=== PATIENT | female | born 2000 | race Caucasian/White ===

== ENCOUNTER 2024-06-29 08:33 | Outpatient (OUT) | payer BC, OTHER, SELFPAY ==
--- NOTE | 2024-06-29 08:37 | US_ITS ---
[address] [address] Patient Name: VIMAL PIZANO MRN: [id number] date: 2000 Sex: F Assigned Patient Location: [facility] Current Patient Location: [facility] Accession/Order Number: [id number] Exam Date: 06/29/2024 08:37 Report Date: 06/29/2024 09:11 At the request of: MACKENZIE SANDERSON Procedure: US OB transvaginal EXAMINATION: US OB transvaginal HISTORY: MISSED MENSES COMPARISON: No relevant comparison available. FINDINGS: GESTATIONAL SAC: Present and normal appearing. YOLK SAC: Present and normal appearing. POLE: Present and normal appearing. CARDIAC: Present. UTERUS: Normal size and appearance. OVARIES: Right: Normal. Left: Normal. CERVIX: 3.5 cm in length and closed. CUL-DE-SAC: Normal. OTHER: None. AGE BY LMP: 9 weeks 0 days LYDIA BY LMP: 02/01/2025 AGE BY US CRL: 7 weeks 1 day LYDIA BY US CRL: 02/14/2025 US/US OB transvaginal IMPRESSION: 1. Single live intrauterine . Electronically authenticated by: ESTEFANY BENNETT Date: 06/29/2024 09:11
== END 2024-06-29 08:34 | disposition home or self-care (01) ==
LOC: NOMS 08:33
PROVIDERS: Visit Provider Obstetrics & Gynecology
DX: Z34.91 Encounter for supervision of normal pregnancy, unspecified, first trimester (principal); Z3A.01 Less than 8 weeks gestation of pregnancy; N92.6 Irregular menstruation, unspecified
CPT/HCPCS: 76817

== ENCOUNTER 2024-07-21 10:05 | Outpatient (OUT) | payer BC, OTHER, SELFPAY ==
--- OUTSIDE RECORDS SUMMARY | 2024-07-21 10:11 | XMS_ITS | CCD ---
Author Organization [facility] Care Team Providers Care Termite Control Technician Name Role Phone MICHAEL ., DR MANN Consulting Unavailable MICHAEL ., DR MANN Admitting Unavailable MICHAEL ., DR MANN Attending Unavailable MISC, DR DOMINIQUE Primary Care Unavailable MICHAEL ., DR MANN Admitting Unavailable MICHAEL ., DR MANN Attending Unavailable MISC, DR DOMINIQUE Primary Care Unavailable MICHAEL ., DR MANN Consulting Unavailable MISC, DR DOMINIQUE Primary Care Unavailable KARASIK ., DR ANTOINE Admitting Unavailabl e KARASIK ., DR ANTOINE Attending Unavailabl e KARASIK ., DR ANTOINE Consulting Unavailabl e MICHAEL ., DR MANN Consulting Unavailable SHARP, DARIN Consulting Unavailable MICHAEL ., DR MANN Procedure Practitioner Unavail able MICHAEL ., DR MANN Admitting Unavailable MICHAEL ., DR MANN Attending Unavailable MISC, DR DOMINIQUE Primary Care Unavailable MICHAEL ., DR MANN Consulting Unavailable MICHAEL ., DR MANN Admitting Unavailable MICHAEL ., DR MANN Attending Unavailable MISC, DR DOMINIQUE Primary Care Unavailable MICHAEL ., DR MANN Consulting Unavailable MICHAEL ., DR MANN Admitting Unavailable MICHAEL ., DR MANN Attending Unavailable MISC, DR DOMINIQUE Primary Care Unavailable MISC, DR DOMINIQUE Primary Care Unavailable HAY ., DR THOMPSON Admitting Unavailable HAY ., DR THOMPSON Attending Unavailable HAY ., DR THOMPSON Consulting Unavailable MISC, DR DOMINIQUE Primary Care Unavailable KARASIK ., DR ANTOINE Admitting Unavailabl e KARASIK ., DR ANTOINE Attending Unavailabl e KARASIK ., DR ANTOINE Consulting Unavailabl e MICHAEL ., DR MANN Admitting Unavailable MICHAEL ., DR MANN Attending Unavailable MISC, DR DOMINIQUE Primary Care Unavailable MICHAEL ., DR MANN Consulting Unavailable MICHAEL ., DR MANN Admitting Unavailable MICHAEL ., DR MANN Attending Unavailable MISC, DR DOMINIQUE Primary Care Unavailable MICHAEL ., DR MANN Consulting Unavailable MICHAEL ., DR MANN Admitting Unavailable MICHAEL ., DR MANN Attending Unavailable MISC, DR DOMINIQUE Primary Care Unavailable MICHAEL ., DR MANN Admitting Unavailable MICHAEL ., DR MANN Attending Unavailable MISC, DR DOMINIQUE Primary Care Unavailable KARASIK ., DR ANTOINE Consulting Unavailabl e WEST, DR COCO Danielle Consulting Unavailable MICHAEL ., DR MANN Consulting Unavailable MICHAEL ., DR MANN Admitting Unavailable MICHAEL ., DR MANN Attending Unavailable MISC, DR DOMINIQUE Primary Care Unavailable MICHAEL ., DR MANN Consulting Unavailable NATALIYA, ANDREAS Consulting Unavailable MISC, DR DOMINIQUE Primary Care Unavailable MICHAEL ., DR MANN Consulting Unavailable KARASIK ., DR ANTOINE Admitting Unavailabl e KARASIK ., DR ANTOINE Attending Unavailabl e MICHAEL ., DR MANN Admitting Unavailable MICHAEL ., DR MANN Attending Unavailable MISC, DR DOMINIQUE Primary Care Unavailable INDIANOLA, DR COCO Danielle Consulting Unavailable MICHAEL ., DR MANN Consulting Unavailable MICHAEL ., DR MANN Admitting Unavailable MICHAEL ., DR MANN Attending Unavailable MISC, DR DOMINIQUE Primary Care Unavailable MICHAEL ., DR MANN Consulting Unavailable MICHAEL ., DR MANN Admitting Unavailable MICHAEL ., DR MANN Attending Unavailable MISC, DR DOMINIQUE Primary Care Unavailable INDIANOLA, DR COCO Danielle Consulting Unavailable MICHAEL ., DR MANN Consulting Unavailable MICHAEL ., DR MANN Admitting Unavailable MICHAEL ., DR MANN Attending Unavailable MISC, DR DOMINIQUE Primary Care Unavailable MICHAEL ., DR MANN Consulting Unavailable ZIEBER, DR ESTEFANY [place] Consulting Unavailable MICHAEL ., DR MANN Admitting Unavailable MICHAEL ., DR MANN Attending Unavailable MISC, DR DOMINIQUE Primary Care Unavailable MICHAEL ., DR MANN Consulting Unavailable ZIEBER, DR ESTEFANY [place] Consulting Unavailable MICHAEL ., DR MANN Admitting Unavailable MICHAEL ., DR MANN Attending Unavailable MISC, DR DOMINIQUE Primary Care Unavailable MICHAEL ., DR MANN Admitting Unavailable MICHAEL ., DR MANN Attending Unavailable MISC, DR DOMINIQUE Primary Care Unavailable MICHAEL ., DR MANN Consulting Unavailable MISC, DR DOMINIQUE Primary Care Unavailable DR MACKENZIE RICHEY Consulting Unavailable CARIDAD NGUYEN Admitting Unavailable CARIDAD NGUYEN Attending Unavailable DONALD, DR ESTEFANY [place] Consulting Unavailable CARIDAD NGUYEN Consulting Unavailable Jennifer Huston Unavailable JEFFERY Huston Attending Provider Jennifer Huston Attending Unavailable Jennifer Huston Admitting Unavailable Vaishali Zapata MD Primary Care Provider Bipin cheng Medications Current Medications Medication Drug Class(es) Dates Sig (Normalized) Sig (Original) ondansetron 4 mg oral tablet (1 source) Serotonin-3 Receptor Antagonist Start: 06-29-2024 take 1 tablet by mouth every six hours as needed for nausea and vomiting and nausea and nausea ondansetron (Zofran) 4 MG tablet Indications: Nausea Take 1 tablet (4 mg) by mouth every 6 (six) hours if needed for nausea or vomiting for up to 120 doses Take 1 tablet by mouth every 6 hours as needed for nausea. 30 tablet 3 06/29/2024 Active Start: 06-29-2024 take 1 tablet by lian th every six hours as needed for nausea and vomiting and nausea and nausea ondansetron (Zofran) 4 MG tablet Indications: Nausea Take 1 tablet (4 mg) by mouth every 6 (six) hours if needed for nausea or vomiting for up to 120 doses Take 1 tablet by mouth every 6 hours as needed for nausea. 30 tablet 3 06/29/2024 Active (1 source) Active Problems Active Problems Problem Classification Problem Date Documented Date Episodic/Chronic Fracture of upper limb (1 source) Nondisplaced fracture of distal phalanx of right thumb, initial encounter for closed fracture Episodic Hypertension complicating ; childbirth and the puerperium (4 sources) Unspecified maternal hypertension, complicating the puerperium; Translations: [UNSPEC MATERNAL HTN COMP PUERPERIUM] Onset: 08-16-2022 Chronic Immunizations and screening for infectious disease (2 sources) Encounter for screening for human papillomavirus (HPV); Translations: [Contact with and (suspected) exposure to infections with a predominantly sexual mode of transmission] Onset: 01-27-2022 Episodic Menstrual disorders (5 sources) Irregular menstruation, unspecified; Translations: [Missed period] Onset: 01-22-2022 Chronic Nausea and vomiting (2 sources) Nausea with vomiting, unspecified; Translations: [Nausea] Onset: 07-07-2022 06-29-2024 Episodic Other connective tissue disease (1 source) Pain in right finger(s) Episodic Other and delivery including normal (16 sources) Single live ; Translations: [Encounter for supervision of other normal , third trimester] Onset: 01-18-2022 Episodic Other screening for suspected conditions (not mental disorders or infectious disease) (14 sources) Encounter for screening for malignant neoplasm of cervix; Translations: [Encounter for screening for diabetes mellitus] Onset: 01-27-2022 Episodic Residual codes; unclassified (1 source) Gestation period, 7 weeks; Translations: [Less than 8 weeks gestation of ] 06-29-2024 Episodic Unclassified (1 source) CONTACT W/AND (SUSP) EXPOS COVID-19; Translations: [CONTACT W/AND (SUSP) EXPOS COVID-19] Onset: 08-25-2022 Unclassified (3 sources) OT SPCF DIS/COND COMPL ; Translations: [OTH SPCF DIS/COND COMPL ] Onset: 05-01-2022 Unclassified (1 source) Pain in right finger(s); Translations: [Pain in right finger(s)] Onset: 12-26-2022 Past or Other Problems Problem Classification Problem Date Documented Da te Episodic/Chronic Abdominal pain (1 source) Unspecified abdominal pain; Translations: [UNSPECIFIED ABDOMINAL PAIN] Onset: 05-01-2022 Episodic Diabetes mellitus without complication (4 sources) Hyperglycemia, unspecified; Translations: [HYPERGLYCEMIA UNSPECIFIED] Onset: 06-03-2022 Episodic Diabetes or abnormal glucose tolerance complicating ; childbirth; or the puerperium (8 sources) Gestational diabetes mellitus in childbirth, unspecified control; Translations: [Gestational diabetes mellitus in , unspecified control] Onset: 07-07-2022 Episodic Genitourinary symptoms and ill-defined conditions (1 source) Personal history of urinary (tract) infections; Translations: [PERS HX URINARY TRACT INFECTIONS] Onset: 08-25-2022 Episodic OB-related trauma to perineum and vulva (1 source) Second degree perineal laceration during delivery; Translations: [SECOND DEG PERINEAL LAC DUR DELIV] Onset: 08-25-2022 Episodic Other complications of (4 sources) Other specified related conditions, third trimester; Translations: [OTH SPEC PREG RELATED COND 3RD TRI] Onset: 07-06-2022 Episodic Other complications of (4 sources) Other specified related conditions, second trimester; Translations: [OTH SPEC PREG RELATED COND 2ND TRI] Onset: 05-10-2022 Episodic Other complications of (1 source) Unspecified infection of urinary tract in , second trimester; Translations: [UNS INF URINARY TRACT PREG 2ND TRI] Onset: 05-11-2022 Episodic Other hematologic conditions (1 source) Personal history of diseases of the blood and blood-forming organs and certain disorders involving the immune mechanism; Translations: [PERS HX DZ BLD/BLD-FRM ORG IMMN MCH] Onset: 01-27-2022 Episodic Other upper respiratory infections (1 source) Acute upper respiratory infection, unspecified; Translations: [ACUTE UP RESPIRATORY INFECTION UNS] Onset: 07-07-2022 Episodic Residual codes; unclassified (1 source) 38 weeks gestation of ; Translations: [38 WEEKS GESTATION OF ] Onset: 08-25-2022 Episodic Residual codes; unclassified (1 source) 37 weeks gestation of ; Translations: [37 WEEKS GESTATION OF ] Onset: 08-05-2022 Episodic Residual codes; unclassified (1 source) 36 weeks gestation of ; Translations: [36 WEEKS GESTATION OF ] Onset: 07-28-2022 Episodic Residual codes; unclassified (1 source) 34 weeks gestation of ; Translations: [34 WEEKS GESTATION OF ] Onset: 07-14-2022 Episodic Residual codes; unclassified (1 source) 33 weeks gestation of ; Translations: [33 WEEKS GESTATION OF ] Onset: 07-07-2022 Episodic Residual codes; unclassified (1 source) 25 weeks gestation of ; Translations: [25 WEEKS GESTATION OF ] Onset: 05-11-2022 Episodic Residual codes; unclassified (1 source) 23 weeks gestation of ; Translations: [23 WEEKS GESTATION OF ] Onset: 05-01-2022 Episodic Unclassified (1 source) OTH SPCF DIS/COND COMPL ; Translations: [OTH SPCF DIS/COND COMPL ] Onset: 04-27-2022 Urinary tract infections (5 sources) Urinary tract infection, site not specified; Translations: [UTI SITE NOT SPECIFIED] Onset: 05-10-2022 Episodic Viral infection (1 source) Viral infection, unspecified; Translations: [VIRAL INFECTION UNSPECIFIED] Onset: 07-07-2022 Episodic Results Test Name Value Interpretation Reference Range Facility HCG ( test) Ql (U)o n 06-29-2024 Interpretation and review of laboratory results Abnormal [facility] Preg Test, Ur Positive [facility] Urinalysis macro (dipstick) panel (U)on 06-29-2024 Bilirubin, UA Negative Negative - 4(70) +++ mg/dL [facility] Blood, UA Negative Negative - 50 Jason/mcL [facility] Clarity, [facility] Glucose, UA Negative Negative - 1999(110) ++++ mg/dL [facility] Interpretation and review of laboratory results Normal [facility] Ketones, UA Negative Negative - 160(16) ++++ mg/dL [facility] Leukocytes, UA Negative Negative - 500+++ Carlos/mcL [facility] Nitrite, UA Negative Negative - Positive [facility] pH, UA 7.0 5 - 9 [facility] Protein, UA Negative Negative - 1999(20) ++++ mg/dL [facility] Spec Grav, UA 1.015 1 - 1.03 [facility] Urobilinogen, UA 0.2 0.2 - 12 mg/dL [facility] hand RT min 3V*on 023 XR hand RT min 3V* [facility] [place] [address] XRay Report Signed Patient: Amber Funes MR#: [id number] [birth year] : 2000 Acct:[id number] Age/Sex: 22 / F ADM Date: 12/26/22 Loc: XDUC Room: Type: [facility] Attending Dr: Jennifer GIL Copies to: JEFFERY Rodriguez Ordering Provider: JEFFERY Rodriguez Date of Service: 12/26/22 XR/XR hand RT min 3V*: RIGHT HAND INJURY RIGHT HAND - 4 views REASON FOR EXAM: Patient had right thumb hyperextended yesterday when trying to open the door. Now with pain. COMPARISON: None FINDINGS: No focal soft tissue abnormality. There appears to be avulsion fracture involving the base of the distal phalanx of the thumb. Joint spaces appear maintained. No bony erosions. XR/XR hand RT min 3V* IMPRESSION: AVULSION FRACTURE INVOLVING THE BASE OF THE DISTAL PHALANX OF THE THUMB. Impression dictated by: Bulmaro Arias Jr., D.OGene12/26/2022 1:44 PM Dictation Location: [id number]-15 Transcribed By: [facility] 12/26/22 1344 Dictated By: Bulmaro Arias Jr, DO 12/26/22 1343 Signed By: 12/26/22 1344 [facility] XR hand RT min 3V* [facility] [employer] Other XR hand RT min 3V* [facility] Other XR hand RT min 3V* [address] [place] [address] [facility] Other XR hand RT min 3V* [place] [address] [facility] Other XR hand RT min 3V* XRay Report [facility] Other XR hand RT min 3V* Signed [facility] Other XR hand RT min 3V* Patient: Amber Funes MR#: [id number] [facility] Other XR hand RT min 3V* 18 [facility] Other XR hand RT min 3V* : 2000 Acct:[id number] [facility] Other XR hand RT min 3V* Age/Sex: 22 / F ADM Date: 12/26/22 [facility] Other XR hand RT min 3V* Loc: XDUCLY Room: Type: REG CLI [facility] Other XR hand RT min 3V* Attending Dr: Jennifer GIL [facility] Other XR hand RT min 3V* Copies to: JEFFERY Rodriguez [facility] Other XR hand RT min 3V* Ordering Provider: JEFFERY Rodriguez [facility] Other XR hand RT min 3V* Date of Service: 12/26/22 [facility] Other XR hand RT min 3V* XR/XR hand RT min 3V*: RIGHT HAND INJURY [facility] Other XR hand RT min 3V* RIGHT HAND - 4 views [facility] Other XR hand RT min 3V* REASON FOR EXAM: Patient had right thumb hyperextended yesterday when trying to open the door. Now [facility] Other XR hand RT min 3V* with pain. [facility] Other XR hand RT min 3V* COMPARISON: None [facility] Other XR hand RT min 3V* FINDINGS: [facility] Other XR hand RT min 3V* No focal soft tissue abnormality. There appears to be avulsion fracture involving the base of the [facility] Other XR hand RT min 3V* distal phalanx of the thumb. Joint spaces appear maintained. No bony erosions. [facility] Other XR hand RT min 3V* XR/XR hand RT min 3V* [facility] Other XR hand RT min 3V* IMPRESSION: [facility] Other XR hand RT min 3V* AVULSION FRACTURE INVOLVING THE BASE OF THE DISTAL PHALANX OF THE THUMB. [facility] Other XR hand RT min 3V* Impression dictated by: Bulmaro Arias Jr., D.O.12/26/2022 1:44 PM [facility] Other XR hand RT min 3V* Dictation Location: [place] [address] [facility] Other XR hand RT min 3V* Transcribed By: P[facility] 12/26/22 1344 [facility] Other XR hand RT min 3V* Dictated By: Bulmaro Arias Jr, DO 12/26/22 134 [facility] Other XR hand RT min 3V* Signed By: [facility] Other XR hand RT min 3V* 12/26/[address] [place] [address] [employer] Other PAP ACOG PANEL 2: 22 to 30on 11-09-2022 . . Normal [facility] Comment on above: Performed By: #### [id number] ####[facility] [id number] [place] [address]DrGene Mancini Age Gdln ACOG Testing - [facility] Comment on above: Performed By: #### [id number] ####[facility] [id number] [place] [id number] Mancini DIAGNOSIS: Comment [facility] Comment on above: Result Comment: NEGA TIVE FOR INTRAEPITHELIAL LESION OR MALIGNANCY. Performed By: #### [id number] ####[facility] [id number] [place] [id number] Mancini Methodology: Comment [facility] Comment on above: Result Comment: This liquid based ThinPrep(R) pap test was screened with the use of an image guided system. Performed By: #### 4 [id number] ####[facility] [id number] [place] [address]DrGene Mancini Note: Comment [facility] Comment on above: Result Comment: The Pap smear is a screening test designed to aid in the detection of premalignant and malignant conditions of the uterine cervix. It is not a diagnostic procedure and should not be used as the sole means of detecting cervical cancer. Both false-positive and false-negative reports do occur. . Performed By: #### 4 [id number] ####[facility] [id number] [place] [address]DrGene Mancini Performed by: Comment Normal [facility] Comment on above: Result Comment: Zuleima Lin, Sheet Metal Production Worker (ASCP) Performed By: #### 4 [id number] ####[facility] [address] [place], [place] [address]Dr. Donis Mancini Reflex Criteria: Comment Normal [facility] Comment on above: Result Comment: The HPV DNA reflex criteria were not met with this specimen result therefore, no HPV testing was performed. . Performed By: #### 4 [id number] ####[facility] [address] [place], [place] [address]DrGene Mancini Specimen adequacy: Comment Normal [facility] Comment on above: Result Comment: Sati sfactory for evaluation. Endocervical and/or squamous metaplastic cells (endocervical component) are present. Performed By: #### 4 [id number] ####[facility] [id number] [place], [place] [address]Dr. Donis Mancini CBC AUTO DIFFon 08-11-2022 BASO # 0.0 103/ul Normal 0.0-0.1 [facility] Comment on above: Performed By: #### C T/NGNA #### [facility] [address] [place] [address] Dr. Donis Mancini Basophils/100 WBC (Bld) 0.2 % Normal 0.2-2.0 [facility] Comment on above: Performed By: #### C T/NGNA #### [facility] [address] [place] [address] Dr. Donis Mancini EO # 0.1 103/ul Normal 0.0-0.7 [facility] Comment on above: Performed By: #### C T/NGNA #### [facility] [address] [address] [address] Donis Mancini Eosinophils/100 WBC (Bld) 0.5 % Critically low 0.9-7.0 [facility] Comment on above: Performed By: #### C T/NGNA #### [facility] [address] [place] [address] Dr. Donis Mancini Erythrocyte distribution width (RBC) [Ratio] 12.5 % Normal 11.0-15.0 [facility] Comment on above: Performed By: #### C T/NGNA #### [facility] [address] [place] [address] Dr. Donis Mancini Hematocrit (Bld) [Volume fraction] 35.9 % Critically low 36.0-48.0 [facility] Comment on above: Performed By: #### C T/NGNA #### [facility] [address] [place] [address] Dr. Donis Mancini Hemoglobin (Bld) [Mass/Vol] 12.4 g/dL Normal 12.0-16.0 [facility] Comment on above: Result Comment: michelet ent delivered Performed By: #### C T/NGNA #### [facility] [address] [place] [address] Dr. Donis Mancini IG # 0.10 10e3/ul Critically high 0.00-0.03 [facility] Comment on above: Performed By: #### C T/NGNA #### [facility] [address] [place] [address] Dr. Donis Mancini IG % 0.5 % Normal 0.0-0.5 [facility] Comment on above: Performed By: #### C T/NGNA #### [facility] [address] [place] [address] Dr. Donis Mancini LYMPH # 1.5 103/ul Normal 1.2-3.8 [facility] Comment on above: Performed By: #### C T/NGNA #### [facility] [address] [place] [address] Dr. Donis Mancini Lymphocytes/100 WBC (Bld) 7.6 % Critically low 20.5-60.0 [facility] Comment on above: Performed By: #### C T/NGNA #### [facility] [address] [place] [address] Dr. Donis Mancini MANUAL DIFF REQ NO Normal [facility] Comment on above: Performed By: #### C T/NGNA #### [facility] [address] [place] [address] Dr. Donis Mancini MCH (RBC) [Entitic mass] 32.2 pg Normal 26.7-34.0 [facility] Comment on above: Performed By: #### C T/NGNA #### [facility] [address] [place] [address] Dr. Donis Mancini MCHC (RBC) [Mass/Vol] 34.5 g/dL Normal 29.9-35.2 [facility] Comment on above: Performed By: #### C T/NGNA #### [facility] [address] [place] [address] Dr. Donis Mancini MCV (RBC) [Entitic vol] 93.2 fL Normal 81.0-99.0 [facility] Comment on above: Performed By: #### C T/NGNA #### [facility] [address] [place] [address] Dr. Donis Mancini MONO # 1.3 103/ul Critically high 0.3-0.8 [facility] Comment on above: Performed By: #### C T/NGNA #### [facility] [address] [place] [address] Dr. Donis Mancini Monocytes/100 WBC (Bld) 6.8 % Normal 1.7-12.0 [facility] Comment on above: Performed By: #### C T/NGNA #### [facility] [address] [place] [address] Dr. Donis Mancini NEUT # 16.2 103/ul Critically high 1.4-6.5 [facility] Comment on above: Performed By: #### C T/NGNA #### [facility] [address] [place] [address] Dr. Donis Mancini Neutrophils/100 WBC (Bld) 84.4 % Critically high 43.0-75.0 [facility] Comment on above: Performed By: #### C T/NGNA #### [facility] [address] [address] [address] Donis Mancini Platelet mean volume (Bld) [Entitic vol] 11.8 fL Normal 9.5-13.5 [facility] Comment on above: Performed By: #### C T/NGNA #### [facility] [address] [address] [address] Donis Mancini PLT 156 103/ul Normal 150-450 [facility] Comment on above: Performed By: #### C T/NGNA #### [facility] [address] [place] [address] Dr. Donis Mancini RBC 3.85 106/ul Critically low 4.20-5.40 [facility] Comment on above: Performed By: #### C T/NGNA #### [facility] [address] [place] [address] Dr. Donis Mancini WBC 19.2 103/ul Critically high 4.0-11.0 [facility] Comment on above: Performed By: #### C T/NGNA #### [facility] [address] [place] [address] Dr. Donis Mancini [facility] SARS-CoV-2 (COVID-19) RNA INESSA+probe Ql (Unsp spec) Not detected Normal NOT DETECTED [facility] Comment on above: Result Comment: When diagnostic testing is negative, the possibility of a false negative should be considered in the context of a patient's recent exposures and the presence of clinical signs and symptoms consistent with SARS-CoV-2. This test is not yet approved or cleared by the [place] FDA. When there are no FDA-approved or cleared tests available, and other criteria are met, FDA can make tests available under an emergency access mechanism called an Emergency Use Authorization (EUA). The EUA for this test is supported by the [place] of Health and Human Service's declaration that circumstances exist to justify the emergency use of in vitro diagnostics for the detection and/or diagnosis of the virus that causes COVID-19. This EUA will remain in effect for the duration of the COVID-19 declaration justifying emergency of IVDs, unless it is terminated or revoked by the FDA (after which the test may no longer be used). Performed By: #### C VDTBH ####[facility] Vbncgpaqql[address] [place], [place] [address]Dr. Donis Live DRUG SCREEN RAPID (URINE)on 08-10-2022 AMP Negative Normal NEGATIVE The [facility] Comment on above: Performed By: #### D RUGRPD ####[facility] Ngpesgmpcf[address] [place], [place] [address]Dr. Donis Mancini BAR Negative Normal NEGATIVE The [facility] Comment on above: Performed By: #### D RUGRPD ####[facility] Zpztdjalxq[address] [place], [place] [address]Dr. Donis [facility] BUP Negative Normal NEGATIVE The [facility] Comment on above: Performed By: #### D RUGRPD ####[facility] Bpkawhiwpo[address] [place], [place] [address]Dr. Donis Mancini BZO Negative Normal NEGATIVE The [facility] Comment on above: Performed By: #### D RUGRPD ####[facility] Fofegakyhk[address] [place], [place] [address]Dr. Donis Mancini ALEXA Negative Normal NEGATIVE The [facility] Comment on above: Performed By: #### D RUGRPD ####[facility] Zxpffturow[address] [place], [place] [address]Dr. Donis [facility] CUT-OFFS SEE BELOW Normal The [facility] Comment on above: Result Comment: AMP (Amphetamine): 500ng/mL, BAR (Barbituates): 200 ng/mL, BZO (Benzodiazepines): 150 ng/mL, BUP (Buprenorphine): 10 ng/mL, ALEXA (Cocaine): 150 ng/mL, mAMP (Methamphetamine): 500 ng/mL, MTD (Methadone): 200 ng/mL, OPI (Opiates): 100 ng/mL, OXY (Oxycodone): 100 ng/mL, PCP (Phencyclidine): 25 ng/mL, PPX (Propoxyphene): 300 ng/mL, THC (Cannabinoids): 50 ng/mL, TCA (Trycyclic Antidepressants): 300 ng/mL Performed By: #### D RUGRPD ####[facility] Pnzopdatnn[address] [place], [place] [address]Dr. Donis Mancini DRUG CUT HEADER DRUG CLASS TEST SYSTEM CUT-OFF CONCENTRATIONS ARE FOLLOWS: Normal The [facility] Comment on above: Performed By: #### D RUGRPD ####[facility] Ugkbiqsnpb[address] [place], [place] [address]Dr. Donis Mancini mAMP Negative Normal NEGATIVE The [facility] Comment on above: Performed By: #### D RUGRPD ####[facility] Pevfgfyoxz[address] [place], [place] [address]Dr. Donis Mancini MTD Negative Normal NEGATIVE The [facility] Comment on above: Performed By: #### D RUGRPD ####[facility] Poytftrryc[address] [place], [place] [address]Dr. Donis Mancini OPI Negative Normal NEGATIVE The [facility] Comment on above: Performed By: #### D RUGRPD ####[facility] Uvalmrxmvd[address] [place], [place] [address]Dr. Donis Mancini OXY Negative Normal NEGATIVE The [facility] Comment on above: Performed By: #### D RUGRPD ####[facility] Spdyyyubgw[address] [place], [place] [address]Dr. Donis Mancini PCP Negative Normal NEGATIVE The [facility] Comment on above: Performed By: #### D RUGRPD ####[facility] Latmrdcroh[address] [place], [place] [address]Dr. Donis Mancini PPX Negative Normal NEGATIVE The [facility] Comment on above: Performed By: #### D RUGRPD ####[facility] Rzeipxjvrt[address] [place], [place] [address]Dr. Donis Mancini TCA Negative Normal NEGATIVE The [facility] Comment on above: Performed By: #### D RUGRPD ####[facility] Rbewlogvic[address] [place], [place] [address]Dr. Donis Mancini THC Negative Normal NEGATIVE The [facility] Comment on above: Performed By: #### D RUGRPD ####[facility] Wowuguatqp3425 [place], [place] [address]Sy. Donis Mancini TYPE AND SCREENon 08-10-2022 TYPE AND SCREEN Negative Normal [facility] Comment on above: Performed By: #### T NS ####[facility] Cmlmqldqds5021 [place], [place] [address]Bs. Donis Mancini US PREG BIOPHY W NON STRESSo n 08-10-2022 US PREG BIOPHY W NON STRESS EXAMINATION: US PREG BIOPHY W NON STRESS HISTORY: Gestational diabetes mellitus COMPARISON: Ultrasound biophysical 07/31/2022 TECHNIQUE: Ultrasound biophysical profile was performed. FINDINGS: BREATHING MOVEMENTS: 2.0 GROSS BODY MOVEMENTS: 2.0 TONE: 2.0 QUALITATIVE AMNIOTIC FLUID VOLUME: 2.0 PRESENTATION: CEPHALIC HEART RATE: 143.6 bpm bpm. AMNIOTIC FLUID VOLUME: 14.4 cm GESTATIONAL AGE: 38 weeks 1 days CONCLUSION: Total biophysical profile score 8.0. Electronically authenticated by: ESTEFANY BENNETT Date: 2022-08-10 07:18 Normal The [facility] US PREG GROWTHon 08-10-2022 US PREG GROWTH EXAMINATION: US PREG GROWTH HISTORY: Gestational diabetes mellitus COMPARISON: Ultrasound growth 07/10/2022 FINDINGS: Heart Rate: 143.6 bpm Number: 1.0 Position: CEPHALIC Amniotic Fluid Volume: 14.4 cm Maximum Vertical Pocket: 5.9 cm BIOMETRY: BPD: 8.8 cm cm; 35 weeks 5 days; 14% HC: 32.4 cmcm; 36 weeks 5 days; 7% AC: 35.7 cm cm; 39 weeks 4 days; 94% FL: 7.0 cm cm; 36 weeks 0 days; 9% EFW: 3370.2 grams; 60% FL/AC: 19.7 FL/BPD: 79.5 HC/AC: 0.9 GESTATIONAL AGE: Age by EDC: 38 weeks 1 days LYDIA by EDC: 08/20/2022 Age by US: 37 weeks 0 days LYDIA by US: 08/28/2022 IMPRESSION: 1. Single live intrauterine with growth detailed above. Electronically authenticated by: ESTEFANY BENNETT Date: 2022-08-10 07:16 Normal [facility] CBC AUTO DIFFon 08-09-2022 BASO # 0.0 103/ul Normal 0.0-0.1 [facility] Comment on above: Performed By: #### C BC ####[facility] [address] [place] [address]Dr. Laceyjavi Live Basophils/100 WBC (Bld) 0.2 % Normal 0.2-2.0 [facility] Comment on above: Performed By: #### C BC ####[facility] Rlbtmjjzzc58[address] [place] [address]Dr. Donis Mancini EO # 0.4 103/ul Normal 0.0-0.7 The [facility] Comment on above: Performed By: #### C BC ####[facility] Fgujishhba[address] [place], [place] [address]Dr. Donis Mancini Eosinophils/100 WBC (Bld) 2.8 % Normal 0.9-7.0 [facility] Comment on above: Performed By: #### C BC ####[facility] Ihwjoixdky83[address] [place], [place] [address]Dr. Laceyjavi Mancini Erythrocyte distribution width (RBC) [Ratio] 12.2 % Normal 11.0-15.0 [facility] Comment on above: Performed By: #### C BC ####[facility] Nmomyzhqqa[address] [place], [place] [address]Dr. Donis Mancini Hematocrit (Bld) [Volume fraction] 41.4 % Normal 36.0-48.0 [facility] Comment on above: Performed By: #### C BC ####[facility] Vnkvapcmmv[address] [place], [place] [address]Dr. Donis Live Hemoglobin (Bld) [Mass/Vol] 14.4 g/dL Normal 12.0-16.0 The [facility] Comment on above: Performed By: #### C BC ####[facility] Grmpzivrus[address] [place], [place] [address]Dr. Donis Mancini IG # 0.06 10e3/ul Critically high 0.00-0.03 [facility] Comment on above: Performed By: #### C BC ####[facility] Llewcgzftp8[address] [place], [place] [address]Dr. Donis Mancini IG % 0.5 % Normal 0.0-0.5 [facility] Comment on above: Performed By: #### C BC ####[facility] Pb[address]pyjxnb38[address] [place] [address]DrGene Mancini LYMPH # 1.5 103/ul Normal 1.2-3.8 The [facility] Comment on above: Performed By: #### C BC ####[facility] Bftitykikm87[address] [place] [address]DrGene Mancini Lymphocytes/100 WBC (Bld) 11.7 % Critically low 20.5-60.0 The [facility] Comment on above: Performed By: #### C BC ####[facility] Jcevzmuaht[address] [place], [place] [address]DrGene Mancini MANUAL DIFF REQ NO Normal [facility] Comment on above: Performed By: #### C BC ####[facility] Nnltbwimaf[address] [place], [place] [address]DrGene Mancini MCH (RBC) [Entitic mass] 31.9 pg Normal 26.7-34.0 The [facility] Comment on above: Performed By: #### C BC ####[facility] S[address]dggtmml[address] [place], [place] [address]DrGene Mancini MCHC (RBC) [Mass/Vol] 34.8 g/dL Normal 29.9-35.2 The [facility] Comment on above: Performed By: #### C BC ####[facility] Vymepoxzor[address] [place], [place] [address]DrGene Mancini MCV (RBC) [Entitic vol] 91.8 fL Normal 81.0-99.0 The [facility] Comment on above: Performed By: #### C BC ####[facility] Lkklfcb[address] [place], [place] [address]DrGene Mancini MONO # 1.0 103/ul Critically high 0.3-0.8 [facility] Comment on above: Performed By: #### C BC ####[facility] C[address]htwaofmz[address] [place], [place] [address]DrGene Mancini Monocytes/100 WBC (Bld) 7.5 % Normal 1.7-12.0 The [facility] Comment on above: Performed By: #### C BC ####[facility] [address] [place] [address]Dr. Donis Mancini NEUT # 10.0 103/ul Critically high 1.4-6.5 [facility] Comment on above: Performed By: #### C BC ####[facility] Obrmjwldqo[address] [place] [address]Dr. Donis Mancini Neutrophils/100 WBC (Bld) 77.3 % Critically high 43.0-75.0 The [facility] Comment on above: Performed By: #### C BC ####[facility] Hyhvnzuxio34[address] [place] [address]Dr. Donis Mancini Platelet mean volume (Bld) [Entitic vol] 11.6 fL Normal 9.5-13.5 The [facility] Comment on above: Performed By: #### C BC ####[facility] Hwr[address]bx[address]ux[address] [place] [address]Dr. Donis Live PLT 184 103/ul Normal 150-450 The [facility] Comment on above: Performed By: #### C BC ####[facility] Zhx[address]fvfhhb[address] [place] [address]Dr. Donis Mancini RBC 4.51 106/ul Normal 4.20-5.40 The [facility] Comment on above: Performed By: #### C BC ####[facility] [address]qu[address] [place] [address]Dr. Donis Live WBC 12.9 103/ul Critically high 4.0-11.0 [facility] Comment on above: Performed By: #### C BC ####[facility] [address] [place] [id number] Mancini LDHon 08-09-2022 LDH 167 U/L Normal 81-234 The [facility] Comment on above: Performed By: #### C T/NGNA #### [facility] [address] [address] [address] Donis Mancini PROF 14(COMP METB)on 022 Albumin [Mass/Vol] 2.7 g/dL Critically low 3.4-5.0 [facility] Comment on above: Performed By: #### C T/NGNA #### [facility] [address] [address] [address] Donis Mancini Albumin/Globulin [Mass ratio] 0.6 {ratio} Normal [facility] Comment on above: Performed By: #### C T/NGNA #### [facility] [address] [address] [address] Donis Mancini ALP [Catalytic activity/Vol] 176 U/L Critically high 46-116 [facility] Comment on above: Performed By: #### C T/NGNA #### [facility] [address] [place] [address] Dr. Donis Mancini ALT [Catalytic activity/Vol] 20 U/L Normal 14-59 [facility] Comment on above: Performed By: #### C T/NGNA #### [facility] [address] [place] [address] Dr. Donis Mancini Anion gap [Moles/Vol] 12.9 mmol/L Normal [facility] Comment on above: Performed By: #### C T/NGNA #### [facility] [address] [place] [address] Dr. Donis Mancini AST [Catalytic activity/Vol] 20 U/L Normal 15-37 [facility] Comment on above: Performed By: #### C T/NGNA #### [facility] [address] [address] [address] Donis Mancini Bilirubin [Mass/Vol] 0.1 mg/dL Critically low 0.2-1.0 [facility] Comment on above: Performed By: #### C T/NGNA #### [facility] [address] [address] [address] Donis Mancini Calcium [Mass/Vol] 9.1 mg/dL Normal 8.5-10.1 [facility] Comment on above: Performed By: #### C T/NGNA #### [facility] [address] [address] [address] Donis Mancini Chloride [Moles/Vol] 104 mmol/L Normal 98-107 The [facility] Comment on above: Performed By: #### C T/NGNA #### [facility] [address] [place] [address] Dr. Donis Mancini CO2 [Moles/Vol] 22.9 mmol/L Normal 21.0-32.0 [facility] Comment on above: Performed By: #### C T/NGNA #### [facility] [address] [place] [address] Dr. Donis Mancini Creatinine [Mass/Vol] 0.43 mg/dL Critically low 0.55-1.02 [facility] Comment on above: Performed By: #### C T/NGNA #### [facility] [address] [place] [address] Dr. Donis Mancini EGFR-AF SINGAPOREAN >60 Normal >=60 [facility] Comment on above: Performed By: #### C T/NGNA #### [facility] [address] [place] [address] Dr. Donis Mancini EGFR-NON AF SINGAPOREAN >60 Normal >=60 [facility] Comment on above: Performed By: #### C T/NGNA #### [facility] [address] [place] [address] Dr. Donis Mancini Globulin (S) [Mass/Vol] 4.2 g/dL Normal [facility] Comment on above: Performed By: #### C T/NGNA #### [facility] [address] [place] [address] Dr. Donis Mancini Glucose [Mass/Vol] 95 mg/dL Normal 74-106 [facility] Comment on above: Performed By: #### C T/NGNA #### [facility] [address] [place] [address] Dr. Donis Mancini Potassium [Moles/Vol] 3.8 mmol/L Normal 3.5-5.1 The [facility] Comment on above: Performed By: #### C T/NGNA #### [facility] [address] [place] [address] Dr. Donis Mancini Protein [Mass/Vol] 6.9 g/dL Normal 6.4-8.2 [facility] Comment on above: Performed By: #### C T/NGNA #### [facility] [address] [place] [address] Dr. Donis Mancini Sodium [Moles/Vol] 136 mmol/L Normal 136-145 [facility] Comment on above: Performed By: #### C T/NGNA #### [facility] [address] [place] [address] Dr. Donis Mancini Urea nitrogen [Mass/Vol] 10.0 mg/dL Normal 7.0-18.0 [facility] Comment on above: Performed By: #### C T/NGNA #### [facility] [address] [place] [address] Dr. Donis Mancini Urea nitrogen/Creatinine [Mass ratio] 23.3 mg/mg Normal [facility] Comment on above: Performed By: #### C T/NGNA #### [facility] [address] [place] [address] Dr. Donis Mancini URIC ACID SERUMon 08-09-2022 Urate [Mass/Vol] 3.6 mg/dL Normal 2.6-6.0 [facility] Comment on above: Performed By: #### C T/NGNA #### [facility] [address] [place] [address] Dr. Donis Mancini CBC AUTO DIFFon 08-07-2022 BASO # 0.0 103/ul Normal 0.0-0.1 [facility] Comment on above: Performed By: #### U AMIC #### [facility] [address] [place] [address] Dr. Donis Mancini Basophils/100 WBC (Bld) 0.2 % Normal 0.2-2.0 [facility] Comment on above: Performed By: #### U AMIC #### [facility] [address] [place] [address] Dr. Donis Mancini EO # 0.2 103/ul Normal 0.0-0.7 [facility] Comment on above: Performed By: #### U AMIC #### [facility] [address] [address] [address] Donis Mancini Eosinophils/100 WBC (Bld) 1.8 % Normal 0.9-7.0 [facility] Comment on above: Performed By: #### U AMIC #### [facility] [address] [place] [address] Dr. Donis Mancini Erythrocyte distribution width (RBC) [Ratio] 12.3 % Normal 11.0-15.0 [facility] Comment on above: Performed By: #### U AMIC #### [facility] [address] [place] [address] Dr. Donis Mancini Hematocrit (Bld) [Volume fraction] 45.7 % Normal 36.0-48.0 [facility] Comment on above: Performed By: #### U AMIC #### [facility] [address] [place] [address] Dr. Donis Mancini Hemoglobin (Bld) [Mass/Vol] 16.0 g/dL Normal 12.0-16.0 [facility] Comment on above: Performed By: #### U AMIC #### [facility] [address] [place] [address] Dr. Donis Mancini IG # 0.07 10e3/ul Critically high 0.00-0.03 [facility] Comment on above: Performed By: #### U AMIC #### [facility] [address] [place] [address] Dr. Donis Mancini IG % 0.5 % Normal 0.0-0.5 [facility] Comment on above: Performed By: #### U AMIC #### [facility] [address] [place] [address] Dr. Donis Mancini LYMPH # 1.5 103/ul Normal 1.2-3.8 The [facility] Comment on above: Performed By: #### U AMIC #### [facility] [address] [place] [address] Dr. Donis Mancini Lymphocytes/100 WBC (Bld) 11.2 % Critically low 20.5-60.0 [facility] Comment on above: Performed By: #### U AMIC #### [facility] [address] [address] [address] Donis Mancini MANUAL DIFF REQ NO Normal [facility] Comment on above: Performed By: #### U AMIC #### [facility] [address] [address] [address] Donis Mancini MCH (RBC) [Entitic mass] 32.0 pg Normal 26.7-34.0 [facility] Comment on above: Performed By: #### U AMIC #### [facility] [address] [address] [address] Donis Mancini MCHC (RBC) [Mass/Vol] 35.0 g/dL Normal 29.9-35.2 The [facility] Comment on above: Performed By: #### U AMIC #### [facility] [address] [place] [address] Dr. Donis Mancini MCV (RBC) [Entitic vol] 91.4 fL Normal 81.0-99.0 [facility] Comment on above: Performed By: #### U AMIC #### [facility] [address] [place] [address] Dr. Donis Mancini MONO # 0.9 103/ul Critically high 0.3-0.8 [facility] Comment on above: Performed By: #### U AMIC #### [facility] [address] [place] [address] Dr. Donis Mancini Monocytes/100 WBC (Bld) 6.3 % Normal 1.7-12.0 [facility] Comment on above: Performed By: #### U AMIC #### [facility] [address] [address] [address] Donis Mancini NEUT # 10.9 103/ul Critically high 1.4-6.5 [facility] Comment on above: Performed By: #### U AMIC #### [facility] [address] [address] [address] Donis Mancini Neutrophils/100 WBC (Bld) 80.0 % Critically high 43.0-75.0 [facility] Comment on above: Performed By: #### U AMIC #### [facility] [address] [address] [address] Donis Mancini Platelet mean volume (Bld) [Entitic vol] 11.5 fL Normal 9.5-13.5 [facility] Comment on above: Performed By: #### U AMIC #### [facility] [id number] Donis Mancini PLT 182 103/ul Normal 150-450 [facility] Comment on above: Performed By: #### U AMIC #### [facility] [id number] Donis Mancini RBC 5.00 106/ul Normal 4.20-5.40 [facility] Comment on above: Performed By: #### U AMIC #### [facility] [address] [address] [address] Donis Mancini WBC 13.6 103/ul Critically high 4.0-11.0 [facility] Comment on above: Performed By: #### U AMIC #### [facility] [id number] Donis Mancini LDHon 08-07-2022 LDH 171 U/L Normal 81-234 [facility] Comment on above: Performed By: #### C MP, URIC, LDH ####[facility] [address] [place] [address]Dr. Donis Mancini PROF 14(COMP METB)on 022 Albumin [Mass/Vol] 2.9 g/dL Critically low 3.4-5.0 [facility] Comment on above: Performed By: #### C MP, URIC, LDH ####[facility] Q[address]xy[address]vic[address] [place] [id number]. Donis Mancini Albumin/Globulin [Mass ratio] 0.6 {ratio} Normal [facility] Comment on above: Performed By: #### C MP, URIC, LDH ####[facility] Xr[address]rukjic[address] [place] [id number]. Donis Mancini ALP [Catalytic activity/Vol] 192 U/L Critically high 46-116 [facility] Comment on above: Performed By: #### C MP, URIC, LDH ####[facility] [address] [place] [address]Dr. Donis Mancini ALT [Catalytic activity/Vol] 23 U/L Normal 14-59 [facility] Comment on above: Performed By: #### C MP, URIC, LDH ####[facility] Erprfmgeyp[address] [place] [address]Dr. Donis Mancini Anion gap [Moles/Vol] 14.4 mmol/L Normal [facility] Comment on above: Performed By: #### C MP, URIC, LDH ####[facility] [address] [place], [place] [address]Dr. Donis Mancini AST [Catalytic activity/Vol] 23 U/L Normal 15-37 [facility] Comment on above: Performed By: #### C MP, URIC, LDH ####[facility] [address]rmlrn[address] [place], [place] [address]Dr. Donis Mancini Bilirubin [Mass/Vol] 0.2 mg/dL Normal 0.2-1.0 [facility] Comment on above: Performed By: #### C MP, URIC, LDH ####[facility] [address] [place], [place] [address]Dr. Donis Mancini Calcium [Mass/Vol] 9.4 mg/dL Normal 8.5-10.1 [facility] Comment on above: Performed By: #### C MP, URIC, LDH ####[facility] [address]cpewrj[address] [place] [address]Dr. Donis Mancini Chloride [Moles/Vol] 104 mmol/L Normal 98-107 The [facility] Comment on above: Performed By: #### C MP, URIC, LDH ####[facility] [address]ys[address] [place], [place] [address]Dr. Donis Mancini CO2 [Moles/Vol] 21.7 mmol/L Normal 21.0-32.0 [facility] Comment on above: Performed By: #### C MP, URIC, LDH ####[facility] [address]oz[address] [place] [id number]. Donis Mancini Creatinine [Mass/Vol] 0.46 mg/dL Critically low 0.55-1.02 The [facility] Comment on above: Performed By: #### C MP, URIC, LDH ####[facility] [address]uiocrji[address] [place] [id number]. Donis Mancini EGFR-AF SINGAPOREAN >60 Normal >=60 [facility] Comment on above: Performed By: #### C MP, URIC, LDH ####[facility] [address]zjdv[address] [place] [id number]. Donis Mancini EGFR-NON AF [place]INGAPOREAN >60 Normal >=60 The [facility] Comment on above: Performed By: #### C MP, URIC, LDH ####[facility] [address]wwsypty[address] [place] [address]Dr. Donis Mancini Globulin (S) [Mass/Vol] 4.6 g/dL Normal [facility] Comment on above: Performed By: #### C MP, URIC, LDH ####[facility] [address]uyx[address] [place] [address]Dr. Donis Mancini Glucose [Mass/Vol] 89 mg/dL Normal 74-106 [facility] Comment on above: Performed By: #### C MP, URIC, LDH ####[facility] Ixqurgexpr[address] [place] [id number]. Donis Mancini Potassium [Moles/Vol] 4.1 mmol/L Normal 3.5-5.1 The [facility] Comment on above: Performed By: #### C MP, URIC, LDH ####[facility] Bkebwfqfpv[address] [place] [id number]. Donis Mancini Protein [Mass/Vol] 7.5 g/dL Normal 6.4-8.2 [facility] Comment on above: Performed By: #### C MP, URIC, LDH ####[facility] [address] [place] [address]Dr. Donis Mancini Sodium [Moles/Vol] 136 mmol/L Normal 136-145 [facility] Comment on above: Performed By: #### C MP, URIC, LDH ####[facility] [address] [place], [place] [address]LnDr. Donis Mancini Urea nitrogen [Mass/Vol] 8.0 mg/dL Normal 7.0-18.0 [facility] Comment on above: Performed By: #### C MP, URIC, LDH ####[facility] [address] [place] [id number]. Donis Mancini Urea nitrogen/Creatinine [Mass ratio] 17.4 mg/mg Normal The [facility] Comment on above: Performed By: #### C MP, URIC, LDH ####[facility] [address] [place] [id number]. Donis Mancini PROTIMEon 08-07-2022 INR Coag (PPP) [Relative time] {INR} Normal The [facility] Comment on above: Performed By: #### U AMIC #### [facility] [address] [place] [address] Dr. Donis Mancini INR GUIDELINES SEE BELOW Normal [facility] Comment on above: Result Comment: NICCI RED INR: 2.0 - 3.0 CONDITIONS NOT LISTED BELOW 2.5 - 3.5 FOR PROSTHETIC HEART VALVE REPLACEMENT 2.5 - 3.5 RECURRENT THROMBOSIS Performed By: #### U AMIC #### [facility] [address] [place] [address] Dr. Donis Mancini PT Coag (PPP) [Time] 9.8 s Normal 9.0-11.6 The [facility] Comment on above: Performed By: #### U AMIC #### [facility] [address] [place] [address] Dr. Donis Mancini PTTon 08-07-2022 aPTT Coag (Bld) [Time] 28.5 s Normal 22.3-36.2 The [facility] Comment on above: Performed By: #### U AMIC #### [facility] [address] [place] [address] Dr. Donis Mancini UA (CLEAN/CATCH) WAD BLANKING PRESS ADJUSTER/MICRO I F IND.on 08-07-2022 Bilirubin Ql (U) Negative Normal NEGATIVE [facility] Comment on above: Performed By: #### U AMIC #### [facility] [address] [address] [address] Donis Mancini Clarity (U) CLEAR Normal CLEAR The [facility] Comment on above: Performed By: #### U AMIC #### [facility] [address] [address] [address] Donis Mancini Color (U) LT. YELLOW Normal YELLOW The [facility] Comment on above: Performed By: #### U AMIC #### [facility] [address] [address] [address] Donis Mancini Glucose Ql (U) Negative Normal NEGATIVE [facility] Comment on above: Performed By: #### U AMIC #### [facility] [address] [address] [address] Donis Mancini Hemoglobin Ql (U) Negative Normal NEGATIVE [facility] Comment on above: Performed By: #### U AMIC #### [facility] [address] [address] [address] Donis Mancini Ketones Ql (U) Negative Normal NEGATIVE [facility] Comment on above: Performed By: #### U AMIC #### [facility] [address] [address] [address] Donis Mancini LEUKOCYTES Negative Normal NEGATIVE [facility] Comment on above: Performed By: #### U AMIC #### [facility] [address] [address] [address] Donis Mancini Nitrite Ql (U) Negative Normal NEGATIVE [facility] Comment on above: Performed By: #### U AMIC #### [facility] [address] [address] [address] Donis Mancini pH (U) 7.0 [pH] Normal 5-9 The [facility] Comment on above: Performed By: #### U AMIC #### [facility] [address] [place] [address] Dr. Donis Mancini SPEC GRAVITY <=1.005 Abnormal 1.005-<=1.025 [facility] Comment on above: Performed By: #### U AMIC #### [facility] [address] [address] [address] Donis Mancini UA PROTEIN Negative Normal NEGATIVE/ TRACE The [facility] Comment on above: Performed By: #### U AMIC #### [facility] [address] [address] [address] Donis Mancini UR MICRO IND NOT INDICATED Normal [facility] Comment on above: Performed By: #### U AMIC #### [facility] [address] [address] [address] Donis Mancini Urobilinogen Qn (U) 0.2 {Sarah'U}/dL Normal 0.2 - 1. 0 The [facility] Comment on above: Performed By: #### U AMIC #### [facility] [address] [address] [address] Donis Mancini URIC ACID SERUMon 08-07-2022 Urate [Mass/Vol] 3.8 mg/dL Normal 2.6-6.0 [facility] Comment on above: Performed By: #### C MP, URIC, LDH ####[facility] [address] [place] [address]Dr. Donis Mancini URINE T PROTEIN CREAT RATIOo n 08-07-2022 UR TOTAL PROTEIN <6.0 Normal <=12.0 [facility] Comment on above: Performed By: #### C T/NGNA #### [facility] [address] [address] [address] Donis Mancini URINE CREAT 13.45 mg/dL Critically low 20.00-300.00 [facility] Comment on above: Performed By: #### C T/NGNA #### [facility] [address] [address] [address] Donis Mancini US PREG BIOPHY W NON STRESSo n 08-01-2022 US PREG BIOPHY W NON STRESS EXAMINATION: US PREG BIOPHY W NON STRESS HISTORY: Gestational diabetes mellitus COMPARISON: No relevant comparison available. TECHNIQUE: Ultrasound biophysical profile was performed in the radiology department. FINDINGS: BREATHING MOVEMENTS: 2.0 GROSS BODY MOVEMENTS: 2.0 TONE: 2.0 QUALITATIVE AMNIOTIC FLUID VOLUME: 2.0 PRESENTATION: Cephalic HEART RATE: 145.9 bpm H.B./min AMNIOTIC FLUID VOLUME: 14.8 cm cm GESTATIONAL AGE: 37 weeks 1 days CONCLUSION: Total biophysical profile score: 8.0 Electronically authenticated by: COCO STERN Date: 2022-08-01 08:31 Normal The [facility] CHLAMYDIA/GONOCOCCUS INESSA (SW AB/URINE/PAPon 07-31-2022 Chlamydia trachomatis, INESSA Negative Normal Negative The [facility] Comment on above: Performed By: #### C T/NGNA #### [facility] [address] [place] [address] Dr. Donis Mancini Neisseria gonorrhoeae, INESSA Negative Normal Negative [facility] Comment on above: Performed By: #### C T/NGNA #### [facility] [address] [place] [address] Dr. Donis Mancini VAGINITIS/VAGINOSIS DNA PROB Domenic 07-31-2022 Mariam species Negative Normal Negative [facility] Comment on above: Performed By: #### V AGINT ####[facility] [address] [place] [address]Dr. Donis Mancini Gardnerella vaginalis Negative Normal Negative The [facility] Comment on above: Performed By: #### V AGINT ####[facility] [address] [place] [address]Dr. Donis Mancini Trichomonas vaginalis Negative Normal Negative The [facility] Comment on above: Performed By: #### V AGINT ####[facility] [address] [place] [address]Dr. Donis Mancini GROUP B STREP CULTUREon S. agalactiae Ag Ql (Unsp spec) Culture Observations: NEGATIVE FOR GROUP B STREPTOCOCCUS. Normal The [facility] Comment on above: Performed By: #### G BSCX #### [facility] [address] [place] [address] Dr. Donis Mancini US PREG BIOPHY W NON STRESSo n 07-25-2022 US PREG BIOPHY W NON STRESS EXAMINATION: US PREG BIOPHY W NON STRESS HISTORY: Gestational diabetes mellitus COMPARISON: No relevant comparison available. TECHNIQUE: Ultrasound biophysical profile was performed in the radiology department. FINDINGS: BREATHING MOVEMENTS: 2.0 GROSS BODY MOVEMENTS: 2.0 TONE: 2.0 QUALITATIVE AMNIOTIC FLUID VOLUME: 2.0 PRESENTATION: Cephalic HEART RATE: 180.0 bpm H.B./min AMNIOTIC FLUID VOLUME: 18.9 cm cm GESTATIONAL AGE: 36 weeks 1 days CONCLUSION: Total biophysical profile score: 8.0 Abnormal appearance of the umbilical cord with a possible knot, short interval follow-up recommended Electronically authenticated by: COCO STERN Date: 2022-07-25 09:41 Normal The [facility] US PREG GROWTHon 07-11-2022 US PREG GROWTH EXAMINATION: US PREG GROWTH HISTORY: Gestational diabetes mellitus COMPARISON: Ultrasound anatomy single 04/12/2022 FINDINGS: Heart Rate: 166.7 bpm Number: 1.0 Position: Cephalic Amniotic Fluid Volume: 19.3 cm Maximum Vertical Pocket: 5.9 cm BIOMETRY: BPD: 8.5 cm cm; 34 weeks 3 days HC: 30.7 cmcm; 34 weeks 1 days AC: 30.3 cm cm; 34 weeks 2 days FL: 6.5 cm cm; 33 weeks 3 day EFW: 2331.5 grams; 40% FL/AC: 21.4 FL/BPD: 75.8 HC/AC: 1.0 GESTATIONAL AGE: Age by EDC: 34 weeks 1 days LYDIA by EDC: 08/20/2022 Age by US: 34 weeks 1 day LYDIA by US: 08/20/2022 IMPRESSION: 1. Single live intrauterine with growth detailed above. Electronically authenticated by: ESTEFANY BENNETT Date: 2022-07-11 19:28 Normal The [facility] Covid-19 PCR (CVDTBH)on 06-26 SARS-CoV-2 (COVID-19) RNA INESSA+probe Ql (Unsp spec) Not detected Normal NOT DETECTED The [facility] Comment on above: Result Comment: When diagnostic testing is negative, the possibility of a false negative should be considered in the context of a patient's recent exposures and the presence of clinical signs and symptoms consistent with SARS-CoV-2. This test is not yet approved or cleared by the [place] FDA. When there are no FDA-approved or cleared tests available, and other criteria are met, FDA can make tests available under an emergency access mechanism called an Emergency Use Authorization (EUA). The EUA for this test is supported by the [place] of Health and Human Service's declaration that circumstances exist to justify the emergency use of in vitro diagnostics for the detection and/or diagnosis of the virus that causes COVID-19. This EUA will remain in effect for the duration of the COVID-19 declaration justifying emergency of IVDs, unless it is terminated or revoked by the FDA (after which the test may no longer be used). Performed By: #### C T/NGNA #### [facility] [address] [place] [address] Dr. Donis Mancini GTT 3 HR PREGon 06-03-2022 Glucose [Mass/Vol] 94 mg/dL Normal 74-106 [facility] Comment on above: Performed By: #### U AMIC #### [facility] [address] [place] [address] Dr. Donis Mancini Glucose [Mass/Vol] 147 mg/dL Normal [facility] Comment on above: Performed By: #### U AMIC #### [facility] [address] [place] [address] Dr. Donis Mancini Glucose [Mass/Vol] 159 mg/dL Normal [facility] Comment on above: Performed By: #### U AMIC #### [facility] [address] [place] [address] Dr. Donis Mancini Glucose [Mass/Vol] 151 mg/dL Normal [facility] Comment on above: Performed By: #### U AMIC #### [facility] [address] [place] [address] Dr. Donis Mancini GLUCOSE - 1HRon 05-21-2022 Glucose [Mass/Vol] 141 mg/dL Critically high 74-106 [facility] Comment on above: Performed By: #### U AMIC #### [facility] [address] [place] [address] Dr. Donis Mancini HEMOGRAM AND PLATELon 2021 Hematocrit (Bld) [Volume fraction] 39.1 % Normal 36.0-48.0 [facility] Comment on above: Performed By: #### U AMIC #### [facility] [address] [address] [address] Donis Mancini Hemoglobin (Bld) [Mass/Vol] 13.1 g/dL Normal 12.0-16.0 [facility] Comment on above: Performed By: #### U AMIC #### [facility] [address] [address] [address] Donis Mancini MCH (RBC) [Entitic mass] 32.3 pg Normal 26.7-34.0 [facility] Comment on above: Performed By: #### U AMIC #### [facility] [address] [address] [address] Donis Mancini MCHC (RBC) [Mass/Vol] 33.5 g/dL Normal 29.9-35.2 The [facility] Comment on above: Performed By: #### U AMIC #### [facility] [address] [place] [address] Dr. Donis Mancini MCV (RBC) [Entitic vol] 96.5 fL Normal 81.0-99.0 The [facility] Comment on above: Performed By: #### U AMIC #### [facility] [address] [address] [address] Donis Mancini PLT 220 103/ul Normal 150-450 The [facility] Comment on above: Performed By: #### U AMIC #### [facility] [address] [place] [address] Dr. Donis Mancini RBC 4.05 106/ul Critically low 4.20-5.40 [facility] Comment on above: Performed By: #### U AMIC #### [facility] [address] [address] [address] Donis Mancini WBC 12.8 103/ul Critically high 4.0-11.0 [facility] Comment on above: Performed By: #### U AMIC #### [facility] [address] [address] [address] Donis Mancini US PREG BIOPHYSICAL NO NSTon 05-11-2022 US PREG BIOPHYSICAL NO NST EXAMINATION: US PREG BIOPHYSICAL NO NST HISTORY: Routine care COMPARISON: Ultrasound anatomy 04/12/2022 TECHNIQUE: Ultrasound biophysical profile was performed. FINDINGS: BREATHING MOVEMENTS: 2.0 GROSS BODY MOVEMENTS: 2.0 TONE: 2.0 QUALITATIVE AMNIOTIC FLUID VOLUME: 2.0 PRESENTATION: BREECH HEART RATE: 148.4 bpm bpm. AMNIOTIC FLUID VOLUME: 14.8 cm GESTATIONAL AGE: 25 weeks 3 days CONCLUSION: Total biophysical profile score 8.0. Electronically authenticated by: ESTEFANY BENNETT Date: 2022-05-11 06:25 Normal The [facility] CULTURE URINEon 05-10-2022 CULTURE URINE Culture Observations: MODERATE GROWTH OF MIXED GENITAL RAMBO. NO POTENTIAL PATHOGENS SEEN. Normal The [facility] Comment on above: Performed By: #### U RCX #### [facility] [address] [address] [address] Donis Mancini UA RANDOM W/MICROSCOPICon BACTERIA LARGE Abnormal NONE SEEN The [facility] Comment on above: Performed By: #### U AMIC ####[facility] [address] [place] [address]Dr. Donis Mancini Bilirubin Ql (U) Negative Normal NEGATIVE [facility] Comment on above: Performed By: #### U AMIC ####[facility] [address] [place] [address]DrGene Mancini CAST NONE SEEN Normal NONE SEEN [facility] Comment on above: Performed By: #### U AMIC ####[facility] [address] [place] [address]Dr. Donis Mancini Clarity (U) CLEAR Normal CLEAR The [facility] Comment on above: Performed By: #### U AMIC ####[facility] [address] [place] [id number] Mancini Color (U) YELLOW Normal YELLOW The [facility] Comment on above: Performed By: #### U AMIC ####[facility] [address] [place] [address]DrGene Mancini Crystals LM Nom (Urine sed) NONE SEEN Normal NONE SEEN The [facility] Comment on above: Performed By: #### U AMIC ####[facility] [address] [place], [place] [address]Dr. Donis Mancini Epithelial cells LM Ql (Urine sed) MODERATE Abnormal NONE SEEN /RARE The [facility] Comment on above: Performed By: #### U AMIC ####[facility] [address] [place], [place] [address]Dr. Donis Mancini Glucose Ql (U) 250 mg/dl Abnormal NEGATIVE [facility] Comment on above: Performed By: #### U AMIC ####[facility] [address] [place], [place] [address]Dr. Donis Mancini Hemoglobin Ql (U) TRACE-INTACT Abnormal NEGATIVE [facility] Comment on above: Performed By: #### U AMIC ####[facility] [address] [place], [place] [address]Dr. Donis Mancini Ketones Ql (U) Negative Normal NEGATIVE [facility] Comment on above: Performed By: #### U AMIC ####[facility] [address] [place], [place] [address]Dr. Donis Mancini LEUKOCYTES LARGE Abnormal NEGATIVE The [facility] Comment on above: Performed By: #### U AMIC ####[facility] [address] [place], [place] [address]Dr. Donis Mancini MUCOUS NONE SEEN Normal NONE SEEN The [facility] Comment on above: Performed By: #### U AMIC ####[facility] [address] [place], [place] [address]Dr. Donis Mancini Nitrite Ql (U) Negative Normal NEGATIVE [facility] Comment on above: Performed By: #### U AMIC ####[facility] [address] [place], [place] [address]Dr. Donis Mancini pH (U) 6.0 [pH] Normal 5-9 The [facility] Comment on above: Performed By: #### U AMIC ####[facility] [address] [place], [place] [address]Dr. Donis Mancini RBC 2-5 Abnormal 0-2 [facility] Comment on above: Performed By: #### U AMIC ####[facility] [address] [place], [place] [address]Dr. Donis Mancini SPEC GRAVITY <=1.005 Abnormal 1.005-<=1.025 [facility] Comment on above: Performed By: #### U AMIC ####[facility] [address] [place], [place] [address]Dr. Donis Mancini UA PROTEIN Negative Normal NEGATIVE/ TRACE The [facility] Comment on above: Performed By: #### U AMIC ####[facility] [address] [place] [address]Dr. Donis Mancini Urobilinogen Qn (U) 0.2 {Sarah'U}/dL Normal 0.2 - 1. 0 The [facility] Comment on above: Performed By: #### U AMIC ####[facility] [address] [place], [place] [address]Dr. Dnois Mancini WBC 10-20 Abnormal NONE SEEN The [facility] Comment on above: Performed By: #### U AMIC ####[facility] [address] [place], [place] [address]Dr. Donis Mancini CULTURE URINEon 04-27-2022 CULTURE URINE Culture Observations: LIGHT GROWTH OF MIXED GENITAL RAMBO. NO POTENTIAL PATHOGENS SEEN. Normal The [facility] Comment on above: Performed By: #### U RCX ####[facility] [address] [place], [place] [address]Dr. Donis Mancini UA (CLEAN/CATCH) WAD BLANKING PRESS ADJUSTER/MICRO I F IND.on 04-27-2022 Bilirubin Ql (U) Negative Normal NEGATIVE [facility] Comment on above: Performed By: #### U ACSIND UMICRO ####[facility] [address] [place], [place] [address]Dr. Donis Mancini Clarity (U) CLEAR Normal CLEAR The [facility] Comment on above: Performed By: #### U ACSWENDY UMICRO ####[facility] [address] [place], [place] [address]Dr. Donis Mancini Color (U) LT. YELLOW Normal YELLOW The [facility] Comment on above: Performed By: #### U ACSIND UMICRO ####[facility] [address] [place], [place] [address]Dr. Donis Mancini Glucose Ql (U) Negative Normal NEGATIVE [facility] Comment on above: Performed By: #### U ACSIND, UMICRO ####[facility] [address] [place] [address]Dr. Donis Mancini Hemoglobin Ql (U) Negative Normal NEGATIVE [facility] Comment on above: Performed By: #### U ACSIND, UMICRO ####[facility] [address] [place] [address]Dr. Donis Mancini Ketones Ql (U) Negative Normal NEGATIVE [facility] Comment on above: Performed By: #### U ACSIND, UMICRO ####[facility] [address] [place] [address]Dr. Donis Mancini LEUKOCYTES SMALL Abnormal NEGATIVE [facility] Comment on above: Performed By: #### U ACSIND, UMICRO ####[facility] [address] [place], [place] [address]Dr. Donis Mancini Nitrite Ql (U) Negative Normal NEGATIVE [facility] Comment on above: Performed By: #### U ACSIND, UMICRO ####[facility] [address] [place], [place] [address]Dr. Donis Mancini pH (U) 7.0 [pH] Normal 5-9 [facility] Comment on above: Performed By: #### U ACSIND, UMICRO ####[facility] [address] [place], [place] [address]Dr. Donis Mancini SPEC GRAVITY 1.015 Normal 1.005-<=1.025 [facility] Comment on above: Performed By: #### U ACSIND, UMICRO ####[facility] [address] [place] [address]Dr. Donis Mancini UA PROTEIN Negative Normal NEGATIVE/ TRACE The [facility] Comment on above: Performed By: #### U ACSIND, UMICRO ####[facility] [address] [place] [address]Dr. Donis Mancini UR MICRO IND INDICATED Normal The [facility] Comment on above: Performed By: #### U ACSIND, UMICRO ####[facility] [address] [place] [address]Dr. Donis Mancini Urobilinogen Qn (U) 0.2 {Sarah'U}/dL Normal 0.2 - 1. 0 The [facility] Comment on above: Performed By: #### U ACSWENDY, UMICRO ####[facility] [address] [place] [address]Dr. Donis Mancini URINE MICROSCOPIC ONLYon BACTERIA MODERATE Abnormal NONE SEEN The [facility] Comment on above: Performed By: #### U ACSWENDY, UMICRO ####[facility] [address] [place] [address]Dr. Donis Mancini Bacteria identified Cx Nom (U) INDICATED Normal The [facility] Comment on above: Performed By: #### U ACSWENDY, UMICRO ####[facility] [address] [place] [address]Dr. Donis Mancini CAST NONE SEEN Normal NONE SEEN The [facility] Comment on above: Performed By: #### U ACSWENDY, UMICRO ####[facility] [address] [place] [address]Dr. Donis Mancini Crystals LM Nom (Urine sed) NONE SEEN Normal NONE SEEN The [facility] Comment on above: Performed By: #### U ACSWENDY, UMICRO ####[facility] [address] [place] [address]Dr. Donis Mancini Epithelial cells LM Ql (Urine sed) MODERATE Abnormal NONE SEEN /RARE The [facility] Comment on above: Performed By: #### U ACSWENDY, UMICRO ####[facility] [address] [place] [address]Dr. Donis Mancini MUCOUS NONE SEEN Normal NONE SEEN The [facility] Comment on above: Performed By: #### U ACSWENDY, UMICRO ####[facility] [address] [place] [address]Dr. Donis Mancini RBC NONE SEEN Abnormal 0-2 The [facility] Comment on above: Performed By: #### U ACSWENDY, UMICRO ####[facility] [address] [place], [place] [address]Ge. Donis Mancini WBC 2-5 Abnormal NONE SEEN The [facility] Comment on above: Performed By: #### U DONNA DAMON ####[facility] [address] [place], [place] [address]NqGene Mancini US KIDNEYSon 04-27-2022 US KIDNEYS EXAM: US KIDNEYS HISTORY: Abdominal pain COMPARISON: None available. TECHNIQUE: Ultrasound examination of the kidneys and urinary bladder was performed. FINDINGS: RIGHT: The right kidney is normal in size. Right kidney measures 13.1 cm in length. No significant cortical thinning. Mild right pelviectasis, with mild dilatation of the right renal pelvis of 0.8 cm. No significant right calyceal dilatation. No kidney stones identified. No focal renal mass. LEFT: The left kidney is normal in size. Left kidney measures 11.8 cm in length. No significant cortical thinning. There is no hydronephrosis. No kidney stones identified. No focal renal mass. BLADDER: Prevoid bladder volume measuring 259.3 mm. No post void bladder volume obtained. IMPRESSION: Mild right pelviectasis. 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 Otherwise unremarkable exam. Electronically authenticated by: ANDREAS AN Date: 2022-04-27 17:48 Normal The [facility] CULTURE URINEon 04-16-2022 CULTURE URINE Isolate 1 Streptococcus agalactiae 50,000 cfu/ml of Isolate 2 Escherichia coli 50,000 cfu/ml of ORGANISM 1 Streptococcus agalactiae ANTIBIOTIC M.I.C RX STATUS Benzylpenicillin <=0.06 S F Ampicillin <=0.25 S F Cefotaxime <=0.12 S F Ceftriaxone <=0.12 S F Levofloxacin 0.5 S F Inducible Clindamycin Resistance Neg NEG F Erythromycin >=8 R F Clindamycin >=1 R F Linezolid <=2 S F Vancomycin 0.5 S F Tetracycline >=16 R F ORGANISM 2 Escherichia coli ANTIBIOTIC M.I.C RX STATUS Ampicillin <=2 S F Ampicillin/Sulbactam <=2 S F Piperacillin/Tazobac morris <=4 S F Cefazolin <=4 S F Ceftazidime <=1 S F Ceftriaxone <=1 S F Ertapenem <=0.5 S F Imipenem <=0.25 S F Amikacin 4 S F Gentamicin <=1 S F Tobramycin <=1 S F Ciprofloxacin <=0.25 S F Levofloxacin <=0.12 S F Nitrofurantoin <=16 S F Trimethoprim/Sulfame thoxazole <=20 S F Normal The [facility] Comment on above: Performed By: #### U RCX #### [facility] [address], [place] [address] Dr. Donis Mancini US PREG ANATOMY SINGLEon US PREG ANATOMY SINGLE EXAMINATION: US PREG ANATOMY SINGLE HISTORY: anatomy study COMPARISON: No relevant comparison available. TECHNIQUE: Transabdominal sonographic examination was performed for obstetrical and evaluation. FINDINGS: Number: 1 Heart Rate: 161.0 bpm H.B. /min Amniotic Fluid Volume: Subjectively normal Placental Location: ANTERIOR with lower margin 3.6 cm from os. Cervix Length: 4.5 cm; closed with trace amount of fluid within cervical canal. BIOMETRY: BPD: 4.6 cm 19 weeks 6 days HC: 18.2 cm 20 weeks 4 days AC: 16.1 cm 21 weeks 1 days FL: 3.6 cm 21 weeks 4 days EFW:406.9 grams; 33% FL/AC: 22.6 FL/BPD: 79.1 HC/AC: 1.1 GESTATIONAL AGE: Age by EDC: 21 weeks 3 days LYDIA by EDC: 08/20/2022 Age by current US: 20 weeks 6 days LYDIA by current US: 08/24/2022 IMPRESSION: 1. Single live intrauterine with growth detailed above. Electronically authenticated by: ESTEFANY BENNETT Date: 2022-04-12 22:22 Normal The [facility] UA RANDOM W/MICROSCOPICon BACTERIA SMALL Abnormal NONE SEEN The [facility] Comment on above: Performed By: #### U AMIC #### [facility] [address] [id number] [address] Donis Mancini Bilirubin Ql (U) Negative Normal NEGATIVE The [facility] Comment on above: Performed By: #### U AMIC #### [facility] [address], [place] [address] Dr. Donis Mancini CAST NONE SEEN Normal NONE SEEN The [facility] Comment on above: Performed By: #### U AMIC #### [facility] [address] [address] [address] Donis Mancini Clarity (U) CLEAR Normal CLEAR [facility] Comment on above: Performed By: #### U AMIC #### [facility] [address] [address] [address] Donis Mancini Color (U) LT. YELLOW Normal YELLOW The [facility] Comment on above: Performed By: #### U AMIC #### [facility] [address] [address] [address] Donis Mancini Crystals LM Nom (Urine sed) NONE SEEN Normal NONE SEEN [facility] Comment on above: Performed By: #### U AMIC #### [facility] [address] [place] [address] Dr. Donis Mancini Epithelial cells LM Ql (Urine sed) FEW Abnormal NONE SEEN /RARE The [facility] Comment on above: Performed By: #### U AMIC #### [facility] [address] [address] [address] Donis Mancini Glucose Ql (U) Negative Normal NEGATIVE The [facility] Comment on above: Performed By: #### U AMIC #### [facility] [address] [address] [address] Donis Mancini Hemoglobin Ql (U) Negative Normal NEGATIVE The [facility] Comment on above: Performed By: #### U AMIC #### [facility] [address] [address] [address] Donis Mancini Ketones Ql (U) Negative Normal NEGATIVE The [facility] Comment on above: Performed By: #### U AMIC #### [facility] [address] [address] [address] Donis Mancini LEUKOCYTES LARGE Abnormal NEGATIVE The [facility] Comment on above: Performed By: #### U AMIC #### [facility] [address] [address] [address] Donis Mancini MUCOUS NONE SEEN Normal NONE SEEN [facility] Comment on above: Performed By: #### U AMIC #### [facility] [address] [address] [address] Donis Mancini Nitrite Ql (U) Negative Normal NEGATIVE [facility] Comment on above: Performed By: #### U AMIC #### [facility] [address] [place] [address] Dr. Donis Mancini pH (U) 5.5 [pH] Normal 5-9 [facility] Comment on above: Performed By: #### U AMIC #### [facility] [address] [place] [address] Dr. Donis Mancini RBC 0-2 Normal 0-2 [facility] Comment on above: Performed By: #### U AMIC #### [facility] [address] [place] [address] Dr. Donis Mancini SPEC GRAVITY <=1.005 Abnormal 1.005-<=1.025 [facility] Comment on above: Performed By: #### U AMIC #### [facility] [address] [place] [address] Dr. Donis Mancini UA PROTEIN Negative Normal NEGATIVE/ TRACE [facility] Comment on above: Performed By: #### U AMIC #### [facility] [address] [place] [address] Dr. Donis Mancini Urobilinogen Qn (U) 0.2 {Sarah'U}/dL Normal 0.2 - 1. 0 [facility] Comment on above: Performed By: #### U AMIC #### [facility] [address] [place] [address] Dr. Donis Mancini WBC 5-10 Abnormal NONE SEEN The [facility] Comment on above: Performed By: #### U AMIC #### [facility] [address] [place] [address] Dr. Donis Mancini HEP B SURFACE ANTIGEN SCREEN on 01-23-2022 HBsAg Screen Negative Normal Negative [facility] Comment on above: Performed By: #### U AMIC #### [facility] [address] [place] [address] Dr. Donis Mancini HEPATITIS C VIRUS AB W/ REFL EX QUANTon 01-23-2022 HCV AB 0.1 s/co ratio Normal 0.0-0.9 [facility] Comment on above: Performed By: #### H CVPCRR ####[facility] [address] [address]Dr. Donis Mancini Interpretation: Comment Normal [facility] Comment on above: Result Comment: Nega tive Not infected with HCV, unless recent infection is suspected or other evidence exists to indicate HCV infection. Performed By: #### H CVPCRR ####[facility] [address] [address]DrGene Mancini HIV 1 AND 2 WITH REFLEXon HIV Screen 4th Generation wRfx Non-Reactive Normal Non Reactive [facility] Comment on above: Result Comment: HIV Negative HIV-1/HIV-2 antibodies and HIV-1 p24 antigen were NOT detected. There is no laboratory evidence of HIV infection. Performed By: #### H IV12 ####[facility] [address] [address]DrGene Mancini RPR QUANTon 01-23-2022 Rapid Plasma Reagin, Quant Non-Reactive Normal NonRea<1:1 [facility] Comment on above: Result Comment: Plea se Note: This test does not meet current guidelines for screening and diagnosis of syphilis. This test is intended for following treatment response in patients being treated for syphilis infection. To screen for syphilis infection, a reflex cascade that includes both RPR and a treponema-specific assay should be utilized, such as Treponema pallidum (Syphilis) Screening [place] (905033) or Rapid Plasma Reagin (RPR) Test With Reflex to Quantitative RPR and Confirmatory Treponema pallidum Antibodies (777395). Performed By: #### R PRQ ####[facility] [address] [id number]. Donis Mancini RUBELLA AB IGGon 01-23-2022 Rubella Antibodies, IgG 1.60 index Normal Immune >0.99 [facility] Comment on above: Result Comment: Non- immune <0.90 Equivocal 0.90 - 0.99 Immune >0.99 Performed By: #### U AMIC #### [facility] [address] [address] [address] Donis Mancini CBC AUTO DIFFon 01-22-2022 BASO # 0.1 103/ul Normal 0.0-0.1 [facility] Comment on above: Performed By: #### U AMIC #### [facility] [address] [address] [address] Donis Mancini Basophils/100 WBC (Bld) 0.5 % Normal 0.2-2.0 [facility] Comment on above: Performed By: #### U AMIC #### [facility] [address] [address] [address] Donis Mancini EO # 0.6 103/ul Normal 0.0-0.7 [facility] Comment on above: Performed By: #### U AMIC #### [facility] [address] [place] [address] Dr. Donis Mancini Eosinophils/100 WBC (Bld) 5.1 % Normal 0.9-7.0 [facility] Comment on above: Performed By: #### U AMIC #### [facility] [address] [address] [address] Donis Mancini Erythrocyte distribution width (RBC) [Ratio] 12.0 % Normal 11.0-15.0 [facility] Comment on above: Performed By: #### U AMIC #### [facility] [address] [place] [address] Dr. Donis Mancini Hematocrit (Bld) [Volume fraction] 45.8 % Normal 36.0-48.0 [facility] Comment on above: Performed By: #### U AMIC #### [facility] [address] [address] [address] Donis Mancini Hemoglobin (Bld) [Mass/Vol] 15.3 g/dL Normal 12.0-16.0 [facility] Comment on above: Performed By: #### U AMIC #### [facility] [address] [address] [address] Donis Mancini IG # 0.03 10e3/ul Normal 0.00-0.03 [facility] Comment on above: Performed By: #### U AMIC #### [facility] [address] [address] [address] Donis Mancini IG % 0.3 % Normal 0.0-0.5 [facility] Comment on above: Performed By: #### U AMIC #### [facility] [address] [address] [address] Donis Mancini LYMPH # 1.7 103/ul Normal 1.2-3.8 [facility] Comment on above: Performed By: #### U AMIC #### [facility] [address] [address] [address] Donis Mancini Lymphocytes/100 WBC (Bld) 15.9 % Critically low 20.5-60.0 [facility] Comment on above: Performed By: #### U AMIC #### [facility] [address] [address] [address] Donis Mancini MANUAL DIFF REQ NO Normal [facility] Comment on above: Performed By: #### U AMIC #### [facility] [address] [address] [address] Donis Mancini MCH (RBC) [Entitic mass] 31.5 pg Normal 26.7-34.0 [facility] Comment on above: Performed By: #### U AMIC #### [facility] [address] [address] [address] Donis Mancini MCHC (RBC) [Mass/Vol] 33.4 g/dL Normal 29.9-35.2 [facility] Comment on above: Performed By: #### U AMIC #### [facility] [address] [address] [address] Donis Mancini MCV (RBC) [Entitic vol] 94.2 fL Normal 81.0-99.0 [facility] Comment on above: Performed By: #### U AMIC #### [facility] [address] [address] [address] Donis Mancini MONO # 0.6 103/ul Normal 0.3-0.8 [facility] Comment on above: Performed By: #### U AMIC #### [facility] [address] [address] [address] Donis Mancini Monocytes/100 WBC (Bld) 5.8 % Normal 1.7-12.0 [facility] Comment on above: Performed By: #### U AMIC #### [facility] [address] [address] [address] Donis Mancini NEUT # 7.8 103/ul Critically high 1.4-6.5 [facility] Comment on above: Performed By: #### U AMIC #### [facility] [address] [address] [address] Donis Mancini Neutrophils/100 WBC (Bld) 72.4 % Normal 43.0-75.0 [facility] Comment on above: Performed By: #### U AMIC #### [facility] [address] [address] [address] Donis Mancini Platelet mean volume (Bld) [Entitic vol] 9.9 fL Normal 9.5-13.5 The [facility] Comment on above: Performed By: #### U AMIC #### [facility] [address] [address] [address] Donis Mancini PLT 281 103/ul Normal 150-450 [facility] Comment on above: Performed By: #### U AMIC #### [facility] [address] [address] [address] Donis Mancini RBC 4.86 106/ul Normal 4.20-5.40 [facility] Comment on above: Performed By: #### U AMIC #### [facility] [address] [address] [address] Donis Mancini WBC 10.8 103/ul Normal 4.0-11.0 [facility] Comment on above: Performed By: #### U AMIC #### [facility] [address] [address] [address] Donis Mancini CULTURE URINEon 01-22-2022 CULTURE URINE Culture Observations: LIGHT GROWTH OF MIXED GENITAL RAMBO. NO POTENTIAL PATHOGENS SEEN. Normal The [facility] Comment on above: Performed By: #### U RCX #### [facility] [address] [address] [address] Donis Mancini GLYCOHEMOGLOBIN A1Con 2021 ADA RECOMMENDATION SEE BELOW Normal The [facility] Comment on above: Result Comment: ADA RECOMMENDED LIMIT 4.0 - 6.0 ADA THERAPEUTIC TARGET < 7.0 ACTION SUGGESTED > 7.0 Performed By: #### A 1C ####[facility] [address] [place] [id number]. Donis Mancini Glucose [Mass/Vol] 100 mg/dL Normal [facility] Comment on above: Performed By: #### A 1C ####[facility] [address] [place] [id number]. Donis Mancini HbA1c (Bld) [Mass fraction] 5.1 % Normal 4.5-6.2 [facility] Comment on above: Performed By: #### A 1C ####[facility] [address] [place] [id number]. Donis Mancini SEAN BOX TEST PT SEND OUTo n 01-22-2022 SENT TO REF LAB 01/22/2022 Normal [facility] Comment on above: Performed By: #### N BOX ####[facility] [address] [id number]. Donis Mancini TYPE AND SCREENon 01-22-2022 TYPE AND SCREEN Negative Normal [facility] Comment on above: Performed By: #### T NS #### [facility] [address] [address] [address] Donis Mancini US PREG TVon 01-17-2022 US PREG TV EXAMINATION: US PREG TV HISTORY: Missed period COMPARISON: No relevant comparison available. FINDINGS: Transvaginal images Espino intrauterine gestation Gestational sac: 2.71 cm, 7 weeks 4 days CRL: 1.82 cm, 8 weeks 2 days Yolk sac: 0.4 cm Heart rate: 174 bpm Cervix: Closed, 3.8 cm The uterus is normal in size and contour. Anteverted, anteflexed. 0.8 x 0.6 x 0.4 cm area of triangular hypoechogenicity adjacent to the gestational sac The right ovary measures 3.6 x 2.1 x 1.8 cm. Corpus luteal cyst. The left ovary is normal in appearance measuring 1.5 x 0.9 x 1.6 cm. Clinical age: 8 weeks 6 days Clinical LYDIA: 08/20/2022 Ultrasound age: 8 weeks 2 days Ultrasound LYDIA: 08/24/2022 IMPRESSION: Viable intrauterine gestation measuring 8 weeks 2 days 0.8 cm subchorionic hematoma Electronically authenticated by: COCO STERN Date: 2022-01-17 09:34 Normal [facility] Provider Letteron 04-06-2021 Provider Letter April 06, 2021 Dear Amber, We have been trying to reach you with no success. It is important that you return our call regarding your appointment upon receiving this letter. Also, at the time of your call, please provide us with your current information. Thank you for your prompt attention to this matter. Sincerely, [employer] [address] Normal [facility] Ambulatory Clinical Summaryo n 03-10-2021 Ambulatory Clinical Summary {[id number]}CD:[id number] Normal [facility] Ambulatory Clinical Summaryo n 03-05-2021 Ambulatory Clinical Summary {[id number]}CD:[id number] Normal [facility] Gynecology Phone Visit- Tele healthon 03-05-2021 Gynecology Phone Visit- Telehealth Chief Complaint Discuss control, Would like to discuss pill form. History of Present Illness 20 y/o here on phone visit. She had been on the depo for 2 years. Last injection was in November. Negative test in the office yesterday. Has not had a period. Prior to depo, had regular periods lasting 4 days. Has never been on any other method of control. No medical conditions, hx blood clots, hx bleeding disorders. Non-smoker. Review of Systems Constitutional: No fever, No fatigue. Gynecology:No painful periods,No abnormal bleeding,No pelvic pain Neurological:No headache. Physical Exam Vitals & Measurements HT: 160 cm HT: 160.0 cm n/a. Assessment/Plan This visit was conducted via phone communications from my office due to the restrictions of the COVID-19 pandemic. No physical exam was conducted due to audio only communication with the patient located at [address] [place] [address] [place] [id number], with no one else. If it is determined that the patient should be evaluated in person, the patient will be directed to the appropriate clinic or venue. The patient or their guardian verbally consented to this visit. Phone time was 10 minutes discussing health issues with counseling and coordination of care. 1. Contraception management (Z30.9: Encounter for contraceptive management, unspecified) Discussed proper pill use: when to start, what to do with missed pills, how antibiotics affect pills, side effects and remedies, ACHES. Follow up in 1 year or with problems. 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 Medications 10/15 oral tablet, 1 tab(s), Oral, Daily, 4 refills Allergies No Known Allergies Social History Alcohol Current, 03/05/2021 Sexual Sexually active: Yes., 04/18/2019 Substance Abuse - Denies Substance Abuse, 04/18/2019 Tobacco - Denies Tobacco Use, 07/11/2020 Never (less than 100 in lifetime) Tobacco Use:. Never Smokeless Tobacco Use:., 03/05/2021 Family History Family history is negative Immunizations Vaccine Date Status meningococcal conjugate vaccine 05/15/2019 Given meningococcal conjugate vaccine 12/25/2014 Recorded varicella virus vaccine 12/25/2014 Recorded diphtheria/pertussis , acel/tetanus adult 05/01/2014 Recorded measles/mumps/rubell a virus vaccine 06/01/2006 Recorded poliovirus vaccine, inactivated 06/01/2006 Recorded diphtheria/pertussis , acel/tetanus ped 06/01/2006 Recorded diphtheria/pertussis , acel/tetanus ped 05/19/2005 Recorded varicella virus vaccine 06/12/2004 Recorded measles/mumps/rubell a virus vaccine 06/12/2004 Recorded poliovirus vaccine, inactivated 06/12/2004 Recorded haemophilus b conjugate (HbOC) vaccine 06/12/2004 Recorded diphtheria/pertussis , acel/tetanus ped 12/11/2003 Recorded influenza virus vaccine, inactivated 08/28/2003 Recorded influenza virus vaccine, inactivated 07/26/2003 Recorded pneumococcal 13-valent vaccine 2001 Recorded hepatitis B adult vaccine 2001 Recorded poliovirus vaccine, inactivated 2001 Recorded haemophilus b conjugate (HbOC) vaccine 2001 Recorded diphtheria/pertussis , acel/tetanus ped 2001 Recorded pneumococcal 13-valent vaccine 2001 Recorded hepatitis B adult vaccine 2001 Recorded poliovirus vaccine, inactivated 2001 Recorded haemophilus b conjugate (HbOC) vaccine 2001 Recorded diphtheria/pertussis , acel/tetanus ped 2001 Recorded hepatitis B adult vaccine 2001 Recorded [facility] Comment on above: Result Comment: Elec tronically Signed By: ISABEL JACOBS, Joycelyn\.br\Date and Time Signed: 03/05/21 16:35 EDT Ambulatory Clinical Summaryo n 03-04-2021 Ambulatory Clinical Summary {[id number]}CD:[id number] [facility] Coding Summary.on 12-18-2020 Coding Summary. CODING DATE: 12/18/2020 [facility] DSC STATUS: Home (Routine DC) PAYOR: R[place] ADMIT DX: REASON FOR VISIT DX: U07.1 COVID-19 FINAL DX: PRINCIPAL: U07.1 COVID-19 SECONDARY: R68.89 Other general symptoms and signs PYMT PROC APC STAT DESCRIPTION DOCTOR NAME DATE NOTE: The code number assigned matches the documented diagnosis and / or procedure in the patient's chart. However, the narrative phrase printed from the coding software may appear abbreviated, or result in slightly different terminology. Coded By: Lou Galvan CphT Date Saved: 12/18/2020 12:44 pm [facility] Physician Orderon 12-16-2020 Physician Order [id number] #[id number]:127 [facility] Rapid COVID Antigen ([facility])on 12-16-2020 Rapid COV Int NEG Ctl Pass Normal [facility] Comment on above: Performed By: #### 2 [id number] #### [facility] [address] [place] [address] Rapid COV Int POS Ctl Pass Normal [facility] Comment on above: Performed By: #### 2 [id number] #### [facility] [address] [place] [address] SARS-CoV-2 (COVID-19) RNA INESSA+probe Ql (Unsp spec) Detected Abnormal Not Detected [facility] Comment on above: Result Comment: Left a message for callback. 12/16/2020 11:42:47 EDT Results faxed to infection control. The [employer]? System for Rapid Detection of SARS-CoV-2 is a chromatographic digital immunoassay intended for the direct and qualitative detection of SARS-CoV-2 nucleocapsid antigens in nasal swabs from individuals who are suspected of COVID-19 by their healthcare provider within the first five days of the onset of symptoms. Negative results should be treated as presumptive, do not rule out SARS-CoV-2 infection and should not be used as the sole basis for treatment or patient management decisions, including infection control decisions. Negative results should be considered in the context of a patient?s recent exposures, history and the presence of clinical signs and symptoms consistent with COVID-19, and confirmed with a molecular assay, if necessary, for patient management. For in vitro diagnostic use. In the [place], only for use under an Emergency Use Authorization. In the [place], this test has not been FDA cleared or approved; this test has been authorized by FDA under an EUA for use by authorized laboratories; use by laboratories certified under the CLIA, 42 U.S.C. ?263a, that meet requirements to perform moderate, high, or waived complexity tests and at the Point of Care (POC), i.e., in patient care settings operating under a CLIA Certificate of Waiver, Certificate of Compliance, or Certificate of Accreditation. This test has been authorized only for the detection of proteins from SARS-CoV-2, not for any other viruses or pathogens; and, in the [place], this test is only authorized for the duration of the declaration that circumstances exist justifying the authorization of emergency use of in vitro diagnostics for detection and/or diagnosis of the virus that causes COVID-19 under Section 564(b)(1) of the Act, 21 U.S.C. ? 360bbb-3(b)(1), unless the authorization is terminated or revoked sooner. Performed By: #### 2 [id number] #### [facility] [address] [place] [address] Employed in Healthcare Unknown Normal [facility] Comment on above: Performed By: #### 2 [id number] #### [facility] [address] [place] [address] First Test Unknown Normal [facility] Comment on above: Performed By: #### 2 [id number] #### [facility] [address] [place] [address] Hospitalized? NO Normal [facility] Comment on above: Performed By: #### 2 [id number] #### [facility] [address] [place] [address] ICU NO Normal [facility] Comment on above: Performed By: #### 2 [id number] #### [facility] [address] [place] [address] ? Unknown Normal [facility] Comment on above: Performed By: #### 2 [id number] #### [facility] [address] [place] [address] Resides in a Congregate Care Setting Unknown Normal [facility] Comment on above: Performed By: #### 2 [id number] #### [facility] [address] [place] [address] Symptomatic as defined by CDC YES Normal [facility] Comment on above: Performed By: #### 2 [id number] #### [facility] [address] [place] [address] Ambulatory Clinical Summaryo n 11-25-2020 Ambulatory Clinical Summary {[id number] [facility] Vital Signs Date Time Vital Sign Value Performing Clinician Facility 06-29-2024 09:12-0400 Body mass index (BMI) [Ratio] 24.58 kg/m2 [facility] [facility] 09:12-0400 [facility] 06-29-2024 09:12-0400 Diastolic blood pressure 72 mm[Hg] [facility] 06-29-2024 09:12-0400 Systolic blood pressure 122 mm[Hg] [facility] 12-26-2022 13:45-0400 Body height 160.02 cm Jennifer Betzaida Other [facility] Other 12-26-2022 13:45-0400 Body mass index (BMI) [Ratio] 27.45 kg/m2 Jennifer Betzaida Other [facility] Other 12-26-2022 13:45-0400 Body temperature 97 [degF] Jennifer Dudleymond Other [facility] Other 12-26-2022 13:45-0400 Body weight 70.31 kg Jennifer Dudleymond Other [facility] Other 12-26-2022 13:45-0400 Diastolic blood pressure 89 mm[Hg] Jennifer Betzaida Other [facility] Other 12-26-2022 13:45-0400 Respiratory rate 18 /min Jennifer Betzaida Other [facility] Other 12-26-2022 13:45-0400 SaO2% (BldA) [Mass fraction] 100 % Jennifer Betzaida Other [facility] Other 12-26-2022 13:45-0400 Systolic blood pressure 135 mm[Hg] Jennifer Huston Other [employer] [employer] Other Encounters Encounter Date Encounter Type Care Provider Facility Start: 06-29-2024 End: 06-29-2024 Office outpatient visit 5 minutes [facility] Michael Nurse [facility] Comment on above: GA: 7w1d Start: 06-29-2024 End: 06-29-2024 ambulatory Not Available Start: 12-26-2022 Office outpatient ne w 20 minutes Jennifer Huston [facility] Start: 12-26-2022 End: 12-26-2022 ambulatory Jennifer Betzaida [facility] [employer] Other Start: 12-26-2022 End: 12-26-2022 Patient encounter procedure 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 Facility: Start: 08-16-2022 End: 08-16-[address] DOCTOR ATWOOD Facility: Start: 08-10-2022 End: 08-12-2022 Evaluation and management of inpatient DR DOCTOR ATWOOD Facility: Start: 08-07-2022 End: 08-07-[address] DOCTOR ATWOOD Facility: Start: 07-31-2022 End: 07-31-[address] MACKENZIE RODRIGUEZ . Facility:[facility]1 Start: 07-29-2022 End: 07-29-[address] MACKENZIE RODRIGUEZ . Facility:[facility] Start: 07-24-2022 End: 07-24-[address] MACKENZIE RODRIGUEZ . Facility:[facility] Start: 07-10-2022 End: 07-11-[address] MACKENZIE RODRIGUEZ . Facility: Start: 07-06-2022 End: 07-06-[address] DOCTOR ATWOOD Facility:[facility] Start: 06-14-2022 End: 06-15-[address] MACKENZIE RODRIGUEZ . Facility:[facility] Start: 06-03-2022 End: 06-04-[address] MACKENZIE RODRIGUEZ . Facility: Start: 05-21-2022 End: 05-22-[address] MACKENZIE RODRIGUEZ . Facility: Start: 05-10-2022 End: 05-10-[address] MACKENZIE RODRIGUEZ . Facility: Start: 05-10-2022 End: 05-10-[address] DOCTOR ATWOOD Facility:[facility] Start: 05-03-[address] MACKENZIE RODRIGUEZ . Facili ty:[facility]1 Start: 04-27-2022 End: 04-27-[address] MACKENZIE RODRIGUEZ . Facility: Start: 04-12-2022 End: 04-12-[address] MACKENZIE RODRIGUEZ . Facility: Start: 04-12-2022 End: 04-13-[address] MACKENZIE RODRIGUEZ . Facility: Start: 03-26-2022 End: 03-27-[address] MACKENZIE RODRIGUEZ . Facility: Start: 01-22-2022 End: 01-23-[address] MACKENZIE RODRIGUEZ . Facility: Start: 01-14-2022 End: 01-15-[address] MACKENZIE RODRIGUEZ . 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 Start: 08-10-2022 Division of Female Perineum, External Approach DR MACKENZIE RODRIGUEZ . Start: 08-10-2022 Drainage of Amniotic Fluid, Therapeutic from Products of Conception, Via Natural or Artificial Opening DR MACKENZIE RODRIGUEZ . Start: 08-10-2022 Introduction of Othe r Hormone into Peripheral Vein, Percutaneous Approach DR MACKENZIE RODRIGUEZ . Plan of Treatment Date Care Activity Detail Author Start: 08-06-2024 End: 08-06-2024 Patient encounter procedure 08/06/2024 9:10 AM EST Routine [facility] [address] [place] [id number] Mackenzie Rodriguez, DO [address] [place] [address] [facility] Start: 06-29-2024 End: 06-29-2025 ABO/Rh ABO/Rh Lab Routine Missed menses , unspecified gestational age Expected: 06/29/2024 (Approximate), Expires: 06/29/2025 [facility] Comment on above: Expected: 06/29/2024 (Approximate), Expires: 06/29/2025 Start: 06-29-2024 End: 06-29-2025 Blood type and Indirect antibody screen panel - Blood Type and screen Lab Routine Missed menses , unspecified gestational age Expected: 06/29/2024 (Approximate), Expires: 06/29/2025 [facility] Work Phone: Comment on above: Expected: 06/29/2024 (Approximate), Expires: 06/29/2025 Start: 06-29-2024 End: 06-29-2025 Drugs of abuse panel - Urine by Screen method Rapid drug screen, urine Lab Routine , unspecified gestational age Encounter for supervision of normal first in first trimester Expected: 06/29/2024 (Approximate), Expires: 06/29/2025 [facility] Healthcare Comment on above: Expected: 06/29/2024 (Approximate), Expires: 06/29/2025 Start: 06-29-2024 End: 06-29-2025 US Pelvis transvaginal US OB transvaginal Imaging Routine Missed menses Expected: 06/29/2024 (Approximate), Expires: 06/29/2025 [facility] Comment on above: Expected: 06/29/2024 (Approximate), Expires: 06/29/2025 Start: 05-27-2024 Influenza vaccination Influenza Vacc ine (#1) [facility] Bacteria identified in Urine by Culture Urine culture Microbiology Routine Missed menses Ordered: 06/29/2024 [facility] Comment on above: Ordered: 06/29/2024 CBC W Auto Different ial panel - Blood CBC and differential Lab Routine Missed menses , unspecified gestational age Ordered: 06/29/2024 [facility] Comment on above: Ordered: 06/29/2024 Hemoglobin A1c/Hemoglobin.total in Blood Hemoglobin A1c Lab Routine Missed menses , unspecified gestational age Ordered: 06/29/2024 [facility] Comment on above: Ordered: 06/29/2024 Hepatitis B virus surface Ag [Presence] in Serum or Plasma by Immunoassay Hepatitis B surface antigen Lab Routine Missed menses , unspecified gestational age Ordered: 06/29/2024 [facility] Comment on above: Ordered: 06/29/2024 Hepatitis C virus Ab [Presence] in Serum or Plasma by Immunoassay Hepatitis C antibody Lab Routine Missed menses , unspecified gestational age Ordered: 06/29/2024 [facility] Comment on above: Ordered: 06/29/2024 HIV-1/HIV-2 antigen/antibody combination immunoassay HIV-1 and HIV-2 antibodies Lab Routine Missed menses , unspecified gestational age Ordered: 06/29/2024 [facility] Comment on above: Ordered: 06/29/2024 Reagin Ab [Presence] in Serum by RPR RPR Lab Routine Missed menses , unspecified gestational age Ordered: 06/29/2024 [facility] Comment on above: Ordered: 06/29/2024 Rubella antibody, IgG Rubella an tibody, IgG Lab Routine Missed menses , unspecified gestational age Ordered: 06/29/2024 [facility] Comment on above: Ordered: 06/29/2024 Immunizations Immunization Date Immunization Notes Care Provider Ryne abrams 08-28-2002 influenza virus vacc ine, unspecified formulation [facility] Payers Date Payer Category Payer Medicaid [employer] [employer] [id number] 2023-Present [address] [place] [address] [id number] 2021 Unknown BCBS BCBS xxxxxx [id number] 2021-Present [phone] [address] [place] [address] [id number] 2001 Unknown [id number] 2.16.840.1.914411.3.579.2.593 2001 Unknown [id number] 2.16.840.1.414797.3.579.2.593 2001 Unknown [id number] 2.16.840.1.611408.3.579.2.593 2001 Unknown [id number] 2.16.840.1.475045.3.579.2.593 2001 Unknown [id number] 2.16.840.1.464807.3.579.2.593 2001 Unknown [id number] 2.16.840.1.455361.3.579.2.593 2001 Unknown [id number] 2.16.840.1.189269.3.579.2.593 2001 Unknown [id number] 2.16.840.1.883801.3.579.2.593 2001 Unknown [id number] 2.16.840.1.084459.3.579.2.593 2001 Unknown [id number] 2.16.840.1.739138.3.579.2.593 2001 Unknown [id number] 2.16.840.1.164102.3.579.2.593 2001 Unknown [id number] 2.16.840.1.523342.3.579.2.593 2001 Unknown [id number] 2.16.840.1.129048.3.579.2.593 2001 Unknown [id number] 2.16.840.1.181828.3.579.2.593 2001 Unknown [id number] 2.16.840.1.461668.3.579.2.593 2001 Unknown [id number] 2.16.840.1.439072.3.579.2.593 2001 Unknown [id number] 2.16.840.1.852619.3.579.2.593 2001 Unknown [id number] 2.16.840.1.584974.3.579.2.593 2001 Unknown [id number] 2.16.840.1.088593.3.579.2.593 2001 Unknown [id number] 2.16.840.1.704583.3.579.2.593 2001 Unknown [id number] 2.16.840.1.195011.3.579.2.593 2001 Unknown [id number] 2.16.840.1.875970.3.579.2.1259 1959 Self-pay 1959 Unknown [id number] 1959 Unknown [id number] Unknown [id number] 2.16.840.1.226818.3.579.2.593 Unknown [id number] 2.16.840.1.346927.3.579.2.531 Social History Date Type Detail Facility Start: 10-13-2023 Sex Assigned At N [facility] [employer] Other Start: 2001 Sex Assigned At Female F [facility] Start: 10-13-2023 [facility] Start: 06-29-2024 Alcoholic beverage intake Current drinker of alcohol (finding) [facility] Start: 10-13-2023 History of Social function [facility] Start: 05-24-2024 [facility] Start: 2001 Sex assigned at Not on file [facility] History of Present illness Narrative 06-29-2024 Whitney Peacock - 06/29/2024 9:00 AM EDT Note Date & Type Note Facility 06-29-2024 History of Presen t illness Narrative Reason for Appointment: Patient ID: Amber Funes is a 24 y.o. female who presents for Initial Visit Patient presents today for a Nurse OB Intake appointment. Patient is 7w1d with a Estimated Date of Delivery: 02/14/25 OB History Para Term AB Living 2 1 1 SAB IAB Ectopic Multiple Live Births # Outcome Date GA Lbr Paul/2nd Weight Sex Type Anes PTL Lv 2 Current 1 Para Current Medications: has a current medication list which includes the following prescription(s): ondansetron. Medical History: Active Ambulatory Problems Diagnosis Date Noted No Active Ambulatory Problems Resolved Ambulatory Problems Diagnosis Date Noted No Resolved Ambulatory Problems Past Medical History: Diagnosis Date Anemia Gestational diabetes History of blood transfusion Lead poisoning Nonsmoker Post depression ([facility]) Family History Problem Relation Name Age of Onset Rheum arthritis Father No Known Problems Sister No Known Problems Brother Social History Tobacco Use Smoking status: Never Smokeless tobacco: Not on file Substance Use Topics Alcohol use: Yes Drug use: Never Past Surgical History: Procedure Laterality Date ADENOIDECTOMY 03/30/2006 INNER EAR SURGERY Ear tubes MYRINGOPLASTY W/ FAT GRAFT Right 01/20/2012 No Known Allergies Vitals: Estimated body mass index is 24.58 kg/m as calculated from the following: Height as of 01/06/23: 5' 3 . Weight as of this encounter: 138 lb 12 oz. BP: 122/72 Patient's last menstrual period was 05/02/2024. Assessment/Plan Diagnoses and all orders for this visit: Missed menses - Type and screen; Future - ABO/Rh; Future - CBC and differential - Hemoglobin A1c - RPR - Rubella antibody, IgG - Hepatitis B surface antigen - Hepatitis C antibody - HIV-1 and HIV-2 antibodies - Urine culture - US OB transvaginal; Future - POCT , urine manually resulted - POCT urinalysis dipstick manually resulted , unspecified gestational age - Type and screen; Future - ABO/Rh; Future - CBC and differential - Hemoglobin A1c - RPR - Rubella antibody, IgG - Hepatitis B surface antigen - Hepatitis C antibody - HIV-1 and HIV-2 antibodies - Rapid drug screen, urine; Future Encounter for supervision of normal first in first trimester - Rapid drug screen, urine; Future Nausea - ondansetron (Zofran) 4 MG tablet; Take 1 tablet (4 mg) by mouth every 6 (six) hours if needed for nausea or vomiting for up to 120 doses Take 1 tablet by mouth every 6 hours as needed for nausea. 7 weeks gestation of Nurse Note: OB Intake: Patient presents today for first OB visit. Patients history has been reviewed in great detail including any potential risks. Patient signed consent forms and patient desires testing in both trimesters. Patient currently has no complaints and has been advised to drink 6-8 glasses of water a day, eat no raw or undercooked meat, and stay away from [facility]. Patient has also been advised to not change litter boxes and eat 6 small meals a day. Patient has been consulted regarding the do's and don'ts of . Patient was given labs and all questions and concerns were answered. Follow Up: Patient is to return in 4 weeks for routine OB appointment. Follow Up: Patient is to have labs drawn at directed and return to office for initial OB appointment with provider. Patient may call office as needed with any concerns or questions. Nurse Visit Completed by: Whitney Peacock documented in this encounter [facility] Evaluation note 12-26-2022 Note Date & Type Note Facility 12-26-2022 Evaluation note Encounter Date Diagnosis Assessment Notes Dec, Pain of right thumb (ICD-10 - M79.644) Dec, Closed nondisplaced fracture of distal phalanx of right thumb, initial encounter (ICD-10 - S62.524A) Dec, Other Finger fracture material was printed, Finger fracture home care material was printed Drink plenty fluids, get plenty of rest. Wear the splint at all times until seen by your orthopedic physician for recheck. Take Tylenol as needed for pain. Follow-up with your orthopedic surgeon, call tomorrow for an appointment to be seen soon as possible [facility] Other Evaluation note Note Date & Type Note Facility Evaluation note No assessment information [facility] Work Phone: Evaluation note Note Date & Type Note Facility Evaluation note Diagnosis Missed menses , unspecified gestational age Encounter for supervision of normal first in first trimester Nausea Nausea alone 7 weeks gestation of documented in this encounter [facility] Summary Purpose Family History No Family History Records FoundNo Family History Records FoundNo Family History Records FoundNo Family History Records Found Advance Directives No Advanced Directives Records FoundNo Advanced Directives Records FoundNo Advanced Directives Records FoundNo Advanced Directives Records Found Additional Source Comments INFORMATION SOURCE (unrecogn ized section and content) DATE CREATED AUTHOR 09/24/2021 Jossue [facility] DATE CREATED AUTHOR AUTHOR'S ORGANIZ ATION 12/07/2022 [facility] DATE CREATED AUTHOR AUTHOR'S ORGANIZ ATION 01/08/2023 [facility] DATE CREATED AUTHOR AUTHOR'S ORGANIZ ATION 07/01/2024 [facility] EPIC REASON FOR VISIT (unrecogniz ed section and content) Reason Comments Initial Visit Care Teams (unrecognized sec tion and content) Team Status: Inactive Member Role Status Dates Jennifer Huston , VLAD-C 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 This clinical summary was aggregated from multiple sources. Caution should be exercised in using it in the provision of clinical care. This summary normalizes information from multiple sources, and as a consequence, information in this document may materially change the coding, format and clinical context of patient data. In addition, data may be omitted in some cases. CLINICAL DECISIONS SHOULD BE BASED ON THE PRIMARY CLINICAL RECORDS. [facility]. provides no warranty or guarantee of the accuracy or completeness of information in this document.
[2024-07-21 10:53] LABS: Basophils Absolute Auto 0.1 10^3/uL (0.0-0.1); Basophils Percent Auto 0.5 % (0.2-2.0); Eosinophils Absolute Auto 0.3 10^3/uL (0.0-0.7); Eosinophils Percent Auto 2.8 % (0.9-7.0); Hematocrit 44.7 % (36.0-48.0); Hemoglobin 15.3 g/dL (12.0-16.0); Immature Granulocytes Abs Auto 0.03 10^3/uL (0.00-0.03); Immature Granulocytes Pct Auto 0.3 % (0.0-0.5); Lymphocytes Absolute Auto 1.6 10^3/uL (1.2-3.8); Lymphocytes Percent Auto 14.9 % (20.5-60.0); Mean Corpuscular HGB Conc 34.2 g/dL (29.9-35.2); Mean Corpuscular Hemoglobin 31.7 pg (26.7-34.0); Mean Corpuscular Volume 92.7 fL (81.0-99.0); Monocytes Absolute Auto 0.4 10^3/uL (0.3-0.8); Monocytes Percent Auto 3.7 % (1.7-12.0); Neutrophils Absolute Auto 8.2 10^3/uL (1.4-6.5); Neutrophils Percent Auto 77.8 % (43.0-75.0); Platelet Count 263 10^3/uL (150-450); Red Blood Count 4.82 10^6/uL (4.20-5.40); Red Cell Distribution Width 11.9 % (11.0-15.0); White Blood Count 10.6 10^3/uL (4.0-11.0)
[2024-07-21 11:06] LABS: Estimated Average Glucose 94 mg/dL; Glycohemoglobin A1C 4.9 % (4.5-6.2)
[2024-07-21 11:07] LABS: Amphetamine Screen Urine NEGATIVE (NEGATIVE); Barbiturates Screen Urine NEGATIVE (NEGATIVE); Benzodiazepines Screen Urine NEGATIVE (NEGATIVE); Buprenorphine Screen Urine NEGATIVE (NEGATIVE); Cannabinoid Screen Urine NEGATIVE (NEGATIVE); Cocaine Screen Urine NEGATIVE (NEGATIVE); Methadone Screen Urine NEGATIVE (NEGATIVE); Methamphetamines Screen Urine NEGATIVE (NEGATIVE); Opiate Screen Urine NEGATIVE (NEGATIVE); Oxycodone Screen Urine NEGATIVE (NEGATIVE); Phencyclidine Screen Urine NEGATIVE (NEGATIVE); Tricyclic Antidepressant Urine NEGATIVE (NEGATIVE)
[2024-07-22 08:14] LABS: HBsAg Screen Negative (Negative); HCV Ab Non Reactive (Non Reactive); HIV Ab/p24 Ag Screen Non Reactive (Non Reactive)
[2024-07-22 09:07] LABS: Rapid Plasma Reagin, Quant Non Reactive titer (NonRea<1:1); Rubella Antibodies, IgG 1.57 index (Immune >0.99)
[2024-07-23 08:17] LABS: BOX Test Reference Lab UNITY; BOX Test Sent Out UNITY
== END 2024-07-21 10:06 | disposition home or self-care (01) ==
PROVIDERS: PCP Nurse Practitioner Family; Visit Provider Obstetrics & Gynecology
DX: Z34.01 Encounter for supervision of normal first pregnancy, first trimester (principal); Z36.0 Encounter for antenatal screening for chromosomal anomalies; N92.6 Irregular menstruation, unspecified
CPT/HCPCS: 36415; 80307; 83036; 85025; 86592; 86762; 86803; 86850; 86900; 86901; 87086; 87340; 87389

== ENCOUNTER 2024-08-02 18:57 | Emergency (ER) | payer BC, OTHER, SELFPAY ==
[2024-08-02 19:02] VITALS: BP 129/78; PULSE 72; TEMP 36.8; O2SAT 100; BMI 24.4
--- OUTSIDE RECORDS SUMMARY | 2024-08-02 19:05 | XMS_ITS | CCD ---
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 Name Role Phone MICHAEL ., DR MANN [...] Unavailable MISC, DR DOMINIQUE Primary Care Unavailable [place], DR COCO Danielle Consulting Unavailable MICHAEL ., DR MANN Consulting Unavailable MICHAEL ., DR MANN Admitting Unavailable MICHAEL ., DR MANN Attending Unavailable MISC, DR DOMINIQUE Primary Care Unavailable MICHAEL ., DR MANN Consulting Unavailable MICHAEL ., DR MANN Admitting Unavailable MICHAEL ., DR MANN Attending Unavailable MISC, DR DOMINIQUE Primary Care Unavailable [place], DR COCO Danielle Consulting Unavailable MICHAEL ., [...] Sig (Original) ondansetron 4 mg oral tablet (2 sources) 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-3 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 Start: 06-29-2024 take 1 [...] EXPOS COVID-19] Onset: 08-25-2022 Unclassified (3 sources) OTH [facility]PCF DIS/COND COMPL ; Translations: [OTH [...] ] Onset: 05-01-2022 Episodic Unclassified (1 source) OT SPCF DIS/COND COMPL ; Translations: [OTH SPCF DIS/COND COMPL ] Onset: 04-27-2022 Urinary tract infections (5 sources) Urinary tract infection, site not specified; Translations: [UTI SITE NOT SPECIFIED] Onset: 05-10-2022 Episodic Viral infection (1 source) Viral infection, unspecified; Translations: [VIRAL INFECTION UNSPECIFIED] Onset: 07-07-2022 Episodic Results Test Name Value Interpretation Reference Range Facility ALL CBC WITH AUTO DIFFon BASOPHILS ABSOLUTE AUTO 0.1 [facility] Basophils/100 WBC (Bld) 0.5 % 0.2 - 2.0 % [facility] Eosinophils/100 WBC (Bld) 2.8 % 0.9 - 7.0 % [facility] Erythrocyte distribution width (RBC) [Ratio] 11.9 % 11.0 - 15.0 % [facility] Hematocrit (Bld) [Volume fraction] 44.7 % 36.0 - 48.0 % [facility] Hemoglobin (Bld) [Mass/Vol] 15.3 g/dL 12.0 - 16.0 g/dL [facility] IMMATURE GRANULOCYTES ABS AUTO 0.03 [facility] Immature granulocytes/100 WBC (Bld) 0.3 % 0.0 - 0.5 % [facility] Interpretation and review of laboratory results Abnormal [facility] LYMPHOCYTES ABSOLUTE AUTO 1.6 [facility] Lymphocytes/100 WBC (Bld) 14.9 % Low 20.5 - 60.0 % [facility] MCH (RBC) [Entitic mass] 31.7 pg 26.7 - 34.0 pg [facility] MCHC (RBC) [Mass/Vol] 34.2 g/dL 29.9 - 35.2 g/dL [facility] MCV (RBC) [Entitic vol] 92.7 fL 81.0 - 99.0 fL [facility] MONOCYTES ABSOLUTE AUTO 0.4 [facility] Monocytes/100 WBC (Bld) 3.7 % 1.7 - 12.0 % [facility] NEUTROPHILS ABSOLUTE AUTO 8.2 High [facility] Neutrophils/100 WBC (Bld) 77.8 % High 43.0 - 75.0 % [facility] Platelet mean volume (Bld) [Entitic vol] 10 fL 9.5 - 13.5 fL [facility] EO # 0.3 [facility] e [facility] PLT 263 [facility] e [facility] RBC 4.82 [facility] WBC 10.6 [facility] No Panel Informationon 07-21 [facility] e [facility] DRUG SCREEN RAPID (URINE )on 07-21-2024 AMPHETAMINE SCREEN URINE Negative NEGATIVE [facility] BARBITURATES SCREEN URINE Negative NEGATIVE [facility] BENZODIAZEPINES SCREEN URINE Negative NEGATIVE [facility] BUPRENORPHINE SCREEN URINE Negative NEGATIVE [facility] Comment on above: DRUG CLASS TEST SYST EM CUT-OFF CONCENTRATIONS ARE FOLLOWS: AMP (Amphetamine): 500 ng/mL BAR (Barbiturates): 200 ng/mL BZO (Benzodiazepines): 150 ng/mL BUP (Buprenorphine): 10 ng/mL ALEXA (Cocaine): 150 ng/mL mAMP (Methamphetamine): 500 ng/mL MTD (Methadone): 200 ng/mL OPI (Opiates): 100 ng/mL OXY (Oxycodone): 100 ng/mL PCP (Phencyclidine): 25 ng/mL THC (Cannabinoids): 50 ng/mL TCA (Trycyclic Antidepressants): 300 ng/mL CANNABINOID SCREEN URINE Negative NEGATIVE [facility] COCAINE SCREEN URINE Negative NEGATIVE [facility] METHADONE SCREEN URINE Negative NEGATIVE [facility] METHAMPHETAMINES SCREEN URINE Negative NEGATIVE [facility] OPIATE SCREEN URINE Negative NEGATIVE [facility] OXYCODONE SCREEN URINE Negative NEGATIVE [facility] PHENCYCLIDINE SCREEN URINE Negative NEGATIVE [facility] TRICYCLIC ANTIDEPRESSANT URINE Negative NEGATIVE [facility] REEFLEX IF POSITIVE [facility] HCG ( test) Ql (U)o n 06-29-2024 Interpretation and review of laboratory results Abnormal [facility] Preg Test, Ur Positive [facility] Urinalysis macro (dipstick) panel (U)on 06-29-2024 Bilirubin, UA Negative Negative - 4(70) +++ mg/dL [facility] Blood, UA Negative Negative - 50 Jason/mcL [facility] Clarity, UA Clear [facility] re Color, UA Yellow [facility] Glucose, UA Negative Negative - 1999(110) ++++ mg/dL [facility] Interpretation and review of laboratory results Normal [facility] Ketones, UA Negative Negative - 160(16) ++++ mg/dL [facility] Leukocytes, UA Negative Negative - 500+++ Carlos/mcL [facility] Nitrite, UA Negative Negative - Positive [facility] pH, UA 7.0 5 - 9 [facility] Protein, UA Negative Negative - 1999(20) ++++ mg/dL [facility] Spec Grav, UA 1.015 1 - 1.03 [facility] Urobilinogen, UA 0.2 0.2 - 12 mg/dL [facility] XR hand RT min 3V*on 023 XR hand RT min 3V* [facility] Main [place] [id number] XRay Report Signed Patient: Amber Funes MR#: [id number] 18 : 2000 Acct:[id number] Age/Sex: 22 / F ADM Date: 12/26/22 Loc: XDUCLY Room: Type: [facility] Attending Dr: Jennifer GIL Copies to: JEFFERY [...] THUMB. Impression dictated by: Bulmaro Arias Jr., Bahman12/26/2022 1:44 PM Dictation Location: [facility]--15 Transcribed By: [facility] 12/26/22 1344 Dictated By: Bulmaro Arias Jr, DO 12/26/22 1343 Signed By: 12/26/22 1344 [facility] XR hand RT min 3V* [facility] [employer] Other XR hand RT min 3V* [facility] [employer] Other XR hand RT min 3V* [address] [facility] [employer] Other XR hand RT min 3V* [place] [address] [facility] [employer] Other XR hand RT min 3V* XRay Report [facility] [employer] Other XR hand RT min 3V* Signed [employer] Other XR hand RT min 3V* Patient: Amber Funes MR#: [id number] [employer] Other XR hand RT min 3V* 18 [employer] Other XR hand RT min 3V* : 2000 Acct:[id number] [employer] Other XR hand RT min 3V* Age/Sex: 22 / F ADM Date: 12/26/22 [employer] Other XR hand RT min 3V* Loc: XDUCLY [facility] [employer] Other XR hand RT min 3V* Attending Dr: Jennifer GIL [employer] Other XR hand RT min 3V* Copies to: JEFFERY Rodriguez [employer] Other XR hand RT min 3V* Ordering Provider: JEFFERY Rodriguez [employer] Other XR hand RT min 3V* Date of Service: 12/26/22 [employer] Other XR hand RT min 3V* XR/XR hand RT min 3V*: RIGHT HAND INJURY [employer] Other XR hand RT min 3V* RIGHT HAND - 4 views [employer] Other XR hand RT min 3V* REASON FOR EXAM: Patient had right thumb hyperextended yesterday when trying to open the door. Now [employer] Other XR hand RT min 3V* with pain. [employer] Other XR hand RT min 3V* COMPARISON: None [employer] Other XR hand RT min 3V* FINDINGS: [employer] Other XR hand RT min 3V* No focal soft tissue abnormality. There appears to be avulsion fracture involving the base of the [employer] Other XR hand RT min 3V* distal phalanx of the thumb. Joint spaces appear maintained. No bony erosions. [employer] Other XR hand RT min 3V* XR/XR hand RT min 3V* [employer] Other XR hand RT min 3V* IMPRESSION: [employer] Other XR hand RT min 3V* AVULSION FRACTURE INVOLVING THE BASE OF THE DISTAL PHALANX OF THE THUMB. [employer] Other XR hand RT min 3V* Impression dictated by: Bulmaro Arias Jr., D.O.12/26/2022 1:44 PM [employer] Other XR hand RT min 3V* Dictation Location: [place] [address] [employer] Other XR hand RT min 3V* Transcribed By: PWS 12/26/22 [facility] [employer] Other XR hand RT min 3V* Dictated By: Bulmaro Arias Jr, DO 12/26/22 [facility] [employer] Other XR hand RT min 3V* Signed By: [employer] Other XR hand RT min 3V* 12/26/[address] [place] [address] [employer] Other PAP ACOG PANEL 2: 22 to 30on 11-09-2022 . . Normal [facility] Comment on above: Performed By: #### [id number] ####[facility] [address] [place] [id number] Mancini Age Gdln ACOG Testing - Normal [facility] Comment on above: Performed By: #### 4 [id number] ####[facility] [address] [place], [place] [address]XuGene Mancini DIAGNOSIS: Comment Normal [facility] Comment on above: Result Comment: NEGA TIVE FOR INTRAEPITHELIAL LESION OR MALIGNANCY. Performed By: #### 4 [id number] ####[facility] [address] [place], [place] [address]DrGene Mancini Methodology: Comment Normal [facility] Comment on above: Result Comment: This liquid based ThinPrep(R) pap test was screened with the use of an image guided system. Performed By: #### 4 [id number] ####[facility] [address] [place], [place] [address]DrGene Mancini Note: Comment Normal [facility] Comment on above: Result Comment: The Pap smear is a screening test designed to aid in the detection of premalignant and malignant conditions of the uterine cervix. It is not a diagnostic procedure and should not be used as the sole means of detecting cervical cancer. Both false-positive and false-negative reports do occur. . Performed By: #### 4 [id number] ####[place] [address]DrGene Mancini Performed by: Comment Normal [facility] Comment on above: Result Comment: Zuleima Lin, Gamma Operator (ASCP) Performed By: #### 4 [id number] ####[facility] [address] [place], [place] [address]DrGene Mancini Reflex Criteria: Comment Normal [facility] Comment on above: Result Comment: The HPV DNA reflex criteria were not met with this specimen result therefore, no HPV testing was performed. . Performed By: #### 4 [id number] ####[facility] [address] [place], [place] [address]DrGene Mancini Specimen adequacy: Comment Normal [facility] Comment on above: Result Comment: Sati sfactory for evaluation. Endocervical and/or squamous metaplastic cells (endocervical component) are present. Performed By: #### 4 [id number] ####[facility] [address] [place], [place] [address]DrGene Mancini CBC AUTO DIFFon 08-11-2022 BASO # 0.0 103/ul Normal 0.0-0.1 [facility] Comment on above: Performed By: #### C T/NGNA #### [facility] [address] [place] [address] [address] Donis Mancini Basophils/100 WBC (Bld) 0.2 % Normal 0.2-2.0 [facility] Comment on above: Performed By: #### C T/NGNA #### [facility] [address] [place] [address] Dr. Donis Mancini EO # 0.1 103/ul Normal 0.0-0.7 [facility] Comment on above: Performed By: #### C T/NGNA #### [facility] [address] [place] [address] Dr. Donis Mancini Eosinophils/100 WBC (Bld) 0.5 % Critically low 0.9-7.0 [facility] Comment on above: Performed By: #### C T/NGNA #### [facility] [address] [place] [address] Dr. Donis Mancini Erythrocyte distribution width (RBC) [Ratio] 12.5 % Normal 11.0-15.0 [facility] Comment on above: Performed By: #### C T/NGNA #### [facility] [address] [place] [address] Dr. Donis Mancini Hematocrit (Bld) [Volume fraction] 35.9 % Critically low 36.0-48.0 [facility] Comment on above: Performed By: #### C T/NGNA #### [facility] [address] [place] [address] Dr. Donis Mancini Hemoglobin (Bld) [Mass/Vol] 12.4 g/dL Normal 12.0-16.0 [facility] Comment on above: Result Comment: michelet ent delivered Performed By: #### C T/NGNA #### [facility] [address] [place] [address] Dr. Donis Mancini IG # 0.10 10e3/ul Critically high 0.00-0.03 [facility] Comment on above: Performed By: #### C T/NGNA #### [facility] [address] [place] [address] Dr. Donis Mancini IG % 0.5 % Normal 0.0-0.5 [facility] Comment on above: Performed By: #### C T/NGNA #### [facility] [address] [place] [address] Dr. Donis Mancini LYMPH # 1.5 103/ul Normal 1.2-3.8 [facility] Comment on above: Performed By: #### C T/NGNA #### [facility] [address] [place] [address] Dr. Donis Mancini Lymphocytes/100 WBC (Bld) 7.6 % Critically low 20.5-60.0 [facility] Comment on above: Performed By: #### C T/NGNA #### [facility] [address] [place] [address] Dr. Donis Mancini MANUAL DIFF REQ NO Normal [facility] Comment on above: Performed By: #### C T/NGNA #### [facility] [address] [place] [address] Dr. Donis Mancini MCH (RBC) [Entitic mass] 32.2 pg Normal 26.7-34.0 [facility] Comment on above: Performed By: #### C T/NGNA #### [facility] [address] [place] [address] Dr. Donis Mancini MCHC (RBC) [Mass/Vol] 34.5 g/dL Normal 29.9-35.2 [facility] Comment on above: Performed By: #### C T/NGNA #### [facility] [address] [place] [address] Dr. Donis Mancini MCV (RBC) [Entitic vol] 93.2 fL Normal 81.0-99.0 [facility] Comment on above: Performed By: #### C T/NGNA #### [facility] [address] [place] [address] Dr. Donis Mancini MONO # 1.3 103/ul Critically high 0.3-0.8 [facility] Comment on above: Performed By: #### C T/NGNA #### [facility] [address] [place] [address] Dr. Donis Mancini Monocytes/100 WBC (Bld) 6.8 % Normal 1.7-12.0 [facility] Comment on above: Performed By: #### C T/NGNA #### [facility] [address] [place] [address] Dr. Donis Mancini NEUT # 16.2 103/ul Critically high 1.4-6.5 [facility] Comment on above: Performed By: #### C T/NGNA #### [facility] [address] [place] [address] Dr. Donis Mancini Neutrophils/100 WBC (Bld) 84.4 % Critically high 43.0-75.0 [facility] Comment on above: Performed By: #### C T/NGNA #### [facility] [address] [place] [address] Dr. Donis Mancini Platelet mean volume (Bld) [Entitic vol] 11.8 fL Normal 9.5-13.5 [facility] Comment on above: Performed By: #### C T/NGNA #### [facility] [address] [place] [address] Dr. Donis Mancini PLT 156 103/ul Normal 150-450 [facility] Comment on above: Performed By: #### C T/NGNA #### [facility] [address] [place] [address] Dr. Donis Mancini RBC 3.85 106/ul Critically low 4.20-5.40 [facility] Comment on above: Performed By: #### C T/NGNA #### [facility] [address] [place] [address] Dr. Donis Mancini WBC 19.2 103/ul Critically high 4.0-11.0 [facility] Comment on above: Performed By: #### C T/NGNA #### [facility] [address] [place] [address] Dr. Donis Mancini Covid-19 PCR ([facility])on 07-27 SARS-CoV-2 (COVID-19) RNA INESSA+probe Ql (Unsp spec) Not detected Normal NOT DETECTED [facility] Comment on above: Result Comment: When diagnostic [...] for this test is supported by the Kitchen Cleaner of Health and Human Service's declaration that [...] be used). Performed By: #### C VDTBH ####[facility] [address] [place], [place] [address]Dr. Donis Mancini DRUG SCREEN RAPID (URINE)on 08-10-2022 AMP Negative Normal NEGATIVE [facility] Comment on above: Performed By: #### D RUGRPD ####[facility] [address] [place], [place] [address]Dr. Donis Mancini BAR Negative Normal NEGATIVE [facility] Comment on above: Performed By: #### D RUGRPD ####[facility] [address] [place] [id number]. Donis Mancini BUP Negative Normal NEGATIVE [facility] Comment on above: Performed By: #### D RUGRPD ####[facility] [address] [place] [id number]. Donis Mancini BZO Negative Normal NEGATIVE [facility] Comment on above: Performed By: #### D RUGRPD ####[facility] [address] [place], [place] [id number]. Donis Mancini ALEXA Negative Normal NEGATIVE [facility] Comment on above: Performed By: #### D RUGRPD ####[facility] [address] [place], [place] [address]Dr. Donis Mancini CUT-OFFS SEE BELOW Normal [facility] Comment on above: Result Comment: AMP (Amphetamine): 500ng/mL, BAR (Barbituates): 200 ng/mL, BZO (Benzodiazepines): 150 ng/mL, BUP (Buprenorphine): 10 ng/mL, ALEXA (Cocaine): 150 ng/mL, mAMP (Methamphetamine): 500 ng/mL, MTD (Methadone): 200 ng/mL, OPI (Opiates): 100 ng/mL, OXY (Oxycodone): 100 ng/mL, PCP (Phencyclidine): 25 ng/mL, PPX (Propoxyphene): 300 ng/mL, THC (Cannabinoids): 50 ng/mL, TCA (Trycyclic Antidepressants): 300 ng/mL Performed By: #### D RUGRPD ####[facility] [address] [place], [place] [address]Dr. [facility] DRUG CUT HEADER DRUG CLASS TEST SYSTEM CUT-OFF CONCENTRATIONS ARE FOLLOWS: Normal [facility] Comment on above: Performed By: #### D RUGRPD ####[facility] [address] [place], [place] [address]Dr. Donis Mancini mAMP Negative Normal NEGATIVE [facility] Comment on above: Performed By: #### D RUGRPD ####[facility] [address] [place], [place] [address]Dr. Donis Mancini MTD Negative Normal NEGATIVE [facility] Comment on above: Performed By: #### D RUGRPD ####[facility] [address] [place], [place] [address]Dr. Donis Mancini OPI Negative Normal NEGATIVE [facility] Comment on above: Performed By: #### D RUGRPD ####[facility] [address] [place], [place] [address]Dr. Donis Mancini OXY Negative Normal NEGATIVE [facility] Comment on above: Performed By: #### D RUGRPD ####[facility] [address] [place], [place] [address]Dr. Donis Mancini PCP Negative Normal NEGATIVE [facility] Comment on above: Performed By: #### D RUGRPD ####[facility] [address] [place], [place] [address]Dr. Donis Mancini PPX Negative Normal NEGATIVE [facility] Comment on above: Performed By: #### D RUGRPD ####[facility] [address] [place], [place] [address]Kk. Donis Mancini TCA Negative Normal NEGATIVE [facility] Comment on above: Performed By: #### D RUGRPD ####[facility] [address] [place], [place] [address]Ft. Donis Mancini THC Negative Normal NEGATIVE [facility] Comment on above: Performed By: #### D RUGRPD ####[facility] [address] [place], [place] [address]Sb. Donis Mancini TYPE AND SCREENon 08-10-2022 TYPE AND SCREEN Negative Normal [facility] Comment on above: Performed By: #### T NS ####[facility] [address] [place] [id number]. Donis Mancini US PREG BIOPHY W NON [...] ESTEFANY BENNETT Date: 2022-08-10 07:18 Normal [facility] US PREG GROWTHon 08-10-2022 US PREG GROWTH [...] by: ESTEFANY BENNETT Date: 2022-08-10 07:16 Normal [facility] CBC AUTO DIFFon 08-09-2022 BASO # 0.0 103/ul Normal 0.0-0.1 [facility] Comment on above: Performed By: #### C BC ####[facility] [address] [place], [place] [address]DrGene Mancini Basophils/100 WBC (Bld) 0.2 % Normal 0.2-2.0 [facility] Comment on above: Performed By: #### C BC ####[facility] [address] [place], [place] [address]DrGene Mancini EO # 0.4 103/ul Normal 0.0-0.7 [facility] Comment on above: Performed By: #### C BC ####[facility] [address] [place], [place] [address]DrGene Mancini Eosinophils/100 WBC (Bld) 2.8 % Normal 0.9-7.0 [facility] Comment on above: Performed By: #### C BC ####[facility] [address] [place], [place] [address]DrGene Mancini Erythrocyte distribution width (RBC) [Ratio] 12.2 % Normal 11.0-15.0 [facility] Comment on above: Performed By: #### C BC ####[facility] [address] [place], [place] [address]DrGene Mancini Hematocrit (Bld) [Volume fraction] 41.4 % Normal 36.0-48.0 [facility] Comment on above: Performed By: #### C BC ####[facility] [address] [place], [place] [address]DrGene Mancini Hemoglobin (Bld) [Mass/Vol] 14.4 g/dL Normal 12.0-16.0 [facility] Comment on above: Performed By: #### C BC ####[facility] [address] [place] [address]DrGene Mancini IG # 0.06 10e3/ul Critically high 0.00-0.03 [facility] Comment on above: Performed By: #### C BC ####[facility] [address] [place] [address]DrGene Mancini IG % 0.5 % Normal 0.0-0.5 The [facility] Comment on above: Performed By: #### C BC ####[facility] Z[address] [place], [place] [address]DrGene Mancini LYMPH # 1.5 103/ul Normal 1.2-3.8 [facility] Comment on above: Performed By: #### C BC ####[facility] Depiplek[address] [place], [place] [address]DrGene Mancini Lymphocytes/100 WBC (Bld) 11.7 % Critically low 20.5-60.0 [facility] Comment on above: Performed By: #### C BC ####[facility] [address] [place], [place] [address]DrGene Mancini MANUAL DIFF REQ NO Normal [facility] Comment on above: Performed By: #### C BC ####[facility] Upxpuzzlys[address] [place], [place] [address]DrGene Mancini MCH (RBC) [Entitic mass] 31.9 pg Normal 26.7-34.0 [facility] Comment on above: Performed By: #### C BC ####[facility] X[address] [place], [place] [address]DrGene Mancini MCHC (RBC) [Mass/Vol] 34.8 g/dL Normal 29.9-35.2 [facility] Comment on above: Performed By: #### C BC ####[facility] [address] [place], [place] [address]DrGene Mancini MCV (RBC) [Entitic vol] 91.8 fL Normal 81.0-99.0 [facility] Comment on above: Performed By: #### C BC ####[facility] [address] [id number] Donis Mancini MONO # 1.0 103/ul Critically high 0.3-0.8 [facility] Comment on above: Performed By: #### C BC ####[facility] Z[address]qzis[address] [place], [place] [address]DrGene Donis Mancini Monocytes/100 WBC (Bld) 7.5 % Normal 1.7-12.0 [facility] Comment on above: Performed By: #### C BC ####[facility] [address] [place], [place] [address]DrGene Donis Mancini NEUT # 10.0 103/ul Critically high 1.4-6.5 [facility] Comment on above: Performed By: #### C BC ####[facility] N[address] [place], [place] [address]DrGene Donis Mancini Neutrophils/100 WBC (Bld) 77.3 % Critically high 43.0-75.0 [facility] Comment on above: Performed By: #### C BC ####[facility] Evixxrgfor[address] [place], [place] [address]DrGene Donis Live Platelet mean volume (Bld) [Entitic vol] 11.6 fL Normal 9.5-13.5 [facility] Comment on above: Performed By: #### C BC ####[facility] P[address] [place], [place] [id number]. Donis Live PLT 184 103/ul Normal 150-450 [facility] Comment on above: Performed By: #### C BC ####[facility] [address] [place], [place] [id number] Rahmanjavi Live RBC 4.51 106/ul Normal 4.20-5.40 [facility] Comment on above: Performed By: #### C BC ####[facility] Kary[address] [place], [place] [address]DrGene Mancini WBC 12.9 103/ul Critically high 4.0-11.0 [facility] Comment on above: Performed By: #### C BC ####[facility] [address] [place], [place] [address]TgDr. Donis Mancini LDHon 08-09-2022 LDH 167 U/L Normal 81-234 [facility] Comment on above: Performed By: #### C T/NGNA #### [facility] [address] [address] [address] Donis Mancini PROF 14(COMP METB)on 08-09- 022 Albumin [Mass/Vol] 2.7 g/dL Critically low 3.4-5.0 [facility] Comment on above: Performed By: #### C T/NGNA #### [facility] [address] [address] [address] Donis Mancini Albumin/Globulin [Mass ratio] 0.6 {ratio} Normal [facility] Comment on above: Performed By: #### C T/NGNA #### [facility] [address] [address] [address] Donis Mancini ALP [Catalytic activity/Vol] 176 U/L Critically high 46-116 [facility] Comment on above: Performed By: #### C T/NGNA #### [facility] [address] [address] [address] Donis Mancini ALT [Catalytic activity/Vol] 20 U/L Normal 14-59 [facility] Comment on above: Performed By: #### C T/NGNA #### [facility] [address] [address] [address] Donis Mancini Anion gap [Moles/Vol] 12.9 mmol/L Normal [facility] Comment on above: Performed By: #### C T/NGNA #### [facility] [address] [address] [address] Donis Mancini AST [Catalytic activity/Vol] 20 U/L Normal 15-37 [facility] Comment on above: Performed By: #### C T/NGNA #### [facility] [address] [address] [address] Donis Mancini Bilirubin [Mass/Vol] 0.1 mg/dL Critically low 0.2-1.0 [facility] Comment on above: Performed By: #### C T/NGNA #### [facility] [address] [place] [address] Dr. Donis Mancini Calcium [Mass/Vol] 9.1 mg/dL Normal 8.5-10.1 [facility] Comment on above: Performed By: #### C T/NGNA #### [facility] [address] [place] [address] Dr. Donis Mancini Chloride [Moles/Vol] 104 mmol/L Normal 98-107 [facility] Comment on above: Performed By: #### C T/NGNA #### [facility] [address] [place] [address] Dr. Donis Mancini CO2 [Moles/Vol] 22.9 mmol/L Normal 21.0-32.0 [facility] Comment on above: Performed By: #### C T/NGNA #### [facility] [address] [place] [address] Dr. Donis Mancini Creatinine [Mass/Vol] 0.43 mg/dL Critically low 0.55-1.02 [facility] Comment on above: Performed By: #### C T/NGNA #### [facility] [address] [place] [address] Dr. Donis Mancini EGFR-AF RUSSIAN >60 Normal >=60 [facility] Comment on above: Performed By: #### C T/NGNA #### [facility] [address] [place] [address] Dr. Donis Mancini EGFR-NON AF RUSSIAN >60 Normal >=60 [facility] Comment on above: Performed By: #### C T/NGNA #### [facility] [address] [place] [address] Dr. Donis Mancini Globulin (S) [Mass/Vol] 4.2 g/dL Normal [facility] Comment on above: Performed By: #### C T/NGNA #### [facility] [address] [place] [address] Dr. Donis Mancini Glucose [Mass/Vol] 95 mg/dL Normal 74-106 [facility] Comment on above: Performed By: #### C T/NGNA #### [facility] [address] [place] [address] Dr. Donis Mancini Potassium [Moles/Vol] 3.8 mmol/L Normal 3.5-5.1 [facility] Comment on above: Performed By: #### C T/NGNA #### [facility] [address] [place] [address] Dr. Donis Mancini Protein [Mass/Vol] 6.9 g/dL Normal 6.4-8.2 [facility] Comment on above: Performed By: #### C T/NGNA #### [facility] [address] [place] [address] Dr. Donis Mancini Sodium [Moles/Vol] 136 mmol/L Normal 136-145 [facility] Comment on above: Performed By: #### C T/NGNA #### [facility] [address] [place] [address] Dr. Donis Mancini Urea nitrogen [Mass/Vol] 10.0 mg/dL Normal 7.0-18.0 [facility] Comment on above: Performed By: #### C T/NGNA #### [facility] [address] [place] [address] Dr. Donis Mancini Urea nitrogen/Creatinine [Mass ratio] 23.3 mg/mg Normal [facility] Comment on above: Performed By: #### C T/NGNA #### [facility] [address] [place] [address] Dr. Donis Mancini URIC ACID SERUMon 08-09-2022 Urate [Mass/Vol] 3.6 mg/dL Normal 2.6-6.0 [facility] Comment on above: Performed By: #### C T/NGNA #### [facility] [address] [place] [address] Dr. Donis Mancini CBC AUTO DIFFon 08-07-2022 BASO # 0.0 103/ul Normal 0.0-0.1 [facility] Comment on above: Performed By: #### U AMIC #### [facility] [address] [address] [address] Donis Mancini Basophils/100 WBC (Bld) 0.2 % Normal 0.2-2.0 [facility] Comment on above: Performed By: #### U AMIC #### [facility] [address] [address] [address] Donis Mancini EO # 0.2 103/ul Normal 0.0-0.7 [facility] Comment on above: Performed By: #### U AMIC #### [facility] [address] [place] [address] Dr. Donis Mancini Eosinophils/100 WBC (Bld) 1.8 % Normal 0.9-7.0 [facility] Comment on above: Performed By: #### U AMIC #### [facility] [address] [place] [address] Dr. Donis Mancini Erythrocyte distribution width (RBC) [Ratio] 12.3 % Normal 11.0-15.0 [facility] Comment on above: Performed By: #### U AMIC #### [facility] [address] [place] [address] Dr. Donis Mancini Hematocrit (Bld) [Volume fraction] 45.7 % Normal 36.0-48.0 [facility] Comment on above: Performed By: #### U AMIC #### [facility] [address] [place] [address] Dr. Donis Mancini Hemoglobin (Bld) [Mass/Vol] 16.0 g/dL Normal 12.0-16.0 [facility] Comment on above: Performed By: #### U AMIC #### [facility] [address] [place] [address] Dr. Donis Mancini IG # 0.07 10e3/ul Critically high 0.00-0.03 [facility] Comment on above: Performed By: #### U AMIC #### [facility] [address] [place] [address] Dr. Donis Mancini IG % 0.5 % Normal 0.0-0.5 [facility] Comment on above: Performed By: #### U AMIC #### [facility] [address] [address] [address] Donis Mancini LYMPH # 1.5 103/ul Normal 1.2-3.8 [facility] Comment on above: Performed By: #### U AMIC #### [facility] [address] [address] [address] Donis Mancini Lymphocytes/100 WBC (Bld) 11.2 % Critically low 20.5-60.0 [facility] Comment on above: Performed By: #### U AMIC #### [facility] [address] [place] [address] Dr. Donis Mancini MANUAL DIFF REQ NO Normal [facility] Comment on above: Performed By: #### U AMIC #### [facility] [address] [place] [address] Dr. Donis Mancini MCH (RBC) [Entitic mass] 32.0 pg Normal 26.7-34.0 [facility] Comment on above: Performed By: #### U AMIC #### [facility] [address] [place] [address] Dr. Donis Mancini MCHC (RBC) [Mass/Vol] 35.0 g/dL Normal 29.9-35.2 [facility] Comment on above: Performed By: #### U AMIC #### [facility] [address] [place] [address] Dr. Donis Mancini MCV (RBC) [Entitic vol] 91.4 fL Normal 81.0-99.0 [facility] Comment on above: Performed By: #### U AMIC #### [facility] [address] [address] [address] Donis Mancini MONO # 0.9 103/ul Critically high 0.3-0.8 [facility] Comment on above: Performed By: #### U AMIC #### [facility] [address] [address] [address] Donis Mancini Monocytes/100 WBC (Bld) 6.3 % Normal 1.7-12.0 [facility] Comment on above: Performed By: #### U AMIC #### [facility] [address] [address] [address] Donis Mancini NEUT # 10.9 103/ul Critically high 1.4-6.5 [facility] Comment on above: Performed By: #### U AMIC #### [facility] [address] [address] [address] Donis Mancini Neutrophils/100 WBC (Bld) 80.0 % Critically high 43.0-75.0 [facility] Comment on above: Performed By: #### U AMIC #### [facility] [address] [address] [address] Donis Mancini Platelet mean volume (Bld) [Entitic vol] 11.5 fL Normal 9.5-13.5 [facility] Comment on above: Performed By: #### U AMIC #### [facility] [address] [address] [address] Donis Mancini PLT 182 103/ul Normal 150-450 [facility] Comment on above: Performed By: #### U AMIC #### [facility] [address] [id number] Donis Mancini RBC 5.00 106/ul Normal 4.20-5.40 [facility] Comment on above: Performed By: #### U AMIC #### [facility] [address] Donis Mancini WBC 13.6 103/ul Critically high 4.0-11.0 [facility] Comment on above: Performed By: #### U AMIC #### [facility] [address] Donis Mancini LDHon 08-07-2022 LDH 171 U/L Normal 81-234 [facility] Comment on above: Performed By: #### C MP, URIC, LDH ####[facility] [address] [place], [place] [address]YiDr. Donis Mancini PROF 14(COMP METB)on 11-12-2 022 Albumin [Mass/Vol] 2.9 g/dL Critically low 3.4-5.0 [facility] Comment on above: Performed By: #### C MP, URIC, LDH ####[facility] [address] [address]Dr. Donis Mancini Albumin/Globulin [Mass ratio] 0.6 {ratio} Normal [facility] Comment on above: Performed By: #### C MP, URIC, LDH ####[facility] [address] [place] [address]Dr. Laceyjavi Live ALP [Catalytic activity/Vol] 192 U/L Critically high 46-116 [facility] Comment on above: Performed By: #### C MP, URIC, LDH ####[facility] [address] [place], [place] [address]Dr. Donis Mancini ALT [Catalytic activity/Vol] 23 U/L Normal 14-59 [facility] Comment on above: Performed By: #### C MP, URIC, LDH ####[facility] [address] [place], [place] [address]Dr. Donis Mancini Anion gap [Moles/Vol] 14.4 mmol/L Normal [facility] Comment on above: Performed By: #### C MP, URIC, LDH ####[facility] [address] [place], [place] [address]Dr. Donis Mancini AST [Catalytic activity/Vol] 23 U/L Normal 15-37 [facility] Comment on above: Performed By: #### C MP, URIC, LDH ####[facility] [address] [address]Dr. Donis Mancini Bilirubin [Mass/Vol] 0.2 mg/dL Normal 0.2-1.0 [facility] Comment on above: Performed By: #### C MP, URIC, LDH ####[facility] [address] [place], [place] [address]Dr. Donis Mancini Calcium [Mass/Vol] 9.4 mg/dL Normal 8.5-10.1 [facility] Comment on above: Performed By: #### C MP, URIC, LDH ####[facility] [address] [place] [address]Dr. Donis Mancini Chloride [Moles/Vol] 104 mmol/L Normal 98-107 [facility] Comment on above: Performed By: #### C MP, URIC, LDH ####[facility] [address] [place] [address]Dr. Donis Mancini CO2 [Moles/Vol] 21.7 mmol/L Normal 21.0-32.0 [facility] Comment on above: Performed By: #### C MP, URIC, LDH ####[facility] [address] [address]Dr. Donis Mancini Creatinine [Mass/Vol] 0.46 mg/dL Critically low 0.55-1.02 [facility] Comment on above: Performed By: #### C MP, URIC, LDH ####[facility] [address] [place], [place] [address]Dr. Donis Mancini EGFR-AF RUSSIAN >60 Normal >=60 [facility] Comment on above: Performed By: #### C MP, URIC, LDH ####[facility] [address] [address]Dr. Donis Mancini EGFR-NON AF RUSSIAN >60 Normal >=60 [facility] Comment on above: Performed By: #### C MP, URIC, LDH ####[facility] [address] [address]Dr. Donis Mancini Globulin (S) [Mass/Vol] 4.6 g/dL Normal [facility] Comment on above: Performed By: #### C MP, URIC, LDH ####[facility] [address] [place] [address]Dr. Donis Mancini Glucose [Mass/Vol] 89 mg/dL Normal 74-106 [facility] Comment on above: Performed By: #### C MP, URIC, LDH ####[facility] [address] [place], [place] [address]Dr. Donis Mancini Potassium [Moles/Vol] 4.1 mmol/L Normal 3.5-5.1 [facility] Comment on above: Performed By: #### C MP, URIC, LDH ####[facility] [address] [address]Dr. Donis Mancini Protein [Mass/Vol] 7.5 g/dL Normal 6.4-8.2 [facility] Comment on above: Performed By: #### C MP, URIC, LDH ####[facility] [address] [address]Dr. Donis Mancini Sodium [Moles/Vol] 136 mmol/L Normal 136-145 [facility] Comment on above: Performed By: #### C MP, URIC, LDH ####[facility] [address] [place] [address]Dr. Donis Mancini Urea nitrogen [Mass/Vol] 8.0 mg/dL Normal 7.0-18.0 [facility] Comment on above: Performed By: #### C MP, URIC, LDH ####[facility] [address] [place] [address]Dr. Donis Mancini Urea nitrogen/Creatinine [Mass ratio] 17.4 mg/mg Normal [facility] Comment on above: Performed By: #### C MP, URIC, LDH ####[facility] [address] [address]DrGene Mancini PROTIMEon 08-07-2022 INR Coag (PPP) [Relative time] {INR} Normal [facility] Comment on above: Performed By: #### U AMIC #### [facility] [address] [address] [address] Donis Mancini INR GUIDELINES SEE BELOW Normal [facility] Comment on above: Result Comment: NICCI RED INR: 2.0 - 3.0 CONDITIONS NOT LISTED BELOW 2.5 - 3.5 FOR PROSTHETIC HEART VALVE REPLACEMENT 2.5 - 3.5 RECURRENT THROMBOSIS Performed By: #### U AMIC #### [facility] [address] [address] [address] Donis Mancini PT Coag (PPP) [Time] 9.8 s Normal 9.0-11.6 [facility] Comment on above: Performed By: #### U AMIC #### [facility] [address] [place] [address] Dr. Donis Mancini PTTon 08-07-2022 aPTT Coag (Bld) [Time] 28.5 s Normal 22.3-36.2 [facility] Comment on above: Performed By: #### U AMIC #### [facility] [address] [place] [address] Dr. Donis Mancini UA (CLEAN/CATCH) ASSISTANT FOREMAN/MICRO I F IND.on 08-07-2022 Bilirubin Ql (U) Negative Normal NEGATIVE [facility] Comment on above: Performed By: #### U AMIC #### [facility] [address] [place] [address] Dr. Donis Mancini Clarity (U) CLEAR Normal CLEAR [facility] Comment on above: Performed By: #### U AMIC #### [facility] [address] [place] [address] Dr. Donis Mancini Color (U) LT. YELLOW Normal YELLOW [facility] Comment on above: Performed By: #### U AMIC #### [facility] [address] [place] [address] Dr. Donis Mancini Glucose Ql (U) Negative Normal NEGATIVE [facility] Comment on above: Performed By: #### U AMIC #### [facility] [address] [place] [address] Dr. Donis Mancini Hemoglobin Ql (U) Negative Normal NEGATIVE [facility] Comment on above: Performed By: #### U AMIC #### [facility] [address] [place] [address] Dr. Donis Mancini Ketones Ql (U) Negative Normal NEGATIVE [facility] Comment on above: Performed By: #### U AMIC #### [facility] [address] [place] [address] Dr. Donis Mancini LEUKOCYTES Negative Normal NEGATIVE [facility] Comment on above: Performed By: #### U AMIC #### [facility] [address] [place] [address] Dr. Donis Mancini Nitrite Ql (U) Negative Normal NEGATIVE [facility] Comment on above: Performed By: #### U AMIC #### [facility] [address] [address] [address] Donis Mancini pH (U) 7.0 [pH] Normal 5-9 [facility] Comment on above: Performed By: #### U AMIC #### [facility] [address] [address] [address] Donis Mancini SPEC GRAVITY <=1.005 Abnormal 1.005-<=1.025 [facility] Comment on above: Performed By: #### U AMIC #### [facility] [address] [address] [address] Donis Mancini UA PROTEIN Negative Normal NEGATIVE/ TRACE [facility] Comment on above: Performed By: #### U AMIC #### [facility] [address] [address] [address] Donis Mancini UR MICRO IND NOT INDICATED Normal [facility] Comment on above: Performed By: #### U AMIC #### [facility] [address] [address] [address] Donis Mancini Urobilinogen Qn (U) 0.2 {Sarah'U}/dL Normal 0.2 - 1. 0 [facility] Comment on above: Performed By: #### U AMIC #### [facility] [address] [address] [address] Donis Mancini URIC ACID SERUMon 08-07-2022 Urate [Mass/Vol] 3.8 mg/dL Normal 2.6-6.0 [facility] Comment on above: Performed By: #### C MP, URIC, LDH ####[facility] [address] [place] [address]Dr. Donis Mancini URINE T PROTEIN CREAT RATIOo n 08-07-2022 UR TOTAL PROTEIN <6.0 Normal <=12.0 [facility] Comment on above: Performed By: #### C T/NGNA #### [facility] [address] [address] [address] Donis Mancini URINE CREAT 13.45 mg/dL Critically low 20.00-300.00 [facility] Comment on above: Performed By: #### C T/NGNA #### [facility] [address] [address] [address] Donis Mancini US PREG BIOPHY W [...] by: COCO STERN Date: 2022-08-01 08:31 Normal [facility] CHLAMYDIA/GONOCOCCUS INESSA (SW AB/URINE/PAPon 07-31-2022 Chlamydia trachomatis, INESSA Negative Normal Negative [facility] Comment on above: Performed By: #### C T/NGNA #### [facility] [address] [place] [address] Dr. Donis Mancini Neisseria gonorrhoeae, INESSA Negative Normal Negative [facility] Comment on above: Performed By: #### C T/NGNA #### [facility] [address] [address] [address] Donis Mancini VAGINITIS/VAGINOSIS DNA PROB Domenic 07-31-2022 Mariam species Negative Normal Negative [facility] Comment on above: Performed By: #### V AGINT ####[facility] [address] [address]Dr. Donis Mancini Gardnerella vaginalis Negative Normal Negative [facility] Comment on above: Performed By: #### V AGINT ####[facility] [address] [address]DrGene Mancini Trichomonas vaginalis Negative Normal Negative [facility] Comment on above: Performed By: #### V AGINT ####[facility] [address] [address]DrGene Mancini GROUP B STREP CULTUREon 11-0 2-2022 S. agalactiae Ag Ql (Unsp spec) Culture Observations: NEGATIVE FOR GROUP B STREPTOCOCCUS. Normal [facility] Comment on above: Performed By: #### G BSCX #### [facility] [address] [place] [address] Dr. Donsi Mancini US PREG BIOPHY W NON STRESSo [...] COCO STERN Date: 2022-07-25 09:41 Normal [facility] US PREG GROWTHon 07-11-2022 US PREG GROWTH [...] by: ESTEFANY BENNETT Date: 2022-07-11 19:28 Normal [facility] Covid-19 PCR (CVDTBH)on 06-26 SARS-CoV-2 (COVID-19) RNA INESSA+probe Ql (Unsp spec) Not detected Normal NOT DETECTED [facility] Comment on above: Result Comment: When diagnostic [...] for this test is supported by the Kitchen Cleaner of Health and Human Service's declaration that [...] used). Performed By: #### C T/NGNA #### [facility] [address] [place] [address] Dr. Donis Mancini GTT 3 HR PREGon 06-03-2022 Glucose [Mass/Vol] 94 mg/dL Normal 74-106 [facility] Comment on above: Performed By: #### U AMIC #### [facility] [address] [place] [address] Dr. Donis Mancini Glucose [Mass/Vol] 147 mg/dL Normal [facility] Comment on above: Performed By: #### U AMIC #### [facility] [address] [place] [address] Dr. Donis Mancini Glucose [Mass/Vol] 159 mg/dL Normal [facility] Comment on above: Performed By: #### U AMIC #### [facility] [address] [place] [address] Dr. Donis Mancini Glucose [Mass/Vol] 151 mg/dL Normal [facility] Comment on above: Performed By: #### U AMIC #### [facility] [address] [place] [address] Dr. Donis Mancini GLUCOSE - 1HRon 05-21-2022 Glucose [Mass/Vol] 141 mg/dL Critically high 74-106 T [facility] Comment on above: Performed By: #### U AMIC #### [facility] [address] [address] [address] Donis Mancini HEMOGRAM AND PLATELon 2021 Hematocrit (Bld) [Volume fraction] 39.1 % Normal 36.0-48.0 [facility] Comment on above: Performed By: #### U AMIC #### [facility] [address] [address] [address] Donis Mancini Hemoglobin (Bld) [Mass/Vol] 13.1 g/dL Normal 12.0-16.0 [facility] Comment on above: Performed By: #### U AMIC #### [facility] [address] [place] [address] Dr. Donis Mancini MCH (RBC) [Entitic mass] 32.3 pg Normal 26.7-34.0 [facility] Comment on above: Performed By: #### U AMIC #### [facility] [address] [place] [address] Dr. Donis Mancini MCHC (RBC) [Mass/Vol] 33.5 g/dL Normal 29.9-35.2 [facility] Comment on above: Performed By: #### U AMIC #### [facility] [address] [address] [address] Donis Mancini MCV (RBC) [Entitic vol] 96.5 fL Normal 81.0-99.0 [facility] Comment on above: Performed By: #### U AMIC #### [facility] [address] [address] [address] Donis Mancini PLT 220 103/ul Normal 150-450 [facility] Comment on above: Performed By: #### U AMIC #### [facility] [address] [address] [address] Donis Mancini RBC 4.05 106/ul Critically low 4.20-5.40 [facility] Comment on above: Performed By: #### U AMIC #### [facility] [address] [address] [address] Donis Mancini WBC 12.8 103/ul Critically high 4.0-11.0 [facility] Comment on above: Performed By: #### U AMIC #### [facility] [address] [address] [address] Donis Mancini US PREG BIOPHYSICAL NO [...] ESTEFANY BENNETT Date: 2022-05-11 06:25 Normal [facility] CULTURE URINEon 05-10-2022 CULTURE URINE Culture Observations: MODERATE GROWTH OF MIXED GENITAL RAMBO. NO POTENTIAL PATHOGENS SEEN. Normal [facility] Comment on above: Performed By: #### U RCX #### [facility] [address] [address] [address] Donis Mancini UA RANDOM W/MICROSCOPICon BACTERIA LARGE Abnormal NONE SEEN [facility] Comment on above: Performed By: #### U AMIC ####[facility] [address] [address]DrGene Mancini Bilirubin Ql (U) Negative Normal NEGATIVE [facility] Comment on above: Performed By: #### U AMIC ####[facility] [address] [address]DrGene Mancini CAST NONE SEEN Normal NONE SEEN [facility] Comment on above: Performed By: #### U AMIC ####[facility] [address] [address]DrGene Mancini Clarity (U) CLEAR Normal CLEAR [facility] Comment on above: Performed By: #### U AMIC ####[facility] [address] [address]Dr. Donis Mancini Color (U) YELLOW Normal YELLOW [facility] Comment on above: Performed By: #### U AMIC ####[facility] [address] [address]Dr. Donis Mancini Crystals LM Nom (Urine sed) NONE SEEN Normal NONE SEEN [facility] Comment on above: Performed By: #### U AMIC ####[facility] [address] [address]Dr. Donis Mancini Epithelial cells LM Ql (Urine sed) MODERATE Abnormal NONE SEEN /RARE [facility] Comment on above: Performed By: #### U AMIC ####[facility] [address] [place], [place] [address]Dr. Donis Mancini Glucose Ql (U) 250 mg/dl Abnormal NEGATIVE [facility] Comment on above: Performed By: #### U AMIC ####[facility] [address] [place], [place] [address]Dr. Donis Mancini Hemoglobin Ql (U) TRACE-INTACT Abnormal NEGATIVE [facility] Comment on above: Performed By: #### U AMIC ####[facility] [address] [place], [place] [address]Dr. Donis Mancini Ketones Ql (U) Negative Normal NEGATIVE [facility] Comment on above: Performed By: #### U AMIC ####[facility] Dr[address] [place], [place] [address]Dr. Donis Mancini LEUKOCYTES LARGE Abnormal NEGATIVE [facility] Comment on above: Performed By: #### U AMIC ####[facility] [address] [place], [place] [address]Dr. Donis Mancini MUCOUS NONE SEEN Normal NONE SEEN [facility] Comment on above: Performed By: #### U AMIC ####[facility] [address] [place], [place] [address]Dr. Donis Mancini Nitrite Ql (U) Negative Normal NEGATIVE [facility] Comment on above: Performed By: #### U AMIC ####[facility] [address] [address]Dr. Donis Mancini pH (U) 6.0 [pH] Normal 5-9 [facility] Comment on above: Performed By: #### U AMIC ####[facility] [address] [address]Dr. Donis Mancini RBC 2-5 Abnormal 0-2 [facility] Comment on above: Performed By: #### U AMIC ####[facility] [address] [address]Dr. Donis Mancini SPEC GRAVITY <=1.005 Abnormal 1.005-<=1.025 [facility] Comment on above: Performed By: #### U AMIC ####[facility] Wu[address] [place], [place] [address]Dr. Donis Live UA PROTEIN Negative Normal NEGATIVE/ TRACE [facility] Comment on above: Performed By: #### U AMIC ####[facility] [address] [place], [place] [address]Dr. Donis Live Urobilinogen Qn (U) 0.2 {Sarah'U}/dL Normal 0.2 - 1. 0 [facility] Comment on above: Performed By: #### U AMIC ####[facility] [address] [place], [place] [address]Dr. Donis Live WBC 10-20 Abnormal NONE SEEN [facility] Comment on above: Performed By: #### U AMIC ####[facility] [address] [place], [place] [address]Dr. Donis Live CULTURE URINEon 04-27-2022 CULTURE URINE Culture Observations: LIGHT GROWTH OF MIXED GENITAL RAMBO. NO POTENTIAL PATHOGENS SEEN. Normal [facility] Comment on above: Performed By: #### U RCX ####[facility] [address] [place], [place] [address]Dr. Donis Live UA (CLEAN/CATCH) ASSISTANT FOREMAN/MICRO I F IND.on 04-27-2022 Bilirubin Ql (U) Negative Normal NEGATIVE [facility] Comment on above: Performed By: #### U ACSIND, UMICRO ####[facility] [address] [address]Dr. Donis Mancini Clarity (U) CLEAR Normal CLEAR [facility] Comment on above: Performed By: #### U ACSWENDY, UMICRO ####[facility] [address] [address]Dr. Donis Mancini Color (U) LT. YELLOW Normal YELLOW [facility] Comment on above: Performed By: #### U ACSWENDY, UMICRO ####[facility] [address] [address]Dr. Donis Mancini Glucose Ql (U) Negative Normal NEGATIVE [facility] Comment on above: Performed By: #### U ACSWENDY UMICRO ####[facility] [address] [place], [place] [address]Dr. Donis Mancini Hemoglobin Ql (U) Negative Normal NEGATIVE [facility] Comment on above: Performed By: #### U ACSWENDY UMICRO ####[facility] [address] [place], [place] [address]Dr. Donis Mancini Ketones Ql (U) Negative Normal NEGATIVE [facility] Comment on above: Performed By: #### U ACSWENDY ICRO ####[facility] [address] [place], [place] [address]Dr. Donis Mancini LEUKOCYTES SMALL Abnormal NEGATIVE [facility] Comment on above: Performed By: #### U ACSWENDY, UMICRO ####[facility] [address] [address]Dr. Donis Mancini Nitrite Ql (U) Negative Normal NEGATIVE [facility] Comment on above: Performed By: #### U ACSWENDY UMICRO ####[facility] [address] [address]Dr. Donis Mancini pH (U) 7.0 [pH] Normal 5-9 [facility] Comment on above: Performed By: #### U ACSIND, UMICRO ####[facility] [address] [address]Dr. Donis Mancini SPEC GRAVITY 1.015 Normal 1.005-<=1.025 [facility] Comment on above: Performed By: #### U ACSIND, UMICRO ####[facility] [address] [address]Dr. Donis Mancini UA PROTEIN Negative Normal NEGATIVE/ TRACE [facility] Comment on above: Performed By: #### U ACSIND, UMICRO ####[facility] [address] [address]Dr. Donis Mancini UR MICRO IND INDICATED Normal [facility] Comment on above: Performed By: #### U ACSIND, UMICRO ####[facility] [address] [address]Dr. Donis Mancini Urobilinogen Qn (U) 0.2 {Sarah'U}/dL Normal 0.2 - 1. 0 [facility] Comment on above: Performed By: #### U ACSIND, UMICRO ####[facility] [address] [place], [place] [address]Dr. Donis Mancini URINE MICROSCOPIC ONLYon BACTERIA MODERATE Abnormal NONE SEEN [facility] Comment on above: Performed By: #### U ACSWENDY, ICRO ####[facility] [address] [place], [place] [address]Dr. Donis Mancini Bacteria identified Cx Nom (U) INDICATED Normal [facility] Comment on above: Performed By: #### U ACSWENDY, UMICRO ####[facility] [address] [address]Dr. Donis Mancini CAST NONE SEEN Normal NONE SEEN [facility] Comment on above: Performed By: #### U ACSIND, UMICRO ####[facility] [address] [address]Dr. Donis Mancini Crystals LM Nom (Urine sed) NONE SEEN Normal NONE SEEN [facility] Comment on above: Performed By: #### U ACSIND, UMICRO ####[facility] [address] [address]Dr. Donis Mancini Epithelial cells LM Ql (Urine sed) MODERATE Abnormal NONE SEEN /RARE [facility] Comment on above: Performed By: #### U ACSIND, UMICRO ####[facility] [address] [place], [place] [address]Sl. Donis Mancini MUCOUS NONE SEEN Normal NONE SEEN [facility] Comment on above: Performed By: #### U NELSON UMICRO ####[facility] [address] [place], [place] [address]Qm. Donis Mancini RBC NONE SEEN Abnormal 0-2 [facility] Comment on above: Performed By: #### U LORETTA DAMONRO ####[facility] [address] [place], [place] [address]Tx. Donis Mancini WBC 2-5 Abnormal NONE SEEN [facility] Comment on above: Performed By: #### U LORETTA DAMONRO ####[facility] [address] [place], [place] [address]Pt. Donis Mancini US KIDNEYSon 04-27-2022 US KIDNEYS EXAM: [...] ANDREAS AN Date: 2022-04-27 17:48 Normal [facility] CULTURE URINEon 04-16-2022 CULTURE URINE Isolate 1 [...] F Trimethoprim/Sulfame thoxazole <=20 S F Normal [facility] Comment on above: Performed By: #### U RCX #### [facility] [address] [place] [address] Dr. Donis Mancini US PREG ANATOMY SINGLEon [...] by: ESTEFANY BENNETT Date: 2022-04-12 22:22 Normal [facility] UA RANDOM W/MICROSCOPICon BACTERIA SMALL Abnormal NONE SEEN [facility] Comment on above: Performed By: #### U AMIC #### [facility] [address] [address] [address] Donis Mancini Bilirubin Ql (U) Negative Normal NEGATIVE [facility] Comment on above: Performed By: #### U AMIC #### [facility] [address] [address] [address] Donis Mancini CAST NONE SEEN Normal NONE SEEN [facility] Comment on above: Performed By: #### U AMIC #### [facility] [address] [address] [address] Donis Mancini Clarity (U) CLEAR Normal CLEAR [facility] Comment on above: Performed By: #### U AMIC #### [facility] [address] [place] [address] Dr. Donis Mancini Color (U) LT. YELLOW Normal YELLOW [facility] Comment on above: Performed By: #### U AMIC #### [facility] [address] [address] [address] Donis Mancini Crystals LM Nom (Urine sed) NONE SEEN Normal NONE SEEN [facility] Comment on above: Performed By: #### U AMIC #### [facility] [address] [address] [address] Donis Mancini Epithelial cells LM Ql (Urine sed) FEW Abnormal NONE SEEN /RARE [facility] Comment on above: Performed By: #### U AMIC #### [facility] [address] [address] [address] Donis Mancini Glucose Ql (U) Negative Normal NEGATIVE [facility] Comment on above: Performed By: #### U AMIC #### [facility] [address] [address] [address] Donis Mancini Hemoglobin Ql (U) Negative Normal NEGATIVE [facility] Comment on above: Performed By: #### U AMIC #### [facility] [address] [address] [address] Donis Mancini Ketones Ql (U) Negative Normal NEGATIVE [facility] Comment on above: Performed By: #### U AMIC #### [facility] [address] [address] [address] Donis Mancini LEUKOCYTES LARGE Abnormal NEGATIVE [facility] Comment on above: Performed By: #### U AMIC #### [facility] [address] [address] [address] Donis Mancini MUCOUS NONE SEEN Normal NONE SEEN [facility] Comment on above: Performed By: #### U AMIC #### [facility] [address] [address] [address] Donis Mancini Nitrite Ql (U) Negative Normal NEGATIVE [facility] Comment on above: Performed By: #### U AMIC #### [facility] [address] [place] [address] Dr. Donis Mancini pH (U) 5.5 [pH] Normal 5-9 [facility] Comment on above: Performed By: #### U AMIC #### [facility] [address] [address] [address] Donis Mancini RBC 0-2 Normal 0-2 [facility] Comment on above: Performed By: #### U AMIC #### [facility] [address] [place] [address] Dr. Donis Mancini SPEC GRAVITY <=1.005 Abnormal 1.005-<=1.025 [facility] Comment on above: Performed By: #### U AMIC #### [facility] [address] [address] [address] Donis Mancini UA PROTEIN Negative Normal NEGATIVE/ TRACE [facility] Comment on above: Performed By: #### U AMIC #### [facility] [address] [address] [address] Donis Mancini Urobilinogen Qn (U) 0.2 {Sarah'U}/dL Normal 0.2 - 1. 0 [facility] Comment on above: Performed By: #### U AMIC #### [facility] [address] [place] [address] Dr. Donis Mancini WBC 5-10 Abnormal NONE SEEN [facility] Comment on above: Performed By: #### U AMIC #### [facility] [address] [address] [address] Donis Mancini HEP B SURFACE ANTIGEN SCREEN on 01-23-2022 HBsAg Screen Negative Normal Negative [facility] Comment on above: Performed By: #### U AMIC #### [facility] [address] [address] [address] Donis Mancini HEPATITIS C VIRUS AB W/ REFL EX QUANTon 01-23-2022 HCV AB 0.1 s/co ratio Normal 0.0-0.[address] [facility] Comment on above: Performed By: #### H CVPCRR ####[facility] [address] [address]Dr. Donis Mancini Interpretation: Comment Normal [facility] Comment on above: Result Comment: Nega tive Not infected with HCV, unless recent infection is suspected or other evidence exists to indicate HCV infection. Performed By: #### H CVPCRR ####[facility] [address] [address]Dr. Donis Mancini HIV 1 AND 2 WITH REFLEXon HIV Screen 4th Generation wRfx Non-Reactive Normal Non Reactive [facility] Comment on above: Result Comment: HIV Negative HIV-1/HIV-2 antibodies and HIV-1 p24 antigen were NOT detected. There is no laboratory evidence of HIV infection. Performed By: #### H IV12 ####[facility] [address] [address]DrGene Mancini RPR QUANTon 01-23-2022 Rapid Plasma Reagin, Quant Non-Reactive Normal NonRea<1:1 [facility] Comment on above: Result Comment: Plea se Note: This test does not meet current guidelines for screening and diagnosis of syphilis. This test is intended for following treatment response in patients being treated for syphilis infection. To screen for syphilis infection, a reflex cascade that includes both RPR and a treponema-specific assay should be utilized, such as Treponema pallidum (Syphilis) Screening [place] (824694) or Rapid Plasma Reagin (RPR) Test With Reflex to Quantitative RPR and Confirmatory Treponema pallidum Antibodies (009399). Performed By: #### R PRQ ####[facility] [address] [address]Dr. Donis Mancini RUBELLA AB IGGon 01-23-2022 Rubella Antibodies, IgG 1.60 index Normal Immune >0.99 [facility] Comment on above: Result Comment: Non- immune <0.90 Equivocal 0.90 - 0.99 Immune >0.99 Performed By: #### U AMIC #### [facility] [address] [address] [address] Donis Mancini CBC AUTO DIFFon 01-22-2022 BASO # 0.1 103/ul Normal 0.0-0.1 [facility] Comment on above: Performed By: #### U AMIC #### [facility] [address] [address] [address] Donis Mancini Basophils/100 WBC (Bld) 0.5 % Normal 0.2-2.0 [facility] Comment on above: Performed By: #### U AMIC #### [facility] [address] [address] [address] Donis Mancini EO # 0.6 103/ul Normal 0.0-0.7 [facility] Comment on above: Performed By: #### U AMIC #### [facility] [facility] [address] [address] [address] Donis Mancini Eosinophils/100 WBC (Bld) 5.1 % Normal 0.9-7.0 [facility] Comment on above: Performed By: #### U AMIC #### [facility] [address] [address] [address] Donis Mancini Erythrocyte distribution width (RBC) [Ratio] 12.0 % Normal 11.0-15.0 [facility] Comment on above: Performed By: #### U AMIC #### [facility] [address] [address] [address] Donis Mancini Hematocrit (Bld) [Volume fraction] 45.8 % Normal 36.0-48.0 [facility] Comment on above: Performed By: #### U AMIC #### [facility] [address] [address] [address] Donis Mancini Hemoglobin (Bld) [Mass/Vol] 15.3 g/dL Normal 12.0-16.0 [facility] Comment on above: Performed By: #### U AMIC #### [facility] Laboratory [address] [place] [address] Dr. Donis Mancini IG # 0.03 10e3/ul Normal 0.00-0.03 [facility] Comment on above: Performed By: #### U AMIC #### [facility] [address] [place] [address] Dr. Donis Mancini IG % 0.3 % Normal 0.0-0.5 [facility] Comment on above: Performed By: #### U AMIC #### [facility] [address] [place] [address] Dr. Donis Mancini LYMPH # 1.7 103/ul Normal 1.2-3.8 [facility] Comment on above: Performed By: #### U AMIC #### [facility] [address] [place] [address] Dr. Donis Mancini Lymphocytes/100 WBC (Bld) 15.9 % Critically low 20.5-60.0 [facility] Comment on above: Performed By: #### U AMIC #### [facility] [address] [place] [address] Dr. Donis Mancini MANUAL DIFF REQ NO Normal [facility] Comment on above: Performed By: #### U AMIC #### [facility] [address] [place] [address] Dr. Donis Mancini MCH (RBC) [Entitic mass] 31.5 pg Normal 26.7-34.0 [facility] Comment on above: Performed By: #### U AMIC #### [facility] [address] [place] [address] Dr. Donis Mancini MCHC (RBC) [Mass/Vol] 33.4 g/dL Normal 29.9-35.2 [facility] Comment on above: Performed By: #### U AMIC #### [facility] [address] [address] [address] Donis Mancini MCV (RBC) [Entitic vol] 94.2 fL Normal 81.0-99.0 [facility] Comment on above: Performed By: #### U AMIC #### [facility] [address] [address] [address] Donis Mancini MONO # 0.6 103/ul Normal 0.3-0.8 [facility] Comment on above: Performed By: #### U AMIC #### [facility] [address] [address] [address] Donis Mancini Monocytes/100 WBC (Bld) 5.8 % Normal 1.7-12.0 [facility] Comment on above: Performed By: #### U AMIC #### [facility] Laboratory [address] [place] [address] Dr. Donis Mancini NEUT # 7.8 103/ul Critically high 1.4-6.5 [facility] Comment on above: Performed By: #### U AMIC #### [facility] [address] [address] [address] Donis Mancini Neutrophils/100 WBC (Bld) 72.4 % Normal 43.0-75.0 [facility] Comment on above: Performed By: #### U AMIC #### [facility] [address] [place] [address] Dr. Donis Mancini Platelet mean volume (Bld) [Entitic vol] 9.9 fL Normal 9.5-13.5 [facility] Comment on above: Performed By: #### U AMIC #### [facility] [address] [address] [address] Donis Mancini PLT 281 103/ul Normal 150-450 [facility] Comment on above: Performed By: #### U AMIC #### [facility] [address] [address] [address] Donis Mancini RBC 4.86 106/ul Normal 4.20-5.40 [facility] Comment on above: Performed By: #### U AMIC #### [facility] [address] [address] [address] Donis Mancini WBC 10.8 103/ul Normal 4.0-11.0 [facility] Comment on above: Performed By: #### U AMIC #### [facility] [address] [address] [address] Donis Mancini CULTURE URINEon 01-22-2022 CULTURE URINE Culture Observations: LIGHT GROWTH OF MIXED GENITAL RAMBO. NO POTENTIAL PATHOGENS SEEN. Normal [facility] Comment on above: Performed By: #### U RCX #### [facility] [address] [address] [address] Donis Mancini GLYCOHEMOGLOBIN A1Con 2021 ADA RECOMMENDATION SEE BELOW Normal [facility] Comment on above: Result Comment: ADA RECOMMENDED LIMIT 4.0 - 6.0 ADA THERAPEUTIC TARGET < 7.0 ACTION SUGGESTED > 7.0 Performed By: #### A 1C ####[facility] [id number] [address]DrGene Mancini Glucose [Mass/Vol] 100 mg/dL Normal [facility] Comment on above: Performed By: #### A 1C ####[facility] [address] [address]DrGene Mancini HbA1c (Bld) [Mass fraction] 5.1 % Normal 4.5-6.2 [facility] Comment on above: Performed By: #### A 1C ####[facility] [id number] [address]DrGene Mancini SEAN BOX TEST PT SEND OUTo n 01-22-2022 SENT TO REF LAB 01/22/2022 Normal [facility] Comment on above: Performed By: #### N BOX ####[facility] [address] [address]DrGene Mancini TYPE AND SCREENon 01-22-2022 TYPE AND SCREEN Negative Normal [facility] Comment on above: Performed By: #### T NS #### [facility] Laboratory [address] [place] [address] Dr. Donis Mancini US PREG TVon 01-17-2022 [...] by: COCO STERN Date: 2022-01-17 09:34 Normal [facility] Provider Letteron 04-06-2021 Provider Letter April 06, 2021 Dear Amber, We have been trying to reach you with no success. It is important that you return our call regarding your appointment upon receiving this letter. Also, at the time of your call, please provide us with your current information. Thank you for your prompt attention to this matter. Sincerely, [facility] [address] [place] [id number] Normal [facility] Ambulatory Clinical Summaryo n 03-10-2021 Ambulatory Clinical Summary {[id number]}CD:[id number] Normal [facility] Ambulatory Clinical Summaryo n 03-05-2021 Ambulatory Clinical Summary {[id number]}CD:[id number] Normal [facility] Gynecology Phone Visit- Tele healthon 03-05-2021 Gynecology [...] only communication with the patient located at [address] [place] [phone], with no one else. 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 CODING DATE: 12/18/2020 FINAL [facility] STATUS: Home (Routine DC) PAYOR: [place] ADMIT DX: REASON FOR VISIT DX: U07.1 [...] Galvan CphT Date Saved: 12/18/2020 12:44 pm Normal [facility] Physician Orderon 12-16-2020 Physician Order [id number] #[id number]:127 Normal [facility] Rapid COVID Antigen (MC)on 12-16-2020 Rapid COV Int NEG Ctl Pass Normal [facility] Comment on above: Performed By: #### 2 [id number] #### [facility] Laboratory [address] [place] [address] Rapid COV Int POS Ctl Pass Normal [facility] Comment on above: Performed By: #### 2 [id number] #### [facility] Laboratory [address] [place] [address] SARS-CoV-2 (COVID-19) RNA INESSA+probe Ql (Unsp spec) Detected Abnormal Not Detected [facility] Comment on above: Result Comment: Left a message for callback. 12/16/2020 11:42:47 EDT Results faxed to infection control. The [employer] Veritor? System for Rapid Detection of SARS-CoV-2 is [...] or revoked sooner. Performed By: #### 2 [id number] #### [facility] Laboratory [address] [place] [address] Employed in Healthcare Unknown Normal [facility] Comment on above: Performed By: #### 2 [id number] #### [facility] Laboratory [address] [place] [address] First Test Unknown [facility] Comment on above: Performed By: #### 2 [id number] #### [facility] Laboratory [address] [place] [address] Hospitalized? NO Normal [facility] Comment on above: Performed By: #### 2 [id number] #### [facility] Laboratory [address] [place] [address] ICU NO Normal [facility] Comment on above: Performed By: #### 2 [id number] #### [facility] Laboratory [address] [place] [address] ? Unknown Normal [facility] Comment on above: Performed By: #### 2 [id number] #### [facility] Laboratory [address] [place] [address] Resides in a Congregate Care Setting Unknown Normal [facility] Comment on above: Performed By: #### 2 [id number] #### [facility] Laboratory [address] [place] [address] Symptomatic as defined by CDC YES Normal [facility] Comment on above: Performed By: #### 2 [id number] #### [facility] Laboratory [address] [place] [address] Ambulatory Clinical Summaryo n 11-25-2020 Ambulatory Clinical Summary {[id number]}CD:[id number] Normal [facility] Vital Signs Date Time Vital Sign Value Performing Clinician Facility 06-29-2024 09:12-0400 Body mass index (BMI) [Ratio] 24.58 kg/m2 [facility] Nurse [facility] 06-29-2024 09:12-0400 Body weight 62.94 kg [facility] Nurse [facility] 06-29-2024 09:12-0400 Diastolic blood pressure 72 mm[Hg] [facility] Nurse [facility] 06-29-2024 09:12-0400 Systolic blood pressure 122 mm[Hg] [facility] Nurse [facility] 12-26-2022 13:45-0400 Body height 160.02 cm Jennifer Huston Other [facility] Other 12-26-2022 13:45-0400 Body mass index (BMI) [Ratio] 27.45 kg/m2 Jennifer Huston Other [facility] Other 12-26-2022 13:45-0400 Body temperature 97 [degF] Jennifer Huston Other [facility] Other 12-26-2022 13:45-0400 Body weight 70.31 kg Jennifer Huston Other [facility] Other 12-26-2022 13:45-0400 Diastolic blood pressure 89 mm[Hg] Jennifer Huston Other [facility] Other 12-26-2022 13:45-0400 Respiratory rate 18 /min Jennifer Huston Other [facility] Other 12-26-2022 13:45-0400 SaO2% (BldA) [Mass fraction] 100 % Jennifer Huston Other [facility] Other 12-26-2022 13:45-0400 Systolic blood pressure 135 mm[Hg] Jennifer Huston Other [facility] Other Encounters Encounter Date Encounter Type Care Provider Facility Start: 07-21-2024 End: 07-21-2024 Clinisync Result Encounter Mackenzie Michael DO Work Phone: [facility] Unsolicited Start: 07-21-2024 End: 07-21-2024 Clinisync Result Encounter Mackenzie Michael DO Work Phone: [facility] Unsolicited Start: 06-29-2024 End: 06-29-2024 Office outpatient visit 5 minutes [facility] Michael Nurse [facility] Comment on above: GA: 7w1d Start: 06-29-2024 End: 06-29-2024 ambulatory Not Available Start: 12-26-2022 Office outpatient ne w 20 minutes Jennifer Huston [facility] Start: 12-26-2022 End: 12-26-2022 ambulatory Jennifer Dudleymond [facility] [employer] Other Start: 12-26-2022 End: 12-26-2022 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 Facility: Start: 08-16-2022 End: 08-16-[address] DOCTOR RAMIREZC Facility:[facility]1 Start: 08-10-2022 End: 08-12-2022 Evaluation and management of inpatient DR DOCTOR ATWOOD Facility:[facility]1 Start: 08-07-2022 End: 08-07-[address] DOCTOR RAMIREZC Facility:[facility]1 Start: 07-31-2022 End: 07-31-[address] MACKENZIE RODRIGUEZ . Facility:[facility] Start: 07-29-2022 End: 07-29-[address] MACKENZIE RODRIGUEZ . Facility:[facility] Start: 07-24-2022 End: 07-24-[address] MACKENZIE RODRIGUEZ . Facility:[facility]1 Start: 07-10-2022 End: 07-11-[address] MACKENZIE RODRIGUEZ . Facility:[facility]1 Start: 07-06-2022 End: 07-06-[address] DOCTOR RAMIREZC Facility:[facility]1 Start: 06-14-2022 End: 06-15-[address] MACKENZIE RODRIGUEZ . Facility:[facility]1 Start: 06-03-2022 End: 06-04-[address] MACKENZIE DCO . Facility:[facility]1 Start: 05-21-2022 End: 05-22-[address] MACKENZIE DCO . Facility:[facility]1 Start: 05-10-2022 End: 05-10-[address] MACKENZIE DCO . Facility:[facility]1 Start: 05-10-2022 End: 05-10-[address] DOCTOR RAMIREZC Facility:[facility]1 Start: 05-03-[address] MACKENZIE RODRIGUEZ . Facili ty:H1 Start: 04-27-2022 End: 04-27-[address] MACKENZIE DCO . Facility:[facility]1 Start: 04-12-2022 End: 04-12-[address] MACKENZIE DCO . Facility:[facility]1 Start: 04-12-2022 End: 04-13-[address] MACKENZIE DCO . Facility:[facility]1 Start: 03-26-2022 End: 03-27-[address] MACKENZIE DCO . Facility:[facility]1 Start: 01-22-2022 End: 01-23-[address] MACKENZIE DCO . Facility:[facility]1 Start: 01-14-2022 End: 01-15-[address] MACKENZIE RODRIGUEZ . Facility: Procedures Date Procedure Procedure Detail Performing Clinician Start: 07-21-2024 ALL CBC WITH AUTO DIFF Mackenzie Rodriguez DO Work Phone: Start: 07-21-2024 [facility] DRUG SCREEN RAPI D (URINE) Mackenzie Rodriguez DO Work Phone: Start: 06-29-2024 End: 06-29-2024 Urnls dip stick/tablet rgnt non-auto w/o micrscp Mackenzie Rodriguez DO Work Phone: Start: 12-26-2022 Plain X-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 hand [employer] Jennifer Huston Work Phone: Start: 08-10-2022 Delivery [...] AM EST Routine [facility] [address] [address] Mackenzie Rodriguez DO [address] [place] [address] [facility] Start: 06-29-2024 End: 06-29-2025 ABO/Rh ABO/Rh Lab Routine Missed menses , unspecified gestational age Expected: 06/29/2024 (Approximate), Expires: 06/29/2025 [facility] Comment on above: Expected: 06/29/2024 (Approximate), Expires: 06/29/2025 Start: 06-29-2024 End: 06-29-2025 Blood type and Indirect antibody screen panel - Blood Type and screen Lab Routine Missed menses , unspecified gestational age Expected: 06/29/2024 (Approximate), Expires: 06/29/2025 [facility] Work Phone: Comment on above: Expected: 06/29/2024 (Approximate), Expires: 06/29/2025 Start: 06-29-2024 End: 06-29-2025 Drugs of abuse panel - Urine by Screen method Rapid drug screen, urine Lab Routine , unspecified gestational age Encounter for supervision of normal first in first trimester Expected: 06/29/2024 (Approximate), Expires: 06/29/2025 [facility] Comment on above: Expected: 06/29/2024 (Approximate), Expires: 06/29/2025 Start: 06-29-2024 End: 06-29-2025 US Pelvis transvaginal US OB transvaginal Imaging Routine Missed menses Expected: 06/29/2024 (Approximate), Expires: 06/29/2025 [facility] Comment on above: Expected: 06/29/2024 (Approximate), Expires: 06/29/2025 Start: 05-27-2024 Influenza vaccination Influenza Vacc ine (#1) [facility] Bacteria identified in Urine by Culture Urine culture Microbiology Routine Missed menses Ordered: 06/29/2024 [facility] Comment on above: Ordered: 06/29/2024 CBC W Auto Different ial panel - Blood CBC and differential Lab Routine Missed menses , unspecified gestational age Ordered: 06/29/2024 [facility] Comment on above: Ordered: 06/29/2024 Hemoglobin A1c/Hemoglobin.total in Blood Hemoglobin A1c Lab Routine Missed menses , unspecified gestational age Ordered: 06/29/2024 [facility] Comment on above: Ordered: 06/29/2024 Hepatitis B virus surface Ag [Presence] in Serum or Plasma by Immunoassay Hepatitis B surface antigen Lab Routine Missed menses , unspecified gestational age Ordered: 06/29/2024 [facility] Comment on above: Ordered: 06/29/2024 Hepatitis C virus Ab [Presence] in Serum or Plasma by Immunoassay Hepatitis C antibody Lab Routine Missed menses , unspecified gestational age Ordered: 06/29/2024 [facility] Comment on above: Ordered: 06/29/2024 HIV-1/HIV-2 antigen/antibody combination immunoassay HIV-1 and HIV-2 antibodies Lab Routine Missed menses , unspecified gestational age Ordered: 06/29/2024 [facility] Comment on above: Ordered: 06/29/2024 Reagin Ab [Presence] in Serum by RPR RPR Lab Routine Missed menses , unspecified gestational age Ordered: 06/29/2024 [facility] Comment on above: Ordered: 06/29/2024 Rubella antibody, IgG Rubella an tibody, IgG Lab Routine Missed menses , unspecified gestational age Ordered: 06/29/2024 [facility] Comment on above: Ordered: 06/29/2024 Immunizations Immunization Date Immunization Notes Care Provider Ryne abrams 08-28-2002 influenza virus vacc ine, unspecified formulation Noms Nurse [facility] Payers Date Payer Category Payer Medicaid [employer] [employer] [id number] 2023-Present [address] [place] [id number] 2023 Medicaid (Managed Care) [employer] [id number] 2021 [facility] er [id number]. [id number] 2021 Unknown BCBS BCBS [id number] [id number] 2021-Present [phone] [address] [place] [id number] 1.2.840.824893.1.13.693.2. 7.3.771115.315 2001 Unknown [id number] 2.16.840.1.861891.3.579.2. 593 2001 Unknown [id number] 2.16.840.1.140501.3.579.2. 593 2001 Unknown [id number] 2.16.840.1.079160.3.579.2. 593 2001 Unknown [id number] 2.16.840.1.927949.3.579.2. 593 2001 Unknown [id number] 2.16.840.1.857719.3.579.2. 593 2001 Unknown [id number] 2.16.840.1.973200.3.579.2. 593 2001 Unknown [id number] 2.16.840.1.488307.3.579.2. 593 2001 Unknown [id number] 2.16.840.1.285048.3.579.2. 593 2001 Unknown [id number] 2.16.840.1.872698.3.579.2. 593 2001 Unknown [id number] 2.16.840.1.949401.3.579.2. 593 2001 Unknown [id number] 2.16.840.1.871477.3.579.2. 593 2001 Unknown [id number] 2.16.840.1.256441.3.579.2. 593 2001 Unknown [id number] 2.16.840.1.071432.3.579.2. 593 2001 Unknown [id number] 2.16.840.1.964371.3.579.2. 593 2001 Unknown [id number] 2.16.840.1.688921.3.579.2. 593 2001 Unknown [id number] 2.16.840.1.699997.3.579.2. 593 2001 Unknown [id number] 2.16.840.1.599807.3.579.2. 593 2001 Unknown [id number] 2.16.840.1.936193.3.579.2. 593 2001 Unknown [id number] 2.16.840.1.203196.3.579.2. 593 2001 Unknown [id number] 2.16.840.1.465893.3.579.2. 593 2001 Unknown [id number] 2.16.840.1.871015.3.579.2. 593 2001 Unknown [id number] 2.16.840.1.625502.3.579.2. 1259 1959 Self-pay 1959 Unknown [id number] 1959 Unknown [id number] Unknown [id number] 2.16.840.1.501244.3.579.2. 593 Unknown [id number] 2.16.840.1.712438.3.579.2. 531 Social History Date Type Detail Facility Start: 10-13-2023 Sex Assigned At [facility] [employer] Other Start: 2000 Sex Assigned At Female F [facility] Start: 10-13-2023 Tobacco smoking stat [facility] Never smoked tobacco [facility] Start: 06-29-2024 [...] blood transfusion Lead poisoning Nonsmoker Post depression (CMS/HCC) Family History Problem Relation Name Age of [...] or undercooked meat, and stay away from [facility]. Patient has also been advised to not [...] by: Whitney Peacock documented in this encounter [facility] Evaluation note 12-26-2022 Note Date & Type [...] appointment to be seen soon as possible [employer] Other Evaluation note Note Date & Type Note Facility Evaluation note No assessment information christi [facility] Work Phone: Evaluation note Note Date & [...] section and content) DATE CREATED AUTHOR 09/24/2021 [facility] DATE CREATED AUTHOR AUTHOR'S ORGANIZ ATION 12/07/2022 Antonio Morataya [facility] DATE CREATED AUTHOR AUTHOR'S ORGANIZ ATION 01/08/2023 [facility] DATE CREATED AUTHOR AUTHOR'S ORGANIZ ATION 07/01/2024 [facility] dical Specialists EPIC REASON FOR VISIT (unrecogniz ed section and content) Reason Comments Initial Visit Care Teams (unrecognized sec tion and content) Team Status: Inactive Member Role Status Dates 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 [employer] [facility]. provides no warranty or guarantee of the accuracy or completeness of information in this document.
--- NOTE | 2024-08-02 19:10 | US_ITS ---
The [address] [address] Patient Name: VIMAL PIZANO MRN: [id number] date: 2000 Sex: F Assigned Patient Location: ER Current Patient Location: ER Accession/Order Number: [id number] Exam Date: 08/02/2024 19:17 Report Date: 08/02/2024 21:24 At the request of: KISHAN MARKER Procedure: US OB transvaginal EXAM: US OB transvaginal HISTORY: R/O miscarriage COMPARISON: 06/29/2024 TECHNIQUE: Transvaginal real-time grayscale and color Doppler imaging with pulsed duplex sonography was performed. FINDINGS: UTERUS: Gestational sac, yolk sac and pole with crown-rump length measurement of 1.64 centimeters which corresponds to a sonographic gestational age of 8 weeks and days. heart rate is not detected. The cervix is closed. OVARIES: Bilateral ovaries are not visualized. MISCELLANEOUS: No significant free fluid. US/US OB transvaginal IMPRESSION: Findings diagnostic for failure per SRU criteria with crown-rump length measurement of 1.64 centimeters without detected heart rate. Electronically authenticated by: MIRTA PASCUAL Date: 08/02/2024 21:24
--- NOTE | 2024-08-02 19:15 | ED_ITS ---
HPI - Female Genitourinary General Chief complaint: Vaginal Bleeding Stated complaint: VAGINAL BLEEDING Time Seen by Provider: 08/02/24 19:09 Source: patient Mode of arrival: walk-in History of Present Illness HPI Narrative: This 24-year-old male G2, P1 who is approximately 12 weeks [address] Rodriguez presents for evaluation of vaginal bleeding. The patient states she had some bright red blood yesterday when she went to the bathroom. It has been coming and going and today she had several episodes of brown blood when she went to the bathroom. She does not have any abdominal pain. She denies any chest pain or shortness of breath. She has not recently had intercourse. She states she just went to the bathroom after getting to the hospital and when she wiped there was no blood. She had blood work done at this facility on 07/21/24 and her blood type is A positive. Related Data Home Medications ?Medication ?Instructions ?Recorded ?Confirmed ondansetron HCl 4 mg tablet mg 08/02/24 Allergies Allergy/AdvReac Type Severity Reaction Status Date / Time No Known Drug Allergies Allergy Verified 08/02/24 19:05 Review of Systems ROS Status of ROS 10 or more systems reviewed and unremark able except as noted in history and below PFSH PFSH Social History Little interest or pleasure in doing things: not at all Feeling down, depressed, or hopeless: not at all Exam Narrative Exam Narrative: Vital signs and Nursing Notes reviewed: Patient is afebrile with a normal pulse, normal blood pressure, she is not hypoxic with pulse ox of 100% on room air General: Awake, alert, oriented, no acute distress, lying comfortably on the stretcher HEENT: Normocephalic atraumatic, mucous membranes are moist and pink, eyes are clear, normal conjunctiva, vision is grossly intact Chest: Lungs are clear to auscultation with good air entry, there is no wheezing rhonchi or rales appreciated no accessory muscle use, patient is speaking in complete sentences-no chest wall tenderness to palpation CVS: Regular rate and rhythm S1-S2, no murmurs rubs or gallops, pulses are brisk and equal bilaterally ABD: Soft, nondistended, nontender, no rebound guarding or rigidity, bowel sounds are normal, no pulsatile masses appreciated Extremities: Moving all extremities, no lower extremity tenderness or swelling noted, negative Homans' sign, pulses are brisk and equal bilaterally Skin: Normal in appearance without rash,pallor, petechiae or purpura Neuro: No focal deficits Constitutional Vital Signs, click to edit/add: Last Vital Signs Temp 98.2 F 08/02/24 19:02 Pulse 72 08/02/24 19:02 Resp 18 08/02/24 19:02 BP 129/78 08/02/24 19:02 Pulse Ox 100 08/02/24 19:02 O2 Del Method Room Air 08/02/24 19:02 Course Vital Signs Vital signs: Vital Signs Temperature 98.2 F 08/02/24 19:02 Pulse Rate 72 08/02/24 19:02 Respiratory Rate 18 08/02/24 19:02 Blood Pressure 129/78 08/02/24 19:02 Pulse Oximetry 100 08/02/24 19:02 Oxygen Delivery Method Room Air 08/02/24 19:02 Temperature 98.2 F 08/02/24 19:02 Pulse Rate 72 08/02/24 19:02 Respiratory Rate 18 08/02/24 19:02 Blood Pressure 129/78 08/02/24 19:02 Pulse Oximetry 100 08/02/24 19:02 Oxygen Delivery Method Room Air 08/02/24 19:02 MDM - Female Genitourinary MDM Narrative Medical decision making narrative: This 24-year-old female G2, P1 who is approximately 12 weeks and has had an ultrasound last month and sees Dr. Rodriguez presents for evaluation of vaginal spotting that started yesterday. The spotting has been intermittent. Has been bright red at times and then brown. She is not having any abdominal pain. She has not had a fever. She has not been sexually active. Her blood type is a positive. Her physical exam and vital signs are normal. Her abdomen is soft and nontender. Beta quantitative hCG, CBC with differential, comprehensive profile and OB ultrasound was ordered. She has a normal white count and hemoglobin. Her beta quantitative hCG is low for her dates. Comprehensive metabolic profile is normal. Ultrasound shows a demise with no heart rate. The results of the ultrasound and labs were discussed with the patient. She verbalizes understanding. She has an appointment with Dr. Rodriguez on Tuesday. She was encouraged to return to the emergency department for fever, severe abdominal pain, heavy vaginal bleeding or any concerns. Medical Records Medical records narrative: The [address] [address] Ultrasound Report Signed Patient: VIMAL PIZANO MR#: [id number] : 2000 Acct:[id number] Age/Sex: 24 / F ADM Date: 08/02/24 Loc: ER Attending Dr: Ordering Physician: Megan Motta Date of Service: 08/02/24 Procedure(s): US OB transvaginal Accession Number(s): [id number] cc: LUIS SEE ; Megan Motta~ The [address] [address] Patient Name: VIMAL PIZANO MRN: [id number] date: 2000 Sex: F Assigned Patient Location: ER Current Patient Location: ER Accession/Order Number: [id number] Exam Date: 08/02/2024 19:17 Report Date: 08/02/2024 21:24 At the request of: MEGAN MOTAT Procedure: US OB transvaginal EXAM: US OB transvaginal HISTORY: R/O miscarriage COMPARISON: 06/29/2024 TECHNIQUE: Transvaginal real-time grayscale and color Doppler imaging with pulsed duplex sonography was performed. FINDINGS: UTERUS: Gestational sac, yolk sac and pole with crown-rump length measurement of 1.64 centimeters which corresponds to a sonographic gestational age of 8 weeks and days. heart rate is not detected. The cervix is closed. OVARIES: Bilateral ovaries are not visualized. MISCELLANEOUS: No significant free fluid. US/US OB transvaginal IMPRESSION: Findings diagnostic for failure per SRU criteria with crown-rump length measurement of 1.64 centimeters without detected heart rate. Electronically authenticated by: MIRTA PASCUAL Date: 08/02/2024 21:24 Lab Data Labs: Lab Results 08/02/24 Range/Units 19:56 WBC 11.1 H (4.0-11.0) 10^3/uL RBC 4.61 (4.20-5.40) 10^6/uL Hgb 14.7 (12.0-16.0) g/dL Hct 43.1 (36.0-48.0) % MCV 93.5 (81.0-99.0) fL MCH 31.9 (26.7-34.0) pg MCHC 34.1 (29.9-35.2) g/dL RDW 11.9 (11.0-15.0) % Plt Count 252 (150-450) 10^3/uL MPV 10.2 (9.5-13.5) fL Neut % (Auto) 69.9 (43.0-75.0) % Lymph % (Auto) 19.3 L (20.5-60.0) % [place] % (Auto) 6.3 (1.7-12.0) % Eos % (Auto) 3.7 (0.9-7.0) % Baso % (Auto) 0.6 (0.2-2.0) % Neut # (Auto) 7.7 H (1.4-6.5) 10^3/uL Lymph # (Auto) 2.1 (1.2-3.8) 10^3/uL [place] # (Auto) 0.7 (0.3-0.8) 10^3/uL Eos # (Auto) 0.4 (0.0-0.7) 10^3/uL Baso # (Auto) 0.1 (0.0-0.1) 10^3/uL Abs Immat Gran (auto) 0.02 (0.00-0.03) 10^3/uL Imm/Tot Granulo (auto) 0.2 (0.0-0.5) % Sodium 140 (136-145) mmol/L Potassium 3.4 L (3.5-5.1) mmol/L Chloride 105 (98-107) mmol/L Carbon Dioxide 23.2 (21.0-32.0) mmol/L Anion Gap 15.2 BUN 11.0 (7.0-18.0) mg/dL Creatinine 0.61 (0.55-1.02) mg/dL Est GFR ( Amer) >60 (>=60 mL/min/1.73m^2) Est GFR (Non-Af Amer) >60 (>=60 mL/min/1.73m^2) BUN/Creatinine Ratio 18.0 Glucose 96 (74-106) mg/dL Calcium 9.1 (8.5-10.1) mg/dL Total Bilirubin 0.2 (0.2-1.0) mg/dL AST 17 (15-37) U/L ALT 18 (14-59) U/L Alkaline Phosphatase 74 (46-116) U/L Total Protein 7.6 (6.4-8.2) g/dL Albumin 3.5 (3.4-5.0) g/dL Globulin 4.1 g/dL Albumin/Globulin Ratio 0.9 HCG, Quant 1656 mIU/mL Discharge Plan Discharge Chief Complaint: Vaginal Bleeding Clinical Impression: Miscarriage Patient Disposition: Home, Self-Care Time of Disposition Decision: 21:43 Condition: Good Prescriptions / Home Meds: No Action ondansetron HCl 4 mg tablet Print Language: [place] Instructions: Miscarriage (ED) Referrals: Jose Rodriguez DO [Physician] - As soon as possible LUIS SEE [Primary Care Provider] - 1 week
[2024-08-02 20:12] LABS: Basophils Absolute Auto 0.1 10^3/uL (0.0-0.1); Basophils Percent Auto 0.6 % (0.2-2.0); Eosinophils Absolute Auto 0.4 10^3/uL (0.0-0.7); Eosinophils Percent Auto 3.7 % (0.9-7.0); Hematocrit 43.1 % (36.0-48.0); Hemoglobin 14.7 g/dL (12.0-16.0); Immature Granulocytes Abs Auto 0.02 10^3/uL (0.00-0.03); Immature Granulocytes Pct Auto 0.2 % (0.0-0.5); Lymphocytes Absolute Auto 2.1 10^3/uL (1.2-3.8); Lymphocytes Percent Auto 19.3 % (20.5-60.0); Mean Corpuscular HGB Conc 34.1 g/dL (29.9-35.2); Mean Corpuscular Hemoglobin 31.9 pg (26.7-34.0); Mean Corpuscular Volume 93.5 fL (81.0-99.0); Mean Platelet Volume 10.2 fL (9.5-13.5); Monocytes Absolute Auto 0.7 10^3/uL (0.3-0.8); Monocytes Percent Auto 6.3 % (1.7-12.0); Neutrophils Absolute Auto 7.7 10^3/uL (1.4-6.5); Neutrophils Percent Auto 69.9 % (43.0-75.0); Platelet Count 252 10^3/uL (150-450); Red Blood Count 4.61 10^6/uL (4.20-5.40); Red Cell Distribution Width 11.9 % (11.0-15.0); White Blood Count 11.1 10^3/uL (4.0-11.0)
[2024-08-02 20:35] LABS: Alanine Aminotransferase 18 U/L (14-59); Albumin Globulin Ratio 0.9; Albumin Level 3.5 g/dL (3.4-5.0); Alkaline Phosphatase 74 U/L (46-116); Anion Gap 15.2; Aspartate Amino Transferase 17 U/L (15-37); Bilirubin Total 0.2 mg/dL (0.2-1.0); Calcium 9.1 mg/dL (8.5-10.1); Carbon Dioxide 23.2 mmol/L (21.0-32.0); Chloride 105 mmol/L (98-107); Estimated GFR (African America >60 (>=60 mL/min/1.73m^2); Estimated GFR (Non-African Ame >60 (>=60 mL/min/1.73m^2); Globulin 4.1 g/dL; Glucose 96 mg/dL (74-106); Potassium 3.4 mmol/L (3.5-5.1); Sodium 140 mmol/L (136-145); Total Protein 7.6 g/dL (6.4-8.2)
[2024-08-02 20:59] LABS: HCG Quantitative 1656 mIU/mL
[2024-08-02 21:53] VITALS: BP 126/101; PULSE 91; O2SAT 100
== END 2024-08-02 21:53 | disposition home or self-care (01) ==
PROVIDERS: Emergency Provider Emergency Medicine; PCP Nurse Practitioner Family
DX: O03.9 Complete or unspecified spontaneous abortion without complication (principal)
CPT/HCPCS: 36415; 76817; 80053; 84702; 85025; 86900; 86901; 99284

== ENCOUNTER 2024-08-09 09:12 | Outpatient (OUT) | payer BC, OTHER, SELFPAY ==
--- OUTSIDE RECORDS SUMMARY | 2024-08-09 09:25 | XMS_ITS | CCD ---
Author Organization [facility] Care Team Providers Care Drying Room Attendant Name Role Phone MICHAEL ., DR MANN [...] e MICHAEL ., DR MANN Consulting Unavailable SHARPDARIN Consulting Unavailable MICHAEL ., DR MANN Procedure Practitioner Unavail able MICHAEL ., DR MANN Admitting Unavailable MICHAEL ., DR MANN Attending Unavailable MISC, DR DOMINIQUE Primary Care Unavailable MICHAEL ., DR MANN Consulting Unavailable MICHAEL ., DR MANN Admitting Unavailable MICHAEL ., DR MANN Attending Unavailable MISC, DR DOMINIQUE Primary Care Unavailable MICHAEL ., DR MNAN Consulting Unavailable MICHAEL ., DR MANN Admitting [...] Unavailable MICHAEL ., DR MANN Consulting Unavailable NATALIYAANDREAS Noel Consulting Unavailable MISC, DR DOMINIQUE Primary Care Unavailable MICHAEL ., DR MANN Consulting Unavailable KARASIK ., DR ANTOINE Admitting Unavailabl e KARASIK ., DR ANTOINE Attending Unavailabl e MICHAEL ., DR MANN Admitting Unavailable MICHAEL ., DR MANN Attending Unavailable MISC, DR DOMINIQUE Primary Care Unavailable IRVING, DR COCO Danielle Consulting Unavailable MICHAEL ., DR MANN Consulting Unavailable MICHAEL ., DR MANN Admitting Unavailable MICHAEL ., DR MANN Attending Unavailable MISC, DR DOMINIQUE Primary Care Unavailable MICHAEL ., DR MANN Consulting Unavailable MICHAEL ., DR AMNN Admitting Unavailable MICHAEL ., DR MANN Attending Unavailable MISC, DR DOMINIQUE Primary Care Unavailable IRVING, DR COCO Danielle Consulting Unavailable MICHAEL ., [...] Unavailable MICHAEL ., DR MANN Consulting Unavailable [facility], DR DOMINIQUE Primary Care Unavailable DR MACKENZIE RICHEY Consulting Unavailable CARIDAD NGUYEN Admitting Unavailable CARIDAD NGUYEN Attending Unavailable DONALD, DR ESTEFANY Zurita Consulting Unavailable CARIDAD NGUYEN Consulting Unavailable Jennifer Huston Unavailable JEFFERY Huston Attending Provider Jennifer Huston Attending Unavailable Jennifer Huston Admitting Unavailable Vaishali Zapata MD Primary Care Provider MACKENZIE Garcia Attending Unavailable Medications Current Medications Medication Drug Class(es) Dates [...] WITH AUTO DIFFon BASOPHILS ABSOLUTE AUTO 0.1 [facility] Basophils/100 WBC (Bld) 0.5 % 0.2 - 2.0 % [facility] Eosinophils/100 WBC (Bld) 2.8 % 0.9 - 7.0 % [facility] Erythrocyte distribution width (RBC) [Ratio] 11.9 % 11.0 - 15.0 % [facility] Hematocrit (Bld) [Volume fraction] 44.7 % 36.0 - 48.0 % [facility] Hemoglobin (Bld) [Mass/Vol] 15.3 g/dL 12.0 - 16.0 g/dL [facility] IMMATURE GRANULOCYTES ABS AUTO 0.03 [facility] Immature granulocytes/100 WBC (Bld) 0.3 % 0.0 - 0.5 % [facility] Interpretation and review of laboratory results Abnormal [facility] LYMPHOCYTES ABSOLUTE AUTO 1.6 [facility] Lymphocytes/100 WBC (Bld) 14.9 % Low 20.5 - 60.0 % [facility] MCH (RBC) [Entitic mass] 31.7 pg 26.7 - 34.0 pg [facility] MCHC (RBC) [Mass/Vol] 34.2 g/dL 29.9 - 35.2 g/dL [facility] MCV (RBC) [Entitic vol] 92.7 fL 81.0 - 99.0 fL [facility] MONOCYTES ABSOLUTE AUTO 0.4 [facility] Monocytes/100 WBC (Bld) 3.7 % 1.7 - 12.0 % [facility] NEUTROPHILS ABSOLUTE AUTO 8.2 High [facility] Neutrophils/100 WBC (Bld) 77.8 % High 43.0 - 75.0 % [facility] Platelet mean volume (Bld) [Entitic vol] 10 fL 9.5 - 13.5 fL [facility]3 [facility] PLT 263 [facility] TB RBC 4.82 [facility] TB WBC 10.6 [facility] No Panel Informationon 07-21 [facility] TB DRUG SCREEN RAPID (URINE )on 07-21-2024 AMPHETAMINE SCREEN URINE Negative NEGATIVE [facility] BARBITURATES SCREEN URINE Negative NEGATIVE [facility] BENZODIAZEPINES SCREEN URINE Negative NEGATIVE [facility] BUPRENORPHINE SCREEN URINE Negative NEGATIVE [facility] Comment on above: DRUG CLASS TEST SYST [...] 300 ng/mL CANNABINOID SCREEN URINE Negative NEGATIVE [facility] COCAINE SCREEN URINE Negative NEGATIVE [facility] METHADONE SCREEN URINE Negative NEGATIVE [facility] METHAMPHETAMINES SCREEN URINE Negative NEGATIVE [facility] OPIATE SCREEN URINE Negative NEGATIVE [facility] OXYCODONE SCREEN URINE Negative NEGATIVE [facility] PHENCYCLIDINE SCREEN URINE Negative NEGATIVE [facility] TRICYCLIC ANTIDEPRESSANT URINE Negative NEGATIVE [facility] REEFLEX IF POSITIVE [facility]INIS[facility] HCG ( test) Ql (U)o n 06-29-2024 Interpretation and review of laboratory results Abnormal [facility] Preg Test, Ur Positive [facility] Urinalysis macro (dipstick) panel (U)on 06-29-2024 Bilirubin, UA Negative Negative - 4(70) +++ mg/dL [facility] Blood, UA Negative Negative - 50 Jason/mcL [facility] Clarity, UA Clear [facility] re Color, UA Yellow [facility] Glucose, UA Negative Negative - 1999(110) ++++ mg/dL [facility] Interpretation and review of laboratory results Normal [facility] Ketones, UA Negative Negative - 160(16) ++++ mg/dL [facility] Leukocytes, UA Negative Negative - 500+++ Carlos/mcL [facility] Nitrite, UA Negative Negative - Positive [facility] pH, UA 7.0 5 - 9 [facility] Protein, UA Negative Negative - 1999(20) ++++ mg/dL [facility] Spec Grav, UA 1.015 1 - 1.03 [facility] Urobilinogen, UA 0.2 0.2 - 12 mg/dL [facility] XR hand RT min 3V*on 023 XR hand RT min 3V* [address] [address] XRay Report Signed Patient: Vimal Funes MR#: [id number] 18 : 2000 Acct:[id number] Age/Sex: 22 / F ADM Date: 12/26/22 Loc: XDUCLY Room: Type: [facility] Attending Dr: Jennifer GIL Copies to: JEFFERY [...] Arias Jr., Bahman12/26/2022 1:44 PM Dictation Location: [place] [address] Transcribed By: [facility] 12/26/22 1344 Dictated By: Bulmaro Arias Jr, DO 12/26/22 1343 Signed By: 12/26/22 1344 Normal [facility] XR hand RT min 3V* [facility] [employer] Other XR hand RT min 3V* [facility] [employer] Other XR hand RT min 3V* 0038 [facility] [employer] Other XR hand RT min 3V* [place] [address] [facility] [employer] Other XR hand RT min 3V* XRay Report [facility] [employer] Other XR hand RT min 3V* Signed [employer] [facility] [employer] Other XR hand RT min 3V* Patient: Vimal Funes MR#: [id number] [employer] Other XR hand RT min 3V* 18 [employer] Other XR hand RT min 3V* : 2000 Acct:[id number] [employer] Other XR hand RT min 3V* Age/Sex: 22 / F ADM Date: 12/26/22 [employer] Other XR hand RT min 3V* Loc: XDUCLY Room: Type: [facility] [employer] Other XR hand RT min 3V* Attending Dr: Jennifer GIL [employer] Other XR hand RT min 3V* Copies to: JEFFERY Rodriguez [employer] Other XR hand RT min 3V* Ordering Provider: JEFFERY Rodriguez [employer] Other XR hand RT min 3V* Date of Service: 12/26/22 [employer] Other XR hand RT min 3V* XR/XR hand RT min 3V*: RIGHT HAND INJURY [employer] Other XR hand RT min 3V* RIGHT HAND - 4 views [employer] Other XR hand RT min 3V* REASON FOR EXAM: Patient had right thumb hyperextended yesterday when trying to open the door. Now [employer] Other XR hand RT min 3V* with pain. [employer] Other XR hand RT min 3V* COMPARISON: None [employer] Other XR hand RT min 3V* FINDINGS: [employer] Other XR hand RT min 3V* No focal soft tissue abnormality. There appears to be avulsion fracture involving the base of the [employer] Other XR hand RT min 3V* distal phalanx of the thumb. Joint spaces appear maintained. No bony erosions. [employer] Other XR hand RT min 3V* XR/XR hand RT min 3V* [employer] Other XR hand RT min 3V* IMPRESSION: [employer] Other XR hand RT min 3V* AVULSION FRACTURE INVOLVING THE BASE OF THE DISTAL PHALANX OF THE THUMB. [employer] Other XR hand RT min 3V* Impression dictated by: Bulmaro Arias Jr., MaryOGene12/26/2022 1:44 PM [employer] Other XR hand RT min 3V* Dictation Location: [facility] [employer] Other XR hand RT min 3V* Transcribed By: PWS 12/26/22 [facility] [employer] Other XR hand RT min 3V* Dictated By: Bulmaro Arias Jr, DO 12/26/22 [facility] [employer] Other XR hand RT min 3V* Signed By: [employer] Other XR hand RT min 3V* 12/26/[address] [place] [address] [employer] Other PAP ACOG PANEL 2: 22 to 30on 11-09-2022 . . Normal [facility] Comment on above: Performed By: #### [id number] ####[facility] [address] [place] [id number] Mancini Age Gdln ACOG Testing 22- Normal [facility] Comment on above: Performed By: #### 4 [id number] ####[facility] [address] [place], [place] [address]TmGene Mancini DIAGNOSIS: Comment Normal [facility] Comment on above: Result Comment: NEGA TIVE FOR INTRAEPITHELIAL LESION OR MALIGNANCY. Performed By: #### [id number] ####[facility] [address] [place], [place] [address]DrGene Mancini Methodology: Comment Normal [facility] Comment on above: Result Comment: This liquid based ThinPrep(R) pap test was screened with the use of an image guided system. Performed By: #### 4 [id number] ####[place] [address]DrGene Mancini Note: Comment Normal [facility] Comment on above: Result Comment: The Pap smear is a screening test designed to aid in the detection of premalignant and malignant conditions of the uterine cervix. It is not a diagnostic procedure and should not be used as the sole means of detecting cervical cancer. Both false-positive and false-negative reports do occur. . Performed By: #### 4 [id number] ####[place] [address]Dr. Donis Mancini Performed by: Comment Normal [facility] Comment on above: Result Comment: Zuleima Lin, Instructional Leader (ASCP) Performed By: #### 4 [id number] ####[place] [address]DrGene Mancini Reflex Criteria: Comment Normal [facility] Comment on above: Result Comment: The HPV DNA reflex criteria were not met with this specimen result therefore, no HPV testing was performed. . Performed By: #### 4 [id number] ####[facility] [address] [place], [place] [address]DrGene Mancini Specimen adequacy: Comment Normal [facility] Comment on above: Result Comment: Sati sfactory for evaluation. Endocervical and/or squamous metaplastic cells (endocervical component) are present. Performed By: #### 4 [id number] ####[facility] [address] [place], [place] [address]DrGene Mancini CBC AUTO DIFFon 08-11-2022 BASO # 0.0 103/ul Normal 0.0-0.1 [facility] Comment on above: Performed By: #### C T/NGNA #### [facility] [address] [place] [address] Dr. Donis Mancini Basophils/100 WBC (Bld) 0.2 % Normal 0.2-2.0 [facility] Comment on above: Performed By: #### C T/NGNA #### [facility] [address] [place] [address] Dr. Donis Mancini EO # 0.1 103/ul Normal 0.0-0.7 [facility] Comment on above: Performed By: #### C T/NGNA #### [facility] [address] [place] [address] Dr. Donis Mancini Eosinophils/100 WBC (Bld) 0.5 % Critically low 0.9-7.0 [facility] Comment on above: Performed By: #### C T/NGNA #### [facility] [address] [place] [address] Dr. Donis Mancini Erythrocyte distribution width (RBC) [Ratio] 12.5 % Normal 11.0-15.0 [facility] Comment on above: Performed By: #### C T/NGNA #### [facility] [address] [place] [address] Dr. Donis Mancini Hematocrit (Bld) [Volume fraction] 35.9 % Critically low 36.0-48.0 [facility] Comment on above: Performed By: #### C T/NGNA #### [facility] [address] [place] [address] Dr. Donis Mancini Hemoglobin (Bld) [Mass/Vol] 12.4 g/dL Normal 12.0-16.0 [facility] Comment on above: Result Comment: michelet ent delivered Performed By: #### C T/NGNA #### [facility] [address] [place] [address] Dr. Donis Mancini IG # 0.10 10e3/ul Critically high 0.00-0.03 [facility] Comment on above: Performed By: #### C T/NGNA #### [facility] [address] [place] [address] Dr. Donis Mancini IG % 0.5 % Normal 0.0-0.5 [facility] Comment on above: Performed By: #### C T/NGNA #### [facility] [address] [place] [address] Dr. Donis Mancini LYMPH # 1.5 103/ul Normal 1.2-3.8 [facility] Comment on above: Performed By: #### C T/NGNA #### [facility] [address] [place] [address] Dr. Donis Mancini Lymphocytes/100 WBC (Bld) 7.6 % Critically low 20.5-60.0 [facility] Comment on above: Performed By: #### C T/NGNA #### [facility] [address] [place] [address] Dr. Donis Mancini MANUAL DIFF REQ NO Normal [facility] Comment on above: Performed By: #### C T/NGNA #### [facility] [address] [place] [address] Dr. Donis Mancini MCH (RBC) [Entitic mass] 32.2 pg Normal 26.7-34.0 [facility] Comment on above: Performed By: #### C T/NGNA #### [facility] [address] [place] [address] Dr. Donis Mancini MCHC (RBC) [Mass/Vol] 34.5 g/dL Normal 29.9-35.2 [facility] Comment on above: Performed By: #### C T/NGNA #### [facility] [address] [place] [address] Dr. Donis Mancini MCV (RBC) [Entitic vol] 93.2 fL Normal 81.0-99.0 [facility] Comment on above: Performed By: #### C T/NGNA #### [facility] [address] [place] [address] Dr. Donis Mancini MONO # 1.3 103/ul Critically high 0.3-0.[address] [facility] Comment on above: Performed By: #### C T/NGNA #### [facility] [address] [place] [address] Dr. Donis Mancini Monocytes/100 WBC (Bld) 6.8 % Normal 1.7-12.0 [facility] Comment on above: Performed By: #### C T/NGNA #### [facility] [address] [place] [address] Dr. Donis Mancini NEUT # 16.2 103/ul Critically high 1.4-6.5 [facility] Comment on above: Performed By: #### C T/NGNA #### [facility] [address] [place] [address] Dr. Donis Mancini Neutrophils/100 WBC (Bld) 84.4 % Critically high 43.0-75.0 [facility] Comment on above: Performed By: #### C T/NGNA #### [facility] [address] [place] [address] Dr. Donis Mancini Platelet mean volume (Bld) [Entitic vol] 11.8 fL Normal 9.5-13.5 [facility] Comment on above: Performed By: #### C T/NGNA #### [facility] [address] [place] [address] Dr. Donis Mancini PLT 156 103/ul Normal 150-450 [facility] Comment on above: Performed By: #### C T/NGNA #### [facility] [address] [place] [address] Dr. Donis Mancini RBC 3.85 106/ul Critically low 4.20-5.40 [facility] Comment on above: Performed By: #### C T/NGNA #### [facility] [address] [place] [address] Dr. Donis Mancini WBC 19.2 103/ul Critically high 4.0-11.0 [facility] Comment on above: Performed By: #### C T/NGNA #### [facility] [address] [place] [address] Dr. Donis Mancini Covid-19 PCR ([facility])on 07-27 SARS-CoV-2 (COVID-19) RNA INESSA+probe Ql (Unsp spec) Not detected Normal NOT DETECTED [facility] Comment on above: Result [...] for this test is supported by the [place] of Health and Human Service's declaration that [...] be used). Performed By: #### C VDTBH ####[facility] [address] [place], [place] [address]Dr. Donis Mancini DRUG SCREEN RAPID (URINE)on 08-10-2022 AMP Negative Normal NEGATIVE [facility] Comment on above: Performed By: #### D RUGRPD ####[facility] [address] [place], [place] [address]Dr. Donis Mancini BAR Negative Normal NEGATIVE [facility] Comment on above: Performed By: #### D RUGRPD ####[facility] [address] [place] [id number]. Donis Mancini BUP Negative Normal NEGATIVE [facility] Comment on above: Performed By: #### D RUGRPD ####[facility] [address] [place] [address]Dr. Donis Mancini BZO Negative Normal NEGATIVE [facility] Comment on above: Performed By: #### D RUGRPD ####[facility] [address] [place], [place] [address]Dr. Donis Mancini ALEXA Negative Normal NEGATIVE [facility] Comment on above: Performed By: #### D RUGRPD ####[facility] [address] [place], [place] [address]Dr. Donis Mancini CUT-OFFS SEE BELOW Normal [facility] Comment on above: Result [...] 300 ng/mL Performed By: #### D RUGRPD ####[facility] [address] [place], [place] [address]Dr. Laceyjavi Mancini DRUG CUT HEADER DRUG CLASS TEST SYSTEM CUT-OFF CONCENTRATIONS ARE FOLLOWS: Normal [facility] Comment on above: Performed By: #### D RUGRPD ####[facility] [address] [place], [place] [address]Dr. Laceyjavi Mancini mAMP Negative Normal NEGATIVE [facility] Comment on above: Performed By: #### D RUGRPD ####[facility] [address] [place], [place] [address]Dr. Laceyjavi Mancini MTD Negative Normal NEGATIVE [facility] Comment on above: Performed By: #### D RUGRPD ####[facility] [address] [place], [place] [address]Dr. Donis Mancini OPI Negative Normal NEGATIVE [facility] Comment on above: Performed By: #### D RUGRPD ####[facility] [address] [place], [place] [address]Dr. Donis Mancini OXY Negative Normal NEGATIVE [facility] Comment on above: Performed By: #### D RUGRPD ####[facility] [address] [place], [place] [address]Dr. Donis Mancini PCP Negative Normal NEGATIVE [facility] Comment on above: Performed By: #### D RUGRPD ####[facility] [address] [place], [place] [address]Gg. Donis Mancini PPX Negative Normal NEGATIVE [facility] Comment on above: Performed By: #### D RUGRPD ####[facility] [address] [place], [place] [address]Dn. Donis Mancini TCA Negative Normal NEGATIVE [facility] Comment on above: Performed By: #### D RUGRPD ####[facility] [address] [place], [place] [address]Hn. Donis Mancini THC Negative Normal NEGATIVE [facility] Comment on above: Performed By: #### D RUGRPD ####[facility] [address] [place], [place] [address]Te. Donis Mancini TYPE AND SCREENon 08-10-2022 TYPE AND SCREEN Negative Normal [facility] Comment on above: Performed By: #### T NS ####[facility] [address] [place] [id number]. Donis Mancini US PREG BIOPHY W NON [...] ESTEFANY BENNETT Date: 2022-08-10 07:18 Normal [facility] US PREG GROWTHon 08-10-2022 US [...] ESTEFANY BENNETT Date: 2022-08-10 07:16 Normal [facility] CBC AUTO DIFFon 08-09-2022 BASO # 0.0 103/ul Normal 0.0-0.1 [facility] Comment on above: Performed By: #### C BC ####[facility] [address] [place], [place] [address]Dr. Donis Mancini Basophils/100 WBC (Bld) 0.2 % Normal 0.2-2.0 [facility] Comment on above: Performed By: #### C BC ####[facility] [address] [place], [place] [address]Dr. Donis Mancini EO # 0.4 103/ul Normal 0.0-0.7 [facility] Comment on above: Performed By: #### C BC ####[facility] [address] [place], [place] [address]Dr. Donis Mancini Eosinophils/100 WBC (Bld) 2.8 % Normal 0.9-7.0 [facility] Comment on above: Performed By: #### C BC ####[facility] [address] [place], [place] [address]Dr. Dnois Mancini Erythrocyte distribution width (RBC) [Ratio] 12.2 % Normal 11.0-15.0 [facility] Comment on above: Performed By: #### C BC ####[facility] [address] [place], [place] [address]Dr. Donis Mancini Hematocrit (Bld) [Volume fraction] 41.4 % Normal 36.0-48.0 [facility] Comment on above: Performed By: #### C BC ####[facility] [address] [place] [address]Dr. Donis Mancini Hemoglobin (Bld) [Mass/Vol] 14.4 g/dL Normal 12.0-16.0 [facility] Comment on above: Performed By: #### C BC ####[facility] [address] [place] [address]Dr. Donis Mancini IG # 0.06 10e3/ul Critically high 0.00-0.03 [facility] Comment on above: Performed By: #### C BC ####[facility] [address] [place] [address]Dr. Donis Mancini IG % 0.5 % Normal 0.0-0.5 [facility] Comment on above: Performed By: #### C BC ####[facility] [address] [place] [address]Dr. Donis Mancini LYMPH # 1.5 103/ul Normal 1.2-3.8 [facility] Comment on above: Performed By: #### C BC ####[facility] [address] [place] [address]Dr. Donis Mancini Lymphocytes/100 WBC (Bld) 11.7 % Critically low 20.5-60.0 [facility] Comment on above: Performed By: #### C BC ####[facility] [address] [place] [address]Dr. Donis Mancini MANUAL DIFF REQ NO Normal [facility] Comment on above: Performed By: #### C BC ####[facility] [address] [place] [address]Dr. Donis Mancini MCH (RBC) [Entitic mass] 31.9 pg Normal 26.7-34.0 [facility] Comment on above: Performed By: #### C BC ####[facility] [address] [place] [address]Dr. Donis Mancini MCHC (RBC) [Mass/Vol] 34.8 g/dL Normal 29.9-35.2 [facility] Comment on above: Performed By: #### C BC ####[facility] [address] [place] [address]Dr. Donis Mancini MCV (RBC) [Entitic vol] 91.8 fL Normal 81.0-99.0 [facility] Comment on above: Performed By: #### C BC ####[facility] [address] [place] [address]Dr. Donis Mancini MONO # 1.0 103/ul Critically high 0.3-0.8 [facility] Comment on above: Performed By: #### C BC ####[facility] [address] [place] [address]Dr. Donis Live Monocytes/100 WBC (Bld) 7.5 % Normal 1.7-12.0 [facility] Comment on above: Performed By: #### C BC ####[facility] [address] [place], [place] [address]Dr. Donis Mancini NEUT # 10.0 103/ul Critically high 1.4-6.5 [facility] Comment on above: Performed By: #### C BC ####[facility] Center [id number] [place], [place] [address]Dr. Donis Mancini Neutrophils/100 WBC (Bld) 77.3 % Critically high 43.0-75.0 [facility] Comment on above: Performed By: #### C BC ####[facility] [address] [place], [place] [address]Dr. Donis Live Platelet mean volume (Bld) [Entitic vol] 11.6 fL Normal 9.5-13.5 [facility] Comment on above: Performed By: #### C BC ####[facility] [address] [place] [id number]. Donis Live PLT 184 103/ul Normal 150-450 [facility] Comment on above: Performed By: #### C BC ####[facility] [address] [place], [place] [address]Dr. Laceyjavi Live RBC 4.51 106/ul Normal 4.20-5.40 [facility] Comment on above: Performed By: #### C BC ####[facility] [address] [place], [place] [id number]. Donis Mancini WBC 12.9 103/ul Critically high 4.0-11.0 [facility] Comment on above: Performed By: #### C BC ####[facility] [address] [place] [address]Dr. Donis Mancini LDHon 08-09-2022 LDH 167 U/L Normal 81-234 [facility] Comment on above: Performed By: #### C T/NGNA #### [facility] [address] [address] [address] Donis Mancini PROF 14(COMP METB)on 022 Albumin [Mass/Vol] 2.7 g/dL Critically low 3.4-5.[address] [facility] Comment on above: Performed By: #### C T/NGNA #### [facility] [address] [place] [address] Dr. Donis Mancini Albumin/Globulin [Mass ratio] 0.6 {ratio} Normal [facility] Comment on above: Performed By: #### C T/NGNA #### [facility] [address] [address] [address] Donis Mancini ALP [Catalytic activity/Vol] 176 U/L Critically high 46-116 [facility] Comment on above: Performed By: #### C T/NGNA #### [facility] [address] [address] [address] Donis Mancini ALT [Catalytic activity/Vol] 20 U/L Normal 14-59 [facility] Comment on above: Performed By: #### C T/NGNA #### [facility] [address] [address] [address] Donis Mancini Anion gap [Moles/Vol] 12.9 mmol/L Normal [facility] Comment on above: Performed By: #### C T/NGNA #### [facility] [address] [place] [address] Dr. Donis Mancini AST [Catalytic activity/Vol] 20 U/L Normal 15-37 [facility] Comment on above: Performed By: #### C T/NGNA #### [facility] [address] [address] [address] Donis Mancini Bilirubin [Mass/Vol] 0.1 mg/dL Critically low 0.2-1.0 [facility] Comment on above: Performed By: #### C T/NGNA #### [facility] [address] [address] [address] Donis Mancini Calcium [Mass/Vol] 9.1 mg/dL Normal 8.5-10.1 [facility] Comment on above: Performed By: #### C T/NGNA #### [facility] [address] [address] [address] Donis Mancini Chloride [Moles/Vol] 104 mmol/L Normal 98-107 [facility] Comment on above: Performed By: #### C T/NGNA #### [facility] [address] [place] [address] Dr. Donis Mancini CO2 [Moles/Vol] 22.9 mmol/L Normal 21.0-32.0 [facility] Comment on above: Performed By: #### C T/NGNA #### [facility] [address] [place] [address] Dr. Donis Mancini Creatinine [Mass/Vol] 0.43 mg/dL Critically low 0.55-1.02 [facility] Comment on above: Performed By: #### C T/NGNA #### [facility] [address] [place] [address] Dr. Donis Mancini EGFR-AF MONTENEGRIN >60 Normal >=60 [facility] Comment on above: Performed By: #### C T/NGNA #### [facility] [address] [place] [address] Dr. Donis Mancini EGFR-NON AF MONTENEGRIN >60 Normal >=60 [facility] Comment on above: Performed By: #### C T/NGNA #### [facility] [address] [place] [address] Dr. Donis Mancini Globulin (S) [Mass/Vol] 4.2 g/dL Normal [facility] Comment on above: Performed By: #### C T/NGNA #### [facility] [address] [address] [address] Donis Mancini Glucose [Mass/Vol] 95 mg/dL Normal 74-106 [facility] Comment on above: Performed By: #### C T/NGNA #### [facility] [address] [address] [address] Donis Mancini Potassium [Moles/Vol] 3.8 mmol/L Normal 3.5-5.1 [facility] Comment on above: Performed By: #### C T/NGNA #### [facility] [address] [address] [address] Donis Mancini Protein [Mass/Vol] 6.9 g/dL Normal 6.4-8.2 [facility] Comment on above: Performed By: #### C T/NGNA #### [facility] [address] [place] [address] Dr. Donis Mancini Sodium [Moles/Vol] 136 mmol/L Normal 136-145 [facility] Comment on above: Performed By: #### C T/NGNA #### [facility] [address] [place] [address] Dr. Donis Mancini Urea nitrogen [Mass/Vol] 10.0 mg/dL Normal 7.0-18.0 [facility] Comment on above: Performed By: #### C T/NGNA #### [facility] [address] [place] [address] Dr. Donis Mancini Urea nitrogen/Creatinine [Mass ratio] 23.3 mg/mg Normal [facility] Comment on above: Performed By: #### C T/NGNA #### [facility] [address] [place] [address] Dr. Donis Mancini URIC ACID SERUMon 08-09-2022 Urate [Mass/Vol] 3.6 mg/dL Normal 2.6-6.0 [facility] Comment on above: Performed By: #### C T/NGNA #### [facility] [address] [place] [address] Dr. Donis Mancini CBC AUTO DIFFon 08-07-2022 BASO # 0.0 103/ul Normal 0.0-0.1 [facility] Comment on above: Performed By: #### U AMIC #### [facility] [address] [place] [address] Dr. Donis Mancini Basophils/100 WBC (Bld) 0.2 % Normal 0.2-2.0 [facility] Comment on above: Performed By: #### U AMIC #### [facility] [address] [place] [address] Dr. Donis Mancini EO # 0.2 103/ul Normal 0.0-0.7 [facility] Comment on above: Performed By: #### U AMIC #### [facility] [address] [place] [address] Dr. Donis Mancini Eosinophils/100 WBC (Bld) 1.8 % Normal 0.9-7.0 [facility] Comment on above: Performed By: #### U AMIC #### [facility] [address] [place] [address] Dr. Donis Mancini Erythrocyte distribution width (RBC) [Ratio] 12.3 % Normal 11.0-15.0 [facility] Comment on above: Performed By: #### U AMIC #### [facility] [address] [place] [address] Dr. Donis Mancini Hematocrit (Bld) [Volume fraction] 45.7 % Normal 36.0-48.0 [facility] Comment on above: Performed By: #### U AMIC #### [facility] [address] [place] [address] Dr. Donis Mancini Hemoglobin (Bld) [Mass/Vol] 16.0 g/dL Normal 12.0-16.0 [facility] Comment on above: Performed By: #### U AMIC #### [facility] [address] [place] [address] Dr. Donis Mancini IG # 0.07 10e3/ul Critically high 0.00-0.03 [facility] Comment on above: Performed By: #### U AMIC #### [facility] [address] [place] [address] Dr. Donis Mancnii IG % 0.5 % Normal 0.0-0.5 [facility] Comment on above: Performed By: #### U AMIC #### [facility] [address] [place] [address] Dr. Donis Mancini LYMPH # 1.5 103/ul Normal 1.2-3.8 [facility] Comment on above: Performed By: #### U AMIC #### [facility] [address] [place] [address] Dr. Donis Mancini Lymphocytes/100 WBC (Bld) 11.2 % Critically low 20.5-60.0 [facility] Comment on above: Performed By: #### U AMIC #### [facility] [address] [place] [address] Dr. Donis Mancini MANUAL DIFF REQ NO Normal [facility] Comment on above: Performed By: #### U AMIC #### [facility] [address] [place] [address] Dr. Donis Mancini MCH (RBC) [Entitic mass] 32.0 pg Normal 26.7-34.0 [facility] Comment on above: Performed By: #### U AMIC #### [facility] [address] [place] [address] Dr. Donis Mancini MCHC (RBC) [Mass/Vol] 35.0 g/dL Normal 29.9-35.2 [facility] Comment on above: Performed By: #### U AMIC #### [facility] [address] [place] [address] Dr. Donis Mancini MCV (RBC) [Entitic vol] 91.4 fL Normal 81.0-99.0 [facility] Comment on above: Performed By: #### U AMIC #### [facility] [address] [place] [address] Dr. Donis Mancini MONO # 0.9 103/ul Critically high 0.3-0.8 [facility] Comment on above: Performed By: #### U AMIC #### [facility] [address] [place] [address] Dr. Donis Mancini Monocytes/100 WBC (Bld) 6.3 % Normal 1.7-12.0 [facility] Comment on above: Performed By: #### U AMIC #### [facility] [address] [address] [address] Donis Mancini NEUT # 10.9 103/ul Critically high 1.4-6.5 [facility] Comment on above: Performed By: #### U AMIC #### [facility] [address] [address] [address] Donis Mancini Neutrophils/100 WBC (Bld) 80.0 % Critically high 43.0-75.0 [facility] Comment on above: Performed By: #### U AMIC #### [facility] [address] [address] [address] Donis Mancini Platelet mean volume (Bld) [Entitic vol] 11.5 fL Normal 9.5-13.5 [facility] Comment on above: Performed By: #### U AMIC #### [facility] [address] [address] [address] Donis Mancini PLT 182 103/ul Normal 150-450 [facility] Comment on above: Performed By: #### U AMIC #### [facility] [address] [address] [address] Donis Mancini RBC 5.00 106/ul Normal 4.20-5.40 [facility] Comment on above: Performed By: #### U AMIC #### [facility] [address] [address] [address] Donis Mancini WBC 13.6 103/ul Critically high 4.0-11.0 [facility] Comment on above: Performed By: #### U AMIC #### [facility] [address] [address] [address] Donis Mancini LDHon 08-07-2022 LDH 171 U/L Normal 81-234 [facility] Comment on above: Performed By: #### C MP, URIC, LDH ####[facility] [address] [place] [address]Dr. Donis Mancini PROF 14(COMP METB)on 022 Albumin [Mass/Vol] 2.9 g/dL Critically low 3.4-5.[address] [facility] Comment on above: Performed By: #### C MP, URIC, LDH ####[facility] [address] [place] [address]Dr. Donis Mancini Albumin/Globulin [Mass ratio] 0.6 {ratio} Normal [facility] Comment on above: Performed By: #### C MP, URIC, LDH ####[facility] [address] [place] [address]Dr. Donis Mancini ALP [Catalytic activity/Vol] 192 U/L Critically high 46-116 [facility] Comment on above: Performed By: #### C MP, URIC, LDH ####[facility] [address] [place] [address]Dr. Donis Mancini ALT [Catalytic activity/Vol] 23 U/L Normal 14-59 [facility] Comment on above: Performed By: #### C MP, URIC, LDH ####[facility] [address] [place] [address]Dr. Donis Mancini Anion gap [Moles/Vol] 14.4 mmol/L Normal [facility] Comment on above: Performed By: #### C MP, URIC, LDH ####[facility] [address] [place] [address]Dr. Donis Mancini AST [Catalytic activity/Vol] 23 U/L Normal 15-37 [facility] Comment on above: Performed By: #### C MP, URIC, LDH ####[facility] [address] [place] [address]Dr. Donis Mancini Bilirubin [Mass/Vol] 0.2 mg/dL Normal 0.2-1.0 [facility] Comment on above: Performed By: #### C MP, URIC, LDH ####[facility] [address] [place] [address]Dr. Donis Mancini Calcium [Mass/Vol] 9.4 mg/dL Normal 8.5-10.1 [facility] Comment on above: Performed By: #### C MP, URIC, LDH ####[facility] [address] [place] [address]Dr. Donis Mancini Chloride [Moles/Vol] 104 mmol/L Normal 98-107 [facility] Comment on above: Performed By: #### C MP, URIC, LDH ####[facility] [address] [place] [address]Dr. Donis Mancini CO2 [Moles/Vol] 21.7 mmol/L Normal 21.0-32.0 [facility] Comment on above: Performed By: #### C MP, URIC, LDH ####[facility] [address] [place] [address]Dr. Donis Mancini Creatinine [Mass/Vol] 0.46 mg/dL Critically low 0.55-1.02 [facility] Comment on above: Performed By: #### C MP, URIC, LDH ####[facility] [address] [place], [place] [address]Dr. Donis Mancini EGFR-AF MONTENEGRIN >60 Normal >=60 [facility] Comment on above: Performed By: #### C MP, URIC, LDH ####[facility] [address] [place], [place] [address]Dr. Donis Mancini EGFR-NON AF MONTENEGRIN >60 Normal >=60 [facility] Comment on above: Performed By: #### C MP, URIC, LDH ####[facility] [address] [place] [address]Dr. Donis Mancini Globulin (S) [Mass/Vol] 4.6 g/dL Normal [facility] Comment on above: Performed By: #### C MP, URIC, LDH ####[facility] [address] [place] [address]Dr. Donis Mancini Glucose [Mass/Vol] 89 mg/dL Normal 74-106 [facility] Comment on above: Performed By: #### C MP, URIC, LDH ####[facility] [address] [place], [place] [address]Dr. Donis Mancini Potassium [Moles/Vol] 4.1 mmol/L Normal 3.5-5.1 [facility] Comment on above: Performed By: #### C MP, URIC, LDH ####[facility] [address] [place] [address]Dr. Donis Mancini Protein [Mass/Vol] 7.5 g/dL Normal 6.4-8.2 [facility] Comment on above: Performed By: #### C MP, URIC, LDH ####[facility] [address] [place] [address]DrGene Mancini Sodium [Moles/Vol] 136 mmol/L Normal 136-145 [facility] Comment on above: Performed By: #### C MP, URIC, LDH ####[facility] [address] [place] [address]Dr. Donis Mancini Urea nitrogen [Mass/Vol] 8.0 mg/dL Normal 7.0-18.0 [facility] Comment on above: Performed By: #### C MP, URIC, LDH ####[facility] [address] [place] [address]Dr. Donis Mancini Urea nitrogen/Creatinine [Mass ratio] 17.4 mg/mg Normal [facility] Comment on above: Performed By: #### C MP, URIC, LDH ####[facility] [address] [place], [place] [address]DrGene Mancini PROTIMEon 08-07-2022 INR Coag (PPP) [Relative time] {INR} Normal [facility] Comment on above: Performed By: #### U AMIC #### [facility] [address] [place] [address] Dr. Donis Mancini INR GUIDELINES SEE BELOW Normal [facility] Comment on above: Result Comment: NICCI RED INR: 2.0 - 3.0 CONDITIONS NOT LISTED BELOW 2.5 - 3.5 FOR PROSTHETIC HEART VALVE REPLACEMENT 2.5 - 3.5 RECURRENT THROMBOSIS Performed By: #### U AMIC #### [facility] [address] [address] [address] Donis Mancini PT Coag (PPP) [Time] 9.8 s Normal 9.0-11.6 [facility] Comment on above: Performed By: #### U AMIC #### [facility] [address] [place] [address] Dr. Donis Mancini PTTon 08-07-2022 aPTT Coag (Bld) [Time] 28.5 s Normal 22.3-36.2 [facility] Comment on above: Performed By: #### U AMIC #### [facility] [address] [place] [address] Dr. Donis Mancini UA (CLEAN/CATCH) DEMAND PLANNER/MICRO I F IND.on 08-07-2022 Bilirubin Ql (U) Negative Normal NEGATIVE [facility] Comment on above: Performed By: #### U AMIC #### [facility] [address] [place] [address] Dr. Donis Mancini Clarity (U) CLEAR Normal CLEAR [facility] Comment on above: Performed By: #### U AMIC #### [facility] [address] [place] [address] Dr. Donis Mancini Color (U) LT. YELLOW Normal YELLOW [facility] Comment on above: Performed By: #### U AMIC #### [facility] [address] [place] [address] Dr. Donis Mancini Glucose Ql (U) Negative Normal NEGATIVE [facility] Comment on above: Performed By: #### U AMIC #### [facility] [address] [place] [address] Dr. Donis Mancini Hemoglobin Ql (U) Negative Normal NEGATIVE [facility] Comment on above: Performed By: #### U AMIC #### [facility] [address] [place] [address] Dr. Donis Mancini Ketones Ql (U) Negative Normal NEGATIVE [facility] Comment on above: Performed By: #### U AMIC #### [facility] [address] [place] [address] Dr. Donis Mancini LEUKOCYTES Negative Normal NEGATIVE [facility] Comment on above: Performed By: #### U AMIC #### [facility] [address] [place] [address] Dr. Donis Mancini Nitrite Ql (U) Negative Normal NEGATIVE [facility] Comment on above: Performed By: #### U AMIC #### [facility] [address] [address] [address] Donis Mancini pH (U) 7.0 [pH] Normal 5-9 [facility] Comment on above: Performed By: #### U AMIC #### [facility] [address] [address] [address] Donis Mancini SPEC GRAVITY <=1.005 Abnormal 1.005-<=1.[address] [facility] Comment on above: Performed By: #### U AMIC #### [facility] [address] [address] [address] Donis Mancini UA PROTEIN Negative Normal NEGATIVE/ TRACE [facility] Comment on above: Performed By: #### U AMIC #### [facility] [address] [address] [address] Donis Mancini UR MICRO IND NOT INDICATED Normal [facility] Comment on above: Performed By: #### U AMIC #### [facility] [address] [address] [address] Donis Mancini Urobilinogen Qn (U) 0.2 {Sarah'U}/dL Normal 0.2 - 1. 0 [facility] Comment on above: Performed By: #### U AMIC #### [facility] [address] [address] [address] Donis Mancini URIC ACID SERUMon 08-07-2022 Urate [Mass/Vol] 3.8 mg/dL Normal 2.6-6.0 [facility] Comment on above: Performed By: #### C MP, URIC, LDH ####[facility] [address] [place] [address]Dr. Donis Mancini URINE T PROTEIN CREAT RATIOo n 08-07-2022 UR TOTAL PROTEIN <6.0 Normal <=12.0 [facility] Comment on above: Performed By: #### C T/NGNA #### [facility] [address] [address] [address] Donis Mancini URINE CREAT 13.45 mg/dL Critically low 20.00-300.00 [facility] Comment on above: Performed By: #### C T/NGNA #### [facility] [address] [address] [address] Donis Mancini US PREG BIOPHY W [...] COCO STERN Date: 2022-08-01 08:31 Normal [facility] CHLAMYDIA/GONOCOCCUS INESSA (SW AB/URINE/PAPon 07-31-2022 Chlamydia trachomatis, INESSA Negative Normal Negative [facility] Comment on above: Performed By: #### C T/NGNA #### [facility] [address] [place] [address] Dr. Donis Mancini Neisseria gonorrhoeae, INESSA Negative Normal Negative [facility] Comment on above: Performed By: #### C T/NGNA #### [facility] [address] [place] [address] Dr. Donis Mancini VAGINITIS/VAGINOSIS DNA PROB Domenic 07-31-2022 Mariam species Negative Normal Negative [facility] Comment on above: Performed By: #### V AGINT ####[facility] [address] [place] [address]Dr. Donis Mancini Gardnerella vaginalis Negative Normal Negative [facility] Comment on above: Performed By: #### V AGINT ####[facility] [address] [place] [address]Dr. Donis Mancini Trichomonas vaginalis Negative Normal Negative [facility] Comment on above: Performed By: #### V AGINT ####[facility] [address] [place] [address]Dr. Donis Mancini GROUP B STREP CULTUREon S. agalactiae Ag Ql (Unsp spec) Culture Observations: NEGATIVE FOR GROUP B STREPTOCOCCUS. Normal [facility] Comment on above: Performed By: #### G BSCX #### [facility] [address] [address] [address] Donis Mancini US PREG BIOPHY W [...] by: COCO STERN Date: 2022-07-25 09:41 Normal [facility] US PREG GROWTHon 07-11-2022 US PREG GROWTH [...] by: ESTEFANY BENNETT Date: 2022-07-11 19:28 Normal [facility] Covid-19 PCR (CVDTB)on 06-26 SARS-CoV-2 (COVID-19) RNA INESSA+probe Ql (Unsp spec) Not detected Normal NOT DETECTED [facility] Comment on above: Result [...] for this test is supported by the [place] of [employer] and Human Service's declaration that [...] used). Performed By: #### C T/NGNA #### [facility] [address] [address] [address] Donis Mancini GTT 3 HR PREGon 06-03-2022 Glucose [Mass/Vol] 94 mg/dL Normal 74-106 [facility] Comment on above: Performed By: #### U AMIC #### [facility] [address] [address] [address] Donis Mancini Glucose [Mass/Vol] 147 mg/dL Normal [facility] Comment on above: Performed By: #### U AMIC #### [facility] [address] [address] [address] Donis Mancini Glucose [Mass/Vol] 159 mg/dL Normal [facility] Comment on above: Performed By: #### U AMIC #### [facility] [address] [address] [address] Donis Mancini Glucose [Mass/Vol] 151 mg/dL Normal [facility] Comment on above: Performed By: #### U AMIC #### [facility] [address] [place] [address] Dr. Donis Mancini GLUCOSE - 1HRon 05-21-2022 Glucose [Mass/Vol] 141 mg/dL Critically high 74-106 T [facility] Comment on above: Performed By: #### U AMIC #### [facility] [address] [place] [address] Dr. Donis Mancini HEMOGRAM AND PLATELon 2021 Hematocrit (Bld) [Volume fraction] 39.1 % Normal 36.0-48.0 [facility] Comment on above: Performed By: #### U AMIC #### [facility] [address] [place] [address] Dr. Donis Mancini Hemoglobin (Bld) [Mass/Vol] 13.1 g/dL Normal 12.0-16.0 [facility] Comment on above: Performed By: #### U AMIC #### [facility] [address] [place] [address] Dr. Donis Mancini MCH (RBC) [Entitic mass] 32.3 pg Normal 26.7-34.0 [facility] Comment on above: Performed By: #### U AMIC #### [facility] [address] [place] [address] Dr. Donis Mancini MCHC (RBC) [Mass/Vol] 33.5 g/dL Normal 29.9-35.2 [facility] Comment on above: Performed By: #### U AMIC #### [facility] [address] [place] [address] Dr. Donis Mancini MCV (RBC) [Entitic vol] 96.5 fL Normal 81.0-99.0 [facility] Comment on above: Performed By: #### U AMIC #### [facility] [address] [place] [address] Dr. Donis Mancini PLT 220 103/ul Normal 150-450 [facility] Comment on above: Performed By: #### U AMIC #### [facility] [facility] [address] [place] [address] Dr. Donis Mancini RBC 4.05 106/ul Critically low 4.20-5.40 [facility] Comment on above: Performed By: #### U AMIC #### [facility] [address] [address] [address] Donis Mancini WBC 12.8 103/ul Critically high 4.0-11.0 [facility] Comment on above: Performed By: #### U AMIC #### [facility] [id number] Donis Mancini US PREG BIOPHYSICAL NO [...] ESTEFANY BENNETT Date: 2022-05-11 06:25 Normal [facility] CULTURE URINEon 05-10-2022 CULTURE URINE Culture Observations: MODERATE GROWTH OF MIXED GENITAL RAMBO. NO POTENTIAL PATHOGENS SEEN. Normal [facility] Comment on above: Performed By: #### U RCX #### [facility] [address] [address] [address] Donis Mancini UA RANDOM W/MICROSCOPICon BACTERIA LARGE Abnormal NONE SEEN [facility] Comment on above: Performed By: #### U AMIC ####[facility] [address] [address]Dr. Donis Mancini Bilirubin Ql (U) Negative Normal NEGATIVE [facility] Comment on above: Performed By: #### U AMIC ####[facility] [address] [address]Dr. Donis Mancini CAST NONE SEEN Normal NONE SEEN [facility] Comment on above: Performed By: #### U AMIC ####[facility] [address] [id number]. Donis Mancini Clarity (U) CLEAR Normal CLEAR [facility] Comment on above: Performed By: #### U AMIC ####[facility] [address] [address]Dr. Donis Mancini Color (U) YELLOW Normal YELLOW [facility] Comment on above: Performed By: #### U AMIC ####[facility] [address] [address]Dr. Donis Mancini Crystals LM Nom (Urine sed) NONE SEEN Normal NONE SEEN [facility] Comment on above: Performed By: #### U AMIC ####[facility] [address] [address]Dr. Donis Mancini Epithelial cells LM Ql (Urine sed) MODERATE Abnormal NONE SEEN /RARE [facility] Comment on above: Performed By: #### U AMIC ####[facility] [address] [address]Dr. Donis Mancini Glucose Ql (U) 250 mg/dl Abnormal NEGATIVE [facility] Comment on above: Performed By: #### U AMIC ####[facility] [address] [place], [place] [address]Dr. Donis Mancini Hemoglobin Ql (U) TRACE-INTACT Abnormal NEGATIVE [facility] Comment on above: Performed By: #### U AMIC ####[facility] [address] [place], [place] [address]Dr. Donis Mancini Ketones Ql (U) Negative Normal NEGATIVE [facility] Comment on above: Performed By: #### U AMIC ####[facility] [address] [place], [place] [address]Dr. Donis Mancini LEUKOCYTES LARGE Abnormal NEGATIVE [facility] Comment on above: Performed By: #### U AMIC ####[facility] [address] [place], [place] [address]Dr. Donis Mancini MUCOUS NONE SEEN Normal NONE SEEN [facility] Comment on above: Performed By: #### U AMIC ####[facility] [address] [address]Dr. Donis Mancini Nitrite Ql (U) Negative Normal NEGATIVE [facility] Comment on above: Performed By: #### U AMIC ####[facility] [address] [address]Dr. Donis Mancini pH (U) 6.0 [pH] Normal 5-9 [facility] Comment on above: Performed By: #### U AMIC ####[facility] [address] [address]Dr. Donis Mancini RBC 2-5 Abnormal 0-2 [facility] Comment on above: Performed By: #### U AMIC ####[facility] [address] [address]Dr. Donis Mancini SPEC GRAVITY <=1.005 Abnormal 1.005-<=1.025 [facility] Comment on above: Performed By: #### U AMIC ####[facility] [address] [place], [place] [address]Dr. Donis Mancini UA PROTEIN Negative Normal NEGATIVE/ TRACE [facility] Comment on above: Performed By: #### U AMIC ####[facility] Oxax[address]huiw[address] [place], [place] [address]Dr. Donis Mancini Urobilinogen Qn (U) 0.2 {Sarah'U}/dL Normal 0.2 - 1. 0 [facility] Comment on above: Performed By: #### U AMIC ####[facility] F[address] [place], [place] [address]Dr. Donis Mancini WBC 10-20 Abnormal NONE SEEN [facility] Comment on above: Performed By: #### U AMIC ####[facility] M[address] [place], [place] [address]Dr. Donis Mancini CULTURE URINEon 04-27-2022 CULTURE URINE Culture Observations: LIGHT GROWTH OF MIXED GENITAL RAMBO. NO POTENTIAL PATHOGENS SEEN. Normal [facility] Comment on above: Performed By: #### U RCX ####[facility] Y[address] [place], [place] [address]Dr. Donis Mancini UA (CLEAN/CATCH) DEMAND PLANNER/MICRO I F IND.on 04-27-2022 Bilirubin Ql (U) Negative Normal NEGATIVE [facility] Comment on above: Performed By: #### U ACSIND, UMICRO ####[facility] [address] [address]Dr. Donis Mancini Clarity (U) CLEAR Normal CLEAR [facility] Comment on above: Performed By: #### U ACSWENDY UMICRO ####[facility] [address] [address]Dr. Donis Mancini Color (U) LT. YELLOW Normal YELLOW [facility] Comment on above: Performed By: #### U ACSWENDY UMICRO ####[facility] [address] [address]Dr. Donis Mancini Glucose Ql (U) Negative Normal NEGATIVE [facility] Comment on above: Performed By: #### U ACSWENDY ICRO ####[facility] [address] [address]Dr. Donis Mancini Hemoglobin Ql (U) Negative Normal NEGATIVE [facility] Comment on above: Performed By: #### U ACSWENDY ICRO ####[facility] [address] [place], [place] [address]Dr. Donis Mancini Ketones Ql (U) Negative Normal NEGATIVE [facility] Comment on above: Performed By: #### U ACSWENDY ICRO ####[facility] [address] [place], [place] [address]Dr. Donis Mancini LEUKOCYTES SMALL Abnormal NEGATIVE [facility] Comment on above: Performed By: #### U ACSWENDY ICRO ####[facility] [address] [place], [place] [address]Dr. Donis Mancini Nitrite Ql (U) Negative Normal NEGATIVE [facility] Comment on above: Performed By: #### U ACSWENDY ICRO ####[facility] [address] [address]Dr. Donis Mancini pH (U) 7.0 [pH] Normal 5-9 [facility] Comment on above: Performed By: #### U ACSWENDY UMICRO ####[facility] [address] [place], [place] [address]Dr. Donis Mancini SPEC GRAVITY 1.015 Normal 1.005-<=1.025 [facility] Comment on above: Performed By: #### U ACSWENDY, UMICRO ####[facility] [address] [address]Dr. Donis Mancini UA PROTEIN Negative Normal NEGATIVE/ TRACE [facility] Comment on above: Performed By: #### U ACSIND, UMICRO ####[facility] [address] [address]Dr. Donis Mancini UR MICRO IND INDICATED Normal [facility] Comment on above: Performed By: #### U ACSWENDY, UMICRO ####[facility] [address] [address]Dr. Donis Mancini Urobilinogen Qn (U) 0.2 {Sarah'U}/dL Normal 0.2 - 1. 0 [facility] Comment on above: Performed By: #### U ACSWENDY UMICRO ####[facility] [address] [place], [place] [address]Dr. Donis Mancini URINE MICROSCOPIC ONLYon BACTERIA MODERATE Abnormal NONE SEEN [facility] Comment on above: Performed By: #### U ACSWENDY ICRO ####[facility] [address] [place], [place] [address]Dr. Donis Mancini Bacteria identified Cx Nom (U) INDICATED Normal [facility] Comment on above: Performed By: #### U ACSWENDY, UMICRO ####[facility] [address] [address]Dr. Donis Mancini CAST NONE SEEN Normal NONE SEEN [facility] Comment on above: Performed By: #### U ACSWENDY, UMICRO ####[facility] [address] [address]Dr. Donis Mancini Crystals LM Nom (Urine sed) NONE SEEN Normal NONE SEEN [facility] Comment on above: Performed By: #### U ACSIND, UMICRO ####[facility] [address] [address]Dr. Donis aMncini Epithelial cells LM Ql (Urine sed) MODERATE Abnormal NONE SEEN /RARE [facility] Comment on above: Performed By: #### U ACSWENDY UMICRO ####[facility] [address] [place], [place] [address]Pf. Donis Mancini MUCOUS NONE SEEN Normal NONE SEEN [facility] Comment on above: Performed By: #### U NELSON UMICRO ####[facility] [address] [place], [place] [address]Uu. Donis Mancini RBC NONE SEEN Abnormal 0-2 [facility] Comment on above: Performed By: #### U ACSWENDY UMICRO ####[facility] [address] [place], [place] [address]Ao. Donis Mancini WBC 2-5 Abnormal NONE SEEN [facility] Comment on above: Performed By: #### U ACSWENDY UMICRO ####[facility] [address] [place], [place] [address]Kz. Donis Mancini US KIDNEYSon 04-27-2022 US KIDNEYS [...] ANDREAS AN Date: 2022-04-27 17:48 Normal [facility] CULTURE URINEon 04-16-2022 CULTURE URINE [...] Trimethoprim/Sulfame thoxazole <=20 S F Normal [facility] Comment on above: Performed By: #### U RCX #### [facility] [address] [place] [address] Dr. Donis Mancini US PREG ANATOMY SINGLEon [...] ESTEFANY BENNETT Date: 2022-04-12 22:22 Normal [facility] UA RANDOM W/MICROSCOPICon BACTERIA SMALL Abnormal NONE SEEN [facility] Comment on above: Performed By: #### U AMIC #### [facility] [address] [place] [address] Dr. Donis Mancini Bilirubin Ql (U) Negative Normal NEGATIVE [facility] Comment on above: Performed By: #### U AMIC #### [facility] [address] [address] [address] Donis Mancini CAST NONE SEEN Normal NONE SEEN [facility] Comment on above: Performed By: #### U AMIC #### [facility] [address] [address] [address] Donis Mancini Clarity (U) CLEAR Normal CLEAR [facility] Comment on above: Performed By: #### U AMIC #### [facility] [address] [place] [address] Dr. Donis Mancini Color (U) LT. YELLOW Normal YELLOW [facility] Comment on above: Performed By: #### U AMIC #### [facility] [address] [address] [address] Donis Mancini Crystals LM Nom (Urine sed) NONE SEEN Normal NONE SEEN [facility] Comment on above: Performed By: #### U AMIC #### [facility] [address] [place] [address] Dr. Donis Mancini Epithelial cells LM Ql (Urine sed) FEW Abnormal NONE SEEN /RARE [facility] Comment on above: Performed By: #### U AMIC #### [facility] [address] [address] [address] Donis Mancini Glucose Ql (U) Negative Normal NEGATIVE [facility] Comment on above: Performed By: #### U AMIC #### [facility] [address] [address] [address] Donis Mancini Hemoglobin Ql (U) Negative Normal NEGATIVE [facility] Comment on above: Performed By: #### U AMIC #### [facility] [address] [place] [address] Dr. Donis Mancini Ketones Ql (U) Negative Normal NEGATIVE [facility] Comment on above: Performed By: #### U AMIC #### [facility] [address] [place] [address] Dr. Donis Mancini LEUKOCYTES LARGE Abnormal NEGATIVE [facility] Comment on above: Performed By: #### U AMIC #### [facility] [address] [place] [address] Dr. Donis Mancini MUCOUS NONE SEEN Normal NONE SEEN [facility] Comment on above: Performed By: #### U AMIC #### [facility] [address] [address] [address] Donis Mancini Nitrite Ql (U) Negative Normal NEGATIVE [facility] Comment on above: Performed By: #### U AMIC #### [facility] [address] [place] [address] Dr. Donis Mancini pH (U) 5.5 [pH] Normal 5-9 [facility] Comment on above: Performed By: #### U AMIC #### [facility] [address] [place] [address] Dr. Donis Mancini RBC 0-2 Normal 0-2 [facility] Comment on above: Performed By: #### U AMIC #### [facility] [address] [place] [address] Dr. Donis Mancini SPEC GRAVITY <=1.005 Abnormal 1.005-<=1.025 [facility] Comment on above: Performed By: #### U AMIC #### [facility] [address] [address] [address] Donis Mancini UA PROTEIN Negative Normal NEGATIVE/ TRACE [facility] Comment on above: Performed By: #### U AMIC #### [facility] [address] [place] [address] Dr. Donis Mancini Urobilinogen Qn (U) 0.2 {Sarah'U}/dL Normal 0.2 - 1. 0 [facility] Comment on above: Performed By: #### U AMIC #### [facility] [address] [place] [address] Dr. Donis Mancini WBC 5-10 Abnormal NONE SEEN [facility] Comment on above: Performed By: #### U AMIC #### [facility] [address] [place], [place] [address] Dr. Donis Mancini HEP B SURFACE ANTIGEN SCREEN on 01-23-2022 HBsAg Screen Negative Normal Negative [facility] Comment on above: Performed By: #### U AMIC #### [facility] [id number] Donis Mancini HEPATITIS C VIRUS AB W/ REFL EX QUANTon 01-23-2022 HCV AB 0.1 s/co ratio Normal 0.0-0.9 [facility] Comment on above: Performed By: #### H CVPCRR ####[facility] [address] [address]Dr. Donis Mancini Interpretation: Comment Normal [facility] Comment on above: Result Comment: Nega tive Not infected with HCV, unless recent infection is suspected or other evidence exists to indicate HCV infection. Performed By: #### H CVPCRR ####[facility] [address] [id number]. Donis Mancini HIV 1 AND 2 WITH REFLEXon HIV Screen 4th Generation wRfx Non-Reactive Normal Non Reactive [facility] Comment on above: Result Comment: HIV Negative HIV-1/HIV-2 antibodies and HIV-1 p24 antigen were NOT detected. There is no laboratory evidence of HIV infection. Performed By: #### H IV12 ####[facility] [address] [id number]. Donis Mancini RPR QUANTon 01-23-2022 Rapid Plasma Reagin, Quant Non-Reactive Normal NonRea<1:1 [facility] Comment on above: Result Comment: Plea Note: This test does not meet current guidelines for screening and diagnosis of syphilis. This test is intended for following treatment response in patients being treated for syphilis infection. To screen for syphilis infection, a reflex cascade that includes both RPR and a treponema-specific assay should be utilized, such as Treponema pallidum (Syphilis) Screening Reynolds (220291) or Rapid Plasma Reagin (RPR) Test With Reflex to Quantitative RPR and Confirmatory Treponema pallidum Antibodies (016513). Performed By: #### R PRQ ####[facility] [address] [address]Dr. Donis Mancini RUBELLA AB IGGon 01-23-2022 Rubella Antibodies, IgG 1.60 index Normal Immune >0.99 [facility] Comment on above: Result Comment: Non- immune <0.90 Equivocal 0.90 - 0.99 Immune >0.99 Performed By: #### U AMIC #### [facility] [address] [address] [address] Donis Mancini CBC AUTO DIFFon 01-22-2022 BASO # 0.1 103/ul Normal 0.0-0.1 [facility] Comment on above: Performed By: #### U AMIC #### [facility] [address] [place] [address] Dr. Donis Mancini Basophils/100 WBC (Bld) 0.5 % Normal 0.2-2.0 [facility] Comment on above: Performed By: #### U AMIC #### [facility] [address] [place] [address] Dr. Donis Mancini EO # 0.6 103/ul Normal 0.0-0.7 [facility] Comment on above: Performed By: #### U AMIC #### [facility] [address] [address] [address] Donis Mancini Eosinophils/100 WBC (Bld) 5.1 % Normal 0.9-7.0 [facility] Comment on above: Performed By: #### U AMIC #### [facility] [address] [place] [address] Dr. Donis Mancini Erythrocyte distribution width (RBC) [Ratio] 12.0 % Normal 11.0-15.0 [facility] Comment on above: Performed By: #### U AMIC #### [facility] [address] [place] [address] Dr. Donis Mancini Hematocrit (Bld) [Volume fraction] 45.8 % Normal 36.0-48.0 [facility] Comment on above: Performed By: #### U AMIC #### [facility] [address] [address] [address] Donis Mancini Hemoglobin (Bld) [Mass/Vol] 15.3 g/dL Normal 12.0-16.0 [facility] Comment on above: Performed By: #### U AMIC #### [facility] [address] [address] [address] Donis Mancini IG # 0.03 10e3/ul Normal 0.00-0.03 [facility] Comment on above: Performed By: #### U AMIC #### [facility] [address] [address] [address] Donis Mancini IG % 0.3 % Normal 0.0-0.5 [facility] Comment on above: Performed By: #### U AMIC #### [facility] [address] [address] [address] Donis Mancini LYMPH # 1.7 103/ul Normal 1.2-3.8 [facility] Comment on above: Performed By: #### U AMIC #### [facility] [address] [address] [address] Donis Mancini Lymphocytes/100 WBC (Bld) 15.9 % Critically low 20.5-60.0 [facility] Comment on above: Performed By: #### U AMIC #### [facility] [address] [address] [address] Donis Mancini MANUAL DIFF REQ NO Normal [facility] Comment on above: Performed By: #### U AMIC #### [facility] [address] [address] [address] Donis Mancini MCH (RBC) [Entitic mass] 31.5 pg Normal 26.7-34.0 [facility] Comment on above: Performed By: #### U AMIC #### [facility] [address] [address] [address] Donis Mancini MCHC (RBC) [Mass/Vol] 33.4 g/dL Normal 29.9-35.2 [facility] Comment on above: Performed By: #### U AMIC #### [facility] [address] [address] [address] Donis Mancini MCV (RBC) [Entitic vol] 94.2 fL Normal 81.0-99.0 [facility] Comment on above: Performed By: #### U AMIC #### [facility] [address] [address] [address] Donis Mancini MONO # 0.6 103/ul Normal 0.3-0.8 [facility] Comment on above: Performed By: #### U AMIC #### [facility] [address] [address] [address] Donis Mancini Monocytes/100 WBC (Bld) 5.8 % Normal 1.7-12.0 [facility] Comment on above: Performed By: #### U AMIC #### [facility] [address] [address] [address] Donis Mancini NEUT # 7.8 103/ul Critically high 1.4-6.[address] [facility] Comment on above: Performed By: #### U AMIC #### [facility] [address] [address] [address] Donis Mancini Neutrophils/100 WBC (Bld) 72.4 % Normal 43.0-75.0 [facility] Comment on above: Performed By: #### U AMIC #### [facility] [address] [address] [address] Donis Mancini Platelet mean volume (Bld) [Entitic vol] 9.9 fL Normal 9.5-13.5 [facility] Comment on above: Performed By: #### U AMIC #### [facility] [address] [address] [address] Donis Mancini PLT 281 103/ul Normal 150-450 [facility] Comment on above: Performed By: #### U AMIC #### [facility] [address] [address] [address] Donis Mancini RBC 4.86 106/ul Normal 4.20-5.40 [facility] Comment on above: Performed By: #### U AMIC #### [facility] [address] [address] [address] Donis Mancini WBC 10.8 103/ul Normal 4.0-11.0 [facility] Comment on above: Performed By: #### U AMIC #### [facility] [address] [address] [address] Donis Mancini CULTURE URINEon 01-22-2022 CULTURE URINE Culture Observations: LIGHT GROWTH OF MIXED GENITAL RAMBO. NO POTENTIAL PATHOGENS SEEN. Normal [facility] Comment on above: Performed By: #### U RCX #### [facility] [address] [place] [address] Dr. Donis Mancini GLYCOHEMOGLOBIN A1Con 2021 ADA RECOMMENDATION SEE BELOW Normal [facility] Comment on above: Result Comment: ADA RECOMMENDED LIMIT 4.0 - 6.0 ADA THERAPEUTIC TARGET < 7.0 ACTION SUGGESTED > 7.0 Performed By: #### A 1C ####[facility] [address] [place], [place] [address]Dr. Donis Mancini Glucose [Mass/Vol] 100 mg/dL Normal [facility] Comment on above: Performed By: #### A 1C ####[facility] [address] [place], [place] [address]Dr. Donis Mancini HbA1c (Bld) [Mass fraction] 5.1 % Normal 4.5-6.2 [facility] Comment on above: Performed By: #### A 1C ####[facility] [address] [place] [address]DrGene Mancini SEAN BOX TEST PT SEND OUTo n 01-22-2022 SENT TO REF LAB 01/22/2022 Normal [facility] Comment on above: Performed By: #### N BOX ####[facility] [address] [place], [place] [address]Dr. Donis Mancini TYPE AND SCREENon 01-22-2022 TYPE AND SCREEN Negative Normal [facility] Comment on above: Performed By: #### T NS #### [facility] [address] [place] [address] Dr. Donis Mancini US PREG TVon 01-17-2022 [...] by: COCO STERN Date: 2022-01-17 09:34 Normal [facility] Provider Letteron 04-06-2021 Provider Letter April 06, 2021 Dear Vimal, We have been trying to reach you with no success. It is important that you return our call regarding your appointment upon receiving this letter. Also, at the time of your call, please provide us with your current information. Thank you for your prompt attention to this matter. Sincerely, [facility] [address] [place] [address] Normal [facility] Ambulatory Clinical Summaryo n 03-10-2021 Ambulatory Clinical Summary {[id number] Normal [facility] Ambulatory Clinical Summaryo n 03-05-2021 Ambulatory Clinical Summary {[id number]}CD:[id number] Normal [facility] Gynecology Phone Visit- Tele healthon 03-05-2021 [...] only communication with the patient located at [address] [place] [phone], with no one else. If it is [...] Ordered: Telephone Est 5 to 10 minutes [id number] Follow-up With When Contact Information Joycelyn RENNER In [address] [place] [address]- Additional Instructions: Problem List/Past Medical History Ongoing Contraception management Visit for routine genetic counselor exam Historical Blood transfusion Lead poisoning Procedure/Surgical [...] hepatitis B adult vaccine 2001 Recorded Normal [facility] Comment on above: Result Comment: Elec tronically Signed By: ISABEL JACOBS, Joycelyn\.br\Date and Time Signed: 03/05/21 16:35 EDT Ambulatory Clinical Summaryo n 03-04-2021 Ambulatory Clinical Summary {[id number]}CD:[id number] Normal [facility] Coding Summary.on 12-18-2020 Coding Summary. CODING DATE: 12/18/2020 FINAL [facility] STATUS: Home (Routine DC) PAYOR: [place] ADMIT DX: REASON FOR VISIT DX: U07.1 [...] CphT Date Saved: 12/18/2020 12:44 pm Normal [facility] Physician Orderon 12-16-2020 Physician Order [id number] Normal [facility] Rapid COVID Antigen (MC)on 12-16-2020 Rapid COV Int NEG Ctl Pass Normal [facility] Comment on above: Performed By: #### 2 [id number] #### [facility] [address] [place] [address] Rapid COV Int POS Ctl Pass Normal [facility] Comment on above: Performed By: #### 2 [id number] #### [facility] [address] [place] [address] SARS-CoV-2 (COVID-19) RNA INESSA+probe Ql (Unsp spec) Detected Abnormal Not Detected [facility] Comment on above: Result Comment: Left a message for callback. 12/16/2020 11:42:47 EDT Results faxed to infection control. The Duog[employer] Veritor? System for Rapid Detection of SARS-CoV-2 [...] under an Emergency Use Authorization. In the [facility], this test has not been FDA cleared [...] or revoked sooner. Performed By: #### 2 [id number] #### [facility] [address] [place] [address] Employed in Healthcare Unknown Normal [facility] Comment on above: Performed By: #### 2 [id number] #### [facility] [address] [place] [address] First Test Unknown [facility] Comment on above: Performed By: #### 2 [id number] #### [facility] [address] [place] [address] Hospitalized? NO Normal [facility] Comment on above: Performed By: #### 2 [id number] #### [facility] [address] [place] [address] ICU NO Normal [facility] Comment on above: Performed By: #### 2 [id number] #### [facility] [address] [place] [address] ? Unknown Normal [facility] Comment on above: Performed By: #### 2 [id number] #### [facility] [address] [place] [id number] Resides in a Congregate Care Setting Unknown Normal [facility] Comment on above: Performed By: #### 2 [id number] #### [facility] [address] [place] [address] Symptomatic as defined by CDC YES Normal [facility] Comment on above: Performed By: #### 2 [id number] #### [facility] [address] [place] [address] Ambulatory Clinical Summaryo n 11-25-2020 Ambulatory Clinical Summary {[id number]}CD:[id number] Normal [facility] Vital Signs Date Time Vital Sign Value Performing Clinician Facility 06-29-2024 09:12-0400 Body mass index (BMI) [Ratio] 24.58 kg/m2 [facility] Nurse [facility] 06-29-2024 09:12-0400 Body weight 62.94 kg [facility] Nurse [facility] 06-29-2024 09:12-0400 Diastolic blood pressure 72 mm[Hg] [facility] Nurse [facility] 06-29-2024 09:12-0400 Systolic blood pressure 122 mm[Hg] [facility] Nurse [facility] 12-26-2022 13:45-0400 Body height 160.02 cm Jennifer Betzaida Other [facility] Other 12-26-2022 13:45-0400 Body mass index (BMI) [Ratio] 27.45 kg/m2 Jennifer Betzaida Other [facility] Other 12-26-2022 13:45-0400 Body temperature 97 [degF] Jennifer Betzaida Other [facility] Other 12-26-2022 13:45-0400 Body weight 70.31 kg Jennifer Betzaida Other [facility] Other 12-26-2022 13:45-0400 Diastolic blood pressure 89 mm[Hg] Jennifer Huston Other [facility] Other 12-26-2022 13:45-0400 Respiratory rate 18 /min Jennifer Huston Other [facility] Other 12-26-2022 13:45-0400 SaO2% (BldA) [Mass fraction] 100 % Jennifer Huston Other [facility] Other 12-26-2022 13:45-0400 Systolic blood pressure 135 mm[Hg] Jennifer Huston Other [facility] Other Encounters Encounter Date Encounter Type Care Provider Facility Start: 08-06-2024 End: 08-06-2024 ambulatory MACKENZIE MICHAEL Not Available Start: 07-21-2024 End: 07-21-2024 Clinisync Result Encounter Mackenzie Michael DO Work Phone: [facility] Unsolicited Start: 07-21-2024 End: 07-21-2024 Clinisync Result Encounter Mackenzie Michael DO Work Phone: [facility] Unsolicited Start: 06-29-2024 End: 06-29-2024 Office outpatient visit 5 minutes [facility] Michael Nurse [facility] Comment on above: GA: 7w1d Start: 06-29-2024 End: 06-29-2024 ambulatory MACKENZIE MICHAEL Not Available Start: 12-26-2022 Office outpatient ne w 20 minutes Jennifer Betzaida [facility] Start: 12-26-2022 End: 12-26-2022 ambulatory Jennifer Huston [facility] Other Start: 12-26-2022 End: 12-26-2022 Patient encounter procedure OFFICE SERVICE COORDINATOR-C Jennifer Dudleymond Work Phone: [facility] Work Phone: Start: 11-02-2022 End: 11-02-[address] MACKENZIE RODRIGUEZ . Facility:[facility] Start: 08-16-2022 End: 08-16-[address] DOCTOR ATWOOD Facility:[facility] Start: 08-10-2022 End: 08-12-2022 Evaluation and management of inpatient DR DOCTOR ATWOOD Facility:[facility] Start: 08-07-2022 End: 08-07-[address] DOCTOR ATWOOD Facility:[facility] Start: 07-31-2022 End: 07-31-[address] [...] End: 06-04-[address] MACKENZIE RODRIGUEZ . Facility:[facility] Start: 05-21-2022 End: 05-22-[address] MACKENZIE RODRIGUEZ . Facility:[facility] Start: 05-10-2022 End: 05-10-[address] MACKENZIE RODRIGUEZ . Facility:[facility] Start: 05-10-2022 End: 05-10-[address] DOCTOR ATWOOD Facility:[facility] Start: 05-03-[address] MACKENZIE RODRIGUEZ . Facili ty:[facility] Start: 04-27-2022 End: 04-27-[address] MACKENZIE RODRIGUEZ . Facility:[facility] Start: 04-12-2022 End: 04-12-[address] MACKENZIE RODRIGUEZ . Facility:[facility] Start: 04-12-2022 End: 04-13-[address] MACKENZIE RODRIGUEZ . Facility:[facility] Start: 03-26-2022 End: 03-27-[address] MACKENZIE RODRIGUEZ . Facility:[facility] Start: 01-22-2022 End: 01-23-[address] MACKENZIE RODRIGUEZ . Facility:[facility] Start: 01-14-2022 End: 01-15-2022 ambulatory [...] Start: 12-26-2022 Plain X-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 hand OFFICE SERVICE COORDINATOR-C Jennifer Huston Work Phone: Start: 08-10-2022 Delivery [...] EST Routine [facility] [address] [place] [id number] Mackenzie Rodriguez, DO [address] [place] [address] [facility] Start: 06-29-2024 End: 06-29-2025 ABO/Rh ABO/Rh Lab Routine Missed menses , unspecified gestational age Expected: 06/29/2024 (Approximate), Expires: 06/29/2025 [facility] Comment on above: Expected: 06/29/2024 (Approximate), Expires: 06/29/2025 Start: 06-29-2024 End: 06-29-2025 Blood type and Indirect antibody screen panel - Blood Type and screen Lab Routine Missed menses , unspecified gestational age Expected: 06/29/2024 (Approximate), Expires: 06/29/2025 [facility] Work Phone: Comment on above: Expected: 06/29/2024 (Approximate), Expires: 06/29/2025 Start: 06-29-2024 End: 06-29-2025 Drugs of abuse panel - Urine by Screen method Rapid drug screen, urine Lab Routine , unspecified gestational age Encounter for supervision of normal first in first trimester Expected: 06/29/2024 (Approximate), Expires: 06/29/2025 [facility] Comment on above: Expected: 06/29/2024 (Approximate), Expires: 06/29/2025 Start: 06-29-2024 End: 06-29-2025 US Pelvis transvaginal US OB transvaginal Imaging Routine Missed menses Expected: 06/29/2024 (Approximate), Expires: 06/29/2025 [facility] Comment on above: Expected: 06/29/2024 (Approximate), Expires: 06/29/2025 Start: 05-27-2024 Influenza vaccination Influenza Vacc ine (#1) [facility] Bacteria identified in Urine by Culture Urine culture Microbiology Routine Missed menses Ordered: 06/29/2024 [facility] Comment on above: Ordered: 06/29/2024 CBC W Auto Different ial panel - Blood CBC and differential Lab Routine Missed menses , unspecified gestational age Ordered: 06/29/2024 [facility] Comment on above: Ordered: 06/29/2024 Hemoglobin A1c/Hemoglobin.total in Blood Hemoglobin A1c Lab Routine Missed menses , unspecified gestational age Ordered: 06/29/2024 [facility] Comment on above: Ordered: 06/29/2024 Hepatitis B virus surface Ag [Presence] in Serum or Plasma by Immunoassay Hepatitis B surface antigen Lab Routine Missed menses , unspecified gestational age Ordered: 06/29/2024 [facility] Comment on above: Ordered: 06/29/2024 Hepatitis C virus Ab [Presence] in Serum or Plasma by Immunoassay Hepatitis C antibody Lab Routine Missed menses , unspecified gestational age Ordered: 06/29/2024 [facility] Comment on above: Ordered: 06/29/2024 HIV-1/HIV-2 antigen/antibody combination immunoassay HIV-1 and HIV-2 antibodies Lab Routine Missed menses , unspecified gestational age Ordered: 06/29/2024 [facility] Comment on above: Ordered: 06/29/2024 Reagin Ab [Presence] in Serum by RPR RPR Lab Routine Missed menses , unspecified gestational age Ordered: 06/29/2024 [facility] Comment on above: Ordered: 06/29/2024 Rubella antibody, IgG Rubella an tibody, IgG Lab Routine Missed menses , unspecified gestational age Ordered: 06/29/2024 [facility] Comment on above: Ordered: 06/29/2024 Immunizations Immunization Date Immunization Notes Care Provider Ryne abrams 08-28-2002 influenza virus vacc ine, unspecified formulation [facility] Payers Date Payer Category Payer Medicaid [employer] [place] [employer] [id number] 2023-Present [address] [place] [id number] 2023 Medicaid (Managed Care) [employer] [id number] 2021 [facility] [id number]. [id number] 2021 Unknown BCBS BCBS [id number] 2021-Present [phone] [address] [place] [address] 1.2.840.691214.1.13.693.2. [id number] 2001 Unknown [id number] 2.16.840.1.249497.3.579.2. 593 2001 Unknown [id number] 2.16.840.1.961229.3.579.2. 593 2001 Unknown [id number] 2.16.840.1.866798.3.579.2. 593 2001 Unknown [id number] 2.16.840.1.169980.3.579.2. 593 2001 Unknown [id number] 2.16.840.1.148777.3.579.2. 593 2001 Unknown [id number] 2.16.840.1.994847.3.579.2. 593 2001 Unknown [id number] 2.16.840.1.829058.3.579.2. 593 2001 Unknown [id number] 2.16.840.1.767591.3.579.2. 593 2001 Unknown [id number] 2.16.840.1.641932.3.579.2. 593 2001 Unknown [id number] 2.16.840.1.200242.3.579.2. 593 2001 Unknown [id number] 2.16.840.1.848139.3.579.2. 593 2001 Unknown [id number] 2.16.840.1.175983.3.579.2. 593 2001 Unknown [id number] 2.16.840.1.981817.3.579.2. 593 2001 Unknown [id number] 2.16.840.1.144934.3.579.2. 593 2001 Unknown [id number] 2.16.840.1.802748.3.579.2. 593 2001 Unknown [id number] 2.16.840.1.878542.3.579.2. 593 2001 Unknown [id number] 2.16.840.1.733666.3.579.2. 593 2001 Unknown [id number] 2.16.840.1.359269.3.579.2. 593 2001 Unknown [id number] 2.16.840.1.006963.3.579.2. 593 2001 Unknown [id number] 2.16.840.1.013333.3.579.2. 593 2001 Unknown [id number] 2.16.840.1.297364.3.579.2. 593 2001 Unknown [id number] 2.16.840.1.270994.3.579.2. 1259 2001 Unknown [id number] 2.16.840.1.153781.3.579.2. 1259 1959 Self-pay 1959 Unknown [id number] 1959 Unknown [id number] Unknown [id number] 2.16.840.1.551995.3.579.2. 593 Unknown [id number] 2.16840.1.779359.3.579.2. 531 Social History Date Type Detail Facility Start: 10-13-2023 Sex Assigned At N [place] Other Start: 2001 Sex Assigned At Female F [facility] Start: 10-13-2023 Tobacco smoking stat us NHIS Never smoked tobacco [facility] Start: 06-29-2024 [...] illness Narrative Reason for Appointment: Patient ID: Vimal Funes is a 24 y.o. female who [...] blood transfusion Lead poisoning Nonsmoker Post depression ([facility]) Family History Problem Relation Name Age [...] or undercooked meat, and stay away from formerly [facility]. Patient has also been advised to [...] by: Whitney Peacock documented in this encounter [facility] Evaluation note 12-26-2022 Note Date & [...] appointment to be seen soon as possible [facility] Other Evaluation note Note Date & Type Note Facility Evaluation note No assessment information availa [facility] Work Phone: Evaluation note Note Date [...] section and content) DATE CREATED AUTHOR 09/24/2021 [facility] DATE CREATED AUTHOR AUTHOR'S ORGANIZ ATION 12/07/2022 [facility] DATE CREATED AUTHOR AUTHOR'S ORGANIZ ATION 01/08/2023 [facility] DATE CREATED AUTHOR AUTHOR'S ORGANIZ ATION 08/07/2024 [facility] EPIC REASON FOR VISIT (unrecogniz ed section and content) Reason Comments Initial Visit Care Teams (unrecognized sec tion and content) Team Status: Inactive Member Role Status Dates Jennifer Huston , OFFICE SERVICE COORDINATOR-C Attending Provider Active Drying Room Attendant Relationship Specialty Start Date End Date Vaishali Zapata MD [address] [place] [address] PCP - General Family Medicine 02/04/23 Drying Room Attendant Relationship Specialty Start Date End Date Vaishali Zapata MD [address] [place] [address] PCP - General Family Medicine 02/04/23 Goals [...] BE BASED ON THE PRIMARY CLINICAL RECORDS. [facility] TATE'S LIST [facility]. provides no warranty or guarantee of the accuracy or completeness of information in this document.
== END 2024-08-09 09:13 | disposition home or self-care (01) ==
LOC: PST 09:12
PROVIDERS: PCP Nurse Practitioner Family; Visit Provider Obstetrics & Gynecology
DX: Z01.818 Encounter for other preprocedural examination (principal); O02.1 Missed abortion

== ENCOUNTER 2024-08-10 07:43 | Day surgery (SDC) | payer BC, OTHER, SELFPAY ==
[2024-08-09 09:55] VITALS: PULSE 77; TEMP 36.3; O2SAT 100; BMI 25.7
[2024-08-10] VITALS (11 sets, daily range): BP systolic 110–137; BP diastolic 68–87; PULSE 58–72; TEMP 36.1–36.6; O2SAT 94–100; BMI 26.0
--- OUTSIDE RECORDS SUMMARY | 2024-08-10 07:47 | XMS_ITS | CCD ---
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 Name Role Phone MICHAEL ., DR MANN [...] Unavailable MISC, DR DOMINIQUE Primary Care Unavailable PINELLAS PARK, DR COCO Danielle Consulting Unavailable MICHAEL ., DR MANN Consulting Unavailable MICHAEL ., DR MANN Admitting Unavailable MICHAEL ., DR MANN Attending Unavailable MISC, DR DOMINIQUE Primary Care Unavailable MICHAEL ., DR MANN Consulting Unavailable MICHAEL ., DR MANN Admitting Unavailable MICHAEL ., DR MANN Attending Unavailable MISC, DR DOMINIQUE Primary Care Unavailable PINELLAS PARK, DR COCO Danielle Consulting Unavailable MICHAEL ., [...] Unavailable MICHAEL ., DR MANN Consulting Unavailable [facility], DR DOMINIQUE Primary Care Unavailable DR MACKENZIE RICHEY Consulting Unavailable CARIDAD NGUYEN Admitting Unavailable CARIDAD NGUYEN Attending Unavailable DONALD, DR ESTEFANY Zurita Consulting Unavailable CARIDAD NGUYEN Consulting Unavailable Jennifer Huston Unavailable JEFFERY Huston Attending Provider [phone] Jennifer Huston Attending Unavailable Jennifer Huston Admitting [...] WITH AUTO DIFFon BASOPHILS ABSOLUTE AUTO 0.1 [facility] Basophils/100 WBC (Bld) 0.5 % 0.2 - 2.0 % [facility] Eosinophils/100 WBC (Bld) 2.8 % 0.9 - 7.0 % [facility] Erythrocyte distribution width (RBC) [Ratio] 11.9 % 11.0 - 15.0 % [facility] Hematocrit (Bld) [Volume fraction] 44.7 % 36.0 - 48.0 % [facility] Healthcar e Hemoglobin (Bld) [Mass/Vol] 15.3 g/dL 12.0 - 16.0 g/dL [facility] IMMATURE GRANULOCYTES ABS AUTO 0.03 [facility] Immature granulocytes/100 WBC (Bld) 0.3 % 0.0 - 0.5 % [facility] Interpretation and review of laboratory results Abnormal [facility] LYMPHOCYTES ABSOLUTE AUTO 1.6 [facility] Lymphocytes/100 WBC (Bld) 14.9 % Low 20.5 - 60.0 % [facility] MCH (RBC) [Entitic mass] 31.7 pg 26.7 - 34.0 pg [facility] MCHC (RBC) [Mass/Vol] 34.2 g/dL 29.9 - 35.2 g/dL [facility] MCV (RBC) [Entitic vol] 92.7 fL 81.0 - 99.0 fL [facility] MONOCYTES ABSOLUTE AUTO 0.4 [facility] Monocytes/100 WBC (Bld) 3.7 % 1.7 - 12.0 % [facility] NEUTROPHILS ABSOLUTE AUTO 8.2 High [facility] Neutrophils/100 WBC (Bld) 77.8 % High 43.0 - 75.0 % [facility] Platelet mean volume (Bld) [Entitic vol] 10 fL 9.5 - 13.5 fL [facility].3 [facility] PLT 263 [facility] TB RBC 4.82 [facility] TB WBC 10.6 [facility] Healthcar e [facility] No Panel Informationon 07-21 [facility] TB DRUG SCREEN RAPID (URINE )on 07-21-2024 AMPHETAMINE SCREEN URINE Negative NEGATIVE [facility] BARBITURATES SCREEN URINE Negative NEGATIVE [facility] BENZODIAZEPINES SCREEN URINE Negative NEGATIVE [facility] BUPRENORPHINE SCREEN URINE Negative NEGATIVE [facility] Comment on above: DRUG CLASS TEST SYST [...] 300 ng/mL CANNABINOID SCREEN URINE Negative NEGATIVE [facility] COCAINE SCREEN URINE Negative NEGATIVE [facility] METHADONE SCREEN URINE Negative NEGATIVE [facility] METHAMPHETAMINES SCREEN URINE Negative NEGATIVE [facility] OPIATE SCREEN URINE Negative NEGATIVE [facility] OXYCODONE SCREEN URINE Negative NEGATIVE [facility] PHENCYCLIDINE SCREEN URINE Negative NEGATIVE [facility] TRICYCLIC ANTIDEPRESSANT URINE Negative NEGATIVE [facility] REEFLEX IF POSITIVE [facility] HCG ( test) Ql (U)o n 06-29-2024 Interpretation and review of laboratory results Abnormal [facility] Preg Test, Ur Positive [facility] Health[facility] Urinalysis macro (dipstick) panel (U)on 06-29-2024 Bilirubin, UA Negative Negative - 4(70) +++ mg/dL [facility] Blood, UA Negative Negative - 50 Jason/mcL [facility] Clarity, UA Clear [facility] re Color, UA Yellow [facility] Glucose, UA Negative Negative - 1999(110) ++++ mg/dL [facility] Interpretation and review of laboratory results Normal [facility] Ketones, UA Negative Negative - 160(16) ++++ mg/dL [facility] Leukocytes, UA Negative Negative - 500+++ Carlos/mcL [facility] Nitrite, UA Negative Negative - Positive [facility] pH, UA 7.0 5 - 9 [facility] Healthcar e Protein, UA Negative Negative - 1999(20) ++++ mg/dL [facility] Spec Grav, UA 1.015 1 - 1.03 [facility] Urobilinogen, UA 0.2 0.2 - 12 mg/dL [facility] XR hand RT min 3V*on 023 XR hand RT min 3V* [address] [address] XRay Report Signed Patient: Vimal Funes MR#: [id number] 18 : 2000 Acct:[id number] Age/Sex: 22 / F ADM Date: 12/26/22 Loc: XDUCLY Room: Type: [facility] Attending Dr: Jennifer GIL Copies to: [...] Arias Jr., Bahman12/26/2022 1:44 PM Dictation Location: [place] [address] Transcribed By: [facility] 12/26/22 1344 Dictated By: Bulmaro Arias Jr, DO 12/26/22 1343 Signed By: 12/26/22 1344 Normal [facility] XR hand RT min 3V* [facility] [employer] Other XR hand RT min 3V* [facility] [employer] Other XR hand RT min 3V* 7062 [facility] [employer] Other XR hand RT min 3V* [place] [address] [facility] [employer] Other XR hand RT min 3V* XRay Report [facility] [employer] Other XR hand RT min 3V* Signed edjing [facility] [employer] Other XR hand RT min 3V* Patient: Vimal Funes MR#: [id number] [employer] Other XR hand RT min 3V* 18 [employer] Other XR hand RT min 3V* : 2000 Acct:[id number] [employer] Other XR hand RT min 3V* Age/Sex: 22 / F ADM Date: 12/26/22 [employer] Other XR hand RT min 3V* Loc: XDUCLY Room: Type: [facility] [employer] Other XR hand RT min 3V* Attending Dr: Jennifer GIL [employer] Other XR hand RT min 3V* Copies to: JEFFERY Rodriguez [employer] Other XR hand RT min 3V* Ordering Provider: JEFFERY Rodriguez [employer] Other XR hand RT min 3V* Date of Service: 12/26/22 [employer] Other XR hand RT min 3V* XR/XR hand RT min 3V*: RIGHT HAND INJURY [employer] Other XR hand RT min 3V* RIGHT HAND - 4 views [employer] Other XR hand RT min 3V* REASON FOR EXAM: Patient had right thumb hyperextended yesterday when trying to open the door. Now [employer] Other XR hand RT min 3V* with pain. [employer] Other XR hand RT min 3V* COMPARISON: None [employer] Other XR hand RT min 3V* FINDINGS: [employer] Other XR hand RT min 3V* No focal soft tissue abnormality. There appears to be avulsion fracture involving the base of the [employer] Other XR hand RT min 3V* distal phalanx of the thumb. Joint spaces appear maintained. No bony erosions. [employer] Other XR hand RT min 3V* XR/XR hand RT min 3V* [employer] Other XR hand RT min 3V* IMPRESSION: [employer] Other XR hand RT min 3V* AVULSION FRACTURE INVOLVING THE BASE OF THE DISTAL PHALANX OF THE THUMB. [employer] Other XR hand RT min 3V* Impression dictated by: Bulmaro Arias Jr., MaryOGene12/26/2022 1:44 PM [employer] Other XR hand RT min 3V* Dictation Location: [facility] [employer] Other XR hand RT min 3V* Transcribed By: PWS 12/26/22 [facility] [employer] Other XR hand RT min 3V* Dictated By: Bulmaro Arias Jr, DO 12/26/22 [facility] [employer] Other XR hand RT min 3V* Signed By: [employer] Other XR hand RT min 3V* 12/26/[address] [place] [address] [employer] Other PAP ACOG PANEL 2: 22 to 30on 11-09-2022 . . Normal [facility] Comment on above: Performed By: #### [id number] ####[facility] [address] [place] [id number] Mancini Age Gdln ACOG Testing 22- Normal [facility] Comment on above: Performed By: #### 4 [id number] ####[facility] [address] [place], [place] [address]AnGene Mancini DIAGNOSIS: Comment Normal [facility] Comment on above: Result Comment: NEGA TIVE FOR INTRAEPITHELIAL LESION OR MALIGNANCY. Performed By: #### 4 [id number] ####[facility] [address] [place], [place] [address]DrGene Mancini Methodology: Comment Normal [facility] Comment on above: Result Comment: This liquid based ThinPrep(R) pap test was screened with the use of an image guided system. Performed By: #### 4 [id number] ####[place] [address]DrGene Mancini Note: Comment Normal [facility] Comment on above: Result Comment: The Pap smear is a screening test designed to aid in the detection of premalignant and malignant conditions of the uterine cervix. It is not a diagnostic procedure and should not be used as the sole means of detecting cervical cancer. Both false-positive and false-negative reports do occur. . Performed By: #### 4 [id number] ####[place] [address]Dr. Donis Mancini Performed by: Comment Normal [facility] Comment on above: Result Comment: Zuleima Lin, Charrer (ASCP) Performed By: #### 4 [id number] ####[place] [address]DrGene Mancini Reflex Criteria: Comment Normal [facility] Comment on above: Result Comment: The HPV DNA reflex criteria were not met with this specimen result therefore, no HPV testing was performed. . Performed By: #### 4 [id number] ####[facility] [address] [place], [place] [address]DrGene Mancini Specimen adequacy: Comment Normal [facility] Comment on above: Result Comment: Sati sfactory for evaluation. Endocervical and/or squamous metaplastic cells (endocervical component) are present. Performed By: #### 4 [id number] ####[facility] [address] [place], [place] [address]DrGene Mancini CBC AUTO DIFFon 08-11-2022 BASO # 0.0 103/ul Normal 0.0-0.1 [facility] Comment on above: Performed By: #### C T/NGNA #### [facility] Laboratory [address] [place] [address] Dr. Donis Mancini Basophils/100 WBC (Bld) 0.2 % Normal 0.2-2.0 [facility] Comment on above: Performed By: #### C T/NGNA #### [facility] [address] [place] [address] Dr. Donis Mancini EO # 0.1 103/ul Normal 0.0-0.7 [facility] Comment on above: Performed By: #### C T/NGNA #### [facility] [address] [place] [address] Dr. Donis Mancini Eosinophils/100 WBC (Bld) 0.5 % Critically low 0.9-7.0 [facility] Comment on above: Performed By: #### C T/NGNA #### [facility] [address] [place] [address] Dr. Donis Mancini Erythrocyte distribution width (RBC) [Ratio] 12.5 % Normal 11.0-15.0 [facility] Comment on above: Performed By: #### C T/NGNA #### [facility] [address] [place] [address] Dr. Donis Mancini Hematocrit (Bld) [Volume fraction] 35.9 % Critically low 36.0-48.0 [facility] Comment on above: Performed By: #### C T/NGNA #### [facility] [address] [place] [address] Dr. Donis Mancini Hemoglobin (Bld) [Mass/Vol] 12.4 g/dL Normal 12.0-16.0 [facility] Comment on above: Result Comment: michelet ent delivered Performed By: #### C T/NGNA #### [facility] [address] [place] [address] Dr. Donis Mancini IG # 0.10 10e3/ul Critically high 0.00-0.03 [facility] Comment on above: Performed By: #### C T/NGNA #### [facility] [address] [place] [address] Dr. Donis Mancini IG % 0.5 % Normal 0.0-0.5 [facility] Comment on above: Performed By: #### C T/NGNA #### [facility] [address] [place] [address] Dr. Donis Mancini LYMPH # 1.5 103/ul Normal 1.2-3.8 [facility] Comment on above: Performed By: #### C T/NGNA #### [facility] [address] [place] [address] Dr. Donis Mancini Lymphocytes/100 WBC (Bld) 7.6 % Critically low 20.5-60.0 [facility] Comment on above: Performed By: #### C T/NGNA #### [facility] [address] [place] [address] Dr. Donis Mancini MANUAL DIFF REQ NO Normal [facility] Comment on above: Performed By: #### C T/NGNA #### [facility] [address] [place] [address] Dr. Donis Mancini MCH (RBC) [Entitic mass] 32.2 pg Normal 26.7-34.0 [facility] Comment on above: Performed By: #### C T/NGNA #### [facility] [address] [place] [address] Dr. Donis Mancini MCHC (RBC) [Mass/Vol] 34.5 g/dL Normal 29.9-35.2 [facility] Comment on above: Performed By: #### C T/NGNA #### [facility] [address] [place] [address] Dr. Donis Mancini MCV (RBC) [Entitic vol] 93.2 fL Normal 81.0-99.0 [facility] Comment on above: Performed By: #### C T/NGNA #### [facility] [address] [place] [address] Dr. Donis Mancini MONO # 1.3 103/ul Critically high 0.3-0.8 [facility] Comment on above: Performed By: #### C T/NGNA #### [facility] [address] [place] [address] Dr. Donis Mancini Monocytes/100 WBC (Bld) 6.8 % Normal 1.7-12.0 [facility] Comment on above: Performed By: #### C T/NGNA #### [facility] [address] [place] [address] Dr. Donis Mancini NEUT # 16.2 103/ul Critically high 1.4-6.5 [facility] Comment on above: Performed By: #### C T/NGNA #### [facility] [address] [place] [address] Dr. Donis Mancini Neutrophils/100 WBC (Bld) 84.4 % Critically high 43.0-75.0 [facility] Comment on above: Performed By: #### C T/NGNA #### [facility] [address] [place] [address] Dr. Donis Mancini Platelet mean volume (Bld) [Entitic vol] 11.8 fL Normal 9.5-13.5 [facility] Comment on above: Performed By: #### C T/NGNA #### [facility] [address] [place] [address] Dr. Donis Mancini PLT 156 103/ul Normal 150-450 [facility] Comment on above: Performed By: #### C T/NGNA #### [facility] [address] [place] [address] Dr. Donis Mancini RBC 3.85 106/ul Critically low 4.20-5.40 [facility] Comment on above: Performed By: #### C T/NGNA #### [facility] [address] [place] [address] Dr. Donis Mancini WBC 19.2 103/ul Critically high 4.0-11.0 [facility] Comment on above: Performed By: #### C T/NGNA #### [facility] [address] [place] [address] Dr. Donis Mancini Covid-19 PCR ([facility]on 07-27 SARS-CoV-2 (COVID-19) RNA INESSA+probe Ql (Unsp spec) Not detected Normal NOT DETECTED [facility] Comment on above: Result Comment: [...] for this test is supported by the [place] of Health and Human Service's declaration that [...] Performed By: #### C VDTBH ####[facility] [address] [place], [place] [address]Dr. Donis Mancini DRUG SCREEN RAPID (URINE)on 08-10-2022 AMP Negative Normal NEGATIVE [facility] Comment on above: Performed By: #### D RUGRPD ####[facility] [address] [place], [place] [address]Dr. Donis Mancini BAR Negative Normal NEGATIVE [facility] Comment on above: Performed By: #### D RUGRPD ####[facility] [address] [place] [id number]. Donis Mancini BUP Negative Normal NEGATIVE [facility] Comment on above: Performed By: #### D RUGRPD ####[facility] [address] [place] [id number]. Donis Mancini BZO Negative Normal NEGATIVE [facility] Comment on above: Performed By: #### D RUGRPD ####[facility] [address] [place], [place] [id number]. Donis Mancini ALEXA Negative Normal NEGATIVE [facility] Comment on above: Performed By: #### D RUGRPD ####[facility] [address] [place], [place] [address]Dr. Donis Mancini CUT-OFFS SEE BELOW Normal [facility] Comment on above: Result Comment: [...] Performed By: #### D RUGRPD ####[facility] [address] [place], [place] [address]Dr. Laceyjavi Mancini DRUG CUT HEADER DRUG CLASS TEST SYSTEM CUT-OFF CONCENTRATIONS ARE FOLLOWS: Normal [facility] Comment on above: Performed By: #### D RUGRPD ####[facility] [address] [place], [place] [address]Dr. Laceyjavi Mancini mAMP Negative Normal NEGATIVE [facility] Comment on above: Performed By: #### D RUGRPD ####[facility] [address] [place], [place] [address]Dr. Laceyjavi Mancini MTD Negative Normal NEGATIVE [facility] Comment on above: Performed By: #### D RUGRPD ####[facility] [address] [place], [place] [id number]. Donis Mancini OPI Negative Normal NEGATIVE [facility] Comment on above: Performed By: #### D RUGRPD ####[facility] [address] [place], [place] [address]Dr. Donis Mancini OXY Negative Normal NEGATIVE [facility] Comment on above: Performed By: #### D RUGRPD ####[facility] [address] [place], [place] [address]Dr. Donis Mancini PCP Negative Normal NEGATIVE [facility] Comment on above: Performed By: #### D RUGRPD ####[facility] [address] [place], [place] [address]Qd. Donis Mancini PPX Negative Normal NEGATIVE [facility] Comment on above: Performed By: #### D RUGRPD ####[facility] [address] [place], [place] [address]Su. Donis Mancini TCA Negative Normal NEGATIVE [facility] Comment on above: Performed By: #### D RUGRPD ####[facility] [address] [place], [place] [address]Sl. Donis Mancini THC Negative Normal NEGATIVE [facility] Comment on above: Performed By: #### D RUGRPD ####[facility] [address] [place], [place] [address]Pd. Donis Mancini TYPE AND SCREENon 08-10-2022 TYPE AND SCREEN Negative Normal [facility] Comment on above: Performed By: #### T NS ####[facility] [address] [place] [id number]. Donis Mancini US PREG BIOPHY W NON [...] Date: 2022-08-10 07:18 Normal [facility] US PREG GROWTHon 08-10-2022 US [...] Date: 2022-08-10 07:16 Normal [facility] CBC AUTO DIFFon 08-09-2022 BASO # 0.0 103/ul Normal 0.0-0.1 [facility] Comment on above: Performed By: #### C BC ####[facility] [address] [place], [place] [address]Dr. Donis Mancini Basophils/100 WBC (Bld) 0.2 % Normal 0.2-2.0 [facility] Comment on above: Performed By: #### C BC ####[facility] [address] [place], [place] [address]Dr. Donis Mancini EO # 0.4 103/ul Normal 0.0-0.7 [facility] Comment on above: Performed By: #### C BC ####[facility] [address] [place], [place] [address]Dr. Donis Mancini Eosinophils/100 WBC (Bld) 2.8 % Normal 0.9-7.0 [facility] Comment on above: Performed By: #### C BC ####[facility] [address] [place], [place] [address]Dr. Donis Mancini Erythrocyte distribution width (RBC) [Ratio] 12.2 % Normal 11.0-15.0 [facility] Comment on above: Performed By: #### C BC ####[facility] [address] [place], [place] [address]Dr. Donis Mancini Hematocrit (Bld) [Volume fraction] 41.4 % Normal 36.0-48.0 [facility] Comment on above: Performed By: #### C BC ####[facility] [address] [place] [id number]. Donis Mancini Hemoglobin (Bld) [Mass/Vol] 14.4 g/dL Normal 12.0-16.0 [facility] Comment on above: Performed By: #### C BC ####[facility] [address] [place] [id number]. Donis Mancini IG # 0.06 10e3/ul Critically high 0.00-0.03 The [facility] Comment on above: Performed By: #### C BC ####[facility] [address] [place] [id number]. Donis Mancini IG % 0.5 % Normal 0.0-0.5 [facility] Comment on above: Performed By: #### C BC ####[facility] [address] [place] [address]Dr. Donis Mancini LYMPH # 1.5 103/ul Normal 1.2-3.8 [facility] Comment on above: Performed By: #### C BC ####[facility] [address] [place] [address]Dr. Donis Mancini Lymphocytes/100 WBC (Bld) 11.7 % Critically low 20.5-60.0 [facility] Comment on above: Performed By: #### C BC ####[facility] [address] [place] [id number]. Donis Mancini MANUAL DIFF REQ NO Normal [facility] Comment on above: Performed By: #### C BC ####[facility] [address] [place] [id number]. Donis Mancini MCH (RBC) [Entitic mass] 31.9 pg Normal 26.7-34.0 [facility] Comment on above: Performed By: #### C BC ####[facility] [address] [place] [id number]. Donis Mancini MCHC (RBC) [Mass/Vol] 34.8 g/dL Normal 29.9-35.2 [facility] Comment on above: Performed By: #### C BC ####[facility] [address] [place] [address]Dr. Donis Mancini MCV (RBC) [Entitic vol] 91.8 fL Normal 81.0-99.0 [facility] Comment on above: Performed By: #### C BC ####[facility] [address] [place] [address]Dr. Donis Mancini MONO # 1.0 103/ul Critically high 0.3-0.8 [facility] Comment on above: Performed By: #### C BC ####[facility] [address] [place] [address]Dr. Donis Live Monocytes/100 WBC (Bld) 7.5 % Normal 1.7-12.0 [facility] Comment on above: Performed By: #### C BC ####[facility] [address] [place], [place] [address]Dr. Donis Mancini NEUT # 10.0 103/ul Critically high 1.4-6.5 The [facility] Comment on above: Performed By: #### C BC ####[facility] [address] [place], [place] [address]Dr. Donis Mancini Neutrophils/100 WBC (Bld) 77.3 % Critically high 43.0-75.0 [facility] Comment on above: Performed By: #### C BC ####[facility] [address] [place], [place] [address]Dr. Donis Live Platelet mean volume (Bld) [Entitic vol] 11.6 fL Normal 9.5-13.5 [facility] Comment on above: Performed By: #### C BC ####[facility] [address] [id number]. Donis Live PLT 184 103/ul Normal 150-450 [facility] Comment on above: Performed By: #### C BC ####[facility] [address] [place], [place] [address]Dr. Laceyjavi Live RBC 4.51 106/ul Normal 4.20-5.40 [facility] Comment on above: Performed By: #### C BC ####[facility] [address] [place], [place] [id number]. Donis Mancini WBC 12.9 103/ul Critically high 4.0-11.0 [facility] Comment on above: Performed By: #### C BC ####[facility] [address] [address]Dr. Donis Mancini LDHon 08-09-2022 LDH 167 U/L Normal 81-234 [facility] Comment on above: Performed By: #### C T/NGNA #### [facility] Laboratory [address] [address] [address] Donis Mancini PROF 14(COMP METB)on 022 Albumin [Mass/Vol] 2.7 g/dL Critically low 3.4-5.0 [facility] Comment on above: Performed By: #### C T/NGNA #### [facility] Laboratory [address] [place] [address] Dr. Donis Mancini Albumin/Globulin [Mass ratio] 0.6 {ratio} Normal [facility] Comment on above: Performed By: #### C T/NGNA #### [facility] [address] [address] [address] Donis Mancini ALP [Catalytic activity/Vol] 176 U/L Critically high 46-116 [facility] Comment on above: Performed By: #### C T/NGNA #### [facility] [address] [address] [address] Donis Mancini ALT [Catalytic activity/Vol] 20 U/L Normal 14-59 [facility] Comment on above: Performed By: #### C T/NGNA #### [facility] [address] [address] [address] Donis Mancini Anion gap [Moles/Vol] 12.9 mmol/L Normal [facility] Comment on above: Performed By: #### C T/NGNA #### [facility] Laboratory [address] [place] [address] Dr. Donis Mancini AST [Catalytic activity/Vol] 20 U/L Normal 15-37 [facility] Comment on above: Performed By: #### C T/NGNA #### [facility] [address] [address] [address] Donis Mancini Bilirubin [Mass/Vol] 0.1 mg/dL Critically low 0.2-1.0 [facility] Comment on above: Performed By: #### C T/NGNA #### [facility] [address] [address] [address] Donis Mancini Calcium [Mass/Vol] 9.1 mg/dL Normal 8.5-10.1 [facility] Comment on above: Performed By: #### C T/NGNA #### [facility] [address] [address] [address] Donis Mancini Chloride [Moles/Vol] 104 mmol/L Normal 98-107 [facility] Comment on above: Performed By: #### C T/NGNA #### [facility] Laboratory [address] [place] [address] Dr. Donis Mancini CO2 [Moles/Vol] 22.9 mmol/L Normal 21.0-32.0 [facility] Comment on above: Performed By: #### C T/NGNA #### [facility] Laboratory [address] [place] [address] Dr. Donis Mancini Creatinine [Mass/Vol] 0.43 mg/dL Critically low 0.55-1.02 [facility] Comment on above: Performed By: #### C T/NGNA #### [facility] [address] [place] [address] Dr. Donis Mancini EGFR-AF TAJIK >60 Normal >=60 [facility] Comment on above: Performed By: #### C T/NGNA #### [facility] [address] [place] [address] Dr. Donis Mancini EGFR-NON AF TAJIK >60 Normal >=60 [facility] Comment on above: Performed By: #### C T/NGNA #### [facility] [address] [place] [address] Dr. Donis Mancini Globulin (S) [Mass/Vol] 4.2 g/dL Normal [facility] Comment on above: Performed By: #### C T/NGNA #### [facility] [address] [address] [address] Donis Mancini Glucose [Mass/Vol] 95 mg/dL Normal 74-106 [facility] Comment on above: Performed By: #### C T/NGNA #### [facility] [address] [address] [address] Donis Mancini Potassium [Moles/Vol] 3.8 mmol/L Normal 3.5-5.1 [facility] Comment on above: Performed By: #### C T/NGNA #### [facility] [address] [address] [address] Doins Mancini Protein [Mass/Vol] 6.9 g/dL Normal 6.4-8.2 [facility] Comment on above: Performed By: #### C T/NGNA #### [facility] [address] [place] [address] Dr. Donis Mancini Sodium [Moles/Vol] 136 mmol/L Normal 136-145 [facility] Comment on above: Performed By: #### C T/NGNA #### [facility] [address] [place] [address] Dr. Donis Mancini Urea nitrogen [Mass/Vol] 10.0 mg/dL Normal 7.0-18.0 [facility] Comment on above: Performed By: #### C T/NGNA #### [facility] [address] [place] [address] Dr. Donis Mancini Urea nitrogen/Creatinine [Mass ratio] 23.3 mg/mg Normal [facility] Comment on above: Performed By: #### C T/NGNA #### [facility] [address] [place] [address] Dr. Donis Mancini URIC ACID SERUMon 08-09-2022 Urate [Mass/Vol] 3.6 mg/dL Normal 2.6-6.0 [facility] Comment on above: Performed By: #### C T/NGNA #### [facility] [address] [place] [address] Dr. Donis Mancini CBC AUTO DIFFon 08-07-2022 BASO # 0.0 103/ul Normal 0.0-0.1 [facility] Comment on above: Performed By: #### U AMIC #### [facility] [address] [place] [address] Dr. Donis Mancini Basophils/100 WBC (Bld) 0.2 % Normal 0.2-2.0 [facility] Comment on above: Performed By: #### U AMIC #### [facility] [address] [place] [address] Dr. Donis Mancini EO # 0.2 103/ul Normal 0.0-0.7 [facility] Comment on above: Performed By: #### U AMIC #### [facility] [address] [place] [address] Dr. Donis Mancini Eosinophils/100 WBC (Bld) 1.8 % Normal 0.9-7.0 [facility] Comment on above: Performed By: #### U AMIC #### [facility] [address] [place] [address] Dr. Donis Mancini Erythrocyte distribution width (RBC) [Ratio] 12.3 % Normal 11.0-15.0 [facility] Comment on above: Performed By: #### U AMIC #### [facility] [address] [place] [address] Dr. Donis Mancini Hematocrit (Bld) [Volume fraction] 45.7 % Normal 36.0-48.0 [facility] Comment on above: Performed By: #### U AMIC #### [facility] [address] [place] [address] Dr. Donis Mancini Hemoglobin (Bld) [Mass/Vol] 16.0 g/dL Normal 12.0-16.0 [facility] Comment on above: Performed By: #### U AMIC #### [facility] [address] [place] [address] Dr. Donis Mancini IG # 0.07 10e3/ul Critically high 0.00-0.03 [facility] Comment on above: Performed By: #### U AMIC #### [facility] [address] [place] [address] Dr. Donis Mancini IG % 0.5 % Normal 0.0-0.5 [facility] Comment on above: Performed By: #### U AMIC #### [facility] [address] [place] [address] Dr. Donis Mancini LYMPH # 1.5 103/ul Normal 1.2-3.8 [facility] Comment on above: Performed By: #### U AMIC #### [facility] [address] [place] [address] Dr. Donis Mancini Lymphocytes/100 WBC (Bld) 11.2 % Critically low 20.5-60.0 [facility] Comment on above: Performed By: #### U AMIC #### [facility] [address] [place] [address] Dr. Donis Mancini MANUAL DIFF REQ NO Normal [facility] Comment on above: Performed By: #### U AMIC #### [facility] [address] [place] [address] Dr. Donis Mancini MCH (RBC) [Entitic mass] 32.0 pg Normal 26.7-34.0 [facility] Comment on above: Performed By: #### U AMIC #### [facility] [address] [place] [address] Dr. Donis Mancini MCHC (RBC) [Mass/Vol] 35.0 g/dL Normal 29.9-35.2 [facility] Comment on above: Performed By: #### U AMIC #### [facility] [address] [place] [address] Dr. Donis Mancini MCV (RBC) [Entitic vol] 91.4 fL Normal 81.0-99.0 [facility] Comment on above: Performed By: #### U AMIC #### [facility] [address] [place] [address] Dr. Donis Mancini MONO # 0.9 103/ul Critically high 0.3-0.8 [facility] Comment on above: Performed By: #### U AMIC #### [facility] [address] [place] [address] Dr. Donis Mancini Monocytes/100 WBC (Bld) 6.3 % Normal 1.7-12.0 [facility] Comment on above: Performed By: #### U AMIC #### [facility] [address] [address] [address] Donis Mancini NEUT # 10.9 103/ul Critically high 1.4-6.5 [facility] Comment on above: Performed By: #### U AMIC #### [facility] [address] [address] [address] Donis Mancini Neutrophils/100 WBC (Bld) 80.0 % Critically high 43.0-75.0 [facility] Comment on above: Performed By: #### U AMIC #### [facility] [address] [address] [address] Donis Mancini Platelet mean volume (Bld) [Entitic vol] 11.5 fL Normal 9.5-13.5 [facility] Comment on above: Performed By: #### U AMIC #### [facility] [address] [address] [address] Donis Mancini PLT 182 103/ul Normal 150-450 [facility] Comment on above: Performed By: #### U AMIC #### [facility] [address] [address] [address] Donis Mancini RBC 5.00 106/ul Normal 4.20-5.40 [facility] Comment on above: Performed By: #### U AMIC #### [facility] [address] [address] [address] Donis Mancini WBC 13.6 103/ul Critically high 4.0-11.0 [facility] Comment on above: Performed By: #### U AMIC #### [facility] [address] [address] [address] Donis Mancini LDHon 08-07-2022 LDH 171 U/L Normal 81-234 [facility] Comment on above: Performed By: #### C MP, URIC, LDH ####[facility] [address] [address]Dr. Donis Mancini PROF 14(COMP METB)on 022 Albumin [Mass/Vol] 2.9 g/dL Critically low 3.4-5.0 [facility] Comment on above: Performed By: #### C MP, URIC, LDH ####[facility] [address] [address]Dr. Donis Mancini Albumin/Globulin [Mass ratio] 0.6 {ratio} Normal [facility] Comment on above: Performed By: #### C MP, URIC, LDH ####[facility] [address] [address]Dr. Donis Mancini ALP [Catalytic activity/Vol] 192 U/L Critically high 46-116 [facility] Comment on above: Performed By: #### C MP, URIC, LDH ####[facility] [address] [address]Dr. Donis Mancini ALT [Catalytic activity/Vol] 23 U/L Normal 14-59 [facility] Comment on above: Performed By: #### C MP, URIC, LDH ####[facility] [address] [address]Dr. Donis Mancini Anion gap [Moles/Vol] 14.4 mmol/L Normal [facility] Comment on above: Performed By: #### C MP, URIC, LDH ####[facility] [address] [address]Dr. Donis Mancini AST [Catalytic activity/Vol] 23 U/L Normal 15-37 [facility] Comment on above: Performed By: #### C MP, URIC, LDH ####[facility] [address] [address]Dr. Donis Mancini Bilirubin [Mass/Vol] 0.2 mg/dL Normal 0.2-1.0 [facility] Comment on above: Performed By: #### C MP, URIC, LDH ####[facility] [address] [address]Dr. Donis Mancini Calcium [Mass/Vol] 9.4 mg/dL Normal 8.5-10.1 [facility] Comment on above: Performed By: #### C MP, URIC, LDH ####[facility] [address] [address]Dr. Donis Mancini Chloride [Moles/Vol] 104 mmol/L Normal 98-107 [facility] Comment on above: Performed By: #### C MP, URIC, LDH ####[facility] [address] [address]Dr. Donis Mancini CO2 [Moles/Vol] 21.7 mmol/L Normal 21.0-32.0 [facility] Comment on above: Performed By: #### C MP, URIC, LDH ####[facility] [address] [address]Dr. Donis Mancini Creatinine [Mass/Vol] 0.46 mg/dL Critically low 0.55-1.02 [facility] Comment on above: Performed By: #### C MP, URIC, LDH ####[facility] [address] [place], [place] [address]Dr. Donis Mancini EGFR-AF TAJIK >60 Normal >=60 [facility] Comment on above: Performed By: #### C MP, URIC, LDH ####[facility] [address] [place], [place] [address]Dr. Donis Mancini EGFR-NON AF TAJIK >60 Normal >=60 [facility] Comment on above: Performed By: #### C MP, URIC, LDH ####[facility] [address] [address]Dr. Donis Mancini Globulin (S) [Mass/Vol] 4.6 g/dL Normal [facility] Comment on above: Performed By: #### C MP, URIC, LDH ####[facility] [address] [address]Dr. Donis Mancini Glucose [Mass/Vol] 89 mg/dL Normal 74-106 [facility] Comment on above: Performed By: #### C MP, URIC, LDH ####[facility] [address] [place], [place] [address]Dr. Donis Mancini Potassium [Moles/Vol] 4.1 mmol/L Normal 3.5-5.1 [facility] Comment on above: Performed By: #### C MP, URIC, LDH ####[facility] [address] [address]Dr. Donis Mancini Protein [Mass/Vol] 7.5 g/dL Normal 6.4-8.2 [facility] Comment on above: Performed By: #### C MP, URIC, LDH ####[facility] [address] [address]DrGene Mancini Sodium [Moles/Vol] 136 mmol/L Normal 136-145 [facility] Comment on above: Performed By: #### C MP, URIC, LDH ####[facility] [address] [address]Dr. Donis Mancini Urea nitrogen [Mass/Vol] 8.0 mg/dL Normal 7.0-18.0 [facility] Comment on above: Performed By: #### C MP, URIC, LDH ####[facility] [address] [address]Dr. Donis Mancini Urea nitrogen/Creatinine [Mass ratio] 17.4 mg/mg Normal [facility] Comment on above: Performed By: #### C MP, URIC, LDH ####[facility] [address] [place], [place] [address]DrGene Mancini PROTIMEon 08-07-2022 INR Coag (PPP) [Relative time] {INR} Normal [facility] Comment on above: Performed By: #### U AMIC #### [facility] Laboratory [address] [place] [address] Dr. Donis Mancini INR GUIDELINES SEE BELOW Normal [facility] Comment on above: Result Comment: NICCI RED INR: 2.0 - 3.0 CONDITIONS NOT LISTED BELOW 2.5 - 3.5 FOR PROSTHETIC HEART VALVE REPLACEMENT 2.5 - 3.5 RECURRENT THROMBOSIS Performed By: #### U AMIC #### [facility] [address] [address] [address] Donis Mancini PT Coag (PPP) [Time] 9.8 s Normal 9.0-11.6 [facility] Comment on above: Performed By: #### U AMIC #### [facility] Laboratory [address] [place] [address] Dr. Donis Mancini PTTon 08-07-2022 aPTT Coag (Bld) [Time] 28.5 s Normal 22.3-36.2 [facility] Comment on above: Performed By: #### U AMIC #### [facility] [address] [place] [address] Dr. Donis Mancini UA (CLEAN/CATCH) PRODUCE TEAM MEMBER/MICRO I F IND.on 08-07-2022 Bilirubin Ql (U) Negative Normal NEGATIVE [facility] Comment on above: Performed By: #### U AMIC #### [facility] [address] [place] [address] Dr. Donis Mancini Clarity (U) CLEAR Normal CLEAR [facility] Comment on above: Performed By: #### U AMIC #### [facility] [address] [place] [address] Dr. Donis Mancini Color (U) LT. YELLOW Normal YELLOW [facility] Comment on above: Performed By: #### U AMIC #### [facility] [address] [place] [address] Dr. Donis Mancini Glucose Ql (U) Negative Normal NEGATIVE [facility] Comment on above: Performed By: #### U AMIC #### [facility] [address] [place] [address] Dr. Donis Mancini Hemoglobin Ql (U) Negative Normal NEGATIVE [facility] Comment on above: Performed By: #### U AMIC #### [facility] [address] [place] [address] Dr. Donis Mancini Ketones Ql (U) Negative Normal NEGATIVE [facility] Comment on above: Performed By: #### U AMIC #### [facility] [address] [place] [address] Dr. Donis Mancini LEUKOCYTES Negative Normal NEGATIVE [facility] Comment on above: Performed By: #### U AMIC #### [facility] [address] [place] [address] Dr. Donis Mancini Nitrite Ql (U) Negative Normal NEGATIVE [facility] Comment on above: Performed By: #### U AMIC #### [facility] [address] [address] [address] Donis Mancini pH (U) 7.0 [pH] Normal 5-9 [facility] Comment on above: Performed By: #### U AMIC #### [facility] [address] [address] [address] Donis Mancini SPEC GRAVITY <=1.005 Abnormal 1.005-<=1.025 [facility] Comment on above: Performed By: #### U AMIC #### [facility] [address] [address] [address] Donis Mancini UA PROTEIN Negative Normal NEGATIVE/ TRACE [facility] Comment on above: Performed By: #### U AMIC #### [facility] [address] [address] [address] Donis Mancini UR MICRO IND NOT INDICATED Normal [facility] Comment on above: Performed By: #### U AMIC #### [facility] [address] [address] [address] Donis Mancini Urobilinogen Qn (U) 0.2 {Sarah'U}/dL Normal 0.2 - 1. 0 [facility] Comment on above: Performed By: #### U AMIC #### [facility] [address] [address] [address] Donis Mancini URIC ACID SERUMon 08-07-2022 Urate [Mass/Vol] 3.8 mg/dL Normal 2.6-6.0 [facility] Comment on above: Performed By: #### C MP, URIC, LDH ####[facility] [address] [address]Dr. Donis Mancini URINE T PROTEIN CREAT RATIOo n 08-07-2022 UR TOTAL PROTEIN <6.0 Normal <=12.0 [facility] Comment on above: Performed By: #### C T/NGNA #### [facility] [address] [address] [address] Donis Mancini URINE CREAT 13.45 mg/dL Critically low 20.00-300.00 [facility] Comment on above: Performed By: #### C T/NGNA #### [facility] [address] [address] [address] Donis Mancini US PREG BIOPHY W [...] COCO STERN Date: 2022-08-01 08:31 Normal [facility] CHLAMYDIA/GONOCOCCUS INESSA (SW AB/URINE/PAPon 07-31-2022 Chlamydia trachomatis, INESSA Negative Normal Negative [facility] Comment on above: Performed By: #### C T/NGNA #### [facility] [address] [place] [address] Dr. Donis Mancini Neisseria gonorrhoeae, INESSA Negative Normal Negative [facility] Comment on above: Performed By: #### C T/NGNA #### [facility] [address] [place] [address] Dr. Donis Mancini VAGINITIS/VAGINOSIS DNA PROB Domenic 07-31-2022 Mariam species Negative Normal Negative [facility] Comment on above: Performed By: #### V AGINT ####[facility] [address] [address]Dr. Donis Mancini Gardnerella vaginalis Negative Normal Negative [facility] Comment on above: Performed By: #### V AGINT ####[facility] [address] [address]Dr. Donis Mancini Trichomonas vaginalis Negative Normal Negative [facility] Comment on above: Performed By: #### V AGINT ####[facility] [address] [address]Dr. Donis Mancini GROUP B STREP CULTUREon S. agalactiae Ag Ql (Unsp spec) Culture Observations: NEGATIVE FOR GROUP B STREPTOCOCCUS. Normal [facility] Comment on above: Performed By: #### G BSCX #### [facility] [address] [address] [address] Donis Mancini US PREG BIOPHY W [...] by: COCO STERN Date: 2022-07-25 09:41 Normal [facility] US PREG GROWTHon 07-11-2022 US PREG [...] by: ESTEFANY BENNETT Date: 2022-07-11 19:28 Normal [facility] Covid-19 PCR (CVDTB)on 06-26 SARS-CoV-2 (COVID-19) RNA INESSA+probe Ql (Unsp spec) Not detected Normal NOT DETECTED [facility] Comment on above: Result Comment: [...] for this test is supported by the [place] of Health and Human Service's declaration that [...] By: #### C T/NGNA #### [facility] [address] [address] [address] Donis Mancini GTT 3 HR PREGon 06-03-2022 Glucose [Mass/Vol] 94 mg/dL Normal 74-106 [facility] Comment on above: Performed By: #### U AMIC #### [facility] [address] [address] [address] Donis Mancini Glucose [Mass/Vol] 147 mg/dL Normal [facility] Comment on above: Performed By: #### U AMIC #### [facility] [address] [address] [address] Donis Mancini Glucose [Mass/Vol] 159 mg/dL Normal [facility] Comment on above: Performed By: #### U AMIC #### [facility] [address] [address] [address] Donis Mancini Glucose [Mass/Vol] 151 mg/dL Normal The [facility] Comment on above: Performed By: #### U AMIC #### [facility] [address] [place] [address] Dr. Donis Mancini GLUCOSE - 1HRon 05-21-2022 Glucose [Mass/Vol] 141 mg/dL Critically high 74-106 T [facility] Comment on above: Performed By: #### U AMIC #### [facility] [address] [place] [address] Dr. Donis Mancini HEMOGRAM AND PLATELon 2021 Hematocrit (Bld) [Volume fraction] 39.1 % Normal 36.0-48.0 [facility] Comment on above: Performed By: #### U AMIC #### [facility] [address] [place] [address] Dr. Donis Mancini Hemoglobin (Bld) [Mass/Vol] 13.1 g/dL Normal 12.0-16.0 [facility] Comment on above: Performed By: #### U AMIC #### [facility] [address] [place] [address] Dr. Donis Mancini MCH (RBC) [Entitic mass] 32.3 pg Normal 26.7-34.0 [facility] Comment on above: Performed By: #### U AMIC #### [facility] [address] [place] [address] Dr. Donis Mancini MCHC (RBC) [Mass/Vol] 33.5 g/dL Normal 29.9-35.2 [facility] Comment on above: Performed By: #### U AMIC #### [facility] [address] [place] [address] Dr. Donis Mancini MCV (RBC) [Entitic vol] 96.5 fL Normal 81.0-99.0 [facility] Comment on above: Performed By: #### U AMIC #### [facility] [address] [place] [address] Dr. Donis Mancini PLT 220 103/ul Normal 150-450 [facility] Comment on above: Performed By: #### U AMIC #### [facility] [address] [place] [address] Dr. Donis Mancini RBC 4.05 106/ul Critically low 4.20-5.40 [facility] Comment on above: Performed By: #### U AMIC #### [facility] [address] [address] [address] Donis Mancini WBC 12.8 103/ul Critically high 4.0-11.0 [facility] Comment on above: Performed By: #### U AMIC #### [facility] [address] [id number] Donis Mancini US PREG BIOPHYSICAL NO [...] Date: 2022-05-11 06:25 Normal The [facility] CULTURE URINEon 05-10-2022 CULTURE URINE Culture Observations: MODERATE GROWTH OF MIXED GENITAL RAMBO. NO POTENTIAL PATHOGENS SEEN. Normal The [facility] Comment on above: Performed By: #### U RCX #### [facility] [address] [address] [address] Donis Mancini UA RANDOM W/MICROSCOPICon BACTERIA LARGE Abnormal NONE SEEN The [facility] Comment on above: Performed By: #### U AMIC ####[facility] [address] [address]Dr. Donis Mancini Bilirubin Ql (U) Negative Normal NEGATIVE [facility] Comment on above: Performed By: #### U AMIC ####[facility] [address] [address]Dr. Donis Mancini CAST NONE SEEN Normal NONE SEEN The [facility] Comment on above: Performed By: #### U AMIC ####[facility] [address] [id number]. Donis Mancini Clarity (U) CLEAR Normal CLEAR The [facility] Comment on above: Performed By: #### U AMIC ####[facility] [address] [address]Dr. Donis Mancini Color (U) YELLOW Normal YELLOW The [facility] Comment on above: Performed By: #### U AMIC ####[facility] [address] [address]Dr. Donis Mancini Crystals LM Nom (Urine sed) NONE SEEN Normal NONE SEEN [facility] Comment on above: Performed By: #### U AMIC ####[facility] [address] [address]Dr. Donis Mancini Epithelial cells LM Ql (Urine sed) MODERATE Abnormal NONE SEEN /RARE The [facility] Comment on above: Performed By: #### U AMIC ####[facility] [address] [address]Dr. Donis Mancini Glucose Ql (U) 250 mg/dl Abnormal NEGATIVE The [facility] Comment on above: Performed By: #### U AMIC ####[facility] [address] [place], [place] [address]Dr. Donis Mancini Hemoglobin Ql (U) TRACE-INTACT Abnormal NEGATIVE [facility] Comment on above: Performed By: #### U AMIC ####[facility] Alb[address] [place], [place] [address]Dr. Donis Mancini Ketones Ql (U) Negative Normal NEGATIVE The [facility] Comment on above: Performed By: #### U AMIC ####[facility] [address] [place], [place] [address]Dr. Donis Mancini LEUKOCYTES LARGE Abnormal NEGATIVE The [facility] Comment on above: Performed By: #### U AMIC ####[facility] [address] [place], [place] [address]Dr. Donis Mancini MUCOUS NONE SEEN Normal NONE SEEN [facility] Comment on above: Performed By: #### U AMIC ####[facility] [address] [address]Dr. Donis Mancini Nitrite Ql (U) Negative Normal NEGATIVE The [facility] Comment on above: Performed By: #### U AMIC ####[facility] [address] [address]Dr. Donis Mancini pH (U) 6.0 [pH] Normal 5-9 The [facility] Comment on above: Performed By: #### U AMIC ####[facility] [address] [address]Dr. Donis Mancini RBC 2-5 Abnormal 0-2 The [facility] Comment on above: Performed By: #### U AMIC ####[facility] [address] [address]Dr. Donis Mancini SPEC GRAVITY <=1.005 Abnormal 1.005-<=1.025 [facility] Comment on above: Performed By: #### U AMIC ####[facility] [address] [place], [place] [address]Dr. Donis Mancini UA PROTEIN Negative Normal NEGATIVE/ TRACE The [facility] Comment on above: Performed By: #### U AMIC ####[facility] Cx[address] [place], [place] [address]Dr. Donis Mancini Urobilinogen Qn (U) 0.2 {Sarah'U}/dL Normal 0.2 - 1. 0 The [facility] Comment on above: Performed By: #### U AMIC ####[facility] [address] [place], [place] [address]Dr. Donis Mancini WBC 10-20 Abnormal NONE SEEN The [facility] Comment on above: Performed By: #### U AMIC ####[facility] Tab[address] [place], [place] [address]Dr. Donis Mancini CULTURE URINEon 04-27-2022 CULTURE URINE Culture Observations: LIGHT GROWTH OF MIXED GENITAL RAMBO. NO POTENTIAL PATHOGENS SEEN. Normal The [facility] Comment on above: Performed By: #### U RCX ####[facility] [address] [place], [place] [address]Dr. Donis Mancini UA (CLEAN/CATCH) PRODUCE TEAM MEMBER/MICRO I F IND.on 04-27-2022 Bilirubin Ql (U) Negative Normal NEGATIVE The [facility] Comment on above: Performed By: #### U ACSIND, UMICRO ####[facility] [address] [address]Dr. Donis Mancini Clarity (U) CLEAR Normal CLEAR The [facility] Comment on above: Performed By: #### U ACSWENDY UMICRO ####[facility] [address] [address]Dr. Donis Mancini Color (U) LT. YELLOW Normal YELLOW The [facility] Comment on above: Performed By: #### U ACSWENDY UMICRO ####[facility] [address] [address]Dr. Donis Mancini Glucose Ql (U) Negative Normal NEGATIVE The [facility] Comment on above: Performed By: #### U ACSWENDY ICRO ####[facility] [address] [address]Dr. Donis Mancini Hemoglobin Ql (U) Negative Normal NEGATIVE The [facility] Comment on above: Performed By: #### U ACSWENDY ICRO ####[facility] [address] [place], [place] [address]Dr. Donis Mancini Ketones Ql (U) Negative Normal NEGATIVE The [facility] Comment on above: Performed By: #### U ACSWENDY ICRO ####[facility] [address] [place], [place] [address]Dr. Donis Mancini LEUKOCYTES SMALL Abnormal NEGATIVE The [facility] Comment on above: Performed By: #### U ACSWENDY ICRO ####[facility] [address] [place], [place] [address]Dr. Donis Mancini Nitrite Ql (U) Negative Normal NEGATIVE The [facility] Comment on above: Performed By: #### U ACSWENDY ICRO ####[facility] [address] [address]Dr. Donis Mancini pH (U) 7.0 [pH] Normal 5-9 The [facility] Comment on above: Performed By: #### U ACSWENDY UMICRO ####[facility] Rs[address] [place], [place] [address]Dr. Donis Mancini SPEC GRAVITY 1.015 Normal 1.005-<=1.025 [facility] Comment on above: Performed By: #### U ACSWENDY, UMICRO ####[facility] [address] [address]Dr. Donis Mancini UA PROTEIN Negative Normal NEGATIVE/ TRACE The [facility] Comment on above: Performed By: #### U ACSIND, UMICRO ####[facility] [address] [address]Dr. Donis Mancini UR MICRO IND INDICATED Normal The [facility] Comment on above: Performed By: #### U ACSWENDY, UMICRO ####[facility] [address] [address]Dr. Donis Mancini Urobilinogen Qn (U) 0.2 {Sarah'U}/dL Normal 0.2 - 1. 0 The [facility] Comment on above: Performed By: #### U ACSWENDY UMICRO ####[facility] [address] [place], [place] [address]Dr. Donis Mancini URINE MICROSCOPIC ONLYon BACTERIA MODERATE Abnormal NONE SEEN The [facility] Comment on above: Performed By: #### U ACSWENDY ICRO ####[facility] [address] [place], [place] [address]Dr. Donis Mancini Bacteria identified Cx Nom (U) INDICATED Normal The [facility] Comment on above: Performed By: #### U ACSWENDY, UMICRO ####[facility] [address] [address]Dr. Donis Mancini CAST NONE SEEN Normal NONE SEEN The [facility] Comment on above: Performed By: #### U ACSWENDY, UMICRO ####[facility] [address] [address]Dr. Donis Mancini Crystals LM Nom (Urine sed) NONE SEEN Normal NONE SEEN The [facility] Comment on above: Performed By: #### U ACSIND, UMICRO ####[facility] [address] [address]Dr. Donis Mancini Epithelial cells LM Ql (Urine sed) MODERATE Abnormal NONE SEEN /RARE The [facility] Comment on above: Performed By: #### U ACSWENDY UMICRO ####[facility] [address] [place], [place] [address]Mf. Donis Mancini MUCOUS NONE SEEN Normal NONE SEEN The [facility] Comment on above: Performed By: #### U NELSON UMICRO ####[facility] [address] [place], [place] [address]Pq. Donis Mancini RBC NONE SEEN Abnormal 0-2 The [facility] Comment on above: Performed By: #### U ACSWENDY UMICRO ####[facility] [address] [place], [place] [address]Sf. Donis Mancini WBC 2-5 Abnormal NONE SEEN The [facility] Comment on above: Performed By: #### U ACSWENDY UMICRO ####[facility] [address] [place], [place] [address]Yb. Donis Mancini US KIDNEYSon 04-27-2022 US KIDNEYS [...] Date: 2022-04-27 17:48 Normal The [facility] CULTURE URINEon 04-16-2022 CULTURE URINE [...] Trimethoprim/Sulfame thoxazole <=20 S F Normal The [facility] Comment on above: Performed By: #### U RCX #### [facility] [address] [place] [address] Dr. Donis Mancini US PREG ANATOMY SINGLEon [...] ESTEFANY BENNETT Date: 2022-04-12 22:22 Normal The [facility] UA RANDOM W/MICROSCOPICon BACTERIA SMALL Abnormal NONE SEEN The [facility] Comment on above: Performed By: #### U AMIC #### [facility] [address] [place] [address] Dr. Donis Mancini Bilirubin Ql (U) Negative Normal NEGATIVE The [facility] Comment on above: Performed By: #### U AMIC #### [facility] [address] [address] [address] Donis Mancini CAST NONE SEEN Normal NONE SEEN The [facility] Comment on above: Performed By: #### U AMIC #### [facility] [address] [address] [address] Donis Mancini Clarity (U) CLEAR Normal CLEAR The [facility] Comment on above: Performed By: #### U AMIC #### [facility] [address] [place] [address] Dr. Donis Mancini Color (U) LT. YELLOW Normal YELLOW The [facility] Comment on above: Performed By: #### U AMIC #### [facility] [address] [address] [address] Donis Mancini Crystals LM Nom (Urine sed) NONE SEEN Normal NONE SEEN The [facility] Comment on above: Performed By: #### U AMIC #### [facility] [address] [place] [address] Dr. Donis Mancini Epithelial cells LM Ql (Urine sed) FEW Abnormal NONE SEEN /RARE The [facility] Comment on above: Performed By: #### U AMIC #### [facility] [address] [address] [address] Donis Mancini Glucose Ql (U) Negative Normal NEGATIVE The [facility] Comment on above: Performed By: #### U AMIC #### [facility] [address] [address] [address] Donis Mancini Hemoglobin Ql (U) Negative Normal NEGATIVE The [facility] Comment on above: Performed By: #### U AMIC #### [facility] [address] [place] [address] Dr. Donis Mancini Ketones Ql (U) Negative Normal NEGATIVE [facility] Comment on above: Performed By: #### U AMIC #### [facility] [address] [place] [address] Dr. Donis Mancini LEUKOCYTES LARGE Abnormal NEGATIVE The [facility] Comment on above: Performed By: #### U AMIC #### [facility] [address] [place] [address] Dr. Donis Mancini MUCOUS NONE SEEN Normal NONE SEEN The [facility] Comment on above: Performed By: #### U AMIC #### [facility] [address] [address] [address] Donis Mancini Nitrite Ql (U) Negative Normal NEGATIVE The [facility] Comment on above: Performed By: #### U AMIC #### [facility] [address] [place] [address] Dr. Donis Mancini pH (U) 5.5 [pH] Normal 5-9 [facility] Comment on above: Performed By: #### U AMIC #### [facility] [address] [place] [address] Dr. Donis Mancini RBC 0-2 Normal 0-2 [facility] Comment on above: Performed By: #### U AMIC #### [facility] [address] [place] [address] Dr. Donis Mancini SPEC GRAVITY <=1.005 Abnormal 1.005-<=1.025 [facility] Comment on above: Performed By: #### U AMIC #### [facility] [address] [address] [address] Donis Mancini UA PROTEIN Negative Normal NEGATIVE/ TRACE The [facility] Comment on above: Performed By: #### U AMIC #### [facility] [address] [place] [address] Dr. Donis Mancini Urobilinogen Qn (U) 0.2 {Sarah'U}/dL Normal 0.2 - 1. 0 [facility] Comment on above: Performed By: #### U AMIC #### [facility] [address] [place] [address] Dr. Donis Mancini WBC 5-10 Abnormal NONE SEEN The [facility] Comment on above: Performed By: #### U AMIC #### [facility] [address] [place], [place] [address] Dr. Donis Mancini HEP B SURFACE ANTIGEN SCREEN on 01-23-2022 HBsAg Screen Negative Normal Negative The [facility] Comment on above: Performed By: #### U AMIC #### [facility] [address] [id number] [address] Donis Mancini HEPATITIS C VIRUS AB W/ REFL EX QUANTon 01-23-2022 HCV AB 0.1 s/co ratio Normal 0.0-0.9 The [facility] Comment on above: Performed By: #### H CVPCRR ####[facility] [address] [address]Dr. Donis Mancini Interpretation: Comment Normal [facility] Comment on above: Result Comment: Nega tive Not infected with HCV, unless recent infection is suspected or other evidence exists to indicate HCV infection. Performed By: #### H CVPCRR ####[facility] [address] [id number]. Donis Mancini HIV 1 AND 2 WITH REFLEXon HIV Screen 4th Generation wRfx Non-Reactive Normal Non Reactive The [facility] Comment on above: Result Comment: HIV Negative HIV-1/HIV-2 antibodies and HIV-1 p24 antigen were NOT detected. There is no laboratory evidence of HIV infection. Performed By: #### H IV12 ####[facility] [address] [id number]. Donis Mancini RPR QUANTon 01-23-2022 Rapid Plasma Reagin, Quant Non-Reactive Normal NonRea<1:1 [facility] Comment on above: Result Comment: Plea Note: This test does not meet current guidelines for screening and diagnosis of syphilis. This test is intended for following treatment response in patients being treated for syphilis infection. To screen for syphilis infection, a reflex cascade that includes both RPR and a treponema-specific assay should be utilized, such as Treponema pallidum (Syphilis) Screening [place] (147240) or Rapid Plasma Reagin (RPR) Test With Reflex to Quantitative RPR and Confirmatory Treponema pallidum Antibodies (794185). Performed By: #### R PRQ ####[facility] [address] [address]Dr. Donis Mancini RUBELLA AB IGGon 01-23-2022 Rubella Antibodies, IgG 1.60 index Normal Immune >0.99 [facility] Comment on above: Result Comment: Non- immune <0.90 Equivocal 0.90 - 0.99 Immune >0.99 Performed By: #### U AMIC #### [facility] [address] [address] [address] Donis Mancini CBC AUTO DIFFon 01-22-2022 BASO # 0.1 103/ul Normal 0.0-0.1 [facility] Comment on above: Performed By: #### U AMIC #### [facility] [address] [place] [address] Dr. Donis Mancini Basophils/100 WBC (Bld) 0.5 % Normal 0.2-2.0 [facility] Comment on above: Performed By: #### U AMIC #### [facility] [address] [place] [address] Dr. Donis Mancini EO # 0.6 103/ul Normal 0.0-0.7 [facility] Comment on above: Performed By: #### U AMIC #### [facility] [address] [address] [address] Donis Mancini Eosinophils/100 WBC (Bld) 5.1 % Normal 0.9-7.0 [facility] Comment on above: Performed By: #### U AMIC #### [facility] [address] [place] [address] Dr. Donis Mancini Erythrocyte distribution width (RBC) [Ratio] 12.0 % Normal 11.0-15.0 [facility] Comment on above: Performed By: #### U AMIC #### [facility] [address] [place] [address] Dr. Donis Mancini Hematocrit (Bld) [Volume fraction] 45.8 % Normal 36.0-48.0 [facility] Comment on above: Performed By: #### U AMIC #### [facility] [address] [address] [address] Donis Mancini Hemoglobin (Bld) [Mass/Vol] 15.3 g/dL Normal 12.0-16.0 [facility] Comment on above: Performed By: #### U AMIC #### [facility] [address] [address] [address] Donis Mancini IG # 0.03 10e3/ul Normal 0.00-0.03 [facility] Comment on above: Performed By: #### U AMIC #### [facility] [address] [address] [address] Donis Mancini IG % 0.3 % Normal 0.0-0.5 [facility] Comment on above: Performed By: #### U AMIC #### [facility] [address] [address] [address] Donis Mancini LYMPH # 1.7 103/ul Normal 1.2-3.8 [facility] Comment on above: Performed By: #### U AMIC #### [facility] [address] [address] [address] Donis Mancini Lymphocytes/100 WBC (Bld) 15.9 % Critically low 20.5-60.0 [facility] Comment on above: Performed By: #### U AMIC #### [facility] [address] [address] [address] Donis Mancini MANUAL DIFF REQ NO Normal [facility] Comment on above: Performed By: #### U AMIC #### [facility] [address] [address] [address] Donis Mancini MCH (RBC) [Entitic mass] 31.5 pg Normal 26.7-34.0 [facility] Comment on above: Performed By: #### U AMIC #### [facility] [address] [address] [address] Donis Mancini MCHC (RBC) [Mass/Vol] 33.4 g/dL Normal 29.9-35.2 [facility] Comment on above: Performed By: #### U AMIC #### [facility] [address] [address] [address] Donis Mancini MCV (RBC) [Entitic vol] 94.2 fL Normal 81.0-99.0 [facility] Comment on above: Performed By: #### U AMIC #### [facility] [address] [address] [address] Donis Mancini MONO # 0.6 103/ul Normal 0.3-0.8 [facility] Comment on above: Performed By: #### U AMIC #### [facility] [address] [address] [address] Donis Mancini Monocytes/100 WBC (Bld) 5.8 % Normal 1.7-12.0 [facility] Comment on above: Performed By: #### U AMIC #### [facility] [address] [address] [address] Donis Mancini NEUT # 7.8 103/ul Critically high 1.4-6.5 [facility] Comment on above: Performed By: #### U AMIC #### [facility] [address] [address] [address] Donis Mancini Neutrophils/100 WBC (Bld) 72.4 % Normal 43.0-75.0 [facility] Comment on above: Performed By: #### U AMIC #### [facility] [address] [address] [address] Donis Mancini Platelet mean volume (Bld) [Entitic vol] 9.9 fL Normal 9.5-13.5 [facility] Comment on above: Performed By: #### U AMIC #### [facility] [address] [address] [address] Donis Mancini PLT 281 103/ul Normal 150-450 [facility] Comment on above: Performed By: #### U AMIC #### [facility] [address] [address] [address] Donis Mancini RBC 4.86 106/ul Normal 4.20-5.40 [facility] Comment on above: Performed By: #### U AMIC #### [facility] [address] [address] [address] Donis Mancini WBC 10.8 103/ul Normal 4.0-11.0 [facility] Comment on above: Performed By: #### U AMIC #### [facility] [address] [address] [address] Donis Mancini CULTURE URINEon 01-22-2022 CULTURE URINE Culture Observations: LIGHT GROWTH OF MIXED GENITAL RAMBO. NO POTENTIAL PATHOGENS SEEN. Normal [facility] Comment on above: Performed By: #### U RCX #### [facility] [address] [place] [address] Dr. Donis Mancini GLYCOHEMOGLOBIN A1Con 2021 ADA RECOMMENDATION SEE BELOW Normal [facility] Comment on above: Result Comment: ADA RECOMMENDED LIMIT 4.0 - 6.0 ADA THERAPEUTIC TARGET < 7.0 ACTION SUGGESTED > 7.0 Performed By: #### A 1C ####[facility] [address] [place], [place] [address]Dr. Donis Mancini Glucose [Mass/Vol] 100 mg/dL Normal [facility] Comment on above: Performed By: #### A 1C ####[facility] [address] [place], [place] [address]Dr. Donis Mancini HbA1c (Bld) [Mass fraction] 5.1 % Normal 4.5-6.2 [facility] Comment on above: Performed By: #### A 1C ####[facility] [address] [address]DrGene Mancini SEAN BOX TEST PT SEND OUTo n 01-22-2022 SENT TO REF LAB 01/22/2022 Normal [facility] Comment on above: Performed By: #### N BOX ####[facility] [address] [place], [place] [address]Dr. Donis Mancini TYPE AND SCREENon 01-22-2022 TYPE AND SCREEN Negative Normal [facility] Comment on above: Performed By: #### T NS #### [facility] [address] [place] [address] Dr. Donis Mancini US PREG TVon 01-17-2022 [...] by: COCO STERN Date: 2022-01-17 09:34 Normal [facility] Provider Letteron 04-06-2021 Provider Letter April 06, 2021 Dear Vimal, We have been trying to reach you with no success. It is important that you return our call regarding your appointment upon receiving this letter. Also, at the time of your call, please provide us with your current information. Thank you for your prompt attention to this matter. Sincerely, [facility] [address] [place] [address] Normal [facility] Ambulatory Clinical Summaryo n 03-10-2021 Ambulatory Clinical Summary {[id number]}CD:[id number] Normal [facility] Ambulatory Clinical Summaryo n 03-05-2021 Ambulatory Clinical Summary {[id number]}CD:[id number] Normal [facility] Gynecology Phone Visit- Tele healthon 03-05-2021 Gynecology [...] only communication with the patient located at [address] [place] [phone], with no one else. 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 CODING DATE: 12/18/2020 FINAL [facility] STATUS: Home (Routine DC) PAYOR: Baldwin ADMIT DX: REASON FOR VISIT DX: U07.1 [...] CphT Date Saved: 12/18/2020 12:44 pm Normal [facility] Physician Orderon 12-16-2020 Physician Order [id number] #[id number]:127 Normal [facility] Rapid COVID Antigen (MC)on 12-16-2020 Rapid COV Int NEG Ctl Pass Normal [facility] Comment on above: Performed By: #### 2 [id number] #### [facility] Laboratory [address] [place] [address] Rapid COV Int POS Ctl Pass Normal [facility] Comment on above: Performed By: #### 2 [id number] #### [facility] [address] [place] [address] SARS-CoV-2 (COVID-19) RNA INESSA+probe Ql (Unsp spec) Detected Abnormal Not Detected [facility] Comment on above: Result Comment: Left a message for callback. 12/16/2020 11:42:47 EDT Results faxed to infection control. The [employer] Veritor? System for Rapid Detection of SARS-CoV-2 [...] under an Emergency Use Authorization. In the [facility], this test has not been FDA cleared [...] or revoked sooner. Performed By: #### 2 [id number] #### [facility] [address] [place] [address] Employed in Healthcare Unknown Normal [facility] Comment on above: Performed By: #### 2 [id number] #### [facility] [address] [place] [address] First Test Unknown [facility] Comment on above: Performed By: #### 2 [id number] #### [facility] [address] [place] [address] Hospitalized? NO Normal [facility] Comment on above: Performed By: #### 2 [id number] #### [facility] [address] [place] [address] ICU NO Normal [facility] Comment on above: Performed By: #### 2 [id number] #### [facility] [address] [place] [address] ? Unknown Normal [facility] Comment on above: Performed By: #### 2 [id number] #### [facility] [address] [id number] Resides in a Congregate Care Setting Unknown Normal [facility] Comment on above: Performed By: #### 2 [id number] #### [facility] [address] [place] [address] Symptomatic as defined by CDC YES Normal [facility] Comment on above: Performed By: #### 2 [id number] #### [facility] [address] [place] [address] Ambulatory Clinical Summaryo n 11-25-2020 Ambulatory Clinical Summary {[id number]}CD:[id number] Normal [facility] Vital Signs Date Time Vital Sign Value Performing Clinician Facility 06-29-2024 09:12-0400 Body mass index (BMI) [Ratio] 24.58 kg/m2 [facility] 06-29-2024 09:12-0400 Body weight 62.94 kg [facility] 06-29-2024 09:12-0400 Diastolic blood pressure 72 mm[Hg] [facility] 06-29-2024 09:12-0400 Systolic blood pressure 122 mm[Hg] [facility] 12-26-2022 13:45-0400 Body height 160.02 cm Jennifer Betzaida Other [facility] Other 12-26-2022 13:45-0400 Body mass index (BMI) [Ratio] 27.45 kg/m2 Jennifer Betzaida Other [facility] Other 12-26-2022 13:45-0400 Body temperature 97 [degF] Jennifer Betzaida Other [facility] Other 12-26-2022 13:45-0400 Body weight 70.31 kg Jennifer Betzaida Other [facility] Other 12-26-2022 13:45-0400 Diastolic blood pressure 89 mm[Hg] Jennifer Huston Other [facility] Other 12-26-2022 13:45-0400 Respiratory rate 18 /min Jennifer Huston Other [facility] Other 12-26-2022 13:45-0400 SaO2% (BldA) [Mass fraction] 100 % Jennifer Huston Other [facility] Other 12-26-2022 13:45-0400 Systolic blood pressure 135 mm[Hg] Jennifer Huston Other [facility] Other Encounters Encounter Date Encounter Type Care [...] Start: 12-26-2022 End: 12-26-2022 ambulatory Jennifer Huston [employer] Other Start: 12-26-2022 End: 12-26-2022 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 Work Phone: Start: 08-10-2022 Delivery [...] AM EST Routine [facility] [address] [id number] Mackenzie Rodriguez, DO [address] [place] [place] [address] [facility] Start: 06-29-2024 End: 06-29-2025 ABO/Rh ABO/Rh Lab Routine Missed menses , unspecified gestational age Expected: 06/29/2024 (Approximate), Expires: 06/29/2025 [facility] Comment on above: Expected: 06/29/2024 (Approximate), Expires: 06/29/2025 Start: 06-29-2024 End: 06-29-2025 Blood type and Indirect antibody screen panel - Blood Type and screen Lab Routine Missed menses , unspecified gestational age Expected: 06/29/2024 (Approximate), Expires: 06/29/2025 [facility] Work Phone: Comment on above: Expected: 06/29/2024 (Approximate), Expires: 06/29/2025 Start: 06-29-2024 End: 06-29-2025 Drugs of abuse panel - Urine by Screen method Rapid drug screen, urine Lab Routine , unspecified gestational age Encounter for supervision of normal first in first trimester Expected: 06/29/2024 (Approximate), Expires: 06/29/2025 [facility] Comment on above: Expected: 06/29/2024 (Approximate), Expires: 06/29/2025 Start: 06-29-2024 End: 06-29-2025 US Pelvis transvaginal US OB transvaginal Imaging Routine Missed menses Expected: 06/29/2024 (Approximate), Expires: 06/29/2025 [facility] Comment on above: Expected: 06/29/2024 (Approximate), Expires: 06/29/2025 Start: 05-27-2024 Influenza vaccination Influenza Vacc ine (#1) [facility] Bacteria identified in Urine by Culture Urine culture Microbiology Routine Missed menses Ordered: 06/29/2024 [facility] Comment on above: Ordered: 06/29/2024 CBC W Auto Different ial panel - Blood CBC and differential Lab Routine Missed menses , unspecified gestational age Ordered: 06/29/2024 [facility] Comment on above: Ordered: 06/29/2024 Hemoglobin A1c/Hemoglobin.total in Blood Hemoglobin A1c Lab Routine Missed menses , unspecified gestational age Ordered: 06/29/2024 [facility] Comment on above: Ordered: 06/29/2024 Hepatitis B virus surface Ag [Presence] in Serum or Plasma by Immunoassay Hepatitis B surface antigen Lab Routine Missed menses , unspecified gestational age Ordered: 06/29/2024 [facility] Comment on above: Ordered: 06/29/2024 Hepatitis C virus Ab [Presence] in Serum or Plasma by Immunoassay Hepatitis C antibody Lab Routine Missed menses , unspecified gestational age Ordered: 06/29/2024 [facility] Comment on above: Ordered: 06/29/2024 HIV-1/HIV-2 antigen/antibody combination immunoassay HIV-1 and HIV-2 antibodies Lab Routine Missed menses , unspecified gestational age Ordered: 06/29/2024 [facility] Comment on above: Ordered: 06/29/2024 Reagin Ab [Presence] in Serum by RPR RPR Lab Routine Missed menses , unspecified gestational age Ordered: 06/29/2024 [facility] Comment on above: Ordered: 06/29/2024 Rubella antibody, IgG Rubella an tibody, IgG Lab Routine Missed menses , unspecified gestational age Ordered: 06/29/2024 [facility] Comment on above: Ordered: 06/29/2024 Immunizations Immunization Date Immunization Notes Care Provider Ryne abrams [birth year]2003 influenza virus vacc ine, unspecified formulation [facility] Payers Date Payer Category Payer Medicaid [employer] [employer] [id number] 2023-Present [address] [place] [id number] 2023 Medicaid (Managed Care) [employer] [id number] 2021 [facility] [id number] 2021 Unknown BCBS BCBS [id number] [id number] 2021-Present [phone] [address] [place] [address] 1.2.840.297926.1.13.693.2. 7.3.268712.315 2001 Unknown [id number] 2.16.840.1.250056.3.579.2. 593 2001 Unknown [id number] 2.16.840.1.062954.3.579.2. 593 2001 Unknown [id number] 2.16.840.1.785210.3.579.2. 593 2001 Unknown [id number] 2.16.840.1.317613.3.579.2. 593 2001 Unknown [id number] 2.16.840.1.010614.3.579.2. 593 2001 Unknown [id number] 2.16.840.1.596934.3.579.2. 593 2001 Unknown [id number] 2.16.840.1.205314.3.579.2. 593 2001 Unknown [id number] 2.16.840.1.277637.3.579.2. 593 2001 Unknown [id number] 2.16.840.1.468361.3.579.2. 593 2001 Unknown [id number] 2.16.840.1.152846.3.579.2. 593 2001 Unknown [id number] 2.16.840.1.045956.3.579.2. 593 2001 Unknown [id number] 2.16.840.1.510032.3.579.2. 593 2001 Unknown [id number] 2.16.840.1.299444.3.579.2. 593 2001 Unknown [id number] 2.16.840.1.194034.3.579.2. 593 2001 Unknown [id number] 2.16.840.1.122502.3.579.2. 593 2001 Unknown [id number] 2.16.840.1.809588.3.579.2. 593 2001 Unknown [id number] 2.16.840.1.944614.3.579.2. 593 2001 Unknown [id number] 2.16.840.1.756532.3.579.2. 593 2001 Unknown [id number] 2.16.840.1.440856.3.579.2. 593 2001 Unknown [id number] 2.16.840.1.225919.3.579.2. 593 2001 Unknown [id number] 2.16.840.1.488629.3.579.2. 593 2001 Unknown [id number] 2.16.840.1.165566.3.579.2. 1259 2001 Unknown [id number] 2.16.840.1.498781.3.579.2. 1259 1959 Self-pay 1959 Unknown [id number] 1959 Unknown [id number] Unknown [id number] 2.16.840.1.406846.3.579.2. 593 Unknown [id number] 2.16840.1.110819.3.579.2. 531 Social History Date Type Detail Facility Start: 10-13-2023 Sex Assigned At N [employer] Other Start: 2000 Sex Assigned At Female F [facility] Start: 10-13-2023 Tobacco smoking stat us [...] blood transfusion Lead poisoning Nonsmoker Post depression ([facility]) Family History Problem Relation Name Age [...] or undercooked meat, and stay away from [facility]. Patient has also been advised to not [...] by: Whitney Peacock documented in this encounter [facility] Evaluation note 12-26-2022 Note [...] appointment to be seen soon as possible [facility] Other Evaluation note Note Date & Type Note Facility Evaluation note No assessment information availa [facility] Work Phone: Evaluation note Note Date & [...] section and content) DATE CREATED AUTHOR 09/24/2021 [facility] DATE CREATED AUTHOR AUTHOR'S ORGANIZ ATION 12/07/2022 [facility] DATE CREATED AUTHOR AUTHOR'S ORGANIZ ATION 01/08/2023 [facility] DATE CREATED AUTHOR AUTHOR'S ORGANIZ ATION 08/07/2024 [facility] dical Specialists EPIC REASON FOR VISIT (unrecogniz ed section and content) Reason Comments Initial Visit Care Teams (unrecognized sec tion and content) Team Status: Inactive Member Role Status Dates Jennifer 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 [facility] [employer] [facility]. provides no warranty or guarantee of the accuracy or completeness of information in this document.
[2024-08-10 07:56] LABS: Basophils Percent Auto 0.5 % (0.2-2.0); Eosinophils Absolute Auto 0.6 10^3/uL (0.0-0.7); Eosinophils Percent Auto 6.2 % (0.9-7.0); Hematocrit 43.8 % (36.0-48.0); Hemoglobin 14.8 g/dL (12.0-16.0); Immature Granulocytes Abs Auto 0.02 10^3/uL (0.00-0.03); Immature Granulocytes Pct Auto 0.2 % (0.0-0.5); Lymphocytes Percent Auto 22.1 % (20.5-60.0); Mean Corpuscular HGB Conc 33.8 g/dL (29.9-35.2); Mean Corpuscular Hemoglobin 31.7 pg (26.7-34.0); Mean Corpuscular Volume 93.8 fL (81.0-99.0); Monocytes Absolute Auto 0.5 10^3/uL (0.3-0.8); Monocytes Percent Auto 5.3 % (1.7-12.0); Neutrophils Absolute Auto 5.8 10^3/uL (1.4-6.5); Neutrophils Percent Auto 65.7 % (43.0-75.0); Platelet Count 236 10^3/uL (150-450); Red Blood Count 4.67 10^6/uL (4.20-5.40); Red Cell Distribution Width 11.9 % (11.0-15.0); White Blood Count 8.9 10^3/uL (4.0-11.0)
--- NOTE | 2024-08-10 08:09 | US_ITS ---
The [address] [address] Patient Name: VIMAL PIZANO MRN: [id number] date: 2000 Sex: F Assigned Patient Location: [facility] Current Patient Location: [facility] Accession/Order Number: [id number] Exam Date: 08/10/2024 08:10 Report Date: 08/10/2024 08:44 At the request of: MACKENZIE SANDERSON Procedure: US OB transvaginal EXAMINATION: US OB transvaginal HISTORY: preop for DC for missed COMPARISON: Ultrasound OB transvaginal 08/02/2024, 06/29/2024 FINDINGS: GESTATIONAL SAC: Present YOLK SAC: Present POLE: Present CARDIAC: Absent UTERUS: Normal size and appearance. OVARIES: Right: Not evaluated. Left: Not evaluated. OTHER: None. AGE BY LMP: 13 weeks 1 day LYDIA BY LMP: 02/14/2025 AGE BY US CRL: 6 weeks 3 days LYDIA BY US CRL: 04/02/2025 US/US OB transvaginal IMPRESSION: 1. Intrauterine measuring 6 weeks 3 days today's ultrasound; no detectable heartbeat. ( pole length was consistent with 8 weeks 0 days on 08/02/2024 and 7 weeks 1 day on 06/29/2024.) Electronically authenticated by: ESTEFANY BENNETT Date: 08/10/2024 08:44
[2024-08-10 08:30] LABS: HCG Quantitative 240 mIU/mL
[2024-08-10] MEDS: LACTATED RINGER'S SOLUTION 1,000 ML 50 ML IV (08:35)
--- NOTE | 2024-08-10 10:05 | PM.ONB ---
Brief Operative Note Date of procedure: 08/10/24 Pre-op diagnosis general: first trimester missed Post-op diagnosis: same as pre-op Procedure: NAME OF PROCEDURE: [D&C suction ] PROCEDURE: The patient was taken back to the OR where she was given general anesthesia without difficulty. She was then placed in dorsal lithotomy position, prepped and draped in the normal sterile fashion. A weighted speculum was placed in the patient's vagina and the anterior lip of the cervix was identified and grasped with a single-tooth tenaculum. The patient was then gently dilated using Hegar dilators after we had sounded roughly to 9 cm. The suction curette was then tested. The suction curette was then placed in the patient's uterus and products of conception were removed using an 10-New Zealander suction curette. ?Excellent hemostasis was noted. The patient tolerated the procedure well. Sponge, lap, and needle counts were correct x 2. All instruments were then removed from the patient's vagina. The patient was taken to the Recovery Room in stable condition. ?? Anesthesia: VENANCIOA Surgeon: Jose Rodriguez Estimated blood loss (mL): 50 Pathology: other (poc) Condition: stable Disposition: PACU Urinary Catheter Management Urinary Catheter Management Urethral: Cath placed during this visit: no
== END 2024-08-10 11:32 | disposition home or self-care (01) ==
PROVIDERS: PCP Nurse Practitioner Family; Visit Provider Obstetrics & Gynecology
PROC: (CPT 1965; principal; 2024-08-10 09:05)
DX: O02.1 Missed abortion (principal)
CPT/HCPCS: 59820; 36415; 76817; 84702; 85025; 88305; J1100; J2250; J2405; J2590; J2704; J3010

== ENCOUNTER 2024-08-18 10:41 | Outpatient (RCR) | payer BC, OTHER, SELFPAY ==
[2024-08-18 11:30] LABS: HCG Quantitative 6 mIU/mL
== END 2024-09-25 23:59 | disposition home or self-care (01) ==
LOC: LAB 10:41
PROVIDERS: PCP Nurse Practitioner Family; Visit Provider Obstetrics & Gynecology
DX: O03.9 Complete or unspecified spontaneous abortion without complication (principal)
CPT/HCPCS: 36415; 84702

== ENCOUNTER 2024-11-19 16:31 | Outpatient (RCR) | payer BC, OTHER, SELFPAY ==
--- OUTSIDE RECORDS SUMMARY | 2024-11-19 16:46 | XMS_ITS | CCD ---
Author Organization [facility] Care Team Providers Care Auto Body Man Name Role Phone MICHAEL ., DR MANN [...] Unavailable MISC, DR DOMINIQUE Primary Care Unavailable NEW SHARON, DR COCO Danielle Consulting Unavailable MICHAEL ., DR MANN Consulting Unavailable MICHAEL ., DR MANN Admitting Unavailable MICHAEL ., DR MANN Attending Unavailable MISC, DR DOMINIQUE Primary Care Unavailable MICHAEL ., DR MANN Consulting Unavailable MICHAEL ., DR MANN Admitting Unavailable MICHAEL ., DR MANN Attending Unavailable MISC, DR DOMINIQUE Primary Care Unavailable NEW SHARON, DR COCO Danielle Consulting Unavailable MICHAEL ., DR MANN Consulting Unavailable MICHAEL ., DR MANN Admitting Unavailable MICHAEL ., DR MANN Attending Unavailable MISC, DR DOMINIQUE Primary Care Unavailable MICHAEL ., DR MANN Consulting Unavailable ZIEBER, DR SETEFANY Zurita Consulting Unavailable MICHAEL ., DR MANN [...] Unavailable MICHAEL ., DR MANN Consulting Unavailable CARIDAD NGUYEN Admitting Unavailable CARIDAD NGUYEN Attending Unavailable DONALD, DR ESTEFANY Zurita Consulting Unavailable CARIDAD NGUYEN Consulting Unavailable Jennifer Huston Unavailable JEFFERY Huston Attending Provider Vaishali Zapata MD Primary Care Provider Unavai lable NO FAMILY, PHYSICIAN Primary Care Provider Unava ilable Mackenzie Rodriguez DO Attending Provider Unallocated Rey GREENBERG Provider Primary Care Provi krissy NO FAMILY, PHYSICIAN Primary Care Unavailable Mackenzie Rodriguez Attending Unavailable Mackenzie Rodriguez Admitting Unavailable MACKENZIE RODRIGUEZ Attending Unavailable ROSSANA LEACH Attending Unavailable Medications Current Medications Medication Drug Class(es) Dates Sig (Normalized) Sig (Original) ondansetron 4 mg oral tablet (10 sources) Serotonin-3 Receptor Antagonist Start: 06-29-2024 End: 08-20-2024 take 1 tablet by mouth every six hours as needed for nausea and vomiting and nausea and nausea ondansetron (Zofran) 4 MG tablet Indications: Nausea Take 1 tablet (4 mg) by mouth every 6 (six) hours if needed for nausea or vomiting for up to 120 doses Take 1 tablet by mouth every 6 hours as needed for nausea. 30 tablet 3 06/29/2024 08/20/2024 Discontinued (1 source) Active Problems Active Problems Problem [...] Translations: [Nausea] Onset: 07-07-2022 06-29-2024 Episodic Other aftercare (2 sources) Surgical follow-up; Translations: [Encounter for follow-up examination after completed treatment for conditions other than malignant neoplasm] 08-20-2024 Episodic Other connective tissue disease (1 source) [...] 8 weeks gestation of ] 06-29-2024 Episodic Spontaneous (2 sources) Miscarriage; Translations: [Complete or unspecified spontaneous without complication] 08-06-2024 Episodic Unclassified (1 source) CONTACT W/AND (SUSP) EXPOS COVID-19; Translations: [CONTACT W/AND (SUSP) EXPOS COVID-19] Onset: 08-25-2022 Unclassified (3 sources) OT SPCF DIS/COND COMPL ; Translations: [OT SPCF DIS/COND COMPL ] Onset: 05-01-2022 Past or Other Problems Problem Classification Problem [...] source) OTH SPCF DIS/COND COMPL ; Translations: [[facility] SPCF DIS/COND COMPL ] Onset: 04-27-2022 Urinary tract infections (5 sources) Urinary tract infection, site not specified; Translations: [UTI SITE NOT SPECIFIED] Onset: 05-10-2022 Episodic Viral infection (1 source) Viral infection, unspecified; Translations: [VIRAL INFECTION UNSPECIFIED] Onset: 07-07-2022 Episodic Results Test Name Value Interpretation Reference Range Facility [facility] PREG QUANT HCGon 024 HCG QUANTITATIVE 6 mIU/mL [facility] Comment on above: 5-50 0.2-1 WEEK 50-500 1-2 WEEKS 100-5,000 2-3 WEEKS 500-10,000 3-4 WEEKS 1,000-50,000 4-5 WEEKS 10,000-100,000 5-6 WEEKS 15,000-200,000 6-8 WEEKS 10,000-100,000 2-3 MONTHS [facility] e ALL CBC WITH AUTO DIFFon BASOPHILS ABSOLUTE AUTO 0 [facility] Basophils/100 WBC (Bld) 0.5 % 0.2 - 2.0 % [facility] Eosinophils/100 WBC (Bld) 6.2 % 0.9 - 7.0 % [facility] Erythrocyte distribution width (RBC) [Ratio] 11.9 % 11.0 - 15.0 % [facility] Hematocrit (Bld) [Volume fraction] 43.8 % 36.0 - 48.0 % [facility] e Hemoglobin (Bld) [Mass/Vol] 14.8 g/dL 12.0 - 16.0 g/dL [facility] IMMATURE GRANULOCYTES ABS AUTO 0.02 [facility] Immature granulocytes/100 WBC (Bld) 0.2 % 0.0 - 0.5 % [facility] LYMPHOCYTES ABSOLUTE AUTO 2 [facility] Lymphocytes/100 WBC (Bld) 22.1 % 20.5 - 60.0 % [facility] MCH (RBC) [Entitic mass] 31.7 pg 26.7 - 34.0 pg [facility] MCHC (RBC) [Mass/Vol] 33.8 g/dL 29.9 - 35.2 g/dL [facility] MCV (RBC) [Entitic vol] 93.8 fL 81.0 - 99.0 fL [facility] MONOCYTES ABSOLUTE AUTO 0.5 [facility] [employer] Monocytes/100 WBC (Bld) 5.3 % 1.7 - 12.0 % [facility] NEUTROPHILS ABSOLUTE AUTO 5.8 [facility] [employer] Neutrophils/100 WBC (Bld) 65.7 % 43.0 - 75.0 % [facility] [employer] Platelet mean volume (Bld) [Entitic vol] 10 fL 9.5 - 13.5 fL [facility] EO # 0.6 [facility] PLT 236 [facility] RBC 4.67 [facility] WBC 8.9 [facility] [place] 08-10-2024 L Specimen: [id number] Received: 08/10/24 Status: CAROL Hoang Num: [id number] Spec Type: Surgical Subm Dr: Mackenzie Rodriguez Tissues: A Products of Conception - Spontaneous or Missed (CONTENTS OF CONCEPT Procedures: Odell CHAIDEZ/Agusto L4 Age/ Patient Sex Location Account Attending Physician Amber Funes/F LABELL [id number] Mackenzie Rodriguez SPEC NUM: [id number] RECD: 08/10/24 STATUS: CAROL HOANG NUM: [id number] CAROLIN: 08/10/[address] [facility] [address]: Mackenzie Rodriguez ENTERED: 08/10/24 [facility] DR: Vignesh Morataya SPEC TYPE: Surgical DEPT: MONICA ALTMAN ENTERED BY: [id number] RECV BY: [id number] ORDERED: HE/2, Gross/Micro L4 ORDERED: HE/2, Gross/Micro L4 Pathological Diagnosis Products of conception: Immature chorionic villi and decidua, consistent with products of conception. Clinical Information Missed Gross Description Part A is received in formalin labeled with the patients name, date of , and contents of conception is a suction bag with fragments of carranza-pink delicate tissue admixed with hemorrhagic material, 7.5 x 5 x 2 cm in aggregate. Within the hemorrhagic material are portions of identifiable chorionic villi and decidua. No tissue is identified. Environmental Science Instructor sections of the chorionic villi are submitted in cassette A1 with passenger service representative sections of the decidua is submitted in cassette A2. (2, ss, [id number]) CPT Codes 37948 Specimen: [id number] Received: 08/10/24 Status: CAROL Hoang Num: [id number] Spec Type: Surgical Subm Dr: Mackenzie Rodriguez Tissues: A Products of Conception - Spontaneous or Missed (CONTENTS OF CONCEPT Procedures: HE/2, Gross/Micro L4 Patient: Amber Funes [id number] (Continued) Signed (signature on file) Josh Aragon MD 08/13/24 1647 Normal [facility] TB PREG QUANT HCGon 08-10- 024 HCG QUANTITATIVE 240 mIU/mL [facility] Comment on above: 5-50 0.2-1 WEEK 50-500 1-2 WEEKS 100-5,000 2-3 WEEKS 500-10,000 3-4 WEEKS 1,000-50,000 4-5 WEEKS 10,000-100,000 5-6 WEEKS 15,000-200,000 6-8 WEEKS 10,000-100,000 2-3 MONTHS [facility] e ALL CBC WITH AUTO DIFFon BASOPHILS ABSOLUTE AUTO 0.1 [facility] Basophils/100 WBC (Bld) 0.5 % 0.2 - 2.0 % [facility] Eosinophils/100 WBC (Bld) 2.8 % 0.9 - 7.0 % [facility] Erythrocyte distribution width (RBC) [Ratio] 11.9 % 11.0 - 15.0 % [facility] Hematocrit (Bld) [Volume fraction] 44.7 % 36.0 - 48.0 % [facility] [Mass/Vol] 15.3 g/dL 12.0 - 16.0 g/dL [facility] IMMATURE GRANULOCYTES ABS AUTO 0.03 [facility] Immature granulocytes/100 WBC (Bld) 0.3 % 0.0 - 0.5 % [facility] Interpretation and review of laboratory results Abnormal [facility] LYMPHOCYTES ABSOLUTE AUTO 1.6 [facility] Lymphocytes/100 WBC (Bld) 14.9 % Low 20.5 - 60.0 % [facility] MCH (RBC) [Entitic mass] 31.7 pg 26.7 - 34.0 pg [facility] MCHC (RBC) [Mass/Vol] 34.2 g/dL 29.9 - 35.2 g/dL [facility] MCV (RBC) [Entitic vol] 92.7 fL 81.0 - 99.0 fL [facility] MONOCYTES ABSOLUTE AUTO 0.4 [facility] Monocytes/100 WBC (Bld) 3.7 % 1.7 - 12.0 % [facility] NEUTROPHILS ABSOLUTE AUTO 8.2 High [facility] Neutrophils/100 WBC (Bld) 77.8 % High 43.0 - 75.0 % [facility] Platelet mean volume (Bld) [Entitic vol] 10 fL 9.5 - 13.5 fL [facility] EO # 0.3 [facility] e [facility] PLT 263 [facility] RBC 4.82 [facility] e [facility] WBC 10.6 [facility] No Panel Informationon 07-21 [facility] e [facility] DRUG SCREEN RAPID (URINE )on 07-21-2024 AMPHETAMINE SCREEN URINE Negative NEGATIVE [facility] BARBITURATES SCREEN URINE Negative NEGATIVE [facility] BENZODIAZEPINES SCREEN URINE Negative NEGATIVE [facility] BUPRENORPHINE SCREEN URINE Negative NEGATIVE [facility] Comment on above: DRUG CLASS TEST [...] 300 ng/mL CANNABINOID SCREEN URINE Negative NEGATIVE [facility] COCAINE SCREEN URINE Negative NEGATIVE [facility] METHADONE SCREEN URINE Negative NEGATIVE [facility] METHAMPHETAMINES SCREEN URINE Negative NEGATIVE [facility] OPIATE SCREEN URINE Negative NEGATIVE [facility] OXYCODONE SCREEN URINE Negative NEGATIVE [facility] PHENCYCLIDINE SCREEN URINE Negative NEGATIVE [facility] TRICYCLIC ANTIDEPRESSANT URINE Negative NEGATIVE [facility] REEFLEX IF POSITIVE [facility] HCG ( test) Ql (U)o n 06-29-2024 Interpretation and review of laboratory results Abnormal [facility] Preg Test, Ur Positive [facility]inalysis macro (dipstick) panel (U)on 06-29-2024 Bilirubin, UA Negative Negative - 4(70) +++ mg/dL [facility] Blood, UA Negative Negative - 50 Jason/mcL [facility] Clarity, UA Clear [facility] re Color, UA Yellow [facility] Health[facility] Glucose, UA Negative Negative - 1999(110) ++++ mg/dL [facility] Interpretation and review of laboratory results Normal [facility] Ketones, UA Negative Negative - 160(16) ++++ mg/dL [facility] Leukocytes, UA Negative Negative - 500+++ Carlos/mcL [facility] Nitrite, UA Negative Negative - Positive [facility] pH, UA 7.0 5 - 9 [facility] Health[facility] e Protein, UA Negative Negative - 1999(20) ++++ mg/dL [facility] Spec Grav, UA 1.015 1 - 1.[address] [facility] Urobilinogen, UA 0.2 0.2 - 12 mg/dL [facility] XR hand RT min 3V*on 023 XR hand RT min 3V* [facility] [employer] Other XR hand RT min 3V* [facility] Other XR hand RT min 3V* 1111 [facility] Other XR hand RT min 3V* CASSIE Tinoco [address] [facility] Other XR hand RT min 3V* XRay Report [facility] Other XR hand RT min 3V* Signed [facility] Other XR hand RT min 3V* Patient: Amber Funes MR#: [id number] [facility] Other XR hand RT min 3V* 18 [facility] Other XR hand RT min 3V* : 2000 Acct:[id number] [facility] Other XR hand RT min 3V* Age/Sex: 22 / F ADM Date: 12/26/22 [facility] Other XR hand RT min 3V* Loc: XDUCLY Room: Type: [facility] Other XR hand RT min 3V* Attending Dr: Jennifer GIL [facility] Other XR hand RT min 3V* Copies to: JEFFERY Rodriguez [facility] Other XR hand RT min 3V* Ordering Provider: JEFFERY Rodriguez [facility] Other XR hand RT min 3V* Date of Service: 12/26/22 [facility] Other XR hand RT min 3V* XR/XR hand RT min 3V*: RIGHT HAND INJURY [facility] Other XR hand RT min 3V* RIGHT HAND - 4 views [facility] Other XR hand RT min 3V* REASON FOR EXAM: Patient had right thumb hyperextended yesterday when trying to open the door. Now [facility] Other XR hand RT min 3V* with pain. [facility] Other XR hand RT min 3V* COMPARISON: None [facility] Other XR hand RT min 3V* FINDINGS: [facility] Other XR hand RT min 3V* No focal soft tissue abnormality. There appears to be avulsion fracture involving the base of the [facility] Other XR hand RT min 3V* distal phalanx of the thumb. Joint spaces appear maintained. No bony erosions. [facility] Other XR hand RT min 3V* XR/XR hand RT min 3V* [facility] Other XR hand RT min 3V* IMPRESSION: [facility] Other XR hand RT min 3V* AVULSION FRACTURE INVOLVING THE BASE OF THE DISTAL PHALANX OF THE THUMB. [facility] Other XR hand RT min 3V* Impression dictated by: Bulmaro Arias Jr., D.O.12/26/2022 1:44 PM [facility] Other XR hand RT min 3V* Dictation Location: [facility]--15 [facility] Other XR hand RT min 3V* Transcribed By: PWS 12/26/22 1344 [facility] Other XR hand RT min 3V* Dictated By: Bulmaro Arias Jr, DO 12/26/22 1343 [facility] Other XR hand RT min 3V* Signed By: [facility] Other XR hand RT min 3V* 12/26/22 1344 [facility] Other PAP ACOG PANEL 2: 22 to 29on 11-09-2022 . . Normal [facility] Comment on above: Performed By: #### [id number] ####[facility] [address] [place] [address]DrGene Mancini Age Gdln ACOG Testing 21-29 Normal [facility] Comment on above: Performed By: #### 4 [id number] ####[facility] [address] [place], [place] [address]DrGene Mancini DIAGNOSIS: Comment Normal [facility] Comment on above: Result Comment: NEGA TIVE FOR INTRAEPITHELIAL LESION OR MALIGNANCY. Performed By: #### 4 [id number] ####[place] [address]DrGene Mancini Methodology: Comment [facility] Comment on above: Result Comment: This liquid based ThinPrep(R) pap test was screened with the use of an image guided system. Performed By: #### 4 [id number] ####[facility] [address] [place], [place] [address]DrGene Mancini Note: Comment [facility] Comment on above: Result Comment: The Pap smear is a screening test designed to aid in the detection of premalignant and malignant conditions of the uterine cervix. It is not a diagnostic procedure and should not be used as the sole means of detecting cervical cancer. Both false-positive and false-negative reports do occur. . Performed By: #### 4 [id number] ####[facility] [address] [place], [place] [address]DrGene Mancini Performed by: Comment Normal [facility] Comment on above: Result Comment: Zuleima Lin Drying Equipment Operator (ASCP) Performed By: #### 4 [id number] ####[facility] [address] [place], [place] [address]DrGene Mancini Reflex Criteria: Comment [facility] Comment on above: Result Comment: The HPV DNA reflex criteria were not met with this specimen result therefore, no HPV testing was performed. . Performed By: #### 4 [id number] ####[facility] [address] [place] [address]Dr. Donis Mancini Specimen adequacy: Comment Normal [facility] Comment on above: Result Comment: Sati sfactory for evaluation. Endocervical and/or squamous metaplastic cells (endocervical component) are present. Performed By: #### 4 [id number] ####[facility] [address] [place] [address]Dr. Donis Mancini Cytology Cervical or vaginal smear or scraping studyOrdered By: Jael Nix on 11-02-2022 [facility] CBC AUTO DIFFon 08-11-2022 BASO # 0.0 103/ul Normal 0.0-0.1 [facility] Comment on above: Performed By: #### C T/NGNA #### [facility] [address] [place] [address] Dr. Donis Mancini Basophils/100 WBC (Bld) 0.2 % Normal 0.2-2.0 [facility] Comment on above: Performed By: #### C T/NGNA #### [facility] [address] [place] [address] [address] Donis Mancini EO # 0.1 103/ul Normal 0.0-0.7 [facility] Comment on above: Performed By: #### C T/NGNA #### [facility] [address] [place] [address] [address] Donis Mancini Eosinophils/100 WBC (Bld) 0.5 % Critically low 0.9-7.0 [facility] Comment on above: Performed By: #### C T/NGNA #### [facility] [address] [place] [address] [address] Donis Mancini Erythrocyte distribution width (RBC) [Ratio] 12.5 % Normal 11.0-15.[address] [facility] Comment on above: Performed By: #### C T/NGNA #### [facility] [address] [place] [address] Dr. Donis Mancini Hematocrit (Bld) [Volume fraction] 35.9 % Critically low 36.0-48.0 [facility] Comment on above: Performed By: #### C T/NGNA #### [facility] [address] [place] [address] [address] Donis Mancini Hemoglobin (Bld) [Mass/Vol] 12.4 g/dL Normal 12.0-16.0 [facility] Comment on above: Result Comment: michelet ent delivered Performed By: #### C T/NGNA #### [facility] [address] [place] [address] [address] Donis Mancini IG # 0.10 10e3/ul Critically high 0.00-0.03 [facility] Comment on above: Performed By: #### C T/NGNA #### [facility] [address] [place] [address] Dr. Donis Mancini IG % 0.5 % Normal 0.0-0.5 [facility] Comment on above: Performed By: #### C T/NGNA #### [facility] [address] [place] [address] Dr. Donis Mancini LYMPH # 1.5 103/ul Normal 1.2-3.8 [facility] Comment on above: Performed By: #### C T/NGNA #### [facility] [address] [place] [address] Dr. Donis Mancini Lymphocytes/100 WBC (Bld) 7.6 % Critically low 20.5-60.0 [facility] Comment on above: Performed By: #### C T/NGNA #### [facility] [address] [place] [address] Dr. Donis Mancini MANUAL DIFF REQ NO Normal [facility] Comment on above: Performed By: #### C T/NGNA #### [facility] [address] [place] [address] [address] Donis Mancini MCH (RBC) [Entitic mass] 32.2 pg Normal 26.7-34.0 [facility] Comment on above: Performed By: #### C T/NGNA #### [facility] [address] [place] [address] Dr. Donis Mancini MCHC (RBC) [Mass/Vol] 34.5 g/dL Normal 29.9-35.2 [facility] Comment on above: Performed By: #### C T/NGNA #### [facility] [address] [place] [address] Dr. Donis Mancini MCV (RBC) [Entitic vol] 93.2 fL Normal 81.0-99.0 [facility] Comment on above: Performed By: #### C T/NGNA #### [facility] [address] [place] [address] Dr. Donis Mancini MONO # 1.3 103/ul Critically high 0.3-0.8 [facility] Comment on above: Performed By: #### C T/NGNA #### [facility] [address] [place] [address] Dr. Donis Mancini Monocytes/100 WBC (Bld) 6.8 % Normal 1.7-12.0 [facility] Comment on above: Performed By: #### C T/NGNA #### [facility] [address] [place] [address] Dr. Donis Mancini NEUT # 16.2 103/ul Critically high 1.4-6.5 [facility] Comment on above: Performed By: #### C T/NGNA #### [facility] [address] [place] [address] Dr. Donis Mancini Neutrophils/100 WBC (Bld) 84.4 % Critically high 43.0-75.[address] [facility] Comment on above: Performed By: #### C T/NGNA #### [facility] [address] [place] [address] Dr. Donis Mancini Platelet mean volume (Bld) [Entitic vol] 11.8 fL Normal 9.5-13.[address] [facility] Comment on above: Performed By: #### C T/NGNA #### [facility] [address] [place] [address] Dr. Donis Mancini PLT 156 103/ul Normal 150-[address] [facility] Comment on above: Performed By: #### C T/NGNA #### [facility] [address] [place] [address] Dr. Donis Mancini RBC 3.85 106/ul Critically low 4.20-5.40 [facility] Comment on above: Performed By: #### C T/NGNA #### [facility] [address] [place], [place] [address] Dr. Donis Mancini WBC 19.2 103/ul Critically high 4.0-11.0 [facility] Comment on above: Performed By: #### C T/NGNA #### [facility] [address] [place], [place] [address] Dr. Donis Mancini Covid-19 PCR (CVDTB)on 07-27 SARS-CoV-2 (COVID-19) RNA INESSA+probe Ql (Unsp spec) Not detected Normal NOT DETECTED [facility] Comment on above: Result Comment: When diagnostic [...] for this test is supported by the [place] of Health and Human Service's declaration that [...] be used). Performed By: #### C VDTBH ####[facility] [address] [place], [place] [address]LsGene Mancini DRUG SCREEN RAPID (URINE)on 08-10-2022 AMP Negative Normal NEGATIVE [facility] Comment on above: Performed By: #### D RUGRPD ####[facility] [address] [place], [place] [address]TwGene Mancini BAR Negative Normal NEGATIVE [facility] Comment on above: Performed By: #### D RUGRPD ####[facility] [address] [place] [id number]. Donis Mancini BUP Negative Normal NEGATIVE [facility] Comment on above: Performed By: #### D RUGRPD ####[facility] [address] [place], [place] [address]Dr. Donis Mancini BZO Negative Normal NEGATIVE [facility] Comment on above: Performed By: #### D RUGRPD ####[facility] [address] [place], [place] [address]Dr. Donis Mancini ALEXA Negative Normal NEGATIVE [facility] Comment on above: Performed By: #### D RUGRPD ####[facility] [address] [place], [place] [address]Dr. Donis Mancini CUT-OFFS SEE BELOW Normal [facility] Comment on above: Result Comment: AMP (Amphetamine): 500ng/mL, BAR (Barbituates): 200 ng/mL, BZO (Benzodiazepines): 150 ng/mL, BUP (Buprenorphine): 10 ng/mL, ALEXA (Cocaine): 150 ng/mL, mAMP (Methamphetamine): 500 ng/mL, MTD (Methadone): 200 ng/mL, OPI (Opiates): 100 ng/mL, OXY (Oxycodone): 100 ng/mL, PCP (Phencyclidine): 25 ng/mL, PPX (Propoxyphene): 300 ng/mL, THC (Cannabinoids): 50 ng/mL, TCA (Trycyclic Antidepressants): 300 ng/mL Performed By: #### D RUGRPD ####[facility] [address] [place], [place] [address]Dr. Donis Mancini DRUG CUT HEADER DRUG CLASS TEST SYSTEM CUT-OFF CONCENTRATIONS ARE FOLLOWS: Normal [facility] Comment on above: Performed By: #### D RUGRPD ####[facility] [address] [place], [place] [address]Dr. Donis Mancini mAMP Negative Normal NEGATIVE [facility] Comment on above: Performed By: #### D RUGRPD ####[facility] [address] [place], [place] [address]Dr. Donis Mancini MTD Negative Normal NEGATIVE [facility] Comment on above: Performed By: #### D RUGRPD ####[facility] [address] [place] [id number]. Yijavi Mancini OPI Negative Normal NEGATIVE [facility] Comment on above: Performed By: #### D RUGRPD ####[facility] [address] [place] [id number]. Yilan Mancini OXY Negative Normal NEGATIVE [facility] Comment on above: Performed By: #### D RUGRPD ####[facility] [address]cm[address] [place] [address]Dr. Yijavi Mancini PCP Negative Normal NEGATIVE [facility] Comment on above: Performed By: #### D RUGRPD ####[facility] [address] [place], [place] [address]Dr. Yijavi Mancini PPX Negative Normal NEGATIVE [facility] Comment on above: Performed By: #### D RUGRPD ####[facility] [address]olac[address] [place] [address]Dr. Yijavi Mancini TCA Negative Normal NEGATIVE [facility] Comment on above: Performed By: #### D RUGRPD ####[facility] Frvvgaud[address] [place], [place] [address]Dr. Donis Mancini THC Negative Normal NEGATIVE [facility] Comment on above: Performed By: #### D RUGRPD ####[facility] [address]xdvpyovbi[address] [place] [address]Dr. Donis Mancini TYPE AND SCREENon 08-10-2022 TYPE AND SCREEN Negative Normal [facility] Comment on above: Performed By: #### T NS ####[facility] Kqatwwbq[address] [place], [place] [address]Dr. Donis Mancini US PREG BIOPHY W NON [...] ESTEFANY BENNETT Date: 2022-08-10 07:18 Normal [facility] US PREG GROWTHon 08-10-2022 US PREG GROWTH [...] ESTEFANY BENNETT Date: 2022-08-10 07:16 Normal [facility] CBC AUTO DIFFon 08-09-2022 BASO # 0.0 103/ul Normal 0.0-0.[address] [facility] Comment on above: Performed By: #### C BC ####[facility] R[address]pemchr[address] [place], [place] [address]Dr. Donis Mancini Basophils/100 WBC (Bld) 0.2 % Normal 0.2-2.[address] [facility] Comment on above: Performed By: #### C BC ####[facility] [address]ashzdbv[address] [place] [address]DrGene Mancini EO # 0.4 103/ul Normal 0.0-0.[address] [facility] Comment on above: Performed By: #### C BC ####[facility] [address]dgsnjdy[address] [place] [address]DrGene Mancini Eosinophils/100 WBC (Bld) 2.8 % Normal 0.9-7.0 [facility] Comment on above: Performed By: #### C BC ####[facility] Ycbjutwbvq[address] [place], [place] [address]Dr. Donis Mancini Erythrocyte distribution width (RBC) [Ratio] 12.2 % Normal 11.0-15.0 [facility] Comment on above: Performed By: #### C BC ####[facility] P[address]fzbbizo[address] [place], [place] [address]Dr. Donis Mancini Hematocrit (Bld) [Volume fraction] 41.4 % Normal 36.0-48.[address] [facility] Comment on above: Performed By: #### C BC ####[facility] Dzchrcrjdw[address] [place], [place] [address]DrGene Mancini Hemoglobin (Bld) [Mass/Vol] 14.4 g/dL Normal 12.0-16.0 [facility] Comment on above: Performed By: #### C BC ####[facility] Pgiyxwdyjl[address] [place], [place] [address]Dr. Donis Mancini IG # 0.06 10e3/ul Critically high 0.00-0.03 [facility] Comment on above: Performed By: #### C BC ####[facility] Ppdiejujfm[address] [place], [place] [address]DrGene Mancini IG % 0.5 % Normal 0.0-0.5 [facility] Comment on above: Performed By: #### C BC ####[facility] Quokidfpnd[address] [place], [place] [address]DrGene Mancini LYMPH # 1.5 103/ul Normal 1.2-3.[address] [facility] Comment on above: Performed By: #### C BC ####[facility] Ksoxwwzvyb[address] [place], [place] [address]DrGene Mancini Lymphocytes/100 WBC (Bld) 11.7 % Critically low 20.5-60.[address] [facility] Comment on above: Performed By: #### C BC ####[facility] D[address]ssbfank[address] [place], [place] [address]DrGene Mancini MANUAL DIFF REQ NO Normal [facility] Comment on above: Performed By: #### C BC ####[facility] [address]meuamubp[address] [place] [id number] Mancini MCH (RBC) [Entitic mass] 31.9 pg Normal 26.7-34.[address] [facility] Comment on above: Performed By: #### C BC ####[facility] Vjfclveqky[address] [place], [place] [address]DrGene Mancini MCHC (RBC) [Mass/Vol] 34.8 g/dL Normal 29.9-35.[address] [facility] Comment on above: Performed By: #### C BC ####[facility] S[address]wqqadfm[address] [place], [place] [address]DrGene Mancini MCV (RBC) [Entitic vol] 91.8 fL Normal 81.0-99.[address] [facility] Comment on above: Performed By: #### C BC ####[facility] Txhhnkrhyv[address] [place], [place] [address]DrGene Mancini MONO # 1.0 103/ul Critically high 0.3-0.8 [facility] Comment on above: Performed By: #### C BC ####[facility] Zfhptaqmak[address] [place], [place] [address]DrGene Mancini Monocytes/100 WBC (Bld) 7.5 % Normal 1.7-12.[address] [facility] Comment on above: Performed By: #### C BC ####[facility] F[address]cchqilt[address] [place], [place] [address]DrGene Mancini NEUT # 10.0 103/ul Critically high 1.4-6.5 [facility] Comment on above: Performed By: #### C BC ####[facility] [address]ieyke[address] [place], [place] [address]DrGene Mancini Neutrophils/100 WBC (Bld) 77.3 % Critically high 43.0-75.[address] [facility] Comment on above: Performed By: #### C BC ####[facility] Epsipaxnad[address] [place], [place] [address]DrGene Mancini Platelet mean volume (Bld) [Entitic vol] 11.6 fL Normal 9.5-13.5 [facility] Comment on above: Performed By: #### C BC ####[facility] [address]rs[address] [place] [id number] Mancini PLT 184 103/ul Normal 150-450 [facility] Comment on above: Performed By: #### C BC ####[facility] [address]fulmi[address] [place] [id number] Mancini RBC 4.51 106/ul Normal 4.20-5.40 [facility] Comment on above: Performed By: #### C BC ####[facility] [address]abhaltkl[address] [place] [address]DrGene Mancini WBC 12.9 103/ul Critically high 4.0-11.0 [facility] Comment on above: Performed By: #### C BC ####[facility] [address]td[address] [place] [address]Dr. Donis Mancini LDHon 08-09-2022 LDH 167 U/L Normal 81-234 [facility] Comment on above: Performed By: #### C T/NGNA #### [facility] [address] [place] [address] Dr. Donis Mancini PROF 14(COMP METB)on 08-09- 022 Albumin [Mass/Vol] 2.7 g/dL Critically low 3.4-5.0 [facility] Comment on above: Performed By: #### C T/NGNA #### [facility] [address] [place] [address] Dr. Donis Mancini Albumin/Globulin [Mass ratio] 0.6 {ratio} Normal [facility] Comment on above: Performed By: #### C T/NGNA #### [facility] [address] [place] [address] Dr. Donis Mancini ALP [Catalytic activity/Vol] 176 U/L Critically high 46-116 [facility] Comment on above: Performed By: #### C T/NGNA #### [facility] [address] [place] [address] [address] Donis Mancini ALT [Catalytic activity/Vol] 20 U/L Normal 14-59 [facility] Comment on above: Performed By: #### C T/NGNA #### [facility] [address] [place] [address] [address] Donis Mancini Anion gap [Moles/Vol] 12.9 mmol/L Normal [facility] Comment on above: Performed By: #### C T/NGNA #### [facility] [address] [place] [address] [address] Donis Mancini AST [Catalytic activity/Vol] 20 U/L Normal 15-37 [facility] Comment on above: Performed By: #### C T/NGNA #### [facility] [address] [place] [address] [address] Donis Mancini Bilirubin [Mass/Vol] 0.1 mg/dL Critically low 0.2-1.0 [facility] Comment on above: Performed By: #### C T/NGNA #### [facility] [address] [place] [address] [address] Donis Mancini Calcium [Mass/Vol] 9.1 mg/dL Normal 8.5-10.1 [facility] Comment on above: Performed By: #### C T/NGNA #### [facility] [address] [place] [address] Dr. Donis Mancini Chloride [Moles/Vol] 104 mmol/L Normal 98-107 [facility] Comment on above: Performed By: #### C T/NGNA #### [facility] [address] [place] [address] [address] Donis Mancini CO2 [Moles/Vol] 22.9 mmol/L Normal 21.0-32.0 [facility] Comment on above: Performed By: #### C T/NGNA #### [facility] [address] [place] [address] Dr. Donis Mancini Creatinine [Mass/Vol] 0.43 mg/dL Critically low 0.55-1.02 [facility] Comment on above: Performed By: #### C T/NGNA #### [facility] [address] [place] [address] [address] Donis Mancini EGFR-AF DUTCH >60 Normal >=60 [facility] Comment on above: Performed By: #### C T/NGNA #### [facility] [address] [address] [address] Donis Mancini EGFR-NON AF DUTCH >60 Normal >=60 [facility] Comment on above: Performed By: #### C T/NGNA #### [facility] [address] [place] [address] [address] Donis Mancini Globulin (S) [Mass/Vol] 4.2 g/dL Normal [facility] Comment on above: Performed By: #### C T/NGNA #### [facility] [address] [place] [address] Dr. Donis Mancini Glucose [Mass/Vol] 95 mg/dL Normal 74-106 [facility] Comment on above: Performed By: #### C T/NGNA #### [facility] [address] [place] [address] Dr. Donis Mancini Potassium [Moles/Vol] 3.8 mmol/L Normal 3.5-5.[address] [facility] Comment on above: Performed By: #### C T/NGNA #### [facility] [address] [place] [address] Dr. Donis Mancini Protein [Mass/Vol] 6.9 g/dL Normal 6.4-8.2 [facility] Comment on above: Performed By: #### C T/NGNA #### [facility] [address] [place] [address] Dr. Donis Mancini Sodium [Moles/Vol] 136 mmol/L Normal 136-145 [facility] Comment on above: Performed By: #### C T/NGNA #### [facility] [address] [place] [address] Dr. Donis Mancini Urea nitrogen [Mass/Vol] 10.0 mg/dL Normal 7.0-18.0 [facility] Comment on above: Performed By: #### C T/NGNA #### [facility] [address] [place] [address] Dr. Donis Mancini Urea nitrogen/Creatinine [Mass ratio] 23.3 mg/mg Normal [facility] Comment on above: Performed By: #### C T/NGNA #### [facility] [address] [place] [address] Dr. Donis Mancini URIC ACID SERUMon 08-09-2022 Urate [Mass/Vol] 3.6 mg/dL Normal 2.6-6.0 [facility] Comment on above: Performed By: #### C T/NGNA #### [facility] [address] [place] [address] Dr. Donis Mancini CBC AUTO DIFFon 08-07-2022 BASO # 0.0 103/ul Normal 0.0-0.1 [facility] Comment on above: Performed By: #### U AMIC #### [facility] [address] [place] [address] Dr. Donis Mancini Basophils/100 WBC (Bld) 0.2 % Normal 0.2-2.0 [facility] Comment on above: Performed By: #### U AMIC #### [facility] [address] [place] [address] Dr. Donis Mancini EO # 0.2 103/ul Normal 0.0-0.7 [facility] Comment on above: Performed By: #### U AMIC #### [facility] [address] [place] [address] Dr. Donis Mancini Eosinophils/100 WBC (Bld) 1.8 % Normal 0.9-7.0 [facility] Comment on above: Performed By: #### U AMIC #### [facility] [address] [place] [address] Dr. Donis Mancini Erythrocyte distribution width (RBC) [Ratio] 12.3 % Normal 11.0-15.0 [facility] Comment on above: Performed By: #### U AMIC #### [facility] [address] [place] [address] Dr. Donis Mancini Hematocrit (Bld) [Volume fraction] 45.7 % Normal 36.0-48.0 [facility] Comment on above: Performed By: #### U AMIC #### [facility] [address] [place] [address] [address] Donis Mancini Hemoglobin (Bld) [Mass/Vol] 16.0 g/dL Normal 12.0-16.0 [facility] Comment on above: Performed By: #### U AMIC #### [facility] [address] [place] [address] [address] Donis Mancini IG # 0.07 10e3/ul Critically high 0.00-0.03 [facility] Comment on above: Performed By: #### U AMIC #### [facility] [address] [place] [address] Dr. Donis Mancini IG % 0.5 % Normal 0.0-0.5 [facility] Comment on above: Performed By: #### U AMIC #### [facility] [address] [place] [address] [address] Donis Mancini LYMPH # 1.5 103/ul Normal 1.2-3.8 [facility] Comment on above: Performed By: #### U AMIC #### [facility] [address] [place] [address] [address] Donis Mancini Lymphocytes/100 WBC (Bld) 11.2 % Critically low 20.5-60.0 [facility] Comment on above: Performed By: #### U AMIC #### [facility] [address] [place] [address] [address] Donis Mancini MANUAL DIFF REQ NO Normal [facility] Comment on above: Performed By: #### U AMIC #### [facility] [address] [place] [address] [address] Donis Mancini MCH (RBC) [Entitic mass] 32.0 pg Normal 26.7-34.0 [facility] Comment on above: Performed By: #### U AMIC #### [facility] [address] [place] [address] Dr. Donis Mancini MCHC (RBC) [Mass/Vol] 35.0 g/dL Normal 29.9-35.2 [facility] Comment on above: Performed By: #### U AMIC #### [facility] [address] [place] [address] [address] Donsi Mancini MCV (RBC) [Entitic vol] 91.4 fL Normal 81.0-99.[address] [facility] Comment on above: Performed By: #### U AMIC #### [facility] [address] [place] [address] [address] Donis Mancini MONO # 0.9 103/ul Critically high 0.3-0.8 [facility] Comment on above: Performed By: #### U AMIC #### [facility] [address] [place] [address] [address] Donis Mancini Monocytes/100 WBC (Bld) 6.3 % Normal 1.7-12.0 [facility] Comment on above: Performed By: #### U AMIC #### [facility] [address] [place] [address] [address] Donis Mancini NEUT # 10.9 103/ul Critically high 1.4-6.5 [facility] Comment on above: Performed By: #### U AMIC #### [facility] [address] [place] [address] Dr. Donis Mancini Neutrophils/100 WBC (Bld) 80.0 % Critically high 43.0-75.[address] [facility] Comment on above: Performed By: #### U AMIC #### [facility] [address] [place] [address] [address] Donis Mancini Platelet mean volume (Bld) [Entitic vol] 11.5 fL Normal 9.5-13.[address] [facility] Comment on above: Performed By: #### U AMIC #### [facility] [address] [place] [address] Dr. Donis Mancini PLT 182 103/ul Normal 150-[address] [facility] Comment on above: Performed By: #### U AMIC #### [facility] [address] [address] [address] Donis Mancini RBC 5.00 106/ul Normal 4.20-5.[address] [facility] Comment on above: Performed By: #### U AMIC #### [facility] [address] [place] [address] [address] Donis Mancini WBC 13.6 103/ul Critically high 4.0-11.0 [facility] Comment on above: Performed By: #### U AMIC #### [facility] [address] [place] [address] [address] Donis Mancini LDHon 08-07-2022 LDH 171 U/L Normal 81-234 [facility] Comment on above: Performed By: #### C MP, URIC, LDH ####[facility] [address] [place] [address]Dr. Donis Mancini PROF 14(COMP METB)on 022 Albumin [Mass/Vol] 2.9 g/dL Critically low 3.4-5.0 [facility] Comment on above: Performed By: #### C MP, URIC, LDH ####[facility] [address] [place] [address]DrGene Mancini Albumin/Globulin [Mass ratio] 0.6 {ratio} Normal [facility] Comment on above: Performed By: #### C MP, URIC, LDH ####[facility] [address] [place] [address]DrGene Mancini ALP [Catalytic activity/Vol] 192 U/L Critically high 46-116 [facility] Comment on above: Performed By: #### C MP, URIC, LDH ####[facility] [address] [place] [address]DrGene Mancini ALT [Catalytic activity/Vol] 23 U/L Normal 14-59 [facility] Comment on above: Performed By: #### C MP, URIC, LDH ####[facility] [address] [place] [address]DrGene Mancini Anion gap [Moles/Vol] 14.4 mmol/L Normal [facility] Comment on above: Performed By: #### C MP, URIC, LDH ####[facility] [address] [place] [address]DrGene Mancini AST [Catalytic activity/Vol] 23 U/L Normal 15-[address] [facility] Comment on above: Performed By: #### C MP, URIC, LDH ####[facility] [address] [place] [address]Dr. Donis Mancini Bilirubin [Mass/Vol] 0.2 mg/dL Normal 0.2-1.[address] [facility] Comment on above: Performed By: #### C MP, URIC, LDH ####[facility] [address] [place] [address]Dr. Donis Mancini Calcium [Mass/Vol] 9.4 mg/dL Normal 8.5-10.1 [facility] Comment on above: Performed By: #### C MP, URIC, LDH ####[facility] [address] [place] [address]Dr. Donis Mancini Chloride [Moles/Vol] 104 mmol/L Normal 98-[address] [facility] Comment on above: Performed By: #### C MP, URIC, LDH ####[facility] [address] [place] [address]Dr. Donis Mancini CO2 [Moles/Vol] 21.7 mmol/L Normal 21.0-32.0 [facility] Comment on above: Performed By: #### C MP, URIC, LDH ####[facility] [address] [place] [address]Dr. Donis Mancini Creatinine [Mass/Vol] 0.46 mg/dL Critically low 0.55-1.[address] [facility] Comment on above: Performed By: #### C MP, URIC, LDH ####[facility] [address] [place] [address]Dr. Donis Mancini EGFR-AF DUTCH >60 Normal >=60 [facility] Comment on above: Performed By: #### C MP, URIC, LDH ####[facility] [address] [place] [address]Dr. Donis Mancini EGFR-NON AF DUTCH >60 Normal >=[address] [facility] Comment on above: Performed By: #### C MP, URIC, LDH ####[facility] [address] [place] [id number]. Donis Mancini Globulin (S) [Mass/Vol] 4.6 g/dL Normal [facility] Comment on above: Performed By: #### C MP, URIC, LDH ####[facility] [address] [place] [address]Dr. Donis Mancini Glucose [Mass/Vol] 89 mg/dL Normal 74-106 [facility] Comment on above: Performed By: #### C MP, URIC, LDH ####[facility] [address] [place] [address]Dr. Donis Mancini Potassium [Moles/Vol] 4.1 mmol/L Normal 3.5-5.[address] [facility] Comment on above: Performed By: #### C MP, URIC, LDH ####[facility] [address] [place] [address]Dr. Donis Mancini Protein [Mass/Vol] 7.5 g/dL Normal 6.4-8.2 [facility] Comment on above: Performed By: #### C MP, URIC, LDH ####[facility] [address] [place] [address]Dr. Donis Mancini Sodium [Moles/Vol] 136 mmol/L Normal 136-145 [facility] Comment on above: Performed By: #### C MP, URIC, LDH ####[facility] [address]rm[address] [place] [address]Dr. Donis Mancini Urea nitrogen [Mass/Vol] 8.0 mg/dL Normal 7.0-18.[address] [facility] Comment on above: Performed By: #### C MP, URIC, LDH ####[facility] [address] [place] [address]Dr. Donis Mancini Urea nitrogen/Creatinine [Mass ratio] 17.4 mg/mg Normal [facility] Comment on above: Performed By: #### C MP, URIC, LDH ####[facility] [address] [place] [address]Dr. Donis Mancini PROTIMEon 08-07-2022 INR Coag (PPP) [Relative time] {INR} Normal [facility] Comment on above: Performed By: #### U AMIC #### [facility] [address] [place] [address] Dr. Donis Mancini INR GUIDELINES SEE BELOW Normal [facility] Comment on above: Result Comment: NICCI RED INR: 2.0 - 3.0 CONDITIONS NOT LISTED BELOW 2.5 - 3.5 FOR PROSTHETIC HEART VALVE REPLACEMENT 2.5 - 3.5 RECURRENT THROMBOSIS Performed By: #### U AMIC #### [facility] [address] [place] [address] Dr. Donis Mancini PT Coag (PPP) [Time] 9.8 s Normal 9.0-11.6 [facility] Comment on above: Performed By: #### U AMIC #### [facility] [address] [place] [address] Dr. Donis Mancini PTTon 08-07-2022 aPTT Coag (Bld) [Time] 28.5 s Normal 22.3-36.2 [facility] Comment on above: Performed By: #### U AMIC #### [facility] [address] [place] [address] Dr. Donis Mancini UA (CLEAN/CATCH) VIDEO PRODUCTION COORDINATOR/MICRO I F IND.on 08-07-2022 Bilirubin Ql (U) Negative Normal NEGATIVE [facility] Comment on above: Performed By: #### U AMIC #### [facility] [address] [place] [address] Dr. Donis Mancini Clarity (U) CLEAR Normal CLEAR [facility] Comment on above: Performed By: #### U AMIC #### [facility] [address] [place] [address] Dr. Donis Mancini Color (U) LT. YELLOW Normal YELLOW [facility] Comment on above: Performed By: #### U AMIC #### [facility] [address] [place] [address] Dr. Donis Mancini Glucose Ql (U) Negative Normal NEGATIVE [facility] Comment on above: Performed By: #### U AMIC #### [facility] [address] [place] [address] Dr. Donis Mancini Hemoglobin Ql (U) Negative Normal NEGATIVE [facility] Comment on above: Performed By: #### U AMIC #### [facility] [address] [address] [address] Donis Mancini Ketones Ql (U) Negative Normal NEGATIVE [facility] Comment on above: Performed By: #### U AMIC #### [facility] [address] [address] [address] Donis Mancini LEUKOCYTES Negative Normal NEGATIVE [facility] Comment on above: Performed By: #### U AMIC #### [facility] [address] [address] [address] Donis Mancini Nitrite Ql (U) Negative Normal NEGATIVE [facility] Comment on above: Performed By: #### U AMIC #### [facility] [address] [place] [address] Dr. Donis Mancini pH (U) 7.0 [pH] Normal 5-9 [facility] Comment on above: Performed By: #### U AMIC #### [facility] [address] [place] [address] Dr. Donis Mancini SPEC GRAVITY <=1.005 Abnormal 1.005-<=1.025 [facility] Comment on above: Performed By: #### U AMIC #### [facility] [address] [place] [address] Dr. Donis Mancini UA PROTEIN Negative Normal NEGATIVE/ TRACE [facility] Comment on above: Performed By: #### U AMIC #### [facility] [address] [place] [address] Dr. Donis Mancini UR MICRO IND NOT INDICATED Normal [facility] Comment on above: Performed By: #### U AMIC #### [facility] [address] [place] [address] Dr. Donis Mancini Urobilinogen Qn (U) 0.2 {Sarah'U}/dL Normal 0.2 - 1. 0 [facility] Comment on above: Performed By: #### U AMIC #### [facility] [address] [place] [address] Dr. Donis Mancini URIC ACID SERUMon 08-07-2022 Urate [Mass/Vol] 3.8 mg/dL Normal 2.6-6.0 [facility] Comment on above: Performed By: #### C MP, URIC, LDH ####[facility] [address] [address]Dr. Donis Mancini URINE T PROTEIN CREAT RATIOo n 08-07-2022 UR TOTAL PROTEIN <6.0 Normal <=12.0 [facility] Comment on above: Performed By: #### C T/NGNA #### [facility] [address] [address] [address] Donis Mancini URINE CREAT 13.45 mg/dL Crit[facility] low 20.00-300.00 [facility] Comment on above: Performed By: #### C T/NGNA #### [facility] [address] [place] [address] Dr. Donis Mancini US PREG BIOPHY W [...] COCO STERN Date: 2022-08-01 08:31 Normal [address] [facility] CHLAMYDIA/GONOCOCCUS INESSA (SW AB/URINE/PAPon 07-31-2022 Chlamydia trachomatis, INESSA Negative Normal Negative [facility] Comment on above: Performed By: #### C T/NGNA #### [facility] [address] [place] [address] Dr. Donis Mancini Neisseria gonorrhoeae, INESSA Negative Normal Negative [facility] Comment on above: Performed By: #### C T/NGNA #### [facility] [address] [place] [address] Dr. Donis Mancini VAGINITIS/VAGINOSIS DNA PROB Domenic 07-31-2022 Mariam species Negative Normal Negative [facility] Comment on above: Performed By: #### V AGINT ####[facility] [address] [address]Dr. Donis Mancini Gardnerella vaginalis Negative Normal Negative [facility] Comment on above: Performed By: #### V AGINT ####[facility] [address] [address]Dr. Donis Mancini Trichomonas vaginalis Negative Normal Negative [facility] Comment on above: Performed By: #### V AGINT ####[facility] [address] [address]Dr. Donis Mancini GROUP B STREP CULTUREon S. agalactiae Ag Ql (Unsp spec) Culture Observations: NEGATIVE FOR GROUP B STREPTOCOCCUS. Normal The [facility] Comment on above: Performed By: #### G BSCX #### [facility] [address] [address] [address] Donis Mancini US PREG BIOPHY W [...] COCO STERN Date: 2022-07-25 09:41 Normal [address] [facility] US PREG GROWTHon 07-11-2022 US PREG [...] ESTEFANY BENNETT Date: 2022-07-11 19:28 Normal [address] [facility]26 SARS-CoV-2 (COVID-19) RNA INESSA+probe Ql (Unsp spec) Not detected Normal NOT DETECTED [facility] Comment on above: Result Comment: When diagnostic [...] for this test is supported by the [employer] Worker of Health and Human Service's declaration that [...] used). Performed By: #### C T/NGNA #### [facility] [address] [place] [address] Dr. Donis Mancini GTT 3 HR PREGon 06-03-2022 Glucose [Mass/Vol] 94 mg/dL Normal 74-106 [facility] Comment on above: Performed By: #### U AMIC #### [facility] [address] [address] [address] Donis Mancini Glucose [Mass/Vol] 147 mg/dL Normal [facility] Comment on above: Performed By: #### U AMIC #### [facility] [address] [address] [address] Donis Mancini Glucose [Mass/Vol] 159 mg/dL Normal [facility] Comment on above: Performed By: #### U AMIC #### [facility] [address] [address] [address] Donis Mancini Glucose [Mass/Vol] 151 mg/dL Normal [facility] Comment on above: Performed By: #### U AMIC #### [facility] [address] [address] [address] Donis Mancini GLUCOSE - 1HRon 05-21-2022 Glucose [Mass/Vol] 141 mg/dL Critically high 74-106 [facility] Comment on above: Performed By: #### U AMIC #### [facility] [address] [place] [address] Dr. Donis Mancini HEMOGRAM AND PLATELon 2021 Hematocrit (Bld) [Volume fraction] 39.1 % Normal 36.0-48.0 [facility] Comment on above: Performed By: #### U AMIC #### [facility] [address] [place] [address] Dr. Donis Mancini Hemoglobin (Bld) [Mass/Vol] 13.1 g/dL Normal 12.0-16.0 [facility] Comment on above: Performed By: #### U AMIC #### [facility] [address] [place] [address] Dr. Donis Mancini MCH (RBC) [Entitic mass] 32.3 pg Normal 26.7-34.0 [facility] Comment on above: Performed By: #### U AMIC #### [facility] [address] [place] [address] Dr. Donis Mancini MCHC (RBC) [Mass/Vol] 33.5 g/dL Normal 29.9-35.2 [facility] Comment on above: Performed By: #### U AMIC #### [facility] [address] [address] [address] Donis Mancini MCV (RBC) [Entitic vol] 96.5 fL Normal 81.0-99.0 [facility] Comment on above: Performed By: #### U AMIC #### [facility] [address] [address] [address] Donis Mancini PLT 220 103/ul Normal 150-[address] [facility] Comment on above: Performed By: #### U AMIC #### [facility] [address] [address] [address] Donis Mancini RBC 4.05 106/ul Critically low 4.20-5.40 [facility] Comment on above: Performed By: #### U AMIC #### [facility] [address] [address] [address] Donis Mancini WBC 12.8 103/ul Critically high 4.0-11.0 [facility] Comment on above: Performed By: #### U AMIC #### [facility] [address] [address] [address] Donis Mancini US PREG BIOPHYSICAL NO [...] ESTEFANY BENNETT Date: 2022-05-11 06:25 Normal [address] [facility] CULTURE URINEon 05-10-2022 CULTURE URINE Culture Observations: MODERATE GROWTH OF MIXED GENITAL RAMBO. NO POTENTIAL PATHOGENS SEEN. Normal The [facility] Comment on above: Performed By: #### U RCX #### [facility] [address] [address] [address] Donis Mancini UA RANDOM W/MICROSCOPICon BACTERIA LARGE Abnormal NONE SEEN The [facility] Comment on above: Performed By: #### U AMIC ####[facility] [address] [place], [place] [address]Dr. Donis Mancini Bilirubin Ql (U) Negative Normal NEGATIVE [facility] Comment on above: Performed By: #### U AMIC ####[facility] [address] [address]Dr. Donis Mancini CAST NONE SEEN Normal NONE SEEN The [facility] Comment on above: Performed By: #### U AMIC ####[facility] Hos[address] [place], [place] [address]Dr. Donis Mancini Clarity (U) CLEAR Normal CLEAR [facility] Comment on above: Performed By: #### U AMIC ####[facility] Bigiicprch[address] [place], [place] [address]Dr. Donis Mancini Color (U) YELLOW Normal YELLOW [facility] Comment on above: Performed By: #### U AMIC ####[facility] B[address]fmy[address] [place], [place] [address]Dr. Donis Mancini Crystals LM Nom (Urine sed) NONE SEEN Normal NONE SEEN [facility] Comment on above: Performed By: #### U AMIC ####[facility] Goovcnrrii[address] [place], [place] [address]Dr. Donis Mancini Epithelial cells LM Ql (Urine sed) MODERATE Abnormal NONE SEEN /RARE The [facility] Comment on above: Performed By: #### U AMIC ####[facility] [address] [place], [place] [address]Dr. Donis Mancini Glucose Ql (U) 250 mg/dl Abnormal NEGATIVE [facility] Comment on above: Performed By: #### U AMIC ####[facility] Sugwrorz[address] [place], [place] [address]Dr. Donis Mancini Hemoglobin Ql (U) TRACE-INTACT Abnormal NEGATIVE The [facility] Comment on above: Performed By: #### U AMIC ####[facility] N[address]re[address] [place], [place] [address]Dr. Donis Mancini Ketones Ql (U) Negative Normal NEGATIVE [facility] Comment on above: Performed By: #### U AMIC ####[facility] [address] [address]Dr. Donis Mancini LEUKOCYTES LARGE Abnormal NEGATIVE [facility] Comment on above: Performed By: #### U AMIC ####[facility] [address] [address]Dr. Donis Mancini MUCOUS NONE SEEN Normal NONE SEEN [facility] Comment on above: Performed By: #### U AMIC ####[facility] [address] [address]Dr. Donis Mancini Nitrite Ql (U) Negative Normal NEGATIVE [facility] Comment on above: Performed By: #### U AMIC ####[facility] [address] [address]Dr. Donis Mancini pH (U) 6.0 [pH] Normal 5-[address] [facility] Comment on above: Performed By: #### U AMIC ####[facility] [address] [place], [place] [address]Dr. Donis Mancini RBC 2-5 Abnormal 0-[address] [facility] Comment on above: Performed By: #### U AMIC ####[facility] Ayc[address]rt[address] [place], [place] [address]Dr. Donis Mancini SPEC GRAVITY <=1.005 Abnormal 1.005-<=1.025 [facility] Comment on above: Performed By: #### U AMIC ####[facility] L[address]axx[address] [place], [place] [address]Dr. Donis Mancini UA PROTEIN Negative Normal NEGATIVE/ TRACE [facility] Comment on above: Performed By: #### U AMIC ####[facility] Si[address] [place], [place] [address]Dr. Donis Mancini Urobilinogen Qn (U) 0.2 {Sarah'U}/dL Normal 0.2 - 1. [address] [facility] Comment on above: Performed By: #### U AMIC ####[facility] [address] [place], [place] [address]Dr. Donis Mancini WBC 10-20 Abnormal NONE SEEN [facility] Comment on above: Performed By: #### U AMIC ####[facility] Or[address] [place], [place] [address]Dr. Donis Mancini CULTURE URINEon 04-27-2022 CULTURE URINE Culture Observations: LIGHT GROWTH OF MIXED GENITAL RAMBO. NO POTENTIAL PATHOGENS SEEN. Normal The [facility] Comment on above: Performed By: #### U RCX ####[facility] W[address]op[address] [place], [place] [address]Dr. Donis Mancini UA (CLEAN/CATCH) VIDEO PRODUCTION COORDINATOR/MICRO I F IND.on 04-27-2022 Bilirubin Ql (U) Negative Normal NEGATIVE [facility] Comment on above: Performed By: #### U ACSWENDY ICRO ####[facility] [address] [place], [place] [address]Dr. Donis Mancini Clarity (U) CLEAR Normal CLEAR [facility] Comment on above: Performed By: #### U ACSWENDY ICRO ####[facility] [address] [place], [place] [address]Dr. Donis Mancini Color (U) LT. YELLOW Normal YELLOW [facility] Comment on above: Performed By: #### U ACSWENDY ICRO ####[facility] Y[address] [place], [place] [address]Dr. Donis Mancini Glucose Ql (U) Negative Normal NEGATIVE The [facility] Comment on above: Performed By: #### U ACSWENDY UMICRO ####[facility] [address] [place], [place] [address]Dr. Donis Mancini Hemoglobin Ql (U) Negative Normal NEGATIVE [facility] Comment on above: Performed By: #### U ACSWENDY UMICRO ####[facility] Mcihuvwmkt[address] [place], [place] [address]Dr. Donis Mancini Ketones Ql (U) Negative Normal NEGATIVE [facility] Comment on above: Performed By: #### U ACSWENDY, UMICRO ####[facility] Migtyolphi[address] [place], [place] [address]Dr. Donis Mancini LEUKOCYTES SMALL Abnormal NEGATIVE [facility] Comment on above: Performed By: #### U ACSIND, UMICRO ####[facility] [address] [address]Dr. Donis Mancini Nitrite Ql (U) Negative Normal NEGATIVE [facility] Comment on above: Performed By: #### U ACSIND, UMICRO ####[facility] [address] [address]Dr. Donis Mancini pH (U) 7.0 [pH] Normal 5-[address] [facility] Comment on above: Performed By: #### U ACSWENDY, UMICRO ####[facility] [address] [address]Dr. Donis Mancini SPEC GRAVITY 1.015 Normal 1.005-<=1.025 [facility] Comment on above: Performed By: #### U ACSWENDY, UMICRO ####[facility] [address] [address]Dr. Donis Mancini UA PROTEIN Negative Normal NEGATIVE/ TRACE [facility] Comment on above: Performed By: #### U ACSWENDY, UMICRO ####[facility] [address] [address]Dr. Donis Mancini UR MICRO IND INDICATED Normal [facility] Comment on above: Performed By: #### U ACSWENDY, UMICRO ####[facility] [address] [address]Dr. Donis Mancini Urobilinogen Qn (U) 0.2 {Sarah'U}/dL Normal 0.2 - 1. [address] [facility] Comment on above: Performed By: #### U ACSWENDY, UMICRO ####[facility] [address] [address]Dr. Donis Mancini URINE MICROSCOPIC ONLYon BACTERIA MODERATE Abnormal NONE SEEN [facility] Comment on above: Performed By: #### U ACSIND, UMICRO ####[facility] [address] [address]Dr. Donis Mancini Bacteria identified Cx Nom (U) INDICATED Normal [facility] Comment on above: Performed By: #### U NELSON UMICRO ####[facility] [address] [address]Dr. Donis Mancini CAST NONE SEEN Normal NONE SEEN [facility] Comment on above: Performed By: #### U NELSON UMICRO ####[facility] [address] [address]Dr. Donis Mancini Crystals LM Nom (Urine sed) NONE SEEN Normal NONE SEEN [facility] Comment on above: Performed By: #### U NELSON UMICRO ####[facility] [address] [address]Dr. Donis Mancini Epithelial cells LM Ql (Urine sed) MODERATE Abnormal NONE SEEN /RARE [facility] Comment on above: Performed By: #### U NELSON UMICRO ####[facility] [address] [address]Dr. Donis Mancini MUCOUS NONE SEEN Normal NONE SEEN [facility] Comment on above: Performed By: #### Shala DAMON UMICRO ####[facility] [address] [address]Dr. Donis Mancini RBC NONE SEEN Abnormal 0-[address] [facility] Comment on above: Performed By: #### U NELSON UMICRO ####[facility] [address]ori[address] [address]Dr. Donis Mancini WBC 2-5 Abnormal NONE SEEN [facility] Comment on above: Performed By: #### Shala DAMON UMICRO ####[facility] [address] [address]Dr. Donis Mancini US KIDNEYSon 04-27-2022 US KIDNEYS [...] ANDREAS AN Date: 2022-04-27 17:48 Normal [address] [facility] CULTURE URINEon 04-16-2022 CULTURE URINE Isolate 1 [...] Trimethoprim/Sulfame thoxazole <=20 S F Normal [facility] Comment on above: Performed By: #### U RCX #### [facility] [address] [place] [address] Dr. Donis Mancini US PREG ANATOMY SINGLEon [...] ESTEFANY BENNETT Date: 2022-04-12 22:22 Normal [address] [facility] UA RANDOM W/MICROSCOPICon BACTERIA SMALL Abnormal NONE SEEN [facility] Comment on above: Performed By: #### U AMIC #### [facility] [address] [place] [address] Dr. Donis Mancini Bilirubin Ql (U) Negative Normal NEGATIVE [facility] Comment on above: Performed By: #### U AMIC #### [facility] [address] [place] [address] Dr. Donis Mancini CAST NONE SEEN Normal NONE SEEN [facility] Comment on above: Performed By: #### U AMIC #### [facility] [address] [place] [address] Dr. Donis Mancini Clarity (U) CLEAR Normal CLEAR [facility] Comment on above: Performed By: #### U AMIC #### [facility] [address] [place] [address] Dr. Donis Mancini Color (U) LT. YELLOW Normal YELLOW [facility] Comment on above: Performed By: #### U AMIC #### [facility] [address] [place] [address] Dr. Donis Mancini Crystals LM Nom (Urine sed) NONE SEEN Normal NONE SEEN [facility] Comment on above: Performed By: #### U AMIC #### [facility] [address] [place], [place] [address] Dr. Donis Mancini Epithelial cells LM Ql (Urine sed) FEW Abnormal NONE SEEN /RARE [facility] Comment on above: Performed By: #### U AMIC #### [facility] [address] [address] [address] Donis Mancini Glucose Ql (U) Negative Normal NEGATIVE [facility] Comment on above: Performed By: #### U AMIC #### [facility] [address] [address] [address] Donis Mancini Hemoglobin Ql (U) Negative Normal NEGATIVE [facility] Comment on above: Performed By: #### U AMIC #### [facility] [address] [place] [address] Dr. Donis Mancini Ketones Ql (U) Negative Normal NEGATIVE [facility] Comment on above: Performed By: #### U AMIC #### [facility] [address] [place] [address] Dr. Donis Mancini LEUKOCYTES LARGE Abnormal NEGATIVE [facility] Comment on above: Performed By: #### U AMIC #### [facility] [address] [place] [address] Dr. Donis Mancini MUCOUS NONE SEEN Normal NONE SEEN [facility] Comment on above: Performed By: #### U AMIC #### [facility] [address] [place] [address] Dr. Donis Mancini Nitrite Ql (U) Negative Normal NEGATIVE [facility] Comment on above: Performed By: #### U AMIC #### [facility] [address] [address] [address] Donis Mancini pH (U) 5.5 [pH] Normal 5-9 [facility] Comment on above: Performed By: #### U AMIC #### [facility] [address] [place] [address] Dr. Donis Mancini RBC 0-2 Normal 0-2 [facility] Comment on above: Performed By: #### U AMIC #### [facility] [address] [place] [address] Dr. Donis Mancini SPEC GRAVITY <=1.005 Abnormal 1.005-<=1.025 [facility] Comment on above: Performed By: #### U AMIC #### [facility] [address] [address] [address] Donis Mancini UA PROTEIN Negative Normal NEGATIVE/ TRACE [facility] Comment on above: Performed By: #### U AMIC #### [facility] [address] [address] [address] Donis Mancini Urobilinogen Qn (U) 0.2 {Sarah'U}/dL Normal 0.2 - 1. 0 [facility] Comment on above: Performed By: #### U AMIC #### [facility] [address] [address] [address] Donis Mancini WBC 5-10 Abnormal NONE SEEN [facility] Comment on above: Performed By: #### U AMIC #### [facility] [address] [address] [address] Donis Mancini HEP B SURFACE ANTIGEN SCREEN on 01-23-2022 HBsAg Screen Negative Normal Negative [facility] Comment on above: Performed By: #### U AMIC #### [facility] [address] [address] [address] Donis Mancini HEPATITIS C VIRUS AB W/ REFL EX QUANTon 01-23-2022 HCV AB 0.1 s/co ratio Normal 0.0-0.9 [facility] Comment on above: Performed By: #### H CVPCRR ####[facility] [address] [address]Dr. Donis Mancini Interpretation: Comment Normal [facility] Comment on above: Result Comment: Nega tive Not infected with HCV, unless recent infection is suspected or other evidence exists to indicate HCV infection. Performed By: #### H CVPCRR ####[facility] [address] [id number]. Donis Mancini HIV 1 AND 2 WITH REFLEXon HIV Screen 4th Generation wRfx Non-Reactive Normal Non Reactive [facility] Comment on above: Result Comment: HIV Negative HIV-1/HIV-2 antibodies and HIV-1 p24 antigen were NOT detected. There is no laboratory evidence of HIV infection. Performed By: #### H IV12 ####[facility] [address] [address]Dr. Donis Mancini RPR QUANTon 01-23-2022 Rapid Plasma Reagin, Quant Non-Reactive Normal NonRea<1:1 [facility] Comment on above: Result Comment: Plea se Note: This test does not meet current guidelines for screening and diagnosis of syphilis. This test is intended for following treatment response in patients being treated for syphilis infection. To screen for syphilis infection, a reflex cascade that includes both RPR and a treponema-specific assay should be utilized, such as Treponema pallidum (Syphilis) Screening Clarion (128217) or Rapid Plasma Reagin (RPR) Test With Reflex to Quantitative RPR and Confirmatory Treponema pallidum Antibodies (389083). Performed By: #### R PRQ ####[facility] [address] [place], [place] [address]Dr. Donis Mancini RUBELLA AB IGGon 01-23-2022 Rubella Antibodies, IgG 1.60 index Normal Immune >0.99 [facility] Comment on above: Result Comment: Non- immune <0.90 Equivocal 0.90 - 0.99 Immune >0.99 Performed By: #### U AMIC #### [facility] [address] [place] [address] Dr. Donis Mancini CBC AUTO DIFFon 01-22-2022 BASO # 0.1 103/ul Normal 0.0-0.[address] [facility] Comment on above: Performed By: #### U AMIC #### [facility] [address] [place] [address] Dr. Donis Mancini Basophils/100 WBC (Bld) 0.5 % Normal 0.2-2.[address] [facility] Comment on above: Performed By: #### U AMIC #### [facility] [address] [place] [address] Dr. Donis Mancini EO # 0.6 103/ul Normal 0.0-0.[address] [facility] Comment on above: Performed By: #### U AMIC #### [facility] [address] [place] [address] Dr. Donis Mancini Eosinophils/100 WBC (Bld) 5.1 % Normal 0.9-7.0 [facility] Comment on above: Performed By: #### U AMIC #### [facility] [address] [place] [address] Dr. Donis Mancini Erythrocyte distribution width (RBC) [Ratio] 12.0 % Normal 11.0-15.0 [facility] Comment on above: Performed By: #### U AMIC #### [facility] [address] [place] [address] Dr. Donis Mancini Hematocrit (Bld) [Volume fraction] 45.8 % Normal 36.0-48.[address] [facility] Comment on above: Performed By: #### U AMIC #### [facility] [address] [place] [address] Dr. Donis Mancini Hemoglobin (Bld) [Mass/Vol] 15.3 g/dL Normal 12.0-16.0 [facility] Comment on above: Performed By: #### U AMIC #### [facility] [address] [place], [place] [address] Dr. Donis Mancini IG # 0.03 10e3/ul Normal 0.00-0.[address] [facility] Comment on above: Performed By: #### U AMIC #### [facility] [address] [place] [address] Dr. Donis Mancini IG % 0.3 % Normal 0.0-0.[address] [facility] Comment on above: Performed By: #### U AMIC #### [facility] [address] [place] [address] Dr. Donis Mancini LYMPH # 1.7 103/ul Normal 1.2-3.[address] [facility] Comment on above: Performed By: #### U AMIC #### [facility] [address] [place] [address] Dr. Donis Mancini Lymphocytes/100 WBC (Bld) 15.9 % Critically low 20.5-60.[address] [facility] Comment on above: Performed By: #### U AMIC #### [facility] [address] [address] [address] Donis Mancini MANUAL DIFF REQ NO Normal [facility] Comment on above: Performed By: #### U AMIC #### [facility] [address] [address] [address] Donis Mancini MCH (RBC) [Entitic mass] 31.5 pg Normal 26.7-34.[address] [facility] Comment on above: Performed By: #### U AMIC #### [facility] [address] [address] [address] Donis Mancini MCHC (RBC) [Mass/Vol] 33.4 g/dL Normal 29.9-35.[address] [facility] Comment on above: Performed By: #### U AMIC #### [facility] [address] [address] [address] Donis Mancini MCV (RBC) [Entitic vol] 94.2 fL Normal 81.0-99.[address] [facility] Comment on above: Performed By: #### U AMIC #### [facility] [address] [address] [address] Donis Mancini MONO # 0.6 103/ul Normal 0.3-0.[address] [facility] Comment on above: Performed By: #### U AMIC #### [facility] [address] [place] [address] Dr. Donis Mancini Monocytes/100 WBC (Bld) 5.8 % Normal 1.7-12.[address] [facility] Comment on above: Performed By: #### U AMIC #### [facility] [address] [address] [address] Donis Mancini NEUT # 7.8 103/ul Critically high 1.4-6.5 [facility] Comment on above: Performed By: #### U AMIC #### [facility] [address] [address] [address] Donis Mancini Neutrophils/100 WBC (Bld) 72.4 % Normal 43.0-75.[address] [facility] Comment on above: Performed By: #### U AMIC #### [facility] [address] [address] [address] Donis Mancini Platelet mean volume (Bld) [Entitic vol] 9.9 fL Normal 9.5-13.5 [facility] Comment on above: Performed By: #### U AMIC #### [facility] [address] [address] [address] Donis Mancini PLT 281 103/ul Normal 150-[address] [facility] Comment on above: Performed By: #### U AMIC #### [facility] [address] [address] [address] Donis Mancini RBC 4.86 106/ul Normal 4.20-5.40 [facility] Comment on above: Performed By: #### U AMIC #### [facility] [address] [address] [address] Donis Mancini WBC 10.8 103/ul Normal 4.0-11.0 [facility] Comment on above: Performed By: #### U AMIC #### [facility] [address] [address] [address] Donis Mancini CULTURE URINEon 01-22-2022 CULTURE URINE Culture Observations: LIGHT GROWTH OF MIXED GENITAL RAMBO. NO POTENTIAL PATHOGENS SEEN. Normal [facility] Comment on above: Performed By: #### U RCX #### [facility] [address] [address] [address] Donis Mancini GLYCOHEMOGLOBIN A1Con 2021 ADA RECOMMENDATION SEE BELOW Normal [facility] Comment on above: Result Comment: ADA RECOMMENDED LIMIT 4.0 - 6.0 ADA THERAPEUTIC TARGET < 7.0 ACTION SUGGESTED > 7.0 Performed By: #### A 1C ####[facility] [address] [id number]. Donis Mancini Glucose [Mass/Vol] 100 mg/dL Normal [facility] Comment on above: Performed By: #### A 1C ####[facility] [address] [id number]. Donis Mancini HbA1c (Bld) [Mass fraction] 5.1 % Normal 4.5-6.2 [facility] Comment on above: Performed By: #### A 1C ####[facility] [address] [place], [place] [address]Qy. Donis Mancini SEAN BOX TEST PT SEND OUTo n 01-22-2022 SENT TO REF LAB 01/22/2022 Normal [facility] Comment on above: Performed By: #### N BOX ####[facility] [address] [place], [place] [address]Yf. Donis Mancini TYPE AND SCREENon 01-22-2022 TYPE AND SCREEN Negative Normal [facility] Comment on above: Performed By: #### T NS #### [facility] [address] [place], [place] [address] Dr. Donis Mancini US PREG TVon 01-17-2022 [...] by: COCO STERN Date: 2022-01-17 09:34 Normal [facility] Provider Letteron 04-06-2021 Provider Letter April 06, 2021 Dear Amber, We have been trying to reach you with no success. It is important that you return our call regarding your appointment upon receiving this letter. Also, at the time of your call, please provide us with your current information. Thank you for your prompt attention to this matter. Sincerely, [facility] [address] [place] [phone] [facility] Ambulatory Clinical Summaryo n 03-10-2021 Ambulatory Clinical Summary {[id number]}CD:[id number] Normal [facility] Ambulatory Clinical Summaryo n 03-05-2021 Ambulatory Clinical Summary {[id number]}CD:[id number] Normal [facility] Gynecology Phone Visit- Tele healthon 03-05-2021 [...] only communication with the patient located at [address] [place] [phone], with no one else. If it is [...] Ordered: Telephone Est 5 to 10 minutes [id number] Follow-up With When Contact Information Joycelyn RENNER In [address] [place] [address]- Additional Instructions: Problem List/Past Medical History Ongoing Contraception management Visit for routine vp data exam Historical Blood transfusion Lead poisoning Procedure/Surgical [...] hepatitis B adult vaccine 2001 Recorded [address] [facility] Comment on above: Result Comment: Elec tronically Signed By: Joycelyn RENNER\.jessica\Date and Time Signed: 03/05/21 16:35 EDT Ambulatory Clinical Summaryo n 03-04-2021 Ambulatory Clinical Summary {[id number]}CD:[id number] Normal [facility] Coding Summary.on 12-18-2020 Coding Summary. CODING DATE: 12/18/2020 FINAL [facility] STATUS: Home (Routine DC) PAYOR: [place] ADMIT DX: REASON FOR VISIT DX: U07.1 [...] CphT Date Saved: 12/18/2020 12:44 pm Normal [facility] Physician Orderon 12-16-2020 Physician Order [id number]:[address] [facility] Rapid COVID Antigen ([facility])on 12-16-2020 Rapid COV Int NEG Ctl Pass Normal [facility] Comment on above: Performed By: #### 2 [id number] #### [facility] [address] [place] [address] Rapid COV Int POS Ctl Pass Normal [facility] Comment on above: Performed By: #### 2 [id number] #### [facility] [address] [place] [address] SARS-CoV-2 (COVID-19) RNA INESSA+probe Ql (Unsp spec) Detected Abnormal Not Detected [facility] Comment on above: Result Comment: Left a message for callback. 12/16/2020 11:42:47 EDT Results faxed to infection control. The BD Veritor? System for Rapid Detection of SARS-CoV-2 [...] or revoked sooner. Performed By: #### 2 [id number] #### [facility] [address] [place] [address] Employed in Healthcare Unknown Normal [facility] Comment on above: Performed By: #### 2 [id number] #### [facility] [address] [place] [address] First Test Unknown Normal [facility] Comment on above: Performed By: #### 2 [id number] #### [facility] [address] [place] [address] Hospitalized? NO Normal [facility] Comment on above: Performed By: #### 2 [id number] #### [facility] [address] [place] [address] ICU NO Normal [facility] Comment on above: Performed By: #### 2 [id number] #### [facility] [address] [place] [address] ? Unknown Normal [facility] Comment on above: Performed By: #### 2 [id number] #### [facility] [address] [place] [address] Resides in a Critical Access Hospital Care Setting Unknown Normal [facility] Comment on above: Performed By: #### 2 [id number] #### [facility] [address] [place] [address] Symptomatic as defined by CDC YES Normal [facility] Comment on above: Performed By: #### 2 [id number] #### [facility] [address] [place] [address] Ambulatory Clinical Summaryo 11-25-2020 Ambulatory Clinical Summary {[id number]}CD:[id number] Normal [facility] Vital Signs Date Time Vital Sign Value Performing Clinician Facility 08-20-2024 10:55-0500 Body mass index (BMI) [Ratio] 25.93 kg/m2 Rossana BISWAS Work Phone: [facility] 08-20-2024 10:55-0500 Body weight 66.41 kg Rossana BISWAS Work Phone: [facility] 08-20-2024 10:55-0500 Diastolic blood pressure 70 mm[Hg] Rossana BISWAS Work Phone: [facility] 08-20-2024 10:55-0500 Systolic blood pressure 120 mm[Hg] Rossana BISWAS Work Phone: [facility] 08-06-2024 09:38-0500 Body mass index (BMI) [Ratio] 25.47 kg/m2 Mackenzie Michael DO Work Phone: [facility] 08-06-2024 09:38-0500 Body weight 65.23 kg Mackenzie Michael DO Work Phone: [facility] 08-06-2024 09:38-0500 Diastolic blood pressure 70 mm[Hg] Mackenzie Michael DO Work Phone: [facility] 08-06-2024 09:38-0500 Systolic blood pressure 120 mm[Hg] Mackenzie Michael DO Work Phone: [facility] 06-29-2024 09:12-0400 Body mass index (BMI) [Ratio] 24.58 kg/m2 Nom Nurse [facility] 06-29-2024 09:12-0400 Body weight 62.94 kg [facility] Nurse [facility] 06-29-2024 09:12-0400 Diastolic blood pressure 72 mm[Hg] [facility] Nurse [facility] 06-29-2024 09:12-0400 Systolic blood pressure 122 mm[Hg] [facility] Nurse [facility] 12-26-2022 13:45-0400 Body height 160.02 cm Jennifer Huston Other [facility] Other 12-26-2022 13:45-0400 Body mass index (BMI) [Ratio] 27.45 kg/m2 Jennifer Huston Other [facility] Other 12-26-2022 13:45-0400 Body temperature 97 [degF] Jennifer Huston Other [facility] Other 12-26-2022 13:45-0400 Body weight 70.31 kg Jennifer Huston Other [facility] Other 12-26-2022 13:45-0400 Diastolic blood pressure 89 mm[Hg] Jennifer Huston Other [facility] Other 12-26-2022 13:45-0400 Respiratory rate 18 /min Jennifer Huston Other [facility] Other 12-26-2022 13:45-0400 SaO2% (BldA) [Mass fraction] 100 % Jennifer Huston Other [facility] Other 12-26-2022 13:45-0400 Systolic blood pressure 135 mm[Hg] Jennifer Huston Other [facility] Other Encounters Encounter Date Encounter Type Care Provider Facility Start: 08-20-2024 End: 08-20-2024 Bamboo flowsheet Rossana BISWAS Work Phone: [facility] Start: 08-20-2024 End: 08-20-2024 Bamboo flowsheet Rossana BISWAS Work Phone: [facility] Start: 08-20-2024 End: 08-20-2024 ambulatory ROSSANA LEACH Not Available Start: 08-20-2024 End: 08-20-2024 Postop follow up visit related to original px Rossana BISWAS Work Phone: [facility] Comment on above: Postoperative examin ation Start: 08-18-2024 End: 08-18-2024 Clinisync Result Encounter Mackenzie Michael DO Work Phone: [facility] Unsolicited Start: 08-18-2024 End: 08-18-2024 Clinisync Result Encounter Mackenzie Michael DO Work Phone: [facility] Unsolicited Start: 08-10-2024 End: 08-10-2024 Clinisync Result Encounter Mackenzie Michael DO Work Phone: [facility] Unsolicited Start: 08-10-2024 End: 08-10-2024 Clinisync Result Encounter Mackenzie Michael DO Work Phone: [facility] Unsolicited Start: 08-10-2024 End: 08-10-2024 ambulatory PHYSICIAN NO [facility] Work Phone: Start: 08-10-2024 End: 08-10-2024 Departed Referred PHYSICIAN NO [facility] Start: 08-06-2024 End: 08-06-2024 Bamboo flowsheet Mackenzie Michael DO Work Phone: [facility] Start: 08-06-2024 End: 08-06-2024 Bamboo flowsheet Mackenzie Michael DO Work Phone: [facility] Start: 08-06-2024 End: 08-06-2024 ambulatory MACKENZIE MICHAEL Not Available Start: 08-06-2024 End: 08-06-2024 Office outpatient visit 15 minutes Mackenzie Michael DO Work Phone: [facility] Comment on above: Miscarriage Start: 07-21-2024 End: 07-21-2024 Clinisync Result Encounter [...] Start: 12-26-2022 End: 12-26-2022 ambulatory Jennifer Huston Other [facility] Other Start: 12-26-2022 End: 04-02-2023 Patient encounter procedure TELECOM ANALYST-C Jennifer Huston Work Phone: [facility] Work Phone: [...] End: 07-29-[address] MACKENZIE RODRIGUEZ . Facility: Start: 07-24-2022 End: 07-24-[address] MACKENZIE [...] Date Procedure Procedure Detail Performing Clinician Start: 08-18-2024 [facility] PREG QUANT HCG Core y Michael DO Work Phone: Start: 08-10-2024 ALL CBC WITH AUTO DIFF Mackenzie Michael DO Work Phone: Start: 08-10-2024 [facility] PREG QUANT HCG Core y Michael DO Work Phone: Start: 07-21-2024 ALL CBC WITH AUTO DIFF Mackenzie Michael DO Work Phone: Start: 07-21-2024 [facility] DRUG SCREEN RAPI D (URINE) Mackenzie Rodriguez DO Work Phone: Start: 06-29-2024 End: 06-29-2024 Urnls dip stick/tablet rgnt non-auto w/o micrscp Mackenzie Rodriguez DO Work Phone: Start: 12-26-2022 Plain X-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 hand TELECOM ANALYST-C Jennifer Huston Work Phone: Start: 11-02-2022 Cytp cerv/vag auto t hin layer prep mnl screen Mackenzie Rodriguez DO Work Phone: Start: 08-10-2022 Delivery of Products [...] Treatment Date Care Activity Detail Author Start: 08-20-2024 End: 08-20-2024 Patient encounter procedure 08/20/2024 10:20 AM EST Office Visit [facility] [address] [place] [address] Rossana Leach PA [address] [place], [place] [id number] [facility] Start: 08-06-2024 End: 08-06-2024 Patient encounter procedure 08/06/2024 9:10 AM EST Routine [facility] [address] [place] [address] Mackenzie Rodriguez DO [address] [place] [place], [place] [id number] [facility] Start: 06-29-2024 End: 06-29-2025 ABO/Rh ABO/Rh Lab Routine Missed menses , unspecified gestational age Expected: 06/29/2024 (Approximate), Expires: 06/29/2025 [facility] Comment on above: Expected: 06/29/2024 (Approximate), Expires: 06/29/2025 Start: 06-29-2024 End: 06-29-2025 Blood type and Indirect antibody screen panel - Blood Type and screen Lab Routine Missed menses , unspecified gestational age Expected: 06/29/2024 (Approximate), Expires: 06/29/2025 [facility] Work Phone: Comment on above: Expected: 06/29/2024 (Approximate), Expires: 06/29/2025 Start: 06-29-2024 End: 06-29-2025 Drugs of abuse panel - Urine by Screen method Rapid drug screen, urine Lab Routine , unspecified gestational age Encounter for supervision of normal first in first trimester Expected: 06/29/2024 (Approximate), Expires: 06/29/2025 [facility] Comment on above: Expected: 06/29/2024 (Approximate), Expires: 06/29/2025 Start: 06-29-2024 End: 06-29-2025 US Pelvis transvaginal US OB transvaginal Imaging Routine Missed menses Expected: 06/29/2024 (Approximate), Expires: 06/29/2025 [facility] Comment on above: Expected: 06/29/2024 (Approximate), Expires: 06/29/2025 Start: 05-27-2024 Influenza vaccination [facility] B[facility] identified in Urine by Culture Urine culture Microbiology Routine Missed menses Ordered: 06/29/2024 [facility] Comment on above: Ordered: 06/29/2024 CBC W Auto Different ial panel - Blood CBC and differential Lab Routine Missed menses , unspecified gestational age Ordered: 06/29/2024 [facility] Comment on above: Ordered: 06/29/2024 Hemoglobin A1c/Hemoglobin.total in Blood Hemoglobin A1c Lab Routine Missed menses , unspecified gestational age Ordered: 06/29/2024 [facility] Comment on above: Ordered: 06/29/2024 Hepatitis B virus surface Ag [Presence] in Serum or Plasma by Immunoassay Hepatitis B surface antigen Lab Routine Missed menses , unspecified gestational age Ordered: 06/29/2024 [facility] Comment on above: Ordered: 06/29/2024 Hepatitis C virus Ab [Presence] in Serum or Plasma by Immunoassay Hepatitis C antibody Lab Routine Missed menses , unspecified gestational age Ordered: 06/29/2024 [facility] Comment on above: Ordered: 06/29/2024 HIV-1/HIV-2 antigen/antibody combination immunoassay HIV-1 and HIV-2 antibodies Lab Routine Missed menses , unspecified gestational age Ordered: 06/29/2024 [facility] Comment on above: Ordered: 06/29/2024 Reagin Ab [Presence] in Serum by RPR RPR Lab Routine Missed menses , unspecified gestational age Ordered: 06/29/2024 [facility] Comment on above: Ordered: 06/29/2024 Rubella antibody, IgG Rubella an tibody, IgG Lab Routine Missed menses , unspecified gestational age Ordered: 06/29/2024 [facility] Comment on above: Ordered: 06/29/2024 Immunizations Immunization Date Immunization Notes Care Provider Ryne abrams 08-28-2002 influenza virus vacc ine, unspecified formulation [facility] Nurse [facility] Healthcare Payers Date Payer Category Payer Medicaid [employer] [facility] MEDICAID [id number] 2023-Present [address] [place] [address] [id number] 2023 Medicaid (Managed Care) [facility] MEDICAID [id number] 2021 [facility] [id number] 2021 Unknown BCBS BCBS [id number] 2021-Present [phone] [address] [place] [address] [id number]. [id number] 2001 Unknown [id number] 2.16.840.1.785322.3.579.2. 593 2001 Unknown [id number] 2.16.840.1.634167.3.579.2. 593 2001 Unknown [id number] 2.16.840.1.906091.3.579.2. 593 2001 Unknown [id number] 2.16.840.1.127325.3.579.2. 593 2001 Unknown [id number] 2.16.840.1.029636.3.579.2. 593 2001 Unknown [id number] 2.16.840.1.054068.3.579.2. 593 2001 Unknown [id number] 2.16.840.1.377810.3.579.2. 593 2001 Unknown [id number] 2.16.840.1.785023.3.579.2. 593 2001 Unknown [id number] 2.16840.1.597772.3.579.2. 593 2001 Unknown [id number] 2.16.840.1.271538.3.579.2. 593 2001 Unknown [id number] 2.16.840.1.170520.3.579.2. 593 2001 Unknown [id number] 2.16.840.1.686267.3.579.2. 593 2001 Unknown [id number] 2.16.840.1.751156.3.579.2. 593 2001 Unknown [id number] 2.16.840.1.803426.3.579.2. 593 2001 Unknown [id number] 2.16.840.1.049338.3.579.2. 593 2001 Unknown [id number] 2.16.840.1.406791.3.579.2. 593 2001 Unknown [id number] 2.16.840.1.766835.3.579.2. 593 2001 Unknown [id number] 2.16.840.1.978502.3.579.2. 593 2001 Unknown [id number] 2.16.840.1.494303.3.579.2. 593 2001 Unknown [id number] 2.16.840.1.608524.3.579.2. 593 2001 Unknown [id number] 2.16.840.1.502409.3.579.2. 593 2001 Unknown [id number] 2.16.840.1.599769.3.579.2. 1259 2001 Unknown [id number] 2.16.840.1.760561.3.579.2. 1259 2001 Unknown [id number] 2.16.840.1.338658.3.579.2. 1259 1959 Self-pay 1959 Unknown [id number] 1959 Unknown [id number] Unknown [id number] 2.16.840.1.093820.3.579.2. 593 Unknown [id number] 2.16.840.1.168602.3.579.2. 531 Social History Date Type Detail Facility Start: 10-13-2023 Sex Assigned At N [facility] Other Start: 2001 Sex Assigned At Female F [facility] Start: 10-13-2023 [facility] Start: 06-29-2024 End: 08-20-2024 Alcoholic beverage intake Current drinker of alcohol (finding) [facility] Start: 10-13-2023 History of Social function [facility] Start: 05-24-2024 [facility] Start: 2001 Sex assigned at Not on file [facility] Tobacco smoking stat [facility] Unknown if ever smoked [facility] Work Phone: Start: 08-11-2024 Sex Female (finding) [facility] History of Present illness Narrative 08-20-2024 TRUE Argueta - 08/20/2024 10:20 AM EST Note Date & Type Note Facility 08-20-2024 History of Presen t illness Narrative Reason for Appointment: Patient ID: Amber Funes is a 24 y.o. female who presents for Post-op Visit Patient presents today for 1 Week Post Op Follow Up appointment. MEDICATIONS No current outpatient medications ALLERGIES No Known Allergies PROBLEMS Active Ambulatory Problems Diagnosis Date Noted No Active Ambulatory Problems Resolved Ambulatory Problems Diagnosis Date Noted No Resolved Ambulatory Problems Past Medical History: Diagnosis Date Anemia Gestational diabetes History of blood transfusion Lead poisoning Miscarriage Nonsmoker Post depression (CMS/HCC) HISTORY PAST MEDICAL HISTORY SOCIAL HISTORY Past Medical History: Diagnosis Date Anemia Gestational diabetes History of blood transfusion Lead poisoning Miscarriage Nonsmoker Post depression (CMS/HCC) /anxiety Social History Tobacco Use Smoking status: Never Smokeless tobacco: Not on file Substance Use Topics Alcohol use: Yes Drug use: Never FAMILY HISTORY Family History Problem Relation Name Age of Onset Rheum arthritis Father No Known Problems Sister No Known Problems Brother SURGICAL HISTORY Past Surgical History: Procedure Laterality Date ADENOIDECTOMY 03/30/2006 DILATION AND CURETTAGE OF UTERUS 08/11/2024 INNER EAR SURGERY Ear tubes MYRINGOPLASTY W/ FAT GRAFT Right 01/20/2012 REVIEW OF SYSTEMS Review of Systems: Review of Systems Constitutional: Negative. HENT: Negative. Eyes: Negative. Respiratory: Negative. Cardiovascular: Negative. Gastrointestinal: Negative. Genitourinary: Negative. Musculoskeletal: Negative. Skin: Negative. Neurological: Negative. All other systems reviewed and are negative. Hematological: Negative. Endocrine: Negative. Allergic/Immunologic: Negative. OBJECTIVE Objective: Physical Exam Constitutional: Appearance: Normal appearance. She is normal weight. HENT: Head: Normocephalic. Cardiovascular: Rate and Rhythm: Normal rate. Pulses: Normal pulses. Pulmonary: Effort: Pulmonary effort is normal. Breath sounds: Normal breath sounds. Abdominal: Palpations: Abdomen is soft. Musculoskeletal: General: Normal range of motion. Neurological: General: No focal deficit present. Mental Status: She is alert and oriented to person, place, and time. Psychiatric: Mood and Affect: Mood normal. Behavior: Behavior normal. Thought Content: Thought content normal. Judgment: Judgment normal. Vitals and nursing note reviewed. Vitals: Estimated body mass index is 25.93 kg/m as calculated from the following: Height as of 23: 5' 3 . Weight as of this encounter: 146 lb 6.4 oz. BP: 120/70 No LMP recorded. ASSESSMENT & PLAN ICD-10-CM 1. Postoperative examination Z09 Post Op Follow Up: Patient presents today for a postop follow up after having a D&C Hysteroscopy performed at [facility] with Dr. Rodriguez. Pathology results was reviewed with the patient in great detail and all restrictions have been lifted. Follow Up: Patient is to return to the office for annual exam unless needed otherwise. Documented by TRUE Argueta on behalf of: TRUE Argueta documented in this encounter [facility] History of Present illness Narrative 08-06-2024 Diamond Borja, MARILU - 08/06/2024 9:10 AM EST Note Date & Type Note Facility 08-06-2024 History of Presen t illness Narrative Reason for Appointment: Patient ID: Amber Funes is a 24 y.o. female who presents for Miscarriage Patient presents today for Consult appointment. MEDICATIONS Current Outpatient Medications Medication Instructions ondansetron (ZOFRAN) 4 mg, Oral, Every 6 hours PRN, Take 1 tablet by mouth every 6 hours as needed for nausea. ALLERGIES No Known Allergies PROBLEMS Active Ambulatory Problems Diagnosis Date Noted No Active Ambulatory Problems Resolved Ambulatory Problems Diagnosis Date Noted No Resolved Ambulatory Problems Past Medical History: Diagnosis Date Anemia Gestational diabetes History of blood transfusion Lead poisoning Miscarriage Nonsmoker Post depression (CMS/HCC) HISTORY PAST MEDICAL HISTORY SOCIAL HISTORY Past Medical History: Diagnosis Date Anemia Gestational diabetes History of blood transfusion Lead poisoning Miscarriage Nonsmoker Post depression (CMS/HCC) /anxiety Social History Tobacco Use Smoking status: Never Smokeless tobacco: Not on file Substance Use Topics Alcohol use: Yes Drug use: Never FAMILY HISTORY Family History Problem Relation Name Age of Onset Rheum arthritis Father No Known Problems Sister No Known Problems Brother SURGICAL HISTORY Past Surgical History: Procedure Laterality Date ADENOIDECTOMY 03/30/2006 INNER EAR SURGERY Ear tubes MYRINGOPLASTY W/ FAT GRAFT Right 01/20/2012 REVIEW OF SYSTEMS Review of Systems: Review of Systems All other systems reviewed and are negative. OBJECTIVE Objective: Physical Exam Constitutional: Appearance: Normal appearance. She is well-developed. Cardiovascular: Rate and Rhythm: Normal rate and regular rhythm. Pulmonary: Effort: Pulmonary effort is normal. Breath sounds: Normal breath sounds. Abdominal: General: Bowel sounds are normal. There is no distension. Palpations: Abdomen is soft. Tenderness: There is no abdominal tenderness. There is no guarding or rebound. Musculoskeletal: General: No swelling. Normal range of motion. Right lower leg: No edema. Left lower leg: No edema. Neurological: Mental Status: She is alert and oriented to person, place, and time. Skin: General: Skin is warm and dry. Psychiatric: Mood and Affect: Mood normal. Behavior: Behavior normal. Vitals and nursing note reviewed. Exam conducted with a downstream biomanufacturing technician present. Vitals: Estimated body mass index is 25.47 kg/m as calculated from the following: Height as of 23: 5' 3 . Weight as of this encounter: 143 lb 12.8 oz. BP: 120/70 Patient's last menstrual period was 05/02/2024. ASSESSMENT & PLAN ICD-10-CM 1. Miscarriage O03.9 Patient presents today for follow up ER visit miscarriage. Discussed with patient that with future pregnancies she is to call office right away and Vaginal Progesterone suppositories called in. Patient voiced that it started as brown discharge and then began bright bleeding. Patient desires to have Suction D&C to ensure everything is cleared. Patient denies any cramping and just vaginal bleeding. Patient to discuss date with [employer] Support Specialist prior to leaving. Patient is able to obtain work note for the week and if longer is needed she will reach out to office. Documented by Daimond Borja LPN on behalf of: Mackenzie Rodriguez DO documented in this encounter [facility] History of Present illness Narrative 06-29-2024 [...] or undercooked meat, and stay away from [facility]. Patient has also been advised to [...] by: Whitney Peacock documented in this encounter [facility] Evaluation note 12-26-2022 Note Date [...] appointment to be seen soon as possible [facility] Other Evaluation note Note Date & Type Note Facility Evaluation note No assessment information availa [facility] Work Phone: Evaluation note Note Date & Type Note Facility Evaluation note Diagnosis Missed menses , unspecified gestational age Encounter for supervision of normal first in first trimester Nausea Nausea alone 7 weeks gestation of documented in this encounter [facility] Evaluation note Note Date & Type Note Facility Evaluation note Diagnosis Miscarriage Unspecified spontaneous without mention of complication documented in this encounter [facility] Evaluation note Note Date & Type Note Facility Evaluation note Diagnosis Postoperative examination Follow-up examination, following unspecified surgery documented in this encounter [facility] Summary Purpose Family History No Family History Records FoundNo Family History Records FoundNo Family History Records FoundNo Family History Records Found Advance Directives No Advanced Directives Records Found Advance Directive Response Recorded Date/ Time Advance Directives No December 27 6:21am Additional Source Comments INFORMATION SOURCE (unrecogn ized section and content) DATE CREATED AUTHOR 09/24/2021 [facility] DATE CREATED AUTHOR AUTHOR'S ORGANIZ ATION 12/07/2022 [facility] DATE CREATED AUTHOR AUTHOR'S ORGANIZ ATION 08/15/2024 [facility] DATE CREATED AUTHOR AUTHOR'S ORGANIZ ATION 08/22/2024 [facility] EPIC REASON FOR VISIT (unrecogniz ed section and content) Reason Comments Initial Visit Reason Comments Miscarriage Reason Comments Post-op Visit Care Teams (unrecognized sec tion and content) Team Status: Inactive Member Role Status Dates Jennifer Huston , TELECOM ANALYST-C Attending Provider Active Auto Body Man Relationship Specialty Start Date End Date Vaishali Zapata MD [address] [place] [address] PCP - General Family Medicine 02/04/23 Auto Body Man Relationship Specialty Start Date End Date Vaishali Zapata MD [address] [place] [address] PCP - General Family Medicine 02/04/23 Team Status: Active Member Role Status Dates PHYSICIAN NO FAMILY Primary Care Provider Active Team Status: Inactive Member Role Status Dates PHYSICIAN NO FAMILY Primary Care Provider Active Start: August 10, 2024 End: August 10, 2024 Mackenzie Rodriguez DO Attending Provider Active Start : August 10, 2024 End: August 10, 2024 Auto Body Man Relationship Specialty Start Date End Date Unallocated, MD Zuhair Aguero [facility] [place] [address] PCP - General Family Medicine 08/03/24 Auto Body Man Relationship Specialty Start Date End Date Unallocated, [place] [address] PCP - General Family Medicine 08/03/24 Auto Body Man Relationship Specialty Start Date End Date Unallocated, Rey Vo MD [address] [place], [place] [id number] PCP - General Family Medicine 08/03/24 Auto Body Man Relationship Specialty Start Date End Date Unallocated, Rey Vo MD [address] [facility] [place] [id number] PCP - General Family Medicine 08/03/24 Goals (unrecognized section and content) Goals may [...] BE BASED ON THE PRIMARY CLINICAL RECORDS. [facility]. provides no warranty or guarantee of the accuracy or completeness of information in this document.
[2024-11-19 17:30] LABS: HCG Quantitative 6254 mIU/mL
[2024-11-21 18:19] LABS: HCG Quantitative 11802 mIU/mL
== END 2024-11-23 15:04 | disposition home or self-care (01) ==
LOC: LAB 16:31
PROVIDERS: PCP Nurse Practitioner Family; Visit Provider Obstetrics & Gynecology
DX: N92.6 Irregular menstruation, unspecified (principal)
CPT/HCPCS: 36415; 84702

== ENCOUNTER 2025-01-05 09:26 | Outpatient (OUT) | payer BC, OTHER, SELFPAY ==
--- OUTSIDE RECORDS SUMMARY | 2025-01-05 09:31 | XMS_ITS | CCD ---
Author Organization [facility] Care Team Providers Care Spud Grader Name Role Phone MICHAEL ., DR MANN [...] Unavailable MISC, DR DOMINIQUE Primary Care Unavailable SPOKANE, DR COCO Danielle Consulting Unavailable MICHAEL ., DR MANN Consulting Unavailable MICHAEL ., DR MANN Admitting Unavailable MICHAEL ., DR MANN Attending Unavailable MISC, DR DOMINIQUE Primary Care Unavailable MICHAEL ., DR MANN Consulting Unavailable MICHAEL ., DR MANN Admitting Unavailable MICHAEL ., DR MANN Attending Unavailable MISC, DR DOMINIQUE Primary Care Unavailable SPOKANE, DR COCO Danielle Consulting Unavailable MICHAEL ., [...] Unavailable MICHAEL ., DR MANN Consulting Unavailable [facility], DR DOMINIQUE Primary Care Unavailable MICHAEL ., DR MANN Consulting Unavailable CARIDAD NGUYEN Admitting Unavailable CARIDAD NGUYEN Attending Unavailable DONALD, DR ESTEFANY Zurita Consulting Unavailable CARIDAD NGUYEN Consulting Unavailable Jenniefr Huston Unavailable JEFFERY Huston Attending Provider [phone] Vaishali Zapata MD Primary Care Provider Unavai lable NO FAMILY, PHYSICIAN Primary Care Provider Unava ilable Mackenzie Rodriguez DO Attending Provider Unallocated , Rey Provider Primary Care Provi krissy NO FAMILY, [...] 3 06/29/2024 08/20/2024 Discontinued (1 source) Active Progesterone 200 MG suppository (2 sources) Start: 11-12-2024 End: 12-12-2024 Progesterone 200 MG suppository Indications: History of miscarriage Insert 200 mg into the vagina at bedtime Insert suppository vaginally every night at bedtime until 12 weeks gestation 30 suppository 2 11/12/2024 12/12/2024 Active Problems Active Problems Problem Classification Problem [...] Test Name Value Interpretation Reference Range Facility US OB TRANSVAGINALon 025 US OB TRANSVAGINAL EXAM: US OB TRANSVAGINAL HISTORY: Dating. COMPARISON: None available. TECHNIQUE: Two-dimensional transvaginal grayscale ultrasound imaging of the pelvis was performed. Color Doppler evaluation of the ovaries was also performed. FINDINGS: The uterus demonstrates a normal homogeneous echotexture. The cervix measures 4 cm in length and the cervical os is closed. The right ovary is not visualized. The left ovary measures 2.7 x 1.7 x 2.7 cm and demonstrates a normal echotexture. There is normal color Doppler flow. No fluid is present within the cul-de-sac. There is a single, live intrauterine gestation identified with a heart rate of 182 beats per minute and a crown-rump length measurement of 1.9 cm, correlating to a gestational age of 8 weeks 3 days (+/- 5 days). There is a small subchorionic hemorrhage visualized. A yolk sac is visualized. IMPRESSION: 1. Single, live intrauterine gestation 8 weeks, 4 days by LMP. Today's ultrasound measurements correlate with a gestational age of 8 weeks 3 days (+/- 5 days). LYDIA by today's ultrasound is 07/23/2025. 2. Small subchorionic hemorrhage. 3. Normal color Doppler evaluation of the left ovary, the right ovary was not visualized. Electronically Signed:Praveen y signed by RADHA POE II, MD, PHD at 14-Dec-2024 08:35:59 PM [facility] Normal Not Available Comment on above: Order Comment: US OB TRANSVAGINAL No LMP recorded. TBH PREG QUANT HCGon 025 HCG QUANTITATIVE 28204 mIU/mL [facility] He ltare Comment on above: 5-50 0.2-1 WEEK 50-500 1-2 WEEKS 100-5,000 2-3 WEEKS 500-10,000 3-4 WEEKS 1,000-50,000 4-5 WEEKS 10,000-100,000 5-6 WEEKS 15,000-200,000 6-8 WEEKS 10,000-100,000 2-3 [facility]H PREG QUANT HCGon 025 HCG QUANTITATIVE 6254 mIU/mL [facility] ltare Comment on above: 5-50 0.2-1 WEEK 50-500 1-2 WEEKS 100-5,000 2-3 WEEKS 500-10,000 3-4 WEEKS 1,000-50,000 4-5 WEEKS 10,000-100,000 5-6 WEEKS 15,000-200,000 6-8 WEEKS 10,000-100,000 2-3 MON[facility]S [facility] TBH PREG QUANT HCGon 024 HCG QUANTITATIVE 6 mIU/mL [facility] ltare Comment on above: 5-50 0.2-1 WEEK 50-500 1-2 WEEKS 100-5,000 2-3 WEEKS 500-10,000 3-4 WEEKS 1,000-50,000 4-5 WEEKS 10,000-100,000 5-6 WEEKS 15,000-200,000 6-8 WEEKS 10,000-100,000 2-3 [facility] ALL CBC WITH AUTO DIFFon BASOPHILS ABSOLUTE AUTO 0 [facility] Basophils/100 WBC (Bld) 0.5 % 0.2 - 2.0 % [facility] Eosinophils/100 WBC (Bld) 6.2 % 0.9 - 7.0 % [facility] Erythrocyte distribution width (RBC) [Ratio] 11.9 % 11.0 - 15.0 % [facility] Hematocrit (Bld) [Volume fraction] 43.8 % 36.0 - 48.0 % [facility] [employer] Hemoglobin (Bld) [Mass/Vol] 14.8 g/dL 12.0 - 16.0 g/dL [facility] IMMATURE GRANULOCYTES ABS AUTO 0.02 [facility] Immature granulocytes/100 WBC (Bld) 0.2 % 0.0 - 0.5 % [facility] LYMPHOCYTES ABSOLUTE AUTO 2 [facility] Lymphocytes/100 WBC (Bld) 22.1 % 20.5 - 60.0 % [facility] MCH (RBC) [Entitic mass] 31.7 pg 26.7 - 34.0 pg [facility] MCHC (RBC) [Mass/Vol] 33.8 g/dL 29.9 - 35.2 g/dL [facility] MCV (RBC) [Entitic vol] 93.8 fL 81.0 - 99.0 fL [facility] MONOCYTES ABSOLUTE AUTO 0.5 [facility] Monocytes/100 WBC (Bld) 5.3 % 1.7 - 12.0 % [facility] NEUTROPHILS ABSOLUTE AUTO 5.8 [facility] Neutrophils/100 WBC (Bld) 65.7 % 43.0 - 75.0 % [facility] Platelet mean volume (Bld) [Entitic vol] 10 fL 9.5 - 13.5 fL [facility] Healthc are TBH EO # 0.6 [facility] TBH PLT 236 [facility] TB RBC 4.67 [facility] TB WBC 8.9 [facility] Health[facility] e [facility] Healthcar e [place] 08-10-2024 L Specimen: [id number] Received: 08/10/24 Status: CAROL Hoang Num: [id number] Spec Type: Surgical Subm Dr: Mackenzie Rodriguez Tissues: A Products of Conception - Spontaneous or Missed (CONTENTS OF CONCEPT Procedures: HE/2, Gross/Micro L4 Age/ Patient Sex Location Account Attending Physician Vimal Funes LABELL [id number] Mackenzie Rodriguez SPEC NUM: [id number] RECD: 08/10/24 STATUS: CAROL HOANG NUM: [id number] CAROLIN: 08/10/[address] [facility] [address]: Mackenzie Rodriguez ENTERED: 08/10/24 [facility] DR: Rafia,Lab SPEC TYPE: Surgical DEPT: MONICA ALTMAN ENTERED BY: [id number] RECV BY: [id number] ORDERED: HE/2, Gross/Micro L4 ORDERED: HE/2, Gross/Micro [...] villi and decidua. No tissue is identified. Ad Writer sections of the chorionic villi are submitted in cassette A1 with agency service representative sections of the decidua is submitted in cassette A2. (2, , [id number]) CPT Codes 54354 Specimen: [id number] Received: 08/10/24 Status: CAROL Hoang Num: [id number] Spec Type: Surgical Subm Dr: Mackenzie Rodriguez Tissues: A Products of Conception - Spontaneous or Missed (CONTENTS OF CONCEPT Procedures: HE/2, Gross/Agusto L4 Patient: Vimal Funes [id number] (Continued) Signed (signature on file) Josh Aragon MD 08/13/24 1647 Normal [facility] TBH PREG QUANT HCGon 024 HCG QUANTITATIVE 240 mIU/mL [facility] Hea lthcare Comment on above: 5-50 0.2-1 WEEK 50-500 1-2 WEEKS 100-5,000 2-3 WEEKS 500-10,000 3-4 WEEKS 1,000-50,000 4-5 WEEKS 10,000-100,000 5-6 WEEKS 15,000-200,000 6-8 WEEKS 10,000-100,000 2-3 MONTHS [facility] Healthcar e ALL CBC WITH AUTO DIFFon BASOPHILS ABSOLUTE AUTO 0.1 [facility] Basophils/100 WBC (Bld) 0.5 % 0.2 - 2.0 % [facility] Eosinophils/100 WBC (Bld) 2.8 % 0.9 - 7.0 % [facility] Erythrocyte distribution width (RBC) [Ratio] 11.9 % 11.0 - 15.0 % [facility] Hematocrit (Bld) [Volume fraction] 44.7 % 36.0 - 48.0 % [facility] Hem[facility] (Bld) [Mass/Vol] 15.3 g/dL 12.0 - 16.0 g/dL [facility] IMMATURE GRANULOCYTES ABS AUTO 0.03 [facility] Immature granulocytes/100 WBC (Bld) 0.3 % 0.0 - 0.5 % [facility] Interpretation and review of laboratory results Abnormal [facility] LYMPHOCYTES ABSOLUTE AUTO 1.6 [facility] Lymphocytes/100 WBC (Bld) 14.9 % Low 20.5 - 60.0 % [facility] MCH (RBC) [Entitic mass] 31.7 pg 26.7 - 34.0 pg [facility] MCHC (RBC) [Mass/Vol] 34.2 g/dL 29.9 - 35.2 g/dL [facility] MCV (RBC) [Entitic vol] 92.7 fL 81.0 - 99.0 fL [facility] MONOCYTES ABSOLUTE AUTO 0.4 [facility] Monocytes/100 WBC (Bld) 3.7 % 1.7 - 12.0 % [facility] NEUTROPHILS ABSOLUTE AUTO 8.2 High [facility] Neutrophils/100 WBC (Bld) 77.8 % High 43.0 - 75.0 % [facility] Platelet mean volume (Bld) [Entitic vol] 10 fL 9.5 - 13.5 fL [facility] are TBH EO # 0.3 [facility] TBH PLT 263 [facility] e TB RBC 4.82 [facility] e TB WBC 10.6 [facility] e CLIN[facility] No Panel Informationon 07-21 [facility] e TB DRUG SCREEN RAPID (URINE )on 07-21-2024 AMPHETAMINE SCREEN URINE Negative NEGATIVE [facility] BARBITURATES SCREEN URINE Negative NEGATIVE [facility] BENZODIAZEPINES SCREEN URINE Negative NEGATIVE [facility] BUPRENORPHINE SCREEN URINE Negative NEGATIVE [facility] Comment on above: DRUG CLASS TEST [...] 300 ng/mL CANNABINOID SCREEN URINE Negative NEGATIVE [facility] COCAINE SCREEN URINE Negative NEGATIVE [facility] METHADONE SCREEN URINE Negative NEGATIVE [facility] METHAMPHETAMINES SCREEN URINE Negative NEGATIVE [facility] OPIATE SCREEN URINE Negative NEGATIVE [facility] OXYCODONE SCREEN URINE Negative NEGATIVE [facility] PHENCYCLIDINE SCREEN URINE Negative NEGATIVE [facility] TRICYCLIC ANTIDEPRESSANT URINE Negative NEGATIVE [facility] REEFLEX IF POSITIVE CLIN[facility] HCG ( test) Ql (U)o n 06-29-2024 Interpretation and review of laboratory results Abnormal [facility] Preg Test, Ur Positive [facility] e Urinalysis macro (dipstick) panel (U)on 06-29-2024 Bilirubin, UA Negative Negative - 4(70) +++ mg/dL [facility] Blood, UA Negative Negative - 50 Jason/mcL [facility] Clarity, UA Clear [facility] re Color, UA Yellow [facility] e Glucose, UA Negative Negative - 2000(110) ++++ mg/dL [facility] Interpretation and review of laboratory results Normal [facility] Ketones, UA Negative Negative - 160(16) ++++ mg/dL [facility] Leukocytes, UA Negative Negative - 500+++ Carlos/mcL [facility] Nitrite, UA Negative Negative - Positive [facility] pH, UA 7.0 5 - 9 [facility] Healthcar e Protein, UA Negative Negative - 2000(20) ++++ mg/dL [facility] Spec Grav, UA 1.015 1 - 1.03 [facility] care Urobilinogen, UA 0.2 0.2 - 12 mg/dL [facility] Healthcar e XR hand RT min 3V*on 023 XR hand RT min 3V* [facility] [employer] Other XR hand RT min 3V* [facility] [employer] Other XR hand RT min 3V* [address] [place] [address] [facility] Other XR hand RT min 3V* [place] [address] [facility] Other XR hand RT min 3V* XRay Report [facility] Other XR hand RT min 3V* Signed [facility] Other XR hand RT min 3V* Patient: Vimal Funes MR#: [id number] [facility] [employer] Other XR hand RT min 3V* 18 [facility] Other XR hand RT min 3V* : 2000 Acct:[id number] [facility] Other XR hand RT min 3V* Age/Sex: 22 / F ADM Date: 12/26/22 [facility] Other XR hand RT min 3V* Loc: XDUCLY Room: Type: [facility] Other XR hand RT min 3V* Attending Dr: Jennifer Huston YARN DRY ROOM WORKER-C [facility] Other XR hand RT min 3V* Copies to: JEFFERY Rodriguez [facility] Other XR hand RT min 3V* Ordering Provider: JEFFERY Rodriguez [facility] Other XR hand RT min 3V* Date of Service: 12/26/22 [facility] Other XR hand RT min 3V* XR/XR hand RT min 3V*: RIGHT HAND INJURY [facility] Other XR hand RT min 3V* RIGHT HAND - 4 views [facility] Other XR hand RT min 3V* REASON FOR EXAM: Patient had right thumb hyperextended yesterday when trying to open the door. Now [facility] Other XR hand RT min 3V* with pain. [facility] Other XR hand RT min 3V* COMPARISON: None [facility] Other XR hand RT min 3V* FINDINGS: [facility] Other XR hand RT min 3V* No focal soft tissue abnormality. There appears to be avulsion fracture involving the base of the [facility] Other XR hand RT min 3V* distal phalanx of the thumb. Joint spaces appear maintained. No bony erosions. [facility] Other XR hand RT min 3V* XR/XR hand RT min 3V* [facility] Other XR hand RT min 3V* IMPRESSION: [facility] Other XR hand RT min 3V* AVULSION FRACTURE INVOLVING THE BASE OF THE DISTAL PHALANX OF THE THUMB. [facility] Other XR hand RT min 3V* Impression dictated by: Bulmaro Arias Jr., D.OGene12/26/2022 1:44 PM [facility] Other XR hand RT min 3V* Dictation Location: RADIO-PC-15 [facility] [employer] Other XR hand RT min 3V* Transcribed By: LYNETTE 12/26/22 1344 [facility] [employer] Other XR hand RT min 3V* Dictated By: Bulmaro Arias Jr, 12/26/[address] [facility] [employer] Other XR hand RT min 3V* Signed By: [facility] Other XR hand RT min 3V* 12/26/22 1344 [facility] [employer] Other PAP ACOG PANEL 2: 22 to 30on 11-09-2022 . . Normal [facility] Comment on above: Performed By: #### [id number] ####[facility] [address] [place] [address]DrGene Mancini Age Gdln ACOG Testing [facility] Comment on above: Performed By: #### [id number] ####[facility] [address] [place] [address]DrGene Mancini DIAGNOSIS: Comment [facility] Comment on above: Result Comment: NEGA TIVE FOR INTRAEPITHELIAL LESION OR MALIGNANCY. Performed By: #### [id number] ####[facility] [address] [place] [address]DrGene Mancini Methodology: Comment [facility] Comment on above: Result Comment: This liquid based ThinPrep(R) pap test was screened with the use of an image guided system. Performed By: #### 4 [id number] ####[facility] [address] [place] [address]DrGene Mancini Note: Comment [facility] Comment on above: Result Comment: The Pap smear is a screening test designed to aid in the detection of premalignant and malignant conditions of the uterine cervix. It is not a diagnostic procedure and should not be used as the sole means of detecting cervical cancer. Both false-positive and false-negative reports do occur. . Performed By: #### [id number] ####[facility] [address] [place] [address]DrGene Mancini Performed by: Comment Normal [facility] Comment on above: Result Comment: Zuleima Lin Surfacing Technician (ASCP) Performed By: #### 4 [id number] ####[facility] [address] [place] [address]DrGene Mancini Reflex Criteria: Comment Normal [facility] Comment on above: Result Comment: The HPV DNA reflex criteria were not met with this specimen result therefore, no HPV testing was performed. . Performed By: #### 4 [id number] ####[facility] [address] [place] [address]DrGene Mancini Specimen adequacy: Comment Normal [facility] Comment on above: Result Comment: Sati sfactory for evaluation. Endocervical and/or squamous metaplastic cells (endocervical component) are present. Performed By: #### 4 [id number] ####[facility] [address] [place] [address]DrGene Mancini Cytology Cervical or vaginal smear or scraping studyOrdered By: Jael Nix on 11-02-2022 [facility] e CBC AUTO DIFFon 08-11-2022 BASO # 0.0 103/ul Normal 0.0-0.1 [facility] Comment on above: Performed By: #### C T/NGNA #### [facility] [address] [place] [address] Dr. Donis Mancini Basophils/100 WBC (Bld) 0.2 % Normal 0.2-2.0 [facility] Comment on above: Performed By: #### C T/NGNA #### [facility] [address] [place] [address] Dr. Donis Mancini EO # 0.1 103/ul Normal 0.0-0.7 [facility] Comment on above: Performed By: #### C T/NGNA #### [facility] [address] [place] [address] Dr. Donis Mancini Eosinophils/100 WBC (Bld) 0.5 % Critically low 0.9-7.0 [facility] Comment on above: Performed By: #### C T/NGNA #### [facility] [address] [place] [address] Dr. Donis Mancini Erythrocyte distribution width (RBC) [Ratio] 12.5 % Normal 11.0-15.0 [facility] Comment on above: Performed By: #### C T/NGNA #### [facility] [address] [place] [address] Dr. Donis Mancini Hematocrit (Bld) [Volume fraction] 35.9 % Critically low 36.0-48.0 [facility] Comment on above: Performed By: #### C T/NGNA #### [facility] [address] [place] [address] Dr. Donis Mancini Hemoglobin (Bld) [Mass/Vol] 12.4 g/dL Normal 12.0-16.0 [facility] Comment on above: Result Comment: michelet ent delivered Performed By: #### C T/NGNA #### [facility] [address] [place] [address] Dr. Donis Mancini IG # 0.10 10e3/ul Critically high 0.00-0.03 [facility] Comment on above: Performed By: #### C T/NGNA #### [facility] [address] [place] [address] Dr. Donis Mancini IG % 0.5 % Normal 0.0-0.5 [facility] Comment on above: Performed By: #### C T/NGNA #### [facility] [address] [place] [address] Dr. Donis Mancini LYMPH # 1.5 103/ul Normal 1.2-3.8 [facility] Comment on above: Performed By: #### C T/NGNA #### [facility] [address] [place] [address] Dr. Donis Mancini Lymphocytes/100 WBC (Bld) 7.6 % Critically low 20.5-60.0 [facility] Comment on above: Performed By: #### C T/NGNA #### [facility] [address] [place] [address] Dr. Donis Mancini MANUAL DIFF REQ NO Normal [facility] Comment on above: Performed By: #### C T/NGNA #### [facility] [address] [place] [address] Dr. Donis Mancini MCH (RBC) [Entitic mass] 32.2 pg Normal 26.7-34.0 [facility] Comment on above: Performed By: #### C T/NGNA #### [facility] [address] [place] [address] Dr. Donis Mancini MCHC (RBC) [Mass/Vol] 34.5 g/dL Normal 29.9-35.2 [facility] Comment on above: Performed By: #### C T/NGNA #### [facility] [address] [place] [address] Dr. Donis Mancini MCV (RBC) [Entitic vol] 93.2 fL Normal 81.0-99.0 [facility] Comment on above: Performed By: #### C T/NGNA #### [facility] [address] [place] [address] Dr. Donis Mancini MONO # 1.3 103/ul Critically high 0.3-0.8 [facility] Comment on above: Performed By: #### C T/NGNA #### [facility] [address] [place] [address] Dr. Donis Mancini Monocytes/100 WBC (Bld) 6.8 % Normal 1.7-12.0 [facility] Comment on above: Performed By: #### C T/NGNA #### [facility] [address] [place] [address] Dr. oDnis Mancini NEUT # 16.2 103/ul Critically high 1.4-6.5 [facility] Comment on above: Performed By: #### C T/NGNA #### [facility] [address] [place] [address] Dr. Donis Mancini Neutrophils/100 WBC (Bld) 84.4 % Critically high 43.0-75.0 [facility] Comment on above: Performed By: #### C T/NGNA #### [facility] [address] [address] [address] Donis Mancini Platelet mean volume (Bld) [Entitic vol] 11.8 fL Normal 9.5-13.5 [facility] Comment on above: Performed By: #### C T/NGNA #### [facility] [address] [place] [address] [address] Donis Mancini PLT 156 103/ul Normal 150-450 [facility] Comment on above: Performed By: #### C T/NGNA #### [facility] [address] [address] [address] Donis Mancini RBC 3.85 106/ul Critically low 4.20-5.40 [facility] Comment on above: Performed By: #### C T/NGNA #### [facility] [address] [address] [address] Donis Mancini WBC 19.2 103/ul Critically high 4.0-11.0 [facility] Comment on above: Performed By: #### C T/NGNA #### [facility] [address] [place] [address] [address] Donis Mancini [facility]27 SARS-CoV-2 (COVID-19) RNA INESSA+probe Ql (Unsp spec) Not detected Normal NOT DETECTED [facility] Comment on above: Result [...] for this test is supported by the [place] of Health and Human Service's declaration that [...] be used). Performed By: #### C VDTBH ####[facility] [address] [place] [address]Dr. Donis Mancini DRUG SCREEN RAPID (URINE)on 08-10-2022 AMP Negative Normal NEGATIVE [facility] Comment on above: Performed By: #### D RUGRPD ####[facility] [address] [place], [place] [address]Dr. Laceyjavi Mancini BAR Negative Normal NEGATIVE [facility] Comment on above: Performed By: #### D RUGRPD ####[facility] [address] [place], [place] [address]Dr. Donis Mancini BUP Negative Normal NEGATIVE [facility] Comment on above: Performed By: #### D RUGRPD ####[facility] [address] [place], [place] [address]Dr. Laceyjavi Mancini BZO Negative Normal NEGATIVE [facility] Comment on above: Performed By: #### D RUGRPD ####[facility] [address] [place], [place] [address]Dr. Donis Mancini ALEXA Negative Normal NEGATIVE [facility] Comment on above: Performed By: #### D RUGRPD ####[facility] [address] [place], [place] [address]Dr. Donis [facility] CUT-OFFS SEE BELOW Normal [facility] Comment on above: Result [...] 300 ng/mL Performed By: #### D RUGRPD ####[facility] [address] [place] [id number]. Donis Mancini DRUG CUT HEADER DRUG CLASS TEST SYSTEM CUT-OFF CONCENTRATIONS ARE FOLLOWS: Normal [facility] [facility] Comment on above: Performed By: #### D RUGRPD ####[facility] [address]ks[address] [place] [id number]. Yijavi Mancini mAMP Negative Normal NEGATIVE [facility] Comment on above: Performed By: #### D RUGRPD ####[facility] [address] [place] [address]Dr. Yilan Mancini MTD Negative Normal NEGATIVE [facility] Comment on above: Performed By: #### D RUGRPD ####[facility] R[address]uf[address] [place], [place] [address]Dr. Yijavi Mancini OPI Negative Normal NEGATIVE [facility] Comment on above: Performed By: #### D RUGRPD ####[facility] A[address] [place], [place] [address]Dr. Yilan Mancini OXY Negative Normal NEGATIVE [facility] Comment on above: Performed By: #### D RUGRPD ####[facility] [address]opvnqijr[address] [place], [place] [address]Dr. Yilan Mancini PCP Negative Normal NEGATIVE [facility] Comment on above: Performed By: #### D RUGRPD ####[facility] Xnxw[address]kian[address] [place], [place] [address]Dr. Yilan Live PPX Negative Normal NEGATIVE [facility] Comment on above: Performed By: #### D RUGRPD ####[facility] [address] [place] [address]Dr. Yilan Mancini TCA Negative Normal NEGATIVE [facility] Comment on above: Performed By: #### D RUGRPD ####[facility] Oh[address]rd[address] [place], [place] [address]Dr. Donis Mancini THC Negative Normal NEGATIVE [facility] Comment on above: Performed By: #### D RUGRPD ####[facility] Dlviricwal[address] [place], [place] [address]Dr. Donis Mancini TYPE AND SCREENon 08-10-2022 TYPE AND SCREEN Negative Normal [facility] Comment on above: Performed By: #### T NS ####[facility] [address] [place], [place] [address]Ra. Donis Mancini US PREG BIOPHY W NON [...] ESTEFANY BENNETT Date: 2022-08-10 07:18 Normal [facility] US PREG GROWTHon 08-10-2022 US [...] ESTEFANY BENNETT Date: 2022-08-10 07:16 Normal [facility] CBC AUTO DIFFon 08-09-2022 BASO # 0.0 103/ul Normal 0.0-0.1 [facility] Comment on above: Performed By: #### C BC ####[facility] [address] [place] [id number]. Donis Mancini Basophils/100 WBC (Bld) 0.2 % Normal 0.2-2.0 [facility] Comment on above: Performed By: #### C BC ####[facility] R[address]vwivp[address] [place] [id number]. Donis Mancini EO # 0.4 103/ul Normal 0.0-0.7 [facility] Comment on above: Performed By: #### C BC ####[facility] Vuamszzv[address] [place], [place] [address]Dr. Donis Mancini Eosinophils/100 WBC (Bld) 2.8 % Normal 0.9-7.0 [facility] Comment on above: Performed By: #### C BC ####[facility] Vebfr[address]of[address] [place], [place] [address]Dr. Donis Mancini Erythrocyte distribution width (RBC) [Ratio] 12.2 % Normal 11.0-15.0 [facility] Comment on above: Performed By: #### C BC ####[facility] Leyorxhqtk[address] [place], [place] [address]Dr. Donis Mancini Hematocrit (Bld) [Volume fraction] 41.4 % Normal 36.0-48.0 [facility] Comment on above: Performed By: #### C BC ####[facility] Rxrwdkks[address] [place], [place] [id number]. Donis Mancini Hemoglobin (Bld) [Mass/Vol] 14.4 g/dL Normal 12.0-16.0 [facility] Comment on above: Performed By: #### C BC ####[facility] So[address]fc[address]llu[address] [place], [place] [address]Dr. Donis Mancini IG # 0.06 10e3/ul Critically high 0.00-0.03 [facility] Comment on above: Performed By: #### C BC ####[facility] Efkc[address]scke[address] [place], [place] [address]Dr. Donis Mancini IG % 0.5 % Normal 0.0-0.5 [facility] Comment on above: Performed By: #### C BC ####[facility] [address] [place] [id number]. Donis Mancini LYMPH # 1.5 103/ul Normal 1.2-3.8 [facility] Comment on above: Performed By: #### C BC ####[facility] [address]zekvnrx[address] [place] [id number]. Donis Mancini Lymphocytes/100 WBC (Bld) 11.7 % Critically low 20.5-60.0 [facility] Comment on above: Performed By: #### C BC ####[facility] [address] [place] [id number]. Donis Mancini MANUAL DIFF REQ NO Normal [facility] Comment on above: Performed By: #### C BC ####[facility] Ajc[address]pn[address] [place] [id number]. Donis Mancini MCH (RBC) [Entitic mass] 31.9 pg Normal 26.7-34.0 [facility] Comment on above: Performed By: #### C BC ####[facility] [address] [place] [id number]. Donis Mancini MCHC (RBC) [Mass/Vol] 34.8 g/dL Normal 29.9-35.2 [facility] Comment on above: Performed By: #### C BC ####[facility] Qqgsxicglg[address] [place] [id number]. Donis Mancini MCV (RBC) [Entitic vol] 91.8 fL Normal 81.0-99.0 [facility] Comment on above: Performed By: #### C BC ####[facility] [address] [place] [id number]. Donis Mancini MONO # 1.0 103/ul Critically high 0.3-0.8 [facility] Comment on above: Performed By: #### C BC ####[facility] Ukbtrpixnb[address] [place] [id number]. Donis Mancini Monocytes/100 WBC (Bld) 7.5 % Normal 1.7-12.0 [facility] Comment on above: Performed By: #### C BC ####[facility] [address] [place], [place] [address]TyGene Mancini NEUT # 10.0 103/ul Critically high 1.4-6.5 [facility] Comment on above: Performed By: #### C BC ####[facility] [address]zb[address]f14[address] [place], [place] [address]NdGene Laceyjavi Live Neutrophils/100 WBC (Bld) 77.3 % Critically high 43.0-75.0 [facility] Comment on above: Performed By: #### C BC ####[facility] [address] [place] [id number] Mancini Platelet mean volume (Bld) [Entitic vol] 11.6 fL Normal 9.5-13.5 [facility] Comment on above: Performed By: #### C BC ####[facility] Ofpojkpqay[address] [place] [id number]. Donis Mancini PLT 184 103/ul Normal 150-450 [facility] Comment on above: Performed By: #### C BC ####[facility] [address]qp[address] [place] [id number] Mancini RBC 4.51 106/ul Normal 4.20-5.40 [facility] Comment on above: Performed By: #### C BC ####[facility] [address] [place] [id number] Rahmanjavi Live WBC 12.9 103/ul Critically high 4.0-11.0 [facility] Comment on above: Performed By: #### C BC ####[facility] [address] [place] [id number] Mancini LDHon 08-09-2022 LDH 167 U/L Normal 81-234 [facility] Comment on above: Performed By: #### C T/NGNA #### [facility] [address] [place], [place] [address] Dr. Donis Mancini PROF 14(COMP METB)on 022 Albumin [Mass/Vol] 2.7 g/dL Critically low 3.4-5.0 [facility] Comment on above: Performed By: #### C T/NGNA #### [facility] [address] [place] [address] [address] Donis Mancini Albumin/Globulin [Mass ratio] 0.6 {ratio} Normal [facility] Comment on above: Performed By: #### C T/NGNA #### [facility] [address] [place] [address] [address] Donis Mancini ALP [Catalytic activity/Vol] 176 U/L Critically high 46-116 [facility] Comment on above: Performed By: #### C T/NGNA #### [facility] [address] [place] [address] [address] Donis Mancini ALT [Catalytic activity/Vol] 20 U/L Normal 14-59 [facility] Comment on above: Performed By: #### C T/NGNA #### [facility] [address] [place] [address] [address] Donis Mancini Anion gap [Moles/Vol] 12.9 mmol/L Normal [facility] Comment on above: Performed By: #### C T/NGNA #### [facility] [address] [place] [address] [address] Donis Mancini AST [Catalytic activity/Vol] 20 U/L Normal 15-37 [facility] Comment on above: Performed By: #### C T/NGNA #### [facility] [address] [place] [address] [address] Donis Mancini Bilirubin [Mass/Vol] 0.1 mg/dL Critically low 0.2-1.0 [facility] Comment on above: Performed By: #### C T/NGNA #### [facility] [address] [place] [address] [address] Donis Mancini Calcium [Mass/Vol] 9.1 mg/dL Normal 8.5-10.1 [facility] Comment on above: Performed By: #### C T/NGNA #### [facility] [address] [place] [address] [address] Donis Mancini Chloride [Moles/Vol] 104 mmol/L Normal 98-107 [facility] Comment on above: Performed By: #### C T/NGNA #### [facility] [address] [place] [address] [address] Donis Mancini CO2 [Moles/Vol] 22.9 mmol/L Normal 21.0-32.0 [facility] Comment on above: Performed By: #### C T/NGNA #### [facility] [address] [place] [address] [address] Donis Mancini Creatinine [Mass/Vol] 0.43 mg/dL Critically low 0.55-1.02 [facility] Comment on above: Performed By: #### C T/NGNA #### [facility] [address] [place] [address] Dr. Donis Mancini EGFR-AF HUNGARIAN >60 Normal >=60 [facility] Comment on above: Performed By: #### C T/NGNA #### [facility] [address] [place] [address] Dr. Donis Mancini EGFR-NON AF HUNGARIAN >60 Normal >=60 [facility] Comment on above: Performed By: #### C T/NGNA #### [facility] [address] [place] [address] Dr. Donis Mancini Globulin (S) [Mass/Vol] 4.2 g/dL Normal [facility] Comment on above: Performed By: #### C T/NGNA #### [facility] [address] [place] [address] [address] Donis Mancini Glucose [Mass/Vol] 95 mg/dL Normal 74-106 [facility] Comment on above: Performed By: #### C T/NGNA #### [facility] [address] [place] [address] [address] Donis Mancini Potassium [Moles/Vol] 3.8 mmol/L Normal 3.5-5.1 [facility] Comment on above: Performed By: #### C T/NGNA #### [facility] [address] [place] [address] [address] Donis Mancini Protein [Mass/Vol] 6.9 g/dL Normal 6.4-8.2 [facility] Comment on above: Performed By: #### C T/NGNA #### [facility] [address] [place] [address] Dr. Donis Mancini Sodium [Moles/Vol] 136 mmol/L Normal 136-145 [facility] Comment on above: Performed By: #### C T/NGNA #### [facility] [address] [place] [address] Dr. Donis Mancini Urea nitrogen [Mass/Vol] 10.0 mg/dL Normal 7.0-18.0 [facility] Comment on above: Performed By: #### C T/NGNA #### [facility] [address] [place] [address] Dr. Donis Mancini Urea nitrogen/Creatinine [Mass ratio] 23.3 mg/mg Normal [facility] Comment on above: Performed By: #### C T/NGNA #### [facility] [address] [place] [address] Dr. Donis Mancini URIC ACID SERUMon 08-09-2022 Urate [Mass/Vol] 3.6 mg/dL Normal 2.6-6.0 [facility] Comment on above: Performed By: #### C T/NGNA #### [facility] [address] [place] [address] Dr. Donis Mancini CBC AUTO DIFFon 08-07-2022 BASO # 0.0 103/ul Normal 0.0-0.1 [facility] Comment on above: Performed By: #### U AMIC #### [facility] [address] [place] [address] Dr. Donis Mancini Basophils/100 WBC (Bld) 0.2 % Normal 0.2-2.0 [facility] Comment on above: Performed By: #### U AMIC #### [facility] [address] [place] [address] Dr. Donis Mancini EO # 0.2 103/ul Normal 0.0-0.7 [facility] Comment on above: Performed By: #### U AMIC #### [facility] [address] [place] [address] [address] Donis Mancini Eosinophils/100 WBC (Bld) 1.8 % Normal 0.9-7.0 [facility] Comment on above: Performed By: #### U AMIC #### [facility] [address] [place] [address] Dr. Donis Mancini Erythrocyte distribution width (RBC) [Ratio] 12.3 % Normal 11.0-15.0 [facility] Comment on above: Performed By: #### U AMIC #### [facility] [address] [place] [address] Dr. Donis Mancini Hematocrit (Bld) [Volume fraction] 45.7 % Normal 36.0-48.0 [facility] Comment on above: Performed By: #### U AMIC #### [facility] [address] [place] [address] Dr. Donis Mancini Hemoglobin (Bld) [Mass/Vol] 16.0 g/dL Normal 12.0-16.0 [facility] Comment on above: Performed By: #### U AMIC #### [facility] [address] [place] [address] Dr. Donis Mancini IG # 0.07 10e3/ul Critically high 0.00-0.03 [facility] Comment on above: Performed By: #### U AMIC #### [facility] [address] [place] [address] Dr. Donis Mancini IG % 0.5 % Normal 0.0-0.5 [facility] Comment on above: Performed By: #### U AMIC #### [facility] [address] [place] [address] Dr. Donis Mancini LYMPH # 1.5 103/ul Normal 1.2-3.8 [facility] Comment on above: Performed By: #### U AMIC #### [facility] [address] [place] [address] Dr. Donis Mancini Lymphocytes/100 WBC (Bld) 11.2 % Critically low 20.5-60.0 [facility] Comment on above: Performed By: #### U AMIC #### [facility] [address] [place] [address] [address] Donis Mancini MANUAL DIFF REQ NO Normal [facility] Comment on above: Performed By: #### U AMIC #### [facility] [address] [place] [address] Dr. Donis Mancini MCH (RBC) [Entitic mass] 32.0 pg Normal 26.7-34.0 [facility] Comment on above: Performed By: #### U AMIC #### [facility] [address] [place] [address] Dr. Donis Mancini MCHC (RBC) [Mass/Vol] 35.0 g/dL Normal 29.9-35.2 [facility] Comment on above: Performed By: #### U AMIC #### [facility] [address] [place] [address] Dr. Donis Mancini MCV (RBC) [Entitic vol] 91.4 fL Normal 81.0-99.0 [facility] Comment on above: Performed By: #### U AMIC #### [facility] [address] [place] [address] Dr. Donis Mancini MONO # 0.9 103/ul Critically high 0.3-0.8 [facility] Comment on above: Performed By: #### U AMIC #### [facility] [address] [place] [address] Dr. Donis Mancini Monocytes/100 WBC (Bld) 6.3 % Normal 1.7-12.0 [facility] Comment on above: Performed By: #### U AMIC #### [facility] [address] [place] [address] Dr. Donis Mancini NEUT # 10.9 103/ul Critically high 1.4-6.5 [facility] Comment on above: Performed By: #### U AMIC #### [facility] [address] [place] [address] Dr. Donis Mancini Neutrophils/100 WBC (Bld) 80.0 % Critically high 43.0-75.0 [facility] Comment on above: Performed By: #### U AMIC #### [facility] [address] [place], [place] [address] Dr. Donis Mancini Platelet mean volume (Bld) [Entitic vol] 11.5 fL Normal 9.5-13.5 [facility] Comment on above: Performed By: #### U AMIC #### [facility] [address] [place], [place] [address] Dr. Donis Mancini PLT 182 103/ul Normal 150-450 [facility] Comment on above: Performed By: #### U AMIC #### [facility] [address] [place] [address] [address] Donis Mancini RBC 5.00 106/ul Normal 4.20-5.40 [facility] Comment on above: Performed By: #### U AMIC #### [facility] [address] [place] [address] [address] Donis Mancini WBC 13.6 103/ul Critically high 4.0-11.0 [facility] Comment on above: Performed By: #### U AMIC #### [facility] [address] [place] [address] [address] Donis Mancini LDHon 08-07-2022 LDH 171 U/L Normal 81-234 [facility] Comment on above: Performed By: #### C MP, URIC, LDH ####[facility] [address] [place] [address]Dr. Donis Mancini PROF 14(COMP METB)on 022 Albumin [Mass/Vol] 2.9 g/dL Critically low 3.4-5.0 [facility] Comment on above: Performed By: #### C MP, URIC, LDH ####[facility] [address] [place] [id number]. Donis Mancini Albumin/Globulin [Mass ratio] 0.6 {ratio} Normal [facility] Comment on above: Performed By: #### C MP, URIC, LDH ####[facility] [address] [place] [id number]. Donis Mancini ALP [Catalytic activity/Vol] 192 U/L Critically high 46-116 [facility] Comment on above: Performed By: #### C MP, URIC, LDH ####[facility] [address] [place] [address]Dr. Donis Mancini ALT [Catalytic activity/Vol] 23 U/L Normal 14-59 [facility] Comment on above: Performed By: #### C MP, URIC, LDH ####[facility] [address] [place], [place] [address]Dr. Donis Amncini Anion gap [Moles/Vol] 14.4 mmol/L Normal [facility] Comment on above: Performed By: #### C MP, URIC, LDH ####[facility] [address] [place], [place] [address]Dr. Donis Live AST [Catalytic activity/Vol] 23 U/L Normal 15-37 [facility] Comment on above: Performed By: #### C MP, URIC, LDH ####[facility] [address] [place], [place] [address]Dr. Donis Mancini Bilirubin [Mass/Vol] 0.2 mg/dL Normal 0.2-1.0 [facility] Comment on above: Performed By: #### C MP, URIC, LDH ####[facility] [address] [place], [place] [address]Dr. Donis Mancini Calcium [Mass/Vol] 9.4 mg/dL Normal 8.5-10.1 [facility] Comment on above: Performed By: #### C MP, URIC, LDH ####[facility] [address] [place], [place] [address]Dr. Donis Mancini Chloride [Moles/Vol] 104 mmol/L Normal 98-107 [facility] Comment on above: Performed By: #### C MP, URIC, LDH ####[facility] [address] [place], [place] [address]Dr. Donis Mancini CO2 [Moles/Vol] 21.7 mmol/L Normal 21.0-32.0 [facility] Comment on above: Performed By: #### C MP, URIC, LDH ####[facility] [address] [place], [place] [address]Dr. Donis Mancini Creatinine [Mass/Vol] 0.46 mg/dL Critically low 0.55-1.02 [facility] Comment on above: Performed By: #### C MP, URIC, LDH ####[facility] [address] [place] [address]Dr. Donis Mancini EGFR-AF HUNGARIAN >60 Normal >=60 [facility] Comment on above: Performed By: #### C MP, URIC, LDH ####[facility] [address] [place] [address]Dr. Donis Mancini EGFR-NON AF HUNGARIAN >60 Normal >=60 [facility] Comment on above: Performed By: #### C MP, URIC, LDH ####[facility] Ix[address]cyxc[address] [place] [address]Dr. Donis Mancini Globulin (S) [Mass/Vol] 4.6 g/dL Normal [facility] Comment on above: Performed By: #### C MP, URIC, LDH ####[facility] [address]vs[address]hrv[address] [place] [address]Dr. Donis Mancini Glucose [Mass/Vol] 89 mg/dL Normal 74-106 [facility] Comment on above: Performed By: #### C MP, URIC, LDH ####[facility] [address] [place] [address]Dr. Donis Mancini Potassium [Moles/Vol] 4.1 mmol/L Normal 3.5-5.1 [facility] Comment on above: Performed By: #### C MP, URIC, LDH ####[facility] [address] [place] [address]Dr. Donis Mancini Protein [Mass/Vol] 7.5 g/dL Normal 6.4-8.2 [facility] Comment on above: Performed By: #### C MP, URIC, LDH ####[facility] [address]xwpz[address] [place] [address]Dr. Donis Mancini Sodium [Moles/Vol] 136 mmol/L Normal 136-145 [facility] Comment on above: Performed By: #### C MP, URIC, LDH ####[facility] [address] [place], [place] [address]ZjDr. Donis Mancini Urea nitrogen [Mass/Vol] 8.0 mg/dL Normal 7.0-18.0 [facility] Comment on above: Performed By: #### C MP, URIC, LDH ####[facility] [address] [place], [place] [address]UuDr. Donis Mancini Urea nitrogen/Creatinine [Mass ratio] 17.4 mg/mg Normal [facility] Comment on above: Performed By: #### C MP, URIC, LDH ####[facility] [address] [place], [place] [address]QzDr. Donis Mancini PROTIMEon 08-07-2022 INR Coag (PPP) [Relative time] {INR} Normal [facility] Comment on above: Performed By: #### U AMIC #### [facility] [address] [place] [address] Dr. Donis Mancini INR GUIDELINES SEE BELOW Normal [facility] Comment on above: Result Comment: NICCI RED INR: 2.0 - 3.0 CONDITIONS NOT LISTED BELOW 2.5 - 3.5 FOR PROSTHETIC HEART VALVE REPLACEMENT 2.5 - 3.5 RECURRENT THROMBOSIS Performed By: #### U AMIC #### [facility] [address] [place] [address] Dr. Donis Mancini PT Coag (PPP) [Time] 9.8 s Normal 9.0-11.6 [facility] Comment on above: Performed By: #### U AMIC #### [facility] [address] [place] [address] Dr. Donis Mancini PTTon 08-07-2022 aPTT Coag (Bld) [Time] 28.5 s Normal 22.3-36.2 [facility] Comment on above: Performed By: #### U AMIC #### [facility] [address] [place] [address] Dr. Donis Mancini UA (CLEAN/CATCH) COMPOSITION TILE LAYER/MICRO I F IND.on 08-07-2022 Bilirubin Ql (U) Negative Normal NEGATIVE [facility] Comment on above: Performed By: #### U AMIC #### [facility] [address] [place] [address] [address] Donis Mancini Clarity (U) CLEAR Normal CLEAR [facility] Comment on above: Performed By: #### U AMIC #### [facility] [address] [place] [address] [address] Donis Mancini Color (U) LT. YELLOW Normal YELLOW [facility] Comment on above: Performed By: #### U AMIC #### [facility] [address] [place] [address] [address] Donis Mancini Glucose Ql (U) Negative Normal NEGATIVE [facility] Comment on above: Performed By: #### U AMIC #### [facility] [address] [place] [address] [address] Donis Mancini Hemoglobin Ql (U) Negative Normal NEGATIVE [facility] Comment on above: Performed By: #### U AMIC #### [facility] [address] [place] [address] Dr. Donis Mancini Ketones Ql (U) Negative Normal NEGATIVE [facility] Comment on above: Performed By: #### U AMIC #### [facility] [address] [place] [address] Dr. Donis Mancini LEUKOCYTES Negative Normal NEGATIVE [facility] Comment on above: Performed By: #### U AMIC #### [facility] [address] [place] [address] Dr. Donis Mancini Nitrite Ql (U) Negative Normal NEGATIVE [facility] Comment on above: Performed By: #### U AMIC #### [facility] [address] [address] [address] Donis Mancini pH (U) 7.0 [pH] Normal 5-9 [facility] Comment on above: Performed By: #### U AMIC #### [facility] [address] [place] [address] Dr. Donis Mancini SPEC GRAVITY <=1.005 Abnormal 1.005-<=1.025 [facility] Comment on above: Performed By: #### U AMIC #### [facility] [address] [place] [address] Dr. Donis Mancini UA PROTEIN Negative Normal NEGATIVE/ TRACE [facility] Comment on above: Performed By: #### U AMIC #### [facility] [address] [address] [address] Donis Mancini UR MICRO IND NOT INDICATED Normal [facility] Comment on above: Performed By: #### U AMIC #### [facility] [address] [address] [address] Donis Mancini Urobilinogen Qn (U) 0.2 {Sarah'U}/dL Normal 0.2 - 1. 0 [facility] Comment on above: Performed By: #### U AMIC #### [facility] [address] [address] [address] Donis Mancini URIC ACID SERUMon 08-07-2022 Urate [Mass/Vol] 3.8 mg/dL Normal 2.6-6.0 [facility] Comment on above: Performed By: #### C MP, URIC, LDH ####[facility] [address] [address]Dr. Donis Mancini URINE T PROTEIN CREAT RATIOo n 08-07-2022 UR TOTAL PROTEIN <6.0 Normal <=12.0 [facility] Comment on above: Performed By: #### C T/NGNA #### [facility] [address] [address] [address] Donis Mancini URINE CREAT 13.45 mg/dL Critically low 20.00-300.00 [facility] Comment on above: Performed By: #### C T/NGNA #### [facility] [address] [address] [address] Donis Mancini US PREG BIOPHY W [...] COCO STERN Date: 2022-08-01 08:31 Normal [facility] CHLAMYDIA/GONOCOCCUS INESSA (SW AB/URINE/PAPon 07-31-2022 Chlamydia trachomatis, INESSA Negative Normal Negative [facility] Comment on above: Performed By: #### C T/NGNA #### [facility] [address] [address] [address] Donis Mancini Neisseria gonorrhoeae, INESSA Negative Normal Negative [facility] Comment on above: Performed By: #### C T/NGNA #### [facility] [address] [address] [address] Donis Mancini VAGINITIS/VAGINOSIS DNA PROB Odmenic 07-31-2022 Mariam species Negative Normal Negative [facility] Comment on above: Performed By: #### V AGINT ####[facility] [address] [address]Dr. Donis Mancini Gardnerella vaginalis Negative Normal Negative [facility] Comment on above: Performed By: #### V AGINT ####[facility] [address] [address]Dr. Donis Mnacini Trichomonas vaginalis Negative Normal Negative [facility] Comment on above: Performed By: #### V AGINT ####[facility] [address] [address]Dr. Donis Mancini GROUP B STREP CULTUREon S. agalactiae Ag Ql (Unsp spec) Culture Observations: NEGATIVE FOR GROUP B STREPTOCOCCUS. Normal [facility] Comment on above: Performed By: #### G BSCX #### [facility] [address] [place] [address] Dr. Donis Mancini US PREG BIOPHY W [...] COCO STERN Date: 2022-07-25 09:41 Normal [facility] US PREG GROWTHon 07-11-2022 US [...] ESTEFANY BENNETT Date: 2022-07-11 19:28 Normal [facility] Covid-19 PCR (CVDTB)on 06-26 SARS-CoV-2 (COVID-19) RNA INESSA+probe Ql (Unsp spec) Not detected Normal NOT DETECTED [facility] Comment on above: Result [...] for this test is supported by the Farm Manager of Health and Human Service's declaration that [...] used). Performed By: #### C T/NGNA #### [facility] [address] [place] [address] Dr. Donis Mancini GTT 3 HR PREGon 06-03-2022 Glucose [Mass/Vol] 94 mg/dL Normal 74-106 [facility] Comment on above: Performed By: #### U AMIC #### [facility] [address] [place] [address] Dr. Donis Mancini Glucose [Mass/Vol] 147 mg/dL Normal [facility] Comment on above: Performed By: #### U AMIC #### [facility] [address] [place] [address] Dr. Donis Mancini Glucose [Mass/Vol] 159 mg/dL Normal [facility] Comment on above: Performed By: #### U AMIC #### [facility] [address] [place] [address] Dr. Donis Mancini Glucose [Mass/Vol] 151 mg/dL Normal [facility] Comment on above: Performed By: #### U AMIC #### [facility] [address] [place] [address] Dr. Donis Mancini GLUCOSE - 1HRon 05-21-2022 Glucose [Mass/Vol] 141 mg/dL Critically high 74-106 [facility] Comment on above: Performed By: #### U AMIC #### [facility] [address] [place] [address] Dr. Donis Mancini HEMOGRAM AND PLATELon 2021 Hematocrit (Bld) [Volume fraction] 39.1 % Normal 36.0-48.0 [facility] Comment on above: Performed By: #### U AMIC #### [facility] [address] [place] [address] Dr. Donis Mancini Hemoglobin (Bld) [Mass/Vol] 13.1 g/dL Normal 12.0-16.0 [facility] Comment on above: Performed By: #### U AMIC #### [facility] [address] [place] [address] Dr. Donis Mancini MCH (RBC) [Entitic mass] 32.3 pg Normal 26.7-34.0 [facility] Comment on above: Performed By: #### U AMIC #### [facility] [address] [place] [address] Dr. Donis Mancini MCHC (RBC) [Mass/Vol] 33.5 g/dL Normal 29.9-35.2 [facility] Comment on above: Performed By: #### U AMIC #### [facility] [address] [place] [address] Dr. Donis Mancini MCV (RBC) [Entitic vol] 96.5 fL Normal 81.0-99.0 [facility] Comment on above: Performed By: #### U AMIC #### [facility] [address] [place] [address] Dr. Donis Mancini PLT 220 103/ul Normal 150-450 [facility] Comment on above: Performed By: #### U AMIC #### [facility] [address] [place] [address] Dr. Donis Mancini RBC 4.05 106/ul Critically low 4.20-5.40 [facility] Comment on above: Performed By: #### U AMIC #### [facility] [address] [place] [address] Dr. Donis Mancini WBC 12.8 103/ul Critically high 4.0-11.0 [facility] Comment on above: Performed By: #### U AMIC #### [facility] [address] [place] [address] Dr. Donis Mancini US PREG BIOPHYSICAL NO [...] ESTEFANY BENNETT Date: 2022-05-11 06:25 Normal [facility] CULTURE URINEon 05-10-2022 CULTURE URINE Culture Observations: MODERATE GROWTH OF MIXED GENITAL RAMBO. NO POTENTIAL PATHOGENS SEEN. Normal [facility] Comment on above: Performed By: #### U RCX #### [facility] [address] [address] [address] Donis Mancini UA RANDOM W/MICROSCOPICon BACTERIA LARGE Abnormal NONE SEEN [facility] Comment on above: Performed By: #### U AMIC ####[facility] [address] [address]Dr. Donis Mancini Bilirubin Ql (U) Negative Normal NEGATIVE [facility] Comment on above: Performed By: #### U AMIC ####[facility] [address] [address]DrGene Mancini CAST NONE SEEN Normal NONE SEEN [facility] Comment on above: Performed By: #### U AMIC ####[facility] [address] [address]Dr. Donis Mancini Clarity (U) CLEAR Normal CLEAR [facility] Comment on above: Performed By: #### U AMIC ####[facility] [address] [address]Dr. Donis Mancini Color (U) YELLOW Normal YELLOW [facility] Comment on above: Performed By: #### U AMIC ####[facility] [address] [address]Dr. Donis Mancini Crystals LM Nom (Urine sed) NONE SEEN Normal NONE SEEN [facility] Comment on above: Performed By: #### U AMIC ####[facility] [address] [address]DrGene Mancini Epithelial cells LM Ql (Urine sed) MODERATE Abnormal NONE SEEN /RARE [facility] Comment on above: Performed By: #### U AMIC ####[facility] [address] [address]Dr. Donis Mancini Glucose Ql (U) 250 mg/dl Abnormal NEGATIVE [facility] Comment on above: Performed By: #### U AMIC ####[facility] [address] [address]Dr. Donis Mancini Hemoglobin Ql (U) TRACE-INTACT Abnormal NEGATIVE [facility] Comment on above: Performed By: #### U AMIC ####[facility] [address] [address]Dr. Donis Mancini Ketones Ql (U) Negative Normal NEGATIVE [facility] Comment on above: Performed By: #### U AMIC ####[facility] [address] [address]Dr. Donis Mancini LEUKOCYTES LARGE Abnormal NEGATIVE [facility] Comment on above: Performed By: #### U AMIC ####[facility] [address] [place], [place] [address]Dr. Donis Mancini MUCOUS NONE SEEN Normal NONE SEEN [facility] Comment on above: Performed By: #### U AMIC ####[facility] [address] [place], [place] [address]Dr. Donis Mancini Nitrite Ql (U) Negative Normal NEGATIVE [facility] Comment on above: Performed By: #### U AMIC ####[facility] [address] [address]Dr. Donis Mancini pH (U) 6.0 [pH] Normal 5-9 [facility] Comment on above: Performed By: #### U AMIC ####[facility] [address] [place], [place] [address]Dr. Donis Mancini RBC 2-5 Abnormal 0-2 [facility] Comment on above: Performed By: #### U AMIC ####[facility] [address] [address]Dr. Donis Mancini SPEC GRAVITY <=1.005 Abnormal 1.005-<=1.025 [facility] Comment on above: Performed By: #### U AMIC ####[facility] [address] [address]Dr. Donis Mancini UA PROTEIN Negative Normal NEGATIVE/ TRACE [facility] Comment on above: Performed By: #### U AMIC ####[facility] [address] [id number]. Donis Mancini Urobilinogen Qn (U) 0.2 {Sarah'U}/dL Normal 0.2 - 1. 0 [facility] Comment on above: Performed By: #### U AMIC ####[facility] [address] [place], [place] [address]Dr. Donis Mancini WBC 10-20 Abnormal NONE SEEN [facility] Comment on above: Performed By: #### U AMIC ####[facility] [address] [address]Dr. Donis Mancini CULTURE URINEon 04-27-2022 CULTURE URINE Culture Observations: LIGHT GROWTH OF MIXED GENITAL RAMBO. NO POTENTIAL PATHOGENS SEEN. Normal [facility] Comment on above: Performed By: #### U RCX ####[facility] [address] [place], [place] [address]Dr. Donis Mancini UA (CLEAN/CATCH) COMPOSITION TILE LAYER/MICRO I F IND.on 04-27-2022 Bilirubin Ql (U) Negative Normal NEGATIVE [facility] Comment on above: Performed By: #### U ACSWENDY UMICRO ####[facility] [address] [place], [place] [address]Dr. Donis Mancini Clarity (U) CLEAR Normal CLEAR [facility] Comment on above: Performed By: #### U ACSIND, UMICRO ####[facility] [address] [place], [place] [address]Dr. Donis Mancini Color (U) LT. YELLOW Normal YELLOW [facility] Comment on above: Performed By: #### U ACSIND, UMICRO ####[facility] [address] [address]Dr. Donis Mancini Glucose Ql (U) Negative Normal NEGATIVE [facility] Comment on above: Performed By: #### U ACSWENDY UMICRO ####[facility] [address] [address]Dr. Donis Mancini Hemoglobin Ql (U) Negative Normal NEGATIVE [facility] Comment on above: Performed By: #### U ACSWENDY UMICRO ####[facility] [address] [address]Dr. Donis Mancini Ketones Ql (U) Negative Normal NEGATIVE [facility] Comment on above: Performed By: #### U ACSWENDY UMICRO ####[facility] [address] [address]Dr. Donis Mancini LEUKOCYTES SMALL Abnormal NEGATIVE [facility] Comment on above: Performed By: #### U ACSWENDY UMICRO ####[facility] [address] [address]Dr. Donis Mancini Nitrite Ql (U) Negative Normal NEGATIVE [facility] Comment on above: Performed By: #### U ACSWENDY UMICRO ####[facility] [address] [address]Dr. Donis Mancini pH (U) 7.0 [pH] Normal 5-9 [facility] Comment on above: Performed By: #### U ACSWENDY UMICRO ####[facility] [address] [address]Dr. Donis Mancini SPEC GRAVITY 1.015 Normal 1.005-<=1.025 [facility] Comment on above: Performed By: #### U ACSWENDY UMICRO ####[facility] [address] [address]Dr. Donis Mancini UA PROTEIN Negative Normal NEGATIVE/ TRACE [facility] Comment on above: Performed By: #### U ACSWENDY UMICRO ####[facility] [address] [address]Dr. Donis aMncini UR MICRO IND INDICATED Normal [facility] Comment on above: Performed By: #### U ACSWENDY UMICRO ####[facility] [address] [place], [place] [address]Dr. Donis Mancini Urobilinogen Qn (U) 0.2 {Sarah'U}/dL Normal 0.2 - 1. 0 [facility] Comment on above: Performed By: #### NEFTALY MONIQUEICRO ####[facility] [address] [address]Dr. Donis Mancini URINE MICROSCOPIC ONLYon BACTERIA MODERATE Abnormal NONE SEEN [facility] Comment on above: Performed By: #### NEFTALY MONIQUEICRO ####[facility] [address] [address]Dr. Donis Mancini Bacteria identified Cx Nom (U) INDICATED Normal [facility] Comment on above: Performed By: #### NEFTALY MONIQUEICRO ####[facility] [address] [address]Dr. Donis Mancini CAST NONE SEEN Normal NONE SEEN [facility] Comment on above: Performed By: #### LORETTA MONIQUERO ####[facility] [address] [address]Dr. Donis Mancini Crystals LM Nom (Urine sed) NONE SEEN Normal NONE SEEN [facility] Comment on above: Performed By: #### LORETTA MONIQUERO ####[facility] [address] [address]Dr. Donis Mancini Epithelial cells LM Ql (Urine sed) MODERATE Abnormal NONE SEEN /RARE [facility] Comment on above: Performed By: #### NEFTALY MONIQUEICRO ####[facility] [address] [address]Dr. Donis Mancini MUCOUS NONE SEEN Normal NONE SEEN [facility] Comment on above: Performed By: #### U NEFTALY DAMONICRO ####[facility] [address] [address]Dr. Donis Mancini RBC NONE SEEN Abnormal 0-2 [facility] Comment on above: Performed By: #### U NELSON UMICRO ####[facility] [address] [address]Dr. Donis Mancini WBC 2-5 Abnormal NONE SEEN [facility] Comment on above: Performed By: #### U ACSDONNA NGUYEN ####[facility] [address] [place], [place] [address]KfGene Mancini US KIDNEYSon 04-27-2022 US KIDNEYS EXAM: [...] ANDREAS AN Date: 2022-04-27 17:48 Normal [facility] CULTURE URINEon 04-16-2022 CULTURE URINE [...] Trimethoprim/Sulfame thoxazole <=20 S F Normal [facility] Comment on above: Performed By: #### U RCX #### [facility] [address] [place], [place] [address] Dr. Donis Mancini US PREG ANATOMY SINGLEon [...] ESTEFANY BENNETT Date: 2022-04-12 22:22 Normal [facility] UA RANDOM W/MICROSCOPICon BACTERIA SMALL Abnormal NONE SEEN [facility] Comment on above: Performed By: #### U AMIC #### [facility] [address] [place], [place] [address] Dr. Donis Mancini Bilirubin Ql (U) Negative Normal NEGATIVE [facility] Comment on above: Performed By: #### U AMIC #### [facility] [address] [place], [place] [address] Dr. Donis Mancini CAST NONE SEEN Normal NONE SEEN [facility] Comment on above: Performed By: #### U AMIC #### [facility] [address] [address] [address] Donis Mancini Clarity (U) CLEAR Normal CLEAR [facility] Comment on above: Performed By: #### U AMIC #### [facility] [address] [address] [address] Donis Mancini Color (U) LT. YELLOW Normal YELLOW [facility] Comment on above: Performed By: #### U AMIC #### [facility] [address] [address] [address] Donis Mancini Crystals LM Nom (Urine sed) NONE SEEN Normal NONE SEEN [facility] Comment on above: Performed By: #### U AMIC #### [facility] [address] [address] [address] Donis Mancini Epithelial cells LM Ql (Urine sed) FEW Abnormal NONE SEEN /RARE [facility] Comment on above: Performed By: #### U AMIC #### [facility] [address] [place] [address] Dr. Donis Mancini Glucose Ql (U) Negative Normal NEGATIVE [facility] Comment on above: Performed By: #### U AMIC #### [facility] [address] [address] [address] Donis Mancini Hemoglobin Ql (U) Negative Normal NEGATIVE [facility] Comment on above: Performed By: #### U AMIC #### [facility] [address] [place] [address] Dr. Donis Mancini Ketones Ql (U) Negative Normal NEGATIVE [facility] Comment on above: Performed By: #### U AMIC #### [facility] [address] [place] [address] Dr. Donis Mancini LEUKOCYTES LARGE Abnormal NEGATIVE [facility] Comment on above: Performed By: #### U AMIC #### [facility] [address] [address] [address] Donis Mancini MUCOUS NONE SEEN Normal NONE SEEN [facility] Comment on above: Performed By: #### U AMIC #### [facility] [address] [address] [address] Donis Mancini Nitrite Ql (U) Negative Normal NEGATIVE [facility] Comment on above: Performed By: #### U AMIC #### [facility] [address] [address] [address] Donis Mancini pH (U) 5.5 [pH] Normal 5-9 [facility] Comment on above: Performed By: #### U AMIC #### [facility] [address] [place] [address] Dr. Donis Mancini RBC 0-2 Normal 0-2 [facility] Comment on above: Performed By: #### U AMIC #### [facility] [address] [place] [address] Dr. Donis Mancini SPEC GRAVITY <=1.005 Abnormal 1.005-<=1.025 [facility] Comment on above: Performed By: #### U AMIC #### [facility] [address] [place] [address] Dr. Donis Mancini UA PROTEIN Negative Normal NEGATIVE/ TRACE [facility] Comment on above: Performed By: #### U AMIC #### [facility] [address] [place] [address] Dr. Donis Mancini Urobilinogen Qn (U) 0.2 {Sarah'U}/dL Normal 0.2 - 1. 0 [facility] Comment on above: Performed By: #### U AMIC #### [facility] [address] [place] [address] Dr. Donis Mancini WBC 5-10 Abnormal NONE SEEN [facility] Comment on above: Performed By: #### U AMIC #### [facility] [address] [place] [address] Dr. Donis Mancini HEP B SURFACE ANTIGEN SCREEN on 01-23-2022 HBsAg Screen Negative Normal Negative [facility] Comment on above: Performed By: #### U AMIC #### [facility] [address] [place] [address] Dr. Donis Mancini HEPATITIS C VIRUS AB W/ REFL EX QUANTon 01-23-2022 HCV AB 0.1 s/co ratio Normal 0.0-0.9 [facility] Comment on above: Performed By: #### H CVPCRR ####[facility] [address] [place], [place] [address]Lu. Donis Mancini Interpretation: Comment Normal [facility] Comment on above: Result Comment: Nega tive Not infected with HCV, unless recent infection is suspected or other evidence exists to indicate HCV infection. Performed By: #### H CVPCRR ####[facility] [address] [id number]. Donis Mancini HIV 1 AND 2 WITH REFLEXon HIV Screen 4th Generation wRfx Non-Reactive Normal Non Reactive [facility] Comment on above: Result Comment: HIV Negative HIV-1/HIV-2 antibodies and HIV-1 p24 antigen were NOT detected. There is no laboratory evidence of HIV infection. Performed By: #### H IV12 ####[facility] [address] [id number]. Donis Mancini RPR QUANTon 01-23-2022 Rapid Plasma Reagin, Quant Non-Reactive Normal NonRea<1:1 [facility] Comment on above: Result Comment: Plea se Note: This test does not meet current guidelines for screening and diagnosis of syphilis. This test is intended for following treatment response in patients being treated for syphilis infection. To screen for syphilis infection, a reflex cascade that includes both RPR and a treponema-specific assay should be utilized, such as Treponema pallidum (Syphilis) Screening George (610321) or Rapid Plasma Reagin (RPR) Test With Reflex to Quantitative RPR and Confirmatory Treponema pallidum Antibodies (369559). Performed By: #### R PRQ ####[facility] [address] [place] [id number]. Donis Mancini RUBELLA AB IGGon 01-23-2022 Rubella Antibodies, IgG 1.60 index Normal Immune >0.99 [facility] Comment on above: Result Comment: Non- immune <0.90 Equivocal 0.90 - 0.99 Immune >0.99 Performed By: #### U AMIC #### [facility] [address] [place], [place] [address] Dr. Donis Mancini CBC AUTO DIFFon 04-29-2022 BASO # 0.1 103/ul Normal 0.0-0.1 [facility] Comment on above: Performed By: #### U AMIC #### [facility] [address] [place] [address] Dr. Donis Mancini Basophils/100 WBC (Bld) 0.5 % Normal 0.2-2.0 [facility] Comment on above: Performed By: #### U AMIC #### [facility] [address] [place] [address] Dr. Donis Mancini EO # 0.6 103/ul Normal 0.0-0.7 [facility] Comment on above: Performed By: #### U AMIC #### [facility] [address] [place] [address] Dr. Donis Manicni Eosinophils/100 WBC (Bld) 5.1 % Normal 0.9-7.0 [facility] Comment on above: Performed By: #### U AMIC #### [facility] [address] [place] [address] Dr. Donis Mancini Erythrocyte distribution width (RBC) [Ratio] 12.0 % Normal 11.0-15.0 [facility] Comment on above: Performed By: #### U AMIC #### [facility] [address] [place] [address] Dr. Donis Mancini Hematocrit (Bld) [Volume fraction] 45.8 % Normal 36.0-48.0 [facility] Comment on above: Performed By: #### U AMIC #### [facility] [address] [place] [address] Dr. Donis Mancini Hemoglobin (Bld) [Mass/Vol] 15.3 g/dL Normal 12.0-16.0 [facility] Comment on above: Performed By: #### U AMIC #### [facility] [address] [place] [address] Dr. Donis Mancini IG # 0.03 10e3/ul Normal 0.00-0.03 [facility] Comment on above: Performed By: #### U AMIC #### [facility] [address] [place] [address] Dr. Donis Mancini IG % 0.3 % Normal 0.0-0.5 [facility] Comment on above: Performed By: #### U AMIC #### [facility] [address] [place] [address] Dr. Donis Mancini LYMPH # 1.7 103/ul Normal 1.2-3.8 [facility] Comment on above: Performed By: #### U AMIC #### [facility] [address] [place] [address] Dr. Donis Mancini Lymphocytes/100 WBC (Bld) 15.9 % Critically low 20.5-60.0 [facility] Comment on above: Performed By: #### U AMIC #### [facility] [address] [place] [address] Dr. Donis Mancini MANUAL DIFF REQ NO Normal [facility] Comment on above: Performed By: #### U AMIC #### [facility] [address] [place] [address] Dr. Donis Mancini MCH (RBC) [Entitic mass] 31.5 pg Normal 26.7-34.0 [facility] Comment on above: Performed By: #### U AMIC #### [facility] [address] [place] [address] Dr. Donis Mancini MCHC (RBC) [Mass/Vol] 33.4 g/dL Normal 29.9-35.2 [facility] Comment on above: Performed By: #### U AMIC #### [facility] [address] [place] [address] Dr. Donis Mancini MCV (RBC) [Entitic vol] 94.2 fL Normal 81.0-99.0 [facility] Comment on above: Performed By: #### U AMIC #### [facility] [address] [place] [address] Dr. Donis Mancini MONO # 0.6 103/ul Normal 0.3-0.8 [facility] Comment on above: Performed By: #### U AMIC #### [facility] [address] [place] [address] Dr. Donis Mancini Monocytes/100 WBC (Bld) 5.8 % Normal 1.7-12.0 [facility] Comment on above: Performed By: #### U AMIC #### [facility] [address] [address] [address] Donis Mancini NEUT # 7.8 103/ul Critically high 1.4-6.5 [facility] Comment on above: Performed By: #### U AMIC #### [facility] [address] [address] [address] Donis Mancini Neutrophils/100 WBC (Bld) 72.4 % Normal 43.0-75.0 [facility] Comment on above: Performed By: #### U AMIC #### [facility] [address] [place] [address] Dr. Donis Mancini Platelet mean volume (Bld) [Entitic vol] 9.9 fL Normal 9.5-13.5 [facility] Comment on above: Performed By: #### U AMIC #### [facility] [address] [address] [address] Donis Mancini PLT 281 103/ul Normal 150-450 [facility] Comment on above: Performed By: #### U AMIC #### [facility] [address] [place] [address] Dr. Donis Mancini RBC 4.86 106/ul Normal 4.20-5.40 [facility] Comment on above: Performed By: #### U AMIC #### [facility] [address] [place] [address] Dr. Donis Mancini WBC 10.8 103/ul Normal 4.0-11.0 [facility] Comment on above: Performed By: #### U AMIC #### [facility] [address] [address] [address] Donis Mancini CULTURE URINEon 01-22-2022 CULTURE URINE Culture Observations: LIGHT GROWTH OF MIXED GENITAL RAMBO. NO POTENTIAL PATHOGENS SEEN. Normal [facility] Comment on above: Performed By: #### U RCX #### [facility] [address] [place] [address] Dr. Donis Mancini GLYCOHEMOGLOBIN A1Con 2021 ADA RECOMMENDATION SEE BELOW Normal [facility] Comment on above: Result Comment: ADA RECOMMENDED LIMIT 4.0 - 6.0 ADA THERAPEUTIC TARGET < 7.0 ACTION SUGGESTED > 7.0 Performed By: #### A 1C ####[facility] [address] [id number]. Donis Mancini Glucose [Mass/Vol] 100 mg/dL Normal [facility] Comment on above: Performed By: #### A 1C ####[facility] [address] [id number]. Donis Mancini HbA1c (Bld) [Mass fraction] 5.1 % Normal 4.5-6.2 [facility] Comment on above: Performed By: #### A 1C ####[facility] [address] [id number]. Donis Mancini SEAN BOX TEST PT SEND OUTo n 01-22-2022 SENT TO REF LAB 01/22/2022 Normal The [facility] Comment on above: Performed By: #### N BOX ####[facility] [address] [id number]. Donis Mancini TYPE AND SCREENon 01-22-2022 TYPE AND SCREEN Negative Normal [facility] Comment on above: Performed By: #### T NS #### [facility] [id number] Donis Mancini US PREG TVon 01-17-2022 [...] by: COCO STERN Date: 2022-01-17 09:34 Normal [facility] Provider Letteron 04-06-2021 Provider Letter April 06, 2021 Dear Vimal, We have been trying to reach you with no success. It is important that you return our call regarding your appointment upon receiving this letter. Also, at the time of your call, please provide us with your current information. Thank you for your prompt attention to this matter. Sincerely, triptaps [employer] [place] [address] Normal [facility] Ambulatory Clinical Summaryo n 03-10-2021 Ambulatory Clinical Summary {[id number]}CD:[id number] Normal [facility] Ambulatory Clinical Summaryo n 03-05-2021 Ambulatory Clinical Summary {[id number]}CD:[id number] Normal [facility] Gynecology Phone Visit- Tele healthon 03-05-2021 [...] only communication with the patient located at [address] [place] [address] [place] [id number], with no one else. 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 CODING DATE: 12/18/2020 [facility] STATUS: Home (Routine DC) PAYOR: [place] ADMIT DX: REASON FOR VISIT DX: U07.1 [...] Galvan CphT Date Saved: 12/18/2020 12:44 pm [facility] Physician Orderon 12-16-2020 Physician Order [id number] #[id number]:127 [facility] Rapid COVID Antigen ([facility])on 12-16-2020 Rapid COV Int NEG Ctl Pass Normal [facility] Comment on above: Performed By: #### 2 [id number] #### [facility] [address] [place] [address] Rapid COV Int POS Ctl Pass Normal [facility] Comment on above: Performed By: #### 2 [id number] #### [facility] [address] [place] [address] SARS-CoV-2 (COVID-19) RNA INESSA+probe Ql (Unsp spec) Detected Abnormal Not Detected [facility] Comment on above: Result Comment: Left a message for callback. 12/16/2020 11:42:47 EDT Results faxed to infection control. The [employer]? System for Rapid Detection of SARS-CoV-2 is [...] For in vitro diagnostic use. In the [facility], only for use under an Emergency Use [...] or revoked sooner. Performed By: #### 2 [id number] #### [facility] [address] [place] [address] Employed in Healthcare Unknown Normal [facility] Comment on above: Performed By: #### 2 [id number] #### [facility] [address] [place] [address] First Test Unknown Normal [facility] Comment on above: Performed By: #### 2 [id number] #### [facility] [address] [place] [address] Hospitalized? NO Normal [facility] Comment on above: Performed By: #### 2 [id number] #### [facility] [address] [place] [address] ICU NO Normal [facility] Comment on above: Performed By: #### 2 [id number] #### [facility] [address] [place] [address] ? Unknown Normal [facility] Comment on above: Performed By: #### 2 [id number] #### [facility] [address] [place] [address] Resides in a Congregate Care Setting Unknown Normal [facility] Comment on above: Performed By: #### 2 [id number] #### [facility] [address] [place] [address] Symptomatic as defined by CDC YES Normal [facility] Comment on above: Performed By: #### 2 [id number] #### [facility] [address] [place] [address] Ambulatory Clinical Summaryo n 11-25-2020 Ambulatory Clinical Summary {[id number]}CD:[id number] Normal [facility] Vital Signs Date Time Vital Sign Value Performing Clinician Facility 08-20-2024 10:55-0500 Body mass index (BMI) [Ratio] 25.93 kg/m2 Rossana BISWAS Work Phone: [facility] 08-20-2024 10:55-0500 Body weight 66.41 kg Rossana BISWAS Work Phone: [facility] 08-20-2024 10:55-0500 Diastolic blood pressure 70 mm[Hg] Rossana BISWAS Work Phone: [facility] 08-20-2024 10:55-0500 Systolic blood pressure 120 mm[Hg] Rossana BISWAS Work Phone: [facility] 08-06-2024 09:38-0500 Body mass index (BMI) [Ratio] 25.47 kg/m2 Mackenzie Michael DO Work Phone: [facility] 08-06-2024 09:38-0500 Body weight 65.23 kg Mackenzie Michael DO Work Phone: [facility] 08-06-2024 09:38-0500 Diastolic blood pressure 70 mm[Hg] Mackenzie Michael DO Work Phone: [facility] 08-06-2024 09:38-0500 Systolic blood pressure 120 mm[Hg] Mackenzie Michael DO Work Phone: [facility] 06-29-2024 09:12-0400 Body mass index (BMI) [Ratio] 24.58 kg/m2 Nom Nurse [facility] 06-29-2024 09:12-0400 Body weight 62.94 kg Nom Nurse [facility] 06-29-2024 09:12-0400 Diastolic blood pressure 72 mm[Hg] [facility] Nurse [facility] 06-29-2024 09:12-0400 Systolic blood pressure 122 mm[Hg] [facility] Nurse [facility] 12-26-2022 13:45-0400 Body height 160.02 cm Jennifer Huston Other [facility] Other 12-26-2022 13:45-0400 Body mass index (BMI) [Ratio] 27.45 kg/m2 Jennifer Huston Other [facility] Other 12-26-2022 13:45-0400 Body temperature 97 [degF] Jennifer Huston Other [facility] Other 12-26-2022 13:45-0400 Body weight 70.31 kg Jennifer Huston Other [facility] Other 12-26-2022 13:45-0400 Diastolic blood pressure 89 mm[Hg] Jennifer Huston Other [facility] Other 12-26-2022 13:45-0400 Respiratory rate 18 /min Jennifer Huston Other [facility] Other 12-26-2022 13:45-0400 SaO2% (BldA) [Mass fraction] 100 % Jennifer Huston Other [facility] Other 12-26-2022 13:45-0400 Systolic blood pressure 135 mm[Hg] Jennifer Huston Other [facility] Other Encounters Encounter Date Encounter Type Care Provider Facility Start: 12-14-2024 End: 12-14-2024 ambulatory MACKENZIE MICHAEL Not Available Start: 11-21-2024 End: 11-21-2024 Clinisync Result Encounter Mackenzie Michael DO Work Phone: [facility] Unsolicited Start: 11-21-2024 End: 11-21-2024 Clinisync Result Encounter Mackenzie Michael DO Work Phone: [facility] Unsolicited Start: 11-19-2024 End: 11-19-2024 Clinisync Result Encounter Mackenzie Michael DO Work Phone: [facility] Unsolicited Start: 11-19-2024 End: 11-19-2024 Clinisync Result Encounter Mackenzie Michael DO Work Phone: [facility] Unsolicited Start: 08-20-2024 End: 08-20-2024 Bamboo flowsheet Rossana BISWAS Work Phone: [facility] Start: 08-20-2024 End: 08-20-2024 Bamboo flowsheet Rossana Leach PA Work Phone: [facility] Start: 08-20-2024 [...] Start: 08-10-2024 End: 08-10-2024 ambulatory PHYSICIAN NO [facility] Work Phone: Start: 08-10-2024 End: 08-10-2024 Departed Referred PHYSICIAN NO [facility] Start: 08-06-2024 End: 08-06-2024 Bamboo flowsheet [...] 12-26-2022 End: 12-26-2022 ambulatory Jennifer Huston Other [facility] Other Start: 12-26-2022 End: 12-26-2022 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 Facility:[facility] Start: 06-03-2022 End: 06-04-2022 ambulatory [...] Date Procedure Procedure Detail Performing Clinician Start: 11-21-2024 [facility] PREG QUANT HCG Muna y Michael DO Work Phone: Start: 11-19-2024 [facility] PREG QUANT HCG Core y Michael DO Work Phone: Start: 08-18-2024 [facility] PREG QUANT HCG Core y Michael DO Work Phone: Start: 08-10-2024 ALL CBC WITH AUTO DIFF Mackenzie Michael DO Work Phone: Start: 08-10-2024 [facility] PREG QUANT HCG Core y Michael DO Work Phone: Start: 07-21-2024 ALL CBC WITH AUTO DIFF Mackenzie Michael DO Work Phone: Start: 07-21-2024 [facility] DRUG SCREEN RAPI D (URINE) [facility] DO Work Phone: Start: 06-29-2024 End: 06-29-2024 Urnls dip stick/tablet rgnt non-auto w/o micrscp [facility] DO Work Phone: Start: 12-26-2022 Plain X-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 hand 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 Start: 08-10-2022 Division of Female Perineum, External Approach DR MACKENZIE RODRIGUEZ . Start: 08-10-2022 Drainage of Amniotic Fluid, Therapeutic from Products of Conception, Via Natural or Artificial Opening DR MACKENZIE RODRIGUEZ . Start: 08-10-2022 Introduction of Othe r Hormone into Peripheral Vein, Percutaneous Approach DR MACKENZIE RODRIGUEZ . Plan of Treatment Date Care Activity Detail Author Start: 12-14-2024 End: 12-14-2024 ambulatory 12/14/2024 9:00 AM EDT Initial [facility] [address] [phone] [facility] Start: 12-14-2024 End: 12-14-2024 Professional / ancillary services management 12/14/2024 8:30 AM EDT Ancillary Procedure [facility] [address] [place] [id number] [facility] Start: 08-20-2024 End: 08-20-2024 Patient encounter procedure 08/20/2024 10:20 AM EST Office Visit [facility] [address] [place] [phone] Rossana Leach PA [address] [place], [place] [id number] [facility] Start: 08-06-2024 End: 08-06-2024 Patient encounter procedure 08/06/2024 9:10 AM EST Routine [facility] [address] [place] [phone] Mackenzie Rodriguez DO [address] [place] [place], [place] [id number] [facility] Start: 06-29-2024 End: 06-29-2025 ABO/Rh ABO/Rh Lab Routine Missed menses , unspecified gestational age Expected: 06/29/2024 (Approximate), Expires: 06/29/2025 [facility] Comment on above: Expected: 06/29/2024 (Approximate), Expires: 06/29/2025 Start: 06-29-2024 End: 06-29-2025 Blood type and Indirect antibody screen panel - Blood Type and screen Lab Routine Missed menses , unspecified gestational age Expected: 06/29/2024 (Approximate), Expires: 06/29/2025 [facility] Work Phone: Comment on above: Expected: 06/29/2024 (Approximate), Expires: 06/29/2025 Start: 06-29-2024 End: 06-29-2025 Drugs of abuse panel - Urine by Screen method Rapid drug screen, urine Lab Routine , unspecified gestational age Encounter for supervision of normal first in first trimester Expected: 06/29/2024 (Approximate), Expires: 06/29/2025 [facility] Comment on above: Expected: 06/29/2024 (Approximate), Expires: 06/29/2025 Start: 06-29-2024 End: 06-29-2025 US Pelvis transvaginal US OB transvaginal Imaging Routine Missed menses Expected: 06/29/2024 (Approximate), Expires: 06/29/2025 [facility] Comment on above: Expected: 06/29/2024 (Approximate), Expires: 06/29/2025 Start: 05-27-2024 Influenza vaccination Influenza Vacc ine (#1) [facility] Bacteria identified in Urine by Culture Urine culture Microbiology Routine Missed menses Ordered: 06/29/2024 [facility] Comment on above: Ordered: 06/29/2024 CBC W Auto Different ial panel - Blood CBC and differential Lab Routine Missed menses , unspecified gestational age Ordered: 06/29/2024 [facility] Comment on above: Ordered: 06/29/2024 Hemoglobin A1c/Hemoglobin.total in Blood Hemoglobin A1c Lab Routine Missed menses , unspecified gestational age Ordered: 06/29/2024 [facility] Comment on above: Ordered: 06/29/2024 Hepatitis B virus surface Ag [Presence] in Serum or Plasma by Immunoassay Hepatitis B surface antigen Lab Routine Missed menses , unspecified gestational age Ordered: 06/29/2024 [facility] Comment on above: Ordered: 06/29/2024 Hepatitis C virus Ab [Presence] in Serum or Plasma by Immunoassay Hepatitis C antibody Lab Routine Missed menses , unspecified gestational age Ordered: 06/29/2024 [facility] Comment on above: Ordered: 06/29/2024 HIV-1/HIV-2 antigen/antibody combination immunoassay HIV-1 and HIV-2 antibodies Lab Routine Missed menses , unspecified gestational age Ordered: 06/29/2024 [facility] Comment on above: Ordered: 06/29/2024 Reagin Ab [Presence] in Serum by RPR RPR Lab Routine Missed menses , unspecified gestational age Ordered: 06/29/2024 [facility] Comment on above: Ordered: 06/29/2024 Rubella antibody, IgG Rubella an tibody, IgG Lab Routine Missed menses , unspecified gestational age Ordered: 06/29/2024 [facility] Comment on above: Ordered: 06/29/2024 Immunizations Immunization Date Immunization Notes Care Provider Ryne aguirremary kay 08-28-2003 influenza virus vacc ine, unspecified formulation Noms Nurse [facility] Payers Date Payer Category Payer Medicaid [employer] [id number] 2023-Present [address] [place] [address] [id number] 2023 Medicaid (Managed Care) [facility] MEDICA[facility] [id number] 2021 Blue Cross Blue Shield 1.2.8 [id number] 2021 Unknown BCBS BCBS [id number] 2021-Present [phone] [address] [place] [address] [id number]. [id number] 2001 Unknown [id number] 2.16.840.1.116566.3.579.2. 593 2001 Unknown [id number] 2.16.840.1.815386.3.579.2. 593 2001 Unknown [id number] 2.16.840.1.093008.3.579.2. 593 2001 Unknown [id number] 2.16.840.1.904537.3.579.2. 593 2001 Unknown [id number] 2.16.840.1.599915.3.579.2. 593 2001 Unknown [id number] 2.16.840.1.337148.3.579.2. 593 2001 Unknown [id number] 2.16.840.1.282422.3.579.2. 593 2001 Unknown [id number] 2.16.840.1.953530.3.579.2. 593 2001 Unknown [id number] 2.16.840.1.420004.3.579.2. 593 2001 Unknown [id number] 2.16.840.1.127062.3.579.2. 593 2001 Unknown [id number] 2.16840.1.804284.3.579.2. 593 2001 Unknown [id number] 2.16.840.1.203607.3.579.2. 593 2001 Unknown [id number] 2.16.840.1.662124.3.579.2. 593 2001 Unknown [id number] 2.16.840.1.869735.3.579.2. 593 2001 Unknown [id number] 2.16840.1.234432.3.579.2. 593 2001 Unknown [id number] 2.16.840.1.783744.3.579.2. 593 2001 Unknown [id number] 2.16.840.1.727032.3.579.2. 593 2001 Unknown [id number] 2.16.840.1.818517.3.579.2. 593 2001 Unknown [id number] 2.16.840.1.221325.3.579.2. 593 2001 Unknown [id number] 2.16.840.1.339594.3.579.2. 593 2001 Unknown [id number] 2.16.840.1.469354.3.579.2. 593 2001 Unknown [id number] 2.16.840.1.217350.3.579.2. 1259 2001 Unknown [id number] 2.16.840.1.568399.3.579.2. 9 2001 Unknown [id number] 2.16.840.1.195394.3.579.2. 1259 2001 Unknown [id number] 2.16.840.1.664175.3.579.2. 9 2001 Unknown [id number] 2.16.840.1.928917.3.579.2. 1259 1959 Self-pay 1959 Unknown [id number] 1959 Unknown [id number] Unknown [id number] 2.16.840.1.640638.3.579.2. 593 Unknown [id number] 2.16.840.1.542906.3.579.2. 531 Social History Date Type Detail Facility Start: 10-13-2023 End: 06-29-[address] [facility] triptap Other Start: 2000 Sex Assigned At Female F [facility] Start: 10-13-2023 Tobacco smoking stat [email or web address] Never smoked tobacco [facility] Start: 06-29-2024 End: 08-20-2024 Alcoholic beverage intake Current drinker of alcohol (finding) [facility] Start: 10-13-2023 End: 06-29-2024 History of Social function [facility] Start: 05-24-2024 [facility] Start: 2001 Sex assigned at Not on file [facility] Tobacco smoking stat [facility] Unknown if ever smoked [facility] Work Phone: Start: 08-11-2024 Sex Female (finding) [facility] History of Present illness Narrative 08-20-2024 TRUE [...] having a D&C Hysteroscopy performed at [facility] with Dr. Rodriguez. Pathology results was reviewed with the patient in great detail and all restrictions have been lifted. Follow Up: Patient is to return to the office for annual exam unless needed otherwise. 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 Exam conducted with a tool procurement coordinator present. Vitals: Estimated body mass index is [...] vaginal bleeding. Patient to discuss date with Tip Fixer prior to leaving. Patient is able to obtain work note for the week and if longer is needed she will reach out to office. Documented by Diamond Borja LPN on behalf of: Mackenzie Rodriguez [...] blood transfusion Lead poisoning Nonsmoker Post depression ([facility]) Family History Problem Relation Name [...] or undercooked meat, and stay away from [facility]. Patient has also been advised to not [...] by: Whitney Peacock documented in this encounter [facility] Evaluation note 12-26-2022 Note Date [...] appointment to be seen soon as possible [facility] Other Evaluation note Note Date & Type Note Facility Evaluation note [facility]: Evaluation note Note Date & Type Note Facility Evaluation note Diagnosis Missed menses , unspecified gestational age Encounter for supervision of normal first in first trimester Nausea Nausea alone 7 weeks gestation of documented in this encounter [facility] Evaluation note Note Date & Type Note Facility Evaluation note Diagnosis Miscarriage Unspecified spontaneous without mention of complication documented in this encounter [facility] Evaluation note Note Date & Type [...] and content) DATE CREATED AUTHOR 09/24/2021 [facility] DATE CREATED AUTHOR AUTHOR'S ORGANIZ ATION 12/07/2022 [facility] DATE CREATED AUTHOR AUTHOR'S ORGANIZ ATION 08/15/2024 [facility] DATE CREATED AUTHOR AUTHOR'S ORGANIZ ATION 12/15/2024 [facility] EPIC REASON FOR VISIT (unrecogniz ed section and content) Reason Comments Initial Visit Reason Comments Miscarriage Reason Comments Post-op Visit Care Teams (unrecognized sec tion and content) Team Status: Inactive Member Role Status Dates Jennifer Huston NP-C Attending Provider Active Spud Grader Relationship Specialty Start Date End Date Vaishali Zapata MD [address] [place] [address] PCP - General Family Medicine 02/04/23 Spud Grader Relationship Specialty Start Date End Date Vaishali Zapata MD [address] [place] [address] PCP - General Family Medicine 02/04/23 Team Status: Active Member Role Status Dates PHYSICIAN NO FAMILY Primary Care Provider Active Team Status: Inactive Member Role Status Dates PHYSICIAN NO FAMILY Primary Care Provider Active Start: August 10, 2024 End: August 10, 2024 Mackenzie Rodriguez DO Attending Provider Active Start : August 10, 2024 End: August 10, 2024 Spud Grader Relationship Specialty Start Date End Date Unallocated, MD Zuhair Aguero [facility] [place] [address] PCP - General Family Medicine 08/03/24 Spud Grader Relationship Specialty Start Date End Date UnallocatedRey MD [address] [place] [address] PCP - General Family Medicine 08/03/24 Spud Grader Relationship Specialty Start Date End Date Unallocated, [facility] [place] [address] PCP - General Family Medicine 08/03/24 Spud Grader Relationship Specialty Start Date End Date Unallocated, Rey Vo MD [address] [place] [address] PCP - General Family Medicine 08/03/24 Goals [...] BE BASED ON THE PRIMARY CLINICAL RECORDS. [facility] [employer] [facility]. provides no warranty or guarantee of the accuracy or completeness of information in this document.
[2025-01-05 10:31] LABS: Basophils Percent Auto 0.4 % (0.2-2.0); Eosinophils Absolute Auto 0.2 10^3/uL (0.0-0.7); Eosinophils Percent Auto 1.7 % (0.9-7.0); Hematocrit 42.5 % (36.0-48.0); Hemoglobin 14.7 g/dL (12.0-16.0); Immature Granulocytes Abs Auto 0.02 10^3/uL (0.00-0.03); Immature Granulocytes Pct Auto 0.2 % (0.0-0.5); Lymphocytes Absolute Auto 1.4 10^3/uL (1.2-3.8); Lymphocytes Percent Auto 15.4 % (20.5-60.0); Mean Corpuscular HGB Conc 34.6 g/dL (29.9-35.2); Mean Corpuscular Hemoglobin 31.6 pg (26.7-34.0); Mean Corpuscular Volume 91.4 fL (81.0-99.0); Mean Platelet Volume 10.1 fL (9.5-13.5); Monocytes Absolute Auto 0.5 10^3/uL (0.3-0.8); Monocytes Percent Auto 5.4 % (1.7-12.0); Neutrophils Percent Auto 76.9 % (43.0-75.0); Platelet Count 216 10^3/uL (150-450); Red Blood Count 4.65 10^6/uL (4.20-5.40); Red Cell Distribution Width 12.3 % (11.0-15.0); White Blood Count 9.2 10^3/uL (4.0-11.0)
[2025-01-05 10:38] LABS: Estimated Average Glucose 97 mg/dL
[2025-01-05 10:47] LABS: Amphetamine Screen Urine NEGATIVE (NEGATIVE); Barbiturates Screen Urine NEGATIVE (NEGATIVE); Benzodiazepines Screen Urine NEGATIVE (NEGATIVE); Buprenorphine Screen Urine NEGATIVE (NEGATIVE); Cannabinoid Screen Urine NEGATIVE (NEGATIVE); Cocaine Screen Urine NEGATIVE (NEGATIVE); Methadone Screen Urine NEGATIVE (NEGATIVE); Methamphetamines Screen Urine NEGATIVE (NEGATIVE); Opiate Screen Urine NEGATIVE (NEGATIVE); Oxycodone Screen Urine NEGATIVE (NEGATIVE); Phencyclidine Screen Urine NEGATIVE (NEGATIVE); Tricyclic Antidepressant Urine NEGATIVE (NEGATIVE)
[2025-01-05 10:58] LABS: BOX Test Reference Lab UNITY; BOX Test Sent Out UNITY
[2025-01-06 09:08] LABS: HBsAg Screen Negative (Negative); HCV Ab Non Reactive (Non Reactive)
[2025-01-06 11:08] LABS: HIV Ab/p24 Ag Screen Non Reactive (Non Reactive)
[2025-01-06 12:07] LABS: Rubella Antibodies, IgG 1.57 index (Immune >0.99)
[2025-01-06 16:08] LABS: Rapid Plasma Reagin, Quant Non Reactive titer (NonRea<1:1)
== END 2025-01-05 09:27 | disposition home or self-care (01) ==
PROVIDERS: PCP Nurse Practitioner Family; Visit Provider Obstetrics & Gynecology
DX: Z34.01 Encounter for supervision of normal first pregnancy, first trimester (principal); N92.6 Irregular menstruation, unspecified
CPT/HCPCS: 36415; 80307; 83036; 85025; 86592; 86762; 86803; 86850; 86900; 86901; 87086; 87340; 87389

== ENCOUNTER 2025-02-20 20:05 | Outpatient (REF) | payer BC, OTHER, SELFPAY ==
--- OUTSIDE RECORDS SUMMARY | 2024-06-05 04:30 | XMS_ITS ---
Author Organization [facility] [place] Address [address] [place] [address] Care Team Providers Care Town Planner Name Role Phone Jennifer Butts Primary Care [...] 06/05/2024 Encounters Encounter Location Date Provider Diagnosis [facility] [address] [place] [address] 06/05/2024 Jennifer Butts Z33.1 and Wellness examination [...] Amber PIZANO MDOB: [birth year] (24 yo F)Acc No.[id number]:06/05/2024 New Patient Patient: Amber MADERA Provider: Lashawn Butts ([facility]), CONSTRUCTION SPECIALIST :2000 A ge:24 Y S ex:Female Date:06/05/2024 Address:[address] [place] [address] Check In:08:08 AM ESTCheck O ut:08:44 AM [...] old 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 (Check Out) true * Provider: Lashawn Butts ([facility]), CONSTRUCTION SPECIALIST Date: 0 06/05/2024 Generated for Yolisi ng/Famariig/eTransmitting on: 0 02/20/2025 03:31 PM EDT History and Physical Notes * HPI (History of Present Illness) Category Sub-Category Detail Notes Category Not es General OBGYN Michael , have 2 year old 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
--- OUTSIDE RECORDS SUMMARY | 2025-02-20 20:09 | XMS_ITS | Clinical Summary ---
Author Organization [employer] [facility] Address [id number] [place] [address] Care Team Providers Care Repairer Cylinder Heads Name Role Phone Unavailable Primary Care Provider Unavailabl e Social History Tobacco Use Types Packs/Day Years Used Date Smoking Tobacco: Never Assessed Childcare Answer Date Recorded Childcare Unknown 03/06/2019 Employment Answer Date Recorded Employment Unknown 03/06/2019 Comments Unknown Sex and Gender Information Value Date Recorded Sex Assigned at Not on file Legal Sex Female 6:04 PM EDT Gender Identity Not on file Sexual Orientation Not on file Plan of Treatment Not on file Medical Devices Not on file
--- OUTSIDE RECORDS SUMMARY | 2025-02-20 20:09 | XMS_ITS | Encounter Summary ---
Author Organization [facility] Address [address] [place] [address] Care Team Providers Care Sign Maker Name Role Phone Unallocated, Noms Provider Primary Care Provi krissy Encounter Details Date Type Department Care Team (Late st Contact Info) Description 02/20/2025 Bamboo flowsheet [facility] [address] [place] [address] Rossana Ramos PA [address] [place] [address] Dr Maurer, [facility] Social History Tobacco Use Types Packs/Day Years Used Date Smoking Tobacco: Never Alcohol Use Standard Drinks/Week Comments Yes 0 (1 standard drink = 0.6 oz pur e alcohol) Estimated Date of Delivery Comme nts Yes 07/22/2025 Based on last me nstrual period of 10/15/2024 (Exact Date) Sex and Gender Information Value Date Recorded Sex Assigned at Not on file Legal Sex Female 6:47 PM EDT Gender Identity Not on file Sexual Orientation Not on file documented as of this encounter Plan of Treatment Upcoming Encounters Date Type Department Care Team (Late st Contact Info) Description 03/14/2025 10:50 AM EDT Routine [facility] [address] [facility] [place] [address] Jose Rodriguez, DO [address] [place] [place] [address] documented as of this encounter Visit Diagnoses Not on filedocumented in this encounter Care Teams Sign Maker Relationship Specialty Start Date End Date Unallocated, Noms Provider, [place] [address] PCP - General Family Medicine 08/03/24 documented as of this encounter
--- OUTSIDE RECORDS SUMMARY | 2025-02-20 20:09 | XMS_ITS | Patient Health Record ---
Author Organization [facility] in [place] Address [address] [place] [address] Care Team Providers Care Corporate Strategy Associate Name Role Phone Jennifer Butts Primary Care Provider Allergies No Known Allergies Results Component Value Reference Range Notes PREG ([facility]), URINE - IN OFFI CE Reviewed date:07/23/2024 08:22:00 AM Interpretation: Performing Lab: Notes/Report: PREG ([facility]), URINE - IN OFFICE + NEG - NEG Control Present + RUBELLA AB IGG Reviewed date:07/23/2024 08:22:00 AM Interpretation: Performing Lab: Notes/Report: [facility] , Rubella Antibodies, IgG 1.57 Immune > 0.99 index Non-immune <0.90 Equivocal 0.90 - 0.99 Performed at: [facility] Immune >0.99 [address], [place] [phone] Vertical Roll Operator: Andrew Harris PhD, Phone: [phone] Performing Lab: see note - [facility] LB HIV Ab/p24 Ag with Reflex Reviewed date:07/23/2024 08:22:00 AM Interpretation: Performing Lab: Notes/Report: [facility] , HIV Ab/p24 Ag Screen Non Reactive Non Reactive detected. There is no laboratory evidence of HIV infection. HIV-1/HIV-2 antibodies and HIV-1 p24 antigen were NOT Vertical Roll Operator: Andrew Harris PhD, Phone: [phone] HIV Negative Performed at: [facility] [address], [place] [phone] Performing Lab: see note - [facility] LB Rapid Plasma Reagin, Quant Reviewed date:07/23/2024 08:22:00 AM Interpretation: Performing Lab: Notes/Report: [facility] , Rapid Plasma Reagin, Quant Non Reactive NonRea<1:1 titer infection, a reflex cascade that includes both RPR and a treponema-specific assay should be utilized, such as Performed at: [facility] screening and diagnosis of syphilis. This test is Treponema pallidum (Syphilis) Screening [place] (940952) or Vertical Roll Operator: Andrew Harris PhD, Phone: [phone] Please Note: This test does not meet current guidelines for Rapid Plasma Reagin (RPR) Test With Reflex to Quantitative (507239). RPR and Confirmatory Treponema pallidum Antibodies [address] [place] [phone] treated for syphilis infection. To screen for syphilis intended for following treatment response in patients being Performing Lab: see note - [facility] LB HCV Antibody RFX to Quant PC R Reviewed date:07/23/2024 08:22:00 AM Interpretation: Performing Lab: Notes/Report: [facility] , HCV Ab Non Reactive Non Reactive Interpretation: Comment . individual), or other evidence exists to indicate HCV infection. suspected (which may be delayed in an immunocompromised Not infected with HCV unless early or acute infection is Performing Lab: see note - [facility] LB HBsAg Screen Reviewed date:07/23/2024 08:22:00 AM Interpretation: Performing Lab: Notes/Report: [facility] , HBsAg Screen Negative Negative Vertical Roll Operator: Andrew Harris PhD, Phone: [phone] [address], [place] [phone] Performed at: [facility] Performing Lab: see note - [facility] LB Urine Culture, Routine Reviewed date:07/23/2024 08:22:00 AM Interpretation: Performing Lab: Notes/Report: [facility] , Urine Culture, Routine See Below For Report Urine Culture, Routine Urine Culture, Routine Mixed urogenital tami Urine Culture, Routine Urine Culture, Routine 10,000-25,000 col nan forming units per mL Urine Culture, Routine Urine Culture, Routine Performed at: [facility] Urine Culture, Routine Urine Culture, Routine [address], [place] [phone] Urine Culture, Routine Urine Culture, Routine Vertical Roll Operator: Riky Harris PhD, Phone: [phone] Urine Culture, Routine Performing Lab: see note SEE REPORT - Insurance Account Manager Id information not found for OBX-specific oil producer legend LC - [facility] LB CBC AUTO DIFF Reviewed date:08/03/2024 08:30:13 AM Interpretation: Performing Lab: Notes/Report: [facility] , White Blood Count 11.1 4.0-11.0 10 3/uL Red Blood Count 4.61 4.20-5.40 10 6/uL Hemoglobin 14.7 12.0-16.0 g/dL Hematocrit 43.1 36.0-48.0 % Mean Corpuscular Volume 93.5 81.0-99.0 fL Mean Corpuscular Hemoglobin 31.9 26.7-34.0 pg Mean Corpuscular HGB Conc 34.1 29.9-35.2 g/dL Red Cell Distribution Width 11.9 11.0-15.0 % Platelet Count 252 150-450 10 3/uL Mean Platelet Volume 10.2 9.5-13.5 fL Neutrophils Percent Auto 69.9 43.0-75.0 % Lymphocytes Percent Auto 19.3 20.5-60.0 % Monocytes Percent Auto 6.3 1.7-12.0 % Eosinophils Percent Auto 3.7 0.9-7.0 % Basophils Percent Auto 0.6 0.2-2.0 % Immature Granulocytes Pct Auto 0.2 0.0-0.5 % Neutrophils Absolute Auto 7.7 1.4-6.5 10 3/uL Lymphocytes Absolute Auto 2.1 1.2-3.8 10 3/uL Monocytes Absolute Auto 0.7 0.3-0.8 10 3/uL Eosinophils Absolute Auto 0.4 0.0-0.7 10 3/uL Basophils Absolute Auto 0.1 0.0-0.1 10 3/uL Immature Granulocytes Abs Auto 0.02 0.00-0.03 10 3/uL Performing Lab: see note ML - [facility] LB PREG QUANT HCG Reviewed date:08/03/2024 08:30:13 AM Interpretation: Performing Lab: Notes/Report: [facility] , HCG Quantitative 1656 15,000-200,000 6-8 WEEKS 10,000-100,000 2-3 MONTHS 10,000-100,000 5-6 WEEKS 1,000-50,000 4-5 WEEKS 100-5,000 2-3 WEEKS 50-500 1-2 WEEKS 5-50 0.2-1 WEEK 500-10,000 3-4 WEEKS Performing Lab: see note ML - [facility] PROF 14(COMP METB) Reviewed date:08/03/2024 08:30:13 AM Interpretation: Performing Lab: Notes/Report: [facility] , Sodium 140 136-145 mmol/L Potassium 3.4 3.5-5.1 mmol/L Chloride 105 98-107 mmol/L Carbon Dioxide 23.2 21.0-32.0 mmol/L Anion Gap 15.2 Glucose 96 74-106 mg/dL Blood Urea Nitrogen 11.0 7.0-18.0 mg/dL Creatinine 0.61 0.55-1.02 mg/dL Estimated GFR ( Ashley >60 >=60 mL/min/1.73m 2 Estimated GFR (Non- Hortencia >60 >=60 mL/min/1.73m 2 BUN Creatinine Ratio 18.0 Calcium 9.1 8.5-10.1 mg/dL Bilirubin Total 0.2 0.2-1.0 mg/dL Aspartate Amino Transferase 17 15-37 U/L Alanine Aminotransferase 18 14-59 U/L Alkaline Phosphatase 74 46-116 U/L Total Protein 7.6 6.4-8.2 g/dL Albumin Level 3.5 3.4-5.0 g/dL Globulin 4.1 Albumin Globulin Ratio 0.9 Performing Lab: see note ML - [facility] US OB transvaginal Reviewed date:08/03/2024 08:30:13 AM Interpretation: Performing Lab: Notes/Report: Source Facility: [facility] [place] [address] [place] [address] Ultrasound Report Signed Patient: VIMAL PIZANO MR#: [id number] : 2000 Acct:[id number] Age/Sex: 24 / F ADM Date: 08/02/24 Loc: ER Attending Dr: Ordering Physician: Kishan Motta Date of Service: 08/02/24 Procedure(s): US OB transvaginal Accession Number(s): [id number] cc: JENNIFER BUTTS ; Kishan Marker The [address] [id number] Patient Name: VIMAL PIZANO MRN: [id number] date: 2000 Sex: F Assigned Patient Location: ER Current Patient Location: ER Accession/Order Number: [id number] Exam Date: 08/02/2024 19:17 Report Date: 08/02/2024 21:24 At the request of: KISHAN MOTTA Procedure: US OB transvaginal EXAM: US OB transvaginal HISTORY: R/O miscarriage COMPARISON: 06/29/2024 TECHNIQUE: Transvaginal real-time grayscale and color Doppler imaging with pulsed duplex sonography was performed. FINDINGS: UTERUS: Gestational sac, yolk sac and pole with crown-rump length measurement of 1.64 centimeters which corresponds to a sonographic gestational age of 8 weeks and days. heart rate is not detected. The cervix is closed. OVARIES: Bilateral ovaries are not visualized. MISCELLANEOUS: No significant free fluid. US/US OB transvaginal IMPRESSION: Findings diagnostic for failure per SRU criteria with crown-rump length measurement of 1.64 centimeters without detected heart rate. Electronically authenticated by: VICKI PASCUAL Date: 08/02/2024 21:24 Dictated By: Vicki Pascual M.D. Signed By: 08/02/242126 DD/ 23 TD/TT: Hvac Sales Engineer: [place] [address] Ultrasound Report Signed Patient: VIMAL PIZANO MR#: [id number] : 2000 Acct:[id number] Age/Sex: 24 / F ADM Date: 08/02/24 Loc: ER Attending Dr: Ordering Physician: Kishan Motta Date of Service: 08/02/24 Procedure(s): US OB transvaginal Accession Number(s): [id number] cc: JENNIFER BUTTS ; Kishan Marker The [address] [id number] Patient Name: VIMAL PIZANO MRN: [id number] date: 2000 Sex: F Assigned Patient Location: ER Current Patient Location: ER Accession/Order Number: [id number] Exam Date: 19:17 Report Date: 08/02/2024 21:24 At the request of: KISHAN MARKER Procedure: US OB transvaginal EXAM: US OB transvaginal HISTORY: R/O miscarriage COMPARISON: 06/29/2024 TECHNIQUE: Transvaginal real-time grayscale and color Doppler imaging with pulsed duplex sonography was performed. FINDINGS: UTERUS: Gestational sac, yolk sac and pole with crown-rump length measurement of 1.64 centimeters which corresponds to a sonographic gestational age of 8 weeks and days. heart rate is not detected. The cervix is closed. OVARIES: Bilateral ovaries are not visualized. MISCELLANEOUS: No significant free fluid. US/US OB transvaginal IMPRESSION: Findings diagnostic for failure per SRU criteria with crown-rump length measurement o f 1.64 centimeters without detected heart rate. Electronically authenticated by: VICKI PASCUAL Date: 08/02/2024 21:24 Dictated By: Vicki Pascual M.D. Signed By: 08/02/242126 DD/ 23 TD/TT: Hvac Sales Engineer: CBC AUTO DIFF Reviewed date:08/10/2024 08:58:56 AM Interpretation: Performing Lab: Notes/Report: [facility] , White Blood Count 8.9 4.0-11.0 10 3/uL Red Blood Count 4.67 4.20-5.40 10 6/uL Hemoglobin 14.8 12.0-16.0 g/dL Hematocrit 43.8 36.0-48.0 % Mean Corpuscular Volume 93.8 81.0-99.0 fL Mean Corpuscular Hemoglobin 31.7 26.7-34.0 pg Mean Corpuscular HGB Conc 33.8 29.9-35.2 g/dL Red Cell Distribution Width 11.9 11.0-15.0 % Platelet Count 236 150-450 10 3/uL Mean Platelet Volume 10.0 9.5-13.5 fL Neutrophils Percent Auto 65.7 43.0-75.0 % Lymphocytes Percent Auto 22.1 20.5-60.0 % Monocytes Percent Auto 5.3 1.7-12.0 % Eosinophils Percent Auto 6.2 0.9-7.0 % Basophils Percent Auto 0.5 0.2-2.0 % Immature Granulocytes Pct Auto 0.2 0.0-0.5 % Neutrophils Absolute Auto 5.8 1.4-6.5 10 3/uL Lymphocytes Absolute Auto 2.0 1.2-3.8 10 3/uL Monocytes Absolute Auto 0.5 0.3-0.8 10 3/uL Eosinophils Absolute Auto 0.6 0.0-0.7 10 3/uL Basophils Absolute Auto 0.0 0.0-0.1 10 3/uL Immature Granulocytes Abs Auto 0.02 0.00-0.03 10 3/uL Performing Lab: see note ML - [facility] PREG QUANT HCG Reviewed date:11/20/2024 01:38:35 PM Interpretation: Performing Lab: Notes/Report: [facility] Quantitative 6254 10,000-100,000 2-3 MONTHS 5-50 0.2-1 WEEK 500-10,000 3-4 WEEKS 100-5,000 2-3 WEEKS 15,000-200,000 6-8 WEEKS 10,000-100,000 5-6 WEEKS 50-500 1-2 WEEKS 1,000-50,000 4-5 WEEKS Performing Lab: see note ML - [facility] LB PREG QUANT HCG Reviewed date:11/22/2024 08:59:16 AM Interpretation: Performing Lab: Notes/Report: [facility] Quantitative 25482 5-50 0.2-1 WEEK 100-5,000 2-3 WEEKS 1,000-50,000 4-5 WEEKS 10,000-100,000 2-3 MONTHS 500-10,000 3-4 WEEKS 15,000-200,000 6-8 WEEKS 10,000-100,000 5-6 WEEKS 50-500 1-2 WEEKS Performing Lab: see note ML - [facility] CBC AUTO DIFF Reviewed date:01/07/2025 01:05:16 PM Interpretation: Performing Lab: Notes/Report: [facility] , White Blood Count 9.2 4.0-11.0 10 3/uL Red Blood Count 4.65 4.20-5.40 10 6/uL Hemoglobin 14.7 12.0-16.0 g/dL Hematocrit 42.5 36.0-48.0 % Mean Corpuscular Volume 91.4 81.0-99.0 fL Mean Corpuscular Hemoglobin 31.6 26.7-34.0 pg Mean Corpuscular HGB Conc 34.6 29.9-35.2 g/dL Red Cell Distribution Width 12.3 11.0-15.0 % Platelet Count 216 150-450 10 3/uL Mean Platelet Volume 10.1 9.5-13.5 fL Neutrophils Percent Auto 76.9 43.0-75.0 % Lymphocytes Percent Auto 15.4 20.5-60.0 % Monocytes Percent Auto 5.4 1.7-12.0 % Eosinophils Percent Auto 1.7 0.9-7.0 % Basophils Percent Auto 0.4 0.2-2.0 % Immature Granulocytes Pct Auto 0.2 0.0-0.5 % Neutrophils Absolute Auto 7.0 1.4-6.5 10 3/uL Lymphocytes Absolute Auto 1.4 1.2-3.8 10 3/uL Monocytes Absolute Auto 0.5 0.3-0.8 10 3/uL Eosinophils Absolute Auto 0.2 0.0-0.7 10 3/uL Basophils Absolute Auto 0.0 0.0-0.1 10 3/uL Immature Granulocytes Abs Auto 0.02 0.00-0.03 10 3/uL Performing Lab: see note ML - [facility] LB GLYCOHEMOGLOBIN A1C Reviewed date:01/07/2025 01:05:16 PM Interpretation: Performing Lab: Notes/Report: [facility] , Glycohemoglobin A1C 5.0 4.5-6.2 % > 7.0 ADA RECOMMENDED LIMIT 4.0 - 6.0 ADA THERAPEUTIC TARGET < 7.0 ACTION SUGGESTED Estimated Average Glucose 97 Performing Lab: see note ML - [facility] LB Type and Screen Reviewed date:01/07/2025 01:05:16 PM Interpretation: Performing Lab: Notes/Report: [facility] , Blood Type A Positive Antibody Screen NEGATIVE Rapid Plasma Reagin, Quant Reviewed date:01/07/2025 01:05:16 PM Interpretation: Performing Lab: Notes/Report: [facility] , Rapid Plasma Reagin, Quant Non Reactive NonRea<1:1 titer Treponema pallidum (Syphilis) Screening [place] (649393) or treated for syphilis infection. To screen for syphilis Vertical Roll Operator: Andrew Harris PhD, Phone: [phone] treponema-specific assay should be utilized, such as RPR and Confirmatory Treponema pallidum Antibodies (550492). Rapid Plasma Reagin (RPR) Test With Reflex to Quantitative Performed at: [facility] Please Note: This test does not meet current guidelines for infection, a reflex cascade that includes both RPR and a [address] [place] [phone] screening and diagnosis of syphilis. This test is intended for following treatment response in patients being Performing Lab: see note [facility] LB HBsAg Screen Reviewed date:01/07/2025 01:05:16 PM Interpretation: Performing Lab: Notes/Report: [facility] , HBsAg Screen Negative Negative Vertical Roll Operator: Andrew Harris PhD, Phone: [phone] Performed at: [address] [id number] Performing Lab: see note - [facility] LB Urine Culture, Routine Reviewed date:01/07/2025 01:05:16 PM Interpretation: Performing Lab: Notes/Report: [facility] , Urine Culture, Routine See Below For Report Urine Culture, Routine Urine Culture, Routine Mixed urogenital tami Urine Culture, Routine Urine Culture, Routine 50,000-100,000 co lony forming units per mL Urine Culture, Routine Urine Culture, Routine Performed at: [facility] Urine Culture, Routine Urine Culture, Routine [address] [place] [phone] Urine Culture, Routine Urine Culture, Routine Vertical Roll Operator: Riky Harris PhD, Phone: [phone] Urine Culture, Routine Performing Lab: see note SEE REPORT - Insurance Account Manager Id information not found for OBX-specific oil producer legend - [facility] LB PREG QUANT HCG Reviewed date:08/20/2024 11:36:34 AM Interpretation: Performing Lab: Notes/Report: [facility] , HCG Quantitative 6 5-50 0.2-1 WEEK 500-10,000 3-4 WEEKS 15,000-200,000 6-8 WEEKS 10,000-100,000 2-3 MONTHS 1,000-50,000 4-5 WEEKS 50-500 1-2 WEEKS 100-5,000 2-3 WEEKS 10,000-100,000 5-6 WEEKS Performing Lab: see note ML - [facility] US OB transvaginal Reviewed date:08/10/2024 08:58:56 AM Interpretation: Performing Lab: Notes/Report: Source Facility: [place] [address] Ultrasound Report Signed Patient: VIMAL PIZANO MR#: [id number] : 2000 Acct:[id number] Age/Sex: 24 / F ADM Date: 08/10/24 Loc: SURGOUT Attending Dr: Mackenzie Rodriguez D.O. Ordering Physician: Mackenzie Rodriguez D.O. Date of Service: 08/10/24 Procedure(s): US OB transvaginal Accession Number(s): [id number] cc: JENNIFER BUTTS ; Mackenzie Rodriguez D.O. [place] [address] Patient Name: VIMAL PIZANO MRN: [id number] date: 2000 Sex: F Assigned Patient Location: [facility] Current Patient Location: [facility] Accession/Order Number: [id number] Exam Date: 08/10/2024 08:10 Report Date: 08/10/2024 08:44 At the request of: MACKENZIE RODRIGUEZ Procedure: US OB transvaginal EXAMINATION: US OB transvaginal HISTORY: preop for DC for missed COMPARISON: Ultrasound OB transvaginal 08/02/2024, 06/29/2024 FINDINGS: GESTATIONAL SAC: Present YOLK SAC: Present POLE: Present CARDIAC: Absent UTERUS: Normal size and appearance. OVARIES: Right: Not evaluated. Left: Not evaluated. OTHER: None. AGE BY LMP: 13 weeks 1 day LYDIA BY LMP: 02/14/2025 AGE BY US CRL: 6 weeks 3 days LYDIA BY US CRL: 04/02/2025 US/US OB transvaginal IMPRESSION: 1. Intrauterine measuring 6 weeks 3 days today's ultrasound; no detectable heartbeat. ( pole length was consistent with 8 weeks 0 days on 08/02/2024 and 7 weeks 1 day on 06/29/2024.) Electronically authenticated by: LAVON HERRERA Date: 08/10/2024 08:44 Dictated By: Lavon Herrera M.D. Signed By: 08/10/24846 DD/ 3 TD/TT: Hvac Sales Engineer: [place] [address] Ultrasound Report Signed Patient: VIMAL PIZANO MR#: [id number] : 2000 Acct:[id number] Age/Sex: 24 / F ADM Date: 08/10/24 [facility]: Mackenzie Rodriguez D.O. Ordering Physician: Mackenzie Rodriguez D.O. Date of Service: 08/10/24 Procedure(s): US OB transvaginal Accession Number(s): [id number] cc: JENNIFER BUTTS ; Mackenzie Rodriguez D.O. [place] [address] Patient Name: VIMAL PIZANO MRN: [id number] date: 2000 Sex: F Assigned Patient Location: [facility] Current Patient Location: [facility] Accession/Order Number: [id number] Exam Date: 08:10 Report Date: 08/10/2024 08:44 At the request of: MACKENZIE RODRIGUEZ Procedure: US OB transvaginal EXAMINATION: US OB transvaginal HISTORY: preop for D C for missed COMPARISON: Ultrasou nd OB transvaginal 08/02/2024, 06/29/2024 FINDINGS: GESTATIONAL SAC: Present YOLK SAC: Present POLE: Present CARDIAC: Absent UTERUS: Normal size and appearance. OVARIES: Right: Not evaluated. Left: Not evaluated. OTHER: None. AGE BY LMP: 13 weeks 1 day LYDIA BY LMP: 02/14/2025 AGE BY US CRL: 6 wee ks 3 days LYDIA BY US CRL: 04/02/2025 US/US OB transvaginal IMPRESSION: 1. Intrauterine measuring 6 weeks 3 days today's ultrasound; no detectable heartbeat . ( pole length was consistent with 8 weeks 0 days on 08/02/2024 and 7 week s 1 day on 06/29/2024.) Electronically authenticated by: LAVON HERRERA Date: 08/10/2024 08:44 Dictated By: Lavon Herrera M.D. Signed By: 08/10/2447 DD/ 3 TD/TT: Hvac Sales Engineer: PREG QUANT HCG Reviewed date:08/10/2024 08:58:56 AM Interpretation: Performing Lab: Notes/Report: [facility] , HCG Quantitative 240 50-500 1-2 WEEKS 1,000-50,000 4-5 WEEKS 15,000-200,000 6-8 WEEKS 10,000-100,000 2-3 MONTHS 100-5,000 2-3 WEEKS 500-10,000 3-4 WEEKS 5-50 0.2-1 WEEK 10,000-100,000 5-6 WEEKS Performing Lab: see note ML - [facility] LB Box Test Reviewed date:07/23/2024 08:22:00 AM Interpretation: Performing Lab: Notes/Report: [facility] , BOX Test Sent Out UNITY BOX Test Reference Lab [facility] Test Date Sent 07/21/24 Performing Lab: see note ML - [facility] LB Type and Screen Reviewed date:07/23/2024 08:22:00 AM Interpretation: Performing Lab: Notes/Report: [facility] , Blood Type A Positive Antibody Screen NEGATIVE GLYCOHEMOGLOBIN A1C Reviewed date:07/23/2024 08:22:00 AM Interpretation: Performing Lab: Notes/Report: [facility] , Glycohemoglobin A1C 4.9 4.5-6.2 % > 7.0 ACTION SUGGESTED ADA RECOMMENDED LIMIT 4.0 - 6.0 ADA THERAPEUTIC TARGET < 7.0 Estimated Average Glucose 94 Performing Lab: see note ML - [facility] LB DRUG SCREEN RAPID (URINE) Reviewed date:07/23/2024 08:22:00 AM Interpretation: Performing Lab: Notes/Report: REEFLEX IF POSITIVE [facility] , Cannabinoid Screen Urine NEGATIVE NEGATIVE Phencyclidine Screen Urine NEGATIVE NEGATIVE Cocaine Screen Urine NEGATIVE NEGATIVE Methamphetamines Screen Urine NEGATIVE NEGATIVE Opiate Screen Urine NEGATIVE NEGATIVE Amphetamine Screen Urine NEGATIVE NEGATIVE Benzodiazepines Screen Urine NEGATIVE NEGATIVE Tricyclic Antidepressant Urine NEGATIVE NEGATIVE Methadone Screen Urine NEGATIVE NEGATIVE Barbiturates Screen Urine NEGATIVE NEGATIVE Oxycodone Screen Urine NEGATIVE NEGATIVE Buprenorphine Screen Urine NEGATIVE NEGATIVE PCP (Phencyclidine): 25 ng/mL MTD (Methadone): 200 ng/mL FOLLOWS: ALEXA (Cocaine): 150 ng/mL BUP (Buprenorphine): 10 ng/mL DRUG CLASS TEST SYSTEM CUT-OFF CONCENTRATIONS ARE BAR (Barbiturates): 200 ng/mL TCA (Trycyclic Antidepressants): 300 ng/mL AMP (Amphetamine): 500 ng/mL OXY (Oxycodone): 100 ng/mL THC (Cannabinoids): 50 ng/mL OPI (Opiates): 100 ng/mL BZO (Benzodiazepines): 150 ng/mL mAMP (Methamphetamine): 500 ng/mL Performing Lab: see note ML - [facility] LB CBC AUTO DIFF Reviewed date:07/23/2024 08:22:00 AM Interpretation: Performing Lab: Notes/Report: [facility] , White Blood Count 10.6 4.0-11.0 10 3/uL Red Blood Count 4.82 4.20-5.40 10 6/uL Hemoglobin 15.3 12.0-16.0 g/dL Hematocrit 44.7 36.0-48.0 % Mean Corpuscular Volume 92.7 81.0-99.0 fL Mean Corpuscular Hemoglobin 31.7 26.7-34.0 pg Mean Corpuscular HGB Conc 34.2 29.9-35.2 g/dL Red Cell Distribution Width 11.9 11.0-15.0 % Platelet Count 263 150-450 10 3/uL Mean Platelet Volume 10.0 9.5-13.5 fL Neutrophils Percent Auto 77.8 43.0-75.0 % Lymphocytes Percent Auto 14.9 20.5-60.0 % Monocytes Percent Auto 3.7 1.7-12.0 % Eosinophils Percent Auto 2.8 0.9-7.0 % Basophils Percent Auto 0.5 0.2-2.0 % Immature Granulocytes Pct Auto 0.3 0.0-0.5 % Neutrophils Absolute Auto 8.2 1.4-6.5 10 3/uL Lymphocytes Absolute Auto 1.6 1.2-3.8 10 3/uL Monocytes Absolute Auto 0.4 0.3-0.8 10 3/uL Eosinophils Absolute Auto 0.3 0.0-0.7 10 3/uL Basophils Absolute Auto 0.1 0.0-0.1 10 3/uL Immature Granulocytes Abs Auto 0.03 0.00-0.03 10 3/uL Performing Lab: see note - [facility] Box Test Reviewed date:01/07/2025 01:05:16 PM Interpretation: Performing Lab: Notes/Report: [facility] , BOX Test Sent Out [employer] BOX Test Reference Lab [facility] Test Date Sent 01-05-25 Performing Lab: see note [facility] DRUG SCREEN RAPID (URINE) Reviewed date:01/07/2025 01:05:16 PM Interpretation: Performing Lab: Notes/Report: [facility] , Cannabinoid Screen Urine NEGATIVE NEGATIVE Phencyclidine Screen Urine NEGATIVE NEGATIVE Cocaine Screen Urine NEGATIVE NEGATIVE Methamphetamines Screen Urine NEGATIVE NEGATIVE Opiate Screen Urine NEGATIVE NEGATIVE Amphetamine Screen Urine NEGATIVE NEGATIVE Benzodiazepines Screen Urine NEGATIVE NEGATIVE Tricyclic Antidepressant Urine NEGATIVE NEGATIVE Methadone Screen Urine NEGATIVE NEGATIVE Barbiturates Screen Urine NEGATIVE NEGATIVE Oxycodone Screen Urine NEGATIVE NEGATIVE Buprenorphine Screen Urine NEGATIVE NEGATIVE OPI (Opiates): 100 ng/mL FOLLOWS: MTD (Methadone): 200 ng/mL AMP (Amphetamine): 500 ng/mL TCA (Trycyclic Antidepressants): 300 ng/mL BUP (Buprenorphine): 10 ng/mL DRUG CLASS TEST SYSTEM CUT-OFF CONCENTRATIONS ARE OXY (Oxycodone): 100 ng/mL PCP (Phencyclidine): 25 ng/mL BAR (Barbiturates): 200 ng/mL THC (Cannabinoids): 50 ng/mL mAMP (Methamphetamine): 500 ng/mL BZO (Benzodiazepines): 150 ng/mL ALEXA (Cocaine): 150 ng/mL Performing Lab: see note - [facility] HCV Antibody RFX to Quant PC R Reviewed date:01/07/2025 01:05:16 PM Interpretation: Performing Lab: Notes/Report: [facility] , HCV Ab Non Reactive Non Reactive Interpretation: Comment . suspected (which may be delayed in an immunocompromised Performed at: - [facility] [address] [id number] Vertical Roll Operator: Andrew Harris PhD, Phone: [phone] Not infected with HCV unless early or acute infection is infection. individual), or other evidence exists to indicate HCV Performing Lab: see note [facility] LB HIV Ab/p24 Ag with Reflex Reviewed date:01/07/2025 01:05:16 PM Interpretation: Performing Lab: Notes/Report: [facility] , HIV Ab/p24 Ag Screen Non Reactive Non Reactive Performed at: [facility] HIV-1/HIV-2 antibodies and HIV-1 p24 antigen were NOT Vertical Roll Operator: Andrew Harris PhD, Phone: [phone] HIV Negative [address] [place] [address] [id number] detected. There is no laboratory evidence of HIV infection. Performing Lab: see note [facility] LB RUBELLA AB IGG Reviewed date:01/07/2025 01:05:16 PM Interpretation: Performing Lab: Notes/Report: [facility] , Rubella Antibodies, IgG 1.57 Immune > 0.99 index Performed at: [facility] Immune >0.99 Equivocal 0.90 - 0.[address] [place] [address] [phone] Non-immune <0.90 Vertical Roll Operator: Andrew Harris PhD, Phone: [phone] Performing Lab: see note [facility] Reason For Referral No Information Medications Medication SIG (Take, Route, Fr equency, [...] 0 Interpretation Negative Vital Signs Blood pressure diastolic 70 mm Hg 06/05/2024 Height 63 in 06/05/2024 Blood pressure systolic 112 mm Hg 06/05/2024 Weight 137.6 lbs 06/05/2024 BMI 24.37 kg/m2 06/05/2024 Encounters Encounter Location Date Provider Diagnosis [address] [address] 06/05/2024 Jennifer Butts Z33.1 and Wellness examination Z00.00 Assessments Encounter Date Diagnosis (ICD Code) Assessment Notes Treatment Notes Treatment Clinical Notes Section Notes 06/05/2024 (ICD-10 - Z33.1) 06/05/2024 Wellness examination (ICD-10 - Z00.00) ROS done exam done medical hx reviewed here to establish no acute concerns fu Michael, Plan Of Treatment No Information Insurance Providers Payer Name Payer Address Payer Phone Subscriber Number Group Number Insured Name Patient Relationship to Insured Coverage Start Date Coverage End Date AN[employer]M ACCESS PPO PLUS LOCAL PLAN [address] [place] [address] [id number] Vimal Pizano Self - patient is the insured [employer] [employer] [address] [place] [address] [id number] Vimal Pizano Self - patient is the insured Medical (General) History Medical History History ICD Code lead poisoning Surgical History Surgery Date(Month/Year) ear tubes
--- OUTSIDE RECORDS SUMMARY | 2025-02-20 20:09 | XMS_ITS | Encounter Summary ---
Author Organization [facility] Address [address] [place] [address] Care Team Providers Care Nightclub Manager Name Role Phone Vaishali Zapata MD Primary Care Provider Bipin cheng Unallocated, Noms Provider Primary Care Provi krissy Encounter Details Date Type Department Care Team (Late st Contact Info) Description 08/02/2024 Abstract [facility] BCP OB [address] [place] [address] Jose Rodriguez DO [address], [facility]11 Social History Tobacco Use Types Packs/Day Years Used Date Smoking Tobacco: Never Alcohol Use Standard Drinks/Week Comments Yes 0 (1 standard drink = 0.6 oz pur e alcohol) Comments Yes Sex and Gender Information Value Date Recorded Sex Assigned at Not on file Legal Sex Female 6:47 PM EDT Gender Identity Not on file Sexual Orientation Not on file documented as of this encounter Plan of Treatment Upcoming Encounters Date Type Department Care Team (Late st Contact Info) Description 03/14/2025 10:50 AM EDT Routine [facility] BCP OB [address] [place] [address] Jose Rodriguez DO [address], [facility]11 documented as of this encounter Visit Diagnoses Not on filedocumented in this encounter Care Teams Nightclub Manager Relationship Specialty Start Date End Date Vaishali Zapata MD [address] [address] PCP - General Family Medicine 02/04/23 08/02/24 Unallocated, Noms Provider, [address] [place] [address] PCP - General Family Medicine 08/03/24 documented as of this encounter
--- OUTSIDE RECORDS SUMMARY | 2025-02-20 20:09 | XMS_ITS | Clinical Summary ---
Author Organization [facility] Address [address] [place] [address] Care Team Providers Care Device Sales Consultant Name Role Phone Unallocated, Noms Provider Primary Care Provi krissy Allergies No known active allergies Medications Vit-DSS-Fe Fum-FA ( 19) 29-1 MG tablet Take 1 each by mouth 1 (one) time each day at the same time Active loratadine (Claritin) 10 MG tablet Take 10 mg by mouth Daily Active progesterone (Endometrin) 100 MG vaginal insert Insert 100 mg into the vagina in the morning and 100 mg before bedtime. Active Encounters Date Type Department Care Team Description 02/20/2025 3:40 PM EDT Routine [facility] OB [address] [facility] [place] [address] Rossana Ramos PA Screening, , for anatomic survey; Well woman exam with routine gynecological exam; STD exposure; Second trimester ; 18 weeks gestation of ; Urinary frequency 02/20/2025 Bamboo flowsheet [facility] OB [address] [place] [address] Rossana Ramos PA 01/14/2025 3:40 PM EDT Routine [facility] OB [address] [place] [address] Jose Rodriguez DO 13 weeks gestation of ; Second trimester 01/14/2025 Bamboo flowsheet [facility] OB [address] [place] [address] Jose Rodriguez DO 01/05/2025 Clinisync Result Encounter [facility] External Department Unsolicited Jose Rodriguez, 12/14/2024 9:00 AM EDT Initial [facility] OB [facility] [place] [address] GA: [id number] 12/14/2024 8:30 AM EDT Ancillary Procedure [facility] [address] [place] [address] Missed menses 12/13/2024 Travel from Last 3 Months Family History Medical History Relation Name Comments No Known Problems Brother Rheum arthritis Father No Known Problems Sister Relation Name Status Comments Brother Daughter Alive Father Alive Mother Alive Sister Social History Tobacco Use Types Packs/Day Years Used Date Smoking Tobacco: Never Tobacco Cessation:Counseling Given: Not Answered Alcohol Use Standard Drinks/Week Comments Yes 0 (1 standard drink = 0.6 oz pur e alcohol) Estimated Date of Delivery Comme nts Yes 07/22/2025 Based on last me nstrual period of 10/15/2024 (Exact Date) Sex and Gender Information Value Date Recorded Sex Assigned at Not on file Legal Sex Female 6:47 PM EDT Gender Identity Not on file Sexual Orientation Not on file Last Filed Vital Signs Vital Sign Reading Time Taken Comments Blood Pressure 110/82 02/20/2025 4:08 PM EDT Pulse - - Temperature - - Respiratory Rate - - Oxygen Saturation - - Inhaled Oxygen Concentration - - Weight 73.8 kg (162 lb 12 oz) 02/20/2025 4:08 PM EDT Height 160 cm (5' 3 ) 01/06/2023 12:00 PM EDT Body Mass Index 28.83 01/06/2023 12:00 PM EDT Plan of Treatment Upcoming Encounters Date Type Department Care Team (Late st Contact Info) Description 03/14/2025 10:50 AM EDT Routine [facility] OB [address] [place] [address] Jose Rodriguez, [address] [place] [id number] Health Maintenance Due Date Last Done Comments Influenza Vaccine (Season Ended) 2025 08/28/20 03, 07/26/2003 Procedures Procedure Name Priority Date/Time Associated Diagnosis Comments POCT URINALYSIS DIPSTICK Routine 02/20/2025 4:18 PM EDT 18 weeks gestation of POCT URINALYSIS DIPSTICK Routine 01/14/2025 3:50 PM EDT 13 weeks gestation of Second trimester HBSAG SCREEN Routine 01/05/2025 10:06 AM EDT RAPID PLASMA REAGIN, QUANT Routine 01/05/2025 10:06 AM EDT HCV ANTIBODY RFX TO QUANT PCR Routine 01/05/2025 10:06 AM EDT ALL RUBELLA IGG AB Routine 01/05/2025 10 :06 AM EDT HIV AB/P24 AG WITH REFLEX Routine 01/05/2025 10:06 AM EDT ALL TYPE AND SCREEN Routine 01/05/2025 1 0:06 AM EDT BOX TEST Routine 01/05/2025 10:06 AM EDT MLR HEMOGLOBIN A1C Routine 01/05/2025 10 :06 AM EDT ALL CBC WITH AUTO DIFF Routine 01/05/2025 10:06 AM EDT [facility] DRUG SCREEN RAPID (URINE) Routine 01/05/2025 9:38 AM EDT POCT URINALYSIS DIPSTICK Routine 12/14/2024 9:45 AM EDT Missed menses POCT , URINE Routine 12/14/2024 9:45 AM EDT Missed menses US OB TRANSVAGINAL Routine 12/14/2024 8: 51 AM EDT Missed menses from Last 3 Months Results * (ABNORMAL) POCT urinalysis dipstick manually resulted (02/20/2025 4:18 PM EDT) Only the most recent of3 resultswithin the time period is included. Pathologist [facility] Color, UA Yellow Clarity, UA Clear Glucose, UA Negative Negative - 2000(110) ++++ mg/dL Bilirubin, UA Negative Negative - 4(70) +++ mg/dL Ketones, UA Negative Negative - 160(16) ++++ mg/dL Spec Grav, UA 1.010 1 - 1.03 Blood, UA Negative Negative - 50 Jason/mcL pH, UA 7.0 5 - 9 Protein, UA Negative Negative - 2000(20) ++++ mg/dL Urobilinogen, UA 0.2 0.2 - 12 mg/dL Leukocytes, UA Negative Negative - 500+++ Carlos/mcL Nitrite, UA Negative Negative - Positive Urine 02/20/2025 4:18 PM EDT Rossana BISWAS POINT OF CARE TEST ENTER/EDIT OR DERABLES Final Result * BOX TEST (01/05/2025 10:06 AM EDT) Pathologist [facility] BOX TEST SENT OUT [facility] [address] [facility] [address] 01-05-25 [facility] 01/05/2025 10:0 6 AM EDT 01/05/2025 10:22 AM EDT Narrative DOMINGA - 01/05/2025 10:58 AM EDT [facility] Jose Rodriguez DO LAB BLOOD ORDERABLES Final Resul t [facility] * HBSAG SCREEN (01/05/2025 10:06 AM EDT) Pathologist [facility] HBSAG SCREEN Negative Negative [facility] Comment: Performed at: [address] [id number] Superintendent Quarry: Andrew Harirs PhD, Phone: [phone] 01/05/2025 10:0 6 AM EDT 01/05/2025 10:22 AM EDT Narrative CLINISYNC - 01/06/2025 4:08 PM EDT Jose Michael DO LAB BLOOD ORDERABLES Final Resul t Performing Organization Address [facility]/ZIP Co de Phone Number [facility] * RAPID PLASMA REAGIN, QUANT (01/05/2025 10:06 AM EDT) [facility] RAPID PLASMA REAGIN, QUANT Non Reactive NonRea<1: 1 titer [facility] Comment: Please Note: This test does not meet current guidelines for screening and diagnosis of syphilis. This test is intended for following treatment response in patients being treated for syphilis infection. To screen for syphilis infection, a reflex cascade that includes both RPR and a treponema-specific assay should be utilized, such as Treponema pallidum (Syphilis) Screening Ronan (770075) or Rapid Plasma Reagin (RPR) Test With Reflex to Quantitative RPR and Confirmatory Treponema pallidum Antibodies (882588). Performed at: [address] [id number] Superintendent Quarry: Andrew Harris PhD, Phone: [phone] 01/05/2025 10:0 6 AM EDT 01/05/2025 10:22 AM EDT Narrative CLINISYMD - 01/06/2025 4:08 PM EDT Crowdnetico DO LAB BLOOD ORDERABLES Final Resul t [facility] * HIV AB/P24 AG WITH REFLEX (01/05/2025 10:06 AM EDT) [facility] HIV AB/P24 AG SCREEN Non Reactive Non Reactive [facility] Comment: HIV-1/HIV-2 antibodies and HIV-1 p24 antigen were NOT detected. There is no laboratory evidence of HIV infection. HIV Negative Performed at: [address] [id number] Superintendent Quarry: Andrew Harris PhD, Phone: [phone] 01/05/2025 10:0 6 AM EDT 01/05/2025 10:22 AM EDT Narrative CLINISYNC - 01/06/2025 11:08 AM EDT [employer] LAB BLOOD ORDERABLES Final Resul t Performing Organization Address [facility] de Phone Number [facility] TB * HCV ANTIBODY RFX TO QUANT PCR (01/05/2025 10:06 AM EDT) Pathologist [facility] HCV AB Non Reactive Non Reactive [facility] INTERPRETATION: Comment . [facility] Comment: Not infected with HCV unless early or acute infection is suspected (which may be delayed in an immunocompromised individual), or other evidence exists to indicate HCV infection. Performed at: [address] [id number] Superintendent Quarry: Andrew Harris PhD, Phone: [phone] 01/05/2025 10:0 6 AM EDT 01/05/2025 10:22 AM EDT Narrative CLINISYMD - 01/06/2025 12:07 PM EDT [facility] Michael DO LAB BLOOD ORDERABLES Final Resul t Performing Organization Address [facility] Co de Phone Number [facility] * MLR HEMOGLOBIN A1C (01/05/2025 10:06 AM EDT) Pathologist [facility] GLYCOHEMOGLOBIN A1C 5.0 4.5 - 6.2 % [facility] Comment: ADA RECOMMENDED LIMIT 4.0 - 6.0 ADA THERAPEUTIC TARGET < 7.0 ACTION SUGGESTED > 7.0 ESTIMATED AVERAGE GLUCOSE 97 mg/dL [facility] 01/05/2025 10:0 6 AM EDT 01/05/2025 10:22 AM EDT Narrative CLINISYNC - 01/05/2025 10:41 AM EDT Jose Michael DO CLINISYNC Final Result Performing Organization Address [facility]/ZIP Co de Phone Number [facility] * ALL TYPE AND SCREEN (01/05/2025 10:06 AM EDT) Pathologist [facility] BLOOD TYPE A Positive [facility] ANTIBODY SCREEN NEGATIVE [facility] 01/05/2025 10:0 6 AM EDT 01/05/2025 10:22 AM EDT Narrative CLINISYNC - 01/05/2025 12:06 PM EDT [facility] , Jose Hendrickso DO CLINISYNC Final Result Performing Organization Address [facility] Co de Phone Number [facility] * ALL RUBELLA IGG AB (01/05/2025 10:06 AM EDT) Pathologist [facility] RUBELLA ANTIBODIES, IGG 1.57 Immune >0.99 index [facility] Comment: Non-immune <0.90 Equivocal 0.90 - 0.99 Immune >0.99 Performed at: [facility] [address] [id number] Superintendent Quarry: Andrew Harris PhD, Phone: [phone] 01/05/2025 10:0 6 AM EDT 01/05/2025 10:22 AM EDT Narrative CLINISYNC - 01/06/2025 12:07 PM EDT Jose Michelezio DO CLINISYNC Final Result Performing Organization Address City/[facility]/ZIP Co de Phone Number [facility] * (ABNORMAL) ALL CBC WITH AUTO DIFF (01/05/2025 10:06 AM EDT) [facility] TB WBC 9.2 4.0 - 11.0 10 3/uL TBH TBH RBC 4.65 4.20 - 5.40 10 6/uL TBH TBH HGB 14.7 12.0 - 16.0 g/dL TBH TBH HCT 42.5 36.0 - 48.0 % TBH TBH MCV 91.4 81.0 - 99.0 fL TBH TBH MCH 31.6 26.7 - 34.0 pg TBH TBH MCHC 34.6 29.9 - 35.2 g/dL TBH TBH RDW 12.3 11.0 - 15.0 % TBH TBH PLT 216 150 - 450 10 3/uL TBH TBH MPV 10.1 9.5 - 13.5 fL TBH NEUTROPHILS PERCENT AUTO 76.9(H) 43.0 - 75.0 % TBH LYMPHOCYTES PERCENT AUTO 15.4(L) 20.5 - 60.0 % [facility]H MONOCYTES PERCENT AUTO 5.4 1.7 - 12.0 % TBH TBH EO % 1.7 0.9 - 7.0 % TBH BASOPHILS PERCENT AUTO 0.4 0.2 - 2.0 % [facility] IMMATURE GRANULOCYTES PCT AUTO 0.2 0.0 - 0.5 % TBH NEUTROPHILS ABSOLUTE AUTO 7.0(H) 1.4 - 6.5 10 3/uL TBH LYMPHOCYTES ABSOLUTE AUTO 1.4 1.2 - 3.8 10 3/uL TBH MONOCYTES ABSOLUTE AUTO 0.5 0.3 - 0.8 10 3/uL TBH TBH EO # 0.2 0.0 - 0.7 10 3/uL TBH BASOPHILS ABSOLUTE AUTO 0.0 0.0 - 0.1 10 3/uL TBH IMMATURE GRANULOCYTES ABS AUTO 0.02 0.00 - 0.03 10 3/uL [facility] 01/05/2025 10:0 6 AM EDT 01/05/2025 10:22 AM EDT Narrative CLINISYNC - 01/05/2025 10:38 AM EDT us Jose Michael DO CLINISYNC Final Result [facility] * TB DRUG SCREEN RAPID (URINE) (01/05/2025 9:38 AM EDT) [facility] CANNABINOID SCREEN URINE NEGATIVE NEGATIVE TBH PHENCYCLIDINE SCREEN URINE NEGATIVE NEGATIVE TBH COCAINE SCREEN URINE NEGATIVE NEGATIVE TBH METHAMPHETAMINES SCREEN URINE NEGATIVE NEGATIVE TBH OPIATE SCREEN URINE NEGATIVE NEGATIVE TBH AMPHETAMINE SCREEN URINE NEGATIVE NEGATIVE TBH BENZODIAZEPINES SCREEN URINE NEGATIVE NEGATIVE TBH TRICYCLIC ANTIDEPRESSANT URINE NEGATIVE NEGATIVE TBH METHADONE SCREEN URINE NEGATIVE NEGATIVE TBH BARBITURATES SCREEN URINE NEGATIVE NEGATIVE TBH OXYCODONE SCREEN URINE NEGATIVE NEGATIVE TBH BUPRENORPHINE SCREEN URINE NEGATIVE NEGATIVE TB[facility] Comment: DRUG CLASS TEST SYSTEM CUT-OFF CONCENTRATIONS ARE FOLLOWS: AMP (Amphetamine): 500 ng/mL BAR (Barbiturates): 200 ng/mL BZO (Benzodiazepines): 150 ng/mL BUP (Buprenorphine): 10 ng/mL ALEXA (Cocaine): 150 ng/mL mAMP (Methamphetamine): 500 ng/mL MTD (Methadone): 200 ng/mL OPI (Opiates): 100 ng/mL OXY (Oxycodone): 100 ng/mL PCP (Phencyclidine): 25 ng/mL THC (Cannabinoids): 50 ng/mL TCA (Trycyclic Antidepressants): 300 ng/mL 01/05/2025 9:38 AM EDT 01/05/2025 10:22 AM EDT Narrative CLINISYNC - 01/05/2025 10:47 AM EDT us Jose Michael DO CLINISYNC Final Result [facility] * (ABNORMAL) POCT , urine manually resulted (12/14/2024 9:45 AM EDT) Preg Test, Ur Positive Negative Urine 12/14/2024 9:45 AM EDT us Jose Michael DO POINT OF CARE TEST ENTER/EDIT OR DERABLES Final Result * US OB transvaginal (12/14/2024 8:51 AM EDT) Anatomical Region Laterality Modality Body Ultrasound 12/14/2024 8:37 PM EDT Narrative 12/14/2024 8:37 PM EDT EXAM: US OB TRANSVAGINAL HISTORY: Dating. COMPARISON: [...] the right ovary was not visualized. Electronically Signed:Electronically signed by RADHA POE II, MD, PHD at 14-Dec-2024 08:35:59 PM [facility] Procedure Note Radha Poe MD - 12/14/2024 EXAM: US OB TRANSVAGINAL HISTORY: Dating. COMPARISON: None available. TECHNIQUE: Two-dimensional transvaginal grayscale ultrasound imaging ofthe pelvis was performed. Color Doppler evaluation of the ovaries was alsoperformed. FINDINGS: The uterus demonstrates a normal homogeneous echotexture. The cervixmeasures 4 cm in length and the cervical os is closed. The right ovary is not visualized. The left ovary measures 2.7 x 1.7 x 2.7 cm and demonstrates a normalechotexture. There is normal color Doppler flow. No fluid is present within the cul-de-sac. There is a single, live intrauterine gestation identified with a fetalheart rate of 182 beats per minute and a crown-rump length measurement of1.9 cm, correlating to a gestational age of 8 weeks 3 days (+/- 5 days).There is a small subchorionic hemorrhage visualized. A yolk sac isvisualized. IMPRESSION: 1. Single, live intrauterine gestation 8 weeks, 4 days by LMP. Today'sultrasound measurements correlate with a gestational age of 8 weeks 3days (+/- 5 days). LYDIA by today's ultrasound is 07/23/2025. 2. Small subchorionic hemorrhage. 3. Normal color Doppler evaluation of the left ovary, the right ovary wasnot visualized. Electronically Signed:Electronically signed by RADHA POE II, MD, PHDat 14-Dec-2024 08:35:59 PM [facility] us Jose Michael DO IMG OB US PROCEDURES Final Resul t from Last 3 Months Insurance [facility] [employer] Care Teams Device Sales Consultant Relationship Specialty Start Date End Date Unallocated, Noms Provider, [address] [place] [address] PCP - General Family Medicine 08/03/24
--- OUTSIDE RECORDS SUMMARY | 2025-02-20 20:10 | XMS_ITS | Encounter Summary ---
Author Organization [facility] Address [address] [place] [address] Care Team Providers Care Commercial Airline Pilot Name Role Phone Unallocated, Noms Provider Primary Care Provi krissy Encounter Details Date Type Department Care Team (Late Contact Info) Description 08/10/2024 Abstract [facility] OB [address] [facility] [place] [phone] Jose Rodriguez, [address], [facility]11 Social History Tobacco Use Types Packs/Day Years Used Date Smoking Tobacco: Never Alcohol Use Standard Drinks/Week Comments Yes 0 (1 standard drink = 0.6 oz pur e alcohol) Comments No Sex and Gender Information Value Date Recorded Sex Assigned at Not on file Legal Sex Female 6:47 PM EDT Gender Identity Not on file Sexual Orientation Not on file documented as of this encounter Plan of Treatment Upcoming Encounters Date Type Department Care Team (Late Contact Info) Description 03/14/2025 10:50 AM EDT Routine [facility] BCP OB [address] [place] [address] Jose Rodriguez, DO [facility] [address] [place], [place] [id number] documented as of this encounter Visit Diagnoses Not on filedocumented in this encounter Care Teams Commercial Airline Pilot Relationship Specialty Start Date End Date Unallocated, Noms Provider, [address] [place] [address] PCP - General Family Medicine 08/03/24 documented as of this encounter
--- OUTSIDE RECORDS SUMMARY | 2025-02-20 20:10 | XMS_ITS | Encounter Summary ---
Author Organization [facility] Address [address] [place] [address] Care Team Providers Care Transformer Molder Name Role Phone Unallocated, Noms Provider Primary Care Provi krissy Encounter Details Date Type Department Care Team (Late Contact Info) Description 08/10/2024 Abstract [facility] OB [address] [facility] [place] [phone] Jose Rodriguez, [address], [facility]11 Social History Tobacco Use Types Packs/Day Years [...] Routine [facility] BCP OB [address] [place] [address] Jose Rodriguez, DO [employer] [address] [place], [place] [id number] documented as of this encounter Visit Diagnoses Not on filedocumented in this encounter Care Teams Transformer Molder Relationship Specialty Start Date End Date Unallocated, Noms Provider, [address] [place] [address] PCP - General Family Medicine 08/03/24 documented as of this encounter
--- OUTSIDE RECORDS SUMMARY | 2025-02-20 20:10 | XMS_ITS | Encounter Summary ---
Author Organization [facility] Address [address] [place] [address] Care Team Providers Care Wolf Hunter Name Role Phone Vaishali Zapata MD Primary Care Provider Bipin cheng Unallocated, Noms Provider Primary Care Provi krissy Encounter Details Date Type Department Care Team (Late st Contact Info) Description 06/28/2024 Abstract [facility] BCP OB [address] [place] [address] Jose Rodriguez DO [address], [facility]11 Social History Tobacco Use Types Packs/Day Years Used Date Smoking Tobacco: Never Alcohol Use Standard Drinks/Week Comments Yes 0 (1 standard drink = 0.6 oz pur e alcohol) Comments Unknown Sex and Gender Information Value Date Recorded Sex Assigned at Not on file Legal Sex Female 6:47 PM EDT Gender Identity Not on file Sexual Orientation Not on file documented as of this encounter Plan of Treatment Upcoming Encounters Date Type Department Care Team (Late st Contact Info) Description 03/14/2025 10:50 AM EDT Routine [facility] BCP OB [address] [place] [address] Jose Rodriguez DO [address] [place] [address] documented as of this encounter Visit Diagnoses Not on filedocumented in this encounter Care Teams Wolf Hunter Relationship Specialty Start Date End Date Vaishali Zapata MD [address] [place] [address] PCP - General Family Medicine 02/04/23 08/02/24 Unallocated, Noms Provider, [address] [place] [address] PCP - General Family Medicine 08/03/24 documented as of this encounter
--- OUTSIDE RECORDS SUMMARY | 2025-02-20 20:10 | XMS_ITS ---
Author Organization [facility] Source Produ ction (ClinicalSummary Clone) Address Unknown Care Team Providers Care Slitter And Rewinder Machine Operator Name Role Phone Unavailable Primary Care Physician Unavailab le Results * [UNITY] ANEUPLOIDY NIPT Performed by: picsell Component Value Range Date Fraction 12.4% 01/13/2025 05 :49 pm UTC Rh(D) NIPT RhD DETECTED 01/13/2025 05:4 9 pm UTC Sex Chromosome Aneuploidy NOT DETECTED 05:49 pm UTC Monosomy X LOW RISK <1 in 10,000 2024 05:49 pm UTC Trisomy 13 LOW RISK <1 in 10,000 2024 05:49 pm UTC Trisomy 18 LOW RISK <1 in 10,000 2024 05:49 pm UTC Trisomy 21 LOW RISK <1 in 10,000 2024 05:49 pm UTC Sex FEMALE 01/13/2025 05:4 9 pm UTC Gestation FERNANDEZ 01/14/20 05:49 pm UTC For detailed report, see PDF See PDF 01/13/2025 05:49 pm UTC 01/13/2025 05:4 9 pm UTC Social History Observation Value Start Date End Date
--- OUTSIDE RECORDS SUMMARY | 2025-02-20 20:10 | XMS_ITS | Encounter Summary ---
Author Organization [facility] Address [address] [place] [address] Care Team Providers Care Vending Machine Technician Name Role Phone Unallocated, Noms Provider Primary Care Provi krissy Encounter Details Date Type Department Care Team (Late Contact Info) Description 08/10/2024 Abstract [facility] [address] [place] [id number] Jose Rodriguez, [address] [place], [facility]11 Social History Tobacco Use Types [...] Routine [facility] [address] [place] [address] Jose Rodriguez, DO [facility] [address] [place], [place] [id number] documented as of this encounter Visit Diagnoses Not on filedocumented in this encounter Care Teams Vending Machine Technician Relationship Specialty Start Date End Date Unallocated, Noms Provider, [address] [place] [address] PCP - General Family Medicine 08/03/24 documented as of this encounter
--- OUTSIDE RECORDS SUMMARY | 2025-02-20 20:10 | XMS_ITS | Encounter Summary ---
Author Organization [facility] Address [address] [place] [address] Care Team Providers Care Saw Setter Name Role Phone Unallocated, Noms Provider Primary Care Provi krissy Encounter Details Date Type Department Care Team (Late st Contact Info) Description 08/10/2024 Clinisync Result Encounter [facility] External Department Unsolicited Mackenzie Rodriguez, DO [address] [place], [place] [phone] Social History Tobacco Use Types Packs/Day Years [...] [facility] B[facility] [address] [place] [phone] Mackenzie Rodriguez DO [address] [place] [address] documented as of this encounter Procedures Procedure Name Priority Date/Time Associated Diagnosis Comments US OB TRANSVAGINAL 08/10/2024 8: 44 AM EST documented in this encounter Results * US OB TRANSVAGINAL (08/10/2024 8:44 AM EST) Anatomical Region Laterality Modality Other 08/10/2024 8:44 AM EST Narrative 08/10/2024 8:47 [place] [address] Ultrasound Report Signed Patient: AMBER PIZANO MR#: [id number] : 2000 Acct:[id number] Age/Sex: 24 / F ADM Date: 08/10/24 Loc: SURGOUT Attending Dr: Mackenzie Rodriguez D.O. Ordering Physician: Mackenzie Rodriguez D.O. Date of Service: 08/10/24 Procedure(s): US OB transvaginal Accession Number(s): [id number] cc: LUIS SEE ; Mackenzie Rodriguez D.O. The [place] [address] Patient Name: AMBER PIZANO MRN: [id number] date: 2000 Sex: F Assigned Patient Location: [facility] Current Patient Location: [facility] Accession/Order Number: [id number] Exam Date: 08/10/2024 08:10 Report Date: 08/10/2024 [...] M.D. Signed By: 08/10/2447 DD/ 3 TD/TT: Patient Financial Specialist: Procedure Note Radiology, Radiologist, MD - 08/10/2024 [place] [address] Ultrasound Report Signed Patient: AMBER PIZANO MMR#: [id number] : 2000Acct:[id number] Age/Sex: 24 / FADM Date: 08/10/24 Loc: SURGOUT Attending Dr: Mackenzie Rodriguez D.O. Ordering Physician: Mackenzie Rodriguez D.O. Date of Service: 08/10/24 Procedure(s): US OB transvaginal Accession Number(s): [id number] cc: LUIS SEE ; Mackenzie Rodriguez D.O. The [place] [id number] Patient Name: AMBER PIZANO MRN: [id number] date: 2000 Sex: F Assigned Patient Location: [facility] Current Patient Location: [facility] Accession/Order Number: [id number] Exam Date: 08/10/2024 08:10 Report Date: 08/10/2024 [...] pole length was consistent with 8 weeks 0days on 08/02/2024 and 7 weeks 1 day on 06/29/2024.) Electronically authenticated by: LAVON HERRERA Date: 08/10/2024 08:44 Dictated By: Lavon Herrera M.D. Signed By:08/10/2447 DD/ TD/TT: Patient Financial Specialist: us Mackenzie Michael DO [facility] Final Result documented in this encounter Visit Diagnoses Not on filedocumented in this encounter Care Teams Saw Setter Relationship Specialty Start Date End Date Unallocated, Noms Provider, [address] [place] [address] PCP - General Family Medicine 08/03/24 documented as of this encounter
--- OUTSIDE RECORDS SUMMARY | 2025-02-20 20:10 | XMS_ITS | Encounter Summary ---
Author Organization [facility] Address [address] [place] [address] Care Team Providers Care Retail Route Supervisor Name Role Phone Vaishali Chaidez MD Primary Care Provider Bipin cheng Unallocated, Noms Provider Primary Care Provi krissy Encounter Details Date Type Department Care Team (Late st Contact Info) Description 06/29/2024 Clinisync Result Encounter [facility] External Department Unsolicited Mackenzie Rodriguez, DO [address] [place], [place] [phone] Social History Tobacco Use Types Packs/Day Years [...] Routine [facility] BCP OB [address] [place] [phone] Mackenzie Rodriguez, DO [address] [place] [address] documented as of this encounter Procedures Procedure Name Priority Date/Time Associated Diagnosis Comments US OB TRANSVAGINAL 06/29/2024 9: 11 AM EDT documented in this encounter Results * US OB TRANSVAGINAL (06/29/2024 9:11 AM EDT) Anatomical Region Laterality Modality Other 06/29/2024 9:11 AM EDT Narrative 06/29/2024 9:14 [place] [address] Ultrasound Report Signed Patient: Vimal Pizano MR#: [id number] : 2000 Acct:[id number] Age/Sex: 24 / F ADM Date: 06/29/24 Loc: [facility] Attending Dr: Mackenzie Rodriguez D.O. Ordering Physician: Mackenzie Rodriguez D.O. Date of Service: 06/29/24 Procedure(s): US OB transvaginal Accession Number(s): [id number] cc: Mackenzie Rodriguez D.O.; VAISHALI CHAIDEZ [place] [address] Patient Name: VIMAL PIZANO MRN: [id number] date: 2000 Sex: F Assigned [facility] Accession/Order Number: [id number] Exam Date: 06/29/2024 08:37 Report Date: 06/29/2024 09:11 At the request of: MACKENZIE RODRIGUEZ Procedure: US OB transvaginal EXAMINATION: US OB transvaginal HISTORY: MISSED MENSES COMPARISON: No relevant comparison available. FINDINGS: GESTATIONAL SAC: Present and normal appearing. YOLK SAC: Present and normal appearing. POLE: Present and normal appearing. CARDIAC: Present. UTERUS: Normal size and appearance. OVARIES: Right: Normal. Left: Normal. CERVIX: 3.5 cm in length and closed. CUL-DE-SAC: Normal. OTHER: None. AGE BY LMP: 9 weeks 0 days LYDIA BY LMP: 02/01/2025 AGE BY US CRL: 7 weeks 1 day LYDIA BY US CRL: 02/14/2025 US/US OB transvaginal IMPRESSION: 1. Single live intrauterine . Electronically authenticated by: LAVON HERRERA Date: 06/29/2024 09:11 Dictated By: Lavon Herrera M.D. Signed By: 06/29/24913 DD/ 0 TD/TT: Brisket Puller: Procedure Note Radiology, Radiologist, MD - 06/29/2024 [place] [address] Ultrasound Report Signed Patient: Vimal Pizano MMR#: [id number] : 2000Acct:[id number] Age/Sex: 24 / FADM Date: 06/29/24 Loc: [facility] Attending Dr: Mackenzie Rodriguez D.O. Ordering Physician: Mackenzie Rodriguez D.O. Date of Service: 06/29/24 Procedure(s): US OB transvaginal Accession Number(s): [id number] cc: Mackenzie Rodriguez D.O.; VAISHALI CHAIDEZ [place] [address] Patient Name: VIMAL PIZANO MRN: [id number] date: 2000 Sex: F Assigned [facility] Current [facility] Accession/Order Number: [id number] Exam Date: 06/29/2024 08:37 Report Date: 06/29/2024 09:11 At the request of: MACKENZIE RODRIGUEZ Procedure: US OB transvaginal EXAMINATION: US OB transvaginal HISTORY: MISSED MENSES COMPARISON: No relevant comparison available. FINDINGS: GESTATIONAL SAC: Present and normal appearing. YOLK SAC: Present and normal appearing. POLE: Present and normal appearing. CARDIAC: Present. UTERUS: Normal size and appearance. OVARIES: Right: Normal. Left: Normal. CERVIX: 3.5 cm in length and closed. CUL-DE-SAC: Normal. OTHER: None. AGE BY LMP: 9 weeks 0 days LYDIA BY LMP: 02/01/2025 AGE BY US CRL: 7 weeks 1 day LYDIA BY US CRL: 02/14/2025 US/US OB transvaginal IMPRESSION: 1. Single live intrauterine . Electronically authenticated by: LAVON HERRERA Date: 06/29/2024 09:11 Dictated By: Lavon Herrera M.D. Signed By:06/29/24913 DD/ 0 TD/TT: Brisket Puller: us Mackenzie Michael DO [facility] Final Result documented in this encounter Visit Diagnoses Not on filedocumented in this encounter Care Teams Retail Route Supervisor Relationship Specialty Start Date End Date Vaishali Chaidez MD [address] [place] [address] PCP - General Family Medicine 02/04/23 08/02/24 Unallocated, Noms Provider, [address] [facility] [place] [address] PCP - General Family Medicine 08/03/24 documented as of this encounter
--- OUTSIDE RECORDS SUMMARY | 2025-02-20 20:10 | XMS_ITS | Encounter Summary ---
Author Organization [facility] Address [address] [place] [address] Care Team Providers Care Tax Map Technician Name Role Phone Vaishali Zapata MD Primary Care Provider Bipin cheng Unallocated, Noms Provider Primary Care Provi krissy Encounter Details Date Type Department Care Team (Late st Contact Info) Description 06/29/2024 Abstract [facility] BCP OB [address] [place] [address] Jose Rodriguez DO [address] [place], [facility]11 Social History Tobacco Use Types [...] Routine [facility] BCP [address] [place] [address] Jose Rodriguez DO [address] [place] [address] documented as of this encounter Visit Diagnoses Not on filedocumented in this encounter Care Teams Tax Map Technician Relationship Specialty Start Date End Date Vaishali Zapata MD [address] [place] [address] PCP - General Family Medicine 02/04/23 08/02/24 Unallocated, Noms Provider, [address] [place] [address] PCP - General Family Medicine 08/03/24 documented as of this encounter
--- OUTSIDE RECORDS SUMMARY | 2025-02-20 20:10 | XMS_ITS ---
Author Organization [facility] Source Produ ction (ClinicalSummary Clone) Address Unknown Care Team Providers Care Member Of Parliament Name Role Phone Unavailable Primary Care Physician Unavailab le Results * [UNITY] CARRIER SCREEN Performed by: [email or web address] Component Value Range Date Sickle Cell Disease/Beta-Thalassemia/Hemo globinopathies carrier screen NEGATIVE 01/15/2025 03:29 pm UTC Alpha-Thalassemia carrier screen NEGATIVE 01/15/2025 03:29 pm UTC Cystic Fibrosis carrier screen NEGATIVE 01/15/2025 03:29 pm UTC Spinal Muscular Atrophy carrier screen NEGATIVE 2 SMN1 copies, SNP not present 01/15/2025 03:29 pm [place] For detailed report, see PDF See PDF 01/15/2025 03:29 pm UTC 01/15/2025 03:2 9 pm [place] Social History Observation Value Start Date End Date
--- OUTSIDE RECORDS SUMMARY | 2025-02-20 20:11 | XMS_ITS | CCD ---
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 Name Role Phone MICHAEL ., DR MANN [...] Unavailable MISC, DR DOMINIQUE Primary Care Unavailable WOODS HOLE, DR COCO Danielle Consulting Unavailable MICHAEL ., DR MANN Consulting Unavailable MICHAEL ., DR MANN Admitting Unavailable MICHAEL ., DR MANN Attending Unavailable MISC, DR DOMINIQUE Primary Care Unavailable MICHAEL ., DR MANN Consulting Unavailable MICHAEL ., DR MANN Admitting Unavailable MICHAEL ., DR MANN Attending Unavailable MISC, DR DOMINIQUE Primary Care Unavailable WOODS HOLE, DR COCO Danielle Consulting Unavailable MICHAEL ., [...] Jennifer Huston Unavailable JEFFERY Huston Attending Provider [phone] Vaishali Zapata MD Primary Care Provider Unavai lable NO FAMILY, PHYSICIAN Primary Care Provider Unava ilable Mackenzie Rodriguez DO Attending Provider Unallocated Rey GREENBERG Provider Primary Care Provi krissy NO FAMILY, PHYSICIAN Primary Care Unavailable Mackenzie Rodriguez Attending Unavailable Mackenzie Rodriguez Admitting Unavailable MACKENZIE RODRIGUEZ Attending Unavailable ROSSANA LEACH Attending Unavailable MACKENZIE RODRIGUEZ Attending Unavailable Medications Current Medications Medication Drug Class(es) Dates Sig (Normalized) Sig (Original) alpha-tocopherol acetate 30 unt / ascorbic acid 100 mg / beta carotene 1000 unt / calcium carbonate 200 mg / calcium pantothenate 7 mg / cholecalciferol 400 unt / docusate sodium 25 mg / ferrous fumarate 29 mg / folic acid 1 mg / niacinamide 15 mg / pyridoxine hydrochloride 20 mg / riboflavin 3 mg / thiamine 3 mg / vitamin b12 0.012 mg / zinc oxide 20 mg oral tablet (3 sources) Vitamin B12, Vitamin D, Vitamin C take 1 tablet by mouth once daily Vit-DSS-Fe Fum-FA ( 19) 29-1 MG tablet Take 1 each by mouth 1 (one) time each day at the same time Active loratadine 10 mg oral tablet (3 sources) take 1 tablet by mouth once daily loratadine (Claritin) 10 MG tablet Take 10 mg by mouth Daily Active ondansetron 4 mg oral tablet (10 sources) [...] 3 06/29/2024 08/20/2024 Discontinued (1 source) Active progesterone 100 mg vaginal insert (3 sources) Progesterone progesterone (Endometrin) 100 MG vaginal insert Insert 100 mg into the vagina in the morning and 100 mg before bedtime. Active Progesterone 200 MG suppository (2 sources) [...] finger(s) Episodic Other and delivery including normal (18 sources) Single live ; Translations: [Encounter for [...] 8 weeks gestation of ] 06-29-2024 Episodic Residual codes; unclassified (2 sources) Gestation period, 13 weeks; Translations: [13 weeks gestation of ] 01-14-2025 Episodic Spontaneous (2 sources) Miscarriage; Translations: [Complete or unspecified spontaneous without complication] 08-06-2024 Episodic Unclassified (1 source) CONTACT W/AND (SUSP) EXPOS COVID-19; Translations: [CONTACT W/AND (SUSP) EXPOS COVID-19] Onset: 08-25-2022 Unclassified (3 sources) OTH SPCF DIS/COND COMPL ; Translations: [OTH SPCF DIS/COND COMPL ] Onset: 05-01-2022 Past [...] source) OT SPCF DIS/COND COMPL ; Translations: [OT SPCF DIS/COND COMPL ] Onset: 04-27-2022 Urinary tract infections (5 sources) Urinary tract infection, site not specified; Translations: [UTI SITE NOT SPECIFIED] Onset: 05-10-2022 Episodic Viral infection (1 source) Viral infection, unspecified; Translations: [VIRAL INFECTION UNSPECIFIED] Onset: 07-07-2022 Episodic Results Test Name Value Interpretation Reference Range Facility Urinalysis macro (dipstick) panel (U)on 01-14-2025 Bilirubin, UA Negative Negative - 4(70) +++ mg/dL [facility] Blood, UA Positive Negative - 50 Jason/mcL [facility] Comment on above: trace-intact Clarity, UA Clear [facility] Color, UA Yellow [facility] Glucose, UA Negative Negative - 1999(110) ++++ mg/dL [facility] Interpretation and review of laboratory results Abnormal [facility] Ketones, UA Negative Negative - 160(16) ++++ mg/dL [facility] Leukocytes, UA Negative Negative - 500+++ Carlos/mcL [facility] Nitrite, UA Negative Negative - Positive [facility] pH, UA 6 5 - 9 [facility] e Protein, UA Negative Negative - 1999(20) ++++ mg/dL [facility] Spec Grav, UA 1.005 1 - 1.03 [facility] Urobilinogen, UA 0.2 0.2 - 12 mg/dL [facility] ALL CBC WITH AUTO DIFFon BASOPHILS ABSOLUTE AUTO 0 [facility] Basophils/100 WBC (Bld) 0.4 % 0.2 - 2.0 % [facility] Eosinophils/100 WBC (Bld) 1.7 % 0.9 - 7.0 % [facility] Erythrocyte distribution width (RBC) [Ratio] 12.3 % 11.0 - 15.0 % [facility] Hematocrit (Bld) [Volume fraction] 42.5 % 36.0 - 48.0 % [facility] Hemoglobin (Bld) [Mass/Vol] 14.7 g/dL 12.0 - 16.0 g/dL [facility] IMMATURE GRANULOCYTES ABS AUTO 0.02 [facility] Immature granulocytes/100 WBC (Bld) 0.2 % 0.0 - 0.5 % [facility] Interpretation and review of laboratory results Abnormal [facility] LYMPHOCYTES ABSOLUTE AUTO 1.4 [facility] Lymphocytes/100 WBC (Bld) 15.4 % Low 20.5 - 60.0 % [facility] MCH (RBC) [Entitic mass] 31.6 pg 26.7 - 34.0 pg [facility] MCHC (RBC) [Mass/Vol] 34.6 g/dL 29.9 - 35.2 g/dL [facility] MCV (RBC) [Entitic vol] 91.4 fL 81.0 - 99.0 fL [facility] MONOCYTES ABSOLUTE AUTO 0.5 [facility] Monocytes/100 WBC (Bld) 5.4 % 1.7 - 12.0 % [facility] NEUTROPHILS ABSOLUTE AUTO 7 High [facility] Neutrophils/100 WBC (Bld) 76.9 % High 43.0 - 75.0 % [facility] Platelet mean volume (Bld) [Entitic vol] 10.1 fL 9.5 - 13.5 fL [facility] EO # 0.2 [facility] PLT 216 [facility] RBC 4.65 [facility] WBC 9.2 [facility] US OB TRANSVAGINALon 025 US OB TRANSVAGINAL [...] the right ovary was not visualized. Electronically Signed:Electronicall y signed by RADHA POE II, MD, PHD at 14-Dec-2024 08:35:59 PM [facility] [place] [facility] Normal Not Available Comment on above: Order Comment: US OB TRANSVAGINAL No LMP recorded. TBH PREG QUANT HCGon 025 HCG QUANTITATIVE 58057 mIU/mL [facility] Comment on above: 5-50 0.2-1 WEEK 50-500 1-2 WEEKS 100-5,000 2-3 WEEKS 500-10,000 3-4 WEEKS 1,000-50,000 4-5 WEEKS 10,000-100,000 5-6 WEEKS 15,000-200,000 6-8 WEEKS 10,000-100,000 2-3 MONTHS [facility] e TB PREG QUANT HCGon 11-19- 025 HCG QUANTITATIVE 6254 mIU/mL [facility] Comment on above: 5-50 0.2-1 WEEK 50-500 1-2 WEEKS 100-5,000 2-3 WEEKS 500-10,000 3-4 WEEKS 1,000-50,000 4-5 WEEKS 10,000-100,000 5-6 WEEKS 15,000-200,000 6-8 WEEKS 10,000-100,000 2-3 MONTHS [facility] PREG QUANT HCGon 024 HCG QUANTITATIVE 6 mIU/mL [facility] Comment on above: 5-50 0.2-1 WEEK 50-500 1-2 WEEKS 100-5,000 2-3 WEEKS 500-10,000 3-4 WEEKS 1,000-50,000 4-5 WEEKS 10,000-100,000 5-6 WEEKS 15,000-200,000 6-8 WEEKS 10,000-100,000 2-3 MONTHS [facility] ALL CBC WITH AUTO DIFFon BASOPHILS ABSOLUTE AUTO 0 [facility] Healthcare Basophils/100 WBC (Bld) 0.5 % 0.2 - 2.0 % [facility] Eosinophils/100 WBC (Bld) 6.2 % 0.9 - 7.0 % [facility] Erythrocyte distribution width (RBC) [Ratio] 11.9 % 11.0 - 15.0 % [facility] Hematocrit (Bld) [Volume fraction] 43.8 % 36.0 - 48.0 % [facility] Hemoglobin (Bld) [Mass/Vol] 14.8 g/dL 12.0 - 16.0 g/dL [facility] IMMATURE GRANULOCYTES ABS AUTO 0.02 [facility] Immature granulocytes/100 WBC (Bld) 0.2 % 0.0 - 0.5 % [facility] LYMPHOCYTES ABSOLUTE AUTO 2 [facility] Lymphocytes/100 WBC (Bld) 22.1 % 20.5 - 60.0 % [facility] MCH (RBC) [Entitic mass] 31.7 pg 26.7 - 34.0 pg [facility] MCHC (RBC) [Mass/Vol] 33.8 g/dL 29.9 - 35.2 g/dL [facility] MCV (RBC) [Entitic vol] 93.8 fL 81.0 - 99.0 fL [facility] MONOCYTES ABSOLUTE AUTO 0.5 [facility] Monocytes/100 WBC (Bld) 5.3 % 1.7 - 12.0 % [facility] NEUTROPHILS ABSOLUTE AUTO 5.8 [facility] Neutrophils/100 WBC (Bld) 65.7 % 43.0 - 75.0 % [facility] Platelet mean volume (Bld) [Entitic vol] 10 fL 9.5 - 13.5 fL [facility] are TBH EO # 0.6 [facility] PLT 236 [facility] RBC 4.67 [facility] WBC 8.9 [facility] [place] 08-10-2024 L Specimen: [id number] Received: 08/10/24 Status: CAROL Hoagn Num: [id number] Spec Type: Surgical Subm Dr: Mackenzie Rodriguez Tissues: A Products of Conception - Spontaneous or Missed (CONTENTS OF CONCEPT Procedures: HE/2, Gross/Micro L4 Age/ Patient Sex Location Account Attending Physician FunesAmber 23/ LABELL [id number] Mackenzie Rodriguez SPEC NUM: [id number] RECD: 08/10/24 STATUS: CAROL HOANG NUM: [id number] CAROLIN: 08/10/24 [facility] DR: Mackenzie Rodriguez ENTERED: 08/10/24 [facility] DR: Rafia,Lab SPEC TYPE: Surgical DEPT: MONICA ALTMAN ENTERED BY: [id number] RECV BY: [id number] ORDERED: HE/2, Gross/Micro L4 ORDERED: HE/2, Gross/Micro [...] villi and decidua. No tissue is identified. Concrete Crusher Loader Operator sections of the chorionic villi are submitted in cassette A1 with entry level marketing representative sections of the decidua is submitted in cassette A2. (2, ss, [id number]) CPT Codes 81672 Specimen: [id number] Received: 08/10/24 Status: CAROL Hoang Num: [id number] Spec Type: Surgical Subm Dr: Mackenzie Rodriguez Tissues: A Products of Conception - Spontaneous or Missed (CONTENTS OF CONCEPT Procedures: HE/2, Gross/Micro L4 Patient: Amebr Funes [id number] (Continued) Signed (signature on file) Josh Aragon MD 08/13/24 [id number] Normal [facility] TB PREG QUANT HCGon 024 HCG QUANTITATIVE 240 mIU/mL [facility] Comment on above: 5-50 0.2-1 WEEK 50-500 1-2 WEEKS 100-5,000 2-3 WEEKS 500-10,000 3-4 WEEKS 1,000-50,000 4-5 WEEKS 10,000-100,000 5-6 WEEKS 15,000-200,000 6-8 WEEKS 10,000-100,000 2-3 MONTHS [facility] ALL CBC WITH AUTO DIFFon BASOPHILS ABSOLUTE AUTO 0.1 [facility] Basophils/100 WBC (Bld) 0.5 % 0.2 - 2.0 % [facility] Eosinophils/100 WBC (Bld) 2.8 % 0.9 - 7.0 % [facility] Erythrocyte distribution width (RBC) [Ratio] 11.9 % 11.0 - 15.0 % [facility] Hematocrit (Bld) [Volume fraction] 44.7 % 36.0 - 48.0 % [facility] Hemoglobin (Bld) [Mass/Vol] 15.3 g/dL 12.0 - 16.0 g/dL [facility] IMMATURE GRANULOCYTES ABS AUTO 0.03 [facility] Immature granulocytes/100 WBC (Bld) 0.3 % 0.0 - 0.5 % [facility] Interpretation and review of laboratory results Abnormal [facility] LYMPHOCYTES ABSOLUTE AUTO 1.6 [facility] Lymphocytes/100 WBC (Bld) 14.9 % Low 20.5 - 60.0 % [facility] MCH (RBC) [Entitic mass] 31.7 pg 26.7 - 34.0 pg [facility] MCHC (RBC) [Mass/Vol] 34.2 g/dL 29.9 - 35.2 g/dL [facility] MCV (RBC) [Entitic vol] 92.7 fL 81.0 - 99.0 fL [facility] MONOCYTES ABSOLUTE AUTO 0.4 [facility] Monocytes/100 WBC (Bld) 3.7 % 1.7 - 12.0 % [facility] NEUTROPHILS ABSOLUTE AUTO 8.2 High [facility] Neutrophils/100 WBC (Bld) 77.8 % High 43.0 - 75.0 % [facility] Platelet mean volume (Bld) [Entitic vol] 10 fL 9.5 - 13.5 fL [facility] EO # 0.3 [facility] PLT 263 [facility] RBC 4.82 [facility] WBC 10.6 [facility] No Panel Informationon 07-21 [facility] DRUG SCREEN RAPID (URINE )on 07-21-2024 AMPHETAMINE SCREEN URINE Negative NEGATIVE [facility] BARBITURATES SCREEN URINE Negative NEGATIVE [facility] BENZODIAZEPINES SCREEN URINE Negative NEGATIVE [facility] BUPRENORPHINE SCREEN URINE Negative NEGATIVE [facility] Comment on above: DRUG CLASS TEST SYST [...] ng/mL CANNABINOID SCREEN URINE Negative NEGATIVE [facility] COCAINE SCREEN URINE Negative NEGATIVE [facility] METHADONE SCREEN URINE Negative NEGATIVE [facility] METHAMPHETAMINES SCREEN URINE Negative NEGATIVE [facility] OPIATE SCREEN URINE Negative NEGATIVE [facility] OXYCODONE SCREEN URINE Negative NEGATIVE [facility] PHENCYCLIDINE SCREEN URINE Negative NEGATIVE [facility] TRICYCLIC ANTIDEPRESSANT URINE Negative NEGATIVE [facility] REEFLEX IF POSITIVE [facility] HCG ( test) Ql (U)o n 06-29-2024 Interpretation and review of laboratory results Abnormal [facility] Preg Test, Ur Positive [facility] Urinalysis macro (dipstick) panel (U)on 06-29-2024 Bilirubin, UA Negative Negative - 4(70) +++ mg/dL [facility] Blood, UA Negative Negative - 50 Jason/mcL [facility] Clarity, UA Clear [facility] re Color, UA Yellow [facility] e Glucose, UA Negative Negative - 1999(110) ++++ mg/dL [facility] Interpretation and review of laboratory results Normal [facility] Ketones, UA Negative Negative - 160(16) ++++ mg/dL [facility] Leukocytes, UA Negative Negative - 500+++ Carlos/mcL [facility] Nitrite, UA Negative Negative - Positive [facility] pH, UA 7.0 5 - 9 [facility] e Protein, UA Negative Negative - 1999(20) ++++ mg/dL [facility] Spec Grav, UA 1.015 1 - 1.03 [facility] Urobilinogen, UA 0.2 0.2 - 12 mg/dL [facility] XR hand RT min 3V*on 023 XR hand RT min 3V* [facility] [employer] Other XR hand RT min 3V* [facility] Main [place] [employer] Other XR hand RT min 3V* [address] [place] [address] [employer] Other XR hand RT min 3V* [place] [address] [employer] Other XR hand RT min 3V* XRay Report [employer] Other XR hand RT min 3V* Signed [employer] Other XR hand RT min 3V* Patient: mAber Funes MR#: [id number] [employer] Other XR hand RT min 3V* 19 [employer] Other XR hand RT min 3V* : 2000 Acct:[id number] [employer] Other XR hand RT min 3V* Age/Sex: 22 / F ADM Date: 12/26/22 [employer] Other XR hand RT min 3V* Loc: XDUCLY Room: Type: REG CLI [employer] Other XR hand RT min 3V* Attending Dr: Jennifer GIL [employer] Other XR hand RT min 3V* Copies to: JEFFERY Rodriguez [employer] Other XR hand RT min 3V* Ordering Provider: JEFFERY Rodriguez [employer] Other XR hand RT min 3V* Date of Service: 12/26/22 [employer] Other XR hand RT min 3V* XR/XR hand RT min 3V*: RIGHT HAND INJURY [employer] Other XR hand RT min 3V* RIGHT HAND - 4 views [employer] Other XR hand RT min 3V* REASON FOR EXAM: Patient had right thumb hyperextended yesterday when trying to open the door. Now [employer] Other XR hand RT min 3V* with pain. [employer] Other XR hand RT min 3V* COMPARISON: None [employer] Other XR hand RT min 3V* FINDINGS: [employer] Other XR hand RT min 3V* No focal soft tissue abnormality. There appears to be avulsion fracture involving the base of the [employer] Other XR hand RT min 3V* distal phalanx of the thumb. Joint spaces appear maintained. No bony erosions. [employer] Other XR hand RT min 3V* XR/XR hand RT min 3V* [employer] Other XR hand RT min 3V* IMPRESSION: [employer] Other XR hand RT min 3V* AVULSION FRACTURE INVOLVING THE BASE OF THE DISTAL PHALANX OF THE THUMB. [employer] Other XR hand RT min 3V* Impression dictated by: Bulmaro Arias Jr., D.O.12/26/2022 1:44 PM [employer] Other XR hand RT min 3V* Dictation Location: [place] [address] [employer] Other XR hand RT min 3V* Transcribed By: LYNETTE 12/26/22 1344 [employer] Other XR hand RT min 3V* Dictated By: Bulmaro Arias Jr, DO 12/26/22 1343 [facility] [employer] Other XR hand RT min 3V* Signed By: [facility] [employer] Other XR hand RT min 3V* 12/26/22 1344 [facility] [employer] Other PAP ACOG PANEL 2: 22 to 30on 11-09-2022 . . Normal [facility] Comment on above: Performed By: #### [id number] ####[place] [address] [place], [place] [address]DrGene Mancini Age Gdln ACOG Testing [facility] Comment on above: Performed By: #### 4 [id number] ####[place] [address] [place], [place] [address]DrGene Mancini DIAGNOSIS: Comment [facility] Comment on above: Result Comment: NEGA TIVE FOR INTRAEPITHELIAL LESION OR MALIGNANCY. Performed By: #### 4 [id number] ####[place] [address] [place], [place] [address]DrGene Mancini Methodology: Comment [facility] Comment on above: Result Comment: This liquid based ThinPrep(R) pap test was screened with the use of an image guided system. Performed By: #### 4 [id number] ####[place] [address] [place], [place] [address]DrGene Mancini Note: Comment [facility] Comment on above: Result Comment: The Pap smear is a screening test designed to aid in the detection of premalignant and malignant conditions of the uterine cervix. It is not a diagnostic procedure and should not be used as the sole means of detecting cervical cancer. Both false-positive and false-negative reports do occur. . Performed By: #### [id number] ####[place] [address] [place], [place] [address]DrGene Mancini Performed by: Comment [facility] Comment on above: Result Comment: Zuleima Lin, Director Radio (ASCP) Performed By: #### 4 [id number] ####[place] [address] [place] [id number] Mancini Reflex Criteria: Comment Normal [facility] Comment on above: Result Comment: The HPV DNA reflex criteria were not met with this specimen result therefore, no HPV testing was performed. . Performed By: #### 4 [id number] ####[place] [address] [place] [address]DrGene Mancini Specimen adequacy: Comment Normal [facility] Comment on above: Result Comment: Sati sfactory for evaluation. Endocervical and/or squamous metaplastic cells (endocervical component) are present. Performed By: #### 4 [id number] ####[place] [address] [place] [address]DrGene Mancini Cytology Cervical or vaginal smear or scraping studyOrdered By: Jael Nix on 11-02-2022 [facility] CBC AUTO DIFFon 08-11-2022 BASO # 0.0 103/ul Normal 0.0-0.[address] [facility] Comment on above: Performed By: #### C T/NGNA #### [facility] [address] [address] [address] Donis Mancini Basophils/100 WBC (Bld) 0.2 % Normal 0.2-2.[address] [facility] Comment on above: Performed By: #### C T/NGNA #### [facility] [address] [address] [address] Donis Mancini EO # 0.1 103/ul Normal 0.0-0.[address] [facility] Comment on above: Performed By: #### C T/NGNA #### [facility] [address] [address] [address] Donis Mancini Eosinophils/100 WBC (Bld) 0.5 % Critically low 0.9-7.[address] [facility] Comment on above: Performed By: #### C T/NGNA #### [facility] [address] [address] [address] Donis Mancini Erythrocyte distribution width (RBC) [Ratio] 12.5 % Normal 11.0-15.[address] [facility] Comment on above: Performed By: #### C T/NGNA #### [facility] [address] [address] [address] Donis Mancini Hematocrit (Bld) [Volume fraction] 35.9 % Critically low 36.0-48.[address] [facility] Comment on above: Performed By: #### C T/NGNA #### [facility] [address] [place] [address] Dr. Donis Mancini Hemoglobin (Bld) [Mass/Vol] 12.4 g/dL Normal 12.0-16.[address] [facility] Comment on above: Result Comment: michelet ent delivered Performed By: #### C T/NGNA #### [facility] [address] [place] [address] Dr. Donis Mancini IG # 0.10 10e3/ul Critically high 0.00-0.03 [facility] Comment on above: Performed By: #### C T/NGNA #### [facility] [address] [place] [address] Dr. Donis Mancini IG % 0.5 % Normal 0.0-0.[address] [facility] Comment on above: Performed By: #### C T/NGNA #### [facility] [address] [place] [address] Dr. Donis Mancini LYMPH # 1.5 103/ul Normal 1.2-3.[address] [facility] Comment on above: Performed By: #### C T/NGNA #### [facility] [address] [place] [address] Dr. Donis Mancini Lymphocytes/100 WBC (Bld) 7.6 % Critically low 20.5-60.[address] [facility] Comment on above: Performed By: #### C T/NGNA #### [facility] [address] [place] [address] Dr. Donis Mancini MANUAL DIFF REQ NO Normal [facility] Comment on above: Performed By: #### C T/NGNA #### [facility] [address] [place] [address] Dr. Donis Mancini MCH (RBC) [Entitic mass] 32.2 pg Normal 26.7-34.0 [facility] [place] Comment on above: Performed By: #### C T/NGNA #### [facility] [address] [place] [address] Dr. Donis Mancini MCHC (RBC) [Mass/Vol] 34.5 g/dL Normal 29.9-35.2 [facility] [place] Comment on above: Performed By: #### C T/NGNA #### [facility] [address] [place] [address] Dr. Donis Mancini MCV (RBC) [Entitic vol] 93.2 fL Normal 81.0-99.0 [facility] [place] Comment on above: Performed By: #### C T/NGNA #### [facility] [address] [place] [address] Dr. Donis Mancini MONO # 1.3 103/ul Critically high 0.3-0.8 [facility] Comment on above: Performed By: #### C T/NGNA #### [facility] [address] [place] [address] Dr. Donis Mancini Monocytes/100 WBC (Bld) 6.8 % Normal 1.7-12.0 [facility] [place] Comment on above: Performed By: #### C T/NGNA #### [facility] [address] [place] [address] Dr. Donis Mancini NEUT # 16.2 103/ul Critically high 1.4-6.5 [facility] Comment on above: Performed By: #### C T/NGNA #### [facility] [address] [place] [address] Dr. Donis Mancini Neutrophils/100 WBC (Bld) 84.4 % Critically high 43.0-75.0 [facility] [place] Comment on above: Performed By: #### C T/NGNA #### [facility] [address] [place] [address] Dr. Donis Mancini Platelet mean volume (Bld) [Entitic vol] 11.8 fL Normal 9.5-13.5 [facility] Comment on above: Performed By: #### C T/NGNA #### [facility] [address] [place], [place] [address] Dr. Donis Mancini PLT 156 103/ul Normal 150-450 [facility] Comment on above: Performed By: #### C T/NGNA #### [facility] [address] [place], [place] [address] Dr. Donis Mancini RBC 3.85 106/ul Critically low 4.20-5.40 [facility] Comment on above: Performed By: #### C T/NGNA #### [facility] [address] [place], [place] [address] Dr. Donis Mancini WBC 19.2 103/ul Critically high 4.0-11.0 [facility] Comment on above: Performed By: #### C T/NGNA #### [facility] [address] [place], [place] [address] Dr. Donis aMncini Covid-19 PCR (CVDTBH)on 07-27 SARS-CoV-2 (COVID-19) RNA INESSA+probe Ql (Unsp spec) Not detected Normal NOT DETECTED [facility] Comment on above: Result Comment: When diagnostic [...] for this test is supported by the [place] of Health and Human Service's declaration that [...] be used). Performed By: #### C VDTBH ####[facility] [address] [place], [place] [address]AmDr. Donis Mancini DRUG SCREEN RAPID (URINE)on 08-10-2022 AMP Negative Normal NEGATIVE [facility] Comment on above: Performed By: #### D RUGRPD ####[facility] [address] [place] [address]Dr. Donis Mancini BAR Negative Normal NEGATIVE [facility] Comment on above: Performed By: #### D RUGRPD ####[facility] [address] [place] [address]Dr. Donis Mancini BUP Negative Normal NEGATIVE [facility] Comment on above: Performed By: #### D RUGRPD ####[facility] [address] [place] [address]Dr. Donis Mancini BZO Negative Normal NEGATIVE [facility] Comment on above: Performed By: #### D RUGRPD ####[facility] [address]rewl[address] [place] [address]Dr. Donis Mancini ALEXA Negative Normal NEGATIVE [facility] Comment on above: Performed By: #### D RUGRPD ####[facility] [address] [place] [address]Dr. Donis Mancini CUT-OFFS SEE BELOW Normal [facility] Comment on above: Result Comment: AMP (Amphetamine): 500ng/mL, BAR (Barbituates): 200 ng/mL, BZO (Benzodiazepines): 150 ng/mL, BUP (Buprenorphine): 10 ng/mL, ALEXA (Cocaine): 150 ng/mL, mAMP (Methamphetamine): 500 ng/mL, MTD (Methadone): 200 ng/mL, OPI (Opiates): 100 ng/mL, OXY (Oxycodone): 100 ng/mL, PCP (Phencyclidine): 25 ng/mL, PPX (Propoxyphene): 300 ng/mL, THC (Cannabinoids): 50 ng/mL, TCA (Trycyclic Antidepressants): 300 ng/mL Performed By: #### D RUGRPD ####[facility] [address] [place] [address]Dr. Donis Mancini DRUG CUT HEADER DRUG CLASS TEST SYSTEM CUT-OFF CONCENTRATIONS ARE FOLLOWS: Normal [facility] Comment on above: Performed By: #### D RUGRPD ####[facility] [address] [place] [id number]. Donis Mancini mAMP Negative Normal NEGATIVE [facility] Comment on above: Performed By: #### D RUGRPD ####[facility] [address] [place] [phone]. Donis Mancini MTD Negative Normal NEGATIVE [facility] Comment on above: Performed By: #### D RUGRPD ####[facility] [address] [place] [phone]. Donis Mancini OPI Negative Normal NEGATIVE [facility] Comment on above: Performed By: #### D RUGRPD ####[facility] [address] [place] [address]Dr. Donis Mancini OXY Negative Normal NEGATIVE [facility] Comment on above: Performed By: #### D RUGRPD ####[facility] [address]xi[address] [place] [address]Dr. Donis Mancini PCP Negative Normal NEGATIVE [facility] Comment on above: Performed By: #### D RUGRPD ####[facility] [address] [place] [address]Dr. Donis Mancini PPX Negative Normal NEGATIVE [facility] Comment on above: Performed By: #### D RUGRPD ####[facility] [address]cnus[address] [place] [address]Dr. Donis Mancini TCA Negative Normal NEGATIVE [facility] Comment on above: Performed By: #### D RUGRPD ####[facility] [address] [place] [address]Dr. Donis Mancini THC Negative Normal NEGATIVE [facility] Comment on above: Performed By: #### D RUGRPD ####[facility] [address] [place] [address]Dr. Donis Mancini TYPE AND SCREENon 08-10-2022 TYPE AND SCREEN Negative Normal [facility] Comment on above: Performed By: #### T NS ####[facility] [address] [place], [place] [address]Dr. Donis Mancini US PREG BIOPHY W NON [...] ESTEFANY BENNETT Date: 2022-08-10 07:18 Normal [facility] US PREG GROWTHon 08-10-2022 US PREG GROWTH [...] ESTEFANY BENNETT Date: 2022-08-10 07:16 Normal [facility] CBC AUTO DIFFon 08-09-2022 BASO # 0.0 103/ul Normal 0.0-0.1 [facility] Comment on above: Performed By: #### C BC ####[facility] [address] [place], [place] [address]QiGene Donis Mancini Basophils/100 WBC (Bld) 0.2 % Normal 0.2-2.0 [facility] Comment on above: Performed By: #### C BC ####[facility] [address] [place] [phone]. Donis Mancini EO # 0.4 103/ul Normal 0.0-0.7 [facility] Comment on above: Performed By: #### C BC ####[facility] [address] [place] [address]Dr. Donis Mancini Eosinophils/100 WBC (Bld) 2.8 % Normal 0.9-7.0 [facility] Comment on above: Performed By: #### C BC ####[facility] [address] [place] [address]Dr. Donis Mancini Erythrocyte distribution width (RBC) [Ratio] 12.2 % Normal 11.0-15.0 [facility] Comment on above: Performed By: #### C BC ####[facility] [address] [place] [address]Dr. Donis Mancini Hematocrit (Bld) [Volume fraction] 41.4 % Normal 36.0-48.0 [facility] Comment on above: Performed By: #### C BC ####[facility] [address]qa[address] [place] [address]Dr. Donis Mancini Hemoglobin (Bld) [Mass/Vol] 14.4 g/dL Normal 12.0-16.0 [facility] Comment on above: Performed By: #### C BC ####[facility] [address]so[address] [place] [address]Dr. Donis Mancini IG # 0.06 10e3/ul Critically high 0.00-0.03 [facility] Comment on above: Performed By: #### C BC ####[facility] [address] [place] [address]Dr. Donis Mancini IG % 0.5 % Normal 0.0-0.5 [facility] Comment on above: Performed By: #### C BC ####[facility] [address] [place] [address]Dr. Donis Mancini LYMPH # 1.5 103/ul Normal 1.2-3.8 [facility] Comment on above: Performed By: #### C BC ####[facility] [address] [place] [phone]. Donis Live Lymphocytes/100 WBC (Bld) 11.7 % Critically low 20.5-60.0 [facility] Comment on above: Performed By: #### C BC ####[facility] [address] [place] [phone]. Laceyjavi Mancini MANUAL DIFF REQ NO Normal [facility] Comment on above: Performed By: #### C BC ####[facility] [address] [place] [phone]. Donis Live MCH (RBC) [Entitic mass] 31.9 pg Normal 26.7-34.0 [facility] Comment on above: Performed By: #### C BC ####[facility] [address] [place] [phone]. Donis Live MCHC (RBC) [Mass/Vol] 34.8 g/dL Normal 29.9-35.2 [facility] Comment on above: Performed By: #### C BC ####[facility] [address] [place] [phone]. Laceyjavi Mancini MCV (RBC) [Entitic vol] 91.8 fL Normal 81.0-99.0 [facility] Comment on above: Performed By: #### C BC ####[facility] [address] [place] [phone]. Donis Mancini MONO # 1.0 103/ul Critically high 0.3-0.8 [facility] Comment on above: Performed By: #### C BC ####[facility] [address] [place] [phone]. Laceyjavi Mancini Monocytes/100 WBC (Bld) 7.5 % Normal 1.7-12.0 [facility] Comment on above: Performed By: #### C BC ####[facility] [address] [place] [phone]. Donis Mancini NEUT # 10.0 103/ul Critically high 1.4-6.5 [facility] Comment on above: Performed By: #### C BC ####[facility] [address]gr[address] [place] [phone]. Donis Mancini Neutrophils/100 WBC (Bld) 77.3 % Critically high 43.0-75.[address] [facility] Comment on above: Performed By: #### C BC ####[facility] [address]ju[address] [place] [phone]. Donis Mancini Platelet mean volume (Bld) [Entitic vol] 11.6 fL Normal 9.5-13.[address] [facility] Comment on above: Performed By: #### C BC ####[facility] [address]epx[address] [place] [phone]. Donis Mancini PLT 184 103/ul Normal 150-450 [facility] Comment on above: Performed By: #### C BC ####[facility] [address]wlswsbp[address] [place] [phone]. Donis Mancini RBC 4.51 106/ul Normal 4.20-5.[address] [facility] Comment on above: Performed By: #### C BC ####[facility] [address]cul[address]ktv[address] [place] [phone]. Donis Mancini WBC 12.9 103/ul Critically high 4.0-11.0 [facility] Comment on above: Performed By: #### C BC ####[facility] [address]ws[address] [place] [phone]. Donis Mancini LDHon 08-09-2022 LDH 167 U/L Normal 81-[address] [facility] Comment on above: Performed By: #### C T/NGNA #### [facility] [address] [place] [address] [address] Donis Mancini PROF 14(COMP METB)on 022 Albumin [Mass/Vol] 2.7 g/dL Critically low 3.4-5.0 [facility] Comment on above: Performed By: #### C T/NGNA #### [facility] [address] [place] [address] [address] Donis Mancini Albumin/Globulin [Mass ratio] 0.6 {ratio} Normal [facility] Comment on above: Performed By: #### C T/NGNA #### [facility] [address] [place] [address] [address] Donis Mancini ALP [Catalytic activity/Vol] 176 U/L Critically high 46-[address] [facility] Comment on above: Performed By: #### C T/NGNA #### [facility] [address] [place] [address] [address] Donis Mancini ALT [Catalytic activity/Vol] 20 U/L Normal 14-[address] [facility] Comment on above: Performed By: #### C T/NGNA #### [facility] [address] [place] [address] [address] Donis Mancini Anion gap [Moles/Vol] 12.9 mmol/L Normal [facility] Comment on above: Performed By: #### C T/NGNA #### [facility] [address] [place] [address] Dr. Donis Mancini AST [Catalytic activity/Vol] 20 U/L Normal 15-[address] [facility] Comment on above: Performed By: #### C T/NGNA #### [facility] [address] [place] [address] [address] Donis Mancini Bilirubin [Mass/Vol] 0.1 mg/dL Critically low 0.2-1.[address] [facility] Comment on above: Performed By: #### C T/NGNA #### [facility] [address] [place] [address] Dr. Donis Mancini Calcium [Mass/Vol] 9.1 mg/dL Normal 8.5-10.1 [facility] Comment on above: Performed By: #### C T/NGNA #### [facility] [address] [place] [address] Dr. Donis Mancini Chloride [Moles/Vol] 104 mmol/L Normal 98-[address] [facility] Comment on above: Performed By: #### C T/NGNA #### [facility] [address] [place] [address] [address] Donis Mancini CO2 [Moles/Vol] 22.9 mmol/L Normal 21.0-32.0 [facility] Comment on above: Performed By: #### C T/NGNA #### [facility] [address] [place] [address] [address] Donis Mancini Creatinine [Mass/Vol] 0.43 mg/dL Critically low 0.55-1.[address] [facility] Comment on above: Performed By: #### C T/NGNA #### [facility] [address] [place] [address] [address] Donis Mancini EGFR-AF [place]IZ[place] >60 Normal >=60 [facility] Comment on above: Performed By: #### C T/NGNA #### [facility] [address] [place] [address] [address] Donis Mancini EGFR-NON AF [place]IZ[place] >60 Normal >=[address] [facility] Comment on above: Performed By: #### C T/NGNA #### [facility] [address] [place] [address] [address] Donis Mancini Globulin (S) [Mass/Vol] 4.2 g/dL Normal [facility] Comment on above: Performed By: #### C T/NGNA #### [facility] [address] [place] [address] [address] Donis Mancini Glucose [Mass/Vol] 95 mg/dL Normal 74-106 [facility] Comment on above: Performed By: #### C T/NGNA #### [facility] [address] [place] [address] [address] Donis Mancini Potassium [Moles/Vol] 3.8 mmol/L Normal 3.5-5.[address] [facility] Comment on above: Performed By: #### C T/NGNA #### [facility] [address] [place] [address] [address] Donis Mancini Protein [Mass/Vol] 6.9 g/dL Normal 6.4-8.2 [facility] Comment on above: Performed By: #### C T/NGNA #### [facility] [address] [place] [address] [address] Donis Mancini Sodium [Moles/Vol] 136 mmol/L Normal 136-145 [facility] Comment on above: Performed By: #### C T/NGNA #### [facility] [address] [place] [address] Dr. Donis Mancini Urea nitrogen [Mass/Vol] 10.0 mg/dL Normal 7.0-18.[address] [facility] Comment on above: Performed By: #### C T/NGNA #### [facility] [address] [place] [address] Dr. Donis Mancini Urea nitrogen/Creatinine [Mass ratio] 23.3 mg/mg Normal [facility] Comment on above: Performed By: #### C T/NGNA #### [facility] [address] [place] [address] Dr. Donis Mancini URIC ACID SERUMon 08-09-2022 Urate [Mass/Vol] 3.6 mg/dL Normal 2.6-6.0 [facility] Comment on above: Performed By: #### C T/NGNA #### [facility] [address] [place] [address] Dr. Donis Mancini CBC AUTO DIFFon 08-07-2022 BASO # 0.0 103/ul Normal 0.0-0.[address] [facility] Comment on above: Performed By: #### U AMIC #### [facility] [address] [place] [address] Dr. Donis Mancini Basophils/100 WBC (Bld) 0.2 % Normal 0.2-2.[address] [facility] Comment on above: Performed By: #### U AMIC #### [facility] [address] [place] [address] Dr. Donis Mancini EO # 0.2 103/ul Normal 0.0-0.7 [facility] Comment on above: Performed By: #### U AMIC #### [facility] [address] [place] [address] Dr. Donis Mancini Eosinophils/100 WBC (Bld) 1.8 % Normal 0.9-7.[address] [facility] Comment on above: Performed By: #### U AMIC #### [facility] [address] [place] [address] Dr. Donis Mancini Erythrocyte distribution width (RBC) [Ratio] 12.3 % Normal 11.0-15.[address] [facility] Comment on above: Performed By: #### U AMIC #### [facility] [address] [place] [address] [address] Donis Mancini Hematocrit (Bld) [Volume fraction] 45.7 % Normal 36.0-48.[address] [facility] Comment on above: Performed By: #### U AMIC #### [facility] [address] [place] [address] Dr. Donis Mancini Hemoglobin (Bld) [Mass/Vol] 16.0 g/dL Normal 12.0-16.[address] [facility] Comment on above: Performed By: #### U AMIC #### [facility] [address] [place] [address] Dr. Donis Mancini IG # 0.07 10e3/ul Critically high 0.00-0.03 [facility] Comment on above: Performed By: #### U AMIC #### [facility] [address] [place] [address] Dr. Donis Mancini IG % 0.5 % Normal 0.0-0.[address] [facility] Comment on above: Performed By: #### U AMIC #### [facility] [address] [place] [address] Dr. Donis Mancini LYMPH # 1.5 103/ul Normal 1.2-3.[address] [facility] Comment on above: Performed By: #### U AMIC #### [facility] [address] [place] [address] Dr. Donis Mancini Lymphocytes/100 WBC (Bld) 11.2 % Critically low 20.5-60.[address] [facility] Comment on above: Performed By: #### U AMIC #### [facility] [address] [place] [address] Dr. Donis Mancini MANUAL DIFF REQ NO Normal [facility] Comment on above: Performed By: #### U AMIC #### [facility] [address] [place] [address] Dr. Donis Mancini MCH (RBC) [Entitic mass] 32.0 pg Normal 26.7-34.0 [facility] Comment on above: Performed By: #### U AMIC #### [facility] [address] [place] [address] [address] Donis Mancini MCHC (RBC) [Mass/Vol] 35.0 g/dL Normal 29.9-35.2 [facility] Comment on above: Performed By: #### U AMIC #### [facility] [address] [place] [address] [address] Donis Mancini MCV (RBC) [Entitic vol] 91.4 fL Normal 81.0-99.0 [facility] Comment on above: Performed By: #### U AMIC #### [facility] [address] [place] [address] Dr. Donis Mnacini MONO # 0.9 103/ul Critically high 0.3-0.8 [facility] Comment on above: Performed By: #### U AMIC #### [facility] [address] [place] [address] Dr. Donis Mancini Monocytes/100 WBC (Bld) 6.3 % Normal 1.7-12.0 [facility] Comment on above: Performed By: #### U AMIC #### [facility] [address] [place] [address] Dr. Donis Mancini NEUT # 10.9 103/ul Critically high 1.4-6.5 [facility] Comment on above: Performed By: #### U AMIC #### [facility] [address] [place] [address] Dr. Donis Mancini Neutrophils/100 WBC (Bld) 80.0 % Critically high 43.0-75.0 [facility] Comment on above: Performed By: #### U AMIC #### [facility] [address] [place] [address] Dr. Donis Mancini Platelet mean volume (Bld) [Entitic vol] 11.5 fL Normal 9.5-13.5 [facility] Comment on above: Performed By: #### U AMIC #### [facility] [address] [place] [address] [address] Donis Mancini PLT 182 103/ul Normal 150-450 [facility] Comment on above: Performed By: #### U AMIC #### [facility] [address] [place] [address] [address] Donis Mancini RBC 5.00 106/ul Normal 4.20-5.[address] [facility] Comment on above: Performed By: #### U AMIC #### [facility] [address] [place] [address] [address] Donis Mancini WBC 13.6 103/ul Critically high 4.0-11.0 [facility] Comment on above: Performed By: #### U AMIC #### [facility] [address] [place] [address] [address] Donis Mancini LDHon 08-07-2022 LDH 171 U/L Normal 81-[address] [facility] Comment on above: Performed By: #### C MP, URIC, LDH ####[facility] [address] [place] [address]DrGene Mancini PROF 14(COMP METB)on 022 Albumin [Mass/Vol] 2.9 g/dL Critically low 3.4-5.0 [facility] Comment on above: Performed By: #### C MP, URIC, LDH ####[facility] [address] [place] [address]DrGene Mancini Albumin/Globulin [Mass ratio] 0.6 {ratio} Normal [facility] Comment on above: Performed By: #### C MP, URIC, LDH ####[facility] [address] [place] [address]DrGene Mancini ALP [Catalytic activity/Vol] 192 U/L Critically high 46-[address] [facility] Comment on above: Performed By: #### C MP, URIC, LDH ####[facility] [address] [place] [address]DrGene Mancini ALT [Catalytic activity/Vol] 23 U/L Normal 14-[address] [facility] Comment on above: Performed By: #### C MP, URIC, LDH ####[facility] [address]zkj[address] [place] [phone]. Donis Mancini Anion gap [Moles/Vol] 14.4 mmol/L Normal [facility] Comment on above: Performed By: #### C MP, URIC, LDH ####[facility] [address]yeokbv[address] [place] [address]Dr. Donis Mancini AST [Catalytic activity/Vol] 23 U/L Normal 15-37 [facility] Comment on above: Performed By: #### C MP, URIC, LDH ####[facility] [address] [place] [address]Dr. Donis Mancini Bilirubin [Mass/Vol] 0.2 mg/dL Normal 0.2-1.0 [facility] Comment on above: Performed By: #### C MP, URIC, LDH ####[facility] [address] [place] [address]Dr. Laceyjavi Mancini Calcium [Mass/Vol] 9.4 mg/dL Normal 8.5-10.1 [facility] Comment on above: Performed By: #### C MP, URIC, LDH ####[facility] [address]ibl[address] [place] [address]Dr. Donis Mancini Chloride [Moles/Vol] 104 mmol/L Normal 98-107 [facility] Comment on above: Performed By: #### C MP, URIC, LDH ####[facility] [address]ukmnpbnr[address] [place] [address]Dr. Doins Mancini CO2 [Moles/Vol] 21.7 mmol/L Normal 21.0-32.0 [facility] Comment on above: Performed By: #### C MP, URIC, LDH ####[facility] [address]thylcyc[address] [place] [address]Dr. Donis Mancini Creatinine [Mass/Vol] 0.46 mg/dL Critically low 0.55-1.[address] [facility] Comment on above: Performed By: #### C MP, URIC, LDH ####[facility] [address]fmd[address] [place] [phone]. Donis Live EGFR-AF [place]IZ[place] >60 Normal >=60 [facility] Comment on above: Performed By: #### C MP, URIC, LDH ####[facility] [address]ivdmaul[address] [place] [address]Dr. Donis Mancini EGFR-NON AF CITIZ[place] >60 Normal >=60 [facility] Comment on above: Performed By: #### C MP, URIC, LDH ####[facility] [address]grfxeg[address] [place] [address]Dr. Donis Mancini Globulin (S) [Mass/Vol] 4.6 g/dL Normal [facility] Comment on above: Performed By: #### C MP, URIC, LDH ####[facility] F[address]bfovsxdl[address] [place] [address]Dr. Donis Mancini Glucose [Mass/Vol] 89 mg/dL Normal 74-106 [facility] Comment on above: Performed By: #### C MP, URIC, LDH ####[facility] [address]rlpw[address] [place] [address]Dr. Donis Mancini Potassium [Moles/Vol] 4.1 mmol/L Normal 3.5-5.1 [facility] Comment on above: Performed By: #### C MP, URIC, LDH ####[facility] [address] [place], [place] [address]Dr. Donis Mancini Protein [Mass/Vol] 7.5 g/dL Normal 6.4-8.2 [facility] Comment on above: Performed By: #### C MP, URIC, LDH ####[facility] [address]kezcju[address] [place] [address]Dr. Donis Mancini Sodium [Moles/Vol] 136 mmol/L Normal 136-145 [facility] Comment on above: Performed By: #### C MP, URIC, LDH ####[facility] [address] [place], [place] [address]Dr. Donis Mancini Urea nitrogen [Mass/Vol] 8.0 mg/dL Normal 7.0-18.0 [facility] Comment on above: Performed By: #### C MP, URIC, LDH ####[facility] [address] [place], [place] [address]Dr. Yilan Mancini Urea nitrogen/Creatinine [Mass ratio] 17.4 mg/mg Normal [facility] Comment on above: Performed By: #### C MP, URIC, LDH ####[facility] [address]nsxdlf[address] [place], [place] [address]BcDr. Donis Mancini PROTIMEon 08-07-2022 INR Coag (PPP) [Relative time] {INR} Normal [facility] Comment on above: Performed By: #### U AMIC #### [facility] [address] [place] [address] [address] Donis Mancini INR GUIDELINES SEE BELOW Normal [facility] Comment on above: Result Comment: NICCI RED INR: 2.0 - 3.0 CONDITIONS NOT LISTED BELOW 2.5 - 3.5 FOR PROSTHETIC HEART VALVE REPLACEMENT 2.5 - 3.5 RECURRENT THROMBOSIS Performed By: #### U AMIC #### [facility] [address] [place] [address] Dr. Donis Mancini PT Coag (PPP) [Time] 9.8 s Normal 9.0-11.[address] [facility] Comment on above: Performed By: #### U AMIC #### [facility] [address] [place] [address] Dr. Donis Mancini PTTon 08-07-2022 aPTT Coag (Bld) [Time] 28.5 s Normal 22.3-36.[address] [facility] Comment on above: Performed By: #### U AMIC #### [facility] [address] [place] [address] Dr. Donis Mancini UA (CLEAN/CATCH) LEAD ELECTRICIAN/MICRO I F IND.on 08-07-2022 Bilirubin Ql (U) Negative Normal NEGATIVE [facility] Comment on above: Performed By: #### U AMIC #### [facility] [address] [place] [address] Dr. Donis Mancini Clarity (U) CLEAR Normal CLEAR [facility] Comment on above: Performed By: #### U AMIC #### [facility] [address] [place] [address] Dr. Donis Mancini Color (U) LT. YELLOW Normal YELLOW [facility] Comment on above: Performed By: #### U AMIC #### [facility] [address] [place] [address] [address] Donis Mancini Glucose Ql (U) Negative Normal NEGATIVE [facility] Comment on above: Performed By: #### U AMIC #### [facility] [address] [place] [address] [address] Donis Mancini Hemoglobin Ql (U) Negative Normal NEGATIVE [facility] Comment on above: Performed By: #### U AMIC #### [facility] [address] [place] [address] [address] Donis Mancini Ketones Ql (U) Negative Normal NEGATIVE [facility] Comment on above: Performed By: #### U AMIC #### [facility] [address] [place] [address] [address] Donis Mancini LEUKOCYTES Negative Normal NEGATIVE [facility] Comment on above: Performed By: #### U AMIC #### [facility] [address] [place] [address] [address] Donis Mancini Nitrite Ql (U) Negative Normal NEGATIVE [facility] Comment on above: Performed By: #### U AMIC #### [facility] [address] [address] [address] Donis Mancini pH (U) 7.0 [pH] Normal 5-[address] [facility] Comment on above: Performed By: #### U AMIC #### [facility] [address] [address] [address] Donis Mancini SPEC GRAVITY <=1.005 Abnormal 1.005-<=1.025 [facility] Comment on above: Performed By: #### U AMIC #### [facility] [address] [address] [address] Donis Mancini UA PROTEIN Negative Normal NEGATIVE/ TRACE [facility] Comment on above: Performed By: #### U AMIC #### [facility] [address] [address] [address] Donis Mancini UR MICRO IND NOT INDICATED Normal [facility] Comment on above: Performed By: #### U AMIC #### [facility] [address] [address] [address] Donis Mancini Urobilinogen Qn (U) 0.2 {Sarah'U}/dL Normal 0.2 - 1. [address] [facility] Comment on above: Performed By: #### U AMIC #### [facility] [address] [address] [address] Donis Mancini URIC ACID SERUMon 08-07-2022 Urate [Mass/Vol] 3.8 mg/dL Normal 2.6-6.0 [facility] Comment on above: Performed By: #### C MP, URIC, LDH ####[facility] [address] [address]Dr. Donis Mancini URINE T PROTEIN CREAT RATIOo n 08-07-2022 UR TOTAL PROTEIN <6.0 Normal <=12.0 [facility] Comment on above: Performed By: #### C T/NGNA #### [facility] [address] [address] [address] Donis Mancini URINE CREAT 13.45 mg/dL Critically low 20.00-300.00 [facility] Comment on above: Performed By: #### C T/NGNA #### [facility] [address] [address] [address] Donis Mancini US PREG BIOPHY W [...] by: COCO STERN Date: 2022-08-01 08:[address] [facility] CHLAMYDIA/GONOCOCCUS INESSA (SW AB/URINE/PAPon 07-31-2022 Chlamydia trachomatis, INESSA Negative Normal Negative [facility] Comment on above: Performed By: #### C T/NGNA #### [facility] [address] [address] [address] Donis Mancini Neisseria gonorrhoeae, INESSA Negative Normal Negative [facility] Comment on above: Performed By: #### C T/NGNA #### [facility] [address] [address] [address] Donis Mancini VAGINITIS/VAGINOSIS DNA PROB Domenic 07-31-2022 Mariam species Negative Normal Negative [facility] Comment on above: Performed By: #### V AGINT ####[facility] [address] [address]Dr. Donis Mancini Gardnerella vaginalis Negative Normal Negative [facility] Comment on above: Performed By: #### V AGINT ####[facility] [address] [address]Dr. Donis Mancini Trichomonas vaginalis Negative Normal Negative [facility] Comment on above: Performed By: #### V AGINT ####[facility] [address] [address]DrGene Mancini GROUP B STREP CULTUREon S. agalactiae Ag Ql (Unsp spec) Culture Observations: NEGATIVE FOR GROUP B STREPTOCOCCUS. Normal [facility] Comment on above: Performed By: #### G BSCX #### [facility] [address] [place] [address] Dr. Donis Mancini US PREG BIOPHY W [...] COCO STERN Date: 2022-07-25 09:41 Normal [facility] US PREG GROWTHon 07-11-2022 US PREG GROWTH [...] ESTEFANY BENNETT Date: 2022-07-11 19:28 Normal [facility] Covid-19 PCR (CVDTBH)on 06-26 SARS-CoV-2 (COVID-19) RNA INESSA+probe Ql (Unsp spec) Not detected Normal NOT DETECTED [facility] Comment on above: Result Comment: When diagnostic [...] for this test is supported by the [employer] Supervisor of Health and Human Service's declaration that [...] used). Performed By: #### C T/NGNA #### [facility] [address] [address] [address] Donis Mancini GTT 3 HR PREGon 06-03-2022 Glucose [Mass/Vol] 94 mg/dL Normal 74-106 [facility] Comment on above: Performed By: #### U AMIC #### [facility] [address] [address] [address] Donis Mancini Glucose [Mass/Vol] 147 mg/dL Normal [facility] Comment on above: Performed By: #### U AMIC #### [facility] [address] [address] [address] Donis Mancini Glucose [Mass/Vol] 159 mg/dL Normal [facility] Comment on above: Performed By: #### U AMIC #### [facility] [address] [address] [address] Donis Mancini Glucose [Mass/Vol] 151 mg/dL Normal [facility] Comment on above: Performed By: #### U AMIC #### [facility] [address] [address] [address] Donis Mancini GLUCOSE - 1HRon 05-21-2022 Glucose [Mass/Vol] 141 mg/dL Critically high 74-106 [facility] Comment on above: Performed By: #### U AMIC #### [facility] [address] [address] [address] Donis Mancini HEMOGRAM AND PLATELon 2021 Hematocrit (Bld) [Volume fraction] 39.1 % Normal 36.0-48.[address] [facility] Comment on above: Performed By: #### U AMIC #### [facility] [address] [address] [address] Donis Mancini Hemoglobin (Bld) [Mass/Vol] 13.1 g/dL Normal 12.0-16.[address] [facility] Comment on above: Performed By: #### U AMIC #### [facility] [address] [address] [address] Donis Mancini MCH (RBC) [Entitic mass] 32.3 pg Normal 26.7-34.[address] [facility] Comment on above: Performed By: #### U AMIC #### [facility] [address] [address] [address] Donis Mancini MCHC (RBC) [Mass/Vol] 33.5 g/dL Normal 29.9-35.[address] [facility] Comment on above: Performed By: #### U AMIC #### [facility] [address] [address] [address] Donis Mancini MCV (RBC) [Entitic vol] 96.5 fL Normal 81.0-99.[address] [facility] Comment on above: Performed By: #### U AMIC #### [facility] [address] [place] [address] Dr. Donis Mancini PLT 220 103/ul Normal 150-[address] [facility] Comment on above: Performed By: #### U AMIC #### [facility] [address] [place] [address] Dr. Donis Mancini RBC 4.05 106/ul Critically low 4.20-5.40 [facility] Comment on above: Performed By: #### U AMIC #### [facility] [address] [place] [address] Dr. Donis Mancini WBC 12.8 103/ul Critically high 4.0-11.0 [facility] Comment on above: Performed By: #### U AMIC #### [facility] [address] [place] [address] Dr. Donis Mancini US PREG BIOPHYSICAL NO [...] ESTEFANY BENNETT Date: 2022-05-11 06:25 Normal [facility] CULTURE URINEon 05-10-2022 CULTURE URINE Culture Observations: MODERATE GROWTH OF MIXED GENITAL RAMBO. NO POTENTIAL PATHOGENS SEEN. Normal [facility] Comment on above: Performed By: #### U RCX #### [facility] [address] [address] [address] Donis Mancini UA RANDOM W/MICROSCOPICon BACTERIA LARGE Abnormal NONE SEEN [facility] Comment on above: Performed By: #### U AMIC ####[facility] [address] [address]Dr. Donis Mancini Bilirubin Ql (U) Negative Normal NEGATIVE [facility] Comment on above: Performed By: #### U AMIC ####[facility] [address] [address]Dr. Donis Mancini CAST NONE SEEN Normal NONE SEEN [facility] Comment on above: Performed By: #### U AMIC ####[facility] [address] [address]Dr. Donis Mancini Clarity (U) CLEAR Normal CLEAR [facility] Comment on above: Performed By: #### U AMIC ####[facility] [address] [address]Dr. Donis Mancini Color (U) YELLOW Normal YELLOW [facility] Comment on above: Performed By: #### U AMIC ####[facility] [address] [id number]. Donis Mancini Crystals LM Nom (Urine sed) NONE SEEN Normal NONE SEEN [facility] Comment on above: Performed By: #### U AMIC ####[facility] [address] [id number]. Donis Mancini Epithelial cells LM Ql (Urine sed) MODERATE Abnormal NONE SEEN /RARE [facility] Comment on above: Performed By: #### U AMIC ####[facility] [address] [address]Dr. Donis Mnacini Glucose Ql (U) 250 mg/dl Abnormal NEGATIVE [facility] Comment on above: Performed By: #### U AMIC ####[facility] [address] [address]Dr. Donis Mancini Hemoglobin Ql (U) TRACE-INTACT Abnormal NEGATIVE [facility] Comment on above: Performed By: #### U AMIC ####[facility] [address] [address]Dr. Donis Mancini Ketones Ql (U) Negative Normal NEGATIVE [facility] Comment on above: Performed By: #### U AMIC ####[facility] [address] [place], [place] [address]Dr. Donis Mancini LEUKOCYTES LARGE Abnormal NEGATIVE [facility] Comment on above: Performed By: #### U AMIC ####[facility] [address] [place], [place] [address]Dr. Donis Mancini MUCOUS NONE SEEN Normal NONE SEEN [facility] Comment on above: Performed By: #### U AMIC ####[facility] [address] [place], [place] [address]Dr. Donis Mancini Nitrite Ql (U) Negative Normal NEGATIVE [facility] Comment on above: Performed By: #### U AMIC ####[facility] [address] [place], [place] [address]Dr. Donis Mancini pH (U) 6.0 [pH] Normal 5-[address] [facility] Comment on above: Performed By: #### U AMIC ####[facility] [address] [place], [place] [address]Dr. Donis Mancini RBC 2-5 Abnormal 0-2 [facility] Comment on above: Performed By: #### U AMIC ####[facility] [address] [place], [place] [address]Dr. Donis Mancini SPEC GRAVITY <=1.005 Abnormal 1.005-<=1.025 [facility] Comment on above: Performed By: #### U AMIC ####[facility] [address] [place], [place] [address]Dr. Donis Mancini UA PROTEIN Negative Normal NEGATIVE/ TRACE [facility] Comment on above: Performed By: #### U AMIC ####[facility] [address] [address]Dr. Donis Mancini Urobilinogen Qn (U) 0.2 {Sarah'U}/dL Normal 0.2 - 1. 0 [facility] Comment on above: Performed By: #### U AMIC ####[facility] [address] [address]Dr. Donis Mancini WBC 10-20 Abnormal NONE SEEN [facility] Comment on above: Performed By: #### U AMIC ####[facility] [address] [address]Dr. Donis Mancini CULTURE URINEon 04-27-2022 CULTURE URINE Culture Observations: LIGHT GROWTH OF MIXED GENITAL RAMBO. NO POTENTIAL PATHOGENS SEEN. Normal [facility] Comment on above: Performed By: #### U RCX ####[facility] [address] [place], [place] [address]Dr. Donis Mancini UA (CLEAN/CATCH) LEAD ELECTRICIAN/MICRO I F IND.on 04-27-2022 Bilirubin Ql (U) Negative Normal NEGATIVE [facility] Comment on above: Performed By: #### U ACSIND, ICRO ####[facility] [address] [place], [place] [address]Dr. Donis Mancini Clarity (U) CLEAR Normal CLEAR [facility] Comment on above: Performed By: #### U ACSIND, ICRO ####[facility] [address] [address]Dr. Donis Mancini Color (U) LT. YELLOW Normal YELLOW [facility] Comment on above: Performed By: #### U ACSIND, ICRO ####[facility] [address] [place], [place] [address]Dr. Donis Mancini Glucose Ql (U) Negative Normal NEGATIVE [facility] Comment on above: Performed By: #### U ACSIND, ICRO ####[facility] [address] [address]Dr. Donis Mancini Hemoglobin Ql (U) Negative Normal NEGATIVE [facility] Comment on above: Performed By: #### U ACSIND, UMICRO ####[facility] [address] [address]Dr. Donis Mancini Ketones Ql (U) Negative Normal NEGATIVE [facility] Comment on above: Performed By: #### U NELSON UMICRO ####[facility] [address] [address]Dr. Donis Mancini LEUKOCYTES SMALL Abnormal NEGATIVE [facility] Comment on above: Performed By: #### U NELSON UMICRO ####[facility] [address] [address]Dr. Donis Mancini Nitrite Ql (U) Negative Normal NEGATIVE [facility] Comment on above: Performed By: #### U NELSON ICRO ####[facility] [address] [place], [place] [address]Dr. Donis Mancini pH (U) 7.0 [pH] Normal 5-[address] [facility] Comment on above: Performed By: #### U NELSON ICRO ####[facility] [address] [place], [place] [address]Dr. Donis Mancini SPEC GRAVITY 1.015 Normal 1.005-<=1.025 [facility] Comment on above: Performed By: #### U NELSON ICRO ####[facility] [address] [place], [place] [address]Dr. Donis Mancini UA PROTEIN Negative Normal NEGATIVE/ TRACE [facility] Comment on above: Performed By: #### U NELSON UMICRO ####[facility] [address] [place], [place] [address]Dr. Donis Mancini UR MICRO IND INDICATED Normal [facility] Comment on above: Performed By: #### U NELSON UMICRO ####[facility] [address] [place], [place] [address]Dr. Donis Mancini Urobilinogen Qn (U) 0.2 {Sarah'U}/dL Normal 0.2 - 1. [address] [facility] Comment on above: Performed By: #### U NELSON UMICRO ####[facility] [address] [place], [place] [address]Dr. Donis Mancini URINE MICROSCOPIC ONLYon 08- 02-2022 BACTERIA MODERATE Abnormal NONE SEEN [facility] Comment on above: Performed By: #### U NELSON UMICRO ####[facility] [address] [address]Dr. Donis Mancini Bacteria identified Cx Nom (U) INDICATED Normal [facility] Comment on above: Performed By: #### U ACSWENDY UMICRO ####[facility] [address] [address]Dr. Donis Mancini CAST NONE SEEN Normal NONE SEEN [facility] Comment on above: Performed By: #### U ACSWENDY UMICRO ####[facility] [address] [address]Dr. Donis Mancini Crystals LM Nom (Urine sed) NONE SEEN Normal NONE SEEN [facility] Comment on above: Performed By: #### U ACSWENDY UMICRO ####[facility] [address] [address]Dr. Donis Mancini Epithelial cells LM Ql (Urine sed) MODERATE Abnormal NONE SEEN /RARE [facility] Comment on above: Performed By: #### U ACSWENDY UMICRO ####[facility] [address] [address]Dr. Donis Mancini MUCOUS NONE SEEN Normal NONE SEEN [facility] Comment on above: Performed By: #### U ACSWENDY UMICRO ####[facility] [address] [address]Dr. Donis Mancini RBC NONE SEEN Abnormal 0-2 [facility] Comment on above: Performed By: #### U ACSWENDY UMICRO ####[facility] [address] [address]Dr. Donis Mancini WBC 2-5 Abnormal NONE SEEN [facility] Comment on above: Performed By: #### U ACSWENDY UMICRO ####[facility] [address] [address]Dr. Donis Mancini US KIDNEYSon 04-27-2022 US KIDNEYS [...] ANDREAS AN Date: 2022-04-27 17:48 Normal [facility] CULTURE URINEon 04-16-2022 CULTURE URINE Isolate 1 [...] Trimethoprim/Sulfame thoxazole <=20 S F Normal [facility] Comment on above: Performed By: #### U RCX #### [facility] [address] [place] [address] Dr. Donis Mancini US PREG ANATOMY SINGLEon [...] ESTEFANY BENNETT Date: 2022-04-12 22:22 Normal [facility] UA RANDOM W/MICROSCOPICon BACTERIA SMALL Abnormal NONE SEEN [facility] Comment on above: Performed By: #### U AMIC #### [facility] [address] [place] [address] Dr. Donis Mancini Bilirubin Ql (U) Negative Normal NEGATIVE [facility] Comment on above: Performed By: #### U AMIC #### [facility] [address] [place] [address] Dr. Donis Mancini CAST NONE SEEN Normal NONE SEEN [facility] Comment on above: Performed By: #### U AMIC #### [facility] [address] [address] [address] Donis Mancini Clarity (U) CLEAR Normal CLEAR [facility] Comment on above: Performed By: #### U AMIC #### [facility] [address] [place] [address] Dr. Donis Mancini Color (U) LT. YELLOW Normal YELLOW [facility] Comment on above: Performed By: #### U AMIC #### [facility] [address] [address] [address] Donis Mancini Crystals LM Nom (Urine sed) NONE SEEN Normal NONE SEEN [facility] Comment on above: Performed By: #### U AMIC #### [facility] [address] [address] [address] Donis Mancini Epithelial cells LM Ql (Urine sed) FEW Abnormal NONE SEEN /RARE [facility] Comment on above: Performed By: #### U AMIC #### [facility] [address] [address] [address] Donis Mancini Glucose Ql (U) Negative Normal NEGATIVE [facility] Comment on above: Performed By: #### U AMIC #### [facility] [address] [address] [address] Donis Mancini Hemoglobin Ql (U) Negative Normal NEGATIVE [facility] Comment on above: Performed By: #### U AMIC #### [facility] [address] [address] [address] Donis Mancini Ketones Ql (U) Negative Normal NEGATIVE [facility] Comment on above: Performed By: #### U AMIC #### [facility] [address] [address] [address] Donis Mancini LEUKOCYTES LARGE Abnormal NEGATIVE [facility] Comment on above: Performed By: #### U AMIC #### [facility] [address] [address] [address] Donis Mancini MUCOUS NONE SEEN Normal NONE SEEN [facility] Comment on above: Performed By: #### U AMIC #### [facility] [address] [address] [address] Donis Mancini Nitrite Ql (U) Negative Normal NEGATIVE [facility] Comment on above: Performed By: #### U AMIC #### [facility] [address] [address] [address] Donis Mancini pH (U) 5.5 [pH] Normal 5-9 [facility] Comment on above: Performed By: #### U AMIC #### [facility] [address] [address] [address] Donis Mancini RBC 0-2 Normal 0-2 [facility] Comment on above: Performed By: #### U AMIC #### [facility] [address] [address] [address] Donis Mancini SPEC GRAVITY <=1.005 Abnormal 1.005-<=1.025 [facility] Comment on above: Performed By: #### U AMIC #### [facility] [address] [address] [address] Donis Mancini UA PROTEIN Negative Normal NEGATIVE/ TRACE [facility] Comment on above: Performed By: #### U AMIC #### [facility] [address] [address] [address] Donis Mancini Urobilinogen Qn (U) 0.2 {Sarah'U}/dL Normal 0.2 - 1. [address] [facility] Comment on above: Performed By: #### U AMIC #### [facility] [address] [place] [address] Dr. Donis Mancini WBC 5-10 Abnormal NONE SEEN [facility] Comment on above: Performed By: #### U AMIC #### [facility] [address] [address] [address] Donis Mancini HEP B SURFACE ANTIGEN SCREEN on 01-23-2022 HBsAg Screen Negative Normal Negative [facility] Comment on above: Performed By: #### U AMIC #### [facility] [address] [address] [address] Donis Mancini HEPATITIS C VIRUS AB W/ REFL EX QUANTon 01-23-2022 HCV AB 0.1 s/co ratio Normal 0.0-0.9 [facility] Comment on above: Performed By: #### H CVPCRR ####[facility] [address] [place], [place] [address]Dr. Donis Mancini Interpretation: Comment Normal [facility] Comment on above: Result Comment: Nega tive Not infected with HCV, unless recent infection is suspected or other evidence exists to indicate HCV infection. Performed By: #### H CVPCRR ####[facility] [address] [place], [place] [address]Cd. Donis Mancini HIV 1 AND 2 WITH REFLEXon HIV Screen 4th Generation wRfx Non-Reactive Normal Non Reactive [facility] Comment on above: Result Comment: HIV Negative HIV-1/HIV-2 antibodies and HIV-1 p24 antigen were NOT detected. There is no laboratory evidence of HIV infection. Performed By: #### H IV12 ####[facility] [address] [id number]. Donis Mancini RPR QUANTon 01-23-2022 Rapid Plasma Reagin, Quant Non-Reactive Normal NonRea<1:[address] [facility] Comment on above: Result Comment: Plea se Note: This test does not meet current guidelines for screening and diagnosis of syphilis. This test is intended for following treatment response in patients being treated for syphilis infection. To screen for syphilis infection, a reflex cascade that includes both RPR and a treponema-specific assay should be utilized, such as Treponema pallidum (Syphilis) Screening [place] (113738) or Rapid Plasma Reagin (RPR) Test With Reflex to Quantitative RPR and Confirmatory Treponema pallidum Antibodies (299216). Performed By: #### R PRQ ####[facility] [address] [address]Dr. Donis Mancini RUBELLA AB IGGon 01-23-2022 Rubella Antibodies, IgG 1.60 index Normal Immune >0.[address] [facility] Comment on above: Result Comment: Non- immune <0.90 Equivocal 0.90 - 0.99 Immune >0.99 Performed By: #### U AMIC #### [facility] [address] [place] [address] Dr. Donis Mancini CBC AUTO DIFFon 01-22-2022 BASO # 0.1 103/ul Normal 0.0-0.[address] [facility] Comment on above: Performed By: #### U AMIC #### [facility] [address] [place] [address] Dr. Donis Mancini Basophils/100 WBC (Bld) 0.5 % Normal 0.2-2.[address] [facility] Comment on above: Performed By: #### U AMIC #### [facility] [address] [address] [address] Donis Mancini EO # 0.6 103/ul Normal 0.0-0.7 [facility] Comment on above: Performed By: #### U AMIC #### [facility] [address] [place] [address] Dr. Donis Mancini Eosinophils/100 WBC (Bld) 5.1 % Normal 0.9-7.[address] [facility] Comment on above: Performed By: #### U AMIC #### [facility] [address] [place] [address] Dr. Donis Mancini Erythrocyte distribution width (RBC) [Ratio] 12.0 % Normal 11.0-15.[address] [facility] Comment on above: Performed By: #### U AMIC #### [facility] [address] [place] [address] Dr. Donis Mancini Hematocrit (Bld) [Volume fraction] 45.8 % Normal 36.0-48.[address] [facility] Comment on above: Performed By: #### U AMIC #### [facility] [address] [place] [address] Dr. Donis Mancini Hemoglobin (Bld) [Mass/Vol] 15.3 g/dL Normal 12.0-16.[address] [facility] Comment on above: Performed By: #### U AMIC #### [facility] [address] [place] [address] Dr. Donis Manciin IG # 0.03 10e3/ul Normal 0.00-0.[address] [facility] Comment on above: Performed By: #### U AMIC #### [facility] [address] [place] [address] Dr. Donis Mancini IG % 0.3 % Normal 0.0-0.5 [facility] Comment on above: Performed By: #### U AMIC #### [facility] [address] [place] [address] Dr. Donis Mancini LYMPH # 1.7 103/ul Normal 1.2-3.8 [facility] Comment on above: Performed By: #### U AMIC #### [facility] [address] [address] [address] Donis Mancini Lymphocytes/100 WBC (Bld) 15.9 % Critically low 20.5-60.[address] [facility] Comment on above: Performed By: #### U AMIC #### [facility] [address] [address] [address] Donis Mancini MANUAL DIFF REQ NO Normal [facility] Comment on above: Performed By: #### U AMIC #### [facility] [address] [address] [address] Donis Mancini MCH (RBC) [Entitic mass] 31.5 pg Normal 26.7-34.[address] [facility] Comment on above: Performed By: #### U AMIC #### [facility] [address] [place] [address] Dr. Donis Mancini MCHC (RBC) [Mass/Vol] 33.4 g/dL Normal 29.9-35.2 [facility] Comment on above: Performed By: #### U AMIC #### [facility] [address] [address] [address] Donis Mancini MCV (RBC) [Entitic vol] 94.2 fL Normal 81.0-99.[address] [facility] Comment on above: Performed By: #### U AMIC #### [facility] [address] [address] [address] Donis Mancini MONO # 0.6 103/ul Normal 0.3-0.8 [facility] Comment on above: Performed By: #### U AMIC #### [facility] [address] [address] [address] Donis Mancini Monocytes/100 WBC (Bld) 5.8 % Normal 1.7-12.0 [facility] Comment on above: Performed By: #### U AMIC #### [facility] [address] [address] [address] Donis Mancini NEUT # 7.8 103/ul Critically high 1.4-6.5 [facility] Comment on above: Performed By: #### U AMIC #### [facility] [address] [place], [place] [address] Dr. Donis Mancini Neutrophils/100 WBC (Bld) 72.4 % Normal 43.0-75.[address] [facility] Comment on above: Performed By: #### U AMIC #### [facility] [id number] Donis Mancini Platelet mean volume (Bld) [Entitic vol] 9.9 fL Normal 9.5-13.[address] [facility] Comment on above: Performed By: #### U AMIC #### [facility] [address] [address] [address] Donis Mancini PLT 281 103/ul Normal 150-[address] [facility] Comment on above: Performed By: #### U AMIC #### [facility] [address] [address] [address] Donis Mancini RBC 4.86 106/ul Normal 4.20-5.[address] [facility] Comment on above: Performed By: #### U AMIC #### [facility] [address] [address] [address] Donis Mancini WBC 10.8 103/ul Normal 4.0-11.[address] [facility] Comment on above: Performed By: #### U AMIC #### [facility] [id number] Donis Mancini CULTURE URINEon 01-22-2022 CULTURE URINE Culture Observations: LIGHT GROWTH OF MIXED GENITAL RAMBO. NO POTENTIAL PATHOGENS SEEN. Normal [facility] Comment on above: Performed By: #### U RCX #### [facility] [address] [address] [address] Donis Macnini GLYCOHEMOGLOBIN A1Con 2021 ADA RECOMMENDATION SEE BELOW Normal [facility] Comment on above: Result Comment: ADA RECOMMENDED LIMIT 4.0 - 6.0 ADA THERAPEUTIC TARGET < 7.0 ACTION SUGGESTED > 7.0 Performed By: #### A 1C ####[facility] [address] [address]Dr[address] Donis Mancini Glucose [Mass/Vol] 100 mg/dL Normal [facility] Comment on above: Performed By: #### A 1C ####[facility] [address] [id number]. Donis Mancini HbA1c (Bld) [Mass fraction] 5.1 % Normal 4.5-6.[address] [facility] Comment on above: Performed By: #### A 1C ####[facility] [address] [id number]. Donis Mancini SEAN BOX TEST PT SEND OUTo n 01-22-2022 SENT TO REF LAB 01/22/2022 Normal [facility] Comment on above: Performed By: #### N BOX ####[facility] [address] [id number] Mancini TYPE AND SCREENon 01-22-2022 TYPE AND SCREEN Negative Normal [facility] Comment on above: Performed By: #### T NS #### [facility] [address] [address] [address] Donis Mancini US PREG TVon 01-17-2022 [...] COCO STERN Date: 2022-01-17 09:34 Normal [facility] Provider Letteron 04-06-2021 Provider Letter April 06, 2021 Dear Amber, We have been trying to reach you with no success. It is important that you return our call regarding your appointment upon receiving this letter. Also, at the time of your call, please provide us with your current information. Thank you for your prompt attention to this matter. Sincerely, [facility] [address] [address] [place] [address] [facility] Ambulatory Clinical Summaryo n 03-10-2021 Ambulatory Clinical Summary {[id number]}CD:[id number] [facility] Ambulatory Clinical Summaryo n 03-05-2021 Ambulatory Clinical Summary {[id number]}CD:[id number] [facility] Gynecology Phone Visit- Tele healthon 03-05-2021 Gynecology [...] only communication with the patient located at [address] [place] [address] [place] [phone], with no one else. 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 CODING DATE: 12/18/2020 FINAL [facility] STATUS: Home (Routine DC) PAYOR: [place] ADMIT DX: REASON FOR VISIT DX: U07.1 [...] Galvan CphT Date Saved: 12/18/2020 12:44 pm [facility] Physician Orderon 12-16-2020 Physician Order [id number] [facility] Rapid COVID Antigen ([facility])on 12-16-2020 Rapid COV Int NEG Ctl Pass [facility] Comment on above: Performed By: #### 2 [id number] #### [facility] [address] [place] [address] Rapid COV Int POS Ctl Pass [facility] Comment on above: Performed By: #### 2 [id number] #### [facility] [address] [place] [address] SARS-CoV-2 (COVID-19) RNA INESSA+probe Ql (Unsp spec) Detected Abnormal Not Detected [facility] Comment on above: Result Comment: Left a message for callback. 12/16/2020 11:42:47 EDT Results faxed to infection control. The [employer] for Rapid Detection of SARS-CoV-2 is [...] or revoked sooner. Performed By: #### 2 [id number] #### [facility] [address] [place] [address] Employed in Healthcare Unknown Normal [facility] Comment on above: Performed By: #### 2 [id number] #### [facility] [address] [place] [address] First Test Unknown Normal [facility] Comment on above: Performed By: #### 2 [id number] #### [facility] [address] [place] [address] Hospitalized? NO Normal [facility] Comment on above: Performed By: #### 2 [id number] #### [facility] [address] [place] [address] ICU NO Normal [facility] Comment on above: Performed By: #### 2 [id number] #### [facility] [address] [place] [address] ? Unknown Normal [facility] Comment on above: Performed By: #### 2 [id number] #### [facility] [address] [place] [address] Resides in a [facility] Care Setting Unknown Normal [facility] Comment on above: Performed By: #### 2 [id number] #### [facility] [address] [place] [address] Symptomatic as defined by CDC YES Normal [facility] Comment on above: Performed By: #### 2 [id number] #### [facility] [address] [place] [address] [facility] Clinical Summary {[id number]}CD:[id number] Normal [facility] Vital Signs Date Time Vital Sign Value Performing Clinician Facility 01-14-2025 15:42-0400 Body mass index (BMI) [Ratio] 27.3 kg/m2 [facility] Work Phone: [facility] 01-14-2025 15:42-0400 Body weight 69.91 kg [facility] Work Phone: [facility] 01-14-2025 15:42-0400 Diastolic blood pressure 70 mm[Hg] Mackenzie Michael DO Work Phone: [facility] 01-14-2025 15:42-0400 Systolic blood pressure 120 mm[Hg] Mackenzie Michael DO Work Phone: [facility] 08-20-2024 10:55-0500 Body mass index (BMI) [Ratio] 25.93 kg/m2 Rossana Rachel PA Work Phone: [facility] 08-20-2024 10:55-0500 Body weight 66.41 kg Rossana [place] PA Work Phone: [facility] 08-20-2024 10:55-0500 Diastolic blood pressure 70 mm[Hg] Rossana Rachel PA Work Phone: [facility] 08-20-2024 10:55-0500 Systolic blood pressure 120 mm[Hg] Rossana Leach PA Work Phone: [facility] 08-06-2024 09:38-0500 Body mass index (BMI) [Ratio] 25.47 kg/m2 Mackenzie Michael DO Work Phone: [facility] 08-06-2024 09:38-0500 Body weight 65.23 kg Mackenzie Michael DO Work Phone: [facility] 08-06-2024 09:38-0500 Diastolic blood pressure 70 mm[Hg] Mackenzie Michael DO Work Phone: [facility] 08-06-2024 09:38-0500 Systolic blood pressure 120 mm[Hg] Mackenzie Michael DO Work Phone: [facility] 06-29-2024 09:12-0400 Body mass index (BMI) [Ratio] 24.58 kg/m2 [facility] 06-29-2024 09:12-0400 Body weight 62.94 kg [facility] Nurse [facility] 06-29-2024 09:12-0400 Diastolic blood pressure 72 mm[Hg] [facility] 06-29-2024 09:12-0400 Systolic blood pressure 122 mm[Hg] [facility] Nurse [facility] 12-26-2022 13:45-0400 Body height 160.02 cm Jennifer Huston Other [facility] Other 12-26-2022 13:45-0400 Body mass index (BMI) [Ratio] 27.45 kg/m2 Jennifer Huston Other [facility] Other 12-26-2022 13:45-0400 Body temperature 97 [degF] Jennifer Huston Other [facility] Other 12-26-2022 13:45-0400 Body weight 70.31 kg Jennifer Huston Other [facility] Other 12-26-2022 13:45-0400 Diastolic blood pressure 89 mm[Hg] Jennifer Huston Other [facility] Other 12-26-2022 13:45-0400 Respiratory rate 18 /min Jennifer Huston Other [facility] Other 12-26-2022 13:45-0400 SaO2% (BldA) [Mass fraction] 100 % Jennifer Huston Other [facility] Other 12-26-2022 13:45-0400 Systolic blood pressure 135 mm[Hg] Jennifer Betzaida Other [employer] Other Encounters Encounter Date Encounter Type Care Provider Facility Start: 02-20-2025 End: 02-20-2025 Bamboo flowsheet Rossana BISWAS Work Phone: [facility] Start: 02-20-2025 End: 02-20-2025 Bamboo flowsheet Rossana BISWAS Work Phone: [facility] Start: 01-14-2025 End: 01-14-2025 flow sheet Mackenzie Michael DO Work Phone: [facility] Comment on above: 13 weeks gestation o f ; Second trimester Start: 01-14-2025 End: 01-14-2025 ambulatory MACKENZIE MICHAEL Not Available Start: 01-14-2025 End: 01-14-2025 Bamboo flowsheet Mackenzie Michael DO Work Phone: [facility] Start: 01-14-2025 End: 01-14-2025 Bamboo flowsheet Mackenzie Michael DO Work Phone: [facility] Start: 01-05-2025 End: 01-05-2025 Clinisync Result Encounter Mackenzie Michael DO Work Phone: [facility] Unsolicited Start: 01-05-2025 End: 01-05-2025 Clinisync Result Encounter Mackenzie Michael DO Work Phone: [facility] Unsolicited Start: 12-14-2024 End: 12-14-2024 ambulatory MACKENZIE MICHAEL [...] Start: 08-10-2024 End: 08-10-2024 ambulatory PHYSICIAN NO [facility] Work Phone: Start: 08-10-2024 End: 08-10-2024 Departed Referred PHYSICIAN NO [facility] Start: 08-06-2024 End: 08-06-2024 Bamboo flowsheet [...] 7w1d Start: 06-29-2024 End: 06-29-2024 ambulatory MACKENZIE DCO Not Available Start: 12-26-2022 Office outpatient ne w 20 minutes Jennifer Huston [facility] Start: 12-26-2022 End: 12-26-2022 ambulatory Jennifer Huston Other [facility] Other Start: 12-26-2022 End: 12-26-2022 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 Jennifer Huston Work Phone: [facility] Work Phone: [...] Date Procedure Procedure Detail Performing Clinician Start: 01-14-2025 Urnls dip stick/tabl et rgnt non-auto w/o micrscp Mackenzie Michael DO Work Phone: Start: 01-05-2025 ALL CBC WITH AUTO DIFF Mackenzie Michael DO Work Phone: Start: 11-21-2024 [facility] PREG QUANT HCG Core y Michael DO Work Phone: Start: 11-19-2024 [facility] PREG QUANT HCG Core y Michael DO Work Phone: Start: 08-18-2024 [facility] PREG QUANT HCG Core y Michael DO Work Phone: Start: 08-10-2024 ALL CBC WITH AUTO DIFF Mackenzie Michael DO Work Phone: Start: 08-10-2024 [facility] PREG QUANT HCG Core y Michael DO Work Phone: Start: 07-21-2024 ALL CBC WITH AUTO DIFF Maceknzie Michael DO Work Phone: Start: 07-21-2024 [facility] DRUG SCREEN RAPI D (URINE) [facility] DO Work Phone: Start: 06-29-2024 End: 06-29-2024 Urnls dip stick/tablet rgnt non-auto w/o micrscp [facility] DO Work Phone: Start: 12-26-2022 Plain X-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 hand 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 Jennifer Huston Work Phone: Start: 11-02-2022 Cytp cerv/vag auto t hin layer prep mnl screen [facility] DO Work Phone: Start: 08-10-2022 Delivery of [...] Treatment Date Care Activity Detail Author Start: 05-27-2025 Influenza vaccination Influenz a Vaccine (Season Ended) [facility] Start: 02-20-2025 End: 02-20-2025 Patient encounter procedure [facility] Comment on above: Arrived Start: 01-14-2025 End: 01-14-2025 Patient encounter procedure [facility] Comment on above: Arrived Start: 12-14-2024 End: 12-14-2024 ambulatory 12/14/2024 9:00 AM EDT Initial [facility] [address] [facility] [place] [phone] [facility] Start: 12-14-2024 End: 12-14-2024 Professional / ancillary services management 12/14/2024 8:30 AM EDT Ancillary Procedure [facility] [address] [facility] [place] [phone] [facility] Start: 08-20-2024 End: 08-20-2024 Patient encounter procedure 08/20/2024 10:20 AM EST Office Visit [facility] [address] [facility] [place] [phone] Rossana Leach PA [address] [place] [address] [facility] Start: 08-06-2024 End: 08-06-2024 Patient encounter procedure 08/06/2024 9:10 AM EST Routine [facility] [address] [place] [phone] Mackenzie Rodriguez DO [address] [place] [place] [address] [facility] Start: 06-29-2024 End: 06-29-2025 ABO/Rh ABO/Rh Lab Routine Missed menses , unspecified gestational age Expected: 06/29/2024 (Approximate), Expires: 06/29/2025 [facility] Comment on above: Expected: 06/29/2024 (Approximate), Expires: 06/29/2025 Start: 06-29-2024 End: 06-29-2025 Blood type and Indirect antibody screen panel - Blood Type and screen Lab Routine Missed menses , unspecified gestational age Expected: 06/29/2024 (Approximate), Expires: 06/29/2025 [facility] Work Phone: Comment on above: Expected: 06/29/2024 (Approximate), Expires: 06/29/2025 Start: 06-29-2024 End: 06-29-2025 Drugs of abuse panel - Urine by Screen method Rapid drug screen, urine Lab Routine , unspecified gestational age Encounter for supervision of normal first in first trimester Expected: 06/29/2024 (Approximate), Expires: 06/29/2025 [facility] Comment on above: Expected: 06/29/2024 (Approximate), Expires: 06/29/2025 Start: 06-29-2024 End: 06-29-2025 US Pelvis transvaginal US OB transvaginal Imaging Routine Missed menses Expected: 06/29/2024 (Approximate), Expires: 06/29/2025 [facility] Comment on above: Expected: 06/29/2024 (Approximate), Expires: 06/29/2025 Start: 05-27-2024 Influenza vaccination Influenza Vacc ine (#1) [facility] Bacteria identified in Urine by Culture Urine culture Microbiology Routine Missed menses Ordered: 06/29/2024 [facility] Comment on above: Ordered: 06/29/2024 CBC W Auto Different ial panel - Blood CBC and differential Lab Routine Missed menses , unspecified gestational age Ordered: 06/29/2024 [facility] Comment on above: Ordered: 06/29/2024 Hemoglobin A1c/Hemoglobin.total in Blood Hemoglobin A1c Lab Routine Missed menses , unspecified gestational age Ordered: 06/29/2024 [facility] Comment on above: Ordered: 06/29/2024 Hepatitis B virus surface Ag [Presence] in Serum or Plasma by Immunoassay Hepatitis B surface antigen Lab Routine Missed menses , unspecified gestational age Ordered: 06/29/2024 [facility] Comment on above: Ordered: 06/29/2024 Hepatitis C virus Ab [Presence] in Serum or Plasma by Immunoassay Hepatitis C antibody Lab Routine Missed menses , unspecified gestational age Ordered: 06/29/2024 [facility] Comment on above: Ordered: 06/29/2024 HIV-1/HIV-2 antigen/antibody combination immunoassay HIV-1 and HIV-2 antibodies Lab Routine Missed menses , unspecified gestational age Ordered: 06/29/2024 [facility] Comment on above: Ordered: 06/29/2024 Reagin Ab [...] [employer] [place] [id number] 2023-Present [address] [place] [address] [id number] 2023 Medicaid (Managed Care) [employer] [id number] 2021 Blue Cross Blue Shield 1.2.8 [id number] 2021 Unknown BCBS BCBS [id number] 2021-Present [phone] [address] [place] [address] [id number]. 7.3.682993.315 2001 Unknown [id number] 2.16.840.1.209782.3.579.2. 593 2001 Unknown [id number] 2.16.840.1.060332.3.579.2. 593 2001 Unknown [id number] 2.16.840.1.195595.3.579.2. 593 2001 Unknown [id number] 2.16.840.1.746256.3.579.2. 593 2001 Unknown [id number] 2.16.840.1.279956.3.579.2. 593 2001 Unknown [id number] 2.16.840.1.316239.3.579.2. 593 2001 Unknown [id number] 2.16.840.1.230524.3.579.2. 593 2001 Unknown [id number] 2.16840.1.052248.3.579.2. 593 2001 Unknown [id number] 2.840.1.958524.3.579.2. 593 2001 Unknown [id number] 2.16840.1.441587.3.579.2. 593 2001 Unknown [id number] 2.16840.1.977652.3.579.2. 593 2001 Unknown [id number] 2.16840.1.510775.3.579.2. 593 2001 Unknown [id number] 2.840.1.972289.3.579.2. 593 2001 Unknown [id number] 2.16840.1.658121.3.579.2. 593 2001 Unknown [id number] 2.16840.1.587382.3.579.2. 593 2001 Unknown [id number] 2.16840.1.390582.3.579.2. 593 2001 Unknown [id number] 2.16840.1.420360.3.579.2. 593 2001 Unknown [id number] 2.16.840.1.468607.3.579.2. 593 2001 Unknown [id number] 2.16.840.1.182847.3.579.2. 593 2001 Unknown [id number] 2.16.840.1.951052.3.579.2. 593 2001 Unknown [id number] 2.16.840.1.129205.3.579.2. 593 2001 Unknown [id number] 2.16.840.1.413399.3.579.2. 1259 2001 Unknown [id number] 2.16.840.1.999373.3.579.2. 1259 2001 Unknown [id number] 2.16.840.1.720548.3.579.2. 9 2001 Unknown [id number] 2.16.840.1.715338.3.579.2. 9 2001 Unknown [id number] 2.16.840.1.120282.3.579.2. 1259 2001 Unknown [id number] 2.16.840.1.134076.3.579.2. 1259 1959 Self-pay 1959 Unknown [id number] 1959 Unknown [id number] Unknown [id number] 2.16.840.1.364701.3.579.2. 593 Unknown [id number] 2.16.840.1.069019.3.579.2. 531 Social History Date Type Detail Facility Start: 10-13-2023 End: 06-29-2024 Sex Assigned At [facility] Other Start: 2000 Sex Assigned At Female [facility] Start: 10-13-2023 [facility] Start: 06-29-2024 End: 01-14-2025 Alcoholic beverage intake Current drinker of alcohol (finding) [facility] Start: 10-13-2023 End: 06-29-2024 History of Social function [facility] Start: 05-24-2024 [facility] Start: 2001 Sex assigned at Not on file [facility] if ever smoked [facility] Work Phone: Start: 08-11-2024 Sex Female (finding) [facility] History of Present illness Narrative 01-14-2025 Diamond Borja LPN - 01/14/2025 3:40 PM EDT Note Date & Type Note Facility 01-14-2025 History of Presen t illness Narrative Reason for Appointment: Patient ID: Ambre Funes is a 24 y.o. female who presents for Routine Visit Patient presents today for Return OB appointment. MEDICATIONS Current Outpatient Medications Medication Instructions loratadine (CLARITIN) 10 mg, Daily Vit-DSS-Fe Fum-FA ( 19) 29-1 MG tablet 1 each, Every 24 hours progesterone (ENDOMETRIN) 100 mg, 2 times daily ALLERGIES No Known Allergies PROBLEMS Active Ambulatory [...] nursing note reviewed. 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 Vitals: Estimated body mass index is 27.3 kg/m as calculated from the following: Height as of 01/06/23: 5' 3 . Weight as of this encounter: 154 lb 1.9 oz. BP: 120/70 Patient's last menstrual period was 10/15/2024 (exact date). ASSESSMENT & PLAN ICD-10-CM 1. 13 weeks gestation of Z3A.13 POCT urinalysis dipstick manually resulted 2. Second trimester Z34.92 POCT urinalysis dipstick manually resulted New OB: Patient presents today for 1st time obstetrics appointment with provider. Patient is currently 13w0d . Patients history has been reviewed in great detail including any potential risks. Patient stated she currently has no complaints. Expectations throughout regarding labs, ultrasounds, and appointments have been discussed with the patient in detail. It was reiterated that the patient is to drink 6-8 glasses of water a day, eat 6 small meals a day, do not consume raw or undercooked meat, and stay away from [facility]. Patient has been consulted regarding any further do's and don'ts of . Patient voiced understanding and all questions and concerns were answered. Patient is able to discontinue vaginal progesterone at this time. Orders Placed This Encounter Procedures POCT urinalysis dipstick manually resulted Follow Up: Patient is to return in 4 weeks for routine OB appointment. Documented by Diamond Borja LPN on behalf of: Mackenzie Rodriguez DO documented in this encounter [facility] History of Present illness Narrative 08-20-2024 TRUE [...] having a D&C Hysteroscopy performed at [facility] with Dr. Rodriguez. Pathology results was reviewed with the patient in great detail and all restrictions have been lifted. Follow Up: Patient is to return to the office for annual exam unless needed otherwise. Documented by TRUE Argueta on behalf of: TRUE Argueta documented in this encounter [facility] History of Present illness Narrative 08-06-2024 Diamond Borja LPN - 08/06/2024 9:10 AM EST Note Date [...] nursing note reviewed. 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 Vitals: Estimated body mass index is [...] vaginal bleeding. Patient to discuss date with Pool Attendant prior to leaving. Patient is able to [...] or undercooked meat, and stay away from [facility]. Patient has also been advised to not [...] by: Whitney Peacock documented in this encounter [facility] Evaluation note 12-26-2022 Note Date [...] appointment to be seen soon as possible [facility] Other Evaluation note Note Date & Type Note Facility Evaluation note No assessment information availa [facility] Work Phone: Evaluation note Note Date & Type Note Facility Evaluation note Diagnosis Missed menses , unspecified gestational age Encounter for supervision of normal first in first trimester Nausea Nausea alone 7 weeks gestation of documented in this encounter [facility] Evaluation note Note Date & Type Note Facility Evaluation note Diagnosis Miscarriage Unspecified spontaneous without mention of complication documented in this encounter [facility] Evaluation note Note Date & Type Note Facility Evaluation note Diagnosis Postoperative examination Follow-up examination, following unspecified surgery documented in this encounter [facility] Evaluation note Note Date & Type Note Facility Evaluation note Diagnosis 13 weeks gestation of Second trimester state, incidental documented in this encounter [facility] Summary Purpose Family History No Family History Records FoundNo Family History Records FoundNo Family History Records FoundNo Family History Records Found Advance Directives Advance Directive Response Recorded Date/ Time Advance Directives No December 27 6:21am Additional Source Comments INFORMATION SOURCE (unrecogn ized section and content) DATE CREATED AUTHOR 09/24/2021 Marcum Gilbert [facility] DATE CREATED AUTHOR AUTHOR'S ORGANIZ ATION 12/07/2022 [facility] DATE CREATED AUTHOR AUTHOR'S ORGANIZ ATION 08/15/2024 [facility] DATE CREATED AUTHOR AUTHOR'S ORGANIZ ATION 01/15/2025 [facility] EPIC REASON FOR VISIT (unrecogniz ed section and content) Reason Comments Initial Visit Reason Comments Miscarriage Reason Comments Post-op Visit Reason Comments Routine Visit Care Teams (unrecognized sec tion and content) Team Status: Inactive Member Role Status Dates Jennifer Huston , 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 Attending Provider Active Shoe Lining Fitter Relationship Specialty Start Date End Date Vaishali Zapata MD [address] [place] [address] PCP - General Family Medicine 02/04/23 Shoe Lining Fitter Relationship Specialty Start Date End Date Vaishali Zapata MD [address] [place] [address] PCP - General Family Medicine 02/04/23 Team Status: Active Member Role Status Dates PHYSICIAN NO FAMILY Primary Care Provider Active Team Status: Inactive Member Role Status Dates PHYSICIAN NO FAMILY Primary Care Provider Active Start: August 10, 2024 End: August 10, 2024 Mackenzie Rodriguez DO Attending Provider Active Start : August 10, 2024 End: August 10, 2024 Shoe Lining Fitter Relationship Specialty Start Date End Date Unallocated, Akils MD Gilda [address] [place] [address] PCP - General Family Medicine 08/03/24 Shoe Lining Fitter Relationship Specialty Start Date End Date Unallocated, Rey Vo MD [address] [facility] [place] [address] PCP - General [facility] 08/03/24 Shoe Lining Fitter Relationship Specialty Start Date End Date Unallocated, Rey Vo MD [address] [place] [address] PCP - [facility] 08/03/24 Shoe Lining Fitter Relationship Specialty Start Date End Date Unallocated, Rey Vo MD [address] [place] [address] PCP - [facility] 08/03/24 Shoe Lining Fitter Relationship Specialty Start Date End Date Unallocated, Rey Vo MD [address] [facility] [place] [address] PCP - [facility] 08/03/24 Goals (unrecognized section and content) Goals [...] BE BASED ON THE PRIMARY CLINICAL RECORDS. [facility]. provides no warranty or guarantee of the accuracy or completeness of information in this document.
== END 2025-02-20 20:06 | disposition home or self-care (01) ==
LOC: LAB 20:05
PROVIDERS: PCP Nurse Practitioner Family; Visit Provider Physician Assistant
DX: Z01.419 Encounter for gynecological examination (general) (routine) without abnormal findings (principal)
CPT/HCPCS: 88175

== ENCOUNTER 2025-03-08 18:58 | Outpatient (OUT) | payer BC, OTHER, SELFPAY ==
--- OUTSIDE RECORDS SUMMARY | 2024-06-05 04:30 | XMS_ITS ---
Author Organization [facility] in [place] Address [address] [place] [address] Care Team Providers Care Ambulatory Service Representative Name Role Phone Jennifer Butts Primary Care [...] 06/05/2024 Encounters Encounter Location Date Provider Diagnosis [facility] [address] [place] [address] 06/05/2024 Jennifer Butts Z33.1 and Wellness examination [...] Amber PIZANO MDOB: [birth year] (24 yo F)Acc No.[id number]:06/05/2024 New Patient Patient: Amber MADERA Provider: Lashawn Butts ([facility]), FLATWORK FOLDER :2000 A ge:24 Y S ex:Female Date:06/05/2024 Address:[address] [place] [address] Check In:08:08 AM ESTCheck O ut:08:44 AM [...] old 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 (Check Out) true * Provider: Lashawn Butts ([facility]), FLATWORK FOLDER Date: 0 06/05/2024 Generated for Yolisi ng/Famariig/eTransmitting on: 0 03/08/2025 07:01 PM EDT History and Physical Notes * HPI (History of Present Illness) Category Sub-Category Detail Notes Category Not es General OBGYN Michael , have 2 year old 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
--- OUTSIDE RECORDS SUMMARY | 2025-03-08 19:02 | XMS_ITS | Clinical Summary ---
Author Organization [facility] Address [address] [place] [address] Care Team Providers Care Toll Line Repairer Name Role Phone Unallocated, Noms Provider MD Primary Care Provi krissy Allergies No known [...] Encounters Date Type Department Care Team Description 03/06/2025 Orders Only [facility] [address] [place] [address] Kavitha Almanza MA 02/20/2025 3:40 PM EDT Routine [facility] [address] [place] [address] Rossana Ramos PA Screening, , for anatomic survey ([facility]); Well woman exam with routine gynecological exam; STD exposure; Second trimester ([facility]); 18 weeks gestation of ([facility]); Urinary frequency 02/20/2025 Clinisync Result Encounter NOM[facility] External Department Unsolicited Rossana Ramos PA 02/20/2025 External Result Encounter NOMS External Department Unsolicited Rossana Ramos PA 02/20/2025 Bamboo flowsheet [facility] [address] [place] [address] Rossana Ramos PA 01/14/2025 3:40 PM EDT Routine [facility] [address] [place] [address] Jose Rodriguez, 13 weeks gestation of ([facility]); Second trimester ([facility]) 01/14/2025 Bamboo flowsheet [facility] [address] [place] [address] Jose Rodriguez DO 01/05/2025 Clinisync Result Encounter NOMS External Department Unsolicited Jose Rodriguez, 12/14/2024 9:00 AM EDT Initial [facility] [address] [place] [address] [place]: [id number] 12/14/2024 8:30 AM EDT Ancillary Procedure [facility] [address] [place] [address] Missed menses 12/13/2024 Travel from Last 3 [...] AM EDT Routine [facility] [address] [place] [id number] Jose Rodriguez, DO [address] [facility] [address] [place] [address] Health Maintenance Due Date Last Done Comments Influenza Vaccine (Season Ended) 2025 08/28/20 03, 07/26/2003 Procedures Procedure Name Priority Date/Time Associated Diagnosis Comments RECURRENT VAGINITIS (HTRX) Routine 02/20/2025 4:33 PM EDT URINARY TRACT INFECTION (HTRX) Routine 02/20/2025 4:30 PM EDT POCT URINALYSIS DIPSTICK Routine 02/20/2025 4:18 PM EDT 18 weeks gestation of ([facility]) IGP,APTIMA HPV,AGE GDLN Routine 02/20/2025 3:50 PM EDT PAP SMEAR Routine 02/20/2025 12:00 AM EDT POCT URINALYSIS DIPSTICK Routine 01/14/2025 3:50 PM EDT 13 weeks gestation of ([facility]) Second trimester ([facility]) HBSAG SCREEN Routine 01/05/2025 10:06 AM EDT [...] menses from Last 3 Months Results * RECURRENT VAGINITIS (HTRX) (02/20/2025 4:33 PM EDT) ATOPOBIUM VAGINAE 0.000 19.961 - 24.689 ppm 02/22/2025 6:32 AM EDT [facility] ATOPOBIUM VAGINAE Not Detected 19.961 - 24.689 ppm 02/22/2025 6:32 AM EDT [facility] BVAB 2,3 (BACTERIAL VAGINOSIS ASSOCIATED BACTERIA 2, 3); MOBILUNCUS SPP 0.000 19.961 - 24.689 ppm 02/22/2025 6:32 AM EDT [facility] BVAB 2,3 (BACTERIAL VAGINOSIS ASSOCIATED BACTERIA 2, 3); MOBILUNCUS SPP Not Detected .961 - 24.689 ppm 02/22/2025 6:32 AM EDT [facility] SIMEON ALBICANS, PARAPSILOSIS, TROPICALIS 0.000 19.961 - 30.770 ppm 02/22/2025 6:32 AM EDT [facility] SIMEON ALBICANS, PARAPSILOSIS, TROPICALIS Not Detected 19.961 - 30.770 ppm 02/22/2025 6:32 AM EDT [facility] SIMEON GLABRATA 0.000 23.000 - 32.138 ppm 02/22/2025 6:32 AM EDT [facility] SIMEON GLABRATA Not Detected 23.000 - 32.138 ppm 02/22/2025 6:32 AM EDT [facility] SIMEON KRUSEI 0.000 23.000 - 32.271 ppm 02/22/2025 6:32 AM EDT [facility] SIMEON KRUSEI Not Detected 23.000 - 32.271 ppm 02/22/2025 6:32 AM EDT [facility] CHLAMYDIA TRACHOMATIS 0.000 23.000 - 31.467 ppm 02/22/2025 6:32 AM EDT [facility] CHLAMYDIA TRACHOMATIS Not Detected 23.000 - 31.467 ppm 02/22/2025 6:32 AM EDT [facility] GARDNERELLA VAGINALIS 0.000 19.961 - 24.689 ppm 02/22/2025 6:32 AM EDT [facility] GARDNERELLA VAGINALIS Not Detected 19.961 - 24.689 ppm 02/22/2025 6:32 AM EDT [facility] MEGASPHAERA (TYPES 1, 2) 0.000 19.961 - 24.689 ppm 02/22/2025 6:32 AM EDT [facility] MEGASPHAERA (TYPES 1, 2) Not Detected 19.961 - 24.689 ppm 02/22/2025 6:32 AM EDT [facility] NEISSERIA GONORRHOEAE 0.000 23.000 - 32.117 ppm 02/22/2025 6:32 AM EDT [facility] NEISSERIA GONORRHOEAE Not Detected 23.000 - 32.117 ppm 02/22/2025 6:32 AM EDT [facility] TRICHOMONAS VAGINALIS 0.000 23.000 - 32.119 ppm 02/22/2025 6:32 AM EDT [facility] TRICHOMONAS VAGINALIS Not Detected 23.000 - 32.119 ppm 02/22/2025 6:32 AM EDT [facility] MYCOPLASMA GENITALIUM 0.000 19.961 - 24.689 ppm 02/22/2025 6:32 AM EDT [facility] MYCOPLASMA GENITALIUM Not Detected 19.961 - 24.689 ppm 02/22/2025 6:32 AM EDT [facility] Tissue 02/20/2025 4:33 PM EDT 02/22/2025 1:53 AM EDT us Rossana BISWAS LAB BLOOD ORDERABLES Final Resul t [facility] [address] [place] [address] * URINARY TRACT INFECTION (HTRX) (02/20/2025 4:30 PM EDT) ACINETOBACTER BAUMANII 0.000 19.961 - 24.689 ppm 02/22/2025 6:52 AM EDT [facility] ACINETOBACTER BAUMANII Not Detected 19.961 - 24.689 ppm 02/22/2025 6:52 AM EDT [facility] CITROBACTER FREUNDII 0.000 23.000 - 31.881 ppm 02/22/2025 6:52 AM EDT [facility] CITROBACTER FREUNDII Not Detected 23.000 - 31.881 ppm 02/22/2025 6:52 AM EDT [facility] ENTEROBACTER AEROGENES, CLOACAE 0.000 23.000 - 31.535 ppm 02/22/2025 6:52 AM EDT [facility] ENTEROBACTER AEROGENES, CLOACAE Not Detected 23.000 - 31.535 ppm 02/22/2025 6:52 AM EDT [facility] ENTEROCOCCUS FAECALIS, FAECIUM 0.000 26.000 - 31.575 ppm 02/22/2025 6:52 AM EDT [facility] ENTEROCOCCUS FAECALIS, FAECIUM Not Detected 26.000 - 31.575 ppm 02/22/2025 6:52 AM EDT [facility] ESCHERICHIA COLI 0.000 23.000 - 28.500 ppm 02/22/2025 6:52 AM EDT [facility] ESCHERICHIA COLI Not Detected 23.000 - 28.500 ppm 02/22/2025 6:52 AM EDT [facility] KLEBSIELLA PNEUMONIAE, OXYTOCA 0.000 23.000 - 30.500 ppm 02/22/2025 6:52 AM EDT [facility] KLEBSIELLA PNEUMONIAE, OXYTOCA Not Detected 23.000 - 30.500 ppm 02/22/2025 6:52 AM EDT [facility] MORGANELLA MORGANII 0.000 19.961 - 24.689 ppm 02/22/2025 6:52 AM EDT [facility] MORGANELLA MORGANII Not Detected 19.961 - 24.689 ppm 02/22/2025 6:52 AM EDT [facility] PROTEUS MIRABILIS, VULGARIS 0.000 23.000 - 28.500 ppm 02/22/2025 6:52 AM EDT [facility] PROTEUS MIRABILIS, VULGARIS Not Detected 23.000 - 28.500 ppm 02/22/2025 6:52 AM EDT [facility] PSEUDOMONAS AERUGINOSA 0.000 23.000 - 28.500 ppm 02/22/2025 6:52 AM EDT [facility] PSEUDOMONAS AERUGINOSA Not Detected 23.000 - 28.500 ppm 02/22/2025 6:52 AM EDT [facility] STAPHYLOCOCCUS AUREUS 0.000 26.000 - 30.902 ppm 02/22/2025 6:52 AM EDT [facility] STAPHYLOCOCCUS AUREUS Not Detected 26.000 - 30.902 ppm 02/22/2025 6:52 AM EDT [facility] STREPTOCOCCUS AGALACTIAE (GROUP B STREP) 0.000 26.000 - 32.222 ppm 02/22/2025 6:52 AM EDT [facility] STREPTOCOCCUS AGALACTIAE (GROUP B STREP) Not Detected 26.000 - 32.222 ppm 02/22/2025 6:52 AM EDT [facility] SIMEON ALBICANS, PARAPSILOSIS, TROPICALIS 0.000 19.961 - 30.770 ppm 02/22/2025 6:52 AM EDT [facility] SIMEON ALBICANS, PARAPSILOSIS, TROPICALIS Not Detected 19.961 - 30.770 ppm 02/22/2025 6:52 AM EDT [facility] SIMEON GLABRATA 0.000 23.000 - 32.138 ppm 02/22/2025 6:52 AM EDT [facility] SIMEON GLABRATA Not Detected 23.000 - 32.138 ppm 02/22/2025 6:52 AM EDT [facility] SIMEON KRUSEI 0.000 23.000 - 32.271 ppm 02/22/2025 6:52 AM EDT [facility] SIMEON KRUSEI Not Detected 23.000 - 32.271 ppm 02/22/2025 6:52 AM EDT [facility] SERRATIA MARCESCENS 0.000 23.000 - 31.204 ppm 02/22/2025 6:52 AM EDT [facility] SERRATIA MARCESCENS Not Detected 23.000 - 31.204 ppm 02/22/2025 6:52 AM EDT [facility] STREPTOCOCCUS PYOGENES (GROUP A STREP) 0.000 19.961 - 24.689 ppm 02/22/2025 6:52 AM EDT [facility] STREPTOCOCCUS PYOGENES (GROUP A STREP) Not Detected 19.961 - 24.689 ppm 02/22/2025 6:52 AM EDT [facility] STAPHYLOCOCCUS EPIDERMIDIS, HAEMOLYTICUS, LUGDUNENSIS, SAPROPHYTICUS (URINA 0.000 19.961 - 24.689 ppm 02/22/2025 6:52 AM EDT [facility] STAPHYLOCOCCUS EPIDERMIDIS, HAEMOLYTICUS, LUGDUNENSIS, SAPROPHYTICUS (URINA Not Detected 19.961 - 24.689 ppm 02/22/2025 6:52 AM EDT [facility] STAPHYLOCOCCUS EPIDERMIDIS, HAEMOLYTICUS, LUGDUNENSIS, SAPROPHYTICUS (URINA 0.000 19.961 - 24.689 ppm 02/22/2025 6:52 AM EDT [facility] STAPHYLOCOCCUS EPIDERMIDIS, HAEMOLYTICUS, LUGDUNENSIS, SAPROPHYTICUS (URINA Not Detected 19.961 - 24.689 ppm 02/22/2025 6:52 AM EDT [facility] Urine 02/20/2025 4:30 PM EDT 02/22/2025 1:52 AM EDT us Rossana BISWAS LAB BLOOD ORDERABLES Final Resul t [facility] [address] [place] [address] * (ABNORMAL) POCT urinalysis dipstick manually resulted (02/20/2025 4:18 PM EDT) Only the most recent of3 resultswithin the time period is included. Color, UA Yellow Clarity, UA Clear Glucose, UA Negative Negative - 1999(110) ++++ mg/dL Bilirubin, UA Negative Negative - 4(70) +++ mg/dL Ketones, UA Negative Negative - 160(16) ++++ mg/dL Spec Grav, UA 1.010 1 - 1.03 Blood, UA Negative Negative - 50 Jason/mcL pH, UA 7.0 5 - 9 Protein, UA Negative Negative - 1999(20) ++++ mg/dL Urobilinogen, UA 0.2 0.2 - 12 mg/dL Leukocytes, UA Negative Negative - 500+++ Carlos/mcL Nitrite, UA Negative Negative - Positive Urine 02/20/2025 4:18 PM EDT Rossana BISWAS POINT OF CARE TEST ENTER/EDIT OR DERABLES Final Result * IGP,APTIMA HPV,AGE GDLN (02/20/2025 3:50 PM EDT) AGE GDLN ACOG TESTING Note . [facility] Comment: TESTS RESULT FLAG UNITS REF RANGE LAB Clinician Provided Cytology Information Source.............Endocervix No. of containers..01 ThinPrep Vial Age Algo ACOG Yris... FLAG LEGEND: L-Low Normal,H-High Normal,LL-Alert Low,HH-Alert High <-Panic Low,>-Panic High,A-Abnormal,AA-Critical Abnormal Performed at: 01 [facility] [address] [place] [address] Jenise Byrne MD, IGP, RFX APTIMA HPV ASCU Note . [facility] Comment: TESTS RESULT FLAG UNITS REF RANGE LAB DIAGNOSIS: 02 NEGATIVE FOR INTRAEPITHELIAL LESION OR MALIGNANCY. Specimen adequacy: 02 Satisfactory for evaluation. Endocervical and/or squamous metaplastic cells (endocervical component) are present. Performed by: 02 Whitney Alvarez, Structural Metal Worker ([facility]) . 02 Note: Note 02 The Pap smear is a screening test designed to aid in the detection of premalignant and malignant conditions of the uterine cervix. It is not a diagnostic procedure and should not be used as the sole means of detecting cervical cancer. Both false-positive and false-negative reports do occur. Test Methodology: Note 02 This liquid based ThinPrep(R) pap test was screened with the use of an image guided system. . 02 The HPV DNA reflex criteria were not met with this specimen result therefore, no HPV testing was performed. FLAG LEGEND: L-Low Normal,H-High Normal,LL-Alert Low,HH-Alert High <-Panic Low,>-Panic High,A-Abnormal,AA-Critical Abnormal Performed at: [address] [address] Jenise Byrne MD, Performed at: =G - [facility] [address] [id number] Real Estate Transaction Manager: Jenise Byrne MD, Phone: [phone] Performed at: [facility] [address] [id number] Real Estate Transaction Manager: Jenise Byrne MD, Phone: [phone] 02/20/2025 3:50 PM EDT 02/20/2025 9:13 PM EDT Narrative CLINISYNC - 02/23/2025 1:08 PM EDT SPATULA-ALONE ENDOCERVIX us Rossana BISWAS LAB BLOOD ORDERABLES Final Resul t Performing Organization Address City/[facility]/ZIP Co de Phone Number [facility] * Pap Smear (02/20/2025 12:00 AM EDT) Swab Cervical swab / Unknown Rossana BISWAS LAB CYTOLOGY ORDERABLES Final Re sult Performing Organization Address [facility] Co de Phone Number EXTERNAL LAB * BOX TEST (01/05/2025 10:06 AM EDT) Pathologist [facility] BOX TEST SENT OUT [facility] BOX1 [facility] BOX2 01-05-25 [facility] 01/05/2025 10:0 6 AM EDT 01/05/2025 10:22 AM EDT Narrative CLINISYNC - 01/05/2025 10:58 AM EDT UNITY BOX us Jose Michael DO LAB BLOOD ORDERABLES Final Resul t Performing Organization Address [facility] de Phone Number [facility] * HBSAG SCREEN (01/05/2025 10:06 AM EDT) Pathologist [facility] HBSAG SCREEN Negative Negative [facility] Comment: Performed at: [address] [id number] Real Estate Transaction Manager: Andrew Harris PhD, Phone: [phone] 01/05/2025 10:0 6 AM EDT 01/05/2025 10:22 AM EDT Narrative CLINISYNC - 01/06/2025 4:08 PM EDT us Jose Michael DO LAB BLOOD ORDERABLES Final Resul t Performing Organization Address [facility] Co de Phone Number [facility] * RAPID PLASMA REAGIN, QUANT (01/05/2025 10:06 AM EDT) Pathologist [facility] RAPID PLASMA REAGIN, QUANT Non Reactive NonRea<1: 1 titer [facility] Comment: Please Note: This test does not meet current guidelines for screening and diagnosis of syphilis. This test is intended for following treatment response in patients being treated for syphilis infection. To screen for syphilis infection, a reflex cascade that includes both RPR and a treponema-specific assay should be utilized, such as Treponema pallidum (Syphilis) Screening [place] (624239) or Rapid Plasma Reagin (RPR) Test With Reflex to Quantitative RPR and Confirmatory Treponema pallidum Antibodies (592359). Performed at: [address] [id number] Real Estate Transaction Manager: Andrew Harris PhD, Phone: [phone] 01/05/2025 10:0 6 AM EDT 01/05/2025 10:22 AM EDT Narrative CLINISYRI - 01/06/2025 4:08 PM EDT Jose Michael DO LAB BLOOD ORDERABLES Final Resul t Performing Organization Address [facility] Co de Phone Number [facility] * HIV AB/P24 AG WITH REFLEX (01/05/2025 10:06 AM EDT) HIV AB/P24 AG SCREEN Non Reactive Non Reactive [facility] Comment: HIV-1/HIV-2 antibodies and HIV-1 p24 antigen were NOT detected. There is no laboratory evidence of HIV infection. HIV Negative Performed at: [address] [id number] Real Estate Transaction Manager: Andrew Harris PhD, Phone: [phone] 01/05/2025 10:0 6 AM EDT 01/05/2025 10:22 AM EDT Narrative CLINISYNC - 01/06/2025 11:08 AM EDT us Jose Michael DO LAB BLOOD ORDERABLES Final Resul t Performing Organization Address City/[facility] Co de Phone Number [facility] * HCV ANTIBODY RFX TO QUANT PCR (01/05/2025 10:06 AM EDT) HCV AB Non Reactive Non Reactive TB INTERPRETATION: Comment . TB Comment: Not infected with HCV unless early or acute infection is suspected (which may be delayed in an immunocompromised individual), or other evidence exists to indicate HCV infection. Performed at: - [address] [id number] Real Estate Transaction Manager: Andrew Harris PhD, Phone: [phone] 01/05/2025 10:0 6 AM EDT 01/05/2025 10:22 AM EDT Narrative CLINISYNC - 01/06/2025 12:07 PM EDT us Jose Michael DO LAB BLOOD ORDERABLES Final Resul t [facility] TB * MLR HEMOGLOBIN A1C (01/05/2025 10:06 AM EDT) Pathologist [facility] GLYCOHEMOGLOBIN A1C 5.0 4.5 - 6.2 % [facility] Comment: ADA RECOMMENDED LIMIT 4.0 - 6.0 ADA THERAPEUTIC TARGET < 7.0 ACTION SUGGESTED > 7.0 ESTIMATED AVERAGE GLUCOSE 97 mg/dL TB 01/05/2025 10:0 6 AM EDT 01/05/2025 10:22 AM EDT Narrative CLINISYNC - 01/05/2025 10:41 AM EDT us Jose Michael DO CLINISYNC Final Result Performing Organization Address City/[facility]/ZIP Co de Phone Number [facility] * ALL TYPE AND SCREEN (01/05/2025 10:06 AM EDT) Pathologist [facility] BLOOD TYPE A Positive [facility] ANTIBODY SCREEN NEGATIVE [facility] 01/05/2025 10:0 6 AM EDT 01/05/2025 10:22 AM EDT Narrative CLINISYNC - 01/05/2025 12:[address] [facility] , us Jose Michael DO CLINISYNC Final Result [facility]IN[facility]NC TB * ALL RUBELLA IGG AB (01/05/2025 10:06 AM EDT) Pathologist [facility] RUBELLA ANTIBODIES, IGG 1.57 Immune >0.99 index [facility] Comment: Non-immune <0.90 Equivocal 0.90 - 0.99 Immune >0.99 Performed at: [facility] [address] [id number] Real Estate Transaction Manager: Andrew Harris PhD, Phone: [phone] 01/05/2025 10:0 6 AM EDT 01/05/2025 10:22 AM EDT Narrative CLINISYNC - 01/06/2025 12:07 PM EDT us Jose Michael DO CLINISYNC Final Result [facility] * (ABNORMAL) ALL CBC WITH AUTO DIFF (01/05/2025 10:06 AM EDT) [facility] TB WBC 9.2 4.0 - 11.0 10 3/uL TBH TBH RBC 4.65 4.20 - 5.40 10 6/uL [facility] TB HGB 14.7 12.0 - 16.0 g/dL TB TB HCT 42.5 36.0 - 48.0 % TBH TB MCV 91.4 81.0 - 99.0 fL TBH TB MCH 31.6 26.7 - 34.0 pg TBH TB MCHC 34.6 29.9 - 35.2 g/dL TB TB RDW 12.3 11.0 - 15.0 % TBH TBH PLT 216 150 - 450 10 3/uL TBH TB MPV 10.1 9.5 - 13.5 fL TBH [...] us Jose Michael DO CLINISYNC Final Result [facility] * TB DRUG SCREEN RAPID (URINE) (01/05/2025 9:38 AM EDT) CANNABINOID SCREEN URINE NEGATIVE NEGATIVE TBH PHENCYCLIDINE [...] AM EDT 01/05/2025 10:22 AM EDT Narrative [facility] - 01/05/2025 10:47 AM EDT us Jose Michael DO CLINISYNC Final Result [facility] * (ABNORMAL) POCT , urine manually resulted [...] II, MD, PHD at 14-Dec-2024 08:35:59 PM [facility] Procedure Note Radha Poe MD - [...] POE II, MD, PHDat 14-Dec-2024 08:35:59 PM [facility] us Jose Rodriguez DO IMG OB US PROCEDURES Final Resul t from Last 3 Months Insurance BS [employer] Care Teams Toll Line Repairer Relationship Specialty Start Date End Date Unallocated, Noms Provider, [address] [place] [address] PCP - General Family Medicine 08/03/24
--- OUTSIDE RECORDS SUMMARY | 2025-03-08 19:02 | XMS_ITS | Encounter Summary ---
Author Organization [facility] Address [address] [place] [address] Care Team Providers Care Commercial Print Salesman Name Role Phone Vaishali Zapata MD Primary Care Provider Bipin cheng Unallocated, Noms Provider Primary Care Provi krissy Encounter Details Date Type Department Care Team (Late st Contact Info) Description 06/28/2024 Abstract [facility] B[facility] OB [address] [place] [address] Jose Rodriguez DO [address] [place], [facility]11 Social History Tobacco Use Types Packs/Day Years [...] Routine [facility] [address] [place] [address] Jose Rodriguez DO [address] [place] [address] documented as of this encounter Visit Diagnoses Not on filedocumented in this encounter Care Teams Commercial Print Salesman Relationship Specialty Start Date End Date Vaishali Zapata MD [address] [place] [address] PCP - General Family Medicine 02/04/23 08/02/24 Unallocated, Noms Provider, [address] [place] [address] PCP - General Family Medicine 08/03/24 documented as of this encounter
--- OUTSIDE RECORDS SUMMARY | 2025-03-08 19:02 | XMS_ITS | Encounter Summary ---
Author Organization [facility] Address [address] [place] [address] Care Team Providers Care Personal Lines Account Executive Name Role Phone Unallocated, Noms Provider Primary Care Provi krissy Encounter Details Date Type Department Care Team (Late st Contact Info) Description 02/20/2025 Clinisync Result Encounter [facility] External Department Unsolicited Rossana Ramos PA [address] [place] [address] Social History Tobacco Use Types Packs/Day Years [...] Routine [facility] [address] [place] [id number] Jose Rodriguez, DO [address] [place] [address] [phone] (work) documented as of this encounter Procedures Procedure Name Priority Date/Time Associated Diagnosis Comments IGP,APTIMA HPV,AGE GDLN Routine 02/20/2025 3:50 PM EDT documented in this encounter Results * IGP,APTIMA HPV,AGE GDLN (02/20/2025 3:50 PM EDT) AGE GDLN ACOG TESTING Note . [facility] Comment: TESTS RESULT FLAG UNITS REF RANGE LAB Clinician Provided Cytology Information Source.............Endocervix No. of containers..01 ThinPrep Vial Age Algo ACOG Yris... FLAG LEGEND: L-Low Normal,H-High Normal,LL-Alert Low,HH-Alert High <-Panic Low,>-Panic High,A-Abnormal,AA-Critical Abnormal Performed at: 01 [facility] [place] [address] Jenise Byrne MD, IGP, RFX APTIMA HPV ASCU Note . [facility] Comment: TESTS RESULT FLAG UNITS REF RANGE LAB DIAGNOSIS: 02 NEGATIVE FOR INTRAEPITHELIAL LESION OR MALIGNANCY. Specimen adequacy: 02 Satisfactory for evaluation. Endocervical and/or squamous metaplastic cells (endocervical component) are present. Performed by: Hussein Alvarez, [employer] ([facility]) . 02 Note: Note 02 The [...] <-Panic Low,>-Panic High,A-Abnormal,AA-Critical Abnormal Performed at: [address] [place] [address] Jenise Byrne MD, Performed at: = - [facility] [id number] Subscription Clerk: Jenise Byrne MD, Phone: [phone] Performed at: [address] [id number] Subscription Clerk: Jenise Byrne MD, Phone: [phone] 02/20/2025 3:50 PM EDT 02/20/2025 9:13 PM EDT Narrative [facility] - 02/23/2025 1:08 PM EDT [facility] ENDOCERVIX us Rossana BISWAS LAB BLOOD ORDERABLES Final Resul t [facility] TB documented in this encounter Visit Diagnoses Not on filedocumented in this encounter Care Teams Personal Lines Account Executive Relationship Specialty Start Date End Date Unallocated, Noms Provider, [address] [place] [address] PCP - General Family Medicine 08/03/24 documented as of this encounter
--- OUTSIDE RECORDS SUMMARY | 2025-03-08 19:02 | XMS_ITS | Encounter Summary ---
Author Organization [facility] Address [address] [place] [address] Care Team Providers Care Master Welder Name Role Phone Unallocated, Noms Provider Primary Care Provi krissy Encounter Details Date Type Department Care Team (Late Contact Info) Description 08/10/2024 Abstract [facility] [address] [facility] [place] [id number] Jose Rodriguez, [address] [place], [facility] Social History Tobacco Use Types Packs/Day [...] [place] [address] Jose Rodriguez, DO [facility] [address] [place], [place] [id number] documented as of this encounter Visit Diagnoses Not on filedocumented in this encounter Care Teams Master Welder Relationship Specialty Start Date End Date Unallocated, Noms Provider, [address] [place] [address] PCP - General Family Medicine 08/03/24 documented as of this encounter
--- OUTSIDE RECORDS SUMMARY | 2025-03-08 19:02 | XMS_ITS | CCD ---
Author Organization [facility] Care Team Providers Care Chief Operator Reformer Name Role Phone MICHAEL ., DR MANN [...] Unavailable MISC, DR DOMINIQUE Primary Care Unavailable PANGBURN, DR COCO Danielle Consulting Unavailable MICHAEL ., DR MANN Consulting Unavailable MICHAEL ., DR MANN Admitting Unavailable MICHAEL ., DR MANN Attending Unavailable MISC, DR DOMINIQUE Primary Care Unavailable MICHAEL ., DR MANN Consulting Unavailable MCIHAEL ., DR MANN Admitting Unavailable MICHAEL ., DR MANN Attending Unavailable MISC, DR DOMINIQUE Primary Care Unavailable PANGBURN, DR COCO Danielle Consulting Unavailable MICHAEL ., [...] Jennifer Huston Unavailable JEFFERY Huston Attending Provider [phone] Vaishali Zapata MD Primary Care Provider Unavai lable NO FAMILY, PHYSICIAN Primary Care Provider Unava ilable Jose Rodriguez DO Attending Provider Unallocated Rey GREENBERG Provider Primary Care Provi krissy NO FAMILY, PHYSICIAN Primary Care Unavailable Jose Rodriguez Attending Unavailable Jose Rodriguez Admitting Unavailable JOSE RODRIGUEZ Attending Unavailable JOSE RODRIGUEZ Attending Unavailable ROSSANA LEACH Attending Unavailable ROSSANA LEACH Attending Unavailable Medications [...] / zinc oxide 20 mg oral tablet (7 sources) Vitamin B12, Vitamin D, Vitamin C take 1 tablet by mouth once daily Vit-DSS-Fe Fum-FA ( 19) 29-1 MG tablet Take 1 each by mouth 1 (one) time each day at the same time Active loratadine 10 mg oral tablet (7 sources) take 1 tablet by mouth once [...] source) Active progesterone 100 mg vaginal insert (7 sources) Progesterone progesterone (Endometrin) 100 MG vaginal [...] thumb, initial encounter for closed fracture Episodic Genitourinary symptoms and ill-defined conditions (3 sources) Personal history of urinary (tract) infections; Translations: [Increased frequency of urination] Onset: 08-25-2022 02-20-2025 Episodic Hypertension complicating ; childbirth and the puerperium (4 sources) Unspecified maternal hypertension, complicating the puerperium; Translations: [UNSPEC MATERNAL HTN COMP PUERPERIUM] Onset: 08-16-2022 Chronic Immunizations and screening for infectious disease (4 sources) Encounter for screening for human papillomavirus (HPV); Translations: [Contact with and (suspected) exposure to infections with a predominantly sexual mode of transmission] Onset: 01-27-2022 02-20-2025 Episodic Menstrual disorders (5 sources) Irregular menstruation, [...] finger(s) Episodic Other and delivery including normal (20 sources) Single live ; Translations: [Encounter for supervision of other normal , third trimester] Onset: 01-18-2022 Episodic Other screening for suspected conditions (not mental disorders or infectious disease) (16 sources) Encounter for screening for malignant neoplasm of cervix; Translations: [Encounter for screening for diabetes mellitus] Onset: 01-27-2022 Episodic Residual codes; unclassified (1 source) Gestation period, 7 weeks; Translations: [Less than 8 weeks gestation of ] 06-29-2024 Episodic Residual codes; unclassified (2 sources) Gestation period, 13 weeks; Translations: [13 weeks gestation of ] 01-14-2025 Episodic Residual codes; unclassified (2 sources) Gestation period, 18 weeks; Translations: [18 weeks gestation of ] 02-20-2025 Episodic Spontaneous (2 sources) Miscarriage; Translations: [Complete [...] in , unspecified control] Onset: 07-07-2022 Episodic OB-related trauma to perineum and vulva [...] Test Name Value Interpretation Reference Range Facility IGP,APTIMA HPV,AGE GDLNon AGE GDLN ACOG TESTING Note . [facility] Comment on above: TESTS RESULT FLAG UN ITS REF RANGE LAB Clinician Provided Cytology Information Source.............Endocervix No. of containers..01 ThinPrep Vial Age Algo ACOG Yris... FLAG LEGEND: L-Low Normal,H-High Normal,LL-Alert Low,HH-Alert High <-Panic Low,>-Panic High,A-Abnormal,AA-Critical Abnormal Performed at: 01 =G [address] [address] Jenise Byrne MD, IGP, RFX APTIMA HPV ASCU Note . [facility] Comment on above: TESTS RESULT FLAG UN ITS REF RANGE LAB DIAGNOSIS: 02 NEGATIVE FOR INTRAEPITHELIAL LESION OR MALIGNANCY. Specimen adequacy: 02 Satisfactory for evaluation. Endocervical and/or squamous metaplastic cells (endocervical component) are present. Performed by: Hussein Alvarez, Melt House Supervisor ([facility]) . 02 Note: Note 02 The Pap [...] <-Panic Low,>-Panic High,A-Abnormal,AA-Critical Abnormal Performed at: [address] [address] Jenise Byrne MD, Performed at: = - [facility] [id number] C Consultant: Jenise Byrne MD, Phone: [phone] Performed at: [facility] [address] [id number] C Consultant: Jenise Byrne MD, Phone: [phone] SPATULA-ALONE ENDOCERVIX [facility] Health[facility] e RECURRENT VAGINITIS (HTRX)on 02-22-2025 ATOPOBIUM VAGINAE 0 [facility] ATOPOBIUM VAGINAE Not detected [facility] BVAB 2,3 (BACTERIAL VAGINOSIS ASSOCIATED BACTERIA 2, 3); MOBILUNCUS SPP 0 [facility] BVAB 2,3 (BACTERIAL VAGINOSIS ASSOCIATED BACTERIA 2, 3); MOBILUNCUS SPP Not detected [facility] SIMEON ALBICANS, PARAPSILOSIS, TROPICALIS 0 [facility] SIMEON ALBICANS, PARAPSILOSIS, TROPICALIS Not detected [facility] SIMEON GLABRATA 0 [facility] SIMEON GLABRATA Not detected [facility] S[facility]ON KRUSEI 0 [facility] S[facility]ON KRUSEI Not detected [facility] CHLAMYDIA TRACHOMATIS 0 [facility] CHLAMYDIA TRACHOMATIS Not detected [facility] GARDNERELLA VAGINALIS 0 [facility] GARDNERELLA VAGINALIS Not detected [facility] MEGASPHAERA (TYPES 1, 2) 0 [facility] MEGASPHAERA (TYPES 1, 2) Not detected [facility] MYCOPLASMA GENITALIUM 0 [facility] MYCOPLASMA GENITALIUM Not detected [facility] NEISSERIA GONORRHOEAE 0 [facility] NEISSERIA GONORRHOEAE Not detected [facility] TRICHOMONAS VAGINALIS 0 [facility] TRICHOMONAS VAGINALIS Not detected [facility] Urinalysis macro (dipstick) panel (U)on 02-20-2025 Bilirubin, UA Negative Negative - 4(70) +++ mg/dL [facility] Blood, UA Negative Negative - 50 Jason/mcL [facility] Clarity, UA Clear [facility] Color, UA Yellow [facility] Health[facility] Glucose, UA Negative Negative - 1999(110) ++++ mg/dL [facility] Interpretation and review of laboratory results Abnormal [facility] Ketones, UA Negative Negative - 160(16) ++++ mg/dL [facility] Leukocytes, UA Negative Negative - 500+++ Carlos/mcL [facility] Nitrite, UA Negative Negative - Positive [facility] pH, UA 7 5 - 9 [facility] Health[facility] e Protein, UA Negative Negative - 1999(20) ++++ mg/dL [facility] Spec Grav, UA 1.01 1 - 1.03 [facility] Urobilinogen, UA 0.2 0.2 - 12 mg/dL [facility] Urinalysis macro (dipstick) panel (U)on 01-14-2025 Bilirubin, UA Negative Negative - 4(70) +++ mg/dL [facility] Blood, UA Positive Negative - 50 Jason/mcL [facility] Comment on above: trace-intact Clarity, UA Clear [facility] Color, UA Yellow [facility] Health[facility] Glucose, UA Negative Negative - 1999(110) ++++ mg/dL [facility] Interpretation and review of laboratory results Abnormal [facility] Ketones, UA Negative Negative - 160(16) ++++ mg/dL [facility] Leukocytes, UA Negative Negative - 500+++ Carlos/mcL [facility] Nitrite, UA Negative Negative - Positive [facility] pH, UA 6 5 - 9 [facility] Protein, UA Negative Negative - 2000(20) ++++ mg/dL [facility] Spec Grav, UA 1.005 1 - 1.03 [facility] Urobilinogen, UA 0.2 0.2 - 12 mg/dL [facility] e ALL CBC WITH AUTO DIFFon BASOPHILS ABSOLUTE AUTO 0 [facility] Basophils/100 WBC (Bld) 0.4 % 0.2 - 2.0 % [facility] Eosinophils/100 WBC (Bld) 1.7 % 0.9 - 7.0 % [facility] Erythrocyte distribution width (RBC) [Ratio] 12.3 % 11.0 - 15.0 % [facility] Hematocrit (Bld) [Volume fraction] 42.5 % 36.0 - 48.0 % [facility] Hemoglobin (Bld) [Mass/Vol] 14.7 g/dL 12.0 - 16.0 g/dL [facility] IMMATURE GRANULOCYTES ABS AUTO 0.02 [facility] Immature granulocytes/100 WBC (Bld) 0.2 % 0.0 - 0.5 % [facility] Interpretation and review of laboratory results Abnormal [facility] LYMPHOCYTES ABSOLUTE AUTO 1.4 [facility] Lymphocytes/100 WBC (Bld) 15.4 % Low 20.5 - 60.0 % [facility] MCH (RBC) [Entitic mass] 31.6 pg 26.7 - 34.0 pg [facility] MCHC (RBC) [Mass/Vol] 34.6 g/dL 29.9 - 35.2 g/dL [facility] MCV (RBC) [Entitic vol] 91.4 fL 81.0 - 99.0 fL [facility] MONOCYTES ABSOLUTE AUTO 0.5 [facility] Monocytes/100 WBC (Bld) 5.4 % 1.7 - 12.0 % [facility] NEUTROPHILS ABSOLUTE AUTO 7 High [facility] Neutrophils/100 WBC (Bld) 76.9 % High 43.0 - 75.0 % [facility] Platelet mean volume (Bld) [Entitic vol] 10.1 fL 9.5 - 13.5 fL [facility] EO # 0.2 [facility] [...] II, MD, PHD at 14-Dec-2024 08:35:59 PM [facility] Normal Not Available Comment on above: Order Comment: US OB TRANSVAGINAL No LMP recorded. TBH PREG QUANT HCGon 025 HCG QUANTITATIVE 30893 mIU/mL [facility] Comment on above: 5-50 0.2-1 WEEK 50-500 1-2 WEEKS 100-5,000 2-3 WEEKS 500-10,000 3-4 WEEKS 1,000-50,000 4-5 WEEKS 10,000-100,000 5-6 WEEKS 15,000-200,000 6-8 WEEKS 10,000-100,000 2-3 MONTHS [facility] Healthcar e TBH PREG QUANT HCGon 11-19-2 025 HCG QUANTITATIVE 6254 mIU/mL [facility] l[facility]care Comment on above: 5-50 0.2-1 WEEK 50-500 1-2 WEEKS 100-5,000 2-3 WEEKS 500-10,000 3-4 WEEKS 1,000-50,000 4-5 WEEKS 10,000-100,000 5-6 WEEKS 15,000-200,000 6-8 WEEKS 10,000-100,000 2-3 MONTHS [facility] Health[facility] e TBH PREG QUANT HCGon 08-18- 024 HCG QUANTITATIVE 6 mIU/mL [facility] Comment on above: 5-50 0.2-1 WEEK 50-500 1-2 WEEKS 100-5,000 2-3 WEEKS 500-10,000 3-4 WEEKS 1,000-50,000 4-5 WEEKS 10,000-100,000 5-6 WEEKS 15,000-200,000 6-8 WEEKS 10,000-100,000 2-3 MONTHS [facility] ALL CBC WITH AUTO DIFFon BASOPHILS ABSOLUTE AUTO 0 [facility] Basophils/100 WBC (Bld) 0.5 % 0.2 - 2.0 % [facility] Eosinophils/100 WBC (Bld) 6.2 % 0.9 - 7.0 % [facility] Erythrocyte distribution width (RBC) [Ratio] 11.9 % 11.0 - 15.0 % [facility] Hematocrit (Bld) [Volume fraction] 43.8 % 36.0 - 48.0 % [facility] Hemoglobin (Bld) [Mass/Vol] 14.8 g/dL 12.0 - 16.0 g/dL [facility] IMMATURE GRANULOCYTES ABS AUTO 0.02 [facility] Immature granulocytes/100 WBC (Bld) 0.2 % 0.0 - 0.5 % [facility] LYMPHOCYTES ABSOLUTE AUTO 2 [facility] Lymphocytes/100 WBC (Bld) 22.1 % 20.5 - 60.0 % [facility] MCH (RBC) [Entitic mass] 31.7 pg 26.7 - 34.0 pg [facility] MCHC (RBC) [Mass/Vol] 33.8 g/dL 29.9 - 35.2 g/dL [facility] MCV (RBC) [Entitic vol] 93.8 fL 81.0 - 99.0 fL [facility] MONOCYTES ABSOLUTE AUTO 0.5 [facility] Monocytes/100 WBC (Bld) 5.3 % 1.7 - 12.0 % [facility] NEUTROPHILS ABSOLUTE AUTO 5.8 [facility] Neutrophils/100 WBC (Bld) 65.7 % 43.0 - 75.0 % [facility] Platelet mean volume (Bld) [Entitic vol] 10 fL 9.5 - 13.5 fL [facility] Healthc are TBH EO # 0.6 [facility] PLT 236 [facility] RBC 4.67 [facility] WBC 8.9 [facility] Health[facility] e Nidio 08-10-2024 L Specimen: [id number] Received: 08/10/24 Status: CAROL Hoang Num: [id number] Spec Type: Surgical Subm Dr: Jose Rodriguez Tissues: A Products of Conception - Spontaneous or Missed (CONTENTS OF CONCEPT Procedures: HE/2, Gross/Micro L4 Age/ Patient Sex Location Account Attending Physician Amber Funes / LABELL [id number] Jose Rodriguez SPEC NUM: [id number] RECD: 08/10/24 STATUS: CAROL HOANG NUM: [id number] CAROLIN: 08/10/[address] [facility] [address]: Jose Rodriguez ENTERED: 08/10/[address]: Rafia,Lab SPEC TYPE: Surgical DEPT: MONICA ALTMAN ENTERED BY: [id number] RECV BY: [id number] ORDERED: HE/2, Gross/Micro L4 ORDERED: HE/2, Gross/Micro [...] villi and decidua. No tissue is identified. Publishing Systems Analyst sections of the chorionic villi are submitted in cassette A1 with personal service representative sections of the decidua is submitted in cassette A2. (2, ss, [id number]) CPT Codes 14909 Specimen: [id number] Received: 08/10/24-1501 Status: CAROL Hoang Num: [id number] Spec Type: Surgical Subm Dr: Jose Rodriguez Tissues: A Products of Conception - Spontaneous or Missed (CONTENTS OF CONCEPT Procedures: /2, Gross/Micro L4 Patient: Amber Funes [id number] (Continued) Signed (signature on file) Josh Aragon MD 08/13/24 0284 Normal [facility] TB PREG QUANT HCGon 08-10- 024 HCG QUANTITATIVE 240 mIU/mL [facility] Comment on above: 5-50 0.2-1 WEEK 50-500 1-2 WEEKS 100-5,000 2-3 WEEKS 500-10,000 3-4 WEEKS 1,000-50,000 4-5 WEEKS 10,000-100,000 5-6 WEEKS 15,000-200,000 6-8 WEEKS 10,000-100,000 2-3 MONTHS [facility] ALL CBC WITH AUTO DIFFon BASOPHILS ABSOLUTE AUTO 0.1 [facility] Basophils/100 WBC (Bld) 0.5 % 0.2 - 2.0 % [facility] Eosinophils/100 WBC (Bld) 2.8 % 0.9 - 7.0 % [facility] Erythrocyte distribution width (RBC) [Ratio] 11.9 % 11.0 - 15.0 % [facility] Hematocrit (Bld) [Volume fraction] 44.7 % 36.0 - 48.0 % [facility] Health[facility] e Hemoglobin (Bld) [Mass/Vol] 15.3 g/dL 12.0 - 16.0 g/dL [facility] IMMATURE GRANULOCYTES ABS AUTO 0.03 [facility] Immature granulocytes/100 WBC (Bld) 0.3 % 0.0 - 0.5 % [facility] Interpretation and review of laboratory results Abnormal [facility] LYMPHOCYTES ABSOLUTE AUTO 1.6 [facility] Lymphocytes/100 WBC (Bld) 14.9 % Low 20.5 - 60.0 % [facility] MCH (RBC) [Entitic mass] 31.7 pg 26.7 - 34.0 pg [facility] MCHC (RBC) [Mass/Vol] 34.2 g/dL 29.9 - 35.2 g/dL [facility] MCV (RBC) [Entitic vol] 92.7 fL 81.0 - 99.0 fL [facility] MONOCYTES ABSOLUTE AUTO 0.4 [facility] Monocytes/100 WBC (Bld) 3.7 % 1.7 - 12.0 % [facility] NEUTROPHILS ABSOLUTE AUTO 8.2 High [facility] Neutrophils/100 WBC (Bld) 77.8 % High 43.0 - 75.0 % [facility] Platelet mean volume (Bld) [Entitic vol] 10 fL 9.5 - 13.5 fL [facility] EO # 0.3 [facility] TBH PLT 263 [facility] TB RBC 4.82 [facility] TB WBC 10.6 [facility] No Panel Informationon 07-21 [facility] TB DRUG SCREEN RAPID (URINE )on 07-21-2024 AMPHETAMINE SCREEN URINE Negative NEGATIVE [facility] BARBITURATES SCREEN URINE Negative NEGATIVE [facility] BENZODIAZEPINES SCREEN URINE Negative NEGATIVE [facility] BUPRENORPHINE SCREEN URINE Negative NEGATIVE [facility] Comment on above: DRUG CLASS TEST SYST [...] 300 ng/mL CANNABINOID SCREEN URINE Negative NEGATIVE [facility] COCAINE SCREEN URINE Negative NEGATIVE [facility] METHADONE SCREEN URINE Negative NEGATIVE [facility] METHAMPHETAMINES SCREEN URINE Negative NEGATIVE [facility] OPIATE SCREEN URINE Negative NEGATIVE [facility] OXYCODONE SCREEN URINE Negative NEGATIVE [facility] PHENCYCLIDINE SCREEN URINE Negative NEGATIVE [facility] TRICYCLIC ANTIDEPRESSANT URINE Negative NEGATIVE [facility] REEFLEX IF POSITIVE [facility] HCG ( test) Ql (U)o n 06-29-2024 Interpretation and review of laboratory results Abnormal [facility] Preg Test, Ur Positive [facility] Urinalysis macro (dipstick) panel (U)on 06-29-2024 Bilirubin, UA Negative Negative - 4(70) +++ mg/dL [facility] Blood, UA Negative Negative - 50 Jason/mcL [facility] Clarity, UA Clear [facility] re Color, UA Yellow [facility] e Glucose, UA Negative Negative - 1999(110) ++++ mg/dL [facility] Interpretation and review of laboratory results Normal [facility] Ketones, UA Negative Negative - 160(16) ++++ mg/dL [facility] Leukocytes, UA Negative Negative - 500+++ Carlos/mcL [facility] Nitrite, UA Negative Negative - Positive [facility] pH, UA 7.0 5 - 9 [facility] Protein, UA Negative Negative - 1999(20) ++++ mg/dL [facility] Spec Grav, UA 1.015 1 - 1.03 [facility] Urobilinogen, UA 0.2 0.2 - 12 mg/dL [facility] XR hand RT min 3V*on 023 XR hand RT min 3V* [facility] [employer] Other XR hand RT min 3V* [facility] [employer] Other XR hand RT min 3V* [address] [place] [address] [employer] Other XR hand RT min 3V* [place] [address] [employer] Other XR hand RT min 3V* XRay Report [employer] Other XR hand RT min 3V* Signed [employer] Other XR hand RT min 3V* Patient: Amber Funes MR#: [id number] [place] [employer] Other XR hand RT min 3V* 18 [employer] Other XR hand RT min 3V* : 2000 Acct:[id number] [employer] Other XR hand RT min 3V* Age/Sex: 22 / F ADM Date: 12/26/22 [employer] Other XR hand RT min 3V* Loc: XDUCLY Room: Type: [facility] [employer] Other XR hand RT min 3V* Attending Dr: Jennifer GIL [employer] Other XR hand RT min 3V* Copies to: JEFFERY Rodriguez [employer] Other XR hand RT min 3V* Ordering Provider: JEFFERY Rodriguez [employer] Other XR hand RT min 3V* Date of Service: 12/26/22 [employer] Other XR hand RT min 3V* XR/XR hand RT min 3V*: RIGHT HAND INJURY [employer] Other XR hand RT min 3V* RIGHT HAND - 4 views [employer] Other XR hand RT min 3V* REASON FOR EXAM: Patient had right thumb hyperextended yesterday when trying to open the door. Now [employer] Other XR hand RT min 3V* with pain. [employer] Other XR hand RT min 3V* COMPARISON: None [employer] Other XR hand RT min 3V* FINDINGS: [employer] Other XR hand RT min 3V* No focal soft tissue abnormality. There appears to be avulsion fracture involving the base of the [employer] Other XR hand RT min 3V* distal phalanx of the thumb. Joint spaces appear maintained. No bony erosions. [employer] Other XR hand RT min 3V* XR/XR hand RT min 3V* [employer] Other XR hand RT min 3V* IMPRESSION: [employer] Other XR hand RT min 3V* AVULSION FRACTURE INVOLVING THE BASE OF THE DISTAL PHALANX OF THE THUMB. [employer] Other XR hand RT min 3V* Impression dictated by: Bulmaro Arias Jr., DGeneOGene12/26/2022 1:44 PM [employer] Other XR hand RT min 3V* Dictation Location: [place] [address] [employer] Other XR hand RT min 3V* Transcribed By: LYNETTE 12/26/22 [facility] [employer] Other XR hand RT min 3V* Dictated By: Bulmaro Arias Jr, DO 12/26/22 [facility]3 [employer] Other XR hand RT min 3V* Signed By: [employer] Other XR hand RT min 3V* 12/26/[address] [place] [address] [employer] Other PAP ACOG PANEL 2: 22 to 30on 11-09-2022 . . Normal [facility] Comment on above: Performed By: #### [id number] ####[facility] [address] [place] [id number] Mancini Age Gdln ACOG Testing 22- Normal [facility] Comment on above: Performed By: #### [id number] ####[facility] [address] [place] [id number]. Donis Mancini DIAGNOSIS: Comment [facility] Comment on above: Result Comment: NEGA TIVE FOR INTRAEPITHELIAL LESION OR MALIGNANCY. Performed By: #### [id number] ####[facility] [address] [place], [place] [address]DrGene Mancini Methodology: Comment Normal [facility] Comment on above: Result Comment: This liquid based ThinPrep(R) pap test was screened with the use of an image guided system. Performed By: #### [id number] ####[facility] [address] [place], [place] [address]DrGene Mancini Note: Comment [facility] Comment on above: Result Comment: The Pap smear is a screening test designed to aid in the detection of premalignant and malignant conditions of the uterine cervix. It is not a diagnostic procedure and should not be used as the sole means of detecting cervical cancer. Both false-positive and false-negative reports do occur. . Performed By: #### [id number] ####[facility] [id number] [place] [id number] Mancini Performed by: Comment Normal [facility] Comment on above: Result Comment: [employer]ule[employer] Business Services Sales Representative (ASCP) Performed By: #### [id number] ####[facility] [address] [place] [id number] Mancini Reflex Criteria: Comment Normal [facility] Comment on above: Result Comment: The HPV DNA reflex criteria were not met with this specimen result therefore, no HPV testing was performed. . Performed By: #### [id number] ####[facility] [id number] [place] [address]Dr. Donis Mancini Specimen adequacy: Comment Normal [facility] Comment on above: Result Comment: Sati sfactory for evaluation. Endocervical and/or squamous metaplastic cells (endocervical component) are present. Performed By: #### [id number] ####[facility] [address] [place] [address]Dr. Donis Mancini Cytology Cervical or vaginal smear or scraping studyOrdered By: Jael Nix on 11-02-2022 [facility] CBC AUTO DIFFon 08-11-2022 BASO # 0.0 103/ul Normal 0.0-0.1 [facility] Comment on above: Performed By: #### C T/NGNA #### [facility] Laboratory [address] [place] [address] Dr. Donis Mancini Basophils/100 WBC (Bld) 0.2 % Normal 0.2-2.0 [facility] Comment on above: Performed By: #### C T/NGNA #### [facility] [address] [place] [address] Dr. Donis Mancini EO # 0.1 103/ul Normal 0.0-0.7 [facility] Comment on above: Performed By: #### C T/NGNA #### [facility] Laboratory [address] [place] [address] Dr. Donis Mancini Eosinophils/100 WBC (Bld) 0.5 % Critically low 0.9-7.0 [facility] Comment on above: Performed By: #### C T/NGNA #### [facility] Laboratory [address] [place] [address] Dr. Donis Mancini Erythrocyte distribution width (RBC) [Ratio] 12.5 % Normal 11.0-15.0 [facility] Comment on above: Performed By: #### C T/NGNA #### [facility] Laboratory [address] [place] [address] Dr. Donis Mancini Hematocrit (Bld) [Volume fraction] 35.9 % Critically low 36.0-48.0 [facility] Comment on above: Performed By: #### C T/NGNA #### [facility] Laboratory [address] [place] [address] Dr. Donis Mancini Hemoglobin (Bld) [Mass/Vol] 12.4 g/dL Normal 12.0-16.0 [facility] Comment on above: Result Comment: michelet ent delivered Performed By: #### C T/NGNA #### [facility] Laboratory [address] [place] [address] Dr. Donis Mancini IG # 0.10 10e3/ul Critically high 0.00-0.03 [facility] Comment on above: Performed By: #### C T/NGNA #### [facility] Laboratory [address] [place] [address] Dr. Donis Mancini IG % 0.5 % Normal 0.0-0.5 [facility] Comment on above: Performed By: #### C T/NGNA #### [facility] Laboratory [address] [place] [address] Dr. Donis Mancini LYMPH # 1.5 103/ul Normal 1.2-3.8 [facility] Comment on above: Performed By: #### C T/NGNA #### [facility] Laboratory [address] [place] [address] Dr. Donis Mancini Lymphocytes/100 WBC (Bld) 7.6 % Critically low 20.5-60.0 [facility] Comment on above: Performed By: #### C T/NGNA #### [facility] Laboratory [address] [place] [address] Dr. Donis Mancini MANUAL DIFF REQ NO Normal [facility] Comment on above: Performed By: #### C T/NGNA #### [facility] Laboratory [address] [place] [address] Dr. Donis Mancini MCH (RBC) [Entitic mass] 32.2 pg Normal 26.7-34.0 [facility] Comment on above: Performed By: #### C T/NGNA #### [facility] Laboratory [address] [place], [place] [id number] Dr. Donis Mancini MCHC (RBC) [Mass/Vol] 34.5 g/dL Normal 29.9-35.[address] [facility] Comment on above: Performed By: #### C T/NGNA #### [facility] Laboratory [address] [place] [address] Dr. Donis Mancini MCV (RBC) [Entitic vol] 93.2 fL Normal 81.0-99.[address] [facility] Comment on above: Performed By: #### C T/NGNA #### [facility] Laboratory [address] [place] [address] Dr. Donis Mancini MONO # 1.3 103/ul Critically high 0.3-0.8 [facility] Comment on above: Performed By: #### C T/NGNA #### [facility] Laboratory [address] [place] [address] Dr. Donis Mancini Monocytes/100 WBC (Bld) 6.8 % Normal 1.7-12.0 [facility] Comment on above: Performed By: #### C T/NGNA #### [facility] Laboratory [address] [place] [address] Dr. Donis Mancini NEUT # 16.2 103/ul Critically high 1.4-6.5 [facility] Comment on above: Performed By: #### C T/NGNA #### [facility] Laboratory [address] [place] [address] Dr. Donis Mancini Neutrophils/100 WBC (Bld) 84.4 % Critically high 43.0-75.[address] [facility] Comment on above: Performed By: #### C T/NGNA #### [facility] Laboratory [address] [place] [address] Dr. Donis Mancini Platelet mean volume (Bld) [Entitic vol] 11.8 fL Normal 9.5-13.[address] [facility] Comment on above: Performed By: #### C T/NGNA #### [facility] Laboratory [address] [place] [address] Dr. Donis Mancini PLT 156 103/ul Normal 150-[address] [facility] Comment on above: Performed By: #### C T/NGNA #### [facility] Laboratory [address] [place], [place] [address] Dr. Donis Mancini RBC 3.85 106/ul Critically low 4.20-5.40 [facility] Comment on above: Performed By: #### C T/NGNA #### [facility] Laboratory [address] [place], [place] [address] Dr. Donis Mancini WBC 19.2 103/ul Critically high 4.0-11.0 [facility] Comment on above: Performed By: #### C T/NGNA #### [facility] Laboratory [address] [place], [place] [address] Dr. Donis Mancini Covid-19 PCR (CVDTB)on 07-27 SARS-CoV-2 (COVID-19) RNA INESSA+probe Ql (Unsp spec) Not detected Normal NOT DETECTED [facility] Comment on above: Result Comment: When diagnostic [...] for this test is supported by the [place] of Health and Human Service's declaration that [...] be used). Performed By: #### C VDTBH ####[facility] [address] [place], [place] [address]CsDr. Donis Mancini DRUG SCREEN RAPID (URINE)on 08-10-2022 AMP Negative Normal NEGATIVE [facility] Comment on above: Performed By: #### D RUGRPD ####[facility] [address] [place], [place] [address]DwDr. Donis Mancini BAR Negative Normal NEGATIVE [facility] Comment on above: Performed By: #### D RUGRPD ####[facility] [address] [place] [phone]. Donis Mancini BUP Negative Normal NEGATIVE [facility] Comment on above: Performed By: #### D RUGRPD ####[facility] [address] [place] [phone]. Donis Mancini BZO Negative Normal NEGATIVE [facility] Comment on above: Performed By: #### D RUGRPD ####[facility] [address] [place] [phone]. Donis Mancini ALEXA Negative Normal NEGATIVE [facility] Comment on above: Performed By: #### D RUGRPD ####[facility] [address] [place] [phone]. Donis Mancini CUT-OFFS SEE BELOW Normal [facility] Comment on above: Result Comment: AMP (Amphetamine): 500ng/mL, BAR (Barbituates): 200 ng/mL, BZO (Benzodiazepines): 150 ng/mL, BUP (Buprenorphine): 10 ng/mL, ALEXA (Cocaine): 150 ng/mL, mAMP (Methamphetamine): 500 ng/mL, MTD (Methadone): 200 ng/mL, OPI (Opiates): 100 ng/mL, OXY (Oxycodone): 100 ng/mL, PCP (Phencyclidine): 25 ng/mL, PPX (Propoxyphene): 300 ng/mL, THC (Cannabinoids): 50 ng/mL, TCA (Trycyclic Antidepressants): 300 ng/mL Performed By: #### D RUGRPD ####[facility] [address] [place] [phone]. Donis Mancini DRUG CUT HEADER DRUG CLASS TEST SYSTEM CUT-OFF CONCENTRATIONS ARE FOLLOWS: Normal [facility] Comment on above: Performed By: #### D RUGRPD ####[facility] [address] [place] [phone]. Donis Mancini mAMP Negative Normal NEGATIVE [facility] Comment on above: Performed By: #### D RUGRPD ####[facility] [address] [place] [phone]. Yijavi Mancini MTD Negative Normal NEGATIVE [facility] Comment on above: Performed By: #### D RUGRPD ####[facility] [address] [place] [phone]. Yijavi Mancini OPI Negative Normal NEGATIVE [facility] Comment on above: Performed By: #### D RUGRPD ####[facility] [address] [place] [address]Dr. Yilan Mancini OXY Negative Normal NEGATIVE [facility] Comment on above: Performed By: #### D RUGRPD ####[facility] [address] [place] [address]Dr. Donis Mancini PCP Negative Normal NEGATIVE [facility] Comment on above: Performed By: #### D RUGRPD ####[facility] [address] [place], [place] [address]Dr. Donis Mancini PPX Negative Normal NEGATIVE [facility] Comment on above: Performed By: #### D RUGRPD ####[facility] [address] [place], [place] [address]Dr. Donis Mancini TCA Negative Normal NEGATIVE [facility] Comment on above: Performed By: #### D RUGRPD ####[facility] [address] [place] [address]Dr. Donis Mancini THC Negative Normal NEGATIVE [facility] Comment on above: Performed By: #### D RUGRPD ####[facility] [address] [place], [place] [address]Dr. Donis Mancini TYPE AND SCREENon 08-10-2022 TYPE AND SCREEN Negative Normal [facility] Comment on above: Performed By: #### T NS ####[facility] [address] [place], [place] [address]Dr. Donis Mancini US PREG BIOPHY W NON [...] ESTEFANY BENNETT Date: 2022-08-10 07:[address] [facility] US PREG GROWTHon 08-10-2022 US PREG GROWTH [...] ESTEFANY BENNETT Date: 2022-08-10 07:[address] [facility] CBC AUTO DIFFon 08-09-2022 BASO # 0.0 103/ul Normal 0.0-0.1 [facility] Comment on above: Performed By: #### C BC ####[facility] [address] [place] [address]Dr. Donis Mancini Basophils/100 WBC (Bld) 0.2 % Normal 0.2-2.[address] [facility] Comment on above: Performed By: #### C BC ####[facility] [address] [place] [address]Dr. Donis Mancini EO # 0.4 103/ul Normal 0.0-0.[address] [facility] Comment on above: Performed By: #### C BC ####[facility] [address] [place] [phone]. Donis Mancini Eosinophils/100 WBC (Bld) 2.8 % Normal 0.9-7.0 [facility] Comment on above: Performed By: #### C BC ####[facility] [address] [place] [phone]. Donis Mancini Erythrocyte distribution width (RBC) [Ratio] 12.2 % Normal 11.0-15.0 [facility] Comment on above: Performed By: #### C BC ####[facility] [address] [place] [phone]. Donis Mancini Hematocrit (Bld) [Volume fraction] 41.4 % Normal 36.0-48.0 [facility] Comment on above: Performed By: #### C BC ####[facility] [address] [place], [place] [address]Dr. Donis Mancini Hemoglobin (Bld) [Mass/Vol] 14.4 g/dL Normal 12.0-16.0 [facility] Comment on above: Performed By: #### C BC ####[facility] [address] [place], [place] [address]Dr. Donis Mancini IG # 0.06 10e3/ul Critically high 0.00-0.03 [facility] Comment on above: Performed By: #### C BC ####[facility] [address] [place], [place] [address]Dr. Donis Mancini IG % 0.5 % Normal 0.0-0.[address] [facility] Comment on above: Performed By: #### C BC ####[facility] [address] [place], [place] [address]Dr. Donis Mancini LYMPH # 1.5 103/ul Normal 1.2-3.[address] [facility] Comment on above: Performed By: #### C BC ####[facility] [address] [place], [place] [address]Dr. Donis Mancini Lymphocytes/100 WBC (Bld) 11.7 % Critically low 20.5-60.0 [facility] Comment on above: Performed By: #### C BC ####[facility] [address] [place] [phone]. Laceyjavi Mancini MANUAL DIFF REQ NO Normal [facility] Comment on above: Performed By: #### C BC ####[facility] [address] [place] [phone]. Donis Live MCH (RBC) [Entitic mass] 31.9 pg Normal 26.7-34.[address] [facility] Comment on above: Performed By: #### C BC ####[facility] [address] [place], [place] [id number]. Donis Live MCHC (RBC) [Mass/Vol] 34.8 g/dL Normal 29.9-35.[address] [facility] Comment on above: Performed By: #### C BC ####[facility] [address] [place], [place] [address]Dr. Donis Mancini MCV (RBC) [Entitic vol] 91.8 fL Normal 81.0-99.[address] [facility] Comment on above: Performed By: #### C BC ####[facility] [address] [place], [place] [id number]. Laceyjavi Live MONO # 1.0 103/ul Critically high 0.3-0.8 [facility] Comment on above: Performed By: #### C BC ####[facility] [address] [place], [place] [address]Dr. Donis Mancini Monocytes/100 WBC (Bld) 7.5 % Normal 1.7-12.[address] [facility] Comment on above: Performed By: #### C BC ####[facility] [address] [place] [phone]. Donis Mancini NEUT # 10.0 103/ul Critically high 1.4-6.5 [facility] Comment on above: Performed By: #### C BC ####[facility] [address] [place], [place] [address]Dr. Donis Mancini Neutrophils/100 WBC (Bld) 77.3 % Critically high 43.0-75.[address] [facility] Comment on above: Performed By: #### C BC ####[facility] [address] [place] [phone]. Donis Mancini Platelet mean volume (Bld) [Entitic vol] 11.6 fL Normal 9.5-13.5 [facility] Comment on above: Performed By: #### C BC ####[facility] [address] [place] [phone]. Donis Mancini PLT 184 103/ul Normal 150-450 [facility] Comment on above: Performed By: #### C BC ####[facility] [address] [place] [phone]. Donis Mancini RBC 4.51 106/ul Normal 4.20-5.40 [facility] Comment on above: Performed By: #### C BC ####[facility] [address] [place] [phone]. Donis Mancini WBC 12.9 103/ul Critically high 4.0-11.0 [facility] Comment on above: Performed By: #### C BC ####[facility] [address] [place] [phone] Mancini LDHon 08-09-2022 LDH 167 U/L Normal 81-234 [facility] Comment on above: Performed By: #### C T/NGNA #### [facility] Laboratory [address] [place] [address] Dr. Donis Mancini PROF 14(COMP METB)on 022 Albumin [Mass/Vol] 2.7 g/dL Critically low 3.4-5.0 [facility] Comment on above: Performed By: #### C T/NGNA #### [facility] [address] [place] [address] [address] Donis Mancini Albumin/Globulin [Mass ratio] 0.6 {ratio} Normal [facility] Comment on above: Performed By: #### C T/NGNA #### [facility] [address] [place] [address] [address] Donis Mancini ALP [Catalytic activity/Vol] 176 U/L Critically high 46-116 [facility] Comment on above: Performed By: #### C T/NGNA #### [facility] [address] [place] [address] [address] Donis Mancini ALT [Catalytic activity/Vol] 20 U/L Normal 14-59 [facility] Comment on above: Performed By: #### C T/NGNA #### [facility] [address] [place] [address] [address] Donis Mancini Anion gap [Moles/Vol] 12.9 mmol/L Normal [facility] Comment on above: Performed By: #### C T/NGNA #### [facility] [address] [place] [address] [address] Donis Mancini AST [Catalytic activity/Vol] 20 U/L Normal 15-37 [facility] Comment on above: Performed By: #### C T/NGNA #### [facility] [address] [place] [address] [address] Donis Mancini Bilirubin [Mass/Vol] 0.1 mg/dL Critically low 0.2-1.0 [facility] Comment on above: Performed By: #### C T/NGNA #### [facility] [address] [place] [address] [address] Donis Mancini Calcium [Mass/Vol] 9.1 mg/dL Normal 8.5-10.1 [facility] Comment on above: Performed By: #### C T/NGNA #### [facility] [address] [place] [address] [address] Donis Mancini Chloride [Moles/Vol] 104 mmol/L Normal 98-[address] [facility] Comment on above: Performed By: #### C T/NGNA #### [facility] [address] [place] [address] [address] Donis Mancini CO2 [Moles/Vol] 22.9 mmol/L Normal 21.0-32.0 [facility] Comment on above: Performed By: #### C T/NGNA #### [facility] [address] [place] [address] [address] Donis Mancini Creatinine [Mass/Vol] 0.43 mg/dL Critically low 0.55-1.02 [facility] Comment on above: Performed By: #### C T/NGNA #### [facility] [address] [place] [address] [address] Donis Mancini EGFR-AF WALLISIAN >60 Normal >=60 [facility] Comment on above: Performed By: #### C T/NGNA #### [facility] [address] [place] [address] [address] Donis Mancini EGFR-NON AF WALLISIAN >60 Normal >=60 [facility] Comment on above: Performed By: #### C T/NGNA #### [facility] [address] [place] [address] [address] Donis Mancini Globulin (S) [Mass/Vol] 4.2 g/dL Normal [facility] Comment on above: Performed By: #### C T/NGNA #### [facility] [address] [place] [address] [address] Donis Mancini Glucose [Mass/Vol] 95 mg/dL Normal 74-106 [facility] Comment on above: Performed By: #### C T/NGNA #### [facility] [address] [place] [address] [address] Donis Mancini Potassium [Moles/Vol] 3.8 mmol/L Normal 3.5-5.1 [facility] Comment on above: Performed By: #### C T/NGNA #### [facility] [address] [place] [address] [address] Donis Mancini Protein [Mass/Vol] 6.9 g/dL Normal 6.4-8.2 [facility] Comment on above: Performed By: #### C T/NGNA #### [facility] [address] [place] [address] [address] Donis Mancini Sodium [Moles/Vol] 136 mmol/L Normal 136-145 [facility] Comment on above: Performed By: #### C T/NGNA #### [facility] [address] [place] [address] [address] Donis Mancini Urea nitrogen [Mass/Vol] 10.0 mg/dL Normal 7.0-18.0 [facility] Comment on above: Performed By: #### C T/NGNA #### [facility] [address] [place] [address] Dr. Donis Mancini Urea nitrogen/Creatinine [Mass ratio] 23.3 mg/mg Normal [facility] Comment on above: Performed By: #### C T/NGNA #### [facility] [address] [place] [address] Dr. Donis Mancini URIC ACID SERUMon 08-09-2022 Urate [Mass/Vol] 3.6 mg/dL Normal 2.6-6.0 [facility] Comment on above: Performed By: #### C T/NGNA #### [facility] [address] [place] [address] Dr. Donis Mancini CBC AUTO DIFFon 08-07-2022 BASO # 0.0 103/ul Normal 0.0-0.1 [facility] Comment on above: Performed By: #### U AMIC #### [facility] [address] [place] [address] Dr. Donis Mancini Basophils/100 WBC (Bld) 0.2 % Normal 0.2-2.0 [facility] Comment on above: Performed By: #### U AMIC #### [facility] [address] [place] [address] Dr. Donis Mancini EO # 0.2 103/ul Normal 0.0-0.[address] [facility] Comment on above: Performed By: #### U AMIC #### [facility] [address] [place] [address] Dr. Donis Mancini Eosinophils/100 WBC (Bld) 1.8 % Normal 0.9-7.[address] [facility] Comment on above: Performed By: #### U AMIC #### [facility] [address] [place] [address] Dr. Donis Mancini Erythrocyte distribution width (RBC) [Ratio] 12.3 % Normal 11.0-15.0 [facility] Comment on above: Performed By: #### U AMIC #### [facility] [address] [place] [address] [address] Donis Mancini Hematocrit (Bld) [Volume fraction] 45.7 % Normal 36.0-48.0 [facility] Comment on above: Performed By: #### U AMIC #### [facility] [address] [place] [address] Dr. Donis Mancini Hemoglobin (Bld) [Mass/Vol] 16.0 g/dL Normal 12.0-16.0 [facility] Comment on above: Performed By: #### U AMIC #### [facility] [address] [place] [address] [address] Donis Mancini IG # 0.07 10e3/ul Critically high 0.00-0.03 [facility] Comment on above: Performed By: #### U AMIC #### [facility] [address] [place] [address] Dr. Donis Mancini IG % 0.5 % Normal 0.0-0.5 [facility] Comment on above: Performed By: #### U AMIC #### [facility] [address] [place] [address] Dr. Donis Mancini LYMPH # 1.5 103/ul Normal 1.2-3.8 [facility] Comment on above: Performed By: #### U AMIC #### [facility] [address] [place] [address] Dr. Donis Mancini Lymphocytes/100 WBC (Bld) 11.2 % Critically low 20.5-60.0 [facility] Comment on above: Performed By: #### U AMIC #### [facility] [address] [place] [address] Dr. Donis Mancini MANUAL DIFF REQ NO Normal [facility] Comment on above: Performed By: #### U AMIC #### [facility] [address] [place] [address] [address] Donis Mancini MCH (RBC) [Entitic mass] 32.0 pg Normal 26.7-34.0 [facility] Comment on above: Performed By: #### U AMIC #### [facility] [address] [place] [address] Dr. Donis Mancini MCHC (RBC) [Mass/Vol] 35.0 g/dL Normal 29.9-35.[address] [facility] Comment on above: Performed By: #### U AMIC #### [facility] [address] [place] [address] [address] Donis Mancini MCV (RBC) [Entitic vol] 91.4 fL Normal 81.0-99.[address] [facility] Comment on above: Performed By: #### U AMIC #### [facility] [address] [place] [address] [address] Donis Mancini MONO # 0.9 103/ul Critically high 0.3-0.8 [facility] Comment on above: Performed By: #### U AMIC #### [facility] [address] [place] [address] [address] Donis Mancini Monocytes/100 WBC (Bld) 6.3 % Normal 1.7-12.[address] [facility] Comment on above: Performed By: #### U AMIC #### [facility] [address] [place] [address] [address] Donis Mancini NEUT # 10.9 103/ul Critically high 1.4-6.5 [facility] Comment on above: Performed By: #### U AMIC #### [facility] [address] [place] [address] [address] Donis Mancini Neutrophils/100 WBC (Bld) 80.0 % Critically high 43.0-75.[address] [facility] Comment on above: Performed By: #### U AMIC #### [facility] [address] [place] [address] [address] Donis Mancini Platelet mean volume (Bld) [Entitic vol] 11.5 fL Normal 9.5-13.[address] [facility] Comment on above: Performed By: #### U AMIC #### [facility] [address] [address] [address] Donis Mancini PLT 182 103/ul Normal 150-[address] [facility] Comment on above: Performed By: #### U AMIC #### [facility] [address] [address] [address] Donis Mancini RBC 5.00 106/ul Normal 4.20-5.40 [facility] Comment on above: Performed By: #### U AMIC #### [facility] [address] [address] [address] Donis Mancini WBC 13.6 103/ul Critically high 4.0-11.0 [facility] Comment on above: Performed By: #### U AMIC #### [facility] [address] [address] [address] Donis Mancini LDHon 08-07-2022 LDH 171 U/L Normal 81-234 [facility] Comment on above: Performed By: #### C MP, URIC, LDH ####[facility] [address] [address]DrGene Mancini PROF 14(COMP METB)on 022 Albumin [Mass/Vol] 2.9 g/dL Critically low 3.4-5.0 [facility] Comment on above: Performed By: #### C MP, URIC, LDH ####[facility] [address] [address]DrGene Mancini Albumin/Globulin [Mass ratio] 0.6 {ratio} Normal [facility] Comment on above: Performed By: #### C MP, URIC, LDH ####[facility] [address] [address]Dr. Donis Mancini ALP [Catalytic activity/Vol] 192 U/L Critically high 46-116 [facility] Comment on above: Performed By: #### C MP, URIC, LDH ####[facility] [address] [address]Dr. Donis Mancini ALT [Catalytic activity/Vol] 23 U/L Normal 14-59 [facility] Comment on above: Performed By: #### C MP, URIC, LDH ####[facility] [address] [address]DrGene Mancini Anion gap [Moles/Vol] 14.4 mmol/L Normal [facility] Comment on above: Performed By: #### C MP, URIC, LDH ####[facility] [address] [address]Dr. Donis Mancini AST [Catalytic activity/Vol] 23 U/L Normal 15-[address] [facility] Comment on above: Performed By: #### C MP, URIC, LDH ####[facility] [address] [address]Dr. Donis Mancini Bilirubin [Mass/Vol] 0.2 mg/dL Normal 0.2-1.0 [facility] Comment on above: Performed By: #### C MP, URIC, LDH ####[facility] [address] [address]Dr. Donis Mancini Calcium [Mass/Vol] 9.4 mg/dL Normal 8.5-10.1 [facility] Comment on above: Performed By: #### C MP, URIC, LDH ####[facility] [address] [place], [place] [address]Dr. Donis Mancini Chloride [Moles/Vol] 104 mmol/L Normal 98-[address] [facility] Comment on above: Performed By: #### C MP, URIC, LDH ####[facility] [address] [place], [place] [address]Dr. Donis Mancini CO2 [Moles/Vol] 21.7 mmol/L Normal 21.0-32.0 [facility] Comment on above: Performed By: #### C MP, URIC, LDH ####[facility] [address] [place], [place] [address]Dr. Donis Mancini Creatinine [Mass/Vol] 0.46 mg/dL Critically low 0.55-1.02 [facility] Comment on above: Performed By: #### C MP, URIC, LDH ####[facility] Y[address] [place], [place] [address]Dr. Donis Mancini EGFR-AF WALLISIAN >60 Normal >=60 [facility] Comment on above: Performed By: #### C MP, URIC, LDH ####[facility] [address] [place], [place] [address]Dr. Donis Mancini EGFR-NON AF WALLISIAN >60 Normal >=[address] [facility] Comment on above: Performed By: #### C MP, URIC, LDH ####[facility] [address] [address]Dr. Donis Mancini Globulin (S) [Mass/Vol] 4.6 g/dL Normal [facility] Comment on above: Performed By: #### C MP, URIC, LDH ####[facility] [address] [address]Dr. Donis Mancini Glucose [Mass/Vol] 89 mg/dL Normal 74-106 [facility] Comment on above: Performed By: #### C MP, URIC, LDH ####[facility] [address] [place], [place] [address]Dr. Donis Mancini Potassium [Moles/Vol] 4.1 mmol/L Normal 3.5-5.[address] [facility] Comment on above: Performed By: #### C MP, URIC, LDH ####[facility] [address] [place], [place] [address]Dr. Donis Mancini Protein [Mass/Vol] 7.5 g/dL Normal 6.4-8.2 [facility] Comment on above: Performed By: #### C MP, URIC, LDH ####[facility] [address] [place], [place] [address]Dr. Donis Mancini Sodium [Moles/Vol] 136 mmol/L Normal 136-145 [facility] Comment on above: Performed By: #### C MP, URIC, LDH ####[facility] [address] [place], [place] [address]Dr. Donis Mancini Urea nitrogen [Mass/Vol] 8.0 mg/dL Normal 7.0-18.[address] [facility] Comment on above: Performed By: #### C MP, URIC, LDH ####[facility] [address] [place], [place] [address]Dr. Donis Mancini Urea nitrogen/Creatinine [Mass ratio] 17.4 mg/mg Normal [facility] Comment on above: Performed By: #### C MP, URIC, LDH ####[facility] [address] [address]Dr. Donis Mancini PROTIMEon 08-07-2022 INR Coag (PPP) [Relative time] {INR} Normal [facility] Comment on above: Performed By: #### U AMIC #### [facility] [address] [place] [address] Dr. Donis Mancini INR GUIDELINES SEE BELOW Normal [facility] Comment on above: Result Comment: NICCI RED INR: 2.0 - 3.0 CONDITIONS NOT LISTED BELOW 2.5 - 3.5 FOR PROSTHETIC HEART VALVE REPLACEMENT 2.5 - 3.5 RECURRENT THROMBOSIS Performed By: #### U AMIC #### [facility] [address] [address] [address] Donis Mancini PT Coag (PPP) [Time] 9.8 s Normal 9.0-11.6 [facility] Comment on above: Performed By: #### U AMIC #### [facility] [address] [place] [address] Dr. Donis Mancini PTTon 08-07-2022 aPTT Coag (Bld) [Time] 28.5 s Normal 22.3-36.2 [facility] Comment on above: Performed By: #### U AMIC #### [facility] [address] [place] [address] Dr. Donis Mancini UA (CLEAN/CATCH) ALCOHOLISM WORKER/MICRO I F IND.on 08-07-2022 Bilirubin Ql (U) Negative Normal NEGATIVE [facility] Comment on above: Performed By: #### U AMIC #### [facility] [address] [place] [address] Dr. Donis Mancini Clarity (U) CLEAR Normal CLEAR [facility] Comment on above: Performed By: #### U AMIC #### [facility] [address] [place] [address] Dr. Donis Mancini Color (U) LT. YELLOW Normal YELLOW [facility] Comment on above: Performed By: #### U AMIC #### [facility] [address] [place] [address] Dr. Donis Mancini Glucose Ql (U) Negative Normal NEGATIVE [facility] Comment on above: Performed By: #### U AMIC #### [facility] [address] [address] [address] Donis Manciin Hemoglobin Ql (U) Negative Normal NEGATIVE [facility] Comment on above: Performed By: #### U AMIC #### [facility] [address] [address] [address] Donis Mancini Ketones Ql (U) Negative Normal NEGATIVE [facility] Comment on above: Performed By: #### U AMIC #### [facility] [address] [address] [address] Donis Mancini LEUKOCYTES Negative Normal NEGATIVE [facility] Comment on above: Performed By: #### U AMIC #### [facility] [address] [address] [address] Donis Mancini Nitrite Ql (U) Negative Normal NEGATIVE [facility] Comment on above: Performed By: #### U AMIC #### [facility] [address] [address] [address] Donis Mancini pH (U) 7.0 [pH] Normal 5-9 [facility] Comment on above: Performed By: #### U AMIC #### [facility] [address] [address] [address] Donis Mancini SPEC GRAVITY <=1.005 Abnormal 1.005-<=1.025 [facility] Comment on above: Performed By: #### U AMIC #### [facility] [address] [address] [address] Donis Mancini UA PROTEIN Negative Normal NEGATIVE/ TRACE [facility] Comment on above: Performed By: #### U AMIC #### [facility] [address] [address] [address] Donis Mancini UR MICRO IND NOT INDICATED Normal [facility] Comment on above: Performed By: #### U AMIC #### [facility] [address] [place] [address] Dr. Donis Mancini Urobilinogen Qn (U) 0.2 {Sarah'U}/dL Normal 0.2 - 1. 0 [facility] Comment on above: Performed By: #### U AMIC #### [facility] [address] [address] [address] Donis Mancini URIC ACID SERUMon 08-07-2022 Urate [Mass/Vol] 3.8 mg/dL Normal 2.6-6.0 [facility] Comment on above: Performed By: #### C MP, URIC, LDH ####[facility] [address] [address]Dr. Donis Mancini URINE T PROTEIN CREAT RATIOo n 08-07-2022 UR TOTAL PROTEIN <6.0 Normal <=12.0 [facility] Comment on above: Performed By: #### C T/NGNA #### [facility] [address] [address] [address] Donis Mancini URINE CREAT 13.45 mg/dL Critically low 20.00-300.00 [facility] Comment on above: Performed By: #### C T/NGNA #### [facility] [address] [place] [address] Dr. Donis Mancini US PREG BIOPHY W [...] COCO STERN Date: 2022-08-01 08:[address] [facility] CHLAMYDIA/GONOCOCCUS INESSA (SW AB/URINE/PAPon 07-31-2022 Chlamydia trachomatis, INESSA Negative Normal Negative [facility] Comment on above: Performed By: #### C T/NGNA #### [facility] [address] [address] [address] Donis Mancini Neisseria gonorrhoeae, INESSA Negative Normal Negative [facility] Comment on above: Performed By: #### C T/NGNA #### [facility] [address] [address] [address] Donis Mancini VAGINITIS/VAGINOSIS DNA PROB Domenic 07-31-2022 Simeon species Negative Normal Negative [facility] Comment on above: Performed By: #### V AGINT ####[facility] [address] [address]Dr. Donis Mancini Gardnerella vaginalis Negative Normal Negative [facility] Comment on above: Performed By: #### V AGINT ####[facility] [address] [address]Dr. Donis Mancini Trichomonas vaginalis Negative Normal Negative [facility] Comment on above: Performed By: #### V AGINT ####[facility] [address] [address]Dr. Donis Mancini GROUP B STREP CULTUREon S. agalactiae Ag Ql (Unsp spec) Culture Observations: NEGATIVE FOR GROUP B STREPTOCOCCUS. Normal [facility] Comment on above: Performed By: #### G BSCX #### [facility] [address] [address] [address] Donis Mancini US PREG BIOPHY W [...] COCO STERN Date: 2022-07-25 09:[address] [facility] US PREG GROWTHon 07-11-2022 US PREG GROWTH [...] ESTEFANY BENNETT Date: 2022-07-11 19:[address] [facility] Covid-19 PCR (CVDTB)on 06-26 SARS-CoV-2 (COVID-19) RNA INESSA+probe Ql (Unsp spec) Not detected Normal NOT DETECTED [facility] Comment on above: Result Comment: When diagnostic [...] for this test is supported by the [employer] Worker of Health and Human Service's declaration [...] longer be used). Performed By: #### C T/JAYNA #### [facility] [address] [place] [address] Dr. Donis Mancini GTT 3 HR PREGon 06-03-2022 Glucose [Mass/Vol] 94 mg/dL Normal 74-106 [facility] Comment on above: Performed By: #### U AMIC #### [facility] [address] [place] [address] Dr. Donis Mancini Glucose [Mass/Vol] 147 mg/dL Normal [facility] Comment on above: Performed By: #### U AMIC #### [facility] [address] [address] [address] Donis Mancini Glucose [Mass/Vol] 159 mg/dL Normal [facility] Comment on above: Performed By: #### U AMIC #### [facility] [address] [place] [address] Dr. Donis Mancini Glucose [Mass/Vol] 151 mg/dL Normal [facility] Comment on above: Performed By: #### U AMIC #### [facility] [address] [place] [address] Dr. Donis Mancini GLUCOSE - 1HRon 05-21-2022 Glucose [Mass/Vol] 141 mg/dL Critically high 74-106 [facility] Comment on above: Performed By: #### U AMIC #### [facility] [address] [place] [address] Dr. Donis Mancini HEMOGRAM AND PLATELon 2021 Hematocrit (Bld) [Volume fraction] 39.1 % Normal 36.0-48.0 [facility] Comment on above: Performed By: #### U AMIC #### [facility] [address] [place] [address] Dr. Donis Mancini Hemoglobin (Bld) [Mass/Vol] 13.1 g/dL Normal 12.0-16.0 [facility] Comment on above: Performed By: #### U AMIC #### [facility] [address] [place] [address] Dr. Donis Mancini MCH (RBC) [Entitic mass] 32.3 pg Normal 26.7-34.0 [facility] Comment on above: Performed By: #### U AMIC #### [facility] [address] [place] [address] Dr. Donis Mancini MCHC (RBC) [Mass/Vol] 33.5 g/dL Normal 29.9-35.[address] [facility] Comment on above: Performed By: #### U AMIC #### [facility] [address] [address] [address] Donis Mancini MCV (RBC) [Entitic vol] 96.5 fL Normal 81.0-99.0 [facility] Comment on above: Performed By: #### U AMIC #### [facility] [address] [address] [address] Donis Mancini PLT 220 103/ul Normal 150-450 [facility] Comment on above: Performed By: #### U AMIC #### [facility] [address] [address] [address] Donis Mancini RBC 4.05 106/ul Critically low 4.20-5.40 [facility] Comment on above: Performed By: #### U AMIC #### [facility] [address] [place] [address] Dr. Donis Mancini WBC 12.8 103/ul Critically high 4.0-11.0 [facility] Comment on above: Performed By: #### U AMIC #### [facility] [address] [place] [address] Dr. Donis Mancini US PREG BIOPHYSICAL NO [...] ESTEFANY BENNETT Date: 2022-05-11 06:[address] [facility] CULTURE URINEon 05-10-2022 CULTURE URINE Culture Observations: MODERATE GROWTH OF MIXED GENITAL RAMBO. NO POTENTIAL PATHOGENS SEEN. Normal [facility] Comment on above: Performed By: #### U RCX #### [facility] [address] [address] [address] Donis Mancini UA RANDOM W/MICROSCOPICon BACTERIA LARGE Abnormal NONE SEEN [facility] Comment on above: Performed By: #### U AMIC ####[facility] [address] [address]Dr. Donis Mancini Bilirubin Ql (U) Negative Normal NEGATIVE [facility] Comment on above: Performed By: #### U AMIC ####[facility] [address] [address]Dr. Donis Mancini CAST NONE SEEN Normal NONE SEEN [facility] Comment on above: Performed By: #### U AMIC ####[facility] [address] [address]Dr. Donis Mancini Clarity (U) CLEAR Normal CLEAR [facility] Comment on above: Performed By: #### U AMIC ####[facility] [address] [address]Dr. Donis Mancini Color (U) YELLOW Normal YELLOW [facility] Comment on above: Performed By: #### U AMIC ####[facility] [address] [address]Dr. Donis Mancini Crystals LM Nom (Urine sed) NONE SEEN Normal NONE SEEN [facility] Comment on above: Performed By: #### U AMIC ####[facility] [address] [address]Dr. Donis Mancini Epithelial cells LM Ql (Urine sed) MODERATE Abnormal NONE SEEN /RARE [facility] Comment on above: Performed By: #### U AMIC ####[facility] [address] [address]Dr. Donis Mancini Glucose Ql (U) 250 mg/dl Abnormal NEGATIVE [facility] Comment on above: Performed By: #### U AMIC ####[facility] [address] [address]Dr. Donis Mancini Hemoglobin Ql (U) TRACE-INTACT Abnormal NEGATIVE [facility] Comment on above: Performed By: #### U AMIC ####[facility] [address] [address]Dr. Donis Mancini Ketones Ql (U) Negative Normal NEGATIVE [facility] Comment on above: Performed By: #### U AMIC ####[facility] [address] [address]Dr. Donis Mancini LEUKOCYTES LARGE Abnormal NEGATIVE [facility] Comment on above: Performed By: #### U AMIC ####[facility] [address] [address]Dr. Laceyjavi Live MUCOUS NONE SEEN Normal NONE SEEN [facility] Comment on above: Performed By: #### U AMIC ####[facility] [address] [address]Dr. Donis Mancini Nitrite Ql (U) Negative Normal NEGATIVE [facility] Comment on above: Performed By: #### U AMIC ####[facility] [address] [place], [place] [address]Dr. Donis Mancini pH (U) 6.0 [pH] Normal 5-[address] [facility] Comment on above: Performed By: #### U AMIC ####[facility] [address] [place], [place] [address]Dr. Donis Mancini RBC 2-5 Abnormal 0-2 [facility] Comment on above: Performed By: #### U AMIC ####[facility] [address] [place], [place] [address]Dr. Donis Mancini SPEC GRAVITY <=1.005 Abnormal 1.005-<=1.025 [facility] Comment on above: Performed By: #### U AMIC ####[facility] [address] [address]Dr. Donis Mancini UA PROTEIN Negative Normal NEGATIVE/ TRACE [facility] Comment on above: Performed By: #### U AMIC ####[facility] [address] [address]Dr. Donis Mancini Urobilinogen Qn (U) 0.2 {Sarah'U}/dL Normal 0.2 - 1. [address] [facility] Comment on above: Performed By: #### U AMIC ####[facility] [address] [address]Dr. Donis Mancini WBC 10-20 Abnormal NONE SEEN [facility] Comment on above: Performed By: #### U AMIC ####[facility] [address] [address]Dr. Donis Mancnii CULTURE URINEon 04-27-2022 CULTURE URINE Culture Observations: LIGHT GROWTH OF MIXED GENITAL RAMBO. NO POTENTIAL PATHOGENS SEEN. Normal [facility] Comment on above: Performed By: #### U RCX ####[facility] [address] [place], [place] [address]Dr. Donis Mancini UA (CLEAN/CATCH) ALCOHOLISM WORKER/MICRO I F IND.on 04-27-2022 Bilirubin Ql (U) Negative Normal NEGATIVE [facility] Comment on above: Performed By: #### U ACSIND, ICRO ####[facility] [address] [place], [place] [address]Dr. Donis Mancini Clarity (U) CLEAR Normal CLEAR [facility] Comment on above: Performed By: #### U ACSIND, ICRO ####[facility] [address] [place], [place] [address]Dr. Donis Mancini Color (U) LT. YELLOW Normal YELLOW [facility] Comment on above: Performed By: #### U ACSIND, ICRO ####[facility] [address] [place], [place] [address]Dr. Donis Mancini Glucose Ql (U) Negative Normal NEGATIVE [facility] Comment on above: Performed By: #### U ACSIND, UMICRO ####[facility] [address] [place], [place] [address]Dr. Donis Mancini Hemoglobin Ql (U) Negative Normal NEGATIVE [facility] Comment on above: Performed By: #### U ACSIND, UMICRO ####[facility] [address] [place], [place] [address]Dr. Donis Mancini Ketones Ql (U) Negative Normal NEGATIVE [facility] Comment on above: Performed By: #### U ACSIND, UMICRO ####[facility] [address] [address]Dr. Donis Mancini LEUKOCYTES SMALL Abnormal NEGATIVE [facility] Comment on above: Performed By: #### DONNA MONIQUE ####[facility] [address] [address]Dr. Donis Mancini Nitrite Ql (U) Negative Normal NEGATIVE [facility] Comment on above: Performed By: #### U DONNA DAMON ####[facility] [address] [address]Dr. Donis Mancini pH (U) 7.0 [pH] Normal 5-[address] [facility] Comment on above: Performed By: #### DONNA MONIQUE ####[facility] [address] [address]Dr. Doins Mancini SPEC GRAVITY 1.015 Normal 1.005-<=1.025 [facility] Comment on above: Performed By: #### DONNA MONIQUE ####[facility] [address] [place], [place] [address]Dr. Donis Mancini UA PROTEIN Negative Normal NEGATIVE/ TRACE [facility] Comment on above: Performed By: #### DONNA MONIQUE ####[facility] [address] [place], [place] [address]Dr. Donis Mancini UR MICRO IND INDICATED Normal [facility] Comment on above: Performed By: #### DONNA MONIQUE ####[facility] [address] [address]Dr. Donis Mancini Urobilinogen Qn (U) 0.2 {Sarah'U}/dL Normal 0.2 - 1. [address] [facility] [facility] Comment on above: Performed By: #### U DONNA DAMON ####[facility] [id number] [place] [address]Dr. Donis Mancini URINE MICROSCOPIC ONLYon BACTERIA MODERATE Abnormal NONE SEEN [facility] Comment on above: Performed By: #### U DONNA DAMON ####[facility] [id number] [place] [address]Dr. Donis Mancini Bacteria identified Cx Nom (U) INDICATED Normal [facility] Comment on above: Performed By: #### U ACSWENDY UMICRO ####[facility] [id number] [place] [address]Dr. Donis Mancini CAST NONE SEEN Normal NONE SEEN [facility] Comment on above: Performed By: #### U ACSWENDY UMICRO ####[facility] [id number] [place] [address]Dr. Donis Mancini Crystals LM Nom (Urine sed) NONE SEEN Normal NONE SEEN [facility] Comment on above: Performed By: #### U ACSWENDY UMICRO ####[facility] [id number] [place] [address]Dr. Donis Mancini Epithelial cells LM Ql (Urine sed) MODERATE Abnormal NONE SEEN /RARE [facility] Comment on above: Performed By: #### U ACSWENDY UMICRO ####[facility] [id number] [place] [address]Dr. Donis Mancini MUCOUS NONE SEEN Normal NONE SEEN [facility] Comment on above: Performed By: #### U ACSWENDY UMICRO ####[facility] [id number] [place] [address]Dr. Donis Mancini RBC NONE SEEN Abnormal 0-[address] [facility] Comment on above: Performed By: #### U ACSWENDY UMICRO ####[facility] [id number] [place] [address]Dr. Donis Mancini WBC 2-5 Abnormal NONE SEEN [facility] Comment on above: Performed By: #### U ACSWENDY UMICRO ####[facility] [id number] [place] [address]Dr. Donis Mancini US KIDNEYSon 04-27-2022 US KIDNEYS [...] by: ANDREAS AN Date: 2022-04-27 17:48 Normal [facility] CULTURE URINEon 04-16-2022 CULTURE URINE Isolate [...] F Trimethoprim/Sulfame thoxazole <=20 S F Normal [facility] Comment on above: Performed By: #### U RCX #### [facility] Laboratory [address] [place] [address] Dr. Donis Mancini US PREG ANATOMY SINGLEon [...] ESTEFANY BENNETT Date: 2022-04-12 22:[address] [facility] UA RANDOM W/MICROSCOPICon BACTERIA SMALL Abnormal NONE SEEN [facility] Comment on above: Performed By: #### U AMIC #### [facility] [address] [place] [address] Dr. Donis Mancini Bilirubin Ql (U) Negative Normal NEGATIVE The [facility] Comment on above: Performed By: #### U AMIC #### [facility] [address] [place] [address] Dr. Donis Mancini CAST NONE SEEN Normal NONE SEEN [facility] Comment on above: Performed By: #### U AMIC #### [facility] [address] [place] [address] Dr. Donis Mancini Clarity (U) CLEAR Normal CLEAR [facility] Comment on above: Performed By: #### U AMIC #### [facility] [address] [place] [address] Dr. Donis Mancini Color (U) LT. YELLOW Normal YELLOW [facility] Comment on above: Performed By: #### U AMIC #### [facility] [address] [place] [address] Dr. Donis Mancini Crystals LM Nom (Urine sed) NONE SEEN Normal NONE SEEN [facility] Comment on above: Performed By: #### U AMIC #### [facility] [address] [address] [address] Donis Mancini Epithelial cells LM Ql (Urine sed) FEW Abnormal NONE SEEN /RARE [facility] Comment on above: Performed By: #### U AMIC #### [facility] [address] [address] [address] Donis Mancini Glucose Ql (U) Negative Normal NEGATIVE The [facility] Comment on above: Performed By: #### U AMIC #### [facility] [address] [address] [address] Donis Mancini Hemoglobin Ql (U) Negative Normal NEGATIVE The [facility] Comment on above: Performed By: #### U AMIC #### [facility] [address] [address] [address] Donis Mancini Ketones Ql (U) Negative Normal NEGATIVE The [facility] Comment on above: Performed By: #### U AMIC #### [facility] [address] [address] [address] Donis Mancini LEUKOCYTES LARGE Abnormal NEGATIVE [facility] Comment on above: Performed By: #### U AMIC #### [facility] [address] [address] [address] Donis Mancini MUCOUS NONE SEEN Normal NONE SEEN [facility] Comment on above: Performed By: #### U AMIC #### [facility] [address] [address] [address] Donis Mancini Nitrite Ql (U) Negative Normal NEGATIVE The [facility] Comment on above: Performed By: #### U AMIC #### [facility] [address] [address] [address] Donis Mancini pH (U) 5.5 [pH] Normal 5-[address] [facility] Comment on above: Performed By: #### U AMIC #### [facility] [address] [address] [address] Donis Mancini RBC 0-2 Normal 0-[address] [facility] Comment on above: Performed By: #### U AMIC #### [facility] [address] [address] [address] Donis Mancini SPEC GRAVITY <=1.005 Abnormal 1.005-<=1.025 The [facility] Comment on above: Performed By: #### U AMIC #### [facility] [address] [address] [address] Donis Mancini UA PROTEIN Negative Normal NEGATIVE/ TRACE [facility] Comment on above: Performed By: #### U AMIC #### [facility] [address] [address] [address] Donis Mancini Urobilinogen Qn (U) 0.2 {Sarah'U}/dL Normal 0.2 - 1. [address] [facility] Comment on above: Performed By: #### U AMIC #### [facility] [address] [address] [address] Donis Mancini WBC 5-10 Abnormal NONE SEEN [facility] Comment on above: Performed By: #### U AMIC #### [facility] [address] [address] [address] Donis Mancini HEP B SURFACE ANTIGEN SCREEN on 01-23-2022 HBsAg Screen Negative Normal Negative [facility] Comment on above: Performed By: #### U AMIC #### [facility] [address] [address] [address] Donis Mancini HEPATITIS C VIRUS AB W/ REFL EX QUANTon 01-23-2022 HCV AB 0.1 s/co ratio Normal 0.0-0.[address] [facility] Comment on above: Performed By: #### H CVPCRR ####[facility] [id number] [place] [address]Dr. Donis Mancini Interpretation: Comment Normal [facility] Comment on above: Result Comment: Nega tive Not infected with HCV, unless recent infection is suspected or other evidence exists to indicate HCV infection. Performed By: #### H CVPCRR ####[facility] [id number] [place] [address]Dr. Donis Mancini HIV 1 AND 2 WITH REFLEXon HIV Screen 4th Generation wRfx Non-Reactive Normal Non Reactive [facility] Comment on above: Result Comment: HIV Negative HIV-1/HIV-2 antibodies and HIV-1 p24 antigen were NOT detected. There is no laboratory evidence of HIV infection. Performed By: #### H IV12 ####[facility] [id number] [place] [address]Dr. Donis Mancini RPR QUANTon 01-23-2022 Rapid Plasma Reagin, Quant Non-Reactive Normal NonRea<1:[address] [facility] Comment on above: Result Comment: Plea se Note: This test does not meet current guidelines for screening and diagnosis of syphilis. This test is intended for following treatment response in patients being treated for syphilis infection. To screen for syphilis infection, a reflex cascade that includes both RPR and a treponema-specific assay should be utilized, such as Treponema pallidum (Syphilis) Screening [place] (211761) or Rapid Plasma Reagin (RPR) Test With Reflex to Quantitative RPR and Confirmatory Treponema pallidum Antibodies (708135). Performed By: #### R PRQ ####[facility] [address] [place] [address]Dr. Donis Mancini RUBELLA AB IGGon 01-23-2022 Rubella Antibodies, IgG 1.60 index Normal Immune >0.99 [facility] Comment on above: Result Comment: Non- immune <0.90 Equivocal 0.90 - 0.99 Immune >0.99 Performed By: #### U AMIC #### [facility] [address] [place] [address] Dr. Donis Mancini CBC AUTO DIFFon 01-22-2022 BASO # 0.1 103/ul Normal 0.0-0.1 [facility] Comment on above: Performed By: #### U AMIC #### [facility] [address] [address] [address] Donis Mancini Basophils/100 WBC (Bld) 0.5 % Normal 0.2-2.0 [facility] Comment on above: Performed By: #### U AMIC #### [facility] [address] [address] [address] Donis Mancini EO # 0.6 103/ul Normal 0.0-0.7 [facility] Comment on above: Performed By: #### U AMIC #### [facility] [address] [place] [address] Dr. Donis Mancini Eosinophils/100 WBC (Bld) 5.1 % Normal 0.9-7.0 [facility] Comment on above: Performed By: #### U AMIC #### [facility] [address] [place] [address] Dr. Donis Mancini Erythrocyte distribution width (RBC) [Ratio] 12.0 % Normal 11.0-15.0 [facility] Comment on above: Performed By: #### U AMIC #### [facility] [address] [place] [address] Dr. Donis Mancini Hematocrit (Bld) [Volume fraction] 45.8 % Normal 36.0-48.0 [facility] Comment on above: Performed By: #### U AMIC #### [facility] [address] [place] [address] Dr. Donis Mancini Hemoglobin (Bld) [Mass/Vol] 15.3 g/dL Normal 12.0-16.0 [facility] Comment on above: Performed By: #### U AMIC #### [facility] [address] [place] [address] Dr. Donis Mancini IG # 0.03 10e3/ul Normal 0.00-0.03 [facility] Comment on above: Performed By: #### U AMIC #### [facility] [address] [place] [address] Dr. Donis Mancini IG % 0.3 % Normal 0.0-0.[address] [facility] Comment on above: Performed By: #### U AMIC #### [facility] [address] [place] [address] Dr. Donis Mancini LYMPH # 1.7 103/ul Normal 1.2-3.[address] [facility] Comment on above: Performed By: #### U AMIC #### [facility] [address] [place] [address] Dr. Donis Mancini Lymphocytes/100 WBC (Bld) 15.9 % Critically low 20.5-60.0 [facility] Comment on above: Performed By: #### U AMIC #### [facility] [address] [place] [address] Dr. Donis Mancini MANUAL DIFF REQ NO Normal [facility] Comment on above: Performed By: #### U AMIC #### [facility] [address] [place] [address] Dr. Donis Mancini MCH (RBC) [Entitic mass] 31.5 pg Normal 26.7-34.0 [facility] Comment on above: Performed By: #### U AMIC #### [facility] [address] [place] [address] Dr. Donis Mancini MCHC (RBC) [Mass/Vol] 33.4 g/dL Normal 29.9-35.2 [facility] Comment on above: Performed By: #### U AMIC #### [facility] [address] [place] [address] Dr. Donis Mancini MCV (RBC) [Entitic vol] 94.2 fL Normal 81.0-99.0 [facility] Comment on above: Performed By: #### U AMIC #### [facility] [address] [place] [address] Dr. Donis Mancini MONO # 0.6 103/ul Normal 0.3-0.8 [facility] Comment on above: Performed By: #### U AMIC #### [facility] [address] [place] [address] Dr. Donis Mancini Monocytes/100 WBC (Bld) 5.8 % Normal 1.7-12.0 [facility] Comment on above: Performed By: #### U AMIC #### [facility] [address] [place] [address] Dr. Donis Mancini NEUT # 7.8 103/ul Critically high 1.4-6.5 [facility] Comment on above: Performed By: #### U AMIC #### [facility] [address] [place] [address] Dr. Donis Mancini Neutrophils/100 WBC (Bld) 72.4 % Normal 43.0-75.0 [facility] Comment on above: Performed By: #### U AMIC #### [facility] [address] [address] [address] Donis Mancini Platelet mean volume (Bld) [Entitic vol] 9.9 fL Normal 9.5-13.5 [facility] Comment on above: Performed By: #### U AMIC #### [facility] [address] [address] [address] Donis Mancini PLT 281 103/ul Normal 150-[address] [facility] Comment on above: Performed By: #### U AMIC #### [facility] [address] [address] [address] Donis Mancini RBC 4.86 106/ul Normal 4.20-5.40 [facility] Comment on above: Performed By: #### U AMIC #### [facility] [address] [address] [address] Donis Mancini WBC 10.8 103/ul Normal 4.0-11.0 [facility] Comment on above: Performed By: #### U AMIC #### [facility] [address] [address] [address] Donis Mancini CULTURE URINEon 01-22-2022 CULTURE URINE Culture Observations: LIGHT GROWTH OF MIXED GENITAL RAMBO. NO POTENTIAL PATHOGENS SEEN. Normal [facility] Comment on above: Performed By: #### U RCX #### [facility] [address] [address] [address] Donis Mancini GLYCOHEMOGLOBIN A1Con 2021 ADA RECOMMENDATION SEE BELOW Normal [facility] Comment on above: Result Comment: ADA RECOMMENDED LIMIT 4.0 - 6.0 ADA THERAPEUTIC TARGET < 7.0 ACTION SUGGESTED > 7.0 Performed By: #### A 1C ####[facility] [address] [place] [address]Dr. Donis Mancini Glucose [Mass/Vol] 100 mg/dL Normal [facility] Comment on above: Performed By: #### A 1C ####[facility] [address] [place] [address]Dr. Donis Mancini HbA1c (Bld) [Mass fraction] 5.1 % Normal 4.5-6.2 [facility] Comment on above: Performed By: #### A 1C ####[facility] [id number] [place], [place] [address]Ha. Donis Mancini SEAN BOX TEST PT SEND OUTo n 01-22-2022 SENT TO REF LAB 01/22/2022 Normal [facility] Comment on above: Performed By: #### N BOX ####[facility] [address] [place], [place] [address]Iy. Donis Mancini TYPE AND SCREENon 01-22-2022 TYPE AND SCREEN Negative Normal [facility] Comment on above: Performed By: #### T NS #### [facility] [address] [address] [address] Donis Mancini US PREG TVon 01-17-2022 [...] COCO STERN Date: 2022-01-17 09:[address] [facility] Provider Letteron 04-06-2021 Provider Letter April 06, 2021 Dear Amber, We have been trying to reach you with no success. It is important that you return our call regarding your appointment upon receiving this letter. Also, at the time of your call, please provide us with your current information. Thank you for your prompt attention to this matter. Sincerely, [facility] [address] [place] [address] Normal [facility] Ambulatory Clinical Summaryo n 03-10-2021 Ambulatory Clinical Summary {[id number]}CD:[id number] Normal [facility] Ambulatory Clinical Summaryo n 03-05-2021 Ambulatory Clinical Summary {[id number]}CD:[id number] [facility] Gynecology Phone Visit- Tele healthon [...] only communication with the patient located at [address] [place] [phone], with no one else. 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 CODING DATE: 12/18/2020 FINAL [facility] STATUS: Home (Routine DC) PAYOR: Harvey ADMIT DX: REASON FOR VISIT DX: U07.1 [...] Galvan CphT Date Saved: 12/18/2020 12:44 pm [facility] Physician Orderon 12-16-2020 Physician Order [id number] #[id number]:127 Normal [facility] Rapid COVID Antigen ([facility])on 12-16-2020 Rapid COV Int NEG Ctl Pass Normal [facility] Comment on above: Performed By: #### 2 [id number] #### [facility] [address] [place] [address] Rapid COV Int POS Ctl Pass Normal [facility] Comment on above: Performed By: #### 2 [id number] #### [facility] [address] [place] [address] SARS-CoV-2 (COVID-19) RNA INESSA+probe Ql (Unsp spec) Detected Abnormal Not Detected [facility] Comment on above: Result Comment: Left a message for callback. 12/16/2020 11:42:47 EDT Results faxed to infection control. The Luminal? System for Rapid Detection of SARS-CoV-2 is [...] in vitro diagnostic use. In the [facility], only for use under an Emergency Use [...] other viruses or pathogens; and, in the [facility], this test is only authorized for the duration of the declaration that circumstances exist justifying the authorization of emergency use of in vitro diagnostics for detection and/or diagnosis of the virus that causes COVID-19 under Section 564(b)(1) of the Act, 21 U.S.C. ? 360bbb-3(b)(1), unless the authorization is terminated or revoked sooner. Performed By: #### 2 [id number] #### [facility] [address] [place] [address] Employed in Healthcare Unknown [facility] Comment on above: Performed By: #### 2 [id number] #### [facility] [address] [place] [address] First Test Unknown Normal [facility] Comment on above: Performed By: #### 2 [id number] #### [facility] [address] [place] [address] Hospitalized? NO Normal [facility] Comment on above: Performed By: #### 2 [id number] #### [facility] [address] [place] [address] ICU NO Normal [facility] Comment on above: Performed By: #### 2 [id number] #### [facility] [address] [place] [address] ? Unknown Normal [facility] Comment on above: Performed By: #### 2 [id number] #### [facility] [address] [place] [address] [facility] Unknown Normal [facility] Comment on above: Performed By: #### 2 [id number] #### [facility] [address] [place] [address] Symptomatic as defined by CDC YES Normal [facility] Comment on above: Performed By: #### 2 [id number] #### [facility] [address] [place] [address] [facility] Ambulatory Clinical Summary {[id number]}CD:[id number] Normal [facility] Vital Signs Date Time Vital Sign Value Performing Clinician Facility 02-20-2025 16:08-0400 Body mass index (BMI) [Ratio] 28.83 kg/m2 Rossana BISWAS Work Phone: [facility] 02-20-2025 16:08-0400 Body weight 73.82 kg Rossana BISWAS Work Phone: [facility] 02-20-2025 16:08-0400 Diastolic blood pressure 82 mm[Hg] Rossana BISWAS Work Phone: [facility] 02-20-2025 16:08-0400 Systolic blood pressure 110 mm[Hg] Rossana BISWAS Work Phone: [facility] 01-14-2025 15:42-0400 Body mass index (BMI) [Ratio] 27.3 kg/m2 Jose Michael DO Work Phone: [facility] 01-14-2025 15:42-0400 Body weight 69.91 kg Jose Michael DO Work Phone: [facility] 01-14-2025 15:42-0400 Diastolic blood pressure 70 mm[Hg] Jose Michael DO Work Phone: [facility] 01-14-2025 15:42-0400 Systolic blood pressure 120 mm[Hg] Jose Michael DO Work Phone: [facility] 08-20-2024 10:55-0500 Body mass index (BMI) [Ratio] 25.93 kg/m2 Rossana BISWAS Work Phone: [facility] 08-20-2024 10:55-0500 Body weight 66.41 kg Rossana BISWAS Work Phone: [facility] 08-20-2024 10:55-0500 Diastolic blood pressure 70 mm[Hg] Rossana BISWAS Work Phone: [facility] 08-20-2024 10:55-0500 Systolic blood pressure 120 mm[Hg] Rossana BISWAS Work Phone: [facility] 08-06-2024 09:38-0500 Body mass index (BMI) [Ratio] 25.47 kg/m2 Jose Michael DO Work Phone: [facility] 08-06-2024 09:38-0500 Body weight 65.23 kg Jose Michael DO Work Phone: [facility] 08-06-2024 09:38-0500 Diastolic blood pressure 70 mm[Hg] Jose Michael DO Work Phone: [facility] 08-06-2024 09:38-0500 Systolic blood pressure 120 mm[Hg] Jose Michael DO Work Phone: [facility] 06-29-2024 09:12-0400 Body mass index (BMI) [Ratio] 24.58 kg/m2 [facility] Nurse [facility] 06-29-2024 09:12-0400 Body weight 62.94 kg [facility] Nurse [facility] 06-29-2024 09:12-0400 Diastolic blood pressure 72 mm[Hg] [facility] Nurse [facility] 06-29-2024 09:12-0400 Systolic blood pressure 122 mm[Hg] [facility] Nurse [facility] 12-26-2022 13:45-0400 Body height 160.02 cm Jennifer Huston Other [employer] Other 12-26-2022 13:45-0400 Body mass index (BMI) [Ratio] 27.45 kg/m2 Jennifer Betzaida Other [employer] Other 12-26-2022 13:45-0400 Body temperature 97 [degF] Jennifer Betzaida Other [employer] Other 12-26-2022 13:45-0400 Body weight 70.31 kg Jennifer Betzaida Other [employer] Other 12-26-2022 13:45-0400 Diastolic blood pressure 89 mm[Hg] Jennifer Betzaida Other [employer] Other 12-26-2022 13:45-0400 Respiratory rate 18 /min Jennifer Betzaida Other [employer] Other 12-26-2022 13:45-0400 SaO2% (BldA) [Mass fraction] 100 % Jennifer Betzaida Other [employer] Other 12-26-2022 13:45-0400 Systolic blood pressure 135 mm[Hg] Jennifer Huston Other [facility] [employer] Other Encounters Encounter Date Encounter Type Care Provider Facility Start: 02-20-2025 End: 02-20-2025 Patient encounter procedure Rossana BISWAS Work Phone: [facility] Start: 02-20-2025 End: 02-20-2025 flow sheet Rossana BISWAS Work Phone: [facility] Comment on above: Screening, , for anatomic survey; Well woman exam with routine gynecological exam; STD exposure; Second trimester ; 18 weeks gestation of ; Urinary frequency Start: 02-20-2025 End: 02-20-2025 ambulatory ROSSANA LEACH Not Available Start: 02-20-2025 End: 02-20-2025 Bamboo flowsheet Rossana BISWAS Work Phone: [facility] Start: 02-20-2025 End: 02-23-2025 Bamboo flowsheet Rossana BISWAS Work Phone: [facility] Start: 02-20-2025 End: 02-23-2025 Clinisync Result Encounter Rossana BISWAS Work Phone: [facility] Unsolicited Start: 02-20-2025 End: 02-22-2025 External Result Encounter Rossana BISWAS Work Phone: [facility] Unsolicited Start: 01-14-2025 End: 01-14-2025 flow sheet Jose Michael DO Work Phone: [facility] Comment on above: 13 weeks gestation o f ; Second trimester Start: 01-14-2025 End: 01-14-2025 ambulatory JOSE MICHAEL Not Available Start: 01-14-2025 End: 01-14-2025 Bamboo flowsheet Jose Michael DO Work Phone: [facility] Start: 01-14-2025 End: 01-14-2025 Bamboo flowsheet Jose Michael DO Work Phone: [facility] Start: 01-05-2025 End: 01-05-2025 Clinisync Result Encounter Jose Michael DO Work Phone: [facility] Unsolicited Start: 01-05-2025 End: 01-05-2025 Clinisync Result Encounter Jose Michael DO Work Phone: [facility] Unsolicited Start: 12-14-2024 End: 12-14-2024 ambulatory JOSE MICHAEL Not Available Start: 11-21-2024 End: 11-21-2024 Clinisync Result Encounter Jose Michael DO Work Phone: [facility] Unsolicited Start: 11-21-2024 End: 11-21-2024 Clinisync Result Encounter Jose Michael DO Work Phone: [facility] Unsolicited Start: 11-19-2024 End: 11-19-2024 Clinisync Result Encounter Jose Michael DO Work Phone: [facility] Unsolicited Start: 11-19-2024 End: 11-19-2024 Clinisync Result Encounter Jose Michael DO Work Phone: [facility] [...] Start: 08-18-2024 End: 08-18-2024 Clinisync Result Encounter Jose Michael DO Work Phone: [facility] Unsolicited Start: 08-18-2024 End: 08-18-2024 Clinisync Result Encounter Jose Michael DO Work Phone: [facility] Unsolicited Start: 08-10-2024 End: 08-10-2024 Clinisync Result Encounter Jose Michael DO Work Phone: [facility] Unsolicited Start: 08-10-2024 End: 08-10-2024 Clinisync Result Encounter Jose Michael DO Work Phone: [facility] Unsolicited Start: 08-10-2024 End: 08-10-2024 ambulatory PHYSICIAN NO [facility] Work Phone: Start: 08-10-2024 End: 08-10-2024 Departed Referred PHYSICIAN NO [facility] Start: 08-06-2024 End: 08-06-2024 Bamboo flowsheet Jose Michael DO Work Phone: [facility] Start: 08-06-2024 End: 08-06-2024 Bamboo flowsheet Jose Michael DO Work Phone: [facility] Start: 08-06-2024 End: 08-06-2024 ambulatory JOSE MICHAEL Not Available Start: 08-06-2024 End: 08-06-2024 Office outpatient visit 15 minutes Jose Michael DO Work Phone: [facility] Comment on above: Miscarriage Start: 07-21-2024 End: 07-21-2024 Clinisync Result Encounter Jose Michael DO Work Phone: [facility] Unsolicited Start: 07-21-2024 End: 07-21-2024 Clinisync Result Encounter Jose Michael DO Work Phone: [facility] Unsolicited Start: 06-29-2024 End: 06-29-2024 Office outpatient visit 5 minutes [facility] Michael Nurse [facility] Comment on above: GA: 7w1d Start: 06-29-2024 End: 06-29-2024 ambulatory JOSE DCO Not Available Start: 12-26-2022 Office outpatient ne w 20 minutes Jennifer Huston [facility] Start: 12-26-2022 End: 12-26-2022 ambulatory Jennifer Betzaida Other [facility] [employer] Other Start: 12-26-2022 End: 12-26-2022 Patient encounter procedure ICE CRUSHER-C Jennifer Huston Work Phone: [facility] Work Phone: Start: 11-02-2022 End: 11-02-[address] JOSE RODRIGUEZ . Facility: Start: 08-16-2022 End: 08-16-[address] DOCTOR ATWOOD Facility: Start: 08-10-2022 End: 08-12-2022 Evaluation and management of inpatient DR DOCTOR ATWOOD Facility: Start: 08-07-2022 End: 08-07-[address] DOCTOR ATWOOD Facility: Start: 07-31-2022 End: 07-31-[address] JOSE RODRIGUEZ . Facility:[facility] Start: 07-29-2022 End: 07-29-[address] JOSE RODRIGUEZ . Facility: Start: 07-24-2022 End: 07-24-[address] JOSE RODRIGUEZ . Facility:[facility] Start: 07-10-2022 End: 07-11-[address] JOSE RODRIGUEZ . Facility:[facility] Start: 07-06-2022 End: 07-06-[address] DOCTOR ATWOOD Facility:[facility] Start: 06-14-2022 End: 06-15-[address] JOSE RODRIGUEZ . Facility:[facility] Start: 06-03-2022 End: 06-04-[address] JOSE RODRIGUEZ . Facility:[facility] Start: 05-21-2022 End: 05-22-[address] JOSE RODRIGUEZ . Facility:[facility] Start: 05-10-2022 End: 05-10-[address] JOSE RODRIGUEZ . Facility:[facility] Start: 05-10-2022 End: 05-10-[address] DOCTOR ATWOOD Facility:[facility] Start: 05-03-[address] JOSE RODRIGUEZ . Facili ty:[facility]1 Start: 04-27-2022 End: 04-27-[address] JOSE RODRIGUEZ . Facility:[facility] Start: 04-12-2022 End: 04-12-[address] JOSE RODRIGUEZ . Facility:[facility] Start: 04-12-2022 End: 04-13-[address] JOSE RODRIGUEZ . Facility:[facility] Start: 03-26-2022 End: 03-27-[address] JOSE RODRIGUEZ . Facility:[facility] Start: 01-22-2022 End: 01-23-[address] JOSE RODRIGUEZ . Facility:[facility] Start: 01-14-2022 End: 01-15-[address] JOSE RODRIGUEZ . Facility: Procedures Date Procedure Procedure Detail Performing Clinician Start: 02-20-2025 RECURRENT VAGINITIS (HTRX) Rossana BISWAS Work Phone: Start: 02-20-2025 Urnls dip stick/tabl et rgnt non-auto w/o micrscp Rossana BISWAS Work Phone: Start: 02-20-2025 IGP,APTIMA HPV,AGE GDLN Rossana BISWAS Work Phone: Start: 01-14-2025 Urnls dip stick/tabl et rgnt non-auto w/o micrscp Jose Michael DO Work Phone: Start: 01-05-2025 ALL CBC WITH AUTO DIFF Jose Michael DO Work Phone: Start: 11-21-2024 [facility] PREG QUANT HCG Core y Michael DO Work Phone: Start: 11-19-2024 [facility] PREG QUANT HCG Core y Michael DO Work Phone: Start: 08-18-2024 [facility] PREG QUANT HCG Core y Michael DO Work Phone: Start: 08-10-2024 ALL CBC WITH AUTO DIFF Jose Michael DO Work Phone: Start: 08-10-2024 [facility] PREG QUANT HCG Muna y Michael DO Work Phone: Start: 07-21-2024 ALL CBC WITH AUTO DIFF Jose Dco DO Work Phone: Start: 07-21-2024 [facility] DRUG SCREEN RAPI D (URINE) Jose Dco DO Work Phone: Start: 06-29-2024 End: 06-29-2024 Urnls dip stick/tablet rgnt non-auto w/o micrscp Jose Dco DO Work Phone: Start: 12-26-2022 Plain X-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 hand ICE CRUSHER-C Jennifer Huston Work Phone: Start: 11-02-2022 Cytp cerv/vag auto t hin layer prep mnl screen Jose Dco DO Work Phone: Start: 08-10-2022 Delivery of Products of Conception, External Approach DR JOSE RODRIGUEZ . Start: 08-10-2022 Division of Female Perineum, External Approach DR JOSE RODRIGUEZ . Start: 08-10-2022 Drainage of Amniotic Fluid, Therapeutic from Products of Conception, Via Natural or Artificial Opening DR JOSE RODRIGUEZ . Start: 08-10-2022 Introduction of Othe r Hormone into Peripheral Vein, Percutaneous Approach DR JOSE RODRIGUEZ . Plan of Treatment Date Care Activity Detail Author Start: 05-27-2025 Influenza vaccination Influenz a Vaccine (Season Ended) [facility] Start: 03-14-2025 End: 03-14-2025 Patient encounter procedure 03/14/2025 10:50 AM EDT Routine [facility] [address] [place] [address] Jose Rodriguez DO [address] [place] [address] [facility] Start: 02-20-2025 End: 02-20-2025 Patient encounter procedure [facility] Comment on above: Arrived Start: 02-20-2025 End: 04-22-2025 Alpha fetoprotein, maternal Alpha fetoprotein, maternal Lab Routine 18 weeks gestation of Expected: 02/20/2025 (Approximate), Expires: 04/22/2025 [facility] Comment on above: Expected: 02/20/2025 (Approximate), Expires: 04/22/2025 Start: 02-20-2025 End: 05-23-2025 US for US OB 14+ weeks anatomy scan Imaging Routine Screening, , for anatomic survey Expected: 02/20/2025, Expires: 05/23/2025 [facility] Comment on above: Expected: 02/20/2025 , Expires: 05/23/2025 Start: 01-14-2025 End: 01-14-2025 Patient encounter procedure [facility] Comment on above: Arrived Start: 12-14-2024 End: 12-14-2024 ambulatory 12/14/2024 9:00 AM EDT Initial [facility] [address] [place] [id number] [facility] Start: 12-14-2024 End: 12-14-2024 Professional / ancillary services management 12/14/2024 8:30 AM EDT Ancillary Procedure [facility] [address] [place] [phone] [facility] Start: 08-20-2024 End: 08-20-2024 Patient encounter procedure 08/20/2024 10:20 AM EST Office Visit [facility] [address] [place] [id number] Rossana Leach PA [address] [place] [address] [facility] Start: 08-06-2024 End: 08-06-2024 Patient encounter procedure 08/06/2024 9:10 AM EST Routine [facility] [address] [place] [phone] Jose Rodriguez, [address] [place], [place] [id number] [facility] Start: 06-29-2024 End: 06-29-2025 ABO/Rh ABO/Rh Lab Routine Missed menses , unspecified gestational age Expected: 06/29/2024 (Approximate), Expires: 06/29/2025 [facility] Comment on above: Expected: 06/29/2024 (Approximate), Expires: 06/29/2025 Start: 06-29-2024 End: 06-29-2025 Blood type and Indirect antibody screen panel - Blood Type and screen Lab Routine Missed menses , unspecified gestational age Expected: 06/29/2024 (Approximate), Expires: 06/29/2025 [facility] Work Phone: Comment on above: Expected: 06/29/2024 (Approximate), Expires: 06/29/2025 Start: 06-29-2024 End: 06-29-2025 Drugs of abuse panel - Urine by Screen method Rapid drug screen, urine Lab Routine , unspecified gestational age Encounter for supervision of normal first in first trimester Expected: 06/29/2024 (Approximate), Expires: 06/29/2025 [facility] Comment on above: Expected: 06/29/2024 (Approximate), Expires: 06/29/2025 Start: 06-29-2024 End: 06-29-2025 US Pelvis transvaginal US OB transvaginal Imaging Routine Missed menses Expected: 06/29/2024 (Approximate), Expires: 06/29/2025 [facility] Comment on above: Expected: 06/29/2024 (Approximate), Expires: 06/29/2025 Start: 05-27-2024 Influenza vaccination Influenza Vacc ine (#1) [facility] Bacteria identified in Urine by Culture Urine culture Microbiology Routine Missed menses Ordered: 06/29/2024 [facility] Comment on above: Ordered: 06/29/2024 Bacteria identified in Urine by Culture Urine culture Microbiology Routine Urinary frequency Ordered: 02/20/2025 [facility] Comment on above: Ordered: 02/20/2025 CBC W Auto Different ial panel - Blood CBC and differential Lab Routine Missed menses , unspecified gestational age Ordered: 06/29/2024 [facility] Comment on above: Ordered: 06/29/2024 CHLAMYDIA TRACHOMATI S (GENITO/STI) CHLAMYDIA TRACHOMATIS (GENITO/STI) Lab Routine STD exposure Ordered: 02/20/2025 [facility] Comment on above: Ordered: 02/20/2025 Cytology Cervical or vaginal smear or scraping study Pap Smear Pathology and Cytology Routine Well woman exam with routine gynecological exam Ordered: 02/20/2025 [facility] Comment on above: Ordered: 02/20/2025 Hemoglobin A1c/Hemoglobin.total in Blood Hemoglobin A1c Lab Routine Missed menses , unspecified gestational age Ordered: 06/29/2024 [facility] Comment on above: Ordered: 06/29/2024 Hepatitis B virus surface Ag [Presence] in Serum or Plasma by Immunoassay Hepatitis B surface antigen Lab Routine Missed menses , unspecified gestational age Ordered: 06/29/2024 [facility] Comment on above: Ordered: 06/29/2024 Hepatitis C virus Ab [Presence] in Serum or Plasma by Immunoassay Hepatitis C antibody Lab Routine Missed menses , unspecified gestational age Ordered: 06/29/2024 [facility] Comment on above: Ordered: 06/29/2024 HIV-1/HIV-2 antigen/antibody combination immunoassay HIV-1 and HIV-2 antibodies Lab Routine Missed menses , unspecified gestational age Ordered: 06/29/2024 [facility] Comment on above: Ordered: 06/29/2024 Neisseria gonorrhoea e DNA [Presence] in Unspecified specimen by INESSA with probe detection Neisseria gonorrhea DNA probe, direct Lab Routine STD exposure Ordered: 02/20/2025 [facility] Comment on above: Ordered: 02/20/2025 Reagin Ab [Presence] in Serum by RPR RPR Lab Routine Missed menses , unspecified gestational age Ordered: 06/29/2024 [facility] Comment on above: Ordered: 06/29/2024 Rubella antibody, IgG Rubella an tibody, IgG Lab Routine Missed menses , unspecified gestational age Ordered: 06/29/2024 [facility] Comment on above: Ordered: 06/29/2024 SURESWAB(R) ADVANCED VAGINITIS PLUS, TMA SURESWAB(R) ADVANCED VAGINITIS PLUS, TMA Pathology and Cytology Routine STD exposure Ordered: 02/20/2025 [facility] Work Phone: Comment on above: Ordered: 02/20/2025 Immunizations Immunization Date Immunization Notes Care Provider Ryne abrams 08-28-2002 influenza virus vacc ine, unspecified formulation Noms Nurse [facility] Payers Date Payer Category Payer Medicaid [employer] [place] [employer] [id number] 2023-Present [address] [place] [address] [id number] 2023 Medicaid (Managed Care) [facility] MEDICAID [id number] 2021 Blue [employer] Blue Shield [id number] 2021 Unknown BCBS BCBS [id number] [id number] 2021-Present [phone] [address] [place] [address] [id number]. [id number] 2001 Unknown [id number] 2.16.840.1.637999.3.579.2. 593 2001 Unknown [id number] 2.16.840.1.237317.3.579.2. 593 2001 Unknown [id number] 2.16.840.1.708750.3.579.2. 593 2001 Unknown [id number] 2.16.840.1.262651.3.579.2. 593 2001 Unknown [id number] 2.16.840.1.769140.3.579.2. 593 2001 Unknown [id number] 2.16.840.1.422256.3.579.2. 593 2001 Unknown [id number] 2.16.840.1.896589.3.579.2. 593 2001 Unknown [id number] 2.16.840.1.635418.3.579.2. 593 2001 Unknown [id number] 2.16.840.1.914033.3.579.2. 593 2001 Unknown [id number] 2.16.840.1.727592.3.579.2. 593 2001 Unknown [id number] 2.16840.1.851231.3.579.2. 593 2001 Unknown [id number] 2.16.840.1.647081.3.579.2. 593 2001 Unknown [id number] 2.16.840.1.994426.3.579.2. 593 2001 Unknown [id number] 2.16840.1.571206.3.579.2. 593 2001 Unknown [id number] 2.16840.1.748272.3.579.2. 593 2001 Unknown [id number] 2.16.840.1.072000.3.579.2. 593 2001 Unknown [id number] 2.16.840.1.485040.3.579.2. 593 2001 Unknown [id number] 2.16.840.1.129718.3.579.2. 593 2001 Unknown [id number] 2.16840.1.852938.3.579.2. 59 2001 Unknown [id number] 2.16.840.1.907291.3.579.2. 593 2001 Unknown [id number] 2.16.840.1.119895.3.579.2. 593 2001 Unknown [id number] 2.16.840.1.492083.3.579.2. 9 2001 Unknown [id number] 2.16.840.1.115309.3.579.2. 9 2001 Unknown [id number] 2.16.840.1.363304.3.579.2. 9 2001 Unknown [id number] 2.16.840.1.984271.3.579.2. 9 2001 Unknown [id number] 2.16.840.1.845675.3.579.2. 9 2001 Unknown [id number] 2.16.840.1.270265.3.579.2. 9 2001 Unknown [id number] 2.16.840.1.692166.3.579.2. 1259 1959 Self-pay 1959 Unknown [id number] 1959 Unknown [id number] Unknown [id number] 2.16.840.1.231333.3.579.2. 593 Unknown [id number] 2.16.840.1.523034.3.579.2. 531 Social History Date Type Detail Facility Start: 10-13-2023 End: 06-29-2024 Sex Assigned At [facility] [employer] Other Start: 2001 Sex Assigned At Female F [facility] Start: 10-13-2023 Tobacco smoking stat [facility] Never smoked tobacco [facility] Start: 06-29-2024 End: 01-14-2025 Alcoholic beverage intake Current drinker of alcohol (finding) [facility] Start: 10-13-2023 End: 06-29-2024 History of Social function [facility] Start: 05-24-2024 [facility] Start: 2001 Sex assigned at Not on file [facility] Work Phone: Start: 08-11-2024 Sex Female (finding) [facility] Clinical Notes 12-26-2022 to 02-20-2025 TRUE Argueta - 02/20/2025 3:40 PM EDTSkhai Borja LPN - 01/14/2025 3:40 PM TRUE Navarro - 08/20/2024 10:20 AM ESTSusasihreen Borja LPN - 08/06/2024 9:10 AM EST Note Date & Type Note Facility 02-20-2025 History of Presen t illness Narrative Reason for Appointment: Patient ID: Amber Funes is a 24 y.o. female who presents for Routine Visit Patient presents today for Annual Exam., STD Check., and Return OB appointment. MEDICATIONS Current Outpatient Medications [...] Constitutional: Appearance: Normal appearance. She is well-developed. Genitourinary: Vulva normal. Breasts: Breasts are soft. Right: Normal. Left: Normal. Cardiovascular: Rate and Rhythm: Normal rate and [...] nursing note reviewed. Exam conducted with a landcare facilitator present. Vitals: Estimated body mass index is 28.83 kg/m as calculated from the following: Height as of 01/06/23: 5' 3 . Weight as of this encounter: 162 lb 12 oz. BP: 110/82 Patient's last menstrual period was 10/15/2024 (exact date). ASSESSMENT & PLAN ICD-10-CM 1. Screening, , for anatomic survey Z36.89 US OB 14+ weeks anatomy scan US OB 14+ weeks anatomy scan 2. Well woman exam with routine gynecological exam Z01.419 Pap Smear 3. STD exposure Z20.2 SURESWAB(R) ADVANCED VAGINITIS PLUS, TMA CHLAMYDIA TRACHOMATIS (GENITO/STI) Neisseria gonorrhea DNA probe, direct 4. Second trimester Z34.92 5. 18 weeks gestation of Z3A.18 POCT urinalysis dipstick manually resulted Alpha fetoprotein, maternal Alpha fetoprotein, maternal 6. Urinary frequency R35.0 Urine culture Return OB/Annual Exam: Patient presents today for a annual exam/routine obstetrics appointment. Patient is currently 18w2d . Patient states she is doing well but has complaints of nausea in the morning. Pap and cultures was obtained without difficulty and patient was given orders for anatomy scan and msAFP to be obtained. Orders Placed This Encounter Procedures Urine culture US OB 14+ weeks anatomy scan CHLAMYDIA TRACHOMATIS (GENITO/STI) Neisseria gonorrhea DNA probe, direct Alpha fetoprotein, maternal POCT urinalysis dipstick manually resulted Follow Up: Patient is to schedule annual exam for next year and return to office in 4 weeks for OB appointment. Documented by Meghana Felder LPN on behalf of: TRUE Argueta documented in this encounter [facility] 01-14-2025 History of Presen t illness Narrative [...] nursing note reviewed. Exam conducted with a landcare facilitator present. Vitals: Estimated body mass index is [...] meat, and stay away from [facility]. Patient has been consulted regarding any further do's and don'ts of . Patient voiced understanding and all questions and concerns were answered. Patient is able to discontinue vaginal progesterone at this time. Orders Placed This Encounter Procedures POCT urinalysis dipstick manually resulted Follow Up: Patient is to return in 4 weeks for routine OB appointment. Documented by Diamond Borja LPN on behalf of: Jose Rodriguez DO documented in this encounter [facility] 08-20-2024 History of Presen t illness Narrative [...] calculated from the following: Height as of 4/13/23: 5' 3 . Weight as of this encounter: 146 lb 6.4 oz. BP: 120/70 No LMP recorded. ASSESSMENT & PLAN ICD-10-CM 1. Postoperative examination Z09 Post Op Follow Up: Patient presents today for a postop follow up after having a D&C Hysteroscopy performed at [facility] with Dr. Rodriguez. Pathology results was reviewed with the patient in great detail and all restrictions have been lifted. Follow Up: Patient is to return to the office for annual exam unless needed otherwise. Documented by TRUE Argueta on behalf of: TRUE Argueta documented in this encounter [facility] 08-06-2024 History of Presen t illness Narrative [...] nursing note reviewed. Exam conducted with a landcare facilitator present. Vitals: Estimated body mass index is [...] vaginal bleeding. Patient to discuss date with Beam House Inspector prior to leaving. Patient is able to obtain work note for the week and if longer is needed she will reach out to office. Documented by Diamond Borja LPN on behalf of: Jose Rodriguez DO documented in this encounter [facility] 06-29-2024 History of Presen t illness Narrative [...] meat, and stay away from [facility]. Patient has also been advised to [...] by: Whitney Peacock documented in this encounter [facility] 12-26-2022 Evaluation note Encounter Date Diagnosis Assessment [...] appointment to be seen soon as possible [employer] Other Evaluation noteNo assessment information available [facility] Work Phone: Evaluation note* Diagnosis Missed menses , unspecified gestational age Encounter for supervision of normal first in first trimester Nausea Nausea alone 7 weeks gestation of [facility] Diagnosis Miscarriage Unspecified spontaneous without mention of complication documented in this encounter [facility] note* Diagnosis Postoperative examination Follow-up examination, following unspecified surgery documented in this encounter [facility] [employer] note* Diagnosis 13 weeks gestation of Second trimester state, incidental [facility] Diagnosis Screening, , for anatomic survey Encounter for anatomic survey Well woman exam with routine gynecological exam Routine gynecological examination STD exposure Second trimester state, incidental 18 weeks gestation of Urinary frequency documented in this encounter [facility] Summary Purpose Family History No Family History Records FoundNo Family History Records FoundNo Family History Records FoundNo Family History Records Found Advance Directives Advance Directive Response Recorded Date/ Time Advance Directives No December 27 6:21am Additional Source Comments INFORMATION SOURCE (unrecogn ized section and content) DATE CREATED AUTHOR 09/24/2021 Jossue Hunt [facility] DATE CREATED AUTHOR AUTHOR'S ORGANIZ ATION 12/07/2022 [facility] DATE CREATED AUTHOR AUTHOR'S ORGANIZ ATION 08/15/2024 [facility] DATE CREATED AUTHOR AUTHOR'S ORGANIZ ATION 02/23/2025 [facility] EPIC REASON FOR VISIT (unrecogniz ed section and content) Reason Comments Initial Visit Reason Comments Miscarriage Reason Comments Post-op Visit Reason Comments Routine Visit Care Teams (unrecognized sec tion and content) Team Status: Inactive Member Role Status Dates Jennifer Huston ICE CRUSHER-C Attending Provider Active Chief Operator Reformer Relationship Specialty Start Date End Date Vaishali Zapata MD [address] [place] [address] PCP - General Family Medicine 02/04/23 Chief Operator Reformer Relationship Specialty Start Date End Date Vaishali Zapata MD [address] [place] [address] PCP - General Family Medicine 02/04/23 Team Status: Active Member Role Status Dates PHYSICIAN NO FAMILY Primary Care Provider Active Team Status: Inactive Member Role Status Dates PHYSICIAN NO FAMILY Primary Care Provider Active Start: August 10, 2024 End: August 10, 2024 Jose Rodriguez DO Attending Provider Active Start : August 10, 2024 End: August 10, 2024 Chief Operator Reformer Relationship Specialty Start Date End Date Unallocated, MD Cj [place] [place] [address] PCP - General Family Medicine 08/03/24 Chief Operator Reformer Relationship Specialty Start Date End Date Unallocated[place] [address] PCP - General Family Medicine 08/03/24 Chief Operator Reformer Relationship Specialty Start Date End Date Unallocated[place] [address] PCP - General Family Medicine 08/03/24 Chief Operator Reformer Relationship Specialty Start Date End Date Unallocated, Rey Vo MD [address] [place] [address] PCP - General Family Medicine 08/03/24 Chief Operator Reformer Relationship Specialty Start Date End Date Unallocated, [facility] [place] [address] PCP - General Family Medicine 08/03/24 Chief Operator Reformer Relationship Specialty Start Date End Date Unallocated, Rey Vo MD [address] [place] [address] PCP - General Family Medicine 08/03/24 Goals [...] BE BASED ON THE PRIMARY CLINICAL RECORDS. [facility] [email or web address] [facility]. provides no warranty or guarantee of the accuracy or completeness of information in this document.
--- OUTSIDE RECORDS SUMMARY | 2025-03-08 19:02 | XMS_ITS | Encounter Summary ---
Author Organization [facility] Address [address] [place] [address] Care Team Providers Care Country Singer Name Role Phone Unallocated, Noms Provider Primary Care Provi krissy Encounter Details Date Type Department Care Team (Late st Contact Info) Description 08/10/2024 Clinisync Result Encounter [facility] External Department Unsolicited Mackenzie Rodriguez, DO [address] [place], [place] [id number] Social History Tobacco Use Types Packs/Day Years [...] Routine [facility] BCP OB [address] [place] [phone] Mackenzie Rodriguez DO [address] [place] [address] documented as of this encounter Procedures Procedure Name Priority Date/Time Associated Diagnosis Comments US OB TRANSVAGINAL 08/10/2024 8: 44 AM EST documented in this encounter Results * US OB TRANSVAGINAL (08/10/2024 8:44 AM EST) Anatomical Region Laterality Modality Other 08/10/2024 8:44 AM EST Narrative 08/10/2024 8:47 [place] [address] Ultrasound Report Signed Patient: AMBER PIZANO MR#: [id number] : 2000 Acct:[id number] Age/Sex: 24 / F ADM Date: 08/10/24 Loc: SURGOUT Attending Dr: Mackenzie Rodriguez D.O. Ordering Physician: Mackenzie Rodriguez D.O. Date of Service: 08/10/24 Procedure(s): US OB transvaginal Accession Number(s): [id number] cc: LUIS SEE ; Mackenzie Rodriguez D.O. The [place] [address] Patient Name: AMBER PIZANO MRN: [id number] date: 2000 Sex: F Assigned Patient Location: [facility] Current Patient Location: [facility] Accession/Order Number: [id number] Exam Date: 08/10/2024 08:10 Report Date: 08/10/2024 [...] M.D. Signed By: 08/10/2447 DD/ 3 TD/TT: Umbrella Repairer: Procedure Note Radiology, Radiologist, MD - 08/10/2024 [place] [address] Ultrasound Report Signed Patient: AMBER PIZANO MMR#: [id number] : 2000Acct:[id number] Age/Sex: 24 / FADM Date: 08/10/24 Loc: SURGOUT Attending Dr: Mackenzie Rodriguez D.O. Ordering Physician: Mackenzie Rodriguez D.O. Date of Service: 08/10/24 Procedure(s): US OB transvaginal Accession Number(s): [id number] cc: LUIS SEE ; Mackenzie Rodriguez D.O. The [place] [address] Patient Name: AMBER PIZANO MRN: [id number] date: 2000 Sex: F Assigned Patient Location: [facility] Current Patient Location: [facility] Accession/Order Number: [id number] Exam Date: 08/10/2024 08:10 Report Date: 08/10/2024 [...] Lavon Herrera M.D. Signed By:08/10/2447 DD/ TD/TT: Umbrella Repairer: us Mackenzie Michael DO [facility] Final Result documented in this encounter Visit Diagnoses Not on filedocumented in this encounter Care Teams Country Singer Relationship Specialty Start Date End Date Unallocated, Noms Provider, [address] [place] [address] PCP - General Family Medicine 08/03/24 documented as of this encounter
--- OUTSIDE RECORDS SUMMARY | 2025-03-08 19:02 | XMS_ITS | Encounter Summary ---
Author Organization [facility] Address [address] [place] [address] Care Team Providers Care Traffic Controller Cable Name Role Phone Vaishali Chaidez MD Primary Care Provider Bipin cheng Unallocated, Noms Provider Primary Care Provi krissy Encounter Details Date Type Department Care Team (Late st Contact Info) Description 06/29/2024 Clinisync Result Encounter [facility] External Department Unsolicited Mackenzie Rodriguez, DO [address] [place], [place] [phone] Social History Tobacco Use Types Packs/Day Years [...] [facility] BCP OB [address] [place] [phone] Mackenzie Rodriguez, DO [address] [place] [address] documented as of this encounter Procedures Procedure Name Priority Date/Time Associated Diagnosis Comments US OB TRANSVAGINAL 06/29/2024 9: 11 AM EDT documented in this encounter Results * US OB TRANSVAGINAL (06/29/2024 9:11 AM EDT) Anatomical Region Laterality Modality Other 06/29/2024 9:11 AM EDT Narrative 06/29/2024 9:14 [place] [address] Ultrasound Report Signed Patient: Vimal Pizano MR#: [id number] : 2000 Acct:[id number] Age/Sex: 24 / F ADM Date: 06/29/24 Loc: [facility] Attending Dr: Mackenzie Rodriguez D.O. Ordering Physician: Mackenzie Rodriguez D.O. Date of Service: 06/29/24 Procedure(s): US OB transvaginal Accession Number(s): [id number] cc: Mackenzie Rodriguez D.O.; VAISHALI CHAIDEZ [place] [address] Patient Name: VIMAL PIZANO MRN: [id number] date: 2000 Sex: F Assigned [facility] Accession/Order Number: [id number] Exam Date: 06/29/2024 08:37 Report Date: 06/29/2024 [...] M.D. Signed By: 06/29/24913 DD/ 0 TD/TT: Register Of Deeds: Procedure Note Radiology, Radiologist, MD - 06/29/2024 [place] [address] Ultrasound Report Signed Patient: Vimal Pizano MMR#: [id number] : 2000Acct:[id number] Age/Sex: 24 / FADM Date: 06/29/24 Loc: [facility] Attending Dr: Mackenzie Rodriguez D.O. Ordering Physician: Mackenzie Rodriguez D.O. Date of Service: 06/29/24 Procedure(s): US OB transvaginal Accession Number(s): [id number] cc: Mackenzie Rodriguez D.O.; VAISHALI CHAIDEZ [place] [address] Patient Name: VIMAL PIZANO MRN: [id number] date: 2000 Sex: F Assigned [facility] Accession/Order Number: [id number] Exam Date: 06/29/2024 08:37 Report Date: 06/29/2024 [...] Herrera M.D. Signed By:06/29/24913 DD/ 0 TD/TT: Register Of Deeds: us Mackenzie Michael DO [facility] Final Result documented in this encounter Visit Diagnoses Not on filedocumented in this encounter Care Teams Traffic Controller Cable Relationship Specialty Start Date End Date Vaishali Chaidez MD [address] [place] [address] PCP - General Family Medicine 02/04/23 08/02/24 Unallocated, Noms Provider, [address] [facility] [place] [address] PCP - General Family Medicine 08/03/24 documented as of this encounter
--- OUTSIDE RECORDS SUMMARY | 2025-03-08 19:02 | XMS_ITS | Encounter Summary ---
Author Organization [facility] Address [address] [place] [address] Care Team Providers Care Cat Operator Name Role Phone Unallocated, Noms Provider Primary Care Provi krissy Encounter Details Date Type Department Care Team (Late st Contact Info) Description 02/20/2025 External Result Encounter [facility] External Department Unsolicited Rossana Ramos PA [address] [place] [address] [place], [facility]11 Social History Tobacco Use Types Packs/Day Years [...] Routine [facility] BCP OB [address] [place] [address] Jose Rodriguez DO [address] [place], [place] [phone] (work) documented as of this encounter Procedures Procedure Name Priority Date/Time Associated Diagnosis Comments RECURRENT VAGINITIS (HTRX) Routine 02/20/2025 4:33 PM EDT URINARY TRACT INFECTION (HTRX) Routine 02/20/2025 4:30 PM EDT documented in this encounter Results * RECURRENT VAGINITIS (HTRX) (02/20/2025 4:33 PM EDT) [facility] ATOPOBIUM VAGINAE 0.000 19.961 - 24.689 ppm 02/22/2025 6:32 AM EDT [facility] ATOPOBIUM VAGINAE Not Detected 19.961 - 24.689 ppm 02/22/2025 6:32 AM EDT [facility] BVAB 2,3 (BACTERIAL VAGINOSIS ASSOCIATED BACTERIA 2, 3); MOBILUNCUS SPP 0.000 19.961 - 24.689 ppm 02/22/2025 6:32 AM EDT [facility] BVAB 2,3 (BACTERIAL VAGINOSIS ASSOCIATED BACTERIA 2, 3); MOBILUNCUS SPP Not Detected 19.961 - 24.689 ppm 02/22/2025 6:32 AM EDT [facility] SIMEON ALBICANS, PARAPSILOSIS, TROPICALIS 0.000 19.961 - 30.770 ppm 02/22/2025 6:32 AM EDT [facility] SIMEON ALBICANS, PARAPSILOSIS, TROPICALIS Not Detected 19.961 - 30.770 ppm 02/22/2025 6:32 AM EDT [facility] SIMEON GLABRATA 0.000 23.000 - 32.138 ppm 02/22/2025 6:32 AM EDT [facility] SIMEON GLABRATA Not Detected 23.000 - 32.138 ppm 02/22/2025 6:32 AM EDT [facility] SIMEON KRUSEI 0.000 23.000 - 32.271 ppm 02/22/2025 6:32 AM EDT [facility] SIMEON KRUSEI Not Detected 23.000 - 32.271 ppm 02/22/2025 6:32 AM EDT [facility] CHLAMYDIA TRACHOMATIS 0.000 23.000 - 31.467 ppm 02/22/2025 6:32 AM EDT [facility] CHLAMYDIA TRACHOMATIS Not Detected 23.000 - 31.467 ppm 02/22/2025 6:32 AM EDT [facility] GARDNERELLA VAGINALIS 0.000 19.961 - 24.689 ppm 02/22/2025 6:32 AM EDT [facility] GARDNERELLA VAGINALIS Not Detected 19.961 - 24.689 ppm 02/22/2025 6:32 AM EDT [facility] MEGASPHAERA (TYPES 1, 2) 0.000 19.961 - 24.689 ppm 02/22/2025 6:32 AM EDT [facility] MEGASPHAERA (TYPES 1, 2) Not Detected 19.961 - 24.689 ppm 02/22/2025 6:32 AM EDT [facility] NEISSERIA GONORRHOEAE 0.000 23.000 - 32.117 ppm 02/22/2025 6:32 AM EDT [facility] NEISSERIA GONORRHOEAE Not Detected 23.000 - 32.117 ppm 02/22/2025 6:32 AM EDT [facility] TRICHOMONAS VAGINALIS 0.000 23.000 - 32.119 ppm 02/22/2025 6:32 AM EDT [facility] TRICHOMONAS VAGINALIS Not Detected 23.000 - 32.119 ppm 02/22/2025 6:32 AM EDT [facility] MYCOPLASMA GENITALIUM 0.000 19.961 - 24.689 ppm 02/22/2025 6:32 AM EDT [facility] MYCOPLASMA GENITALIUM Not Detected 19.961 - 24.689 ppm 02/22/2025 6:32 AM EDT [facility] Tissue 02/20/2025 4:33 PM EDT 02/22/2025 1:53 AM EDT us Rossana BISW[facility] LAB BLOOD ORDERABLES Final Resul t [facility] [place] [address] * URINARY TRACT INFECTION (HTRX) (02/20/2025 4:30 PM EDT) Pathologist [facility] ACINETOBACTER BAUMANII 0.000 19.961 - 24.689 ppm 02/22/2025 6:52 AM EDT [facility] ACINETOBACTER BAUMANII Not Detected 19.961 - 24.689 ppm 02/22/2025 6:52 AM EDT [facility] CITROBACTER FREUNDII 0.000 23.000 - 31.881 ppm 02/22/2025 6:52 AM EDT [facility] CITROBACTER FREUNDII Not Detected 23.000 - 31.881 ppm 02/22/2025 6:52 AM EDT [facility] ENTEROBACTER AEROGENES, CLOACAE 0.000 23.000 - 31.535 ppm 02/22/2025 6:52 AM EDT [facility] ENTEROBACTER AEROGENES, CLOACAE Not Detected 23.000 - 31.535 ppm 02/22/2025 6:52 AM EDT [facility] ENTEROCOCCUS FAECALIS, FAECIUM 0.000 26.000 - 31.575 ppm 02/22/2025 6:52 AM EDT [facility] ENTEROCOCCUS FAECALIS, FAECIUM Not Detected 26.000 - 31.575 ppm 02/22/2025 6:52 AM EDT [facility] ESCHERICHIA COLI 0.000 23.000 - 28.500 ppm 02/22/2025 6:52 AM EDT [facility] ESCHERICHIA COLI Not Detected 23.000 - 28.500 ppm 02/22/2025 6:52 AM EDT [facility] KLEBSIELLA PNEUMONIAE, OXYTOCA 0.000 23.000 - 30.500 ppm 02/22/2025 6:52 AM EDT [facility] KLEBSIELLA PNEUMONIAE, OXYTOCA Not Detected 23.000 - 30.500 ppm 02/22/2025 6:52 AM EDT [facility] MORGANELLA MORGANII 0.000 19.961 - 24.689 ppm 02/22/2025 6:52 AM EDT [facility] MORGANELLA MORGANII Not Detected 19.961 - 24.689 ppm 02/22/2025 6:52 AM EDT [facility] PROTEUS MIRABILIS, VULGARIS 0.000 23.000 - 28.500 ppm 02/22/2025 6:52 AM EDT [facility] PROTEUS MIRABILIS, VULGARIS Not Detected 23.000 - 28.500 ppm 02/22/2025 6:52 AM EDT [facility] PSEUDOMONAS AERUGINOSA 0.000 23.000 - 28.500 ppm 02/22/2025 6:52 AM EDT [facility] PSEUDOMONAS AERUGINOSA Not Detected 23.000 - 28.500 ppm 02/22/2025 6:52 AM EDT [facility] STAPHYLOCOCCUS AUREUS 0.000 26.000 - 30.902 ppm 02/22/2025 6:52 AM EDT [facility] STAPHYLOCOCCUS AUREUS Not Detected 26.000 - 30.902 ppm 02/22/2025 6:52 AM EDT [facility] STREPTOCOCCUS AGALACTIAE (GROUP B STREP) 0.000 26.000 - 32.222 ppm 02/22/2025 6:52 AM EDT [facility] STREPTOCOCCUS AGALACTIAE (GROUP B STREP) Not Detected 26.000 - 32.222 ppm 02/22/2025 6:52 AM EDT [facility] SIMEON ALBICANS, PARAPSILOSIS, TROPICALIS 0.000 19.961 - 30.770 ppm 02/22/2025 6:52 AM EDT [facility] SIMEON ALBICANS, PARAPSILOSIS, TROPICALIS Not Detected 19.961 - 30.770 ppm 02/22/2025 6:52 AM EDT [facility] SIMEON GLABRATA 0.000 23.000 - 32.138 ppm 02/22/2025 6:52 AM EDT [facility] SIMEON GLABRATA Not Detected 23.000 - 32.138 ppm 02/22/2025 6:52 AM EDT [facility] SIMEON KRUSEI 0.000 23.000 - 32.271 ppm 02/22/2025 6:52 AM EDT [facility] SIMEON KRUSEI Not Detected 23.000 - 32.271 ppm 02/22/2025 6:52 AM EDT [facility] SERRATIA MARCESCENS 0.000 23.000 - 31.204 ppm 02/22/2025 6:52 AM EDT [facility] SERRATIA MARCESCENS Not Detected 23.000 - 31.204 ppm 02/22/2025 6:52 AM EDT [facility] STREPTOCOCCUS PYOGENES (GROUP A STREP) 0.000 19.961 - 24.689 ppm 02/22/2025 6:52 AM EDT [facility] STREPTOCOCCUS PYOGENES (GROUP A STREP) Not Detected 19.961 - 24.689 ppm 02/22/2025 6:52 AM EDT [facility] STAPHYLOCOCCUS EPIDERMIDIS, HAEMOLYTICUS, LUGDUNENSIS, SAPROPHYTICUS (URINA 0.000 19.961 - 24.689 ppm 02/22/2025 6:52 AM EDT [facility] STAPHYLOCOCCUS EPIDERMIDIS, HAEMOLYTICUS, LUGDUNENSIS, SAPROPHYTICUS (URINA Not Detected 19.961 - 24.689 ppm 02/22/2025 6:52 AM EDT [facility] STAPHYLOCOCCUS EPIDERMIDIS, HAEMOLYTICUS, LUGDUNENSIS, SAPROPHYTICUS (URINA 0.000 19.961 - 24.689 ppm 02/22/2025 6:52 AM EDT [facility] STAPHYLOCOCCUS EPIDERMIDIS, HAEMOLYTICUS, LUGDUNENSIS, SAPROPHYTICUS (URINA Not Detected 19.961 - 24.689 ppm 02/22/2025 6:52 AM EDT [facility] Urine 02/20/2025 4:30 PM EDT 02/22/2025 1:52 AM EDT us Rossana BISWAS LAB BLOOD ORDERABLES Final Resul t [facility] [address] [place] [address] documented in this encounter Visit Diagnoses Not on filedocumented in this encounter Care Teams Cat Operator Relationship Specialty Start Date End Date Unallocated, Noms Provider, [address] [place] [address] PCP - General Family Medicine 08/03/24 documented as of this encounter
--- OUTSIDE RECORDS SUMMARY | 2025-03-08 19:02 | XMS_ITS | Encounter Summary ---
Author Organization [facility] Address [address] [place] [address] Care Team Providers Care Folding Machine Operator Name Role Phone Unallocated, Noms Provider Primary Care Provi krissy Encounter Details Date Type Department Care Team (Late Contact Info) Description 08/10/2024 Abstract [facility] OB [address] [facility] [place] [phone] Jose Rodriguez, [address] [place], [facility]11 Social History Tobacco Use Types Packs/Day [...] [facility] BCP OB [address] [place] [address] Jose Rodriguez, DO [facility] [address] [place], [place] [phone] documented as of this encounter Visit Diagnoses Not on filedocumented in this encounter Care Teams Folding Machine Operator Relationship Specialty Start Date End Date Unallocated, Noms Provider, [address] [place] [address] PCP - General Family Medicine 08/03/24 documented as of this encounter
--- OUTSIDE RECORDS SUMMARY | 2025-03-08 19:02 | XMS_ITS | Encounter Summary ---
Author Organization [facility] Address [address] [place] [address] Care Team Providers Care Truck Service Manager Name Role Phone Vaishali Zapata MD Primary Care Provider Bipin cheng Unallocated, Noms Provider Primary Care Provi krissy Encounter Details Date Type Department Care Team (Late st Contact Info) Description 06/29/2024 Abstract [facility] BCP OB [address] [place] [address] Jose Rodriguez DO [address] [place], [facility]11 Social History Tobacco Use Types Packs/Day [...] Routine [facility] BCP OB [address] [place] [address] Jose Rodriguez DO [address] [place] [address] documented as of this encounter Visit Diagnoses Not on filedocumented in this encounter Care Teams Truck Service Manager Relationship Specialty Start Date End Date Vaishali Zapata MD [address] [place] [place] [address] PCP - General Family Medicine 02/04/23 08/02/24 Unallocated, Noms Provider, [address] [place] [address] PCP - General Family Medicine 08/03/24 documented as of this encounter
--- OUTSIDE RECORDS SUMMARY | 2025-03-08 19:02 | XMS_ITS | Encounter Summary ---
Author Organization [facility] Address [address] [place] [address] Care Team Providers Care Production Supervisor Trainee Name Role Phone Unallocated, Noms Provider Primary Care Provi krissy Encounter Details Date Type Department Care Team (Late st Contact Info) Description 03/06/2025 Orders Only [facility] OB [address] [facility] [place] [address] Kavitha Almanza MA Social History Tobacco Use Types Packs/Day Years [...] Routine [facility] BCP OB [address] [place] [address] Jose Rodriguez [facility] [address] [place], [place] [id number] documented as of this encounter Procedures Procedure Name Priority Date/Time Associated Diagnosis Comments PAP SMEAR Routine 02/20/2025 12:00 AM EDT documented in this encounter Results * Pap Smear (02/20/2025 12:00 AM EDT) Swab Cervical swab / Unknown us Rossana [facility] CYTOLOGY ORDERABLES Final Re sult [facility] documented in this encounter Visit Diagnoses Not on filedocumented in this encounter Care Teams Production Supervisor Trainee Relationship Specialty Start Date End Date Unallocated, Noms Provider, [address] [place] [address] PCP - General Family Medicine 08/03/24 documented as of this encounter
--- OUTSIDE RECORDS SUMMARY | 2025-03-08 19:02 | XMS_ITS | Encounter Summary ---
Author Organization [facility] Address [address] [place] [address] Care Team Providers Care Risk Officer Name Role Phone Unallocated, Noms Provider Primary Care Provi krissy Encounter Details Date Type Department Care Team (Late Contact Info) Description 08/10/2024 Abstract [facility] OB [address] [facility] [place] [phone] Jose Rodriguez, [address] [place], [facility]11 Social History Tobacco Use Types Packs/Day [...] Routine [facility] BCP OB [address] [place] [address] Jose Rodriguez, DO [facility] [address] [place], [place] [id number] documented as of this encounter Visit Diagnoses Not on filedocumented in this encounter Care Teams Risk Officer Relationship Specialty Start Date End Date Unallocated, Noms Provider, [address] [place] [address] PCP - General Family Medicine 08/03/24 documented as of this encounter
--- OUTSIDE RECORDS SUMMARY | 2025-03-08 19:02 | XMS_ITS | Patient Health Record ---
Author Organization The [facility] in [place] Address [address] [place] [address] Care Team Providers Care Sales Agent Casualty Insurance Name Role Phone Jennifer Butts Primary Care Provider [phone] Allergies No Known Allergies Results Component Value Reference Range Notes PREG ([facility]), URINE - IN OFFI CE Reviewed date:07/23/2024 08:22:00 AM Interpretation: Performing Lab: Notes/Report: PREG ([facility]), URINE - IN OFFICE + NEG - NEG Control Present + Urine Culture, Routine Reviewed date:07/23/2024 08:22:00 AM Interpretation: Performing Lab: Notes/Report: [facility] , Urine Culture, Routine See Below For Report Urine Culture, Routine Urine Culture, Routine Mixed urogenital tami Urine Culture, Routine Urine Culture, Routine 10,000-25,000 col nan forming units per mL Urine Culture, Routine Urine Culture, Routine Performed at: - [facility] [place] Urine Culture, Routine Urine Culture, Routine [address] [place] [phone] Urine Culture, Routine Urine Culture, Routine Spectrographic Analyst: Riky Harris PhD, Phone: [phone] Urine Culture, Routine Performing Lab: see note SEE REPORT - 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 , White Blood Count 11.1 4.0-11.0 [...] 3/uL Performing Lab: see note ML - [facility] OB transvaginal Reviewed date:08/03/2024 08:30:13 AM Interpretation: Performing Lab: Notes/Report: Source Facility: [place] [address] Ultrasound Report Signed Patient: VIMAL PIZANO MR#: [id number] : 2000 Acct:[id number] Age/Sex: 24 / F ADM Date: 08/02/24 Loc: ER Attending Dr: Ordering Physician: Kishan Motta Date of Service: 08/02/24 Procedure(s): OB transvaginal Accession Number(s): [id number] cc: JENNIFER BUTTS ; Kishan Motta [place] [address] Patient Name: VIMAL PIZANO MRN: [id number] date: 2000 Sex: F Assigned Patient Location: ER Current Patient Location: ER Accession/Order Number: [id number] Exam Date: 08/02/2024 19:17 Report Date: 08/02/2024 [...] M.D. Signed By: 08/02/242126 DD/ 23 TD/TT: Interactive Marketing Strategist: [place] [address] Ultrasound Report Signed Patient: VIMAL PIZANO MR#: [id number] : 2000 Acct:[id number] Age/Sex: 24 / F ADM Date: 08/02/24 Loc: ER Attending Dr: Ordering Physician: Kishan Motta Date of Service: 08/02/24 Procedure(s): US OB transvaginal Accession Number(s): [id number] cc: JENNIFER BUTTS ; Kishan Ángela [place] [address] Patient Name: VIMAL PIZANO MRN: [id number] date: 2000 Sex: F Assigned Patient Location: ER Current Patient Location: ER Accession/Order Number: [id number] Exam Date: 19:17 Report Date: 08/02/2024 21:24 [...] M.D. Signed By: 08/02/242126 DD/ 23 TD/TT: Interactive Marketing Strategist: CBC AUTO DIFF Reviewed date:08/10/2024 08:58:56 AM Interpretation: Performing Lab: Notes/Report: [facility] , White Blood Count 8.9 4.0-11.0 [...] 3/uL Performing Lab: see note ML - [facility] PREG QUANT HCG Reviewed date:08/10/2024 08:58:56 AM Interpretation: Performing Lab: Notes/Report: [facility] Quantitative 240 50-500 1-2 WEEKS 1,000-50,000 4-5 WEEKS 15,000-200,000 6-8 WEEKS 10,000-100,000 2-3 MONTHS 100-5,000 2-3 WEEKS 500-10,000 3-4 WEEKS 5-50 0.2-1 WEEK 10,000-100,000 5-6 WEEKS Performing Lab: see note ML - [facility] US OB transvaginal Reviewed date:08/10/2024 08:58:56 AM Interpretation: Performing Lab: Notes/Report: Source Facility: [place] [address] [place] [address] Ultrasound Report Signed Patient: VIMAL PIZANO MR#: [id number] : 2000 Acct:[id number] Age/Sex: 24 / F ADM Date: 08/10/24 Loc: SURGOUT Attending Dr: Mackenzie Rodriguez D.O. Ordering Physician: Mackenzie Rodriguez D.O. Date of Service: 08/10/24 Procedure(s): US OB transvaginal Accession Number(s): [id number] cc: JENNIFER BUTTS ; Mackenzie Rodriguez D.O. [place] [address] Patient Name: VIMAL PIZANO MRN: [id number] date: 2000 Sex: F Assigned Patient Location: SURGOUT Current Patient Location: SURGOUT Accession/Order Number: [id number] Exam Date: 08/10/2024 08:10 Report Date: 08/10/2024 [...] Lavon Herrera M.D. Signed By: 08/10/2447 DD/ TD/TT: Interactive Marketing Strategist: [place] [address] Ultrasound Report Signed Patient: VIMAL PIZANO MR#: [id number] : 2000 Acct:[id number] Age/Sex: 24 / F ADM Date: 08/10/24 Loc: SURGOUT Attending Dr: Mackenzie Rodriguez D.O. Ordering Physician: Mackenzie Rodriguez D.O. Date of Service: 08/10/24 Procedure(s): US OB transvaginal Accession Number(s): [id number] cc: JENNIFER BUTTS ; Mackenzie Rodriguez D.O. [place] [id number] Patient Name: VIMAL PIZANO MRN: [id number] date: 2000 Sex: F Assigned Patient Location: [facility] Current Patient Location: [facility] Accession/Order Number: [id number] Exam Date: 08:10 Report Date: 08/10/2024 08:44 [...] Lavon Herrera M.D. Signed By: 08/10/2447 DD/ TD/TT: Interactive Marketing Strategist: PREG QUANT HCG Reviewed date:11/20/2024 01:38:35 PM Interpretation: Performing Lab: Notes/Report: [facility] , HCG Quantitative 6254 10,000-100,000 2-3 MONTHS 5-50 0.2-1 WEEK 500-10,000 3-4 WEEKS 100-5,000 2-3 WEEKS 15,000-200,000 6-8 WEEKS 10,000-100,000 5-6 WEEKS 50-500 1-2 WEEKS 1,000-50,000 4-5 WEEKS Performing Lab: see note ML - [facility] PREG QUANT HCG Reviewed date:11/22/2024 08:59:16 AM Interpretation: Performing Lab: Notes/Report: [facility] , HCG Quantitative 27438 5-50 0.2-1 WEEK 100-5,000 2-3 WEEKS 1,000-50,000 4-5 WEEKS 10,000-100,000 2-3 MONTHS 500-10,000 3-4 WEEKS 15,000-200,000 6-8 WEEKS 10,000-100,000 5-6 WEEKS 50-500 1-2 WEEKS Performing Lab: see note ML - [facility] LB CBC AUTO DIFF Reviewed date:01/07/2025 01:05:16 PM Interpretation: Performing Lab: Notes/Report: [facility] , White Blood Count 9.2 4.0-11.0 [...] 3/uL Performing Lab: see note ML - [facility] LB GLYCOHEMOGLOBIN A1C Reviewed date:01/07/2025 01:05:16 PM Interpretation: Performing Lab: Notes/Report: [facility] , Glycohemoglobin A1C 5.0 4.5-6.2 % > 7.0 ADA RECOMMENDED LIMIT 4.0 - 6.0 ADA THERAPEUTIC TARGET < 7.0 ACTION SUGGESTED Estimated Average Glucose 97 Performing Lab: see note - [facility] Rapid Plasma Reagin, Quant Reviewed date:01/07/2025 01:05:16 PM Interpretation: Performing Lab: Notes/Report: [facility] , Rapid Plasma Reagin, Quant Non Reactive NonRea<1:1 titer Treponema pallidum (Syphilis) Screening [place] (094546) or treated for syphilis infection. To screen for syphilis Spectrographic Analyst: Andrew Harris PhD, Phone: [phone] treponema-specific assay should be utilized, such as RPR and Confirmatory Treponema pallidum Antibodies (948190). Rapid Plasma Reagin (RPR) Test With Reflex to Quantitative Performed at: [facility] Please Note: This test does not meet current guidelines for infection, a reflex cascade that includes both RPR and a [address] [place] [address] [phone] screening and diagnosis of syphilis. This test is intended for following treatment response in patients being Performing Lab: see note [facility] HBsAg Screen Reviewed date:01/07/2025 01:05:16 PM Interpretation: Performing Lab: Notes/Report: [facility] , HBsAg Screen Negative Negative Spectrographic Analyst: Andrew Harris PhD, Phone: [phone] Performed at: [address] [id number] Performing Lab: see note [facility] Urine Culture, Routine Reviewed date:01/07/2025 01:05:16 PM Interpretation: Performing Lab: Notes/Report: [facility] , Urine Culture, Routine See Below For Report Urine Culture, Routine Urine Culture, Routine Mixed urogenital tami Urine Culture, Routine Urine Culture, Routine 50,000-100,000 co lony forming units per mL Urine Culture, Routine Urine Culture, Routine Performed at: [facility] Urine Culture, Routine Urine Culture, Routine [address] [place] [address] [phone] Urine Culture, Routine Urine Culture, Routine Spectrographic Analyst: Riky Harris PhD, Phone: [phone] Urine Culture, Routine Performing Lab: see note 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 , BOX Test Sent Out UN[facility] BOX Test Reference Lab [facility] Test Date Sent 01-05-25 Performing Lab: see note ML - [facility] LB DRUG SCREEN RAPID (URINE) Reviewed date:01/07/2025 01:05:16 PM Interpretation: Performing Lab: Notes/Report: [facility] , Cannabinoid Screen Urine NEGATIVE NEGATIVE Phencyclidine [...] (Cocaine): 150 ng/mL Performing Lab: see note ML - [facility] LB PREG QUANT HCG Reviewed date:08/20/2024 11:36:34 AM Interpretation: Performing Lab: Notes/Report: [facility] , HCG Quantitative 6 5-50 0.2-1 WEEK 500-10,000 3-4 WEEKS 15,000-200,000 6-8 WEEKS 10,000-100,000 2-3 MONTHS 1,000-50,000 4-5 WEEKS 50-500 1-2 WEEKS 100-5,000 2-3 WEEKS 10,000-100,000 5-6 WEEKS Performing Lab: see note ML - [facility] LB PROF 14(COMP METB) Reviewed date:08/03/2024 08:30:13 AM Interpretation: Performing Lab: Notes/Report: [facility] , Sodium 140 136-145 mmol/L Potassium [...] 0.9 Performing Lab: see note ML - [facility] LB PREG QUANT HCG Reviewed date:08/03/2024 08:30:13 AM Interpretation: Performing Lab: Notes/Report: [facility] , HCG Quantitative 1656 15,000-200,000 6-8 WEEKS 10,000-100,000 2-3 MONTHS 10,000-100,000 5-6 WEEKS 1,000-50,000 4-5 WEEKS 100-5,000 2-3 WEEKS 50-500 1-2 WEEKS 5-50 0.2-1 WEEK 500-10,000 3-4 WEEKS Performing Lab: see note ML - [facility] LB Box Test Reviewed date:07/23/2024 08:22:00 AM Interpretation: Performing Lab: Notes/Report: [facility] , BOX Test Sent Out UNITY BOX Test Reference Lab [facility] Test Date Sent 07/21/24 Performing Lab: see note ML - [facility] LB HBsAg Screen Reviewed date:07/23/2024 08:22:00 AM Interpretation: Performing Lab: Notes/Report: [facility] , HBsAg Screen Negative Negative Spectrographic Analyst: Andrew Harris PhD, Phone: [phone] [address] [place], [place] [phone] Performed at: [facility] Performing Lab: see note [facility] LB HCV Antibody RFX to Quant PC R Reviewed date:07/23/2024 08:22:00 AM Interpretation: Performing Lab: Notes/Report: [facility] , HCV Ab Non Reactive Non Reactive Interpretation: Comment . individual), or other evidence exists to indicate HCV infection. suspected (which may be delayed in an immunocompromised Not infected with HCV unless early or acute infection is Performing Lab: see note [facility] Rapid Plasma Reagin, Quant Reviewed date:07/23/2024 08:22:00 AM Interpretation: Performing Lab: Notes/Report: [facility] , Rapid Plasma Reagin, Quant Non Reactive NonRea<1:1 titer infection, a reflex cascade that includes both RPR and a treponema-specific assay should be utilized, such as Performed at: [facility] screening and diagnosis of syphilis. This test is Treponema pallidum (Syphilis) Screening [place] (619616) or Spectrographic Analyst: Andrew Harris PhD, Phone: [phone] Please Note: This test does not meet current guidelines for Rapid Plasma Reagin (RPR) Test With Reflex to Quantitative (428073). RPR and Confirmatory Treponema pallidum Antibodies [address] [place] [address] [phone] treated for syphilis infection. To screen for syphilis intended for following treatment response in patients being Performing Lab: see note [facility] HIV Ab/p24 Ag with Reflex Reviewed date:07/23/2024 08:22:00 AM Interpretation: Performing Lab: Notes/Report: [facility] , HIV Ab/p24 Ag Screen Non Reactive Non Reactive detected. There is no laboratory evidence of HIV infection. HIV-1/HIV-2 antibodies and HIV-1 p24 antigen were NOT Spectrographic Analyst: Andrew Harris PhD, Phone: [phone] HIV Negative Performed at: [facility] [address] [place], [place] [id number] Performing Lab: see note [facility] LB Type and Screen Reviewed date:07/23/2024 08:22:00 AM Interpretation: Performing Lab: Notes/Report: [facility] , Blood Type A Positive Antibody Screen NEGATIVE RUBELLA AB IGG Reviewed date:07/23/2024 08:22:00 AM Interpretation: Performing Lab: Notes/Report: [facility] , Rubella Antibodies, IgG 1.57 Immune > 0.99 index Non-immune <0.90 Equivocal 0.90 - 0.99 Performed at: [facility] Immune >0.[address] [place] [phone] Spectrographic Analyst: Andrew Harris PhD, Phone: [phone] Performing Lab: see note - [facility] LB GLYCOHEMOGLOBIN A1C Reviewed date:07/23/2024 08:22:00 AM Interpretation: Performing Lab: Notes/Report: [facility] , Glycohemoglobin A1C 4.9 4.5-6.2 % > 7.0 ACTION SUGGESTED ADA RECOMMENDED LIMIT 4.0 - 6.0 ADA THERAPEUTIC TARGET < 7.0 Estimated Average Glucose 94 Performing Lab: see note ML - [facility] LB DRUG SCREEN RAPID (URINE) Reviewed date:07/23/2024 08:22:00 AM Interpretation: Performing Lab: Notes/Report: REEFLEX IF POSITIVE [facility] , Cannabinoid Screen Urine NEGATIVE NEGATIVE [...] ng/mL Performing Lab: see note ML - [facility] LB CBC AUTO DIFF Reviewed date:07/23/2024 08:22:00 AM Interpretation: Performing Lab: Notes/Report: [facility] , White Blood Count 10.6 4.0-11.0 [...] Performing Lab: see note ML - [facility] LB HCV Antibody RFX to Quant PC R Reviewed date:01/07/2025 01:05:16 PM Interpretation: Performing Lab: Notes/Report: [facility] , HCV Ab Non Reactive Non Reactive Interpretation: Comment . suspected (which may be delayed in an immunocompromised Performed at: - [facility] [address] [id number] Spectrographic Analyst: Andrew Harris PhD, Phone: [phone] Not infected with HCV unless early or acute infection is infection. individual), or other evidence exists to indicate HCV Performing Lab: see note - [facility] LB HIV Ab/p24 Ag with Reflex Reviewed date:01/07/2025 01:05:16 PM Interpretation: Performing Lab: Notes/Report: [facility] , HIV Ab/p24 Ag Screen Non Reactive Non Reactive Performed at: [facility] HIV-1/HIV-2 antibodies and HIV-1 p24 antigen were NOT Spectrographic Analyst: Andrew Harris PhD, Phone: [phone] HIV Negative [address] [place] [phone] detected. There is no laboratory evidence of HIV infection. Performing Lab: see note - [facility] LB Type and Screen Reviewed date:01/07/2025 01:05:16 PM Interpretation: Performing Lab: Notes/Report: [facility] , Blood Type A Positive Antibody Screen NEGATIVE RUBELLA AB IGG Reviewed date:01/07/2025 01:05:16 PM Interpretation: Performing Lab: Notes/Report: [facility] , Rubella Antibodies, IgG 1.57 Immune > 0.99 index Performed at: [facility] Immune >0.99 Equivocal 0.90 - 0.[address] [place] [address] [phone] Non-immune <0.90 Spectrographic Analyst: Andrew Harris PhD, Phone: [phone] Performing Lab: see note - [facility] LB IGP,Aptima HPV,Age Gdln Reviewed date:02/25/2025 03:13:18 PM Interpretation: Performing Lab: Notes/Report: SPATULA-ALONE ENDOCERVIX [facility] , Age Gdln ACOG Testing Note . Jenise Byrne MD, Age Algo ACOG Yris... -24 10 Clinician Provided Cytology Information TESTS RESULT FLAG UNITS REF RANGE LAB <-Panic Low,>-Panic High,A-Abnormal,AA-Cri tical Abnormal L-Low Normal,H-High Normal,LL-Alert Low,HH-Alert High FLAG LEGEND: Source.............End ocervix Performed at: No. of containers..01 ThinPrep Vial 01 =G [facility] [address] [place] [address] IGP, rfx Aptima HPV ASCU Note . Spectrographic Analyst: Jenise Byrne MD, Phone: [phone] NEGATIVE FOR INTRAEPITHELIAL LESION OR MALIGNANCY. <-Panic Low,>-Panic High,A-Abnormal,AA-Cri tical Abnormal occur. Performed at: [facility] uterine cervix. It is not a diagnostic procedure and The Pap smear is a screening test designed to aid in the should not be used as the sole means of detecting cervical Performed at: =[facility] This liquid based ThinPrep(R) pap test was screened with cancer. Both false-positive and false-negative reports do Satisfactory for evaluation. Endocervical and/or squamous metaplastic Performed at: L-Low Normal,H-High Normal,LL-Alert Low,HH-Alert High Whitney Alvarez Associate Creative Director (ASCP) cells (endocervical component) are present. 02 [facility] Spectrographic Analyst: Jenise Byrne MD, Phone: [phone] Note: Note 02 [address] [facility] [place], W [phone] [address] [facility], [place] [place] [address] . 02 Test Methodology: Note 02 TESTS RESULT FLAG UNITS REF RANGE LAB Performed by: 02 The HPV DNA reflex criteria were not met with this specimen Specimen adequacy: 02 FLAG LEGEND: Jenise Byrne MD, DIAGNOSIS: 02 detection of premalignant and malignant conditions of the the use of an image guided system. [address] [facility] [place] [place] [phone] result therefore, no HPV testing was performed. Performing Lab: see note LC - [facility] LB Reason For Referral No Information Medications [...] 06/05/2024 Encounters Encounter Location Date Provider Diagnosis [facility] [address] [place] [address] 06/05/2024 Jenniferluz Bernardomer Z33.1 and Wellness examination Z00.00 Assessments Encounter Date Diagnosis (ICD Code) Assessment Notes Treatment Notes Treatment Clinical Notes Section Notes 06/05/2024 (ICD-10 - Z33.1) 06/05/2024 Wellness examination (ICD-10 - Z00.00) ROS done exam done medical hx reviewed here to establish no acute concerns ida Henry Plan Of Treatment No Information Insurance Providers Payer Name Payer Address Payer Phone Subscriber Number Group Number Insured Name Patient Relationship to Insured Coverage Start Date Coverage End Date [employer] PPO PLUS LOCAL PLAN [address] [place] [address] [id number] Vimal Pizano Self - patient is the insured [employer] [place] [employer] [address] [place] [address] [id number] Vimal Pizano Self - patient is the insured Medical (General) History Medical History History ICD Code lead poisoning Surgical History Surgery Date(Month/Year) ear tubes
--- OUTSIDE RECORDS SUMMARY | 2025-03-08 19:02 | XMS_ITS | Encounter Summary ---
Author Organization [facility] Address [address] [place] [address] Care Team Providers Care Mold Builder Name Role Phone Vaishali Zapata MD Primary Care Provider Bipin cheng Unallocated, [facility] Provider Primary Care Provi krissy Encounter Details Date Type Department Care Team (Late st Contact Info) Description 08/02/2024 Abstract [facility] [address] [place] [address] Jose Rodriguez DO [address] [place], [facility] Social History Tobacco Use Types Packs/Day [...] Routine [facility] [address] [place] [address] Jose Rodriguez DO [address] [place], [facility] documented as of this encounter Visit Diagnoses Not on filedocumented in this encounter Care Teams Mold Builder Relationship Specialty Start Date End Date Vaishali Zapata MD [address] [place] [address] PCP - General Family Medicine 02/04/23 08/02/24 Unallocated, Noms Provider, [address] [place] [address] PCP - General Family Medicine 08/03/24 documented as of this encounter
--- NOTE | 2025-03-08 19:04 | US_ITS ---
The [address] [address] Patient Name: VIMAL PIZANO MRN: [id number] date: 2000 Sex: F Assigned Patient Location: US Current Patient Location: US Accession/Order Number: [id number] Exam Date: 03/08/2025 20:31 Report Date: 03/08/2025 20:36 At the request of: MACKENZIE SANDERSON DO Procedure: US OB anatomy Ultrasound assessment of cervical length Cervical length is 4.0 cm. Cervical os is closed. US/US OB anatomy IMPRESSION: Cervical length of 4.0 cm. Ultrasound assessment of anatomy HISTORY: Anatomic survey Fetus in variable presentation. Amniotic fluid subjectively normal. Placenta is in a fundal position. The placental edge is 5.5 cm from the cervical os. The heart rate 165 bpm. Following anatomy visualized: Lateral ventricles, cerebellum, posterior fossa, nose and lips, orbits, four-chamber heart, right ventricular outflow track and left ventricular outflow track, diaphragm, stomach, kidneys, abdominal cord insertion, bladder, umbilical arteries, 3 vessel cord. There is suboptimal assessment of the spine and extremities. There is some limitations of the nose and lip assessment due to position. The aspirate age 19 weeks 3 days. Estimated delivery 07/30/2025. IMPRESSION: Suboptimal assessment of the nose and lips spine and extremities due to position. Remaining anatomy unremarkable. Single live intrauterine gestation at 19 weeks 3 days. Impression dictated by: Shivam Knapp M.D. 03/08/2025 8:36 PM Dictation Location: [employer] Electronically authenticated by: [id number] Y Date: 03/08/2025 20:36
--- NOTE | 2025-03-08 19:04 | US_ITS ---
The [address] [address] Patient Name: VIMAL PIZANO MRN: [id number] date: 2000 Sex: F Assigned Patient Location: US Current Patient Location: Accession/Order Number: [id number] Exam Date: 03/08/2025 20:31 Report Date: 03/08/2025 20:36 At the request of: MACKENZIE SANDERSON DO Procedure: US OB anatomy Ultrasound assessment of cervical length Cervical length is 4.0 cm. Cervical os is closed. US/US OB cervical length IMPRESSION: Cervical length of 4.0 cm. Ultrasound assessment of anatomy HISTORY: Anatomic survey Fetus in variable presentation. Amniotic fluid subjectively normal. Placenta is in a fundal position. The placental edge is 5.5 cm from the cervical os. The heart rate 165 bpm. Following anatomy visualized: Lateral ventricles, cerebellum, posterior fossa, nose and lips, orbits, four-chamber heart, right ventricular outflow track and left ventricular outflow track, diaphragm, stomach, kidneys, abdominal cord insertion, bladder, umbilical arteries, 3 vessel cord. There is suboptimal assessment of the spine and extremities. There is some limitations of the nose and lip assessment due to position. The aspirate age 19 weeks 3 days. Estimated delivery 07/30/2025. IMPRESSION: Suboptimal assessment of the nose and lips spine and extremities due to position. Remaining anatomy unremarkable. Single live intrauterine gestation at 19 weeks 3 days. Impression dictated by: Shivam Knapp M.D. 03/08/2025 8:36 PM Dictation Location: [employer] Electronically authenticated by: [id number] Y Date: 03/08/2025 20:36
== END 2025-03-08 18:59 | disposition home or self-care (01) ==
PROVIDERS: PCP Nurse Practitioner Family; Visit Provider Obstetrics & Gynecology
DX: Z36.89 Encounter for other specified antenatal screening (principal); Z3A.19 19 weeks gestation of pregnancy
CPT/HCPCS: 76805; 76817

== ENCOUNTER 2025-03-23 10:46 | Outpatient (OUT) | payer BC, OTHER, SELFPAY ==
--- NOTE | 2025-03-23 | US_ITS ---
The [address] [address] Patient Name: VIMAL PIZANO MRN: [id number] date: 2000 Sex: F Assigned Patient Location: [place] Current Patient Location: Accession/Order Number: [id number] Exam Date: 03/25/2025 08:23 Report Date: 03/25/2025 08:25 At the request of: MACKENZIE SANDERSON DO Procedure: US OB incomplete anatomy ULTRASOUND OB INCOMPLETE ANATOMY COMPARISON: 03/08/2025 CLINICAL DATA: Suboptimal visualization of the facial features, spine and extremities. There is a single live intrauterine gestation in transverse presentation, head to the maternal right. The amniotic fluid volume is subjectively normal. The cervix, as visualized appears closed. There is cardiac and somatic activity with heart rate of 158 beats per minutes. Survey of the spine on today's study revealed no abnormalities. The facial features and extremities were still not well visualized due to position. US/US OB incomplete anatomy IMPRESSION: CONTINUED LIMITED VISUALIZATION OF THE EXTREMITIES AND FACIAL FEATURES. Impression dictated by: Meghana Brown M.D. 03/25/2025 8:25 AM Dictation Location: [place] [address] Electronically authenticated by: [id number] Date: 03/25/2025 08:25
--- OUTSIDE RECORDS SUMMARY | 2025-03-23 10:51 | XMS_ITS | CCD ---
Author Organization [facility] Care Team Providers Care Investments Manager Name Role Phone MICHAEL ., DR MANN [...] Unavailable MISC, DR DOMINIQUE Primary Care Unavailable WALDRON, DR COCO Danielle Consulting Unavailable MICHAEL ., DR MANN Consulting Unavailable MICHAEL ., DR MANN Admitting Unavailable MICHAEL ., DR MANN Attending Unavailable MISC, DR DOMINIQUE Primary Care Unavailable MICHAEL ., DR MANN Consulting Unavailable MICHAEL ., DR MANN Admitting Unavailable MICHAEL ., DR MANN Attending Unavailable MISC, DR DOMINIQUE Primary Care Unavailable WALDRON, DR COCO Danielle Consulting Unavailable MICHAEL ., DR MANN Consulting Unavailable MICHAEL ., DR MANN Admitting Unavailable MICHAEL ., DR MANN Attending Unavailable MISC, DR DOMINIQUE Primary Care Unavailable MICHAEL ., DR MANN Consulting Unavailable ZIEBER, DR ESTEFANY Zurita Consulting Unavailable MICHAEL ., DR MANN Admitting Unavailable MICHAEL ., DR MANN Attending Unavailable MISC, DR DMOINIQUE Primary Care Unavailable MICHAEL ., DR MANN [...] ilable Jose Rodriguez DO Attending Provider Unallocated Arjun GREENBERG Provider Primary Care Provi krissy NO FAMILY, PHYSICIAN Primary Care Unavailable Jose Rodriguez Attending Unavailable Jose Rodriguez Admitting Unavailable JOSE RODRIGUEZ Attending Unavailable ROSSANA LEACH Attending Unavailable JOSE RODRIGUEZ Attending Unavailable JOSE RODRIGUEZ [...] / zinc oxide 20 mg oral tablet (12 sources) Vitamin B12, Vitamin D, Vitamin C take 1 tablet by mouth once daily Vit-DSS-Fe Fum-FA ( 19) 29-1 MG tablet Take 1 each by mouth 1 (one) time each day at the same time Active loratadine 10 mg oral tablet (12 sources) take 1 tablet by mouth once [...] source) Active progesterone 100 mg vaginal insert (12 sources) Progesterone progesterone (Endometrin) 100 MG vaginal [...] [18 weeks gestation of ] 02-20-2025 Episodic Residual codes; unclassified (2 sources) Gestation period, 21 weeks; Translations: [21 weeks gestation of ] 03-14-2025 Episodic Spontaneous (2 sources) Miscarriage; Translations: [Complete [...] Range Facility Urinalysis macro (dipstick) panel (U)on 03-14-2025 Bilirubin, UA Negative Negative - 4(70) +++ mg/dL [facility] Blood, UA Negative Negative - 50 Jason/mcL [facility] Clarity, UA Clear [facility] re Color, UA Yellow [facility] Glucose, UA Negative Negative - 1999(110) ++++ mg/dL [facility] Interpretation and review of laboratory results Normal [facility] Ketones, UA Negative Negative - 160(16) ++++ mg/dL [facility] Leukocytes, UA Negative Negative - 500+++ Carlos/mcL [facility] Nitrite, UA Negative Negative - Positive [facility] pH, UA 7 5 - 9 [facility] Protein, UA Negative Negative - 1999(20) ++++ mg/dL [facility] Spec Grav, UA 1.01 1 - 1.03 [facility] Urobilinogen, UA 0.2 0.2 - 12 mg/dL [facility] e No Panel InformationOrdered By: Radiologist Radiology on 03-08-2025 [facility] e Work Phone: No Panel Informationon 03-08 Radiology Study observation (narrative) [facility] OB ANATOMYon 03-08-[address] [address] Ultrasound Report Signed Patient: VIMAL FUNES MR#: [id number] : 2000 Acct:[id number] Age/Sex: 24 / F ADM Date: 03/08/25 Loc: US Attending Dr: Jose Rodriguez D.O. Ordering Physician: Jose Rodriguez D.O. Date of Service: 03/08/25 Procedure(s): US OB anatomy Accession Number(s): [id number] cc: JENNIFER SEE ; Jose Rodirguez D.O. [address] [address] Patient Name: VIMAL FUNES MRN: [id number] date: 2000 Sex: F Assigned Patient Location: US Current Patient Location: US Accession/Order Number: [id number] Exam Date: 03/08/2025 20:31 Report Date: 03/08/2025 20:36 At the request of: JOSE RODRIGUEZ DO Procedure: US OB anatomy Ultrasound assessment of cervical length Cervical length is 4.0 cm. Cervical os is closed. US/US OB anatomy IMPRESSION: Cervical length of 4.0 cm. Ultrasound assessment of anatomy HISTORY: Anatomic survey Fetus in variable presentation. Amniotic fluid subjectively normal. Placenta is in a fundal position. The placental edge is 5.5 cm from the cervical os. The heart rate 165 bpm. Following anatomy visualized: Lateral ventricles, cerebellum, posterior fossa, nose and lips, orbits, four-chamber heart, right ventricular outflow track and left ventricular outflow track, diaphragm, stomach, kidneys, abdominal cord insertion, bladder, umbilical arteries, 3 vessel cord. There is suboptimal assessment of the spine and extremities. There is some limitations of the nose and lip assessment due to position. The aspirate age 19 weeks 3 days. Estimated delivery 07/30/2025. IMPRESSION: Suboptimal assessment of the nose and lips spine and extremities due to position. Remaining anatomy unremarkable. Single live intrauterine gestation at 19 weeks 3 days. Impression dictated by: Shivam Knapp M.D. 03/08/2025 8:36 PM Dictation Location: [place] [address] Electronically authenticated by: [id number] Y Date: 03/08/2025 20:36 Dictated By: Shivam Knapp D.O. Signed By: 03/08/252037 DD/ 35 TD/TT: Wind Turbine Mechanic: [facility] Radiology, Radiologist, MD - 03/08/2025 [place] [address] Ultrasound Report Signed Patient: VIMAL FUNES MR#: [id number] : 2000 Acct:[id number] Age/Sex: 24 / F ADM Date: 03/08/25 Loc: US Attending Dr: Jose Rodriguez D.O. Ordering Physician: Jose Rodriguez D.O. Date of Service: 03/08/25 Procedure(s): US OB anatomy Accession Number(s): [id number] cc: JENNIFER SEE ; Jose Rodriguez D.O. [place] [id number] Patient Name: VIMAL FUNES MRN: [id number] date: 2000 Sex: F Assigned Patient Location: US Current Patient Location: US Accession/Order Number: [id number] Exam Date: 03/08/2025 20:31 Report Date: 03/08/2025 20:36 At the request of: JOSE RODRIGUEZ DO Procedure: US OB anatomy Ultrasound assessment of cervical length Cervical length is 4.0 cm. Cervical os is closed. US/US OB anatomy IMPRESSION: Cervical length of 4.0 cm. Ultrasound assessment of anatomy HISTORY: Anatomic survey Fetus in variable presentation. Amniotic fluid subjectively normal. Placenta is in a fundal position. The placental edge is 5.5 cm from the cervical os. The heart rate 165 bpm. Following anatomy visualized: Lateral ventricles, cerebellum, posterior fossa, nose and lips, orbits, four-chamber heart, right ventricular outflow track and left ventricular outflow track, diaphragm, stomach, kidneys, abdominal cord insertion, bladder, umbilical arteries, 3 vessel cord. There is suboptimal assessment of the spine and extremities. There is some limitations of the nose and lip assessment due to position. The aspirate age 19 weeks 3 days. Estimated delivery 07/30/2025. IMPRESSION: Suboptimal assessment of the nose and lips spine and extremities due to position. Remaining anatomy unremarkable. Single live intrauterine gestation at 19 weeks 3 days. Impression dictated by: Shivam Knapp M.D. 03/08/2025 8:36 PM Dictation Location: [place] [address] Electronically authenticated by: [id number] Y Date: 03/08/2025 20:36 Dictated By: Shivam Knapp D.O. Signed By: 03/08/252037 DD/ 35 TD/TT: Wind Turbine Mechanic: ARJUN [facility] US OB CERVICAL LENGTHon 02-24 [place] [address] Ultrasound Report Signed Patient: VIMAL FUNES MR#: [id number] : 2000 Acct:[id number] Age/Sex: 24 / F ADM Date: 03/08/25 Loc: US Attending Dr: Jose Rodriguez D.O. Ordering Physician: Jose Rodriguez D.O. Date of Service: 03/08/25 Procedure(s): US OB cervical length Accession Number(s): [id number] cc: JENNIFER SEE ; Jose Rodriguez D.O. [place] [address] Patient Name: VIMAL FUNES MRN: [id number] date: 2000 Sex: F Assigned Patient Location: US Current Patient Location: US Accession/Order Number: [id number] Exam Date: 03/08/2025 20:31 Report Date: 03/08/2025 20:36 At the request of: JOSE RODRIGUEZ DO Procedure: US OB anatomy Ultrasound assessment of cervical length Cervical length is 4.0 cm. Cervical os is closed. US/US OB cervical length IMPRESSION: Cervical length of 4.0 cm. Ultrasound assessment of anatomy HISTORY: Anatomic survey Fetus in variable presentation. Amniotic fluid subjectively normal. Placenta is in a fundal position. The placental edge is 5.5 cm from the cervical os. The heart rate 165 bpm. Following anatomy visualized: Lateral ventricles, cerebellum, posterior fossa, nose and lips, orbits, four-chamber heart, right ventricular outflow track and left ventricular outflow track, diaphragm, stomach, kidneys, abdominal cord insertion, bladder, umbilical arteries, 3 vessel cord. There is suboptimal assessment of the spine and extremities. There is some limitations of the nose and lip assessment due to position. The aspirate age 19 weeks 3 days. Estimated delivery 07/30/2025. IMPRESSION: Suboptimal assessment of the nose and lips spine and extremities due to position. Remaining anatomy unremarkable. Single live intrauterine gestation at 19 weeks 3 days. Impression dictated by: Shivam Knapp M.D. 03/08/2025 8:36 PM Dictation Location: [facility] Electronically authenticated by: [id number] Y Date: 03/08/2025 20:36 Dictated By: Shivam Knapp D.O. Signed By: 03/08/252037 DD/ 35 TD/TT: Wind Turbine Mechanic: [facility] Radiology, Radiologist, - 03/08/2025 [place] [address] Ultrasound Report Signed Patient: VIMAL FUNES MR#: [id number] : 2000 Acct:[id number] Age/Sex: 24 / F ADM Date: 03/08/25 Loc: US Attending Dr: Jose Rodriguez D.O. Ordering Physician: Jose Rodriguez D.O. Date of Service: 03/08/25 Procedure(s): US OB cervical length Accession Number(s): [id number] cc: JENNIFER SEE ; Jose Rodriguez D.O. [place] [id number] Patient Name: VIMAL FUNES MRN: [facility]:[id number] date: 2000 Sex: F Assigned Patient Location: US Current Patient Location: US Accession/Order Number: [id number] Exam Date: 03/08/2025 20:31 Report Date: 03/08/2025 20:36 At the request of: JOSE RODRIGUEZ DO Procedure: US OB anatomy Ultrasound assessment of cervical length Cervical length is 4.0 cm. Cervical os is closed. US/US OB cervical length IMPRESSION: Cervical length of 4.0 cm. Ultrasound assessment of anatomy HISTORY: Anatomic survey Fetus in variable presentation. Amniotic fluid subjectively normal. Placenta is in a fundal position. The placental edge is 5.5 cm from the cervical os. The heart rate 165 bpm. Following anatomy visualized: Lateral ventricles, cerebellum, posterior fossa, nose and lips, orbits, four-chamber heart, right ventricular outflow track and left ventricular outflow track, diaphragm, stomach, kidneys, abdominal cord insertion, bladder, umbilical arteries, 3 vessel cord. There is suboptimal assessment of the spine and extremities. There is some limitations of the nose and lip assessment due to position. The aspirate age 19 weeks 3 days. Estimated delivery 07/30/2025. IMPRESSION: Suboptimal assessment of the nose and lips spine and extremities due to position. Remaining anatomy unremarkable. Single live intrauterine gestation at 19 weeks 3 days. Impression dictated by: Shivam Knapp M.D. 03/08/2025 8:36 PM Dictation Location: [facility] Electronically authenticated by: [id number] Y Date: 03/08/2025 20:36 Dictated By: Shivam Knapp D.O. Signed By: 03/08/252037 DD/ 35 TD/TT: Wind Turbine Mechanic: [facility] IGP,APTIMA HPV,AGE GDLNon AGE GDLN ACOG TESTING Note . [facility] Comment on above: TESTS RESULT FLAG UN ITS REF RANGE LAB Clinician Provided Cytology Information Source.............Endocervix No. of containers..01 ThinPrep Vial Age Algo ACOG Yris... - 01 FLAG LEGEND: L-Low Normal,H-High Normal,LL-Alert Low,HH-Alert High <-Panic Low,>-Panic High,A-Abnormal,AA-Critical Abnormal Performed at: 01 =G [facility] [place] [address] Jenise Byrne MD, IGP, RFX APTIMA HPV ASCU Note . [facility] Comment on above: TESTS RESULT FLAG UN ITS REF RANGE LAB DIAGNOSIS: 02 NEGATIVE FOR INTRAEPITHELIAL LESION OR MALIGNANCY. Specimen adequacy: 02 Satisfactory for evaluation. Endocervical and/or squamous metaplastic cells (endocervical component) are present. Performed by: Hussein Alvarez, Otr Truck Driver ([facility]) . 02 Note: Note 02 The [...] <-Panic Low,>-Panic High,A-Abnormal,AA-Critical Abnormal Performed at: [address] [facility] [address] [place] [address] Jenise Byrne MD, Performed at: =G - [facility] [address], [place] [id number] Logistics Supply Officer: Jenise Byrne MD, Phone: [phone] Performed at: - [facility] [id number] Logistics Supply Officer: Jenise Byrne MD, Phone: [phone] SPATULA-ALONE ENDOCERVIX [facility] Healthcar e RECURRENT VAGINITIS (HTRX)on 02-22-2025 ATOPOBIUM VAGINAE 0 [facility] ATOPOBIUM VAGINAE Not detected [facility] BVAB 2,3 (BACTERIAL VAGINOSIS ASSOCIATED BACTERIA 2, 3); MOBILUNCUS SPP 0 [facility] Healthcare BVAB 2,3 (BACTERIAL VAGINOSIS ASSOCIATED BACTERIA 2, 3); MOBILUNCUS SPP Not detected [facility] SIMEON ALBICANS, PARAPSILOSIS, TROPICALIS 0 [facility] Healthcare SIMEON ALBICANS, PARAPSILOSIS, TROPICALIS Not detected [facility] SIMEON GLABRATA 0 [facility] SIMEON GLABRATA Not detected [facility] KRUSEI [facility] S[facility] KR[facility]I Not detected [facility]OM [facility] lthcare CHLAMYDIA TRACHOMATIS 0 [facility] S Healthcare CHLAMYDIA TRACHOMATIS Not detected N OM Healthcare GARDNERELLA VAGINALIS 0 [facility] S Healthcare GARDNERELLA VAGINALIS Not detected N [facility] Healthcare MEGASPHAERA (TYPES 1, 2) 0 [facility] MEGASPHAERA (TYPES 1, 2) Not detected [facility] MYCOPLASMA GENITALIUM 0 [facility] S Healthcare MYCOPLASMA GENITALIUM Not detected N [facility] Healthcare NEISSERIA GONORRHOEAE 0 [facility] S Healthcare NEISSERIA GONORRHOEAE Not detected N [facility] Healthcare TRICHOMONAS VAGINALIS 0 [facility] S Healthcare TRICHOMONAS VAGINALIS Not detected N [facility] Healthcare [facility] Urinalysis macro (dipstick) panel (U)on 02-20-2025 Bilirubin, UA Negative Negative - 4(70) +++ mg/dL [facility] Blood, UA Negative Negative - 50 Jason/mcL [facility] Clarity, UA Clear [facility] re Color, UA Yellow [facility] Health[facility] e Glucose, UA Negative Negative - 1999(110) ++++ mg/dL [facility] Interpretation and review of laboratory results Abnormal [facility] Ketones, UA Negative Negative - 160(16) ++++ mg/dL [facility] Leukocytes, UA Negative Negative - 500+++ Carlos/mcL [facility] Nitrite, UA Negative Negative - Positive [facility] pH, UA 7 5 - 9 [facility] Health[facility] e Protein, UA Negative Negative - 1999(20) ++++ mg/dL [facility] Spec Grav, UA 1.01 1 - 1.03 [facility] Urobilinogen, UA 0.2 0.2 - 12 [facility]dL [facility] Urinalysis macro (dipstick) panel (U)on 01-14-2025 Bilirubin, UA Negative Negative - 4(70) +++ mg/dL [facility] Blood, UA Positive Negative - 50 Jason/mcL [facility] Comment on above: trace-intact Clarity, UA Clear [facility] re Color, UA Yellow [facility] Glucose, UA Negative Negative - 1999(110) ++++ mg/dL [facility] Interpretation and review of laboratory results Abnormal [facility] Ketones, UA Negative Negative - 160(16) ++++ mg/dL [facility] Leukocytes, UA Negative Negative - 500+++ Carlos/mcL [facility] Nitrite, UA Negative Negative - Positive [facility] pH, UA 6 5 - 9 [facility] e Protein, UA Negative Negative - 1999(20) ++++ mg/dL [facility] Spec Grav, UA 1.005 1 - 1.03 [facility] Urobilinogen, UA 0.2 0.2 - 12 mg/dL [facility] Health[facility] e ALL CBC WITH AUTO DIFFon BASOPHILS ABSOLUTE AUTO 0 [facility] Basophils/100 WBC (Bld) 0.4 % 0.2 - 2.0 % [facility] Eosinophils/100 WBC (Bld) 1.7 % 0.9 - 7.0 % [facility] Erythrocyte distribution width (RBC) [Ratio] 12.3 % 11.0 - 15.0 % [facility] Hematocrit (Bld) [Volume fraction] 42.5 % 36.0 - 48.0 % [facility] Hemoglobin (Bld) [Mass/Vol] 14.7 g/dL 12.0 - 16.0 g/dL [facility] IMMATURE GRANULOCYTES ABS AUTO 0.02 [facility] Immature granulocytes/100 WBC (Bld) 0.2 % 0.0 - 0.5 % [facility] Interpretation and review of laboratory results Abnormal [facility] LYMPHOCYTES ABSOLUTE AUTO 1.4 [facility] Lymphocytes/100 WBC (Bld) 15.4 % Low 20.5 - 60.0 % [facility] MCH (RBC) [Entitic mass] 31.6 pg 26.7 - 34.0 pg [facility] MCHC (RBC) [Mass/Vol] 34.6 g/dL 29.9 - 35.2 g/dL [facility] MCV (RBC) [Entitic vol] 91.4 fL 81.0 - 99.0 fL [facility] MONOCYTES ABSOLUTE AUTO 0.5 [facility] Monocytes/100 WBC (Bld) 5.4 % 1.7 - 12.0 % [facility] NEUTROPHILS ABSOLUTE AUTO 7 High [facility] Neutrophils/100 WBC (Bld) 76.9 % High 43.0 - 75.0 % [facility] Platelet mean volume (Bld) [Entitic vol] 10.1 fL 9.5 - 13.5 fL [facility] TBH EO # 0.2 [facility] Healthcar e TBH PLT 216 [facility] Health[facility] e TBH RBC 4.65 [facility] Health[facility] e TBH WBC 9.2 [facility] Health[facility] e [facility] Health[facility] e US OB TRANSVAGINALon 025 US [...] II, MD, PHD at 14-Dec-2024 08:35:59 PM [facility] Normal Not Available Comment on above: Order Comment: US OB TRANSVAGINAL No LMP recorded. TBH PREG QUANT HCGon 11-21- 025 HCG QUANTITATIVE 90749 mIU/mL [facility] Comment on above: 5-50 0.2-1 WEEK 50-500 1-2 WEEKS 100-5,000 2-3 WEEKS 500-10,000 3-4 WEEKS 1,000-50,000 4-5 WEEKS 10,000-100,000 5-6 WEEKS 15,000-200,000 6-8 WEEKS 10,000-100,000 2-3 MON[facility]S [facility] PREG QUANT HCGon 025 HCG QUANTITATIVE 6254 mIU/mL [facility] Comment on above: 5-50 0.2-1 WEEK 50-500 1-2 WEEKS 100-5,000 2-3 WEEKS 500-10,000 3-4 WEEKS 1,000-50,000 4-5 WEEKS 10,000-100,000 5-6 WEEKS 15,000-200,000 6-8 WEEKS 10,000-100,000 2-3 [facility] PREG QUANT HCGon 024 HCG QUANTITATIVE 6 mIU/mL [facility] Hea ltare Comment on above: 5-50 0.2-1 WEEK 50-500 1-2 WEEKS 100-5,000 2-3 WEEKS 500-10,000 3-4 WEEKS 1,000-50,000 4-5 WEEKS 10,000-100,000 5-6 WEEKS 15,000-200,000 6-8 WEEKS 10,000-100,000 2-3 MONTHS [facility] ALL CBC WITH AUTO DIFFon BASOPHILS ABSOLUTE AUTO 0 [facility] Basophils/100 WBC (Bld) 0.5 % 0.2 - 2.0 % [facility] Eosinophils/100 WBC (Bld) 6.2 % 0.9 - 7.0 % [facility] Erythrocyte distribution width (RBC) [Ratio] 11.9 % 11.0 - 15.0 % [facility] Hematocrit (Bld) [Volume fraction] 43.8 % 36.0 - 48.0 % [facility] Hemoglobin (Bld) [Mass/Vol] 14.8 g/dL 12.0 - 16.0 g/dL [facility] IMMATURE GRANULOCYTES ABS AUTO 0.02 [facility] Immature granulocytes/100 WBC (Bld) 0.2 % 0.0 - 0.5 % [facility] LYMPHOCYTES ABSOLUTE AUTO 2 [facility] Lymphocytes/100 WBC (Bld) 22.1 % 20.5 - 60.0 % [facility] MCH (RBC) [Entitic mass] 31.7 pg 26.7 - 34.0 pg [facility] MCHC (RBC) [Mass/Vol] 33.8 g/dL 29.9 [...] vol] 10 fL 9.5 - 13.5 fL [facility] TBH EO # 0.6 [facility] Health[facility] TB PLT 236 [facility] TB RBC 4.67 [facility] TB WBC 8.9 [facility] Health[facility] e [place] 08-10-2024 L Specimen: [id number] Received: 08/10/24 Status: CAROL Hoang Num: [id number] Spec Type: Surgical Subm Dr: Jose Rodriguez Tissues: A Products of Conception - Spontaneous or Missed (CONTENTS OF CONCEPT Procedures: HE/2, Gross/Micro L4 Age/ Patient Sex Location Account Attending Physician Vimal Funes LABELL [id number] Jose Rodriguez SPEC NUM: [id number] RECD: 08/10/24 STATUS: CAROL HOANG NUM: [id number] CAROLIN: 08/10/24-1001 [facility] DR: Jose Rodriguez ENTERED: 08/10/[address] [facility] [address]: Vignesh Morataya SPEC TYPE: Surgical DEPT: MONICA ALTMAN ENTERED BY: [id number] RECV BY: [id number] ORDERED: HE/2, Gross/Micro L4 ORDERED: HE/2, Gross/Micro [...] villi and decidua. No tissue is identified. High School Librarian sections of the chorionic villi are submitted in cassette A1 with inbound customer service representative sections of the decidua is submitted in cassette A2. (2, ss, [id number]) CPT Codes 98520 Specimen: [id number] Received: 08/10/24 Status: CAROL Hoang Num: [id number] Spec Type: Surgical Subm Dr: Jose Rodriguez Tissues: A Products of Conception - Spontaneous or Missed (CONTENTS OF CONCEPT Procedures: HE/Odell Flores/Agusto L4 Patient: Vimal Funes [id number] (Continued) Signed (signature on file) Josh Aragon MD 08/13/24 1647 Normal [facility] TBH PREG QUANT HCGon 024 HCG QUANTITATIVE 240 mIU/mL [facility] Comment on above: 5-50 0.2-1 WEEK 50-500 1-2 WEEKS 100-5,000 2-3 WEEKS 500-10,000 3-4 WEEKS 1,000-50,000 4-5 WEEKS 10,000-100,000 5-6 WEEKS 15,000-200,000 6-8 WEEKS 10,000-100,000 2-3 MONTHS [facility] Healthcar e ALL CBC WITH AUTO [...] fraction] 44.7 % 36.0 - 48.0 % [facility] Hemoglobin (Bld) [Mass/Vol] 15.3 g/dL 12.0 - [...] [facility] MONOCYTES ABSOLUTE AUTO 0.4 [facility] Monocytes/100 WBC (Bld) 3.7 % 1.7 - 12.0 % [facility] NEUTROPHILS ABSOLUTE AUTO 8.2 High [facility] Neutrophils/100 WBC (Bld) 77.8 % High 43.0 - 75.0 % [facility] Platelet mean volume (Bld) [Entitic vol] 10 fL 9.5 - 13.5 fL [facility] TBH EO # 0.3 [facility] TB PLT 263 [facility] RBC 4.82 [facility] WBC 10.6 [facility] No Panel Informationon 07-21 [facility] DRUG SCREEN RAPID (URINE )on 07-21-2024 [...] [facility] METHADONE SCREEN URINE Negative NEGATIVE NO [facility] METHAMPHETAMINES SCREEN URINE Negative NEGATIVE [facility] OPIATE SCREEN URINE Negative NEGATIVE [facility] OXYCODONE SCREEN URINE Negative NEGATIVE NO [facility] PHENCYCLIDINE SCREEN URINE Negative NEGATIVE [facility] [facility] TRICYCLIC ANTIDEPRESSANT URINE Negative NEGATIVE [facility] REEFLEX IF POSITIVE CLINISYNC HCG ( test) Ql (U)o n 06-29-2024 Interpretation and review of laboratory results Abnormal [facility] Preg Test, Ur Positive [facility] Urinalysis macro (dipstick) panel (U)on 06-29-2024 Bilirubin, UA Negative Negative - 4(70) +++ mg/dL [facility] Blood, UA Negative Negative - 50 Jason/mcL [facility] Clarity, UA Clear [facility] re Color, UA Yellow [facility] e Glucose, UA Negative Negative [...] Hospital pH, UA 7.0 5 - 9 [facility] e Protein, UA Negative Negative - 2000(20) ++++ mg/dL [facility] Spec Grav, UA 1.015 1 - 1.03 [facility] Urobilinogen, UA 0.2 0.2 - 12 mg/dL [facility] X[facility] hand RT min 3V*on 023 XR hand RT min 3V* [facility] [employer] Other XR hand RT min 3V* [facility] [employer] Other XR hand RT min 3V* [address] [place] [address] [employer] Other XR hand RT min 3V* [facility] [employer] Other XR hand RT min 3V* XRay Report [employer] Other XR hand RT min 3V* Signed [employer] Other XR hand RT min 3V* Patient: Vimal Funes MR#: [id number] [employer] Other XR hand RT min 3V* 18 [employer] Other XR hand RT min 3V* : 2000 Acct:[id number] [employer] Other XR hand RT min 3V* Age/Sex: 22 / F ADM Date: 12/26/22 [employer] Other XR hand RT min 3V* Loc: XDUCLY Room: Type: [facility] [employer] Other XR hand RT min 3V* Attending Dr: Jennifer Huston STICK PULLER-C [employer] Other XR hand RT min 3V* Copies to: JEFFERY Rodriguez [employer] Other XR hand RT min 3V* Ordering Provider: JEFFERY Rodriguez [employer] Other XR hand RT min 3V* Date of Service: 12/26/22 [employer] Other XR hand RT min 3V* XR/XR hand RT min 3V*: RIGHT HAND INJURY [employer] Other XR hand RT min 3V* RIGHT HAND - 4 views [employer] Other XR hand RT min 3V* REASON FOR EXAM: Patient had right thumb hyperextended yesterday when trying to open the door. Now [employer] Other XR hand RT min 3V* with pain. [employer] Other XR hand RT min 3V* COMPARISON: None [employer] Other XR hand RT min 3V* FINDINGS: [employer] Other XR hand RT min 3V* No focal soft tissue abnormality. There appears to be avulsion fracture involving the base of the [employer] Other XR hand RT min 3V* distal phalanx of the thumb. Joint spaces appear maintained. No bony erosions. [employer] Other XR hand RT min 3V* XR/XR hand RT min 3V* [employer] Other XR hand RT min 3V* IMPRESSION: [employer] Other XR hand RT min 3V* AVULSION FRACTURE INVOLVING THE BASE OF THE DISTAL PHALANX OF THE THUMB. [employer] Other XR hand RT min 3V* Impression dictated by: Bulmaro Arias Jr., D.OGene12/26/2022 1:44 PM [employer] Other XR hand RT min 3V* Dictation Location: RADIO-PC-15 [employer] Other XR hand RT min 3V* Transcribed By: LYNETTE 12/26/22 1344 [employer] Other XR hand RT min 3V* Dictated By: Bulmaro Arias Jr, 12/26/22 1343 [employer] Other XR hand RT min 3V* Signed By: [employer] Other XR hand RT min 3V* 12/26/[address] [place] [address] [employer] Other PAP ACOG PANEL 2: 22 to 30on 11-09-2022 . . Normal [facility] Comment on above: Performed By: #### [id number] ####[facility] [address] [place] [address]DrGene Mancini Age Gdln ACOG Testing - [facility] Comment on above: Performed By: #### [id number] ####[facility] [address] [place] [address]DrGene Mancini DIAGNOSIS: Comment [facility] Comment on above: Result Comment: NEGA TIVE FOR INTRAEPITHELIAL LESION OR MALIGNANCY. Performed By: #### [id number] ####[facility] [address] [place] [address]DrGene Mancini Methodology: Comment [facility] Comment on above: Result Comment: This liquid based ThinPrep(R) pap test was screened with the use of an image guided system. Performed By: #### [id number] ####[facility] [address] [place], [place] [address]DrGene Mancini Note: Comment [facility] Comment on above: Result Comment: The Pap smear is a screening test designed to aid in the detection of premalignant and malignant conditions of the uterine cervix. It is not a diagnostic procedure and should not be used as the sole means of detecting cervical cancer. Both false-positive and false-negative reports do occur. . Performed By: #### [id number] ####[facility] [address] [place] [address]Dr. Donis Mancini Performed by: Comment Normal [facility] Comment on above: Result Comment: Zuleima Lin, Audit Machine Operator (ASCP) Performed By: #### [id number] ####[facility] [address] [place], [place] [address]DrGene Mancini Reflex Criteria: Comment Normal [facility] Comment on above: Result Comment: The HPV DNA reflex criteria were not met with this specimen result therefore, no HPV testing was performed. . Performed By: #### 4 [id number] ####[facility] [address] [place], [place] [address]DrGene Mancini Specimen adequacy: Comment Normal [facility] Comment on above: Result Comment: Sati sfactory for evaluation. Endocervical and/or squamous metaplastic cells (endocervical component) are present. Performed By: #### 4 [id number] ####[facility] [address] [place], [place] [address]Dr. Donis Mancini Cytology Cervical or vaginal smear or scraping studyOrdered By: Jael Nix on 11-02-2022 [facility] CBC AUTO DIFFon 08-11-2022 BASO # 0.0 103/ul Normal 0.0-0.1 [facility] Comment on above: Performed By: #### C T/NGNA #### [facility] [address] [place] [address] Dr. Donis Mancini Basophils/100 WBC (Bld) 0.2 % Normal 0.2-2.0 [facility] Comment on above: Performed By: #### C T/NGNA #### [facility] [address] [place] [address] Dr. Donis Mancini EO # 0.1 103/ul Normal 0.0-0.7 [facility] Comment on above: Performed By: #### C T/NGNA #### [facility] [address] [place] [address] Dr. Donis Mancini Eosinophils/100 WBC (Bld) 0.5 % Critically low 0.9-7.0 [facility] Comment on above: Performed By: #### C T/NGNA #### [facility] [address] [place] [address] Dr. Donis Mancini Erythrocyte distribution width (RBC) [Ratio] 12.5 % Normal 11.0-15.0 [facility] Comment on above: Performed By: #### C T/NGNA #### [facility] [address] [place] [address] Dr. Donis Mancini Hematocrit (Bld) [Volume fraction] 35.9 % Critically low 36.0-48.0 [facility] Comment on above: Performed By: #### C T/NGNA #### [facility] [address] [place] [address] Dr. Donis Mancini Hemoglobin (Bld) [Mass/Vol] 12.4 g/dL Normal 12.0-16.0 [facility] Comment on above: Result Comment: michelet ent delivered Performed By: #### C T/NGNA #### [facility] [address] [place] [address] Dr. Donis Mancini IG # 0.10 10e3/ul Critically high 0.00-0.03 [facility] Comment on above: Performed By: #### C T/NGNA #### [facility] [address] [place] [address] Dr. Donis Mancini IG % 0.5 % Normal 0.0-0.5 [facility] Comment on above: Performed By: #### C T/NGNA #### [facility] [address] [place] [address] Dr. Donis Mancini LYMPH # 1.5 103/ul Normal 1.2-3.8 [facility] Comment on above: Performed By: #### C T/NGNA #### [facility] [address] [place] [address] Dr. Donis Mancini Lymphocytes/100 WBC (Bld) 7.6 % Critically low 20.5-60.0 [facility] Comment on above: Performed By: #### C T/NGNA #### [facility] [address] [place] [address] Dr. Donis Mancini MANUAL DIFF REQ NO Normal [facility] Comment on above: Performed By: #### C T/NGNA #### [facility] [address] [place] [address] Dr. Donis Mancini MCH (RBC) [Entitic mass] 32.2 pg Normal 26.7-34.0 [facility] Comment on above: Performed By: #### C T/NGNA #### [facility] [address] [place] [address] Dr. Donis Mancini MCHC (RBC) [Mass/Vol] 34.5 g/dL Normal 29.9-35.2 [facility] Comment on above: Performed By: #### C T/NGNA #### [facility] [address] [place] [address] Dr. Donis Mancini MCV (RBC) [Entitic vol] 93.2 fL Normal 81.0-99.0 [facility] Comment on above: Performed By: #### C T/NGNA #### [facility] [address] [place] [address] Dr. Donis Mancini MONO # 1.3 103/ul Critically high 0.3-0.8 [facility] Comment on above: Performed By: #### C T/NGNA #### [facility] [address] [place] [address] Dr. Donis Mancini Monocytes/100 WBC (Bld) 6.8 % Normal 1.7-12.0 [facility] Comment on above: Performed By: #### C T/NGNA #### [facility] [address] [place] [address] Dr. Donis Mancini NEUT # 16.2 103/ul Critically high 1.4-6.5 [facility] Comment on above: Performed By: #### C T/NGNA #### [facility] [address] [place] [address] Dr. Donis Mancini Neutrophils/100 WBC (Bld) 84.4 % Critically high 43.0-75.0 [facility] Comment on above: Performed By: #### C T/NGNA #### [facility] [address] [place] [address] Dr. Donis Mancini Platelet mean volume (Bld) [Entitic vol] 11.8 fL Normal 9.5-13.5 [facility] Comment on above: Performed By: #### C T/NGNA #### [facility] [address] [address] [address] Donis Mancini PLT 156 103/ul Normal 150-450 [facility] Comment on above: Performed By: #### C T/NGNA #### [facility] [address] [place] [address] Dr. Donis Mancini RBC 3.85 106/ul Critically low 4.20-5.40 [facility] Comment on above: Performed By: #### C T/NGNA #### [facility] [address] [place] [address] Dr. Donis Mancini WBC 19.2 103/ul Critically high 4.0-11.0 [facility] Comment on above: Performed By: #### C T/NGNA #### [facility] [address] [place] [address] Dr. Donis Mancini Covid-19 PCR ([facility])on 07-27 SARS-CoV-2 (COVID-19) RNA INESSA+probe Ql (Unsp spec) Not detected Normal NOT DETECTED [facility] Comment on above: Result Comment: When [...] for this test is supported by the [place] of Health and Human Service's declaration that [...] be used). Performed By: #### C VDTBH ####[facility] [address] [place] [address]Dr. Donis Mancini DRUG SCREEN RAPID (URINE)on 08-10-2022 AMP Negative Normal NEGATIVE [facility] Comment on above: Performed By: #### D RUGRPD ####[facility] [address] [place] [address]Dr. Laceyjavi Mancini BAR Negative Normal NEGATIVE [facility] Comment on above: Performed By: #### D RUGRPD ####[facility] [address] [place], [place] [address]Dr. Donis Mancini BUP Negative Normal NEGATIVE [facility] Comment on above: Performed By: #### D RUGRPD ####[facility] [address] [place], [place] [address]Dr. Donis Mancini BZO Negative Normal NEGATIVE [facility] Comment on above: Performed By: #### D RUGRPD ####[facility] [address] [place], [place] [address]Dr. Donis Mancini ALEXA Negative Normal NEGATIVE [facility] Comment on above: Performed By: #### D RUGRPD ####[facility] [address] [place], [place] [address]Dr. Donis [facility] CUT-OFFS SEE BELOW Normal [facility] Comment on above: Result Comment: AMP (Amphetamine): 500ng/mL, BAR (Barbituates): 200 ng/mL, BZO (Benzodiazepines): 150 ng/mL, BUP (Buprenorphine): 10 ng/mL, ALEXA (Cocaine): 150 ng/mL, mAMP (Methamphetamine): 500 ng/mL, MTD (Methadone): 200 ng/mL, OPI (Opiates): 100 ng/mL, OXY (Oxycodone): 100 ng/mL, PCP (Phencyclidine): 25 ng/mL, PPX (Propoxyphene): 300 ng/mL, THC (Cannabinoids): 50 ng/mL, TCA (Trycyclic Antidepressants): 300 ng/mL Performed By: #### D RUGRPD ####[facility] [address] [place] [address]Dr. Donis Mancini DRUG CUT HEADER DRUG CLASS TEST SYSTEM CUT-OFF CONCENTRATIONS ARE FOLLOWS: Normal [facility] Comment on above: Performed By: #### D RUGRPD ####[facility] [address] [place] [address]Dr. Donis Mancini mAMP Negative Normal NEGATIVE [facility] Comment on above: Performed By: #### D RUGRPD ####[facility] [address] [place] [address]Dr. Donis Mancini MTD Negative Normal NEGATIVE [facility] Comment on above: Performed By: #### D RUGRPD ####[facility] [address] [place], [place] [address]Dr. Donis Mancini OPI Negative Normal NEGATIVE [facility] Comment on above: Performed By: #### D RUGRPD ####[facility] [address] [place], [place] [address]Dr. Donis Mancini OXY Negative Normal NEGATIVE [facility] Comment on above: Performed By: #### D RUGRPD ####[facility] [address] [place] [id number]. Donis Mancini PCP Negative Normal NEGATIVE [facility] Comment on above: Performed By: #### D RUGRPD ####[facility] [address] [place] [address]Dr. Donis Mancini PPX Negative Normal NEGATIVE [facility] Comment on above: Performed By: #### D RUGRPD ####[facility] [address] [place] [address]Dr. Donis Mancini TCA Negative Normal NEGATIVE [facility] Comment on above: Performed By: #### D RUGRPD ####[facility] [address] [place] [address]Dr. Donis Mancini THC Negative Normal NEGATIVE [facility] Comment on above: Performed By: #### D RUGRPD ####[facility] [address] [place], [place] [address]Je. Donis Mancini TYPE AND SCREENon 08-10-2022 TYPE AND SCREEN Negative Normal [facility] Comment on above: Performed By: #### T NS ####[facility] [address]sw[address] [place], [place] [address]Ym. Donis Mancini US PREG BIOPHY W NON [...] ESTEFANY BENNETT Date: 2022-08-10 07:18 Normal [facility] US PREG GROWTHon 08-10-2022 US PREG [...] by: ESTEFANY BENNETT Date: 2022-08-10 07:16 Normal [facility] CBC AUTO DIFFon 08-09-2022 BASO # 0.0 103/ul Normal 0.0-0.1 [facility] Comment on above: Performed By: #### C BC ####[facility] [address] [place], [place] [address]Dr. Donis Live Basophils/100 WBC (Bld) 0.2 % Normal 0.2-2.0 [facility] Comment on above: Performed By: #### C BC ####[facility] [address] [place], [place] [address]Dr. Donis Live EO # 0.4 103/ul Normal 0.0-0.7 [facility] Comment on above: Performed By: #### C BC ####[facility] [address] [place], [place] [address]Dr. Donis Live Eosinophils/100 WBC (Bld) 2.8 % Normal 0.9-7.0 [facility] Comment on above: Performed By: #### C BC ####[facility] [address] [place], [place] [address]Dr. Donis Live Erythrocyte distribution width (RBC) [Ratio] 12.2 % Normal 11.0-15.0 [facility] Comment on above: Performed By: #### C BC ####[facility] [address] [place], [place] [address]Dr. Donis Mancini Hematocrit (Bld) [Volume fraction] 41.4 % Normal 36.0-48.0 [facility] Comment on above: Performed By: #### C BC ####[facility] [address] [place], [place] [address]Dr. Donis Mancini Hemoglobin (Bld) [Mass/Vol] 14.4 g/dL Normal 12.0-16.0 [facility] Comment on above: Performed By: #### C BC ####[facility] [address] [place], [place] [address]Dr. Donis Mancini IG # 0.06 10e3/ul Critically high 0.00-0.03 [facility] Comment on above: Performed By: #### C BC ####[facility] [address] [place], [place] [address]Dr. Donis Mancini IG % 0.5 % Normal 0.0-0.5 [facility] Comment on above: Performed By: #### C BC ####[facility] [address] [place] [address]Dr. Donis Mancini LYMPH # 1.5 103/ul Normal 1.2-3.8 [facility] Comment on above: Performed By: #### C BC ####[facility] [address] [place] [address]Dr. Donis Mancini Lymphocytes/100 WBC (Bld) 11.7 % Critically low 20.5-60.0 [facility] Comment on above: Performed By: #### C BC ####[facility] [address] [place], [place] [address]Dr. Donis Mancini MANUAL DIFF REQ NO Normal [facility] Comment on above: Performed By: #### C BC ####[facility] [address] [place], [place] [address]Dr. Donis Mancini MCH (RBC) [Entitic mass] 31.9 pg Normal 26.7-34.0 [facility] Comment on above: Performed By: #### C BC ####[facility] [address] [place], [place] [address]Dr. Donis Mancini MCHC (RBC) [Mass/Vol] 34.8 g/dL Normal 29.9-35.2 [facility] Comment on above: Performed By: #### C BC ####[facility] [address] [place], [place] [address]Dr. Donis Mancini MCV (RBC) [Entitic vol] 91.8 fL Normal 81.0-99.0 [facility] Comment on above: Performed By: #### C BC ####[facility] [address] [place], [place] [address]Dr. Donis Mancini MONO # 1.0 103/ul Critically high 0.3-0.8 [facility] Comment on above: Performed By: #### C BC ####[facility] [address] [place] [address]Dr. Donis Mancini Monocytes/100 WBC (Bld) 7.5 % Normal 1.7-12.0 [facility] Comment on above: Performed By: #### C BC ####[facility] [address] [place] [address]DrGene Rahmanjavi Mancini NEUT # 10.0 103/ul Critically high 1.4-6.5 [facility] Comment on above: Performed By: #### C BC ####[facility] [address] [place] [address]DrGene Mancini Neutrophils/100 WBC (Bld) 77.3 % Critically high 43.0-75.0 [facility] Comment on above: Performed By: #### C BC ####[facility] [address] [place] [address]DrGene Mancini Platelet mean volume (Bld) [Entitic vol] 11.6 fL Normal 9.5-13.5 [facility] Comment on above: Performed By: #### C BC ####[facility] [address] [place] [address]Dr. Donis Mancini PLT 184 103/ul Normal 150-450 [facility] Comment on above: Performed By: #### C BC ####[facility] [address] [place] [id number] Mancini RBC 4.51 106/ul Normal 4.20-5.40 [facility] Comment on above: Performed By: #### C BC ####[facility] [address] [place] [id number] Mancini WBC 12.9 103/ul Critically high 4.0-11.0 [facility] Comment on above: Performed By: #### C BC ####[facility] [address] [place] [id number]. Donis Mancini LDHon 08-09-2022 LDH 167 U/L Normal 81-234 [facility] Comment on above: Performed By: #### C T/NGNA #### [facility] [address] [address] [address] Donis Mancini PROF 14(COMP METB)on 11-14-2 022 Albumin [Mass/Vol] 2.7 g/dL Critically low 3.4-5.0 [facility] Comment on above: Performed By: #### C T/NGNA #### [facility] [address] [address] [address] Donis Mancini Albumin/Globulin [Mass ratio] 0.6 {ratio} Normal [facility] Comment on above: Performed By: #### C T/NGNA #### [facility] [address] [address] [address] Donis Mancini ALP [Catalytic activity/Vol] 176 U/L Critically high 46-116 [facility] Comment on above: Performed By: #### C T/NGNA #### [facility] [address] [place] [address] Dr. Donis Mancini ALT [Catalytic activity/Vol] 20 U/L Normal 14-59 [facility] Comment on above: Performed By: #### C T/NGNA #### [facility] [address] [address] [address] Donis Mancini Anion gap [Moles/Vol] 12.9 mmol/L Normal [facility] Comment on above: Performed By: #### C T/NGNA #### [facility] [address] [address] [address] Donis Mancini AST [Catalytic activity/Vol] 20 U/L Normal 15-37 [facility] Comment on above: Performed By: #### C T/NGNA #### [facility] [address] [address] [address] Donis Mancini Bilirubin [Mass/Vol] 0.1 mg/dL Critically low 0.2-1.0 [facility] Comment on above: Performed By: #### C T/NGNA #### [facility] [address] [address] [address] Donis Mancini Calcium [Mass/Vol] 9.1 mg/dL Normal 8.5-10.1 [facility] Comment on above: Performed By: #### C T/NGNA #### [facility] [address] [place] [address] Dr. Donis Mancini Chloride [Moles/Vol] 104 mmol/L Normal 98-107 [facility] Comment on above: Performed By: #### C T/NGNA #### [facility] [address] [address] [address] Donis Mancini CO2 [Moles/Vol] 22.9 mmol/L Normal 21.0-32.0 [facility] Comment on above: Performed By: #### C T/NGNA #### [facility] [address] [address] [address] Donis Mancini Creatinine [Mass/Vol] 0.43 mg/dL Critically low 0.55-1.02 [facility] Comment on above: Performed By: #### C T/NGNA #### [facility] [address] [place] [address] Dr. Donis Mancini EGFR-AF [facility] LUCIAN >60 Normal >=60 [facility] Comment on above: Performed By: #### C T/NGNA #### [facility] [address] [address] [address] Donis Mancini EGFR-NON AF [facility] >60 Normal >=60 [facility] Comment on above: Performed By: #### C T/NGNA #### [facility] [address] [address] [address] Donis Mancini Globulin (S) [Mass/Vol] 4.2 g/dL Normal [facility] Comment on above: Performed By: #### C T/NGNA #### [facility] [address] [address] [address] Donis Mancini Glucose [Mass/Vol] 95 mg/dL Normal 74-106 [facility] Comment on above: Performed By: #### C T/NGNA #### [facility] [address] [address] [address] Donis Mancini Potassium [Moles/Vol] 3.8 mmol/L Normal 3.5-5.1 [facility] Comment on above: Performed By: #### C T/NGNA #### [facility] [address] [place] [address] Dr. Donis Mancini Protein [Mass/Vol] 6.9 g/dL Normal 6.4-8.2 [facility] Comment on above: Performed By: #### C T/NGNA #### [facility] [address] [place] [address] Dr. Donis Mancini Sodium [Moles/Vol] 136 mmol/L Normal 136-145 [facility] Comment on above: Performed By: #### C T/NGNA #### [facility] [address] [place] [address] Dr. Donis Mancini Urea nitrogen [Mass/Vol] 10.0 mg/dL Normal 7.0-18.0 [facility] Comment on above: Performed By: #### C T/NGNA #### [facility] [address] [place] [address] Dr. Donis Mancini Urea nitrogen/Creatinine [Mass ratio] 23.3 mg/mg Normal [facility] Comment on above: Performed By: #### C T/NGNA #### [facility] [address] [place] [address] Dr. Donis Mancini URIC ACID SERUMon 08-09-2022 Urate [Mass/Vol] 3.6 mg/dL Normal 2.6-6.0 [facility] Comment on above: Performed By: #### C T/NGNA #### [facility] [address] [place] [address] Dr. Donis Mancini CBC AUTO DIFFon 08-07-2022 BASO # 0.0 103/ul Normal 0.0-0.1 [facility] Comment on above: Performed By: #### U AMIC #### [facility] [address] [place] [address] Dr. Donis Mancini Basophils/100 WBC (Bld) 0.2 % Normal 0.2-2.0 [facility] Comment on above: Performed By: #### U AMIC #### [facility] [address] [place] [address] Dr. Donis Mancini EO # 0.2 103/ul Normal 0.0-0.7 [facility] Comment on above: Performed By: #### U AMIC #### [facility] [address] [address] [address] Donis Mancini Eosinophils/100 WBC (Bld) 1.8 % Normal 0.9-7.0 [facility] Comment on above: Performed By: #### U AMIC #### [facility] [address] [place] [address] Dr. Donis Mancini Erythrocyte distribution width (RBC) [Ratio] 12.3 % Normal 11.0-15.0 [facility] Comment on above: Performed By: #### U AMIC #### [facility] [address] [place] [address] Dr. Donis Mancini Hematocrit (Bld) [Volume fraction] 45.7 % Normal 36.0-48.0 [facility] Comment on above: Performed By: #### U AMIC #### [facility] [address] [place] [address] Dr. Donis Mancini Hemoglobin (Bld) [Mass/Vol] 16.0 g/dL Normal 12.0-16.0 [facility] Comment on above: Performed By: #### U AMIC #### [facility] [address] [place] [address] Dr. Donis Mancini IG # 0.07 10e3/ul Critically high 0.00-0.03 [facility] Comment on above: Performed By: #### U AMIC #### [facility] [address] [place] [address] Dr. Donis Mancini IG % 0.5 % Normal 0.0-0.5 [facility] Comment on above: Performed By: #### U AMIC #### [facility] [address] [place] [address] Dr. Donis Mancini LYMPH # 1.5 103/ul Normal 1.2-3.8 [facility] Comment on above: Performed By: #### U AMIC #### [facility] [address] [place] [address] Dr. oDnis Mancini Lymphocytes/100 WBC (Bld) 11.2 % Critically low 20.5-60.0 [facility] Comment on above: Performed By: #### U AMIC #### [facility] [address] [address] [address] Donis Mancini MANUAL DIFF REQ NO Normal [facility] Comment on above: Performed By: #### U AMIC #### [facility] [address] [address] [address] Donis Mancini MCH (RBC) [Entitic mass] 32.0 pg Normal 26.7-34.0 [facility] Comment on above: Performed By: #### U AMIC #### [facility] [address] [address] [address] Donis Mancini MCHC (RBC) [Mass/Vol] 35.0 g/dL Normal 29.9-35.2 [facility] Comment on above: Performed By: #### U AMIC #### [facility] [address] [address] [address] Donis Mancini MCV (RBC) [Entitic vol] 91.4 fL Normal 81.0-99.0 [facility] Comment on above: Performed By: #### U AMIC #### [facility] [address] [address] [address] Donis Mancini MONO # 0.9 103/ul Critically high 0.3-0.8 [facility] Comment on above: Performed By: #### U AMIC #### [facility] [address] [address] [address] Donis Mancini Monocytes/100 WBC (Bld) 6.3 % Normal 1.7-12.0 [facility] Comment on above: Performed By: #### U AMIC #### [facility] [address] [address] [address] Donis Mancini NEUT # 10.9 103/ul Critically high 1.4-6.5 [facility] Comment on above: Performed By: #### U AMIC #### [facility] [address] [address] [address] Donis Mancini Neutrophils/100 WBC (Bld) 80.0 % Critically high 43.0-75.0 [facility] Comment on above: Performed By: #### U AMIC #### [facility] [address] [address] [address] Donis Mancini Platelet mean volume (Bld) [Entitic vol] 11.5 fL Normal 9.5-13.5 [facility] Comment on above: Performed By: #### U AMIC #### [facility] [address] [address] [address] Donis Mancini PLT 182 103/ul Normal 150-450 [facility] Comment on above: Performed By: #### U AMIC #### [facility] [address] [address] [address] Donis Mancini RBC 5.00 106/ul Normal 4.20-5.40 [facility] Comment on above: Performed By: #### U AMIC #### [facility] [address] [address] [address] Donis Mancini WBC 13.6 103/ul Critically high 4.0-11.0 [facility] Comment on above: Performed By: #### U AMIC #### [facility] [id number] Donis Mancini LDHon 08-07-2022 LDH 171 U/L Normal 81-234 [facility] Comment on above: Performed By: #### C MP, URIC, LDH ####[facility] [address] [address]Dr. Donis Mancini PROF 14(COMP METB)on 022 Albumin [Mass/Vol] 2.9 g/dL Critically low 3.4-5.0 [facility] Comment on above: Performed By: #### C MP, URIC, LDH ####[facility] [address] [id number]. Donis Mancini Albumin/Globulin [Mass ratio] 0.6 {ratio} Normal [facility] Comment on above: Performed By: #### C MP, URIC, LDH ####[facility] [address] [id number]. Donis Mancini ALP [Catalytic activity/Vol] 192 U/L Critically high 46-116 [facility] Comment on above: Performed By: #### C MP, URIC, LDH ####[facility] [address] [address]Dr. Donis Mancini ALT [Catalytic activity/Vol] 23 U/L Normal 14-59 [facility] Comment on above: Performed By: #### C MP, URIC, LDH ####[facility] [address] [place], [place] [address]Dr. Donis Mancini Anion gap [Moles/Vol] 14.4 mmol/L Normal [facility] Comment on above: Performed By: #### C MP, URIC, LDH ####[facility] [address] [place], [place] [address]Dr. Donis Mancini AST [Catalytic activity/Vol] 23 U/L Normal 15-37 [facility] Comment on above: Performed By: #### C MP, URIC, LDH ####[facility] [address] [place], [place] [address]Dr. Donis Mancini Bilirubin [Mass/Vol] 0.2 mg/dL Normal 0.2-1.0 [facility] Comment on above: Performed By: #### C MP, URIC, LDH ####[facility] [address] [place], [place] [address]Dr. Donis Mancini Calcium [Mass/Vol] 9.4 mg/dL Normal 8.5-10.1 [facility] Comment on above: Performed By: #### C MP, URIC, LDH ####[facility] [address] [place], [place] [address]Dr. Donis Mancini Chloride [Moles/Vol] 104 mmol/L Normal 98-107 [facility] Comment on above: Performed By: #### C MP, URIC, LDH ####[facility] [address] [place], [place] [address]Dr. Donis Mancini CO2 [Moles/Vol] 21.7 mmol/L Normal 21.0-32.0 [facility] Comment on above: Performed By: #### C MP, URIC, LDH ####[facility] [address] [id number]. Donis Mancini Creatinine [Mass/Vol] 0.46 mg/dL Critically low 0.55-1.02 [facility] Comment on above: Performed By: #### C MP, URIC, LDH ####[facility] [address] [id number]. Donis Mancini EGFR-AF [facility] LUCIAN >60 Normal >=60 [facility] Comment on above: Performed By: #### C MP, URIC, LDH ####[facility] [address] [id number]. Donis Mancini EGFR-NON AF [facility] LUCIAN >60 Normal >=60 [facility] Comment on above: Performed By: #### C MP, URIC, LDH ####[facility] [address] [address]Dr. Donis Mancini Globulin (S) [Mass/Vol] 4.6 g/dL Normal [facility] Comment on above: Performed By: #### C MP, URIC, LDH ####[facility] [address] [address]Dr. Donis Mancini Glucose [Mass/Vol] 89 mg/dL Normal 74-106 [facility] Comment on above: Performed By: #### C MP, URIC, LDH ####[facility] [address] [id number]. Donis Mancini Potassium [Moles/Vol] 4.1 mmol/L Normal 3.5-5.1 [facility] Comment on above: Performed By: #### C MP, URIC, LDH ####[facility] [address] [id number]. Donis Mancini Protein [Mass/Vol] 7.5 g/dL Normal 6.4-8.2 [facility] Comment on above: Performed By: #### C MP, URIC, LDH ####[facility] [address] [address]Dr. Donis Mancini Sodium [Moles/Vol] 136 mmol/L Normal 136-145 [facility] Comment on above: Performed By: #### C MP, URIC, LDH ####[facility] [address] [place], [place] [address]OvDr. Donis Mancini Urea nitrogen [Mass/Vol] 8.0 mg/dL Normal 7.0-18.0 [facility] Comment on above: Performed By: #### C MP, URIC, LDH ####[facility] [address] [id number] Mancini Urea nitrogen/Creatinine [Mass ratio] 17.4 mg/mg Normal [facility] Comment on above: Performed By: #### C MP, URIC, LDH ####[facility] [address] [phone]. Donis Mancini PROTIMEon 08-07-2022 INR Coag (PPP) [Relative time] {INR} Normal [facility] Comment on above: Performed By: #### U AMIC #### [facility] [address] [place] [address] Dr. Donis Mancini INR GUIDELINES SEE BELOW Normal [facility] Comment on above: Result Comment: NICCI RED INR: 2.0 - 3.0 CONDITIONS NOT LISTED BELOW 2.5 - 3.5 FOR PROSTHETIC HEART VALVE REPLACEMENT 2.5 - 3.5 RECURRENT THROMBOSIS Performed By: #### U AMIC #### [facility] [address] [place] [address] Dr. Donis Mancini PT Coag (PPP) [Time] 9.8 s Normal 9.0-11.6 [facility] Comment on above: Performed By: #### U AMIC #### [facility] [address] [place] [address] Dr. Donis Mancini PTTon 08-07-2022 aPTT Coag (Bld) [Time] 28.5 s Normal 22.3-36.2 [facility] Comment on above: Performed By: #### U AMIC #### [facility] [address] [place] [address] Dr. Donis Mancini UA (CLEAN/CATCH) PROGRAMS ASSISTANT/MICRO I F IND.on 08-07-2022 Bilirubin Ql (U) Negative Normal NEGATIVE [facility] Comment on above: Performed By: #### U AMIC #### [facility] [address] [place] [address] Dr. Donis Mancini Clarity (U) CLEAR Normal CLEAR [facility] Comment on above: Performed By: #### U AMIC #### [facility] [address] [place] [address] Dr. Donis Mancini Color (U) LT. YELLOW Normal YELLOW [facility] Comment on above: Performed By: #### U AMIC #### [facility] [address] [place] [address] Dr. Donis Mancini Glucose Ql (U) Negative Normal NEGATIVE [facility] Comment on above: Performed By: #### U AMIC #### [facility] [address] [place] [address] Dr. Donis Mancini Hemoglobin Ql (U) Negative Normal NEGATIVE [facility] Comment on above: Performed By: #### U AMIC #### [facility] [address] [place] [address] Dr. Donis Mancini Ketones Ql (U) Negative Normal NEGATIVE [facility] Comment on above: Performed By: #### U AMIC #### [facility] [address] [place] [address] Dr. Donis Mancini LEUKOCYTES Negative Normal NEGATIVE [facility] Comment on above: Performed By: #### U AMIC #### [facility] [address] [place] [address] Dr. Donis Mancini Nitrite Ql (U) Negative Normal NEGATIVE [facility] Comment on above: Performed By: #### U AMIC #### [facility] [address] [place] [address] Dr. Donis Mancini pH (U) 7.0 [pH] Normal 5-9 [facility] Comment on above: Performed By: #### U AMIC #### [facility] [address] [place] [address] Dr. Donis Mancini SPEC GRAVITY <=1.005 Abnormal 1.005-<=1.02 5 [facility] Comment on above: Performed By: #### U AMIC #### [facility] [address] [address] [address] Donis Mancini UA PROTEIN Negative Normal NEGATIVE/ TRACE [facility] Comment on above: Performed By: #### U AMIC #### [facility] [address] [address] [address] Donis Mancini UR MICRO IND NOT INDICATED Normal [facility] Comment on above: Performed By: #### U AMIC #### [facility] [address] [address] [address] Donis Mancini Urobilinogen Qn (U) 0.2 {Sarah'U}/dL Normal 0.2 - 1. 0 [facility] Comment on above: Performed By: #### U AMIC #### [facility] [address] [address] [address] Donis Mancini URIC ACID SERUMon 08-07-2022 Urate [Mass/Vol] 3.8 mg/dL Normal 2.6-6.0 [facility] Comment on above: Performed By: #### C MP, URIC, LDH ####[facility] [address] [address]Dr. Donis Mancini URINE T PROTEIN CREAT RATIOo n 08-07-2022 UR TOTAL PROTEIN <6.0 Normal <=12.0 [facility] Comment on above: Performed By: #### C T/NGNA #### [facility] [address] [address] [address] Donis Mancini URINE CREAT 13.45 mg/dL Critically low 20.00-300.00 [facility] Comment on above: Performed By: #### C T/NGNA #### [facility] [address] [address] [address] Donis Mancini US PREG BIOPHY W [...] COCO STERN Date: 2022-08-01 08:31 Normal [facility] CHLAMYDIA/GONOCOCCUS INESSA (SW AB/URINE/PAPon 07-31-2022 Chlamydia trachomatis, INESSA Negative Normal Negative [facility] Comment on above: Performed By: #### C T/NGNA #### [facility] [address] [address] [address] Donis Mancini Neisseria gonorrhoeae, INESSA Negative Normal Negative [facility] Comment on above: Performed By: #### C T/NGNA #### [facility] [address] [place] [address] Dr. Donis Mancini VAGINITIS/VAGINOSIS DNA PROB Domenic 07-31-2022 Simeon species Negative Normal Negative [facility] Comment on above: Performed By: #### V AGINT ####[facility] [address] [address]Dr. Donis Mancini Gardnerella vaginalis Negative Normal Negative [facility] Comment on above: Performed By: #### V AGINT ####[facility] [address] [address]Dr. Donis Mancini Trichomonas vaginalis Negative Normal Negative [facility] Comment on above: Performed By: #### V AGINT ####[facility] [address] [address]Dr. Donis Mancini GROUP B STREP CULTUREon S. agalactiae Ag Ql (Unsp spec) Culture Observations: NEGATIVE FOR GROUP B STREPTOCOCCUS. Normal [facility] Comment on above: Performed By: #### G BSCX #### [facility] [address] [place] [address] Dr. Donis Mancini US PREG BIOPHY W [...] COCO STERN Date: 2022-07-25 09:41 Normal [facility] US PREG GROWTHon 07-11-2022 US PREG [...] ESTEFANY BENNETT Date: 2022-07-11 19:28 Normal [facility] Covid-19 PCR (CVDTB)on 06-26 SARS-CoV-2 (COVID-19) RNA INESSA+probe Ql (Unsp spec) Not detected Normal NOT DETECTED [facility] Comment on above: Result Comment: When [...] for this test is supported by the [employer] of Health and Human Service's declaration that [...] used). Performed By: #### C T/NGNA #### [facility] [address] [place] [address] Dr. Donis Mancini GTT 3 HR PREGon 06-03-2022 Glucose [Mass/Vol] 94 mg/dL Normal 74-106 [facility] Comment on above: Performed By: #### U AMIC #### [facility] [address] [place] [address] Dr. Donis Mancini Glucose [Mass/Vol] 147 mg/dL Normal [facility] Comment on above: Performed By: #### U AMIC #### [facility] [address] [place] [address] Dr. Donis Mancini Glucose [Mass/Vol] 159 mg/dL Normal [facility] Comment on above: Performed By: #### U AMIC #### [facility] [address] [place] [address] Dr. Donis Mancini Glucose [Mass/Vol] 151 mg/dL Normal [facility] Comment on above: Performed By: #### U AMIC #### [facility] [address] [place] [address] Dr. Donis Mancini GLUCOSE - 1HRon 05-21-2022 Glucose [Mass/Vol] 141 mg/dL Critically high 74-106 [facility] Comment on above: Performed By: #### U AMIC #### [facility] [address] [place] [address] Dr. Donis Mancini HEMOGRAM AND PLATELon 2021 Hematocrit (Bld) [Volume fraction] 39.1 % Normal 36.0-48.0 [facility] Comment on above: Performed By: #### U AMIC #### [facility] [address] [address] [address] Donis Mancini Hemoglobin (Bld) [Mass/Vol] 13.1 g/dL Normal 12.0-16.0 [facility] Comment on above: Performed By: #### U AMIC #### [facility] [address] [address] [address] Donis Mancini MCH (RBC) [Entitic mass] 32.3 pg Normal 26.7-34.0 [facility] Comment on above: Performed By: #### U AMIC #### [facility] [address] [address] [address] Donis Mancini MCHC (RBC) [Mass/Vol] 33.5 g/dL Normal 29.9-35.2 [facility] Comment on above: Performed By: #### U AMIC #### [facility] [address] [place] [address] Dr. Donis Mancini MCV (RBC) [Entitic vol] 96.5 fL Normal 81.0-99.0 [facility] Comment on above: Performed By: #### U AMIC #### [facility] [address] [address] [address] Donis Mancini PLT 220 103/ul Normal 150-450 [facility] Comment on above: Performed By: #### U AMIC #### [facility] [address] [address] [address] Donis Mancini RBC 4.05 106/ul Critically low 4.20-5.40 [facility] Comment on above: Performed By: #### U AMIC #### [facility] [address] [address] [address] Donis Mancini WBC 12.8 103/ul Critically high 4.0-11.0 [facility] Comment on above: Performed By: #### U AMIC #### [facility] [address] [place] [address] Dr. Donis Mancini US PREG BIOPHYSICAL NO [...] ESTEFANY BENNETT Date: 2022-05-11 06:25 Normal [facility] CULTURE URINEon 05-10-2022 CULTURE URINE Culture Observations: MODERATE GROWTH OF MIXED GENITAL RAMBO. NO POTENTIAL PATHOGENS SEEN. Normal [facility] Comment on above: Performed By: #### U RCX #### [facility] [address] [address] [address] Donis Mancini UA RANDOM W/MICROSCOPICon BACTERIA LARGE Abnormal NONE SEEN [facility] Comment on above: Performed By: #### U AMIC ####[facility] [address] [address]DrGene Mancini Bilirubin Ql (U) Negative Normal NEGATIVE [facility] Comment on above: Performed By: #### U AMIC ####[facility] [address] [address]DrGene Mancini CAST NONE SEEN Normal NONE SEEN [facility] Comment on above: Performed By: #### U AMIC ####[facility] [address] [address]Dr. Donis Mancini Clarity (U) CLEAR Normal CLEAR [facility] Comment on above: Performed By: #### U AMIC ####[facility] [address] [id number] Mancini Color (U) YELLOW Normal YELLOW [facility] Comment on above: Performed By: #### U AMIC ####[facility] [address] [address]DrGene Mancini Crystals LM Nom (Urine sed) NONE SEEN Normal NONE SEEN [facility] Comment on above: Performed By: #### U AMIC ####[facility] [address] [address]DrGene Mancini Epithelial cells LM Ql (Urine sed) MODERATE Abnormal NONE SEEN /RARE [facility] Comment on above: Performed By: #### U AMIC ####[facility] [address] [place], [place] [address]Dr. Donis Mancini Glucose Ql (U) 250 mg/dl Abnormal NEGATIVE [facility] Comment on above: Performed By: #### U AMIC ####[facility] [address] [place], [place] [address]Dr. Donis Mancini Hemoglobin Ql (U) TRACE-INTACT Abnormal NEGATIVE [facility] Comment on above: Performed By: #### U AMIC ####[facility] [address] [place], [place] [address]Dr. Donis Mancini Ketones Ql (U) Negative Normal NEGATIVE [facility] Comment on above: Performed By: #### U AMIC ####[facility] [address] [place], [place] [address]Dr. Donis Mancini LEUKOCYTES LARGE Abnormal NEGATIVE [facility] Comment on above: Performed By: #### U AMIC ####[facility] [address] [place], [place] [address]Dr. Donis Mancini MUCOUS NONE SEEN Normal NONE SEEN [facility] Comment on above: Performed By: #### U AMIC ####[facility] [address] [place], [place] [address]Dr. Donis Mancini Nitrite Ql (U) Negative Normal NEGATIVE [facility] Comment on above: Performed By: #### U AMIC ####[facility] [address] [place], [place] [address]Dr. Donis Mancini pH (U) 6.0 [pH] Normal 5-9 [facility] Comment on above: Performed By: #### U AMIC ####[facility] [address] [place], [place] [address]Dr. Donis Mancini RBC 2-5 Abnormal 0-2 [facility] Comment on above: Performed By: #### U AMIC ####[facility] [address] [place], [place] [address]Dr. Donis Mancini SPEC GRAVITY <=1.005 Abnormal 1.005-<=1.02 5 [facility] Comment on above: Performed By: #### U AMIC ####[facility] [address] [place], [place] [address]Dr. Donis Mancini UA PROTEIN Negative Normal NEGATIVE/ TRACE [facility] Comment on above: Performed By: #### U AMIC ####[facility] [address] [place], [place] [address]Dr. Donis Mancini Urobilinogen Qn (U) 0.2 {Sarah'U}/dL Normal 0.2 - 1. 0 [facility] Comment on above: Performed By: #### U AMIC ####[facility] [address] [place], [place] [address]Dr. Donis Mancini WBC 10-20 Abnormal NONE SEEN [facility] Comment on above: Performed By: #### U AMIC ####[facility] [address] [place], [place] [address]Dr. Donis Mancini CULTURE URINEon 04-27-2022 CULTURE URINE Culture Observations: LIGHT GROWTH OF MIXED GENITAL RAMBO. NO POTENTIAL PATHOGENS SEEN. Normal [facility] Comment on above: Performed By: #### U RCX ####[facility] [address] [place], [place] [address]Dr. Donis Mancini UA (CLEAN/CATCH) PROGRAMS ASSISTANT/MICRO I F IND.on 04-27-2022 Bilirubin Ql (U) Negative Normal NEGATIVE [facility] Comment on above: Performed By: #### U ACSWENDY UMICRO ####[facility] [address] [place], [place] [address]Dr. Donis Mancini Clarity (U) CLEAR Normal CLEAR [facility] Comment on above: Performed By: #### U ACSWENDY UMICRO ####[facility] [address] [place], [place] [address]Dr. Donis Mancini Color (U) LT. YELLOW Normal YELLOW [facility] Comment on above: Performed By: #### U ACSIND UMICRO ####[facility] [address] [place], [place] [address]Dr. Donis Mancini Glucose Ql (U) Negative Normal NEGATIVE [facility] Comment on above: Performed By: #### U ACSIND, UMICRO ####[facility] [address] [address]Dr. Donis Mancini Hemoglobin Ql (U) Negative Normal NEGATIVE [facility] Comment on above: Performed By: #### U ACSIND, UMICRO ####[facility] [address] [address]Dr. Donis Mancini Ketones Ql (U) Negative Normal NEGATIVE [facility] Comment on above: Performed By: #### U ACSIND, UMICRO ####[facility] [address] [address]Dr. Donis Mancini LEUKOCYTES SMALL Abnormal NEGATIVE [facility] Comment on above: Performed By: #### U ACSIND, UMICRO ####[facility] [address] [address]Dr. Donis Mancini Nitrite Ql (U) Negative Normal NEGATIVE [facility] Comment on above: Performed By: #### U ACSIND, UMICRO ####[facility] [address] [place], [place] [address]Dr. Donis Mancini pH (U) 7.0 [pH] Normal 5-9 [facility] Comment on above: Performed By: #### U ACSIND, UMICRO ####[facility] [address] [place], [place] [address]Dr. Donis Mancini SPEC GRAVITY 1.015 Normal 1.005-<=1.02 5 [facility] Comment on above: Performed By: #### U ACSIND, UMICRO ####[facility] [address] [place] [address]Dr. Donis Mancini UA PROTEIN Negative Normal NEGATIVE/ TRACE [facility] Comment on above: Performed By: #### U ACSIND, UMICRO ####[facility] [address] [place] [address]Dr. Donis Mancini UR MICRO IND INDICATED Normal [facility] Comment on above: Performed By: #### U ACSIND, UMICRO ####[facility] [address] [place] [address]Dr. Donis Mancini Urobilinogen Qn (U) 0.2 {Sarah'U}/dL Normal 0.2 - 1. 0 [facility] Comment on above: Performed By: #### U ACSWENDY, UMICRO ####[facility] [address] [place] [address]Dr. Donis Mancini URINE MICROSCOPIC ONLYon BACTERIA MODERATE Abnormal NONE SEEN [facility] Comment on above: Performed By: #### U ACSWENDY, UMICRO ####[facility] [address] [place] [address]Dr. Donsi Mancini Bacteria identified Cx Nom (U) INDICATED Normal [facility] Comment on above: Performed By: #### U ACSWENDY UMICRO ####[facility] [address] [place] [address]Dr. Donis Mancini CAST NONE SEEN Normal NONE SEEN [facility] Comment on above: Performed By: #### U ACSWENDY UMICRO ####[facility] [address] [place] [address]Dr. Donis Mancini Crystals LM Nom (Urine sed) NONE SEEN Normal NONE SEEN [facility] Comment on above: Performed By: #### U ACSWENDY UMICRO ####[facility] [address] [place] [address]Dr. Donis Mancini Epithelial cells LM Ql (Urine sed) MODERATE Abnormal NONE SEEN /RARE [facility] Comment on above: Performed By: #### U ACSWENDY UMICRO ####[facility] [address] [place] [address]Dr. Donis Mancini MUCOUS NONE SEEN Normal NONE SEEN [facility] Comment on above: Performed By: #### U ACSWENDY UMICRO ####[facility] [address] [place], [place] [address]Dr. Donis Mancini RBC NONE SEEN Abnormal 0-2 [facility] Comment on above: Performed By: #### U ACSWENDY UMICRO ####[facility] [address] [place] [address]Bs. Donis Mancini WBC 2-5 Abnormal NONE SEEN [facility] Comment on above: Performed By: #### U DONNA DAMON ####[facility] [address] [place], [place] [address]Qx. Donis Mancini US KIDNEYSon 04-27-2022 US KIDNEYS [...] ANDREAS AN Date: 2022-04-27 17:48 Normal [facility] CULTURE URINEon 04-16-2022 CULTURE URINE Isolate [...] Trimethoprim/Sulfame thoxazole <=20 S F Normal [facility] Comment on above: Performed By: #### U RCX #### [facility] [address] [place], [place] [address] Dr. Donis Mancini US PREG ANATOMY SINGLEon US PREG ANATOMY SINGLE EXAMINATION: US P REG ANATOMY SINGLE HISTORY: anatomy study COMPARISON: No [...] ESTEFANY BENNETT Date: 2022-04-12 22:22 Normal [facility] UA RANDOM W/MICROSCOPICon BACTERIA SMALL Abnormal NONE SEEN [facility] Comment on above: Performed By: #### U AMIC #### [facility] [address] [place] [id number] Donis Mancini Bilirubin Ql (U) Negative Normal NEGATIVE [facility] Comment on above: Performed By: #### U AMIC #### [facility] [address] [place], [place] [address] Dr. Donis Mancini CAST NONE SEEN Normal NONE SEEN [facility] Comment on above: Performed By: #### U AMIC #### [facility] [address] [place] [address] [address] Donis Mancini Clarity (U) CLEAR Normal CLEAR [facility] Comment on above: Performed By: #### U AMIC #### [facility] [address] [place] [address] [address] Donis Mancini Color (U) LT. YELLOW Normal YELLOW [facility] Comment on above: Performed By: #### U AMIC #### [facility] [address] [place] [address] [address] Donis Mancini Crystals LM Nom (Urine sed) NONE SEEN Normal NONE SEEN [facility] Comment on above: Performed By: #### U AMIC #### [facility] [address] [place] [address] Dr. Donis Mancini Epithelial cells LM Ql (Urine sed) FEW Abnormal NONE SEEN /RARE [facility] Comment on above: Performed By: #### U AMIC #### [facility] [address] [place] [address] [address] Donis Mancini Glucose Ql (U) Negative Normal NEGATIVE [facility] Comment on above: Performed By: #### U AMIC #### [facility] [address] [place] [address] [address] Donis Mancini Hemoglobin Ql (U) Negative Normal NEGATIVE [facility] Comment on above: Performed By: #### U AMIC #### [facility] [address] [place] [address] [address] Donis Mancini Ketones Ql (U) Negative Normal NEGATIVE [facility] Comment on above: Performed By: #### U AMIC #### [facility] [address] [place] [address] [address] Donis Mancini LEUKOCYTES LARGE Abnormal NEGATIVE [facility] Comment on above: Performed By: #### U AMIC #### [facility] [address] [place] [address] Dr. Donis Mancini MUCOUS NONE SEEN Normal NONE SEEN [facility] Comment on above: Performed By: #### U AMIC #### [facility] [address] [place] [address] Dr. Donis Mancini Nitrite Ql (U) Negative Normal NEGATIVE [facility] Comment on above: Performed By: #### U AMIC #### [facility] [address] [place] [address] [address] Donis Mancini pH (U) 5.5 [pH] Normal 5-9 [facility] Comment on above: Performed By: #### U AMIC #### [facility] [address] [place] [address] [address] Donis Mancini RBC 0-2 Normal 0-2 [facility] Comment on above: Performed By: #### U AMIC #### [facility] [address] [place] [address] [address] Donis Mancini SPEC GRAVITY <=1.005 Abnormal 1.005-<=1.02 5 [facility] Comment on above: Performed By: #### U AMIC #### [facility] [address] [place] [address] Dr. Donis Mancini UA PROTEIN Negative Normal NEGATIVE/ TRACE [facility] Comment on above: Performed By: #### U AMIC #### [facility] [address] [place] [address] [address] Donis Mancini Urobilinogen Qn (U) 0.2 {Sarah'U}/dL Normal 0.2 - 1. 0 [facility] Comment on above: Performed By: #### U AMIC #### [facility] [address] [place] [address] [address] Donis Mancini WBC 5-10 Abnormal NONE SEEN [facility] Comment on above: Performed By: #### U AMIC #### [facility] [address] [place] [address] Dr. Donis Mancini HEP B SURFACE ANTIGEN SCREEN on 01-23-2022 HBsAg Screen Negative Normal Negative [facility] Comment on above: Performed By: #### U AMIC #### [facility] [address] [place] [address] Dr. Donis Mancini HEPATITIS C VIRUS AB W/ REFL EX QUANTon 01-23-2022 HCV AB 0.1 s/co ratio Normal 0.0-0.[address] [facility] Comment on above: Performed By: #### H CVPCRR ####[facility] [address] [place] [address]Dr. Donis Mancini Interpretation: Comment Normal [facility] Comment on above: Result Comment: Nega tive Not infected with HCV, unless recent infection is suspected or other evidence exists to indicate HCV infection. Performed By: #### H CVPCRR ####[facility] [address] [place] [id number] Mancini HIV 1 AND 2 WITH REFLEXon HIV Screen 4th Generation wRfx Non-Reactive Normal Non Reactive [facility] Comment on above: Result Comment: HIV Negative HIV-1/HIV-2 antibodies and HIV-1 p24 antigen were NOT detected. There is no laboratory evidence of HIV infection. Performed By: #### H IV12 ####[facility] [address] [place] [address]DrGene Mancini RPR QUANTon 01-23-2022 Rapid Plasma Reagin, Quant Non-Reactive Normal NonRea<1:1 [facility] Comment on above: Result Comment: Plea se Note: This test does not meet current guidelines for screening and diagnosis of syphilis. This test is intended for following treatment response in patients being treated for syphilis infection. To screen for syphilis infection, a reflex cascade that includes both RPR and a treponema-specific assay should be utilized, such as Treponema pallidum (Syphilis) Screening [place] (696023) or Rapid Plasma Reagin (RPR) Test With Reflex to Quantitative RPR and Confirmatory Treponema pallidum Antibodies (253503). Performed By: #### R PRQ ####[facility] [address] [place] [id number]. Donis Mancini RUBELLA AB IGGon 01-23-2022 Rubella Antibodies, IgG 1.60 index Normal Immune >0.99 [facility] Comment on above: Result Comment: Non- immune <0.90 Equivocal 0.90 - 0.99 Immune >0.99 Performed By: #### U AMIC #### [facility] [address] [place] [address] [address] Donis Mancini CBC AUTO DIFFon 01-22-2022 BASO # 0.1 103/ul Normal 0.0-0.1 [facility] Comment on above: Performed By: #### U AMIC #### [facility] [address] [place] [address] [address] Donis Mancini Basophils/100 WBC (Bld) 0.5 % Normal 0.2-2.0 [facility] Comment on above: Performed By: #### U AMIC #### [facility] [address] [place] [address] Dr. Donis Mancini EO # 0.6 103/ul Normal 0.0-0.7 [facility] Comment on above: Performed By: #### U AMIC #### [facility] [address] [place] [address] Dr. Donis Mancini Eosinophils/100 WBC (Bld) 5.1 % Normal 0.9-7.0 [facility] Comment on above: Performed By: #### U AMIC #### [facility] [address] [place] [address] Dr. Donis Mancini Erythrocyte distribution width (RBC) [Ratio] 12.0 % Normal 11.0-15.0 [facility] Comment on above: Performed By: #### U AMIC #### [facility] [address] [place] [address] Dr. Donis Mancini Hematocrit (Bld) [Volume fraction] 45.8 % Normal 36.0-48.0 [facility] Comment on above: Performed By: #### U AMIC #### [facility] [address] [place] [address] Dr. Donis Mancini Hemoglobin (Bld) [Mass/Vol] 15.3 g/dL Normal 12.0-16.0 [facility] Comment on above: Performed By: #### U AMIC #### [facility] [address] [place] [address] Dr. Donis Mancini IG # 0.03 10e3/ul Normal 0.00-0.03 [facility] Comment on above: Performed By: #### U AMIC #### [facility] [address] [place] [address] [address] Donis Mancini IG % 0.3 % Normal 0.0-0.5 [facility] Comment on above: Performed By: #### U AMIC #### [facility] [address] [place] [address] [address] Donis Macnini LYMPH # 1.7 103/ul Normal 1.2-3.8 [facility] Comment on above: Performed By: #### U AMIC #### [facility] [address] [place] [address] [address] Donis Mancini Lymphocytes/100 WBC (Bld) 15.9 % Critically low 20.5-60.0 [facility] Comment on above: Performed By: #### U AMIC #### [facility] [address] [place] [address] [address] Donis Mancini MANUAL DIFF REQ NO Normal [facility] Comment on above: Performed By: #### U AMIC #### [facility] [address] [place] [address] [address] Donis Mancini MCH (RBC) [Entitic mass] 31.5 pg Normal 26.7-34.0 [facility] Comment on above: Performed By: #### U AMIC #### [facility] [address] [place] [address] Dr. Donis Mancini MCHC (RBC) [Mass/Vol] 33.4 g/dL Normal 29.9-35.2 [facility] Comment on above: Performed By: #### U AMIC #### [facility] [address] [place] [address] [address] Donis Mancini MCV (RBC) [Entitic vol] 94.2 fL Normal 81.0-99.0 [facility] Comment on above: Performed By: #### U AMIC #### [facility] [address] [place] [address] Dr. Donis Mancini MONO # 0.6 103/ul Normal 0.3-0.8 [facility] Comment on above: Performed By: #### U AMIC #### [facility] [address] [place] [address] [address] Donis Mancini Monocytes/100 WBC (Bld) 5.8 % Normal 1.7-12.0 [facility] Comment on above: Performed By: #### U AMIC #### [facility] [address] [place] [address] [address] Donis Mancini NEUT # 7.8 103/ul Critically high 1.4-6.5 [facility] Comment on above: Performed By: #### U AMIC #### [facility] [address] [place] [address] [address] Donis Mancini Neutrophils/100 WBC (Bld) 72.4 % Normal 43.0-75.0 [facility] Comment on above: Performed By: #### U AMIC #### [facility] [address] [place] [address] Dr. Donis Mancini Platelet mean volume (Bld) [Entitic vol] 9.9 fL Normal 9.5-13.5 [facility] Comment on above: Performed By: #### U AMIC #### [facility] [address] [place] [address] [address] Donis Mancini PLT 281 103/ul Normal 150-450 [facility] Comment on above: Performed By: #### U AMIC #### [facility] [address] [place] [address] Dr. Donis Mancini RBC 4.86 106/ul Normal 4.20-5.40 [facility] Comment on above: Performed By: #### U AMIC #### [facility] [address] [place] [address] [address] Donis Mancini WBC 10.8 103/ul Normal 4.0-11.0 [facility] Comment on above: Performed By: #### U AMIC #### [facility] [address] [place] [address] [address] Donis Mancini CULTURE URINEon 01-22-2022 CULTURE URINE Culture Observations: LIGHT GROWTH OF MIXED GENITAL RAMBO. NO POTENTIAL PATHOGENS SEEN. Normal [facility] Comment on above: Performed By: #### U RCX #### [facility] [address] [place] [address] [address] Donis Mancini GLYCOHEMOGLOBIN A1Con 2021 ADA RECOMMENDATION SEE BELOW Normal [facility] Comment on above: Result Comment: ADA RECOMMENDED LIMIT 4.0 - 6.0 ADA THERAPEUTIC TARGET < 7.0 ACTION SUGGESTED > 7.0 Performed By: #### A 1C ####[facility] [address] [place] [id number]. Donis Mancini Glucose [Mass/Vol] 100 mg/dL Normal [facility] Comment on above: Performed By: #### A 1C ####[facility] [address] [place] [id number]. Donis Mancini HbA1c (Bld) [Mass fraction] 5.1 % Normal 4.5-6.2 [facility] Comment on above: Performed By: #### A 1C ####[facility] [address] [place] [id number]. Donis Mancini SEAN BOX TEST PT SEND OUTo n 01-22-2022 SENT TO REF LAB 01/22/2022 Normal [facility] Comment on above: Performed By: #### N BOX ####[facility] [address] [place] [id number]. Donis Mancini TYPE AND SCREENon 01-22-2022 TYPE AND SCREEN Negative Normal [facility] Comment on above: Performed By: #### T NS #### [facility] [address] [place] [address] [address] Donis Mancini US PREG TVon 01-17-2022 [...] by: COCO STERN Date: 2022-01-17 09:34 Normal [facility] Provider Letteron 04-06-2021 Provider Letter April 06, 2021 Dear Vimal, We have been trying to reach you with no success. It is important that you return our call regarding your appointment upon receiving this letter. Also, at the time of your call, please provide us with your current information. Thank you for your prompt attention to this matter. Sincerely, [employer] [place] [address] Normal [facility] Ambulatory Clinical Summaryo n 03-10-2021 Ambulatory Clinical Summary {[id number]}CD:[id number] Normal [facility] Ambulatory Clinical Summaryo n 03-05-2021 Ambulatory Clinical Summary {[id number]}CD:[id number] Normal [facility] Gynecology Phone Visit- Tele healthon 03-05-2021 Gynecology [...] only communication with the patient located at [address] [place] [address] [place] [id number], with no one else. 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 CODING DATE: 12/18/2020 FINAL [facility] DSC STATUS: Home (Routine DC) PAYOR: [place] ADMIT DX: REASON FOR VISIT DX: U07.1 [...] Galvan CphT Date Saved: 12/18/2020 12:44 pm [facility] Physician Orderon 12-16-2020 Physician Order [id number] #[id number]:127 [facility] Rapid COVID Antigen ([facility])on 12-16-2020 Rapid COV Int NEG Ctl Pass Normal Fis her [facility] Comment on above: Performed By: #### 2 [id number] #### [facility] [address] [place] [address] Rapid COV Int POS Ctl Pass Normal [facility] Comment on above: Performed By: #### 2 [id number] #### [facility] [address] [place] [address] SARS-CoV-2 (COVID-19) RNA INESSA+probe Ql (Unsp spec) Detected Abnormal Not Detected [facility] Comment on above: Result Comment: Left a message for callback. 12/16/2020 11:42:47 EDT Results faxed to infection control. The REVENTIVE? System for Rapid Detection of SARS-CoV-2 is [...] or revoked sooner. Performed By: #### 2 [id number] #### [facility] [address] [place] [address] Employed in Healthcare Unknown Normal [facility] Comment on above: Performed By: #### 2 [id number] #### [facility] [address] [place] [address] First Test Unknown Normal [facility] Comment on above: Performed By: #### 2 [id number] #### [facility] [address] [place] [address] Hospitalized? NO Normal [facility] Comment on above: Performed By: #### 2 [id number] #### [facility] [address] [place] [address] ICU NO Normal [facility] Comment on above: Performed By: #### 2 [id number] #### [facility] [address] [place] [address] ? Unknown Normal [facility] Comment on above: Performed By: #### 2 [id number] #### [facility] [address] [place] [address] Resides in a Congregate Care Setting Unknown Normal [facility] Comment on above: Performed By: #### 2 [id number] #### [facility] [address] [place] [address] Symptomatic as defined by CDC YES Normal [facility] Comment on above: Performed By: #### 2 [id number] #### [facility] [address] [place] [address] Ambulatory Clinical Summaryo n 11-25-2020 Ambulatory Clinical Summary {[id number]}CD:[id number] [facility] Vital Signs Date Time Vital Sign Value Performing Clinician Facility 03-14-2025 11:36-0400 Body mass index (BMI) [Ratio] 29.23 kg/m2 Jose Michael DO Work Phone: [facility] 03-14-2025 11:36-0400 Body weight 74.84 kg Jose Michael DO Work Phone: [facility] 03-14-2025 11:36-0400 Diastolic blood pressure 76 mm[Hg] Jose Michael DO Work Phone: [facility] 03-14-2025 11:36-0400 Systolic blood pressure 112 mm[Hg] Jose Michael DO Work Phone: [facility] 02-20-2025 16:08-0400 Body mass index (BMI) [Ratio] 28.83 kg/m2 Rossana BISWAS Work Phone: [facility] 02-20-2025 16:08-0400 Body weight 73.82 kg Rossana Rachel PA Work Phone: [facility] 02-20-2025 16:08-0400 Diastolic blood pressure 82 mm[Hg] Rossana Leach PA Work Phone: [facility] 02-20-2025 16:08-0400 Systolic blood pressure 110 mm[Hg] Rossana Leach PA Work Phone: [facility] 01-14-2025 15:42-0400 Body mass index (BMI) [Ratio] 27.3 kg/m2 Jose Michael DO Work Phone: [facility] 01-14-2025 15:42-0400 Body weight 69.91 kg Jose Michael DO Work Phone: [facility] 01-14-2025 15:42-0400 Diastolic blood pressure 70 mm[Hg] Jose Michael DO Work Phone: [facility] 01-14-2025 15:42-0400 Systolic blood pressure 120 mm[Hg] Jose Michael DO Work Phone: [facility] 08-20-2024 10:55-0500 Body mass index (BMI) [Ratio] 25.93 kg/m2 Rossana Scottey PA Work Phone: [facility] 08-20-2024 10:55-0500 Body weight 66.41 kg Rossana Scottey PA Work Phone: [facility] 08-20-2024 10:55-0500 Diastolic blood pressure 70 mm[Hg] Rossana Scottey PA Work Phone: [facility] 08-20-2024 10:55-0500 Systolic blood pressure 120 mm[Hg] Rossana Leach PA Work Phone: [facility] 08-06-2024 09:38-0500 Body mass index (BMI) [Ratio] 25.47 kg/m2 Jose Michael DO Work Phone: [facility] 08-06-2024 09:38-0500 Body weight 65.23 kg Jose Michael DO Work Phone: [facility] 08-06-2024 09:38-0500 Diastolic blood pressure 70 mm[Hg] Jose Michael DO Work Phone: [facility] 08-06-2024 09:38-0500 Systolic blood pressure 120 mm[Hg] Jose Michael DO Work Phone: [facility] 06-29-2024 09:12-0400 Body mass index (BMI) [Ratio] 24.58 kg/m2 Nom Nurse [facility] 06-29-2024 09:12-0400 Body weight 62.94 kg Nom Nurse [facility] 06-29-2024 09:12-0400 Diastolic blood pressure 72 mm[Hg] Noms Nurse [facility] 06-29-2024 09:12-0400 Systolic blood pressure 122 mm[Hg] Nom Nurse [facility] 12-26-2022 13:45-0400 Body height 160.02 cm Jennifer Huston Other [employer] Other 12-26-2022 13:45-0400 Body mass index (BMI) [Ratio] 27.45 kg/m2 Jennifer Huston Other [employer] Other 12-26-2022 13:45-0400 Body temperature 97 [degF] Jennifer Huston Other [employer] Other 12-26-2022 13:45-0400 Body weight 70.31 kg Jennifer Huston Other [employer] Other 12-26-2022 13:45-0400 Diastolic blood pressure 89 mm[Hg] Jennifer Huston Other [employer] Other 12-26-2022 13:45-0400 Respiratory rate 18 /min Jennifer Huston Other [employer] Other 12-26-2022 13:45-0400 SaO2% (BldA) [Mass fraction] 100 % Jennifer Huston Other [employer] Other 12-26-2022 13:45-0400 Systolic blood pressure 135 mm[Hg] Jennifer Huston Other [employer] Other Encounters Encounter Date Encounter Type Care Provider Facility Start: 03-14-2025 End: 03-14-2025 Bamboo flowsheet Jose Michael DO Work Phone: [facility] Start: 03-14-2025 End: 03-14-2025 Bamboo flowsheet Jose Michael DO Work Phone: [facility] Start: 03-14-2025 End: 03-14-2025 ambulatory JOSE MICHAEL Not Available Start: 03-14-2025 End: 03-14-2025 flow sheet Jose Michael DO Work Phone: [facility] Comment on above: Second trimester pre gnancy ([facility]); 21 weeks gestation of ([facility]) Start: 03-08-2025 End: 03-08-2025 Clinisync Result Encounter Jose Michael DO Work Phone: [facility] External Department Unsolicited Start: 03-08-2025 End: 03-08-2025 Clinisync Result Encounter Jose Michael DO Work Phone: [facility] External [facility] Unsolicited Start: 02-20-2025 End: 02-20-2025 Patient encounter procedure Rossana BISWAS Work Phone: [facility] Start: 02-20-2025 End: 02-20-2025 flow sheet Rossana BISWAS Work Phone: [facility] Comment on above: Screening, , [...] OB Start: 01-14-2025 End: 01-14-2025 Bamboo flowsheet Joes Michael DO Work Phone: [facility] [...] up visit related to original px Rossana Rachel TRUE Work Phone: [facility] Comment on [...] Start: 08-10-2024 End: 08-10-2024 ambulatory PHYSICIAN NO [facility] Work Phone: Start: 08-10-2024 End: 08-10-2024 Departed Referred PHYSICIAN NO [facility] [facility] Start: 08-06-2024 [...] 07-21-2024 End: 07-21-2024 Clinisync Result Encounter Jose Rodriguez DO Work Phone: [facility] External Department Unsolicited Start: 06-29-2024 End: 06-29-2024 Office outpatient visit 5 minutes [facility] Michael Nurse [facility] Comment on above: GA: 7w1d Start: 06-29-2024 End: 06-29-2024 ambulatory JOSE RODRIGUEZ Not Available Start: 12-26-2022 Office outpatient ne w 20 minutes Jennifer Huston [facility] Start: 12-26-2022 End: 12-26-2022 ambulatory Jennifer Huston Other [facility] [employer] Other Start: 12-26-2022 End: 12-26-2022 Patient encounter procedure STICK PULLER-C Jennifer Huston Work Phone: [facility] Work Phone: [...] End: 07-29-[address] JOSE RODRIGUEZ . Facility:H1 Start: 07-24-2022 End: 07-24-[address] JOSE [...] Start: 05-10-2022 End: 05-10-[address] DOCTOR RAMIREZ Facility:H1 Start: 05-03-[address] JOSE RODRIGUEZ . Facili ty:H1 Start: 04-27-2022 End: 04-27-[address] JOSE RODRIGUEZ . Facility:H1 Start: 04-12-2022 End: 04-12-[address] JOSE RODRIGUEZ . Facility:[facility]1 Start: 04-12-2022 End: 04-13-[address] JOSE RODRIGUEZ . Facility: Start: 03-26-2022 End: 03-27-[address] JOSE RODRIGUEZ . Facility:H1 Start: 01-22-2022 End: 01-23-[address] JOSE RODRIGUEZ . Facility:H1 Start: 01-14-2022 End: 01-15-[address] JOSE RODRIGUEZ . Facility: Procedures Date Procedure Procedure Detail Performing Clinician Start: 03-14-2025 Urnls dip stick/tabl et rgnt non-auto w/o micrscp Jose Hendrickso DO Work Phone: Start: 03-08-2025 US OB ANATOMY Jose Aleida io DO Work Phone: Start: 03-08-2025 US OB CERVICAL LENGTH C orey Michael DO Work Phone: Start: 02-20-2025 RECURRENT VAGINITIS (HTRX) Rossana BISWAS [...] 07-21-2024 ALL CBC WITH AUTO DIFF Jose Michael DO Work Phone: Start: 07-21-2024 [facility] DRUG SCREEN RAPI D (URINE) Jose [facility] DO Work Phone: Start: 06-29-2024 End: 06-29-2024 Urnls dip stick/tablet rgnt non-auto w/o micrscp Jose Michael DO Work Phone: Start: 12-26-2022 Plain X-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 hand STICK PULLER-C Jennifer Huston Work Phone: Start: 11-02-2022 Cytp cerv/vag auto t hin layer prep mnl screen Jose [facility] DO Work Phone: Start: 08-10-2022 Delivery of [...] Influenza vaccination Influenz a Vaccine (Season Ended) [facility] Start: 04-11-2025 End: 04-11-2025 Patient encounter procedure 04/11/2025 3:30 PM EDT Routine [facility] [address] [place] [id number] Rossana Leach PA [address] [place] [address] [facility] Start: 03-14-2025 End: 03-14-2025 Patient encounter procedure 03/14/2025 10:50 AM EDT Routine [facility] [address] [place] [id number] Jose Rodriguez, [address] [place] [address] [facility] Start: 02-20-2025 End: 02-20-2025 Patient encounter procedure [facility] Comment on above: Arrived Start: 02-20-2025 End: 04-22-2025 Alpha fetoprotein, maternal Alpha fetoprotein, maternal Lab Routine 18 weeks gestation of Expected: 02/20/2025 (Approximate), Expires: 04/22/2025 [facility] Comment on above: Expected: 02/20/2025 (Approximate), Expires: 04/22/2025 Start: 02-20-2025 End: 05-23-2025 US for US OB 14+ weeks anatomy scan Imaging Routine Screening, , for anatomic survey Expected: 02/20/2025, Expires: 05/23/2025 [facility] Comment on above: Expected: 02/20/2025 , Expires: 05/23/2025 Start: 01-14-2025 End: 01-14-2025 Patient encounter procedure [facility] Comment on above: Arrived Start: 12-14-2024 End: 12-14-2024 ambulatory 12/14/2024 9:00 AM EDT Initial [facility] [address] [place] [address] [facility] Start: 12-14-2024 End: 12-14-2024 Professional / ancillary services management 12/14/2024 8:30 AM EDT Ancillary Procedure [facility] [address] [place] [address] [facility] Start: 08-20-2024 End: 08-20-2024 Patient encounter procedure 08/20/2024 10:20 AM EST Office Visit [facility] [address] [place] [address] Rossana Leach PA [address] [place] [address] [facility] Start: 08-06-2024 End: 08-06-2024 Patient encounter procedure 08/06/2024 9:10 AM EST Routine [facility] [address] [place] [place] [address] Jose Rodriguez DO [address] [place] [address] [facility] Start: 06-29-2024 End: 06-29-2025 [...] [facility] Comment on above: Ordered: 06/29/2024 Bacteria identified in Urine by Culture Urine culture Microbiology Routine Urinary frequency Ordered: 02/20/2025 [facility] Comment on above: Ordered: 02/20/2025 CBC W Auto Different ial panel - Blood CBC and differential Lab Routine Missed menses , unspecified gestational age Ordered: 06/29/2024 [facility] Comment on above: Ordered: 06/29/2024 CHLAMYDIA TRACHOMATI S (GENITO/STI) CHLAMYDIA TRACHOMATIS (GENITO/STI) Lab Routine STD exposure Ordered: 02/20/2025 [facility] Comment on above: Ordered: 02/20/2025 Cytology Cervical or vaginal smear or scraping study Pap Smear Pathology and Cytology Routine Well woman exam with routine gynecological exam Ordered: 02/20/2025 [facility] Comment on above: Ordered: 02/20/2025 Hemoglobin A1c/Hemoglobin.total [...] [facility] Comment on above: Ordered: 06/29/2024 Neisseria gonorrhoea e DNA [Presence] in Unspecified specimen by INESSA with probe detection Neisseria gonorrhea DNA probe, direct Lab Routine STD exposure Ordered: 02/20/2025 [facility] Comment on above: Ordered: 02/20/2025 Reagin Ab [Presence] in Serum by RPR RPR Lab Routine Missed menses , unspecified gestational age Ordered: 06/29/2024 [facility] Comment on above: Ordered: 06/29/2024 Rubella antibody, IgG Rubella an tibody, IgG Lab Routine Missed menses , unspecified gestational age Ordered: 06/29/2024 [facility] Comment on above: Ordered: 06/29/2024 SURESWAB(R) ADVANCED VAGINITIS PLUS, TMA SURESWAB(R) ADVANCED VAGINITIS PLUS, TMA Pathology and Cytology Routine STD exposure Ordered: 02/20/2025 [facility] Work Phone: Comment on above: Ordered: 02/20/2025 Immunizations Immunization Date Immunization Notes Care Provider Ryne abrams 08-28-2002 influenza virus vacc ine, unspecified formulation Noms Nurse [facility] Payers Date Payer Category Payer Medicaid [employer] [place] [id number] 2023-Present [address] [place] [address] [id number] 2023 Medicaid (Managed Care) [facility] MEDICAID [id number] 2021 Blue Cross Blue Shield [id number] 2021 Unknown BCBS BCBS [id number] 2021-Present [phone] [address] [place] [address] [id number]. [id number] 2001 Unknown [id number] 2.16.840.1.625868.3.579.2. 593 2001 Unknown [id number] 2.16.840.1.795927.3.579.2. 593 2001 Unknown [id number] 2.16.840.1.731282.3.579.2. 593 2001 Unknown [id number] 2.16.840.1.114874.3.579.2. 593 2001 Unknown [id number] 2.16.840.1.263673.3.579.2. 593 2001 Unknown [id number] 2.16.840.1.875421.3.579.2. 593 2001 Unknown [id number] 2.16.840.1.125518.3.579.2. 593 2001 Unknown [id number] 2.16.840.1.472865.3.579.2. 593 2001 Unknown [id number] 2.16.840.1.550959.3.579.2. 593 2001 Unknown [id number] 2.16.840.1.634999.3.579.2. 593 2001 Unknown [id number] 2.16.840.1.466128.3.579.2. 593 2001 Unknown [id number] 2.16.840.1.975610.3.579.2. 593 2001 Unknown [id number] 2.16.840.1.553120.3.579.2. 593 2001 Unknown [id number] 2.16.840.1.775816.3.579.2. 593 2001 Unknown [id number] 2.16.840.1.278675.3.579.2. 593 2001 Unknown [id number] 2.16.840.1.433954.3.579.2. 593 2001 Unknown [id number] 2.16.840.1.100888.3.579.2. 593 2001 Unknown [id number] 2.16.840.1.617482.3.579.2. 593 2001 Unknown [id number] 2.16.840.1.805152.3.579.2. 593 2001 Unknown [id number] 2.16.840.1.222214.3.579.2. 593 2001 Unknown [id number] 2.16.840.1.097111.3.579.2. 593 2001 Unknown [id number] 2.16.840.1.320696.3.579.2. 1259 2001 Unknown [id number] 2.16.840.1.726420.3.579.2. 1259 2001 Unknown [id number] 2.16.840.1.535153.3.579.2. 125 2001 Unknown [id number] 2.16.840.1.014148.3.579.2. 1259 2001 Unknown [id number] 2.16.840.1.449700.3.579.2. 1259 2001 Unknown [id number] 2.16.840.1.093966.3.579.2. 1259 2001 Unknown [id number] 2.16.840.1.053566.3.579.2. 1259 2001 Unknown [id number] 2.16.840.1.082609.3.579.2. 1259 1959 Self-pay 1959 Unknown [id number] 1959 Unknown [id number] Unknown [id number] 2.16.840.1.095842.3.579.2. 593 Unknown [id number] 2.16.840.1.647416.3.579.2. 531 Social History Date Type Detail Facility Start: 10-13-2023 End: 06-29-2024 Sex Assigned At [facility] [employer] Other Start: 2000 Sex Assigned At Female F [facility] Start: 10-13-2023 Tobacco smoking stat [facility] Never smoked tobacco [facility] Start: 06-29-2024 End: 03-14-2025 Alcoholic beverage intake Current drinker of alcohol (finding) [facility] Start: 10-13-2023 End: 06-29-2024 History of Social function [facility] Start: 05-24-2024 [facility] Start: 2001 Sex assigned at Not on file [facility] Tobacco smoking stat [facility] Unknown if ever smoked [facility] Work Phone: Start: 08-11-2024 Sex Female (finding) [facility] Clinical Notes 12-26-2022 to 03-14-2025 Diamond Borja LPN - 03/14/2025 10:50 AM TRUE Navarro - 02/20/2025 3:40 PM Larissa Borja LPN - 01/14/2025 3:40 PM TRUE Navarro - 08/20/2024 10:20 AM EST Note Date & Type Note Facility 03-14-2025 History of Presen t illness Narrative Reason [...] Medical History: Diagnosis Date Anemia Gestational diabetes ([facility]-HCC) History of blood transfusion Lead poisoning Miscarriage ([facility]) Nonsmoker Post depression HISTORY PAST MEDICAL HISTORY SOCIAL HISTORY Past Medical History: Diagnosis Date Anemia Gestational diabetes (HHS-HCC) History of blood transfusion Lead poisoning Miscarriage (HHS-HCC) Nonsmoker Post depression /anxiety Social History Tobacco Use Smoking status: [...] nursing note reviewed. Exam conducted with a supervisor post wave present. Vitals: Estimated body mass index is 29.23 kg/m as calculated from the following: Height as of 01/06/23: 5' 3 . Weight as of this encounter: 165 lb. BP: 112/76 Patient's last menstrual period was 10/15/2024 (exact date). ASSESSMENT & PLAN ICD-10-CM 1. Second trimester ([facility]) Z34.92 POCT urinalysis dipstick manually resulted 2. 21 weeks gestation of ([facility]) Z3A.21 Patient presents today for a routine obstetrics appointment. Patient is currently 21w3d with a Estimated Date of Delivery: 07/22/25. Patient has no complaints at this time and will return to clinic in 4 weeks. Documented by Diamond Borja LPN on behalf of: Jose Rodriguez DO documented in this encounter [facility] 02-20-2025 History of Presen t illness Narrative [...] nursing note reviewed. Exam conducted with a supervisor post wave present. Vitals: Estimated body mass index is [...] of: TRUE Argueta documented in this encounter [facility] 01-14-2025 History of Presen t illness Narrative [...] nursing note reviewed. Exam conducted with a supervisor post wave present. Vitals: Estimated body mass index is [...] or undercooked meat, and stay away from [facility]. Patient has been consulted regarding any further [...] Jose Rodriguez DO documented in this encounter [facility] 08-20-2024 History of Presen t illness Narrative [...] having a D&C Hysteroscopy performed at [facility] with Dr. Rodriguez. Pathology results was reviewed with the patient in great detail and all restrictions have been lifted. Follow Up: Patient is to return to the office for annual exam unless needed otherwise. Documented by TRUE Argueta on behalf of: TRUE Argueta documented in this encounter [facility] 08-06-2024 History of Presen t illness Narrative [...] nursing note reviewed. Exam conducted with a supervisor post wave present. Vitals: Estimated body mass index is [...] vaginal bleeding. Patient to discuss date with Muck Operator prior to leaving. Patient is able to obtain work note for the week and if longer is needed she will reach out to office. Documented by Diamond Borja LPN on behalf of: Jose Rodriguez DO documented in this encounter [facility] 06-29-2024 History of Presen t illness Narrative [...] or undercooked meat, and stay away from [facility]. Patient has also been advised [...] by: Whitney Peacock documented in this encounter [facility] 12-26-2022 Evaluation note Encounter Date Diagnosis Assessment [...] appointment to be seen soon as possible [employer] Other Evaluation noteNo assessment information available [facility] Work Phone: Evaluation note* Diagnosis Missed menses , unspecified gestational age Encounter for supervision of normal first in first trimester Nausea Nausea alone 7 weeks gestation of documented in this encounter [facility] note* Diagnosis Miscarriage Unspecified spontaneous without mention of complication documented in this encounter [facility] note* Diagnosis Postoperative examination Follow-up examination, following unspecified surgery documented in this encounter [facility] note* Diagnosis 13 weeks gestation of Second trimester state, incidental documented [facility] this encounter [facility] Diagnosis Screening, , for anatomic survey Encounter for anatomic survey Well woman exam with routine gynecological exam Routine gynecological examination STD exposure Second trimester state, incidental 18 weeks gestation of Urinary frequency documented in this encounter [facility]* Diagnosis Second trimester ([facility]HS-HCC) state, incidental 21 weeks gestation of (HHS-HCC) documented in this encounter [facility] Summary Purpose Family History No Family History Records FoundNo Family History Records FoundNo Family History Records FoundNo Family History Records Found Advance Directives Advance Directive Response Recorded Date/ Time Advance Directives No December 27 6:21am Additional Source Comments INFORMATION SOURCE (unrecogn ized section and content) DATE CREATED AUTHOR 09/24/2021 [facility] DATE CREATED AUTHOR AUTHOR'S ORGANIZ ATION 12/07/2022 [facility] DATE CREATED AUTHOR AUTHOR'S ORGANIZ ATION 08/15/2024 [facility] DATE CREATED AUTHOR AUTHOR'S ORGANIZ ATION 03/17/2025 [facility] EPIC REASON FOR VISIT (unrecogniz ed section and content) Reason Comments Initial Visit Reason Comments Miscarriage Reason Comments Post-op Visit Reason Comments Routine Visit Care Teams (unrecognized sec tion and content) Team Status: Inactive Member Role Status Dates Jennifer Huston , VLAD-C Attending Provider Active Investments Manager Relationship Specialty Start Date End Date Vaishali Zapata MD [address] [place] [address] PCP - General Family Medicine 02/04/23 Investments Manager Relationship Specialty Start Date End Date Vaishali Zapata MD [address] [place] [address] PCP - General Family Medicine 02/04/23 Team Status: Active Member Role Status Dates PHYSICIAN NO FAMILY Primary Care Provider Active Team Status: Inactive Member Role Status Dates PHYSICIAN NO FAMILY Primary Care Provider Active Start: August 10, 2024 End: August 10, 2024 Jose Rodriguez DO Attending Provider Active Start : August 10, 2024 End: August 10, 2024 Investments Manager Relationship Specialty Start Date End Date Unallocated, Arjun Vo MD [address] [place] [address] PCP - General Family Medicine 08/03/24 Investments Manager Relationship Specialty Start Date End Date Unallocated, Arjun Vo MD [facility] [address] [facility] [place] [address] PCP - General Family Medicine 08/03/24 Investments Manager Relationship Specialty Start Date End Date Unallocated, Arjun Vo MD [facility] [address] [facility] [address] PCP - General Family Medicine 08/03/24 Investments Manager Relationship Specialty Start Date End Date Unallocated, Arjun Vo MD [facility] [address] [facility] [place] [address] PCP - General Family [facility] 08/03/24 Investments Manager Relationship Specialty Start Date End Date Unallocated, Arjun Vo MD [facility] [address] PCP - General Family Medicine 08/03/24 Investments Manager Relationship Specialty Start Date End Date Unallocated, Arjun Vo MD [facility] [address] PCP - General Family Medicine 08/03/24 Goals [...] BE BASED ON THE PRIMARY CLINICAL RECORDS. [facility]. provides no warranty or guarantee of the accuracy or completeness of information in this document.
== END 2025-03-23 10:47 | disposition home or self-care (01) ==
LOC: US 10:48
PROVIDERS: PCP Nurse Practitioner Family; Visit Provider Obstetrics & Gynecology
DX: Z36.2 Encounter for other antenatal screening follow-up (principal)
CPT/HCPCS: 76815

== ENCOUNTER 2025-04-27 09:02 | Outpatient (OUT) | payer BC, OTHER, SELFPAY ==
--- OUTSIDE RECORDS SUMMARY | 2024-06-05 04:30 | XMS_ITS ---
Author Organization [facility] [place] Address [address] [place] [address] Care Team Providers Care Research Agricultural Engineer Name Role Phone Jennifer Butts Primary Care [...] 06/05/2024 Encounters Encounter Location Date Provider Diagnosis [facility] [address] [place] [address] 06/05/2024 Jennifer Butts Z33.1 and Wellness examination [...] Amber PIZANO MDOB: [birth year] (24 yo F)Acc No.[id number]:06/05/2024 New Patient Patient: Amber MADERA Provider: Lashawn Butts ([facility]), COMMUNICATION CENTER COORDINATOR :2000 A ge:24 Y S ex:Female Date:06/05/2024 Address:[address] [place] [address] Check In:08:08 AM ESTCheck O ut:08:44 AM [...] year old 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
--- OUTSIDE RECORDS SUMMARY | 2025-04-25 14:50 | XMS_ITS | Encounter Summary ---
Author Organization [facility] Address [address] [place] [address] Care Team Providers Care Circular Gang Saw Operator Name Role Phone Unallocated, Noms Provider Primary Care Provi krissy Reason for Visit * Reason Comments Routine Visit Encounter Details Date Type Department Care Team (Late st Contact Info) Description 04/25/2025 2:50 PM EDT Office Visit ARJUN PANG [address] [facility] [place] [address] Rossana Ramos PA [address] [facility] [address] [place], [facility] Second trimester ([facility]); 27 weeks gestation of ([facility]); induced hypertension, antepartum ([facility]) Social History Tobacco Use Types Packs/Day Years [...] History of blood transfusion Lead poisoning Miscarriage ([facility]) Nonsmoker Post depression HISTORY PAST MEDICAL [...] ASSESSMENT & PLAN ICD-10-CM 1. Second trimester ([facility]) Z34.92 2. 27 weeks gestation of ([facility]) Z3A.27 Patient presents for BP check. BP [...] Care Team (Late st Contact Info) Description 04/30/2025 10:50 AM EDT Routine [facility] [address] [place] [address] Rossana Ramos PA [address] [facility] [place] [address] Scheduled Orders Name Type Priority Associated Diagnoses Orde r Schedule Creatinine Lab Routine induced hypertension, antepartum ([facility]) Expected: 04/25/2025 (Approximate), Expires: 04/25/2026 Protein, urine, [...] Routine 04/25/2025 3:12 PM EDT Second trimester ([facility]) documented in this encounter Results * POCT [...] this encounter Visit Diagnoses Diagnosis Second trimester ([facility]) state, incidental 27 weeks gestation of ([facility]) induced hypertension, antepartum ([facility]) Transient hypertension of , antepartum documented in this encounter Care Teams Circular Gang Saw Operator Relationship Specialty Start Date End Date Unallocated, Noms Provider, [place] [address] PCP - General Family Medicine 08/03/24 documented as of this encounter
--- OUTSIDE RECORDS SUMMARY | 2025-04-27 09:06 | XMS_ITS | Encounter Summary ---
Author Organization [facility] Address [address] [place] [address] Care Team Providers Care Auger Machine Offbearer Name Role Phone Unallocated, Noms Provider Primary Care Provi krissy Encounter Details Date Type Department Care Team (Late st Contact Info) Description 08/10/2024 Abstract ARJUN PANG [address] [facility] [place] [address] Jose Rodriguez DO [address] [facility] [address] [place], [facility]11 Social History Tobacco Use Types Packs/Day Years [...] Info) Description 04/30/2025 10:50 AM EDT Routine ARJUN PANG [address] [facility] [place] [address] Rossana Ramos PA [address] [facility] [address] [place], [facility]11 documented as of this encounter Visit Diagnoses Not on filedocumented in this encounter Care Teams Auger Machine Offbearer Relationship Specialty Start Date End Date Unallocated, Noms Provider, [place] [address] PCP - General Family Medicine 08/03/24 documented as of this encounter
--- OUTSIDE RECORDS SUMMARY | 2025-04-27 09:06 | XMS_ITS | Encounter Summary ---
Author Organization [facility] Address [address] [place] [address] Care Team Providers Care Traffic Control Signaler Name Role Phone Unallocated, Noms Provider Primary Care Provi krissy Encounter Details Date Type Department Care Team (Late st Contact Info) Description 03/11/2025 Results Follow-Up ARJUN [place] [facility] [address] [facility] [place] [address] Glenna Butler LPN [address] [place] [address] Social History Tobacco Use Types Packs/Day [...] on file documented as of this encounter Miscellaneous Notes * Result Encounter Note - Glenna Butler LPN - 03/11/2025 11:52 AM EDT Detailed voicemail left for pt. Order put with flowsheet to give to pt at appointment this documented in this encounter Plan of Treatment Upcoming Encounters Date Type Department Care Team (Late st Contact Info) Description 04/30/2025 10:50 AM EDT Routine [facility] [place] [facility] [address] [facility] [place] [address] Rossana Ramos PA [address] [facility] [place] [address] documented as of this encounter Visit Diagnoses Not on filedocumented in this encounter Care Teams Traffic Control Signaler Relationship Specialty Start Date End Date Unallocated, Noms MD Gilda [address] [place] [address] PCP - General Family Medicine 08/03/24 documented as of this encounter
--- OUTSIDE RECORDS SUMMARY | 2025-04-27 09:06 | XMS_ITS | Encounter Summary ---
Author Organization [facility] Address [address] [place] [address] Care Team Providers Care Fondant Machine Operator Name Role Phone Unallocated, Noms Provider Primary Care Provi krissy Encounter Details Date Type Department Care Team (Late Contact Info) Description 04/25/2025 Bamboo flowsheet ARJUN PANG [address] [facility] [place] [address] Rossana Ramos PA [address] [place], [facility]11 Social History Tobacco Use Types [...] Department Care Team (Late Contact Info) Description 04/30/2025 10:50 AM EDT Routine NOMMay PANG [address] [place] [address] Rossana Ramos PA [address] [place] [address] [place] [address] documented as of this encounter Visit Diagnoses Not on filedocumented in this encounter Care Teams Fondant Machine Operator Relationship Specialty Start Date End Date Unallocated, Noms Provider, [address] [place] [address] PCP - General Family Medicine 08/03/24 documented as of this encounter
--- OUTSIDE RECORDS SUMMARY | 2025-04-27 09:06 | XMS_ITS | Encounter Summary ---
Author Organization [facility] Address [address] [place] [address] Care Team Providers Care Geology Faculty Member Name Role Phone Unallocated, Noms Provider Primary Care Provi krissy Encounter Details Date Type Department Care Team (Late st Contact Info) Description 08/10/2024 Clinisync Result Encounter [facility] External Department Unsolicited Mackenzie Rodriguez DO [address] [facility] [address] [place]é [place], [facility]11 Social History Tobacco Use Types Packs/Day Years [...] AM EDT Routine [facility] [address] [facility] [place] [address] Rossana Ramos PA [address] [facility] [place] [address] documented as of this encounter Procedures Procedure Name Priority Date/Time Associated Diagnosis Comments US OB TRANSVAGINAL 08/10/2024 8: 44 AM EST documented in this encounter Results * US OB TRANSVAGINAL (08/10/2024 8:44 AM EST) Anatomical Region Laterality Modality Other 08/10/2024 8:44 AM EST Narrative 08/10/2024 8:47 [place] [address] Ultrasound Report Signed Patient: VIMAL PIZANO MR#: [id number] : 2000 Acct:[id number] Age/Sex: 24 / F ADM Date: 08/10/24 Loc: SURGOUT Attending Dr: Mackenzie Rodriguez D.O. Ordering Physician: Mackenzie Rodriguez D.O. Date of Service: 08/10/24 Procedure(s): US OB transvaginal Accession Number(s): [id number] cc: LUIS SEE ; Mackenzie Rodriguez D.O. [place] [id number] Patient Name: VIMAL PIZANO MRN: [id number] date: 2000 Sex: F Assigned Patient Location: [facility] Current Patient Location: [facility] Accession/Order Number: [id number] Exam Date: 08/10/2024 08:10 Report Date: 08/10/2024 [...] 1 day on 06/29/2024.) Electronically authenticated by: ESTEFANY HERRERA Date: 08/10/2024 08:44 Dictated By: Estefany Herrrea M.D. Signed By: 08/10/2447 DD/ 3 TD/TT: Ribbon Lapper Tender: Procedure Note Radiology, Radiologist, MD - 08/10/2024 [place] [address] Ultrasound Report Signed Patient: VIMAL PIZANO MMR#: [id number] : 2000Acct:[id number] Age/Sex: 24 / FADM Date: 08/10/24 Loc: SURGOUT Attending Dr: Mackenzie Rodriguez D.O. Ordering Physician: Mackenzie Rodriguez D.O. Date of Service: 08/10/24 Procedure(s): US OB transvaginal Accession Number(s): [id number] cc: LUIS SEE ; Mackenzie Rodriguez D.O. [facility] [place] [id number] Patient Name: VIMAL PIZANO MRN: [id number] date: 2000 Sex: F Assigned Patient Location: [facility] Current Patient Location: [facility] Accession/Order Number: [id number] Exam Date: 08/10/2024 08:10 Report Date: 08/10/2024 [...] 1 day on 06/29/2024.) Electronically authenticated by: ESTEFANY HERRERA Date: 08/10/2024 08:44 Dictated By: Estefany Herrera M.D. Signed By:08/10/2447 DD/ TD/TT: Ribbon Lapper Tender: us Mackenzie Michael DO [facility] Final Result documented in this encounter Visit Diagnoses Not on filedocumented in this encounter Care Teams Geology Faculty Member Relationship Specialty Start Date End Date Unallocated, Noms Provider, [address] [place] [address] PCP - General Family Medicine 08/03/24 documented as of this encounter
--- OUTSIDE RECORDS SUMMARY | 2025-04-27 09:06 | XMS_ITS | Encounter Summary ---
Author Organization [facility] Address [address] [place] [address] Care Team Providers Care Station Agent Name Role Phone Unallocated, Noms Provider Primary Care Provi krissy Encounter Details Date Type Department Care Team (Late st Contact Info) Description 08/10/2024 Abstract ARJUN PANG [address] [facility] [address] Jose Rodriguez DO [address] [facility] [address] [place]ué [place], [facility]11 Social History Tobacco Use Types Packs/Day Years [...] 10:50 AM EDT Routine ARJUN PANG [address] [facility] [address] Rossana Ramos PA [address] [facility] [address] [place], [facility]11 documented as of this encounter Visit Diagnoses Not on filedocumented in this encounter Care Teams Station Agent Relationship Specialty Start Date End Date Unallocated, Noms Provider, [place] [address] PCP - General Family Medicine 08/03/24 documented as of this encounter
--- OUTSIDE RECORDS SUMMARY | 2025-04-27 09:06 | XMS_ITS | Clinical Summary ---
Author Organization [facility] Address [id number] [address] [place] [address] Care Team Providers Care Fitting Room Supervisor Name Role Phone Unavailable Primary Care Provider [...] Orientation Not on file Plan of Treatment Upcoming Encounters Date Type Department Care Team (Late st Contact Info) Description 06/04/2025 1:00 PM EDT Appointment [facility] - Ultrasound [address] [place] [address] Jose Rodriguez, DO [address] [facility] [address] [place] [place] [address] Health Maintenance Due Date Last Done Comments Depression Screening 2013 Tobacco Screening 2013 Adult BMI Screening 2019 DTaP,Tdap and Td Vaccines (1 - Tdap) 2020 Pap Smear 2022 Influenza Vaccine 05/27/2025 Medical Devices Not on file
--- OUTSIDE RECORDS SUMMARY | 2025-04-27 09:06 | XMS_ITS | Encounter Summary ---
Author Organization [facility] Address [address] [place] [address] Care Team Providers Care Fur Blower Operator Name Role Phone Vaishali Zapata MD Primary Care Provider Bipin cheng Unallocated, Noms Provider Primary Care Provi krissy Encounter Details Date Type Department Care Team (Late Contact Info) Description 08/02/2024 Abstract ARJUN PANG [address] [facility] [place] [address] Jose Rodriguez DO [address] [facility] [address] [place]ué [place], [facility]11 Social History Tobacco Use Types Packs/Day [...] 10:50 AM EDT Routine [facility] P[facility] [address] [facility] [place] [address] Rossana Ramos PA [address] [facility] [place] [address] documented as of this encounter Visit Diagnoses Not on filedocumented in this encounter Care Teams Fur Blower Operator Relationship Specialty Start Date End Date Vaishali Zapata MD [address] [place] [address] PCP - General Family Medicine 02/04/23 08/02/24 Unallocated, Noms Provider, [address] [place] [address] PCP - General Family Medicine 08/03/24 documented as of this encounter
--- OUTSIDE RECORDS SUMMARY | 2025-04-27 09:06 | XMS_ITS | Encounter Summary ---
Author Organization [facility] Address [address] [place] [address] Care Team Providers Care Inside Account Representative Name Role Phone Vaishali Chaidez MD Primary Care Provider Bipin cheng Unallocated, Noms Provider Primary Care Provi krissy Encounter Details Date Type Department Care Team (Late st Contact Info) Description 06/29/2024 Clinisync Result Encounter [facility] External Department Unsolicited Mackenzie Rodriguez DO [address] [place], [facility]11 Social History Tobacco Use Types [...] AM EDT Routine [facility] [place] [address] [place] [address] Rossana Ramos PA [address] [facility] [address] [place], [place] [address] documented as of this encounter Procedures Procedure Name Priority Date/Time Associated Diagnosis Comments US OB TRANSVAGINAL 06/29/2024 9 :11 AM EDT documented in this encounter Results * US OB TRANSVAGINAL (06/29/2024 9:11 AM EDT) Anatomical Region Laterality Modality Other 06/29/2024 9:11 AM EDT Narrative 06/29/2024 9:14 [place] [address] Ultrasound Report Signed Patient: Vimal Pizano MR#: [id number] : 2000 Acct:[id number] Age/Sex: 24 / F ADM Date: 06/29/24 Loc: [facility] Attending Dr: Mackenzie Rodriguez D.O. Ordering Physician: Mackenzie Rodriguez D.O. Date of Service: 06/29/24 Procedure(s): US OB transvaginal Accession Number(s): [id number] cc: Mackenzie Rodriguez D.O.; VAISHALI CHAIDEZ [place] [address] Patient Name: VIMAL PIZANO MRN: [id number] date: 2000 Sex: F Assigned Patient Location: [facility] Current Patient Location: [facility] Accession/Order Number: [id number] Exam Date: 06/29/2024 08:37 Report Date: 06/29/2024 [...] M.D. Signed By: 06/29/24913 DD/ 0 TD/TT: Health Safety And Environment Manager: Procedure Note Radiology, Radiologist, MD - 06/29/2024 [place] [address] Ultrasound Report Signed Patient: Vimal Pizano MMR#: [id number] : 2000Acct:[id number] Age/Sex: 24 / FADM Date: 06/29/24 Loc: [facility] Attending Dr: Mackenzie Rodriguez D.O. Ordering Physician: Mackenzie Rodriguez D.O. Date of Service: 06/29/24 Procedure(s): US OB transvaginal Accession Number(s): [id number] cc: Mackenzie Rodriguez D.O.; VAISHALI CHAIDEZ [place] [address] Patient Name: VIMAL PIZANO MRN: [id number] date: 2000 Sex: F Assigned Patient Location: [facility] Current Patient Location: [facility] Accession/Order Number: [id number] Exam Date: 06/29/2024 08:37 Report Date: 06/29/2024 09:11 At the request of: AMCKENZIE RODRIGUEZ Procedure: US OB transvaginal EXAMINATION: US [...] Herrera M.D. Signed By:06/29/24913 DD/ 0 TD/TT: Health Safety And Environment Manager: us Mackenzie Michael DO [facility] Final Result documented in this encounter Visit Diagnoses Not on filedocumented in this encounter Care Teams Inside Account Representative Relationship Specialty Start Date End Date Vaishali Chaidez MD [address] [place] [address] PCP - General Family Medicine 02/04/23 08/02/24 Unallocated, Noms Provider, [address] [place] [address] PCP - General Family Medicine 08/03/24 documented as of this encounter
--- OUTSIDE RECORDS SUMMARY | 2025-04-27 09:06 | XMS_ITS | Encounter Summary ---
Author Organization [facility] Address [address] [place] [address] Care Team Providers Care Regulatory Submissions Associate Name Role Phone Vaishali Zapata MD Primary Care Provider Bipin cheng Unallocated, Noms Provider Primary Care Provi krissy Encounter Details Date Type Department Care Team (Late st Contact Info) Description 06/29/2024 Abstract ARJUN PANG [address] [facility] [place] [address] Jose Rodriguez DO [address] [facility] [address]ué [place], [facility]11 Social History Tobacco Use Types Packs/Day [...] EDT Routine ARJUN PANG [address] [facility] [place] [address] Rossana Ramos PA [address] [facility] [place] [address] documented as of this encounter Visit Diagnoses Not on filedocumented in this encounter Care Teams Regulatory Submissions Associate Relationship Specialty Start Date End Date Vaishali Zapata MD [address] [place] [address] PCP - General Family Medicine 02/04/23 08/02/24 Unallocated, Noms Provider, [address] [place] [address] PCP - General Family Medicine 08/03/24 documented as of this encounter
--- OUTSIDE RECORDS SUMMARY | 2025-04-27 09:06 | XMS_ITS | Encounter Summary ---
Author Organization [facility] Address [address] [place] [address] Care Team Providers Care Disability Liaison Officer Name Role Phone Vaishali Zapata MD Primary Care Provider Bipin cheng Unallocated, Noms Provider Primary Care Provi krissy Encounter Details Date Type Department Care Team (Late st Contact Info) Description 06/28/2024 Abstract ARJUN PANG [address] [facility] [place] [address] Jose Rodriguez DO [address] [facility] [address]ousé [place], [facility] Social History Tobacco Use Types Packs/Day Years [...] AM EDT Routine ARJUN PANG [address] [facility] [place] [address] Rossana Ramos PA [address] [facility] [place] [address] documented as of this encounter Visit Diagnoses Not on filedocumented in this encounter Care Teams Disability Liaison Officer Relationship Specialty Start Date End Date Vaishali Zapata MD [address] [place] [address] PCP - General Family Medicine 02/04/23 08/02/24 Unallocated, Noms Provider, [address] [place] [address] PCP - General Family Medicine 08/03/24 documented as of this encounter
--- OUTSIDE RECORDS SUMMARY | 2025-04-27 09:06 | XMS_ITS | Encounter Summary ---
Author Organization [facility] Address [address] [place] [address] Care Team Providers Care Software Specialist Name Role Phone Unallocated, Noms Provider Primary Care Provi krissy Encounter Details Date Type Department Care Team (Late st Contact Info) Description 08/10/2024 Abstract ARJUN PANG [address] [facility] [place] [address] Jose Rodriguez DO [address] [facility] [address]ué [place], [facility]11 Social History Tobacco Use Types Packs/Day [...] PANG [address] [facility] [address] Rossana Ramos PA [address] [facility] [address] [place], [facility]11 documented as of this encounter Visit Diagnoses Not on filedocumented in this encounter Care Teams Software Specialist Relationship Specialty Start Date End Date Unallocated, Noms Provider, [place] [address] PCP - General Family Medicine 08/03/24 documented as of this encounter
--- OUTSIDE RECORDS SUMMARY | 2025-04-27 09:06 | XMS_ITS | Encounter Summary ---
Author Organization [facility] Address [address] [place] [address] Care Team Providers Care Microfilm Mounter Name Role Phone Unallocated, Noms Provider Primary Care Provi krissy Encounter Details Date Type Department Care Team (Late Contact Info) Description 03/28/2025 Abstract [facility] [address] [place] [address] Jose Rodriguez DO [address] [facility] [address] Josué Morataya, [facility] Social History Tobacco Use Types Packs/Day [...] 10:50 AM EDT Routine [facility] [address] [facility] [place] [address] Rossana Ramos PA [address] [place] [address] [place] [address] documented as of this encounter Visit Diagnoses Not on filedocumented in this encounter Care Teams Microfilm Mounter Relationship Specialty Start Date End Date Unallocated, Noms Provider, [address] [place] [address] PCP - General Family Medicine 08/03/24 documented as of this encounter
--- OUTSIDE RECORDS SUMMARY | 2025-04-27 09:07 | XMS_ITS ---
Author Organization [facility] Source Produ ction (ClinicalSummary Clone) Address Unknown Care Team Providers Care Cotton Buyer Name Role Phone Unavailable Primary Care Physician Unavailab le Results * [UNITY] CARRIER SCREEN Performed by: VMTurbo Component Value Range Date Sickle Cell Disease/Beta-Thalassemia/Hemo [...]
--- OUTSIDE RECORDS SUMMARY | 2025-04-27 09:07 | XMS_ITS | Encounter Summary ---
Author Organization [facility] Address [address] [place] [address] Care Team Providers Care Manager Real Estate Name Role Phone Unallocated, Noms Provider Primary Care Provi krissy Encounter Details Date Type Department Care Team (Late st Contact Info) Description 03/06/2025 Orders Only ARJUN PANG [address] [facility] [address] Kavitha Almanza MA Social History Tobacco [...] 10:50 AM EDT Routine [facility] [address] [facility] [place] [address] Rossana Ramos PA [address] [place], [place] [id number] documented as of this encounter Procedures Procedure Name Priority Date/Time Associated Diagnosis Comments PAP SMEAR Routine 02/20/2025 12:00 AM EDT documented in this encounter Results * Pap Smear (02/20/2025 12:00 AM EDT) Swab Cervical swab / Unknown Rossana [facility] ORDERABLES Final Re sult EXTERNAL LAB documented in this encounter Visit Diagnoses Not on filedocumented in this encounter Care Teams Manager Real Estate Relationship Specialty Start Date End Date Unallocated, Noms Provider, [address] [place] [address] PCP - General Family Medicine 08/03/24 documented as of this encounter
--- OUTSIDE RECORDS SUMMARY | 2025-04-27 09:07 | XMS_ITS | Clinical Summary ---
Author Organization [facility] Address [address] [place] [address] Care Team Providers Care Tutorial Laboratory Supervisor Name Role Phone Unallocated, Noms Provider MD [...] morning and 100 mg before bedtime. Active labetalol (Normodyne) 200 MG tabletIndications : induced hypertension, antepartum (HHS-HCC) Take 1 tablet (200 mg) by mouth in the morning and 1 tablet (200 mg) before bedtime. 60 tablet 11 5 04/25/20 26 Active labetalol (Normodyne) 100 MG tabletIndications :Elevated BP without diagnosis of hypertension Take 1 tablet (100 mg) by mouth in the morning and 1 tablet (100 mg) before bedtime. 60 tablet 5 04/25/20 25 Discontinu ed(Ineffec tive) Encounters Date Type Department Care Team Description 04/25/2025 2:50 PM EDT Office Visit [facility] [address] [place] [address] [place] [address] Rossana Ramos PA Second trimester ([facility]); 27 weeks gestation of ([facility]); induced hypertension, antepartum ([facility]) 04/25/2025 Bamboo flowsheet [facility] [address] [place] [address] Rossana Ramos PA 04/11/2025 3:30 PM EDT Routine [facility] [address] [place] [address] Rossana Ramos PA Second trimester ([facility]); 25 weeks gestation of ([facility]); Diabetes mellitus screening; Elevated BP without diagnosis of hypertension 04/11/2025 Bamboo flowsheet [facility] [address] [place] [address] Rossana Ramos PA 03/28/2025 Abstract [facility] [place] [address] Mackenzie Rodriguez, 03/25/2025 Clinisync Result Encounter NOMS External Department Unsolicited Mackenzie Rodriguez, 03/14/2025 10:50 AM EDT Routine [facility] [place] [address] Mackenzie Rodriguez, Second trimester ([facility]); 21 weeks gestation of ([facility]) 03/14/2025 Bamboo flowsheet [facility] [address] [place] [address] Mackenzie Rodriguez, 03/11/2025 [place] [address] Glenna Butler LPN 03/11/2025 [place] [address] Glenna ButlerMARILU 03/08/2025 Clinisync Result Encounter NOMS External Department Unsolicited Mackenzie Rodriguez, DO 03/08/2025 Clinisync Result Encounter NOMS External Department Unsolicited Mackenzie Rodriguez, DO 03/06/2025 Orders Only [facility] [address] [facility] [place] [phone] Kavitha Almanza MA 02/20/2025 3:40 PM EDT Routine [facility] [address] [place] [phone] Rossana Ramos PA Screening, , for anatomic survey ([facility]); Well woman exam with routine gynecological exam; STD exposure; Second trimester ([facility]); 18 weeks gestation of ([facility]); Urinary frequency 02/20/2025 Clinisync Result Encounter NOMS External Department Unsolicited Rossana Ramos PA 02/20/2025 External Result Encounter NOMS External Department Unsolicited Rossana Ramos PA 02/20/2025 Bamboo flowsheet [facility] [address] [facility] [place] [address] Rossana Ramos PA from Last 3 Months Family History Medical [...] Sign Reading Time Taken Comments Blood Pressure 142/100 04/11/2025 3:38 PM EDT Pulse - - Temperature - - Respiratory Rate - - Oxygen Saturation - - Inhaled Oxygen Concentration - - Weight 77.3 kg (170 lb 8 oz) 04/11/2025 3:38 PM EDT Height 160 cm (5' 3 ) 01/06/2023 12:00 PM EDT Body Mass Index 30.2 01/06/2023 12:00 PM EDT Plan of Treatment Upcoming Encounters Date Type Department Care Team (Late st Contact Info) Description 04/30/2025 10:50 AM EDT Routine [facility] [address] [place] [address] Rossana Ramos PA [address] [place] [address] Health Maintenance Due Date Last Done Comments Influenza Vaccine (#1) 2025 08/28/2003, 2002 Procedures Procedure Name Priority Date/Time Associated Diagnosis Comments POCT URINALYSIS DIPSTICK Routine 04/25/2025 3:12 PM EDT Second trimester ([facility]) POCT URINALYSIS DIPSTICK Routine 04/11/2025 3:44 PM EDT Second trimester ([facility]) US OB INCOMPLETE ANATOMY 03/25/2025 8:25 AM EDT POCT URINALYSIS DIPSTICK Routine 03/14/2025 11:39 AM EDT Second trimester ([facility]) US OB CERVICAL LENGTH 03/08/2025 8:36 PM EDT US OB ANATOMY 03/08/2025 8:36 PM EDT RECURRENT VAGINITIS (HTRX) Routine 02/20/2025 4:33 PM EDT URINARY TRACT INFECTION (HTRX) Routine 02/20/2025 4:30 PM EDT POCT URINALYSIS DIPSTICK Routine 02/20/2025 4:18 PM EDT 18 weeks gestation of ([facility]) IGP,APTIMA HPV,AGE GDLN Routine 02/20/2025 3:50 PM EDT PAP SMEAR Routine 02/20/2025 12:00 AM EDT from Last 3 Months Results * POCT urinalysis dipstick manually resulted (04/25/2025 3:12 PM EDT) Only the most recent of4 resultswithin the time period is included. Color, [...] OR DERABLES Final Result * US OB INCOMPLETE ANATOMY (03/25/2025 8:25 AM EDT) Anatomical Region Laterality Modality Other 03/25/2025 8:25 AM EDT Narrative 03/25/2025 8:[place] [address] Ultrasound Report Signed Patient: VIMAL FUNES MR#: [id number] : 2000 Acct:[id number] Age/Sex: 24 / F ADM Date: 03/23/25 Loc: US Attending Dr: Mackenzie Rodriguez D.O. Ordering Physician: Mackenzie Rodriguez D.O. Date of Service: 03/23/25 Procedure(s): US OB incomplete anatomy Accession Number(s): [id number] cc: LUIS SEE ; Mackenzie Rodriguez D.O. The [place] [id number] Patient Name: VIMAL FUNES MRN: [id number] date: 2000 Sex: F Assigned Patient Location: US Current Patient Location: US Accession/Order Number: [id number] Exam Date: 03/25/2025 08:23 Report Date: 03/25/2025 08:25 At the request of: MACKENZIE RODRIGUEZ DO Procedure: US OB incomplete anatomy ULTRASOUND OB INCOMPLETE ANATOMY COMPARISON: 03/08/2025 CLINICAL DATA: Suboptimal visualization of the facial features, spine and extremities. There is a single live intrauterine gestation in transverse presentation, head to the maternal right. The amniotic fluid volume is subjectively normal. The cervix, as visualized appears closed. There is cardiac and somatic activity with heart rate of 158 beats per minutes. Survey of the spine on today's study revealed no abnormalities. The facial features and extremities were still not well visualized due to position. US/US OB incomplete anatomy IMPRESSION: CONTINUED LIMITED VISUALIZATION OF THE EXTREMITIES AND FACIAL FEATURES. Impression dictated by: Meghana Brown M.D. 03/25/2025 8:25 AM Dictation Location: [place] [address] Electronically authenticated by: [id number] Y Date: 03/25/2025 08:25 Dictated By: Meghana Brown M.D. Signed By: 03/25/25826 DD/ 4 TD/TT: Medical Scribe: Procedure Note Radiology, Radiologist, MD - 03/25/2025 The [place] [id number] Ultrasound Report Signed Patient: VIMAL FUNES MMR#: [id number] : 2000Acct:[id number] Age/Sex: 24 / FADM Date: 03/23/25 Loc: US Attending Dr: Mackenzie Rodriguez D.O. Ordering Physician: Mackenzie Rodriguez D.O. Date of Service: 03/23/25 Procedure(s): US OB incomplete anatomy Accession Number(s): [id number] cc: LUIS SEE ; Mackenzie Rodriguez D.O. [place] [id number] Patient Name: VIMAL FUNES MRN: [id number] date: 2000 Sex: F Assigned Patient Location: US Current Patient Location: US Accession/Order Number: [id number] Exam Date: 03/25/2025 08:23 Report Date: 03/25/2025 08:25 At the request of: MACKENZIE RODRIGUEZ DO Procedure: US OB incomplete anatomy ULTRASOUND OB INCOMPLETE ANATOMY COMPARISON: 03/08/2025 CLINICAL DATA: Suboptimal visualization of the facial features, spine and extremities. There is a single live intrauterine gestation in transverse presentation,head to the maternal right. The amniotic fluid volume is subjectively normal.The cervix, as visualized appears closed. There is cardiac and somatic activity with heart rate of 158 beats per minutes. Survey of the spine on today's study revealed no abnormalities. The facial features andextremities were still not well visualized due to position. US/US OB incomplete anatomy IMPRESSION: CONTINUED LIMITED VISUALIZATION OF THE EXTREMITIES AND FACIAL FEATURES. Impression dictated by: Meghana Brown M.D. 03/25/2025 8:25 AM Dictation Location: [place] [address] Electronically authenticated by: [id number] Y Date: 508:25 Dictated By: Meghana Brown M.D. Signed By:03/25/25826 DD/ 4 TD/TT: Medical Scribe: us Mackenzie Rodriguez DO [facility] Final Result * US OB CERVICAL LENGTH (03/08/2025 8:36 PM EDT) Anatomical Region Laterality Modality Other 03/08/2025 8:36 PM EDT Narrative 03/08/2025 8:38 PM EDT [address] [address] Ultrasound Report Signed Patient: VIMAL FUNES MR#: [id number] : 2000 Acct:[id number] Age/Sex: 24 / F ADM Date: 03/08/25 Loc: US Attending Dr: Mackenzie Rodriguez D.O. Ordering Physician: Mackenzie Rodriguez D.O. Date of Service: 03/08/25 Procedure(s): US OB cervical length Accession Number(s): [id number] cc: LUIS SEE ; Mackenzie Rodriguez D.O. [place] [id number] Patient Name: VIMAL FUNES MRN: [id number] date: 2000 Sex: F Assigned Patient Location: US Current Patient Location: US Accession/Order Number: [id number] Exam Date: 03/08/2025 20:31 Report Date: 03/08/2025 20:36 At the request of: MACKENZIE RODRIGUEZ DO Procedure: US OB anatomy Ultrasound [...] Knapp M.D. 03/08/2025 8:36 PM Dictation Location: [facility] Electronically authenticated by: [id number] Y Date: 03/08/2025 20:36 Dictated By: Shivam Knapp D.O. Signed By: 03/08/252037 DD/ 35 TD/TT: Medical Scribe: Procedure Note Radiology, Radiologist, - 03/08/2025 [place] [address] Ultrasound Report Signed Patient: VIMAL FUNES MMR#: [id number] : 2000Acct:[id number] Age/Sex: 24 / FADM Date: 03/08/25 Loc: US Attending Dr: Mackenzie Rodriguez D.O. Ordering Physician: Mackenzie Rodriguez D.O. Date of Service: 03/08/25 Procedure(s): US OB cervical length Accession Number(s): [id number] cc: LUIS SEE ; Mackenzie Rodriguez D.O. The [place] [address] Patient Name: VIMAL FUNES MRN: [id number] date: 2000 Sex: F Assigned Patient Location: US Current Patient Location: US Accession/Order Number: [id number] Exam Date: 03/08/2025 20:31 Report Date: 03/08/2025 20:36 At the request of: MACKENZIE RODRIGUEZ DO Procedure: US OB anatomy Ultrasound assessment of cervical length Cervical length is 4.0 cm. Cervical os is closed. US/US OB cervical length IMPRESSION: Cervical length of 4.0 cm. Ultrasound assessment of anatomy HISTORY: Anatomic survey Fetus in variable presentation. Amniotic fluid subjectively normal.Placenta is in a fundal position. The placental edge is 5.5 cm from the cervicalos. The heart rate 165 bpm. Following anatomy visualized: Lateral ventricles, cerebellum, posterior fossa, nose and lips, orbits,four-chamber heart, right ventricular outflow track and left ventricular outflow track, diaphragm, stomach, kidneys, abdominal cord insertion, bladder, umbilical arteries, 3 vessel cord. There is suboptimal assessment of the spine and extremities. There is some limitations of the nose and lip assessment dueto position. The aspirate age 19 weeks 3 days. Estimateddelivery 07/30/2025. IMPRESSION: Suboptimal assessment of the nose and lips spine andextremities due to position. Remaining anatomy unremarkable. Single live intrauterine gestation at 19 weeks 3 days. Impression dictated by: Shivam Knapp M.D. 03/08/2025 8:36 PM Dictation Location: [place] [address] Electronically authenticated by: [id number] Y Date: 0:36 Dictated By: Shivam Knapp D.O. Signed By:03/08/252037 DD/ 35 TD/TT: Medical Scribe: us Mackenzie Rodriguez DO [facility] Final Result * US OB ANATOMY (03/08/2025 8:36 PM EDT) Anatomical Region Laterality Modality Other 03/08/2025 8:36 PM EDT Narrative 03/08/2025 8:38 [place] [address] Ultrasound Report Signed Patient: VIMAL FUNES MR#: [id number] : 2000 Acct:[id number] Age/Sex: 24 / F ADM Date: 03/08/25 Loc: US Attending Dr: Mackenzie Rodriguez D.O. Ordering Physician: Mackenzie Rodriguez D.O. Date of Service: 03/08/25 Procedure(s): US OB anatomy Accession Number(s): [id number] cc: LUIS SEE ; Mackenzie Rodriguez D.O. [place] [id number] Patient Name: VIMAL FUNES MRN: [id number] date: 2000 Sex: F Assigned Patient Location: US Current Patient Location: US Accession/Order Number: [id number] Exam Date: 03/08/2025 20:31 Report Date: 03/08/2025 20:36 At the request of: MACKENZIE RODRIGUEZ DO Procedure: US OB anatomy Ultrasound [...] Knapp M.D. 03/08/2025 8:36 PM Dictation Location: [facility] Electronically authenticated by: [id number] Y Date: 03/08/2025 20:36 Dictated By: Shivam Knapp D.O. Signed By: 03/08/252037 DD/ 35 TD/TT: Medical Scribe: Procedure Note Radiology, Radiologist, - 03/08/2025 [place] [address] Ultrasound Report Signed Patient: VIMAL FUNES MMR#: [id number] : 2000Acct:[id number] Age/Sex: 24 FADM Date: 03/08/25 Loc: US Attending Dr: Mackenzie Rodriguez D.O. Ordering Physician: Mackenzie Rodriguez D.O. Date of Service: 03/08/25 Procedure(s): US OB anatomy Accession Number(s): [id number] cc: LUIS SEE ; Mackenzie Rodriguez D.O. The [address] [address] Patient Name: VIMAL FUNES MRN: [facility]:[id number] date: 2000 Sex: F Assigned Patient Location: US Current Patient Location: Accession/Order Number: [id number] Exam Date: 03/08/2025 20:31 Report Date: 03/08/2025 20:36 At the request of: MACKENZIE RODRIGUEZ DO Procedure: US OB anatomy Ultrasound assessment of cervical length Cervical length is 4.0 cm. Cervical os is closed. US/US OB anatomy IMPRESSION: Cervical length of 4.0 cm. Ultrasound assessment of anatomy HISTORY: Anatomic survey Fetus in variable presentation. Amniotic fluid subjectively normal.Placenta is in a fundal position. The placental edge is 5.5 cm from the cervicalos. The heart rate 165 bpm. Following anatomy visualized: Lateral ventricles, cerebellum, posterior fossa, nose and lips, orbits,four-chamber heart, right ventricular outflow track and left ventricular outflow track, diaphragm, stomach, kidneys, abdominal cord insertion, bladder, umbilical arteries, 3 vessel cord. There is suboptimal assessment of the spine and extremities. There is some limitations of the nose and lip assessment dueto position. The aspirate age 19 weeks 3 days. Estimateddelivery 07/30/2025. IMPRESSION: Suboptimal assessment of the nose and lips spine andextremities due to position. Remaining anatomy unremarkable. Single live intrauterine gestation at 19 weeks 3 days. Impression dictated by: Shivam Knapp M.D. 03/08/2025 8:36 PM Dictation Location: [facility] Electronically authenticated by: [id number] Y Date: 0:36 Dictated By: Shivam Knapp D.O. Signed By:03/08/252037 DD/ 35 TD/TT: Medical Scribe: Mackenzie Rodriguez DO [facility] Final Result * RECURRENT VAGINITIS (HTRX) (02/20/2025 4:33 PM EDT) Pathologist [facility] ATOPOBIUM VAGINAE 0.000 19.961 - 24.689 ppm 02/22/2025 6:32 AM EDT [facility] ATOPOBIUM VAGINAE Not Detected 19.961 - 24.689 ppm 02/22/2025 6:32 AM EDT [facility] BVAB 2,3 (BACTERIAL VAGINOSIS ASSOCIATED BACTERIA 2, 3); MOBILUNCUS SPP 0.000 19.961 - 24.689 ppm 02/22/2025 6:32 AM EDT [facility] BVAB 2,3 (BACTERIAL VAGINOSIS ASSOCIATED BACTERIA 2, 3); MOBILUNCUS SPP Not Detected 19.961 - 24.689 ppm 02/22/2025 6:32 AM EDT [facility] SIMEON ALBICANS, PARAPSILOSIS, TROPICALIS 0.000 19.961 - 30.770 ppm 02/22/2025 6:32 AM EDT [facility] SIMEON ALBICANS, PARAPSILOSIS, TROPICALIS Not Detected 19.961 - 30.770 ppm 02/22/2025 6:32 AM EDT [facility] SIMEON GLABRATA 0.000 23.000 - 32.138 ppm 02/22/2025 6:32 AM EDT [facility] SIMEON GLABRATA Not Detected 23.000 - 32.138 ppm 02/22/2025 6:32 AM EDT [facility] SIMEON KRUSEI 0.000 23.000 - 32.271 ppm 02/22/2025 6:32 AM EDT [facility] SIMEON KRUSEI Not Detected 23.000 - 32.271 ppm 02/22/2025 6:32 AM EDT [facility] CHLAMYDIA TRACHOMATIS 0.000 23.000 - 31.467 ppm 02/22/2025 6:32 AM EDT [facility] CHLAMYDIA TRACHOMATIS Not Detected 23.000 - 31.467 ppm 02/22/2025 6:32 AM EDT [facility] GARDNERELLA VAGINALIS 0.000 19.961 - 24.689 ppm 02/22/2025 6:32 AM EDT [facility] GARDNERELLA VAGINALIS Not Detected 19.961 - 24.689 ppm 02/22/2025 6:32 AM EDT [facility] MEGASPHAERA (TYPES 1, 2) 0.000 19.961 - 24.689 ppm 02/22/2025 6:32 AM EDT [facility] MEGASPHAERA (TYPES 1, 2) Not Detected 19.961 - 24.689 ppm 02/22/2025 6:32 AM EDT [facility] NEISSERIA GONORRHOEAE 0.000 23.000 - 32.117 ppm 02/22/2025 6:32 AM EDT [facility] NEISSERIA GONORRHOEAE Not Detected 23.000 - 32.117 ppm 02/22/2025 6:32 AM EDT [facility] TRICHOMONAS VAGINALIS 0.000 23.000 - 32.119 ppm 02/22/2025 6:32 AM EDT [facility] TRICHOMONAS VAGINALIS Not Detected 23.000 - 32.119 ppm 02/22/2025 6:32 AM EDT [facility] MYCOPLASMA GENITALIUM 0.000 19.961 - 24.689 ppm 02/22/2025 6:32 AM EDT [facility] MYCOPLASMA GENITALIUM Not Detected 19.961 - 24.689 ppm 02/22/2025 6:32 AM EDT [facility] Tissue 02/20/2025 4:33 PM EDT 02/22/2025 1:53 AM EDT us Rossana [facility] LAB BLOOD ORDERABLES Final Resul t [facility] [address] [place] [address] * URINARY TRACT INFECTION (HTRX) (02/20/2025 4:30 PM EDT) Pathologist [facility] ACINETOBACTER BAUMANII 0.000 19.961 - 24.689 ppm 02/22/2025 6:52 AM EDT [facility] ACINETOBACTER BAUMANII Not Detected 19.961 - 24.689 ppm 02/22/2025 6:52 AM EDT [facility] CITROBACTER FREUNDII 0.000 23.000 - 31.881 ppm 02/22/2025 6:52 AM EDT [facility] CITROBACTER FREUNDII Not Detected 23.000 - 31.881 ppm 02/22/2025 6:52 AM EDT [facility] ENTEROBACTER AEROGENES, CLOACAE 0.000 23.000 - 31.535 ppm 02/22/2025 6:52 AM EDT [facility] ENTEROBACTER AEROGENES, CLOACAE Not Detected 23.000 - 31.535 ppm 02/22/2025 6:52 AM EDT [facility] ENTEROCOCCUS FAECALIS, FAECIUM 0.000 26.000 - 31.575 ppm 02/22/2025 6:52 AM EDT [facility] ENTEROCOCCUS FAECALIS, FAECIUM Not Detected 26.000 - 31.575 ppm 02/22/2025 6:52 AM EDT [facility] ESCHERICHIA COLI 0.000 23.000 - 28.500 ppm 02/22/2025 6:52 AM EDT [facility] ESCHERICHIA COLI Not Detected 23.000 - 28.500 ppm 02/22/2025 6:52 AM EDT [facility] KLEBSIELLA PNEUMONIAE, OXYTOCA 0.000 23.000 - 30.500 ppm 02/22/2025 6:52 AM EDT [facility] KLEBSIELLA PNEUMONIAE, OXYTOCA Not Detected 23.000 - 30.500 ppm 02/22/2025 6:52 AM EDT [facility] MORGANELLA MORGANII 0.000 19.961 - 24.689 ppm 02/22/2025 6:52 AM EDT [facility] MORGANELLA MORGANII Not Detected 19.961 - 24.689 ppm 02/22/2025 6:52 AM EDT [facility] PROTEUS MIRABILIS, VULGARIS 0.000 23.000 - 28.500 ppm 02/22/2025 6:52 AM EDT [facility] PROTEUS MIRABILIS, VULGARIS Not Detected 23.000 - 28.500 ppm 02/22/2025 6:52 AM EDT [facility] PSEUDOMONAS AERUGINOSA 0.000 23.000 - 28.500 ppm 02/22/2025 6:52 AM EDT [facility] PSEUDOMONAS AERUGINOSA Not Detected 23.000 - 28.500 ppm 02/22/2025 6:52 AM EDT [facility] STAPHYLOCOCCUS AUREUS 0.000 26.000 - 30.902 ppm 02/22/2025 6:52 AM EDT [facility] STAPHYLOCOCCUS AUREUS Not Detected 26.000 - 30.902 ppm 02/22/2025 6:52 AM EDT [facility] STREPTOCOCCUS AGALACTIAE (GROUP B STREP) 0.000 26.000 - 32.222 ppm 02/22/2025 6:52 AM EDT [facility] STREPTOCOCCUS AGALACTIAE (GROUP B STREP) Not Detected 26.000 - 32.222 ppm 02/22/2025 6:52 AM EDT [facility] SIMEON ALBICANS, PARAPSILOSIS, TROPICALIS 0.000 19.961 - 30.770 ppm 02/22/2025 6:52 AM EDT [facility] SIMEON ALBICANS, PARAPSILOSIS, TROPICALIS Not Detected 19.961 - 30.770 ppm 02/22/2025 6:52 AM EDT [facility] SIMEON GLABRATA 0.000 23.000 - 32.138 ppm 02/22/2025 6:52 AM EDT [facility] SIMEON GLABRATA Not Detected 23.000 - 32.138 ppm 02/22/2025 6:52 AM EDT [facility] SIMEON KRUSEI 0.000 23.000 - 32.271 ppm 02/22/2025 6:52 AM EDT [facility] SIMEON KRUSEI Not Detected 23.000 - 32.271 ppm 02/22/2025 6:52 AM EDT [facility] SERRATIA MARCESCENS 0.000 23.000 - 31.204 ppm 02/22/2025 6:52 AM EDT [facility] SERRATIA MARCESCENS Not Detected 23.000 - 31.204 ppm 02/22/2025 6:52 AM EDT [facility] STREPTOCOCCUS PYOGENES (GROUP A STREP) 0.000 19.961 - 24.689 ppm 02/22/2025 6:52 AM EDT [facility] STREPTOCOCCUS PYOGENES (GROUP A STREP) Not Detected 19.961 - 24.689 ppm 02/22/2025 6:52 AM EDT [facility] STAPHYLOCOCCUS EPIDERMIDIS, HAEMOLYTICUS, LUGDUNENSIS, SAPROPHYTICUS (URINA 0.000 19.961 - 24.689 ppm 02/22/2025 6:52 AM EDT [facility] STAPHYLOCOCCUS EPIDERMIDIS, HAEMOLYTICUS, LUGDUNENSIS, SAPROPHYTICUS (URINA Not Detected 19.961 - 24.689 ppm 02/22/2025 6:52 AM EDT [facility] STAPHYLOCOCCUS EPIDERMIDIS, HAEMOLYTICUS, LUGDUNENSIS, SAPROPHYTICUS (URINA 0.000 19.961 - 24.689 ppm 02/22/2025 6:52 AM EDT [facility] STAPHYLOCOCCUS EPIDERMIDIS, HAEMOLYTICUS, LUGDUNENSIS, SAPROPHYTICUS (URINA Not Detected 19.961 - 24.689 ppm 02/22/2025 6:52 AM EDT [facility] Urine 02/20/2025 4:30 PM EDT 02/22/2025 1:52 AM EDT us Rossana BISWAS LAB BLOOD ORDERABLES Final Resul t [facility] [address] [place] [address] * IGP,APTIMA HPV,AGE GDLN (02/20/2025 3:50 PM EDT) AGE GDLN ACOG TESTING Note . [facility] Comment: TESTS RESULT FLAG UNITS REF RANGE LAB Clinician Provided Cytology Information Source.............Endocervix No. of containers..01 ThinPrep Vial Age Ramirez Arndt... FLAG LEGEND: L-Low Normal,H-High Normal,LL-Alert Low,HH-Alert High <-Panic Low,>-Panic High,A-Abnormal,AA-Critical Abnormal Performed at: 01 =G [facility] [address] [place] [address] Jenise Byrne MD, IGP, RFX APTIMA HPV ASCU Note . [facility] Comment: TESTS RESULT FLAG UNITS REF RANGE LAB DIAGNOSIS: 02 NEGATIVE FOR INTRAEPITHELIAL LESION OR MALIGNANCY. Specimen adequacy: 02 Satisfactory for evaluation. Endocervical and/or squamous metaplastic cells (endocervical component) are present. Performed by: Hussein Alvarez, Structural Fitter (ASCP) . 02 Note: Note 02 The Pap [...] <-Panic Low,>-Panic High,A-Abnormal,AA-Critical Abnormal Performed at: [address] [address] Jenise Byrne MD, Performed at: =[facility] [id number] Director Of Strategic Communications: Jenise Byrne MD, Phone: [phone] Performed at: [address] [id number] Director Of Strategic Communications: Jenise Byrne MD, Phone: [phone] 02/20/2025 3:50 PM EDT 02/20/2025 9:13 PM EDT Narrative [facility] - 02/23/2025 1:08 PM EDT SPATULA-ALONE ENDOCERVIX Rossana BISWAS LAB BLOOD ORDERABLES Final Resul t Performing Organization Address [facility]/ZIP Co de Phone Number [facility] TB * Pap Smear (02/20/2025 12:00 AM EDT) Swab Cervical swab / Unknown Rossana [facility] LAB CYTOLOGY ORDERABLES Final Re sult Performing Organization Address [facility]/ZIP Co de Phone Number EXTERNAL LAB from Last 3 Months Insurance [employer] Care Teams Tutorial Laboratory Supervisor Relationship Specialty Start Date End Date Unallocated, [facility] MD Gilda [id number] [place], [place] [id number] PCP - General Family Medicine 08/03/24
--- OUTSIDE RECORDS SUMMARY | 2025-04-27 09:07 | XMS_ITS | CCD ---
Author Organization [facility] Care Team Providers Care Home Restoration Service Cleaner Name Role Phone MICHAEL ., DR MANN [...] Unavailable MISC, DR DOMINIQUE Primary Care Unavailable POWDERLY, DR COCO Danielle Consulting Unavailable MICHAEL ., DR MANN Consulting Unavailable MICHAEL ., DR MANN Admitting Unavailable MICHAEL ., DR MANN Attending Unavailable MISC, DR DOMINIQUE Primary Care Unavailable MICHAEL ., DR MANN Consulting Unavailable MICHAEL ., DR MANN Admitting Unavailable MICHAEL ., DR MANN Attending Unavailable MISC, DR DOMINIQUE Primary Care Unavailable POWDERLY, DR COCO Danielle Consulting Unavailable MICHAEL ., [...] Unava ilable Jose Rodriguez DO Attending Provider [phone] Unallocated Arjun GREENBERG Provider Primary Care Provi krissy NO FAMILY, PHYSICIAN Primary Care Unavailable Jose Rodriguez Attending Unavailable Jose Rodriguez Admitting Unavailable JOSE RODRIGUEZ Attending Unavailable ROSSANA LEACH Attending Unavailable MICHAEL, JOSE Attending Unavailable ROSSANA LEACH Attending Unavailable JOSE RODRIGUEZ Attending Unavailable ROSSANA [...] / zinc oxide 20 mg oral tablet (19 sources) Vitamin B12, Vitamin D, Vitamin C take 1 tablet by mouth once daily Vit-DSS-Fe Fum-FA ( 19) 29-1 MG tablet Take 1 each by mouth 1 (one) time each day at the same time Active labetalol hydrochloride 200 mg oral tablet (7 sources) beta-Adrenergic Haseeb Start: 04-25-2025 End: 04-25-2026 take 1 tablet by mouth in the morning labetalol (Normodyne) 200 MG tablet Indications: induced hypertension, antepartum (HHS-HCC) Take 1 tablet (200 mg) by mouth in the morning and 1 tablet (200 mg) before bedtime. 60 tablet 11 04/25/2025 04/25/2026 Active Start: 04-11-2025 End: 07-17-2026 take 1 tablet by mouth in the morning labetalol (Normodyne) 100 MG tablet Indications: Elevated BP without diagnosis of hypertension Take 1 tablet (100 mg) by mouth in the morning and 1 tablet (100 mg) before bedtime. 60 tablet 11 04/11/2025 04/25/2025 Discontinued (Ineffective) loratadine 10 mg oral tablet (19 sources) take 1 tablet by mouth once daily loratadine (Claritin) 10 MG tablet Take 10 mg by mouth Daily Active ondansetron 4 mg oral tablet (10 sources) Serotonin-3 Receptor Antagonist Start: 06-29-20 End: 08-20-20 take 1 tablet by mouth every six [...] source) Active progesterone 100 mg vaginal insert (19 sources) Progesterone progesterone (Endometrin) 100 MG vaginal insert Insert 100 mg into the vagina in the morning and 100 mg before bedtime. Active Progesterone 200 MG suppository (2 sources) Start: 11-12-19 End: 12-13-19 Progesterone 200 MG suppository Indications: History of [...] MATERNAL HTN COMP PUERPERIUM] Onset: 08-16-2022 Chronic Hypertension complicating ; childbirth and the puerperium (2 sources) -induced hypertension; Translations: [Gestational [-induced] hypertension without significant proteinuria, unspecified trimester] 04-25-2025 Episodic Immunizations and screening for infectious disease (4 [...] other than malignant neoplasm] 08-20-2024 Episodic Other circulatory disease (2 sources) Elevated blood-pressure reading without diagnosis of hypertension; Translations: [Elevated blood-pressure reading, without diagnosis of hypertension] 04-11-2025 Episodic Other connective tissue disease (1 source) Pain in right finger(s) Episodic Other and delivery including normal (20 sources) Single live ; Translations: [Encounter for supervision of other normal , third trimester] Onset: 01-18-2022 Episodic Other screening for suspected conditions (not mental disorders or infectious disease) (18 sources) Encounter for screening for malignant neoplasm [...] [21 weeks gestation of ] 03-14-2025 Episodic Residual codes; unclassified (2 sources) Gestation period, 25 weeks; Translations: [25 weeks gestation of ] 04-11-2025 Episodic Residual codes; unclassified (2 sources) Gestation period, 27 weeks; Translations: [27 weeks gestation of ] 04-25-2025 Episodic Spontaneous (2 sources) Miscarriage; Translations: [Complete [...] Range Facility Urinalysis macro (dipstick) panel (U)on 04-25-2025 Bilirubin, UA Negative Negative - 4(70) +++ mg/dL [facility] Blood, UA Negative Negative - 50 Jason/mcL [facility] Clarity, UA Clear [facility] Color[facility]A Yellow [facility] Glucose, UA Negative Negative - 2000(110) ++++ mg/dL [facility] Interpretation and review of laboratory results Normal [facility] Ketones, UA Negative Negative - 160(16) ++++ mg/dL [facility] Leukocytes, UA Negative Negative - 500+++ Carlos/mcL [facility] Nitrite, UA Negative Negative - Positive [facility] pH, UA 6.5 5 - 9 [facility] Protein, UA Negative Negative - 1999(20) ++++ mg/dL [facility] Spec Grav, UA 1.01 1 - 1.03 [facility] Urobilinogen, UA 0.2 0.2 - 12 mg/dL [facility] Urinalysis macro (dipstick) panel (U)on 04-11-2025 Bilirubin, UA Negative Negative - 4(70) +++ mg/dL [facility] Blood, UA Negative Negative - 50 Jason/mcL [facility] Clarity, UA Clear [facility] Color, UA Yellow [facility] Glucose, UA Negative Negative - 1999(110) ++++ mg/dL [facility] Interpretation and review of laboratory results Normal [facility] Ketones, UA Negative Negative - 160(16) ++++ mg/dL [facility] Leukocytes, UA Negative Negative - 500+++ Carlos/mcL [facility] Nitrite, UA Negative Negative - Positive [facility] pH, UA 7 5 - 9 [facility] Protein, UA Negative Negative - 1999(20) ++++ mg/dL [facility] Spec Grav, UA 1.005 1 - 1.03 [facility] care Urobilinogen, UA 1.0 0.2 - 12 mg/dL [facility] INCOMPLETE ANATOMYon 0 03-25-2025 [place] [address] Ultrasound Report Signed Patient: VIMAL FUNES MR#: [id number] : 2000 Acct:[id number] Age/Sex: 24 / F ADM Date: 03/23/25 Loc: US Attending Dr: Jose Rodriguez D.O. Ordering Physician: Jose Rodriguez D.O. Date of Service: 03/23/25 Procedure(s): US OB incomplete anatomy Accession Number(s): [id number] cc: JENNIFER SEE ; Jose Rodriguez D.O. [address] [address] Patient Name: VIMAL FUNES MRN: [facility]:[id number] date: 2000 Sex: F Assigned Patient Location: US Current Patient Location: US Accession/Order Number: [id number] Exam Date: 03/25/2025 08:23 Report Date: 03/25/2025 08:25 At the request of: JOSE RODRIGUEZ DO Procedure: US OB incomplete anatomy [...] Brown M.D. 03/25/2025 8:25 AM Dictation Location: [place] [address] Electronically authenticated by: [id number] Y Date: 03/25/2025 08:25 Dictated By: Meghana Brown M.D. Signed By: 03/25/25826 DD/ 4 TD/TT: Automation Sales Manager: [facility] Radiology, Radiologist, MD - 03/25/2025 [place] [address] Ultrasound Report Signed Patient: VIMAL FUNES MR#: [id number] : 2000 Acct:[id number] Age/Sex: 24 / F ADM Date: 03/23/25 Loc: US Attending Dr: Jose Rodriguez D.O. Ordering Physician: Jose Rodriguez D.O. Date of Service: 03/23/25 Procedure(s): US OB incomplete anatomy Accession Number(s): [id number] cc: JENNIFER SEE ; Jose Rodriguez D.O. The [place] [id number] Patient Name: VIMAL FUNES MRN: [facility]:[id number] date: 2000 Sex: F Assigned Patient Location: US Current Patient Location: US Accession/Order Number: [id number] Exam Date: 03/25/2025 08:23 Report Date: 03/25/2025 08:25 At the request of: JOSE RODRIGUEZ DO Procedure: US OB incomplete anatomy [...] Brown M.D. 03/25/2025 8:25 AM Dictation Location: [place] [address] Electronically authenticated by: [id number] Y Date: 03/25/2025 08:25 Dictated By: Meghana Brown M.D. Signed By: 03/25/25826 DD/ 4 TD/TT: Automation Sales Manager: [facility] Radiology Study observation (narrative) [facility] OB INCOMPLETE ANATOMYOrde red By: Radiologist Radiology on 03-25-2025 [facility] e Work Phone: Urinalysis macro (dipstick) panel (U)on 03-14-2025 Bilirubin, UA Negative Negative - 4(70) +++ mg/dL [facility] Blood, UA Negative Negative - 50 Jason/mcL [facility] Clarity, UA Clear [facility] Color, UA Yellow [facility] e Glucose, UA Negative Negative - 2000(110) ++++ mg/dL [facility] Interpretation and review of laboratory results Normal [facility] Ketones, UA Negative Negative - 160(16) ++++ mg/dL [facility] Leukocytes, UA Negative Negative - 500+++ Carlos/mcL [facility] Nitrite, UA Negative Negative - Positive [facility] pH, UA 7 5 - 9 [facility] Protein, UA Negative Negative - 1999(20) ++++ mg/dL [facility] Spec Grav, UA 1.01 1 - 1.03 [facility] Urobilinogen, UA 0.2 0.2 - 12 mg/dL [facility] No Panel InformationOrdered By: Radiologist Radiology on 03-08-2025 [facility] Work Phone: No Panel Informationon 03-08 Radiology Study observation (narrative) [facility] US OB ANATOMYon 03-08-2025 [place] [address] Ultrasound Report Signed Patient: VIMAL FUNES MR#: [id number] : 2000 Acct:[id number] Age/Sex: 24 / F ADM Date: 03/08/25 Loc: US Attending Dr: Jose Rodriguez D.O. Ordering Physician: Jose Rodriguez D.O. Date of Service: 03/08/25 Procedure(s): US OB anatomy Accession Number(s): [id number] cc: JENNIFER SEE ; Jose Rodriguez D.O. [place] [id number] Patient Name: VIMAL FUNES MRN: [id number] date: 2000 Sex: F Assigned Patient Location: US Current Patient Location: US Accession/Order Number: [id number] Exam Date: 03/08/2025 20:31 Report Date: 03/08/2025 [...] Knapp M.D. 03/08/2025 8:36 PM Dictation Location: [employer] Electronically authenticated by: [id number] Y Date: 03/08/2025 20:36 Dictated By: Shivam Knapp D.O. Signed By: 03/08/252037 DD/ 35 TD/TT: Automation Sales Manager: [facility] Radiology, Radiologist, MD - 03/08/2025 [place] [address] Ultrasound Report Signed Patient: VIMAL FUNES MR#: [id number] : 2000 Acct:[id number] Age/Sex: 24 / F ADM Date: 03/08/25 Loc: US Attending Dr: Jose Rodriguez D.O. Ordering Physician: Jose Rodriguez D.O. Date of Service: 03/08/25 Procedure(s): US OB anatomy Accession Number(s): [id number] cc: JENNIFER SEE ; Jose Rodriguez D.O. The [place] [address] Patient Name: VIMAL FUNES MRN: [facility]:[id number] date: 2000 Sex: F Assigned Patient Location: US Current Patient Location: US Accession/Order Number: [id number] Exam Date: 03/08/2025 20:31 Report Date: 03/08/2025 [...] Knapp M.D. 03/08/2025 8:36 PM [facility]ictation Location[facility] Electron[facility] authenticated by: [id number] Y Date: 03/08/2025 20:36 Dictated By: Shivam Knapp D.O. Signed By: 03/08/252037 DD/ 35 TD/TT: Automation Sales Manager: [facility] OB CERVICAL LENGTHon 02-24 [place] [address] Ultrasound Report Signed Patient: VIMAL FUNES MR#: [id number] : 2000 Acct:[id number] Age/Sex: 24 / F ADM Date: 03/08/25 Loc: US Attending Dr: Jose Rodriguez D.O. Ordering Physician: Jose Rodriguez D.O. Date of Service: 03/08/25 Procedure(s): US OB cervical length Accession Number(s): [id number] cc: JENNIFER SEE ; Jose Rodriguez D.O. [address] [address] Patient Name: VIMAL FUNES MRN: [facility]:[id number] date: 2000 Sex: F Assigned Patient Location: US Current Patient Location: Accession/Order Number: [id number] Exam Date: 03/08/2025 20:31 Report Date: 03/08/2025 [...] Knapp M.D. 03/08/2025 8:36 PM Dictation Location: [place] [address] Electronically authenticated by: [id number] Y Date: 03/08/2025 20:36 Dictated By: Shivam Knapp D.O. Signed By: 03/08/252037 DD/ 35 TD/TT: Automation Sales Manager: [facility] Radiology, Radiologist, MD - 03/08/2025 [place] [address] Ultrasound Report Signed Patient: VIMAL FUNES MR#: [id number] : 2000 Acct:[id number] Age/Sex: 24 / F ADM Date: 03/08/25 Loc: US Attending Dr: Jose Rodriguez D.O. Ordering Physician: Jose Rodriguez D.O. Date of Service: 03/08/25 Procedure(s): US OB cervical length Accession Number(s): [id number] cc: JENNIFER SEE ; Jose Rodriguez D.O. [place] [id number] Patient Name: VIMAL FUNES MRN: [id number]:[id number] date: 2000 Sex: F Assigned Patient Location: US Current Patient Location: US Accession/Order Number: [id number] Exam Date: 03/08/2025 20:31 Report Date: 03/08/2025 [...] Knapp M.D. 03/08/2025 8:36 PM Dictation Location: [facility] Electronically authenticated by: [id number] Y Date: 03/08/2025 20:36 Dictated By: Shivam Knapp D.O. Signed By: 03/08/252037 DD/ 35 TD/TT: Automation Sales Manager: [facility] IGP,APTIMA HPV,AGE GDLNon AGE GDLN ACOG TESTING Note . [facility] Comment on above: TESTS RESULT FLAG UN ITS REF RANGE LAB Clinician Provided Cytology Information Source.............Endocervix No. of containers..01 ThinPrep Vial Age Ramirez MORALES Yris... FLAG LEGEND: L-Low Normal,H-High Normal,LL-Alert Low,HH-Alert High <-Panic Low,>-Panic High,A-Abnormal,AA-Critical Abnormal Performed at: 01 =G [facility] [address] [place] [address] Jenise Byrne MD, IGP, RFX APTIMA HPV ASCU Note . [facility] Comment on above: TESTS RESULT FLAG U NITS REF RANGE LAB DIAGNOSIS: 02 NEGATIVE FOR INTRAEPITHELIAL LESION OR MALIGNANCY. Specimen adequacy: 02 Satisfactory for evaluation. Endocervical and/or squamous metaplastic cells (endocervical component) are present. Performed by: Hussein Alvarez, Loader Technician ([facility]) . 02 Note: Note 02 The [...] <-Panic Low,>-Panic High,A-Abnormal,AA-Critical Abnormal Performed at: [address] [address] Jenise Byrne MD, Performed at: = - [address] [id number] On Site Services Specialist: Jenise Byrne MD, Phone: [phone] Performed at: [address] [id number] On Site Services Specialist: Jenise Byrne MD, Phone: [phone] SPATULA-AL[facility] ENDOCERVIX [facility] e RECURRENT VAGINITIS (HTRX)on 02-22-2025 ATOPOBIUM VAGINAE 0 [facility] ATOPOBIUM VAGINAE Not detected [facility] BVAB 2,3 (BACTERIAL VAGINOSIS ASSOCIATED BACTERIA 2, 3); MOBILUNCUS SPP 0 [facility] BVAB 2,3 (BACTERIAL VAGINOSIS ASSOCIATED BACTERIA 2, 3); MOBILUNCUS SPP Not detected [facility] SIMEON ALBICANS, PARAPSILOSIS, TROPICALIS 0 [facility] SIMEON ALBICANS, PARAPSILOSIS, TROPICALIS Not detected [facility] SIMEON GLABRATA 0 [facility] GLABRATA Not detected [facility] SIMEON KRUSEI 0 [facility] SIMOEN KRUSEI Not detected [facility] CHLAMYDIA TRACHOMATIS 0 [facility] CHLAMYDIA TRACHOMATIS Not detected [facility] GARDNERELLA VAGINALIS 0 [facility] GARDNERELLA VAGINALIS Not detected N [facility] MEGASPHAERA (TYPES 1, 2) 0 [facility] MEGASPHAERA (TYPES 1, 2) Not detected [facility] MYCOPLASMA GENITALIUM 0 [facility] MYCOPLASMA GENITALIUM Not detected [facility] NEISSERIA GONORRHOEAE 0 [facility] NEISSERIA GONORRHOEAE Not detected [facility] TRICHOMONAS VAGINALIS 0 [facility] TRICHOMONAS VAGINALIS Not detected [facility] Urinalysis macro (dipstick) panel (U)on 02-20-2025 Bilirubin, UA Negative Negative - 4(70) +++ mg/dL [facility] Blood, UA Negative Negative - 50 Jason/mcL [facility] Clarity, UA Clear [facility] Healthca re Color, UA Yellow [facility] Glucose, UA Negative Negative - 1999(110) ++++ mg/dL [facility] Interpretation and review of laboratory results Abnormal [facility] Ketones, UA Negative Negative - 160(16) ++++ mg/dL [facility] Leukocytes, UA Negative Negative - 500+++ Carlos/mcL [facility] Nitrite, UA Negative Negative - Positive [facility] pH, UA 7 5 - 9 [facility] Health[facility] e Protein, UA Negative Negative - 1999(20) ++++ mg/dL [facility] Spec Grav, UA 1.01 1 - 1.03 [facility] Urobilinogen, UA 0.2 0.2 - 12 mg/dL [facility] Urinalysis macro (dipstick) panel (U)on 01-14-2025 Bilirubin, UA Negative Negative - 4(70) +++ mg/dL [facility] Blood, UA Positive Negative - 50 Jason/mcL [facility] Comment on above: trace-intact Clarity, UA Clear [facility] Healthca re Color, UA Yellow [facility] Health[facility] Glucose, UA Negative Negative - 1999(110) ++++ mg/dL [facility] Interpretation and review of laboratory results Abnormal [facility] Ketones, UA Negative Negative - 160(16) ++++ mg/dL [facility] Leukocytes, UA Negative Negative - 500+++ Carlos/mcL [facility] Nitrite, UA Negative Negative - Positive [facility] pH, UA 6 5 - 9 [facility] Protein, UA Negative Negative - 1999(20) ++++ mg/dL [facility] Spec Grav, UA 1.005 1 - 1.03 [facility] Urobilinogen, UA 0.2 0.2 - 12 mg/dL [facility] Health[facility] e ALL CBC WITH AUTO DIFFon BASOPHILS ABSOLUTE AUTO 0 [facility] Basophils/100 WBC (Bld) 0.4 % 0.2 - 2.0 % [facility] Eosinophils/100 WBC (Bld) 1.7 % 0.9 - 7.0 % [facility] Erythrocyte distribution width (RBC) [Ratio] 12.3 % 11.0 - 15.0 % [facility] Hematocrit (Bld) [Volume fraction] 42.5 % 36.0 - 48.0 % [facility] Hemoglobin (Bld) [Mass/Vol] 14.7 g/dL 12.0 - 16.0 g/dL [facility] IMMATURE GRANULOCYTES ABS AUTO 0.02 [facility] Immature granulocytes/100 WBC (Bld) 0.2 % 0.0 - 0.5 % [facility] Interpretation and review of laboratory results Abnormal [facility] LYMPHOCYTES ABSOLUTE AUTO 1.4 [facility] Lymphocytes/100 WBC (Bld) 15.4 % Low 20.5 - 60.0 % [facility] MCH (RBC) [Entitic mass] 31.6 pg 26.7 - 34.0 pg [facility] MCHC (RBC) [Mass/Vol] 34.6 g/dL 29.9 - 35.2 g/dL [facility] MCV (RBC) [Entitic vol] 91.4 fL 81.0 - 99.0 fL [facility] MONOCYTES ABSOLUTE AUTO 0.5 [facility] Monocytes/100 WBC (Bld) 5.4 % 1.7 - 12.0 % [facility] NEUTROPHILS ABSOLUTE AUTO 7 High [facility] Neutrophils/100 WBC (Bld) 76.9 % High 43.0 - 75.0 % [facility] Platelet mean volume (Bld) [Entitic vol] 10.1 fL 9.5 - 13.5 fL [facility] TBH EO # 0.2 [facility] [...] II, MD, PHD at 14-Dec-2024 08:35:59 PM [facility] Normal Not Available Comment on above: Order Comment: US OB TRANSVAGINAL No LMP recorded. [facility] PREG QUANT HCGon 025 HCG QUANTITATIVE 89489 mIU/mL [facility] Comment on above: 5-50 0.2-1 WEEK 50-500 1-2 WEEKS 100-5,000 2-3 WEEKS 500-10,000 3-4 WEEKS 1,000-50,000 4-5 WEEKS 10,000-100,000 5-6 WEEKS 15,000-200,000 6-8 WEEKS 10,000-100,000 2-3 MONTHS [facility] TBH PREG QUANT HCGon 11-19- 025 HCG QUANTITATIVE 6254 mIU/mL [facility] Comment on above: 5-50 0.2-1 WEEK 50-500 1-2 WEEKS 100-5,000 2-3 WEEKS 500-10,000 3-4 WEEKS 1,000-50,000 4-5 WEEKS 10,000-100,000 5-6 WEEKS 15,000-200,000 6-8 WEEKS 10,000-100,000 2-3 MONTHS [facility] PREG QUANT HCGon 024 HCG QUANTITATIVE 6 mIU/mL [facility] Comment on above: 5-50 0.2-1 WEEK 50-500 1-2 WEEKS 100-5,000 2-3 WEEKS 500-10,000 3-4 WEEKS 1,000-50,000 4-5 WEEKS 10,000-100,000 5-6 WEEKS 15,000-200,000 6-8 WEEKS 10,000-100,000 2-3 [facility] ALL CBC WITH AUTO DIFFon BASOPHILS ABSOLUTE AUTO 0 [facility] Basophils/100 WBC (Bld) 0.5 % 0.2 - 2.0 % [facility] Eosinophils/100 WBC (Bld) 6.2 % 0.9 - 7.0 % [facility] Erythrocyte distribution width (RBC) [Ratio] 11.9 % 11.0 - 15.0 % [facility] Hematocrit (Bld) [Volume fraction] 43.8 % 36.0 - 48.0 % [facility] Hemoglobin (Bld) [Mass/Vol] 14.8 g/dL 12.0 - 16.0 g/dL [facility] IMMATURE GRANULOCYTES ABS AUTO 0.02 [facility] Immature granulocytes/100 WBC (Bld) 0.2 % 0.0 - 0.5 % [facility] LYMPHOCYTES ABSOLUTE AUTO 2 [facility] Lymphocytes/100 WBC (Bld) 22.1 % 20.5 - 60.0 % [facility] MCH (RBC) [Entitic mass] 31.7 pg 26.7 - 34.0 pg [facility] MCHC (RBC) [Mass/Vol] 33.8 g/dL 29.9 - 35.2 g/dL [facility] MCV (RBC) [Entitic vol] 93.8 fL 81.0 - 99.0 fL [facility] MONOCYTES ABSOLUTE AUTO 0.5 [facility] Monocytes/100 WBC (Bld) 5.3 % 1.7 - 12.0 % [facility] NEUTROPHILS ABSOLUTE AUTO 5.8 [facility] Neutrophils/100 WBC (Bld) 65.7 % 43.0 - 75.0 % [facility] Platelet mean volume (Bld) [Entitic vol] 10 fL 9.5 - 13.5 fL [facility] EO # 0.6 [facility] PLT 236 [facility] RBC 4.67 [facility] WBC 8.9 [facility] [employer] [place] 08-10-2024 L Specimen: [id number] Received: 08/10/24 Status: CAROL Hoang Num: [id number] Spec Type: Surgical Subm Dr: Jose Rodriguez Tissues: A Products of Conception - Spontaneous or Missed (CONTENTS OF CONCEPT Procedures: HE/Sandra, Gross/Micro L4 Age/ Patient Sex Location Account Attending Physician Vimal Funes LABELL [id number] Jose Rodriguez SPEC NUM: [id number] RECD: 08/10/24 STATUS: CAROL REJolie NUM: [id number] CAROLIN: 08/10/[address] [facility] [address]: Jose Rodriguez ENTERED: 08/10/[address]: Rafia,Lab SPEC TYPE: Surgical DEPT: MONICA ALTMAN ENTERED BY: [id number] RECV BY: [id number] ORDERED: HE/2, Gross/Micro L4 ORDERED: HE/2, Gross/Micro [...] villi and decidua. No tissue is identified. Bulldozer/Loader/Compactor/Scraper sections of the chorionic villi are submitted in cassette A1 with sales development representative sections of the decidua is submitted in cassette A2. (2, ss, [id number] A) CPT Codes 85014 Specimen: [id number] Received: 08/10/24-1501 Status: CAROL Hoang Num: [id number] Spec Type: Surgical Subm Dr: Jose Rodriguez Tissues: A Products of Conception - Spontaneous or Missed (CONTENTS OF CONCEPT Procedures: HE/2, Gross/Micro L4 Patient: Vimal Funes [id number] (Continued) Signed (signature on file) Josh Aragon MD 08/13/24 4458 Normal [facility] TB PREG QUANT HCGon 08-10- 024 HCG QUANTITATIVE 240 mIU/mL [facility] ltare Comment on above: 5-50 0.2-1 WEEK 50-500 1-2 WEEKS 100-5,000 2-3 WEEKS 500-10,000 3-4 WEEKS 1,000-50,000 4-5 WEEKS 10,000-100,000 5-6 WEEKS 15,000-200,000 6-8 WEEKS 10,000-100,000 2-3 MONTHS [facility] ALL CBC WITH AUTO DIFFon BASOPHILS ABSOLUTE AUTO 0.1 [facility] Basophils/100 WBC (Bld) 0.5 % 0.2 - 2.0 % [facility] Eosinophils/100 WBC (Bld) 2.8 % 0.9 - 7.0 % [facility] Erythrocyte distribution width (RBC) [Ratio] 11.9 % 11.0 - 15.0 % [facility] Hematocrit (Bld) [Volume fraction] 44.7 % 36.0 - 48.0 % [facility] Hemoglobin (Bld) [Mass/Vol] 15.3 g/dL 12.0 - 16.0 g/dL [facility] IMMATURE GRANULOCYTES ABS AUTO 0.03 [facility] Immature granulocytes/100 WBC (Bld) 0.3 % 0.0 - 0.5 % [facility] Interpretation and review of laboratory results Abnormal [facility] LYMPHOCYTES ABSOLUTE AUTO 1.6 [facility] [facility] Lymphocytes/100 WBC (Bld) 14.9 % Low 20.5 - 60.0 % [facility] MCH (RBC) [Entitic mass] 31.7 pg 26.7 - 34.0 pg [facility] MCHC (RBC) [Mass/Vol] 34.2 g/dL 29.9 - 35.2 g/dL [facility] MCV (RBC) [Entitic vol] 92.7 fL 81.0 - 99.0 fL [facility] MONOCYTES ABSOLUTE AUTO 0.4 [facility] Monocytes/100 WBC (Bld) 3.7 % 1.7 - 12.0 % [facility] NEUTROPHILS ABSOLUTE AUTO 8.2 High [facility] Neutrophils/100 WBC (Bld) 77.8 % High 43.0 - 75.0 % [facility] Platelet mean volume (Bld) [Entitic vol] 10 fL 9.5 - 13.5 fL [facility] TBH EO # 0.3 [facility] e TB PLT 263 [facility] e TB RBC 4.82 [facility] e TB WBC 10.6 [facility] No [facility] DR[facility] SCREEN RAPID (URINE )on 07-21-2024 AMPHETAMINE SCREEN URINE Negative NEGATIVE [facility] BARBITURATES SCREEN URINE Negative NEGATIVE [facility] BENZODIAZEPINES SCREEN URINE Negative NEGATIVE [facility] BUPRENORPHINE SCREEN URINE Negative NEGATIVE [facility] Comment on above: DRUG CLASS TEST [...] 300 ng/mL CANNABINOID SCREEN URINE Negative NEGATIVE [facility] COCAINE SCREEN URINE Negative NEGATIVE [facility] METHADONE SCREEN URINE Negative NEGATIVE NO [facility] METHAMPHETAMINES SCREEN URINE Negative NEGATIVE [facility] OPIATE SCREEN URINE Negative NEGATIVE [facility] OXYCODONE SCREEN URINE Negative NEGATIVE NO [facility] PHENCYCLIDINE SCREEN URINE Negative NEGATIVE [facility] TRICYCLIC ANTIDEPRESSANT URINE Negative NEGATIVE [facility] REEFLEX IF POSITIVE CLINISYNC HCG ( test) Ql (U)o n 06-29-2024 Interpretation and review of laboratory results Abnormal [facility] Preg Test, Ur Positive [facility] Urinalysis macro (dipstick) panel (U)on 06-29-2024 Bilirubin, UA Negative Negative - 4(70) +++ mg/dL [facility] Blood, UA Negative Negative - 50 Jason/mcL [facility] Clarity, UA Clear [facility] re Color, UA Yellow [facility] Glucose, UA Negative Negative - 1999(110) ++++ mg/dL [facility] Interpretation and review of laboratory results Normal [facility] Ketones, UA Negative Negative - 160(16) ++++ mg/dL [facility] Leukocytes, UA Negative Negative - 500+++ Carlos/mcL [facility] Nitrite, UA Negative Negative - Positive [facility] pH, UA 7.0 5 - 9 [facility] Protein, UA Negative Negative - 1999(20) ++++ mg/dL [facility] Spec Grav, UA 1.015 1 - 1.03 [facility] Urobilinogen, UA 0.2 0.2 - 12 mg/dL [facility] XR hand RT min 3V*on 023 XR hand RT min 3V* [facility] [employer] Other XR hand RT min 3V* [facility] [address] [place] [employer] Other XR hand RT min 3V* [address] [facility] [employer] Other XR hand RT min 3V* CASSIE Tinoco [address] [employer] Other XR hand RT min 3V* XRay Report [employer] Other XR hand RT min 3V* Signed [employer] Other XR hand RT min 3V* Patient: Vimal Funes MR#: [id number] [employer] Other XR hand RT min 3V* 18 [employer] Other XR hand RT min 3V* : 2000 Acct:[id number] [employer] Other XR hand RT min 3V* Age/Sex: 22 / F ADM Date: 12/26/22 [employer] Other XR hand RT min 3V* Loc: XDUCLY Room: Type: REG CLI [employer] Other XR hand RT min 3V* Attending Dr: Jennifer GIL [employer] Other XR hand RT min 3V* Copies to: JEFFERY Rodriguez [employer] Other XR hand RT min 3V* Ordering Provider: JEFFERY Rodriguez [employer] Other XR hand RT min 3V* Date of Service: 12/26/22 [employer] Other XR hand RT min 3V* XR/XR hand RT min 3V*: RIGHT HAND INJURY [employer] Other XR hand RT min 3V* RIGHT HAND - 4 views [employer] Other XR hand RT min 3V* REASON FOR EXAM: Patient had right thumb hyperextended yesterday when trying to open the door. Now [employer] Other XR hand RT min 3V* with pain. [employer] Other XR hand RT min 3V* COMPARISON: None [employer] Other XR hand RT min 3V* FINDINGS: [employer] Other XR hand RT min 3V* No focal soft tissue abnormality. There appears to be avulsion fracture involving the base of the [employer] Other XR hand RT min 3V* distal phalanx of the thumb. Joint spaces appear maintained. No bony erosions. [employer] Other XR hand RT min 3V* XR/XR hand RT min 3V* [employer] Other XR hand RT min 3V* IMPRESSION: [employer] Other XR hand RT min 3V* AVULSION FRACTURE INVOLVING THE BASE OF THE DISTAL PHALANX OF THE THUMB. [employer] Other XR hand RT min 3V* Impression dictated by: Bulmaro Arias Jr., D.O.12/26/2022 1:44 PM [employer] Other XR hand RT min 3V* Dictation Location: [facility] [employer] Other XR hand RT min 3V* Transcribed By: LYNETTE 12/26/22 1344 [employer] Other XR hand RT min 3V* Dictated By: Bulmaro Arias Jr, DO 12/26/22 1343 [employer] Other XR hand RT min 3V* Signed By: [employer] Other XR hand RT min 3V* 12/26/[address] [place] [address] [employer] Other PAP ACOG PANEL 2: 22 to 30on 11-09-2022 . . Normal [facility] Comment on above: Performed By: #### [id number] ####[facility] [address] [place] [id number] Mancini Age Gdln ACOG Testing 21-29 Normal [facility] Comment on above: Performed By: #### [id number] ####[facility] [address] [place] [id number]. Donis Mancini DIAGNOSIS: Comment [facility] Comment on above: Result Comment: NEGA TIVE FOR INTRAEPITHELIAL LESION OR MALIGNANCY. Performed By: #### [id number] ####[facility] [address] [place], [place] [address]DrGene Mancini Methodology: Comment [facility] Comment on above: Result Comment: This liquid based ThinPrep(R) pap test was screened with the use of an image guided system. Performed By: #### [id number] ####[facility] [address] [place], [place] [address]Dr. Donis Mancini Note: Comment [facility] Comment on above: Result Comment: The Pap smear is a screening test designed to aid in the detection of premalignant and malignant conditions of the uterine cervix. It is not a diagnostic procedure and should not be used as the sole means of detecting cervical cancer. Both false-positive and false-negative reports do occur. . Performed By: #### [id number] ####[facility] [address] [place] [address]DrGene Mancini Performed by: Comment Normal [facility] Comment on above: Result Comment: Zuleima Lin Educational Interpreter (ASCP) Performed By: #### [id number] ####[facility] [address] [place] [address]Dr. Donis Mancini Reflex Criteria: Comment [facility] Comment on above: Result Comment: The HPV DNA reflex criteria were not met with this specimen result therefore, no HPV testing was performed. . Performed By: #### [id number] ####[facility] [address] [place] [id number]. Donis Mancini Specimen adequacy: Comment Normal [facility] Comment on above: Result Comment: Sati sfactory for evaluation. Endocervical and/or squamous metaplastic cells (endocervical component) are present. Performed By: #### 4 [id number] ####[facility] [address] [place] [address]Dr. Donis Mancini Cytology Cervical or vaginal smear or scraping studyOrdered By: Jael Nix on 11-02-2022 [facility] CBC AUTO DIFFon 08-11-2022 BASO # 0.0 103/ul Normal 0.0-0.1 [facility] Comment on above: Performed By: #### C T/NGNA #### [facility] [address] [place] [address] Dr. Donis Mancini Basophils/100 WBC (Bld) 0.2 % Normal 0.2-2.0 [facility] Comment on above: Performed By: #### C T/NGNA #### [facility] [address] [place] [address] Dr. Donis Mancini EO # 0.1 103/ul Normal 0.0-0.7 [facility] Comment on above: Performed By: #### C T/NGNA #### [facility] [address] [place] [address] Dr. Donis Mancini Eosinophils/100 WBC (Bld) 0.5 % Critically low 0.9-7.0 [facility] Comment on above: Performed By: #### C T/NGNA #### [facility] [address] [address] [address] Donis Mancini Erythrocyte distribution width (RBC) [Ratio] 12.5 % Normal 11.0-15.0 [facility] Comment on above: Performed By: #### C T/NGNA #### [facility] [address] [place] [address] Dr. Donis Mancini Hematocrit (Bld) [Volume fraction] 35.9 % Critically low 36.0-48.0 [facility] Comment on above: Performed By: #### C T/NGNA #### [facility] [address] [address] [address] Donis Mancini Hemoglobin (Bld) [Mass/Vol] 12.4 g/dL Normal 12.0-16.0 [facility] Comment on above: Result Comment: michelet ent delivered Performed By: #### C T/NGNA #### [facility] [address] [address] [address] Donis Mancini IG # 0.10 10e3/ul Critically high 0.00-0.03 [facility] [place] Comment on above: Performed By: #### C T/NGNA #### [facility] [address] [place] [address] Dr. Donis Mancini IG % 0.5 % Normal 0.0-0.5 [facility] Comment on above: Performed By: #### C T/NGNA #### [facility] [address] [address] [address] Donis Mancini LYMPH # 1.5 103/ul Normal 1.2-3.8 [facility] Comment on above: Performed By: #### C T/NGNA #### [facility] [address] [place] [address] Dr. Donis Mancini Lymphocytes/100 WBC (Bld) 7.6 % Critically low 20.5-60.0 [facility] Comment on above: Performed By: #### C T/NGNA #### [facility] [address] [place] [address] Dr. Donis Mancini MANUAL DIFF REQ NO Normal [facility] Comment on above: Performed By: #### C T/NGNA #### [facility] [address] [address] [address] Donis Mancini MCH (RBC) [Entitic mass] 32.2 pg Normal 26.7-34.0 [facility] Comment on above: Performed By: #### C T/NGNA #### [facility] [address] [place] [address] Dr. Donis Mancini MCHC (RBC) [Mass/Vol] 34.5 g/dL Normal 29.9-35.2 [facility] Comment on above: Performed By: #### C T/NGNA #### [facility] [address] [place] [address] Dr. Donis Mancini MCV (RBC) [Entitic vol] 93.2 fL Normal 81.0-99.0 [facility] Comment on above: Performed By: #### C T/NGNA #### [facility] [address] [place] [address] Dr. Donis Mancini MONO # 1.3 103/ul Critically high 0.3-0.8 [facility] Comment on above: Performed By: #### C T/NGNA #### [facility] [address] [place] [address] Dr. Donis Mancini Monocytes/100 WBC (Bld) 6.8 % Normal 1.7-12.0 [facility] Comment on above: Performed By: #### C T/NGNA #### [facility] [address] [place] [address] Dr. Dnois Mancnii NEUT # 16.2 103/ul Critically high 1.4-6.5 [facility] Comment on above: Performed By: #### C T/NGNA #### [facility] [address] [place] [address] Dr. Donis Mancini Neutrophils/100 WBC (Bld) 84.4 % Critically high 43.0-75.0 [facility] Comment on above: Performed By: #### C T/NGNA #### [facility] [address] [place] [address] Dr. Donis Mancini Platelet mean volume (Bld) [Entitic vol] 11.8 fL Normal 9.5-13.5 [facility] Comment on above: Performed By: #### C T/NGNA #### [facility] [address] [place] [address] Dr. Donis Mancini PLT 156 103/ul Normal 150-450 [facility] Comment on above: Performed By: #### C T/NGNA #### [facility] [address] [address] [address] Donis Mancini RBC 3.85 106/ul Critically low 4.20-5.40 [facility] Comment on above: Performed By: #### C T/NGNA #### [facility] [address] [address] [address] Donis Mancini WBC 19.2 103/ul Critically high 4.0-11.0 [facility] Comment on above: Performed By: #### C T/NGNA #### [facility] [address] [address] [address] Donis Mancini Covid-19 PCR ([facility])on 07-27 SARS-CoV-2 (COVID-19) RNA INESSA+probe Ql (Unsp spec) Not detected Normal NOT DETECTED [facility] Comment on above: Result Comment: When [...] for this test is supported by the Business Excellence Manager of Health and Human Service's declaration [...] Performed By: #### C VDTBH ####[facility] [address] [place], [place] [address]VtDr. Donis Mancini DRUG SCREEN RAPID (URINE)on 08-10-2022 AMP Negative Normal NEGATIVE [facility] Comment on above: Performed By: #### D RUGRPD ####[facility] [address] [place], [place] [address]AlGene Mancini BAR Negative Normal NEGATIVE [facility] Comment on above: Performed By: #### D RUGRPD ####[facility] [address] [place] [address]Dr. Donis Mancini BUP Negative Normal NEGATIVE [facility] Comment on above: Performed By: #### D RUGRPD ####[facility] [address] [place] [address]Dr. Donis Mancini BZO Negative Normal NEGATIVE [facility] Comment on above: Performed By: #### D RUGRPD ####[facility] [address] [place], [place] [address]Dr. Donis Mancini ALEXA Negative Normal NEGATIVE [facility] Comment on above: Performed By: #### D RUGRPD ####[facility] [address] [place], [place] [address]Dr. Donis Mancini CUT-OFFS SEE BELOW Normal [facility] Comment on above: Result Comment: AMP [...] Performed By: #### D RUGRPD ####[facility] [address] [place], [place] [address]Dr. Donis Mancini DRUG CUT HEADER DRUG CLASS TEST SYSTEM CUT-OFF CONCENTRATIONS ARE FOLLOWS: Normal [facility] Comment on above: Performed By: #### D RUGRPD ####[facility] [address] [place], [place] [address]Dr. Donis Mancini mAMP Negative Normal NEGATIVE [facility] Comment on above: Performed By: #### D RUGRPD ####[facility] [address] [place], [place] [address]Dr. Donis Mancini MTD Negative Normal NEGATIVE [facility] Comment on above: Performed By: #### D RUGRPD ####[facility] [address] [place] [phone]. Yijavi Mancini OPI Negative Normal NEGATIVE [facility] Comment on above: Performed By: #### D RUGRPD ####[facility] [address] [place] [phone]. Yijavi Mancini OXY Negative Normal NEGATIVE [facility] Comment on above: Performed By: #### D RUGRPD ####[facility] [address] [place] [phone]. Donis Mancini PCP Negative Normal NEGATIVE [facility] Comment on above: Performed By: #### D RUGRPD ####[facility] [address] [place] [phone]. Donis Mancini PPX Negative Normal NEGATIVE [facility] Comment on above: Performed By: #### D RUGRPD ####[facility] [address] [place] [phone]. Donis Mancini TCA Negative Normal NEGATIVE [facility] Comment on above: Performed By: #### D RUGRPD ####[facility] [address] [place] [phone]. Donis Mancini THC Negative Normal NEGATIVE [facility] Comment on above: Performed By: #### D RUGRPD ####[facility] [address] [place] [id number]. Donis Mancini TYPE AND SCREENon 08-10-2022 TYPE AND SCREEN Negative Normal [facility] Comment on above: Performed By: #### T NS ####[facility] [address] [place], [place] [address]Dr. Donis Mancini US PREG BIOPHY W NON [...] Date: 2022-08-10 07:18 Normal [facility] US PREG GROWTHon 08-10-2022 US PREG [...] Date: 2022-08-10 07:16 Normal [facility] CBC AUTO DIFFon 08-09-2022 BASO # 0.0 103/ul Normal 0.0-0.1 [facility] Comment on above: Performed By: #### C BC ####[facility] [address] [place], [place] [address]DrGene Mancini Basophils/100 WBC (Bld) 0.2 % Normal 0.2-2.0 [facility] Comment on above: Performed By: #### C BC ####[facility] [address] [place], [place] [address]DrGene Mancini EO # 0.4 103/ul Normal 0.0-0.7 [facility] Comment on above: Performed By: #### C BC ####[facility] [address] [place], [place] [address]Dr. Donis Mancini Eosinophils/100 WBC (Bld) 2.8 % Normal 0.9-7.0 [facility] Comment on above: Performed By: #### C BC ####[facility] [address] [place] [address]Dr. Donis Mancini Erythrocyte distribution width (RBC) [Ratio] 12.2 % Normal 11.0-15.0 [facility] Comment on above: Performed By: #### C BC ####[facility] [address] [place] [address]Dr. Donis Mancini Hematocrit (Bld) [Volume fraction] 41.4 % Normal 36.0-48.0 [facility] Comment on above: Performed By: #### C BC ####[facility] [address] [place] [address]Dr. Donis Mancini Hemoglobin (Bld) [Mass/Vol] 14.4 g/dL Normal 12.0-16.0 [facility] Comment on above: Performed By: #### C BC ####[facility] [address] [place], [place] [address]Dr. Donis Mancini IG # 0.06 10e3/ul Critically high 0.00-0.03 [facility] [place] Comment on above: Performed By: #### C BC ####[facility] [address] [place], [place] [address]Dr. Donis Mancini IG % 0.5 % Normal 0.0-0.5 [facility] Comment on above: Performed By: #### C BC ####[facility] [address] [place], [place] [address]Dr. Donis Mancini LYMPH # 1.5 103/ul Normal 1.2-3.8 [facility] Comment on above: Performed By: #### C BC ####[facility] [address] [place], [place] [address]Dr. Donis Mancini Lymphocytes/100 WBC (Bld) 11.7 % Critically low 20.5-60.0 [facility] Comment on above: Performed By: #### C BC ####[facility] [address] [place] [address]Dr. Donis Live MANUAL DIFF REQ NO Normal [facility] Comment on above: Performed By: #### C BC ####[facility] [address] [place] [address]Dr. Donis Mancini MCH (RBC) [Entitic mass] 31.9 pg Normal 26.7-34.0 [facility] Comment on above: Performed By: #### C BC ####[facility] [address] [place], [place] [address]Dr. Donis Live MCHC (RBC) [Mass/Vol] 34.8 g/dL Normal 29.9-35.2 [facility] Comment on above: Performed By: #### C BC ####[facility] [address] [place], [place] [address]Dr. Donis Live MCV (RBC) [Entitic vol] 91.8 fL Normal 81.0-99.0 [facility] Comment on above: Performed By: #### C BC ####[facility] [address] [place], [place] [address]Dr. Donis Live MONO # 1.0 103/ul Critically high 0.3-0.8 [facility] Comment on above: Performed By: #### C BC ####[facility] [address] [place], [place] [address]Dr. Laceyjavi Mancini Monocytes/100 WBC (Bld) 7.5 % Normal 1.7-12.0 [facility] Comment on above: Performed By: #### C BC ####[facility] [address] [place] [address]Dr. Laceyjavi Live NEUT # 10.0 103/ul Critically high 1.4-6.5 [facility] Comment on above: Performed By: #### C BC ####[facility] [address] [place], [place] [address]Dr. Donis Mancini Neutrophils/100 WBC (Bld) 77.3 % Critically high 43.0-75.0 [facility] Comment on above: Performed By: #### C BC ####[facility] [address] [place] [id number]. Donis Mancini Platelet mean volume (Bld) [Entitic vol] 11.6 fL Normal 9.5-13.5 [facility] Comment on above: Performed By: #### C BC ####[facility] [address] [place] [id number]. Dnois Mancini PLT 184 103/ul Normal 150-450 [facility] Comment on above: Performed By: #### C BC ####[facility] [address] [place] [address]Dr. Donis Mancini RBC 4.51 106/ul Normal 4.20-5.40 [facility] Comment on above: Performed By: #### C BC ####[facility] [address] [place] [address]Dr. Donis Mancini WBC 12.9 103/ul Critically high 4.0-11.[address] [facility] Comment on above: Performed By: #### C BC ####[facility] [address] [place] [address]Dr. Donis Mancini LDHon 08-09-2022 LDH 167 U/L Normal 81-234 [facility] Comment on above: Performed By: #### C T/NGNA #### [facility] [address] [address] [address] Donis Mancini PROF 14(COMP METB)on 022 Albumin [Mass/Vol] 2.7 g/dL Critically low 3.4-5.0 [facility] Comment on above: Performed By: #### C T/NGNA #### [facility] [address] [address] [address] Donis Mancini Albumin/Globulin [Mass ratio] 0.6 {ratio} Normal [facility] Comment on above: Performed By: #### C T/NGNA #### [facility] [address] [address] [address] Donis Mancini ALP [Catalytic activity/Vol] 176 U/L Critically high 46-116 [facility] Comment on above: Performed By: #### C T/NGNA #### [facility] [address] [address] [address] Donis Mancini ALT [Catalytic activity/Vol] 20 U/L Normal 14-59 [facility] Comment on above: Performed By: #### C T/NGNA #### [facility] [address] [address] [address] Donis Mancini Anion gap [Moles/Vol] 12.9 mmol/L Normal [facility] Comment on above: Performed By: #### C T/NGNA #### [facility] [address] [place] [address] Dr. Donis Mancini AST [Catalytic activity/Vol] 20 U/L Normal 15-37 [facility] Comment on above: Performed By: #### C T/NGNA #### [facility] [address] [place] [address] Dr. Donis Mancini Bilirubin [Mass/Vol] 0.1 mg/dL Critically low 0.2-1.0 [facility] Comment on above: Performed By: #### C T/NGNA #### [facility] [address] [place] [address] Dr. Donis Mancini Calcium [Mass/Vol] 9.1 mg/dL Normal 8.5-10.1 [facility] Comment on above: Performed By: #### C T/NGNA #### [facility] [address] [place] [address] Dr. Donis Mancini Chloride [Moles/Vol] 104 mmol/L Normal 98-107 [facility] Comment on above: Performed By: #### C T/NGNA #### [facility] [address] [place] [address] Dr. Donis Mancini CO2 [Moles/Vol] 22.9 mmol/L Normal 21.0-32.[address] [facility] Comment on above: Performed By: #### C T/NGNA #### [facility] [address] [place] [address] Dr. Donis Mancini Creatinine [Mass/Vol] 0.43 mg/dL Critically low 0.55-1.02 [facility] Comment on above: Performed By: #### C T/NGNA #### [facility] [address] [address] [address] Donis Mancini EGFR-AF SINGAPOREAN >60 Normal >=[address] [facility] Comment on above: Performed By: #### C T/NGNA #### [facility] [address] [address] [address] Donis Mancini EGFR-NON AF SINGAPOREAN >60 Normal >=60 [facility] Comment on above: Performed By: #### C T/NGNA #### [facility] [address] [address] [address] Donis Mancini Globulin (S) [Mass/Vol] 4.2 g/dL Normal [facility] Comment on above: Performed By: #### C T/NGNA #### [facility] [address] [place] [address] Dr. Donis Mancini Glucose [Mass/Vol] 95 mg/dL Normal 74-106 [facility] Comment on above: Performed By: #### C T/NGNA #### [facility] [address] [address] [address] Donis Mancini Potassium [Moles/Vol] 3.8 mmol/L Normal 3.5-5.1 [facility] Comment on above: Performed By: #### C T/NGNA #### [facility] [address] [address] [address] Donis Mancini Protein [Mass/Vol] 6.9 g/dL Normal 6.4-8.2 [facility] Comment on above: Performed By: #### C T/NGNA #### [facility] [address] [address] [address] Donis Mancini Sodium [Moles/Vol] 136 mmol/L Normal 136-145 [facility] Comment on above: Performed By: #### C T/NGNA #### [facility] [address] [address] [address] Donis Mancini Urea nitrogen [Mass/Vol] 10.0 mg/dL Normal 7.0-18.0 [facility] Comment on above: Performed By: #### C T/NGNA #### [facility] [address] [place] [address] Dr. Donis Mancini Urea nitrogen/Creatinine [Mass ratio] 23.3 mg/mg Normal [facility] Comment on above: Performed By: #### C T/NGNA #### [facility] [address] [place] [address] Dr. Donis Mancini URIC ACID SERUMon 08-09-2022 Urate [Mass/Vol] 3.6 mg/dL Normal 2.6-6.[address] [facility] Comment on above: Performed By: #### C T/NGNA #### [facility] [address] [place] [address] Dr. Donis Mancini CBC AUTO DIFFon 08-07-2022 BASO # 0.0 103/ul Normal 0.0-0.1 [facility] Comment on above: Performed By: #### U AMIC #### [facility] [address] [place] [address] Dr. Donis Mancini Basophils/100 WBC (Bld) 0.2 % Normal 0.2-2.0 [facility] Comment on above: Performed By: #### U AMIC #### [facility] [address] [place] [address] Dr. Donis Mancini EO # 0.2 103/ul Normal 0.0-0.7 [facility] Comment on above: Performed By: #### U AMIC #### [facility] [address] [place] [address] Dr. Donis Mancini Eosinophils/100 WBC (Bld) 1.8 % Normal 0.9-7.0 [facility] Comment on above: Performed By: #### U AMIC #### [facility] [address] [place] [address] Dr. Donis Mancini Erythrocyte distribution width (RBC) [Ratio] 12.3 % Normal 11.0-15.0 [facility] Comment on above: Performed By: #### U AMIC #### [facility] [address] [place] [address] Dr. Donis Mancini Hematocrit (Bld) [Volume fraction] 45.7 % Normal 36.0-48.0 [facility] Comment on above: Performed By: #### U AMIC #### [facility] [address] [address] [address] Donis Mancini Hemoglobin (Bld) [Mass/Vol] 16.0 g/dL Normal 12.0-16.0 [facility] Comment on above: Performed By: #### U AMIC #### [facility] [address] [address] [address] Donis Mancini IG # 0.07 10e3/ul Critically high 0.00-0.03 [facility] [place] Comment on above: Performed By: #### U AMIC #### [facility] [address] [address] [address] Donis Mancini IG % 0.5 % Normal 0.0-0.5 [facility] Comment on above: Performed By: #### U AMIC #### [facility] [address] [address] [address] Donis Mancini LYMPH # 1.5 103/ul Normal 1.2-3.8 [facility] Comment on above: Performed By: #### U AMIC #### [facility] [address] [address] [address] Donis Mancini Lymphocytes/100 WBC (Bld) 11.2 % Critically low 20.5-60.0 [facility] Comment on above: Performed By: #### U AMIC #### [facility] [address] [address] [address] Donis Mancini MANUAL DIFF REQ NO Normal [facility] Comment on above: Performed By: #### U AMIC #### [facility] [address] [address] [address] Donis Mancini MCH (RBC) [Entitic mass] 32.0 pg Normal 26.7-34.0 [facility] Comment on above: Performed By: #### U AMIC #### [facility] [address] [address] [address] Donis Mancini MCHC (RBC) [Mass/Vol] 35.0 g/dL Normal 29.9-35.2 [facility] Comment on above: Performed By: #### U AMIC #### [facility] [address] [address] [address] Donis Mancini MCV (RBC) [Entitic vol] 91.4 fL Normal 81.0-99.0 [facility] Comment on above: Performed By: #### U AMIC #### [facility] [address] [place] [address] Dr. Donis Mancini MONO # 0.9 103/ul Critically high 0.3-0.8 [facility] Comment on above: Performed By: #### U AMIC #### [facility] [address] [place] [address] Dr. Donis Mancini Monocytes/100 WBC (Bld) 6.3 % Normal 1.7-12.0 [facility] Comment on above: Performed By: #### U AMIC #### [facility] [address] [place] [address] Dr. Donis Mancini NEUT # 10.9 103/ul Critically high 1.4-6.5 [facility] Comment on above: Performed By: #### U AMIC #### [facility] [address] [place] [address] Dr. Donis Mancini Neutrophils/100 WBC (Bld) 80.0 % Critically high 43.0-75.0 [facility] Comment on above: Performed By: #### U AMIC #### [facility] [address] [place] [address] Dr. Donis Mancini Platelet mean volume (Bld) [Entitic vol] 11.5 fL Normal 9.5-13.5 [facility] Comment on above: Performed By: #### U AMIC #### [facility] [address] [place] [address] Dr. Donis Mancini PLT 182 103/ul Normal 150-450 [facility] Comment on above: Performed By: #### U AMIC #### [facility] [address] [place] [address] Dr. Donis Mancini RBC 5.00 106/ul Normal 4.20-5.40 [facility] Comment on above: Performed By: #### U AMIC #### [facility] [address] [address] [address] Donis Mancini WBC 13.6 103/ul Critically high 4.0-11.[address] [facility] Comment on above: Performed By: #### U AMIC #### [facility] [address] [address] [address] Donis Mancini LDHon 08-07-2022 LDH 171 U/L Normal 81-234 [facility] Comment on above: Performed By: #### C MP, URIC, LDH ####[facility] [address] [address]DrGene Mancini PROF 14(COMP METB)on 022 Albumin [Mass/Vol] 2.9 g/dL Critically low 3.4-5.0 [facility] Comment on above: Performed By: #### C MP, URIC, LDH ####[facility] [address] [address]DrGene Mancini Albumin/Globulin [Mass ratio] 0.6 {ratio} Normal [facility] Comment on above: Performed By: #### C MP, URIC, LDH ####[facility] [address] [address]DrGene Mancini ALP [Catalytic activity/Vol] 192 U/L Critically high 46-116 [facility] Comment on above: Performed By: #### C MP, URIC, LDH ####[facility] [address] [address]DrGene Mancini ALT [Catalytic activity/Vol] 23 U/L Normal 14-59 [facility] Comment on above: Performed By: #### C MP, URIC, LDH ####[facility] [address] [address]DrGene Mancini Anion gap [Moles/Vol] 14.4 mmol/L Normal [facility] Comment on above: Performed By: #### C MP, URIC, LDH ####[facility] [address] [address]Dr. Donis Mancini AST [Catalytic activity/Vol] 23 U/L Normal 15-37 [facility] Comment on above: Performed By: #### C MP, URIC, LDH ####[facility] [address] [address]Dr. Donis Mancini Bilirubin [Mass/Vol] 0.2 mg/dL Normal 0.2-1.0 [facility] Comment on above: Performed By: #### C MP, URIC, LDH ####[facility] [address] [place], [place] [address]Dr. Donis Mancini Calcium [Mass/Vol] 9.4 mg/dL Normal 8.5-10.1 [facility] Comment on above: Performed By: #### C MP, URIC, LDH ####[facility] [address] [place], [place] [address]Dr. Donis Mancini Chloride [Moles/Vol] 104 mmol/L Normal 98-107 [facility] Comment on above: Performed By: #### C MP, URIC, LDH ####[facility] [address] [place], [place] [address]Dr. Donis Mancini CO2 [Moles/Vol] 21.7 mmol/L Normal 21.0-32.0 [facility] Comment on above: Performed By: #### C MP, URIC, LDH ####[facility] [address] [place], [place] [address]Dr. Donis Mancini Creatinine [Mass/Vol] 0.46 mg/dL Critically low 0.55-1.02 [facility] Comment on above: Performed By: #### C MP, URIC, LDH ####[facility] [address] [address]Dr. Donis Mancini EGFR-AF SINGAPOREAN >60 Normal >=60 [facility] Comment on above: Performed By: #### C MP, URIC, LDH ####[facility] [address] [place], [place] [address]Dr. Donis Mancini EGFR-NON AF SINGAPOREAN >60 Normal >=60 [facility] Comment on above: Performed By: #### C MP, URIC, LDH ####[facility] [address] [address]Dr. Donis Mancini Globulin (S) [Mass/Vol] 4.6 g/dL Normal [facility] Comment on above: Performed By: #### C MP, URIC, LDH ####[facility] [address] [address]Dr. Donis Mancini Glucose [Mass/Vol] 89 mg/dL Normal 74-106 [facility] Comment on above: Performed By: #### C MP, URIC, LDH ####[facility] [address] [address]Dr. Donis Mancini Potassium [Moles/Vol] 4.1 mmol/L Normal 3.5-5.1 [facility] Comment on above: Performed By: #### C MP, URIC, LDH ####[facility] [address] [place], [place] [address]Dr. Donis Mancini Protein [Mass/Vol] 7.5 g/dL Normal 6.4-8.2 [facility] Comment on above: Performed By: #### C MP, URIC, LDH ####[facility] [address] [place], [place] [address]Dr. Donis Mancini Sodium [Moles/Vol] 136 mmol/L Normal 136-145 [facility] Comment on above: Performed By: #### C MP, URIC, LDH ####[facility] [address] [place], [place] [address]Dr. Donis Mancini Urea nitrogen [Mass/Vol] 8.0 mg/dL Normal 7.0-18.0 [facility] Comment on above: Performed By: #### C MP, URIC, LDH ####[facility] [address] [place], [place] [address]Dr. Donis Mancini Urea nitrogen/Creatinine [Mass ratio] 17.4 mg/mg Normal [facility] Comment on above: Performed By: #### C MP, URIC, LDH ####[facility] [address] [place], [place] [address]Dr. Donis Mancini PROTIMEon 08-07-2022 INR Coag (PPP) [Relative time] {INR} Normal [facility] Comment on above: Performed By: #### U AMIC #### [facility] [address] [place] [address] Dr. Donis Mancini INR GUIDELINES SEE BELOW Normal [facility] Comment on above: Result Comment: NICCI RED INR: 2.0 - 3.0 CONDITIONS NOT LISTED BELOW 2.5 - 3.5 FOR PROSTHETIC HEART VALVE REPLACEMENT 2.5 - 3.5 RECURRENT THROMBOSIS Performed By: #### U AMIC #### [facility] [address] [place] [address] Dr. Donis Mancini PT Coag (PPP) [Time] 9.8 s Normal 9.0-11.6 [facility] Comment on above: Performed By: #### U AMIC #### [facility] [address] [place] [address] Dr. Donis Mancini PTTon 08-07-2022 aPTT Coag (Bld) [Time] 28.5 s Normal 22.3-36.2 [facility] Comment on above: Performed By: #### U AMIC #### [facility] [address] [place] [address] Dr. Donis Mancini UA (CLEAN/CATCH) WEB MOBILE DESIGNER/MICRO I F IND.on 08-07-2022 Bilirubin Ql (U) Negative Normal NEGATIVE [facility] Comment on above: Performed By: #### U AMIC #### [facility] [address] [place] [address] Dr. Donis Mancini Clarity (U) CLEAR Normal CLEAR [facility] Comment on above: Performed By: #### U AMIC #### [facility] [address] [place] [address] Dr. Donis Mancini Color (U) LT. YELLOW Normal YELLOW [facility] Comment on above: Performed By: #### U AMIC #### [facility] [address] [place] [address] Dr. Donis Mancini Glucose Ql (U) Negative Normal NEGATIVE [facility] Comment on above: Performed By: #### U AMIC #### [facility] [address] [address] [address] Donis Mancini Hemoglobin Ql (U) Negative Normal NEGATIVE [facility] [place] Comment on above: Performed By: #### U AMIC #### [facility] [address] [address] [address] Donis Mancini Ketones Ql (U) Negative Normal NEGATIVE [facility] Comment on above: Performed By: #### U AMIC #### [facility] [address] [address] [address] Donis Mancini LEUKOCYTES Negative Normal NEGATIVE [facility] Comment on above: Performed By: #### U AMIC #### [facility] [address] [address] [address] Donis Mancini Nitrite Ql (U) Negative Normal NEGATIVE [facility] [place] Comment on above: Performed By: #### U AMIC #### [facility] [address] [place] [address] Dr. Donis Mancini pH (U) 7.0 [pH] Normal 5-9 [facility] Comment on above: Performed By: #### U AMIC #### [facility] [address] [address] [address] Donis Mancini SPEC GRAVITY <=1.005 Abnormal 1.005-<=1.02 5 [facility] Comment on above: Performed By: #### U AMIC #### [facility] [address] [place] [address] Dr. Donis Mancini UA PROTEIN Negative Normal NEGATIVE/ TRACE [facility] Comment on above: Performed By: #### U AMIC #### [facility] [address] [place] [address] Dr. Donis Mancini UR MICRO IND NOT INDICATED Normal [facility] Comment on above: Performed By: #### U AMIC #### [facility] [address] [place] [address] Dr. Donis Mancini Urobilinogen Qn (U) 0.2 {Sarah'U}/dL Normal 0.2 - 1. 0 [facility] Comment on above: Performed By: #### U AMIC #### [facility] [address] [address] [address] Donis Mancini URIC ACID SERUMon 08-07-2022 Urate [Mass/Vol] 3.8 mg/dL Normal 2.6-6.[address] [facility] Comment on above: Performed By: #### C MP, URIC, LDH ####[facility] [address] [place], [place] [address]VeDr. Donis Mancini URINE T PROTEIN CREAT RATIOo n 08-07-2022 UR TOTAL PROTEIN <6.0 Normal <=12.[address] [facility] Comment on above: Performed By: #### C T/NGNA #### [facility] [address] [address] [address] Donis Mancini URINE CREAT 13.45 mg/dL Critically low 20.00-300.00 [facility] Comment on above: Performed By: #### C T/NGNA #### [facility] [address] [place] [address] Dr. Donis Mancini US PREG BIOPHY W [...] Date: 2022-08-01 08:31 Normal [facility] CHLAMYDIA/GONOCOCCUS INESSA (SW AB/URINE/PAPon 07-31-2022 Chlamydia trachomatis, INESSA Negative Normal Negative [facility] Comment on above: Performed By: #### C T/NGNA #### [facility] [address] [place] [address] Dr. Donis Mancini Neisseria gonorrhoeae, INESSA Negative Normal Negative [facility] Comment on above: Performed By: #### C T/NGNA #### [facility] [address] [address] [address] Donis Mancini VAGINITIS/VAGINOSIS DNA PROB Domenic 07-31-2022 Simeon species Negative Normal Negative [facility] Comment on above: Performed By: #### V AGINT ####[facility] [address] [address]Dr. Donis Mancini Gardnerella vaginalis Negative Normal Negative [facility] Comment on above: Performed By: #### V AGINT ####[facility] [address] [address]Dr. Donis Mancini Trichomonas vaginalis Negative Normal Negative [facility] Comment on above: Performed By: #### V AGINT ####[facility] [address] [address]Dr. Donis Mancini GROUP B STREP CULTUREon S. agalactiae Ag Ql (Unsp spec) Culture Observations: NEGATIVE FOR GROUP B STREPTOCOCCUS. Normal [facility] Comment on above: Performed By: #### G BSCX #### [facility] [address] [place] [address] Dr. Donis Mancini US PREG BIOPHY W [...] Date: 2022-07-25 09:41 Normal [facility] US PREG GROWTHon 07-11-2022 US PREG [...] Date: 2022-07-11 19:28 Normal [facility] Covid-19 PCR (CVDTB)on 06-26 SARS-CoV-2 (COVID-19) RNA INESSA+probe Ql (Unsp spec) Not detected Normal NOT DETECTED [facility] Comment on above: Result Comment: When [...] for this test is supported by the Business Excellence Manager of Health and Human Service's declaration [...] longer be used). Performed By: #### C T/TARAS #### [facility] [address] [place] [address] Dr. Donis Mancini GTT 3 HR PREGon 06-03-2022 Glucose [Mass/Vol] 94 mg/dL Normal 74-106 [facility] Comment on above: Performed By: #### U AMIC #### [facility] [address] [address] [address] Donis Mancini Glucose [Mass/Vol] 147 mg/dL Normal [facility] Comment on above: Performed By: #### U AMIC #### [facility] [address] [address] [address] Donis Macnini Glucose [Mass/Vol] 159 mg/dL Normal [facility] Comment on above: Performed By: #### U AMIC #### [facility] [address] [address] [address] Donis Mancini Glucose [Mass/Vol] 151 mg/dL Normal [facility] Comment on above: Performed By: #### U AMIC #### [facility] [address] [address] [address] Donis Mancini GLUCOSE - 1HRon 05-21-2022 Glucose [Mass/Vol] 141 mg/dL Critically high 74-106 [facility] Comment on above: Performed By: #### U AMIC #### [facility] [address] [address] [address] Donis Mancini HEMOGRAM AND PLATELon 2021 Hematocrit (Bld) [Volume fraction] 39.1 % Normal 36.0-48.0 [facility] Comment on above: Performed By: #### U AMIC #### [facility] [address] [address] [address] Donis Mancini Hemoglobin (Bld) [Mass/Vol] 13.1 g/dL Normal 12.0-16.0 [facility] Comment on above: Performed By: #### U AMIC #### [facility] [address] [address] [address] Donis Mancini MCH (RBC) [Entitic mass] 32.3 pg Normal 26.7-34.0 [facility] Comment on above: Performed By: #### U AMIC #### [facility] [address] [address] [address] Donis Mancini MCHC (RBC) [Mass/Vol] 33.5 g/dL Normal 29.9-35.2 [facility] Comment on above: Performed By: #### U AMIC #### [facility] [address] [address] [address] Donis Mancini MCV (RBC) [Entitic vol] 96.5 fL Normal 81.0-99.0 [facility] Comment on above: Performed By: #### U AMIC #### [facility] [address] [address] [address] Donis Mancini PLT 220 103/ul Normal 150-450 [facility] Comment on above: Performed By: #### U AMIC #### [facility] [address] [address] [address] Donis Mancini RBC 4.05 106/ul Critically low 4.20-5.[address] [facility] Comment on above: Performed By: #### U AMIC #### [facility] [address] [place] [address] Dr. Donis Mancini WBC 12.8 103/ul Critically high 4.0-11.[address] [facility] Comment on above: Performed By: #### U AMIC #### [facility] [address] [place] [address] Dr. Donis Mancini US PREG BIOPHYSICAL NO [...] Date: 2022-05-11 06:25 Normal [facility] CULTURE URINEon 05-10-2022 CULTURE URINE Culture Observations: MODERATE GROWTH OF MIXED GENITAL RAMBO. NO POTENTIAL PATHOGENS SEEN. Normal [facility] Comment on above: Performed By: #### U RCX #### [facility] [address] [place] [address] Dr. Donis Mancini UA RANDOM W/MICROSCOPICon BACTERIA LARGE Abnormal NONE SEEN [facility] Comment on above: Performed By: #### U AMIC ####[facility] [address] [address]Dr. Donis Mancini Bilirubin Ql (U) Negative Normal NEGATIVE [facility] Comment on above: Performed By: #### U AMIC ####[facility] [address] [place], [place] [address]Dr. Donis Mancini CAST NONE SEEN Normal NONE SEEN [facility] Comment on above: Performed By: #### U AMIC ####[facility] [address] [place], [place] [address]Dr. Donis Mancini Clarity (U) CLEAR Normal CLEAR [facility] Comment on above: Performed By: #### U AMIC ####[facility] [address] [place], [place] [address]Dr. Donis Mancini Color (U) YELLOW Normal YELLOW [facility] Comment on above: Performed By: #### U AMIC ####[facility] [address] [place], [place] [address]Dr. Donis Mancini Crystals LM Nom (Urine sed) NONE SEEN Normal NONE SEEN [facility] Comment on above: Performed By: #### U AMIC ####[facility] [address] [place], [place] [address]Dr. Donis Mancini Epithelial cells LM Ql (Urine sed) MODERATE Abnormal NONE SEEN /RARE [facility] Comment on above: Performed By: #### U AMIC ####[facility] [address] [place], [place] [address]Dr. Donis Mancini Glucose Ql (U) 250 mg/dl Abnormal NEGATIVE [facility] [place] Comment on above: Performed By: #### U AMIC ####[facility] [address] [place], [place] [address]Dr. Donis Mancini Hemoglobin Ql (U) TRACE-INTACT Abnormal NEGATIVE [facility] Comment on above: Performed By: #### U AMIC ####[facility] [address] [place], [place] [address]Dr. Laceyjavi Mancini Ketones Ql (U) Negative Normal NEGATIVE [facility] [place] Comment on above: Performed By: #### U AMIC ####[facility] [address] [address]Dr. Donis Mancini LEUKOCYTES LARGE Abnormal NEGATIVE [facility] Comment on above: Performed By: #### U AMIC ####[facility] [address] [address]Dr. Donis Live MUCOUS NONE SEEN Normal NONE SEEN [facility] Comment on above: Performed By: #### U AMIC ####[facility] [address] [address]Dr. Donis Live Nitrite Ql (U) Negative Normal NEGATIVE [facility] [place] Comment on above: Performed By: #### U AMIC ####[facility] [address] [place], [place] [address]Dr. Donis Mancini pH (U) 6.0 [pH] Normal 5-9 [facility] Comment on above: Performed By: #### U AMIC ####[facility] [address] [place], [place] [address]Dr. Donis Mancini RBC 2-5 Abnormal 0-2 [facility] Comment on above: Performed By: #### U AMIC ####[facility] Pygfnkrxy[address] [place], [place] [address]Dr. Laceyjavi Mancini SPEC GRAVITY <=1.005 Abnormal 1.005-<=1.02 5 [facility] Comment on above: Performed By: #### U AMIC ####[facility] I[address] [place], [place] [address]Dr. Donis Mancini UA PROTEIN Negative Normal NEGATIVE/ TRACE The [facility] Comment on above: Performed By: #### U AMIC ####[facility] Wejakyikxm[address] [place], [place] [address]Dr. Donis Mancini Urobilinogen Qn (U) 0.2 {Sarah'U}/dL Normal 0.2 - 1. 0 The [facility] Comment on above: Performed By: #### U AMIC ####[facility] Incioythml[address] [place], [place] [address]Dr. Donis Mancini WBC 10-20 Abnormal NONE SEEN The [facility] Comment on above: Performed By: #### U AMIC ####[facility] Lcnlrmajyl[address] [place], [place] [address]Dr. Donis Mancini CULTURE URINEon 04-27-2022 CULTURE URINE Culture Observations: LIGHT GROWTH OF MIXED GENITAL RAMBO. NO POTENTIAL PATHOGENS SEEN. Normal The [facility] Comment on above: Performed By: #### U RCX ####[facility] Cplsjmziyi[address] [place], [place] [address]Dr. Donis Mancini UA (CLEAN/CATCH) WEB MOBILE DESIGNER/MICRO I F IND.on 04-27-2022 Bilirubin Ql (U) Negative Normal NEGATIVE The [facility] Comment on above: Performed By: #### U ACSWENDY ICRO ####[facility] Diebusgqdc[address] [place], [place] [address]Dr. Donis Mancini Clarity (U) CLEAR Normal CLEAR The [facility] Comment on above: Performed By: #### U ACSWENDY ICRO ####[facility] Kpqqjguiuz[address] [place], [place] [address]Dr. Donis Mancini Color (U) LT. YELLOW Normal YELLOW The [facility] Comment on above: Performed By: #### U ACSWENDY ICRO ####[facility] Ojjaldlhvd[address] [place], [place] [address]Dr. Donis Mancini Glucose Ql (U) Negative Normal NEGATIVE The [facility] [place] Comment on above: Performed By: #### U ACSWENDY ICRO ####[facility] Wsjerfphgg[address] [place], [place] [address]Dr. Donis Mancini Hemoglobin Ql (U) Negative Normal NEGATIVE The [facility] Comment on above: Performed By: #### U ACSWENDY UMICRO ####[facility] Iyyms[address]emtz[address] [place], [place] [address]Dr. Donis Mancini Ketones Ql (U) Negative Normal NEGATIVE The [facility] [place] Comment on above: Performed By: #### U ACSWENDY UMICRO ####[facility] Plowewdxps[address] [place], [place] [address]Dr. Donis Mancini LEUKOCYTES SMALL Abnormal NEGATIVE The [facility] Comment on above: Performed By: #### U ACSWENDY UMICRO ####[facility] [address] [place] [address]Dr. Donis Mancini Nitrite Ql (U) Negative Normal NEGATIVE The [facility] [place] Comment on above: Performed By: #### U ACSWENDY, UMICRO ####[facility] [address] [place] [address]Dr. Donis Mancini pH (U) 7.0 [pH] Normal 5-9 The [facility] Comment on above: Performed By: #### U ACSWENDY UMICRO ####[facility] [address] [place] [address]Dr. Donis Mancini SPEC GRAVITY 1.015 Normal 1.005-<=1.02 5 [facility] Comment on above: Performed By: #### U ACSWENDY UMICRO ####[facility] Awnb[address]zheq[address] [place], [place] [address]Dr. Donis Mancini UA PROTEIN Negative Normal NEGATIVE/ TRACE The [facility] Comment on above: Performed By: #### U ACSWENDY UMICRO ####[facility] Naouj[address]wq[address] [place], [place] [address]Dr. Donis Mancini UR MICRO IND INDICATED Normal [facility] Comment on above: Performed By: #### U ACSWENDY, UMICRO ####[facility] [address] [place] [address]Dr. Donis Mancini Urobilinogen Qn (U) 0.2 {Sarah'U}/dL Normal 0.2 - 1. 0 [facility] Comment on above: Performed By: #### U ACSWENDY, UMICRO ####[facility] [address] [place] [address]Dr. Donis Mancini URINE MICROSCOPIC ONLYon BACTERIA MODERATE Abnormal NONE SEEN The [facility] Comment on above: Performed By: #### U ACSWENDY, UMICRO ####[facility] [address] [place] [address]Dr. Donis Mancini Bacteria identified Cx Nom (U) INDICATED Normal The [facility] Comment on above: Performed By: #### U ACSIND, UMICRO ####[facility] [address] [place] [address]Dr. Donis Mancini CAST NONE SEEN Normal NONE SEEN The [facility] Comment on above: Performed By: #### U ACSIND, UMICRO ####[facility] [address] [place] [address]Dr. Donis Mancini Crystals LM Nom (Urine sed) NONE SEEN Normal NONE SEEN The [facility] Comment on above: Performed By: #### U ACSIND, UMICRO ####[facility] [address] [place] [address]Dr. Donis Mancini Epithelial cells LM Ql (Urine sed) MODERATE Abnormal NONE SEEN /RARE The [facility] Comment on above: Performed By: #### U ACSIND, UMICRO ####[facility] [address] [place] [address]Dr. Donis Mancini MUCOUS NONE SEEN Normal NONE SEEN The [facility] Comment on above: Performed By: #### U ACSIND, UMICRO ####[facility] [address] [place] [address]Dr. Donis Mancini RBC NONE SEEN Abnormal 0-2 The [facility] Comment on above: Performed By: #### U ACSIND, UMICRO ####[facility] [address] [place] [address]Dr. Donis Mancini WBC 2-5 Abnormal NONE SEEN The [facility] Comment on above: Performed By: #### U ACSIND, UMICRO ####[facility] [address] [place] [address]Dr. Donis Mancini US KIDNEYSon 04-27-2022 US KIDNEYS [...] Date: 2022-04-27 17:48 Normal The [facility] CULTURE URINEon 04-16-2022 CULTURE URINE Isolate [...] <=20 S F Normal The [facility] Comment on above: Performed By: #### U RCX #### [facility] [address] [place] [address] Dr. Doins Mancini US PREG ANATOMY SINGLEon US PREG [...] Date: 2022-04-12 22:22 Normal The [facility] UA RANDOM W/MICROSCOPICon BACTERIA SMALL Abnormal NONE SEEN The [facility] Comment on above: Performed By: #### U AMIC #### [facility] [address] [place] [address] Dr. Donis Mancini Bilirubin Ql (U) Negative Normal NEGATIVE The [facility] Comment on above: Performed By: #### U AMIC #### [facility] [address] [place] [address] Dr. Donis Mancini CAST NONE SEEN Normal NONE SEEN [facility] Comment on above: Performed By: #### U AMIC #### [facility] [address] [place] [address] Dr. Donis Mancini Clarity (U) CLEAR Normal CLEAR The [facility] Comment on above: Performed By: #### U AMIC #### [facility] [address] [place] [address] Dr. Donis Mancini Color (U) LT. YELLOW Normal YELLOW The [facility] Comment on above: Performed By: #### U AMIC #### [facility] [address] [place] [address] Dr. Donis Mancini Crystals LM Nom (Urine sed) NONE SEEN Normal NONE SEEN [facility] Comment on above: Performed By: #### U AMIC #### [facility] [address] [address] [address] Donis Mancini Epithelial cells LM Ql (Urine sed) FEW Abnormal NONE SEEN /RARE The [facility] Comment on above: Performed By: #### U AMIC #### [facility] [address] [address] [address] Donis Mancini Glucose Ql (U) Negative Normal NEGATIVE The [facility] [place] Comment on above: Performed By: #### U AMIC #### [facility] [address] [address] [address] Donis Mancini Hemoglobin Ql (U) Negative Normal NEGATIVE The [facility] Comment on above: Performed By: #### U AMIC #### [facility] [address] [address] [address] Donis Mancini Ketones Ql (U) Negative Normal NEGATIVE The [facility] [place] Comment on above: Performed By: #### U AMIC #### [facility] [address] [address] [address] Donis Mancini LEUKOCYTES LARGE Abnormal NEGATIVE [facility] Comment on above: Performed By: #### U AMIC #### [facility] [address] [address] [address] Donis Mancini MUCOUS NONE SEEN Normal NONE SEEN The [facility] Comment on above: Performed By: #### U AMIC #### [facility] [address] [place] [address] Dr. Donis Mancini Nitrite Ql (U) Negative Normal NEGATIVE The [facility] [place] Comment on above: Performed By: #### U AMIC #### [facility] [address] [address] [address] Donis Mancini pH (U) 5.5 [pH] Normal 5-9 [facility] Comment on above: Performed By: #### U AMIC #### [facility] [address] [place] [address] Dr. Donis Mancini RBC 0-2 Normal 0-2 [facility] Comment on above: Performed By: #### U AMIC #### [facility] [address] [place] [address] Dr. Donis Mancini SPEC GRAVITY <=1.005 Abnormal 1.005-<=1.02 5 [facility] Comment on above: Performed By: #### U AMIC #### [facility] [address] [address] [address] Donis Mancini UA PROTEIN Negative Normal NEGATIVE/ TRACE The [facility] Comment on above: Performed By: #### U AMIC #### [facility] [address] [address] [address] Donis Mancini Urobilinogen Qn (U) 0.2 {Sarah'U}/dL Normal 0.2 - 1. 0 The [facility] Comment on above: Performed By: #### U AMIC #### [facility] [address] [address] [address] Donis Mancini WBC 5-10 Abnormal NONE SEEN The [facility] Comment on above: Performed By: #### U AMIC #### [facility] [address] [address] [address] Donis Mancini HEP B SURFACE ANTIGEN SCREEN on 01-23-2022 HBsAg Screen Negative Normal Negative [facility] Comment on above: Performed By: #### U AMIC #### [facility] [address] [address] [address] Donis Mancini HEPATITIS C VIRUS AB W/ REFL EX QUANTon 01-23-2022 HCV AB 0.1 s/co ratio Normal 0.0-0.9 The [facility] [place] Comment on above: Performed By: #### H CVPCRR ####[facility] [address] [place] [address]Dr. Donis Mancini Interpretation: Comment Normal The [facility] Comment on above: Result Comment: Nega tive Not infected with HCV, unless recent infection is suspected or other evidence exists to indicate HCV infection. Performed By: #### H CVPCRR ####[facility] [address] [place] [address]Dr. Donis Mancini HIV 1 AND 2 WITH REFLEXon HIV Screen 4th Generation wRfx Non-Reactive Normal Non Reactive The [facility] Comment on above: Result Comment: HIV Negative HIV-1/HIV-2 antibodies and HIV-1 p24 antigen were NOT detected. There is no laboratory evidence of HIV infection. Performed By: #### H IV12 ####[facility] [address] [place] [address]Dr. Donis Mancini RPR QUANTon 01-23-2022 Rapid Plasma Reagin, Quant Non-Reactive Normal NonRea<1:1 The [facility] Comment on above: Result Comment: Ashley catalan Note: This test does not meet current guidelines for screening and diagnosis of syphilis. This test is intended for following treatment response in patients being treated for syphilis infection. To screen for syphilis infection, a reflex cascade that includes both RPR and a treponema-specific assay should be utilized, such as Treponema pallidum (Syphilis) Screening [place] (095901) or Rapid Plasma Reagin (RPR) Test With Reflex to Quantitative RPR and Confirmatory Treponema pallidum Antibodies (160173). Performed By: #### R PRQ ####[facility] [address] [place], [place] [address]Dr. Donis Mancini RUBELLA AB IGGon 01-23-2022 Rubella Antibodies, IgG 1.60 index Normal Immune >0.99 [facility] Comment on above: Result Comment: Non- immune <0.90 Equivocal 0.90 - 0.99 Immune >0.99 Performed By: #### U AMIC #### [facility] [address] [place] [address] Dr. Donis Mancini CBC AUTO DIFFon 01-22-2022 BASO # 0.1 103/ul Normal 0.0-0.1 [facility] Comment on above: Performed By: #### U AMIC #### [facility] [address] [place] [address] Dr. Donis Mancini Basophils/100 WBC (Bld) 0.5 % Normal 0.2-2.0 [facility] Comment on above: Performed By: #### U AMIC #### [facility] [address] [place] [address] Dr. Donis Mancini EO # 0.6 103/ul Normal 0.0-0.7 [facility] Comment on above: Performed By: #### U AMIC #### [facility] [address] [address] [address] Donis Mancini Eosinophils/100 WBC (Bld) 5.1 % Normal 0.9-7.0 [facility] Comment on above: Performed By: #### U AMIC #### [facility] [address] [place] [address] Dr. Donis Mancini Erythrocyte distribution width (RBC) [Ratio] 12.0 % Normal 11.0-15.0 [facility] Comment on above: Performed By: #### U AMIC #### [facility] [address] [place] [address] Dr. Donis Mancini Hematocrit (Bld) [Volume fraction] 45.8 % Normal 36.0-48.0 [facility] Comment on above: Performed By: #### U AMIC #### [facility] [address] [place] [address] Dr. Donis Mancini Hemoglobin (Bld) [Mass/Vol] 15.3 g/dL Normal 12.0-16.0 [facility] Comment on above: Performed By: #### U AMIC #### [facility] [address] [place] [address] Dr. Donis Mancini IG # 0.03 10e3/ul Normal 0.00-0.03 [facility] Comment on above: Performed By: #### U AMIC #### [facility] [address] [place] [address] Dr. Donis Mancini IG % 0.3 % Normal 0.0-0.5 [facility] Comment on above: Performed By: #### U AMIC #### [facility] [address] [place] [address] Dr. Donis Mancini LYMPH # 1.7 103/ul Normal 1.2-3.8 [facility] Comment on above: Performed By: #### U AMIC #### [facility] [address] [place] [address] Dr. Donis Mancini Lymphocytes/100 WBC (Bld) 15.9 % Critically low 20.5-60.0 [facility] Comment on above: Performed By: #### U AMIC #### [facility] [address] [address] [address] Donis Mancini MANUAL DIFF REQ NO Normal [facility] Comment on above: Performed By: #### U AMIC #### [facility] [address] [address] [address] Donis Mancini MCH (RBC) [Entitic mass] 31.5 pg Normal 26.7-34.0 [facility] Comment on above: Performed By: #### U AMIC #### [facility] [address] [address] [address] Donis Mancini MCHC (RBC) [Mass/Vol] 33.4 g/dL Normal 29.9-35.2 [facility] Comment on above: Performed By: #### U AMIC #### [facility] [address] [place] [address] Dr. Donis Mancini MCV (RBC) [Entitic vol] 94.2 fL Normal 81.0-99.0 [facility] Comment on above: Performed By: #### U AMIC #### [facility] [address] [address] [address] Donis Mancini MONO # 0.6 103/ul Normal 0.3-0.8 [facility] Comment on above: Performed By: #### U AMIC #### [facility] [address] [address] [address] Donis Mancini Monocytes/100 WBC (Bld) 5.8 % Normal 1.7-12.0 [facility] Comment on above: Performed By: #### U AMIC #### [facility] [address] [address] [address] Donis Mancini NEUT # 7.8 103/ul Critically high 1.4-6.5 The [facility] Comment on above: Performed By: #### U AMIC #### [facility] [address] [address] [address] Donis Mancini Neutrophils/100 WBC (Bld) 72.4 % Normal 43.0-75.0 [facility] Comment on above: Performed By: #### U AMIC #### [facility] [address] [address] [address] Donis Mancini Platelet mean volume (Bld) [Entitic vol] 9.9 fL Normal 9.5-13.5 [facility] Comment on above: Performed By: #### U AMIC #### [facility] [address] [address] [address] Donis Mancini PLT 281 103/ul Normal 150-450 [facility] Comment on above: Performed By: #### U AMIC #### [facility] [address] [address] [address] Donis Mancini RBC 4.86 106/ul Normal 4.20-5.40 [facility] Comment on above: Performed By: #### U AMIC #### [facility] [address] [address] [address] Donis Mancini WBC 10.8 103/ul Normal 4.0-11.0 [facility] Comment on above: Performed By: #### U AMIC #### [facility] [address] [address] [address] Donis Mancini CULTURE URINEon 01-22-2022 CULTURE URINE Culture Observations: LIGHT GROWTH OF MIXED GENITAL RAMBO. NO POTENTIAL PATHOGENS SEEN. Normal [facility] Comment on above: Performed By: #### U RCX #### [facility] [address] [address] [address] Donis Mancini GLYCOHEMOGLOBIN A1Con 2021 ADA RECOMMENDATION SEE BELOW Normal [facility] Comment on above: Result Comment: ADA RECOMMENDED LIMIT 4.0 - 6.0 ADA THERAPEUTIC TARGET < 7.0 ACTION SUGGESTED > 7.0 Performed By: #### A 1C ####[facility] [address] [place] [address]Dr. Donis Mancini Glucose [Mass/Vol] 100 mg/dL Normal [facility] Comment on above: Performed By: #### A 1C ####[facility] [address] [place] [id number]. Donis Mancini HbA1c (Bld) [Mass fraction] 5.1 % Normal 4.5-6.2 [facility] Comment on above: Performed By: #### A 1C ####[facility] [address] [place], [place] [address]Fm. Donis Mancini SEAN BOX TEST PT SEND OUTo n 01-22-2022 SENT TO REF LAB 01/22/2022 Normal [facility] Comment on above: Performed By: #### N BOX ####[facility] [address] [place], [place] [address]Pz. Donis Mancini TYPE AND SCREENon 01-22-2022 TYPE AND SCREEN Negative Normal [facility] Comment on above: Performed By: #### T NS #### [facility] [address] [address] [address] Donis Mancini US PREG TVon 01-17-2022 [...] Date: 2022-01-17 09:34 Normal [facility] Provider Letteron 04-06-2021 Provider Letter April 06, 2021 Dear Vimal, We have been trying to reach you with no success. It is important that you return our call regarding your appointment upon receiving this letter. Also, at the time of your call, please provide us with your current information. Thank you for your prompt attention to this matter. Sincerely, [employer] [address] [place] [address] Normal [facility] Ambulatory Clinical Summaryo n 03-10-2021 Ambulatory Clinical Summary {[id number]}CD:[id number] Normal [facility] Ambulatory Clinical Summaryo n 03-05-2021 Ambulatory Clinical Summary {[id number]}CD:[id number] Normal [facility] Gynecology Phone Visit- Tele healthon 03-05-2021 [...] only communication with the patient located at [address] [place] [phone], with no one else. 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 CODING DATE: 12/18/2020 FINAL [facility] STATUS: Home (Routine DC) PAYOR: Lory ADMIT DX: REASON FOR VISIT DX: U07.1 [...] CphT Date Saved: 12/18/2020 12:44 pm Normal [facility] Physician Orderon 12-16-2020 Physician Order [id number] #1.00CD:127 Normal [facility] Rapid COVID Antigen ([facility])on 12-16-2020 Rapid COV Int NEG Ctl Pass Normal [facility] Comment on above: Performed By: #### 2 [id number] #### [facility] [address] [place] [address] Rapid COV Int POS Ctl Pass Normal [facility] Comment on above: Performed By: #### 2 [id number] #### [facility] [address] [place] [address] SARS-CoV-2 (COVID-19) RNA INESSA+probe Ql (Unsp spec) Detected Abnormal Not Detected [facility] Comment on above: Result Comment: Left a message for callback. SS 12/16/2020 11:42:47 EDT Results faxed to infection control. The [employer] Veritor? System for Rapid Detection of SARS-CoV-2 [...] or revoked sooner. Performed By: #### 2 [id number] #### [facility] [address] [place] [address] Employed in Healthcare Unknown Normal [facility] Comment on above: Performed By: #### 2 [id number] #### [facility] [address] [place] [address] First Test Unknown Normal [facility] Comment on above: Performed By: #### 2 [id number] #### [facility] [address] [place] [address] Hospitalized? NO Normal [facility] Comment on above: Performed By: #### 2 [id number] #### [facility] [address] [place] [address] ICU NO Normal [facility] Comment on above: Performed By: #### 2 [id number] #### [facility] [address] [place] [address] ? Unknown Normal [facility] Comment on above: Performed By: #### 2 [id number] #### [facility] [address] [place] [address] [facility] Unknown Normal [facility] Comment on above: Performed By: #### 2 [id number] #### [facility] [address] [place] [address] Symptomatic as defined by [facility] YES Normal [facility] Comment on above: Performed By: #### 2 [id number] #### [facility] [address] [place] [address] [facility] Clinical Summary {[id number]}CD:[id number] Normal [facility] Vital Signs Date Time Vital Sign Value Performing Clinician Facility 04-11-2025 15:38-0400 Body mass index (BMI) [Ratio] 30.2 kg/m2 Rossana BISWAS Work Phone: [facility] 04-11-2025 15:38-0400 Body weight 77.34 kg Rossana BISWAS Work Phone: [facility] 04-11-2025 15:38-0400 Diastolic blood pressure 100 mm[Hg] Rossana BISWAS Work Phone: [facility] 04-11-2025 15:38-0400 Systolic blood pressure 142 mm[Hg] Rossana BISWAS Work Phone: [facility] 03-14-2025 11:36-0400 Body mass index (BMI) [Ratio] 29.23 kg/m2 Jose Michael DO Work Phone: [facility] 03-14-2025 11:36-0400 Body weight 74.84 kg Jose Michael DO Work Phone: [facility] 03-14-2025 11:36-0400 Diastolic blood pressure 76 mm[Hg] Jose Michael DO Work Phone: [facility] 03-14-2025 11:36-0400 Systolic blood pressure 112 mm[Hg] Jose Michael DO Work Phone: [facility] 02-20-2025 16:08-0400 Body mass index (BMI) [Ratio] 28.83 kg/m2 Rossana BISWAS Work Phone: [facility] 02-20-2025 16:08-0400 Body weight 73.82 kg Rossana BISWAS Work Phone: [facility] 02-20-2025 16:08-0400 Diastolic blood pressure 82 mm[Hg] Rossana BISWAS Work Phone: [facility] 02-20-2025 16:08-0400 Systolic blood pressure 110 mm[Hg] Rossana BISWAS Work Phone: [facility] 01-14-2025 15:42-0400 Body mass index (BMI) [Ratio] 27.3 kg/m2 Jose Michael DO Work Phone: [facility] 01-14-2025 15:42-0400 Body weight 69.91 kg Jose Michael DO Work Phone: [facility] 01-14-2025 15:42-0400 Diastolic blood pressure 70 mm[Hg] Jose Michael DO Work Phone: [facility] 01-14-2025 15:42-0400 Systolic blood pressure 120 mm[Hg] Jose Michael DO Work Phone: [facility] 08-20-2024 10:55-0500 Body mass index (BMI) [Ratio] 25.93 kg/m2 Rossana Leach PA Work Phone: [facility] 08-20-2024 10:55-0500 Body weight 66.41 kg Rossana Leach PA Work Phone: [facility] 08-20-2024 10:55-0500 Diastolic blood pressure 70 mm[Hg] Rossana Leach PA Work Phone: [facility] 08-20-2024 10:55-0500 Systolic blood pressure 120 mm[Hg] Rossana Leach PA Work Phone: [facility] 08-06-2024 09:38-0500 Body mass index (BMI) [Ratio] 25.47 kg/m2 Jose Michael DO Work Phone: [facility] 08-06-2024 09:38-0500 Body weight 65.23 kg Jose Michael DO Work Phone: [facility] 08-06-2024 09:38-0500 Diastolic blood pressure 70 mm[Hg] Jose Michael DO Work Phone: [facility] 08-06-2024 09:38-0500 Systolic blood pressure 120 mm[Hg] Jose Michael DO Work Phone: [facility] 06-29-2024 09:12-0400 Body mass index (BMI) [Ratio] 24.58 kg/m2 Nom Nurse [facility] 06-29-2024 09:12-0400 Body weight 62.94 kg Nom Nurse [facility] 06-29-2024 09:12-0400 Diastolic blood pressure 72 mm[Hg] Noms Nurse [facility] 06-29-2024 09:12-0400 Systolic blood pressure 122 mm[Hg] [facility] Nurse [facility] 12-26-2022 13:45-0400 Body height 160.02 cm Jennifer Huston Other [employer] Other 04-02-2023 13:45-0400 Body mass index (BMI) [Ratio] 27.45 kg/m2 Jennifer Huston Other [employer] Other 12-26-2022 13:45-0400 Body temperature 97 [degF] Jennifer Huston Other [employer] Other 12-26-2022 13:45-0400 Body weight 70.31 kg Jennifer Huston Other [employer] Other 12-26-2022 13:45-0400 Diastolic blood pressure 89 mm[Hg] Jennifer Huston Other [employer] Other 12-26-2022 13:45-0400 Respiratory rate 18 /min Jennifer Huston Other [employer] Other 12-26-2022 13:45-0400 SaO2% (BldA) [Mass fraction] 100 % Jennifer Huston Other [employer] Other 12-26-2022 13:45-0400 Systolic blood pressure 135 mm[Hg] Jennifer Huston Other [employer] Other Encounters Encounter Date Encounter Type Care Provider Facility Start: 04-25-2025 End: 04-25-2025 flow sheet Rossana BISWAS Work Phone: [facility] Comment on above: Second trimester pre gnancy ([facility]); 27 weeks gestation of ([facility]); induced hypertension, antepartum ([facility]) Start: 04-25-2025 End: 04-25-2025 Bamboo flowsheet Rossana BISWAS Work Phone: [facility] Start: 04-25-2025 End: 04-25-2025 Bamboo flowsheet Rossana BISWAS Work Phone: [facility] Start: 04-11-2025 End: 04-11-2025 ambulatory ROSSANA LEACH Not Available Start: 04-11-2025 End: 04-11-2025 flow sheet Rossana BISWAS Work Phone: [facility] Comment on above: Second trimester pre gnancy ([facility]); 25 weeks gestation of ([facility]); Diabetes mellitus screening; Elevated BP without diagnosis of hypertension Start: 04-11-2025 End: 04-11-2025 Bamboo flowsheet Rossana BISWAS Work Phone: [facility] Start: 04-11-2025 End: 04-11-2025 Bamboo flowsheet Rossana BISWAS Work Phone: [facility] Start: 03-25-2025 End: 03-25-2025 Clinisync Result Encounter Jose Michael DO Work Phone: [facility] Unsolicited Start: 03-25-2025 End: 03-25-2025 Clinisync Result Encounter Jose Michael DO Work Phone: [facility] Unsolicited Start: 03-14-2025 End: 03-14-2025 Bamboo flowsheet Jose Michael DO Work Phone: [facility] Start: 03-14-2025 End: 03-14-2025 Bamboo flowsheet Jose Michael DO Work Phone: [facility] Start: 03-14-2025 End: 03-14-2025 ambulatory JOSE MICHAEL Not Available Start: 03-14-2025 End: 03-14-2025 flow sheet Jose Michael DO Work Phone: [facility] Comment on above: Second trimester pre gnancy ([facility]); 21 weeks gestation of ([facility]) Start: 03-08-2025 End: 03-08-2025 Clinisync Result Encounter [...] to original px Rossana BISWAS Work Phone: [facility] Comment on above: Postoperative examin [...] Start: 08-10-2024 End: 08-10-2024 ambulatory PHYSICIAN [facility] Work Phone: Start: 08-10-2024 End: 08-10-2024 Departed Referred PHYSICIAN NO [facility] Start: 08-06-2024 End: 08-06-2024 Bamboo flowsheet Jose Michael DO Work Phone: [facility] Start: 08-06-2024 End: 08-06-2024 Bamboo flowsheet Jose Mihcael DO Work Phone: [facility] Start: [...] 12-26-2022 End: 12-26-2022 ambulatory Jennifer Huston Other [facility] [employer] Other Start: 12-26-2022 End: 12-26-2022 Patient encounter procedure SPO[employer]BBER STRAND-C Jennifer Huston Work Phone: [facility] Work Phone: Start: 11-02-2022 End: 11-02-[address] JOSE RODRIGUEZ . Facility: Start: 08-16-2022 End: 08-16-[address] DOCTOR ATWOOD Facility: Start: 08-10-2022 End: 08-12-2022 Evaluation and management of inpatient DR DOCTOR ATWOOD Facility: Start: 08-07-2022 End: 08-07-[address] DOCTOR ATWOOD Facility:[facility] Start: 07-31-2022 End: 07-31-[address] JOSE [...] Date Procedure Procedure Detail Performing Clinician Start: 04-25-2025 Urnls dip stick/tabl et rgnt non-auto w/o micrscp Rossana BISWAS Work Phone: Start: 04-11-2025 Urnls dip stick/tabl et rgnt non-auto w/o micrscp Rossana BISWAS Work Phone: Start: 03-25-2025 US OB INCOMPLETE ANATOMY Jose Michael DO Work Phone: Start: 03-14-2025 Urnls dip stick/tabl et rgnt non-auto w/o micrscp Jose Michael DO Work Phone: Start: 03-08-2025 US OB ANATOMY Jose Aleida io DO Work Phone: Start: 03-08-2025 US OB CERVICAL LENGTH C orey Michael DO Work Phone: Start: 02-20-2025 RECURRENT VAGINITIS (HTRX) Rossana BISWAS Work Phone: Start: 02-20-2025 Urnls dip stick/tabl et rgnt non-auto w/o micrscp Rosasna BISWAS Work Phone: Start: 02-20-2025 IGP,APTIMA HPV,AGE GDLN Rossana Leach PA Work Phone: Start: 01-14-2025 Urnls dip stick/tabl [...] [facility] DRUG SCREEN RAPI D (URINE) Jose Michael DO Work Phone: Start: 06-29-2024 End: 06-29-2024 Urnls dip stick/tablet rgnt non-auto w/o micrscp Jose Michael DO Work Phone: Start: 12-26-2022 Plain X-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 hand SPOOL[employer] RU[employer]ER STRAND-C Jennifer Huston Work Phone: Start: 11-02-2022 Cytp cerv/vag auto t hin layer prep mnl screen Jose Michael DO Work Phone: Start: 08-10-2022 Delivery of [...] Activity Detail Author Start: 05-27-2025 [facility] Start: 04-25-2025 End: 04-25-2025 Patient encounter procedure [facility] Comment on above: Arrived Start: 04-25-2025 End: 04-25-2026 Alanine aminotransferase [Enzymatic activity/volume] in Serum or Plasma ALT Lab Routine induced hypertension, antepartum ([facility]) Expected: 04/25/2025 (Approximate), Expires: 04/25/2026 [facility] Comment on above: Expected: 04/25/2025 (Approximate), Expires: 04/25/2026 Start: 04-25-2025 End: 04-25-2026 Aspartate aminotransferase [Enzymatic activity/volume] in Serum or Plasma AST Lab Routine induced hypertension, antepartum ([facility]) Expected: 04/25/2025 (Approximate), Expires: 04/25/2026 [facility] Comment on above: Expected: 04/25/2025 (Approximate), Expires: 04/25/2026 Start: 04-25-2025 End: 04-25-2026 CBC W Auto Differential panel - Blood CBC and differential Lab Routine induced hypertension, antepartum ([facility]) Expected: 04/25/2025 (Approximate), Expires: 04/25/2026 [facility] Comment on above: Expected: 04/25/2025 (Approximate), Expires: 04/25/2026 Start: 04-25-2025 End: 04-25-2026 Creatinine [Mass/volume] in Serum or Plasma Creatinine Lab Routine induced hypertension, antepartum ([facility]) Expected: 04/25/2025 (Approximate), Expires: 04/25/2026 [facility] Work Phone: Comment on above: Expected: 04/25/2025 (Approximate), Expires: 04/25/2026 Start: 04-25-2025 End: 04-25-2026 Lactate dehydrogenase [Enzymatic activity/volume] in Serum or Plasma by Lactate to pyruvate reaction Lactate dehydrogenase Lab Routine induced hypertension, antepartum ([facility]) Expected: 04/25/2025, Expires: 04/25/2026 [facility] Comment on above: Expected: 04/25/2025 , Expires: 04/25/2026 Start: 04-25-2025 End: 04-25-2026 Protein, urine, 24 hour Protein, urine, 24 hour Lab Routine induced hypertension, antepartum ([facility]) Expected: 04/25/2025 (Approximate), Expires: 04/25/2026 [facility] Comment on above: Expected: 04/25/2025 (Approximate), Expires: 04/25/2026 Start: 04-25-2025 End: 04-25-2026 Pt and ptt Pt and ptt Lab Routine induced hypertension, antepartum ([facility]) Expected: 04/25/2025, Expires: 04/25/2026 [facility] Comment on above: Expected: 04/25/2025 , Expires: 04/25/2026 Start: 04-25-2025 End: 04-25-2026 Urate [Mass/volume] in Serum or Plasma Uric acid Lab Routine induced hypertension, antepartum ([facility]) Expected: 04/25/2025 (Approximate), Expires: 04/25/2026 [facility] Comment on above: Expected: 04/25/2025 (Approximate), Expires: 04/25/2026 Start: 04-25-2025 End: 04-25-2026 Urea nitrogen [Mass/volume] in Serum or Plasma BUN Lab Routine induced hypertension, antepartum ([facility]) Expected: 04/25/2025, Expires: 04/25/2026 [facility] Comment on above: Expected: 04/25/2025 , Expires: 04/25/2026 Start: 04-11-2025 End: 04-11-2025 Patient encounter procedure 04/11/2025 3:30 PM EDT Routine [facility] [address] [place] [address] Rossana Leach PA [address] [place] [address] [facility] Start: 04-11-2025 End: 04-11-2026 CBC panel - Blood by Automated count CBC Lab Routine Diabetes mellitus screening Expected: 04/11/2025 (Approximate), Expires: 04/11/2026 [facility] Work Phone: Comment on above: Expected: 04/11/2025 (Approximate), Expires: 04/11/2026 Start: 04-11-2025 End: 04-11-2026 Measurement of glucose 1 hour after glucose challenge for glucose tolerance test Glucose tolerance, 1 hour Lab Routine Diabetes mellitus screening Expected: 04/11/2025 (Approximate), Expires: 04/11/2026 [facility] Comment on above: Expected: 04/11/2025 (Approximate), Expires: 04/11/2026 Start: 03-14-2025 End: 03-14-2025 Patient encounter procedure 03/14/2025 10:50 AM EDT Routine [facility] [address] [place] [address] Jose Rodriguez, DO [address] [place] [address] [facility] Start: 02-20-2025 End: 02-20-2025 Patient encounter procedure [facility] OB Comment on above: Arrived Start: 02-20-2025 End: 04-22-2025 Alpha fetoprotein, maternal Alpha fetoprotein, maternal Lab Routine 18 weeks gestation of Expected: 02/20/2025 (Approximate), Expires: 04/22/2025 [facility] Comment on above: Expected: 02/20/2025 (Approximate), Expires: 04/22/2025 Start: 02-20-2025 End: 05-23-2025 US for US OB 14+ weeks anatomy scan Imaging Routine Screening, , for anatomic survey Expected: 02/20/2025, Expires: 05/23/2025 [facility] Comment on above: Expected: 02/20/2025 , Expires: 05/23/2025 Start: 01-14-2025 End: 01-14-2025 Patient encounter procedure [facility] Comment on above: Arrived Start: 12-14-2024 End: 12-14-2024 ambulatory 12/14/2024 9:00 AM EDT Initial [facility] [address] [place] [address] [facility] Start: 12-14-2024 End: 12-14-2024 Professional / ancillary services management 12/14/2024 8:30 AM EDT Ancillary Procedure [facility] [address] [place] [address] [facility] Start: 08-20-2024 End: 08-20-2024 Patient encounter procedure 08/20/2024 10:20 AM EST Office Visit [facility] [address] [place] [address] Rossana Leach PA [address] [place], [place] [id number] [facility] Start: 08-06-2024 End: 08-06-2024 Patient encounter procedure 08/06/2024 9:10 AM EST Routine [facility] [address] [id number] Jose Rodriguez DO [address] [place] [address] [facility] Start: 06-29-2024 End: 06-29-2025 [...] first trimester Expected: 06/29/2024 (Approximate), Expires: 06/29/2025 [facility] Comment on above: Expected: 06/29/2024 (Approximate), Expires: 06/29/2025 Start: 06-29-2024 End: 06-29-2025 US Pelvis transvaginal US OB transvaginal Imaging Routine Missed menses Expected: 06/29/2024 (Approximate), Expires: 06/29/2025 [facility] Comment on above: Expected: 06/29/2024 (Approximate), Expires: 06/29/2025 Start: 05-27-2024 Influenza vaccination Influenza Vacc ine (#1) [facility] Bacteria identified in Urine by Culture Urine culture Microbiology Routine Missed menses Ordered: 06/29/2024 [facility] Comment on above: Ordered: 06/29/2024 Bacteria identified in Urine by Culture Urine culture Microbiology Routine Urinary frequency Ordered: 02/20/2025 [facility] Comment on above: Ordered: 02/20/2025 CBC W Auto Different ial panel - Blood CBC and differential Lab Routine Missed menses , unspecified gestational age Ordered: 06/29/2024 [facility] Comment on above: Ordered: 06/29/2024 CHLAMYDIA TRACHOMATI S (GENITO/STI) CHLAMYDIA TRACHOMATIS (GENITO/STI) Lab Routine STD exposure Ordered: 02/20/2025 [facility] Comment on above: Ordered: 02/20/2025 Cytology Cervical or vaginal smear or scraping study Pap Smear Pathology and Cytology Routine Well woman exam with routine gynecological exam Ordered: 02/20/2025 [facility] Comment on above: Ordered: 02/20/2025 Hemoglobin A1c/Hemoglobin.total in Blood Hemoglobin A1c Lab Routine Missed menses , unspecified gestational age Ordered: 06/29/2024 [facility] Comment on above: Ordered: 06/29/2024 Hepatitis B virus beltran rface Ag [Presence] in Serum or Plasma by Immunoassay Hepatitis B surface antigen Lab Routine Missed menses , unspecified gestational age Ordered: 06/29/2024 [facility] Comment on above: Ordered: 06/29/2024 Hepatitis C virus Ab [Presence] in Serum or Plasma by Immunoassay Hepatitis C antibody Lab Routine Missed menses , unspecified gestational age Ordered: 06/29/2024 [facility] Comment on above: Ordered: 06/29/2024 HIV-1/HIV-2 antigen/antibody combination immunoassay HIV-1 and HIV-2 antibodies Lab Routine Missed menses , unspecified gestational age Ordered: 06/29/2024 [facility] Comment on above: Ordered: 06/29/2024 Neisseria gonorrhoea e DNA [Presence] in Unspecified specimen by INESSA with probe detection Neisseria gonorrhea DNA probe, direct Lab Routine STD exposure Ordered: 02/20/2025 [facility] Comment on above: Ordered: 02/20/2025 Reagin Ab [Presence] in Serum by RPR RPR Lab Routine Missed menses , unspecified gestational age Ordered: 06/29/2024 [facility] Comment on above: Ordered: 06/29/2024 Rubella antibody, IgG Rubella an tibody, IgG Lab Routine Missed menses , unspecified gestational age Ordered: 06/29/2024 [facility] Comment on above: Ordered: 06/29/2024 SURESWAB(R) ADVANCED VAGINITIS PLUS, TMA SURESWAB(R) ADVANCED VAGINITIS PLUS, TMA Pathology and Cytology Routine STD exposure Ordered: 02/20/2025 [facility] Work Phone: Comment on above: Ordered: 02/20/2025 Immunizations Immunization Date Immunization Notes Care Provider Ryne abrams 08-28-2002 influenza virus vacc ine, unspecified formulation [facility] Payers Date Payer Category Payer Medicaid [employer] [place] [employer] [id number] 2023-Present [address] [place] [address] [id number] 2023 Medicaid (Managed Care) [employer] [id number] 2021 Blue Cross Blue Shield [id number] 2021 Unknown BCBS BCBS [id number] [id number] 2021-Present [phone] [address] [place] [address] [id number] 2001 Unknown [id number] 2.16.840.1.939849.3.579.2. 593 2001 Unknown [id number] 2.16.840.1.846297.3.579.2. 593 2001 Unknown [id number] 2.16.840.1.908558.3.579.2. 593 2001 Unknown [id number] 2.16.840.1.585064.3.579.2. 593 2001 Unknown [id number] 2.16.840.1.450955.3.579.2. 593 2001 Unknown [id number] 2.16.840.1.855212.3.579.2. 593 2001 Unknown [id number] 2.16.840.1.853364.3.579.2. 593 2001 Unknown [id number] 2.16.840.1.642368.3.579.2. 593 2001 Unknown [id number] 2.16.840.1.659099.3.579.2. 593 2001 Unknown [id number] 2.16.840.1.694632.3.579.2. 593 2001 Unknown [id number] 2.16.840.1.749553.3.579.2. 593 2001 Unknown [id number] 2.16.840.1.684300.3.579.2. 593 2001 Unknown [id number] 2.16.840.1.100107.3.579.2. 593 2001 Unknown [id number] 2.16.840.1.064567.3.579.2. 593 2001 Unknown [id number] 2.16.840.1.697890.3.579.2. 593 2001 Unknown [id number] 2.16840.1.093204.3.579.2. 593 2001 Unknown [id number] 2.16.840.1.634376.3.579.2. 593 2001 Unknown [id number] 2.16.840.1.758892.3.579.2. 593 2001 Unknown [id number] 2.16.840.1.493552.3.579.2. 593 2001 Unknown [id number] 2.16.840.1.594176.3.579.2. 593 2001 Unknown [id number] 2.16.840.1.353518.3.579.2. 593 2001 Unknown [id number] 2.16.840.1.605310.3.579.2. 1259 2001 Unknown [id number] 2.16.840.1.627790.3.579.2. 1259 2001 Unknown [id number] 2.16.840.1.746065.3.579.2. 1259 2001 Unknown [id number] 2.16.840.1.392793.3.579.2. 1259 2001 Unknown [id number] 2.16.840.1.010541.3.579.2. 1259 2001 Unknown [id number] 2.16.840.1.454142.3.579.2. 1259 2001 Unknown [id number] 2.16.840.1.778374.3.579.2. 1259 2001 Unknown [id number] 2.16.840.1.169020.3.579.2. 1259 2001 Unknown [id number] 2.16.840.1.869405.3.579.2. 1259 1959 Self-pay 1959 Unknown [id number] 1959 Unknown [id number] Unknown [id number] 2.16.840.1.322487.3.579.2. 593 Unknown [id number] 2.16.840.1.733777.3.579.2. 531 Social History Date Type Detail Facility Start: 10-13-2023 End: 06-29-2024 Sex Assigned At [facility] [employer] Other Start: 2000 Sex Assigned At Female F [facility] Start: 10-13-2023 Tobacco smoking stat [facility] Never smoked tobacco [facility] Start: 06-29-2024 End: 03-14-2025 Alcoholic beverage intake Current drinker of alcohol (finding) [facility] Start: 10-13-2023 End: 06-29-2024 History of Social function [facility] Start: 05-24-2024 [facility] Start: 2001 Sex assigned at Not on file [facility] Tobacco smoking stat [facility] Unknown if ever smoked [facility] Work Phone: Start: 08-11-2024 Sex Female (finding) [facility] Clinical Notes 12-26-2022 to 04-25-2025 TRUE Argueta - 04/25/2025 2:50 PM TRUE Navarro - 04/11/2025 3:30 PM RICHARDFannieshireen JonhMARILU - 03/14/2025 10:50 AM TRUE Navarro - 02/20/2025 3:40 PM TRUE Navarro - 08/20/2024 10:20 AM EST Note Date & Type Note Facility 04-25-2025 History of Presen t illness Narrative Reason for Appointment: Patient ID: Vimal Funes is a 25 y.o. female who [...] History of blood transfusion Lead poisoning Miscarriage ([facility]) Nonsmoker Post depression HISTORY PAST MEDICAL HISTORY SOCIAL HISTORY Past Medical History: Diagnosis Date Anemia Gestational diabetes ([facility]) History of blood transfusion Lead poisoning Miscarriage ([facility]) Nonsmoker Post depression /anxiety Social History Tobacco [...] Vitals: Estimated body mass index is 30.2 kg/m as calculated from the following: Height as of 01/06/23: 5' 3 . Weight as of 04/11/25: 170 lb 8 oz. BP: Patient's last menstrual period was 10/15/2024 (exact date). ASSESSMENT & PLAN ICD-10-CM 1. Second trimester ([facility]) Z34.92 2. 27 weeks gestation of ([facility]) Z3A.27 Patient presents for BP check. BP elevated today despite taking 100mg bid labetolol daily. We will increase to 200mg bid daily. Patient given labs and instructed to follow up with OB should she develop headache or vision changes Pt will follow up with DR Rodriguez next week Documented by TRUE Argueta on behalf of: TRUE Argueta documented in this encounter [facility] 04-11-2025 History of Presen t illness Narrative Reason [...] Medical History: Diagnosis Date Anemia Gestational diabetes ([facility]) History of blood transfusion Lead poisoning Miscarriage ([facility]) Nonsmoker Post depression HISTORY PAST MEDICAL HISTORY SOCIAL HISTORY Past Medical History: Diagnosis Date Anemia Gestational diabetes ([facility]) History of blood transfusion Lead poisoning Miscarriage ([facility]) Nonsmoker Post depression /anxiety Social History Tobacco [...] Vitals: Estimated body mass index is 30.2 kg/m as calculated from the following: Height as of 01/06/23: 5' 3 . Weight as of this encounter: 170 lb 8 oz. BP: (!) 142/100 Patient's last menstrual period was 10/15/2024 (exact date). ASSESSMENT & PLAN ICD-10-CM 1. Second trimester ([facility]) Z34.92 POCT urinalysis dipstick manually resulted 2. 25 weeks gestation of ([facility]) Z3A.25 3. Diabetes mellitus screening Z13.1 CBC Glucose tolerance, 1 hour CBC Glucose tolerance, 1 hour 4. Elevated BP without diagnosis of hypertension R03.0 labetalol (Normodyne) 100 MG tablet Return OB: Patient presents today for a routine obstetrics appointment. Patient is currently 25w3d . Patient states she is doing well but has complaints of being tired due to current . Patient has verbalizes frequent movement. labor precautions was discussed/given and patient was instructed to perform kick counts three times a day. Patient will be started on labetolol 100mg bid. She had 3 elevated HOSSEIN in office, UA neg but states she has had head pressure. Previuos hx of hypertension post Orders Placed This Encounter Procedures CBC Glucose tolerance, 1 hour POCT urinalysis dipstick manually resulted Follow Up: Patient is to return to office in 2 week for routine OB appointment. Documented by TRUE Argueta on behalf of: TRUE Argueta documented in this encounter [facility] 03-14-2025 History of Presen t illness Narrative [...] History of blood transfusion Lead poisoning Miscarriage ([facility]) Nonsmoker Post depression HISTORY PAST MEDICAL HISTORY [...] nursing note reviewed. Exam conducted with a histologist present. Vitals: Estimated body mass index is 29.23 kg/m as calculated from the following: Height as of 01/06/23: 5' 3 . Weight as of this encounter: 165 lb. BP: 112/76 Patient's last menstrual period was 10/15/2024 (exact date). ASSESSMENT & PLAN ICD-10-CM 1. Second trimester ([facility]) Z34.92 POCT urinalysis dipstick manually resulted 2. 21 weeks gestation of ([facility]) Z3A.21 Patient presents today for a routine obstetrics appointment. Patient is currently 21w3d with a Estimated Date of Delivery: 07/22/25. Patient has no complaints at this time and will return to clinic in 4 weeks. Documented by Diamond Borja LPN on behalf of: Jose Rodriguez DO documented in this encounter [facility] 02-20-2025 History of Presen t illness Narrative [...] transfusion Lead poisoning Miscarriage Nonsmoker Post depression ([facility]/HCC) HISTORY PAST MEDICAL HISTORY SOCIAL HISTORY Past Medical History: Diagnosis Date Anemia Gestational diabetes History of blood transfusion Lead poisoning Miscarriage Nonsmoker Post depression ([facility]) /anxiety Social History Tobacco Use Smoking status: [...] nursing note reviewed. Exam conducted with a histologist present. Vitals: Estimated body mass index is [...] of: TRUE Argueta documented in this encounter [facility] 01-14-2025 History of Presen t illness Narrative [...] nursing note reviewed. Exam conducted with a histologist present. Vitals: Estimated body mass index is [...] meat, and stay away from [facility]. Patient has been consulted regarding any [...] Jose Rodriguez DO documented in this encounter [facility] 08-20-2024 History of Presen t illness Narrative [...] D&C Hysteroscopy performed at [facility] with Dr. Rodriguez. Pathology results was reviewed with the patient in great detail and all restrictions have been lifted. Follow Up: Patient is to return to the office for annual exam unless needed otherwise. Documented by TRUE Argueta on behalf of: TRUE Argueta documented in this encounter [facility] 08-06-2024 History of Presen t illness Narrative [...] nursing note reviewed. Exam conducted with a histologist present. Vitals: Estimated body mass index is [...] vaginal bleeding. Patient to discuss date with Venue Attendant prior to leaving. Patient is able to obtain work note for the week and if longer is needed she will reach out to office. Documented by Diamond Borja LPN on behalf of: Jose Rodriguez DO documented in this encounter [facility] 06-29-2024 History of Presen t illness Narrative [...] blood transfusion Lead poisoning Nonsmoker Post depression ([facility]) Family History Problem Relation Name Age of [...] and HIV-2 antibodies - Urine culture - OB transvaginal; Future - POCT , urine [...] meat, and stay away from [facility]. Patient has also been advised to [...] by: Whitney Peacock documented in this encounter [facility] 12-26-2022 Evaluation note Encounter Date Diagnosis Assessment [...] appointment to be seen soon as possible [employer] Other Evaluation noteNo assessment information available [facility] Work Phone: Evaluation note* Diagnosis Missed menses , unspecified gestational age Encounter for supervision of normal first in first trimester Nausea Nausea alone 7 weeks gestation of [facility] Diagnosis Miscarriage Unspecified spontaneous without mention of complication [facility] Diagnosis Postoperative examination Follow-up examination, following unspecified surgery [facility] Diagnosis 13 weeks gestation of Second [...] of ([facility]-HCC) [facility] Diagnosis Second trimester ([facility]HS-HCC) state, incidental 25 weeks gestation of (HHS-HCC) Diabetes mellitus screening Screening for diabetes mellitus Elevated BP without diagnosis of hypertension [facility] Diagnosis Second trimester ([facility]HS-HCC) state, incidental 27 weeks gestation of (HHS-HCC) induced hypertension, antepartum (HHS-HCC) Transient hypertension of , antepartum documented in this encounter [facility] Healthcare Summary Purpose Family History No Family History Records FoundNo Family History Records FoundNo Family History Records FoundNo Family History Records Found Advance Directives Advance Directive Response Recorded Date/ Time Advance Directives No December 27 23 6:21am Additional Source Comments INFORMATION SOURCE (unrecogn ized section and content) DATE CREATED AUTHOR 09/24/2021 [facility] DATE CREATED AUTHOR MARLYN ORGANIZ ATDARRYL 12/07/2022 [facility] DATE CREATED AUTHOR AUTHOR'S ORGANIZ ATION 08/15/2024 [facility] DATE CREATED AUTHOR AUTHOR'S ORGANIZ ATION 04/15/2025 [facility] EPIC REASON FOR VISIT (unrecogniz ed section and content) Reason Comments Initial Visit Reason Comments Miscarriage Reason Comments Post-op Visit Reason Comments Routine Visit Care Teams (unrecognized sec tion and content) Team Status: Inactive Member Role Status Dates Jennifer Huston NP-C Attending Provider Active [employer] Relationship Specialty Start Date End Date Vaishali Zapata MD [address] [place] [address] PCP - General Family Medicine 02/04/23 [employer] Relationship Specialty Start Date End Date Vaishali Zapata MD [address] [place] [address] PCP - General Family Medicine 02/04/23 Team Status: Active Member Role Status Dates PHYSICIAN NO FAMILY Primary Care Provider Active Team Status: Inactive Member Role Status Dates PHYSICIAN NO FAMILY Primary Care Provider Active Start: August 10, 2024 End: August 10, 2024 Jose Rodriguez DO Attending Provider Active Start : August 10, 2024 End: August 10, 2024 [employer]er Relationship Specialty Start Date End Date Unallocated, Arjun Vo MD [facility] [address] [place] [address] PCP - General Family Medicine 08/03/24 Home [employer] Service [employer]er Relationship Specialty Start Date End Date Unallocated, Arjun Vo MD [facility] [place] [address] PCP - General Family Medicine 08/03/24 [employer]er Relationship Specialty Start Date End Date Unallocated, Arjun Vo MD [facility] [address] [place] [address] PCP - General Family Medicine 08/03/24 Home [employer] Service [employer]er Relationship Specialty Start Date End Date Unallocated, [place] [address] PCP - General Family Medicine 08/03/24 [employer]er Relationship Specialty Start Date End Date Unallocated, Arjun Vo MD [address] [place] [address] PCP - General [facility] 08/03/24 Home [employer] Service Cleaner Relationship Specialty Start Date End Date Unallocated, Arjun Vo MD [address] [place] [address] PCP - [facility] 08/03/24 Home [employer] Service [employer]er Relationship Specialty Start Date End Date Unallocated, Arjun Vo MD [address] [place] [address] PCP - [facility] 08/03/24 Home [employer] Service [employer]er Relationship Specialty Start Date End Date Unallocated, Arjun Vo MD [address] [place] [address] PCP - [facility] 08/03/24 Goals (unrecognized section and content) Goals [...] BE BASED ON THE PRIMARY CLINICAL RECORDS. [employer] [facility]. provides no warranty or guarantee of the accuracy or completeness of information in this document.
--- OUTSIDE RECORDS SUMMARY | 2025-04-27 09:07 | XMS_ITS ---
Author Organization [facility] [facility] Source Produ ction (ClinicalSummary Clone) Address Unknown Care Team Providers Care Associate Store Leader Name Role Phone Unavailable Primary Care Physician Unavailab le Results * [UNITY] ANEUPLOIDY NIPT Performed by: [employer] Value Range Date Fraction 12.4% 01/13/2025 [...]
--- OUTSIDE RECORDS SUMMARY | 2025-04-27 09:07 | XMS_ITS | Patient Health Record ---
Author Organization The [facility] in [place] Address [address] [place] [address] Care Team Providers Care Allergist/Immunologist Name Role Phone Jennifer See Primary Care Provider Allergies No Known Allergies [...] Urine Culture, Routine Performed at: - [facility] Urine Culture, Routine Urine Culture, Routine [address] [place] [address] [phone] Urine Culture, Routine Urine Culture, Routine Java Consultant: Riky Harris PhD, Phone: [phone] Urine Culture, Routine Performing Lab: see note SEE REPORT - [employer] Supervisor Id information not found for OBX-specific promotions executive producer legend LC - [facility] LB Box Test Reviewed date:07/23/2024 08:22:00 AM Interpretation: Performing Lab: Notes/Report: UNITY BOX [facility] , BOX Test Sent Out UNITY BOX Test Reference Lab UNITY BOX Test Date Sent 07/21/24 Performing Lab: see note ML - [facility] LB PREG QUANT HCG Reviewed date:08/03/2024 08:30:13 AM Interpretation: Performing Lab: Notes/Report: [facility] , HCG Quantitative 1656 15,000-200,000 6-8 WEEKS 10,000-100,000 2-3 MONTHS 10,000-100,000 5-6 WEEKS 1,000-50,000 4-5 WEEKS 100-5,000 2-3 WEEKS 50-500 1-2 WEEKS 5-50 0.2-1 WEEK 500-10,000 3-4 WEEKS Performing Lab: see note ML - [facility] PROF 14(COMP METB) Reviewed date:08/03/2024 08:30:13 AM Interpretation: Performing Lab: Notes/Report: [facility] , Sodium 140 136-145 mmol/L Potassium [...] Performing Lab: see note ML - [facility] US OB transvaginal Reviewed date:08/03/2024 08:30:13 AM Interpretation: Performing Lab: Notes/Report: Source Facility: [facility]-[address] [place] [address] [address] Ultrasound Report Signed Patient: VIMAL FUNES MR#: [id number] : 2000 Acct:[id number] Age/Sex: 24 / F ADM Date: 08/02/24 Loc: ER Attending Dr: Ordering Physician: Kishan Cosby Date of Service: 08/02/24 Procedure(s): US OB transvaginal Accession Number(s): [id number] cc: JENNIFER SEE ; Kishan Marker The [place] [address] Patient Name: VIMAL FUNES MRN: [id number] date: 2000 Sex: F Assigned Patient Location: ER Current Patient Location: ER Accession/Order Number: [id number] Exam Date: 08/02/2024 19:17 Report Date: 08/02/2024 21:24 At the request of: KISHAN COSBY Procedure: US OB transvaginal EXAM: US OB [...] M.D. Signed By: 08/02/242126 DD/ 23 TD/TT: Steward/Stewardess Banquet: [place] [address] Ultrasound Report Signed Patient: VIMAL FUNES MR#: [id number] : 2000 Acct:[id number] Age/Sex: 24 / F ADM Date: 08/02/24 Loc: ER Attending Dr: Ordering Physician: Kishan Cosby Date of Service: 08/02/24 Procedure(s): US OB transvaginal Accession Number(s): [id number] cc: JENNIFER SEE ; Kishan Marker The [place] [id number] Patient Name: VIMAL FUNES MRN: [id number] date: 2000 Sex: F Assigned Patient Location: ER Current Patient Location: ER Accession/Order Number: [id number] Exam Date: 19:17 Report Date: 08/02/2024 21:24 [...] M.D. Signed By: 08/02/242126 DD/ 23 TD/TT: Steward/Stewardess Banquet: CBC AUTO DIFF Reviewed date:08/10/2024 08:58:56 AM Interpretation: Performing Lab: Notes/Report: [facility] , White Blood Count 8.9 4.0-11.0 [...] 3/uL Performing Lab: see note ML - [facility] US OB transvaginal Reviewed date:08/10/2024 08:58:56 AM Interpretation: Performing Lab: Notes/Report: Source Facility: [place] [address] Ultrasound Report Signed Patient: VIMAL FUNES MR#: [id number] : 2000 Acct:[id number] Age/Sex: 24 / F ADM Date: 08/10/24 Loc: SURGOUT Attending Dr: Mackenzie Rodriguez D.O. Ordering Physician: Mackenzie Rodriguez D.O. Date of Service: 08/10/24 Procedure(s): US OB transvaginal Accession Number(s): [id number] cc: JENNIFER SEE ; Mackenzie Rodriguez D.O. [place] [address] Patient Name: VIMAL FUNES MRN: [id number] date: 2000 Sex: F Assigned Patient Location: SURGOUT Current Patient Location: SURGOUT Accession/Order Number: [id number] Exam Date: 08/10/2024 08:10 Report Date: 08/10/2024 [...] M.D. Signed By: 08/10/2447 DD/ 3 TD/TT: Steward/Stewardess Banquet: [place] [address] Ultrasound Report Signed Patient: VIMAL FUNES MR#: [id number] : 2000 Acct:[id number] Age/Sex: 24 / F ADM Date: 08/10/24 Loc: SURGOUT Attending Dr: Mackenzie Rodriguez D.O. Ordering Physician: Mackenzie Rodriguez D.O. Date of Service: 08/10/24 Procedure(s): US OB transvaginal Accession Number(s): [id number] cc: JENNIFER SEE ; Mackenzie Rodriguez D.O. [place] [id number] Patient Name: VIMAL FUNES MRN: [facility]:[id number] date: 2000 Sex: F Assigned Patient Location: SURGOUT Current Patient Location: SURGOUT Accession/Order Number: [id number] Exam Date: 08:10 Report Date: 08/10/2024 08:44 [...] Herrera M.D. Signed By: 08/10/2447 DD/ TD/TT: Steward/Stewardess Banquet: PREG QUANT HCG Reviewed date:11/22/2024 08:59:16 AM Interpretation: Performing Lab: Notes/Report: [facility] , HCG Quantitative [address] 5-50 0.2-1 WEEK 100-5,000 2-3 WEEKS 1,000-50,000 4-5 WEEKS 10,000-100,000 2-3 MONTHS 500-10,000 3-4 WEEKS 15,000-200,000 6-8 WEEKS 10,000-100,000 5-6 WEEKS 50-500 1-2 WEEKS Performing Lab: see note ML - The [facility] LB DRUG SCREEN RAPID (URINE) Reviewed date:01/07/2025 01:05:16 PM Interpretation: Performing Lab: Notes/Report: [facility] , Cannabinoid Screen Urine NEGATIVE NEGATIVE [...] Performing Lab: see note ML - The [facility] LB Box Test Reviewed date:01/07/2025 01:05:16 PM Interpretation: Performing Lab: Notes/Report: JagTag BOX [facility] , BOX Test Sent Out JagTag BOX Test Reference Lab JagTag BOX Test Date Sent 01-05-25 Performing Lab: see note ML - [facility] LB IGP,Aptima HPV,Age Gdln Reviewed date:02/25/2025 03:13:18 PM Interpretation: Performing Lab: Notes/Report: SPATULA-ALONE ENDOCERVIX [facility] , Age Gdln ACOG Testing Note . Jenise Byrne MD, Age Algo ACOG Yris... 21-29 01 Clinician Provided Cytology Information TESTS RESULT FLAG UNITS REF RANGE LAB <-Panic Low,>-Panic High,A-Abnormal,AA-Cri tical Abnormal L-Low Normal,H-High Normal,LL-Alert Low,HH-Alert High FLAG LEGEND: Source.............End ocervix Performed at: No. of containers..01 ThinPrep Vial 01 =G Camryn Samaniego [address] [place] [address] IGP, rfx Aptima HPV ASCU Note . Java Consultant: Jenise Byrne MD, Phone: [phone] NEGATIVE FOR INTRAEPITHELIAL LESION OR MALIGNANCY. <-Panic Low,>-Panic High,A-Abnormal,AA-Cri tical Abnormal occur. Performed at: [facility] uterine cervix. It is not a diagnostic procedure and The Pap smear is a screening test designed to aid in the should not be used as the sole means of detecting cervical Performed at: =[facility] This liquid based ThinPrep(R) pap test was screened with cancer. Both false-positive and false-negative reports do Satisfactory for evaluation. Endocervical and/or squamous metaplastic Performed at: L-Low Normal,H-High Normal,LL-Alert Low,HH-Alert High Whitney Alvarez Head Operator (ASCP) cells (endocervical component) are present. 02 [facility] Java Consultant: Jenise Byrne MD, Phone: [phone] Note: Note [address] [place], [place] [phone] [address] [place] [address] . 02 Test Methodology: Note 02 TESTS RESULT FLAG UNITS REF RANGE LAB Performed by: 02 The HPV DNA reflex criteria were not met with this specimen Specimen adequacy: 02 FLAG LEGEND: Jenise Byrne MD, DIAGNOSIS: 02 detection of premalignant and malignant conditions of the the use of an image guided system. [address] [facility], [place] [phone] result therefore, no HPV testing was performed. Performing Lab: see note LC - [facility] LB US OB cervical length Reviewed date:03/14/2025 10:39:54 AM Interpretation: Performing Lab: Notes/Report: Source Facility: [place] [address] Ultrasound Report Signed Patient: VIMAL FUNES MR#: [id number] : 2000 Acct:[id number] Age/Sex: 24 / F ADM Date: 03/08/25 Loc: US Attending Dr: Mackenzie Rodriguez D.O. Ordering Physician: Mackenzie Rodriguez D.O. Date of Service: 03/08/25 Procedure(s): US OB cervical length Accession Number(s): [id number] cc: JENNIFER SEE ; Mackenzie Rodriguez D.O. The [place] [address] Patient Name: VIMAL FUNES MRN: [id number] date: 2000 Sex: F Assigned Patient Location: US Current Patient Location: US Accession/Order Number: [id number] Exam Date: 03/08/2025 20:31 Report Date: 03/08/2025 [...] Knapp M.D. 03/08/2025 8:36 PM Dictation Location: [facility] Electronically authenticated by: [id number] Y Date: 03/08/2025 20:36 Dictated By: Shiavm Knapp D.O. Signed By: 03/08/252037 DD/ 35 TD/TT: Steward/Stewardess Banquet: [place] [address] Ultrasound Report Signed Patient: VIMAL FUNES MR#: [id number] : 2000 Acct:[id number] Age/Sex: 24 / F ADM Date: 03/08/25 Loc: US Attending Dr: Mackenzie Rodriguez D.O. Ordering Physician: Mackenzie Rodriguez D.O. Date of Service: 03/08/25 Procedure(s): US OB cervical length Accession Number(s): [id number] cc: JENNIFER SEE ; Mackenzie Rodriguez D.O. [place] [id number] Patient Name: VIMAL FUNES MRN: [id number] date: 2000 Sex: F Assigned Patient Location: US Current Patient Location: US Accession/Order Number: [id number] Exam Date: 03/08/2025 20:31 Report Date: 03/08/2025 20:36 At the request of: MACKENZIE RODRIGUEZ DO Procedure: US OB anatomy Ultrasound assessmen t of cervical length Cervical length is 4 .0 cm. Cervical os is closed. US/US OB cervical length IMPRESSION: Cervical length of 4.0 cm. Ultrasound assessmen t of anatomy HISTORY: Anatomic survey Fetus in [...] assessment of the spine and extremities. There i s some limitations of the nose and lip assessment due to position. The aspirate age 19 weeks 3 days. Estimated delivery 07/30/2025. IMPRESSION: Suboptim al assessment of the nose and lips spine and extremities due to positio n. Remaining anatomy unremarkable. Single live intrauterine gestati on at 19 weeks 3 days. Impression dictated by: Shivam Knapp M.D. 03/08/2025 8:36 PM Dictation Location: [place] [address] Electronically authenticated by: [id number] Y Date: 03/08/2025 20:36 Dictated By: Shivam Knapp D.O. Signed By: 03/08/252037 DD/ 35 TD/TT: Steward/Stewardess Banquet: US OB anatomy Reviewed date:03/14/2025 10:39:54 AM Interpretation: Performing Lab: Notes/Report: Source Facility: [place] [address] [place] [address] Ultrasound Report Signed Patient: VIMAL FUNES MR#: [id number] : 2000 Acct:[id number] Age/Sex: 24 / F ADM Date: 03/08/25 Loc: US Attending Dr: Mackenzie Rodriguez D.O. Ordering Physician: Mackenzie Rodriguez D.O. Date of Service: 03/08/25 Procedure(s): US OB anatomy Accession Number(s): [id number] cc: JENNIFER SEE ; Mackenzie Rodriguez D.O. The [place] [id number] Patient Name: VIMAL FUNES MRN: [id number] date: 2000 Sex: F Assigned Patient Location: US Current Patient Location: US Accession/Order Number: [id number] Exam Date: 03/08/2025 20:31 Report Date: 03/08/2025 [...] Knapp M.D. 03/08/2025 8:36 PM Dictation Location: [place] [address] Electronically authenticated by: [id number] Y Date: 03/08/2025 20:36 Dictated By: Shivam Knapp D.O. Signed By: 03/08/252037 DD/ 35 TD/TT: Steward/Stewardess Banquet: [place] [address] Ultrasound Report Signed Patient: VIMAL FUNES MR#: [id number] : 2000 Acct:[id number] Age/Sex: 24 / F ADM Date: 03/08/25 Loc: US Attending Dr: Mackenzie Rodriguez D.O. Ordering Physician: Mackenzie Rodriguez D.O. Date of Service: 03/08/25 Procedure(s): US OB anatomy Accession Number(s): [id number] cc: JENNIFER SEE ; Mackenzie Rodriguez D.O. [place] [address] Patient Name: VIMAL FUNES MRN: [id number] date: 2000 Sex: F Assigned Patient Location: US Current Patient Location: US Accession/Order Number: [id number] Exam Date: 03/08/2025 20:31 Report Date: 03/08/2025 20:36 At the request of: MACKENZIE RODRIGUEZ DO Procedure: US OB anatomy Ultrasound assessmen t of cervical length Cervical length is 4 .0 cm. Cervical os is closed. US/US OB anatomy IMPRESSION: Cervical length of 4.0 cm. Ultrasound assessmen t of anatomy HISTORY: Anatomic survey Fetus in [...] assessment of the spine and extremities. There i s some limitations of the nose and lip assessment due to position. The aspirate age 19 weeks 3 days. Estimated delivery 07/30/2025. IMPRESSION: Suboptim al assessment of the nose and lips spine and extremities due to positio n. Remaining anatomy unremarkable. Single live intrauterine gestati on at 19 weeks 3 days. Impression dictated by: Shivam Knapp M.D. 03/08/2025 8:36 PM Dictation Location: [employer] Electronically authenticated by: [id number] Y Date: 03/08/2025 20:36 Dictated By: Shivam Knapp D.O. Signed By: 03/08/252037 DD/ 35 TD/TT: Steward/Stewardess Banquet: HCV Antibody RFX to Quant PC R Reviewed date:01/07/2025 01:05:16 PM Interpretation: Performing Lab: Notes/Report: [facility] , HCV Ab Non Reactive Non Reactive Interpretation: Comment . suspected (which may be delayed in an immunocompromised Performed at: [address] [phone] Java Consultant: Andrew Harris PhD, Phone: [phone] Not infected with HCV unless early or acute infection is infection. individual), or other evidence exists to indicate HCV Performing Lab: see note [facility] HIV Ab/p24 Ag with Reflex Reviewed date:01/07/2025 01:05:16 PM Interpretation: Performing Lab: Notes/Report: [facility] , HIV Ab/p24 Ag Screen Non Reactive Non Reactive Performed at: [facility] HIV-1/HIV-2 antibodies and HIV-1 p24 antigen were NOT Java Consultant: Andrew Harris PhD, Phone: [phone] HIV Negative [address] [place] [address] [phone] detected. There is no laboratory evidence of HIV infection. Performing Lab: see note [facility] RUBELLA AB IGG Reviewed date:01/07/2025 01:05:16 PM Interpretation: Performing Lab: Notes/Report: [facility] , Rubella Antibodies, IgG 1.57 Immune > 0.99 index Performed at: [facility] Immune >0.99 Equivocal 0.90 - 0.[address] [place] [address] [phone] Non-immune <0.90 Java Consultant: Andrew Harris PhD, Phone: [phone] Performing Lab: see note [facility] GLYCOHEMOGLOBIN A1C Reviewed date:01/07/2025 01:05:16 PM Interpretation: Performing Lab: Notes/Report: [facility] , Glycohemoglobin A1C 5.0 4.5-6.2 % > 7.0 ADA RECOMMENDED LIMIT 4.0 - 6.0 ADA THERAPEUTIC TARGET < 7.0 ACTION SUGGESTED Estimated Average Glucose 97 Performing Lab: see note ML - The [facility] LB CBC AUTO DIFF Reviewed date:01/07/2025 01:05:16 PM Interpretation: Performing Lab: Notes/Report: [facility] , White Blood Count 9.2 4.0-11.0 [...] Performing Lab: see note ML - The [facility] LB PREG QUANT HCG Reviewed date:11/20/2024 01:38:35 PM Interpretation: Performing Lab: Notes/Report: [facility] , HCG Quantitative 6254 10,000-100,000 2-3 MONTHS 5-50 0.2-1 WEEK 500-10,000 3-4 WEEKS 100-5,000 2-3 WEEKS 15,000-200,000 6-8 WEEKS 10,000-100,000 5-6 WEEKS 50-500 1-2 WEEKS 1,000-50,000 4-5 WEEKS Performing Lab: see note ML - [facility] PREG QUANT HCG Reviewed date:08/20/2024 11:36:34 AM Interpretation: Performing Lab: Notes/Report: [facility] Quantitative 6 5-50 0.2-1 WEEK 500-10,000 3-4 WEEKS 15,000-200,000 6-8 WEEKS 10,000-100,000 2-3 MONTHS 1,000-50,000 4-5 WEEKS 50-500 1-2 WEEKS 100-5,000 2-3 WEEKS 10,000-100,000 5-6 WEEKS Performing Lab: see note ML - The [facility] LB PREG QUANT HCG Reviewed date:08/10/2024 08:58:56 AM Interpretation: Performing Lab: Notes/Report: [facility] , [facility] Quantitative 240 50-500 1-2 WEEKS 1,000-50,000 4-5 WEEKS 15,000-200,000 6-8 WEEKS 10,000-100,000 2-3 MONTHS 100-5,000 2-3 WEEKS 500-10,000 3-4 WEEKS 5-50 0.2-1 WEEK 10,000-100,000 5-6 WEEKS Performing Lab: see note ML - The [facility] LB CBC AUTO DIFF Reviewed date:08/03/2024 08:30:13 AM Interpretation: Performing Lab: Notes/Report: [facility] , White Blood Count 11.1 4.0-11.0 [...] 0.00-0.03 10 3/uL Performing Lab: see note [facility] HBsAg Screen Reviewed date:07/23/2024 08:22:00 AM Interpretation: Performing Lab: Notes/Report: [facility] , HBsAg Screen Negative Negative Java Consultant: Andrew Harris PhD, Phone: [phone] [address], [place] [phone] Performed at: [facility] Performing Lab: see note [facility] HCV Antibody RFX to Quant PC R Reviewed date:07/23/2024 08:22:00 AM Interpretation: Performing Lab: Notes/Report: [facility] , HCV Ab Non Reactive Non Reactive Interpretation: Comment . individual), or other evidence exists to indicate HCV infection. suspected (which may be delayed in an immunocompromised Not infected with HCV unless early or acute infection is Performing Lab: see note [facility] Rapid Plasma Reagin, Quant Reviewed date:07/23/2024 08:22:00 AM Interpretation: Performing Lab: Notes/Report: [facility] , Rapid Plasma Reagin, Quant Non Reactive NonRea<1:1 titer infection, a reflex cascade that includes both RPR and a treponema-specific assay should be utilized, such as Performed at: [facility] screening and diagnosis of syphilis. This test is Treponema pallidum (Syphilis) Screening [place] ([id number]) or Java Consultant: Andrew Harris PhD, Phone: [phone] Please Note: This test does not meet current guidelines for Rapid Plasma Reagin (RPR) Test With Reflex to Quantitative (002016). RPR and Confirmatory Treponema pallidum Antibodies [address] [place] [address] [phone] treated for syphilis infection. To screen for syphilis intended for following treatment response in patients being [facility]forming Lab: [facility] HIV Ab/p24 Ag with Reflex Reviewed date:07/23/2024 08:22:00 AM Interpretation: Performing Lab: Notes/Report: [facility] , HIV Ab/p24 Ag Screen Non Reactive Non Reactive detected. There is no laboratory evidence of HIV infection. HIV-1/HIV-2 antibodies and HIV-1 p24 antigen were NOT Java Consultant: Andrew Harris PhD, Phone: [phone] HIV Negative Performed at: [address] [id number] Performing Lab: see note [facility] LB Type and Screen Reviewed date:07/23/2024 08:22:00 AM Interpretation: Performing Lab: Notes/Report: [facility] , Blood Type A Positive Antibody Screen NEGATIVE RUBELLA AB IGG Reviewed date:07/23/2024 08:22:00 AM Interpretation: Performing Lab: Notes/Report: [facility] , Rubella Antibodies, IgG 1.57 Immune > 0.99 index Non-immune <0.90 Equivocal 0.90 - 0.99 Performed at: [facility] Immune >0.[address] [place] [phone] Java Consultant: Andrew Harris PhD, Phone: [phone] Performing Lab: see note [facility] GLYCOHEMOGLOBIN A1C Reviewed date:07/23/2024 08:22:00 AM Interpretation: Performing Lab: Notes/Report: [facility] , Glycohemoglobin A1C 4.9 4.5-6.2 % > 7.0 ACTION SUGGESTED ADA RECOMMENDED LIMIT 4.0 - 6.0 ADA THERAPEUTIC TARGET < 7.0 Estimated Average Glucose 94 Performing Lab: see note - [facility] DRUG SCREEN RAPID (URINE) Reviewed date:07/23/2024 08:22:00 AM Interpretation: Performing Lab: Notes/Report: REEFLEX IF POSITIVE [facility] , Cannabinoid Screen Urine NEGATIVE NEGATIVE [...] Performing Lab: see note ML - The [facility] LB CBC AUTO DIFF Reviewed date:07/23/2024 08:22:00 AM Interpretation: Performing Lab: Notes/Report: [facility] , White Blood Count 10.6 4.0-11.0 [...] Performing Lab: see note ML - [facility] US OB incomplete anatomy Reviewed date:03/25/2025 09:01:39 AM Interpretation: Performing Lab: Notes/Report: Source Facility: [place] [address] Ultrasound Report Signed Patient: VIMAL FUNES MR#: [id number] : 2000 Acct:[id number] Age/Sex: 24 / F ADM Date: 03/23/25 Loc: US Attending Dr: Mackenzie Rodriguez D.O. Ordering Physician: Mackenzie Rodriguez D.O. Date of Service: 03/23/25 Procedure(s): US OB incomplete anatomy Accession Number(s): [id number] cc: JENNIFER SEE ; Mackenzie Rodriguez D.O. [place] [address] Patient Name: VIMAL FUNES MRN: [id number] date: 2000 Sex: F Assigned Patient Location: Current Patient Location: US Accession/Order Number: [id number] Exam Date: 03/25/2025 08:23 Report Date: 03/25/2025 [...] Brown M.D. 03/25/2025 8:25 AM Dictation Location: [place] [address] Electronically authenticated by: [id number] Y Date: 03/25/2025 08:25 Dictated By: Meghana Brown M.D. Signed By: 03/25/25826 DD/ 4 TD/TT: Steward/Stewardess Banquet: [place] [address] Ultrasound Report Signed Patient: VIMAL FUNES MR#: [id number] : 2000 Acct:[id number] Age/Sex: 24 / F ADM Date: 03/23/25 Loc: US Attending Dr: Mackenzie Rodriguez D.O. Ordering Physician: Mackenzie Rodriguez D.O. Date of Service: 03/23/25 Procedure(s): US OB incomplete anatomy Accession Number(s): [id number] cc: JENNIFER SEE ; Mackenzie Rodriguez D.O. [place] [address] Patient Name: VIMAL FUNES MRN: [id number] date: 2000 Sex: F Assigned Patient Location: Current Patient Location: Accession/Order Number: [id number] Exam Date: 03/25/2025 08:23 Report Date: 03/25/2025 08:25 At the request of: MACKENZIE RODRIGUEZ DO Procedure: US OB incomplete anatomy ULTRASOUND OB INCOMPLETE ANATOMY COMPARISON: 03/08/2025 CLINICAL DATA: Suboptimal visualization of the facial features, spine and extremities. There is a single li ve intrauterine gestation in transverse presentation, head to the maternal righ t. The amniotic fluid volume is subjectively normal. The cervix, as visualize d appears closed. There is cardiac and somatic activity with heart rate of 158 beats per minutes. Survey of the spine on today's study reveal ed no abnormalities. The facial features and extremities were still not well visualized due to position. US/US OB incomplete anatomy IMPRESSION: CONTINUED LIMITED VISUALIZATION OF THE EXTREMITIES AND FACIAL FEATURES. Impression dictated by: Meghana Brown M.D. 03/25/2025 8:25 AM Dictation Location: [place] [address] Electronically authenticated by: [id number] Y Date: 03/25/2025 08:25 Dictated By: Meghana Brown M.D. Signed By: 03/25/2527 DD/ 4 TD/TT: Steward/Stewardess Banquet: Type and Screen Reviewed date:01/07/2025 01:05:16 PM Interpretation: Performing Lab: Notes/Report: [facility] , Blood Type A Positive Antibody Screen NEGATIVE Urine Culture, Routine Reviewed date:01/07/2025 01:05:16 PM Interpretation: Performing Lab: Notes/Report: [facility] , Urine Culture, Routine See Below For Report Urine Culture, Routine Urine Culture, Routine Mixed urogenital tami Urine Culture, Routine Urine Culture, Routine 50,000-100,000 co lony forming units per mL Urine Culture, Routine Urine Culture, Routine [facility] Urine Culture, Routine Urine Culture, Routine [address] [place] [phone] Urine Culture, Routine Urine Culture, Routine Java Consultant: Riky Harris PhD, Phone: [phone] Urine Culture, Routine Performing Lab: see note SEE REPORT - [employer] Supervisor Id information not found for OBX-specific promotions executive producer legend LC - [facility] LB HBsAg Screen Reviewed date:01/07/2025 01:05:16 PM Interpretation: Performing Lab: Notes/Report: [facility] , HBsAg Screen Negative Negative Java Consultant: Andrew Harris PhD, Phone: [phone] Performed at: [address] [id number] Performing Lab: see note LC - [facility] LB Rapid Plasma Reagin, Quant Reviewed date:01/07/2025 01:05:16 PM Interpretation: Performing Lab: Notes/Report: [facility] , Rapid Plasma Reagin, Quant Non Reactive NonRea<1:1 titer Treponema pallidum (Syphilis) Screening [place] ([id number]) or treated for syphilis infection. To screen for syphilis Java Consultant: Andrew Harris PhD, Phone: [phone] treponema-specific assay should be utilized, such as RPR and Confirmatory Treponema pallidum Antibodies ([id number]). Rapid Plasma Reagin (RPR) Test With Reflex to Quantitative Performed at: [facility] Please Note: This test does not meet current guidelines for infection, a reflex cascade that includes both RPR and a [address], [place] [id number] screening and diagnosis of syphilis. This test is intended for following treatment response in patients being Performing Lab: see note - [facility] Reason For Referral No [...] 06/05/2024 Encounters Encounter Location Date Provider Diagnosis [address] [address] 06/05/2024 Jennifer See Z33.1 and Wellness examination Z00.00 Assessments Encounter [...] ACCESS PPO PLUS LOCAL PLAN [address] [place] [address] [id number] Vimal Funes Self - patient is the insured [employer] [place] [employer] [address] [place] [address] [phone] [id number] Vimal Funes Self - patient is the insured Medical (General) History Medical History History ICD Code lead poisoning Surgical History Surgery Date(Month/Year) ear tubes
[2025-04-27 10:10] LABS: Hematocrit 40.0 % (36.0-48.0); Hemoglobin 13.6 g/dL (12.0-16.0); Immature Granulocytes Abs Auto 0.04 10^3/uL (0.00-0.03); Immature Granulocytes Pct Auto 0.3 % (0.0-0.5); Lymphocytes Absolute Auto 1.4 10^3/uL (1.2-3.8); Mean Corpuscular HGB Conc 34.0 g/dL (29.9-35.2); Mean Corpuscular Hemoglobin 31.7 pg (26.7-34.0); Mean Corpuscular Volume 93.2 fL (81.0-99.0); Platelet Count 202 10^3/uL (150-450); Red Blood Count 4.29 10^6/uL (4.20-5.40); White Blood Count 12.5 10^3/uL (4.0-11.0)
[2025-04-27 10:44] LABS: Glucose 1 Hour 171 mg/dL (<130)
== END 2025-04-27 09:03 | disposition home or self-care (01) ==
LOC: LAB 09:05
PROVIDERS: PCP Nurse Practitioner Family; Visit Provider Physician Assistant
DX: Z13.1 Encounter for screening for diabetes mellitus (principal)
CPT/HCPCS: 36415; 82950; 85025

== ENCOUNTER 2025-05-04 07:06 | Outpatient (OUT) | payer BC, OTHER, SELFPAY ==
--- OUTSIDE RECORDS SUMMARY | 2024-06-05 04:30 | XMS_ITS ---
Author Organization [facility] [place] Address [address] [place] [address] Care Team Providers Care Check Clerk Name Role Phone Jennifer Butts Primary Care [...] 06/05/2024 Encounters Encounter Location Date Provider Diagnosis [facility] [address] [place] [address] 06/05/2024 Jennifer Butts Z33.1 and Wellness examination [...] Amber PIZANO MDOB: [birth year] (24 yo F)Acc No.[id number]:06/05/2024 New Patient Patient: Amber MADERA Provider: Lashawn Butts ([facility]), RECRUITING ADMINISTRATOR :2000 A ge:24 Y S ex:Female Date:06/05/2024 Address:[address] [place] [address] Check In:08:08 AM ESTCheck O ut:08:44 AM [...] year old 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 (Check Out) true * Provider: Lashawn Butts ([facility]), RECRUITING ADMINISTRATOR Date: 0 06/05/2024 Generated for Printi ng/Faxing/eTransmitting on: 0 05/04/2025 07:08 AM EDT History and Physical Notes * HPI (History of Present Illness) Category Sub-Category Detail Notes Category Not es General OBGYN Michael , have 2 year old 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
--- OUTSIDE RECORDS SUMMARY | 2025-04-25 14:50 | XMS_ITS | Encounter Summary ---
Author Organization [facility] Address [address] [place] [address] Care Team Providers Care Thread Inspector Name Role Phone Unallocated, Noms Provider Primary Care Provi krissy Reason for Visit * Reason Comments Routine Visit Encounter Details Date Type Department Care Team (Late st Contact Info) Description 04/25/2025 2:50 PM EDT Office Visit ARJUN PANG [address] [facility] [place] [address] Rossana Ramos PA [address] [facility] [address] [place], [facility]11 Second trimester ([facility]); 27 weeks gestation of ([facility]); induced hypertension, antepartum ([facility]) Social History Tobacco Use Types Packs/Day Years [...] History of blood transfusion Lead poisoning Miscarriage ([facility]) Nonsmoker Post depression HISTORY PAST MEDICAL HISTORY [...] ASSESSMENT & PLAN ICD-10-CM 1. Second trimester ([facility]) Z34.92 2. 27 weeks gestation of ([facility]) Z3A.27 Patient presents for BP check. BP [...] PM EDT Routine [facility] [address] [facility] [place] [address] Jose Rodriguez DO [address] [facility] [address] [place] [place] [address] Scheduled Orders Name Type Priority Associated Diagnoses [...] this encounter Visit Diagnoses Diagnosis Second trimester ([facility]) state, incidental 27 weeks gestation of ([facility]) induced hypertension, antepartum ([facility]) Transient hypertension of , antepartum documented in this encounter Care Teams Thread Inspector Relationship Specialty Start Date End Date Unallocated, Noms Provider, [address] [place] [address] PCP - General Family Medicine 08/03/24 documented as of this encounter
--- OUTSIDE RECORDS SUMMARY | 2025-04-30 10:50 | XMS_ITS | Encounter Summary ---
Author Organization [facility] Address [address] [place] [address] Care Team Providers Care Marine Electrician Apprentice Name Role Phone Unallocated, Noms Provider Primary Care Provi krissy Reason for Visit * Reason Comments Blood Pressure Check Encounter Details Date Type Department Care Team (Latest Contact Info) Description 04/30/2025 10:50 AM EDT Routine ARJUN [place] OBGYKeegan [address] [place] [address] Rossana Ramos PA [address] [place], [facility]11 BP check; -induced hypertension in third trimester ([facility]); Gestational diabetes mellitus (GDM) in third trimester, gestational diabetes method of control unspecified ([facility]-HCC) Social History Tobacco Use Types Packs/Day Years [...] on file documented as of this encounter Last Filed Vital Signs Vital Sign Reading Time Taken Comments Blood Pressure 140/94 04/30/2025 11:52 AM EDT Pulse - - Temperature - - Respiratory Rate - - Oxygen Saturation - - Inhaled Oxygen Concentration - - Weight 79.4 kg (175 lb) 04/30/2025 11:52 AM EDT Height - - Body Mass Index 31 01/06/2023 12:00 PM EDT documented in this encounter Progress Notes * TRUE Argueta - 04/30/2025 10:50 AM EDT Reason for Appointment: Patient ID: Amber Funes is a 25 y.o. female who presents for Blood Pressure Check Patient presents today for Return OB appointment. and Medication Follow Up appointment. MEDICATIONS Current Outpatient Medications Medication Instructions labetalol (NORMODYNE) 200 mg, Oral, 2 times daily labetalol (NORMODYNE) 300 mg, Oral, 3 times daily loratadine (CLARITIN) 10 mg, Daily [...] History of blood transfusion Lead poisoning Miscarriage ([facility]) Nonsmoker Post depression HISTORY PAST MEDICAL HISTORY SOCIAL HISTORY Past Medical History: Diagnosis Date Anemia Gestational diabetes ([facility]-HCC) History of blood transfusion Lead poisoning Miscarriage ([facility]) Nonsmoker Post depression /anxiety Social History Tobacco [...] (exact date). ASSESSMENT & PLAN ICD-10-CM 1. BP check Z01.30 POCT urinalysis dipstick manually resulted 2. -induced hypertension in third trimester ([facility]) O13.3 US biophysical profile wnon stress test US OB follow up transabdominal approach labetalol (Normodyne) 300 MG tablet 3. Gestational diabetes mellitus (GDM) in third trimester, gestational diabetes method of control unspecified ([facility]) O24.419 US biophysical profile w non stress test US OB follow up transabdominal approach Return OB: Patient presents today for a routine obstetrics appointment. Patient is currently 28w1d . Patient states she is doing well but has complaints of being tired due to current . Patient has verbalizes frequent movement. labor precautions was discussed/given and patient was instructed to perform kick counts three times a day. Patient presents for BP check from last week, BP improved but still elevated. We will increase labetalol to 300mg Tid. Pt reminded to have blood work and 24 hour urine completed. She will start NST and BPP this week as well. Patient verbalized understanding and agrees with plan of care Denies headaches or blurry vision, feels better than last week Orders Placed This Encounter Procedures US biophysical profile w non stress test US OB follow up transabdominal approach POCT urinalysis dipstick manually resulted Follow Up: Patient is to return to office in 2 week for routine OB appointment. Documented by TRUE Argueta on behalf of: TRUE Argueta documented in this encounter Plan of Treatment Upcoming Encounters Date Type Department Care Team (Late st Contact Info) Description 05/14/2025 2:40 PM EDT Routine [facility]ia OBGYN [address] [place] [phone] MichaelJose barrios, [address] [place] [place] [address] Scheduled Orders Name Type Priority Associated Diagnoses Orde r Schedule US biophysical profile w non stress test Imaging Routine -induced hypertension in third trimester ([facility]CC) Gestational diabetes mellitus (GDM) in third trimester, gestational diabetes method of control unspecified ([facility]-HCC) Expected: 04/30/2025 (Approximate), Expires: 10/31/2025 US OB follow up transabdominal approach Imaging Routine -induced hypertension in third trimester ([facility]-HCC) Gestational diabetes mellitus (GDM) in third trimester, gestational diabetes method of control unspecified ([facility]-HCC) Expected: 04/30/2025, Expires: 08/30/2025 documented as of this encounter Procedures Procedure Name Priority Date/Time Associated Diagnosis Comments POCT URINALYSIS DIPSTICK Routine 04/30/2025 11:33 AM EDT BP check documented in this encounter Results * (ABNORMAL) POCT urinalysis dipstick manually resulted (04/30/2025 11:33 AM EDT) Color, UA Yellow Clarity, UA Clear Glucose, UA Positive Negative - 2000(110) ++++ mg/dL Bilirubin, UA Negative Negative - 4(70) +++ mg/dL Ketones, UA Negative Negative - 160(16) ++++ mg/dL Spec Grav, UA 1.010 1 - 1.03 Blood, UA Negative Negative - 50 Jason/mcL pH, UA 6.0 5 - 9 Protein, UA Negative Negative - 1999(20) ++++ mg/dL Urobilinogen, UA 1.0 0.2 - 12 mg/dL Leukocytes, UA Positive Negative - 500+++ Carlos/mcL Nitrite, UA Negative Negative - Positive Urine 04/30/2025 11:3 3 AM EDT Jose Michael DO POINT OF CARE TEST ENTER/EDIT OR DERABLES Final Result documented in this encounter Visit Diagnoses Diagnosis BP check Screening for hypertension -induced hypertension in third trimester ([facility]) Gestational diabetes mellitus (GDM) in third trimester, gestational diabetes method of control unspecified ([facility]) documented in this encounter Care Teams Marine Electrician Apprentice Relationship Specialty Start Date End Date Unallocated, Noms Provider, [address] [place] [address] PCP - General Family Medicine 08/03/24 documented as of this encounter
--- NOTE | 2025-05-04 | US_ITS ---
[address] [address] Patient Name: VIMAL PIZAON MRN: [id number] date: 2000 Sex: F Assigned Patient Location: [facility] Current Patient Location: [facility] Accession/Order Number: [id number] Exam Date: 05/04/2025 12:06 Report Date: 05/04/2025 12:08 At the request of: COLLIN LEACH Procedure: US OB growth Growth ultrasound. Reason for exam: Gestational diabetes. COMPARISON: Ultrasound 03/08/2025. TECHNIQUE: Transabdominal imaging of the gravid uterus was obtained. FINDINGS: Single live intrauterine measuring 26 weeks 3 days by anatomic measurements. Head circumference is less than 3rd percentile. Abdominal circumference is at the 20th percentile. DANYA is normal at 12.38 cm. Estimated weight is 1054 g which is at the 5th percentile. heart rate measures 150 bpm. US/US OB growth IMPRESSION: Single live intrauterine measuring 26 weeks 3 days by anatomic measurements. Low percentile head circumference and estimated weight. Impression dictated by: Bulmaro Arias Jr., D.O. 05/04/2025 12:08 PM Dictation Location: [facility] Electronically authenticated by: [id number] Y Date: 05/04/2025 12:08
--- OUTSIDE RECORDS SUMMARY | 2025-05-04 07:08 | XMS_ITS | CCD ---
Author Organization [facility] Care Team Providers Care Instrumentation Fitter Name Role Phone MICHAEL ., DR [...] Unavailable MISC, DR DOMINIQUE Primary Care Unavailable CHERRYVALE, DR COCO Danielle Consulting Unavailable MICHAEL ., DR MANN Consulting Unavailable MICHAEL ., DR MANN Admitting Unavailable MICHAEL ., DR MANN Attending Unavailable MISC, DR DOMINIQUE Primary Care Unavailable MICHAEL ., DR MANN Consulting Unavailable MICHAEL ., DR MANN Admitting Unavailable MICHAEL ., DR MANN Attending Unavailable MISC, DR DOMINIQUE Primary Care Unavailable CHERRYVALE, DR COCO Danielle Consulting Unavailable MICHAEL ., [...] Jennifer Huston Unavailable JEFFERY Huston Attending Provider [phone] Vaishali Zapata MD Primary Care Provider Unavai lable NO FAMILY, PHYSICIAN Primary Care Provider Unava ilable Jose Rodriguez DO Attending Provider [phone] Unallocated Arjun GREENBERG Provider Primary Care Provi krissy NO FAMILY, PHYSICIAN Primary Care Unavailable Michael, Jose Attending Unavailable Michael, Jose Admitting Unavailable MICHAEL, JOSE Attending Unavailable RACHEL, ROSSANA Attending Unavailable MICHAEL, JOSE Attending Unavailable RACHEL, ROSSANA Attending Unavailable RACHEL, ROSSANA Attending Unavailable RACHEL, ROSSANA Attending Unavailable MICHAEL, JOSE Attending Unavailable RACHEL, ROSSANA Attending Unavailable Medications Current Medications Medication Drug [...] / zinc oxide 20 mg oral tablet (20 sources) Vitamin B12, Vitamin D, Vitamin C take 1 tablet by mouth once daily Vit-DSS-Fe Fum-FA ( 19) 29-1 MG tablet Take 1 each by mouth 1 (one) time each day at the same time Active labetalol hydrochloride 300 mg oral tablet (13 sources) beta-Adrenergic Haseeb Start: 04-30-2025 End: 04-30-2026 take 1 tablet by mouth in the morning, then take 1 tablet by mouth in the evening, then take 1 tablet by mouth at bedtime labetalol (Normodyne) 300 MG tablet Indications: -induced hypertension in third trimester (HHS-HCC) Take 1 tablet (300 mg) by mouth in the morning and 1 tablet (300 mg) in the evening and 1 tablet (300 mg) before bedtime. 90 tablet 11 04/30/2025 04/30/2026 Active Start: 04-25-2025 End: 04-25-2026 take 1 tablet by mouth in the morning labetalol (Normodyne) 200 MG tablet Indications: induced hypertension, antepartum (HHS-HCC) Take 1 tablet (200 mg) by mouth in the morning and 1 tablet (200 mg) before bedtime. 60 tablet 11 04/25/2025 04/25/2026 Active Start: 04-11-2025 End: 04-11-2026 take 1 tablet by mouth in the morning labetalol (Normodyne) 100 MG tablet Indications: Elevated BP without diagnosis of hypertension Take 1 tablet (100 mg) by mouth in the morning and 1 tablet (100 mg) before bedtime. 60 tablet 11 04/11/2025 04/25/2025 Discontinued (Ineffective) loratadine 10 mg oral tablet (20 sources) take 1 tablet by mouth once [...] source) Active progesterone 100 mg vaginal insert (20 sources) Progesterone progesterone (Endometrin) 100 MG vaginal [...] Problem Classification Problem Date Documented Date Episodic/Chronic Diabetes or abnormal glucose tolerance complicating ; childbirth; or the puerperium ( sources) Gestational diabetes mellitus in childbirth, unspecified control; Translations: [Gestational diabetes mellitus in , unspecified control] Onset: 07-07-2022 Episodic Fracture of upper limb (1 source) Nondisplaced [...] ; childbirth and the puerperium (4 sources) -induced hypertension; Translations: [Gestational [-induced] hypertension [...] unspecified; Translations: [HYPERGLYCEMIA UNSPECIFIED] Onset: 06-03-2022 Episodic OB-related trauma to perineum and vulva [...] Range Facility Urinalysis macro (dipstick) panel (U)on 04-30-2025 Bilirubin, UA Negative Negative - 4(70) +++ mg/dL [facility] Blood, UA Negative Negative - 50 Jason/mcL [facility] Clarity, UA Clear [facility] re Color, UA Yellow [facility] Glucose, UA Positive Negative - 1999(110) ++++ mg/dL [facility] Interpretation and review of laboratory results Abnormal [facility] Ketones, UA Negative Negative - 160(16) ++++ mg/dL [facility] Leukocytes, UA Positive Negative - 500+++ Carlos/mcL [facility] Nitrite, UA Negative Negative - Positive [facility] pH, UA 6 5 - 9 [facility] e Protein, UA Negative Negative - 1999(20) ++++ mg/dL [facility] Spec Grav, UA 1.01 1 - 1.03 [facility] Urobilinogen, UA 1.0 0.2 - 12 mg/dL [facility] ALL CBC WITH AUTO DIFFon BASOPHILS ABSOLUTE AUTO 0 [facility] Basophils/100 WBC (Bld) 0.2 % 0.2 - 2.0 % [facility] Eosinophils/100 WBC (Bld) 2.2 % 0.9 - 7.0 % [facility] Erythrocyte distribution width (RBC) [Ratio] 12.9 % 11.0 - 15.0 % [facility] Hematocrit (Bld) [Volume fraction] 40 % 36.0 - 48.0 % [facility] Hemoglobin (Bld) [Mass/Vol] 13.6 g/dL 12.0 - 16.0 g/dL [facility] IMMATURE GRANULOCYTES ABS AUTO 0.04 High [facility] Immature granulocytes/100 WBC (Bld) 0.3 % 0.0 - 0.5 % [facility] Interpretation and review of laboratory results Abnormal [facility] LYMPHOCYTES ABSOLUTE AUTO 1.4 [facility] Lymphocytes/100 WBC (Bld) 10.8 % Low 20.5 - 60.0 % [facility] MCH (RBC) [Entitic mass] 31.7 pg 26.7 - 34.0 pg [facility] MCHC (RBC) [Mass/Vol] 34 g/dL 29.9 - 35.2 g/dL [facility] MCV (RBC) [Entitic vol] 93.2 fL 81.0 - 99.0 fL [facility] MONOCYTES ABSOLUTE AUTO 0.5 [facility] Monocytes/100 WBC (Bld) 4.3 % 1.7 - 12.0 % [facility] NEUTROPHILS ABSOLUTE AUTO 10.2 High [facility] Neutrophils/100 WBC (Bld) 82.2 % High 43.0 - 75.0 % [facility] Platelet mean volume (Bld) [Entitic vol] 10.6 fL 9.5 - 13.5 fL [facility] TBH EO # 0.3 [facility] TBH PLT 202 [facility] TB RBC 4.29 [facility] TBH WBC 12.5 High [facility] Urinalysis macro (dipstick) panel (U)on 04-25-2025 Bilirubin, UA Negative Negative - 4(70) +++ mg/dL [facility] Blood, UA Negative Negative - 50 Jason/mcL [facility] Clarity, UA Clear [facility] re Color, UA Yellow [facility] Glucose, UA Negative Negative - 1999(110) ++++ mg/dL [facility] Interpretation and review of laboratory results Normal [facility] Ketones, UA Negative Negative - 160(16) ++++ mg/dL [facility] Leukocytes, UA Negative Negative - 500+++ Carlos/mcL [facility] Nitrite, UA Negative Negative - Positive [facility] pH, UA 6.5 5 - 9 [facility] Protein, UA Negative Negative - 1999(20) ++++ mg/dL [facility] Spec Grav, UA 1.01 1 - 1.03 [facility] Urobilinogen, UA 0.2 0.2 - 12 mg/dL [facility] Urinalysis macro (dipstick) panel (U)on 04-11-2025 Bilirubin, UA Negative Negative - 4(70) +++ mg/dL [facility] Blood, UA Negative Negative - 50 Jason/mcL [facility] Clarity, UA Clear [facility] re Color, UA Yellow [facility] Glucose, UA Negative Negative - 1999(110) ++++ mg/dL [facility] Interpretation and review of laboratory results Normal [facility] Ketones, UA Negative Negative - 160(16) ++++ mg/dL [facility] Leukocytes, UA Negative Negative - 500+++ Carlos/mcL [facility] Nitrite, UA Negative Negative - Positive [facility] pH, UA 7 5 - 9 [facility] Protein, UA Negative Negative - 1999(20) ++++ mg/dL [facility] Spec Grav, UA 1.005 1 - 1.03 [facility] care Urobilinogen, UA 1.0 0.2 - 12 mg/dL [facility] US OB INCOMPLETE ANATOMYon 0 03-25-2025 [place] [address] Ultrasound Report Signed Patient: VIMAL FUNES MR#: [id number] : 2000 Acct:[id number] Age/Sex: 24 / F ADM Date: 03/23/25 Loc: US Attending Dr: Jose Rodriguez D.O. Ordering Physician: Jose Rodriguez D.O. Date of Service: 03/23/25 Procedure(s): US OB incomplete anatomy Accession Number(s): [id number] cc: JENNIFER SEE ; Jose Rodriguez D.O. [place] [address] Patient Name: VIMAL FUNES MRN: [id number] date: 2000 Sex: F Assigned Patient Location: Current Patient Location: Accession/Order Number: [id number] Exam Date: 03/25/2025 08:23 Report Date: 03/25/2025 [...] Brown M.D. 03/25/2025 8:25 AM Dictation Location: [place] [address] Electronically authenticated by: [id number] Y Date: 03/25/2025 08:25 Dictated By: Meghana Brown M.D. Signed By: 03/25/25826 DD/ 4 TD/TT: Hydrant Setter: [facility] Radiology, Radiologist, MD - 03/25/2025 [place] [address] Ultrasound Report Signed Patient: VIMAL FUNES MR#: [id number] : 2000 Acct:[id number] Age/Sex: 24 / F ADM Date: 03/23/25 Loc: US Attending Dr: Jose Rodriguez D.O. Ordering Physician: Jose Rodriguez D.O. Date of Service: 03/23/25 Procedure(s): US OB incomplete anatomy Accession Number(s): [id number] cc: JENNIFER SEE ; Jose Rodriguez D.O. [place] [address] Patient Name: VIMAL FUNES MRN: [facility]:[id number] date: 2000 Sex: F Assigned Patient Location: Current Patient Location: Accession/Order Number: [id number] Exam Date: 03/25/2025 08:23 Report Date: 03/25/2025 [...] Brown M.D. 03/25/2025 8:25 AM Dictation Location: [place] [address] Electronically authenticated by: [id number] Y Date: 03/25/2025 08:25 Dictated By: Meghana Brown M.D. Signed By: 03/25/25826 DD/ 4 TD/TT: Hydrant Setter: [facility] Radiology Study observation (narrative) [facility] US OB INCOMPLETE ANATOMYOrde red By: Radiologist Radiology on 03-25-2025 [facility] Work Phone: Urinalysis macro (dipstick) panel (U)on 03-14-2025 Bilirubin, UA Negative Negative - 4(70) +++ mg/dL [facility] Blood, UA Negative Negative - 50 Jason/mcL [facility] Clarity, UA Clear [facility] re Color, UA Yellow [facility] Stat e Glucose, UA Negative Negative - 2000(110) ++++ mg/dL [facility] Interpretation and review of laboratory results Normal [facility] Ketones, UA Negative Negative - 160(16) ++++ mg/dL [facility] Leukocytes, UA Negative Negative - 500+++ Carlos/mcL [facility] Nitrite, UA Negative Negative - Positive [facility] pH, UA 7 5 - 9 [facility] Stat e Protein, UA Negative Negative - 2000(20) ++++ mg/dL [facility] Spec Grav, UA 1.01 1 - 1.03 [facility] Urobilinogen, UA 0.2 0.2 - 12 mg/dL [facility] No Panel InformationOrdered By: Radiologist Radiology on 03-08-2025 [facility] Work Phone: No Panel Informationon 03-08 Radiology Study observation (narrative) [facility] US OB ANATOMYon 03-08-[address] [address] Ultrasound Report Signed Patient: VIMAL FUNES MR#: [id number] : 2000 Acct:[id number] Age/Sex: 24 / F ADM Date: 03/08/25 Loc: US Attending Dr: Jose Rodriguez D.O. Ordering Physician: Jose Rodriguez D.O. Date of Service: 03/08/25 Procedure(s): US OB anatomy Accession Number(s): [id number] cc: JENNIFER SEE ; Jose Rodriguez D.O. [address] [address] Patient Name: VIMAL FUNES MRN: [facility]:[id number] date: 2000 Sex: F Assigned Patient Location: US Current Patient Location: US Accession/Order Number: [id number] Exam Date: 03/08/2025 20:31 Report Date: 03/08/2025 [...] Knapp M.D. 03/08/2025 8:36 PM Dictation Location: [facility] Electronically authenticated by: [id number] Y Date: 03/08/2025 20:36 Dictated By: Shivam Knapp D.O. Signed By: 03/08/252037 DD/ 35 TD/TT: Hydrant Setter: [facility] Radiology, Radiologist, MD - 03/08/[address] [address] Ultrasound Report Signed Patient: VIMAL FUNES MR#: [id number] : 2000 Acct:[id number] Age/Sex: 24 / F ADM Date: 03/08/25 Loc: US Attending Dr: Jose Rodriguez D.O. Ordering Physician: Jose Rodriguez D.O. Date of Service: 03/08/25 Procedure(s): US OB anatomy Accession Number(s): [id number] cc: JENNIFER SEE ; Jose Rodriguez D.O. The [place] [address] Patient Name: VIMAL FUNES MRN: [id number]:[id number] date: 2000 Sex: F Assigned Patient Location: US Current Patient Location: US Accession/Order Number: [id number] Exam Date: 03/08/2025 20:31 Report Date: 03/08/2025 [...] Knapp M.D. 03/08/2025 8:36 PM Dictation Location: [place] [address] Electronically authenticated by: [id number] Y Date: 03/08/2025 20:36 Dictated By: Shivam Knapp D.O. Signed By: 03/08/252037 DD/ 35 TD/TT: Hydrant Setter: ARJUN Martinez US OB CERVICAL LENGTHon 02-24 [place] [address] Ultrasound Report Signed Patient: VIMAL FUNES MR#: [id number] : 2000 Acct:[id number] Age/Sex: 24 / F ADM Date: 03/08/25 Loc: US Attending Dr: Jose Rodriguez D.O. Ordering Physician: Jose Rodriguez D.O. Date of Service: 03/08/25 Procedure(s): US OB cervical length Accession Number(s): [id number] cc: JENNIFER SEE ; Jose Rodriguez D.O. [place] [id number] Patient Name: VIMAL FUNES MRN: [id number]:[id number] date: 2000 Sex: F Assigned Patient Location: US Current Patient Location: US Accession/Order Number: [id number] Exam Date: 03/08/2025 20:31 Report Date: 03/08/2025 [...] Knapp M.D. 03/08/2025 8:36 PM Dictation Location: [place] Electronically authenticated by: [id number] Y Date: 03/08/2025 20:36 Dictated By: Shivam Knapp D.O. Signed By: 03/08/252037 DD/ 35 TD/TT: Hydrant Setter: [facility] Radiology, Radiologist, MD - 03/08/2025 [place] [address] Ultrasound Report Signed Patient: VIMAL FUNES MR#: [id number] : 2000 Acct:[id number] Age/Sex: 24 / F ADM Date: 03/08/25 Loc: US Attending Dr: Jose Rodriguez D.O. Ordering Physician: Jose Rodriguez D.O. Date of Service: 03/08/25 Procedure(s): US OB cervical length Accession Number(s): [id number] cc: JENNIFER SEE ; Jose Rodriguez D.O. The [place] [id number] Patient Name: VIMAL FUNES MRN: [facility]:[id number] date: 2000 Sex: F Assigned Patient Location: US Current Patient Location: US Accession/Order Number: [id number] Exam Date: 03/08/2025 20:31 Report Date: 03/08/2025 [...] Knapp M.D. 03/08/2025 8:36 PM Dictation Location: [place] Electronically authenticated by: [id number] Y Date: 03/08/2025 20:36 Dictated By: Shivam Knapp D.O. Signed By: 03/08/252037 DD/ 35 TD/TT: Hydrant Setter: [facility] IGP,APTIMA HPV,AGE GDLNon AGE GDLN ACOG TESTING Note . [facility] Comment on above: TESTS RESULT FLAG UN ITS REF RANGE LAB Clinician Provided Cytology Information Source.............Endocervix No. of containers..01 ThinPrep Vial Age Algo ACOG Yris... FLAG LEGEND: L-Low Normal,H-High Normal,LL-Alert Low,HH-Alert High <-Panic Low,>-Panic High,A-Abnormal,AA-Critical Abnormal Performed at: 01 =G [facility] [place] [address] Jenise Byrne MD, IGP, RFX APTIMA HPV ASCU Note . [facility] Comment on above: TESTS RESULT FLAG U NITS REF RANGE LAB DIAGNOSIS: 02 NEGATIVE FOR INTRAEPITHELIAL LESION OR MALIGNANCY. Specimen adequacy: 02 Satisfactory for evaluation. Endocervical and/or squamous metaplastic cells (endocervical component) are present. Performed by: Hussein Alvarez, Manager File ([facility]) . 02 Note: Note 02 [...] <-Panic Low,>-Panic High,A-Abnormal,AA-Critical Abnormal Performed at: [address] [address] Jenise Byrne MD, Performed at: = - [facility] [id number] Cashier Wrapper: Jenise Byrne MD, Phone: [phone] Performed at: [facility] [address] [id number] Cashier Wrapper: Jenise Byrne MD, Phone: [phone] SPATULA-ALONE ENDOCERVIX [facility] RECURRENT VAGINITIS (HTRX)on 02-22-2025 ATOPOBIUM VAGINAE 0 [facility] ATOPOBIUM VAGINAE Not detected [facility] BVAB 2,3 (BACTERIAL VAGINOSIS ASSOCIATED BACTERIA 2, 3); MOBILUNCUS SPP 0 [facility] BVAB 2,3 (BACTERIAL VAGINOSIS ASSOCIATED BACTERIA 2, 3); MOBILUNCUS SPP Not detected [facility] Healthcare SIMEON ALBICANS, PARAPSILOSIS, TROPICALIS 0 [facility] SIMEON ALBICANS, PARAPSILOSIS, TROPICALIS Not detected [facility] SIMEON GLABRATA 0 [facility] SIMEON GLABRATA Not detected [facility] SIMEON KRUSEI 0 [facility] SIMEON KRUSEI Not detected [facility] CHLAMYDIA TRACHOMATIS 0 [facility] CHLAMYDIA TRACHOMATIS Not detected [facility] GARDNERELLA VAGINALIS 0 [facility] GARDNERELLA VAGINALIS Not detected [facility] MEGASPHAERA (TYPES 1, 2) 0 [facility] MEGASPHAERA (TYPES 1, 2) Not detected [facility] MYCOPLASMA GENITALIUM 0 [facility] MYCOPLASMA GENITALIUM Not detected [facility] NEISSERIA GONORRHOEAE 0 [facility] NEISSERIA GONORRHOEAE Not detected [facility] TRICHOMONAS VAGINALIS 0 [facility] TRICHOMONAS VAGINALIS Not detected [facility] Urinalysis macro (dipstick) panel (U)on 02-20-2025 Bilirubin, UA Negative Negative - 4(70) +++ mg/dL [facility] Blood, UA Negative Negative - 50 Jason/mcL [facility] Clarity, UA Clear [facility] Color, UA Yellow [facility] Glucose, UA Negative Negative - 1999(110) ++++ mg/dL [facility] Interpretation and review of laboratory results Abnormal [facility] Ketones, UA Negative Negative - 160(16) ++++ mg/dL [facility] Leukocytes, UA Negative Negative - 500+++ Carlos/mcL [facility] Nitrite, UA Negative Negative - Positive [facility] pH, UA 7 5 - 9 [facility] Protein, UA Negative Negative - 1999(20) ++++ mg/dL [facility] Spec Grav, UA 1.01 1 - 1.03 [facility] Urobilinogen, UA 0.2 0.2 - 12 mg/dL [facility] Urinalysis macro (dipstick) panel (U)on 01-14-2025 Bilirubin, UA Negative Negative - 4(70) +++ mg/dL [facility] Blood, UA Positive Negative - 50 Jason/mcL [facility] Comment on above: trace-intact Clarity, UA Clear [facility] re Color, UA Yellow [facility] Glucose, UA Negative Negative - 1999(110) ++++ mg/dL [facility] Interpretation and review of laboratory results Abnormal [facility] Ketones, UA Negative Negative - 160(16) ++++ mg/dL [facility] Leukocytes, UA Negative Negative - 500+++ Carlos/mcL [facility] Nitrite, UA Negative Negative - Positive [facility] pH, UA 6 5 - 9 [facility] Protein, UA Negative Negative - 1999(20) ++++ mg/dL [facility] Spec Grav, UA 1.005 1 - 1.03 [facility] Urobilinogen, UA 0.2 0.2 - 12 mg/dL [facility] ALL CBC WITH AUTO DIFFon BASOPHILS ABSOLUTE AUTO 0 [facility] Basophils/100 WBC (Bld) 0.4 % 0.2 - 2.0 % [facility] Eosinophils/100 WBC (Bld) 1.7 % 0.9 - 7.0 % [facility] Erythrocyte distribution width (RBC) [Ratio] 12.3 % 11.0 - 15.0 % [facility] Hematocrit (Bld) [Volume fraction] 42.5 % 36.0 - 48.0 % [facility] Hemoglobin (Bld) [Mass/Vol] 14.7 g/dL 12.0 - 16.0 g/dL [facility] IMMATURE GRANULOCYTES ABS AUTO 0.02 [facility] Immature granulocytes/100 WBC (Bld) 0.2 % 0.0 - 0.5 % [facility] Interpretation and review of laboratory results Abnormal [facility] LYMPHOCYTES ABSOLUTE AUTO 1.4 [facility] Lymphocytes/100 WBC (Bld) 15.4 % Low 20.5 - 60.0 % [facility] MCH (RBC) [Entitic mass] 31.6 pg 26.7 - 34.0 pg [facility] MCHC (RBC) [Mass/Vol] 34.6 g/dL 29.9 - 35.2 g/dL [facility] MCV (RBC) [Entitic vol] 91.4 fL 81.0 - 99.0 fL [facility] MONOCYTES ABSOLUTE AUTO 0.5 [facility] Monocytes/100 WBC (Bld) 5.4 % 1.7 - 12.0 % [facility] NEUTROPHILS ABSOLUTE AUTO 7 High [facility] Neutrophils/100 WBC (Bld) 76.9 % High 43.0 - 75.0 % [facility] Platelet mean volume (Bld) [Entitic vol] 10.1 fL 9.5 - 13.5 fL [facility] TBH EO # 0.2 [facility] PLT 216 [facility] TB RBC 4.65 [facility] TB WBC 9.2 [facility] US OB TRANSVAGINALon 025 [...] the right ovary was not visualized. Electronically Signed:Roball y signed by RADHA POE II, MD, PHD at 14-Dec-2024 08:35:59 PM [facility] Normal Not Available Comment on above: Order Comment: US OB TRANSVAGINAL No LMP recorded. [facility] PREG QUANT HCGon 025 HCG QUANTITATIVE 23478 mIU/mL [facility] Comment on above: 5-50 0.2-1 WEEK 50-500 1-2 WEEKS 100-5,000 2-3 WEEKS 500-10,000 3-4 WEEKS 1,000-50,000 4-5 WEEKS 10,000-100,000 5-6 WEEKS 15,000-200,000 6-8 WEEKS 10,000-100,000 2-3 MONTHS [facility] TBH PREG QUANT HCGon 025 HCG QUANTITATIVE 6254 mIU/mL [facility] Comment on above: 5-50 0.2-1 WEEK 50-500 1-2 WEEKS 100-5,000 2-3 WEEKS 500-10,000 3-4 WEEKS 1,000-50,000 4-5 WEEKS 10,000-100,000 5-6 WEEKS 15,000-200,000 6-8 WEEKS 10,000-100,000 2-3 MONTHS [facility] TBH PREG QUANT HCGon 024 HCG QUANTITATIVE 6 mIU/mL [facility] Comment on above: 5-50 0.2-1 WEEK 50-500 1-2 WEEKS 100-5,000 2-3 WEEKS 500-10,000 3-4 WEEKS 1,000-50,000 4-5 WEEKS 10,000-100,000 5-6 WEEKS 15,000-200,000 6-8 WEEKS 10,000-100,000 2-3 [facility] ALL CBC WITH AUTO DIFFon BASOPHILS ABSOLUTE AUTO 0 [facility] Basophils/100 WBC (Bld) 0.5 % 0.2 - 2.0 % [facility] Eosinophils/100 WBC (Bld) 6.2 % 0.9 - 7.0 % [facility] Erythrocyte distribution width (RBC) [Ratio] 11.9 % 11.0 - 15.0 % [facility] Hematocrit (Bld) [Volume fraction] 43.8 % 36.0 - 48.0 % [facility] Hemoglobin (Bld) [Mass/Vol] 14.8 g/dL 12.0 - 16.0 g/dL [facility] IMMATURE GRANULOCYTES ABS AUTO 0.02 [facility] Immature granulocytes/100 WBC (Bld) 0.2 % 0.0 - 0.5 % [facility] LYMPHOCYTES ABSOLUTE AUTO 2 [facility] Lymphocytes/100 WBC (Bld) 22.1 % 20.5 - 60.0 % [facility] MCH (RBC) [Entitic mass] 31.7 pg 26.7 - 34.0 pg [facility] MCHC (RBC) [Mass/Vol] 33.8 g/dL 29.9 - 35.2 g/dL [facility] MCV (RBC) [Entitic vol] 93.8 fL 81.0 - 99.0 fL [facility] MONOCYTES ABSOLUTE AUTO 0.5 [facility] Monocytes/100 WBC (Bld) 5.3 % 1.7 - 12.0 % [facility] NEUTROPHILS ABSOLUTE AUTO 5.8 [facility] Neutrophils/100 WBC (Bld) 65.7 % 43.0 - 75.0 % [facility] Platelet mean volume (Bld) [Entitic vol] 10 fL 9.5 - 13.5 fL [facility] TBH EO # 0.6 [facility] TB PLT 236 [facility] TB RBC 4.67 [facility] TBH WBC 8.9 [facility] [place] 08-10-2024 L Specimen: [id number] Received: 08/10/24 Status: CAROL Elena Num: [id number] Spec Type: Surgical Subm Dr: Jose Rodriguez Tissues: A Products of Conception - Spontaneous or Missed (CONTENTS OF CONCEPT Procedures: HE/2, Gross/Micro L4 Age/ Patient Sex Location Account Attending Physician Vimal Funes / LABELL [id number] Jose Rodriguez SPEC NUM: [id number] RECD: 08/10/24 STATUS: CAROL ELENA NUM: [id number] CAROLIN: 08/10/24-[address] [facility] [address]: Jose Rodriguez ENTERED: 08/10/[address]: Vignesh Morataya SPEC TYPE: Surgical DEPT: MONICA ALTMAN ENTERED BY: [id number] RECV BY: [id number] ORDERED: HE/2, Gross/Micro L4 ORDERED: HE/2, Gross/Micro [...] villi and decidua. No tissue is identified. [employer] Counter Associate sections of the chorionic villi are submitted in cassette A1 with sales representative sales manager sections of the decidua is submitted in cassette A2. (2, ss, [id number] A) CPT Codes [id number] Specimen: [id number] Received: 08/10/24 Status: CAROL Hoang Num: [id number] Spec Type: Surgical Subm Dr: Jose Rodriguez Tissues: A Products of Conception - Spontaneous or Missed (CONTENTS OF CONCEPT Procedures: HE/2, Gross/Micro L4 Patient: Vimal Funes [id number] (Continued) Signed (signature on file) Josh Aragon MD 08/13/24 1647 Normal [facility] TB PREG QUANT HCGon 024 HCG QUANTITATIVE 240 mIU/mL [facility] Comment on above: 5-50 0.2-1 WEEK 50-500 1-2 WEEKS 100-5,000 2-3 WEEKS 500-10,000 3-4 WEEKS 1,000-50,000 4-5 WEEKS 10,000-100,000 5-6 WEEKS 15,000-200,000 6-8 WEEKS 10,000-100,000 2-3 MONTHS [facility] Healthcar e ALL CBC WITH AUTO DIFFon BASOPHILS ABSOLUTE AUTO 0.1 [facility] Basophils/100 WBC (Bld) 0.5 % 0.2 - 2.0 % [facility] Eosinophils/100 WBC (Bld) 2.8 % 0.9 - 7.0 % [facility] Erythrocyte distribution width (RBC) [Ratio] 11.9 % 11.0 - 15.0 % [facility] Hematocrit (Bld) [Volume fraction] 44.7 % 36.0 - 48.0 % [facility] Hemoglobin (Bld) [Mass/Vol] 15.3 g/dL 12.0 - 16.0 g/dL [facility] IMMATURE GRANULOCYTES ABS AUTO 0.03 [facility] Immature granulocytes/100 WBC (Bld) 0.3 % 0.0 - 0.5 % [facility] Interpretation and review of laboratory results Abnormal [facility] LYMPHOCYTES ABSOLUTE AUTO 1.6 [facility] Lymphocytes/100 WBC (Bld) 14.9 % Low 20.5 - 60.0 % [facility] MCH (RBC) [Entitic mass] 31.7 pg 26.7 - 34.0 pg [facility] MCHC (RBC) [Mass/Vol] 34.2 g/dL 29.9 - 35.2 g/dL [facility] MCV (RBC) [Entitic vol] 92.7 fL 81.0 - 99.0 fL [facility] MONOCYTES ABSOLUTE AUTO 0.4 [facility] Monocytes/100 WBC (Bld) 3.7 % 1.7 - 12.0 % [facility] NEUTROPHILS ABSOLUTE AUTO 8.2 High [facility] Neutrophils/100 WBC (Bld) 77.8 % High 43.0 - 75.0 % [facility] Platelet mean volume (Bld) [Entitic vol] 10 fL 9.5 - 13.5 fL [facility] TBH EO # 0.3 [facility] PLT 263 [facility] RBC 4.82 [facility] TBH WBC 10.6 [facility] No Panel Informationon 07-21 [facility] TB DRUG SCREEN RAPID (URINE )on 07-21-2024 AMPHETAMINE SCREEN URINE Negative NEGATIVE [facility] BARBITURATES SCREEN URINE Negative NEGATIVE [facility] BENZODIAZEPINES SCREEN URINE Negative NEGATIVE [facility] BUPRENORPHINE SCREEN URINE Negative NEGATIVE [facility] Comment on above: DRUG CLASS TEST [...] 300 ng/mL CANNABINOID SCREEN URINE Negative NEGATIVE [facility] COCAINE SCREEN URINE Negative NEGATIVE [facility] METHADONE SCREEN URINE Negative NEGATIVE [facility] METHAMPHETAMINES SCREEN URINE Negative NEGATIVE [facility] OPIATE SCREEN URINE Negative NEGATIVE [facility] OXYCODONE SCREEN URINE Negative NEGATIVE NO [facility] PHENCYCLIDINE SCREEN URINE Negative NEGATIVE [facility] TRICYCLIC ANTIDEPRESSANT URINE Negative NEGATIVE [facility] REEFLEX IF POSITIVE [facility] HCG ( test) Ql (U)o n 06-29-2024 Interpretation and review of laboratory results Abnormal [facility] Preg Test, Ur Positive [facility] Urinalysis macro (dipstick) panel (U)on 06-29-2024 Bilirubin, UA Negative Negative - 4(70) +++ mg/dL [facility] Blood, UA Negative Negative - 50 Jason/mcL [facility] Clarity, UA Clear [facility] re Color, UA Yellow [facility] Glucose, UA Negative Negative - 1999(110) ++++ mg/dL [facility] Interpretation and review of laboratory results Normal [facility] Ketones, UA Negative Negative - 160(16) ++++ mg/dL [facility] Leukocytes, UA Negative Negative - 500+++ Carlos/mcL [facility] Nitrite, UA Negative Negative - Positive [facility] pH, UA 7.0 5 - 9 [facility] e Protein, UA Negative Negative - 1999(20) ++++ mg/dL [facility] Spec Grav, UA 1.015 1 - 1.03 [facility] Urobilinogen, UA 0.2 0.2 - 12 mg/dL [facility] hand RT min 3V*on 023 XR hand RT min 3V* [facility] [employer] Other XR hand RT min 3V* [facility] [employer] Other XR hand RT min 3V* [address] [place] [address] [employer] Other XR hand RT min 3V* [place] [address] [employer] [facility] [employer] Other XR hand RT min 3V* XRay Report [employer] Other XR hand RT min 3V* Signed [employer] Other XR hand RT min 3V* Patient: Vimal Funes MR#: [id number] [facility] [employer] Other XR hand RT min 3V* 18 [employer] Other XR hand RT min 3V* : 2000 Acct:[id number] [employer] Other XR hand RT min 3V* Age/Sex: 22 / F ADM Date: 12/26/22 [employer] Other XR hand RT min 3V* Loc: XDUCLY Room: Type: [facility] [employer] Other XR hand RT min 3V* Attending Dr: Jennifer GIL [employer] Other XR hand RT min 3V* Copies to: JEFFERY Rodriguez [employer] Other XR hand RT min 3V* Ordering Provider: JEFFERY Rodriguez [employer] Other XR hand RT min 3V* Date of Service: 12/26/22 [employer] Other XR hand RT min 3V* XR/XR hand RT min 3V*: RIGHT HAND INJURY [employer] Other XR hand RT min 3V* RIGHT HAND - 4 views [employer] Other XR hand RT min 3V* REASON FOR EXAM: Patient had right thumb hyperextended yesterday when trying to open the door. Now [employer] Other XR hand RT min 3V* with pain. [employer] Other XR hand RT min 3V* COMPARISON: None [employer] Other XR hand RT min 3V* FINDINGS: [employer] Other XR hand RT min 3V* No focal soft tissue abnormality. There appears to be avulsion fracture involving the base of the [employer] Other XR hand RT min 3V* distal phalanx of the thumb. Joint spaces appear maintained. No bony erosions. [employer] Other XR hand RT min 3V* XR/XR hand RT min 3V* [employer] Other XR hand RT min 3V* IMPRESSION: [employer] Other XR hand RT min 3V* AVULSION FRACTURE INVOLVING THE BASE OF THE DISTAL PHALANX OF THE THUMB. [employer] Other XR hand RT min 3V* Impression dictated by: Bulmaro Arias Jr., D.O.12/26/2022 1:44 PM [employer] Other XR hand RT min 3V* Dictation Location: RADIO-PC-15 [employer] Other XR hand RT min 3V* Transcribed By: PWS 12/26/22 [facility] [employer] Other XR hand RT min 3V* Dictated By: Bulmaro Arias Jr DO 12/26/22 [facility] [employer] Other XR hand RT min 3V* Signed By: [employer] Other XR hand RT min 3V* 12/26/[address] [place] [address] [employer] Other PAP ACOG PANEL 2: 22 to 30on 11-09-2022 . . [facility] Comment on above: Performed By: #### [id number] ####[facility] [address] [address]Dr. Donis Mancini Age Gdln ACOG Testing 22- [facility] Comment on above: Performed By: #### [id number] ####[facility] [address] [id number]. Donis Mancini DIAGNOSIS: Comment [facility] Comment on above: Result Comment: NEGA TIVE FOR INTRAEPITHELIAL LESION OR MALIGNANCY. Performed By: #### 4 [id number] ####[facility] [address] [place] [id number]. Donis Mancini Methodology: Comment [facility] Comment on above: Result Comment: This liquid based ThinPrep(R) pap test was screened with the use of an image guided system. Performed By: #### [id number] ####[facility] [address] [place], [place] [address]Dr. Donis Mancini Note: Comment Normal [facility] Comment on above: Result Comment: The Pap smear is a screening test designed to aid in the detection of premalignant and malignant conditions of the uterine cervix. It is not a diagnostic procedure and should not be used as the sole means of detecting cervical cancer. Both false-positive and false-negative reports do occur. . Performed By: #### [id number] ####[facility] [address] [place], [place] [address]Dr. Donis Mancini Performed by: Comment Normal [facility] Comment on above: Result Comment: Zuleima Lin, Consumer Lending Manager (ASCP) Performed By: #### 4 [id number] ####[facility] [address] [place], [place] [address]Dr. Donis Mancini Reflex Criteria: Comment Normal [facility] Comment on above: Result Comment: The HPV DNA reflex criteria were not met with this specimen result therefore, no HPV testing was performed. . Performed By: #### [id number] ####[facility] [address] [place], [place] [address]Dr. Donis Mancini Specimen adequacy: Comment Normal [facility] Comment on above: Result Comment: Sati sfactory for evaluation. Endocervical and/or squamous metaplastic cells (endocervical component) are present. Performed By: #### 4 [id number] ####[facility] [address] [place], [place] [address]Dr. Donis Mancini Cytology Cervical or vaginal smear or scraping studyOrdered By: Jael Nix on 11-02-2022 [facility] CBC AUTO DIFFon 08-11-2022 BASO # 0.0 103/ul Normal 0.0-0.[address] [facility] Comment on above: Performed By: #### C T/NGNA #### [facility] [address] [address] [address] Donis Mancini Basophils/100 WBC (Bld) 0.2 % Normal 0.2-2.[address] [facility] Comment on above: Performed By: #### C T/NGNA #### [facility] [address] [place] [address] Dr. Donis Mancini EO # 0.1 103/ul Normal 0.0-0.[address] [facility] Comment on above: Performed By: #### C T/NGNA #### [facility] [address] [place] [address] Dr. Donis Mancini Eosinophils/100 WBC (Bld) 0.5 % Critically low 0.9-7.[address] [facility] Comment on above: Performed By: #### C T/NGNA #### [facility] [address] [place] [address] Dr. Donis Mancini Erythrocyte distribution width (RBC) [Ratio] 12.5 % Normal 11.0-15.[address] [facility] Comment on above: Performed By: #### C T/NGNA #### [facility] [address] [place] [address] Dr. Donis Mancini Hematocrit (Bld) [Volume fraction] 35.9 % Critically low 36.0-48.[address] [facility] Comment on above: Performed By: #### C T/NGNA #### [facility] [address] [place] [address] Dr. Donis Mancini Hemoglobin (Bld) [Mass/Vol] 12.4 g/dL Normal 12.0-16.[address] [facility] Comment on above: Result Comment: michelet ent delivered Performed By: #### C T/NGNA #### [facility] [address] [place] [address] Dr. Donis Mancini IG # 0.10 10e3/ul Critically high 0.00-0.03 [facility] Comment on above: Performed By: #### C T/NGNA #### [facility] [address] [place] [address] Dr. Donis Mancini IG % 0.5 % Normal 0.0-0.[address] [facility] Comment on above: Performed By: #### C T/NGNA #### [facility] [address] [place] [address] Dr. Donis Mancini LYMPH # 1.5 103/ul Normal 1.2-3.[address] [facility] Comment on above: Performed By: #### C T/NGNA #### [facility] [address] [place] [address] Dr. Donis Mancini Lymphocytes/100 WBC (Bld) 7.6 % Critically low 20.5-60.[address] [facility] Comment on above: Performed By: #### C T/NGNA #### [facility] [address] [place] [address] Dr. Donis Mancini MANUAL DIFF REQ NO Normal [facility] Comment on above: Performed By: #### C T/NGNA #### [facility] [address] [place] [address] Dr. Donis Mancini MCH (RBC) [Entitic mass] 32.2 pg Normal 26.7-34.[address] [facility] Comment on above: Performed By: #### C T/NGNA #### [facility] [address] [place] [address] Dr. Donis Mancini MCHC (RBC) [Mass/Vol] 34.5 g/dL Normal 29.9-35.[address] [facility] Comment on above: Performed By: #### C T/NGNA #### [facility] [address] [place] [address] Dr. Donis Mancini MCV (RBC) [Entitic vol] 93.2 fL Normal 81.0-99.[address] [facility] Comment on above: Performed By: #### C T/NGNA #### [facility] [address] [place] [address] Dr. Donis Mancini MONO # 1.3 103/ul Critically high 0.3-0.8 [facility] Comment on above: Performed By: #### C T/NGNA #### [facility] [address] [place] [address] Dr. Donis Mancini Monocytes/100 WBC (Bld) 6.8 % Normal 1.7-12.[address] [facility] Comment on above: Performed By: #### C T/NGNA #### [facility] [address] [address] [address] Donis Mancini NEUT # 16.2 103/ul Critically high 1.4-6.5 [facility] Comment on above: Performed By: #### C T/NGNA #### [facility] [address] [place] [address] Dr. Donis Mancini Neutrophils/100 WBC (Bld) 84.4 % Critically high 43.0-75.[address] [facility] Comment on above: Performed By: #### C T/NGNA #### [facility] [address] [place] [address] Dr. Donis Mancini Platelet mean volume (Bld) [Entitic vol] 11.8 fL Normal 9.5-13.[address] [facility] Comment on above: Performed By: #### C T/NGNA #### [facility] [address] [place] [address] Dr. Donis Mancini PLT 156 103/ul Normal 150-[address] [facility] Comment on above: Performed By: #### C T/NGNA #### [facility] [address] [place] [address] Dr. Donis Mancini RBC 3.85 106/ul Critically low 4.20-5.40 [facility] Comment on above: Performed By: #### C T/NGNA #### [facility] [address] [place] [address] Dr. Donis Mancini WBC 19.2 103/ul Critically high 4.0-11.0 [facility] Comment on above: Performed By: #### C T/NGNA #### [facility] [address] [place] [address] Dr. Donis Mancini [facility]on 07-27 SARS-CoV-2 (COVID-19) RNA INESSA+probe Ql (Unsp spec) Not detected Normal NOT DETECTED [facility] Comment on above: Result [...] for this test is supported by the [place] of Health and Human Service's declaration that [...] be used). Performed By: #### C VDTBH ####[facility] [address] [place], [place] [address]Dr. Donis Mancini DRUG SCREEN RAPID (URINE)on 08-10-2022 AMP Negative Normal NEGATIVE [facility] Comment on above: Performed By: #### D RUGRPD ####[facility] [address] [place], [place] [address]Dr. Donis Mancini BAR Negative Normal NEGATIVE [facility] Comment on above: Performed By: #### D RUGRPD ####[facility] [address] [place], [place] [address]Dr. Donis Mancini BUP Negative Normal NEGATIVE [facility] Comment on above: Performed By: #### D RUGRPD ####[facility] [address] [place], [place] [address]Dr. Donis Mancini BZO Negative Normal NEGATIVE [facility] Comment on above: Performed By: #### D RUGRPD ####[facility] [address] [place] [address]Dr. Donis Mancini ALEXA Negative Normal NEGATIVE [facility] Comment on above: Performed By: #### D RUGRPD ####[facility] [address] [place], [place] [address]Dr. Donis Mancini CUT-OFFS SEE BELOW Normal [facility] Comment on above: Result [...] 300 ng/mL Performed By: #### D RUGRPD ####[facility] [address] [place], [place] [address]Dr. javi [facility] DRUG CUT HEADER DRUG CLASS TEST SYSTEM CUT-OFF CONCENTRATIONS ARE FOLLOWS: Normal [facility] Comment on above: Performed By: #### D RUGRPD ####[facility] [address] [place], [place] [address]Dr. Donis Mancini mAMP Negative Normal NEGATIVE [facility] Comment on above: Performed By: #### D RUGRPD ####[facility] [address] [place], [place] [address]Dr. Donis Mancini MTD Negative Normal NEGATIVE [facility] Comment on above: Performed By: #### D RUGRPD ####[facility] [address] [place], [place] [address]Dr. Laceyjavi [facility] OPI Negative Normal NEGATIVE [facility] Comment on above: Performed By: #### D RUGRPD ####[facility] [address] [place], [place] [address]Dr. Donis Mancini OXY Negative Normal NEGATIVE [facility] Comment on above: Performed By: #### D RUGRPD ####[facility] [address] [place], [place] [address]Dr. Donis [facility] PCP Negative Normal NEGATIVE [facility] Comment on above: Performed By: #### D RUGRPD ####[facility] [address] [place], [place] [address]Dr. Laceyjavi [facility] PPX Negative Normal NEGATIVE [facility] Comment on above: Performed By: #### D RUGRPD ####[facility] [address] [place] [id number]. Donis Mancini TCA Negative Normal NEGATIVE [facility] Comment on above: Performed By: #### D RUGRPD ####[facility] [address] [place], [place] [address]Ms. Donis Mancini THC Negative Normal NEGATIVE [facility] Comment on above: Performed By: #### D RUGRPD ####[facility] [address] [place] [id number]. Donis Mancini TYPE AND SCREENon 08-10-2022 TYPE AND SCREEN Negative Normal [facility] Comment on above: Performed By: #### T NS ####[facility] [address] [place] [address]Dr. Donis Mancini US PREG BIOPHY W NON [...] ESTEFANY BENNETT Date: 2022-08-10 07:18 Normal [facility] US PREG GROWTHon 08-10-2022 [...] ESTEFANY BENNETT Date: 2022-08-10 07:16 Normal [facility] CBC AUTO DIFFon 08-09-2022 BASO # 0.0 103/ul Normal 0.0-0.1 [facility] Comment on above: Performed By: #### C BC ####[facility] [address] [place], [place] [address]Dr. Donis Mancini Basophils/100 WBC (Bld) 0.2 % Normal 0.2-2.[address] [facility] Comment on above: Performed By: #### C BC ####[facility] [address] [place], [place] [address]Dr. Donis Mancini EO # 0.4 103/ul Normal 0.0-0.[address] [facility] Comment on above: Performed By: #### C BC ####[facility] [address] [place], [place] [address]Dr. Donis Mancini Eosinophils/100 WBC (Bld) 2.8 % Normal 0.9-7.[address] [facility] Comment on above: Performed By: #### C BC ####[facility] [address] [place], [place] [address]Dr. Donis Mancini Erythrocyte distribution width (RBC) [Ratio] 12.2 % Normal 11.0-15.0 [facility] Comment on above: Performed By: #### C BC ####[facility] [address] [place], [place] [address]Dr. Donis Mancini Hematocrit (Bld) [Volume fraction] 41.4 % Normal 36.0-48.0 [facility] Comment on above: Performed By: #### C BC ####[facility] [address] [place], [place] [address]Dr. Donis Mancini Hemoglobin (Bld) [Mass/Vol] 14.4 g/dL Normal 12.0-16.[address] [facility] Comment on above: Performed By: #### C BC ####[facility] [address] [place] [address]DrGene Mancini IG # 0.06 10e3/ul Critically high 0.00-0.03 [facility] Comment on above: Performed By: #### C BC ####[facility] [address] [place] [address]DrGene Mancini IG % 0.5 % Normal 0.0-0.[address] [facility] Comment on above: Performed By: #### C BC ####[facility] [address] [place] [address]DrGene Mancini LYMPH # 1.5 103/ul Normal 1.2-3.[address] [facility] Comment on above: Performed By: #### C BC ####[facility] [address] [place] [address]DrGene Mancini Lymphocytes/100 WBC (Bld) 11.7 % Critically low 20.5-60.[address] [facility] Comment on above: Performed By: #### C BC ####[facility] [address] [place] [address]DrGene Mancini MANUAL DIFF REQ NO Normal [facility] Comment on above: Performed By: #### C BC ####[facility] [address] [place] [address]DrGene Mancini MCH (RBC) [Entitic mass] 31.9 pg Normal 26.7-34.[address] [facility] Comment on above: Performed By: #### C BC ####[facility] [address] [place] [id number] Mancini MCHC (RBC) [Mass/Vol] 34.8 g/dL Normal 29.9-35.2 [facility] Comment on above: Performed By: #### C BC ####[facility] [address] [place] [id number] Mancini MCV (RBC) [Entitic vol] 91.8 fL Normal 81.0-99.0 [facility] Comment on above: Performed By: #### C BC ####[facility] [address] [place] [id number]. Donis Mancini MONO # 1.0 103/ul Critically high 0.3-0.8 [facility] Comment on above: Performed By: #### C BC ####[facility] [address] [place] [id number]. Donis Mancini Monocytes/100 WBC (Bld) 7.5 % Normal 1.7-12.0 [facility] Comment on above: Performed By: #### C BC ####[facility] [address] [place] [id number]. Donis Mancini NEUT # 10.0 103/ul Critically high 1.4-6.5 [facility] Comment on above: Performed By: #### C BC ####[facility] [address] [place] [address]Dr. Donis Mancini Neutrophils/100 WBC (Bld) 77.3 % Critically high 43.0-75.0 [facility] Comment on above: Performed By: #### C BC ####[facility] [address] [place] [id number]. Donis Live Platelet mean volume (Bld) [Entitic vol] 11.6 fL Normal 9.5-13.5 [facility] Comment on above: Performed By: #### C BC ####[facility] [address] [place] [id number]. Donis Live PLT 184 103/ul Normal 150-450 [facility] Comment on above: Performed By: #### C BC ####[facility] [address] [place] [id number]. Donis Mancini RBC 4.51 106/ul Normal 4.20-5.40 [facility] Comment on above: Performed By: #### C [place] ####[facility] [id number] [place] [id number]. Donis Mancini WBC 12.9 103/ul Critically high 4.0-11.0 [facility] Comment on above: Performed By: #### C BC ####[facility] [address] [place], [place] [address]UlDr. Donis Mancini LDHon 08-09-2022 LDH 167 U/L Normal 81-[address] [facility] Comment on above: Performed By: #### C T/NGNA #### [facility] [address] [address] [address] Donis Mancini PROF 14(COMP METB)on 022 Albumin [Mass/Vol] 2.7 g/dL Critically low 3.4-5.0 [facility] Comment on above: Performed By: #### C T/NGNA #### [facility] [address] [address] [address] Donis Mancini Albumin/Globulin [Mass ratio] 0.6 {ratio} Normal [facility] Comment on above: Performed By: #### C T/NGNA #### [facility] [address] [address] [address] Donis Mancini ALP [Catalytic activity/Vol] 176 U/L Critically high 46-[address] [facility] Comment on above: Performed By: #### C T/NGNA #### [facility] [address] [address] [address] Donis Mancini ALT [Catalytic activity/Vol] 20 U/L Normal 14-[address] [facility] Comment on above: Performed By: #### C T/NGNA #### [facility] [address] [address] [address] Donis Mancini Anion gap [Moles/Vol] 12.9 mmol/L Normal [facility] Comment on above: Performed By: #### C T/NGNA #### [facility] [address] [address] [address] Donis Mancini AST [Catalytic activity/Vol] 20 U/L Normal 15-[address] [facility] Comment on above: Performed By: #### C T/NGNA #### [facility] [address] [address] [address] Donis Mancini Bilirubin [Mass/Vol] 0.1 mg/dL Critically low 0.2-1.[address] [facility] Comment on above: Performed By: #### C T/NGNA #### [facility] [address] [place] [address] Dr. Donis Mancini Calcium [Mass/Vol] 9.1 mg/dL Normal 8.5-10.1 [facility] Comment on above: Performed By: #### C T/NGNA #### [facility] [address] [address] [address] Donis Mancini Chloride [Moles/Vol] 104 mmol/L Normal 98-107 [facility] Comment on above: Performed By: #### C T/NGNA #### [facility] [address] [place] [address] Dr. Donis Mancini CO2 [Moles/Vol] 22.9 mmol/L Normal 21.0-32.0 [facility] Comment on above: Performed By: #### C T/NGNA #### [facility] [address] [place] [address] Dr. Donis Mancini Creatinine [Mass/Vol] 0.43 mg/dL Critically low 0.55-1.[address] [facility] Comment on above: Performed By: #### C T/NGNA #### [facility] [address] [place] [address] Dr. Donis Mancini EGFR-AF KOSOVAN >60 Normal >=60 [facility] Comment on above: Performed By: #### C T/NGNA #### [facility] [address] [place] [address] Dr. Donis Mancini EGFR-NON AF KOSOVAN >60 Normal >=[address] [facility] Comment on above: Performed By: #### C T/NGNA #### [facility] [address] [place] [address] Dr. Donis Mancini Globulin (S) [Mass/Vol] 4.2 g/dL Normal [facility] Comment on above: Performed By: #### C T/NGNA #### [facility] [address] [place] [address] Dr. Donis Mancini Glucose [Mass/Vol] 95 mg/dL Normal 74-106 [facility] Comment on above: Performed By: #### C T/NGNA #### [facility] [address] [place] [address] Dr. Donis Mancini Potassium [Moles/Vol] 3.8 mmol/L Normal 3.5-5.[address] [facility] Comment on above: Performed By: #### C T/NGNA #### [facility] [address] [place] [address] Dr. Donis Mancini Protein [Mass/Vol] 6.9 g/dL Normal 6.4-8.2 [facility] Comment on above: Performed By: #### C T/NGNA #### [facility] [address] [place] [address] Dr. Donis Mancini Sodium [Moles/Vol] 136 mmol/L Normal 136-145 [facility] Comment on above: Performed By: #### C T/NGNA #### [facility] [address] [place] [address] Dr. Donis Mancini Urea nitrogen [Mass/Vol] 10.0 mg/dL Normal 7.0-18.[address] [facility] Comment on above: Performed By: #### C T/NGNA #### [facility] [address] [place] [address] Dr. Donis Mancini Urea nitrogen/Creatinine [Mass ratio] 23.3 mg/mg Normal [facility] Comment on above: Performed By: #### C T/NGNA #### [facility] [address] [place] [address] Dr. Donis Mancini URIC ACID SERUMon 08-09-2022 Urate [Mass/Vol] 3.6 mg/dL Normal 2.6-6.0 [facility] Comment on above: Performed By: #### C T/NGNA #### [facility] [address] [place] [address] Dr. Donis Mancini CBC AUTO DIFFon 08-07-2022 BASO # 0.0 103/ul Normal 0.0-0.[address] [facility] Comment on above: Performed By: #### U AMIC #### [facility] [address] [address] [address] Donis Mancini Basophils/100 WBC (Bld) 0.2 % Normal 0.2-2.[address] [facility] Comment on above: Performed By: #### U AMIC #### [facility] [address] [address] [address] Donis Mancini EO # 0.2 103/ul Normal 0.0-0.[address] [facility] Comment on above: Performed By: #### U AMIC #### [facility] [address] [address] [address] Donis Mancini Eosinophils/100 WBC (Bld) 1.8 % Normal 0.9-7.[address] [facility] Comment on above: Performed By: #### U AMIC #### [facility] [address] [place] [address] Dr. Donis Mancini Erythrocyte distribution width (RBC) [Ratio] 12.3 % Normal 11.0-15.[address] [facility] Comment on above: Performed By: #### U AMIC #### [facility] [address] [address] [address] Donis Mancini Hematocrit (Bld) [Volume fraction] 45.7 % Normal 36.0-48.[address] [facility] Comment on above: Performed By: #### U AMIC #### [facility] [address] [address] [address] Donis Mancini Hemoglobin (Bld) [Mass/Vol] 16.0 g/dL Normal 12.0-16.[address] [facility] Comment on above: Performed By: #### U AMIC #### [facility] [address] [address] [address] Donis Mancini IG # 0.07 10e3/ul Critically high 0.00-0.03 [facility] Comment on above: Performed By: #### U AMIC #### [facility] [address] [address] [address] Donis Mancini IG % 0.5 % Normal 0.0-0.[address] [facility] Comment on above: Performed By: #### U AMIC #### [facility] [address] [address] [address] Donis Mancini LYMPH # 1.5 103/ul Normal 1.2-3.[address] [facility] Comment on above: Performed By: #### U AMIC #### [facility] [address] [address] [address] Donis Mancini Lymphocytes/100 WBC (Bld) 11.2 % Critically low 20.5-60.[address] [facility] Comment on above: Performed By: #### U AMIC #### [facility] [address] [address] [address] Donis Mancini MANUAL DIFF REQ NO Normal [facility] Comment on above: Performed By: #### U AMIC #### [facility] [address] [address] [address] Donis Mancini MCH (RBC) [Entitic mass] 32.0 pg Normal 26.7-34.[address] [facility] Comment on above: Performed By: #### U AMIC #### [facility] [address] [address] [address] Donis Mancini MCHC (RBC) [Mass/Vol] 35.0 g/dL Normal 29.9-35.[address] [facility] Comment on above: Performed By: #### U AMIC #### [facility] [address] [address] [address] Donis Mancini MCV (RBC) [Entitic vol] 91.4 fL Normal 81.0-99.[address] [facility] Comment on above: Performed By: #### U AMIC #### [facility] [address] [address] [address] Donis Mancini MONO # 0.9 103/ul Critically high 0.3-0.8 [facility] Comment on above: Performed By: #### U AMIC #### [facility] [address] [address] [address] Donis Mancini Monocytes/100 WBC (Bld) 6.3 % Normal 1.7-12.[address] [facility] Comment on above: Performed By: #### U AMIC #### [facility] [address] [place], [place] [address] Dr. Donis Mancini NEUT # 10.9 103/ul Critically high 1.4-6.5 [facility] Comment on above: Performed By: #### U AMIC #### [facility] [address] [address] [address] Donis Mancini Neutrophils/100 WBC (Bld) 80.0 % Critically high 43.0-75.[address] [facility] Comment on above: Performed By: #### U AMIC #### [facility] [address] [address] [address] Donis Mancini Platelet mean volume (Bld) [Entitic vol] 11.5 fL Normal 9.5-13.[address] [facility] Comment on above: Performed By: #### U AMIC #### [facility] [address] [address] [address] Donis Mancini PLT 182 103/ul Normal 150-450 [facility] Comment on above: Performed By: #### U AMIC #### [facility] [address] [address] [address] Donis Mancini RBC 5.00 106/ul Normal 4.20-5.40 [facility] Comment on above: Performed By: #### U AMIC #### [facility] [id number] Donis Mancini WBC 13.6 103/ul Critically high 4.0-11.0 [facility] Comment on above: Performed By: #### U AMIC #### [facility] [address] [place], [place] [address] Dr. Donis Mancini LDHon 08-07-2022 LDH 171 U/L Normal 81-234 [facility] Comment on above: Performed By: #### C MP, URIC, LDH ####[facility] [address] [place], [place] [address]BmDr. Donis Mancini PROF 14(COMP METB)on 022 Albumin [Mass/Vol] 2.9 g/dL Critically low 3.4-5.0 [facility] Comment on above: Performed By: #### C MP, URIC, LDH ####[facility] [address] [place] [address]Dr. Donis Mancini Albumin/Globulin [Mass ratio] 0.6 {ratio} Normal [facility] Comment on above: Performed By: #### C MP, URIC, LDH ####[facility] [address] [place] [address]Dr. Donis Mancini ALP [Catalytic activity/Vol] 192 U/L Critically high 46-[address] [facility] Comment on above: Performed By: #### C MP, URIC, LDH ####[facility] [address] [place] [address]Dr. Donis Mancini ALT [Catalytic activity/Vol] 23 U/L Normal 14-[address] [facility] Comment on above: Performed By: #### C MP, URIC, LDH ####[facility] [address] [place], [place] [address]Dr. Donis Mancini Anion gap [Moles/Vol] 14.4 mmol/L Normal [facility] Comment on above: Performed By: #### C MP, URIC, LDH ####[facility] [address] [place], [place] [address]Dr. Donis Mancini AST [Catalytic activity/Vol] 23 U/L Normal 15-[address] [facility] Comment on above: Performed By: #### C MP, URIC, LDH ####[facility] [address] [place], [place] [address]Dr. Donis Mancini Bilirubin [Mass/Vol] 0.2 mg/dL Normal 0.2-1.[address] [facility] Comment on above: Performed By: #### C MP, URIC, LDH ####[facility] [address] [place] [address]Dr. Donis Mancini Calcium [Mass/Vol] 9.4 mg/dL Normal 8.5-10.1 [facility] Comment on above: Performed By: #### C MP, URIC, LDH ####[facility] [address] [place], [place] [address]Dr. Donis Mancini Chloride [Moles/Vol] 104 mmol/L Normal 98-107 [facility] Comment on above: Performed By: #### C MP, URIC, LDH ####[facility] [address] [place] [address]Dr. Donis Mancini CO2 [Moles/Vol] 21.7 mmol/L Normal 21.0-32.0 [facility] Comment on above: Performed By: #### C MP, URIC, LDH ####[facility] [address] [place] [address]Dr. Donis Mancini Creatinine [Mass/Vol] 0.46 mg/dL Critically low 0.55-1.02 [facility] Comment on above: Performed By: #### C MP, URIC, LDH ####[facility] [address] [place] [address]Dr. Donis Mancini EGFR-AF KOSOVAN >60 Normal >=60 [facility] Comment on above: Performed By: #### C MP, URIC, LDH ####[facility] [address] [place] [address]Dr. Donis Mancini EGFR-NON AF KOSOVAN >60 Normal >=60 [facility] Comment on above: Performed By: #### C MP, URIC, LDH ####[facility] [address] [place] [address]Dr. Donis Mancini Globulin (S) [Mass/Vol] 4.6 g/dL Normal [facility] Comment on above: Performed By: #### C MP, URIC, LDH ####[facility] [address] [place] [address]Dr. Donis Mancini Glucose [Mass/Vol] 89 mg/dL Normal 74-106 [facility] Comment on above: Performed By: #### C MP, URIC, LDH ####[facility] [address] [place] [address]Dr. Donis Mancini Potassium [Moles/Vol] 4.1 mmol/L Normal 3.5-5.1 [facility] Comment on above: Performed By: #### C MP, URIC, LDH ####[facility] [address] [place] [id number]. Donis Mancini Protein [Mass/Vol] 7.5 g/dL Normal 6.4-8.2 [facility] Comment on above: Performed By: #### C MP, URIC, LDH ####[facility] [address] [place] [id number]. Donis Mancini Sodium [Moles/Vol] 136 mmol/L Normal 136-145 [facility] Comment on above: Performed By: #### C MP, URIC, LDH ####[facility] [address] [place] [id number]. Donis Mancini Urea nitrogen [Mass/Vol] 8.0 mg/dL Normal 7.0-18.0 [facility] Comment on above: Performed By: #### C MP, URIC, LDH ####[facility] [address] [place] [address]Dr. Donis Mancini Urea nitrogen/Creatinine [Mass ratio] 17.4 mg/mg Normal [facility] Comment on above: Performed By: #### C MP, URIC, LDH ####[facility] [address] [place] [address]DrGene Mancini PROTIMEon 08-07-2022 INR Coag (PPP) [Relative time] {INR} Normal [facility] Comment on above: Performed By: #### U AMIC #### [facility] [address] [address] [address] Donis Mancini INR GUIDELINES SEE BELOW Normal [facility] Comment on above: Result Comment: NICCI RED INR: 2.0 - 3.0 CONDITIONS NOT LISTED BELOW 2.5 - 3.5 FOR PROSTHETIC HEART VALVE REPLACEMENT 2.5 - 3.5 RECURRENT THROMBOSIS Performed By: #### U AMIC #### [facility] [address] [address] [address] Donis Mancini PT Coag (PPP) [Time] 9.8 s Normal 9.0-11.6 [facility] Comment on above: Performed By: #### U AMIC #### [facility] [address] [address] [address] Donis Mancini PTTon 08-07-2022 aPTT Coag (Bld) [Time] 28.5 s Normal 22.3-36.2 [facility] Comment on above: Performed By: #### U AMIC #### [facility] [address] [place] [address] Dr. Donis Mancini UA (CLEAN/CATCH) SERVICE OR WORK DISPATCHER CHIEF/MICRO I F IND.on 08-07-2022 Bilirubin Ql (U) Negative Normal NEGATIVE [facility] Comment on above: Performed By: #### U AMIC #### [facility] [address] [place] [address] Dr. Donis Mancini Clarity (U) CLEAR Normal CLEAR [facility] Comment on above: Performed By: #### U AMIC #### [facility] [address] [place] [address] Dr. Donis Mancini Color (U) LT. YELLOW Normal YELLOW [facility] Comment on above: Performed By: #### U AMIC #### [facility] [address] [place] [address] Dr. Donis Mancini Glucose Ql (U) Negative Normal NEGATIVE [facility] Comment on above: Performed By: #### U AMIC #### [facility] [address] [address] [address] Donis Mancini Hemoglobin Ql (U) Negative Normal NEGATIVE [facility] Comment on above: Performed By: #### U AMIC #### [facility] [address] [address] [address] Donis Mancini Ketones Ql (U) Negative Normal NEGATIVE [facility] Comment on above: Performed By: #### U AMIC #### [facility] [address] [address] [address] Donis Mancini LEUKOCYTES Negative Normal NEGATIVE [facility] Comment on above: Performed By: #### U AMIC #### [facility] [address] [place] [address] Dr. Donis Mancini Nitrite Ql (U) Negative Normal NEGATIVE [facility] Comment on above: Performed By: #### U AMIC #### [facility] [address] [address] [address] Donis Mancini pH (U) 7.0 [pH] Normal 5-9 [facility] Comment on above: Performed By: #### U AMIC #### [facility] [address] [address] [address] Donis Mancini SPEC GRAVITY <=1.005 Abnormal 1.005-<=1.[address] [facility] Comment on above: Performed By: #### U AMIC #### [facility] [address] [address] [address] Donis Mancini UA PROTEIN Negative Normal NEGATIVE/ TRACE [facility] Comment on above: Performed By: #### U AMIC #### [facility] [address] [address] [address] Donis Mancini UR MICRO IND NOT INDICATED Normal [facility] Comment on above: Performed By: #### U AMIC #### [facility] [address] [place] [address] Dr. Donis Mancini Urobilinogen Qn (U) 0.2 {Sarah'U}/dL Normal 0.2 - 1. [address] [facility] Comment on above: Performed By: #### U AMIC #### [facility] [address] [address] [address] Donis Mancini URIC ACID SERUMon 08-07-2022 Urate [Mass/Vol] 3.8 mg/dL Normal 2.6-6.0 [facility] Comment on above: Performed By: #### C MP, URIC, LDH ####[facility] [address] [place] [address]Dr. Donis Mancini URINE T PROTEIN CREAT RATIOo n 08-07-2022 UR TOTAL PROTEIN <6.0 Normal <=12.0 [facility] Comment on above: Performed By: #### C T/NGNA #### [facility] [address] [address] [address] Donis Mancini URINE CREAT 13.45 mg/dL Critically low 20.00-300.00 [facility] Comment on above: Performed By: #### C T/NGNA #### [facility] [address] [address] [address] Donis Mancini US PREG BIOPHY W [...] COCO STERN Date: 2022-08-01 08:31 Normal [facility] CHLAMYDIA/GONOCOCCUS INESSA (SW AB/URINE/PAPon 07-31-2022 Chlamydia trachomatis, INESSA Negative Normal Negative [facility] Comment on above: Performed By: #### C T/NGNA #### [facility] [address] [place] [address] Dr. Donis Mancini Neisseria gonorrhoeae, INESSA Negative Normal Negative [facility] Comment on above: Performed By: #### C T/NGNA #### [facility] [address] [place] [address] Dr. Donis Mancini VAGINITIS/VAGINOSIS DNA PROB Domenic 07-31-2022 Simeon species Negative Normal Negative [facility] Comment on above: Performed By: #### V AGINT ####[facility] [address] [place] [address]DrGene Mancini Gardnerella vaginalis Negative Normal Negative [facility] Comment on above: Performed By: #### V AGINT ####[facility] [address] [place] [address]DrGene Mancini Trichomonas vaginalis Negative Normal Negative [facility] Comment on above: Performed By: #### V AGINT ####[facility] [address] [place] [address]DrGene Mancini GROUP B STREP CULTUREon S. agalactiae Ag Ql (Unsp spec) Culture Observations: NEGATIVE FOR GROUP B STREPTOCOCCUS. Normal [facility] Comment on above: Performed By: #### G BSCX #### [facility] [address] [place] [address] Dr. Donis Mancini US PREG BIOPHY W [...] COCO STERN Date: 2022-07-25 09:41 Normal [facility] US PREG GROWTHon 07-11-2022 [...] by: ESTEFANY BENNETT Date: 2022-07-11 19:[address] [facility] Covid-19 PCR (CVDTB)on 06-26 SARS-CoV-2 (COVID-19) RNA INESSA+probe Ql (Unsp spec) Not detected Normal NOT DETECTED [facility] Comment on above: Result [...] for this test is supported by the Toll Transmission Worker of Health and Human Service's declaration [...] used). Performed By: #### C T/NGNA #### [facility] [address] [place] [address] Dr. Donis Mancini GTT 3 HR PREGon 06-03-2022 Glucose [Mass/Vol] 94 mg/dL Normal 74-106 [facility] Comment on above: Performed By: #### U AMIC #### [facility] [address] [place] [address] Dr. Donis Mancini Glucose [Mass/Vol] 147 mg/dL Normal [facility] Comment on above: Performed By: #### U AMIC #### [facility] [address] [place] [address] Dr. Donis Mancini Glucose [Mass/Vol] 159 mg/dL Normal [facility] Comment on above: Performed By: #### U AMIC #### [facility] [address] [place] [address] Dr. Donis Mancini Glucose [Mass/Vol] 151 mg/dL Normal [facility] Comment on above: Performed By: #### U AMIC #### [facility] [address] [place] [address] Dr. Donis Mancini GLUCOSE - 1HRon 05-21-2022 Glucose [Mass/Vol] 141 mg/dL Critically high 74-106 [facility] Comment on above: Performed By: #### U AMIC #### [facility] [address] [place] [address] [address] Donis Mancini HEMOGRAM AND PLATELon 2021 Hematocrit (Bld) [Volume fraction] 39.1 % Normal 36.0-48.[address] [facility] Comment on above: Performed By: #### U AMIC #### [facility] [address] [place] [address] Dr. Donis Mancini Hemoglobin (Bld) [Mass/Vol] 13.1 g/dL Normal 12.0-16.0 [facility] Comment on above: Performed By: #### U AMIC #### [facility] [address] [place] [address] Dr. Donis Mancini MCH (RBC) [Entitic mass] 32.3 pg Normal 26.7-34.[address] [facility] Comment on above: Performed By: #### U AMIC #### [facility] [address] [place] [address] Dr. Donis Mancini MCHC (RBC) [Mass/Vol] 33.5 g/dL Normal 29.9-35.[address] [facility] Comment on above: Performed By: #### U AMIC #### [facility] [address] [place] [address] Dr. Donis Mancini MCV (RBC) [Entitic vol] 96.5 fL Normal 81.0-99.[address] [facility] Comment on above: Performed By: #### U AMIC #### [facility] [address] [place] [address] Dr. Donis Mancini PLT 220 103/ul Normal 150-450 [facility] Comment on above: Performed By: #### U AMIC #### [facility] [address] [place] [address] Dr. Donis Mancini RBC 4.05 106/ul Critically low 4.20-5.40 [facility] Comment on above: Performed By: #### U AMIC #### [facility] [address] [address] [address] Donis Mancini WBC 12.8 103/ul Critically high 4.0-11.0 [facility] Comment on above: Performed By: #### U AMIC #### [facility] [address] [address] [address] Donis Mancini US PREG BIOPHYSICAL NO [...] ESTEFANY BENNETT Date: 2022-05-11 06:25 Normal [facility] CULTURE URINEon 05-10-2022 CULTURE URINE Culture Observations: MODERATE GROWTH OF MIXED GENITAL RAMBO. NO POTENTIAL PATHOGENS SEEN. Normal [facility] Comment on above: Performed By: #### U RCX #### [facility] [address] [address] [address] Donis Mancini UA RANDOM W/MICROSCOPICon BACTERIA LARGE Abnormal NONE SEEN [facility] Comment on above: Performed By: #### U AMIC ####[facility] [address] [place] [address]DrGene Mancini Bilirubin Ql (U) Negative Normal NEGATIVE [facility] Comment on above: Performed By: #### U AMIC ####[facility] [address] [place] [address]DrGene Mancini CAST NONE SEEN Normal NONE SEEN [facility] Comment on above: Performed By: #### U AMIC ####[facility] [address] [place] [address]DrGene Mancini Clarity (U) CLEAR Normal CLEAR [facility] Comment on above: Performed By: #### U AMIC ####[facility] [address] [address]Dr. Donis Mancini Color (U) YELLOW Normal YELLOW [facility] Comment on above: Performed By: #### U AMIC ####[facility] [address] [place], [place] [address]Dr. Donis Mancini Crystals LM Nom (Urine sed) NONE SEEN Normal NONE SEEN [facility] Comment on above: Performed By: #### U AMIC ####[facility] [address] [place], [place] [address]Dr. Donis Mancini Epithelial cells LM Ql (Urine sed) MODERATE Abnormal NONE SEEN /RARE [facility] Comment on above: Performed By: #### U AMIC ####[facility] [address] [place], [place] [address]Dr. Donis Mancini Glucose Ql (U) 250 mg/dl Abnormal NEGATIVE [facility] Comment on above: Performed By: #### U AMIC ####[facility] [address] [place], [place] [address]Dr. Donis Mancini Hemoglobin Ql (U) TRACE-INTACT Abnormal NEGATIVE [facility] Comment on above: Performed By: #### U AMIC ####[facility] [address] [place], [place] [address]Dr. Donis Mancini Ketones Ql (U) Negative Normal NEGATIVE [facility] Comment on above: Performed By: #### U AMIC ####[facility] [address] [place], [place] [address]Dr. Donis Mancini LEUKOCYTES LARGE Abnormal NEGATIVE [facility] Comment on above: Performed By: #### U AMIC ####[facility] [address] [place] [address]Dr. Donis Mancini MUCOUS NONE SEEN Normal NONE SEEN [facility] Comment on above: Performed By: #### U AMIC ####[facility] W[address]my[address] [place], [place] [address]Dr. Donis Mancini Nitrite Ql (U) Negative Normal NEGATIVE [facility] Comment on above: Performed By: #### U AMIC ####[facility] [address] [place], [place] [address]Dr. Donis Mancini pH (U) 6.0 [pH] Normal 5-9 [facility] Comment on above: Performed By: #### U AMIC ####[facility] [address] [address]Dr. Donis Mancini RBC 2-5 Abnormal 0-2 [facility] Comment on above: Performed By: #### U AMIC ####[facility] [address] [address]DrGene Mancini SPEC GRAVITY <=1.005 Abnormal 1.005-<=1.[address] [facility] Comment on above: Performed By: #### U AMIC ####[facility] [address]ls[address] [place], [place] [address]DrGene Mancini UA PROTEIN Negative Normal NEGATIVE/ TRACE [facility] Comment on above: Performed By: #### U AMIC ####[facility] M[address] [place], [place] [address]Dr. Donis Mancini Urobilinogen Qn (U) 0.2 {Sarah'U}/dL Normal 0.2 - 1. [address] [facility] Comment on above: Performed By: #### U AMIC ####[facility] L[address] [place], [place] [address]DrGene Mancini WBC 10-20 Abnormal NONE SEEN [facility] Comment on above: Performed By: #### U AMIC ####[facility] Itxlf[address]vc[address] [place], [place] [address]Dr. Donis Mancini CULTURE URINEon 04-27-2022 CULTURE URINE Culture Observations: LIGHT GROWTH OF MIXED GENITAL RAMBO. NO POTENTIAL PATHOGENS SEEN. Normal [facility] Comment on above: Performed By: #### U RCX ####[facility] [address] [place], [place] [address]DrGene Mancini UA (CLEAN/CATCH) SERVICE OR WORK DISPATCHER CHIEF/MICRO I F IND.on 04-27-2022 Bilirubin Ql (U) Negative Normal NEGATIVE [facility] Comment on above: Performed By: #### U ACSIND, UMICRO ####[facility] I[address] [place], [place] [address]Dr. Donis Mancini Clarity (U) CLEAR Normal CLEAR [facility] Comment on above: Performed By: #### U ACSIND, UMICRO ####[facility] [address] [address]Dr. Donis Mancini Color (U) LT. YELLOW Normal YELLOW [facility] Comment on above: Performed By: #### U ACSIND, UMICRO ####[facility] [address] [address]Dr. Donis Mancini Glucose Ql (U) Negative Normal NEGATIVE [facility] Comment on above: Performed By: #### U ACSIND, UMICRO ####[facility] [address] [address]Dr. Donis Mancini Hemoglobin Ql (U) Negative Normal NEGATIVE [facility] Comment on above: Performed By: #### U ACSIND, UMICRO ####[facility] S[address] [place], [place] [address]Dr. Donis Mancini Ketones Ql (U) Negative Normal NEGATIVE [facility] Comment on above: Performed By: #### U ACSIND, ICRO ####[facility] [address] [place], [place] [address]Dr. Donis Mancini LEUKOCYTES SMALL Abnormal NEGATIVE [facility] Comment on above: Performed By: #### U ACSIND, UMICRO ####[facility] [address] [place], [place] [address]Dr. Donis Mancini Nitrite Ql (U) Negative Normal NEGATIVE [facility] Comment on above: Performed By: #### U ACSIND, UMICRO ####[facility] Ub[address] [place], [place] [address]Dr. Donis Mancini pH (U) 7.0 [pH] Normal 5-9 [facility] Comment on above: Performed By: #### U ACSIND, UMICRO ####[facility] [address] [address]Dr. oDnis Mancini SPEC GRAVITY 1.015 Normal 1.005-<=1.[address] [facility] Comment on above: Performed By: #### U ACSIND, UMICRO ####[facility] [address] [address]Dr. Donis Mancini UA PROTEIN Negative Normal NEGATIVE/ TRACE [facility] Comment on above: Performed By: #### U ACSWENDY, UMICRO ####[facility] [address] [address]Dr. Donis Mancini UR MICRO IND INDICATED Normal [facility] Comment on above: Performed By: #### U ACSWENDY, UMICRO ####[facility] [address] [address]Dr. Donis Mancini Urobilinogen Qn (U) 0.2 {Sarah'U}/dL Normal 0.2 - 1. 0 [facility] Comment on above: Performed By: #### U ACSWENDY, UMICRO ####[facility] [address] [address]Dr. Donis Mancini URINE MICROSCOPIC ONLYon BACTERIA MODERATE Abnormal NONE SEEN [facility] Comment on above: Performed By: #### U ACSWENDY, UMICRO ####[facility] [address] [address]Dr. Donis Mancini Bacteria identified Cx Nom (U) INDICATED Normal [facility] Comment on above: Performed By: #### U ACSWENDY, UMICRO ####[facility] [address] [address]Dr. Donis Mancini CAST NONE SEEN Normal NONE SEEN [facility] Comment on above: Performed By: #### U ACSWENDY, UMICRO ####[facility] [address] [address]Dr. Donis Mancini Crystals LM Nom (Urine sed) NONE SEEN Normal NONE SEEN [facility] Comment on above: Performed By: #### U ACSWENDY, UMICRO ####[facility] [address] [address]Dr. Donis Mancini Epithelial cells LM Ql (Urine sed) MODERATE Abnormal NONE SEEN /RARE [facility] Comment on above: Performed By: #### U ACSWENDY, UMICRO ####[facility] [address] [place], [place] [address]Kw. Yilan Mancini MUCOUS NONE SEEN Normal NONE SEEN [facility] Comment on above: Performed By: #### U DONNA DAMON ####[facility] [address] [place], [place] [address]Nu. Donis Mancini RBC NONE SEEN Abnormal 0-2 [facility] Comment on above: Performed By: #### U DONNA DAMON ####[facility] [address] [place], [place] [address]Wg. Donis Mancini WBC 2-5 Abnormal NONE SEEN [facility] Comment on above: Performed By: #### U DONNA DAMON ####[facility] [address] [place], [place] [address]Lc. Donis Mancini US KIDNEYSon 04-27-2022 US KIDNEYS [...] ANDREAS AN Date: 2022-04-27 17:48 Normal [facility] CULTURE URINEon 04-16-2022 CULTURE [...] F Trimethoprim/Sulfame thoxazole <=20 S F Normal [facility] Comment on above: Performed By: #### U RCX #### [facility] [address] [place] [address] Dr. Donis Mancini US PREG ANATOMY SINGLEon [...] by: ESTEFANY BENNETT Date: 2022-04-12 22:[address] [facility] UA RANDOM W/MICROSCOPICon BACTERIA SMALL Abnormal NONE SEEN [facility] Comment on above: Performed By: #### U AMIC #### [facility] [address] [place] [address] Dr. Donis Mancini Bilirubin Ql (U) Negative Normal NEGATIVE [facility] Comment on above: Performed By: #### U AMIC #### [facility] [address] [place] [address] Dr. Donis Mancini CAST NONE SEEN Normal NONE SEEN [facility] Comment on above: Performed By: #### U AMIC #### [facility] [address] [place] [address] Dr. Donis Mancini Clarity (U) CLEAR Normal CLEAR [facility] Comment on above: Performed By: #### U AMIC #### [facility] [address] [place] [address] Dr. Donis Mancini Color (U) LT. YELLOW Normal YELLOW [facility] Comment on above: Performed By: #### U AMIC #### [facility] [address] [place] [address] Dr. Donis Mancini Crystals LM Nom (Urine sed) NONE SEEN Normal NONE SEEN [facility] Comment on above: Performed By: #### U AMIC #### [facility] [address] [place] [address] Dr. Donis Mancini Epithelial cells LM Ql (Urine sed) FEW Abnormal NONE SEEN /RARE [facility] Comment on above: Performed By: #### U AMIC #### [facility] [address] [place] [address] Dr. Donis Mancini Glucose Ql (U) Negative Normal NEGATIVE [facility] Comment on above: Performed By: #### U AMIC #### [facility] [address] [place] [address] Dr. Donis Mancini Hemoglobin Ql (U) Negative Normal NEGATIVE [facility] Comment on above: Performed By: #### U AMIC #### [facility] [address] [place] [address] Dr. Donis Mancini Ketones Ql (U) Negative Normal NEGATIVE [facility] Comment on above: Performed By: #### U AMIC #### [facility] [address] [place] [address] Dr. Donis Mancini LEUKOCYTES LARGE Abnormal NEGATIVE [facility] Comment on above: Performed By: #### U AMIC #### [facility] [address] [address] [address] Donis Mancini MUCOUS NONE SEEN Normal NONE SEEN [facility] Comment on above: Performed By: #### U AMIC #### [facility] [address] [address] [address] Donis Mancini Nitrite Ql (U) Negative Normal NEGATIVE [facility] Comment on above: Performed By: #### U AMIC #### [facility] [address] [place] [address] Dr. Donis Mancini pH (U) 5.5 [pH] Normal 5-[address] [facility] Comment on above: Performed By: #### U AMIC #### [facility] [address] [place] [address] Dr. Donis Mancini RBC 0-2 Normal 0-[address] [facility] Comment on above: Performed By: #### U AMIC #### [facility] [address] [place] [address] Dr. Donis Mancini SPEC GRAVITY <=1.005 Abnormal 1.005-<=1.[address] [facility] Comment on above: Performed By: #### U AMIC #### [facility] [address] [place] [address] Dr. Donis Mancini UA PROTEIN Negative Normal NEGATIVE/ TRACE [facility] Comment on above: Performed By: #### U AMIC #### [facility] [address] [place] [address] Dr. Donis Mancini Urobilinogen Qn (U) 0.2 {Sarah'U}/dL Normal 0.2 - 1. [address] [facility] Comment on above: Performed By: #### U AMIC #### [facility] [address] [place] [address] Dr. Donis Mancini WBC 5-10 Abnormal NONE SEEN [facility] Comment on above: Performed By: #### U AMIC #### [facility] [address] [address] [address] Donis Mancini HEP B SURFACE ANTIGEN SCREEN on 01-23-2022 HBsAg Screen Negative Normal Negative [facility] Comment on above: Performed By: #### U AMIC #### [facility] [address] [address] [address] Donis Mancini HEPATITIS C VIRUS AB W/ REFL EX QUANTon 01-23-2022 HCV AB 0.1 s/co ratio Normal 0.0-0.9 [facility] Comment on above: Performed By: #### H CVPCRR ####[facility] [address] [address]Dr. Donis Mancini Interpretation: Comment Normal [facility] Comment on above: Result Comment: Nega tive Not infected with HCV, unless recent infection is suspected or other evidence exists to indicate HCV infection. Performed By: #### H CVPCRR ####[facility] [address] [address]Dr. Donis Mancini HIV 1 AND 2 WITH REFLEXon HIV Screen 4th Generation wRfx Non-Reactive Normal Non Reactive [facility] Comment on above: Result Comment: HIV Negative HIV-1/HIV-2 antibodies and HIV-1 p24 antigen were NOT detected. There is no laboratory evidence of HIV infection. Performed By: #### H IV12 ####[facility] [address] [address]Dr. Donis Mancini RPR QUANTon 01-23-2022 Rapid Plasma Reagin, Quant Non-Reactive Normal NonRea<1:1 [facility] Comment on above: Result [...] utilized, such as Treponema pallidum (Syphilis) Screening [place] (241839) or Rapid Plasma Reagin (RPR) Test With Reflex to Quantitative RPR and Confirmatory Treponema pallidum Antibodies ([id number]). Performed By: #### R PRQ ####[facility] [address] [address]Dr. Donis Mancini RUBELLA AB IGGon 01-23-2022 Rubella Antibodies, IgG 1.60 index Normal Immune >0.[address] [facility] Comment on above: Result Comment: Non- immune <0.90 Equivocal 0.90 - 0.99 Immune >0.99 Performed By: #### U AMIC #### [facility] [address] [address] [address] Donis Mancini CBC AUTO DIFFon 01-22-2022 BASO # 0.1 103/ul Normal 0.0-0.[address] [facility] Comment on above: Performed By: #### U AMIC #### [facility] [address] [place] [address] Dr. Donis Mancini Basophils/100 WBC (Bld) 0.5 % Normal 0.2-2.[address] [facility] Comment on above: Performed By: #### U AMIC #### [facility] [address] [place] [address] Dr. Donis Mancini EO # 0.6 103/ul Normal 0.0-0.[address] [facility] Comment on above: Performed By: #### U AMIC #### [facility] [address] [place] [address] Dr. Donis Mancini Eosinophils/100 WBC (Bld) 5.1 % Normal 0.9-7.[address] [facility] Comment on above: Performed By: #### U AMIC #### [facility] [address] [place] [address] Dr. Donis Mancini Erythrocyte distribution width (RBC) [Ratio] 12.0 % Normal 11.0-15.0 [facility] Comment on above: Performed By: #### U AMIC #### [facility] [address] [place] [address] Dr. Donis Mancini Hematocrit (Bld) [Volume fraction] 45.8 % Normal 36.0-48.[address] [facility] Comment on above: Performed By: #### U AMIC #### [facility] [address] [address] [address] Donis Mancini Hemoglobin (Bld) [Mass/Vol] 15.3 g/dL Normal 12.0-16.0 [facility] Comment on above: Performed By: #### U AMIC #### [facility] [address] [address] [address] Donis Mancini IG # 0.03 10e3/ul Normal 0.00-0.[address] [facility] Comment on above: Performed By: #### U AMIC #### [facility] [address] [address] [address] Donis Mancini IG % 0.3 % Normal 0.0-0.5 [facility] Comment on above: Performed By: #### U AMIC #### [facility] [address] [place] [address] Dr. Donis Mancini LYMPH # 1.7 103/ul Normal 1.2-3.8 [facility] Comment on above: Performed By: #### U AMIC #### [facility] [address] [place] [address] Dr. Donis Mancini Lymphocytes/100 WBC (Bld) 15.9 % Critically low 20.5-60.[address] [facility] Comment on above: Performed By: #### U AMIC #### [facility] [address] [place] [address] Dr. Donis Mancini MANUAL DIFF REQ NO Normal [facility] Comment on above: Performed By: #### U AMIC #### [facility] [address] [address] [address] Donis Mancini MCH (RBC) [Entitic mass] 31.5 pg Normal 26.7-34.0 [facility] Comment on above: Performed By: #### U AMIC #### [facility] [address] [address] [address] Donis Mancini MCHC (RBC) [Mass/Vol] 33.4 g/dL Normal 29.9-35.2 [facility] Comment on above: Performed By: #### U AMIC #### [facility] [address] [address] [address] Donis Mancini MCV (RBC) [Entitic vol] 94.2 fL Normal 81.0-99.0 [facility] Comment on above: Performed By: #### U AMIC #### [facility] [address] [place] [address] Dr. Donis Mancini MONO # 0.6 103/ul Normal 0.3-0.8 [facility] Comment on above: Performed By: #### U AMIC #### [facility] [address] [place] [address] Dr. Donis Mancini Monocytes/100 WBC (Bld) 5.8 % Normal 1.7-12.0 [facility] Comment on above: Performed By: #### U AMIC #### [facility] [address] [place] [address] Dr. Donis Mancini NEUT # 7.8 103/ul Critically high 1.4-6.5 [facility] Comment on above: Performed By: #### U AMIC #### [facility] [address] [place] [address] Dr. Donis Mancini Neutrophils/100 WBC (Bld) 72.4 % Normal 43.0-75.0 [facility] Comment on above: Performed By: #### U AMIC #### [facility] [address] [place] [address] Dr. Donis Mancini Platelet mean volume (Bld) [Entitic vol] 9.9 fL Normal 9.5-13.5 [facility] Comment on above: Performed By: #### U AMIC #### [facility] [address] [place] [address] Dr. Donis Mancini PLT 281 103/ul Normal 150-450 [facility] Comment on above: Performed By: #### U AMIC #### [facility] [address] [place] [address] Dr. Donis Mancini RBC 4.86 106/ul Normal 4.20-5.40 [facility] Comment on above: Performed By: #### U AMIC #### [facility] [address] [place] [address] Dr. Donis Mancini WBC 10.8 103/ul Normal 4.0-11.[address] [facility] Comment on above: Performed By: #### U AMIC #### [facility] [address] [address] [address] Donis Mancini CULTURE URINEon 01-22-2022 CULTURE URINE Culture Observations: LIGHT GROWTH OF MIXED GENITAL RAMBO. NO POTENTIAL PATHOGENS SEEN. Normal [facility] Comment on above: Performed By: #### U RCX #### [facility] [address] [address] [address] Donis Mancini GLYCOHEMOGLOBIN A1Con 2021 ADA RECOMMENDATION SEE BELOW Normal [facility] Comment on above: Result Comment: ADA RECOMMENDED LIMIT 4.0 - 6.0 ADA THERAPEUTIC TARGET < 7.0 ACTION SUGGESTED > 7.0 Performed By: #### A 1C ####[facility] [address] [place] [address]DrGene Mancini Glucose [Mass/Vol] 100 mg/dL Normal [facility] Comment on above: Performed By: #### A 1C ####[facility] [address] [address]Dr. Donis Mancini HbA1c (Bld) [Mass fraction] 5.1 % Normal 4.5-6.[address] [facility] Comment on above: Performed By: #### A 1C ####[facility] [address] [place] [id number] Mancini SEAN BOX TEST PT SEND OUTo n 01-22-2022 SENT TO REF LAB 01/22/2022 Normal [facility] Comment on above: Performed By: #### N BOX ####[facility] [address] [id number]. Donis Mancini TYPE AND SCREENon 01-22-2022 TYPE AND SCREEN Negative Normal [facility] Comment on above: Performed By: #### T NS #### [facility] [address] [address] [address] Donis Mancini US PREG TVon 01-17-2022 [...] by: COCO STERN Date: 2022-01-17 09:[address] [facility] Provider Letteron 04-06-2021 Provider Letter April 06, 2021 Dear Vimal, We have been trying to reach you with no success. It is important that you return our call regarding your appointment upon receiving this letter. Also, at the time of your call, please provide us with your current information. Thank you for your prompt attention to this matter. Sincerely, [facility] [address] [place] [id number] Normal [facility] Ambulatory Clinical Summaryo n 03-10-2021 Ambulatory Clinical Summary {[id number]}CD:[id number] Normal [facility] Ambulatory Clinical Summaryo n 03-05-2021 Ambulatory Clinical Summary {[id number]}CD:[id number] Normal [facility] Gynecology Phone Visit- Tele healthon 03-05-2021 [...] only communication with the patient located at [address] [place] [phone], with no one else. 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 CODING DATE: 12/18/2020 FINAL [facility] STATUS: Home (Routine DC) PAYOR: Ila ADMIT DX: REASON FOR VISIT DX: U07.1 [...] CphT Date Saved: 12/18/2020 12:44 pm Normal [facility] Physician Orderon 12-16-2020 Physician Order [id number] Normal [facility] Rapid COVID Antigen (MC)on 12-16-2020 Rapid COV Int NEG Ctl Pass Normal [facility] Comment on above: Performed By: #### 2 [id number] #### [facility] [address] [place] [address] Rapid COV Int POS Ctl Pass Normal [facility] Comment on above: Performed By: #### 2 [id number] #### [facility] [address] [place] [address] SARS-CoV-2 (COVID-19) RNA INESSA+probe Ql (Unsp spec) Detected Abnormal Not Detected [facility] Comment on above: Result Comment: Left a message for callback. 12/16/2020 11:42:47 EDT Results faxed to infection control. The [employer] Veritor? System for Rapid Detection of SARS-CoV-2 [...] or revoked sooner. Performed By: #### 2 [id number] #### [facility] [address] [place] [address] Employed in Healthcare Unknown Normal [facility] Comment on above: Performed By: #### 2 [id number] #### [facility] [address] [place] [address] First Test Unknown [facility] Comment on above: Performed By: #### 2 [id number] #### [facility] [address] [place] [id number] Hospitalized? NO Normal [facility] Comment on above: Performed By: #### 2 [id number] #### [facility] [address] [place] [address] ICU NO Normal [facility] Comment on above: Performed By: #### 2 [id number] #### [facility] [address] [place] [address] ? Unknown Normal [facility] Comment on above: Performed By: #### 2 [id number] #### [facility] [address] [place] [address] Resides in a Congregate Care Setting Unknown Normal [facility] Comment on above: Performed By: #### 2 [id number] #### [facility] [address] [place] [address] Symptomatic as defined by CDC YES Normal [facility] Comment on above: Performed By: #### 2 [id number] #### [facility] [address] [place] [address] Ambulatory Clinical Summaryo n 11-25-2020 Ambulatory Clinical Summary {[id number]}CD:[id number] Normal [facility] Vital Signs Date Time Vital Sign Value Performing Clinician Facility 04-30-2025 11:52-0400 Body mass index (BMI) [Ratio] 31 kg/m2 Rossana Rhodesdale PA Work Phone: [facility] 04-30-2025 11:52-0400 Body weight 79.38 kg Rossana Rachel PA Work Phone: [facility] 04-30-2025 11:52-0400 Diastolic blood pressure 94 mm[Hg] Rossana Rachel PA Work Phone: [facility] 04-30-2025 11:52-0400 Systolic blood pressure 140 mm[Hg] Rossana Rhodesdale PA Work Phone: [facility] 04-11-2025 15:38-0400 Body mass index (BMI) [Ratio] 30.2 kg/m2 Rossana Rhodesdale PA Work Phone: [facility] 04-11-2025 15:38-0400 Body weight 77.34 kg Rossana Rachel PA Work Phone: [facility] 04-11-2025 15:38-0400 Diastolic blood pressure 100 mm[Hg] Rossana Rachel PA Work Phone: [facility] 04-11-2025 15:38-0400 Systolic blood pressure 142 mm[Hg] Rossana Rachel PA Work Phone: [facility] 03-14-2025 11:36-0400 Body mass index (BMI) [Ratio] 29.23 kg/m2 Jose Michael DO Work Phone: [facility] 03-14-2025 11:36-0400 Body weight 74.84 kg Jose Michael DO Work Phone: [facility] 03-14-2025 11:36-0400 Diastolic blood pressure 76 mm[Hg] Jose Michael DO Work Phone: [facility] 03-14-2025 11:36-0400 Systolic blood pressure 112 mm[Hg] Jose Michael DO Work Phone: [facility] 02-20-2025 16:08-0400 Body mass index (BMI) [Ratio] 28.83 kg/m2 Rossana Leach PA Work Phone: [facility] 02-20-2025 16:08-0400 Body weight 73.82 kg Rossana Rachel PA Work Phone: [facility] 02-20-2025 16:08-0400 Diastolic blood pressure 82 mm[Hg] Rossana Rachel PA Work Phone: [facility] 02-20-2025 16:08-0400 Systolic blood pressure 110 mm[Hg] Rossana Rachel PA Work Phone: [facility] 01-14-2025 15:42-0400 Body mass index (BMI) [Ratio] 27.3 kg/m2 Jose Michael DO Work Phone: [facility] 01-14-2025 15:42-0400 Body weight 69.91 kg Jose Michael DO Work Phone: [facility] 01-14-2025 15:42-0400 Diastolic blood pressure 70 mm[Hg] Jose Michael DO Work Phone: [facility] 01-14-2025 15:42-0400 Systolic blood pressure 120 mm[Hg] Jose Michael DO Work Phone: [facility] 08-20-2024 10:55-0500 Body mass index (BMI) [Ratio] 25.93 kg/m2 Rossana Rachel PA Work Phone: [facility] 08-20-2024 10:55-0500 Body weight 66.41 kg Rossana Leach TRUE Work Phone: [facility] 08-20-2024 10:55-0500 Diastolic blood pressure 70 mm[Hg] Rossana Leach TRUE Work Phone: [facility] 08-20-2024 10:55-0500 Systolic blood pressure 120 mm[Hg] Rossana Leach TRUE Work Phone: [facility] 08-06-2024 09:38-0500 Body mass index (BMI) [Ratio] 25.47 kg/m2 Jose Michael DO Work Phone: [facility] 08-06-2024 09:38-0500 Body weight 65.23 kg Jose Michael DO Work Phone: [facility] 08-06-2024 09:38-0500 Diastolic blood pressure 70 mm[Hg] Jose Michael DO Work Phone: [facility] 08-06-2024 09:38-0500 Systolic blood pressure 120 mm[Hg] Jose Michael DO Work Phone: [facility] 06-29-2024 09:12-0400 Body mass index (BMI) [Ratio] 24.58 kg/m2 Nom Nurse [facility] 06-29-2024 09:12-0400 Body weight 62.94 kg Nom Nurse [facility] 06-29-2024 09:12-0400 Diastolic blood pressure 72 mm[Hg] Noms Nurse [facility] 06-29-2024 09:12-0400 Systolic blood pressure 122 mm[Hg] Nom Nurse [facility] 12-26-2022 13:45-0400 Body height 160.02 cm Jennifer Huston Other [employer] Other 12-26-2022 13:45-0400 Body mass index (BMI) [Ratio] 27.45 kg/m2 Jennifer Huston Other [employer] Other 12-26-2022 13:45-0400 Body temperature 97 [degF] Jennifer Huston Other [employer] Other 12-26-2022 13:45-0400 Body weight 70.31 kg Jennifer Huston Other [employer] Other 12-26-2022 13:45-0400 Diastolic blood pressure 89 mm[Hg] Jennifer Huston Other [employer] Other 12-26-2022 13:45-0400 Respiratory rate 18 /min Jennifer Huston Other [employer] Other 12-26-2022 13:45-0400 SaO2% (BldA) [Mass fraction] 100 % Jennifer Huston Other [employer] Other 12-26-2022 13:45-0400 Systolic blood pressure 135 mm[Hg] Jennifer Huston Other [employer] Other Encounters Encounter Date Encounter Type Care Provider Facility Start: 04-30-2025 End: 04-30-2025 Bamboo flowsheet Rossana BISWAS Work Phone: [facility] [place] Start: 04-30-2025 End: 04-30-2025 Bamboo flowsheet Rossana BISWAS Work Phone: [facility] Start: 04-30-2025 End: 04-30-2025 ambulatory ROSSANA LEACH Not Available Start: 04-30-2025 End: 04-30-2025 Patient encounter status Rossana BISWAS Work Phone: [facility] Work Phone: Start: 04-30-2025 End: 04-30-2025 flow sheet Rossana BISWAS Work Phone: [facility] Comment on above: BP check; -induced hypertension in third trimester ([facility]); Gestational diabetes mellitus (GDM) in third trimester, gestational diabetes method of control unspecified ([facility]) Start: 04-27-2025 End: 04-27-2025 Clinisync Result Encounter Rossana BISWAS Work Phone: [facility] Unsolicited Start: 04-27-2025 End: 04-27-2025 Clinisync Result Encounter Rossana BISWAS Work Phone: [facility] Unsolicited Start: 04-25-2025 End: 04-25-2025 flow sheet Rossana BISWAS Work Phone: [facility] Comment on above: Second trimester pre gnancy ([facility]); 27 weeks gestation of ([facility]); induced hypertension, antepartum ([facility]) Start: 04-25-2025 End: 04-25-2025 ambulatory ROSSANA LEACH Not Available Start: 04-25-2025 End: 04-25-2025 Bamboo flowsheet Rossana BISWAS Work Phone: [facility] Start: 04-25-2025 End: 04-25-2025 Bamboo flowsheet Rossana BISWAS Work Phone: [facility] Start: 04-11-2025 End: 04-11-2025 ambulatory ROSSANA RACHEL Not Available Start: 04-11-2025 End: 04-11-2025 flow sheet Rossana BISWAS Work Phone: [facility] Comment on above: Second trimester pre gnancy ([facility]); 25 weeks gestation of ([facility]); Diabetes mellitus screening; Elevated BP without diagnosis of hypertension Start: 04-11-2025 End: 04-11-2025 Bamboo flowsheet Rossana BISWAS Work Phone: [facility] Start: 04-11-2025 End: 04-11-2025 Bamboo flowsheet Rossana BISWAS Work Phone: [facility] Start: 03-25-2025 End: 03-25-2025 Clinisync [...] Comment on above: Second trimester pre gnancy ([facility]); 21 weeks gestation of ([facility]) Start: 03-08-2025 End: 03-08-2025 Clinisync Result Encounter Jose Michael DO Work Phone: [facility] Unsolicited Start: 03-08-2025 End: 03-08-2025 Clinisync Result Encounter Jose Michael DO Work Phone: [facility] External Department Unsolicited Start: 02-20-2025 End: 02-20-2025 Patient encounter procedure Rossana BISWAS Work Phone: [facility] Start: 02-20-2025 End: 02-20-2025 flow sheet Rossana BISWAS Work Phone: [facility] Comment on above: Screening, , [...] to original px Rossana BISWAS Work Phone: [facility] Comment on above: Postoperative examin [...] Start: 08-10-2024 End: 08-10-2024 ambulatory PHYSICIAN NO [facility] Work Phone: Start: 08-10-2024 End: 08-10-2024 Departed Referred PHYSICIAN NO [facility] Start: [...] 7w1d Start: 06-29-2024 End: 06-29-2024 ambulatory JOSE MICHAEL Not Available Start: 12-26-2022 Office outpatient ne w 20 minutes Jennifer Huston [facility] Start: 12-26-2022 End: 12-26-2022 ambulatory Jennifer Huston Other [employer] Other Start: 12-26-2022 End: 12-26-2022 Patient encounter procedure PEDIATRIC IMMUNOLOGIST-C Jennifer Huston Work Phone: [facility] Work Phone: Start: 11-02-2022 End: 11-02-[address] JOSE RODRIGUEZ . Facility:[facility] Start: 08-16-2022 End: 08-16-[address] DOCTOR RAMIREZ Facility:[facility] Start: 08-10-2022 End: 08-12-2022 Evaluation and management of inpatient DR DOMINIQUE MISSarath Facility:[facility] Start: 08-07-2022 End: 08-07-[address] [...] Date Procedure Procedure Detail Performing Clinician Start: 04-30-2025 Urnls dip stick/tabl et rgnt non-auto w/o micrscp Jose Michael DO Work Phone: Start: 04-27-2025 ALL CBC WITH AUTO DIFF Rossana BISWAS Work Phone: Start: 04-25-2025 Urnls dip stick/tabl et rgnt [...] 08-10-2024 ALL CBC WITH AUTO DIFF Jose [facility] DO Work Phone: Start: 08-10-2024 [facility] PREG QUANT HCG Core y Michael DO Work Phone: Start: 07-21-2024 ALL CBC WITH AUTO DIFF Jose Michael DO Work Phone: Start: 07-21-2024 [facility] DRUG SCREEN RAPI D (URINE) [facility] DO Work Phone: Start: 06-29-2024 End: 06-29-2024 Urnls dip stick/tablet rgnt non-auto w/o micrscp [facility] DO Work Phone: Start: 12-26-2022 Plain X-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 hand PEDIATRIC IMMUNOLOGIST-C Jennifer Huston Work Phone: Start: 11-02-2022 Cytp cerv/vag auto t hin layer prep mnl screen [facility] DO Work Phone: Start: 08-10-2022 Delivery [...] Detail Author Start: 05-27-2025 Influenza vaccination [facility] Start: 05-14-2025 End: 05-14-2025 Patient encounter procedure 05/14/2025 2:40 PM EDT Routine [facility] [address] [place] [address] [place] [address] Jose Rodriguez DO [address] [place] [address] [facility] Start: 04-30-2025 End: 10-31-2025 US biophysical profile w non stress test US biophysical profile w non stress test Imaging Routine -induced hypertension in third trimester ([facility]) Gestational diabetes mellitus (GDM) in third trimester, gestational diabetes method of control unspecified ([facility]) Expected: 04/30/2025 (Approximate), Expires: 10/31/2025 [facility] Work Phone: Comment on above: Expected: 04/30/2025 (Approximate), Expires: 10/31/2025 Start: 04-30-2025 End: 08-30-2025 US for US OB follow up transabdominal approach Imaging Routine -induced hypertension in third trimester ([facility]) Gestational diabetes mellitus (GDM) in third trimester, gestational diabetes method of control unspecified ([facility]) Expected: 04/30/2025, Expires: 08/30/2025 [facility] Comment on above: Expected: 04/30/2025 , Expires: 08/30/2025 Start: 04-30-2025 End: 04-30-2025 Patient encounter procedure 04/30/2025 10:50 AM EDT Routine [facility] [address] [place] [phone] Rossana Leach PA [address] [place] [address] [facility] [place] Start: 04-25-2025 End: 04-25-2025 Patient encounter procedure [facility] Comment on above: Arrived Start: 04-25-2025 End: 04-25-2026 Alanine aminotransferase [Enzymatic activity/volume] in Serum or Plasma ALT Lab Routine induced hypertension, antepartum ([facility]) Expected: 04/25/2025 (Approximate), Expires: 04/25/2026 [facility] Comment on above: Expected: 04/25/2025 (Approximate), Expires: 04/25/2026 Start: 04-25-2025 End: 04-25-2026 Aspartate aminotransferase [Enzymatic activity/volume] in Serum or Plasma AST Lab Routine induced hypertension, antepartum ([facility]) Expected: 04/25/2025 (Approximate), Expires: 04/25/2026 [facility] Comment on above: Expected: 04/25/2025 (Approximate), Expires: 04/25/2026 Start: 04-25-2025 End: 04-25-2026 CBC W Auto Differential panel - Blood CBC and differential Lab Routine induced hypertension, antepartum ([facility]) Expected: 04/25/2025 (Approximate), Expires: 04/25/2026 [facility] Comment on above: Expected: 04/25/2025 (Approximate), Expires: 04/25/2026 Start: 04-25-2025 End: 04-25-2026 Creatinine [Mass/volume] in Serum or Plasma Creatinine Lab Routine induced hypertension, antepartum ([facility]) Expected: 04/25/2025 (Approximate), Expires: 04/25/2026 [facility] Work Phone: Comment on above: Expected: 04/25/2025 (Approximate), Expires: 04/25/2026 Start: 04-25-2025 End: 04-25-2026 Lactate dehydrogenase [Enzymatic activity/volume] in Serum or Plasma by Lactate to pyruvate reaction Lactate dehydrogenase Lab Routine induced hypertension, antepartum ([facility]) Expected: 04/25/2025, Expires: 04/25/2026 [facility] Comment on above: Expected: 04/25/2025 , Expires: 04/25/2026 Start: 04-25-2025 End: 04-25-2026 Protein, urine, 24 hour Protein, urine, 24 hour Lab Routine induced hypertension, antepartum ([facility]) Expected: 04/25/2025 (Approximate), Expires: 04/25/2026 [facility] Comment on above: Expected: 04/25/2025 (Approximate), Expires: 04/25/2026 Start: 04-25-2025 End: 04-25-2026 Pt and ptt Pt and ptt Lab Routine induced hypertension, antepartum ([facility]) Expected: 04/25/2025, Expires: 04/25/2026 [facility] Comment on above: Expected: 04/25/2025 , Expires: 04/25/2026 Start: 04-25-2025 End: 04-25-2026 Urate [Mass/volume] in Serum or Plasma Uric acid Lab Routine induced hypertension, antepartum ([facility]) Expected: 04/25/2025 (Approximate), Expires: 04/25/2026 [facility] Comment on above: Expected: 04/25/2025 (Approximate), Expires: 04/25/2026 Start: 04-25-2025 End: 04-25-2026 Urea nitrogen [Mass/volume] in Serum or Plasma BUN Lab Routine induced hypertension, antepartum ([facility]) Expected: 04/25/2025, Expires: 04/25/2026 [facility] Comment on above: Expected: 04/25/2025 , Expires: 04/25/2026 Start: 04-11-2025 End: 04-11-2025 Patient encounter procedure 04/11/2025 3:30 PM EDT Routine [facility] [address] [place] [phone] Rossana Leach PA [address] [place] [address] [facility] Start: 04-11-2025 End: 04-11-2026 CBC panel - Blood by Automated count CBC Lab Routine Diabetes mellitus screening Expected: 04/11/2025 (Approximate), Expires: 04/11/2026 [facility] Work Phone: Comment on above: Expected: 04/11/2025 (Approximate), Expires: 04/11/2026 Start: 04-11-2025 End: 04-11-2026 Measurement of glucose 1 hour after glucose challenge for glucose tolerance test Glucose tolerance, 1 hour Lab Routine Diabetes mellitus screening Expected: 04/11/2025 (Approximate), Expires: 04/11/2026 [facility] Comment on above: Expected: 04/11/2025 (Approximate), Expires: 04/11/2026 Start: 03-14-2025 End: 03-14-2025 Patient encounter procedure 03/14/2025 10:50 AM EDT Routine [facility] [address] [place] [address] Jose Rodriguez, DO [address] [place] [address] [facility] Start: 02-20-2025 End: 02-20-2025 [...] Initial [facility] [address] [place] [address] [facility] Start: 12-14-2024 End: 12-14-2024 Professional / ancillary services management 12/14/2024 8:30 AM EDT Ancillary Procedure [facility] [address] [place] [phone] [facility] Start: 08-20-2024 End: 08-20-2024 Patient encounter procedure 08/20/2024 10:20 AM EST Office Visit [facility] [address] [facility] [place] [address] Rossana Leach PA [address] [place], [place] [id number] [facility] Start: 08-06-2024 End: 08-06-2024 Patient encounter procedure 08/06/2024 9:10 AM EST Routine [facility] [address] [place] [address] Jose Rodriguez DO [address] [place], [place] [id number] [facility] Start: 06-29-2024 End: 06-29-2025 ABO/Rh ABO/Rh Lab Routine Missed menses , unspecified gestational age Expected: 06/29/2024 (Approximate), Expires: 06/29/2025 [facility] Comment on above: Expected: 06/29/2024 (Approximate), Expires: 06/29/2025 Start: 06-29-2024 End: 06-29-2025 Blood type and Indirect antibody screen panel - Blood Type and screen Lab Routine Missed menses , unspecified gestational age Expected: 06/29/2024 (Approximate), Expires: 06/29/2025 [facility] Work Phone: Comment on above: Expected: 06/29/2024 (Approximate), Expires: 06/29/2025 Start: 06-29-2024 End: 06-29-2025 Drugs of abuse panel - Urine by Screen method Rapid drug screen, urine Lab Routine , unspecified gestational age Encounter for supervision of normal first in first trimester Expected: 06/29/2024 (Approximate), Expires: 06/29/2025 [facility] Comment on above: Expected: 06/29/2024 (Approximate), Expires: 06/29/2025 Start: 06-29-2024 End: 06-29-2025 US Pelvis transvaginal US OB transvaginal Imaging Routine Missed menses Expected: 06/29/2024 (Approximate), Expires: 06/29/2025 [facility] Comment on above: Expected: 06/29/2024 (Approximate), Expires: 06/29/2025 Start: 05-27-2024 Influenza vaccination Influenza Vacc ine (#1) [facility] Bacteria identified in Urine by Culture Urine culture Microbiology Routine Missed menses Ordered: 06/29/2024 [facility] Comment on above: Ordered: 06/29/2024 Bacteria identified in Urine by Culture Urine culture Microbiology Routine Urinary frequency Ordered: 02/20/2025 [facility] Comment on above: Ordered: 02/20/2025 CBC W Auto Different ial panel - Blood CBC and differential Lab Routine Missed menses , unspecified gestational age Ordered: 06/29/2024 [facility] Comment on above: Ordered: 06/29/2024 CHLAMYDIA TRACHOMATI S (GENITO/STI) CHLAMYDIA TRACHOMATIS (GENITO/STI) Lab Routine STD exposure Ordered: 02/20/2025 [facility] Comment on above: Ordered: 02/20/2025 Cytology Cervical or vaginal smear or scraping study Pap Smear Pathology and Cytology Routine Well woman exam with routine gynecological exam Ordered: 02/20/2025 [facility] Comment on above: Ordered: 02/20/2025 Hemoglobin A1c/Hemoglobin.total in Blood Hemoglobin A1c Lab Routine Missed menses , unspecified gestational age Ordered: 06/29/2024 [facility] Comment on above: Ordered: 06/29/2024 Hepatitis B virus beltran rface Ag [Presence] in Serum or Plasma by Immunoassay Hepatitis B surface antigen Lab Routine Missed menses , unspecified gestational age Ordered: 06/29/2024 [facility] Comment on above: Ordered: 06/29/2024 Hepatitis C virus Ab [Presence] in Serum or Plasma by Immunoassay Hepatitis C antibody Lab Routine Missed menses , unspecified gestational age Ordered: 06/29/2024 [facility] Comment on above: Ordered: 06/29/2024 HIV-1/HIV-2 antigen/antibody combination immunoassay HIV-1 and HIV-2 antibodies Lab Routine Missed menses , unspecified gestational age Ordered: 06/29/2024 [facility] Comment on above: Ordered: 06/29/2024 Neisseria gonorrhoea e DNA [Presence] in Unspecified specimen by INESSA with probe detection Neisseria gonorrhea DNA probe, direct Lab Routine STD exposure Ordered: 02/20/2025 [facility] Comment on above: Ordered: 02/20/2025 Reagin Ab [Presence] in Serum by RPR RPR Lab Routine Missed menses , unspecified gestational age Ordered: 06/29/2024 [facility] Comment on above: Ordered: 06/29/2024 Rubella antibody, IgG Rubella an tibody, IgG Lab Routine Missed menses , unspecified gestational age Ordered: 06/29/2024 [facility] Comment on above: Ordered: 06/29/2024 SURESWAB(R) ADVANCED VAGINITIS PLUS, TMA SURESWAB(R) ADVANCED VAGINITIS PLUS, TMA Pathology and Cytology Routine STD exposure Ordered: 02/20/2025 [facility] Work Phone: Comment on above: Ordered: 02/20/2025 Immunizations Immunization Date Immunization Notes Care Provider Ryne abrams 08-28-2002 influenza virus vacc ine, unspecified formulation Noms Nurse [facility] Payers Date Payer Category Payer Medicaid [employer] [id number] 2023-Present [address] [place] [address] [id number]. [id number] 2023 Medicaid (Managed Care) [facility] [employer] [id number] 2021 Blue Cross Blue Shield 1.2.8 [id number]. [id number] 2021 Unknown BCBS BCBS [id number] [id number] 2021-Present [phone] [address] [place] [address] 1.2.840.341383.1.13.693.2. 7.3.435968.315 2001 Unknown [id number] 2.16.840.1.333654.3.579.2. 593 2001 Unknown [id number] 2.16.840.1.712618.3.579.2. 593 2001 Unknown [id number] 2.16.840.1.955746.3.579.2. 593 2001 Unknown [id number] 2.16.840.1.411532.3.579.2. 593 2001 Unknown [id number] 2.16.840.1.484272.3.579.2. 593 2001 Unknown [id number] 2.16.840.1.927870.3.579.2. 593 2001 Unknown [id number] 2.16.840.1.523986.3.579.2. 593 2001 Unknown [id number] 2.16.840.1.604532.3.579.2. 593 2001 Unknown [id number] 2.16.840.1.741618.3.579.2. 593 2001 Unknown [id number] 2.16.840.1.209570.3.579.2. 593 2001 Unknown [id number] 2.16.840.1.237655.3.579.2. 593 2001 Unknown [id number] 2.16.840.1.585474.3.579.2. 593 2001 Unknown [id number] 2.16.840.1.874673.3.579.2. 593 2001 Unknown [id number] 2.16.840.1.251040.3.579.2. 593 2001 Unknown [id number] 2.16.840.1.482253.3.579.2. 593 2001 Unknown [id number] 2.16.840.1.060004.3.579.2. 593 2001 Unknown [id number] 2.16.840.1.377473.3.579.2. 593 2001 Unknown [id number] 2.16.840.1.241685.3.579.2. 59 2001 Unknown [id number] 2.16.840.1.895922.3.579.2. 593 2001 Unknown [id number] 2.16.840.1.905280.3.579.2. 59 2001 Unknown [id number] 2.16.840.1.907249.3.579.2. 593 2001 Unknown [id number] 2.16840.1.192872.3.579.2. 125 2001 Unknown [id number] 2.16.840.1.867325.3.579.2. 1258 2001 Unknown [id number] 2.16.840.1.583603.3.579.2. 1258 2001 Unknown [id number] 2.16.840.1.706154.3.579.2. 125 2001 Unknown [id number] 2.16.840.1.364344.3.579.2. 125 2001 Unknown [id number] 2.16.840.1.692009.3.579.2. 125 2001 Unknown [id number] 2.16.840.1.554844.3.579.2. 1258 2001 Unknown [id number] 2.16.840.1.216560.3.579.2. 125 2001 Unknown [id number] 2.16.840.1.789854.3.579.2. 1258 2001 Unknown [id number] 2.16.840.1.009261.3.579.2. 1259 2001 Unknown [id number] 2.16.840.1.348052.3.579.2. 1259 1959 Self-pay 1959 Unknown [id number] 1959 Unknown [id number] Unknown [id number] 2.16.840.1.217387.3.579.2. 593 Unknown [id number] 2.16.840.1.230052.3.579.2. 531 Social History Date Type Detail Facility Start: 10-13-2023 End: 06-29-2024 Sex Assigned At [email or web address] Other Start: 2000 Sex Assigned At Female [facility] Start: 10-13-2023 [facility] Start: 06-29-2024 End: 04-30-2025 Alcoholic beverage intake Current drinker of alcohol (finding) [facility] Start: 10-13-2023 End: 06-29-2024 History of Social function [facility] Start: 05-24-2024 [facility] Start: 2001 Sex assigned at Not on file [facility] Tobacco smoking stat [facility] Unknown if ever smoked [facility] Work Phone: Start: 08-11-2024 Sex Female (finding) [facility] Clinical Notes 12-26-2022 to 04-30-2025 TRUE Argueta - 04/30/2025 10:50 AM TRUE Navarro - 04/25/2025 2:50 PM TRUE Navarro - 04/11/2025 3:30 PM Larissa Borja LPN - 03/14/2025 10:50 AM TRUE Navarro - 02/20/2025 3:40 PM EDT Note Date & Type Note Facility 04-30-2025 History of Presen t illness Narrative Reason [...] History of blood transfusion Lead poisoning Miscarriage ([facility]) Nonsmoker Post depression HISTORY PAST MEDICAL HISTORY SOCIAL HISTORY Past Medical History: Diagnosis Date Anemia Gestational diabetes ([facility]) History of blood transfusion 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 -induced hypertension in third trimester ([facility]) O13.3 US biophysical profile w non stress test US OB follow up transabdominal approach labetalol (Normodyne) 300 MG tablet 3. Gestational diabetes mellitus (GDM) in third trimester, gestational diabetes method of control unspecified ([facility]) O24.419 US biophysical profile w non [...] of: TRUE Argueta documented in this encounter [facility] 04-25-2025 History of Presen t illness Narrative [...] Lead poisoning Miscarriage ([facility]) Nonsmoker Post depression HISTORY PAST MEDICAL HISTORY [...] ASSESSMENT & PLAN ICD-10-CM 1. Second trimester ([facility]) Z34.92 2. 27 weeks gestation of ([facility]) Z3A.27 Patient presents for BP check. BP elevated today despite taking 100mg bid labetolol daily. We will increase to 200mg bid daily. Patient given labs and instructed to follow up with OB should she develop headache or vision changes Pt will follow up with DR Rodriguez next week Documented by TRUE Argueta on behalf of: TRUE Argueta documented in this encounter [facility] 04-11-2025 History of Presen t illness Narrative [...] Medical History: Diagnosis Date Anemia Gestational diabetes ([facility]) History of blood transfusion Lead poisoning Miscarriage ([facility]) Nonsmoker Post depression HISTORY PAST MEDICAL HISTORY SOCIAL HISTORY Past Medical History: Diagnosis Date Anemia Gestational diabetes ([facility]) History of blood transfusion Lead poisoning Miscarriage ([facility]) Nonsmoker Post depression /anxiety Social History [...] ASSESSMENT & PLAN ICD-10-CM 1. Second trimester ([facility]) Z34.92 POCT urinalysis dipstick manually resulted 2. 25 weeks gestation of ([facility]) Z3A.25 3. Diabetes mellitus screening Z13.1 CBC [...] of: TRUE Argueta documented in this encounter [facility] 03-14-2025 History of Presen t illness Narrative [...] History of blood transfusion Lead poisoning Miscarriage ([facility]) Nonsmoker Post depression HISTORY PAST MEDICAL [...] nursing note reviewed. Exam conducted with a building certifier present. Vitals: Estimated body mass index is 29.23 kg/m as calculated from the following: Height as of 01/06/23: 5' 3 . Weight as of this encounter: 165 lb. BP: 112/76 Patient's last menstrual period was 10/15/2024 (exact date). ASSESSMENT & PLAN ICD-10-CM 1. Second trimester ([facility]) Z34.92 POCT urinalysis dipstick manually resulted 2. 21 weeks gestation of ([facility]) Z3A.21 Patient presents today for a routine obstetrics appointment. Patient is currently 21w3d with a Estimated Date of Delivery: 07/22/25. Patient has no complaints at this time and will return to clinic in 4 weeks. Documented by Diamond Borja LPN on behalf of: Jose Rodriguez DO documented in this encounter [facility] 02-20-2025 History of Presen t illness Narrative [...] transfusion Lead poisoning Miscarriage Nonsmoker Post depression ([facility]) HISTORY PAST MEDICAL HISTORY SOCIAL HISTORY Past [...] nursing note reviewed. Exam conducted with a building certifier present. Vitals: Estimated body mass index is [...] of: TRUE Argueta documented in this encounter [facility] 01-14-2025 History of Presen t illness Narrative [...] nursing note reviewed. Exam conducted with a building certifier present. Vitals: Estimated body mass index is [...] or undercooked meat, and [facility]. Patient has been consulted regarding any further [...] Jose Rodriguez DO documented in this encounter [facility] 08-20-2024 History of Presen t illness Narrative [...] having a D&C Hysteroscopy performed at [facility] with Dr. Rodriguez. Pathology results was reviewed with the patient in great detail and all restrictions have been lifted. Follow Up: Patient is to return to the office for annual exam unless needed otherwise. Documented by TRUE Argueta on behalf of: TRUE Argueta documented in this encounter [facility] 08-06-2024 History of Presen t illness Narrative [...] nursing note reviewed. Exam conducted with a building certifier present. Vitals: Estimated body mass index is [...] vaginal bleeding. Patient to discuss date with Wire Charger prior to leaving. Patient is able to obtain work note for the week and if longer is needed she will reach out to office. Documented by Diamond Borja LPN on behalf of: Jose Rodriguez DO documented in this encounter [facility] 06-29-2024 History of Presen t illness Narrative [...] or undercooked meat, and stay away from [facility]. Patient has also been advised to not [...] by: Whitney Peacock documented in this encounter [facility] 12-26-2022 Evaluation note Encounter Date Diagnosis Assessment [...] appointment to be seen soon as possible [employer] Other Evaluation noteNo assessment information available [facility] Work Phone: Evaluation note* Diagnosis Missed menses [...] of , antepartum [facility] Diagnosis BP check Screening for hypertension -induced hypertension in third trimester ([facility]) Gestational diabetes mellitus (GDM) in third trimester, gestational diabetes method of control unspecified ([facility]) documented in this encounter [facility] Summary Purpose Family History No Family History Records FoundNo Family History Records FoundNo Family History Records FoundNo Family History Records Found Advance Directives No Advanced Directives Records Found Advance Directive Response Recorded Date/ Time Advance Directives No December 27 23 6:21am Additional Source Comments INFORMATION SOURCE (unrecogn ized section and content) DATE CREATED AUTHOR [facility]/24/2021 [facility] DATE CREATED AUTHOR AUTHOR'S ORGANIZ ATION 12/07/2022 [facility] DATE CREATED AUTHOR AUTHOR'S ORGANIZ ATION 08/15/2024 [facility] DATE CREATED AUTHOR AUTHOR'S ORGANIZ ATION 05/03/2025 [facility] EPIC REASON FOR VISIT (unrecogniz ed section and content) Reason Comments Initial Visit Reason Comments Miscarriage Reason Comments Post-op Visit Reason Comments Routine Visit Reason Comments Blood Pressure Check Care Teams (unrecognized sec tion and content) Team Status: Inactive Member Role Status Dates Jennifer Huston NP-C Attending Provider Active Instrumentation Fitter Relationship Specialty Start Date End Date Vaishali Zapata MD [address] [place] [address] PCP - General Family Medicine 02/04/23 Instrumentation Fitter Relationship Specialty Start Date End Date Vaishali Zapata MD [address] [place] [address] PCP - General Family Medicine 02/04/23 Team Status: Active Member Role Status Dates PHYSICIAN NO FAMILY Primary Care Provider Active Team Status: Inactive Member Role Status Dates PHYSICIAN NO FAMILY Primary Care Provider Active Start: August 10, 2024 End: August 10, 2024 Jose Rodriguez DO Attending Provider Active Start : August 10, 2024 End: August 10, 2024 Instrumentation Fitter Relationship Specialty Start Date End Date Unallocated, Arjun Vo MD [address] [place], [place] [address] [address] PCP - General Family Medicine 08/03/24 Instrumentation Fitter Relationship Specialty Start Date End Date Unallocated, Arjun Vo MD [address] [place] [address] [place] [address] PCP - General Family Medicine 08/03/24 Instrumentation Fitter Relationship Specialty Start Date End Date Unallocated, Arjun Vo MD [facility] [place] [address] PCP - General Family Medicine 08/03/24 Instrumentation Fitter Relationship Specialty Start Date End Date Unallocated, Arjun Vo MD [facility] [address] [facility] [place] [address] PCP - General Family Medicine 08/03/24 Instrumentation Fitter Relationship Specialty Start Date End Date Unallocated, Arjun Vo MD [facility] [place] [address] PCP - General Family Medicine 08/03/24 Instrumentation Fitter Relationship Specialty Start Date End Date Unallocated, Arjun Vo MD [address] [place] [address] PCP - General Family Medicine 08/03/24 Instrumentation Fitter Relationship Specialty Start Date End Date Unallocated, Arjun Vo MD [address] [place] [address] PCP - General Family Medicine 08/03/24 Instrumentation Fitter Relationship Specialty Start Date End Date Unallocated, Arjun Vo MD [address] [place] [address] PCP - General Family Medicine 08/03/24 Instrumentation Fitter Relationship Specialty Start Date End Date Unallocated, Arjun Vo MD [address] [place] [address] PCP - General Family Medicine 08/03/24 Instrumentation Fitter Relationship Specialty Start Date End Date Unallocated, Arjun Vo MD [address] [place] [address] PCP - General Family Medicine 08/03/24 Goals [...] BE BASED ON THE PRIMARY CLINICAL RECORDS. [employer] [facility]. provides no warranty or guarantee of the accuracy or completeness of information in this document.
--- OUTSIDE RECORDS SUMMARY | 2025-05-04 07:08 | XMS_ITS | Encounter Summary ---
Author Organization [facility] Address [address] [place] [address] Care Team Providers Care Paper Cutting Machine Operator Name Role Phone Unallocated, Noms Provider Primary Care Provi krissy Encounter Details Date Type Department Care Team (Late st Contact Info) Description 04/30/2025 Bamboo flowsheet [facility]JUN PANG [address] [place] [address] Rossana Ramos PA [address] [place], [facility] Social History Tobacco Use Types Packs/Day [...] 05/14/2025 2:40 PM EDT Routine [facility] [address] [place] [address] Michael, Jose, [address]ué [place] [address] documented as of this encounter Visit Diagnoses Not on filedocumented in this encounter Care Teams Paper Cutting Machine Operator Relationship Specialty Start Date End Date Unallocated, Noms Provider, [place] [address] PCP - General Family Medicine 08/03/24 documented as of this encounter
--- OUTSIDE RECORDS SUMMARY | 2025-05-04 07:08 | XMS_ITS | Clinical Summary ---
Author Organization [facility] Address [id number] [address] [place] [address] Care Team Providers Care Greenskeeper Name Role Phone Unavailable Primary Care Provider [...] Info) Description 06/04/2025 1:00 PM EDT Appointment [facility] - Ultrasound [address] [place] [address] Jose Rodriguez, DO [address] [facility] [address] [place] [address] Health Maintenance Due Date Last Done Comments Depression Screening 2013 Tobacco Screening 2013 Adult BMI Screening 2019 DTaP,Tdap and Td Vaccines (1 - Tdap) 2020 Pap Smear 2022 Influenza Vaccine 05/27/2025 [employer] Not on file
--- OUTSIDE RECORDS SUMMARY | 2025-05-04 07:08 | XMS_ITS | Encounter Summary ---
Author Organization [facility] Address [address] [place] [address] Care Team Providers Care Research Laboratory Manager Name Role Phone Unallocated, Noms Provider Primary Care Provi krissy Encounter Details Date Type Department Care Team (Late st Contact Info) Description 04/29/2025 Telephone [facility] PANG [address] [place] [address] [place] [id number] Kavitha Almanza MA Social History Tobacco Use [...] as of this encounter Miscellaneous Notes * Telephone Encounter - Kavitha Almanza MA - 04/29/2025 3:53 PM EDT Pt returned call Notified pt of results and recommendations, PVU Order sent to [facility] * Telephone Encounter - Kavitha Almanza MA - 04/29/2025 3:50 PM EDT LMVM or pt to return call to go over glucose results documented in this encounter Plan of Treatment Upcoming Encounters Date Type Department Care Team (Late st Contact Info) Description 05/14/2025 2:40 PM EDT Routine ARJUN TREVIÑOGYN [address] [facility] [place] [address] Jose Rodriguez DO [address] [facility] [address] [place] [address] Scheduled Orders Name Type Priority Associated Diagnoses Orde r Schedule Glucose tolerance, 3 hours Lab Routine Elevated glucose tolerance test Expected: 04/29/2025 (Approximate), Expires: 04/29/2026 documented as of this encounter Visit Diagnoses Diagnosis Elevated glucose tolerance test Impaired glucose tolerance test documented in this encounter Care Teams Research Laboratory Manager Relationship Specialty Start Date End Date Unallocated, Arjun Vo MD [address] [place] [address] PCP - General Family Medicine 08/03/24 documented as of this encounter
--- OUTSIDE RECORDS SUMMARY | 2025-05-04 07:08 | XMS_ITS | Encounter Summary ---
Author Organization [facility] Address [address] [place] [address] Care Team Providers Care Commercial Lines Sales Executive Name Role Phone Unallocated, Noms Provider Primary Care Provi krissy Encounter Details Date Type Department Care Team (Late st Contact Info) Description 04/27/2025 Clinisync Result Encounter [facility] External Department Unsolicited Rossana Ramos PA [address] [place], [facility] Social History Tobacco Use Types Packs/Day [...] PM EDT Routine [facility] [address] [facility] [facility] [phone] Jose Rodriguez DO [address] [place], [facility] documented as of this encounter Procedures Procedure Name Priority Date/Time Associated Diagnosis Comments GLUCOSE 1 HOUR Routine 04/27/2025 10:05 AM EDT ALL CBC WITH AUTO DIFF Routine 04/27/2025 10:05 AM EDT documented in this encounter Results * (ABNORMAL) GLUCOSE 1 HOUR (04/27/2025 10:05 AM EDT) GLUCOSE 1 HOUR 171(H) <130 mg/dL [facility] 04/27/2025 10:0 5 AM EDT 04/27/2025 10:06 AM EDT Narrative [facility] - 04/27/2025 10:45 AM EDT Rossana BISWAS LAB BLOOD ORDERABLES Final Resul t [facility] * (ABNORMAL) ALL CBC WITH AUTO DIFF (04/27/2025 10:05 AM EDT) [facility] WBC 12.5(H) 4.0 - 11.0 10 3/uL TBH TBH RBC 4.29 4.20 - 5.40 10 6/uL TBH TBH HGB 13.6 12.0 - 16.0 g/dL TBH TBH HCT 40.0 36.0 - 48.0 % TBH TBH MCV 93.2 81.0 - 99.0 fL TBH TBH MCH 31.7 26.7 - 34.0 pg TBH TBH MCHC 34.0 29.9 - 35.2 g/dL TBH TBH RDW 12.9 11.0 - 15.0 % TBH TBH PLT 202 150 - 450 10 3/uL TBH TBH MPV 10.6 9.5 - 13.5 fL TBH NEUTROPHILS PERCENT AUTO 82.2(H) 43.0 - 75.0 % TBH LYMPHOCYTES PERCENT AUTO 10.8(L) 20.5 - 60.0 % TBH MONOCYTES PERCENT AUTO 4.3 1.7 - 12.0 % TBH TBH EO % 2.2 0.9 - 7.0 % TBH BASOPHILS PERCENT AUTO 0.2 0.2 - 2.0 % TBH IMMATURE GRANULOCYTES PCT AUTO 0.3 0.0 - 0.5 % TBH NEUTROPHILS ABSOLUTE AUTO 10.2(H) 1.4 - 6.5 10 3/uL TBH LYMPHOCYTES ABSOLUTE AUTO 1.4 1.2 - 3.8 10 3/uL TBH MONOCYTES ABSOLUTE AUTO 0.5 0.3 - 0.8 10 3/uL TBH TBH EO # 0.3 0.0 - 0.7 10 3/uL TBH BASOPHILS ABSOLUTE AUTO 0.0 0.0 - 0.1 10 3/uL TBH IMMATURE GRANULOCYTES ABS AUTO 0.04(H) 0.00 - 0.03 10 3/uL [facility]H 04/27/2025 10:0 5 AM EDT 04/27/2025 10:06 AM EDT Narrative [facility] - 04/27/2025 10:30 AM EDT Rossana BISWAS [facility] Final Result [facility] TB documented in this encounter Visit Diagnoses Not on filedocumented in this encounter Care Teams Commercial Lines Sales Executive Relationship Specialty Start Date End Date Unallocated, Noms Provider, [address] [place] [address] PCP - General Family Medicine 08/03/24 documented as of this encounter
--- OUTSIDE RECORDS SUMMARY | 2025-05-04 07:09 | XMS_ITS | Patient Health Record ---
Author Organization [facility] in [place] Address [address] [place] [address] Care Team Providers Care Accounts Receivable Collector Name Role Phone Jennifer Butts Primary Care Provider [phone] Allergies No Known Allergies Results Component Value Reference Range Notes PREG ([facility]), URINE - IN OFFI CE Reviewed date:07/23/2024 08:22:00 AM Interpretation: Performing Lab: Notes/Report: PREG ([facility]), URINE - IN OFFICE + NEG - NEG Control Present + CBC AUTO DIFF Reviewed date:08/03/2024 08:30:13 AM Interpretation: Performing Lab: Notes/Report: [facility] , White Blood Count 11.1 4.0-11.0 10 [...] Performing Lab: see note ML - [facility] US OB transvaginal Reviewed date:08/03/2024 08:30:13 AM Interpretation: Performing Lab: Notes/Report: Source Facility: [facility]-[address] [place] [address] [place] [address] Ultrasound Report Signed Patient: VIMAL PIZANO MR#: [id number] : 2000 Acct:[id number] Age/Sex: 24 / F ADM Date: 08/02/24 Loc: ER Attending Dr: Ordering Physician: Kishan Motta Date of Service: 08/02/24 Procedure(s): US OB transvaginal Accession Number(s): [id number] cc: JENNIFER BUTTS ; Kishan Motta [place] [address] Patient Name: VIMAL PIZANO MRN: [facility]:[id number] date: 2000 Sex: F Assigned Patient Location: ER Current Patient Location: ER Accession/Order Number: [id number] Exam Date: 08/02/2024 19:17 Report Date: 08/02/2024 [...] without detected heart rate. Electronically authenticated by: VCIKI PASCUAL Date: 08/02/2024 21:24 Dictated By: Vicki Pascual M.D. Signed By: 08/02/242126 DD/ 23 TD/TT: Vice President Of Human Resources: [place] [address] Ultrasound Report Signed Patient: VIMAL PIZANO MR#: [id number] : 2000 Acct:[id number] Age/Sex: 24 / F ADM Date: 08/02/24 Loc: ER Attending Dr: Ordering Physician: Kishan Motta Date of Service: 08/02/24 Procedure(s): US OB transvaginal Accession Number(s): [id number] cc: JENNIFER BUTTS ; Kishan Motta [place] [id number] Patient Name: VIMAL PIZANO MRN: [facility]:[id number] date: 2000 Sex: F Assigned Patient Location: ER Current Patient Location: ER Accession/Order Number: [id number] Exam Date: 19:17 Report Date: 08/02/2024 21:24 [...] M.D. Signed By: 08/02/242126 DD/ 23 TD/TT: Vice President Of Human Resources: RUBELLA AB IGG Reviewed date:01/07/2025 01:05:16 PM Interpretation: Performing Lab: Notes/Report: [facility] , Rubella Antibodies, IgG 1.57 Immune > 0.99 index Performed at: [facility] Immune >0.99 Equivocal 0.90 - 0.[address] [place] [phone] Non-immune <0.90 Percussion Instrument Tuner: Andrew Harris PhD, Phone: [phone] Performing Lab: see note - [facility] LB HIV Ab/p24 Ag with Reflex Reviewed date:01/07/2025 01:05:16 PM Interpretation: Performing Lab: Notes/Report: [facility] , HIV Ab/p24 Ag Screen Non Reactive Non Reactive Performed at: [facility] HIV-1/HIV-2 antibodies and HIV-1 p24 antigen were NOT Percussion Instrument Tuner: Andrew Harris PhD, Phone: [phone] HIV Negative [address] [place] [phone] detected. There is no laboratory evidence of HIV infection. Performing Lab: see note - [facility] LB HCV Antibody RFX to Quant PC R Reviewed date:01/07/2025 01:05:16 PM Interpretation: Performing Lab: Notes/Report: [facility] , HCV Ab Non Reactive Non Reactive Interpretation: Comment . suspected (which may be delayed in an immunocompromised Performed at: [address] [id number] Percussion Instrument Tuner: Andrew Harris PhD, Phone: [phone] individual), or other evidence exists to indicate HCV Not infected with HCV unless early or acute infection is infection. Performing Lab: see note LC - [facility] LB US OB cervical length Reviewed date:03/14/2025 10:39:54 AM Interpretation: Performing Lab: Notes/Report: Source Facility: [place] [address] [place] [address] Ultrasound Report Signed Patient: VIMAL PIZANO MR#: [id number] : 2000 Acct:[id number] Age/Sex: 24 / F ADM Date: 03/08/25 Loc: US Attending Dr: Mackenzie Rodriguez D.O. Ordering Physician: Mackenzie Rodriguez D.O. Date of Service: 03/08/25 Procedure(s): US OB cervical length Accession Number(s): [id number] cc: JENNIFER BUTTS ; Mackenzie Rodriguez D.O. [place] [address] Patient Name: VIMAL PIZANO MRN: [id number] date: 2000 Sex: F Assigned Patient Location: US Current Patient Location: US Accession/Order Number: [id number] Exam Date: 03/08/2025 20:31 Report Date: 03/08/2025 [...] Knapp M.D. 03/08/2025 8:36 PM Dictation Location: [place] [address] Electronically authenticated by: [id number] Y Date: 03/08/2025 20:36 Dictated By: Shivam Knapp D.O. Signed By: 03/08/252037 DD/ 35 TD/TT: Vice President Of Human Resources: [place] [address] Ultrasound Report Signed Patient: VIMAL PIZANO MR#: [id number] : 2000 Acct:[id number] Age/Sex: 24 / F ADM Date: 03/08/25 Loc: US Attending Dr: Mackenzie Rodriguez D.O. Ordering Physician: Mackenzie Rodriguez D.O. Date of Service: 03/08/25 Procedure(s): US OB cervical length Accession Number(s): [id number] cc: JENNIFER BUTTS ; Mackenzie Rodriguez D.O. [place] [id number] Patient Name: VIMAL PIZANO MRN: [id number] date: 2000 Sex: F Assigned Patient Location: US Current Patient Location: US Accession/Order Number: [id number] Exam Date: 03/08/2025 20:31 Report Date: 03/08/2025 [...] Knapp M.D. 03/08/2025 8:36 PM [facility] Electron[facility] authenticated by: [id number] Y Date: 03/08/2025 20:36 Dictated By: Shivam Knapp D.O. Signed By: 03/08/252037 DD/ 35 TD/TT: Vice President Of Human Resources: US OB anatomy Reviewed date:03/14/2025 10:39:54 AM Interpretation: Performing Lab: Notes/Report: Source Facility: [place] [address] Ultrasound Report Signed Patient: VIMAL PIZANO MR#: [id number] : 2000 Acct:[id number] Age/Sex: 24 / F ADM Date: 03/08/25 Loc: US Attending Dr: Mackenzie Rodriguez D.O. Ordering Physician: Mackenzie Rodriguez D.O. Date of Service: 03/08/25 Procedure(s): US OB anatomy Accession Number(s): [id number] cc: JENNIFER BUTTS ; Mackenzie Rodriguez D.O. [place] [address] Patient Name: VIMAL PIZANO MRN: [id number] date: 2000 Sex: F Assigned Patient Location: US Current Patient Location: US Accession/Order Number: [id number] Exam Date: 03/08/2025 20:31 Report Date: 03/08/2025 [...] Knapp M.D. 03/08/2025 8:36 PM Dictation Location: [place] Electronically authenticated by: [id number] Y Date: 03/08/2025 20:36 Dictated By: Shivam Knapp D.O. Signed By: 03/08/252037 DD/ 35 TD/TT: Vice President Of Human Resources: [place] [address] Ultrasound Report Signed Patient: VIMAL PIZANO MR#: [id number] : 2000 Acct:[id number] Age/Sex: 24 / F ADM Date: 03/08/25 Loc: US Attending Dr: Mackenzie Rodriguez D.O. Ordering Physician: Mackenzie Rodriguez D.O. Date of Service: 03/08/25 Procedure(s): US OB anatomy Accession Number(s): [id number] cc: JENNIFER BUTTS ; Mackenzie Rodriguez D.O. [address] [address] Patient Name: VIMAL PIZANO MRN: [id number] date: 2000 Sex: F Assigned Patient Location: US Current Patient Location: US Accession/Order Number: [id number] Exam Date: 03/08/2025 20:31 Report Date: 03/08/2025 [...] Knapp M.D. 03/08/2025 8:36 PM Dictation Location: [place] [address] Electronically authenticated by: [id number] Y Date: 03/08/2025 20:36 Dictated By: Shivam Knapp D.O. Signed By: 03/08/252037 DD/ 35 TD/TT: Vice President Of Human Resources: US OB incomplete anatomy Reviewed date:03/25/2025 09:01:39 AM Interpretation: Performing Lab: Notes/Report: Source Facility: [place] [address] [place] [address] Ultrasound Report Signed Patient: VIMAL PIZANO MR#: [id number] : 2000 Acct:[id number] Age/Sex: 24 / F ADM Date: 03/23/25 Loc: US Attending Dr: Mackenzie Rodriguez D.O. Ordering Physician: Mackenzie Rodriguez D.O. Date of Service: 03/23/25 Procedure(s): US OB incomplete anatomy Accession Number(s): [id number] cc: JENNIFER BUTTS ; Mackenzie Rodriguez D.O. [place] [id number] Patient Name: VIMAL PIZANO MRN: [id number] date: 2000 Sex: F Assigned Patient Location: US Current Patient Location: US Accession/Order Number: [id number] Exam Date: 03/25/2025 08:23 Report Date: 03/25/2025 [...] Brown M.D. 03/25/2025 8:25 AM Dictation Location: [place] [address] Electronically authenticated by: [id number] Y Date: 03/25/2025 08:25 Dictated By: Meghana Brown M.D. Signed By: 03/25/25826 DD/ 4 TD/TT: Vice President Of Human Resources: [place] [address] Ultrasound Report Signed Patient: VIMAL PIZANO MR#: [id number] : 2000 Acct:[id number] Age/Sex: 24 / F ADM Date: 03/23/25 Loc: US Attending Dr: Mackenzie Rodriguez D.O. Ordering Physician: Mackenzie Rodriguez D.O. Date of Service: 03/23/25 Procedure(s): US OB incomplete anatomy Accession Number(s): [id number] cc: JENNIFER BUTTS ; Mackenzie Rodriguez D.O. [place] [id number] Patient Name: VIMAL PIZANO MRN: [id number] date: 2000 Sex: F Assigned Patient Location: Current Patient Location: Accession/Order Number: [id number] Exam Date: 03/25/2025 08:23 Report Date: 03/25/2025 [...] Brown M.D. 03/25/2025 8:25 AM Dictation Location: [place] [address] Electronically authenticated by: [id number] Y Date: 03/25/2025 08:25 Dictated By: Meghana Brown M.D. Signed By: 03/25/25826 DD/ 4 TD/TT: Vice President Of Human Resources: Glucose 1 Hour Reviewed date:04/29/2025 09:37:12 AM Interpretation: Performing Lab: Notes/Report: [facility] , Glucose 1 Hour 171 <130 mg/dL Performing Lab: see note ML - [facility] LB CBC AUTO DIFF Reviewed date:04/29/2025 09:37:12 AM Interpretation: Performing Lab: Notes/Report: [facility] , White Blood Count 12.5 4.0-11.0 10 3/uL Red Blood Count 4.29 4.20-5.40 10 6/uL Hemoglobin 13.6 12.0-16.0 g/dL Hematocrit 40.0 36.0-48.0 % Mean Corpuscular Volume 93.2 81.0-99.0 fL Mean Corpuscular Hemoglobin 31.7 26.7-34.0 pg Mean Corpuscular HGB Conc 34.0 29.9-35.2 g/dL Red Cell Distribution Width 12.9 11.0-15.0 % Platelet Count 202 150-450 10 3/uL Mean Platelet Volume 10.6 9.5-13.5 fL Neutrophils Percent Auto 82.2 43.0-75.0 % Lymphocytes Percent Auto 10.8 20.5-60.0 % Monocytes Percent Auto 4.3 1.7-12.0 % Eosinophils Percent Auto 2.2 0.9-7.0 % Basophils Percent Auto 0.2 0.2-2.0 % Immature Granulocytes Pct Auto 0.3 0.0-0.5 % Neutrophils Absolute Auto 10.2 1.4-6.5 10 3/uL Lymphocytes Absolute Auto 1.4 1.2-3.8 10 3/uL Monocytes Absolute Auto 0.5 0.3-0.8 10 3/uL Eosinophils Absolute Auto 0.3 0.0-0.7 10 3/uL Basophils Absolute Auto 0.0 0.0-0.1 10 3/uL Immature Granulocytes Abs Auto 0.04 0.00-0.03 10 3/uL Performing Lab: see note ML - [facility] LB IGP,Aptima HPV,Age Gdln Reviewed date:02/25/2025 03:13:18 PM Interpretation: Performing Lab: Notes/Report: SPATULA-ALONE ENDOCERVIX [facility] , Age Gdln ACOG Testing Note . Age Algo ACOG Yris... 21-29 01 Clinician Provided Cytology Information Jenise Byrne MD, <-Panic Low,>-Panic High,A-Abnormal,AA-Cri tical Abnormal L-Low Normal,H-High Normal,LL-Alert Low,HH-Alert High TESTS RESULT FLAG UNITS REF RANGE LAB Source.............End ocervix FLAG LEGEND: No. of containers..01 ThinPrep Vial Performed at: [address] [place] [address] 01 =[facility] IGP, rfx Aptima HPV ASCU Note . Percussion Instrument Tuner: Jenise Byrne MD, Phone: [phone] <-Panic Low,>-Panic High,A-Abnormal,AA-Cri tical Abnormal NEGATIVE FOR INTRAEPITHELIAL LESION OR MALIGNANCY. occur. The Pap smear is a screening test designed to aid in the should not be used as the sole means of detecting cervical Performed at: [facility] uterine cervix. It is not a diagnostic procedure and cancer. Both false-positive and false-negative reports do Performed at: =[facility] This liquid based ThinPrep(R) pap test was screened with Satisfactory for evaluation. Endocervical and/or squamous metaplastic L-Low Normal,H-High Normal,LL-Alert Low,HH-Alert High Whitney Alvarez [employer] Panel[employer] (ASCP) Performed at: cells (endocervical component) are present. Note: Note 02 . [address] [facility] [place] [address] [facility] Percussion Instrument Tuner: Jenise Byrne MD, Phone: [phone] [address] [facility], [place] [id number] . 02 Test Methodology: Note 02 TESTS RESULT FLAG UNITS REF RANGE LAB Performed by: 02 The HPV DNA reflex criteria were not met with this specimen Specimen adequacy: 02 FLAG LEGEND: Jenise Byrne MD, DIAGNOSIS: 02 detection of premalignant and malignant conditions of the the use of an image guided system. [address] [facility], [place] [phone] result therefore, no HPV testing was performed. Performing Lab: see note [facility] Box Test Reviewed date:01/07/2025 01:05:16 PM Interpretation: Performing Lab: Notes/Report: [facility] BOX [facility] , BOX Test Sent Out Build[employer] BOX Test Reference Lab [employer] BOX Test Date Sent 01-05-25 Performing Lab: see note [facility] LB Urine Culture, Routine Reviewed date:01/07/2025 01:05:16 PM Interpretation: Performing Lab: Notes/Report: [facility] , Urine Culture, Routine See Below For Report Urine Culture, Routine Urine Culture, Routine Mixed urogenital tami Urine Culture, Routine Urine Culture, Routine 50,000-100,000 co lony forming units per mL Urine Culture, Routine Urine Culture, Routine Performed at: [facility] Urine Culture, Routine Urine Culture, Routine [address] [place], [place] [id number] Urine Culture, Routine Urine Culture, Routine Percussion Instrument Tuner: Riky Harris PhD, Phone: [phone] Urine Culture, Routine Performing Lab: see note SEE REPORT - [employer]er Id information not found for OBX-specific content producer legend [facility] HBsAg Screen Reviewed date:01/07/2025 01:05:16 PM Interpretation: Performing Lab: Notes/Report: [facility] , HBsAg Screen Negative Negative Percussion Instrument Tuner: Andrew Harris PhD, Phone: [phone] Performed at: [facility] [address] [place], [place] [id number] Performing Lab: see note - [facility] Rapid Plasma Reagin, Quant Reviewed date:01/07/2025 01:05:16 PM Interpretation: Performing Lab: Notes/Report: [facility] , Rapid Plasma Reagin, Quant Non Reactive NonRea<1:1 titer treated for syphilis infection. To screen for syphilis Treponema pallidum (Syphilis) Screening [place] (433074) or Percussion Instrument Tuner: Andrew Harris PhD, Phone: [phone] treponema-specific assay should be utilized, such as RPR and Confirmatory Treponema pallidum Antibodies (763338). Please Note: This test does not meet current guidelines for Rapid Plasma Reagin (RPR) Test With Reflex to Quantitative Performed at: [facility] infection, a reflex cascade that includes both RPR and a [address] [place], [place] [id number] intended for following treatment response in patients being screening and diagnosis of syphilis. This test is Performing Lab: see note [facility] LB Type and Screen Reviewed date:01/07/2025 01:05:16 PM Interpretation: Performing Lab: Notes/Report: [facility] , Blood Type A Positive Antibody Screen NEGATIVE GLYCOHEMOGLOBIN A1C Reviewed date:01/07/2025 01:05:16 PM Interpretation: Performing Lab: Notes/Report: [facility] , Glycohemoglobin A1C 5.0 4.5-6.2 % > 7.0 ADA RECOMMENDED LIMIT 4.0 - 6.0 ADA THERAPEUTIC TARGET < 7.0 ACTION SUGGESTED Estimated Average Glucose 97 Performing Lab: see note - [facility] LB DRUG SCREEN RAPID (URINE) Reviewed date:01/07/2025 01:05:16 PM Interpretation: Performing Lab: Notes/Report: [facility] , Cannabinoid Screen Urine NEGATIVE NEGATIVE Phencyclidine Screen Urine NEGATIVE NEGATIVE Cocaine Screen Urine NEGATIVE NEGATIVE Methamphetamines Screen Urine NEGATIVE NEGATIVE Opiate Screen Urine NEGATIVE NEGATIVE Amphetamine Screen Urine NEGATIVE NEGATIVE Benzodiazepines Screen Urine NEGATIVE NEGATIVE Tricyclic Antidepressant Urine NEGATIVE NEGATIVE Methadone Screen Urine NEGATIVE NEGATIVE Barbiturates Screen Urine NEGATIVE NEGATIVE Oxycodone Screen Urine NEGATIVE NEGATIVE Buprenorphine Screen Urine NEGATIVE NEGATIVE FOLLOWS: MTD (Methadone): 200 ng/mL OPI (Opiates): 100 ng/mL AMP (Amphetamine): 500 ng/mL TCA (Trycyclic Antidepressants): 300 ng/mL BUP (Buprenorphine): 10 ng/mL BAR (Barbiturates): 200 ng/mL DRUG CLASS TEST SYSTEM CUT-OFF CONCENTRATIONS ARE OXY (Oxycodone): 100 ng/mL PCP (Phencyclidine): 25 ng/mL mAMP (Methamphetamine): 500 ng/mL BZO (Benzodiazepines): 150 ng/mL THC (Cannabinoids): 50 ng/mL ALEXA (Cocaine): 150 ng/mL Performing Lab: see note ML - [facility] LB CBC AUTO DIFF Reviewed date:01/07/2025 01:05:16 PM Interpretation: Performing Lab: Notes/Report: [facility] , White Blood Count 9.2 4.0-11.0 10 [...] Performing Lab: see note ML - [facility] LB PREG QUANT HCG Reviewed date:11/22/2024 08:59:16 AM Interpretation: Performing Lab: Notes/Report: [facility] , HCG Quantitative 50660 5-50 0.2-1 WEEK 100-5,000 2-3 WEEKS 1,000-50,000 4-5 WEEKS 10,000-100,000 2-3 MONTHS 500-10,000 3-4 WEEKS 15,000-200,000 6-8 WEEKS 10,000-100,000 5-6 WEEKS 50-500 1-2 WEEKS Performing Lab: see note ML - [facility] LB PREG QUANT HCG Reviewed date:11/20/2024 01:38:35 PM Interpretation: Performing Lab: Notes/Report: [facility] , HCG Quantitative 6254 5-50 0.2-1 WEEK 10,000-100,000 2-3 MONTHS 500-10,000 3-4 WEEKS 100-5,000 2-3 WEEKS 15,000-200,000 6-8 WEEKS 10,000-100,000 5-6 WEEKS 50-500 1-2 WEEKS 1,000-50,000 4-5 WEEKS Performing Lab: see note ML - [facility] LB PREG QUANT HCG Reviewed date:08/10/2024 08:58:56 AM Interpretation: Performing Lab: Notes/Report: [facility] , HCG Quantitative 240 50-500 1-2 WEEKS 1,000-50,000 4-5 WEEKS 15,000-200,000 6-8 WEEKS 10,000-100,000 2-3 MONTHS 100-5,000 2-3 WEEKS 500-10,000 3-4 WEEKS 5-50 0.2-1 WEEK 10,000-100,000 5-6 WEEKS Performing Lab: see note ML - [facility] PROF 14(COMP METB) Reviewed date:08/03/2024 08:30:13 AM Interpretation: Performing Lab: Notes/Report: [facility] , Sodium 140 136-145 mmol/L Potassium 3.4 [...] 0.9 Performing Lab: see note ML - [facility] PREG QUANT HCG Reviewed date:08/03/2024 08:30:13 AM Interpretation: Performing Lab: Notes/Report: [facility] , HCG Quantitative 1656 15,000-200,000 6-8 WEEKS 10,000-100,000 2-3 MONTHS 10,000-100,000 5-6 WEEKS 1,000-50,000 4-5 WEEKS 100-5,000 2-3 WEEKS 50-500 1-2 WEEKS 5-50 0.2-1 WEEK 500-10,000 3-4 WEEKS Performing Lab: see note - [facility] LB Box Test Reviewed date:07/23/2024 08:22:00 AM Interpretation: Performing Lab: Notes/Report: [facility] , BOX Test Sent Out [employer] BOX Test Reference Lab [employer] BOX Test Date Sent 07/21/24 Performing Lab: see note ML - [facility] LB Urine Culture, Routine Reviewed date:07/23/2024 08:22:00 AM Interpretation: Performing Lab: Notes/Report: [facility] , Urine Culture, Routine See Below For Report Urine Culture, Routine Urine Culture, Routine Mixed urogenital tami Urine Culture, Routine Urine Culture, Routine 10,000-25,000 col nan forming units per mL Urine Culture, Routine Urine Culture, Routine Performed at: [facility] Urine Culture, Routine Urine Culture, Routine [address] [place], [place] [id number] Urine Culture, Routine Urine Culture, Routine Percussion Instrument Tuner: Riky Harris PhD, Phone: [phone] Urine Culture, Routine Performing Lab: see note SEE REPORT - Electric Razor Assembler Id information not found for OBX-specific content producer legend [facility] LB HBsAg Screen Reviewed date:07/23/2024 08:22:00 AM Interpretation: Performing Lab: Notes/Report: [facility] , HBsAg Screen Negative Negative Percussion Instrument Tuner: Andrew Harris PhD, Phone: [phone] [address] [place], [place] [phone] Performed at: [facility] Performing Lab: see note [facility] LB HCV Antibody RFX to Quant PC R Reviewed date:07/23/2024 08:22:00 AM Interpretation: Performing Lab: Notes/Report: [facility] , HCV Ab Non Reactive Non Reactive Interpretation: Comment . individual), or other evidence exists to indicate HCV infection. suspected (which may be delayed in an immunocompromised Not infected with HCV unless early or acute infection is Performing Lab: see note [facility] Rapid Plasma Reagin, Quant Reviewed date:07/23/2024 08:22:00 AM Interpretation: Performing Lab: Notes/Report: [facility] , Rapid Plasma Reagin, Quant Non Reactive NonRea<1:1 titer treponema-specific assay should be utilized, such as Performed at: [facility] infection, a reflex cascade that includes both RPR and a screening and diagnosis of syphilis. This test is Treponema pallidum (Syphilis) Screening [place] ([address]761) or Percussion Instrument Tuner: Andrew Harris PhD, Phone: [phone] Rapid Plasma Reagin (RPR) Test With Reflex to Quantitative Please Note: This test does not meet current guidelines for (691955). RPR and Confirmatory Treponema pallidum Antibodies [address] [place], [place] [id number] treated for syphilis infection. To screen for syphilis intended for following treatment response in patients being Performing Lab: see note [facility] LB HIV Ab/p24 Ag with Reflex Reviewed date:07/23/2024 08:22:00 AM Interpretation: Performing Lab: Notes/Report: [facility] , HIV Ab/p24 Ag Screen Non Reactive Non Reactive detected. There is no laboratory evidence of HIV infection. Percussion Instrument Tuner: Andrew Harris PhD, Phone: [phone] HIV-1/HIV-2 antibodies and HIV-1 p24 antigen were NOT HIV Negative Performed at: [address] [phone] Performing Lab: see note [facility] LB Type and Screen Reviewed date:07/23/2024 08:22:00 AM Interpretation: Performing Lab: Notes/Report: [facility] , Blood Type A Positive Antibody Screen NEGATIVE RUBELLA AB IGG Reviewed date:07/23/2024 08:22:00 AM Interpretation: Performing Lab: Notes/Report: [facility] , Rubella Antibodies, IgG 1.57 Immune > 0.99 index Non-immune <0.90 Equivocal 0.90 - 0.99 Performed at: [facility] Immune >0.[address] [place] [phone] Percussion Instrument Tuner: Andrew Harris PhD, Phone: [phone] Performing Lab: see note [facility] LB GLYCOHEMOGLOBIN A1C Reviewed date:07/23/2024 08:22:00 AM Interpretation: Performing Lab: Notes/Report: [facility] , Glycohemoglobin A1C 4.9 4.5-6.2 % > 7.0 ACTION SUGGESTED ADA RECOMMENDED LIMIT 4.0 - 6.0 ADA THERAPEUTIC TARGET < 7.0 Estimated Average Glucose 94 Performing Lab: see note - [facility] LB DRUG SCREEN RAPID (URINE) Reviewed date:07/23/2024 08:22:00 AM Interpretation: Performing Lab: Notes/Report: REEFLEX IF POSITIVE [facility] , Cannabinoid Screen Urine NEGATIVE NEGATIVE Phencyclidine Screen Urine NEGATIVE NEGATIVE Cocaine Screen Urine NEGATIVE NEGATIVE Methamphetamines Screen Urine NEGATIVE NEGATIVE Opiate Screen Urine NEGATIVE NEGATIVE Amphetamine Screen Urine NEGATIVE NEGATIVE Benzodiazepines Screen Urine NEGATIVE NEGATIVE Tricyclic Antidepressant Urine NEGATIVE NEGATIVE Methadone Screen Urine NEGATIVE NEGATIVE Barbiturates Screen Urine NEGATIVE NEGATIVE Oxycodone Screen Urine NEGATIVE NEGATIVE Buprenorphine Screen Urine NEGATIVE NEGATIVE MTD (Methadone): 200 ng/mL PCP (Phencyclidine): 25 ng/mL FOLLOWS: ALEXA (Cocaine): 150 ng/mL BUP (Buprenorphine): 10 ng/mL DRUG CLASS TEST SYSTEM CUT-OFF CONCENTRATIONS ARE BAR (Barbiturates): 200 ng/mL TCA (Trycyclic Antidepressants): 300 ng/mL AMP (Amphetamine): 500 ng/mL THC (Cannabinoids): 50 ng/mL OXY (Oxycodone): 100 ng/mL OPI (Opiates): 100 ng/mL BZO (Benzodiazepines): 150 ng/mL mAMP (Methamphetamine): 500 ng/mL Performing Lab: see note ML - [facility] LB CBC AUTO DIFF Reviewed date:07/23/2024 08:22:00 AM Interpretation: Performing Lab: Notes/Report: [facility] , White Blood Count 10.6 4.0-11.0 10 [...] 3/uL Performing Lab: see note ML - [facility] LB PREG QUANT HCG Reviewed date:08/20/2024 11:36:34 AM Interpretation: Performing Lab: Notes/Report: [facility] , HCG Quantitative 6 5-50 0.2-1 WEEK 500-10,000 3-4 WEEKS 15,000-200,000 6-8 WEEKS 10,000-100,000 2-3 MONTHS 1,000-50,000 4-5 WEEKS 50-500 1-2 WEEKS 100-5,000 2-3 WEEKS 10,000-100,000 5-6 WEEKS Performing Lab: see note ML - [facility] US OB transvaginal Reviewed date:08/10/2024 08:58:56 AM Interpretation: Performing Lab: Notes/Report: Source Facility: [place] [address] Ultrasound Report Signed Patient: VIMAL PIZANO MR#: [id number] : 2000 Acct:[id number] Age/Sex: 24 / F ADM Date: 08/10/24 Loc: SURGOUT Attending Dr: Mackenzie Rodriguez D.O. Ordering Physician: Mackenzie Rodriguez D.O. Date of Service: 08/10/24 Procedure(s): US OB transvaginal Accession Number(s): [id number] cc: JENNIFER BUTTS ; Mackenzie Rodriguez D.O. [place] [address] Patient Name: VIMAL PIZANO MRN: [id number] date: 2000 Sex: F Assigned Patient Location: [facility] Current Patient Location: [facility] Accession/Order Number: [id number] Exam Date: 08/10/2024 08:10 Report Date: 08/10/2024 [...] M.D. Signed By: 08/10/24846 DD/ 3 TD/TT: Vice President Of Human Resources: [place] [address] Ultrasound Report Signed Patient: VIMAL PIZANO MR#: [id number] : 2000 Acct:[id number] Age/Sex: 24 / F ADM Date: 08/10/24 Loc: SURGOUT Attending Dr: Mackenzie Rodriguez D.O. Ordering Physician: Mackenzie Rodriguez D.O. Date of Service: 08/10/24 Procedure(s): US OB transvaginal Accession Number(s): [id number] cc: EJNNIFER BUTTS ; Mackenzie Rodriguez D.O. The [place] [id number] Patient Name: VIMAL PIZANO MRN: [id number] date: 2000 Sex: F Assigned Patient Location: [facility] Current Patient Location: [facility] Accession/Order Number: [id number] Exam Date: 08:10 Report Date: 08/10/2024 08:44 [...] Herrera M.D. Signed By: 08/10/2447 DD/ TD/TT: Vice President Of Human Resources: CBC AUTO DIFF Reviewed date:08/10/2024 08:58:56 AM Interpretation: Performing Lab: Notes/Report: [facility] , White Blood Count 8.9 4.0-11.0 10 [...] Performing Lab: see note ML - [facility] Reason For Referral No Information Medications Medication [...] 06/05/2024 Encounters Encounter Location Date Provider Diagnosis [facility] [address] [place] [address] 06/05/2024 Jennifer Butts Z33.1 and Wellness examination [...] ACCESS PPO PLUS LOCAL PLAN [address] [place] [address] [phone] [id number] Vimal Pizano Self - patient is the insured [employer] [place] [employer] [address] [place] [address] [phone] [id number] Vimal Pizano Self - patient is the insured Medical (General) History Medical History History ICD Code lead poisoning Surgical History Surgery Date(Month/Year) ear tubes
--- OUTSIDE RECORDS SUMMARY | 2025-05-04 07:09 | XMS_ITS | Encounter Summary ---
Author Organization [facility] Address [address] [place] [address] Care Team Providers Care Briquetter Operator Name Role Phone Unallocated, Noms Provider Primary Care Provi krissy Encounter Details Date Type Department Care Team (Late st Contact Info) Description 08/10/2024 Abstract ARJUN PANG [facility] [place] [address] Jose Rodriguez DO [address] [place], [place] [address] Social History Tobacco Use Types Packs/Day Years [...] Description 05/14/2025 2:40 PM EDT Routine ARJUN PANG [facility] [place] [address] Jose Rodriguez DO [address] [place], [facility]11 documented as of this encounter Visit Diagnoses Not on filedocumented in this encounter Care Teams Briquetter Operator Relationship Specialty Start Date End Date Unallocated, Noms Provider, [address] [place] [address] PCP - General Family Medicine 08/03/24 documented as of this encounter
--- OUTSIDE RECORDS SUMMARY | 2025-05-04 07:09 | XMS_ITS | Encounter Summary ---
Author Organization [facility] Address [address] [place] [address] Care Team Providers Care Shank Breaker Name Role Phone Viashali Zapata MD Primary Care Provider Bipin cheng Unallocated, Noms Provider Primary Care Provi krissy Encounter Details Date Type Department Care Team (Late st Contact Info) Description 06/29/2024 Abstract ARJUN PANG [address] [place] [address] Jose Rodriguez DO [address], [place] [address] Social History Tobacco Use Types Packs/Day Years [...] Department Care Team (Late Contact Info) Description 05/14/2025 2:40 PM EDT Routine ARJUN PANG [address] [place] [address] Jose Rodriguez DO [address] [place], [facility]11 documented as of this encounter Visit Diagnoses Not on filedocumented in this encounter Care Teams Shank Breaker Relationship Specialty Start Date End Date Vaishali Zapata MD [address] [place] [address] PCP - General Family Medicine 02/04/23 08/02/24 Unallocated, Noms Provider, [address] [place] [address] PCP - General Family Medicine 08/03/24 documented as of this encounter
--- OUTSIDE RECORDS SUMMARY | 2025-05-04 07:09 | XMS_ITS | Encounter Summary ---
Author Organization [facility] Address [address] [place] [address] Care Team Providers Care Fitting Room Operator Name Role Phone Unallocated, Noms Provider Primary Care Provi krissy Encounter Details Date Type Department Care Team (Late Contact Info) Description 03/28/2025 Abstract ARJUN PANG [facility] [place] [address] Jose Rodriguez DO [address] [place], [facility] Social History Tobacco Use Types Packs/Day [...] Info) Description 05/14/2025 2:40 PM EDT Routine NOMMay PANG [address] [place] [address] Jose Rodriguez DO [address] [facility] [address] [place] [address] documented as of this encounter Visit Diagnoses Not on filedocumented in this encounter Care Teams Fitting Room Operator Relationship Specialty Start Date End Date Unallocated, Noms Provider, [place] [address] PCP - General Family Medicine 08/03/24 documented as of this encounter
--- OUTSIDE RECORDS SUMMARY | 2025-05-04 07:09 | XMS_ITS | Encounter Summary ---
Author Organization [facility] Address [address] [place] [address] Care Team Providers Care Instruction Assistant Principal Name Role Phone Vaishali Zapata MD Primary Care Provider Bipin cheng Unallocated, Noms Provider Primary Care Provi krissy Encounter Details Date Type Department Care Team (Late st Contact Info) Description 08/02/2024 Abstract ARJUN PANG [address] [place] [address] Jose Rodriguez DO [address] [place], [place] [address] Social History Tobacco Use Types Packs/Day Years [...] 2:40 PM EDT Routine ARJUN PANG [address] [place] [address] Jose Rodriguez DO [address], [facility]11 documented as of this encounter Visit Diagnoses Not on filedocumented in this encounter Care Teams Instruction Assistant Principal Relationship Specialty Start Date End Date Vaishali Zapata MD [address] [place] [address] PCP - General Family Medicine 02/04/23 08/02/24 Unallocated, Noms Provider, [address] [place] [address] PCP - General Family Medicine 08/03/24 documented as of this encounter
--- OUTSIDE RECORDS SUMMARY | 2025-05-04 07:09 | XMS_ITS | Encounter Summary ---
Author Organization [facility] Address [address] [place] [address] Care Team Providers Care Antisqueak Applier Name Role Phone Unallocated, Noms Provider Primary Care Provi krissy Encounter Details Date Type Department Care Team (Late st Contact Info) Description 03/11/2025 Results Follow-Up [facility] [place] [facility] [address] [place] [address] Glenna Butler LPN [address] [place] [address] Social History Tobacco Use Types [...] Description 05/14/2025 2:40 PM EDT Routine [facility] [place] [facility] [address] [place] [address] Jose Rodriguez DO [address] [place] [address] documented as of this encounter Visit Diagnoses Not on filedocumented in this encounter Care Teams Antisqueak Applier Relationship Specialty Start Date End Date Unallocated, Noms Gilda, [place] [address] PCP - General Family Medicine 08/03/24 documented as of this encounter
--- OUTSIDE RECORDS SUMMARY | 2025-05-04 07:09 | XMS_ITS | Encounter Summary ---
Author Organization [facility] Address [address] [place] [address] Care Team Providers Care Parent Educator Name Role Phone Vaishali Chaidez MD Primary Care Provider Bipin cheng Unallocated, Noms Provider Primary Care Provi krissy Encounter Details Date Type Department Care Team (Late st Contact Info) Description 06/29/2024 Clinisync Result Encounter [facility] External Department Unsolicited Mackenzie Rodriguez, DO [address] [place], [place] [id number] Social History Tobacco Use Types Packs/Day Years [...] PM EDT Routine [facility] [address] [place] [address] Mackenzie Rodriguez DO [address] [place] [address] documented as of this encounter Procedures Procedure Name Priority Date/Time Associated Diagnosis Comments US OB TRANSVAGINAL 06/29/2024 9: 11 AM EDT documented in this encounter Results * US OB TRANSVAGINAL (06/29/2024 9:11 AM EDT) Anatomical Region Laterality Modality Other 06/29/2024 9:11 AM EDT Narrative 06/29/2024 9:14 [place] [address] Ultrasound Report Signed Patient: Vimal Pizano MR#: [id number] : 2000 Acct:[id number] Age/Sex: 24 / F ADM Date: 06/29/24 Loc: [facility]OM[facility] Attending Dr: Mackenzie Rodriguez D.O. Ordering Physician: Mackenzie Rodriguez D.O. Date of Service: 06/29/24 Procedure(s): US OB transvaginal Accession Number(s): [id number] cc: Mackenzie Rodriguez D.O.; VAISHALI CHAIDEZ [place] [address] Patient Name: VMIAL PIZANO MRN: [id number] date: 2000 Sex: F Assigned Patient Location: [facility] Current Patient Location: [facility] Accession/Order Number: [id number] Exam Date: 06/29/2024 08:37 Report Date: 06/29/2024 [...] M.D. Signed By: 06/29/24913 DD/ 0 TD/TT: Asphalt Plant Worker: Procedure Note Radiology, Radiologist, MD - 06/29/2024 [place] [address] Ultrasound Report Signed Patient: Vimal Pizano MMR#: [id number] : 2000Acct:[id number] Age/Sex: 24 / FADM Date: 06/29/24 Loc: [facility] Attending Dr: Mackenzie Rodriguez D.O. Ordering Physician: Mackenzie Rodriguez D.O. Date of Service: 06/29/24 Procedure(s): US OB transvaginal Accession Number(s): [id number] cc: Mackenzie Rodriguez D.O.; VAISHALI CHAIDEZ [place] [address] Patient Name: VIMAL PIZANO MRN: [id number] date: 2000 Sex: F Assigned Patient Location: [facility] Current Patient Location: [facility] Accession/Order Number: [id number] Exam Date: 06/29/2024 08:37 Report Date: 06/29/2024 [...] Herrera M.D. Signed By:06/29/24913 DD/ 0 TD/TT: Asphalt Plant Worker: us Mackenzie Michael DO [facility] Final Result documented in this encounter Visit Diagnoses Not on filedocumented in this encounter Care Teams Parent Educator Relationship Specialty Start Date End Date Vaishali Chaidez MD [address] [place] [address] PCP - General Family Medicine 02/04/23 08/02/24 Unallocated, Noms Provider, [address] [place] [address] PCP - General Family Medicine 08/03/24 documented as of this encounter
--- OUTSIDE RECORDS SUMMARY | 2025-05-04 07:09 | XMS_ITS | Encounter Summary ---
Author Organization [facility] Address [address] [place] [address] Care Team Providers Care Drupal Web Developer Name Role Phone Unallocated, Noms Provider Primary Care Provi krissy Encounter Details Date Type Department Care Team (Late st Contact Info) Description 08/10/2024 Clinisync Result Encounter [facility] External Department Unsolicited Mackenzie Rodriguez DO [address] [place], [facility]11 Social History Tobacco Use Types Packs/Day Years [...] Routine [facility] [address] [place] [address] Mackenzie Rodriguez DO [address] [place] [address] documented as of this encounter Procedures Procedure Name Priority Date/Time Associated Diagnosis Comments US OB TRANSVAGINAL 08/10/2024 8: 44 AM EST documented in this encounter Results * US OB TRANSVAGINAL (08/10/2024 8:44 AM EST) Anatomical Region Laterality Modality Other 08/10/2024 8:44 AM EST Narrative 08/10/2024 8:47 [place] [address] Ultrasound Report Signed Patient: AMBER PIZANO MR#: [id number] : 2000 Acct:[id number] Age/Sex: 24 / F ADM Date: 08/10/24 Loc: SURGOUT Attending Dr: Mackenzie Rodriguez D.O. Ordering Physician: Mackenzie Rodriguez D.O. Date of Service: 08/10/24 Procedure(s): US OB transvaginal Accession Number(s): [id number] cc: LUIS SEE ; Mackenzie Rodriguez D.O. The [place] [id number] Patient Name: AMBER PIZANO MRN: [id number] date: 2000 Sex: F Assigned Patient Location: [facility] Current Patient Location: [facility] Accession/Order Number: [id number] Exam Date: 08/10/2024 08:10 Report Date: 08/10/2024 [...] M.D. Signed By: 08/10/24846 DD/ 3 TD/TT: Glove Operator: Procedure Note Radiology, Radiologist, MD - 08/10/2024 [place] [address] Ultrasound Report Signed Patient: AMBER PIZANO MMR#: [id number] : 2000Acct:[id number] Age/Sex: 24 / FADM Date: 08/10/24 Loc: SURGOUT Attending Dr: Mackenzie Rodriguez D.O. Ordering Physician: Mackenzie Rodriguez D.O. Date of Service: 08/10/24 Procedure(s): US OB transvaginal Accession Number(s): [id number] cc: LUIS SEE ; Mackenzie Rodriguez D.O. The [place] [id number] Patient Name: AMBER PIZANO MRN: [id number] date: 2000 Sex: F Assigned Patient Location: [facility] Current Patient Location: [facility] Accession/Order Number: [id number] Exam Date: 08/10/2024 08:10 Report Date: 08/10/2024 [...] Lavon Herrera M.D. Signed By:08/10/2447 DD/ TD/TT: Glove Operator: us Mackenzie Michael DO [facility] Final Result documented in this encounter Visit Diagnoses Not on filedocumented in this encounter Care Teams Drupal Web Developer Relationship Specialty Start Date End Date Unallocated, Noms Provider, [address] [place] [address] PCP - General Family Medicine 08/03/24 documented as of this encounter
--- OUTSIDE RECORDS SUMMARY | 2025-05-04 07:09 | XMS_ITS | Clinical Summary ---
Author Organization [facility] Address [address] [place] [address] Care Team Providers Care Plumber Apprentice Name Role Phone Unallocated, Noms Provider [...] tablet (200 mg) before bedtime. 60 tablet 04/25/20 26 Active labetalol (Normodyne) 300 MG tabletIndications :-induce d hypertension in third trimester (HHS-HCC) Take 1 tablet (300 mg) by mouth in the morning and 1 tablet (300 mg) in the evening and 1 tablet (300 mg) before bedtime. 90 tablet 04/30/20 26 Active labetalol (Normodyne) 100 MG tabletIndications :Elevated BP without diagnosis of hypertension Take 1 tablet (100 mg) by mouth in the morning and 1 tablet (100 mg) before bedtime. 60 tablet 11 5 04/25/20 25 Discontinu ed(Ineffec tive) Encounters Date Type Department Care Team Description 04/30/2025 10:50 AM [place] [address] Rossana Ramos PA BP check; -induced hypertension in third trimester ([facility]); Gestational diabetes mellitus (GDM) in third trimester, gestational diabetes method of control unspecified ([facility]) 04/30/2025 [place] [address] Rossana Ramos PA 04/29/2025 [place] [address] Kavitha Almanza MA 04/27/2025 Clinisync Result Encounter NOMS External Department Unsolicited Rossana Ramos PA 04/25/2025 2:50 PM [place] [address] Rossana Ramos PA Second trimester ([facility]); 27 weeks gestation of ([facility]); induced hypertension, antepartum ([facility]) 04/25/2025 [place] [address] Rossana Ramos PA 04/11/2025 3:30 PM [place] [address] Rossana Ramos PA Second trimester ([facility]); 25 weeks gestation of ([facility]); Diabetes mellitus screening; Elevated BP without diagnosis of hypertension 04/11/2025 [place] [address] Rossana Ramos PA 03/28/2025 Abstract [facility] [address] [place] [address] Mackenzie Rodriguez, 03/25/2025 Clinisync Result Encounter NOMS External Department Unsolicited Mackenzie Rodriguez, 03/14/2025 10:50 AM EDT Routine [facility] [address] [place] [address] Mackenzie Rodriguez, DO Second trimester ([facility]); 21 weeks gestation of ([facility]) 03/14/2025 Bamboo flowsheet [facility] [address] [place] [address] Mackenzie Rodriguez, 03/11/2025 Results Follow-Up [facility] [address] [place] [address] Glenna Butler LPN 03/11/2025 Telephone [facility] [address] [place] [address] Glenna Butler, MARILU 03/08/2025 Clinisync Result Encounter NOMS External Department Unsolicited Mackenzie Rodriguez, DO 03/08/2025 Clinisync Result Encounter NOMS External Department Unsolicited Mackenzie Rodriguez, DO 03/06/2025 Orders Only [facility] [address] [place] [address] Kavitha Almanza MA 02/20/2025 3:40 PM EDT Routine [facility] [place] [address] Rossana Ramos PA Screening, , for anatomic survey ([facility]); Well woman exam with routine gynecological exam; STD exposure; Second trimester ([facility]); 18 weeks gestation of ([facility]); Urinary frequency 02/20/2025 Clinisync Result Encounter NOMS External Department Unsolicited Rossana Ramos PA 02/20/2025 External Result Encounter NOMS External Department Unsolicited Rossana Ramos PA 02/20/2025 Bamboo flowsheet [facility] [address] [place] [address] Rossana Ramos PA from Last 3 Months [...] (175 lb) 04/30/2025 11:52 AM EDT Height 160 cm (5' 3 ) 01/06/2023 12:00 PM EDT Body Mass Index 31 01/06/2023 12:00 PM EDT Plan of Treatment Upcoming Encounters Date Type Department Care Team (Late st Contact Info) Description 05/14/2025 2:40 PM EDT Routine [facility] [address] [place] [phone] Mackenzie Rodriguez DO [address] [place], [place] [phone] Health Maintenance Due Date Last Done Comments Influenza Vaccine (#1) 2025 08/28/2003, 2002 Procedures Procedure Name Priority Date/Time Associated Diagnosis Comments POCT URINALYSIS DIPSTICK Routine 04/30/2025 11:33 AM EDT BP check GLUCOSE 1 HOUR Routine 04/27/2025 10:05 AM EDT ALL CBC WITH AUTO DIFF Routine 04/27/2025 10:05 AM EDT POCT URINALYSIS DIPSTICK Routine 04/25/2025 3:12 PM EDT Second trimester ([facility]) POCT URINALYSIS DIPSTICK Routine 04/11/2025 3:44 PM EDT Second trimester ([facility]) US OB INCOMPLETE ANATOMY 03/25/2025 8:25 AM EDT POCT URINALYSIS DIPSTICK Routine 03/14/2025 11:39 AM EDT Second trimester ([facility]) US OB CERVICAL LENGTH 03/08/2025 8:36 PM EDT US OB ANATOMY 03/08/2025 8:36 PM EDT RECURRENT VAGINITIS (HTRX) Routine 02/20/2025 4:33 PM EDT URINARY TRACT INFECTION (HTRX) Routine 02/20/2025 4:30 PM EDT POCT URINALYSIS DIPSTICK Routine 02/20/2025 4:18 PM EDT 18 weeks gestation of ([facility]) IGP,APTIMA HPV,AGE GDLN Routine 02/20/2025 3:50 PM EDT PAP SMEAR Routine 02/20/2025 12:00 AM EDT from Last 3 Months Results * (ABNORMAL) POCT urinalysis dipstick manually resulted (04/30/2025 11:33 AM EDT) Only the most recent of5 resultswithin the time period is included. Pathologist [facility] Color, UA Yellow Clarity, UA Clear Glucose, UA Positive Negative - 1999(110) ++++ mg/dL Bilirubin, UA [...] Positive Urine 04/30/2025 11:3 3 AM EDT Mackenzie Rodriguez DO POINT OF CARE TEST ENTER/EDIT OR DERABLES Final Result * (ABNORMAL) GLUCOSE 1 HOUR (04/27/2025 10:05 AM EDT) [facility] GLUCOSE 1 HOUR 171(H) <130 mg/dL TBH 04/27/2025 10:0 5 AM EDT 04/27/2025 10:06 AM EDT Narrative CLINISYNC - 04/27/2025 10:45 AM EDT Rossana BISWAS LAB BLOOD ORDERABLES Final Resul t [facility] * (ABNORMAL) ALL CBC WITH AUTO DIFF (04/27/2025 10:05 AM EDT) [facility] TB WBC 12.5(H) 4.0 - 11.0 10 3/uL TBH TBH RBC 4.29 4.20 - 5.40 10 6/uL TBH TBH HGB 13.6 12.0 - 16.0 g/dL TB TB HCT 40.0 36.0 - 48.0 % TBH TBH MCV 93.2 81.0 - 99.0 fL TBH TB MCH 31.7 26.7 - 34.0 pg TBH [...] Narrative CLINISYNC - 04/27/2025 10:30 AM EDT us Rossana BISWAS CLINISYNC Final Result CLINISYNC [facility] * US OB INCOMPLETE ANATOMY (03/25/2025 8:25 AM EDT) Anatomical Region Laterality Modality Other 03/25/2025 8:25 AM EDT Narrative 03/25/2025 8:27 AM EDT [address] [address] Ultrasound Report Signed Patient: VIMAL FUNES MR#: [id number] : 2000 Acct:[id number] Age/Sex: 24 / F ADM Date: 03/23/25 Loc: US Attending Dr: Mackenzie Rodriguez D.O. Ordering Physician: Mackenzie Rodriguez D.O. Date of Service: 03/23/25 Procedure(s): US OB incomplete anatomy Accession Number(s): [id number] cc: LUIS SEE ; Mackenzie Rodriguez D.O. The [place] [address] Patient Name: VIMAL FUNES MRN: [id number] date: 2000 Sex: F Assigned Patient Location: US Current Patient Location: US Accession/Order Number: [id number] Exam Date: 03/25/2025 08:23 Report Date: 03/25/2025 [...] Brown M.D. 03/25/2025 8:25 AM Dictation Location: [place] [address] Electronically authenticated by: [id number] Y Date: 03/25/2025 08:25 Dictated By: Meghana Brown M.D. Signed By: 03/25/2527 DD/ 4 TD/TT: Certified Composites Technician: Procedure Note Radiology, Radiologist, - 03/25/2025 [place] [address] Ultrasound Report Signed Patient: VIMAL FUNES MMR#: [id number] : 2000Acct:[id number] Age/Sex: 24 / FADM Date: 03/23/25 Loc: US Attending Dr: Mackenzie Rodriguez D.O. Ordering Physician: Mackenzie Rodriguez D.O. Date of Service: 03/23/25 Procedure(s): US OB incomplete anatomy Accession Number(s): [id number] cc: LUIS SEE ; Mackenzie Rodriguez D.O. [place] [address] Patient Name: VIMAL FUNES MRN: [id number] date: 2000 Sex: F Assigned Patient Location: US Current Patient Location: US Accession/Order Number: [id number] Exam Date: 03/25/2025 08:23 Report Date: 03/25/2025 [...] Brown M.D. 03/25/2025 8:25 AM Dictation Location: [place] [address] Electronically authenticated by: [id number] Y Date: 508:25 Dictated By: Meghana Brown M.D. Signed By:03/25/25826 DD/ 4 TD/TT: Certified Composites Technician: us Mackenzie Rodriguez DO CLINISYNC IMAGING Final Result * US OB CERVICAL LENGTH (03/08/2025 8:36 PM EDT) Anatomical Region Laterality Modality Other 03/08/2025 8:36 PM EDT Narrative 03/08/2025 8:38 PM EDT [address] [address] Ultrasound Report Signed Patient: VIMAL FUNES MR#: [id number] : 2000 Acct:[id number] Age/Sex: 24 / F ADM Date: 03/08/25 Loc: US Attending Dr: Mackenzie Rodriguez D.O. Ordering Physician: Mackenzie Rodriguez D.O. Date of Service: 03/08/25 Procedure(s): US OB cervical length Accession Number(s): [id number] cc: LUIS SEE ; Mackenzie Rodriguez D.O. [place] [id number] Patient Name: VIMAL FUNES MRN: [id number] date: 2000 Sex: F Assigned Patient Location: US Current Patient Location: US Accession/Order Number: [id number] Exam Date: 03/08/2025 20:31 Report Date: 03/08/2025 [...] Knapp M.D. 03/08/2025 8:36 PM Dictation Location: [place] [address] Electronically authenticated by: [id number] Y Date: 03/08/2025 20:36 Dictated By: Shivam Knapp D.O. Signed By: 03/08/252037 DD/ 35 TD/TT: Certified Composites Technician: Procedure Note Radiology, Radiologist, MD - 03/08/2025 [place] [address] Ultrasound Report Signed Patient: VIMAL FUNES MMR#: [id number] : 2000Acct:[id number] Age/Sex: 24 FADM Date: 03/08/25 Loc: US Attending Dr: Mackenzie Rodriguez D.O. Ordering Physician: Mackenzie Rodriguez D.O. Date of Service: 03/08/25 Procedure(s): US OB cervical length Accession Number(s): [id number] cc: LUIS SEE ; Mackenzie Rodriguez D.O. [place] [id number] Patient Name: VIMAL FUNES MRN: [id number] date: 2000 Sex: F Assigned Patient Location: Current Patient Location: Accession/Order Number: [id number] Exam Date: 03/08/2025 20:31 Report Date: 03/08/2025 [...] Knapp M.D. 03/08/2025 8:36 PM Dictation [facility] Electronically authenticated by: [id number] Y Date: 0:36 Dictated By: Shivam Knapp D.O. Signed By:03/08/252037 DD/ 35 TD/TT: Certified Composites Technician: us Mackenzie Rodriguez DO CLINISYNC IMAGING Final Result * US OB ANATOMY (03/08/2025 8:36 PM EDT) Anatomical Region Laterality Modality Other 03/08/2025 8:36 PM EDT Narrative 03/08/2025 8:38 [place] [address] Ultrasound Report Signed Patient: VIMAL FUNES MR#: [id number] : 2000 Acct:[id number] Age/Sex: 24 / F ADM Date: 03/08/25 Loc: US Attending Dr: Mackenzie Rodriguez D.O. Ordering Physician: Mackenzie Rodriguez D.O. Date of Service: 03/08/25 Procedure(s): US OB anatomy Accession Number(s): [id number] cc: LUIS SEE ; Mackenzie Rodriguez D.O. [address] [address] Patient Name: VIMAL FUNES MRN: [id number] date: 2000 Sex: F Assigned Patient Location: US Current Patient Location: US Accession/Order Number: [id number] Exam Date: 03/08/2025 20:31 Report Date: 03/08/2025 [...] Knapp M.D. 03/08/2025 8:36 PM Dictation Location: [place] [address] Electronically authenticated by: [id number] Y Date: 03/08/2025 20:36 Dictated By: Shivam Knapp D.O. Signed By: 03/08/252037 DD/ 35 TD/TT: Certified Composites Technician: Procedure Note Radiology, Radiologist, MD - 03/08/2025 [place] [address] Ultrasound Report Signed Patient: VIMAL FUENS MMR#: [id number] : 2000Acct:[id number] Age/Sex: Date: 03/08/25 Loc: US Attending Dr: Mackenzie Rodriguez D.O. Ordering Physician: Mackenzie Rodriguez D.O. Date of Service: 03/08/25 Procedure(s): US OB anatomy Accession Number(s): [id number] cc: LUIS SEE ; Mackenzie Rodriguez D.O. [place] [id number] Patient Name: VIMAL FUNES MRN: [id number] date: 2000 Sex: F Assigned Patient Location: US Current Patient Location: US Accession/Order Number: [id number] Exam Date: 03/08/2025 20:31 Report Date: 03/08/2025 20:36 At the request of: MACKENZEI RODRIGUEZ DO Procedure: US OB anatomy Ultrasound [...] Knapp M.D. 03/08/2025 8:36 PM Dictation Location: [facility] Electronically authenticated by: [id number] Y Date: 0:36 Dictated By: Shivam Knapp D.O. Signed By:03/08/252037 DD/ 35 TD/TT: Certified Composites Technician: Mackenzie Rodriguez DO CLINISYNC IMAGING Final Result * RECURRENT VAGINITIS (HTRX) (02/20/2025 4:33 PM EDT) ATOPOBIUM VAGINAE 0.000 19.961 - 24.689 ppm 02/22/2025 6:32 AM EDT [facility] ATOPOBIUM VAGINAE Not Detected 19.961 - 24.689 ppm 02/22/2025 6:32 AM EDT [facility] BVAB 2,3 (BACTERIAL VAGINOSIS ASSOCIATED BACTERIA 2, 3); MOBILUNCUS SPP 0.000 19.961 - 24.689 ppm 02/22/2025 6:32 AM EDT [facility] BVAB 2,3 (BACTERIAL VAGINOSIS ASSOCIATED BACTERIA 2, 3); MOBILUNCUS SPP Not Detected 19.961 - 24.689 ppm 02/22/2025 6:32 AM EDT [facility] SIMEON ALBICANS, PARAPSILOSIS, TROPICALIS 0.000 19.961 - 30.770 ppm 02/22/2025 6:32 AM EDT [facility] SIMEON ALBICANS, PARAPSILOSIS, TROPICALIS Not Detected 19.961 - 30.770 ppm 02/22/2025 6:32 AM EDT [facility] SIMEON GLABRATA 0.000 23.000 - 32.138 ppm 02/22/2025 6:32 AM EDT [facility] SIMEON GLABRATA Not Detected 23.000 - 32.138 ppm 02/22/2025 6:32 AM EDT [facility] SIMEON KRUSEI 0.000 23.000 - 32.271 ppm 02/22/2025 6:32 AM EDT [facility] SIMEON KRUSEI Not Detected 23.000 - 32.271 ppm 02/22/2025 6:32 AM EDT [facility] CHLAMYDIA TRACHOMATIS 0.000 23.000 - 31.467 ppm 02/22/2025 6:32 AM EDT [facility] CHLAMYDIA TRACHOMATIS Not Detected 23.000 - 31.467 ppm 02/22/2025 6:32 AM EDT [facility] GARDNERELLA VAGINALIS 0.000 19.961 - 24.689 ppm 02/22/2025 6:32 AM EDT [facility] GARDNERELLA VAGINALIS Not Detected 19.961 - 24.689 ppm 02/22/2025 6:32 AM EDT [facility] MEGASPHAERA (TYPES 1, 2) 0.000 19.961 - 24.689 ppm 02/22/2025 6:32 AM EDT [facility] MEGASPHAERA (TYPES 1, 2) Not Detected 19.961 - 24.689 ppm 02/22/2025 6:32 AM EDT [facility] NEISSERIA GONORRHOEAE 0.000 23.000 - 32.117 ppm 02/22/2025 6:32 AM EDT [facility] NEISSERIA GONORRHOEAE Not Detected 23.000 - 32.117 ppm 02/22/2025 6:32 AM EDT [facility] TRICHOMONAS VAGINALIS 0.000 23.000 - 32.119 ppm 02/22/2025 6:32 AM EDT [facility] TRICHOMONAS VAGINALIS Not Detected 23.000 - 32.119 ppm 02/22/2025 6:32 AM EDT [facility] MYCOPLASMA GENITALIUM 0.000 19.961 - 24.689 ppm 02/22/2025 6:32 AM EDT [facility] MYCOPLASMA GENITALIUM Not Detected 19.961 - 24.689 ppm 02/22/2025 6:32 AM EDT [facility] Tissue 02/20/2025 4:33 PM EDT 02/22/2025 1:53 AM EDT us Rossana BISWAS LAB BLOOD ORDERABLES Final Resul t [facility] [address] [place] [address] * URINARY TRACT INFECTION (HTRX) (02/20/2025 4:30 PM EDT) [facility] ACINETOBACTER BAUMANII 0.000 19.961 - 24.689 ppm 02/22/2025 6:52 AM EDT [facility] ACINETOBACTER BAUMANII Not Detected 19.961 - 24.689 ppm 02/22/2025 6:52 AM EDT [facility] CITROBACTER FREUNDII 0.000 23.000 - 31.881 ppm 02/22/2025 6:52 AM EDT [facility] CITROBACTER FREUNDII Not Detected 23.000 - 31.881 ppm 02/22/2025 6:52 AM EDT [facility] ENTEROBACTER AEROGENES, CLOACAE 0.000 23.000 - 31.535 ppm 02/22/2025 6:52 AM EDT [facility] ENTEROBACTER AEROGENES, CLOACAE Not Detected 23.000 - 31.535 ppm 02/22/2025 6:52 AM EDT [facility] ENTEROCOCCUS FAECALIS, FAECIUM 0.000 26.000 - 31.575 ppm 02/22/2025 6:52 AM EDT [facility] ENTEROCOCCUS FAECALIS, FAECIUM Not Detected 26.000 - 31.575 ppm 02/22/2025 6:52 AM EDT [facility] ESCHERICHIA COLI 0.000 23.000 - 28.500 ppm 02/22/2025 6:52 AM EDT [facility] ESCHERICHIA COLI Not Detected 23.000 - 28.500 ppm 02/22/2025 6:52 AM EDT [facility] KLEBSIELLA PNEUMONIAE, OXYTOCA 0.000 23.000 - 30.500 ppm 02/22/2025 6:52 AM EDT [facility] KLEBSIELLA PNEUMONIAE, OXYTOCA Not Detected 23.000 - 30.500 ppm 02/22/2025 6:52 AM EDT [facility] MORGANELLA MORGANII 0.000 19.961 - 24.689 ppm 02/22/2025 6:52 AM EDT [facility] MORGANELLA MORGANII Not Detected 19.961 - 24.689 ppm 02/22/2025 6:52 AM EDT [facility] PROTEUS MIRABILIS, VULGARIS 0.000 23.000 - 28.500 ppm 02/22/2025 6:52 AM EDT [facility] PROTEUS MIRABILIS, VULGARIS Not Detected 23.000 - 28.500 ppm 02/22/2025 6:52 AM EDT [facility] PSEUDOMONAS AERUGINOSA 0.000 23.000 - 28.500 ppm 02/22/2025 6:52 AM EDT [facility] PSEUDOMONAS AERUGINOSA Not Detected 23.000 - 28.500 ppm 02/22/2025 6:52 AM EDT [facility] STAPHYLOCOCCUS AUREUS 0.000 26.000 - 30.902 ppm 02/22/2025 6:52 AM EDT [facility] STAPHYLOCOCCUS AUREUS Not Detected 26.000 - 30.902 ppm 02/22/2025 6:52 AM EDT [facility] STREPTOCOCCUS AGALACTIAE (GROUP B STREP) 0.000 26.000 - 32.222 ppm 02/22/2025 6:52 AM EDT [facility] STREPTOCOCCUS AGALACTIAE (GROUP B STREP) Not Detected 26.000 - 32.222 ppm 02/22/2025 6:52 AM EDT [facility] SIMEON ALBICANS, PARAPSILOSIS, TROPICALIS 0.000 19.961 - 30.770 ppm 02/22/2025 6:52 AM EDT [facility] SIMEON ALBICANS, PARAPSILOSIS, TROPICALIS Not Detected 19.961 - 30.770 ppm 02/22/2025 6:52 AM EDT [facility] SIMEON GLABRATA 0.000 23.000 - 32.138 ppm 02/22/2025 6:52 AM EDT [facility] SIMEON GLABRATA Not Detected 23.000 - 32.138 ppm 02/22/2025 6:52 AM EDT [facility] SIMEON KRUSEI 0.000 23.000 - 32.271 ppm 02/22/2025 6:52 AM EDT [facility] SIMEON KRUSEI Not Detected 23.000 - 32.271 ppm 02/22/2025 6:52 AM EDT [facility] SERRATIA MARCESCENS 0.000 23.000 - 31.204 ppm 02/22/2025 6:52 AM EDT [facility] SERRATIA MARCESCENS Not Detected 23.000 - 31.204 ppm 02/22/2025 6:52 AM EDT [facility] STREPTOCOCCUS PYOGENES (GROUP A STREP) 0.000 19.961 - 24.689 ppm 02/22/2025 6:52 AM EDT [facility] STREPTOCOCCUS PYOGENES (GROUP A STREP) Not Detected 19.961 - 24.689 ppm 02/22/2025 6:52 AM EDT [facility] STAPHYLOCOCCUS EPIDERMIDIS, HAEMOLYTICUS, LUGDUNENSIS, SAPROPHYTICUS (URINA 0.000 19.961 - 24.689 ppm 02/22/2025 6:52 AM EDT [facility] STAPHYLOCOCCUS EPIDERMIDIS, HAEMOLYTICUS, LUGDUNENSIS, SAPROPHYTICUS (URINA Not Detected 19.961 - 24.689 ppm 02/22/2025 6:52 AM EDT [facility] STAPHYLOCOCCUS EPIDERMIDIS, HAEMOLYTICUS, LUGDUNENSIS, SAPROPHYTICUS (URINA 0.000 19.961 - 24.689 ppm 02/22/2025 6:52 AM EDT [facility] STAPHYLOCOCCUS EPIDERMIDIS, HAEMOLYTICUS, LUGDUNENSIS, SAPROPHYTICUS (URINA Not Detected 19.961 - 24.689 ppm 02/22/2025 6:52 AM EDT [facility] Urine 02/20/2025 4:30 PM EDT 02/22/2025 1:52 AM EDT us Rossana BISWAS LAB BLOOD ORDERABLES Final Resul t [facility] [address] [place] [address] * IGP,APTIMA HPV,AGE GDLN (02/20/2025 3:50 PM EDT) AGE GDLN ACOG TESTING Note . TB Comment: TESTS RESULT FLAG UNITS REF RANGE LAB Clinician Provided Cytology Information Source.............Endocervix No. of containers..01 ThinPrep Vial Age Ramirez Arndt... FLAG LEGEND: L-Low Normal,H-High Normal,LL-Alert Low,HH-Alert High <-Panic Low,>-Panic High,A-Abnormal,AA-Critical Abnormal Performed at: 01 [facility] [address] [place] [address] Jenise Byrne MD, IGP, RFX APTIMA HPV ASCU Note . [facility] Comment: TESTS RESULT FLAG UNITS REF RANGE LAB DIAGNOSIS: 02 NEGATIVE FOR INTRAEPITHELIAL LESION OR MALIGNANCY. Specimen adequacy: 02 Satisfactory for evaluation. Endocervical and/or squamous metaplastic cells (endocervical component) are present. Performed by: Hussein Alvarez, Graduate Teaching Assistant ([facility]) . 02 Note: Note 02 The Pap [...] <-Panic Low,>-Panic High,A-Abnormal,AA-Critical Abnormal Performed at: [address] [address] Jenise Byrne MD, Performed at: = - Lab[address] [id number] Visiting Nurse: Jenise Byrne MD, Phone: [phone] Performed at: [address] [id number] Visiting Nurse: Jenise Byrne MD, Phone: [phone] 02/20/2025 3:50 PM EDT 02/20/2025 9:13 PM EDT Narrative CLINISYNC - 02/23/2025 1:08 PM EDT [facility] Rossana BISWAS LAB BLOOD ORDERABLES Final Resul t Performing Organization Address [facility]/State/ZIP Co de Phone Number CLINISYNC TB * Pap Smear (02/20/2025 12:00 AM EDT) Swab Cervical swab / Unknown Rossana BISWAS LAB CYTOLOGY ORDERABLES Final Re sult Performing Organization Address City/[facility]/ZIP Co de Phone Number EXTERNAL LAB from Last 3 Months Insurance BS [employer] Care Teams Plumber Apprentice Relationship Specialty Start Date End Date Unallocated, Noms Provider, [address] [place] [address] PCP - General Family Medicine 08/03/24
--- OUTSIDE RECORDS SUMMARY | 2025-05-04 07:09 | XMS_ITS | Encounter Summary ---
Author Organization [facility] Address [address] [place] [address] Care Team Providers Care Language Specialist Name Role Phone Unallocated, Noms Provider Primary Care Provi krissy Encounter Details Date Type Department Care Team (Late st Contact Info) Description 08/10/2024 Abstract ARJUN PANG [facility] [place] [address] Jose Rodriguez DO [address] [place], [place] [address] Social History Tobacco Use Types Packs/Day Years [...] 05/14/2025 2:40 PM EDT Routine ARJUN PANG [facility] [place] [address] Jose Rodriguez DO [address] [place], [facility] documented as of this encounter Visit Diagnoses Not on filedocumented in this encounter Care Teams Language Specialist Relationship Specialty Start Date End Date Unallocated, Noms Provider, [address] [place] [address] PCP - General Family Medicine 08/03/24 documented as of this encounter
--- OUTSIDE RECORDS SUMMARY | 2025-05-04 07:09 | XMS_ITS | Encounter Summary ---
Author Organization [facility] Address [address] [place] [address] Care Team Providers Care Electrotype Caster Name Role Phone Unallocated, Noms Provider Primary Care Provi krissy Encounter Details Date Type Department Care Team (Late Contact Info) Description 04/25/2025 Bamboo flowsheet ARJUN PANG [address] [facility] [place] [address] Rossana Ramos PA [address] [place], [facility]11 Social History Tobacco Use Types Packs/Day [...] PM EDT Routine [facility] PANG [address] [facility] [place] [address] Michael, Jose, [address] [place] [place] [address] documented as of this encounter Visit Diagnoses Not on filedocumented in this encounter Care Teams Electrotype Caster Relationship Specialty Start Date End Date Unallocated, Noms Provider, [place] [address] PCP - General Family Medicine 08/03/24 documented as of this encounter
--- OUTSIDE RECORDS SUMMARY | 2025-05-04 07:09 | XMS_ITS | Encounter Summary ---
Author Organization [facility] Address [address] [place] [address] Care Team Providers Care Weathercaster Name Role Phone Unallocated, Noms Provider Primary Care Provi krissy Encounter Details Date Type Department Care Team (Late st Contact Info) Description 03/06/2025 Orders Only ARJUN PANG [address] [place] [address] Kavitha Almanza MA Social History Tobacco [...] 2:40 PM EDT Routine NOMMay PANG [address] [place] [address] Jose Rodriguez DO [address], [facility]11 documented as of this encounter Procedures Procedure Name Priority Date/Time Associated Diagnosis Comments PAP SMEAR Routine 02/20/2025 12:00 AM EDT documented in this encounter Results * Pap Smear (02/20/2025 12:00 AM EDT) Swab Cervical swab / Unknown us Rossana [facility] CYTOLOGY ORDERABLES Final Re sult EXTERNAL LAB documented in this encounter Visit Diagnoses Not on filedocumented in this encounter Care Teams Weathercaster Relationship Specialty Start Date End Date Unallocated, Noms Provider, [address] [place] [address] PCP - General Family Medicine 08/03/24 documented as of this encounter
--- OUTSIDE RECORDS SUMMARY | 2025-05-04 07:09 | XMS_ITS | Encounter Summary ---
Author Organization [facility] Address [address] [place] [address] Care Team Providers Care Marketing Instructor Name Role Phone Unallocated, Noms Provider Primary Care Provi krissy Encounter Details Date Type Department Care Team (Late st Contact Info) Description 08/10/2024 Abstract ARJUN PANG [place] [address] Jose Rodriguez DO [address], [place] [address] Social History Tobacco Use Types Packs/Day Years [...] 05/14/2025 2:40 PM EDT Routine ARJUN PANG [place] [address] Jose Rodriguez DO [address], [facility]11 documented as of this encounter Visit Diagnoses Not on filedocumented in this encounter Care Teams Marketing Instructor Relationship Specialty Start Date End Date Unallocated, Noms Provider, [address] [place] [address] PCP - General Family Medicine 08/03/24 documented as of this encounter
--- OUTSIDE RECORDS SUMMARY | 2025-05-04 07:09 | XMS_ITS | Encounter Summary ---
Author Organization [facility] Address [address] [place] [address] Care Team Providers Care Medical Director Of Hospice Name Role Phone Vaishali Zapata MD Primary Care Provider Bipin cheng Unallocated, Noms Provider Primary Care Provi krissy Encounter Details Date Type Department Care Team (Late st Contact Info) Description 06/28/2024 Abstract ARJUN PANG [address] [place] [address] Jose Rodriguez DO [address], [place] [address] Social History Tobacco Use Types Packs/Day Years [...] 2:40 PM EDT Routine ARJUN PANG [address] [place] [address] Jose Rodriguez DO [address], [facility]11 documented as of this encounter Visit Diagnoses Not on filedocumented in this encounter Care Teams Medical Director Of Hospice Relationship Specialty Start Date End Date Vaishali Zapaat MD [address] [place] [address] PCP - General Family Medicine 02/04/23 08/02/24 Unallocated, Noms Provider, [address] [place] [address] PCP - General Family Medicine 08/03/24 documented as of this encounter
[2025-05-04 07:42] LABS: Hematocrit 39.5 % (36.0-48.0); Hemoglobin 13.7 g/dL (12.0-16.0); Immature Granulocytes Abs Auto 0.05 10^3/uL (0.00-0.03); Immature Granulocytes Pct Auto 0.4 % (0.0-0.5); Lymphocytes Absolute Auto 1.6 10^3/uL (1.2-3.8); Mean Corpuscular HGB Conc 34.7 g/dL (29.9-35.2); Mean Corpuscular Hemoglobin 31.9 pg (26.7-34.0); Mean Corpuscular Volume 92.1 fL (81.0-99.0); Platelet Count 226 10^3/uL (150-450); Red Blood Count 4.29 10^6/uL (4.20-5.40); White Blood Count 12.5 10^3/uL (4.0-11.0)
[2025-05-04 08:03] LABS: INR 0.95; Partial Thromboplastin Time 25.7 sec (22.3-36.2); Prothrombin Time 10.1 sec (9.0-11.6)
[2025-05-04 08:04] LABS: Aspartate Amino Transferase 23 U/L (15-37); Blood Urea Nitrogen 8.0 mg/dL (7.0-18.0); Estimated GFR (African America >60 (>=60 mL/min/1.73m^2); Estimated GFR (Non-African Ame >60 (>=60 mL/min/1.73m^2); Uric Acid 3.7 mg/dL (2.6-6.0)
[2025-05-04 08:40] LABS: Glucose 1 Hour 234 mg/dL (<180)
[2025-05-04 10:05] LABS: Glucose 2 Hour 186 mg/dL (<155)
[2025-05-04 10:46] LABS: Glucose 3 Hour 133 mg/dL (<140)
--- NOTE | 2025-05-04 10:55 | US_ITS ---
[place] [id number] Patient Name: VIMAL PIZANO MRN: [id number] date: 2000 Sex: F Assigned Patient Location: [facility] Current Patient Location: [facility] Accession/Order Number: [id number] Exam Date: 05/04/2025 12:08 Report Date: 05/04/2025 12:09 At the request of: COLLIN LEACH Procedure: US OB BPP w non-stress Biophysical profile. Reason for exam: Gestational diabetes COMPARISON: None TECHNIQUE: Transabdominal imaging of the gravid uterus was obtained. FINDINGS: The artificial limb maker reports a BPP of 8 out of 8. DANYA is normal at 12.4 cm. heart rate 150 bpm. US/US OB BPP w non-stress IMPRESSION: BPP 8 out of 8. Impression dictated by: Bulmaro Arias Jr., D.O. 05/04/2025 12:09 PM Dictation Location: Backplane Electronically authenticated by: [id number] Y Date: 05/04/2025 12:09
[2025-05-04 11:51] VITALS: TEMP 37
[2025-05-04 11:53] VITALS: BP 133/72; PULSE 76
== END 2025-05-04 12:33 | disposition home or self-care (01) ==
LOC: LAB 07:06 → FBC 10:51
PROVIDERS: PCP Nurse Practitioner Family; Visit Provider Physician Assistant
DX: O24.419 Gestational diabetes mellitus in pregnancy, unspecified control (principal); O13.3 Gestational [pregnancy-induced] hypertension without significant proteinuria, third trimester; Z3A.26 26 weeks gestation of pregnancy
CPT/HCPCS: 36415; 76816; 76818; 82565; 82951; 82952; 83615; 84450; 84520; 84550; 85025; 85610; 85730

== ENCOUNTER 2025-05-06 07:00 | Outpatient (REF) | payer BC, OTHER, SELFPAY ==
[2025-05-06 17:49] LABS: Total Protein Urine Random <6.0 mg/dL (<=11.9)
[2025-05-06 17:50] LABS: Total Volume 24 Hour Urine 3700 mL/24hr
== END 2025-05-06 07:01 | disposition home or self-care (01) ==
LOC: LAB 07:00
PROVIDERS: PCP Nurse Practitioner Family; Visit Provider Physician Assistant
DX: O13.9 Gestational [pregnancy-induced] hypertension without significant proteinuria, unspecified trimester (principal)
CPT/HCPCS: 84156

== ENCOUNTER 2025-05-08 16:58 | Outpatient (OUT) | payer BC, OTHER, SELFPAY ==
--- OUTSIDE RECORDS SUMMARY | 2024-06-05 04:30 | XMS_ITS ---
Author Organization [facility] [place] Address [address] [place] [address] Care Team Providers Care Retail Asset Protection Specialist Name Role Phone Jennifer Butts Primary Care [...] Encounter Location Date Provider Diagnosis [facility] [address] [place] [address] 06/05/2024 Jennifer Butts Z33.1 and Wellness examination [...] Amber PIZANO MDOB: [birth year] (24 yo F)Acc No.[id number]:06/05/2024 New Patient Patient: Amber MADERA Provider: Lashawn Butts ([facility]), LOTUS NOTES ADMINISTRATOR :2000 A ge:24 Y S ex:Female Date:06/05/2024 Address:[address] [place] [address] Check In:08:08 AM ESTCheck O ut:08:44 AM [...] Job and Family Services , front desk person, Child services here to get established Sweetie, [...] (Check Out) true * Provider: Lashawn Butts ([facility]), LOTUS NOTES ADMINISTRATOR Date: 0 06/05/2024 Generated for Yolisi ng/Famariig/eTransmitting on: 0 05/08/2025 05:01 PM EDT History and Physical Notes * HPI (History of Present Illness) Category Sub-Category Detail Notes Category Not es General OBGYN Michael , have 2 year old Job and Family Services , front desk person, Child services here to get established Sweetie, [...]
--- OUTSIDE RECORDS SUMMARY | 2025-04-25 14:50 | XMS_ITS | Encounter Summary ---
Author Organization [facility] Address [address] [place] [address] Care Team Providers Care Route Sales Person Name Role Phone Unallocated, Noms Provider Primary Care Provi krissy Reason for Visit * Reason Comments Routine Visit Encounter Details Date Type Department Care Team (Late st Contact Info) Description 04/25/2025 2:50 PM EDT Office Visit ARJUN PANG [address] [facility] [place] [address] Rossana Ramos PA [address] [facility] [address] [place], [facility]11 Second trimester ([facility] 27 weeks gestation of ([facility]); induced hypertension, antepartum ([facility]) Social History Tobacco Use Types Packs/Day Years [...] History of blood transfusion Lead poisoning Miscarriage ([facility]) Nonsmoker Post depression HISTORY PAST MEDICAL HISTORY [...] ASSESSMENT & PLAN ICD-10-CM 1. Second trimester ([facility]) Z34.92 2. 27 weeks gestation of ([facility]) Z3A.27 Patient presents for BP check. BP [...] PM EDT Routine [facility] [address] [facility] [address] Jose Rodriguez DO [address] [facility] [address] [place] [place] [address] Scheduled Orders Name Type Priority Associated Diagnoses [...] this encounter Visit Diagnoses Diagnosis Second trimester ([facility]) state, incidental 27 weeks gestation of ([facility]) induced hypertension, antepartum ([facility]) Transient hypertension of , antepartum documented in this encounter Care Teams Route Sales Person Relationship Specialty Start Date End Date Unallocated, Noms Provider, [address] [place] [address] PCP - General Family Medicine 08/03/24 documented as of this encounter
--- OUTSIDE RECORDS SUMMARY | 2025-04-30 10:50 | XMS_ITS | Encounter Summary ---
Author Organization [facility] Address [address] [place] [address] Care Team Providers Care Software Applications Developer Name Role Phone Unallocated, Noms Provider Primary Care Provi krissy Reason for Visit * Reason Comments Blood Pressure Check Encounter Details Date Type Department Care Team (Latest Contact Info) Description 04/30/2025 10:50 AM EDT Routine ARJUN [place]ataya OBGYKeegan [address] [facility] [address] [place] [address] Rossana Ramos PA [address] [facility] [address] [place], [facility]11 BP check; -induced hypertension in third trimester ([facility]); Gestational diabetes mellitus (GDM) in third trimester, [...] History of blood transfusion Lead poisoning Miscarriage ([facility]) Nonsmoker Post depression HISTORY PAST MEDICAL HISTORY SOCIAL HISTORY Past Medical History: Diagnosis Date Anemia Gestational diabetes ([facility]) History of blood transfusion Lead poisoning Miscarriage ([facility]) Nonsmoker Post depression /anxiety Social [...] resulted 2. -induced hypertension in third trimester ([facility]) O13.3 US biophysical profile wnon stress test US OB follow up transabdominal approach labetalol (Normodyne) 300 MG tablet 3. Gestational diabetes mellitus (GDM) in third trimester, gestational diabetes method of control unspecified ([facility]) O24.419 US biophysical profile w [...] PM EDT Routine [facility] [address] [place] [phone] MichaelJose barrios, [address] [facility] [address] [place] [place] [address] Scheduled Orders Name Type Priority Associated Diagnoses [...] for hypertension -induced hypertension in third trimester ([facility]) Gestational diabetes mellitus (GDM) in third trimester, gestational diabetes method of control unspecified ([facility]) documented in this encounter Care Teams Software Applications Developer Relationship Specialty Start Date End Date Unallocated, Noms Provider, [address] [place] [address] PCP - General Family Medicine 08/03/24 documented as of this encounter
--- OUTSIDE RECORDS SUMMARY | 2025-05-08 17:01 | XMS_ITS | Clinical Summary ---
Author Organization [facility] Address [id number] [address] [place] [address] Care Team Providers Care Help Desk Assistant Name Role Phone Unavailable Primary Care Provider [...] Info) Description 06/04/2025 1:00 PM EDT Appointment [facility] - Ultrasound [address] [place] [address] Jose Rodriguez, DO [address] [facility] [address]ué [place] [address] Health Maintenance Due Date Last Done Comments Depression Screening 2013 Tobacco Screening 2013 Adult BMI Screening 2019 DTaP,Tdap and Td Vaccines (1 - Tdap) 2020 Pap Smear 2022 Influenza Vaccine 05/27/2025 Medical Devices Not on file
--- OUTSIDE RECORDS SUMMARY | 2025-05-08 17:01 | XMS_ITS | Encounter Summary ---
Author Organization [facility] Address [address] [place] [address] Care Team Providers Care Slot Operations Manager Name Role Phone Unallocated, Noms Provider Primary Care Provi krissy Encounter Details Date Type Department Care Team (Late st Contact Info) Description 08/10/2024 Clinisync Result Encounter NOMS External Department Unsolicited Mackenzie Rodriguez DO [address], [facility]11 Social History Tobacco Use Types Packs/Day Years [...] Routine [facility] [address] [place] [phone] Mackenzie Rodriguez DO [address] [place] [address] documented as of this encounter Procedures Procedure Name Priority Date/Time Associated Diagnosis Comments US OB TRANSVAGINAL 08/10/2024 8: 44 AM EST documented in this encounter Results * US OB TRANSVAGINAL (08/10/2024 8:44 AM EST) Anatomical Region Laterality Modality Other 08/10/2024 8:44 AM EST Narrative 08/10/2024 8:47 [place] [address] Ultrasound Report Signed Patient: AMBER PIZANO MR#: [id number] : 2000 Acct:[id number] Age/Sex: 24 / F ADM Date: 08/10/24 Loc: SURGOUT Attending Dr: Mackenzie Rodriguez D.O. Ordering Physician: Mackenzie Rodriguez D.O. Date of Service: 08/10/24 Procedure(s): US OB transvaginal Accession Number(s): [id number] cc: LUIS SEE ; Mackenzie Rodriguez D.O. The [place] [id number] Patient Name: AMBER PIZANO MRN: [id number] date: 2000 Sex: F Assigned Patient Location: [facility] Current Patient Location: [facility] Accession/Order Number: [id number] Exam Date: 08/10/2024 08:10 Report Date: 08/10/2024 [...] M.D. Signed By: 08/10/24846 DD/ 3 TD/TT: Chain Dyer: Procedure Note Radiology, Radiologist, MD - 08/10/2024 [place] [address] Ultrasound Report Signed Patient: AMBER PIZANO MMR#: [id number] : 2000Acct:[id number] Age/Sex: 24 / FADM Date: 08/10/24 Loc: SURGOUT Attending Dr: Mackenzie Rodriguez D.O. Ordering Physician: Mackenzie Rodriguez D.O. Date of Service: 08/10/24 Procedure(s): US OB transvaginal Accession Number(s): [id number] cc: LUIS SEE ; Mackenzie Rodriguez D.O. The [place] [id number] Patient Name: AMBER PIZANO MRN: [id number] date: 2000 Sex: F Assigned Patient Location: [facility] Current Patient Location: [facility] Accession/Order Number: [id number] Exam Date: 08/10/2024 08:10 Report Date: 08/10/2024 [...] Lavon Herrera M.D. Signed By:08/10/2447 DD/ TD/TT: Chain Dyer: us Mackenzie Michael DO [facility] Final Result documented in this encounter Visit Diagnoses Not on filedocumented in this encounter Care Teams Slot Operations Manager Relationship Specialty Start Date End Date Unallocated, Noms Provider, [address] [place] [address] PCP - General Family Medicine 08/03/24 documented as of this encounter
--- OUTSIDE RECORDS SUMMARY | 2025-05-08 17:01 | XMS_ITS | Encounter Summary ---
Author Organization [facility] Address [address] [place] [address] Care Team Providers Care Burr Bench Operator Name Role Phone Unallocated, Noms Provider Primary Care Provi krissy Encounter Details Date Type Department Care Team (Late st Contact Info) Description 05/08/2025 Abstract ARJUN PANG [facility] [place] [address] Jose Rordiguez DO [address], [facility]11 Social History Tobacco Use Types Packs/Day [...] EDT Routine NOMMay PANG [address] [place] [address] Jose Rodriguez DO [address] [facility] [address] [place] [place] [address] documented as of this encounter Visit Diagnoses Not on filedocumented in this encounter Care Teams Burr Bench Operator Relationship Specialty Start Date End Date Unallocated, Noms Provider, [place] [address] PCP - General Family Medicine 08/03/24 documented as of this encounter
--- OUTSIDE RECORDS SUMMARY | 2025-05-08 17:01 | XMS_ITS | Encounter Summary ---
Author Organization [facility] Address [address] [place] [address] Care Team Providers Care Medical Leader Name Role Phone Unallocated, Noms Provider Primary Care Provi krissy Encounter Details Date Type Department Care Team (Late st Contact Info) Description 05/04/2025 Clinisync Result Encounter NOMS External Department Unsolicited Rossana Ramos PA [address] [place], [facility]11 Social History Tobacco Use Types Packs/Day [...] PM EDT Routine [facility] [address] [facility] [place] [phone] Jose Rodriguez DO [address], [facility]11 documented as of this encounter Procedures Procedure Name Priority Date/Time Associated Diagnosis Comments TBH CREATININE Routine 05/04/2025 7:23 AM EDT GLUCOSE TOLERANCE 3 HOUR Routine 05/04/2025 7:23 AM EDT [facility] PROTHROMBIN TIME INR W/O COUM Routine 05/04/2025 7:23 AM EDT [facility] AST Routine 05/04/2025 7:23 AM EDT [facility] APTT Routine 05/04/2025 7:23 AM EDT ALL URIC ACID Routine 05/04/2025 7:23 AM EDT ALL LDH Routine 05/04/2025 7:23 AM EDT ALL CBC WITH AUTO DIFF Routine 05/04/2025 7:23 AM EDT ALL BUN Routine 05/04/2025 7:23 AM EDT documented in this encounter Results * (ABNORMAL) GLUCOSE TOLERANCE 3 HOUR (05/04/2025 7:23 AM EDT) GLUCOSE TOLERANCE 3 HOUR (H) mg/dL TBH Comment: GLU FAST 108H (<95) Col: 05/04/25 0723 GLU 1HR 234H (<180) Col: 05/04/25 0826 GLU 2HR 186H (<155) Col: 05/04/25 0927 GLU 3HR 133 (<140) Col: 05/04/25 1028 05/04/2025 7:23 AM EDT 05/04/2025 7:38 AM EDT Narrative [facility] - 05/04/2025 10:50 AM EDT us Rossana [facility] BLOOD ORDERABLES Final Resul t [facility] TB * ALL LDH (05/04/2025 7:23 AM EDT) LACTATE DEHYDROGENASE 163 81 - 234 U/L TBH 05/04/2025 7:23 AM EDT 05/04/2025 7:30 AM EDT Narrative [facility] - 05/04/2025 8:21 AM EDT us Rossana BISWAS CLINISYPROSPER Final Result Performing Organization Address [facility] Co de Phone Number [facility] TB * CCF AST (05/04/2025 7:23 AM EDT) ASPARTATE AMINO TRANSFERASE 23 15 - 37 U/L TBH 05/04/2025 7:23 AM EDT 05/04/2025 7:30 AM EDT Narrative [facility] - 05/04/2025 8:21 AM EDT us Rossana ROSENBERGISYPROSPER Final Result Performing Organization Address [facility] de Phone Number [facility] TB * ALL URIC ACID (05/04/2025 7:23 AM EDT) URIC ACID 3.7 2.6 - 6.0 mg/dL TB 05/04/2025 7:23 AM EDT 05/04/2025 7:30 AM EDT Narrative [facility]IN[facility] - 05/04/2025 8:21 AM EDT us Rossana ROSENBERGISYPROSPER Final Result Performing Organization Address [facility] Co de Phone Number [facility] TB * (ABNORMAL) TBH CREATININE (05/04/2025 7:23 AM EDT) CREATININE 0.37(L) 0.55 - 1.02 mg/dL TBH TBH EGFR-AF FAROESE >60 >=60 mL/min/1.7 3m 2 TBH TBH EGFR-NON AF FAROESE >60 >=60 mL/min/1.7 3m 2 TBH 05/04/2025 7:23 AM EDT 05/04/2025 7:30 AM EDT Narrative [facility]IN[facility] - 05/04/2025 8:21 AM EDT us Rossana BISWAS CLINISYPROSPER Final Result Performing Organization Address [facility] de Phone Number CLINBARRETTNC [facility] * ALL BUN (05/04/2025 7:23 AM EDT) BLOOD UREA NITROGEN 8.0 7.0 - 18.0 mg/dL TBH 05/04/2025 7:23 AM EDT 05/04/2025 7:30 AM EDT Narrative [facility]IN[facility] - 05/04/2025 8:21 AM EDT us Rossana ORR Final Result Performing Organization Address [facility] de Phone Number CLINBARRETTFORMERLY [facility] * [facility] APTT (05/04/2025 7:23 AM EDT) PARTIAL THROMBOPLASTIN TIME 25.7 22.3 - 36.2 sec TB 05/04/2025 7:23 AM EDT 05/04/2025 7:30 AM EDT Narrative [facility]IN[facility] - 05/04/2025 8:04 AM EDT Rossana ORR Final Result Performing Organization Address [facility] de Phone Number CLINALICE [facility] * SRMCOH PROTHROMBIN TIME INR W/O COUM (05/04/2025 7:23 AM EDT) PROTHROMBIN TIME 10.1 9.0 - 11.6 sec TBH TBH INR 0.95 TBH Comment: DESIRED INR: 2.0-3.0 CONDITIONS NOT LISTED BELOW 2.5-3.5 FOR PROSTHETIC HEART VALVE REPLACEMENT 2.5-3.5 RECURRENT THROMBOSIS 05/04/2025 7:23 AM EDT 05/04/2025 7:30 AM EDT Narrative CLIN[facility] - 05/04/2025 8:04 AM EDT Rossana ORR Final Result CLINALICE TB * (ABNORMAL) ALL CBC WITH AUTO DIFF (05/04/2025 7:23 AM EDT) TBH WBC 12.5(H) 4.0 - 11.0 10 3/uL TBH TBH RBC 4.29 4.20 - 5.40 10 6/uL TBH TBH HGB 13.7 12.0 - 16.0 g/dL TBH TBH HCT 39.5 36.0 - 48.0 % TBH TBH MCV 92.1 81.0 - 99.0 fL TBH TBH MCH 31.9 26.7 - 34.0 pg TBH TBH MCHC 34.7 29.9 - 35.2 g/dL TBH TBH RDW 12.7 11.0 - 15.0 % TBH TBH PLT 226 150 - 450 10 3/uL TBH TBH MPV 11.0 9.5 - 13.5 fL TBH NEUTROPHILS PERCENT AUTO 79.2(H) 43.0 - 75.0 % TBH LYMPHOCYTES PERCENT AUTO 12.6(L) 20.5 - 60.0 % TBH MONOCYTES PERCENT AUTO 5.0 1.7 - 12.0 % TBH TBH EO % 2.6 0.9 - 7.0 % TBH BASOPHILS PERCENT AUTO 0.2 0.2 - 2.0 % TBH IMMATURE GRANULOCYTES PCT AUTO 0.4 0.0 - 0.5 % TBH NEUTROPHILS ABSOLUTE AUTO 9.9(H) 1.4 - 6.5 10 3/uL TBH LYMPHOCYTES ABSOLUTE AUTO 1.6 1.2 - 3.8 10 3/uL TBH MONOCYTES ABSOLUTE AUTO 0.6 0.3 - 0.8 10 3/uL TBH TBH EO # 0.3 0.0 - 0.7 10 3/uL TBH BASOPHILS ABSOLUTE AUTO 0.0 0.0 - 0.1 10 3/uL TBH IMMATURE GRANULOCYTES ABS AUTO 0.05(H) 0.00 - 0.03 10 3/uL TBH 05/04/2025 7:23 AM EDT 05/04/2025 7:30 AM EDT Narrative [facility] - 05/04/2025 7:43 AM EDT us Rossana BISWAS CLINALICE Final Result [facility] documented in this encounter Visit Diagnoses Not on filedocumented in this encounter Care Teams Medical Leader Relationship Specialty Start Date End Date Unallocated, Noms Provider, [address] [place] [address] PCP - General Family Medicine 08/03/24 documented as of this encounter
--- OUTSIDE RECORDS SUMMARY | 2025-05-08 17:01 | XMS_ITS | Encounter Summary ---
Author Organization [facility] Address [address] [place] [address] Care Team Providers Care Family Assistant Name Role Phone Unallocated, Noms Provider Primary Care Provi krissy Encounter Details Date Type Department Care Team (Late st Contact Info) Description 04/29/2025 Telephone [facility] Rafia PANG [address] [place] [address] [place] [phone] Kavitha Almanza MA Social History Tobacco Use [...] results and recommendations, PVU Order sent to [facility] * Telephone Encounter - Kavitha Almanza MA - 04/29/2025 3:50 PM EDT LMVM or pt to return call to go over glucose results documented in this encounter Plan of Treatment Upcoming Encounters Date Type Department Care Team (Late st Contact Info) Description 05/14/2025 2:40 PM EDT Routine ARJUN TREVIÑOGYN [address] [facility] [place] [address] Jose Rodriguez DO [address] [facility] [address] [place]u[address] [place] [address] Scheduled Orders Name Type Priority Associated Diagnoses Orde r Schedule Glucose tolerance, 3 hours Lab Routine Elevated glucose tolerance test Expected: 04/29/2025 (Approximate), Expires: 04/29/2026 documented as of this encounter Visit Diagnoses Diagnosis Elevated glucose tolerance test Impaired glucose tolerance test documented in this encounter Care Teams Family Assistant Relationship Specialty Start Date End Date Unallocated, Arjun Vo MD [address] [place] [address] PCP - General Family Medicine 08/03/24 documented as of this encounter
--- OUTSIDE RECORDS SUMMARY | 2025-05-08 17:01 | XMS_ITS | Encounter Summary ---
Author Organization [facility] Address [address] [place] [address] Care Team Providers Care Parole Agent Name Role Phone Unallocated, Noms Provider Primary Care Provi krissy Encounter Details Date Type Department Care Team (Late st Contact Info) Description 05/04/2025 Clinisync Result Encounter NOMS External Department Unsolicited Collin Leach PA [address] [place], [facility]11 Social History Tobacco Use Types Packs/Day [...] PM EDT Routine [facility] [address] [facility] [facility] [place] [phone] Jose Rodriguez DO [address] [place], [facility]11 documented as of this encounter Procedures Procedure Name Priority Date/Time Associated Diagnosis Comments US OB BPP W NON-STRESS 05/04/2025 12:09 PM EDT documented in this encounter Results * US OB BPP W NON-STRESS (05/04/2025 12:09 PM EDT) Anatomical Region Laterality Modality Other 05/04/2025 12:0 9 PM EDT Narrative 05/04/2025 12:12 [place] [address] Ultrasound Report Signed Patient: VIMAL PIZANO MR#: [id number] : 2000 Acct:[id number] Age/Sex: 25 / F ADM Date: 05/04/25 Loc: [facility] 250-[address]: Collin Leach Ordering Physician: Collin Leach Date of Service: 05/04/25 Procedure(s): US OB BPP w non-stress Accession Number(s): [id number] cc: Collin Leach; LUIS SEE [address] [address] Patient Name: VIMAL PIZANO MRN: [id number] date: 2000 Sex: F Assigned Patient Location: [facility] Current Patient Location: [facility] Accession/Order Number: [id number] Exam Date: 05/04/2025 12:08 Report Date: 05/04/2025 12:09 At the request of: COLLIN LEACH Procedure: US OB BPP w non-stress Biophysical profile. Reason for exam: Gestational diabetes COMPARISON: None TECHNIQUE: Transabdominal imaging of the gravid uterus was obtained. FINDINGS: The museum informatics specialist reports a BPP of 8 out of 8. DANYA is normal at 12.4 cm. heart rate 150 bpm. US/US OB BPP w non-stress IMPRESSION: BPP 8 out of 8. Impression dictated by: Bulmaro Arias Jr., D.O. 05/04/2025 12:09 PM Dictation Location: RADIO-PC-18 Electronically authenticated by: [id number] Y Date: 05/04/2025 12:09 Dictated By: Bulmaro Arias M.D. Signed By: 05/04/25 1212 DD/ 1209 TD/TT: Pearl Digger: Procedure Note Radiology, Radiologist, - 05/04/2025 [place] [address] Ultrasound Report Signed Patient: VIMAL PIZANO MMR#: [id number] : 2000Acct:[id number] Age/Sex: 25 / FADM Date: 05/04/25 Loc: [place] [address]: Collin Leach Ordering Physician: Collin Leach Date of Service: 05/04/25 Procedure(s): US OB BPP w non-stress Accession Number(s): [id number] cc: Collin Leach; LUIS SEE The [place] [id number] Patient Name: VIMAL PIZANO MRN: [id number] date: 2000 Sex: F Assigned Patient Location: [facility] Current Patient Location: [facility] Accession/Order Number: [id number] Exam Date: 05/04/2025 12:08 Report Date: 05/04/2025 12:09 At the request of: COLLIN LEACH Procedure: US OB BPP w non-stress Biophysical profile. Reason for exam: Gestational diabetes COMPARISON: None TECHNIQUE: Transabdominal imaging of the gravid uterus was obtained. FINDINGS: The museum informatics specialist reports a BPP of 8 out of 8. DANYA is normal at12.4 cm. heart rate 150 bpm. US/US OB BPP w non-stress IMPRESSION: BPP 8 out of 8. Impression dictated by: Bulmaro Arias Jr., D.O. 05/04/2025 12:09 PM Dictation Location: [employer]-18 Electronically authenticated by: [id number] Y Date: 2:09 Dictated By: Bulmaro Arias M.D. Signed By:05/04/25 1212 DD/ 1209 TD/TT: Pearl Digger: us Collin BISWAS [facility] Final Result documented in this encounter Visit Diagnoses Not on filedocumented in this encounter Care Teams Parole Agent Relationship Specialty Start Date End Date Unallocated, Noms Provider, [address] [place] [address] PCP - General Family Medicine 08/03/24 documented as of this encounter
--- OUTSIDE RECORDS SUMMARY | 2025-05-08 17:01 | XMS_ITS | Encounter Summary ---
Author Organization [facility] Address [address] [place] [address] Care Team Providers Care Aircraft Structural Repairer Name Role Phone Unallocated, Noms Provider Primary Care Provi krissy Encounter Details Date Type Department Care Team (Late st Contact Info) Description 04/30/2025 Bamboo flowsheet ARJUN PANG [address] [place] [address] Rossana Ramos PA [address] [place], [facility]11 Social History Tobacco [...] PM EDT Routine [facility] Rafia PANG [address] [place] [address] Michael, Jose, [address] [place]ué [place] [address] documented as of this encounter Visit Diagnoses Not on filedocumented in this encounter Care Teams Aircraft Structural Repairer Relationship Specialty Start Date End Date Unallocated, Noms Provider, [place] [address] PCP - General Family Medicine 08/03/24 documented as of this encounter
--- OUTSIDE RECORDS SUMMARY | 2025-05-08 17:01 | XMS_ITS | Encounter Summary ---
Author Organization [facility] Address [address] [place] [address] Care Team Providers Care Canal Superintendent Name Role Phone Vaishali Zapata MD Primary Care Provider Bipin cheng Unallocated, Noms Provider Primary Care Provi krissy Encounter Details Date Type Department Care Team (Late st Contact Info) Description 08/02/2024 Abstract ARJUN PANG [address] [place] [address] Jose Rodriguez DO [address], [place] [address] Social History Tobacco Use Types Packs/Day Years [...] 2:40 PM EDT Routine ARJUN PANG [address] [place] [address] Jose Rodriguez DO [address], [facility] documented as of this encounter Visit Diagnoses Not on filedocumented in this encounter Care Teams Canal Superintendent Relationship Specialty Start Date End Date Vaishali Zapata MD [address] [place] [address] PCP - General Family Medicine 02/04/23 08/02/24 Unallocated, Noms Provider, [address] [place] [address] PCP - General Family Medicine 08/03/24 documented as of this encounter
--- OUTSIDE RECORDS SUMMARY | 2025-05-08 17:01 | XMS_ITS | Encounter Summary ---
Author Organization [facility] Address [address] [place] [address] Care Team Providers Care Senior Animal Trainer Name Role Phone Unallocated, Noms Provider Primary Care Provi krissy Encounter Details Date Type Department Care Team (Late st Contact Info) Description 04/27/2025 Clinisync Result Encounter NOMS External Department Unsolicited Rossana Ramos PA [address] [place], [facility]11 Social History Tobacco Use Types [...] PM EDT Routine [facility] OBG[facility] [address] [facility] [place] [place] [phone] Jose Rodriguez DO [address] [place], [facility]11 documented as of this encounter Procedures Procedure [...] BISWAS LAB BLOOD ORDERABLES Final Resul t [facility] * (ABNORMAL) ALL CBC WITH AUTO DIFF [...] on filedocumented in this encounter Care Teams Senior Animal Trainer Relationship Specialty Start Date End Date Unallocated, Noms Provider, [address] [place] [address] PCP - General Family Medicine 08/03/24 documented as of this encounter
--- OUTSIDE RECORDS SUMMARY | 2025-05-08 17:01 | XMS_ITS | Encounter Summary ---
Author Organization [facility] Address [address] [place] [address] Care Team Providers Care Detail Manager Name Role Phone Unallocated, Noms Provider Primary Care Provi krissy Encounter Details Date Type Department Care Team (Late st Contact Info) Description 05/04/2025 Telephone [facility] [address] [place] [address] Jose Rodriguez DO [address] [place], [id number] Social History Tobacco Use Types Packs/Day Years [...] encounter Miscellaneous Notes * Telephone Encounter - Glenna Butler, MARILU - 05/07/2025 9:03 AM EDT Called pt to let her know that she did not pass her 3 hour glucose test and that I would be sendingin supplies and referring her to diabetic education. documented in this encounter Plan of Treatment Upcoming Encounters Date Type Department Care Team (Late st Contact Info) Description 05/14/2025 2:40 PM EDT Routine [facility] [address] [place] [place] [phone] Jose Rodriguez DO [address] [place] [place] [address] documented as of this encounter Visit Diagnoses Diagnosis Gestational diabetes mellitus (GDM), antepartum, gestational diabetes method of control unspecified ([facility]) Elevated glucose tolerance test Impaired glucose tolerance test documented in this encounter Care Teams Detail Manager Relationship Specialty Start Date End Date Unallocated, [place] [address] PCP - General Family Medicine 08/03/24 documented as of this encounter
--- OUTSIDE RECORDS SUMMARY | 2025-05-08 17:02 | XMS_ITS | Encounter Summary ---
Author Organization [facility] Address [address] [place] [address] Care Team Providers Care Data Librarian Name Role Phone Unallocated, Noms Provider Primary Care Provi krissy Encounter Details Date Type Department Care Team (Late st Contact Info) Description 08/10/2024 Abstract [facility] [place] [address] Jose Rodriguez DO [address] [place], [place] [address] Social History Tobacco Use Types Packs/Day Years [...] 05/14/2025 2:40 PM EDT Routine [facility] [place] [address] Jose Rodriguez DO [address], [facility] documented as of this encounter Visit Diagnoses Not on filedocumented in this encounter Care Teams Data Librarian Relationship Specialty Start Date End Date Unallocated, Noms Provider, [address] [place] [address] PCP - General Family Medicine 08/03/24 documented as of this encounter
--- OUTSIDE RECORDS SUMMARY | 2025-05-08 17:02 | XMS_ITS | Encounter Summary ---
Author Organization [facility] Address [address] [place] [address] Care Team Providers Care Expander Name Role Phone Unallocated, Noms Provider Primary Care Provi krissy Encounter Details Date Type Department Care Team (Late Contact Info) Description 03/28/2025 Abstract ARJUN PANG [facility] [place] [address] Jose Rodriguez DO [address], [facility]11 Social History Tobacco Use Types [...] EDT Routine [facility] [address] [place] [address] Jose Rodriguez DO [address] [facility] [address] [place] [address] documented as of this encounter Visit Diagnoses Not on filedocumented in this encounter Care Teams Expander Relationship Specialty Start Date End Date Unallocated, Noms Provider, [place] [address] PCP - General Family Medicine 08/03/24 documented as of this encounter
--- OUTSIDE RECORDS SUMMARY | 2025-05-08 17:02 | XMS_ITS | Encounter Summary ---
Author Organization [facility] Address [address] [place] [address] Care Team Providers Care Supervisor Estimator And Drafter Name Role Phone Unallocated, Noms Provider Primary Care Provi krissy Encounter Details Date Type Department Care Team (Late st Contact Info) Description 05/06/2025 Clinisync Result Encounter [facility] External Department Unsolicited Rossana Ramos PA [address] [place], [facility] Social History Tobacco Use Types Packs/Day [...] PM EDT Routine [facility] [address] [place] [id number] Jose Rodriguez DO [address] [facility] [address] Josué [place], [facility] documented as of this encounter Procedures Procedure Name Priority Date/Time Associated Diagnosis Comments [facility] TOTAL PROTEIN 24 HOUR URINE Routine 05/06/2025 7:00 AM EDT documented in this encounter Results * [facility] TOTAL PROTEIN 24 HOUR URINE (05/06/2025 7:00 AM EDT) TOTAL PROTEIN URINE RANDOM <6.0 <=11.9 mg/dL [facility] TOTAL VOLUME 24 HOUR URINE 3,700 mL/24hr [facility] 05/06/2025 7:00 AM EDT 05/06/2025 4:47 PM EDT Narrative [facility] - 05/06/2025 5:50 PM EDT us Rossana BISWAS [facility] Final Result [facility] documented in this encounter Visit Diagnoses Not on filedocumented in this encounter Care Teams Supervisor Estimator And Drafter Relationship Specialty Start Date End Date Unallocated, Noms Provider, [address] [place] [address] PCP - General Family Medicine 08/03/24 documented as of this encounter
--- OUTSIDE RECORDS SUMMARY | 2025-05-08 17:02 | XMS_ITS | Clinical Summary ---
Author Organization [facility] Address [address] [place] [address] Care Team Providers Care Polysomnographic Technologist Name Role Phone Unallocated, Noms Provider Primary [...] before bedtime. Active labetalol (Normodyne) 200 MG tabletIndication s: induced hypertension, antepartum (HHS-HCC) Take 1 tablet (200 mg) by mouth in the morning and 1 tablet (200 mg) before bedtime. 60 tablet 04/25/20 26 Active labetalol (Normodyne) 300 MG tabletIndication s:-alexadnra mariluz hypertension in third trimester (HHS-HCC) Take 1 tablet (300 mg) by mouth in the morning and 1 tablet (300 mg) in the evening and 1 tablet (300 mg) before bedtime. 90 tablet 04/30/20 26 Active Lancets Ultra Thin miscIndications: Gestational diabetes mellitus (GDM), antepartum, gestational diabetes method of control unspecified (HHS-HCC),Elevat ed glucose tolerance test 1 each by In Vitro route Daily Use to check FSBS four times daily 150 each 3 5 06/07/20 25 Active Alcohol Swabs (Alcohol Prep Pad) 70 % padsIndications: Gestational diabetes mellitus (GDM), antepartum, gestational diabetes method of control unspecified (HHS-HCC),Elevat ed glucose tolerance test Apply 1 Pad topically Daily Use four times daily to check FSBS. 150 each 3 5 Active Glucose Blood (Blood Glucose Test) stripIndications :Gestational diabetes mellitus (GDM), antepartum, gestational diabetes method of control unspecified (HHS-HCC),Elevat ed glucose tolerance test 1 strip by In Vitro route Daily Use in the morning prior to breakfast, 1 hour after each meal for a total of 4times daily. 150 strip 3 5 06/07/20 25 Active Blood Glucose Monitoring Suppl (D-Care Glucometer) w/Device kitIndications:G estational diabetes mellitus (GDM), antepartum, gestational diabetes method of control unspecified (HHS-HCC),Elevat ed glucose tolerance test 1 kit Daily Use four times daily to check FSBS. In the morning prior to breakfast & 1 hour after each meal for a total of 4times daily. 1 kit 5 05/08/20 26 Active labetalol (Normodyne) 100 MG tabletIndication s:Elevated BP without diagnosis of hypertension Take 1 tablet (100 mg) by mouth in the morning and 1 tablet (100 mg) before bedtime. 60 tablet 11 5 04/25/20 25 Discontin ued(Ineff ective) Encounters Date Type Department Care Team Description 05/08/2025 [place] [address] Mackenzie Rodriguez DO 05/07/2025 Results [place] [id number] Glenna Butler LPN 05/06/2025 Clinisync Result Encounter NOMS External Department Unsolicited Rossana Leach PA 05/04/2025 Clinisync Result Encounter NOMS External Department Unsolicited Rossana Leach PA 05/04/2025 Clinisync Result Encounter NOMS External Department Unsolicited Rossana Leach PA 05/04/2025 Telephone [facility] [address] [place] [address] Mackenzie Rodriguez DO 05/04/2025 Clinisync Result Encounter NOMS External Department Unsolicited Rossana Leach PA 04/30/2025 10:50 AM EDT Routine [facility] [place] [address] Rossana Leach PA BP check; -induced hypertension in third trimester ([facility]); Gestational diabetes mellitus (GDM) in third trimester, gestational diabetes method of control unspecified ([facility]) 04/30/2025 Bamboo flowsheet [facility] [address] [place] [address] Rossana Leach PA 04/29/2025 Telephone [facility] [address] [place] [address] Kavitha Almanza MA 04/27/2025 Clinisync Result Encounter NOMS External Department Unsolicited Rossana Leach PA 04/25/2025 2:50 PM EDT Office Visit [facility] [address] [facility] [place] [address] Rossana Leach PA Second trimester ([facility]); 27 weeks gestation of ([facility]); induced hypertension, antepartum ([facility]) 04/25/2025 Bamboo flowsheet [facility] [address] [place] [address] Rossana Leach PA 04/11/2025 3:30 PM EDT Routine [facility] [address] [place] [address] Rossana Leach PA Second trimester ([facility]); 25 weeks gestation of ([facility]); Diabetes mellitus screening; Elevated BP without diagnosis of hypertension 04/11/2025 Bamboo flowsheet [facility] [place] [facility] [address] [place] [address] Rossana Leach PA 03/28/2025 Abstract [facility] [address] [place] [phone] Mackenzie Rodriguez, 03/25/2025 Clinisync Result Encounter NOMS External Department Unsolicited Mackenzie Rodriguez, DO 03/14/2025 10:50 AM EDT Routine [facility] [address] [facility] [place] [address] Mackenzie Rodriguez, DO Second trimester ([facility]); 21 weeks gestation of ([facility]) 03/14/2025 Bamboo flowsheet [facility] [place] [facility] [address] [place] [address] Mackenzie Rodriguez, 03/11/2025 Results Follow-Up [facility] [address] [place] [address] Glenna Butler LPN 03/11/2025 Telephone [facility] [address] [place] [phone] Glenna Butler LPN 03/08/2025 Clinisync Result Encounter NOMS External Department Unsolicited Mackenzie Rodriguez, DO 03/08/2025 Clinisync Result Encounter NOMS External Department Unsolicited Mackenzie Rodriguez, DO 03/06/2025 Orders Only [facility] [address] [place] [address] Kavitha Almanza MA 02/20/2025 3:40 PM EDT Routine [facility] [address] [place] [address] Rossana Leach PA Screening, , for anatomic survey ([facility]); Well woman exam with routine gynecological exam; STD exposure; Second trimester ([facility]); 18 weeks gestation of ([facility]); Urinary frequency 02/20/2025 Clinisync Result Encounter NOMS External Department Unsolicited Rossana Leach PA 02/20/2025 External Result Encounter NOMS External Department Unsolicited Rossana Leach PA 02/20/2025 Bamboo flowsheet [facility] [address] [place] [address] Rossana Leach PA from Last 3 Months Family History [...] EDT Routine [facility] [address] [place] [address] Mackenzie Rodriguez, [address] [place], [place] [phone] Health Maintenance Due Date Last Done Comments Influenza Vaccine (#1) 2025 08/28/2003, 2002 Procedures Procedure Name Priority Date/Time Associated Diagnosis Comments TBH TOTAL PROTEIN 24 HOUR URINE Routine 05/06/2025 7:00 AM EDT US OB BPP W NON-STRESS 05/04/2025 12:09 PM EDT US OB GROWTH 05/04/2025 12:08 PM EDT GLUCOSE TOLERANCE 3 HOUR Routine 05/04/2025 7:23 AM EDT ALL LDH Routine 05/04/2025 7:23 AM EDT CCF AST Routine 05/04/2025 7:23 AM EDT ALL URIC ACID Routine 05/04/2025 7:23 AM EDT TBH CREATININE Routine 05/04/2025 7:23 AM EDT ALL BUN Routine 05/04/2025 7:23 AM EDT CCF APTT Routine 05/04/2025 7:23 AM EDT SRMCOH PROTHROMBIN TIME INR W/O COUM Routine 05/04/2025 7:23 AM EDT ALL CBC WITH AUTO DIFF Routine 05/04/2025 7:23 AM EDT POCT URINALYSIS DIPSTICK Routine 04/30/2025 11:33 AM EDT BP check GLUCOSE 1 HOUR Routine 04/27/2025 10:05 AM EDT ALL CBC WITH AUTO DIFF Routine 04/27/2025 10:05 AM EDT POCT URINALYSIS DIPSTICK Routine 04/25/2025 3:12 PM EDT Second trimester ([facility]) POCT URINALYSIS DIPSTICK Routine 04/11/2025 3:44 PM EDT Second trimester ([facility]) US OB INCOMPLETE ANATOMY 03/25/2025 8:25 AM EDT POCT URINALYSIS DIPSTICK Routine 03/14/2025 11:39 AM EDT Second trimester ([facility]) US OB CERVICAL LENGTH 03/08/2025 8:36 PM EDT US OB ANATOMY 03/08/2025 8:36 PM EDT RECURRENT VAGINITIS (HTRX) Routine 02/20/2025 4:33 PM EDT URINARY TRACT INFECTION (HTRX) Routine 02/20/2025 4:30 PM EDT POCT URINALYSIS DIPSTICK Routine 02/20/2025 4:18 PM EDT 18 weeks gestation of ([facility]) IGP,APTIMA HPV,AGE GDLN Routine 02/20/2025 3:50 PM EDT PAP SMEAR Routine 02/20/2025 12:00 AM EDT from Last 3 Months Results * TBH TOTAL PROTEIN 24 HOUR URINE (05/06/2025 7:00 AM EDT) TOTAL PROTEIN URINE RANDOM <6.0 <=11.9 mg/dL TBH TOTAL VOLUME 24 HOUR URINE 3,700 mL/24hr TBH 05/06/2025 7:00 AM EDT 05/06/2025 4:47 PM EDT Narrative CLINISYNC - 05/06/2025 5:50 PM EDT Rossana Rachel ORR Final Result CLINISYNC TBH * US OB BPP W NON-STRESS (05/04/2025 12:09 PM EDT) Anatomical Region Laterality Modality Other 05/04/2025 12:0 9 PM EDT Narrative 05/04/2025 12:[place] [address] Ultrasound Report Signed Patient: VIMAL FUNES MR#: [id number] : 2000 Acct:[id number] Age/Sex: 25 / F ADM Date: 05/04/25 Loc: [place] [address]: Rossana Leach Ordering Physician: Rossana Leach Date of Service: 05/04/25 Procedure(s): US OB BPP w non-stress Accession Number(s): [id number] cc: Rossana Leach; [place] [address] Patient Name: VIMAL FUNES MRN: [id number] date: 2000 Sex: F Assigned Patient Location: [facility] Current Patient Location: [facility] Accession/Order Number: [id number] Exam Date: 05/04/2025 12:08 Report Date: 05/04/2025 12:09 At the request of: ROSSANA LEACH Procedure: US OB BPP w non-stress Biophysical profile. Reason for exam: Gestational diabetes COMPARISON: None TECHNIQUE: Transabdominal imaging of the gravid uterus was obtained. FINDINGS: The tandem operator reports a BPP of 8 out of 8. DANYA is normal at 12.4 cm. heart rate 150 bpm. US/US OB BPP w non-stress IMPRESSION: BPP 8 out of 8. Impression dictated by: Bulmaro Arias Jr., D.O. 05/04/2025 12:09 PM Dictation Location: [place] [address] Electronically authenticated by: [id number] Y Date: 05/04/2025 12:09 Dictated By: Bulmaro Arias M.D. Signed By: 05/04/25 1212 DD/ 1209 TD/TT: Boat Puller: Procedure Note Radiology, Radiologist, - 05/04/2025 [place] [address] Ultrasound Report Signed Patient: VIMAL FUNES MMR#: [id number] : 2000Acct:[id number] Age/Sex: 25 / FADM Date: 05/04/25 Loc: [facility] 250-[address]: Rossana Leach Ordering Physician: Rossana Leach Date of Service: 05/04/25 Procedure(s): US OB BPP w non-stress Accession Number(s): [id number] cc: Rossana Leach; [place] [address] Patient Name: VIMAL FUNES MRN: [id number] date: 2000 Sex: F Assigned Patient Location: [facility] Current Patient Location: [facility] Accession/Order Number: [id number] Exam Date: 05/04/2025 12:08 Report Date: 05/04/2025 12:09 At the request of: ROSSANA LEACH Procedure: US OB BPP w non-stress Biophysical profile. Reason for exam: Gestational diabetes COMPARISON: None TECHNIQUE: Transabdominal imaging of the gravid uterus was obtained. FINDINGS: The tandem operator reports a BPP of 8 out of 8. DANYA is normal at12.4 cm. heart rate 150 bpm. US/US OB BPP w non-stress IMPRESSION: BPP 8 out of 8. Impression dictated by: Bulmaro Arias Jr., D.O. 05/04/2025 12:09 PM Dictation Location: [place] [address] Electronically authenticated by: [id number] Y Date: 2:09 Dictated By: Bulmaro Arias M.D. Signed By:05/04/252 DD/ 1209 TD/TT: Boat Puller: us Rossana Leach PA CLIN[facility] IMAGING Final Result * US OB GROWTH (05/04/2025 12:08 PM EDT) Anatomical Region Laterality Modality Other 05/04/2025 12:0 8 PM EDT Narrative 05/04/2025 12:11 PM EDT [address] [address] Ultrasound Report Signed Patient: VIMAL FUNES MR#: [id number] : 2000 Acct:[id number] Age/Sex: 25 / F ADM Date: 05/04/25 Loc: [facility] 250-[address]: Rossana Leach Ordering Physician: Rossana Leach Date of Service: 05/04/25 Procedure(s): US OB growth Accession Number(s): [id number] cc: Rossana Leach; [place] [address] Patient Name: VIMAL FUNES MRN: [id number] date: 2000 Sex: F Assigned Patient Location: [facility] Current Patient Location: [facility] Accession/Order Number: [id number] Exam Date: 05/04/2025 12:06 Report Date: 05/04/2025 12:08 At the request of: ROSSANA LEACH Procedure: US OB growth Growth ultrasound. Reason for exam: Gestational diabetes. COMPARISON: Ultrasound 03/08/2025. TECHNIQUE: Transabdominal imaging of the gravid uterus was obtained. FINDINGS: Single live intrauterine measuring 26 weeks 3 days by anatomic measurements. Head circumference is less than 3rd percentile. Abdominal circumference is at the 20th percentile. DANYA is normal at 12.38 cm. Estimated weight is 1054 g which is at the 5th percentile. heart rate measures 150 bpm. US/US OB growth IMPRESSION: Single live intrauterine measuring 26 weeks 3 days by anatomic measurements. Low percentile head circumference and estimated weight. Impression dictated by: Bulmaro Arias Jr., D.O. 05/04/2025 12:08 PM Dictation Location: [place] [address] Electronically authenticated by: [id number] Y Date: 05/04/2025 12:08 Dictated By: Bulmaro Arias M.D. Signed By: 05/04/25 1211 DD/ 1208 TD/TT: Boat Puller: Procedure Note Radiology, Radiologist, - 05/04/2025 [place] [address] Ultrasound Report Signed Patient: VIMAL FUNES MMR#: [id number] : 2000Acct:[id number] Age/Sex: 25 / FADM Date: 05/04/25 Loc: [facility] 250- Attending Dr: Rossana Leach Ordering Physician: Rossana Leach Date of Service: 05/04/25 Procedure(s): US OB growth Accession Number(s): [id number] cc: Rossana Leach; [place] [address] Patient Name: VIMAL FUNES MRN: [id number] date: 2000 Sex: F Assigned Patient Location: [facility] Current Patient Location: [facility] Accession/Order Number: [id number] Exam Date: 05/04/2025 12:06 Report Date: 05/04/2025 12:08 At the request of: ROSSANA LEACH Procedure: US OB growth Growth ultrasound. Reason for exam: Gestational diabetes. COMPARISON: Ultrasound 03/08/2025. TECHNIQUE: Transabdominal imaging of the gravid uterus was obtained. FINDINGS: Single live intrauterine measuring 26 weeks 3 days by anatomic measurements. Head circumference is less than 3rd percentile. Abdominal circumference is at the 20th percentile. DANYA is normal at 12.38cm. Estimated weight is 1054 g which is at the 5th percentile. Fetalheart rate measures 150 bpm. US/US OB growth IMPRESSION: Single live intrauterine measuring 26 weeks 3 daysby anatomic measurements. Low percentile head circumference and estimatedfetal weight. Impression dictated by: Bulmaro Arias Jr., D.O. 05/04/2025 12:08 PM Dictation Location: [employer] Electronically authenticated by: [id number] Y Date: 2:08 Dictated By: Bulmaro Arias M.D. Signed By:05/04/25 1211 DD/ 1208 TD/TT: Boat Puller: Rossana ROSENBERGISYPROSPER IMAGING Final Result * (ABNORMAL) TBH CREATININE (05/04/2025 7:23 AM EDT) CREATININE 0.37(L) 0.55 - 1.02 mg/dL TBH TBH EGFR-AF PALESTINIAN >60 >=60 mL/min/1.7 3m 2 TBH TBH EGFR-NON AF PALESTINIAN >60 >=60 mL/min/1.7 3m 2 TBH 05/04/2025 7:23 AM EDT 05/04/2025 7:30 AM EDT Narrative CLINISYNC - 05/04/2025 8:21 AM EDT us Rossana BISWAS CLINISYNC Final Result Performing Organization Address City/[facility]/ZIP Co de Phone Number * (ABNORMAL) GLUCOSE TOLERANCE 3 HOUR (05/04/2025 7:23 AM EDT) GLUCOSE TOLERANCE 3 HOUR (H) mg/dL TBH Comment: GLU FAST 108H (<95) Col: 05/04/25 0723 GLU 1HR 234H (<180) Col: 05/04/25 0826 GLU 2HR 186H (<155) Col: 05/04/25 0927 GLU 3HR 133 (<140) Col: 05/04/25 1028 05/04/2025 7:23 AM EDT 05/04/2025 7:38 AM EDT Narrative CLINISYNC - 05/04/2025 10:50 AM EDT Rossana BISWAS LAB BLOOD ORDERABLES Final Resul t [facility] * [facility] PROTHROMBIN TIME INR W/O COUM (05/04/2025 7:23 AM EDT) PROTHROMBIN TIME 10.1 9.0 - 11.6 sec TBH TBH INR 0.95 TBH Comment: DESIRED INR: 2.0-3.0 CONDITIONS NOT LISTED BELOW 2.5-3.5 FOR PROSTHETIC HEART VALVE REPLACEMENT 2.5-3.5 RECURRENT THROMBOSIS 05/04/2025 7:23 AM EDT 05/04/2025 7:30 AM EDT Narrative CLINISYNC - 05/04/2025 8:04 AM EDT us Rossana ORR Final Result Performing Organization Address [facility] de Phone Number [facility] * [facility] AST (05/04/2025 7:23 AM EDT) ASPARTATE AMINO TRANSFERASE 23 15 - 37 U/L [facility] 05/04/2025 7:23 AM EDT 05/04/2025 7:30 AM EDT Narrative CLINISYNC - 05/04/2025 8:21 AM EDT us Rossana ORR Final Result Performing Organization Address [facility] de Phone Number [facility] * [facility] APTT (05/04/2025 7:23 AM EDT) PARTIAL THROMBOPLASTIN TIME 25.7 22.3 - 36.2 sec [facility] 05/04/2025 7:23 AM EDT 05/04/2025 7:30 AM EDT Narrative CLINISYNC - 05/04/2025 8:04 AM EDT Rossana ORR Final Result Performing Organization Address [facility] de Phone Number [facility] * ALL URIC ACID (05/04/2025 7:23 AM EDT) URIC ACID 3.7 2.6 - 6.0 mg/dL [facility] 05/04/2025 7:23 AM EDT 05/04/2025 7:30 AM EDT Narrative CLINISYNC - 05/04/2025 8:21 AM EDT us Rossana BISWAS CLINISYNC Final Result CLINISYNC TBH * ALL LDH (05/04/2025 7:23 AM EDT) LACTATE DEHYDROGENASE 163 81 - 234 U/L TB 05/04/2025 7:23 AM EDT 05/04/2025 7:30 AM EDT Narrative CLINISYNC - 05/04/2025 8:21 AM EDT Rossana BISWAS CLINISYNC Final Result CLINISYNC TB * (ABNORMAL) ALL CBC WITH AUTO DIFF (05/04/2025 7:23 AM EDT) Only the most recent of2 resultswithin the time period is included. Pathologist [facility] TB WBC 12.5(H) 4.0 - 11.0 10 3/uL TBH TBH RBC 4.29 4.20 - 5.40 10 6/uL TBH TBH HGB 13.7 12.0 - 16.0 g/dL TB TB HCT 39.5 36.0 - 48.0 % TBH TBH MCV 92.1 81.0 - 99.0 fL TBH TBH MCH 31.9 26.7 - 34.0 pg TBH TB MCHC 34.7 29.9 - 35.2 g/dL TB TBH RDW 12.7 11.0 - 15.0 % [...] Narrative CLINISYNC - 05/04/2025 7:43 AM EDT Rossana BISWAS CLINISYNC Final Result [facility] * ALL BUN (05/04/2025 7:23 AM EDT) BLOOD UREA NITROGEN 8.0 7.0 - 18.0 mg/dL TB 05/04/2025 7:23 AM EDT 05/04/2025 7:30 AM EDT Narrative CLINISYNC - 05/04/2025 8:21 AM EDT Rossana ROSENBERGISYPROSPER Final Result Performing Organization Address City/[facility]/ZIP Co de Phone Number [facility] * (ABNORMAL) POCT urinalysis dipstick manually resulted (04/30/2025 11:33 AM EDT) Only the most recent of5 resultswithin the time period is included. Color, [...] EDT) GLUCOSE 1 HOUR 171(H) <130 mg/dL TB 04/27/2025 10:0 5 AM EDT 04/27/2025 10:06 AM EDT Narrative CLINISYNC - 04/27/2025 10:45 AM EDT Rossana BISWAS LAB BLOOD ORDERABLES Final Resul t * US OB INCOMPLETE ANATOMY (03/25/2025 8:25 AM EDT) Anatomical Region Laterality Modality Other 03/25/2025 8:25 AM EDT Narrative 03/25/2025 8:27 AM EDT [address] [address] Ultrasound Report Signed Patient: VIMAL FUNES MR#: [id number] : 2000 Acct:[id number] Age/Sex: 24 / F ADM Date: 03/23/25 Loc: US Attending Dr: Mackenzie Rodriguez D.O. Ordering Physician: Mackenzie Rodriguez D.O. Date of Service: 03/23/25 Procedure(s): US OB incomplete anatomy Accession Number(s): [id number] cc: LUIS SEE ; Mackenzie Rodriguez D.O. [address] [address] Patient Name: VIMAL FUNES MRN: [facility]:[id number] date: 2000 Sex: F Assigned Patient Location: US Current Patient Location: US Accession/Order Number: [id number] Exam Date: 03/25/2025 08:23 Report Date: 03/25/2025 [...] Brown M.D. 03/25/2025 8:25 AM Dictation Location: [place] [address] Electronically authenticated by: [id number] Y Date: 03/25/2025 08:25 Dictated By: Meghana Brown M.D. Signed By: 03/25/25826 DD/ 4 TD/TT: Boat Puller: Procedure Note Radiology, Radiologist, MD - 03/25/2025 [place] [address] Ultrasound Report Signed Patient: VIMAL FUNES MMR#: [id number] : 2000Acct:[id number] Age/Sex: 24 / FADM Date: 03/23/25 Loc: US Attending Dr: Mackenzie Rodriguez D.O. Ordering Physician: Mackenzie Rodriguez D.O. Date of Service: 03/23/25 Procedure(s): US OB incomplete anatomy Accession Number(s): [id number] cc: LUIS SEE ; Mackenzie Rodriguez D.O. [place] [id number] Patient Name: VIMAL FUNES MRN: [id number] date: 2000 Sex: F Assigned Patient Location: Current Patient Location: US Accession/Order Number: [id number] Exam Date: 03/25/2025 08:23 Report Date: 03/25/2025 [...] Brown M.D. 03/25/2025 8:25 AM Dictation Location: [place] [address] Electronically authenticated by: [id number] Y Date: 508:25 Dictated By: Meghana Brown M.D. Signed By:03/25/25826 DD/ 4 TD/TT: Boat Puller: us Mackenzie Rodriguez DO CLIN[facility] IMAGING Final Result * US OB CERVICAL LENGTH (03/08/2025 8:36 PM EDT) Anatomical Region Laterality Modality Other 03/08/2025 8:36 PM EDT Narrative 03/08/2025 8:38 [place] [address] Ultrasound Report Signed Patient: VIMAL FUNES MR#: [id number] : 2000 Acct:[id number] Age/Sex: 24 / F ADM Date: 03/08/25 Loc: US Attending Dr: Mackenzie Rodriguez D.O. Ordering Physician: Mackenzie Rodriguez D.O. Date of Service: 03/08/25 Procedure(s): US OB cervical length Accession Number(s): [id number] cc: LUIS SEE ; Mackenzie Rodriguez D.O. The [place] [id number] Patient Name: VIMAL FUNES MRN: [id number] date: 2000 Sex: F Assigned Patient Location: US Current Patient Location: US Accession/Order Number: [id number] Exam Date: 03/08/2025 20:31 Report Date: 03/08/2025 [...] Knapp M.D. 03/08/2025 8:36 PM Dictation Location: [employer] Electronically authenticated by: [id number] Y Date: 03/08/2025 20:36 Dictated By: Shivam Knapp D.O. Signed By: 03/08/252037 DD/ 35 TD/TT: Boat Puller: Procedure Note Radiology, Radiologist, - 03/08/2025 [place] [address] Ultrasound Report Signed Patient: VIMAL FUNES MMR#: [id number] : 2000Acct:[id number] Age/Sex: 24 / FADM Date: 03/08/25 Loc: US Attending Dr: Mackenzie Rodriguez D.O. Ordering Physician: Mackenzie Rodriguez D.O. Date of Service: 03/08/25 Procedure(s): US OB cervical length Accession Number(s): [id number] cc: LUIS SEE ; Mackenzie Rodriguez D.O. [place] [id number] Patient Name: VIMAL FUNES MRN: [id number] date: 2000 Sex: F Assigned Patient Location: US Current Patient Location: US Accession/Order Number: [id number] Exam Date: 03/08/2025 20:31 Report Date: 03/08/2025 [...] Knapp M.D. 03/08/2025 8:36 PM Dictation Location: [employer] Electronically authenticated by: [id number] Y Date: 0:36 Dictated By: Shivam Knapp D.O. Signed By:03/08/252037 DD/ 35 TD/TT: Boat Puller: us Mackenzie Rodriguez DO CLINISYNC IMAGING Final Result * US OB ANATOMY (03/08/2025 8:36 PM EDT) Anatomical Region Laterality Modality Other 03/08/2025 8:36 PM EDT Narrative 03/08/2025 8:38 [place] [address] Ultrasound Report Signed Patient: VIMAL FUNES MR#: [id number] : 2000 Acct:[id number] Age/Sex: 24 / F ADM Date: 03/08/25 Loc: US Attending Dr: Mackenzie Rodriguez D.O. Ordering Physician: Mackenzie Rodriguez D.O. Date of Service: 03/08/25 Procedure(s): US OB anatomy Accession Number(s): [id number] cc: LUIS SEE ; Mackenzie Rodriguez D.O. [place] [id number] Patient Name: VIMAL FUNES MRN: [id number] date: 2000 Sex: F Assigned Patient Location: US Current Patient Location: US Accession/Order Number: [id number] Exam Date: 03/08/2025 20:31 Report Date: 03/08/2025 [...] Knapp M.D. 03/08/2025 8:36 PM Dictation Location: [employer] Electronically authenticated by: [id number] Y Date: 03/08/2025 20:36 Dictated By: Shivam Knapp D.O. Signed By: 03/08/252037 DD/ 35 TD/TT: Boat Puller: Procedure Note Radiology, Radiologist, MD - 03/08/2025 [place] [address] Ultrasound Report Signed Patient: VIMAL FUNES MMR#: [id number] : 2000Acct:[id number] Age/Sex: 24 / FADM Date: 03/08/25 Loc: US Attending Dr: Mackenzie Rodriguez D.O. Ordering Physician: Mackenzie Rodriguez D.O. Date of Service: 03/08/25 Procedure(s): US OB anatomy Accession Number(s): [id number] cc: LUIS SEE ; Mackenzie Rodriguez D.O. [place] [id number] Patient Name: VIMAL FUNES MRN: [id number] date: 2000 Sex: F Assigned Patient Location: US Current Patient Location: [place] Accession/Order Number: [id number] Exam Date: 03/08/2025 20:31 Report Date: 03/08/2025 [...] Knapp M.D. 03/08/2025 8:36 PM Dictation Location: [employer] Electronically authenticated by: [id number] Y Date: 0:36 Dictated By: Shivam Knapp D.O. Signed By:03/08/252037 DD/ 35 TD/TT: Boat Puller: Mackenzie Michael DO [facility] Final Result * RECURRENT VAGINITIS (HTRX) (02/20/2025 4:33 PM EDT) ATOPOBIUM VAGINAE 0.000 19.961 - 24.689 ppm 02/22/2025 6:32 AM EDT [facility] ATOPOBIUM VAGINAE Not Detected 19.961 - 24.689 ppm 02/22/2025 6:32 AM EDT [facility] BVAB 2,3 (BACTERIAL VAGINOSIS ASSOCIATED BACTERIA 2, 3); MOBILUNCUS SPP 0.000 19.961 - 24.689 ppm 02/22/2025 6:32 AM EDT [facility] BVAB 2,3 (BACTERIAL VAGINOSIS ASSOCIATED BACTERIA 2, 3); MOBILUNCUS SPP Not Detected 19.961 - 24.689 ppm 02/22/2025 6:32 AM EDT [facility] SIMEON ALBICANS, PARAPSILOSIS, TROPICALIS 0.000 19.961 - 30.770 ppm 02/22/2025 6:32 AM EDT [facility] SIMEON ALBICANS, PARAPSILOSIS, TROPICALIS Not Detected 19.961 - 30.770 ppm 02/22/2025 6:32 AM EDT [facility] SIMEON GLABRATA 0.000 23.000 - 32.138 ppm 02/22/2025 6:32 AM EDT [facility] SIMEON GLABRATA Not Detected 23.000 - 32.138 ppm 02/22/2025 6:32 AM EDT [facility] SIMEON KRUSEI 0.000 23.000 - 32.271 ppm 02/22/2025 6:32 AM EDT [facility] SIMEON KRUSEI Not Detected 23.000 - 32.271 ppm 02/22/2025 6:32 AM EDT [facility] CHLAMYDIA TRACHOMATIS 0.000 23.000 - 31.467 ppm 02/22/2025 6:32 AM EDT [facility] CHLAMYDIA TRACHOMATIS Not Detected 23.000 - 31.467 ppm 02/22/2025 6:32 AM EDT [facility] GARDNERELLA VAGINALIS 0.000 19.961 - 24.689 ppm 02/22/2025 6:32 AM EDT [facility] GARDNERELLA VAGINALIS Not Detected 19.961 - 24.689 ppm 02/22/2025 6:32 AM EDT [facility] MEGASPHAERA (TYPES 1, 2) 0.000 19.961 - 24.689 ppm 02/22/2025 6:32 AM EDT [facility] MEGASPHAERA (TYPES 1, 2) Not Detected 19.961 - 24.689 ppm 02/22/2025 6:32 AM EDT [facility] NEISSERIA GONORRHOEAE 0.000 23.000 - 32.117 ppm 02/22/2025 6:32 AM EDT [facility] NEISSERIA GONORRHOEAE Not Detected 23.000 - 32.117 ppm 02/22/2025 6:32 AM EDT [facility] TRICHOMONAS VAGINALIS 0.000 23.000 - 32.119 ppm 02/22/2025 6:32 AM EDT [facility] TRICHOMONAS VAGINALIS Not Detected 23.000 - 32.119 ppm 02/22/2025 6:32 AM EDT [facility] MYCOPLASMA GENITALIUM 0.000 19.961 - 24.689 ppm 02/22/2025 6:32 AM EDT [facility] MYCOPLASMA GENITALIUM Not Detected 19.961 - 24.689 ppm 02/22/2025 6:32 AM EDT [facility] Tissue 02/20/2025 4:33 PM EDT 02/22/2025 1:53 AM EDT Rossana BISWAS LAB BLOOD ORDERABLES Final Resul t [facility] [address] [place] [address] * URINARY TRACT INFECTION (HTRX) (02/20/2025 4:30 PM EDT) ACINETOBACTER BAUMANII 0.000 19.961 - 24.689 ppm 02/22/2025 6:52 AM EDT [facility] ACINETOBACTER BAUMANII Not Detected 19.961 - 24.689 ppm 02/22/2025 6:52 AM EDT [facility] CITROBACTER FREUNDII 0.000 23.000 - 31.881 ppm 02/22/2025 6:52 AM EDT [facility] CITROBACTER FREUNDII Not Detected 23.000 - 31.881 ppm 02/22/2025 6:52 AM EDT [facility] ENTEROBACTER AEROGENES, CLOACAE 0.000 23.000 - 31.535 ppm 02/22/2025 6:52 AM EDT [facility] ENTEROBACTER AEROGENES, CLOACAE Not Detected 23.000 - 31.535 ppm 02/22/2025 6:52 AM EDT [facility] ENTEROCOCCUS FAECALIS, FAECIUM 0.000 26.000 - 31.575 ppm 02/22/2025 6:52 AM EDT [facility] ENTEROCOCCUS FAECALIS, FAECIUM Not Detected 26.000 - 31.575 ppm 02/22/2025 6:52 AM EDT [facility] ESCHERICHIA COLI 0.000 23.000 - 28.500 ppm 02/22/2025 6:52 AM EDT [facility] ESCHERICHIA COLI Not Detected 23.000 - 28.500 ppm 02/22/2025 6:52 AM EDT [facility] KLEBSIELLA PNEUMONIAE, OXYTOCA 0.000 23.000 - 30.500 ppm 02/22/2025 6:52 AM EDT [facility] KLEBSIELLA PNEUMONIAE, OXYTOCA Not Detected 23.000 - 30.500 ppm 02/22/2025 6:52 AM EDT [facility] MORGANELLA MORGANII 0.000 19.961 - 24.689 ppm 02/22/2025 6:52 AM EDT [facility] MORGANELLA MORGANII Not Detected 19.961 - 24.689 ppm 02/22/2025 6:52 AM EDT [facility] PROTEUS MIRABILIS, VULGARIS 0.000 23.000 - 28.500 ppm 02/22/2025 6:52 AM EDT [facility] PROTEUS MIRABILIS, VULGARIS Not Detected 23.000 - 28.500 ppm 02/22/2025 6:52 AM EDT [facility] PSEUDOMONAS AERUGINOSA 0.000 23.000 - 28.500 ppm 02/22/2025 6:52 AM EDT [facility] PSEUDOMONAS AERUGINOSA Not Detected 23.000 - 28.500 ppm 02/22/2025 6:52 AM EDT [facility] STAPHYLOCOCCUS AUREUS 0.000 26.000 - 30.902 ppm 02/22/2025 6:52 AM EDT [facility] STAPHYLOCOCCUS AUREUS Not Detected 26.000 - 30.902 ppm 02/22/2025 6:52 AM EDT [facility] STREPTOCOCCUS AGALACTIAE (GROUP B STREP) 0.000 26.000 - 32.222 ppm 02/22/2025 6:52 AM EDT [facility] STREPTOCOCCUS AGALACTIAE (GROUP B STREP) Not Detected 26.000 - 32.222 ppm 02/22/2025 6:52 AM EDT [facility] SIMEON ALBICANS, PARAPSILOSIS, TROPICALIS 0.000 19.961 - 30.770 ppm 02/22/2025 6:52 AM EDT [facility] SIMEON ALBICANS, PARAPSILOSIS, TROPICALIS Not Detected 19.961 - 30.770 ppm 02/22/2025 6:52 AM EDT [facility] SIMEON GLABRATA 0.000 23.000 - 32.138 ppm 02/22/2025 6:52 AM EDT [facility] SIMEON GLABRATA Not Detected 23.000 - 32.138 ppm 02/22/2025 6:52 AM EDT [facility] SIMEON KRUSEI 0.000 23.000 - 32.271 ppm 02/22/2025 6:52 AM EDT [facility] SIMEON KRUSEI Not Detected 23.000 - 32.271 ppm 02/22/2025 6:52 AM EDT [facility] SERRATIA MARCESCENS 0.000 23.000 - 31.204 ppm 02/22/2025 6:52 AM EDT [facility] SERRATIA MARCESCENS Not Detected 23.000 - 31.204 ppm 02/22/2025 6:52 AM EDT [facility] STREPTOCOCCUS PYOGENES (GROUP A STREP) 0.000 19.961 - 24.689 ppm 02/22/2025 6:52 AM EDT [facility] STREPTOCOCCUS PYOGENES (GROUP A STREP) Not Detected 19.961 - 24.689 ppm 02/22/2025 6:52 AM EDT [facility] STAPHYLOCOCCUS EPIDERMIDIS, HAEMOLYTICUS, LUGDUNENSIS, SAPROPHYTICUS (URINA 0.000 19.961 - 24.689 ppm 02/22/2025 6:52 AM EDT [facility] STAPHYLOCOCCUS EPIDERMIDIS, HAEMOLYTICUS, LUGDUNENSIS, SAPROPHYTICUS (URINA Not Detected 19.961 - 24.689 ppm 02/22/2025 6:52 AM EDT [facility] STAPHYLOCOCCUS EPIDERMIDIS, HAEMOLYTICUS, LUGDUNENSIS, SAPROPHYTICUS (URINA 0.000 19.961 - 24.689 ppm 02/22/2025 6:52 AM EDT [facility] STAPHYLOCOCCUS EPIDERMIDIS, HAEMOLYTICUS, LUGDUNENSIS, SAPROPHYTICUS (URINA Not Detected 19.961 - 24.689 ppm 02/22/2025 6:52 AM EDT [facility] Urine 02/20/2025 4:30 PM EDT 02/22/2025 1:52 AM EDT Rossana BISWAS LAB BLOOD ORDERABLES Final Resul t [facility] [address] [place] [address] * IGP,APTIMA HPV,AGE GDLN (02/20/2025 3:50 PM EDT) AGE GDLN ACOG TESTING Note . [facility] Comment: TESTS RESULT FLAG UNITS REF RANGE LAB Clinician Provided Cytology Information Source.............Endocervix No. of containers..01 ThinPrep Vial Age Algo ACOG Yris... FLAG LEGEND: L-Low Normal,H-High Normal,LL-Alert Low,HH-Alert High <-Panic Low,>-Panic High,A-Abnormal,AA-Critical Abnormal Performed at: 01 =[facility] [place] [address] Jenise Byrne MD, IGP, RFX APTIMA HPV ASCU Note . [facility] Comment: TESTS RESULT FLAG UNITS REF RANGE LAB DIAGNOSIS: 02 NEGATIVE FOR INTRAEPITHELIAL LESION OR MALIGNANCY. Specimen adequacy: 02 Satisfactory for evaluation. Endocervical and/or squamous metaplastic cells (endocervical component) are present. Performed by: Hussein Alvarez, Senior Naval Parachutist ([facility]) . 02 Note: Note 02 The [...] <-Panic Low,>-Panic High,A-Abnormal,AA-Critical Abnormal Performed at: [address] [address] Jenise Byrne MD, Performed at: =G - [facility] [address] [id number] Reinforcing Steel Machine Operator: Jenise Byrne MD, Phone: [phone] Performed at: - [facility] [id number] Reinforcing Steel Machine Operator: Jenise Byrne MD, Phone: [phone] 02/20/2025 3:50 PM EDT 02/20/2025 9:13 PM EDT Narrative [facility] - 02/23/2025 1:08 PM EDT [facility] Rossana BISWAS LAB BLOOD ORDERABLES Final Resul t Performing Organization Address [facility]/ZIP Co de Phone Number [facility] * Pap Smear (02/20/2025 12:00 AM EDT) Swab Cervical swab / Unknown Rossana BISWAS LAB CYTOLOGY ORDERABLES Final Re sult Performing Organization Address City/[facility]/ZIP Co de Phone Number EXTERNAL LAB from Last 3 Months Insurance [facility] [employer] MED[employer] Care Teams Polysomnographic Technologist Relationship Specialty Start Date End Date Unallocated, Noms Provider, [address] [facility] [place] [address] PCP - General Family Medicine 08/03/24
--- OUTSIDE RECORDS SUMMARY | 2025-05-08 17:02 | XMS_ITS | Encounter Summary ---
Author Organization [facility] Address [address] [place] [address] Care Team Providers Care Canoe Inspector Final Name Role Phone Vaishali Chaidez MD Primary Care Provider Bipin cheng Unallocated, Noms Provider Primary Care Provi krissy Encounter Details Date Type Department Care Team (Late st Contact Info) Description 06/29/2024 Clinisync Result Encounter [facility] External Department Unsolicited Mackenzie Rodriguez, DO [address] [place], [place] [id number] Social History Tobacco Use Types Packs/Day Years [...] Routine [facility]BG[facility] [address] [place] [phone] Mackenzie Rodriguez DO [address] [place] [address] documented as of this encounter Procedures Procedure Name Priority Date/Time Associated Diagnosis Comments US OB TRANSVAGINAL 06/29/2024 9: 11 AM EDT documented in this encounter Results * US OB TRANSVAGINAL (06/29/2024 9:11 AM EDT) Anatomical Region Laterality Modality Other 06/29/2024 9:11 AM EDT Narrative 06/29/2024 9:14 [place] [address] Ultrasound Report Signed Patient: Vimal Pizano MR#: [id number] : 2000 Acct:[id number] Age/Sex: 24 / F ADM Date: 06/29/24 Loc: [facility] Attending Dr: Mackenzie Rodriguez D.O. Ordering Physician: Mackenzie Rodriguez D.O. Date of Service: 06/29/24 Procedure(s): US OB transvaginal Accession Number(s): [id number] cc: Mackenzie Rodriguez D.O.; VAISHALI CHAIDEZ [place] [address] Patient Name: VIMAL PIZANO MRN: [id number] date: 2000 Sex: F Assigned Patient Location: [facility] Current Patient Location: [facility] Accession/Order Number: [id number] Exam Date: 06/29/2024 08:37 Report Date: 06/29/2024 [...] M.D. Signed By: 06/29/24913 DD/ 0 TD/TT: [employer]: Procedure Note Radiology, Radiologist, MD - 06/29/2024 [place] [address] Ultrasound Report Signed Patient: Vimal Pizano MMR#: [id number] : 2000Acct:[id number] Age/Sex: 24 / FADM Date: 06/29/24 Loc: [facility] Attending Dr: Mackenzie Rodriguez D.O. Ordering Physician: Mackenzie Rodriguez D.O. Date of Service: 06/29/24 Procedure(s): US OB transvaginal Accession Number(s): [id number] cc: Mackenzie Rodriguez D.O.; VAISHALI CHAIDEZ [place] [address] Patient Name: VIMAL PIZANO MRN: [id number] date: 2000 Sex: F Assigned Patient Location: [facility] Current Patient Location: [facility] Accession/Order Number: [id number] Exam Date: 06/29/2024 08:37 Report Date: 06/29/2024 [...] Herrera M.D. Signed By:06/29/24913 DD/ 0 TD/TT: [employer]: us Mackenzie Michael DO [facility] Final Result documented in this encounter Visit Diagnoses Not on filedocumented in this encounter Care Teams Canoe Inspector Final Relationship Specialty Start Date End Date Vaishali Chaidez MD [address] [place] [address] PCP - General Family Medicine 02/04/23 08/02/24 Unallocated, Noms Provider, [address] [place] [address] PCP - General Family Medicine 08/03/24 documented as of this encounter
--- OUTSIDE RECORDS SUMMARY | 2025-05-08 17:02 | XMS_ITS | Encounter Summary ---
Author Organization [facility] Address [address] [place] [address] Care Team Providers Care Validation Leader Name Role Phone Unallocated, Noms Provider Primary Care Provi krissy Encounter Details Date Type Department Care Team (Late Contact Info) Description 04/25/2025 Bamboo flowsheet [facility]JUN PANG [address] [facility] [facility] [facility] [place] [address] Rossana Ramos PA [address] [place], [facility] Social History Tobacco Use Types Packs/Day [...] PM EDT Routine [facility] Rafia PANG [address] [place] [address] Michael, Jose, [address] [place]ué [place] [address] documented as of this encounter Visit Diagnoses Not on filedocumented in this encounter Care Teams Validation Leader Relationship Specialty Start Date End Date Unallocated, Noms Provider, [place] [address] PCP - General Family Medicine 08/03/24 documented as of this encounter
--- OUTSIDE RECORDS SUMMARY | 2025-05-08 17:02 | XMS_ITS | Encounter Summary ---
Author Organization [facility] Address [address] [place] [address] Care Team Providers Care Hr Internship Name Role Phone Unallocated, Noms Provider Primary Care Provi krissy Encounter Details Date Type Department Care Team (Late st Contact Info) Description 08/10/2024 Abstract ARJUN PANG [facility] [place] [address] Jose Rodriguez DO [address] [place], [place] [address] Social History Tobacco Use Types Packs/Day Years [...] 05/14/2025 2:40 PM EDT Routine ARJUN PANG [facility] [place] [address] Jose Rodriguez DO [address] [place], [facility]11 documented as of this encounter Visit Diagnoses Not on filedocumented in this encounter Care Teams Hr Internship Relationship Specialty Start Date End Date Unallocated, Noms Provider, [address] [place] [address] PCP - General Family Medicine 08/03/24 documented as of this encounter
--- OUTSIDE RECORDS SUMMARY | 2025-05-08 17:02 | XMS_ITS | Encounter Summary ---
Author Organization [facility] Address [address] [place] [address] Care Team Providers Care Insole Buffer Name Role Phone Unallocated, Noms Provider Primary Care Provi krissy Encounter Details Date Type Department Care Team (Late st Contact Info) Description 05/07/2025 Results Follow-Up ARJUN [place] OBGYKeegan [address] [facility] [address] [place] [address] Glenna Butler LPN [address] [place] [address] Social History Tobacco Use Types [...] Encounter Note - Glenna Butler LPN - 05/07/2025 9:08 AM EDT Pt notified and supplies sent in documented in this encounter Plan of Treatment Upcoming Encounters Date Type Department Care Team (Late st Contact Info) Description 05/14/2025 2:40 PM EDT Routine NOMMay [place] OBG[facility] [address] [place] [address] Jose Rodriguez DO [address] [place] [address] documented as of this encounter Visit Diagnoses Not on filedocumented in this encounter Care Teams Insole Buffer Relationship Specialty Start Date End Date Unallocated, Noms Gilda, [address] [place] [address] PCP - General Family Medicine 08/03/24 documented as of this encounter
--- OUTSIDE RECORDS SUMMARY | 2025-05-08 17:02 | XMS_ITS | Encounter Summary ---
Author Organization [facility] Address [address] [place] [address] Care Team Providers Care Senior Mobile Developer Name Role Phone Unallocated, Noms Provider Primary Care Provi krissy Encounter Details Date Type Department Care Team (Late st Contact Info) Description 03/06/2025 Orders Only ARJUN PANG [address] [place] [address] Kavitha Almanza MA Social History Tobacco [...] 2:40 PM EDT Routine NOMMay PANG [address] [place] [address] Jose Rodriguez DO [address] [place], [facility]11 documented as of this encounter Procedures [...] filedocumented in this encounter Care Teams Senior Mobile Developer Relationship Specialty Start Date End Date Unallocated, Noms Provider, [address] [place] [address] PCP - General Family Medicine 08/03/24 documented as of this encounter
--- OUTSIDE RECORDS SUMMARY | 2025-05-08 17:02 | XMS_ITS | Encounter Summary ---
Author Organization [facility] Address [address] [place] [address] Care Team Providers Care Paper Products Inspector Name Role Phone Unallocated, Noms Provider Primary Care Provi krissy Encounter Details Date Type Department Care Team (Late st Contact Info) Description 05/04/2025 Clinisync Result Encounter [facility] External Department Unsolicited Collin Leach PA [address] [place], [facility]11 Social History Tobacco Use Types Packs/Day [...] PM EDT Routine [facility] [address] [place] [phone] Jose Rodriguez DO [address] [place], [facility]11 documented as of this encounter Procedures Procedure Name Priority Date/Time Associated Diagnosis Comments US OB GROWTH 05/04/2025 12:08 PM EDT documented in this encounter Results * US OB GROWTH (05/04/2025 12:08 PM EDT) Anatomical Region Laterality Modality Other 05/04/2025 12:0 8 PM EDT Narrative 05/04/2025 12:11 [place] [address] Ultrasound Report Signed Patient: VIMAL PIZANO MR#: [id number] : 2000 Acct:[id number] Age/Sex: 25 / F ADM Date: 05/04/25 Loc: [facility] 250-[address]: Collin Leach Ordering Physician: Collin Leach Date of Service: 05/04/25 Procedure(s): US OB growth Accession Number(s): [id number] cc: Collin Leach; LUIS SEE [place] [phone] Patient Name: VIMAL PIZANO MRN: [id number] date: 2000 Sex: F Assigned Patient Location: [facility] Current Patient Location: [facility] Accession/Order Number: [id number] Exam Date: 05/04/2025 12:06 Report Date: 05/04/2025 12:08 At the request of: COLLIN LEACH Procedure: US OB growth Growth ultrasound. [...] Jr., D.O. 05/04/2025 12:08 PM Dictation Location: [facility] Electronically authenticated by: [id number] Y Date: 05/04/2025 12:08 Dictated By: Bulmaro Arias M.D. Signed By: 05/04/25 1211 DD/ 1208 TD/TT: [employer] Manager: Procedure Note Radiology, Radiologist, MD - 05/04/2025 [place] [address] Ultrasound Report Signed Patient: VIMAL PIZANO MMR#: [id number] : 2000Acct:[id number] Age/Sex: 25 / FADM Date: 05/04/25 Loc: [facility] 250-[address]: Collin Leach Ordering Physician: Collin Leach Date of Service: 05/04/25 Procedure(s): US OB growth Accession Number(s): [id number] cc: Collin Leach; LU[place] [address] Patient Name: VIMAL PIZANO MRN: [id number] date: 2000 Sex: F Assigned Patient Location: [facility] Current Patient Location: [facility] Accession/Order Number: [id number] Exam Date: 05/04/2025 12:06 Report Date: 05/04/2025 12:08 At the request of: COLLIN LEACH Procedure: US OB growth Growth ultrasound. [...] Jr., D.O. 05/04/2025 12:08 PM Dictation Location: [place] [address] Electronically authenticated by: [id number] Y Date: 2:08 Dictated By: Bulmaro Arias M.D. Signed By:05/04/25 1211 DD/ 1208 TD/TT: [employer] Manager: us Collin BISWAS [facility] Final Result documented in this encounter Visit Diagnoses Not on filedocumented in this encounter Care Teams Paper Products Inspector Relationship Specialty Start Date End Date Unallocated, Noms Provider, [address] [place] [address] PCP - General Family Medicine 08/03/24 documented as of this encounter
--- OUTSIDE RECORDS SUMMARY | 2025-05-08 17:02 | XMS_ITS | Encounter Summary ---
Author Organization [facility] Address [address] [place] [address] Care Team Providers Care Health Care Consultant Name Role Phone Vaishali Zapata MD Primary Care Provider Bipin cheng Unallocated, Noms Provider Primary Care Provi krissy Encounter Details Date Type Department Care Team (Late st Contact Info) Description 06/28/2024 Abstract ARJUN PANG [address] [place] [address] Jose Rodriguez DO [address] [place], [place] [address] Social History Tobacco Use Types Packs/Day Years [...] 2:40 PM EDT Routine ARJUN PANG [address] [place] [address] Jose Rodriguez DO [address] [place], [facility]11 documented as of this encounter Visit Diagnoses Not on filedocumented in this encounter Care Teams Health Care Consultant Relationship Specialty Start Date End Date Vaishali Zapata MD [address] [place] [place] [address] PCP - General Family Medicine 02/04/23 08/02/24 Unallocated, Noms Provider, [address] [place] [address] PCP - General Family Medicine 08/03/24 documented as of this encounter
--- OUTSIDE RECORDS SUMMARY | 2025-05-08 17:02 | XMS_ITS | Encounter Summary ---
Author Organization [facility] Address [address] [place] [address] Care Team Providers Care Childcare Provider Name Role Phone Unallocated, Noms Provider Primary Care Provi krissy Encounter Details Date Type Department Care Team (Late st Contact Info) Description 08/10/2024 Abstract ARJUN PANG [facility] [place] [address] Jose Rodriguez DO [address] [place], [place] [address] Social History Tobacco Use Types Packs/Day Years [...] PM EDT Routine ARJUN PANG [facility] [place] [address] Jose Rodriguez DO [address] [place], [facility]11 documented as of this encounter Visit Diagnoses Not on filedocumented in this encounter Care Teams Childcare Provider Relationship Specialty Start Date End Date Unallocated, Noms Provider, [address] [place] [address] PCP - General Family Medicine 08/03/24 documented as of this encounter
--- OUTSIDE RECORDS SUMMARY | 2025-05-08 17:02 | XMS_ITS | Encounter Summary ---
Author Organization [facility] Address [address] [place] [address] Care Team Providers Care Chemical Engineering Professor Name Role Phone Vaishali Zapata MD Primary Care Provider Bipin cheng Unallocated, Noms Provider Primary Care Provi krissy Encounter Details Date Type Department Care Team (Late st Contact Info) Description 06/29/2024 Abstract ARJUN PANG [address] [place] [address] Jose Rodriguez DO [address] [place], [place] [address] Social History Tobacco Use Types Packs/Day Years [...] 2:40 PM EDT Routine ARJUN PANG [address] [place] [address] Jose Rodriguez DO [address] [place], [facility]11 documented as of this encounter Visit Diagnoses Not on filedocumented in this encounter Care Teams Chemical Engineering Professor Relationship Specialty Start Date End Date Vaishali Zapata MD [address] [place] [address] PCP - General Family Medicine 02/04/23 08/02/24 Unallocated, Noms Provider, [address] [place] [address] PCP - General Family Medicine 08/03/24 documented as of this encounter
--- OUTSIDE RECORDS SUMMARY | 2025-05-08 17:02 | XMS_ITS | Encounter Summary ---
Author Organization [facility] Address [address] [place] [address] Care Team Providers Care Quarter Lining Smoother Name Role Phone Unallocated, Noms Provider Primary Care Provi krissy Encounter Details Date Type Department Care Team (Late st Contact Info) Description 03/11/2025 Results Follow-Up [facility] [place] [facility] [address] [place] [address] Glenna Butler LPN [address] [place] [address] Social History Tobacco Use Types [...] PM EDT Routine [facility] [place] [facility] [address] [place] [id number] Jose Rodriguez DO [address] [place] [address] documented as of this encounter Visit Diagnoses Not on filedocumented in this encounter Care Teams Quarter Lining Smoother Relationship Specialty Start Date End Date Unallocated, Noms Gilda, [place] [address] PCP - General Family Medicine 08/03/24 documented as of this encounter
--- OUTSIDE RECORDS SUMMARY | 2025-05-08 17:02 | XMS_ITS | Patient Health Record ---
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 Name Role Phone Jennifer See Primary Care Provider [phone] Allergies No Known Allergies Results Component Value Reference Range Notes PREG ([facility]), URINE - IN OFFI CE Reviewed date:07/23/2024 08:22:00 AM Interpretation: Performing Lab: Notes/Report: PREG ([facility]), URINE - IN OFFICE + NEG - NEG Control Present + CBC AUTO DIFF Reviewed date:07/23/2024 08:22:00 AM Interpretation: Performing Lab: Notes/Report: [facility] , White Blood Count 10.6 4.0-11.0 10 [...] 3/uL Performing Lab: see note ML - [facility] LB DRUG SCREEN RAPID (URINE) Reviewed date:07/23/2024 08:22:00 AM Interpretation: Performing Lab: Notes/Report: REEFLEX IF POSITIVE [facility] , Cannabinoid Screen Urine NEGATIVE NEGATIVE Phencyclidine Screen Urine NEGATIVE NEGATIVE Cocaine Screen Urine NEGATIVE NEGATIVE Methamphetamines Screen Urine NEGATIVE NEGATIVE Opiate Screen Urine NEGATIVE NEGATIVE Amphetamine Screen Urine NEGATIVE NEGATIVE Benzodiazepines Screen Urine NEGATIVE NEGATIVE Tricyclic Antidepressant Urine NEGATIVE NEGATIVE Methadone Screen Urine NEGATIVE NEGATIVE Barbiturates Screen Urine NEGATIVE NEGATIVE Oxycodone Screen Urine NEGATIVE NEGATIVE Buprenorphine Screen Urine NEGATIVE NEGATIVE DRUG CLASS TEST SYSTEM CUT-OFF CONCENTRATIONS ARE FOLLOWS: AMP (Amphetamine): 500 ng/mL BAR (Barbiturates): 200 ng/mL BZO (Benzodiazepines): 150 ng/mL BUP (Buprenorphine): 10 ng/mL ALEXA (Cocaine): 150 ng/mL mAMP (Methamphetamine): 500 ng/mL MTD (Methadone): 200 ng/mL OPI (Opiates): 100 ng/mL OXY (Oxycodone): 100 ng/mL PCP (Phencyclidine): 25 ng/mL THC (Cannabinoids): 50 ng/mL TCA (Trycyclic Antidepressants): 300 ng/mL Performing Lab: see note ML - [facility] LB GLYCOHEMOGLOBIN A1C Reviewed date:07/23/2024 08:22:00 AM Interpretation: Performing Lab: Notes/Report: [facility] , Glycohemoglobin A1C 4.9 4.5-6.2 % ADA RECOMMENDED LIMIT 4.0 - 6.0 ADA THERAPEUTIC TARGET < 7.0 ACTION SUGGESTED > 7.0 Estimated Average Glucose 94 Performing Lab: see note ML - [facility] LB RUBELLA AB IGG Reviewed date:07/23/2024 08:22:00 AM Interpretation: Performing Lab: Notes/Report: [facility] , Rubella Antibodies, IgG 1.57 Immune > 0.99 index Non-immune <0.90 Equivocal 0.90 - 0.99 Immune >0.99 Performed at: [address] [id number] Manager Quality Improvement: Andrew Harris PhD, Phone: [phone] Performing Lab: see note [facility] LB Type and Screen Reviewed date:07/23/2024 08:22:00 AM Interpretation: Performing Lab: Notes/Report: [facility] , Blood Type A Positive Antibody Screen NEGATIVE HIV Ab/p24 Ag with Reflex Reviewed date:07/23/2024 08:22:00 AM Interpretation: Performing Lab: Notes/Report: [facility] , HIV Ab/p24 Ag Screen Non Reactive Non Reactive HIV-1/HIV-2 antibodies and HIV-1 p24 antigen were NOT detected. There is no laboratory evidence of HIV infection. HIV Negative Performed at: [address] [id number] Manager Quality Improvement: Andrew Harris PhD, Phone: [phone] Performing Lab: see note [facility] LB Rapid Plasma Reagin, Quant Reviewed date:07/23/2024 08:22:00 AM Interpretation: Performing Lab: Notes/Report: [facility] , Rapid Plasma Reagin, Quant Non Reactive NonRea<1:1 titer Please Note: This test does not meet current guidelines for screening and diagnosis of syphilis. This test is intended for following treatment response in patients being treated for syphilis infection. To screen for syphilis infection, a reflex cascade that includes both RPR and a treponema-specific assay should be utilized, such as Treponema pallidum (Syphilis) Screening Mcduffie (233658) or Rapid Plasma Reagin (RPR) Test With Reflex to Quantitative RPR and Confirmatory Treponema pallidum Antibodies (517219). Performed at: [address] [id number] Manager Quality Improvement: Andrew Harris PhD, Phone: [phone] Performing Lab: see note [facility] LB HCV Antibody RFX to Quant PC R Reviewed date:07/23/2024 08:22:00 AM Interpretation: Performing Lab: Notes/Report: [facility] , HCV Ab Non Reactive Non Reactive Interpretation: Comment . Not infected with HCV unless early or acute infection is suspected (which may be delayed in an immunocompromised individual), or other evidence exists to indicate HCV infection. Performing Lab: see note - [facility] HBsAg Screen Reviewed date:07/23/2024 08:22:00 AM Interpretation: Performing Lab: Notes/Report: [facility] , HBsAg Screen Negative Negative Performed at: [address] [id number] Manager Quality Improvement: Andrew Harris PhD, Phone: [phone] Performing Lab: see note [facility] LB Urine Culture, Routine Reviewed date:07/23/2024 08:22:00 AM Interpretation: Performing Lab: Notes/Report: [facility] , Urine Culture, Routine See Below For Report Urine Culture, Routine Urine Culture, Routine Mixed urogenital tami Urine Culture, Routine Urine Culture, Routine 10,000-25,000 col nan forming units per mL Urine Culture, Routine Urine Culture, Routine Performed at: [facility] Urine Culture, Routine Urine Culture, Routine [address] [place] [phone] Urine Culture, Routine Urine Culture, Routine Manager Quality Improvement: Riky Harris PhD, Phone: [phone] Urine Culture, Routine Performing Lab: see note [facility] LB SEE REPORT - [employer]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-specific 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 legend Box Test Reviewed date:07/23/2024 08:22:00 AM Interpretation: Performing Lab: Notes/Report: [place] [facility] , BOX Test Sent Out UNITY BOX Test Reference Lab UNITY BOX Test Date Sent 07/21/24 Performing Lab: see note [facility] LB CBC AUTO DIFF Reviewed date:08/03/2024 08:30:13 AM Interpretation: Performing Lab: Notes/Report: [facility] , White Blood Count 11.1 [...] Performing Lab: see note ML - [facility] LB PREG QUANT HCG Reviewed date:08/03/2024 08:30:13 AM Interpretation: Performing Lab: Notes/Report: [facility] , HCG Quantitative 1656 5-50 0.2-1 WEEK 50-500 1-2 WEEKS 100-5,000 2-3 WEEKS 500-10,000 3-4 WEEKS 1,000-50,000 4-5 WEEKS 10,000-100,000 5-6 WEEKS 15,000-200,000 6-8 WEEKS 10,000-100,000 2-3 MONTHS Performing Lab: see note ML - [facility] LB PROF 14(COMP METB) Reviewed date:08/03/2024 08:30:13 AM Interpretation: Performing Lab: Notes/Report: [facility] , Sodium 140 136-145 mmol/L Potassium 3.4 [...] 0.9 Performing Lab: see note ML - [facility] US OB transvaginal Reviewed date:08/03/2024 08:30:13 AM Interpretation: Performing Lab: Notes/Report: Source Facility: [place] [address] Ultrasound Report Signed Patient: VIMAL FUNES MR#: [id number] : 2000 Acct:[id number] Age/Sex: 24 / F ADM Date: 08/02/24 Loc: ER Attending Dr: Ordering Physician: Kishan Cosby Date of Service: 08/02/24 Procedure(s): US OB transvaginal Accession Number(s): [id number] cc: JENNIFER SEE ; Kishan Cosby [place] [address] Patient Name: VIMAL FUNES MRN: [id number] date: 2000 Sex: F Assigned Patient Location: ER Current Patient Location: ER Accession/Order Number: [id number] Exam Date: 08/02/2024 19:17 Report Date: 08/02/2024 [...] M.D. Signed By: 08/02/242126 DD/ 23 TD/TT: Commercial Relief Driver: [place] [address] Ultrasound Report Signed Patient: VIMAL FUNES MR#: [id number] : 2000 Acct:[id number] Age/Sex: 24 / F ADM Date: 08/02/24 Loc: ER Attending Dr: Ordering Physician: Kishan Cosby Date of Service: 08/02/24 Procedure(s): US OB transvaginal Accession Number(s): [id number] cc: JENNIFER SEE ; Kishan Cosby [place] [id number] Patient Name: VIMAL FUNES MRN: [id number] date: 2000 Sex: F Assigned Patient Location: ER Current Patient Location: ER Accession/Order Number: [id number] Exam Date: 19:17 Report Date: 08/02/2024 21:24 [...] M.D. Signed By: 08/02/242126 DD/ 23 TD/TT: Commercial Relief Driver: CBC AUTO DIFF Reviewed date:08/10/2024 08:58:56 AM Interpretation: Performing Lab: Notes/Report: [facility] , White Blood Count 8.9 4.0-11.0 10 [...] Performing Lab: see note ML - [facility] LB PREG QUANT HCG Reviewed date:08/10/2024 08:58:56 AM Interpretation: Performing Lab: Notes/Report: [facility] , HCG Quantitative 240 5-50 0.2-1 WEEK 50-500 1-2 WEEKS 100-5,000 2-3 WEEKS 500-10,000 3-4 WEEKS 1,000-50,000 4-5 WEEKS 10,000-100,000 5-6 WEEKS 15,000-200,000 6-8 WEEKS 10,000-100,000 2-3 MONTHS Performing Lab: see note ML - [facility] LB US OB transvaginal Reviewed date:08/10/2024 08:58:56 AM Interpretation: Performing Lab: Notes/Report: Source Facility: [facility] [place] [address] [place] [address] Ultrasound Report Signed Patient: VIMAL FUNES MR#: [id number] : 2000 Acct:[id number] Age/Sex: 24 / F ADM Date: 08/10/24 Loc: SURGOUT Attending Dr: Mackenzie Rodriguez D.O. Ordering Physician: Mackenzie Rodriguez D.O. Date of Service: 08/10/24 Procedure(s): US OB transvaginal Accession Number(s): [id number] cc: JENNIFER SEE ; Mackenzie Rodriguez D.O. The [place] [address] Patient Name: VIMAL FUNES MRN: [id number] date: 2000 Sex: F Assigned Patient Location: [facility] Current Patient Location: [facility] Accession/Order Number: [id number] Exam Date: 08/10/2024 08:10 Report Date: 08/10/2024 [...] M.D. Signed By: 08/10/24846 DD/ 3 TD/TT: Commercial Relief Driver: [place] [address] Ultrasound Report Signed Patient: VIMAL FUNES MR#: [id number] : 2000 Acct:[id number] Age/Sex: 24 / F ADM Date: 08/10/24 Loc: [facility] Attending Dr: Mackenzie Rodriguez D.O. Ordering Physician: Mackenzie Rodriguez D.O. Date of Service: 08/10/24 Procedure(s): US OB transvaginal Accession Number(s): [id number] cc: JENNIFER SEE ; Mackenzie Rodriguez D.O. The [place] [id number] Patient Name: VIMAL FUNES MRN: [id number] date: 2000 Sex: F Assigned Patient Location: [facility] Current Patient Location: [facility] Accession/Order Number: [id number] Exam Date: 08:10 Report Date: 08/10/2024 08:44 [...] M.D. Signed By: 08/10/24846 DD/ 3 TD/TT: Commercial Relief Driver: PREG QUANT HCG Reviewed date:08/20/2024 11:36:34 AM Interpretation: Performing Lab: Notes/Report: [facility] , HCG Quantitative 6 5-50 0.2-1 WEEK 50-500 1-2 WEEKS 100-5,000 2-3 WEEKS 500-10,000 3-4 WEEKS 1,000-50,000 4-5 WEEKS 10,000-100,000 5-6 WEEKS 15,000-200,000 6-8 WEEKS 10,000-100,000 2-3 MONTHS Performing Lab: see note - [facility] LB PREG QUANT HCG Reviewed date:11/20/2024 01:38:35 PM Interpretation: Performing Lab: Notes/Report: [facility] , HCG Quantitative 6254 5-50 0.2-1 WEEK 50-500 1-2 WEEKS 100-5,000 2-3 WEEKS 500-10,000 3-4 WEEKS 1,000-50,000 4-5 WEEKS 10,000-100,000 5-6 WEEKS 15,000-200,000 6-8 WEEKS 10,000-100,000 2-3 MONTHS Performing Lab: see note ML - [facility] LB PREG QUANT HCG Reviewed date:11/22/2024 08:59:16 AM Interpretation: Performing Lab: Notes/Report: [facility] , HCG Quantitative 89743 5-50 0.2-1 WEEK 50-500 1-2 WEEKS 100-5,000 2-3 WEEKS 500-10,000 3-4 WEEKS 1,000-50,000 4-5 WEEKS 10,000-100,000 5-6 WEEKS 15,000-200,000 6-8 WEEKS 10,000-100,000 2-3 MONTHS Performing Lab: see note ML - [facility] LB CBC AUTO DIFF Reviewed date:01/07/2025 01:05:16 PM Interpretation: Performing Lab: Notes/Report: [facility] , White Blood Count 9.2 4.0-11.0 10 [...] Performing Lab: see note ML - [facility] LB DRUG SCREEN RAPID (URINE) Reviewed date:01/07/2025 01:05:16 PM Interpretation: Performing Lab: Notes/Report: [facility] , Cannabinoid Screen Urine NEGATIVE NEGATIVE Phencyclidine Screen Urine NEGATIVE NEGATIVE Cocaine Screen Urine NEGATIVE NEGATIVE Methamphetamines Screen Urine NEGATIVE NEGATIVE Opiate Screen Urine NEGATIVE NEGATIVE Amphetamine Screen Urine NEGATIVE NEGATIVE Benzodiazepines Screen Urine NEGATIVE NEGATIVE Tricyclic Antidepressant Urine NEGATIVE NEGATIVE Methadone Screen Urine NEGATIVE NEGATIVE Barbiturates Screen Urine NEGATIVE NEGATIVE Oxycodone Screen Urine NEGATIVE NEGATIVE Buprenorphine Screen Urine NEGATIVE NEGATIVE DRUG CLASS TEST SYSTEM CUT-OFF CONCENTRATIONS ARE FOLLOWS: AMP (Amphetamine): 500 ng/mL BAR (Barbiturates): 200 ng/mL BZO (Benzodiazepines): 150 ng/mL BUP (Buprenorphine): 10 ng/mL ALEXA (Cocaine): 150 ng/mL mAMP (Methamphetamine): 500 ng/mL MTD (Methadone): 200 ng/mL OPI (Opiates): 100 ng/mL OXY (Oxycodone): 100 ng/mL PCP (Phencyclidine): 25 ng/mL THC (Cannabinoids): 50 ng/mL TCA (Trycyclic Antidepressants): 300 ng/mL Performing Lab: see note - [facility] LB GLYCOHEMOGLOBIN A1C Reviewed date:01/07/2025 01:05:16 PM Interpretation: Performing Lab: Notes/Report: [facility] , Glycohemoglobin A1C 5.0 4.5-6.2 % ADA RECOMMENDED LIMIT 4.0 - 6.0 ADA THERAPEUTIC TARGET < 7.0 ACTION SUGGESTED > 7.0 Estimated Average Glucose 97 Performing Lab: see note - [facility] LB RUBELLA AB IGG Reviewed date:01/07/2025 01:05:16 PM Interpretation: Performing Lab: Notes/Report: [facility] , Rubella Antibodies, IgG 1.57 Immune > 0.99 index Non-immune <0.90 Equivocal 0.90 - 0.99 Immune >0.99 Performed at: [address] [id number] Manager Quality Improvement: Andrew Harris PhD, Phone: [phone] Performing Lab: see note [facility] LB Type and Screen Reviewed date:01/07/2025 01:05:16 PM Interpretation: Performing Lab: Notes/Report: [facility] , Blood Type A Positive Antibody Screen NEGATIVE HIV Ab/p24 Ag with Reflex Reviewed date:01/07/2025 01:05:16 PM Interpretation: Performing Lab: Notes/Report: [facility] , HIV Ab/p24 Ag Screen Non Reactive Non Reactive HIV-1/HIV-2 antibodies and HIV-1 p24 antigen were NOT detected. There is no laboratory evidence of HIV infection. HIV Negative Performed at: [address] [id number] Manager Quality Improvement: Andrew Harris PhD, Phone: [phone] Performing Lab: see note [facility] LB Rapid Plasma Reagin, Quant Reviewed date:01/07/2025 01:05:16 PM Interpretation: Performing Lab: Notes/Report: [facility] , Rapid Plasma Reagin, Quant Non Reactive NonRea<1:1 titer Please Note: This test does not meet current guidelines for screening and diagnosis of syphilis. This test is intended for following treatment response in patients being treated for syphilis infection. To screen for syphilis infection, a reflex cascade that includes both RPR and a treponema-specific assay should be utilized, such as Treponema pallidum (Syphilis) Screening Mcduffie (941761) or Rapid Plasma Reagin (RPR) Test With Reflex to Quantitative RPR and Confirmatory Treponema pallidum Antibodies (961369). Performed at: [address] [id number] Manager Quality Improvement: Andrew Harris PhD, Phone: [phone] Performing Lab: see note [facility] LB HCV Antibody RFX to Quant PC R Reviewed date:01/07/2025 01:05:16 PM Interpretation: Performing Lab: Notes/Report: [facility] , HCV Ab Non Reactive Non Reactive Interpretation: Comment . Not infected with HCV unless early or acute infection is suspected (which may be delayed in an immunocompromised individual), or other evidence exists to indicate HCV infection. Performed at: [address] [id number] Manager Quality Improvement: Andrew Harris PhD, Phone: [phone] Performing Lab: see note [facility] LB HBsAg Screen Reviewed date:01/07/2025 01:05:16 PM Interpretation: Performing Lab: Notes/Report: [facility] , HBsAg Screen Negative Negative Performed at: - [facility] [address] [id number] Manager Quality Improvement: Andrew Harris PhD, Phone: [phone] Performing Lab: see note - [facility] LB Box Test Reviewed date:01/07/2025 01:05:16 PM Interpretation: Performing Lab: Notes/Report: [facility] , BOX Test Sent Out UNITY BOX Test Reference Lab UNITY BOX Test Date Sent 01-05-25 Performing Lab: see note - [facility] LB US OB cervical length Reviewed date:03/14/2025 10:39:54 AM Interpretation: Performing Lab: Notes/Report: Source Facility: [place] [address] Ultrasound Report Signed Patient: VIMAL FUNES MR#: [id number] : 2000 Acct:[id number] Age/Sex: 24 / F ADM Date: 03/08/25 Loc: US Attending Dr: Mackenzie Rodriguez D.O. Ordering Physician: Mackenzie Rodriguez D.O. Date of Service: 03/08/25 Procedure(s): US OB cervical length Accession Number(s): [id number] cc: JENNIFER SEE ; Mackenzie Rodriguez D.O. [place] [address] Patient Name: VIMAL FUNES MRN: [id number] date: 2000 Sex: F Assigned Patient Location: US Current Patient Location: US Accession/Order Number: [id number] Exam Date: 03/08/2025 20:31 Report Date: 03/08/2025 [...] Knapp M.D. 03/08/2025 8:36 PM Dictation Location: [facility] Electronically authenticated by: [id number] Y Date: 03/08/2025 20:36 Dictated By: Shivam Knapp D.O. Signed By: 03/08/252037 DD/ 35 TD/TT: Commercial Relief Driver: [place] [address] Ultrasound Report Signed Patient: VIMAL FUNES MR#: [id number] : 2000 Acct:[id number] Age/Sex: 24 / F ADM Date: 03/08/25 Loc: US Attending Dr: Mackenzie Rodriguez D.O. Ordering Physician: Mackenzie Rodriguez D.O. Date of Service: 03/08/25 Procedure(s): US OB cervical length Accession Number(s): [id number] cc: JENNIFER SEE ; Mackenzie Rodriguez D.O. [place] [address] Patient Name: VIMAL FUNES MRN: [id number] date: 2000 Sex: F Assigned Patient Location: US Current Patient Location: US Accession/Order Number: [id number] Exam Date: 03/08/2025 20:31 Report Date: 03/08/2025 [...] Knapp M.D. 03/08/2025 8:36 PM Dictation Location: [facility] Electronically authenticated by: [id number] Y Date: 03/08/2025 20:36 Dictated By: Shivam Knapp D.O. Signed By: 03/08/252037 DD/ 35 TD/TT: Commercial Relief Driver: US OB anatomy Reviewed date:03/14/2025 10:39:54 AM Interpretation: Performing Lab: Notes/Report: Source Facility: [place] [address] [place] [address] Ultrasound Report Signed Patient: VIMAL FUNES MR#: [id number] : 2000 Acct:[id number] Age/Sex: 24 / F ADM Date: 03/08/25 Loc: US Attending Dr: Mackenzie Rodriguez D.O. Ordering Physician: Mackenzie Rodriguez D.O. Date of Service: 03/08/25 Procedure(s): US OB anatomy Accession Number(s): [id number] cc: JENNIFER SEE ; Mackenzie Rodriguez D.O. The [address] [address] Patient Name: VIMAL FUNES MRN: [id number] date: 2000 Sex: F Assigned Patient Location: US Current Patient Location: Accession/Order Number: [id number] Exam Date: 03/08/2025 20:31 Report Date: 03/08/2025 [...] Knapp M.D. 03/08/2025 8:36 PM Dictation Location: [place] [address] Electronically authenticated by: [id number] Y Date: 03/08/2025 20:36 Dictated By: Shivam Knapp D.O. Signed By: 03/08/252037 DD/ 35 TD/TT: Commercial Relief Driver: [place] [address] Ultrasound Report Signed Patient: VIMAL FUNES MR#: [id number] : 2000 Acct:[id number] Age/Sex: 24 / F ADM Date: 03/08/25 Loc: US Attending Dr: Mackenzie Rodriguez D.O. Ordering Physician: Mackenzie Rodriguez D.O. Date of Service: 03/08/25 Procedure(s): US OB anatomy Accession Number(s): [id number] cc: JENNIFER SEE ; Mackenzie Rodriguez D.O. [place] [id number] Patient Name: VIMAL FUNES MRN: [employer]:[id number] date: 2000 Sex: F Assigned Patient Location: US Current Patient Location: US Accession/Order Number: [id number] Exam Date: 03/08/2025 20:31 Report Date: 03/08/2025 [...] Knapp M.D. 03/08/2025 8:36 PM Dictation Location: [facility] Electronically authenticated by: [id number] Y Date: 03/08/2025 20:36 Dictated By: Shivam Knapp D.O. Signed By: 03/08/252037 DD/ 35 TD/TT: Commercial Relief Driver: US OB incomplete anatomy Reviewed date:03/25/2025 09:01:39 AM Interpretation: Performing Lab: Notes/Report: Source Facility: [place] [address] Ultrasound Report Signed Patient: VIMAL FUNES MR#: [id number] : 2000 Acct:[id number] Age/Sex: 24 / F ADM Date: 03/23/25 Loc: US Attending Dr: Mackenzie Rodriguez D.O. Ordering Physician: Mackenzie Rodriguez D.O. Date of Service: 03/23/25 Procedure(s): US OB incomplete anatomy Accession Number(s): [id number] cc: JENNIFER SEE ; Mackenzie Rodriguez D.O. [place] [address] Patient Name: VIMAL FUNES MRN: [id number] date: 2000 Sex: F Assigned Patient Location: Current Patient Location: US Accession/Order Number: [id number] Exam Date: 03/25/2025 08:23 Report Date: 03/25/2025 [...] Brown M.D. 03/25/2025 8:25 AM Dictation Location: [place] [address] Electronically authenticated by: [id number] Y Date: 03/25/2025 08:25 Dictated By: Meghana Brown M.D. Signed By: 03/25/25826 DD/ 4 TD/TT: Commercial Relief Driver: [place] [address] Ultrasound Report Signed Patient: VIMAL FUNES MR#: [id number] : 2000 Acct:[id number] Age/Sex: 24 / F ADM Date: 03/23/25 Loc: US Attending Dr: Mackenzie Rodriguez D.O. Ordering Physician: Mackenzie Rodriguez D.O. Date of Service: 03/23/25 Procedure(s): US OB incomplete anatomy Accession Number(s): [id number] cc: JENNIFER SEE ; Mackenzie Rodriguez D.O. [place] [address] Patient Name: VIMAL FUNES MRN: [id number] date: 2000 Sex: F Assigned Patient Location: US Current Patient Location: US Accession/Order Number: [id number] Exam Date: 03/25/2025 08:23 Report Date: 03/25/2025 [...] Brown M.D. 03/25/2025 8:25 AM Dictation Location: [place] [address] Electronically authenticated by: [id number] Y Date: 03/25/2025 08:25 Dictated By: Meghana Brown M.D. Signed By: 03/25/25826 DD/ TD/TT: Commercial Relief Driver: CBC AUTO DIFF Reviewed date:04/29/2025 09:37:12 AM Interpretation: Performing Lab: Notes/Report: [facility] , White Blood Count 12.5 4.0-11.0 10 [...] Performing Lab: see note ML - [facility] LB Glucose 1 Hour Reviewed date:04/29/2025 09:37:12 AM Interpretation: Performing Lab: Notes/Report: [facility] , Glucose 1 Hour 171 <130 mg/dL Performing Lab: see note ML - [facility] LB BUN Reviewed date:05/06/2025 10:03:33 AM Interpretation: Performing Lab: Notes/Report: [facility] , Blood Urea Nitrogen 8.0 7.0-18.0 mg/dL Performing Lab: see note ML - [facility] LB CBC AUTO DIFF Reviewed date:05/06/2025 10:03:33 AM Interpretation: Performing Lab: Notes/Report: [facility] , White Blood Count 12.5 4.0-11.0 10 3/uL Red Blood Count 4.29 4.20-5.40 10 6/uL Hemoglobin 13.7 12.0-16.0 g/dL Hematocrit 39.5 36.0-48.0 % Mean Corpuscular Volume 92.1 81.0-99.0 fL Mean Corpuscular Hemoglobin 31.9 26.7-34.0 pg Mean Corpuscular HGB Conc 34.7 29.9-35.2 g/dL Red Cell Distribution Width 12.7 11.0-15.0 % Platelet Count 226 150-450 10 3/uL Mean Platelet Volume 11.0 9.5-13.5 fL Neutrophils Percent Auto 79.2 43.0-75.0 % Lymphocytes Percent Auto 12.6 20.5-60.0 % Monocytes Percent Auto 5.0 1.7-12.0 % Eosinophils Percent Auto 2.6 0.9-7.0 % Basophils Percent Auto 0.2 0.2-2.0 % Immature Granulocytes Pct Auto 0.4 0.0-0.5 % Neutrophils Absolute Auto 9.9 1.4-6.5 10 3/uL Lymphocytes Absolute Auto 1.6 1.2-3.8 10 3/uL Monocytes Absolute Auto 0.6 0.3-0.8 10 3/uL Eosinophils Absolute Auto 0.3 0.0-0.7 10 3/uL Basophils Absolute Auto 0.0 0.0-0.1 10 3/uL Immature Granulocytes Abs Auto 0.05 0.00-0.03 10 3/uL Performing Lab: see note ML - [facility] LB CREATININE Reviewed date:05/06/2025 10:03:33 AM Interpretation: Performing Lab: Notes/Report: The [facility] , Creatinine 0.37 0.55-1.02 mg/dL Estimated GFR ( Ashley >60 >=60 mL/min/1.73m 2 Estimated GFR (Non- Hortencia >60 >=60 mL/min/1.73m 2 Performing Lab: see note ML - [facility] LB LDH Reviewed date:05/06/2025 10:03:33 AM Interpretation: Performing Lab: Notes/Report: [facility] , Lactate Dehydrogenase 163 81-234 U/L Performing Lab: see note - [facility] LB SGOT Reviewed date:05/06/2025 10:03:33 AM Interpretation: Performing Lab: Notes/Report: [facility] , Aspartate Amino Transferase 23 15-37 U/L Performing Lab: see note - [facility] LB URIC ACID SERUM Reviewed date:05/06/2025 10:03:33 AM Interpretation: Performing Lab: Notes/Report: [facility] , Uric Acid 3.7 2.6-6.0 mg/dL Performing Lab: see note - [facility] LB Glucose Tolerance 3 Hour Reviewed date:05/06/2025 10:03:33 AM Interpretation: Performing Lab: Notes/Report: [facility] , Glucose Tolerance 3 Hour GLU FAST 108H (<95) Col: 05/04/25 0723 GLU 1HR 234H (<180) Col: 05/04/25 0826 GLU 2HR 186H (<155) Col: 05/04/25 0927 GLU 3HR 133 (<140) Col: 05/04/25 1028 Performing Lab: see note - [facility] US OB BPP w non-stress Reviewed date:05/06/2025 10:03:33 AM Interpretation: Performing Lab: Notes/Report: Source Facility: [place] [address] [place] [address] Ultrasound Report Signed Patient: VIMAL FUNES MR#: [id number] : 2000 Acct:[id number] Age/Sex: 25 / F ADM Date: 05/04/25 Loc: [facility] 250-[address]: Rossana Leach Ordering Physician: Rossana Leach Date of Service: 05/04/25 Procedure(s): US OB BPP w non-stress Accession Number(s): [id number] cc: Rossana Leach; JENNIFER SEE [place] [address] Patient Name: VIMAL FUNES MRN: [id number] date: 2000 Sex: F Assigned Patient Location: [facility] Current Patient Location: [facility] Accession/Order Number: [id number] Exam Date: 05/04/2025 12:08 Report Date: 05/04/2025 12:09 At the request of: ROSSANA LEACH Procedure: US OB BPP w non-stress Biophysical profile. Reason for exam: Gestational diabetes COMPARISON: None TECHNIQUE: Transabdominal imaging of the gravid uterus was obtained. FINDINGS: The infrastructure administrator reports a BPP of 8 out of 8. DANYA is normal at 12.4 cm. heart rate 150 bpm. US/US OB BPP w non-stress IMPRESSION: BPP 8 out of 8. Impression dictated by: Bulmaro Arias Jr., D.O. 05/04/2025 12:09 PM Dictation Location: [place] [address] Electronically authenticated by: [id number] Y Date: 05/04/2025 12:09 Dictated By: Bulmaro Arias M.D. Signed By: 05/04/25 1212 DD/ 1209 TD/TT: Commercial Relief Driver: [place] [address] Ultrasound Report Signed Patient: VIMAL FUNES MR#: [id number] : 2000 Acct:[id number] Age/Sex: 25 / F ADM Date: 05/04/25 Loc: [place] [address]: Rossana Leach Ordering Physician: Rossana Leach Date of Service: 05/04/25 Procedure(s): US OB BPP w non-stress Accession Number(s): [id number] cc: Rossana Leach; JENNIFER SEE [address] [address] Patient Name: VIMAL FUNES MRN: [id number] date: 2000 Sex: F Assigned Patient Location: [facility] Current Patient Location: [facility] Accession/Order Number: [id number] Exam Date: 05/04/2025 12:08 Report Date: 05/04/2025 12:09 At the request of: ROSSANA LEACH Procedure: US OB fet al BPP w non-stress Biophysical profile. Reason for exam: Gestational diabetes COMPARISON: None TECHNIQUE: Transabdominal imaging of the gravid uterus was obtained. FINDINGS: The infrastructure administrator reports a BPP of 8 out of 8. DANYA is normal at 12.4 cm. heart rate 150 bpm. US/US OB BPP w non-stress IMPRESSION: BPP 8 ou t of 8. Impression dictated by: Bulmaro Arias Jr., D.O. 05/04/2025 12:09 PM Dictation Location: [place] [address] Electronically authenticated by: [id number] Y Date: 05/04/2025 12:09 Dictated By: Bulmaro Arias M.D. Signed By: 05/04/25 1212 DD/ 1209 TD/TT: Commercial Relief Driver: US OB growth Reviewed date:05/06/2025 10:03:33 AM Interpretation: Performing Lab: Notes/Report: Source Facility: [place] [address] Ultrasound Report Signed Patient: VIMAL FUNES MR#: [id number] : 2000 Acct:[id number] Age/Sex: 25 / F ADM Date: 05/04/25 Loc: [place] [address]: Rossana Leach Ordering Physician: Rossana Leach Date of Service: 05/04/25 Procedure(s): US OB growth Accession Number(s): [id number] cc: Rossana Leach; JENNIFER [place] [address] Patient Name: VIMAL FUNES MRN: [id number] date: 2000 Sex: F Assigned Patient Location: [facility] Current Patient Location: [facility] Accession/Order Number: [id number] Exam Date: 05/04/2025 12:06 Report Date: 05/04/2025 [...] Jr., D.O. 05/04/2025 12:08 PM Dictation Location: [place] Electronically authenticated by: [id number] Y Date: 05/04/2025 12:08 Dictated By: Bulmaro Arias M.D. Signed By: 05/04/25 1211 DD/ 1208 TD/TT: Commercial Relief Driver: [place] [address] Ultrasound Report Signed Patient: VIMAL FUNES MR#: [id number] : 2000 Acct:[id number] Age/Sex: 25 / F ADM Date: 05/04/25 Loc: [place] [address]: Rossana Leach Ordering Physician: Rossana Leach Date of Service: 05/04/25 Procedure(s): US OB growth Accession Number(s): [id number] cc: Rossana Leach; JENNIFER SEE [place] [id number] Patient Name: VIMAL FUNES MRN: [id number] date: 2000 Sex: F Assigned Patient Location: [facility] Current Patient Location: [facility] Accession/Order Number: [id number] Exam Date: 05/04/2025 12:06 Report Date: 05/04/2025 12:08 At the request of: ROSSANA LEACH Procedure: US OB growth Growth ultrasound. Reason for exam: Gestational diabetes. COMPARISON: Ultrasou nd 03/08/2025. TECHNIQUE: Transabdominal imaging of the gravid uterus was obtained. FINDINGS: Single milo e intrauterine measuring 26 weeks 3 days by anatomic measurement s. Head circumference is less than 3rd percentile. Abdominal circumference is at the 20th percentile. DANYA is normal at 12.38 cm. Estimated weig ht is 1054 g which is at the 5th percentile. heart rate measures 150 bpm. US/US OB growth IMPRESSION: Single live intrauterine measuring 26 weeks 3 days by anatomic measurement s. Low percentile head circumference and estimated weight. Impression dictated by: Bulmaro Arias Jr., D.O. 05/04/2025 12:08 PM Dictation Location: [place] Electronically authenticated by: [id number] Y Date: 05/04/2025 12:08 Dictated By: Bulmaro Arias M.D. Signed By: 05/04/25 1211 DD/ 1208 TD/TT: Commercial Relief Driver: Total Protein 24 Hour Urine Reviewed date:05/07/2025 09:01:34 AM Interpretation: Performing Lab: Notes/Report: [facility] , Total Protein Urine Random <6.0 <=11.9 mg/dL Total Volume 24 Hour Urine 3700 Performing Lab: see note ML - [facility] LB Prothrombin Time INR Reviewed date:05/06/2025 10:03:33 AM Interpretation: Performing Lab: Notes/Report: [facility] , Prothrombin Time 10.1 9.0-11.6 sec INR 0.95 DESIRED INR: 2.0-3.0 CONDITIONS NOT LISTED BELOW 2.5-3.5 FOR PROSTHETIC HEART VALVE REPLACEMENT 2.5-3.5 RECURRENT THROMBOSIS Performing Lab: see note ML - [facility] LB PTT Reviewed date:05/06/2025 10:03:33 AM Interpretation: Performing Lab: Notes/Report: [facility] , Partial Thromboplastin Time 25.7 22.3-36.2 sec Performing Lab: see note ML - [facility] LB IGP,Aptima HPV,Age Gdln Reviewed date:02/25/2025 03:13:18 PM Interpretation: Performing Lab: Notes/Report: SPATULA-ALONE ENDOCERVIX [facility] , Age Gdln ACOG Testing Note . TESTS RESULT FLAG UNITS REF RANGE LAB Clinician Provided Cytology Information Source.............End [facility] No. of containers..01 ThinPrep Vial Age Ramirez Arndt... FLAG LEGEND: L-Low Normal,H-High Normal,LL-Alert Low,HH-Alert High <-Panic Low,>-Panic High,A-Abnormal,AA-Cri tical Abnormal Performed at: 01 [facility] [address] [place] [address] Jenise Byrne MD, IGP, rfx Aptima HPV ASCU Note . TESTS RESULT FLAG UNITS REF RANGE LAB DIAGNOSIS: 02 NEGATIVE FOR INTRAEPITHELIAL LESION OR MALIGNANCY. Specimen adequacy: 02 Satisfactory for evaluation. Endocervical and/or squamous metaplastic cells (endocervical component) are present. Performed by: Hussein Alvarez, Flash Developer ([facility]) . 02 Note: Note 02 The [...] L-Low Normal,H-High Normal,LL-Alert Low,HH-Alert High <-Panic Low,>-Panic High,A-Abnormal,AA-Cri tical Abnormal Performed at: [address] [address] Jenise Byrne MD, Performed at: =[facility] Lab[address] [id number] Manager Quality Improvement: Jenise Byrne MD, Phone: [phone] Performed at: [address] [id number] Manager Quality Improvement: Jenise Byrne MD, Phone: [phone] Performing Lab: see note [facility] Urine Culture, Routine Reviewed date:01/07/2025 01:05:16 PM Interpretation: Performing Lab: Notes/Report: [facility] , Urine Culture, Routine See Below For Report Urine Culture, Routine Urine Culture, Routine Mixed urogenital tami Urine Culture, Routine Urine Culture, Routine 50,000-100,000 co lony forming units per mL Urine Culture, Routine Urine Culture, Routine Performed at: [facility] Urine Culture, Routine Urine Culture, Routine [address] [place] [phone] Urine Culture, Routine Urine Culture, Routine Manager Quality Improvement: Riky Harris PhD, Phone: [phone] Urine Culture, Routine Performing Lab: see note - [facility] LB SEE REPORT - Tongue And Groove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-specific 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 legend Reason For Referral No Information Medications Medication [...] Encounters Encounter Location Date Provider Diagnosis [facility] [address] [place] [address] 06/05/2024 Jennifer See Z33.1 and Wellness examination [...] ACCESS PPO PLUS LOCAL PLAN [address] [place] [address] [id number] Vimal Funes Self - patient is the insured [employer] [place] [employer] [address] [place] [address] [id number] Vimal Funes Self - patient is the insured Medical (General) History Medical History History ICD Code lead poisoning Surgical History Surgery Date(Month/Year) ear tubes
--- OUTSIDE RECORDS SUMMARY | 2025-05-08 17:09 | XMS_ITS | CCD ---
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 Name Role Phone MICHAEL ., DR [...] Unavailable MISC, DR DOMINIQUE Primary Care Unavailable OOLITIC, DR COCO Danielle Consulting Unavailable MICHAEL ., DR MANN Consulting Unavailable MICHAEL ., DR MANN Admitting Unavailable MICHAEL ., DR MANN Attending Unavailable MISC, DR DOMINIQUE Primary Care Unavailable MICHAEL ., DR MANN Consulting Unavailable MICHAEL ., DR MANN Admitting Unavailable MICHAEL ., DR MANN Attending Unavailable MISC, DR DOMINIQUE Primary Care Unavailable OOLITIC, DR COCO Danielle Consulting Unavailable MICHAEL ., [...] Jennifer Huston Unavailable JEFFERY Huston Attending Provider [phone] Vaishali Zapata MD Primary Care Provider Unavai [...] each day at the same time Active Blood Glucose Monitoring Suppl (D-Care Glucometer) w/Device kit (1 source) Start: 05-08-2025 End: 05-08-2026 Blood Glucose Monitoring Suppl (D-Care Glucometer) w/Device kit Indications: Gestational diabetes mellitus (GDM), antepartum, gestational diabetes method of control unspecified ([facility]) , Elevated glucose tolerance test 1 kit Daily Use four times daily to check FSBS. In the morning prior to breakfast & 1 hour after each meal for a total of 4times daily. 1 kit 05/08/2025 05/08/2026 Active isopropyl alcohol 0.7 ml/ml medicated pad (1 source) Start: 05-08-2025 Alcohol Swabs (Alcohol Prep Pad) 70 % pads Indications: Gestational diabetes mellitus (GDM), antepartum, gestational diabetes method of control unspecified ([facility]) , Elevated glucose tolerance test Apply 1 Pad topically Daily Use four times daily to check FSBS. 150 each 3 05/08/2025 Active labetalol hydrochloride 300 mg oral tablet (20 sources) beta-Adrenergic Haseeb Start: 04-30-2025 End: 04-30-2026 [...] Classification Problem Date Documented Date Episodic/Chronic Diabetes mellitus without complication (5 sources) Hyperglycemia, unspecified; Translations: [Abnormal glucose tolerance test] Onset: 06-03-2022 Episodic Diabetes or abnormal glucose tolerance complicating ; childbirth; or the puerperium (11 sources) Gestational diabetes mellitus in childbirth, unspecified [...] Translations: [UNSPECIFIED ABDOMINAL PAIN] Onset: 05-01-2022 Episodic OB-related trauma to perineum and vulva [...] ] Onset: 05-01-2022 Episodic Unclassified (1 source) [facility] SPCF DIS/COND COMPL ; Translations: [OT SPCF DIS/COND COMPL ] Onset: 04-27-2022 Urinary tract infections (5 sources) Urinary tract infection, site not specified; Translations: [UTI SITE NOT SPECIFIED] Onset: 05-10-2022 Episodic Viral infection (1 source) Viral infection, unspecified; Translations: [VIRAL INFECTION UNSPECIFIED] Onset: 07-07-2022 Episodic Results Test Name Value Interpretation Reference Range Facility TB TOTAL PROTEIN 24 HOUR UR INEon 05-06-2025 TOTAL PROTEIN URINE RANDOM <6.0 NINF - 11.9 mg/dL [facility] TOTAL VOLUME 24 HOUR URINE 3700 mL/24hr [facility] ALL CBC WITH AUTO DIFFon BASOPHILS ABSOLUTE AUTO 0 [facility] Basophils/100 WBC (Bld) 0.2 % 0.2 - 2.0 % [facility] Eosinophils/100 WBC (Bld) 2.6 % 0.9 - 7.0 % [facility] Erythrocyte distribution width (RBC) [Ratio] 12.7 % 11.0 - 15.0 % [facility] Hematocrit (Bld) [Volume fraction] 39.5 % 36.0 - 48.0 % [facility] Hemoglobin (Bld) [Mass/Vol] 13.7 g/dL 12.0 - 16.0 g/dL [facility] IMMATURE GRANULOCYTES ABS AUTO 0.05 High [facility] Immature granulocytes/100 WBC (Bld) 0.4 % 0.0 - 0.5 % [facility] Interpretation and review of laboratory results Abnormal [facility] LYMPHOCYTES ABSOLUTE AUTO 1.6 [facility] Lymphocytes/100 WBC (Bld) 12.6 % Low 20.5 - 60.0 % [facility] MCH (RBC) [Entitic mass] 31.9 pg 26.7 - 34.0 pg [facility] MCHC (RBC) [Mass/Vol] 34.7 g/dL 29.9 - 35.2 g/dL [facility] MCV (RBC) [Entitic vol] 92.1 fL 81.0 - 99.0 fL [facility] MONOCYTES ABSOLUTE AUTO 0.6 [facility] Monocytes/100 WBC (Bld) 5 % 1.7 - 12.0 % [facility] NEUTROPHILS ABSOLUTE AUTO 9.9 High [facility] Healthcare Neutrophils/100 WBC (Bld) 79.2 % High 43.0 - 75.0 % [facility] Platelet mean volume (Bld) [Entitic vol] 11 fL 9.5 - 13.5 fL [facility] TBH EO # 0.3 [facility] PLT 226 [facility] TB[facility] RBC 4.29 [facility] WBC 12.5 High [facility] US OB BPP W NON-STRESS on 05-04-2025 [place] [address] Ultrasound Report Signed Patient: VIMAL FUNES MR#: [id number] : 2000 Acct:[id number] Age/Sex: 25 / F ADM Date: 05/04/25 Loc: [place] [address]: Rossana Leach Ordering Physician: Rossana Leach Date of Service: 05/04/25 Procedure(s): US OB BPP w non-stress Accession Number(s): [id number] cc: JENNIFER Watkins [place] [phone] Patient Name: VIMAL FUNES MRN: [id number]:[id number] date: 2000 Sex: F Assigned Patient Location: [facility] Current Patient Location: [facility] Accession/Order Number: [id number] Exam Date: 05/04/2025 12:08 Report Date: 05/04/2025 12:09 At the request of: ROSSANA LEACH Procedure: US OB BPP w non-stress Biophysical profile. Reason for exam: Gestational diabetes COMPARISON: None TECHNIQUE: Transabdominal imaging of the gravid uterus was obtained. FINDINGS: The speech therapist reports a BPP of 8 out of 8. DANYA is normal at 12.4 cm. heart rate 150 bpm. US/US OB BPP w non-stress IMPRESSION: BPP 8 out of 8. Impression dictated by: Bulmaro Arias Jr., D.O. 05/04/2025 12:09 PM Dictation Location: [place] [address] Electronically authenticated by: [id number] Y Date: 05/04/2025 12:09 Dictated By: Bulmaro Arias M.D. Signed By: 05/04/25 1212 DD/ 1209 TD/TT: Supervisor Coil Winding: [facility] Radiology, Radiologist, - 05/04/2025 [place] [address] Ultrasound Report Signed Patient: VIMAL FUNES MR#: [id number] : 2000 Acct:[id number] Age/Sex: 25 / F ADM Date: 05/04/25 Loc: [place] [address]- Attending Dr: Rossana Leach Ordering Physician: Rossana Leach Date of Service: 05/04/25 Procedure(s): US OB BPP w non-stress Accession Number(s): [id number] cc: Rossana Leach; JENNIFER SEE [place] [phone] Patient Name: VIMAL FUNES MRN: [facility]:[id number] date: 2000 Sex: F Assigned Patient Location: [facility] Current Patient Location: [facility] Accession/Order Number: [id number] Exam Date: 05/04/2025 12:08 Report Date: 05/04/2025 12:09 At the request of: ROSSANA LEACH Procedure: US OB BPP w non-stress Biophysical profile. Reason for exam: Gestational diabetes COMPARISON: None TECHNIQUE: Transabdominal imaging of the gravid uterus was obtained. FINDINGS: The speech therapist reports a BPP of 8 out of 8. DANYA is normal at 12.4 cm. heart rate 150 bpm. US/US OB BPP w non-stress IMPRESSION: BPP 8 out of 8. Impression dictated by: Bulmaro Arias Jr., D.O. 05/04/2025 12:09 PM Dictation Location: [facility]18 Electronically authenticated by: [id number] Y Date: 05/04/2025 12:09 Dictated By: Bulmaro Arias M.D. Signed By: 05/04/25 1212 DD/ 1209 TD/TT: Supervisor Coil Winding: [facility] Radiology Study observation (narrative) [facility] US OB BPP W NON-STRESS Ordered By: Radiologist Radiology on 05-04-2025 [facility] [employer] Work Phone: US OB GROWTHon 05-04-[address] [address] Ultrasound Report Signed Patient: VIMAL FUNES MR#: [id number] : 2000 Acct:[id number] Age/Sex: 25 / F ADM Date: 05/04/25 Loc: [facility] 250-[address]: Rossana Leach Ordering Physician: Rossana Leach Date of Service: 05/04/25 Procedure(s): US OB growth Accession Number(s): [id number] cc: Rossana Leach; JENNIFER SEE [address] [address] Patient Name: VIMAL FUNES MRN: [id number]:[id number] date: 2000 Sex: F Assigned Patient Location: [facility] Current Patient Location: [facility] Accession/Order Number: [id number] Exam Date: 05/04/2025 12:06 Report Date: 05/04/2025 [...] Jr., D.O. 05/04/2025 12:08 PM Dictation [email or web address] Electronically authenticated by: [id number] Y Date: 05/04/2025 12:08 Dictated By: Bulmaro Arias M.D. Signed By: 05/04/25 1211 DD/ 1208 TD/TT: Supervisor Coil Winding: [facility] Radiology, Radiologist, MD - 05/04/2025 [place] [address] Ultrasound Report Signed Patient: VIMAL FUNES MR#: [id number] : 2000 Acct:[id number] Age/Sex: 25 / F ADM Date: 05/04/25 Loc: [place] [address]: Rossana Leach Ordering Physician: Rossana Leach Date of Service: 05/04/25 Procedure(s): US OB growth Accession Number(s): [id number] cc: Rossana Leach; JENNIFER SEE [address] [address] Patient Name: VIMAL FUNES MRN: [facility]:[id number] date: 2000 Sex: F Assigned Patient Location: [facility] Current Patient Location: [facility] Accession/Order Number: [id number] Exam Date: 05/04/2025 12:06 Report Date: 05/04/2025 [...] Jr., D.O. 05/04/2025 12:08 PM Dictation Location: [employer] Electronically authenticated by: [id number] Y Date: 05/04/2025 12:08 Dictated By: Bulmaro Arias M.D. Signed By: 05/04/25 1211 DD/ 1208 TD/TT: Supervisor Coil Winding: [facility] Radiology Study observation (narrative) [facility] US OB GROWTHOrdered By: Jeimy ologist Radiology on 05-04-2025 [facility] Healthcar e Work Phone: Urinalysis macro (dipstick) panel (U)on 04-30-2025 Bilirubin, UA Negative Negative - 4(70) +++ mg/dL [facility] Blood, UA Negative Negative - 50 Jason/mcL [facility] Clarity, UA Clear [facility] re Color, UA Yellow [facility] Glucose, UA Positive Negative - 2000(110) ++++ mg/dL [facility] Interpretation and review of laboratory results Abnormal [facility] Ketones, UA Negative Negative - 160(16) ++++ mg/dL [facility] Leukocytes, UA Positive Negative - 500+++ Carlos/mcL [facility] Nitrite, UA Negative Negative - Positive [facility] pH, UA 6 5 - 9 [facility] e Protein, UA Negative Negative - 2000(20) ++++ mg/dL [facility] Spec Grav, UA 1.01 1 - 1.03 [facility] Urobilinogen, UA 1.0 0.2 - 12 mg/dL [facility] ALL CBC WITH AUTO DIFFon BASOPHILS ABSOLUTE AUTO 0 [facility] Basophils/100 WBC (Bld) 0.2 % 0.2 - 2.0 % [facility] Eosinophils/100 WBC (Bld) 2.2 % 0.9 - 7.0 % [facility] Erythrocyte distribution width (RBC) [Ratio] 12.9 % 11.0 - 15.0 % [facility] Hematocrit (Bld) [Volume fraction] 40 % 36.0 - 48.0 % [facility] Hemoglobin (Bld) [Mass/Vol] 13.6 g/dL 12.0 - 16.0 g/dL [facility] IMMATURE GRANULOCYTES ABS AUTO 0.04 High [facility] Immature granulocytes/100 WBC (Bld) 0.3 % 0.0 - 0.5 % [facility] Interpretation and review of laboratory results Abnormal [facility] LYMPHOCYTES ABSOLUTE AUTO 1.4 [facility] Lymphocytes/100 WBC (Bld) 10.8 % Low 20.5 - 60.0 % [facility] MCH (RBC) [Entitic mass] 31.7 pg 26.7 - 34.0 pg [facility] MCHC (RBC) [Mass/Vol] 34 g/dL 29.9 - 35.2 g/dL [facility] MCV (RBC) [Entitic vol] 93.2 fL 81.0 - 99.0 fL [facility] MONOCYTES ABSOLUTE AUTO 0.5 [facility] Monocytes/100 WBC (Bld) 4.3 % 1.7 - 12.0 % [facility] NEUTROPHILS ABSOLUTE AUTO 10.2 High [facility] Neutrophils/100 WBC (Bld) 82.2 % High 43.0 - 75.0 % [facility] Platelet mean volume (Bld) [Entitic vol] 10.6 fL 9.5 - 13.5 fL [facility] TBH EO # 0.3 [facility] TB PLT 202 [facility] e TB RBC 4.29 [facility] Healthcar e TB WBC 12.5 High [facility] Health[facility] e [facility] Health[facility] e Urinalysis macro (dipstick) panel (U)on 04-25-2025 Bilirubin, UA Negative Negative - 4(70) +++ mg/dL [facility] Blood, UA Negative Negative - 50 Jason/mcL [facility] Clarity, UA Clear [facility] re Color, UA Yellow [facility] e Glucose, UA Negative Negative - 1999(110) ++++ mg/dL [facility] Interpretation and review of laboratory results Normal [facility] Ketones, UA Negative Negative - 160(16) ++++ mg/dL [facility] Leukocytes, UA Negative Negative - 500+++ Carlos/mcL [facility] Nitrite, UA Negative Negative - Positive [facility] pH, UA 6.5 5 - 9 [facility] Protein, UA Negative Negative - 1999(20) ++++ mg/dL [facility] Spec Grav, UA 1.01 1 - 1.03 [facility] Urobilinogen, UA 0.2 0.2 - 12 mg/dL [facility] Urinalysis macro (dipstick) panel (U)on 04-11-2025 Bilirubin, UA Negative Negative - 4(70) +++ mg/dL [facility] Blood, UA Negative Negative - 50 Jason/mcL [facility] Clarity, UA Clear [facility] Color, UA Yellow [facility] Glucose, UA Negative Negative - 1999(110) ++++ mg/dL [facility] Interpretation and review of laboratory results Normal [facility] Ketones, UA Negative Negative - 160(16) ++++ mg/dL [facility] Leukocytes, UA Negative Negative - 500+++ Carlos/mcL [facility] Nitrite, UA Negative Negative - Positive [facility] pH, UA 7 5 - 9 [facility] Healthcar e Protein, UA Negative Negative - 1999(20) ++++ mg/dL [facility] Spec Grav, UA 1.005 1 - 1.03 [facility] Urobilinogen, UA 1.0 0.2 - 12 mg/dL [facility] US OB INCOMPLETE ANATOMYon 0 03-25-2025 [place] [address] Ultrasound Report Signed Patient: VIMAL FUNES MR#: [id number] : 2000 Acct:[id number] Age/Sex: 24 / F ADM Date: 03/23/25 Loc: US Attending Dr: Jose Rodriguez D.O. Ordering Physician: Jose Rodriguez D.O. Date of Service: 03/23/25 Procedure(s): US OB incomplete anatomy Accession Number(s): [id number] cc: JENNIFER SEE ; Jose Rodriguez D.O. [address] [address] Patient Name: VIMAL FUNES MRN: [id number]:[id number] date: 2000 Sex: F Assigned Patient Location: US Current Patient Location: US Accession/Order Number: [id number] Exam Date: 03/25/2025 08:23 Report Date: 03/25/2025 [...] Brown M.D. 03/25/2025 8:25 AM Dictation Location: [place] [address] Electronically authenticated by: [id number] Y Date: 03/25/2025 08:25 Dictated By: Meghana Brown M.D. Signed By: 03/25/25826 DD/ 4 TD/TT: Supervisor Coil Winding: [facility] Radiology, Radiologist, MD - 03/25/2025 [place] [address] Ultrasound Report Signed Patient: VIMAL FUNES MR#: [id number] : 2000 Acct:[id number] Age/Sex: 24 / F ADM Date: 03/23/25 Loc: US Attending Dr: Jose Rodriguez D.O. Ordering Physician: Jose Rodriguez D.O. Date of Service: 03/23/25 Procedure(s): US OB incomplete anatomy Accession Number(s): [id number] cc: JENNIEFR SEE ; Jose Rodriguez D.O. [place] [id number] Patient Name: VIMAL FUNES MRN: [facility]:[id number] date: 2000 Sex: F Assigned Patient Location: US Current Patient Location: US Accession/Order Number: [id number] Exam Date: 03/25/2025 08:23 Report Date: 03/25/2025 [...] Brown M.D. 03/25/2025 8:25 AM Dictation Location: [place] [address] Electronically authenticated by: [id number] Y Date: 03/25/2025 08:25 Dictated By: Meghana Brown M.D. Signed By: 03/25/25826 DD/ 4 TD/TT: Supervisor Coil Winding: [facility] Radiology Study observation (narrative) [facility] US OB INCOMPLETE ANATOMYOrde red By: Radiologist Radiology on 03-25-2025 [facility] Work Phone: Urinalysis macro (dipstick) panel (U)on 03-14-2025 Bilirubin, UA Negative Negative - 4(70) +++ mg/dL [facility] Blood, UA Negative Negative - 50 Jason/mcL [facility] Clarity, UA Clear [facility] re Color, UA Yellow [facility] e Glucose, UA Negative Negative - 1999(110) ++++ mg/dL [facility] Interpretation and review of laboratory results Normal [facility] Ketones, UA Negative Negative - 160(16) ++++ mg/dL [facility] Leukocytes, UA Negative Negative - 500+++ Carlos/mcL [facility] Nitrite, UA Negative Negative - Positive [facility] pH, UA 7 5 - 9 [facility] e Protein, UA Negative Negative - 1999(20) ++++ mg/dL [facility] Spec Grav, UA 1.01 1 - 1.03 [facility] Urobilinogen, UA 0.2 0.2 - 12 mg/dL [facility] e No Panel InformationOrdered By: Radiologist Radiology on 03-08-2025 [facility] Work Phone: No Panel Informationon 03-08 Radiology Study observation (narrative) [facility] US OB ANATOMYon 03-08-2025 [place] [address] Ultrasound Report Signed Patient: VIMAL FUNES MR#: [id number] : 2000 Acct:[id number] Age/Sex: 24 / F ADM Date: 03/08/25 Loc: US Attending Dr: Jose Rodriguez D.O. Ordering Physician: Jose Rodriguez D.O. Date of Service: 03/08/25 Procedure(s): US OB anatomy Accession Number(s): [id number] cc: JENNIFER SEE ; Jose Rodriguez D.O. [place] [phone] Patient Name: VIMAL FUNES MRN: [id number] date: 2000 Sex: F Assigned Patient Location: US Current Patient Location: US Accession/Order Number: [id number] Exam Date: 03/08/2025 20:31 Report Date: 03/08/2025 [...] Knapp M.D. 03/08/2025 8:36 PM Dictation Location: [facility] Electronically authenticated by: [id number] Y Date: 03/08/2025 20:36 Dictated By: Shivam Knapp D.O. Signed By: 03/08/252037 DD/ 35 TD/TT: Supervisor Coil Winding: [facility] Radiology, Radiologist, - 03/08/2025 [place] [address] Ultrasound Report Signed Patient: VIMAL FUNES MR#: [id number] : 2000 Acct:[id number] Age/Sex: 24 / F ADM Date: 03/08/25 Loc: US Attending Dr: Jose Rodriguez D.O. Ordering Physician: Jose Rodriguez D.O. Date of Service: 03/08/25 Procedure(s): US OB anatomy Accession Number(s): [id number] cc: JENNIFER SEE ; Jose Rodriguez D.O. [place] [address] Patient Name: VIMAL FUNES MRN: [facility]:[id number] date: 2000 Sex: F Assigned Patient Location: US Current Patient Location: US Accession/Order Number: [id number] Exam Date: 03/08/2025 20:31 Report Date: 03/08/2025 [...] Knapp M.D. 03/08/2025 8:36 PM Dictation Location: [place] [address] Electronically authenticated by: [id number] Y Date: 03/08/2025 20:36 Dictated By: Shivam Knapp D.O. Signed By: 03/08/252037 DD/ 35 TD/TT: Supervisor Coil Winding: [place] [facility] CERVICAL LENGTHon 02-24 [place] [address] Ultrasound Report Signed Patient: VIMAL FUNES MR#: [id number] : 2000 Acct:[id number] Age/Sex: 24 / F ADM Date: 03/08/25 Loc: US Attending Dr: Jose Rodriguez D.O. Ordering Physician: Jose Rodriguez D.O. Date of Service: 03/08/25 Procedure(s): US OB cervical length Accession Number(s): [id number] cc: JENNIFER SEE ; Jose Rodriguez D.O. [address] [address] Patient Name: VIMAL FUNES MRN: [id number]:[id number] date: 2000 Sex: F Assigned Patient Location: US Current Patient Location: US Accession/Order Number: [id number] Exam Date: 03/08/2025 20:31 Report Date: 03/08/2025 [...] Knapp M.D. 03/08/2025 8:36 PM Dictation Location: [place] [address] Electronically authenticated by: [id number] Y Date: 03/08/2025 20:36 Dictated By: Shivam Knapp D.O. Signed By: 03/08/252037 DD/ 35 TD/TT: Supervisor Coil Winding: [facility] Radiology, Radiologist, MD - 03/08/2025 [place] [address] Ultrasound Report Signed Patient: VIMAL FUNES MR#: [id number] : 2000 Acct:[id number] Age/Sex: 24 / F ADM Date: 03/08/25 Loc: US Attending Dr: Jose Rodriguez D.O. Ordering Physician: Jose Rodriguez D.O. Date of Service: 03/08/25 Procedure(s): US OB cervical length Accession Number(s): [id number] cc: JENNIFER SEE ; Jose Rodriguez D.O. The [address] [address] Patient Name: VIMAL FUNES MRN: [id number] date: 2000 Sex: F Assigned Patient Location: Current Patient Location: Accession/Order Number: [id number] Exam Date: 03/08/2025 20:31 Report Date: 03/08/2025 [...] Knapp M.D. 03/08/2025 8:36 PM Dictation Location: [facility] Electronically authenticated by: [id number] Y Date: 03/08/2025 20:36 Dictated By: Shivam Knapp D.O. Signed By: 03/08/252037 DD/ 35 TD/TT: Supervisor Coil Winding: ARJUN Martinez IGP,APTIMA HPV,AGE GDLNon AGE GDLN ACOG TESTING Note . RUTH Martinez Comment on above: TESTS RESULT FLAG UN ITS REF RANGE LAB Clinician Provided Cytology Information Source.............Endocervix No. of containers..01 ThinPrep Vial Age Ramirez MORALES Yris... FLAG LEGEND: L-Low Normal,H-High Normal,LL-Alert Low,HH-Alert High <-Panic Low,>-Panic High,A-Abnormal,AA-Critical Abnormal Performed at: 01 =G [address] [address] Jenise Byrne MD, IGP, RFX APTIMA HPV ASCU Note . [facility] Comment on above: TESTS RESULT FLAG UN ITS REF RANGE LAB DIAGNOSIS: 02 NEGATIVE FOR INTRAEPITHELIAL LESION OR MALIGNANCY. Specimen adequacy: 02 Satisfactory for evaluation. Endocervical and/or squamous metaplastic cells (endocervical component) are present. Performed by: 02 Whitney Alvarez Drum Worker ([facility]) . 02 Note: Note 02 [...] <-Panic Low,>-Panic High,A-Abnormal,AA-Critical Abnormal Performed at: [address] [address] Jenise Byrne MD, Performed at: = - [address] [id number] Sewer Maintenance Supervisor: Jenise Byrne MD, Phone: [phone] Performed at: [address] [id number] Sewer Maintenance Supervisor: Jenise Byrne MD, Phone: [phone] [facility] e RECURRENT VAGINITIS (HTRX)on 02-22-2025 ATOPOBIUM VAGINAE 0 [facility] ATOPOBIUM VAGINAE Not detected [facility] BVAB 2,3 (BACTERIAL VAGINOSIS ASSOCIATED BACTERIA 2, 3); MOBILUNCUS SPP 0 [facility] BVAB 2,3 (BACTERIAL VAGINOSIS ASSOCIATED BACTERIA 2, 3); MOBILUNCUS SPP Not detected [facility] SIMEON ALBICANS, PARAPSILOSIS, TROPICALIS 0 [facility] SIMEON ALBICANS, PARAPSILOSIS, TROPICALIS Not detected [facility] GLABRATA 0 [facility] SIMEON GLABRATA Not detected [facility] SIMEON KRUSEI 0 [facility] SIMEON KRUSEI Not detected [facility] CHLAMYDIA TRACHOMATIS 0 [facility] CHLAMYDIA TRACHOMATIS Not detected N [facility] GARDNERELLA VAGINALIS 0 [facility] GARDNERELLA VAGINALIS Not detected N [facility] MEGASPHAERA (TYPES 1, 2) 0 [facility] MEGASPHAERA (TYPES 1, 2) Not detected [facility] MYCOPLASMA GENITALIUM 0 [facility] MYCOPLASMA GENITALIUM Not detected N [facility] NEISSERIA GONORRHOEAE 0 [facility] Children NEISSERIA GONORRHOEAE Not detected N [facility] TRICHOMONAS VAGINALIS 0 NOM [facility] TRICHOMONAS VAGINALIS Not detected N [facility] Urinalysis macro (dipstick) panel (U)on 02-20-2025 Bilirubin, UA Negative Negative - 4(70) +++ mg/dL [facility] Blood, UA Negative Negative - 50 Jason/mcL [facility] Healthcare Clarity, UA Clear [facility] Healthca re Color, UA Yellow [facility] Healthcar e Glucose, UA Negative Negative - 1999(110) ++++ mg/dL [facility] Interpretation and review of laboratory results Abnormal [facility] Ketones, UA Negative Negative - 160(16) ++++ mg/dL [facility] Leukocytes, UA Negative Negative - 500+++ Carlos/mcL [facility] Nitrite, UA Negative Negative - Positive [facility] pH, UA 7 5 - 9 [facility] Healthcar e Protein, UA Negative Negative - 1999(20) ++++ mg/dL [facility] Spec Grav, UA 1.01 1 - 1.03 [facility] Urobilinogen, UA 0.2 0.2 - 12 mg/dL [facility]inalysis macro (dipstick) panel (U)on 01-14-2025 Bilirubin, UA Negative Negative - 4(70) +++ mg/dL [facility] Blood, UA Positive Negative - 50 Jason/mcL [facility] Healthcare Comment on above: trace-intact Clarity, UA Clear [facility] Healthca re Color, UA Yellow [facility] Healthcar e Glucose, UA Negative Negative - 1999(110) ++++ mg/dL [facility] Interpretation and review of laboratory results Abnormal [facility] Ketones, UA Negative Negative - 160(16) ++++ mg/dL [facility] Leukocytes, UA Negative Negative - 500+++ Carlos/mcL [facility] Healthcare Nitrite, UA Negative Negative - Positive [facility] pH, UA 6 5 - 9 [facility] Protein, UA Negative Negative - 1999(20) ++++ mg/dL [facility] Spec Grav, UA 1.005 1 - 1.03 [facility] Urobilinogen, UA 0.2 0.2 - 12 mg/dL [facility] Healthcar e ALL CBC WITH AUTO DIFFon BASOPHILS ABSOLUTE AUTO 0 [facility] Basophils/100 WBC (Bld) 0.4 % 0.2 - 2.0 % [facility] Eosinophils/100 WBC (Bld) 1.7 % 0.9 - 7.0 % [facility] Erythrocyte distribution width (RBC) [Ratio] 12.3 % 11.0 - 15.0 % [facility] Hematocrit (Bld) [Volume fraction] 42.5 % 36.0 - 48.0 % [facility] Hemoglobin (Bld) [Mass/Vol] 14.7 g/dL 12.0 - 16.0 g/dL [facility] IMMATURE GRANULOCYTES ABS AUTO 0.02 [facility] Immature granulocytes/100 WBC (Bld) 0.2 % 0.0 - 0.5 % [facility] Interpretation and review of laboratory results Abnormal [facility] LYMPHOCYTES ABSOLUTE AUTO 1.4 [facility] Lymphocytes/100 WBC (Bld) 15.4 % Low 20.5 - 60.0 % [facility] MCH (RBC) [Entitic mass] 31.6 pg 26.7 - 34.0 pg [facility] MCHC (RBC) [Mass/Vol] 34.6 g/dL 29.9 - 35.2 g/dL [facility] MCV (RBC) [Entitic vol] 91.4 fL 81.0 - 99.0 fL [facility] MONOCYTES ABSOLUTE AUTO 0.5 [facility] Monocytes/100 WBC (Bld) 5.4 % 1.7 - 12.0 % [facility] NEUTROPHILS ABSOLUTE AUTO 7 High [facility] Neutrophils/100 WBC (Bld) 76.9 % High 43.0 - 75.0 % [facility] Platelet mean volume (Bld) [Entitic vol] 10.1 fL 9.5 - 13.5 fL [facility] TBH EO # 0.[address] [facility] PLT 216 N[facility] TBH RBC 4.65 N[facility] TB WBC 9.2 [facility] Healthcar e CLINISYNC [facility] US OB TRANSVAGINALon 025 US OB [...] II, MD, PHD at 14-Dec-2024 08:35:59 PM [facility] Normal Not Available Comment on above: Order Comment: US OB TRANSVAGINAL No LMP recorded. TBH PREG QUANT HCGon 025 HCG QUANTITATIVE 97487 [facility]IU[facility] Comment on above: 5-50 0.2-1 WEEK 50-500 1-2 WEEKS 100-5,000 2-3 WEEKS 500-10,000 3-4 WEEKS 1,000-50,000 4-5 WEEKS 10,000-100,000 5-6 WEEKS 15,000-200,000 6-8 WEEKS 10,000-100,000 2-3 MONTHS CLINISYNC [facility] TBH PREG QUANT HCGon 025 HCG QUANTITATIVE 6254 mIU/mL [facility] ltare Comment on above: 5-50 0.2-1 WEEK 50-500 1-2 WEEKS 100-5,000 2-3 WEEKS 500-10,000 3-4 WEEKS 1,000-50,000 4-5 WEEKS 10,000-100,000 5-6 WEEKS 15,000-200,000 6-8 WEEKS 10,000-100,000 [facility] QUANT HCGon 024 HCG QUANTITATIVE 6 mIU/mL [facility] Comment on above: 5-50 0.2-1 WEEK 50-500 1-2 WEEKS 100-5,000 2-3 WEEKS 500-10,000 3-4 WEEKS 1,000-50,000 4-5 WEEKS 10,000-100,000 5-6 WEEKS 15,000-200,000 6-8 WEEKS 10,000-100,000 2-[facility] ALL CBC WITH AUTO DIFFon BASOPHILS ABSOLUTE AUTO 0 [facility] Basophils/100 WBC (Bld) 0.5 % 0.2 - 2.0 % [facility] Eosinophils/100 WBC (Bld) 6.2 % 0.9 - 7.0 % [facility] Erythrocyte distribution width (RBC) [Ratio] 11.9 % 11.0 - 15.0 % [facility] Hematocrit (Bld) [Volume fraction] 43.8 % 36.0 - 48.0 % [facility] Hemoglobin (Bld) [Mass/Vol] 14.8 g/dL 12.0 - 16.0 g/dL [facility] IMMATURE GRANULOCYTES ABS AUTO 0.02 [facility] Immature granulocytes/100 WBC (Bld) 0.2 % 0.0 - 0.5 % [facility] LYMPHOCYTES ABSOLUTE AUTO 2 [facility] Lymphocytes/100 WBC (Bld) 22.1 % 20.5 - 60.0 % [facility] MCH (RBC) [Entitic mass] 31.7 pg 26.7 - 34.0 pg [facility] MCHC (RBC) [Mass/Vol] 33.8 g/dL 29.9 - 35.2 g/dL [facility] MCV (RBC) [Entitic vol] 93.8 fL 81.0 - 99.0 fL [facility] MONOCYTES ABSOLUTE AUTO 0.5 [facility] Monocytes/100 WBC (Bld) 5.3 % 1.7 - 12.0 % [facility] NEUTROPHILS ABSOLUTE AUTO 5.8 [facility] Neutrophils/100 WBC (Bld) 65.7 % 43.0 - 75.0 % [facility] Platelet mean volume (Bld) [Entitic vol] 10 fL 9.5 - 13.5 fL [facility] Relayr TBH EO # 0.6 [facility] TBH PLT 236 [facility] TBH RBC 4.67 [facility] TBH WBC 8.9 [facility] CL[facility] [place] [employer] [place] 08-10-2024 L Specimen: [id number] Received: 08/10/24 Status: CAROL Hoang Num: [id number] Spec Type: Surgical Subm Dr: Jose Rodriguez Tissues: A Products of Conception - Spontaneous or Missed (CONTENTS OF CONCEPT Procedures: HE/Odell Flores/Agusto L4 Age/ Patient Sex Location Account Attending Physician Vimal Funes 24/ LABELL [id number] Jose Rodriguez SPEC NUM: [id number] RECD: 08/10/24 STATUS: CAROL HOANG NUM: [id number] CAROLIN: 08/10/[address] [facility] [address]: Jose Rodriguez ENTERED: 08/10/[address]: Rafia,Lab SPEC TYPE: Surgical DEPT: MONICA ALTMAN ENTERED BY: [id number] RECV BY: [id number] ORDERED: HE/2, Gross/Micro L4 ORDERED: HE/2, Gross/Micro [...] villi and decidua. No tissue is identified. Carroter sections of the chorionic villi are submitted in cassette A1 with technical sales representative sections of the decidua is submitted in cassette A2. (2, ss, [id number]) CPT Codes 82029 Specimen: [id number] Received: 08/10/24 Status: CAROL Hoang Num: [id number] Spec Type: Surgical Subm Dr: Jose Rodriguez Tissues: A Products of Conception - Spontaneous or Missed (CONTENTS OF CONCEPT Procedures: HE/2, Gross/Micro L4 Patient: Vimal Funes [id number] (Continued) Signed (signature on file) Josh Aragon MD 08/13/24 1647 Normal [facility] TB PREG QUANT HCGon 024 HCG QUANTITATIVE 240 mIU/mL [facility] lthcare Comment on above: 5-50 0.2-1 WEEK 50-500 1-2 WEEKS 100-5,000 2-3 WEEKS 500-10,000 3-4 WEEKS 1,000-50,000 4-5 WEEKS 10,000-100,000 5-6 WEEKS 15,000-200,000 6-8 WEEKS 10,000-100,000 2-3 MONTHS CLINISYNC NOM Healthcar e ALL CBC WITH AUTO DIFFon BASOPHILS ABSOLUTE AUTO 0.1 [facility] Healthcare Basophils/100 WBC (Bld) 0.5 % 0.2 - 2.0 % [facility] Eosinophils/100 WBC (Bld) 2.8 % 0.9 - 7.0 % [facility] Erythrocyte distribution width (RBC) [Ratio] 11.9 % 11.0 - 15.0 % [facility] Hematocrit (Bld) [Volume fraction] 44.7 % 36.0 - 48.0 % [facility] Hemoglobin (Bld) [Mass/Vol] 15.3 g/dL 12.0 - 16.0 g/dL [facility] IMMATURE GRANULOCYTES ABS AUTO 0.03 [facility] Immature granulocytes/100 WBC (Bld) 0.3 % 0.0 - 0.5 % [facility] Interpretation and review of laboratory results Abnormal [facility] LYMPHOCYTES ABSOLUTE AUTO 1.6 [facility] Lymphocytes/100 WBC (Bld) 14.9 % Low 20.5 - 60.0 % [facility] MCH (RBC) [Entitic mass] 31.7 pg 26.7 - 34.0 pg [facility] MCHC (RBC) [Mass/Vol] 34.2 g/dL 29.9 - 35.2 g/dL [facility] MCV (RBC) [Entitic vol] 92.7 fL 81.0 - 99.0 fL [facility] MONOCYTES ABSOLUTE AUTO 0.4 [facility] Monocytes/100 WBC (Bld) 3.7 % 1.7 - 12.0 % [facility] NEUTROPHILS ABSOLUTE AUTO 8.2 High [facility] Neutrophils/100 WBC (Bld) 77.8 % High 43.0 - 75.0 % [facility] Platelet mean volume (Bld) [Entitic vol] 10 fL 9.5 - 13.5 fL [facility] TBH EO # 0.3 [facility] PLT 263 [facility] RBC 4.82 [facility] WBC 10.6 [facility] CLINISYNC No Panel Informationon 07-21 [facility] DRUG SCREEN RAPID (URINE )on 07-21-2024 AMPHETAMINE SCREEN URINE Negative NEGATIVE [facility] BARBITURATES SCREEN URINE Negative NEGATIVE [facility] BENZODIAZEPINES SCREEN URINE Negative NEGATIVE [facility] BUPRENORPHINE SCREEN URINE Negative NEGATIVE [facility] Comment on above: DRUG CLASS [...] 300 ng/mL CANNABINOID SCREEN URINE Negative NEGATIVE [facility] COCAINE SCREEN URINE Negative NEGATIVE [facility] METHADONE SCREEN URINE Negative NEGATIVE [facility] METHAMPHETAMINES SCREEN URINE Negative NEGATIVE [facility] OPIATE SCREEN URINE Negative NEGATIVE [facility] OXYCODONE SCREEN URINE Negative NEGATIVE [facility] PHENCYCLIDINE SCREEN URINE Negative NEGATIVE [facility] TRICYCLIC ANTIDEPRESSANT URINE Negative NEGATIVE [facility] REEFLEX IF POSITIVE CLINISYNC HCG ( test) Ql (U)o n 06-29-2024 Interpretation and review of laboratory results Abnormal [facility] Preg Test, Ur Positive [facility] Urinalysis macro (dipstick) panel (U)on 06-29-2024 Bilirubin, UA Negative Negative - 4(70) +++ mg/dL [facility] Blood, UA Negative Negative - 50 Jason/mcL [facility] Clarity, UA Clear [facility] re Color, UA Yellow [facility] Healthcar e Glucose, UA Negative Negative - 1999(110) ++++ mg/dL [facility] Interpretation and review of laboratory results Normal [facility] Ketones, UA Negative Negative - 160(16) ++++ mg/dL [facility] Leukocytes, UA Negative Negative - 500+++ Carlos/mcL [facility] Nitrite, UA Negative Negative - Positive [facility] pH, UA 7.0 5 - 9 [facility] Healthcar e Protein, UA Negative Negative - 1999(20) ++++ mg/dL [facility] Spec Grav, UA 1.015 1 - 1.03 [facility] Urobilinogen, UA 0.2 0.2 - 12 mg/dL [facility] XR hand RT min 3V*on 023 XR hand RT min 3V* [facility] [employer] Other XR hand RT min 3V* [facility] [employer] Other XR hand RT min 3V* [address] [facility] [employer] Other XR hand RT min 3V* CASSIE Tinoco [address] [employer] Other XR hand RT min 3V* XRay Report [employer] Other XR hand RT min 3V* Signed [employer] Other XR hand RT min 3V* Patient: Vimal Funes MR#: [id number] [employer] Other XR hand RT min 3V* 18 [employer] Other XR hand RT min 3V* : 2000 Acct:[id number] [employer] Other XR hand RT min 3V* Age/Sex: 22 / F ADM Date: 12/26/22 [employer] Other XR hand RT min 3V* Loc: XDUCLY Room: Type: [facility] [employer] Other XR hand RT min 3V* Attending Dr: Jennifer GIL [employer] Other XR hand RT min 3V* Copies to: JEFFERY Rodriguez [employer] Other XR hand RT min 3V* Ordering Provider: JEFFERY Rodriguez [employer] Other XR hand RT min 3V* Date of Service: 12/26/22 [employer] Other XR hand RT min 3V* XR/XR hand RT min 3V*: RIGHT HAND INJURY [employer] Other XR hand RT min 3V* RIGHT HAND - 4 views [employer] Other XR hand RT min 3V* REASON FOR EXAM: Patient had right thumb hyperextended yesterday when trying to open the door. Now [employer] Other XR hand RT min 3V* with pain. [employer] Other XR hand RT min 3V* COMPARISON: None [employer] Other XR hand RT min 3V* FINDINGS: [employer] Other XR hand RT min 3V* No focal soft tissue abnormality. There appears to be avulsion fracture involving the base of the [employer] Other XR hand RT min 3V* distal phalanx of the thumb. Joint spaces appear maintained. No bony erosions. [employer] Other XR hand RT min 3V* XR/XR hand RT min 3V* [employer] Other XR hand RT min 3V* IMPRESSION: [employer] Other XR hand RT min 3V* AVULSION FRACTURE INVOLVING THE BASE OF THE DISTAL PHALANX OF THE THUMB. [employer] Other XR hand RT min 3V* Impression dictated by: Bulmaro Arias Jr., D.O.12/26/2022 1:44 PM [employer] Other XR hand RT min 3V* Dictation Location: [place] [address] [employer] Other XR hand RT min 3V* Transcribed By: LYNETTE 12/26/22 1344 [employer] Other XR hand RT min 3V* Dictated By: Bulmaro Arias Jr, DO 12/26/22 1343 [employer] Other XR hand RT min 3V* Signed By: [employer] Other XR hand RT min 3V* 12/26/22 1344 [employer] Other PAP ACOG PANEL 2: 22 to 30on 11-09-2022 . . Normal [facility] Comment on above: Performed By: #### [id number] ####[facility] [address] [place] [id number] Mancini Age Gdln ACOG Testing 21-29 Normal [facility] Comment on above: Performed By: #### [id number] ####[facility] [address] [place], [place] [id number] Mancini DIAGNOSIS: Comment Normal [facility] Comment on above: Result Comment: NEGA TIVE FOR INTRAEPITHELIAL LESION OR MALIGNANCY. Performed By: #### [id number] ####[facility] [address] [place], [place] [address]Dr. Donis Mancini Methodology: Comment Normal [facility] Comment on above: Result Comment: This liquid based ThinPrep(R) pap test was screened with the use of an image guided system. Performed By: #### [id number] ####[facility] [address] [place], [place] [address]DrGene Mancini Note: Comment Normal [facility] Comment on above: Result Comment: The Pap smear is a screening test designed to aid in the detection of premalignant and malignant conditions of the uterine cervix. It is not a diagnostic procedure and should not be used as the sole means of detecting cervical cancer. Both false-positive and false-negative reports do occur. . Performed By: #### [id number] ####[facility] [address] [place], [place] [address]DrGene Mancini Performed by: Comment [facility] Comment on above: Result Comment: Zuleima Lin, Rfid Manager (ASCP) Performed By: #### [id number] ####[facility] [address] [place], [place] [id number]. Donis Mancini Reflex Criteria: Comment [facility] Comment on above: Result Comment: The HPV DNA reflex criteria were not met with this specimen result therefore, no HPV testing was performed. . Performed By: #### [id number] ####[facility] [address] [place], [place] [id number] Mancini Specimen adequacy: Comment Normal [facility] Comment on above: Result Comment: Sati sfactory for evaluation. Endocervical and/or squamous metaplastic cells (endocervical component) are present. Performed By: #### 4 [id number] ####[facility] [address] [place] [address]Dr. Donis Mancini Cytology Cervical or vaginal smear or scraping studyOrdered By: Jael Nix on 11-02-2022 [facility] CBC AUTO DIFFon 08-11-2022 BASO # 0.0 103/ul Normal 0.0-0.1 [facility] Comment on above: Performed By: #### C T/NGNA #### [facility] Laboratory [address] [place] [address] Dr. Donis Mancini Basophils/100 WBC (Bld) 0.2 % Normal 0.2-2.0 [facility] Comment on above: Performed By: #### C T/NGNA #### [facility] [address] [place] [address] Dr. Donis Mancini EO # 0.1 103/ul Normal 0.0-0.7 [facility] Comment on above: Performed By: #### C T/NGNA #### [facility] [address] [place] [address] Dr. Donis Mancini Eosinophils/100 WBC (Bld) 0.5 % Critically low 0.9-7.0 [facility] Comment on above: Performed By: #### C T/NGNA #### [facility] [address] [place] [address] Dr. Donis Mancini Erythrocyte distribution width (RBC) [Ratio] 12.5 % Normal 11.0-15.0 [facility] Comment on above: Performed By: #### C T/NGNA #### [facility] [address] [place] [address] Dr. Donis Mancini Hematocrit (Bld) [Volume fraction] 35.9 % Critically low 36.0-48.0 [facility] Comment on above: Performed By: #### C T/NGNA #### [facility] [address] [place] [address] Dr. Donis Mancini Hemoglobin (Bld) [Mass/Vol] 12.4 g/dL Normal 12.0-16.0 [facility] Comment on above: Result Comment: michelet ent delivered Performed By: #### C T/NGNA #### [facility] [address] [place] [address] Dr. Donis Mancini IG # 0.10 10e3/ul Critically high 0.00-0.03 [facility] Comment on above: Performed By: #### C T/NGNA #### [facility] [address] [place] [address] Dr. Donis Mancini IG % 0.5 % Normal 0.0-0.5 [facility] Comment on above: Performed By: #### C T/NGNA #### [facility] [address] [place] [address] Dr. Donis Mancini LYMPH # 1.5 103/ul Normal 1.2-3.8 [facility] Comment on above: Performed By: #### C T/NGNA #### [facility] [address] [place] [address] Dr. Donis Mancini Lymphocytes/100 WBC (Bld) 7.6 % Critically low 20.5-60.0 [facility] Comment on above: Performed By: #### C T/NGNA #### [facility] [address] [place] [address] Dr. Donis Mancini MANUAL DIFF REQ NO Normal [facility] Comment on above: Performed By: #### C T/NGNA #### [facility] [address] [place] [address] Dr. Donis Mancini MCH (RBC) [Entitic mass] 32.2 pg Normal 26.7-34.0 [facility] Comment on above: Performed By: #### C T/NGNA #### [facility] [address] [place] [address] Dr. Donis Mancini MCHC (RBC) [Mass/Vol] 34.5 g/dL Normal 29.9-35.2 [facility] Comment on above: Performed By: #### C T/NGNA #### [facility] [address] [place] [address] [address] Donis Mancini MCV (RBC) [Entitic vol] 93.2 fL Normal 81.0-99.0 [facility] Comment on above: Performed By: #### C T/NGNA #### [facility] [address] [place] [address] Dr. Donis Mancini MONO # 1.3 103/ul Critically high 0.3-0.8 [facility] Comment on above: Performed By: #### C T/NGNA #### [facility] [address] [place] [address] Dr. Donis Mancini Monocytes/100 WBC (Bld) 6.8 % Normal 1.7-12.0 [facility] Comment on above: Performed By: #### C T/NGNA #### [facility] [address] [place] [address] Dr. Donis Mancini NEUT # 16.2 103/ul Critically high 1.4-6.5 [facility] Comment on above: Performed By: #### C T/NGNA #### [facility] [address] [place] [address] Dr. Donis Mancini Neutrophils/100 WBC (Bld) 84.4 % Critically high 43.0-75.0 [facility] Comment on above: Performed By: #### C T/NGNA #### [facility] [address] [place] [address] Dr. Donis Mancini Platelet mean volume (Bld) [Entitic vol] 11.8 fL Normal 9.5-13.5 [facility] Comment on above: Performed By: #### C T/NGNA #### [facility] [address] [place] [address] Dr. Donis Mancini PLT 156 103/ul Normal 150-450 [facility] Comment on above: Performed By: #### C T/NGNA #### [facility] [address] [place] [address] Dr. Donis Mancini RBC 3.85 106/ul Critically low 4.20-5.40 [facility] Comment on above: Performed By: #### C T/NGNA #### [facility] [address], [place] [address] [address]. Donis Mancini WBC 19.2 103/ul Critically high 4.0-11.[address] [facility] Comment on above: Performed By: #### C T/NGNA #### [facility] [address], [place] [address] Dr. Donis Mancini Covid-19 PCR (CVDTB)on 07-27 SARS-CoV-2 (COVID-19) RNA INESSA+probe Ql (Unsp spec) Not detected Normal NOT DETECTED [facility] Comment on above: Result Comment: When [...] for this test is supported by the [employer] of Health and Human Service's declaration that [...] be used). Performed By: #### C VDTBH ####[facility] [address] [place], [place] [address]GiGene Mancini DRUG SCREEN RAPID (URINE)on 08-10-2022 AMP Negative Normal NEGATIVE [facility] Comment on above: Performed By: #### D RUGRPD ####[facility] [address] [place], [place] [address]DiGene Mancini BAR Negative Normal NEGATIVE [facility] Comment on above: Performed By: #### D RUGRPD ####[facility] [address] [place], [place] [address]RdGene Mancini BUP Negative Normal NEGATIVE [facility] Comment on above: Performed By: #### D RUGRPD ####[facility] [address] [place] [id number]. Donis Mancini BZO Negative Normal NEGATIVE [facility] Comment on above: Performed By: #### D RUGRPD ####[facility] [address] [place] [id number]. Donis Mancini ALEXA Negative Normal NEGATIVE [facility] [facility] Comment on above: Performed By: #### D RUGRPD ####[facility] [address] [place], [place] [address]Dr. Donis Mancini CUT-OFFS SEE BELOW Normal [facility] Comment on above: Result Comment: AMP (Amphetamine): 500ng/mL, BAR (Barbituates): 200 ng/mL, BZO (Benzodiazepines): 150 ng/mL, BUP (Buprenorphine): 10 ng/mL, ALEXA (Cocaine): 150 ng/mL, mAMP (Methamphetamine): 500 ng/mL, MTD (Methadone): 200 ng/mL, OPI (Opiates): 100 ng/mL, OXY (Oxycodone): 100 ng/mL, PCP (Phencyclidine): 25 ng/mL, PPX (Propoxyphene): 300 ng/mL, THC (Cannabinoids): 50 ng/mL, TCA (Trycyclic Antidepressants): 300 ng/mL Performed By: #### D RUGRPD ####[facility] [address] [place], [place] [address]Dr. Donis Mancini DRUG CUT HEADER DRUG CLASS TEST SYSTEM CUT-OFF CONCENTRATIONS ARE FOLLOWS: Normal [facility] Comment on above: Performed By: #### D RUGRPD ####[facility] [address] [place] [id number]. Donis Mancini mAMP Negative Normal NEGATIVE [facility] Comment on above: Performed By: #### D RUGRPD ####[facility] [address] [place] [address]Dr. Donis Mancini MTD Negative Normal NEGATIVE [facility] Comment on above: Performed By: #### D RUGRPD ####[facility] [address] [place], [place] [id number]. Donis Mancini OPI Negative Normal NEGATIVE [facility] Comment on above: Performed By: #### D RUGRPD ####[facility] [address] [place] [address]Dr. Donis Mancini OXY Negative Normal NEGATIVE [facility] Comment on above: Performed By: #### D RUGRPD ####[facility] [address] [place] [address]Dr. Donis Mancini PCP Negative Normal NEGATIVE [facility] Comment on above: Performed By: #### D RUGRPD ####[facility] [address] [place] [address]Dr. Donis Mancini PPX Negative Normal NEGATIVE [facility] Comment on above: Performed By: #### D RUGRPD ####[facility] [address] [place] [address]Dr. Donis Mancini TCA Negative Normal NEGATIVE [facility] Comment on above: Performed By: #### D RUGRPD ####[facility] [address] [place] [address]Dr. Donis Mancini THC Negative Normal NEGATIVE [facility] Comment on above: Performed By: #### D RUGRPD ####[facility] [address] [place], [place] [address]Dr. Donis Mancini TYPE AND SCREENon 08-10-2022 TYPE AND SCREEN Negative Normal [facility] Comment on above: Performed By: #### T NS ####[facility] [address] [place], [place] [address]Dr. Donis Mancini US PREG BIOPHY W NON [...] profile score 8.0. Electronically authenticated by: ESTEFANY Leiva: 2022-08-10 07:18 Normal [facility] US PREG GROWTHon 08-10-2022 US PREG [...] ESTEFANY BENNETT Date: 2022-08-10 07:16 Normal [facility] CBC AUTO DIFFon 08-09-2022 BASO # 0.0 103/ul Normal 0.0-0.1 [facility] Comment on above: Performed By: #### C BC ####[facility] [address] [place], [place] [address]Dr. Donis Mancini Basophils/100 WBC (Bld) 0.2 % Normal 0.2-2.0 [facility] Comment on above: Performed By: #### C BC ####[facility] [address] [place] [address]Dr. Donis Mancini EO # 0.4 103/ul Normal 0.0-0.7 [facility] Comment on above: Performed By: #### C BC ####[facility] K[address]wowpx[address] [place], [place] [address]Dr. Donis Mancini Eosinophils/100 WBC (Bld) 2.8 % Normal 0.9-7.0 [facility] Comment on above: Performed By: #### C BC ####[facility] [address] [place] [id number]. Donis Mancini Erythrocyte distribution width (RBC) [Ratio] 12.2 % Normal 11.0-15.0 [facility] Comment on above: Performed By: #### C BC ####[facility] [address] [place] [address]Dr. Donis Mancini Hematocrit (Bld) [Volume fraction] 41.4 % Normal 36.0-48.0 [facility] Comment on above: Performed By: #### C BC ####[facility] [address] [place], [place] [address]Dr. Donis Mancini Hemoglobin (Bld) [Mass/Vol] 14.4 g/dL Normal 12.0-16.0 [facility] Comment on above: Performed By: #### C BC ####[facility] [address] [place], [place] [address]Dr. Donis Mancini IG # 0.06 10e3/ul Critically high 0.00-0.03 [facility] Comment on above: Performed By: #### C BC ####[facility] [address] [place], [place] [address]Dr. Donis Mancini IG % 0.5 % Normal 0.0-0.5 [facility] Comment on above: Performed By: #### C BC ####[facility] [address]fem[address] [place], [place] [address]Dr. Donis Mancini LYMPH # 1.5 103/ul Normal 1.2-3.8 [facility] Comment on above: Performed By: #### C BC ####[facility] J[address] [place], [place] [address]Dr. Donis Mancini Lymphocytes/100 WBC (Bld) 11.7 % Critically low 20.5-60.0 [facility] Comment on above: Performed By: #### C BC ####[facility] [address] [place], [place] [address]Dr. Donis Mancini MANUAL DIFF REQ NO Normal [facility] Comment on above: Performed By: #### C BC ####[facility] [address] [place] [id number]. Donis Mancini MCH (RBC) [Entitic mass] 31.9 pg Normal 26.7-34.0 [facility] Comment on above: Performed By: #### C BC ####[facility] [address] [place] [id number]. Donis Mancini MCHC (RBC) [Mass/Vol] 34.8 g/dL Normal 29.9-35.2 [facility] Comment on above: Performed By: #### C BC ####[facility] [address] [place] [id number]. Donis Live MCV (RBC) [Entitic vol] 91.8 fL Normal 81.0-99.0 [facility] Comment on above: Performed By: #### C BC ####[facility] [address] [place], [place] [address]Dr. Donis Mancini MONO # 1.0 103/ul Critically high 0.3-0.8 [facility] Comment on above: Performed By: #### C BC ####[facility] [address] [place] [address]Dr. Donis Mancini Monocytes/100 WBC (Bld) 7.5 % Normal 1.7-12.0 [facility] Comment on above: Performed By: #### C BC ####[facility] [address] [place] [address]Dr. Laceyjavi Mancini NEUT # 10.0 103/ul Critically high 1.4-6.[address] [facility] Comment on above: Performed By: #### C BC ####[facility] [address] [place] [id number]. Donis Mancini Neutrophils/100 WBC (Bld) 77.3 % Critically high 43.0-75.0 [facility] Comment on above: Performed By: #### C BC ####[facility] [address] [place], [place] [id number]. Donis Mancini Platelet mean volume (Bld) [Entitic vol] 11.6 fL Normal 9.5-13.5 [facility] Comment on above: Performed By: #### C BC ####[facility] [address] [place], [place] [address]Vw. Donis Mancini PLT 184 103/ul Normal 150-450 [facility] Comment on above: Performed By: #### C BC ####[facility] [address] [place], [place] [address]Dm. Donis Mancini RBC 4.51 106/ul Normal 4.20-5.40 [facility] Comment on above: Performed By: #### C BC ####[facility] [address] [place], [place] [address]Lo. Donis Mancini WBC 12.9 103/ul Critically high 4.0-11.0 [facility] Comment on above: Performed By: #### C BC ####[facility] [address] [place], [place] [address]Je. Donis Mancini LDHon 08-09-2022 LDH 167 U/L Normal 81-234 [facility] Comment on above: Performed By: #### C T/NGNA #### [facility] [address] [address] [address] Donis Mancini PROF 14(COMP METB)on 022 Albumin [Mass/Vol] 2.7 g/dL Critically low 3.4-5.[address] [facility] Comment on above: Performed By: #### C T/NGNA #### [facility] [address] [address] [address] Donis Mancini Albumin/Globulin [Mass ratio] 0.6 {ratio} Normal [facility] Comment on above: Performed By: #### C T/NGNA #### [facility] [address] [address] [address] Donis Mancini ALP [Catalytic activity/Vol] 176 U/L Critically high 46-116 [facility] Comment on above: Performed By: #### C T/NGNA #### [facility] [address] [address] [address] Donis Mancini ALT [Catalytic activity/Vol] 20 U/L Normal 14-59 [facility] Comment on above: Performed By: #### C T/NGNA #### [facility] [address] [address] [address] Donis Mancini Anion gap [Moles/Vol] 12.9 mmol/L Normal Th [facility] Comment on above: Performed By: #### C T/NGNA #### [facility] [address] [address] [address] Donis Mancini AST [Catalytic activity/Vol] 20 U/L Normal 15-37 [facility] Comment on above: Performed By: #### C T/NGNA #### [facility] [address] [address] [address] Donis Mancini Bilirubin [Mass/Vol] 0.1 mg/dL Critically low 0.2-1.0 [facility] Comment on above: Performed By: #### C T/NGNA #### [facility] [address] [address] [address] Donis Mancini Calcium [Mass/Vol] 9.1 mg/dL Normal 8.5-10.1 [facility] Comment on above: Performed By: #### C T/NGNA #### [facility] [address] [address] [address] Donis Mancini Chloride [Moles/Vol] 104 mmol/L Normal 98-107 [facility] Comment on above: Performed By: #### C T/NGNA #### [facility] [address] [address] [address] Donis Mancini CO2 [Moles/Vol] 22.9 mmol/L Normal 21.0-32.0 [facility] Comment on above: Performed By: #### C T/NGNA #### [facility] [address] [address] [address] Donis Mancini Creatinine [Mass/Vol] 0.43 mg/dL Critically low 0.55-1.02 [facility] Comment on above: Performed By: #### C T/NGNA #### [facility] [address] [address] [address] Donis Mancini EGFR-AF SRI LANKAN >60 Normal >=60 [facility] Comment on above: Performed By: #### C T/NGNA #### [facility] [address] [address] [address] Donis Mancini EGFR-NON AF SRI LANKAN >60 Normal >=60 [facility] Comment on above: Performed By: #### C T/NGNA #### [facility] [address] [address] [address] Donis Mancini Globulin (S) [Mass/Vol] 4.2 g/dL Normal [facility] Comment on above: Performed By: #### C T/NGNA #### [facility] [address] [address] [address] Donis Mancini Glucose [Mass/Vol] 95 mg/dL Normal 74-106 [facility] Comment on above: Performed By: #### C T/NGNA #### [facility] [address] [address] [address] Donis Mancini Potassium [Moles/Vol] 3.8 mmol/L Normal 3.5-5.1 [facility] Comment on above: Performed By: #### C T/NGNA #### [facility] [address] [address] [address] Donis Mancini Protein [Mass/Vol] 6.9 g/dL Normal 6.4-8.2 [facility] [place] [facility] Comment on above: Performed By: #### C T/NGNA #### [facility] [address] [address] [address] Donis Mancini Sodium [Moles/Vol] 136 mmol/L Normal 136-145 [facility] [place] [facility] Comment on above: Performed By: #### C T/NGNA #### [facility] [address] [address] [address] Donis Mancini Urea nitrogen [Mass/Vol] 10.0 mg/dL Normal 7.0-18.0 [facility] Comment on above: Performed By: #### C T/NGNA #### [facility] [address] [address] [address] Donis Mancini Urea nitrogen/Creatinine [Mass ratio] 23.3 mg/mg Normal [facility] Comment on above: Performed By: #### C T/NGNA #### [facility] [address] [place] [address] Dr. Donis Mancini URIC ACID SERUMon 08-09-2022 Urate [Mass/Vol] 3.6 mg/dL Normal 2.6-6.0 [facility] Comment on above: Performed By: #### C T/NGNA #### [facility] [address] [place] [address] Dr. Donis Mancini CBC AUTO DIFFon 08-07-2022 BASO # 0.0 103/ul Normal 0.0-0.1 [facility] Comment on above: Performed By: #### U AMIC #### [facility] [address] [place] [address] Dr. Donis Mancini Basophils/100 WBC (Bld) 0.2 % Normal 0.2-2.0 [facility] Comment on above: Performed By: #### U AMIC #### [facility] [address] [place] [address] Dr. Donis Mancini EO # 0.2 103/ul Normal 0.0-0.7 [facility] Comment on above: Performed By: #### U AMIC #### [facility] [address] [place] [address] Dr. Donis Mancini Eosinophils/100 WBC (Bld) 1.8 % Normal 0.9-7.0 [facility] Comment on above: Performed By: #### U AMIC #### [facility] [address] [place] [address] Dr. Donis Mancini Erythrocyte distribution width (RBC) [Ratio] 12.3 % Normal 11.0-15.0 [facility] Comment on above: Performed By: #### U AMIC #### [facility] [address] [place] [address] Dr. Donis Mancini Hematocrit (Bld) [Volume fraction] 45.7 % Normal 36.0-48.0 [facility] Comment on above: Performed By: #### U AMIC #### [facility] [address] [address] [address] Donis Mancini Hemoglobin (Bld) [Mass/Vol] 16.0 g/dL Normal 12.0-16.0 [facility] Comment on above: Performed By: #### U AMIC #### [facility] [address] [address] [address] Donis Mancini IG # 0.07 10e3/ul Critically high 0.00-0.03 [facility] Comment on above: Performed By: #### U AMIC #### [facility] [address] [address] [address] Donis Mancini IG % 0.5 % Normal 0.0-0.5 [facility] Comment on above: Performed By: #### U AMIC #### [facility] [address] [address] [address] Donis Mancini LYMPH # 1.5 103/ul Normal 1.2-3.8 [facility] Comment on above: Performed By: #### U AMIC #### [facility] [address] [address] [address] Donis Mancini Lymphocytes/100 WBC (Bld) 11.2 % Critically low 20.5-60.0 [facility] Comment on above: Performed By: #### U AMIC #### [facility] [address] [address] [address] Donis Mancini MANUAL DIFF REQ NO Normal [facility] Comment on above: Performed By: #### U AMIC #### [facility] [address] [address] [address] Donis Mancini MCH (RBC) [Entitic mass] 32.0 pg Normal 26.7-34.0 [facility] Comment on above: Performed By: #### U AMIC #### [facility] [address] [address] [address] Donis Mancini MCHC (RBC) [Mass/Vol] 35.0 g/dL Normal 29.9-35.2 [facility] Comment on above: Performed By: #### U AMIC #### [facility] [address] [address] [address] Donis Mancini MCV (RBC) [Entitic vol] 91.4 fL Normal 81.0-99.0 [facility] Comment on above: Performed By: #### U AMIC #### [facility] [address] [address] [address] Donis Mancini MONO # 0.9 103/ul Critically high 0.3-0.8 [facility] Comment on above: Performed By: #### U AMIC #### [facility] [address] [address] [address] Donis Mancini Monocytes/100 WBC (Bld) 6.3 % Normal 1.7-12.0 [facility] Comment on above: Performed By: #### U AMIC #### [facility] [address] [place] [address] Dr. Donis Mancini NEUT # 10.9 103/ul Critically high 1.4-6.[address] [facility] Comment on above: Performed By: #### U AMIC #### [facility] [address] [address] [address] Donis Mancini Neutrophils/100 WBC (Bld) 80.0 % Critically high 43.0-75.0 [facility] Comment on above: Performed By: #### U AMIC #### [facility] [address] [place] [address] Dr. Donis Mancini Platelet mean volume (Bld) [Entitic vol] 11.5 fL Normal 9.5-13.5 [facility] Comment on above: Performed By: #### U AMIC #### [facility] [address] [address] [address] Donis Mancini PLT 182 103/ul Normal 150-450 [facility] Comment on above: Performed By: #### U AMIC #### [facility] [address] [address] [address] Donis Mancini RBC 5.00 106/ul Normal 4.20-5.40 [facility] Comment on above: Performed By: #### U AMIC #### [facility] [address] [address] [address] Donis Mancini WBC 13.6 103/ul Critically high 4.0-11.0 [facility] Comment on above: Performed By: #### U AMIC #### [facility] [address] [address] [address] Donis Mancini LDHon 08-07-2022 LDH 171 U/L Normal 81-234 [facility] Comment on above: Performed By: #### C MP, URIC, LDH ####[facility] [address] [place] [address]Dr. Donis Mancini PROF 14(COMP METB)on 022 Albumin [Mass/Vol] 2.9 g/dL Critically low 3.4-5.0 [facility] Comment on above: Performed By: #### C MP, URIC, LDH ####[facility] [address] [place] [address]Dr. Donis Mancini Albumin/Globulin [Mass ratio] 0.6 {ratio} Normal [facility] Comment on above: Performed By: #### C MP, URIC, LDH ####[facility] [address] [place] [address]Dr. Donis Mancini ALP [Catalytic activity/Vol] 192 U/L Critically high 46-116 [facility] Comment on above: Performed By: #### C MP, URIC, LDH ####[facility] [address] [place] [address]Dr. Donis Mancini ALT [Catalytic activity/Vol] 23 U/L Normal 14-59 [facility] Comment on above: Performed By: #### C MP, URIC, LDH ####[facility] [address] [place] [address]Dr. Donis Mancini Anion gap [Moles/Vol] 14.4 mmol/L Normal [facility] Comment on above: Performed By: #### C MP, URIC, LDH ####[facility] [address] [place] [address]Dr. Donis Mancini AST [Catalytic activity/Vol] 23 U/L Normal 15-37 [facility] Comment on above: Performed By: #### C MP, URIC, LDH ####[facility] [address] [place] [address]Dr. Donis Mancini Bilirubin [Mass/Vol] 0.2 mg/dL Normal 0.2-1.0 [facility] Comment on above: Performed By: #### C MP, URIC, LDH ####[facility] [address] [place] [address]Dr. Donis Mancini Calcium [Mass/Vol] 9.4 mg/dL Normal 8.5-10.1 [facility] Comment on above: Performed By: #### C MP, URIC, LDH ####[facility] [address] [place], [place] [address]Dr. Donis Mancini Chloride [Moles/Vol] 104 mmol/L Normal 98-107 [facility] Comment on above: Performed By: #### C MP, URIC, LDH ####[facility] [address] [place], [place] [address]Dr. Donis Mancini CO2 [Moles/Vol] 21.7 mmol/L Normal 21.0-32.[address] [facility] Comment on above: Performed By: #### C MP, URIC, LDH ####[facility] [address] [place], [place] [address]Dr. Donis Mancini Creatinine [Mass/Vol] 0.46 mg/dL Critically low 0.55-1.02 [facility] Comment on above: Performed By: #### C MP, URIC, LDH ####[facility] [address] [place], [place] [address]Dr. Donis Mancini EGFR-AF SRI LANKAN >60 Normal >=[address] [facility] Comment on above: Performed By: #### C MP, URIC, LDH ####[facility] [address] [place], [place] [address]Dr. Donis Mancini EGFR-NON AF SRI LANKAN >60 Normal >=60 [facility] Comment on above: Performed By: #### C MP, URIC, LDH ####[facility] [address] [place], [place] [address]Dr. Donis Mancini Globulin (S) [Mass/Vol] 4.6 g/dL Normal [facility] Comment on above: Performed By: #### C MP, URIC, LDH ####[facility] [address] [place] [address]Dr. Donis Mancini Glucose [Mass/Vol] 89 mg/dL Normal 74-106 [facility] Comment on above: Performed By: #### C MP, URIC, LDH ####[facility] [address] [place] [address]Dr. Donis Mancini Potassium [Moles/Vol] 4.1 mmol/L Normal 3.5-5.1 [facility] Comment on above: Performed By: #### C MP, URIC, LDH ####[facility] [address] [place] [address]Dr. Donis Mancini Protein [Mass/Vol] 7.5 g/dL Normal 6.4-8.2 [facility] Comment on above: Performed By: #### C MP, URIC, LDH ####[facility] [address] [place], [place] [address]Dr. Donis Mancini Sodium [Moles/Vol] 136 mmol/L Normal 136-145 [facility] Comment on above: Performed By: #### C MP, URIC, LDH ####[facility] [address] [place] [address]Dr. Donis Mancini Urea nitrogen [Mass/Vol] 8.0 mg/dL Normal 7.0-18.0 [facility] Comment on above: Performed By: #### C MP, URIC, LDH ####[facility] [address] [place] [address]Dr. Donis Mancini Urea nitrogen/Creatinine [Mass ratio] 17.4 mg/mg Normal [facility] Comment on above: Performed By: #### C MP, URIC, LDH ####[facility] [address] [place] [address]Dr. Donis Mancini PROTIMEon 08-07-2022 INR Coag (PPP) [Relative time] {INR} Normal [facility] Comment on above: Performed By: #### U AMIC #### [facility] [address] [place] [address] Dr. Donis Mancini INR GUIDELINES SEE BELOW Normal [facility] Comment on above: Result Comment: NICCI RED INR: 2.0 - 3.0 CONDITIONS NOT LISTED BELOW 2.5 - 3.5 FOR PROSTHETIC HEART VALVE REPLACEMENT 2.5 - 3.5 RECURRENT THROMBOSIS Performed By: #### U AMIC #### [facility] [address] [place] [address] Dr. Donis Mancini PT Coag (PPP) [Time] 9.8 s Normal 9.0-11.6 [facility] Comment on above: Performed By: #### U AMIC #### [facility] [address] [place] [address] Dr. Donis Mancini PTTon 08-07-2022 aPTT Coag (Bld) [Time] 28.5 s Normal 22.3-36.2 [facility] Comment on above: Performed By: #### U AMIC #### [facility] [address] [place] [address] Dr. Donis Mancini UA (CLEAN/CATCH) LINING IRONER/MICRO I F IND.on 08-07-2022 Bilirubin Ql (U) Negative Normal NEGATIVE [facility] Comment on above: Performed By: #### U AMIC #### [facility] [address] [place] [address] Dr. Donis Mancini Clarity (U) CLEAR Normal CLEAR [facility] Comment on above: Performed By: #### U AMIC #### [facility] [address] [place] [address] Dr. Donis Mancini Color (U) LT. YELLOW Normal YELLOW [facility] Comment on above: Performed By: #### U AMIC #### [facility] [address] [place] [address] Dr. Donis Mancini Glucose Ql (U) Negative Normal NEGATIVE [facility] Comment on above: Performed By: #### U AMIC #### [facility] [address] [place] [address] Dr. Donis Mancini Hemoglobin Ql (U) Negative Normal NEGATIVE [facility] Comment on above: Performed By: #### U AMIC #### [facility] [address] [address] [address] Donis Mancini Ketones Ql (U) Negative Normal NEGATIVE [facility] Comment on above: Performed By: #### U AMIC #### [facility] [address] [address] [address] Donis Mancini LEUKOCYTES Negative Normal NEGATIVE [facility] Comment on above: Performed By: #### U AMIC #### [facility] [address] [address] [address] Donis Mancini Nitrite Ql (U) Negative Normal NEGATIVE [facility] Comment on above: Performed By: #### U AMIC #### [facility] [address] [place] [address] Dr. Donis Mancini pH (U) 7.0 [pH] Normal 5-9 [facility] Comment on above: Performed By: #### U AMIC #### [facility] [address] [place] [address] Dr. Donis Mancini SPEC GRAVITY <=1.005 Abnormal 1.005-<=1.02 5 [facility] Comment on above: Performed By: #### U AMIC #### [facility] [address] [place] [address] Dr. Donis Mancini UA PROTEIN Negative Normal NEGATIVE/ TRACE [facility] Comment on above: Performed By: #### U AMIC #### [facility] [address] [address] [address] Donis Mancini UR MICRO IND NOT INDICATED Normal [facility] Comment on above: Performed By: #### U AMIC #### [facility] [address] [place] [address] Dr. Donis Mancini Urobilinogen Qn (U) 0.2 {Sarah'U}/dL Normal 0.2 - 1. 0 [facility] Comment on above: Performed By: #### U AMIC #### [facility] [address] [place] [address] Dr. Donis Mancini URIC ACID SERUMon 08-07-2022 Urate [Mass/Vol] 3.8 mg/dL Normal 2.6-6.[address] [facility] Comment on above: Performed By: #### C MP, URIC, LDH ####[facility] [address] [address]Dr. Donis Mancini URINE T PROTEIN CREAT RATIOo n 08-07-2022 UR TOTAL PROTEIN <6.0 Normal <=12.0 [facility] Comment on above: Performed By: #### C T/NGNA #### [facility] [address] [address] [address] Donis Mancini URINE CREAT 13.45 mg/dL Critically low 20.00-300.00 [facility] Comment on above: Performed By: #### C T/NGNA #### [facility] [address] [place] [address] Dr. Donis Mancini US PREG BIOPHY W [...] COCO STERN Date: 2022-08-01 08:31 Normal [facility] CHLAMYDIA/GONOCOCCUS INESSA (SW AB/URINE/PAPon 07-31-2022 Chlamydia trachomatis, INESSA Negative Normal Negative [facility] Comment on above: Performed By: #### C T/NGNA #### [facility] [address] [address] [address] Donis Mancini Neisseria gonorrhoeae, INESSA Negative Normal Negative [facility] Comment on above: Performed By: #### C T/NGNA #### [facility] [address] [address] [address] Donis Mancini VAGINITIS/VAGINOSIS DNA PROB Domenic 07-31-2022 Simeon species Negative Normal Negative The [facility] Comment on above: Performed By: #### V AGINT ####[facility] [address] [address]Dr. oDnis Mancini Gardnerella vaginalis Negative Normal Negative [facility] Comment on above: Performed By: #### V AGINT ####[facility] [address] [address]Dr. Donis Mancini Trichomonas vaginalis Negative Normal Negative [facility] Comment on above: Performed By: #### V AGINT ####[facility] [address] [address]Dr. Donis Mancini GROUP B STREP CULTUREon S. agalactiae Ag Ql (Unsp spec) Culture Observations: NEGATIVE FOR GROUP B STREPTOCOCCUS. Normal [facility] Comment on above: Performed By: #### G BSCX #### [facility] [address] [address] [address] Donis Mancini US PREG BIOPHY W [...] COCO STERN Date: 2022-07-25 09:41 Normal [facility] US PREG GROWTHon 07-11-2022 US PREG [...] ESTEFANY BENNETT Date: 2022-07-11 19:28 Normal [facility]on 06-26 SARS-CoV-2 (COVID-19) RNA INESSA+probe Ql (Unsp spec) Not detected Normal NOT DETECTED [facility] Comment on above: Result Comment: When [...] for this test is supported by the [employer] of [employer] and Human Service's declaration that [...] used). Performed By: #### C T/NGNA #### [facility] [address] [address] [address] Donis Mancini GTT 3 HR PREGon 06-03-2022 Glucose [Mass/Vol] 94 mg/dL Normal 74-106 [facility] Comment on above: Performed By: #### U AMIC #### [facility] [address], [place] [address] Dr. Donis Mancini Glucose [Mass/Vol] 147 mg/dL Normal [facility] Comment on above: Performed By: #### U AMIC #### [facility] [address] [address] [address] Donis Mancini Glucose [Mass/Vol] 159 mg/dL Normal [facility] Comment on above: Performed By: #### U AMIC #### [facility] [address] [address] [address] Donis Mancini Glucose [Mass/Vol] 151 mg/dL Normal [facility] Comment on above: Performed By: #### U AMIC #### [facility] [address] [place] [address] Dr. Donis Mancini GLUCOSE - 1HRon 05-21-2022 Glucose [Mass/Vol] 141 mg/dL Critically high 74-106 T [facility] Comment on above: Performed By: #### U AMIC #### [facility] [address] [place] [address] Dr. Donis Mancini HEMOGRAM AND PLATELon 2021 Hematocrit (Bld) [Volume fraction] 39.1 % Normal 36.0-48.0 [facility] Comment on above: Performed By: #### U AMIC #### [facility] [address] [place] [address] Dr. Donis Mancini Hemoglobin (Bld) [Mass/Vol] 13.1 g/dL Normal 12.0-16.0 [facility] Comment on above: Performed By: #### U AMIC #### [facility] [address] [place] [address] Dr. Donis Mancini MCH (RBC) [Entitic mass] 32.3 pg Normal 26.7-34.0 [facility] Comment on above: Performed By: #### U AMIC #### [facility] [address] [place] [address] Dr. Donis Mancini MCHC (RBC) [Mass/Vol] 33.5 g/dL Normal 29.9-35.2 [facility] Comment on above: Performed By: #### U AMIC #### [facility] [address] [place] [address] Dr. Donis Mancini MCV (RBC) [Entitic vol] 96.5 fL Normal 81.0-99.0 [facility] Comment on above: Performed By: #### U AMIC #### [facility] [address] [place] [address] Dr. Donis Mancini PLT 220 103/ul Normal 150-450 [facility] Comment on above: Performed By: #### U AMIC #### [facility] [address] [address] [address] Donis Mancini RBC 4.05 106/ul Critically low 4.20-5.40 [facility] Comment on above: Performed By: #### U AMIC #### [facility] [address] [place] [address] Dr. Donis Mancini WBC 12.8 103/ul Critically high 4.0-11.[address] [facility] Comment on above: Performed By: #### U AMIC #### [facility] [address] [place] [address] Dr. Donis Mancini US PREG BIOPHYSICAL NO [...] ESTEFANY BENNETT Date: 2022-05-11 06:25 Normal [facility] CULTURE URINEon 05-10-2022 CULTURE URINE Culture Observations: MODERATE GROWTH OF MIXED GENITAL RAMBO. NO POTENTIAL PATHOGENS SEEN. Normal [facility] Comment on above: Performed By: #### U RCX #### [facility] [address] [place] [address] Dr. Donis Mancini UA RANDOM W/MICROSCOPICon BACTERIA LARGE Abnormal NONE SEEN [facility] Comment on above: Performed By: #### U AMIC ####[facility] [address] [address]Dr. Donis Mancini Bilirubin Ql (U) Negative Normal NEGATIVE [facility] Comment on above: Performed By: #### U AMIC ####[facility] [address] [address]Dr. Donis Mancini CAST NONE SEEN Normal NONE SEEN [facility] Comment on above: Performed By: #### U AMIC ####[facility] [address] [address]Dr. Donis Mancini Clarity (U) CLEAR Normal CLEAR [facility] Comment on above: Performed By: #### U AMIC ####[facility] [address] [place], [place] [address]Dr. Donis Mancini Color (U) YELLOW Normal YELLOW [facility] Comment on above: Performed By: #### U AMIC ####[facility] [address] [address]Dr. Donis Mancini Crystals LM Nom (Urine sed) NONE SEEN Normal NONE SEEN [facility] Comment on above: Performed By: #### U AMIC ####[facility] [address] [place], [place] [address]Dr. Donis Mancini Epithelial cells LM Ql (Urine sed) MODERATE Abnormal NONE SEEN /RARE [facility] Comment on above: Performed By: #### U AMIC ####[facility] [address] [address]Dr. Donis Mancini Glucose Ql (U) 250 mg/dl Abnormal NEGATIVE [facility] Comment on above: Performed By: #### U AMIC ####[facility] [address] [address]Dr. Donis Mancini Hemoglobin Ql (U) TRACE-INTACT Abnormal NEGATIVE The [facility] Comment on above: Performed By: #### U AMIC ####[facility] [address] [address]Dr. Donis Mancini Ketones Ql (U) Negative Normal NEGATIVE [facility] Comment on above: Performed By: #### U AMIC ####[facility] [address] [address]Dr. Donis Mancini LEUKOCYTES LARGE Abnormal NEGATIVE [facility] Comment on above: Performed By: #### U AMIC ####[facility] [address] [address]Dr. Donis Mancini MUCOUS NONE SEEN Normal NONE SEEN [facility] Comment on above: Performed By: #### U AMIC ####[facility] [address] [place], [place] [address]Dr. Donis Live Nitrite Ql (U) Negative Normal NEGATIVE [facility] Comment on above: Performed By: #### U AMIC ####[facility] [address] [place], [place] [address]Dr. Laceyjavi Mancini pH (U) 6.0 [pH] Normal 5-9 [facility] Comment on above: Performed By: #### U AMIC ####[facility] [address] [place], [place] [address]Dr. Laceyjavi Mancini RBC 2-5 Abnormal 0-2 [facility] Comment on above: Performed By: #### U AMIC ####[facility] [address] [place], [place] [address]Dr. Laceyjavi Mancini SPEC GRAVITY <=1.005 Abnormal 1.005-<=1.02 5 [facility] Comment on above: Performed By: #### U AMIC ####[facility] [address] [place], [place] [address]Dr. Laceyjavi Mancini UA PROTEIN Negative Normal NEGATIVE/ TRACE [facility] Comment on above: Performed By: #### U AMIC ####[facility] [address] [place], [place] [address]Dr. Laceyjavi Mancini Urobilinogen Qn (U) 0.2 {Sarah'U}/dL Normal 0.2 - 1. 0 [facility] Comment on above: Performed By: #### U AMIC ####[facility] [address] [place], [place] [address]Dr. Donis Mancini WBC 10-20 Abnormal NONE SEEN [facility] Comment on above: Performed By: #### U AMIC ####[facility] [address] [address]Dr. Donis Mancini CULTURE URINEon 04-27-2022 CULTURE URINE Culture Observations: LIGHT GROWTH OF MIXED GENITAL RAMBO. NO POTENTIAL PATHOGENS SEEN. Normal [facility] Comment on above: Performed By: #### U RCX ####[facility] [address] [address]Dr. Donis Live UA (CLEAN/CATCH) LINING IRONER/MICRO I F IND.on 04-27-2022 Bilirubin Ql (U) Negative Normal NEGATIVE [facility] Comment on above: Performed By: #### U ACSIND, ICRO ####[facility] [address] [address]Dr. Donis Live Clarity (U) CLEAR Normal CLEAR [facility] Comment on above: Performed By: #### U ACSIND, ICRO ####[facility] [address] [place], [place] [address]Dr. Donis Mancini Color (U) LT. YELLOW Normal YELLOW [facility] Comment on above: Performed By: #### U ACSIND, ICRO ####[facility] [address] [place], [place] [address]Dr. Laceyjavi Live Glucose Ql (U) Negative Normal NEGATIVE [facility] Comment on above: Performed By: #### U ACSIND, UMICRO ####[facility] [address] [place], [place] [address]Dr. Donis Mancini Hemoglobin Ql (U) Negative Normal NEGATIVE [facility] Comment on above: Performed By: #### U ACSIND, UMICRO ####[facility] [address] [place], [place] [address]Dr. Donis Mancini Ketones Ql (U) Negative Normal NEGATIVE [facility] Comment on above: Performed By: #### U ACSIND, UMICRO ####[facility] [address] [place], [place] [address]Dr. Donis Mancini LEUKOCYTES SMALL Abnormal NEGATIVE [facility] Comment on above: Performed By: #### U ACSIND, UMICRO ####[facility] [address] [address]Dr. Donis Mancini Nitrite Ql (U) Negative Normal NEGATIVE [facility] Comment on above: Performed By: #### U DONNA DAMON ####[facility] [address] [address]Dr. Donis Mancini pH (U) 7.0 [pH] Normal 5-9 [facility] Comment on above: Performed By: #### U LORETTA DAMONRO ####[facility] [address] [address]Dr. Donis Live SPEC GRAVITY 1.015 Normal 1.005-<=1.02 5 [facility] Comment on above: Performed By: #### U DONNA DAMON ####[facility] [address] [address]Dr. Donis Live UA PROTEIN Negative Normal NEGATIVE/ TRACE [facility] Comment on above: Performed By: #### DONNA MONIQUE ####[facility] [address] [place], [place] [address]Dr. Donis Live UR MICRO IND INDICATED Normal [facility] Comment on above: Performed By: #### U DONNA DAMON ####[facility] [address] [place], [place] [address]Dr. Donis Live Urobilinogen Qn (U) 0.2 {Sarah'U}/dL Normal 0.2 - 1. 0 [facility] Comment on above: Performed By: #### U DONNA DAMON ####[facility] [address] [address]Dr. Donis Live URINE MICROSCOPIC ONLYon BACTERIA MODERATE Abnormal NONE SEEN [facility] Comment on above: Performed By: #### U LORETTA DAMONRO ####[facility] [address] [address]Dr. Laceyjavi Mancini Bacteria identified Cx Nom (U) INDICATED Normal [facility] Comment on above: Performed By: #### U DONNA DAMON ####[facility] [address] [place], [place] [id number]. Donis Mancini CAST NONE SEEN Normal NONE SEEN [facility] Comment on above: Performed By: #### U NELSON UMICRO ####[facility] [address] [address]Dr. Donis Mancini Crystals LM Nom (Urine sed) NONE SEEN Normal NONE SEEN [facility] Comment on above: Performed By: #### U NELSON UMICRO ####[facility] [address] [address]Dr. Donis Mancini Epithelial cells LM Ql (Urine sed) MODERATE Abnormal NONE SEEN /RARE [facility] Comment on above: Performed By: #### U NELSON UMICRO ####[facility] [address] [address]Dr. Donis Mancini MUCOUS NONE SEEN Normal NONE SEEN [facility] Comment on above: Performed By: #### U NELSON UMICRO ####[facility] [address] [address]Dr. Donis Mancini RBC NONE SEEN Abnormal 0-2 [facility] Comment on above: Performed By: #### U NELSON UMICRO ####[facility] [address] [address]Dr. Donis Mancini WBC 2-5 Abnormal NONE SEEN [facility] Comment on above: Performed By: #### U NELSON UMICRO ####[facility] [address] [address]Dr. Donis Mancini US KIDNEYSon 04-27-2022 US KIDNEYS [...] by: ANDREAS AN Date: 2022-04-27 17:48 Normal [facility] CULTURE URINEon 04-16-2022 CULTURE URINE Isolate [...] Trimethoprim/Sulfame thoxazole <=20 S F Normal [facility] Comment on above: Performed By: #### U RCX #### [facility] [address] [place] [address] Dr. Donis Mancini US PREG ANATOMY SINGLEon [...] ESTEFANY BENNETT Date: 2022-04-12 22:22 Normal [facility] UA RANDOM W/MICROSCOPICon BACTERIA SMALL Abnormal NONE SEEN [facility] Comment on above: Performed By: #### U AMIC #### [facility] [address] [place] [address] Dr. Donis Mancini Bilirubin Ql (U) Negative Normal NEGATIVE [facility] Comment on above: Performed By: #### U AMIC #### [facility] [address] [place] [address] Dr. Donis Mancini CAST NONE SEEN Normal NONE SEEN [facility] Comment on above: Performed By: #### U AMIC #### [facility] [address] [place] [address] Dr. Donis Mancini Clarity (U) CLEAR Normal CLEAR [facility] Comment on above: Performed By: #### U AMIC #### [facility] [address] [address] [address] Donis Mancini Color (U) LT. YELLOW Normal YELLOW [facility] Comment on above: Performed By: #### U AMIC #### [facility] [address] [place] [address] Dr. Donis Mancini Crystals LM Nom (Urine sed) NONE SEEN Normal NONE SEEN [facility] Comment on above: Performed By: #### U AMIC #### [facility] [address] [place] [address] Dr. Donis Mancini Epithelial cells LM Ql (Urine sed) FEW Abnormal NONE SEEN /RARE [facility] Comment on above: Performed By: #### U AMIC #### [facility] [address] [address] [address] Donis Mancini Glucose Ql (U) Negative Normal NEGATIVE [facility] Comment on above: Performed By: #### U AMIC #### [facility] [address] [address] [address] Donis Mancini Hemoglobin Ql (U) Negative Normal NEGATIVE [facility] Comment on above: Performed By: #### U AMIC #### [facility] [address] [address] [address] Donis Mancini Ketones Ql (U) Negative Normal NEGATIVE [facility] Comment on above: Performed By: #### U AMIC #### [facility] [address] [place] [address] Dr. Donis Mancini LEUKOCYTES LARGE Abnormal NEGATIVE [facility] Comment on above: Performed By: #### U AMIC #### [facility] [address] [address] [address] Donis Mancini MUCOUS NONE SEEN Normal NONE SEEN [facility] Comment on above: Performed By: #### U AMIC #### [facility] [address] [address] [address] Donis Mancini Nitrite Ql (U) Negative Normal NEGATIVE [facility] Comment on above: Performed By: #### U AMIC #### [facility] [address] [address] [address] Donis Mancini pH (U) 5.5 [pH] Normal 5-9 [facility] Comment on above: Performed By: #### U AMIC #### [facility] [address] [address] [address] Donis Mancini RBC 0-2 Normal 0-2 [facility] Comment on above: Performed By: #### U AMIC #### [facility] [address] [place] [address] Dr. Donis Mancini SPEC GRAVITY <=1.005 Abnormal 1.005-<=1.02 5 [facility] Comment on above: Performed By: #### U AMIC #### [facility] [address] [address] [address] Donis Mancini UA PROTEIN Negative Normal NEGATIVE/ TRACE [facility] Comment on above: Performed By: #### U AMIC #### [facility] [id number] Donis Mancini Urobilinogen Qn (U) 0.2 {Sarah'U}/dL Normal 0.2 - 1. 0 [facility] Comment on above: Performed By: #### U AMIC #### [facility] [address] [address] [address] Donis Mancini WBC 5-10 Abnormal NONE SEEN [facility] Comment on above: Performed By: #### U AMIC #### [facility] [address] [address] [address] Donis Mancini HEP B SURFACE ANTIGEN SCREEN on 01-23-2022 HBsAg Screen Negative Normal Negative [facility] Comment on above: Performed By: #### U AMIC #### [facility] [address] [address] [address] Donis Mancini HEPATITIS C VIRUS AB W/ REFL EX QUANTon 01-23-2022 HCV AB 0.1 s/co ratio Normal 0.0-0.9 [facility] Comment on above: Performed By: #### H CVPCRR ####[facility] [address] [id number]. Donis Mancini Interpretation: Comment Normal [facility] Comment on above: Result Comment: Nega tive Not infected with HCV, unless recent infection is suspected or other evidence exists to indicate HCV infection. Performed By: #### H CVPCRR ####[facility] [address] [id number]. Donis Mancini HIV 1 AND 2 WITH REFLEXon HIV Screen 4th Generation wRfx Non-Reactive Normal Non Reactive [facility] [facility] Comment on above: Result Comment: HIV Negative HIV-1/HIV-2 antibodies and HIV-1 p24 antigen were NOT detected. There is no laboratory evidence of HIV infection. Performed By: #### H IV12 ####[facility] [id number] [address]Dr. Donis Mancini RPR QUANTon 01-23-2022 Rapid Plasma Reagin, Quant Non-Reactive Normal NonRea<1:1 [facility] Comment on above: Result Comment: Ashley catalan Note: This test does not meet current guidelines for screening and diagnosis of syphilis. This test is intended for following treatment response in patients being treated for syphilis infection. To screen for syphilis infection, a reflex cascade that includes both RPR and a treponema-specific assay should be utilized, such as Treponema pallidum (Syphilis) Screening Dupage (471362) or Rapid Plasma Reagin (RPR) Test With Reflex to Quantitative RPR and Confirmatory Treponema pallidum Antibodies (023583). Performed By: #### R PRQ ####[facility] [address] [address]Dr. Donis Mancini RUBELLA AB IGGon 01-23-2022 Rubella Antibodies, IgG 1.60 index Normal Immune >0.99 [facility] Comment on above: Result Comment: Non- immune <0.90 Equivocal 0.90 - 0.99 Immune >0.99 Performed By: #### U AMIC #### [facility] [address] [place] [address] Dr. Donis Mancini CBC AUTO DIFFon 01-22-2022 BASO # 0.1 103/ul Normal 0.0-0.1 [facility] Comment on above: Performed By: #### U AMIC #### [facility] [address] [place] [address] Dr. Donis Mancini Basophils/100 WBC (Bld) 0.5 % Normal 0.2-2.0 [facility] Comment on above: Performed By: #### U AMIC #### [facility] [address] [place] [address] Dr. Donis Mancini EO # 0.6 103/ul Normal 0.0-0.7 [facility] Comment on above: Performed By: #### U AMIC #### [facility] [address] [place] [address] Dr. Donis Mancini Eosinophils/100 WBC (Bld) 5.1 % Normal 0.9-7.0 [facility] Comment on above: Performed By: #### U AMIC #### [facility] [address] [place] [address] Dr. Donis Mancini Erythrocyte distribution width (RBC) [Ratio] 12.0 % Normal 11.0-15.0 [facility] Comment on above: Performed By: #### U AMIC #### [facility] [address] [place] [address] Dr. Donis Mancini Hematocrit (Bld) [Volume fraction] 45.8 % Normal 36.0-48.0 [facility] Comment on above: Performed By: #### U AMIC #### [facility] [address] [place] [address] Dr. Donis Mancini Hemoglobin (Bld) [Mass/Vol] 15.3 g/dL Normal 12.0-16.0 [facility] Comment on above: Performed By: #### U AMIC #### [facility] [address] [place] [address] Dr. Donis Mancini IG # 0.03 10e3/ul Normal 0.00-0.03 [facility] Comment on above: Performed By: #### U AMIC #### [facility] [address] [place] [address] Dr. Donis Mancini IG % 0.3 % Normal 0.0-0.5 [facility] Comment on above: Performed By: #### U AMIC #### [facility] [address] [place] [address] Dr. Donis Mancini LYMPH # 1.7 103/ul Normal 1.2-3.8 [facility] Comment on above: Performed By: #### U AMIC #### [facility] [address] [place] [address] Dr. Donis Mancini Lymphocytes/100 WBC (Bld) 15.9 % Critically low 20.5-60.0 [facility] Comment on above: Performed By: #### U AMIC #### [facility] [address] [place] [address] Dr. Donis Mancini MANUAL DIFF REQ NO Normal [facility] Comment on above: Performed By: #### U AMIC #### [facility] [address] [place] [address] Dr. Donis Mancini MCH (RBC) [Entitic mass] 31.5 pg Normal 26.7-34.0 [facility] Comment on above: Performed By: #### U AMIC #### [facility] [address] [place] [address] Dr. Donis Mancini MCHC (RBC) [Mass/Vol] 33.4 g/dL Normal 29.9-35.2 [facility] Comment on above: Performed By: #### U AMIC #### [facility] [address] [place] [address] Dr. Donis Mancini MCV (RBC) [Entitic vol] 94.2 fL Normal 81.0-99.0 [facility] Comment on above: Performed By: #### U AMIC #### [facility] [address] [place] [address] Dr. Donis Mancini MONO # 0.6 103/ul Normal 0.3-0.8 [facility] Comment on above: Performed By: #### U AMIC #### [facility] [address] [place] [address] Dr. Donis Mancini Monocytes/100 WBC (Bld) 5.8 % Normal 1.7-12.0 [facility] Comment on above: Performed By: #### U AMIC #### [facility] [address] [place] [address] Dr. Donis Mancini NEUT # 7.8 103/ul Critically high 1.4-6.5 [facility] Comment on above: Performed By: #### U AMIC #### [facility] [address] [place] [address] Dr. Donis Mancini Neutrophils/100 WBC (Bld) 72.4 % Normal 43.0-75.0 [facility] Comment on above: Performed By: #### U AMIC #### [facility] [address] [place] [address] Dr. Donis Mancini Platelet mean volume (Bld) [Entitic vol] 9.9 fL Normal 9.5-13.5 [facility] Comment on above: Performed By: #### U AMIC #### [facility] [address] [address] [address] Donis Mancini PLT 281 103/ul Normal 150-450 [facility] Comment on above: Performed By: #### U AMIC #### [facility] [address] [address] [address] Donis Mancini RBC 4.86 106/ul Normal 4.20-5.40 [facility] Comment on above: Performed By: #### U AMIC #### [facility] [address] [address] [address] Donis Mancini WBC 10.8 103/ul Normal 4.0-11.0 [facility] Comment on above: Performed By: #### U AMIC #### [facility] [address] [address] [address] Donis Mancini CULTURE URINEon 01-22-2022 CULTURE URINE Culture Observations: LIGHT GROWTH OF MIXED GENITAL RAMBO. NO POTENTIAL PATHOGENS SEEN. Normal [facility] Comment on above: Performed By: #### U RCX #### [facility] [address] [place] [address] Dr. Donis Mancini GLYCOHEMOGLOBIN A1Con 2021 ADA RECOMMENDATION SEE BELOW Normal [facility] Comment on above: Result Comment: ADA RECOMMENDED LIMIT 4.0 - 6.0 ADA THERAPEUTIC TARGET < 7.0 ACTION SUGGESTED > 7.0 Performed By: #### A 1C ####[facility] [address] [address]Dr. Donis Mancini Glucose [Mass/Vol] 100 mg/dL Normal [facility] Comment on above: Performed By: #### A 1C ####[facility] [id number] [id number]. Donis Mancini HbA1c (Bld) [Mass fraction] 5.1 % Normal 4.5-6.2 [facility] Comment on above: Performed By: #### A 1C ####[facility] [address] [place], [place] [address]Ri. Donis Mancini SEAN BOX TEST PT SEND OUTo n 01-22-2022 SENT TO REF LAB 01/22/2022 Normal [facility] Comment on above: Performed By: #### N BOX ####[facility] [address] [place], [place] [address]Ki. Donis Mancini TYPE AND SCREENon 01-22-2022 TYPE AND SCREEN Negative Normal [facility] Comment on above: Performed By: #### T NS #### [facility] [address], [place] [address] Dr. Donis Mancini US PREG TVon 01-17-2022 [...] COCO STERN Date: 2022-01-17 09:34 Normal [facility] Provider Letteron 04-06-2021 Provider Letter April 06, 2021 Dear Vimal, We have been trying to reach you with no success. It is important that you return our call regarding your appointment upon receiving this letter. Also, at the time of your call, please provide us with your current information. Thank you for your prompt attention to this matter. Sincerely, [facility] [place] [address] Normal [facility] Ambulatory Clinical Summaryo n 06-15-2021 Ambulatory Clinical Summary {[id number]}CD:[id number] Normal [facility] Ambulatory Clinical Summaryo n 03-05-2021 Ambulatory Clinical Summary {[id number]}CD:[id number] Normal [facility] Gynecology Phone Visit- Tele healthon [...] communication with the patient located at [address] [place] [phone], with no one else. 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 CODING DATE: 12/18/2020 FINAL [facility] STATUS: Home (Routine DC) PAYOR: Lory [...] Date Saved: 12/18/2020 12:44 pm Normal [facility] Physician Orderon 12-16-2020 Physician Order [id number] #[id number] Normal [facility] Rapid COVID Antigen ([facility])on 12-16-2020 Rapid COV Int NEG Ctl Pass Normal [facility] Comment on above: Performed By: #### 2 [id number] #### [facility] [address] [place] [address] Rapid COV Int POS Ctl Pass Normal [facility] Comment on above: Performed By: #### 2 [id number] #### [facility] [address] [place] [address] SARS-CoV-2 (COVID-19) RNA INESSA+probe Ql (Unsp spec) Detected Abnormal Not Detected [facility] Comment on above: Result Comment: Left a message for callback. 12/16/2020 11:42:47 EDT Results faxed to infection control. The [employer]? System for Rapid Detection of SARS-CoV-2 [...] or revoked sooner. Performed By: #### 2 [id number] #### [facility] [address] [place] [address] Employed in Healthcare Unknown Normal [facility] Comment on above: Performed By: #### 2 [id number] #### [facility] [address] [place] [address] First Test Unknown Normal [facility] Comment on above: Performed By: #### 2 [id number] #### [facility] [address] [place] [address] Hospitalized? NO Normal [facility] Comment on above: Performed By: #### 2 [id number] #### [facility] [address] [place] [address] ICU NO Normal [facility] Comment on above: Performed By: #### 2 [id number] #### [facility] [address] [place] [address] ? Unknown Normal [facility] Comment on above: Performed By: #### 2 [id number] #### [facility] [address] [place] [address] Resides in a Congregate Care Setting Unknown Normal [facility] Comment on above: Performed By: #### 2 [id number] #### [facility] [address] [place] [address] Symptomatic as defined by CDC YES Normal [facility] Comment on above: Performed By: #### 2 [id number] #### [facility] [address] [place] [address] [facility] Clinical Summary {[id number]}CD:[id number] Normal [facility] Vital Signs Date Time Vital Sign Value Performing Clinician Facility 04-30-2025 11:52-0400 Body mass index (BMI) [Ratio] 31 kg/m2 Rossana BISWAS Work Phone: [facility] 04-30-2025 11:52-0400 Body weight 79.38 kg Rossana BISWAS Work Phone: [facility] 04-30-2025 11:52-0400 Diastolic blood pressure 94 mm[Hg] Rossana BISWAS Work Phone: [facility] 04-30-2025 11:52-0400 Systolic blood pressure 140 mm[Hg] Rossana BISWAS Work Phone: [facility] 04-11-2025 15:38-0400 Body mass index (BMI) [Ratio] 30.2 kg/m2 Rossana Milwaukee PA Work Phone: [facility] 04-11-2025 15:38-0400 Body weight 77.34 kg Rossana Rachel PA Work Phone: [facility] 04-11-2025 15:38-0400 Diastolic blood pressure 100 mm[Hg] Rossana Milwaukee PA Work Phone: [facility] 04-11-2025 15:38-0400 Systolic blood pressure 142 mm[Hg] Rossana Milwaukee PA Work Phone: [facility] 03-14-2025 11:36-0400 Body mass index (BMI) [Ratio] 29.23 kg/m2 Jose Michael DO Work Phone: [facility] 03-14-2025 11:36-0400 Body weight 74.84 kg Jose Michael DO Work Phone: [facility] 03-14-2025 11:36-0400 Diastolic blood pressure 76 mm[Hg] Jose Michael DO Work Phone: [facility] 03-14-2025 11:36-0400 Systolic blood pressure 112 mm[Hg] Jose Michael DO Work Phone: [facility] 02-20-2025 16:08-0400 Body mass index (BMI) [Ratio] 28.83 kg/m2 Rossana Rachel PA Work Phone: [facility] 02-20-2025 16:08-0400 Body weight 73.82 kg Rossana Rachel PA Work Phone: [facility] 02-20-2025 16:08-0400 Diastolic blood pressure 82 mm[Hg] Rossana Milwaukee PA Work Phone: [facility] 02-20-2025 16:08-0400 Systolic blood pressure 110 mm[Hg] Rossana Milwaukee PA Work Phone: [facility] 01-14-2025 15:42-0400 Body mass index (BMI) [Ratio] 27.3 kg/m2 Jose Michael DO Work Phone: [facility] 01-14-2025 15:42-0400 Body weight 69.91 kg Jose Michael DO Work Phone: [facility] 01-14-2025 15:42-0400 Diastolic blood pressure 70 mm[Hg] Jose Michael DO Work Phone: [facility] 01-14-2025 15:42-0400 Systolic blood pressure 120 mm[Hg] Jose Michael DO Work Phone: [facility] 08-20-2024 10:55-0500 Body mass index (BMI) [Ratio] 25.93 kg/m2 Rossana Leach PA Work Phone: [facility] 08-20-2024 10:55-0500 Body weight 66.41 kg Rossana Leach PA Work Phone: [facility] 08-20-2024 10:55-0500 Diastolic blood pressure 70 mm[Hg] Rossana Leach PA Work Phone: [facility] 08-20-2024 10:55-0500 Systolic blood pressure 120 mm[Hg] Rossana Rachel PA Work Phone: [facility] 08-06-2024 09:38-0500 Body mass index (BMI) [Ratio] 25.47 kg/m2 Jose Michael DO Work Phone: [facility] 08-06-2024 09:38-0500 Body weight 65.23 kg Jose Michael DO Work Phone: [facility] 08-06-2024 09:38-0500 Diastolic blood pressure 70 mm[Hg] Jose Michael DO Work Phone: [facility] 08-06-2024 09:38-0500 Systolic blood pressure 120 mm[Hg] Jose Michael DO Work Phone: [facility] 06-29-2024 09:12-0400 Body mass index (BMI) [Ratio] 24.58 kg/m2 [facility] 06-29-2024 09:12-0400 Body weight 62.94 kg [facility] Nurse [facility] 06-29-2024 09:12-0400 Diastolic blood pressure 72 mm[Hg] [facility] 06-29-2024 09:12-0400 Systolic blood pressure 122 mm[Hg] [facility] Nurse [facility] 12-26-2022 13:45-0400 Body height 160.02 cm Jennifer Dudleymond Other [employer] Other 12-26-2022 13:45-0400 Body mass index (BMI) [Ratio] 27.45 kg/m2 Jennifer Huston Other [employer] Other 12-26-2022 13:45-0400 Body temperature 97 [degF] Jennifer Huston Other [employer] Other 12-26-2022 13:45-0400 Body weight 70.31 kg Jennifer Huston Other [employer] Other 12-26-2022 13:45-0400 Diastolic blood pressure 89 mm[Hg] Jennifer Dudleymond Other [employer] Other 12-26-2022 13:45-0400 Respiratory rate 18 /min Jennifer Huston Other [employer] Other 12-26-2022 13:45-0400 SaO2% (BldA) [Mass fraction] 100 % Jennifer Dudleymond Other [employer] Other 12-26-2022 13:45-0400 Systolic blood pressure 135 mm[Hg] Jennifer Betzaida Other [employer] Other Encounters Encounter Date Encounter Type Care Provider Facility Start: 05-06-2025 End: 05-06-2025 Clinisync Result Encounter Rossana BISWAS Work Phone: [facility] Unsolicited Start: 05-06-2025 End: 05-06-2025 Clinisync Result Encounter Rossana BISWAS Work Phone: [facility] Unsolicited Start: 05-04-2025 End: 05-04-2025 Clinisync Result Encounter Rossana Rachel PA Work Phone: [facility] Unsolicited Start: 05-04-2025 End: 05-04-2025 Clinisync Result Encounter Rossana Leach TRUE Work Phone: [facility] Unsolicited Start: 05-04-2025 End: 05-08-2025 Telephone encounter Jose Rodriguez Work Phone: [facility] Start: 04-30-2025 End: 04-30-2025 Bamboo flowsheet Rossana BISWAS Work Phone: [facility] Start: 04-30-2025 End: 04-30-2025 Bamboo flowsheet Rossana Leach TRUE Work Phone: [facility] Start: 04-30-2025 End: 04-30-2025 ambulatory ROSSANA RACHEL Not Available Start: 04-30-2025 End: 04-30-2025 Patient encounter status Rossana Rachel PA Work Phone: [facility] Work Phone: Start: 04-30-2025 End: 04-30-2025 flow sheet Rossana BISWAS Work Phone: [facility] Comment on above: BP check; -induced hypertension in third trimester (HHS-HCC); Gestational diabetes mellitus (GDM) in third trimester, gestational diabetes method of control unspecified (HHS-HCC) Start: 04-27-2025 End: 04-27-2025 Clinisync Result Encounter Rossana BISWAS Work Phone: [facility] Unsolicited Start: 04-27-2025 End: 04-27-2025 Clinisync Result Encounter Rossana BISWAS Work Phone: [facility] Unsolicited Start: 04-25-2025 End: 04-25-2025 flow sheet Rossana BISWAS Work Phone: [facility] Comment on above: Second trimester pre gnancy ([facility]); 27 weeks gestation of ([facility]); induced hypertension, antepartum ([facility]) Start: 04-25-2025 End: 04-25-2025 ambulatory ROSSANA LEACH Not Available Start: 04-25-2025 End: 04-25-2025 Bamboo flowsheet Rossana Leach PA Work Phone: [facility] Start: 04-25-2025 End: 04-25-2025 Bamboo flowsheet Rossana BISWAS Work Phone: [facility] Start: 04-11-2025 End: 04-11-2025 ambulatory ROSSANA LEACH Not Available Start: 04-11-2025 End: 04-11-2025 flow sheet Rossana BISWAS Work Phone: [facility] Comment on above: Second trimester pre gnancy ([facility]); 25 weeks gestation of ([facility]); Diabetes mellitus screening; Elevated BP without diagnosis of hypertension Start: 04-11-2025 End: 04-11-2025 Bamboo flowsheet Rossana BISWAS Work Phone: [facility] Start: 04-11-2025 End: 04-11-2025 Bamboo flowsheet Rossana Leach PA Work Phone: [facility] Start: 03-25-2025 End: 03-25-2025 Clinisync Result Encounter Jose Michael DO Work Phone: [facility] Unsolicited Start: 03-25-2025 End: 03-25-2025 Clinisync Result Encounter Jose Michael DO Work Phone: [facility] Unsolic[facility] Start: 03-14-2025 End: 03-14-2025 Bamboo flowsheet Jose Michael DO Work Phone: [facility] Start: 03-14-2025 End: 03-14-2025 Bamboo flowsheet Jose Michael DO Work Phone: [facility] Start: 03-14-2025 End: 03-14-2025 ambulatory JOSE MICHAEL Not Available Start: 03-14-2025 End: 03-14-2025 flow sheet Jose Michael DO Work Phone: [facility] Comment on above: Second trimester pre gnancy ([facility]); 21 weeks gestation of ([facility]) Start: 03-08-2025 End: 03-08-2025 Clinisync Result Encounter Jose Michael DO Work Phone: [facility] External Department Unsolicited Start: 03-08-2025 End: 03-08-2025 Clinisync Result Encounter Jose Michael DO Work Phone: [facility] External Department Unsolicited Start: 02-20-2025 End: 02-20-2025 Patient encounter procedure Rossana BISWAS Work Phone: [facility] Healthcare Start: 02-20-2025 End: 02-20-2025 flow sheet Rossana BISWAS Work Phone: [facility] Comment on above: Screening, , for anatomic survey; Well woman exam with routine gynecological exam; STD exposure; Second trimester ; 18 weeks gestation of ; Urinary frequency Start: 02-20-2025 End: 02-20-2025 ambulatory ROSSANA LEACH Not Available Start: 02-20-2025 End: 02-20-2025 Bamboo flowsheet Rossana BISWAS Work Phone: [facility] Start: 02-20-2025 End: 02-23-2025 Bamboo flowsheet Rossana BISWAS Work Phone: [facility] Start: 02-20-2025 End: 02-23-2025 Clinisync Result Encounter Rossana BISWAS Work Phone: [facility] External Department Unsolicited Start: 02-20-2025 End: 02-22-2025 [...] Start: 08-10-2024 End: 08-10-[address] [facility] Work Phone: Start: 08-10-2024 End: 08-10-2024 Departed Referred PHYSICIAN NO 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: [facility] Work [...] Date Procedure Procedure Detail Performing Clinician Start: 05-06-2025 [facility] TOTAL PROTEIN 24 HOUR URINE Rossana BISWAS Work Phone: Start: 05-04-2025 US OB BPP W NON-STRESS Rossana BISWAS Work Phone: Start: 05-04-2025 US OB GROWTH Rossana BISWAS Work Phone: Start: 05-04-2025 ALL CBC WITH AUTO DIFF Rossana BISWAS Work Phone: Start: 04-30-2025 Urnls dip stick/tabl et rgnt [...] 07-21-2024 [facility] DRUG SCREEN RAPI D (URINE) [facility] DO Work Phone: Start: 06-29-2024 End: 06-29-2024 Urnls dip stick/tablet rgnt non-auto w/o micrscp [facility] DO Work Phone: Start: 12-26-2022 Plain X-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 hand 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 Work Phone: Start: 11-02-2022 Cytp [...] 2:40 PM EDT Routine [facility] [address] [place] [address] [place] [address] Jose Rodriguez DO [address] [place] [address] [facility] [place] [facility] Start: 04-30-2025 End: 10-31-2025 [...] control unspecified (HHS-HCC) Expected: 04/30/2025, Expires: 08/30/2025 [facility] Comment on above: Expected: 04/30/2025 , Expires: 08/30/2025 Start: 04-30-2025 End: 04-30-2025 Patient encounter procedure 04/30/2025 10:50 AM EDT Routine [facility] [place] [facility] [address] [place] [id number] Rossana Leach PA [address] [place] [address] [facility] [place] [facility] Start: 04-25-2025 End: 04-25-2025 [...] antepartum (HHS-HCC) Expected: 04/25/2025 (Approximate), Expires: 04/25/2026 [facility] Comment on above: Expected: 04/25/2025 (Approximate), Expires: 04/25/2026 Start: 04-25-2025 End: 04-25-2026 CBC W Auto Differential panel - Blood CBC and differential Lab Routine induced hypertension, antepartum (HHS-HCC) Expected: 04/25/2025 (Approximate), Expires: 04/25/2026 [facility] Comment on above: Expected: 04/25/2025 (Approximate), Expires: 04/25/2026 Start: 04-25-2025 End: 04-25-2026 Creatinine [Mass/volume] in Serum or Plasma Creatinine Lab Routine induced hypertension, antepartum (HHS-HCC) Expected: 04/25/2025 (Approximate), Expires: 04/25/2026 [facility] Work Phone: Comment on above: Expected: 04/25/2025 (Approximate), Expires: 04/25/2026 Start: 04-25-2025 End: 04-25-2026 Lactate dehydrogenase [Enzymatic activity/volume] in Serum or Plasma by Lactate to pyruvate reaction Lactate dehydrogenase Lab Routine induced hypertension, antepartum (HHS-HCC) Expected: 04/25/2025, Expires: 04/25/2026 [facility] Comment on above: Expected: 04/25/2025 , Expires: 04/25/2026 Start: 04-25-2025 End: 04-25-2026 Protein, urine, 24 hour Protein, urine, 24 hour Lab Routine induced hypertension, antepartum (HHS-HCC) Expected: 04/25/2025 (Approximate), Expires: 04/25/2026 [facility] Comment on above: Expected: 04/25/2025 (Approximate), Expires: 04/25/2026 Start: 04-25-2025 End: 04-25-2026 Pt and ptt Pt and ptt Lab Routine induced hypertension, antepartum (HHS-HCC) Expected: 04/25/2025, Expires: 04/25/2026 [facility] Comment on above: Expected: 04/25/2025 , Expires: 04/25/2026 Start: 04-25-2025 End: 04-25-2026 Urate [Mass/volume] in Serum or Plasma Uric acid Lab Routine induced hypertension, antepartum (HHS-HCC) Expected: 04/25/2025 (Approximate), Expires: 04/25/2026 [facility] Comment on above: Expected: 04/25/2025 (Approximate), Expires: 04/25/2026 Start: 04-25-2025 End: 04-25-2026 Urea nitrogen [Mass/volume] in Serum or Plasma BUN Lab Routine induced hypertension, antepartum (HHS-HCC) Expected: 04/25/2025, Expires: 04/25/2026 [facility] Comment on above: Expected: 04/25/2025 , Expires: 04/25/2026 Start: 04-11-2025 End: 04-11-2025 Patient encounter procedure 04/11/2025 3:30 PM EDT Routine [facility] OB [address] [place] [address] Rossana Leach PA [address] [place] [address] [facility] OB Start: 04-11-2025 End: 04-11-2026 CBC panel - Blood by Automated count CBC Lab Routine Diabetes mellitus screening Expected: 04/11/2025 (Approximate), Expires: 04/11/2026 [facility] Work Phone: Comment on above: Expected: 04/11/2025 (Approximate), Expires: 04/11/2026 Start: 04-11-2025 End: 04-11-2026 Measurement of glucose 1 hour after glucose challenge for glucose tolerance test Glucose tolerance, 1 hour Lab Routine Diabetes mellitus screening Expected: 04/11/2025 (Approximate), Expires: 04/11/2026 [facility] Comment on above: Expected: 04/11/2025 (Approximate), Expires: 04/11/2026 Start: 03-14-2025 End: 03-14-2025 Patient encounter procedure 03/14/2025 10:50 AM EDT Routine [facility] [address] [place] [address] Jose Rodriguez, DO [address] [place] [address] [facility] Start: 02-20-2025 End: 02-20-2025 [...] AM EDT Initial [facility] [address] [facility] [place] [address] [facility] Start: 12-14-2024 End: 12-14-2024 Professional / ancillary services management 12/14/2024 8:30 AM EDT Ancillary Procedure [facility] [address] [place] [phone] [facility] Start: 08-20-2024 End: 08-20-2024 Patient encounter procedure 08/20/2024 10:20 AM EST Office Visit [facility] [address] [place] [phone] Rossana Leach PA [address] [place], [place] [id number] [facility] OB Start: 08-06-2024 End: 08-06-2024 Patient encounter procedure 08/06/2024 9:10 AM EST [facility] [address] [place] [phone] Jose Rodriguez DO [address] [place] [place], [place] [id number] [facility] OB Start: 06-29-2024 End: 06-29-2025 ABO/Rh ABO/Rh Lab Routine Missed menses , unspecified gestational age Expected: 06/29/2024 (Approximate), Expires: 06/29/2025 [facility] Comment on above: Expected: 06/29/2024 (Approximate), Expires: 06/29/2025 Start: 06-29-2024 End: 06-29-2025 Blood type and Indirect antibody screen panel - Blood Type and screen Lab Routine Missed menses , unspecified gestational age Expected: 06/29/2024 (Approximate), Expires: 06/29/2025 [facility] Work Phone: Comment on above: Expected: 06/29/2024 (Approximate), Expires: 06/29/2025 Start: 06-29-2024 End: 06-29-2025 Drugs of abuse panel - Urine by Screen method Rapid drug screen, urine Lab Routine , unspecified gestational age Encounter for supervision of normal first in first trimester Expected: 06/29/2024 (Approximate), Expires: 06/29/2025 [facility] Comment on above: Expected: 06/29/2024 (Approximate), Expires: 06/29/2025 Start: 06-29-2024 End: 06-29-2025 US Pelvis transvaginal US OB transvaginal Imaging Routine Missed menses Expected: 06/29/2024 (Approximate), Expires: 06/29/2025 [facility] Comment on above: Expected: 06/29/2024 (Approximate), Expires: 06/29/2025 Start: 05-27-2024 Influenza vaccination Influenza Vacc ine (#1) [facility] Bacteria identified in Urine by Culture Urine culture Microbiology Routine Missed menses Ordered: 06/29/2024 [facility] Comment on above: Ordered: 06/29/2024 Bacteria identified in Urine by Culture Urine culture Microbiology Routine Urinary frequency Ordered: 02/20/2025 [facility] Comment on above: Ordered: 02/20/2025 CBC W Auto Different ial panel - Blood CBC and differential Lab Routine Missed menses , unspecified gestational age Ordered: 06/29/2024 [facility] Comment on above: Ordered: 06/29/2024 CHLAMYDIA TRACHOMATI S (GENITO/STI) CHLAMYDIA TRACHOMATIS (GENITO/STI) Lab Routine STD exposure Ordered: 02/20/2025 [facility] Comment on above: Ordered: 02/20/2025 Cytology Cervical or vaginal smear or scraping study Pap Smear Pathology and Cytology Routine Well woman exam with routine gynecological exam Ordered: 02/20/2025 [facility] Comment on above: Ordered: 02/20/2025 Hemoglobin A1c/Hemoglobin.total in Blood Hemoglobin A1c Lab Routine Missed menses , unspecified gestational age Ordered: 06/29/2024 [facility] Comment on above: Ordered: 06/29/2024 Hepatitis B virus beltran rface Ag [Presence] in Serum or Plasma by Immunoassay Hepatitis B surface antigen Lab Routine Missed menses , unspecified gestational age Ordered: 06/29/2024 [facility] Comment on above: Ordered: 06/29/2024 Hepatitis C virus Ab [Presence] in Serum or Plasma by Immunoassay Hepatitis C antibody Lab Routine Missed menses , unspecified gestational age Ordered: 06/29/2024 [facility] Comment on above: Ordered: 06/29/2024 HIV-1/HIV-2 antigen/antibody combination immunoassay HIV-1 and HIV-2 antibodies Lab Routine Missed menses , unspecified gestational age Ordered: 06/29/2024 [facility] Comment on above: Ordered: 06/29/2024 Neisseria gonorrhoea e DNA [Presence] in Unspecified specimen by INESSA with probe detection Neisseria gonorrhea DNA probe, direct Lab Routine STD exposure Ordered: 02/20/2025 [facility] Comment on above: Ordered: 02/20/2025 Reagin Ab [Presence] in Serum by RPR RPR Lab Routine Missed menses , unspecified gestational age Ordered: 06/29/2024 [facility] Comment on above: Ordered: 06/29/2024 Rubella antibody, IgG Rubella an tibody, IgG Lab Routine Missed menses , unspecified gestational age Ordered: 06/29/2024 [facility] Comment on above: Ordered: 06/29/2024 SURESWAB(R) ADVANCED VAGINITIS PLUS, TMA SURESWAB(R) ADVANCED VAGINITIS PLUS, TMA Pathology and Cytology Routine STD exposure Ordered: 02/20/2025 [facility] Work Phone: Comment on above: Ordered: 02/20/2025 Immunizations Immunization Date Immunization Notes Care Provider Ryne abrams 08-28-2002 influenza virus vacc ine, unspecified formulation Noms Nurse [facility] Payers Date Payer Category Payer Medicaid [employer] [place] [employer] [id number] 2023-Present [address] [place] [phone] [id number] 2023 Medicaid (Managed Care) [employer] [id number] 2021 Blue Cross Blue Shield 1.2.8 [id number] 2021 Unknown BCBS BCBS [id number] 2021-Present [phone] [address] [place] [address] [id number]. [id number] 2001 Unknown [id number] 2.16.840.1.165776.3.579.2. 593 2001 Unknown [id number] 2.16.840.1.957379.3.579.2. 593 2001 Unknown [id number] 2.16.840.1.031680.3.579.2. 593 2001 Unknown [id number] 2.16.840.1.482952.3.579.2. 593 2001 Unknown [id number] 2.16.840.1.924980.3.579.2. 593 2001 Unknown [id number] 2.16.840.1.051083.3.579.2. 593 2001 Unknown [id number] 2.16.840.1.756355.3.579.2. 593 2001 Unknown [id number] 2.16.840.1.086887.3.579.2. 593 2001 Unknown [id number] 2.16.840.1.147303.3.579.2. 593 2001 Unknown [id number] 2.16.840.1.258768.3.579.2. 593 2001 Unknown [id number] 2.16.840.1.370918.3.579.2. 593 2001 Unknown [id number] 2.16.840.1.328456.3.579.2. 593 2001 Unknown [id number] 2.16.840.1.496893.3.579.2. 593 2001 Unknown [id number] 2.16.840.1.119281.3.579.2. 593 2001 Unknown [id number] 2.16.840.1.353042.3.579.2. 593 2001 Unknown [id number] 2.16.840.1.520988.3.579.2. 593 2001 Unknown [id number] 2.16.840.1.843404.3.579.2. 593 2001 Unknown [id number] 2.16.840.1.090707.3.579.2. 59 2001 Unknown [id number] 2.16.840.1.511076.3.579.2. 59 2001 Unknown [id number] 2.16.840.1.181147.3.579.2. 59 2001 Unknown [id number] 2.16.840.1.038452.3.579.2. 59 2001 Unknown [id number] 2.16840.1.822290.3.579.2. 125 2001 Unknown [id number] 2.16840.1.676287.3.579.2. 1258 2001 Unknown [id number] 2.16.840.1.722198.3.579.2. 1258 2001 Unknown [id number] 2.16.840.1.574495.3.579.2. 125 2001 Unknown [id number] 2.16.840.1.488778.3.579.2. 125 2001 Unknown [id number] 2.16.840.1.035271.3.579.2. 125 2001 Unknown [id number] 2.16.840.1.448787.3.579.2. 1258 2001 Unknown [id number] 2.16.840.1.204733.3.579.2. 125 2001 Unknown [id number] 2.16.840.1.467070.3.579.2. 1258 2001 Unknown [id number] 2.16.840.1.711133.3.579.2. 1259 2001 Unknown [id number] 2.16.840.1.218026.3.579.2. 1259 1959 Self-pay 1959 Unknown [id number] 1959 Unknown [id number] Unknown [id number] 2.16.840.1.664997.3.579.2. 593 Unknown [id number] 2.16.840.1.624078.3.579.2. 531 Social History Date Type Detail Facility Start: 10-13-2023 End: 06-29-2024 Sex Assigned At [facility] [employer] Other Start: 2000 Sex Assigned At Female F [facility] Start: 10-13-2023 Tobacco smoking stat [facility] Never smoked tobacco [facility] Start: 06-29-2024 End: 04-30-2025 Alcoholic beverage intake Current drinker of alcohol (finding) [facility] Start: 10-13-2023 End: 06-29-2024 History of Social function [facility] Start: 05-24-2024 [facility] Start: 2001 Sex assigned at Not on file [facility] Tobacco smoking stat [facility] Unknown if ever smoked [facility] Work Phone: Start: 08-11-2024 Sex Female (finding) [facility] Medical Equipment Procedure Code Equipment Code Equipment Origin al Text Equipment Identifier Dates 1 strip by In Vi tro route Daily Use in the morning prior to breakfast, 1 hour after each meal for a total of 4times daily. [id number] Start: 05-08-2025 End: 06-07-2025 1 each by In Vit ro route Daily Use to check FSBS four times daily [id number] Start: 05-08-2025 End: 06-07-2025 Clinical Notes 12-26-2022 to 05-07-2025 Telephone Encounter - Glenna Butler LPN - 05/07/2025 9:03 AM EDTTelephone Encounter - Glenna Butler LPN - 05/07/2025 9:03 AM TRUE Navarro - 04/30/2025 10:50 AM EDT Note Date & Type Note Facility 05-07-2025 Telephone encount er Note Called pt to let her know that she did not pass her 3 hour glucose test and that I would be sending in supplies and referring her to diabetic education. [facility] 05-07-2025 Miscellaneous Notes Formattin g of this note might be different from the original. Called pt to let her know that she did not pass her 3 hour glucose test and that I would be sending in supplies and referring her to diabetic education. documented in this encounter [facility] 04-30-2025 History of Presen t illness Narrative [...] resulted 2. -induced hypertension in third trimester ([facility]) O13.3 US biophysical profile w non stress test US OB follow up transabdominal approach labetalol (Normodyne) 300 MG tablet 3. Gestational diabetes mellitus (GDM) in third trimester, gestational diabetes method of control unspecified ([facility]) O24.419 US biophysical profile w non stress [...] of: TRUE Argueta documented in this encounter [facility] 04-25-2025 History of Presen t illness Narrative [...] Medical History: Diagnosis Date Anemia Gestational diabetes ([facility]) History of blood transfusion Lead poisoning Miscarriage ([facility]) Nonsmoker Post depression HISTORY PAST MEDICAL HISTORY SOCIAL HISTORY Past Medical History: Diagnosis Date Anemia Gestational diabetes (HHS-HCC) History of blood transfusion Lead poisoning Miscarriage ([facility]) Nonsmoker Post depression /anxiety Social History Tobacco [...] ASSESSMENT & PLAN ICD-10-CM 1. Second trimester ([facility]) Z34.92 2. 27 weeks gestation of ([facility]) Z3A.27 Patient presents for BP check. BP elevated today despite taking 100mg bid labetolol daily. We will increase to 200mg bid daily. Patient given labs and instructed to follow up with OB should she develop headache or vision changes Pt will follow up with DR Rodriguez next week Documented by TRUE Argueta on behalf of: TRUE Argueta documented in this encounter [facility] 04-11-2025 History of Presen t illness Narrative [...] ASSESSMENT & PLAN ICD-10-CM 1. Second trimester ([facility]) Z34.92 POCT urinalysis dipstick manually resulted 2. 25 weeks gestation of ([facility]) Z3A.25 3. Diabetes mellitus screening Z13.1 CBC [...] of: TRUE Argueta documented in this encounter [facility] 03-14-2025 History of Presen t illness Narrative [...] Medical History: Diagnosis Date Anemia Gestational diabetes ([facility]) History of blood transfusion Lead poisoning Miscarriage ([facility]) Nonsmoker Post depression HISTORY PAST MEDICAL HISTORY SOCIAL HISTORY Past Medical History: Diagnosis Date Anemia Gestational diabetes ([facility]) History of blood transfusion Lead poisoning Miscarriage ([facility]) Nonsmoker Post depression /anxiety Social History [...] nursing note reviewed. Exam conducted with a life guard present. Vitals: Estimated body mass index is 29.23 kg/m as calculated from the following: Height as of 01/06/23: 5' 3 . Weight as of this encounter: 165 lb. BP: 112/76 Patient's last menstrual period was 10/15/2024 (exact date). ASSESSMENT & PLAN ICD-10-CM 1. Second trimester ([facility]) Z34.92 POCT urinalysis dipstick manually resulted 2. 21 weeks gestation of ([facility]) Z3A.21 Patient presents today for a routine obstetrics appointment. Patient is currently 21w3d with a Estimated Date of Delivery: 07/22/25. Patient has no complaints at this time and will return to clinic in 4 weeks. Documented by Diamond Borja LPN on behalf of: Jose Rodriguez DO documented in this encounter [facility] 02-20-2025 History of Presen t illness [...] nursing note reviewed. Exam conducted with a life guard present. Vitals: Estimated body mass index is [...] of: TRUE Argueta documented in this encounter [facility] 01-14-2025 History of Presen t illness [...] nursing note reviewed. Exam conducted with a life guard present. Vitals: Estimated body mass index is [...] or undercooked meat, and stay away from [facility]. Patient has been consulted regarding any [...] Jose Rodriguez DO documented in this encounter [facility] 08-20-2024 History of Presen t illness [...] having a D&C Hysteroscopy performed at [facility] with Dr. Rodriguez. Pathology results was reviewed with the patient in great detail and all restrictions have been lifted. Follow Up: Patient is to return to the office for annual exam unless needed otherwise. Documented by TRUE Argueta on behalf of: TRUE Argueta documented in this encounter [facility] 08-06-2024 History of Presen t illness [...] nursing note reviewed. Exam conducted with a life guard present. Vitals: Estimated body mass index is [...] vaginal bleeding. Patient to discuss date with Database Administration Project Manager prior to leaving. Patient is able to obtain work note for the week and if longer is needed she will reach out to office. Documented by Diamond Borja LPN on behalf of: Jose Rodriguez DO documented in this encounter [facility] 06-29-2024 History of Presen t illness [...] blood transfusion Lead poisoning Nonsmoker Post depression ([facility]) Family History Problem Relation Name Age of [...] or undercooked meat, and stay away from [facility]. Patient has also been advised to [...] by: Whitney Peacock documented in this encounter [facility] 12-26-2022 Evaluation note Encounter Date Diagnosis [...] appointment to be seen soon as possible [employer] Other Evlyhation noteNo assessment information available [facility] Work Phone: evaluation note* Diagnosis Missed menses , unspecified gestational age Encounter for supervision of normal first in first trimester Nausea Nausea alone 7 weeks gestation of documented in this encounter [facility] RelayrEvaluation note* Diagnosis Miscarriage Unspecified spontaneous without mention of complication documented in this encounter [facility] RelayrEvaluation note* Diagnosis Postoperative examination Follow-up examination, following unspecified surgery documented in this encounter [facility] RelayrEvaluation note* Diagnosis 13 weeks gestation of Second trimester state, incidental documented in this encounter [facility] RelayrEvaluation note* Diagnosis Screening, , for anatomic survey Encounter for anatomic survey Well woman exam with routine gynecological exam Routine gynecological examination STD exposure Second trimester state, incidental 18 weeks gestation of Urinary frequency documented in this encounter [facility] RelayrEvaluation note* Diagnosis Second trimester ([facility]HCC) state, incidental 21 weeks gestation of ([facility]HCC) documented in this encounter [facility] RelayrEvaluation note* Diagnosis Second trimester (HHS-HCC) state, incidental 25 weeks gestation of ([facility]) Diabetes mellitus screening Screening for diabetes mellitus Elevated BP without diagnosis of hypertension documented in this encounter [facility] RelayrEvaluation note* Diagnosis Second trimester (HHS-HCC) state, incidental 27 weeks gestation of ([facility]HCC) induced hypertension, antepartum ([facility]HS-HCC) Transient hypertension of , antepartum documented in this encounter [facility] HealthcareEvaluation note* Diagnosis BP check Screening for hypertension -induced hypertension in third trimester ([facility]HS-HCC) Gestational diabetes mellitus (GDM) in third trimester, gestational diabetes method of control unspecified ([facility]HS-HCC) documented in this encounter [facility]* Diagnosis Gestational diabetes mellitus (GDM), antepartum, gestational diabetes method of control unspecified ([facility]HS-HCC) Elevated glucose tolerance test Impaired glucose tolerance test documented in this encounter [facility] Summary Purpose Family History No Family History Records FoundNo Family History Records FoundNo Family History Records FoundNo Family History Records Found Advance Directives Advance Directive Response Recorded Date/ Time Advance Directives No December 27 6:21am Additional Source Comments INFORMATION SOURCE (unrecogn ized section and content) DATE CREATED AUTHOR [facility]/24/2021 [facility] DATE CREATED AUTHOR AUTHOR'S ORGANIZ ATION 12/07/2022 [facility] DATE CREATED AUTHOR AUTHOR'S ORGANIZ ATION 08/15/2024 [facility] DATE CREATED AUTHOR AUTHOR'S ORGANIZ ATION 05/03/2025 [facility] dical Specialists EPIC REASON FOR VISIT (unrecogniz ed section and content) Reason Comments Initial Visit Reason Comments Miscarriage Reason Comments Post-op Visit Reason Comments Routine Visit Reason Comments Blood Pressure Check Care Teams (unrecognized sec tion and content) Team Status: Inactive Member Role Status Dates Jennifer Huston , WHEEL LOADER OPERATOR-C Attending Provider Active Tie Tape Machine Operator Relationship Specialty Start Date End Date Vaishali Zapata MD [address] [place] [address] PCP - General Family Medicine 02/04/23 Tie Tape Machine Operator Relationship Specialty Start Date End Date Vaishali Zapata MD [address] [place] [address] PCP - General Family Medicine 02/04/23 Team Status: Active Member Role Status Dates PHYSICIAN NO FAMILY Primary Care Provider Active Team Status: Inactive Member Role Status Dates PHYSICIAN NO FAMILY Primary Care Provider Active Start: August 10, 2024 End: August 10, 2024 Jose Rodriguez DO Attending Provider Active Start : August 10, 2024 End: August 10, 2024 Tie Tape Machine Operator Relationship Specialty Start Date End Date Unallocated, [place] [address] PCP - General Family Medicine 08/03/24 Tie Tape Machine Operator Relationship Specialty Start Date End Date Unallocated, Arjun Vo MD [facility] FABIANO PETERS [facility] [place] [address] PCP - General Family Medicine 08/03/24 Tie Tape Machine Operator Relationship Specialty Start Date End Date Unallocated, Arjun Vo MD [facility] FABIANO PETERS [facility] [place] [address] PCP - General Family Medicine 08/03/24 Tie Tape Machine Operator Relationship Specialty Start Date End Date Unallocated, Arjun Vo MD [facility] FABIANO PETERS [facility] [place] [address] PCP - General Family Medicine 08/03/24 Tie Tape Machine Operator Relationship Specialty Start Date End Date Unallocated, Arjun Vo MD [facility] FABIANO PETERS [facility] [place] [address] PCP - General Family Medicine 08/03/24 Tie Tape Machine Operator Relationship Specialty Start Date End Date Unallocated, Arjun Vo MD [facility] FABIANO PETERS [facility] [place] [address] PCP - General Family Medicine 08/03/24 Tie Tape Machine Operator Relationship Specialty Start Date End Date Unallocated, Arjun Vo MD [facility] [place] [address] PCP - General Family Medicine 08/03/24 Tie Tape Machine Operator Relationship Specialty Start Date End Date Unallocated, Arjun Vo MD [facility] FABIANO PETERS [facility] [place] [place] [address] PCP - General Family Medicine 08/03/24 Tie Tape Machine Operator Relationship Specialty Start Date End Date Unallocated, MD Cj [place] FABIANO PETERS [facility] [place] [place] [address] PCP - General Family Medicine 08/03/24 Tie Tape Machine Operator Relationship Specialty Start Date End Date Unallocated, Arjun Vo MD [address] [place] [address] PCP - General Family Medicine 08/03/24 Tie Tape Machine Operator Relationship Specialty Start Date End Date Unallocated, Arjun Vo MD [address] [facility] [place] [address] PCP - General Family Medicine 08/03/24 Goals [...] PRIMARY CLINICAL RECORDS. [facility]. provides no warranty or guarantee of the accuracy or completeness of information in this document.
[2025-05-08 17:15] VITALS: BP 131/71; PULSE 73
== END 2025-05-08 17:37 | disposition home or self-care (01) ==
LOC: FBCO 16:59 → FBC 17:03
PROVIDERS: PCP Nurse Practitioner Family; Visit Provider Obstetrics & Gynecology
DX: O24.419 Gestational diabetes mellitus in pregnancy, unspecified control (principal); Z3A.29 29 weeks gestation of pregnancy
CPT/HCPCS: 59025

== ENCOUNTER 2025-05-09 13:50 | Observation (INO) | payer BC, OTHER, SELFPAY ==
--- OUTSIDE RECORDS SUMMARY | 2024-06-05 04:30 | XMS_ITS ---
Author Organization [facility] in [place] Address [address] [place] [address] Care Team Providers Care Surplus Property Disposal Agent Name Role Phone Jennifer Butts Primary Care Provider [phone] Allergies No Known Allergies Results Component Value [...] No Points 0 Interpretation Negative Vital Signs Blood pressure systolic 112 mm Hg 06/05/20 24 Blood pressure diastolic 70 mm Hg 024 Height 63 in 06/05/2024 Weight 137.6 lbs 06/05/2024 BMI 24.37 kg/m2 06/05/2024 Encounters Encounter Location Date Provider Diagnosis [facility] [address] [place] [address] 06/05/2024 Jennifer Butts Z33.1 and Wellness examination [...] Amber PIZANO MDOB: [birth year] (24 yo F)Acc No.[id number]:06/05/2024 New Patient Patient: Amber MADERA Provider: Lashawn Butts ([facility]), CLINICAL PROGRAMMER :2000 A ge:24 Y S ex:Female Date:06/05/2024 Address:[address] [place] [address] Check In:08:08 AM ESTCheck O ut:08:44 AM [...] Job and Family Services , front desk associate, Child services here to get established Sweetie, [...] (Check Out) true * Provider: Lashawn Butts ([facility]), CLINICAL PROGRAMMER Date: 0 06/05/2024 Generated for Yolisi ng/Famariig/eTransmitting on: 0 05/09/2025 01:53 PM EDT History and Physical Notes * HPI (History of Present Illness) Category Sub-Category Detail Notes Category Not es General OBGYN Michael , have 2 year old 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
--- OUTSIDE RECORDS SUMMARY | 2025-04-25 14:50 | XMS_ITS | Encounter Summary ---
Author Organization [facility] Address [address] [place] [address] Care Team Providers Care Auto Glass Worker Name Role Phone Unallocated, Noms Provider Primary Care Provi krissy Reason for Visit * Reason Comments Routine Visit Encounter Details Date Type Department Care Team (Late st Contact Info) Description 04/25/2025 2:50 PM EDT Office Visit ARJUN PANG [address] [place] [address] Rossana Ramos PA [address] [place], [facility] Second trimester ([facility]); 27 weeks gestation of ([facility]); induced hypertension, antepartum ([facility]) Social History Tobacco Use Types Packs/Day Years [...] on file documented as of this encounter Progress Notes * TRUE Argueta - 04/25/2025 2:50 PM EDT Reason for Appointment: Patient ID: Amber Funes is a 25 y.o. female who presents for Routine Visit Patient presents today for Return OB appointment. MEDICATIONS Current Outpatient Medications Medication Instructions labetalol (NORMODYNE) 100 mg, Oral, 2 times daily loratadine (CLARITIN) 10 mg, Daily Vit-DSS-Fe Fum-FA [...] History of blood transfusion Lead poisoning Miscarriage ([facility]) Nonsmoker Post depression HISTORY PAST MEDICAL [...] reviewed. Vitals: Estimated body mass index is 30.2 kg/m?? as calculated from the following: Height as of 01/06/23: 5' 3 . Weight as of 04/11/25: 170 lb 8 oz. BP: Patient's last menstrual period was 10/15/2024 (exact date). ASSESSMENT & PLAN ICD-10-CM 1. Second trimester ([facility]) Z34.92 2. 27 weeks gestation of ([facility]) Z3A.27 Patient presents for BP check. BP elevated today despite taking 100mg bid labetolol daily. We will increase to 200mg bid daily. Patient given labs and instructed to follow up with OB should she develop headache or vision changes Pt will follow up with DR Rodriguez next week Documented by TRUE Argueta on behalf of: TRUE Argueta documented in this encounter Plan of Treatment Upcoming Encounters Date Type Department Care Team (Late st Contact Info) Description 05/14/2025 2:40 PM EDT Routine [facility] [address] [place] [address] Jose Rodriguez DO [address] [place] [place] [address] Scheduled Orders Name Type Priority Associated Diagnoses Orde r Schedule Creatinine Lab Routine induced hypertension, antepartum (HHS-HCC) Expected: 04/25/2025 (Approximate), Expires: 04/25/2026 Protein, urine, 24 hour Lab Routine induced hypertension, antepartum (HHS-HCC) Expected: 04/25/2025 (Approximate), Expires: 04/25/2026 Pt and ptt Lab Routine induced hypertension, antepartum (HHS-HCC) Expected: 04/25/2025, Expires: 04/25/2026 CBC and differential Lab Routine induced hypertension, antepartum (HHS-HCC) Expected: 04/25/2025 (Approximate), Expires: 04/25/2026 Uric acid Lab Routine induced hypertension, antepartum (HHS-HCC) Expected: 04/25/2025 (Approximate), Expires: 04/25/2026 Lactate dehydrogenase Lab Routine induced hypertension, antepartum (HHS-HCC) Expected: 04/25/2025, Expires: 04/25/2026 ALT Lab Routine induced hypertension, antepartum (HHS-HCC) Expected: 04/25/2025 (Approximate), Expires: 04/25/2026 AST Lab Routine induced hypertension, antepartum (HHS-HCC) Expected: 04/25/2025 (Approximate), Expires: 04/25/2026 BUN Lab Routine induced hypertension, antepartum (HHS-HCC) Expected: 04/25/2025, Expires: 04/25/2026 documented as of this encounter Procedures Procedure Name Priority Date/Time Associated Diagnosis Comments POCT URINALYSIS DIPSTICK Routine 04/25/2025 3:12 PM EDT Second trimester (HHS-HCC) documented in this encounter Results * POCT urinalysis dipstick manually resulted (04/25/2025 3:12 PM EDT) Color, UA Yellow Clarity, UA Clear Glucose, UA Negative Negative - 2000(110) ++++ mg/dL Bilirubin, UA Negative Negative - 4(70) +++ mg/dL Ketones, UA Negative Negative - 160(16) ++++ mg/dL Spec Grav, UA 1.010 1 - 1.03 Blood, UA Negative Negative - 50 Jason/mcL pH, UA 6.5 5 - 9 Protein, UA Negative Negative - 2000(20) ++++ mg/dL Urobilinogen, UA 0.2 0.2 - 12 mg/dL Leukocytes, UA Negative Negative - 500+++ Carlos/mcL Nitrite, UA Negative Negative - Positive Urine 04/25/2025 3:12 PM EDT Rossana BISWAS POINT OF CARE TEST ENTER/EDIT OR DERABLES Final Result documented in this encounter Visit Diagnoses Diagnosis Second trimester ([facility]) state, incidental 27 weeks gestation of (HHS-HCC) induced hypertension, antepartum ([facility]) Transient hypertension of , antepartum documented in this encounter Care Teams Auto Glass Worker Relationship Specialty Start Date End Date Unallocated, Noms Provider, [address] [place] [address] PCP - General Family Medicine 08/03/24 documented as of this encounter
--- OUTSIDE RECORDS SUMMARY | 2025-04-30 10:50 | XMS_ITS | Encounter Summary ---
Author Organization [facility] Address [address] [place] [address] Care Team Providers Care Wildlife Ecology Professor Name Role Phone Unallocated, Noms Provider Primary Care Provi krissy Reason for Visit * Reason Comments Blood Pressure Check Encounter Details Date Type Department Care Team (Latest Contact Info) Description 04/30/2025 10:50 AM EDT Routine ARJUN [place] OBGYKeegan [address] [place] [address] Rossana Ramos PA [address] [facility] [address] [facility] [address] [place], [facility]11 BP check; -induced hypertension in third trimester ([facility]); Gestational diabetes mellitus (GDM) in third trimester, [...] History of blood transfusion Lead poisoning Miscarriage ([facility]) Nonsmoker Post depression HISTORY PAST MEDICAL HISTORY SOCIAL HISTORY Past Medical History: Diagnosis Date Anemia Gestational diabetes ([facility]-HCC) History of blood transfusion Lead poisoning Miscarriage ([facility]) Nonsmoker Post depression /anxiety Social History Tobacco [...] resulted 2. -induced hypertension in third trimester ([facility]) O13.3 US biophysical profile wnon stress test US OB follow up transabdominal approach labetalol (Normodyne) 300 MG tablet 3. Gestational diabetes mellitus (GDM) in third trimester, gestational diabetes method of control unspecified ([facility]) O24.419 US biophysical profile w non stress [...] PM EDT Routine [facility] Rafia OBGYN [address] [place] [phone] MichaelJose barrios, [address] [facility] [address] [place] [place] [address] Scheduled Orders Name Type Priority Associated Diagnoses [...] for hypertension -induced hypertension in third trimester ([facility]) Gestational diabetes mellitus (GDM) in third trimester, gestational diabetes method of control unspecified ([facility]) documented in this encounter Care Teams Wildlife Ecology Professor Relationship Specialty Start Date End Date Unallocated, Noms Provider, [address] [place] [address] PCP - General Family Medicine 08/03/24 documented as of this encounter
--- OUTSIDE RECORDS SUMMARY | 2025-05-09 13:53 | XMS_ITS | Encounter Summary ---
Author Organization [facility] Address [address] [place] [address] Care Team Providers Care Freight Engineer Name Role Phone Unallocated, Noms Provider Primary Care Provi krissy Encounter Details Date Type Department Care Team (Late st Contact Info) Description 04/27/2025 Clinisync Result Encounter [facility] External Department Unsolicited Rossana Ramos PA [address] [place], [facility]11 Social History Tobacco Use Types Packs/Day [...] PM EDT Routine [facility] [address] [facility] [place] [phone] Jose Rodriguez DO [address] [place], [facility]11 documented as of this encounter Procedures Procedure [...] BISWAS LAB BLOOD ORDERABLES Final Resul t [facility] * (ABNORMAL) ALL CBC WITH [...] on filedocumented in this encounter Care Teams Freight Engineer Relationship Specialty Start Date End Date Unallocated, Noms Provider, [address] [place] [address] PCP - General Family Medicine 08/03/24 documented as of this encounter
--- OUTSIDE RECORDS SUMMARY | 2025-05-09 13:53 | XMS_ITS | Clinical Summary ---
Author Organization [facility] Address [id number] [address] [place] [address] Care Team Providers Care Broadcast Operations Director Name Role Phone Unavailable Primary Care Provider [...] Info) Description 06/04/2025 1:00 PM EDT Appointment [facility] - Ultrasound [address] [place] [address] Jose Rodriguez, DO [address] [facility] [address] [place]ué [place] [address] Health Maintenance Due Date Last Done Comments Depression Screening 2013 Tobacco Screening 2013 Adult BMI Screening 2019 DTaP,Tdap and Td Vaccines (1 - Tdap) 2020 Pap Smear 2022 Influenza Vaccine 05/27/2025 Medical Devices Not on file
--- OUTSIDE RECORDS SUMMARY | 2025-05-09 13:53 | XMS_ITS | Encounter Summary ---
Author Organization [facility] Address [address] [place] [address] Care Team Providers Care Tear Down Man Name Role Phone Unallocated, Noms Provider Primary Care Provi krissy Encounter Details Date Type Department Care Team (Late st Contact Info) Description 04/30/2025 Bamboo flowsheet ARJUN PANG [address] [place] [address] Rossana Ramos PA [address] [place], [facility]11 Social History Tobacco Use Types Packs/Day [...] PM EDT Routine [facility] Rafia PANG [address] [place] [address] Michael, Jose, [address] Josué [place] [address] documented as of this encounter Visit Diagnoses Not on filedocumented in this encounter Care Teams Tear Down Man Relationship Specialty Start Date End Date Unallocated, Noms Provider, [place] [address] PCP - General Family Medicine 08/03/24 documented as of this encounter
--- OUTSIDE RECORDS SUMMARY | 2025-05-09 13:54 | XMS_ITS | Encounter Summary ---
Author Organization [facility] Address [address] [place] [address] Care Team Providers Care Haunted History Tour Guide Name Role Phone Unallocated, Noms Provider Primary Care Provi krissy Encounter Details Date Type Department Care Team (Late st Contact Info) Description 05/04/2025 Clinisync Result Encounter NOMS External Department Unsolicited Collin Leach PA [address] [place], [facility] [...] PM EDT Routine [facility] [address] [facility] [place] [phone] Jose Rodriguez DO [address] [place], [facility]11 documented as of this encounter Procedures Procedure Name Priority Date/Time Associated Diagnosis Comments US OB GROWTH 05/04/2025 12:08 PM EDT documented in this encounter Results * US OB GROWTH (05/04/2025 12:08 PM EDT) Anatomical Region Laterality Modality Other 05/04/2025 12:0 8 PM EDT Narrative 05/04/2025 12:11 [place] [address] Ultrasound Report Signed Patient: VIMAL PIZANO MR#: [id number] : 2000 Acct:[id number] Age/Sex: 25 / F ADM Date: 05/04/25 Loc: [facility] 250-[address]: Collin Leach Ordering Physician: Collin Leach Date of Service: 05/04/25 Procedure(s): US OB growth Accession Number(s): [id number] cc: Collin Leach; LUIS SEE [place] [id number] Patient Name: VIMAL PIZANO MRN: [id number] date: 2000 Sex: F Assigned Patient Location: [facility] Current Patient Location: [facility] Accession/Order Number: [id number] Exam Date: 05/04/2025 12:06 Report Date: 05/04/2025 [...] Jr., D.O. 05/04/2025 12:08 PM Dictation Location: [facility]-18 Electronically authenticated by: [id number] Y Date: 05/04/2025 12:08 Dictated By: Bulmaro Arias M.D. Signed By: 05/04/25 1211 DD/ 1208 TD/TT: Instrument And Control Service Person: Procedure Note Radiology, Radiologist, MD - 05/04/2025 [place] [address] Ultrasound Report Signed Patient: VIMAL PIZANO MMR#: [id number] : 2000Acct:[id number] Age/Sex: 25 / FADM Date: 05/04/25 Loc: [facility] 250-[address]: Collin Leach Ordering Physician: Collin Leach Date of Service: 05/04/25 Procedure(s): US OB growth Accession Number(s): [id number] cc: Collin Leach; LUIS SEE [place] [address] Patient Name: VIMAL PIZANO MRN: [id number] date: 2000 Sex: F Assigned Patient Location: [facility] Current Patient Location: [facility] Accession/Order Number: [id number] Exam Date: 05/04/2025 12:06 Report Date: 05/04/2025 [...] Jr., D.O. 05/04/2025 12:08 PM Dictation Location: [place] [address] Electronically authenticated by: [id number] Y Date: 2:08 Dictated By: Bulmaro Arias M.D. Signed By:05/04/25 1211 DD/ 1208 TD/TT: Instrument And Control Service Person: us Collin BISWAS [facility] Final Result documented in this encounter Visit Diagnoses Not on filedocumented in this encounter Care Teams Haunted History Tour Guide Relationship Specialty Start Date End Date Unallocated, Noms Provider, [address] [place] [address] PCP - General Family Medicine 08/03/24 documented as of this encounter
--- OUTSIDE RECORDS SUMMARY | 2025-05-09 13:54 | XMS_ITS | Encounter Summary ---
Author Organization [facility] Address [address] [place] [address] Care Team Providers Care Development System Efficiency Manager Name Role Phone Unallocated, Noms Provider Primary Care Provi krissy Encounter Details Date Type Department Care Team (Late Contact Info) Description 03/28/2025 Abstract ARJUN PANG [facility] [place] [address] Jose Rodriguez DO [address] [place], [facility]11 Social History Tobacco Use Types Packs/Day [...] EDT Routine NOMMay PANG [address] [place] [address] Jose Rodriguez DO [address] [facility] [address] [place]ué [place] [address] documented as of this encounter Visit Diagnoses Not on filedocumented in this encounter Care Teams Development System Efficiency Manager Relationship Specialty Start Date End Date Unallocated, Noms Provider, [place] [address] PCP - General Family Medicine 08/03/24 documented as of this encounter
--- OUTSIDE RECORDS SUMMARY | 2025-05-09 13:54 | XMS_ITS | Encounter Summary ---
Author Organization [facility] Address [address] [place] [address] Care Team Providers Care Metal Container Maker Name Role Phone Unallocated, Noms Provider Primary Care Provi krissy Encounter Details Date Type Department Care Team (Late st Contact Info) Description 05/04/2025 Telephone [facility] OBGYN [address] [place] [address] Jose Rodriguez DO [address] Josué [place], [facility]11 Social History Tobacco Use Types Packs/Day [...] PM EDT Routine [facility] [place] OBGYN [address] [facility] [place] [address] Jose Rodriguez DO [address] [facility] [address] [place] [place] [address] documented as of this encounter Visit Diagnoses Diagnosis Gestational diabetes mellitus (GDM), antepartum, gestational diabetes method of control unspecified ([facility]) Elevated glucose tolerance test Impaired glucose tolerance test documented in this encounter Care Teams Metal Container Maker Relationship Specialty Start Date End Date Unallocated, [place] [address] PCP - General Family Medicine 08/03/24 documented as of this encounter
--- OUTSIDE RECORDS SUMMARY | 2025-05-09 13:54 | XMS_ITS | Encounter Summary ---
Author Organization [facility] Address [address] [place] [address] Care Team Providers Care Hardwood Floor Finisher Name Role Phone Unallocated, Noms Provider Primary Care Provi krissy Encounter Details Date Type Department Care Team (Late Contact Info) Description 04/25/2025 Bamboo flowsheet ARJUN PANG [address] [facility] [place] [address] Rossana Ramos PA [address] [place], [facility]11 Social [...] PM EDT Routine [facility] Rafia PANG [address] [facility] [place] [address] Michael, Jose, [address] Josué [place] [address] documented as of this encounter Visit Diagnoses Not on filedocumented in this encounter Care Teams Hardwood Floor Finisher Relationship Specialty Start Date End Date Unallocated, Noms Provider, [place] [address] PCP - General Family Medicine 08/03/24 documented as of this encounter
--- OUTSIDE RECORDS SUMMARY | 2025-05-09 13:54 | XMS_ITS | Encounter Summary ---
Author Organization [facility] Address [address] [place] [address] Care Team Providers Care Stave Cutter Name Role Phone Vaishali Chaidez MD Primary Care Provider Bipin cheng Unallocated, Noms Provider Primary Care Provi krissy Encounter Details Date Type Department Care Team (Late st Contact Info) Description 06/29/2024 Clinisync Result Encounter NOMS External Department Unsolicited Mackenzie Rodriguez, DO [address] [place], [place] [id number] Social History Tobacco Use Types Packs/Day Years [...] Routine [facility]ia OBGYN [address] [place] [phone] Mackenzie Rodriguez DO [address] [place] [address] documented as of this encounter Procedures Procedure Name Priority Date/Time Associated Diagnosis Comments US OB TRANSVAGINAL 06/29/2024 9: 11 AM EDT documented in this encounter Results * US OB TRANSVAGINAL (06/29/2024 9:11 AM EDT) Anatomical Region Laterality Modality Other 06/29/2024 9:11 AM EDT Narrative 06/29/2024 9:14 [place] [address] Ultrasound Report Signed Patient: Vimal Pizano MR#: [id number] : 2000 Acct:[id number] Age/Sex: 24 / F ADM Date: 06/29/24 Loc: [facility] Attending Dr: Mackenzie Rodriguez D.O. Ordering Physician: Mackenzie Rodriguez D.O. Date of Service: 06/29/24 Procedure(s): US OB transvaginal Accession Number(s): [id number] cc: Mackenzie Rodriguez D.O.; VAISHALI CHAIDEZ [place] [address] Patient Name: VIMAL PIZANO MRN: [id number] date: 2000 Sex: F Assigned Patient Location: [facility] Current Patient Location: [facility] Accession/Order Number: [id number] Exam Date: 06/29/2024 08:37 Report Date: 06/29/2024 [...] M.D. Signed By: 06/29/24913 DD/ 0 TD/TT: Manager Telecom: Procedure Note Radiology, Radiologist, MD - 06/29/2024 [place] [address] Ultrasound Report Signed Patient: Vimal Pizano MMR#: [id number] : 2000Acct:[id number] Age/Sex: 24 / FADM Date: 06/29/24 Loc: [facility] Attending Dr: Mackenzie Rodriguez D.O. Ordering Physician: Mackenzie Rodriguez D.O. Date of Service: 06/29/24 Procedure(s): US OB transvaginal Accession Number(s): [id number] cc: Mackenzie Rodriguez D.O.; VAISHALI CHAIDEZ [place] [address] Patient Name: VIMAL PIZANO MRN: [id number] date: 2000 Sex: F Assigned Patient Location: [facility] Current Patient Location: [facility] Accession/Order Number: [id number] Exam Date: 06/29/2024 08:37 Report Date: 06/29/2024 [...] Herrera M.D. Signed By:06/29/24913 DD/ 0 TD/TT: Manager Telecom: us Mackenzie Michael DO [facility] Final Result documented in this encounter Visit Diagnoses Not on filedocumented in this encounter Care Teams Stave Cutter Relationship Specialty Start Date End Date Vaishali Chaidez MD [address] [place] [address] PCP - General Family Medicine 02/04/23 08/02/24 Unallocated, Noms Provider, [address] [place] [address] PCP - General Family Medicine 08/03/24 documented as of this encounter
--- OUTSIDE RECORDS SUMMARY | 2025-05-09 13:54 | XMS_ITS | Encounter Summary ---
Author Organization [facility] Address [address] [place] [address] Care Team Providers Care Meteorological Observer Name Role Phone Unallocated, Noms Provider Primary Care Provi krissy Encounter Details Date Type Department Care Team (Late st Contact Info) Description 05/04/2025 Clinisync Result Encounter [facility]S External Department Unsolicited Rossana Ramos PA [address] [place], [facility]11 Social History Tobacco Use Types Packs/Day [...] PM EDT Routine [facility] [address] [facility] [place] [phone] Jose Rodriguez DO [address] [place], [facility]11 documented as of this encounter Procedures [...] BISWAS CLINISYPROSPER Final Result Performing Organization Address [facility] Co de Phone Number CLINIS[facility]NC TB * [facility] AST (05/04/2025 7:23 AM EDT) ASPARTATE AMINO TRANSFERASE 23 15 - 37 U/L TBH 05/04/2025 7:23 AM EDT 05/04/2025 7:30 AM EDT Narrative CLINISYNC - 05/04/2025 8:21 AM EDT us Rossana ROSENBERGISYPROSPER Final Result Performing Organization Address [facility] de Phone Number CLINISYNC TB * ALL URIC ACID (05/04/2025 7:23 AM EDT) URIC ACID 3.7 2.6 - 6.0 mg/dL TB 05/04/2025 7:23 AM EDT 05/04/2025 7:30 AM EDT Narrative CLINISYNC - 05/04/2025 8:21 AM EDT us Rossana ROSENBERGISYPROSPER Final Result Performing Organization Address [facility] Co de Phone Number CLINISYNC TB * (ABNORMAL) TBH CREATININE (05/04/2025 7:23 AM EDT) CREATININE 0.37(L) 0.55 - 1.02 mg/dL TBH TBH EGFR-AF SURINAMESE >60 >=60 mL/min/1.7 3m 2 TBH TBH EGFR-NON AF SURINAMESE >60 >=60 mL/min/1.7 3m 2 TBH 05/04/2025 7:23 AM EDT 05/04/2025 7:30 AM EDT Narrative CLINISYNC - 05/04/2025 8:21 AM EDT us Rossana BISWAS CLINISYPROSPER Final Result Performing Organization Address [facility] de Phone Number CLINBARRETTNC [facility] * ALL BUN (05/04/2025 7:23 AM EDT) BLOOD UREA NITROGEN 8.0 7.0 - 18.0 mg/dL TBH 05/04/2025 7:23 AM EDT 05/04/2025 7:30 AM EDT Narrative CLINISYNC - 05/04/2025 8:21 AM EDT us Rossana ORR Final Result Performing Organization Address [facility] de Phone Number [facility] * [facility] APTT (05/04/2025 7:23 AM EDT) PARTIAL THROMBOPLASTIN TIME 25.7 22.3 - 36.2 sec TB 05/04/2025 7:23 AM EDT 05/04/2025 7:30 AM EDT Narrative CLINISYNC - 05/04/2025 8:04 AM EDT Rossana ORR Final Result Performing Organization Address [facility] de Phone Number CLINALICE [facility] * SRMCOH PROTHROMBIN TIME INR W/O COUM [...] EDT us Rossana BISWAS CLINALICE Final Result [facility] documented in this encounter Visit Diagnoses Not on filedocumented in this encounter Care Teams Meteorological Observer Relationship Specialty Start Date End Date Unallocated, Noms Provider, [address] [place] [address] PCP - General Family Medicine 08/03/24 documented as of this encounter
--- OUTSIDE RECORDS SUMMARY | 2025-05-09 13:54 | XMS_ITS | Encounter Summary ---
Author Organization [facility] Address [address] [place] [address] Care Team Providers Care Water And Fire Technician Name Role Phone Unallocated, Noms Provider Primary Care Provi krissy Encounter Details Date Type Department Care Team (Late st Contact Info) Description 08/10/2024 Abstract ARJUN PANG [facility] [place] [address] Jose Rodriguez DO [address] [place], [place] [address] Social History Tobacco Use Types Packs/Day Years [...] 05/14/2025 2:40 PM EDT Routine ARJUN PANG [facility] [place] [address] Jose Rodriguez DO [address] [place], [facility]11 documented as of this encounter Visit Diagnoses Not on filedocumented in this encounter Care Teams Water And Fire Technician Relationship Specialty Start Date End Date Unallocated, Noms Provider, [address] [place] [address] PCP - General Family Medicine 08/03/24 documented as of this encounter
--- OUTSIDE RECORDS SUMMARY | 2025-05-09 13:54 | XMS_ITS | Encounter Summary ---
Author Organization [facility] Address [address] [place] [address] Care Team Providers Care Junior Network Administrator Name Role Phone Unallocated, Noms Provider Primary Care Provi krissy Encounter Details Date Type Department Care Team (Late st Contact Info) Description 05/06/2025 Clinisync Result Encounter [facility] External Department Unsolicited Rossana Ramos PA [address] [place], [facility]11 Social History Tobacco Use Types Packs/Day [...] PM EDT Routine [facility] [address] [facility] [phone] Jose Rodriguez DO [address] [facility] [address] Josué [place], [facility]11 documented as of this encounter Procedures Procedure [...] EDT us Rossana BISWAS CLINISYNC Final Result [facility] documented in this encounter Visit Diagnoses Not on filedocumented in this encounter Care Teams Junior Network Administrator Relationship Specialty Start Date End Date Unallocated, Noms Provider, [address] [place] [address] PCP - General Family Medicine 08/03/24 documented as of this encounter
--- OUTSIDE RECORDS SUMMARY | 2025-05-09 13:54 | XMS_ITS | Encounter Summary ---
Author Organization [facility] Address [address] [place] [address] Care Team Providers Care Lime Kiln Tender Name Role Phone Unallocated, Noms Provider Primary Care Provi krissy Encounter Details Date Type Department Care Team (Late st Contact Info) Description 08/10/2024 Clinisync Result Encounter NOMS External Department Unsolicited Mackenzie Rodriguez DO [address] [place], [facility]11 Social History Tobacco Use Types [...] Routine [facility] Rafia OBGYN [address] [place] [phone] Mackenzie Rodriguez DO [address] [place] [address] documented as of this encounter Procedures Procedure Name Priority Date/Time Associated Diagnosis Comments US OB TRANSVAGINAL 08/10/2024 8: 44 AM EST documented in this encounter Results * US OB TRANSVAGINAL (08/10/2024 8:44 AM EST) Anatomical Region Laterality Modality Other 08/10/2024 8:44 AM EST Narrative 08/10/2024 8:47 [place] [address] Ultrasound Report Signed Patient: AMBER PIZANO MR#: [id number] : 2000 Acct:[id number] Age/Sex: 24 / F ADM Date: 08/10/24 Loc: SURGOUT Attending Dr: Mackenzie Rodriguez D.O. Ordering Physician: Mackenzie Rodriguez D.O. Date of Service: 08/10/24 Procedure(s): US OB transvaginal Accession Number(s): [id number] cc: LUIS SEE ; Mackenzie Rodriguez D.O. The [place] [id number] Patient Name: AMBER PIZANO MRN: [id number] date: 2000 Sex: F Assigned Patient Location: [facility] Current Patient Location: [facility] Accession/Order Number: [id number] Exam Date: 08/10/2024 08:10 Report Date: 08/10/2024 [...] M.D. Signed By: 08/10/24846 DD/ 3 TD/TT: Aerosol Supervisor: Procedure Note Radiology, Radiologist, MD - 08/10/2024 [place] [address] Ultrasound Report Signed Patient: AMBER PIZANO MMR#: [id number] : 2000Acct:[id number] Age/Sex: 24 / FADM Date: 08/10/24 Loc: SURGOUT Attending Dr: Mackenzie Rodriguez D.O. Ordering Physician: Mackenzie Rodriguez D.O. Date of Service: 08/10/24 Procedure(s): US OB transvaginal Accession Number(s): [id number] cc: LUIS SEE ; Mackenzie Rodriguez D.O. The [place] [id number] Patient Name: AMBER PIZANO MRN: [id number] date: 2000 Sex: F Assigned Patient Location: [facility] Current Patient Location: [facility] Accession/Order Number: [id number] Exam Date: 08/10/2024 08:10 Report Date: 08/10/2024 [...] Lavon Herrera M.D. Signed By:08/10/2447 DD/ TD/TT: Aerosol Supervisor: us Mackenzie Michael DO [facility] Final Result documented in this encounter Visit Diagnoses Not on filedocumented in this encounter Care Teams Lime Kiln Tender Relationship Specialty Start Date End Date Unallocated, Noms Provider, [address] [place] [address] PCP - General Family Medicine 08/03/24 documented as of this encounter
--- OUTSIDE RECORDS SUMMARY | 2025-05-09 13:54 | XMS_ITS | Encounter Summary ---
Author Organization [facility] Address [address] [place] [address] Care Team Providers Care Tubing Oiler Name Role Phone Unallocated, Noms Provider Primary Care Provi krissy Encounter Details Date Type Department Care Team (Late st Contact Info) Description 05/04/2025 Clinisync Result Encounter [facility] External Department Unsolicited Collin Leach PA [address] [place], [facility]11 Social History Tobacco Use Types Packs/Day [...] PM EDT Routine [facility] [address] [place] [id number] Jose Rodriguez DO [address] [place], [facility]11 documented as of this encounter Procedures Procedure Name Priority Date/Time Associated Diagnosis Comments US OB BPP W NON-STRESS 05/04/2025 12:09 PM EDT documented in this encounter Results * US OB BPP W NON-STRESS (05/04/2025 12:09 PM EDT) Anatomical Region Laterality Modality Other 05/04/2025 12:0 9 PM EDT Narrative 05/04/2025 12:12 [place] [address] Ultrasound Report Signed Patient: VIMAL PIZANO MR#: [id number] : 2000 Acct:[id number] Age/Sex: 25 / F ADM Date: 05/04/25 Loc: [facility] 250-[address]: Collin Leach Ordering Physician: Collin Leach Date of Service: 05/04/25 Procedure(s): US OB BPP w non-stress Accession Number(s): [id number] cc: Collin Leach; LUIS SEE [address] [address] Patient Name: VIMAL PIZANO MRN: [id number] date: 2000 Sex: F Assigned Patient Location: [facility] Current Patient Location: [facility] Accession/Order Number: [id number] Exam Date: 05/04/2025 12:08 Report Date: 05/04/2025 12:09 At the request of: COLLIN LEACH Procedure: US OB BPP w non-stress Biophysical profile. Reason for exam: Gestational diabetes COMPARISON: None TECHNIQUE: Transabdominal imaging of the gravid uterus was obtained. FINDINGS: The manager concrete reports a BPP of 8 out of 8. DANYA is normal at 12.4 cm. heart rate 150 bpm. US/US OB BPP w non-stress IMPRESSION: BPP 8 out of 8. Impression dictated by: Bulmaro Arias Jr., D.O. 05/04/2025 12:09 PM Dictation Location: RADIO-PC-18 Electronically authenticated by: [id number] Y Date: 05/04/2025 12:09 Dictated By: Bulmaro Arias M.D. Signed By: 05/04/25 1212 DD/ 1209 TD/TT: Termite Helper: Procedure Note Radiology, Radiologist, - 05/04/2025 [place] [address] Ultrasound Report Signed Patient: VIMAL PIZANO MMR#: [id number] : 2000Acct:[id number] Age/Sex: 25 / FADM Date: 05/04/25 Loc: [place] [address]: Collin Leach Ordering Physician: Collin Leach Date of Service: 05/04/25 Procedure(s): US OB BPP w non-stress Accession Number(s): [id number] cc: Collin Leach; LU[place] SEE [facility] [place] [id number] Patient Name: VIMAL PIZANO MRN: [id number] date: 2000 Sex: F Assigned Patient Location: [facility] Current Patient Location: [facility] Accession/Order Number: [id number] Exam Date: 05/04/2025 12:08 Report Date: 05/04/2025 12:09 At the request of: COLLIN LEACH Procedure: US OB BPP w non-stress Biophysical profile. Reason for exam: Gestational diabetes COMPARISON: None TECHNIQUE: Transabdominal imaging of the gravid uterus was obtained. FINDINGS: The manager concrete reports a BPP of 8 out of 8. DANYA is normal at12.4 cm. heart rate 150 bpm. US/US OB BPP w non-stress IMPRESSION: BPP 8 out of 8. Impression dictated by: Bulmaro Arias Jr., D.O. 05/04/2025 12:09 PM Dictation Location: Social Pulse-18 Electronically authenticated by: [id number] Y Date: 2:09 Dictated By: Bulmaro Arias M.D. Signed By:05/04/25 1212 DD/ 1209 TD/TT: Termite Helper: us Collin [facility] Final Result documented in this encounter Visit Diagnoses Not on filedocumented in this encounter Care Teams Tubing Oiler Relationship Specialty Start Date End Date Unallocated, Noms Provider, [address] [place] [address] PCP - General Family Medicine 08/03/24 documented as of this encounter
--- OUTSIDE RECORDS SUMMARY | 2025-05-09 13:54 | XMS_ITS | Encounter Summary ---
Author Organization [facility] Address [address] [place] [address] Care Team Providers Care Bradder Name Role Phone Unallocated, Noms Provider Primary Care Provi krissy Encounter Details Date Type Department Care Team (Late st Contact Info) Description 08/10/2024 Abstract ARJUN PANG [facility] [place] [address] Jose Rodriguez DO [address] [place], [place] [address] Social History Tobacco Use Types Packs/Day Years [...] 05/14/2025 2:40 PM EDT Routine ARJUN PANG [facility] [place] [address] Jose Rodriguez DO [address] [place], [facility]11 documented as of this encounter Visit Diagnoses Not on filedocumented in this encounter Care Teams Bradder Relationship Specialty Start Date End Date Unallocated, Noms Provider, [address] [place] [address] PCP - General Family Medicine 08/03/24 documented as of this encounter
--- OUTSIDE RECORDS SUMMARY | 2025-05-09 13:54 | XMS_ITS | Encounter Summary ---
Author Organization [facility] Address [address] [place] [address] Care Team Providers Care Design Technician Name Role Phone Unallocated, Noms Provider Primary Care Provi krissy Encounter Details Date Type Department Care Team (Late st Contact Info) Description 03/11/2025 Results Follow-Up [facility] [place] [facility] [address] [place] [address] Glenna Butler LPN [address] [place] [address] US OB ANATOMY Social History Tobacco Use Types Packs/Day Years [...] PM EDT Routine [facility] [place] [facility] [address] [facility] [place] [phone] Jose Rodriguez DO [address] [place] [address] documented as of this encounter Visit Diagnoses Not on filedocumented in this encounter Care Teams Design Technician Relationship Specialty Start Date End Date Unallocated, Noms Gilda, [address] [place] [address] PCP - General Family Medicine 08/03/24 documented as of this encounter
--- OUTSIDE RECORDS SUMMARY | 2025-05-09 13:54 | XMS_ITS | Encounter Summary ---
Author Organization [facility] Address [address] [place] [address] Care Team Providers Care Ad Copy Writer Name Role Phone Vaishali Zapata MD Primary Care Provider Bipin cheng Unallocated, Noms Provider Primary Care Provi krissy Encounter Details Date Type Department Care Team (Late st Contact Info) Description 06/29/2024 Abstract ARJUN PANG [address] [place] [address] Jose Rodriguez DO [address] [place], [place] [address] Social History Tobacco Use Types Packs/Day Years [...] 2:40 PM EDT Routine ARJUN PANG [address] [place] [address] Jose Rodriguez DO [address] [place], [facility]11 documented as of this encounter Visit Diagnoses Not on filedocumented in this encounter Care Teams Ad Copy Writer Relationship Specialty Start Date End Date Vaishali Zapata MD [address] [place] [address] PCP - General Family Medicine 02/04/23 08/02/24 Unallocated, Noms Provider, [address] [place] [address] PCP - General Family Medicine 08/03/24 documented as of this encounter
--- OUTSIDE RECORDS SUMMARY | 2025-05-09 13:54 | XMS_ITS | Encounter Summary ---
Author Organization [facility] Address [address] [place] [address] Care Team Providers Care Watershed Tender Name Role Phone Vaishali Zapata MD Primary Care Provider Bipin cheng Unallocated, Noms Provider Primary Care Provi krissy Encounter Details Date Type Department Care Team (Late st Contact Info) Description 08/02/2024 Abstract ARJUN PANG [address] [place] [address] Jose Rodriguez DO [address] [place], [place] [address] Social History Tobacco Use Types Packs/Day Years [...] 2:40 PM EDT Routine ARJUN PANG [address] [place] [address] Jose Rodriguez DO [address] [place], [facility]11 documented as of this encounter Visit Diagnoses Not on filedocumented in this encounter Care Teams Watershed Tender Relationship Specialty Start Date End Date Vaishali Zapaat MD [address] [place] [address] PCP - General Family Medicine 02/04/23 08/02/24 Unallocated, Noms Provider, [address] [place] [address] PCP - General Family Medicine 08/03/24 documented as of this encounter
--- OUTSIDE RECORDS SUMMARY | 2025-05-09 13:54 | XMS_ITS | Encounter Summary ---
Author Organization [facility] Address [address] [place] [address] Care Team Providers Care Prison Librarian Name Role Phone Unallocated, Noms Provider Primary Care Provi krissy Encounter Details Date Type Department Care Team (Late st Contact Info) Description 05/07/2025 Results Follow-Up [facility]UN [place] [facility] [address] [place] [address] Glenna Butler LPN [address] [place] [address] ALL CBC WITH AUTO DIFF, SRMCOH PROTHROMBIN TIME INR W/O COUM, [facility] APTT, Additional followed-up results: 6 Social History Tobacco Use Types Packs/Day Years [...] Description 05/14/2025 2:40 PM EDT Routine [facility] [place] [facility] [address] [place] [address] Jose Rodriguez DO [address] [facility] [address] [place] [place] [address] documented as of this encounter Visit Diagnoses Not on filedocumented in this encounter Care Teams Prison Librarian Relationship Specialty Start Date End Date Unallocated, Arjun Vo MD [address] [place] [address] PCP - General Family Medicine 08/03/24 documented as of this encounter
--- OUTSIDE RECORDS SUMMARY | 2025-05-09 13:54 | XMS_ITS | Encounter Summary ---
Author Organization [facility] Address [address] [place] [address] Care Team Providers Care Pile Driving Technician Name Role Phone Unallocated, Noms Provider Primary Care Provi krissy Encounter Details Date Type Department Care Team (Late Contact Info) Description 05/08/2025 Abstract ARJUN PANG [facility] [place] [address] Jose Rodriguez DO [address] [place], [facility]11 Social History Tobacco Use Types [...] EDT Routine NOMMay PANG [address] [place] [address] Jose Rodriguez DO [address] [facility] [address] [place] [place] [address] documented as of this encounter Visit Diagnoses Not on filedocumented in this encounter Care Teams Pile Driving Technician Relationship Specialty Start Date End Date Unallocated, Noms Provider, [place] [address] PCP - General Family Medicine 08/03/24 documented as of this encounter
--- OUTSIDE RECORDS SUMMARY | 2025-05-09 13:54 | XMS_ITS | Encounter Summary ---
Author Organization [facility] Address [address] [place] [address] Care Team Providers Care Stoneworking Belt Sander Name Role Phone Vaishali Zapata MD Primary Care Provider Bipin cheng Unallocated, Noms Provider Primary Care Provi krissy Encounter Details Date Type Department Care Team (Late st Contact Info) Description 06/28/2024 Abstract ARJUN PANG [address] [place] [address] Jose Rodriguez DO [address] [place], [place] [address] Social History Tobacco Use Types Packs/Day Years [...] 2:40 PM EDT Routine ARJUN PANG [address] [place] [address] Jose Rodriguez DO [address] [place], [facility]11 documented as of this encounter Visit Diagnoses Not on filedocumented in this encounter Care Teams Stoneworking Belt Sander Relationship Specialty Start Date End Date Vaishali Zapata MD [address] [place] [address] PCP - General Family Medicine 02/04/23 08/02/24 Unallocated, Noms Provider, [address] [place] [address] PCP - General Family Medicine 08/03/24 documented as of this encounter
--- OUTSIDE RECORDS SUMMARY | 2025-05-09 13:54 | XMS_ITS | Encounter Summary ---
Author Organization [facility] Address [address] [place] [address] Care Team Providers Care Supervisor Uranium Processing Name Role Phone Unallocated, Noms Provider Primary Care Provi krissy Encounter Details Date Type Department Care Team (Late st Contact Info) Description 08/10/2024 Abstract ARJUN PANG [facility] [place] [address] Jose Rodriguez DO [address] [place], [place] [address] Social History Tobacco Use Types Packs/Day Years [...] 05/14/2025 2:40 PM EDT Routine ARJUN PANG [facility] [place] [address] Jose Rodriguez DO [address] [place], [facility] documented as of this encounter Visit Diagnoses Not on filedocumented in this encounter Care Teams Supervisor Uranium Processing Relationship Specialty Start Date End Date Unallocated, Noms Provider, [address] [place] [address] PCP - General Family Medicine 08/03/24 documented as of this encounter
--- OUTSIDE RECORDS SUMMARY | 2025-05-09 13:55 | XMS_ITS | Clinical Summary ---
Author Organization [facility] Address [address] [place] [address] Care Team Providers Care Wireless Engineer Name Role Phone Unallocated, Noms Provider [...] 26 Active labetalol (Normodyne) 300 MG tabletIndication s:-alexandra mariluz hypertension in third trimester (HHS-HCC) Take [...] antepartum, gestational diabetes method of control unspecified ([facility]),Elevat ed glucose tolerance test 1 kit Daily [...] Team Description 05/08/2025 [place] [phone] Mackenzie Rodriguez DO 05/07/2025 Results [place] [address] Glenna Butler, MARILU ALL CBC WITH AUTO DIFF, [facility]MCOH PROTHROMBIN TIME INR W/O COUM, [facility] APTT, Additional followed-up results: 6 05/06/2025 Clinisync Result Encounter [facility]OMS External Department Unsolicited Rossana Leach PA 05/04/2025 Clinisync Result Encounter NOMS External Department Unsolicited Rossana Leach PA 05/04/2025 Clinisync Result Encounter NOMS External Department Unsolicited Rossana Leach PA 05/04/2025 Telephone [facility] [address] [place] [address] Mackenzie Rodriguez DO 05/04/2025 Clinisync Result Encounter NOMS External Department Unsolicited Rossana Leach PA 04/30/2025 10:50 AM EDT Routine [facility] [address] [place] [address] Rossana Leach PA BP check; -induced hypertension in third trimester ([facility]); Gestational diabetes mellitus (GDM) in third trimester, gestational diabetes method of control unspecified ([facility]) 04/30/2025 Bamboo flowsheet [facility] [address] [place] [address] Rossana Leach PA 04/29/2025 Telephone [facility] [address] [place] [address] Kavitha Almanza MA 04/27/2025 Clinisync Result Encounter NOMS External Department Unsolicited Rossana Leach PA 04/25/2025 2:50 PM EDT Office Visit [facility] [address] [place] [address] Rossana Leach PA Second trimester ([facility]); 27 weeks gestation of ([facility]); induced hypertension, antepartum ([facility]) 04/25/2025 Bamboo flowsheet [facility] [address] [place] [address] Rossana Leach PA 04/11/2025 3:30 PM EDT Routine [facility] [address] [place] [address] Rossana Leach PA Second trimester ([facility]); 25 weeks gestation of ([facility]); Diabetes mellitus screening; Elevated BP without diagnosis of hypertension 04/11/2025 Bamboo flowsheet [facility] [address] [place] [address] Rossana Leach PA 03/28/2025 Abstract [facility] [address] [place] [address] Mackenzie Rodriguez, 03/25/2025 Clinisync Result Encounter NOMS External Department Unsolicited Mackenzie Rodriguez, DO 03/14/2025 10:50 AM EDT Routine [facility] [address] [place] [address] Mackenzie Rodriguez, DO Second trimester ([facility]); 21 weeks gestation of ([facility]) 03/14/2025 Bamboo flowsheet [facility] [address] [place] [address] Mackenzie Rodriguez, 03/11/2025 Results Follow-Up [facility] [address] [place] [address] Glenna Butler LPN OB ANATOMY 03/11/2025 Telephone [facility] [address] [place] [address] Glenna Butler LPN 03/08/2025 Clinisync Result Encounter NOMS External Department Unsolicited Mackenzie Rodriguez, 03/08/2025 Clinisync Result Encounter NOMS External Department Unsolicited Mackenzie Rodriguez, 03/06/2025 Orders Only [facility] [address] [place] [address] Kavitha Almanza MA 02/20/2025 3:40 PM EDT Routine [facility] [address] [place] [address] Rossana Leach PA Screening, , for anatomic survey ([facility]); Well woman exam with routine gynecological exam; STD exposure; Second trimester ([facility]); 18 weeks gestation of ([facility]); Urinary frequency 02/20/2025 Clinisync Result Encounter NOMS External Department Unsolicited Rossana Leach PA 02/20/2025 External Result Encounter NOMS External Department Unsolicited Rossana Leach PA 02/20/2025 Bamboo flowsheet [facility] [address] [place] [address] Rossana Leach PA from Last 3 Months [...] 05/14/2025 2:40 PM EDT Routine [facility] [address] [place] [address] Mackenzie Rodriguez [address] [place] [id number] Health Maintenance Due Date Last Done Comments [...] Routine 04/25/2025 3:12 PM EDT Second trimester ([facility]) POCT URINALYSIS DIPSTICK Routine 04/11/2025 3:44 PM EDT Second trimester ([facility]) US OB INCOMPLETE ANATOMY 03/25/2025 8:25 AM EDT POCT URINALYSIS DIPSTICK Routine 03/14/2025 11:39 AM EDT Second trimester ([facility]) US OB CERVICAL LENGTH 03/08/2025 8:36 PM EDT US OB ANATOMY 03/08/2025 8:36 PM EDT RECURRENT VAGINITIS (HTRX) Routine 02/20/2025 4:33 PM EDT URINARY TRACT INFECTION (HTRX) Routine 02/20/2025 4:30 PM EDT POCT URINALYSIS DIPSTICK Routine 02/20/2025 4:18 PM EDT 18 weeks gestation of ([facility]) IGP,APTIMA HPV,AGE GDLN Routine 02/20/2025 [...] - 05/06/2025 5:50 PM EDT us Rossana ORR Final Result [facility] * US OB BPP W NON-STRESS (05/04/2025 12:09 PM EDT) Anatomical Region Laterality Modality Other 05/04/2025 12:0 9 PM EDT Narrative 05/04/2025 12:12 [place] [address] Ultrasound Report Signed Patient: VIMAL FUNES MR#: [id number] : 2000 Acct:[id number] Age/Sex: 25 / F ADM Date: 05/04/25 Loc: [facility] 250-[address]: Rossana Leach Ordering Physician: Rossana Leach Date of Service: 05/04/25 Procedure(s): US OB BPP w non-stress Accession Number(s): [id number] cc: Rossana Leach; LUIS SEE [place] [address] Patient Name: VIMAL FUNES MRN: [id number] date: 2000 Sex: F Assigned Patient Location: [facility] Current Patient Location: [facility] Accession/Order Number: [id number] Exam Date: 05/04/2025 12:08 Report Date: 05/04/2025 12:09 At the request of: ROSSANA LEACH Procedure: US OB BPP w non-stress Biophysical profile. Reason for exam: Gestational diabetes COMPARISON: None TECHNIQUE: Transabdominal imaging of the gravid uterus was obtained. FINDINGS: The chief wellness officer reports a BPP of 8 out of 8. DANYA is normal at 12.4 cm. heart rate 150 bpm. US/US OB BPP w non-stress IMPRESSION: BPP 8 out of 8. Impression dictated by: Bulmaro Arias Jr., D.O. 05/04/2025 12:09 PM Dictation Location: [place] [address] Electronically authenticated by: [id number] Y Date: 05/04/2025 12:09 Dictated By: Bulmaro Arias M.D. Signed By: 05/04/251211 DD/ 08 TD/TT: Ethnographer: Procedure Note Radiology, Radiologist, - 05/04/2025 [place] [address] Ultrasound Report Signed Patient: VIMAL FUNES MMR#: [id number] : 2000Acct:[id number] Age/Sex: 25 / FADM Date: 05/04/25 Loc: [facility] 250-[address]: Rossana Leach Ordering Physician: Rossana Leach Date of Service: 05/04/25 Procedure(s): US OB BPP w non-stress Accession Number(s): [id number] cc: Rossana Leach; LUIS SEE [place] [id number] Patient Name: VIMAL FUNES MRN: [id number] date: 2000 Sex: F Assigned Patient Location: [facility] Current Patient Location: [facility] Accession/Order Number: [id number] Exam Date: 05/04/2025 12:08 Report Date: 05/04/2025 12:09 At the request of: ROSSANA LEACH Procedure: US OB BPP w non-stress Biophysical profile. Reason for exam: Gestational diabetes COMPARISON: None TECHNIQUE: Transabdominal imaging of the gravid uterus was obtained. FINDINGS: The chief wellness officer reports a BPP of 8 out of 8. DANYA is normal at12.4 cm. heart rate 150 bpm. US/US OB BPP w non-stress IMPRESSION: BPP 8 out of 8. Impression dictated by: Bulmaro Arias Jr., D.O. 05/04/2025 12:09 PM Dictation Location: [place] [address] Electronically authenticated by: [id number] Y Date: 2:09 Dictated By: Bulmaro Arias M.D. Signed By:05/04/25 121 DD/ 08 TD/TT: Ethnographer: us Rossana BISWAS CLINISYNC IMAGING Final Result * US OB GROWTH (05/04/2025 12:08 PM EDT) Anatomical Region Laterality Modality Other 05/04/2025 12:0 8 PM EDT Narrative 05/04/2025 12:11 [place] [address] Ultrasound Report Signed Patient: VIMAL FUNES MR#: [id number] : 2000 Acct:[id number] Age/Sex: 25 / F ADM Date: 05/04/25 Loc: [facility] [address]: Rossana Leach Ordering Physician: Rossana Leach Date of Service: 05/04/25 Procedure(s): US OB growth Accession Number(s): [id number] cc: Rossana Leach; LUIS SEE [place] [phone] Patient Name: VIMAL FUNES MRN: [id number] date: 2000 Sex: F Assigned Patient Location: [facility] Current Patient Location: [facility] Accession/Order Number: [id number] Exam Date: 05/04/2025 12:06 Report Date: 05/04/2025 [...] Jr., D.O. 05/04/2025 12:08 PM Dictation Location: [employer] Electronically authenticated by: [id number] Y Date: 05/04/2025 12:08 Dictated By: Bulmaro Arias M.D. Signed By: 05/04/25 1211 DD/ 1208 TD/TT: Ethnographer: Procedure Note Radiology, Radiologist, - 05/04/2025 [place] [address] Ultrasound Report Signed Patient: VIMAL FUNES MMR#: [id number] : 2000Acct:[id number] Age/Sex: 25 / FADM Date: 05/04/25 Loc: [facility] 250-[address]: Rossana Leach Ordering Physician: Rossana Leach Date of Service: 05/04/25 Procedure(s): US OB growth Accession Number(s): [id number] cc: Rossana Leach; LUIS SEE [place] [id number] Patient Name: VIMAL FUNES MRN: [id number] date: 2000 Sex: F Assigned Patient Location: [facility] Current Patient Location: [facility] Accession/Order Number: [id number] Exam Date: 05/04/2025 12:06 Report Date: 05/04/2025 [...] Jr., D.O. 05/04/2025 12:08 PM Dictation Location: [employer] Electronically authenticated by: [id number] Y Date: :08 Dictated By: Bulmaro Arias M.D. Signed By:05/04/25 1211 DD/ 1208 TD/TT: Ethnographer: Rossana ORR IMAGING Final Result * (ABNORMAL) TBH CREATININE (05/04/2025 7:23 AM EDT) CREATININE 0.37(L) 0.55 - 1.02 mg/dL TBH TBH EGFR-AF IRAQI >60 >=60 mL/min/1.7 3m 2 TBH TBH EGFR-NON AF IRAQI >60 >=60 mL/min/1.7 3m 2 TBH 05/04/2025 7:23 AM EDT 05/04/2025 7:30 AM EDT Narrative CLINISYNC - 05/04/2025 8:21 AM EDT Rossana ROSENBERGISYNC Final Result Performing Organization Address City/[facility]/ZIP Co de Phone Number [facility] * (ABNORMAL) GLUCOSE TOLERANCE 3 HOUR (05/04/2025 [...] BISWAS LAB BLOOD ORDERABLES Final Resul t [facility] * [facility] PROTHROMBIN TIME INR W/O COUM (05/04/2025 7:23 AM EDT) PROTHROMBIN TIME 10.1 9.0 - 11.6 sec TB TB INR 0.95 TBH Comment: DESIRED INR: 2.0-3.0 CONDITIONS NOT LISTED BELOW 2.5-3.5 FOR PROSTHETIC HEART VALVE REPLACEMENT 2.5-3.5 RECURRENT THROMBOSIS 05/04/2025 7:23 AM EDT 05/04/2025 7:30 AM EDT Narrative CLINISYNC - 05/04/2025 8:04 AM EDT us Rossana ORR Final Result Performing Organization Address [facility]/ZIP Co de Phone Number [facility] * [facility] AST (05/04/2025 7:23 AM EDT) ASPARTATE AMINO TRANSFERASE 23 15 - 37 U/L TB 05/04/2025 7:23 AM EDT 05/04/2025 7:30 AM EDT Narrative CLINISYNC - 05/04/2025 8:21 AM EDT us Rossana ROSENBERGISYPROSPER Final Result Performing Organization Address [facility] de Phone Number [facility] * [facility] APTT (05/04/2025 7:23 AM EDT) PARTIAL THROMBOPLASTIN TIME 25.7 22.3 - 36.2 sec TB 05/04/2025 7:23 AM EDT 05/04/2025 7:30 AM EDT Narrative CLINISYNC - 05/04/2025 8:04 AM EDT Rossana ORR Final Result Performing Organization Address [facility] de Phone Number [facility] * ALL URIC ACID (05/04/2025 7:23 AM EDT) URIC ACID 3.7 2.6 - 6.0 mg/dL TB 05/04/2025 7:23 AM EDT 05/04/2025 7:30 AM EDT Narrative CLINISYNC - 05/04/2025 8:21 AM EDT Rossana BISWAS CLINISYPROSPER Final Result [facility] * ALL LDH (05/04/2025 7:23 AM EDT) LACTATE DEHYDROGENASE 163 81 - 234 U/L TBH 05/04/2025 7:23 AM EDT 05/04/2025 7:30 AM EDT Narrative CLINISYNC - 05/04/2025 8:21 AM EDT Rossana BISWAS CLINISYNC Final Result Performing Organization Address [facility] de Phone Number [facility]NC [facility] * (ABNORMAL) ALL CBC WITH AUTO DIFF (05/04/2025 7:23 AM EDT) Only the most recent of2 resultswithin the time period is included. Pathologist [facility] TBH WBC 12.5(H) 4.0 - 11.0 10 3/uL TBH TBH RBC 4.29 4.20 - 5.40 10 6/uL TBH TBH HGB 13.7 12.0 - 16.0 g/dL TB TB HCT 39.5 36.0 - 48.0 % TBH TBH MCV 92.1 81.0 - 99.0 fL TBH TBH MCH 31.9 26.7 - 34.0 pg TBH TBH MCHC 34.7 29.9 - 35.2 g/dL TB TB RDW 12.7 11.0 - 15.0 % TBH [...] CLINISYNC - 05/04/2025 7:43 AM EDT Rossana ORR Final Result Performing Organization Address [facility] de Phone Number [facility] * ALL BUN (05/04/2025 7:23 AM EDT) BLOOD UREA NITROGEN 8.0 7.0 - 18.0 mg/dL TB 05/04/2025 7:23 AM EDT 05/04/2025 7:30 AM EDT Narrative CLINISYNC - 05/04/2025 8:21 AM EDT Rossana ORR Final Result Performing Organization Address [facility] de Phone Number [facility] * (ABNORMAL) POCT urinalysis dipstick [...] Negative - 2000(20) ++++ mg/dL Urobilinogen, UA 1.0 0.2 - 12 mg/dL Leukocytes, UA Positive Negative - 500+++ Carlos/mcL Nitrite, UA Negative Negative - Positive Urine 04/30/2025 11:3 3 AM EDT us Mackenzie Rodriguez DO POINT OF CARE TEST ENTER/EDIT OR DERABLES Final Result * (ABNORMAL) GLUCOSE 1 HOUR (04/27/2025 10:05 AM EDT) GLUCOSE 1 HOUR 171(H) <130 mg/dL TB 04/27/2025 10:0 5 AM EDT 04/27/2025 10:06 AM EDT Narrative CLINISYWY - 04/27/2025 10:45 AM EDT Rossana BISWAS LAB BLOOD ORDERABLES Final Resul t [facility] * US OB INCOMPLETE ANATOMY (03/25/2025 8:25 AM EDT) Anatomical Region Laterality Modality Other 03/25/2025 8:25 AM EDT Narrative 03/25/2025 8:27 AM EDT [address] [address] Ultrasound Report Signed Patient: VIMAL FUNES MR#: [id number] : 2000 Acct:[id number] Age/Sex: 24 / F ADM Date: 03/23/25 Loc: US Attending Dr: Mackenzie Rodriguez D.O. Ordering Physician: Mackenzie Rodriguez D.O. Date of Service: 03/23/25 Procedure(s): US OB incomplete anatomy Accession Number(s): [id number] cc: LUIS SEE ; Mackenzie Rodriguez D.O. [address] [address] Patient Name: VIMAL FUNES MRN: [id number] date: 2000 Sex: F Assigned Patient Location: US Current Patient Location: US Accession/Order Number: [id number] Exam Date: 03/25/2025 08:23 Report Date: 03/25/2025 [...] Brown M.D. 03/25/2025 8:25 AM Dictation Location: [place] [address] Electronically authenticated by: [id number] Y Date: 03/25/2025 08:25 Dictated By: Meghana Brown M.D. Signed By: 03/25/25826 DD/ 4 TD/TT: Ethnographer: Procedure Note Radiology, Radiologist, MD - 03/25/2025 [place] [address] Ultrasound Report Signed Patient: VIMAL FUNES MMR#: [id number] : 2000Acct:[id number] Age/Sex: 24 FADM Date: 03/23/25 Loc: US Attending Dr: Mackenzie Rodriguez D.O. Ordering Physician: Mackenzie Rodriguez D.O. Date of Service: 03/23/25 Procedure(s): US OB incomplete anatomy Accession Number(s): [id number] cc: LUIS SEE ; Mackenzie Rodriguez D.O. [place] [id number] Patient Name: VIMAL FUNES MRN: [id number] date: 2000 Sex: F Assigned Patient Location: US Current Patient Location: US Accession/Order Number: [id number] Exam Date: 03/25/2025 08:23 Report Date: 03/25/2025 [...] Brown M.D. 03/25/2025 8:25 AM Dictation Location: [place] [address] Electronically authenticated by: [id number] Y Date: 508:25 Dictated By: Meghana Brown M.D. Signed By:03/25/25826 DD/ 4 TD/TT: Ethnographer: us Mackenzie Rodriguez DO CLINISYNC IMAGING Final Result * US OB CERVICAL LENGTH (03/08/2025 8:36 PM EDT) Anatomical Region Laterality Modality Other 03/08/2025 8:36 PM EDT Narrative 03/08/2025 8:38 PM EDT [address] [address] Ultrasound Report Signed Patient: VIMAL FUNES MR#: [id number] : 2000 Acct:[id number] Age/Sex: 24 / F ADM Date: 03/08/25 Loc: US Attending Dr: Mackenzie Rodriguez D.O. Ordering Physician: Mackenzie Rodriguez D.O. Date of Service: 03/08/25 Procedure(s): US OB cervical length Accession Number(s): [id number] cc: LUIS SEE ; Mackenzie Rodriguez D.O. [address] [address] Patient Name: VIMAL FUNES MRN: [id number] date: 2000 Sex: F Assigned Patient Location: US Current Patient Location: US Accession/Order Number: [id number] Exam Date: 03/08/2025 20:31 Report Date: 03/08/2025 [...] Knapp M.D. 03/08/2025 8:36 PM Dictation Location: [place] [address] Electronically authenticated by: [id number] Y Date: 03/08/2025 20:36 Dictated By: Shivam Knapp D.O. Signed By: 03/08/252037 DD/ 35 TD/TT: Ethnographer: Procedure Note Radiology, Radiologist, MD - 03/08/2025 The [place] [id number] Ultrasound Report Signed Patient: VIMAL FUNES MMR#: [id number] : 2000Acct:[id number] Age/Sex: 24 / FADM Date: 03/08/25 Loc: US Attending Dr: Mackenzie Rodriguez D.O. Ordering Physician: Mackenzie Rodriguez D.O. Date of Service: 03/08/25 Procedure(s): US OB cervical length Accession Number(s): [id number] cc: LUIS SEE ; Mackenzie Rodriguez D.O. [facility] [place] [id number] Patient Name: VIMAL FUNES MRN: [id number] date: 2000 Sex: F Assigned Patient Location: US Current Patient Location: US Accession/Order Number: [id number] Exam Date: 03/08/2025 20:31 Report Date: 03/08/2025 [...] Knapp M.D. 03/08/2025 8:36 PM [facility]ict[facility] Electron[facility] authenticated by: [id number] Y Date: 0:36 Dictated By: Shivam Knapp D.O. Signed By:03/08/252037 DD/ 35 TD/TT: Ethnographer: us Mackenzie Rodriguez DO CLINISYNC IMAGING Final Result * US OB ANATOMY (03/08/2025 8:36 PM EDT) Anatomical Region Laterality Modality Other 03/08/2025 8:36 PM EDT Narrative 03/08/2025 8:[place] [address] Ultrasound Report Signed Patient: VIMAL FUNES MR#: [id number] : 2000 Acct:[id number] Age/Sex: 24 / F ADM Date: 03/08/25 Loc: US Attending Dr: Mackenzie Rodriguez D.O. Ordering Physician: Mackenzie Rodriguez D.O. Date of Service: 03/08/25 Procedure(s): US OB anatomy Accession Number(s): [id number] cc: LUIS SEE ; Mackenzie Rodriguez D.O. [place] [address] Patient Name: VIMAL FUNES MRN: [id number] date: 2000 Sex: F Assigned Patient Location: US Current Patient Location: US Accession/Order Number: [id number] Exam Date: 03/08/2025 20:31 Report Date: 03/08/2025 [...] Knapp M.D. 03/08/2025 8:36 PM Dictation Location: [employer] Electronically authenticated by: [id number] Y Date: 03/08/2025 20:36 Dictated By: Shivam Knapp D.O. Signed By: 03/08/252037 DD/ 35 TD/TT: Ethnographer: Procedure Note Radiology, Radiologist, MD - 03/08/2025 [place] [address] Ultrasound Report Signed Patient: VIMAL FUNES MMR#: [id number] : 2000Acct:[id number] Age/Sex: 24 FADM Date: 03/08/25 Loc: US Attending Dr: Mackenzie Rodriguez D.O. Ordering Physician: Mackenzie Rodriguez D.O. Date of Service: 03/08/25 Procedure(s): US OB anatomy Accession Number(s): [id number] cc: LUIS SEE ; Mackenzie Rodriguez D.O. [facility] [place] [id number] Patient Name: VIMAL FUNES MRN: [id number] date: 2000 Sex: F Assigned Patient Location: US Current Patient Location: US Accession/Order Number: [id number] Exam Date: 03/08/2025 20:31 Report Date: 03/08/2025 [...] Knapp M.D. 03/08/2025 8:36 PM Dictation Location: [employer] Electronically authenticated by: [id number] Y Date: 0:36 Dictated By: Shivam Knapp D.O. Signed By:03/08/252037 DD/ 35 TD/TT: Ethnographer: us Mackenzie Michael DO CLINISYNC IMAGING Final Result * RECURRENT VAGINITIS (HTRX) (02/20/2025 4:33 PM EDT) ATOPOBIUM VAGINAE 0.000 19.961 - 24.689 ppm 02/22/2025 6:32 AM EDT [facility] ATOPOBIUM VAGINAE Not Detected 19.961 - 24.689 ppm 02/22/2025 6:32 AM EDT [facility] 2,3 (BACTERIAL VAGINOSIS ASSOCIATED BACTERIA 2, 3); MOBILUNCUS SPP 0.000 19.961 - 24.689 ppm 02/22/2025 6:32 AM EDT [facility] BVAB 2,3 (BACTERIAL VAGINOSIS ASSOCIATED BACTERIA 2, 3); MOBILUNCUS SPP Not Detected 19.961 - 24.689 ppm 02/22/2025 6:32 AM EDT [facility] SIMEON ALBICANS, PARAPSILOSIS, TROPICALIS 0.000 19.961 - 30.770 ppm 02/22/2025 6:32 AM EDT [facility] SIMEON ALBICANS, PARAPSILOSIS, TROPICALIS Not Detected 19.961 - 30.770 ppm 02/22/2025 6:32 AM EDT [facility] SIMEON GLABRATA 0.000 23.000 - 32.138 ppm 02/22/2025 6:32 AM EDT [facility] SIMEON GLABRATA Not Detected 23.000 - 32.138 ppm 02/22/2025 6:32 AM EDT [facility] SIMEON KRUSEI 0.000 23.000 - 32.271 ppm 02/22/2025 6:32 AM EDT [facility] SIMEON KRUSEI Not Detected 23.000 - 32.271 ppm 02/22/2025 6:32 AM EDT [facility] CHLAMYDIA TRACHOMATIS 0.000 23.000 - 31.467 ppm 02/22/2025 6:32 AM EDT [facility] CHLAMYDIA TRACHOMATIS Not Detected 23.000 - 31.467 ppm 02/22/2025 6:32 AM EDT [facility] GARDNERELLA VAGINALIS 0.000 19.961 - 24.689 ppm 02/22/2025 6:32 AM EDT [facility] GARDNERELLA VAGINALIS Not Detected 19.961 - 24.689 ppm 02/22/2025 6:32 AM EDT [facility] MEGASPHAERA (TYPES 1, 2) 0.000 19.961 - 24.689 ppm 02/22/2025 6:32 AM EDT [facility] MEGASPHAERA (TYPES 1, 2) Not Detected 19.961 - 24.689 ppm 02/22/2025 6:32 AM EDT [facility] NEISSERIA GONORRHOEAE 0.000 23.000 - 32.117 ppm 02/22/2025 6:32 AM EDT [facility] NEISSERIA GONORRHOEAE Not Detected 23.000 - 32.117 ppm 02/22/2025 6:32 AM EDT [facility] TRICHOMONAS VAGINALIS 0.000 23.000 - 32.119 ppm 02/22/2025 6:32 AM EDT [facility] TRICHOMONAS VAGINALIS Not Detected 23.000 - 32.119 ppm 02/22/2025 6:32 AM EDT [facility] MYCOPLASMA GENITALIUM 0.000 19.961 - 24.689 ppm 02/22/2025 6:32 AM EDT [facility] MYCOPLASMA GENITALIUM Not Detected 19.961 - 24.689 ppm 02/22/2025 6:32 AM EDT [facility] Tissue 02/20/2025 4:33 PM EDT 02/22/2025 1:53 AM EDT us Rossana BISWAS LAB BLOOD ORDERABLES Final Resul t [facility] [address] [place] [address] * URINARY TRACT INFECTION (HTRX) (02/20/2025 4:30 PM EDT) Pathologist [facility] ACINETOBACTER BAUMANII 0.000 19.961 - 24.689 ppm 02/22/2025 6:52 AM EDT [facility] ACINETOBACTER BAUMANII Not Detected 19.961 - 24.689 ppm 02/22/2025 6:52 AM EDT [facility] CITROBACTER FREUNDII 0.000 23.000 - 31.881 ppm 02/22/2025 6:52 AM EDT [facility] CITROBACTER FREUNDII Not Detected 23.000 - 31.881 ppm 02/22/2025 6:52 AM EDT [facility] ENTEROBACTER AEROGENES, CLOACAE 0.000 23.000 - 31.535 ppm 02/22/2025 6:52 AM EDT [facility] ENTEROBACTER AEROGENES, CLOACAE Not Detected 23.000 - 31.535 ppm 02/22/2025 6:52 AM EDT [facility] ENTEROCOCCUS FAECALIS, FAECIUM 0.000 26.000 - 31.575 ppm 02/22/2025 6:52 AM EDT [facility] ENTEROCOCCUS FAECALIS, FAECIUM Not Detected 26.000 - 31.575 ppm 02/22/2025 6:52 AM EDT [facility] ESCHERICHIA COLI 0.000 23.000 - 28.500 ppm 02/22/2025 6:52 AM EDT [facility] ESCHERICHIA COLI Not Detected 23.000 - 28.500 ppm 02/22/2025 6:52 AM EDT [facility] KLEBSIELLA PNEUMONIAE, OXYTOCA 0.000 23.000 - 30.500 ppm 02/22/2025 6:52 AM EDT [facility] KLEBSIELLA PNEUMONIAE, OXYTOCA Not Detected 23.000 - 30.500 ppm 02/22/2025 6:52 AM EDT [facility] MORGANELLA MORGANII 0.000 19.961 - 24.689 ppm 02/22/2025 6:52 AM EDT [facility] MORGANELLA MORGANII Not Detected 19.961 - 24.689 ppm 02/22/2025 6:52 AM EDT [facility] PROTEUS MIRABILIS, VULGARIS 0.000 23.000 - 28.500 ppm 02/22/2025 6:52 AM EDT [facility] PROTEUS MIRABILIS, VULGARIS Not Detected 23.000 - 28.500 ppm 02/22/2025 6:52 AM EDT [facility] PSEUDOMONAS AERUGINOSA 0.000 23.000 - 28.500 ppm 02/22/2025 6:52 AM EDT [facility] PSEUDOMONAS AERUGINOSA Not Detected 23.000 - 28.500 ppm 02/22/2025 6:52 AM EDT [facility] STAPHYLOCOCCUS AUREUS 0.000 26.000 - 30.902 ppm 02/22/2025 6:52 AM EDT [facility] STAPHYLOCOCCUS AUREUS Not Detected 26.000 - 30.902 ppm 02/22/2025 6:52 AM EDT [facility] STREPTOCOCCUS AGALACTIAE (GROUP B STREP) 0.000 26.000 - 32.222 ppm 02/22/2025 6:52 AM EDT [facility] STREPTOCOCCUS AGALACTIAE (GROUP B STREP) Not Detected 26.000 - 32.222 ppm 02/22/2025 6:52 AM EDT [facility] SIMEON ALBICANS, PARAPSILOSIS, TROPICALIS 0.000 19.961 - 30.770 ppm 02/22/2025 6:52 AM EDT [facility] SIMEON ALBICANS, PARAPSILOSIS, TROPICALIS Not Detected 19.961 - 30.770 ppm 02/22/2025 6:52 AM EDT [facility] SIMEON GLABRATA 0.000 23.000 - 32.138 ppm 02/22/2025 6:52 AM EDT [facility] SIMEON GLABRATA Not Detected 23.000 - 32.138 ppm 02/22/2025 6:52 AM EDT [facility] SIMEON KRUSEI 0.000 23.000 - 32.271 ppm 02/22/2025 6:52 AM EDT [facility] SIMEON KRUSEI Not Detected 23.000 - 32.271 ppm 02/22/2025 6:52 AM EDT [facility] SERRATIA MARCESCENS 0.000 23.000 - 31.204 ppm 02/22/2025 6:52 AM EDT [facility] SERRATIA MARCESCENS Not Detected 23.000 - 31.204 ppm 02/22/2025 6:52 AM EDT [facility] STREPTOCOCCUS PYOGENES (GROUP A STREP) 0.000 19.961 - 24.689 ppm 02/22/2025 6:52 AM EDT [facility] STREPTOCOCCUS PYOGENES (GROUP A STREP) Not Detected 19.961 - 24.689 ppm 02/22/2025 6:52 AM EDT [facility] STAPHYLOCOCCUS EPIDERMIDIS, HAEMOLYTICUS, LUGDUNENSIS, SAPROPHYTICUS (URINA 0.000 19.961 - 24.689 ppm 02/22/2025 6:52 AM EDT [facility] STAPHYLOCOCCUS EPIDERMIDIS, HAEMOLYTICUS, LUGDUNENSIS, SAPROPHYTICUS (URINA Not Detected 19.961 - 24.689 ppm 02/22/2025 6:52 AM EDT [facility] STAPHYLOCOCCUS EPIDERMIDIS, HAEMOLYTICUS, LUGDUNENSIS, SAPROPHYTICUS (URINA 0.000 19.961 - 24.689 ppm 02/22/2025 6:52 AM EDT [facility] STAPHYLOCOCCUS EPIDERMIDIS, HAEMOLYTICUS, LUGDUNENSIS, SAPROPHYTICUS (URINA Not Detected 19.961 - 24.689 ppm 02/22/2025 6:52 AM EDT [facility] Urine 02/20/2025 4:30 PM EDT 02/22/2025 1:52 AM EDT us Rossana [facility] BLOOD ORDERABLES Final Resul t [facility] [address] [place] [address] * IGP,APTIMA HPV,AGE GDLN (02/20/2025 3:50 PM EDT) AGE GDLN ACOG TESTING Note . [facility] Comment: TESTS RESULT FLAG UNITS REF RANGE LAB Clinician Provided Cytology Information Source.............Endoc[employer]ix No. of containers..01 ThinPrep Vial Age Algo ACOG Yris... -24 10 FLAG LEGEND: L-Low Normal,H-High Normal,LL-Alert Low,HH-Alert High <-Panic Low,>-Panic High,A-Abnormal,AA-Critical Abnormal Performed at: 01 =G [facility] [place] [address] [place] [address] Jenise Byrne MD, IGP, RFX APTIMA HPV ASCU Note . [facility] Comment: TESTS RESULT FLAG UNITS REF RANGE LAB DIAGNOSIS: 02 NEGATIVE FOR INTRAEPITHELIAL LESION OR MALIGNANCY. Specimen adequacy: 02 Satisfactory for evaluation. Endocervical and/or squamous metaplastic cells (endocervical component) are present. Performed by: Hussein Alvarez, Food And Beverage Intern ([facility]) . 02 Note: Note 02 The [...] <-Panic Low,>-Panic High,A-Abnormal,AA-Critical Abnormal Performed at: [address] [address] Jenise Byrne MD, Performed at: = - [facility] [address] [id number] [place]: Jenise Byrne MD, Phone: [phone] Performed at: [facility] [address] [id number] [place]: Jenise Byrne MD, Phone: [phone] 02/20/2025 3:50 PM EDT 02/20/2025 9:13 PM EDT Narrative CLINIS[facility] - 02/23/2025 1:08 PM EDT [facility] Rossana [facility]IS[facility] LAB BLOOD ORDERABLES Final Resul t Performing Organization Address [facility] Co de Phone Number [facility] * Pap Smear (02/20/2025 12:00 AM EDT) Swab Cervical swab / Unknown Rossana [facility] CYTOLOGY ORDERABLES Final Re sult Performing Organization Address [facility] Co de Phone Number EXTERNAL LAB from Last 3 Months Insurance [facility] [employer]ICA[employer] Care Teams Wireless Engineer Relationship Specialty Start Date End Date Unallocated, Noms Provider, [address] [place], [place] [phone] PCP - General Family Medicine 08/03/24
--- OUTSIDE RECORDS SUMMARY | 2025-05-09 13:55 | XMS_ITS | Encounter Summary ---
Author Organization [facility] Address [address] [place] [address] Care Team Providers Care Computer Engineering Professor Name Role Phone Unallocated, Noms Provider Primary Care Provi krissy Encounter Details Date Type Department Care Team (Late st Contact Info) Description 03/06/2025 Orders Only ARJUN PANG [address] [place] [address] Kavitha Almanza MA Social History Tobacco [...] 2:40 PM EDT Routine [facility] P[facility] [address] [place] [address] Jose Rodriguez DO [address], [facility] documented as of this encounter Procedures Procedure Name Priority Date/Time Associated Diagnosis Comments PAP SMEAR Routine 02/20/2025 12:00 AM EDT documented in this encounter Results * Pap Smear (02/20/2025 12:00 AM EDT) Swab Cervical swab / Unknown us Rossana [facility] CYTOLOGY ORDERABLES Final Re sult EXTERNAL LAB documented in this encounter Visit Diagnoses Not on filedocumented in this encounter Care Teams Computer Engineering Professor Relationship Specialty Start Date End Date Unallocated, Noms Provider, [address] [place] [id number] PCP - General Family Medicine 08/03/24 documented as of this encounter
[2025-05-09 14:06] VITALS: BP 141/96; PULSE 81
--- OUTSIDE RECORDS SUMMARY | 2025-05-09 14:06 | XMS_ITS | CCD ---
Author Organization [facility] Care Team Providers Care Regulatory Affairs Coordinator Name Role Phone MICHAEL ., DR MANN [...] Unavailable MISC, DR DOMINIQUE Primary Care Unavailable MICANOPY, DR COCO Danielle Consulting Unavailable MICHAEL ., DR MANN Consulting Unavailable MICHAEL ., DR MANN Admitting Unavailable MICHAEL ., DR MANN Attending Unavailable MISC, DR DOMINIQUE Primary Care Unavailable MICHAEL ., DR MANN Consulting Unavailable MICHAEL ., DR MANN Admitting Unavailable MICHAEL ., DR MANN Attending Unavailable MISC, DR DOMINIQUE Primary Care Unavailable MICANOPY, DR COCO Danielle Consulting Unavailable MICHAEL ., [...] antepartum, gestational diabetes method of control unspecified ([facility]) , Elevated glucose tolerance test 1 [...] ] Onset: 05-01-2022 Episodic Unclassified (1 source) [facility] SPCF DIS/COND COMPL ; Translations: [OT SPCF [...] URINE RANDOM <6.0 NINF - 11.9 mg/dL [facility] TOTAL VOLUME 24 HOUR URINE 3700 mL/24hr [facility] CBC WITH AUTO DIFFon BASOPHILS ABSOLUTE AUTO 0 [facility] Basophils/100 WBC (Bld) 0.2 % 0.2 - 2.0 % [facility] Eosinophils/100 WBC (Bld) 2.6 % 0.9 - 7.0 % [facility] Erythrocyte distribution width (RBC) [Ratio] 12.7 % 11.0 - 15.0 % [facility] Hematocrit (Bld) [Volume fraction] 39.5 % 36.0 - 48.0 % [facility] Hemoglobin (Bld) [Mass/Vol] 13.7 g/dL 12.0 - 16.0 g/dL [facility] IMMATURE GRANULOCYTES ABS AUTO 0.[address] [facility] Immature granulocytes/100 WBC (Bld) 0.4 % 0.0 - 0.5 % [facility] Interpretation and review of laboratory results Abnormal [facility] LYMPHOCYTES ABSOLUTE AUTO 1.6 [facility] Lymphocytes/100 WBC (Bld) 12.6 % Low 20.5 - 60.0 % [facility] MCH (RBC) [Entitic mass] 31.9 pg 26.7 - 34.0 pg [facility] MCHC (RBC) [Mass/Vol] 34.7 g/dL 29.9 - 35.2 g/dL [facility] MCV (RBC) [Entitic vol] 92.1 fL 81.0 - 99.0 fL [facility] MONOCYTES ABSOLUTE AUTO 0.6 [facility] Monocytes/100 WBC (Bld) 5 % 1.7 - 12.0 % [facility] NEUTROPHILS ABSOLUTE AUTO 9.9 High [facility] Neutrophils/100 WBC (Bld) 79.2 % High 43.0 - 75.0 % [facility] Platelet mean volume (Bld) [Entitic vol] 11 fL 9.5 - 13.5 fL [facility] TBH EO # 0.3 [facility] PLT 226 [facility] RBC 4.29 [facility] WBC 12.5 High [facility] US OB BPP W NON-STRESS on 05-04-2025 [place] [address] Ultrasound Report Signed Patient: VIMAL FUNES MR#: [id number] : 2000 Acct:[id number] Age/Sex: 25 / F ADM Date: 05/04/25 Loc: [place] [address]: Rossana Leach Ordering Physician: Rossana Leach Date of Service: 05/04/25 Procedure(s): US OB BPP w non-stress Accession Number(s): [id number] cc: JENNIFER Watkins [place] [id number] Patient Name: VIMAL FUNES MRN: [id number]:[id number] date: 2000 Sex: F Assigned Patient [facility] Current Patient Location: [facility] Accession/Order Number: [id number] Exam Date: 05/04/2025 12:08 Report Date: 05/04/2025 12:09 At the request of: ROSSANA LEACH Procedure: US OB BPP w non-stress Biophysical profile. Reason for exam: Gestational diabetes COMPARISON: None TECHNIQUE: Transabdominal imaging of the gravid uterus was obtained. FINDINGS: The cosmetic counselor reports a BPP of 8 out of 8. DANYA is normal at 12.4 cm. heart rate 150 bpm. US/US OB BPP w non-stress IMPRESSION: BPP 8 out of 8. Impression dictated by: Bulmaro Arias Jr., D.O. 05/04/2025 12:09 PM Dictation Location: [place] [address] Electronically authenticated by: [id number] Y Date: 05/04/2025 12:09 Dictated By: Bulmaro Arias M.D. Signed By: 05/04/25 1212 DD/ 1209 TD/TT: Field Liability Generalist: [facility] Radiology, Radiologist, - 05/04/2025 [place] [address] Ultrasound Report Signed Patient: VIMAL FUNES MR#: [id number] : 2000 Acct:[id number] Age/Sex: 25 / F ADM Date: 05/04/25 Loc: [place] [address]- Attending Dr: Rossana Leach Ordering Physician: Rossana Leach Date of Service: 05/04/25 Procedure(s): US OB BPP w non-stress Accession Number(s): [id number] cc: Rossana Leach; JENNIFER SEE The [place] [id number] Patient Name: VIMAL FUNES MRN: [facility]:[id number] date: 2000 Sex: F Assigned Patient [facility] Current Patient Location: [facility] Accession/Order Number: [id number] Exam Date: 05/04/2025 12:08 Report Date: 05/04/2025 12:09 At the request of: ROSSANA LEACH Procedure: US OB BPP w non-stress Biophysical profile. Reason for exam: Gestational diabetes COMPARISON: None TECHNIQUE: Transabdominal imaging of the gravid uterus was obtained. FINDINGS: The cosmetic counselor reports a BPP of 8 out of 8. DANYA is normal at 12.4 cm. heart rate 150 bpm. US/US OB BPP w non-stress IMPRESSION: BPP 8 out of 8. Impression dictated by: Bulmaro Arias Jr., D.O. 05/04/2025 12:09 PM Dictation Location: [facility] Electronically authenticated by: [id number] Y Date: 05/04/2025 12:09 Dictated By: Bulmaro Arias M.D. Signed By: 05/04/25 1212 DD/ 1209 TD/TT: Field Liability Generalist: [facility] Radiology Study observation (narrative) [facility] US OB BPP W NON-STRESS Ordered By: Radiologist Radiology on 05-04-2025 [facility] [employer] Work Phone: US OB GROWTHon 05-04-[address] [address] Ultrasound Report Signed Patient: VIMAL FUNES MR#: [id number] : 2000 Acct:[id number] Age/Sex: 25 / F ADM Date: 05/04/25 Loc: [facility]-[address]: Rossana Leach Ordering Physician: Rossana Leach Date of Service: 05/04/25 Procedure(s): US OB growth Accession Number(s): [id number] cc: Rossana Leach; JENNIFER SEE [address] [address] Patient Name: VIMAL FUNES MRN: [id number]:[id number] date: 2000 Sex: F Assigned Patient Location: [facility] Current Patient Location: [facility] Accession/Order Number: [id number] Exam Date: 05/04/2025 12:06 Report Date: 05/04/2025 [...] Jr., D.O. 05/04/2025 12:08 PM Dictation Location[facility] Electronically authenticated by: [id number] Y Date: 05/04/2025 12:08 Dictated By: Bulmaro Arias M.D. Signed By: 05/04/25 1211 DD/ 1208 TD/TT: Field Liability Generalist: [facility] Radiology, Radiologist, MD - 05/04/2025 [place] [address] Ultrasound Report Signed Patient: VIMAL FUNES MR#: [id number] : 2000 Acct:[id number] Age/Sex: 25 / F ADM Date: 05/04/25 Loc: [place] [address]: Rossana Leach Ordering Physician: Rossana Leach Date of Service: 05/04/25 Procedure(s): US OB growth Accession Number(s): [id number] cc: Rossana Leach; JENNIFER SEE [address] [address] Patient Name: VIMAL FUNES MRN: [facility]:[id number] date: 2000 Sex: F Assigned Patient Location: [facility] Current Patient Location: [facility] Accession/Order Number: [id number] Exam Date: 05/04/2025 12:06 Report Date: 05/04/2025 [...] Jr., D.O. 05/04/2025 12:08 PM Dictation Location: [employer] Electronically authenticated by: [id number] Y Date: 05/04/2025 12:08 Dictated By: Bulmaro Arias M.D. Signed By: 05/04/25 1211 DD/ 1208 TD/TT: Field Liability Generalist: [facility] Radiology Study observation (narrative) [facility] US OB GROWTHOrdered By: Jeimy ologist Radiology on 05-04-2025 [facility] Work Phone: Urinalysis macro (dipstick) panel (U)on 04-30-2025 Bilirubin, UA Negative Negative - 4(70) +++ mg/dL [facility] Blood, UA Negative Negative - 50 Jason/mcL [facility] Clarity, UA Clear [facility] re Color, UA Yellow [facility] Glucose, UA Positive Negative - 2000(110) ++++ mg/dL [facility] Interpretation and review of laboratory results Abnormal [facility] Ketones, UA Negative Negative - 160(16) ++++ mg/dL [facility] Leukocytes, UA Positive Negative - 500+++ Carlos/mcL [facility] Nitrite, UA Negative Negative - Positive [facility] pH, UA 6 5 - 9 [facility] e Protein, UA Negative Negative - 2000(20) ++++ mg/dL [facility] Spec Grav, UA 1.01 1 - 1.03 [facility] Urobilinogen, UA 1.0 0.2 - 12 mg/dL [facility] Health[facility] e ALL CBC WITH AUTO DIFFon BASOPHILS ABSOLUTE AUTO 0 [facility] Basophils/100 WBC (Bld) 0.2 % 0.2 - 2.0 % [facility] Eosinophils/100 WBC (Bld) 2.2 % 0.9 - 7.0 % [facility] Erythrocyte distribution width (RBC) [Ratio] 12.9 % 11.0 - 15.0 % [facility] Hematocrit (Bld) [Volume fraction] 40 % 36.0 - 48.0 % [facility] Hemoglobin (Bld) [Mass/Vol] 13.6 g/dL 12.0 - 16.0 g/dL [facility] IMMATURE GRANULOCYTES ABS AUTO 0.[address] [facility] Immature granulocytes/100 WBC (Bld) 0.3 % 0.0 - 0.5 % [facility] Interpretation and review of laboratory results Abnormal [facility] LYMPHOCYTES ABSOLUTE AUTO 1.4 [facility] Lymphocytes/100 WBC (Bld) 10.8 % Low 20.5 - 60.0 % [facility] MCH (RBC) [Entitic mass] 31.7 pg 26.7 - 34.[address] [facility] MCHC (RBC) [Mass/Vol] 34 g/dL 29.9 - 35.2 g/dL [facility] MCV (RBC) [Entitic vol] 93.2 fL 81.0 - 99.[address] [facility] MONOCYTES ABSOLUTE AUTO 0.5 [facility] Monocytes/100 WBC (Bld) 4.3 % 1.7 - 12.0 % [facility] NEUTROPHILS ABSOLUTE AUTO 10.[address] [facility] Neutrophils/100 WBC (Bld) 82.2 % High 43.0 - 75.0 % [facility] Platelet mean volume (Bld) [Entitic vol] 10.6 fL 9.5 - 13.[address] [facility] TBH EO # 0.3 [facility] TB PLT 202 [facility] e TB RBC 4.29 [facility] TB WBC 12.5 High [facility] e Urinalysis macro (dipstick) panel (U)on 04-25-2025 Bilirubin, UA Negative Negative - 4(70) +++ mg/dL [facility] Blood, UA Negative Negative - 50 Jason/mcL [facility] Clarity, UA Clear [facility] re Color, UA Yellow [facility] e Glucose, UA Negative Negative - 1999(110) ++++ mg/dL [facility] Interpretation and review of laboratory results Normal [facility] Ketones, UA Negative Negative - 160(16) ++++ mg/dL [facility] Leukocytes, UA Negative Negative - 500+++ Carlos/mcL [facility] Nitrite, UA Negative Negative - Positive [facility] pH, UA 6.5 5 - 9 [facility] Protein, UA Negative Negative - 1999(20) ++++ mg/dL [facility] Spec Grav, UA 1.01 1 - 1.03 [facility] Urobilinogen, UA 0.2 0.2 - 12 mg/dL [facility] Urinalysis macro (dipstick) panel (U)on 04-11-2025 Bilirubin, UA Negative Negative - 4(70) +++ mg/dL [facility] Blood, UA Negative Negative - 50 Jason/mcL [facility] Clarity, UA Clear [facility] re Color, UA Yellow [facility] Glucose, UA Negative Negative - 1999(110) ++++ mg/dL [facility] Interpretation and review of laboratory results Normal [facility] Ketones, UA Negative Negative - 160(16) ++++ mg/dL [facility] Leukocytes, UA Negative Negative - 500+++ Carlos/mcL [facility] Nitrite, UA Negative Negative - Positive [facility] pH, UA 7 5 - 9 [facility] Protein, UA Negative Negative - 1999(20) ++++ mg/dL [facility] Spec Grav, UA 1.005 1 - 1.03 [facility] Urobilinogen, UA 1.0 0.2 - 12 mg/dL [facility] US OB INCOMPLETE ANATOMYon 0 03-25-2025 [place] [address] Ultrasound Report Signed Patient: VIMAL FUNES MR#: [id number] : 2000 Acct:[id number] Age/Sex: 24 / F ADM Date: 03/23/25 Loc: US Attending Dr: Jose Rodriguez D.O. Ordering Physician: Jose Rodriguez D.O. Date of Service: 03/23/25 Procedure(s): US OB incomplete anatomy Accession Number(s): [id number] cc: JENNIFER SEE ; Jose Rodriguez D.O. [address] [address] Patient Name: VIMAL FUNES MRN: [id number] date: 2000 Sex: F Assigned Patient Location: US Current Patient Location: US Accession/Order Number: [id number] Exam Date: 03/25/2025 08:23 Report Date: 03/25/2025 [...] Brown M.D. 03/25/2025 8:25 AM Dictation Location: [place] [address] Electronically authenticated by: [id number] Y Date: 03/25/2025 08:25 Dictated By: Meghana Brown M.D. Signed By: 03/25/25826 DD/ 4 TD/TT: Field Liability Generalist: [facility] Radiology, Radiologist, MD - 03/25/2025 [place] [address] Ultrasound Report Signed Patient: VIMAL FUNES MR#: [id number] : 2000 Acct:[id number] Age/Sex: 24 / F ADM Date: 03/23/25 Loc: US Attending Dr: Jose Rodriguez D.O. Ordering Physician: Jose Rodriguez D.O. Date of Service: 03/23/25 Procedure(s): US OB incomplete anatomy Accession Number(s): [id number] cc: JENNIFER SEE ; Jose Rodriguez D.O. The [place] [id number] Patient Name: VIMAL FUNES MRN: [facility]:[id number] date: 2000 Sex: F Assigned Patient Location: US Current Patient Location: US Accession/Order Number: [id number] Exam Date: 03/25/2025 08:23 Report Date: 03/25/2025 [...] Brown M.D. 03/25/2025 8:25 AM Dictation Location: [place] [address] Electronically authenticated by: [id number] Y Date: 03/25/2025 08:25 Dictated By: Meghana Brown M.D. Signed By: 03/25/25826 DD/ 4 TD/TT: Field Liability Generalist: [facility] Radiology Study observation (narrative) [facility] US OB INCOMPLETE ANATOMYOrde red By: Radiologist Radiology on 03-25-2025 [facility] [facility] Work Phone: Urinalysis macro (dipstick) panel (U)on 03-14-2025 Bilirubin, UA Negative Negative - 4(70) +++ mg/dL [facility] Blood, UA Negative Negative - 50 Jason/mcL [facility] Clarity, UA Clear [facility] re Color, UA Yellow [facility] e Glucose, UA Negative Negative - 1999(110) ++++ mg/dL [facility] Interpretation and review of laboratory results Normal [facility] Ketones, UA Negative Negative - 160(16) ++++ mg/dL [facility] Leukocytes, UA Negative Negative - 500+++ Carlos/mcL [facility] Nitrite, UA Negative Negative - Positive [facility] pH, UA 7 5 - 9 [facility] e Protein, UA Negative Negative - 1999(20) ++++ mg/dL [facility] Spec Grav, UA 1.01 1 - 1.03 [facility] Urobilinogen, UA 0.2 0.2 - 12 mg/dL [facility] [facility] No Panel InformationOrdered By: Radiologist Radiology on 03-08-2025 [facility] Work Phone: No Panel Informationon 03-08 Radiology Study observation (narrative) [facility] US OB ANATOMYon 03-08-2025 [place] [address] Ultrasound Report Signed Patient: VIMAL FUNES MR#: [id number] : 2000 Acct:[id number] Age/Sex: 24 / F ADM Date: 03/08/25 Loc: US Attending Dr: Jose Rodriguez D.O. Ordering Physician: Jose Rodriguez D.O. Date of Service: 03/08/25 Procedure(s): US OB anatomy Accession Number(s): [id number] cc: JENNIFER SEE ; Jose Rodriguez D.O. [place] [id number] Patient Name: VIMAL FUNES MRN: [id number] date: 2000 Sex: F Assigned Patient Location: US Current Patient Location: US Accession/Order Number: [id number] Exam Date: 03/08/2025 20:31 Report Date: 03/08/2025 [...] Knapp M.D. 03/08/2025 8:36 PM Dictation Location: [employer] Electronically authenticated by: [id number] Y Date: 03/08/2025 20:36 Dictated By: Shivam Knapp D.O. Signed By: 03/08/252037 DD/ 35 TD/TT: Field Liability Generalist: [facility] Radiology, Radiologist, - 03/08/2025 [place] [address] Ultrasound Report Signed Patient: VIMAL FUNES MR#: [id number] : 2000 Acct:[id number] Age/Sex: 24 / F ADM Date: 03/08/25 Loc: US Attending Dr: Jose Rodriguez D.O. Ordering Physician: Jose Rodriguez D.O. Date of Service: 03/08/25 Procedure(s): US OB anatomy Accession Number(s): [id number] cc: JENNIFER SEE ; Jose Rodriguez D.O. [place] [address] Patient Name: VIMAL FUNES MRN: [facility]:[id number] date: 2000 Sex: F Assigned Patient Location: US Current Patient Location: US Accession/Order Number: [id number] Exam Date: 03/08/2025 20:31 Report Date: 03/08/2025 [...] Knapp M.D. 03/08/2025 8:36 PM Dictation Location: [place] [address] Electronically authenticated by: [id number] Y Date: 03/08/2025 20:36 Dictated By: Shivam Knapp D.O. Signed By: 03/08/252037 DD/ 35 TD/TT: Field Liability Generalist: [facility] OB CERVICAL LENGTHon 02-24 [place] [address] Ultrasound Report Signed Patient: VIMAL FUNES MR#: [id number] : 2000 Acct:[id number] Age/Sex: 24 / F ADM Date: 03/08/25 Loc: US Attending Dr: Jose Rodriguez D.O. Ordering Physician: Jose Rodriguez D.O. Date of Service: 03/08/25 Procedure(s): US OB cervical length Accession Number(s): [id number] cc: JENNIFER SEE ; Jose Rodriguez D.O. [address] [address] Patient Name: VIMAL FUNES MRN: [id number]:[id number] date: 2000 Sex: F Assigned Patient Location: US Current Patient Location: US Accession/Order Number: [id number] Exam Date: 03/08/2025 20:31 Report Date: 03/08/2025 [...] Knapp M.D. 03/08/2025 8:36 PM Dictation Location: [place] [address] Electronically authenticated by: [id number] Y Date: 03/08/2025 20:36 Dictated By: Shivam Knapp D.O. Signed By: 03/08/252037 DD/ 35 TD/TT: Field Liability Generalist: [facility] Radiology, Radiologist, MD - 03/08/2025 [place] [address] Ultrasound Report Signed Patient: VIMAL FUNES MR#: [id number] : 2000 Acct:[id number] Age/Sex: 24 / F ADM Date: 03/08/25 Loc: US Attending Dr: Jose Rodriguez D.O. Ordering Physician: Jose Rodriguez D.O. Date of Service: 03/08/25 Procedure(s): US OB cervical length Accession Number(s): [id number] cc: JENNIFER SEE ; Jose Rodriguez D.O. The [address] [address] Patient Name: VIMAL FUNES MRN: [id number]:[id number] date: 2000 Sex: F Assigned Patient Location: Current Patient Location: Accession/Order Number: [id number] Exam Date: 03/08/2025 20:31 Report Date: 03/08/2025 [...] Knapp M.D. 03/08/2025 8:36 PM Dictation Location: [employer] Electronically authenticated by: [id number] Y Date: 03/08/2025 20:36 Dictated By: Shivam Knapp D.O. Signed By: 03/08/252037 DD/ 35 TD/TT: Field Liability Generalist: ARJUN Martinez IGP,APTIMA HPV,AGE GDLNon AGE GDLN ACOG TESTING Note . RUTH Martinez Comment on above: TESTS RESULT FLAG UN ITS REF RANGE LAB Clinician Provided Cytology Information Source.............End[employer]ix No. of containers..01 ThinPrep Vial Age Ramirez MORALES Yris... FLAG LEGEND: L-Low Normal,H-High Normal,LL-Alert Low,HH-Alert High <-Panic Low,>-Panic High,A-Abnormal,AA-Critical Abnormal Performed at: 01 =G [address] [address] Jenise Byrne MD, IGP, RFX APTIMA HPV ASCU Note . [facility] Comment on above: TESTS RESULT FLAG UN ITS REF RANGE LAB DIAGNOSIS: 02 NEGATIVE FOR INTRAEPITHELIAL LESION OR MALIGNANCY. Specimen adequacy: 02 Satisfactory for evaluation. Endocervical and/or squamous metaplastic cells (endocervical component) are present. Performed by: 02 Whitney Alvarez Screen Writer ([facility]) . 02 Note: Note [...] <-Panic Low,>-Panic High,A-Abnormal,AA-Critical Abnormal Performed at: [address] [address] Jenise Byrne MD, Performed at: = - [address] [id number] Independent Driver: Jenise Byrne MD, Phone: [phone] Performed at: [address] [id number] Independent Driver: Jenise Byrne MD, Phone: [phone] [facility] RECURRENT VAGINITIS (HTRX)on 02-22-2025 ATOPOBIUM VAGINAE 0 [facility] ATOPOBIUM VAGINAE Not detected [facility] BVAB 2,3 (BACTERIAL VAGINOSIS ASSOCIATED BACTERIA 2, 3); MOBILUNCUS SPP 0 [facility] BVAB 2,3 (BACTERIAL VAGINOSIS ASSOCIATED BACTERIA 2, 3); MOBILUNCUS SPP Not detected [facility] SIMEON ALBICANS, PARAPSILOSIS, TROPICALIS 0 [facility] SIMEON ALBICANS, PARAPSILOSIS, TROPICALIS Not detected [facility] GLABRATA 0 [facility] SIMEON GLABRATA Not detected [facility] SIMEON KRUSEI 0 [facility] SIMEON KRUSEI Not detected [facility] CHLAMYDIA TRACHOMATIS 0 [facility] CHLAMYDIA TRACHOMATIS Not detected N [facility] GARDNERELLA VAGINALIS 0 [facility] GARDNERELLA VAGINALIS Not detected N [facility] MEGASPHAERA (TYPES 1, 2) 0 [facility] MEGASPHAERA (TYPES 1, 2) Not detected [facility] MYCOPLASMA GENITALIUM [address] [facility] MYCOPLASMA GENITALIUM Not detected N [facility] NEISSERIA GONORRHOEAE 0 [facility] NEISSERIA GONORRHOEAE Not detected N [facility] TRICHOMONAS VAGINALIS 0 [facility] TRICHOMONAS VAGINALIS Not detected N [facility] Urinalysis macro (dipstick) panel (U)on 02-20-2025 Bilirubin, UA Negative Negative - 4(70) +++ mg/dL [facility] Blood, UA Negative Negative - 50 Jason/mcL [facility] Clarity, UA Clear [facility] re Color, UA Yellow [facility] Glucose, UA Negative Negative - 1999(110) ++++ mg/dL [facility] Interpretation and review of laboratory results Abnormal [facility] Ketones, UA Negative Negative - 160(16) ++++ mg/dL [facility] Leukocytes, UA Negative Negative - 500+++ Carlos/mcL [facility] Nitrite, UA Negative Negative - Positive [facility] pH, UA 7 5 - 9 [facility] Protein, UA Negative Negative - 1999(20) ++++ mg/dL [facility] Spec Grav, UA 1.01 1 - 1.03 [facility] Urobilinogen, UA 0.2 0.2 - 12 mg/dL [facility] Urinalysis macro (dipstick) panel (U)on 01-14-2025 Bilirubin, UA Negative Negative - 4(70) +++ mg/dL [facility] Blood, UA Positive Negative - 50 Jason/mcL [facility] Healthcare Comment on above: trace-intact Clarity, UA Clear [facility] re Color, UA Yellow [facility] Glucose, UA Negative Negative - 1999(110) ++++ mg/dL [facility] Interpretation and review of laboratory results Abnormal [facility] Ketones, UA Negative Negative - 160(16) ++++ mg/dL [facility] Leukocytes, UA Negative Negative - 500+++ Carlos/mcL [facility] Healthcare Nitrite, UA Negative Negative - Positive [facility] pH, UA 6 5 - 9 [facility] Protein, UA Negative Negative - 1999(20) ++++ mg/dL [facility] Spec Grav, UA 1.005 1 - 1.03 [facility] Urobilinogen, UA 0.2 0.2 - 12 mg/dL [facility] Healthcar e ALL CBC WITH AUTO DIFFon BASOPHILS ABSOLUTE AUTO 0 [facility] Basophils/100 WBC (Bld) 0.4 % 0.2 - 2.0 % [facility] Eosinophils/100 WBC (Bld) 1.7 % 0.9 - 7.0 % [facility] Erythrocyte distribution width (RBC) [Ratio] 12.3 % 11.0 - 15.0 % [facility] Hematocrit (Bld) [Volume fraction] 42.5 % 36.0 - 48.0 % [facility] Hemoglobin (Bld) [Mass/Vol] 14.7 g/dL 12.0 - 16.0 g/dL [facility] [facility] IMMATURE GRANULOCYTES ABS AUTO 0.02 [facility] Immature granulocytes/100 WBC (Bld) 0.2 % 0.0 - 0.5 % [facility] Interpretation and review of laboratory results Abnormal [facility] LYMPHOCYTES ABSOLUTE AUTO 1.4 [facility] Lymphocytes/100 WBC (Bld) 15.4 % Low 20.5 - 60.0 % [facility] MCH (RBC) [Entitic mass] 31.6 pg 26.7 - 34.[address] [facility] MCHC (RBC) [Mass/Vol] 34.6 g/dL 29.9 - 35.2 g/dL [facility] MCV (RBC) [Entitic vol] 91.4 fL 81.0 - 99.[address] [facility] MONOCYTES ABSOLUTE AUTO 0.5 [facility] Monocytes/100 WBC (Bld) 5.4 % 1.7 - 12.0 % [facility] NEUTROPHILS ABSOLUTE AUTO [address] [facility] Neutrophils/100 WBC (Bld) 76.9 % High 43.0 - 75.0 % [facility] Platelet mean volume (Bld) [Entitic vol] 10.1 fL 9.5 - 13.[address] [facility].2 [facility] PLT 216 [facility] RBC 4.65 [facility] TB WBC 9.2 [facility] CL[facility] US OB TRANSVAGINALon 025 US [...] II, MD, PHD at 14-Dec-2024 08:35:59 PM [facility] Normal Not Available Comment on above: Order Comment: US OB TRANSVAGINAL No LMP recorded. TBH PREG QUANT HCGon 025 HCG QUANTITATIVE 80955 mIU/[facility] Comment on above: 5-50 0.2-1 WEEK 50-500 1-2 WEEKS 100-5,000 2-3 WEEKS 500-10,000 3-4 WEEKS 1,000-50,000 4-5 WEEKS 10,000-100,000 5-6 WEEKS 15,000-200,000 6-8 WEEKS 10,000-100,000 2-3 MONTHS CLINIS[facility] TBH PREG QUANT HCGon 025 HCG QUANTITATIVE 6254 mIU/mL [facility] ltare Comment on above: 5-50 0.2-1 WEEK 50-500 1-2 WEEKS 100-5,000 2-3 WEEKS 500-10,000 3-4 WEEKS 1,000-50,000 4-5 WEEKS 10,000-100,000 5-6 WEEKS 15,000-200,000 6-8 WEEKS 10,000-100,000 2-[facility] [place] [facility] PREG QUANT HCGon 024 HCG QUANTITATIVE 6 [facility]IU/[facility] Comment on above: 5-50 0.2-1 WEEK 50-500 1-2 WEEKS 100-5,000 2-3 WEEKS 500-10,000 3-4 WEEKS 1,000-50,000 4-5 WEEKS 10,000-100,000 5-6 WEEKS 15,000-200,000 6-8 WEEKS 10,000-100,000 2-[address] [facility] [employer] [facility] ALL CBC WITH AUTO DIFFon BASOPHILS ABSOLUTE AUTO 0 [facility] Basophils/100 WBC (Bld) 0.5 % 0.2 - 2.0 % [facility] Eosinophils/100 WBC (Bld) 6.2 % 0.9 - 7.0 % [facility] Erythrocyte distribution width (RBC) [Ratio] 11.9 % 11.0 - 15.0 % [facility] Hematocrit (Bld) [Volume fraction] 43.8 % 36.0 - 48.0 % [facility] Hemoglobin (Bld) [Mass/Vol] 14.8 g/dL 12.0 - 16.0 g/dL [facility] IMMATURE GRANULOCYTES ABS AUTO 0.02 [facility] Immature granulocytes/100 WBC (Bld) 0.2 % 0.0 - 0.5 % [facility] LYMPHOCYTES ABSOLUTE AUTO 2 [facility] Lymphocytes/100 WBC (Bld) 22.1 % 20.5 - 60.0 % [facility] MCH (RBC) [Entitic mass] 31.7 pg 26.7 - 34.[address] [facility] MCHC (RBC) [Mass/Vol] 33.8 g/dL 29.9 - 35.2 g/dL [facility] MCV (RBC) [Entitic vol] 93.8 fL 81.0 - 99.[address] [facility] MONOCYTES ABSOLUTE AUTO 0.5 [facility] Monocytes/100 WBC (Bld) 5.3 % 1.7 - 12.0 % [facility] NEUTROPHILS ABSOLUTE AUTO 5.8 [facility] Neutrophils/100 WBC (Bld) 65.7 % 43.0 - 75.0 % [facility] Platelet mean volume (Bld) [Entitic vol] 10 fL 9.5 - 13.5 fL [facility] [employer] TBH EO # 0.6 [facility] PLT 236 [facility] RBC 4.67 [facility] WBC 8.9 [facility] [employer] [place] 08-10-2024 L Specimen: [id number] Received: 08/10/24 Status: CAROL Hoang Num: [id number] Spec Type: Surgical Subm Dr: Jose Rodriguez Tissues: A Products of Conception - Spontaneous or Missed (CONTENTS OF CONCEPT Procedures: HE/Oedll Flores/Agusto L4 Age/ Patient Sex Location Account Attending Physician Vimal Funes 24/ LABELL [id number] Jose Rodriguez SPEC NUM: [id number] RECD: 08/10/24 STATUS: CAROL HOANG NUM: [id number] CAROLIN: 08/10/24 [facility] DR: Jose Rodriguez ENTERED: 08/10/[address]: Rafia,Lab SPEC TYPE: Surgical DEPT: MONICA ALTMAN ENTERED BY: [id number] RECV BY: [id number] ORDERED: HE/2, Gross/Micro L4 ORDERED: HE/2, Gross/Micro [...] villi and decidua. No tissue is identified. Conveyor Feeder Offbearer sections of the chorionic villi are submitted in cassette A1 with sales representative door to door sections of the decidua is submitted in cassette A2. (2, ss, [id number]) CPT Codes 69975 Specimen: [id number] Received: 08/10/24 Status: CAROL Hoang Num: [id number] Spec Type: Surgical Subm Dr: Jose Rodriguez Tissues: A Products of Conception - Spontaneous or Missed (CONTENTS OF CONCEPT Procedures: HE/2, Gross/Micro L4 Patient: Vimal Funes [id number] (Continued) Signed (signature on file) Josh Aragon MD 08/13/24 1647 Normal [facility] TB PREG QUANT HCGon 024 HCG QUANTITATIVE 240 mIU/mL [facility] lthcare Comment on above: 5-50 0.2-1 WEEK 50-500 1-2 WEEKS 100-5,000 2-3 WEEKS 500-10,000 3-4 WEEKS 1,000-50,000 4-5 WEEKS 10,000-100,000 5-6 WEEKS 15,000-200,000 6-8 WEEKS 10,000-100,000 2-3 MONTHS [facility] ALL CBC WITH AUTO DIFFon BASOPHILS ABSOLUTE AUTO 0.1 [facility] Basophils/100 WBC (Bld) 0.5 % 0.2 - 2.0 % [facility] Eosinophils/100 WBC (Bld) 2.8 % 0.9 - 7.0 % [facility] Erythrocyte distribution width (RBC) [Ratio] 11.9 % 11.0 - 15.0 % [facility] Hematocrit (Bld) [Volume fraction] 44.7 % 36.0 - 48.0 % [facility] Hemoglobin (Bld) [Mass/Vol] 15.3 g/dL 12.0 - 16.0 g/dL [facility] IMMATURE GRANULOCYTES ABS AUTO 0.03 [facility] Immature granulocytes/100 WBC (Bld) 0.3 % 0.0 - 0.5 % [facility] Interpretation and review of laboratory results Abnormal [facility] LYMPHOCYTES ABSOLUTE AUTO 1.6 [facility] Lymphocytes/100 WBC (Bld) 14.9 % Low 20.5 - 60.0 % [facility] MCH (RBC) [Entitic mass] 31.7 pg 26.7 - 34.[address] [facility] MCHC (RBC) [Mass/Vol] 34.2 g/dL 29.9 - 35.2 g/dL [facility] MCV (RBC) [Entitic vol] 92.7 fL 81.0 - 99.[address] [facility] MONOCYTES ABSOLUTE AUTO 0.4 [facility] Monocytes/100 WBC (Bld) 3.7 % 1.7 - 12.0 % [facility] NEUTROPHILS ABSOLUTE AUTO 8.[address] [facility] Neutrophils/100 WBC (Bld) 77.8 % High 43.0 - 75.0 % [facility] Platelet mean volume (Bld) [Entitic vol] 10 fL 9.5 - 13.[address] [facility] TBH EO # 0.3 [facility] PLT 263 [facility] RBC 4.82 [facility] WBC 10.6 [facility] CLINISYNC No Panel Informationon 07-21 [facility] DRUG SCREEN RAPID (URINE )on 07-21-2024 AMPHETAMINE SCREEN URINE Negative NEGATIVE [facility] BARBITURATES SCREEN URINE Negative NEGATIVE [facility] BENZODIAZEPINES SCREEN URINE Negative NEGATIVE [facility] BUPRENORPHINE SCREEN URINE Negative NEGATIVE [facility] Comment on above: DRUG CLASS [...] 300 ng/mL CANNABINOID SCREEN URINE Negative NEGATIVE [facility] COCAINE SCREEN URINE Negative NEGATIVE [facility] METHADONE SCREEN URINE Negative NEGATIVE [facility] METHAMPHETAMINES SCREEN URINE Negative NEGATIVE [facility] OPIATE SCREEN URINE Negative NEGATIVE [facility] OXYCODONE SCREEN URINE Negative NEGATIVE NO [facility] PHENCYCLIDINE SCREEN URINE Negative NEGATIVE [facility] TRICYCLIC ANTIDEPRESSANT URINE Negative NEGATIVE [facility] REEFLEX IF POSITIVE CLINISYNC HCG ( test) Ql (U)o n 06-29-2024 Interpretation and review of laboratory results Abnormal [facility] Preg Test, Ur Positive [facility] Urinalysis macro (dipstick) panel (U)on 06-29-2024 Bilirubin, UA Negative Negative - 4(70) +++ mg/dL [facility] Blood, UA Negative Negative - 50 Jason/mcL [facility] Clarity, UA Clear [facility] re Color, UA Yellow [facility] Glucose, UA Negative Negative - 1999(110) ++++ mg/dL [facility] Interpretation and review of laboratory results Normal [facility] Ketones, UA Negative Negative - 160(16) ++++ mg/dL [facility] Leukocytes, UA Negative Negative - 500+++ Carlos/mcL [facility] Nitrite, UA Negative Negative - Positive [facility] pH, UA 7.0 5 - 9 [facility] Protein, UA Negative Negative - 1999(20) ++++ mg/dL [facility] Spec Grav, UA 1.015 1 - 1.03 [facility] Urobilinogen, UA 0.2 0.2 - 12 mg/dL [facility] XR hand RT min 3V*on 023 XR hand RT min 3V* [facility] [employer] Other XR hand RT min 3V* [facility] [employer] Other XR hand RT min 3V* 1111 [facility] [employer] Other XR hand RT min 3V* CASSIE Tinoco [address] [employer] Other XR hand RT min 3V* XRay Report [employer] Other XR hand RT min 3V* Signed [employer] Other XR hand RT min 3V* Patient: Vimal Funes MR#: [id number] [employer] Other XR hand RT min 3V* 18 [employer] Other XR hand RT min 3V* : 2000 Acct:[id number] [employer] Other XR hand RT min 3V* Age/Sex: 22 / F ADM Date: 12/26/22 [employer] Other XR hand RT min 3V* Loc: XDUCLY Room: Type: [facility] [employer] Other XR hand RT min 3V* Attending Dr: Jennifer GIL [employer] Other XR hand RT min 3V* Copies to: JEFFERY Rodriguez [employer] Other XR hand RT min 3V* Ordering Provider: JEFFERY Rodriguez [employer] Other XR hand RT min 3V* Date of Service: 12/26/22 [employer] Other XR hand RT min 3V* XR/XR hand RT min 3V*: RIGHT HAND INJURY [employer] Other XR hand RT min 3V* RIGHT HAND - 4 views [employer] Other XR hand RT min 3V* REASON FOR EXAM: Patient had right thumb hyperextended yesterday when trying to open the door. Now [employer] Other XR hand RT min 3V* with pain. [employer] Other XR hand RT min 3V* COMPARISON: None [employer] Other XR hand RT min 3V* FINDINGS: [employer] Other XR hand RT min 3V* No focal soft tissue abnormality. There appears to be avulsion fracture involving the base of the [employer] Other XR hand RT min 3V* distal phalanx of the thumb. Joint spaces appear maintained. No bony erosions. [employer] Other XR hand RT min 3V* XR/XR hand RT min 3V* [employer] Other XR hand RT min 3V* IMPRESSION: [employer] Other XR hand RT min 3V* AVULSION FRACTURE INVOLVING THE BASE OF THE DISTAL PHALANX OF THE THUMB. [employer] Other XR hand RT min 3V* Impression dictated by: Bulmaro Arias Jr., D.O.12/26/2022 1:44 PM [employer] Other XR hand RT min 3V* Dictation Location: [place] [address] [employer] Other XR hand RT min 3V* Transcribed By: LYNETTE 12/26/22 1344 [employer] Other XR hand RT min 3V* Dictated By: Bulmaro Arias Jr, DO 12/26/22 1343 [employer] Other XR hand RT min 3V* Signed By: [employer] Other XR hand RT min 3V* 12/26/22 1344 [employer] Other PAP ACOG PANEL 2: 22 to 30on 11-09-2022 . . Normal [facility] Comment on above: Performed By: #### [id number] ####[facility] [address] [place] [id number] Mancini Age Gdln ACOG Testing 21-29 Normal [facility] Comment on above: Performed By: #### [id number] ####[facility] [address] [place], [place] [address]DrGene Mancini DIAGNOSIS: Comment Normal [facility] Comment on above: Result Comment: NEGA TIVE FOR INTRAEPITHELIAL LESION OR MALIGNANCY. Performed By: #### [id number] ####[facility] [address] [place], [place] [address]Dr. Donis Mancini Methodology: Comment Normal [facility] Comment on above: Result Comment: This liquid based ThinPrep(R) pap test was screened with the use of an image guided system. Performed By: #### [id number] ####[facility] [address] [place], [place] [address]DrGene Mancini Note: Comment Normal [facility] Comment on above: Result Comment: The Pap smear is a screening test designed to aid in the detection of premalignant and malignant conditions of the uterine cervix. It is not a diagnostic procedure and should not be used as the sole means of detecting cervical cancer. Both false-positive and false-negative reports do occur. . Performed By: #### [id number] ####[facility] [address] [place], [place] [address]DrGene Mancini Performed by: Comment Normal [facility] Comment on above: Result Comment: Zuleima Lin, Manager Provider Relations (ASCP) Performed By: #### 4 [id number] ####[facility] [address] [place], [place] [address]Dr. Donis Mancini Reflex Criteria: Comment [facility] Comment on above: Result Comment: The HPV DNA reflex criteria were not met with this specimen result therefore, no HPV testing was performed. . Performed By: #### 4 [id number] ####[facility] [address] [place], [place] [address]DrGene Mancini Specimen adequacy: Comment Normal [facility] Comment on above: Result Comment: Sati sfactory for evaluation. Endocervical and/or squamous metaplastic cells (endocervical component) are present. Performed By: #### 4 [id number] ####[facility] [address] [place] [address]Dr. Donis Mancini Cytology Cervical or vaginal smear or scraping studyOrdered By: Jael Nix on 11-02-2022 [facility] CBC AUTO DIFFon 08-11-2022 BASO # 0.0 103/ul Normal 0.0-0.1 [facility] Comment on above: Performed By: #### C T/NGNA #### [facility] [address] [place] [address] Dr. Donis Mancini Basophils/100 WBC (Bld) 0.2 % Normal 0.2-2.0 [facility] Comment on above: Performed By: #### C T/NGNA #### [facility] [address] [place] [address] Dr. Donis Mancini EO # 0.1 103/ul Normal 0.0-0.7 [facility] Comment on above: Performed By: #### C T/NGNA #### [facility] [address] [place] [address] Dr. Donis Mancini Eosinophils/100 WBC (Bld) 0.5 % Critically low 0.9-7.0 [facility] Comment on above: Performed By: #### C T/NGNA #### [facility] [address] [place] [address] Dr. Donis Mancini Erythrocyte distribution width (RBC) [Ratio] 12.5 % Normal 11.0-15.0 [facility] Comment on above: Performed By: #### C T/NGNA #### [facility] [address] [place] [address] Dr. Donis Mancini Hematocrit (Bld) [Volume fraction] 35.9 % Critically low 36.0-48.0 [facility] Comment on above: Performed By: #### C T/NGNA #### [facility] [address] [place] [address] Dr. Donis Mancini Hemoglobin (Bld) [Mass/Vol] 12.4 g/dL Normal 12.0-16.0 [facility] Comment on above: Result Comment: michelet ent delivered Performed By: #### C T/NGNA #### [facility] [address] [place] [address] Dr. Donis Mancini IG # 0.10 10e3/ul Critically high 0.00-0.03 [facility] Comment on above: Performed By: #### C T/NGNA #### [facility] [address] [place] [address] Dr. Donis Mancini IG % 0.5 % Normal 0.0-0.5 [facility] Comment on above: Performed By: #### C T/NGNA #### [facility] [address] [place] [address] Dr. Donis Mancini LYMPH # 1.5 103/ul Normal 1.2-3.8 [facility] Comment on above: Performed By: #### C T/NGNA #### [facility] [address] [place] [address] Dr. Donis Mancini Lymphocytes/100 WBC (Bld) 7.6 % Critically low 20.5-60.0 [facility] Comment on above: Performed By: #### C T/NGNA #### [facility] [address] [place] [address] Dr. Donis Mancini MANUAL DIFF REQ NO Normal [facility] [place] Comment on above: Performed By: #### C T/NGNA #### [facility] [address] [place] [address] Dr. Donis Mancini MCH (RBC) [Entitic mass] 32.2 pg Normal 26.7-34.0 [facility] Comment on above: Performed By: #### C T/NGNA #### [facility] [address] [place] [address] Dr. Donis Mancini MCHC (RBC) [Mass/Vol] 34.5 g/dL Normal 29.9-35.2 [facility] Comment on above: Performed By: #### C T/NGNA #### [facility] [address] [address] [address] Donis Mancini MCV (RBC) [Entitic vol] 93.2 fL Normal 81.0-99.0 [facility] Comment on above: Performed By: #### C T/NGNA #### [facility] [address] [place] [address] Dr. Donis Mancini MONO # 1.3 103/ul Critically high 0.3-0.8 [facility] [place] Comment on above: Performed By: #### C T/NGNA #### [facility] [address] [place] [address] Dr. Donis Mancini Monocytes/100 WBC (Bld) 6.8 % Normal 1.7-12.0 [facility] Comment on above: Performed By: #### C T/NGNA #### [facility] [address] [place] [address] Dr. Donis Mancini NEUT # 16.2 103/ul Critically high 1.4-6.5 [facility] Comment on above: Performed By: #### C T/NGNA #### [facility] [address] [place] [address] Dr. Donis Mancini Neutrophils/100 WBC (Bld) 84.4 % Critically high 43.0-75.0 [facility] Comment on above: Performed By: #### C T/NGNA #### [facility] [address] [place] [address] Dr. Donis Mancini Platelet mean volume (Bld) [Entitic vol] 11.8 fL Normal 9.5-13.5 [facility] Comment on above: Performed By: #### C T/NGNA #### [facility] [address] [place] [address] Dr. Donis Mancini PLT 156 103/ul Normal 150-450 [facility] Comment on above: Performed By: #### C T/NGNA #### [facility] [address] [place] [address] Dr. Donis Mancini RBC 3.85 106/ul Critically low 4.20-5.40 [facility] [place] Comment on above: Performed By: #### C T/NGNA #### [facility] [address] [place], [place] [address] Dr. Donis Mancini WBC 19.2 103/ul Critically high 4.0-11.0 [facility] Comment on above: Performed By: #### C T/NGNA #### [facility] [address] [place], [place] [address] Dr. Donis Mancini Covid-19 PCR (CVDTB)on 07-27 SARS-CoV-2 (COVID-19) RNA INESSA+probe Ql (Unsp spec) Not detected Normal NOT DETECTED [facility] Comment on above: Result Comment: When [...] for this test is supported by the [place] of Health and Human Service's declaration that [...] be used). Performed By: #### C VDTBH ####[facility] [address] [place], [place] [address]QwGene Mancini DRUG SCREEN RAPID (URINE)on 08-10-2022 AMP Negative Normal NEGATIVE [facility] Comment on above: Performed By: #### D RUGRPD ####[facility] [address] [place], [place] [address]HyGene Mancini BAR Negative Normal NEGATIVE [facility] Comment on above: Performed By: #### D RUGRPD ####[facility] [address] [place], [place] [address]ZoGene Mancini BUP Negative Normal NEGATIVE [facility] Comment on above: Performed By: #### D RUGRPD ####[facility] [address] [place] [id number]. Donis Mancini BZO Negative Normal NEGATIVE [facility] Comment on above: Performed By: #### D RUGRPD ####[facility] [address] [place] [id number]. Donis Mancini ALEXA Negative Normal NEGATIVE [facility] Comment on above: Performed By: #### D RUGRPD ####[facility] [address] [place], [place] [address]Dr. Donis Mancini CUT-OFFS SEE BELOW Normal [facility] Comment on above: Result Comment: AMP (Amphetamine): 500ng/mL, BAR (Barbituates): 200 ng/mL, BZO (Benzodiazepines): 150 ng/mL, BUP (Buprenorphine): 10 ng/mL, ALEXA (Cocaine): 150 ng/mL, mAMP (Methamphetamine): 500 ng/mL, MTD (Methadone): 200 ng/mL, OPI (Opiates): 100 ng/mL, OXY (Oxycodone): 100 ng/mL, PCP (Phencyclidine): 25 ng/mL, PPX (Propoxyphene): 300 ng/mL, THC (Cannabinoids): 50 ng/mL, TCA (Trycyclic Antidepressants): 300 ng/mL Performed By: #### D RUGRPD ####[facility] [address] [place], [place] [address]Dr. Donis Mancini DRUG CUT HEADER DRUG CLASS TEST SYSTEM CUT-OFF CONCENTRATIONS ARE FOLLOWS: Normal [facility] Comment on above: Performed By: #### D RUGRPD ####[facility] [address] [place] [id number]. Donis Mancini mAMP Negative Normal NEGATIVE [facility] Comment on above: Performed By: #### D RUGRPD ####[facility] [address] [place] [address]Dr. Donis Mancini MTD Negative Normal NEGATIVE [facility] Comment on above: Performed By: #### D RUGRPD ####[facility] [address] [place], [place] [address]Dr. Donis Mancini OPI Negative Normal NEGATIVE [facility] Comment on above: Performed By: #### D RUGRPD ####[facility] [address] [place] [address]Dr. Donis Mancini OXY Negative Normal NEGATIVE [facility] Comment on above: Performed By: #### D RUGRPD ####[facility] [address] [place] [address]Dr. Donis Mancini PCP Negative Normal NEGATIVE [facility] Comment on above: Performed By: #### D RUGRPD ####[facility] [address] [place] [address]Dr. Donis Mancini PPX Negative Normal NEGATIVE [facility] Comment on above: Performed By: #### D RUGRPD ####[facility] [address] [place] [address]Dr. Donis Mancini TCA Negative Normal NEGATIVE [facility] Comment on above: Performed By: #### D RUGRPD ####[facility] [address] [place] [address]Dr. Donis Mancini THC Negative Normal NEGATIVE [facility] Comment on above: Performed By: #### D RUGRPD ####[facility] [address] [place], [place] [address]Dr. Donis Mancini TYPE AND SCREENon 08-10-2022 TYPE AND SCREEN Negative Normal [facility] [place] Comment on above: Performed By: #### T NS ####[facility] [address] [place], [place] [address]Dr. Donis Mancini US PREG BIOPHY W NON [...] by: ESTEFANY Leiva: 2022-08-10 07:18 Normal [facility] US PREG GROWTHon 08-10-2022 US PREG [...] ESTEFANY BENNETT Date: 2022-08-10 07:16 Normal [facility] CBC AUTO DIFFon 08-09-2022 BASO # 0.0 103/ul Normal 0.0-0.1 [facility] Comment on above: Performed By: #### C BC ####[facility] Xrhtalbk[address] [place], [place] [address]Dr. Donis Mancini Basophils/100 WBC (Bld) 0.2 % Normal 0.2-2.0 [facility] Comment on above: Performed By: #### C BC ####[facility] [address] [place] [address]Dr. Donis Mancini EO # 0.4 103/ul Normal 0.0-0.7 [facility] Comment on above: Performed By: #### C BC ####[facility] Crfvhdfqap[address] [place], [place] [address]Dr. Donis Mancini Eosinophils/100 WBC (Bld) 2.8 % Normal 0.9-7.0 [facility] Comment on above: Performed By: #### C BC ####[facility] Rwlxcnpwjb[address] [place] [id number]. Donis Mancini Erythrocyte distribution width (RBC) [Ratio] 12.2 % Normal 11.0-15.0 [facility] Comment on above: Performed By: #### C BC ####[facility] [address] [place] [address]Dr. Donis Mancini Hematocrit (Bld) [Volume fraction] 41.4 % Normal 36.0-48.0 [facility] Comment on above: Performed By: #### C BC ####[facility] Dhouxdugfz[address] [place], [place] [address]Dr. Donis Mancini Hemoglobin (Bld) [Mass/Vol] 14.4 g/dL Normal 12.0-16.0 [facility] Comment on above: Performed By: #### C BC ####[facility] Sswvfwbnpj[address] [place], [place] [address]Dr. Donis Mancini IG # 0.06 10e3/ul Critically high 0.00-0.03 [facility] Comment on above: Performed By: #### C BC ####[facility] Btauyvamuy[address] [place], [place] [address]Dr. Donis Mancini IG % 0.5 % Normal 0.0-0.5 [facility] Comment on above: Performed By: #### C BC ####[facility] Sicxhsxnfa[address] [place], [place] [address]Dr. Donis Mancini LYMPH # 1.5 103/ul Normal 1.2-3.8 [facility] Comment on above: Performed By: #### C BC ####[facility] Wvodayltph[address] [place], [place] [address]Dr. Donis Mancini Lymphocytes/100 WBC (Bld) 11.7 % Critically low 20.5-60.0 [facility] Comment on above: Performed By: #### C BC ####[facility] Hexqffksor[address] [place], [place] [address]Dr. Donis Mancini MANUAL DIFF REQ NO Normal [facility] Comment on above: Performed By: #### C BC ####[facility] Fexlzsvjpx40[address] [place] [id number]. Donis Mancini MCH (RBC) [Entitic mass] 31.9 pg Normal 26.7-34.0 [facility] Comment on above: Performed By: #### C BC ####[facility] Cyvrgcmvft4[address] [place] [id number]. Donis Mancini MCHC (RBC) [Mass/Vol] 34.8 g/dL Normal 29.9-35.2 [facility] Comment on above: Performed By: #### C BC ####[facility] Oitqtheuah4[address] [place] [id number]. Donis Live MCV (RBC) [Entitic vol] 91.8 fL Normal 81.0-99.0 [facility] Comment on above: Performed By: #### C BC ####[facility] Yhfbwfxrez[address] [place], [place] [address]Dr. Donis Mancini MONO # 1.0 103/ul Critically high 0.3-0.8 [facility] [place] Comment on above: Performed By: #### C BC ####[facility] Iqkrfvcgwm08[address] [place] [address]Dr. Donis Mancini Monocytes/100 WBC (Bld) 7.5 % Normal 1.7-12.0 [facility] Comment on above: Performed By: #### C BC ####[facility] Xstikcdpgo[address] [place] [address]Dr. Laceyjavi Mancini NEUT # 10.0 103/ul Critically high 1.4-6.5 [facility] Comment on above: Performed By: #### C BC ####[facility] Wxhziiqikz4855 [place] [id number]. Donis Mancini Neutrophils/100 WBC (Bld) 77.3 % Critically high 43.0-75.0 [facility] Comment on above: Performed By: #### C BC ####[facility] [address] [place], [place] [id number]. Donis Mancini Platelet mean volume (Bld) [Entitic vol] 11.6 fL Normal 9.5-13.5 [facility] Comment on above: Performed By: #### C BC ####[facility] Ekpzfvqqwb0858 [place], [place] [address]Kv. Donis Mancini PLT 184 103/ul Normal 150-450 [facility] Comment on above: Performed By: #### C BC ####[facility] Qmlaaawpww5761 [place], [place] [address]Ta. Donis Mancini RBC 4.51 106/ul Normal 4.20-5.40 [facility] Comment on above: Performed By: #### C BC ####[facility] Owkxzyydoa5086 [place], [place] [address]Cd. Donis Mancini WBC 12.9 103/ul Critically high 4.0-11.0 [facility] Comment on above: Performed By: #### C BC ####[facility] Dcyhmmffiq5066 [place], [place] [address]Bd. Donis Mancini LDHon 08-09-2022 LDH 167 U/L Normal 81-234 [facility] Comment on above: Performed By: #### C T/NGNA #### [facility] [address] [address] [address] Donis Mancini PROF 14(COMP METB)on 022 Albumin [Mass/Vol] 2.7 g/dL Critically low 3.4-5.0 [facility] Comment on above: Performed By: #### C T/NGNA #### [facility] [address] [address] [address] Donis Mancini Albumin/Globulin [Mass ratio] 0.6 {ratio} Normal [facility] Comment on above: Performed By: #### C T/NGNA #### [facility] [address] [address] [address] Donis Mancini ALP [Catalytic activity/Vol] 176 U/L Critically high 46-116 [facility] Comment on above: Performed By: #### C T/NGNA #### [facility] [address] [address] [address] Donis Mancini ALT [Catalytic activity/Vol] 20 U/L Normal 14-59 [facility] Comment on above: Performed By: #### C T/NGNA #### [facility] [address] [address] [address] Donis Mancini Anion gap [Moles/Vol] 12.9 mmol/L Normal [facility] Comment on above: Performed By: #### C T/NGNA #### [facility] [address] [address] [address] Donis Mancini AST [Catalytic activity/Vol] 20 U/L Normal 15-37 [facility] Comment on above: Performed By: #### C T/NGNA #### [facility] [address] [address] [address] Donis Mancini Bilirubin [Mass/Vol] 0.1 mg/dL Critically low 0.2-1.0 [facility] Comment on above: Performed By: #### C T/NGNA #### [facility] [address] [address] [address] Donis Mancini Calcium [Mass/Vol] 9.1 mg/dL Normal 8.5-10.1 [facility] Comment on above: Performed By: #### C T/NGNA #### [facility] [address] [address] [address] Donis Mancini Chloride [Moles/Vol] 104 mmol/L Normal 98-107 [facility] Comment on above: Performed By: #### C T/NGNA #### [facility] [address] [address] [address] Donis Mancini CO2 [Moles/Vol] 22.9 mmol/L Normal 21.0-32.0 [facility] Comment on above: Performed By: #### C T/NGNA #### [facility] [address] [address] [address] Donis Mancini Creatinine [Mass/Vol] 0.43 mg/dL Critically low 0.55-1.02 [facility] Comment on above: Performed By: #### C T/NGNA #### [facility] [address] [address] [address] Donis Mancini EGFR-AF SWAZI >60 Normal >=60 [facility] Comment on above: Performed By: #### C T/NGNA #### [facility] [address] [address] [address] Donis Mancini EGFR-NON AF SWAZI >60 Normal >=60 [facility] Comment on above: Performed By: #### C T/NGNA #### [facility] [address] [address] [address] Donis Mancini Globulin (S) [Mass/Vol] 4.2 g/dL Normal [facility] Comment on above: Performed By: #### C T/NGNA #### [facility] [address] [address] [address] Donis Mancini Glucose [Mass/Vol] 95 mg/dL Normal 74-106 [facility] Comment on above: Performed By: #### C T/NGNA #### [facility] [address] [address] [address] Donis Mancini Potassium [Moles/Vol] 3.8 mmol/L Normal 3.5-5.1 [facility] Comment on above: Performed By: #### C T/NGNA #### [facility] [address] [address] [address] Donis Mancini Protein [Mass/Vol] 6.9 g/dL Normal 6.4-8.2 [facility] Comment on above: Performed By: #### C T/NGNA #### [facility] [address] [address] [address] Donis Mancini Sodium [Moles/Vol] 136 mmol/L Normal 136-145 [facility] Comment on above: Performed By: #### C T/NGNA #### [facility] [address] [address] [address] Donis Mancini Urea nitrogen [Mass/Vol] 10.0 mg/dL Normal 7.0-18.0 [facility] Comment on above: Performed By: #### C T/NGNA #### [facility] [address] [address] [address] Donis Mancini Urea nitrogen/Creatinine [Mass ratio] 23.3 mg/mg Normal [facility] Comment on above: Performed By: #### C T/NGNA #### [facility] [address] [place] [address] Dr. Donis Mancini URIC ACID SERUMon 08-09-2022 Urate [Mass/Vol] 3.6 mg/dL Normal 2.6-6.0 [facility] Comment on above: Performed By: #### C T/NGNA #### [facility] [address] [place] [address] Dr. Donis Mancini CBC AUTO DIFFon 08-07-2022 BASO # 0.0 103/ul Normal 0.0-0.1 [facility] Comment on above: Performed By: #### U AMIC #### [facility] [address] [place] [address] Dr. Donis Mancini Basophils/100 WBC (Bld) 0.2 % Normal 0.2-2.0 [facility] Comment on above: Performed By: #### U AMIC #### [facility] [address] [place] [address] Dr. Donis Mancini EO # 0.2 103/ul Normal 0.0-0.7 [facility] Comment on above: Performed By: #### U AMIC #### [facility] [address] [place] [address] Dr. Donis Mancini Eosinophils/100 WBC (Bld) 1.8 % Normal 0.9-7.0 [facility] Comment on above: Performed By: #### U AMIC #### [facility] [address] [place] [address] Dr. Donis Mancini Erythrocyte distribution width (RBC) [Ratio] 12.3 % Normal 11.0-15.0 [facility] Comment on above: Performed By: #### U AMIC #### [facility] [address] [place] [address] Dr. Donis Mancini Hematocrit (Bld) [Volume fraction] 45.7 % Normal 36.0-48.0 [facility] Comment on above: Performed By: #### U AMIC #### [facility] [address] [address] [address] Donis Mancini Hemoglobin (Bld) [Mass/Vol] 16.0 g/dL Normal 12.0-16.0 [facility] Comment on above: Performed By: #### U AMIC #### [facility] [address] [address] [address] Donis Mancini IG # 0.07 10e3/ul Critically high 0.00-0.03 [facility] Comment on above: Performed By: #### U AMIC #### [facility] [address] [address] [address] Donis Mancini IG % 0.5 % Normal 0.0-0.5 [facility] Comment on above: Performed By: #### U AMIC #### [facility] [address] [address] [address] Donis Mancini LYMPH # 1.5 103/ul Normal 1.2-3.8 [facility] Comment on above: Performed By: #### U AMIC #### [facility] [address] [address] [address] Donis Mancini Lymphocytes/100 WBC (Bld) 11.2 % Critically low 20.5-60.0 [facility] Comment on above: Performed By: #### U AMIC #### [facility] [address] [address] [address] Donis Mancini MANUAL DIFF REQ NO Normal [facility] [place] Comment on above: Performed By: #### U AMIC #### [facility] [address] [address] [address] Donis Mancini MCH (RBC) [Entitic mass] 32.0 pg Normal 26.7-34.0 [facility] Comment on above: Performed By: #### U AMIC #### [facility] [address] [address] [address] Donis Mancini MCHC (RBC) [Mass/Vol] 35.0 g/dL Normal 29.9-35.2 [facility] Comment on above: Performed By: #### U AMIC #### [facility] [address] [address] [address] Donis Mancini MCV (RBC) [Entitic vol] 91.4 fL Normal 81.0-99.0 [facility] Comment on above: Performed By: #### U AMIC #### [facility] [address] [address] [address] Donis Mancini MONO # 0.9 103/ul Critically high 0.3-0.8 [facility] [place] Comment on above: Performed By: #### U AMIC #### [facility] [address] [address] [address] Donis Mancini Monocytes/100 WBC (Bld) 6.3 % Normal 1.7-12.0 [facility] Comment on above: Performed By: #### U AMIC #### [facility] [address] [place] [address] Dr. Donis Mancini NEUT # 10.9 103/ul Critically high 1.4-6.5 [facility] Comment on above: Performed By: #### U AMIC #### [facility] [address] [address] [address] Donis Mancini Neutrophils/100 WBC (Bld) 80.0 % Critically high 43.0-75.0 [facility] Comment on above: Performed By: #### U AMIC #### [facility] [address] [place] [address] Dr. Donis Mancini Platelet mean volume (Bld) [Entitic vol] 11.5 fL Normal 9.5-13.5 [facility] Comment on above: Performed By: #### U AMIC #### [facility] [address] [address] [address] Donis Mancini PLT 182 103/ul Normal 150-450 [facility] Comment on above: Performed By: #### U AMIC #### [facility] [address] [address] [address] Donis Mancini RBC 5.00 106/ul Normal 4.20-5.40 [facility] Comment on above: Performed By: #### U AMIC #### [facility] [address] [address] [address] Donis Mancini WBC 13.6 103/ul Critically high 4.0-11.0 [facility] Comment on above: Performed By: #### U AMIC #### [facility] [address] [address] [address] Donis Mancini LDHon 08-07-2022 LDH 171 U/L Normal 81-234 [facility] Comment on above: Performed By: #### C MP, URIC, LDH ####[facility] [address] [place] [address]Dr. Donis Mancini PROF 14(COMP METB)on 022 Albumin [Mass/Vol] 2.9 g/dL Critically low 3.4-5.0 [facility] Comment on above: Performed By: #### C MP, URIC, LDH ####[facility] [address] [place] [address]Dr. Donis Mancini Albumin/Globulin [Mass ratio] 0.6 {ratio} Normal [facility] Comment on above: Performed By: #### C MP, URIC, LDH ####[facility] [address] [place] [address]Dr. Donis Mancini ALP [Catalytic activity/Vol] 192 U/L Critically high 46-116 [facility] Comment on above: Performed By: #### C MP, URIC, LDH ####[facility] [address] [place] [address]Dr. Donis Mancini ALT [Catalytic activity/Vol] 23 U/L Normal 14-59 [facility] Comment on above: Performed By: #### C MP, URIC, LDH ####[facility] [address] [place] [address]Dr. Donis Mancini Anion gap [Moles/Vol] 14.4 mmol/L Normal [facility] Comment on above: Performed By: #### C MP, URIC, LDH ####[facility] [address] [place] [address]Dr. Donis Mancini AST [Catalytic activity/Vol] 23 U/L Normal 15-37 [facility] Comment on above: Performed By: #### C MP, URIC, LDH ####[facility] [address] [place] [address]Dr. Donis Mancini Bilirubin [Mass/Vol] 0.2 mg/dL Normal 0.2-1.0 [facility] Comment on above: Performed By: #### C MP, URIC, LDH ####[facility] [address] [place] [address]Dr. Donis Mancini Calcium [Mass/Vol] 9.4 mg/dL Normal 8.5-10.1 [facility] Comment on above: Performed By: #### C MP, URIC, LDH ####[facility] [address] [place], [place] [address]Dr. Donis Mancini Chloride [Moles/Vol] 104 mmol/L Normal 98-107 [facility] Comment on above: Performed By: #### C MP, URIC, LDH ####[facility] [address] [place], [place] [address]Dr. Donis Mancini CO2 [Moles/Vol] 21.7 mmol/L Normal 21.0-32.0 [facility] Comment on above: Performed By: #### C MP, URIC, LDH ####[facility] [address]sc[address] [place], [place] [address]Dr. Donis Mancini Creatinine [Mass/Vol] 0.46 mg/dL Critically low 0.55-1.02 [facility] Comment on above: Performed By: #### C MP, URIC, LDH ####[facility] [address]ks[address] [place], [place] [address]Dr. Donis Mancini EGFR-AF SWAZI >60 Normal >=60 [facility] Comment on above: Performed By: #### C MP, URIC, LDH ####[facility] [address] [place], [place] [address]Dr. Donis Mancini EGFR-NON AF SWAZI >60 Normal >=60 [facility] Comment on above: Performed By: #### C MP, URIC, LDH ####[facility] [address]xx[address]nga[address] [place], [place] [address]Dr. Donis Mancini Globulin (S) [Mass/Vol] 4.6 g/dL Normal [facility] Comment on above: Performed By: #### C MP, URIC, LDH ####[facility] [address] [place] [address]Dr. Donis Mancini Glucose [Mass/Vol] 89 mg/dL Normal 74-106 [facility] Comment on above: Performed By: #### C MP, URIC, LDH ####[facility] [address] [place] [address]Dr. Donis Mancini Potassium [Moles/Vol] 4.1 mmol/L Normal 3.5-5.1 [facility] Comment on above: Performed By: #### C MP, URIC, LDH ####[facility] [address]ib[address]dfq[address] [place] [address]Dr. Donis Mancini Protein [Mass/Vol] 7.5 g/dL Normal 6.4-8.2 [facility] Comment on above: Performed By: #### C MP, URIC, LDH ####[facility] [address] [place], [place] [address]Dr. Donis Mancini Sodium [Moles/Vol] 136 mmol/L Normal 136-145 [facility] Comment on above: Performed By: #### C MP, URIC, LDH ####[facility] [address] [place] [address]Dr. Donis Mancini Urea nitrogen [Mass/Vol] 8.0 mg/dL Normal 7.0-18.0 [facility] Comment on above: Performed By: #### C MP, URIC, LDH ####[facility] [address] [place] [address]Dr. Donis Mancini Urea nitrogen/Creatinine [Mass ratio] 17.4 mg/mg Normal [facility] Comment on above: Performed By: #### C MP, URIC, LDH ####[facility] [address] [place] [address]Dr. Donis Mancini PROTIMEon 08-07-2022 INR Coag (PPP) [Relative time] {INR} Normal [facility] Comment on above: Performed By: #### U AMIC #### [facility] [address] [place] [address] Dr. Donis Mancini INR GUIDELINES SEE BELOW Normal [facility] Comment on above: Result Comment: NICCI RED INR: 2.0 - 3.0 CONDITIONS NOT LISTED BELOW 2.5 - 3.5 FOR PROSTHETIC HEART VALVE REPLACEMENT 2.5 - 3.5 RECURRENT THROMBOSIS Performed By: #### U AMIC #### [facility] [address] [place] [address] Dr. Donis Mancini PT Coag (PPP) [Time] 9.8 s Normal 9.0-11.6 [facility] Comment on above: Performed By: #### U AMIC #### [facility] [address] [place] [address] Dr. Donis Mancini PTTon 08-07-2022 aPTT Coag (Bld) [Time] 28.5 s Normal 22.3-36.2 [facility] Comment on above: Performed By: #### U AMIC #### [facility] [address] [place] [address] Dr. Donis Mancini UA (CLEAN/CATCH) [employer]/MICRO I F IND.on 08-07-2022 Bilirubin Ql (U) Negative Normal NEGATIVE [facility] Comment on above: Performed By: #### U AMIC #### [facility] [address] [place] [address] Dr. Donis Mancini Clarity (U) CLEAR Normal CLEAR [facility] Comment on above: Performed By: #### U AMIC #### [facility] [address] [place] [address] Dr. Donis Mancini Color (U) LT. YELLOW Normal YELLOW [facility] Comment on above: Performed By: #### U AMIC #### [facility] [address] [place] [address] Dr. Donis Mancini Glucose Ql (U) Negative Normal NEGATIVE [facility] Comment on above: Performed By: #### U AMIC #### [facility] [address] [place] [address] Dr. Donis Mancini Hemoglobin Ql (U) Negative Normal NEGATIVE [facility] Comment on above: Performed By: #### U AMIC #### [facility] [address] [address] [address] Donis Mancini Ketones Ql (U) Negative Normal NEGATIVE [facility] Comment on above: Performed By: #### U AMIC #### [facility] [address] [address] [address] Donis Mancini LEUKOCYTES Negative Normal NEGATIVE [facility] Comment on above: Performed By: #### U AMIC #### [facility] [address] [address] [address] Donis Mancini Nitrite Ql (U) Negative Normal NEGATIVE [facility] Comment on above: Performed By: #### U AMIC #### [facility] [address] [place] [address] Dr. Donis Mancini pH (U) 7.0 [pH] Normal 5-9 [facility] Comment on above: Performed By: #### U AMIC #### [facility] [address] [place] [address] Dr. Donis Mancini SPEC GRAVITY <=1.005 Abnormal 1.005-<=1.02 5 [facility] Comment on above: Performed By: #### U AMIC #### [facility] [address] [place] [address] Dr. Donis Mancini UA PROTEIN Negative Normal NEGATIVE/ TRACE [facility] Comment on above: Performed By: #### U AMIC #### [facility] [address] [address] [address] Donis Mancini UR MICRO IND NOT INDICATED Normal [facility] Comment on above: Performed By: #### U AMIC #### [facility] [address] [place] [address] Dr. Donis Mancini Urobilinogen Qn (U) 0.2 {Sarah'U}/dL Normal 0.2 - 1. 0 [facility] Comment on above: Performed By: #### U AMIC #### [facility] [address] [place] [address] Dr. Donis Mancini URIC ACID SERUMon 08-07-2022 Urate [Mass/Vol] 3.8 mg/dL Normal 2.6-6.0 [facility] Comment on above: Performed By: #### C MP, URIC, LDH ####[facility] Egjdyjnwsw1607 [place] [address]Dr. Donis Mancini URINE T PROTEIN CREAT RATIOo n 08-07-2022 UR TOTAL PROTEIN <6.0 Normal <=12.0 [facility] Comment on above: Performed By: #### C T/NGNA #### [facility] [address] [address] [address] Donis Mancini URINE CREAT 13.45 mg/dL Critically low 20.00-300.00 [facility] Comment on above: Performed By: #### C T/NGNA #### [facility] [address] [place] [address] Dr. Donis Mancini US PREG BIOPHY W [...] COCO STERN Date: 2022-08-01 08:31 Normal [facility] CHLAMYDIA/GONOCOCCUS INESSA (SW AB/URINE/PAPon 07-31-2022 Chlamydia trachomatis, INESSA Negative Normal Negative [facility] Comment on above: Performed By: #### C T/NGNA #### [facility] [address] [address] [address] Donis Mancini Neisseria gonorrhoeae, INESSA Negative Normal Negative [facility] Comment on above: Performed By: #### C T/NGNA #### [facility] [address] [address] [address] Donis Mancini VAGINITIS/VAGINOSIS DNA PROB Domenic 07-31-2022 Simeon species Negative Normal Negative The [facility] [place] Comment on above: Performed By: #### V AGINT ####[facility] [address] [place] [address]Dr. Donis Mancini Gardnerella vaginalis Negative Normal Negative [facility] Comment on above: Performed By: #### V AGINT ####[facility] Ze[address]gs[address] [place] [address]Dr. Donis Mancini Trichomonas vaginalis Negative Normal Negative [facility] Comment on above: Performed By: #### V AGINT ####[facility] Ol[address] [place] [address]Dr. Donis Mancini GROUP B STREP CULTUREon S. agalactiae Ag Ql (Unsp spec) Culture Observations: NEGATIVE FOR GROUP B STREPTOCOCCUS. Normal The [facility] Comment on above: Performed By: #### G BSCX #### [facility] [address] [address] [address] Donis Mancini US PREG BIOPHY W [...] COCO STERN Date: 2022-07-25 09:41 Normal [facility] US PREG GROWTHon 07-11-2022 US PREG [...] with growth detailed above. Electronically authenticated by: ESTEFNAY BENNETT Date: 2022-07-11 19:28 Normal [facility]on 06-26 SARS-CoV-2 (COVID-19) RNA INESSA+probe Ql (Unsp spec) Not detected Normal NOT DETECTED [facility] Comment on above: Result Comment: When [...] for this test is supported by the [place] of Health and Human Service's declaration that [...] used). Performed By: #### C T/NGNA #### [facility] [address] [address] [address] Donis Mancini GTT 3 HR PREGon 06-03-2022 Glucose [Mass/Vol] 94 mg/dL Normal 74-106 [facility] Comment on above: Performed By: #### U AMIC #### [facility] [address] [place], [place] [address] Dr. Donis Mancini Glucose [Mass/Vol] 147 mg/dL Normal [facility] Comment on above: Performed By: #### U AMIC #### [facility] [address] [address] [address] Donis Mancini Glucose [Mass/Vol] 159 mg/dL Normal [facility] Comment on above: Performed By: #### U AMIC #### [facility] [address] [address] [address] Donis Mancini Glucose [Mass/Vol] 151 mg/dL Normal [facility] Comment on above: Performed By: #### U AMIC #### [facility] [address] [place] [address] Dr. Donis Mancini GLUCOSE - 1HRon 05-21-2022 Glucose [Mass/Vol] 141 mg/dL Critically high 74-106 T [facility] Comment on above: Performed By: #### U AMIC #### [facility] [address] [place] [address] Dr. Donis Mancini HEMOGRAM AND PLATELon 2021 Hematocrit (Bld) [Volume fraction] 39.1 % Normal 36.0-48.0 [facility] Comment on above: Performed By: #### U AMIC #### [facility] [address] [place] [address] Dr. Donis Mancini Hemoglobin (Bld) [Mass/Vol] 13.1 g/dL Normal 12.0-16.0 [facility] Comment on above: Performed By: #### U AMIC #### [facility] [address] [place] [address] Dr. Donis Mancini MCH (RBC) [Entitic mass] 32.3 pg Normal 26.7-34.0 [facility] Comment on above: Performed By: #### U AMIC #### [facility] [address] [place] [address] Dr. Donis Mancini MCHC (RBC) [Mass/Vol] 33.5 g/dL Normal 29.9-35.2 [facility] Comment on above: Performed By: #### U AMIC #### [facility] [address] [place] [address] Dr. Donis Mancini MCV (RBC) [Entitic vol] 96.5 fL Normal 81.0-99.0 [facility] Comment on above: Performed By: #### U AMIC #### [facility] [address] [place] [address] Dr. Donis Mancini PLT 220 103/ul Normal 150-450 [facility] Comment on above: Performed By: #### U AMIC #### [facility] [address] [address] [address] Donis Mancini RBC 4.05 106/ul Critically low 4.20-5.40 [facility] Comment on above: Performed By: #### U AMIC #### [facility] [address] [place] [address] Dr. Donis Mancini WBC 12.8 103/ul Critically high 4.0-11.0 The [facility] Comment on above: Performed By: #### U AMIC #### [facility] [address] [place] [address] Dr. Donis Mancini US PREG BIOPHYSICAL NO [...] ESTEFANY BENNETT Date: 2022-05-11 06:25 Normal [facility] CULTURE URINEon 05-10-2022 CULTURE URINE Culture Observations: MODERATE GROWTH OF MIXED GENITAL RAMBO. NO POTENTIAL PATHOGENS SEEN. Normal [facility] Comment on above: Performed By: #### U RCX #### [facility] [address] [place] [address] Dr. Donis Mancini UA RANDOM W/MICROSCOPICon BACTERIA LARGE Abnormal NONE SEEN The [facility] Comment on above: Performed By: #### U AMIC ####[facility] Mgkfkiuauc8[address] [place] [address]Dr. Donis Mancini Bilirubin Ql (U) Negative Normal NEGATIVE The [facility] Comment on above: Performed By: #### U AMIC ####[facility] Ekpwhetoua475[address] [place] [address]Dr. Donis Mancini CAST NONE SEEN Normal NONE SEEN [facility] Comment on above: Performed By: #### U AMIC ####[facility] Danihcefys[address] [place] [address]Dr. Donis Mancini Clarity (U) CLEAR Normal CLEAR [facility] Comment on above: Performed By: #### U AMIC ####[facility] [address] [place], [place] [address]Dr. Donis Mancini Color (U) YELLOW Normal YELLOW [facility] Comment on above: Performed By: #### U AMIC ####[facility] Korbdhyydu5551 [place] [address]Dr. Donis Mancini Crystals LM Nom (Urine sed) NONE SEEN Normal NONE SEEN [facility] Comment on above: Performed By: #### U AMIC ####[facility] Kht[address] [place], [place] [address]Dr. Donis Mancini Epithelial cells LM Ql (Urine sed) MODERATE Abnormal NONE SEEN /RARE [facility] Comment on above: Performed By: #### U AMIC ####[facility] Avxfpgdzhs3[address] [place] [address]Dr. Donis Mancini Glucose Ql (U) 250 mg/dl Abnormal NEGATIVE [facility] Comment on above: Performed By: #### U AMIC ####[facility] Ijvsvegxqn7562 [place] [address]Dr. Donis Mancini Hemoglobin Ql (U) TRACE-INTACT Abnormal NEGATIVE The [facility] Comment on above: Performed By: #### U AMIC ####[facility] Ptulsegmeu6313 [place] [address]Dr. Donis Mancini Ketones Ql (U) Negative Normal NEGATIVE [facility] Comment on above: Performed By: #### U AMIC ####[facility] Xwvrihwzxk5963 [place] [address]Dr. Donis Mancini LEUKOCYTES LARGE Abnormal NEGATIVE The [facility] Comment on above: Performed By: #### U AMIC ####[facility] Psfovxbsag7836 [place] [address]Dr. Donis Mancini MUCOUS NONE SEEN Normal NONE SEEN The [facility] Comment on above: Performed By: #### U AMIC ####[facility] [address]mpq[address] [place], [place] [address]Dr. Donis Live Nitrite Ql (U) Negative Normal NEGATIVE [facility] Comment on above: Performed By: #### U AMIC ####[facility] Ermyjl[address]kn[address] [place], [place] [address]Dr. Laceyjavi Mancini pH (U) 6.0 [pH] Normal 5-9 [facility] Comment on above: Performed By: #### U AMIC ####[facility] [address]yxl[address] [place], [place] [address]Dr. Laceyjavi Mancini RBC 2-5 Abnormal 0-2 [facility] Comment on above: Performed By: #### U AMIC ####[facility] [address]vowarr[address] [place], [place] [address]Dr. Laceyjavi Mancini SPEC GRAVITY <=1.005 Abnormal 1.005-<=1.02 5 [facility] Comment on above: Performed By: #### U AMIC ####[facility] Ulaeyj[address]rf[address] [place], [place] [address]Dr. Laceyjavi Mancini UA PROTEIN Negative Normal NEGATIVE/ TRACE The [facility] Comment on above: Performed By: #### U AMIC ####[facility] Qttiknctwz[address] [place], [place] [address]Dr. Laceyjavi Mancini Urobilinogen Qn (U) 0.2 {Sarah'U}/dL Normal 0.2 - 1. 0 [facility] Comment on above: Performed By: #### U AMIC ####[facility] Xsfbenkyte[address] [place], [place] [address]Dr. Donis Mancini WBC 10-20 Abnormal NONE SEEN The [facility] Comment on above: Performed By: #### U AMIC ####[facility] Fwxukuffio[address] [place] [address]Dr. Donis Mancini CULTURE URINEon 04-27-2022 CULTURE URINE Culture Observations: LIGHT GROWTH OF MIXED GENITAL RAMBO. NO POTENTIAL PATHOGENS SEEN. Normal The [facility] Comment on above: Performed By: #### U RCX ####[facility] Auboehadzd9486 [place] [address]Dr. Donis Live UA (CLEAN/CATCH) [employer]/MICRO I F IND.on 04-27-2022 Bilirubin Ql (U) Negative Normal NEGATIVE The [facility] Comment on above: Performed By: #### U ACSIND, ICRO ####[facility] Eyaugiemie[address] [place] [address]Dr. Donis Live Clarity (U) CLEAR Normal CLEAR The [facility] Comment on above: Performed By: #### U ACSIND, ICRO ####[facility] Gfv[address]mze[address] [place], [place] [address]Dr. Donis Mancini Color (U) LT. YELLOW Normal YELLOW The [facility] Comment on above: Performed By: #### U ACSIND, ICRO ####[facility] [address]hegwab[address] [place], [place] [address]Dr. Laceyjavi Live Glucose Ql (U) Negative Normal NEGATIVE [facility] Comment on above: Performed By: #### U ACSIND, UMICRO ####[facility] [address] [place], [place] [address]Dr. Donis Mancini Hemoglobin Ql (U) Negative Normal NEGATIVE The [facility] Comment on above: Performed By: #### U ACSIND, UMICRO ####[facility] Flbxmnsveu[address] [place], [place] [address]Dr. Donis Mancini Ketones Ql (U) Negative Normal NEGATIVE [facility] Comment on above: Performed By: #### U ACSIND, UMICRO ####[facility] Voieuqofhs[address] [place], [place] [address]Dr. Donis Mancini LEUKOCYTES SMALL Abnormal NEGATIVE The [facility] Comment on above: Performed By: #### U ACSIND, UMICRO ####[facility] Bbvbfhdgey8538 [place] [address]Dr. Donis Mancini Nitrite Ql (U) Negative Normal NEGATIVE [facility] Comment on above: Performed By: #### U DONNA DAMON ####[facility] Ynivldekue59[address] [place] [address]Dr. Donis Mancini pH (U) 7.0 [pH] Normal 5-9 [facility] Comment on above: Performed By: #### U LORETTA DAMONRO ####[facility] Wweoxaohgl[address] [place] [address]Dr. Donis Live SPEC GRAVITY 1.015 Normal 1.005-<=1.02 5 [facility] Comment on above: Performed By: #### U DONNA DAMON ####[facility] Munpxhfeuk[address]50 [place] [address]Dr. Donis Live UA PROTEIN Negative Normal NEGATIVE/ TRACE The [facility] Comment on above: Performed By: #### DONNA MONIQUE ####[facility] Hrpwwfds[address] [place], [place] [address]Dr. Donis Live UR MICRO IND INDICATED Normal [facility] Comment on above: Performed By: #### U DONNA DAMON ####[facility] [address]rofibwq[address] [place], [place] [address]Dr. Donis Live Urobilinogen Qn (U) 0.2 {Sarah'U}/dL Normal 0.2 - 1. 0 [facility] Comment on above: Performed By: #### U DONNA DAMON ####[facility] Ssyedpnvfr[address] [place] [address]Dr. Donis Live URINE MICROSCOPIC ONLYon BACTERIA MODERATE Abnormal NONE SEEN The [facility] Comment on above: Performed By: #### U LORETTA DAMONRO ####[facility] Oipgxaajjn[address] [place] [address]Dr. Laceyjavi Mancini Bacteria identified Cx Nom (U) INDICATED Normal [facility] Comment on above: Performed By: #### U DONNA DAMON ####[facility] F[address] [place], [place] [address]Dr. Donis Mancini CAST NONE SEEN Normal NONE SEEN The [facility] Comment on above: Performed By: #### U NELSON UMICRO ####[facility] Rwyfrqxsle[address] [place] [address]Dr. Donis Mancini Crystals LM Nom (Urine sed) NONE SEEN Normal NONE SEEN The [facility] Comment on above: Performed By: #### U NELSON UMICRO ####[facility] Gyejmhxwsl26[address] [place] [address]Dr. Donis Mancini Epithelial cells LM Ql (Urine sed) MODERATE Abnormal NONE SEEN /RARE The [facility] Comment on above: Performed By: #### U NELSON UMICRO ####[facility] Lrsdhvomzk[address] [place] [address]Dr. Donis Mancini MUCOUS NONE SEEN Normal NONE SEEN The [facility] Comment on above: Performed By: #### U NELSON UMICRO ####[facility] Zxhyidfdsf4476 [place] [address]Dr. Donis Mancini RBC NONE SEEN Abnormal 0-2 [facility] Comment on above: Performed By: #### U NELSON UMICRO ####[facility] Ygloqqxkvt55[address] [place] [address]Dr. Donis Mancini WBC 2-5 Abnormal NONE SEEN The [facility] Comment on above: Performed By: #### U NELSON UMICRO ####[facility] Azjfdugaun[address] [place] [address]Dr. Donis Mancini US KIDNEYSon 04-27-2022 US KIDNEYS [...] by: ANDREAS AN Date: 2022-04-27 17:48 Normal [facility] CULTURE URINEon 04-16-2022 CULTURE URINE Isolate 1 [...] Trimethoprim/Sulfame thoxazole <=20 S F Normal The [facility] Comment on above: Performed By: #### U RCX #### [facility] [address] [place] [address] Dr. Donis Mancini US PREG ANATOMY SINGLEon [...] ESTEFANY BENNETT Date: 2022-04-12 22:22 Normal [facility] UA RANDOM W/MICROSCOPICon BACTERIA SMALL Abnormal NONE SEEN The [facility] Comment on above: Performed By: #### U AMIC #### [facility] [address] [place] [address] Dr. Donis Mancini Bilirubin Ql (U) Negative Normal NEGATIVE [facility] Comment on above: Performed By: #### U AMIC #### [facility] [address] [place] [address] Dr. Donis Mancini CAST NONE SEEN Normal NONE SEEN [facility] Comment on above: Performed By: #### U AMIC #### [facility] [address] [place] [address] Dr. Donis Mancini Clarity (U) CLEAR Normal CLEAR [facility] Comment on above: Performed By: #### U AMIC #### [facility] [address] [address] [address] Donis Mancini Color (U) LT. YELLOW Normal YELLOW [facility] Comment on above: Performed By: #### U AMIC #### [facility] [address] [place] [address] Dr. Donis Mancini Crystals LM Nom (Urine sed) NONE SEEN Normal NONE SEEN [facility] Comment on above: Performed By: #### U AMIC #### [facility] [address] [place] [address] Dr. Donis Mancini Epithelial cells LM Ql (Urine sed) FEW Abnormal NONE SEEN /RARE The [facility] Comment on above: Performed By: #### U AMIC #### [facility] [address] [address] [address] Donis Mancini Glucose Ql (U) Negative Normal NEGATIVE [facility] Comment on above: Performed By: #### U AMIC #### [facility] [address] [address] [address] Donis Mancini Hemoglobin Ql (U) Negative Normal NEGATIVE [facility] Comment on above: Performed By: #### U AMIC #### [facility] [address] [address] [address] Donis Mancini Ketones Ql (U) Negative Normal NEGATIVE [facility] Comment on above: Performed By: #### U AMIC #### [facility] [address] [place] [address] Dr. Donis Mancini LEUKOCYTES LARGE Abnormal NEGATIVE [facility] Comment on above: Performed By: #### U AMIC #### [facility] [address] [address] [address] Donis Mancini MUCOUS NONE SEEN Normal NONE SEEN [facility] Comment on above: Performed By: #### U AMIC #### [facility] [address] [address] [address] Donis Mancini Nitrite Ql (U) Negative Normal NEGATIVE [facility] Comment on above: Performed By: #### U AMIC #### [facility] [address] [address] [address] Donis Mancini pH (U) 5.5 [pH] Normal 5-9 [facility] Comment on above: Performed By: #### U AMIC #### [facility] [address] [address] [address] Donis Mancini RBC 0-2 Normal 0-2 [facility] Comment on above: Performed By: #### U AMIC #### [facility] [address] [place] [address] Dr. Donis Mancini SPEC GRAVITY <=1.005 Abnormal 1.005-<=1.02 5 [facility] Comment on above: Performed By: #### U AMIC #### [facility] [address] [address] [address] Donis Mancini UA PROTEIN Negative Normal NEGATIVE/ TRACE [facility] Comment on above: Performed By: #### U AMIC #### [facility] [address] [id number] Donis Mancini Urobilinogen Qn (U) 0.2 {Sarah'U}/dL Normal 0.2 - 1. 0 [facility] Comment on above: Performed By: #### U AMIC #### [facility] [address] [address] [address] Donis Mancini WBC 5-10 Abnormal NONE SEEN The [facility] Comment on above: Performed By: #### U AMIC #### [facility] [address] [address] [address] Donis Mancini HEP B SURFACE ANTIGEN SCREEN on 01-23-2022 HBsAg Screen Negative Normal Negative [facility] Comment on above: Performed By: #### U AMIC #### [facility] [address] [address] [address] Donis Mancini HEPATITIS C VIRUS AB W/ REFL EX QUANTon 01-23-2022 HCV AB 0.1 s/co ratio Normal 0.0-0.[address] [facility] Comment on above: Performed By: #### H CVPCRR ####[facility] [address] [place] [id number]. Donis Mancini Interpretation: Comment Normal [facility] [place] Comment on above: Result Comment: Nega tive Not infected with HCV, unless recent infection is suspected or other evidence exists to indicate HCV infection. Performed By: #### H CVPCRR ####[facility] [address] [place] [id number]. Donis Mancini HIV 1 AND 2 WITH REFLEXon HIV Screen 4th Generation wRfx Non-Reactive Normal Non Reactive [facility] Comment on above: Result Comment: HIV Negative HIV-1/HIV-2 antibodies and HIV-1 p24 antigen were NOT detected. There is no laboratory evidence of HIV infection. Performed By: #### H IV12 ####[facility] [address]vaone[address] [place] [address]Dr. Donis Mancini RPR QUANTon 01-23-2022 Rapid Plasma Reagin, Quant Non-Reactive Normal NonRea<1:1 [facility] Comment on above: Result Comment: Ashley catalan Note: This test does not meet current guidelines for screening and diagnosis of syphilis. This test is intended for following treatment response in patients being treated for syphilis infection. To screen for syphilis infection, a reflex cascade that includes both RPR and a treponema-specific assay should be utilized, such as Treponema pallidum (Syphilis) Screening Coos (881884) or Rapid Plasma Reagin (RPR) Test With Reflex to Quantitative RPR and Confirmatory Treponema pallidum Antibodies (856519). Performed By: #### R PRQ ####[facility] [address] [place] [address]Dr. Donis Mancini RUBELLA AB IGGon 01-23-2022 Rubella Antibodies, IgG 1.60 index Normal Immune >0.99 [facility] Comment on above: Result Comment: Non- immune <0.90 Equivocal 0.90 - 0.99 Immune >0.99 Performed By: #### U AMIC #### [facility] [address] [place] [address] Dr. Donis Mancini CBC AUTO DIFFon 01-22-2022 BASO # 0.1 103/ul Normal 0.0-0.1 [facility] Comment on above: Performed By: #### U AMIC #### [facility] [address] [place] [address] Dr. Donis Mancini Basophils/100 WBC (Bld) 0.5 % Normal 0.2-2.0 [facility] Comment on above: Performed By: #### U AMIC #### [facility] [address] [place] [address] Dr. Donis Mancini EO # 0.6 103/ul Normal 0.0-0.7 [facility] Comment on above: Performed By: #### U AMIC #### [facility] [address] [place] [address] Dr. Donis Mancini Eosinophils/100 WBC (Bld) 5.1 % Normal 0.9-7.0 [facility] Comment on above: Performed By: #### U AMIC #### [facility] [address] [place] [address] Dr. Donis Mancini Erythrocyte distribution width (RBC) [Ratio] 12.0 % Normal 11.0-15.0 [facility] Comment on above: Performed By: #### U AMIC #### [facility] [address] [place] [address] Dr. Donis Mancini Hematocrit (Bld) [Volume fraction] 45.8 % Normal 36.0-48.0 [facility] Comment on above: Performed By: #### U AMIC #### [facility] [address] [place] [address] Dr. Donis Mancini Hemoglobin (Bld) [Mass/Vol] 15.3 g/dL Normal 12.0-16.0 [facility] [place] Comment on above: Performed By: #### U AMIC #### [facility] [address] [place] [address] Dr. Donis Mancini IG # 0.03 10e3/ul Normal 0.00-0.03 [facility] [place] Comment on above: Performed By: #### U AMIC #### [facility] [address] [place] [address] Dr. Donis Mancini IG % 0.3 % Normal 0.0-0.5 [facility] [place] Comment on above: Performed By: #### U AMIC #### [facility] [address] [place] [address] Dr. Donis Mancini LYMPH # 1.7 103/ul Normal 1.2-3.8 [facility] Comment on above: Performed By: #### U AMIC #### [facility] [address] [place] [address] Dr. Donis Mancini Lymphocytes/100 WBC (Bld) 15.9 % Critically low 20.5-60.0 [facility] [place] Comment on above: Performed By: #### U AMIC #### [facility] [address] [place] [address] Dr. Donis Mancini MANUAL DIFF REQ NO Normal [facility] [place] Comment on above: Performed By: #### U AMIC #### [facility] [address] [place] [address] Dr. Donis Mancini MCH (RBC) [Entitic mass] 31.5 pg Normal 26.7-34.0 [facility] [place] Comment on above: Performed By: #### U AMIC #### [facility] [address] [place] [address] Dr. Donis Mancini MCHC (RBC) [Mass/Vol] 33.4 g/dL Normal 29.9-35.2 [facility] [place] Comment on above: Performed By: #### U AMIC #### [facility] [address] [place] [address] Dr. Donis Mancini MCV (RBC) [Entitic vol] 94.2 fL Normal 81.0-99.0 [facility] [place] Comment on above: Performed By: #### U AMIC #### [facility] [address] [place] [address] Dr. Donis Mancini MONO # 0.6 103/ul Normal 0.3-0.8 [facility] [place] Comment on above: Performed By: #### U AMIC #### [facility] [address] [place] [address] Dr. Donis Mancini Monocytes/100 WBC (Bld) 5.8 % Normal 1.7-12.0 [facility] [place] Comment on above: Performed By: #### U AMIC #### [facility] [address] [place] [address] Dr. Donis Mancini NEUT # 7.8 103/ul Critically high 1.4-6.5 [facility] [place] Comment on above: Performed By: #### U AMIC #### [facility] [address] [place] [address] Dr. Donis Mancini Neutrophils/100 WBC (Bld) 72.4 % Normal 43.0-75.0 [facility] [place] Comment on above: Performed By: #### U AMIC #### [facility] [address] [place] [address] Dr. Donis Mancini Platelet mean volume (Bld) [Entitic vol] 9.9 fL Normal 9.5-13.5 [facility] [place] Comment on above: Performed By: #### U AMIC #### [facility] [address] [address] [address] Donis Mancini PLT 281 103/ul Normal 150-450 [facility] Comment on above: Performed By: #### U AMIC #### [facility] [address] [address] [address] Donis Mancini RBC 4.86 106/ul Normal 4.20-5.40 [facility] [place] Comment on above: Performed By: #### U AMIC #### [facility] [address] [address] [address] Donis Mancini WBC 10.8 103/ul Normal 4.0-11.0 [facility] [place] Comment on above: Performed By: #### U AMIC #### [facility] [address] [address] [address] Donis Mancini CULTURE URINEon 01-22-2022 CULTURE URINE Culture Observations: LIGHT GROWTH OF MIXED GENITAL RAMBO. NO POTENTIAL PATHOGENS SEEN. Normal [facility] Comment on above: Performed By: #### U RCX #### [facility] [address] [place] [address] Dr. Donis Mancini GLYCOHEMOGLOBIN A1Con 2021 ADA RECOMMENDATION SEE BELOW Normal [facility] Comment on above: Result Comment: ADA RECOMMENDED LIMIT 4.0 - 6.0 ADA THERAPEUTIC TARGET < 7.0 ACTION SUGGESTED > 7.0 Performed By: #### A 1C ####[facility] [address] [address]Dr. Donis Mancini Glucose [Mass/Vol] 100 mg/dL Normal [facility] Comment on above: Performed By: #### A 1C ####[facility] [address] [id number]. Donis Mnacini HbA1c (Bld) [Mass fraction] 5.1 % Normal 4.5-6.2 [facility] [place] Comment on above: Performed By: #### A 1C ####[facility] [address] [place], [place] [address]Vj. Donis Mancini SEAN BOX TEST PT SEND OUTo n 01-22-2022 SENT TO REF LAB 01/22/[address] [facility] Comment on above: Performed By: #### N BOX ####[facility] [address] [place], [place] [address]Tw. Donis Mancini TYPE AND SCREENon 01-22-2022 TYPE AND SCREEN Negative Normal [facility] Comment on above: Performed By: #### T NS #### [facility] [address] [place], [place] [address] Dr. Donis Mancini US PREG TVon 01-17-2022 [...] COCO STERN Date: 2022-01-17 09:34 Normal [facility] Provider Letteron 04-06-2021 Provider Letter April 06, 2021 Dear Vimal, We have been trying to reach you with no success. It is important that you return our call regarding your appointment upon receiving this letter. Also, at the time of your call, please provide us with your current information. Thank you for your prompt attention to this matter. Sincerely, [facility] [place] [address] Normal [facility] Ambulatory Clinical Summaryo n 06-15-2021 Ambulatory Clinical Summary {[id number]}CD:[id number] Normal [facility] Ambulatory Clinical Summaryo n 03-05-2021 Ambulatory Clinical Summary {[id number]}CD:[id number] Normal [facility] Gynecology Phone Visit- Tele healthon [...] only communication with the patient located at [address] [place] [phone], with no one else. 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 CODING DATE: 12/18/2020 FINAL [facility] STATUS: Home (Routine DC) PAYOR: Lory ADMIT [...] CphT Date Saved: 12/18/2020 12:44 pm Normal [facility] Physician Orderon 12-16-2020 Physician Order [id number] #[id number]:[id number] Normal [facility] Rapid COVID Antigen ([facility])on 12-16-2020 Rapid COV Int NEG Ctl Pass Normal [facility] Comment on above: Performed By: #### 2 [id number] #### [facility] [address] [place] [address] Rapid COV Int POS Ctl Pass Normal [facility] Comment on above: Performed By: #### 2 [id number] #### [facility] [address] [place] [address] SARS-CoV-2 (COVID-19) RNA INESSA+probe Ql (Unsp spec) Detected Abnormal Not Detected [facility] Comment on above: Result Comment: Left a message for callback. 12/16/2020 11:42:47 EDT Results faxed to infection control. The Traction Veritor? System for Rapid Detection of SARS-CoV-2 [...] or revoked sooner. Performed By: #### 2 [id number] #### [facility] [address] [place] [address] Employed in Healthcare Unknown Normal [facility] Comment on above: Performed By: #### 2 [id number] #### [facility] [address] [place] [address] First Test Unknown Normal [facility] Comment on above: Performed By: #### 2 [id number] #### [facility] [address] [place] [address] Hospitalized? NO Normal [facility] Comment on above: Performed By: #### 2 [id number] #### [facility] [address] [place] [address] ICU NO Normal [facility] Comment on above: Performed By: #### 2 [id number] #### [facility] [address] [place] [address] ? Unknown Normal [facility] Comment on above: Performed By: #### 2 [id number] #### [facility] [address] [place] [address] Resides in a Congregate Care Setting Unknown Normal [facility] Comment on above: Performed By: #### 2 [id number] #### [facility] [address] [place] [address] Symptomatic as defined by CDC YES Normal [facility] Comment on above: Performed By: #### 2 [id number] #### [facility] [address] [place] [address] Ambulatory Clinical Summaryssm rehab 11-25-2020 Ambulatory Clinical Summary {[id number]}CD:[id number] Normal [facility] Vital Signs Date Time Vital Sign Value Performing Clinician Facility 04-30-2025 11:52-0400 Body mass index (BMI) [Ratio] 31 kg/m2 Rossana BISWAS Work Phone: [facility] 04-30-2025 11:52-0400 Body weight 79.38 kg Rossana BISWAS Work Phone: [facility] 04-30-2025 11:52-0400 Diastolic blood pressure 94 mm[Hg] Rossana BISWAS Work Phone: [facility] 04-30-2025 11:52-0400 Systolic blood pressure 140 mm[Hg] Rossana BISWAS Work Phone: [facility] 04-11-2025 15:38-0400 Body mass index (BMI) [Ratio] 30.2 kg/m2 Rossana Rittman PA Work Phone: [facility] 04-11-2025 15:38-0400 Body weight 77.34 kg Rossana Rachel PA Work Phone: [facility] 04-11-2025 15:38-0400 Diastolic blood pressure 100 mm[Hg] Rossana Rittman PA Work Phone: [facility] 04-11-2025 15:38-0400 Systolic blood pressure 142 mm[Hg] Rossana Rittman PA Work Phone: [facility] 03-14-2025 11:36-0400 Body mass index (BMI) [Ratio] 29.23 kg/m2 Jose Michael DO Work Phone: [facility] 03-14-2025 11:36-0400 Body weight 74.84 kg Jose Michael DO Work Phone: [facility] 03-14-2025 11:36-0400 Diastolic blood pressure 76 mm[Hg] Jose Michael DO Work Phone: [facility] 03-14-2025 11:36-0400 Systolic blood pressure 112 mm[Hg] Jose Michael DO Work Phone: [facility] 02-20-2025 16:08-0400 Body mass index (BMI) [Ratio] 28.83 kg/m2 Rossana Rachel PA Work Phone: [facility] 02-20-2025 16:08-0400 Body weight 73.82 kg Rossana Rachel PA Work Phone: [facility] 02-20-2025 16:08-0400 Diastolic blood pressure 82 mm[Hg] Rossana Rittman PA Work Phone: [facility] 02-20-2025 16:08-0400 Systolic blood pressure 110 mm[Hg] Rossana Rittman PA Work Phone: [facility] 01-14-2025 15:42-0400 Body mass index (BMI) [Ratio] 27.3 kg/m2 Jose Michael DO Work Phone: [facility] 01-14-2025 15:42-0400 Body weight 69.91 kg Jose Michael DO Work Phone: [facility] 01-14-2025 15:42-0400 Diastolic blood pressure 70 mm[Hg] Jose Michael DO Work Phone: [facility] 01-14-2025 15:42-0400 Systolic blood pressure 120 mm[Hg] Jose Michael DO Work Phone: [facility] 08-20-2024 10:55-0500 Body mass index (BMI) [Ratio] 25.93 kg/m2 Rossana Leach PA Work Phone: [facility] 08-20-2024 10:55-0500 Body weight 66.41 kg Rossana Leach PA Work Phone: [facility] 08-20-2024 10:55-0500 Diastolic blood pressure 70 mm[Hg] Rossana Leach PA Work Phone: [facility] 08-20-2024 10:55-0500 Systolic blood pressure 120 mm[Hg] Rossana Rachel PA Work Phone: [facility] 08-06-2024 09:38-0500 Body mass index (BMI) [Ratio] 25.47 kg/m2 Jose Michael DO Work Phone: [facility] 08-06-2024 09:38-0500 Body weight 65.23 kg Jose Michael DO Work Phone: [facility] 08-06-2024 09:38-0500 Diastolic blood pressure 70 mm[Hg] Jose Michael DO Work Phone: [facility] 08-06-2024 09:38-0500 Systolic blood pressure 120 mm[Hg] Jose Michael DO Work Phone: [facility] 06-29-2024 09:12-0400 Body mass index (BMI) [Ratio] 24.58 kg/m2 [facility] 06-29-2024 09:12-0400 Body weight 62.[address] [facility] 06-29-2024 09:12-0400 Diastolic blood pressure 72 mm[Hg] [facility] Nurse [facility] 06-29-2024 09:12-0400 Systolic blood pressure 122 mm[Hg] [facility] Nurse [facility] 12-26-2022 13:45-0400 Body height 160.02 cm Jennifer Dudleymond Other [employer] Other 12-26-2022 13:45-0400 Body mass index (BMI) [Ratio] 27.45 kg/m2 Jennifer Huston Other [employer] Other 12-26-2022 13:45-0400 Body temperature 97 [degF] Jennifer Huston Other [employer] Other 12-26-2022 13:45-0400 Body weight 70.31 kg Jennifer Huston Other [employer] Other 12-26-2022 13:45-0400 Diastolic blood pressure 89 mm[Hg] Jennifer Dudleymond Other [employer] Other 12-26-2022 13:45-0400 Respiratory rate 18 /min Jennifer Huston Other [employer] Other 12-26-2022 13:45-0400 SaO2% (BldA) [Mass fraction] 100 % Jennifer Dudleymond Other [employer] Other 12-26-2022 13:45-0400 Systolic blood pressure 135 mm[Hg] Jennifer Betzaida Other [employer] Other Encounters Encounter Date Encounter Type Care [...] Comment on above: Second trimester pre gnancy ([facility]); 27 weeks gestation of ([facility]); induced hypertension, antepartum ([facility]) Start: 04-25-2025 End: 04-25-2025 ambulatory ROSSANA LEACH [...] Comment on above: Second trimester pre gnancy ([facility]); 25 weeks gestation of ([facility]); Diabetes mellitus screening; Elevated BP [...] Bamboo flowsheet Jose Michael DO Work Phone: [facility] Start: 03-14-2025 End: 03-14-2025 ambulatory JOSE MICHAEL Not Available Start: 03-14-2025 End: 03-14-2025 flow sheet Jose Michael DO Work Phone: [facility] Comment on above: Second trimester pre gnancy ([facility]); 21 weeks gestation of ([facility]) Start: 03-08-2025 End: 03-08-2025 Clinisync Result Encounter Jose Michael DO Work Phone: [facility] External Department Unsolicited Start: 03-08-2025 End: 03-08-2025 Clinisync Result Encounter Jose Michael DO Work Phone: [facility] External Department Unsolicited Start: 02-20-2025 End: 02-20-2025 Patient encounter procedure Rossana BISWAS Work Phone: [facility] Healthcare Start: 02-20-2025 End: 02-20-2025 flow sheet Rossana BISWAS Work Phone: [facility] Comment on above: Screening, , for anatomic survey; Well woman exam with routine gynecological exam; STD exposure; Second trimester ; 18 weeks gestation of ; Urinary frequency Start: 02-20-2025 End: 02-20-2025 ambulatory ROSSANA LEACH Not Available Start: 02-20-2025 End: 02-20-2025 Bamboo flowsheet Rossana BISWAS Work Phone: [facility] Start: 02-20-2025 End: 02-23-2025 Bamboo flowsheet Rossana BISWAS Work Phone: [facility] Start: 02-20-2025 End: 02-23-2025 Clinisync Result Encounter Rossana BISWAS Work Phone: [facility] External Department Unsolicited Start: 02-20-2025 End: 02-22-2025 [...] Start: 08-10-2024 End: 08-10-2024 ambulatory PHYSICIAN NO [facility] Work Phone: Start: 08-10-2024 End: 08-10-2024 Departed Referred PHYSICIAN NO [facility] Start: 08-06-2024 [...] 12-26-2022 End: 12-26-2022 ambulatory Jennifer Huston Other [facility] [employer] Other Start: 12-26-2022 End: 12-26-2022 Patient encounter procedure 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 Jennifer Huston Work Phone: [facility] Work Phone: [...] 07-21-2024 [facility] DRUG SCREEN RAPI D (URINE) [facility] DO Work Phone: Start: 06-29-2024 End: 06-29-2024 Urnls dip stick/tablet rgnt non-auto w/o micrscp [facility] DO Work Phone: Start: 12-26-2022 Plain X-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 hand 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 Jennifer Huston Work Phone: Start: 11-02-2022 Cytp cerv/vag auto t hin layer prep mnl screen Jose Michael DO Work Phone: Start: 08-10-2022 Delivery of Products of Conception, External Approach DR JOSE RODRIGUEZ . Start: 08-10-2022 Division of Female Perineum, External Approach DR JOSE RODRIGUEZ . Start: 08-10-2022 Drainage of Amniotic Fluid, Therapeutic from Products of Conception, Via Natural or Artificial Opening DR JOSE RODIRGUEZ . Start: 08-10-2022 Introduction of Othe r Hormone into Peripheral Vein, Percutaneous Approach DR JOSE RODRIGUEZ . Plan of Treatment Date Care Activity Detail Author Start: 05-27-2025 Influenza vaccination [facility] Start: 05-14-2025 End: 05-14-2025 Patient encounter procedure 05/14/2025 2:40 PM EDT Routine [facility] [address] [place] [address] [place] [address] Jose Rodriguez DO [address] [place] [place] [address] [facility] [place] [facility] Start: 04-30-2025 End: 10-31-2025 [...] control unspecified (HHS-HCC) Expected: 04/30/2025, Expires: 08/30/2025 [facility] Comment on above: Expected: 04/30/2025 , Expires: 08/30/2025 Start: 04-30-2025 End: 04-30-2025 Patient encounter procedure 04/30/2025 10:50 AM EDT Routine [facility] [place] [facility] [address] [place] [phone] Rossana Leach PA [address] [place] [address] [facility] [place] [facility] Start: 04-25-2025 End: 04-25-2025 [...] antepartum (HHS-HCC) Expected: 04/25/2025 (Approximate), Expires: 04/25/2026 [facility] Comment on above: Expected: 04/25/2025 (Approximate), Expires: 04/25/2026 Start: 04-25-2025 End: 04-25-2026 CBC W Auto Differential panel - Blood CBC and differential Lab Routine induced hypertension, antepartum (HHS-HCC) Expected: 04/25/2025 (Approximate), Expires: 04/25/2026 [facility] Comment on above: Expected: 04/25/2025 (Approximate), Expires: 04/25/2026 Start: 04-25-2025 End: 04-25-2026 Creatinine [Mass/volume] in Serum or Plasma Creatinine Lab Routine induced hypertension, antepartum (HHS-HCC) Expected: 04/25/2025 (Approximate), Expires: 04/25/2026 [facility] Work Phone: Comment on above: Expected: 04/25/2025 (Approximate), Expires: 04/25/2026 Start: 04-25-2025 End: 04-25-2026 Lactate dehydrogenase [Enzymatic activity/volume] in Serum or Plasma by Lactate to pyruvate reaction Lactate dehydrogenase Lab Routine induced hypertension, antepartum (HHS-HCC) Expected: 04/25/2025, Expires: 04/25/2026 [facility] Comment on above: Expected: 04/25/2025 , Expires: 04/25/2026 Start: 04-25-2025 End: 04-25-2026 Protein, urine, 24 hour Protein, urine, 24 hour Lab Routine induced hypertension, antepartum (HHS-HCC) Expected: 04/25/2025 (Approximate), Expires: 04/25/2026 [facility] Comment on above: Expected: 04/25/2025 (Approximate), Expires: 04/25/2026 Start: 04-25-2025 End: 04-25-2026 Pt and ptt Pt and ptt Lab Routine induced hypertension, antepartum (HHS-HCC) Expected: 04/25/2025, Expires: 04/25/2026 [facility] Comment on above: Expected: 04/25/2025 , Expires: 04/25/2026 Start: 04-25-2025 End: 04-25-2026 Urate [Mass/volume] in Serum or Plasma Uric acid Lab Routine induced hypertension, antepartum (HHS-HCC) Expected: 04/25/2025 (Approximate), Expires: 04/25/2026 [facility] Comment on above: Expected: 04/25/2025 (Approximate), Expires: 04/25/2026 Start: 04-25-2025 End: 04-25-2026 Urea nitrogen [Mass/volume] in Serum or Plasma BUN Lab Routine induced hypertension, antepartum (HHS-HCC) Expected: 04/25/2025, Expires: 04/25/2026 [facility] Comment on above: Expected: 04/25/2025 , Expires: 04/25/2026 Start: 04-11-2025 End: 04-11-2025 Patient encounter procedure 04/11/2025 3:30 PM EDT Routine [facility] [address] [address] Rossana Leach PA [address] [place] [address] [facility] Start: 04-11-2025 End: 04-11-2026 CBC panel - Blood by Automated count CBC Lab Routine Diabetes mellitus screening Expected: 04/11/2025 (Approximate), Expires: 04/11/2026 [facility] Work Phone: Comment on above: Expected: 04/11/2025 (Approximate), Expires: 04/11/2026 Start: 04-11-2025 End: 04-11-2026 Measurement of glucose 1 hour after glucose challenge for glucose tolerance test Glucose tolerance, 1 hour Lab Routine Diabetes mellitus screening Expected: 04/11/2025 (Approximate), Expires: 04/11/2026 [facility] Comment on above: Expected: 04/11/2025 (Approximate), Expires: 04/11/2026 Start: 03-14-2025 End: 03-14-2025 Patient encounter procedure 03/14/2025 10:50 AM EDT Routine [facility] [address] [place] [address] Jose Rodriguez, DO [address] [place] [address] [facility] Start: 02-20-2025 End: 02-20-2025 [...] AM EDT Initial [facility] [address] [place] [address] [facility] Start: 12-14-2024 End: 12-14-2024 Professional / ancillary services management 12/14/2024 8:30 AM EDT Ancillary Procedure [facility] [address] [place] [address] [facility] Start: 08-20-2024 End: 08-20-2024 Patient encounter procedure 08/20/2024 10:20 AM EST Office Visit [facility] [address] [phone] Rossana Leach PA [address] [place], [place] [phone] [facility] Start: 08-06-2024 End: 08-06-2024 Patient encounter procedure 08/06/2024 9:10 AM EST [facility] [address] [place] [phone] Jose Rodriguez DO [address] [place], [place] [id number] [facility] Start: 06-29-2024 End: 06-29-2025 ABO/Rh ABO/Rh Lab Routine Missed menses , unspecified gestational age Expected: 06/29/2024 (Approximate), Expires: 06/29/2025 [facility] Comment on above: Expected: 06/29/2024 (Approximate), Expires: 06/29/2025 Start: 06-29-2024 End: 06-29-2025 Blood type and Indirect antibody screen panel - Blood Type and screen Lab Routine Missed menses , unspecified gestational age Expected: 06/29/2024 (Approximate), Expires: 06/29/2025 [facility] Work Phone: Comment on above: Expected: 06/29/2024 (Approximate), Expires: 06/29/2025 Start: 06-29-2024 End: 06-29-2025 Drugs of abuse panel - Urine by Screen method Rapid drug screen, urine Lab Routine , unspecified gestational age Encounter for supervision of normal first in first trimester Expected: 06/29/2024 (Approximate), Expires: 06/29/2025 [facility] Comment on above: Expected: 06/29/2024 (Approximate), Expires: 06/29/2025 Start: 06-29-2024 End: 06-29-2025 US Pelvis transvaginal US OB transvaginal Imaging Routine Missed menses Expected: 06/29/2024 (Approximate), Expires: 06/29/2025 [facility] Comment on above: Expected: 06/29/2024 (Approximate), Expires: 06/29/2025 Start: 05-27-2024 Influenza vaccination Influenza Vacc ine (#1) [facility] Bacteria identified in Urine by Culture Urine culture Microbiology Routine Missed menses Ordered: 06/29/2024 [facility] Comment on above: Ordered: 06/29/2024 Bacteria identified in Urine by Culture Urine culture Microbiology Routine Urinary frequency Ordered: 02/20/2025 [facility] Comment on above: Ordered: 02/20/2025 CBC W Auto Different ial panel - Blood CBC and differential Lab Routine Missed menses , unspecified gestational age Ordered: 06/29/2024 [facility] Comment on above: Ordered: 06/29/2024 CHLAMYDIA TRACHOMATI S (GENITO/STI) CHLAMYDIA TRACHOMATIS (GENITO/STI) Lab Routine STD exposure Ordered: 02/20/2025 [facility] Comment on above: Ordered: 02/20/2025 Cytology Cervical or vaginal smear or scraping study Pap Smear Pathology and Cytology Routine Well woman exam with routine gynecological exam Ordered: 02/20/2025 [facility] Comment on above: Ordered: 02/20/2025 Hemoglobin A1c/Hemoglobin.total in Blood Hemoglobin A1c Lab Routine Missed menses , unspecified gestational age Ordered: 06/29/2024 [facility] Comment on above: Ordered: 06/29/2024 Hepatitis B virus beltran rface Ag [Presence] in Serum or Plasma by Immunoassay Hepatitis B surface antigen Lab Routine Missed menses , unspecified gestational age Ordered: 06/29/2024 [facility] Comment on above: Ordered: 06/29/2024 Hepatitis C virus Ab [Presence] in Serum or Plasma by Immunoassay Hepatitis C antibody Lab Routine Missed menses , unspecified gestational age Ordered: 06/29/2024 [facility] Comment on above: Ordered: 06/29/2024 HIV-1/HIV-2 antigen/antibody combination immunoassay HIV-1 and HIV-2 antibodies Lab Routine Missed menses , unspecified gestational age Ordered: 06/29/2024 [facility] Comment on above: Ordered: 06/29/2024 Neisseria gonorrhoea e DNA [Presence] in Unspecified specimen by INESSA with probe detection Neisseria gonorrhea DNA probe, direct Lab Routine STD exposure Ordered: 02/20/2025 [facility] Comment on above: Ordered: 02/20/2025 Reagin Ab [Presence] in Serum by RPR RPR Lab Routine Missed menses , unspecified gestational age Ordered: 06/29/2024 [facility] Comment on above: Ordered: 06/29/2024 Rubella antibody, IgG Rubella an tibody, IgG Lab Routine Missed menses , unspecified gestational age Ordered: 06/29/2024 [facility] Comment on above: Ordered: 06/29/2024 SURESWAB(R) ADVANCED VAGINITIS PLUS, TMA SURESWAB(R) ADVANCED VAGINITIS PLUS, TMA Pathology and Cytology Routine STD exposure Ordered: 02/20/2025 [facility] Work Phone: Comment on above: Ordered: 02/20/2025 Immunizations Immunization Date Immunization Notes Care Provider Ryne abrams 08-28-2002 influenza virus vacc ine, unspecified formulation Noms Nurse [facility] Payers Date Payer Category Payer Medicaid [employer] [place] [employer] [id number] 2023-Present [address] [place] [id number] [id number] 2023 Medicaid (Managed Care) [employer] [id number] 2021 Blue Cross Blue Shield 1.2.8 [id number] 2021 Unknown BCBS BCBS [id number] 2021-Present [phone] [address] [place] [address] 1.2.840.780291.1.13.693.2. 7.3.497950.315 2001 Unknown [id number] 2.16.840.1.514545.3.579.2. 593 2001 Unknown [id number] 2.16.840.1.216383.3.579.2. 593 2001 Unknown [id number] 2.16.840.1.660671.3.579.2. 593 2001 Unknown [id number] 2.16.840.1.598853.3.579.2. 593 2001 Unknown [id number] 2.16.840.1.273895.3.579.2. 593 2001 Unknown [id number] 2.16.840.1.600976.3.579.2. 593 2001 Unknown [id number] 2.16.840.1.357836.3.579.2. 593 2001 Unknown [id number] 2.16.840.1.298860.3.579.2. 593 2001 Unknown [id number] 2.16.840.1.461959.3.579.2. 593 2001 Unknown [id number] 2.16.840.1.565539.3.579.2. 593 2001 Unknown [id number] 2.16.840.1.699441.3.579.2. 593 2001 Unknown [id number] 2.16.840.1.082106.3.579.2. 593 2001 Unknown [id number] 2.16.840.1.065043.3.579.2. 593 2001 Unknown [id number] 2.16.840.1.905725.3.579.2. 593 2001 Unknown [id number] 2.16.840.1.249266.3.579.2. 593 2001 Unknown [id number] 2.16.840.1.940969.3.579.2. 593 2001 Unknown [id number] 2.16.840.1.432718.3.579.2. 593 2001 Unknown [id number] 2.16.840.1.311252.3.579.2. 59 2001 Unknown [id number] 2.16.840.1.251035.3.579.2. 59 2001 Unknown [id number] 2.16.840.1.852785.3.579.2. 59 2001 Unknown [id number] 2.16.840.1.907557.3.579.2. 59 2001 Unknown [id number] 2.16840.1.737503.3.579.2. 125 2001 Unknown [id number] 2.16840.1.646529.3.579.2. 1258 2001 Unknown [id number] 2.16.840.1.337515.3.579.2. 1258 2001 Unknown [id number] 2.16.840.1.357622.3.579.2. 125 2001 Unknown [id number] 2.16.840.1.705840.3.579.2. 125 2001 Unknown [id number] 2.16.840.1.750577.3.579.2. 125 2001 Unknown [id number] 2.16.840.1.173292.3.579.2. 1258 2001 Unknown [id number] 2.16.840.1.457761.3.579.2. 125 2001 Unknown [id number] 2.16.840.1.875643.3.579.2. 1258 2001 Unknown [id number] 2.16.840.1.266751.3.579.2. 1259 2001 Unknown [id number] 2.16.840.1.523894.3.579.2. 1259 1959 Self-pay 1959 Unknown [id number] 1959 Unknown [id number] Unknown [id number] 2.16.840.1.369453.3.579.2. 593 Unknown [id number] 2.16.840.1.337907.3.579.2. 531 Social History Date Type Detail Facility Start: 10-13-2023 End: 06-29-2024 Sex Assigned At [facility] Other Start: 2000 Sex Assigned At Female F [facility] Start: 10-13-2023 Tobacco smoking stat [facility] Never smoked tobacco [facility] Start: 06-29-2024 End: 04-30-2025 Alcoholic beverage intake Current drinker of alcohol (finding) [facility] Start: 10-13-2023 End: 06-29-2024 History of Social function [facility] Start: 05-24-2024 [facility] Start: 2001 Sex assigned at Not on file [facility] Tobacco smoking stat [facility] Unknown if ever smoked [facility] Work Phone: Start: 08-11-2024 Sex Female (finding) [facility] Medical Equipment Procedure Code Equipment Code Equipment Origin al Text Equipment Identifier Dates 1 strip by In Vi tro route Daily Use in the morning prior to breakfast, 1 hour after each meal for a total of 4times daily. [id number] Start: 05-08-2025 End: 06-07-2025 1 each by In Vit ro route Daily Use to check FSBS four times daily [id number] Start: 05-08-2025 End: 06-07-2025 Clinical Notes 12-26-2022 [...] supplies and referring her to diabetic education. [facility] 05-07-2025 Miscellaneous Notes Formattin g of this note might be different from the original. Called pt to let her know that she did not pass her 3 hour glucose test and that I would be sending in supplies and referring her to diabetic education. documented in this encounter [facility] 04-30-2025 History of Presen t illness Narrative [...] resulted 2. -induced hypertension in third trimester ([facility]) O13.3 US biophysical profile w non stress test US OB follow up transabdominal approach labetalol (Normodyne) 300 MG tablet 3. Gestational diabetes mellitus (GDM) in third trimester, gestational diabetes method of control unspecified ([facility]) O24.419 US biophysical profile w non stress [...] of: TRUE Argueta documented in this encounter [facility] 04-25-2025 History of Presen t illness Narrative [...] Medical History: Diagnosis Date Anemia Gestational diabetes ([facility]) History of blood transfusion Lead poisoning Miscarriage ([facility]) Nonsmoker Post depression HISTORY PAST MEDICAL HISTORY SOCIAL HISTORY Past Medical History: Diagnosis Date Anemia Gestational diabetes ([facility]) History of blood transfusion Lead poisoning Miscarriage ([facility]) Nonsmoker Post depression /anxiety Social History [...] ASSESSMENT & PLAN ICD-10-CM 1. Second trimester ([facility]) Z34.92 2. 27 weeks gestation of ([facility]) Z3A.27 Patient presents for BP check. BP elevated today despite taking 100mg bid labetolol daily. We will increase to 200mg bid daily. Patient given labs and instructed to follow up with OB should she develop headache or vision changes Pt will follow up with DR Rodriguez next week Documented by TRUE Argueta on behalf of: TRUE Argueta documented in this encounter [facility] 04-11-2025 History of Presen t illness Narrative [...] ASSESSMENT & PLAN ICD-10-CM 1. Second trimester ([facility]) Z34.92 POCT urinalysis dipstick manually resulted 2. 25 weeks gestation of ([facility]) Z3A.25 3. Diabetes mellitus screening Z13.1 CBC [...] of: TRUE Argueta documented in this encounter [facility] 03-14-2025 History of Presen t illness Narrative [...] Medical History: Diagnosis Date Anemia Gestational diabetes ([facility]) History of blood transfusion Lead poisoning Miscarriage ([facility]) Nonsmoker Post depression HISTORY PAST MEDICAL HISTORY SOCIAL HISTORY Past Medical History: Diagnosis Date Anemia Gestational diabetes ([facility]) History of blood transfusion Lead poisoning Miscarriage ([facility]) Nonsmoker Post depression /anxiety Social History Tobacco [...] nursing note reviewed. Exam conducted with a underground distribution engineer present. Vitals: Estimated body mass index is 29.23 kg/m as calculated from the following: Height as of 01/06/23: 5' 3 . Weight as of this encounter: 165 lb. BP: 112/76 Patient's last menstrual period was 10/15/2024 (exact date). ASSESSMENT & PLAN ICD-10-CM 1. Second trimester ([facility]) Z34.92 POCT urinalysis dipstick manually resulted 2. 21 weeks gestation of ([facility]) Z3A.21 Patient presents today for a routine obstetrics appointment. Patient is currently 21w3d with a Estimated Date of Delivery: 07/22/25. Patient has no complaints at this time and will return to clinic in 4 weeks. Documented by Diamond Borja LPN on behalf of: Jose Rodriguez DO documented in this encounter [facility] 02-20-2025 History of Presen t illness Narrative [...] nursing note reviewed. Exam conducted with a underground distribution engineer present. Vitals: Estimated body mass index is [...] of: TRUE Argueta documented in this encounter [facility] 01-14-2025 History of Presen t illness Narrative [...] nursing note reviewed. Exam conducted with a underground distribution engineer present. Vitals: Estimated body mass index is [...] meat, and stay away from [facility]. Patient has been consulted regarding any [...] Jose Rodriguez DO documented in this encounter [facility] 08-20-2024 History of Presen t illness Narrative [...] having a D&C Hysteroscopy performed at [facility] with Dr. Rodriguez. Pathology results was reviewed with the patient in great detail and all restrictions have been lifted. Follow Up: Patient is to return to the office for annual exam unless needed otherwise. Documented by TRUE Argueta on behalf of: TRUE Argueta documented in this encounter [facility] 08-06-2024 History of Presen t illness Narrative [...] nursing note reviewed. Exam conducted with a underground distribution engineer present. Vitals: Estimated body mass index is [...] vaginal bleeding. Patient to discuss date with Component Assembler Supervisor prior to leaving. Patient is able to obtain work note for the week and if longer is needed she will reach out to office. Documented by Diamond Borja LPN on behalf of: Jose Rodriguez DO documented in this encounter [facility] 06-29-2024 History of Presen t illness Narrative [...] Post depression ([facility]) Family History Problem Relation Name Age of [...] meat, and stay away from [facility]. Patient has also been advised to [...] by: Whitney Peacock documented in this encounter [facility] 12-26-2022 Evaluation note Encounter Date Diagnosis Assessment [...] appointment to be seen soon as possible [employer] Other [employer] noteNo assessment information available [facility] Work Phone: evaluation note* Diagnosis Missed menses , unspecified gestational age Encounter for supervision of normal first in first trimester Nausea Nausea alone 7 weeks gestation of documented in this encounter [facility]* Diagnosis Miscarriage Unspecified spontaneous without mention of complication documented in this encounter [facility]* Diagnosis Postoperative examination Follow-up examination, following unspecified surgery documented in this encounter [facility]* Diagnosis 13 weeks gestation of Second trimester state, incidental documented in this encounter [facility]* Diagnosis Screening, , for anatomic survey Encounter for anatomic survey Well woman exam with routine gynecological exam Routine gynecological examination STD exposure Second trimester state, incidental 18 weeks gestation of Urinary frequency documented in this encounter [facility]* Diagnosis Second trimester ([facility]) state, incidental 21 weeks gestation of ([facility]) documented in this encounter [facility]* Diagnosis Second trimester ([facility]) state, incidental 25 weeks gestation of ([facility]) Diabetes mellitus screening Screening for diabetes mellitus Elevated BP without diagnosis of hypertension documented in this encounter [facility]* Diagnosis Second trimester ([facility]) state, incidental 27 weeks gestation of ([facility]) induced hypertension, antepartum ([facility]) Transient hypertension of , antepartum documented in this encounter [facility]* Diagnosis BP check Screening for hypertension -induced hypertension in third trimester ([facility]) Gestational diabetes mellitus (GDM) in third trimester, gestational diabetes method of control unspecified ([facility]) [facility] Diagnosis Gestational diabetes mellitus (GDM), antepartum, gestational diabetes method of control unspecified ([facility]) Elevated glucose tolerance test Impaired glucose tolerance test documented in this encounter [facility] Summary Purpose Family History No Family History Records FoundNo Family History Records FoundNo Family History Records FoundNo Family History Records Found Advance Directives Advance Directive Response Recorded Date/ Time Advance Directives No December 27 6:21am Additional Source Comments INFORMATION SOURCE (unrecogn ized section and content) DATE CREATED AUTHOR [facility]/24/2021 [facility] DATE CREATED AUTHOR AUTHOR'S ORGANIZ ATION 12/07/2022 [facility] DATE CREATED AUTHOR AUTHOR'S ORGANIZ ATION 08/15/2024 [facility] DATE CREATED AUTHOR AUTHOR'S ORGANIZ ATION 05/03/2025 [facility] d[facility] Specialists EPIC REASON FOR VISIT (unrecogniz ed section and content) Reason Comments Initial Visit Reason Comments Miscarriage Reason Comments Post-op Visit Reason Comments Routine Visit Reason Comments Blood Pressure Check Care Teams (unrecognized sec tion and content) Team Status: Inactive Member Role Status Dates Jennifer Huston , 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 Attending Provider Active Regulatory Affairs Coordinator Relationship Specialty Start Date End Date Vaishali Zapata MD [address] [place] [address] PCP - General Family Medicine 02/04/23 Regulatory Affairs Coordinator Relationship Specialty Start Date End Date Vaishali Zapata MD [address] [place] [address] PCP - General Family Medicine 02/04/23 Team Status: Active Member Role Status Dates PHYSICIAN NO FAMILY Primary Care Provider Active Team Status: Inactive Member Role Status Dates PHYSICIAN NO FAMILY Primary Care Provider Active Start: August 10, 2024 End: August 10, 2024 Jose Rodriguez DO Attending Provider Active Start : August 10, 2024 End: August 10, 2024 Regulatory Affairs Coordinator Relationship Specialty Start Date End Date Unallocated, [place] [address] PCP - General Family Medicine 08/03/24 Regulatory Affairs Coordinator Relationship Specialty Start Date End Date Unallocated, Arjun Vo MD [facility] [address] [facility] [facility] [place] [address] PCP - General Family Medicine 08/03/24 Regulatory Affairs Coordinator Relationship Specialty Start Date End Date Unallocated, Arjun Vo MD [facility] [address] [facility] [facility] [place] [address] PCP - General Family Medicine 08/03/24 Regulatory Affairs Coordinator Relationship Specialty Start Date End Date Unallocated, Arjun Vo MD [facility] [address] [facility] [facility] [place] [address] PCP - General Family Medicine 08/03/24 Regulatory Affairs Coordinator Relationship Specialty Start Date End Date Unallocated, Arjun Vo MD [facility] [address] [facility] [place] [address] PCP - General Family Medicine 08/03/24 Regulatory Affairs Coordinator Relationship Specialty Start Date End Date Unallocated, Arjun Vo MD [facility] [address] [facility] [place] [address] PCP - General Family Medicine 08/03/24 Regulatory Affairs Coordinator Relationship Specialty Start Date End Date Unallocated, Arjun Vo MD [facility] [place] [address] PCP - General Family Medicine 08/03/24 Regulatory Affairs Coordinator Relationship Specialty Start Date End Date Unallocated, Arjun Vo MD [facility] [address] [facility] [place] [address] PCP - General Family Medicine 08/03/24 Regulatory Affairs Coordinator Relationship Specialty Start Date End Date Unallocated, MD Cj [place] [address] [facility] [place] [address] PCP - General Family Medicine 08/03/24 Regulatory Affairs Coordinator Relationship Specialty Start Date End Date Unallocated, Arjun Vo MD [address] [place] [address] PCP - General Family Medicine 08/03/24 Regulatory Affairs Coordinator Relationship Specialty Start Date End Date Unallocated, Arjun Vo MD [address] [facility] [place] [address] PCP - General Family Medicine 08/03/24 Goals [...] BE BASED ON THE PRIMARY CLINICAL RECORDS. [employer] [address] [facility]. provides no warranty or guarantee of the accuracy or completeness of information in this document.
[2025-05-09 14:28] VITALS: BP 134/73; PULSE 86
[2025-05-09 14:43] VITALS: BP 135/75; PULSE 83
== END 2025-05-09 15:05 | disposition home or self-care (01) ==
PROVIDERS: Admitting Provider Obstetrics & Gynecology; PCP Nurse Practitioner Family; Visit Provider Obstetrics & Gynecology
DX: O13.3 Gestational [pregnancy-induced] hypertension without significant proteinuria, third trimester (principal); Z3A.29 29 weeks gestation of pregnancy
CPT/HCPCS: 36415; G0378; G0379

== ENCOUNTER 2025-05-11 10:57 | Outpatient (OUT) | payer BC, OTHER, SELFPAY ==
--- OUTSIDE RECORDS SUMMARY | 2024-06-05 04:30 | XMS_ITS ---
Author Organization [facility] [place] Address [address] [place] [address] Care Team Providers Care Ice Maker Name Role Phone Jennifer Butts Primary Care Provider [phone] Allergies No Known Allergies Results Component Value [...] 06/05/2024 Encounters Encounter Location Date Provider Diagnosis [facility] [address] [place] [address] 06/05/2024 Jennifer Butts Z33.1 and Wellness examination [...] Amber PIZANO MDOB: [birth year] (24 yo F)Acc No.[id number]:06/05/2024 New Patient Patient: Amber MADERA Provider: Lashawn Butts ([facility]), PLANT SCIENCE PROFESSOR :2000 A ge:24 Y S ex:Female Date:06/05/2024 Address:[address] [place] [address] Check In:08:08 AM ESTCheck O ut:08:44 AM [...] year old Job and Family Services , manager star, Child services here to get established Sweetie, [...] (Check Out) true * Provider: Lashawn Butts ([facility]), PLANT SCIENCE PROFESSOR Date: 0 06/05/2024 Generated for Printi ng/Faxing/eTransmitting on: 0 05/11/2025 10:59 AM EDT History and Physical Notes * HPI (History of Present Illness) Category Sub-Category Detail Notes Category Not es General OBGYN Michael , have 2 year old Job and Family Services , manager star, Child services here to get established Sweetie, [...]
--- OUTSIDE RECORDS SUMMARY | 2025-04-30 10:50 | XMS_ITS | Encounter Summary ---
Author Organization [facility] Address [address] [place] [address] Care Team Providers Care Genomics Scientist Name Role Phone Unallocated, Noms Provider Primary Care Provi krissy Reason for Visit * Reason Comments Blood Pressure Check Encounter Details Date Type Department Care Team (Latest Contact Info) Description 04/30/2025 10:50 AM EDT Routine ARJUN [place] OBGYKeegan [address] [facility] [address] Rossana Ramos PA [address] [facility] [address] [place], [facility]11 BP check; -induced hypertension in third trimester ([facility]); Gestational diabetes mellitus (GDM) in third [...] History of blood transfusion Lead poisoning Miscarriage ([facility]) Nonsmoker Post depression HISTORY PAST MEDICAL HISTORY SOCIAL HISTORY Past Medical History: Diagnosis Date Anemia Gestational diabetes ([facility]CC) History of blood transfusion Lead poisoning Miscarriage ([facility]) Nonsmoker Post depression /anxiety Social History Tobacco [...] resulted 2. -induced hypertension in third trimester ([facility]) O13.3 US biophysical profile wnon stress test US OB follow up transabdominal approach labetalol (Normodyne) 300 MG tablet 3. Gestational diabetes mellitus (GDM) in third trimester, gestational diabetes method of control unspecified ([facility]) O24.419 US biophysical profile w non stress [...] PM EDT Routine [facility] [address] [phone] MichaelJose barrios, [address] [address] [place] [place] [address] Scheduled Orders Name Type Priority Associated Diagnoses [...] for hypertension -induced hypertension in third trimester ([facility]) Gestational diabetes mellitus (GDM) in third trimester, gestational diabetes method of control unspecified ([facility]) documented in this encounter Care Teams Genomics Scientist Relationship Specialty Start Date End Date Unallocated, Noms Provider, [address] [place] [address] PCP - General Family Medicine 08/03/24 documented as of this encounter
--- OUTSIDE RECORDS SUMMARY | 2025-05-11 10:59 | XMS_ITS | Encounter Summary ---
Author Organization [facility] Address [address] [place] [address] Care Team Providers Care Leguillon Debeader Name Role Phone Unallocated, Noms Provider Primary Care Provi krissy Encounter Details Date Type Department Care Team (Late st Contact Info) Description 04/27/2025 Clinisync Result Encounter [facility] External Department Unsolicited Rossana Ramos PA [address] [place], [facility]11 Social History Tobacco Use Types Packs/Day [...] PM EDT Routine [facility] [address] [place] [id number] Jose Rodriguez DO [address] [place], [facility]11 documented as of this encounter Procedures [...] [facility] BLOOD ORDERABLES Final Resul t [facility] * (ABNORMAL) ALL CBC WITH AUTO [...] on filedocumented in this encounter Care Teams Leguillon Debeader Relationship Specialty Start Date End Date Unallocated, Noms Provider, [address] [place] [address] PCP - General Family Medicine 08/03/24 documented as of this encounter
--- OUTSIDE RECORDS SUMMARY | 2025-05-11 10:59 | XMS_ITS | Encounter Summary ---
Author Organization [facility] Address [address] [place] [address] Care Team Providers Care Research Electrician Name Role Phone Unallocated, Noms Provider Primary Care Provi krissy Encounter Details Date Type Department Care Team (Late st Contact Info) Description 04/30/2025 Bamboo flowsheet ARJUN PANG [address] [place] [address] Rossana Ramos PA [address] [place], [facility] Social History Tobacco Use Types Packs/Day Years [...] PM EDT Routine [facility]ia PANG [address] [place] [address] Michael, Jose, [address] [place]é [place] [address] documented as of this encounter Visit Diagnoses Not on filedocumented in this encounter Care Teams Research Electrician Relationship Specialty Start Date End Date Unallocated, Noms Provider, MD [address] [place] [address] PCP - General Family Medicine 08/03/24 documented as of this encounter
--- NOTE | 2025-05-11 11:00 | US_ITS ---
[address] [address] Patient Name: VIMAL PIZANO MRN: [id number] date: 2000 Sex: F Assigned Patient Location: [facility] Current Patient Location: [facility] Accession/Order Number: [id number] Exam Date: 05/11/2025 12:01 Report Date: 05/11/2025 12:02 At the request of: COLLIN LEACH Procedure: US OB BPP w non-stress Biophysical profile. Reason for exam: Gestational diabetes COMPARISON: 05/04/2025 TECHNIQUE: Transabdominal imaging of the gravid uterus was obtained. FINDINGS: The library clerical assistant reports a BPP of 8 out of 8. DANYA is normal at 11.9 cm. heart rate 138 bpm. US/US OB BPP w non-stress IMPRESSION: BPP 8 out of 8. Impression dictated by: Bulmaro Arias Jr. DDarline 05/11/2025 12:02 PM Dictation Location: [facility] Electronically authenticated by: [id number] Y Date: 05/11/2025 12:02
--- OUTSIDE RECORDS SUMMARY | 2025-05-11 11:00 | XMS_ITS | Encounter Summary ---
Author Organization [facility] Address [address] [place] [address] Care Team Providers Care Melt Supervisor Name Role Phone Vaishali Zapata MD Primary Care Provider Bipin cheng Unallocated, Noms Provider Primary Care Provi krissy Encounter Details Date Type Department Care Team (Late st Contact Info) Description 06/28/2024 Abstract ARJUN PANG [address] [address] Jose Rodriguez DO [address], [place] [address] Social History Tobacco Use Types Packs/Day Years [...] 2:40 PM EDT Routine ARJUN PANG [address] [address] Jose Rodriguez DO [address], [facility]11 documented as of this encounter Visit Diagnoses Not on filedocumented in this encounter Care Teams Melt Supervisor Relationship Specialty Start Date End Date Vaishali Zapata MD [address] [place] [place] [address] PCP - General Family Medicine 02/04/23 08/02/24 Unallocated, Noms Provider, [address] [place] [address] PCP - General Family Medicine 08/03/24 documented as of this encounter
--- OUTSIDE RECORDS SUMMARY | 2025-05-11 11:00 | XMS_ITS | Encounter Summary ---
Author Organization [facility] Address [address] [place] [address] Care Team Providers Care Hot Header Operator Name Role Phone Unallocated, Noms Provider Primary Care Provi krissy Encounter Details Date Type Department Care Team (Late st Contact Info) Description 08/10/2024 Abstract ARJUN P[place] [address] Jose Rodriguez DO [address], [place] [address] Social History Tobacco Use Types Packs/Day Years [...] Routine ARJUN PANG [place] [address] Jose Rodriguez DO [address], [facility]11 documented as of this encounter Visit Diagnoses Not on filedocumented in this encounter Care Teams Hot Header Operator Relationship Specialty Start Date End Date Unallocated, Noms Provider, [address] [place] [address] PCP - General Family Medicine 08/03/24 documented as of this encounter
--- OUTSIDE RECORDS SUMMARY | 2025-05-11 11:00 | XMS_ITS | Encounter Summary ---
Author Organization [facility] Address [address] [place] [address] Care Team Providers Care Reaming Machine Operator For Plastic Name Role Phone Unallocated, Noms Provider Primary Care Provi krissy Encounter Details Date Type Department Care Team (Late st Contact Info) Description 05/04/2025 Telephone [facility] [address] [employer] [place] [address] Jose Rodriguez DO [address] Josué [place], [facility]11 Social History Tobacco Use Types [...] PM EDT Routine [facility] [place] [facility] [address] [place] [phone] Jose Rodriguez DO [address] [facility] [place] [address] [place] [address] documented as of this encounter Visit Diagnoses Diagnosis Gestational diabetes mellitus (GDM), antepartum, gestational diabetes method of control unspecified ([facility]) Elevated glucose tolerance test Impaired glucose tolerance test documented in this encounter Care Teams Reaming Machine Operator For Plastic Relationship Specialty Start Date End Date Unallocated, [place] [address] PCP - General Family Medicine 08/03/24 documented as of this encounter
--- OUTSIDE RECORDS SUMMARY | 2025-05-11 11:00 | XMS_ITS | Encounter Summary ---
Author Organization [facility] Address [address] [place] [address] Care Team Providers Care Open Hearth Helper Name Role Phone Vaishali Zapata MD Primary Care Provider Bipin cheng Unallocated, Noms Provider Primary Care Provi krissy Encounter Details Date Type Department Care Team (Late st Contact Info) Description 08/02/2024 Abstract ARJUN PANG [address] [place] [address] Jose Rodriguez DO [address] [place], [place] [address] Social History Tobacco Use Types Packs/Day Years [...] 2:40 PM EDT Routine ARJUN PANG [address] [place] [address] Jose Rodriguez DO [address], [id number] documented as of this encounter Visit Diagnoses Not on filedocumented in this encounter Care Teams Open Hearth Helper Relationship Specialty Start Date End Date Vaishali Zapata MD [address] [place] [address] PCP - General Family Medicine 02/04/23 08/02/24 Unallocated, Noms Provider, [address] [place] [address] PCP - General Family Medicine 08/03/24 documented as of this encounter
--- OUTSIDE RECORDS SUMMARY | 2025-05-11 11:00 | XMS_ITS | Encounter Summary ---
Author Organization [facility] Address [address] [place] [address] Care Team Providers Care Air Lift Operator Name Role Phone Unallocated, Noms Provider Primary Care Provi krissy Encounter Details Date Type Department Care Team (Late st Contact Info) Description 08/10/2024 Clinisync Result Encounter NOMS External Department Unsolicited Mackenzie Rodriguez DO [address] [place], [facility]11 Social History Tobacco Use Types [...] Routine [facility] [address] [place] [phone] Mackenzie Rodriguez DO [address] [place] [address] documented as of this encounter Procedures Procedure Name Priority Date/Time Associated Diagnosis Comments US OB TRANSVAGINAL 08/10/2024 8: 44 AM EST documented in this encounter Results * US OB TRANSVAGINAL (08/10/2024 8:44 AM EST) Anatomical Region Laterality Modality Other 08/10/2024 8:44 AM EST Narrative 08/10/2024 8:47 [place] [address] Ultrasound Report Signed Patient: AMBER PIZANO MR#: [id number] : 2000 Acct:[id number] Age/Sex: 24 / F ADM Date: 08/10/24 Loc: SURGOUT Attending Dr: Mackenzie Rodriguez D.O. Ordering Physician: Mackenzie Rodriguez D.O. Date of Service: 08/10/24 Procedure(s): US OB transvaginal Accession Number(s): [id number] cc: LUIS SEE ; Mackenzie Rodriguez D.O. The [place] [id number] Patient Name: AMBER PIZANO MRN: [id number] date: 2000 Sex: F Assigned Patient Location: [facility] Current Patient Location: [facility] Accession/Order Number: [id number] Exam Date: 08/10/2024 08:10 Report Date: 08/10/2024 [...] M.D. Signed By: 08/10/24846 DD/ 3 TD/TT: Mud Car Worker: Procedure Note Radiology, Radiologist, MD - 08/10/2024 [place] [address] Ultrasound Report Signed Patient: AMBER PIZANO MMR#: [id number] : 2000Acct:[id number] Age/Sex: 24 / FADM Date: 08/10/24 Loc: SURGOUT Attending Dr: Mackenzie Rodriguez D.O. Ordering Physician: Macknezie Rodriguez D.O. Date of Service: 08/10/24 Procedure(s): US OB transvaginal Accession Number(s): [id number] cc: LUIS SEE ; Mackenzie Rodriguez D.O. [facility] [place] [id number] Patient Name: AMBER PIZANO MRN: [id number] date: 2000 Sex: F Assigned Patient Location: [facility] Current Patient Location: [facility] Accession/Order Number: [id number] Exam Date: 08/10/2024 08:10 Report Date: 08/10/2024 [...] Lavon Herrera M.D. Signed By:08/10/2447 DD/ TD/TT: Mud Car Worker: us Mackenzie Michael DO [facility] Final Result documented in this encounter Visit Diagnoses Not on filedocumented in this encounter Care Teams Air Lift Operator Relationship Specialty Start Date End Date Unallocated, Noms Provider, [address] [place] [address] PCP - General Family Medicine 08/03/24 documented as of this encounter
--- OUTSIDE RECORDS SUMMARY | 2025-05-11 11:00 | XMS_ITS | Encounter Summary ---
Author Organization [facility] Address [address] [place] [address] Care Team Providers Care Ruffler Name Role Phone Vaishali Chaidez MD Primary Care Provider Bipin cheng Unallocated, Noms Provider Primary Care Provi krissy Encounter Details Date Type Department Care Team (Late st Contact Info) Description 06/29/2024 Clinisync Result Encounter [facility]OM[facility] External Department Unsolicited Mackenzie Rodriguez, DO [address] [place], [place] [id number] Social History Tobacco Use Types Packs/Day Years [...] Routine [facility] [address] [place] [phone] Mackenzie Rodriguez DO [address] [place] [address] documented as of this encounter Procedures Procedure Name Priority Date/Time Associated Diagnosis Comments US OB TRANSVAGINAL 06/29/2024 9: 11 AM EDT documented in this encounter Results * US OB TRANSVAGINAL (06/29/2024 9:11 AM EDT) Anatomical Region Laterality Modality Other 06/29/2024 9:11 AM EDT Narrative 06/29/2024 9:14 [place] [address] Ultrasound Report Signed Patient: Vimal Pizano MR#: [id number] : 2000 Acct:[id number] Age/Sex: 24 / F ADM Date: 06/29/24 Loc: NOMS Attending Dr: Mackenzie Rodriguez D.O. Ordering Physician: Mackenzie Rodriguez D.O. Date of Service: 06/29/24 Procedure(s): US OB transvaginal Accession Number(s): [id number] cc: Mackenzie Rodriguez D.O.; VAISHALI CHAIDEZ [place] [address] Patient Name: VIMAL PIZANO MRN: [id number] date: 2000 Sex: F Assigned Patient Location: [facility] Current Patient Location: [facility] Accession/Order Number: [id number] Exam Date: 06/29/2024 08:37 Report Date: 06/29/2024 [...] M.D. Signed By: 06/29/24913 DD/ 0 TD/TT: Local Company Truck Driver: Procedure Note Radiology, Radiologist, MD - 06/29/2024 [place] [address] Ultrasound Report Signed Patient: Vimal Pizano MMR#: [id number] : 2000Acct:[id number] Age/Sex: 24 / FADM Date: 06/29/24 Loc: NOMS Attending Dr: Mackenzie Rodriguez D.O. Ordering Physician: Mackenzie Rodriguez D.O. Date of Service: 06/29/24 Procedure(s): US OB transvaginal Accession Number(s): [id number] cc: Mackenzie Rodriguez D.O.; VAISHALI CHAIDEZ [place] [address] Patient Name: VIMAL PIZANO MRN: [id number] date: 2000 Sex: F Assigned Patient Location: [facility] Current Patient Location: [facility] Accession/Order Number: [id number] Exam Date: 06/29/2024 08:37 Report Date: 06/29/2024 [...] Herrera M.D. Signed By:06/29/24913 DD/ 0 TD/TT: Local Company Truck Driver: us Mackenzie Michael DO [facility] Final Result documented in this encounter Visit Diagnoses Not on filedocumented in this encounter Care Teams Ruffler Relationship Specialty Start Date End Date Vaishali Chaidez MD [address] [place] [address] PCP - General Family Medicine 02/04/23 08/02/24 Unallocated, Noms Provider, [address] [place] [address] PCP - General Family Medicine 08/03/24 documented as of this encounter
--- OUTSIDE RECORDS SUMMARY | 2025-05-11 11:00 | XMS_ITS | Encounter Summary ---
Author Organization [facility] Address [address] [place] [address] Care Team Providers Care Compressed Gases Tester Name Role Phone Unallocated, Noms Provider Primary Care Provi krissy Encounter Details Date Type Department Care Team (Late st Contact Info) Description 08/10/2024 Abstract ARJUN PANG [facility] [place] [address] Jose Rodriguez DO [address] [place], [place] [address] Social History Tobacco Use Types Packs/Day Years [...] 05/14/2025 2:40 PM EDT Routine ARJUN PANG [facility] [place] [address] Jose Rodriguez DO [address] [place], [facility]11 documented as of this encounter Visit Diagnoses Not on filedocumented in this encounter Care Teams Compressed Gases Tester Relationship Specialty Start Date End Date Unallocated, Noms Provider, [address] [place] [address] PCP - General Family Medicine 08/03/24 documented as of this encounter
--- OUTSIDE RECORDS SUMMARY | 2025-05-11 11:00 | XMS_ITS | Encounter Summary ---
Author Organization [facility] Address [address] [place] [address] Care Team Providers Care Correctional Case Records Supervisor Name Role Phone Vaishali Zapata MD Primary Care Provider Bipin cheng Unallocated, Noms Provider Primary Care Provi krissy Encounter Details Date Type Department Care Team (Late st Contact Info) Description 06/29/2024 Abstract ARJUN PANG [address] [place] [address] Jose Rodriguez DO [address] [place], [place] [address] Social History Tobacco Use Types Packs/Day Years [...] 2:40 PM EDT Routine ARJUN PANG [address] [place] [address] Jose Rodriguez DO [address] [place], [facility]11 documented as of this encounter Visit Diagnoses Not on filedocumented in this encounter Care Teams Correctional Case Records Supervisor Relationship Specialty Start Date End Date Vaishali Zapata MD [address] [place] [address] PCP - General Family Medicine 02/04/23 08/02/24 Unallocated, Noms Provider, [address] [place] [address] PCP - General Family Medicine 08/03/24 documented as of this encounter
--- OUTSIDE RECORDS SUMMARY | 2025-05-11 11:00 | XMS_ITS | Encounter Summary ---
Author Organization [facility] Address [address] [place] [address] Care Team Providers Care Data Clerk Name Role Phone Unallocated, Noms Provider Primary Care Provi krissy Encounter Details Date Type Department Care Team (Late st Contact Info) Description 05/04/2025 Clinisync Result Encounter NOMS External Department Unsolicited Rossana Ramos PA [address] [place], [facility]11 Social History Tobacco Use Types Packs/Day [...] PM EDT Routine [facility] [address] [place] [address] Jose Rodriguez DO [address] [place], [facility]11 documented as of this encounter Procedures [...] BISWAS CLINISYPROSPER Final Result Performing Organization Address [facility] Co de Phone Number [facility] TB * [facility] AST (05/04/2025 7:23 AM EDT) ASPARTATE AMINO TRANSFERASE 23 15 - 37 U/L TBH 05/04/2025 7:23 AM EDT 05/04/2025 7:30 AM EDT Narrative [facility]IN[facility] - 05/04/2025 8:21 AM EDT us Rossana ROSENBERGISYPROSPER Final Result Performing Organization Address [facility] de Phone Number [facility] TB * ALL URIC ACID (05/04/2025 7:23 AM EDT) URIC ACID 3.7 2.6 - 6.0 mg/dL TB 05/04/2025 7:23 AM EDT 05/04/2025 7:30 AM EDT Narrative CLINIS[facility]NC - 05/04/2025 8:21 AM EDT us Rossana ROSENBERGISYPROSPER Final Result Performing Organization Address [facility] Co de Phone Number [facility] TB * (ABNORMAL) [facility]H CREATININE (05/04/2025 7:23 AM EDT) CREATININE 0.37(L) 0.55 - 1.02 mg/dL TBH TBH EGFR-AF ERITREAN >60 >=60 mL/min/1.7 3m 2 TBH TBH EGFR-NON AF ERITREAN >60 >=60 mL/min/1.7 3m 2 TBH 05/04/2025 7:23 AM EDT 05/04/2025 7:30 AM EDT Narrative CLINISYNC - 05/04/2025 8:21 AM EDT us Rossana BISWAS CLINISYPROSPER Final Result Performing Organization Address [facility] de Phone Number CLINBARRETTNC [facility] * ALL BUN (05/04/2025 7:23 AM EDT) BLOOD UREA NITROGEN 8.0 7.0 - 18.0 mg/dL TBH 05/04/2025 7:23 AM EDT 05/04/2025 7:30 AM EDT Narrative CLINISYNC - 05/04/2025 8:21 AM EDT us Rossana ORR Final Result Performing Organization Address [facility] de Phone Number CLINBARRETTFORMERLY [facility] * [facility] APTT (05/04/2025 7:23 AM EDT) PARTIAL THROMBOPLASTIN TIME 25.7 22.3 - 36.2 sec TB 05/04/2025 7:23 AM EDT 05/04/2025 7:30 AM EDT Narrative CLINISYNC - 05/04/2025 8:04 AM EDT Rossana ORR Final Result Performing Organization Address [facility] de Phone Number CLINALICE [facility] * SRMCOH PROTHROMBIN TIME INR W/O [...] EDT us Rossana BISWAS CLINALICE Final Result [facility] documented in this encounter Visit Diagnoses Not on filedocumented in this encounter Care Teams Data Clerk Relationship Specialty Start Date End Date Unallocated, Noms Provider, [address] [place] [address] PCP - General Family Medicine 08/03/24 documented as of this encounter
--- OUTSIDE RECORDS SUMMARY | 2025-05-11 11:00 | XMS_ITS | Clinical Summary ---
Author Organization [email or web address] tem Address [id number] [address] [place] [address] Care Team Providers Care Topographical Engineer Name Role Phone Unavailable Primary Care Provider Unavailabl e Allergies No known active allergies Medications loratadine (CLARITIN) 10 mg tablet Take 1 tablet (10 mg total) by mouth in the morning. Active 115/iron/folic acid ( 19 ORAL) Take by mouth. Active progesterone (PROMETRIUM) 100 mg capsule Take 1 capsule (100 mg total) by mouth in the morning and at bedtime. Active labetaloL (NORMODYNE) 100 mg tablet Take 1 tablet (100 mg total) by mouth in the morning and 1 tablet (100 mg total) before bedtime. Active Encounters Date Type Department Care Team Description 05/10/2025 Abstract Maternal- Medicine at [facility] [address] [place] [address] External, Scanning Provider from Last 3 Months Family History Medical History Relation Name Comments Rheum arthritis Father Relation Name Status Comments Father Social History Tobacco Use Types Packs/Day Years Used Date Smoking Tobacco: Never Tobacco Cessation:Counseling Given: Not Answered Alcohol Use Standard Drinks/Week Comments Not Currently 0 (1 standard drink = 0.6 oz pur e alcohol) Childcare Answer Date Recorded Childcare Unknown 03/06/2019 Employment Answer Date Recorded Employment Unknown 03/06/2019 Estimated Date of Delivery Comme nts Yes 07/22/2025 Based on last me nstrual period of 10/15/2024 Sex and Gender Information Value Date Recorded Sex Assigned at Not on file Legal Sex Female 6:04 PM EDT Gender Identity Not on file Sexual Orientation Not on file Plan of Treatment Upcoming Encounters Date Type Department Care Team (Late st Contact Info) Description 05/13/2025 1:30 PM EDT Support Visit Maternal- Medicine at [facility] [address] [place] [facility] [place] [phone] Marjorie Rico, RN [address], [address] [place] [address] Xenia Rayo, RD [address], [address] [place] [address] 06/04/2025 1:00 PM EDT Appointment [facility] - Ultrasound [address] [place] [phone] Jose Rodriguez, [address] Josué [address] [place], [place] [phone] Health Maintenance Due Date Last Done Comments Depression Screening 2013 Tobacco Screening 2013 Adult BMI Screening 2019 DTaP,Tdap and Td Vaccines (1 - Tdap) 2020 Influenza Vaccine 05/27/2025 Pap Smear 02/21/2028 02/20/2025 Medical Devices Not on file Procedures Procedure Name Priority Date/Time Associated Diagnosis Comments GLUCOSE TOLERANCE, 3 HOURS Routine 05/04/2025 GLUCOSE TOLERANCE, FASTING Routine 05/04/2025 GLUCOSE TOLERANCE, 1 HOUR Routine 05/04/2025 SECOND HOUR GLUCOSE TOLERANCE 100 GM LOAD Routine 05/04/2025 GLU 1H POST 50G LOAD Routine 04/27/2025 from Last 3 Months Results * 2nd hr Glucose Tolerance 100 gm load (05/04/2025) Glucose Tolerance Test 2 Hour 186 MANUALLY TRANSCRIBED RESULTS Blood Venous blood / Unknown us Not In System Ref Prov LAB BLOOD ORDERABLES Kayli l Result Performing Organization Address City/[facility]/ZIP Co de Phone Number MANUALLY TRANSCRIBED RESULTS * Glucose tolerance, 1 hour (05/04/2025) Glucose Tolerance Test 1 Hour 234 MANUALLY TRANSCRIBED RESULTS Blood Venous blood / Unknown us Not In System Ref Prov LAB BLOOD ORDERABLES Kayli l Result Performing Organization Address [facility] Co de Phone Number MANUALLY TRANSCRIBED RESULTS * Glucose tolerance, 3 hours (05/04/2025) Glucose Tolerance Test 3 Hour 133 MANUALLY TRANSCRIBED RESULTS Blood Venous blood / Unknown us Not In System Ref Prov LAB BLOOD ORDERABLES Kayli l Result Performing Organization Address [facility] Co de Phone Number MANUALLY TRANSCRIBED RESULTS * Glucose, tolerance fasting (05/04/2025) Glucose Tolerance Test Fasting 108 MANUALLY TRANSCRIBED RESULTS Blood Venous blood / Unknown us Not In System Ref Prov LAB BLOOD ORDERABLES Kayli l Result Performing Organization Address [facility] Co de Phone Number MANUALLY TRANSCRIBED RESULTS * Glucose 1h post 50g load (04/27/2025) Glucose, 1 hr PP 50GM dose 171 MANUALLY TRANSCRIBED RESULTS Blood Venous blood / Unknown us Not In System Ref Prov LAB BLOOD ORDERABLES Kayli l Result Performing Organization Address [facility] Co de Phone Number MANUALLY TRANSCRIBED RESULTS from Last 3 Months Insurance [employer]
--- OUTSIDE RECORDS SUMMARY | 2025-05-11 11:00 | XMS_ITS | Encounter Summary ---
Author Organization [facility] Address [address] [place] [address] Care Team Providers Care Cabinetmaker Supervisor Name Role Phone Unallocated, Noms Provider Primary Care Provi krissy Encounter Details Date Type Department Care Team (Late Contact Info) Description 05/08/2025 Abstract ARJUN PANG [facility] [place] [address] Jose Rodriguez DO [address], [facility]11 Social History [...] EDT Routine NOMMay PANG [address] [place] [address] Jose Rodriguez DO [address] [facility] [address] [place] [place] [address] documented as of this encounter Visit Diagnoses Not on filedocumented in this encounter Care Teams Cabinetmaker Supervisor Relationship Specialty Start Date End Date Unallocated, Noms Provider, [place] [address] PCP - General Family Medicine 08/03/24 documented as of this encounter
--- OUTSIDE RECORDS SUMMARY | 2025-05-11 11:00 | XMS_ITS | Encounter Summary ---
Author Organization [facility] Address [address] [place] [address] Care Team Providers Care Stave Log Ripsaw Operator Name Role Phone Unallocated, Noms Provider Primary Care Provi krissy Encounter Details Date Type Department Care Team (Late st Contact Info) Description 05/06/2025 Clinisync Result Encounter NOMS External Department Unsolicited Rossana Ramos PA [address] [place], [facility]11 Social History Tobacco Use [...] Description 05/14/2025 2:40 PM EDT Routine NOMS aRfia OBGYN [address] [place] [phone] Jose Rodriguez DO [address] [facility] [address] [place], [facility]11 documented as of this encounter Procedures Procedure [...] EDT us Rossana BISWAS CLINISYNC Final Result [facility] documented in this encounter Visit Diagnoses Not on filedocumented in this encounter Care Teams Stave Log Ripsaw Operator Relationship Specialty Start Date End Date Unallocated, Noms Provider, [address] [place] [address] PCP - General Family Medicine 08/03/24 documented as of this encounter
--- OUTSIDE RECORDS SUMMARY | 2025-05-11 11:00 | XMS_ITS | Encounter Summary ---
Author Organization [employer] [facility] tem Address [id number] [address] [place] [address] Care Team Providers Care Vp Analysis Name Role Phone Unavailable Primary Care Provider Unavailabl e Encounter Details Date Type Department Care Team (Late Contact Info) Description 05/10/2025 Abstract Maternal- Medicine at [facility] [address] [place] [phone] External, Scanning Provider Social History Tobacco Use Types Packs/Day Years [...] Department Care Team (Late Contact Info) Description 05/13/2025 1:30 PM EDT Support Visit Maternal- Medicine at [facility] [address] [place] [address] Marjorie Rico, RN [address], [address] [place] [address] [phone] Xenia Rayo, ALEC [address], [address] [place] [id number] 06/04/2025 1:00 PM EDT Appointment [facility] - Ultrasound [address] [place] [phone] Jose Rodriguez, DO [address] [facility] [place] [place] [address] documented as of this encounter Procedures Procedure Name Priority Date/Time Associated Diagnosis Comments SECOND HOUR GLUCOSE TOLERANCE 100 GM LOAD Routine 05/04/2025 GLUCOSE TOLERANCE, 1 HOUR Routine 05/04/2025 GLUCOSE TOLERANCE, 3 HOURS Routine 05/04/2025 GLUCOSE TOLERANCE, FASTING Routine 05/04/2025 GLU 1H POST 50G LOAD Routine 04/27/2025 FREE CELL DNA (NON-[facility] SEND OUT) Routine 01/05/2025 UNLISTED LAB TEST Routine 01/05/2025 HEMOGLOBIN A1C Routine 01/05/2025 documented in this encounter Results * Glucose tolerance, 3 hours (05/04/2025) Glucose Tolerance Test 3 Hour 133 MANUALLY TRANSCRIBED RESULTS Blood Venous blood / Unknown us Not In System Ref Prov LAB BLOOD ORDERABLES Kayli l Result MANUALLY TRANSCRIBED RESULTS * Glucose, tolerance fasting (05/04/2025) Glucose Tolerance Test Fasting 108 MANUALLY TRANSCRIBED RESULTS Blood Venous blood / Unknown us Not In System Ref Prov LAB BLOOD ORDERABLES Kayli l Result MANUALLY TRANSCRIBED RESULTS * Glucose tolerance, 1 hour (05/04/2025) Glucose Tolerance Test 1 Hour 234 MANUALLY TRANSCRIBED RESULTS Blood Venous blood / Unknown us Not In System Ref Prov LAB BLOOD ORDERABLES Kayli l Result Performing Organization Address [facility] de Phone Number MANUALLY TRANSCRIBED RESULTS * 2nd hr Glucose Tolerance 100 gm load (05/04/2025) Glucose Tolerance Test 2 Hour 186 MANUALLY TRANSCRIBED RESULTS Blood Venous blood / Unknown us Not In System Ref Prov LAB BLOOD ORDERABLES Kayli l Result Performing Organization Address [facility] de Phone Number MANUALLY TRANSCRIBED RESULTS * Glucose 1h post 50g load (04/27/2025) Glucose, 1 hr PP 50GM dose 171 MANUALLY TRANSCRIBED RESULTS Blood Venous blood / Unknown us Not In System Ref Prov LAB BLOOD ORDERABLES Kayli l Result Performing Organization Address [facility] de Phone Number MANUALLY TRANSCRIBED RESULTS * Unlisted Lab Test (01/05/2025) 01/05/2025 us Not In System Ref Prov LAB BLOOD ORDERABLES Kayli l Result Performing Organization Address [facility] de Phone Number MANUALLY TRANSCRIBED RESULTS * Free Cell DNA (Non-[facility] Send Out) (01/05/2025) 01/05/2025 us Not In System Ref Prov LAB BLOOD ORDERABLES Kayli l Result Performing Organization Address [facility] de Phone Number MANUALLY TRANSCRIBED RESULTS * Hemoglobin A1c (01/05/2025) Hemoglobin A1C 5.0 4.0 - 6.0 % MANUALLY TRANSCRIBED RESULTS Blood Venous blood / Unknown us Scanning Provider External LAB BLOOD ORDERABLES Final Result MANUALLY TRANSCRIBED RESULTS documented in this encounter Visit Diagnoses Not on filedocumented in this encounter
--- OUTSIDE RECORDS SUMMARY | 2025-05-11 11:00 | XMS_ITS | Encounter Summary ---
Author Organization [facility] Address [address] [place] [address] Care Team Providers Care Insole And Outsole Splitter Name Role Phone Unallocated, Noms Provider Primary Care Provi krissy Encounter Details Date Type Department Care Team (Late st Contact Info) Description 05/07/2025 Results Follow-Up ARJUN [place] [facility] [address] [place] [address] Glenna Butler LPN [address] [place] [address] ALL CBC WITH AUTO DIFF, [...] OBGYN [address] [place] [phone] Jose Rodriguez DO [address] [facility] [address] [place] [address] documented as of this encounter Visit Diagnoses Not on filedocumented in this encounter Care Teams Insole And Outsole Splitter Relationship Specialty Start Date End Date Unallocated, Arjun Vo MD [address] [place] [address] PCP - General Family Medicine 08/03/24 documented as of this encounter
--- OUTSIDE RECORDS SUMMARY | 2025-05-11 11:00 | XMS_ITS | Encounter Summary ---
Author Organization [facility] Address [address] [place] [address] Care Team Providers Care Mercury Recoverer Name Role Phone Unallocated, Noms Provider Primary Care Provi krissy Encounter Details Date Type Department Care Team (Late st Contact Info) Description 05/04/2025 Clinisync Result Encounter [facility] External Department Unsolicited Collin Leach PA [address] [place], [facility]11 Social History [...] PM EDT Routine [facility] [address] [facility] [place] [phone] Jose Rodriguez DO [address] [place], [facility]11 documented as of this encounter Procedures Procedure Name Priority Date/Time Associated Diagnosis Comments US OB BPP W NON-STRESS 05/04/2025 12:09 PM EDT documented in this encounter Results * US OB BPP W NON-STRESS (05/04/2025 12:09 PM EDT) Anatomical Region Laterality Modality Other 05/04/2025 12:0 9 PM EDT Narrative 05/04/2025 12:12 [place] [address] Ultrasound Report Signed Patient: VIMAL PIZANO MR#: [id number] : 2000 Acct:[id number] Age/Sex: 25 / F ADM Date: 05/04/25 Loc: [facility] 250-[address]: Collin Leach Ordering Physician: Collin Leach Date of Service: 05/04/25 Procedure(s): US OB BPP w non-stress Accession Number(s): [id number] cc: Collin Leach; LUIS SEE [address] [address] Patient Name: VIMAL PIZANO MRN: [id number] date: 2000 Sex: F Assigned Patient Location: [facility] Current Patient Location: [facility] Accession/Order Number: [id number] Exam Date: 05/04/2025 12:08 Report Date: 05/04/2025 12:09 At the request of: COLLIN LEACH Procedure: US OB BPP w non-stress Biophysical profile. Reason for exam: Gestational diabetes COMPARISON: None TECHNIQUE: Transabdominal imaging of the gravid uterus was obtained. FINDINGS: The window/distribution clerk reports a BPP of 8 out of 8. DANYA is normal at 12.4 cm. heart rate 150 bpm. US/US OB BPP w non-stress IMPRESSION: BPP 8 out of 8. Impression dictated by: Bulmaro Arias Jr., D.O. 05/04/2025 12:09 PM Dictation Location: [facility]18 Electronically authenticated by: [id number] Y Date: 05/04/2025 12:09 Dictated By: Bulmaro Arias M.D. Signed By: 05/04/25 1212 DD/ 1209 TD/TT: Agricultural Services Director: Procedure Note Radiology, Radiologist, - 05/04/2025 [place] [address] Ultrasound Report Signed Patient: VIMAL PIZANO MMR#: [id number] : 2000Acct:[id number] Age/Sex: 25 / FADM Date: 05/04/25 Loc: [place] [address]: Collin Leach Ordering Physician: Collin Leach Date of Service: 05/04/25 Procedure(s): US OB BPP w non-stress Accession Number(s): [id number] cc: Collin Leach; LUIS SEE [place] [id number] Patient Name: VIMAL PIZANO MRN: [id number] date: 2000 Sex: F Assigned Patient Location: [facility] Current Patient Location: [facility] Accession/Order Number: [id number] Exam Date: 05/04/2025 12:08 Report Date: 05/04/2025 12:09 At the request of: COLLIN LEACH Procedure: US OB BPP w non-stress Biophysical profile. Reason for exam: Gestational diabetes COMPARISON: None TECHNIQUE: Transabdominal imaging of the gravid uterus was obtained. FINDINGS: The window/distribution clerk reports a BPP of 8 out of 8. DANYA is normal at12.4 cm. heart rate 150 bpm. US/US OB BPP w non-stress IMPRESSION: BPP 8 out of 8. Impression dictated by: Bulmaro Arias Jr., D.O. 05/04/2025 12:09 PM Dictation Location: [facility]-18 Electronically authenticated by: [id number] Y Date: 2:09 Dictated By: Bulmaro Arias M.D. Signed By:05/04/25 1212 DD/ 1209 TD/TT: Agricultural Services Director: us Collin [facility] Final Result documented in this encounter Visit Diagnoses Not on filedocumented in this encounter Care Teams Mercury Recoverer Relationship Specialty Start Date End Date Unallocated, Noms Provider, [address] [place] [address] PCP - General Family Medicine 08/03/24 documented as of this encounter
--- OUTSIDE RECORDS SUMMARY | 2025-05-11 11:00 | XMS_ITS | Encounter Summary ---
Author Organization [facility] Address [address] [place] [address] Care Team Providers Care Soaking Room Operator Name Role Phone Unallocated, Noms Provider Primary Care Provi krissy Encounter Details Date Type Department Care Team (Late st Contact Info) Description 08/10/2024 Abstract ARJUN PANG [facility] [place] [address] Jose Rodriguez DO [address] [place], [place] [address] Social History Tobacco Use Types Packs/Day Years [...] PANG [facility] [place] [address] Jose Rodriguez DO [address] [place], [facility] documented as of this encounter Visit Diagnoses Not on filedocumented in this encounter Care Teams Soaking Room Operator Relationship Specialty Start Date End Date Unallocated, Noms Provider, [address] [place] [address] PCP - General Family Medicine 08/03/24 documented as of this encounter
--- OUTSIDE RECORDS SUMMARY | 2025-05-11 11:00 | XMS_ITS | Encounter Summary ---
Author Organization [facility] Address [address] [place] [address] Care Team Providers Care Clerical Proofreader Name Role Phone Unallocated, Noms Provider Primary Care Provi krissy Encounter Details Date Type Department Care Team (Late st Contact Info) Description 05/04/2025 Clinisync Result Encounter [facility] External Department Unsolicited Collin Leach PA [address] [place], [facility]11 Social History Tobacco Use Types Packs/Day [...] PM EDT Routine [facility] [address] [facility] [phone] Jose Rodriguez DO [address] [place], [facility]11 documented as of this encounter Procedures Procedure Name Priority Date/Time Associated Diagnosis Comments US OB GROWTH 05/04/2025 12:08 PM EDT documented in this encounter Results * US OB GROWTH (05/04/2025 12:08 PM EDT) Anatomical Region Laterality Modality Other 05/04/2025 12:0 8 PM EDT Narrative 05/04/2025 12:11 [place] [address] Ultrasound Report Signed Patient: VIMAL PIZANO MR#: [id number] : 2000 Acct:[id number] Age/Sex: 25 / F ADM Date: 05/04/25 Loc: [facility] 250-[address]: Collin Leach Ordering Physician: Collin Leach Date of Service: 05/04/25 Procedure(s): US OB growth Accession Number(s): [id number] cc: Collin Leach; LUIS SEE [place] [id number] Patient Name: VIMAL PIZANO MRN: [id number] date: 2000 Sex: F Assigned Patient Location: [facility] Current Patient Location: [facility] Accession/Order Number: [id number] Exam Date: 05/04/2025 12:06 Report Date: 05/04/2025 [...] Jr., D.O. 05/04/2025 12:08 PM Dictation Location: [facility] Electronically authenticated by: [id number] Y Date: 05/04/2025 12:08 Dictated By: Bulmaro Arias M.D. Signed By: 05/04/25 1211 DD/ 1208 TD/TT: Assistant Site Manager: Procedure Note Radiology, Radiologist, MD - 05/04/2025 [place] [address] Ultrasound Report Signed Patient: VIMAL PIZANO MMR#: [id number] : 2000Acct:[id number] Age/Sex: 25 / FADM Date: 05/04/25 Loc: [facility] 250-[address]: Collin Leach Ordering Physician: Collin Leach Date of Service: 05/04/25 Procedure(s): US OB growth Accession Number(s): [id number] cc: Collin Leach; LUIS SEE [place] [address] Patient Name: VIMAL PIZANO MRN: [id number] date: 2000 Sex: F Assigned Patient Location: [facility] Current Patient Location: [facility] Accession/Order Number: [id number] Exam Date: 05/04/2025 12:06 Report Date: 05/04/2025 [...] Jr., D.O. 05/04/2025 12:08 PM Dictation Location: [place] [address] Electronically authenticated by: [id number] Y Date: 2:08 Dictated By: Bulmaro Arias M.D. Signed By:05/04/25 1211 DD/ 1208 TD/TT: Assistant Site Manager: us Collin [facility] Final Result documented in this encounter Visit Diagnoses Not on filedocumented in this encounter Care Teams Clerical Proofreader Relationship Specialty Start Date End Date Unallocated, Noms Provider, [address] [place] [address] PCP - General Family Medicine 08/03/24 documented as of this encounter
--- OUTSIDE RECORDS SUMMARY | 2025-05-11 11:01 | XMS_ITS | CCD ---
Author Organization [facility] Care Team Providers Care Cna Ltc Name Role Phone MICHAEL ., DR MANN Consulting Unavailable MICHAEL ., DR MANN Admitting Unavailable MICHAEL ., DR MANN Attending Unavailable MISC, DR DOMINIQUE Primary Care Unavailable MICHAEL ., DR MANN Admitting Unavailable IMCHAEL ., DR MANN Attending Unavailable MISC, DR [...] Unavailable MICHAEL ., DR MANN Attending [facility] DOMINIQUE Primary Care Unavailable KARASIK ., [...] Unavailable MISC, DR DOMINIQUE Primary Care Unavailable [place], DR COCO Danielle Consulting Unavailable MICHAEL ., DR MANN Consulting Unavailable MICHAEL ., DR MANN Admitting Unavailable MICHAEL ., DR MANN Attending Unavailable MISC, DR DOMINIQUE Primary Care Unavailable MICHAEL ., DR MANN Consulting Unavailable MICHAEL ., DR MANN Admitting Unavailable MICHAEL ., DR MANN Attending Unavailable MISC, DR DOMINIQUE Primary Care Unavailable [place], DR COCO Danielle Consulting Unavailable MICHAEL ., [...] Unavailable MICHAEL ., DR MANN Consulting Unavailable MIS, DR DOMINIQUE Primary Care Unavailable MICHAEL ., DR MANN Consulting Unavailable CARIDAD NGUYEN Admitting Unavailable CARIDAD NGUYEN Attending Unavailable DONALD, DR ESTEFANY Zurita Consulting Unavailable CARIDAD NGUYEN Consulting Unavailable Jennifer Huston Unavailable JEFFERY Huston Attending Provider Benny GREENBERG, Vaishali Chávez Primary Care Provider Unavai lable NO FAMILY, PHYSICIAN Primary Care Provider Unava ilable Michael DO, Jose Attending Provider Unallocated , Arjun Provider Primary Care Provi krissy NO FAMILY, PHYSICIAN Primary Care Unavailable Michael, Jose Attending Unavailable Michael, Jose Admitting Unavailable MICHAEL, JOSE Attending Unavailable RACHEL, ROSSANA Attending Unavailable MICHAEL, JOSE Attending Unavailable ROSSANA LEACH Attending Unavailable ROSSANA LEACH Attending Unavailable RACHEL, ROSSANA Attending Unavailable MICHAEL, JOSE Attending Unavailable ROSSANA LEACH Attending Unavailable Unavailable Primary Care Provider Unavailabl e Medications Current Medications Medication Drug Class(es) Dates [...] antepartum, gestational diabetes method of control unspecified ([facility]) , Elevated glucose tolerance test [...] tablet (300 mg) before bedtime. 90 tablet 04/30/2025 04/30/2026 Active Start: 04-25-2025 End: 04-25-2026 take 1 tablet by mouth in the morning labetalol (Normodyne) 200 MG tablet Indications: induced hypertension, antepartum ([facility]-HCC) Take 1 tablet (200 mg) by mouth in the morning and 1 tablet (200 mg) before bedtime. 60 tablet 04/25/2025 04/25/2026 Active Start: 04-11-2025 End: 04-11-2026 take 1 tablet by mouth in the morning labetalol (Normodyne) 100 MG tablet Indications: Elevated BP without diagnosis of hypertension Take 1 tablet (100 mg) by mouth in the morning and 1 tablet (100 mg) before bedtime. 60 tablet 04/11/2025 04/25/2025 Discontinued (Ineffective) loratadine 10 mg oral tablet (20 sources) take 1 tablet by mouth in the morning loratadine (CLARITIN) 10 mg tablet Take 1 tablet (10 mg total) by mouth in the morning. Active ondansetron 4 mg oral tablet (10 sources) Serotonin-3 Receptor Antagonist Start: 06-29-20 End: 11-25-20 24 take 1 tablet by mouth every six [...] 3 06/29/2024 08/20/2024 Discontinued (1 source) Active 115/iron/folic acid ( 19 ORAL) (1 source) 115/iron/folic acid ( 19 ORAL) Take by mouth. Active progesterone 100 mg oral capsule (20 sources) Progesterone take 1 capsule by mouth at bedtime progesterone (PROMETRIUM) 100 mg capsule Take 1 capsule (100 mg total) by mouth in the morning and at bedtime. Active progesterone (En dometrin) 100 MG vaginal insert Insert 100 mg into the vagina in the morning and 100 mg before bedtime. Active Progesterone 200 MG supposit ory (2 sources) Start: 11-12-2024 End: 12-12-2024 Progesterone 200 MG supposit ory Indications: History of miscarriage Insert 200 mg [...] ] Onset: 05-01-2022 Episodic Unclassified (1 source) [facility] SPCF DIS/COND COMPL ; Translations: [[facility] SPCF DIS/COND COMPL ] Onset: 04-27-2022 Urinary tract infections (5 sources) Urinary tract infection, site not specified; Translations: [UTI SITE NOT SPECIFIED] Onset: 05-10-2022 Episodic Viral infection (1 source) Viral infection, unspecified; Translations: [VIRAL INFECTION UNSPECIFIED] Onset: 07-07-2022 Episodic Results Test Name Value Interpretation Reference Range Facility [facility] TOTAL PROTEIN 24 HOUR UR INEon 05-06-2025 TOTAL PROTEIN URINE RANDOM <6.0 NINF - 11.9 mg/dL [facility] TOTAL VOLUME 24 HOUR URINE 3700 mL/24hr [facility] 2nd hr Glucose Tolerance 100 gm loadon 05-04-2025 Glucose Tolerance Test 2 Hour 186 [facility] ALL CBC WITH AUTO DIFFon BASOPHILS ABSOLUTE AUTO 0 [facility] Basophils/100 WBC (Bld) 0.2 % 0.2 - 2.0 % [facility] Eosinophils/100 WBC (Bld) 2.6 % 0.9 - 7.0 % [facility] Erythrocyte distribution width (RBC) [Ratio] 12.7 % 11.0 - 15.0 % [facility] Hematocrit (Bld) [Volume fraction] 39.5 % 36.0 - 48.0 % [facility] Hemoglobin (Bld) [Mass/Vol] 13.7 g/dL 12.0 - 16.0 g/dL [facility] IMMATURE GRANULOCYTES ABS AUTO 0.05 High [facility] Immature granulocytes/100 WBC (Bld) 0.4 % 0.0 - 0.5 % [facility] Interpretation and review of laboratory results Abnormal [facility] LYMPHOCYTES ABSOLUTE AUTO 1.6 [facility] Lymphocytes/100 WBC (Bld) 12.6 % Low 20.5 - 60.0 % [facility] MCH (RBC) [Entitic mass] 31.9 pg 26.7 - 34.0 pg [facility] MCHC (RBC) [Mass/Vol] 34.7 g/dL 29.9 - 35.2 g/dL [facility] MCV (RBC) [Entitic vol] 92.1 fL 81.0 - 99.0 fL [facility] MONOCYTES ABSOLUTE AUTO 0.6 [facility] Monocytes/100 WBC (Bld) 5 % 1.7 - 12.0 % [facility] NEUTROPHILS ABSOLUTE AUTO 9.9 High [facility] Neutrophils/100 WBC (Bld) 79.2 % High 43.0 - 75.0 % [facility] Platelet mean volume (Bld) [Entitic vol] 11 fL 9.5 - 13.5 fL [facility] EO # 0.3 [facility] PLT 226 [facility] TB RBC 4.29 [facility] WBC 12.5 High [facility] Glucose tolerance, 1 houron 05-04-2025 Glucose Tolerance Test 1 Hour 234 [facility] Glucose tolerance, 3 hourson 05-04-2025 Glucose Tolerance Test 3 Hour 133 [facility] Glucose, tolerance fastingon 05-04-2025 Glucose Tolerance Test Fasting 108 [facility] No Panel Informationon 05-04 [facility] Healthcar e US OB BPP W NON-STRESS on 05-04-[address] [address] Ultrasound Report Signed Patient: VIMAL FUNES MR#: [id number] : 2000 Acct:[id number] Age/Sex: 25 / F ADM Date: 05/04/25 Loc: [facility] 250-[address]: Rossana Leach Ordering Physician: Rossana Leach Date of Service: 05/04/25 Procedure(s): US OB BPP w non-stress Accession Number(s): [id number] cc: JENNIFER Watkins The [place] [address] Patient Name: VIMAL FUNES MRN: [facility]:[id number] date: 2000 Sex: F Assigned Patient Location: [facility] Current Patient Location: [facility] Accession/Order Number: [id number] Exam Date: 05/04/2025 12:08 Report Date: 05/04/2025 12:09 At the request of: ROSSANA LEACH Procedure: US OB BPP w non-stress Biophysical profile. Reason for exam: Gestational diabetes COMPARISON: None TECHNIQUE: Transabdominal imaging of the gravid uterus was obtained. FINDINGS: The electric crane operator reports a BPP of 8 out of 8. DANYA is normal at 12.4 cm. heart rate 150 bpm. US/US OB BPP w non-stress IMPRESSION: BPP 8 out of 8. Impression dictated by: Bulmaro Arias Jr., D.O. 05/04/2025 12:09 PM Dictation Location: [place] [address] Electronically authenticated by: [id number] Y Date: 05/04/2025 12:09 Dictated By: Bulmaro Arias M.D. Signed By: 05/04/25 1212 DD/ 1209 TD/TT: [employer]: [facility] Radiology, Radiologist, MD - 05/04/2025 [place] [address] Ultrasound Report Signed Patient: VIMAL FUNES MR#: [id number] : 2000 Acct:[id number] Age/Sex: 25 / F ADM Date: 05/04/25 Loc: [facility] 250-[address]: Rossana Leach Ordering Physician: Rossana Leach Date of Service: 05/04/25 Procedure(s): US OB BPP w non-stress Accession Number(s): [id number] cc: JENNIFER Watkins [place] [address] Patient Name: VIMAL FUNES MRN: [id number] date: 2000 Sex: F Assigned Patient Location: [facility] Current Patient Location: [facility] Accession/Order Number: [id number] Exam Date: 05/04/2025 12:08 Report Date: 05/04/2025 12:09 At the request of: ROSSANA LEACH Procedure: US OB BPP w non-stress Biophysical profile. Reason for exam: Gestational diabetes COMPARISON: None TECHNIQUE: Transabdominal imaging of the gravid uterus was obtained. FINDINGS: The electric crane operator reports a BPP of 8 out of 8. DANYA is normal at 12.4 cm. heart rate 150 bpm. US/US OB BPP w non-stress IMPRESSION: BPP 8 out of 8. Impression dictated by: Bulmaro Arias Jr., D.O. 05/04/2025 12:09 PM Dictation Location: [place] [address] Electronically authenticated by: [id number] Y Date: 05/04/2025 12:09 Dictated By: Bulmaro Arias M.D. Signed By: 05/04/25 1212 DD/ 1209 TD/TT: Skinner Pelts: [facility] Radiology Study observation (narrative) [facility] US OB BPP W NON-STRESS Ordered By: Radiologist Radiology on 05-04-2025 [facility] [employer] Work Phone: US OB GROWTHon 05-04-2025 [place] [address] Ultrasound Report Signed Patient: VIMAL FUNES MR#: [id number] : 2000 Acct:[id number] Age/Sex: 25 / F ADM Date: 05/04/25 Loc: [facility] 250-[address]: Rossana Leach Ordering Physician: Rossana Leach Date of Service: 05/04/25 Procedure(s): US OB growth Accession Number(s): [id number] cc: JENNIFER Watkins [place] [address] Patient Name: VIMAL UFNES MRN: [facility]:[id number] date: 2000 Sex: F Assigned Patient Location: [facility] Current Patient Location: [facility] Accession/Order Number: [id number] Exam Date: 05/04/2025 12:06 Report Date: 05/04/2025 [...] Jr., D.O. 05/04/2025 12:08 PM Dictation Location: [place] [address] Electronically authenticated by: [id number] Y Date: 05/04/2025 12:08 Dictated By: Bulmaro Arias M.D. Signed By: 05/04/25 1211 DD/ 1208 TD/TT: [employer]: [facility] Radiology, Radiologist, - 05/04/2025 [place] [address] Ultrasound Report Signed Patient: VIMAL FUNES MR#: [id number] : 2000 Acct:[id number] Age/Sex: 25 / F ADM Date: 05/04/25 Loc: [place] [address]-[address]: Rossana Leach Ordering Physician: Rossana Leach Date of Service: 05/04/25 Procedure(s): US OB growth Accession Number(s): [id number] cc: Rossana Leach; JENNIFER SEE [place] [address] Patient Name: VIMAL FNUES MRN: [id number]:[id number] date: 2000 Sex: F Assigned Patient Location: [facility] Current Patient Location: [facility] Accession/Order Number: [id number] Exam Date: 05/04/2025 12:06 Report Date: 05/04/2025 [...] Jr., D.O. 05/04/2025 12:08 PM Dictation Location: [place] Electronically authenticated by: [id number] Y Date: 05/04/2025 12:08 Dictated By: Bulmaro Arias M.D. Signed By: 05/04/25 1211 DD/ 1208 TD/TT: [employer]: [facility] Radiology Study observation (narrative) [facility] OB GROWTHOrdered By: Jeimy ologist Radiology on 05-04-2025 [facility] [employer] [facility] Work Phone: Urinalysis macro (dipstick) panel (U)on 04-30-2025 Bilirubin, UA Negative Negative - 4(70) +++ mg/dL [facility] Blood, UA Negative Negative - 50 Jason/mcL [facility] Clarity, UA Clear [facility] Color, UA Yellow [facility] Glucose, UA Positive Negative - 2000(110) ++++ mg/dL [facility] Interpretation and review of laboratory results Abnormal [facility] Ketones, UA Negative Negative - 160(16) ++++ mg/dL [facility] Leukocytes, UA Positive Negative - 500+++ Carlos/mcL [facility] Nitrite, UA Negative Negative - Positive [facility] pH, UA 6 5 - 9 [facility] e Protein, UA Negative Negative - 1999(20) ++++ mg/dL [facility] Spec Grav, UA 1.01 1 - 1.03 [facility] Urobilinogen, UA 1.0 0.2 - 12 mg/dL [facility] e ALL CBC WITH AUTO DIFFon BASOPHILS ABSOLUTE AUTO 0 [facility] Basophils/100 WBC (Bld) 0.2 % 0.2 - 2.0 % [facility] Eosinophils/100 WBC (Bld) 2.2 % 0.9 - 7.0 % [facility] Erythrocyte distribution width (RBC) [Ratio] 12.9 % 11.0 - 15.0 % [facility] Hematocrit (Bld) [Volume fraction] 40 % 36.0 - 48.0 % [facility] Hemoglobin (Bld) [Mass/Vol] 13.6 g/dL 12.0 - 16.0 g/dL [facility] IMMATURE GRANULOCYTES ABS AUTO 0.04 High [facility] Immature granulocytes/100 WBC (Bld) 0.3 % 0.0 - 0.5 % [facility] Interpretation and review of laboratory results Abnormal [facility] LYMPHOCYTES ABSOLUTE AUTO 1.4 [facility] Lymphocytes/100 WBC (Bld) 10.8 % Low 20.5 - 60.0 % [facility] MCH (RBC) [Entitic mass] 31.7 pg 26.7 - 34.0 pg [facility] MCHC (RBC) [Mass/Vol] 34 g/dL 29.9 - 35.2 g/dL [facility] MCV (RBC) [Entitic vol] 93.2 fL 81.0 - 99.0 fL [facility] MONOCYTES ABSOLUTE AUTO 0.5 [facility] Monocytes/100 WBC (Bld) 4.3 % 1.7 - 12.0 % [facility] NEUTROPHILS ABSOLUTE AUTO 10.2 High [facility] Neutrophils/100 WBC (Bld) 82.2 % High 43.0 - 75.0 % [facility] Platelet mean volume (Bld) [Entitic vol] 10.6 fL 9.5 - 13.5 fL [facility] TBH EO # 0.3 [facility] TBH PLT 202 [facility] TBH RBC 4.29 [facility] WBC 12.5 High [facility] Glucose 1h post 50g loadon 0 04-27-2025 Glucose, 1 hr PP 50GM dose 171 [facility] No Panel Informationon 04-27 [facility] Urinalysis macro (dipstick) panel (U)on 04-25-2025 Bilirubin, UA Negative Negative - 4(70) +++ mg/dL [facility] Healthcare Blood, UA Negative Negative - 50 Jason/mcL [facility] Healthcare Clarity, UA Clear [facility] Color, UA Yellow [facility] Glucose, UA Negative Negative - 1999(110) ++++ mg/dL [facility] Interpretation and review of laboratory results Normal [facility] Ketones, UA Negative Negative - 160(16) ++++ mg/dL [facility] Leukocytes, UA Negative Negative - 500+++ Carlos/mcL [facility] Healthcare Nitrite, UA Negative Negative - Positive [facility] pH, UA 6.5 5 - 9 [facility] Healthcar e Protein, UA Negative Negative - 1999(20) ++++ mg/dL [facility] Healthcare Spec Grav, UA 1.01 1 - 1.03 [facility] Urobilinogen, UA 0.2 0.2 - 12 mg/dL [facility] Urinalysis macro (dipstick) panel (U)on 04-11-2025 Bilirubin, UA Negative Negative - 4(70) +++ mg/dL [facility] Blood, UA Negative Negative - 50 Jason/mcL [facility] Healthcare Clarity, UA Clear [facility] Healthca re Color, UA Yellow [facility] Healthcar e Glucose, UA Negative Negative - 1999(110) ++++ mg/dL [facility] Interpretation and review of laboratory results Normal [facility] Ketones, UA Negative Negative - 160(16) ++++ mg/dL [facility] Healthcare Leukocytes, UA Negative Negative - 500+++ Carlos/mcL [facility] Healthcare Nitrite, UA Negative Negative - Positive [facility] pH, UA 7 5 - 9 [facility] Protein, UA Negative Negative - 1999(20) ++++ mg/dL [facility] Healthcare Spec Grav, UA 1.005 1 - 1.03 [facility] care Urobilinogen, UA 1.0 0.2 - 12 mg/dL [facility] US OB INCOMPLETE ANATOMYon 0 03-25-[address] [address] Ultrasound Report Signed Patient: VIMAL FUNES MR#: [id number] : 2000 Acct:[id number] Age/Sex: 24 / F ADM Date: 03/23/25 Loc: US Attending Dr: Jose Rodriguez D.O. Ordering Physician: Jose Rodriguez D.O. Date of Service: 03/23/25 Procedure(s): US OB incomplete anatomy Accession Number(s): [id number] cc: JENNIFER SEE ; Jose Rodriguez D.O. [place] [id number] Patient Name: VIMAL FUNES MRN: [facility]:[id number] date: 2000 Sex: F Assigned Patient Location: US Current Patient Location: US Accession/Order Number: [id number] Exam Date: 03/25/2025 08:23 Report Date: 03/25/2025 [...] Brown M.D. 03/25/2025 8:25 AM Dictation Location: [place] [address] Electronically authenticated by: [id number] Y Date: 03/25/2025 08:25 Dictated By: Meghana Brown M.D. Signed By: 03/25/25826 DD/ 4 TD/TT: [employer]: [facility] Radiology, Radiologist, - 03/25/2025 [place] [address] Ultrasound Report Signed Patient: VIMAL FUNES MR#: [id number] : 2000 Acct:[id number] Age/Sex: 24 / F ADM Date: 03/23/25 Loc: US Attending Dr: Jose Rodriguez D.O. Ordering Physician: Jose Rodriguez D.O. Date of Service: 03/23/25 Procedure(s): US OB incomplete anatomy Accession Number(s): [id number] cc: JENNIFER SEE ; Jose Rodriguez D.O. The [place] [id number] Patient Name: VIMAL FUNES MRN: [facility]:[id number] date: 2000 Sex: F Assigned Patient Location: US Current Patient Location: US Accession/Order Number: [id number] Exam Date: 03/25/2025 08:23 Report Date: 03/25/2025 [...] Brown M.D. 03/25/2025 8:25 AM Dictation Location: [place] [address] Electronically authenticated by: [id number] Y Date: 03/25/2025 08:25 Dictated By: Meghana Brown M.D. Signed By: 03/25/25826 DD/ 0825 TD/TT: [employer]: [facility] Radiology Study observation (narrative) [facility] US OB INCOMPLETE ANATOMYOrde red By: Radiologist Radiology on 03-25-2025 [facility] [employer] [facility] Work Phone: Urinalysis macro (dipstick) panel (U)on 03-14-2025 Bilirubin, UA Negative Negative - 4(70) +++ mg/dL [facility] Blood, UA Negative Negative - 50 Jason/mcL [facility] Clarity, UA Clear [facility] Health[facility] re Color, UA Yellow [facility] Glucose, UA Negative Negative - 1999(110) ++++ mg/dL [facility] Interpretation and review of laboratory results Normal [facility] Ketones, UA Negative Negative - 160(16) ++++ mg/dL [facility] Leukocytes, UA Negative Negative - 500+++ Carlos/mcL [facility] Nitrite, UA Negative Negative - Positive [facility] pH, UA 7 5 - 9 [facility] Protein, UA Negative Negative - 1999(20) ++++ mg/dL [facility] Spec Grav, UA 1.01 1 - 1.03 [facility] Urobilinogen, UA 0.2 0.2 - 12 mg/dL [facility] No Panel InformationOrdered By: Radiologist Radiology on 03-08-2025 [facility] e Work Phone: No Panel Informationon 03-08 Radiology Study observation (narrative) [facility] US OB ANATOMYon 03-08-[address] [address] Ultrasound Report Signed Patient: VIMAL FUNES MR#: [id number] : 2000 Acct:[id number] Age/Sex: 24 / F ADM Date: 03/08/25 Loc: US Attending Dr: Jose Rodriguez D.O. Ordering Physician: Jose Rodriguez D.O. Date of Service: 03/08/25 Procedure(s): US OB anatomy Accession Number(s): [id number] cc: JENNIFER SEE ; Jose Rodriguez D.O. [address] [address] Patient Name: VIMAL FUNES MRN: [facility]:[id number] date: 2000 Sex: F Assigned Patient Location: US Current Patient Location: US Accession/Order Number: [id number] Exam Date: 03/08/2025 20:31 Report Date: 03/08/2025 [...] Knapp M.D. 03/08/2025 8:36 PM Dictation Location: [place] [address] Electronically authenticated by: [id number] Y Date: 03/08/2025 20:36 Dictated By: Shivam Knapp D.O. Signed By: 03/08/252037 DD/ 35 TD/TT: [employer]: [facility] Radiology, Radiologist, MD - 03/08/2025 [place] [address] Ultrasound Report Signed Patient: VIMAL FUNES MR#: [id number] : 2000 Acct:[id number] Age/Sex: 24 / F ADM Date: 03/08/25 Loc: US Attending Dr: Jose Rodriguez D.O. Ordering Physician: Jose Rodriguez D.O. Date of Service: 03/08/25 Procedure(s): US OB anatomy Accession Number(s): [id number] cc: JENNIFER SEE ; Jose Rodriguez D.O. [address] [address] Patient Name: VIMAL FUNES MRN: [id number] date: 2000 Sex: F Assigned Patient Location: Current Patient Location: US Accession/Order Number: [id number] Exam Date: 03/08/2025 20:31 Report Date: 03/08/2025 [...] Knapp M.D. 03/08/2025 8:36 PM Dictation [facility] Electronically authenticated by: [id number] Y Date: 03/08/2025 20:36 Dictated By: Shivam Knapp D.O. Signed By: 03/08/252037 DD/ 35 TD/TT: [employer]: [facility] US OB CERVICAL LENGTHon 02-[address] [address] Ultrasound Report Signed Patient: VIMAL FUNES MR#: [id number] : 2000 Acct:[id number] Age/Sex: 24 / F ADM Date: 03/08/25 Loc: US Attending Dr: Jose Rodriguez D.O. Ordering Physician: Jose Rodriguez D.O. Date of Service: 03/08/25 Procedure(s): US OB cervical length Accession Number(s): [id number] cc: JENNIFER SEE ; Jose Rodriguez D.O. [address] [address] Patient Name: VIMAL FUNES MRN: [facility]:[id number] date: 2000 Sex: F Assigned Patient Location: US Current Patient Location: US Accession/Order Number: [id number] Exam Date: 03/08/2025 20:31 Report Date: 03/08/2025 [...] Knapp M.D. 03/08/2025 8:36 PM Dictation Location: [facility] Electronically authenticated by: [id number] Y Date: 03/08/2025 20:36 Dictated By: Shivam Knapp D.O. Signed By: 03/08/252037 DD/ 35 TD/TT: [employer]: [facility] Radiology, Radiologist, - 03/08/2025 [place] [address] Ultrasound Report Signed Patient: VIMAL FUNES MR#: [id number] : 2000 Acct:[id number] Age/Sex: 24 / F ADM Date: 03/08/25 Loc: US Attending Dr: Jose Rodriguez D.O. Ordering Physician: Jose Rodriguez D.O. Date of Service: 03/08/25 Procedure(s): US OB cervical length Accession Number(s): [id number] cc: JENNIFER SEE ; Jose Rodriguez D.O. [place] [address] Patient Name: VIMAL FUNES MRN: [facility]:[id number] date: 2000 Sex: F Assigned Patient Location: US Current Patient Location: US Accession/Order Number: [id number] Exam Date: 03/08/2025 20:31 Report Date: 03/08/2025 [...] Knapp M.D. 03/08/2025 8:36 PM Dictation Location: [employer] Electronically authenticated by: [id number] Y Date: 03/08/2025 20:36 Dictated By: Shivam Knapp D.O. Signed By: 03/08/252037 DD/ 35 TD/TT: [employer]: ARJUN PONCE,APTIMA HPV,AGE GDLNon AGE GDLN ACOG TESTING Note . RUTH Martinez Comment on above: TESTS RESULT FLAG U NITS REF RANGE LAB Clinician Provided Cytology Information Source.............Endoc[employer]ix No. of containers..01 ThinPrep Vial Age Algo ACOG Yris... -24 10 FLAG LEGEND: L-Low Normal,H-High Normal,LL-Alert Low,HH-Alert High <-Panic Low,>-Panic High,A-Abnormal,AA-Critical Abnormal Performed at: 01 =G Camryn Rojas[address] [address] Jenise Byrne MD, IGP, RFX APTIMA HPV ASCU Note . [facility] Comment on above: TESTS RESULT FLAG U NITS REF RANGE LAB DIAGNOSIS: 02 NEGATIVE FOR INTRAEPITHELIAL LESION OR MALIGNANCY. Specimen adequacy: 02 Satisfactory for evaluation. Endocervical and/or squamous metaplastic cells (endocervical component) are present. Performed by: 02 Whitney Alvarez, Manager Therapy ([facility]) . 02 Note: Note 02 The [...] Low,>-Panic High,A-Abnormal,AA-Critical Abnormal Performed at: [address] [facility] [address] [address] Jenise Byrne MD, Performed at: =G - [facility] [address] [id number] Hot Sealing Machine Operator: Jenise Byrne MD, Phone: [phone] Performed at: [address] [id number] Hot Sealing Machine Operator: Jenise Byrne MD, Phone: [phone] SPATULA-ALONE ENDOCERVIX [facility] Healthcar e RECURRENT VAGINITIS (HTRX)on 02-22-2025 ATOPOBIUM VAGINAE 0 [facility] ATOPOBIUM VAGINAE Not detected [facility] BVAB 2,3 (BACTERIAL VAGINOSIS ASSOCIATED BACTERIA 2, 3); MOBILUNCUS SPP 0 [facility] BVAB 2,3 (BACTERIAL VAGINOSIS ASSOCIATED BACTERIA 2, 3); MOBILUNCUS SPP Not detected [facility] SIMEON ALBICANS, PARAPSILOSIS, TROPICALIS 0 [facility] SIMEON ALBICANS, PARAPSILOSIS, TROPICALIS Not detected [facility] SIMEON GLABRATA 0 [facility] SIMEON GLABRATA Not detected [facility] SIMEON KRUSEI 0 [facility] SIMEON KRUSEI Not detected [facility] CHLAMYDIA TRACHOMATIS 0 [facility] CHLAMYDIA TRACHOMATIS Not detected [facility] GARDNERELLA VAGINALIS 0 [facility] GARDNERELLA VAGINALIS Not detected [facility] MEGASPHAERA (TYPES 1, 2) 0 [facility] MEGASPHAERA (TYPES 1, 2) Not detected [facility] MYCOPLASMA GENITALIUM 0 [facility] MYCOPLASMA GENITALIUM Not detected [facility] NEISSERIA GONORRHOEAE 0 [facility] NEISSERIA GONORRHOEAE Not detected [facility] TRICHOMONAS VAGINALIS 0 [facility] TRICHOMONAS VAGINALIS Not detected [facility] Healthcar e Urinalysis macro (dipstick) panel (U)on 02-20-2025 Bilirubin, UA Negative Negative - 4(70) +++ mg/dL [facility] Blood, UA Negative Negative - 50 Jason/mcL [facility] Clarity, UA Clear [facility] re Color, UA Yellow [facility] Glucose, UA Negative Negative - 2000(110) ++++ mg/dL [facility] Interpretation and review of laboratory results Abnormal [facility] Ketones, UA Negative Negative - 160(16) ++++ mg/dL [facility] Leukocytes, UA Negative Negative - 500+++ Carlos/mcL [facility] Nitrite, UA Negative Negative - Positive [facility] pH, UA 7 5 - 9 [facility] Health[facility] Protein, UA Negative Negative - 1999(20) ++++ mg/dL [facility] Spec Grav, UA 1.01 1 - 1.03 [facility] Urobilinogen, UA 0.2 0.2 - 12 mg/dL [facility] Unlisted Lab Teston 01-16-20 [facility] Urinalysis macro (dipstick) panel (U)on 01-14-2025 Bilirubin, UA Negative Negative - 4(70) +++ mg/dL [facility] Blood, UA Positive Negative - 50 Jason/mcL [facility] Comment on above: trace-intact Clarity, UA Clear [facility] re Color, UA Yellow [facility] Glucose, UA Negative Negative - 1999(110) ++++ mg/dL [facility] Interpretation and review of laboratory results Abnormal [facility] Ketones, UA Negative Negative - 160(16) ++++ mg/dL [facility] Leukocytes, UA Negative Negative - 500+++ Carlos/mcL [facility] Nitrite, UA Negative Negative - Positive [facility] pH, UA 6 5 - 9 [facility] Health[facility] Protein, UA Negative Negative - 1999(20) ++++ mg/dL [facility] Spec Grav, UA 1.005 1 - 1.03 [facility] Urobilinogen, UA 0.2 0.2 - 12 mg/dL [facility] Healthcar e Free Cell DNA (Non-Pro Medica Send Out)on 01-13-2025 [facility] ALL CBC WITH AUTO DIFFon BASOPHILS ABSOLUTE AUTO 0 [facility] Basophils/100 WBC (Bld) 0.4 % 0.2 - 2.0 % [facility] Eosinophils/100 WBC (Bld) 1.7 % 0.9 - 7.0 % [facility] Erythrocyte distribution width (RBC) [Ratio] 12.3 % 11.0 - 15.0 % [facility] Hematocrit (Bld) [Volume fraction] 42.5 % 36.0 - 48.0 % [facility] Hemoglobin (Bld) [Mass/Vol] 14.7 g/dL 12.0 - 16.0 g/dL [facility] IMMATURE GRANULOCYTES ABS AUTO 0.02 [facility] Immature granulocytes/100 WBC (Bld) 0.2 % 0.0 - 0.5 % [facility] Interpretation and review of laboratory results Abnormal [facility] LYMPHOCYTES ABSOLUTE AUTO 1.4 [facility] Lymphocytes/100 WBC (Bld) 15.4 % Low 20.5 - 60.0 % [facility] MCH (RBC) [Entitic mass] 31.6 pg 26.7 - 34.0 pg [facility] MCHC (RBC) [Mass/Vol] 34.6 g/dL 29.9 - 35.2 g/dL [facility] MCV (RBC) [Entitic vol] 91.4 fL 81.0 - 99.0 fL [facility] MONOCYTES ABSOLUTE AUTO 0.5 [facility] Monocytes/100 WBC (Bld) 5.4 % 1.7 - 12.0 % [facility] NEUTROPHILS ABSOLUTE AUTO 7 High [facility] Neutrophils/100 WBC (Bld) 76.9 % High 43.0 - 75.0 % [facility] Platelet mean volume (Bld) [Entitic vol] 10.1 fL 9.5 - 13.5 fL [facility] TBH EO # 0.2 [facility] [employer] TBH PLT 216 [facility] TB RBC 4.65 [facility] Health[facility] TB WBC 9.2 [facility] [employer] [facility] Hemoglobin A1con 01-05-2025 HbA1c (Bld) [Mass fraction] 5 % 4.0 - 6.0 % [facility] No Panel Informationon 01-05 [facility] Health[facility] e US OB TRANSVAGINALon 12-14- 025 US OB TRANSVAGINAL EXAM: US OB [...] II, MD, PHD at 14-Dec-2024 08:35:59 PM [facility] Normal Not Available Comment on above: Order Comment: US OB TRANSVAGINAL No LMP recorded. TBH PREG QUANT HCGon 025 HCG QUANTITATIVE 92164 mIU/mL [facility]a [facility]thcare Comment on above: 5-50 0.2-1 WEEK 50-500 1-2 WEEKS 100-5,000 2-3 WEEKS 500-10,000 3-4 WEEKS 1,000-50,000 4-5 WEEKS 10,000-100,000 5-6 WEEKS 15,000-200,000 6-8 WEEKS 10,000-100,000 2-3 MONTHS [facility] TBH PREG QUANT HCGon 025 HCG QUANTITATIVE 6254 mIU/mL [facility]th[facility] Comment on above: 5-50 0.2-1 [...] WEEKS 15,000-200,000 6-8 WEEKS 10,000-100,000 2-3 [facility] ALL CBC WITH AUTO DIFFon BASOPHILS ABSOLUTE AUTO 0 [facility] Basophils/100 WBC (Bld) 0.5 % 0.2 - 2.0 % [facility] Eosinophils/100 WBC (Bld) 6.2 % 0.9 - 7.0 % [facility] Erythrocyte distribution width (RBC) [Ratio] 11.9 % 11.0 - 15.0 % [facility] Hematocrit (Bld) [Volume fraction] 43.8 % 36.0 - 48.0 % [facility] Hemoglobin (Bld) [Mass/Vol] 14.8 g/dL 12.0 - 16.0 g/dL [facility] IMMATURE GRANULOCYTES ABS AUTO 0.02 [facility] Immature granulocytes/100 WBC (Bld) 0.2 % 0.0 - 0.5 % [facility] LYMPHOCYTES ABSOLUTE AUTO 2 [facility] Lymphocytes/100 WBC (Bld) 22.1 % 20.5 - 60.0 % [facility] MCH (RBC) [Entitic mass] 31.7 pg 26.7 - 34.0 pg [facility] MCHC (RBC) [Mass/Vol] 33.8 g/dL 29.9 - 35.2 g/dL [facility] MCV (RBC) [Entitic vol] 93.8 fL 81.0 - 99.0 fL [facility] MONOCYTES ABSOLUTE AUTO 0.5 [facility] Monocytes/100 WBC (Bld) 5.3 % 1.7 - 12.0 % [facility] NEUTROPHILS ABSOLUTE AUTO 5.8 [facility] Neutrophils/100 WBC (Bld) 65.7 % 43.0 - 75.0 % [facility] Platelet mean volume (Bld) [Entitic vol] 10 fL 9.5 - 13.5 fL [facility] TBH EO # 0.6 [facility] TBH PLT 236 [facility] TB RBC 4.67 [facility] TB WBC 8.9 [facility] Healthcar e [place] 08-10-2024 L Specimen: [id number] Received: 08/10/24 Status: CHRISKirstin Hoang Num: [id number] Spec Type: Surgical Subm Dr: Jose Rodriguez Tissues: A Products of Conception - Spontaneous or Missed (CONTENTS OF CONCEPT Procedures: /, Gross/Micro L4 Age/ Patient Sex Location Account Attending Physician Vimal Funes / LABELL [id number] Jose Rodriguez SPEC NUM: [id number] RECD: 08/10/24 STATUS: CAROL HOANG NUM: [id number] CAROLIN: 08/10/[address] [facility] [address]: Jose Rodriguez ENTERED: 08/10/[address] [facility] [address]: Rafia,Lab SPEC TYPE: Surgical DEPT: MONICA ALTMAN ENTERED BY: [id number] RECV BY: [id number] ORDERED: HE/, Gross/Micro L4 ORDERED: , Gross/Micro L4 Pathological Diagnosis Products of conception: [...] villi and decidua. No tissue is identified. Enrollment Specialist sections of the chorionic villi are submitted in cassette A1 with accounting representative sections of the decidua is submitted in cassette A2. (2, ss, [id number]) CPT Codes 85305 Specimen: [id number] Received: 08/10/24 Status: CAROL Hoang Num: [id number] Spec Type: Surgical Subm Dr: Jose Rodriguez Tissues: A Products of Conception - Spontaneous or Missed (CONTENTS OF CONCEPT Procedures: , Gross/Micro L4 Patient: Vimal Funes [id number] (Continued) Signed (signature on file) Josh Aragon MD 08/13/24 1647 Normal [facility] TBH PREG QUANT HCGon 024 HCG QUANTITATIVE 240 mIU/mL [facility] lthcare Comment on above: 5-50 0.2-1 WEEK 50-500 1-2 WEEKS 100-5,000 2-3 WEEKS 500-10,000 3-4 WEEKS 1,000-50,000 4-5 WEEKS 10,000-100,000 5-6 WEEKS 15,000-200,000 6-8 WEEKS 10,000-100,000 2-3 MONTHS CL[facility] Healthcar e ALL CBC WITH AUTO DIFFon BASOPHILS ABSOLUTE AUTO 0.1 [facility] Basophils/100 WBC (Bld) 0.5 % 0.2 - 2.0 % [facility] Eosinophils/100 WBC (Bld) 2.8 % 0.9 - 7.0 % [facility] Erythrocyte distribution width (RBC) [Ratio] 11.9 % 11.0 - 15.0 % [facility] Hematocrit (Bld) [Volume fraction] 44.7 % 36.0 - 48.0 % [facility] Hemoglobin (Bld) [Mass/Vol] 15.3 g/dL 12.0 - 16.0 g/dL [facility] IMMATURE GRANULOCYTES ABS AUTO 0.03 [facility] Immature granulocytes/100 WBC (Bld) 0.3 % 0.0 - 0.5 % [facility] Interpretation and review of laboratory results Abnormal [facility] LYMPHOCYTES ABSOLUTE AUTO 1.6 [facility] Lymphocytes/100 WBC (Bld) 14.9 % Low 20.5 - 60.0 % [facility] MCH (RBC) [Entitic mass] 31.7 pg 26.7 - 34.0 pg [facility] MCHC (RBC) [Mass/Vol] 34.2 g/dL 29.9 - 35.2 g/dL [facility] MCV (RBC) [Entitic vol] 92.7 fL 81.0 - 99.0 fL [facility] MONOCYTES ABSOLUTE AUTO 0.4 [facility] Monocytes/100 WBC (Bld) 3.7 % 1.7 - 12.0 % [facility] NEUTROPHILS ABSOLUTE AUTO 8.2 [facility] Neutrophils/100 WBC (Bld) 77.8 % High 43.0 - 75.0 % [facility] Platelet mean volume (Bld) [Entitic vol] 10 fL 9.5 - 13.5 fL [facility] Healthcare TBH EO # 0.3 [facility] Healthcar e TBH PLT 263 [facility] TB RBC 4.82 [facility] TB WBC 10.6 [facility] Health[facility] No Panel Informationon 07-21 [facility] TB DRUG SCREEN RAPID (URINE )on 07-21-2024 AMPHETAMINE SCREEN URINE Negative NEGATIVE [facility] Healthcare BARBITURATES SCREEN URINE Negative NEGATIVE [facility] [...] [facility] METHAMPHETAMINES SCREEN URINE Negative NEGATIVE [facility] OPIATE SCREEN URINE Negative NEGATIVE [facility] OXYCODONE SCREEN URINE Negative NEGATIVE NO [facility] PHENCYCLIDINE SCREEN URINE Negative NEGATIVE [facility] TRICYCLIC ANTIDEPRESSANT URINE Negative NEGATIVE [facility] REEFLEX IF POSITIVE [facility] HCG ( test) Ql (U)o n 06-29-2024 Interpretation and review of laboratory results Abnormal [facility] Preg Test, Ur Positive [facility] Urinalysis macro (dipstick) panel (U)on 06-29-2024 Bilirubin, UA Negative Negative - 4(70) +++ mg/dL [facility] Blood, UA Negative Negative - 50 Jason/mcL [facility] Clarity, UA Clear [facility] Healthca re Color, UA Yellow [facility] Health[facility] Glucose, UA Negative Negative - 1999(110) ++++ mg/dL [facility] Interpretation and review of laboratory results Normal [facility] Ketones, UA Negative Negative - 160(16) ++++ mg/dL [facility] Leukocytes, UA Negative Negative - 500+++ Carlos/mcL [facility] Nitrite, UA Negative Negative - Positive [facility] pH, UA 7.0 5 - 9 [facility] Health[facility] Protein, UA Negative Negative - 1999(20) ++++ mg/dL [facility] Spec Grav, UA 1.015 1 - 1.03 [facility] Urobilinogen, UA 0.2 0.2 - 12 mg/dL [facility] XR hand RT min 3V*on 023 XR hand RT min 3V* [facility] Ratio Other XR hand RT min 3V* [facility] Ratio Other XR hand RT min 3V* [address] [facility] [employer] Other XR hand RT min 3V* [place] [address] [facility] Ratio Other XR hand RT min 3V* XRay Report [employer] [facility] Ratio Other XR hand RT min 3V* Signed [employer] Other XR hand RT min 3V* Patient: Vimal Funes MR#: [id number] [facility] [employer] Other XR hand RT min 3V* 18 [employer] Other XR hand RT min 3V* : 2000 Acct:[id number] [employer] Other XR hand RT min 3V* Age/Sex: 22 / F ADM Date: 12/26/22 [employer] Other XR hand RT min 3V* Loc: XDUCLY Room: Type: [facility] [employer] Other XR hand RT min 3V* Attending Dr: Jennifer GIL [employer] Other XR hand RT min 3V* Copies to: JEFFERY Rodriguez [employer] Other XR hand RT min 3V* Ordering Provider: JEFFERY Rodriguez [employer] Other XR hand RT min 3V* Date of Service: 12/26/22 [employer] Other XR hand RT min 3V* XR/XR hand RT min 3V*: RIGHT HAND INJURY [employer] Other XR hand RT min 3V* RIGHT HAND - 4 views [employer] Other XR hand RT min 3V* REASON FOR EXAM: Patient had right thumb hyperextended yesterday when trying to open the door. Now [employer] Other XR hand RT min 3V* with pain. [employer] Other XR hand RT min 3V* COMPARISON: None [employer] Other XR hand RT min 3V* FINDINGS: [employer] Other XR hand RT min 3V* No focal soft tissue abnormality. There appears to be avulsion fracture involving the base of the [employer] Other XR hand RT min 3V* distal phalanx of the thumb. Joint spaces appear maintained. No bony erosions. [employer] Other XR hand RT min 3V* XR/XR hand RT min 3V* [employer] Other XR hand RT min 3V* IMPRESSION: [employer] Other XR hand RT min 3V* AVULSION FRACTURE INVOLVING THE BASE OF THE DISTAL PHALANX OF THE THUMB. [employer] Other XR hand RT min 3V* Impression dictated by: Bulmaro Arias Jr., DGeneOGene12/26/2022 1:44 PM [employer] Other XR hand RT min 3V* Dictation Location: RADIO-PC-15 [employer] Other XR hand RT min 3V* Transcribed By: LYNETTE 12/26/22 [facility] [employer] Other XR hand RT min 3V* Dictated By: Bulmaro Arias Jr, DO 12/26/22 [facility] [employer] Other XR hand RT min 3V* Signed By: [employer] Other XR hand RT min 3V* 12/26/[address] [place] [address] [employer] Other PAP ACOG PANEL 2: 22 to 30on 11-09-2022 . . [facility] Comment on above: Performed By: #### [id number] ####[facility] [address] [place] [address]DrGene Mancini Age Gdln ACOG Testing - [facility] Comment on above: Performed By: #### [id number] ####[facility] [address] [place] [id number] Mancini DIAGNOSIS: Comment [facility] Comment on above: Result Comment: NEGA TIVE FOR INTRAEPITHELIAL LESION OR MALIGNANCY. Performed By: #### 4 [id number] ####[facility] [address] [place] [id number] Mancini Methodology: Comment [facility] Comment on above: Result Comment: This liquid based ThinPrep(R) pap test was screened with the use of an image guided system. Performed By: #### 4 [id number] ####[facility] [address] [place], [place] [address]Dr. Donis Mancini Note: Comment Normal [facility] Comment on above: Result Comment: The Pap smear is a screening test designed to aid in the detection of premalignant and malignant conditions of the uterine cervix. It is not a diagnostic procedure and should not be used as the sole means of detecting cervical cancer. Both false-positive and false-negative reports do occur. . Performed By: #### [id number] ####[facility] [address] [place], [place] [address]Dr. Donis Mancini Performed by: Comment Normal [facility] Comment on above: Result Comment: Zuleima Lin Rod Welder (ASCP) Performed By: #### [id number] ####[facility] [address] [place], [place] [address]Dr. Donis Mancini Reflex Criteria: Comment Normal [facility] Comment on above: Result Comment: The HPV DNA reflex criteria were not met with this specimen result therefore, no HPV testing was performed. . Performed By: #### [id number] ####[facility] [address] [place], [place] [address]Dr. Donis Mancini Specimen adequacy: Comment Normal [facility] Comment on above: Result Comment: Sati sfactory for evaluation. Endocervical and/or squamous metaplastic cells (endocervical component) are present. Performed By: #### [id number] ####[facility] [address] [place], [place] [address]Dr. Donis Mancini Cytology Cervical or vaginal smear or scraping studyOrdered By: Jael Nix on 11-02-2022 [facility] CBC AUTO DIFFon 08-11-2022 BASO # 0.0 103/ul Normal 0.0-0.1 [facility] Comment on above: Performed By: #### C T/NGNA #### [facility] [address] [address] [address] Donis Mancini Basophils/100 WBC (Bld) 0.2 % Normal 0.2-2.0 [facility] Comment on above: Performed By: #### C T/NGNA #### [facility] [address] [place] [address] Dr. Donis Mancini EO # 0.1 103/ul Normal 0.0-0.7 [facility] Comment on above: Performed By: #### C T/NGNA #### [facility] [address] [place] [address] Dr. Donis Mancini Eosinophils/100 WBC (Bld) 0.5 % Critically low 0.9-7.0 [facility] Comment on above: Performed By: #### C T/NGNA #### [facility] [address] [place] [address] Dr. Donis Mancini Erythrocyte distribution width (RBC) [Ratio] 12.5 % Normal 11.0-15.0 [facility] Comment on above: Performed By: #### C T/NGNA #### [facility] [address] [place] [address] Dr. Donis Mancini Hematocrit (Bld) [Volume fraction] 35.9 % Critically low 36.0-48.0 [facility] Comment on above: Performed By: #### C T/NGNA #### [facility] [address] [place] [address] Dr. Donis Mancini Hemoglobin (Bld) [Mass/Vol] 12.4 g/dL Normal 12.0-16.0 [facility] Comment on above: Result Comment: michelet ent delivered Performed By: #### C T/NGNA #### [facility] [address] [place] [address] Dr. Donis Mancini IG # 0.10 10e3/ul Critically high 0.00-0.03 [facility] Comment on above: Performed By: #### C T/NGNA #### [facility] [address] [place] [address] Dr. Donis Mancini IG % 0.5 % Normal 0.0-0.5 [facility] Comment on above: Performed By: #### C T/NGNA #### [facility] [address] [address] [address] Donis Mancini LYMPH # 1.5 103/ul Normal 1.2-3.8 [facility] Comment on above: Performed By: #### C T/NGNA #### [facility] [address] [place] [address] Dr. Donis Mancini Lymphocytes/100 WBC (Bld) 7.6 % Critically low 20.5-60.0 [facility] Comment on above: Performed By: #### C T/NGNA #### [facility] [address] [place] [address] Dr. Donis Mancini MANUAL DIFF REQ NO Normal [facility] Comment on above: Performed By: #### C T/NGNA #### [facility] [address] [place] [address] Dr. Donis Mancini MCH (RBC) [Entitic mass] 32.2 pg Normal 26.7-34.0 [facility] Comment on above: Performed By: #### C T/NGNA #### [facility] [address] [place] [address] Dr. Donis Mancini MCHC (RBC) [Mass/Vol] 34.5 g/dL Normal 29.9-35.2 [facility] Comment on above: Performed By: #### C T/NGNA #### [facility] [address] [place] [address] Dr. Donis Mancini MCV (RBC) [Entitic vol] 93.2 fL Normal 81.0-99.0 [facility] Comment on above: Performed By: #### C T/NGNA #### [facility] [address] [place] [address] Dr. Donis Mancini MONO # 1.3 103/ul Critically high 0.3-0.8 [facility] Comment on above: Performed By: #### C T/NGNA #### [facility] [address] [place] [address] Dr. Donis Mancini Monocytes/100 WBC (Bld) 6.8 % Normal 1.7-12.0 [facility] Comment on above: Performed By: #### C T/NGNA #### [facility] [address] [address] [address] Donis Mancini NEUT # 16.2 103/ul Critically high 1.4-6.[address] [facility] Comment on above: Performed By: #### C T/NGNA #### [facility] [address] [address] [address] Donis Mancini Neutrophils/100 WBC (Bld) 84.4 % Critically high 43.0-75.0 [facility] Comment on above: Performed By: #### C T/NGNA #### [facility] [address] [place] [address] Dr. Donis Mancini Platelet mean volume (Bld) [Entitic vol] 11.8 fL Normal 9.5-13.5 [facility] Comment on above: Performed By: #### C T/NGNA #### [facility] [address] [place] [address] Dr. Donis Mancini PLT 156 103/ul Normal 150-450 [facility] Comment on above: Performed By: #### C T/NGNA #### [facility] [address] [place] [address] Dr. Donis Mancini RBC 3.85 106/ul Critically low 4.20-5.40 [facility] [place] Comment on above: Performed By: #### C T/NGNA #### [facility] [address] [place] [address] Dr. Donis Mancini WBC 19.2 103/ul Critically high 4.0-11.0 [facility] Comment on above: Performed By: #### C T/NGNA #### [facility] [address] [place] [address] Dr. Donis Mancini Covid-19 PCR ([facility])on 07-27 SARS-CoV-2 (COVID-19) RNA INESSA+probe Ql (Unsp spec) Not detected Normal NOT DETECTED [facility] Comment on above: Result Comment: When [...] for this test is supported by the Management Instructor of Health and Human Service's declaration that [...] be used). Performed By: #### C VDTBH ####[facility] [address] [place], [place] [address]Dr. Donis Mancini DRUG SCREEN RAPID (URINE)on 08-10-2022 AMP Negative Normal NEGATIVE [facility] Comment on above: Performed By: #### D RUGRPD ####[facility] [address] [place], [place] [address]Dr. Donis Mancini BAR Negative Normal NEGATIVE [facility] Comment on above: Performed By: #### D RUGRPD ####[facility] [address]xy[address] [place] [address]Dr. Yilan Mancini BUP Negative Normal NEGATIVE [facility] Comment on above: Performed By: #### D RUGRPD ####[facility] [address] [place] [address]Dr. Laceylan Mancini BZO Negative Normal NEGATIVE [facility] Comment on above: Performed By: #### D RUGRPD ####[facility] [address]fe[address] [place] [id number]. Laceylan Mancini ALEXA Negative Normal NEGATIVE [facility] Comment on above: Performed By: #### D RUGRPD ####[facility] [address] [place], [place] [address]Dr. Donis Mancini CUT-OFFS SEE BELOW Normal [facility] Comment on above: Result Comment: AMP (Amphetamine): 500ng/mL, BAR (Barbituates): 200 ng/mL, BZO (Benzodiazepines): 150 ng/mL, BUP (Buprenorphine): 10 ng/mL, ALEXA (Cocaine): 150 ng/mL, mAMP (Methamphetamine): 500 ng/mL, MTD (Methadone): 200 ng/mL, OPI (Opiates): 100 ng/mL, OXY (Oxycodone): 100 ng/mL, PCP (Phencyclidine): 25 ng/mL, PPX (Propoxyphene): 300 ng/mL, THC (Cannabinoids): 50 ng/mL, TCA (Trycyclic Antidepressants): 300 ng/mL Performed By: #### D RUGRPD ####[facility] Jzch[address] [place], [place] [address]Dr. [facility] DRUG CUT HEADER DRUG CLASS TEST SYSTEM CUT-OFF CONCENTRATIONS ARE FOLLOWS: Normal [facility] Comment on above: Performed By: #### D RUGRPD ####[facility] [address]ed[address] [place], [place] [address]Dr. Donis [facility] mAMP Negative Normal NEGATIVE [facility] Comment on above: Performed By: #### D RUGRPD ####[facility] [address] [place], [place] [address]Dr. Donis [facility] MTD Negative Normal NEGATIVE [facility] Comment on above: Performed By: #### D RUGRPD ####[facility] Jqfftg[address]pq[address] [place], [place] [address]Dr. [facility] OPI Negative Normal NEGATIVE [facility] Comment on above: Performed By: #### D RUGRPD ####[facility] Euirerxvb[address] [place], [place] [address]Dr. Laceyjavi Mancini OXY Negative Normal NEGATIVE [facility] Comment on above: Performed By: #### D RUGRPD ####[facility] [address]ukx[address] [place], [place] [address]Dr. [facility] PCP Negative Normal NEGATIVE [facility] Comment on above: Performed By: #### D RUGRPD ####[facility] Jcpoqv[address] [place], [place] [address]Dr. [facility] PPX Negative Normal NEGATIVE [facility] Comment on above: Performed By: #### D RUGRPD ####[facility] [address]tx[address]vjzr[address] [place] [id number]. Donis Mancini TCA Negative Normal NEGATIVE [facility] Comment on above: Performed By: #### D RUGRPD ####[facility] [address]so[address] [place], [place] [address]Su. Donis Mancini THC Negative Normal NEGATIVE [facility] Comment on above: Performed By: #### D RUGRPD ####[facility] [address] [place] [id number]. Donis Mancini TYPE AND SCREENon 08-10-2022 TYPE AND SCREEN Negative Normal [facility] [place] Comment on above: Performed By: #### T NS ####[facility] T[address]xatc[address] [place] [address]Dr. Donis Mancini US PREG BIOPHY W NON [...] ESTEFANY BENNETT Date: 2022-08-10 07:18 Normal [facility] US PREG GROWTHon 08-10-2022 US PREG [...] ESTEFANY BENNETT Date: 2022-08-10 07:16 Normal [facility] CBC AUTO DIFFon 08-09-2022 BASO # 0.0 103/ul Normal 0.0-0.1 [facility] Comment on above: Performed By: #### C BC ####[facility] [address] [place] [address]Dr. Donis Mancini Basophils/100 WBC (Bld) 0.2 % Normal 0.2-2.0 [facility] Comment on above: Performed By: #### C BC ####[facility] [address] [place], [place] [address]DrGene Mancini EO # 0.4 103/ul Normal 0.0-0.7 [facility] Comment on above: Performed By: #### C BC ####[facility] [address]klatp[address] [place] [address]DrGene Mancini Eosinophils/100 WBC (Bld) 2.8 % Normal 0.9-7.0 [facility] Comment on above: Performed By: #### C BC ####[facility] Oqvjrgbjei[address] [place] [address]DrGene Mancini Erythrocyte distribution width (RBC) [Ratio] 12.2 % Normal 11.0-15.0 [facility] Comment on above: Performed By: #### C BC ####[facility] Qtirlyclon[address] [place], [place] [address]DrGene Mancini Hematocrit (Bld) [Volume fraction] 41.4 % Normal 36.0-48.0 [facility] Comment on above: Performed By: #### C BC ####[facility] M[address] [place], [place] [address]Dr. Donis Mancini Hemoglobin (Bld) [Mass/Vol] 14.4 g/dL Normal 12.0-16.0 [facility] Comment on above: Performed By: #### C BC ####[facility] [address] [place] [address]Dr. Donis Live IG # 0.06 10e3/ul Critically high 0.00-0.03 [facility] [place] Comment on above: Performed By: #### C BC ####[facility] In[address] [place] [address]Dr. Donis Mancini IG % 0.5 % Normal 0.0-0.5 [facility] Comment on above: Performed By: #### C BC ####[facility] [address]tr[address] [place] [address]Dr. Donis Mancini LYMPH # 1.5 103/ul Normal 1.2-3.8 [facility] Comment on above: Performed By: #### C BC ####[facility] [address]rx[address]so[address] [place] [address]Dr. Donis Mancini Lymphocytes/100 WBC (Bld) 11.7 % Critically low 20.5-60.0 [facility] Comment on above: Performed By: #### C BC ####[facility] [address] [place] [address]Dr. Donis Mancini MANUAL DIFF REQ NO Normal [facility] Comment on above: Performed By: #### C BC ####[facility] [address]jpjiuvmn[address] [place] [id number]. Donis Mancini MCH (RBC) [Entitic mass] 31.9 pg Normal 26.7-34.0 [facility] Comment on above: Performed By: #### C BC ####[facility] [address] [place] [address]Dr. Donis Live MCHC (RBC) [Mass/Vol] 34.8 g/dL Normal 29.9-35.2 [facility] Comment on above: Performed By: #### C BC ####[facility] [address] [place] [id number]. Donis Mancini MCV (RBC) [Entitic vol] 91.8 fL Normal 81.0-99.0 [facility] Comment on above: Performed By: #### C BC ####[facility] [address]xst[address] [place] [id number]. Donis Mancini MONO # 1.0 103/ul Critically high 0.3-0.8 [facility] [place] Comment on above: Performed By: #### C BC ####[facility] Mhbmifyvif[address] [place] [id number]. Donis Mancini Monocytes/100 WBC (Bld) 7.5 % Normal 1.7-12.0 [facility] Comment on above: Performed By: #### C BC ####[facility] [address]pp[address] [place] [id number]. Donis Mancini NEUT # 10.0 103/ul Critically high 1.4-6.5 [facility] Comment on above: Performed By: #### C BC ####[facility] [address] [place] [address]Dr. Donis Live Neutrophils/100 WBC (Bld) 77.3 % Critically high 43.0-75.0 [facility] Comment on above: Performed By: #### C BC ####[facility] [address] [place] [address]Dr. Donis Mancini Platelet mean volume (Bld) [Entitic vol] 11.6 fL Normal 9.5-13.5 [facility] Comment on above: Performed By: #### C BC ####[facility] [address]fs[address] [place] [id number]. Donis Mancini PLT 184 103/ul Normal 150-450 [facility] Comment on above: Performed By: #### C BC ####[facility] [address]zfq[address] [place] [id number]. Donis Live RBC 4.51 106/ul Normal 4.20-5.40 [facility] Comment on above: Performed By: #### C BC ####[facility] [address]cl[address] [place] [id number]. Donis Mancini WBC 12.9 103/ul Critically high 4.0-11.0 [facility] Comment on above: Performed By: #### C BC ####[facility] [address] [place], [place] [address]Dr. Donis Mancini LDHon 08-09-2022 LDH 167 U/L Normal 81-234 [facility] Comment on above: Performed By: #### C T/NGNA #### [facility] [address] [place] [address] [address] Donis Mancini PROF 14(COMP METB)on 022 Albumin [Mass/Vol] 2.7 g/dL Critically low 3.4-5.0 [facility] Comment on above: Performed By: #### C T/NGNA #### [facility] [address] [place] [address] [address] Donsi Mancini Albumin/Globulin [Mass ratio] 0.6 {ratio} Normal [facility] Comment on above: Performed By: #### C T/NGNA #### [facility] [address] [place] [address] [address] Donis Mancini ALP [Catalytic activity/Vol] 176 U/L Critically high 46-116 [facility] Comment on above: Performed By: #### C T/NGNA #### [facility] [address] [place] [address] [address] Donis Mancini ALT [Catalytic activity/Vol] 20 U/L Normal 14-59 [facility] Comment on above: Performed By: #### C T/NGNA #### [facility] [address] [place] [address] [address] Donis Mancini Anion gap [Moles/Vol] 12.9 mmol/L Normal [facility] Comment on above: Performed By: #### C T/NGNA #### [facility] [address] [place] [address] [address] Donis Mancini AST [Catalytic activity/Vol] 20 U/L Normal 15-37 [facility] Comment on above: Performed By: #### C T/NGNA #### [facility] [address] [place] [address] [address] Donis Mancini Bilirubin [Mass/Vol] 0.1 mg/dL Critically low 0.2-1.0 [facility] Comment on above: Performed By: #### C T/NGNA #### [facility] [address] [place] [address] Dr. Donis Mancini Calcium [Mass/Vol] 9.1 mg/dL Normal 8.5-10.1 [facility] Comment on above: Performed By: #### C T/NGNA #### [facility] [address] [place] [address] Dr. Donis Mancini Chloride [Moles/Vol] 104 mmol/L Normal 98-107 [facility] Comment on above: Performed By: #### C T/NGNA #### [facility] [address] [place] [address] Dr. Donis Mancini CO2 [Moles/Vol] 22.9 mmol/L Normal 21.0-32.[address] [facility] Comment on above: Performed By: #### C T/NGNA #### [facility] [address] [place] [address] Dr. Donis Mancini Creatinine [Mass/Vol] 0.43 mg/dL Critically low 0.55-1.02 [facility] Comment on above: Performed By: #### C T/NGNA #### [facility] [address] [place] [address] Dr. Donis Mancini EGFR-AF ICELANDIC >60 Normal >=[address] [facility] Comment on above: Performed By: #### C T/NGNA #### [facility] [address] [place] [address] Dr. Donis Mancini EGFR-NON AF ICELANDIC >60 Normal >=60 [facility] Comment on above: Performed By: #### C T/NGNA #### [facility] [address] [place] [address] Dr. Donis Mancini Globulin (S) [Mass/Vol] 4.2 g/dL Normal [facility] Comment on above: Performed By: #### C T/NGNA #### [facility] [address] [place] [address] Dr. Donis Mancini Glucose [Mass/Vol] 95 mg/dL Normal 74-106 [facility] Comment on above: Performed By: #### C T/NGNA #### [facility] [address] [place] [address] Dr. Donis Mancini Potassium [Moles/Vol] 3.8 mmol/L Normal 3.5-5.1 [facility] Comment on above: Performed By: #### C T/NGNA #### [facility] [address] [place] [address] Dr. Donis Mancini Protein [Mass/Vol] 6.9 g/dL Normal 6.4-8.2 [facility] Comment on above: Performed By: #### C T/NGNA #### [facility] [address] [place] [address] Dr. Donis Mancini Sodium [Moles/Vol] 136 mmol/L Normal 136-145 [facility] Comment on above: Performed By: #### C T/NGNA #### [facility] [address] [place] [address] Dr. Donis Mancini Urea nitrogen [Mass/Vol] 10.0 mg/dL Normal 7.0-18.0 [facility] Comment on above: Performed By: #### C T/NGNA #### [facility] [address] [place] [address] Dr. Donis Mancini Urea nitrogen/Creatinine [Mass ratio] 23.3 mg/mg Normal [facility] Comment on above: Performed By: #### C T/NGNA #### [facility] [address] [place] [address] Dr. Donis Mancini URIC ACID SERUMon 08-09-2022 Urate [Mass/Vol] 3.6 mg/dL Normal 2.6-6.[address] [facility] Comment on above: Performed By: #### C T/NGNA #### [facility] [address] [place] [address] Dr. Donis Mancini CBC AUTO DIFFon 08-07-2022 BASO # 0.0 103/ul Normal 0.0-0.1 [facility] Comment on above: Performed By: #### U AMIC #### [facility] [address] [place] [address] [address] Donis Mancini Basophils/100 WBC (Bld) 0.2 % Normal 0.2-2.0 [facility] Comment on above: Performed By: #### U AMIC #### [facility] [address] [place] [address] [address] Donis Mancini EO # 0.2 103/ul Normal 0.0-0.7 [facility] Comment on above: Performed By: #### U AMIC #### [facility] [address] [place] [address] [address] Donis Mancini Eosinophils/100 WBC (Bld) 1.8 % Normal 0.9-7.0 [facility] Comment on above: Performed By: #### U AMIC #### [facility] [address] [place] [address] Dr. Donis Mancini Erythrocyte distribution width (RBC) [Ratio] 12.3 % Normal 11.0-15.0 [facility] Comment on above: Performed By: #### U AMIC #### [facility] [address] [place] [address] [address] Donis Mancini Hematocrit (Bld) [Volume fraction] 45.7 % Normal 36.0-48.0 [facility] Comment on above: Performed By: #### U AMIC #### [facility] [address] [place] [address] Dr. Donis Mancini Hemoglobin (Bld) [Mass/Vol] 16.0 g/dL Normal 12.0-16.0 [facility] Comment on above: Performed By: #### U AMIC #### [facility] [address] [place] [address] [address] Donis Mancini IG # 0.07 10e3/ul Critically high 0.00-0.03 [facility] [place] Comment on above: Performed By: #### U AMIC #### [facility] [address] [place] [address] [address] Donis Mancini IG % 0.5 % Normal 0.0-0.5 [facility] Comment on above: Performed By: #### U AMIC #### [facility] [address] [place] [address] [address] Donis Mancini LYMPH # 1.5 103/ul Normal 1.2-3.8 [facility] Comment on above: Performed By: #### U AMIC #### [facility] [address] [place] [address] [address] Donis Mancini Lymphocytes/100 WBC (Bld) 11.2 % Critically low 20.5-60.0 [facility] Comment on above: Performed By: #### U AMIC #### [facility] [address] [place] [address] [address] Donis Mancini MANUAL DIFF REQ NO Normal [facility] Comment on above: Performed By: #### U AMIC #### [facility] [address] [place] [address] [address] Donis Mancini MCH (RBC) [Entitic mass] 32.0 pg Normal 26.7-34.0 [facility] Comment on above: Performed By: #### U AMIC #### [facility] [address] [place] [address] [address] Donis Mancini MCHC (RBC) [Mass/Vol] 35.0 g/dL Normal 29.9-35.2 [facility] Comment on above: Performed By: #### U AMIC #### [facility] [address] [place] [address] [address] Donis Manicni MCV (RBC) [Entitic vol] 91.4 fL Normal 81.0-99.0 [facility] Comment on above: Performed By: #### U AMIC #### [facility] [address] [place] [address] [address] Donis Mancini MONO # 0.9 103/ul Critically high 0.3-0.8 [facility] Comment on above: Performed By: #### U AMIC #### [facility] [address] [place] [address] [address] Donis Mancini Monocytes/100 WBC (Bld) 6.3 % Normal 1.7-12.0 [facility] Comment on above: Performed By: #### U AMIC #### [facility] [address] [place], [place] [address] Dr. Donis Mancini NEUT # 10.9 103/ul Critically high 1.4-6.[address] [facility] Comment on above: Performed By: #### U AMIC #### [facility] [address] [place], [place] [address] Dr. Donis Mancini Neutrophils/100 WBC (Bld) 80.0 % Critically high 43.0-75.0 [facility] Comment on above: Performed By: #### U AMIC #### [facility] [address] [place] [address] [address] Donis Mancini Platelet mean volume (Bld) [Entitic vol] 11.5 fL Normal 9.5-13.5 [facility] Comment on above: Performed By: #### U AMIC #### [facility] [address] [place] [address] [address] Donis Mancini PLT 182 103/ul Normal 150-450 [facility] Comment on above: Performed By: #### U AMIC #### [facility] [address] [place] [id number] Donis Mancini RBC 5.00 106/ul Normal 4.20-5.40 [facility] Comment on above: Performed By: #### U AMIC #### [facility] [address] [place] [id number] Donis Mancini WBC 13.6 103/ul Critically high 4.0-11.[address] [facility] Comment on above: Performed By: #### U AMIC #### [facility] [address] [id number] Donis Mancini LDHon 08-07-2022 LDH 171 U/L Normal 81-234 [facility] Comment on above: Performed By: #### C MP, URIC, LDH ####[facility] [address] [place], [place] [address]CwDr. Donis Mancini PROF 14(COMP METB)on 022 Albumin [Mass/Vol] 2.9 g/dL Critically low 3.4-5.0 [facility] Comment on above: Performed By: #### C MP, URIC, LDH ####[facility] [address] [place] [address]Dr. Donis Mancini Albumin/Globulin [Mass ratio] 0.6 {ratio} Normal [facility] Comment on above: Performed By: #### C MP, URIC, LDH ####[facility] [address] [place] [address]Dr. Donis Mancini ALP [Catalytic activity/Vol] 192 U/L Critically high 46-116 [facility] Comment on above: Performed By: #### C MP, URIC, LDH ####[facility] [address] [place], [place] [address]Dr. Donis Mancini ALT [Catalytic activity/Vol] 23 U/L Normal 14-59 [facility] Comment on above: Performed By: #### C MP, URIC, LDH ####[facility] [address] [place], [place] [address]Dr. Donis Mancini Anion gap [Moles/Vol] 14.4 mmol/L Normal [facility] Comment on above: Performed By: #### C MP, URIC, LDH ####[facility] [address] [place], [place] [address]Dr. Donis Mancini AST [Catalytic activity/Vol] 23 U/L Normal 15-37 [facility] Comment on above: Performed By: #### C MP, URIC, LDH ####[facility] [address] [place], [place] [address]Dr. Donis Mancini Bilirubin [Mass/Vol] 0.2 mg/dL Normal 0.2-1.0 [facility] Comment on above: Performed By: #### C MP, URIC, LDH ####[facility] [address] [place], [place] [address]Dr. Donis Mancini Calcium [Mass/Vol] 9.4 mg/dL Normal 8.5-10.1 [facility] Comment on above: Performed By: #### C MP, URIC, LDH ####[facility] [address] [place], [place] [address]Dr. Donis Mancini Chloride [Moles/Vol] 104 mmol/L Normal 98-107 [facility] Comment on above: Performed By: #### C MP, URIC, LDH ####[facility] [address] [place] [address]Dr. Donis Mancini CO2 [Moles/Vol] 21.7 mmol/L Normal 21.0-32.0 [facility] Comment on above: Performed By: #### C MP, URIC, LDH ####[facility] [address] [place] [address]Dr. Donis Mancini Creatinine [Mass/Vol] 0.46 mg/dL Critically low 0.55-1.02 [facility] Comment on above: Performed By: #### C MP, URIC, LDH ####[facility] [address] [place] [address]Dr. Donis Mancini EGFR-AF ICELANDIC >60 Normal >=60 [facility] Comment on above: Performed By: #### C MP, URIC, LDH ####[facility] [address] [place] [address]Dr. Donis Mancini EGFR-NON AF ICELANDIC >60 Normal >=60 [facility] Comment on above: Performed By: #### C MP, URIC, LDH ####[facility] [address] [place] [address]Dr. Donis Mancini Globulin (S) [Mass/Vol] 4.6 g/dL Normal [facility] Comment on above: Performed By: #### C MP, URIC, LDH ####[facility] [address] [place] [address]Dr. Donis Mancini Glucose [Mass/Vol] 89 mg/dL Normal 74-106 [facility] Comment on above: Performed By: #### C MP, URIC, LDH ####[facility] [address] [place] [address]Dr. Donis Mancini Potassium [Moles/Vol] 4.1 mmol/L Normal 3.5-5.1 [facility] Comment on above: Performed By: #### C MP, URIC, LDH ####[facility] [address] [place] [address]Dr. Donis Mancini Protein [Mass/Vol] 7.5 g/dL Normal 6.4-8.2 [facility] Comment on above: Performed By: #### C MP, URIC, LDH ####[facility] [address] [place] [id number]. Donis Mancini Sodium [Moles/Vol] 136 mmol/L Normal 136-145 [facility] Comment on above: Performed By: #### C MP, URIC, LDH ####[facility] [address]kw[address] [place] [address]Dr. Donis Mancini Urea nitrogen [Mass/Vol] 8.0 mg/dL Normal 7.0-18.0 [facility] Comment on above: Performed By: #### C MP, URIC, LDH ####[facility] [address] [place] [place] [address]Dr. Donis Mancini Urea nitrogen/Creatinine [Mass ratio] 17.4 mg/mg Normal [facility] Comment on above: Performed By: #### C MP, URIC, LDH ####[facility] [address] [place] [address]DrGene Mancini PROTIMEon 08-07-2022 INR Coag (PPP) [Relative time] {INR} Normal [facility] Comment on above: Performed By: #### U AMIC #### [facility] [address] [place] [address] Dr. Donis Mancini INR GUIDELINES SEE BELOW Normal [facility] Comment on above: Result Comment: NICCI RED INR: 2.0 - 3.0 CONDITIONS NOT LISTED BELOW 2.5 - 3.5 FOR PROSTHETIC HEART VALVE REPLACEMENT 2.5 - 3.5 RECURRENT THROMBOSIS Performed By: #### U AMIC #### [facility] [address] [address] [address] Donis Mancini PT Coag (PPP) [Time] 9.8 s Normal 9.0-11.6 [facility] Comment on above: Performed By: #### U AMIC #### [facility] [address] [place] [address] Dr. Donis Mancini PTTon 08-07-2022 aPTT Coag (Bld) [Time] 28.5 s Normal 22.3-36.2 [facility] Comment on above: Performed By: #### U AMIC #### [facility] [address] [place] [address] Dr. Donis Mancini UA (CLEAN/CATCH) LOAD OUT PERSON/MICRO I F IND.on 08-07-2022 Bilirubin Ql (U) Negative Normal NEGATIVE [facility] Comment on above: Performed By: #### U AMIC #### [facility] [address] [place] [address] Dr. Donis Mancini Clarity (U) CLEAR Normal CLEAR [facility] Comment on above: Performed By: #### U AMIC #### [facility] [address] [place] [address] Dr. Donis Mancini Color (U) LT. YELLOW Normal YELLOW [facility] Comment on above: Performed By: #### U AMIC #### [facility] [address] [place] [address] Dr. Donis Mancini Glucose Ql (U) Negative Normal NEGATIVE [facility] Comment on above: Performed By: #### U AMIC #### [facility] [address] [place] [address] Dr. Donis Mancini Hemoglobin Ql (U) Negative Normal NEGATIVE [facility] [place] Comment on above: Performed By: #### U AMIC #### [facility] [address] [place] [address] Dr. Donis Mancini Ketones Ql (U) Negative Normal NEGATIVE [facility] Comment on above: Performed By: #### U AMIC #### [facility] [address] [place] [address] Dr. Donis Mancini LEUKOCYTES Negative Normal NEGATIVE [facility] Comment on above: Performed By: #### U AMIC #### [facility] [address] [place] [address] Dr. Donis Mancini Nitrite Ql (U) Negative Normal NEGATIVE [facility] Comment on above: Performed By: #### U AMIC #### [facility] [address] [address] [address] Donis Mancini pH (U) 7.0 [pH] Normal 5-9 [facility] Comment on above: Performed By: #### U AMIC #### [facility] [address] [address] [address] Donis Mancini SPEC GRAVITY <=1.005 Abnormal 1.005-<=1.02 5 [facility] Comment on above: Performed By: #### U AMIC #### [facility] [address] [place] [address] Dr. Donis Mancini UA PROTEIN Negative Normal NEGATIVE/ TRACE [facility] Comment on above: Performed By: #### U AMIC #### [facility] [address] [place] [address] Dr. Donis Mancini UR MICRO IND NOT INDICATED Normal [facility] [place] Comment on above: Performed By: #### U AMIC #### [facility] [address] [place] [address] Dr. Donis Mancini Urobilinogen Qn (U) 0.2 {Sarah'U}/dL Normal 0.2 - 1. 0 [facility] Comment on above: Performed By: #### U AMIC #### [facility] [address] [place] [address] Dr. Donis Mancini URIC ACID SERUMon 08-07-2022 Urate [Mass/Vol] 3.8 mg/dL Normal 2.6-6.0 [facility] Comment on above: Performed By: #### C MP, URIC, LDH ####[facility] [address] [place] [address]Dr. Donis Mancini URINE T PROTEIN CREAT RATIOo n 08-07-2022 UR TOTAL PROTEIN <6.0 Normal <=12.0 [facility] Comment on above: Performed By: #### C T/NGNA #### [facility] [address] [place] [address] Dr. Donis Mancini URINE CREAT 13.45 mg/dL Critically low 20.00-300.00 [facility] Comment on above: Performed By: #### C T/NGNA #### [facility] [address] [address] [address] Donis Mancini US PREG BIOPHY W [...] COCO STERN Date: 2022-08-01 08:31 Normal [facility] CHLAMYDIA/GONOCOCCUS INESSA ( AB/URINE/PAPon 07-31-2022 Chlamydia trachomatis, INESSA Negative Normal Negative [facility] Comment on above: Performed By: #### C T/NGNA #### [facility] [address] [place] [address] Dr. Donis Mancini Neisseria gonorrhoeae, INESSA Negative Normal Negative [facility] Comment on above: Performed By: #### C T/NGNA #### [facility] [address] [place] [address] Dr. Donis Mancini VAGINITIS/VAGINOSIS DNA PROB Domenic 07-31-2022 Simeon species Negative Normal Negative The [facility] [place] Comment on above: Performed By: #### V AGINT ####[facility] [address] [place], [place] [address]DrGene Mancini Gardnerella vaginalis Negative Normal Negative [facility] Comment on above: Performed By: #### V AGINT ####[facility] [address] [place] [address]DrGene Mancini Trichomonas vaginalis Negative Normal Negative [facility] Comment on above: Performed By: #### V AGINT ####[facility] [address] [place] [address]DrGene Mancini GROUP B STREP CULTUREon S. agalactiae Ag Ql (Unsp spec) Culture Observations: NEGATIVE FOR GROUP B STREPTOCOCCUS. Normal [facility] Comment on above: Performed By: #### G BSCX #### [facility] [address] [place] [address] Dr. Donis Mancini US PREG BIOPHY W [...] COCO STERN Date: 2022-07-25 09:41 Normal [facility] US PREG GROWTHon 07-11-2022 US PREG [...] by: ESTEFANY BENNETT Date: 2022-07-11 19:28 Normal [facility]26 SARS-CoV-2 (COVID-19) RNA INESSA+probe Ql (Unsp spec) Not detected Normal NOT DETECTED [facility] Comment on above: Result Comment: When [...] for this test is supported by the [place] of Health and Human Service's declaration that [...] used). Performed By: #### C T/NGNA #### [facility] [address] [place] [address] Dr. Donis Mancini GTT 3 HR PREGon 06-03-2022 Glucose [Mass/Vol] 94 mg/dL Normal 74-106 [facility] Comment on above: Performed By: #### U AMIC #### [facility] [address] [place] [address] Dr. Donis Mancini Glucose [Mass/Vol] 147 mg/dL Normal [facility] Comment on above: Performed By: #### U AMIC #### [facility] [address] [place] [address] Dr. Donis Mancini Glucose [Mass/Vol] 159 mg/dL Normal [facility] Comment on above: Performed By: #### U AMIC #### [facility] [address] [place] [address] Dr. Donis Mancini Glucose [Mass/Vol] 151 mg/dL Normal [facility] Comment on above: Performed By: #### U AMIC #### [facility] [address] [place] [address] Dr. Donis Mancini GLUCOSE - 1HRon 05-21-2022 Glucose [Mass/Vol] 141 mg/dL Critically high 74-106 T [facility] Comment on above: Performed By: #### U AMIC #### [facility] [address] [place] [address] Dr. Donis Mancini HEMOGRAM AND PLATELon 2021 Hematocrit (Bld) [Volume fraction] 39.1 % Normal 36.0-48.0 [facility] Comment on above: Performed By: #### U AMIC #### [facility] [address] [place] [address] Dr. Donis Mancini Hemoglobin (Bld) [Mass/Vol] 13.1 g/dL Normal 12.0-16.0 [facility] Comment on above: Performed By: #### U AMIC #### [facility] [address] [place] [address] Dr. Donis Mancini MCH (RBC) [Entitic mass] 32.3 pg Normal 26.7-34.0 [facility] Comment on above: Performed By: #### U AMIC #### [facility] [address] [place] [address] Dr. Donis Mancini MCHC (RBC) [Mass/Vol] 33.5 g/dL Normal 29.9-35.2 [facility] Comment on above: Performed By: #### U AMIC #### [facility] [address] [place] [address] Dr. Donis Mancini MCV (RBC) [Entitic vol] 96.5 fL Normal 81.0-99.0 [facility] Comment on above: Performed By: #### U AMIC #### [facility] [address] [place] [address] Dr. Donis Mancini PLT 220 103/ul Normal 150-450 [facility] Comment on above: Performed By: #### U AMIC #### [facility] [address] [place] [address] Dr. Donis Mancini RBC 4.05 106/ul Critically low 4.20-5.40 [facility] [place] Comment on above: Performed By: #### U AMIC #### [facility] [address] [address] [address] Donis Mancini WBC 12.8 103/ul Critically high 4.0-11.0 [facility] Comment on above: Performed By: #### U AMIC #### [facility] [address] [address] [address] Donis Mancini US PREG BIOPHYSICAL NO [...] ESTEFANY BENNETT Date: 2022-05-11 06:25 Normal [facility] CULTURE URINEon 05-10-2022 CULTURE URINE Culture Observations: MODERATE GROWTH OF MIXED GENITAL RAMBO. NO POTENTIAL PATHOGENS SEEN. Normal [facility] Comment on above: Performed By: #### U RCX #### [facility] [address] [address] [address] Donis Mancini UA RANDOM W/MICROSCOPICon BACTERIA LARGE Abnormal NONE SEEN [facility] Comment on above: Performed By: #### U AMIC ####[facility] [address] [place] [address]DrGene Mancini Bilirubin Ql (U) Negative Normal NEGATIVE [facility] Comment on above: Performed By: #### U AMIC ####[facility] [address] [place] [address]DrGene Mancini CAST NONE SEEN Normal NONE SEEN [facility] Comment on above: Performed By: #### U AMIC ####[facility] [address] [place] [address]DrGene Mancini Clarity (U) CLEAR Normal CLEAR [facility] Comment on above: Performed By: #### U AMIC ####[facility] [address] [place] [address]Dr. Donis Mancini Color (U) YELLOW Normal YELLOW [facility] Comment on above: Performed By: #### U AMIC ####[facility] [address] [place] [address]Dr. Donis Mancini Crystals LM Nom (Urine sed) NONE SEEN Normal NONE SEEN [facility] Comment on above: Performed By: #### U AMIC ####[facility] [address] [place] [address]Dr. Donis Mancini Epithelial cells LM Ql (Urine sed) MODERATE Abnormal NONE SEEN /RARE [facility] Comment on above: Performed By: #### U AMIC ####[facility] [address] [place] [address]Dr. Donis Mancini Glucose Ql (U) 250 mg/dl Abnormal NEGATIVE [facility] Comment on above: Performed By: #### U AMIC ####[facility] [address] [place] [address]Dr. Donis Mancini Hemoglobin Ql (U) TRACE-INTACT Abnormal NEGATIVE [facility] Comment on above: Performed By: #### U AMIC ####[facility] [address] [place], [place] [address]Dr. Donis Mancini Ketones Ql (U) Negative Normal NEGATIVE [facility] Comment on above: Performed By: #### U AMIC ####[facility] [address] [place] [address]Dr. Donis Mancini LEUKOCYTES LARGE Abnormal NEGATIVE [facility] Comment on above: Performed By: #### U AMIC ####[facility] [address] [place] [address]Dr. Donis Mancini MUCOUS NONE SEEN Normal NONE SEEN [facility] Comment on above: Performed By: #### U AMIC ####[facility] [address] [place], [place] [address]Dr. Donis Mancini Nitrite Ql (U) Negative Normal NEGATIVE [facility] Comment on above: Performed By: #### U AMIC ####[facility] [address] [place] [address]DrGene Mancini pH (U) 6.0 [pH] Normal 5-9 [facility] Comment on above: Performed By: #### U AMIC ####[facility] [address] [place] [address]Dr. Donis Mancini RBC 2-5 Abnormal 0-2 [facility] Comment on above: Performed By: #### U AMIC ####[facility] [address] [place] [address]DrGene Mancini SPEC GRAVITY <=1.005 Abnormal 1.005-<=1.02 5 [facility] Comment on above: Performed By: #### U AMIC ####[facility] [address] [place], [place] [address]DrGene Mancini UA PROTEIN Negative Normal NEGATIVE/ TRACE [facility] Comment on above: Performed By: #### U AMIC ####[facility] [address] [place], [place] [address]Dr. Donis Mancini Urobilinogen Qn (U) 0.2 {Sarah'U}/dL Normal 0.2 - 1. 0 [facility] Comment on above: Performed By: #### U AMIC ####[facility] [address] [place], [place] [address]Dr. Donis Mancini WBC 10-20 Abnormal NONE SEEN [facility] Comment on above: Performed By: #### U AMIC ####[facility] [address] [place], [place] [address]Dr. Donis Mancini CULTURE URINEon 04-27-2022 CULTURE URINE Culture Observations: LIGHT GROWTH OF MIXED GENITAL RAMBO. NO POTENTIAL PATHOGENS SEEN. Normal [facility] Comment on above: Performed By: #### U RCX ####[facility] [address] [place], [place] [address]DrGene Mancini UA (CLEAN/CATCH) LOAD OUT PERSON/MICRO I F IND.on 04-27-2022 Bilirubin Ql (U) Negative Normal NEGATIVE [facility] Comment on above: Performed By: #### U ACSIND, UMICRO ####[facility] [address] [place], [place] [address]DrGene Mancini Clarity (U) CLEAR Normal CLEAR [facility] Comment on above: Performed By: #### U ACSIND, UMICRO ####[facility] [address] [place] [address]Dr. Donis Mancini Color (U) LT. YELLOW Normal YELLOW [facility] Comment on above: Performed By: #### U ACSIND, UMICRO ####[facility] [address] [place] [address]Dr. Donis Mancini Glucose Ql (U) Negative Normal NEGATIVE [facility] Comment on above: Performed By: #### U ACSIND, UMICRO ####[facility] [address] [place] [place] [address]Dr. Donis Mancini Hemoglobin Ql (U) Negative Normal NEGATIVE [facility] [place] Comment on above: Performed By: #### U ACSIND, UMICRO ####[facility] [address] [place] [place] [address]Dr. Donis Mancini Ketones Ql (U) Negative Normal NEGATIVE [facility] Comment on above: Performed By: #### U ACSWENDY, UMICRO ####[facility] [address] [place], [place] [address]Dr. Donis Mancini LEUKOCYTES SMALL Abnormal NEGATIVE [facility] Comment on above: Performed By: #### U ACSWENDY, UMICRO ####[facility] [address] [place] [address]Dr. Donis Mancini Nitrite Ql (U) Negative Normal NEGATIVE [facility] Comment on above: Performed By: #### U ACSWENDY, UMICRO ####[facility] [address] [place] [address]Dr. Donis Mancini pH (U) 7.0 [pH] Normal 5-9 [facility] Comment on above: Performed By: #### U ACSWENDY, UMICRO ####[facility] [address] [place] [address]Dr. Donis Mancini SPEC GRAVITY 1.015 Normal 1.005-<=1.02 5 [facility] Comment on above: Performed By: #### U ACSIND, UMICRO ####[facility] [address] [place] [address]Dr. Donis Mancini UA PROTEIN Negative Normal NEGATIVE/ TRACE [facility] Comment on above: Performed By: #### U ACSWENDY, UMICRO ####[facility] [address] [place] [address]Dr. Donis Mancini UR MICRO IND INDICATED Normal [facility] Comment on above: Performed By: #### U ACSWENDY, UMICRO ####[facility] [address] [place] [address]Dr. Donis Mancini Urobilinogen Qn (U) 0.2 {Sarah'U}/dL Normal 0.2 - 1. 0 [facility] Comment on above: Performed By: #### U ACSWENDY UMICRO ####[facility] [address] [place] [address]Dr. Donis Mancini URINE MICROSCOPIC ONLYon BACTERIA MODERATE Abnormal NONE SEEN [facility] Comment on above: Performed By: #### U NELSON UMICRO ####[facility] [address] [place] [address]Dr. Donis Mancini Bacteria identified Cx Nom (U) INDICATED Normal [facility] Comment on above: Performed By: #### U ACSWENDY UMICRO ####[facility] [address] [place] [address]Dr. Donis Mancini CAST NONE SEEN Normal NONE SEEN [facility] Comment on above: Performed By: #### U ACSWENDY UMICRO ####[facility] [address] [place] [address]Dr. Donis Mancini Crystals LM Nom (Urine sed) NONE SEEN Normal NONE SEEN [facility] Comment on above: Performed By: #### U ACSWENDY, UMICRO ####[facility] [address] [place] [address]Dr. Donis Mancini Epithelial cells LM Ql (Urine sed) MODERATE Abnormal NONE SEEN /RARE [facility] Comment on above: Performed By: #### U ACSWENDY, UMICRO ####[facility] [address] [place], [place] [address]Eu. Donis Mancini MUCOUS NONE SEEN Normal NONE SEEN [facility] Comment on above: Performed By: #### U DONNA DAMON ####[facility] [address] [place], [place] [address]Jn. Donis Mancini RBC NONE SEEN Abnormal 0-2 [facility] Comment on above: Performed By: #### U DONNA DAMON ####[facility] [address] [place], [place] [address]Xl. Donis Mancini WBC 2-5 Abnormal NONE SEEN [facility] Comment on above: Performed By: #### U DONNA DAMON ####[facility] [address] [place] [id number]. Donis Mancini US KIDNEYSon 04-27-2022 US KIDNEYS [...] ANDREAS AN Date: 2022-04-27 17:48 Normal [facility] CULTURE URINEon 04-16-2022 CULTURE URINE Isolate [...] F Trimethoprim/Sulfame thoxazole <=20 S F Normal [facility] Comment on above: Performed By: #### U RCX #### [facility] [address] [place] [address] Dr. Donis Mancini US PREG ANATOMY SINGLEon [...] by: ESTEFANY BENNETT Date: 2022-04-12 22:22 Normal [facility] UA RANDOM W/MICROSCOPICon BACTERIA SMALL Abnormal NONE SEEN [facility] Comment on above: Performed By: #### U AMIC #### [facility] [address] [address] [address] Donis Mancini Bilirubin Ql (U) Negative Normal NEGATIVE [facility] Comment on above: Performed By: #### U AMIC #### [facility] [address] [address] [address] Donis Mancini CAST NONE SEEN Normal NONE SEEN [facility] Comment on above: Performed By: #### U AMIC #### [facility] [address] [address] [address] Donis Mancini Clarity (U) CLEAR Normal CLEAR [facility] Comment on above: Performed By: #### U AMIC #### [facility] [address] [place] [address] Dr. Donis Mancini Color (U) LT. YELLOW Normal YELLOW [facility] Comment on above: Performed By: #### U AMIC #### [facility] [address] [address] [address] Donis Mancini Crystals LM Nom (Urine sed) NONE SEEN Normal NONE SEEN [facility] Comment on above: Performed By: #### U AMIC #### [facility] [address] [place] [address] Dr. Donis Mancini Epithelial cells LM Ql (Urine sed) FEW Abnormal NONE SEEN /RARE [facility] Comment on above: Performed By: #### U AMIC #### [facility] [address] [place] [address] Dr. Donis Mancini Glucose Ql (U) Negative Normal NEGATIVE [facility] Comment on above: Performed By: #### U AMIC #### [facility] [address] [address] [address] Donis Mancini Hemoglobin Ql (U) Negative Normal NEGATIVE [facility] Comment on above: Performed By: #### U AMIC #### [facility] [address] [place] [address] Dr. Donis Mancini Ketones Ql (U) Negative Normal NEGATIVE [facility] Comment on above: Performed By: #### U AMIC #### [facility] [address] [address] [address] Donis Mancini LEUKOCYTES LARGE Abnormal NEGATIVE [facility] Comment on above: Performed By: #### U AMIC #### [facility] [address] [address] [address] Donis Mancini MUCOUS NONE SEEN Normal NONE SEEN [facility] Comment on above: Performed By: #### U AMIC #### [facility] [address] [address] [address] Donis Mancini Nitrite Ql (U) Negative Normal NEGATIVE [facility] Comment on above: Performed By: #### U AMIC #### [facility] [address] [place] [address] Dr. Donis Mancini pH (U) 5.5 [pH] Normal 5-9 [facility] Comment on above: Performed By: #### U AMIC #### [facility] [address] [place] [address] Dr. Donis Mancini RBC 0-2 Normal 0-2 [facility] Comment on above: Performed By: #### U AMIC #### [facility] [address] [address] [address] Donis Mancini SPEC GRAVITY <=1.005 Abnormal 1.005-<=1.02 5 [facility] Comment on above: Performed By: #### U AMIC #### [facility] [address] [place] [address] Dr. Donis Mancini UA PROTEIN Negative Normal NEGATIVE/ TRACE [facility] Comment on above: Performed By: #### U AMIC #### [facility] [address] [place] [address] Dr. Donis Mancini Urobilinogen Qn (U) 0.2 {Sarah'U}/dL Normal 0.2 - 1. 0 [facility] Comment on above: Performed By: #### U AMIC #### [facility] [address] [place] [address] Dr. Donis Mancini WBC 5-10 Abnormal NONE SEEN [facility] Comment on above: Performed By: #### U AMIC #### [facility] [address] [address] [address] Donis Mancini HEP B SURFACE ANTIGEN SCREEN on 01-23-2022 HBsAg Screen Negative Normal Negative [facility] Comment on above: Performed By: #### U AMIC #### [facility] [address] [address] [address] Donis Mancini HEPATITIS C VIRUS AB W/ REFL EX QUANTon 01-23-2022 HCV AB 0.1 s/co ratio Normal 0.0-0.9 [facility] Comment on above: Performed By: #### H CVPCRR ####[facility] [address] [place] [address]DrGene Mancini Interpretation: Comment Normal [facility] [place] Comment on above: Result Comment: Nega tive Not infected with HCV, unless recent infection is suspected or other evidence exists to indicate HCV infection. Performed By: #### H CVPCRR ####[facility] [address] [place] [address]DrGene Mancini HIV 1 AND 2 WITH REFLEXon HIV Screen 4th Generation wRfx Non-Reactive Normal Non Reactive [facility] Comment on above: Result Comment: HIV Negative HIV-1/HIV-2 antibodies and HIV-1 p24 antigen were NOT detected. There is no laboratory evidence of HIV infection. Performed By: #### H IV12 ####[facility] [address] [address]DrGene Mancini RPR QUANTon 01-23-2022 Rapid Plasma Reagin, Quant Non-Reactive Normal NonRea<1:1 [facility] Comment on above: Result Comment: Plea se Note: This test does not meet current guidelines for screening and diagnosis of syphilis. This test is intended for following treatment response in patients being treated for syphilis infection. To screen for syphilis infection, a reflex cascade that includes both RPR and a treponema-specific assay should be utilized, such as Treponema pallidum (Syphilis) Screening Mckean (468729) or Rapid Plasma Reagin (RPR) Test With Reflex to Quantitative RPR and Confirmatory Treponema pallidum Antibodies (521250). Performed By: #### R PRQ ####[facility] [address] [address]Dr. Donis Mancini RUBELLA AB IGGon 01-23-2022 Rubella Antibodies, IgG 1.60 index Normal Immune >0.99 [facility] Comment on above: Result Comment: Non- immune <0.90 Equivocal 0.90 - 0.99 Immune >0.99 Performed By: #### U AMIC #### [facility] [address] [address] [address] Donis Mancini CBC AUTO DIFFon 01-22-2022 BASO # 0.1 103/ul Normal 0.0-0.1 [facility] Comment on above: Performed By: #### U AMIC #### [facility] [address] [place] [address] Dr. Donis Mancini Basophils/100 WBC (Bld) 0.5 % Normal 0.2-2.0 [facility] Comment on above: Performed By: #### U AMIC #### [facility] [address] [place] [address] Dr. Donis Mancini EO # 0.6 103/ul Normal 0.0-0.7 [facility] Comment on above: Performed By: #### U AMIC #### [facility] [address] [place] [address] Dr. Donis Mancini Eosinophils/100 WBC (Bld) 5.1 % Normal 0.9-7.0 [facility] Comment on above: Performed By: #### U AMIC #### [facility] [address] [place] [address] Dr. Donis Mancini Erythrocyte distribution width (RBC) [Ratio] 12.0 % Normal 11.0-15.0 [facility] Comment on above: Performed By: #### U AMIC #### [facility] [address] [place] [address] Dr. Donis Mancini Hematocrit (Bld) [Volume fraction] 45.8 % Normal 36.0-48.0 [facility] Comment on above: Performed By: #### U AMIC #### [facility] [address] [place] [address] Dr. Donis Mancini Hemoglobin (Bld) [Mass/Vol] 15.3 g/dL Normal 12.0-16.0 [facility] Comment on above: Performed By: #### U AMIC #### [facility] [address] [place] [address] Dr. Donis Mancini IG # 0.03 10e3/ul Normal 0.00-0.03 [facility] Comment on above: Performed By: #### U AMIC #### [facility] [address] [place] [address] Dr. Donis Mancini IG % 0.3 % Normal 0.0-0.5 [facility] Comment on above: Performed By: #### U AMIC #### [facility] [address] [place] [address] Dr. Donis Mancini LYMPH # 1.7 103/ul Normal 1.2-3.8 [facility] Comment on above: Performed By: #### U AMIC #### [facility] [address] [place] [address] Dr. Donis Mancini Lymphocytes/100 WBC (Bld) 15.9 % Critically low 20.5-60.0 [facility] Comment on above: Performed By: #### U AMIC #### [facility] [address] [place] [address] Dr. Donis Mancini MANUAL DIFF REQ NO Normal The [facility] Comment on above: Performed By: #### U AMIC #### [facility] [address] [address] [address] Donis Mancini MCH (RBC) [Entitic mass] 31.5 pg Normal 26.7-34.0 [facility] Comment on above: Performed By: #### U AMIC #### [facility] [address] [place] [address] Dr. Donis Mancini MCHC (RBC) [Mass/Vol] 33.4 g/dL Normal 29.9-35.2 [facility] Comment on above: Performed By: #### U AMIC #### [facility] [address] [place] [address] Dr. Donis Mancini MCV (RBC) [Entitic vol] 94.2 fL Normal 81.0-99.0 [facility] Comment on above: Performed By: #### U AMIC #### [facility] [address] [place] [address] Dr. Donis Mancini MONO # 0.6 103/ul Normal 0.3-0.8 [facility] Comment on above: Performed By: #### U AMIC #### [facility] [address] [place] [address] Dr. Donis Mancini Monocytes/100 WBC (Bld) 5.8 % Normal 1.7-12.0 [facility] Comment on above: Performed By: #### U AMIC #### [facility] [address] [place] [address] Dr. Donis Mancini NEUT # 7.8 103/ul Critically high 1.4-6.5 [facility] Comment on above: Performed By: #### U AMIC #### [facility] [address] [place] [address] Dr. Donis Mancini Neutrophils/100 WBC (Bld) 72.4 % Normal 43.0-75.0 [facility] Comment on above: Performed By: #### U AMIC #### [facility] [address] [place] [address] Dr. Donis Mancini Platelet mean volume (Bld) [Entitic vol] 9.9 fL Normal 9.5-13.5 [facility] Comment on above: Performed By: #### U AMIC #### [facility] [address] [place] [address] Dr. Donis Mancini PLT 281 103/ul Normal 150-450 [facility] Comment on above: Performed By: #### U AMIC #### [facility] [address] [place] [address] Dr. Donis Mancini RBC 4.86 106/ul Normal 4.20-5.40 [facility] Comment on above: Performed By: #### U AMIC #### [facility] [address] [place] [address] Dr. Donis Mancini WBC 10.8 103/ul Normal 4.0-11.0 [facility] Comment on above: Performed By: #### U AMIC #### [facility] [address] [address] [address] Donis Mancini CULTURE URINEon 01-22-2022 CULTURE URINE Culture Observations: LIGHT GROWTH OF MIXED GENITAL RMABO. NO POTENTIAL PATHOGENS SEEN. Normal [facility] Comment on above: Performed By: #### U RCX #### [facility] [address] [address] [address] Donis Mancini GLYCOHEMOGLOBIN A1Con 2021 ADA RECOMMENDATION SEE BELOW Normal [facility] Comment on above: Result Comment: ADA RECOMMENDED LIMIT 4.0 - 6.0 ADA THERAPEUTIC TARGET < 7.0 ACTION SUGGESTED > 7.0 Performed By: #### A 1C ####[facility] [address] [address]DrGene Mancini Glucose [Mass/Vol] 100 mg/dL Normal [facility] Comment on above: Performed By: #### A 1C ####[facility] [address] [address]DrGene Mancini HbA1c (Bld) [Mass fraction] 5.1 % Normal 4.5-6.2 [facility] Comment on above: Performed By: #### A 1C ####[facility] [address] [id number]. Donis Mancini SEAN BOX TEST PT SEND OUTo n 01-22-2022 SENT TO REF LAB 01/22/2022 Normal The [facility] Comment on above: Performed By: #### N BOX ####[facility] [address] [address]DrGene Mancini TYPE AND SCREENon 01-22-2022 TYPE AND SCREEN Negative Normal [facility] Comment on above: Performed By: #### T NS #### [facility] [address] [address] [address] Donis Mancini US PREG TVon 01-17-2022 [...] COCO STERN Date: 2022-01-17 09:34 Normal [facility] Provider Letteron 04-06-2021 Provider Letter April 06, 2021 Dear Vimal, We have been trying to reach you with no success. It is important that you return our call regarding your appointment upon receiving this letter. Also, at the time of your call, please provide us with your current information. Thank you for your prompt attention to this matter. Sincerely, [facility] [address] [place] [id number] Normal [facility] Ambulatory Clinical Summaryo n 03-10-2021 Ambulatory Clinical Summary {[id number]}CD:[id number] Normal [facility] Ambulatory Clinical Summaryo n 03-05-2021 Ambulatory Clinical Summary {[id number]}CD:[id number] Normal [facility] Gynecology Phone Visit- Tele healthon 03-05-2021 [...] communication with the patient located at [address] [place] [phone], with no one else. If it is [...] Ordered: Telephone Est 5 to 10 minutes [id number] Follow-up With When Contact Information Joycelyn RENNER In [address] [place] [address]- Additional Instructions: Problem List/Past Medical History Ongoing Contraception management Visit for routine coding advisor exam Historical Blood transfusion Lead poisoning Procedure/Surgical [...] hepatitis B adult vaccine 2001 Recorded Normal [facility] Comment on above: Result Comment: Elec tronically Signed By: ISABEL JACOBS, Joycelyn\.br\Date and Time Signed: 03/05/21 16:35 EDT Ambulatory Clinical Summaryo n 03-04-2021 Ambulatory Clinical Summary {[id number]}CD:[id number] Normal [facility] Coding Summary.on 12-18-2020 Coding Summary. CODING DATE: 12/18/2020 FINAL [facility] DSC STATUS: Home (Routine DC) PAYOR: [place] ADMIT DX: REASON FOR VISIT DX: [...] CphT Date Saved: 12/18/2020 12:44 pm Normal [facility] Physician Orderon 12-16-2020 Physician Order [id number] #[id number]:[id number] Normal [facility] Rapid COVID Antigen (MC)on 12-16-2020 Rapid COV Int NEG Ctl Pass Normal [facility] Comment on above: Performed By: #### 2 [id number] #### [facility] [address] [place] [address] Rapid COV Int POS Ctl Pass Normal [facility] Comment on above: Performed By: #### 2 [id number] #### [facility] [address] [place] [address] SARS-CoV-2 (COVID-19) RNA INESSA+probe Ql (Unsp spec) Detected Abnormal Not Detected [facility] Comment on above: Result Comment: Left a message for callback. 12/16/2020 11:42:47 EDT Results faxed to infection control. The [employer]? System for Rapid Detection of SARS-CoV-2 is [...] other viruses or pathogens; and, in the [facility], this test is only authorized for the duration of the declaration that circumstances exist justifying the authorization of emergency use of in vitro diagnostics for detection and/or diagnosis of the virus that causes COVID-19 under Section 564(b)(1) of the Act, 21 U.S.C. ? 360bbb-3(b)(1), unless the authorization is terminated or revoked sooner. Performed By: #### 2 [id number] #### [facility] [address] [place] [address] Employed in Healthcare Unknown Normal [facility] Comment on above: Performed By: #### 2 [id number] #### [facility] [address] [place] [address] First Test Unknown [facility] Comment on above: Performed By: #### 2 [id number] #### [facility] [address] [place] [address] Hospitalized? NO Normal [facility] Comment on above: Performed By: #### 2 [id number] #### [facility] [address] [place] [address] ICU NO Normal [facility] Comment on above: Performed By: #### 2 [id number] #### [facility] [address] [place] [address] ? Unknown [facility] Comment on above: Performed By: #### 2 [id number] #### [facility] [address] [place] [address] Resides in a Congregate Care Setting Unknown Normal [facility] Comment on above: Performed By: #### 2 [id number] #### [facility] [address] [place] [address] Symptomatic as defined by [facility] YES Normal [facility] Comment on above: Performed By: #### 2 [id number] #### [facility] [address] [place] [address] Ambulatory Clinical Summaryo n 11-25-2020 Ambulatory Clinical Summary {[id number]}CD:[id number] Normal [facility] Vital Signs Date Time Vital Sign Value Performing Clinician Facility 04-30-2025 11:52-0400 Body mass index (BMI) [Ratio] 31 kg/m2 Rossana Leach PA Work Phone: [facility] 04-30-2025 11:52-0400 Body weight 79.38 kg Rossana Rachel PA Work Phone: [facility] 04-30-2025 11:52-0400 Diastolic blood pressure 94 mm[Hg] Rossana [place] PA Work Phone: [facility] 04-30-2025 11:52-0400 Systolic blood pressure 140 mm[Hg] Rossana Rachel PA Work Phone: [facility] 04-11-2025 15:38-0400 Body mass index (BMI) [Ratio] 30.2 kg/m2 Rossana Rachel PA Work Phone: [facility] 04-11-2025 15:38-0400 Body weight 77.34 kg Rossana [place] PA Work Phone: [facility] 04-11-2025 15:38-0400 Diastolic blood pressure 100 mm[Hg] Rossana Rachel PA Work Phone: [facility] 04-11-2025 15:38-0400 Systolic blood pressure 142 mm[Hg] Rossana [place] PA Work Phone: [facility] 03-14-2025 11:36-0400 Body mass index (BMI) [Ratio] 29.23 kg/m2 Jose Rodriguez DO Work Phone: [facility] 03-14-2025 11:36-0400 Body weight 74.84 kg Jose Michael DO Work Phone: [facility] 03-14-2025 11:36-0400 Diastolic blood pressure 76 mm[Hg] Jose Michael DO Work Phone: [facility] 03-14-2025 11:36-0400 Systolic blood pressure 112 mm[Hg] Jose Michael DO Work Phone: [facility] 02-20-2025 16:08-0400 Body mass index (BMI) [Ratio] 28.83 kg/m2 Rossana BISWAS Work Phone: [facility] 02-20-2025 16:08-0400 Body weight 73.82 kg Rossana BISWAS Work Phone: [facility] 02-20-2025 16:08-0400 Diastolic blood pressure 82 mm[Hg] Rossana BISWAS Work Phone: [facility] 02-20-2025 16:08-0400 Systolic blood pressure 110 mm[Hg] Rossana BISWAS Work Phone: [facility] 01-14-2025 15:42-0400 Body mass index (BMI) [Ratio] 27.3 kg/m2 Jose Michael DO Work Phone: [facility] 01-14-2025 15:42-0400 Body weight 69.91 kg Jose Michael DO Work Phone: [facility] 01-14-2025 15:42-0400 Diastolic blood pressure 70 mm[Hg] Jose Michael DO Work Phone: [facility] 01-14-2025 15:42-0400 Systolic blood pressure 120 mm[Hg] Jose Michael DO Work Phone: [facility] 08-20-2024 10:55-0500 Body mass index (BMI) [Ratio] 25.93 kg/m2 Rossana BISWAS Work Phone: [facility] 08-20-2024 10:55-0500 Body weight 66.41 kg Rossana Leach TRUE Work Phone: [facility] 08-20-2024 10:55-0500 Diastolic blood pressure 70 mm[Hg] Rossana Scottandressa BISWAS Work Phone: [facility] 08-20-2024 10:55-0500 Systolic blood pressure 120 mm[Hg] Rossana Leach PA Work Phone: [facility] 08-06-2024 09:38-0500 Body mass index (BMI) [Ratio] 25.47 kg/m2 Jose Michael DO Work Phone: [facility] 08-06-2024 09:38-0500 Body weight 65.23 kg Jose Michael DO Work Phone: [facility] 08-06-2024 09:38-0500 Diastolic blood pressure 70 mm[Hg] Jose Michael DO Work Phone: [facility] 08-06-2024 09:38-0500 Systolic blood pressure 120 mm[Hg] Jose Michael DO Work Phone: [facility] 06-29-2024 09:12-0400 Body mass index (BMI) [Ratio] 24.58 kg/m2 [facility] Nurse [facility] 06-29-2024 09:12-0400 Body weight 62.94 kg [facility] Nurse [facility] 06-29-2024 09:12-0400 Diastolic blood pressure 72 mm[Hg] [facility] Nurse [facility] 06-29-2024 09:12-0400 Systolic blood pressure 122 mm[Hg] Nom Nurse [facility] 12-26-2022 13:45-0400 Body height 160.02 cm Jennifer Huston Other [facility] Other 12-26-2022 13:45-0400 Body mass index (BMI) [Ratio] 27.45 kg/m2 Jennifer Huston Other [facility] Other 12-26-2022 13:45-0400 Body temperature 97 [degF] Jennifer Huston Other [facility] Other 12-26-2022 13:45-0400 Body weight 70.31 kg Jennifer Huston Other [facility] Other 12-26-2022 13:45-0400 Diastolic blood pressure 89 mm[Hg] Jennifer Huston Other [facility] Other 12-26-2022 13:45-0400 Respiratory rate 18 /min Jennifer Huston Other [facility] Other 12-26-2022 13:45-0400 SaO2% (BldA) [Mass fraction] 100 % Jennifer Huston Other [facility] Other 12-26-2022 13:45-0400 Systolic blood pressure 135 mm[Hg] Jennifer Huston Other [facility] Other Encounters Encounter Date Encounter Type Care Provider Facility Start: 05-10-2025 End: 05-10-2025 Chart abstracting Scanning Provider External [facility] at [facility] Start: 05-06-2025 End: 05-06-2025 Clinisync Result Encounter Rossana BISWAS Work Phone: [facility] Unsolicited Start: 05-06-2025 End: 05-06-2025 Clinisync Result Encounter Rossana BISWAS Work Phone: [facility] External [facility] Unsolicited Start: 05-04-2025 End: 05-04-2025 Clinisync Result Encounter Rossana BISWAS Work Phone: [facility] External [facility] Unsolicited Start: 05-04-2025 End: 05-04-2025 Clinisync Result Encounter Rossana BISWAS Work Phone: [facility] Unsolicited Start: 05-04-2025 End: 05-08-2025 Telephone encounter Jose Rodriguez DO Work Phone: [facility] [place] Start: 04-30-2025 End: 04-30-2025 Bamboo flowsheet Rossana BISWAS Work Phone: [facility] Start: 04-30-2025 End: 04-30-2025 Bamboo flowsheet Rossana BISWAS Work Phone: [facility] Start: 04-30-2025 End: 04-30-2025 ambulatory ROSSANA LEACH Not Available Start: 04-30-2025 End: 04-30-2025 Patient encounter status Rossana BISWAS Work Phone: [facility] Work Phone: Start: 04-30-2025 End: 04-30-2025 flow sheet Rossana BISWAS Work Phone: [facility] Comment on above: BP check; -induced hypertension in third trimester ([facility]HS-HCC); Gestational diabetes mellitus (GDM) in third trimester, gestational diabetes method of control unspecified ([facility]) Start: 04-27-2025 End: 04-27-2025 Clinisync Result Encounter Rossana BISWAS Work Phone: [facility] External [facility] Unsolicited Start: 04-27-2025 End: 04-27-2025 Clinisync Result Encounter Rossana BISWAS Work Phone: [facility] External [facility] Unsolicited Start: 04-25-2025 End: 04-25-2025 flow sheet Rossana BISWAS Work Phone: [facility] Comment on above: Second trimester pre gnancy ([facility]HS-HCC); 27 weeks gestation of (HHS-HCC); induced hypertension, antepartum ([facility]HS-HCC) Start: 04-25-2025 End: 04-25-2025 ambulatory ROSSANA LEACH Not Available Start: 04-25-2025 End: 04-25-2025 Bamboo flowsheet Rossana BISWAS Work Phone: [facility] Start: 04-25-2025 End: 04-25-2025 Bamboo flowsheet Rossana BISWAS Work Phone: [facility] Start: 04-11-2025 End: 04-11-2025 ambulatory ROSSANA SCOTTEY Not Available Start: 04-11-2025 End: 04-11-2025 flow sheet Rossana BISWAS Work Phone: [facility] Comment on above: Second trimester pre gnancy ([facility]); 25 weeks gestation of ([facility]); Diabetes mellitus screening; Elevated BP without [...] Comment on above: Second trimester pre gnancy ([facility]); 21 weeks gestation of ([facility]-HCC) Start: 03-08-2025 End: 03-08-2025 Clinisync Result Encounter [...] Start: 08-10-2024 End: 08-10-2024 ambulatory PHYSICIAN NO [facility] Work Phone: Start: 08-10-2024 End: 08-10-2024 Departed Referred PHYSICIAN [facility] Start: [...] 12-26-2022 End: 12-26-2022 ambulatory Jennifer Huston Other [facility] Ratio Other Start: 12-26-2022 End: 12-26-2022 Patient encounter procedure 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 Facility: Start: 08-16-2022 End: 08-16-[address] DOCTOR ATWOOD Facility: Start: 08-10-2022 End: 08-12-2022 Evaluation and management of inpatient DR DOCTOR ATWOOD Facility: Start: 08-07-2022 End: 08-07-[address] DOCTOR ATWOOD Facility: Start: 07-31-2022 End: 07-31-[address] JOSE RODRIGUEZ . Facility: Start: 07-29-2022 End: 07-29-[address] JOSE RODRIGUEZ . Facility: Start: 07-24-2022 End: 07-24-[address] JOSE RODRIGUEZ . Facility: Start: 07-10-2022 End: 07-11-[address] JOSE RODRIGUEZ . Facility: Start: 07-06-2022 End: 07-06-[address] DOCTOR ATWOOD Facility: Start: 06-14-2022 End: 06-15-[address] JOSE RODRIGUEZ . Facility: Start: 06-03-2022 End: 06-04-[address] JOSE RODRIGUEZ . Facility: Start: 05-21-2022 End: 05-22-[address] JOSE [...] End: 03-27-[address] JOSE RODRIGUEZ . Facility: Start: 01-22-2022 End: 01-23-[address] JOSE RODRIGUEZ . Facility:[facility] Start: 01-14-2022 End: 01-15-[address] JOSE RODRIGUEZ . Facility: Procedures Date Procedure Procedure Detail Performing Clinician Start: 05-06-2025 [facility] TOTAL PROTEIN 24 HOUR URINE Rossana BISWAS Work Phone: Start: 05-04-2025 Glucose quantitative blood xcpt reagent strip Not In System Ref Prov Start: 05-04-2025 SECOND HOUR GLUCOSE TOLERANCE 100 GM LOAD Not In System Ref Prov Start: 05-04-2025 US OB BPP W NON-STRESS Rossana BISWAS Work Phone: Start: 05-04-2025 US OB GROWTH Rossana BISWAS Work Phone: Start: 05-04-2025 ALL CBC WITH AUTO DIFF Rossana BISWAS Work Phone: Start: 04-30-2025 Urnls dip stick/tabl et rgnt non-auto w/o micrscp Jose Rodriguez DO Work Phone: Start: 04-27-2025 GLU 1H POST 50G LOAD No t In System Ref Prov Start: 04-27-2025 ALL CBC WITH AUTO DIFF [...] HPV,AGE GDLN Rossana BISWAS Work Phone: Start: 02-20-2025 Microscopic observat ion [Identifier] in Cervix by Cyto stain Scanning External Start: 01-14-2025 Urnls dip stick/tabl et rgnt non-auto w/o micrscp Jose Michael DO Work Phone: Start: 01-05-2025 FREE CELL DNA (NON-[facility] SEND OUT) Not In System Ref Prov Start: 01-05-2025 Hemoglobin glycosyla fernando a1c Scanning Provider External Start: 01-05-2025 UNLISTED LAB TEST Not I n System Ref Prov Start: 01-05-2025 ALL CBC WITH AUTO DIFF [...] 07-21-2024 [facility] DRUG SCREEN RAPI D (URINE) [facility] DO Work Phone: Start: 06-29-2024 End: 06-29-2024 Urnls dip stick/tablet rgnt non-auto w/o micrscp [facility] DO Work Phone: Start: 12-26-2022 Plain X-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 hand COPPERSMITH APPRENTICE-C Jennifer Huston Work Phone: Start: 11-02-2022 Cytp cerv/vag auto t hin layer prep mnl screen [facility] DO Work Phone: Start: 08-10-2022 Delivery [...] Treatment Date Care Activity Detail Author Start: 02-21-2028 Screening for malign ant neoplasm of cervix Pap Smear [facility] Start: 06-04-2025 End: 06-04-2025 Patient encounter procedure 06/04/2025 1:00 PM EDT Appointment [facility] [address] [place] [address] Jose Rodriguez R, DO [address] [place] [address] [facility] Start: 05-27-2025 Influenza vaccination [facility] Start: 05-14-2025 End: 05-14-2025 Patient encounter procedure 05/14/2025 2:40 PM EDT Routine ARJUN PANG [address] [place] [id number] Jose Rodriguez, [address] [place] [address] [facility] Start: 05-13-2025 End: 05-13-2025 ambulatory 05/13/2025 1:30 PM EDT Support Visit M[facility]- Medicine at [facility] [address] [place] [address] Marjorie Rico, RN [address] [facility] [address] Xenia Rayo, RD [address] [facility] [address] [place] [address] Maternal- Medicine at [facility] Start: 04-30-2025 End: 10-31-2025 US biophysical profile [...] control unspecified (HHS-HCC) Expected: 04/30/2025, Expires: 08/30/2025 [facility] Comment on above: Expected: 04/30/2025 , Expires: 08/30/2025 Start: 04-30-2025 End: 04-30-2025 Patient encounter procedure 04/30/2025 10:50 AM EDT Routine [facility] [address] [place] [phone] Rossana Leach PA [address] [place] [address] [facility] Start: 04-25-2025 End: 04-25-2025 Patient encounter procedure [facility] Comment on above: Arrived Start: 04-25-2025 End: 04-25-2026 Alanine aminotransferase [Enzymatic activity/volume] in Serum or Plasma ALT Lab Routine induced hypertension, antepartum (HHS-HCC) Expected: 04/25/2025 (Approximate), Expires: 04/25/2026 [facility] Healthcare Comment on above: Expected: 04/25/2025 (Approximate), [...] antepartum (HHS-HCC) Expected: 04/25/2025 (Approximate), Expires: 04/25/2026 [facility] Work Phone: Comment on above: Expected: 04/25/2025 (Approximate), Expires: 04/25/2026 Start: 04-25-2025 End: 04-25-2026 Lactate dehydrogenase [Enzymatic activity/volume] in Serum or Plasma by Lactate to pyruvate reaction Lactate dehydrogenase Lab Routine induced hypertension, antepartum (HHS-HCC) Expected: 04/25/2025, Expires: 04/25/2026 [facility] Comment on above: Expected: 04/25/2025 , Expires: 04/25/2026 Start: 04-25-2025 End: 04-25-2026 Protein, urine, 24 hour Protein, urine, 24 hour Lab Routine induced hypertension, antepartum (HHS-HCC) Expected: 04/25/2025 (Approximate), Expires: 04/25/2026 [facility] Comment on above: Expected: 04/25/2025 (Approximate), Expires: 04/25/2026 Start: 04-25-2025 End: 04-25-2026 Pt and ptt Pt and ptt Lab Routine induced hypertension, antepartum (HHS-HCC) Expected: 04/25/2025, Expires: 04/25/2026 [facility] Comment on above: Expected: 04/25/2025 , Expires: 04/25/2026 Start: 04-25-2025 End: 04-25-2026 Urate [Mass/volume] in Serum or Plasma Uric acid Lab Routine induced hypertension, antepartum (HHS-HCC) Expected: 04/25/2025 (Approximate), Expires: 04/25/2026 [facility] Comment on above: Expected: 04/25/2025 (Approximate), Expires: 04/25/2026 Start: 04-25-2025 End: 04-25-2026 Urea nitrogen [Mass/volume] in Serum or Plasma BUN Lab Routine induced hypertension, antepartum (HHS-HCC) Expected: 04/25/2025, Expires: 04/25/2026 [facility] Healthcare Comment on above: Expected: 04/25/2025 , Expires: 04/25/2026 Start: 04-11-2025 End: 04-11-2025 Patient encounter procedure 04/11/2025 3:30 PM EDT Routine [facility] [address] [place] [phone] Rossana Leach PA [address] [place] [address] [facility] Start: 04-11-2025 End: 04-11-2026 CBC panel - Blood by Automated count CBC Lab Routine Diabetes mellitus screening Expected: 04/11/2025 (Approximate), Expires: 04/11/2026 [facility] Work Phone: Comment on above: Expected: 04/11/2025 (Approximate), Expires: 04/11/2026 Start: 04-11-2025 End: 04-11-2026 Measurement of glucose 1 hour after glucose challenge for glucose tolerance test Glucose tolerance, 1 hour Lab Routine Diabetes mellitus screening Expected: 04/11/2025 (Approximate), Expires: 04/11/2026 [facility] Healthcare Comment on above: Expected: 04/11/2025 (Approximate), Expires: 04/11/2026 Start: 03-14-2025 End: 03-14-2025 Patient encounter procedure 03/14/2025 10:50 AM EDT Routine [facility] [address] [place] [phone] Jose Rodriguez DO [address] [place] [place] [address] [facility] Start: 02-20-2025 End: 02-20-2025 [...] AM EDT Initial [facility] [address] [phone] [facility] Start: 12-14-2024 End: 12-14-2024 Professional / ancillary services management 12/14/2024 8:30 AM EDT Ancillary Procedure [facility] [address] [place] [address] [facility] Start: 08-20-2024 End: 08-20-2024 Patient encounter procedure 08/20/2024 10:20 AM EST Office Visit [facility] [address] [place] [phone] Rossana Leach PA [address] [place] [address] [facility] Start: 08-06-2024 End: 08-06-2024 Patient encounter procedure 08/06/2024 9:10 AM EST Routine [facility] [address] [place] [phone] Jose Rodriguez DO [address] [place] [address] [facility] Start: 06-29-2024 End: 06-29-2025 ABO/Rh ABO/Rh Lab Routine Missed menses , unspecified gestational age Expected: 06/29/2024 (Approximate), Expires: 06/29/2025 [facility] Comment on above: Expected: 06/29/2024 (Approximate), Expires: 06/29/2025 Start: 06-29-2024 End: 06-29-2025 Blood type and Indirect antibody screen panel - Blood Type and screen Lab Routine Missed menses , unspecified gestational age Expected: 06/29/2024 (Approximate), Expires: 06/29/2025 [facility] Work Phone: Comment on above: Expected: 06/29/2024 (Approximate), Expires: 06/29/2025 Start: 06-29-2024 End: 06-29-2025 Drugs of abuse panel - Urine by Screen method Rapid drug screen, urine Lab Routine , unspecified gestational age Encounter for supervision of normal first in first trimester Expected: 06/29/2024 (Approximate), Expires: 06/29/2025 [facility] Comment on above: Expected: 06/29/2024 (Approximate), Expires: 06/29/2025 Start: 06-29-2024 End: 06-29-2025 US Pelvis transvaginal US OB transvaginal Imaging Routine Missed menses Expected: 06/29/2024 (Approximate), Expires: 06/29/2025 [facility] Comment on above: Expected: 06/29/2024 (Approximate), Expires: 06/29/2025 Start: 05-27-2024 Influenza vaccination Influenza Vacc ine (#1) [facility] Start: 2020 DTaP,Tdap and Td Vac cines (1 - Tdap) DTaP,Tdap and Td Vaccines (1 - Tdap) [facility] Start: 2019 Adult BMI Screening Adult BMI Screen ing [facility] Start: 2013 Depression Screening Depression Scre ening [facility] Start: 2013 Tobacco Screening Tobacco Screening [facility] Bacteria identified in Urine by Culture Urine culture Microbiology Routine Missed menses Ordered: 06/29/2024 [facility] Comment on above: Ordered: 06/29/2024 Bacteria identified in Urine by Culture Urine culture Microbiology Routine Urinary frequency Ordered: 02/20/2025 [facility] Comment on above: Ordered: 02/20/2025 CBC W Auto Different ial panel - Blood CBC and differential Lab Routine Missed menses , unspecified gestational age Ordered: 06/29/2024 [facility] Comment on above: Ordered: 06/29/2024 CHLAMYDIA TRACHOMATI S (GENITO/STI) CHLAMYDIA TRACHOMATIS (GENITO/STI) Lab Routine STD exposure Ordered: 02/20/2025 [facility] Comment on above: Ordered: 02/20/2025 Cytology Cervical or vaginal smear or scraping study Pap Smear Pathology and Cytology Routine Well woman exam with routine gynecological exam Ordered: 02/20/2025 [facility] Comment on above: Ordered: 02/20/2025 Hemoglobin A1c/Hemoglobin.total in Blood Hemoglobin A1c Lab Routine Missed menses , unspecified gestational age Ordered: 06/29/2024 [facility] Comment on above: Ordered: 06/29/2024 Hepatitis B virus beltran rface Ag [Presence] in Serum or Plasma by Immunoassay Hepatitis B surface antigen Lab Routine Missed menses , unspecified gestational age Ordered: 06/29/2024 [facility] Comment on above: Ordered: 06/29/2024 Hepatitis C virus Ab [Presence] in Serum or Plasma by Immunoassay Hepatitis C antibody Lab Routine Missed menses , unspecified gestational age Ordered: 06/29/2024 [facility] Comment on above: Ordered: 06/29/2024 HIV-1/HIV-2 antigen/antibody combination immunoassay HIV-1 and HIV-2 antibodies Lab Routine Missed menses , unspecified gestational age Ordered: 06/29/2024 [facility] Comment on above: Ordered: 06/29/2024 Neisseria gonorrhoea e DNA [Presence] in Unspecified specimen by INESSA with probe detection Neisseria gonorrhea DNA probe, direct Lab Routine STD exposure Ordered: 02/20/2025 [facility] Comment on above: Ordered: 02/20/2025 Reagin Ab [Presence] in Serum by RPR RPR Lab Routine Missed menses , unspecified gestational age Ordered: 06/29/2024 [facility] Comment on above: Ordered: 06/29/2024 Rubella antibody, IgG Rubella an tibody, IgG Lab Routine Missed menses , unspecified gestational age Ordered: 06/29/2024 [facility] Comment on above: Ordered: 06/29/2024 SURESWAB(R) ADVANCED VAGINITIS PLUS, TMA SURESWAB(R) ADVANCED VAGINITIS PLUS, TMA Pathology and Cytology Routine STD exposure Ordered: 02/20/2025 [facility] Work Phone: Comment on above: Ordered: 02/20/2025 Immunizations Immunization Date Immunization Notes Care Provider Ryne abrams 08-28-2002 influenza virus vacc ine, unspecified formulation Noms Nurse [facility] Payers Date Payer Category Payer Medicaid [place] [id number] 2024 Blue Cross Blue [employer] Managed Care - O ANTH [id number] 2023 Medicaid [employer] [employer] [id number] 2023-Present [address] [place] [phone] [id number] 2023 Medicaid (Managed Care) [facility] MEDICAID [id number] 2021 Blue Cross Blue Shield 1.2.8 [id number] 2021 Unknown BCBS BCBS xxxxxx [id number] 2021-Present [phone] [address] [place] [address] [id number]. [id number] 2001 Unknown [id number] 2.16.840.1.670747.3.579.2. 593 2001 Unknown [id number] 2.16.840.1.296405.3.579.2. 593 2001 Unknown [id number] 2.16.840.1.820112.3.579.2. 593 2001 Unknown [id number] 2.16.840.1.615474.3.579.2. 593 2001 Unknown [id number] 2.16.840.1.550194.3.579.2. 593 2001 Unknown [id number] 2.16.840.1.338997.3.579.2. 593 2001 Unknown [id number] 2.16.840.1.599023.3.579.2. 593 2001 Unknown [id number] 2.16.840.1.377467.3.579.2. 593 2001 Unknown [id number] 2.16.840.1.240101.3.579.2. 593 2001 Unknown [id number] 2.16.840.1.321318.3.579.2. 593 2001 Unknown [id number] 2.16.840.1.415959.3.579.2. 593 2001 Unknown [id number] 2.16.840.1.444967.3.579.2. 593 2001 Unknown [id number] 2.16.840.1.643712.3.579.2. 593 2001 Unknown [id number] 2.16.840.1.532139.3.579.2. 593 2001 Unknown [id number] 2.840.1.751620.3.579.2. 593 2001 Unknown [id number] 2.16840.1.709038.3.579.2. 593 2001 Unknown [id number] 2.16.840.1.299738.3.579.2. 593 2001 Unknown [id number] 2.16.840.1.460149.3.579.2. 593 2001 Unknown [id number] 2.16840.1.105766.3.579.2. 593 2001 Unknown [id number] 2.16.840.1.988377.3.579.2. 593 2001 Unknown [id number] 2.16.840.1.286206.3.579.2. 593 2001 Unknown [id number] 2.16.840.1.584947.3.579.2. 1259 2001 Unknown [id number] 2.16.840.1.014957.3.579.2. 1259 2001 Unknown [id number] 2.16.840.1.250958.3.579.2. 9 2001 Unknown [id number] 2.16.840.1.489784.3.579.2. 1258 2001 Unknown [id number] 2.16.840.1.583847.3.579.2. 9 2001 Unknown [id number] 2.16.840.1.329363.3.579.2. 1258 2001 Unknown [id number] 2.16.840.1.606958.3.579.2. 1258 2001 Unknown [id number] 2.16.840.1.878330.3.579.2. 1258 2001 Unknown [id number] 2.16.840.1.329249.3.579.2. 1258 2001 Unknown [id number] 2.16.840.1.109390.3.579.2. 1258 2001 Unknown [id number] 2.16.840.1.309600.3.579.2. 9 1959 Self-pay 1959 Unknown [id number] 1959 Unknown [id number] Unknown [id number] 2.16.840.1.645136.3.579.2. 593 Unknown [id number] 2.16.840.1.149715.3.579.2. 531 Social History Date Type Detail Facility Start: 03-06-2019 End: 10-13-2023 Sex Assigned At [facility] [employer] Other Start: 2000 Sex Assigned At Female F [facility] Start: 10-13-2023 End: 05-10-2025 Tobacco smoking status MEIS Never smoked tobacco [facility] Start: 06-29-2024 End: 04-30-2025 Alcoholic beverage intake Current drinker of alcohol (finding) [facility] Start: 03-06-2019 End: 10-13-2023 History of Social function [facility] Start: 05-24-2024 [facility] Start: 2001 Sex assigned at Not on file N [facility] Tobacco smoking stat us MEIS Unknown if ever smoked [facility] Work Phone: Start: 04-29-2015 End: 08-11-2024 Sex Female (finding) [facility] Start: 05-10-2025 Alcoholic beverage intake Ex-drinker (finding) [facility] Unknown [facility] Medical Equipment Procedure Code Equipment Code Equipment Origin al Text Equipment Identifier Dates 1 strip by In Vi tro route Daily Use in the morning prior to breakfast, 1 hour after each meal for a total of 4times daily. [id number] Start: 05-08-2025 End: 06-07-2025 1 each by In Vit ro route Daily Use to check FSBS four times daily [id number] Start: 05-08-2025 End: 06-07-2025 Clinical Notes 12-26-2022 [...] supplies and referring her to diabetic education. [facility] 05-07-2025 Miscellaneous Notes Formattin g of this note might be different from the original. Called pt to let her know that she did not pass her 3 hour glucose test and that I would be sending in supplies and referring her to diabetic education. documented in this encounter [facility] 04-30-2025 History of Presen t [...] resulted 2. -induced hypertension in third trimester ([facility]) O13.3 US biophysical profile w non stress test US OB follow up transabdominal approach labetalol (Normodyne) 300 MG tablet 3. Gestational diabetes mellitus (GDM) in third trimester, gestational diabetes method of control unspecified ([facility]) O24.419 US biophysical profile w non [...] of: TRUE Argueta documented in this encounter [facility] 04-25-2025 History of Presen t [...] ASSESSMENT & PLAN ICD-10-CM 1. Second trimester ([facility]) Z34.92 2. 27 weeks gestation of ([facility]) Z3A.27 Patient presents for BP check. BP elevated today despite taking 100mg bid labetolol daily. We will increase to 200mg bid daily. Patient given labs and instructed to follow up with OB should she develop headache or vision changes Pt will follow up with DR Rodriguez next week Documented by TRUE Argueta on behalf of: TRUE Argueta documented in this encounter [facility] 04-11-2025 History of Presen t [...] Medical History: Diagnosis Date Anemia Gestational diabetes ([facility]) History of blood transfusion Lead poisoning Miscarriage ([facility]) Nonsmoker Post depression HISTORY PAST MEDICAL HISTORY SOCIAL HISTORY Past Medical History: Diagnosis Date Anemia Gestational diabetes ([facility]) History of blood transfusion Lead poisoning Miscarriage ([facility]) Nonsmoker Post depression /anxiety Social History Tobacco [...] ASSESSMENT & PLAN ICD-10-CM 1. Second trimester ([facility]) Z34.92 POCT urinalysis dipstick manually resulted 2. 25 weeks gestation of ([facility]) Z3A.25 3. Diabetes mellitus screening Z13.1 [...] of: TRUE Argueta documented in this encounter [facility] 03-14-2025 History of Presen t [...] nursing note reviewed. Exam conducted with a key account representative present. Vitals: Estimated body mass index is 29.23 kg/m as calculated from the following: Height as of 01/06/23: 5' 3 . Weight as of this encounter: 165 lb. BP: 112/76 Patient's last menstrual period was 10/15/2024 (exact date). ASSESSMENT & PLAN ICD-10-CM 1. Second trimester ([facility]) Z34.92 POCT urinalysis dipstick manually resulted 2. 21 weeks gestation of ([facility]) Z3A.21 Patient presents today for a routine obstetrics appointment. Patient is currently 21w3d with a Estimated Date of Delivery: 07/22/25. Patient has no complaints at this time and will return to clinic in 4 weeks. Documented by Diamond Borja LPN on behalf of: Jose Rodriguez DO documented in this encounter [facility] 02-20-2025 History of Presen t [...] transfusion Lead poisoning Miscarriage Nonsmoker Post depression ([facility]) HISTORY PAST MEDICAL HISTORY SOCIAL HISTORY Past [...] nursing note reviewed. Exam conducted with a key account representative present. Vitals: Estimated body mass index is [...] of: TRUE Argueta documented in this encounter [facility] 01-14-2025 History of Presen t [...] nursing note reviewed. Exam conducted with a key account representative present. Vitals: Estimated body mass index is [...] or undercooked meat, and stay away from [facility]. Patient has been consulted regarding any [...] Jose Rodriguez DO documented in this encounter [facility] 08-20-2024 History of Presen t [...] transfusion Lead poisoning Miscarriage Nonsmoker Post depression ([facility]) HISTORY PAST MEDICAL HISTORY SOCIAL HISTORY Past Medical History: Diagnosis Date Anemia Gestational diabetes History of blood transfusion Lead poisoning Miscarriage Nonsmoker Post depression ([facility]) /anxiety Social History Tobacco Use Smoking status: [...] having a D&C Hysteroscopy performed at [facility] with Dr. Rodriguez. Pathology results was reviewed with the patient in great detail and all restrictions have been lifted. Follow Up: Patient is to return to the office for annual exam unless needed otherwise. Documented by TRUE Argueta on behalf of: TRUE Argueta documented in this encounter [facility] 08-06-2024 History of Presen t [...] nursing note reviewed. Exam conducted with a key account representative present. Vitals: Estimated body mass index is [...] vaginal bleeding. Patient to discuss date with Head Of Mathematics prior to leaving. Patient is able to obtain work note for the week and if longer is needed she will reach out to office. Documented by Diamond Borja LPN on behalf of: Jose Rodriguez DO documented in this encounter [facility] 06-29-2024 History of Presen t [...] blood transfusion Lead poisoning Nonsmoker Post depression ([facility]) Family History Problem Relation Name [...] or undercooked meat, and stay away from [facility]. Patient has also been advised to [...] by: Whitney Peacock documented in this encounter [facility] 12-26-2022 Evaluation note Encounter Date [...] appointment to be seen soon as possible [employer] Other Evaluation noteNo assessment information available [facility] Work Phone: Evaluation note* Diagnosis Missed [...] glucose tolerance test documented in this encounter [facility] HealthcareInstructionsNot on filedocumented in this [facility] Summary Purpose Family History No Family History Records FoundNo Family History Records FoundNo Family History Records FoundNo Family History Records Found Advance Directives Advance Directive Response Recorded Date/ Time Advance Directives No December 27 23 6:21am Additional Source Comments INFORMATION SOURCE (unrecogn ized section and content) DATE CREATED AUTHOR 09/24/2021 [employer] [facility] DATE CREATED AUTHOR AUTHOR'S ORGANIZ ATION 12/07/2022 [facility] DATE CREATED AUTHOR AUTHOR'S ORGANIZ ATION 08/15/2024 [facility] DATE CREATED AUTHOR AUTHOR'S ORGANIZ ATION 05/03/2025 [facility] EPIC REASON FOR VISIT (unrecogniz ed section and content) Reason Comments Initial Visit Reason Comments Miscarriage Reason Comments Post-op Visit Reason Comments Routine Visit Reason Comments Blood Pressure Check Care Teams (unrecognized sec tion and content) Team Status: Inactive Member Role Status Dates Jennifer Huston COPPERSMITH APPRENTICE-C Attending Provider Active Cna Ltc Relationship Specialty Start Date End Date Vaishali Zapata MD [address] [place] [address] PCP - General Family Medicine 02/04/23 Cna Ltc Relationship Specialty Start Date End Date Vaishali Zapata MD [address] [place] [address] PCP - General Family Medicine 02/04/23 Team Status: Active Member Role Status Dates PHYSICIAN NO FAMILY Primary Care Provider Active Team Status: Inactive Member Role Status Dates PHYSICIAN NO FAMILY Primary Care Provider Active Start: August 10, 2024 End: August 10, 2024 Jose Rodriguez DO Attending Provider Active Start : August 10, 2024 End: August 10, 2024 Cna Ltc Relationship Specialty Start Date End Date Unallocated, Arjun Vo MD [address] [place] [address] PCP - General Family Medicine 08/03/24 Cna Ltc Relationship Specialty Start Date End Date Unallocated, Arjun Vo MD [address] [facility] [place] [address] PCP - General Family Medicine 08/03/24 Cna Ltc Relationship Specialty Start Date End Date Unallocated, Arjun Vo MD [address] [facility] [place] [address] PCP - General Family Medicine 08/03/24 Cna Ltc Relationship Specialty Start Date End Date Unallocated, [place] [address] PCP - General Family Medicine 08/03/24 Cna Ltc Relationship Specialty Start Date End Date Unallocated, Arjun Vo MD [facility] [address] [facility] [place] [address] PCP - General Family Medicine 08/03/24 Cna Ltc Relationship Specialty Start Date End Date Unallocated, Arjun Vo MD [facility] [address] [facility] [place] [address] PCP - General Family Medicine 08/03/24 Cna Ltc Relationship Specialty Start Date End Date Unallocated, Arjun Vo MD [facility] [address] [facility] [place] [address] PCP - General Family Medicine 08/03/24 Cna Ltc Relationship Specialty Start Date End Date Unallocated, Arjun Vo MD [facility] [address] [facility] [place] [address] PCP - General Family Medicine 08/03/24 Cna Ltc Relationship Specialty Start Date End Date Unallocated, Arjun Vo MD [facility] [address] [facility] [place] [address] PCP - General Family Medicine 08/03/24 Cna Ltc Relationship Specialty Start Date End Date Unallocated, Arjun Vo MD [facility] [address] [facility] [place] [address] PCP - General Family Medicine 08/03/24 Cna Ltc Relationship Specialty Start Date End Date Unallocated, Arjun Vo MD [facility] [address] [facility] [place] [address] PCP - General Family Medicine 08/03/24 Goals [...] BE BASED ON THE PRIMARY CLINICAL RECORDS. [facility] [employer] [facility]. provides no warranty or guarantee of the accuracy or completeness of information in this document.
--- OUTSIDE RECORDS SUMMARY | 2025-05-11 11:01 | XMS_ITS | Patient Health Record ---
Author Organization [facility] in [place] Address [address] [place] [address] Care Team Providers Care Catalogue Clerk Name Role Phone Jennifer See Primary Care Provider Allergies No Known Allergies Results Component Value Reference Range Notes PREG ([facility]), URINE - IN OFFI CE Reviewed date:07/23/2024 08:22:00 AM Interpretation: Performing Lab: Notes/Report: PREG ([facility]), URINE - IN OFFICE + NEG - NEG Control Present + CBC AUTO DIFF Reviewed date:07/23/2024 08:22:00 AM Interpretation: Performing Lab: Notes/Report: [facility] , White Blood Count 10.6 4.0-11.0 [...] 3/uL Performing Lab: see note ML - [facility] LB DRUG SCREEN RAPID (URINE) Reviewed date:07/23/2024 08:22:00 AM Interpretation: Performing Lab: Notes/Report: REEFLEX IF POSITIVE [facility] , Cannabinoid Screen Urine NEGATIVE NEGATIVE [...] see note ML - [facility] LB GLYCOHEMOGLOBIN A1C Reviewed date:07/23/2024 08:22:00 AM Interpretation: Performing Lab: Notes/Report: [facility] , Glycohemoglobin A1C 4.9 4.5-6.2 % ADA RECOMMENDED LIMIT 4.0 - 6.0 ADA THERAPEUTIC TARGET < 7.0 ACTION SUGGESTED > 7.0 Estimated Average Glucose 94 Performing Lab: see note ML - [facility] LB RUBELLA AB IGG Reviewed date:07/23/2024 08:22:00 AM Interpretation: Performing Lab: Notes/Report: [facility] , Rubella Antibodies, IgG 1.57 Immune > 0.99 index Non-immune <0.90 Equivocal 0.90 - 0.99 Immune >0.99 Performed at: [address] [id number] Olive Brine Tester: Andrew Harris PhD, Phone: [phone] Performing Lab: see note [facility] LB Type and Screen Reviewed date:07/23/2024 08:22:00 AM Interpretation: Performing Lab: Notes/Report: [facility] , Blood Type A Positive Antibody Screen NEGATIVE HIV Ab/p24 Ag with Reflex Reviewed date:07/23/2024 08:22:00 AM Interpretation: Performing Lab: Notes/Report: [facility] , HIV Ab/p24 Ag Screen Non Reactive Non Reactive HIV-1/HIV-2 antibodies and HIV-1 p24 antigen were NOT detected. There is no laboratory evidence of HIV infection. HIV Negative Performed at: [address] [id number] Olive Brine Tester: Andrew Harris PhD, Phone: [phone] Performing Lab: see note [facility] LB Rapid Plasma Reagin, Quant Reviewed date:07/23/2024 [...] utilized, such as Treponema pallidum (Syphilis) Screening [place] (063502) or Rapid Plasma Reagin (RPR) Test With Reflex to Quantitative RPR and Confirmatory Treponema pallidum Antibodies (767278). Performed at: [address] [id number] Olive Brine Tester: Andrew Harris PhD, Phone: [phone] Performing Lab: see note [facility] LB HCV Antibody RFX to Quant PC R Reviewed date:07/23/2024 08:22:00 AM Interpretation: Performing Lab: Notes/Report: [facility] , HCV Ab Non Reactive Non Reactive Interpretation: Comment . Not infected with HCV unless early or acute infection is suspected (which may be delayed in an immunocompromised individual), or other evidence exists to indicate HCV infection. Performing Lab: see note - [facility] LB HBsAg Screen Reviewed date:07/23/2024 08:22:00 AM Interpretation: Performing Lab: Notes/Report: [facility] , HBsAg Screen Negative Negative Performed at: [address] [id number] Olive Brine Tester: Andrew Harris PhD, Phone: [phone] Performing Lab: see note [facility] LB Urine Culture, Routine Reviewed date:07/23/2024 08:22:00 AM Interpretation: Performing Lab: Notes/Report: [facility] , Urine Culture, Routine See Below For Report Urine Culture, Routine Urine Culture, Routine Mixed urogenital tami Urine Culture, Routine Urine Culture, Routine 10,000-25,000 col nan forming units per mL Urine Culture, Routine Urine Culture, Routine Performed at: [facility] Urine Culture, Routine Urine Culture, Routine [address] [place] [id number] Urine Culture, Routine Urine Culture, Routine Olive Brine Tester: Riky Harris PhD, Phone: [phone] Urine Culture, Routine Performing Lab: see note [facility] LB SEE REPORT - Inhalation Therapy Aide Id information not found for OBX-specific inhalation therapist legend CBC AUTO DIFF Reviewed date:08/03/2024 08:30:13 AM Interpretation: Performing Lab: Notes/Report: [facility] , White Blood Count 11.1 [...] see note ML - [facility] LB PREG QUANT HCG Reviewed date:08/03/2024 08:30:13 AM Interpretation: Performing Lab: Notes/Report: [facility] , HCG Quantitative 1656 5-50 0.2-1 WEEK 50-500 1-2 WEEKS 100-5,000 2-3 WEEKS 500-10,000 3-4 WEEKS 1,000-50,000 4-5 WEEKS 10,000-100,000 5-6 WEEKS 15,000-200,000 6-8 WEEKS 10,000-100,000 2-3 MONTHS Performing Lab: see note ML - [facility] LB PROF 14(COMP METB) Reviewed date:08/03/2024 08:30:13 AM Interpretation: Performing Lab: Notes/Report: [facility] , Sodium 140 136-145 mmol/L Potassium [...] Lab: see note ML - [facility] US OB transvaginal Reviewed date:08/03/2024 08:30:13 AM Interpretation: Performing Lab: Notes/Report: Source Facility: [place] [address] Ultrasound Report Signed Patient: VIMAL FUNES MR#: [id number] : 2000 Acct:[id number] Age/Sex: 24 / F ADM Date: 08/02/24 Loc: ER Attending Dr: Ordering Physician: Kishan Cosby Date of Service: 08/02/24 Procedure(s): US OB transvaginal Accession Number(s): [id number] cc: JENNIFER SEE ; Kishan Cosby [place] [address] Patient Name: VIMAL FUNES MRN: [id number] date: 2000 Sex: F Assigned Patient Location: ER Current Patient Location: ER Accession/Order Number: [id number] Exam Date: 08/02/2024 19:17 Report Date: 08/02/2024 [...] M.D. Signed By: 08/02/242126 DD/ 23 TD/TT: Supervisor Hard Candy: [place] [address] Ultrasound Report Signed Patient: VIMAL FUNES MR#: [id number] : 2000 Acct:[id number] Age/Sex: 24 / F ADM Date: 08/02/24 Loc: ER Attending Dr: Ordering Physician: Kishan Cosby Date of Service: 08/02/24 Procedure(s): US OB transvaginal Accession Number(s): [id number] cc: JENNIFER SEE ; Kishan Cosby [place] [phone] Patient Name: VIMAL FUNES MRN: [id number] date: 2000 Sex: F Assigned Patient Location: ER Current Patient Location: ER Accession/Order Number: [id number] Exam Date: 19:17 Report Date: 08/02/2024 21:24 [...] M.D. Signed By: 08/02/242126 DD/ 23 TD/TT: Supervisor Hard Candy: US OB transvaginal Reviewed date:08/10/2024 08:58:56 AM Interpretation: Performing Lab: Notes/Report: Source Facility: [place] [address] Ultrasound Report Signed Patient: VIMAL FUNES MR#: [id number] : 2000 Acct:[id number] Age/Sex: 24 / F ADM Date: 08/10/24 Loc: SURGOUT Attending Dr: Mackenzie Rodriguez D.O. Ordering Physician: Mackenzie Rodriguez D.O. Date of Service: 08/10/24 Procedure(s): US OB transvaginal Accession Number(s): [id number] cc: JENNIFER SEE ; Mackenzie Rodriguez D.O. [place] [address] Patient Name: VIMAL FUNES MRN: [id number] date: 2000 Sex: F Assigned Patient Location: [facility] Current Patient Location: [facility] Accession/Order Number: [id number] Exam Date: 08/10/2024 08:10 Report Date: 08/10/2024 [...] M.D. Signed By: 08/10/24846 DD/ 3 TD/TT: Supervisor Hard Candy: [place] [address] Ultrasound Report Signed Patient: VIMAL FUNES MR#: [id number] : 2000 Acct:[id number] Age/Sex: 24 / F ADM Date: 08/10/24 Loc: SURGOUT Attending Dr: Mackenzie Rodriguez D.O. Ordering Physician: Mackenzie Rodriguez D.O. Date of Service: 08/10/24 Procedure(s): US OB transvaginal Accession Number(s): [id number] cc: JENNIFER SEE ; Mackenzie Rodriguez D.O. The [place] [phone] Patient Name: VIMAL FUNES MRN: [id number] date: 2000 Sex: F Assigned Patient Location: [facility] Current Patient Location: [facility] Accession/Order Number: [id number] Exam Date: 08:10 Report Date: 08/10/2024 08:44 [...] Herrera M.D. Signed By: 08/10/2447 DD/ TD/TT: Supervisor Hard Candy: PREG QUANT HCG Reviewed date:11/20/2024 01:38:35 PM Interpretation: Performing Lab: Notes/Report: [facility] , HCG Quantitative 6254 5-50 0.2-1 WEEK 50-500 1-2 WEEKS 100-5,000 2-3 WEEKS 500-10,000 3-4 WEEKS 1,000-50,000 4-5 WEEKS 10,000-100,000 5-6 WEEKS 15,000-200,000 6-8 WEEKS 10,000-100,000 2-3 MONTHS Performing Lab: see note ML - [facility] LB PREG QUANT HCG Reviewed date:11/22/2024 08:59:16 AM Interpretation: Performing Lab: Notes/Report: [facility] , HCG Quantitative 49955 5-50 0.2-1 WEEK 50-500 1-2 WEEKS 100-5,000 2-3 WEEKS 500-10,000 3-4 WEEKS 1,000-50,000 4-5 WEEKS 10,000-100,000 5-6 WEEKS 15,000-200,000 6-8 WEEKS 10,000-100,000 2-3 MONTHS Performing Lab: see note ML - [facility] LB DRUG SCREEN RAPID (URINE) Reviewed date:01/07/2025 01:05:16 PM Interpretation: Performing Lab: Notes/Report: [facility] , Cannabinoid Screen Urine NEGATIVE NEGATIVE [...] see note ML - [facility] LB Box Test Reviewed date:01/07/2025 01:05:16 PM Interpretation: Performing Lab: Notes/Report: [employer] [facility] , BOX Test Sent Out [employer] [facility] Test Reference Lab [employer] Test Date Sent 01-05-25 Performing Lab: see note ML - [facility] LB IGP,Aptima HPV,Age Gdln Reviewed date:02/25/2025 03:13:18 PM Interpretation: Performing Lab: Notes/Report: SPATULA-ALONE ENDOCERVIX [facility] , Age Gdln ACOG Testing Note . TESTS RESULT FLAG UNITS REF RANGE LAB Clinician Provided Cytology Information Source.............End ocervix No. of containers..01 ThinPrep Vial Age Algo ACOG Yris... -24 10 FLAG LEGEND: L-Low Normal,H-High Normal,LL-Alert Low,HH-Alert High <-Panic Low,>-Panic High,A-Abnormal,AA-Cri tical Abnormal Performed at: 01 =G [facility] [address] [place] [address] Jenise Byrne MD, IGP, rfx Aptima HPV ASCU Note . TESTS RESULT FLAG UNITS REF RANGE LAB DIAGNOSIS: 02 NEGATIVE FOR INTRAEPITHELIAL LESION OR MALIGNANCY. Specimen adequacy: 02 Satisfactory for evaluation. Endocervical and/or squamous metaplastic cells (endocervical component) are present. Performed by: Hussein Alvarez, Hand Fabric Cutter ([facility]) . 02 Note: Note 02 The [...] Low,>-Panic High,A-Abnormal,AA-Cri tical Abnormal Performed at: 02 WB [facility] [address] [address] Jenise Byrne MD, Performed at: =G - [facility] [address] [id number] Olive Brine Tester: Jenise Byrne MD, Phone: [phone] Performed at: - [facility] [id number] Olive Brine Tester: Jenise Byrne MD, Phone: [phone] Performing Lab: see note - [facility] LB US OB incomplete anatomy Reviewed date:03/25/2025 09:01:39 AM Interpretation: Performing Lab: Notes/Report: Source Facility: [place] [address] Ultrasound Report Signed Patient: VIMAL FUNES MR#: [id number] : 2000 Acct:[id number] Age/Sex: 24 / F ADM Date: 03/23/25 Loc: US Attending Dr: Mackenzie Rodriguez D.O. Ordering Physician: Mackenzie Rodriguez D.O. Date of Service: 03/23/25 Procedure(s): US OB incomplete anatomy Accession Number(s): [id number] cc: JENNIFER SEE ; Mackenzie Rodriguez D.O. [place] [address] Patient Name: VIMAL FUNES MRN: [id number] date: 2000 Sex: F Assigned Patient Location: Current Patient Location: US Accession/Order Number: [id number] Exam Date: 03/25/2025 08:23 Report Date: 03/25/2025 [...] Brown M.D. 03/25/2025 8:25 AM Dictation Location: [place] [address] Electronically authenticated by: [id number] Y Date: 03/25/2025 08:25 Dictated By: Meghana Brown M.D. Signed By: 03/25/25826 DD/ 4 TD/TT: Supervisor Hard Candy: [place] [address] Ultrasound Report Signed Patient: VIMAL FUNES MR#: [id number] : 2000 Acct:[id number] Age/Sex: 24 / F ADM Date: 03/23/25 Loc: US Attending Dr: Mackenzie Rodriguez D.O. Ordering Physician: Mackenzie Rodriguez D.O. Date of Service: 03/23/25 Procedure(s): US OB incomplete anatomy Accession Number(s): [id number] cc: JENNIFER SEE ; Mackenzie Rodriguez D.O. [place] [address] Patient Name: VIMAL FUNES MRN: [id number] date: 2000 Sex: F Assigned Patient Location: Current Patient Location: US Accession/Order Number: [id number] Exam Date: 03/25/2025 08:23 Report Date: 03/25/2025 [...] Brown M.D. 03/25/2025 8:25 AM Dictation Location: [place] [address] Electronically authenticated by: [id number] Y Date: 03/25/2025 08:25 Dictated By: Meghana Brown M.D. Signed By: 03/25/25826 DD/ 4 TD/TT: Supervisor Hard Candy: BUN Reviewed date:05/06/2025 10:03:33 AM Interpretation: Performing Lab: Notes/Report: [facility] , Blood Urea Nitrogen 8.0 7.0-18.0 mg/dL Performing Lab: see note ML - [facility] LB CREATININE Reviewed date:05/06/2025 10:03:33 AM Interpretation: Performing Lab: Notes/Report: [facility] , Creatinine 0.37 0.55-1.02 mg/dL Estimated GFR ( Ashley >60 >=60 mL/min/1.73m 2 Estimated GFR (Non- Hortencia >60 >=60 mL/min/1.73m 2 Performing Lab: see note ML - [facility] LB LDH Reviewed date:05/06/2025 10:03:33 AM Interpretation: Performing Lab: Notes/Report: [facility] , Lactate Dehydrogenase 163 81-234 U/L Performing Lab: see note ML - [facility] LB PTT Reviewed date:05/06/2025 10:03:33 AM Interpretation: Performing Lab: Notes/Report: [facility] , Partial Thromboplastin Time 25.7 22.3-36.2 sec Performing Lab: see note ML - [facility] LB SGOT Reviewed date:05/06/2025 10:03:33 AM Interpretation: Performing Lab: Notes/Report: [facility] , Aspartate Amino Transferase 23 15-37 U/L Performing Lab: see note - [facility] LB URIC ACID SERUM Reviewed date:05/06/2025 10:03:33 AM Interpretation: Performing Lab: Notes/Report: [facility] , Uric Acid 3.7 2.6-6.0 mg/dL Performing Lab: see note - [facility] LB Prothrombin Time INR Reviewed date:05/06/2025 10:03:33 AM Interpretation: Performing Lab: Notes/Report: [facility] , Prothrombin Time 10.1 9.0-11.6 sec INR 0.95 DESIRED INR: 2.0-3.0 CONDITIONS NOT LISTED BELOW 2.5-3.5 FOR PROSTHETIC HEART VALVE REPLACEMENT 2.5-3.5 RECURRENT THROMBOSIS Performing Lab: see note - [facility] US OB BPP w non-stress Reviewed date:05/06/2025 10:03:33 AM Interpretation: Performing Lab: Notes/Report: Source Facility: [place] [address] Ultrasound Report Signed Patient: VIMAL FUNES MR#: [id number] : 2000 Acct:[id number] Age/Sex: 25 / F ADM Date: 05/04/25 Loc: [facility] 250- Attending Dr: Rossana Leach Ordering Physician: Rossana Leach Date of Service: 05/04/25 Procedure(s): US OB BPP w non-stress Accession Number(s): [id number] cc: Rossana Leach; JENNIFER SEE [place] [address] Patient Name: VIMAL FUNES MRN: [id number] date: 2000 Sex: F Assigned Patient Location: [facility] Current Patient Location: [facility] Accession/Order Number: [id number] Exam Date: 05/04/2025 12:08 Report Date: 05/04/2025 12:09 At the request of: ROSSANA LEACH Procedure: US OB BPP w non-stress Biophysical profile. Reason for exam: Gestational diabetes COMPARISON: None TECHNIQUE: Transabdominal imaging of the gravid uterus was obtained. FINDINGS: The bacon skin lifter reports a BPP of 8 out of 8. DANYA is normal at 12.4 cm. heart rate 150 bpm. US/US OB BPP w non-stress IMPRESSION: BPP 8 out of 8. Impression dictated by: Bulmaro Arias Jr., D.O. 05/04/2025 12:09 PM Dictation Location: [employer] Electronically authenticated by: [id number] Y Date: 05/04/2025 12:09 Dictated By: Bulmaro Arias M.D. Signed By: 05/04/25 1212 DD/ 1209 TD/TT: Supervisor Hard Candy: [place] [address] Ultrasound Report Signed Patient: VIMAL FUNES MR#: [id number] : 2000 Acct:[id number] Age/Sex: 25 / F ADM Date: 05/04/25 Loc: [facility] 250-[address]: Rossana Leach Ordering Physician: Rossana Leach Date of Service: 05/04/25 Procedure(s): US OB BPP w non-stress Accession Number(s): [id number] cc: Rossana Leach; JENNIFER SEE [place] [address] Patient Name: VIMAL FUNES MRN: [id number] date: 2000 Sex: F Assigned Patient Location: [facility] Current Patient Location: [facility] Accession/Order Number: [id number] Exam Date: 05/04/2025 12:08 Report Date: 05/04/2025 12:09 At the request of: ROSSANA LEACH Procedure: US OB fet al BPP w non-stress Biophysical profile. Reason for exam: Gestational diabetes COMPARISON: None TECHNIQUE: Transabdominal imaging of the gravid uterus was obtained. FINDINGS: The bacon skin lifter reports a BPP of 8 out of 8. DANYA is normal at 12.4 cm. heart rate 150 bpm. US/US OB BPP w non-stress IMPRESSION: BPP 8 ou t of 8. Impression dictated by: Bulmaro Arias Jr., D.O. 05/04/2025 12:09 PM Dictation Location: [employer] Electronically authenticated by: [id number] Y Date: 05/04/2025 12:09 Dictated By: Bulmaro Arias M.D. Signed By: 05/04/25 1212 DD/ 1209 TD/TT: Supervisor Hard Candy: US OB growth Reviewed date:05/06/2025 10:03:33 AM Interpretation: Performing Lab: Notes/Report: Source Facility: [place] [address] Ultrasound Report Signed Patient: VIMAL FUNES MR#: [id number] : 2000 Acct:[id number] Age/Sex: 25 / F ADM Date: 05/04/25 Loc: [place] [address]: Rossana Leach Ordering Physician: Rossana Leach Date of Service: 05/04/25 Procedure(s): US OB growth Accession Number(s): [id number] cc: Rossana Leach; JENNIFER SEE [place] [address] Patient Name: VIMAL FUNES MRN: [id number] date: 2000 Sex: F Assigned Patient Location: [facility] Current Patient Location: [facility] Accession/Order Number: [id number] Exam Date: 05/04/2025 12:06 Report Date: 05/04/2025 [...] Jr., D.O. 05/04/2025 12:08 PM Dictation Location: [employer]18 Electronically authenticated by: [id number] Y Date: 05/04/2025 12:08 Dictated By: Bulmaro Arias M.D. Signed By: 05/04/25 1211 DD/ 1208 TD/TT: Supervisor Hard Candy: [address] [address] Ultrasound Report Signed Patient: VIMAL FUNES MR#: [id number] : 2000 Acct:[id number] Age/Sex: 25 / F ADM Date: 05/04/25 Loc: [facility] 250-[address]: Rossana Leach Ordering Physician: Rossana Leach Date of Service: 05/04/25 Procedure(s): US OB growth Accession Number(s): [id number] cc: Rossana Leach; JENNIFER SEE [place] [phone] Patient Name: VIMAL FUNES MRN: [id number] date: 2000 Sex: F Assigned Patient Location: [facility] Current Patient Location: [facility] Accession/Order Number: [id number] Exam Date: 05/04/2025 12:06 Report Date: 05/04/2025 [...] Jr., D.O. 05/04/2025 12:08 PM Dictation Location: [employer] Electronically authenticated by: [id number] Y Date: 05/04/2025 12:08 Dictated By: Bulmaro Arias M.D. Signed By: 05/04/25 1211 DD/ 1208 TD/TT: Supervisor Hard Candy: Glucose Tolerance 3 Hour Reviewed date:05/06/2025 10:03:33 AM Interpretation: Performing Lab: Notes/Report: [facility] , Glucose Tolerance 3 Hour GLU FAST 108H (<95) Col: 05/04/25 0723 GLU 1HR 234H (<180) Col: 05/04/25 0826 GLU 2HR 186H (<155) Col: 05/04/25 0927 GLU 3HR 133 (<140) Col: 05/04/25 1028 Performing Lab: see note ML - [facility] LB CBC AUTO DIFF Reviewed date:05/06/2025 10:03:33 AM Interpretation: Performing Lab: Notes/Report: [facility] , White Blood Count 12.5 4.0-11.0 10 [...] see note ML - [facility] LB Glucose 1 Hour Reviewed date:04/29/2025 09:37:12 AM Interpretation: Performing Lab: Notes/Report: [facility] , Glucose 1 Hour 171 <130 mg/dL Performing Lab: see note ML - [facility] LB CBC AUTO DIFF Reviewed date:04/29/2025 09:37:12 AM Interpretation: Performing Lab: Notes/Report: [facility] , White Blood Count 12.5 4.0-11.0 10 [...] see note ML - [facility] LB US OB anatomy Reviewed date:03/14/2025 10:39:54 AM Interpretation: Performing Lab: Notes/Report: Source Facility: [place] [address] Ultrasound Report Signed Patient: VIMAL FUNES MR#: [id number] : 2000 Acct:[id number] Age/Sex: 24 / F ADM Date: 03/08/25 Loc: US Attending Dr: Mackenzie Rodriguez D.O. Ordering Physician: Mackenzie Rodriguez D.O. Date of Service: 03/08/25 Procedure(s): US OB anatomy Accession Number(s): [id number] cc: JENNIFER SEE ; Mackenzie Rodriguez D.O. [place] [address] Patient Name: VIMAL FUNES MRN: [id number] date: 2000 Sex: F Assigned Patient Location: US Current Patient Location: US Accession/Order Number: [id number] Exam Date: 03/08/2025 20:31 Report Date: 03/08/2025 [...] Knapp M.D. 03/08/2025 8:36 PM [facility] by: [id number] Y Date: 03/08/2025 20:36 Dictated By: Shivam Knapp D.O. Signed By: 03/08/252037 DD/ 35 TD/TT: Supervisor Hard Candy: [place] [address] Ultrasound Report Signed Patient: VIMAL FUNES MR#: [id number] : 2000 Acct:[id number] Age/Sex: 24 / F ADM Date: 03/08/25 Loc: US Attending Dr: Mackenzie Rodriguez D.O. Ordering Physician: Mackenzie Rodriguez D.O. Date of Service: 03/08/25 Procedure(s): US OB anatomy Accession Number(s): [id number] cc: JENNIFER SEE ; Mackenzie Rodriguez D.O. [place] [address] Patient Name: VIMAL FUNES MRN: [id number] date: 2000 Sex: F Assigned Patient Location: US Current Patient Location: US Accession/Order Number: [id number] Exam Date: 03/08/2025 20:31 Report Date: 03/08/2025 [...] Knapp M.D. 03/08/2025 8:36 PM [facility]ictation [facility] Electronically authenticated by: [id number] Y Date: 03/08/2025 20:36 Dictated By: Shivam Knapp D.O. Signed By: 03/08/252037 DD/ 35 TD/TT: Supervisor Hard Candy: US OB cervical length Reviewed date:03/14/2025 10:39:54 AM Interpretation: Performing Lab: Notes/Report: Source Facility: [place] [address] Ultrasound Report Signed Patient: VIMAL FUNES MR#: [id number] : 2000 Acct:[id number] Age/Sex: 24 / F ADM Date: 03/08/25 Loc: US Attending Dr: Mackenzie Rodriguez D.O. Ordering Physician: Mackenzie Rodriguez D.O. Date of Service: 03/08/25 Procedure(s): US OB cervical length Accession Number(s): [id number] cc: JENNIFER SEE ; Mackenzie Rodriguez D.O. [place] [address] Patient Name: VIMAL FUNES MRN: [id number] date: 2000 Sex: F Assigned Patient Location: US Current Patient Location: US Accession/Order Number: [id number] Exam Date: 03/08/2025 20:31 Report Date: 03/08/2025 [...] Knapp M.D. 03/08/2025 8:36 PM [facility] Electron[facility]ated by: [id number] Y Date: 03/08/2025 20:36 Dictated By: Shivam Knapp D.O. Signed By: 03/08/252037 DD/ 35 TD/TT: Supervisor Hard Candy: [place] [address] Ultrasound Report Signed Patient: VIMAL FUNES MR#: [id number] : 2000 Acct:[id number] Age/Sex: 24 / F ADM Date: 03/08/25 Loc: US Attending Dr: Mackenzie Rodriguez D.O. Ordering Physician: Mackenzie Rodriguez D.O. Date of Service: 03/08/25 Procedure(s): US OB cervical length Accession Number(s): [id number] cc: JENNIFER SEE Corey D.O. [place] [phone] Patient Name: VIMAL FUNES MRN: [id number] date: 2000 Sex: F Assigned Patient Location: US Current Patient Location: US Accession/Order Number: [id number] Exam Date: 03/08/2025 20:31 Report Date: 03/08/2025 [...] Knapp M.D. 03/08/2025 8:36 PM Dictation Location: [email or web address] Electronically authenticated by: [id number] Y Date: 03/08/2025 20:36 Dictated By: Shivam Knapp D.O. Signed By: 03/08/252037 DD/ 35 TD/TT: Supervisor Hard Candy: Urine Culture, Routine Reviewed date:01/07/2025 01:05:16 PM Interpretation: Performing Lab: Notes/Report: [facility] , Urine Culture, Routine See Below For Report Urine Culture, Routine Urine Culture, Routine Mixed urogenital tami Urine Culture, Routine Urine Culture, Routine 50,000-100,000 co lony forming units per mL Urine Culture, Routine Urine Culture, Routine Performed at: [facility] [facility] Urine Culture, Routine Urine Culture, Routine [address] [place], [place] [id number] Urine Culture, Routine Urine Culture, Routine Olive Brine Tester: Riky aHrris PhD, Phone: [phone] Urine Culture, Routine Performing Lab: see note - [facility] LB SEE REPORT - Inhalation Therapy Aide Id information not found for OBX-specific inhalation therapist legend HBsAg Screen Reviewed date:01/07/2025 01:05:16 PM Interpretation: Performing Lab: Notes/Report: [facility] , HBsAg Screen Negative Negative Performed at: [address] [id number] Olive Brine Tester: Andrew Harris PhD, Phone: [phone] Performing Lab: see note - [facility] LB HCV Antibody RFX to Quant PC R Reviewed date:01/07/2025 01:05:16 PM Interpretation: Performing Lab: Notes/Report: [facility] , HCV Ab Non Reactive Non Reactive Interpretation: Comment . Not infected with HCV unless early or acute infection is suspected (which may be delayed in an immunocompromised individual), or other evidence exists to indicate HCV infection. Performed at: [address] [id number] Olive Brine Tester: Andrew Harris PhD, Phone: [phone] Performing Lab: see note [facility] LB Rapid Plasma Reagin, Quant Reviewed date:01/07/2025 [...] utilized, such as Treponema pallidum (Syphilis) Screening [place] (095063) or Rapid Plasma Reagin (RPR) Test With Reflex to Quantitative RPR and Confirmatory Treponema pallidum Antibodies (921147). Performed at: [address] [id number] Olive Brine Tester: Andrew Harris PhD, Phone: [phone] Performing Lab: see note [facility] HIV Ab/p24 Ag with Reflex Reviewed date:01/07/2025 01:05:16 PM Interpretation: Performing Lab: Notes/Report: [facility] , HIV Ab/p24 Ag Screen Non Reactive Non Reactive HIV-1/HIV-2 antibodies and HIV-1 p24 antigen were NOT detected. There is no laboratory evidence of HIV infection. HIV Negative Performed at: [address] [id number] Olive Brine Tester: Andrew Harris PhD, Phone: [phone] Performing Lab: see note [facility] LB Type and Screen Reviewed date:01/07/2025 01:05:16 PM Interpretation: Performing Lab: Notes/Report: [facility] , Blood Type A Positive Antibody Screen NEGATIVE RUBELLA AB IGG Reviewed date:01/07/2025 01:05:16 PM Interpretation: Performing Lab: Notes/Report: [facility] , Rubella Antibodies, IgG 1.57 Immune > 0.99 index Non-immune <0.90 Equivocal 0.90 - 0.99 Immune >0.99 Performed at: [address] [id number] Olive Brine Tester: Andrew Harris PhD, Phone: [phone] Performing Lab: see note [facility] GLYCOHEMOGLOBIN A1C Reviewed date:01/07/2025 01:05:16 PM Interpretation: Performing Lab: Notes/Report: [facility] , Glycohemoglobin A1C 5.0 4.5-6.2 % ADA RECOMMENDED LIMIT 4.0 - 6.0 ADA THERAPEUTIC TARGET < 7.0 ACTION SUGGESTED > 7.0 Estimated Average Glucose 97 Performing Lab: see note [facility] CBC AUTO DIFF Reviewed date:01/07/2025 01:05:16 PM Interpretation: Performing Lab: Notes/Report: [facility] , White Blood Count 9.2 [...] Lab: see note ML - [facility] PREG QUANT HCG Reviewed date:08/20/2024 11:36:34 AM Interpretation: Performing Lab: Notes/Report: [facility] Quantitative 6 5-50 0.2-1 WEEK 50-500 1-2 WEEKS 100-5,000 2-3 WEEKS 500-10,000 3-4 WEEKS 1,000-50,000 4-5 WEEKS 10,000-100,000 5-6 WEEKS 15,000-200,000 6-8 WEEKS 10,000-100,000 2-3 MONTHS Performing Lab: see note ML - [facility] PREG QUANT HCG Reviewed date:08/10/2024 08:58:56 AM Interpretation: Performing Lab: Notes/Report: [facility] Quantitative 240 5-50 0.2-1 WEEK 50-500 1-2 WEEKS 100-5,000 2-3 WEEKS 500-10,000 3-4 WEEKS 1,000-50,000 4-5 WEEKS 10,000-100,000 5-6 WEEKS 15,000-200,000 6-8 WEEKS 10,000-100,000 2-3 MONTHS Performing Lab: see note ML - [facility] CBC AUTO DIFF Reviewed date:08/10/2024 08:58:56 AM Interpretation: Performing Lab: Notes/Report: [facility] , White Blood Count 8.9 4.0-11.0 [...] 3/uL Performing Lab: see note ML - [facility] LB Box Test Reviewed date:07/23/2024 08:22:00 AM Interpretation: Performing Lab: Notes/Report: [facility] , BOX Test Sent Out [employer] BOX Test Reference Lab UNITY BOX Test Date Sent 07/21/24 Performing Lab: see note - [facility] LB Total Protein 24 Hour Urine Reviewed date:05/07/2025 09:01:34 AM Interpretation: Performing Lab: Notes/Report: [facility] , Total Protein Urine Random <6.0 <=11.9 mg/dL Total Volume 24 Hour Urine 3700 Performing Lab: see note - [facility] Reason For Referral No Information Medications Medication [...] 06/05/2024 Encounters Encounter Location Date Provider Diagnosis [facility] [address] [place] [address] 06/05/2024 Jennifer See Z33.1 and Wellness examination [...] ACCESS PPO PLUS LOCAL PLAN [address] [place] [phone] [id number] Vimal Funes Self - patient is the insured [employer] [place] [employer] [address] [place] [address] [phone] [id number] Vimal Funes Self - patient is the insured Medical (General) History Medical History History ICD Code lead poisoning Surgical History Surgery Date(Month/Year) ear tubes
--- OUTSIDE RECORDS SUMMARY | 2025-05-11 11:01 | XMS_ITS | Encounter Summary ---
Author Organization [facility] Address [address] [place] [address] Care Team Providers Care Domestic Maid Name Role Phone Unallocated, Noms Provider Primary Care Provi krissy Encounter Details Date Type Department Care Team (Late st Contact Info) Description 03/06/2025 Orders Only ARJUN PANG [address] [place] [address] Kavitha Almanza MA Social History Tobacco [...] 2:40 PM EDT Routine NOMMay PANG [address] [place] [address] Jose Rodriguez DO [address] [place], [facility] documented as of this encounter Procedures Procedure Name Priority Date/Time Associated Diagnosis Comments PAP SMEAR Routine 02/20/2025 12:00 AM EDT documented in this encounter Results * Pap Smear (02/20/2025 12:00 AM EDT) Swab Cervical swab / Unknown us [facility] CYTOLOGY ORDERABLES Final Re sult EXTERNAL LAB documented in this encounter Visit Diagnoses Not on filedocumented in this encounter Care Teams Domestic Maid Relationship Specialty Start Date End Date Unallocated, Noms Provider, [address] [place] [id number] PCP - General Family Medicine 08/03/24 documented as of this encounter
--- OUTSIDE RECORDS SUMMARY | 2025-05-11 11:01 | XMS_ITS | Encounter Summary ---
Author Organization [facility] Address [address] [place] [address] Care Team Providers Care Sampler And Test Preparer Name Role Phone Unallocated, Noms Provider Primary Care Provi krissy Encounter Details Date Type Department Care Team (Late st Contact Info) Description 03/11/2025 Results Follow-Up [facility] [place] [facility] [address] [place] [address] Glenna Butler LPN [address] [place] [address] [place] OB ANATOMY Social History [...] PM EDT Routine [facility] [place] [facility] [address] [phone] Jose Rodriguez DO [address] [place] [address] documented as of this encounter Visit Diagnoses Not on filedocumented in this encounter Care Teams Sampler And Test Preparer Relationship Specialty Start Date End Date Unallocated, Noms Gilda, [address] [place] [address] PCP - General Family Medicine 08/03/24 documented as of this encounter
--- OUTSIDE RECORDS SUMMARY | 2025-05-11 11:01 | XMS_ITS | Encounter Summary ---
Author Organization [facility] Address [address] [place] [address] Care Team Providers Care Senior Analysis Specialist Name Role Phone Unallocated, Noms Provider Primary Care Provi krissy Encounter Details Date Type Department Care Team (Late Contact Info) Description 03/28/2025 Abstract ARJUN PANG [facility] [place] [address] Jose Rodriguez DO [address] [place], [facility] Social History Tobacco Use Types Packs/Day [...] EDT Routine NOM[facility] PANG [address] [place] [address] Jose Rodriguez DO [address] [facility] [facility] [address] [place] [address] documented as of this encounter Visit Diagnoses Not on filedocumented in this encounter Care Teams Senior Analysis Specialist Relationship Specialty Start Date End Date Unallocated, Noms Provider, [place] [address] PCP - General Family Medicine 08/03/24 documented as of this encounter
--- OUTSIDE RECORDS SUMMARY | 2025-05-11 11:01 | XMS_ITS | Clinical Summary ---
Author Organization [facility] Address [address] [place] [address] Care Team Providers Care Insurance Processor Name Role Phone Unallocated, Noms Provider Primary [...] antepartum, gestational diabetes method of control unspecified ([facility]),Elevat ed glucose tolerance test 1 kit [...] Department Care Team Description 05/08/2025 [place] [id number] Mackenzie Rodriguez DO 05/07/2025 Results [place] [address] Glenna Butler, MARILU ALL CBC WITH AUTO DIFF, SRMCOH PROTHROMBIN TIME INR W/O COUM, [facility] APTT, Additional followed-up results: 6 05/06/2025 Clinisync Result Encounter NOMS External Department Unsolicited Rossana Leach PA 05/04/2025 Clinisync Result Encounter NOMS External Department Unsolicited Rossana Leach PA 05/04/2025 Clinisync Result Encounter NOMS External Department Unsolicited Rossana Leach PA 05/04/2025 Telephone [facility] [address] [place] [address] Mackenzie Rodriguez DO 05/04/2025 Clinisync Result Encounter NOMS External Department Unsolicited Rossana Leach PA 04/30/2025 10:50 AM EDT Routine [facility] [address] [place] [address] Rossana Leach PA BP check; -induced hypertension in third trimester ([facility]); Gestational diabetes mellitus (GDM) in third trimester, gestational diabetes method of control unspecified ([facility]) 04/30/2025 Bamboo flowsheet [facility] [address] [place] [address] Rossana Leach PA 04/29/2025 Telephone [facility] [address] [place] [address] Kavitha Almanza MA 04/27/2025 Clinisync Result Encounter NOMS External Department Unsolicited Rossana Leach PA 04/25/2025 2:50 PM EDT Office Visit [facility] [address] [place] [address] Rossana Leach PA Second trimester ([facility]); 27 weeks gestation of ([facility]); induced hypertension, antepartum ([facility]) 04/25/2025 Bamboo flowsheet [facility] [address] [place] [address] Rossana Leach PA 04/11/2025 3:30 PM EDT Routine [facility] [address] [place] [address] Rossana Leach PA Second trimester ([facility]); 25 weeks gestation of ([facility]); Diabetes mellitus screening; Elevated BP without diagnosis of hypertension 04/11/2025 Bamboo flowsheet [facility] [address] [place] [address] Rossana Leach PA 03/28/2025 Abstract [facility] [address] [place] [address] Mackenzie Rodriguez, 03/25/2025 Clinisync Result Encounter NOMS External Department Unsolicited Mackenzie Rodriguez, DO 03/14/2025 10:50 AM EDT Routine [facility] [address] [place] [address] Mackenzie Rodriguez, DO Second trimester ([facility]); 21 weeks gestation of ([facility]) 03/14/2025 Bamboo flowsheet [facility] [address] [place] [address] Mackenzie Rodriguez, 03/11/2025 Results Follow-Up [facility] [address] [place] [address] Glenna Butler LPN OB ANATOMY 03/11/2025 Telephone [facility] [address] [place] [address] Glenna Butler LPN 03/08/2025 Clinisync Result Encounter NOMS External Department Unsolicited Mackenzie Rodriguez, 03/08/2025 Clinisync Result Encounter NOMS External Department Unsolicited Mackenzie Rodriguez, 03/06/2025 Orders Only [facility] [address] [place] [address] Kavitha Almanza MA 02/20/2025 3:40 PM EDT Routine [facility] [address] [place] [address] Rossana Leach PA Screening, , for anatomic survey ([facility]); Well woman exam with routine gynecological exam; STD exposure; Second trimester ([facility]); 18 weeks gestation of ([facility]); Urinary frequency 02/20/2025 Clinisync Result Encounter NOMS External Department Unsolicited Rossana Leach PA 02/20/2025 External Result Encounter NOMS External Department Unsolicited Rossana Leach PA 02/20/2025 Bamboo flowsheet [facility] [address] [place] [phone] Rossana Leach PA from Last 3 Months [...] PM EDT Routine [facility] [address] [place] [address] Mackenzie Rodriguez [address] [place]ué [place] [id number] Health Maintenance Due Date Last Done Comments [...] Routine 04/25/2025 3:12 PM EDT Second trimester ([facility]) POCT URINALYSIS DIPSTICK Routine 04/11/2025 3:44 PM EDT Second trimester ([facility]) US OB INCOMPLETE ANATOMY 03/25/2025 8:25 AM EDT POCT URINALYSIS DIPSTICK Routine 03/14/2025 11:39 AM EDT Second trimester ([facility]) US OB CERVICAL LENGTH 03/08/2025 8:36 PM EDT US OB ANATOMY 03/08/2025 8:36 PM EDT RECURRENT VAGINITIS (HTRX) Routine 02/20/2025 4:33 PM EDT URINARY TRACT INFECTION (HTRX) Routine 02/20/2025 4:30 PM EDT POCT URINALYSIS DIPSTICK Routine 02/20/2025 4:18 PM EDT 18 weeks gestation of ([facility]) IGP,APTIMA HPV,AGE GDLN Routine 02/20/2025 3:50 PM [...] PM EDT Narrative 05/04/2025 12:12 [place] [address] Ultrasound Report Signed Patient: VIMAL FUNES MR#: [id number] : 2000 Acct:[id number] Age/Sex: 25 / F ADM Date: 05/04/25 Loc: [facility] 250-[address]: Rossana Leach Ordering Physician: Rossana Leach Date of Service: 05/04/25 Procedure(s): US OB BPP w non-stress Accession Number(s): [id number] cc: Rossana Leach; [place] [address] Patient Name: VIMAL FUNES MRN: [id number] date: 2000 Sex: F Assigned Patient Location: [facility] Current Patient Location: [facility] Accession/Order Number: [id number] Exam Date: 05/04/2025 12:08 Report Date: 05/04/2025 12:09 At the request of: ROSSANA LEACH Procedure: US OB BPP w non-stress Biophysical profile. Reason for exam: Gestational diabetes COMPARISON: None TECHNIQUE: Transabdominal imaging of the gravid uterus was obtained. FINDINGS: The copy lathe operator reports a BPP of 8 out of 8. DANYA is normal at 12.4 cm. heart rate 150 bpm. US/US OB BPP w non-stress IMPRESSION: BPP 8 out of 8. Impression dictated by: Bulmaro Arias Jr., D.O. 05/04/2025 12:09 PM Dictation Location: [place] [address] Electronically authenticated by: [id number] Y Date: 05/04/2025 12:09 Dictated By: Bulmaro Arias M.D. Signed By: 05/04/251211 DD/ 08 TD/TT: Transfill Technician: Procedure Note Radiology, Radiologist, - 05/04/2025 [place] [address] Ultrasound Report Signed Patient: VIMAL FUNES MMR#: [id number] : 2000Acct:[id number] Age/Sex: 25 / FADM Date: 05/04/25 Loc: [facility] 250-[address]: Rossana Leach Ordering Physician: Rossana Leach Date of Service: 05/04/25 Procedure(s): US OB BPP w non-stress Accession Number(s): [id number] cc: Rossana Leach; LUIS SEE [place] [id number] Patient Name: VIMAL FUNES MRN: [id number] date: 2000 Sex: F Assigned Patient Location: [facility] Current Patient Location: [facility] Accession/Order Number: [id number] Exam Date: 05/04/2025 12:08 Report Date: 05/04/2025 12:09 At the request of: ROSSANA LEACH Procedure: US OB BPP w non-stress Biophysical profile. Reason for exam: Gestational diabetes COMPARISON: None TECHNIQUE: Transabdominal imaging of the gravid uterus was obtained. FINDINGS: The copy lathe operator reports a BPP of 8 out of 8. DANYA is normal at12.4 cm. heart rate 150 bpm. US/US OB BPP w non-stress IMPRESSION: BPP 8 out of 8. Impression dictated by: Bulmaro Arias Jr., D.O. 05/04/2025 12:09 PM Dictation Location: [place] [address] Electronically authenticated by: [id number] Y Date: 2:09 Dictated By: Bulmaro Arias M.D. Signed By:05/04/25 121 DD/ 08 TD/TT: Transfill Technician: us Rossana BISWAS CLINISYNC IMAGING Final Result * US OB GROWTH (05/04/2025 12:08 PM EDT) Anatomical Region Laterality Modality Other 05/04/2025 12:0 8 PM EDT Narrative 05/04/2025 12:11 [place] [address] Ultrasound Report Signed Patient: VIMAL FUNES MR#: [id number] : 2000 Acct:[id number] Age/Sex: 25 / F ADM Date: 05/04/25 Loc: [facility] [address]: Rossana Leach Ordering Physician: Rossana Leach Date of Service: 05/04/25 Procedure(s): US OB growth Accession Number(s): [id number] cc: Rossana Leach; LUIS SEE [place] [id number] Patient Name: VIMAL FUNES MRN: [id number] date: 2000 Sex: F Assigned Patient Location: [facility] Current Patient Location: [facility] Accession/Order Number: [id number] Exam Date: 05/04/2025 12:06 Report Date: 05/04/2025 [...] Jr., D.O. 05/04/2025 12:08 PM Dictation Location: [employer] Electronically authenticated by: [id number] Y Date: 05/04/2025 12:08 Dictated By: Bulmaro Arias M.D. Signed By: 05/04/25 1211 DD/ 1208 TD/TT: Transfill Technician: Procedure Note Radiology, Radiologist, - 05/04/2025 [place] [address] Ultrasound Report Signed Patient: VIMAL FUNES MMR#: [id number] : 2000Acct:[id number] Age/Sex: 25 / FADM Date: 05/04/25 Loc: [facility] 250-[address]: Rossana Leach Ordering Physician: Rossana Leach Date of Service: 05/04/25 Procedure(s): US OB growth Accession Number(s): [id number] cc: Rossana Leach; LUIS SEE [place] [id number] Patient Name: VIMAL FUNES MRN: [id number] date: 2000 Sex: F Assigned Patient Location: [facility] Current Patient Location: [facility] Accession/Order Number: [id number] Exam Date: 05/04/2025 12:06 Report Date: 05/04/2025 [...] Jr., D.O. 05/04/2025 12:08 PM Dictation Location: [employer] [facility] [employer] Electronically authenticated by: [id number] Y Date: :08 Dictated By: Bulmaro Arias M.D. Signed By:05/04/25 1211 DD/ 1208 TD/TT: Transfill Technician: Rossana ORR IMAGING Final Result * (ABNORMAL) [facility] CREATININE (05/04/2025 7:23 AM EDT) CREATININE 0.37(L) 0.55 - 1.02 mg/dL TBH TBH EGFR-AF PORTUGUESE >60 >=60 mL/min/1.7 3m 2 TBH [facility]H EGFR-NON AF [place]UESE >60 >=60 mL/min/1.7 3m 2 TBH 05/04/2025 7:23 AM EDT 05/04/2025 7:30 AM EDT Narrative CLINISYNC - 05/04/2025 8:21 AM EDT Rossana ROSENBERGISYNC Final Result Performing Organization Address City/[facility]/ZIP Co de Phone Number [facility] * (ABNORMAL) GLUCOSE TOLERANCE 3 HOUR (05/04/2025 [...] BISWAS LAB BLOOD ORDERABLES Final Resul t [facility] * [facility] PROTHROMBIN TIME INR [...] Rossana ORR Final Result Performing Organization Address [facility]/ZIP Co de Phone Number [facility] * [facility] AST (05/04/2025 7:23 AM EDT) ASPARTATE AMINO TRANSFERASE 23 15 - 37 U/L TB 05/04/2025 7:23 AM EDT 05/04/2025 7:30 AM EDT Narrative CLINISYNC - 05/04/2025 8:21 AM EDT us Rossana ROSENBERGISYPROSPER Final Result Performing Organization Address [facility] de Phone Number [facility] * [facility] APTT (05/04/2025 7:23 AM EDT) PARTIAL THROMBOPLASTIN TIME 25.7 22.3 - 36.2 sec TB 05/04/2025 7:23 AM EDT 05/04/2025 7:30 AM EDT Narrative CLINISYNC - 05/04/2025 8:04 AM EDT Rossana ORR Final Result Performing Organization Address [facility] de Phone Number [facility] * ALL URIC ACID (05/04/2025 7:23 AM [...] BISWAS CLINISYNC Final Result Performing Organization Address [facility] de Phone Number CL[facility] * (ABNORMAL) ALL CBC WITH AUTO DIFF (05/04/2025 7:23 AM EDT) Only the most recent of2 resultswithin the time period is included. Pathologist [facility] WBC 12.5(H) 4.0 - 11.0 10 [...] Rossana ORR Final Result Performing Organization Address [facility] de Phone Number [facility] * ALL BUN (05/04/2025 7:23 AM EDT) BLOOD UREA NITROGEN 8.0 7.0 - 18.0 mg/dL TB 05/04/2025 7:23 AM EDT 05/04/2025 7:30 AM EDT Narrative CLINISYNC - 05/04/2025 8:21 AM EDT Rossana ORR Final Result Performing Organization Address [facility] de Phone Number [facility] * (ABNORMAL) POCT urinalysis dipstick manually resulted [...] AM EDT 04/27/2025 10:06 AM EDT Narrative CLINISYRI - 04/27/2025 10:45 AM EDT Rossana BISWAS LAB BLOOD ORDERABLES Final Resul t [facility] * US OB INCOMPLETE ANATOMY (03/25/2025 8:25 AM EDT) Anatomical Region Laterality Modality Other 03/25/2025 8:25 AM EDT Narrative 03/25/2025 8:27 AM EDT [address] [address] Ultrasound Report Signed Patient: VIMAL FUNES MR#: [id number] : 2000 Acct:[id number] Age/Sex: 24 / F ADM Date: 03/23/25 Loc: US Attending Dr: Mackenzie Rodriguez D.O. Ordering Physician: Mackenzie Rodriguez D.O. Date of Service: 03/23/25 Procedure(s): US OB incomplete anatomy Accession Number(s): [id number] cc: LUIS SEE ; Mackenzie Rodriguez D.O. [address] [address] Patient Name: VIMAL FUNES MRN: [id number] date: 2000 Sex: F Assigned Patient Location: US Current Patient Location: US Accession/Order Number: [id number] Exam Date: 03/25/2025 08:23 Report Date: 03/25/2025 [...] Brown M.D. 03/25/2025 8:25 AM Dictation Location: [place] [address] Electronically authenticated by: [id number] Y Date: 03/25/2025 08:25 Dictated By: Meghana Brown M.D. Signed By: 03/25/25826 DD/ 4 TD/TT: Transfill Technician: Procedure Note Radiology, Radiologist, MD - 03/25/2025 [place] [address] Ultrasound Report Signed Patient: VIMAL FUNES MMR#: [id number] : 2000Acct:[id number] Age/Sex: 24 FADM Date: 03/23/25 Loc: US Attending Dr: Mackenzie Rodriguez D.O. Ordering Physician: Mackenzie Rodriguez D.O. Date of Service: 03/23/25 Procedure(s): US OB incomplete anatomy Accession Number(s): [id number] cc: LUIS SEE ; Mackenzie Rodriguez D.O. [place] [id number] Patient Name: VIMAL FUNES MRN: [id number] date: 2000 Sex: F Assigned Patient Location: US Current Patient Location: US Accession/Order Number: [id number] Exam Date: 03/25/2025 08:23 Report Date: 03/25/2025 [...] Brown M.D. 03/25/2025 8:25 AM Dictation Location: [place] [address] Electronically authenticated by: [id number] Y Date: 508:25 Dictated By: Meghana Brown M.D. Signed By:03/25/25826 DD/ 4 TD/TT: Transfill Technician: us Mackenzie Rodriguez DO CLINISYNC IMAGING Final Result * US OB CERVICAL LENGTH (03/08/2025 8:36 PM EDT) Anatomical Region Laterality Modality Other 03/08/2025 8:36 PM EDT Narrative 03/08/2025 8:38 PM EDT [address] [address] Ultrasound Report Signed Patient: VIMAL FUNES MR#: [id number] : 2000 Acct:[id number] Age/Sex: 24 / F ADM Date: 03/08/25 Loc: US Attending Dr: Mackenzie Rodriguez D.O. Ordering Physician: Mackenzie Rodriguez D.O. Date of Service: 03/08/25 Procedure(s): US OB cervical length Accession Number(s): [id number] cc: LUIS SEE ; Mackenzie Rodriguez D.O. [address] [address] Patient Name: VIMAL FUNES MRN: [id number] date: 2000 Sex: F Assigned Patient Location: US Current Patient Location: US Accession/Order Number: [id number] Exam Date: 03/08/2025 20:31 Report Date: 03/08/2025 [...] Knapp M.D. 03/08/2025 8:36 PM Dictation Location: [place] [address] Electronically authenticated by: [id number] Y Date: 03/08/2025 20:36 Dictated By: Shivam Knapp D.O. Signed By: 03/08/252037 DD/ 35 TD/TT: Transfill Technician: Procedure Note Radiology, Radiologist, MD - 03/08/2025 [place] [id number] Ultrasound Report Signed Patient: VIMAL FUNES MMR#: [id number] : 2000Acct:[id number] Age/Sex: 24 / FADM Date: 03/08/25 Loc: US Attending Dr: Mackenzie Rodriguez D.O. Ordering Physician: Mackenzie Rodriguez D.O. Date of Service: 03/08/25 Procedure(s): US OB cervical length Accession Number(s): [id number] cc: LUIS SEE ; Mackenzie Rodriguez D.O. [place] [id number] Patient Name: VIMAL FUNES MRN: [id number] date: 2000 Sex: F Assigned Patient Location: US Current Patient Location: US Accession/Order Number: [id number] Exam Date: 03/08/2025 20:31 Report Date: 03/08/2025 [...] Knapp M.D. 03/08/2025 8:36 PM Dictation [facility] Electron[facility] authenticated by: [id number] Y Date: 0:36 Dictated By: Shivam Knapp D.O. Signed By:03/08/252037 DD/ 35 TD/TT: Transfill Technician: us Mackenzie Rodriguez DO CLINISYNC IMAGING Final Result * US OB ANATOMY (03/08/2025 8:36 PM EDT) Anatomical Region Laterality Modality Other 03/08/2025 8:36 PM EDT Narrative 03/08/2025 8:38 [place] [address] Ultrasound Report Signed Patient: VIMAL FUNES MR#: [id number] : 2000 Acct:[id number] Age/Sex: 24 / F ADM Date: 03/08/25 Loc: US Attending Dr: Mackenzie Rodriguez D.O. Ordering Physician: Mackenzie Rodriguez D.O. Date of Service: 03/08/25 Procedure(s): US OB anatomy Accession Number(s): [id number] cc: LUIS SEE ; Mackenzie Rodriguez D.O. [place] [address] Patient Name: VIMAL FUNES MRN: [id number] date: 2000 Sex: F Assigned Patient Location: US Current Patient Location: US Accession/Order Number: [id number] Exam Date: 03/08/2025 20:31 Report Date: 03/08/2025 [...] Knapp M.D. 03/08/2025 8:36 PM Dictation Location: [employer] Electronically authenticated by: [id number] Y Date: 03/08/2025 20:36 Dictated By: Shivam Knapp D.O. Signed By: 03/08/252037 DD/ 35 TD/TT: Transfill Technician: Procedure Note Radiology, Radiologist, MD - 03/08/2025 [place] [address] Ultrasound Report Signed Patient: VIMAL FUNES MMR#: [id number] : 2000Acct:[id number] Age/Sex: 24 FADM Date: 03/08/25 Loc: US Attending Dr: Mackenzie Rodriguez D.O. Ordering Physician: Mackenzie Rodriguez D.O. Date of Service: 03/08/25 Procedure(s): US OB anatomy Accession Number(s): [id number] cc: LUIS SEE ; Mackenzie Rodriguez D.O. [place] [id number] Patient Name: VIMAL FUNES MRN: [id number] date: 2000 Sex: F Assigned Patient Location: US Current Patient Location: US Accession/Order Number: [id number] Exam Date: 03/08/2025 20:31 Report Date: 03/08/2025 [...] Knapp M.D. 03/08/2025 8:36 PM Dictation Location: [employer] Electronically authenticated by: [id number] Y Date: 0:36 Dictated By: Shivam Knapp D.O. Signed By:03/08/252037 DD/ 35 TD/TT: Transfill Technician: us Mackenzie Michael DO CLINISYNC IMAGING Final Result * RECURRENT VAGINITIS (HTRX) (02/20/2025 4:33 PM EDT) ATOPOBIUM VAGINAE 0.000 19.961 - 24.689 ppm 02/22/2025 6:32 AM EDT [facility] ATOPOBIUM VAGINAE Not Detected 19.961 - 24.689 ppm 02/22/2025 6:32 AM EDT [facility] BVAB 2,3 (BACTERIAL VAGINOSIS ASSOCIATED BACTERIA 2, 3); MOBILUNCUS SPP 0.000 19.961 - 24.689 ppm 02/22/2025 6:32 AM EDT [facility] BVAB 2,3 (BACTERIAL VAGINOSIS ASSOCIATED BACTERIA 2, 3); MOBILUNCUS SPP Not Detected 19.961 - 24.689 ppm 02/22/2025 6:32 AM EDT [facility] SIMEON ALBICANS, PARAPSILOSIS, TROPICALIS 0.000 19.961 - 30.770 ppm 02/22/2025 6:32 AM EDT [facility] SIMEON ALBICANS, PARAPSILOSIS, TROPICALIS Not Detected 19.961 - 30.770 ppm 02/22/2025 6:32 AM EDT [facility] SIMEON GLABRATA 0.000 23.000 - 32.138 ppm 02/22/2025 6:32 AM EDT [facility] SIMEON GLABRATA Not Detected 23.000 - 32.138 ppm 02/22/2025 6:32 AM EDT [facility] SIMEON KRUSEI 0.000 23.000 - 32.271 ppm 02/22/2025 6:32 AM EDT [facility] SIMEON KRUSEI Not Detected 23.000 - 32.271 ppm 02/22/2025 6:32 AM EDT [facility] CHLAMYDIA TRACHOMATIS 0.000 23.000 - 31.467 ppm 02/22/2025 6:32 AM EDT [facility] CHLAMYDIA TRACHOMATIS Not Detected 23.000 - 31.467 ppm 02/22/2025 6:32 AM EDT [facility] GARDNERELLA VAGINALIS 0.000 19.961 - 24.689 ppm 02/22/2025 6:32 AM EDT [facility] GARDNERELLA VAGINALIS Not Detected 19.961 - 24.689 ppm 02/22/2025 6:32 AM EDT [facility] MEGASPHAERA (TYPES 1, 2) 0.000 19.961 - 24.689 ppm 02/22/2025 6:32 AM EDT [facility] MEGASPHAERA (TYPES 1, 2) Not Detected 19.961 - 24.689 ppm 02/22/2025 6:32 AM EDT [facility] NEISSERIA GONORRHOEAE 0.000 23.000 - 32.117 ppm 02/22/2025 6:32 AM EDT [facility] NEISSERIA GONORRHOEAE Not Detected 23.000 - 32.117 ppm 02/22/2025 6:32 AM EDT [facility] TRICHOMONAS VAGINALIS 0.000 23.000 - 32.119 ppm 02/22/2025 6:32 AM EDT [facility] TRICHOMONAS VAGINALIS Not Detected 23.000 - 32.119 ppm 02/22/2025 6:32 AM EDT [facility] MYCOPLASMA GENITALIUM 0.000 19.961 - 24.689 ppm 02/22/2025 6:32 AM EDT [facility] MYCOPLASMA GENITALIUM Not Detected 19.961 - 24.689 ppm 02/22/2025 6:32 AM EDT [facility] Tissue 02/20/2025 4:33 PM EDT 02/22/2025 1:53 AM EDT us Rossana BISWAS LAB BLOOD ORDERABLES Final Resul t [facility] [address] [place] [address] * URINARY TRACT INFECTION (HTRX) (02/20/2025 4:30 PM EDT) Pathologist [facility] ACINETOBACTER BAUMANII 0.000 19.961 - 24.689 ppm 02/22/2025 6:52 AM EDT [facility] ACINETOBACTER BAUMANII Not Detected 19.961 - 24.689 ppm 02/22/2025 6:52 AM EDT [facility] CITROBACTER FREUNDII 0.000 23.000 - 31.881 ppm 02/22/2025 6:52 AM EDT [facility] CITROBACTER FREUNDII Not Detected 23.000 - 31.881 ppm 02/22/2025 6:52 AM EDT [facility] ENTEROBACTER AEROGENES, CLOACAE 0.000 23.000 - 31.535 ppm 02/22/2025 6:52 AM EDT [facility] ENTEROBACTER AEROGENES, CLOACAE Not Detected 23.000 - 31.535 ppm 02/22/2025 6:52 AM EDT [facility] ENTEROCOCCUS FAECALIS, FAECIUM 0.000 26.000 - 31.575 ppm 02/22/2025 6:52 AM EDT [facility] ENTEROCOCCUS FAECALIS, FAECIUM Not Detected 26.000 - 31.575 ppm 02/22/2025 6:52 AM EDT [facility] ESCHERICHIA COLI 0.000 23.000 - 28.500 ppm 02/22/2025 6:52 AM EDT [facility] ESCHERICHIA COLI Not Detected 23.000 - 28.500 ppm 02/22/2025 6:52 AM EDT [facility] KLEBSIELLA PNEUMONIAE, OXYTOCA 0.000 23.000 - 30.500 ppm 02/22/2025 6:52 AM EDT [facility] KLEBSIELLA PNEUMONIAE, OXYTOCA Not Detected 23.000 - 30.500 ppm 02/22/2025 6:52 AM EDT [facility] MORGANELLA MORGANII 0.000 19.961 - 24.689 ppm 02/22/2025 6:52 AM EDT [facility] MORGANELLA MORGANII Not Detected 19.961 - 24.689 ppm 02/22/2025 6:52 AM EDT [facility] PROTEUS MIRABILIS, VULGARIS 0.000 23.000 - 28.500 ppm 02/22/2025 6:52 AM EDT [facility] PROTEUS MIRABILIS, VULGARIS Not Detected 23.000 - 28.500 ppm 02/22/2025 6:52 AM EDT [facility] PSEUDOMONAS AERUGINOSA 0.000 23.000 - 28.500 ppm 02/22/2025 6:52 AM EDT [facility] [place] PSEUDOMONAS AERUGINOSA Not Detected 23.000 - 28.500 ppm 02/22/2025 6:52 AM EDT [facility] [place] STAPHYLOCOCCUS AUREUS 0.000 26.000 - 30.902 ppm 02/22/2025 6:52 AM EDT [facility] [place] STAPHYLOCOCCUS AUREUS Not Detected 26.000 - 30.902 ppm 02/22/2025 6:52 AM EDT [facility] [place] STREPTOCOCCUS AGALACTIAE (GROUP B STREP) 0.000 26.000 - 32.222 ppm 02/22/2025 6:52 AM EDT [facility] [place] STREPTOCOCCUS AGALACTIAE (GROUP B STREP) Not Detected 26.000 - 32.222 ppm 02/22/2025 6:52 AM EDT [facility] [place] SIMEON ALBICANS, PARAPSILOSIS, TROPICALIS 0.000 19.961 - 30.770 ppm 02/22/2025 6:52 AM EDT [facility] SIMEON ALBICANS, PARAPSILOSIS, TROPICALIS Not Detected 19.961 - 30.770 ppm 02/22/2025 6:52 AM EDT [facility] SIMEON GLABRATA 0.000 23.000 - 32.138 ppm 02/22/2025 6:52 AM EDT [facility] SIMEON GLABRATA Not Detected 23.000 - 32.138 ppm 02/22/2025 6:52 AM EDT [facility] SIMEON KRUSEI 0.000 23.000 - 32.271 ppm 02/22/2025 6:52 AM EDT [facility] SIMEON KRUSEI Not Detected 23.000 - 32.271 ppm 02/22/2025 6:52 AM EDT [facility] SERRATIA MARCESCENS 0.000 23.000 - 31.204 ppm 02/22/2025 6:52 AM EDT [facility] SERRATIA MARCESCENS Not Detected 23.000 - 31.204 ppm 02/22/2025 6:52 AM EDT [facility] STREPTOCOCCUS PYOGENES (GROUP A STREP) 0.000 19.961 - 24.689 ppm 02/22/2025 6:52 AM EDT [facility] STREPTOCOCCUS PYOGENES (GROUP A STREP) Not Detected 19.961 - 24.689 ppm 02/22/2025 6:52 AM EDT [facility] STAPHYLOCOCCUS EPIDERMIDIS, HAEMOLYTICUS, LUGDUNENSIS, SAPROPHYTICUS (URINA 0.000 19.961 - 24.689 ppm 02/22/2025 6:52 AM EDT [facility] STAPHYLOCOCCUS EPIDERMIDIS, HAEMOLYTICUS, LUGDUNENSIS, SAPROPHYTICUS (URINA Not Detected 19.961 - 24.689 ppm 02/22/2025 6:52 AM EDT [facility] STAPHYLOCOCCUS EPIDERMIDIS, HAEMOLYTICUS, LUGDUNENSIS, SAPROPHYTICUS (URINA 0.000 19.961 - 24.689 ppm 02/22/2025 6:52 AM EDT [facility] STAPHYLOCOCCUS EPIDERMIDIS, HAEMOLYTICUS, LUGDUNENSIS, SAPROPHYTICUS (URINA Not Detected 19.961 - 24.689 ppm 02/22/2025 6:52 AM EDT [facility] Urine 02/20/2025 4:30 PM EDT 02/22/2025 1:52 AM EDT us Rossana BISWAS LAB BLOOD ORDERABLES Final Resul t [facility] [address] [place] [address] * IGP,APTIMA HPV,AGE GDLN (02/20/2025 3:50 PM EDT) AGE GDLN ACOG TESTING Note . [facility] Comment: TESTS RESULT FLAG UNITS REF RANGE LAB Clinician Provided Cytology Information Source.............Endocervix No. of containers..01 ThinPrep Vial Age Algo ACOG Yris... -24 10 FLAG LEGEND: L-Low Normal,H-High Normal,LL-Alert Low,HH-Alert High <-Panic Low,>-Panic High,A-Abnormal,AA-Critical Abnormal Performed at: 01 =G [facility] [address] [place] [address] Jenise Byrne MD, IGP, RFX APTIMA HPV ASCU Note . [facility] Comment: TESTS RESULT FLAG UNITS REF RANGE LAB DIAGNOSIS: 02 NEGATIVE FOR INTRAEPITHELIAL LESION OR MALIGNANCY. Specimen adequacy: 02 Satisfactory for evaluation. Endocervical and/or squamous metaplastic cells (endocervical component) are present. Performed by: Hussein Alvarez, Security Director ([facility]) . 02 Note: Note 02 [...] <-Panic Low,>-Panic High,A-Abnormal,AA-Critical Abnormal Performed at: [address] [address] Jenise Byrne MD, Performed at: = - [facility] [address] [id number] Digester Cook: Jenise Byrne MD, Phone: [phone] Performed at: [facility] [address] [id number] Digester Cook: Jenise Byrne MD, Phone: [phone] 02/20/2025 3:50 PM EDT 02/20/2025 9:13 PM EDT Narrative [facility] - 02/23/2025 1:08 PM EDT [facility] Rossana BISAWS LAB BLOOD ORDERABLES Final Resul t Performing Organization Address [facility] Co de Phone Number [facility] * Pap Smear (02/20/2025 12:00 AM EDT) Swab Cervical swab / Unknown Rossana BISWAS LAB CYTOLOGY ORDERABLES Final Re sult Performing Organization Address [facility] Co de Phone Number EXTERNAL LAB from Last 3 Months Insurance [facility] [employer] Care Teams Insurance Processor Relationship Specialty Start Date End Date Unallocated, Noms Provider, [address] [place], [place] [phone] PCP - General Family Medicine 08/03/24
[2025-05-11 11:25] VITALS: BP 148/92; PULSE 82
[2025-05-11 11:27] VITALS: BP 138/81; PULSE 71
[2025-05-11 11:43] VITALS: BP 128/75; PULSE 80
[2025-05-11 11:58] VITALS: BP 122/73; PULSE 67
--- NOTE | 2025-05-11 12:08 | PC.NURSE ---
1115- Pt reports a decrease in pain level at this time. 1145-pt reports pain is better at this time compared to last pain assessment. Pt states she is comfortable going home at this time. 1150- discharge instructions at this time. Pt voices understanding of instructions. 1155- pt discharged.
== END 2025-05-11 12:53 | disposition home or self-care (01) ==
LOC: US 10:57 → FBC 10:59
PROVIDERS: PCP Nurse Practitioner Family; Visit Provider Physician Assistant
DX: O24.419 Gestational diabetes mellitus in pregnancy, unspecified control (principal); Z3A.29 29 weeks gestation of pregnancy
CPT/HCPCS: 76818

== ENCOUNTER 2025-05-15 16:58 | Outpatient (OUT) | payer BC, OTHER, SELFPAY ==
[2025-05-15 17:06] VITALS: BP 126/69; PULSE 74
== END 2025-05-15 17:15 | disposition home or self-care (01) ==
LOC: FBCO 16:58 → FBC 17:05
PROVIDERS: PCP Nurse Practitioner Family; Visit Provider Obstetrics & Gynecology
DX: O24.419 Gestational diabetes mellitus in pregnancy, unspecified control (principal)
CPT/HCPCS: 59025

== ENCOUNTER 2025-05-18 10:44 | Outpatient (OUT) | payer BC, OTHER, SELFPAY ==
--- OUTSIDE RECORDS SUMMARY | 2025-05-18 10:49 | XMS_ITS | CCD ---
Author Organization [facility] Care Team Providers Care Press Brake Operator Name Role Phone MICHAEL ., DR [...] Unavailable MISC, DR DOMINIQUE Primary Care Unavailable PALO ALTO, DR COCO Danielle Consulting Unavailable MICHAEL ., DR MANN Consulting Unavailable MICHAEL ., DR MANN Admitting Unavailable MICHAEL ., DR MANN Attending Unavailable MISC, DR DOMINIQUE Primary Care Unavailable MICHAEL ., DR MANN Consulting Unavailable MICHAEL ., DR MANN Admitting Unavailable MICHAEL ., DR MANN Attending Unavailable MISC, DR DOMINIQUE Primary Care Unavailable PALO ALTO, DR COCO Danielle Consulting Unavailable MICHAEL ., DR MANN Consulting Unavailable MIHCAEL ., DR MANN Admitting Unavailable MICHAEL ., [...] Jose Attending Unavailable Michael, Jose Admitting Unavailable Unavailable Primary Care Provider UnavailXENIA Marquez Attending Unavailable JOSE RODRIGUEZ Referring Unavailable MICHAEL, JOSE Attending Unavailable ROSSANA RAMOS Attending Unavailable MICHAEL, JOSE Attending Unavailable ROSSANA RAMOS Attending Unavailable ROSSANA RAMOS Attending Unavailable ROSSANA RAMOS Attending Unavailable MICHAEL, JOSE Attending Unavailable MICHAEL, JOSE Attending Unavailable ROSSANA RAMOS Attending Unavailable Medications Current Medications Medication Drug [...] Glucose Monitoring Suppl (D-Care Glucometer) w/Device kit (5 sources) Start: 05-08-2025 End: 05-08-2026 Blood Glucose Monitoring Suppl (D-Care Glucometer) w/Device kit Indications: Gestational diabetes mellitus (GDM), antepartum, gestational diabetes method of control unspecified ([facility]) , Elevated glucose tolerance test 1 kit Daily Use four times daily to check FSBS. In the morning prior to breakfast & 1 hour after each meal for a total of 4times daily. 1 kit 05/08/2025 05/08/2026 Active isopropyl alcohol 0.7 ml/ml medicated pad (5 sources) Start: 05-08-2025 Alcohol Swabs (Alcohol Prep Pad) [...] source) Active 115/iron/folic acid ( 19 ORAL) (2 sources) 115/iron/folic acid ( 19 ORAL) Take by mouth. Active progesterone 100 mg vaginal insert (20 sources) Progesterone progesterone (Endometrin) 100 MG vaginal insert Insert 100 mg into the vagina in the morning and 100 mg before bedtime. Active take 1 capsule by mouth at bedti me progesterone (PROMETRIUM) 100 mg capsule Take 1 capsule (100 mg total) by mouth in the morning and at bedtime. Active Progesterone 200 MG supposit ory [...] tolerance complicating ; childbirth; or the puerperium (13 sources) Gestational diabetes mellitus in childbirth, unspecified [...] Hypertension complicating ; childbirth and the puerperium (6 sources) -induced hypertension; Translations: [Gestational [-induced] hypertension [...] [27 weeks gestation of ] 04-25-2025 Episodic Residual codes; unclassified (2 sources) Gestation period, 30 weeks; Translations: [30 weeks gestation of ] 05-14-2025 Episodic Spontaneous (2 sources) Miscarriage; Translations: [Complete or unspecified spontaneous without complication] 08-06-2024 Episodic Unclassified (1 source) CONTACT W/AND (SUSP) EXPOS COVID-19; Translations: [CONTACT W/AND (SUSP) EXPOS COVID-19] Onset: 08-25-2022 Unclassified (3 sources) OTH SPCF DIS/COND COMPL ; Translations: [OTH SPCF DIS/COND COMPL ] Onset: 05-01-2022 Unclassified (1 source) Gestational Diabetes Onset: 05-13-2025 Past or Other Problems Problem Classification Problem [...] Test Name Value Interpretation Reference Range Facility Glucose random or fasting- P OCTOrdered By: Sheridan Smallwood on 05-13-2025 External Glucose Fasting Or Random (Fbs) 80 [facility] OB BPP W NON-STRESS on 05-11-[address] [address] Ultrasound Report Signed Patient: VIMAL FUNES MR#: [id number] : 2000 Acct:[id number] Age/Sex: 25 / F ADM Date: 05/11/25 Loc: [facility] 253-[address]: Rossana Ramos Ordering Physician: Rossana Rachel Date of Service: 05/11/25 Procedure(s): US OB BPP w non-stress Accession Number(s): [id number] cc: JENNIFER Watkins The [place] [address] Patient Name: VIMAL FUNES MRN: [facility]:[id number] date: 2000 Sex: F Assigned Patient Location: [facility] Current Patient Location: [facility] Accession/Order Number: [id number] Exam Date: 05/11/2025 12:01 Report Date: 05/11/2025 12:02 At the request of: ROSSANA RAMOS Procedure: US OB BPP w non-stress Biophysical profile. Reason for exam: Gestational diabetes COMPARISON: 05/04/2025 TECHNIQUE: Transabdominal imaging of the gravid uterus was obtained. FINDINGS: The home organizer reports a BPP of 8 out of 8. DANYA is normal at 11.9 cm. heart rate 138 bpm. US/US OB BPP w non-stress IMPRESSION: BPP 8 out of 8. Impression dictated by: Bulmaro Arias Jr., D.O. 05/11/2025 12:02 PM Dictation Location: [place] [address] Electronically authenticated by: [id number] Y Date: 05/11/2025 12:02 Dictated By: Bulmaro Arias M.D. Signed By: 05/11/25 1204 DD/ 1202 TD/TT: Front End Loader Operator: [facility] Radiology, Radiologist, MD - 05/11/2025 [place] [address] Ultrasound Report Signed Patient: VIMAL FUNES MR#: [id number] : 2000 Acct:[id number] Age/Sex: 25 / F ADM Date: 05/11/25 Loc: [facility] 253-[address]: Rossana Ramos Ordering Physician: Rossana Ramos Date of Service: 05/11/25 Procedure(s): US OB BPP w non-stress Accession Number(s): [id number] cc: Rossana SEE,JENNIFER [place] [address] Patient Name: VIMAL FUNES MRN: [facility]:[id number] date: 2000 Sex: F Assigned Patient Location: [facility] Current Patient Location: [facility] Accession/Order Number: [id number] Exam Date: 05/11/2025 12:01 Report Date: 05/11/2025 12:02 At the request of: ROSSANA RAMOS Procedure: US OB BPP w non-stress Biophysical profile. Reason for exam: Gestational diabetes COMPARISON: 05/04/2025 TECHNIQUE: Transabdominal imaging of the gravid uterus was obtained. FINDINGS: The home organizer reports a BPP of 8 out of 8. DANYA is normal at 11.9 cm. heart rate 138 bpm. US/US OB BPP w non-stress IMPRESSION: BPP 8 out of 8. Impression dictated by: Bulmaro Arias Jr., D.O. 05/11/2025 12:02 PM Dictation Location[facility] Electronically authenticated by: [id number] Y Date: 05/11/2025 12:02 Dictated By: Bulmaro Arias M.D. Signed By: 05/11/25 1204 DD/ 1202 TD/TT: Front End Loader Operator: [facility] [employer] Radiology Study observation (narrative) [facility] [employer] US OB BPP W NON-STRESS Ordered By: Radiologist Radiology on 05-11-2025 [facility] [employer] Work Phone: [facility]H TOTAL PROTEIN 24 HOUR UR INEon 05-06-2025 TOTAL PROTEIN URINE RANDOM <6.0 NINF - 11.9 mg/dL [facility] [employer] TOTAL VOLUME 24 HOUR URINE 3700 mL/24hr [facility] [employer] 2nd hr Glucose Tolerance 100 gm loadon 05-04-2025 Glucose Tolerance Test 2 Hour [address] [facility] ALL CBC WITH AUTO DIFFon BASOPHILS ABSOLUTE AUTO 0 [facility] [employer] Basophils/100 WBC (Bld) 0.2 % 0.2 - 2.0 % [facility] [employer] Eosinophils/100 WBC (Bld) 2.6 % 0.9 - 7.0 % [facility] Erythrocyte distribution width (RBC) [Ratio] 12.7 % 11.0 - 15.0 % [facility] Hematocrit (Bld) [Volume fraction] 39.5 % 36.0 - 48.0 % [facility] Hemoglobin (Bld) [Mass/Vol] 13.7 g/dL 12.0 - 16.0 g/dL [facility] IMMATURE GRANULOCYTES ABS AUTO 0.05 High [facility] Immature granulocytes/100 WBC (Bld) 0.4 % 0.0 - 0.5 % [facility] Interpretation and review of laboratory results Abnormal [facility] LYMPHOCYTES ABSOLUTE AUTO 1.6 [facility] Lymphocytes/100 WBC (Bld) 12.6 % Low 20.5 - 60.0 % [facility] MCH (RBC) [Entitic mass] 31.9 pg 26.7 - 34.0 pg [facility] MCHC (RBC) [Mass/Vol] 34.7 g/dL 29.9 - 35.2 g/dL [facility] MCV (RBC) [Entitic vol] 92.1 fL 81.0 - 99.0 fL [facility] MONOCYTES ABSOLUTE AUTO 0.6 [facility] Monocytes/100 WBC (Bld) 5 % 1.7 - 12.0 % [facility] NEUTROPHILS ABSOLUTE AUTO 9.9 High [facility] Neutrophils/100 WBC (Bld) 79.2 % High 43.0 - 75.0 % [facility] Platelet mean volume (Bld) [Entitic vol] 11 fL 9.5 - 13.5 fL [facility] TBH EO # 0.3 [facility] TB PLT 226 [facility] TB RBC 4.29 [facility] TB WBC 12.5 High [facility] CLIN[facility] Glucose tolerance, 1 houron 05-04-2025 Glucose Tolerance Test 1 Hour 234 [facility] Glucose tolerance, 3 hourson 05-04-2025 Glucose Tolerance Test 3 Hour 133 [employer] [facility] Glucose, tolerance fastingon 05-04-2025 Glucose Tolerance Test Fasting 108 [facility] No Panel Informationon 05-04 [facility] [employer] US OB BPP W NON-STRESS on 05-04-[address] [address] Ultrasound Report Signed Patient: VIMAL FUNES MR#: [id number] : 2000 Acct:[id number] Age/Sex: 25 / F ADM Date: 05/04/25 Loc: [facility] 250-[address]: Rossana Ramos Ordering Physician: Rossana Ramos Date of Service: 05/04/25 Procedure(s): US OB BPP w non-stress Accession Number(s): [id number] cc: Rossana Ramos; JENNIFER SEE [place] [address] Patient Name: VIMAL FUNES MRN: [facility]:[id number] date: 2000 Sex: F Assigned Patient Location: [facility] Current Patient Location: [facility] Accession/Order Number: [id number] Exam Date: 05/04/2025 12:08 Report Date: 05/04/2025 12:09 At the request of: ROSSANA RAMOS Procedure: US OB BPP w non-stress Biophysical profile. Reason for exam: Gestational diabetes COMPARISON: None TECHNIQUE: Transabdominal imaging of the gravid uterus was obtained. FINDINGS: The home organizer reports a BPP of 8 out of 8. DANYA is normal at 12.4 cm. heart rate 150 bpm. US/US OB BPP w non-stress IMPRESSION: BPP 8 out of 8. Impression dictated by: Bulmaro Arias Jr., D.O. 05/04/2025 12:09 PM Dictation Location: [place] [address] Electronically authenticated by: [id number] Y Date: 05/04/2025 12:09 Dictated By: Bulmaro Arias M.D. Signed By: 05/04/25 1212 DD/ 1209 TD/TT: Front End Loader Operator: [facility] Radiology, Radiologist, MD - 05/04/2025 [place] [address] Ultrasound Report Signed Patient: VIMAL FUNES MR#: [id number] : 2000 Acct:[id number] Age/Sex: 25 / F ADM Date: 05/04/25 Loc: [facility] 250-[address]: Rossana Ramos Ordering Physician: Rossana Ramos Date of Service: 05/04/25 Procedure(s): US OB BPP w non-stress Accession Number(s): [id number] cc: Rossana Ramos; JENNIFER SEE [place] [id number] Patient Name: VIMAL FUNES MRN: [id number] date: 2000 Sex: F Assigned Patient Location: [facility] Current Patient Location: [facility] Accession/Order Number: [id number] Exam Date: 05/04/2025 12:08 Report Date: 05/04/2025 12:09 At the request of: ROSSANA RAMOS Procedure: US OB BPP w non-stress Biophysical profile. Reason for exam: Gestational diabetes COMPARISON: None TECHNIQUE: Transabdominal imaging of the gravid uterus was obtained. FINDINGS: The home organizer reports a BPP of 8 out of 8. DANYA is normal at 12.4 cm. heart rate 150 bpm. US/US OB BPP w non-stress IMPRESSION: BPP 8 out of 8. Impression dictated by: Bulmaro Arias Jr., D.O. 05/04/2025 12:09 PM Dictation Location: [place] [address] Electronically authenticated by: [id number] Y Date: 05/04/2025 12:09 Dictated By: Bulmaro Arias M.D. Signed By: 05/04/25 1212 DD/ 1209 TD/TT: Front End Loader Operator: [facility] [employer] Radiology Study observation (narrative) [facility] US OB BPP W NON-STRESS Ordered By: Radiologist Radiology on 05-04-2025 [facility] [employer] Work Phone: US OB GROWTHon 05-04-[address] [address] Ultrasound Report Signed Patient: VIMAL FUNES MR#: [id number] : 2000 Acct:[id number] Age/Sex: 25 / F ADM Date: 05/04/25 Loc: [facility] 250-[address]: Rossana Ramos Ordering Physician: Rossana Ramos Date of Service: 05/04/25 Procedure(s): US OB growth Accession Number(s): [id number] cc: Rossana Ramos; JENNIFER SEE The [address] [address] Patient Name: VIMAL FUNES MRN: [facility]:[id number] date: 2000 Sex: F Assigned Patient Location: [facility] Current Patient Location: [facility] Accession/Order Number: [id number] Exam Date: 05/04/2025 12:06 Report Date: 05/04/2025 12:08 At the request of: ROSSANA RAMOS Procedure: US OB growth Growth ultrasound. Reason [...] Jr., D.O. 05/04/2025 12:08 PM [facility]ictation [facility] Electron[facility] authenticated by: [id number] Y Date: 05/04/2025 12:08 Dictated By: Bulmaro Arias M.D. Signed By: 05/04/25 1211 DD/ 1208 TD/TT: Front End Loader Operator: [facility] Radiology, Radiologist, MD - 05/04/[address] [address] Ultrasound Report Signed Patient: VIMAL FUNES MR#: [id number] : 2000 Acct:[id number] Age/Sex: 25 / F ADM Date: 05/04/25 Loc: [facility] 250-[address]: Rossana Ramos Ordering Physician: Rossana Ramos Date of Service: 05/04/25 Procedure(s): US OB growth Accession Number(s): [id number] cc: Rossana Ramos; JENNIFER SEE [place] [id number] Patient Name: VIMAL FUNES MRN: [id number] date: 2000 Sex: F Assigned Patient Location: [facility] Current Patient Location: [facility] Accession/Order Number: [id number] Exam Date: 05/04/2025 12:06 Report Date: 05/04/2025 12:08 At the request of: ROSSANA RAMOS Procedure: US OB growth Growth ultrasound. Reason [...] Jr., D.O. 05/04/2025 12:08 PM Dictation Location: [place] [address] Electronically authenticated by: [id number] Y Date: 05/04/2025 12:08 Dictated By: Bulmaro Arias M.D. Signed By: 05/04/25 1211 DD/ 1208 TD/TT: Front End Loader Operator: [facility] [employer] Radiology Study observation (narrative) [facility] US OB GROWTHOrdered By: Jeimy zayas Radiology on 05-04-2025 [facility] [employer] Work Phone: Urinalysis macro (dipstick) panel (U)on 04-30-2025 Bilirubin, UA Negative Negative - 4(70) +++ mg/dL [facility] Blood, UA Negative Negative - 50 Jason/mcL [facility] Clarity, UA Clear [facility] [employer] re Color, UA Yellow [facility] Glucose, UA Positive Negative - 2000(110) ++++ mg/dL [facility] Interpretation and review of laboratory results Abnormal [facility] Ketones, UA Negative Negative - 160(16) ++++ mg/dL [facility] Leukocytes, UA Positive Negative - 500+++ Carlos/mcL [facility] Nitrite, UA Negative Negative - Positive [facility] pH, UA 6 5 - 9 [facility] Protein, UA Negative Negative - 1999(20) ++++ mg/dL [facility] Spec Grav, UA 1.01 1 - 1.03 [facility] Urobilinogen, UA 1.0 0.2 - 12 mg/dL [facility] ALL CBC WITH AUTO DIFFon BASOPHILS ABSOLUTE AUTO 0 [facility] Basophils/100 WBC (Bld) 0.2 % 0.2 - 2.0 % [facility] Eosinophils/100 WBC (Bld) 2.2 % 0.9 - 7.0 % [facility] Erythrocyte distribution width (RBC) [Ratio] 12.9 % 11.0 - 15.0 % [facility] Hematocrit (Bld) [Volume fraction] 40 % 36.0 - 48.0 % [facility] Hemoglobin (Bld) [Mass/Vol] 13.6 g/dL 12.0 - 16.0 g/dL [facility] IMMATURE GRANULOCYTES ABS AUTO 0.04 High [facility] Immature granulocytes/100 WBC (Bld) 0.3 % 0.0 - 0.5 % [facility] Interpretation and review of laboratory results Abnormal [facility] LYMPHOCYTES ABSOLUTE AUTO 1.4 [facility] Lymphocytes/100 WBC (Bld) 10.8 % Low 20.5 - 60.0 % [facility] MCH (RBC) [Entitic mass] 31.7 pg 26.7 - 34.0 pg [facility] MCHC (RBC) [Mass/Vol] 34 g/dL 29.9 - 35.2 g/dL [facility] MCV (RBC) [Entitic vol] 93.2 fL 81.0 - 99.0 fL [facility] MONOCYTES ABSOLUTE AUTO 0.5 [facility] Monocytes/100 WBC (Bld) 4.3 % 1.7 - 12.0 % [facility] NEUTROPHILS ABSOLUTE AUTO 10.2 High [facility] Neutrophils/100 WBC (Bld) 82.2 % High 43.0 - 75.0 % [facility] Platelet mean volume (Bld) [Entitic vol] 10.6 fL 9.5 - 13.5 fL [facility] TBH EO # 0.3 [facility] TBH PLT 202 [facility] TB RBC 4.29 [facility] TB WBC 12.5 High [facility] Glucose 1h post 50g loadon 0 04-27-2025 Glucose, 1 hr PP 50GM dose 171 [facility] No Panel Informationon 04-27 [facility] Urinalysis macro (dipstick) panel (U)on 04-25-2025 Bilirubin, UA Negative Negative - 4(70) +++ mg/dL [facility] Blood, UA Negative Negative - 50 Jason/mcL [facility] Healthcare Clarity, UA Clear [facility] Color, UA Yellow [facility] Glucose, UA Negative Negative - 1999(110) ++++ mg/dL [facility] Interpretation and review of laboratory results Normal [facility] Ketones, UA Negative Negative - 160(16) ++++ mg/dL [facility] Leukocytes, UA Negative Negative - 500+++ Carlos/mcL [facility] Healthcare Nitrite, UA Negative Negative - Positive [facility] pH, UA 6.5 5 - 9 [facility] Protein, UA Negative Negative - 1999(20) ++++ mg/dL [facility] Spec Grav, UA 1.01 1 - 1.03 [facility] Urobilinogen, UA 0.2 0.2 - 12 [facility]dL [facility] Urinalysis macro (dipstick) panel (U)on 04-11-2025 Bilirubin, UA Negative Negative - 4(70) +++ mg/dL [facility] Blood, UA Negative Negative - 50 Jason/mcL [facility] Healthcare Clarity, UA Clear [facility] Color, UA Yellow [facility] Glucose, UA Negative Negative - 1999(110) ++++ mg/dL [facility] Interpretation and review of laboratory results Normal [facility] Ketones, UA Negative Negative - 160(16) ++++ mg/dL [facility] Leukocytes, UA Negative Negative - 500+++ Carlos/mcL [facility] Healthcare Nitrite, UA Negative Negative - Positive [facility] pH, UA 7 5 - 9 [facility] Protein, UA Negative Negative - 1999(20) ++++ mg/dL [facility] Spec Grav, UA 1.005 1 - 1.03 [facility] care Urobilinogen, UA 1.0 0.2 - 12 mg/dL [facility] US OB INCOMPLETE ANATOMYon 0 03-25-2025 [place] [address] Ultrasound Report Signed Patient: VIMAL FUNES MR#: [id number] : 2000 Acct:[id number] Age/Sex: 24 / F ADM Date: 03/23/25 Loc: US Attending Dr: Jose Rodriguez D.O. Ordering Physician: Jose Rodriguez D.O. Date of Service: 03/23/25 Procedure(s): US OB incomplete anatomy Accession Number(s): [id number] cc: JENNIFER SEE ; Jose Rodriguez D.O. [place] [id number] Patient Name: VIMAL FUNES MRN: [id number] date: 2000 Sex: F Assigned Patient Location: US Current Patient Location: US Accession/Order Number: [id number] Exam Date: 03/25/2025 08:23 Report Date: 03/25/2025 [...] Brown M.D. 03/25/2025 8:25 AM Dictation Location: [place] [address] Electronically authenticated by: [id number] Y Date: 03/25/2025 08:25 Dictated By: Meghana Brown M.D. Signed By: 03/25/25826 DD/ 4 TD/TT: Front End Loader Operator: [facility] Radiology, Radiologist, - 03/25/2025 [place] [address] Ultrasound Report Signed Patient: VIMAL FUNES MR#: [id number] : 2000 Acct:[id number] Age/Sex: 24 / F ADM Date: 03/23/25 Loc: US Attending Dr: Jose Rodriguez D.O. Ordering Physician: Jose Rodriguez D.O. Date of Service: 03/23/25 Procedure(s): US OB incomplete anatomy Accession Number(s): [id number] cc: JENNIFER SEE ; Jose Rodriguez D.O. The [place] [address] Patient Name: VIMAL FUNES MRN: [facility]:[id number] date: 2000 Sex: F Assigned Patient Location: US Current Patient Location: US Accession/Order Number: [id number] Exam Date: 03/25/2025 08:23 Report Date: 03/25/2025 [...] Brown M.D. 03/25/2025 8:25 AM Dictation Location: [place] [address] Electronically authenticated by: [id number] Y Date: 03/25/2025 08:25 Dictated By: Meghana Brown M.D. Signed By: 03/25/25826 DD/ 4 TD/TT: Front End Loader Operator: [facility] Radiology Study observation (narrative) [facility] US OB INCOMPLETE ANATOMYOrde red By: Radiologist Radiology on 03-25-2025 [facility] [employer] Work Phone: Urinalysis macro (dipstick) panel (U)on 03-14-2025 Bilirubin, UA Negative Negative - 4(70) +++ mg/dL [facility] Blood, UA Negative Negative - 50 Jason/mcL [facility] Clarity, UA [facility] re Color, UA Yellow [facility] e Glucose, UA Negative Negative - 2000(110) ++++ mg/dL [facility] Interpretation and review of laboratory results Normal [facility] Ketones, UA Negative Negative - 160(16) ++++ mg/dL [facility] Leukocytes, UA Negative Negative - 500+++ Carlos/mcL [facility] Nitrite, UA Negative Negative - Positive [facility] pH, UA 7 5 - 9 [facility] Protein, UA Negative Negative - 1999(20) ++++ mg/dL [facility] Spec Grav, UA 1.01 1 - 1.03 [facility] Urobilinogen, UA 0.2 0.2 - 12 mg/dL [facility] No Panel InformationOrdered By: Radiologist Radiology on 03-08-2025 [facility] [employer] Work Phone: No Panel Informationon 03-08 Radiology Study observation (narrative) [facility] US OB ANATOMYon 03-08-2025 [place] [address] Ultrasound Report Signed Patient: VIMAL FUNES MR#: [id number] : 2000 Acct:[id number] Age/Sex: 24 / F ADM Date: 03/08/25 Loc: US Attending Dr: Jose Rodriguez D.O. Ordering Physician: Jose Rodriguez D.O. Date of Service: 03/08/25 Procedure(s): US OB anatomy Accession Number(s): [id number] cc: JENNIFER SEE ; Jose Rodriguez D.O. The [place] [id number] Patient Name: VIMAL FUNES MRN: [facility]:[id number] date: 2000 Sex: F Assigned Patient Location: US Current Patient Location: US Accession/Order Number: [id number] Exam Date: 03/08/2025 20:31 Report Date: 03/08/2025 [...] Knapp M.D. 03/08/2025 8:36 PM Dictation Location[facility] Electronically authenticated by: [id number] Y Date: 03/08/2025 20:36 Dictated By: Shivam Knapp D.O. Signed By: 03/08/252037 DD/ 35 TD/TT: Front End Loader Operator: [facility] Radiology, Radiologist, MD - 03/08/2025 The [place] [id number] Ultrasound Report Signed Patient: VIMAL FUNES MR#: [id number] : 2000 Acct:[id number] Age/Sex: 24 / F ADM Date: 03/08/25 Loc: US Attending Dr: Jose Rodriguez D.O. Ordering Physician: Jose Rodriguez D.O. Date of Service: 03/08/25 Procedure(s): US OB anatomy Accession Number(s): [id number] cc: JENNIFER SEE ; Jose Rodriguez D.O. [place] [address] Patient Name: VIMAL FUNES MRN: [id number] date: 2000 Sex: F Assigned Patient Location: US Current Patient Location: US Accession/Order Number: [id number] Exam Date: 03/08/2025 20:31 Report Date: 03/08/2025 [...] Knapp M.D. 03/08/2025 8:36 PM Dictation Location: [facility] Electronically authenticated by: [id number] Y Date: 03/08/2025 20:36 Dictated By: Shivam Knapp D.O. Signed By: 03/08/252037 DD/ 35 TD/TT: Front End Loader Operator: ARJUN Martinez OB CERVICAL LENGTHon 02-24 [place] [address] Ultrasound Report Signed Patient: VIMAL FUNES MR#: [id number] : 2000 Acct:[id number] Age/Sex: 24 / F ADM Date: 03/08/25 Loc: US Attending Dr: Jose Rodriguez D.O. Ordering Physician: Jose Rodriguez D.O. Date of Service: 03/08/25 Procedure(s): US OB cervical length Accession Number(s): [id number] cc: JENNIFER SEE ; Jose Rodriguez D.O. [place] [address] Patient Name: VIMAL FUNES MRN: [id number] date: 2000 Sex: F Assigned Patient Location: US Current Patient Location: US Accession/Order Number: [id number] Exam Date: 03/08/2025 20:31 Report Date: 03/08/2025 [...] Knapp M.D. 03/08/2025 8:36 PM Dictation Location: [place] [address] Electronically authenticated by: [id number] Y Date: 03/08/2025 20:36 Dictated By: Shivam Knapp D.O. Signed By: 03/08/252037 DD/ 35 TD/TT: Front End Loader Operator: [facility] Radiology, Radiologist, MD - 03/08/2025 [place] [address] Ultrasound Report Signed Patient: VIMAL FUNES MR#: [id number] : 2000 Acct:[id number] Age/Sex: 24 / F ADM Date: 03/08/25 Loc: US Attending Dr: Jose Rodriguez D.O. Ordering Physician: Jose Rodriguez D.O. Date of Service: 03/08/25 Procedure(s): US OB cervical length Accession Number(s): [id number] cc: JENNIFER SEE ; Jose Rodriguez D.O. The [place] [id number] Patient Name: VIMAL FUNES MRN: [facility]:[id number] date: 2000 Sex: F Assigned Patient Location: US Current Patient Location: US Accession/Order Number: [id number] Exam Date: 03/08/2025 20:31 Report Date: 03/08/2025 [...] Knapp M.D. 03/08/2025 8:36 PM Dictation Location: [facility] Electronically authenticated by: [id number] Y Date: 03/08/2025 20:36 Dictated By: Shivam Knapp D.O. Signed By: 03/08/252037 DD/ 35 TD/TT: Front End Loader Operator: [facility] IGP,APTIMA HPV,AGE GDLNon AGE GDLN ACOG TESTING Note . [facility] Comment on above: TESTS RESULT FLAG UN ITS REF RANGE LAB Clinician Provided Cytology Information Source.............Endocervix No. of containers..01 ThinPrep Vial Age Algo ACOG Yris... FLAG LEGEND: L-Low Normal,H-High Normal,LL-Alert Low,HH-Alert High <-Panic Low,>-Panic High,A-Abnormal,AA-Critical Abnormal Performed at: 01 =G [facility] [place] [address] [place] [address] Jenise Byrne MD, IGP, RFX APTIMA HPV ASCU Note . [facility] Comment on above: TESTS RESULT FLAG UN ITS REF RANGE LAB DIAGNOSIS: 02 NEGATIVE FOR INTRAEPITHELIAL LESION OR MALIGNANCY. Specimen adequacy: 02 Satisfactory for evaluation. Endocervical and/or squamous metaplastic cells (endocervical component) are present. Performed by: Hussein Alvarez, Inventory Assistant ([facility]) . 02 Note: Note [...] <-Panic Low,>-Panic High,A-Abnormal,AA-Critical Abnormal Performed at: 02 WB [facility] [place] [address] [place] [address] Jenise Bynre MD, Performed at: = - [address], [place] [id number] Securities Teller: Jenise Byrne MD, Phone: [phone] Performed at: [facility] [address], [place] [id number] Securities Teller: Jenise Byrne MD, Phone: [phone] SPATULA-ALONE ENDOCERVIX CL[facility] Healthcar e RECURRENT VAGINITIS (HTRX)on 02-22-2025 ATOPOBIUM VAGINAE 0 [facility] ATOPOBIUM VAGINAE Not detected [facility] BVAB 2,3 (BACTERIAL VAGINOSIS ASSOCIATED BACTERIA 2, 3); MOBILUNCUS SPP 0 [facility] BVAB 2,3 (BACTERIAL VAGINOSIS ASSOCIATED BACTERIA 2, 3); MOBILUNCUS SPP Not detected [facility] SIMEON ALBICANS, PARAPSILOSIS, TROPICALIS 0 [facility] Healthcare SIMEON ALBICANS, PARAPSILOSIS, TROPICALIS Not detected [facility] SIMEON GLABRATA 0 [facility] SIMEON GLABRATA Not detected [facility] SIMEON KRUSEI 0 [facility] SIMEON KRUSEI Not detected N[facility] CHLAMYDIA TRACHOMATIS 0 [facility] CHLAMYDIA TRACHOMATIS Not detected [facility] GARDNERELLA VAGINALIS 0 [facility] GARDNERELLA VAGINALIS Not detected [facility] MEGASPHAERA (TYPES 1, 2) 0 [facility] MEGASPHAERA (TYPES 1, 2) Not detected [facility] MYCOPLASMA GENITALIUM 0 [facility] MYCOPLASMA GENITALIUM Not detected [facility] NEISSERIA GONORRHOEAE 0 [facility] NEISSERIA GONORRHOEAE Not detected [facility] TRICHOMONAS VAGINALIS 0 [facility] TRICHOMONAS VAGINALIS Not detected [facility] Health[facility] Urinalysis macro (dipstick) panel (U)on 02-20-2025 Bilirubin, UA Negative Negative - 4(70) +++ mg/dL [facility] Blood, UA Negative Negative - 50 Jason/mcL [facility] Clarity, UA Clear [facility] Healthca re Color, UA Yellow [facility] Health[facility] e Glucose, UA Negative Negative - 2000(110) ++++ mg/dL [facility] Interpretation and review of laboratory results Abnormal [facility] Ketones, UA Negative Negative - 160(16) ++++ mg/dL [facility] Leukocytes, UA Negative Negative - 500+++ Carlos/mcL [facility] Nitrite, UA Negative Negative - Positive [facility] pH, UA 7 5 - 9 [facility] Healthcar e Protein, UA Negative Negative - 1999(20) ++++ mg/dL [facility] Spec Grav, UA 1.01 1 - 1.03 [facility] Urobilinogen, UA 0.2 0.2 - 12 mg/dL [facility] Un[facility] Lab Teston 01-16-20 [facility] Urinalysis macro (dipstick) panel (U)on 01-14-2025 Bilirubin, UA Negative Negative - 4(70) +++ mg/dL [facility] Blood, UA Positive Negative - 50 Jason/mcL [facility] Comment on above: trace-intact Clarity, UA Clear [facility] Healthor re Color, UA Yellow [facility] Health[facility] e Glucose, UA Negative Negative - 1999(110) ++++ mg/dL [facility] Interpretation and review of laboratory results Abnormal [facility] Ketones, UA Negative Negative - 160(16) ++++ mg/dL [facility] Leukocytes, UA Negative Negative - 500+++ Carlos/mcL [facility] Nitrite, UA Negative Negative - Positive [facility] pH, UA 6 5 - 9 [facility] Health[facility] e Protein, UA Negative Negative - 1999(20) ++++ mg/dL [facility] Spec Grav, UA 1.005 1 - 1.03 [facility] Urobilinogen, UA 0.2 0.2 - 12 mg/dL [facility] Healthcar e Free Cell DNA (Non-Pro Medica Send Out)on 01-13-2025 [facility] ALL CBC WITH AUTO DIFFon BASOPHILS ABSOLUTE AUTO 0 [facility] Basophils/100 WBC (Bld) 0.4 % 0.2 - 2.0 % [facility] Eosinophils/100 WBC (Bld) 1.7 % 0.9 - 7.0 % [facility] Erythrocyte distribution width (RBC) [Ratio] 12.3 % 11.0 - 15.0 % [facility] Hematocrit (Bld) [Volume fraction] 42.5 % 36.0 - 48.0 % [facility] Hemoglobin (Bld) [Mass/Vol] 14.7 g/dL 12.0 - 16.0 g/dL [facility] IMMATURE GRANULOCYTES ABS AUTO 0.02 [facility] Immature granulocytes/100 WBC (Bld) 0.2 % 0.0 - 0.5 % [facility] Interpretation and review of laboratory results Abnormal [facility] LYMPHOCYTES ABSOLUTE AUTO 1.4 [facility] Lymphocytes/100 WBC (Bld) 15.4 % Low 20.5 - 60.0 % [facility] MCH (RBC) [Entitic mass] 31.6 pg 26.7 - 34.0 pg [facility] MCHC (RBC) [Mass/Vol] 34.6 g/dL 29.9 - 35.2 g/dL [facility] MCV (RBC) [Entitic vol] 91.4 fL 81.0 - 99.0 fL [facility] MONOCYTES ABSOLUTE AUTO 0.5 [facility] Monocytes/100 WBC (Bld) 5.4 % 1.7 - 12.0 % [facility] NEUTROPHILS ABSOLUTE AUTO 7 High [facility] Neutrophils/100 WBC (Bld) 76.9 % High 43.0 - 75.0 % [facility] Platelet mean volume (Bld) [Entitic vol] 10.1 fL 9.5 - 13.5 fL [facility] TBH EO # 0.2 [facility] PLT 216 [facility] RBC 4.65 [facility] WBC 9.2 [facility] e CL[facility]NC Hemoglobin A1con 01-05-2025 HbA1c (Bld) [Mass fraction] 5 % 4.0 - 6.0 % [facility] No Panel Informationon 01-05 [facility] US OB TRANSVAGINALon 025 US OB [...] II, MD, PHD at 14-Dec-2024 08:35:59 PM [facility] Normal Not Available Comment on above: Order Comment: US OB TRANSVAGINAL No LMP recorded. TBH PREG QUANT HCGon 025 HCG QUANTITATIVE 67720 mIU/mL [facility] Comment on above: 5-50 0.2-1 WEEK 50-500 1-2 WEEKS 100-5,000 2-3 WEEKS 500-10,000 3-4 WEEKS 1,000-50,000 4-5 WEEKS 10,000-100,000 5-6 WEEKS 15,000-200,000 6-8 WEEKS 10,000-100,000 2-3 [facility] PREG QUANT HCGon 025 HCG QUANTITATIVE 6254 mIU/mL [facility] Comment on above: 5-50 0.2-1 WEEK 50-500 1-2 WEEKS 100-5,000 2-3 WEEKS 500-10,000 3-4 WEEKS 1,000-50,000 4-5 WEEKS 10,000-100,000 5-6 WEEKS 15,000-200,000 6-8 WEEKS 10,000-100,000 2-3 [facility] TBH PREG QUANT HCGon 024 HCG QUANTITATIVE 6 mIU/mL [facility] Comment on above: 5-50 0.2-1 WEEK 50-500 1-2 WEEKS 100-5,000 2-3 WEEKS 500-10,000 3-4 WEEKS 1,000-50,000 4-5 WEEKS 10,000-100,000 5-6 WEEKS 15,000-200,000 6-8 WEEKS 10,000-100,000 2-3 MONTHS CL[facility]NC [facility] Healthcar e ALL CBC WITH AUTO DIFFon BASOPHILS ABSOLUTE AUTO 0 [facility] Basophils/100 WBC (Bld) 0.5 % 0.2 - 2.0 % [facility] Eosinophils/100 WBC (Bld) 6.2 % 0.9 - 7.0 % [facility] Erythrocyte distribution width (RBC) [Ratio] 11.9 % 11.0 - 15.0 % [facility] Hematocrit (Bld) [Volume fraction] 43.8 % 36.0 - 48.0 % [facility] Hemoglobin (Bld) [Mass/Vol] 14.8 g/dL 12.0 - 16.0 g/dL [facility] IMMATURE GRANULOCYTES ABS AUTO 0.02 [facility] Immature granulocytes/100 WBC (Bld) 0.2 % 0.0 - 0.5 % [facility] LYMPHOCYTES ABSOLUTE AUTO 2 [facility] Lymphocytes/100 WBC (Bld) 22.1 % 20.5 - 60.0 % [facility] MCH (RBC) [Entitic mass] 31.7 pg 26.7 - 34.0 pg [facility] MCHC (RBC) [Mass/Vol] 33.8 g/dL 29.9 - 35.2 g/dL [facility] MCV (RBC) [Entitic vol] 93.8 fL 81.0 - 99.0 fL [facility] MONOCYTES ABSOLUTE AUTO 0.5 [facility] Monocytes/100 WBC (Bld) 5.3 % 1.7 - 12.0 % [facility] NEUTROPHILS ABSOLUTE AUTO 5.8 [facility] Neutrophils/100 WBC (Bld) 65.7 % 43.0 - 75.0 % [facility] Platelet mean volume (Bld) [Entitic vol] 10 fL 9.5 - 13.5 fL [facility] Healthcare TBH EO # 0.6 [facility]H PLT 236 [facility] RBC 4.67 [facility] WBC 8.9 [facility] [place] 08-10-2024 L Specimen: [id number] Received: 08/10/24 Status: CAROL Parker Num: [id number] Spec Type: Surgical Subm Dr: Jose Rodriguez Tissues: A Products of Conception - Spontaneous or Missed (CONTENTS OF CONCEPT Procedures: HE/2, Gross/Agusto L4 Age/ Patient Sex Location Account Attending Physician Vimal Funes / LABELL [id number] Jose Rodriguez SPEC NUM: [id number] RECD: 08/10/24 STATUS: CAROL PARKER NUM: [id number] CAROLIN: 08/10/24-[address]: Jose Rodriguez ENTERED: 08/10/24-1502 [facility] DR: Nadir,Lab SPEC TYPE: Surgical DEPT: MONICA ALTMAN ENTERED BY: [id number] RECV BY: [id number] ORDERED: HE/2, Gross/Micro L4 ORDERED: HE/2, Gross/Micro [...] villi and decidua. No tissue is identified. Family Support Specialist sections of the chorionic villi are submitted in cassette A1 with technical account representative sections of the decidua is submitted in cassette A2. (2, ss, [id number]) CPT Codes 42872 Specimen: [id number] Received: 08/10/24 Status: CAROL Parker Num: [id number] Spec Type: Surgical Subm Dr: Jose Rodriguez Tissues: A Products of Conception - Spontaneous or Missed (CONTENTS OF CONCEPT Procedures: HE/2, Gross/Micro L4 Patient: Vimal Funes [id number] (Continued) Signed (signature on file) Josh Aragon MD 08/13/24 1647 Normal [facility] TB PREG QUANT HCGon 08-10- 024 HCG QUANTITATIVE 240 mIU/mL [facility] Comment on above: 5-50 0.2-1 WEEK 50-500 1-2 WEEKS 100-5,000 2-3 WEEKS 500-10,000 3-4 WEEKS 1,000-50,000 4-5 WEEKS 10,000-100,000 5-6 WEEKS 15,000-200,000 6-8 WEEKS 10,000-100,000 2-3 [facility]TH[facility] CBC WITH AUTO DIFFon BASOPHILS ABSOLUTE AUTO 0.1 [facility] Basophils/100 WBC (Bld) 0.5 % 0.2 - 2.0 % [facility] Eosinophils/100 WBC (Bld) 2.8 % 0.9 - 7.0 % [facility] Erythrocyte distribution width (RBC) [Ratio] 11.9 % 11.0 - 15.0 % [facility] Hematocrit (Bld) [Volume fraction] 44.7 % 36.0 - 48.0 % [facility] Hemoglobin (Bld) [Mass/Vol] 15.3 g/dL 12.0 - 16.0 g/dL [facility] IMMATURE GRANULOCYTES ABS AUTO 0.03 [facility] Immature granulocytes/100 WBC (Bld) 0.3 % 0.0 - 0.5 % [facility] Interpretation and review of laboratory results Abnormal [facility] LYMPHOCYTES ABSOLUTE AUTO 1.6 [facility] Lymphocytes/100 WBC (Bld) 14.9 % Low 20.5 - 60.0 % [facility] MCH (RBC) [Entitic mass] 31.7 pg 26.7 - 34.0 pg [facility] MCHC (RBC) [Mass/Vol] 34.2 g/dL 29.9 - 35.2 g/dL [facility] MCV (RBC) [Entitic vol] 92.7 fL 81.0 - 99.0 fL [facility] MONOCYTES ABSOLUTE AUTO 0.4 [facility] Monocytes/100 WBC (Bld) 3.7 % 1.7 - 12.0 % [facility] NEUTROPHILS ABSOLUTE AUTO 8.2 High [facility] Neutrophils/100 WBC (Bld) 77.8 % High 43.0 - 75.0 % [facility] Platelet mean volume (Bld) [Entitic vol] 10 fL 9.5 - 13.5 fL [facility] TBH EO # 0.3 [facility] Healthcar e TBH PLT 263 [facility] TB RBC 4.82 [facility] Healthcar e TB WBC 10.6 [facility] Health[facility] e [facility] No Panel Informationon 07-21 [facility] Healthcar e TBH DRUG SCREEN RAPID (URINE )on 07-21-2024 AMPHETAMINE SCREEN URINE Negative NEGATIVE [facility] BARBITURATES SCREEN URINE Negative NEGATIVE [facility] BENZODIAZEPINES SCREEN URINE Negative NEGATIVE [facility] BUPRENORPHINE SCREEN URINE Negative NEGATIVE [facility] Comment on above: DRUG CLASS TEST [...] 300 ng/mL CANNABINOID SCREEN URINE Negative NEGATIVE [facility] COCAINE SCREEN URINE Negative NEGATIVE [facility] METHADONE SCREEN URINE Negative NEGATIVE [facility] METHAMPHETAMINES SCREEN URINE Negative NEGATIVE [facility] OPIATE SCREEN URINE Negative NEGATIVE [facility] OXYCODONE SCREEN URINE Negative NEGATIVE [facility] PHENCYCLIDINE SCREEN URINE Negative NEGATIVE [facility] TRICYCLIC ANTIDEPRESSANT URINE Negative NEGATIVE [facility] REEFLEX IF POSITIVE [facility] HCG ( test) Ql (U)o n 06-29-2024 Interpretation and review of laboratory results Abnormal [facility] Preg Test, Ur Positive [facility] care [facility] Urinalysis macro (dipstick) panel (U)on 06-29-2024 Bilirubin, UA Negative Negative - 4(70) +++ mg/dL [facility] Blood, UA Negative Negative - 50 Jason/mcL [facility] Clarity, UA [facility] re Color, UA Yellow [facility] Healthcar e Glucose, UA Negative Negative - 1999(110) ++++ mg/dL [facility] Interpretation and review of laboratory results Normal [facility] Ketones, UA Negative Negative - 160(16) ++++ mg/dL [facility] Leukocytes, UA Negative Negative - 500+++ Carlos/mcL [facility] Nitrite, UA Negative Negative - Positive [facility] pH, UA 7.0 5 - 9 [facility] Healthcar e Protein, UA Negative Negative - 1999(20) ++++ mg/dL [facility] Spec Grav, UA 1.015 1 - 1.03 [facility] Urobilinogen, UA 0.2 0.2 - 12 mg/dL [facility] XR hand RT min 3V*on 023 XR hand RT min 3V* [facility] [employer] [facility] [employer] Other XR hand RT min 3V* [facility] [employer] Other XR hand RT min 3V* [address] [facility] [employer] [facility] [employer] Other XR hand RT min 3V* [place] [address] [employer] [facility] [employer] Other XR hand RT min 3V* XRay Report [facility] Other XR hand RT min 3V* Signed [facility] Other XR hand RT min 3V* Patient: Vimal Funes MR#: [id number] [facility] Other XR hand RT min 3V* 18 [facility] Other XR hand RT min 3V* : 2000 Acct:[id number] [facility] Other XR hand RT min 3V* Age/Sex: 22 / F ADM Date: 12/26/22 [facility] Other XR hand RT min 3V* Loc: XDUCLY Room: Type: REG CLI [facility] Other XR hand RT min 3V* Attending Dr: Jennifer GIL [facility] Other XR hand RT min 3V* Copies to: JEFFERY Rodriguez [facility] Other XR hand RT min 3V* Ordering Provider: JEFFERY Rodriguez [facility] Other XR hand RT min 3V* Date of Service: 12/26/22 [facility] Other XR hand RT min 3V* XR/XR hand RT min 3V*: RIGHT HAND INJURY [facility] Other XR hand RT min 3V* RIGHT HAND - 4 views [facility] Other XR hand RT min 3V* REASON FOR EXAM: Patient had right thumb hyperextended yesterday when trying to open the door. Now [facility] Other XR hand RT min 3V* with pain. [facility] Other XR hand RT min 3V* COMPARISON: None [facility] Other XR hand RT min 3V* FINDINGS: [facility] Other XR hand RT min 3V* No focal soft tissue abnormality. There appears to be avulsion fracture involving the base of the [facility] Other XR hand RT min 3V* distal phalanx of the thumb. Joint spaces appear maintained. No bony erosions. [facility] Other XR hand RT min 3V* XR/XR hand RT min 3V* [facility] Other XR hand RT min 3V* IMPRESSION: [facility] Other XR hand RT min 3V* AVULSION FRACTURE INVOLVING THE BASE OF THE DISTAL PHALANX OF THE THUMB. [facility] Other XR hand RT min 3V* Impression dictated by: Bulmaro Arias Jr., DGeneOGene12/26/2022 1:44 PM [facility] Other XR hand RT min 3V* Dictation Location: [place] [address] [facility] Other XR hand RT min 3V* Transcribed By: PWS 12/26/22 [facility] Other XR hand RT min 3V* Dictated By: Bulmaro Arias Jr, DO 12/26/22 [facility] Other XR hand RT min 3V* Signed By: [facility] Other XR hand RT min 3V* 12/26/[address] [place] [address] [place] Other PAP ACOG PANEL 2: 22 to 30on 11-09-2022 . . Normal [facility] Comment on above: Performed By: #### [id number] ####[facility] [id number] [place] [id number] Mancini Age Gdln ACOG Testing - Normal [facility] Comment on above: Performed By: #### [id number] ####[facility] [address] [place], [place] [address]GvGene Mancini DIAGNOSIS: Comment Normal [facility] Comment on above: Result Comment: NEGA TIVE FOR INTRAEPITHELIAL LESION OR MALIGNANCY. Performed By: #### [id number] ####[facility] [address] [place], [place] [address]DrGene Mancini Methodology: Comment Normal [facility] Comment on above: Result Comment: This liquid based ThinPrep(R) pap test was screened with the use of an image guided system. Performed By: #### [id number] ####[facility] [address] [place], [place] [address]DrGene Mancini Note: Comment Normal [facility] Comment on above: Result Comment: The Pap smear is a screening test designed to aid in the detection of premalignant and malignant conditions of the uterine cervix. It is not a diagnostic procedure and should not be used as the sole means of detecting cervical cancer. Both false-positive and false-negative reports do occur. . Performed By: #### [id number] ####[place] [address]DrGene Mancini Performed by: Comment Normal [facility] Comment on above: Result Comment: Zuleima Lin, Md Psychiatry (ASCP) Performed By: #### [id number] ####[facility] [address] [place], [place] [address]DrGene Mancini Reflex Criteria: Comment Normal [facility] Comment on above: Result Comment: The HPV DNA reflex criteria were not met with this specimen result therefore, no HPV testing was performed. . Performed By: #### [id number] ####[facility] [address] [place], [place] [address]DrGene Mancini Specimen adequacy: Comment Normal [facility] Comment on above: Result Comment: Sati sfactory for evaluation. Endocervical and/or squamous metaplastic cells (endocervical component) are present. Performed By: #### [id number] ####[facility] [address] [place], [place] [address]DrGene Mancini Cytology Cervical or vaginal smear or scraping studyOrdered By: Jael Nix on 11-02-2022 [facility] CBC AUTO DIFFon 08-11-2022 BASO # 0.0 103/ul Normal 0.0-0.1 [facility] Comment on above: Performed By: #### C T/NGNA #### [facility] [address] [place] [address] Dr. Donis Mancini Basophils/100 WBC (Bld) 0.2 % Normal 0.2-2.0 [facility] Comment on above: Performed By: #### C T/NGNA #### [facility] [address] [place] [address] Dr. Donis Mancini EO # 0.1 103/ul Normal 0.0-0.7 [facility] Comment on above: Performed By: #### C T/NGNA #### [facility] [address] [place] [address] Dr. Donis Mancini Eosinophils/100 WBC (Bld) 0.5 % Critically low 0.9-7.0 [facility] Comment on above: Performed By: #### C T/NGNA #### [facility] [address] [place] [address] Dr. Donis Mancini Erythrocyte distribution width (RBC) [Ratio] 12.5 % Normal 11.0-15.0 [facility] Comment on above: Performed By: #### C T/NGNA #### [facility] [address] [place] [address] Dr. Donis Mancini Hematocrit (Bld) [Volume fraction] 35.9 % Critically low 36.0-48.0 [facility] Comment on above: Performed By: #### C T/NGNA #### [facility] [address] [place] [address] Dr. Donis Mancini Hemoglobin (Bld) [Mass/Vol] 12.4 g/dL Normal 12.0-16.0 [facility] Comment on above: Result Comment: michelet ent delivered Performed By: #### C T/NGNA #### [facility] [address] [place] [address] Dr. Donis Mancini IG # 0.10 10e3/ul Critically high 0.00-0.03 [facility] Comment on above: Performed By: #### C T/NGNA #### [facility] [address] [address] [address] Donis Mancini IG % 0.5 % Normal 0.0-0.5 [facility] Comment on above: Performed By: #### C T/NGNA #### [facility] [address] [place] [address] Dr. Donis Mancini LYMPH # 1.5 103/ul Normal 1.2-3.8 [facility] Comment on above: Performed By: #### C T/NGNA #### [facility] [address] [place] [address] Dr. Donis Mancini Lymphocytes/100 WBC (Bld) 7.6 % Critically low 20.5-60.0 [facility] Comment on above: Performed By: #### C T/NGNA #### [facility] [address] [place] [address] Dr. Donis Mancini MANUAL DIFF REQ NO Normal [facility] Comment on above: Performed By: #### C T/NGNA #### [facility] [address] [place] [address] Dr. Donis Mancini MCH (RBC) [Entitic mass] 32.2 pg Normal 26.7-34.0 [facility] Comment on above: Performed By: #### C T/NGNA #### [facility] [address] [place] [address] Dr. Donis Mancini MCHC (RBC) [Mass/Vol] 34.5 g/dL Normal 29.9-35.2 [facility] Comment on above: Performed By: #### C T/NGNA #### [facility] [address] [place] [address] Dr. Donis Mancini MCV (RBC) [Entitic vol] 93.2 fL Normal 81.0-99.0 [facility] Comment on above: Performed By: #### C T/NGNA #### [facility] [address] [place] [address] Dr. Donis Mancini MONO # 1.3 103/ul Critically high 0.3-0.8 [facility] Comment on above: Performed By: #### C T/NGNA #### [facility] [address] [address] [address] Donis Mancini Monocytes/100 WBC (Bld) 6.8 % Normal 1.7-12.0 [facility] Comment on above: Performed By: #### C T/NGNA #### [facility] [address] [address] [address] Donis Mancini NEUT # 16.2 103/ul Critically high 1.4-6.5 [facility] Comment on above: Performed By: #### C T/NGNA #### [facility] [address] [place] [address] Dr. Donis Mancini Neutrophils/100 WBC (Bld) 84.4 % Critically high 43.0-75.0 [facility] Comment on above: Performed By: #### C T/NGNA #### [facility] [address] [place] [address] Dr. Donis Mancini Platelet mean volume (Bld) [Entitic vol] 11.8 fL Normal 9.5-13.5 [facility] Comment on above: Performed By: #### C T/NGNA #### [facility] [address] [address] [address] Donis Mancini PLT 156 103/ul Normal 150-450 [facility] Comment on above: Performed By: #### C T/NGNA #### [facility] [address] [place] [address] Dr. Donis Mancini RBC 3.85 106/ul Critically low 4.20-5.40 [facility] Comment on above: Performed By: #### C T/NGNA #### [facility] [address] [place] [address] Dr. Donis Mancini WBC 19.2 103/ul Critically high 4.0-11.0 [facility] Comment on above: Performed By: #### C T/NGNA #### [facility] [address] [place] [address] Dr. Donis Mancini Covid-19 PCR ([facility])on 07-27 SARS-CoV-2 (COVID-19) RNA INESSA+probe Ql (Unsp spec) Not detected Normal NOT DETECTED [facility] Comment on above: Result Comment: When diagnostic [...] for this test is supported by the [employer] of Health and Human Service's declaration that [...] be used). Performed By: #### C VDTBH ####[facility] [address] [place], [place] [address]Dr. javi [facility] DRUG SCREEN RAPID (URINE)on 08-10-2022 AMP Negative Normal NEGATIVE [facility] Comment on above: Performed By: #### D RUGRPD ####[facility] [address] [place], [place] [address]Dr. Donis Mancini BAR Negative Normal NEGATIVE [facility] Comment on above: Performed By: #### D RUGRPD ####[facility] [address] [address]Dr. Donis Mancini BUP Negative Normal NEGATIVE [facility] Comment on above: Performed By: #### D RUGRPD ####[facility] [address] [address]Dr. javi Mancini BZO Negative Normal NEGATIVE [facility] Comment on above: Performed By: #### D RUGRPD ####[facility] [address] [id number]. Donis Mancini ALEXA Negative Normal NEGATIVE [facility] Comment on above: Performed By: #### D RUGRPD ####[facility] [address] [place], [place] [id number]. Donis Mancini CUT-OFFS SEE BELOW Normal [facility] Comment on above: Result Comment: AMP (Amphetamine): 500ng/mL, BAR (Barbituates): 200 ng/mL, BZO (Benzodiazepines): 150 ng/mL, BUP (Buprenorphine): 10 ng/mL, ALEXA (Cocaine): 150 ng/mL, mAMP (Methamphetamine): 500 ng/mL, MTD (Methadone): 200 ng/mL, OPI (Opiates): 100 ng/mL, OXY (Oxycodone): 100 ng/mL, PCP (Phencyclidine): 25 ng/mL, PPX (Propoxyphene): 300 ng/mL, THC (Cannabinoids): 50 ng/mL, TCA (Trycyclic Antidepressants): 300 ng/mL Performed By: #### D RUGRPD ####[facility] [address] [place], [place] [address]Dr. Donis Mancini DRUG CUT HEADER DRUG CLASS TEST SYSTEM CUT-OFF CONCENTRATIONS ARE FOLLOWS: Normal [facility] Comment on above: Performed By: #### D RUGRPD ####[facility] [address] [place], [place] [address]Dr. Donis Mancini mAMP Negative Normal NEGATIVE [facility] Comment on above: Performed By: #### D RUGRPD ####[facility] [address] [place], [place] [address]Dr. Donis Mancini MTD Negative Normal NEGATIVE [facility] Comment on above: Performed By: #### D RUGRPD ####[facility] [address] [place], [place] [address]Dr. Donis Mancini OPI Negative Normal NEGATIVE [facility] Comment on above: Performed By: #### D RUGRPD ####[facility] [address] [place], [place] [address]Dr. Donis Mancini OXY Negative Normal NEGATIVE [facility] Comment on above: Performed By: #### D RUGRPD ####[facility] [address] [place], [place] [address]Dr. Donis Mancini PCP Negative Normal NEGATIVE [facility] Comment on above: Performed By: #### D RUGRPD ####[facility] [address] [phone]. Donis Mancini PPX Negative Normal NEGATIVE [facility] Comment on above: Performed By: #### D RUGRPD ####[facility] [address] [place], [place] [address]Tm. Donis Mancini TCA Negative Normal NEGATIVE [facility] Comment on above: Performed By: #### D RUGRPD ####[facility] [address] [phone]. Donis Mancini THC Negative Normal NEGATIVE [facility] Comment on above: Performed By: #### D RUGRPD ####[facility] [address] [address]Dr. Donis Mancini TYPE AND SCREENon 08-10-2022 TYPE AND SCREEN Negative Normal [facility] Comment on above: Performed By: #### T NS ####[facility] [address] [address]Dr. Donis Mancini US PREG BIOPHY W NON [...] ESTEFANY BENNETT Date: 2022-08-10 07:18 Normal [facility] US PREG GROWTHon 08-10-2022 US PREG GROWTH [...] ESTEFANY BENNETT Date: 2022-08-10 07:16 Normal [facility] CBC AUTO DIFFon 08-09-2022 BASO # 0.0 103/ul Normal 0.0-0.1 [facility] Comment on above: Performed By: #### C BC ####[facility] [address] [place], [place] [address]Dr. Donis Mancini Basophils/100 WBC (Bld) 0.2 % Normal 0.2-2.0 [facility] Comment on above: Performed By: #### C BC ####[facility] [address] [place], [place] [address]Dr. Donis Mancini EO # 0.4 103/ul Normal 0.0-0.7 [facility] Comment on above: Performed By: #### C BC ####[facility] [address] [place], [place] [address]Dr. Donis Mancini Eosinophils/100 WBC (Bld) 2.8 % Normal 0.9-7.0 [facility] Comment on above: Performed By: #### C BC ####[facility] [address] [place], [place] [address]Dr. Donis Mancini Erythrocyte distribution width (RBC) [Ratio] 12.2 % Normal 11.0-15.0 [facility] Comment on above: Performed By: #### C BC ####[facility] [address] [place], [place] [address]Dr. Donis Mancini Hematocrit (Bld) [Volume fraction] 41.4 % Normal 36.0-48.0 [facility] Comment on above: Performed By: #### C BC ####[facility] [address] [phone]. Donis Mancini Hemoglobin (Bld) [Mass/Vol] 14.4 g/dL Normal 12.0-16.0 [facility] Comment on above: Performed By: #### C BC ####[facility] [address] [phone]. Donis Mancini IG # 0.06 10e3/ul Critically high 0.00-0.03 [facility] Comment on above: Performed By: #### C BC ####[facility] [address] [address]Dr. Donis Mancini IG % 0.5 % Normal 0.0-0.5 [facility] Comment on above: Performed By: #### C BC ####[facility] [address] [address]Dr. Donis Mancini LYMPH # 1.5 103/ul Normal 1.2-3.8 [facility] Comment on above: Performed By: #### C BC ####[facility] [address] [address]Dr. Donis Mancini Lymphocytes/100 WBC (Bld) 11.7 % Critically low 20.5-60.0 [facility] Comment on above: Performed By: #### C BC ####[facility] [address] [address]Dr. Donis Mancini MANUAL DIFF REQ NO Normal [facility] Comment on above: Performed By: #### C BC ####[facility] [address] [phone]. Donis Mancini MCH (RBC) [Entitic mass] 31.9 pg Normal 26.7-34.0 [facility] Comment on above: Performed By: #### C BC ####[facility] [address] [phone]. Donis Mancini MCHC (RBC) [Mass/Vol] 34.8 g/dL Normal 29.9-35.2 [facility] Comment on above: Performed By: #### C BC ####[facility] [address] [phone]. Donis Mancini MCV (RBC) [Entitic vol] 91.8 fL Normal 81.0-99.0 [facility] Comment on above: Performed By: #### C BC ####[facility] [address] [phone]. Donis Mancini MONO # 1.0 103/ul Critically high 0.3-0.8 [facility] Comment on above: Performed By: #### C BC ####[facility] [address] [phone]. Donis Mancini Monocytes/100 WBC (Bld) 7.5 % Normal 1.7-12.0 [facility] Comment on above: Performed By: #### C BC ####[facility] [address] [place], [place] [address]Dr. Donis Mancini NEUT # 10.0 103/ul Critically high 1.4-6.5 [facility] Comment on above: Performed By: #### C BC ####[facility] [address] [place], [place] [address]Dr. Donis Mancini Neutrophils/100 WBC (Bld) 77.3 % Critically high 43.0-75.0 [facility] Comment on above: Performed By: #### C BC ####[facility] [address] [place], [place] [address]Dr. Donis Mancini Platelet mean volume (Bld) [Entitic vol] 11.6 fL Normal 9.5-13.5 [facility] Comment on above: Performed By: #### C BC ####[facility] [address] [phone]. Donis Mancini PLT 184 103/ul Normal 150-450 [facility] Comment on above: Performed By: #### C BC ####[facility] [address] [phone]. Donis Mancini RBC 4.51 106/ul Normal 4.20-5.40 [facility] Comment on above: Performed By: #### C BC ####[facility] [address] [place], [place] [address]Dr. Donis Mancini WBC 12.9 103/ul Critically high 4.0-11.0 [facility] Comment on above: Performed By: #### C BC ####[facility] [address] [place], [place] [address]Dr. Donis Mancini LDHon 08-09-2022 LDH 167 U/L Normal 81-234 [facility] Comment on above: Performed By: #### C T/NGNA #### [facility] [address] [address] [address] Donis Mancini PROF 14(COMP METB)on 022 Albumin [Mass/Vol] 2.7 g/dL Critically low 3.4-5.0 [facility] Comment on above: Performed By: #### C T/NGNA #### [facility] [address] [address] [address] Donis Mancini Albumin/Globulin [Mass ratio] 0.6 {ratio} Normal [facility] Comment on above: Performed By: #### C T/NGNA #### [facility] [address] [address] [address] Donis Mancini ALP [Catalytic activity/Vol] 176 U/L Critically high 46-116 [facility] Comment on above: Performed By: #### C T/NGNA #### [facility] [address] [address] [address] Donis Mancini ALT [Catalytic activity/Vol] 20 U/L Normal 14-59 [facility] Comment on above: Performed By: #### C T/NGNA #### [facility] [address] [address] [address] Donis Mancini Anion gap [Moles/Vol] 12.9 mmol/L Normal [facility] Comment on above: Performed By: #### C T/NGNA #### [facility] [address] [place] [address] Dr. Donis Mancini AST [Catalytic activity/Vol] 20 U/L Normal 15-37 [facility] Comment on above: Performed By: #### C T/NGNA #### [facility] [address] [address] [address] Donis Mancini Bilirubin [Mass/Vol] 0.1 mg/dL Critically low 0.2-1.0 [facility] Comment on above: Performed By: #### C T/NGNA #### [facility] [address] [address] [address] Donis Mancini Calcium [Mass/Vol] 9.1 mg/dL Normal 8.5-10.1 [facility] Comment on above: Performed By: #### C T/NGNA #### [facility] [address] [address] [address] Donis Mancini Chloride [Moles/Vol] 104 mmol/L Normal 98-107 [facility] Comment on above: Performed By: #### C T/NGNA #### [facility] [address] [address] [address] Donis Mancini CO2 [Moles/Vol] 22.9 mmol/L Normal 21.0-32.0 [facility] Comment on above: Performed By: #### C T/NGNA #### [facility] [address] [place] [address] Dr. Donis Mancini Creatinine [Mass/Vol] 0.43 mg/dL Critically low 0.55-1.02 [facility] Comment on above: Performed By: #### C T/NGNA #### [facility] [address] [address] [address] Donis Mancini EGFR-AF ECUADOREAN >60 Normal >=60 [facility] Comment on above: Performed By: #### C T/NGNA #### [facility] [address] [address] [address] Donis Mancini EGFR-NON AF ECUADOREAN >60 Normal >=60 [facility] Comment on above: Performed By: #### C T/NGNA #### [facility] [address] [place] [address] Dr. Donis Mancini Globulin (S) [Mass/Vol] 4.2 g/dL Normal [facility] Comment on above: Performed By: #### C T/NGNA #### [facility] [address] [address] [address] Donis Mancini Glucose [Mass/Vol] 95 mg/dL Normal 74-106 [facility] Comment on above: Performed By: #### C T/NGNA #### [facility] [address] [place] [address] Dr. Donis Mancini Potassium [Moles/Vol] 3.8 mmol/L Normal 3.5-5.1 [facility] Comment on above: Performed By: #### C T/NGNA #### [facility] [address] [place] [address] Dr. Donis Mancini Protein [Mass/Vol] 6.9 g/dL Normal 6.4-8.2 [facility] Comment on above: Performed By: #### C T/NGNA #### [facility] [address] [place] [address] Dr. Donis Mancini Sodium [Moles/Vol] 136 mmol/L Normal 136-145 [facility] Comment on above: Performed By: #### C T/NGNA #### [facility] [address] [place] [address] Dr. Donis Mancini Urea nitrogen [Mass/Vol] 10.0 mg/dL Normal 7.0-18.0 [facility] Comment on above: Performed By: #### C T/NGNA #### [facility] [address] [place] [address] Dr. Donis Mancini Urea nitrogen/Creatinine [Mass ratio] 23.3 mg/mg Normal [facility] Comment on above: Performed By: #### C T/NGNA #### [facility] [address] [place] [address] Dr. Donis Mancini URIC ACID SERUMon 08-09-2022 Urate [Mass/Vol] 3.6 mg/dL Normal 2.6-6.0 [facility] Comment on above: Performed By: #### C T/NGNA #### [facility] [address] [place] [address] Dr. Donis Mancini CBC AUTO DIFFon 08-07-2022 BASO # 0.0 103/ul Normal 0.0-0.1 [facility] Comment on above: Performed By: #### U AMIC #### [facility] [address] [address] [address] Donis Mancini Basophils/100 WBC (Bld) 0.2 % Normal 0.2-2.0 [facility] Comment on above: Performed By: #### U AMIC #### [facility] [address] [address] [address] Donis Mancini EO # 0.2 103/ul Normal 0.0-0.7 [facility] Comment on above: Performed By: #### U AMIC #### [facility] [address] [place] [address] Dr. Donis Mancini Eosinophils/100 WBC (Bld) 1.8 % Normal 0.9-7.0 [facility] Comment on above: Performed By: #### U AMIC #### [facility] [address] [address] [address] Donis Mancini Erythrocyte distribution width (RBC) [Ratio] 12.3 % Normal 11.0-15.0 [facility] Comment on above: Performed By: #### U AMIC #### [facility] [address] [place] [address] Dr. Donis Mancini Hematocrit (Bld) [Volume fraction] 45.7 % Normal 36.0-48.0 [facility] Comment on above: Performed By: #### U AMIC #### [facility] [address] [address] [address] Donis Mancini Hemoglobin (Bld) [Mass/Vol] 16.0 g/dL Normal 12.0-16.0 [facility] Comment on above: Performed By: #### U AMIC #### [facility] [address] [address] [address] Donis Mancini IG # 0.07 10e3/ul Critically high 0.00-0.03 [facility] Comment on above: Performed By: #### U AMIC #### [facility] [address] [address] [address] Donis Mancini IG % 0.5 % Normal 0.0-0.5 [facility] Comment on above: Performed By: #### U AMIC #### [facility] [address] [address] [address] oDnis Mancini LYMPH # 1.5 103/ul Normal 1.2-3.8 [facility] Comment on above: Performed By: #### U AMIC #### [facility] [address] [address] [address] Donis Mancini Lymphocytes/100 WBC (Bld) 11.2 % Critically low 20.5-60.0 [facility] Comment on above: Performed By: #### U AMIC #### [facility] [address] [place] [address] Dr. Donis Mancini MANUAL DIFF REQ NO Normal [facility] Comment on above: Performed By: #### U AMIC #### [facility] [address] [address] [address] Donis Mancini MCH (RBC) [Entitic mass] 32.0 pg Normal 26.7-34.0 [facility] Comment on above: Performed By: #### U AMIC #### [facility] [address] [place] [address] Dr. Donis Mancini MCHC (RBC) [Mass/Vol] 35.0 g/dL Normal 29.9-35.2 [facility] Comment on above: Performed By: #### U AMIC #### [facility] [address] [address] [address] Donis Mancini MCV (RBC) [Entitic vol] 91.4 fL Normal 81.0-99.0 [facility] Comment on above: Performed By: #### U AMIC #### [facility] [address] [place] [address] Dr. Donis Mancini MONO # 0.9 103/ul Critically high 0.3-0.8 [facility] Comment on above: Performed By: #### U AMIC #### [facility] [address] [address] [address] Donis Mancini Monocytes/100 WBC (Bld) 6.3 % Normal 1.7-12.0 [facility] Comment on above: Performed By: #### U AMIC #### [facility] [address] [address] [address] Donis Mancini NEUT # 10.9 103/ul Critically high 1.4-6.5 [facility] Comment on above: Performed By: #### U AMIC #### [facility] [address] [address] [address] Donis Mancini Neutrophils/100 WBC (Bld) 80.0 % Critically high 43.0-75.0 [facility] Comment on above: Performed By: #### U AMIC #### [facility] [address] [address] [address] Donis Mancini Platelet mean volume (Bld) [Entitic vol] 11.5 fL Normal 9.5-13.5 [facility] Comment on above: Performed By: #### U AMIC #### [facility] [address] [address] [address] Donis Mancini PLT 182 103/ul Normal 150-450 [facility] Comment on above: Performed By: #### U AMIC #### [facility] [address] [address] [address] Donis Mancini RBC 5.00 106/ul Normal 4.20-5.40 [facility] Comment on above: Performed By: #### U AMIC #### [facility] [address] [address] [address] Donis Mancini WBC 13.6 103/ul Critically high 4.0-11.0 [facility] Comment on above: Performed By: #### U AMIC #### [facility] [address] [address] [address] Donis Mancini LDHon 08-07-2022 LDH 171 U/L Normal 81-234 [facility] Comment on above: Performed By: #### C MP, URIC, LDH ####[facility] [address] [address]Dr. Donis Mancini PROF 14(COMP METB)on 022 Albumin [Mass/Vol] 2.9 g/dL Critically low 3.4-5.0 [facility] Comment on above: Performed By: #### C MP, URIC, LDH ####[facility] [address] [address]Dr. Donis Mancini Albumin/Globulin [Mass ratio] 0.6 {ratio} Normal [facility] Comment on above: Performed By: #### C MP, URIC, LDH ####[facility] [address] [address]Dr. Donis Mancini ALP [Catalytic activity/Vol] 192 U/L Critically high 46-116 [facility] Comment on above: Performed By: #### C MP, URIC, LDH ####[facility] [address] [place], [place] [address]Dr. Donis Mancini ALT [Catalytic activity/Vol] 23 U/L Normal 14-59 [facility] Comment on above: Performed By: #### C MP, URIC, LDH ####[facility] [address] [address]Dr. Donis Mancini Anion gap [Moles/Vol] 14.4 mmol/L Normal [facility] Comment on above: Performed By: #### C MP, URIC, LDH ####[facility] [address] [place], [place] [address]Dr. Donis Mancini AST [Catalytic activity/Vol] 23 U/L Normal 15-37 [facility] Comment on above: Performed By: #### C MP, URIC, LDH ####[facility] [address] [address]Dr. Donis Mancini Bilirubin [Mass/Vol] 0.2 mg/dL Normal 0.2-1.0 [facility] Comment on above: Performed By: #### C MP, URIC, LDH ####[facility] [address] [address]Dr. Donis Mancini Calcium [Mass/Vol] 9.4 mg/dL Normal 8.5-10.1 [facility] Comment on above: Performed By: #### C MP, URIC, LDH ####[facility] [address] [address]Dr. Laceyjavi Live Chloride [Moles/Vol] 104 mmol/L Normal 98-107 [facility] Comment on above: Performed By: #### C MP, URIC, LDH ####[facility] [address] [address]Dr. Laceyjavi Live CO2 [Moles/Vol] 21.7 mmol/L Normal 21.0-32.0 [facility] Comment on above: Performed By: #### C MP, URIC, LDH ####[facility] [address] [place], [place] [address]Dr. Donis Mancini Creatinine [Mass/Vol] 0.46 mg/dL Critically low 0.55-1.02 [facility] Comment on above: Performed By: #### C MP, URIC, LDH ####[facility] [address]os[address] [place], [place] [address]Dr. Donis Live EGFR-AF ECUADOREAN >60 Normal >=60 [facility] Comment on above: Performed By: #### C MP, URIC, LDH ####[facility] I[address]xwc[address] [place], [place] [address]Dr. Laceyjavi Live EGFR-NON AF ECUADOREAN >60 Normal >=60 [facility] Comment on above: Performed By: #### C MP, URIC, LDH ####[facility] [address] [address]Dr. Donis Mancini Globulin (S) [Mass/Vol] 4.6 g/dL Normal [facility] Comment on above: Performed By: #### C MP, URIC, LDH ####[facility] [address] [address]Dr. Donis Mancini Glucose [Mass/Vol] 89 mg/dL Normal 74-106 [facility] Comment on above: Performed By: #### C MP, URIC, LDH ####[facility] [address] [address]Dr. Donis Mancini Potassium [Moles/Vol] 4.1 mmol/L Normal 3.5-5.1 [facility] Comment on above: Performed By: #### C MP, URIC, LDH ####[facility] [address] [address]Dr. Donis Mancini Protein [Mass/Vol] 7.5 g/dL Normal 6.4-8.2 [facility] Comment on above: Performed By: #### C MP, URIC, LDH ####[facility] [address] [address]Dr. Donis Mancini Sodium [Moles/Vol] 136 mmol/L Normal 136-145 [facility] Comment on above: Performed By: #### C MP, URIC, LDH ####[facility] [address] [address]Dr. Donis Mancini Urea nitrogen [Mass/Vol] 8.0 mg/dL Normal 7.0-18.0 [facility] Comment on above: Performed By: #### C MP, URIC, LDH ####[facility] [address] [address]Dr. Donis Mancini Urea nitrogen/Creatinine [Mass ratio] 17.4 mg/mg Normal [facility] Comment on above: Performed By: #### C MP, URIC, LDH ####[facility] [address] [address]DrGene Mancini PROTIMEon 08-07-2022 INR Coag (PPP) [Relative time] {INR} Normal [facility] Comment on above: Performed By: #### U AMIC #### [facility] [address] [address] [address] Donis Mancini INR GUIDELINES SEE BELOW Normal [facility] Comment on above: Result Comment: NICCI RED INR: 2.0 - 3.0 CONDITIONS NOT LISTED BELOW 2.5 - 3.5 FOR PROSTHETIC HEART VALVE REPLACEMENT 2.5 - 3.5 RECURRENT THROMBOSIS Performed By: #### U AMIC #### [facility] [address] [address] [address] Donis Mancini PT Coag (PPP) [Time] 9.8 s Normal 9.0-11.6 [facility] Comment on above: Performed By: #### U AMIC #### [facility] [address] [place] [address] Dr. Donis Mancini PTTon 08-07-2022 aPTT Coag (Bld) [Time] 28.5 s Normal 22.3-36.2 [facility] Comment on above: Performed By: #### U AMIC #### [facility] [address] [place] [address] Dr. Donis Mancini UA (CLEAN/CATCH) BEET WORKER/MICRO I F IND.on 08-07-2022 Bilirubin Ql (U) Negative Normal NEGATIVE [facility] Comment on above: Performed By: #### U AMIC #### [facility] [address] [place] [address] Dr. Donis Mancini Clarity (U) CLEAR Normal CLEAR [facility] Comment on above: Performed By: #### U AMIC #### [facility] [address] [place] [address] Dr. Donis Mancini Color (U) LT. YELLOW Normal YELLOW [facility] Comment on above: Performed By: #### U AMIC #### [facility] [address] [place] [address] Dr. Donis Mancini Glucose Ql (U) Negative Normal NEGATIVE [facility] Comment on above: Performed By: #### U AMIC #### [facility] [address] [place] [address] Dr. Donis Mancini Hemoglobin Ql (U) Negative Normal NEGATIVE [facility] Comment on above: Performed By: #### U AMIC #### [facility] [address] [place] [address] Dr. Donis Mancini Ketones Ql (U) Negative Normal NEGATIVE [facility] Comment on above: Performed By: #### U AMIC #### [facility] [address] [place] [address] Dr. Donis Mancini LEUKOCYTES Negative Normal NEGATIVE [facility] Comment on above: Performed By: #### U AMIC #### [facility] [address] [place] [address] Dr. Donis Mancini Nitrite Ql (U) Negative Normal NEGATIVE [facility] Comment on above: Performed By: #### U AMIC #### [facility] [address] [address] [address] Donis Mancini pH (U) 7.0 [pH] Normal 5-9 [facility] Comment on above: Performed By: #### U AMIC #### [facility] [address] [address] [address] Donis Mancini SPEC GRAVITY <=1.005 Abnormal 1.005-<=1.02 5 [facility] Comment on above: Performed By: #### U AMIC #### [facility] [address] [address] [address] Donis Mancini UA PROTEIN Negative Normal NEGATIVE/ TRACE [facility] Comment on above: Performed By: #### U AMIC #### [facility] [address] [address] [address] Donis Mancini UR MICRO IND NOT INDICATED Normal [facility] Comment on above: Performed By: #### U AMIC #### [facility] [address] [address] [address] Donis Mancini Urobilinogen Qn (U) 0.2 {Sarah'U}/dL Normal 0.2 - 1. 0 [facility] Comment on above: Performed By: #### U AMIC #### [facility] [address] [address] [address] Donis Mancini URIC ACID SERUMon 08-07-2022 Urate [Mass/Vol] 3.8 mg/dL Normal 2.6-6.0 [facility] Comment on above: Performed By: #### C MP, URIC, LDH ####[facility] [address] [address]Dr. Donis Mancini URINE T PROTEIN CREAT RATIOo n 08-07-2022 UR TOTAL PROTEIN <6.0 Normal <=12.0 [facility] Comment on above: Performed By: #### C T/NGNA #### [facility] [address] [address] [address] Donis Mancini URINE CREAT 13.45 mg/dL Critically low 20.00-300.00 [facility] Comment on above: Performed By: #### C T/NGNA #### [facility] [address] [place] [address] Dr. Donis Mancini US PREG BIOPHY W [...] STERN Date: 2022-08-01 08:31 Normal [facility] CHLAMYDIA/GONOCOCCUS INESSA (SW AB/URINE/PAPon 07-31-2022 Chlamydia trachomatis, INESSA Negative Normal Negative [facility] Comment on above: Performed By: #### C T/NGNA #### [facility] [address] [place] [address] Dr. Donis Mancini Neisseria gonorrhoeae, INESSA Negative Normal Negative [facility] Comment on above: Performed By: #### C T/NGNA #### [facility] [address] [place] [address] Dr. Donis Mancini VAGINITIS/VAGINOSIS DNA PROB Domenic 07-31-2022 Simeon species Negative Normal Negative [facility] Comment on above: Performed By: #### V AGINT ####[facility] [address] [address]Dr. Donis Mancini Gardnerella vaginalis Negative Normal Negative [facility] Comment on above: Performed By: #### V AGINT ####[facility] [address] [address]DrGene Mancini Trichomonas vaginalis Negative Normal Negative [facility] Comment on above: Performed By: #### V AGINT ####[facility] [address] [place], [place] [address]TaDr. Donis Mancini GROUP B STREP CULTUREon S. agalactiae Ag Ql (Unsp spec) Culture Observations: NEGATIVE FOR GROUP B STREPTOCOCCUS. Normal [facility] Comment on above: Performed By: #### G BSCX #### [facility] [address] [place], [place] [address] Dr. Donis Mancini US PREG BIOPHY W [...] COCO STERN Date: 2022-07-25 09:41 Normal [facility] US PREG GROWTHon 07-11-2022 US PREG GROWTH [...] ESTEFANY BENNETT Date: 2022-07-11 19:28 Normal [facility] Covid-19 PCR (CVDTB)on 06-26 SARS-CoV-2 (COVID-19) RNA INESSA+probe Ql (Unsp spec) Not detected Normal NOT DETECTED [facility] Comment on above: Result Comment: When diagnostic [...] for this test is supported by the [place] of [employer] and Human Service's declaration that [...] used). Performed By: #### C T/NGNA #### [facility] [address] [place] [address] Dr. Donis Mancini GTT 3 HR PREGon 06-03-2022 Glucose [Mass/Vol] 94 mg/dL Normal 74-106 [facility] Comment on above: Performed By: #### U AMIC #### [facility] [address] [place] [address] Dr. Donis Mancini Glucose [Mass/Vol] 147 mg/dL Normal [facility] Comment on above: Performed By: #### U AMIC #### [facility] [address] [place] [address] Dr. Donis Mancini Glucose [Mass/Vol] 159 mg/dL Normal [facility] Comment on above: Performed By: #### U AMIC #### [facility] [address] [place] [address] Dr. Donis Mancini Glucose [Mass/Vol] 151 mg/dL Normal [facility] Comment on above: Performed By: #### U AMIC #### [facility] [address] [place] [address] Dr. Donis Mancini GLUCOSE - 1HRon 05-21-2022 Glucose [Mass/Vol] 141 mg/dL Critically high 74-106 [facility] Comment on above: Performed By: #### U AMIC #### [facility] [address] [place] [address] Dr. Donis Mancini HEMOGRAM AND PLATELon 2021 Hematocrit (Bld) [Volume fraction] 39.1 % Normal 36.0-48.0 [facility] Comment on above: Performed By: #### U AMIC #### [facility] [address] [place] [address] Dr. Donis Mancini Hemoglobin (Bld) [Mass/Vol] 13.1 g/dL Normal 12.0-16.0 [facility] Comment on above: Performed By: #### U AMIC #### [facility] [address] [place] [address] Dr. Donis Mancini MCH (RBC) [Entitic mass] 32.3 pg Normal 26.7-34.0 [facility] Comment on above: Performed By: #### U AMIC #### [facility] [address] [place] [address] Dr. Donis Mancini MCHC (RBC) [Mass/Vol] 33.5 g/dL Normal 29.9-35.2 [facility] Comment on above: Performed By: #### U AMIC #### [facility] [address] [place] [address] Dr. Donis Mancini MCV (RBC) [Entitic vol] 96.5 fL Normal 81.0-99.0 [facility] Comment on above: Performed By: #### U AMIC #### [facility] [address] [place] [address] Dr. Donis Mancini PLT 220 103/ul Normal 150-450 [facility] Comment on above: Performed By: #### U AMIC #### [facility] [address] [place] [address] Dr. Donis Mancini RBC 4.05 106/ul Critically low 4.20-5.40 [facility] Comment on above: Performed By: #### U AMIC #### [facility] [id number] Donis Mancini WBC 12.8 103/ul Critically high 4.0-11.0 [facility] Comment on above: Performed By: #### U AMIC #### [facility] [address] [address] [address] Donis Mancini US PREG BIOPHYSICAL NO [...] ESTEFANY BENNETT Date: 2022-05-11 06:25 Normal [facility] CULTURE URINEon 05-10-2022 CULTURE URINE Culture Observations: MODERATE GROWTH OF MIXED GENITAL RAMBO. NO POTENTIAL PATHOGENS SEEN. Normal [facility] Comment on above: Performed By: #### U RCX #### [facility] [address] [address] [address] Donis Mancini UA RANDOM W/MICROSCOPICon BACTERIA LARGE Abnormal NONE SEEN [facility] Comment on above: Performed By: #### U AMIC ####[facility] [address] [address]Dr. Donis Mancini Bilirubin Ql (U) Negative Normal NEGATIVE [facility] Comment on above: Performed By: #### U AMIC ####[facility] [address] [address]Dr. Donis Mancini CAST NONE SEEN Normal NONE SEEN [facility] Comment on above: Performed By: #### U AMIC ####[facility] [address] [address]Dr. Donis Mancini Clarity (U) CLEAR Normal CLEAR [facility] Comment on above: Performed By: #### U AMIC ####[facility] [address] [place], [place] [address]Dr. Donis Mancini Color (U) YELLOW Normal YELLOW [facility] Comment on above: Performed By: #### U AMIC ####[facility] [address] [address]Dr. Donis Mancini Crystals LM Nom (Urine sed) NONE SEEN Normal NONE SEEN [facility] Comment on above: Performed By: #### U AMIC ####[facility] [address] [place], [place] [address]Dr. Donis Mancini Epithelial cells LM Ql (Urine sed) MODERATE Abnormal NONE SEEN /RARE [facility] Comment on above: Performed By: #### U AMIC ####[facility] [address] [place], [place] [address]Dr. Donis Mancini Glucose Ql (U) 250 mg/dl Abnormal NEGATIVE [facility] Comment on above: Performed By: #### U AMIC ####[facility] [address] [place], [place] [address]Dr. Donis Mancini Hemoglobin Ql (U) TRACE-INTACT Abnormal NEGATIVE [facility] Comment on above: Performed By: #### U AMIC ####[facility] [address] [place], [place] [address]Dr. Donis Mancini Ketones Ql (U) Negative Normal NEGATIVE [facility] Comment on above: Performed By: #### U AMIC ####[facility] [address] [place], [place] [address]Dr. Donis Mancini LEUKOCYTES LARGE Abnormal NEGATIVE [facility] Comment on above: Performed By: #### U AMIC ####[facility] [address]cer[address] [place], [place] [address]Dr. Donis Mancini MUCOUS NONE SEEN Normal NONE SEEN [facility] Comment on above: Performed By: #### U AMIC ####[facility] [address] [place], [place] [address]Dr. Donis Mancini Nitrite Ql (U) Negative Normal NEGATIVE [facility] Comment on above: Performed By: #### U AMIC ####[facility] [address] [address]Dr. Donis Mancini pH (U) 6.0 [pH] Normal 5-9 [facility] Comment on above: Performed By: #### U AMIC ####[facility] [address] [address]Dr. Donis Mancini RBC 2-5 Abnormal 0-2 [facility] Comment on above: Performed By: #### U AMIC ####[facility] [address] [id number]. Donis Mancini SPEC GRAVITY <=1.005 Abnormal 1.005-<=1.02 5 [facility] Comment on above: Performed By: #### U AMIC ####[facility] [address] [place], [place] [address]Dr. Donis Mancini UA PROTEIN Negative Normal NEGATIVE/ TRACE [facility] Comment on above: Performed By: #### U AMIC ####[facility] [address] [id number]. Donis Mancini Urobilinogen Qn (U) 0.2 {Sarah'U}/dL Normal 0.2 - 1. 0 [facility] Comment on above: Performed By: #### U AMIC ####[facility] [address] [place], [place] [address]Dr. Donis Mancini WBC 10-20 Abnormal NONE SEEN [facility] Comment on above: Performed By: #### U AMIC ####[facility] [address] [id number]. Donis Mancini CULTURE URINEon 04-27-2022 CULTURE URINE Culture Observations: LIGHT GROWTH OF MIXED GENITAL RAMBO. NO POTENTIAL PATHOGENS SEEN. Normal [facility] Comment on above: Performed By: #### U RCX ####[facility] [address] [address]Dr. 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 Donis Mancini Clarity (U) CLEAR Normal CLEAR [facility] Comment on above: Performed By: #### U ACSIND, UMICRO ####[facility] [address] [address]Dr. Donis Mancini Color (U) LT. YELLOW Normal YELLOW [facility] Comment on above: Performed By: #### U ACSIND, UMICRO ####[facility] [address] [address]Dr. Donis Mancini Glucose Ql (U) Negative Normal NEGATIVE [facility] Comment on above: Performed By: #### U ACSIND, UMICRO ####[facility] [address] [address]Dr. Donis Mancini Hemoglobin Ql (U) Negative Normal NEGATIVE [facility] Comment on above: Performed By: #### U ACSWENDY, ICRO ####[facility] [address] [address]Dr. Donis Mancini Ketones Ql (U) Negative Normal NEGATIVE [facility] Comment on above: Performed By: #### U ACSWENDY, ICRO ####[facility] [address] [place] [address]Dr. Donis Mancini LEUKOCYTES SMALL Abnormal NEGATIVE [facility] Comment on above: Performed By: #### U ACSWENDY, UMICRO ####[facility] [address] [address]Dr. Donis Mancini Nitrite Ql (U) Negative Normal NEGATIVE [facility] Comment on above: Performed By: #### U ACSWENDY, ICRO ####[facility] [address] [place] [address]Dr. Donis Mancini pH (U) 7.0 [pH] Normal 5-9 [facility] Comment on above: Performed By: #### U ACSIND, UMICRO ####[facility] [address] [place], [place] [address]Dr. Donis Mancini SPEC GRAVITY 1.015 Normal 1.005-<=1.02 5 [facility] Comment on above: Performed By: #### NEFTALY MONIQUEICRO ####[facility] [address] [place], [place] [address]Dr. Donis Mancini UA PROTEIN Negative Normal NEGATIVE/ TRACE [facility] Comment on above: Performed By: #### NEFTALY MONIQUEICRO ####[facility] [address] [place], [place] [address]Dr. Donis Mancini UR MICRO IND INDICATED Normal [facility] Comment on above: Performed By: #### U LORETTA DAMONRO ####[facility] [address] [place], [place] [address]Dr. Donis Mancini Urobilinogen Qn (U) 0.2 {Sarah'U}/dL Normal 0.2 - 1. 0 [facility] Comment on above: Performed By: #### NEFTALY MONIQUEICRO ####[facility] [address] [place], [place] [address]Dr. Donis Mancini URINE MICROSCOPIC ONLYon BACTERIA MODERATE Abnormal NONE SEEN [facility] Comment on above: Performed By: #### LORETTA MONIQUERO ####[facility] [address] [place], [place] [address]Dr. Donis Mancini Bacteria identified Cx Nom (U) INDICATED Normal [facility] Comment on above: Performed By: #### U LORETTA DAMONRO ####[facility] [address]zu[address] [place], [place] [address]Dr. Donis Mancini CAST NONE SEEN Normal NONE SEEN [facility] Comment on above: Performed By: #### U NEFTALY DAMNOICRO ####[facility] [address]perp[address] [place], [place] [address]Dr. Donis Mancini Crystals LM Nom (Urine sed) NONE SEEN Normal NONE SEEN [facility] Comment on above: Performed By: #### U NELSON UMICRO ####[facility] [address] [place], [place] [address]Dr. Donis Mancini Epithelial cells LM Ql (Urine sed) MODERATE Abnormal NONE SEEN /RARE [facility] Comment on above: Performed By: #### U ACSWENDY, UMICRO ####[facility] [address] [place], [place] [address]Tk. Donis Mancini MUCOUS NONE SEEN Normal NONE SEEN [facility] Comment on above: Performed By: #### U ACSIND, UMICRO ####[facility] [address] [place] [phone]. Donis Mancini RBC NONE SEEN Abnormal 0-2 [facility] Comment on above: Performed By: #### U ACSWENDY, UMICRO ####[facility] [address] [phone]. Laceyjavi Mancini WBC 2-5 Abnormal NONE SEEN [facility] Comment on above: Performed By: #### U ACSIND, UMICRO ####[facility] [address] [phone]. Donis Mancini US KIDNEYSon 04-27-2022 US KIDNEYS [...] ANDREAS AN Date: 2022-04-27 17:48 Normal [facility] CULTURE URINEon 04-16-2022 CULTURE URINE Isolate 1 [...] Trimethoprim/Sulfame thoxazole <=20 S F Normal [facility] Comment on above: Performed By: #### U RCX #### [facility] [address] [place] [address] Dr. Donis Mancini US PREG ANATOMY SINGLEon [...] ESTEFANY BENNETT Date: 2022-04-12 22:22 Normal [facility] UA RANDOM W/MICROSCOPICon BACTERIA SMALL Abnormal NONE SEEN [facility] Comment on above: Performed By: #### U AMIC #### [facility] [address] [place] [address] Dr. Donis Mancini Bilirubin Ql (U) Negative Normal NEGATIVE [facility] Comment on above: Performed By: #### U AMIC #### [facility] [address] [address] [address] Donis Mancini CAST NONE SEEN Normal NONE SEEN [facility] Comment on above: Performed By: #### U AMIC #### [facility] [address] [place] [address] Dr. Donis Mancini Clarity (U) CLEAR Normal CLEAR [facility] Comment on above: Performed By: #### U AMIC #### [facility] [address] [address] [address] Donis Mancini Color (U) LT. YELLOW Normal YELLOW [facility] Comment on above: Performed By: #### U AMIC #### [facility] [address] [address] [address] Donis Mancini Crystals LM Nom (Urine sed) NONE SEEN Normal NONE SEEN [facility] Comment on above: Performed By: #### U AMIC #### [facility] [address] [place] [address] Dr. Donis Mancini Epithelial cells LM Ql (Urine sed) FEW Abnormal NONE SEEN /RARE [facility] Comment on above: Performed By: #### U AMIC #### [facility] [address] [address] [address] Donis Mancini Glucose Ql (U) Negative Normal NEGATIVE [facility] Comment on above: Performed By: #### U AMIC #### [facility] [address] [place] [address] Dr. Donis Mancini Hemoglobin Ql (U) Negative Normal NEGATIVE [facility] Comment on above: Performed By: #### U AMIC #### [facility] [address] [address] [address] Donis Mancini Ketones Ql (U) Negative Normal NEGATIVE [facility] Comment on above: Performed By: #### U AMIC #### [facility] [address] [address] [address] Donis Mancini LEUKOCYTES LARGE Abnormal NEGATIVE [facility] Comment on above: Performed By: #### U AMIC #### [facility] [address] [address] [address] Donis Mancini MUCOUS NONE SEEN Normal NONE SEEN [facility] Comment on above: Performed By: #### U AMIC #### [facility] [address] [address] [address] Donis Mancini Nitrite Ql (U) Negative Normal NEGATIVE [facility] Comment on above: Performed By: #### U AMIC #### [facility] [address] [place] [address] Dr. Donis Mancini pH (U) 5.5 [pH] Normal 5-9 [facility] Comment on above: Performed By: #### U AMIC #### [facility] [address] [place] [address] Dr. Donis Mancini RBC 0-2 Normal 0-2 [facility] Comment on above: Performed By: #### U AMIC #### [facility] [address] [place] [address] Dr. Donis Mancini SPEC GRAVITY <=1.005 Abnormal 1.005-<=1.02 5 [facility] Comment on above: Performed By: #### U AMIC #### [facility] [address] [place] [address] Dr. Donis Mancini UA PROTEIN Negative Normal NEGATIVE/ TRACE [facility] Comment on above: Performed By: #### U AMIC #### [facility] [address] [place] [address] Dr. Donis Mancini Urobilinogen Qn (U) 0.2 {Sarah'U}/dL Normal 0.2 - 1. 0 [facility] Comment on above: Performed By: #### U AMIC #### [facility] [address] [address] [address] Donsi Mancini WBC 5-10 Abnormal NONE SEEN [facility] Comment on above: Performed By: #### U AMIC #### [facility] [id number] Donis Mancini HEP B SURFACE ANTIGEN SCREEN on 01-23-2022 HBsAg Screen Negative Normal Negative [facility] Comment on above: Performed By: #### U AMIC #### [facility] [address] [address] [address] Donis Mancini HEPATITIS C VIRUS AB W/ REFL EX QUANTon 01-23-2022 HCV AB 0.1 s/co ratio Normal 0.0-0.9 [facility] Comment on above: Performed By: #### H CVPCRR ####[facility] [id number] [id number] Mancini Interpretation: Comment Normal [facility] Comment on above: Result Comment: Nega tive Not infected with HCV, unless recent infection is suspected or other evidence exists to indicate HCV infection. Performed By: #### H CVPCRR ####[facility] [id number] [id number]. Donis Mancini HIV 1 AND 2 WITH REFLEXon HIV Screen 4th Generation wRfx Non-Reactive Normal Non Reactive [facility] Comment on above: Result Comment: HIV Negative HIV-1/HIV-2 antibodies and HIV-1 p24 antigen were NOT detected. There is no laboratory evidence of HIV infection. Performed By: #### H IV12 ####[facility] [address] [id number] Mancini RPR QUANTon 01-23-2022 Rapid Plasma Reagin, Quant Non-Reactive Normal NonRea<1:1 [facility] Comment on above: Result Comment: Plea Note: This test does not meet current guidelines for screening and diagnosis of syphilis. This test is intended for following treatment response in patients being treated for syphilis infection. To screen for syphilis infection, a reflex cascade that includes both RPR and a treponema-specific assay should be utilized, such as Treponema pallidum (Syphilis) Screening [place] (613228) or Rapid Plasma Reagin (RPR) Test With Reflex to Quantitative RPR and Confirmatory Treponema pallidum Antibodies (849397). Performed By: #### R PRQ ####[facility] [address] [address]Dr. Donis Mancini RUBELLA AB IGGon 01-23-2022 Rubella Antibodies, IgG 1.60 index Normal Immune >0.99 [facility] Comment on above: Result Comment: Non- immune <0.90 Equivocal 0.90 - 0.99 Immune >0.99 Performed By: #### U AMIC #### [facility] [address] [place] [address] Dr. Donis Mancini CBC AUTO DIFFon 01-22-2022 BASO # 0.1 103/ul Normal 0.0-0.1 [facility] Comment on above: Performed By: #### U AMIC #### [facility] [address] [place] [address] Dr. Donis Mancini Basophils/100 WBC (Bld) 0.5 % Normal 0.2-2.0 [facility] Comment on above: Performed By: #### U AMIC #### [facility] [address] [place] [address] Dr. Donis Mancini EO # 0.6 103/ul Normal 0.0-0.7 [facility] Comment on above: Performed By: #### U AMIC #### [facility] [address] [place] [address] Dr. Donis Mancini Eosinophils/100 WBC (Bld) 5.1 % Normal 0.9-7.0 [facility] Comment on above: Performed By: #### U AMIC #### [facility] [address] [place] [address] Dr. Donis Mancini Erythrocyte distribution width (RBC) [Ratio] 12.0 % Normal 11.0-15.0 [facility] Comment on above: Performed By: #### U AMIC #### [facility] [address] [place] [address] Dr. Donis Mancini Hematocrit (Bld) [Volume fraction] 45.8 % Normal 36.0-48.0 [facility] Comment on above: Performed By: #### U AMIC #### [facility] [address] [address] [address] Donsi Mancini Hemoglobin (Bld) [Mass/Vol] 15.3 g/dL Normal 12.0-16.0 [facility] Comment on above: Performed By: #### U AMIC #### [facility] [address] [address] [address] Donis Mancini IG # 0.03 10e3/ul Normal 0.00-0.03 [facility] Comment on above: Performed By: #### U AMIC #### [facility] [address] [place] [address] Dr. Donis Mancini IG % 0.3 % Normal 0.0-0.5 [facility] Comment on above: Performed By: #### U AMIC #### [facility] [address] [address] [address] Donis Mancini LYMPH # 1.7 103/ul Normal 1.2-3.8 [facility] Comment on above: Performed By: #### U AMIC #### [facility] [address] [place] [address] Dr. Donis Mancini Lymphocytes/100 WBC (Bld) 15.9 % Critically low 20.5-60.0 [facility] Comment on above: Performed By: #### U AMIC #### [facility] [address] [address] [address] Donis Mancini MANUAL DIFF REQ NO Normal [facility] Comment on above: Performed By: #### U AMIC #### [facility] [address] [address] [address] Donis Mancini MCH (RBC) [Entitic mass] 31.5 pg Normal 26.7-34.0 [facility] Comment on above: Performed By: #### U AMIC #### [facility] [address] [address] [address] Donis Mancini MCHC (RBC) [Mass/Vol] 33.4 g/dL Normal 29.9-35.2 [facility] Comment on above: Performed By: #### U AMIC #### [facility] [address] [place] [address] Dr. Donis Mancini MCV (RBC) [Entitic vol] 94.2 fL Normal 81.0-99.0 [facility] Comment on above: Performed By: #### U AMIC #### [facility] [address] [place] [address] Dr. Donis Mancini MONO # 0.6 103/ul Normal 0.3-0.8 [facility] Comment on above: Performed By: #### U AMIC #### [facility] [address] [place] [address] Dr. Donis Mancini Monocytes/100 WBC (Bld) 5.8 % Normal 1.7-12.0 [facility] Comment on above: Performed By: #### U AMIC #### [facility] [address] [place] [address] Dr. Donis Mancini NEUT # 7.8 103/ul Critically high 1.4-6.5 [facility] Comment on above: Performed By: #### U AMIC #### [facility] [address] [place] [address] Dr. Donis Mancini Neutrophils/100 WBC (Bld) 72.4 % Normal 43.0-75.0 [facility] Comment on above: Performed By: #### U AMIC #### [facility] [address] [place] [address] Dr. Donis Mancini Platelet mean volume (Bld) [Entitic vol] 9.9 fL Normal 9.5-13.5 [facility] Comment on above: Performed By: #### U AMIC #### [facility] [address] [place] [address] Dr. Donis Mancini PLT 281 103/ul Normal 150-450 [facility] Comment on above: Performed By: #### U AMIC #### [facility] [address] [place] [address] Dr. Donis Mancini RBC 4.86 106/ul Normal 4.20-5.40 [facility] Comment on above: Performed By: #### U AMIC #### [facility] [address] [address] [address] Donis Mancini WBC 10.8 103/ul Normal 4.0-11.0 [facility] Comment on above: Performed By: #### U AMIC #### [facility] [address] [address] [address] Donis Mancini CULTURE URINEon 01-22-2022 CULTURE URINE Culture Observations: LIGHT GROWTH OF MIXED GENITAL RAMBO. NO POTENTIAL PATHOGENS SEEN. Normal [facility] Comment on above: Performed By: #### U RCX #### [facility] [address] [address] [address] Donis Mancini GLYCOHEMOGLOBIN A1Con 2021 ADA RECOMMENDATION SEE BELOW Normal [facility] Comment on above: Result Comment: ADA RECOMMENDED LIMIT 4.0 - 6.0 ADA THERAPEUTIC TARGET < 7.0 ACTION SUGGESTED > 7.0 Performed By: #### A 1C ####[facility] [address] [address]Dr. Donis Mancini Glucose [Mass/Vol] 100 mg/dL Normal [facility] Comment on above: Performed By: #### A 1C ####[facility] [address] [id number]. Donis Mancini HbA1c (Bld) [Mass fraction] 5.1 % Normal 4.5-6.2 [facility] Comment on above: Performed By: #### A 1C ####[facility] [address] [id number]. Donis Mancini SEAN BOX TEST PT SEND OUTo n 01-22-2022 SENT TO REF LAB 01/22/2022 Normal [facility] Comment on above: Performed By: #### N BOX ####[facility] [address] [address]Dr. Donis Mancini TYPE AND SCREENon 01-22-2022 TYPE AND SCREEN Negative Normal [facility] Comment on above: Performed By: #### T NS #### [facility] [id number] Donis Mancini US PREG TVon 01-17-2022 [...] COCO STERN Date: 2022-01-17 09:34 Normal [facility] Provider Letteron 04-06-2021 Provider Letter April 06, 2021 Dear Vimal, We have been trying to reach you with no success. It is important that you return our call regarding your appointment upon receiving this letter. Also, at the time of your call, please provide us with your current information. Thank you for your prompt attention to this matter. Sincerely, [facility] [address] [place] [id number] [facility] Ambulatory Clinical Summaryo n 03-10-2021 Ambulatory Clinical Summary {[id number]}CD:[id number] Normal [facility] Ambulatory Clinical Summaryo n 03-05-2021 Ambulatory Clinical Summary {[id number]}CD:[id number] Normal [facility] Gynecology Phone Visit- Tele [facility] 03-05-2021 Gynecology Phone Visit- Telehealth Chief Complaint [...] only communication with the patient located at [address] [place] [phone], with no one else. If it is [...] Ordered: Telephone Est 5 to 10 minutes [id number] Follow-up With When Contact Information Joycelyn RENNER In [address] [place] [address]- Additional Instructions: Problem List/Past Medical History Ongoing Contraception management Visit for routine stave cutter exam Historical Blood transfusion Lead poisoning Procedure/Surgical [...] hepatitis B adult vaccine 2001 Recorded Normal [facility] Comment on above: Result Comment: Elec tronically Signed By: Joycelyn RENNER\.br\Date and Time Signed: 03/05/21 16:35 EDT Ambulatory Clinical Summaryo n 03-04-2021 Ambulatory Clinical Summary {[id number]}CD:[id number] Normal [facility] Coding Summary.on 12-18-2020 Coding Summary. CODING DATE: 12/18/2020 FINAL [facility] STATUS: Home (Routine DC) PAYOR: Lory ADMIT [...] CphT Date Saved: 12/18/2020 12:44 pm Normal [facility] Physician Orderon 12-16-2020 Physician Order [id number] #[id number] Normal [facility] Rapid COVID Antigen (MC)on 12-16-2020 Rapid COV Int NEG Ctl Pass Normal [facility] Comment on above: Performed By: #### 2 [id number] #### [facility] [address] [place] [address] Rapid COV Int POS Ctl Pass Normal [facility] Comment on above: Performed By: #### 2 [id number] #### [facility] [address] [place] [address] SARS-CoV-2 (COVID-19) RNA INESSA+probe Ql (Unsp spec) Detected Abnormal Not Detected [facility] Comment on above: Result Comment: Left a message for callback. 12/16/2020 11:42:47 EDT Results faxed to infection control. The [employer] Veritor? System for Rapid Detection of SARS-CoV-2 [...] or revoked sooner. Performed By: #### 2 [id number] #### [facility] [address] [place] [address] Employed in Healthcare Unknown Normal [facility] Comment on above: Performed By: #### 2 [id number] #### [facility] [address] [place] [address] First Test Unknown [facility] Comment on above: Performed By: #### 2 [id number] #### [facility] [address] [place] [address] Hospitalized? NO Normal [facility] Comment on above: Performed By: #### 2 [id number] #### [facility] [address] [place] [address] ICU NO Normal [facility] Comment on above: Performed By: #### 2 [id number] #### [facility] [address] [place] [address] ? Unknown Normal [facility] Comment on above: Performed By: #### 2 [id number] #### [facility] [address] [place] [address] Resides in a Congregate Care Setting Unknown Normal [facility] Comment on above: Performed By: #### 2 [id number] #### [facility] [address] [place] [address] Symptomatic as defined by CDC YES Normal [facility] Comment on above: Performed By: #### 2 [id number] #### [facility] [address] [place] [address] Ambulatory Clinical Summaryo n 11-25-2020 Ambulatory Clinical Summary {[id number]}CD:[id number] Normal [facility] Vital Signs Date Time Vital Sign Value Performing Clinician Facility 05-14-2025 14:59-0400 Body mass index (BMI) [Ratio] 31.35 kg/m2 Jose Michael DO Work Phone: [facility] 05-14-2025 14:59-0400 Body weight 80.29 kg Jose Michael DO Work Phone: [facility] 05-14-2025 14:59-0400 Diastolic blood pressure 90 mm[Hg] Jose Michael DO Work Phone: [facility] 05-14-2025 14:59-0400 Systolic blood pressure 140 mm[Hg] Jose Michael DO Work Phone: [facility] 05-13-2025 16:11-0400 Body weight 79.83 kg Marjorie Rico RN Work Phone: [facility] 04-30-2025 11:52-0400 Body mass index (BMI) [Ratio] 31 kg/m2 Rossana BISWAS Work Phone: [facility] 04-30-2025 11:52-0400 Body weight 79.38 kg Rossana BISWAS Work Phone: [facility] 04-30-2025 11:52-0400 Diastolic blood pressure 94 mm[Hg] Rossana Scottey PA Work Phone: [facility] 04-30-2025 11:52-0400 Systolic blood pressure 140 mm[Hg] Rossana White [place] PA Work Phone: [facility] 04-11-2025 15:38-0400 Body mass index (BMI) [Ratio] 30.2 kg/m2 Rossana Rachel PA Work Phone: [facility] 04-11-2025 15:38-0400 Body weight 77.34 kg Rossana [place] PA Work Phone: [facility] 04-11-2025 15:38-0400 Diastolic blood pressure 100 mm[Hg] Rossana [place] PA Work Phone: [facility] 04-11-2025 15:38-0400 Systolic blood pressure 142 mm[Hg] Rossana White [place] PA Work Phone: [facility] 03-14-2025 11:36-0400 Body mass index (BMI) [Ratio] 29.23 kg/m2 Jose Michael DO Work Phone: [facility] 03-14-2025 11:36-0400 Body weight 74.84 kg Jose Michael DO Work Phone: [facility] 03-14-2025 11:36-0400 Diastolic blood pressure 76 mm[Hg] Jose Michael DO Work Phone: [facility] 03-14-2025 11:36-0400 Systolic blood pressure 112 mm[Hg] Jose Michael DO Work Phone: [facility] 02-20-2025 16:08-0400 Body mass index (BMI) [Ratio] 28.83 kg/m2 Rossana White Oak PA Work Phone: [facility] 02-20-2025 16:08-0400 Body weight 73.82 kg Rossana Rachel PA Work Phone: [facility] 02-20-2025 16:08-0400 Diastolic blood pressure 82 mm[Hg] Rossana Rachel PA Work Phone: [facility] 02-20-2025 16:08-0400 Systolic blood pressure 110 mm[Hg] Rossana BISWAS Work Phone: [facility] 01-14-2025 15:42-0400 Body mass index (BMI) [Ratio] 27.3 kg/m2 Jose Michael DO Work Phone: [facility] 01-14-2025 15:42-0400 Body weight 69.91 kg Jose Michael DO Work Phone: [facility] 01-14-2025 15:42-0400 Diastolic blood pressure 70 mm[Hg] Jose Michael DO Work Phone: [facility] 01-14-2025 15:42-0400 Systolic blood pressure 120 mm[Hg] Jose Michael DO Work Phone: [facility] 08-20-2024 10:55-0500 Body mass index (BMI) [Ratio] 25.93 kg/m2 Rossana BISWAS Work Phone: [facility] 08-20-2024 10:55-0500 Body weight 66.41 kg Rossana BISWAS Work Phone: [facility] 08-20-2024 10:55-0500 Diastolic blood pressure 70 mm[Hg] Rossana BISWAS Work Phone: [facility] 08-20-2024 10:55-0500 Systolic blood pressure 120 mm[Hg] Rossana BISWAS Work Phone: [facility] 08-06-2024 09:38-0500 Body mass index (BMI) [Ratio] 25.47 kg/m2 Jose Michael DO Work Phone: [facility] 08-06-2024 09:38-0500 Body weight 65.23 kg Jose Michael DO Work Phone: [facility] 08-06-2024 09:38-0500 Diastolic blood pressure 70 mm[Hg] Jose Michael DO Work Phone: [facility] 08-06-2024 09:38-0500 Systolic blood pressure 120 mm[Hg] Jose Rodriguez DO Work Phone: [facility] 06-29-2024 09:12-0400 Body mass index (BMI) [Ratio] 24.58 kg/m2 [facility] Nurse [facility] 06-29-2024 09:12-0400 Body weight 62.94 kg [facility] Nurse [facility] 06-29-2024 09:12-0400 Diastolic blood pressure 72 mm[Hg] [facility] Nurse [facility] 06-29-2024 09:12-0400 Systolic blood pressure 122 mm[Hg] [facility] Nurse [facility] 12-26-2022 13:45-0400 Body height 160.02 cm Jennifer Huston Other [facility] Other 12-26-2022 13:45-0400 Body mass index (BMI) [Ratio] 27.45 kg/m2 Jennifer Betzaida Other [facility] Other 12-26-2022 13:45-0400 Body temperature 97 [degF] Jennifer Betzaida Other [facility] Other 12-26-2022 13:45-0400 Body weight 70.31 kg Jennifer Betzaida Other [facility] Other 12-26-2022 13:45-0400 Diastolic blood pressure 89 mm[Hg] Jennifer Betzaida Other [facility] Other 12-26-2022 13:45-0400 Respiratory rate 18 /min Jennifer Betzaida Other [facility] Other 12-26-2022 13:45-0400 SaO2% (BldA) [Mass fraction] 100 % Jennifer Betzaida Other [facility] Other 12-26-2022 13:45-0400 Systolic blood pressure 135 mm[Hg] Jennifer Huston Other [facility] Other Encounters Encounter Date Encounter Type Care Provider Facility Start: 05-14-2025 End: 05-14-2025 ambulatory JOSE MICHAEL Not Available Start: 05-14-2025 End: 05-14-2025 flow sheet Jose Michael DO Work Phone: [facility] Comment on above: Third trimester preg alysa ([facility]); 30 weeks gestation of ([facility]); induced hypertension, antepartum ([facility]) Start: 05-14-2025 End: 05-14-2025 Bamboo flowsheet Jose Michael DO Work Phone: [facility] Start: 05-14-2025 End: 05-14-2025 Bamboo flowsheet Jose Michael DO Work Phone: [facility] Start: 05-13-2025 End: 05-13-2025 ambulatory Marjorie Rico RN Work Phone: [facility] Comment on above: Gestational diabetes mellitus (GDM) in third trimester, gestational diabetes method of control unspecified Start: 05-11-2025 End: 05-11-2025 Clinisync Result Encounter Rossana BISWAS Work Phone: [facility] Unsolicited Start: 05-11-2025 End: 05-11-2025 Clinisync Result Encounter Rossana BISWAS Work Phone: [facility] Unsolicited Start: 05-10-2025 End: 05-10-2025 Chart abstracting Scanning Provider External [facility] Start: 05-06-2025 End: 05-06-2025 Clinisync Result Encounter Rossana BISWAS Work Phone: [facility] Unsolicited Start: 05-06-2025 End: 05-06-2025 Clinisync Result Encounter Rossana BISWAS Work Phone: [facility] Unsolicited Start: 05-04-2025 End: 05-04-2025 Clinisync Result Encounter Rossana Rachel PA Work Phone: [facility] Unsolicited Start: 05-04-2025 End: 05-04-2025 Clinisync Result Encounter Rossana Ramos TRUE Work Phone: [facility] Unsolicited Start: 05-04-2025 End: 05-08-2025 Telephone encounter Jose Rodriguez DO Work Phone: [facility] Start: 04-30-2025 End: 04-30-2025 Bamboo flowsheet Rossana BISWAS Work Phone: [facility] Start: 04-30-2025 End: 04-30-2025 Bamboo flowsheet Rossana Rachel PA Work Phone: [facility] Start: 04-30-2025 End: 04-30-2025 ambulatory ROSSANA RAMOS Not Available Start: 04-30-2025 End: 04-30-2025 Patient encounter status Rossana BISWAS Work Phone: [facility] Work Phone: Start: 04-30-2025 End: 04-30-2025 flow sheet Rossana Rachel PA Work Phone: [facility] Comment on above: BP check; -induced hypertension in third trimester ([facility]); Gestational diabetes mellitus (GDM) in third trimester, gestational diabetes method of control unspecified ([facility]) Start: 04-27-2025 End: 04-27-2025 Clinisync Result Encounter Rossana BISWAS Work Phone: [facility] Unsolicited Start: 04-27-2025 End: 04-27-2025 Clinisync Result Encounter Rossana BISWAS Work Phone: [facility] Unsolicited Start: 04-25-2025 End: 04-25-2025 flow sheet Rossana BISWAS Work Phone: [facility] Comment on above: Second trimester pre gnancy ([facility]); 27 weeks gestation of ([facility]); induced hypertension, antepartum ([facility]) Start: 04-25-2025 End: 04-25-2025 ambulatory ROSSANA RAMOS Not Available Start: 04-25-2025 End: 04-25-2025 Bamboo flowsheet Rossana BISWAS Work Phone: [facility] Start: 04-25-2025 End: 04-25-2025 Bamboo flowsheet Rossana BISWAS Work Phone: [facility] Start: 04-11-2025 End: 04-11-2025 ambulatory ROSSANA RAMOS Not Available Start: 04-11-2025 End: 04-11-2025 flow sheet Rossana BISWAS Work Phone: [facility] Comment on above: Second trimester pre gnancy ([facility]); 25 weeks gestation of ([facility]); Diabetes mellitus screening; Elevated BP without [...] OB Start: 03-14-2025 End: 03-14-2025 ambulatory JOSE DCO Not Available Start: 03-14-2025 End: 03-14-2025 flow sheet Jose Michael DO Work Phone: [facility] Comment on above: Second trimester pre gnancy ([facility]); 21 weeks gestation of ([facility]) Start: 03-08-2025 End: 03-08-2025 Clinisync Result Encounter Jose Michael DO Work Phone: [facility] Unsolicited Start: 03-08-2025 End: 03-08-2025 Clinisync Result Encounter Jose Michael DO Work Phone: [facility] Unsolicited Start: 02-20-2025 End: 02-20-2025 Patient encounter procedure Rossana BISWAS Work Phone: [facility] Start: 02-20-2025 End: 02-20-2025 flow sheet Rossana BISWAS Work Phone: [facility] Comment on above: Screening, , for anatomic survey; Well woman exam with routine gynecological exam; STD exposure; Second trimester ; 18 weeks gestation of ; Urinary frequency Start: 02-20-2025 End: 02-20-2025 ambulatory ROSSANA RAMOS Not Available Start: 02-20-2025 End: 02-20-2025 Bamboo [...] Start: 08-20-2024 End: 08-20-2024 Bamboo flowsheet Rossana Ramos PA Work Phone: [facility] Start: 08-20-2024 End: 08-20-2024 Bamboo flowsheet Rossana BISWAS Work Phone: [facility] Start: 08-20-2024 End: 08-20-2024 ambulatory ROSSANA RAMOS Not Available Start: 08-20-2024 End: 08-20-2024 Postop [...] Start: 08-10-2024 End: 08-10-2024 ambulatory PHYSICIAN NO [facility] Work Phone: Start: 08-10-2024 End: 08-10-2024 Departed Referred PHYSICIAN NO [facility] Start: 08-06-2024 End: 08-06-2024 Bamboo flowsheet [...] 12-26-2022 End: 12-26-2022 ambulatory Jennifer Huston Other [facility] [employer] Other Start: 12-26-2022 End: 12-26-2022 Patient encounter procedure [employer] [facility] Jennifer Huston Work Phone: [facility] [...] Date Procedure Procedure Detail Performing Clinician Start: 05-13-2025 Glucose quantitative blood xcpt reagent strip Wendy Miranda MD Work Phone: Start: 05-11-2025 OB BPP W NON-STRESS Rossana BISWAS Work Phone: Start: 05-06-2025 TBH TOTAL PROTEIN 24 HOUR URINE Rossana BISWAS Work Phone: Start: 05-04-2025 Glucose quantitative blood xcpt reagent strip Not In System Ref Prov Start: 05-04-2025 SECOND HOUR GLUCOSE TOLERANCE 100 GM LOAD Not In System Ref Prov Start: 05-04-2025 OB BPP W NON-STRESS Rossana BISWAS Work Phone: Start: 05-04-2025 US OB GROWTH Rossana BISWAS Work Phone: Start: 05-04-2025 ALL CBC WITH AUTO DIFF Rossana BISWAS Work Phone: Start: 04-30-2025 Urnls dip stick/tabl et rgnt non-auto w/o micrscp Jose Michael DO Work Phone: Start: 04-27-2025 GLU 1H [...] Start: 12-26-2022 Plain X-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 hand [employer] Jennifer Huston Work Phone: Start: 11-02-2022 Cytp [...] malign ant neoplasm of cervix Pap Smear [facility] Start: 06-04-2025 End: 06-04-2025 Patient encounter procedure 06/04/2025 1:00 PM EDT Appointment [facility] - Ultrasound [address] [facility] [phone] Jsoe Rodriguez R, DO [address] [place], [place] [id number] [facility] - Ultrasound Start: 05-27-2025 Influenza vaccination N [facility] Start: 05-22-2025 End: 05-22-2025 Patient encounter procedure 05/22/2025 2:40 PM EDT Routine [facility] [address] [place] [phone] Jose Rodriguez, DO [address] [place] [place] [address] [facility] Start: 05-14-2025 End: 05-14-2025 Patient encounter procedure 05/14/2025 2:40 PM EDT Routine [facility] [address] [place] [phone] Jose Rodriguez, [address] [place] [address] [facility] Start: 05-14-2025 End: 05-14-2026 Alanine aminotransferase [Enzymatic activity/volume] in Serum or Plasma ALT Lab Routine induced hypertension, antepartum ([facility]) Expected: 05/14/2025 (Approximate), Expires: 05/14/2026 [facility] Comment on above: Expected: 05/14/2025 (Approximate), Expires: 05/14/2026 Start: 05-14-2025 End: 05-14-2026 Aspartate aminotransferase [Enzymatic activity/volume] in Serum or Plasma AST Lab Routine induced hypertension, antepartum (HHS-HCC) Expected: 05/14/2025 (Approximate), Expires: 05/14/2026 [facility] Comment on above: Expected: 05/14/2025 (Approximate), Expires: 05/14/2026 Start: 05-14-2025 End: 05-14-2026 CBC W Auto Differential panel - Blood CBC and differential Lab Routine induced hypertension, antepartum (HHS-HCC) Expected: 05/14/2025 (Approximate), Expires: 05/14/2026 [facility] Comment on above: Expected: 05/14/2025 (Approximate), Expires: 05/14/2026 Start: 05-14-2025 End: 05-14-2026 Creatinine [Mass/volume] in Serum or Plasma Creatinine Lab Routine induced hypertension, antepartum ([facility]HS-HCC) Expected: 05/14/2025 (Approximate), Expires: 05/14/2026 [facility] Work Phone: Comment on above: Expected: 05/14/2025 (Approximate), Expires: 05/14/2026 Start: 05-14-2025 End: 05-14-2026 Lactate dehydrogenase [Enzymatic activity/volume] in Serum or Plasma by Lactate to pyruvate reaction Lactate dehydrogenase Lab Routine induced hypertension, antepartum (HHS-HCC) Expected: 05/14/2025, Expires: 05/14/2026 [facility] Comment on above: Expected: 05/14/2025 , Expires: 05/14/2026 Start: 05-14-2025 End: 05-14-2026 Protein, urine, 24 hour Protein, urine, 24 hour Lab Routine induced hypertension, antepartum ([facility]HS-HCC) Expected: 05/14/2025 (Approximate), Expires: 05/14/2026 [facility] Comment on above: Expected: 05/14/2025 (Approximate), Expires: 05/14/2026 Start: 05-14-2025 End: 05-14-2026 Pt and ptt Pt and ptt Lab Routine induced hypertension, antepartum (HHS-HCC) Expected: 05/14/2025, Expires: 05/14/2026 [facility] Comment on above: Expected: 05/14/2025 , Expires: 05/14/2026 Start: 05-14-2025 End: 05-14-2026 Urate [Mass/volume] in Serum or Plasma Uric acid Lab Routine induced hypertension, antepartum (HHS-HCC) Expected: 05/14/2025 (Approximate), Expires: 05/14/2026 [facility] Comment on above: Expected: 05/14/2025 (Approximate), Expires: 05/14/2026 Start: 05-14-2025 End: 05-14-2026 Urea nitrogen [Mass/volume] in Serum or Plasma BUN Lab Routine induced hypertension, antepartum (HHS-HCC) Expected: 05/14/2025, Expires: 05/14/2026 [facility] Comment on above: Expected: 05/14/2025 , Expires: 05/14/2026 Start: 05-13-2025 End: 05-13-2025 ambulatory 05/13/2025 1:30 PM EDT Support Visit Maternal- Medicine at [facility] [address] [place] [address] Marjorie Rico RN [address], [address] [place] [address] Xenia Rayo, ALEC [address], [address] [place] [id number] [facility] at [facility] Start: 04-30-2025 End: 10-31-2025 US biophysical profile [...] control unspecified (HHS-HCC) Expected: 04/30/2025, Expires: 08/30/2025 [facility] Comment on above: Expected: 04/30/2025 , Expires: 08/30/2025 Start: 04-30-2025 End: 04-30-2025 Patient encounter procedure 04/30/2025 10:50 AM EDT Routine ARJUN PANG [address] [place] [phone] Rossana Ramos PA [address] [place] [address] ARJUN PANG Start: 04-25-2025 End: 04-25-2025 Patient encounter procedure [facility] Comment on above: Arrived Start: [...] antepartum (HHS-HCC) Expected: 04/25/2025 (Approximate), Expires: 04/25/2026 [facility] Comment on above: Expected: 04/25/2025 (Approximate), Expires: 04/25/2026 Start: 04-25-2025 End: 04-25-2026 Creatinine [Mass/volume] in Serum or Plasma Creatinine Lab Routine induced hypertension, antepartum (HHS-HCC) Expected: 04/25/2025 (Approximate), Expires: 04/25/2026 [facility] Work Phone: Comment on above: Expected: 04/25/2025 (Approximate), Expires: 04/25/2026 Start: 04-25-2025 End: 04-25-2026 Lactate dehydrogenase [Enzymatic activity/volume] in Serum or Plasma by Lactate to pyruvate reaction Lactate dehydrogenase Lab Routine induced hypertension, antepartum (HHS-HCC) Expected: 04/25/2025, Expires: 04/25/2026 [facility] Comment on above: Expected: 04/25/2025 , Expires: 04/25/2026 Start: 04-25-2025 End: 04-25-2026 Protein, urine, 24 hour Protein, urine, 24 hour Lab Routine induced hypertension, antepartum (HHS-HCC) Expected: 04/25/2025 (Approximate), Expires: 04/25/2026 [facility] Comment on above: Expected: 04/25/2025 (Approximate), Expires: 04/25/2026 Start: 04-25-2025 End: 04-25-2026 Pt and ptt Pt and ptt Lab Routine induced hypertension, antepartum (HHS-HCC) Expected: 04/25/2025, Expires: 04/25/2026 [facility] Comment on above: Expected: 04/25/2025 , Expires: 04/25/2026 Start: 04-25-2025 End: 04-25-2026 Urate [Mass/volume] in Serum or Plasma Uric acid Lab Routine induced hypertension, antepartum (HHS-HCC) Expected: 04/25/2025 (Approximate), Expires: 04/25/2026 [facility] Comment on above: Expected: 04/25/2025 (Approximate), Expires: 04/25/2026 Start: 04-25-2025 End: 04-25-2026 Urea nitrogen [Mass/volume] in Serum or Plasma BUN Lab Routine induced hypertension, antepartum ([facility]) Expected: 04/25/2025, Expires: 04/25/2026 [facility] Comment on above: Expected: 04/25/2025 , Expires: 04/25/2026 Start: 04-11-2025 End: 04-11-2025 Patient encounter procedure 04/11/2025 3:30 PM EDT Routine [facility] [address] [place] [address] Rossana Ramos PA [address] [place] [address] [facility] Start: 04-11-2025 End: 04-11-2026 CBC panel - Blood by Automated count CBC Lab Routine Diabetes mellitus screening Expected: 04/11/2025 (Approximate), Expires: 04/11/2026 [facility] Work Phone: Comment on above: Expected: 04/11/2025 (Approximate), Expires: 04/11/2026 Start: 04-11-2025 End: 04-11-2026 Measurement of glucose 1 hour after glucose challenge for glucose tolerance test Glucose tolerance, 1 hour Lab Routine Diabetes mellitus screening Expected: 04/11/2025 (Approximate), Expires: 04/11/2026 [facility] Comment on above: Expected: 04/11/2025 (Approximate), Expires: 04/11/2026 Start: 03-14-2025 End: 03-14-2025 Patient encounter procedure 03/14/2025 10:50 AM EDT Routine [facility] [address] [place] [address] Jose Rodriguez DO [address] [place], [place] [id number] [facility] Start: 02-20-2025 End: 02-20-2025 [...] Initial [facility] [address] [place] [phone] [facility] Start: 12-14-2024 End: 12-14-2024 Professional / ancillary services management 12/14/2024 8:30 AM EDT Ancillary Procedure [facility] [address] [place] [address] [facility] Start: 08-20-2024 End: 08-20-2024 Patient encounter procedure 08/20/2024 10:20 AM EST Office Visit [facility] [address] [place] [phone] Rossana Ramos PA [address] [place] [address] [facility] Start: 08-06-2024 End: 08-06-2024 Patient encounter procedure 08/06/2024 9:10 AM EST Routine [facility] [address] [place] [address] Jose Rodriguez, DO [address] [place] [place] [address] [facility] Start: 06-29-2024 End: 06-29-2025 ABO/Rh ABO/Rh Lab Routine Missed menses , unspecified gestational age Expected: 06/29/2024 (Approximate), Expires: 06/29/2025 [facility] Comment on above: Expected: 06/29/2024 (Approximate), Expires: 06/29/2025 Start: 06-29-2024 End: 06-29-2025 Blood type and Indirect antibody screen panel - Blood Type and screen Lab Routine Missed menses , unspecified gestational age Expected: 06/29/2024 (Approximate), Expires: 06/29/2025 [facility] Work Phone: Comment on above: Expected: 06/29/2024 (Approximate), Expires: 06/29/2025 Start: 06-29-2024 End: 06-29-2025 Drugs of abuse panel - Urine by Screen method Rapid drug screen, urine Lab Routine , unspecified gestational age Encounter for supervision of normal first in first trimester Expected: 06/29/2024 (Approximate), Expires: 06/29/2025 [facility] Comment on above: Expected: 06/29/2024 (Approximate), Expires: 06/29/2025 Start: 06-29-2024 End: 06-29-2025 US Pelvis transvaginal US OB transvaginal Imaging Routine Missed menses Expected: 06/29/2024 (Approximate), Expires: 06/29/2025 [facility] Comment on above: Expected: 06/29/2024 (Approximate), Expires: 06/29/2025 Start: 05-27-2024 Influenza vaccination Influenza Vacc ine (#1) [facility] Start: 05-01-2024 DTaP,Tdap and Td Vac cines (7 - Td or Tdap) DTaP,Tdap and Td Vaccines (7 - Td or Tdap) [facility] Start: 2020 DTaP,Tdap and Td Vac cines (1 - Tdap) DTaP,Tdap and Td Vaccines (1 - Tdap) [facility] Start: 2019 Adult BMI Screening Adult BMI Screen ing [facility] Start: 2013 Depression Screening Depression Scre ening [facility] Start: 2013 Tobacco Screening Tobacco Screening [facility] Bacteria identified in Urine by Culture Urine culture Microbiology Routine Missed menses Ordered: 06/29/2024 [facility] Comment on above: Ordered: 06/29/2024 Bacteria identified in Urine by Culture Urine culture Microbiology Routine Urinary frequency Ordered: 02/20/2025 [facility] Comment on above: Ordered: 02/20/2025 CBC W Auto Different ial panel - Blood CBC and differential Lab Routine Missed menses , unspecified gestational age Ordered: 06/29/2024 [facility] Comment on above: Ordered: 06/29/2024 CHLAMYDIA TRACHOMATI S (GENITO/STI) CHLAMYDIA TRACHOMATIS (GENITO/STI) Lab Routine STD exposure Ordered: 02/20/2025 [facility] Comment on above: Ordered: 02/20/2025 Cytology Cervical or vaginal smear or scraping study Pap Smear Pathology and Cytology Routine Well woman exam with routine gynecological exam Ordered: 02/20/2025 [facility] Comment on above: Ordered: 02/20/2025 Hemoglobin A1c/Hemoglobin.total in Blood Hemoglobin A1c Lab Routine Missed menses , unspecified gestational age Ordered: 06/29/2024 [facility] Comment on above: Ordered: 06/29/2024 Hepatitis B virus beltran rface Ag [Presence] in Serum or Plasma by Immunoassay Hepatitis B surface antigen Lab Routine Missed menses , unspecified gestational age Ordered: 06/29/2024 [facility] Comment on above: Ordered: 06/29/2024 Hepatitis C virus Ab [Presence] in Serum or Plasma by Immunoassay Hepatitis C antibody Lab Routine Missed menses , unspecified gestational age Ordered: 06/29/2024 [facility] Comment on above: Ordered: 06/29/2024 HIV-1/HIV-2 antigen/antibody combination immunoassay HIV-1 and HIV-2 antibodies Lab Routine Missed menses , unspecified gestational age Ordered: 06/29/2024 [facility] Comment on above: Ordered: 06/29/2024 Neisseria gonorrhoea e DNA [Presence] in Unspecified specimen by INESSA with probe detection Neisseria gonorrhea DNA probe, direct Lab Routine STD exposure Ordered: 02/20/2025 [facility] Comment on above: Ordered: 02/20/2025 Reagin Ab [Presence] in Serum by RPR RPR Lab Routine Missed menses , unspecified gestational age Ordered: 06/29/2024 [facility] Comment on above: Ordered: 06/29/2024 Rubella antibody, IgG Rubella an tibody, IgG Lab Routine Missed menses , unspecified gestational age Ordered: 06/29/2024 [facility] Comment on above: Ordered: 06/29/2024 SURESWAB(R) ADVANCED VAGINITIS PLUS, TMA SURESWAB(R) ADVANCED VAGINITIS PLUS, TMA Pathology and Cytology Routine STD exposure Ordered: 02/20/2025 [facility] Work Phone: Comment on above: Ordered: 02/20/2025 Immunizations Immunization Date Immunization Notes Care Provider Ryne abrams 08-28-2002 influenza virus vacc ine, unspecified formulation Noms Nurse [facility] Payers Date Payer Category Payer Medicaid HMO [place] [employer] [id number] 2024 Blue Cross Blue [employer] Managed Care - O [id number] 2023 Medicaid [employer] [employer] [place] [id number] 2023-Present [address] [address] [id number] 2023 Medicaid (Managed Care) [facility] MEDICA[facility] [id number] 2021 Blue Cross Blue Shield 1.2.8 [id number] 2021 Unknown BCBS BCBS [id number] [id number] 2021-Present [phone] [address] [place] [address] [id number]. [id number] 2001 Unknown [id number] 2.16.840.1.011277.3.579.2. 593 2001 Unknown [id number] 2.16.840.1.902310.3.579.2. 593 2001 Unknown [id number] 2.16.840.1.652728.3.579.2. 593 2001 Unknown [id number] 2.16.840.1.465739.3.579.2. 593 2001 Unknown [id number] 2.16.840.1.229339.3.579.2. 593 2001 Unknown [id number] 2.16.840.1.294722.3.579.2. 593 2001 Unknown [id number] 2.16.840.1.837621.3.579.2. 593 2001 Unknown [id number] 2.16.840.1.941316.3.579.2. 593 2001 Unknown [id number] 2.16.840.1.139879.3.579.2. 593 2001 Unknown [id number] 2.16.840.1.694946.3.579.2. 593 2001 Unknown [id number] 2.16.840.1.409941.3.579.2. 593 2001 Unknown [id number] 2.16.840.1.365732.3.579.2. 593 2001 Unknown [id number] 2.16.840.1.429969.3.579.2. 593 2001 Unknown [id number] 2.16.840.1.986180.3.579.2. 593 2001 Unknown [id number] 2.16.840.1.568231.3.579.2. 593 2001 Unknown [id number] 2.16.840.1.177536.3.579.2. 593 2001 Unknown [id number] 2.16.840.1.873393.3.579.2. 593 2001 Unknown [id number] 2.16.840.1.416601.3.579.2. 593 2001 Unknown [id number] 2.16.840.1.175476.3.579.2. 593 2001 Unknown [id number] 2.16.840.1.466560.3.579.2. 593 2001 Unknown [id number] 2.16.840.1.293489.3.579.2. 593 2001 Unknown [id number] 2.16.840.1.072660.3.579.2. 1286 2001 Unknown [id number] 2.16.840.1.488604.3.579.2. 9 2001 Unknown [id number] 2.16.840.1.059864.3.579.2. 1258 2001 Unknown [id number] 2.16.840.1.272254.3.579.2. 9 2001 Unknown [id number] 2.16.840.1.482166.3.579.2. 1258 2001 Unknown [id number] 2.16.840.1.113206.3.579.2. 1258 2001 Unknown [id number] 2.16.840.1.888160.3.579.2. 1258 2001 Unknown [id number] 2.16.840.1.093153.3.579.2. 1258 2001 Unknown [id number] 2.16.840.1.153899.3.579.2. 1258 2001 Unknown [id number] 2.16.840.1.140121.3.579.2. 1258 2001 Unknown [id number] 2.16.840.1.238856.3.579.2. 1258 2001 Unknown [id number] 2.16.840.1.875506.3.579.2. 1258 2001 Unknown [id number] 2.16.840.1.483460.3.579.2. 1259 1959 Self-pay 1959 Unknown [id number] 1959 Unknown [id number] Unknown [id number] 2.16.840.1.807945.3.579.2. 593 Unknown [id number] 2.16840.1.938986.3.579.2. 531 Social History Date Type Detail Facility Start: 10-13-2023 End: 06-29-2024 Sex Assigned At [facility] Other Start: 2000 Sex Assigned At Female F [facility] Start: 10-13-2023 End: 05-10-2025 Tobacco smoking status NHIS Never smoked tobacco [facility] Start: 06-29-2024 End: 04-30-2025 Alcoholic beverage intake Current drinker of alcohol (finding) [facility] Start: 10-13-2023 End: 06-29-2024 History of Social function [facility] Start: 05-24-2024 [facility] Start: 2001 Sex assigned at Not on file N [facility] Tobacco smoking stat us PAIS Unknown if ever smoked [facility] Work Phone: Start: 04-29-2015 End: 08-11-2024 Sex Female (finding) [facility] Start: 05-10-2025 Alcoholic beverage intake Ex-drinker (finding) [facility] Unknown [facility] Medical Equipment Procedure Code Equipment Code Equipment Origin al Text Equipment Identifier Dates 1 strip by In Vi tro route Daily Use in the morning prior to breakfast, 1 hour after each meal for a total of 4times daily. [id number] Start: 05-08-2025 End: 06-07-2025 1 each by In Vit ro route Daily Use to check FSBS four times daily [id number] Start: 05-08-2025 End: 06-07-2025 Clinical Notes 12-26-2022 to 05-14-2025 Megahna Felder LPN - 05/14/2025 2:40 PM EDTGroup Note - Xenia Rayo RD - 05/13/2025 1:30 PM EDTGroup Note - Xenia Rayo RD - 05/13/2025 1:30 PM TRUE Navarro - 04/30/2025 10:50 AM EDT Note Date & Type Note Facility 05-14-2025 History of Presen t illness Narrative Reason for Appointment: Patient ID: Vimal Funes is a 25 y.o. female who presents for Routine Visit Patient presents today for Return OB appointment. MEDICATIONS Current Outpatient Medications Medication Instructions Alcohol Swabs (Alcohol Prep Pad) 70 % pads 1 Pad, Topical, Daily, Use four times daily to check FSBS. Blood Glucose Monitoring Suppl (D-Care Glucometer) w/Device kit 1 kit, Does not [...] Medical History: Diagnosis Date Anemia Gestational diabetes ([facility]) History of blood transfusion Lead poisoning Miscarriage ([facility]) Nonsmoker Post depression HISTORY PAST MEDICAL HISTORY SOCIAL HISTORY Past Medical History: Diagnosis Date Anemia Gestational diabetes ([facility]) History of blood transfusion Lead poisoning Miscarriage ([facility]) Nonsmoker Post depression /anxiety Social History Tobacco [...] nursing note reviewed. Exam conducted with a pressure tank operator present. Vitals: Estimated body mass index is 31.35 kg/m as calculated from the following: Height as of 01/06/23: 5' 3 . Weight as of this encounter: 177 lb. BP: 140/90 Patient's last menstrual period was 10/15/2024 (exact date). ASSESSMENT & PLAN ICD-10-CM 1. Third trimester ([facility]) Z34.93 POCT urinalysis dipstick manually resulted 2. 30 weeks gestation of ([facility]) Z3A.30 POCT urinalysis dipstick manually resulted 3. induced hypertension, antepartum ([facility]) O13.9 Creatinine Protein, urine, 24 hour Pt [...] Jose Rodriguez DO documented in this encounter [facility] 05-13-2025 Group counseling note Patient: Vimal Funes Date: 05/13/2025 Vitals: 05/13/25 1611 Weight: [...] Face to face time was 110 minutes. [employer] Work Phone: 05-13-2025 Miscellaneous Notes Patient: Vimal Funes Date: 05/13/2025 Vitals: 05/13/25 1611 Weight: [...] was 110 minutes. documented in this encounter [facility] 05-07-2025 Telephone encounter Note Called pt to let her know that she did not pass her 3 hour glucose test and that I would be sending in supplies and referring her to diabetic education. [facility] 05-07-2025 Miscellaneous Notes Called pt to let her know that she did not pass her 3 hour glucose test and that I would be sending in supplies and referring her to diabetic education. documented in this encounter [facility] 04-30-2025 History of Presen t illness [...] resulted 2. -induced hypertension in third trimester ([facility]) O13.3 US biophysical profile w non stress test US OB follow up transabdominal approach labetalol (Normodyne) 300 MG tablet 3. Gestational diabetes mellitus (GDM) in third trimester, gestational diabetes method of control unspecified ([facility]) O24.419 US biophysical profile w non [...] of: TRUE Argueta documented in this encounter [facility] 04-25-2025 History of Presen t illness [...] Medical History: Diagnosis Date Anemia Gestational diabetes ([facility]) History of blood transfusion Lead poisoning Miscarriage ([facility]) Nonsmoker Post depression HISTORY PAST [...] ASSESSMENT & PLAN ICD-10-CM 1. Second trimester ([facility]) Z34.92 2. 27 weeks gestation of ([facility]) Z3A.27 Patient presents for BP check. BP elevated today despite taking 100mg bid labetolol daily. We will increase to 200mg bid daily. Patient given labs and instructed to follow up with OB should she develop headache or vision changes Pt will follow up with DR Rodriguez next week Documented by TRUE Argueta on behalf of: TRUE Argueta documented in this encounter [facility] 04-11-2025 History of Presen t illness [...] 1. Second trimester ([facility]) Z34.92 POCT urinalysis dipstick manually resulted 2. 25 weeks gestation of ([facility]) Z3A.25 3. Diabetes mellitus screening Z13.1 CBC [...] of: TRUE Argueta documented in this encounter [facility] 03-14-2025 History of Presen t illness [...] Medical History: Diagnosis Date Anemia Gestational diabetes ([facility]) History of blood transfusion Lead poisoning Miscarriage ([facility]) Nonsmoker Post depression HISTORY PAST MEDICAL HISTORY SOCIAL HISTORY Past Medical History: Diagnosis Date Anemia Gestational diabetes ([facility]) History of blood transfusion Lead poisoning Miscarriage ([facility]) Nonsmoker Post depression /anxiety Social History [...] nursing note reviewed. Exam conducted with a pressure tank operator present. Vitals: Estimated body mass index is 29.23 kg/m as calculated from the following: Height as of 01/06/23: 5' 3 . Weight as of this encounter: 165 lb. BP: 112/76 Patient's last menstrual period was 10/15/2024 (exact date). ASSESSMENT & PLAN ICD-10-CM 1. Second trimester ([facility]) Z34.92 POCT urinalysis dipstick manually resulted 2. 21 weeks gestation of ([facility]) Z3A.21 Patient presents today for a routine obstetrics appointment. Patient is currently 21w3d with a Estimated Date of Delivery: 07/22/25. Patient has no complaints at this time and will return to clinic in 4 weeks. Documented by Diamond Borja LPN on behalf of: Jose Rodriguez DO documented in this encounter [facility] 02-20-2025 History of Presen t illness [...] nursing note reviewed. Exam conducted with a pressure tank operator present. Vitals: Estimated body mass index is [...] of: TRUE Argueta documented in this encounter [facility] 01-14-2025 History of Presen t illness [...] nursing note reviewed. Exam conducted with a pressure tank operator present. Vitals: Estimated body mass index is [...] or undercooked meat, and stay away from [facility]. Patient has been consulted regarding any further [...] Jose Rodriguez DO documented in this encounter [facility] 08-20-2024 History of Presen t illness [...] having a D&C Hysteroscopy performed at [facility] with Dr. Rodriguez. Pathology results was reviewed with the patient in great detail and all restrictions have been lifted. Follow Up: Patient is to return to the office for annual exam unless needed otherwise. Documented by TRUE Argueta on behalf of: TRUE Argueta documented in this encounter [facility] 08-06-2024 History of Presen t illness [...] transfusion Lead poisoning Miscarriage Nonsmoker Post depression (CMS/[facility]) /anxiety Social History Tobacco Use Smoking status: [...] nursing note reviewed. Exam conducted with a pressure tank operator present. Vitals: Estimated body mass index is [...] vaginal bleeding. Patient to discuss date with Elephant Tamer prior to leaving. Patient is able to obtain work note for the week and if longer is needed she will reach out to office. Documented by Diamond Borja LPN on behalf of: Jose Rodriguez DO documented in this encounter [facility] 06-29-2024 History of Presen t illness [...] blood transfusion Lead poisoning Nonsmoker Post depression ([facility]/HCC) Family History Problem Relation Name Age of [...] or undercooked meat, and stay away from [facility]. Patient has also been advised to not [...] documented in this encounter [facility] [employer] 12-26-2022 Evaluation note Encounter Date Diagnosis Assessment [...] appointment to be seen soon as possible [employer] Other [employer] noteNo assessment information available [facility] Work Phone: evaluation note* Diagnosis Missed menses , unspecified gestational age Encounter for supervision of normal first in first trimester Nausea Nausea alone 7 weeks gestation of documented in this encounter [facility] [employer] [facility]* Diagnosis Miscarriage Unspecified spontaneous without mention of complication documented in this encounter [facility] [employer] note* Diagnosis Postoperative examination Follow-up examination, following unspecified surgery documented in this encounter [facility] [employer] note* Diagnosis 13 weeks gestation of Second trimester state, incidental documented in this encounter [facility] [employer] [facility]* Diagnosis Screening, , for anatomic survey Encounter for anatomic survey Well woman exam with routine gynecological exam Routine gynecological examination STD exposure Second trimester state, incidental 18 weeks gestation of Urinary frequency documented in this encounter [facility] [employer] [facility]* Diagnosis Second trimester ([facility]HS-HCC) state, incidental 21 weeks gestation of ([facility]HS-HCC) documented in this encounter [facility] [employer] [facility]* Diagnosis Second trimester (HHS-HCC) state, incidental 25 weeks gestation of ([facility]HS-HCC) Diabetes mellitus screening Screening for diabetes mellitus Elevated BP without diagnosis of hypertension documented in this encounter [facility] [employer] note* Diagnosis Second trimester (HHS-HCC) state, incidental 27 weeks gestation of (HHS-HCC) induced hypertension, antepartum (HHS-HCC) Transient hypertension of , antepartum documented in this encounter [facility] [employer] [facility]* Diagnosis BP check Screening for hypertension -induced hypertension in third trimester (HHS-HCC) Gestational diabetes mellitus (GDM) in third trimester, gestational diabetes method of control unspecified ([facility]HS-HCC) [facility] Diagnosis Gestational diabetes mellitus (GDM), antepartum, gestational diabetes method of control unspecified ([facility]HS-HCC) Elevated glucose tolerance test Impaired glucose tolerance test documented in this encounter [facility] HealthcareEvaluation note* Diagnosis Gestational diabetes mellitus (GDM) in third trimester, gestational diabetes method of control unspecified [facility] this encounter [facility]* Diagnosis Third trimester (HHS-HCC) state, incidental 30 weeks gestation of (HHS-HCC) induced hypertension, antepartum (HHS-HCC) Transient hypertension of , antepartum documented in this encounter [facility] HealthcareInstructionsNot on filedocumented in this encounterProSelect [facility] SystemInstructionsNot on filedocumented in this encounterProSelect [facility] System Summary Purpose Family History No Family History Records FoundNo Family History Records FoundNo Family History Records FoundNo Family History Records FoundNo Family History Records Found Advance Directives No Advanced Directives Records Found Advance Directive Response Recorded Date/ Time Advance Directives No December 27 23 6:21am Additional Source Comments INFORMATION SOURCE (unrecogn ized section and content) DATE CREATED AUTHOR 09/24/2021 [facility] DATE CREATED AUTHOR AUTHOR'S ORGANIZ ATION 12/07/2022 [facility] DATE CREATED AUTHOR AUTHOR'S ORGANIZ ATION 08/15/2024 [facility] DATE CREATED AUTHOR AUTHOR'S ORGANIZ ATION 05/14/2025 [facility] DATE CREATED AUTHOR AUTHOR'S ORGANIZ ATION 05/16/2025 [facility] EPIC REASON FOR VISIT (unrecogniz ed section and content) Reason Comments Initial Visit Reason Comments Miscarriage Reason Comments Post-op Visit Reason Comments Routine Visit Reason Comments Blood Pressure Check Reason Comments Gestational Diabetes Specialty Diagnoses / Procedures Referred By Ashly t Referred To Contact Maternal and Medicine Diagnoses Gestational diabetes mellitus (GDM) in third trimester, gestational diabetes method of control unspecified Jose Rodriguez, DO [address] [place] [address] [address]é [place] [address] Phone: tel: fax: Maternal- Medicine at [facility] [address] [place] [address] Phone: tel: fax: Referral ID Status Reason Start Date Expiration Date Visits Requested Visits Authorized [id number] Pending Review Specialty Services Required 05/09/2025 05/09/2026 1 1 Care Teams (unrecognized sec tion and content) Team Status: Inactive Member Role Status Dates Jennifer Huston NP-C Attending Provider Active Press Brake Operator Relationship Specialty Start Date End Date Vaishali Zapata MD [address] [place] [address] PCP - General Family Medicine 02/04/23 Press Brake Operator Relationship Specialty Start Date End Date Vaishali Zapata MD [address] [place] [address] PCP - General Family Medicine 02/04/23 Team Status: Active Member Role Status Dates PHYSICIAN NO FAMILY Primary Care Provider Active Team Status: Inactive Member Role Status Dates PHYSICIAN NO FAMILY Primary Care Provider Active Start: August 10, 2024 End: August 10, 2024 Jose Rodriguez DO Attending Provider Active Start : August 10, 2024 End: August 10, 2024 Press Brake Operator Relationship Specialty Start Date End Date Unallocated, Arjun Vo MD [facility] [address] [facility] [place] [address] PCP - General Family Medicine 08/03/24 Press Brake Operator Relationship Specialty Start Date End Date Unallocated, Arjun Vo MD [facility] [place] [address] PCP - General Family Medicine 08/03/24 Press Brake Operator Relationship Specialty Start Date End Date Unallocated, Arjun Vo MD [facility] [place] [address] PCP - General Family Medicine 08/03/24 Press Brake Operator Relationship Specialty Start Date End Date Unallocated, Arjun Vo MD [facility] [place] [address] PCP - General Family Medicine 08/03/24 Press Brake Operator Relationship Specialty Start Date End Date Unallocated, Arjun Vo MD [facility] [facility] [place] [address] PCP - General Family Medicine 08/03/24 Press Brake Operator Relationship Specialty Start Date End Date Unallocated, Arjun oV [place] [address] PCP - General Family Medicine 08/03/24 Press Brake Operator Relationship Specialty Start Date End Date Unallocated, Arjun Vo MD [facility] [place] [address] PCP - General Family Medicine 08/03/24 Press Brake Operator Relationship Specialty Start Date End Date Unallocated, Arjun Vo MD [facility] [facility] [place] [address] PCP - General Family Medicine 08/03/24 Press Brake Operator Relationship Specialty Start Date End Date Unallocated, Arjun Vo MD [facility] [place] [address] PCP - General Family Medicine 08/03/24 Press Brake Operator Relationship Specialty Start Date End Date Unallocated, Arjun Vo MD [facility] [place] [address] PCP - General Family Medicine 08/03/24 Press Brake Operator Relationship Specialty Start Date End Date Unallocated, Arjun Vo MD [facility] [employer] [facility] [facility] [place] [address] PCP - General Family Medicine 08/03/24 Press Brake Operator Relationship Specialty Start Date End Date Unallocated, Arjun Vo MD [facility] [place] [address] PCP - General Family Medicine 08/03/24 Press Brake Operator Relationship Specialty Start Date End Date Unallocated, Noms Gilda, MD [address] [facility] [place] [id number] PCP - General Family Medicine 08/03/24 Goals [...] BE BASED ON THE PRIMARY CLINICAL RECORDS. [employer] [facility]. provides no warranty or guarantee of the accuracy or completeness of information in this document.
[2025-05-18 11:19] LABS: Hematocrit 38.1 % (36.0-48.0); Hemoglobin 13.3 g/dL (12.0-16.0); Immature Granulocytes Abs Auto 0.06 10^3/uL (0.00-0.03); Immature Granulocytes Pct Auto 0.4 % (0.0-0.5); Lymphocytes Absolute Auto 1.4 10^3/uL (1.2-3.8); Mean Corpuscular HGB Conc 34.9 g/dL (29.9-35.2); Mean Corpuscular Hemoglobin 31.9 pg (26.7-34.0); Mean Corpuscular Volume 91.4 fL (81.0-99.0); Platelet Count 223 10^3/uL (150-450); Red Blood Count 4.17 10^6/uL (4.20-5.40); White Blood Count 15.0 10^3/uL (4.0-11.0)
[2025-05-18 11:27] LABS: INR 0.96; Partial Thromboplastin Time 25.6 sec (22.3-36.2); Prothrombin Time 10.2 sec (9.0-11.6)
[2025-05-18 11:47] LABS: Aspartate Amino Transferase 18 U/L (15-37); Blood Urea Nitrogen 9.0 mg/dL (7.0-18.0); Estimated GFR (African America >60 (>=60 mL/min/1.73m^2); Estimated GFR (Non-African Ame >60 (>=60 mL/min/1.73m^2); Uric Acid 4.0 mg/dL (2.6-6.0)
== END 2025-05-18 10:45 | disposition home or self-care (01) ==
PROVIDERS: PCP Nurse Practitioner Family; Visit Provider Obstetrics & Gynecology
DX: O13.9 Gestational [pregnancy-induced] hypertension without significant proteinuria, unspecified trimester (principal)
CPT/HCPCS: 36415; 82565; 83615; 84450; 84520; 84550; 85025; 85610; 85730

== ENCOUNTER 2025-05-18 11:09 | Outpatient (OUT) | payer BC, OTHER, SELFPAY ==
--- OUTSIDE RECORDS SUMMARY | 2025-05-13 13:30 | XMS_ITS | Encounter Summary ---
Author Organization [facility] [employer] [facility] tem Address [id number] [address] [place] [address] Care Team Providers Care Cullet Crusher And Washer Name Role Phone Unavailable Primary Care Provider Unavailabl e Reason for Visit * Reason Comments Gestational Diabetes * Consultation (Routine) - Pending Review Specialty Diagnoses / Procedures Referred By Contac t Referred To Contact Maternal and Medicine Diagnoses Gestational diabetes mellitus (GDM) in third trimester, gestational diabetes method of control unspecified Jose Rodriguez, DO [address] [place] [address] [place] [address] Phone: tel: fax: Maternal- Medicine at [facility] [address] [place] [address] Phone: tel: fax: Referral ID Status Reason Start Date Expiration Date Visits Requested Visits Authorized [id number] Pending Review Specialty Services Required 05/09/2025 05/09/2026 1 1 Encounter Details Date Type Department Care Team (Late st Contact Info) Description 05/13/2025 1:30 PM EDT Support Visit Maternal- Medicine at [facility] [address] [place] [address] Marjorie Rico, RN [address] [facility] [address] [phone] Xenia Rayo, ALEC [address], [address] [place] [phone] Gestational diabetes mellitus (GDM) in third trimester, [...] Info) Description 06/04/2025 1:00 PM EDT Appointment [facility] - Ultrasound [address] [place] [address] Jose Rodriguez, DO [address] [place] [address] [place] [address] documented as of this encounter Procedures Procedure [...]
--- OUTSIDE RECORDS SUMMARY | 2025-05-14 14:40 | XMS_ITS | Encounter Summary ---
Author Organization [facility] Address [address] [place] [address] Care Team Providers Care Director Of Child Welfare Services Name Role Phone Unallocated, Noms Provider Primary Care Provi krissy Reason for Visit * Reason Comments Routine Visit Encounter Details Date Type Department Care Team (Late st Contact Info) Description 05/14/2025 2:40 PM EDT Routine ARJUN [place] OBGYKeegan [address] [facility] [place] [address] Jose Rodriguez DO [address] [facility] [address] Josué [place], [facility]11 Third trimester ([facility]); 30 weeks gestation of ([facility]); induced hypertension, antepartum ([facility]) Social History Tobacco Use Types Packs/Day [...] this encounter Progress Notes * Meghana Felder, NURSE PRN - 05/14/2025 2:40 PM EDT Reason for Appointment: Patient ID: Amber Funes is a 25 y.o. female who presents for Routine Visit Patient presents today for Return OB appointment. MEDICATIONS Current Outpatient Medications Medication Instructions Alcohol Swabs (Alcohol Prep Pad) 70 % pads 1 Pad, Topical, Daily, Use four times daily to check FSBS. Blood Glucose Monitoring Suppl (D-[employer] Glucometer) w/Device kit 1 kit, Does not [...] nursing note reviewed. Exam conducted with a chemical research worker present. Vitals: Estimated body mass index is 31.35 kg/m?? as calculated from the following: Height as of 01/06/23: 5' 3 . Weight as of this encounter: 177 lb. BP: 140/90 Patient's last menstrual period was 10/15/2024 (exact date). ASSESSMENT & PLAN ICD-10-CM 1. Third trimester ([facility]) Z34.93 POCT urinalysis dipstick manually resulted 2. 30 weeks gestation of ([facility]) Z3A.30 POCT urinalysis dipstick manually resulted 3. induced hypertension, antepartum ([facility]) O13.9 Creatinine Protein, urine, 24 hour Pt [...] Routine [facility] [address] [address] Jose Rodriguez DO [address] [place] [address] Scheduled Orders Name Type Priority Associated Diagnoses [...] antepartum documented in this encounter Care Teams Director Of Child Welfare Services Relationship Specialty Start Date End Date Unallocated, Noms Provider, [address] [place] [address] PCP - General Family Medicine 08/03/24 documented as of this encounter
--- OUTSIDE RECORDS SUMMARY | 2025-05-18 11:12 | XMS_ITS | Encounter Summary ---
Author Organization [facility] Address [address] [place] [address] Care Team Providers Care Computer Analyst Name Role Phone Unallocated, Noms Provider Primary Care Provi krissy Encounter Details Date Type Department Care Team (Late st Contact Info) Description 05/04/2025 Telephone [facility] [address] [place] [address] Jose Rodriguez DO [address] Josué [place], [facility]11 [...] Info) Description 05/22/2025 2:40 PM EDT Routine [facility] [place] [facility] [address] [place] [address] Jose Rodriguez DO [address] [facility] [place] [address] documented as of this encounter Visit Diagnoses Diagnosis Gestational diabetes mellitus (GDM), antepartum, gestational diabetes method of control unspecified ([facility]) Elevated glucose tolerance test Impaired glucose tolerance test documented in this encounter Care Teams Computer Analyst Relationship Specialty Start Date End Date Unallocated, Noms [place] [address] PCP - General Family Medicine 08/03/24 documented as of this encounter
--- OUTSIDE RECORDS SUMMARY | 2025-05-18 11:12 | XMS_ITS | Encounter Summary ---
Author Organization [facility] Address [address] [place] [address] Care Team Providers Care Firestopper Installer Name Role Phone Unallocated, Noms Provider Primary Care Provi krissy Encounter Details Date Type Department Care Team (Late st Contact Info) Description 08/10/2024 Clinisync Result Encounter [facility] External Department Unsolicited Mackenzie Rodriguez DO [address] [place], [facility]11 Social History Tobacco Use Types [...] [facility] [address] [place] [phone] Mackenzie Rodriguez DO [address] [place] [address] documented as of this encounter Procedures Procedure Name Priority Date/Time Associated Diagnosis Comments US OB TRANSVAGINAL 08/10/2024 8: 44 AM EST documented in this encounter Results * US OB TRANSVAGINAL (08/10/2024 8:44 AM EST) Anatomical Region Laterality Modality Other 08/10/2024 8:44 AM EST Narrative 08/10/2024 8:47 [place] [address] Ultrasound Report Signed Patient: AMBER PIZANO MR#: [id number] : 2000 Acct:[id number] Age/Sex: 24 / F ADM Date: 08/10/24 Loc: SURGOUT Attending Dr: Mackenzie Rodriguez D.O. Ordering Physician: Mackenzie Rodriguez D.O. Date of Service: 08/10/24 Procedure(s): US OB transvaginal Accession Number(s): [id number] cc: LUIS SEE ; Mackenzie Rodriguez D.O. [facility] [place] [id number] Patient Name: AMBER PIZANO MRN: [id number] date: 2000 Sex: F Assigned Patient Location: [facility] Current Patient Location: [facility] Accession/Order Number: [id number] Exam Date: 08/10/2024 08:10 Report Date: 08/10/2024 [...] M.D. Signed By: 08/10/24846 DD/ 3 TD/TT: Sebd Teacher: Procedure Note Radiology, Radiologist, MD - 08/10/2024 [place] [address] Ultrasound Report Signed Patient: AMBER PIZANO MMR#: [id number] : 2000Acct:[id number] Age/Sex: 24 / FADM Date: 08/10/24 Loc: SURGOUT Attending Dr: Mackenzie Rodriguez D.O. Ordering Physician: Mackenzie Rodriguez D.O. Date of Service: 08/10/24 Procedure(s): US OB transvaginal Accession Number(s): [id number] cc: LUIS SEE ; Mackenzie Rodriguez D.O. [facility] [place] [id number] Patient Name: AMBER PIZANO MRN: [id number] date: 2000 Sex: F Assigned Patient Location: [facility] Current Patient Location: [facility] Accession/Order Number: [id number] Exam Date: 08/10/2024 08:10 Report Date: 08/10/2024 [...] Lavon Herrera M.D. Signed By:08/10/2447 DD/ TD/TT: Sebd Teacher: us Mackenzie Michael DO [facility] Final Result documented in this encounter Visit Diagnoses Not on filedocumented in this encounter Care Teams Firestopper Installer Relationship Specialty Start Date End Date Unallocated, Noms Provider, [address] [place] [address] PCP - General Family Medicine 08/03/24 documented as of this encounter
--- OUTSIDE RECORDS SUMMARY | 2025-05-18 11:12 | XMS_ITS | Encounter Summary ---
Author Organization [facility] Address [address] [place] [address] Care Team Providers Care Assisted Living Assistant Name Role Phone Unallocated, Noms Provider Primary Care Provi krissy Encounter Details Date Type Department Care Team (Late st Contact Info) Description 08/10/2024 Abstract [facility] [place] [address] Jose Rodriguez DO [address] [place], [place] [address] Social History Tobacco Use Types Packs/Day Years [...] Info) Description 05/22/2025 2:40 PM EDT Routine [facility] [place] [address] Jose Rodriguez DO [address], [facility]11 documented as of this encounter Visit Diagnoses Not on filedocumented in this encounter Care Teams Assisted Living Assistant Relationship Specialty Start Date End Date Unallocated, Noms Provider, [address] [place] [address] PCP - General Family Medicine 08/03/24 documented as of this encounter
--- OUTSIDE RECORDS SUMMARY | 2025-05-18 11:12 | XMS_ITS | Encounter Summary ---
Author Organization [facility] tem Address [id number] [address] [place] [address] Care Team Providers Care Commercial Airline Pilot Name Role Phone Unavailable Primary Care Provider Unavailabl e Encounter Details Date Type Department Care Team (Latest Contact Info) Description 05/13/2025 Travel Social History Tobacco Use Types Packs/Day Years [...] Info) Description 06/04/2025 1:00 PM EDT Appointment [facility] - Ultrasound [address] [place] [address] Jose Rodriguez, DO [address] [facility] [address] [place] [place] [address] documented as of this encounter Visit Diagnoses Not on filedocumented in this encounter
--- OUTSIDE RECORDS SUMMARY | 2025-05-18 11:12 | XMS_ITS | Encounter Summary ---
Author Organization [facility] Address [address] [place] [address] Care Team Providers Care Music Historian Name Role Phone Unallocated, Noms Provider Primary Care Provi krissy Encounter Details Date Type Department Care Team (Late st Contact Info) Description 05/04/2025 Clinisync Result Encounter [facility] External Department Unsolicited Collin Leach PA [address] [place], [facility]11 Social History Tobacco Use [...] PM EDT Routine [facility] [address] [facility] [phone] Jose Rodriguez DO [address] [facility] [address] Josué [place], [facility]11 documented as of this encounter Procedures Procedure Name Priority Date/Time Associated Diagnosis Comments US OB GROWTH 05/04/2025 12:08 PM EDT documented in this encounter Results * US OB GROWTH (05/04/2025 12:08 PM EDT) Anatomical Region Laterality Modality Other 05/04/2025 12:0 8 PM EDT Narrative 05/04/2025 12:11 [place] [address] Ultrasound Report Signed Patient: VIMAL PIZANO MR#: [id number] : 2000 Acct:[id number] Age/Sex: 25 / F ADM Date: 05/04/25 Loc: [facility] 250-[address]: Collin Leach Ordering Physician: Collin Leach Date of Service: 05/04/25 Procedure(s): US OB growth Accession Number(s): [id number] cc: Collin Leach; LUIS SEE [place] [id number] Patient Name: VIMAL PIZANO MRN: [id number] date: 2000 Sex: F Assigned Patient Location: [facility] Current Patient Location: [facility] Accession/Order Number: [id number] Exam Date: 05/04/2025 12:06 Report Date: 05/04/2025 [...] Jr., D.O. 05/04/2025 12:08 PM Dictation Location: [facility] Electronically authenticated by: [id number] Y Date: 05/04/2025 12:08 Dictated By: Bulmaro Arias M.D. Signed By: 05/04/25 1211 DD/ 1208 TD/TT: E M Assembler: Procedure Note Radiology, Radiologist, MD - 05/04/2025 [place] [address] Ultrasound Report Signed Patient: VIMAL PIZANO MMR#: [id number] : 2000Acct:[id number] Age/Sex: 25 / FADM Date: 05/04/25 Loc: [facility] 250-[address]: Collin Leach Ordering Physician: Collin Leach Date of Service: 05/04/25 Procedure(s): US OB growth Accession Number(s): [id number] cc: Collin Leach; LUIS SEE [place] [address] Patient Name: VIMAL PIZANO MRN: [id number] date: 2000 Sex: F Assigned Patient Location: [facility] Current Patient Location: [facility] Accession/Order Number: [id number] Exam Date: 05/04/2025 12:06 Report Date: 05/04/2025 [...] Jr., D.O. 05/04/2025 12:08 PM Dictation Location: [place] [address] Electronically authenticated by: [id number] Y Date: 2:08 Dictated By: Bulmaro Arias M.D. Signed By:05/04/25 1211 DD/ 1208 TD/TT: E M Assembler: us Collin BISWAS [facility] Final Result documented in this encounter Visit Diagnoses Not on filedocumented in this encounter Care Teams Music Historian Relationship Specialty Start Date End Date Unallocated, Noms Provider, [address] [place] [address] PCP - General Family Medicine 08/03/24 documented as of this encounter
--- OUTSIDE RECORDS SUMMARY | 2025-05-18 11:12 | XMS_ITS | Encounter Summary ---
Author Organization [facility] Address [address] [place] [address] Care Team Providers Care Investigator Internal Affairs Name Role Phone Vaishali Zapata MD Primary Care Provider Bipin cheng Unallocated, Noms Provider Primary Care Provi krissy Encounter Details Date Type Department Care Team (Late st Contact Info) Description 08/02/2024 Abstract [facility] P[facility] [address] [place] [address] Jose Rodriguez DO [address] [place], [place] [address] Social History Tobacco Use Types Packs/Day Years [...] Department Care Team (Late Contact Info) Description 05/22/2025 2:40 PM EDT Routine [facility] [address] [place] [address] Jose Rodriguez DO [address] [place], [facility] documented as of this encounter Visit Diagnoses Not on filedocumented in this encounter Care Teams Investigator Internal Affairs Relationship Specialty Start Date End Date Vaishali Zapata MD [address] [place] [address] PCP - General Family Medicine 02/04/23 08/02/24 Unallocated, Noms Provider, [address] [place] [address] PCP - General Family Medicine 08/03/24 documented as of this encounter
--- OUTSIDE RECORDS SUMMARY | 2025-05-18 11:12 | XMS_ITS | CCD ---
Author Organization [facility] Care Team Providers Care Log Haul Chain Feeder Name Role Phone MICHAEL ., DR MANN [...] Unavailable MISC, DR DOMINIQUE Primary Care Unavailable [place] FLATS, DR COCO Danielle Consulting Unavailable MICHAEL ., DR MANN Consulting Unavailable MICHAEL ., DR MANN Admitting Unavailable MICHAEL ., DR MANN Attending Unavailable MISC, DR DOMINIQUE Primary Care Unavailable MICHAEL ., DR MANN Consulting Unavailable MICHAEL ., DR MANN Admitting Unavailable MICHAEL ., DR MANN Attending Unavailable MISC, DR DOMINIQUE Primary Care Unavailable [place] FLATS, DR COCO Danielle Consulting Unavailable MICHAEL ., [...] Jennifer Huston Unavailable JEFFERY Huston Attending Provider [phone] Vaishali Zapata MD Primary Care Provider Unavai [...] antepartum, gestational diabetes method of control unspecified ([facility]) , Elevated glucose tolerance test 1 [...] External Glucose Fasting Or Random (Fbs) 80 [facility] [employer] Schedule C Systems System [facility] OB BPP W NON-STRESS on 05-11-[address] [address] Ultrasound Report Signed Patient: VIMAL FUNES MR#: [id number] : 2000 Acct:[id number] Age/Sex: 25 / F ADM Date: 05/11/25 Loc: [facility] 253-[address]: Rossana Ramos Ordering Physician: Rossana Rachel Date of Service: 05/11/25 Procedure(s): US OB BPP w non-stress Accession Number(s): [id number] cc: JENNIFER Watkins [address] [place] [address] Patient Name: VIMAL FUNES MRN: [facility]:[id number] date: 2000 Sex: F Assigned Patient Location: [facility] Current Patient Location: [facility] Accession/Order Number: [id number] Exam Date: 05/11/2025 12:01 Report Date: 05/11/2025 12:02 At the request of: ROSSANA RAMOS Procedure: US OB BPP w non-stress Biophysical profile. Reason for exam: Gestational diabetes COMPARISON: 05/04/2025 TECHNIQUE: Transabdominal imaging of the gravid uterus was obtained. FINDINGS: The marker delivery reports a BPP of 8 out of 8. DANYA is normal at 11.9 cm. heart rate 138 bpm. US/US OB BPP w non-stress IMPRESSION: BPP 8 out of 8. Impression dictated by: Bulmaro Arias Jr., D.O. 05/11/2025 12:02 PM Dictation Location: [place] [address] Electronically authenticated by: [id number] Y Date: 05/11/2025 12:02 Dictated By: Bulmaro Arias M.D. Signed By: 05/11/25 1204 DD/ 1202 TD/TT: Package Line Relief Operator: [facility] Radiology, Radiologist, MD - 05/11/2025 [place] [address] Ultrasound Report Signed Patient: VIMAL FUNES MR#: [id number] : 2000 Acct:[id number] Age/Sex: 25 / F ADM Date: 05/11/25 Loc: [facility] 253-[address]: Rossana Ramos Ordering Physician: Rossana Ramos Date of Service: 05/11/25 Procedure(s): US OB BPP w non-stress Accession Number(s): [id number] cc: Rossana SEE,JENNIFER [place] [address] Patient Name: VIMAL FUNES MRN: [facility]:[id number] date: 2000 Sex: F Assigned Patient Location: [facility] Current Patient Location: [facility] Accession/Order Number: [id number] Exam Date: 05/11/2025 12:01 Report Date: 05/11/2025 12:02 At the request of: ROSSANA RAMOS Procedure: US OB BPP w non-stress Biophysical profile. Reason for exam: Gestational diabetes COMPARISON: 05/04/2025 TECHNIQUE: Transabdominal imaging of the gravid uterus was obtained. FINDINGS: The marker delivery reports a BPP of 8 out of 8. DANYA is normal at 11.9 cm. heart rate 138 bpm. US/US OB BPP w non-stress IMPRESSION: BPP 8 out of 8. Impression dictated by: Bulmaro Arias Jr., D.O. 05/11/2025 12:02 PM Dictation Location: [facility] Electronically authenticated by: [id number] Y Date: 05/11/2025 12:02 Dictated By: Bulmaro Arias M.D. Signed By: 05/11/25 1204 DD/ 1202 TD/TT: Package Line Relief Operator: [facility] [employer] Radiology Study observation (narrative) [facility] [employer] US OB BPP W NON-STRESS Ordered By: Radiologist Radiology on 05-11-2025 [facility] [employer] Work Phone: [facility] TOTAL PROTEIN 24 HOUR UR INEon 05-06-2025 TOTAL PROTEIN URINE RANDOM <6.0 NINF - 11.9 mg/dL [facility] [employer] TOTAL VOLUME 24 HOUR URINE 3700 mL/24hr [facility] CL[facility] [employer] 2nd hr Glucose Tolerance 100 gm loadon 05-04-2025 Glucose Tolerance Test 2 Hour 186 [facility] Schedule C Systems [facility] ALL CBC WITH AUTO DIFFon BASOPHILS ABSOLUTE AUTO 0 [facility] [employer] Basophils/100 WBC (Bld) 0.2 % 0.2 - 2.0 % [facility] [employer] Eosinophils/100 WBC (Bld) 2.6 % 0.9 - 7.0 % [facility] Erythrocyte distribution width (RBC) [Ratio] 12.7 % 11.0 - 15.0 % [facility] Hematocrit (Bld) [Volume fraction] 39.5 % 36.0 - 48.0 % [facility] Hemoglobin (Bld) [Mass/Vol] 13.7 g/dL 12.0 - 16.0 g/dL [facility] IMMATURE GRANULOCYTES ABS AUTO 0.05 High [facility] Immature granulocytes/100 WBC (Bld) 0.4 % 0.0 - 0.5 % [facility] Interpretation and review of laboratory results Abnormal [facility] LYMPHOCYTES ABSOLUTE AUTO 1.6 [facility] Lymphocytes/100 WBC (Bld) 12.6 % Low 20.5 - 60.0 % [facility] MCH (RBC) [Entitic mass] 31.9 pg 26.7 - 34.0 pg [facility] MCHC (RBC) [Mass/Vol] 34.7 g/dL 29.9 - 35.2 g/dL [facility] MCV (RBC) [Entitic vol] 92.1 fL 81.0 - 99.0 fL [facility] MONOCYTES ABSOLUTE AUTO 0.6 [facility] Monocytes/100 WBC (Bld) 5 % 1.7 - 12.0 % [facility] NEUTROPHILS ABSOLUTE AUTO 9.9 High [facility] Neutrophils/100 WBC (Bld) 79.2 % High 43.0 - 75.0 % [facility] Platelet mean volume (Bld) [Entitic vol] 11 fL 9.5 - 13.5 fL [facility] EO # 0.3 [facility] Healthcar e TB PLT 226 [facility] Health[facility] e TB RBC 4.29 [facility] TB WBC 12.5 High [facility] Health[facility] e [facility] Glucose tolerance, 1 houron 05-04-2025 Glucose Tolerance Test 1 Hour 234 [facility] Systems System Glucose tolerance, 3 hourson 05-04-2025 Glucose Tolerance Test 3 Hour 133 [employer] Schedule C Systems System Glucose, tolerance fastingon 05-04-2025 Glucose Tolerance Test Fasting 108 [facility] No Panel Informationon 05-04 [facility] Healthcar e US OB BPP W NON-STRESS on 05-04-[address] [address] Ultrasound Report Signed Patient: VIMAL FUNES MR#: [id number] : 2000 Acct:[id number] Age/Sex: 25 / F ADM Date: 05/04/25 Loc: [facility] 250-[address]: Rossana Ramos Ordering Physician: Rossana Ramos Date of Service: 05/04/25 Procedure(s): US OB BPP w non-stress Accession Number(s): [id number] cc: Rossana Ramos; JENNIFER SEE [address] [place] [address] Patient Name: VIMAL FUNES MRN: [facility]:[id number] date: 2000 Sex: F Assigned Patient Location: [facility] Current Patient Location: [facility] Accession/Order Number: [id number] Exam Date: 05/04/2025 12:08 Report Date: 05/04/2025 12:09 At the request of: ROSSANA RAMOS Procedure: US OB BPP w non-stress Biophysical profile. Reason for exam: Gestational diabetes COMPARISON: None TECHNIQUE: Transabdominal imaging of the gravid uterus was obtained. FINDINGS: The marker delivery reports a BPP of 8 out of 8. DANYA is normal at 12.4 cm. heart rate 150 bpm. US/US OB BPP w non-stress IMPRESSION: BPP 8 out of 8. Impression dictated by: Bulmaro Arias Jr., D.O. 05/04/2025 12:09 PM Dictation Location: [place] [address] Electronically authenticated by: [id number] Y Date: 05/04/2025 12:09 Dictated By: Bulmaro Arias M.D. Signed By: 05/04/25 1212 DD/ 1209 TD/TT: Package Line Relief Operator: [facility] Radiology, Radiologist, MD - 05/04/2025 [place] [address] Ultrasound Report Signed Patient: VIMAL FUNES MR#: [id number] : 2000 Acct:[id number] Age/Sex: 25 / F ADM Date: 05/04/25 Loc: [facility] 250-[address]: Rossana Ramos Ordering Physician: Rossana Ramos Date of Service: 05/04/25 Procedure(s): US OB BPP w non-stress Accession Number(s): [id number] cc: Rossana Ramos; JENNIFER SEE [place] [id number] Patient Name: VIMAL FUNES MRN: [id number] date: 2000 Sex: F Assigned Patient Location: [facility] Current Patient Location: [facility] Accession/Order Number: [id number] Exam Date: 05/04/2025 12:08 Report Date: 05/04/2025 12:09 At the request of: ROSSANA RAMOS Procedure: US OB BPP w non-stress Biophysical profile. Reason for exam: Gestational diabetes COMPARISON: None TECHNIQUE: Transabdominal imaging of the gravid uterus was obtained. FINDINGS: The marker delivery reports a BPP of 8 out of 8. DANYA is normal at 12.4 cm. heart rate 150 bpm. US/US OB BPP w non-stress IMPRESSION: BPP 8 out of 8. Impression dictated by: Bulmaro Arias Jr., D.O. 05/04/2025 12:09 PM Dictation Location: [place] [address] Electronically authenticated by: [id number] Y Date: 05/04/2025 12:09 Dictated By: Bulmaro Arias M.D. Signed By: 05/04/25 1212 DD/ 1209 TD/TT: Package Line Relief Operator: [facility] [employer] Radiology Study observation (narrative) [facility] US OB BPP W NON-STRESS Ordered By: Radiologist Radiology on 05-04-2025 [facility] Schedule C [employer] Work Phone: US OB GROWTHon 05-04-[address] [address] Ultrasound Report Signed Patient: VIMAL FUNES MR#: [id number] : 2000 Acct:[id number] Age/Sex: 25 / F ADM Date: 05/04/25 Loc: [facility] 250-[address]: Rossana Ramos Ordering Physician: Rossana Ramos Date of Service: 05/04/25 Procedure(s): US OB growth Accession Number(s): [id number] cc: Rossana Ramos; JENNIFER SEE The [address] [address] Patient Name: VIMAL FUNES MRN: [facility]:[id number] date: 2000 Sex: F Assigned Patient Location: [facility] Current Patient Location: [facility] Accession/Order Number: [id number] Exam Date: 05/04/2025 12:06 Report Date: 05/04/2025 [...] Jr., D.O. 05/04/2025 12:08 PM Dictation Location: [facility] Electronically authenticated by: [id number] Y Date: 05/04/2025 12:08 Dictated By: Bulmaro Arias M.D. Signed By: 05/04/25 1211 DD/ 1208 TD/TT: Package Line Relief Operator: [facility] Radiology, Radiologist, MD - 05/04/[address] [address] Ultrasound Report Signed Patient: VIMAL FUNES MR#: [id number] : 2000 Acct:[id number] Age/Sex: 25 / F ADM Date: 05/04/25 Loc: [facility] 250-[address]: Rossana Ramos Ordering Physician: Rossana Ramos Date of Service: 05/04/25 Procedure(s): US OB growth Accession Number(s): [id number] cc: Rossana Ramos; JENNIFER SEE [place] [id number] Patient Name: VIMAL FUNES MRN: [id number]:[id number] date: 2000 Sex: F Assigned Patient Location: [facility] Current Patient Location: [facility] Accession/Order Number: [id number] Exam Date: 05/04/2025 12:06 Report Date: 05/04/2025 [...] Jr., D.O. 05/04/2025 12:08 PM Dictation Location: [place] [address] Electronically authenticated by: [id number] Y Date: 05/04/2025 12:08 Dictated By: Bulmaro Arias M.D. Signed By: 05/04/25 1211 DD/ 1208 TD/TT: Package Line Relief Operator: [facility] [employer] Radiology Study observation (narrative) [facility] US OB GROWTHOrdered By: Jeimy zayas Radiology on 05-04-2025 [facility] [employer] Work Phone: Urinalysis macro (dipstick) panel (U)on 04-30-2025 Bilirubin, UA Negative Negative - 4(70) +++ mg/dL [facility] Blood, UA Negative Negative - 50 Jason/mcL [facility] Clarity, UA Clear [facility] Schedule C Systemsca re Color, UA Yellow [facility] Glucose, UA Positive Negative - 2000(110) ++++ mg/dL [facility] Interpretation and review of laboratory results Abnormal [facility] Ketones, UA Negative Negative - 160(16) ++++ mg/dL [facility] Leukocytes, UA Positive Negative - 500+++ Carlos/mcL [facility] Nitrite, UA Negative Negative - Positive [facility] pH, UA 6 5 - 9 [facility] Protein, UA Negative Negative - 1999(20) ++++ mg/dL [facility] Spec Grav, UA 1.01 1 - 1.03 [facility] Urobilinogen, UA 1.0 0.2 - 12 mg/dL [facility] Healthcar e ALL CBC WITH AUTO DIFFon BASOPHILS ABSOLUTE AUTO 0 [facility] Basophils/100 WBC (Bld) 0.2 % 0.2 - 2.0 % [facility] Eosinophils/100 WBC (Bld) 2.2 % 0.9 - 7.0 % [facility] Erythrocyte distribution width (RBC) [Ratio] 12.9 % 11.0 - 15.0 % [facility] Hematocrit (Bld) [Volume fraction] 40 % 36.0 - 48.0 % [facility] Hemoglobin (Bld) [Mass/Vol] 13.6 g/dL 12.0 - 16.0 g/dL [facility] IMMATURE GRANULOCYTES ABS AUTO 0.04 High [facility] Immature granulocytes/100 WBC (Bld) 0.3 % 0.0 - 0.5 % [facility] Interpretation and review of laboratory results Abnormal [facility] LYMPHOCYTES ABSOLUTE AUTO 1.4 [facility] Lymphocytes/100 WBC (Bld) 10.8 % Low 20.5 - 60.0 % [facility] MCH (RBC) [Entitic mass] 31.7 pg 26.7 - 34.0 pg [facility] MCHC (RBC) [Mass/Vol] 34 g/dL 29.9 - 35.2 g/dL [facility] MCV (RBC) [Entitic vol] 93.2 fL 81.0 - 99.0 fL [facility] MONOCYTES ABSOLUTE AUTO 0.5 [facility] Monocytes/100 WBC (Bld) 4.3 % 1.7 - 12.0 % [facility] NEUTROPHILS ABSOLUTE AUTO 10.2 High [facility] Neutrophils/100 WBC (Bld) 82.2 % High 43.0 - 75.0 % [facility] Platelet mean volume (Bld) [Entitic vol] 10.6 fL 9.5 - 13.5 fL [facility] TBH EO # 0.3 [facility] Healthcar e TBH PLT 202 [facility] Healthcar e TB RBC 4.29 [facility] TB WBC 12.5 High [facility] Glucose 1h post 50g loadon 0 04-27-2025 Glucose, 1 hr PP 50GM dose 171 [facility] No Panel Informationon 04-27 [facility] Healthcar e Urinalysis macro (dipstick) panel (U)on 04-25-2025 Bilirubin, UA Negative Negative - 4(70) +++ mg/dL [facility] Blood, UA Negative Negative - 50 Jason/mcL [facility] Healthcare Clarity, UA Clear [facility] Health[facility] re Color, UA Yellow [facility] Healthcar e Glucose, UA Negative Negative - 1999(110) ++++ mg/dL [facility] Interpretation and review of laboratory results Normal [facility] Ketones, UA Negative Negative - 160(16) ++++ mg/dL [facility] Leukocytes, UA Negative Negative - 500+++ Carlos/mcL [facility] Healthcare Nitrite, UA Negative Negative - Positive [facility] pH, UA 6.5 5 - 9 [facility] Healthcar e Protein, UA Negative Negative - 1999(20) ++++ mg/dL [facility] Spec Grav, UA 1.01 1 - 1.03 [facility] Urobilinogen, UA 0.2 0.2 - 12 mg/dL [facility] Urinalysis macro (dipstick) panel (U)on 04-11-2025 Bilirubin, UA Negative Negative - 4(70) +++ mg/dL [facility] Blood, UA Negative Negative - 50 Jsaon/mcL [facility] Healthcare Clarity, UA Clear [facility] re Color, UA Yellow [facility] Healthcar e Glucose, UA Negative Negative - 1999(110) ++++ mg/dL [facility] Interpretation and review of laboratory results Normal [facility] Ketones, UA Negative Negative - 160(16) ++++ mg/dL [facility] Leukocytes, UA Negative Negative - 500+++ Carlos/mcL [facility] Healthcare Nitrite, UA Negative Negative - Positive [facility] pH, UA 7 5 - 9 [facility] Healthcar e Protein, UA Negative Negative - 1999(20) ++++ mg/dL [facility] Spec Grav, UA 1.005 1 - 1.03 [facility] care Urobilinogen, UA 1.0 0.2 - 12 mg/dL [facility] US OB INCOMPLETE ANATOMYon 0 03-25-2025 [place] [address] Ultrasound Report Signed Patient: VIMAL FUNES MR#: [id number] : 2000 Acct:[id number] Age/Sex: 24 / F ADM Date: 03/23/25 Loc: US Attending Dr: Jose Rodriguez D.O. Ordering Physician: Jose Rodriguez D.O. Date of Service: 03/23/25 Procedure(s): US OB incomplete anatomy Accession Number(s): [id number] cc: JENNIFER SEE ; Jose Rodriguez D.O. [place] [id number] Patient Name: VIMAL FUNES MRN: [facility]:[id number] date: 2000 Sex: F Assigned Patient Location: US Current Patient Location: US Accession/Order Number: [id number] Exam Date: 03/25/2025 08:23 Report Date: 03/25/2025 [...] Brown M.D. 03/25/2025 8:25 AM Dictation Location: [place] [address] Electronically authenticated by: [id number] Y Date: 03/25/2025 08:25 Dictated By: Meghana Brown M.D. Signed By: 03/25/25826 DD/ 4 TD/TT: Package Line Relief Operator: [facility] Radiology, Radiologist, - 03/25/2025 [place] [address] Ultrasound Report Signed Patient: VIMAL FUNES MR#: [id number] : 2000 Acct:[id number] Age/Sex: 24 / F ADM Date: 03/23/25 Loc: US Attending Dr: Jose Rodriguez D.O. Ordering Physician: Jose Rodriguez D.O. Date of Service: 03/23/25 Procedure(s): US OB incomplete anatomy Accession Number(s): [id number] cc: JENNIFER SEE ; Jose Rodriguez D.O. [place] [address] Patient Name: VIMAL FUNES MRN: [facility]:[id number] date: 2000 Sex: F Assigned Patient Location: US Current Patient Location: US Accession/Order Number: [id number] Exam Date: 03/25/2025 08:23 Report Date: 03/25/2025 [...] Brown M.D. 03/25/2025 8:25 AM Dictation Location: [place] [address] Electronically authenticated by: [id number] Y Date: 03/25/2025 08:25 Dictated By: Meghana Brown M.D. Signed By: 03/25/25826 DD/ 4 TD/TT: Package Line Relief Operator: [facility] Radiology Study observation (narrative) [facility] US OB INCOMPLETE ANATOMYOrde red By: Radiologist Radiology on 03-25-2025 [facility] [employer] Work Phone: Urinalysis macro (dipstick) panel (U)on 03-14-2025 Bilirubin, UA Negative Negative - 4(70) +++ mg/dL [facility] Blood, UA Negative Negative - 50 Jason/mcL [facility] Clarity, UA Clear [facility] re Color, UA Yellow [facility] e Glucose, UA Negative Negative - 2000(110) ++++ mg/dL [facility] Interpretation and review of laboratory results Normal [facility] Ketones, UA Negative Negative - 160(16) ++++ mg/dL [facility] Leukocytes, UA Negative Negative - 500+++ Carlos/mcL [facility] Nitrite, UA Negative Negative - Positive [facility] pH, UA 7 5 - 9 [facility] Protein, UA Negative Negative - 1999(20) ++++ mg/dL [facility] Spec Grav, UA 1.01 1 - 1.03 [facility] Urobilinogen, UA 0.2 0.2 - 12 mg/dL [facility] Healthcar e No Panel InformationOrdered By: Radiologist Radiology on 03-08-2025 [facility] [employer] Work Phone: No Panel Informationon 03-08 Radiology Study observation (narrative) [facility] US OB ANATOMYon 03-08-2025 [place] [address] Ultrasound Report Signed Patient: VIMAL FUNES MR#: [id number] : 2000 Acct:[id number] Age/Sex: 24 / F ADM Date: 03/08/25 Loc: US Attending Dr: Jose Rodriguez D.O. Ordering Physician: Jose Rodriguez D.O. Date of Service: 03/08/25 Procedure(s): US OB anatomy Accession Number(s): [id number] cc: JENNIFER ESE ; Jose Rodriguez D.O. The [place] [id number] Patient Name: VIMAL FUNES MRN: [facility]:[id number] date: 2000 Sex: F Assigned Patient Location: US Current Patient Location: US Accession/Order Number: [id number] Exam Date: 03/08/2025 20:31 Report Date: 03/08/2025 [...] Knapp M.D. 03/08/2025 8:36 PM Dictation Location: [facility] Electronically authenticated by: [id number] Y Date: 03/08/2025 20:36 Dictated By: Shivam Knapp D.O. Signed By: 03/08/252037 DD/ 35 TD/TT: Package Line Relief Operator: [facility] Radiology, Radiologist, MD - 03/08/2025 The [place] [id number] Ultrasound Report Signed Patient: VIMAL FUNES MR#: [id number] : 2000 Acct:[id number] Age/Sex: 24 / F ADM Date: 03/08/25 Loc: US Attending Dr: Jose Rodriguez D.O. Ordering Physician: Jose Rodriguez D.O. Date of Service: 03/08/25 Procedure(s): US OB anatomy Accession Number(s): [id number] cc: JENNIFER SEE ; Jose Rodriguez D.O. [place] [address] Patient Name: VIMAL FUNES MRN: [id number] date: 2000 Sex: F Assigned Patient Location: US Current Patient Location: US Accession/Order Number: [id number] Exam Date: 03/08/2025 20:31 Report Date: 03/08/2025 [...] Knapp M.D. 03/08/2025 8:36 PM Dictation Location: [employer] Electronically authenticated by: [id number] Y Date: 03/08/2025 20:36 Dictated By: Shivam Knapp D.O. Signed By: 03/08/252037 DD/ 35 TD/TT: Package Line Relief Operator: ARJUN Martinez OB CERVICAL LENGTHon 02-24 [place] [address] Ultrasound Report Signed Patient: VIMAL FUNES MR#: [id number] : 2000 Acct:[id number] Age/Sex: 24 / F ADM Date: 03/08/25 Loc: US Attending Dr: Jose Rodriguez D.O. Ordering Physician: Jose Rodriguez D.O. Date of Service: 03/08/25 Procedure(s): US OB cervical length Accession Number(s): [id number] cc: JENNIFER SEE ; Jose Rodriguez D.O. [place] [address] Patient Name: VIMAL FUNES MRN: [id number] date: 2000 Sex: F Assigned Patient Location: US Current Patient Location: US Accession/Order Number: [id number] Exam Date: 03/08/2025 20:31 Report Date: 03/08/2025 [...] Knapp M.D. 03/08/2025 8:36 PM Dictation Location: [place] [address] Electronically authenticated by: [id number] Y Date: 03/08/2025 20:36 Dictated By: Shivam Knapp D.O. Signed By: 03/08/252037 DD/ 35 TD/TT: Package Line Relief Operator: [facility] Radiology, Radiologist, MD - 03/08/2025 [place] [address] Ultrasound Report Signed Patient: VIMAL FUNES MR#: [id number] : 2000 Acct:[id number] Age/Sex: 24 / F ADM Date: 03/08/25 Loc: US Attending Dr: Jose Rodriguez D.O. Ordering Physician: Jose Rodriguez D.O. Date of Service: 03/08/25 Procedure(s): US OB cervical length Accession Number(s): [id number] cc: JENNIFER SEE ; Jose Rodriguez D.O. The [place] [id number] Patient Name: VIMAL FUNES MRN: [facility]:[id number] date: 2000 Sex: F Assigned Patient Location: US Current Patient Location: US Accession/Order Number: [id number] Exam Date: 03/08/2025 20:31 Report Date: 03/08/2025 [...] Knapp M.D. 03/08/2025 8:36 PM Dictation Location: [employer] Electronically authenticated by: [id number] Y Date: 03/08/2025 20:36 Dictated By: Shivam Knapp D.O. Signed By: 03/08/252037 DD/ 35 TD/TT: Package Line Relief Operator: [facility] IGP,APTIMA HPV,AGE GDLNon AGE GDLN ACOG TESTING Note . [facility] Comment on above: TESTS RESULT FLAG UN ITS REF RANGE LAB Clinician Provided Cytology Information Source.............[employer] of containers..01 ThinPrep Vial Age Algo ACOG Yris... FLAG LEGEND: L-Low Normal,H-High Normal,LL-Alert Low,HH-Alert High <-Panic Low,>-Panic High,A-Abnormal,AA-Critical Abnormal Performed at: 01 =G [facility] [address] [address] Jenise Byrne MD, IGP, RFX APTIMA HPV ASCU Note . [facility] Comment on above: TESTS RESULT FLAG UN ITS REF RANGE LAB DIAGNOSIS: 02 NEGATIVE FOR INTRAEPITHELIAL LESION OR MALIGNANCY. Specimen adequacy: 02 Satisfactory for evaluation. Endocervical and/or squamous metaplastic cells (endocervical component) are present. Performed by: Hussein Alvarez, Warp Coiler ([facility]) . 02 Note: Note [...] High,A-Abnormal,AA-Critical Abnormal Performed at: 02 WB [facility] [address] [place] [address] Jensie Byrne MD, Performed at: = - [address], [place] [id number] Online Content Editor: Jenise Byrne MD, Phone: [phone] Performed at: [facility] [address], [place] [id number] Online Content Editor: Jenise Byrne MD, Phone: [phone] SP[facility]A-[facility]OC[facility]IX [facility] Healthcar e RECURRENT VAGINITIS (HTRX)on 02-22-2025 ATOPOBIUM VAGINAE 0 [facility] ATOPOBIUM VAGINAE Not detected [facility] BVAB 2,3 (BACTERIAL VAGINOSIS ASSOCIATED BACTERIA 2, 3); MOBILUNCUS SPP 0 [facility] BVAB 2,3 (BACTERIAL VAGINOSIS ASSOCIATED BACTERIA 2, 3); MOBILUNCUS SPP Not detected [facility] SIMEON ALBICANS, PARAPSILOSIS, TROPICALIS 0 [facility] Healthcare SIMEON ALBICANS, PARAPSILOSIS, TROPICALIS Not detected [...] TRICHOMONAS VAGINALIS Not detected [facility] Health[facility] e Urinalysis macro (dipstick) panel (U)on 02-20-2025 Bilirubin, UA Negative Negative - 4(70) +++ mg/dL [facility] Blood, UA Negative Negative - 50 Jason/mcL [facility] Clarity, UA Clear [facility] Healthca re Color, UA Yellow [facility] Healthcar e Glucose, UA Negative Negative - 2000(110) ++++ mg/dL [facility] Interpretation and review of laboratory results Abnormal [facility] Ketones, UA Negative Negative - 160(16) ++++ mg/dL [facility] Leukocytes, UA Negative Negative - 500+++ Carlos/mcL [facility] Nitrite, UA Negative Negative - Positive [facility] pH, UA 7 5 - 9 [facility] Healthcar e Protein, UA Negative Negative - 1999(20) ++++ mg/dL [facility] Spec Grav, UA 1.01 1 - 1.03 [facility] Urobilinogen, UA 0.2 0.2 - 12 mg/dL [facility] Unlisted Lab Teston 01-16-20 [facility] Urinalysis macro (dipstick) panel (U)on 01-14-2025 Bilirubin, UA Negative Negative - 4(70) +++ mg/dL [facility] Blood, UA Positive Negative - 50 Jason/mcL [facility] Comment on above: trace-intact Clarity, UA Clear [facility] Healthpr re Color, UA Yellow [facility] Healthcar e Glucose, UA Negative Negative - 1999(110) ++++ mg/dL [facility] Interpretation and review of laboratory results Abnormal [facility] Ketones, UA Negative Negative - 160(16) ++++ mg/dL [facility] Leukocytes, UA Negative Negative - 500+++ Carlos/mcL [facility] Nitrite, UA Negative Negative - Positive [facility] pH, UA 6 5 - 9 [facility] Healthcar e Protein, UA Negative Negative - 1999(20) ++++ mg/dL [facility] Spec Grav, UA 1.005 1 - 1.03 [facility] Urobilinogen, UA 0.2 0.2 - 12 mg/dL [facility] Healthcar e Free Cell DNA (Non-Pro Medica Send Out)on 01-13-2025 [facility] ALL CBC WITH AUTO DIFFon BASOPHILS ABSOLUTE AUTO 0 [facility] Basophils/100 WBC (Bld) 0.4 % 0.2 - 2.0 % [facility] Eosinophils/100 WBC (Bld) 1.7 % 0.9 - 7.0 % [facility] Erythrocyte distribution width (RBC) [Ratio] 12.3 % 11.0 - 15.0 % [facility] Hematocrit (Bld) [Volume fraction] 42.5 % 36.0 - 48.0 % [facility] Hemoglobin (Bld) [Mass/Vol] 14.7 g/dL 12.0 - 16.0 g/dL [facility] IMMATURE GRANULOCYTES ABS AUTO 0.02 [facility] Immature granulocytes/100 WBC (Bld) 0.2 % 0.0 - 0.5 % [facility] Interpretation and review of laboratory results Abnormal [facility] LYMPHOCYTES ABSOLUTE AUTO 1.4 [facility] Lymphocytes/100 WBC (Bld) 15.4 % Low 20.5 - 60.0 % [facility] MCH (RBC) [Entitic mass] 31.6 pg 26.7 - 34.0 pg [facility] MCHC (RBC) [Mass/Vol] 34.6 g/dL 29.9 - 35.2 g/dL [facility] MCV (RBC) [Entitic vol] 91.4 fL 81.0 - 99.0 fL [facility] MONOCYTES ABSOLUTE AUTO 0.5 [facility] Monocytes/100 WBC (Bld) 5.4 % 1.7 - 12.0 % [facility] NEUTROPHILS ABSOLUTE AUTO 7 High [facility] Neutrophils/100 WBC (Bld) 76.9 % High 43.0 - 75.0 % [facility] Platelet mean volume (Bld) [Entitic vol] 10.1 fL 9.5 - 13.5 fL [facility] TBH EO # 0.2 [facility] PLT 216 [facility] RBC 4.65 [facility] WBC 9.2 [facility] CLIN[facility]YNC Hemoglobin A1con 01-05-2025 HbA1c (Bld) [Mass fraction] 5 % 4.0 - 6.0 % [facility] No Panel Informationon 01-05 [facility] US OB TRANSVAGINALon 025 US [...] II, MD, PHD at 14-Dec-2024 08:35:59 PM [facility] Normal Not Available Comment on above: Order Comment: US OB TRANSVAGINAL No LMP recorded. TBH PREG QUANT HCGon 025 HCG QUANTITATIVE 25192 mIU/mL [facility] Comment on above: 5-50 0.2-1 WEEK 50-500 1-2 WEEKS 100-5,000 2-3 WEEKS 500-10,000 3-4 WEEKS 1,000-50,000 4-5 WEEKS 10,000-100,000 5-6 WEEKS 15,000-200,000 6-8 WEEKS 10,000-100,000 2-[facility] PREG QUANT HCGon 025 HCG QUANTITATIVE 6254 mIU/mL [facility] Comment on above: 5-50 0.2-1 WEEK 50-500 1-2 WEEKS 100-5,000 2-3 WEEKS 500-10,000 3-4 WEEKS 1,000-50,000 4-5 WEEKS 10,000-100,000 5-6 WEEKS 15,000-200,000 6-8 WEEKS 10,000-100,000 2-3 [facility] TBH PREG QUANT HCGon 024 HCG QUANTITATIVE 6 mIU/mL [facility] ltare Comment on above: 5-50 0.2-1 WEEK 50-500 1-2 WEEKS 100-5,000 2-3 WEEKS 500-10,000 3-4 WEEKS 1,000-50,000 4-5 WEEKS 10,000-100,000 5-6 WEEKS 15,000-200,000 6-8 WEEKS 10,000-100,000 2-3 MONTHS CL[facility] Healthcar e ALL CBC WITH AUTO DIFFon BASOPHILS ABSOLUTE AUTO 0 [facility] Basophils/100 WBC (Bld) 0.5 % 0.2 - 2.0 % [facility] Eosinophils/100 WBC (Bld) 6.2 % 0.9 - 7.0 % [facility] Erythrocyte distribution width (RBC) [Ratio] 11.9 % 11.0 - 15.0 % [facility] Hematocrit (Bld) [Volume fraction] 43.8 % 36.0 - 48.0 % [facility] Hemoglobin (Bld) [Mass/Vol] 14.8 g/dL 12.0 - 16.0 g/dL [facility] IMMATURE GRANULOCYTES ABS AUTO 0.02 [facility] Immature granulocytes/100 WBC (Bld) 0.2 % 0.0 - 0.5 % [facility] LYMPHOCYTES ABSOLUTE AUTO 2 [facility] Lymphocytes/100 WBC (Bld) 22.1 % 20.5 - 60.0 % [facility] MCH (RBC) [Entitic mass] 31.7 pg 26.7 - 34.0 pg [facility] MCHC (RBC) [Mass/Vol] 33.8 g/dL 29.9 - 35.2 g/dL [facility] MCV (RBC) [Entitic vol] 93.8 fL 81.0 - 99.0 fL [facility] MONOCYTES ABSOLUTE AUTO 0.5 [facility] Monocytes/100 WBC (Bld) 5.3 % 1.7 - 12.0 % [facility] NEUTROPHILS ABSOLUTE AUTO 5.8 [facility] Neutrophils/100 WBC (Bld) 65.7 % 43.0 - 75.0 % [facility] Platelet mean volume (Bld) [Entitic vol] 10 fL 9.5 - 13.5 fL [facility] Healthcare TBH EO # 0.6 [facility] PLT 236 [facility] RBC 4.67 [facility] WBC 8.9 [facility] [place] 08-10-2024 L Specimen: [id number] Received: 08/10/24 Status: CAROL Parker Num: [id number] Spec Type: Surgical Subm Dr: Jose Rodriguez Tissues: A Products of Conception - Spontaneous or Missed (CONTENTS OF CONCEPT Procedures: HE/2, Gross/Agusto L4 Age/ Patient Sex Location Account Attending Physician Vimal Funes / LABELL [id number] Jose Rodriguez SPEC NUM: [id number] RECD: 08/10/24 STATUS: CAROL PARKER NUM: [id number] CAROLIN: 08/10/24-[address]: Jose Rodriguez ENTERED: 08/10/24-1502 [facility] [address]: Nadir,Lab SPEC TYPE: Surgical DEPT: MONICA ALTMAN ENTERED BY: [id number] RECV BY: [id number] ORDERED: HE/2, Gross/Micro L4 ORDERED: HE/2, Gross/Micro [...] villi and decidua. No tissue is identified. Speech Clinician sections of the chorionic villi are submitted in cassette A1 with new accounts representative sections of the decidua is submitted in cassette A2. (2, ss, [id number]) CPT Codes 30024 Specimen: [id number] Received: 08/10/24 Status: CAROL Parker Num: [id number] Spec Type: Surgical Subm Dr: Jose Rodriguez Tissues: A Products of Conception - Spontaneous or Missed (CONTENTS OF CONCEPT Procedures: HE/2, Gross/Micro L4 Patient: Vimal Funes [id number] (Continued) Signed (signature on file) Josh Aragon MD 08/13/24 1647 Normal [facility] TB PREG QUANT HCGon 08-10- 024 HCG QUANTITATIVE 240 mIU/mL [facility] Comment on above: 5-50 0.2-1 WEEK 50-500 1-2 WEEKS 100-5,000 2-3 WEEKS 500-10,000 3-4 WEEKS 1,000-50,000 4-5 WEEKS 10,000-100,000 5-6 WEEKS 15,000-200,000 6-8 WEEKS 10,000-100,000 2-3 MONTHS [facility] CBC WITH AUTO DIFFon BASOPHILS ABSOLUTE AUTO 0.1 [facility] Basophils/100 WBC (Bld) 0.5 % 0.2 - 2.0 % [facility] Eosinophils/100 WBC (Bld) 2.8 % 0.9 - 7.0 % [facility] Erythrocyte distribution width (RBC) [Ratio] 11.9 % 11.0 - 15.0 % [facility] Hematocrit (Bld) [Volume fraction] 44.7 % 36.0 - 48.0 % [facility] Hemoglobin (Bld) [Mass/Vol] 15.3 g/dL 12.0 - 16.0 g/dL [facility] IMMATURE GRANULOCYTES ABS AUTO 0.03 [facility] Immature granulocytes/100 WBC (Bld) 0.3 % 0.0 - 0.5 % [facility] Interpretation and review of laboratory results Abnormal [facility] LYMPHOCYTES ABSOLUTE AUTO 1.6 [facility] Lymphocytes/100 WBC (Bld) 14.9 % Low 20.5 - 60.0 % [facility] MCH (RBC) [Entitic mass] 31.7 pg 26.7 - 34.0 pg [facility] MCHC (RBC) [Mass/Vol] 34.2 g/dL 29.9 - 35.2 g/dL [facility] MCV (RBC) [Entitic vol] 92.7 fL 81.0 - 99.0 fL [facility] MONOCYTES ABSOLUTE AUTO 0.4 [facility] Monocytes/100 WBC (Bld) 3.7 % 1.7 - 12.0 % [facility] NEUTROPHILS ABSOLUTE AUTO 8.2 High [facility] Neutrophils/100 WBC (Bld) 77.8 % High 43.0 - 75.0 % [facility] Platelet mean volume (Bld) [Entitic vol] 10 fL 9.5 - 13.5 fL [facility] TBH EO # 0.3 [facility] Healthcar e TBH PLT 263 [facility] TB RBC 4.82 [facility] Healthcar e TB WBC 10.6 [facility] Healthcar e CLINISYNC No Panel Informationon 07-21 [facility] Healthcar e TBH DRUG SCREEN RAPID (URINE )on 07-21-2024 AMPHETAMINE SCREEN URINE Negative NEGATIVE [facility] BARBITURATES SCREEN URINE Negative NEGATIVE [facility] BENZODIAZEPINES SCREEN URINE Negative NEGATIVE [facility] BUPRENORPHINE SCREEN URINE Negative NEGATIVE [facility] Comment on above: DRUG CLASS TEST [...] [facility] COCAINE SCREEN URINE Negative NEGATIVE [facility] METHADONE SCREEN URINE Negative NEGATIVE NO [facility] METHAMPHETAMINES SCREEN URINE Negative NEGATIVE [facility] OPIATE SCREEN URINE Negative NEGATIVE [facility] OXYCODONE SCREEN URINE Negative NEGATIVE [facility] PHENCYCLIDINE SCREEN URINE Negative NEGATIVE [facility] TRICYCLIC ANTIDEPRESSANT URINE Negative NEGATIVE [facility] REEFLEX IF POSITIVE CLINISYNC HCG ( test) Ql (U)o n 06-29-2024 Interpretation and review of laboratory results Abnormal [facility] Preg Test, Ur Positive [facility] care [facility] Urinalysis macro (dipstick) panel (U)on 06-29-2024 Bilirubin, UA Negative Negative - 4(70) +++ mg/dL [facility] Blood, UA Negative Negative - 50 Jason/mcL [facility] Clarity, UA Clear [facility] re Color, UA Yellow [facility] Healthcar e Glucose, UA Negative Negative - 1999(110) ++++ mg/dL [facility] Interpretation and review of laboratory results Normal [facility] Ketones, UA Negative Negative - 160(16) ++++ mg/dL [facility] Leukocytes, UA Negative Negative - 500+++ Carlos/mcL [facility] Nitrite, UA Negative Negative - Positive [facility] pH, UA 7.0 5 - 9 [facility] Healthcar e Protein, UA Negative Negative - 1999(20) ++++ mg/dL [facility] Spec Grav, UA 1.015 1 - 1.03 [facility] Urobilinogen, UA 0.2 0.2 - 12 mg/dL [facility] XR hand RT min 3V*on 023 XR hand RT min 3V* [facility] [employer] [facility] [employer] Other XR hand RT min 3V* [facility] [employer] Other XR hand RT min 3V* [address] [facility] [employer] [facility] [employer] Other XR hand RT min 3V* [place] [address] [employer] [facility] [employer] Other XR hand RT min 3V* XRay Report [employer] Other XR hand RT min 3V* Signed [employer] Other XR hand RT min 3V* Patient: Vimal Funes MR#: [id number] [employer] Other XR hand RT min 3V* 18 [employer] Other XR hand RT min 3V* : 2000 Acct:[id number] [employer] Other XR hand RT min 3V* Age/Sex: 22 / F ADM Date: 12/26/22 [employer] Other XR hand RT min 3V* Loc: XDUCLY Room: Type: REG CLI [employer] Other XR hand RT min 3V* Attending Dr: Jennifer GIL [employer] Other XR hand RT min 3V* Copies to: JEFFERY Rodriguez [employer] Other XR hand RT min 3V* Ordering Provider: JEFFERY Rodriguez [employer] Other XR hand RT min 3V* Date of Service: 12/26/22 [employer] Other XR hand RT min 3V* XR/XR hand RT min 3V*: RIGHT HAND INJURY [employer] Other XR hand RT min 3V* RIGHT HAND - 4 views [employer] Other XR hand RT min 3V* REASON FOR EXAM: Patient had right thumb hyperextended yesterday when trying to open the door. Now [employer] Other XR hand RT min 3V* with pain. [employer] Other XR hand RT min 3V* COMPARISON: None [employer] Other XR hand RT min 3V* FINDINGS: [employer] Other XR hand RT min 3V* No focal soft tissue abnormality. There appears to be avulsion fracture involving the base of the [employer] Other XR hand RT min 3V* distal phalanx of the thumb. Joint spaces appear maintained. No bony erosions. [employer] Other XR hand RT min 3V* XR/XR hand RT min 3V* [employer] Other XR hand RT min 3V* IMPRESSION: [employer] Other XR hand RT min 3V* AVULSION FRACTURE INVOLVING THE BASE OF THE DISTAL PHALANX OF THE THUMB. [employer] Other XR hand RT min 3V* Impression dictated by: Bulmaro Arias Jr., DGeneOGene12/26/2022 1:44 PM [employer] Other XR hand RT min 3V* Dictation Location: [place] [address] [employer] Other XR hand RT min 3V* Transcribed By: PWS 12/26/22 [facility] [employer] Other XR hand RT min 3V* Dictated By: Bulmaro Arias Jr, DO 12/26/22 [facility] [employer] Other XR hand RT min 3V* Signed By: [employer] Other XR hand RT min 3V* 12/26/[address] [place] [address] [employer] Other PAP ACOG PANEL 2: 22 to 30on 11-09-2022 . . Normal [facility] Comment on above: Performed By: #### [id number] ####[facility] [address] [place] [id number] Mancini Age Gdln ACOG Testing - Normal [facility] Comment on above: Performed By: #### 4 [id number] ####[facility] [address] [place], [place] [address]KkGene Mancini DIAGNOSIS: Comment Normal [facility] Comment on above: Result Comment: NEGA TIVE FOR INTRAEPITHELIAL LESION OR MALIGNANCY. Performed By: #### 4 [id number] ####[facility] [address] [place], [place] [address]DrGene Mancini Methodology: Comment Normal [facility] Comment on above: Result Comment: This liquid based ThinPrep(R) pap test was screened with the use of an image guided system. Performed By: #### 4 [id number] ####[facility] [address] [place], [place] [address]DrGene Mancini Note: Comment Normal [facility] Comment on above: Result Comment: The Pap smear is a screening test designed to aid in the detection of premalignant and malignant conditions of the uterine cervix. It is not a diagnostic procedure and should not be used as the sole means of detecting cervical cancer. Both false-positive and false-negative reports do occur. . Performed By: #### 4 [id number] ####[place] [address]DrGene Mancini Performed by: Comment Normal [facility] Comment on above: Result Comment: Zuleima Lin, Hand Trimmer (ASCP) Performed By: #### [id number] ####[facility] [address] [place], [place] [address]DrGene Mancini Reflex Criteria: Comment Normal [facility] Comment on above: Result Comment: The HPV DNA reflex criteria were not met with this specimen result therefore, no HPV testing was performed. . Performed By: #### 4 [id number] ####[facility] [address] [place], [place] [address]DrGene Mancini Specimen adequacy: Comment Normal [facility] Comment on above: Result Comment: Sati sfactory for evaluation. Endocervical and/or squamous metaplastic cells (endocervical component) are present. Performed By: #### 4 [id number] ####[facility] [address] [place], [place] [address]DrGene Mancini Cytology Cervical or vaginal smear or scraping studyOrdered By: Jael Nix on 11-02-2022 [facility] CBC AUTO DIFFon 08-11-2022 BASO # 0.0 103/ul Normal 0.0-0.1 [facility] Comment on above: Performed By: #### C T/NGNA #### [facility] [address] [place] [address] Dr. Donis Mancini Basophils/100 WBC (Bld) 0.2 % Normal 0.2-2.0 [facility] Comment on above: Performed By: #### C T/NGNA #### [facility] [address] [place] [address] Dr. Donis Mancini EO # 0.1 103/ul Normal 0.0-0.7 [facility] Comment on above: Performed By: #### C T/NGNA #### [facility] [address] [place] [address] Dr. Donis Mancini Eosinophils/100 WBC (Bld) 0.5 % Critically low 0.9-7.0 [facility] Comment on above: Performed By: #### C T/NGNA #### [facility] [address] [place] [address] Dr. Donis Mancini Erythrocyte distribution width (RBC) [Ratio] 12.5 % Normal 11.0-15.0 [facility] Comment on above: Performed By: #### C T/NGNA #### [facility] [address] [place] [address] Dr. Donis Mancini Hematocrit (Bld) [Volume fraction] 35.9 % Critically low 36.0-48.0 [facility] Comment on above: Performed By: #### C T/NGNA #### [facility] [address] [place] [address] Dr. Donis Mancini Hemoglobin (Bld) [Mass/Vol] 12.4 g/dL Normal 12.0-16.0 [facility] Comment on above: Result Comment: michelet ent delivered Performed By: #### C T/NGNA #### [facility] [address] [place] [address] Dr. Donis Mancini IG # 0.10 10e3/ul Critically high 0.00-0.03 [facility] Comment on above: Performed By: #### C T/NGNA #### [facility] [address] [place] [address] [address] Donis Mancini IG % 0.5 % Normal 0.0-0.5 [facility] Comment on above: Performed By: #### C T/NGNA #### [facility] [address] [place] [address] Dr. Donis Mancini LYMPH # 1.5 103/ul Normal 1.2-3.8 [facility] Comment on above: Performed By: #### C T/NGNA #### [facility] [address] [place] [address] Dr. Donis Mancini Lymphocytes/100 WBC (Bld) 7.6 % Critically low 20.5-60.0 [facility] Comment on above: Performed By: #### C T/NGNA #### [facility] [address] [place] [address] Dr. Donis Mancini MANUAL DIFF REQ NO Normal [facility] Comment on above: Performed By: #### C T/NGNA #### [facility] [address] [place] [address] Dr. Donis Mancini MCH (RBC) [Entitic mass] 32.2 pg Normal 26.7-34.0 [facility] Comment on above: Performed By: #### C T/NGNA #### [facility] [address] [place] [address] Dr. Donis Mancini MCHC (RBC) [Mass/Vol] 34.5 g/dL Normal 29.9-35.2 [facility] Comment on above: Performed By: #### C T/NGNA #### [facility] [address] [place] [address] Dr. Donis Mancini MCV (RBC) [Entitic vol] 93.2 fL Normal 81.0-99.0 [facility] Comment on above: Performed By: #### C T/NGNA #### [facility] [address] [place] [address] Dr. Donis Mancini MONO # 1.3 103/ul Critically high 0.3-0.[address] [facility] Comment on above: Performed By: #### C T/NGNA #### [facility] [address] [place] [address] [address] Donis Mancini Monocytes/100 WBC (Bld) 6.8 % Normal 1.7-12.0 [facility] Comment on above: Performed By: #### C T/NGNA #### [facility] [address] [place] [address] [address] Donis Mancini NEUT # 16.2 103/ul Critically high 1.4-6.5 [facility] Comment on above: Performed By: #### C T/NGNA #### [facility] [address] [place] [address] Dr. Donis Mancini Neutrophils/100 WBC (Bld) 84.4 % Critically high 43.0-75.0 [facility] Comment on above: Performed By: #### C T/NGNA #### [facility] [address] [place] [address] Dr. Donis Mancini Platelet mean volume (Bld) [Entitic vol] 11.8 fL Normal 9.5-13.5 [facility] Comment on above: Performed By: #### C T/NGNA #### [facility] [address] [place] [address] [address] Donis Mancini PLT 156 103/ul Normal 150-450 [facility] Comment on above: Performed By: #### C T/NGNA #### [facility] [address] [place] [address] Dr. Donis Mancini RBC 3.85 106/ul Critically low 4.20-5.[address] [facility] Comment on above: Performed By: #### C T/NGNA #### [facility] [address] [place] [address] Dr. Donis Mancini WBC 19.2 103/ul Critically high 4.0-11.0 [facility] [facility] Comment on above: Performed By: #### C T/NGNA #### [facility] [address] [place] [address] Dr. Donis Mancini Covid-19 PCR ([facility])on 07-27 SARS-CoV-2 (COVID-19) RNA INESSA+probe Ql (Unsp spec) Not detected Normal NOT DETECTED [facility] Comment on above: Result Comment: When [...] for this test is supported by the Rug Drying Machine Operator of Health and Human Service's declaration that [...] be used). Performed By: #### C VDTBH ####[facility] [address] [place], [place] [address]Dr. javi [facility] DRUG SCREEN RAPID (URINE)on 08-10-2022 AMP Negative Normal NEGATIVE [facility] Comment on above: Performed By: #### D RUGRPD ####[facility] [address] [place], [place] [address]Dr. Donis Mancini BAR Negative Normal NEGATIVE [facility] Comment on above: Performed By: #### D RUGRPD ####[facility] [address] [place] [address]Dr. Donis Mancini BUP Negative Normal NEGATIVE [facility] Comment on above: Performed By: #### D RUGRPD ####[facility] [address] [place] [address]Dr. javi Mancini BZO Negative Normal NEGATIVE [facility] Comment on above: Performed By: #### D RUGRPD ####[facility] [address] [place] [id number]. Donis Mancini ALEXA Negative Normal NEGATIVE [facility] Comment on above: Performed By: #### D RUGRPD ####[facility] Ruf[address] [place], [place] [id number]. Donis Mancini CUT-OFFS SEE BELOW Normal [facility] Comment on above: [...] 300 ng/mL Performed By: #### D RUGRPD ####[facility] Z[address]nt[address] [place], [place] [address]Dr. Donis Mancini DRUG CUT HEADER DRUG CLASS TEST SYSTEM CUT-OFF CONCENTRATIONS ARE FOLLOWS: Normal [facility] Comment on above: Performed By: #### D RUGRPD ####[facility] [address] [place], [place] [address]Dr. Donis Mancini mAMP Negative Normal NEGATIVE [facility] Comment on above: Performed By: #### D RUGRPD ####[facility] Mk[address] [place], [place] [address]Dr. Donis Mancini MTD Negative Normal NEGATIVE [facility] Comment on above: Performed By: #### D RUGRPD ####[facility] Qcphe[address]qstu[address] [place], [place] [address]Dr. Donis Mancini OPI Negative Normal NEGATIVE [facility] Comment on above: Performed By: #### D RUGRPD ####[facility] [address] [place], [place] [address]Dr. Donis Mancini OXY Negative Normal NEGATIVE [facility] Comment on above: Performed By: #### D RUGRPD ####[facility] I[address]ub[address] [place], [place] [address]Dr. Donis Mancini PCP Negative Normal NEGATIVE [facility] Comment on above: Performed By: #### D RUGRPD ####[facility] [address] [place] [phone]. Donis Mancini PPX Negative Normal NEGATIVE [facility] Comment on above: Performed By: #### D RUGRPD ####[facility] [address] [place], [place] [address]Gf. Donis Mancini TCA Negative Normal NEGATIVE [facility] Comment on above: Performed By: #### D RUGRPD ####[facility] [address] [place] [phone]. Donis Mancini THC Negative Normal NEGATIVE [facility] Comment on above: Performed By: #### D RUGRPD ####[facility] [address] [place] [address]Dr. Donis Mancini TYPE AND SCREENon 08-10-2022 TYPE AND SCREEN Negative Normal [facility] Comment on above: Performed By: #### T NS ####[facility] Ningnoxpel[address] [place] [address]Dr. Donis Mancini US PREG BIOPHY W NON [...] ESTEFANY BENNETT Date: 2022-08-10 07:18 Normal [facility] US PREG GROWTHon 08-10-2022 US PREG [...] ESTEFANY BENNETT Date: 2022-08-10 07:16 Normal [facility] CBC AUTO DIFFon 08-09-2022 BASO # 0.0 103/ul Normal 0.0-0.1 [facility] Comment on above: Performed By: #### C BC ####[facility] [address] [place], [place] [address]Dr. Donis Mancini Basophils/100 WBC (Bld) 0.2 % Normal 0.2-2.0 [facility] Comment on above: Performed By: #### C BC ####[facility] [address]il[address] [place], [place] [address]Dr. Donis Mancini EO # 0.4 103/ul Normal 0.0-0.7 [facility] Comment on above: Performed By: #### C BC ####[facility] [address] [place], [place] [address]Dr. Donis Mancini Eosinophils/100 WBC (Bld) 2.8 % Normal 0.9-7.0 [facility] Comment on above: Performed By: #### C BC ####[facility] S[address]rm[address] [place], [place] [address]Dr. Donis Mancini Erythrocyte distribution width (RBC) [Ratio] 12.2 % Normal 11.0-15.0 [facility] Comment on above: Performed By: #### C BC ####[facility] [address] [place], [place] [address]Dr. Donis Mancini Hematocrit (Bld) [Volume fraction] 41.4 % Normal 36.0-48.0 [facility] Comment on above: Performed By: #### C BC ####[facility] [address] [place] [phone]. Donis Mancini Hemoglobin (Bld) [Mass/Vol] 14.4 g/dL Normal 12.0-16.0 [facility] Comment on above: Performed By: #### C BC ####[facility] X[address]ch[address]ws[address] [place] [phone]. Donis Mancini IG # 0.06 10e3/ul Critically high 0.00-0.03 [facility] Comment on above: Performed By: #### C BC ####[facility] [address] [place] [address]Dr. Donis Mancini IG % 0.5 % Normal 0.0-0.5 [facility] Comment on above: Performed By: #### C BC ####[facility] Q[address] [place] [address]Dr. Donis Mancini LYMPH # 1.5 103/ul Normal 1.2-3.8 [facility] Comment on above: Performed By: #### C BC ####[facility] [address]xt[address] [place] [address]Dr. Donis Mancini Lymphocytes/100 WBC (Bld) 11.7 % Critically low 20.5-60.0 [facility] Comment on above: Performed By: #### C BC ####[facility] [address] [place] [address]Dr. Donis Mancini MANUAL DIFF REQ NO Normal [facility] Comment on above: Performed By: #### C BC ####[facility] [address] [place] [phone]. Donis Mancini MCH (RBC) [Entitic mass] 31.9 pg Normal 26.7-34.0 [facility] Comment on above: Performed By: #### C BC ####[facility] [address]ns[address]icp[address] [place] [phone]. Donis Mancini MCHC (RBC) [Mass/Vol] 34.8 g/dL Normal 29.9-35.2 [facility] Comment on above: Performed By: #### C BC ####[facility] [address]dm[address] [place] [phone]. Donis Mancini MCV (RBC) [Entitic vol] 91.8 fL Normal 81.0-99.0 [facility] Comment on above: Performed By: #### C BC ####[facility] [address]sexqlshs[address] [place] [phone]. Donis Mancini MONO # 1.0 103/ul Critically high 0.3-0.[address] [facility] Comment on above: Performed By: #### C BC ####[facility] [address] [place] [phone]. Donis Mancini Monocytes/100 WBC (Bld) 7.5 % Normal 1.7-12.0 [facility] Comment on above: Performed By: #### C BC ####[facility] [address] [place], [place] [address]Dr. Donis Mancini NEUT # 10.0 103/ul Critically high 1.4-6.5 [facility] Comment on above: Performed By: #### C BC ####[facility] [address] [place], [place] [address]Dr. Donis Mancini Neutrophils/100 WBC (Bld) 77.3 % Critically high 43.0-75.0 [facility] Comment on above: Performed By: #### C BC ####[facility] [address] [place], [place] [address]Dr. Donis Mancini Platelet mean volume (Bld) [Entitic vol] 11.6 fL Normal 9.5-13.5 [facility] Comment on above: Performed By: #### C BC ####[facility] [address] [place] [phone]. Donis Mancini PLT 184 103/ul Normal 150-450 [facility] Comment on above: Performed By: #### C BC ####[facility] [address] [place] [phone]. Donis Mancini RBC 4.51 106/ul Normal 4.20-5.40 [facility] Comment on above: Performed By: #### C BC ####[facility] [address] [place], [place] [address]GnDr. Donis Mancini WBC 12.9 103/ul Critically high 4.0-11.0 [facility] Comment on above: Performed By: #### C BC ####[facility] [address] [place], [place] [address]NfDr. Donis Mancini LDHon 08-09-2022 LDH 167 U/L Normal 81-234 [facility] Comment on above: Performed By: #### C T/NGNA #### [facility] [address] [place] [address] [address] Donis Mancini PROF 14(COMP METB)on 022 Albumin [Mass/Vol] 2.7 g/dL Critically low 3.4-5.0 [facility] Comment on above: Performed By: #### C T/NGNA #### [facility] [address] [place] [address] [address] Donis Mancini Albumin/Globulin [Mass ratio] 0.6 {ratio} Normal [facility] Comment on above: Performed By: #### C T/NGNA #### [facility] [address] [place] [address] [address] Donis Mancini ALP [Catalytic activity/Vol] 176 U/L Critically high 46-116 [facility] Comment on above: Performed By: #### C T/NGNA #### [facility] [address] [place] [address] [address] Donis Mancini ALT [Catalytic activity/Vol] 20 U/L Normal 14-59 [facility] Comment on above: Performed By: #### C T/NGNA #### [facility] [address] [place] [address] [address] Donis Mancini Anion gap [Moles/Vol] 12.9 mmol/L Normal [facility] Comment on above: Performed By: #### C T/NGNA #### [facility] [address] [place] [address] Dr. Donis Mancini AST [Catalytic activity/Vol] 20 U/L Normal 15-37 [facility] Comment on above: Performed By: #### C T/NGNA #### [facility] [address] [place] [address] [address] Donis Mancini Bilirubin [Mass/Vol] 0.1 mg/dL Critically low 0.2-1.0 [facility] Comment on above: Performed By: #### C T/NGNA #### [facility] [address] [place] [address] [address] Donis Mancini Calcium [Mass/Vol] 9.1 mg/dL Normal 8.5-10.1 [facility] Comment on above: Performed By: #### C T/NGNA #### [facility] [address] [place] [address] [address] Donis Mancini Chloride [Moles/Vol] 104 mmol/L Normal 98-107 [facility] Comment on above: Performed By: #### C T/NGNA #### [facility] [address] [place] [address] [address] Donis Mancini CO2 [Moles/Vol] 22.9 mmol/L Normal 21.0-32.0 [facility] Comment on above: Performed By: #### C T/NGNA #### [facility] [address] [place] [address] Dr. Donis Mancini Creatinine [Mass/Vol] 0.43 mg/dL Critically low 0.55-1.02 [facility] Comment on above: Performed By: #### C T/NGNA #### [facility] [address] [place] [address] [address] Donis Mancini EGFR-AF DUTCH >60 Normal >=60 [facility] Comment on above: Performed By: #### C T/NGNA #### [facility] [address] [place] [address] [address] Donis Mancini EGFR-NON AF DUTCH >60 Normal >=60 [facility] Comment on above: Performed By: #### C T/NGNA #### [facility] [address] [place] [address] Dr. Donis Mancini Globulin (S) [Mass/Vol] 4.2 g/dL Normal [facility] Comment on above: Performed By: #### C T/NGNA #### [facility] [address] [place] [address] [address] Donis Mancini Glucose [Mass/Vol] 95 mg/dL Normal 74-106 [facility] Comment on above: Performed By: #### C T/NGNA #### [facility] [address] [place] [address] Dr. Donis Mancini Potassium [Moles/Vol] 3.8 mmol/L Normal 3.5-5.1 [facility] Comment on above: Performed By: #### C T/NGNA #### [facility] [address] [place] [address] Dr. Donis Mancini Protein [Mass/Vol] 6.9 g/dL Normal 6.4-8.2 [facility] Comment on above: Performed By: #### C T/NGNA #### [facility] [address] [place] [address] Dr. Donis Mancini Sodium [Moles/Vol] 136 mmol/L Normal 136-145 [facility] Comment on above: Performed By: #### C T/NGNA #### [facility] [address] [place] [address] Dr. Donis Mancini Urea nitrogen [Mass/Vol] 10.0 mg/dL Normal 7.0-18.0 [facility] Comment on above: Performed By: #### C T/NGNA #### [facility] [address] [place] [address] Dr. Donis Mancini Urea nitrogen/Creatinine [Mass ratio] 23.3 mg/mg Normal [facility] Comment on above: Performed By: #### C T/NGNA #### [facility] [address] [place] [address] Dr. Donis Mancini URIC ACID SERUMon 08-09-2022 Urate [Mass/Vol] 3.6 mg/dL Normal 2.6-6.0 [facility] Comment on above: Performed By: #### C T/NGNA #### [facility] [address] [place] [address] Dr. Donis Mancini CBC AUTO DIFFon 08-07-2022 BASO # 0.0 103/ul Normal 0.0-0.1 [facility] Comment on above: Performed By: #### U AMIC #### [facility] [address] [place] [address] [address] Donis Mancini Basophils/100 WBC (Bld) 0.2 % Normal 0.2-2.0 [facility] Comment on above: Performed By: #### U AMIC #### [facility] [address] [place] [address] [address] Donis Mancini EO # 0.2 103/ul Normal 0.0-0.7 [facility] Comment on above: Performed By: #### U AMIC #### [facility] [address] [place] [address] Dr. Donis Mancini Eosinophils/100 WBC (Bld) 1.8 % Normal 0.9-7.0 [facility] Comment on above: Performed By: #### U AMIC #### [facility] [address] [place] [address] [address] Donis Mancini Erythrocyte distribution width (RBC) [Ratio] 12.3 % Normal 11.0-15.0 [facility] Comment on above: Performed By: #### U AMIC #### [facility] [address] [place] [address] Dr. Donis Mancini Hematocrit (Bld) [Volume fraction] 45.7 % Normal 36.0-48.0 [facility] Comment on above: Performed By: #### U AMIC #### [facility] [address] [place] [address] [address] Donis Mancini Hemoglobin (Bld) [Mass/Vol] 16.0 g/dL Normal 12.0-16.0 [facility] Comment on above: Performed By: #### U AMIC #### [facility] [address] [place] [address] [address] Donis Mancini IG # 0.07 10e3/ul Critically high 0.00-0.03 [facility] Comment on above: Performed By: #### U AMIC #### [facility] [address] [place] [address] [address] Donis Mancini IG % 0.5 % Normal 0.0-0.5 [facility] Comment on above: Performed By: #### U AMIC #### [facility] [address] [place] [address] [address] Donis Mancini LYMPH # 1.5 103/ul Normal 1.2-3.8 [facility] Comment on above: Performed By: #### U AMIC #### [facility] [address] [place] [address] [address] Donis Mancini Lymphocytes/100 WBC (Bld) 11.2 % Critically low 20.5-60.0 [facility] Comment on above: Performed By: #### U AMIC #### [facility] [address] [place] [address] Dr. Donis Mancini MANUAL DIFF REQ NO Normal [facility] Comment on above: Performed By: #### U AMIC #### [facility] [address] [place] [address] [address] Donis Mancini MCH (RBC) [Entitic mass] 32.0 pg Normal 26.7-34.0 [facility] Comment on above: Performed By: #### U AMIC #### [facility] [address] [place] [address] Dr. Donis Mancini MCHC (RBC) [Mass/Vol] 35.0 g/dL Normal 29.9-35.2 [facility] Comment on above: Performed By: #### U AMIC #### [facility] [address] [place] [address] [address] Donis Mancini MCV (RBC) [Entitic vol] 91.4 fL Normal 81.0-99.0 [facility] Comment on above: Performed By: #### U AMIC #### [facility] [address] [place] [address] Dr. Donis Mancini MONO # 0.9 103/ul Critically high 0.3-0.[address] [facility] Comment on above: Performed By: #### U AMIC #### [facility] [address] [place] [address] [address] Donsi Mancini Monocytes/100 WBC (Bld) 6.3 % Normal 1.7-12.0 [facility] Comment on above: Performed By: #### U AMIC #### [facility] [address] [place] [address] [address] Donis Mancini NEUT # 10.9 103/ul Critically high 1.4-6.5 [facility] Comment on above: Performed By: #### U AMIC #### [facility] [address] [place] [address] [address] Donis Mancini Neutrophils/100 WBC (Bld) 80.0 % Critically high 43.0-75.0 [facility] Comment on above: Performed By: #### U AMIC #### [facility] [address] [place] [address] [address] Donis Mancini Platelet mean volume (Bld) [Entitic vol] 11.5 fL Normal 9.5-13.5 [facility] Comment on above: Performed By: #### U AMIC #### [facility] [address] [place] [address] [address] Donis Mancini PLT 182 103/ul Normal 150-450 [facility] Comment on above: Performed By: #### U AMIC #### [facility] [address] [place] [address] [address] Donis Mancini RBC 5.00 106/ul Normal 4.20-5.40 [facility] Comment on above: Performed By: #### U AMIC #### [facility] [address] [place] [address] [address] Donis Mancini WBC 13.6 103/ul Critically high 4.0-11.0 [facility] Comment on above: Performed By: #### U AMIC #### [facility] [address] [place] [address] [address] Donis Mancini LDHon 08-07-2022 LDH 171 U/L Normal 81-234 [facility] Comment on above: Performed By: #### C MP, URIC, LDH ####[facility] [address] [place] [address]Dr. Donis Mancini PROF 14(COMP METB)on 022 Albumin [Mass/Vol] 2.9 g/dL Critically low 3.4-5.0 [facility] Comment on above: Performed By: #### C MP, URIC, LDH ####[facility] [address] [place] [address]Dr. Donis Mancini Albumin/Globulin [Mass ratio] 0.6 {ratio} Normal [facility] Comment on above: Performed By: #### C MP, URIC, LDH ####[facility] [address] [place] [address]Dr. Donis Mancini ALP [Catalytic activity/Vol] 192 U/L Critically high 46-116 [facility] Comment on above: Performed By: #### C MP, URIC, LDH ####[facility] [address] [place], [place] [address]Dr. Donis Mancini ALT [Catalytic activity/Vol] 23 U/L Normal 14-59 [facility] Comment on above: Performed By: #### C MP, URIC, LDH ####[facility] [address] [place] [address]Dr. Donis Mancini Anion gap [Moles/Vol] 14.4 mmol/L Normal [facility] Comment on above: Performed By: #### C MP, URIC, LDH ####[facility] [address] [place], [place] [address]Dr. Donis Mancini AST [Catalytic activity/Vol] 23 U/L Normal 15-37 [facility] Comment on above: Performed By: #### C MP, URIC, LDH ####[facility] [address] [place] [address]Dr. Donis Mancini Bilirubin [Mass/Vol] 0.2 mg/dL Normal 0.2-1.0 [facility] Comment on above: Performed By: #### C MP, URIC, LDH ####[facility] [address] [place] [address]Dr. Donis Mancini Calcium [Mass/Vol] 9.4 mg/dL Normal 8.5-10.1 [facility] Comment on above: Performed By: #### C MP, URIC, LDH ####[facility] [address] [place] [address]Dr. Laceyjavi Live Chloride [Moles/Vol] 104 mmol/L Normal 98-107 [facility] Comment on above: Performed By: #### C MP, URIC, LDH ####[facility] [address] [place] [address]Dr. Laceyajvi Live CO2 [Moles/Vol] 21.7 mmol/L Normal 21.0-32.0 [facility] Comment on above: Performed By: #### C MP, URIC, LDH ####[facility] [address] [place], [place] [address]Dr. Donis Mancini Creatinine [Mass/Vol] 0.46 mg/dL Critically low 0.55-1.02 [facility] Comment on above: Performed By: #### C MP, URIC, LDH ####[facility] [address] [place], [place] [address]Dr. Donis Live EGFR-AF DUTCH >60 Normal >=60 [facility] Comment on above: Performed By: #### C MP, URIC, LDH ####[facility] [address] [place], [place] [address]Dr. Laceyjavi Live EGFR-NON AF DUTCH >60 Normal >=60 [facility] Comment on above: Performed By: #### C MP, URIC, LDH ####[facility] [address] [place] [address]Dr. Donis Mancini Globulin (S) [Mass/Vol] 4.6 g/dL Normal [facility] Comment on above: Performed By: #### C MP, URIC, LDH ####[facility] [address] [place] [address]Dr. Donis Mancini Glucose [Mass/Vol] 89 mg/dL Normal 74-106 [facility] Comment on above: Performed By: #### C MP, URIC, LDH ####[facility] [address]ie[address] [place] [address]Dr. Donis Mancini Potassium [Moles/Vol] 4.1 mmol/L Normal 3.5-5.1 [facility] Comment on above: Performed By: #### C MP, URIC, LDH ####[facility] [address] [place] [address]Dr. Donis Mancini Protein [Mass/Vol] 7.5 g/dL Normal 6.4-8.2 [facility] Comment on above: Performed By: #### C MP, URIC, LDH ####[facility] [address] [place] [address]Dr. Donis Mancini Sodium [Moles/Vol] 136 mmol/L Normal 136-145 [facility] Comment on above: Performed By: #### C MP, URIC, LDH ####[facility] [address] [place] [address]Dr. Donis Mancini Urea nitrogen [Mass/Vol] 8.0 mg/dL Normal 7.0-18.0 [facility] Comment on above: Performed By: #### C MP, URIC, LDH ####[facility] [address] [place] [address]Dr. Donis Mancini Urea nitrogen/Creatinine [Mass ratio] 17.4 mg/mg Normal [facility] Comment on above: Performed By: #### C MP, URIC, LDH ####[facility] [address] [place] [address]DrGene Mancini PROTIMEon 08-07-2022 INR Coag (PPP) [Relative time] {INR} Normal [facility] Comment on above: Performed By: #### U AMIC #### [facility] [address] [place] [address] [address] Donis Mancini INR GUIDELINES SEE BELOW Normal [facility] Comment on above: Result Comment: NICCI RED INR: 2.0 - 3.0 CONDITIONS NOT LISTED BELOW 2.5 - 3.5 FOR PROSTHETIC HEART VALVE REPLACEMENT 2.5 - 3.5 RECURRENT THROMBOSIS Performed By: #### U AMIC #### [facility] [address] [place] [address] [address] Donis Mancini PT Coag (PPP) [Time] 9.8 s Normal 9.0-11.6 [facility] Comment on above: Performed By: #### U AMIC #### [facility] [address] [place] [address] Dr. Donis Mancini PTTon 08-07-2022 aPTT Coag (Bld) [Time] 28.5 s Normal 22.3-36.2 [facility] Comment on above: Performed By: #### U AMIC #### [facility] [address] [place] [address] Dr. Donis Mancini UA (CLEAN/CATCH) AIR POLLUTION COMPLIANCE INSPECTOR/MICRO I F IND.on 08-07-2022 Bilirubin Ql (U) Negative Normal NEGATIVE [facility] Comment on above: Performed By: #### U AMIC #### [facility] [address] [place] [address] Dr. Donis Mancini Clarity (U) CLEAR Normal CLEAR [facility] Comment on above: Performed By: #### U AMIC #### [facility] [address] [place] [address] Dr. Donis Mancini Color (U) LT. YELLOW Normal YELLOW [facility] Comment on above: Performed By: #### U AMIC #### [facility] [address] [place] [address] Dr. Donis Mancini Glucose Ql (U) Negative Normal NEGATIVE [facility] Comment on above: Performed By: #### U AMIC #### [facility] [address] [place] [address] Dr. Donis Mancini Hemoglobin Ql (U) Negative Normal NEGATIVE [facility] Comment on above: Performed By: #### U AMIC #### [facility] [address] [place] [address] Dr. Donis Mancini Ketones Ql (U) Negative Normal NEGATIVE [facility] Comment on above: Performed By: #### U AMIC #### [facility] [address] [place] [address] Dr. Donis Mancini LEUKOCYTES Negative Normal NEGATIVE [facility] Comment on above: Performed By: #### U AMIC #### [facility] [address] [place] [address] Dr. Donis Mancini Nitrite Ql (U) Negative Normal NEGATIVE [facility] Comment on above: Performed By: #### U AMIC #### [facility] [address] [address] [address] Donis Mancini pH (U) 7.0 [pH] Normal 5-9 [facility] Comment on above: Performed By: #### U AMIC #### [facility] [address] [address] [address] Donis Mancini SPEC GRAVITY <=1.005 Abnormal 1.005-<=1.02 5 [facility] Comment on above: Performed By: #### U AMIC #### [facility] [address] [address] [address] Donis Mancini UA PROTEIN Negative Normal NEGATIVE/ TRACE [facility] Comment on above: Performed By: #### U AMIC #### [facility] [address] [address] [address] Donis Mancini UR MICRO IND NOT INDICATED Normal [facility] Comment on above: Performed By: #### U AMIC #### [facility] [address] [address] [address] Donis Mancini Urobilinogen Qn (U) 0.2 {Sarah'U}/dL Normal 0.2 - 1. 0 [facility] Comment on above: Performed By: #### U AMIC #### [facility] [address] [address] [address] Donis Mancini URIC ACID SERUMon 08-07-2022 Urate [Mass/Vol] 3.8 mg/dL Normal 2.6-6.0 [facility] Comment on above: Performed By: #### C MP, URIC, LDH ####[facility] [address] [address]Dr. Donis Mancini URINE T PROTEIN CREAT RATIOo n 08-07-2022 UR TOTAL PROTEIN <6.0 Normal <=12.0 [facility] Comment on above: Performed By: #### C T/NGNA #### [facility] [address] [address] [address] Donis Mancini URINE CREAT 13.45 mg/dL Critically low 20.00-300.00 [facility] Comment on above: Performed By: #### C T/NGNA #### [facility] [address] [place] [address] Dr. Donis Mancini US PREG BIOPHY W [...] by: COCO STERN Date: 2022-08-01 08:31 Normal [facility] CHLAMYDIA/GONOCOCCUS INESAS (SW AB/URINE/PAPon 07-31-2022 Chlamydia trachomatis, INESSA Negative Normal Negative [facility] Comment on above: Performed By: #### C T/NGNA #### [facility] [address] [place] [address] Dr. Donis Mancini Neisseria gonorrhoeae, INESSA Negative Normal Negative [facility] Comment on above: Performed By: #### C T/NGNA #### [facility] [address] [place] [address] Dr. Donis Mancini VAGINITIS/VAGINOSIS DNA PROB Domenic 07-31-2022 Simeon species Negative Normal Negative [facility] Comment on above: Performed By: #### V AGINT ####[facility] [address] [address]Dr. Donis Mancini Gardnerella vaginalis Negative Normal Negative [facility] Comment on above: Performed By: #### V AGINT ####[facility] [address] [address]DrGene Mancini Trichomonas vaginalis Negative Normal Negative [facility] Comment on above: Performed By: #### V AGINT ####[facility] [address] [place], [place] [address]IcDr. Donis Mancini GROUP B STREP CULTUREon S. agalactiae Ag Ql (Unsp spec) Culture Observations: NEGATIVE FOR GROUP B STREPTOCOCCUS. Normal [facility] Comment on above: Performed By: #### G BSCX #### [facility] [address] [place], [place] [address] Dr. Donis Mancini US PREG BIOPHY W [...] COCO STERN Date: 2022-07-25 09:41 Normal [facility] US PREG GROWTHon 07-11-2022 US PREG [...] ESTEFANY BENNETT Date: 2022-07-11 19:28 Normal [facility] Covid-19 PCR (CVDTB)on 06-26 SARS-CoV-2 (COVID-19) RNA INESSA+probe Ql (Unsp spec) Not detected Normal NOT DETECTED [facility] Comment on above: Result Comment: When [...] for this test is supported by the [place] of Health and Human Service's declaration that [...] used). Performed By: #### C T/NGNA #### [facility] [address] [place] [address] Dr. Donis Mancini GTT 3 HR PREGon 06-03-2022 Glucose [Mass/Vol] 94 mg/dL Normal 74-106 [facility] Comment on above: Performed By: #### U AMIC #### [facility] [address] [place] [address] Dr. Donis Mancini Glucose [Mass/Vol] 147 mg/dL Normal [facility] Comment on above: Performed By: #### U AMIC #### [facility] [address] [place] [address] Dr. Donis Mancini Glucose [Mass/Vol] 159 mg/dL Normal [facility] Comment on above: Performed By: #### U AMIC #### [facility] [address] [place] [address] Dr. Donis Mancini Glucose [Mass/Vol] 151 mg/dL Normal [facility] Comment on above: Performed By: #### U AMIC #### [facility] [address] [place] [address] Dr. Donis Mancini GLUCOSE - 1HRon 05-21-2022 Glucose [Mass/Vol] 141 mg/dL Critically high 74-106 [facility] Comment on above: Performed By: #### U AMIC #### [facility] [address] [place] [address] Dr. Donis Mancini HEMOGRAM AND PLATELon 2021 Hematocrit (Bld) [Volume fraction] 39.1 % Normal 36.0-48.0 [facility] Comment on above: Performed By: #### U AMIC #### [facility] [address] [place] [address] Dr. Donis Mancini Hemoglobin (Bld) [Mass/Vol] 13.1 g/dL Normal 12.0-16.0 [facility] Comment on above: Performed By: #### U AMIC #### [facility] [address] [place] [address] Dr. Donis Mancini MCH (RBC) [Entitic mass] 32.3 pg Normal 26.7-34.0 [facility] Comment on above: Performed By: #### U AMIC #### [facility] [address] [place] [address] Dr. Donis Mancini MCHC (RBC) [Mass/Vol] 33.5 g/dL Normal 29.9-35.2 [facility] Comment on above: Performed By: #### U AMIC #### [facility] [address] [place] [address] Dr. Donis Mancini MCV (RBC) [Entitic vol] 96.5 fL Normal 81.0-99.0 [facility] Comment on above: Performed By: #### U AMIC #### [facility] [address] [place] [address] Dr. Donis Mancini PLT 220 103/ul Normal 150-450 [facility] Comment on above: Performed By: #### U AMIC #### [facility] [address] [place] [address] Dr. Donis Mancini RBC 4.05 106/ul Critically low 4.20-5.[address] [facility] Comment on above: Performed By: #### U AMIC #### [facility] [id number] Donis Mancini WBC 12.8 103/ul Critically high 4.0-11.0 [facility] Comment on above: Performed By: #### U AMIC #### [facility] [address] [address] [address] Donis Mancini US PREG BIOPHYSICAL NO [...] ESTEFANY BENNETT Date: 2022-05-11 06:25 Normal [facility] CULTURE URINEon 05-10-2022 CULTURE URINE Culture Observations: MODERATE GROWTH OF MIXED GENITAL RAMBO. NO POTENTIAL PATHOGENS SEEN. Normal [facility] Comment on above: Performed By: #### U RCX #### [facility] [address] [address] [address] Donis Mancini UA RANDOM W/MICROSCOPICon BACTERIA LARGE Abnormal NONE SEEN [facility] Comment on above: Performed By: #### U AMIC ####[facility] [address] [address]Dr. Donis Mancini Bilirubin Ql (U) Negative Normal NEGATIVE [facility] Comment on above: Performed By: #### U AMIC ####[facility] [address] [address]Dr. Donis Mancini CAST NONE SEEN Normal NONE SEEN [facility] Comment on above: Performed By: #### U AMIC ####[facility] [address] [address]Dr. Donis Mancini Clarity (U) CLEAR Normal CLEAR [facility] Comment on above: Performed By: #### U AMIC ####[facility] [address] [place], [place] [address]Dr. Donis Mancini Color (U) YELLOW Normal YELLOW [facility] Comment on above: Performed By: #### U AMIC ####[facility] [address] [address]Dr. Donis Mancini Crystals LM Nom (Urine sed) NONE SEEN Normal NONE SEEN [facility] Comment on above: Performed By: #### U AMIC ####[facility] [address] [place], [place] [address]Dr. Donis Mancini Epithelial cells LM Ql (Urine sed) MODERATE Abnormal NONE SEEN /RARE [facility] Comment on above: Performed By: #### U AMIC ####[facility] [address] [place], [place] [address]Dr. Donis Mancini Glucose Ql (U) 250 mg/dl Abnormal NEGATIVE [facility] Comment on above: Performed By: #### U AMIC ####[facility] [address] [place], [place] [address]Dr. Donis Mancini Hemoglobin Ql (U) TRACE-INTACT Abnormal NEGATIVE [facility] Comment on above: Performed By: #### U AMIC ####[facility] [address] [place], [place] [address]Dr. Donis Mancini Ketones Ql (U) Negative Normal NEGATIVE [facility] Comment on above: Performed By: #### U AMIC ####[facility] [address] [place], [place] [address]Dr. Donis Mancini LEUKOCYTES LARGE Abnormal NEGATIVE [facility] Comment on above: Performed By: #### U AMIC ####[facility] [address] [place], [place] [address]Dr. Donis Mancini MUCOUS NONE SEEN Normal NONE SEEN [facility] Comment on above: Performed By: #### U AMIC ####[facility] [address] [place], [place] [address]Dr. Donis Mancini Nitrite Ql (U) Negative Normal NEGATIVE [facility] Comment on above: Performed By: #### U AMIC ####[facility] [address] [address]Dr. Donis Mancini pH (U) 6.0 [pH] Normal 5-9 [facility] Comment on above: Performed By: #### U AMIC ####[facility] [address] [address]Dr. Donis Mancini RBC 2-5 Abnormal 0-2 [facility] Comment on above: Performed By: #### U AMIC ####[facility] [address] [id number]. Donis Mancini SPEC GRAVITY <=1.005 Abnormal 1.005-<=1.02 5 [facility] Comment on above: Performed By: #### U AMIC ####[facility] [address] [place], [place] [address]Dr. Donis Mancini UA PROTEIN Negative Normal NEGATIVE/ TRACE [facility] Comment on above: Performed By: #### U AMIC ####[facility] [address] [id number]. Donis Mancini Urobilinogen Qn (U) 0.2 {Sarah'U}/dL Normal 0.2 - 1. 0 [facility] Comment on above: Performed By: #### U AMIC ####[facility] [address] [place], [place] [address]Dr. Donis Mancini WBC 10-20 Abnormal NONE SEEN [facility] Comment on above: Performed By: #### U AMIC ####[facility] [address] [phone]. Donis Mancini CULTURE URINEon 04-27-2022 CULTURE URINE Culture Observations: LIGHT GROWTH OF MIXED GENITAL RAMBO. NO POTENTIAL PATHOGENS SEEN. Normal [facility] Comment on above: Performed By: #### U RCX ####[facility] [address] [address]Dr. Donis Mancini UA (CLEAN/CATCH) AIR POLLUTION COMPLIANCE INSPECTOR/MICRO I F IND.on 04-27-2022 Bilirubin Ql (U) Negative Normal NEGATIVE [facility] Comment on above: Performed By: #### U ACSIND, UMICRO ####[facility] [address] [address]Dr. Donis Mancini Clarity (U) CLEAR Normal CLEAR [facility] Comment on above: Performed By: #### U ACSIND, UMICRO ####[facility] [address] [address]Dr. Donis Mancini Color (U) LT. YELLOW Normal YELLOW [facility] Comment on above: Performed By: #### U ACSIND, UMICRO ####[facility] [address] [address]Dr. Donis Mancini Glucose Ql (U) Negative Normal NEGATIVE [facility] Comment on above: Performed By: #### U ACSIND, UMICRO ####[facility] [address] [address]Dr. Donis Mancini Hemoglobin Ql (U) Negative Normal NEGATIVE [facility] Comment on above: Performed By: #### U ACSWENDY, ICRO ####[facility] [address] [address]Dr. Donis Mancini Ketones Ql (U) Negative Normal NEGATIVE [facility] Comment on above: Performed By: #### U ACSWENDY, ICRO ####[facility] [address] [address]Dr. Donis Mancini LEUKOCYTES SMALL Abnormal NEGATIVE [facility] Comment on above: Performed By: #### U ACSWENDY, UMICRO ####[facility] [address] [address]Dr. Donis Mancini Nitrite Ql (U) Negative Normal NEGATIVE [facility] Comment on above: Performed By: #### U ACSWENDY, ICRO ####[facility] [address] [address]Dr. Donis Mancini pH (U) 7.0 [pH] Normal 5-9 [facility] Comment on above: Performed By: #### U ACSIND, UMICRO ####[facility] [address] [place], [place] [address]Dr. Donis Mancini SPEC GRAVITY 1.015 Normal 1.005-<=1.02 5 [facility] Comment on above: Performed By: #### NEFTALY MONIQUEICRO ####[facility] [address] [place], [place] [address]Dr. Donis Mancini UA PROTEIN Negative Normal NEGATIVE/ TRACE [facility] Comment on above: Performed By: #### NEFTALY MONIQUEICRO ####[facility] [address] [place], [place] [address]Dr. Donis Mancini UR MICRO IND INDICATED Normal [facility] Comment on above: Performed By: #### U LORETTA DAMONRO ####[facility] [address] [place], [place] [address]Dr. Donis Mancini Urobilinogen Qn (U) 0.2 {Sarah'U}/dL Normal 0.2 - 1. 0 [facility] Comment on above: Performed By: #### NEFTALY MONIQUEICRO ####[facility] [address] [place], [place] [address]Dr. Donis Mancini URINE MICROSCOPIC ONLYon BACTERIA MODERATE Abnormal NONE SEEN [facility] Comment on above: Performed By: #### LORETTA MONIQUERO ####[facility] [address] [place], [place] [address]Dr. Donis Mancini Bacteria identified Cx Nom (U) INDICATED Normal [facility] Comment on above: Performed By: #### U LORETTA DAMONRO ####[facility] [address] [place], [place] [address]Dr. Donis Mancini CAST NONE SEEN Normal NONE SEEN [facility] Comment on above: Performed By: #### U NEFTALY DAMONICRO ####[facility] [address] [place], [place] [address]Dr. Donis Mancini Crystals LM Nom (Urine sed) NONE SEEN Normal NONE SEEN [facility] Comment on above: Performed By: #### U NELSON UMICRO ####[facility] [address] [place], [place] [address]Dr. Donis Mancini Epithelial cells LM Ql (Urine sed) MODERATE Abnormal NONE SEEN /RARE [facility] Comment on above: Performed By: #### U ACSWENDY, UMICRO ####[facility] [address] [place], [place] [address]Ob. Donis Mancini MUCOUS NONE SEEN Normal NONE SEEN [facility] Comment on above: Performed By: #### U ACSIND, UMICRO ####[facility] [address] [place] [phone]. Donis Mancini RBC NONE SEEN Abnormal 0-2 [facility] Comment on above: Performed By: #### U ACSWENDY, UMICRO ####[facility] [address] [place] [phone]. Laceyjavi Mancini WBC 2-5 Abnormal NONE SEEN [facility] Comment on above: Performed By: #### U ACSIND, UMICRO ####[facility] [address] [place] [phone]. Donis Mancini US KIDNEYSon 04-27-2022 US KIDNEYS [...] ANDREAS AN Date: 2022-04-27 17:48 Normal [facility] CULTURE URINEon 04-16-2022 CULTURE URINE Isolate [...] Trimethoprim/Sulfame thoxazole <=20 S F Normal [facility] Comment on above: Performed By: #### U RCX #### [facility] [address] [place] [address] Dr. Donis Mancini US PREG ANATOMY SINGLEon [...] ESTEFANY BENNETT Date: 2022-04-12 22:22 Normal [facility] UA RANDOM W/MICROSCOPICon BACTERIA SMALL Abnormal NONE SEEN [facility] Comment on above: Performed By: #### U AMIC #### [facility] [address] [place] [address] Dr. Donis Mancini Bilirubin Ql (U) Negative Normal NEGATIVE [facility] Comment on above: Performed By: #### U AMIC #### [facility] [address] [address] [address] Donis Mancini CAST NONE SEEN Normal NONE SEEN [facility] Comment on above: Performed By: #### U AMIC #### [facility] [address] [place] [address] Dr. Donis Mancini Clarity (U) CLEAR Normal CLEAR [facility] Comment on above: Performed By: #### U AMIC #### [facility] [address] [address] [address] Donis Mancini Color (U) LT. YELLOW Normal YELLOW [facility] Comment on above: Performed By: #### U AMIC #### [facility] [address] [address] [address] Donis Mancini Crystals LM Nom (Urine sed) NONE SEEN Normal NONE SEEN [facility] Comment on above: Performed By: #### U AMIC #### [facility] [address] [place] [address] Dr. Donis Mancini Epithelial cells LM Ql (Urine sed) FEW Abnormal NONE SEEN /RARE [facility] Comment on above: Performed By: #### U AMIC #### [facility] [address] [address] [address] Donis Mancini Glucose Ql (U) Negative Normal NEGATIVE [facility] Comment on above: Performed By: #### U AMIC #### [facility] [address] [place] [address] Dr. Donis Mancini Hemoglobin Ql (U) Negative Normal NEGATIVE [facility] Comment on above: Performed By: #### U AMIC #### [facility] [address] [address] [address] Donis Mancini Ketones Ql (U) Negative Normal NEGATIVE [facility] Comment on above: Performed By: #### U AMIC #### [facility] [address] [address] [address] Donis Mancini LEUKOCYTES LARGE Abnormal NEGATIVE [facility] Comment on above: Performed By: #### U AMIC #### [facility] [address] [address] [address] Donis Mancini MUCOUS NONE SEEN Normal NONE SEEN [facility] Comment on above: Performed By: #### U AMIC #### [facility] [address] [address] [address] Donis Mancini Nitrite Ql (U) Negative Normal NEGATIVE [facility] Comment on above: Performed By: #### U AMIC #### [facility] [address] [place] [address] Dr. Donis Mancini pH (U) 5.5 [pH] Normal 5-9 [facility] Comment on above: Performed By: #### U AMIC #### [facility] [address] [place] [address] Dr. Doins Mancini RBC 0-2 Normal 0-2 [facility] Comment on above: Performed By: #### U AMIC #### [facility] [address] [place] [address] Dr. Donis Mancini SPEC GRAVITY <=1.005 Abnormal 1.005-<=1.02 5 [facility] Comment on above: Performed By: #### U AMIC #### [facility] [address] [place] [address] Dr. Donis Mancini UA PROTEIN Negative Normal NEGATIVE/ TRACE [facility] Comment on above: Performed By: #### U AMIC #### [facility] [address] [place] [address] Dr. Donis Mancini Urobilinogen Qn (U) 0.2 {Sarah'U}/dL Normal 0.2 - 1. 0 [facility] Comment on above: Performed By: #### U AMIC #### [facility] [address] [address] [address] Donis Mancini WBC 5-10 Abnormal NONE SEEN [facility] Comment on above: Performed By: #### U AMIC #### [facility] [id number] Donis Mancini HEP B SURFACE ANTIGEN SCREEN on 01-23-2022 HBsAg Screen Negative Normal Negative [facility] Comment on above: Performed By: #### U AMIC #### [facility] [address] [address] [address] Donis Mancini HEPATITIS C VIRUS AB W/ REFL EX QUANTon 01-23-2022 HCV AB 0.1 s/co ratio Normal 0.0-0.[address] [facility] Comment on above: Performed By: #### H CVPCRR ####[facility] [address] [place] [id number] Mancini Interpretation: Comment Normal [facility] Comment on above: Result Comment: Nega tive Not infected with HCV, unless recent infection is suspected or other evidence exists to indicate HCV infection. Performed By: #### H CVPCRR ####[facility] [address] [place] [id number]. Donis Mancini HIV 1 AND 2 WITH REFLEXon HIV Screen 4th Generation wRfx Non-Reactive Normal Non Reactive [facility] Comment on above: Result Comment: HIV Negative HIV-1/HIV-2 antibodies and HIV-1 p24 antigen were NOT detected. There is no laboratory evidence of HIV infection. Performed By: #### H IV12 ####[facility] [id number] [id number] Mancini RPR QUANTon 01-23-2022 Rapid Plasma Reagin, Quant Non-Reactive Normal NonRea<1:1 [facility] Comment on above: Result Comment: Plea Note: This test does not meet current guidelines for screening and diagnosis of syphilis. This test is intended for following treatment response in patients being treated for syphilis infection. To screen for syphilis infection, a reflex cascade that includes both RPR and a treponema-specific assay should be utilized, such as Treponema pallidum (Syphilis) Screening Pool (908684) or Rapid Plasma Reagin (RPR) Test With Reflex to Quantitative RPR and Confirmatory Treponema pallidum Antibodies (240479). Performed By: #### R PRQ ####[facility] [address] [address]Dr. Donis Mancini RUBELLA AB IGGon 01-23-2022 Rubella Antibodies, IgG 1.60 index Normal Immune >0.99 [facility] Comment on above: Result Comment: Non- immune <0.90 Equivocal 0.90 - 0.99 Immune >0.99 Performed By: #### U AMIC #### [facility] [address] [place] [address] Dr. Donis Mancini CBC AUTO DIFFon 01-22-2022 BASO # 0.1 103/ul Normal 0.0-0.1 [facility] Comment on above: Performed By: #### U AMIC #### [facility] [address] [place] [address] Dr. Donis Mancini Basophils/100 WBC (Bld) 0.5 % Normal 0.2-2.0 [facility] Comment on above: Performed By: #### U AMIC #### [facility] [address] [place] [address] Dr. Donis Mancini EO # 0.6 103/ul Normal 0.0-0.7 [facility] Comment on above: Performed By: #### U AMIC #### [facility] [address] [place] [address] Dr. Donis Mancini Eosinophils/100 WBC (Bld) 5.1 % Normal 0.9-7.0 [facility] Comment on above: Performed By: #### U AMIC #### [facility] [address] [place] [address] Dr. Donis Mancini Erythrocyte distribution width (RBC) [Ratio] 12.0 % Normal 11.0-15.0 [facility] Comment on above: Performed By: #### U AMIC #### [facility] [address] [place] [address] Dr. Donis Mancini Hematocrit (Bld) [Volume fraction] 45.8 % Normal 36.0-48.0 [facility] Comment on above: Performed By: #### U AMIC #### [facility] [address] [address] [address] Donis Mancini Hemoglobin (Bld) [Mass/Vol] 15.3 g/dL Normal 12.0-16.0 [facility] Comment on above: Performed By: #### U AMIC #### [facility] [address] [address] [address] Donis Mancini IG # 0.03 10e3/ul Normal 0.00-0.03 [facility] Comment on above: Performed By: #### U AMIC #### [facility] [address] [place] [address] Dr. Donis Mancini IG % 0.3 % Normal 0.0-0.5 [facility] Comment on above: Performed By: #### U AMIC #### [facility] [address] [address] [address] Donis Mancini LYMPH # 1.7 103/ul Normal 1.2-3.8 [facility] Comment on above: Performed By: #### U AMIC #### [facility] [address] [place] [address] Dr. Donis Mancini Lymphocytes/100 WBC (Bld) 15.9 % Critically low 20.5-60.0 [facility] Comment on above: Performed By: #### U AMIC #### [facility] [address] [address] [address] Donis Mancini MANUAL DIFF REQ NO Normal [facility] Comment on above: Performed By: #### U AMIC #### [facility] [address] [address] [address] Donis Mancini MCH (RBC) [Entitic mass] 31.5 pg Normal 26.7-34.0 [facility] Comment on above: Performed By: #### U AMIC #### [facility] [address] [address] [address] Donis Mancini MCHC (RBC) [Mass/Vol] 33.4 g/dL Normal 29.9-35.2 [facility] Comment on above: Performed By: #### U AMIC #### [facility] [address] [place] [address] Dr. Donis Mancini MCV (RBC) [Entitic vol] 94.2 fL Normal 81.0-99.0 [facility] Comment on above: Performed By: #### U AMIC #### [facility] [address] [place] [address] Dr. Donis Mancini MONO # 0.6 103/ul Normal 0.3-0.8 [facility] Comment on above: Performed By: #### U AMIC #### [facility] [address] [place] [address] Dr. Donis Mancini Monocytes/100 WBC (Bld) 5.8 % Normal 1.7-12.0 [facility] Comment on above: Performed By: #### U AMIC #### [facility] [address] [place] [address] Dr. Donis Mancini NEUT # 7.8 103/ul Critically high 1.4-6.5 [facility] Comment on above: Performed By: #### U AMIC #### [facility] [address] [place] [address] Dr. Donis Mancini Neutrophils/100 WBC (Bld) 72.4 % Normal 43.0-75.0 [facility] Comment on above: Performed By: #### U AMIC #### [facility] [address] [place] [address] Dr. Donis Mancini Platelet mean volume (Bld) [Entitic vol] 9.9 fL Normal 9.5-13.5 [facility] Comment on above: Performed By: #### U AMIC #### [facility] [address] [place] [address] Dr. Donis Mancini PLT 281 103/ul Normal 150-450 [facility] Comment on above: Performed By: #### U AMIC #### [facility] [address] [place] [address] Dr. Donis Mancini RBC 4.86 106/ul Normal 4.20-5.40 [facility] Comment on above: Performed By: #### U AMIC #### [facility] [address] [address] [address] Donis Mancini WBC 10.8 103/ul Normal 4.0-11.0 [facility] Comment on above: Performed By: #### U AMIC #### [facility] [address] [address] [address] Donis Mancini CULTURE URINEon 01-22-2022 CULTURE URINE Culture Observations: LIGHT GROWTH OF MIXED GENITAL RAMBO. NO POTENTIAL PATHOGENS SEEN. Normal [facility] Comment on above: Performed By: #### U RCX #### [facility] [address] [address] [address] Donis Mancini GLYCOHEMOGLOBIN A1Con 2021 ADA RECOMMENDATION SEE BELOW Normal [facility] Comment on above: Result Comment: ADA RECOMMENDED LIMIT 4.0 - 6.0 ADA THERAPEUTIC TARGET < 7.0 ACTION SUGGESTED > 7.0 Performed By: #### A 1C ####[facility] [address] [address]Dr. Donis Mancini Glucose [Mass/Vol] 100 mg/dL Normal [facility] Comment on above: Performed By: #### A 1C ####[facility] [address] [id number]. Donis Mancini HbA1c (Bld) [Mass fraction] 5.1 % Normal 4.5-6.2 [facility] Comment on above: Performed By: #### A 1C ####[facility] [address] [id number]. Donis Mancini SEAN BOX TEST PT SEND OUTo n 01-22-2022 SENT TO REF LAB 01/22/20[address] [facility] Comment on above: Performed By: #### N BOX ####[facility] [address] [address]Dr. Donis Mancini TYPE AND SCREENon 01-22-2022 TYPE AND SCREEN Negative Normal [facility] Comment on above: Performed By: #### T NS #### [facility] [id number] Donis Mancini US PREG TVon 01-17-2022 [...] COCO STERN Date: 2022-01-17 09:34 Normal [facility] Provider Letteron 04-06-2021 Provider Letter April 06, 2021 Dear Vimal, We have been trying to reach you with no success. It is important that you return our call regarding your appointment upon receiving this letter. Also, at the time of your call, please provide us with your current information. Thank you for your prompt attention to this matter. Sincerely, [facility] [address] [place] [id number] [facility] Ambulatory Clinical Summaryo n 03-10-2021 Ambulatory Clinical Summary {[id number] Normal [facility] Ambulatory Clinical Summaryo n 03-05-2021 Ambulatory Clinical Summary {[id number]}CD:[id number] Normal [facility] Gynecology Phone Visit- Tele [facility] 03-05-2021 Gynecology Phone Visit- Telehealth Chief Complaint [...] only communication with the patient located [place] [address] [place] [phone], with no one else. If it is [...] Ordered: Telephone Est 5 to 10 minutes [id number] Follow-up With When Contact Information Joycelyn RENNER In [address] [place] [address]- Additional Instructions: Problem List/Past Medical History Ongoing Contraception management Visit for routine temperature regulator pyrometer exam Historical Blood transfusion Lead poisoning Procedure/Surgical [...] hepatitis B adult vaccine 2001 Recorded Normal [facility] Comment on above: Result Comment: Elec tronically Signed By: Joycelyn RENNER\.br\Date and Time Signed: 03/05/21 16:35 EDT Ambulatory Clinical Summaryo n 03-04-2021 Ambulatory Clinical Summary {[id number]}CD:[id number] Normal [facility] Coding Summary.on 12-18-2020 Coding Summary. CODING DATE: 12/18/2020 FINAL [facility] STATUS: Home (Routine DC) PAYOR: Lory [...] CphT Date Saved: 12/18/2020 12:44 pm Normal [facility] Physician Orderon 12-16-2020 Physician Order [id number] Normal [facility] Rapid COVID Antigen (MC)on 12-16-2020 Rapid COV Int NEG Ctl Pass Normal [facility] Comment on above: Performed By: #### 2 [id number] #### [facility] [address] [place] [address] Rapid COV Int POS Ctl Pass Normal [facility] Comment on above: Performed By: #### 2 [id number] #### [facility] [address] [place] [address] SARS-CoV-2 (COVID-19) RNA INESSA+probe Ql (Unsp spec) Detected Abnormal Not Detected [facility] Comment on above: Result Comment: Left a message for callback. 12/16/2020 11:42:47 EDT Results faxed to infection control. The [employer]? System for Rapid Detection of SARS-CoV-2 [...] or revoked sooner. Performed By: #### 2 [id number] #### [facility] [address] [place] [address] Employed in Healthcare Unknown Normal [facility] Comment on above: Performed By: #### 2 [id number] #### [facility] [address] [place] [address] First Test Unknown [facility] Comment on above: Performed By: #### 2 [id number] #### [facility] [address] [place] [address] Hospitalized? NO Normal [facility] Comment on above: Performed By: #### 2 [id number] #### [facility] [address] [place] [address] ICU NO Normal [facility] Comment on above: Performed By: #### 2 [id number] #### [facility] [address] [place] [address] ? Unknown Normal [facility] Comment on above: Performed By: #### 2 [id number] #### [facility] [address] [place] [address] Resides in a Congregate Care Setting Unknown Normal [facility] Comment on above: Performed By: #### 2 [id number] #### [facility] [address] [place] [address] Symptomatic as defined by CDC YES Normal [facility] Comment on above: Performed By: #### 2 [id number] #### [facility] [address] [place] [address] Ambulatory Clinical Summaryo n 11-25-2020 Ambulatory Clinical Summary {[id number] Normal [facility] Vital Signs Date Time Vital Sign Value Performing Clinician Facility 05-14-2025 14:59-0400 Body mass index (BMI) [Ratio] 31.35 kg/m2 Jose Michael DO Work Phone: [facility] 05-14-2025 14:59-0400 Body weight 80.29 kg Jose Michael DO Work Phone: [facility] 05-14-2025 14:59-0400 Diastolic blood pressure 90 mm[Hg] Jose Michael DO Work Phone: [facility] 05-14-2025 14:59-0400 Systolic blood pressure 140 mm[Hg] Jose Michael DO Work Phone: [facility] 05-13-2025 16:11-0400 Body weight 79.83 kg Marjorie Rico RN Work Phone: [facility] 04-30-2025 11:52-0400 Body mass index (BMI) [Ratio] 31 kg/m2 Rossana BISWAS Work Phone: [facility] 04-30-2025 11:52-0400 Body weight 79.38 kg Rossana BISWAS Work Phone: [facility] 04-30-2025 11:52-0400 Diastolic blood pressure 94 mm[Hg] Rossana Scottey PA Work Phone: [facility] 04-30-2025 11:52-0400 Systolic blood pressure 140 mm[Hg] Rossana Bear Creek PA Work Phone: [facility] 04-11-2025 15:38-0400 Body mass index (BMI) [Ratio] 30.2 kg/m2 Rossana Rachel PA Work Phone: [facility] 04-11-2025 15:38-0400 Body weight 77.34 kg Rossana Bear [place] PA Work Phone: [facility] 04-11-2025 15:38-0400 Diastolic blood pressure 100 mm[Hg] Rossana Bear Creek PA Work Phone: [facility] 04-11-2025 15:38-0400 Systolic blood pressure 142 mm[Hg] Rossana Bear Creek PA Work Phone: [facility] 03-14-2025 11:36-0400 Body mass index (BMI) [Ratio] 29.23 kg/m2 Jose Michael DO Work Phone: [facility] 03-14-2025 11:36-0400 Body weight 74.84 kg Jose Michael DO Work Phone: [facility] 03-14-2025 11:36-0400 Diastolic blood pressure 76 mm[Hg] Jose Michael DO Work Phone: [facility] 03-14-2025 11:36-0400 Systolic blood pressure 112 mm[Hg] Jose Michael DO Work Phone: [facility] 02-20-2025 16:08-0400 Body mass index (BMI) [Ratio] 28.83 kg/m2 Rossana Bear Creek PA Work Phone: [facility] 02-20-2025 16:08-0400 Body weight 73.82 kg Rossana Rachel PA Work Phone: [facility] 02-20-2025 16:08-0400 Diastolic blood pressure 82 mm[Hg] Rossana Rachel PA Work Phone: [facility] 02-20-2025 16:08-0400 Systolic blood pressure 110 mm[Hg] Rossana BISWAS Work Phone: [facility] 01-14-2025 15:42-0400 Body mass index (BMI) [Ratio] 27.3 kg/m2 Jose Michael DO Work Phone: [facility] 01-14-2025 15:42-0400 Body weight 69.91 kg Jose Michael DO Work Phone: [facility] 01-14-2025 15:42-0400 Diastolic blood pressure 70 mm[Hg] Jose Michael DO Work Phone: [facility] 01-14-2025 15:42-0400 Systolic blood pressure 120 mm[Hg] Jose Michael DO Work Phone: [facility] 08-20-2024 10:55-0500 Body mass index (BMI) [Ratio] 25.93 kg/m2 Rossana BISWAS Work Phone: [facility] 08-20-2024 10:55-0500 Body weight 66.41 kg Rossana BISWAS Work Phone: [facility] 08-20-2024 10:55-0500 Diastolic blood pressure 70 mm[Hg] Rossana BISWAS Work Phone: [facility] 08-20-2024 10:55-0500 Systolic blood pressure 120 mm[Hg] Rossana BISWAS Work Phone: [facility] 08-06-2024 09:38-0500 Body mass index (BMI) [Ratio] 25.47 kg/m2 Jose Michael DO Work Phone: [facility] 08-06-2024 09:38-0500 Body weight 65.23 kg Jose Michael DO Work Phone: [facility] 08-06-2024 09:38-0500 Diastolic blood pressure 70 mm[Hg] Jose Michael DO Work Phone: [facility] 08-06-2024 09:38-0500 Systolic blood pressure 120 mm[Hg] Jose Rodriguez DO Work Phone: [facility] 06-29-2024 09:12-0400 Body mass index (BMI) [Ratio] 24.58 kg/m2 [facility] Nurse [facility] 06-29-2024 09:12-0400 Body weight 62.94 kg [facility] Nurse [facility] 06-29-2024 09:12-0400 Diastolic blood pressure 72 mm[Hg] [facility] Nurse [facility] 06-29-2024 09:12-0400 Systolic blood pressure 122 mm[Hg] [facility] Nurse [facility] 12-26-2022 13:45-0400 Body height 160.02 cm Jennifer Huston Other [facility] Other 12-26-2022 13:45-0400 Body mass index (BMI) [Ratio] 27.45 kg/m2 Jennifer Betzaida Other [facility] Other 12-26-2022 13:45-0400 Body temperature 97 [degF] Jennifer Betzaida Other [facility] Other 12-26-2022 13:45-0400 Body weight 70.31 kg Jennifer Betzaida Other [facility] Other 12-26-2022 13:45-0400 Diastolic blood pressure 89 mm[Hg] Jennifer Betzaida Other [facility] Other 12-26-2022 13:45-0400 Respiratory rate 18 /min Jennifer Betzaida Other [facility] Other 12-26-2022 13:45-0400 SaO2% (BldA) [Mass fraction] 100 % Jennifer Betzaida Other [facility] Other 12-26-2022 13:45-0400 Systolic blood pressure 135 mm[Hg] Jennifer Huston Other [facility] Other Encounters Encounter Date Encounter Type Care Provider Facility Start: 05-14-2025 End: 05-14-2025 ambulatory JOSE MICHAEL Not Available Start: 05-14-2025 End: 05-14-2025 flow sheet Jose Michael DO Work Phone: [facility] Comment on above: Third trimester preg alysa ([facility] 30 weeks gestation of ([facility]); induced hypertension, antepartum ([facility]) Start: 05-14-2025 End: 05-14-2025 Bamboo flowsheet Jose Michael DO Work Phone: [facility] Start: 05-14-2025 End: 05-14-2025 Bamboo flowsheet Jose Michael DO Work Phone: [facility] Start: 05-13-2025 End: 05-13-2025 ambulatory Marjorie Rico RN Work Phone: [facility] Comment on above: Gestational diabetes mellitus (GDM) in third trimester, gestational diabetes method of control unspecified Start: 05-11-2025 End: 05-11-2025 Clinisync Result Encounter Rossana BISWAS Work Phone: [facility] Unsolicited Start: 05-11-2025 End: 05-11-2025 Clinisync Result Encounter Rossana BISWAS Work Phone: [facility] Unsolicited Start: 05-10-2025 End: 05-10-2025 Chart abstracting Scanning Provider External [facility] Start: 05-06-2025 End: 05-06-2025 Clinisync Result Encounter [...] Bamboo flowsheet Rossana BISWAS Work Phone: [facility] Start: 04-30-2025 End: 04-30-2025 Bamboo flowsheet Rossana Rachel PA Work Phone: [facility] Start: 04-30-2025 End: 04-30-2025 ambulatory ROSSANA RAMOS Not Available Start: 04-30-2025 End: 04-30-2025 Patient encounter status Rossana BISWAS Work Phone: [facility] Work Phone: Start: 04-30-2025 End: 04-30-2025 flow sheet Rossana Rachel PA Work Phone: [facility] Comment on above: BP check; -induced hypertension in third trimester ([facility]); Gestational diabetes mellitus (GDM) in third trimester, gestational diabetes method of control unspecified ([facility]) Start: 04-27-2025 End: 04-27-2025 Clinisync Result Encounter Rossana BISWAS Work Phone: [facility] Unsolicited Start: 04-27-2025 End: 04-27-2025 Clinisync Result Encounter Rossana BISWAS Work Phone: [facility] Unsolicited Start: 04-25-2025 End: 04-25-2025 flow sheet Rossana BISWAS Work Phone: [facility] Comment on above: Second trimester pre gnancy ([facility]); 27 weeks gestation of ([facility]); induced hypertension, antepartum ([facility]) Start: 04-25-2025 End: 04-25-2025 ambulatory ROSSANA RAMOS Not Available Start: 04-25-2025 End: 04-25-2025 Bamboo flowsheet Rossana IBSWAS Work Phone: [facility] Start: 04-25-2025 End: 04-25-2025 Bamboo flowsheet Rossana BISWAS Work Phone: [facility] Start: 04-11-2025 End: 04-11-2025 ambulatory ROSSANA RAMOS Not Available Start: 04-11-2025 End: 04-11-2025 flow sheet Rossana BISWAS Work Phone: [facility] Comment on above: Second trimester pre gnancy ([facility]); 25 weeks gestation of ([facility]); Diabetes mellitus screening; Elevated BP without diagnosis [...] Comment on above: Second trimester pre gnancy ([facility]); 21 weeks gestation of ([facility]) Start: 03-08-2025 End: 03-08-2025 Clinisync Result Encounter Jose Michael DO Work Phone: [facility] Unsolicited Start: 03-08-2025 End: 03-08-2025 Clinisync Result Encounter Jose Michael DO Work Phone: [facility] Unsolicited Start: 02-20-2025 End: 02-20-2025 Patient encounter procedure Rossana BISWAS Work Phone: [facility] Start: 02-20-2025 End: 02-20-2025 [...] Start: 08-10-2024 End: 08-10-2024 ambulatory PHYSICIAN [facility] Work Phone: Start: 08-10-2024 End: 08-10-2024 Departed Referred PHYSICIAN NO [facility] Start: [...] 12-26-2022 End: 12-26-2022 ambulatory Jennifer Huston Other [facility] [employer] Other Start: 12-26-2022 End: 12-26-2022 Patient encounter procedure COMMUNITY SERVICE REPRESENTATIVE-C Jennifer Huston Work Phone: [facility] Work [...] Start: 12-26-2022 Plain X-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 hand COMMUNITY SERVICE REPRESENTATIVE-C Jennifer Huston Work Phone: Start: 11-02-2022 [...] malign ant neoplasm of cervix Pap Smear [facility] Start: 06-04-2025 End: 06-04-2025 Patient encounter procedure 06/04/2025 1:00 PM EDT Appointment [facility] - Ultrasound [address] [place] [place] [id number] Jose Rodriguez R, DO [address] [place], [place] [id number] [facility] Start: 05-27-2025 Influenza vaccination N [facility] Start: 05-22-2025 End: 05-22-2025 Patient encounter procedure 05/22/2025 2:40 PM EDT Routine [facility] [address] [id number] Jose Rodriguez, DO [address] [place] [address] [facility] Start: 05-14-2025 End: 05-14-2025 Patient encounter procedure 05/14/2025 2:40 PM EDT Routine [facility] [address] [place] [id number] Jose Rodriguez, [address] [place] [address] [facility] Start: 05-14-2025 End: 05-14-2026 Alanine aminotransferase [Enzymatic activity/volume] in Serum or Plasma ALT Lab Routine induced hypertension, antepartum ([facility]) Expected: 05/14/2025 (Approximate), Expires: 05/14/2026 [facility] Comment on above: Expected: 05/14/2025 (Approximate), Expires: 05/14/2026 Start: 05-14-2025 End: 05-14-2026 Aspartate aminotransferase [Enzymatic activity/volume] in Serum or Plasma AST Lab Routine induced hypertension, antepartum ([facility]) Expected: 05/14/2025 (Approximate), Expires: 05/14/2026 [facility] Comment on above: Expected: 05/14/2025 (Approximate), Expires: 05/14/2026 Start: 05-14-2025 End: 05-14-2026 CBC W Auto Differential panel - Blood CBC and differential Lab Routine induced hypertension, antepartum ([facility]) Expected: 05/14/2025 (Approximate), Expires: 05/14/2026 [facility] Comment on above: Expected: 05/14/2025 (Approximate), Expires: 05/14/2026 Start: 05-14-2025 End: 05-14-2026 Creatinine [Mass/volume] in Serum or Plasma Creatinine Lab Routine induced hypertension, antepartum ([facility]) Expected: 05/14/2025 (Approximate), Expires: 05/14/2026 [facility] Work Phone: Comment on above: Expected: 05/14/2025 (Approximate), Expires: 05/14/2026 Start: 05-14-2025 End: 05-14-2026 Lactate dehydrogenase [Enzymatic activity/volume] in Serum or Plasma by Lactate to pyruvate reaction Lactate dehydrogenase Lab Routine induced hypertension, antepartum (HHS-HCC) Expected: 05/14/2025, Expires: 05/14/2026 [facility] Comment on above: Expected: 05/14/2025 , Expires: 05/14/2026 Start: 05-14-2025 End: 05-14-2026 Protein, urine, 24 hour Protein, urine, 24 hour Lab Routine induced hypertension, antepartum (HHS-HCC) Expected: 05/14/2025 (Approximate), Expires: 05/14/2026 [facility] Comment on above: Expected: 05/14/2025 (Approximate), Expires: 05/14/2026 Start: 05-14-2025 End: 05-14-2026 Pt and ptt Pt and ptt Lab Routine induced hypertension, antepartum (HHS-HCC) Expected: 05/14/2025, Expires: 05/14/2026 [facility] Comment on above: Expected: 05/14/2025 , Expires: 05/14/2026 Start: 05-14-2025 End: 05-14-2026 Urate [Mass/volume] in Serum or Plasma Uric acid Lab Routine induced hypertension, antepartum (HHS-HCC) Expected: 05/14/2025 (Approximate), Expires: 05/14/2026 [facility] Comment on above: Expected: 05/14/2025 (Approximate), Expires: 05/14/2026 Start: 05-14-2025 End: 05-14-2026 Urea nitrogen [Mass/volume] in Serum or Plasma BUN Lab Routine induced hypertension, antepartum (HHS-HCC) Expected: 05/14/2025, Expires: 05/14/2026 [facility] Comment on above: Expected: 05/14/2025 , Expires: 05/14/2026 Start: 05-13-2025 End: 05-13-2025 ambulatory 05/13/2025 1:30 PM EDT Support Visit Maternal- Medicine at [facility] [address] [place] [address] Marjorie Rico RN [address], [address] [place] [id number] Xenia Rayo, ALEC [address], [address] [place] [address] [facility] Start: 04-30-2025 End: 10-31-2025 US biophysical profile [...] control unspecified (HHS-HCC) Expected: 04/30/2025, Expires: 08/30/2025 [facility] Comment on above: Expected: 04/30/2025 , Expires: 08/30/2025 Start: 04-30-2025 End: 04-30-2025 Patient encounter procedure 04/30/2025 10:50 AM EDT Routine ARJUN PANG [address] [place] [phone] Rossana Ramos PA [address] [place] [address] ARJUN PANG Start: 04-25-2025 End: 04-25-2025 Patient encounter procedure [facility] Comment on above: Arrived Start: 04-25-2025 [...] antepartum (HHS-HCC) Expected: 04/25/2025 (Approximate), Expires: 04/25/2026 [facility] Comment on above: Expected: 04/25/2025 (Approximate), Expires: 04/25/2026 Start: 04-25-2025 End: 04-25-2026 Creatinine [Mass/volume] in Serum or Plasma Creatinine Lab Routine induced hypertension, antepartum (HHS-HCC) Expected: 04/25/2025 (Approximate), Expires: 04/25/2026 [facility] Work Phone: Comment on above: Expected: 04/25/2025 (Approximate), Expires: 04/25/2026 Start: 04-25-2025 End: 04-25-2026 Lactate dehydrogenase [Enzymatic activity/volume] in Serum or Plasma by Lactate to pyruvate reaction Lactate dehydrogenase Lab Routine induced hypertension, antepartum (HHS-HCC) Expected: 04/25/2025, Expires: 04/25/2026 [facility] Comment on above: Expected: 04/25/2025 , Expires: 04/25/2026 Start: 04-25-2025 End: 04-25-2026 Protein, urine, 24 hour Protein, urine, 24 hour Lab Routine induced hypertension, antepartum (HHS-HCC) Expected: 04/25/2025 (Approximate), Expires: 04/25/2026 [facility] Comment on above: Expected: 04/25/2025 (Approximate), Expires: 04/25/2026 Start: 04-25-2025 End: 04-25-2026 Pt and ptt Pt and ptt Lab Routine induced hypertension, antepartum (HHS-HCC) Expected: 04/25/2025, Expires: 04/25/2026 [facility] Comment on above: Expected: 04/25/2025 , Expires: 04/25/2026 Start: 04-25-2025 End: 04-25-2026 Urate [Mass/volume] in Serum or Plasma Uric acid Lab Routine induced hypertension, antepartum (HHS-HCC) Expected: 04/25/2025 (Approximate), Expires: 04/25/2026 [facility] Comment on above: Expected: 04/25/2025 (Approximate), Expires: 04/25/2026 Start: 04-25-2025 End: 04-25-2026 Urea nitrogen [Mass/volume] in Serum or Plasma BUN Lab Routine induced hypertension, antepartum ([facility]) Expected: 04/25/2025, Expires: 04/25/2026 [facility] Comment on above: Expected: 04/25/2025 , Expires: 04/25/2026 Start: 04-11-2025 End: 04-11-2025 Patient encounter procedure 04/11/2025 3:30 PM EDT Routine [facility] [address] [address] Rossana Ramos PA [address] [place] [address] [facility] Start: 04-11-2025 End: 04-11-2026 CBC panel - Blood by Automated count CBC Lab Routine Diabetes mellitus screening Expected: 04/11/2025 (Approximate), Expires: 04/11/2026 [facility] Work Phone: Comment on above: Expected: 04/11/2025 (Approximate), Expires: 04/11/2026 Start: 04-11-2025 End: 04-11-2026 Measurement of glucose 1 hour after glucose challenge for glucose tolerance test Glucose tolerance, 1 hour Lab Routine Diabetes mellitus screening Expected: 04/11/2025 (Approximate), Expires: 04/11/2026 [facility] Comment on above: Expected: 04/11/2025 (Approximate), Expires: 04/11/2026 Start: 03-14-2025 End: 03-14-2025 Patient encounter procedure 03/14/2025 10:50 AM EDT Routine [facility] [address] [address] Jose Rodriguez DO [address] [place], [place] [id number] [facility] Start: 02-20-2025 End: 02-20-2025 [...] Initial [facility] [address] [place] [phone] [facility] Start: 12-14-2024 End: 12-14-2024 Professional / ancillary services management 12/14/2024 8:30 AM EDT Ancillary Procedure [facility] [address] [place] [phone] [facility] Start: 08-20-2024 End: 08-20-2024 Patient encounter procedure 08/20/2024 10:20 AM EST Office Visit [facility] [address] [place] [address] Rossana Ramos PA [address] [place] [address] [facility] Start: 08-06-2024 End: 08-06-2024 Patient encounter procedure 08/06/2024 9:10 AM EST Routine [facility] [address] [place] [address] Jose Rodriguez, DO [address] [place] [place] [address] [facility] Start: 06-29-2024 End: 06-29-2025 ABO/Rh ABO/Rh Lab Routine Missed menses , unspecified gestational age Expected: 06/29/2024 (Approximate), Expires: 06/29/2025 [facility] Comment on above: Expected: 06/29/2024 (Approximate), Expires: 06/29/2025 Start: 06-29-2024 End: 06-29-2025 Blood type and Indirect antibody screen panel - Blood Type and screen Lab Routine Missed menses , unspecified gestational age Expected: 06/29/2024 (Approximate), Expires: 06/29/2025 [facility] Work Phone: Comment on above: Expected: 06/29/2024 (Approximate), Expires: 06/29/2025 Start: 06-29-2024 End: 06-29-2025 Drugs of abuse panel - Urine by Screen method Rapid drug screen, urine Lab Routine , unspecified gestational age Encounter for supervision of normal first in first trimester Expected: 06/29/2024 (Approximate), Expires: 06/29/2025 [facility] Comment on above: Expected: 06/29/2024 (Approximate), Expires: 06/29/2025 Start: 06-29-2024 End: 06-29-2025 US Pelvis transvaginal US OB transvaginal Imaging Routine Missed menses Expected: 06/29/2024 (Approximate), Expires: 06/29/2025 [facility] Comment on above: Expected: 06/29/2024 (Approximate), Expires: 06/29/2025 Start: 05-27-2024 Influenza vaccination Influenza Vacc ine (#1) [facility] Start: 05-01-2024 DTaP,Tdap and Td Vac cines (7 - Td or Tdap) DTaP,Tdap and Td Vaccines (7 - Td or Tdap) [facility] Start: 2020 DTaP,Tdap and Td Vac cines (1 - Tdap) DTaP,Tdap and Td Vaccines (1 - Tdap) [facility] Start: 2019 Adult BMI Screening Adult BMI Screen ing [facility] Start: 2013 Depression Screening Depression Scre ening [facility] Start: 2013 Tobacco Screening Tobacco Screening [facility] Bacteria identified in Urine by Culture Urine culture Microbiology Routine Missed menses Ordered: 06/29/2024 [facility] Comment on above: Ordered: 06/29/2024 Bacteria identified in Urine by Culture Urine culture Microbiology Routine Urinary frequency Ordered: 02/20/2025 [facility] Comment on above: Ordered: 02/20/2025 CBC W Auto Different ial panel - Blood CBC and differential Lab Routine Missed menses , unspecified gestational age Ordered: 06/29/2024 [facility] Comment on above: Ordered: 06/29/2024 CHLAMYDIA TRACHOMATI S (GENITO/STI) CHLAMYDIA TRACHOMATIS (GENITO/STI) Lab Routine STD exposure Ordered: 02/20/2025 [facility] Comment on above: Ordered: 02/20/2025 Cytology Cervical or vaginal smear or scraping study Pap Smear Pathology and Cytology Routine Well woman exam with routine gynecological exam Ordered: 02/20/2025 [facility] Comment on above: Ordered: 02/20/2025 Hemoglobin A1c/Hemoglobin.total in Blood Hemoglobin A1c Lab Routine Missed menses , unspecified gestational age Ordered: 06/29/2024 [facility] Comment on above: Ordered: 06/29/2024 Hepatitis B virus beltran rface Ag [Presence] in Serum or Plasma by Immunoassay Hepatitis B surface antigen Lab Routine Missed menses , unspecified gestational age Ordered: 06/29/2024 [facility] Comment on above: Ordered: 06/29/2024 Hepatitis C virus Ab [Presence] in Serum or Plasma by Immunoassay Hepatitis C antibody Lab Routine Missed menses , unspecified gestational age Ordered: 06/29/2024 [facility] Comment on above: Ordered: 06/29/2024 HIV-1/HIV-2 antigen/antibody combination immunoassay HIV-1 and HIV-2 antibodies Lab Routine Missed menses , unspecified gestational age Ordered: 06/29/2024 [facility] Comment on above: Ordered: 06/29/2024 Neisseria gonorrhoea e DNA [Presence] in Unspecified specimen by INESSA with probe detection Neisseria gonorrhea DNA probe, direct Lab Routine STD exposure Ordered: 02/20/2025 [facility] Comment on above: Ordered: 02/20/2025 Reagin Ab [Presence] in Serum by RPR RPR Lab Routine Missed menses , unspecified gestational age Ordered: 06/29/2024 [facility] Comment on above: Ordered: 06/29/2024 Rubella antibody, IgG Rubella an tibody, IgG Lab Routine Missed menses , unspecified gestational age Ordered: 06/29/2024 [facility] Comment on above: Ordered: 06/29/2024 SURESWAB(R) ADVANCED VAGINITIS PLUS, TMA SURESWAB(R) ADVANCED VAGINITIS PLUS, TMA Pathology and Cytology Routine STD exposure Ordered: 02/20/2025 [facility] Work Phone: Comment on above: Ordered: 02/20/2025 Immunizations Immunization Date Immunization Notes Care Provider Ryne abrams 08-28-2002 influenza virus vacc ine, unspecified formulation Noms Nurse [facility] Healthcare Payers Date Payer Category Payer Medicaid HMO [place] [employer] [id number] 2024 Blue Cross [employer] [place] Managed Care - O [id number] 2023 Medicaid [employer] [employer] [id number] 2023-Present [address] [address] [id number] 2023 Medicaid (Managed Care) [facility] MEDICAID [id number] 2021 Blue Cross Blue Shield 1.2.8 [id number] 2021 Unknown BCBS BCBS [id number] 2021-Present [phone] [address] [place] [address] [id number]. [id number] 2001 Unknown [id number] 2.16.840.1.181757.3.579.2. 593 2001 Unknown [id number] 2.16.840.1.405357.3.579.2. 593 2001 Unknown [id number] 2.16.840.1.745907.3.579.2. 593 2001 Unknown [id number] 2.16.840.1.877631.3.579.2. 593 2001 Unknown [id number] 2.16.840.1.997863.3.579.2. 593 2001 Unknown [id number] 2.16.840.1.857342.3.579.2. 593 2001 Unknown [id number] 2.16.840.1.415428.3.579.2. 593 2001 Unknown [id number] 2.16.840.1.841634.3.579.2. 593 2001 Unknown [id number] 2.16.840.1.029405.3.579.2. 593 2001 Unknown [id number] 2.16.840.1.459194.3.579.2. 593 2001 Unknown [id number] 2.16.840.1.472468.3.579.2. 593 2001 Unknown [id number] 2.16.840.1.039317.3.579.2. 593 2001 Unknown [id number] 2.16.840.1.462828.3.579.2. 593 2001 Unknown [id number] 2.16.840.1.799220.3.579.2. 593 2001 Unknown [id number] 2.16.840.1.376954.3.579.2. 593 2001 Unknown [id number] 2.16.840.1.816371.3.579.2. 593 2001 Unknown [id number] 2.16.840.1.876824.3.579.2. 593 2001 Unknown [id number] 2.16.840.1.951275.3.579.2. 593 2001 Unknown [id number] 2.16.840.1.045393.3.579.2. 593 2001 Unknown [id number] 2.16.840.1.997484.3.579.2. 593 2001 Unknown [id number] 2.16.840.1.815210.3.579.2. 593 2001 Unknown [id number] 2.16.840.1.095008.3.579.2. 1286 2001 Unknown [id number] 2.16.840.1.560328.3.579.2. 9 2001 Unknown [id number] 2.16.840.1.534391.3.579.2. 1258 2001 Unknown [id number] 2.16.840.1.279910.3.579.2. 9 2001 Unknown [id number] 2.16.840.1.103838.3.579.2. 1258 2001 Unknown [id number] 2.16.840.1.581751.3.579.2. 1258 2001 Unknown [id number] 2.16.840.1.073752.3.579.2. 1258 2001 Unknown [id number] 2.16.840.1.862192.3.579.2. 1258 2001 Unknown [id number] 2.16.840.1.125323.3.579.2. 1258 2001 Unknown [id number] 2.16.840.1.027621.3.579.2. 1258 2001 Unknown [id number] 2.16.840.1.422064.3.579.2. 1258 2001 Unknown [id number] 2.16.840.1.906683.3.579.2. 1258 2001 Unknown [id number] 2.16.840.1.037660.3.579.2. 1259 1959 Self-pay 1959 Unknown [id number] 1959 Unknown [id number] Unknown [id number] 2.16.840.1.929612.3.579.2. 593 Unknown [id number] 2.16840.1.312775.3.579.2. 531 Social History Date Type Detail Facility Start: 10-13-2023 End: 06-29-2024 Sex Assigned At [facility] Other Start: 2000 Sex Assigned At Female F [facility] Start: 10-13-2023 End: 05-10-2025 Tobacco smoking status NHIS Never smoked tobacco [facility] Start: 06-29-2024 End: 04-30-2025 Alcoholic beverage intake Current drinker of alcohol (finding) [facility] Start: 10-13-2023 End: 06-29-2024 History of Social function [facility] Start: 05-24-2024 [facility] Start: 2001 Sex assigned at Not on file N [facility] Tobacco smoking stat us PAIS Unknown if ever smoked [facility] Work Phone: Start: 04-29-2015 End: 08-11-2024 Sex Female (finding) [facility] Start: 05-10-2025 Alcoholic beverage intake Ex-drinker (finding) [facility] Unknown [facility] Medical Equipment Procedure Code Equipment Code Equipment Origin al Text Equipment Identifier Dates 1 strip by In Vi tro route Daily Use in the morning prior to breakfast, 1 hour after each meal for a total of 4times daily. [id number] Start: 05-08-2025 End: 06-07-2025 1 each by In Vit ro route Daily Use to check FSBS four times daily [id number] Start: 05-08-2025 End: 06-07-2025 Clinical Notes 12-26-2022 to 05-14-2025 Meghana Felder LPN - 05/14/2025 2:40 PM EDTGroup [...] Medical History: Diagnosis Date Anemia Gestational diabetes ([facility]) History of blood transfusion Lead poisoning Miscarriage ([facility]) Nonsmoker Post depression HISTORY PAST MEDICAL HISTORY SOCIAL HISTORY Past Medical History: Diagnosis Date Anemia Gestational diabetes ([facility]) History of blood transfusion Lead poisoning Miscarriage ([facility]) Nonsmoker Post depression /anxiety Social History [...] nursing note reviewed. Exam conducted with a institutional research coordinator present. Vitals: Estimated body mass index is 31.35 kg/m as calculated from the following: Height as of 01/06/23: 5' 3 . Weight as of this encounter: 177 lb. BP: 140/90 Patient's last menstrual period was 10/15/2024 (exact date). ASSESSMENT & PLAN ICD-10-CM 1. Third trimester ([facility]) Z34.93 POCT urinalysis dipstick manually resulted 2. 30 weeks gestation of ([facility]) Z3A.30 POCT urinalysis dipstick manually resulted 3. induced hypertension, antepartum ([facility]) O13.9 Creatinine Protein, urine, 24 hour Pt [...] Jose Rodriguez DO documented in this encounter [facility] 05-13-2025 Group counseling note Patient: Vimal Funes [...] Face to face time was 110 minutes. [employer] Work Phone: 05-13-2025 Miscellaneous Notes Patient: Vimal [...] was 110 minutes. documented in this encounter [facility] 05-07-2025 Telephone encounter Note Called pt to let her know that she did not pass her 3 hour glucose test and that I would be sending in supplies and referring her to diabetic education. [facility] 05-07-2025 Miscellaneous Notes Called pt to let her know that she did not pass her 3 hour glucose test and that I would be sending in supplies and referring her to diabetic education. documented in this encounter [facility] 04-30-2025 History of Presen t illness [...] resulted 2. -induced hypertension in third trimester ([facility]) O13.3 US biophysical profile w non stress test US OB follow up transabdominal approach labetalol (Normodyne) 300 MG tablet 3. Gestational diabetes mellitus (GDM) in third trimester, gestational diabetes method of control unspecified ([facility]) O24.419 US biophysical profile w non stress [...] for routine OB appointment. Documented by TRUE Argueat on behalf of: TRUE Argueta documented in this encounter [facility] 04-25-2025 History of Presen t illness [...] Medical History: Diagnosis Date Anemia Gestational diabetes ([facility]) History of blood transfusion Lead poisoning Miscarriage ([facility]) Nonsmoker Post depression HISTORY PAST MEDICAL [...] ASSESSMENT & PLAN ICD-10-CM 1. Second trimester ([facility]) Z34.92 2. 27 weeks gestation of ([facility]) Z3A.27 Patient presents for BP check. BP elevated today despite taking 100mg bid labetolol daily. We will increase to 200mg bid daily. Patient given labs and instructed to follow up with OB should she develop headache or vision changes Pt will follow up with DR Rodriguez next week Documented by TRUE Argueta on behalf of: TRUE Argueta documented in this encounter [facility] 04-11-2025 History of Presen t illness [...] ASSESSMENT & PLAN ICD-10-CM 1. Second trimester ([facility]) Z34.92 POCT urinalysis dipstick manually resulted 2. 25 weeks gestation of ([facility]) Z3A.25 3. Diabetes mellitus screening Z13.1 CBC [...] of: TRUE Argueta documented in this encounter [facility] 03-14-2025 History of Presen t illness [...] Medical History: Diagnosis Date Anemia Gestational diabetes ([facility]) History of blood transfusion Lead poisoning Miscarriage ([facility]) Nonsmoker Post depression HISTORY PAST MEDICAL HISTORY SOCIAL HISTORY Past Medical History: Diagnosis Date Anemia Gestational diabetes ([facility]) History of blood transfusion Lead poisoning Miscarriage ([facility]) Nonsmoker Post depression /anxiety Social History Tobacco [...] nursing note reviewed. Exam conducted with a institutional research coordinator present. Vitals: Estimated body mass index is 29.23 kg/m as calculated from the following: Height as of 01/06/23: 5' 3 . Weight as of this encounter: 165 lb. BP: 112/76 Patient's last menstrual period was 10/15/2024 (exact date). ASSESSMENT & PLAN ICD-10-CM 1. Second trimester ([facility]) Z34.92 POCT urinalysis dipstick manually resulted 2. 21 weeks gestation of ([facility]) Z3A.21 Patient presents today for a routine obstetrics appointment. Patient is currently 21w3d with a Estimated Date of Delivery: 07/22/25. Patient has no complaints at this time and will return to clinic in 4 weeks. Documented by Diamond Borja LPN on behalf of: Jose Rodriguez DO documented in this encounter [facility] 02-20-2025 History of Presen t illness [...] nursing note reviewed. Exam conducted with a institutional research coordinator present. Vitals: Estimated body mass index [...] of: TRUE Argueta documented in this encounter [facility] 01-14-2025 History of Presen t illness [...] nursing note reviewed. Exam conducted with a institutional research coordinator present. Vitals: Estimated body mass index [...] or undercooked meat, and stay away from [facility]. Patient has been consulted regarding any [...] Jose Rodriguez DO documented in this encounter [facility] 08-20-2024 History of Presen t illness [...] having a D&C Hysteroscopy performed at [facility] with Dr. Rodriguez. Pathology results was reviewed with the patient in great detail and all restrictions have been lifted. Follow Up: Patient is to return to the office for annual exam unless needed otherwise. Documented by TRUE Argueta on behalf of: TRUE Argueta documented in this encounter [facility] 08-06-2024 History of Presen t illness [...] transfusion Lead poisoning Miscarriage Nonsmoker Post depression ([facility]) /anxiety Social History Tobacco Use Smoking status: [...] nursing note reviewed. Exam conducted with a institutional research coordinator present. Vitals: Estimated body mass index [...] vaginal bleeding. Patient to discuss date with Cad Draftsman prior to leaving. Patient is able to obtain work note for the week and if longer is needed she will reach out to office. Documented by Diamond Borja LPN on behalf of: Jose Rodriguez DO documented in this encounter [facility] 06-29-2024 History of Presen t illness [...] blood transfusion Lead poisoning Nonsmoker Post depression ([facility]) Family History Problem Relation Name Age of [...] or undercooked meat, and stay away from [facility]. Patient has also been advised to [...] by: Whitney Peacock documented in this encounter [facility] [employer] 12-26-2022 Evaluation note Encounter Date Diagnosis Assessment [...] appointment to be seen soon as possible [employer] Other [employer] noteNo assessment information available [facility] Work Phone: evaluation note* Diagnosis Missed menses , unspecified gestational age Encounter for supervision of normal first in first trimester Nausea Nausea alone 7 weeks gestation of documented in this encounter [facility] [employer] note* Diagnosis Miscarriage Unspecified spontaneous without mention of complication documented in this encounter [facility] [employer] note* Diagnosis Postoperative examination Follow-up examination, following unspecified surgery documented in this encounter [facility] spotfluxation note* Diagnosis 13 weeks gestation of Second trimester state, incidental documented in this encounter [facility] [employer] note* Diagnosis Screening, , for anatomic survey Encounter for anatomic survey Well woman exam with routine gynecological exam Routine gynecological examination STD exposure Second trimester state, incidental 18 weeks gestation of Urinary frequency documented in this encounter [facility] EdgeioEvaluation note* Diagnosis Second trimester (HHS-HCC) state, incidental 21 weeks gestation of (HHS-HCC) documented in this encounter [facility] EdgeioEvaluation note* Diagnosis Second trimester (HHS-HCC) state, incidental 25 weeks gestation of (HHS-HCC) Diabetes mellitus screening Screening for diabetes mellitus Elevated BP without diagnosis of hypertension documented in this encounter [facility] EdgeioEvaluation note* Diagnosis Second trimester (HHS-HCC) state, incidental 27 weeks gestation of (HHS-HCC) induced hypertension, antepartum (HHS-HCC) Transient hypertension of , antepartum documented in this encounter [facility] EdgeioEvaluation note* Diagnosis BP check Screening for hypertension -induced hypertension in third trimester (HHS-HCC) Gestational diabetes mellitus (GDM) in third trimester, gestational diabetes method of control unspecified (HHS-HCC) documented in this encounter [facility] Diagnosis Gestational diabetes mellitus (GDM), antepartum, gestational diabetes method of control unspecified (HHS-HCC) Elevated glucose tolerance test Impaired glucose tolerance test documented in this encounter [facility] HealthcareEvaluation note* Diagnosis Gestational diabetes mellitus (GDM) in third trimester, gestational diabetes method of control unspecified documented in this encounter [facility] System[facility]* Diagnosis Third trimester (HHS-HCC) state, incidental 30 weeks gestation of (HHS-HCC) induced hypertension, antepartum (HHS-HCC) Transient hypertension of , antepartum documented in this encounter [facility] HealthcareInstructionsNot on filedocumented in this encounterProKe[facility]an [facility] SystemInstructionsNot on filedocumented in this encounterProKeenan Private Hospital System Summary Purpose Family History No Family History Records FoundNo Family History Records FoundNo Family History Records FoundNo Family History Records FoundNo Family History Records Found Advance Directives No Advanced Directives Records Found Advance Directive Response Recorded Date/ Time Advance Directives No December 27 23 6:21am Additional Source Comments INFORMATION SOURCE (unrecogn ized section and content) DATE CREATED AUTHOR 09/24/2021 [facility] DATE CREATED AUTHOR AUTHOR'S ORGANIZ ATION 12/07/[address] [facility] DATE CREATED AUTHOR AUTHOR'S ORGANIZ ATION 08/15/2024 [facility] DATE CREATED AUTHOR AUTHOR'S ORGANIZ ATION 05/14/2025 [facility] DATE CREATED AUTHOR AUTHOR'S ORGANIZ ATION 05/16/2025 [facility] d[facility] Specialists EPIC REASON FOR VISIT [...] method of control unspecified Jose Rodriguez, DO [address] [place] [address] [address] [place] [place] [address] Phone: tel: fax: Maternal- Medicine at [facility] [address] [place] [address] Phone: tel: fax: Referral ID Status Reason Start Date Expiration Date Visits Requested Visits Authorized [id number] Pending Review Specialty Services Required 05/09/2025 05/09/2026 1 1 Care Teams (unrecognized sec tion and content) Team Status: Inactive Member Role Status Dates Jennifer Huston NP-C Attending Provider Active Log Haul Chain Feeder Relationship Specialty Start Date End Date Vaishali Zapata MD [address] [place] [address] PCP - General Family Medicine 02/04/23 Log Haul Chain Feeder Relationship Specialty Start Date End Date Vaishali Zapata MD [address] [place] [address] PCP - General Family Medicine 02/04/23 Team Status: Active Member Role Status Dates PHYSICIAN NO FAMILY Primary Care Provider Active Team Status: Inactive Member Role Status Dates PHYSICIAN NO FAMILY Primary Care Provider Active Start: August 10, 2024 End: August 10, 2024 Jose Rodriguez DO Attending Provider Active Start : August 10, 2024 End: August 10, 2024 Log Haul Chain Feeder Relationship Specialty Start Date End Date Unallocated, Arjun Vo MD [facility] [address] [facility] [place] [address] PCP - General Family Medicine 08/03/24 Log Haul Chain Feeder Relationship Specialty Start Date End Date Unallocated, Arjun Vo MD [facility] [place] [address] PCP - General Family Medicine 08/03/24 Log Haul Chain Feeder Relationship Specialty Start Date End Date Unallocated, Arjun Vo MD [facility] [place] [address] PCP - General Family Medicine 08/03/24 Log Haul Chain Feeder Relationship Specialty Start Date End Date Unallocated, Arjun Vo MD [facility] [place] [address] PCP - General Family Medicine 08/03/24 Log Haul Chain Feeder Relationship Specialty Start Date End Date Unallocated, Arjun Vo MD [facility] [address] [facility] [place] [address] PCP - General Family Medicine 08/03/24 Log Haul Chain Feeder Relationship Specialty Start Date End Date Unallocated, Arjun Vo MD [facility] [place] [address] PCP - General Family Medicine 08/03/24 Log Haul Chain Feeder Relationship Specialty Start Date End Date Unallocated, Arjun Vo MD [facility] [address] [facility] [place] [address] PCP - General Family Medicine 08/03/24 Log Haul Chain Feeder Relationship Specialty Start Date End Date Unallocated, Arjun Vo MD [facility] [address] [facility] [place] [address] PCP - General Family Medicine 08/03/24 Log Haul Chain Feeder Relationship Specialty Start Date End Date Unallocated, Arjun Vo MD [facility] [address] [facility] [place] [address] PCP - General Family Medicine 08/03/24 Log Haul Chain Feeder Relationship Specialty Start Date End Date Unallocated, Arjun Vo MD [facility] [place] [facility] [place] [address] PCP - General Family Medicine 08/03/24 Log Haul Chain Feeder Relationship Specialty Start Date End Date Unallocated, Arjun Vo MD [facility] [address] [facility] [place] [address] PCP - General Family Medicine 08/03/24 Log Haul Chain Feeder Relationship Specialty Start Date End Date Unallocated, Arjun Vo MD [facility] [place] [facility] [place] [address] PCP - General Family Medicine 08/03/24 Log Haul Chain Feeder Relationship Specialty Start Date End Date Unallocated, Noms Gilda, MD [address] [facility] [place] [phone] PCP - General Family Medicine 08/03/24 Goals [...] BE BASED ON THE PRIMARY CLINICAL RECORDS. [employer] [facility]. provides no warranty or guarantee of the accuracy or completeness of information in this document.
--- OUTSIDE RECORDS SUMMARY | 2025-05-18 11:12 | XMS_ITS | Encounter Summary ---
Author Organization [facility] Address [address] [place] [address] Care Team Providers Care Health Education Director Name Role Phone Unallocated, Noms Provider Primary Care Provi krissy Encounter Details Date Type Department Care Team (Late st Contact Info) Description 08/10/2024 Abstract ARJUN PANG [place] [address] Jose Rodriguez DO [address], [place] [address] Social History Tobacco Use Types Packs/Day Years [...] 05/22/2025 2:40 PM EDT Routine [facility] [place] [address] Jose Rodriguez DO [address], [facility]11 documented as of this encounter Visit Diagnoses Not on filedocumented in this encounter Care Teams Health Education Director Relationship Specialty Start Date End Date Unallocated, Noms Provider, [address] [place] [address] PCP - General Family Medicine 08/03/24 documented as of this encounter
--- OUTSIDE RECORDS SUMMARY | 2025-05-18 11:12 | XMS_ITS | Encounter Summary ---
Author Organization [facility] Address [address] [place] [address] Care Team Providers Care Sales Assistant Institutional Sales Name Role Phone Unallocated, Noms Provider Primary Care Provi krissy Encounter Details Date Type Department Care Team (Late st Contact Info) Description 05/04/2025 Clinisync Result Encounter [facility] External Department Unsolicited Collin Leach PA [address] [place], [id number] Social History Tobacco Use Types Packs/Day Years [...] PM EDT Routine [facility] [address] [place] [phone] Jose Rodriguez DO [address] [facility] [address] Josué [place], [id number] documented as of this encounter Procedures Procedure Name Priority Date/Time Associated Diagnosis Comments US OB BPP W NON-STRESS 05/04/2025 12:09 PM EDT documented in this encounter Results * US OB BPP W NON-STRESS (05/04/2025 12:09 PM EDT) Anatomical Region Laterality Modality Other 05/04/2025 12:0 9 PM EDT Narrative 05/04/2025 12:12 [place] [address] Ultrasound Report Signed Patient: VIMAL PIZANO MR#: [id number] : 2000 Acct:[id number] Age/Sex: 25 / F ADM Date: 05/04/25 Loc: [facility] 250-[address]: Collin Leach Ordering Physician: Collin Leach Date of Service: 05/04/25 Procedure(s): US OB BPP w non-stress Accession Number(s): [id number] cc: Collin Leach; LUIS SEE [address] [address] Patient Name: VIMAL PIZANO MRN: [id number] date: 2000 Sex: F Assigned Patient Location: [facility] Current Patient Location: [facility] Accession/Order Number: [id number] Exam Date: 05/04/2025 12:08 Report Date: 05/04/2025 12:09 At the request of: COLLIN LEACH Procedure: US OB BPP w non-stress Biophysical profile. Reason for exam: Gestational diabetes COMPARISON: None TECHNIQUE: Transabdominal imaging of the gravid uterus was obtained. FINDINGS: The chiropractic care reports a BPP of 8 out of 8. DANYA is normal at 12.4 cm. heart rate 150 bpm. US/US OB BPP w non-stress IMPRESSION: BPP 8 out of 8. Impression dictated by: Bulmaro Arias Jr., D.O. 05/04/2025 12:09 PM Dictation Location: [employer]-18 Electronically authenticated by: [id number] Y Date: 05/04/2025 12:09 Dictated By: Bulmaro Arias M.D. Signed By: 05/04/25 1212 DD/ 1209 TD/TT: Relationship Associate: Procedure Note Radiology, Radiologist, - 05/04/2025 [place] [address] Ultrasound Report Signed Patient: VIMAL PIZANO MMR#: [id number] : 2000Acct:[id number] Age/Sex: 25 / FADM Date: 05/04/25 Loc: [place] [address]: Collin Leach Ordering Physician: Collin Leach Date of Service: 05/04/25 Procedure(s): US OB BPP w non-stress Accession Number(s): [id number] cc: Collin Leach; LUIS SEE [place] [id number] Patient Name: VIMAL PIZANO MRN: [id number] date: 2000 Sex: F Assigned Patient Location: [facility] Current Patient Location: [facility] Accession/Order Number: [id number] Exam Date: 05/04/2025 12:08 Report Date: 05/04/2025 12:09 At the request of: COLLIN LEACH Procedure: US OB BPP w non-stress Biophysical profile. Reason for exam: Gestational diabetes COMPARISON: None TECHNIQUE: Transabdominal imaging of the gravid uterus was obtained. FINDINGS: The chiropractic care reports a BPP of 8 out of 8. DANYA is normal at12.4 cm. heart rate 150 bpm. US/US OB BPP w non-stress IMPRESSION: BPP 8 out of 8. Impression dictated by: Bulmaro Arias Jr., D.O. 05/04/2025 12:09 PM Dictation Location: [employer]-18 Electronically authenticated by: [id number] Y Date: 2:09 Dictated By: Bulmaro Arias M.D. Signed By:05/04/25 1212 DD/ 1209 TD/TT: Relationship Associate: us Collin BISWAS [facility] Final Result documented in this encounter Visit Diagnoses Not on filedocumented in this encounter Care Teams Sales Assistant Institutional Sales Relationship Specialty Start Date End Date Unallocated, Noms Provider, [address] [place] [address] PCP - General Family Medicine 08/03/24 documented as of this encounter
--- OUTSIDE RECORDS SUMMARY | 2025-05-18 11:12 | XMS_ITS | Encounter Summary ---
Author Organization [facility] Address [address] [place] [address] Care Team Providers Care Marketing Database Consultant Name Role Phone Vaishali Zapata MD Primary Care Provider Bipin cheng Unallocated, Noms Provider Primary Care Provi krissy Encounter Details Date Type Department Care Team (Late st Contact Info) Description 06/28/2024 Abstract ARJUN PANG [address] [place] [address] Jose Rodriguez DO [address], [place] [address] Social History Tobacco Use Types Packs/Day Years [...] 2:40 PM EDT Routine ARJUN PANG [address] [place] [address] Jose Rodriguez DO [address], [id number] documented as of this encounter Visit Diagnoses Not on filedocumented in this encounter Care Teams Marketing Database Consultant Relationship Specialty Start Date End Date Vaishali Zapata MD [address] [place] [address] PCP - General Family Medicine 02/04/23 08/02/24 Unallocated, Noms Provider, [address] [place] [address] PCP - General Family Medicine 08/03/24 documented as of this encounter
--- OUTSIDE RECORDS SUMMARY | 2025-05-18 11:12 | XMS_ITS | Encounter Summary ---
Author Organization [facility] Address [address] [place] [address] Care Team Providers Care Barista Name Role Phone Unallocated, Noms Provider Primary Care Provi krissy Encounter Details Date Type Department Care Team (Late st Contact Info) Description 08/10/2024 Abstract ARJUN PANG [facility] [place] [address] Jose Rodriguez DO [address], [place] [address] Social History Tobacco Use Types Packs/Day Years [...] 05/22/2025 2:40 PM EDT Routine ARJUN PANG [facility] [place] [address] Jose Rodriguez DO [address], [facility] documented as of this encounter Visit Diagnoses Not on filedocumented in this encounter Care Teams Barista Relationship Specialty Start Date End Date Unallocated, Noms Provider, [address] [place] [address] PCP - General Family Medicine 08/03/24 documented as of this encounter
--- OUTSIDE RECORDS SUMMARY | 2025-05-18 11:12 | XMS_ITS | Encounter Summary ---
Author Organization [facility] Address [address] [place] [address] Care Team Providers Care Marketing Content Specialist Name Role Phone Unallocated, Noms Provider Primary Care Provi krissy Encounter Details Date Type Department Care Team (Late st Contact Info) Description 05/06/2025 Clinisync Result Encounter [facility] External Department Unsolicited Rossana Ramos PA [address] [place], [facility]11 Social History Tobacco Use Types Packs/Day Years [...] OBGYN [address] [place] [phone] Jose Rodriguez DO [address] [facility] [address] Josué [place], [facility]11 documented as of this encounter Procedures Procedure [...] EDT us Rossana [facility] Final Result [facility] documented in this encounter Visit Diagnoses Not on filedocumented in this encounter Care Teams Marketing Content Specialist Relationship Specialty Start Date End Date Unallocated, Noms Provider, [address] [place] [address] PCP - General Family Medicine 08/03/24 documented as of this encounter
--- OUTSIDE RECORDS SUMMARY | 2025-05-18 11:12 | XMS_ITS | Encounter Summary ---
Author Organization [facility] Address [address] [place] [address] Care Team Providers Care Wool Dyer Name Role Phone Unallocated, Noms Provider Primary Care Provi krissy Encounter Details Date Type Department Care Team (Late st Contact Info) Description 05/07/2025 Results Follow-Up ARJUN [place] OBGYKeegan [address] [facility] [address] [address] [place] [address] Glenna Butler LPN [address] [place] [address] ALL CBC WITH AUTO DIFF, [...] Description 05/22/2025 2:40 PM EDT Routine ARJUN [place] OBGYN [address] [facility] [place] [address] Jose Rodriguez DO [address] [facility] [address] [place] [place] [address] documented as of this encounter Visit Diagnoses Not on filedocumented in this encounter Care Teams Wool Dyer Relationship Specialty Start Date End Date Unallocated, Arjun Vo MD [address] [place] [address] PCP - General Family Medicine 08/03/24 documented as of this encounter
--- OUTSIDE RECORDS SUMMARY | 2025-05-18 11:12 | XMS_ITS | Encounter Summary ---
Author Organization [facility] Address [address] [place] [address] Care Team Providers Care Boarding Machine Operator Name Role Phone Vaishali Chaidez MD Primary Care Provider Bipin cheng Unallocated, Noms Provider Primary Care Provi krissy Encounter Details Date Type Department Care Team (Late st Contact Info) Description 06/29/2024 Clinisync Result Encounter [facility] External Department Unsolicited Mackenzie Rodriguez, DO [address], [place] [id number] Social History Tobacco Use Types Packs/Day Years [...] Routine [facility] [address] [place] [phone] Mackenzie Rodriguez DO [address] [place] [address] documented as of this encounter Procedures Procedure Name Priority Date/Time Associated Diagnosis Comments US OB TRANSVAGINAL 06/29/2024 9: 11 AM EDT documented in this encounter Results * US OB TRANSVAGINAL (06/29/2024 9:11 AM EDT) Anatomical Region Laterality Modality Other 06/29/2024 9:11 AM EDT Narrative 06/29/2024 9:14 [place] [address] Ultrasound Report Signed Patient: Vimal Pizano MR#: [id number] : 2000 Acct:[id number] Age/Sex: 24 / F ADM Date: 06/29/24 Loc: [facility] Attending Dr: Mackenzie Rodriguez D.O. Ordering Physician: Mackenzie Rodriguez D.O. Date of Service: 06/29/24 Procedure(s): US OB transvaginal Accession Number(s): [id number] cc: Mackenzie Rodriguez D.O.; VAISHALI CHAIDEZ [place] [address] Patient Name: VIMAL PIZANO MRN: [id number] date: 2000 Sex: F Assigned Patient Location: [facility] Current Patient Location: [facility] Accession/Order Number: [id number] Exam Date: 06/29/2024 08:37 Report Date: 06/29/2024 [...] M.D. Signed By: 06/29/24913 DD/ 0 TD/TT: Fruit Thinner Machine Operator: Procedure Note Radiology, Radiologist, MD - 06/29/2024 [place] [address] Ultrasound Report Signed Patient: Vimal Pizano MMR#: [id number] : 2000Acct:[id number] Age/Sex: 24 / FADM Date: 06/29/24 Loc: [facility] Attending Dr: Mackenzie Rodriguez D.O. Ordering Physician: Mackenzie Rodriguez D.O. Date of Service: 06/29/24 Procedure(s): US OB transvaginal Accession Number(s): [id number] cc: Mackenzie Rodriguez D.O.; VAISHALI CHAIDEZ [place] [address] Patient Name: VIMAL PIZANO MRN: [id number] date: 2000 Sex: F Assigned Patient Location: [facility] Current Patient Location: [facility] Accession/Order Number: [id number] Exam Date: 06/29/2024 08:37 Report Date: 06/29/2024 [...] Herrera M.D. Signed By:06/29/24913 DD/ 0 TD/TT: Fruit Thinner Machine Operator: us Mackenzie Michael DO [facility] Final Result documented in this encounter Visit Diagnoses Not on filedocumented in this encounter Care Teams Boarding Machine Operator Relationship Specialty Start Date End Date Vaishali Chaidez MD [address] [place] [address] PCP - General Family Medicine 02/04/23 08/02/24 Unallocated, Noms Provider, [address] [place] [address] PCP - General Family Medicine 08/03/24 documented as of this encounter
--- OUTSIDE RECORDS SUMMARY | 2025-05-18 11:12 | XMS_ITS | Encounter Summary ---
Author Organization [facility] Address [address] [place] [address] Care Team Providers Care Precision Assembler Bench Name Role Phone Unallocated, Noms Provider Primary Care Provi krissy Encounter Details Date Type Department Care Team (Late st Contact Info) Description 05/08/2025 Abstract ARJUN PANG [facility] [place] [address] Jose Rodriguez DO [address], [facility]11 Social [...] Description 05/22/2025 2:40 PM EDT Routine [facility] [address] [place] [address] Jose Rodriguez DO [address] [facility] [address] [place] [address] documented as of this encounter Visit Diagnoses Not on filedocumented in this encounter Care Teams Precision Assembler Bench Relationship Specialty Start Date End Date Unallocated, Noms Provider, [place] [address] PCP - General Family Medicine 08/03/24 documented as of this encounter
--- OUTSIDE RECORDS SUMMARY | 2025-05-18 11:12 | XMS_ITS | Encounter Summary ---
Author Organization [facility] Address [address] [place] [address] Care Team Providers Care Biometrics Specialist Name Role Phone Vaishali Zapata MD Primary Care Provider Bipin cheng Unallocated, Noms Provider Primary Care Provi krissy Encounter Details Date Type Department Care Team (Late st Contact Info) Description 06/29/2024 Abstract ARJUN PANG [address] [place] [address] Jose Rodriguez DO [address], [place] [address] Social History Tobacco Use Types Packs/Day Years [...] 2:40 PM EDT Routine ARJUN PANG [address] [place] [address] Jose Rodriguez DO [address], [facility]11 documented as of this encounter Visit Diagnoses Not on filedocumented in this encounter Care Teams Biometrics Specialist Relationship Specialty Start Date End Date Vaishali Zapata MD [address] [place] [address] PCP - General Family Medicine 02/04/23 08/02/24 Unallocated, Noms Provider, [address] [place] [address] PCP - General Family Medicine 08/03/24 documented as of this encounter
--- OUTSIDE RECORDS SUMMARY | 2025-05-18 11:12 | XMS_ITS | Encounter Summary ---
Author Organization [facility] Address [address] [place] [address] Care Team Providers Care Cementer Name Role Phone Unallocated, Noms Provider Primary Care Provi krissy Encounter Details Date Type Department Care Team (Late st Contact Info) Description 05/04/2025 Clinisync Result Encounter [facility] External Department Unsolicited Rossana Ramos PA [address] [place], [facility]11 Social History Tobacco Use Types [...] EDT Routine [facility] [address] [place] [id number] Jose Rodriguez DO [address] [place], [facility]11 documented as of this encounter Procedures [...] BISWAS CLINISYPROSPER Final Result Performing Organization Address [facility] Co de Phone Number CLINISYNC TB * [facility] AST (05/04/2025 7:23 AM EDT) ASPARTATE AMINO TRANSFERASE 23 15 - 37 U/L TBH 05/04/2025 7:23 AM EDT 05/04/2025 7:30 AM EDT Narrative CLINISYNC - 05/04/2025 8:21 AM EDT us Rossana ROSENBERGISYPROSPER Final Result Performing Organization Address [facility] de Phone Number CLINISYNC TB * ALL URIC ACID (05/04/2025 7:23 AM EDT) URIC ACID 3.7 2.6 - 6.0 mg/dL TB 05/04/2025 7:23 AM EDT 05/04/2025 7:30 AM EDT Narrative CLINISYNC - 05/04/2025 8:21 AM EDT us Rossana ROSENBERGISYPROSPER Final Result Performing Organization Address [facility] Co de Phone Number CLINISYNC TB * (ABNORMAL) TBH CREATININE (05/04/2025 7:23 AM EDT) CREATININE 0.37(L) 0.55 - 1.02 mg/dL TBH TBH EGFR-AF ECUADOREAN >60 >=60 mL/min/1.7 3m 2 TBH TBH EGFR-NON AF ECUADOREAN >60 >=60 mL/min/1.7 3m 2 TBH 05/04/2025 7:23 AM EDT 05/04/2025 7:30 AM EDT Narrative CLINISYNC - 05/04/2025 8:21 AM EDT us Rossana BISWAS CLINISYPROSPER Final Result Performing Organization Address [facility] de Phone Number CLINBARRETTNC [facility] * ALL BUN (05/04/2025 7:23 AM EDT) BLOOD UREA NITROGEN 8.0 7.0 - 18.0 mg/dL TBH 05/04/2025 7:23 AM EDT 05/04/2025 7:30 AM EDT Narrative CLINISYNC - 05/04/2025 8:21 AM EDT us Rossana ROR Final Result Performing Organization Address [facility] de Phone Number [facility] * [facility] APTT (05/04/2025 7:23 AM EDT) PARTIAL THROMBOPLASTIN TIME 25.7 22.3 - 36.2 sec TB 05/04/2025 7:23 AM EDT 05/04/2025 7:30 AM EDT Narrative CLINISYNC - 05/04/2025 8:04 AM EDT Rossana ORR Final Result Performing Organization Address [facility] de Phone Number CLINALICE [facility] * SRMCOH PROTHROMBIN TIME INR W/O [...] EDT us Rossana BISWAS CLINALICE Final Result [facility] documented in this encounter Visit Diagnoses Not on filedocumented in this encounter Care Teams Cementer Relationship Specialty Start Date End Date Unallocated, Noms Provider, [address] [place] [address] PCP - General Family Medicine 08/03/24 documented as of this encounter
--- OUTSIDE RECORDS SUMMARY | 2025-05-18 11:13 | XMS_ITS | Encounter Summary ---
Author Organization [facility] Address [address] [place] [address] Care Team Providers Care Paid Internship Name Role Phone Unallocated, Noms Provider Primary Care Provi krissy Encounter Details Date Type Department Care Team (Late Contact Info) Description 03/28/2025 Abstract [facility] [place] [phone] Jose Rodriguez DO [address], [facility]11 Social History Tobacco Use Types [...] Description 05/22/2025 2:40 PM EDT Routine [facility] [address] [place] [phone] Jose Rodriguez DO [address] [place] [place] [address] documented as of this encounter Visit Diagnoses Not on filedocumented in this encounter Care Teams Paid Internship Relationship Specialty Start Date End Date Unallocated, Noms Provider, [place] [address] PCP - General Family Medicine 08/03/24 documented as of this encounter
--- OUTSIDE RECORDS SUMMARY | 2025-05-18 11:13 | XMS_ITS | Encounter Summary ---
Author Organization [facility] [employer] [facility] tem Address [id number] [address] [place] [address] Care Team Providers Care Ingredient Handler Name Role Phone Unavailable Primary Care Provider Unavailabl e Encounter Details Date Type Department Care Team (Late Contact Info) Description 05/10/2025 Abstract [facility]- Medicine at [facility] [address] [place] [phone] External, Scanning Provider Social History Tobacco Use [...] Department Care Team (Late Contact Info) Description 06/04/2025 1:[address] [facility] - Ultrasound [address] [place] [address] Jose Rodriguez, DO [address] [facility] [address] [place] [address] documented as of this encounter Procedures Procedure [...] ORDERABLES Kayli l Result Performing Organization Address [facility] de Phone Number MANUALLY TRANSCRIBED RESULTS * Glucose, tolerance fasting (05/04/2025) Glucose Tolerance Test Fasting 108 MANUALLY TRANSCRIBED RESULTS Blood Venous blood / Unknown us Not In System Ref Prov LAB BLOOD ORDERABLES Kayli l Result Performing Organization Address [facility] Co de Phone Number MANUALLY TRANSCRIBED RESULTS * Glucose tolerance, 1 hour (05/04/2025) Glucose Tolerance Test 1 Hour 234 MANUALLY TRANSCRIBED RESULTS Blood Venous blood / Unknown us Not In System Ref Prov LAB BLOOD ORDERABLES Kayli l Result Performing Organization Address [facility] de Phone Number MANUALLY TRANSCRIBED RESULTS * 2nd hr Glucose Tolerance 100 gm load (05/04/2025) Glucose Tolerance Test 2 Hour 186 MANUALLY TRANSCRIBED RESULTS Blood Venous blood / Unknown us Not In System Ref Prov LAB BLOOD ORDERABLES Kayli l Result Performing Organization Address [facility] de Phone Number MANUALLY TRANSCRIBED RESULTS * Glucose 1h post 50g load (04/27/2025) Glucose, 1 hr PP 50GM dose 171 MANUALLY TRANSCRIBED RESULTS Blood Venous blood / Unknown us Not In System Ref Prov LAB BLOOD ORDERABLES Kayli l Result Performing Organization Address [facility] Co de Phone Number MANUALLY TRANSCRIBED RESULTS * Unlisted Lab Test (01/05/2025) 01/05/2025 us Not In System Ref Prov LAB BLOOD ORDERABLES Kayli l Result Performing Organization Address [facility] de Phone Number MANUALLY TRANSCRIBED RESULTS * Free Cell DNA (Non-[facility] Send Out) (01/05/2025) 01/05/2025 us Not In System Ref Prov LAB BLOOD ORDERABLES Kayli l Result Performing Organization Address [facility] de Phone Number MANUALLY TRANSCRIBED RESULTS * Hemoglobin A1c (01/05/2025) Hemoglobin A1C 5.0 4.0 - 6.0 % MANUALLY TRANSCRIBED RESULTS Blood Venous blood / Unknown us Scanning Provider External LAB BLOOD ORDERABLES Final Result Performing Organization Address [facility] Co de Phone Number MANUALLY TRANSCRIBED RESULTS documented in this encounter Visit Diagnoses Not on filedocumented in this encounter
--- OUTSIDE RECORDS SUMMARY | 2025-05-18 11:13 | XMS_ITS | Patient Health Record ---
Author Organization [facility] in [place] Address [address] [place] [address] Care Team Providers Care Occupational Health Nurse Supervisor Name Role Phone Mayi Jennifer Primary Care Provider [phone] Allergies No Known Allergies Results Component Value Reference Range Notes PREG QUANT HCG Reviewed date:08/20/2024 11:36:34 AM Interpretation: Performing Lab: Notes/Report: The [facility] Quantitative 6 5-50 0.2-1 WEEK 500-10,000 3-4 WEEKS 15,000-200,000 6-8 WEEKS 10,000-100,000 2-3 MONTHS 1,000-50,000 4-5 WEEKS 50-500 1-2 WEEKS 100-5,000 2-3 WEEKS 10,000-100,000 5-6 WEEKS Performing Lab: see note ML - The [facility] LB PREG QUANT HCG Reviewed date:11/22/2024 08:59:16 AM Interpretation: Performing Lab: Notes/Report: The [facility] HCG Quantitative 91188 5-50 0.2-1 WEEK 100-5,000 2-3 WEEKS 1,000-50,000 4-5 WEEKS 10,000-100,000 2-3 MONTHS 500-10,000 3-4 WEEKS 15,000-200,000 6-8 WEEKS 10,000-100,000 5-6 WEEKS 50-500 1-2 WEEKS Performing Lab: see note ML - [facility] LB US OB incomplete anatomy Reviewed date:03/25/2025 09:01:39 AM Interpretation: Performing Lab: Notes/Report: Source Facility: [place] [address] Ultrasound Report Signed Patient: VIMAL FUNES MR#: [id number] : 2000 Acct:[id number] Age/Sex: 24 / F ADM Date: 03/23/25 Loc: US Attending Dr: Mackenzie Rodriguez D.O. Ordering Physician: Mackenzie Rodriguez D.O. Date of Service: 03/23/25 Procedure(s): US OB incomplete anatomy Accession Number(s): [id number] cc: JENNIFER SEE ; Mackenzie Rodriguez D.O. The [place] [address] Patient Name: VIMAL FUNES MRN: [id number] date: 2000 Sex: F Assigned Patient Location: US Current Patient Location: US Accession/Order Number: [id number] Exam Date: 03/25/2025 08:23 Report Date: 03/25/2025 [...] Brown M.D. 03/25/2025 8:25 AM Dictation Location: [place] [address] Electronically authenticated by: [id number] Y Date: 03/25/2025 08:25 Dictated By: Meghana Brown M.D. 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 Ordering Physician: Mackenzie Rodriguez D.O. Date of Service: 03/23/25 Procedure(s): US OB incomplete anatomy Accession Number(s): [id number] cc: JENNIFER SEE ; Mackenzie Rodriguez D.O. [facility] [address] [id number] Patient Name: VIMAL FUNES MRN: [id number] date: 2000 Sex: F Assigned Patient Location: US Current Patient Location: US Accession/Order Number: [id number] Exam Date: 03/25/2025 08:23 Report Date: 03/25/2025 [...] Brown M.D. 03/25/2025 8:25 AM Dictation Location: [place] [address] Electronically authenticated by: [id number] Y Date: 03/25/2025 08:25 Dictated By: Meghana Brown M.D. Signed By: 03/25/2527 DD/ 4 TD/TT: [employer] Engineer: [place] Reviewed date:05/06/2025 10:03:33 AM Interpretation: Performing Lab: Notes/Report: [facility] , Blood Urea Nitrogen 8.0 7.0-18.0 mg/dL Performing Lab: see note ML - [facility] LB CREATININE Reviewed date:05/06/2025 10:03:33 AM Interpretation: Performing Lab: Notes/Report: The [facility] , Creatinine 0.37 0.55-1.02 mg/dL Estimated GFR ( Ashley >60 >=60 mL/min/1.73m 2 Estimated GFR (Non- Hortencia >60 >=60 mL/min/1.73m 2 Performing Lab: see note ML - [facility] LB LDH Reviewed date:05/06/2025 10:03:33 AM Interpretation: Performing Lab: Notes/Report: [facility] , Lactate Dehydrogenase 163 81-234 U/L Performing Lab: see note - [facility] LB SGOT Reviewed date:05/06/2025 10:03:33 AM Interpretation: Performing Lab: Notes/Report: [facility] , Aspartate Amino Transferase 23 15-37 U/L Performing Lab: see note - [facility] LB URIC ACID SERUM Reviewed date:05/06/2025 10:03:33 AM Interpretation: Performing Lab: Notes/Report: [facility] , Uric Acid 3.7 2.6-6.0 mg/dL Performing Lab: see note - [facility] LB US OB BPP w non-stress Reviewed date:05/06/2025 10:03:33 AM Interpretation: Performing Lab: Notes/Report: Source Facility: [facility]-[address] [place] [address] [place] [address] Ultrasound Report Signed Patient: VIMAL FUNES MR#: [id number] : 2000 Acct:[id number] Age/Sex: 25 / F ADM Date: 05/04/25 Loc: [facility] 250-[address]: Rossana Leach Ordering Physician: Rossana Leach Date of Service: 05/04/25 Procedure(s): US OB BPP w non-stress Accession Number(s): [id number] cc: Rossana Leach; JENNIFER SEE [address] [place] [address] Patient Name: VIMAL FUNES MRN: [id number] date: 2000 Sex: F Assigned Patient Location: [facility] Current Patient Location: [facility] Accession/Order Number: [id number] Exam Date: 05/04/2025 12:08 Report Date: 05/04/2025 12:09 At the request of: ROSSANA LEACH Procedure: US OB BPP w non-stress Biophysical profile. Reason for exam: Gestational diabetes COMPARISON: None TECHNIQUE: Transabdominal imaging of the gravid uterus was obtained. FINDINGS: The health technician hearing reports a BPP of 8 out of 8. DANYA is normal at 12.4 cm. heart rate 150 bpm. US/US OB BPP w non-stress IMPRESSION: BPP 8 out of 8. Impression dictated by: Bulmaro Arias Jr., D.O. 05/04/2025 12:09 PM Dictation [facility] Electron[facility] authenticated by: [id number] Y Date: 05/04/2025 12:09 Dictated By: Bulmaro Arias M.D. Signed By: 05/04/25 1212 DD/ 1209 TD/TT: [employer] Plant Engineer: [address] [address] Ultrasound Report Signed Patient: VIMAL FUNES MR#: [id number] : 2000 Acct:[id number] Age/Sex: 25 / F ADM Date: 05/04/25 Loc: [place] [address]: Rossana Leach Ordering Physician: Rossana Leach Date of Service: 05/04/25 Procedure(s): US OB BPP w non-stress Accession Number(s): [id number] cc: Rossana Leach; JENNIFER SEE [address] [address] Patient Name: VIMAL FUNES MRN: [id number]:[id number] date: 2000 Sex: F Assigned Patient Location: [facility] Current Patient Location: [facility] Accession/Order Number: [id number] Exam Date: 05/04/2025 12:08 Report Date: 05/04/2025 12:09 At the request of: ROSSANA LEACH Procedure: US OB fet al BPP w non-stress Biophysical profile. Reason for exam: Gestational diabetes COMPARISON: None TECHNIQUE: Transabdominal imaging of the gravid uterus was obtained. FINDINGS: The health technician hearing reports a BPP of 8 out of 8. DANYA is normal at 12.4 cm. heart rate 150 bpm. US/US OB BPP w non-stress IMPRESSION: BPP 8 ou t of 8. Impression dictated by: Bulmaro Arias Jr., D.O. 05/04/2025 12:09 PM Dictation Location[facility] Electronically authenticated by: [id number] Y Date: 05/04/2025 12:09 Dictated By: Bulmaro Arias M.D. Signed By: 05/04/25 1212 DD/ 1209 TD/TT: [employer] Engineer: US OB growth Reviewed date:05/06/2025 10:03:33 AM Interpretation: Performing Lab: Notes/Report: Source Facility: [place] [address] Ultrasound Report Signed Patient: VIMAL FUNES MR#: [id number] : 2000 Acct:[id number] Age/Sex: 25 / F ADM Date: 05/04/25 Loc: [place] [address]-[address]: Rossana Leach Ordering Physician: Rossana Leach Date of Service: 05/04/25 Procedure(s): US OB growth Accession Number(s): [id number] cc: Rossana Leach; JENNIFER SEE [place] [address] Patient Name: VIMAL FUNES MRN: [id number] date: 2000 Sex: F Assigned Patient Location: [facility] Current Patient Location: [facility] Accession/Order Number: [id number] Exam Date: 05/04/2025 12:06 Report Date: 05/04/2025 [...] Jr., D.O. 05/04/2025 12:08 PM Dictation Location: [facility] Electronically authenticated by: [id number] Y Date: 05/04/2025 12:08 Dictated By: Bulmaro Arias M.D. Signed By: 05/04/25 1211 DD/ 1208 TD/TT: [employer] Plant Engineer: [place] [address] Ultrasound Report Signed Patient: VIMAL FUNES MR#: [id number] : 2000 Acct:[id number] Age/Sex: 25 / F ADM Date: 05/04/25 Loc: [place] [address]: Rossana Leach Ordering Physician: Rossana Leach Date of Service: 05/04/25 Procedure(s): US OB growth Accession Number(s): [id number] cc: JENNIFER Watkins [place] [id number] Patient Name: VIMAL FUNES MRN: [id number] date: 2000 Sex: F Assigned Patient Location: [facility] Current Patient Location: [facility] Accession/Order Number: [id number] Exam Date: 05/04/2025 12:06 Report Date: 05/04/2025 [...] Jr., D.O. 05/04/2025 12:08 PM Dictation Location: [facility] Electronically authenticated by: [id number] Y Date: 05/04/2025 12:08 Dictated By: Bulmaro Arias M.D. Signed By: 05/04/25 1211 DD/ 1208 TD/TT: [employer] Plant Engineer: Total Protein 24 Hour Urine Reviewed date:05/07/2025 09:01:34 AM Interpretation: Performing Lab: Notes/Report: [facility] , Total Protein Urine Random <6.0 <=11.9 mg/dL Total Volume 24 Hour Urine 3700 Performing Lab: see note ML - [facility] LB Prothrombin Time INR Reviewed date:05/06/2025 10:03:33 AM Interpretation: Performing Lab: Notes/Report: [facility] , Prothrombin Time 10.1 9.0-11.6 sec INR 0.95 2.5-3.5 RECURRENT THROMBOSIS 2.0-3.0 CONDITIONS NOT LISTED BELOW 2.5-3.5 FOR PROSTHETIC HEART VALVE REPLACEMENT DESIRED INR: Performing Lab: see note ML - [facility] LB PTT Reviewed date:05/06/2025 10:03:33 AM Interpretation: Performing Lab: Notes/Report: [facility] , Partial Thromboplastin Time 25.7 22.3-36.2 sec Performing Lab: see note ML - [facility] LB CBC AUTO DIFF Reviewed date:05/06/2025 10:03:33 AM Interpretation: Performing Lab: Notes/Report: [facility] , White Blood Count 12.5 4.0-11.0 10 [...] Performing Lab: see note ML - [facility] LB CBC AUTO DIFF Reviewed date:04/29/2025 09:37:12 AM Interpretation: Performing Lab: Notes/Report: [facility] , White Blood Count 12.5 4.0-11.0 10 [...] 3/uL Performing Lab: see note ML - [facility] US OB anatomy Reviewed date:03/14/2025 10:39:54 AM Interpretation: Performing Lab: Notes/Report: Source Facility: [place] [address] Ultrasound Report Signed Patient: VIMAL FUNES MR#: [id number] : 2000 Acct:[id number] Age/Sex: 24 / F ADM Date: 03/08/25 Loc: US Attending Dr: Mackenzie Rodriguez D.O. Ordering Physician: Mackenzie Rodriguez D.O. Date of Service: 03/08/25 Procedure(s): US OB anatomy Accession Number(s): [id number] cc: JENNIFER SEE ; Mackenzie Rodriguez D.O. [place] [address] Patient Name: VIMAL FUNES MRN: [id number] date: 2000 Sex: F Assigned Patient Location: US Current Patient Location: US Accession/Order Number: [id number] Exam Date: 03/08/2025 20:31 Report Date: 03/08/2025 [...] Knapp M.D. 03/08/2025 8:36 PM Dictation Location: [facility] Electronically authenticated by: [id number] Y Date: 03/08/2025 20:36 Dictated By: Shivam Knapp D.O. 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 Ordering Physician: Mackenzie Rodriguez D.O. Date of Service: 03/08/25 Procedure(s): US OB anatomy Accession Number(s): [id number] cc: JENNIFER SEE ; Mackenzie Rodriguez D.O. [address] [address] Patient Name: VIMAL FUNES MRN: [facility]:[id number] date: 2000 Sex: F Assigned Patient Location: Current Patient Location: Accession/Order Number: [id number] Exam Date: 03/08/2025 20:31 Report Date: 03/08/2025 [...] Knapp M.D. 03/08/2025 8:36 PM Dictation Location: [place] [address] Electronically authenticated by: [id number] Y Date: 03/08/2025 20:36 Dictated By: Shivam Knapp D.O. Signed By: 03/08/252037 DD/ 35 TD/TT: [employer] Plant Engineer: US OB cervical length Reviewed date:03/14/2025 10:39:54 AM Interpretation: Performing Lab: Notes/Report: Source Facility: [place] [address] Ultrasound Report Signed Patient: VIMAL FUNES MR#: [id number] : 2000 Acct:[id number] Age/Sex: 24 / F ADM Date: 03/08/25 Loc: US Attending Dr: Mackenzie Rodriguez D.O. Ordering Physician: Mackenzie Rodriguez D.O. Date of Service: 03/08/25 Procedure(s): US OB cervical length Accession Number(s): [id number] cc: JENNIFER SEE ; Mackenzie Rodriguez D.O. [place] [address] Patient Name: VIMAL FUNES MRN: [facility]:[id number] date: 2000 Sex: F Assigned Patient Location: US Current Patient Location: US Accession/Order Number: [id number] Exam Date: 03/08/2025 20:31 Report Date: 03/08/2025 20:36 At the request of: MACKENZIE RODIRGUEZ DO Procedure: US OB anatomy Ultrasound assessment [...] Knapp M.D. 03/08/2025 8:36 PM Dictation Location: [place] [address] Electronically authenticated by: [id number] Y Date: 03/08/2025 20:36 Dictated By: Shivam Knapp D.O. Signed By: 03/08/252037 DD/ 35 TD/TT: [employer] Plant Engineer: [place] [address] Ultrasound Report Signed Patient: VIMAL FUNES MR#: [id number] : 2000 Acct:[id number] Age/Sex: 24 / F ADM Date: 03/08/25 Loc: US Attending Dr: Mackenzie Rodriguez D.O. Ordering Physician: Mackenzie Rodriguez D.O. Date of Service: 03/08/25 Procedure(s): US OB cervical length Accession Number(s): [id number] cc: JENNIFER SEE ; Mackenzie Rodriguez D.O. [address] [place] [id number] Patient Name: VIMAL FUNES MRN: [id number]:[id number] date: 2000 Sex: F Assigned Patient Location: US Current Patient Location: US Accession/Order Number: [id number] Exam Date: 03/08/2025 20:31 Report Date: 03/08/2025 [...] Knapp M.D. 03/08/2025 8:36 PM Dictation Location: [place] [address] Electronically authenticated by: [id number] Y Date: 03/08/2025 20:36 Dictated By: Shivam Knapp D.O. Signed By: 03/08/252037 DD/ 35 TD/TT: [employer] Plant Engineer: KRIS,Aptima HPV,Age Gdln Reviewed date:02/25/2025 03:13:18 PM Interpretation: Performing Lab: Notes/Report: SPATULA-ALONE ENDOCERVIX [facility] , Age Gdln ACOG Testing Note . Age Algo ACOG Yris... 21-29 Clinician Provided Cytology Information Jenise Byrne MD, <-Panic Low,>-Panic High,A-Abnormal,AA-Cri tical Abnormal L-Low Normal,H-High Normal,LL-Alert Low,HH-Alert High TESTS RESULT FLAG UNITS REF RANGE LAB Source.............End ocervix FLAG LEGEND: No. of containers..01 ThinPrep Vial Performed at: [address] [place] [address] 01 =G Camryn Samaniego IGP, rfx Aptima HPV ASCU Note . Glassworker: Jenise Byrne MD, Phone: [phone] <-Panic Low,>-Panic High,A-Abnormal,AA-Cri tical Abnormal NEGATIVE FOR INTRAEPITHELIAL LESION OR MALIGNANCY. occur. The Pap smear is a screening test designed to aid in the should not be used as the sole means of detecting cervical Performed at: [facility] uterine cervix. It is not a diagnostic procedure and cancer. Both false-positive and false-negative reports do Performed at: =[facility] This liquid based ThinPrep(R) pap test was screened with Satisfactory for evaluation. Endocervical and/or squamous metaplastic L-Low Normal,H-High Normal,LL-Alert Low,HH-Alert High Whitney Alvarez, Import Coordination And Production Head (ASCP) Performed at: cells (endocervical component) are present. Note: Note 02 [address] [place] [address] 02 [facility] Glassworker: Jenise Byrne MD, Phone: [phone] [address] [place], [place] [id number] . 02 Test Methodology: Note 02 TESTS RESULT FLAG UNITS REF RANGE LAB Performed by: 02 The HPV DNA reflex criteria were not met with this specimen Specimen adequacy: 02 FLAG LEGEND: Jenise Byrne MD, DIAGNOSIS: 02 detection of premalignant and malignant conditions of the the use of an image guided system. [address], [place] [id number] result therefore, no HPV testing was performed. Performing Lab: see note [facility] LB Box Test Reviewed date:01/07/2025 01:05:16 PM Interpretation: Performing Lab: Notes/Report: RON BOX [facility] , BOX Test Sent Out [place] BOX Test Reference Lab RON BOX Test Date Sent 01-05-25 Performing Lab: see note [facility] LB Urine Culture, Routine Reviewed date:01/07/2025 01:05:16 PM Interpretation: Performing Lab: Notes/Report: [facility] , Urine Culture, Routine See Below For Report Urine Culture, Routine Urine Culture, Routine Mixed urogenital tami Urine Culture, Routine Urine Culture, Routine 50,000-100,000 co lony forming units per mL Urine Culture, Routine Urine Culture, Routine Performed at: [facility] Urine Culture, Routine Urine Culture, Routine [address] [place] [id number] Urine Culture, Routine Urine Culture, Routine Glassworker: Riky Harris PhD, Phone: [phone] Urine Culture, Routine Performing Lab: see note SEE REPORT - Line Out Man Id information not found for OBX-specific record producer legend [facility] HBsAg Screen Reviewed date:01/07/2025 01:05:16 PM Interpretation: Performing Lab: Notes/Report: [facility] , HBsAg Screen Negative Negative Glassworker: Andrew Harris PhD, Phone: [phone] Performed at: [address] [id number] Performing Lab: see note [facility] LB HCV Antibody RFX to Quant PC R Reviewed date:01/07/2025 01:05:16 PM Interpretation: Performing Lab: Notes/Report: [facility] , HCV Ab Non Reactive Non Reactive Interpretation: Comment . suspected (which may be delayed in an immunocompromised Performed at: [address] [id number] Glassworker: Andrew Harris PhD, Phone: [phone] individual), or other evidence exists to indicate HCV Not infected with HCV unless early or acute infection is infection. Performing Lab: see note - [facility] LB Rapid Plasma Reagin, Quant Reviewed date:01/07/2025 01:05:16 PM Interpretation: Performing Lab: Notes/Report: [facility] , Rapid Plasma Reagin, Quant Non Reactive NonRea<1:1 titer treated for syphilis infection. To screen for syphilis Treponema pallidum (Syphilis) Screening [place] (782516) or Glassworker: Andrew Harris PhD, Phone: [phone] treponema-specific assay should be utilized, such as RPR and Confirmatory Treponema pallidum Antibodies (797597). Please Note: This test does not meet current guidelines for Rapid Plasma Reagin (RPR) Test With Reflex to Quantitative Performed at: [facility] infection, a reflex cascade that includes both RPR and a [address] [place] [phone] intended for following treatment response in patients being screening and diagnosis of syphilis. This test is Performing Lab: see note [facility] LB HIV Ab/p24 Ag with Reflex Reviewed date:01/07/2025 01:05:16 PM Interpretation: Performing Lab: Notes/Report: [facility] , HIV Ab/p24 Ag Screen Non Reactive Non Reactive Performed at: [facility] HIV-1/HIV-2 antibodies and HIV-1 p24 antigen were NOT Glassworker: Andrew Harris PhD, Phone: [phone] HIV Negative [address] [place] [phone] detected. There is no laboratory evidence of HIV infection. Performing Lab: see note [facility] LB Type and Screen Reviewed date:01/07/2025 01:05:16 PM Interpretation: Performing Lab: Notes/Report: [facility] , Blood Type A Positive Antibody Screen NEGATIVE RUBELLA AB IGG Reviewed date:01/07/2025 01:05:16 PM Interpretation: Performing Lab: Notes/Report: [facility] , Rubella Antibodies, IgG 1.57 Immune > 0.99 index Performed at: [facility] Immune >0.99 Equivocal 0.90 - 0.[address] [place] [phone] Non-immune <0.90 Glassworker: Andrew Harris PhD, Phone: [phone] Performing Lab: see note [facility] GLYCOHEMOGLOBIN A1C Reviewed date:01/07/2025 01:05:16 PM Interpretation: Performing Lab: Notes/Report: [facility] , Glycohemoglobin A1C 5.0 4.5-6.2 % > 7.0 ADA RECOMMENDED LIMIT 4.0 - 6.0 ADA THERAPEUTIC TARGET < 7.0 ACTION SUGGESTED Estimated Average Glucose 97 Performing Lab: see note ML - [facility] LB DRUG SCREEN RAPID (URINE) Reviewed date:01/07/2025 01:05:16 PM Interpretation: Performing Lab: Notes/Report: [facility] , Cannabinoid Screen Urine NEGATIVE NEGATIVE Phencyclidine [...] Performing Lab: see note ML - [facility] LB CBC AUTO DIFF Reviewed date:01/07/2025 01:05:16 PM Interpretation: Performing Lab: Notes/Report: [facility] , White Blood Count 9.2 4.0-11.0 10 [...] 3/uL Performing Lab: see note ML - [facility] PREG QUANT HCG Reviewed date:11/20/2024 01:38:35 PM Interpretation: Performing Lab: Notes/Report: [facility] , HCG Quantitative 6254 5-50 0.2-1 WEEK 10,000-100,000 2-3 MONTHS 500-10,000 3-4 WEEKS 100-5,000 2-3 WEEKS 15,000-200,000 6-8 WEEKS 10,000-100,000 5-6 WEEKS 50-500 1-2 WEEKS 1,000-50,000 4-5 WEEKS Performing Lab: see note ML - [facility] US OB transvaginal Reviewed date:08/10/2024 08:58:56 AM Interpretation: Performing Lab: Notes/Report: Source Facility: [place] [address] [place] [address] Ultrasound Report Signed Patient: VIMAL FUNES MR#: [id number] : 2000 Acct:[id number] Age/Sex: 24 / F ADM Date: 08/10/24 Loc: SURGOUT Attending Dr: Mackenzie Rodriguez D.O. Ordering Physician: Mackenzie Rodriguez D.O. Date of Service: 08/10/24 Procedure(s): US OB transvaginal Accession Number(s): [id number] cc: JENNIFER SEE ; Mackenzie Rodriguez D.O. [place] [id number] Patient Name: VIMAL FUNES MRN: [id number] date: 2000 Sex: F [facility] Accession/Order Number: [id number] Exam Date: 08/10/2024 08:10 Report Date: 08/10/2024 [...] M.D. 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 Ordering Physician: Mackenzie Rodriguez D.O. Date of Service: 08/10/24 Procedure(s): US OB transvaginal Accession Number(s): [id number] cc: JENNIFER SEE ; Mackenzie Rodriguez D.O. [place] [id number] Patient Name: VIMAL FUNES MRN: [id number] date: 2000 Sex: F [facility] Accession/Order Number: [id number] Exam Date: 08:10 Report Date: 08/10/2024 08:44 [...] Herrera M.D. Signed By: 08/10/2447 DD/ TD/TT: [employer] Power Plant Engineer: PREG QUANT HCG Reviewed date:08/10/2024 08:58:56 AM Interpretation: Performing Lab: Notes/Report: [facility] , HCG Quantitative 240 50-500 1-2 WEEKS 1,000-50,000 4-5 WEEKS 15,000-200,000 6-8 WEEKS 10,000-100,000 2-3 MONTHS 100-5,000 2-3 WEEKS 500-10,000 3-4 WEEKS 5-50 0.2-1 WEEK 10,000-100,000 5-6 WEEKS Performing Lab: see note ML - [facility] LB CBC AUTO DIFF Reviewed date:08/10/2024 08:58:56 AM Interpretation: Performing Lab: Notes/Report: [facility] , White Blood Count 8.9 4.0-11.0 10 [...] see note ML - [facility] US OB transvaginal Reviewed date:08/03/2024 08:30:13 AM Interpretation: Performing Lab: Notes/Report: Source Facility: [facility]-[address] [place] [address] [place] [address] Ultrasound Report Signed Patient: VIMAL FUNES MR#: [id number] : 2000 Acct:[id number] Age/Sex: 24 / F ADM Date: 08/02/24 Loc: ER Attending Dr: Ordering Physician: Kishan Motta Date of Service: 08/02/24 Procedure(s): US OB transvaginal Accession Number(s): [id number] cc: JENNIFER SEE ; Kishan Motta [place] [address] Patient Name: VIMAL FUNES MRN: [id number] date: 2000 Sex: F Assigned Patient Location: ER Current Patient Location: ER Accession/Order Number: [id number] Exam Date: 08/02/2024 19:17 Report Date: 08/02/2024 [...] M.D. Signed By: 08/02/242126 DD/ 23 TD/TT: Carbon Capture Power Plant Engineer: [place] [address] Ultrasound Report Signed Patient: VIMAL FUNES MR#: [id number] : 2000 Acct:[id number] Age/Sex: 24 / F ADM Date: 08/02/24 Loc: ER Attending Dr: Ordering Physician: Kishan Motta Date of Service: 08/02/24 Procedure(s): US OB transvaginal Accession Number(s): [id number] cc: MAYI,JENNIFER ; Kishan Marker The [address] [address] Patient Name: VIMAL FUNES MRN: [id number] date: 2000 Sex: F Assigned Patient Location: ER Current Patient Location: ER Accession/Order Number: [id number] Exam Date: 19:17 Report Date: 08/02/2024 21:24 [...] M.D. Signed By: 08/02/242126 DD/ 23 TD/TT: Carbon Capture Power Plant Engineer: PROF [place](COMP METB) Reviewed date:08/03/2024 08:30:13 AM Interpretation: Performing Lab: Notes/Report: The [facility] , Sodium 140 136-145 mmol/L Potassium 3.4 [...] 0.9 Performing Lab: see note ML - [facility] PREG QUANT HCG Reviewed date:08/03/2024 08:30:13 AM Interpretation: Performing Lab: Notes/Report: [facility] , HCG Quantitative 1656 15,000-200,000 6-8 WEEKS 10,000-100,000 2-3 MONTHS 10,000-100,000 5-6 WEEKS 1,000-50,000 4-5 WEEKS 100-5,000 2-3 WEEKS 50-500 1-2 WEEKS 5-50 0.2-1 WEEK 500-10,000 3-4 WEEKS Performing Lab: see note ML - [facility] CBC AUTO DIFF Reviewed date:08/03/2024 08:30:13 AM Interpretation: Performing Lab: Notes/Report: The [facility] , White Blood Count 11.1 4.0-11.0 10 [...] 10 3/uL Performing Lab: see note - [facility] Box Test Reviewed date:07/23/2024 08:22:00 AM Interpretation: Performing Lab: Notes/Report: [place] [facility] , BOX Test Sent Out [place] [facility] Test Reference Lab [place] [facility] Test Date Sent 07/21/24 Performing Lab: see note [facility] Urine Culture, Routine Reviewed date:07/23/2024 08:22:00 AM Interpretation: Performing Lab: Notes/Report: [facility] , Urine Culture, Routine See Below For Report Urine Culture, Routine Urine Culture, Routine Mixed urogenital tami Urine Culture, Routine Urine Culture, Routine 10,000-25,000 col nan forming units per mL Urine Culture, Routine Urine Culture, Routine Performed at: [facility] Urine Culture, Routine Urine Culture, Routine [address] [place] [phone] Urine Culture, Routine Urine Culture, Routine Glassworker: Riky Harris PhD, Phone: [phone] Urine Culture, Routine Performing Lab: see note SEE REPORT - Line Out Man Id information not found for OBX-specific record producer legend [facility] HBsAg Screen Reviewed date:07/23/2024 08:22:00 AM Interpretation: Performing Lab: Notes/Report: [facility] , HBsAg Screen Negative Negative Glassworker: Andrew Harris PhD, Phone: [phone] [address] [place], [place] [phone] Performed at: [facility] Performing Lab: see note [facility] HCV Antibody RFX to Quant PC R Reviewed date:07/23/2024 08:22:00 AM Interpretation: Performing Lab: Notes/Report: [facility] , HCV Ab Non Reactive Non Reactive Interpretation: Comment . individual), or other evidence exists to indicate HCV infection. suspected (which may be delayed in an immunocompromised Not infected with HCV unless early or acute infection is Performing Lab: see note - [facility] Rapid Plasma Reagin, Quant Reviewed date:07/23/2024 08:22:00 AM Interpretation: Performing Lab: Notes/Report: [facility] , Rapid Plasma Reagin, Quant Non Reactive NonRea<1:1 titer treponema-specific assay should be utilized, such as Performed at: [facility] infection, a reflex cascade that includes both RPR and a screening and diagnosis of syphilis. This test is Treponema pallidum (Syphilis) Screening [place] (564276) or Glassworker: Andrew Harris PhD, Phone: [phone] Rapid Plasma Reagin (RPR) Test With Reflex to Quantitative Please Note: This test does not meet current guidelines for (030761). RPR and Confirmatory Treponema pallidum Antibodies [address] [place] [address] treated for syphilis infection. To screen for syphilis intended for following treatment response in patients being Performing Lab: see note [facility] HIV Ab/p24 Ag with Reflex Reviewed date:07/23/2024 08:22:00 AM Interpretation: Performing Lab: Notes/Report: [facility] , HIV Ab/p24 Ag Screen Non Reactive Non Reactive detected. There is no laboratory evidence of HIV infection. Glassworker: Andrew Harris PhD, Phone: [phone] HIV-1/HIV-2 antibodies and HIV-1 p24 antigen were NOT HIV Negative Performed at: [facility] [address] [place] [phone] Performing Lab: see note [facility] LB Type and Screen Reviewed date:07/23/2024 08:22:00 AM Interpretation: Performing Lab: Notes/Report: [facility] , Blood Type A Positive Antibody Screen NEGATIVE RUBELLA AB IGG Reviewed date:07/23/2024 08:22:00 AM Interpretation: Performing Lab: Notes/Report: [facility] , Rubella Antibodies, IgG 1.57 Immune > 0.99 index Non-immune <0.90 Equivocal 0.90 - 0.99 Performed at: [facility] Immune >0.[address] [place] [phone] Glassworker: Andrew Harris PhD, Phone: [phone] Performing Lab: see note LC - [facility] LB GLYCOHEMOGLOBIN A1C Reviewed date:07/23/2024 08:22:00 AM Interpretation: Performing Lab: Notes/Report: [facility] , Glycohemoglobin A1C 4.9 4.5-6.2 % > 7.0 ACTION SUGGESTED ADA RECOMMENDED LIMIT 4.0 - 6.0 ADA THERAPEUTIC TARGET < 7.0 Estimated Average Glucose 94 Performing Lab: see note ML - [facility] DRUG SCREEN RAPID (URINE) Reviewed date:07/23/2024 08:22:00 AM Interpretation: Performing Lab: Notes/Report: REEFLEX IF POSITIVE [facility] , Cannabinoid Screen Urine NEGATIVE NEGATIVE Phencyclidine [...] Performing Lab: see note ML - [facility] LB CBC AUTO DIFF Reviewed date:07/23/2024 08:22:00 AM Interpretation: Performing Lab: Notes/Report: [facility] , White Blood Count 10.6 4.0-11.0 10 [...] Performing Lab: see note ML - [facility] LB [facility] URINE - IN OFFI CE Reviewed date:07/23/2024 08:22:00 AM Interpretation: Performing Lab: Notes/Report: PREG ([facility]), URINE - IN OFFICE + NEG - NEG Control Present + US OB BPP w non-stress Reviewed date:05/13/2025 12:03:41 PM Interpretation: Performing Lab: Notes/Report: Source Facility: [facility]-[address] [place] [address] [place] [address] Ultrasound Report Signed Patient: VIMAL FUNES MR#: [id number] : 2000 Acct:[id number] Age/Sex: 25 / F ADM Date: 05/11/25 Loc: [facility] 253-[address]: Rossana Leach Ordering Physician: Rossana Leach Date of Service: 05/11/25 Procedure(s): US OB BPP w non-stress Accession Number(s): [id number] cc: JENNIFER Watkins [address] [address] Patient Name: VIMAL FUNES MRN: [id number] date: 2000 Sex: F Assigned Patient Location: [facility] Current Patient Location: [facility] Accession/Order Number: [id number] Exam Date: 05/11/2025 12:01 Report Date: 05/11/2025 12:02 At the request of: ROSSANA LEACH Procedure: US OB BPP w non-stress Biophysical profile. Reason for exam: Gestational diabetes COMPARISON: 05/04/2025 TECHNIQUE: Transabdominal imaging of the gravid uterus was obtained. FINDINGS: The health technician hearing reports a BPP of 8 out of 8. DANYA is normal at 11.9 cm. heart rate 138 bpm. US/US OB BPP w non-stress IMPRESSION: BPP 8 out of 8. Impression dictated by: Bulmaro Arias Jr., D.O. 05/11/2025 12:02 PM Dictation Location: [place] [address] Electronically authenticated by: [id number] Y Date: 05/11/2025 12:02 Dictated By: Bulmaro Arias M.D. Signed By: 05/11/25 1204 DD/ 1202 TD/TT: Carbon Capture Power Plant Engineer: [place] [address] Ultrasound Report Signed Patient: VIMAL FUNES MR#: [id number] : 2000 Acct:[id number] Age/Sex: 25 / F ADM Date: 05/11/25 Loc: [facility] 253-[address]: Rossana Leach Ordering Physician: Rossaan Leach Date of Service: 05/11/25 Procedure(s): US OB BPP w non-stress Accession Number(s): [id number] cc: Rossana SEEJENNIFER [address] [address] Patient Name: VIMAL FUNES MRN: [id number] date: 2000 Sex: F Assigned Patient Location: [facility] Current Patient Location: [facility] Accession/Order Number: [id number] Exam Date: 05/11/2025 12:01 Report Date: 05/11/2025 12:02 At the request of: ROSSANA LEACH Procedure: US OB fet al BPP w non-stress Biophysical profile. Reason for exam: Gestational diabetes COMPARISON: 05/04/2025 TECHNIQUE: Transabdominal imaging of the gravid uterus was obtained. FINDINGS: The health technician hearing reports a BPP of 8 out of 8. DANYA is normal at 11.9 cm. heart rate 138 bpm. US/US OB BPP w non-stress IMPRESSION: BPP 8 ou t of 8. Impression dictated by: Bulmaro Arias Jr., D.OGene 05/11/2025 12:02 PM Dictation Location: [facility] Electronically authenticated by: [id number] Y Date: 05/11/2025 12:02 Dictated By: Bulmaro Arias M.D. Signed By: 05/11/25 1204 DD/ 1202 TD/TT: Carbon Capture Power Plant Engineer: Glucose Tolerance 3 Hour Reviewed date:05/06/2025 10:03:33 AM Interpretation: Performing Lab: Notes/Report: [facility] , Glucose Tolerance 3 Hour GLU FAST 108H (<95) Col: 05/04/25 0723 GLU 2HR 186H (<155) Col: 05/04/25 0927 GLU 1HR 234H (<180) Col: 05/04/25 0826 GLU 3HR 133 (<140) Col: 05/04/25 1028 Performing Lab: see note - [facility] Glucose 1 Hour Reviewed date:04/29/2025 09:37:12 AM Interpretation: Performing Lab: Notes/Report: [facility] , Glucose 1 Hour 171 <130 mg/dL Performing Lab: see note - [facility] LB Reason For Referral No Information Medications [...] 06/05/2024 Encounters Encounter Location Date Provider Diagnosis [facility] [address] [place] [address] 06/05/2024 Jennifer See Z33.1 and Wellness examination [...] ACCESS PPO PLUS LOCAL PLAN [address] [place] [address] [phone] [id number] Vimal Funes Self - patient is the insured [employer] [place] [employer] [address] [place] [address] [id number] Vimal Funes Self - patient is the insured Medical (General) History Medical History History ICD Code lead poisoning Surgical History Surgery Date(Month/Year) ear tubes
--- OUTSIDE RECORDS SUMMARY | 2025-05-18 11:13 | XMS_ITS | Clinical Summary ---
Author Organization [employer] [facility] tem Address [id number] [address] [place] [address] Care Team Providers Care Director Of Catering Name Role Phone Unavailable Primary Care Provider [...] Encounters Date Type Department Care Team Description 05/13/2025 1:30 PM EDT Support Visit Maternal- Medicine at [facility] [address] [place] [address] Marjorie Rico, RN Xenia Rayo RD Gestational diabetes mellitus (GDM) in third trimester, gestational diabetes method of control unspecified 05/13/2025 Travel 05/10/2025 Abstract Maternal- Medicine at [facility] [address] [place] [address] External, Scanning Provider from Last 3 Months [...] - - Body Mass Index - - Plan of Treatment Upcoming Encounters Date Type Department Care Team (Late st Contact Info) Description 06/04/2025 1:00 PM EDT Appointment [facility] - Ultrasound [address] [place] [address] Jose Rodriguez, DO [address] [facility] [address] [place] [address] Health Maintenance Due Date Last Done Comments Depression Screening 2013 Tobacco Screening 2013 Adult BMI Screening 2019 DTaP,Tdap and Td Vaccines (7 - Td or Tdap) 05/01/2024 05/01/2014, 06/01/2006, 05/19/2005, Additional history exists Influenza Vaccine 05/27/2025 08/28/2003, 07/26/2003 Pap Smear 02/21/2028 02/20/2025 Medical Devices Not on file Procedures Procedure Name Priority Date/Time Associated Diagnosis Comments GLUCOSE RANDOM OR FASTING Routine 05/13/2025 Gestational diabetes mellitus (GDM) in third trimester, gestational diabetes method of control unspecified GLUCOSE TOLERANCE, 3 HOURS Routine 05/04/2025 GLUCOSE TOLERANCE, FASTING Routine 05/04/2025 GLUCOSE TOLERANCE, 1 HOUR Routine 05/04/2025 SECOND HOUR GLUCOSE TOLERANCE 100 GM LOAD Routine 05/04/2025 GLU 1H POST 50G LOAD Routine 04/27/2025 from Last 3 Months Results * Glucose random or fasting- POCT (05/13/2025) External Glucose Fasting Or Random (Fbs) 80 MANUALLY TRANSCRIBED RESULTS Blood Venous blood / Unknown 05/13/2025 us Wendy Miranda MD LAB BLOOD ORDERABLES Final Resul t Performing Organization Address City/[facility] Co de Phone Number MANUALLY TRANSCRIBED RESULTS * 2nd hr Glucose Tolerance 100 gm load (05/04/2025) Glucose Tolerance Test 2 Hour 186 MANUALLY TRANSCRIBED RESULTS Blood Venous blood / Unknown us Not In System Ref Prov LAB BLOOD ORDERABLES Kayli l Result Performing Organization Address [facility] de Phone Number MANUALLY TRANSCRIBED RESULTS * Glucose tolerance, 1 hour (05/04/2025) Glucose Tolerance Test 1 Hour 234 MANUALLY TRANSCRIBED RESULTS Blood Venous blood / Unknown us Not In System Ref Prov LAB BLOOD ORDERABLES Kayli l Result Performing Organization Address [facility] Co de Phone Number MANUALLY TRANSCRIBED RESULTS * Glucose tolerance, 3 hours (05/04/2025) Glucose Tolerance Test 3 Hour 133 MANUALLY TRANSCRIBED RESULTS Blood Venous blood / Unknown us Not In System Ref Prov LAB BLOOD ORDERABLES Kayli l Result Performing Organization Address [facility] de Phone Number MANUALLY TRANSCRIBED RESULTS * Glucose, tolerance fasting (05/04/2025) Glucose Tolerance Test Fasting 108 MANUALLY TRANSCRIBED RESULTS Blood Venous blood / Unknown us Not In System Ref Prov LAB BLOOD ORDERABLES Kayli l Result MANUALLY TRANSCRIBED RESULTS * Glucose 1h post 50g load (04/27/2025) Glucose, 1 hr PP 50GM dose 171 MANUALLY TRANSCRIBED RESULTS Blood Venous blood / Unknown us Not In System Ref Prov LAB BLOOD ORDERABLES Kayli l Result MANUALLY TRANSCRIBED RESULTS from Last 3 Months Insurance [facility] [employer] [employer]
--- OUTSIDE RECORDS SUMMARY | 2025-05-18 11:13 | XMS_ITS | Encounter Summary ---
Author Organization [facility] Address [address] [place] [address] Care Team Providers Care Senior Marketing Data Analyst Name Role Phone Unallocated, Noms Provider Primary Care Provi krissy Encounter Details Date Type Department Care Team (Late st Contact Info) Description 03/11/2025 Results Follow-Up [facility] [place] [facility] [address] [facility] [address] [place] [place] [address] Glenna Butler LPN [address] [place] [address] US OB ANATOMY Social History [...] EDT Routine [facility] [place] [facility] [address] [facility] [phone] Jose Rodriguez DO [address] [place] [address] documented as of this encounter Visit Diagnoses Not on filedocumented in this encounter Care Teams Senior Marketing Data Analyst Relationship Specialty Start Date End Date Unallocated, Noms Gilda, [address] [place] [address] PCP - General Family Medicine 08/03/24 documented as of this encounter
--- OUTSIDE RECORDS SUMMARY | 2025-05-18 11:14 | XMS_ITS | Encounter Summary ---
Author Organization [facility] Address [address] [place] [address] Care Team Providers Care Greige Goods Inspector Name Role Phone Unallocated, Noms Provider Primary Care Provi krissy Encounter Details Date Type Department Care Team (Late st Contact Info) Description 03/06/2025 Orders Only ARJUN PANG [address] [place] [address] Kavitha Almanza MA [...] 2:40 PM EDT Routine [facility] P[facility] [address] [place] [address] Jose Rodriguez DO [address] [place], [facility] documented as of this encounter Procedures Procedure Name Priority Date/Time Associated Diagnosis Comments PAP SMEAR Routine 02/20/2025 12:00 AM EDT documented in this encounter Results * Pap Smear (02/20/2025 12:00 AM EDT) Swab Cervical swab / Unknown us Rossana [facility] CYTOLOGY ORDERABLES Final Re sult EXTERNAL LAB documented in this encounter Visit Diagnoses Not on filedocumented in this encounter Care Teams Greige Goods Inspector Relationship Specialty Start Date End Date Unallocated, Noms Provider, [address] [place] [address] PCP - General Family Medicine 08/03/24 documented as of this encounter
--- OUTSIDE RECORDS SUMMARY | 2025-05-18 11:14 | XMS_ITS | Encounter Summary ---
Author Organization [facility] Address [address] [place] [address] Care Team Providers Care Filter Press Tender Name Role Phone Unallocated, Noms Provider Primary Care Provi krissy Encounter Details Date Type Department Care Team (Late st Contact Info) Description 05/11/2025 Clinisync Result Encounter [facility] External Department Unsolicited Collin Leach PA [address] [place], [facility] Social History Tobacco Use Types Packs/Day [...] PM EDT Routine [facility] [address] [facility] [place] [phone] Jose Rodriguez DO [address] [facility] [address] [place], [facility] documented as of this encounter Procedures Procedure Name Priority Date/Time Associated Diagnosis Comments US OB BPP W NON-STRESS 05/11/2025 12:02 PM EDT documented in this encounter Results * US OB BPP W NON-STRESS (05/11/2025 12:02 PM EDT) Anatomical Region Laterality Modality Other 05/11/2025 12:0 2 PM EDT Narrative 05/11/2025 12:04 [place] [address] Ultrasound Report Signed Patient: VIMAL PIZANO MR#: [id number] : 2000 Acct:[id number] Age/Sex: 25 / F ADM Date: 05/11/25 Loc: [facility] 253-[address]: Collin Leach Ordering Physician: Collin Leach Date of Service: 05/11/25 Procedure(s): US OB BPP w non-stress Accession Number(s): [id number] cc: Collin Leach; LUIS SEE [address] [address] Patient Name: VIMAL PIZANO MRN: [id number] date: 2000 Sex: F Assigned Patient Location: [facility] Current Patient Location: [facility] Accession/Order Number: [id number] Exam Date: 05/11/2025 12:01 Report Date: 05/11/2025 12:02 At the request of: COLLIN LEACH Procedure: US OB BPP w non-stress Biophysical profile. Reason for exam: Gestational diabetes COMPARISON: 05/04/2025 TECHNIQUE: Transabdominal imaging of the gravid uterus was obtained. FINDINGS: The postal delivery officer reports a BPP of 8 out of 8. DANYA is normal at 11.9 cm. heart rate 138 bpm. US/US OB BPP w non-stress IMPRESSION: BPP 8 out of 8. Impression dictated by: Bulmaro Arias Jr., D.O. 05/11/2025 12:02 PM Dictation Location: [facility] Electronically authenticated by: [id number] Y Date: 05/11/2025 12:02 Dictated By: Bulmaro Arias M.D. Signed By: 05/11/25 1204 DD/ 120 TD/TT: Aquaculture And Fisheries Professor: Procedure Note Radiology, Radiologist, - 05/11/2025 [place] [address] Ultrasound Report Signed Patient: VIMAL PIZANO MMR#: [id number] : 2000Acct:[id number] Age/Sex: 25 / FADM Date: 05/11/25 Loc: [facility] 253-[address]: Collin Leach Ordering Physician: Collin Leach Date of Service: 05/11/25 Procedure(s): US OB BPP w non-stress Accession Number(s): [id number] cc: Collin Leach; LUIS SEE [place] [address] Patient Name: VIMAL PIZANO MRN: [id number] date: 2000 Sex: F Assigned Patient Location: [facility] Current Patient Location: [facility] Accession/Order Number: [id number] Exam Date: 05/11/2025 12:01 Report Date: 05/11/2025 12:02 At the request of: COLLIN LEACH Procedure: US OB BPP w non-stress Biophysical profile. Reason for exam: Gestational diabetes COMPARISON: 05/04/2025 TECHNIQUE: Transabdominal imaging of the gravid uterus was obtained. FINDINGS: The postal delivery officer reports a BPP of 8 out of 8. DANYA is normal at11.9 cm. heart rate 138 bpm. US/US OB BPP w non-stress IMPRESSION: BPP 8 out of 8. Impression dictated by: Bulmaro Arias Jr., D.O. 05/11/2025 12:02 PM Dictation Location: [facility] Electronically authenticated by: [id number] Y Date: 2:02 Dictated By: Bulmaro Arias M.D. Signed By:05/11/25 1204 DD/ 1202 TD/TT: Aquaculture And Fisheries Professor: Collin [facility] Final Result documented in this encounter Visit Diagnoses Not on filedocumented in this encounter Care Teams Filter Press Tender Relationship Specialty Start Date End Date Unallocated, Noms Provider, [address] [place] [address] PCP - General Family Medicine 08/03/24 documented as of this encounter
--- OUTSIDE RECORDS SUMMARY | 2025-05-18 11:14 | XMS_ITS | Clinical Summary ---
Author Organization [facility] Address [address] [place] [address] Care Team Providers Care Prefinish Operator Name Role Phone Unallocated, Noms Provider [...] antepartum, gestational diabetes method of control unspecified ([facility]),Elevat ed glucose tolerance test Apply 1 Pad topically Daily Use four times daily to check FSBS. 150 each 3 5 Active Glucose Blood (Blood Glucose Test) stripIndications :Gestational diabetes mellitus (GDM), antepartum, gestational diabetes method of control unspecified ([facility]),Elevat ed glucose tolerance test 1 strip by In Vitro route Daily Use in the morning prior to breakfast, 1 hour after each meal for a total of 4times daily. 150 strip 3 5 06/07/20 25 Active Blood Glucose Monitoring Suppl (D-Obsorb Glucometer) w/Device kitIndications:G estational diabetes mellitus (GDM), antepartum, gestational diabetes method of control unspecified ([facility]),Elevat ed glucose tolerance test 1 kit Daily [...] Encounters Date Type Department Care Team Description 05/14/2025 2:40 PM [place] [address] Mackenzie Rodriguez DO Third trimester ([facility]); 30 weeks gestation of ([facility]); induced hypertension, antepartum ([facility]) 05/14/2025 [place] [address] Mackenzie Rodriguez DO 05/11/2025 Clinisync Result Encounter NOMS External Department Unsolicited Rossana Leach PA 05/08/2025 [place] [address] Mackenzie Rodriguez, DO 05/07/2025 Results [place] [address] Glenna Butler, ASSURANCE SOURCING MANAGER ALL CBC WITH AUTO DIFF, SRMCOH PROTHROMBIN TIME INR W/O COUM, [facility] APTT, Additional followed-up results: 6 05/06/2025 Clinisync Result Encounter NOMS External Department Unsolicited Rossana Leach PA 05/04/2025 Clinisync Result Encounter NOMS External Department Unsolicited Rossana Leach PA 05/04/2025 Clinisync Result Encounter NOMS External Department Unsolicited Rossana Leach PA 05/04/2025 [place] [address] Mackenzie Rodriguez, DO 05/04/2025 Clinisync Result Encounter NOMS External Department Unsolicited Rossana Leach PA 04/30/2025 10:50 AM [place] [phone] Rossana Leach PA BP check; -induced hypertension in third trimester ([facility]); Gestational diabetes mellitus (GDM) in third trimester, gestational diabetes method of control unspecified ([facility]) 04/30/2025 [place] [address] Rossana Leach PA 04/29/2025 [place] [phone] Kavitha Almanza MA 04/27/2025 Clinisync Result Encounter NOMS External Department Unsolicited Rossana Leach PA 04/25/2025 2:50 PM EDT Office Visit [facility] [address] [place] [address] Rossana Leach PA Second trimester ([facility]); 27 weeks gestation of ([facility]); induced hypertension, antepartum ([facility]) 04/25/2025 Bamboo flowsheet [facility] [address] [facility] [place] [address] Rossana Leach PA 04/11/2025 3:30 PM EDT Routine [facility] [address] [place] [address] Rossana Leach PA Second trimester ([facility]); 25 weeks gestation of ([facility]); Diabetes mellitus screening; Elevated BP without diagnosis of hypertension 04/11/2025 Bamboo flowsheet [facility] [address] [place] [address] Rossana Leach PA 03/28/2025 Abstract [facility] [address] [place] [address] Mackenzie Rodriguez DO 03/25/2025 Clinisync Result Encounter NOMS External Department Unsolicited Mackenzie Rodriguez, 03/14/2025 10:50 AM EDT Routine [facility] [address] [place] [address] Mackenzie Rodriguez DO Second trimester ([facility]); 21 weeks gestation of ([facility]) 03/14/2025 Bamboo flowsheet [facility] [address] [place] [address] Mackenzie Rodriguez DO 03/11/2025 Results Follow-Up [facility] [address] [place] [address] Glenna Butler LPN OB ANATOMY 03/11/2025 Telephone [facility] [address] [place] [phone] Meghanalacho GlennaMARILU 03/08/2025 Clinisync Result Encounter NOMS External Department Unsolicited Mackenzie Rodriguez, DO 03/08/2025 Clinisync Result Encounter NOMS External Department Unsolicited Mackenzie Rodriguez, DO 03/06/2025 [place] [phone] Kavitha Almanza MA 02/20/2025 3:40 PM [place] [phone] Rossana Leach PA Screening, , for anatomic survey ([facility]); Well woman exam with routine gynecological exam; STD exposure; Second trimester ([facility]); 18 weeks gestation of ([facility]); Urinary frequency 02/20/2025 Clinisync Result Encounter NOMS External Department Unsolicited Rossana Leach PA 02/20/2025 External Result Encounter NOMS External Department Unsolicited Rossana Leach PA 02/20/2025 Bamboo flowsheet [facility] [place] [phone] Rossana Leahc PA from Last 3 Months Family History [...] (177 lb) 05/14/2025 2:59 PM EDT Height 160 cm (5' 3 ) 01/06/2023 12:00 PM EDT Body Mass Index 31.35 01/06/2023 12:00 PM EDT Plan of Treatment Upcoming Encounters Date Type Department Care Team (Late st Contact Info) Description 05/22/2025 2:40 PM EDT Routine [facility] [address] [place] [phone] Mackenzie Rodriguez, [address] [place] [address] Health Maintenance Due Date Last Done Comments Influenza Vaccine (#1) 2025 08/28/2003, 2002 Procedures Procedure Name Priority Date/Time Associated Diagnosis Comments US OB BPP W NON-STRESS 05/11/2025 12:02 PM EDT [facility] TOTAL PROTEIN 24 HOUR URINE Routine [...] Routine 04/25/2025 3:12 PM EDT Second trimester ([facility]) POCT URINALYSIS DIPSTICK Routine 04/11/2025 3:44 PM EDT Second trimester ([facility]) US OB INCOMPLETE ANATOMY 03/25/2025 8:25 AM EDT POCT URINALYSIS DIPSTICK Routine 03/14/2025 11:39 AM EDT Second trimester ([facility]) US OB CERVICAL LENGTH 03/08/2025 8:36 PM EDT US OB ANATOMY 03/08/2025 8:36 PM EDT RECURRENT VAGINITIS (HTRX) Routine 02/20/2025 4:33 PM EDT URINARY TRACT INFECTION (HTRX) Routine 02/20/2025 4:30 PM EDT POCT URINALYSIS DIPSTICK Routine 02/20/2025 4:18 PM EDT 18 weeks gestation of ([facility]) IGP,APTIMA HPV,AGE GDLN Routine 02/20/2025 3:50 PM EDT PAP SMEAR Routine 02/20/2025 12:00 AM EDT from Last 3 Months Results * US OB BPP W NON-STRESS (05/11/2025 12:02 PM EDT) Only the most recent of2 resultswithin the time period is included. Anatomical Region Laterality Modality Other 05/11/2025 12:0 2 PM EDT Narrative 05/11/2025 12:04 [place] [address] Ultrasound Report Signed Patient: VIMAL FUNES MR#: [id number] : 2000 Acct:[id number] Age/Sex: 25 / F ADM Date: 05/11/25 Loc: [facility] 253-[address]: Rossana Leach Ordering Physician: Rossana Leach Date of Service: 05/11/25 Procedure(s): US OB BPP w non-stress Accession Number(s): [id number] cc: Rossana Leach; LUIS SEE [address] [address] Patient Name: VIMAL FUNES MRN: [id number] date: 2000 Sex: F Assigned Patient Location: [facility] Current Patient Location: [facility] Accession/Order Number: [id number] Exam Date: 05/11/2025 12:01 Report Date: 05/11/2025 12:02 At the request of: ROSSANA LEACH Procedure: US OB BPP w non-stress Biophysical profile. Reason for exam: Gestational diabetes COMPARISON: 05/04/2025 TECHNIQUE: Transabdominal imaging of the gravid uterus was obtained. FINDINGS: The school lunch monitor reports a BPP of 8 out of 8. DANYA is normal at 11.9 cm. heart rate 138 bpm. US/US OB BPP w non-stress IMPRESSION: BPP 8 out of 8. Impression dictated by: Bulmaro Arias Jr., D.O. 05/11/2025 12:02 PM Dictation Location: [facility] Electronically authenticated by: [id number] Y Date: 05/11/2025 12:02 Dictated By: Bulmaro Arias M.D. Signed By: 05/11/25 1204 DD/ 1202 TD/TT: Injection Molding Engineer: Procedure Note Radiology, Radiologist, MD - 05/11/2025 [place] [address] Ultrasound Report Signed Patient: VIMAL FUNES MMR#: [id number] : 2000Acct:[id number] Age/Sex: 25 / FADM Date: 05/11/25 Loc: [facility] 253-[address]: Rossana Leach Ordering Physician: Rossana Leach Date of Service: 05/11/25 Procedure(s): US OB BPP w non-stress Accession Number(s): [id number] cc: Rossana Leach; LUIS SEE [facility] [place] [id number] Patient Name: VIMAL FUNES MRN: [id number] date: 2000 Sex: F Assigned Patient Location: [facility] Current Patient Location: [facility] Accession/Order Number: [id number] Exam Date: 05/11/2025 12:01 Report Date: 05/11/2025 12:02 At the request of: ROSSANA LEACH Procedure: US OB BPP w non-stress Biophysical profile. Reason for exam: Gestational diabetes COMPARISON: 05/04/2025 TECHNIQUE: Transabdominal imaging of the gravid uterus was obtained. FINDINGS: The school lunch monitor reports a BPP of 8 out of 8. DANYA is normal at11.9 cm. heart rate 138 bpm. US/US OB BPP w non-stress IMPRESSION: BPP 8 out of 8. Impression dictated by: Bulmaro Arias Jr., D.O. 05/11/2025 12:02 PM Dictation Location: [facility] Electronically authenticated by: [id number] Y Date: 2:02 Dictated By: Bulmaro Arias M.D. Signed By:05/11/25 1204 DD/ 120 TD/TT: Injection Molding Engineer: us Rossana ORR IMAGING Final Result * TBH TOTAL PROTEIN 24 HOUR URINE (05/06/2025 7:00 AM EDT) TOTAL PROTEIN URINE RANDOM <6.0 <=11.9 mg/dL TB[facility] TOTAL VOLUME 24 HOUR URINE 3,700 mL/24hr TB[facility] 05/06/2025 7:00 AM EDT 05/06/2025 4:47 PM EDT Narrative CLINISYNC - 05/06/2025 5:50 PM EDT us Rossana BISWAS CLINALICE Final Result [facility] * US OB GROWTH (05/04/2025 12:08 PM EDT) Anatomical Region Laterality Modality Other 05/04/2025 12:0 8 PM EDT Narrative 05/04/2025 12:11 [place] [address] Ultrasound Report Signed Patient: VIMAL FUNES MR#: [id number] : 2000 Acct:[id number] Age/Sex: 25 / F ADM Date: 05/04/25 Loc: [facility] 250-[address]: Rossana Leach Ordering Physician: Rossana Leach Date of Service: 05/04/25 Procedure(s): US OB growth Accession Number(s): [id number] cc: Rossana Leach; LUIS SEE [place] [id number] Patient Name: VIMAL FUNES MRN: [id number] date: 2000 Sex: F Assigned Patient Location: [facility] Current Patient Location: [facility] Accession/Order Number: [id number] Exam Date: 05/04/2025 12:06 Report Date: 05/04/2025 [...] weight. Impression dictated by: Bulmaro Arias Jr., D.OGene 05/04/2025 12:08 PM Dictation Location[facility] Electronically authenticated by: [id number] Y Date: 05/04/2025 12:08 Dictated By: Bulmaro Arias M.D. Signed By: 05/04/25 1211 DD/ 1208 TD/TT: Injection Molding Engineer: Procedure Note Radiology, Radiologist, MD - 05/04/2025 [place] [address] Ultrasound Report Signed Patient: VIMAL FUNES MMR#: [id number] : 2000Acct:[id number] Age/Sex: 25 / FADM Date: 05/04/25 Loc: [place] [address]-[address]: Rossana Leach Ordering Physician: Rossana Leach Date of Service: 05/04/25 Procedure(s): US OB growth Accession Number(s): [id number] cc: Rossana Leach; LUIS ESE [facility] [place] [id number] Patient Name: VIMAL FUNES MRN: [id number] date: 2000 Sex: F Assigned Patient Location: [facility] Current Patient Location: [facility] Accession/Order Number: [id number] Exam Date: 05/04/2025 12:06 Report Date: 05/04/2025 [...] weight. Impression dictated by: Bulmaro Arias Jr., DDarline 05/04/2025 12:08 PM Dictation Location: [facility] Electronically authenticated by: [id number] Y Date: 2:08 Dictated By: Bulmaro Arias M.D. Signed By:05/04/25 1211 DD/ 1208 TD/TT: Injection Molding Engineer: Rossana ORR IMAGING Final Result * (ABNORMAL) [facility] CREATININE (05/04/2025 7:23 AM EDT) Pathologist [facility] CREATININE 0.37(L) 0.55 - 1.02 mg/dL TBH TBH EGFR-AF [place] >60 >=60 mL/min/1.7 3m 2 TBH TBH EGFR-NON AF [place] >60 >=60 mL/min/1.7 3m 2 [facility] 05/04/2025 7:23 AM EDT 05/04/2025 7:30 AM EDT Narrative CLINISYNC - 05/04/2025 8:21 AM EDT Rossana ORR Final Result [facility] * (ABNORMAL) GLUCOSE TOLERANCE 3 HOUR (05/04/2025 [...] ORDERABLES Final Resul t Performing Organization Address [facility] Co de Phone Number [facility] * [facility] PROTHROMBIN TIME INR W/O [...] Rossana ORR Final Result Performing Organization Address [facility] Co de Phone Number [facility] TB * [facility] AST (05/04/2025 7:23 AM EDT) ASPARTATE AMINO TRANSFERASE 23 15 - 37 U/L [facility] 05/04/2025 7:23 AM EDT 05/04/2025 7:30 AM EDT Narrative CLINISYNC - 05/04/2025 8:21 AM EDT us Rossana ORR Final Result Performing Organization Address [facility] Co de Phone Number [facility] TB * [facility] APTT (05/04/2025 7:23 AM EDT) PARTIAL THROMBOPLASTIN TIME 25.7 22.3 - 36.2 sec [facility] 05/04/2025 7:23 AM EDT 05/04/2025 7:30 AM EDT Narrative CLINISYNC - 05/04/2025 8:04 AM EDT Rossana BISWAS CLINISYNC Final Result Performing Organization Address [facility] Co de Phone Number [facility] * ALL URIC ACID (05/04/2025 7:23 AM EDT) Pathologist [facility] URIC ACID 3.7 2.6 - 6.0 mg/dL [facility] 05/04/2025 7:23 AM EDT 05/04/2025 7:30 AM EDT Narrative CLINISYNC - 05/04/2025 8:21 AM EDT us Rossana ROSENBERGISYNC Final Result Performing Organization Address [facility] de Phone Number [facility] * ALL LDH (05/04/2025 7:23 AM EDT) [facility] LACTATE DEHYDROGENASE 163 81 - 234 U/L TB 05/04/2025 7:23 AM EDT 05/04/2025 7:30 AM EDT Narrative CLINISYNC - 05/04/2025 8:21 AM EDT Rossana ROSENBERGISYNC Final Result Performing Organization Address [facility] de Phone Number [facility]NC [facility] * (ABNORMAL) ALL CBC WITH AUTO DIFF (05/04/2025 7:23 AM EDT) Only the most recent of2 resultswithin the time period is included. Pathologist [facility] WBC 12.5(H) 4.0 - 11.0 10 3/uL [...] 05/04/2025 7:43 AM EDT us Rossana BISWAS CLINISYNC Final Result [facility] * ALL BUN (05/04/2025 7:23 AM EDT) BLOOD UREA NITROGEN 8.0 7.0 - 18.0 mg/dL [facility] 05/04/2025 7:23 AM EDT 05/04/2025 7:30 AM EDT Narrative CLINISYNC - 05/04/2025 8:21 AM EDT Rossana BISWAS CLINISYNC Final Result [facility] * (ABNORMAL) POCT urinalysis dipstick manually [...] Urine 04/30/2025 11:3 3 AM EDT Mackenzie Michael DO POINT OF CARE TEST ENTER/EDIT OR DERABLES Final Result * (ABNORMAL) GLUCOSE 1 HOUR (04/27/2025 10:05 AM EDT) GLUCOSE 1 HOUR 171(H) <130 mg/dL [facility] 04/27/2025 10:0 5 AM EDT 04/27/2025 10:06 AM EDT Narrative CLINISYNC - 04/27/2025 10:45 AM EDT Rossana BISWAS LAB BLOOD ORDERABLES Final Resul t [facility] * US OB INCOMPLETE ANATOMY (03/25/2025 8:25 AM EDT) Anatomical Region Laterality Modality Other 03/25/2025 8:25 AM EDT Narrative 03/25/2025 8:27 AM EDT [address] [address] Ultrasound Report Signed Patient: VIMAL FUNES MR#: [id number] : 2000 Acct:[id number] Age/Sex: 24 / F ADM Date: 03/23/25 Loc: US Attending Dr: Mackenzie Rodriguez D.O. Ordering Physician: Mackenzie Rodriguez D.O. Date of Service: 03/23/25 Procedure(s): US OB incomplete anatomy Accession Number(s): [id number] cc: LUIS SEE ; Mackenzie Rodriguez D.O. [place] [address] Patient Name: VIMAL FUNES MRN: [id number] date: 2000 Sex: F Assigned Patient Location: US Current Patient Location: US Accession/Order Number: [id number] Exam Date: 03/25/2025 08:23 Report Date: 03/25/2025 [...] Brown M.D. 03/25/2025 8:25 AM Dictation Location: [place] [address] Electronically authenticated by: [id number] Y Date: 03/25/2025 08:25 Dictated By: Meghana Brown M.D. Signed By: 03/25/25826 DD/ 4 TD/TT: Injection Molding Engineer: Procedure Note Radiology, Radiologist, MD - 03/25/2025 [place] [address] Ultrasound Report Signed Patient: VIMAL FUNES MMR#: [id number] : 2000Acct:[id number] Age/Sex: 24 / FADM Date: 03/23/25 Loc: US Attending Dr: Mackenzie Rodriguez D.O. Ordering Physician: Mackenzie Rodriguez D.O. Date of Service: 03/23/25 Procedure(s): US OB incomplete anatomy Accession Number(s): [id number] cc: LUIS SEE ; Mackenzie Rodriguez D.O. The [place] [address] Patient Name: VIMAL FUNES MRN: [id number] date: 2000 Sex: F Assigned Patient Location: US Current Patient Location: US Accession/Order Number: [id number] Exam Date: 03/25/2025 08:23 Report Date: 03/25/2025 [...] Brown M.D. 03/25/2025 8:25 AM Dictation Location: [place] [address] Electronically authenticated by: [id number] Y Date: 508:25 Dictated By: Meghana Brown M.D. Signed By:03/25/25826 DD/ 4 TD/TT: Injection Molding Engineer: us Mackenzie Rodriguez DO CLINISYNC IMAGING Final Result * US OB CERVICAL LENGTH (03/08/2025 8:36 PM EDT) Anatomical Region Laterality Modality Other 03/08/2025 8:36 PM EDT Narrative 03/08/2025 8:38 [place] [address] Ultrasound Report Signed Patient: VIMAL FUNES MR#: [id number] : 2000 Acct:[id number] Age/Sex: 24 / F ADM Date: 03/08/25 Loc: US Attending Dr: Mackenzie Rodriguez D.O. Ordering Physician: Mackenzie Rodriguez D.O. Date of Service: 03/08/25 Procedure(s): US OB cervical length Accession Number(s): [id number] cc: LUIS SEE ; Mackenzie Rodriguez D.O. [place] [id number] Patient Name: VIMAL FUNES MRN: [id number] date: 2000 Sex: F Assigned Patient Location: US Current Patient Location: Accession/Order Number: [id number] Exam Date: 03/08/2025 20:31 Report Date: 03/08/2025 [...] Knapp M.D. 03/08/2025 8:36 PM Dictation Location: [employer] Electronically authenticated by: [id number] Y Date: 03/08/2025 20:36 Dictated By: Shivam Knapp D.O. Signed By: 03/08/252037 DD/ 35 TD/TT: Injection Molding Engineer: Procedure Note Radiology, Radiologist, MD - 03/08/2025 [place] [address] Ultrasound Report Signed Patient: VIMAL FUNES MMR#: [id number] : 2000Acct:[id number] Age/Sex: 24 / FADM Date: 03/08/25 Loc: US Attending Dr: Mackenzie Rodriguez D.O. Ordering Physician: Mackenzie Rodriguez D.O. Date of Service: 03/08/25 Procedure(s): US OB cervical length Accession Number(s): [id number] cc: LUIS SEE ; Mackenzie Rodriguez D.O. The [place] [address] Patient Name: VIMAL FUNES MRN: [id number] date: 2000 Sex: F Assigned Patient Location: US Current Patient Location: US Accession/Order Number: [id number] Exam Date: 03/08/2025 20:31 Report Date: 03/08/2025 [...] Knapp M.D. 03/08/2025 8:36 PM Dictation Location: [place] [address] Electronically authenticated by: [id number] Y Date: 0:36 Dictated By: Shivam Knapp D.O. Signed By:03/08/252037 DD/ 35 TD/TT: Injection Molding Engineer: us Mackenzie Rodriguez DO CLINISYNC IMAGING Final Result * US OB ANATOMY (03/08/2025 8:36 PM EDT) Anatomical Region Laterality Modality Other 03/08/2025 8:36 PM EDT Narrative 03/08/2025 8:38 PM EDT [address] [address] Ultrasound Report Signed Patient: VIMAL FUNES MR#: [id number] : 2000 Acct:[id number] Age/Sex: 24 / F ADM Date: 03/08/25 Loc: US Attending Dr: Mackenzie oRdriguez D.O. Ordering Physician: Mackenzie Rodriguez D.O. Date of Service: 03/08/25 Procedure(s): US OB anatomy Accession Number(s): [id number] cc: LUIS SEE ; Mackenzie Rodriguez D.O. The [place] [address] Patient Name: VIMAL FUNES MRN: [id number] date: 2000 Sex: F Assigned Patient Location: US Current Patient Location: US Accession/Order Number: [id number] Exam Date: 03/08/2025 20:31 Report Date: 03/08/2025 [...] Knapp M.D. 03/08/2025 8:36 PM Dictation Location: [place] [address] Electronically authenticated by: [id number] Y Date: 03/08/2025 20:36 Dictated By: Shivam Knapp D.O. Signed By: 03/08/252037 DD/ 35 TD/TT: Injection Molding Engineer: Procedure Note Radiology, Radiologist, - 03/08/2025 The [place] [id number] Ultrasound Report Signed Patient: VIMAL FUNES MMR#: [id number] : 2000Acct:[id number] Age/Sex: 24 / FADM Date: 03/08/25 Loc: US Attending Dr: Mackenzie Rodriguez D.O. Ordering Physician: Mackenzie Rodriguez D.O. Date of Service: 03/08/25 Procedure(s): US OB anatomy Accession Number(s): [id number] cc: LUIS SEE ; Mackenzie Rodriguez D.O. [place] [id number] Patient Name: VIMAL FUNES MRN: [id number] date: 2000 Sex: F Assigned Patient Location: US Current Patient Location: US Accession/Order Number: [id number] Exam Date: 03/08/2025 20:31 Report Date: 03/08/2025 [...] Knapp M.D. 03/08/2025 8:36 PM Dictation Location: [employer] Electronically authenticated by: [id number] Y Date: 0:36 Dictated By: Shivam Knapp D.O. Signed By:03/08/252037 DD/ 35 TD/TT: Injection Molding Engineer: Mackenzie Rodriguez DO CLIN[facility] IMAGING Final Result * RECURRENT VAGINITIS (HTRX) (02/20/2025 4:33 PM EDT) [facility] ATOPOBIUM VAGINAE 0.000 19.961 - 24.689 ppm 02/22/2025 6:32 AM EDT [facility] ATOPOBIUM VAGINAE Not Detected 19.961 - 24.689 ppm 02/22/2025 6:32 AM EDT [facility] BVAB 2,3 (BACTERIAL VAGINOSIS ASSOCIATED BACTERIA 2, 3); MOBILUNCUS SPP 0.000 19.961 - 24.689 ppm 02/22/2025 6:32 AM EDT [facility] BVAB 2,3 (BACTERIAL VAGINOSIS ASSOCIATED BACTERIA 2, 3); MOBILUNCUS SPP Not Detected 19.961 - 24.689 ppm 02/22/2025 6:32 AM EDT [facility] SIMEON ALBICANS, PARAPSILOSIS, TROPICALIS 0.000 19.961 - 30.770 ppm 02/22/2025 6:32 AM EDT [facility] SIMEON ALBICANS, PARAPSILOSIS, TROPICALIS Not Detected 19.961 - 30.770 ppm 02/22/2025 6:32 AM EDT [facility] SIMEON GLABRATA 0.000 23.000 - 32.138 ppm 02/22/2025 6:32 AM EDT [facility] SIMEON GLABRATA Not Detected 23.000 - 32.138 ppm 02/22/2025 6:32 AM EDT [facility] SIMEON KRUSEI 0.000 23.000 - 32.271 ppm 02/22/2025 6:32 AM EDT [facility] SIMEON KRUSEI Not Detected 23.000 - 32.271 ppm 02/22/2025 6:32 AM EDT [facility] CHLAMYDIA TRACHOMATIS 0.000 23.000 - 31.467 ppm 02/22/2025 6:32 AM EDT [facility] CHLAMYDIA TRACHOMATIS Not Detected 23.000 - 31.467 ppm 02/22/2025 6:32 AM EDT [facility] GARDNERELLA VAGINALIS 0.000 19.961 - 24.689 ppm 02/22/2025 6:32 AM EDT [facility] GARDNERELLA VAGINALIS Not Detected 19.961 - 24.689 ppm 02/22/2025 6:32 AM EDT [facility] MEGASPHAERA (TYPES 1, 2) 0.000 19.961 - 24.689 ppm 02/22/2025 6:32 AM EDT [facility] MEGASPHAERA (TYPES 1, 2) Not Detected 19.961 - 24.689 ppm 02/22/2025 6:32 AM EDT [facility] NEISSERIA GONORRHOEAE 0.000 23.000 - 32.117 ppm 02/22/2025 6:32 AM EDT [facility] NEISSERIA GONORRHOEAE Not Detected 23.000 - 32.117 ppm 02/22/2025 6:32 AM EDT [facility] TRICHOMONAS VAGINALIS 0.000 23.000 - 32.119 ppm 02/22/2025 6:32 AM EDT [facility] TRICHOMONAS VAGINALIS Not Detected 23.000 - 32.119 ppm 02/22/2025 6:32 AM EDT [facility] MYCOPLASMA GENITALIUM 0.000 19.961 - 24.689 ppm 02/22/2025 6:32 AM EDT [facility] MYCOPLASMA GENITALIUM Not Detected 19.961 - 24.689 ppm 02/22/2025 6:32 AM EDT [facility] Tissue 02/20/2025 4:33 PM EDT 02/22/2025 1:53 AM EDT us Rossana BISWAS LAB BLOOD ORDERABLES Final Resul t [facility] [address] [place] [address] * URINARY TRACT INFECTION (HTRX) (02/20/2025 4:30 PM EDT) [facility] ACINETOBACTER BAUMANII 0.000 19.961 - 24.689 ppm 02/22/2025 6:52 AM EDT [facility] ACINETOBACTER BAUMANII Not Detected 19.961 - 24.689 ppm 02/22/2025 6:52 AM EDT [facility] CITROBACTER FREUNDII 0.000 23.000 - 31.881 ppm 02/22/2025 6:52 AM EDT [facility] CITROBACTER FREUNDII Not Detected 23.000 - 31.881 ppm 02/22/2025 6:52 AM EDT [facility] ENTEROBACTER AEROGENES, CLOACAE 0.000 23.000 - 31.535 ppm 02/22/2025 6:52 AM EDT [facility] ENTEROBACTER AEROGENES, CLOACAE Not Detected 23.000 - 31.535 ppm 02/22/2025 6:52 AM EDT [facility] ENTEROCOCCUS FAECALIS, FAECIUM 0.000 26.000 - 31.575 ppm 02/22/2025 6:52 AM EDT [facility] ENTEROCOCCUS FAECALIS, FAECIUM Not Detected 26.000 - 31.575 ppm 02/22/2025 6:52 AM EDT [facility] ESCHERICHIA COLI 0.000 23.000 - 28.500 ppm 02/22/2025 6:52 AM EDT [facility] ESCHERICHIA COLI Not Detected 23.000 - 28.500 ppm 02/22/2025 6:52 AM EDT [facility] KLEBSIELLA PNEUMONIAE, OXYTOCA 0.000 23.000 - 30.500 ppm 02/22/2025 6:52 AM EDT [facility] KLEBSIELLA PNEUMONIAE, OXYTOCA Not Detected 23.000 - 30.500 ppm 02/22/2025 6:52 AM EDT [facility] MORGANELLA MORGANII 0.000 19.961 - 24.689 ppm 02/22/2025 6:52 AM EDT [facility] MORGANELLA MORGANII Not Detected 19.961 - 24.689 ppm 02/22/2025 6:52 AM EDT [facility] PROTEUS MIRABILIS, VULGARIS 0.000 23.000 - 28.500 ppm 02/22/2025 6:52 AM EDT [facility] PROTEUS MIRABILIS, VULGARIS Not Detected 23.000 - 28.500 ppm 02/22/2025 6:52 AM EDT [facility] PSEUDOMONAS AERUGINOSA 0.000 23.000 - 28.500 ppm 02/22/2025 6:52 AM EDT [facility] PSEUDOMONAS AERUGINOSA Not Detected 23.000 - 28.500 ppm 02/22/2025 6:52 AM EDT [facility] STAPHYLOCOCCUS AUREUS 0.000 26.000 - 30.902 ppm 02/22/2025 6:52 AM EDT [facility] STAPHYLOCOCCUS AUREUS Not Detected 26.000 - 30.902 ppm 02/22/2025 6:52 AM EDT [facility] STREPTOCOCCUS AGALACTIAE (GROUP B STREP) 0.000 26.000 - 32.222 ppm 02/22/2025 6:52 AM EDT [facility] STREPTOCOCCUS AGALACTIAE (GROUP B STREP) Not Detected 26.000 - 32.222 ppm 02/22/2025 6:52 AM EDT [facility] SIMEON ALBICANS, PARAPSILOSIS, TROPICALIS 0.000 19.961 - 30.770 ppm 02/22/2025 6:52 AM EDT [facility] SIMEON ALBICANS, PARAPSILOSIS, TROPICALIS Not Detected 19.961 - 30.770 ppm 02/22/2025 6:52 AM EDT [facility] SIMEON GLABRATA 0.000 23.000 - 32.138 ppm 02/22/2025 6:52 AM EDT [facility] SIMEON GLABRATA Not Detected 23.000 - 32.138 ppm 02/22/2025 6:52 AM EDT [facility] SIMEON KRUSEI 0.000 23.000 - 32.271 ppm 02/22/2025 6:52 AM EDT [facility] SIMEON KRUSEI Not Detected 23.000 - 32.271 ppm 02/22/2025 6:52 AM EDT [facility] SERRATIA MARCESCENS 0.000 23.000 - 31.204 ppm 02/22/2025 6:52 AM EDT [facility] SERRATIA MARCESCENS Not Detected 23.000 - 31.204 ppm 02/22/2025 6:52 AM EDT [facility] STREPTOCOCCUS PYOGENES (GROUP A STREP) 0.000 19.961 - 24.689 ppm 02/22/2025 6:52 AM EDT [facility] STREPTOCOCCUS PYOGENES (GROUP A STREP) Not Detected 19.961 - 24.689 ppm 02/22/2025 6:52 AM EDT [facility] STAPHYLOCOCCUS EPIDERMIDIS, HAEMOLYTICUS, LUGDUNENSIS, SAPROPHYTICUS (URINA 0.000 19.961 - 24.689 ppm 02/22/2025 6:52 AM EDT [facility] STAPHYLOCOCCUS EPIDERMIDIS, HAEMOLYTICUS, LUGDUNENSIS, SAPROPHYTICUS (URINA Not Detected 19.961 - 24.689 ppm 02/22/2025 6:52 AM EDT [facility] STAPHYLOCOCCUS EPIDERMIDIS, HAEMOLYTICUS, LUGDUNENSIS, SAPROPHYTICUS (URINA 0.000 19.961 - 24.689 ppm 02/22/2025 6:52 AM EDT [facility] STAPHYLOCOCCUS EPIDERMIDIS, HAEMOLYTICUS, LUGDUNENSIS, SAPROPHYTICUS (URINA Not Detected 19.961 - 24.689 ppm 02/22/2025 6:52 AM EDT [facility] Urine 02/20/2025 4:30 PM EDT 02/22/2025 1:52 AM EDT us Rossana BISWAS LAB BLOOD ORDERABLES Final Resul t [facility] [address] [place] [address] * IGP,APTIMA HPV,AGE GDLN (02/20/2025 3:50 PM EDT) [facility] [place] DEE AC TESTING Note . [facility] Comment: TESTS RESULT FLAG UNITS REF RANGE LAB Clinician Provided Cytology Information Source.............Endocervix No. of containers..01 ThinPrep Vial Ricky MORALES Yris... FLAG LEGEND: L-Low Normal,H-High Normal,LL-Alert Low,HH-Alert High <-Panic Low,>-Panic High,A-Abnormal,AA-Critical Abnormal Performed at: 01 =G [address] [address] Jenise Byrne MD, IGP, RFX APTIMA HPV ASCU Note . [facility] Comment: TESTS RESULT FLAG UNITS REF RANGE LAB DIAGNOSIS: 02 NEGATIVE FOR INTRAEPITHELIAL LESION OR MALIGNANCY. Specimen adequacy: 02 Satisfactory for evaluation. Endocervical and/or squamous metaplastic cells (endocervical component) are present. Performed by: 02 [employer] (ASCP) . 02 Note: Note 02 The [...] <-Panic Low,>-Panic High,A-Abnormal,AA-Critical Abnormal Performed at: [address] [address] Jenise Byrne MD, Performed at: =G - [facility] [address] [id number] Outside Medical Sales Representative: Jenise Byrne MD, Phone: [phone] Performed at: [facility] [address] [id number] Outside Medical Sales Representative: Jenise Byrne MD, Phone: [phone] 02/20/2025 3:50 PM EDT 02/20/2025 9:13 PM EDT Narrative [facility] - 02/23/2025 1:08 PM EDT SPATULA-ALONE ENDOCERVIX us Rossana BISWAS LAB BLOOD ORDERABLES Final Resul t [facility] * Pap Smear (02/20/2025 12:00 AM EDT) Swab Cervical swab / Unknown us Rossana BISWAS LAB CYTOLOGY ORDERABLES Final Re sult EXTERNAL LAB from Last 3 Months Insurance [employer] Care Teams Prefinish Operator Relationship Specialty Start Date End Date Unallocated, Noms Provider, [address] [place], [place] [phone] PCP - General Family Medicine 08/03/24
--- OUTSIDE RECORDS SUMMARY | 2025-05-18 11:14 | XMS_ITS | Encounter Summary ---
Author Organization [facility] Address [address] [place] [address] Care Team Providers Care Charge Lpn Name Role Phone Unallocated, Noms Provider Primary Care Provi krissy Encounter Details Date Type Department Care Team (Late Contact Info) Description 05/14/2025 Bamboo flowsheet ARJUN PANG [address] [place] [address] Jose Rodriguez DO [address] [place], [place] [address]Tal [place], [facility]11 Social History Tobacco Use Types [...] 2:40 PM EDT Routine NOMMay PANG [address] [place] [address] Jose Rodriguez DO [address] [place], [place] [address] [place] [address] documented as of this encounter Visit Diagnoses Not on filedocumented in this encounter Care Teams Charge Lpn Relationship Specialty Start Date End Date Unallocated, Noms Provider, [place] [address] PCP - General Family Medicine 08/03/24 documented as of this encounter
--- NOTE | 2025-05-18 11:15 | US_ITS ---
[address] [address] Patient Name: VIMAL PIZANO MRN: [id number] date: 2000 Sex: F Assigned Patient Location: [facility] Current Patient Location: Accession/Order Number: [id number] Exam Date: 05/18/2025 11:16 Report Date: 05/18/2025 17:08 At the request of: COLLIN LEACH Procedure: US OB BPP w non-stress US OB BPP w non-stress 05/18/2025 11:31 AM SIGNS AND SYMPTOMS: ^Hypertension, gestational diabetes mellitus PROTOCOL: Transabdominal sonographic imaging of the gravid uterus COMPARISON: None FINDINGS: heart rate: 147 bpm Amniotic fluid index: 12.15 cm the deepest vertical pocket measures 4.0 cm Estimated gestational age: 30 weeks 5 days Biophysical profile: breathing movements: 2/2 Gross body movements: 2/2 tone: 2/2 Amniotic fluid volume: 2/2 US/US OB BPP w non-stress IMPRESSION: Biophysical profile score: 8 Impression dictated by: Heriberto Acharya M.D. 05/18/2025 5:08 PM Dictation Location: [place] Electronically authenticated by: [id number] Y Date: 05/18/2025 17:08
[2025-05-18 11:34] VITALS: BP 116/58; PULSE 73; TEMP 36.6
== END 2025-05-18 12:38 | disposition home or self-care (01) ==
LOC: US 11:10 → FBC 11:12
PROVIDERS: PCP Nurse Practitioner Family; Visit Provider Physician Assistant
DX: O13.9 Gestational [pregnancy-induced] hypertension without significant proteinuria, unspecified trimester (principal); O16.3 Unspecified maternal hypertension, third trimester; Z3A.30 30 weeks gestation of pregnancy
CPT/HCPCS: 36415; 76818; 82565; 83615; 84450; 84520; 84550; 85025; 85610; 85730

== ENCOUNTER 2025-05-20 17:15 | Outpatient (REF) | payer BC, OTHER, SELFPAY ==
--- OUTSIDE RECORDS SUMMARY | 2025-05-13 13:30 | XMS_ITS | Encounter Summary ---
Author Organization [facility] tem Address [facility]-[id number] [address] [place] [address] Care Team Providers Care Joint Cutter Name Role Phone Unavailable Primary Care Provider Unavailabl e Reason for Visit * Reason Comments Gestational Diabetes * Consultation (Routine) - Pending Review Specialty Diagnoses / Procedures Referred By Contac t Referred To Contact Maternal and Medicine Diagnoses Gestational diabetes mellitus (GDM) in third trimester, gestational diabetes method of control unspecified Jose Rodriguez, DO [address] [place] [address] [place] [address] Phone: tel: fax: Maternal- Medicine at [facility] [address] [place] [address] Phone: tel: fax: Referral ID Status Reason Start Date Expiration Date Visits Requested Visits Authorized [id number] Pending Review Specialty Services Required 05/09/2025 05/09/2026 1 1 Encounter Details Date Type Department Care Team (Late st Contact Info) Description 05/13/2025 1:30 PM EDT Support Visit Maternal- Medicine at [facility] [address] [place] [address] Marjorie Rico, RN [address] [facility] [address] [phone] Xenia Rayo, ALEC [address], [address] [place] [phone] Gestational diabetes mellitus (GDM) in third trimester, [...] Info) Description 06/04/2025 1:00 PM EDT Appointment [facility] - Ultrasound [address] [place] [address] Jose Rodriguez, DO [address] [place] [address] [place] [place] [address] documented as of this encounter Procedures Procedure [...]
--- OUTSIDE RECORDS SUMMARY | 2025-05-14 14:40 | XMS_ITS | Encounter Summary ---
Author Organization [facility] Address [address] [place] [address] Care Team Providers Care Survey Operations Director Name Role Phone Unallocated, Noms Provider Primary Care Provi krissy Reason for Visit * Reason Comments Routine Visit Encounter Details Date Type Department Care Team (Late st Contact Info) Description 05/14/2025 2:40 PM EDT Routine [facility] [place] [facility] [address] [facility] [address] Jose Rodriguez DO [address] [facility] [address] Josué [place], [facility]11 Third trimester ([facility]); 30 weeks gestation of ([facility]); induced hypertension, antepartum ([facility]) Social History Tobacco Use Types [...] Sign Reading Time Taken Comments Blood Pressure 140/90 05/14/2025 2:59 PM EDT Pulse - - Temperature - - Respiratory Rate - - Oxygen Saturation - - Inhaled Oxygen Concentration - - Weight 80.3 kg (177 lb) 05/14/2025 2:59 PM EDT Height - - Body Mass Index 31.35 01/06/2023 12:00 PM EDT documented in this encounter Progress Notes * Meghana Felder, S[employer]ASS - 05/14/2025 2:40 PM EDT Reason for Appointment: Patient ID: Amber Funes is a 25 y.o. female who presents for Routine Visit Patient presents today for Return OB appointment. MEDICATIONS Current Outpatient Medications Medication Instructions Alcohol Swabs (Alcohol Prep Pad) 70 % pads 1 Pad, Topical, Daily, Use four times daily to check FSBS. Blood Glucose Monitoring Suppl (D-[employer] Glucometer) w/Device kit 1 kit, Does not apply, Daily, Use four times daily to check FSBS. In the morning prior to breakfast & 1 hour after each meal for a total of 4times daily. Glucose Blood (Blood Glucose Test) strip 1 strip, In Vitro, Daily, Use in the morning prior to breakfast, 1 hour after each meal for a total of 4times daily. labetalol (NORMODYNE) 200 mg, Oral, 2 times daily labetalol (NORMODYNE) 300 mg, Oral, 3 times daily Lancets Ultra Thin misc 1 each, In Vitro, Daily, Use to check FSBS four times daily loratadine (CLARITIN) 10 mg, Daily [...] nursing note reviewed. Exam conducted with a logging crew supervisor present. Vitals: Estimated body mass index is 31.35 kg/m?? as calculated from the following: Height as of 01/06/23: 5' 3 . Weight as of this encounter: 177 lb. BP: 140/90 Patient's last menstrual period was 10/15/2024 (exact date). ASSESSMENT & PLAN ICD-10-CM 1. Third trimester ([facility]) Z34.93 POCT urinalysis dipstick manually resulted 2. 30 weeks gestation of ([facility]) Z3A.30 POCT urinalysis dipstick manually resulted 3. induced hypertension, antepartum ([facility]) O13.9 Creatinine Protein, urine, 24 hour Pt and ptt CBC and differential Uric acid Lactate dehydrogenase ALT AST BUN Creatinine Protein, urine, 24 hour Pt and ptt CBC and differential Uric acid Lactate dehydrogenase ALT AST BUN Return OB: Patient presents today for a routine obstetrics appointment. Patient is currently 30w1d . Patient states she is doing well but has complaints of being tired due to current . Patient has verbalizes frequent movement. labor precautions was discussed/given and patient was instructed to perform kick counts three times a day. Pt has bp that is trending high, PIH panel given to pt. Pt given preeclampsia precautions. Orders Placed This Encounter Procedures Creatinine Protein, urine, 24 hour Pt and ptt CBC and differential Uric acid Lactate dehydrogenase ALT AST BUN POCT urinalysis dipstick manually resulted Follow Up: Patient is to return to office in 2 week for routine OB appointment. Documented by Meghana Felder LPN on behalf of: Jose Rodriguez DO documented in this encounter Plan of Treatment Upcoming Encounters Date Type Department Care Team (Late st Contact Info) Description 05/22/2025 2:40 PM EDT Routine [facility] [address] [facility] [place] [address] Jose Rodriguez DO [address] [place] [address] Scheduled Orders Name Type Priority Associated Diagnoses Orde r Schedule Creatinine Lab Routine induced hypertension, antepartum ([facility]) Expected: 05/14/2025 (Approximate), Expires: 05/14/2026 Protein, urine, 24 hour Lab Routine induced hypertension, antepartum ([facility]) Expected: 05/14/2025 (Approximate), Expires: 05/14/2026 Pt and ptt Lab Routine induced hypertension, antepartum ([facility]) Expected: 05/14/2025, Expires: 05/14/2026 CBC and differential Lab Routine induced hypertension, antepartum ([facility]) Expected: 05/14/2025 (Approximate), Expires: 05/14/2026 Uric acid Lab Routine induced hypertension, antepartum ([facility]) Expected: 05/14/2025 (Approximate), Expires: 05/14/2026 Lactate dehydrogenase Lab Routine induced hypertension, antepartum ([facility]) Expected: 05/14/2025, Expires: 05/14/2026 ALT Lab Routine induced hypertension, antepartum ([facility]) Expected: 05/14/2025 (Approximate), Expires: 05/14/2026 AST Lab Routine induced hypertension, antepartum ([facility]) Expected: 05/14/2025 (Approximate), Expires: 05/14/2026 BUN Lab Routine induced hypertension, antepartum ([facility]) Expected: 05/14/2025, Expires: 05/14/2026 documented as of this encounter Visit Diagnoses Diagnosis Third trimester ([facility]) state, incidental 30 weeks gestation of ([facility]) induced hypertension, antepartum ([facility]) Transient hypertension of , antepartum documented in this encounter Care Teams Survey Operations Director Relationship Specialty Start Date End Date Unallocated, Noms Provider, [address] [place] [address] PCP - General Family Medicine 08/03/24 documented as of this encounter
--- OUTSIDE RECORDS SUMMARY | 2025-05-20 17:19 | XMS_ITS | Encounter Summary ---
Author Organization [facility] Address [address] [place] [address] Care Team Providers Care B And B Gang Worker Name Role Phone Unallocated, Noms Provider Primary Care Provi krissy Encounter Details Date Type Department Care Team (Late st Contact Info) Description 05/18/2025 Clinisync Result Encounter NOMS External Department Unsolicited Collin Leach PA [address] [place], [facility]11 Social [...] PM EDT Routine [facility] [address] [facility] [place] [phone] Jose Rodriguez DO [address] [facility] [address] [place], [facility]11 documented as of this encounter Procedures Procedure Name Priority Date/Time Associated Diagnosis Comments US OB BPP W NON-STRESS 05/18/2025 5:08 PM EDT documented in this encounter Results * US OB BPP W NON-STRESS (05/18/2025 5:08 PM EDT) Anatomical Region Laterality Modality Other 05/18/2025 5:08 PM EDT Narrative 05/18/2025 8:17 [place] [address] Ultrasound Report Signed Patient: VIMAL PIZANO MR#: [id number] : 2000 Acct:[id number] Age/Sex: 25 / F ADM Date: 05/18/25 Loc: US Attending Dr: Collin Leach Ordering Physician: Collin Leach Date of Service: 05/18/25 Procedure(s): US OB BPP w non-stress Accession Number(s): [id number] cc: Collin Leach; LUIS SEE [address] [address] Patient Name: VIMAL PIZANO MRN: [id number] date: 2000 Sex: F Assigned Patient Location: [facility] Current Patient Location: Accession/Order Number: [id number] Exam Date: 05/18/2025 11:16 Report Date: 05/18/2025 17:08 At the request of: COLLIN LEACH Procedure: US OB BPP w non-stress US OB BPP w non-stress 05/18/2025 11:31 AM SIGNS AND SYMPTOMS: Hypertension, gestational diabetes mellitus PROTOCOL: Transabdominal sonographic imaging of the gravid uterus COMPARISON: None FINDINGS: heart rate: 147 bpm Amniotic fluid index: 12.15 cm the deepest vertical pocket measures 4.0 cm Estimated gestational age: 30 weeks 5 days Biophysical profile: breathing movements: 2/2 Gross body movements: 2/2 tone: 2/2 Amniotic fluid volume: 2/2 US/US OB BPP w non-stress IMPRESSION: Biophysical profile score: 05/03 Impression dictated by: Heriberto Acharya M.D. 05/18/2025 5:08 PM Dictation Location: [place] [address] Electronically authenticated by: [id number] Y Date: 05/18/2025 17:08 Dictated By: Heriberto Acharya M.D. Signed By: 05/18/252016 DD/ 07 TD/TT: Tube Backer: Procedure Note Radiology, Radiologist, MD - 05/18/2025 [place] [address] Ultrasound Report Signed Patient: VIMAL PIZANO MMR#: [id number] : 2000Acct:[id number] Age/Sex: 25 / FADM Date: 05/18/25 Loc: US Attending Dr: Collin Leach Ordering Physician: Collin Leach Date of Service: 05/18/25 Procedure(s): US OB BPP w non-stress Accession Number(s): [id number] cc: Collin Leach; LUIS SEE [place] [id number] Patient Name: VIMAL PIZANO MRN: [id number] date: 2000 Sex: F Assigned Patient Location: [facility] Current Patient Location: Accession/Order Number: [id number] Exam Date: 05/18/2025 11:16 Report Date: 05/18/2025 17:08 At the request of: COLLIN LEACH Procedure: US OB BPP w non-stress US OB BPP w non-stress 05/18/2025 11:31 AM SIGNS AND SYMPTOMS: Hypertension, gestational diabetes mellitus PROTOCOL: Transabdominal sonographic imaging of the gravid uterus COMPARISON: None FINDINGS: heart rate: 147 bpm Amniotic fluid index: 12.15 cm the deepest vertical pocket measures 4.0 cm Estimated gestational age: 30 weeks 5 days Biophysical profile: breathing movements: 2/2 Gross body movements: 2/2 tone: 2/2 Amniotic fluid volume: 2/2 US/US OB BPP w non-stress IMPRESSION: Biophysical profile score: 05/03 Impression dictated by: Heriberto Acharya M.D. 05/18/2025 5:08 PM Dictation Location: [place] [address] Electronically authenticated by: [id number] Y Date: 7:08 Dictated By: Heriberto Acharya M.D. Signed By:05/18/252016 DD/ 170 TD/TT: Tube Backer: Collin BISWAS [facility] Final Result documented in this encounter Visit Diagnoses Not on filedocumented in this encounter Care Teams B And B Gang Worker Relationship Specialty Start Date End Date Unallocated, Noms Provider, [address] [place] [address] PCP - General Family Medicine 08/03/24 documented as of this encounter
--- OUTSIDE RECORDS SUMMARY | 2025-05-20 17:19 | XMS_ITS | Encounter Summary ---
Author Organization [facility] Address [address] [place] [address] Care Team Providers Care Record Searcher Name Role Phone Unallocated, Noms Provider Primary Care Provi krissy Encounter Details Date Type Department Care Team (Late st Contact Info) Description 05/08/2025 Abstract ARJUN PANG [facility] [place] [address] Jose Rodriguez DO [address] [place], [facility]11 Social History Tobacco [...] EDT Routine NOMMay PANG [address] [place] [address] Jose Rodriguez DO [address] [facility] [address] [place] [place] [address] documented as of this encounter Visit Diagnoses Not on filedocumented in this encounter Care Teams Record Searcher Relationship Specialty Start Date End Date Unallocated, Noms Provider, [place] [address] PCP - General Family Medicine 08/03/24 documented as of this encounter
--- OUTSIDE RECORDS SUMMARY | 2025-05-20 17:19 | XMS_ITS | Encounter Summary ---
Author Organization [facility] Address [address] [place] [address] Care Team Providers Care Six Horse Hitch Driver Name Role Phone Unallocated, Noms Provider Primary Care Provi krissy Encounter Details Date Type Department Care Team (Late st Contact Info) Description 05/18/2025 Clinisync Result Encounter NOMS External Department Unsolicited Jose Rodriguez DO [address] [place] [address] Social History Tobacco Use Types Packs/Day [...] Routine [facility] [address] [place] [address] Jose Rodriguez DO [address] [place] [address] documented as of this encounter Procedures Procedure Name Priority Date/Time Associated Diagnosis Comments TBH CREATININE Routine 05/18/2025 11:03 AM EDT [facility] PROTHROMBIN TIME INR W/O COUM Routine 05/18/2025 11:03 AM EDT [facility] AST Routine 05/18/2025 11:03 AM EDT [facility] APTT Routine 05/18/2025 11:03 AM EDT ALL URIC ACID Routine 05/18/2025 11:03 AM EDT ALL LDH Routine 05/18/2025 11:03 AM EDT ALL CBC WITH AUTO DIFF Routine 05/18/2025 11:03 AM EDT ALL BUN Routine 05/18/2025 11:03 AM EDT documented in this encounter Results * ALL LDH (05/18/2025 11:03 AM EDT) LACTATE DEHYDROGENASE 147 81 - 234 U/L TB 05/18/2025 11:0 3 AM EDT 05/18/2025 11:08 AM EDT Narrative [facility] - 05/18/2025 11:50 AM EDT us Jose Michael DO [facility] Final Result [facility] TB * [facility] AST (05/18/2025 11:03 AM EDT) ASPARTATE AMINO TRANSFERASE 18 15 - 37 U/L TB 05/18/2025 11:0 3 AM EDT 05/18/2025 11:08 AM EDT Narrative [facility] - 05/18/2025 11:50 AM EDT Jose Michael DO [facility] Final Result [facility] * ALL URIC ACID (05/18/2025 11:03 AM EDT) URIC ACID 4.0 2.6 - 6.0 mg/dL TB 05/18/2025 11:0 3 AM EDT 05/18/2025 11:08 AM EDT Narrative [facility] - 05/18/2025 11:50 AM EDT Jose Michael DO [facility] Final Result Performing Organization Address [facility] Co de Phone Number [facility] * (ABNORMAL) TBH CREATININE (05/18/2025 11:03 AM EDT) CREATININE 0.38(L) 0.55 - 1.02 mg/dL TBH TBH EGFR-AF AZERBAIJANI >60 >=60 mL/min/1.7 3m 2 TBH TBH EGFR-NON AF AZERBAIJANI >60 >=60 mL/min/1.7 3m 2 TBH 05/18/2025 11:0 3 AM EDT 05/18/2025 11:08 AM EDT Narrative [facility] - 05/18/2025 11:50 AM EDT Jose Michelezio DO [facility] Final Result Performing Organization Address City/[facility]/ZIP Co de Phone Number [facility] * ALL BUN (05/18/2025 11:03 AM EDT) BLOOD UREA NITROGEN 9.0 7.0 - 18.0 mg/dL TBH 05/18/2025 11:0 3 AM EDT 05/18/2025 11:08 AM EDT Narrative [facility] - 05/18/2025 11:50 AM EDT Jose Michael DO [facility] Final Result [facility] * [facility] APTT (05/18/2025 11:03 AM EDT) PARTIAL THROMBOPLASTIN TIME 25.6 22.3 - 36.2 sec TBH 05/18/2025 11:0 3 AM EDT 05/18/2025 11:08 AM EDT Narrative [facility] - 05/18/2025 11:29 AM EDT Jose Michael DO [facility] Final Result Performing Organization Address City/[facility]/ZIP Co de Phone Number [facility] * [facility] PROTHROMBIN TIME INR W/O COUM (05/18/2025 11:03 AM EDT) PROTHROMBIN TIME 10.2 9.0 - 11.6 sec TB TB INR 0.96 TBH Comment: DESIRED INR: 2.0-3.0 CONDITIONS NOT LISTED BELOW 2.5-3.5 FOR PROSTHETIC HEART VALVE REPLACEMENT 2.5-3.5 RECURRENT THROMBOSIS 05/18/2025 11:0 3 AM EDT 05/18/2025 11:08 AM EDT Narrative [facility] - 05/18/2025 11:29 AM EDT [facility] Michael DO [facility] Final Result Performing Organization Address City/[facility]/ZIP Co de Phone Number [facility] * (ABNORMAL) ALL CBC WITH AUTO DIFF (05/18/2025 11:03 AM EDT) TBH WBC 15.0(H) 4.0 - 11.0 10 3/uL TBH TBH RBC 4.17(L) 4.20 - 5.40 10 6/uL TBH TBH HGB 13.3 12.0 - 16.0 g/dL TBH TBH HCT 38.1 36.0 - 48.0 % TBH TBH MCV 91.4 81.0 - 99.0 fL TBH TBH MCH 31.9 26.7 - 34.0 pg TBH TBH MCHC 34.9 29.9 - 35.2 g/dL TBH TBH RDW 12.7 11.0 - 15.0 % TBH TBH PLT 223 150 - 450 10 3/uL TBH TBH MPV 11.2 9.5 - 13.5 fL TBH NEUTROPHILS PERCENT AUTO 84.1(H) 43.0 - 75.0 % TBH LYMPHOCYTES PERCENT AUTO 9.0(L) 20.5 - 60.0 % TBH MONOCYTES PERCENT AUTO 4.7 1.7 - 12.0 % TBH TBH EO % 1.7 0.9 - 7.0 % TBH BASOPHILS PERCENT AUTO 0.1(L) 0.2 - 2.0 % TBH IMMATURE GRANULOCYTES PCT AUTO 0.4 0.0 - 0.5 % TBH NEUTROPHILS ABSOLUTE AUTO 12.6(H) 1.4 - 6.5 10 3/uL TBH LYMPHOCYTES ABSOLUTE AUTO 1.4 1.2 - 3.8 10 3/uL TBH MONOCYTES ABSOLUTE AUTO 0.7 0.3 - 0.8 10 3/uL TBH TBH EO # 0.3 0.0 - 0.7 10 3/uL TBH BASOPHILS ABSOLUTE AUTO 0.0 0.0 - 0.1 10 3/uL TBH IMMATURE GRANULOCYTES ABS AUTO 0.06(H) 0.00 - 0.03 10 3/uL TBH 05/18/2025 11:0 3 AM EDT 05/18/2025 11:08 AM EDT Narrative [facility] - 05/18/2025 11:27 AM EDT us Jose Michael DO [facility] Final Result [facility] TB documented in this encounter Visit Diagnoses Not on filedocumented in this encounter Care Teams Six Horse Hitch Driver Relationship Specialty Start Date End Date Unallocated, Noms Provider, MD Zuhair [address] [place], [place] [phone] PCP - General Family Medicine 08/03/24 documented as of this encounter
--- OUTSIDE RECORDS SUMMARY | 2025-05-20 17:20 | XMS_ITS | Encounter Summary ---
Author Organization [facility] Address [address] [place] [address] Care Team Providers Care Grain Handler Name Role Phone Vaishali Zapata MD Primary Care Provider Bipin cheng Unallocated, Noms Provider Primary Care Provi krissy Encounter Details Date Type Department Care Team (Late st Contact Info) Description 08/02/2024 Abstract ARJUN PANG [address] [employer] [place] [address] Jose Rodriguez DO [address] [place], [place] [address] Social History Tobacco Use Types Packs/Day Years [...] 2:40 PM EDT Routine ARJUN PANG [address] [place] [address] Jose Rodriguez DO [address] [place], [facility]11 documented as of this encounter Visit Diagnoses Not on filedocumented in this encounter Care Teams Grain Handler Relationship Specialty Start Date End Date Vaishali Zapata MD [address] [place] [address] PCP - General Family Medicine 02/04/23 08/02/24 Unallocated, Noms Provider, [address] [place] [address] PCP - General Family Medicine 08/03/24 documented as of this encounter
--- OUTSIDE RECORDS SUMMARY | 2025-05-20 17:20 | XMS_ITS | Encounter Summary ---
Author Organization [facility] Address [address] [place] [address] Care Team Providers Care Machine Maintenance Servicer Name Role Phone Unallocated, Noms Provider Primary Care Provi krissy Encounter Details Date Type Department Care Team (Late st Contact Info) Description 08/10/2024 Clinisync Result Encounter NOMS External Department Unsolicited Mackenzie Rodriguez DO [address] [place], [facility]11 Social History Tobacco Use [...] Routine [facility] [address] [place] [phone] Mackenzie Rodriguez DO [address] [place] [address] documented as of this encounter Procedures Procedure Name Priority Date/Time Associated Diagnosis Comments US OB TRANSVAGINAL 08/10/2024 8: 44 AM EST documented in this encounter Results * US OB TRANSVAGINAL (08/10/2024 8:44 AM EST) Anatomical Region Laterality Modality Other 08/10/2024 8:44 AM EST Narrative 08/10/2024 8:47 [place] [address] Ultrasound Report Signed Patient: AMBER PIZANO MR#: [id number] : 2000 Acct:[id number] Age/Sex: 24 / F ADM Date: 08/10/24 Loc: SURGOUT Attending Dr: Mackenzie Rodriguez D.O. Ordering Physician: Mackenzie Rodriguez D.O. Date of Service: 08/10/24 Procedure(s): US OB transvaginal Accession Number(s): [id number] cc: LUIS SEE ; Mackenzie Rodriguez D.O. The [place] [id number] Patient Name: AMBER PIZANO MRN: [id number] date: 2000 Sex: F Assigned Patient Location: [facility] Current Patient Location: [facility] Accession/Order Number: [id number] Exam Date: 08/10/2024 08:10 Report Date: 08/10/2024 [...] M.D. Signed By: 08/10/24846 DD/ 3 TD/TT: Ripening Room Attendant: Procedure Note Radiology, Radiologist, MD - 08/10/2024 [place] [address] Ultrasound Report Signed Patient: AMBER PIZANO MMR#: [id number] : 2000Acct:[id number] Age/Sex: 24 / FADM Date: 08/10/24 Loc: SURGOUT Attending Dr: Mackenzie Rodriguez D.O. Ordering Physician: Mackenzie Rodriguez D.O. Date of Service: 08/10/24 Procedure(s): US OB transvaginal Accession Number(s): [id number] cc: LUIS SEE ; Mackenzie Rodriguez D.O. The [place] [id number] Patient Name: AMBER PIZANO MRN: [id number] date: 2000 Sex: F Assigned Patient Location: [facility] Current Patient Location: [facility] Accession/Order Number: [id number] Exam Date: 08/10/2024 08:10 Report Date: 08/10/2024 [...] Lavon Herrera M.D. Signed By:08/10/2447 DD/ TD/TT: Ripening Room Attendant: us Mackenzie Michael DO [facility] Final Result documented in this encounter Visit Diagnoses Not on filedocumented in this encounter Care Teams Machine Maintenance Servicer Relationship Specialty Start Date End Date Unallocated, Noms Provider, [address] [place] [address] PCP - General Family Medicine 08/03/24 documented as of this encounter
--- OUTSIDE RECORDS SUMMARY | 2025-05-20 17:20 | XMS_ITS | Encounter Summary ---
Author Organization [facility] Address [address] [place] [address] Care Team Providers Care Boiler Assistant Operator Name Role Phone Unallocated, Noms Provider Primary Care Provi krissy Encounter Details Date Type Department Care Team (Late st Contact Info) Description 05/06/2025 Clinisync Result Encounter [facility] External Department Unsolicited Rossana Ramos PA [address] [place], [id number] [...] PM EDT Routine [facility] [address] [facility] [place] [phone] Jose Rodriguez DO [address] [facility] [address] Josué [place], [id number] documented as of this encounter Procedures Procedure [...] EDT us Rossana BISWAS [facility] Final Result [facility] documented in this encounter Visit Diagnoses Not on filedocumented in this encounter Care Teams Boiler Assistant Operator Relationship Specialty Start Date End Date Unallocated, Noms Provider, [address] [place] [address] PCP - General Family Medicine 08/03/24 documented as of this encounter
--- OUTSIDE RECORDS SUMMARY | 2025-05-20 17:20 | XMS_ITS | Encounter Summary ---
Author Organization [facility] Address [address] [place] [address] Care Team Providers Care Warehouse Loader Name Role Phone Unallocated, Noms Provider Primary Care Provi krissy Encounter Details Date Type Department Care Team (Late st Contact Info) Description 05/07/2025 Results Follow-Up ARJUN [place] OBGYKeegan [address] [facility] [address] [place] [address] Glenna Butler LPN [address] [place] [address] ALL CBC WITH AUTO DIFF, [...] PM EDT Routine ARJUN [place] OBGYN [address] [facility] [place] [phone] Jose Rodriguez DO [address] [facility] [address] [place] [address] documented as of this encounter Visit Diagnoses Not on filedocumented in this encounter Care Teams Warehouse Loader Relationship Specialty Start Date End Date Unallocated, Arjun Vo MD [address] [place] [address] PCP - General Family Medicine 08/03/24 documented as of this encounter
--- OUTSIDE RECORDS SUMMARY | 2025-05-20 17:20 | XMS_ITS | Encounter Summary ---
Author Organization [facility] Address [address] [place] [address] Care Team Providers Care Fermenter Operator Name Role Phone Vaishali Chaidez MD Primary Care Provider Bipin cheng Unallocated, Noms Provider Primary Care Provi krissy Encounter Details Date Type Department Care Team (Late st Contact Info) Description 06/29/2024 Clinisync Result Encounter [facility] External Department Unsolicited Mackenzie Rodriguez, DO [address] [place], [place] [id number] Social History Tobacco Use Types Packs/Day Years [...] Routine [facility] [address] [place] [phone] Mackenzie Rodriguez DO [address] [place] [address] documented as of this encounter Procedures Procedure Name Priority Date/Time Associated Diagnosis Comments US OB TRANSVAGINAL 06/29/2024 9: 11 AM EDT documented in this encounter Results * US OB TRANSVAGINAL (06/29/2024 9:11 AM EDT) Anatomical Region Laterality Modality Other 06/29/2024 9:11 AM EDT Narrative 06/29/2024 9:14 [place] [address] Ultrasound Report Signed Patient: Vimal Pizano MR#: [id number] : 2000 Acct:[id number] Age/Sex: 24 / F ADM Date: 06/29/24 Loc: [facility] Attending Dr: Mackenzie Rodriguez D.O. Ordering Physician: Mackenzie Rodriguez D.O. Date of Service: 06/29/24 Procedure(s): US OB transvaginal Accession Number(s): [id number] cc: Mackenzie Rodriguez D.O.; VAISHALI CHAIDEZ [place] [address] Patient Name: VIMAL PIZANO MRN: [id number] date: 2000 Sex: F Assigned Patient Location: [facility] Current Patient Location: [facility] Accession/Order Number: [id number] Exam Date: 06/29/2024 08:37 Report Date: 06/29/2024 [...] M.D. Signed By: 06/29/24913 DD/ 0 TD/TT: Professional Model: Procedure Note Radiology, Radiologist, MD - 06/29/2024 [place] [address] Ultrasound Report Signed Patient: Vimal Pizano MMR#: [id number] : 2000Acct:[id number] Age/Sex: 24 / FADM Date: 06/29/24 Loc: [facility] Attending Dr: Mackenzie Rodriguez D.O. Ordering Physician: Mackenzie Rodriguez D.O. Date of Service: 06/29/24 Procedure(s): US OB transvaginal Accession Number(s): [id number] cc: Mackenzie Rodriguez D.O.; VAISHALI CHAIDEZ [place] [address] Patient Name: VIMAL PIZANO MRN: [id number] date: 2000 Sex: F Assigned Patient Location: [facility] Current Patient Location: [facility] Accession/Order Number: [id number] Exam Date: 06/29/2024 08:37 Report Date: 06/29/2024 [...] Herrera M.D. Signed By:06/29/24913 DD/ 0 TD/TT: Professional Model: us Mackenzie Michael DO [facility] Final Result documented in this encounter Visit Diagnoses Not on filedocumented in this encounter Care Teams Fermenter Operator Relationship Specialty Start Date End Date Vaishali Chaidez MD [address] [place] [address] PCP - General Family Medicine 02/04/23 08/02/24 Unallocated, Noms Provider, [address] [place] [address] PCP - General Family Medicine 08/03/24 documented as of this encounter
--- OUTSIDE RECORDS SUMMARY | 2025-05-20 17:20 | XMS_ITS | Encounter Summary ---
Author Organization [facility] Address [address] [place] [address] Care Team Providers Care Engine Repairer Production Name Role Phone Unallocated, Noms Provider Primary Care Provi krissy Encounter Details Date Type Department Care Team (Late st Contact Info) Description 05/04/2025 Telephone [facility] [address] [place] [address] Jose Rodriguez DO [address] Josué [place], [facility] Social History Tobacco Use Types Packs/Day Years [...] PM EDT Routine NOMMay [place] OBGYN [address] [facility] [place] [phone] Jose Rodriguez DO [address] [facility] [address] [place]é [place] [address] documented as of this encounter Visit Diagnoses Diagnosis Gestational diabetes mellitus (GDM), antepartum, gestational diabetes method of control unspecified ([facility]) Elevated glucose tolerance test Impaired glucose tolerance test documented in this encounter Care Teams Engine Repairer Production Relationship Specialty Start Date End Date Unallocated, [place] [address] PCP - General Family Medicine 08/03/24 documented as of this encounter
--- OUTSIDE RECORDS SUMMARY | 2025-05-20 17:21 | XMS_ITS | Encounter Summary ---
Author Organization [facility] Address [address] [place] [address] Care Team Providers Care Garment Sewer Hand Name Role Phone Unallocated, Noms Provider Primary Care Provi krissy Encounter Details Date Type Department Care Team (Late st Contact Info) Description 08/10/2024 Abstract ARJUN PANG [facility] [place] [address] Jose Rodriguez DO [address] [place], [place] [address] Social History Tobacco Use Types Packs/Day Years [...] 05/22/2025 2:40 PM EDT Routine ARJUN PANG [facility] [place] [address] Jose Rodriguez DO [address] [place], [facility] documented as of this encounter Visit Diagnoses Not on filedocumented in this encounter Care Teams Garment Sewer Hand Relationship Specialty Start Date End Date Unallocated, Noms Provider, [address] [place] [address] PCP - General Family Medicine 08/03/24 documented as of this encounter
--- OUTSIDE RECORDS SUMMARY | 2025-05-20 17:21 | XMS_ITS | Encounter Summary ---
Author Organization [facility] tem Address [id number] [address] [place] [address] Care Team Providers Care Accounting Machine Operator Name Role Phone Unavailable Primary Care Provider [...] Info) Description 06/04/2025 1:00 PM EDT Appointment [facility] - Ultrasound [address] [place] [address] Jose Rodriguez, DO [address] [facility] [address] [place] [address] documented as of this encounter Visit Diagnoses Not on filedocumented in this encounter
--- OUTSIDE RECORDS SUMMARY | 2025-05-20 17:21 | XMS_ITS | Encounter Summary ---
Author Organization [facility] Address [address] [place] [address] Care Team Providers Care Wedding Transportation Driver Name Role Phone Vaishali Zapata MD Primary Care Provider Bipin cheng Unallocated, Noms Provider Primary Care Provi krissy Encounter Details Date Type Department Care Team (Late st Contact Info) Description 06/29/2024 Abstract ARJUN PANG [address] [place] [address] Jose Rodriguez DO [address] [place], [place] [address] Social History Tobacco Use Types Packs/Day Years [...] 2:40 PM EDT Routine ARJUN PANG [address] [place] [address] Jose Rodriguez DO [address] [place], [facility] documented as of this encounter Visit Diagnoses Not on filedocumented in this encounter Care Teams Wedding Transportation Driver Relationship Specialty Start Date End Date Vaishali Zapata MD [address] [place] [address] PCP - General Family Medicine 02/04/23 08/02/24 Unallocated, Noms Provider, [address] [place] [address] PCP - General Family Medicine 08/03/24 documented as of this encounter
--- OUTSIDE RECORDS SUMMARY | 2025-05-20 17:21 | XMS_ITS | Encounter Summary ---
Author Organization [facility] Address [address] [place] [address] Care Team Providers Care Hvac Engineering Technician Name Role Phone Vaishali Zapata MD Primary Care Provider Bipin cheng Unallocated, Noms Provider Primary Care Provi kirssy Encounter Details Date Type Department Care Team (Late st Contact Info) Description 06/28/2024 Abstract ARJUN PANG [address] [place] [address] Jose Rodriguez DO [address] [place], [place] [address] Social History Tobacco Use Types Packs/Day Years [...] 2:40 PM EDT Routine ARJUN PANG [address] [place] [address] Jose Rodriguez DO [address] [place], [facility] documented as of this encounter Visit Diagnoses Not on filedocumented in this encounter Care Teams Hvac Engineering Technician Relationship Specialty Start Date End Date Vaishali Zapata MD [address] [place] [address] PCP - General Family Medicine 02/04/23 08/02/24 Unallocated, Noms Provider, [address] [place] [address] PCP - General Family Medicine 08/03/24 documented as of this encounter
--- OUTSIDE RECORDS SUMMARY | 2025-05-20 17:22 | XMS_ITS | Clinical Summary ---
Author Organization [employer] [facility] tem Address [id number] [address] [place] [address] Care Team Providers Care Family Intervention Specialist Name Role Phone Unavailable Primary Care Provider [...] PM EDT Support Visit [facility]- Medicine at [facility] [address] [place] [address] Marjorie Rico, RN [address]enia Ray[address] Gestational diabetes mellitus (GDM) in third trimester, gestational diabetes method of control unspecified 05/13/2025 Travel 05/10/2025 Abstract [facility]aternal- Medicine at [facility] [address] [place] [address] External, Scanning Provider from Last 3 Months [...] 06/04/2025 1:00 PM EDT Appointment [facility] - Ultrasound [address] [place] [address] Jose Rodriguez, DO [address] [facility] [address] [place] [place] [address] Health Maintenance Due Date Last Done Comments [...] ORDERABLES Final Resul t Performing Organization Address [facility] Co de Phone Number MANUALLY TRANSCRIBED RESULTS * 2nd hr Glucose Tolerance 100 gm load (05/04/2025) Glucose Tolerance Test 2 Hour 186 MANUALLY TRANSCRIBED RESULTS Blood Venous blood / Unknown us Not In System Ref Prov LAB BLOOD ORDERABLES Kayli l Result Performing Organization Address [facility] de Phone Number MANUALLY TRANSCRIBED RESULTS * Glucose tolerance, 1 hour (05/04/2025) Glucose Tolerance Test 1 Hour 234 MANUALLY TRANSCRIBED RESULTS Blood Venous blood / Unknown us Not In System Ref Prov LAB BLOOD ORDERABLES Kayli l Result Performing Organization Address [facility] Co de Phone Number MANUALLY TRANSCRIBED RESULTS * Glucose tolerance, 3 hours (05/04/2025) Glucose Tolerance Test 3 Hour 133 MANUALLY TRANSCRIBED RESULTS Blood Venous blood / Unknown us Not In System Ref Prov LAB BLOOD ORDERABLES Kayli l Result Performing Organization Address [facility] de Phone Number MANUALLY TRANSCRIBED RESULTS [...] TRANSCRIBED RESULTS from Last 3 Months Insurance [facility]
--- OUTSIDE RECORDS SUMMARY | 2025-05-20 17:22 | XMS_ITS | CCD ---
Author Organization [facility] Care Team Providers Care Rn Diabetes Name Role Phone MICHAEL ., DR MANN [...] ., DR MANN Attending Unavailable MISC, DR DOMINIQEU Primary Care Unavailable MICHAEL ., DR MANN [...] Unavailable MISC, DR DOMINIQUE Primary Care Unavailable [place], DR COCO Danielle Consulting Unavailable MICHAEL ., DR MANN Consulting Unavailable MICHAEL ., DR MANN Admitting Unavailable MICHAEL ., DR MANN Attending Unavailable MISC, DR DOMINIQUE Primary Care Unavailable MICHAEL ., DR MANN Consulting Unavailable MICHAEL ., DR MANN Admitting Unavailable MICHAEL ., DR MANN Attending Unavailable MISC, DR DOMINIQUE Primary Care Unavailable [place], DR COCO Danielle Consulting Unavailable MICHAEL ., [...] Referring Unavailable MICHAEL, JOSE Attending Unavailable ROSSANA LEACH Attending Unavailable MICHAEL, JOSE Attending Unavailable ROSSANA LEACH Attending Unavailable ROSSANA LEACH Attending Unavailable ROSSANA LEACH Attending Unavailable MICHAEL, JOSE Attending Unavailable MICHAEL, JOSE Attending Unavailable ROSSANA LEACH Attending Unavailable Medications [...] Glucose Monitoring Suppl (D-Care Glucometer) w/Device kit (7 sources) Start: 05-08-2025 End: 05-08-2026 Blood Glucose Monitoring Suppl (D-Care Glucometer) w/Device kit Indications: Gestational diabetes mellitus (GDM), antepartum, gestational diabetes method of control unspecified ([facility]) , Elevated glucose tolerance test 1 kit Daily Use four times daily to check FSBS. In the morning prior to breakfast & 1 hour after each meal for a total of 4times daily. 1 kit 05/08/2025 05/08/2026 Active isopropyl alcohol 0.7 ml/ml medicated pad (7 sources) Start: 05-08-2025 Alcohol Swabs (Alcohol Prep [...] ] Onset: 05-01-2022 Episodic Unclassified (1 source) [facility] SPCF DIS/COND COMPL ; Translations: [OT [...] [facility] Basophils/100 WBC (Bld) 0.1 % Low 0.2 - 2.0 % [facility] Eosinophils/100 WBC (Bld) 1.7 % 0.9 - 7.0 % [facility] Erythrocyte distribution width (RBC) [Ratio] 12.7 % 11.0 - 15.0 % [facility] Hematocrit (Bld) [Volume fraction] 38.1 % 36.0 - 48.0 % [facility] Hemoglobin (Bld) [Mass/Vol] 13.3 g/dL 12.0 - 16.0 g/dL [facility] IMMATURE GRANULOCYTES ABS AUTO 0.06 High [facility] Immature granulocytes/100 WBC (Bld) 0.4 % 0.0 - 0.5 % [facility] Interpretation and review of laboratory results Abnormal [facility] LYMPHOCYTES ABSOLUTE AUTO 1.4 [facility] Lymphocytes/100 WBC (Bld) 9 % Low 20.5 - 60.0 % [facility] MCH (RBC) [Entitic mass] 31.9 pg 26.7 - 34.0 pg [facility] MCHC (RBC) [Mass/Vol] 34.9 g/dL 29.9 - 35.2 g/dL [facility] MCV (RBC) [Entitic vol] 91.4 fL 81.0 - 99.0 fL [facility] MONOCYTES ABSOLUTE AUTO 0.7 [facility] Monocytes/100 WBC (Bld) 4.7 % 1.7 - 12.0 % [facility] NEUTROPHILS ABSOLUTE AUTO 12.6 High [facility] Neutrophils/100 WBC (Bld) 84.1 % High 43.0 - 75.0 % [facility] Platelet mean volume (Bld) [Entitic vol] 11.2 fL 9.5 - 13.5 fL [facility] TB[facility] EO # 0.3 [facility] PLT 223 [facility] RBC 4.17 Low [facility] WBC 15 High [facility] US OB BPP W NON-STRESS on 05-18-2025 [place] [id number] Ultrasound Report Signed Patient: VIMAL FUNES MR#: [id number] : 2000 Acct:[id number] Age/Sex: 25 / F ADM Date: 05/18/25 Loc: US Attending Dr: Rossana Leach Ordering Physician: Rossana Leach Date of Service: 05/18/25 Procedure(s): US OB BPP w non-stress Accession Number(s): [id number] cc: Rossana Leach; JENNIFER SEE The [address] [address] Patient Name: VIMAL FUNES MRN: [id number]:[id number] date: 2000 Sex: F Assigned Patient Location: [facility] Current Patient Location: Accession/Order Number: [id number] Exam Date: 05/18/2025 11:16 Report Date: 05/18/2025 17:08 At the request of: ROSSANA LEACH Procedure: [...] Acharya M.D. 05/18/2025 5:08 PM Dictation Location: [place] [address] Electronically authenticated by: [id number] Y Date: 05/18/2025 17:08 Dictated By: Heriberto Acharya M.D. Signed By: 05/18/252016 DD/ 07 TD/TT: Inspector Final Assembly Conveyor Line: [facility] Radiology, Radiologist, - 05/18/2025 [place] [address] Ultrasound Report Signed Patient: VIMAL FUNES MR#: [id number] : 2000 Acct:[id number] Age/Sex: 25 / F ADM Date: 05/18/25 Loc: US Attending Dr: Rossana Leach Ordering Physician: Rossana Leach Date of Service: 05/18/25 Procedure(s): US OB BPP w non-stress Accession Number(s): [id number] cc: Rossana Leach; JENNIFER SEE The [place] [id number] Patient Name: VIMAL FUNES MRN: [facility]:[id number] date: 2000 Sex: F Assigned Patient Location: [facility] Current Patient Location: Accession/Order Number: [id number] Exam Date: 05/18/2025 11:16 Report Date: 05/18/2025 17:08 At the request of: ROSSANA LEACH Procedure: [...] Acharya M.D. 05/18/2025 5:08 PM Dictation Location: [place] [address] Electronically authenticated by: [id number] Y Date: 05/18/2025 17:08 Dictated By: Heriberto Acharya M.D. Signed By: 05/18/252016 DD/ 07 TD/TT: Inspector Final Assembly Conveyor Line: [facility] Radiology Study observation (narrative) [facility] US OB BPP W NON-STRESS Ordered By: Radiologist Radiology on 05-18-2025 [facility] [employer] Work Phone: Glucose random or fasting- P OCTOrdered By: Sheridan Smallwood on 05-13-2025 External Glucose Fasting Or Random (Fbs) [address] [facility] US OB BPP W NON-STRESS on 05-11-2025 [place] [address] Ultrasound Report Signed Patient: VIMAL FUNES MR#: [id number] : 2000 Acct:[id number] Age/Sex: 25 / F ADM Date: 05/11/25 Loc: [facility] 253-[address]: Rossana Leach Ordering Physician: Rossana Leach Date of Service: 05/11/25 Procedure(s): US OB BPP w non-stress Accession Number(s): [id number] cc: JENNIFER Watkins [address] [address] Patient Name: VIMAL FUNES MRN: [facility]:[id number] date: 2000 Sex: F Assigned Patient Location: [facility] Current Patient Location: [facility] Accession/Order Number: [id number] Exam Date: 05/11/2025 12:01 Report Date: 05/11/2025 12:02 At the request of: ROSSANA LEACH Procedure: US OB BPP w non-stress Biophysical profile. Reason for exam: Gestational diabetes COMPARISON: 05/04/2025 TECHNIQUE: Transabdominal imaging of the gravid uterus was obtained. FINDINGS: The bilingual account manager reports a BPP of 8 out of 8. DANYA is normal at 11.9 cm. heart rate 138 bpm. US/US OB BPP w non-stress IMPRESSION: BPP 8 out of 8. Impression dictated by: Bulmaro Arias Jr., D.O. 05/11/2025 12:02 PM Dictation Location: [place] [address] Electronically authenticated by: [id number] Y Date: 05/11/2025 12:02 Dictated By: Bulmaro Arias M.D. Signed By: 05/11/25 1204 DD/ 1202 TD/TT: Inspector Final Assembly Conveyor Line: [facility] Radiology, Radiologist, - 05/11/2025 [place] [address] Ultrasound Report Signed Patient: VIMAL FUNES MR#: [id number] : 2000 Acct:[id number] Age/Sex: 25 / F ADM Date: 05/11/25 Loc: [facility] 253-[address]: Rossana Leach Ordering Physician: Rossana Leach Date of Service: 05/11/25 Procedure(s): US OB BPP w non-stress Accession Number(s): [id number] cc: JENNIFER Watkins [address] [address] Patient Name: VIMAL FUNES MRN: [id number]:[id number] date: 2000 Sex: F Assigned Patient Location: [facility] Current Patient Location: [facility] Accession/Order Number: [id number] Exam Date: 05/11/2025 12:01 Report Date: 05/11/2025 12:02 At the request of: ROSSANA LEACH Procedure: US OB BPP w non-stress Biophysical profile. Reason for exam: Gestational diabetes COMPARISON: 05/04/2025 TECHNIQUE: Transabdominal imaging of the gravid uterus was obtained. FINDINGS: The bilingual account manager reports a BPP of 8 out of 8. DANYA is normal at 11.9 cm. heart rate 138 bpm. US/US OB BPP w non-stress IMPRESSION: BPP 8 out of 8. Impression dictated by: Bulmaro Arias Jr., D.O. 05/11/2025 12:02 PM Dictation Location: [place] [address] Electronically authenticated by: [id number] Y Date: 05/11/2025 12:02 Dictated By: Bulmaro Arias M.D. Signed By: 05/11/25 1204 DD/ 1202 TD/TT: Inspector Final Assembly Conveyor Line: [facility] [employer] Radiology Study observation (narrative) [facility] US OB BPP W NON-STRESS Ordered By: Radiologist Radiology on 05-11-2025 [facility] [employer] Work Phone: TBH TOTAL PROTEIN 24 HOUR UR INEon 05-06-2025 TOTAL PROTEIN URINE RANDOM <6.0 NINF - 11.9 mg/dL [facility] [employer] TOTAL VOLUME 24 HOUR URINE 3700 mL/24hr [facility] [employer] [facility] [employer] 2nd hr Glucose Tolerance 100 gm loadon 05-04-2025 Glucose Tolerance Test 2 Hour 186 [facility] ALL CBC WITH AUTO DIFFon BASOPHILS ABSOLUTE AUTO 0 [facility] Basophils/100 WBC (Bld) 0.2 % 0.2 - 2.0 % [facility] Eosinophils/100 WBC (Bld) 2.6 % 0.9 - 7.0 % [facility] Erythrocyte distribution width (RBC) [Ratio] 12.7 % 11.0 - 15.0 % [facility] Hematocrit (Bld) [Volume fraction] 39.5 % 36.0 - 48.0 % [facility] Hemoglobin (Bld) [Mass/Vol] 13.7 g/dL 12.0 - 16.0 g/dL [facility] IMMATURE GRANULOCYTES ABS AUTO 0.05 High [facility] Immature granulocytes/100 WBC (Bld) 0.4 % 0.0 - 0.5 % [facility] Interpretation and review of laboratory results Abnormal [facility] LYMPHOCYTES ABSOLUTE AUTO 1.6 [facility] Lymphocytes/100 WBC (Bld) 12.6 % Low 20.5 - 60.0 % [facility] MCH (RBC) [Entitic mass] 31.9 pg 26.7 - 34.0 pg [facility] MCHC (RBC) [Mass/Vol] 34.7 g/dL 29.9 - 35.2 g/dL [facility] MCV (RBC) [Entitic vol] 92.1 fL 81.0 - 99.0 fL [facility] MONOCYTES ABSOLUTE AUTO 0.6 [facility] Monocytes/100 WBC (Bld) 5 % 1.7 - 12.0 % [facility] NEUTROPHILS ABSOLUTE AUTO 9.9 High [facility] Neutrophils/100 WBC (Bld) 79.2 % High 43.0 - 75.0 % [facility] Platelet mean volume (Bld) [Entitic vol] 11 fL 9.5 - 13.5 fL [facility] TBH EO # 0.3 [facility] TB PLT 226 [facility] TB RBC 4.29 [facility] WBC 12.5 High [facility] Glucose tolerance, 1 houron 05-04-2025 Glucose Tolerance Test 1 Hour 234 [facility] Glucose tolerance, 3 hourson 05-04-2025 Glucose Tolerance Test 3 Hour 133 [facility] Glucose, tolerance fastingon 05-04-2025 Glucose Tolerance Test Fasting 108 [facility] No Panel Informationon 05-04 [facility] US OB BPP W NON-STRESS on 05-04-[address] [address] Ultrasound Report Signed Patient: VIMAL FUNES MR#: [id number] : 2000 Acct:[id number] Age/Sex: 25 / F ADM Date: 05/04/25 Loc: [facility] 250-[address]: Rossana Leach Ordering Physician: Rossana Leach Date of Service: 05/04/25 Procedure(s): US OB BPP w non-stress Accession Number(s): [id number] cc: Rossana Leach; JENNIFER SEE The [place] [address] Patient Name: VIMAL FUNES MRN: [facility]:[id number] date: 2000 Sex: F Assigned Patient Location: [facility] Current Patient Location: [facility] Accession/Order Number: [id number] Exam Date: 05/04/2025 12:08 Report Date: 05/04/2025 12:09 At the request of: ROSSANA LEACH Procedure: US OB BPP w non-stress Biophysical profile. Reason for exam: Gestational diabetes COMPARISON: None TECHNIQUE: Transabdominal imaging of the gravid uterus was obtained. FINDINGS: The bilingual account manager reports a BPP of 8 out of 8. DANYA is normal at 12.4 cm. heart rate 150 bpm. US/US OB BPP w non-stress IMPRESSION: BPP 8 out of 8. Impression dictated by: Bulmaro Arias Jr., D.O. 05/04/2025 12:09 PM Dictation Location: [place] [address] Electronically authenticated by: [id number] Y Date: 05/04/2025 12:09 Dictated By: Bulmaro Arias M.D. Signed By: 05/04/25 1212 DD/ 1209 TD/TT: Inspector Final Assembly Conveyor Line: [facility] Radiology, Radiologist, MD - 05/04/2025 [place] [address] Ultrasound Report Signed Patient: VIMAL FUNES MR#: [id number] : 2000 Acct:[id number] Age/Sex: 25 / F ADM Date: 05/04/25 Loc: [facility] 250-[address]: Rossana Leach Ordering Physician: Rossana Leach Date of Service: 05/04/25 Procedure(s): US OB BPP w non-stress Accession Number(s): [id number] cc: Rossana Leach; JENNIFER SEE [place] [id number] Patient Name: VIMAL FUNES MRN: [id number]:[id number] date: 2000 Sex: F Assigned Patient Location: [facility] Current Patient Location: [facility] Accession/Order Number: [id number] Exam Date: 05/04/2025 12:08 Report Date: 05/04/2025 12:09 At the request of: ROSSANA LEACH Procedure: US OB BPP w non-stress Biophysical profile. Reason for exam: Gestational diabetes COMPARISON: None TECHNIQUE: Transabdominal imaging of the gravid uterus was obtained. FINDINGS: The bilingual account manager reports a BPP of 8 out of 8. DANYA is normal at 12.4 cm. heart rate 150 bpm. US/US OB BPP w non-stress IMPRESSION: BPP 8 out of 8. Impression dictated by: Bulmaro Arias Jr., D.O. 05/04/2025 12:09 PM Dictation Location: [place] [address] Electronically authenticated by: [id number] Y Date: 05/04/2025 12:09 Dictated By: Bulmaro Arias M.D. Signed By: 05/04/25 1212 DD/ 1209 TD/TT: Inspector Final Assembly Conveyor Line: [facility] Radiology Study observation (narrative) [facility] US OB BPP W NON-STRESS Ordered By: Radiologist Radiology on 05-04-2025 [facility] Work Phone: US OB GROWTHon 05-04-[address] [address] Ultrasound Report Signed Patient: VIMAL FUNES MR#: [id number] : 2000 Acct:[id number] Age/Sex: 25 / F ADM Date: 05/04/25 Loc: [facility] 250-[address]: Rossana Leach Ordering Physician: Rossana Leach Date of Service: 05/04/25 Procedure(s): US OB growth Accession Number(s): [id number] cc: JENNIFER Watkins [place] [address] Patient Name: VIMAL FUNES MRN: [facility]:[id number] date: 2000 Sex: F Assigned Patient Location: [facility] Current Patient Location: [facility] Accession/Order Number: [id number] Exam Date: 05/04/2025 12:06 Report Date: 05/04/2025 [...] Jr., D.O. 05/04/2025 12:08 PM Dictation Location: [place] [address] Electronically authenticated by: [id number] Y Date: 05/04/2025 12:08 Dictated By: Bulmaro Arias M.D. Signed By: 05/04/25 1211 DD/ 1208 TD/TT: Inspector Final Assembly Conveyor Line: [facility] Radiology, Radiologist, MD - 05/04/2025 [place] [address] Ultrasound Report Signed Patient: VIMAL FUNES MR#: [id number] : 2000 Acct:[id number] Age/Sex: 25 / F ADM Date: 05/04/25 Loc: [facility] 250-[address]: Rossana Leach Ordering Physician: Rossana Leach Date of Service: 05/04/25 Procedure(s): US OB growth Accession Number(s): [id number] cc: JENNIFER Watkins [address] [address] Patient Name: VIMAL FUNES MRN: [id number]:[id number] date: 2000 Sex: F Assigned Patient Location: [facility] Current Patient Location: [facility] Accession/Order Number: [id number] Exam Date: 05/04/2025 12:06 Report Date: 05/04/2025 [...] Jr., D.O. 05/04/2025 12:08 PM Dictation Location: [place] Electronically authenticated by: [id number] Y Date: 05/04/2025 12:08 Dictated By: Bulmaro Arias M.D. Signed By: 05/04/25 1211 DD/ 1208 TD/TT: Inspector Final Assembly Conveyor Line: [facility] Radiology Study observation (narrative) [facility] US OB GROWTHOrdered By: Jeimy ologwilly Radiology on 05-04-2025 [facility] [employer] Work Phone: Urinalysis macro (dipstick) panel (U)on 04-30-2025 Bilirubin, UA Negative Negative - 4(70) +++ mg/dL [facility] Blood, UA Negative Negative - 50 Jason/mcL [facility] Clarity, UA Clear [facility] Health[facility] re Color, UA Yellow [facility] [employer] Glucose, UA Positive Negative - 2000(110) ++++ mg/dL [facility] Interpretation and review of laboratory results Abnormal [facility] Ketones, UA Negative Negative - 160(16) ++++ mg/dL [facility] Leukocytes, UA Positive Negative - 500+++ Carlos/mcL [facility] Nitrite, UA Negative Negative - Positive [facility] pH, UA 6 5 - 9 [facility] Protein, UA Negative Negative - 2000(20) ++++ mg/dL [facility] Spec Grav, UA 1.01 1 - 1.03 [facility] Urobilinogen, UA 1.0 0.2 - 12 mg/dL [facility] ALL CBC WITH AUTO DIFFon BASOPHILS ABSOLUTE AUTO 0 [facility] Basophils/100 WBC (Bld) 0.2 % 0.2 - 2.0 % [facility] Eosinophils/100 WBC (Bld) 2.2 % 0.9 - 7.0 % [facility] Erythrocyte distribution width (RBC) [Ratio] 12.9 % 11.0 - 15.0 % [facility] Hematocrit (Bld) [Volume fraction] 40 % 36.0 - 48.0 % [facility] Hemoglobin (Bld) [Mass/Vol] 13.6 g/dL 12.0 - 16.0 g/dL [facility] IMMATURE GRANULOCYTES ABS AUTO 0.04 High [facility] Immature granulocytes/100 WBC (Bld) 0.3 % 0.0 - 0.5 % [facility] Interpretation and review of laboratory results Abnormal [facility] LYMPHOCYTES ABSOLUTE AUTO 1.4 [facility] Lymphocytes/100 WBC (Bld) 10.8 % Low 20.5 - 60.0 % [facility] MCH (RBC) [Entitic mass] 31.7 pg 26.7 - 34.0 pg [facility] MCHC (RBC) [Mass/Vol] 34 g/dL 29.9 - 35.2 g/dL [facility] MCV (RBC) [Entitic vol] 93.2 fL 81.0 - 99.0 fL [facility] MONOCYTES ABSOLUTE AUTO 0.5 [facility] Monocytes/100 WBC (Bld) 4.3 % 1.7 - 12.0 % [facility] NEUTROPHILS ABSOLUTE AUTO 10.2 High [facility] Neutrophils/100 WBC (Bld) 82.2 % High 43.0 - 75.0 % [facility] Platelet mean volume (Bld) [Entitic vol] 10.6 fL 9.5 - 13.5 fL [facility] TBH EO # 0.3 [facility] TB[facility] PLT 202 [facility] RBC 4.29 [facility] WBC 12.5 High [facility] Glucose 1h post 50g loadon 0 04-27-2025 Glucose, 1 hr PP 50GM dose 171 [facility] No Panel Informationon 04-27 [facility] [...] Healthcare Nitrite, UA Negative Negative - Positive [facility] pH, UA 6.5 5 - 9 [facility] Health[facility] Protein, UA Negative Negative - 1999(20) ++++ mg/dL [facility] Spec Grav, UA 1.01 1 - 1.03 [facility] Urobilinogen, UA 0.2 0.2 - 12 mg/dL [facility] Urinalysis macro (dipstick) panel (U)on 04-11-2025 Bilirubin, UA Negative Negative - 4(70) +++ mg/dL [facility] Blood, UA Negative Negative - 50 Jason/mcL [facility] Healthcare Clarity, UA Clear [facility] Color, UA Yellow [facility] Glucose, UA Negative Negative - 1999(110) ++++ mg/dL [facility] Interpretation and review of laboratory results Normal [facility] Ketones, UA Negative Negative - 160(16) ++++ mg/dL [facility] Leukocytes, UA Negative Negative - 500+++ Carlos/mcL [facility] Healthcare Nitrite, UA Negative Negative - Positive [facility] pH, UA 7 5 - 9 [facility] Protein, UA Negative Negative - 1999(20) ++++ mg/dL [facility] Healthcare Spec Grav, UA 1.005 1 - 1.03 [facility] Urobilinogen, UA 1.0 0.2 - 12 mg/dL [facility] US OB INCOMPLETE ANATOMYon 0 03-25-[address] [address] Ultrasound Report Signed Patient: VIMAL FUNES MR#: [id number] : 2000 Acct:[id number] Age/Sex: 24 / F ADM Date: 03/23/25 Loc: US Attending Dr: Jose Rodriguez D.O. Ordering Physician: Jose Rodriguez D.O. Date of Service: 03/23/25 Procedure(s): US OB incomplete anatomy Accession Number(s): [id number] cc: JENNIFER SEE ; Jose Rodriguez D.O. [address] [address] Patient Name: VIMAL FUNES MRN: [id number] date: 2000 Sex: F Assigned Patient Location: US Current Patient Location: US Accession/Order Number: [id number] Exam Date: 03/25/2025 08:23 Report Date: 03/25/2025 [...] Brown M.D. 03/25/2025 8:25 AM Dictation Location: [place] [address] Electronically authenticated by: [id number] Y Date: 03/25/2025 08:25 Dictated By: Meghana Brown M.D. Signed By: 03/25/25826 DD/ 4 TD/TT: Inspector Final Assembly Conveyor Line: [facility] Radiology, Radiologist, - 03/25/[address] [address] Ultrasound Report Signed Patient: VIMAL FUNES MR#: [id number] : 2000 Acct:[id number] Age/Sex: 24 / F ADM Date: 03/23/25 Loc: US Attending Dr: Jose Rodriguez D.O. Ordering Physician: Jose Rodriguez D.O. Date of Service: 03/23/25 Procedure(s): US OB incomplete anatomy Accession Number(s): [id number] cc: JENNIFER SEE ; Jose Rodriguez D.O. The [address] [address] Patient Name: VIMAL FUNES MRN: [facility]:[id number] date: 2000 Sex: F Assigned Patient Location: US Current Patient Location: US Accession/Order Number: [id number] Exam Date: 03/25/2025 08:23 Report Date: 03/25/2025 [...] Brown M.D. 03/25/2025 8:25 AM Dictation Location: [place] [address] Electronically authenticated by: [id number] Y Date: 03/25/2025 08:25 Dictated By: Meghana Brown M.D. Signed By: 03/25/25826 DD/ 4 TD/TT: Inspector Final Assembly Conveyor Line: [facility] Radiology Study observation (narrative) [facility] US OB INCOMPLETE ANATOMYOrde red By: Radiologist Radiology on 03-25-2025 [facility] Work Phone: Urinalysis macro (dipstick) panel (U)on 03-14-2025 Bilirubin, UA Negative Negative - 4(70) +++ mg/dL [facility] Blood, UA Negative Negative - 50 Jason/mcL [facility] Clarity, UA Clear [facility] Healthmi re Color, UA Yellow [facility] Glucose, UA Negative Negative - 1999(110) ++++ mg/dL [facility] Interpretation and review of laboratory results Normal [facility] Ketones, UA Negative Negative - 160(16) ++++ mg/dL [facility] Leukocytes, UA Negative Negative - 500+++ Carlos/mcL [facility] Nitrite, UA Negative Negative - Positive [facility] pH, UA 7 5 - 9 [facility] Protein, UA Negative Negative - 1999(20) ++++ mg/dL [facility] Spec Grav, UA 1.01 1 - 1.03 [facility] Urobilinogen, UA 0.2 0.2 - 12 mg/dL [facility] No Panel InformationOrdered By: Radiologist Radiology on 03-08-2025 [facility] [employer] Work Phone: No Panel Informationon 03-08 Radiology Study observation (narrative) [facility] US OB ANATOMYon 03-08-2025 [place] [address] Ultrasound Report Signed Patient: VIMAL FUNES MR#: [id number] : 2000 Acct:[id number] Age/Sex: 24 / F ADM Date: 03/08/25 Loc: US Attending Dr: Jose Rodriguez D.O. Ordering Physician: Jose Rodriguez D.O. Date of Service: 03/08/25 Procedure(s): US OB anatomy Accession Number(s): [id number] cc: JENNIFER SEE ; Jose Rodriguez D.O. The [place] [id number] Patient Name: VIMAL FUNES MRN: [facility]:[id number] date: 2000 Sex: F Assigned Patient Location: Current Patient Location: Accession/Order Number: [id number] Exam Date: 03/08/2025 20:31 Report Date: 03/08/2025 [...] Knapp M.D. 03/08/2025 8:36 PM Dictation Location: [place] [address] Electronically authenticated by: [id number] Y Date: 03/08/2025 20:36 Dictated By: Shivam Knapp D.O. Signed By: 03/08/252037 DD/ 35 TD/TT: Inspector Final Assembly Conveyor Line: [facility] Radiology, Radiologist, - 03/08/2025 [place] [address] Ultrasound Report Signed Patient: VIMAL FUNES MR#: [id number] : 2000 Acct:[id number] Age/Sex: 24 / F ADM Date: 03/08/25 Loc: US Attending Dr: Jose Rodriguez D.O. Ordering Physician: Jose Rodriguez D.O. Date of Service: 03/08/25 Procedure(s): US OB anatomy Accession Number(s): [id number] cc: JENNIFER SEE ; Jose Rodriguez D.O. [place] [id number] Patient Name: VIMAL FUNES MRN: [id number]:[id number] date: 2000 Sex: F Assigned Patient Location: US Current Patient Location: US Accession/Order Number: [id number] Exam Date: 03/08/2025 20:31 Report Date: 03/08/2025 [...] Knapp M.D. 03/08/2025 8:36 PM Dictation Location: [employer] Electronically authenticated by: [id number] Y Date: 03/08/2025 20:36 Dictated By: Shivam Knapp D.O. Signed By: 03/08/252037 DD/ 35 TD/TT: Inspector Final Assembly Conveyor Line: ARJUN [facility] US OB CERVICAL LENGTHon 02-[address] [address] Ultrasound Report Signed Patient: VIMAL FUNES MR#: [id number] : 2000 Acct:[id number] Age/Sex: 24 / F ADM Date: 03/08/25 Loc: US Attending Dr: Jose Rodriguez D.O. Ordering Physician: Jose Rodriguez D.O. Date of Service: 03/08/25 Procedure(s): US OB cervical length Accession Number(s): [id number] cc: JENNIFER SEE ; Jose Rodriguez D.O. [place] [id number] Patient Name: VIMAL FUNES MRN: [facility]:[id number] date: 2000 Sex: F Assigned Patient Location: US Current Patient Location: US Accession/Order Number: [id number] Exam Date: 03/08/2025 20:31 Report Date: 03/08/2025 [...] Knapp M.D. 03/08/2025 8:36 PM Dictation Location: [place] [address] Electronically authenticated by: [id number] Date: 03/08/2025 20:36 Dictated By: Shivam Knapp D.O. Signed By: 03/08/252037 DD/ 35 TD/TT: Inspector Final Assembly Conveyor Line: [facility] Radiology, Radiologist, MD - 03/08/2025 [place] [address] Ultrasound Report Signed Patient: VIMAL FUNES MR#: [id number] : 2000 Acct:[id number] Age/Sex: 24 / F ADM Date: 03/08/25 Loc: US Attending Dr: Jose Rodriguez D.O. Ordering Physician: Jose Rodriguez D.O. Date of Service: 03/08/25 Procedure(s): US OB cervical length Accession Number(s): [id number] cc: JENNIFER SEE ; Jose Rodriguez D.O. The [place] [address] Patient Name: VIMAL FUNES MRN: [facility]:[id number] date: 2000 Sex: F Assigned Patient Location: US Current Patient Location: US Accession/Order Number: [id number] Exam Date: 03/08/2025 20:31 Report Date: 03/08/2025 [...] Knapp M.D. 03/08/2025 8:36 PM Dictation Location: [facility] [employer] Electronically authenticated by: [id number] Y Date: 03/08/2025 20:36 Dictated By: Shivam Knapp D.O. Signed By: 03/08/252037 DD/ 35 TD/TT: Inspector Final Assembly Conveyor Line: ARJUN Martinez IGP,APTIMA HPV,AGE GDLNon AGE GDLN ACOG TESTING Note . RUTH [facility] Comment on above: TESTS RESULT FLAG UN ITS REF RANGE LAB Clinician Provided Cytology Information Source.............Endocervix No. of containers..01 ThinPrep Vial Age Algo ACOG Yris... -24 10 FLAG LEGEND: L-Low Normal,H-High Normal,LL-Alert Low,HH-Alert High <-Panic Low,>-Panic High,A-Abnormal,AA-Critical Abnormal Performed at: 01 =G [facility] [address] [place] [address] Jenise Byrne MD, IGP, RFX APTIMA HPV ASCU Note . [facility] Comment on above: TESTS RESULT FLAG UN ITS REF RANGE LAB DIAGNOSIS: 02 NEGATIVE FOR INTRAEPITHELIAL LESION OR MALIGNANCY. Specimen adequacy: 02 Satisfactory for evaluation. Endocervical and/or squamous metaplastic cells (endocervical component) are present. Performed by: Hussein Alvarez, Scheduling Manager ([facility]) . 02 Note: Note 02 [...] High,A-Abnormal,AA-Critical Abnormal Performed at: 02 WB [facility] [address], [place] [address] Jenise Byrne MD, Performed at: =G - [address] [id number] Test Man: Jenise Byrne MD, Phone: [phone] [facility]formed [facility]: [facility] [id number] Test Man: Jenise Byrne MD, Phone: [phone] SPATULA-ALONE ENDOCERVIX CLINIS[facility]NC [facility] RECURRENT VAGINITIS (HTRX)on 02-22-2025 ATOPOBIUM VAGINAE 0 [facility] ATOPOBIUM VAGINAE Not detected [facility] BVAB 2,3 (BACTERIAL VAGINOSIS ASSOCIATED BACTERIA 2, 3); MOBILUNCUS SPP 0 [facility] BVAB 2,3 (BACTERIAL VAGINOSIS ASSOCIATED BACTERIA 2, 3); MOBILUNCUS SPP Not detected [facility] SIMEON ALBICANS, PARAPSILOSIS, TROPICALIS 0 [facility] SIMEON ALBICANS, PARAPSILOSIS, TROPICALIS Not detected [facility] SIMEON GLABRATA 0 [facility] Hea lthcare SIMEON GLABRATA Not detected [facility] ealthcare SIMEON KRUSEI 0 [facility] SIMEON KRUSEI Not detected [facility] CHLAMYDIA TRACHOMATIS 0 [facility] S [facility] CHLAMYDIA TRACHOMATIS Not detected N [facility] GARDNERELLA VAGINALIS 0 [facility] GARDNERELLA VAGINALIS Not detected N [facility] MEGASPHAERA (TYPES 1, 2) 0 [facility] MEGASPHAERA (TYPES 1, 2) Not detected [facility] MYCOPLASMA GENITALIUM 0 [facility] S [facility] MYCOPLASMA GENITALIUM Not detected N [facility] NEISSERIA GONORRHOEAE 0 [facility] NEISSERIA GONORRHOEAE Not detected N [facility] TRICHOMONAS VAGINALIS 0 [facility] S [facility] TRICHOMONAS VAGINALIS Not detected N S Healthcare [facility] Healthcar e Urinalysis macro (dipstick) panel (U)on 02-20-2025 Bilirubin, UA Negative Negative - 4(70) +++ mg/dL [facility] Blood, UA Negative Negative - 50 Jason/mcL [facility] Clarity, UA Clear [facility] re Color, UA Yellow [facility] Glucose, UA Negative Negative - 2000(110) ++++ mg/dL [facility] Interpretation and review of laboratory results Abnormal [facility] Ketones, UA Negative Negative - 160(16) ++++ mg/dL [facility] Leukocytes, UA Negative Negative - 500+++ Carlos/mcL [facility] Nitrite, UA Negative Negative - Positive [facility] pH, UA 7 5 - 9 [facility] Healthcar e Protein, UA Negative Negative - 1999(20) ++++ mg/dL [facility] Spec Grav, UA 1.01 1 - 1.03 [facility] Urobilinogen, UA 0.2 0.2 - 12 mg/dL [facility] Unlisted Lab Teston 01-16-20 [facility] Urinalysis macro (dipstick) panel (U)on 01-14-2025 Bilirubin, UA Negative Negative - 4(70) +++ mg/dL [facility] Blood, UA Positive Negative - 50 Jason/mcL [facility] Comment on above: trace-intact Clarity, UA Clear [facility] re Color, UA Yellow [facility] [...] Systems pH, UA 6 5 - 9 [facility] Healthcar e Protein, UA Negative Negative - 1999(20) ++++ mg/dL [facility] Spec Grav, UA 1.005 1 - 1.03 [facility] Urobilinogen, UA 0.2 0.2 - 12 mg/dL [facility] Free Cell DNA (Non-Pro Medica Send Out)on 01-13-2025 [facility] ALL CBC WITH AUTO DIFFon BASOPHILS [...] fraction] 42.5 % 36.0 - 48.0 % [facility] Hemoglobin (Bld) [Mass/Vol] 14.7 g/dL 12.0 - [...] vol] 10.1 fL 9.5 - 13.5 fL [facility] TBH EO # 0.2 [facility] TB PLT 216 [facility] TB RBC 4.65 [facility] Healthcar e TBH WBC 9.2 [facility] Healthcar e CLINISYNC Hemoglobin A1con 01-05-2025 HbA1c (Bld) [Mass fraction] 5 % 4.0 - 6.0 % [facility] No Panel Informationon 01-05 [facility] Healthcar e US OB TRANSVAGINALon 025 [...] II, MD, PHD at 14-Dec-2024 08:35:59 PM [facility] Normal Not Available Comment on above: Order Comment: US OB TRANSVAGINAL No LMP recorded. TBH PREG QUANT HCGon 025 HCG QUANTITATIVE [address]7030 mIU/mL [facility] Comment on above: 5-50 0.2-1 WEEK 50-500 1-2 WEEKS 100-5,000 2-3 WEEKS 500-10,000 3-4 WEEKS 1,000-50,000 4-5 WEEKS 10,000-100,000 5-6 WEEKS 15,000-200,000 6-8 WEEKS 10,000-100,000 2-3 [facility] TBH PREG QUANT HCGon 025 HCG QUANTITATIVE 6254 mIU/mL [facility] ltare Comment on above: 5-50 0.2-1 WEEK 50-500 1-2 WEEKS 100-5,000 2-3 WEEKS 500-10,000 3-4 WEEKS 1,000-50,000 4-5 WEEKS 10,000-100,000 5-6 WEEKS 15,000-200,000 6-8 WEEKS 10,000-100,000 2-3 [facility] TBH PREG QUANT HCGon 024 HCG QUANTITATIVE 6 mIU/mL [facility] ltare Comment on above: 5-50 0.2-1 WEEK 50-500 1-2 WEEKS 100-5,000 2-3 WEEKS 500-10,000 3-4 WEEKS 1,000-50,000 4-5 WEEKS 10,000-100,000 5-6 WEEKS 15,000-200,000 6-8 WEEKS 10,000-100,000 2-3 MONTHS [facility] Healthcar e ALL CBC WITH AUTO DIFFon BASOPHILS ABSOLUTE AUTO 0 [facility] Basophils/100 WBC (Bld) 0.5 % 0.2 - 2.0 % [facility] Eosinophils/100 WBC (Bld) 6.2 % 0.9 - 7.0 % [facility] Erythrocyte distribution width (RBC) [Ratio] 11.9 % 11.0 - 15.0 % [facility] Hematocrit (Bld) [Volume fraction] 43.8 % 36.0 - 48.0 % [facility] Hemoglobin (Bld) [Mass/Vol] 14.8 g/dL 12.0 - [...] 10 fL 9.5 - 13.5 fL [facility] EO # 0.6 [facility] TBH PLT 236 [facility] TB RBC 4.67 [facility] WBC 8.9 [facility] [place] 08-10-2024 L Specimen: [id number] Received: 08/10/24 Status: CAROL Hoang Num: [id number] Spec Type: Surgical Subm Dr: Jose Rodriguez Tissues: A Products of Conception - Spontaneous or Missed (CONTENTS OF CONCEPT Procedures: HE/2, Gross/Micro L4 Age/ Patient Sex Location Account Attending Physician Vimal Funes / LABELL [id number] Jose Rodriguez SPEC NUM: [id number] RECD: 08/10/24 STATUS: CAROL HOANG NUM: [id number] CAROLIN: 08/10/24-1001 [facility] : Jose Rodriguez ENTERED: 08/10/[address]: [place],Lab SPEC TYPE: Surgical DEPT: MONICA ALTMAN ENTERED BY: [id number] RECV BY: [id number] ORDERED: HE/2, Gross/Micro L4 ORDERED: HE/2, Gross/Micro [...] villi and decidua. No tissue is identified. Visual Aid Expert sections of the chorionic villi are submitted in cassette A1 with environmental marketing representative sections of the decidua is submitted in cassette A2. (2, ss, [id number]) CPT Codes 94826 Specimen: [id number] Received: 08/10/24 Status: CAROL Hoang Num: [id number] Spec Type: Surgical Subm Dr: Jose Rodriguez Tissues: A Products of Conception - Spontaneous or Missed (CONTENTS OF CONCEPT Procedures: 2, Gross/Micro L4 Patient: Vimal Funes [id number] (Continued) Signed (signature on file) Josh Aragon MD 08/13/24 5977 Normal [facility] TB PREG QUANT HCGon 024 HCG QUANTITATIVE 240 mIU/mL [facility] lthcare Comment on above: 5-50 0.2-1 WEEK 50-500 1-2 WEEKS 100-5,000 2-3 WEEKS 500-10,000 3-4 WEEKS 1,000-50,000 4-5 WEEKS 10,000-100,000 5-6 WEEKS 15,000-200,000 6-8 WEEKS 10,000-100,000 2-3 MONTHS CLINISYNC [facility] Healthcar e ALL CBC WITH AUTO DIFFon BASOPHILS ABSOLUTE AUTO 0.1 [facility] Basophils/100 WBC (Bld) 0.5 % 0.2 - 2.0 % [facility] Eosinophils/100 WBC (Bld) 2.8 % 0.9 - 7.0 % [facility] Erythrocyte distribution width (RBC) [Ratio] 11.9 % 11.0 - 15.0 % [facility] Hematocrit (Bld) [Volume fraction] 44.7 % 36.0 - 48.0 % [facility] Hemoglobin (Bld) [Mass/Vol] 15.3 g/dL 12.0 - 16.0 g/dL [facility] IMMATURE GRANULOCYTES ABS AUTO 0.03 [facility] Immature granulocytes/100 WBC (Bld) 0.3 % 0.0 - 0.5 % [facility] Interpretation and review of laboratory results Abnormal [facility] LYMPHOCYTES ABSOLUTE AUTO 1.6 [facility] Lymphocytes/100 WBC (Bld) 14.9 % Low 20.5 - 60.0 % [facility] MCH (RBC) [Entitic mass] 31.7 pg 26.7 - 34.0 pg [facility] MCHC (RBC) [Mass/Vol] 34.2 g/dL 29.9 - 35.2 g/dL [facility] MCV (RBC) [Entitic vol] 92.7 fL 81.0 - 99.0 fL [facility] MONOCYTES ABSOLUTE AUTO 0.4 [facility] Monocytes/100 WBC (Bld) 3.7 % 1.7 - 12.0 % [facility] NEUTROPHILS ABSOLUTE AUTO 8.2 High [facility] Neutrophils/100 WBC (Bld) 77.8 % High 43.0 - 75.0 % [facility] Platelet mean volume (Bld) [Entitic vol] 10 fL 9.5 - 13.5 fL [facility] TBH EO # 0.3 [facility] TBH PLT 263 [facility] RBC 4.82 [facility] WBC 10.6 [facility] Healthcar e CLINISYNC No Panel Informationon 07-21 [facility] Healthcar e TBH DRUG SCREEN RAPID (URINE )on 07-21-2024 AMPHETAMINE SCREEN URINE Negative NEGATIVE [facility] BARBITURATES SCREEN URINE Negative NEGATIVE [facility] Healthcare BENZODIAZEPINES SCREEN URINE Negative NEGATIVE [facility] Healthcare BUPRENORPHINE SCREEN URINE Negative NEGATIVE [facility] Healthcare Comment on above: DRUG CLASS TEST [...] [facility] Preg Test, Ur Positive [facility] Urinalysis macro (dipstick) panel (U)on 06-29-2024 Bilirubin, UA Negative Negative - (70) +++ mg/dL [facility] Blood, UA Negative Negative - 50 Jason/mcL [facility] Clarity, UA Clear [facility] Healthca [...] Systems pH, UA 7.0 5 - 9 [facility] Healthcar e Protein, UA Negative Negative - 1999(20) ++++ mg/dL [facility] Spec Grav, UA 1.015 1 - 1.03 [facility] Urobilinogen, UA 0.2 0.2 - 12 mg/dL [facility] XR hand RT min 3V*on 023 XR hand RT min 3V* [facility] [employer] Other XR hand RT min 3V* [facility] [employer] Other XR hand RT min 3V* [address] [place] [address] [employer] Other XR hand RT min 3V* [place] [address] [employer] Other XR hand RT min 3V* XRay Report [employer] Other XR hand RT min 3V* Signed [employer] Other XR hand RT min 3V* Patient: Vimal Funes MR#: [id number] [employer] Other XR hand RT min 3V* 18 [employer] Other XR hand RT min 3V* : 2000 Acct:[id number] [employer] Other XR hand RT min 3V* Age/Sex: 22 / F ADM Date: 12/26/22 [employer] Other XR hand RT min 3V* Loc: XDUCLY Room: Type: [facility] [employer] Other XR hand RT min 3V* Attending Dr: Jennifer GIL [employer] Other XR hand RT min 3V* Copies to: JEFFERY Rodriguez [employer] Other XR hand RT min 3V* Ordering Provider: JEFFERY Rodriguez [employer] Other XR hand RT min 3V* Date of Service: 12/26/22 [employer] Other XR hand RT min 3V* XR/XR hand RT min 3V*: RIGHT HAND INJURY [employer] Other XR hand RT min 3V* RIGHT HAND - 4 views [employer] Other XR hand RT min 3V* REASON FOR EXAM: Patient had right thumb hyperextended yesterday when trying to open the door. Now [employer] Other XR hand RT min 3V* with pain. [employer] Other XR hand RT min 3V* COMPARISON: None [employer] Other XR hand RT min 3V* FINDINGS: [employer] Other XR hand RT min 3V* No focal soft tissue abnormality. There appears to be avulsion fracture involving the base of the [employer] Other XR hand RT min 3V* distal phalanx of the thumb. Joint spaces appear maintained. No bony erosions. [employer] Other XR hand RT min 3V* XR/XR hand RT min 3V* [employer] Other XR hand RT min 3V* IMPRESSION: [employer] Other XR hand RT min 3V* AVULSION FRACTURE INVOLVING THE BASE OF THE DISTAL PHALANX OF THE THUMB. [employer] Other XR hand RT min 3V* Impression dictated by: Bulmaro Arias Jr., D.O.12/26/2022 1:44 PM [employer] Other XR hand RT min 3V* Dictation Location: [facility] [employer] Other XR hand RT min 3V* Transcribed By: PWS 12/26/22 [facility] [employer] Other XR hand RT min 3V* Dictated By: Bulmaro Arias Jr, DO 12/26/22 [facility] [employer] Other XR hand RT min 3V* Signed By: [employer] Other XR hand RT min 3V* 12/26/[address] [place] [address] [employer] Other PAP ACOG PANEL 2: 22 to 30on 11-09-2022 . . Normal [facility] Comment on above: Performed By: #### [id number] ####[facility] [address] [place] [address]DrGene Mancini Age Gdln ACOG Testing 21-29 Normal [facility] Comment on above: Performed By: #### 4 [id number] ####[facility] [address] [place] [address]DrGene Mancini DIAGNOSIS: Comment Normal [facility] Comment on above: Result Comment: NEGA TIVE FOR INTRAEPITHELIAL LESION OR MALIGNANCY. Performed By: #### 4 [id number] ####[facility] [address] [place] [address]DrGene Mancini Methodology: Comment Normal [facility] Comment on above: Result Comment: This liquid based ThinPrep(R) pap test was screened with the use of an image guided system. Performed By: #### 4 [id number] ####[facility] [address] [place] [address]DrGene Mancini Note: Comment Normal [facility] Comment on above: Result Comment: The Pap smear is a screening test designed to aid in the detection of premalignant and malignant conditions of the uterine cervix. It is not a diagnostic procedure and should not be used as the sole means of detecting cervical cancer. Both false-positive and false-negative reports do occur. . Performed By: #### 4 [id number] ####[facility] [address] [place], [place] [address]DrGene Mancini Performed by: Comment Normal [facility] Comment on above: Result Comment: Zuleima Lin, Food And Beverage Operations Manager (ASCP) Performed By: #### 4 [id number] ####[facility] [address] [place] [address]DrGene Mancini Reflex Criteria: Comment Normal [facility] Comment on above: Result Comment: The HPV DNA reflex criteria were not met with this specimen result therefore, no HPV testing was performed. . Performed By: #### 4 [id number] ####[facility] [address] [place], [place] [address]DrGene Mancini Specimen adequacy: Comment Normal [facility] Comment on above: Result Comment: Sati sfactory for evaluation. Endocervical and/or squamous metaplastic cells (endocervical component) are present. Performed By: #### 4 [id number] ####[facility] [address] [place] [address]DrGene Mancini Cytology Cervical or vaginal smear or scraping studyOrdered By: Jael Nix on 11-02-2022 [facility] CBC AUTO DIFFon 08-11-2022 BASO # 0.0 103/ul Normal 0.0-0.1 [facility] Comment on above: Performed By: #### C T/NGNA #### [facility] [address] [place] [address] [address] Donis Mancini Basophils/100 WBC (Bld) 0.2 % Normal 0.2-2.0 [facility] Comment on above: Performed By: #### C T/NGNA #### [facility] [address] [place] [address] Dr. Donis Mancini EO # 0.1 103/ul Normal 0.0-0.7 [facility] Comment on above: Performed By: #### C T/NGNA #### [facility] [address] [place] [address] Dr. Donis Mancini Eosinophils/100 WBC (Bld) 0.5 % Critically low 0.9-7.0 [facility] Comment on above: Performed By: #### C T/NGNA #### [facility] [address] [place] [address] Dr. Donis Mancini Erythrocyte distribution width (RBC) [Ratio] 12.5 % Normal 11.0-15.0 [facility] Comment on above: Performed By: #### C T/NGNA #### [facility] [address] [place] [address] Dr. Donis Mancini Hematocrit (Bld) [Volume fraction] 35.9 % Critically low 36.0-48.0 [facility] Comment on above: Performed By: #### C T/NGNA #### [facility] [address] [place] [address] Dr. Donis Mancini Hemoglobin (Bld) [Mass/Vol] 12.4 g/dL Normal 12.0-16.0 [facility] Comment on above: Result Comment: michelet ent delivered Performed By: #### C T/NGNA #### [facility] [address] [place] [address] Dr. Donis Mancini IG # 0.10 10e3/ul Critically high 0.00-0.03 [facility] Comment on above: Performed By: #### C T/NGNA #### [facility] [address] [place] [address] Dr. Donis Mancini IG % 0.5 % Normal 0.0-0.5 [facility] Comment on above: Performed By: #### C T/NGNA #### [facility] [address] [place] [address] Dr. Donis Mancini LYMPH # 1.5 103/ul Normal 1.2-3.8 [facility] Comment on above: Performed By: #### C T/NGNA #### [facility] [address] [place] [address] Dr. Donis Mancini Lymphocytes/100 WBC (Bld) 7.6 % Critically low 20.5-60.0 [facility] Comment on above: Performed By: #### C T/NGNA #### [facility] [address] [place] [address] Dr. Donis Mancini MANUAL DIFF REQ NO Normal [facility] Comment on above: Performed By: #### C T/NGNA #### [facility] [address] [place] [address] Dr. Donis Mancini MCH (RBC) [Entitic mass] 32.2 pg Normal 26.7-34.0 [facility] Comment on above: Performed By: #### C T/NGNA #### [facility] [address] [place] [address] Dr. Donis Mancini MCHC (RBC) [Mass/Vol] 34.5 g/dL Normal 29.9-35.2 [facility] Comment on above: Performed By: #### C T/NGNA #### [facility] [address] [place] [address] Dr. Donis Mancini MCV (RBC) [Entitic vol] 93.2 fL Normal 81.0-99.0 [facility] Comment on above: Performed By: #### C T/NGNA #### [facility] [address] [place] [address] Dr. Donis Mancini MONO # 1.3 103/ul Critically high 0.3-0.8 [facility] Comment on above: Performed By: #### C T/NGNA #### [facility] [address] [place] [address] Dr. Donis Mancini Monocytes/100 WBC (Bld) 6.8 % Normal 1.7-12.0 [facility] Comment on above: Performed By: #### C T/NGNA #### [facility] [address] [place] [address] Dr. Donis Mancini NEUT # 16.2 103/ul Critically high 1.4-6.5 [facility] Comment on above: Performed By: #### C T/NGNA #### [facility] [address] [place] [place] [address] Dr. Donis Mancini Neutrophils/100 WBC (Bld) 84.4 % Critically high 43.0-75.0 [facility] Comment on above: Performed By: #### C T/NGNA #### [facility] [address] [place] [address] Dr. Donis Mancini Platelet mean volume (Bld) [Entitic vol] 11.8 fL Normal 9.5-13.5 [facility] Comment on above: Performed By: #### C T/NGNA #### [facility] [address] [place] [address] Dr. Donis Mancini PLT 156 103/ul Normal 150-450 [facility] Comment on above: Performed By: #### C T/NGNA #### [facility] [address] [place] [address] Dr. Donis Mancini RBC 3.85 106/ul Critically low 4.20-5.40 [facility] Comment on above: Performed By: #### C T/NGNA #### [facility] [address] [place] [address] Dr. Donis Mancini WBC 19.2 103/ul Critically high 4.0-11.0 [facility] Comment on above: Performed By: #### C T/NGNA #### [facility] [address] [place] [address] Dr. Donis Mancini [facility]27 SARS-CoV-2 (COVID-19) RNA INESSA+probe Ql (Unsp spec) Not detected Normal NOT DETECTED [facility] Comment on above: Result Comment: When [...] for this test is supported by the Lock[employer] Top[employer]cher of Health and Human Service's declaration that [...] be used). Performed By: #### C VDTBH ####[facility] Y[address]ems[address] [place], [place] [address]Dr. Donis Mancini DRUG SCREEN RAPID (URINE)on 08-10-2022 AMP Negative Normal NEGATIVE [facility] Comment on above: Performed By: #### D RUGRPD ####[facility] Ovwfwiv[address] [place], [place] [address]Dr. Donis Mancini BAR Negative Normal NEGATIVE [facility] Comment on above: Performed By: #### D RUGRPD ####[facility] [address] [place] [id number]. Donis Mancini BUP Negative Normal NEGATIVE [facility] Comment on above: Performed By: #### D RUGRPD ####[facility] [address] [place] [id number]. Donis Mancini BZO Negative Normal NEGATIVE [facility] Comment on above: Performed By: #### D RUGRPD ####[facility] [address] [place] [id number]. Donis Mancini ALEXA Negative Normal NEGATIVE [facility] Comment on above: Performed By: #### D RUGRPD ####[facility] [address] [place], [place] [id number]. Donis Mancini CUT-OFFS SEE BELOW Normal [facility] Comment on above: Result Comment: AMP (Amphetamine): 500ng/mL, BAR (Barbituates): 200 ng/mL, BZO (Benzodiazepines): 150 ng/mL, BUP (Buprenorphine): 10 ng/mL, ALEXA (Cocaine): 150 ng/mL, mAMP (Methamphetamine): 500 ng/mL, MTD (Methadone): 200 ng/mL, OPI (Opiates): 100 ng/mL, OXY (Oxycodone): 100 ng/mL, PCP (Phencyclidine): 25 ng/mL, PPX (Propoxyphene): 300 ng/mL, THC (Cannabinoids): 50 ng/mL, TCA (Trycyclic Antidepressants): 300 ng/mL Performed By: #### D RUGRPD ####[facility] Ukmbuqvlst[address] [place], [place] [address]Dr. Donis Mancini DRUG CUT HEADER DRUG CLASS TEST SYSTEM CUT-OFF CONCENTRATIONS ARE FOLLOWS: Normal [facility] Comment on above: Performed By: #### D RUGRPD ####[facility] Iprenipfzu[address] [place], [place] [address]Dr. Donis Mancini mAMP Negative Normal NEGATIVE [facility] Comment on above: Performed By: #### D RUGRPD ####[facility] Vcdar[address]hr[address] [place], [place] [address]Dr. Donis Mancini MTD Negative Normal NEGATIVE [facility] Comment on above: Performed By: #### D RUGRPD ####[facility] [address] [place], [place] [address]Dr. Donis Mancini OPI Negative Normal NEGATIVE [facility] Comment on above: Performed By: #### D RUGRPD ####[facility] Mrrvjeqma[address] [place], [place] [address]Dr. Donis Mancini OXY Negative Normal NEGATIVE [facility] Comment on above: Performed By: #### D RUGRPD ####[facility] Fihqcgsnil[address] [place], [place] [address]Dr. Donis Mancini PCP Negative Normal NEGATIVE [facility] Comment on above: Performed By: #### D RUGRPD ####[facility] [address]ty[address] [place], [place] [address]Dr. Donis Mancini PPX Negative Normal NEGATIVE [facility] Comment on above: Performed By: #### D RUGRPD ####[facility] [address] [place], [place] [address]Xm. Donis Mancini TCA Negative Normal NEGATIVE [facility] Comment on above: Performed By: #### D RUGRPD ####[facility] Zfr[address]ngk[address] [place], [place] [address]Lm. Donis Mancini THC Negative Normal NEGATIVE [facility] Comment on above: Performed By: #### D RUGRPD ####[facility] [address] [place] [id number]. Donis Mancini TYPE AND SCREENon 08-10-2022 TYPE AND SCREEN Negative Normal [facility] Comment on above: Performed By: #### T NS ####[facility] [address] [place] [id number]. Donis Mancini US PREG BIOPHY W NON [...] ESTEFANY BENNETT Date: 2022-08-10 07:18 Normal [facility] US PREG GROWTHon 08-10-2022 US PREG [...] ESTEFANY BENNETT Date: 2022-08-10 07:16 Normal [facility] CBC AUTO DIFFon 08-09-2022 BASO # 0.0 103/ul Normal 0.0-0.1 [facility] Comment on above: Performed By: #### C BC ####[facility] Kfoccujnxo[address] [place], [place] [address]DrGene Mancini Basophils/100 WBC (Bld) 0.2 % Normal 0.2-2.0 [facility] Comment on above: Performed By: #### C BC ####[facility] [address] [place], [place] [address]DrGene Mancini EO # 0.4 103/ul Normal 0.0-0.7 [facility] Comment on above: Performed By: #### C BC ####[facility] Wmfx[address]px[address] [place], [place] [address]DrGene Mancini Eosinophils/100 WBC (Bld) 2.8 % Normal 0.9-7.0 [facility] Comment on above: Performed By: #### C BC ####[facility] Xgeotyhagy[address] [place], [place] [address]DrGene Mancini Erythrocyte distribution width (RBC) [Ratio] 12.2 % Normal 11.0-15.0 [facility] Comment on above: Performed By: #### C BC ####[facility] Ipl[address]qsmkx[address] [place], [place] [address]DrGene Mancini Hematocrit (Bld) [Volume fraction] 41.4 % Normal 36.0-48.0 [facility] Comment on above: Performed By: #### C BC ####[facility] Degepcmzfv[address] [place], [place] [address]Dr. Donis Mancini Hemoglobin (Bld) [Mass/Vol] 14.4 g/dL Normal 12.0-16.0 [facility] Comment on above: Performed By: #### C BC ####[facility] [address] [place] [address]Dr. Donis Mancini IG # 0.06 10e3/ul Critically high 0.00-0.03 [facility] Comment on above: Performed By: #### C BC ####[facility] [address] [place] [address]Dr. Donis Mancini IG % 0.5 % Normal 0.0-0.5 [facility] Comment on above: Performed By: #### C BC ####[facility] [address] [place], [place] [address]Dr. Donis Mancini LYMPH # 1.5 103/ul Normal 1.2-3.8 [facility] Comment on above: Performed By: #### C BC ####[facility] [address]errb[address]hm[address] [place], [place] [address]Dr. Donis Mancini Lymphocytes/100 WBC (Bld) 11.7 % Critically low 20.5-60.0 [facility] Comment on above: Performed By: #### C BC ####[facility] Sulptiwwtm[address] [place], [place] [address]Dr. Donis Mancini MANUAL DIFF REQ NO Normal [facility] Comment on above: Performed By: #### C BC ####[facility] Mixorpfoal[address] [place], [place] [address]Dr. Donis Mancini MCH (RBC) [Entitic mass] 31.9 pg Normal 26.7-34.0 [facility] Comment on above: Performed By: #### C BC ####[facility] Xvrsviyxim[address] [place], [place] [address]Dr. Donis Mancini MCHC (RBC) [Mass/Vol] 34.8 g/dL Normal 29.9-35.2 [facility] Comment on above: Performed By: #### C BC ####[facility] [address]auqq[address] [place], [place] [address]Dr. Donis Mancini MCV (RBC) [Entitic vol] 91.8 fL Normal 81.0-99.0 [facility] Comment on above: Performed By: #### C BC ####[facility] [address] [place] [address]DrGene Donis Mancini MONO # 1.0 103/ul Critically high 0.3-0.8 [facility] Comment on above: Performed By: #### C BC ####[facility] [address]oxlwk[address] [place], [place] [address]Dr. Donis Live Monocytes/100 WBC (Bld) 7.5 % Normal 1.7-12.0 [facility] Comment on above: Performed By: #### C BC ####[facility] Bbtok[address] [place], [place] [address]Dr. Donis Mancini NEUT # 10.0 103/ul Critically high 1.4-6.5 [facility] Comment on above: Performed By: #### C BC ####[facility] Heurwdrczy[address] [place], [place] [address]Dr. Donis Live Neutrophils/100 WBC (Bld) 77.3 % Critically high 43.0-75.0 [facility] Comment on above: Performed By: #### C BC ####[facility] X[address]hb[address] [place], [place] [address]Dr. Donis Live Platelet mean volume (Bld) [Entitic vol] 11.6 fL Normal 9.5-13.5 [facility] Comment on above: Performed By: #### C BC ####[facility] Puhybdzuct[address] [place], [place] [address]Dr. Laceyjavi Live PLT 184 103/ul Normal 150-450 [facility] Comment on above: Performed By: #### C BC ####[facility] F[address]lozuv[address] [place], [place] [address]Dr. oDnis Mancini RBC 4.51 106/ul Normal 4.20-5.40 [facility] Comment on above: Performed By: #### C BC ####[facility] Izjqr[address]ies[address] [place], [place] [address]Dr. Donis Mancini WBC 12.9 103/ul Critically high 4.0-11.0 [facility] Comment on above: Performed By: #### C BC ####[facility] [address] [place], [place] [address]Dr. Donis Mancini LDHon 08-09-2022 LDH 167 U/L Normal 81-234 [facility] Comment on above: Performed By: #### C T/NGNA #### [facility] [address] [place] [address] [address] Donis Mancini PROF 14(COMP METB)on 022 Albumin [Mass/Vol] 2.7 g/dL Critically low 3.4-5.0 [facility] Comment on above: Performed By: #### C T/NGNA #### [facility] [address] [place] [address] [address] Donis Mancini Albumin/Globulin [Mass ratio] 0.6 {ratio} Normal [facility] Comment on above: Performed By: #### C T/NGNA #### [facility] [address] [place] [address] [address] Donis Mancini ALP [Catalytic activity/Vol] 176 U/L Critically high 46-116 [facility] Comment on above: Performed By: #### C T/NGNA #### [facility] [address] [place] [address] [address] Donis Mancini ALT [Catalytic activity/Vol] 20 U/L Normal 14-59 [facility] Comment on above: Performed By: #### C T/NGNA #### [facility] [address] [place] [address] [address] Donis Mancini Anion gap [Moles/Vol] 12.9 mmol/L Normal [facility] Comment on above: Performed By: #### C T/NGNA #### [facility] [address] [place] [address] [address] Donis Mancini AST [Catalytic activity/Vol] 20 U/L Normal 15-37 [facility] Comment on above: Performed By: #### C T/NGNA #### [facility] [address] [place] [address] [address] Donis Mancini Bilirubin [Mass/Vol] 0.1 mg/dL Critically low 0.2-1.0 [facility] Comment on above: Performed By: #### C T/NGNA #### [facility] [address] [place] [address] Dr. Donis Mancini Calcium [Mass/Vol] 9.1 mg/dL Normal 8.5-10.1 [facility] Comment on above: Performed By: #### C T/NGNA #### [facility] [address] [place] [address] Dr. Donis Mancini Chloride [Moles/Vol] 104 mmol/L Normal 98-107 [facility] Comment on above: Performed By: #### C T/NGNA #### [facility] [address] [place] [address] Dr. Donis Mancini CO2 [Moles/Vol] 22.9 mmol/L Normal 21.0-32.0 [facility] Comment on above: Performed By: #### C T/NGNA #### [facility] [address] [place] [address] Dr. Donis Mancini Creatinine [Mass/Vol] 0.43 mg/dL Critically low 0.55-1.02 [facility] Comment on above: Performed By: #### C T/NGNA #### [facility] [address] [place] [address] Dr. Donis Mancini EGFR-AF BELGIAN >60 Normal >=60 [facility] Comment on above: Performed By: #### C T/NGNA #### [facility] [address] [place] [address] Dr. Donis Mancini EGFR-NON AF BELGIAN >60 Normal >=60 [facility] Comment on above: Performed By: #### C T/NGNA #### [facility] [address] [place] [address] Dr. Donis Mancini Globulin (S) [Mass/Vol] 4.2 g/dL Normal [facility] Comment on above: Performed By: #### C T/NGNA #### [facility] [address] [place] [address] Dr. Donis Mancini Glucose [Mass/Vol] 95 mg/dL Normal 74-106 [facility] Comment on above: Performed By: #### C T/NGNA #### [facility] [address] [place] [address] Dr. Donis Mancini Potassium [Moles/Vol] 3.8 mmol/L Normal 3.5-5.1 [facility] Comment on above: Performed By: #### C T/NGNA #### [facility] [address] [place] [address] Dr. Donis Mancini Protein [Mass/Vol] 6.9 g/dL Normal 6.4-8.2 [facility] Comment on above: Performed By: #### C T/NGNA #### [facility] [address] [place] [address] Dr. Donis Mancini Sodium [Moles/Vol] 136 mmol/L Normal 136-145 [facility] Comment on above: Performed By: #### C T/NGNA #### [facility] [address] [place] [address] Dr. Donis Mancini Urea nitrogen [Mass/Vol] 10.0 mg/dL Normal 7.0-18.0 [facility] Comment on above: Performed By: #### C T/NGNA #### [facility] [address] [place] [address] Dr. Donis Mancini Urea nitrogen/Creatinine [Mass ratio] 23.3 mg/mg Normal [facility] Comment on above: Performed By: #### C T/NGNA #### [facility] [address] [place] [address] Dr. Donis Mancini URIC ACID SERUMon 08-09-2022 Urate [Mass/Vol] 3.6 mg/dL Normal 2.6-6.0 [facility] Comment on above: Performed By: #### C T/NGNA #### [facility] [address] [place] [address] Dr. Donis Mancini CBC AUTO DIFFon 08-07-2022 BASO # 0.0 103/ul Normal 0.0-0.1 [facility] Comment on above: Performed By: #### U AMIC #### [facility] [address] [place] [address] [address] Donis Mancini Basophils/100 WBC (Bld) 0.2 % Normal 0.2-2.0 [facility] Comment on above: Performed By: #### U AMIC #### [facility] [address] [place] [address] [address] Donis Mancini EO # 0.2 103/ul Normal 0.0-0.7 [facility] Comment on above: Performed By: #### U AMIC #### [facility] [address] [place] [address] Dr. Donis Mancini Eosinophils/100 WBC (Bld) 1.8 % Normal 0.9-7.0 [facility] Comment on above: Performed By: #### U AMIC #### [facility] [address] [place] [address] Dr. Donis Mancini Erythrocyte distribution width (RBC) [Ratio] 12.3 % Normal 11.0-15.0 [facility] Comment on above: Performed By: #### U AMIC #### [facility] [address] [place] [address] Dr. Donis Mancini Hematocrit (Bld) [Volume fraction] 45.7 % Normal 36.0-48.0 [facility] Comment on above: Performed By: #### U AMIC #### [facility] [address] [place] [address] Dr. Donis Mancini Hemoglobin (Bld) [Mass/Vol] 16.0 g/dL Normal 12.0-16.0 [facility] Comment on above: Performed By: #### U AMIC #### [facility] [address] [place] [address] Dr. Donis Mancini IG # 0.07 10e3/ul Critically high 0.00-0.03 [facility] Comment on above: Performed By: #### U AMIC #### [facility] [address] [place] [address] Dr. Donis Mancini IG % 0.5 % Normal 0.0-0.5 [facility] Comment on above: Performed By: #### U AMIC #### [facility] [address] [place] [address] Dr. Donis Mancini LYMPH # 1.5 103/ul Normal 1.2-3.8 [facility] Comment on above: Performed By: #### U AMIC #### [facility] [address] [place] [address] [address] Donis Mancini Lymphocytes/100 WBC (Bld) 11.2 % Critically low 20.5-60.0 [facility] Comment on above: Performed By: #### U AMIC #### [facility] [address] [place] [address] Dr. Donis Mancini MANUAL DIFF REQ NO Normal [facility] Comment on above: Performed By: #### U AMIC #### [facility] [address] [place] [address] Dr. Donis Mancini MCH (RBC) [Entitic mass] 32.0 pg Normal 26.7-34.0 [facility] Comment on above: Performed By: #### U AMIC #### [facility] [address] [place] [address] Dr. Donis Mancini MCHC (RBC) [Mass/Vol] 35.0 g/dL Normal 29.9-35.2 [facility] Comment on above: Performed By: #### U AMIC #### [facility] [address] [place] [address] Dr. Donis Mancini MCV (RBC) [Entitic vol] 91.4 fL Normal 81.0-99.0 [facility] Comment on above: Performed By: #### U AMIC #### [facility] [address] [place] [address] Dr. Donis Mancini MONO # 0.9 103/ul Critically high 0.3-0.8 [facility] Comment on above: Performed By: #### U AMIC #### [facility] [address] [place] [address] Dr. Donis Mancini Monocytes/100 WBC (Bld) 6.3 % Normal 1.7-12.0 [facility] Comment on above: Performed By: #### U AMIC #### [facility] [address] [place] [address] [address] Donis Mancini NEUT # 10.9 103/ul Critically high 1.4-6.5 [facility] Comment on above: Performed By: #### U AMIC #### [facility] [address] [place] [address] [address] Donis Mancini Neutrophils/100 WBC (Bld) 80.0 % Critically high 43.0-75.0 [facility] Comment on above: Performed By: #### U AMIC #### [facility] [address] [place] [address] [address] Donis Mancini Platelet mean volume (Bld) [Entitic vol] 11.5 fL Normal 9.5-13.5 [facility] Comment on above: Performed By: #### U AMIC #### [facility] [address] [place] [address] [address] Donis Mancini PLT 182 103/ul Normal 150-450 [facility] Comment on above: Performed By: #### U AMIC #### [facility] [address] [place] [address] Dr. Donis Mancini RBC 5.00 106/ul Normal 4.20-5.40 [facility] Comment on above: Performed By: #### U AMIC #### [facility] [id number] Donis Mancini WBC 13.6 103/ul Critically high 4.0-11.0 [facility] Comment on above: Performed By: #### U AMIC #### [facility] [id number] Donis Mancini LDHon 08-07-2022 LDH 171 U/L Normal 81-234 [facility] Comment on above: Performed By: #### C MP, URIC, LDH ####[facility] [address] [place] [address]Dr. Donis Mancini PROF 14(COMP METB)on 11-12-2 022 Albumin [Mass/Vol] 2.9 g/dL Critically low 3.4-5.0 [facility] Comment on above: Performed By: #### C MP, URIC, LDH ####[facility] [address] [place] [address]Dr. Donis Mancini Albumin/Globulin [Mass ratio] 0.6 {ratio} Normal [facility] Comment on above: Performed By: #### C MP, URIC, LDH ####[facility] [address] [place] [address]Dr. Donis Mancini ALP [Catalytic activity/Vol] 192 U/L Critically high 46-116 [facility] Comment on above: Performed By: #### C MP, URIC, LDH ####[facility] [address] [place], [place] [address]Dr. Donis Mancini ALT [Catalytic activity/Vol] 23 U/L Normal 14-59 [facility] Comment on above: Performed By: #### C MP, URIC, LDH ####[facility] [address]xf[address] [place], [place] [address]Dr. Donis Mancini Anion gap [Moles/Vol] 14.4 mmol/L Normal [facility] Comment on above: Performed By: #### C MP, URIC, LDH ####[facility] [address] [place], [place] [address]Dr. Donis Mancini AST [Catalytic activity/Vol] 23 U/L Normal 15-37 [facility] Comment on above: Performed By: #### C MP, URIC, LDH ####[facility] [address] [place], [place] [address]Dr. Donis Mancini Bilirubin [Mass/Vol] 0.2 mg/dL Normal 0.2-1.0 [facility] Comment on above: Performed By: #### C MP, URIC, LDH ####[facility] [address] [place], [place] [address]Dr. Donis Mancini Calcium [Mass/Vol] 9.4 mg/dL Normal 8.5-10.1 [facility] Comment on above: Performed By: #### C MP, URIC, LDH ####[facility] [address] [place] [address]Dr. Donis Mancini Chloride [Moles/Vol] 104 mmol/L Normal 98-107 [facility] Comment on above: Performed By: #### C MP, URIC, LDH ####[facility] [address] [place] [address]Dr. Donis Mancini CO2 [Moles/Vol] 21.7 mmol/L Normal 21.0-32.0 [facility] Comment on above: Performed By: #### C MP, URIC, LDH ####[facility] [address] [place] [address]Dr. Donis Mancini Creatinine [Mass/Vol] 0.46 mg/dL Critically low 0.55-1.02 [facility] Comment on above: Performed By: #### C MP, URIC, LDH ####[facility] [address] [place], [place] [address]Dr. Donis Mancini EGFR-AF BELGIAN >60 Normal >=60 [facility] Comment on above: Performed By: #### C MP, URIC, LDH ####[facility] [address] [place], [place] [address]Dr. Donis Mancini EGFR-NON AF BELGIAN >60 Normal >=60 [facility] Comment on above: Performed By: #### C MP, URIC, LDH ####[facility] [address] [place] [address]Dr. Donis Mancini Globulin (S) [Mass/Vol] 4.6 g/dL Normal [facility] Comment on above: Performed By: #### C MP, URIC, LDH ####[facility] [address] [place] [address]Dr. Donis Mancini Glucose [Mass/Vol] 89 mg/dL Normal 74-106 [facility] Comment on above: Performed By: #### C MP, URIC, LDH ####[facility] Izbb[address] [place], [place] [address]Dr. Donis Mancini Potassium [Moles/Vol] 4.1 mmol/L Normal 3.5-5.1 [facility] Comment on above: Performed By: #### C MP, URIC, LDH ####[facility] [address] [place] [address]Dr. Donis Mancini Protein [Mass/Vol] 7.5 g/dL Normal 6.4-8.2 [facility] Comment on above: Performed By: #### C MP, URIC, LDH ####[facility] [address] [place] [address]Dr. Donis Mancini Sodium [Moles/Vol] 136 mmol/L Normal 136-145 [facility] Comment on above: Performed By: #### C MP, URIC, LDH ####[facility] [address] [place] [address]Dr. Donis Mancini Urea nitrogen [Mass/Vol] 8.0 mg/dL Normal 7.0-18.0 [facility] Comment on above: Performed By: #### C MP, URIC, LDH ####[facility] [address] [place], [place] [address]Dr. Donis Mancini Urea nitrogen/Creatinine [Mass ratio] 17.4 mg/mg Normal [facility] Comment on above: Performed By: #### C MP, URIC, LDH ####[facility] [address] [place], [place] [address]DrGene Mancini PROTIMEon 08-07-2022 INR Coag (PPP) [Relative time] {INR} Normal [facility] Comment on above: Performed By: #### U AMIC #### [facility] [address] [place] [address] Dr. Donis Mancini INR GUIDELINES SEE BELOW Normal [facility] Comment on above: Result Comment: NICCI RED INR: 2.0 - 3.0 CONDITIONS NOT LISTED BELOW 2.5 - 3.5 FOR PROSTHETIC HEART VALVE REPLACEMENT 2.5 - 3.5 RECURRENT THROMBOSIS Performed By: #### U AMIC #### [facility] [address] [place] [address] Dr. Donis Mancini PT Coag (PPP) [Time] 9.8 s Normal 9.0-11.6 [facility] Comment on above: Performed By: #### U AMIC #### [facility] [address] [place] [address] Dr. Donis Mancini PTTon 08-07-2022 aPTT Coag (Bld) [Time] 28.5 s Normal 22.3-36.2 [facility] Comment on above: Performed By: #### U AMIC #### [facility] [address] [place] [address] Dr. Donis Mancini UA (CLEAN/CATCH) PERMIT AGENT/MICRO I F IND.on 08-07-2022 Bilirubin Ql (U) Negative Normal NEGATIVE [facility] Comment on above: Performed By: #### U AMIC #### [facility] [address] [place] [address] Dr. Donis Mancini Clarity (U) CLEAR Normal CLEAR [facility] Comment on above: Performed By: #### U AMIC #### [facility] [address] [place] [address] Dr. Donis Mancini Color (U) LT. YELLOW Normal YELLOW [facility] Comment on above: Performed By: #### U AMIC #### [facility] [address] [place] [address] Dr. Donis Mancini Glucose Ql (U) Negative Normal NEGATIVE [facility] Comment on above: Performed By: #### U AMIC #### [facility] [address] [place] [address] Dr. Donis Mancini Hemoglobin Ql (U) Negative Normal NEGATIVE [facility] Comment on above: Performed By: #### U AMIC #### [facility] [address] [place] [address] Dr. Donis Mancini Ketones Ql (U) Negative Normal NEGATIVE [facility] Comment on above: Performed By: #### U AMIC #### [facility] [address] [place] [address] Dr. Donis Mancini LEUKOCYTES Negative Normal NEGATIVE [facility] Comment on above: Performed By: #### U AMIC #### [facility] [address] [place] [address] Dr. Donis Mancini Nitrite Ql (U) Negative Normal NEGATIVE [facility] Comment on above: Performed By: #### U AMIC #### [facility] [address] [place] [address] [address] Donis Mancini pH (U) 7.0 [pH] Normal 5-9 [facility] Comment on above: Performed By: #### U AMIC #### [facility] [address] [place] [address] [address] Donis Mancini SPEC GRAVITY <=1.005 Abnormal 1.005-<=1.02 5 [facility] Comment on above: Performed By: #### U AMIC #### [facility] [address] [place] [address] [address] Donis Mancini UA PROTEIN Negative Normal NEGATIVE/ TRACE [facility] Comment on above: Performed By: #### U AMIC #### [facility] [address] [place] [address] [address] Donis Mancini UR MICRO IND NOT INDICATED Normal [facility] Comment on above: Performed By: #### U AMIC #### [facility] [address] [place] [address] [address] Donis Mancini Urobilinogen Qn (U) 0.2 {Sarah'U}/dL Normal 0.2 - 1. 0 [facility] Comment on above: Performed By: #### U AMIC #### [facility] [address] [place] [address] [address] Donis Mancini URIC ACID SERUMon 08-07-2022 Urate [Mass/Vol] 3.8 mg/dL Normal 2.6-6.0 [facility] Comment on above: Performed By: #### C MP, URIC, LDH ####[facility] [address] [place] [address]Dr. Donis Mancini URINE T PROTEIN CREAT RATIOo n 08-07-2022 UR TOTAL PROTEIN <6.0 Normal <=12.0 [facility] Comment on above: Performed By: #### C T/NGNA #### [facility] [address] [place] [address] [address] Donis Mancini URINE CREAT 13.45 mg/dL Critically low 20.00-300.00 [facility] Comment on above: Performed By: #### C T/NGNA #### [facility] [address] [place] [address] [address] Donis Mancini US PREG BIOPHY W [...] COCO STERN Date: 2022-08-01 08:31 Normal [facility] CHLAMYDIA/GONOCOCCUS INESSA (SW AB/URINE/PAPon 07-31-2022 Chlamydia trachomatis, INESSA Negative Normal Negative [facility] Comment on above: Performed By: #### C T/NGNA #### [facility] [address] [place] [address] [address] Donis Mancini Neisseria gonorrhoeae, INESSA Negative Normal Negative [facility] Comment on above: Performed By: #### C T/NGNA #### [facility] [address] [place] [address] Dr. Donis Mancini VAGINITIS/VAGINOSIS DNA PROB Domenic 07-31-2022 Simeon species Negative Normal Negative [facility] Comment on above: Performed By: #### V AGINT ####[facility] [address] [place] [address]Dr. Donis Mancini Gardnerella vaginalis Negative Normal Negative [facility] Comment on above: Performed By: #### V AGINT ####[facility] [address] [place] [address]DrGene Mancini Trichomonas vaginalis Negative Normal Negative [facility] Comment on above: Performed By: #### V AGINT ####[facility] [address] [place] [address]Dr. Donis Mancini GROUP B STREP CULTUREon S. agalactiae Ag Ql (Unsp spec) Culture Observations: NEGATIVE FOR GROUP B STREPTOCOCCUS. Normal [facility] Comment on above: Performed By: #### G BSCX #### [facility] [address] [place] [address] Dr. Donis Mancini US PREG BIOPHY W [...] by: COCO STERN Date: 2022-07-25 09:41 Normal [facility] US PREG GROWTHon 07-11-2022 US [...] Age by EDC: 34 weeks 1 days LYIDA by EDC: 08/20/2022 Age by US: 34 weeks 1 day LYDIA by US: 08/20/2022 IMPRESSION: 1. Single live intrauterine with growth detailed above. Electronically authenticated by: ESTEFANY BENNETT Date: 2022-07-11 19:28 Normal [facility] Covid-19 PCR (CVDTBH)on 06-26 SARS-CoV-2 (COVID-19) RNA INESSA+probe Ql (Unsp spec) Not detected Normal NOT DETECTED [facility] Comment on above: Result Comment: When [...] for this test is supported by the [employer] of [employer] and Human Service's declaration that [...] used). Performed By: #### C T/NGNA #### [facility] [address] [place] [address] Dr. Donis Mancini GTT 3 HR PREGon 06-03-2022 Glucose [Mass/Vol] 94 mg/dL Normal 74-106 [facility] Comment on above: Performed By: #### U AMIC #### [facility] [address] [place] [address] Dr. Donis Mancini Glucose [Mass/Vol] 147 mg/dL Normal [facility] Comment on above: Performed By: #### U AMIC #### [facility] [address] [place] [address] Dr. Donis Mancini Glucose [Mass/Vol] 159 mg/dL Normal [facility] Comment on above: Performed By: #### U AMIC #### [facility] [address] [place] [address] Dr. Donis Mancini Glucose [Mass/Vol] 151 mg/dL Normal [facility] Comment on above: Performed By: #### U AMIC #### [facility] [address] [place] [address] Dr. Donis Mancini GLUCOSE - 1HRon 05-21-2022 Glucose [Mass/Vol] 141 mg/dL Critically high 74-106 [facility] Comment on above: Performed By: #### U AMIC #### [facility] [address] [place] [address] [address] Donis Mancini HEMOGRAM AND PLATELon 2021 Hematocrit (Bld) [Volume fraction] 39.1 % Normal 36.0-48.0 [facility] Comment on above: Performed By: #### U AMIC #### [facility] [address] [place] [address] [address] Donis Mancini Hemoglobin (Bld) [Mass/Vol] 13.1 g/dL Normal 12.0-16.0 [facility] Comment on above: Performed By: #### U AMIC #### [facility] [address] [place] [address] [address] Donis Mancini MCH (RBC) [Entitic mass] 32.3 pg Normal 26.7-34.0 [facility] Comment on above: Performed By: #### U AMIC #### [facility] [address] [place] [address] [address] Donis Mancini MCHC (RBC) [Mass/Vol] 33.5 g/dL Normal 29.9-35.2 [facility] Comment on above: Performed By: #### U AMIC #### [facility] [address] [place] [address] [address] Donis Mancini MCV (RBC) [Entitic vol] 96.5 fL Normal 81.0-99.0 [facility] Comment on above: Performed By: #### U AMIC #### [facility] [address] [place] [address] [address] Donis Mancini PLT 220 103/ul Normal 150-450 [facility] Comment on above: Performed By: #### U AMIC #### [facility] [address] [place] [address] [address] Donis Mancini RBC 4.05 106/ul Critically low 4.20-5.40 [facility] Comment on above: Performed By: #### U AMIC #### [facility] [address] [place] [address] [address] Donis Mancini WBC 12.8 103/ul Critically high 4.0-11.0 [facility] Comment on above: Performed By: #### U AMIC #### [facility] [address] [place] [address] [address] Donis Mancini US PREG BIOPHYSICAL NO [...] ESTEFANY BENNETT Date: 2022-05-11 06:25 Normal [facility] CULTURE URINEon 05-10-2022 CULTURE URINE Culture Observations: MODERATE GROWTH OF MIXED GENITAL RAMBO. NO POTENTIAL PATHOGENS SEEN. Normal [facility] Comment on above: Performed By: #### U RCX #### [facility] [address] [place] [address] [address] Donis Mancini UA RANDOM W/MICROSCOPICon BACTERIA LARGE Abnormal NONE SEEN [facility] Comment on above: Performed By: #### U AMIC ####[facility] [address] [place] [address]Dr. Donis Mancini Bilirubin Ql (U) Negative Normal NEGATIVE [facility] Comment on above: Performed By: #### U AMIC ####[facility] [address] [place] [address]Dr. Donis Mancini CAST NONE SEEN Normal NONE SEEN [facility] Comment on above: Performed By: #### U AMIC ####[facility] [address] [place] [address]Dr. Donis Mancini Clarity (U) CLEAR Normal CLEAR [facility] Comment on above: Performed By: #### U AMIC ####[facility] [address] [place] [address]Dr. Donis Mancini Color (U) YELLOW Normal YELLOW [facility] Comment on above: Performed By: #### U AMIC ####[facility] [address] [place] [address]Dr. Donis Mancini Crystals LM Nom (Urine sed) NONE SEEN Normal NONE SEEN [facility] Comment on above: Performed By: #### U AMIC ####[facility] [address] [place] [address]Dr. Donis Mancini Epithelial cells LM Ql (Urine sed) MODERATE Abnormal NONE SEEN /RARE [facility] Comment on above: Performed By: #### U AMIC ####[facility] [address] [place], [place] [address]Dr. Donis Mancini Glucose Ql (U) 250 mg/dl Abnormal NEGATIVE [facility] Comment on above: Performed By: #### U AMIC ####[facility] [address] [place], [place] [address]Dr. Donis Mancini Hemoglobin Ql (U) TRACE-INTACT Abnormal NEGATIVE [facility] Comment on above: Performed By: #### U AMIC ####[facility] [address] [place], [place] [address]Dr. Donis Mancini Ketones Ql (U) Negative Normal NEGATIVE [facility] Comment on above: Performed By: #### U AMIC ####[facility] [address] [place], [place] [address]Dr. Donis Mancini LEUKOCYTES LARGE Abnormal NEGATIVE [facility] Comment on above: Performed By: #### U AMIC ####[facility] [address] [place] [address]Dr. Donis Mancini MUCOUS NONE SEEN Normal NONE SEEN [facility] Comment on above: Performed By: #### U AMIC ####[facility] [address] [place] [address]Dr. Donis Mancini Nitrite Ql (U) Negative Normal NEGATIVE [facility] Comment on above: Performed By: #### U AMIC ####[facility] [address] [place] [address]Dr. Donis Mancini pH (U) 6.0 [pH] Normal 5-9 [facility] Comment on above: Performed By: #### U AMIC ####[facility] [address] [place] [address]Dr. Donis Mancini RBC 2-5 Abnormal 0-2 [facility] Comment on above: Performed By: #### U AMIC ####[facility] [address] [place] [address]Dr. Donis Mancini SPEC GRAVITY <=1.005 Abnormal 1.005-<=1.02 5 [facility] Comment on above: Performed By: #### U AMIC ####[facility] [address] [place], [place] [address]Dr. Donis Live UA PROTEIN Negative Normal NEGATIVE/ TRACE [facility] Comment on above: Performed By: #### U AMIC ####[facility] [address] [place], [place] [address]Dr. Donis Live Urobilinogen Qn (U) 0.2 {Sarah'U}/dL Normal 0.2 - 1. 0 [facility] Comment on above: Performed By: #### U AMIC ####[facility] [address] [place] [address]Dr. Donis Mancini WBC 10-20 Abnormal NONE SEEN [facility] Comment on above: Performed By: #### U AMIC ####[facility] [address] [place] [address]Dr. Donis Mancini CULTURE URINEon 04-27-2022 CULTURE URINE Culture Observations: LIGHT GROWTH OF MIXED GENITAL RAMBO. NO POTENTIAL PATHOGENS SEEN. Normal [facility] Comment on above: Performed By: #### U RCX ####[facility] [address] [place], [place] [address]Dr. Donis Mancini UA (CLEAN/CATCH) PERMIT AGENT/MICRO I F IND.on 04-27-2022 Bilirubin Ql (U) Negative Normal NEGATIVE [facility] Comment on above: Performed By: #### U ACSIND, UMICRO ####[facility] [address] [place] [address]Dr. Donis Mancini Clarity (U) CLEAR Normal CLEAR [facility] Comment on above: Performed By: #### U ACSWENDY UMICRO ####[facility] [address] [place] [address]Dr. Donis Mancini Color (U) LT. YELLOW Normal YELLOW [facility] Comment on above: Performed By: #### U ACSWENDY UMICRO ####[facility] [address] [place] [address]Dr. Donis Mancini Glucose Ql (U) Negative Normal NEGATIVE [facility] Comment on above: Performed By: #### U ACSWENDY UMICRO ####[facility] [address] [place], [place] [address]Dr. Donis Mancini Hemoglobin Ql (U) Negative Normal NEGATIVE [facility] Comment on above: Performed By: #### U ACSWENDY UMICRO ####[facility] [address] [place], [place] [address]Dr. Donis Mancini Ketones Ql (U) Negative Normal NEGATIVE [facility] Comment on above: Performed By: #### U ACSWENDY ICRO ####[facility] [address] [place], [place] [address]Dr. Donis Mancini LEUKOCYTES SMALL Abnormal NEGATIVE [facility] Comment on above: Performed By: #### U ACSWENDY UMICRO ####[facility] [address] [place] [address]Dr. Donis Mancini Nitrite Ql (U) Negative Normal NEGATIVE [facility] Comment on above: Performed By: #### U ACSWENDY ICRO ####[facility] [address] [place] [address]Dr. Donis Mancini pH (U) 7.0 [pH] Normal 5-9 [facility] Comment on above: Performed By: #### U ACSWENDY UMICRO ####[facility] [address] [place] [address]Dr. Donis Mancini SPEC GRAVITY 1.015 Normal 1.005-<=1.02 5 [facility] Comment on above: Performed By: #### U ACSIND, UMICRO ####[facility] [address] [place] [address]Dr. Donis Mancini UA PROTEIN Negative Normal NEGATIVE/ TRACE [facility] Comment on above: Performed By: #### U ACSIND, UMICRO ####[facility] [address] [place] [address]Dr. Donis Mancini UR MICRO IND INDICATED Normal [facility] Comment on above: Performed By: #### U ACSIND, UMICRO ####[facility] [address] [place] [address]Dr. Donis Mancini Urobilinogen Qn (U) 0.2 {Sarah'U}/dL Normal 0.2 - 1. 0 [facility] Comment on above: Performed By: #### U ACSIND, UMICRO ####[facility] [address] [place], [place] [address]Dr. Donis Mancini URINE MICROSCOPIC ONLYon BACTERIA MODERATE Abnormal NONE SEEN [facility] Comment on above: Performed By: #### U ACSWENDY, ICRO ####[facility] [address] [place], [place] [address]Dr. Donis Mancini Bacteria identified Cx Nom (U) INDICATED Normal [facility] Comment on above: Performed By: #### U ACSWENDY, UMICRO ####[facility] [address] [place], [place] [address]Dr. Donis Mancini CAST NONE SEEN Normal NONE SEEN [facility] Comment on above: Performed By: #### U ACSIND, UMICRO ####[facility] Ox[address] [place], [place] [address]Dr. Donis Mancini Crystals LM Nom (Urine sed) NONE SEEN Normal NONE SEEN [facility] Comment on above: Performed By: #### U ACSIND, UMICRO ####[facility] [address] [place] [address]Dr. Donis Mancini Epithelial cells LM Ql (Urine sed) MODERATE Abnormal NONE SEEN /RARE [facility] Comment on above: Performed By: #### U NEFTALY DAMONICRO ####[facility] [address] [place], [place] [address]Al. Donis Mancini MUCOUS NONE SEEN Normal NONE SEEN [facility] Comment on above: Performed By: #### U NEFTALY DAMONICRO ####[facility] [address] [place], [place] [address]Tt. Donis Mancini RBC NONE SEEN Abnormal 0-2 [facility] Comment on above: Performed By: #### U LORETTA DAMONRO ####[facility] [address] [place], [place] [address]Uk. Donis Mancini WBC 2-5 Abnormal NONE SEEN [facility] Comment on above: Performed By: #### U DONNA DAMON ####[facility] [address] [place], [place] [address]Ox. Donis Mancini US KIDNEYSon 04-27-2022 US KIDNEYS [...] ANDREAS AN Date: 2022-04-27 17:48 Normal [facility] CULTURE URINEon 04-16-2022 CULTURE URINE [...] Trimethoprim/Sulfame thoxazole <=20 S F Normal [facility] Comment on above: Performed By: #### U RCX #### [facility] [address] [place] [address] Dr. Donis Mancini US PREG ANATOMY SINGLEon [...] ESTEFANY BENNETT Date: 2022-04-12 22:22 Normal [facility] UA RANDOM W/MICROSCOPICon BACTERIA SMALL Abnormal NONE SEEN [facility] Comment on above: Performed By: #### U AMIC #### [facility] [address] [place] [address] [address] Donis Mancini Bilirubin Ql (U) Negative Normal NEGATIVE [facility] Comment on above: Performed By: #### U AMIC #### [facility] [address] [place] [address] [address] Donis Mancini CAST NONE SEEN Normal NONE SEEN [facility] Comment on above: Performed By: #### U AMIC #### [facility] [address] [place] [address] [address] Donis Mancini Clarity (U) CLEAR Normal CLEAR [facility] Comment on above: Performed By: #### U AMIC #### [facility] [address] [address] [address] Donis Mancini Color (U) LT. YELLOW Normal YELLOW [facility] Comment on above: Performed By: #### U AMIC #### [facility] [address] [address] [address] Donis Mancini Crystals LM Nom (Urine sed) NONE SEEN Normal NONE SEEN [facility] Comment on above: Performed By: #### U AMIC #### [facility] [address] [address] [address] Donis Mancini Epithelial cells LM Ql (Urine sed) FEW Abnormal NONE SEEN /RARE [facility] Comment on above: Performed By: #### U AMIC #### [facility] [address] [place] [address] [address] Donis Mancini Glucose Ql (U) Negative Normal NEGATIVE [facility] Comment on above: Performed By: #### U AMIC #### [facility] [address] [address] [address] Donis Mancini Hemoglobin Ql (U) Negative Normal NEGATIVE [facility] Comment on above: Performed By: #### U AMIC #### [facility] [address] [place] [address] Dr. Donis Mancini Ketones Ql (U) Negative Normal NEGATIVE [facility] Comment on above: Performed By: #### U AMIC #### [facility] [address] [place] [address] [address] Donis Mancini LEUKOCYTES LARGE Abnormal NEGATIVE [facility] Comment on above: Performed By: #### U AMIC #### [facility] [address] [place] [address] Dr. Donis Mancini MUCOUS NONE SEEN Normal NONE SEEN [facility] Comment on above: Performed By: #### U AMIC #### [facility] [address] [place] [address] Dr. Donis Mancini Nitrite Ql (U) Negative Normal NEGATIVE [facility] Comment on above: Performed By: #### U AMIC #### [facility] [address] [place] [address] Dr. Donis Mancini pH (U) 5.5 [pH] Normal 5-9 [facility] Comment on above: Performed By: #### U AMIC #### [facility] [address] [place] [address] Dr. Donis Mancini RBC 0-2 Normal 0-2 [facility] Comment on above: Performed By: #### U AMIC #### [facility] [address] [place] [address] Dr. Donis Mancini SPEC GRAVITY <=1.005 Abnormal 1.005-<=1.02 5 [facility] Comment on above: Performed By: #### U AMIC #### [facility] [address] [place] [address] [address] Donis Mancini UA PROTEIN Negative Normal NEGATIVE/ TRACE [facility] Comment on above: Performed By: #### U AMIC #### [facility] [address] [address] [address] Donis Mancini Urobilinogen Qn (U) 0.2 {Sarah'U}/dL Normal 0.2 - 1. 0 [facility] Comment on above: Performed By: #### U AMIC #### [facility] [address] [place] [address] Dr. Donis Mancini WBC 5-10 Abnormal NONE SEEN [facility] Comment on above: Performed By: #### U AMIC #### [facility] [address] [address] [address] Donis Mancini HEP B SURFACE ANTIGEN SCREEN on 01-23-2022 HBsAg Screen Negative Normal Negative [facility] Comment on above: Performed By: #### U AMIC #### [facility] [address] [address] [address] Donis Mancini HEPATITIS C VIRUS AB W/ REFL EX QUANTon 01-23-2022 HCV AB 0.1 s/co ratio Normal 0.0-0.9 [facility] Comment on above: Performed By: #### H CVPCRR ####[facility] [address] [place] [address]Dr. Donis Mancini Interpretation: Comment Normal [facility] Comment on above: Result Comment: Nega tive Not infected with HCV, unless recent infection is suspected or other evidence exists to indicate HCV infection. Performed By: #### H CVPCRR ####[facility] [address] [place] [id number] Mancini HIV 1 AND 2 WITH REFLEXon HIV Screen 4th Generation wRfx Non-Reactive Normal Non Reactive [facility] Comment on above: Result Comment: HIV Negative HIV-1/HIV-2 antibodies and HIV-1 p24 antigen were NOT detected. There is no laboratory evidence of HIV infection. Performed By: #### H IV12 ####[facility] [address] [place] [address]DrGene Mancini RPR QUANTon 01-23-2022 Rapid Plasma Reagin, Quant Non-Reactive Normal NonRea<1:1 [facility] Comment on above: Result Comment: Plea se Note: This test does not meet current guidelines for screening and diagnosis of syphilis. This test is intended for following treatment response in patients being treated for syphilis infection. To screen for syphilis infection, a reflex cascade that includes both RPR and a treponema-specific assay should be utilized, such as Treponema pallidum (Syphilis) Screening Roff (005868) or Rapid Plasma Reagin (RPR) Test With Reflex to Quantitative RPR and Confirmatory Treponema pallidum Antibodies ([id number]). Performed By: #### R PRQ ####[facility] [address] [place] [address]Dr. Donis Mancini RUBELLA AB IGGon 01-23-2022 Rubella Antibodies, IgG 1.60 index Normal Immune >0.99 [facility] Comment on above: Result Comment: Non- immune <0.90 Equivocal 0.90 - 0.99 Immune >0.99 Performed By: #### U AMIC #### [facility] [address] [address] [address] Donis Mancini CBC AUTO DIFFon 01-22-2022 BASO # 0.1 103/ul Normal 0.0-0.1 [facility] Comment on above: Performed By: #### U AMIC #### [facility] [address] [place] [address] Dr. Donis Mancini Basophils/100 WBC (Bld) 0.5 % Normal 0.2-2.0 [facility] Comment on above: Performed By: #### U AMIC #### [facility] [address] [place] [address] Dr. Donis Mancini EO # 0.6 103/ul Normal 0.0-0.7 [facility] Comment on above: Performed By: #### U AMIC #### [facility] [facility] [address] [place] [address] Dr. Donis Mancini Eosinophils/100 WBC (Bld) 5.1 % Normal 0.9-7.0 [facility] Comment on above: Performed By: #### U AMIC #### [facility] [address] [place] [address] Dr. Donis Mancini Erythrocyte distribution width (RBC) [Ratio] 12.0 % Normal 11.0-15.0 [facility] Comment on above: Performed By: #### U AMIC #### [facility] [address] [place] [address] Dr. Donis Mancini Hematocrit (Bld) [Volume fraction] 45.8 % Normal 36.0-48.0 [facility] Comment on above: Performed By: #### U AMIC #### [facility] [address] [address] [address] Donis Mancini Hemoglobin (Bld) [Mass/Vol] 15.3 g/dL Normal 12.0-16.0 [facility] Comment on above: Performed By: #### U AMIC #### [facility] [address] [address] [address] Donis Mancini IG # 0.03 10e3/ul Normal 0.00-0.03 [facility] Comment on above: Performed By: #### U AMIC #### [facility] [address] [address] [address] Donis Mancini IG % 0.3 % Normal 0.0-0.5 [facility] Comment on above: Performed By: #### U AMIC #### [facility] [address] [place] [address] Dr. Donis Mancini LYMPH # 1.7 103/ul Normal 1.2-3.8 [facility] Comment on above: Performed By: #### U AMIC #### [facility] [address] [place] [address] Dr. Donis Mancini Lymphocytes/100 WBC (Bld) 15.9 % Critically low 20.5-60.0 [facility] Comment on above: Performed By: #### U AMIC #### [facility] [address] [place] [address] Dr. Donis Mancini MANUAL DIFF REQ NO Normal [facility] Comment on above: Performed By: #### U AMIC #### [facility] [address] [address] [address] Donis Mancini MCH (RBC) [Entitic mass] 31.5 pg Normal 26.7-34.0 [facility] Comment on above: Performed By: #### U AMIC #### [facility] [address] [address] [address] Donis Mancini MCHC (RBC) [Mass/Vol] 33.4 g/dL Normal 29.9-35.2 [facility] Comment on above: Performed By: #### U AMIC #### [facility] [address] [address] [address] Donis Mancini MCV (RBC) [Entitic vol] 94.2 fL Normal 81.0-99.0 [facility] Comment on above: Performed By: #### U AMIC #### [facility] [address] [address] [address] Donis Mancini MONO # 0.6 103/ul Normal 0.3-0.8 [facility] Comment on above: Performed By: #### U AMIC #### [facility] [address] [address] [address] Donis Mancini Monocytes/100 WBC (Bld) 5.8 % Normal 1.7-12.0 [facility] Comment on above: Performed By: #### U AMIC #### [facility] [address] [place] [address] Dr. Donis Mancini NEUT # 7.8 103/ul Critically high 1.4-6.5 [facility] Comment on above: Performed By: #### U AMIC #### [facility] [address] [place] [address] Dr. Donis Mancini Neutrophils/100 WBC (Bld) 72.4 % Normal 43.0-75.0 [facility] Comment on above: Performed By: #### U AMIC #### [facility] [address] [place] [address] Dr. Donis Mancini Platelet mean volume (Bld) [Entitic vol] 9.9 fL Normal 9.5-13.5 [facility] Comment on above: Performed By: #### U AMIC #### [facility] [address] [place] [address] Dr. Donis Mancini PLT 281 103/ul Normal 150-450 [facility] Comment on above: Performed By: #### U AMIC #### [facility] [address] [address] [address] Donis Mancini RBC 4.86 106/ul Normal 4.20-5.40 [facility] Comment on above: Performed By: #### U AMIC #### [facility] [address] [address] [address] Donis Mancini WBC 10.8 103/ul Normal 4.0-11.0 [facility] Comment on above: Performed By: #### U AMIC #### [facility] [address] [address] [address] Donis Mancini CULTURE URINEon 01-22-2022 CULTURE URINE Culture Observations: LIGHT GROWTH OF MIXED GENITAL RAMBO. NO POTENTIAL PATHOGENS SEEN. Normal [facility] Comment on above: Performed By: #### U RCX #### [facility] [address] [address] [address] Donis Mancini GLYCOHEMOGLOBIN A1Con 2021 ADA RECOMMENDATION SEE BELOW Normal [facility] Comment on above: Result Comment: ADA RECOMMENDED LIMIT 4.0 - 6.0 ADA THERAPEUTIC TARGET < 7.0 ACTION SUGGESTED > 7.0 Performed By: #### A 1C ####[facility] [address] [address]DrGene Mancini Glucose [Mass/Vol] 100 mg/dL Normal [facility] Comment on above: Performed By: #### A 1C ####[facility] [address] [address]Dr. Donis Mancini HbA1c (Bld) [Mass fraction] 5.1 % Normal 4.5-6.2 [facility] Comment on above: Performed By: #### A 1C ####[facility] [address] [address]DrGene Mancini SEAN BOX TEST PT SEND OUTo n 01-22-2022 SENT TO REF LAB 01/22/2022 Normal [facility] Comment on above: Performed By: #### N BOX ####[facility] [address] [address]Dr. Donis Mancini TYPE AND SCREENon 01-22-2022 TYPE AND SCREEN Negative Normal [facility] Comment on above: Performed By: #### T NS #### [facility] [address] [place] [address] Dr. Donis Mancini US PREG TVon 01-17-2022 [...] by: COCO STERN Date: 2022-01-17 09:34 Normal [facility] Provider Letteron 04-06-2021 Provider Letter April 06, 2021 Dear Vimal, We have been trying to reach you with no success. It is important that you return our call regarding your appointment upon receiving this letter. Also, at the time of your call, please provide us with your current information. Thank you for your prompt attention to this matter. Sincerely, [facility] [address] [address] Normal [facility] Ambulatory Clinical Summaryo n 03-10-2021 Ambulatory Clinical Summary {[id number] Normal [facility] Ambulatory Clinical Summaryo n 03-05-2021 Ambulatory Clinical Summary {[id number]}CD:[id number] Normal [facility] Gynecology Phone Visit- Tele healthon 03-05-2021 [...] only communication with the patient located at [address] [place] [phone], with no one else. 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 CODING DATE: 12/18/2020 FINAL [facility] STATUS: Home (Routine DC) PAYOR: Gardi ADMIT DX: REASON FOR VISIT DX: U07.1 [...] CphT Date Saved: 12/18/2020 12:44 pm Normal [facility] Physician Orderon 12-16-2020 Physician Order [id number] Normal [facility] Rapid COVID Antigen ([facility])on 12-16-2020 Rapid COV Int NEG Ctl Pass Normal [facility] Comment on above: Performed By: #### 2 [id number] #### [facility] [address] [place] [address] Rapid COV Int POS Ctl Pass Normal [facility] Comment on above: Performed By: #### 2 [id number] #### [facility] [address] [place] [address] SARS-CoV-2 (COVID-19) RNA INESSA+probe Ql (Unsp spec) Detected Abnormal Not Detected [facility] Comment on above: Result Comment: Left a message for callback. 12/16/2020 11:42:47 EDT Results faxed to infection control. The [employer] Veritor? System for Rapid Detection of SARS-CoV-2 [...] under an Emergency Use Authorization. In the [facility], this test has not been FDA [...] other viruses or pathogens; and, in the [facility], this test is only authorized for the duration of the declaration that circumstances exist justifying the authorization of emergency use of in vitro diagnostics for detection and/or diagnosis of the virus that causes COVID-19 under Section 564(b)(1) of the Act, 21 U.S.C. ? 360bbb-3(b)(1), unless the authorization is terminated or revoked sooner. Performed By: #### 2 [id number] #### [facility] [address] [place] [address] Employed in Healthcare Unknown Normal [facility] Comment on above: Performed By: #### 2 [id number] #### [facility] [address] [place] [address] First Test Unknown [place] [facility] Comment on above: Performed By: #### 2 [id number] #### [facility] [address] [place] [address] Hospitalized? NO Normal [facility] Comment on above: Performed By: #### 2 [id number] #### [facility] [address] [place] [address] ICU NO Normal [facility] Comment on above: Performed By: #### 2 [id number] #### [facility] [address] [place] [address] ? Unknown Normal [facility] Comment on above: Performed By: #### 2 [id number] #### [facility] [address] [place] [address] Resides in a Congregate Care Setting Unknown Normal [facility] Comment on above: Performed By: #### 2 [id number] #### [facility] [address] [place] [address] Symptomatic as defined by [facility] YES Normal [facility] Comment on above: Performed By: #### 2 [id number] #### [facility] [address] [place] [address] Ambulatory Clinical Summaryo n 11-25-2020 Ambulatory Clinical Summary {[id number] Normal [facility] Vital Signs Date Time Vital Sign Value Performing Clinician Facility 05-14-2025 14:59-0400 Body mass index (BMI) [Ratio] 31.35 kg/m2 Jose Michael DO Work Phone: [facility] 05-14-2025 14:59-0400 Body weight 80.29 kg Jose Michael DO Work Phone: [facility] 05-14-2025 14:59-0400 Diastolic blood pressure 90 mm[Hg] Jsoe Michael DO Work Phone: [facility] 05-14-2025 14:59-0400 Systolic blood pressure 140 mm[Hg] Jose Michael DO Work Phone: [facility] 05-13-2025 16:11-0400 Body weight 79.83 kg Marjorie Rico RN Work Phone: [facility] 04-30-2025 11:52-0400 Body mass index (BMI) [Ratio] 31 kg/m2 Rossana BISWAS Work Phone: [facility] 04-30-2025 11:52-0400 Body weight 79.38 kg Rossana BISWAS Work Phone: [facility] 04-30-2025 11:52-0400 Diastolic blood pressure 94 mm[Hg] Rossana BISWAS Work Phone: [facility] 04-30-2025 11:52-0400 Systolic blood pressure 140 mm[Hg] Rossana Rachel PA Work Phone: [facility] 04-11-2025 15:38-0400 Body mass index (BMI) [Ratio] 30.2 kg/m2 Rossana [place] C[place] PA Work Phone: [facility] 04-11-2025 15:38-0400 Body weight 77.34 kg Rossana [place] PA Work Phone: [facility] 04-11-2025 15:38-0400 Diastolic blood pressure 100 mm[Hg] Rossana [place] PA Work Phone: [facility] 04-11-2025 15:38-0400 Systolic blood pressure 142 mm[Hg] Rossana [place] PA Work Phone: [facility] 03-14-2025 11:36-0400 Body mass index (BMI) [Ratio] 29.23 kg/m2 Jose Michael DO Work Phone: [facility] 03-14-2025 11:36-0400 Body weight 74.84 kg Jose Michael DO Work Phone: [facility] 03-14-2025 11:36-0400 Diastolic blood pressure 76 mm[Hg] Jose Michael DO Work Phone: [facility] 03-14-2025 11:36-0400 Systolic blood pressure 112 mm[Hg] Jose Michael DO Work Phone: [facility] 02-20-2025 16:08-0400 Body mass index (BMI) [Ratio] 28.83 kg/m2 Rossana [place] PA Work Phone: [facility] 02-20-2025 16:08-0400 Body weight 73.82 kg Rossana [place] PA Work Phone: [facility] 02-20-2025 16:08-0400 Diastolic blood pressure 82 mm[Hg] Rossana [place] PA Work Phone: [facility] 02-20-2025 16:08-0400 Systolic blood pressure 110 mm[Hg] Rossana [place] PA Work Phone: [facility] 01-14-2025 [...] 25.93 kg/m2 Rossana Leach PA Work Phone: [facility] 08-20-2024 10:55-0500 Body weight 66.41 kg Rossana Leach PA Work Phone: [facility] 08-20-2024 10:55-0500 Diastolic blood pressure 70 mm[Hg] Rossana Leach PA Work Phone: [facility] 08-20-2024 10:55-0500 Systolic blood pressure 120 mm[Hg] Rossana Leach PA Work Phone: [facility] 08-06-2024 [...] Body mass index (BMI) [Ratio] 24.58 kg/m2 [facility] Nurse [facility] 06-29-2024 09:12-0400 Body weight 62.94 kg [facility] Nurse [facility] 06-29-2024 09:12-0400 Diastolic blood pressure 72 mm[Hg] [facility] Nurse [facility] 06-29-2024 09:12-0400 Systolic blood pressure 122 mm[Hg] [facility] Nurse [facility] 12-26-2022 13:45-0400 Body height 160.02 cm Jennifer Betzaida Other [facility] [employer] Other 12-26-2022 13:45-0400 Body mass index (BMI) [Ratio] 27.45 kg/m2 Jennifer Betzaida Other [facility] Other 12-26-2022 13:45-0400 Body temperature 97 [degF] Jennifer Betzaida Other [facility] Other 12-26-2022 13:45-0400 Body weight 70.31 kg Jennifer Dudleymond Other [facility] Other 12-26-2022 13:45-0400 Diastolic blood pressure 89 mm[Hg] Jennifer Betzaida Other [facility] Other 12-26-2022 13:45-0400 Respiratory rate 18 /min Jennifer Betzaida Other [facility] Other 12-26-2022 13:45-0400 SaO2% (BldA) [Mass fraction] 100 % Jennifer Betzaida Other [facility] Other 12-26-2022 13:45-0400 Systolic blood pressure 135 mm[Hg] Jennifer Betzaida Other [facility] Other Encounters Encounter Date Encounter Type Care Provider Facility Start: 05-18-2025 End: 05-18-2025 Clinisync Result Encounter Jose Michelezio DO Work Phone: [facility] External Department Unsolicited Start: 05-18-2025 End: 05-18-2025 Clinisync Result Encounter Jose Michelezio DO Work Phone: [facility] External [facility] Unsolicited Start: 05-14-2025 End: 05-14-2025 ambulatory JOSE DCO Not Available Start: 05-14-2025 End: 05-14-2025 flow sheet Jose Michael DO Work Phone: [facility] Comment on above: Third trimester preg alysa ([facility]); 30 weeks gestation of ([facility]); induced hypertension, antepartum ([facility]) Start: 05-14-2025 End: 05-14-2025 Bamboo flowsheet Jose Michael DO Work Phone: [facility] Start: 05-14-2025 End: 05-14-2025 Bamboo flowsheet Jose Michael DO Work Phone: [facility] Start: 05-13-2025 End: 05-13-2025 ambulatory Marjorie Rico RN Work Phone: [facility] Comment on above: Gestational diabetes mellitus (GDM) in third trimester, gestational diabetes method of control unspecified Start: 05-11-2025 End: 05-11-2025 Clinisync Result Encounter Rossana BISWAS Work Phone: [facility] External Department Unsolicited Start: 05-11-2025 End: 05-11-2025 Clinisync Result Encounter Rossana BISWAS Work Phone: [facility] External Department Unsolicited Start: 05-10-2025 End: 05-10-2025 Chart abstracting Scanning Provider External [facility] Start: 05-06-2025 End: 05-06-2025 Clinisync Result Encounter Rossana BISWAS Work Phone: [facility] External Department Unsolicited Start: 05-06-2025 End: 05-06-2025 Clinisync Result Encounter Rossana BISWAS Work Phone: [facility] External [facility] Unsolicited Start: 05-04-2025 End: 05-04-2025 Clinisync Result Encounter Rossana Leach PA Work Phone: [facility] External Department Unsolicited Start: 05-04-2025 End: 05-04-2025 Clinisync Result Encounter Rossana BISWAS Work Phone: [facility] Unsolicited Start: 05-04-2025 End: 05-08-2025 Telephone encounter Jose Rodriguez DO Work Phone: [facility] Start: 04-30-2025 End: 04-30-2025 Bamboo flowsheet Rossana Leach TRUE Work Phone: [facility] Start: 04-30-2025 End: 04-30-2025 Bamboo flowsheet Rossana Leach PA Work Phone: [facility] Start: 04-30-2025 End: 04-30-2025 ambulatory ROSSANA LEACH Not Available Start: 04-30-2025 End: 04-30-2025 Patient encounter status Rossana Leach PA Work Phone: [facility] Work Phone: Start: 04-30-2025 End: 04-30-2025 flow sheet Rossana Leach TRUE Work Phone: [facility] Comment on above: BP check; -induced hypertension in third trimester ([facility]); Gestational diabetes mellitus (GDM) in third trimester, gestational diabetes method of control unspecified ([facility]) Start: 04-27-2025 End: 04-27-2025 Clinisync Result Encounter Rossana Leach TRUE Work Phone: [facility] Unsolicited Start: 04-27-2025 End: 04-27-2025 Clinisync Result Encounter Rossana BISWAS Work Phone: [facility] Unsolicited Start: 04-25-2025 End: 04-25-2025 flow sheet Rossana BISWAS Work Phone: [facility] Comment on above: Second trimester pre gnancy ([facility]); 27 weeks gestation of ([facility]); induced hypertension, antepartum ([facility]) Start: 04-25-2025 End: 04-25-2025 ambulatory ROSSANA RACHEL Not Available Start: 04-25-2025 End: 04-25-2025 Bamboo flowsheet Rossana BISWAS Work Phone: [facility] Start: 04-25-2025 End: 04-25-2025 Bamboo flowsheet Rossana BISWAS Work Phone: [facility] Start: 04-11-2025 End: 04-11-2025 ambulatory ROSSANA RACHEL Not Available Start: 04-11-2025 End: 04-11-2025 flow sheet Rossana BISWAS Work Phone: [facility] Comment on above: Second trimester pre gnancy ([facility]); 25 weeks gestation of ([facility]); Diabetes mellitus screening; Elevated BP without [...] flow sheet Jose Michael DO Work Phone: [facility] Comment on above: Second trimester pre gnancy ([facility]); 21 weeks gestation of ([facility]) Start: 03-08-2025 End: 03-08-2025 Clinisync Result Encounter Jose Michael DO Work Phone: [facility] External Department Unsolicited Start: 03-08-2025 End: 03-08-2025 Clinisync Result Encounter Jose Michael DO Work Phone: [facility] External Department Unsolicited Start: 02-20-2025 End: 02-20-2025 Patient encounter procedure Rossana BISWAS Work Phone: [facility] Start: 02-20-2025 End: 02-20-2025 flow sheet Rossana BISWAS Work Phone: [facility] Comment on above: Screening, , for anatomic survey; Well woman exam with routine gynecological exam; STD exposure; Second trimester ; 18 weeks gestation of ; Urinary frequency Start: 02-20-2025 End: 02-20-2025 ambulatory ROSSANA LEACH Not Available Start: 02-20-2025 End: 02-20-2025 Bamboo flowsheet Rossana BISWAS Work Phone: [facility] Start: 02-20-2025 End: 02-23-2025 Bamboo flowsheet Rossana BISWAS Work Phone: [facility] Start: 02-20-2025 End: 02-23-2025 Clinisync Result Encounter Rossana BISWAS Work Phone: [facility] Unsolicited Start: 02-20-2025 End: 02-22-2025 External Result Encounter Rossana Leach PA Work Phone: [facility] External Department Unsolicited [...] Start: 08-10-2024 End: 08-10-2024 ambulatory PHYSICIAN [facility] Work Phone: Start: 08-10-2024 End: 08-10-2024 Departed Referred PHYSICIAN [facility] Start: 08-06-2024 End: 08-06-2024 Bamboo flowsheet [...] 12-26-2022 End: 12-26-2022 ambulatory Jennifer Huston Other [facility] [employer] Other Start: 12-26-2022 End: 12-26-2022 Patient encounter procedure FRONT OFFICE SUPERVISOR-C Jennifer Huston Work Phone: [facility] Work Phone: Start: 11-02-2022 End: 11-02-[address] JOSE RODRIGEUZ . Facility:[facility] Start: 08-16-2022 End: 08-16-2022 ambulatory [...] Date Procedure Procedure Detail Performing Clinician Start: 05-18-2025 OB BPP W NON-STRESS Rossana BISWAS Work Phone: Start: 05-18-2025 ALL CBC WITH AUTO DIFF Jose Rodriguez DO Work Phone: Start: 05-13-2025 Glucose quantitative blood xcpt reagent strip Wendy Miranda MD Work Phone: Start: 05-11-2025 US OB BPP W NON-STRESS Rossana BISWAS [...] dip stick/tablet rgnt non-auto w/o micrscp Jose Rodriguez DO Work Phone: Start: 12-26-2022 Plain X-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 hand FRONT OFFICE SUPERVISOR-C Jennifer Huston Work Phone: Start: 11-02-2022 Cytp cerv/vag auto t hin layer prep mnl screen Jose Rodriguez DO Work Phone: Start: 08-10-2022 Delivery [...] malign ant neoplasm of cervix Pap Smear [facility] Start: 06-04-2025 End: 06-04-2025 Patient encounter procedure 06/04/2025 1:00 PM EDT Appointment [facility] [address] [place] [id number] Jose Rodriguez R, DO [address] [place] [address] [facility] Start: 05-27-2025 Influenza vaccination N [facility] Start: 05-22-2025 End: 05-22-2025 Patient encounter procedure 05/22/2025 2:40 PM EDT Routine [facility] [address] [place] [address] Jose Rodriguez DO [address] [place] [address] [facility] Start: 05-14-2025 End: 05-14-2025 Patient encounter procedure 05/14/2025 2:40 PM EDT Routine [facility] Rafia PANG [address] [place] [address] Jose Rodriguez DO [address] [place] [address] [facility] [place] [facility] Start: 05-14-2025 End: 05-14-2026 Alanine aminotransferase [Enzymatic activity/volume] in Serum or Plasma ALT Lab Routine induced hypertension, antepartum ([facility]) Expected: 05/14/2025 (Approximate), Expires: 05/14/2026 [facility] Comment on above: Expected: 05/14/2025 (Approximate), Expires: 05/14/2026 Start: 05-14-2025 End: 05-14-2026 Aspartate aminotransferase [Enzymatic activity/volume] in Serum or Plasma AST Lab Routine induced hypertension, antepartum ([facility]) Expected: 05/14/2025 (Approximate), Expires: 05/14/2026 [facility] Comment on above: Expected: 05/14/2025 (Approximate), Expires: 05/14/2026 Start: 05-14-2025 End: 05-14-2026 CBC W Auto Differential panel - Blood CBC and differential Lab Routine induced hypertension, antepartum ([facility]) Expected: 05/14/2025 (Approximate), Expires: 05/14/2026 [facility] Comment on above: Expected: 05/14/2025 (Approximate), Expires: 05/14/2026 Start: 05-14-2025 End: 05-14-2026 Creatinine [Mass/volume] in Serum or Plasma Creatinine Lab Routine induced hypertension, antepartum ([facility]) Expected: 05/14/2025 (Approximate), Expires: 05/14/2026 [facility] Work Phone: Comment on above: Expected: 05/14/2025 (Approximate), Expires: 05/14/2026 Start: 05-14-2025 End: 05-14-2026 Lactate dehydrogenase [Enzymatic activity/volume] in Serum or Plasma by Lactate to pyruvate reaction Lactate dehydrogenase Lab Routine induced hypertension, antepartum ([facility]) Expected: 05/14/2025, Expires: 05/14/2026 [facility] Comment on above: Expected: 05/14/2025 , Expires: 05/14/2026 Start: 05-14-2025 End: 05-14-2026 Protein, urine, 24 hour Protein, urine, 24 hour Lab Routine induced hypertension, antepartum (HHS-HCC) Expected: 05/14/2025 (Approximate), Expires: 05/14/2026 [facility] Comment on above: Expected: 05/14/2025 (Approximate), Expires: 05/14/2026 Start: 05-14-2025 End: 05-14-2026 Pt and ptt Pt and ptt Lab Routine induced hypertension, antepartum (HHS-HCC) Expected: 05/14/2025, Expires: 05/14/2026 [facility] Comment on above: Expected: 05/14/2025 , Expires: 05/14/2026 Start: 05-14-2025 End: 05-14-2026 Urate [Mass/volume] in Serum or Plasma Uric acid Lab Routine induced hypertension, antepartum (HHS-HCC) Expected: 05/14/2025 (Approximate), Expires: 05/14/2026 [facility] Comment on above: Expected: 05/14/2025 (Approximate), Expires: 05/14/2026 Start: 05-14-2025 End: 05-14-2026 Urea nitrogen [Mass/volume] in Serum or Plasma BUN Lab Routine induced hypertension, antepartum (HHS-HCC) Expected: 05/14/2025, Expires: 05/14/2026 [facility] Comment on above: Expected: 05/14/2025 , Expires: 05/14/2026 Start: 05-13-2025 End: 05-13-2025 ambulatory 05/13/2025 1:30 PM EDT Support Visit [facility] [address] [facility] [place] [address] Marjorie Rico RN [address], [address] [place] [address] Xenia Rayo, RD [address], [address] [place] [address] [facility] Start: 04-30-2025 End: 10-31-2025 US biophysical profile w non stress test US biophysical profile w non stress test Imaging Routine -induced hypertension in third trimester (HHS-HCC) Gestational diabetes mellitus (GDM) in third trimester, gestational diabetes method of control unspecified ([facility]) Expected: 04/30/2025 (Approximate), Expires: 10/31/2025 [facility] Work Phone: Comment on above: Expected: 04/30/2025 (Approximate), Expires: 10/31/2025 Start: 04-30-2025 End: 08-30-2025 US for US OB follow up transabdominal approach Imaging Routine -induced hypertension in third trimester (HHS-HCC) Gestational diabetes mellitus (GDM) in third trimester, gestational diabetes method of control unspecified ([facility]) Expected: 04/30/2025, Expires: 08/30/2025 [facility] Comment on above: Expected: 04/30/2025 , Expires: 08/30/2025 Start: 04-30-2025 End: 04-30-2025 Patient encounter procedure 04/30/2025 10:50 AM EDT Routine [facility] [address] [place] [id number] Rossana Leach PA [address] [place] [address] [facility] Start: 04-25-2025 End: 04-25-2025 Patient encounter procedure [facility] Comment on above: Arrived Start: 04-25-2025 End: 04-25-2026 Alanine aminotransferase [Enzymatic activity/volume] in Serum or Plasma ALT Lab Routine induced hypertension, antepartum (HHS-HCC) Expected: 04/25/2025 (Approximate), Expires: 04/25/2026 [facility] Comment on above: Expected: 04/25/2025 (Approximate), Expires: 04/25/2026 Start: 04-25-2025 End: 04-25-2026 Aspartate aminotransferase [Enzymatic activity/volume] in Serum or Plasma AST Lab Routine induced hypertension, antepartum (HHS-HCC) Expected: 04/25/2025 (Approximate), Expires: 04/25/2026 [facility] Comment on above: Expected: 04/25/2025 (Approximate), Expires: 04/25/2026 Start: 04-25-2025 End: 04-25-2026 CBC W Auto Differential panel - Blood CBC and differential Lab Routine induced hypertension, antepartum (HHS-HCC) Expected: 04/25/2025 (Approximate), Expires: 04/25/2026 [facility] Comment on above: Expected: 04/25/2025 (Approximate), Expires: 04/25/2026 Start: 04-25-2025 End: 04-25-2026 Creatinine [Mass/volume] in Serum or Plasma Creatinine Lab Routine induced hypertension, antepartum (HHS-HCC) Expected: 04/25/2025 (Approximate), Expires: 04/25/2026 [facility] Work Phone: Comment on above: Expected: 04/25/2025 (Approximate), Expires: 04/25/2026 Start: 04-25-2025 End: 04-25-2026 Lactate dehydrogenase [Enzymatic activity/volume] in Serum or Plasma by Lactate to pyruvate reaction Lactate dehydrogenase Lab Routine induced hypertension, antepartum (HHS-HCC) Expected: 04/25/2025, Expires: 04/25/2026 [facility] Comment on above: Expected: 04/25/2025 , Expires: 04/25/2026 Start: 04-25-2025 End: 04-25-2026 Protein, urine, 24 hour Protein, urine, 24 hour Lab Routine induced hypertension, antepartum (HHS-HCC) Expected: 04/25/2025 (Approximate), Expires: 04/25/2026 [facility] Comment on above: Expected: 04/25/2025 (Approximate), Expires: 04/25/2026 Start: 04-25-2025 End: 04-25-2026 Pt and ptt Pt and ptt Lab Routine induced hypertension, antepartum (HHS-HCC) Expected: 04/25/2025, Expires: 04/25/2026 [facility] Comment on above: Expected: 04/25/2025 , Expires: 04/25/2026 Start: 04-25-2025 End: 04-25-2026 Urate [Mass/volume] in Serum or Plasma Uric acid Lab Routine induced hypertension, antepartum (HHS-HCC) Expected: 04/25/2025 (Approximate), Expires: 04/25/2026 [facility] Comment on above: Expected: 04/25/2025 (Approximate), Expires: 04/25/2026 Start: 04-25-2025 End: 04-25-2026 Urea nitrogen [Mass/volume] in Serum or Plasma BUN Lab Routine induced hypertension, antepartum (HHS-HCC) Expected: 04/25/2025, Expires: 04/25/2026 [facility] Comment on above: Expected: 04/25/2025 , Expires: 04/25/2026 Start: 04-11-2025 End: 04-11-2025 Patient encounter procedure 04/11/2025 3:30 PM EDT Routine [facility] [address] [phone] Rossana Leach PA [address] [place] [address] [facility] Start: 04-11-2025 End: 04-11-2026 CBC panel - Blood by Automated count CBC Lab Routine Diabetes mellitus screening Expected: 04/11/2025 (Approximate), Expires: 04/11/2026 [facility] Work Phone: Comment on above: Expected: 04/11/2025 (Approximate), Expires: 04/11/2026 Start: 04-11-2025 End: 04-11-2026 Measurement of glucose 1 hour after glucose challenge for glucose tolerance test Glucose tolerance, 1 hour Lab Routine Diabetes mellitus screening Expected: 04/11/2025 (Approximate), Expires: 04/11/2026 [facility] Comment on above: Expected: 04/11/2025 (Approximate), Expires: 04/11/2026 Start: 03-14-2025 End: 03-14-2025 Patient encounter procedure 03/14/2025 10:50 AM EDT Routine [facility] [address] [place] [address] Jose Rodriguez, DO [address] [place] [address] [facility] Start: 02-20-2025 End: 02-20-2025 [...] Initial [facility] [address] [place] [phone] [facility] Start: 12-14-2024 End: 12-14-2024 Professional / ancillary services management 12/14/2024 8:30 AM EDT Ancillary Procedure [facility] [address] [place] [phone] [facility] Start: 08-20-2024 End: 08-20-2024 Patient encounter procedure 08/20/2024 10:20 AM EST [facility] [address] [place] [phone] Rossana Leach PA [address] [place], [place] [id number] [facility] Start: 08-06-2024 End: 08-06-2024 Patient encounter procedure 08/06/2024 9:10 AM EST Routine [facility] [address] [place] [phone] Jose Rodriguez DO [address] [place] [place], [place] [id number] [facility] Start: 06-29-2024 End: 06-29-2025 [...] Vacc ine (#1) [facility] Start: 05-01-2024 DTaP,Tdap and Td Vac cines (7 - Td or Tdap) DTaP,Tdap and Td Vaccines (7 - Td or Tdap) [facility] Start: 2020 DTaP,Tdap and Td Vac cines (1 - Tdap) DTaP,Tdap and Td Vaccines (1 - Tdap) [facility] Start: 2019 Adult BMI Screening Adult BMI Screen ing [facility] Start: 2013 Depression Screening Depression Scre ening [facility] Start: 2013 Tobacco Screening Tobacco Screening [facility] Bacteria identified in Urine by Culture [...] and Cytology Routine STD exposure Ordered: 02/20/2025 [facility] Work Phone: Comment on above: Ordered: 02/20/2025 Immunizations Immunization Date Immunization Notes Care Provider Ryne abrams [birth year]2003 influenza virus vacc ine, unspecified formulation Nom Nurse [facility] Payers Date Payer Category Payer Medicaid [place] [employer] [id number] 2024 Blue Cross Blue Shie ld Managed Care - PPO [id number] 2023 Medicaid [employer] [employer] [place] [id number] 2023-Present [address] [place] [address] [id number] 2023 Medicaid (Managed Care) [facility]ICA[facility] [id number] 2021 Blue Cross Blue Shield 1.2.8 [id number] 2021 Unknown BCBS BCBS xxxxxx [id number] 2021-Present [phone] [address] [place] [address] [id number]. [id number] 2001 Unknown [id number] 2.16.840.1.586013.3.579.2. 593 2001 Unknown [id number] 2.16.840.1.773715.3.579.2. 593 2001 Unknown [id number] 2.16.840.1.537898.3.579.2. 593 2001 Unknown [id number] 2.16.840.1.777053.3.579.2. 593 2001 Unknown [id number] 2.16.840.1.585046.3.579.2. 593 2001 Unknown [id number] 2.16.840.1.605318.3.579.2. 593 2001 Unknown [id number] 2.16.840.1.344274.3.579.2. 593 2001 Unknown [id number] 2.16.840.1.602868.3.579.2. 593 2001 Unknown [id number] 2.16.840.1.343961.3.579.2. 593 2001 Unknown [id number] 2.16.840.1.192885.3.579.2. 593 2001 Unknown [id number] 2.16.840.1.104319.3.579.2. 593 2001 Unknown [id number] 2.16.840.1.178481.3.579.2. 593 2001 Unknown [id number] 2.16.840.1.751476.3.579.2. 593 2001 Unknown [id number] 2.16.840.1.245978.3.579.2. 593 2001 Unknown [id number] 2.16.840.1.500794.3.579.2. 593 2001 Unknown [id number] 2.16.840.1.225660.3.579.2. 593 2001 Unknown [id number] 2.16.840.1.837192.3.579.2. 593 2001 Unknown [id number] 2.16.840.1.663179.3.579.2. 593 2001 Unknown [id number] 2.16.840.1.925923.3.579.2. 593 2001 Unknown [id number] 2.16.840.1.410063.3.579.2. 593 2001 Unknown [id number] 2.16.840.1.041942.3.579.2. 593 2001 Unknown [id number] 2.16.840.1.655197.3.579.2. 1286 2001 Unknown [id number] 2.16.840.1.644304.3.579.2. 1259 2001 Unknown [id number] 2.16.840.1.545794.3.579.2. 1258 2001 Unknown [id number] 2.16.840.1.325256.3.579.2. 9 2001 Unknown [id number] 2.16.840.1.005099.3.579.2. 125 2001 Unknown [id number] 2.16.840.1.050428.3.579.2. 1259 2001 Unknown [id number] 2.16.840.1.352980.3.579.2. 1258 2001 Unknown [id number] 2.16.840.1.196523.3.579.2. 1259 2001 Unknown [id number] 2.16.840.1.982674.3.579.2. 125 2001 Unknown [id number] 2.16.840.1.310921.3.579.2. 125 2001 Unknown [id number] 2.16.840.1.158474.3.579.2. 1258 2001 Unknown [id number] 2.16.840.1.081582.3.579.2. 1258 2001 Unknown [id number] 2.16.840.1.590965.3.579.2. 1259 1959 Self-pay 1959 Unknown [id number] 1959 Unknown [id number] Unknown [id number] 2.16.840.1.569415.3.579.2. 593 Unknown [id number] 2.16.840.1.304205.3.579.2. 531 Social History Date Type Detail Facility Start: 10-13-2023 End: 06-29-2024 Sex Assigned At [facility] [employer] Other Start: 2000 Sex Assigned At Female [facility] Start: 10-13-2023 End: 05-10-2025 Tobacco smoking status DEIS Never smoked tobacco [facility] Start: 06-29-2024 End: 04-30-2025 Alcoholic beverage intake Current drinker of alcohol (finding) [facility] Start: 10-13-2023 End: 06-29-2024 History of Social function [facility] Start: 05-24-2024 [facility] Start: 2001 Sex assigned at Not on file [facility] Tobacco smoking stat [facility] Unknown if ever smoked [facility] Work Phone: Start: 04-29-2015 End: 08-11-2024 Sex Female (finding) [place] Start: 05-10-2025 Alcoholic beverage intake Ex-drinker (finding) [facility] Medical Equipment Procedure Code Equipment Code Equipment Origin al Text Equipment Identifier Dates 1 strip by In Vi tro route Daily Use in the morning prior to breakfast, 1 hour after each meal for a total of 4times daily. [id number] Start: 05-08-2025 End: 06-07-2025 1 each by In Vit ro route Daily Use to check FSBS four times daily [id number] Start: 05-08-2025 End: 06-07-2025 Clinical Notes 12-26-2022 [...] Medical History: Diagnosis Date Anemia Gestational diabetes ([facility]) History of blood transfusion Lead poisoning Miscarriage ([facility]) Nonsmoker Post depression HISTORY PAST MEDICAL HISTORY SOCIAL HISTORY Past Medical History: Diagnosis Date Anemia Gestational diabetes (HHS-HCC) History of blood transfusion Lead poisoning Miscarriage ([facility]) Nonsmoker Post depression /anxiety Social History Tobacco [...] nursing note reviewed. Exam conducted with a pediatric pathologist present. Vitals: Estimated body mass index is 31.35 kg/m as calculated from the following: Height as of 01/06/23: 5' 3 . Weight as of this encounter: 177 lb. BP: 140/90 Patient's last menstrual period was 10/15/2024 (exact date). ASSESSMENT & PLAN ICD-10-CM 1. Third trimester ([facility]) Z34.93 POCT urinalysis dipstick manually resulted 2. 30 weeks gestation of ([facility]) Z3A.30 POCT urinalysis dipstick manually resulted 3. induced hypertension, antepartum ([facility]) O13.9 Creatinine Protein, urine, 24 hour [...] in this encounter [facility] 05-13-2025 Group counseling note Patient: Vimal Funes [...] Face to face time was 110 minutes. [employer] Work Phone: 05-13-2025 Miscellaneous Notes Patient: Vimal [...] was 110 minutes. documented in this encounter [facility] 05-07-2025 Telephone encounter Note Called pt to let her know that she did not pass her 3 hour glucose test and that I would be sending in supplies and referring her to diabetic education. [facility] 05-07-2025 Miscellaneous Notes Called pt to let her know that she did not pass her 3 hour glucose test and that I would be sending in supplies and referring her to diabetic education. documented in this encounter [facility] 04-30-2025 History of Presen t illness Narrative [...] Medical History: Diagnosis Date Anemia Gestational diabetes ([facility]) History of blood transfusion Lead poisoning Miscarriage ([facility]) Nonsmoker Post depression HISTORY PAST MEDICAL HISTORY SOCIAL HISTORY Past Medical History: Diagnosis Date Anemia Gestational diabetes ([facility]HS-HCC) History of blood transfusion Lead poisoning Miscarriage ([facility]) Nonsmoker Post depression /anxiety Social History Tobacco [...] resulted 2. -induced hypertension in third trimester ([facility]) O13.3 US biophysical profile w non stress test US OB follow up transabdominal approach labetalol (Normodyne) 300 MG tablet 3. Gestational diabetes mellitus (GDM) in third trimester, gestational diabetes method of control unspecified ([facility]) O24.419 US biophysical profile w non stress [...] in this encounter [facility] 04-25-2025 History of Presen t illness Narrative [...] Medical History: Diagnosis Date Anemia Gestational diabetes ([facility]) History of blood transfusion Lead poisoning Miscarriage ([facility]) Nonsmoker Post depression HISTORY PAST MEDICAL HISTORY SOCIAL HISTORY Past Medical History: Diagnosis Date Anemia [facility]ational [facility] History of blood transfusion Lead poisoning Miscarriage ([facility]) Nonsmoker Post depression /anxiety Social History [...] ASSESSMENT & PLAN ICD-10-CM 1. Second trimester ([facility]) Z34.92 2. 27 weeks gestation of ([facility]) Z3A.27 Patient presents for BP check. [...] in this encounter [facility] 04-11-2025 History of Presen t illness Narrative [...] History of blood transfusion Lead poisoning Miscarriage ([facility]) Nonsmoker Post depression HISTORY PAST MEDICAL HISTORY [...] ASSESSMENT & PLAN ICD-10-CM 1. Second trimester ([facility]) Z34.92 POCT urinalysis dipstick manually resulted 2. 25 weeks gestation of ([facility]) Z3A.25 3. Diabetes mellitus screening Z13.1 [...] in this encounter [facility] 03-14-2025 History of Presen t illness Narrative [...] History of blood transfusion Lead poisoning Miscarriage ([facility]) Nonsmoker Post depression /anxiety Social History Tobacco [...] nursing note reviewed. Exam conducted with a pediatric pathologist present. Vitals: Estimated body mass index is 29.23 kg/m as calculated from the following: Height as of 4/13/23: 5' 3 . Weight as of this encounter: 165 lb. BP: 112/76 Patient's last menstrual period was 10/15/2024 (exact date). ASSESSMENT & PLAN ICD-10-CM 1. Second trimester ([facility]) Z34.92 POCT urinalysis dipstick manually resulted 2. 21 weeks gestation of ([facility]) Z3A.21 Patient presents today for a routine obstetrics appointment. Patient is currently 21w3d with a Estimated Date of Delivery: 07/22/25. Patient has no complaints at this time and will return to clinic in 4 weeks. Documented by Diamond Borja LPN on behalf of: Jose Rodriguez DO documented in this encounter [facility] 02-20-2025 History of Presen t illness Narrative [...] nursing note reviewed. Exam conducted with a pediatric pathologist present. Vitals: Estimated body mass index is [...] nursing note reviewed. Exam conducted with a pediatric pathologist present. Vitals: Estimated body mass index is [...] or undercooked meat, [facility]. Patient has been consulted regarding [...] having a D&C Hysteroscopy performed at [facility] with Dr. Rodriguez. Pathology results was [...] nursing note reviewed. Exam conducted with a pediatric pathologist present. Vitals: Estimated body mass index is [...] vaginal bleeding. Patient to discuss date with Consulting Business Developer prior to leaving. Patient is able to [...] or undercooked meat, and [facility]. Patient has also [...] appointment to be seen soon as possible [employer] Other [employer] noteNo assessment information available [facility] Work Phone: evaluation note* Diagnosis Missed menses , unspecified gestational age Encounter for supervision of normal first in first trimester Nausea Nausea alone 7 weeks gestation of documented in this encounter [facility] [employer]* Diagnosis Miscarriage Unspecified spontaneous without mention of complication documented in this encounter [facility] [employer]* Diagnosis Postoperative examination Follow-up examination, following unspecified surgery documented in this encounter [facility] [employer]* Diagnosis 13 weeks gestation of Second trimester state, incidental documented in this encounter [facility] [employer] note* Diagnosis Screening, , for anatomic survey Encounter for anatomic survey Well woman exam with routine gynecological exam Routine gynecological examination STD exposure Second trimester state, incidental 18 weeks gestation of Urinary frequency documented in this encounter [facility] [employer]* Diagnosis Second trimester ([facility]) state, incidental [...] control unspecified ([facility]HCC) documented [facility] encounter [facility] Diagnosis Gestational diabetes mellitus (GDM), antepartum, gestational diabetes method of control unspecified ([facility]) Elevated glucose tolerance test Impaired glucose tolerance test documented in this encounter [facility] Healthcare[facility] note* Diagnosis Gestational diabetes mellitus (GDM) in third trimester, gestational diabetes method of control unspecified [facility] Third trimester ([facility]) state, incidental 30 weeks gestation of ([facility]) induced hypertension, antepartum ([facility]) Transient hypertension of , antepartum documented in this encounter [facility] HealthcareInstructionsNot on filedocumented in this encounterProMccull[facility] SystemInstructionsNot on filedocumented in this encounterProMccullough-[facility] Summary Purpose Family History No Family History Records FoundNo Family History Records FoundNo Family History Records FoundNo Family History Records FoundNo Family History Records Found Advance Directives Advance Directive Response Recorded Date/ Time Advance Directives No December 27 23 6:21am Additional Source Comments INFORMATION SOURCE (unrecogn ized section and content) DATE CREATED AUTHOR 09/24/2021 [facility] DATE CREATED AUTHOR AUTHOR'S ORGANIZ ATION 12/07/2022 [facility] DATE CREATED AUTHOR AUTHOR'S ORGANIZ ATION 08/15/2024 [facility] DATE CREATED AUTHOR AUTHOR'S ORGANIZ ATION 05/14/2025 [facility] DATE CREATED AUTHOR AUTHOR'S ORGANIZ ATION 05/16/2025 [facility] Special[facility] EPIC REASON FOR [...] gestational diabetes method of control unspecified Jose Rodriguez DO [address] [place] [address] Phone: tel: fax: [facility] [address] [place] [address] Phone: tel: fax: Referral ID Status Reason Start Date Expiration Date Visits Requested Visits Authorized [id number] Pending Review Specialty Services Required 05/09/2025 05/09/2026 1 1 Care Teams (unrecognized sec tion and content) Team Status: Inactive Member Role Status Dates Jennifer Huston NP-C Attending Provider Active Rn Diabetes Relationship Specialty Start Date End Date Vaishali Zapata MD [address] [place] [address] PCP - General Family Medicine 02/04/23 Rn Diabetes Relationship Specialty Start Date End Date Vaishali Zapata MD [address] [place] [address] PCP - General Family Medicine 02/04/23 Team Status: Active Member Role Status Dates PHYSICIAN NO FAMILY Primary Care Provider Active Team Status: Inactive Member Role Status Dates PHYSICIAN NO FAMILY Primary Care Provider Active Start: August 10, 2024 End: August 10, 2024 Jose Rodriguez DO Attending Provider Active Start : August 10, 2024 End: August 10, 2024 Rn Diabetes Relationship Specialty Start Date End Date Unallocated, [facility] [place] [address] PCP - General Family Medicine 08/03/24 Rn Diabetes Relationship Specialty Start Date End Date UnallocatedArjun MD [address] [place] [address] PCP - General Family Medicine 08/03/24 Rn Diabetes Relationship Specialty Start Date End Date Unallocated, Arjun Vo MD [facility] [place] [address] PCP - General Family Medicine 08/03/24 Rn Diabetes Relationship Specialty Start Date End Date Unallocated, Arjun Vo MD [facility] [place] [address] PCP - General Family Medicine 08/03/24 Rn Diabetes Relationship Specialty Start Date End Date Unallocated, Arjun Vo MD [facility] [place] [address] PCP - General Family Medicine 08/03/24 Rn Diabetes Relationship Specialty Start Date End Date Unallocated, Arjun Vo MD [facility] [facility] [place] [address] PCP - General Family Medicine 08/03/24 Rn Diabetes Relationship Specialty Start Date End Date Unallocated, Arjun Vo MD [facility] [place] [address] PCP - General Family Medicine 08/03/24 Rn Diabetes Relationship Specialty Start Date End Date Unallocated, Arjun Vo MD [facility] [place] [address] PCP - General Family Medicine 08/03/24 Rn Diabetes Relationship Specialty Start Date End Date Unallocated, Arjun Vo MD [facility] [address] [facility] [address] PCP - General Family Medicine 08/03/24 Rn Diabetes Relationship Specialty Start Date End Date Unallocated, Arjun Vo MD [facility] [place] [address] PCP - General Family Medicine 08/03/24 Rn Diabetes Relationship Specialty Start Date End Date Unallocated, Arjun Vo MD [address] [facility] [address] PCP - General Family Medicine 08/03/24 Rn Diabetes Relationship Specialty Start Date End Date Unallocated, Arjun Vo MD [address] [place] [address] PCP - General Family Medicine 08/03/24 Rn Diabetes Relationship Specialty Start Date End Date Unallocated, Arjun Vo MD [address] [place] [address] PCP - General Family Medicine 08/03/24 Goals [...] BE BASED ON THE PRIMARY CLINICAL RECORDS. [employer] [facility]. provides no warranty or guarantee of the accuracy or completeness of information in this document.
--- OUTSIDE RECORDS SUMMARY | 2025-05-20 17:22 | XMS_ITS | Encounter Summary ---
Author Organization [facility] Address [address] [place] [address] Care Team Providers Care Obstetrics And Gynecology Professor Name Role Phone Unallocated, Noms Provider Primary Care Provi krissy Encounter Details Date Type Department Care Team (Late st Contact Info) Description 08/10/2024 Abstract ARJUN PANG [facility] [place] [address] Jose Rodriguez DO [address], [place] [address] Social History Tobacco Use Types Packs/Day Years [...] 05/22/2025 2:40 PM EDT Routine ARJUN PANG [facility] [place] [address] Jose Rodriguez DO [address], [facility]11 documented as of this encounter Visit Diagnoses Not on filedocumented in this encounter Care Teams Obstetrics And Gynecology Professor Relationship Specialty Start Date End Date Unallocated, Noms Provider, [address] [place] [address] PCP - General Family Medicine 08/03/24 documented as of this encounter
--- OUTSIDE RECORDS SUMMARY | 2025-05-20 17:22 | XMS_ITS | Encounter Summary ---
Author Organization [facility] [employer] [facility] tem Address [id number] [place] [address] Care Team Providers Care Executive Coach Name Role Phone Unavailable Primary Care Provider Unavailabl e Encounter Details Date Type Department Care Team (Late Contact Info) Description 05/10/2025 Abstract Maternal- Medicine at [facility] [address] [place] [id number] External, Scanning Provider Social History Tobacco Use [...] Info) Description 06/04/2025 1:00 PM EDT Appointment [facility] - Ultrasound [address] [place] [id number] Jose Rodriguez, DO [address] [facility] [address] [place] [place] [address] documented as of this encounter Procedures Procedure [...] ORDERABLES Kayli l Result Performing Organization Address [facility] de Phone Number MANUALLY TRANSCRIBED RESULTS * Glucose, tolerance fasting (05/04/2025) Glucose Tolerance Test Fasting 108 MANUALLY TRANSCRIBED RESULTS Blood Venous blood / Unknown us Not In System Ref Prov LAB BLOOD ORDERABLES Kayli l Result Performing Organization Address [facility] Co de Phone Number MANUALLY TRANSCRIBED RESULTS * Glucose tolerance, 1 hour (05/04/2025) Glucose Tolerance Test 1 Hour 234 MANUALLY TRANSCRIBED RESULTS Blood Venous blood / Unknown us Not In System Ref Prov LAB BLOOD ORDERABLES Kayli l Result Performing Organization Address [facility] de Phone Number MANUALLY TRANSCRIBED RESULTS * 2nd hr Glucose Tolerance 100 gm load (05/04/2025) Glucose Tolerance Test 2 Hour 186 MANUALLY TRANSCRIBED RESULTS Blood Venous blood / Unknown us Not In System Ref Prov LAB BLOOD ORDERABLES Kayli l Result Performing Organization Address City/[facility] de Phone Number MANUALLY TRANSCRIBED RESULTS * Glucose 1h post 50g load (04/27/2025) Glucose, 1 hr PP 50GM dose 171 MANUALLY TRANSCRIBED RESULTS Blood Venous blood / Unknown us Not In System Ref Prov LAB BLOOD ORDERABLES Kayli l Result Performing Organization Address City/[facility] Co de Phone Number MANUALLY TRANSCRIBED RESULTS * Unlisted Lab Test (01/05/2025) 01/05/2025 us Not In System Ref Prov LAB BLOOD ORDERABLES Kayli l Result Performing Organization Address [facility] de Phone Number MANUALLY TRANSCRIBED RESULTS * Free Cell DNA (Non-[facility] Send Out) (01/05/2025) 01/05/2025 us Not In System Ref Prov LAB BLOOD ORDERABLES Kayli l Result Performing Organization Address [facility] de Phone Number MANUALLY TRANSCRIBED RESULTS * Hemoglobin A1c (01/05/2025) Hemoglobin A1C 5.0 4.0 - 6.0 % MANUALLY TRANSCRIBED RESULTS Blood Venous blood / Unknown us Scanning Provider External LAB BLOOD ORDERABLES Final Result Performing Organization Address City/[facility] Co de Phone Number MANUALLY TRANSCRIBED RESULTS documented in this encounter Visit Diagnoses Not on filedocumented in this encounter
--- OUTSIDE RECORDS SUMMARY | 2025-05-20 17:22 | XMS_ITS | Encounter Summary ---
Author Organization [facility] Address [address] [place] [address] Care Team Providers Care Casing Blower Name Role Phone Unallocated, Noms Provider Primary Care Provi krissy Encounter Details Date Type Department Care Team (Late st Contact Info) Description 03/11/2025 Results Follow-Up [facility] [place] [facility] [address] [place] [address] Glenna Butler LPN [address] [place] [address] [place] OB ANATOMY Social History [...] PM EDT Routine [facility] [place] [facility] [address] [facility] [phone] Jose Rodriguez DO [address] [place] [address] documented as of this encounter Visit Diagnoses Not on filedocumented in this encounter Care Teams Casing Blower Relationship Specialty Start Date End Date Unallocated, Noms Gilda, [address] [place] [address] PCP - General Family Medicine 08/03/24 documented as of this encounter
--- OUTSIDE RECORDS SUMMARY | 2025-05-20 17:22 | XMS_ITS | Encounter Summary ---
Author Organization [facility] Address [address] [place] [address] Care Team Providers Care Pricing Intern Name Role Phone Unallocated, Noms Provider Primary Care Provi krissy Encounter Details Date Type Department Care Team (Late st Contact Info) Description 08/10/2024 Abstract ARJUN PANG [facility] [place] [address] Jose Rodriguez DO [address], [place] [address] Social History Tobacco Use Types Packs/Day Years [...] 05/22/2025 2:40 PM EDT Routine ARJUN PANG [facility] [place] [address] Jose Rodriguez DO [address], [facility] documented as of this encounter Visit Diagnoses Not on filedocumented in this encounter Care Teams Pricing Intern Relationship Specialty Start Date End Date Unallocated, Noms Provider, [address] [place] [address] PCP - General Family Medicine 08/03/24 documented as of this encounter
--- OUTSIDE RECORDS SUMMARY | 2025-05-20 17:23 | XMS_ITS | Encounter Summary ---
Author Organization [facility] Address [address] [place] [address] Care Team Providers Care Chairman President And Chief Executive Officer Name Role Phone Unallocated, Noms Provider Primary Care Provi krissy Encounter Details Date Type Department Care Team (Late st Contact Info) Description 03/06/2025 Orders Only ARJUN PANG [address] [place] [address] Kavitha Almanza MA Social History Tobacco [...] 2:40 PM EDT Routine NOMMay PANG [address] [place] [address] Jose Rodriguez DO [address], [facility] documented as of this encounter Procedures Procedure Name Priority Date/Time Associated Diagnosis Comments PAP SMEAR Routine 02/20/2025 12:00 AM EDT documented in this encounter Results * Pap Smear (02/20/2025 12:00 AM EDT) Swab Cervical swab / Unknown us [facility] ORDERABLES Final Re sult EXTERNAL LAB documented in this encounter Visit Diagnoses Not on filedocumented in this encounter Care Teams Chairman President And Chief Executive Officer Relationship Specialty Start Date End Date Unallocated, Noms Provider, [address] [place] [address] PCP - General Family Medicine 08/03/24 documented as of this encounter
--- OUTSIDE RECORDS SUMMARY | 2025-05-20 17:23 | XMS_ITS | Patient Health Record ---
Author Organization [facility] in [place] Address [address] [place] [address] Care Team Providers Care Digital Production Operator Name Role Phone Mariia Seeela Primary Care Provider Allergies No Known Allergies Results Component Value Reference Range Notes CBC AUTO DIFF Reviewed date:07/23/2024 08:22:00 AM Interpretation: Performing Lab: Notes/Report: [facility] , White Blood Count 10.6 4.0-11.0 [...] 3/uL Performing Lab: see note ML - [facility] DRUG SCREEN RAPID (URINE) Reviewed date:07/23/2024 08:22:00 AM Interpretation: Performing Lab: Notes/Report: REEFLEX IF POSITIVE [facility] , Cannabinoid Screen Urine NEGATIVE [...] ng/mL Performing Lab: see note ML - [facility] LB GLYCOHEMOGLOBIN A1C Reviewed date:07/23/2024 08:22:00 AM Interpretation: Performing Lab: Notes/Report: [facility] , Glycohemoglobin A1C 4.9 4.5-6.2 % ADA RECOMMENDED LIMIT 4.0 - 6.0 ADA THERAPEUTIC TARGET < 7.0 ACTION SUGGESTED > 7.0 Estimated Average Glucose 94 Performing Lab: see note ML - [facility] LB Urine Culture, Routine Reviewed date:07/23/2024 08:22:00 AM Interpretation: Performing Lab: Notes/Report: [facility] , Urine Culture, Routine See Below For Report Urine Culture, Routine Urine Culture, Routine Mixed urogenital tami Urine Culture, Routine Urine Culture, Routine 10,000-25,000 col nan forming units per mL Urine Culture, Routine Urine Culture, Routine Performed at: CB - [facility] Urine Culture, Routine Urine Culture, Routine [address] [place], [place] [id number] Urine Culture, Routine Urine Culture, Routine Ed Tech: Riky Harris PhD, Phone: [phone] Urine Culture, Routine Performing Lab: see note LC - [facility] LB SEE REPORT - Group Work Program Director Id information not found for OBX-specific cattle producers legend CBC AUTO DIFF Reviewed date:08/03/2024 08:30:13 AM Interpretation: Performing Lab: Notes/Report: [facility] , White Blood Count 11.1 4.0-11.0 [...] see note ML - [facility] LB PREG QUANT HCG Reviewed date:08/03/2024 08:30:13 AM Interpretation: Performing Lab: Notes/Report: [facility] , HCG Quantitative 1656 5-50 0.2-1 WEEK 50-500 1-2 WEEKS 100-5,000 2-3 WEEKS 500-10,000 3-4 WEEKS 1,000-50,000 4-5 WEEKS 10,000-100,000 5-6 WEEKS 15,000-200,000 6-8 WEEKS 10,000-100,000 2-3 MONTHS Performing Lab: see note ML - [facility] LB PROF 14(COMP METB) Reviewed date:08/03/2024 08:30:13 AM Interpretation: Performing Lab: Notes/Report: [facility] , Sodium 140 136-145 mmol/L Potassium [...] Lab: see note ML - [facility] US OB transvaginal Reviewed date:08/03/2024 08:30:13 AM Interpretation: Performing Lab: Notes/Report: Source Facility: [facility]-[address] [place] [address] [place] [address] Ultrasound Report Signed Patient: VIMAL FUNES MR#: [id number] : 2000 Acct:[id number] Age/Sex: 24 / F ADM Date: 08/02/24 Loc: ER Attending Dr: Ordering Physician: Kishan Cosby Date of Service: 08/02/24 Procedure(s): US OB transvaginal Accession Number(s): [id number] cc: JENNIFER SEE ; Kishan Cosby [place] [address] Patient Name: VIMAL FUNES MRN: [id number] date: 2000 Sex: F Assigned Patient Location: ER Current Patient Location: ER Accession/Order Number: [id number] Exam Date: 08/02/2024 19:17 Report Date: 08/02/2024 [...] M.D. Signed By: 08/02/242126 DD/ 23 TD/TT: Shear Operator: [place] [address] Ultrasound Report Signed Patient: VIMAL FUNES MR#: [id number] : 2000 Acct:[id number] Age/Sex: 24 / F ADM Date: 08/02/24 Loc: ER Attending Dr: Ordering Physician: Kishan Cosby Date of Service: 08/02/24 Procedure(s): US OB transvaginal Accession Number(s): [id number] cc: JENNIFER SEE ; Kishan Marker [place] [address] Patient Name: VIMAL FUNES MRN: [id number] date: 2000 Sex: F Assigned Patient Location: ER Current Patient Location: ER Accession/Order Number: [id number] Exam Date: 19:17 Report Date: 08/02/2024 21:24 [...] M.D. Signed By: 08/02/242126 DD/ 23 TD/TT: Shear Operator: CBC AUTO DIFF Reviewed date:08/10/2024 08:58:56 AM Interpretation: Performing Lab: Notes/Report: [facility] , White Blood Count 8.9 4.0-11.0 [...] 3/uL Performing Lab: see note ML - [facility] PREG QUANT HCG Reviewed date:08/10/2024 08:58:56 AM Interpretation: Performing Lab: Notes/Report: [facility] Quantitative 240 5-50 0.2-1 WEEK 50-500 1-2 WEEKS 100-5,000 2-3 WEEKS 500-10,000 3-4 WEEKS 1,000-50,000 4-5 WEEKS 10,000-100,000 5-6 WEEKS 15,000-200,000 6-8 WEEKS 10,000-100,000 2-3 MONTHS Performing Lab: see note ML - [facility] PREG QUANT HCG Reviewed date:08/20/2024 11:36:34 AM Interpretation: Performing Lab: Notes/Report: [facility] Quantitative 6 5-50 0.2-1 WEEK 50-500 1-2 WEEKS 100-5,000 2-3 WEEKS 500-10,000 3-4 WEEKS 1,000-50,000 4-5 WEEKS 10,000-100,000 5-6 WEEKS 15,000-200,000 6-8 WEEKS 10,000-100,000 2-3 MONTHS Performing Lab: see note ML - [facility] LB PREG QUANT HCG Reviewed date:11/20/2024 01:38:35 PM Interpretation: Performing Lab: Notes/Report: [facility] , HCG Quantitative 6254 5-50 0.2-1 WEEK 50-500 1-2 WEEKS 100-5,000 2-3 WEEKS 500-10,000 3-4 WEEKS 1,000-50,000 4-5 WEEKS 10,000-100,000 5-6 WEEKS 15,000-200,000 6-8 WEEKS 10,000-100,000 2-3 MONTHS Performing Lab: see note ML - [facility] LB PREG QUANT HCG Reviewed date:11/22/2024 08:59:16 AM Interpretation: Performing Lab: Notes/Report: [facility] , HCG Quantitative 25008 5-50 0.2-1 WEEK 50-500 1-2 WEEKS 100-5,000 2-3 WEEKS 500-10,000 3-4 WEEKS 1,000-50,000 4-5 WEEKS 10,000-100,000 5-6 WEEKS 15,000-200,000 6-8 WEEKS 10,000-100,000 2-3 MONTHS Performing Lab: see note ML - [facility] CBC AUTO DIFF Reviewed date:01/07/2025 01:05:16 PM Interpretation: Performing Lab: Notes/Report: [facility] , White Blood Count 9.2 4.0-11.0 [...] 3/uL Performing Lab: see note ML - [facility] LB DRUG SCREEN RAPID (URINE) Reviewed date:01/07/2025 01:05:16 PM Interpretation: Performing Lab: Notes/Report: [facility] , Cannabinoid Screen Urine NEGATIVE [...] see note ML - [facility] LB GLYCOHEMOGLOBIN A1C Reviewed date:01/07/2025 01:05:16 PM Interpretation: Performing Lab: Notes/Report: [facility] , Glycohemoglobin A1C 5.0 4.5-6.2 % ADA RECOMMENDED LIMIT 4.0 - 6.0 ADA THERAPEUTIC TARGET < 7.0 ACTION SUGGESTED > 7.0 Estimated Average Glucose 97 Performing Lab: see note ML - [facility] LB Type and Screen Reviewed date:01/07/2025 01:05:16 PM Interpretation: Performing Lab: Notes/Report: [facility] , Blood Type A Positive Antibody Screen NEGATIVE Urine Culture, Routine Reviewed date:01/07/2025 01:05:16 PM Interpretation: Performing Lab: Notes/Report: [facility] , Urine Culture, Routine See Below For Report Urine Culture, Routine Urine Culture, Routine Mixed urogenital tami Urine Culture, Routine Urine Culture, Routine 50,000-100,000 co lony forming units per mL Urine Culture, Routine Urine Culture, Routine Performed at: - [facility] Urine Culture, Routine Urine Culture, Routine [address] [place], [place] [phone] Urine Culture, Routine Urine Culture, Routine Ed Tech: Riky Harris PhD, Phone: [phone] Urine Culture, Routine Performing Lab: see note LC - [facility] LB SEE REPORT - Group Work Program Director Id information not found for OBX-specific cattle producers legend Box Test Reviewed date:01/07/2025 01:05:16 PM Interpretation: Performing Lab: Notes/Report: [facility] , BOX Test Sent Out [employer] BOX Test Reference Lab UNITY BOX Test Date Sent 01-05-25 Performing Lab: see note - [facility] LB US OB cervical length Reviewed date:03/14/2025 10:39:54 AM Interpretation: Performing Lab: Notes/Report: Source Facility: [place] [address] Ultrasound Report Signed Patient: VIMAL FUNES MR#: [id number] : 2000 Acct:[id number] Age/Sex: 24 / F ADM Date: 03/08/25 Loc: US Attending Dr: Mackenzie Rodriguez D.O. Ordering Physician: Mackenzie Rodriguez D.O. Date of Service: 03/08/25 Procedure(s): US OB cervical length Accession Number(s): [id number] cc: JENNIFER SEE ; Mackenzie Rodriguez D.O. [place] [address] Patient Name: VIMAL FUNES MRN: [facility]:[id number] date: 2000 Sex: F Assigned Patient Location: Current Patient Location: Accession/Order Number: [id number] Exam Date: 03/08/2025 20:31 Report Date: 03/08/2025 [...] Knapp M.D. 03/08/2025 8:36 PM Dictation Location: [place] [address] Electronically authenticated by: [id number] Y Date: 03/08/2025 20:36 Dictated By: Shivam Knapp D.O. Signed By: 03/08/252037 DD/ 35 TD/TT: Shear Operator: [place] [address] Ultrasound Report Signed Patient: VIMAL FUNES MR#: [id number] : 2000 Acct:[id number] Age/Sex: 24 / F ADM Date: 03/08/25 Loc: US Attending Dr: Mackenzie Rodriguez D.O. Ordering Physician: Mackenzie Rodriguez D.O. Date of Service: 03/08/25 Procedure(s): US OB cervical length Accession Number(s): [id number] cc: JENNIFER SEE ; Mackenzie Rodriguez D.O. [place] [address] Patient Name: VIMAL FUNES MRN: [id number] date: 2000 Sex: F Assigned Patient Location: US Current Patient Location: US Accession/Order Number: [id number] Exam Date: 03/08/2025 20:31 Report Date: 03/08/2025 [...] Knapp M.D. 03/08/2025 8:36 PM Dictation Location: [place] [address] Electronically authenticated by: [id number] Y Date: 03/08/2025 20:36 Dictated By: Shivam Knapp D.O. Signed By: 03/08/252037 DD/ 35 TD/TT: Shear Operator: US OB anatomy Reviewed date:03/14/2025 10:39:54 AM Interpretation: Performing Lab: Notes/Report: Source Facility: [facility] [place] [address] Ultrasound Report Signed Patient: VIMAL FUNES MR#: [id number] : 2000 Acct:[id number] Age/Sex: 24 / F ADM Date: 03/08/25 Loc: US Attending Dr: Mackenzie Rodriguez D.O. Ordering Physician: Mackenzie Rodriguez D.O. Date of Service: 03/08/25 Procedure(s): US OB anatomy Accession Number(s): [id number] cc: JENNIFER SEE ; Mackenzie Rodriguez D.O. [place] [address] Patient Name: VIMAL FUNES MRN: [id number] date: 2000 Sex: F Assigned Patient Location: US Current Patient Location: US Accession/Order Number: [id number] Exam Date: 03/08/2025 20:31 Report Date: 03/08/2025 [...] Knapp M.D. 03/08/2025 8:36 PM [facility] by: [id number] Y Date: 03/08/2025 20:36 Dictated By: Shivam Knapp D.O. Signed By: 03/08/252037 DD/ 35 TD/TT: Shear Operator: [place] [address] Ultrasound Report Signed Patient: VIMAL FUNES MR#: [id number] : 2000 Acct:[id number] Age/Sex: 24 / F ADM Date: 03/08/25 Loc: US Attending Dr: Mackenzie Rodriguez D.O. Ordering Physician: Mackenzie Rodriguez D.O. Date of Service: 03/08/25 Procedure(s): US OB anatomy Accession Number(s): [id number] cc: JENNIFER SEE ; Mackenzie Rodriguez D.O. [place] [id number] Patient Name: VIMAL FUNES MRN: [id number] date: 2000 Sex: F Assigned Patient Location: US Current Patient Location: US Accession/Order Number: [id number] Exam Date: 03/08/2025 20:31 Report Date: 03/08/2025 [...] Knapp M.D. 03/08/2025 8:36 PM Dictation Location: [place] [address] Electronically authenticated by: [id number] Y Date: 03/08/2025 20:36 Dictated By: Shivam Knapp D.O. Signed By: 03/08/252037 DD/ 35 TD/TT: Shear Operator: US OB incomplete anatomy Reviewed date:03/25/2025 09:01:39 AM Interpretation: Performing Lab: Notes/Report: Source Facility: [place] [address] Ultrasound Report Signed Patient: VIMAL FUNES MR#: [id number] : 2000 Acct:[id number] Age/Sex: 24 / F ADM Date: 03/23/25 Loc: US Attending Dr: Mackenzie Rodriguez D.O. Ordering Physician: Mackenzie Rodriguez D.O. Date of Service: 03/23/25 Procedure(s): US OB incomplete anatomy Accession Number(s): [id number] cc: JENNIFER SEE ; Mackenzie Rodriguez D.O. [place] [address] Patient Name: VIMAL FUNES MRN: [id number] date: 2000 Sex: F Assigned Patient Location: Current Patient Location: US Accession/Order Number: [id number] Exam Date: 03/25/2025 08:23 Report Date: 03/25/2025 [...] Brown M.D. 03/25/2025 8:25 AM Dictation Location: [place] [address] Electronically authenticated by: [id number] Y Date: 03/25/2025 08:25 Dictated By: Meghana Brown M.D. Signed By: 03/25/25826 DD/ 4 TD/TT: Shear Operator: [place] [address] Ultrasound Report Signed Patient: VIMAL FUNES MR#: [id number] : 2000 Acct:[id number] Age/Sex: 24 / F ADM Date: 03/23/25 Loc: US Attending Dr: Mackenzie Rodriguez D.O. Ordering Physician: Mackenzie Rodriguez D.O. Date of Service: 03/23/25 Procedure(s): US OB incomplete anatomy Accession Number(s): [id number] cc: JENNIFER SEE ; Mackenzie Rodriguez D.O. [place] [address] Patient Name: VIMAL FUNES MRN: [id number] date: 2000 Sex: F Assigned Patient Location: Current Patient Location: US Accession/Order Number: [id number] Exam Date: 03/25/2025 08:23 Report Date: 03/25/2025 [...] Brown M.D. 03/25/2025 8:25 AM Dictation Location: [place] [address] Electronically authenticated by: [id number] Y Date: 03/25/2025 08:25 Dictated By: Meghana Brown M.D. Signed By: 03/25/25826 DD/ 4 TD/TT: Shear Operator: [place] Reviewed date:05/06/2025 10:03:33 AM Interpretation: Performing Lab: Notes/Report: [facility] , Blood Urea Nitrogen 8.0 7.0-18.0 mg/dL Performing Lab: see note ML - [facility] LB CBC AUTO DIFF Reviewed date:05/06/2025 10:03:33 AM Interpretation: Performing Lab: Notes/Report: [facility] , White Blood Count 12.5 4.0-11.0 [...] 3/uL Performing Lab: see note ML - [facility] LB CREATININE Reviewed date:05/06/2025 10:03:33 AM Interpretation: Performing Lab: Notes/Report: [facility] , Creatinine 0.37 0.55-1.02 mg/dL Estimated GFR ( Ashley >60 >=60 mL/min/1.73m 2 Estimated GFR (Non- Hortencia >60 >=60 mL/min/1.73m 2 Performing Lab: see note ML - [facility] LDH Reviewed date:05/06/2025 10:03:33 AM Interpretation: Performing Lab: Notes/Report: [facility] , Lactate Dehydrogenase 163 81-234 U/L Performing Lab: see note ML - [facility] PTT Reviewed date:05/06/2025 10:03:33 AM Interpretation: Performing Lab: Notes/Report: [facility] , Partial Thromboplastin Time 25.7 22.3-36.2 sec Performing Lab: see note ML - [facility] SGOT Reviewed date:05/06/2025 10:03:33 AM Interpretation: Performing Lab: Notes/Report: [facility] , Aspartate Amino Transferase 23 15-37 U/L Performing Lab: see note ML - [facility] URIC ACID SERUM Reviewed date:05/06/2025 10:03:33 AM Interpretation: Performing Lab: Notes/Report: [facility] , Uric Acid 3.7 2.6-6.0 mg/dL Performing Lab: see note ML - [facility] Prothrombin Time INR Reviewed date:05/06/2025 10:03:33 AM Interpretation: Performing Lab: Notes/Report: [facility] , Prothrombin Time 10.1 9.0-11.6 sec INR 0.95 DESIRED INR: 2.0-3.0 CONDITIONS NOT LISTED BELOW 2.5-3.5 FOR PROSTHETIC HEART VALVE REPLACEMENT 2.5-3.5 RECURRENT THROMBOSIS Performing Lab: see note ML - [facility] LB Glucose Tolerance 3 Hour Reviewed date:05/06/2025 10:03:33 AM Interpretation: Performing Lab: Notes/Report: [facility] , Glucose Tolerance 3 Hour GLU FAST 108H (<95) Col: 05/04/25 0723 GLU 1HR 234H (<180) Col: 05/04/25 0826 GLU 2HR 186H (<155) Col: 05/04/25 0927 GLU 3HR 133 (<140) Col: 05/04/25 1028 Performing Lab: see note ML - [facility] LB US OB BPP w non-stress Reviewed date:05/06/2025 10:03:33 AM Interpretation: Performing Lab: Notes/Report: Source Facility: [place] [address] [place] [address] Ultrasound Report Signed Patient: VIMAL FUNES MR#: [id number] : 2000 Acct:[id number] Age/Sex: 25 / F ADM Date: 05/04/25 Loc: [facility] [address]: Rossana Leach Ordering Physician: Rossana Leach Date of Service: 05/04/25 Procedure(s): US OB BPP w non-stress Accession Number(s): [id number] cc: Rossana Leach; JENNIFER SEE [place] [address] Patient Name: VIMAL FUNES MRN: [id number]:[id number] date: 2000 Sex: F Assigned Patient Location: [facility] Current Patient Location: [facility] Accession/Order Number: [id number] Exam Date: 05/04/2025 12:08 Report Date: 05/04/2025 12:09 At the request of: ROSSANA LEACH Procedure: US OB BPP w non-stress Biophysical profile. Reason for exam: Gestational diabetes COMPARISON: None TECHNIQUE: Transabdominal imaging of the gravid uterus was obtained. FINDINGS: The hotel guest service agent reports a BPP of 8 out of 8. DANYA is normal at 12.4 cm. heart rate 150 bpm. US/US OB BPP w non-stress IMPRESSION: BPP 8 out of 8. Impression dictated by: Bulmaro Arias Jr., D.O. 05/04/2025 12:09 PM Dictation Location: [facility] Electronically authenticated by: [id number] Y Date: 05/04/2025 12:09 Dictated By: Bulmaro Arias M.D. Signed By: 05/04/25 1212 DD/ 1209 TD/TT: Shear Operator: [place] [address] Ultrasound Report Signed Patient: VIMAL FUNES MR#: [id number] : 2000 Acct:[id number] Age/Sex: 25 / F ADM Date: 05/04/25 Loc: [place] [address]: Rossana Leach Ordering Physician: Rossana Leach Date of Service: 05/04/25 Procedure(s): US OB BPP w non-stress Accession Number(s): [id number] cc: Rossana Leach; JENNIFER SEE [place] [id number] Patient Name: VIMAL FUNES MRN: [id number] date: 2000 Sex: F Assigned Patient Location: [facility] Current Patient Location: [facility] Accession/Order Number: [id number] Exam Date: 05/04/2025 12:08 Report Date: 05/04/2025 12:09 At the request of: ROSSANA LEACH Procedure: US OB fet al BPP w non-stress Biophysical profile. Reason for exam: Gestational diabetes COMPARISON: None TECHNIQUE: Transabdominal imaging of the gravid uterus was obtained. FINDINGS: The hotel guest service agent reports a BPP of 8 out of 8. DANYA is normal at 12.4 cm. heart rate 150 bpm. US/US OB BPP w non-stress IMPRESSION: BPP 8 ou t of 8. Impression dictated by: Bulmaro Arias Jr., D.O. 05/04/2025 12:09 PM Dictation Location: [facility] Electronically authenticated by: [id number] Y Date: 05/04/2025 12:09 Dictated By: Bulmaro Arias M.D. Signed By: 05/04/25 1212 DD/ 1209 TD/TT: Shear Operator: US OB growth Reviewed date:05/06/2025 10:03:33 AM Interpretation: Performing Lab: Notes/Report: Source Facility: [place] [address] Ultrasound Report Signed Patient: IVMAL FUNES MR#: [id number] : 2000 Acct:[id number] Age/Sex: 25 / F ADM Date: 05/04/25 Loc: [facility]-[address]: Rossana Leach Ordering Physician: Rossana Leach Date of Service: 05/04/25 Procedure(s): US OB growth Accession Number(s): [id number] cc: Rossana Leach; JENNIFER SEE [place] [address] Patient Name: VIMAL FUNES MRN: [id number] date: 2000 Sex: F Assigned Patient Location: [facility] Current Patient Location: [facility] Accession/Order Number: [id number] Exam Date: 05/04/2025 12:06 Report Date: 05/04/2025 [...] weight. Impression dictated by: Bulmaro Arias Jr., DGeneOGene 05/04/2025 12:08 PM Dictation Location: [facility] Electronically authenticated by: [id number] Y Date: 05/04/2025 12:08 Dictated By: Bulmaro Arias M.D. Signed By: 05/04/25 1211 DD/ 1208 TD/TT: Shear Operator: [place] [address] Ultrasound Report Signed Patient: VIMAL FUNES MR#: [id number] : 2000 Acct:[id number] Age/Sex: 25 / F ADM Date: 05/04/25 Loc: [facility] 250-[address]: Rossana Leach Ordering Physician: Rossana Leach Date of Service: 05/04/25 Procedure(s): US OB growth Accession Number(s): [id number] cc: Rossana Leach; JENNIFER SEE [place] [address] Patient Name: VIMAL FUNES MRN: [id number] date: 2000 Sex: F Assigned Patient Location: [facility] Current Patient Location: [facility] Accession/Order Number: [id number] Exam Date: 05/04/2025 12:06 Report Date: 05/04/2025 [...] PM Dictation Location: [facility] Electronically authenticated by: [id number] Y Date: 05/04/2025 12:08 Dictated By: Bulmaro Arias M.D. Signed By: 05/04/25 1211 DD/ 1208 TD/TT: Shear Operator: Total Protein 24 Hour Urine Reviewed date:05/07/2025 09:01:34 AM Interpretation: Performing Lab: Notes/Report: [facility] , Total Protein Urine Random <6.0 <=11.9 mg/dL Total Volume 24 Hour Urine 3700 Performing Lab: see note ML - [facility] LB US OB BPP w non-stress Reviewed date:05/13/2025 12:03:41 PM Interpretation: Performing Lab: Notes/Report: Source Facility: [facility]-[address] [place] [address] Ultrasound Report Signed Patient: VIMAL FUNES MR#: [id number] : 2000 Acct:[id number] Age/Sex: 25 / F ADM Date: 05/11/25 Loc: [facility] 253-[address]: Rossana Leach Ordering Physician: Rossana Leach Date of Service: 05/11/25 Procedure(s): US OB BPP w non-stress Accession Number(s): [id number] cc: Rossana Leach; JENNIFER SEE [place] [address] Patient Name: VIMAL FUNES MRN: [id number] date: 2000 Sex: F Assigned Patient Location: [facility] Current Patient Location: [facility] Accession/Order Number: [id number] Exam Date: 05/11/2025 12:01 Report Date: 05/11/2025 12:02 At the request of: ROSSANA LEACH Procedure: US OB BPP w non-stress Biophysical profile. Reason for exam: Gestational diabetes COMPARISON: 05/04/2025 TECHNIQUE: Transabdominal imaging of the gravid uterus was obtained. FINDINGS: The hotel guest service agent reports a BPP of 8 out of 8. DANYA is normal at 11.9 cm. heart rate 138 bpm. US/US OB BPP w non-stress IMPRESSION: BPP 8 out of 8. Impression dictated by: Bulmaro Arias Jr., D.O. 05/11/2025 12:02 PM Dictation Location: [facility] Electronically authenticated by: [id number] Y Date: 05/11/2025 12:02 Dictated By: Bulmaro Arias M.D. Signed By: 05/11/25 1204 DD/ 120 TD/TT: Shear Operator: [place] [address] Ultrasound Report Signed Patient: VIMAL FUNES MR#: [id number] : 2000 Acct:[id number] Age/Sex: 25 / F ADM Date: 05/11/25 Loc: [facility] 253-[address]: Rossana Leach Ordering Physician: Rossana Leach Date of Service: 05/11/25 Procedure(s): US OB BPP w non-stress Accession Number(s): [id number] cc: Rossana Leach; JENNIFER SEE [place] [address] Patient Name: VIMAL FUNES MRN: [id number] date: 2000 Sex: F Assigned Patient Location: [facility] Current Patient Location: [facility] Accession/Order Number: [id number] Exam Date: 05/11/2025 12:01 Report Date: 05/11/2025 12:02 At the request of: ROSSANA LEACH Procedure: US OB fet al BPP w non-stress Biophysical profile. Reason for exam: Gestational diabetes COMPARISON: 05/04/2025 TECHNIQUE: Transabdominal imaging of the gravid uterus was obtained. FINDINGS: The hotel guest service agent reports a BPP of 8 out of 8. DANYA is normal at 11.9 cm. heart rate 138 bpm. US/US OB BPP w non-stress IMPRESSION: BPP 8 ou t of 8. Impression dictated by: Bulmaro Arias Jr., D.O. 05/11/2025 12:02 PM Dictation Location: [facility] Electronically authenticated by: [id number] Y Date: 05/11/2025 12:02 Dictated By: Bulmaro Arias M.D. Signed By: 05/11/25 1204 DD/ 1202 TD/TT: Shear Operator: [place] Reviewed date:05/20/2025 11:23:08 AM Interpretation: Performing Lab: Notes/Report: [facility] , Blood Urea Nitrogen 9.0 7.0-18.0 mg/dL Performing Lab: see note ML - [facility] LB CBC AUTO DIFF Reviewed date:05/20/2025 11:23:08 AM Interpretation: Performing Lab: Notes/Report: [facility] [facility] White Blood Count 15.0 4.0-11.0 10 3/uL Red Blood Count 4.17 4.20-5.40 10 6/uL Hemoglobin 13.3 12.0-16.0 g/dL Hematocrit 38.1 36.0-48.0 % Mean Corpuscular Volume 91.4 81.0-99.0 fL Mean Corpuscular Hemoglobin 31.9 26.7-34.0 pg Mean Corpuscular HGB Conc 34.9 29.9-35.2 g/dL Red Cell Distribution Width 12.7 11.0-15.0 % Platelet Count 223 150-450 10 3/uL Mean Platelet Volume 11.2 9.5-13.5 fL Neutrophils Percent Auto 84.1 43.0-75.0 % Lymphocytes Percent Auto 9.0 20.5-60.0 % Monocytes Percent Auto 4.7 1.7-12.0 % Eosinophils Percent Auto 1.7 0.9-7.0 % Basophils Percent Auto 0.1 0.2-2.0 % Immature Granulocytes Pct Auto 0.4 0.0-0.5 % Neutrophils Absolute Auto 12.6 1.4-6.5 10 3/uL Lymphocytes Absolute Auto 1.4 1.2-3.8 10 3/uL Monocytes Absolute Auto 0.7 0.3-0.8 10 3/uL Eosinophils Absolute Auto 0.3 0.0-0.7 10 3/uL Basophils Absolute Auto 0.0 0.0-0.1 10 3/uL Immature Granulocytes Abs Auto 0.06 0.00-0.03 10 3/uL Performing Lab: see note ML - [facility] LB CREATININE Reviewed date:05/20/2025 11:23:08 AM Interpretation: Performing Lab: Notes/Report: [facility] , Creatinine 0.38 0.55-1.02 mg/dL Estimated GFR ( Ashley >60 >=60 mL/min/1.73m 2 Estimated GFR (Non- Hortencia >60 >=60 mL/min/1.73m 2 Performing Lab: see note ML - [facility] LB LDH Reviewed date:05/20/2025 11:23:08 AM Interpretation: Performing Lab: Notes/Report: [facility] , Lactate Dehydrogenase 147 81-234 U/L Performing Lab: see note ML - [facility] LB PTT Reviewed date:05/20/2025 11:23:08 AM Interpretation: Performing Lab: Notes/Report: [facility] , Partial Thromboplastin Time 25.6 22.3-36.2 sec Performing Lab: see note ML - [facility] LB SGOT Reviewed date:05/20/2025 11:23:08 AM Interpretation: Performing Lab: Notes/Report: [facility] , Aspartate Amino Transferase 18 15-37 U/L Performing Lab: see note ML - [facility] LB URIC ACID SERUM Reviewed date:05/20/2025 11:23:08 AM Interpretation: Performing Lab: Notes/Report: [facility] , Uric Acid 4.0 2.6-6.0 mg/dL Performing Lab: see note ML - [facility] LB Prothrombin Time INR Reviewed date:05/20/2025 11:23:08 AM Interpretation: Performing Lab: Notes/Report: [facility] , Prothrombin Time 10.2 9.0-11.6 sec INR 0.96 DESIRED INR: 2.0-3.0 CONDITIONS NOT LISTED BELOW 2.5-3.5 FOR PROSTHETIC HEART VALVE REPLACEMENT 2.5-3.5 RECURRENT THROMBOSIS Performing Lab: see note ML - [facility] LB US OB BPP w non-stress Reviewed date:05/20/2025 11:23:08 AM Interpretation: Performing Lab: Notes/Report: Source Facility: [facility]-[address] [place] [address] [address] Ultrasound Report Signed Patient: VIMAL FUNES MR#: [id number] : 2000 Acct:[id number] Age/Sex: 25 / F ADM Date: 05/18/25 Loc: US Attending Dr: Rossana Leach Ordering Physician: Rossana Leach Date of Service: 05/18/25 Procedure(s): US OB BPP w non-stress Accession Number(s): [id number] cc: Rossana Leach; JENNIFER SEE [place] [id number] Patient Name: VIMAL FUNES MRN: [id number] date: 2000 Sex: F Assigned Patient Location: [facility] Current Patient Location: Accession/Order Number: [id number] Exam Date: 05/18/2025 11:16 Report Date: 05/18/2025 [...] BPP w non-stress IMPRESSION: Biophysical profile score: 8/8 Impression dictated by: Heriberto Acharya M.D. 05/18/2025 5:08 PM Dictation Location: [place] [address] Electronically authenticated by: [id number] Y Date: 05/18/2025 17:08 Dictated By: Heriberto Acharya M.D. Signed By: 05/18/252016 DD/ 07 TD/TT: Shear Operator: [place] [address] Ultrasound Report Signed Patient: VIMAL FUNES MR#: [id number] : 2000 Acct:[id number] Age/Sex: 25 / F ADM Date: 05/18/25 Loc: US Attending Dr: Rossana Leach Ordering Physician: Rossana Leach Date of Service: 05/18/25 Procedure(s): US OB BPP w non-stress Accession Number(s): [id number] cc: Rossana Leach; JENNIFER SEE [place] [id number] Patient Name: VIMAL FUNES MRN: [id number] date: 2000 Sex: F Assigned Patient Location: [facility] Current Patient Location: Accession/Order Number: [id number] Exam Date: 05/18/2025 11:16 Report Date: 05/18/2025 17:08 At the request of: ROSSANA LEACH Procedure: US OB fet al BPP w non-stress US OB BPP w non-stress 05/18/2025 11:31 AM SIGNS AND SYMPTOMS: Hypertension, gestational diabetes mellitus PROTOCOL: Transabdominal sonographic imaging of the gravid uterus COMPARISON: None FINDINGS: heart rate: 14 7 bpm Amniotic fluid index : 12.15 cm the deepest vertical pocket measures 4.0 cm Estimated gestationa l age: 30 weeks 5 days Biophysical profile: breathing movements: 2/2 Gross body movements : 2/2 tone: 2/2 Amniotic fluid volum e: 2/2 US/US OB BPP w non-stress IMPRESSION: Biophysical profile score: 8/8 Impression dictated by: Heriberto Acharya M.D. 05/18/2025 5:08 PM Dictation Location: [place] [address] Electronically authenticated by: [id number] Y Date: 05/18/2025 17:08 Dictated By: Heriberto Acharya M.D. Signed By: 05/18/252016 DD/ 07 TD/TT: Shear Operator: Glucose 1 Hour Reviewed date:04/29/2025 09:37:12 AM Interpretation: Performing Lab: Notes/Report: [facility] , Glucose 1 Hour 171 <130 mg/dL Performing Lab: see note ML - [facility] LB CBC AUTO DIFF Reviewed date:04/29/2025 09:37:12 AM Interpretation: Performing Lab: Notes/Report: [facility] , White Blood Count 12.5 4.0-11.0 [...] see note ML - [facility] LB IGP,Aptima HPV,Age Gdln Reviewed date:02/25/2025 03:13:18 PM Interpretation: Performing Lab: Notes/Report: SPATULA-ALONE ENDOCERVIX [facility] , Age Gdln ACOG Testing Note . TESTS RESULT FLAG UNITS REF RANGE LAB Clinician Provided Cytology Information Source.............End ocervix No. of containers..01 ThinPrep Vial Age Ramirez Arndt... FLAG LEGEND: L-Low Normal,H-High Normal,LL-Alert Low,HH-Alert High <-Panic Low,>-Panic High,A-Abnormal,AA-Cri tical Abnormal Performed at: 01 =G [facility] [address] [address] Jenise Byrne MD, IGP, rfx Aptima HPV ASCU Note . TESTS RESULT FLAG UNITS REF RANGE LAB DIAGNOSIS: 02 NEGATIVE FOR INTRAEPITHELIAL LESION OR MALIGNANCY. Specimen adequacy: 02 Satisfactory for evaluation. Endocervical and/or squamous metaplastic cells (endocervical component) are present. Performed by: Hussein Alvarez, Mail Handlers Supervisor ([facility]) . 02 Note: Note 02 [...] Low,>-Panic High,A-Abnormal,AA-Cri tical Abnormal Performed at: [address] [address] Jenise Byrne MD, Performed at: = - [address] [id number] Ed Tech: Jenise Byrne MD, Phone: [phone] Performed at: [address] [id number] Ed Tech: Jenise Byrne MD, Phone: [phone] Performing Lab: see note [facility] HBsAg Screen Reviewed date:01/07/2025 01:05:16 PM Interpretation: Performing Lab: Notes/Report: [facility] HBsAg Screen Negative Negative Performed at: [address] [id number] Ed Tech: Andrew Harris PhD, Phone: [phone] Performing Lab: see note [facility] HCV Antibody RFX to Quant PC R Reviewed date:01/07/2025 01:05:16 PM Interpretation: Performing Lab: Notes/Report: [facility] HCV Ab Non Reactive Non Reactive Interpretation: Comment . Not infected with HCV unless early or acute infection is suspected (which may be delayed in an immunocompromised individual), or other evidence exists to indicate HCV infection. Performed at: [address] [id number] Ed Tech: Andrew Harris PhD, Phone: [phone] Performing Lab: see note [facility] Rapid Plasma Reagin, Quant Reviewed date:01/07/2025 01:05:16 [...] utilized, such as Treponema pallidum (Syphilis) Screening Jacobson (421849) or Rapid Plasma Reagin (RPR) Test With Reflex to Quantitative RPR and Confirmatory Treponema pallidum Antibodies (209964). Performed at: [address] [id number] Ed Tech: Andrew Harris PhD, Phone: [phone] Performing Lab: see note [facility] HIV Ab/p24 Ag with Reflex Reviewed date:01/07/2025 01:05:16 PM Interpretation: Performing Lab: Notes/Report: [facility] , HIV Ab/p24 Ag Screen Non Reactive Non Reactive HIV-1/HIV-2 antibodies and HIV-1 p24 antigen were NOT detected. There is no laboratory evidence of HIV infection. HIV Negative Performed at: [address] [id number] Ed Tech: Andrew Harris PhD, Phone: [phone] Performing Lab: see note [facility] RUBELLA AB IGG Reviewed date:01/07/2025 01:05:16 PM Interpretation: Performing Lab: Notes/Report: [facility] , Rubella Antibodies, IgG 1.57 Immune > 0.99 index Non-immune <0.90 Equivocal 0.90 - 0.99 Immune >0.99 Performed at: [address] [id number] Ed Tech: Andrew Harris PhD, Phone: [phone] Performing Lab: see note [facility] US OB transvaginal Reviewed date:08/10/2024 08:58:56 AM Interpretation: Performing Lab: Notes/Report: Source Facility: [place] [address] [place] [address] Ultrasound Report Signed Patient: VIMAL FUNES MR#: [id number] : 2000 Acct:[id number] Age/Sex: 24 / F ADM Date: 08/10/24 Loc: SURGOUT Attending Dr: Mackenzie Rodriguez D.O. Ordering Physician: Mackenzie Rodriguez D.O. Date of Service: 08/10/24 Procedure(s): US OB transvaginal Accession Number(s): [id number] cc: JENNIFER SEE ; Mackenzie Rodriguez D.O. [address] [address] Patient Name: VIMAL FUNES MRN: [id number] date: 2000 Sex: F [facility] Current Patient Location: [facility] Accession/Order Number: [id number] Exam Date: 08/10/2024 08:10 Report Date: 08/10/2024 [...] M.D. Signed By: 08/10/2447 DD/ 3 TD/TT: Shear Operator: [place] [id number] Ultrasound Report Signed Patient: VIMAL FUNES MR#: [id number] : 2000 Acct:[id number] Age/Sex: 24 / F ADM Date: 08/10/24 Loc: SURGOUT Attending Dr: Mackenzie Rodriguez D.O. Ordering Physician: Mackenzie Rodriguez D.O. Date of Service: 08/10/24 Procedure(s): US OB transvaginal Accession Number(s): [id number] cc: JENNIFER SEE ; Mackenzie Rodriguez D.O. [place] [address] Patient Name: VIMAL FUNES MRN: [id number] date: 2000 Sex: F Assigned [facility] Current Patient Location: [facility] Accession/Order Number: [id number] Exam Date: 08:10 Report Date: 08/10/2024 08:44 [...] Herrera M.D. Signed By: 08/10/2447 DD/ TD/TT: Shear Operator: Box Test Reviewed date:07/23/2024 08:22:00 AM Interpretation: Performing Lab: Notes/Report: [facility] , BOX Test Sent Out [facility] Test Reference Lab [facility] Test Date Sent 07/21/24 Performing Lab: see note [facility] LB HBsAg Screen Reviewed date:07/23/2024 08:22:00 AM Interpretation: Performing Lab: Notes/Report: [facility] , HBsAg Screen Negative Negative Performed at: [address] [id number] Ed Tech: Andrew Harris PhD, Phone: [phone] Performing Lab: see note [facility] LB HCV Antibody RFX to Quant PC R Reviewed date:07/23/2024 08:22:00 AM Interpretation: Performing Lab: Notes/Report: [facility] , HCV Ab Non Reactive Non Reactive Interpretation: Comment . Not infected with HCV unless early or acute infection is suspected (which may be delayed in an immunocompromised individual), or other evidence exists to indicate HCV infection. Performing Lab: see note [facility] LB Rapid Plasma Reagin, Quant Reviewed [...] utilized, such as Treponema pallidum (Syphilis) Screening Jacobson (992452) or Rapid Plasma Reagin (RPR) Test With Reflex to Quantitative RPR and Confirmatory Treponema pallidum Antibodies (483832). Performed at: [address] [id number] Ed Tech: Andrew Harris PhD, Phone: [phone] Performing Lab: see note [facility] LB HIV Ab/p24 Ag with Reflex Reviewed date:07/23/2024 08:22:00 AM Interpretation: Performing Lab: Notes/Report: [facility] , HIV Ab/p24 Ag Screen Non Reactive Non Reactive HIV-1/HIV-2 antibodies and HIV-1 p24 antigen were NOT detected. There is no laboratory evidence of HIV infection. HIV Negative Performed at: [address] [id number] Ed Tech: Andrew Harris PhD, Phone: [phone] Performing Lab: see note [facility] LB Type and Screen Reviewed date:07/23/2024 08:22:00 AM Interpretation: Performing Lab: Notes/Report: [facility] , Blood Type A Positive Antibody Screen NEGATIVE RUBELLA AB IGG Reviewed date:07/23/2024 08:22:00 AM Interpretation: Performing Lab: Notes/Report: [facility] , Rubella Antibodies, IgG 1.57 Immune > 0.99 index Non-immune <0.90 Equivocal 0.90 - 0.99 Immune >0.99 Performed at: [address] [id number] Ed Tech: Andrew Harris PhD, Phone: [phone] Performing Lab: see note - [facility] LB PREG (UHCG), URINE - IN OFFI CE Reviewed date:07/23/2024 08:22:00 AM Interpretation: Performing Lab: Notes/Report: PREG (CG), URINE - IN OFFICE + NEG - NEG Control Present + Reason For Referral No Information Medications Medication [...] 06/05/2024 Encounters Encounter Location Date Provider Diagnosis [place] [address] [place] [address] 06/05/2024 Jennifer See Z33.1 and Wellness examination Z00.00 Assessments Encounter Date Diagnosis (ICD Code) Assessment Notes Treatment Notes Treatment Clinical Notes Section Notes 06/05/2024 (ICD-10 - Z33.1) 06/05/2024 Wellness examination (ICD-10 - Z00.00) ROS done exam done medical hx reviewed here to establish no acute concerns fu Michael Plan Of Treatment No Information Insurance Providers Payer Name Payer Address Payer Phone Subscriber Number Group Number Insured Name Patient Relationship to Insured Coverage Start Date Coverage End Date [employer] ACC[employer] PPO PLUS LOCAL PLAN [address] [place] [address] [phone] [id number] Vimal Funes Self - patient is the insured [employer] [place] [employer] [address] [place] [address] [phone] [id number] Vimal Funes Self - patient is the insured Medical (General) History Medical History History ICD Code lead poisoning Surgical History Surgery Date(Month/Year) ear tubes
--- OUTSIDE RECORDS SUMMARY | 2025-05-20 17:23 | XMS_ITS | Encounter Summary ---
Author Organization [facility] Address [address] [place] [address] Care Team Providers Care Highway Inspector Name Role Phone Unallocated, Noms Provider Primary Care Provi krissy Encounter Details Date Type Department Care Team (Late st Contact Info) Description 05/11/2025 Clinisync Result Encounter [facility] External Department Unsolicited Collin Leach PA [address] [place], [facility] Social [...] PM EDT Routine [facility] [address] [place] [id number] Jose Rodriguez DO [address] [place], [facility]11 documented as of this encounter Procedures Procedure Name Priority Date/Time Associated Diagnosis Comments US OB BPP W NON-STRESS 05/11/2025 12:02 PM EDT documented in this encounter Results * US OB BPP W NON-STRESS (05/11/2025 12:02 PM EDT) Anatomical Region Laterality Modality Other 05/11/2025 12:0 2 PM EDT Narrative 05/11/2025 12:04 [place] [address] Ultrasound Report Signed Patient: VIMAL PIZANO MR#: [id number] : 2000 Acct:[id number] Age/Sex: 25 / F ADM Date: 05/11/25 Loc: [facility] 253-[address]: Collin Leach Ordering Physician: Collin Leach Date of Service: 05/11/25 Procedure(s): US OB BPP w non-stress Accession Number(s): [id number] cc: Collin Leach; LUIS SEE [address] [address] Patient Name: VIMAL PIZANO MRN: [id number] date: 2000 Sex: F Assigned Patient Location: [facility] Current Patient Location: [facility] Accession/Order Number: [id number] Exam Date: 05/11/2025 12:01 Report Date: 05/11/2025 12:02 At the request of: COLLIN LEACH Procedure: US OB BPP w non-stress Biophysical profile. Reason for exam: Gestational diabetes COMPARISON: 05/04/2025 TECHNIQUE: Transabdominal imaging of the gravid uterus was obtained. FINDINGS: The scalper operator reports a BPP of 8 out of 8. DANYA is normal at 11.9 cm. heart rate 138 bpm. US/US OB BPP w non-stress IMPRESSION: BPP 8 out of 8. Impression dictated by: Bulmaro Arias Jr., D.O. 05/11/2025 12:02 PM Dictation Location: [facility] Electronically authenticated by: [id number] Y Date: 05/11/2025 12:02 Dictated By: Bulmaro Arias M.D. Signed By: 05/11/25 1204 DD/ 120 TD/TT: Improvement Nurse: Procedure Note Radiology, Radiologist, - 05/11/2025 [place] [address] Ultrasound Report Signed Patient: VIMAL PIZANO MMR#: [id number] : 2000Acct:[id number] Age/Sex: 25 / FADM Date: 05/11/25 Loc: [facility] 253-[address]: Collin Leach Ordering Physician: Collin Leach Date of Service: 05/11/25 Procedure(s): US OB BPP w non-stress Accession Number(s): [id number] cc: Collin Leach; LUIS SEE [place] [address] Patient Name: VIMAL PIZANO MRN: [id number] date: 2000 Sex: F Assigned Patient Location: [facility] Current Patient Location: [facility] Accession/Order Number: [id number] Exam Date: 05/11/2025 12:01 Report Date: 05/11/2025 12:02 At the request of: COLLIN LEACH Procedure: US OB BPP w non-stress Biophysical profile. Reason for exam: Gestational diabetes COMPARISON: 05/04/2025 TECHNIQUE: Transabdominal imaging of the gravid uterus was obtained. FINDINGS: The scalper operator reports a BPP of 8 out of 8. DANYA is normal at11.9 cm. heart rate 138 bpm. US/US OB BPP w non-stress IMPRESSION: BPP 8 out of 8. Impression dictated by: Bulmaro Arias Jr., D.O. 05/11/2025 12:02 PM Dictation Location: [facility] Electronically authenticated by: [id number] Y Date: 2:02 Dictated By: Bulmaro Arias M.D. Signed By:05/11/25 1204 DD/ 1202 TD/TT: Improvement Nurse: [facility]lin [facility] Final Result documented in this encounter Visit Diagnoses Not on filedocumented in this encounter Care Teams Highway Inspector Relationship Specialty Start Date End Date Unallocated, Noms Provider, [address] [place] [address] PCP - General Family Medicine 08/03/24 documented as of this encounter
--- OUTSIDE RECORDS SUMMARY | 2025-05-20 17:23 | XMS_ITS | Encounter Summary ---
Author Organization [facility] Address [address] [place] [address] Care Team Providers Care Irrigation Equipment Mechanic Name Role Phone Unallocated, Noms Provider Primary Care Provi krissy Encounter Details Date Type Department Care Team (Late Contact Info) Description 03/28/2025 Abstract [facility] [place] [address] Jose Rodriguez DO [address] [place] [place], [facility] Social History Tobacco Use Types [...] EDT Routine [facility] [address] [place] [address] Jose Rodriguez DO [address] [facility] [address] [place] [address] documented as of this encounter Visit Diagnoses Not on filedocumented in this encounter Care Teams Irrigation Equipment Mechanic Relationship Specialty Start Date End Date Unallocated, Noms Provider, [place] [address] PCP - General Family Medicine 08/03/24 documented as of this encounter
--- OUTSIDE RECORDS SUMMARY | 2025-05-20 17:23 | XMS_ITS | Clinical Summary ---
Author Organization [facility] Address [address] [place] [address] Care Team Providers Care Canine Deputy Name Role Phone Unallocated, Noms Provider Primary [...] antepartum, gestational diabetes method of control unspecified ([facility]),Elevat ed glucose tolerance test Apply 1 Pad topically Daily Use four times daily to check FSBS. 150 each 3 5 Active Glucose Blood (Blood Glucose Test) stripIndications :Gestational diabetes mellitus (GDM), antepartum, gestational diabetes method of control unspecified ([facility]),Elevat ed glucose tolerance test 1 strip by In Vitro route Daily Use in the morning prior to breakfast, 1 hour after each meal for a total of 4times daily. 150 strip 3 5 06/07/20 25 Active Blood Glucose Monitoring Suppl (D-Care Glucometer) w/Device kitIndications:G estational diabetes mellitus (GDM), antepartum, gestational diabetes method of control unspecified ([facility]),Elevat ed glucose tolerance test 1 kit Daily [...] Encounters Date Type Department Care Team Description 05/18/2025 Clinisync Result Encounter NOMS External Department Unsolicited Rossana Leach PA 05/18/2025 Clinisync Result Encounter NOMS External Department Unsolicited Mackenzie Rodriguez DO 05/14/2025 2:40 PM EDT Routine [facility] PANG [address] [place] [address] [place] [address] Mackenzie Rodriguez, DO Third trimester ([facility]); 30 weeks gestation of ([facility]); induced hypertension, antepartum ([facility]) 05/14/2025 Bamboo flowsheet [facility] [address] [place] [address] Mackenzie Rodriguez, 05/11/2025 Clinisync Result Encounter NOMS External Department Unsolicited Rossana Leach PA 05/08/2025 Abstract [facility] [address] [facility] [facility] [address] Mackenzie Rodriguez, DO 05/07/2025 Results Follow-Up [facility] [address] [place] [address] Glenna Butler, CASE AIDE ALL CBC WITH AUTO DIFF, [facility] PROTHROMBIN TIME INR W/O COUM, [facility] APTT, Additional followed-up results: 6 05/06/2025 Clinisync Result Encounter NOMS External Department Unsolicited Rossana Leach PA 05/04/2025 Clinisync Result Encounter NOMS External Department Unsolicited Rossana Leach PA 05/04/2025 Clinisync Result Encounter NOMS External Department Unsolicited Rossana Leach PA 05/04/2025 Telephone [facility] [address] [place] [address] Mackenzie Rodriguez, 05/04/2025 Clinisync Result Encounter NOMS External Department Unsolicited Rossana Leach PA 04/30/2025 10:50 AM EDT Routine [facility] [address] [facility] [facility] [address] Rossana Leach PA BP check; -induced hypertension in third trimester ([facility]); Gestational diabetes mellitus (GDM) in third trimester, gestational diabetes method of control unspecified ([facility]) 04/30/2025 Bamboo flowsheet [facility] [address] [place] [address] Rossana Leach PA 04/29/2025 Telephone [facility] [address] [facility] [facility] [address] Kavitha Almanza MA 04/27/2025 Clinisync Result Encounter NOMS External Department Unsolicited Rossana Leach PA 04/25/2025 2:50 PM EDT Office Visit NOMMay P[facility] [address] [place] [address] Rossana Leach PA Second trimester ([facility]); 27 weeks gestation of ([facility]); induced hypertension, antepartum ([facility]) 04/25/2025 Bamboo flowsheet [facility] [address] [place] [address] Rossana Leach PA 04/11/2025 3:30 PM EDT Routine [facility] [address] [place] [address] Rossana Leach PA Second trimester ([facility]); 25 weeks gestation of ([facility]); Diabetes mellitus screening; Elevated BP without diagnosis of hypertension 04/11/2025 Bamboo flowsheet [facility] [address] [place] [address] Rossana Leach PA 03/28/2025 Abstract [facility] [address] [facility] [place] [address] Mackenzie Rodriguez, 03/25/2025 Clinisync Result Encounter NOMS External Department Unsolicited Mackenzie Rodriguez DO 03/14/2025 10:50 AM EDT Routine [facility] [address] [place] [address] Mackenzie Rodriguez, Second trimester ([facility]); 21 weeks gestation of ([facility]) 03/14/2025 Bamboo flowsheet [facility] [address] [facility] [place] [address] Mackenzie Rodriguez DO 03/11/2025 Results Follow-Up [facility] [address] [place] [address] Meghanalacho Glenna, CASE AIDE US OB ANATOMY 03/11/2025 Telephone [facility] [address] [place] [address] Luke Glenna, CASE AIDE 03/08/2025 Clinisync Result Encounter NOMS External Department Unsolicited Michael, Mackenzie, DO 03/08/2025 Clinisync Result Encounter NOMS External Department Unsolicited Michael, Mackenzie, DO 03/06/2025 Orders Only [facility] [place] [address] Kavitha Almanza MA 02/20/2025 3:40 PM [place] [address] Rossana Leach PA Screening, , for anatomic survey ([facility]); Well woman exam with routine gynecological exam; STD exposure; Second trimester ([facility]); 18 weeks gestation of ([facility]); Urinary frequency 02/20/2025 Clinisync Result Encounter NOMS External Department Unsolicited Rossana Leach PA 02/20/2025 External Result Encounter NOMS External Department Unsolicited Rossana Leach PA 02/20/2025 Bamboo flowsheet [facility] [address] [place] [address] Rossana Leahc PA from Last 3 Months [...] PM EDT Routine [facility] [address] [facility] [place] [address] MichaelMackenzie barrios, [address] [facility] [address] [place], [place] [address] Health Maintenance Due Date Last Done Comments Influenza Vaccine (#1) 2025 08/28/2003, 2002 Procedures Procedure Name Priority Date/Time Associated Diagnosis Comments US OB BPP W NON-STRESS 05/18/2025 5:08 PM EDT ALL LDH Routine 05/18/2025 11:03 AM EDT [facility] AST Routine 05/18/2025 11:03 AM EDT ALL URIC ACID Routine 05/18/2025 11:03 AM EDT TBH CREATININE Routine 05/18/2025 11:03 AM EDT ALL BUN Routine 05/18/2025 11:03 AM EDT [facility] APTT Routine 05/18/2025 11:03 AM EDT [facility] PROTHROMBIN TIME INR W/O COUM Routine 05/18/2025 11:03 AM EDT ALL CBC WITH AUTO DIFF Routine 05/18/2025 11:03 AM EDT US OB BPP W NON-STRESS 05/11/2025 12:02 [...] Second trimester ([facility]) POCT URINALYSIS DIPSTICK Routine 04/11/2025 3:44 PM EDT Second trimester ([facility]) US OB INCOMPLETE ANATOMY 03/25/2025 8:25 AM EDT POCT URINALYSIS DIPSTICK Routine 03/14/2025 11:39 AM EDT Second trimester ([facility]) US OB CERVICAL LENGTH 03/08/2025 8:36 PM EDT US OB ANATOMY 03/08/2025 8:36 PM EDT RECURRENT VAGINITIS (HTRX) Routine 02/20/2025 4:33 PM EDT URINARY TRACT INFECTION (HTRX) Routine 02/20/2025 4:30 PM EDT POCT URINALYSIS DIPSTICK Routine 02/20/2025 4:18 PM EDT 18 weeks gestation of ([facility]) IGP,APTIMA HPV,AGE GDLN Routine 02/20/2025 3:50 PM EDT PAP SMEAR Routine 02/20/2025 12:00 AM EDT from Last 3 Months Results * US OB BPP W NON-STRESS (05/18/2025 5:08 PM EDT) Only the most recent of3 resultswithin the time period is included. Anatomical Region Laterality Modality Other 05/18/2025 5:08 PM EDT Narrative 05/18/2025 8:17 [place] [address] Ultrasound Report Signed Patient: VIMAL FUNES MR#: [id number] : 2000 Acct:[id number] Age/Sex: 25 / F ADM Date: 05/18/25 Loc: US Attending Dr: Rossana Leach Ordering Physician: Rossana Leach Date of Service: 05/18/25 Procedure(s): US OB BPP w non-stress Accession Number(s): [id number] cc: Rossana Leach; LUIS SEE [place] [address] Patient Name: VIMAL FUNES MRN: [id number] date: 2000 Sex: F Assigned Patient Location: [facility] Current Patient Location: Accession/Order Number: [id number] Exam Date: 05/18/2025 11:16 Report Date: 05/18/2025 [...] Acharya M.D. 05/18/2025 5:08 PM Dictation Location: [place] [address] Electronically authenticated by: [id number] Y Date: 05/18/2025 17:08 Dictated By: Heriberto Acharya M.D. Signed By: 05/18/252016 DD/ 07 TD/TT: Upscale Security Officer: Procedure Note Radiology, Radiologist, - 05/18/2025 [place] [address] Ultrasound Report Signed Patient: VIMAL FUNES MMR#: [id number] : 2000Acct:[id number] Age/Sex: 25 / FADM Date: 05/18/25 Loc: US Attending Dr: Rossana Leach Ordering Physician: Rossana Leach Date of Service: 05/18/25 Procedure(s): US OB BPP w non-stress Accession Number(s): [id number] cc: Rossana Leach; [place] [address] Patient Name: VIMAL FUNES MRN: [id number] date: 2000 Sex: F Assigned Patient Location: [facility] Current Patient Location: Accession/Order Number: [id number] Exam Date: 05/18/2025 11:16 Report Date: 05/18/2025 [...] Acharya M.D. 05/18/2025 5:08 PM Dictation Location: [place] [address] Electronically authenticated by: [id number] Y Date: 7:08 Dictated By: Heriberto Acharya M.D. Signed By:05/18/252016 DD/ 07 TD/TT: Upscale Security Officer: us Rossana Leach PA [facility] Final Result * (ABNORMAL) TBH CREATININE (05/18/2025 11:03 AM EDT) Only the most recent of2 resultswithin the time period is included. CREATININE 0.38(L) 0.55 - 1.02 mg/dL TBH TBH EGFR-AF CHILEAN >60 >=60 mL/min/1.7 3m 2 TBH TBH EGFR-NON AF CHILEAN >60 >=60 mL/min/1.7 3m 2 TBH 05/18/2025 11:0 3 AM EDT 05/18/2025 11:08 AM EDT Narrative CLINISYNC - 05/18/2025 11:[address] [facility] Michael DO CLINISYNC Final Result Performing Organization Address [facility] Co de Phone Number [facility] * [facility] PROTHROMBIN TIME INR W/O COUM (05/18/2025 11:03 AM EDT) Only the most recent of2 resultswithin the time period is included. PROTHROMBIN TIME 10.2 9.0 - 11.6 sec TB TB INR 0.96 TBH Comment: DESIRED INR: 2.0-3.0 CONDITIONS NOT LISTED BELOW 2.5-3.5 FOR PROSTHETIC HEART VALVE REPLACEMENT 2.5-3.5 RECURRENT THROMBOSIS 05/18/2025 11:0 3 AM EDT 05/18/2025 11:08 AM EDT Narrative CLINISYNC - 05/18/2025 11:[address] [facility] Michael DO CLINISYNC Final Result Performing Organization Address City/[facility]/ZIP Co de Phone Number [facility] * [facility] AST (05/18/2025 11:03 AM EDT) Only the most recent of2 resultswithin the time period is included. ASPARTATE AMINO TRANSFERASE 18 15 - 37 U/L TB 05/18/2025 11:0 3 AM EDT 05/18/2025 11:08 AM EDT Narrative CLINISYNC - 05/18/2025 11:50 AM EDT us Mackenzie Michael DO CLINISYNC Final Result Performing Organization Address [facility] Co de Phone Number CLINISYNC TB * [facility] APTT (05/18/2025 11:03 AM EDT) Only the most recent of2 resultswithin the time period is included. PARTIAL THROMBOPLASTIN TIME 25.6 22.3 - 36.2 sec TBH 05/18/2025 11:0 3 AM EDT 05/18/2025 11:08 AM EDT Narrative CLINISYNC - 05/18/2025 11:29 AM EDT Mackenzie Michael DO CLINISYNC Final Result Performing Organization Address [facility] Phone Number CLINISYNC TB * ALL URIC ACID (05/18/2025 11:03 AM EDT) Only the most recent of2 resultswithin the time period is included. URIC ACID 4.0 2.6 - 6.0 mg/dL TB 05/18/2025 11:0 3 AM EDT 05/18/2025 11:08 AM EDT Narrative CLINISYNC - 05/18/2025 11:50 AM EDT us Mackenzie Michael DO CLINISYNC Final Result Performing Organization Address [facility] de Phone Number CLINIS[facility]NC TB * ALL LDH (05/18/2025 11:03 AM EDT) Only the most recent of2 resultswithin the time period is included. LACTATE DEHYDROGENASE 147 81 - 234 U/L TB 05/18/2025 11:0 3 AM EDT 05/18/2025 11:08 AM EDT Narrative CLINISYNC - 05/18/2025 11:50 AM EDT us Mackenzie Michael DO CLINISYNC Final Result Performing Organization Address [facility] Co de Phone Number CLINISYNC TBH * (ABNORMAL) ALL CBC WITH AUTO DIFF (05/18/2025 11:03 AM EDT) Only the most recent of3 resultswithin the time period is included. TBH WBC 15.0(H) 4.0 - 11.0 10 [...] CLINISYNC - 05/18/2025 11:27 AM EDT us Mackenzie Michael DO CLINISYNC Final Result Performing Organization Address City/[facility]/ZIP Co de Phone Number CLINISYNC TBH * ALL BUN (05/18/2025 11:03 AM EDT) Only the most recent of2 resultswithin the time period is included. BLOOD UREA NITROGEN 9.0 7.0 - 18.0 mg/dL TBH 05/18/2025 11:0 3 AM EDT 05/18/2025 11:08 AM EDT Narrative CLINISYNC - 05/18/2025 11:50 AM EDT us Mackenzie Michael DO CLINISYNC Final Result Performing Organization Address [facility] Co de Phone Number CLINISYNC TBH * TBH TOTAL PROTEIN 24 HOUR URINE (05/06/2025 7:00 AM EDT) TOTAL PROTEIN URINE RANDOM <6.0 <=11.9 mg/dL TBH TOTAL VOLUME 24 HOUR URINE 3,700 mL/24hr TBH 05/06/2025 7:00 AM EDT 05/06/2025 4:47 PM EDT Narrative CLINISYNC - 05/06/2025 5:50 PM EDT us Rossana BISWAS CLINISYNC Final Result Performing Organization Address City/[facility] Co de Phone Number CLINISYNC TB * US OB GROWTH (05/04/2025 12:08 PM EDT) Anatomical Region Laterality Modality Other 05/04/2025 12:0 8 PM EDT Narrative 05/04/2025 12:11 PM EDT The [address] [address] Ultrasound Report Signed Patient: VIMAL FUNES MR#: [id number] : 2000 Acct:[id number] Age/Sex: 25 / F ADM Date: 05/04/25 Loc: [facility] 250-[address]: Rossana Leach Ordering Physician: Rossana Leach Date of Service: 05/04/25 Procedure(s): US OB growth Accession Number(s): [id number] cc: Rossana Leach; LUIS SEE The [place] [id number] Patient Name: VIMAL FUNES MRN: [id number] date: 2000 Sex: F Assigned Patient Location: [facility] Current Patient Location: [facility] Accession/Order Number: [id number] Exam Date: 05/04/2025 12:06 Report Date: 05/04/2025 [...] Jr., D.O. 05/04/2025 12:08 PM Dictation Location: [place] [address] Electronically authenticated by: [id number] Y Date: 05/04/2025 12:08 Dictated By: Bulmaro Arias M.D. Signed By: 05/04/25 1211 DD/ 1208 TD/TT: Upscale Security Officer: Procedure Note Radiology, Radiologist, MD - 05/04/[address] [address] Ultrasound Report Signed Patient: VIMAL FUNES MMR#: [id number] : 2000Acct:[id number] Age/Sex: 25 / FADM Date: 05/04/25 Loc: [facility] Yunier[address] Attending Dr: Rossana Leach Ordering Physician: Rossana Leach Date of Service: 05/04/25 Procedure(s): US OB growth Accession Number(s): [id number] cc: Rossana Leach; LUIS SEE [address] [address] Patient Name: VIMAL FUNES MRN: [id number] date: 2000 Sex: F Assigned Patient Location: [facility] Current Patient Location: [facility] Accession/Order Number: [id number] Exam Date: 05/04/2025 12:06 Report Date: 05/04/2025 [...] Jr., D.O. 05/04/2025 12:08 PM Dictation Location: [place] [address] Electronically authenticated by: [id number] Y Date: 2:08 Dictated By: Bulmaro Arias M.D. Signed By:05/04/25 1211 DD/ 1208 TD/TT: Upscale Security Officer: us Rossana Leach PA [facility]AG[facility] Final Result * (ABNORMAL) GLUCOSE TOLERANCE 3 HOUR (05/04/2025 [...] ORDERABLES Final Resul t Performing Organization Address City/[facility]/ZIP Co de Phone Number [facility] * (ABNORMAL) POCT urinalysis dipstick [...] EDT) GLUCOSE 1 HOUR 171(H) <130 mg/dL [facility] 04/27/2025 10:0 5 AM EDT 04/27/2025 10:06 AM EDT Narrative CLINISYNC - 04/27/2025 10:45 AM EDT Rossana BISWAS LAB BLOOD ORDERABLES Final Resul t CLINISYNC TBH * US OB INCOMPLETE ANATOMY (03/25/2025 8:25 AM EDT) Anatomical Region Laterality Modality Other 03/25/2025 8:25 AM EDT Narrative 03/25/2025 8:27 [place] [address] Ultrasound Report Signed Patient: VIMAL FUNES MR#: [id number] : 2000 Acct:[id number] Age/Sex: 24 / F ADM Date: 03/23/25 Loc: US Attending Dr: Mackenzie Rodriguez D.O. Ordering Physician: Mackenzie Rodriguez D.O. Date of Service: 03/23/25 Procedure(s): US OB incomplete anatomy Accession Number(s): [id number] cc: LUIS SEE ; Mackenzie Rodriguez D.O. [place] [address] Patient Name: VIMAL FUNES MRN: [id number] date: 2000 Sex: F Assigned Patient Location: US Current Patient Location: US Accession/Order Number: [id number] Exam Date: 03/25/2025 08:23 Report Date: 03/25/2025 [...] Brown M.D. 03/25/2025 8:25 AM Dictation Location: [place] [address] Electronically authenticated by: [id number] Y Date: 03/25/2025 08:25 Dictated By: Meghana Brown M.D. Signed By: 03/25/25826 DD/ 4 TD/TT: Upscale Security Officer: Procedure Note Radiology, Radiologist, - 03/25/2025 [place] [address] Ultrasound Report Signed Patient: VIMAL FUNES MMR#: [id number] : 2000Acct:[id number] Age/Sex: 24 / FADM Date: 03/23/25 Loc: US Attending Dr: Mackenzie Rodriguez D.O. Ordering Physician: Mackenzie Rodriguez D.O. Date of Service: 03/23/25 Procedure(s): US OB incomplete anatomy Accession Number(s): [id number] cc: LUIS SEE ; Mackenzie Rodriguez D.O. The [place] [address] Patient Name: VIMAL FUNES MRN: [id number] date: 2000 Sex: F Assigned Patient Location: US Current Patient Location: US Accession/Order Number: [id number] Exam Date: 03/25/2025 08:23 Report Date: 03/25/2025 [...] Brown M.D. 03/25/2025 8:25 AM Dictation Location: [place] [address] Electronically authenticated by: [id number] Y Date: 508:25 Dictated By: Meghana Brown M.D. Signed By:03/25/25826 DD/ 4 TD/TT: Upscale Security Officer: us Mackenzie Rodriguez DO [facility] IMAG[facility] Final Result * US OB CERVICAL LENGTH (03/08/2025 8:36 PM EDT) Anatomical Region Laterality Modality Other 03/08/2025 8:36 PM EDT Narrative 03/08/2025 8:38 [place] [address] Ultrasound Report Signed Patient: VIMAL FUNES MR#: [id number] : 2000 Acct:[id number] Age/Sex: 24 / F ADM Date: 03/08/25 Loc: US Attending Dr: Mackenzie Rodriguez D.O. Ordering Physician: Mackenzie Rodriguez D.O. Date of Service: 03/08/25 Procedure(s): US OB cervical length Accession Number(s): [id number] cc: LUIS SEE ; Mackenzie Rodriguez D.O. [place] [id number] Patient Name: VIMAL FUNES MRN: [id number] date: 2000 Sex: F Assigned Patient Location: US Current Patient Location: US Accession/Order Number: [id number] Exam Date: 03/08/2025 20:31 Report Date: 03/08/2025 [...] Knapp M.D. 03/08/2025 8:36 PM Dictation Location: [place] Electronically authenticated by: [id number] Y Date: 03/08/2025 20:36 Dictated By: Shivam Knapp D.O. Signed By: 03/08/252037 DD/ 35 TD/TT: Upscale Security Officer: Procedure Note Radiology, Radiologist, MD - 03/08/2025 [place] [address] Ultrasound Report Signed Patient: VIMAL FUNES MMR#: [id number] : 2000Acct:[id number] Age/Sex: 24 FADM Date: 03/08/25 Loc: US Attending Dr: Mackenzie Rodriguez D.O. Ordering Physician: Mackenzie Rodriguez D.O. Date of Service: 03/08/25 Procedure(s): US OB cervical length Accession Number(s): [id number] cc: LUIS SEE ; Mackenzie Rodriguez D.O. The [place] [id number] Patient Name: VIMAL FUNES MRN: [id number] date: 2000 Sex: F Assigned Patient Location: US Current Patient Location: US Accession/Order Number: [id number] Exam Date: 03/08/2025 20:31 Report Date: 03/08/2025 [...] Knapp M.D. 03/08/2025 8:36 PM Dictation Location: [place] Electronically authenticated by: [id number] Y Date: 0:36 Dictated By: Shivam Knapp D.O. Signed By:03/08/252037 DD/ 35 TD/TT: Upscale Security Officer: us Mackenzie Rodriguez DO [facility] IMAGING Final Result * US OB ANATOMY (03/08/2025 8:36 PM EDT) Anatomical Region Laterality Modality Other 03/08/2025 8:36 PM EDT Narrative 03/08/2025 8:38 [place] [address] Ultrasound Report Signed Patient: VIMAL FUNES MR#: [id number] : 2000 Acct:[id number] Age/Sex: 24 / F ADM Date: 03/08/25 Loc: US Attending Dr: Mackenzie Rodriguez D.O. Ordering Physician: Mackenzie Rodriguez D.O. Date of Service: 03/08/25 Procedure(s): US OB anatomy Accession Number(s): [id number] cc: LUIS SEE ; Mackenzie Rodriguez D.O. The [place] [id number] Patient Name: VIMAL FUNES MRN: [id number] date: 2000 Sex: F Assigned Patient Location: US Current Patient Location: US Accession/Order Number: [id number] Exam Date: 03/08/2025 20:31 Report Date: 03/08/2025 [...] Knapp M.D. 03/08/2025 8:36 PM Dictation [facility] Electron[facility] authenticated by: [id number] Y Date: 03/08/2025 20:36 Dictated By: Shivam Knapp D.O. Signed By: 03/08/252037 DD/ 35 TD/TT: Upscale Security Officer: Procedure Note Radiology, Radiologist, - 03/08/2025 [place] [address] Ultrasound Report Signed Patient: VIMAL FUNES MMR#: [id number] : 2000Acct:[id number] Age/Sex: 24 / FADM Date: 03/08/25 Loc: US Attending Dr: Mackenzie Rodriguez D.O. Ordering Physician: Mackenzie Rodriguez D.O. Date of Service: 03/08/25 Procedure(s): US OB anatomy Accession Number(s): [id number] cc: LUIS SEE ; Mackenzie Rodriguez D.O. [place] [phone] Patient Name: VIMAL FUNES MRN: [id number] date: 2000 Sex: F Assigned Patient Location: US Current Patient Location: US Accession/Order Number: [id number] Exam Date: 03/08/2025 20:31 Report Date: 03/08/2025 [...] 19 weeks 3 days. Impression dictated by: Shiavm Knapp M.D. 03/08/2025 8:36 PM Dictation Location: [place] Electronically authenticated by: [id number] Y Date: 0:36 Dictated By: Shivam Knapp D.O. Signed By:03/08/252037 DD/ 35 TD/TT: Upscale Security Officer: Mackenzie Rodriguez DO [facility] IMAG[facility] Final Result * RECURRENT VAGINITIS (HTRX) (02/20/2025 4:33 PM EDT) [facility] ATOPOBIUM VAGINAE 0.000 19.961 - 24.689 ppm 02/22/2025 6:32 AM EDT [facility] ATOPOBIUM VAGINAE Not Detected 19.961 - 24.689 ppm 02/22/2025 6:32 AM EDT [facility] BVAB 2,3 (BACTERIAL VAGINOSIS ASSOCIATED BACTERIA 2, 3); MOBILUNCUS SPP 0.000 19.961 - 24.689 ppm 02/22/2025 6:32 AM EDT [facility] BVAB 2,3 (BACTERIAL VAGINOSIS ASSOCIATED BACTERIA 2, 3); MOBILUNCUS SPP Not Detected 19.961 - 24.689 ppm 02/22/2025 6:32 AM EDT [facility] SIMEON ALBICANS, PARAPSILOSIS, TROPICALIS 0.000 19.961 - 30.770 ppm 02/22/2025 6:32 AM EDT [facility] SIMEON ALBICANS, PARAPSILOSIS, TROPICALIS Not Detected 19.961 - 30.770 ppm 02/22/2025 6:32 AM EDT [facility] SIMEON GLABRATA 0.000 23.000 - 32.138 ppm 02/22/2025 6:32 AM EDT [facility] SIMEON GLABRATA Not Detected 23.000 - 32.138 ppm 02/22/2025 6:32 AM EDT [facility] SIMEON KRUSEI 0.000 23.000 - 32.271 ppm 02/22/2025 6:32 AM EDT [facility] SIMEON KRUSEI Not Detected 23.000 - 32.271 ppm 02/22/2025 6:32 AM EDT [facility] CHLAMYDIA TRACHOMATIS 0.000 23.000 - 31.467 ppm 02/22/2025 6:32 AM EDT [facility] CHLAMYDIA TRACHOMATIS Not Detected 23.000 - 31.467 ppm 02/22/2025 6:32 AM EDT [facility] GARDNERELLA VAGINALIS 0.000 19.961 - 24.689 ppm 02/22/2025 6:32 AM EDT [facility] GARDNERELLA VAGINALIS Not Detected 19.961 - 24.689 ppm 02/22/2025 6:32 AM EDT [facility] [place] MEGASPHAERA (TYPES 1, 2) 0.000 19.961 - 24.689 ppm 02/22/2025 6:32 AM EDT [facility] [place] MEGASPHAERA (TYPES 1, 2) Not Detected 19.961 - 24.689 ppm 02/22/2025 6:32 AM EDT [facility] NEISSERIA GONORRHOEAE 0.000 23.000 - 32.117 ppm 02/22/2025 6:32 AM EDT [facility] NEISSERIA GONORRHOEAE Not Detected 23.000 - 32.117 ppm 02/22/2025 6:32 AM EDT [facility] TRICHOMONAS VAGINALIS 0.000 23.000 - 32.119 ppm 02/22/2025 6:32 AM EDT [facility] TRICHOMONAS VAGINALIS Not Detected 23.000 - 32.119 ppm 02/22/2025 6:32 AM EDT [facility] MYCOPLASMA GENITALIUM 0.000 19.961 - 24.689 ppm 02/22/2025 6:32 AM EDT [facility] MYCOPLASMA GENITALIUM Not Detected 19.961 - 24.689 ppm 02/22/2025 6:32 AM EDT [facility] Tissue 02/20/2025 4:33 PM EDT 02/22/2025 1:53 AM EDT us Rossana BISWAS LAB BLOOD ORDERABLES Final Resul t [facility] [place] [address] * URINARY TRACT INFECTION (HTRX) (02/20/2025 4:30 PM EDT) [facility] ACINETOBACTER BAUMANII 0.000 19.961 - 24.689 ppm 02/22/2025 6:52 AM EDT [facility] ACINETOBACTER BAUMANII Not Detected 19.961 - 24.689 ppm 02/22/2025 6:52 AM EDT [facility] CITROBACTER FREUNDII 0.000 23.000 - 31.881 ppm 02/22/2025 6:52 AM EDT [facility] CITROBACTER FREUNDII Not Detected 23.000 - 31.881 ppm 02/22/2025 6:52 AM EDT [facility] ENTEROBACTER AEROGENES, CLOACAE 0.000 23.000 - 31.535 ppm 02/22/2025 6:52 AM EDT [facility] ENTEROBACTER AEROGENES, CLOACAE Not Detected 23.000 - 31.535 ppm 02/22/2025 6:52 AM EDT [facility] ENTEROCOCCUS FAECALIS, FAECIUM 0.000 26.000 - 31.575 ppm 02/22/2025 6:52 AM EDT [facility] ENTEROCOCCUS FAECALIS, FAECIUM Not Detected 26.000 - 31.575 ppm 02/22/2025 6:52 AM EDT [facility] ESCHERICHIA COLI 0.000 23.000 - 28.500 ppm 02/22/2025 6:52 AM EDT [facility] ESCHERICHIA COLI Not Detected 23.000 - 28.500 ppm 02/22/2025 6:52 AM EDT [facility] KLEBSIELLA PNEUMONIAE, OXYTOCA 0.000 23.000 - 30.500 ppm 02/22/2025 6:52 AM EDT [facility] KLEBSIELLA PNEUMONIAE, OXYTOCA Not Detected 23.000 - 30.500 ppm 02/22/2025 6:52 AM EDT [facility] MORGANELLA MORGANII 0.000 19.961 - 24.689 ppm 02/22/2025 6:52 AM EDT [facility] MORGANELLA MORGANII Not Detected 19.961 - 24.689 ppm 02/22/2025 6:52 AM EDT [facility] PROTEUS MIRABILIS, VULGARIS 0.000 23.000 - 28.500 ppm 02/22/2025 6:52 AM EDT [facility] PROTEUS MIRABILIS, VULGARIS Not Detected 23.000 - 28.500 ppm 02/22/2025 6:52 AM EDT [facility] PSEUDOMONAS AERUGINOSA 0.000 23.000 - 28.500 ppm 02/22/2025 6:52 AM EDT [facility] PSEUDOMONAS AERUGINOSA Not Detected 23.000 - 28.500 ppm 02/22/2025 6:52 AM EDT [facility] STAPHYLOCOCCUS AUREUS 0.000 26.000 - 30.902 ppm 02/22/2025 6:52 AM EDT [facility] STAPHYLOCOCCUS AUREUS Not Detected 26.000 - 30.902 ppm 02/22/2025 6:52 AM EDT [facility] STREPTOCOCCUS AGALACTIAE (GROUP B STREP) 0.000 26.000 - 32.222 ppm 02/22/2025 6:52 AM EDT [facility] STREPTOCOCCUS AGALACTIAE (GROUP B STREP) Not Detected 26.000 - 32.222 ppm 02/22/2025 6:52 AM EDT [facility] SIMEON ALBICANS, PARAPSILOSIS, TROPICALIS 0.000 19.961 - 30.770 ppm 02/22/2025 6:52 AM EDT [facility] SIMEON ALBICANS, PARAPSILOSIS, TROPICALIS Not Detected 19.961 - 30.770 ppm 02/22/2025 6:52 AM EDT [facility] SIMEON GLABRATA 0.000 23.000 - 32.138 ppm 02/22/2025 6:52 AM EDT [facility] SIMEON GLABRATA Not Detected 23.000 - 32.138 ppm 02/22/2025 6:52 AM EDT [facility] SIMEON KRUSEI 0.000 23.000 - 32.271 ppm 02/22/2025 6:52 AM EDT [facility] SIMEON KRUSEI Not Detected 23.000 - 32.271 ppm 02/22/2025 6:52 AM EDT [facility] SERRATIA MARCESCENS 0.000 23.000 - 31.204 ppm 02/22/2025 6:52 AM EDT [facility] SERRATIA MARCESCENS Not Detected 23.000 - 31.204 ppm 02/22/2025 6:52 AM EDT [facility] STREPTOCOCCUS PYOGENES (GROUP A STREP) 0.000 19.961 - 24.689 ppm 02/22/2025 6:52 AM EDT [facility] STREPTOCOCCUS PYOGENES (GROUP A STREP) Not Detected 19.961 - 24.689 ppm 02/22/2025 6:52 AM EDT [facility] STAPHYLOCOCCUS EPIDERMIDIS, HAEMOLYTICUS, LUGDUNENSIS, SAPROPHYTICUS (URINA 0.000 19.961 - 24.689 ppm 02/22/2025 6:52 AM EDT [facility] STAPHYLOCOCCUS EPIDERMIDIS, HAEMOLYTICUS, LUGDUNENSIS, SAPROPHYTICUS (URINA Not Detected 19.961 - 24.689 ppm 02/22/2025 6:52 AM EDT [facility] STAPHYLOCOCCUS EPIDERMIDIS, HAEMOLYTICUS, LUGDUNENSIS, SAPROPHYTICUS (URINA 0.000 19.961 - 24.689 ppm 02/22/2025 6:52 AM EDT [facility] STAPHYLOCOCCUS EPIDERMIDIS, HAEMOLYTICUS, LUGDUNENSIS, SAPROPHYTICUS (URINA Not Detected 19.961 - 24.689 ppm 02/22/2025 6:52 AM EDT [facility] Urine 02/20/2025 4:30 PM EDT 02/22/2025 1:52 AM EDT Rossana BISWAS LAB BLOOD ORDERABLES Final Resul t [facility] [address] [place] [address] * IGP,APTIMA HPV,AGE GDLN (02/20/2025 3:50 PM EDT) AGE GDLN ACOG TESTING Note . [facility] Comment: TESTS RESULT FLAG UNITS REF RANGE LAB Clinician Provided Cytology Information Source.............Endocervix No. of containers..01 ThinPrep Vial Age Algo ACOG Yris... FLAG LEGEND: L-Low Normal,H-High Normal,LL-Alert Low,HH-Alert High <-Panic Low,>-Panic High,A-Abnormal,AA-Critical Abnormal Performed at: 01 [address] [facility] [place] [address] Jenise Byrne MD, IGP, RFX APTIMA HPV ASCU Note . [facility] Comment: TESTS RESULT FLAG UNITS REF RANGE LAB DIAGNOSIS: 02 NEGATIVE FOR INTRAEPITHELIAL LESION OR MALIGNANCY. Specimen adequacy: 02 Satisfactory for evaluation. Endocervical and/or squamous metaplastic cells (endocervical component) are present. Performed by: Hussein Alvarez Fire Pilot ([facility]) . 02 Note: Note 02 [...] <-Panic Low,>-Panic High,A-Abnormal,AA-Critical Abnormal Performed at: [address] [address] Jenise Byrne MD, Performed at: = - [facility] [id number] Shipping Technician: Jenise Byrne MD, Phone: [phone] Performed at: [address] [id number] Shipping Technician: Jenise Byrne MD, Phone: [phone] 02/20/2025 3:50 PM EDT 02/20/2025 9:13 PM EDT Narrative [facility] - 02/23/2025 1:08 PM EDT [facility] ENDOCERVIX us Rossana BISWAS LAB BLOOD ORDERABLES Final Resul t [facility] * Pap Smear (02/20/2025 12:00 AM EDT) Swab Cervical swab / Unknown us Rossana BISWAS LAB CYTOLOGY ORDERABLES Final Re sult EXTERNAL LAB from Last 3 Months Insurance [employer] Care Teams Canine Deputy Relationship Specialty Start Date End Date Unallocated, Noms Provider, [address] [place] [address] PCP - General Family Medicine 08/03/24
--- OUTSIDE RECORDS SUMMARY | 2025-05-20 17:23 | XMS_ITS | Encounter Summary ---
Author Organization [facility] Address [address] [place] [address] Care Team Providers Care Inside Sales Associate Name Role Phone Unallocated, Noms Provider Primary Care Provi krissy Encounter Details Date Type Department Care Team (Late Contact Info) Description 05/14/2025 Bamboo flowsheet ARJUN PANG [address] [place] [address] Jose Rodriguez DO [address] [place], [place] [address]Tal Morataya, [id number] Social History Tobacco Use Types Packs/Day Years [...] EDT Routine NOMMay PANG [address] [place] [address] Jose Rodriguez DO [address] [place], [place] [address]s[place] [place] [address] documented as of this encounter Visit Diagnoses Not on filedocumented in this encounter Care Teams Inside Sales Associate Relationship Specialty Start Date End Date Unallocated, Noms Provider, [place] [address] PCP - General Family Medicine 08/03/24 documented as of this encounter
[2025-05-20 19:11] LABS: Total Protein Urine Random 6.7 mg/dL (<=11.9)
[2025-05-20 19:25] LABS: Total Volume 24 Hour Urine 2900 mL/24hr
== END 2025-05-20 17:16 | disposition home or self-care (01) ==
LOC: LAB 17:15
PROVIDERS: PCP Nurse Practitioner Family; Visit Provider Obstetrics & Gynecology
DX: O13.9 Gestational [pregnancy-induced] hypertension without significant proteinuria, unspecified trimester (principal)
CPT/HCPCS: 84156

== ENCOUNTER 2025-05-22 15:41 | Outpatient (OUT) | payer BC, OTHER, SELFPAY ==
--- OUTSIDE RECORDS SUMMARY | 2024-06-05 04:30 | XMS_ITS ---
Author Organization [facility] [place] Address [address] [place] [address] Care Team Providers Care Medium Cycle Salesperson Name Role Phone Jennifer Butts Primary Care Provider [phone] Allergies No Known Allergies Results Component Value [...] Encounters Encounter Location Date Provider Diagnosis [facility] [address] [place] [address] 06/05/2024 Jennifer Butts Z33.1 and Wellness examination [...] Amber PIZANO MDOB: [birth year] (24 yo F)Acc No.[id number]:06/05/2024 New Patient Patient: Amber MADERA Provider: Lashawn Butts ([facility]), CASING CLEANER :2000 A ge:24 Y S ex:Female Date:06/05/2024 Address:[address] [place] [address] Check In:08:08 AM ESTCheck O ut:08:44 AM [...] old Job and Family Services , front end java developer, Child services here to get established [...] (Check Out) true * Provider: Lashawn Butts ([facility]), CASING CLEANER Date: 0 06/05/2024 Generated for Yolisi ng/Famariig/eTransmitting on: 0 05/22/2025 02:46 PM EDT History and Physical Notes * HPI (History of Present Illness) Category Sub-Category Detail Notes Category Not es General OBGYN Michael , have 2 year old Job and Family Services , front end java developer, Child services here to get established [...]
--- OUTSIDE RECORDS SUMMARY | 2025-05-13 13:30 | XMS_ITS | Encounter Summary ---
Author Organization [facility] [employer] [facility] tem Address [facility]-[id number] [address] [place] [address] Care Team Providers Care Traveling Sales Representative Name Role Phone Unavailable Primary Care Provider Unavailabl e Reason for Visit * Reason Comments Gestational Diabetes * Consultation (Routine) - Pending Review Specialty Diagnoses / Procedures Referred By Contac t Referred To Contact Maternal and Medicine Diagnoses Gestational diabetes mellitus (GDM) in third trimester, gestational diabetes method of control unspecified Jose Rodriguez, DO [address] [place] [address] [place] [address] Phone: tel: fax: Maternal- Medicine at [facility] [address] [place] [address] Phone: tel: fax: Referral ID Status Reason Start Date Expiration Date Visits Requested Visits Authorized [id number] Pending Review Specialty Services Required 05/09/2025 05/09/2026 1 1 Encounter Details Date Type Department Care Team (Late st Contact Info) Description 05/13/2025 1:30 PM EDT Support Visit Maternal- Medicine at [facility] [address] [place] [address] Marjorie Rico, RN [address] [facility] [address] [phone] Xenia Rayo, ALEC [address], [address] [place] [phone] Gestational diabetes mellitus (GDM) in third trimester, [...] Info) Description 06/04/2025 1:00 PM EDT Appointment [facility] - Ultrasound [address] [place] [address] Jose Rodriguez, DO [address] [place] [address] [place] [place] [address] documented as of this encounter Procedures Procedure [...]
--- OUTSIDE RECORDS SUMMARY | 2025-05-22 15:43 | XMS_ITS | Encounter Summary ---
Author Organization [facility] [employer] [facility] tem Address [facility]-[id number] [address] [place] [address] Care Team Providers Care Home Care Liaison Name Role Phone Unavailable Primary Care Provider Unavailabl e Encounter Details Date Type Department Care Team (Late st Contact Info) Description 05/21/2025 Telephone Maternal- Medicine at [facility] [address] [place] [address] Chante Muse, ILEANA [address] [place] [address] Social History Tobacco Use Types Packs/Day Years [...] encounter Miscellaneous Notes * Telephone Encounter - ILEANA Willams - 05/21/2025 4:35 PM EDT Called regarding blood sugar logs from 05/14/25-05/19/25. Amber had three elevated fasting blood sugars and wonders what she can do to get them down. She has tried the Je [employer] shakes. Suggested to have closer to a 30 gram snack that has more fiber and 10-15 grams of protein. Encouraged to refer to the snack list given in class and those designated with an asterisk. We discussed not goinggreater than 10 hours between her snack in the evening and checking her blood sugar in the morning and being active for 20-30 minutes after supper. Amber says that gives her some things to work on and she will send in blood sugars next week. documented in this encounter Plan of Treatment Upcoming Encounters Date Type Department Care Team (Late st Contact Info) Description 06/04/2025 1:00 PM EDT Appointment [facility] - Ultrasound [address] [place] [address] Jose Rodriguez, DO [address] [place] [address] [address] [place] [address] documented as of this encounter Visit Diagnoses Not on filedocumented in this encounter
--- OUTSIDE RECORDS SUMMARY | 2025-05-22 15:43 | XMS_ITS | Clinical Summary ---
Author Organization [facility] [employer] tem Address [facility]-[id number] [address] [place] [address] Care Team Providers Care Fitness Services Manager Name Role Phone Unavailable Primary Care Provider [...] Encounters Date Type Department Care Team Description 05/21/2025 Telephone Maternal- Medicine at [facility] [address] [place] [address] Chante Muse LD 05/13/2025 1:30 PM EDT Support Visit Maternal- Medicine at [facility] [address] [place] [address] Marjorie Rico, RN Xenia Rayo RD Gestational diabetes mellitus (GDM) in third trimester, gestational diabetes method of control unspecified 05/13/2025 Travel 05/10/2025 Abstract Maternal- Medicine at [facility] [address] [place] [phone] External, Scanning Provider from Last 3 Months [...] Info) Description 06/04/2025 1:00 PM EDT Appointment [facility] - Ultrasound [address] [place] [address] Jose Rodriguez R, DO [address] [place] [address] Dr [address] [place] [address] Health Maintenance Due Date Last Done Comments [...] ORDERABLES Final Resul t Performing Organization Address City/[facility]/[employer] de Phone Number MANUALLY TRANSCRIBED RESULTS * 2nd hr Glucose Tolerance 100 gm load (05/04/2025) Glucose Tolerance Test 2 Hour 186 MANUALLY TRANSCRIBED RESULTS Blood Venous blood / Unknown us Not In System Ref Prov LAB BLOOD ORDERABLES Kayli l Result Performing Organization Address [facility] de Phone Number MANUALLY TRANSCRIBED RESULTS * Glucose tolerance, 1 hour (05/04/2025) Glucose Tolerance Test 1 Hour 234 MANUALLY TRANSCRIBED RESULTS Blood Venous blood / Unknown us Not In System Ref Prov LAB BLOOD ORDERABLES Kayli l Result Performing Organization Address City/[facility]/ZIP Co de Phone Number MANUALLY TRANSCRIBED RESULTS * Glucose tolerance, 3 hours (05/04/2025) Glucose Tolerance Test 3 Hour 133 MANUALLY TRANSCRIBED RESULTS Blood Venous blood / Unknown us Not In System Ref Prov LAB BLOOD ORDERABLES Kayli l Result Performing Organization Address City/[facility]/[employer] Phone Number MANUALLY TRANSCRIBED RESULTS [...] TRANSCRIBED RESULTS from Last 3 Months Insurance [facility] [employer]
--- OUTSIDE RECORDS SUMMARY | 2025-05-22 15:43 | XMS_ITS | Encounter Summary ---
Author Organization [facility] [employer] [facility] tem Address [id number] [address] [place] [address] Care Team Providers Care Zipper Joiner Name Role Phone Unavailable Primary Care Provider Unavailabl e Encounter Details Date Type Department Care Team (Late Contact Info) Description 05/10/2025 Abstract [facility]- [facility] at [facility] [address] [place] [id number] External, Scanning Provider Social History Tobacco Use [...] Info) Description 06/04/2025 1:00 PM EDT Appointment [facility] - Ultrasound [address] [place] [id number] Jose Rodriguez, DO [address] [place] [address] documented as of this encounter Procedures Procedure [...] ORDERABLES Kayli l Result Performing Organization Address [facility] de Phone Number MANUALLY TRANSCRIBED RESULTS * Glucose, tolerance fasting (05/04/2025) Glucose Tolerance Test Fasting 108 MANUALLY TRANSCRIBED RESULTS Blood Venous blood / Unknown us Not In System Ref Prov LAB BLOOD ORDERABLES Kayli l Result Performing Organization Address [facility] Co de Phone Number MANUALLY TRANSCRIBED RESULTS * Glucose tolerance, 1 hour (05/04/2025) Glucose Tolerance Test 1 Hour 234 MANUALLY TRANSCRIBED RESULTS Blood Venous blood / Unknown us Not In System Ref Prov LAB BLOOD ORDERABLES Kayli l Result Performing Organization Address [facility] de Phone Number MANUALLY TRANSCRIBED RESULTS * 2nd hr Glucose Tolerance 100 gm load (05/04/2025) Glucose Tolerance Test 2 Hour 186 MANUALLY TRANSCRIBED RESULTS Blood Venous blood / Unknown us Not In System Ref Prov LAB BLOOD ORDERABLES Kayli l Result Performing Organization Address [place]/[facility] de Phone Number MANUALLY TRANSCRIBED RESULTS * Glucose 1h post 50g load (04/27/2025) Glucose, 1 hr PP 50GM dose 171 MANUALLY TRANSCRIBED RESULTS Blood Venous blood / Unknown us Not In System Ref Prov LAB BLOOD ORDERABLES Kayli l Result Performing Organization Address [place]/[facility] Co de Phone Number MANUALLY TRANSCRIBED RESULTS * Unlisted Lab Test (01/05/2025) 01/05/2025 us Not In System Ref Prov LAB BLOOD ORDERABLES Kayli l Result Performing Organization Address [facility] de Phone Number MANUALLY TRANSCRIBED RESULTS * Free Cell DNA (Non-[facility] Send Out) (01/05/2025) 01/05/2025 us Not In System Ref Prov LAB BLOOD ORDERABLES Kayli l Result Performing Organization Address [facility] de Phone Number MANUALLY TRANSCRIBED RESULTS * Hemoglobin A1c (01/05/2025) Hemoglobin A1C 5.0 4.0 - 6.0 % MANUALLY TRANSCRIBED RESULTS Blood Venous blood / Unknown us Scanning Provider External LAB BLOOD ORDERABLES Final Result Performing Organization Address [place]/[facility] Co de Phone Number MANUALLY TRANSCRIBED RESULTS documented in this encounter Visit Diagnoses Not on filedocumented in this encounter
--- OUTSIDE RECORDS SUMMARY | 2025-05-22 15:44 | XMS_ITS | Encounter Summary ---
Author Organization [facility] tem Address [id number] [address] [place] [address] Care Team Providers Care Natural Resource Technician Name Role Phone Unavailable Primary Care Provider [...] Info) Description 06/04/2025 1:00 PM EDT Appointment [facility] [place] - Ultrasound [address] [place] [phone] Jose Rodriguez, DO [address] [place] [address] documented as of this encounter Visit Diagnoses Not on filedocumented in this encounter
--- OUTSIDE RECORDS SUMMARY | 2025-05-22 15:44 | XMS_ITS | Patient Health Record ---
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 Immune >0.99 [address] [place], [place] [id number] Able Bodied Seaman: Andrew Harris PhD, Phone: [phone] Performing Lab: see note - [facility] LB Type and Screen Reviewed date:07/23/2024 08:22:00 AM Interpretation: Performing Lab: Notes/Report: The [facility] , Blood Type A Positive Antibody Screen NEGATIVE HIV Ab/p24 Ag with Reflex Reviewed date:07/23/2024 08:22:00 AM Interpretation: Performing Lab: Notes/Report: [facility] , HIV Ab/p24 Ag Screen Non Reactive Non Reactive detected. There is no laboratory evidence of HIV infection. Able Bodied Seaman: Andrew Harris PhD, Phone: [phone] HIV-1/HIV-2 antibodies and HIV-1 p24 antigen were NOT HIV Negative Performed at: [facility] [address] [place] [phone] Performing Lab: see note - [facility] LB Rapid Plasma Reagin, Quant Reviewed date:07/23/2024 08:22:00 AM Interpretation: Performing Lab: Notes/Report: [facility] , Rapid Plasma Reagin, Quant Non Reactive NonRea<1:1 titer treponema-specific assay should be utilized, such as Performed at: [facility] infection, a reflex cascade that includes both RPR and a screening and diagnosis of syphilis. This test is Treponema pallidum (Syphilis) Screening [place] (246214) or Able Bodied Seaman: Andrew Harris PhD, Phone: [phone] Rapid Plasma Reagin (RPR) Test With Reflex to Quantitative Please Note: This test does not meet current guidelines for (542924). RPR and Confirmatory Treponema pallidum Antibodies [address] [place] [phone] treated for syphilis infection. To screen for [...] infection is Performing Lab: see note - [facility] LB HBsAg Screen Reviewed date:07/23/2024 08:22:00 AM Interpretation: Performing Lab: Notes/Report: [facility] , HBsAg Screen Negative Negative Able Bodied Seaman: Andrew Harris PhD, Phone: [phone] [address] [place], [place] [phone] Performed at: [facility] Performing Lab: see note - [facility] LB CBC AUTO DIFF Reviewed date:08/03/2024 08:30:13 AM Interpretation: Performing Lab: Notes/Report: The [facility] , White Blood Count 11.1 4.0-11.0 [...] Performing Lab: see note ML - The [facility] LB PREG QUANT HCG Reviewed date:08/03/2024 08:30:13 AM Interpretation: Performing Lab: Notes/Report: The [facility] , HCG Quantitative 1656 15,000-200,000 6-8 WEEKS 10,000-100,000 2-3 MONTHS 10,000-100,000 5-6 WEEKS 1,000-50,000 4-5 WEEKS 100-5,000 2-3 WEEKS 50-500 1-2 WEEKS 5-50 0.2-1 WEEK 500-10,000 3-4 WEEKS Performing Lab: see note ML - [facility] PROF 14(COMP METB) Reviewed date:08/03/2024 08:30:13 AM Interpretation: Performing Lab: Notes/Report: The [facility] , Sodium 140 136-145 mmol/L Potassium [...] see note ML - The [facility] US OB transvaginal Reviewed date:08/03/2024 08:30:13 AM Interpretation: Performing Lab: Notes/Report: Source Facility: [place] [address] Ultrasound Report Signed Patient: VIMAL FUNES MR#: [id number] : 2000 Acct:[id number] Age/Sex: 24 / F ADM Date: 08/02/24 Loc: ER Attending Dr: Ordering Physician: Kishan Cosby Date of Service: 08/02/24 Procedure(s): US OB transvaginal Accession Number(s): [id number] cc: JENNIFER SEE ; Kishan Cosby [place] [id number] Patient Name: VIMAL FUNES MRN: [id number] date: 2000 Sex: F Assigned Patient Location: ER Current Patient Location: ER Accession/Order Number: [id number] Exam Date: 08/02/2024 19:17 Report Date: 08/02/2024 [...] M.D. Signed By: 08/02/242126 DD/ 23 TD/TT: Ironworker Machine Operator: [place] [address] Ultrasound Report Signed Patient: VIMAL FUNES MR#: [id number] : 2000 Acct:[id number] Age/Sex: 24 / F ADM Date: 08/02/24 Loc: ER Attending Dr: Ordering Physician: Kishan Cosby Date of Service: 08/02/24 Procedure(s): US OB transvaginal Accession Number(s): [id number] cc: JENNIFER SEE ; Kishan Cosby [place] [id number] Patient Name: VIMAL FUNES MRN: [id number] date: 2000 Sex: F Assigned Patient Location: ER Current Patient Location: ER Accession/Order Number: [id number] Exam Date: 19:17 Report Date: 08/02/2024 21:24 [...] M.D. Signed By: 08/02/242126 DD/ 23 TD/TT: Ironworker Machine Operator: CBC AUTO DIFF Reviewed date:08/10/2024 08:58:56 AM Interpretation: Performing Lab: Notes/Report: The [facility] , White Blood Count 8.9 4.0-11.0 [...] 3/uL Performing Lab: see note ML - [facility] PREG QUANT HCG Reviewed date:08/10/2024 08:58:56 AM Interpretation: Performing Lab: Notes/Report: The [facility] , HCG Quantitative 240 50-500 1-2 WEEKS 1,000-50,000 4-5 WEEKS 15,000-200,000 6-8 WEEKS 10,000-100,000 2-3 MONTHS 100-5,000 2-3 WEEKS 500-10,000 3-4 WEEKS 5-50 0.2-1 WEEK 10,000-100,000 5-6 WEEKS Performing Lab: see note ML - [facility] US OB transvaginal Reviewed date:08/10/2024 08:58:56 AM Interpretation: Performing Lab: Notes/Report: Source Facility: [place] [address] Ultrasound Report Signed Patient: VIMAL FUNES MR#: [id number] : 2000 Acct:[id number] Age/Sex: 24 / F ADM Date: 08/10/24 Loc: SURGOUT Attending Dr: Mackenzie Rodriguez D.O. Ordering Physician: Mackenzie Rodriguez D.O. Date of Service: 08/10/24 Procedure(s): US OB transvaginal Accession Number(s): [id number] cc: JENNIFER SEE ; Mackenzie Rodriguez D.O. [place] [address] Patient Name: VIMAL FUNES MRN: [id number] date: 2000 Sex: F Assigned [facility] Current Patient Location: [facility] Accession/Order Number: [id number] Exam Date: 08/10/2024 08:10 Report Date: 08/10/2024 [...] Herrera M.D. Signed By: 08/10/2447 DD/ TD/TT: Ironworker Machine Operator: [place] [address] Ultrasound Report Signed Patient: VIMAL FUNES MR#: [id number] : 2000 Acct:[id number] Age/Sex: 24 / F ADM Date: 08/10/24 Loc: SURGOUT Attending Dr: Mackenzie Rodriguez D.O. Ordering Physician: Mackenzie Rodriguez D.O. Date of Service: 08/10/24 Procedure(s): US OB transvaginal Accession Number(s): [id number] cc: JENNIFER SEE ; Mackenzie Rodriguez D.O. [address] [address] Patient Name: VIMAL FUNES MRN: [id number] date: 2000 Sex: F Assigned Patient [facility]: [facility] Current Patient Location: [facility] Accession/Order Number: [id number] Exam Date: 08:10 Report Date: 08/10/2024 08:44 [...] Herrera M.D. Signed By: 08/10/2447 DD/ TD/TT: Ironworker Machine Operator: PREG QUANT HCG Reviewed date:08/20/2024 11:36:34 AM Interpretation: Performing Lab: Notes/Report: The [facility] , HCG Quantitative 6 5-50 0.2-1 WEEK 500-10,000 3-4 WEEKS 15,000-200,000 6-8 WEEKS 10,000-100,000 2-3 MONTHS 1,000-50,000 4-5 WEEKS 50-500 1-2 WEEKS 100-5,000 2-3 WEEKS 10,000-100,000 5-6 WEEKS Performing Lab: see note ML - [facility] LB PREG QUANT HCG Reviewed date:11/20/2024 01:38:35 PM Interpretation: Performing Lab: Notes/Report: The [facility] , HCG Quantitative 6254 5-50 0.2-1 WEEK 10,000-100,000 2-3 MONTHS 500-10,000 3-4 WEEKS 100-5,000 2-3 WEEKS 15,000-200,000 6-8 WEEKS 10,000-100,000 5-6 WEEKS 50-500 1-2 WEEKS 1,000-50,000 4-5 WEEKS Performing Lab: see note ML - The [facility] LB PREG QUANT HCG Reviewed date:11/22/2024 08:59:16 AM Interpretation: Performing Lab: Notes/Report: The [facility] , HCG Quantitative 78396 5-50 0.2-1 WEEK 100-5,000 2-3 WEEKS 1,000-50,000 4-5 WEEKS 10,000-100,000 2-3 MONTHS 500-10,000 3-4 WEEKS 15,000-200,000 6-8 WEEKS 10,000-100,000 5-6 WEEKS 50-500 1-2 WEEKS Performing Lab: see note ML - [facility] LB CBC AUTO DIFF Reviewed date:01/07/2025 01:05:16 PM Interpretation: Performing Lab: Notes/Report: The [facility] , White Blood Count 9.2 4.0-11.0 [...] 10 3/uL Performing Lab: see note - [facility] LB DRUG SCREEN RAPID (URINE) Reviewed date:01/07/2025 01:05:16 PM Interpretation: Performing Lab: Notes/Report: [facility] , Cannabinoid Screen Urine NEGATIVE [...] Lab: see note ML - [facility] LB GLYCOHEMOGLOBIN A1C Reviewed date:01/07/2025 01:05:16 PM Interpretation: Performing Lab: Notes/Report: [facility] , Glycohemoglobin A1C 5.0 4.5-6.2 % > 7.0 ADA RECOMMENDED LIMIT 4.0 - 6.0 ADA THERAPEUTIC TARGET < 7.0 ACTION SUGGESTED Estimated Average Glucose 97 Performing Lab: see note - [facility] LB RUBELLA AB IGG Reviewed date:01/07/2025 01:05:16 PM Interpretation: Performing Lab: Notes/Report: [facility] , Rubella Antibodies, IgG 1.57 Immune > 0.99 index Performed at: [facility] Immune >0.99 Equivocal 0.90 - 0.99 [address] [place], [place] [phone] Non-immune <0.90 Able Bodied Seaman: Andrew Harris PhD, Phone: [phone] Performing Lab: see note - [facility] LB HIV Ab/p24 Ag with Reflex Reviewed date:01/07/2025 01:05:16 PM Interpretation: Performing Lab: Notes/Report: [facility] , HIV Ab/p24 Ag Screen Non Reactive Non Reactive Performed at: [facility] HIV-1/HIV-2 antibodies and HIV-1 p24 antigen were NOT Able Bodied Seaman: Andrew Harris PhD, Phone: [phone] HIV Negative [address] [place] [phone] detected. There is no laboratory evidence of HIV infection. Performing Lab: see note - [facility] LB Rapid Plasma Reagin, Quant Reviewed date:01/07/2025 01:05:16 PM Interpretation: Performing Lab: Notes/Report: [facility] , Rapid Plasma Reagin, Quant Non Reactive NonRea<1:1 titer treated for syphilis infection. To screen for syphilis Treponema pallidum (Syphilis) Screening [place] (596114) or Able Bodied Seaman: Andrew Harris PhD, Phone: [phone] treponema-specific assay should be utilized, such as RPR and Confirmatory Treponema pallidum Antibodies (589334). Please Note: This test does not meet current guidelines for Rapid Plasma Reagin (RPR) Test With Reflex to Quantitative Performed at: [facility] infection, a reflex cascade that includes both RPR and a [address] [place] [phone] intended for following treatment response in patients being screening and diagnosis of syphilis. This test is Performing Lab: see note [facility] LB HCV Antibody RFX to Quant PC R Reviewed date:01/07/2025 01:05:16 PM Interpretation: Performing Lab: Notes/Report: [facility] , HCV Ab Non Reactive Non Reactive Interpretation: Comment . suspected (which may be delayed in an immunocompromised Performed at: [address] [phone] Able Bodied Seaman: Andrew Harris PhD, Phone: [phone] individual), or other evidence exists to indicate HCV Not infected with HCV unless early or acute infection is infection. Performing Lab: see note [facility] LB HBsAg Screen Reviewed date:01/07/2025 01:05:16 PM Interpretation: Performing Lab: Notes/Report: [facility] , HBsAg Screen Negative Negative Able Bodied Seaman: Andrew Harris PhD, Phone: [phone] Performed at: [facility] [address], [place] [phone] Performing Lab: see note [facility] LB Urine Culture, Routine Reviewed date:01/07/2025 01:05:16 PM Interpretation: Performing Lab: Notes/Report: [facility] , Urine Culture, Routine See Below For Report Urine Culture, Routine Urine Culture, Routine Mixed urogenital tami Urine Culture, Routine Urine Culture, Routine 50,000-100,000 co lony forming units per mL Urine Culture, Routine Urine Culture, Routine Performed at: [facility] Urine Culture, Routine Urine Culture, Routine [address], [place] [phone] Urine Culture, Routine Urine Culture, Routine Able Bodied Seaman: Riky Harris PhD, Phone: [phone] Urine Culture, Routine Performing Lab: see note SEE REPORT - High School Math Tutor Id information not found for OBX-specific online producer legend [facility] LB Box Test Reviewed date:01/07/2025 01:05:16 PM Interpretation: Performing Lab: Notes/Report: Treater BOX [facility] , BOX Test Sent Out Treater BOX Test Reference Lab Treater BOX Test Date Sent 01-05-25 Performing Lab: see note - [facility] LB IGP,Aptima HPV,Age Gdln Reviewed date:02/25/2025 03:13:18 [...] of containers..01 ThinPrep Vial Performed at: [address] [facility] [place] [address] 01 =[facility] IGP, rfx Aptima HPV ASCU Note . Able Bodied Seaman: Jenise Byrne MD, Phone: [phone] <-Panic Low,>-Panic High,A-Abnormal,AA-Cri tical Abnormal NEGATIVE FOR INTRAEPITHELIAL LESION OR MALIGNANCY. occur. The Pap smear is a screening test designed to aid in the should not be used as the sole means of detecting cervical Performed at: [facility] uterine cervix. It is not a diagnostic procedure and cancer. Both false-positive and false-negative reports do Performed at: =[facility] This liquid based ThinPrep(R) pap test was screened with Satisfactory for evaluation. Endocervical and/or squamous metaplastic L-Low Normal,H-High Normal,LL-Alert Low,HH-Alert High Whitney Alvarez Application Developer Manager (ASCP) Performed at: cells (endocervical component) are present. Note: Note 02 . [address] [facility] [place] [address] 02 [facility] Able Bodied Seaman: Jenise Byrne MD, Phone: [phone] [address] [facility], [place] [phone] . 02 Test Methodology: Note 02 TESTS RESULT FLAG UNITS REF RANGE LAB Performed by: 02 The HPV DNA reflex criteria were not met with this specimen Specimen adequacy: 02 FLAG LEGEND: Jenise Byrne MD, DIAGNOSIS: 02 detection of premalignant and malignant conditions of the the use of an image guided system. [address] [facility], [place] [phone] result therefore, no HPV testing was performed. Performing Lab: see note LC - [facility] LB US OB cervical length Reviewed date:03/14/2025 10:39:54 AM Interpretation: Performing Lab: Notes/Report: Source Facility: [place] [address] Ultrasound Report Signed Patient: VIMAL FUNES MR#: [id number] : 2000 Acct:[id number] Age/Sex: 24 / F ADM Date: 03/08/25 Loc: US Attending Dr: Mackenzie Rodriguez D.O. Ordering Physician: Mackenzie Rodriguez D.O. Date of Service: 03/08/25 Procedure(s): US OB cervical length Accession Number(s): [id number] cc: JENNIFER SEE ; Mackenzie Rodriguez D.O. [place] [address] Patient Name: VIMAL FUNES MRN: [id number] date: 2000 Sex: F Assigned Patient Location: US Current Patient Location: US Accession/Order Number: [id number] Exam Date: 03/08/2025 20:31 Report Date: 03/08/2025 [...] Knapp M.D. 03/08/2025 8:36 PM Dictation Location: [employer] Electronically authenticated by: [id number] Y Date: 03/08/2025 20:36 Dictated By: Shivam Knapp D.O. Signed By: 03/08/252037 DD/ 35 TD/TT: Ironworker Machine Operator: [place] [address] Ultrasound Report Signed Patient: VIMAL UFNES MR#: [id number] : 2000 Acct:[id number] Age/Sex: 24 / F ADM Date: 03/08/25 Loc: US Attending Dr: Mackenzie Rodriguez D.O. Ordering Physician: Mackenzie Rodriguez D.O. Date of Service: 03/08/25 Procedure(s): US OB cervical length Accession Number(s): [id number] cc: JENNIFER SEE ; Mackenzie Rodriguez D.O. [place] [id number] Patient Name: VIMAL FUNES MRN: [id number] date: 2000 Sex: F Assigned Patient Location: US Current Patient Location: Accession/Order Number: [id number] Exam Date: 03/08/2025 20:31 Report Date: 03/08/2025 [...] Knapp M.D. 03/08/2025 8:36 PM Dictation Location: [place] [address] Electronically authenticated by: [id number] Y Date: 03/08/2025 20:36 Dictated By: Shivam Knapp D.O. Signed By: 03/08/252037 DD/ 35 TD/TT: Ironworker Machine Operator: US OB anatomy Reviewed date:03/14/2025 10:39:54 AM Interpretation: Performing Lab: Notes/Report: Source Facility: [facility] [place] [address] [place] [address] Ultrasound Report Signed Patient: VIMAL FUNES MR#: [id number] : 2000 Acct:[id number] Age/Sex: 24 / F ADM Date: 03/08/25 Loc: US Attending Dr: Mackenzie Rodriguez D.O. Ordering Physician: Mackeznie Rodriguez D.O. Date of Service: 03/08/25 Procedure(s): US OB anatomy Accession Number(s): [id number] cc: JENNIFER SEE ; Mackenzie Rodriguez D.O. [address] [phone] Patient Name: VIMAL FUNES MRN: [facility]:[id number] date: 2000 Sex: F Assigned Patient Location: US Current Patient Location: US Accession/Order Number: [id number] Exam Date: 03/08/2025 20:31 Report Date: 03/08/2025 [...] Knapp M.D. 03/08/2025 8:36 PM Dictation Location: [employer] [facility] Electronically authenticated by: [id number] Y Date: 03/08/2025 20:36 Dictated By: Shivam Knapp D.O. Signed By: 03/08/252037 DD/ 35 TD/TT: Ironworker Machine Operator: The [address] [address] Ultrasound Report Signed Patient: VIMAL FUNES MR#: [id number] : 2000 Acct:[id number] Age/Sex: 24 / F ADM Date: 03/08/25 Loc: US Attending Dr: Mackenzie Rodriguez D.O. Ordering Physician: Mackenzie Rodriguez D.O. Date of Service: 03/08/25 Procedure(s): US OB anatomy Accession Number(s): [id number] cc: JENNIFER SEE ; Mackenzie Rodriguez D.O. [address] [address] Patient Name: VIMAL FUNES MRN: [id number] date: 2000 Sex: F Assigned Patient Location: US Current Patient Location: US Accession/Order Number: [id number] Exam Date: 03/08/2025 20:31 Report Date: 03/08/2025 [...] Knapp M.D. 03/08/2025 8:36 PM Dictation Location: [place] [address] Electronically authenticated by: [id number] Y Date: 03/08/2025 20:36 Dictated By: Shivam Knapp D.O. Signed By: 03/08/252037 DD/ 35 TD/TT: Ironworker Machine Operator: CBC AUTO DIFF Reviewed date:04/29/2025 09:37:12 AM Interpretation: Performing Lab: Notes/Report: [facility] , White Blood Count 12.5 [...] Lab: see note ML - [facility] LB Glucose 1 Hour Reviewed date:04/29/2025 09:37:12 AM Interpretation: Performing Lab: Notes/Report: [facility] , Glucose 1 Hour 171 <130 mg/dL Performing Lab: see note ML - [facility] LB BUN Reviewed date:05/06/2025 10:03:33 AM Interpretation: Performing Lab: Notes/Report: The [facility] , Blood Urea Nitrogen 8.0 7.0-18.0 mg/dL Performing Lab: see note ML - [facility] LB CBC AUTO DIFF Reviewed date:05/06/2025 10:03:33 AM Interpretation: Performing Lab: Notes/Report: The [facility] , White Blood Count 12.5 4.0-11.0 [...] Performing Lab: see note ML - [facility] LB CREATININE Reviewed date:05/06/2025 10:03:33 AM Interpretation: Performing Lab: Notes/Report: The [facility] , Creatinine 0.37 0.55-1.02 mg/dL Estimated GFR ( Ashley >60 >=60 mL/min/1.73m 2 Estimated GFR (Non- Hortencia >60 >=60 mL/min/1.73m 2 Performing Lab: see note - [facility] LB LDH Reviewed date:05/06/2025 10:03:33 AM Interpretation: Performing Lab: Notes/Report: The [facility] , Lactate Dehydrogenase 163 81-234 U/L Performing Lab: see note - [facility] LB PTT Reviewed date:05/06/2025 10:03:33 AM Interpretation: Performing Lab: Notes/Report: The [facility] , Partial Thromboplastin Time 25.7 22.3-36.2 sec Performing Lab: see note [facility] SGOT Reviewed date:05/06/2025 10:03:33 AM Interpretation: Performing Lab: Notes/Report: The [facility] , Aspartate Amino Transferase 23 15-37 U/L Performing Lab: see note [facility] URIC ACID SERUM Reviewed date:05/06/2025 10:03:33 AM Interpretation: Performing Lab: Notes/Report: The [facility] , Uric Acid 3.7 2.6-6.0 mg/dL Performing Lab: see note [facility] Prothrombin Time INR Reviewed date:05/06/2025 10:03:33 AM Interpretation: Performing Lab: Notes/Report: The [facility] , Prothrombin Time 10.1 9.0-11.6 sec INR 0.95 2.5-3.5 RECURRENT THROMBOSIS 2.0-3.0 CONDITIONS NOT LISTED BELOW 2.5-3.5 FOR PROSTHETIC HEART VALVE REPLACEMENT DESIRED INR: Performing Lab: see note - [facility] Glucose Tolerance 3 Hour Reviewed date:05/06/2025 10:03:33 AM Interpretation: Performing Lab: Notes/Report: The [facility] , Glucose Tolerance 3 Hour GLU FAST 108H (<95) Col: 05/04/25 0723 GLU 2HR 186H (<155) Col: 05/04/25 0927 GLU 1HR 234H (<180) Col: 05/04/25 0826 GLU 3HR 133 (<140) Col: 05/04/25 1028 Performing Lab: see note ML - [facility] US OB BPP w non-stress Reviewed date:05/06/2025 10:03:33 AM Interpretation: Performing Lab: Notes/Report: Source Facility: [place] [address] Ultrasound Report Signed Patient: VIMAL FUNES MR#: [id number] : 2000 Acct:[id number] Age/Sex: 25 / F ADM Date: 05/04/25 Loc: [facility] 250-[address]: Rossana Leach Ordering Physician: Rossana Leach Date of Service: 05/04/25 Procedure(s): US OB BPP w non-stress Accession Number(s): [id number] cc: Rossana Leach; JENNIFER SEE [place] [address] Patient Name: VIMAL FUNES MRN: [id number] date: 2000 Sex: F Assigned Patient Location: [facility] Current Patient Location: [facility] Accession/Order Number: [id number] Exam Date: 05/04/2025 12:08 Report Date: 05/04/2025 12:09 At the request of: ROSSANA LEACH Procedure: US OB BPP w non-stress Biophysical profile. Reason for exam: Gestational diabetes COMPARISON: None TECHNIQUE: Transabdominal imaging of the gravid uterus was obtained. FINDINGS: The policy intern reports a BPP of 8 out of 8. DANYA is normal at 12.4 cm. heart rate 150 bpm. US/US OB BPP w non-stress IMPRESSION: BPP 8 out of 8. Impression dictated by: Bulmaro Arias Jr., D.O. 05/04/2025 12:09 PM Dictation Location[facility] Electronically authenticated by: [id number] Y Date: 05/04/2025 12:09 Dictated By: Bulmaro Arias M.D. Signed By: 05/04/25 1212 DD/ 1209 TD/TT: Ironworker Machine Operator: The [address] [address] Ultrasound Report Signed Patient: VIMAL FUNES MR#: [id number] : 2000 Acct:[id number] Age/Sex: 25 / F ADM Date: 05/04/25 Loc: [facility] 250-[address]: Rossana Leach Ordering Physician: Rossana Leach Date of Service: 05/04/25 Procedure(s): US OB BPP w non-stress Accession Number(s): [id number] cc: Rossana Leach; JENNIFER SEE [place] [address] Patient Name: VIMAL FUNES MRN: [id number] date: 2000 Sex: F Assigned Patient Location: [facility] Current Patient Location: [facility] Accession/Order Number: [id number] Exam Date: 05/04/2025 12:08 Report Date: 05/04/2025 12:09 At the request of: ROSSANA LEACH Procedure: US OB fet al BPP w non-stress Biophysical profile. Reason for exam: Gestational diabetes COMPARISON: None TECHNIQUE: Transabdominal imaging of the gravid uterus was obtained. FINDINGS: The policy intern reports a BPP of 8 out of 8. DANYA is normal at 12.4 cm. heart rate 150 bpm. US/US OB BPP w non-stress IMPRESSION: BPP 8 ou t of 8. Impression dictated by: Bulmaro Arias Jr., D.O. 05/04/2025 12:09 PM Dictation Location: [place] [address] Electronically authenticated by: [id number] Y Date: 05/04/2025 12:09 Dictated By: Bulmaro Arias M.D. Signed By: 05/04/25 1212 DD/ 1209 TD/TT: Ironworker Machine Operator: OB growth Reviewed date:05/06/2025 10:03:33 AM Interpretation: Performing Lab: Notes/Report: Source Facility: [place] [address] [place] [address] Ultrasound Report Signed Patient: VIMAL FUNES MR#: [id number] : 2000 Acct:[id number] Age/Sex: 25 / F ADM Date: 05/04/25 Loc: [facility] 250-[address]: Rossana Leach Ordering Physician: Rossana Lecah Date of Service: 05/04/25 Procedure(s): US OB growth Accession Number(s): [id number] cc: Rossana Leach; JENNIFER SEE [place] [id number] Patient Name: VIMAL FUNES MRN: [id number] date: 2000 Sex: F Assigned Patient Location: [facility] Current Patient Location: [facility] Accession/Order Number: [id number] Exam Date: 05/04/2025 12:06 Report Date: 05/04/2025 [...] circumference and estimated weight. Impression dictated by: Bulamro Arias Jr., D.O. 05/04/2025 12:08 PM Dictation Location: [place] [address] Electronically authenticated by: [id number] Y Date: 05/04/2025 12:08 Dictated By: Bulmaro Arias M.D. Signed By: 05/04/25 1211 DD/ 1208 TD/TT: Ironworker Machine Operator: [place] [address] Ultrasound Report Signed Patient: VIMAL FUNES MR#: [id number] : 2000 Acct:[id number] Age/Sex: 25 / F ADM Date: 05/04/25 Loc: [facility] 250-[address]: Rossana Leach Ordering Physician: Rossana Leach Date of Service: 05/04/25 Procedure(s): US OB growth Accession Number(s): [id number] cc: Rossana Leach; JENNIFER SEE [place] [address] Patient Name: VIMAL FUNES MRN: [id number] date: 2000 Sex: F Assigned Patient Location: [facility] Current Patient Location: [facility] Accession/Order Number: [id number] Exam Date: 05/04/2025 12:06 Report Date: 05/04/2025 [...] Jr., D.O. 05/04/2025 12:08 PM Dictation Location: [facility] Electronically authenticated by: [id number] Y Date: 05/04/2025 12:08 Dictated By: Bulmaro Arias M.D. Signed By: 05/04/25 1211 DD/ 1208 TD/TT: Ironworker Machine Operator: US OB BPP w non-stress Reviewed date:05/13/2025 12:03:41 PM Interpretation: Performing Lab: Notes/Report: Source Facility: [facility] [place] [address] [place] [address] Ultrasound Report Signed Patient: VIMAL FUNES MR#: [id number] : 2000 Acct:[id number] Age/Sex: 25 / F ADM Date: 05/11/25 Loc: [facility] Deepak Attending Dr: Rossana Leach Ordering Physician: Rossana Leach Date of Service: 05/11/25 Procedure(s): US OB BPP w non-stress Accession Number(s): [id number] cc: Rossana Leach; JENNIFER SEE [place] [phone] Patient Name: VIMAL FUNES MRN: [id number] date: 2000 Sex: F Assigned Patient Location: [facility] Current Patient Location: [facility] Accession/Order Number: [id number] Exam Date: 05/11/2025 12:01 Report Date: 05/11/2025 12:02 At the request of: ROSSANA LEACH Procedure: US OB BPP w non-stress Biophysical profile. Reason for exam: Gestational diabetes COMPARISON: 05/04/2025 TECHNIQUE: Transabdominal imaging of the gravid uterus was obtained. FINDINGS: The policy intern reports a BPP of 8 out of 8. DANYA is normal at 11.9 cm. heart rate 138 bpm. US/US OB BPP w non-stress IMPRESSION: BPP 8 out of 8. Impression dictated by: Bulmaro Arias Jr., D.O. 05/11/2025 12:02 PM Dictation Location: [place] [address] Electronically authenticated by: [id number] Y Date: 05/11/2025 12:02 Dictated By: Bulmaro Arias M.D. 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: [place] [address] Ultrasound Report Signed Patient: VIMAL FUNES MR#: [id number] : 2000 Acct:[id number] Age/Sex: 25 / F ADM Date: 05/11/25 Loc: [facility] Alexey[address] Attending Dr: Rossana Leach Ordering Physician: Rossana Leach Date of Service: 05/11/25 Procedure(s): US OB BPP w non-stress Accession Number(s): [id number] cc: Rossana Leach; JENNIFER SEE [place] [phone] Patient Name: VIMAL FUNES MRN: [id number] date: 2000 Sex: F Assigned Patient Location: [facility] Current Patient Location: [facility] Accession/Order Number: [id number] Exam Date: 05/11/2025 12:01 Report Date: 05/11/2025 12:02 At the request of: ROSSANA LEACH Procedure: US OB fet al BPP w non-stress Biophysical profile. Reason for exam: Gestational diabetes COMPARISON: 05/04/2025 TECHNIQUE: Transabdominal imaging of the gravid uterus was obtained. FINDINGS: The policy intern reports a BPP of 8 out of 8. DANYA is normal at 11.9 cm. heart rate 138 bpm. US/US OB BPP w non-stress IMPRESSION: BPP 8 ou t of 8. Impression dictated by: Bulmaro Arias Jr., D.O. 05/11/2025 12:02 PM Dictation Location: [place] [address] Electronically authenticated by: [id number] Y Date: 05/11/2025 12:02 Dictated By: Bulmaro Arias M.D. 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: [place] Reviewed date:05/20/2025 11:23:08 AM Interpretation: Performing Lab: Notes/Report: The [facility] , Blood Urea Nitrogen 9.0 7.0-18.0 mg/dL Performing Lab: see note ML - The [facility] LB CBC AUTO DIFF Reviewed date:05/20/2025 11:23:08 AM Interpretation: Performing Lab: Notes/Report: The [facility] , White Blood Count 15.0 4.0-11.0 [...] Performing Lab: see note ML - [facility] LB CREATININE Reviewed date:05/20/2025 11:23:08 AM Interpretation: Performing Lab: Notes/Report: The [facility] , Creatinine 0.38 0.55-1.02 mg/dL Estimated GFR ( Ashley >60 >=60 mL/min/1.73m 2 Estimated GFR (Non- Hortencia >60 >=60 mL/min/1.73m 2 Performing Lab: see note ML - [facility] LB LDH Reviewed date:05/20/2025 11:23:08 AM Interpretation: Performing Lab: Notes/Report: The [facility] , Lactate Dehydrogenase 147 81-234 U/L Performing Lab: see note ML - [facility] LB PTT Reviewed date:05/20/2025 11:23:08 AM Interpretation: Performing Lab: Notes/Report: The [facility] , Partial Thromboplastin Time 25.6 22.3-36.2 sec Performing Lab: see note ML - [facility] LB SGOT Reviewed date:05/20/2025 11:23:08 AM Interpretation: Performing Lab: Notes/Report: The [facility] , Aspartate Amino Transferase 18 15-37 U/L Performing Lab: see note - [facility] LB URIC ACID SERUM Reviewed date:05/20/2025 11:23:08 AM Interpretation: Performing Lab: Notes/Report: The [facility] , Uric Acid 4.0 2.6-6.0 mg/dL Performing Lab: see note - [facility] LB Prothrombin Time INR Reviewed date:05/20/2025 11:23:08 AM Interpretation: Performing Lab: Notes/Report: The [facility] , Prothrombin Time 10.2 9.0-11.6 sec INR 0.96 2.5-3.5 RECURRENT THROMBOSIS 2.0-3.0 CONDITIONS NOT LISTED BELOW 2.5-3.5 FOR PROSTHETIC HEART VALVE REPLACEMENT DESIRED INR: Performing Lab: see note - [facility] US OB BPP w non-stress Reviewed date:05/20/2025 11:23:08 AM Interpretation: Performing Lab: Notes/Report: Source Facility: [place] [address] Ultrasound Report Signed Patient: VIMAL FUNES MR#: [id number] : 2000 Acct:[id number] Age/Sex: 25 / F ADM Date: 05/18/25 Loc: US Attending Dr: Rossana Leach Ordering Physician: Rossana Leach Date of Service: 05/18/25 Procedure(s): US OB BPP w non-stress Accession Number(s): [id number] cc: Rossana Leach; JENNIFER SEE [place] [address] Patient Name: VIMAL FUNES MRN: [id number] date: 2000 Sex: F Assigned Patient Location: [facility] Current Patient Location: Accession/Order Number: [id number] Exam Date: 05/18/2025 11:16 Report Date: 05/18/2025 [...] Acharya M.D. 05/18/2025 5:08 PM Dictation Location: [place] [address] Electronically authenticated by: [id number] Y Date: 05/18/2025 17:08 Dictated By: Heriberto Acharya M.D. 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: [place] [address] Ultrasound Report Signed Patient: VIMAL FUNES MR#: [id number] : 2000 Acct:[id number] Age/Sex: 25 / F ADM Date: 05/18/25 Loc: US Attending Dr: Rossana Leach Ordering Physician: Rossana Leach Date of Service: 05/18/25 Procedure(s): US OB BPP w non-stress Accession Number(s): [id number] cc: JENNIFER Watkins [address] [address] Patient Name: VIMAL FUNES MRN: [id number] date: 2000 Sex: F Assigned Patient Location: [facility] Current Patient Location: Accession/Order Number: [id number] Exam Date: 05/18/2025 11:16 Report Date: 05/18/2025 [...] Acharya M.D. 05/18/2025 5:08 PM Dictation Location: [facility] Electronically authenticated by: [id number] Y Date: 05/18/2025 17:08 Dictated By: Heriberto Acharya M.D. 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: Total Protein 24 Hour Urine Reviewed date:05/21/2025 08:48:02 AM Interpretation: Performing Lab: Notes/Report: The [facility] , Total Protein Urine Random 6.7 <=11.9 mg/dL Total Volume 24 Hour Urine 2900 Total Protein 24 Hour Urine 194.3 <=149.1 mg/24hr Performing Lab: see note ML - [facility] LB Total Protein 24 Hour Urine Reviewed date:05/07/2025 09:01:34 AM Interpretation: Performing Lab: Notes/Report: The [facility] , Total Protein Urine Random <6.0 <=11.9 mg/dL Total Volume 24 Hour Urine 3700 Performing Lab: see note - [facility] US OB incomplete anatomy Reviewed date:03/25/2025 09:01:39 AM Interpretation: Performing Lab: Notes/Report: Source Facility: [facility] [place] [address] [place] [address] Ultrasound Report Signed Patient: VIMAL FUNES MR#: [id number] : 2000 Acct:[id number] Age/Sex: 24 / F ADM Date: 03/23/25 Loc: US Attending Dr: Mackenzie Rodriguez D.O. Ordering Physician: Mackenzie Rodriguez D.O. Date of Service: 03/23/25 Procedure(s): US OB incomplete anatomy Accession Number(s): [id number] cc: JENNIFER SEE ; Mackenzie Rodriguez D.O. [address] [address] Patient Name: VIMAL FUNES MRN: [id number] date: 2000 Sex: F Assigned Patient Location: US Current Patient Location: US Accession/Order Number: [id number] Exam Date: 03/25/2025 08:23 Report Date: 03/25/2025 [...] Brown M.D. 03/25/2025 8:25 AM Dictation Location: [place] [address] Electronically authenticated by: [id number] Y Date: 03/25/2025 08:25 Dictated By: Meghana Brown M.D. Signed By: 03/25/25826 DD/ 4 TD/TT: Ironworker Machine Operator: The [place] [id number] Ultrasound Report Signed Patient: VIMAL FUNES MR#: [id number] : 2000 Acct:[id number] Age/Sex: 24 / F ADM Date: 03/23/25 Loc: US Attending Dr: Mackenzie Rodriguez D.O. Ordering Physician: Mackenzie Rodriguez D.O. Date of Service: 03/23/25 Procedure(s): US OB incomplete anatomy Accession Number(s): [id number] cc: JENNIFER SEE ; Mackenzie Rodriguez D.O. The [place] [id number] Patient Name: VIMAL FUNES MRN: [id number] date: 2000 Sex: F Assigned Patient Location: US Current Patient Location: Accession/Order Number: [id number] Exam Date: 03/25/2025 08:23 Report Date: 03/25/2025 [...] Brown M.D. 03/25/2025 8:25 AM Dictation Location: [place] [address] Electronically authenticated by: [id number] Y Date: 03/25/2025 08:25 Dictated By: Meghana Brown M.D. Signed By: 03/25/2527 DD/ TD/TT: Ironworker Machine Operator: Type and Screen Reviewed date:01/07/2025 01:05:16 PM Interpretation: Performing Lab: Notes/Report: [facility] , Blood Type A Positive Antibody Screen NEGATIVE Box Test Reviewed date:07/23/2024 08:22:00 AM Interpretation: Performing Lab: Notes/Report: [place] [facility] , BOX Test Sent Out UNITY BOX Test Reference Lab UNITY BOX Test Date Sent 07/21/24 Performing Lab: see note ML - [facility] LB Urine Culture, Routine Reviewed date:07/23/2024 08:22:00 AM Interpretation: Performing Lab: Notes/Report: [facility] , Urine Culture, Routine See Below For Report Urine Culture, Routine Urine Culture, Routine Mixed urogenital tami Urine Culture, Routine Urine Culture, Routine 10,000-25,000 col nan forming units per mL Urine Culture, Routine Urine Culture, Routine Performed at: - [facility] [place] Urine Culture, Routine Urine Culture, Routine [address] [place], [place] [id number] Urine Culture, Routine Urine Culture, Routine Able Bodied Seaman: Riky Harris PhD, Phone: [phone] Urine Culture, Routine Performing Lab: see note SEE REPORT - [employer] Tutor Id information not found for OBX-specific online producer legend LC - [facility] LB GLYCOHEMOGLOBIN A1C Reviewed date:07/23/2024 08:22:00 AM Interpretation: Performing Lab: Notes/Report: [facility] , Glycohemoglobin A1C 4.9 4.5-6.2 % > 7.0 ACTION SUGGESTED ADA RECOMMENDED LIMIT 4.0 - 6.0 ADA THERAPEUTIC TARGET < 7.0 Estimated Average Glucose 94 Performing Lab: see note ML - [facility] LB DRUG SCREEN RAPID (URINE) Reviewed date:07/23/2024 08:22:00 AM Interpretation: Performing Lab: Notes/Report: REEFLEX IF POSITIVE [facility] , Cannabinoid Screen Urine NEGATIVE NEGATIVE [...] Lab: see note ML - [facility] LB CBC AUTO DIFF Reviewed date:07/23/2024 08:22:00 AM Interpretation: Performing Lab: Notes/Report: The [facility] , White Blood Count 10.6 4.0-11.0 [...] Performing Lab: see note ML - [facility] LB Reason For Referral No Information [...] 06/05/2024 Encounters Encounter Location Date Provider Diagnosis [facility] [address] [place] [address] 06/05/2024 Jennifer See Z33.1 and Wellness examination [...] ACCESS PPO PLUS LOCAL PLAN [address] [place] [address] [phone] [id number] Vimal Funes Self - patient is the insured [employer] [place] [employer] [address] [place] [address] [id number] Vimal Funes Self - patient is the insured Medical (General) History Medical History History ICD Code lead poisoning Surgical History Surgery Date(Month/Year) ear tubes
[2025-05-22 16:02] VITALS: BP 131/79; PULSE 81
--- OUTSIDE RECORDS SUMMARY | 2025-05-22 17:49 | XMS_ITS | CCD ---
Author Organization [facility] Care Team Providers Care Pulp Beater Name Role Phone MICHAEL ., DR MANN [...] DR MANN Consulting Unavailable MICHAEL ., DR MNAN Admitting Unavailable MICHAEL ., DR MANN Attending [...] Unavailable MISC, DR DOMINIQUE Primary Care Unavailable NIKOLSKI, DR COCO Danielle Consulting Unavailable MICHAEL ., DR MANN Consulting Unavailable MICHAEL ., DR MANN Admitting Unavailable MICHAEL ., DR MANN Attending Unavailable MISC, DR DOMINIQUE Primary Care Unavailable MICHAEL ., DR MANN Consulting Unavailable MICHAEL ., DR MANN Admitting Unavailable MICHAEL ., DR MANN Attending Unavailable MISC, DR DOMINIQUE Primary Care Unavailable NIKOLSKI, DR COCO Danielle Consulting Unavailable MICHAEL ., [...] Glucose Monitoring Suppl (D-Care Glucometer) w/Device kit (11 sources) Start: 05-08-2025 End: 05-08-2026 Blood Glucose Monitoring Suppl (D-Care Glucometer) w/Device kit Indications: Gestational diabetes mellitus (GDM), antepartum, gestational diabetes method of control unspecified ([facility]) , Elevated glucose tolerance test 1 kit Daily Use four times daily to check FSBS. In the morning prior to breakfast & 1 hour after each meal for a total of 4times daily. 1 kit 05/08/2025 05/08/2026 Active isopropyl alcohol 0.7 ml/ml medicated pad (11 sources) Start: 05-08-2025 Alcohol Swabs (Alcohol Prep [...] source) Active 115/iron/folic acid ( 19 ORAL) (3 sources) 115/iron/folic acid ( 19 ORAL) Take [...] [30 weeks gestation of ] 05-14-2025 Episodic Residual codes; unclassified (2 sources) Gestation period, 31 weeks; Translations: [31 weeks gestation of ] 05-22-2025 Episodic Spontaneous (2 sources) Miscarriage; Translations: [Complete [...] Range Facility Urinalysis macro (dipstick) panel (U)on 05-22-2025 Bilirubin, UA Negative Negative - 4(70) +++ mg/dL [facility] Blood, UA Negative Negative - 50 Jason/mcL [facility] Clarity, UA Clear [facility] Glucose, UA Negative Negative - 2000(110) ++++ mg/dL [facility] Interpretation and review of laboratory results Normal [facility] Ketones, UA Negative Negative - 160(16) ++++ mg/dL [facility] Leukocytes, UA Negative Negative - 500+++ Carlos/mcL [facility] Nitrite, UA Negative Negative - Positive [facility] pH, UA 6 5 - 9 [facility] Protein, UA Negative Negative - 2000(20) ++++ mg/dL [facility] Spec Grav, UA 1.01 1 - 1.03 [facility] Urobilinogen, UA 0.2 0.2 - 12 mg/dL [facility] TBH TOTAL PROTEIN 24 HOUR UR INEon 05-20-2025 Interpretation and review of laboratory results Abnormal [facility] Protein (U) [Mass/Vol] 6.7 mg/dL NINF - 11.9 mg/dL [facility] TBH TOTAL PROTEIN 24 HOUR URINE 194.3 High [facility] TOTAL VOLUME 24 HOUR URINE 2900 mL/24hr [facility] ALL CBC WITH AUTO DIFFon BASOPHILS ABSOLUTE AUTO 0 [facility] Basophils/100 WBC (Bld) 0.1 % Low 0.2 - 2.0 % [facility] Eosinophils/100 WBC (Bld) 1.7 % 0.9 - 7.0 % [facility] Erythrocyte distribution width (RBC) [Ratio] 12.7 % 11.0 - 15.0 % [facility] Hematocrit (Bld) [Volume fraction] 38.1 % 36.0 - 48.0 % [facility] Hemoglobin (Bld) [Mass/Vol] 13.3 g/dL 12.0 - 16.0 g/dL [facility] IMMATURE GRANULOCYTES ABS AUTO 0.06 High [facility] Immature granulocytes/100 WBC (Bld) 0.4 % 0.0 - 0.5 % [facility] Interpretation and review of laboratory results Abnormal [facility] LYMPHOCYTES ABSOLUTE AUTO 1.4 [facility] Lymphocytes/100 WBC (Bld) 9 % Low 20.5 - 60.0 % [facility] MCH (RBC) [Entitic mass] 31.9 pg 26.7 - 34.0 pg [facility] MCHC (RBC) [Mass/Vol] 34.9 g/dL 29.9 - 35.2 g/dL [facility] MCV (RBC) [Entitic vol] 91.4 fL 81.0 - 99.0 fL [facility] MONOCYTES ABSOLUTE AUTO 0.7 [facility] Monocytes/100 WBC (Bld) 4.7 % 1.7 - 12.0 % [facility] NEUTROPHILS ABSOLUTE AUTO 12.6 High [facility] Neutrophils/100 WBC (Bld) 84.1 % High 43.0 - 75.0 % [facility] Platelet mean volume (Bld) [Entitic vol] 11.2 fL 9.5 - 13.5 fL [facility] TBH EO # 0.3 [facility] PLT 223 [facility] RBC 4.17 Low [facility] WBC 15 High [facility] US OB BPP W NON-STRESS on 05-18-2025 [place] [address] Ultrasound Report Signed Patient: VIMAL FUNES MR#: [id number] : 2000 Acct:[id number] Age/Sex: 25 / F ADM Date: 05/18/25 Loc: US Attending Dr: Rossana Ramos Ordering Physician: Rossana Ramos Date of Service: 05/18/25 Procedure(s): US OB BPP w non-stress Accession Number(s): [id number] cc: Rossana Ramos; JENNIFER SEE [place] [id number] Patient Name: VIMAL FUNES MRN: TBH:[id number] date: 2000 Sex: F Assigned Patient Location: [facility] Current Patient Location: Accession/Order Number: [id number] Exam Date: 05/18/2025 11:16 Report Date: 05/18/2025 17:08 At the request of: ROSSANA RAMOS Procedure: US OB BPP w non-stress US [...] Acharya M.D. 05/18/2025 5:08 PM Dictation Location: [place] [address] Electronically authenticated by: [id number] Y Date: 05/18/2025 17:08 Dictated By: Heriberto Acharya M.D. Signed By: 05/18/252016 DD/ 07 TD/TT: Entry Level Machine Operator: [facility] Radiology, Radiologist, MD - 05/18/2025 [place] [address] Ultrasound Report Signed Patient: VIMAL FUNES MR#: [id number] : 2000 Acct:[id number] Age/Sex: 25 / F ADM Date: 05/18/25 Loc: US Attending Dr: Rossana Ramos Ordering Physician: Rossana Rmaos Date of Service: 05/18/25 Procedure(s): US OB BPP w non-stress Accession Number(s): [id number] cc: Rossana Ramos; JENNIFER SEE [place] [id number] Patient Name: VIMAL FUNES MRN: [facility]:[id number] date: 2000 Sex: F Assigned Patient Location: [facility] Current Patient Location: Accession/Order Number: [id number] Exam Date: 05/18/2025 11:16 Report Date: 05/18/2025 17:08 At the request of: ROSSANA RAMOS Procedure: US OB BPP w non-stress US [...] Acharya M.D. 05/18/2025 5:08 PM Dictation Location: [place] [address] Electronically authenticated by: [id number] Y Date: 05/18/2025 17:08 Dictated By: Heriberto Acharya M.D. Signed By: 05/18/252016 DD/ 07 TD/TT: Entry Level Machine Operator: [facility] [place] Radiology Study observation (narrative) [facility] [place] US OB BPP W NON-STRESS Ordered By: Radiologist Radiology on 05-18-2025 [facility] [employer] [place] [employer] Work Phone: Glucose random or fasting- P OCTOrdered By: Sheridan Smallwood on 05-13-2025 External Glucose Fasting Or Random (Fbs) 80 [facility] [employer] [facility] US OB BPP W NON-STRESS on 05-11-2025 [place] [address] Ultrasound Report Signed Patient: VIMAL FUNES MR#: [id number] : 2000 Acct:[id number] Age/Sex: 25 / F ADM Date: 05/11/25 Loc: [facility] 253-[address]: Rossana Ramos Ordering Physician: Rossana Ramos Date of Service: 05/11/25 Procedure(s): US OB BPP w non-stress Accession Number(s): [id number] cc: Rossana Ramos; JENNIFER SEE [place] [address] Patient Name: VIMAL FUNES MRN: [id number]:[id number] date: 2000 Sex: F Assigned Patient Location: [facility] Current Patient Location: [facility] Accession/Order Number: [id number] Exam Date: 05/11/2025 12:01 Report Date: 05/11/2025 12:02 At the request of: ROSSANA RAMOS Procedure: US OB BPP w non-stress Biophysical profile. Reason for exam: Gestational diabetes COMPARISON: 05/04/2025 TECHNIQUE: Transabdominal imaging of the gravid uterus was obtained. FINDINGS: The window treatment installer reports a BPP of 8 out of 8. DANYA is normal at 11.9 cm. heart rate 138 bpm. US/US OB BPP w non-stress IMPRESSION: BPP 8 out of 8. Impression dictated by: Bulmaro Arias Jr., D.O. 05/11/2025 12:02 PM Dictation Location: [place] [address] Electronically authenticated by: [id number] Y Date: 05/11/2025 12:02 Dictated By: Bulmaro Arias M.D. Signed By: 05/11/25 1204 DD/ 1202 TD/TT: Entry Level Machine Operator: [facility] Radiology, Radiologist, MD - 05/11/2025 [place] [address] Ultrasound Report Signed Patient: VIMAL FUNES MR#: [id number] : 2000 Acct:[id number] Age/Sex: 25 / F ADM Date: 05/11/25 Loc: [facility] 253-[address]: Rossana Ramos Ordering Physician: Rossana Ramos Date of Service: 05/11/25 Procedure(s): US OB BPP w non-stress Accession Number(s): [id number] cc: Rossana Ramos; JENNIFER SEE [place] [id number] Patient Name: VIMAL FUNES MRN: [facility]:[id number] date: 2000 Sex: F Assigned Patient Location: [facility] Current Patient Location: [facility] Accession/Order Number: [id number] Exam Date: 05/11/2025 12:01 Report Date: 05/11/2025 12:02 At the request of: ROSSANA RAMOS Procedure: US OB BPP w non-stress Biophysical profile. Reason for exam: Gestational diabetes COMPARISON: 05/04/2025 TECHNIQUE: Transabdominal imaging of the gravid uterus was obtained. FINDINGS: The window treatment installer reports a BPP of 8 out of 8. DANYA is normal at 11.9 cm. heart rate 138 bpm. US/US OB BPP w non-stress IMPRESSION: BPP 8 out of 8. Impression dictated by: Bulmaro Arias Jr., D.O. 05/11/2025 12:02 PM Dictation Location: [place] [address] Electronically authenticated by: [id number] Y Date: 05/11/2025 12:02 Dictated By: Bulmaro Arias M.D. Signed By: 05/11/25 1204 DD/ 1202 TD/TT: Entry Level Machine Operator: [facility] Radiology Study observation (narrative) [facility] US OB BPP W NON-STRESS Ordered By: Radiologist Radiology on 05-11-2025 [facility] [employer] Work Phone: TBH TOTAL PROTEIN 24 HOUR UR INEon 05-06-2025 TOTAL PROTEIN URINE RANDOM <6.0 NINF - 11.9 mg/dL [facility] TOTAL VOLUME 24 HOUR URINE 3700 mL/24hr [facility] codetagcar e 2nd hr Glucose Tolerance 100 gm loadon 05-04-2025 Glucose Tolerance Test 2 Hour 186 [facility] ALL CBC WITH AUTO DIFFon BASOPHILS ABSOLUTE AUTO 0 [facility] Basophils/100 WBC (Bld) 0.2 % 0.2 - 2.0 % [facility] Eosinophils/100 WBC (Bld) 2.6 % 0.9 - 7.0 % [facility] Erythrocyte distribution width (RBC) [Ratio] 12.7 % 11.0 - 15.0 % [facility] Hematocrit (Bld) [Volume fraction] 39.5 % 36.0 - 48.0 % [facility] Hemoglobin (Bld) [Mass/Vol] 13.7 g/dL 12.0 - 16.0 g/dL [facility] IMMATURE GRANULOCYTES ABS AUTO 0.05 High [facility] Immature granulocytes/100 WBC (Bld) 0.4 % 0.0 - 0.5 % [facility] Interpretation and review of laboratory results Abnormal [facility] LYMPHOCYTES ABSOLUTE AUTO 1.6 [facility] Lymphocytes/100 WBC (Bld) 12.6 % Low 20.5 - 60.0 % [facility] MCH (RBC) [Entitic mass] 31.9 pg 26.7 - 34.0 pg [facility] MCHC (RBC) [Mass/Vol] 34.7 g/dL 29.9 - 35.2 g/dL [facility] MCV (RBC) [Entitic vol] 92.1 fL 81.0 - 99.0 fL [facility] MONOCYTES ABSOLUTE AUTO 0.6 [facility] Monocytes/100 WBC (Bld) 5 % 1.7 - 12.0 % [facility] NEUTROPHILS ABSOLUTE AUTO 9.9 High [facility] Neutrophils/100 WBC (Bld) 79.2 % High 43.0 - 75.0 % [facility] Platelet mean volume (Bld) [Entitic vol] 11 fL 9.5 - 13.5 fL [facility] TBH EO # 0.3 [facility] TBH PLT 226 [facility] TBH RBC 4.29 [facility] TBH WBC 12.5 High [facility] Glucose tolerance, 1 houron 05-04-2025 Glucose Tolerance Test 1 Hour 234 [facility] Glucose tolerance, 3 hourson 05-04-2025 Glucose Tolerance Test 3 Hour 133 [facility] Glucose, tolerance fastingon 05-04-2025 Glucose Tolerance Test Fasting 108 [facility] No Panel Informationon 05-04 [facility] US OB BPP W NON-STRESS on 05-04-2025 [place] [id number] Ultrasound Report Signed Patient: VIMAL FUNES MR#: [id number] : 2000 Acct:[id number] Age/Sex: 25 / F ADM Date: 05/04/25 Loc: [facility] 250-[address]: Rossana Ramos Ordering Physician: Rossana Ramos Date of Service: 05/04/25 Procedure(s): US OB BPP w non-stress Accession Number(s): [id number] cc: Rossana Ramos; JENNIFER SEE [address] [address] Patient Name: VIMAL FUNES MRN: TBH:[id number] date: 2000 Sex: F Assigned Patient Location: [facility] Current Patient Location: [facility] Accession/Order Number: [id number] Exam Date: 05/04/2025 12:08 Report Date: 05/04/2025 12:09 At the request of: ROSSANA RAMOS Procedure: US OB BPP w non-stress Biophysical profile. Reason for exam: Gestational diabetes COMPARISON: None TECHNIQUE: Transabdominal imaging of the gravid uterus was obtained. FINDINGS: The window treatment installer reports a BPP of 8 out of 8. DANYA is normal at 12.4 cm. heart rate 150 bpm. US/US OB BPP w non-stress IMPRESSION: BPP 8 out of 8. Impression dictated by: Bulmaro Arias Jr., D.O. 05/04/2025 12:09 PM Dictation Location: [facility] Electronically authenticated by: [id number] Y Date: 05/04/2025 12:09 Dictated By: Bulmaro Arias M.D. Signed By: 05/04/25 1212 DD/ 1209 TD/TT: Entry Level Machine Operator: [facility] Radiology, Radiologist, MD - 05/04/2025 [place] [address] Ultrasound Report Signed Patient: VIMAL FUNES MR#: [id number] : 2000 Acct:[id number] Age/Sex: 25 / F ADM Date: 05/04/25 Loc: [facility] 250-[address]: Rossana Ramos Ordering Physician: Rossana Ramos Date of Service: 05/04/25 Procedure(s): US OB BPP w non-stress Accession Number(s): [id number] cc: Rossana Ramos; JENNIFER SEE [place] [id number] Patient Name: VIMAL FUNES MRN: [facility]:[id number] date: 2000 Sex: F Assigned Patient Location: [facility] Current Patient Location: [facility] Accession/Order Number: [id number] Exam Date: 05/04/2025 12:08 Report Date: 05/04/2025 12:09 At the request of: ROSSANA RAMOS Procedure: US OB BPP w non-stress Biophysical profile. Reason for exam: Gestational diabetes COMPARISON: None TECHNIQUE: Transabdominal imaging of the gravid uterus was obtained. FINDINGS: The window treatment installer reports a BPP of 8 out of 8. DANYA is normal at 12.4 cm. heart rate 150 bpm. US/US OB BPP w non-stress IMPRESSION: BPP 8 out of 8. Impression dictated by: Bulmaro Arias Jr., D.O. 05/04/2025 12:09 PM Dictation Location: in[facility]ITALfund[facility] Electronically authenticated by: [id number] Y Date: 05/04/2025 12:09 Dictated By: Bulmaro Arias M.D. Signed By: 05/04/25 1212 DD/ 1209 TD/TT: Entry Level Machine Operator: [facility] [place] Radiology Study observation (narrative) [facility] US OB BPP W NON-STRESS Ordered By: Radiologist Radiology on 05-04-2025 [facility] [employer] Work Phone: US OB GROWTHon 05-04-2025 [place] [address] Ultrasound Report Signed Patient: VIMAL FUNES MR#: [id number] : 2000 Acct:[id number] Age/Sex: 25 / F ADM Date: 05/04/25 Loc: [facility] 250- Attending Dr: Rossana Ramos Ordering Physician: Rossana Ramos Date of Service: 05/04/25 Procedure(s): US OB growth Accession Number(s): [id number] cc: JENNIFER Watkins [place] [address] Patient Name: VIMAL FUNES MRN: [id number]:[id number] date: 2000 Sex: F Assigned Patient Location: [facility] Current Patient Location: [facility] Accession/Order Number: [id number] Exam Date: 05/04/2025 12:06 Report Date: 05/04/2025 [...] Jr., D.O. 05/04/2025 12:08 PM Dictation Location: [employer] Electronically authenticated by: [id number] Y Date: 05/04/2025 12:08 Dictated By: Bulmaro Arias M.D. Signed By: 05/04/25 1211 DD/ 1208 TD/TT: Entry Level Machine Operator: [facility] Radiology, Radiologist, - 05/04/2025 [place] [address] Ultrasound Report Signed Patient: VIMAL FUNES MR#: [id number] : 2000 Acct:[id number] Age/Sex: 25 / F ADM Date: 05/04/25 Loc: [place] [address]-[address]: Rossana Ramos Ordering Physician: Rossana Ramos Date of Service: 05/04/25 Procedure(s): US OB growth Accession Number(s): [id number] cc: JENNIFER Watkins [place] [id number] Patient Name: VIMAL FUNES MRN: [facility]:[id number] date: 2000 Sex: F Assigned Patient Location: [facility] Current Patient Location: [facility] Accession/Order Number: [id number] Exam Date: 05/04/2025 12:06 Report Date: 05/04/2025 [...] Jr., D.O. 05/04/2025 12:08 PM Dictation Location: [employer] Electronically authenticated by: [id number] Y Date: 05/04/2025 12:08 Dictated By: Bulmaro Arias M.D. Signed By: 05/04/25 1211 DD/ 1208 TD/TT: Entry Level Machine Operator: [facility] Radiology Study observation (narrative) [facility] OB GROWTHOrdered By: Jeimy ologwilly Radiology on 05-04-2025 [facility] Work Phone: Urinalysis macro (dipstick) panel (U)on 04-30-2025 Bilirubin, UA Negative Negative - 4(70) +++ mg/dL [facility] Blood, UA Negative Negative - 50 Jason/mcL [facility] Clarity, UA Clear [facility] re Color, UA Yellow [facility] e Glucose, UA Positive Negative - 1999(110) ++++ mg/dL [facility] Interpretation and review of laboratory results Abnormal [facility] Ketones, UA Negative Negative - 160(16) ++++ mg/dL [facility] Leukocytes, UA Positive Negative - 500+++ Carlos/mcL [facility] Nitrite, UA Negative Negative - Positive [facility] pH, UA 6 5 - 9 [facility] codetagcar e Protein, UA Negative Negative - 1999(20) ++++ mg/dL [facility] Spec Grav, UA 1.01 1 - 1.03 [facility] Urobilinogen, UA 1.0 0.2 - 12 mg/dL [facility] ALL CBC WITH AUTO DIFFon BASOPHILS ABSOLUTE AUTO 0 [facility] Basophils/100 WBC (Bld) 0.2 % 0.2 - 2.0 % [facility] Eosinophils/100 WBC (Bld) 2.2 % 0.9 - 7.0 % [facility] Erythrocyte distribution width (RBC) [Ratio] 12.9 % 11.0 - 15.0 % [facility] Hematocrit (Bld) [Volume fraction] 40 % 36.0 - 48.0 % [facility] Hemoglobin (Bld) [Mass/Vol] 13.6 g/dL 12.0 - 16.0 g/dL [facility] IMMATURE GRANULOCYTES ABS AUTO 0.04 High [facility] Immature granulocytes/100 WBC (Bld) 0.3 % 0.0 - 0.5 % [facility] Interpretation and review of laboratory results Abnormal [facility] LYMPHOCYTES ABSOLUTE AUTO 1.4 [facility] Lymphocytes/100 WBC (Bld) 10.8 % Low 20.5 - 60.0 % [facility] MCH (RBC) [Entitic mass] 31.7 pg 26.7 - 34.0 pg [facility] MCHC (RBC) [Mass/Vol] 34 g/dL 29.9 - 35.2 g/dL [facility] MCV (RBC) [Entitic vol] 93.2 fL 81.0 - 99.0 fL [facility] MONOCYTES ABSOLUTE AUTO 0.5 [facility] Monocytes/100 WBC (Bld) 4.3 % 1.7 - 12.0 % [facility] NEUTROPHILS ABSOLUTE AUTO 10.2 High [facility] Neutrophils/100 WBC (Bld) 82.2 % High 43.0 - 75.0 % [facility] Platelet mean volume (Bld) [Entitic vol] 10.6 fL 9.5 - 13.5 fL [facility] TBH EO # 0.3 [facility] TBH PLT 202 [facility] RBC 4.29 [facility] TB WBC 12.5 High [facility] Glucose 1h post 50g loadon 0 04-27-2025 Glucose, 1 hr PP 50GM dose 171 [facility] No Panel Informationon 04-27 [facility] Urinalysis macro (dipstick) panel (U)on 04-25-2025 Bilirubin, UA Negative Negative - 4(70) +++ mg/dL [facility] Blood, UA Negative Negative - 50 Jason/mcL [facility] Clarity, UA Clear [facility] re Color, UA Yellow [facility] Glucose, UA Negative Negative - 1999(110) ++++ mg/dL [facility] Interpretation and review of laboratory results Normal [facility] Ketones, UA Negative Negative - 160(16) ++++ mg/dL [facility] Leukocytes, UA Negative Negative - 500+++ Carlos/mcL [facility] Nitrite, UA Negative Negative - Positive [facility] pH, UA 6.5 5 - 9 [facility] Protein, UA Negative Negative - 1999(20) ++++ mg/dL [facility] Healthcare Spec Grav, UA 1.01 1 - 1.03 [facility] care Urobilinogen, UA 0.2 0.2 - 12 mg/dL [facility] Urinalysis macro (dipstick) panel (U)on 04-11-2025 Bilirubin, UA Negative Negative - 4(70) +++ mg/dL [facility] Blood, UA Negative Negative - 50 Jason/mcL [facility] Clarity, UA Clear [facility] Healthoh re Color, UA Yellow [facility] Health[facility] e Glucose, UA Negative Negative - 1999(110) ++++ mg/dL [facility] Interpretation and review of laboratory results Normal [facility] Ketones, UA Negative Negative - 160(16) ++++ mg/dL [facility] Leukocytes, UA Negative Negative - 500+++ Carlos/mcL [facility] Nitrite, UA Negative Negative - Positive [facility] pH, UA 7 5 - 9 [facility] Health[facility] e Protein, UA Negative Negative - 1999(20) ++++ mg/dL [facility] Spec Grav, UA 1.005 1 - 1.03 [facility] Urobilinogen, UA 1.0 0.2 - 12 mg/dL [facility] US OB INCOMPLETE ANATOMYon 0 03-25-2025 [place] [address] Ultrasound Report Signed Patient: VIMAL FUNES MR#: [id number] : 2000 Acct:[id number] Age/Sex: 24 / F ADM Date: 03/23/25 Loc: US Attending Dr: Jose Rodriguez D.O. Ordering Physician: Jose Rodriguez D.O. Date of Service: 03/23/25 Procedure(s): US OB incomplete anatomy Accession Number(s): [id number] cc: JENNIFER SEE ; Jose Rodriguez D.O. The [place] [id number] Patient Name: VIMAL FUNES MRN: [facility]:[id number] date: 2000 Sex: F Assigned Patient Location: US Current Patient Location: US Accession/Order Number: [id number] Exam Date: 03/25/2025 08:23 Report Date: 03/25/2025 [...] Brown M.D. 03/25/2025 8:25 AM Dictation Location: [place] [address] Electronically authenticated by: [id number] Y Date: 03/25/2025 08:25 Dictated By: Meghana Brown M.D. Signed By: 03/25/25826 DD/ 4 TD/TT: Entry Level Machine Operator: [facility] Radiology, Radiologist, MD - 03/25/[address] [address] Ultrasound Report Signed Patient: VIMAL FUNES MR#: [id number] : 2000 Acct:[id number] Age/Sex: 24 / F ADM Date: 03/23/25 Loc: US Attending Dr: Jose Rodriguez D.O. Ordering Physician: Jose Rodriguez D.O. Date of Service: 03/23/25 Procedure(s): US OB incomplete anatomy Accession Number(s): [id number] cc: JENNIFER SEE ; Jose Rodriguez D.O. [place] [id number] Patient Name: VIMAL FUNES MRN: [facility]:[id number] date: 2000 Sex: F Assigned Patient Location: US Current Patient Location: US Accession/Order Number: [id number] Exam Date: 03/25/2025 08:23 Report Date: 03/25/2025 [...] Brown M.D. 03/25/2025 8:25 AM Dictation Location: [place] [address] Electronically authenticated by: [id number] Y Date: 03/25/2025 08:25 Dictated By: Meghana Brown M.D. Signed By: 03/25/25826 DD/ 4 TD/TT: Entry Level Machine Operator: [facility] [place] Radiology Study observation (narrative) [facility] OB INCOMPLETE ANATOMYOrde red By: Radiologist Radiology on 03-25-2025 [facility] [employer] [place] Work Phone: Urinalysis macro (dipstick) panel (U)on 03-14-2025 Bilirubin, UA Negative Negative - 4(70) +++ mg/dL [facility] Blood, UA Negative Negative - 50 Jason/mcL [facility] Clarity, UA Clear [facility] codetagca re Color, UA Yellow [facility] Glucose, UA Negative Negative - 2000(110) ++++ mg/dL [facility] Interpretation and review of laboratory results Normal [facility] Ketones, UA Negative Negative - 160(16) ++++ mg/dL [facility] Leukocytes, UA Negative Negative - 500+++ Carlos/mcL [facility] Nitrite, UA Negative Negative - Positive [facility] pH, UA 7 5 - 9 [facility] codetagcar e Protein, UA Negative Negative - 2000(20) ++++ mg/dL [facility] Spec Grav, UA 1.01 1 - 1.03 [facility] Urobilinogen, UA 0.2 0.2 - 12 mg/dL [facility] Health[facility] e No Panel InformationOrdered By: Radiologist Radiology on 03-08-2025 [facility] [employer] [place] Work Phone: No Panel Informationon 03-08 Radiology Study observation (narrative) [facility] US OB ANATOMYon 03-08-2025 [place] [address] Ultrasound Report Signed Patient: VIMAL FUNES MR#: [id number] : 2000 Acct:[id number] Age/Sex: 24 / F ADM Date: 03/08/25 Loc: US Attending Dr: Jose Rodriguez D.O. Ordering Physician: Jose Rodriguez D.O. Date of Service: 03/08/25 Procedure(s): US OB anatomy Accession Number(s): [id number] cc: JENNIFER SEE ; Jose Rodriguez D.O. [place] [id number] Patient Name: VIMAL FUNES MRN: [id number] date: 2000 Sex: F Assigned Patient Location: US Current Patient Location: US Accession/Order Number: [id number] Exam Date: 03/08/2025 20:31 Report Date: 03/08/2025 [...] Knapp M.D. 03/08/2025 8:36 PM Dictation Location: [place] [address] Electronically authenticated by: [id number] Y Date: 03/08/2025 20:36 Dictated By: Shivam Knapp D.O. Signed By: 03/08/252037 DD/ 35 TD/TT: Entry Level Machine Operator: [facility] Radiology, Radiologist, MD - 03/08/2025 [place] [address] Ultrasound Report Signed Patient: VIMAL FUNES MR#: [id number] : 2000 Acct:[id number] Age/Sex: 24 / F ADM Date: 03/08/25 Loc: US Attending Dr: Jose Rodriguez D.O. Ordering Physician: Jose Rodriguez D.O. Date of Service: 03/08/25 Procedure(s): US OB anatomy Accession Number(s): [id number] cc: JENNIFER SEE ; Jose Rodriguez D.O. The [place] [id number] Patient Name: VIMAL FUNES MRN: [facility]:[id number] date: 2000 Sex: F Assigned Patient Location: US Current Patient Location: US Accession/Order Number: [id number] Exam Date: 03/08/2025 20:31 Report Date: 03/08/2025 [...] Knapp M.D. 03/08/2025 8:36 PM Dictation Location: [place] [address] Electronically authenticated by: [id number] Y Date: 03/08/2025 20:36 Dictated By: Shivam Knapp D.O. 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 Ordering Physician: Jose Rodriguez D.O. Date of Service: 03/08/25 Procedure(s): US OB cervical length Accession Number(s): [id number] cc: JENNIFER SEE ; Jose Rodriguez D.O. The [place] [address] Patient Name: VIMAL FUNES MRN: [facility]:[id number] date: 2000 Sex: F Assigned Patient Location: US Current Patient Location: Accession/Order Number: [id number] Exam Date: 03/08/2025 20:31 Report Date: 03/08/2025 [...] Knapp M.D. 03/08/2025 8:36 PM Dictation Location: [place] [address] Electronically authenticated by: [id number] Y Date: 03/08/2025 20:36 Dictated By: Shivam Knapp D.O. Signed By: 03/08/252037 DD/ 35 TD/TT: Entry Level Machine Operator: [facility] Radiology, Radiologist, - 03/08/[address] [address] Ultrasound Report Signed Patient: VIMAL FUNES MR#: [id number] : 2000 Acct:[id number] Age/Sex: 24 / F ADM Date: 03/08/25 Loc: US Attending Dr: Jose Rodriguez D.O. Ordering Physician: Jose Rodriguez D.O. Date of Service: 03/08/25 Procedure(s): US OB cervical length Accession Number(s): [id number] cc: JENNIFER SEE ; Jose Rodriguez D.O. [place] [id number] Patient Name: VIMAL FUNES MRN: [id number] date: 2000 Sex: F Assigned Patient Location: US Current Patient Location: US Accession/Order Number: [id number] Exam Date: 03/08/2025 20:31 Report Date: 03/08/2025 [...] Knapp M.D. 03/08/2025 8:36 PM Dictation Location: [facility] Electronically authenticated by: [id number] Y Date: 03/08/2025 20:36 Dictated By: Shivam Knapp D.O. Signed By: 03/08/252037 DD/ 35 TD/TT: Entry Level Machine Operator: [facility] IGP,APTIMA HPV,AGE GDLNon AGE GDLN ACOG TESTING Note . [facility] Comment on above: TESTS RESULT FLAG [facility] REF RANGE LAB Clinician Provided Cytology Information Source.............Endocervix No. of containers..01 ThinPrep Vial Age Algo ACOG Yris... FLAG LEGEND: L-Low Normal,H-High Normal,LL-Alert Low,HH-Alert High <-Panic Low,>-Panic High,A-Abnormal,AA-Critical Abnormal Performed at: 01 =G [address] [address] Jenise Byrne MD, IGP, RFX APTIMA HPV ASCU Note . [facility] Comment on above: TESTS RESULT FLAG [facility] REF RANGE LAB DIAGNOSIS: 02 NEGATIVE FOR INTRAEPITHELIAL LESION OR MALIGNANCY. Specimen adequacy: 02 Satisfactory for evaluation. Endocervical and/or squamous metaplastic cells (endocervical component) are present. Performed by: 02 Whitney Alvarez, News Production Assistant (ASCP) . 02 Note: Note 02 The [...] <-Panic Low,>-Panic High,A-Abnormal,AA-Critical Abnormal Performed at: [address] [address] Jenise Byrne MD, Performed at: = - [facility] [address] [id number] Orthotics Prosthetics Assistant: Jenise Byrne MD, Phone: [phone] Performed at: [facility] [address] [id number] Orthotics Prosthetics Assistant: Jenise Byrne MD, Phone: [phone] [facility] ENDOCERVIX [facility] e RECURRENT VAGINITIS (HTRX)on 02-22-2025 [facility] 0 [facility] V[facility]AE Not detected [facility] BVAB 2,3 (BACTERIAL VAGINOSIS ASSOCIATED BACTERIA 2, 3); MOBILUNCUS SPP 0 [facility] BVAB 2,3 (BACTERIAL VAGINOSIS ASSOCIATED BACTERIA 2, 3); MOBILUNCUS SPP Not detected [facility] SIMEON ALBICANS, PARAPSILOSIS, TROPICALIS 0 [facility] Healthcare SIMEON ALBICANS, PARAPSILOSIS, TROPICALIS Not detected [facility] SIMEON GLABRATA 0 [facility] SIMEON GLABRATA Not detected [facility] SIMEON KRUSEI 0 [facility] SIMEON KRUSEI Not detected [facility] CHLAMYDIA TRACHOMATIS 0 [facility] CHLAMYDIA TRACHOMATIS Not detected N [facility] GARDNERELLA VAGINALIS 0 [facility] GARDNERELLA VAGINALIS Not detected N [facility] MEGASPHAERA (TYPES 1, 2) 0 [facility] MEGASPHA[facility]A (TYPES 1, 2) Not detected [facility] MYCOPLASMA GENITALIUM 0 NOM S [facility] MYCOPLASMA GENITALIUM Not detected N [facility] NEISSERIA GONORRHOEAE 0 [facility] NEISSERIA GONORRHOEAE Not detected N [facility] TRICHOMONAS VAGINALIS 0 [facility] TRICHOMONAS VAGINALIS Not [facility] Urinalysis macro (dipstick) panel (U)on 02-20-2025 Bilirubin, UA Negative Negative - 4(70) +++ mg/dL [facility] Blood, UA Negative Negative - 50 Jason/mcL [facility] Clarity, UA Clear [facility] re Color, UA Yellow [facility] e Glucose, UA Negative Negative - 1999(110) ++++ mg/dL [facility] Interpretation and review of laboratory results Abnormal [facility] Ketones, UA Negative Negative - 160(16) ++++ mg/dL [facility] Leukocytes, UA Negative Negative - 500+++ Carlos/mcL [facility] Nitrite, UA Negative Negative - Positive [facility] pH, UA 7 5 - 9 [facility] Protein, UA Negative Negative - 1999(20) ++++ mg/dL [facility] Spec Grav, UA 1.01 1 - 1.03 [facility] Urobilinogen, UA 0.2 0.2 - 12 mg/dL [facility] Health[facility] e Unlisted Lab Teston 01-16-20 25 [facility] Urinalysis macro (dipstick) panel (U)on 01-14-2025 Bilirubin, UA Negative Negative - 4(70) +++ mg/dL [facility] Blood, UA Positive Negative - 50 Jason/mcL [facility] Comment on above: trace-intact Clarity, UA Clear [facility] Healthoh re Color, UA Yellow [facility] Health[facility] Glucose, UA Negative Negative - 1999(110) ++++ mg/dL [facility] Interpretation and review of laboratory results Abnormal [facility] Ketones, UA Negative Negative - 160(16) ++++ mg/dL [facility] Leukocytes, UA Negative Negative - 500+++ Carlos/mcL [facility] Nitrite, UA Negative Negative - Positive [facility] pH, UA 6 5 - 9 [facility] Protein, UA Negative Negative - 1999(20) ++++ mg/dL [facility] Spec Grav, UA 1.005 1 - 1.03 [facility] Urobilinogen, UA 0.2 0.2 - 12 mg/dL [facility] e Free Cell DNA (Non-Pro Medica Send Out)on 01-13-2025 [facility] ALL CBC WITH AUTO DIFFon BASOPHILS ABSOLUTE AUTO 0 [facility] Basophils/100 WBC (Bld) 0.4 % 0.2 - 2.0 % [facility] Eosinophils/100 WBC (Bld) 1.7 % 0.9 - 7.0 % [facility] Erythrocyte distribution width (RBC) [Ratio] 12.3 % 11.0 - 15.0 % [facility] Hematocrit (Bld) [Volume fraction] 42.5 % 36.0 - 48.0 % [facility] Hemoglobin (Bld) [Mass/Vol] 14.7 g/dL 12.0 - 16.0 g/dL [facility] IMMATURE GRANULOCYTES ABS AUTO 0.02 [facility] Immature granulocytes/100 WBC (Bld) 0.2 % 0.0 - 0.5 % [facility] Interpretation and review of laboratory results Abnormal [facility] LYMPHOCYTES ABSOLUTE AUTO 1.4 [facility] Lymphocytes/100 WBC (Bld) 15.4 % Low 20.5 - 60.0 % [facility] MCH (RBC) [Entitic mass] 31.6 pg 26.7 - 34.0 pg [facility] MCHC (RBC) [Mass/Vol] 34.6 g/dL 29.9 - 35.2 g/dL [facility] MCV (RBC) [Entitic vol] 91.4 fL 81.0 - 99.0 fL [facility] MONOCYTES ABSOLUTE AUTO 0.5 [facility] Monocytes/100 WBC (Bld) 5.4 % 1.7 - 12.0 % [facility] NEUTROPHILS ABSOLUTE AUTO 7 High [facility] Neutrophils/100 WBC (Bld) 76.9 % High 43.0 - 75.0 % [facility] Platelet mean volume (Bld) [Entitic vol] 10.1 fL 9.5 - 13.5 fL [facility] TBH EO # 0.2 [facility] PLT 216 [facility] Health[facility] e TB RBC 4.65 [facility] TBH WBC 9.2 [facility] Hemoglobin A1con 01-05-2025 HbA1c (Bld) [Mass fraction] 5 % 4.0 - 6.0 % [facility] No Panel Informationon 01-05 [facility] Healthcar e US OB TRANSVAGINALon 025 US [...] right ovary was not visualized. Electronically Signed:Praveen dominguez signed by RADHA POE II, MD, PHD at 14-Dec-2024 08:35:59 PM [facility] Normal Not Available Comment on above: Order Comment: US OB TRANSVAGINAL No LMP recorded. TBH PREG QUANT HCGon 025 HCG QUANTITATIVE 21401 mIU/mL [facility] Comment on above: 5-50 0.2-1 WEEK 50-500 1-2 WEEKS 100-5,000 2-3 WEEKS 500-10,000 3-4 WEEKS 1,000-50,000 4-5 WEEKS 10,000-100,000 5-6 WEEKS 15,000-200,000 6-8 WEEKS 10,000-100,000 2-3 MON[facility] TBH PREG QUANT HCGon 025 HCG QUANTITATIVE 6254 mIU/mL [facility] Comment on above: 5-50 0.2-1 WEEK 50-500 1-2 WEEKS 100-5,000 2-3 WEEKS 500-10,000 3-4 WEEKS 1,000-50,000 4-5 WEEKS 10,000-100,000 5-6 WEEKS 15,000-200,000 6-8 WEEKS 10,000-100,000 2-3 [facility] PREG QUANT HCGon 024 HCG QUANTITATIVE 6 mIU/mL [facility] Comment on above: 5-50 0.2-1 WEEK 50-500 1-2 WEEKS 100-5,000 2-3 WEEKS 500-10,000 3-4 WEEKS 1,000-50,000 4-5 WEEKS 10,000-100,000 5-6 WEEKS 15,000-200,000 6-8 WEEKS 10,000-100,000 2-3 [facility] ALL CBC WITH AUTO DIFFon BASOPHILS ABSOLUTE AUTO 0 [facility] Basophils/100 WBC (Bld) 0.5 % 0.2 - 2.0 % [facility] Eosinophils/100 WBC (Bld) 6.2 % 0.9 - 7.0 % [facility] Erythrocyte distribution width (RBC) [Ratio] 11.9 % 11.0 - 15.0 % [facility] Hematocrit (Bld) [Volume fraction] 43.8 % 36.0 - 48.0 % [facility] Hemoglobin (Bld) [Mass/Vol] 14.8 g/dL 12.0 - 16.0 g/dL [facility] IMMATURE GRANULOCYTES ABS AUTO 0.02 [facility] Immature granulocytes/100 WBC (Bld) 0.2 % 0.0 - 0.5 % [facility] LYMPHOCYTES ABSOLUTE AUTO 2 [facility] Lymphocytes/100 WBC (Bld) 22.1 % 20.5 - 60.0 % [facility] MCH (RBC) [Entitic mass] 31.7 pg 26.7 - 34.0 pg [facility] MCHC (RBC) [Mass/Vol] 33.8 g/dL 29.9 - 35.2 g/dL [facility] MCV (RBC) [Entitic vol] 93.8 fL 81.0 - 99.0 fL [facility] MONOCYTES ABSOLUTE AUTO 0.5 [facility] Monocytes/100 WBC (Bld) 5.3 % 1.7 - 12.0 % [facility] NEUTROPHILS ABSOLUTE AUTO 5.8 [facility] Neutrophils/100 WBC (Bld) 65.7 % 43.0 - 75.0 % [facility] Platelet mean volume (Bld) [Entitic vol] 10 fL 9.5 - 13.5 fL [facility] TBH EO # 0.6 [facility] TBH PLT 236 [facility] e TB[facility] RBC 4.67 [facility] WBC 8.9 [facility] [place] 08-10-2024 L Specimen: [id number] Received: 08/10/24 Status: CAROL Parker Num: [id number] Spec Type: Surgical Subm Dr: Jose Rodriguez Tissues: A Products of Conception - Spontaneous or Missed (CONTENTS OF CONCEPT Procedures: HE/2, Gross/Micro L4 Age/ Patient Sex Location Account Attending Physician Vimal Funes LABELL [id number] Jose Rodriguez SPEC NUM: [id number] RECD: 08/10/24 STATUS: CAROL PARKER NUM: [id number] CAROLIN: 08/10/[address] [facility] [address]: Jose Rodriguez ENTERED: 08/10/[address] [facility] [address]: Rafia,Lab SPEC TYPE: Surgical DEPT: MONICA ALTMAN ENTERED BY: [id number] RECV BY: [id number] ORDERED: HE/2, Gross/Micro L4 ORDERED: HE/2, Gross/Micro [...] villi and decidua. No tissue is identified. Primary Special Education Teacher sections of the chorionic villi are submitted in cassette A1 with medical representative sections of the decidua is submitted in cassette A2. (2, ss, [id number]) CPT Codes 28062 Specimen: [id number] Received: 08/10/24 Status: CAROL Parker Num: [id number] Spec Type: Surgical Subm Dr: Jose Rodriguez Tissues: A Products of Conception - Spontaneous or Missed (CONTENTS OF CONCEPT Procedures: HE/2, Gross/Agusto L4 Patient: Vimal Funes [id number] (Continued) Signed (signature on file) Josh Aragon MD 08/13/24 1647 Normal [facility] TBH PREG QUANT HCGon 024 HCG QUANTITATIVE 240 mIU/mL [facility] Comment on above: 5-50 0.2-1 WEEK 50-500 1-2 WEEKS 100-5,000 2-3 WEEKS 500-10,000 3-4 WEEKS 1,000-50,000 4-5 WEEKS 10,000-100,000 5-6 WEEKS 15,000-200,000 6-8 WEEKS 10,000-100,000 2-3 MONTHS [facility] CBC WITH AUTO DIFFon BASOPHILS ABSOLUTE AUTO 0.1 [facility] Basophils/100 WBC (Bld) 0.5 % 0.2 - 2.0 % [facility] Eosinophils/100 WBC (Bld) 2.8 % 0.9 - 7.0 % [facility] Erythrocyte distribution width (RBC) [Ratio] 11.9 % 11.0 - 15.0 % [facility] Hematocrit (Bld) [Volume fraction] 44.7 % 36.0 - 48.0 % [facility] Hemoglobin (Bld) [Mass/Vol] 15.3 g/dL 12.0 - 16.0 g/dL [facility] IMMATURE GRANULOCYTES ABS AUTO 0.03 [facility] Immature granulocytes/100 WBC (Bld) 0.3 % 0.0 - 0.5 % [facility] Interpretation and review of laboratory results Abnormal [facility] LYMPHOCYTES ABSOLUTE AUTO 1.6 [facility] Lymphocytes/100 WBC (Bld) 14.9 % Low 20.5 - 60.0 % [facility] MCH (RBC) [Entitic mass] 31.7 pg 26.7 - 34.0 pg [facility] MCHC (RBC) [Mass/Vol] 34.2 g/dL 29.9 - 35.2 g/dL [facility] MCV (RBC) [Entitic vol] 92.7 fL 81.0 - 99.0 fL [facility] MONOCYTES ABSOLUTE AUTO 0.4 [facility] Monocytes/100 WBC (Bld) 3.7 % 1.7 - 12.0 % [facility] NEUTROPHILS ABSOLUTE AUTO 8.2 High [facility] Neutrophils/100 WBC (Bld) 77.8 % High 43.0 - 75.0 % [facility] Platelet mean volume (Bld) [Entitic vol] 10 fL 9.5 - 13.5 fL [facility] TBH EO # 0.3 [facility] TB PLT 263 [facility] TB RBC 4.82 [facility] WBC 10.6 [facility] No Panel Informationon 07-21 [facility] DRUG SCREEN RAPID (URINE )on 07-21-2024 AMPHETAMINE SCREEN URINE Negative NEGATIVE [facility] BARBITURATES SCREEN URINE Negative NEGATIVE [facility] BENZODIAZEPINES SCREEN URINE Negative NEGATIVE [facility] BUPRENORPHINE SCREEN URINE Negative NEGATIVE [facility] Comment on above: DRUG CLASS [...] 300 ng/mL CANNABINOID SCREEN URINE Negative NEGATIVE [facility] COCAINE SCREEN URINE Negative NEGATIVE [facility] METHADONE SCREEN URINE Negative NEGATIVE NO [facility] METHAMPHETAMINES SCREEN URINE Negative NEGATIVE [facility] OPIATE SCREEN URINE Negative NEGATIVE [facility] OXYCODONE SCREEN URINE Negative NEGATIVE NO [facility] PHENCYCLIDINE SCREEN URINE Negative NEGATIVE [facility] TRICYCLIC ANTIDEPRESSANT URINE Negative NEGATIVE [facility] REEFLEX IF POSITIVE [facility] HCG ( test) Ql (U)o n 06-29-2024 Interpretation and review of laboratory results Abnormal [facility] Preg Test, Ur Positive [facility] Urinalysis macro (dipstick) panel (U)on 06-29-2024 Bilirubin, UA Negative Negative - 4(70) +++ mg/dL [facility] Blood, UA Negative Negative - 50 Jason/mcL [facility] Clarity, UA Clear [facility] re Color, UA Yellow [facility] Glucose, UA Negative Negative - 2000(110) ++++ mg/dL [facility] Interpretation and review of laboratory results Normal [facility] Ketones, UA Negative Negative - 160(16) ++++ mg/dL [facility] Leukocytes, UA Negative Negative - 500+++ Carlos/mcL [facility] Nitrite, UA Negative Negative - Positive [facility] pH, UA 7.0 5 - 9 [facility] Protein, UA Negative Negative - 2000(20) ++++ mg/dL [facility] Spec Grav, UA 1.015 1 - 1.03 [facility] care Urobilinogen, UA 0.2 0.2 - 12 mg/dL [facility] XR hand RT min 3V*on 023 XR hand RT min 3V* [facility] [employer] Other XR hand RT min 3V* [facility] [employer] Other XR hand RT min 3V* [address] [place] [address] [facility] Other XR hand RT min 3V* [place] [address] [facility] Other XR hand RT min 3V* XRay Report [facility] Other XR hand RT min 3V* Signed [facility] Other XR hand RT min 3V* Patient: Vimal Funes MR#: [id number] [facility] Other XR hand RT min 3V* 18 [facility] Other XR hand RT min 3V* : 2000 Acct:[id number] [facility] Other XR hand RT min 3V* Age/Sex: 22 / F ADM Date: 12/26/22 [facility] Other XR hand RT min 3V* Loc: XDUCLY Room: Type: [facility] Other XR hand RT min 3V* Attending Dr: Jennifer GIL [facility] Other XR hand RT min 3V* Copies to: JEFFERY Rodriguez [facility] Other XR hand RT min 3V* Ordering Provider: JEFFERY Rodriguez [facility] Other XR hand RT min 3V* Date of Service: 12/26/22 [facility] Other XR hand RT min 3V* XR/XR hand RT min 3V*: RIGHT HAND INJURY [facility] Other XR hand RT min 3V* RIGHT HAND - 4 views [facility] Other XR hand RT min 3V* REASON FOR EXAM: Patient had right thumb hyperextended yesterday when trying to open the door. Now [facility] Other XR hand RT min 3V* with pain. [facility] Other XR hand RT min 3V* COMPARISON: None [facility] Other XR hand RT min 3V* FINDINGS: [facility] Other XR hand RT min 3V* No focal soft tissue abnormality. There appears to be avulsion fracture involving the base of the [facility] Other XR hand RT min 3V* distal phalanx of the thumb. Joint spaces appear maintained. No bony erosions. [facility] Other XR hand RT min 3V* XR/XR hand RT min 3V* [facility] Other XR hand RT min 3V* IMPRESSION: [facility] Other XR hand RT min 3V* AVULSION FRACTURE INVOLVING THE BASE OF THE DISTAL PHALANX OF THE THUMB. [facility] Other XR hand RT min 3V* Impression dictated by: Bulmaro Arias Jr., D.O.12/26/2022 1:44 PM [facility] Other XR hand RT min 3V* Dictation Location: RADIO-PC-15 [facility] [employer] Other XR hand RT min 3V* Transcribed By: PWS 12/26/22 134[address] [place] [facility] Other XR hand RT min 3V* Dictated By: Bulmaro Arias Jr, DO 12/26/22 134[address] [place] [facility] [employer] Other XR hand RT min 3V* Signed By: [facility] Other XR hand RT min 3V* 12/26/22 1344 [facility] [employer] Other PAP ACOG PANEL 2: 22 to 30on 11-09-2022 . . Normal [facility] Comment on above: Performed By: #### [id number] ####[facility] [id number] [place] [address]DrGene Mancini Age Gdln ACOG Testing [facility] Comment on above: Performed By: #### [id number] ####[facility] [id number] [place] [address]DrGene Mancini DIAGNOSIS: Comment [facility] Comment on above: Result Comment: NEGA TIVE FOR INTRAEPITHELIAL LESION OR MALIGNANCY. Performed By: #### [id number] ####[facility] [address] [place] [address]DrGene Mancini Methodology: Comment [facility] Comment on above: Result Comment: This liquid based ThinPrep(R) pap test was screened with the use of an image guided system. Performed By: #### 4 [id number] ####[facility] [address] [place] [address]DrGene Mancini Note: Comment [facility] Comment on above: Result Comment: The Pap smear is a screening test designed to aid in the detection of premalignant and malignant conditions of the uterine cervix. It is not a diagnostic procedure and should not be used as the sole means of detecting cervical cancer. Both false-positive and false-negative reports do occur. . Performed By: #### [id number] ####[facility] [id number] [place] [address]Dr. Donis Mancini Performed by: Comment Normal [facility] Comment on above: Result Comment: Zuleima Lin Winder Operator (ASCP) Performed By: #### 4 [id number] ####[facility] [address] [place] [address]DrGene Mancini Reflex Criteria: Comment Normal [facility] Comment on above: Result Comment: The HPV DNA reflex criteria were not met with this specimen result therefore, no HPV testing was performed. . Performed By: #### 4 [id number] ####[facility] [id number] [address]DrGene Mancini Specimen adequacy: Comment Normal [facility] Comment on above: Result Comment: Sati sfactory for evaluation. Endocervical and/or squamous metaplastic cells (endocervical component) are present. Performed By: #### [id number] ####[facility] [id number] [place] [address]DrGene Mancini Cytology Cervical or vaginal smear or scraping studyOrdered By: Jael Nix on 11-02-2022 [facility] CBC AUTO DIFFon 08-11-2022 BASO # 0.0 103/ul Normal 0.0-0.1 [facility] Comment on above: Performed By: #### C T/NGNA #### [facility] [address] [place] [address] Dr. Donis Mancini Basophils/100 WBC (Bld) 0.2 % Normal 0.2-2.0 [facility] Comment on above: Performed By: #### C T/NGNA #### [facility] [address] [place] [address] Dr. Donis Mancini EO # 0.1 103/ul Normal 0.0-0.7 [facility] Comment on above: Performed By: #### C T/NGNA #### [facility] [address] [place] [address] Dr. Donis Mancini Eosinophils/100 WBC (Bld) 0.5 % Critically low 0.9-7.0 [facility] Comment on above: Performed By: #### C T/NGNA #### [facility] [address] [place] [address] Dr. Donis Mancini Erythrocyte distribution width (RBC) [Ratio] 12.5 % Normal 11.0-15.0 [facility] Comment on above: Performed By: #### C T/NGNA #### [facility] [address] [place] [address] Dr. Donis Mancini Hematocrit (Bld) [Volume fraction] 35.9 % Critically low 36.0-48.0 [facility] Comment on above: Performed By: #### C T/NGNA #### [facility] [address] [place] [address] Dr. Donis Mancini Hemoglobin (Bld) [Mass/Vol] 12.4 g/dL Normal 12.0-16.0 [facility] Comment on above: Result Comment: michelet ent delivered Performed By: #### C T/NGNA #### [facility] [address] [place] [address] Dr. Donis Mancini IG # 0.10 10e3/ul Critically high 0.00-0.03 The [facility] Comment on above: Performed By: #### C T/NGNA #### [facility] [address] [place] [address] Dr. Donis Mancini IG % 0.5 % Normal 0.0-0.5 [facility] Comment on above: Performed By: #### C T/NGNA #### [facility] [address] [place] [address] Dr. Donis Mancini LYMPH # 1.5 103/ul Normal 1.2-3.8 [facility] Comment on above: Performed By: #### C T/NGNA #### [facility] [address] [place] [address] Dr. Donis Mancini Lymphocytes/100 WBC (Bld) 7.6 % Critically low 20.5-60.0 [facility] Comment on above: Performed By: #### C T/NGNA #### [facility] [address] [place] [address] Dr. Donis Mancnii MANUAL DIFF REQ NO Normal [facility] Comment on above: Performed By: #### C T/NGNA #### [facility] [address] [place] [address] Dr. Donis Mancini MCH (RBC) [Entitic mass] 32.2 pg Normal 26.7-34.0 [facility] Comment on above: Performed By: #### C T/NGNA #### [facility] [address] [place] [address] Dr. Donis Mancini MCHC (RBC) [Mass/Vol] 34.5 g/dL Normal 29.9-35.2 [facility] Comment on above: Performed By: #### C T/NGNA #### [facility] [address] [place] [address] Dr. Donis Mancini MCV (RBC) [Entitic vol] 93.2 fL Normal 81.0-99.0 [facility] Comment on above: Performed By: #### C T/NGNA #### [facility] [address] [place] [address] Dr. Donis Mancini MONO # 1.3 103/ul Critically high 0.3-0.8 [facility] Comment on above: Performed By: #### C T/NGNA #### [facility] [address] [place] [address] Dr. Donis Mancini Monocytes/100 WBC (Bld) 6.8 % Normal 1.7-12.0 [facility] Comment on above: Performed By: #### C T/NGNA #### [facility] [address] [place] [address] Dr. Donis Mancini NEUT # 16.2 103/ul Critically high 1.4-6.5 The [facility] Comment on above: Performed By: #### C T/NGNA #### [facility] [address] [place] [address] Dr. Donis Mancini Neutrophils/100 WBC (Bld) 84.4 % Critically high 43.0-75.0 [facility] Comment on above: Performed By: #### C T/NGNA #### [facility] [address] [address] [address] Donis Mancini Platelet mean volume (Bld) [Entitic vol] 11.8 fL Normal 9.5-13.5 [facility] Comment on above: Performed By: #### C T/NGNA #### [facility] [address] [address] [address] Donis Mancini PLT 156 103/ul Normal 150-450 [facility] Comment on above: Performed By: #### C T/NGNA #### [facility] [address] [address] [address] Donis Mancini RBC 3.85 106/ul Critically low 4.20-5.40 [facility] Comment on above: Performed By: #### C T/NGNA #### [facility] [address] [address] [address] Donis Mancini WBC 19.2 103/ul Critically high 4.0-11.0 [facility] Comment on above: Performed By: #### C T/NGNA #### [facility] [address] [address] [address] Donis Mancini Covid-19 PCR ([facility])on 07-27 SARS-CoV-2 (COVID-19) RNA INESSA+probe Ql (Unsp spec) Not detected Normal NOT DETECTED The [facility] Comment on above: Result Comment: When diagnostic [...] for this test is supported by the Emergency Detail Driver of Health and Human Service's declaration that [...] be used). Performed By: #### C VDTBH ####[facility] [address] [place], [place] [address]Dr. Donis Mancini DRUG SCREEN RAPID (URINE)on 08-10-2022 AMP Negative Normal NEGATIVE The [facility] Comment on above: Performed By: #### D RUGRPD ####[facility] [address] [place], [place] [address]Dr. Laceyjavi Mancini BAR Negative Normal NEGATIVE The [facility] Comment on above: Performed By: #### D RUGRPD ####[facility] [address] [place], [place] [address]Dr. Donis [facility] BUP Negative Normal NEGATIVE The [facility] Comment on above: Performed By: #### D RUGRPD ####[facility] [address] [place], [place] [address]Dr. Donis Mancini BZO Negative Normal NEGATIVE The [facility] Comment on above: Performed By: #### D RUGRPD ####[facility] [address] [place], [place] [address]Dr. Donis Mancini ALEXA Negative Normal NEGATIVE The [facility] Comment on above: Performed By: #### D RUGRPD ####[facility] [address] [place], [place] [address]Dr. Donis [facility] CUT-OFFS SEE BELOW Normal [facility] Comment on above: Result Comment: AMP (Amphetamine): 500ng/mL, BAR (Barbituates): 200 ng/mL, BZO (Benzodiazepines): 150 ng/mL, BUP (Buprenorphine): 10 ng/mL, ALEXA (Cocaine): 150 ng/mL, mAMP (Methamphetamine): 500 ng/mL, MTD (Methadone): 200 ng/mL, OPI (Opiates): 100 ng/mL, OXY (Oxycodone): 100 ng/mL, PCP (Phencyclidine): 25 ng/mL, PPX (Propoxyphene): 300 ng/mL, THC (Cannabinoids): 50 ng/mL, TCA (Trycyclic Antidepressants): 300 ng/mL Performed By: #### D RUGRPD ####[facility] [address] [place] [id number]. Donis Mancini DRUG CUT HEADER DRUG CLASS TEST SYSTEM CUT-OFF CONCENTRATIONS ARE FOLLOWS: Normal The [facility] Comment on above: Performed By: #### D RUGRPD ####[facility] [address] [id number]. Yijavi Mancini mAMP Negative Normal NEGATIVE The [facility] Comment on above: Performed By: #### D RUGRPD ####[facility] [address] [place] [address]Dr. Yilan Mancini MTD Negative Normal NEGATIVE The [facility] Comment on above: Performed By: #### D RUGRPD ####[facility] [address] [place], [place] [address]Dr. Yilan Mancini OPI Negative Normal NEGATIVE The [facility] Comment on above: Performed By: #### D RUGRPD ####[facility] [address] [place], [place] [address]Dr. Yilan Mancini OXY Negative Normal NEGATIVE The [facility] Comment on above: Performed By: #### D RUGRPD ####[facility] [address] [place], [place] [address]Dr. Yilan Mancini PCP Negative Normal NEGATIVE The [facility] Comment on above: Performed By: #### D RUGRPD ####[facility] [address] [place], [place] [address]Dr. Yilan Mancini PPX Negative Normal NEGATIVE The [facility] Comment on above: Performed By: #### D RUGRPD ####[facility] [address] [place] [address]Dr. Yilan Mancini TCA Negative Normal NEGATIVE The [facility] Comment on above: Performed By: #### D RUGRPD ####[facility] [address] [place], [place] [address]Dr. Yilan Mancini THC Negative Normal NEGATIVE The [facility] Comment on above: Performed By: #### D RUGRPD ####[facility] [address] [place], [place] [address]Dr. Donis Mancini TYPE AND SCREENon 08-10-2022 TYPE AND SCREEN Negative Normal [facility] Comment on above: Performed By: #### T NS ####[facility] [address] [place], [place] [address]DpGene Mancini US PREG BIOPHY W NON STRESSo [...] ESTEFANY BENNETT Date: 2022-08-10 07:18 Normal The [facility] US PREG GROWTHon 08-10-2022 US PREG GROWTH [...] ESTEFANY BENNETT Date: 2022-08-10 07:16 Normal The [facility] CBC AUTO DIFFon 08-09-2022 BASO # 0.0 103/ul Normal 0.0-0.1 The [facility] Comment on above: Performed By: #### C BC ####[facility] [address] [place] [id number]. Donis Mancini Basophils/100 WBC (Bld) 0.2 % Normal 0.2-2.0 [facility] Comment on above: Performed By: #### C BC ####[facility] [address] [place], [place] [address]Dr. Donis Mancini EO # 0.4 103/ul Normal 0.0-0.7 The [facility] Comment on above: Performed By: #### C BC ####[facility] [address] [place], [place] [address]Dr. Donis Mancini Eosinophils/100 WBC (Bld) 2.8 % Normal 0.9-7.0 [facility] Comment on above: Performed By: #### C BC ####[facility] [address] [place], [place] [address]Dr. Donis Mancini Erythrocyte distribution width (RBC) [Ratio] 12.2 % Normal 11.0-15.0 [facility] Comment on above: Performed By: #### C BC ####[facility] [address] [place], [place] [address]Dr. Donis Mancini Hematocrit (Bld) [Volume fraction] 41.4 % Normal 36.0-48.0 [facility] Comment on above: Performed By: #### C BC ####[facility] [address] [place], [place] [id number]. Donis Mancini Hemoglobin (Bld) [Mass/Vol] 14.4 g/dL Normal 12.0-16.0 [facility] Comment on above: Performed By: #### C BC ####[facility] [address] [place], [place] [address]Dr. Donis Mancini IG # 0.06 10e3/ul Critically high 0.00-0.03 [facility] Comment on above: Performed By: #### C BC ####[facility] [address] [place], [place] [address]Dr. Donis Mancini IG % 0.5 % Normal 0.0-0.5 The [facility] Comment on above: Performed By: #### C BC ####[facility] [address] [place] [address]Dr. Donis Live LYMPH # 1.5 103/ul Normal 1.2-3.8 The [facility] Comment on above: Performed By: #### C BC ####[facility] [address] [place] [address]Dr. Donis Mancini Lymphocytes/100 WBC (Bld) 11.7 % Critically low 20.5-60.0 [facility] Comment on above: Performed By: #### C BC ####[facility] [address] [place] [id number]. Donis Mancini MANUAL DIFF REQ NO Normal [facility] Comment on above: Performed By: #### C BC ####[facility] [address] [place] [address]Dr. Donis Mancini MCH (RBC) [Entitic mass] 31.9 pg Normal 26.7-34.0 [facility] Comment on above: Performed By: #### C BC ####[facility] [address] [place] [address]Dr. Donis Mancini MCHC (RBC) [Mass/Vol] 34.8 g/dL Normal 29.9-35.2 The [facility] Comment on above: Performed By: #### C BC ####[facility] [address] [place] [address]Dr. Donis Mancini MCV (RBC) [Entitic vol] 91.8 fL Normal 81.0-99.0 The [facility] Comment on above: Performed By: #### C BC ####[facility] [address] [place] [address]Dr. Donis Mancini MONO # 1.0 103/ul Critically high 0.3-0.8 [facility] Comment on above: Performed By: #### C BC ####[facility] [address] [place] [address]Dr. Donis Mancini Monocytes/100 WBC (Bld) 7.5 % Normal 1.7-12.0 [facility] Comment on above: Performed By: #### C BC ####[facility] [address] [place], [place] [address]Cp. Donis Mancini NEUT # 10.0 103/ul Critically high 1.4-6.5 [facility] Comment on above: Performed By: #### C BC ####[facility] [address] [place] [address]Dr. Laceyjavi Live Neutrophils/100 WBC (Bld) 77.3 % Critically high 43.0-75.0 [facility] Comment on above: Performed By: #### C BC ####[facility] [address] [place] [id number] Mancini Platelet mean volume (Bld) [Entitic vol] 11.6 fL Normal 9.5-13.5 [facility] Comment on above: Performed By: #### C BC ####[facility] [address] [place] [address]Dr. Donis Mancini PLT 184 103/ul Normal 150-450 [facility] Comment on above: Performed By: #### C BC ####[facility] [address] [place] [address]Dr. Donis Mancini RBC 4.51 106/ul Normal 4.20-5.40 The [facility] Comment on above: Performed By: #### C BC ####[facility] [address] [place] [address]Dr. Laceyjavi Mancini WBC 12.9 103/ul Critically high 4.0-11.0 The [facility] Comment on above: Performed By: #### C BC ####[facility] [address] [place] [id number] Donis Live LDHon 08-09-2022 LDH 167 U/L Normal 81-234 [facility] Comment on above: Performed By: #### C T/NGNA #### [facility] [address] [place], [place] [address] Dr. Donis Mancini PROF 14(COMP METB)on 022 Albumin [Mass/Vol] 2.7 g/dL Critically low 3.4-5.0 [facility] Comment on above: Performed By: #### C T/NGNA #### [facility] [address] [address] [address] Donis Mancini Albumin/Globulin [Mass ratio] 0.6 {ratio} Normal [facility] Comment on above: Performed By: #### C T/NGNA #### [facility] [address] [address] [address] Donis Mancini ALP [Catalytic activity/Vol] 176 U/L Critically high 46-116 [facility] Comment on above: Performed By: #### C T/NGNA #### [facility] [address] [address] [address] Donis Mancini ALT [Catalytic activity/Vol] 20 U/L Normal 14-59 [facility] Comment on above: Performed By: #### C T/NGNA #### [facility] [address] [address] [address] Donis Mancini Anion gap [Moles/Vol] 12.9 mmol/L Normal [facility] Comment on above: Performed By: #### C T/NGNA #### [facility] [address] [address] [address] Donis Mancini AST [Catalytic activity/Vol] 20 U/L Normal 15-37 [facility] Comment on above: Performed By: #### C T/NGNA #### [facility] [address] [address] [address] Donis Mancini Bilirubin [Mass/Vol] 0.1 mg/dL Critically low 0.2-1.0 [facility] Comment on above: Performed By: #### C T/NGNA #### [facility] [address] [address] [address] Donis Mancini Calcium [Mass/Vol] 9.1 mg/dL Normal 8.5-10.1 [facility] Comment on above: Performed By: #### C T/NGNA #### [facility] [address] [address] [address] Donis Mancini Chloride [Moles/Vol] 104 mmol/L Normal 98-107 [facility] Comment on above: Performed By: #### C T/NGNA #### [facility] [address] [address] [address] Donis Mancini CO2 [Moles/Vol] 22.9 mmol/L Normal 21.0-32.0 [facility] Comment on above: Performed By: #### C T/NGNA #### [facility] [address] [address] [address] Donis Mancini Creatinine [Mass/Vol] 0.43 mg/dL Critically low 0.55-1.02 [facility] Comment on above: Performed By: #### C T/NGNA #### [facility] [address] [address] [address] Donis Mancini EGFR-AF EGYPTIAN >60 Normal >=60 [facility] Comment on above: Performed By: #### C T/NGNA #### [facility] [address] [address] [address] Donis Mancini EGFR-NON AF EGYPTIAN >60 Normal >=60 [facility] Comment on above: Performed By: #### C T/NGNA #### [facility] [address] [address] [address] Donis Mancini Globulin (S) [Mass/Vol] 4.2 g/dL Normal [facility] Comment on above: Performed By: #### C T/NGNA #### [facility] [address] [address] [address] Donis Mancini Glucose [Mass/Vol] 95 mg/dL Normal 74-106 [facility] Comment on above: Performed By: #### C T/NGNA #### [facility] [address] [address] [address] Donis Mancini Potassium [Moles/Vol] 3.8 mmol/L Normal 3.5-5.1 [facility] Comment on above: Performed By: #### C T/NGNA #### [facility] [address] [address] [address] Donis Mancini Protein [Mass/Vol] 6.9 g/dL Normal 6.4-8.2 [facility] Comment on above: Performed By: #### C T/NGNA #### [facility] [address] [place] [address] Dr. Donis Mancini Sodium [Moles/Vol] 136 mmol/L Normal 136-145 [facility] Comment on above: Performed By: #### C T/NGNA #### [facility] [address] [place] [address] Dr. Donis Mancini Urea nitrogen [Mass/Vol] 10.0 mg/dL Normal 7.0-18.0 [facility] Comment on above: Performed By: #### C T/NGNA #### [facility] [address] [place] [address] Dr. Donis Mancini Urea nitrogen/Creatinine [Mass ratio] 23.3 mg/mg Normal [facility] Comment on above: Performed By: #### C T/NGNA #### [facility] [address] [place] [address] Dr. Donis Mancini URIC ACID SERUMon 08-09-2022 Urate [Mass/Vol] 3.6 mg/dL Normal 2.6-6.0 [facility] Comment on above: Performed By: #### C T/NGNA #### [facility] [address] [place] [address] Dr. Donis Mancini CBC AUTO DIFFon 08-07-2022 BASO # 0.0 103/ul Normal 0.0-0.1 [facility] Comment on above: Performed By: #### U AMIC #### [facility] [address] [place] [address] Dr. Donis Mancini Basophils/100 WBC (Bld) 0.2 % Normal 0.2-2.0 [facility] Comment on above: Performed By: #### U AMIC #### [facility] [address] [place] [address] Dr. Donis Mancini EO # 0.2 103/ul Normal 0.0-0.7 [facility] Comment on above: Performed By: #### U AMIC #### [facility] [address] [place] [address] Dr. Donis Mancini Eosinophils/100 WBC (Bld) 1.8 % Normal 0.9-7.0 [facility] Comment on above: Performed By: #### U AMIC #### [facility] [address] [place] [address] Dr. Donis Mancini Erythrocyte distribution width (RBC) [Ratio] 12.3 % Normal 11.0-15.0 [facility] Comment on above: Performed By: #### U AMIC #### [facility] [address] [place] [address] Dr. Donis Mancini Hematocrit (Bld) [Volume fraction] 45.7 % Normal 36.0-48.0 [facility] Comment on above: Performed By: #### U AMIC #### [facility] [address] [place] [address] Dr. Donis Mancini Hemoglobin (Bld) [Mass/Vol] 16.0 g/dL Normal 12.0-16.0 [facility] Comment on above: Performed By: #### U AMIC #### [facility] [address] [place] [address] Dr. Donis Mancini IG # 0.07 10e3/ul Critically high 0.00-0.03 [facility] Comment on above: Performed By: #### U AMIC #### [facility] [address] [place] [address] Dr. Donis Mancini IG % 0.5 % Normal 0.0-0.5 [facility] Comment on above: Performed By: #### U AMIC #### [facility] [address] [place] [address] Dr. Donis Mancini LYMPH # 1.5 103/ul Normal 1.2-3.8 [facility] Comment on above: Performed By: #### U AMIC #### [facility] [address] [place] [address] Dr. Donis Mancini Lymphocytes/100 WBC (Bld) 11.2 % Critically low 20.5-60.0 [facility] Comment on above: Performed By: #### U AMIC #### [facility] [address] [address] [address] Donis Mancini MANUAL DIFF REQ NO Normal [facility] Comment on above: Performed By: #### U AMIC #### [facility] [address] [address] [address] Donis Mancini MCH (RBC) [Entitic mass] 32.0 pg Normal 26.7-34.0 [facility] Comment on above: Performed By: #### U AMIC #### [facility] [address] [address] [address] Donis Mancini MCHC (RBC) [Mass/Vol] 35.0 g/dL Normal 29.9-35.2 [facility] Comment on above: Performed By: #### U AMIC #### [facility] [address] [place] [address] Dr. Donis Mancini MCV (RBC) [Entitic vol] 91.4 fL Normal 81.0-99.0 [facility] Comment on above: Performed By: #### U AMIC #### [facility] [address] [place] [address] Dr. Donis Mancini MONO # 0.9 103/ul Critically high 0.3-0.8 [facility] Comment on above: Performed By: #### U AMIC #### [facility] [address] [place] [address] Dr. Donis Mnacini Monocytes/100 WBC (Bld) 6.3 % Normal 1.7-12.0 [facility] Comment on above: Performed By: #### U AMIC #### [facility] [address] [address] [address] Donis Mancini NEUT # 10.9 103/ul Critically high 1.4-6.5 The [facility] Comment on above: Performed By: #### U AMIC #### [facility] [address] [place] [address] Dr. Donis Mancini Neutrophils/100 WBC (Bld) 80.0 % Critically high 43.0-75.0 The [facility] Comment on above: Performed By: #### U AMIC #### [facility] [address] [place], [place] [address] Dr. Donis Mancini Platelet mean volume (Bld) [Entitic vol] 11.5 fL Normal 9.5-13.5 [facility] Comment on above: Performed By: #### U AMIC #### [facility] [id number] Donis Mancini PLT 182 103/ul Normal 150-450 [facility] Comment on above: Performed By: #### U AMIC #### [facility] [address] [address] [address] Donis Mancini RBC 5.00 106/ul Normal 4.20-5.40 [facility] Comment on above: Performed By: #### U AMIC #### [facility] [address] [address] [address] Donis Mancini WBC 13.6 103/ul Critically high 4.0-11.0 [facility] Comment on above: Performed By: #### U AMIC #### [facility] [address] [address] [address] Donis Mancini LDHon 08-07-2022 LDH 171 U/L Normal 81-234 [facility] Comment on above: Performed By: #### C MP, URIC, LDH ####[facility] [address] [id number]. Donis Mancini PROF 14(COMP METB)on 022 Albumin [Mass/Vol] 2.9 g/dL Critically low 3.4-5.0 [facility] Comment on above: Performed By: #### C MP, URIC, LDH ####[facility] [address] [id number]. Donis Mancini Albumin/Globulin [Mass ratio] 0.6 {ratio} Normal [facility] Comment on above: Performed By: #### C MP, URIC, LDH ####[facility] [address] [id number]. Donis Mancini ALP [Catalytic activity/Vol] 192 U/L Critically high 46-116 [facility] Comment on above: Performed By: #### C MP, URIC, LDH ####[facility] [address] [address]Dr. Donis Mancini ALT [Catalytic activity/Vol] 23 U/L Normal 14-59 [facility] Comment on above: Performed By: #### C MP, URIC, LDH ####[facility] [address] [address]Dr. Donis Mancini Anion gap [Moles/Vol] 14.4 mmol/L Normal Th [facility] Comment on above: Performed By: #### C MP, URIC, LDH ####[facility] [address] [address]Dr. Donis Mancini AST [Catalytic activity/Vol] 23 U/L Normal 15-37 [facility] Comment on above: Performed By: #### C MP, URIC, LDH ####[facility] [address] [place], [place] [address]Dr. Donis Mancini Bilirubin [Mass/Vol] 0.2 mg/dL Normal 0.2-1.0 [facility] Comment on above: Performed By: #### C MP, URIC, LDH ####[facility] Z[address] [place], [place] [address]Dr. Laceyjavi Mancini Calcium [Mass/Vol] 9.4 mg/dL Normal 8.5-10.1 [facility] Comment on above: Performed By: #### C MP, URIC, LDH ####[facility] [address] [place], [place] [address]Dr. Donis Mancini Chloride [Moles/Vol] 104 mmol/L Normal 98-107 [facility] Comment on above: Performed By: #### C MP, URIC, LDH ####[facility] [address] [place], [place] [address]Dr. Donis Mancini CO2 [Moles/Vol] 21.7 mmol/L Normal 21.0-32.0 [facility] Comment on above: Performed By: #### C MP, URIC, LDH ####[facility] O[address] [place], [place] [address]Dr. Donis Mancini Creatinine [Mass/Vol] 0.46 mg/dL Critically low 0.55-1.02 [facility] Comment on above: Performed By: #### C MP, URIC, LDH ####[facility] [address] [address]Dr. Donis Mancini EGFR-AF EGYPTIAN >60 Normal >=60 [facility] Comment on above: Performed By: #### C MP, URIC, LDH ####[facility] [address] [address]Dr. Donis Mancini EGFR-NON AF EGYPTIAN >60 Normal >=60 [facility] Comment on above: Performed By: #### C MP, URIC, LDH ####[facility] [address] [address]Dr. Donis Mancini Globulin (S) [Mass/Vol] 4.6 g/dL Normal [facility] Comment on above: Performed By: #### C MP, URIC, LDH ####[facility] [address] [address]Dr. Donis Mancini Glucose [Mass/Vol] 89 mg/dL Normal 74-106 [facility] Comment on above: Performed By: #### C MP, URIC, LDH ####[facility] Cut[address]ce[address] [place], [place] [address]Dr. Donis Mancini Potassium [Moles/Vol] 4.1 mmol/L Normal 3.5-5.1 [facility] Comment on above: Performed By: #### C MP, URIC, LDH ####[facility] [address] [address]Dr. Donis Mancini Protein [Mass/Vol] 7.5 g/dL Normal 6.4-8.2 The [facility] Comment on above: Performed By: #### C MP, URIC, LDH ####[facility] [address] [place], [place] [address]Dr. Donis Mancini Sodium [Moles/Vol] 136 mmol/L Normal 136-145 [facility] Comment on above: Performed By: #### C MP, URIC, LDH ####[facility] [address] [id number]. Donis Mancini Urea nitrogen [Mass/Vol] 8.0 mg/dL Normal 7.0-18.0 [facility] Comment on above: Performed By: #### C MP, URIC, LDH ####[facility] [address] [place], [place] [address]NmDr. Donis Mancini Urea nitrogen/Creatinine [Mass ratio] 17.4 mg/mg Normal The [facility] Comment on above: Performed By: #### C MP, URIC, LDH ####[facility] [address] [id number]. Donis Mancini PROTIMEon 08-07-2022 INR Coag (PPP) [Relative time] {INR} Normal The [facility] Comment on above: Performed By: #### U AMIC #### [facility] [address] [place] [address] Dr. Donis Mancini INR GUIDELINES SEE BELOW Normal The [place] [facility] Comment on above: Result Comment: NICCI RED INR: 2.0 - 3.0 CONDITIONS NOT LISTED BELOW 2.5 - 3.5 FOR PROSTHETIC HEART VALVE REPLACEMENT 2.5 - 3.5 RECURRENT THROMBOSIS Performed By: #### U AMIC #### [facility] [address] [place] [address] Dr. Donis Mancini PT Coag (PPP) [Time] 9.8 s Normal 9.0-11.6 [facility] Comment on above: Performed By: #### U AMIC #### [facility] [address] [place] [address] Dr. Donis Mancini PTTon 08-07-2022 aPTT Coag (Bld) [Time] 28.5 s Normal 22.3-36.2 Th [facility] Comment on above: Performed By: #### U AMIC #### [facility] [address] [place] [address] Dr. Donis Mancini UA (CLEAN/CATCH) COVER ASSEMBLER/MICRO I F IND.on 08-07-2022 Bilirubin Ql (U) Negative Normal NEGATIVE [facility] Comment on above: Performed By: #### U AMIC #### [facility] [address] [address] [address] Donis Mancini Clarity (U) CLEAR Normal CLEAR [facility] Comment on above: Performed By: #### U AMIC #### [facility] [address] [address] [address] Donis Mancini Color (U) LT. YELLOW Normal YELLOW [facility] Comment on above: Performed By: #### U AMIC #### [facility] [address] [address] [address] Donis Mancini Glucose Ql (U) Negative Normal NEGATIVE [facility] Comment on above: Performed By: #### U AMIC #### [facility] [address] [place] [address] Dr. Donis Mancini Hemoglobin Ql (U) Negative Normal NEGATIVE [facility] Comment on above: Performed By: #### U AMIC #### [facility] [address] [place] [address] Dr. Donis Mancini Ketones Ql (U) Negative Normal NEGATIVE [facility] Comment on above: Performed By: #### U AMIC #### [facility] [address] [place] [address] Dr. Donis Mancini LEUKOCYTES Negative Normal NEGATIVE [facility] Comment on above: Performed By: #### U AMIC #### [facility] [address] [place] [address] Dr. Donis Mancini Nitrite Ql (U) Negative Normal NEGATIVE [facility] Comment on above: Performed By: #### U AMIC #### [facility] [address] [place] [address] Dr. Donis Mancini pH (U) 7.0 [pH] Normal 5-9 [facility] Comment on above: Performed By: #### U AMIC #### [facility] [address] [place] [address] Dr. Donis Mancini SPEC GRAVITY <=1.005 Abnormal 1.005-<=1.02 5 [facility] Comment on above: Performed By: #### U AMIC #### [facility] [address] [place] [address] Dr. Donis Mancini UA PROTEIN Negative Normal NEGATIVE/ TRACE The [facility] Comment on above: Performed By: #### U AMIC #### [facility] [address] [address] [address] Donis Mancini UR MICRO IND NOT INDICATED Normal [facility] Comment on above: Performed By: #### U AMIC #### [facility] [address] [address] [address] Donis Mancini Urobilinogen Qn (U) 0.2 {Sarah'U}/dL Normal 0.2 - 1. 0 [facility] Comment on above: Performed By: #### U AMIC #### [facility] [address] [address] [address] Donis Mancini URIC ACID SERUMon 08-07-2022 Urate [Mass/Vol] 3.8 mg/dL Normal 2.6-6.0 [facility] Comment on above: Performed By: #### C MP, URIC, LDH ####[facility] [address] [address]Dr. Donis Mancini URINE T PROTEIN CREAT RATIOo n 08-07-2022 UR TOTAL PROTEIN <6.0 Normal <=12.0 [facility] Comment on above: Performed By: #### C T/NGNA #### [facility] [address] [address] [address] Donis Mancini URINE CREAT 13.45 mg/dL Critically low 20.00-300.00 [facility] Comment on above: Performed By: #### C T/NGNA #### [facility] [address] [address] [address] Donis Mancini US PREG BIOPHY W [...] COCO STERN Date: 2022-08-01 08:31 Normal [facility] CHLAMYDIA/GONOCOCCUS INESSA (SW AB/URINE/PAPon 07-31-2022 Chlamydia trachomatis, INESSA Negative Normal Negative [facility] Comment on above: Performed By: #### C T/NGNA #### [facility] [address] [address] [address] Donis Mancini Neisseria gonorrhoeae, INESSA Negative Normal Negative [facility] Comment on above: Performed By: #### C T/NGNA #### [facility] [address] [address] [address] Donis Mancini VAGINITIS/VAGINOSIS DNA PROB Domenic 07-31-2022 Simeon species Negative Normal Negative [facility] Comment on above: Performed By: #### V AGINT ####[facility] [address] [address]Dr. Donis Mancini Gardnerella vaginalis Negative Normal Negative [facility] Comment on above: Performed By: #### V AGINT ####[facility] [address] [address]Dr. Donis Mancini Trichomonas vaginalis Negative Normal Negative [facility] Comment on above: Performed By: #### V AGINT ####[facility] [address] [address]Dr. Donis Mancini GROUP B STREP CULTUREon S. agalactiae Ag Ql (Unsp spec) Culture Observations: NEGATIVE FOR GROUP B STREPTOCOCCUS. Normal The [facility] Comment on above: Performed By: #### G BSCX #### [facility] [address] [place] [address] Dr. Donis Mancini US PREG BIOPHY W [...] COCO STERN Date: 2022-07-25 09:41 Normal The [facility] US PREG GROWTHon 07-11-2022 US PREG GROWTH [...] ESTEFANY BENNETT Date: 2022-07-11 19:28 Normal [facility] Covid-19 PCR (CVDTB)on 06-26 SARS-CoV-2 (COVID-19) RNA INESSA+probe Ql (Unsp spec) Not detected Normal NOT DETECTED The [facility] Comment on above: Result Comment: When diagnostic [...] for this test is supported by the Emergency Detail Driver of Health and Human Service's declaration that [...] used). Performed By: #### C T/NGNA #### [facility] [address] [place] [address] Dr. Donis Mancini GTT 3 HR PREGon 06-03-2022 Glucose [Mass/Vol] 94 mg/dL Normal 74-106 [facility] Comment on above: Performed By: #### U AMIC #### [facility] [address] [place] [address] Dr. Donis Mancini Glucose [Mass/Vol] 147 mg/dL Normal [facility] Comment on above: Performed By: #### U AMIC #### [facility] [address] [place] [address] Dr. Donis Mancini Glucose [Mass/Vol] 159 mg/dL Normal [facility] Comment on above: Performed By: #### U AMIC #### [facility] [address] [place] [address] Dr. Donis Mancini Glucose [Mass/Vol] 151 mg/dL Normal [facility] Comment on above: Performed By: #### U AMIC #### [facility] [address] [place] [address] Dr. Donis Mancini GLUCOSE - 1HRon 05-21-2022 Glucose [Mass/Vol] 141 mg/dL Critically high 74-106 [facility] Comment on above: Performed By: #### U AMIC #### [facility] [address] [place] [address] Dr. Donis Mancini HEMOGRAM AND PLATELon 05-21 Hematocrit (Bld) [Volume fraction] 39.1 % Normal 36.0-48.0 [facility] Comment on above: Performed By: #### U AMIC #### [facility] [address] [place] [address] Dr. Donis Mancini Hemoglobin (Bld) [Mass/Vol] 13.1 g/dL Normal 12.0-16.0 [facility] Comment on above: Performed By: #### U AMIC #### [facility] [address] [place] [address] Dr. Donis Mancini MCH (RBC) [Entitic mass] 32.3 pg Normal 26.7-34.0 [facility] Comment on above: Performed By: #### U AMIC #### [facility] [address] [place] [address] Dr. Donis Mancini MCHC (RBC) [Mass/Vol] 33.5 g/dL Normal 29.9-35.2 [facility] Comment on above: Performed By: #### U AMIC #### [facility] [address] [place] [address] Dr. Donis Mancini MCV (RBC) [Entitic vol] 96.5 fL Normal 81.0-99.0 [facility] Comment on above: Performed By: #### U AMIC #### [facility] [address] [place] [address] Dr. Donis Mancini PLT 220 103/ul Normal 150-450 [facility] Comment on above: Performed By: #### U AMIC #### [facility] [address] [place] [address] Dr. Donis Mancini RBC 4.05 106/ul Critically low 4.20-5.40 [facility] Comment on above: Performed By: #### U AMIC #### [facility] [address] [place] [address] Dr. Donis Mancini WBC 12.8 103/ul Critically high 4.0-11.0 [facility] Comment on above: Performed By: #### U AMIC #### [facility] [address] [place] [address] Dr. Donis Mancini US PREG BIOPHYSICAL NO [...] ESTEFANY BENNETT Date: 2022-05-11 06:25 Normal The [facility] CULTURE URINEon 05-10-2022 CULTURE URINE Culture Observations: MODERATE GROWTH OF MIXED GENITAL RAMBO. NO POTENTIAL PATHOGENS SEEN. Normal The [facility] Comment on above: Performed By: #### U RCX #### [facility] [address] [address] [address] Donis Mancini UA RANDOM W/MICROSCOPICon BACTERIA LARGE Abnormal NONE SEEN The [facility] Comment on above: Performed By: #### U AMIC ####[facility] [address] [address]Dr. Donis Mancini Bilirubin Ql (U) Negative Normal NEGATIVE [facility] Comment on above: Performed By: #### U AMIC ####[facility] [address] [address]DrGene Mancini CAST NONE SEEN Normal NONE SEEN The [facility] Comment on above: Performed By: #### U AMIC ####[facility] [address] [address]Dr. Donis Mancini Clarity (U) CLEAR Normal CLEAR [facility] Comment on above: Performed By: #### U AMIC ####[facility] [address] [address]Dr. Donis Mancini Color (U) YELLOW Normal YELLOW The [facility] Comment on above: Performed By: #### U AMIC ####[facility] [address] [address]Dr. Donis Mancini Crystals LM Nom (Urine sed) NONE SEEN Normal NONE SEEN The [facility] Comment on above: Performed By: #### U AMIC ####[facility] [address]wrx[address] [address]DrGene Mancini Epithelial cells LM Ql (Urine sed) MODERATE Abnormal NONE SEEN /RARE The [facility] Comment on above: Performed By: #### U AMIC ####[facility] [address] [address]Dr. Donis Mancini Glucose Ql (U) 250 mg/dl Abnormal NEGATIVE The [facility] Comment on above: Performed By: #### U AMIC ####[facility] [address] [address]Dr. Donis Mancini Hemoglobin Ql (U) TRACE-INTACT Abnormal NEGATIVE The [facility] Comment on above: Performed By: #### U AMIC ####[facility] [address] [address]Dr. Donis Mancini Ketones Ql (U) Negative Normal NEGATIVE The [facility] Comment on above: Performed By: #### U AMIC ####[facility] [address] [address]Dr. Donis Mancini LEUKOCYTES LARGE Abnormal NEGATIVE The [facility] Comment on above: Performed By: #### U AMIC ####[facility] [address] [place], [place] [address]Dr. Donis Mancini MUCOUS NONE SEEN Normal NONE SEEN The [facility] Comment on above: Performed By: #### U AMIC ####[facility] [address] [place], [place] [address]Dr. Donis Mancini Nitrite Ql (U) Negative Normal NEGATIVE The [facility] Comment on above: Performed By: #### U AMIC ####[facility] K[address] [place], [place] [address]Dr. Donis Mancini pH (U) 6.0 [pH] Normal 5-9 The [facility] Comment on above: Performed By: #### U AMIC ####[facility] [address] [place], [place] [address]Dr. Donis Mancini RBC 2-5 Abnormal 0-2 The [facility] Comment on above: Performed By: #### U AMIC ####[facility] [address] [address]Dr. Donis Mancini SPEC GRAVITY <=1.005 Abnormal 1.005-<=1.02 5 [facility] Comment on above: Performed By: #### U AMIC ####[facility] [address] [place] [address]Dr. Donis Mancini UA PROTEIN Negative Normal NEGATIVE/ TRACE The [facility] Comment on above: Performed By: #### U AMIC ####[facility] [address] [place] [address]Dr. Donis Mancini Urobilinogen Qn (U) 0.2 {Sarah'U}/dL Normal 0.2 - 1. 0 The [facility] Comment on above: Performed By: #### U AMIC ####[facility] [address] [place], [place] [address]Dr. Donis Mancini WBC 10-20 Abnormal NONE SEEN The [facility] Comment on above: Performed By: #### U AMIC ####[facility] [address] [place] [address]Dr. Donis Mancini CULTURE URINEon 04-27-2022 CULTURE URINE Culture Observations: LIGHT GROWTH OF MIXED GENITAL RAMBO. NO POTENTIAL PATHOGENS SEEN. Normal The [facility] Comment on above: Performed By: #### U RCX ####[facility] E[address] [place], [place] [address]Dr. Donis Mancini UA (CLEAN/CATCH) COVER ASSEMBLER/MICRO I F IND.on 04-27-2022 Bilirubin Ql (U) Negative Normal NEGATIVE The [facility] Comment on above: Performed By: #### U ACSWENDY UMICRO ####[facility] J[address] [place], [place] [address]Dr. Donis Mancini Clarity (U) CLEAR Normal CLEAR The [facility] Comment on above: Performed By: #### U ACSIND UMICRO ####[facility] [address] [place], [place] [address]Dr. Donis Mancini Color (U) LT. YELLOW Normal YELLOW The [facility] Comment on above: Performed By: #### U ACSIND, UMICRO ####[facility] [address] [place] [address]Dr. Donis Mancini Glucose Ql (U) Negative Normal NEGATIVE The [facility] Comment on above: Performed By: #### U ACSWENDY UMICRO ####[facility] [address] [address]Dr. Donis Mancini Hemoglobin Ql (U) Negative Normal NEGATIVE The [facility] Comment on above: Performed By: #### U ACSWENDY UMICRO ####[facility] [address] [place] [address]Dr. Donis Mancini Ketones Ql (U) Negative Normal NEGATIVE The [facility] Comment on above: Performed By: #### U ACSWENDY UMICRO ####[facility] [address] [place] [address]Dr. Donis Mancini LEUKOCYTES SMALL Abnormal NEGATIVE The [facility] Comment on above: Performed By: #### U ACSWENDY UMICRO ####[facility] [address] [place] [address]Dr. Donis Mancini Nitrite Ql (U) Negative Normal NEGATIVE The [facility] Comment on above: Performed By: #### U ACSWENDY UMICRO ####[facility] [address]fmb[address] [place], [place] [address]Dr. Donis Mancini pH (U) 7.0 [pH] Normal 5-9 The [facility] Comment on above: Performed By: #### U NELSON UMICRO ####[facility] Cav[address] [place], [place] [address]Dr. Donis Mancini SPEC GRAVITY 1.015 Normal 1.005-<=1.02 5 [facility] Comment on above: Performed By: #### U ACSWENDY UMICRO ####[facility] [address] [address]Dr. Donis Mancini UA PROTEIN Negative Normal NEGATIVE/ TRACE The [facility] Comment on above: Performed By: #### U ACSWENDY UMICRO ####[facility] [address] [id number]. Donis Mancini UR MICRO IND INDICATED Normal The [facility] Comment on above: Performed By: #### U ACSWENDY UMICRO ####[facility] [id number] [place], [place] [address]Dr. Donis Mancini Urobilinogen Qn (U) 0.2 {Sarah'U}/dL Normal 0.2 - 1. 0 [facility] Comment on above: Performed By: #### NEFTALY MONIQUEICRO ####[facility] [address] [place] [address]Dr. Donis Mancini URINE MICROSCOPIC ONLYon BACTERIA MODERATE Abnormal NONE SEEN The [facility] Comment on above: Performed By: #### NEFTALY MONIQUEICRO ####[facility] [address] [place] [address]Dr. Donis Mancini Bacteria identified Cx Nom (U) INDICATED Normal The [facility] Comment on above: Performed By: #### NEFTALY MONIQUEICRO ####[facility] [address] [place] [address]Dr. Donis Mancini CAST NONE SEEN Normal NONE SEEN The [facility] Comment on above: Performed By: #### LORETTA MONIQUERO ####[facility] [address] [place] [address]Dr. Donis Mancini Crystals LM Nom (Urine sed) NONE SEEN Normal NONE SEEN The [facility] Comment on above: Performed By: #### LORETTA MONIQUERO ####[facility] [address] [place] [address]Dr. Donis Mancini Epithelial cells LM Ql (Urine sed) MODERATE Abnormal NONE SEEN /RARE The [facility] Comment on above: Performed By: #### NEFTALY MONIQUEICRO ####[facility] [address] [place] [address]Dr. Donis Mancini MUCOUS NONE SEEN Normal NONE SEEN The [facility] Comment on above: Performed By: #### U NEFTALY DAMONICRO ####[facility] [address] [place] [address]Dr. Donis Mancini RBC NONE SEEN Abnormal 0-2 [facility] Comment on above: Performed By: #### U NELSON UMICRO ####[facility] [address] [place] [address]Dr. Donis Mancini WBC 2-5 Abnormal NONE SEEN The [facility] Comment on above: Performed By: #### U ACSDONNA NGUYEN ####[facility] [address] [place], [place] [address]KqGene Mancini US KIDNEYSon 04-27-2022 US KIDNEYS EXAM: [...] ANDREAS AN Date: 2022-04-27 17:48 Normal [facility] CULTURE URINEon 04-16-2022 CULTURE URINE Isolate 1 [...] Trimethoprim/Sulfame thoxazole <=20 S F Normal The [facility] Comment on above: Performed By: #### U RCX #### [facility] Laboratory [address] [place], [place] [address] Dr. Donis Mancini US PREG ANATOMY SINGLEon [...] ESTEFANY BENNETT Date: 2022-04-12 22:22 Normal [facility] UA RANDOM W/MICROSCOPICon BACTERIA SMALL Abnormal NONE SEEN The [facility] Comment on above: Performed By: #### U AMIC #### [facility] Laboratory [address] [place], [place] [address] Dr. Donis Mnacini Bilirubin Ql (U) Negative Normal NEGATIVE The [facility] Comment on above: Performed By: #### U AMIC #### [facility] [address] [place], [place] [address] Dr. Donis Mancini CAST NONE SEEN Normal NONE SEEN The [facility] Comment on above: Performed By: #### U AMIC #### [facility] [address] [address] [address] Donis Mancini Clarity (U) CLEAR Normal CLEAR [facility] Comment on above: Performed By: #### U AMIC #### [facility] [address] [address] [address] Donis Mancini Color (U) LT. YELLOW Normal YELLOW [facility] Comment on above: Performed By: #### U AMIC #### [facility] [address] [address] [address] Donis Mancini Crystals LM Nom (Urine sed) NONE SEEN Normal NONE SEEN [facility] Comment on above: Performed By: #### U AMIC #### [facility] [address] [address] [address] Donis Mancini Epithelial cells LM Ql (Urine sed) FEW Abnormal NONE SEEN /RARE The [facility] Comment on above: Performed By: #### U AMIC #### [facility] Laboratory [address] [place] [address] Dr. Donis Mancini Glucose Ql (U) Negative Normal NEGATIVE The [facility] Comment on above: Performed By: #### U AMIC #### [facility] [address] [address] [address] Donis Mancini Hemoglobin Ql (U) Negative Normal NEGATIVE The [facility] Comment on above: Performed By: #### U AMIC #### [facility] [address] [place] [address] Dr. Donis Mancini Ketones Ql (U) Negative Normal NEGATIVE The [place] [facility] Comment on above: Performed By: #### U AMIC #### [facility] [address] [place] [address] Dr. Donis Mancini LEUKOCYTES LARGE Abnormal NEGATIVE The [facility] Comment on above: Performed By: #### U AMIC #### [facility] [address] [address] [address] Donis Mancini MUCOUS NONE SEEN Normal NONE SEEN [facility] Comment on above: Performed By: #### U AMIC #### [facility] [address] [address] [address] Donis Mancini Nitrite Ql (U) Negative Normal NEGATIVE The [place] [facility] Comment on above: Performed By: #### U AMIC #### [facility] [address] [place] [address] Dr. Donis Mancini pH (U) 5.5 [pH] Normal 5-9 [facility] Comment on above: Performed By: #### U AMIC #### [facility] [address] [place] [address] Dr. Donis Mancini RBC 0-2 Normal 0-2 [facility] Comment on above: Performed By: #### U AMIC #### [facility] [address] [place] [address] Dr. Donis Mancini SPEC GRAVITY <=1.005 Abnormal 1.005-<=1.02 5 [facility] Comment on above: Performed By: #### U AMIC #### [facility] [address] [place] [address] Dr. Donis Mancini UA PROTEIN Negative Normal NEGATIVE/ TRACE The [facility] Comment on above: Performed By: #### U AMIC #### [facility] [address] [place] [address] Dr. Donis Mancini Urobilinogen Qn (U) 0.2 {Sarah'U}/dL Normal 0.2 - 1. 0 [facility] Comment on above: Performed By: #### U AMIC #### [facility] [address] [place] [address] Dr. Donis Mancini WBC 5-10 Abnormal NONE SEEN [facility] Comment on above: Performed By: #### U AMIC #### [facility] [address] [place] [address] Dr. Donis Mancini HEP B SURFACE ANTIGEN SCREEN on 01-23-2022 HBsAg Screen Negative Normal Negative [facility] Comment on above: Performed By: #### U AMIC #### [facility] [address] [place] [address] Dr. Donis Mancini HEPATITIS C VIRUS AB W/ REFL EX QUANTon 01-23-2022 HCV AB 0.1 s/co ratio Normal 0.0-0.9 [facility] Comment on above: Performed By: #### H CVPCRR ####[facility] [address] [place], [place] [address]Tk. Donis Mancini Interpretation: Comment Normal The [facility] Comment on above: Result Comment: Nega tive Not infected with HCV, unless recent infection is suspected or other evidence exists to indicate HCV infection. Performed By: #### H CVPCRR ####[facility] [address] [place] [id number]. Donis Mancini HIV 1 AND 2 WITH REFLEXon HIV Screen 4th Generation wRfx Non-Reactive Normal Non Reactive [facility] Comment on above: Result Comment: HIV Negative HIV-1/HIV-2 antibodies and HIV-1 p24 antigen were NOT detected. There is no laboratory evidence of HIV infection. Performed By: #### H IV12 ####[facility] [address] [place] [id number]. Donis Mancini RPR QUANTon 01-23-2022 Rapid Plasma Reagin, Quant Non-Reactive Normal NonRea<1:1 [facility] Comment on above: Result Comment: Plea se Note: This test does not meet current guidelines for screening and diagnosis of syphilis. This test is intended for following treatment response in patients being treated for syphilis infection. To screen for syphilis infection, a reflex cascade that includes both RPR and a treponema-specific assay should be utilized, such as Treponema pallidum (Syphilis) Screening [place] (921601) or Rapid Plasma Reagin (RPR) Test With Reflex to Quantitative RPR and Confirmatory Treponema pallidum Antibodies (478797). Performed By: #### R PRQ ####[facility] [address] [place] [id number]. Donis Mancini RUBELLA AB IGGon 01-23-2022 Rubella Antibodies, IgG 1.60 index Normal Immune >0.99 [facility] Comment on above: Result Comment: Non- immune <0.90 Equivocal 0.90 - 0.99 Immune >0.99 Performed By: #### U AMIC #### [facility] [address] [address] [address] Donis Mancini CBC AUTO DIFFon 01-22-2022 BASO # 0.1 103/ul Normal 0.0-0.1 [facility] Comment on above: Performed By: #### U AMIC #### [facility] [address] [place] [address] Dr. Donis Mancini Basophils/100 WBC (Bld) 0.5 % Normal 0.2-2.0 [facility] Comment on above: Performed By: #### U AMIC #### [facility] [address] [place] [address] Dr. Donis Mancini EO # 0.6 103/ul Normal 0.0-0.7 [facility] Comment on above: Performed By: #### U AMIC #### [facility] [address] [place] [address] Dr. Donis Mancini Eosinophils/100 WBC (Bld) 5.1 % Normal 0.9-7.0 [facility] Comment on above: Performed By: #### U AMIC #### [facility] [address] [place] [address] Dr. Donis Mancini Erythrocyte distribution width (RBC) [Ratio] 12.0 % Normal 11.0-15.0 [facility] Comment on above: Performed By: #### U AMIC #### [facility] [address] [place] [address] Dr. Donis Mancini Hematocrit (Bld) [Volume fraction] 45.8 % Normal 36.0-48.0 [facility] Comment on above: Performed By: #### U AMIC #### [facility] [address] [place] [address] Dr. Donis Mancini Hemoglobin (Bld) [Mass/Vol] 15.3 g/dL Normal 12.0-16.0 [facility] Comment on above: Performed By: #### U AMIC #### [facility] [address] [place] [address] Dr. Donis Mancini IG # 0.03 10e3/ul Normal 0.00-0.03 [facility] Comment on above: Performed By: #### U AMIC #### [facility] [address] [place] [address] Dr. Donis Mancini IG % 0.3 % Normal 0.0-0.5 [facility] Comment on above: Performed By: #### U AMIC #### [facility] [address] [place] [address] Dr. Donis Mancini LYMPH # 1.7 103/ul Normal 1.2-3.8 [facility] Comment on above: Performed By: #### U AMIC #### [facility] [address] [place] [address] Dr. Donis Mancini Lymphocytes/100 WBC (Bld) 15.9 % Critically low 20.5-60.0 [facility] Comment on above: Performed By: #### U AMIC #### [facility] [address] [place] [address] Dr. Donis Mancini MANUAL DIFF REQ NO Normal [facility] Comment on above: Performed By: #### U AMIC #### [facility] [address] [place] [address] Dr. Donis Mancini MCH (RBC) [Entitic mass] 31.5 pg Normal 26.7-34.0 [facility] Comment on above: Performed By: #### U AMIC #### [facility] [address] [place] [address] Dr. Donis Mancini MCHC (RBC) [Mass/Vol] 33.4 g/dL Normal 29.9-35.2 [facility] Comment on above: Performed By: #### U AMIC #### [facility] [address] [place] [address] Dr. Donis Mancini MCV (RBC) [Entitic vol] 94.2 fL Normal 81.0-99.0 [facility] Comment on above: Performed By: #### U AMIC #### [facility] [address] [place] [address] Dr. Donis Mancini MONO # 0.6 103/ul Normal 0.3-0.8 [facility] Comment on above: Performed By: #### U AMIC #### [facility] [address] [place] [address] Dr. Donis Mancini Monocytes/100 WBC (Bld) 5.8 % Normal 1.7-12.0 [facility] Comment on above: Performed By: #### U AMIC #### [facility] [address] [address] [address] Donis Mancini NEUT # 7.8 103/ul Critically high 1.4-6.5 [facility] Comment on above: Performed By: #### U AMIC #### [facility] [address] [address] [address] Donis Mancini Neutrophils/100 WBC (Bld) 72.4 % Normal 43.0-75.0 [facility] Comment on above: Performed By: #### U AMIC #### [facility] [address] [place] [address] Dr. Donis Mancini Platelet mean volume (Bld) [Entitic vol] 9.9 fL Normal 9.5-13.5 [facility] Comment on above: Performed By: #### U AMIC #### [facility] [address] [place] [address] Dr. Donis Mancini PLT 281 103/ul Normal 150-450 [facility] Comment on above: Performed By: #### U AMIC #### [facility] [address] [place] [address] Dr. Donis Mancini RBC 4.86 106/ul Normal 4.20-5.40 [facility] Comment on above: Performed By: #### U AMIC #### [facility] [address] [place] [address] Dr. Donis Mancini WBC 10.8 103/ul Normal 4.0-11.0 [facility] Comment on above: Performed By: #### U AMIC #### [facility] [address] [address] [address] Donis Mancini CULTURE URINEon 01-22-2022 CULTURE URINE Culture Observations: LIGHT GROWTH OF MIXED GENITAL RAMBO. NO POTENTIAL PATHOGENS SEEN. Normal The [facility] Comment on above: Performed By: #### U RCX #### [facility] [address] [place] [address] Dr. Donis Mancini GLYCOHEMOGLOBIN A1Con 2021 ADA RECOMMENDATION SEE BELOW Normal The [facility] Comment on above: Result Comment: ADA RECOMMENDED LIMIT 4.0 - 6.0 ADA THERAPEUTIC TARGET < 7.0 ACTION SUGGESTED > 7.0 Performed By: #### A 1C ####[facility] [address] [place] [id number]. Donis Mancini Glucose [Mass/Vol] 100 mg/dL Normal The [facility] Comment on above: Performed By: #### A 1C ####[facility] [address] [place] [id number]. Donis Mancini HbA1c (Bld) [Mass fraction] 5.1 % Normal 4.5-6.2 The [facility] Comment on above: Performed By: #### A 1C ####[facility] [address] [place] [id number]. Donis Mancini SEAN BOX TEST PT SEND OUTo n 01-22-2022 SENT TO REF LAB 01/22/2022 Normal The [facility] Comment on above: Performed By: #### N BOX ####[facility] [address] [place] [id number]. Donis Mancini TYPE AND SCREENon 01-22-2022 TYPE AND SCREEN Negative Normal [facility] Comment on above: Performed By: #### T NS #### [facility] [address] [place], [place] [address] Dr. Donis Mancini US PREG TVon 01-17-2022 [...] by: COCO STERN Date: 2022-01-17 09:34 Normal [facility] Provider Letteron 04-06-2021 Provider Letter April 06, 2021 Dear Vimal, We have been trying to reach you with no success. It is important that you return our call regarding your appointment upon receiving this letter. Also, at the time of your call, please provide us with your current information. Thank you for your prompt attention to this matter. Sincerely, [employer] [place] [address] [place] [address] [facility] Ambulatory Clinical Summaryo n 03-10-2021 Ambulatory Clinical Summary {[id number]}CD:[id number] Normal [facility] Ambulatory Clinical Summaryo n 03-05-2021 Ambulatory Clinical Summary {[id number]}CD:[id number] Normal [facility] Gynecology Phone Visit- Tele healthon 03-05-2021 Gynecology [...] only communication with the patient located at [address] [place] [address] [place] [id number], with no one else. 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 CODING DATE: 12/18/2020 [facility] STATUS: Home (Routine DC) PAYOR: Wolford ADMIT DX: REASON FOR VISIT DX: U07.1 [...] Galvan CphT Date Saved: 12/18/2020 12:44 pm [facility] Physician Orderon 12-16-2020 Physician Order [id number] #[id number]:127 [facility] Rapid COVID Antigen ([facility])on 12-16-2020 Rapid COV Int NEG Ctl Pass Normal [facility] Comment on above: Performed By: #### 2 [id number] #### [facility] [address] [place] [address] Rapid COV Int POS Ctl Pass Normal [facility] Comment on above: Performed By: #### 2 [id number] #### [facility] [address] [place] [address] SARS-CoV-2 (COVID-19) RNA INESSA+probe Ql (Unsp spec) Detected Abnormal Not Detected [facility] Comment on above: Result Comment: Left a message for callback. 12/16/2020 11:42:47 EDT Results faxed to infection control. The [employer]? System for Rapid Detection of SARS-CoV-2 is [...] For in vitro diagnostic use. In the [facility], only for use under an Emergency [...] or revoked sooner. Performed By: #### 2 [id number] #### [facility] [address] [place] [address] Employed in Healthcare Unknown Normal [facility] Comment on above: Performed By: #### 2 [id number] #### [facility] [address] [place] [address] First Test Unknown Normal [facility] Comment on above: Performed By: #### 2 [id number] #### [facility] [address] [place] [address] Hospitalized? NO Normal [facility] Comment on above: Performed By: #### 2 [id number] #### [facility] [address] [place] [address] ICU NO Normal [facility] Comment on above: Performed By: #### 2 [id number] #### [facility] [address] [place] [address] ? Unknown Normal [facility] Comment on above: Performed By: #### 2 [id number] #### [facility] [address] [place] [address] Resides in a Congregate Care Setting Unknown Normal [facility] Comment on above: Performed By: #### 2 [id number] #### [facility] [address] [place] [address] Symptomatic as defined by CDC YES Normal [facility] Comment on above: Performed By: #### 2 [id number] #### [facility] [address] [place] [address] Ambulatory Clinical Summaryo n 11-25-2020 Ambulatory Clinical Summary {[id number]}CD:[id number] [facility] Vital Signs Date Time Vital Sign Value Performing Clinician Facility 05-22-2025 15:02-0400 Body mass index (BMI) [Ratio] 31.49 kg/m2 Jose Michael DO Work Phone: [facility] 05-22-2025 15:02-0400 Body weight 80.63 kg Jose Michael DO Work Phone: [facility] 05-22-2025 15:02-0400 Diastolic blood pressure 92 mm[Hg] Jose Michael DO Work Phone: [facility] 05-22-2025 15:02-0400 Systolic blood pressure 138 mm[Hg] Jose Michael DO Work Phone: [facility] 05-14-2025 14:59-0400 Body mass index (BMI) [Ratio] 31.35 kg/m2 Jose Michael DO Work Phone: [facility] 05-14-2025 14:59-0400 Body weight 80.29 kg Jose Michael DO Work Phone: [facility] 05-14-2025 14:59-0400 Diastolic blood pressure 90 mm[Hg] Jose Michael DO Work Phone: [facility] 05-14-2025 14:59-0400 Systolic blood pressure 140 mm[Hg] Jose Michael DO Work Phone: [facility] 05-13-2025 16:11-0400 Body weight 79.83 kg Marjorie Rico RN Work Phone: [facility] 04-30-2025 11:52-0400 Body mass index (BMI) [Ratio] 31 kg/m2 Rossana BISWAS Work Phone: [facility] 04-30-2025 11:52-0400 Body weight 79.38 kg Rossana BISWAS Work Phone: [facility] 04-30-2025 11:52-0400 Diastolic blood pressure 94 mm[Hg] Rossana BISWAS Work Phone: [facility] 04-30-2025 11:52-0400 Systolic blood pressure 140 mm[Hg] Rossana Rachel PA Work Phone: [facility] 04-11-2025 15:38-0400 Body mass index (BMI) [Ratio] 30.2 kg/m2 Rossana Gilbert PA Work Phone: [facility] 04-11-2025 15:38-0400 Body weight 77.34 kg Rossana Gilbert PA Work Phone: [facility] 04-11-2025 15:38-0400 Diastolic blood pressure 100 mm[Hg] Rossana Rachel PA Work Phone: [facility] 04-11-2025 15:38-0400 Systolic blood pressure 142 mm[Hg] Rossana Rachel PA Work Phone: [facility] 03-14-2025 11:36-0400 Body mass index (BMI) [Ratio] 29.23 kg/m2 Jose Michael DO Work Phone: [facility] 03-14-2025 11:36-0400 Body weight 74.84 kg Jose Michael DO Work Phone: [facility] 03-14-2025 11:36-0400 Diastolic blood pressure 76 mm[Hg] Jose Michael DO Work Phone: [facility] 03-14-2025 11:36-0400 Systolic blood pressure 112 mm[Hg] Jose Michael DO Work Phone: [facility] 02-20-2025 16:08-0400 Body mass index (BMI) [Ratio] 28.83 kg/m2 Rossana Gilbert PA Work Phone: [facility] 02-20-2025 16:08-0400 Body weight 73.82 kg Rossana Rachel PA Work Phone: [facility] 02-20-2025 16:08-0400 Diastolic blood pressure 82 mm[Hg] Rossana Rachel PA Work Phone: [facility] 02-20-2025 16:08-0400 Systolic blood pressure 110 mm[Hg] Rossana Rachel PA Work Phone: [facility] 01-14-2025 15:42-0400 Body mass index (BMI) [Ratio] 27.3 kg/m2 Jose Michael DO Work Phone: [facility] 01-14-2025 15:42-0400 Body weight 69.91 kg Jose Michael DO Work Phone: [facility] 01-14-2025 15:42-0400 Diastolic blood pressure 70 mm[Hg] Jose Michael DO Work Phone: [facility] 01-14-2025 15:42-0400 Systolic blood pressure 120 mm[Hg] Jose Michael DO Work Phone: [facility] 08-20-2024 10:55-0500 Body mass index (BMI) [Ratio] 25.93 kg/m2 Rossana BISWAS Work Phone: [facility] 08-20-2024 10:55-0500 Body weight 66.41 kg Rossana BISWAS Work Phone: [facility] 08-20-2024 10:55-0500 Diastolic blood pressure 70 mm[Hg] Rossana BISWAS Work Phone: [facility] 08-20-2024 10:55-0500 Systolic blood pressure 120 mm[Hg] Rossana BISWAS Work Phone: [facility] 08-06-2024 09:38-0500 Body mass index (BMI) [Ratio] 25.47 kg/m2 Jose Michael DO Work Phone: [facility] 08-06-2024 09:38-0500 Body weight 65.23 kg Jose Michael DO Work Phone: [facility] 08-06-2024 09:38-0500 Diastolic blood pressure 70 mm[Hg] Jose Michael DO Work Phone: [facility] 08-06-2024 09:38-0500 Systolic blood pressure 120 mm[Hg] Jose Michael DO Work Phone: [facility] 06-29-2024 09:12-0400 Body mass index (BMI) [Ratio] 24.58 kg/m2 [facility] Nurse [facility] 06-29-2024 09:12-0400 Body weight 62.94 kg [facility] Nurse [facility] 06-29-2024 09:12-0400 Diastolic blood pressure 72 mm[Hg] [facility] Nurse [facility] 06-29-2024 09:12-0400 Systolic blood pressure 122 mm[Hg] [facility] Nurse [facility] 12-26-2022 13:45-0400 Body height 160.02 cm Jennifer Betzaida Other [facility] Other 12-26-2022 13:45-0400 Body mass index (BMI) [Ratio] 27.45 kg/m2 Jennifer Betzaida Other [facility] Other 12-26-2022 13:45-0400 Body temperature 97 [degF] Jennifer Betzaida Other [facility] Other 12-26-2022 13:45-0400 Body weight 70.31 kg Jennifer Betzaida Other [facility] Other 12-26-2022 13:45-0400 Diastolic blood pressure 89 mm[Hg] Jennifer Betzaida Other [facility] Other 12-26-2022 13:45-0400 Respiratory rate 18 /min Jennifer Betzaida Other [facility] Other 12-26-2022 13:45-0400 SaO2% (BldA) [Mass fraction] 100 % Jennifer Betzaida Other [facility] Other 12-26-2022 13:45-0400 Systolic blood pressure 135 mm[Hg] Jennifer Huston Other [facility] [employer] Other Encounters Encounter Date Encounter Type Care Provider Facility Start: 05-22-2025 End: 05-22-2025 flow sheet Jose Michael DO Work Phone: [facility] Comment on above: Third trimester preg alysa ([facility]); 31 weeks gestation of ([facility]) Start: 05-22-2025 End: 05-22-2025 Bamboo flowsheet Jose Michael DO Work Phone: [facility] Start: 05-22-2025 End: 05-22-2025 Bamboo flowsheet Jose Michael DO Work Phone: [facility] Start: 05-21-2025 End: 05-21-2025 Telephone encounter Chante Muse LD Work Phone: [facility] Start: 05-20-2025 End: 05-20-2025 Clinisync Result Encounter Jose Michael DO Work Phone: [facility] Unsolicited Start: 05-20-2025 End: 05-20-2025 Clinisync Result Encounter Jose Michael DO Work Phone: [facility] Unsolicited Start: 05-18-2025 End: 05-18-2025 Clinisync Result Encounter Jose Michael DO Work Phone: [facility] External [facility] Unsolicited Start: 05-18-2025 End: 05-18-2025 Clinisync Result Encounter Jose Michael DO Work Phone: [facility] External [facility] Unsolicited Start: 05-14-2025 End: 05-14-2025 ambulatory JOSE MICHAEL Not Available Start: 05-14-2025 End: 05-14-2025 flow sheet Jose Michael DO Work Phone: [facility] Comment on above: Third trimester preg alysa ([facility]); 30 weeks gestation of ([facility]); induced hypertension, antepartum ([facility]) Start: 05-14-2025 End: 05-14-2025 Bamboo flowsheet Jose Michael DO Work Phone: [facility] Start: 05-14-2025 End: 05-14-2025 Bamboo flowsheet Jose Michael DO Work Phone: [facility] Start: 05-13-2025 End: 05-13-2025 ambulatory Marjorie Rico RN Work Phone: [facility] Comment on above: Gestational diabetes mellitus (GDM) in third trimester, gestational diabetes method of control unspecified Start: 05-11-2025 End: 05-11-2025 Clinisync Result Encounter Rossana BISWAS Work Phone: [facility] Unsolicited Start: 05-11-2025 End: 05-11-2025 Clinisync Result Encounter Rossana BISWAS Work Phone: [facility] Unsolicited Start: 05-10-2025 End: 05-10-2025 Chart abstracting Scanning Provider External [facility] Start: 05-06-2025 End: 05-06-2025 Clinisync Result Encounter [...] Start: 05-04-2025 End: 05-08-2025 Telephone encounter Jose Michelezio DO Work Phone: [facility] Start: 04-30-2025 [...] flow sheet Rossana BISWAS Work Phone: [facility] Comment on above: BP check; -induced hypertension in third trimester ([facility]); Gestational diabetes mellitus (GDM) in third trimester, gestational diabetes method of control unspecified ([facility]) Start: 04-27-2025 End: 04-27-2025 Clinisync Result Encounter Rossana BISWAS Work Phone: [facility] Unsolicited Start: 04-27-2025 End: 04-27-2025 Clinisync Result Encounter Rossana Rachel TRUE Work Phone: [facility] Unsolicited Start: 04-25-2025 End: 04-25-2025 flow sheet Rossana Gilbert PA Work Phone: [facility] Comment on above: Second trimester pre gnancy ([facility]); 27 weeks gestation of ([facility]); induced hypertension, antepartum ([facility]) Start: 04-25-2025 End: 04-25-2025 ambulatory ROSSANA RAMOS Not Available Start: 04-25-2025 End: 04-25-2025 Bamboo flowsheet Rossana BISWAS Work Phone: [facility] Start: 04-25-2025 End: 04-25-2025 Bamboo flowsheet Rossana BISWAS Work Phone: [facility] Start: 04-11-2025 End: 04-11-2025 ambulatory ROSSANA RAMOS Not Available Start: 04-11-2025 End: 04-11-2025 flow sheet Rossana BISWAS Work Phone: [facility] Comment on above: Second trimester pre gnancy ([facility]); 25 weeks gestation of ([facility]); Diabetes mellitus screening; Elevated BP without [...] Comment on above: Second trimester pre gnancy ([facility]); 21 weeks gestation of ([facility]) Start: 03-08-2025 End: 03-08-2025 Clinisync Result Encounter Jose Michael DO Work Phone: [facility] Unsolicited Start: 03-08-2025 End: 03-08-2025 Clinisync Result Encounter Jose Michael DO Work Phone: [facility] Unsolicited Start: 02-20-2025 End: 02-20-2025 Patient encounter procedure Rossana Rachel PA Work Phone: [facility] Start: 02-20-2025 End: 02-20-2025 flow sheet Rossana Rachel PA Work Phone: [facility] Comment on above: Screening, , for anatomic survey; Well woman exam with routine gynecological exam; STD exposure; Second trimester ; 18 weeks gestation of ; Urinary frequency Start: 02-20-2025 End: 02-20-2025 ambulatory ROSSANA RAMOS Not Available Start: 02-20-2025 End: 02-20-2025 Bamboo flowsheet Rossana BISWAS Work Phone: [facility] Start: 02-20-2025 End: 02-23-2025 Bamboo flowsheet Rossana Rachel PA Work Phone: [facility] Start: 02-20-2025 End: 02-23-2025 Clinisync Result Encounter Rossana Rachel TRUE Work Phone: [facility] External Department Unsolicited Start: 02-20-2025 End: 02-22-2025 External Result Encounter Rossana Rachel PA Work Phone: [...] 08-10-2024 End: 08-10-2024 ambulatory PHYSICIAN NO [facility] Work Phone: Start: 08-10-2024 End: 08-10-2024 Departed Referred PHYSICIAN NO 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 Jennifer Huston Work Phone: Start: 11-02-2022 [...] malign ant neoplasm of cervix Pap Smear [facility] Start: 06-04-2025 End: 06-04-2025 Patient encounter procedure 06/04/2025 1:00 PM EDT Appointment [facility] - [facility]trasound [address] [place] [phone] Jose Rodriguez R, DO [address] [place] [address] [facility] - [facility] Start: 05-28-2025 End: 05-28-2025 Patient encounter procedure 05/28/2025 10:30 AM EDT Routine [facility] [address] [place] [phone] Jose Rodriguez, [address] [place] [address] [facility] Start: 05-27-2025 Influenza vaccination N [facility] Start: 05-22-2025 End: 05-22-2025 Patient encounter procedure 05/22/2025 2:40 PM EDT Routine [facility] [address] [place] [phone] Jose Rodriguez, [address] [place] [address] [facility] [place] [facility] Start: 05-14-2025 End: 05-14-2025 Patient encounter procedure 05/14/2025 2:40 PM EDT [facility] [address] [place] [address] Jose Rodriguez DO [address] [place] [place] [address] [facility] Start: 05-14-2025 End: 05-14-2026 Alanine aminotransferase [Enzymatic activity/volume] in Serum or Plasma ALT Lab Routine induced hypertension, antepartum ([facility]) Expected: 05/14/2025 (Approximate), Expires: 05/14/2026 [facility] Comment on above: Expected: 05/14/2025 (Approximate), Expires: 05/14/2026 Start: 05-14-2025 End: 05-14-2026 Aspartate aminotransferase [Enzymatic activity/volume] in Serum or Plasma AST Lab Routine induced hypertension, antepartum ([facility]) Expected: 05/14/2025 (Approximate), Expires: 05/14/2026 [facility] Comment on above: Expected: 05/14/2025 (Approximate), Expires: 05/14/2026 Start: 05-14-2025 End: 05-14-2026 CBC W Auto Differential panel - Blood CBC and differential Lab Routine induced hypertension, antepartum ([facility]) Expected: 05/14/2025 (Approximate), Expires: 05/14/2026 [facility] Comment on above: Expected: 05/14/2025 (Approximate), Expires: 05/14/2026 Start: 05-14-2025 End: 05-14-2026 Creatinine [Mass/volume] in Serum or Plasma Creatinine Lab Routine induced hypertension, antepartum ([facility]) Expected: 05/14/2025 (Approximate), Expires: 05/14/2026 [facility] Work Phone: Comment on above: Expected: 05/14/2025 (Approximate), Expires: 05/14/2026 Start: 05-14-2025 End: 05-14-2026 Lactate dehydrogenase [Enzymatic activity/volume] in Serum or Plasma by Lactate to pyruvate reaction Lactate dehydrogenase Lab Routine induced hypertension, antepartum ([facility]) Expected: 05/14/2025, Expires: 05/14/2026 [facility] Comment on above: Expected: 05/14/2025 , Expires: 05/14/2026 Start: 05-14-2025 End: 05-14-2026 Protein, urine, 24 hour Protein, urine, 24 hour Lab Routine induced hypertension, antepartum ([facility]) Expected: 05/14/2025 (Approximate), Expires: 05/14/2026 [facility] Comment on above: Expected: 05/14/2025 (Approximate), Expires: 05/14/2026 Start: 05-14-2025 End: 05-14-2026 Pt and ptt Pt and ptt Lab Routine induced hypertension, antepartum ([facility]) Expected: 05/14/2025, Expires: 05/14/2026 [facility] Comment on above: Expected: 05/14/2025 , Expires: 05/14/2026 Start: 05-14-2025 End: 05-14-2026 Urate [Mass/volume] in Serum or Plasma Uric acid Lab Routine induced hypertension, antepartum ([facility]) Expected: 05/14/2025 (Approximate), Expires: 05/14/2026 [facility] Comment on above: Expected: 05/14/2025 (Approximate), Expires: 05/14/2026 Start: 05-14-2025 End: 05-14-2026 Urea nitrogen [Mass/volume] in Serum or Plasma BUN Lab Routine induced hypertension, antepartum ([facility]) Expected: 05/14/2025, Expires: 05/14/2026 [facility] Comment on above: Expected: 05/14/2025 , Expires: 05/14/2026 Start: 05-13-2025 End: 05-13-2025 ambulatory 05/13/2025 1:30 PM EDT Support Visit [facility] [address] [place] [address] Marjorie Rico RN [address] [facility], [address] [place] [address] [address] Rayo, RD [address], [address] [place] [address] [facility] Start: 04-30-2025 End: 10-31-2025 US biophysical profile w non stress test US biophysical profile w non stress test Imaging Routine -induced hypertension in third trimester ([facility]) Gestational diabetes mellitus (GDM) in third trimester, gestational diabetes method of control unspecified ([facility]) Expected: 04/30/2025 (Approximate), Expires: 10/31/2025 [facility] Work Phone: Comment on above: Expected: 04/30/2025 (Approximate), Expires: 10/31/2025 Start: 04-30-2025 End: 08-30-2025 US for US OB follow up transabdominal approach Imaging Routine -induced hypertension in third trimester ([facility]) Gestational diabetes mellitus (GDM) in third trimester, gestational diabetes method of control unspecified ([facility]) Expected: 04/30/2025, Expires: 08/30/2025 [facility] Comment on above: Expected: 04/30/2025 , Expires: 08/30/2025 Start: 04-30-2025 End: 04-30-2025 Patient encounter procedure 04/30/2025 10:50 AM EDT Routine [facility] [address] [place] [phone] Rossana Ramos PA [address] [place] [address] [facility] Start: 04-25-2025 End: 04-25-2025 Patient encounter procedure [facility] Comment on above: Arrived Start: 04-25-2025 End: 04-25-2026 Alanine aminotransferase [Enzymatic activity/volume] in Serum or Plasma ALT Lab Routine induced hypertension, antepartum ([facility]) Expected: 04/25/2025 (Approximate), Expires: 04/25/2026 [facility] Comment on above: Expected: 04/25/2025 (Approximate), Expires: 04/25/2026 Start: 04-25-2025 End: 04-25-2026 Aspartate aminotransferase [Enzymatic activity/volume] in Serum or Plasma AST Lab Routine induced hypertension, antepartum ([facility]) Expected: 04/25/2025 (Approximate), Expires: 04/25/2026 [facility] Comment on above: Expected: 04/25/2025 (Approximate), Expires: 04/25/2026 Start: 04-25-2025 End: 04-25-2026 CBC W Auto Differential panel - Blood CBC and differential Lab Routine induced hypertension, antepartum ([facility]) Expected: 04/25/2025 (Approximate), Expires: 04/25/2026 [facility] Comment on above: Expected: 04/25/2025 (Approximate), Expires: 04/25/2026 Start: 04-25-2025 End: 04-25-2026 Creatinine [Mass/volume] in Serum or Plasma Creatinine Lab Routine induced hypertension, antepartum ([facility]) Expected: 04/25/2025 (Approximate), Expires: 04/25/2026 [facility] Work Phone: Comment on above: Expected: 04/25/2025 (Approximate), Expires: 04/25/2026 Start: 04-25-2025 End: 04-25-2026 Lactate dehydrogenase [Enzymatic activity/volume] in Serum or Plasma by Lactate to pyruvate reaction Lactate dehydrogenase Lab Routine induced hypertension, antepartum ([facility]) Expected: 04/25/2025, Expires: 04/25/2026 [facility] Comment on above: Expected: 04/25/2025 , Expires: 04/25/2026 Start: 04-25-2025 End: 04-25-2026 Protein, urine, 24 hour Protein, urine, 24 hour Lab Routine induced hypertension, antepartum ([facility]) Expected: 04/25/2025 (Approximate), Expires: 04/25/2026 [facility] Comment on above: Expected: 04/25/2025 (Approximate), Expires: 04/25/2026 Start: 04-25-2025 End: 04-25-2026 Pt and ptt Pt and ptt Lab Routine induced hypertension, antepartum ([facility]) Expected: 04/25/2025, Expires: 04/25/2026 [facility] Comment on above: Expected: 04/25/2025 , Expires: 04/25/2026 Start: 04-25-2025 End: 04-25-2026 Urate [Mass/volume] in Serum or Plasma Uric acid Lab Routine induced hypertension, antepartum ([facility]) Expected: 04/25/2025 (Approximate), Expires: 04/25/2026 [facility] Comment on above: Expected: 04/25/2025 (Approximate), Expires: 04/25/2026 Start: 04-25-2025 End: 04-25-2026 Urea nitrogen [Mass/volume] in Serum or Plasma BUN Lab Routine induced hypertension, antepartum ([facility]) Expected: 04/25/2025, Expires: 04/25/2026 [facility] Comment on above: Expected: 04/25/2025 , Expires: 04/25/2026 Start: 04-11-2025 End: 04-11-2025 Patient encounter procedure 04/11/2025 3:30 PM EDT Routine [facility] [address] [place] [phone] Rossana Ramos PA [address] [place] [address] [facility] Start: 04-11-2025 End: 04-11-2026 CBC panel - Blood by Automated count CBC Lab Routine Diabetes mellitus screening Expected: 04/11/2025 (Approximate), Expires: 04/11/2026 [facility] Work Phone: Comment on above: [...] [facility] [address] [place] [phone] Jose Rodriguez, DO [address] [place] [address] [facility] Start: 02-20-2025 End: 02-20-2025 [...] EDT Initial [facility] [address] [place] [phone] [facility] Start: 12-14-2024 End: 12-14-2024 Professional / ancillary services management 12/14/2024 8:30 AM EDT Ancillary Procedure [facility] [address] [place] [phone] [facility] Start: 08-20-2024 End: 08-20-2024 Patient encounter procedure 08/20/2024 10:20 AM EST [facility] [address] [place] [address] Rossana Ramos PA [address] [place], [place] [id number] [facility] Start: 08-06-2024 End: 08-06-2024 Patient encounter procedure 08/06/2024 9:10 AM EST Routine [facility] [address] [place] [phone] Jose Rodriguez DO [address] [place], [place] [phone] [facility] Start: 06-29-2024 End: 06-29-2025 ABO/Rh ABO/Rh Lab Routine Missed menses , unspecified gestational age Expected: 06/29/2024 (Approximate), Expires: 06/29/2025 [facility] Comment on above: Expected: 06/29/2024 (Approximate), Expires: 06/29/2025 Start: 06-29-2024 End: 06-29-2025 Blood type and Indirect antibody screen panel - Blood Type and screen Lab Routine Missed menses , unspecified gestational age Expected: 06/29/2024 (Approximate), Expires: 06/29/2025 [facility] Work Phone: Comment on above: Expected: 06/29/2024 (Approximate), Expires: 06/29/2025 Start: 06-29-2024 End: 06-29-2025 Drugs of abuse panel - Urine by Screen method Rapid drug screen, urine Lab Routine , unspecified gestational age Encounter for supervision of normal first in first trimester Expected: 06/29/2024 (Approximate), Expires: 06/29/2025 [facility] Comment on above: Expected: 06/29/2024 (Approximate), Expires: 06/29/2025 Start: 06-29-2024 End: 06-29-2025 US Pelvis transvaginal US OB transvaginal Imaging Routine Missed menses Expected: 06/29/2024 (Approximate), Expires: 06/29/2025 [facility] Comment on above: Expected: 06/29/2024 (Approximate), Expires: 06/29/2025 Start: 05-27-2024 Influenza vaccination Influenza Vacc ine (#1) [facility] Start: 05-01-2024 DTaP,Tdap and Td Vac cines (7 - Td or Tdap) DTaP,Tdap and Td Vaccines (7 - Td or Tdap) [facility] Start: 2020 DTaP,Tdap and Td Vac cines (1 - Tdap) DTaP,Tdap and Td Vaccines (1 - Tdap) [facility] Start: 2019 Adult BMI Screening Adult BMI Screen ing [facility] Start: 2013 Depression Screening Depression Scre ening [facility] Start: 2013 Tobacco Screening Tobacco Screening [facility] Bacteria identified in Urine by Culture Urine culture Microbiology Routine Missed menses Ordered: 06/29/2024 [facility] Comment on above: Ordered: 06/29/2024 Bacteria identified in Urine by Culture Urine culture Microbiology Routine Urinary frequency Ordered: 02/20/2025 [facility] Comment on above: Ordered: 02/20/2025 CBC W Auto Different ial panel - Blood CBC and differential Lab Routine Missed menses , unspecified gestational age Ordered: 06/29/2024 [facility] Comment on above: Ordered: 06/29/2024 CHLAMYDIA TRACHOMATI S (GENITO/STI) CHLAMYDIA TRACHOMATIS (GENITO/STI) Lab Routine STD exposure Ordered: 02/20/2025 [facility] Comment on above: Ordered: 02/20/2025 Cytology Cervical or vaginal smear or scraping study Pap Smear Pathology and Cytology Routine Well woman exam with routine gynecological exam Ordered: 02/20/2025 [facility] Comment on above: Ordered: 02/20/2025 Hemoglobin A1c/Hemoglobin.total in Blood Hemoglobin A1c Lab Routine Missed menses , unspecified gestational age Ordered: 06/29/2024 [facility] Comment on above: Ordered: 06/29/2024 Hepatitis B virus beltran rface Ag [Presence] in Serum or Plasma by Immunoassay Hepatitis B surface antigen Lab Routine Missed menses , unspecified gestational age Ordered: 06/29/2024 [facility] Comment on above: Ordered: 06/29/2024 Hepatitis C virus Ab [Presence] in Serum or Plasma by Immunoassay Hepatitis C antibody Lab Routine Missed menses , unspecified gestational age Ordered: 06/29/2024 [facility] Comment on above: Ordered: 06/29/2024 HIV-1/HIV-2 antigen/antibody combination immunoassay HIV-1 and HIV-2 antibodies Lab Routine Missed menses , unspecified gestational age Ordered: 06/29/2024 [facility] Comment on above: Ordered: 06/29/2024 Neisseria gonorrhoea e DNA [Presence] in Unspecified specimen by INESSA with probe detection Neisseria gonorrhea DNA probe, direct Lab Routine STD exposure Ordered: 02/20/2025 [facility] Comment on above: Ordered: 02/20/2025 Reagin Ab [Presence] in Serum by RPR RPR Lab Routine Missed menses , unspecified gestational age Ordered: 06/29/2024 [facility] Comment on above: Ordered: 06/29/2024 Rubella antibody, IgG Rubella an tibody, IgG Lab Routine Missed menses , unspecified gestational age Ordered: 06/29/2024 [facility] Comment on above: Ordered: 06/29/2024 SURESWAB(R) ADVANCED VAGINITIS PLUS, TMA SURESWAB(R) ADVANCED VAGINITIS PLUS, TMA Pathology and Cytology Routine STD exposure Ordered: 02/20/2025 [facility] Work Phone: Comment on above: Ordered: 02/20/2025 Immunizations Immunization Date Immunization Notes Care Provider Ryne abrams 08-28-2002 influenza virus vacc ine, unspecified formulation Nom Nurse [facility] Payers Date Payer Category Payer Medicaid [place] [employer] [id number] 2024 Blue Cross Blue Shie ld Managed Care - PPO [id number] 2023 Medicaid [employer] [employer] [place] [id number] 2023-Present [address] [place] [address] [id number] 2023 Medicaid (Managed Care) [facility] MEDICAID [id number] 2021 Blue Cross Blue Shield [id number] 2021 Unknown BCBS BCBS xxxxxx [id number] 2021-Present [phone] [address] [place] [address] [id number] 2001 Unknown [id number] [id number]. 593 2001 Unknown [id number] 2.16.840.1.246229.3.579.2. 593 2001 Unknown [id number] 2.16.840.1.807051.3.579.2. 593 2001 Unknown [id number] 2.16.840.1.849966.3.579.2. 593 2001 Unknown [id number] 2.16.840.1.648082.3.579.2. 593 2001 Unknown [id number] 2.16.840.1.816169.3.579.2. 593 2001 Unknown [id number] 2.16.840.1.314645.3.579.2. 593 2001 Unknown [id number] 2.16.840.1.849271.3.579.2. 593 2001 Unknown [id number] 2.16.840.1.045324.3.579.2. 593 2001 Unknown [id number] 2.16.840.1.907706.3.579.2. 593 2001 Unknown [id number] 2.16.840.1.092215.3.579.2. 593 2001 Unknown [id number] 2.16.840.1.934673.3.579.2. 593 2001 Unknown [id number] 2.16.840.1.082341.3.579.2. 593 2001 Unknown [id number] 2.16.840.1.629817.3.579.2. 593 2001 Unknown [id number] 2.16.840.1.683928.3.579.2. 593 2001 Unknown [id number] 2.16.840.1.676674.3.579.2. 593 2001 Unknown [id number] 2.16.840.1.439831.3.579.2. 593 2001 Unknown [id number] 2.16.840.1.364815.3.579.2. 593 2001 Unknown [id number] 2.16.840.1.883703.3.579.2. 593 2001 Unknown [id number] 2.16.840.1.732190.3.579.2. 593 2001 Unknown [id number] 2.16.840.1.053317.3.579.2. 593 2001 Unknown [id number] 2.16.840.1.423277.3.579.2. 1286 2001 Unknown [id number] 2.16.840.1.759458.3.579.2. 1259 2001 Unknown [id number] 2.16.840.1.043317.3.579.2. 1259 2001 Unknown [id number] 2.16.840.1.683040.3.579.2. 9 2001 Unknown [id number] 2.16.840.1.076016.3.579.2. 9 2001 Unknown [id number] 2.16.840.1.741454.3.579.2. 1259 2001 Unknown [id number] 2.16.840.1.745912.3.579.2. 125 2001 Unknown [id number] 2.16.840.1.340079.3.579.2. 1259 2001 Unknown [id number] 2.16.840.1.927192.3.579.2. 1258 2001 Unknown [id number] 2.16.840.1.727402.3.579.2. 125 2001 Unknown [id number] 2.16.840.1.593449.3.579.2. 1258 2001 Unknown [id number] 2.16.840.1.792339.3.579.2. 1258 2001 Unknown [id number] 2.16.840.1.084816.3.579.2. 1259 1959 Self-pay 1959 Unknown [id number] 1959 Unknown [id number] Unknown [id number] 2.16.840.1.175261.3.579.2. 593 Unknown [id number] 2.16.840.1.601808.3.579.2. 531 Social History Date Type Detail Facility Start: 10-13-2023 End: 06-29-2024 Sex Assigned At [facility] [employer] Other Start: 2000 Sex Assigned At Female [facility] Start: 10-13-2023 End: 05-10-2025 Tobacco smoking status TXIS Never smoked tobacco [facility] Start: 06-29-2024 End: 04-30-2025 Alcoholic beverage intake Current drinker of alcohol (finding) [facility] Start: 10-13-2023 End: 06-29-2024 History of Social function [facility] Start: 05-24-2024 [facility] Start: 2000 Sex assigned at Not on file N [facility] Tobacco smoking stat [facility] Unknown if ever smoked [facility] Work Phone: Start: 04-29-2015 End: 08-11-2024 Sex Female (finding) [facility] Start: 05-10-2025 Alcoholic beverage intake Ex-drinker (finding) [facility] Unknown [facility] Medical Equipment Procedure Code Equipment Code Equipment Origin al Text Equipment Identifier Dates 1 strip by In Vi tro route Daily Use in the morning prior to breakfast, 1 hour after each meal for a total of 4times daily. [id number] Start: 05-08-2025 End: 06-07-2025 1 each by In Vit ro route Daily Use to check FSBS four times daily [id number] Start: 05-08-2025 End: 06-07-2025 Clinical Notes 12-26-2022 to 05-22-2025 Meghana Felder LPN - 05/22/2025 2:40 PM EDTTelephone Encounter - ILEANA Willams - 05/21/2025 4:35 PM EDTTelephone Encounter - ILEANA Willams - 05/21/2025 4:35 PM EDT Note Date & Type Note Facility 05-22-2025 History of Presen t illness Narrative Reason for Appointment: Patient ID: Vimal Funes is a 25 y.o. female who presents for Routine Visit Patient presents today for Return OB appointment. MEDICATIONS Current Outpatient Medications Medication Instructions Alcohol Swabs (Alcohol Prep Pad) 70 % pads 1 Pad, Topical, Daily, Use four times daily to check FSBS. Blood Glucose Monitoring Suppl ([employer] Glucometer) w/Device kit 1 kit, Does not [...] Medical History: Diagnosis Date Anemia Gestational diabetes ([facility]) History of blood transfusion Lead poisoning Miscarriage ([facility]) Nonsmoker Post depression HISTORY PAST MEDICAL HISTORY SOCIAL HISTORY Past Medical History: Diagnosis Date Anemia Gestational diabetes ([facility]) History of blood transfusion Lead poisoning Miscarriage ([facility]) Nonsmoker Post depression /anxiety [...] nursing note reviewed. Exam conducted with a child welfare director present. Vitals: Estimated body mass index is 31.49 kg/m as calculated from the following: Height as of 23: 5' 3 . Weight as of this encounter: 177 lb 12 oz. BP: (!) 138/92 Patient's last menstrual period was 10/15/2024 (exact date). ASSESSMENT & PLAN ICD-10-CM 1. Third trimester ([facility]) Z34.93 POCT urinalysis dipstick manually resulted 2. 31 weeks gestation of ([facility]) Z3A.31 Return OB: Patient presents today [...] urine protein. Pt calling in sugars to [facility]. Orders Placed This Encounter Procedures POCT urinalysis dipstick manually resulted Follow Up: Patient is to return to office in 2 week for routine OB appointment. Documented by Meghana Felder LPN on behalf of: Jose Rodriguez DO documented in this encounter [facility] 05-21-2025 Miscellaneous Notes Called regarding blood sugar logs from 05/14/25-05/19/25. Vimal had three elevated fasting blood sugars and wonders what she can do to get them down. She has tried the [employer] shakes. Suggested to have closer to a 30 gram snack that has more fiber and 10-15 grams of protein. Encouraged to refer to the snack list given in class and those designated with an asterisk. We discussed not going greater than 10 hours between her snack in the evening and checking her blood sugar in the morning and being active for 20-30 minutes after supper. Vimal says that gives her some things to work on and she will send in blood sugars next week. documented in this encounter [facility] 05-21-2025 Telephone encounter Note Called regarding blood sugar logs from 05/14/25-05/19/25. Vimal had three elevated fasting blood sugars and wonders what she can do to get them down. She has tried the [employer] shakes. Suggested to have closer to a 30 gram snack that has more fiber and 10-15 grams of protein. Encouraged to refer to the snack list given in class and those designated with an asterisk. We discussed not going greater than 10 hours between her snack in the evening and checking her blood sugar in the morning and being active for 20-30 minutes after supper. Vimal says that gives her some things to work on and she will send in blood sugars next week. [facility] Work Phone: 05-14-2025 History of Presen t illness Narrative Reason for Appointment: Patient ID: Vimal Funes is a 25 y.o. female who presents for Routine Visit Patient presents today for Return OB appointment. MEDICATIONS Current Outpatient Medications Medication Instructions Alcohol Swabs (Alcohol Prep Pad) 70 % pads 1 Pad, Topical, Daily, Use four times daily to check FSBS. Blood Glucose Monitoring Suppl ([employer] Glucometer) w/Device kit 1 kit, Does not [...] History of blood transfusion Lead poisoning Miscarriage ([facility]) Nonsmoker Post depression HISTORY PAST MEDICAL HISTORY SOCIAL HISTORY Past Medical History: Diagnosis Date Anemia Gestational diabetes ([facility]) History of blood transfusion Lead poisoning Miscarriage ([facility]) Nonsmoker Post depression /anxiety Social History [...] nursing note reviewed. Exam conducted with a child welfare director present. Vitals: Estimated body mass index is 31.35 kg/m as calculated from the following: Height as of 01/06/23: 5' 3 . Weight as of this encounter: 177 lb. BP: 140/90 Patient's last menstrual period was 10/15/2024 (exact date). ASSESSMENT & PLAN ICD-10-CM 1. Third trimester ([facility]) Z34.93 POCT urinalysis dipstick manually resulted 2. 30 weeks gestation of ([facility]) Z3A.30 POCT urinalysis dipstick manually resulted 3. induced hypertension, antepartum ([facility]) O13.9 Creatinine Protein, urine, 24 hour Pt [...] Jose Rodriguez DO documented in this encounter [facility] 05-13-2025 Group counseling note Patient: Vimal [...] Face to face time was 110 minutes. [email or web address] Work Phone: 05-13-2025 Miscellaneous Notes Patient: Vimal [...] was 110 minutes. documented in this encounter [facility] 05-07-2025 Telephone encounter Note Called pt to let her know that she did not pass her 3 hour glucose test and that I would be sending in supplies and referring her to diabetic education. [facility] 05-07-2025 Miscellaneous Notes Called pt to let her know that she did not pass her 3 hour glucose test and that I would be sending in supplies and referring her to diabetic education. documented in this encounter [facility] 04-30-2025 History of Presen t [...] resulted 2. -induced hypertension in third trimester ([facility]) O13.3 US biophysical profile w non stress test US OB follow up transabdominal approach labetalol (Normodyne) 300 MG tablet 3. Gestational diabetes mellitus (GDM) in third trimester, gestational diabetes method of control unspecified ([facility]) O24.419 US biophysical profile [...] of: TRUE Argueta documented in this encounter [facility] 04-25-2025 History of Presen t [...] Medical History: Diagnosis Date Anemia Gestational diabetes ([facility]) History of blood transfusion Lead poisoning Miscarriage ([facility]) Nonsmoker Post depression HISTORY PAST MEDICAL HISTORY SOCIAL HISTORY Past Medical History: Diagnosis Date Anemia Gestational diabetes ([facility]) History of blood transfusion Lead poisoning Miscarriage ([facility]) Nonsmoker Post depression /anxiety Social History [...] ASSESSMENT & PLAN ICD-10-CM 1. Second trimester ([facility]) Z34.92 2. 27 weeks gestation of ([facility]) Z3A.27 Patient presents for BP check. BP elevated today despite taking 100mg bid labetolol daily. We will increase to 200mg bid daily. Patient given labs and instructed to follow up with OB should she develop headache or vision changes Pt will follow up with DR Rodriguez next week Documented by TRUE Argueta on behalf of: TRUE Argueta documented in this encounter [facility] 04-11-2025 History of Presen t [...] History of blood transfusion Lead poisoning Miscarriage ([facility]) Nonsmoker Post depression HISTORY PAST MEDICAL [...] ASSESSMENT & PLAN ICD-10-CM 1. Second trimester ([facility]) Z34.92 POCT urinalysis dipstick manually resulted 2. 25 weeks gestation of ([facility]) Z3A.25 3. Diabetes mellitus screening Z13.1 [...] of: TRUE Argueta documented in this encounter [facility] 03-14-2025 History of Presen t [...] Medical History: Diagnosis Date Anemia Gestational diabetes ([facility]) History of blood transfusion Lead poisoning Miscarriage ([facility]) Nonsmoker Post depression HISTORY PAST MEDICAL HISTORY SOCIAL HISTORY Past Medical History: Diagnosis Date Anemia Gestational diabetes ([facility]) History of blood transfusion Lead poisoning Miscarriage ([facility]) Nonsmoker Post depression /anxiety Social History Tobacco [...] nursing note reviewed. Exam conducted with a child welfare director present. Vitals: Estimated body mass index is 29.23 kg/m as calculated from the following: Height as of 01/06/23: 5' 3 . Weight as of this encounter: 165 lb. BP: 112/76 Patient's last menstrual period was 10/15/2024 (exact date). ASSESSMENT & PLAN ICD-10-CM 1. Second trimester ([facility]) Z34.92 POCT urinalysis dipstick manually resulted 2. 21 weeks gestation of ([facility]) Z3A.21 Patient presents today for a routine obstetrics appointment. Patient is currently 21w3d with a Estimated Date of Delivery: 07/22/25. Patient has no complaints at this time and will return to clinic in 4 weeks. Documented by Diamond Borja LPN on behalf of: Jose Rodriguez DO documented in this encounter [facility] 02-20-2025 History of Presen t [...] nursing note reviewed. Exam conducted with a child welfare director present. Vitals: Estimated body mass index is [...] of: TRUE Argueta documented in this encounter [facility] 01-14-2025 History of Presen t [...] nursing note reviewed. Exam conducted with a child welfare director present. Vitals: Estimated body mass index is [...] [facility]. Patient has been consulted regarding any [...] Jose Rodriguez DO documented in this encounter [facility] 08-20-2024 History of Presen t [...] having a D&C Hysteroscopy performed at [facility] with Dr. Rodriguez. Pathology results was reviewed with the patient in great detail and all restrictions have been lifted. Follow Up: Patient is to return to the office for annual exam unless needed otherwise. Documented by TRUE Argueta on behalf of: TRUE Argueta documented in this encounter [facility] 08-06-2024 History of Presen t [...] nursing note reviewed. Exam conducted with a child welfare director present. Vitals: Estimated body mass index is [...] vaginal bleeding. Patient to discuss date with Television Mechanic prior to leaving. Patient is able to obtain work note for the week and if longer is needed she will reach out to office. Documented by Diamond Borja LPN on behalf of: Jose Rodriguez DO documented in this encounter [facility] 06-29-2024 History of Presen t [...] blood transfusion Lead poisoning Nonsmoker Post depression ([facility]) Family History Problem Relation Name Age [...] by: Whitney Peacock documented in this encounter [facility] 12-26-2022 Evaluation note Encounter Date [...] appointment to be seen soon as possible [facility] Other Evaluation noteNo assessment information available [facility] Work Phone: evaluation note* Diagnosis Missed menses , unspecified gestational age Encounter for supervision of normal first in first trimester Nausea Nausea alone 7 weeks gestation of [facility] Diagnosis Miscarriage Unspecified spontaneous without mention of complication [facility] Diagnosis Postoperative examination Follow-up examination, following unspecified surgery [facility] Diagnosis 13 weeks gestation of Second trimester state, incidental [facility] Diagnosis Screening, , for anatomic survey Encounter for anatomic survey Well woman exam with routine gynecological exam Routine gynecological examination STD exposure Second trimester state, incidental 18 weeks gestation of Urinary frequency [facility]* Diagnosis Second trimester ([facility]) state, incidental 21 weeks gestation of ([facility]) [facility] Diagnosis Second trimester ([facility]) state, incidental 25 weeks gestation of ([facility]) Diabetes mellitus screening Screening for diabetes mellitus Elevated BP without diagnosis of hypertension [facility] Diagnosis Second trimester ([facility]) state, incidental [...] glucose tolerance test [facility] Diagnosis Gestational diabetes mellitus (GDM) in third trimester, gestational diabetes method of control unspecified [facility] Diagnosis Third trimester ([facility]) state, incidental 30 weeks gestation of ([facility]) induced hypertension, antepartum ([facility]) Transient hypertension of , antepartum [facility]* Diagnosis Third trimester ([facility]) state, incidental 31 weeks gestation of ([facility]) [facility] HealthcareInstructionsNot on filedocumented in this encounterProMedioh Health SystemInstructionsNot on filedocumented in this encounterProAs[facility] SystemInstructionsNot on filedocumented in this encounterC[facility] Summary Purpose Family History No Family History Records FoundNo Family History Records FoundNo Family History Records FoundNo Family History Records FoundNo Family History Records Found Advance Directives Advance Directive Response Recorded Date/ Time Advance Directives No December 27 23 6:21am Additional Source Comments INFORMATION SOURCE (unrecogn ized section and content) DATE CREATED AUTHOR 09/24/2021 [facility] DATE CREATED AUTHOR AUTHOR'S ORGANIZ ATION 12/07/2022 [facility] DATE CREATED AUTHOR AUTHOR'S ORGANIZ ATION 08/15/2024 [facility] DATE CREATED AUTHOR AUTHOR'S ORGANIZ ATION 05/14/2025 [facility] DATE CREATED AUTHOR AUTHOR'S ORGANIZ ATION 05/16/2025 [facility] Special[facility] EPIC REASON FOR VISIT (unrecogniz ed section and content) Reason Comments Initial Visit Reason Comments Miscarriage Reason Comments Post-op Visit Reason Comments Routine Visit Reason Comments Blood Pressure Check Reason Comments Gestational Diabetes Specialty Diagnoses / Procedures Referred By Contac t Referred To Contact Maternal and Medicine Diagnoses Gestational diabetes mellitus (GDM) in third trimester, gestational diabetes method of control unspecified Jose Rodriguez DO [address] [place] [address] [place] [address] Phone: tel: fax: Maternal- Medicine at [facility] [address] [place] [address] Phone: tel: fax: Referral ID Status Reason Start Date Expiration Date Visits Requested Visits Authorized [id number] Pending Review Specialty Services Required 05/09/2025 05/09/2026 1 1 Care Teams (unrecognized sec tion and content) Team Status: Inactive Member Role Status Dates Jennifer Huston NP-C Attending Provider Active Pulp Beater Relationship Specialty Start Date End Date Vaishali Zapata MD [address] [place] [address] PCP - General Family Medicine 02/04/23 Pulp Beater Relationship Specialty Start Date End Date Vaishali Zapaat MD [address] [place] [address] PCP - General Family Medicine 02/04/23 Team Status: Active Member Role Status Dates PHYSICIAN NO FAMILY Primary Care Provider Active Team Status: Inactive Member Role Status Dates PHYSICIAN NO FAMILY Primary Care Provider Active Start: August 10, 2024 End: August 10, 2024 Jose Rodriguez DO Attending Provider Active Start : August 10, 2024 End: August 10, 2024 Pulp Beater Relationship Specialty Start Date End Date Unallocated, [place] [address] PCP - General Family Medicine 08/03/24 Pulp Beater Relationship Specialty Start Date End Date Unallocated, [place] [address] PCP - General Family Medicine 08/03/24 Pulp Beater Relationship Specialty Start Date End Date Unallocated, [place] [address] PCP - General Family Medicine 08/03/24 Pulp Beater Relationship Specialty Start Date End Date Unallocated, Arjun Vo MD [facility] [place] [address] PCP - General Family Medicine 08/03/24 Pulp Beater Relationship Specialty Start Date End Date Unallocated, Arjun Vo MD [facility] [place] [address] PCP - General Family Medicine 08/03/24 Pulp Beater Relationship Specialty Start Date End Date Unallocated, Arjun Vo MD [facility] [address] [place] [address] PCP - General Family Medicine 08/03/24 Pulp Beater Relationship Specialty Start Date End Date Unallocated, Arjun Vo MD [facility] [place] [address] PCP - General Family Medicine 08/03/24 Pulp Beater Relationship Specialty Start Date End Date Unallocated, Arjun Vo MD [facility] [place] [address] PCP - General Family Medicine 08/03/24 Pulp Beater Relationship Specialty Start Date End Date Unallocated, Arjun Vo MD [facility] [place] [address] PCP - General Family Medicine 08/03/24 Pulp Beater Relationship Specialty Start Date End Date Unallocated, Arjun Vo MD [facility] [place] [address] PCP - General Family Medicine 08/03/24 Pulp Beater Relationship Specialty Start Date End Date Unallocated, [place] [address] PCP - General Family Medicine 08/03/24 Pulp Beater Relationship Specialty Start Date End Date Unallocated, Arjun Vo MD [address] [place] [address] PCP - General Family Medicine 08/03/24 Pulp Beater Relationship Specialty Start Date End Date Unallocated, Arjun Vo MD [address] [place] [address] PCP - General Family Medicine 08/03/24 Pulp Beater Relationship Specialty Start Date End Date Unallocated, Arjun Vo MD [address] [place] [address] PCP - General Family Medicine 08/03/24 Goals [...] BE BASED ON THE PRIMARY CLINICAL RECORDS. [employer] [facility]. provides no warranty or guarantee of the accuracy or completeness of information in this document.
== END 2025-05-22 16:45 | disposition home or self-care (01) ==
LOC: FBCO 15:41 → FBC 15:44
PROVIDERS: PCP Nurse Practitioner Family; Visit Provider Obstetrics & Gynecology
DX: O16.3 Unspecified maternal hypertension, third trimester (principal); Z3A.31 31 weeks gestation of pregnancy
CPT/HCPCS: 59025

== ENCOUNTER 2025-05-25 07:58 | Outpatient (OUT) | payer BC, OTHER, SELFPAY ==
--- OUTSIDE RECORDS SUMMARY | 2024-06-05 04:30 | XMS_ITS ---
Author Organization [facility] [place] Address [address] [place] [address] Care Team Providers Care Registered Mail Clerk Name Role Phone Jennifer Butts Primary [...] 06/05/2024 Encounters Encounter Location Date Provider Diagnosis [facility] [address] [place] [address] 06/05/2024 Jennifer Butts Z33.1 and Wellness examination [...] Amber PIZANO MDOB: [birth year] (24 yo F)Acc No.[id number]:06/05/2024 New Patient Patient: Amber MADERA Provider: Lashawn Butts ([facility]), MARINE ELECTRONICS TECHNICIAN :2000 A ge:24 Y S ex:Female Date:06/05/2024 Address:[address] [place] [address] Check In:08:08 AM ESTCheck O ut:08:44 AM [...] 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 (Check Out) true * Provider: Lashawn Butts ([facility]), MARINE ELECTRONICS TECHNICIAN Date: 0 06/05/2024 Generated for Printi ng/Faxing/eTransmitting on: 0 05/25/2025 07:59 AM EDT History and Physical Notes * HPI (History of Present Illness) Category Sub-Category Detail Notes Category Not es General OBGYN Michael , have 2 year old 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
--- OUTSIDE RECORDS SUMMARY | 2025-05-13 13:30 | XMS_ITS | Encounter Summary ---
Author Organization [facility] [employer] [facility] tem Address [facility]-[id number] [address] [place] [address] Care Team Providers Care Foreign Exchange Position Clerk Name Role Phone Unavailable Primary Care Provider Unavailabl e Reason for Visit * Reason Comments Gestational Diabetes * Consultation (Routine) - Pending Review Specialty Diagnoses / Procedures Referred By Contac t Referred To Contact Maternal and Medicine Diagnoses Gestational diabetes mellitus (GDM) in third trimester, gestational diabetes method of control unspecified Jose Rodriguez, DO [address] [place] [address] [place] [address] Phone: tel: fax: Maternal- Medicine at [facility] [address] [place] [address] Phone: tel: fax: Referral ID Status Reason Start Date Expiration Date Visits Requested Visits Authorized [id number] Pending Review Specialty Services Required 05/09/2025 05/09/2026 1 1 Encounter Details Date Type Department Care Team (Late st Contact Info) Description 05/13/2025 1:30 PM EDT Support Visit Maternal- Medicine at [facility] [address] [place] [address] Marjorie Rico, RN [address] [facility] [address] [phone] Xenia Rayo, ALEC [address], [address] [place] [phone] Gestational diabetes mellitus (GDM) in third trimester, gestational diabetes method of control unspecified Social History Tobacco Use Types Packs/Day Years Used Date Smoking Tobacco: Never Alcohol Use Standard Drinks/Week Comments Not Currently [...] Sign Reading Time Taken Comments Blood Pressure - - Pulse - - Temperature - - Respiratory Rate - - Oxygen Saturation - - Inhaled Oxygen Concentration - - Weight 79.8 kg (176 lb) 05/13/2025 4:11 PM EDT Height - - Body Mass Index - - documented in this encounter Miscellaneous Notes * Group Note - Xenia Rayo RD - 05/13/2025 1:30 PM EDT Patient: Amber Funes Date: 05/13/2025 Vitals: 05/13/25 1611 Weight: 79.8 kg (176 lb) Patient present for diabetes education group class per doctor order secondary to diagnosis of GDM and/or abnormal glucose tolerance. Food recall suggests patient typically consumes a diet of mainly healthy choices. Pt has gained 20 # to date. Weight gain goal is 15-25#. Pt appears willing to make changes. Nutrition diagnosis: inconsistent carbohydrate intake related to lack of nutrition knowledge as evidenced by food log. Instructed pt in 1900 kcal meal plan of 3 meals and 3 snacks, carbohydrate counting, label reading, dining out, and portion control. Energy content of meal plan to be adjusted as needed based on patient's blood glucose control and weight gain/loss. Discussed foods rich in iron and calcium. Encouraged pt to limit dining out and measure carbohydrates for 2 days. To send 2 day food log and blood glucoses. Please refer to health habits for other goals. Face to face time was 110 minutes. documented in this encounter Plan of Treatment Upcoming Encounters Date Type Department Care Team (Late st Contact Info) Description 06/04/2025 1:00 PM EDT Appointment [facility] - Ultrasound [address] [place] [address] Jose Rodriguez, DO [address] [place] [address] Josué [place] [address] documented as of this encounter Procedures Procedure Name Priority Date/Time Associated Diagnosis Comments GLUCOSE RANDOM OR FASTING Routine 05/13/2025 Gestational diabetes mellitus (GDM) in third trimester, gestational diabetes method of control unspecified documented in this encounter Results * Glucose random or fasting- POCT (05/13/2025) External Glucose Fasting Or Random (Fbs) 80 MANUALLY TRANSCRIBED RESULTS Blood Venous blood / Unknown 05/13/2025 us Wendy Miranda MD LAB BLOOD ORDERABLES Final Resul t MANUALLY TRANSCRIBED RESULTS documented in this encounter Visit Diagnoses Diagnosis Gestational diabetes mellitus (GDM) in third trimester, gestational diabetes method of control unspecified documented in this encounter
--- OUTSIDE RECORDS SUMMARY | 2025-05-14 14:40 | XMS_ITS | Encounter Summary ---
Author Organization [facility] Address [address] [place] [address] Care Team Providers Care Parts Counter Representative Name Role Phone Unallocated, Noms Provider Primary Care Provi krissy Reason for Visit * Reason Comments Routine Visit Encounter Details Date Type Department Care Team (Late st Contact Info) Description 05/14/2025 2:40 PM EDT Routine [facility] [place] [facility] [address] [place] [address] Jose Rodriguez DO [address] Josué [place], [facility] Third trimester ([facility] 30 weeks gestation of ([facility]); induced hypertension, antepartum ([facility]) Social History Tobacco Use Types Packs/Day Years [...] this encounter Progress Notes * Meghana Felder, UI PROGRAMMER - 05/14/2025 2:40 PM EDT Reason for Appointment: Patient ID: Amber Funes is a 25 y.o. female who presents for Routine Visit Patient presents today for Return OB appointment. MEDICATIONS Current Outpatient Medications Medication Instructions Alcohol Swabs (Alcohol Prep Pad) 70 % pads 1 Pad, Topical, Daily, Use four times daily to check FSBS. Blood Glucose Monitoring Suppl ([employer] Glucometer) w/Device kit 1 kit, Does not [...] nursing note reviewed. Exam conducted with a patients transporter present. Vitals: Estimated body mass index is 31.35 kg/m?? as calculated from the following: Height as of 01/06/23: 5' 3 . Weight as of this encounter: 177 lb. BP: 140/90 Patient's last menstrual period was 10/15/2024 (exact date). ASSESSMENT & PLAN ICD-10-CM 1. Third trimester ([facility]) Z34.93 POCT urinalysis dipstick manually resulted 2. 30 weeks gestation of ([facility]) Z3A.30 POCT urinalysis dipstick manually resulted 3. induced hypertension, antepartum ([facility]) O13.9 Creatinine Protein, urine, 24 hour Pt [...] Care Team (Late st Contact Info) Description 05/28/2025 10:30 AM EDT Routine [facility] [address] [place] [id number] Jose Rodriguez DO [address] [place] [address] Scheduled Orders Name Type Priority Associated Diagnoses [...] antepartum documented in this encounter Care Teams Parts Counter Representative Relationship Specialty Start Date End Date Unallocated, Noms Provider, [address] [place] [address] PCP - General Family Medicine 08/03/24 documented as of this encounter
--- OUTSIDE RECORDS SUMMARY | 2025-05-22 14:40 | XMS_ITS | Encounter Summary ---
Author Organization [facility] Address [address] [place] [address] Care Team Providers Care Dip Lube Operator Name Role Phone Unallocated, Noms Provider Primary Care Provi krissy Reason for Visit * Reason Comments Routine Visit Encounter Details Date Type Department Care Team (Late st Contact Info) Description 05/22/2025 2:40 PM EDT Routine ARJUN Morataya OBGYN [address] [place] [address] Jose Rodriguez DO [address] [facility] [address] Josué Morataya, [facility]11 Third trimester ([facility]); 31 weeks gestation of ([facility]) Social History Tobacco Use Types Packs/Day Years [...] Sign Reading Time Taken Comments Blood Pressure 138/92 05/22/2025 3:02 PM EDT Pulse - - Temperature - - Respiratory Rate - - Oxygen Saturation - - Inhaled Oxygen Concentration - - Weight 80.6 kg (177 lb 12 oz) 05/22/2025 3:02 PM EDT Height - - Body Mass Index 31.49 01/06/2023 12:00 PM EDT documented in this encounter Progress Notes * Meghana Felder, RECORDS MANAGEMENT MANAGER - 05/22/2025 2:40 PM EDT Reason for Appointment: Patient ID: Amber Funes is a 25 y.o. female who presents for Routine Visit Patient presents today for Return OB appointment. MEDICATIONS Current Outpatient Medications Medication Instructions Alcohol Swabs (Alcohol Prep Pad) 70 % pads 1 Pad, Topical, Daily, Use four times daily to check FSBS. Blood Glucose Monitoring Suppl (Invisible Sentinel Glucometer) w/Device kit 1 kit, Does not [...] nursing note reviewed. Exam conducted with a rubber boots and shoes repairer present. Vitals: Estimated body mass index is 31.49 kg/m?? as calculated from the following: Height as of 01/06/23: 5' 3 . Weight as of this encounter: 177 lb 12 oz. BP: (!) 138/92 Patient's last menstrual period was 10/15/2024 (exact date). ASSESSMENT & PLAN ICD-10-CM 1. Third trimester ([facility]) Z34.93 POCT urinalysis dipstick manually resulted 2. 31 weeks gestation of ([facility]) Z3A.31 Return OB: Patient presents today for a routine obstetrics appointment. Patient is currently 31w2d . Patient states she is doing well but has complaints of being tired due to current . Patient has verbalizes frequent movement. labor precautions was discussed/given and patient was instructed to perform kick counts three times a day. Reviewed 24 hour urine protein. Pt calling in sugars to [facility]. Orders Placed This Encounter Procedures POCT urinalysis dipstick manually resulted Follow Up: Patient is to return to office in 2 week for routine OB appointment. Documented by Meghana Felder LPN on behalf of: Jose Rodriguez DO documented in this encounter Plan of Treatment Upcoming Encounters Date Type Department Care Team (Late st Contact Info) Description 05/28/2025 10:30 AM EDT Routine ARJUN Morataya OBGYN [address] [place] [address] Jose Rodriguez DO [address] [facility] [address] [place] [place] [address] documented as of this encounter Procedures Procedure Name Priority Date/Time Associated Diagnosis Comments POCT URINALYSIS DIPSTICK Routine 05/22/2025 3:12 PM EDT Third trimester ([facility]) documented in this encounter Results * POCT urinalysis dipstick manually resulted (05/22/2025 3:12 PM EDT) Color, UA Yellow Clarity, [...] Nitrite, UA Negative Negative - Positive Urine 05/22/2025 3:12 PM EDT Jose Rodriguez DO POINT OF CARE TEST ENTER/EDIT OR DERABLES Final Result documented in this encounter Visit Diagnoses Diagnosis Third trimester ([facility]) state, incidental 31 weeks gestation of ([facility] documented in this encounter Care Teams Dip Lube Operator Relationship Specialty Start Date End Date Unallocated, Noms Provider, [address] [place] [address] PCP - General Family Medicine 08/03/24 documented as of this encounter
--- NOTE | 2025-05-25 | US_ITS ---
[address] [address] Patient Name: VIMAL PIZANO MRN: [id number] date: 2000 Sex: F Assigned Patient Location: [facility] Current Patient Location: Accession/Order Number: [id number] Exam Date: 05/25/2025 08:21 Report Date: 05/25/2025 11:13 At the request of: COLLIN LEACH Procedure: US OB BPP w non-stress US OB BPP w non-stress 05/25/2025 8:43 AM SIGNS AND SYMPTOMS: ^GESTATIONAL DIABETES MELLITUS O24.419 PROTOCOL: Transabdominal sonographic imaging of the gravid uterus COMPARISON: None FINDINGS: heart rate: 126 bpm. Amniotic fluid index: 10.63 cm. The deepest vertical pocket measures 4.78 cm. Estimated gestational age: 31 weeks 5 days Biophysical profile: breathing movements: 2/2 Gross body movements: 2/2 tone: 2/2 Amniotic fluid volume: 2/2 US/US OB BPP w non-stress IMPRESSION: Biophysical profile: 05/03 Impression dictated by: Heriberto Acharya M.D. 05/25/2025 11:13 AM Dictation Location: Medical Datas[employer] InternationalPULLMAN REGIONAL HOSPITALOptensity Electronically authenticated by: [id number] Y Date: 05/25/2025 11:13
--- OUTSIDE RECORDS SUMMARY | 2025-05-25 08:00 | XMS_ITS | Encounter Summary ---
Author Organization [facility] tem Address [facility] [id number] [address] [place] [address] Care Team Providers Care Engine Oiler Name Role Phone Unavailable Primary Care Provider [...] Info) Description 06/04/2025 1:00 PM EDT Appointment [facility] - Ultrasound [address] [place] [address] Jose Rodriguez, DO [address] [place] [place] [address] documented as of this encounter Visit Diagnoses Not on filedocumented in this encounter
--- OUTSIDE RECORDS SUMMARY | 2025-05-25 08:00 | XMS_ITS | Encounter Summary ---
Author Organization [facility] Address [address] [place] [address] Care Team Providers Care Kapok Machine Operator Name Role Phone Unallocated, Noms Provider Primary Care Provi krissy Encounter Details Date Type Department Care Team (Late st Contact Info) Description 05/07/2025 Results Follow-Up ARJUN [place] OBGYKeegan [address] [facility] [address] [address] Glenna Butler LPN [address] [place] [address] ALL CBC WITH AUTO DIFF, [...] AM EDT Routine ARJUN [place] OBGYN [address] [facility] [place] [id number] Jose Rodriguez DO [address] [facility] [address] [place] [place] [address] documented as of this encounter Visit Diagnoses Not on filedocumented in this encounter Care Teams Kapok Machine Operator Relationship Specialty Start Date End Date Unallocated, Arjun Vo MD [address] [place] [address] PCP - General Family Medicine 08/03/24 documented as of this encounter
--- OUTSIDE RECORDS SUMMARY | 2025-05-25 08:00 | XMS_ITS | Encounter Summary ---
Author Organization [facility] Address [address] [place] [address] Care Team Providers Care Resident Services Director Name Role Phone Unallocated, Noms Provider Primary Care Provi krissy Encounter Details Date Type Department Care Team (Late st Contact Info) Description 05/18/2025 Clinisync Result Encounter [facility] External Department Unsolicited Collin Leach PA [address] [place], [id number] Social History Tobacco Use Types Packs/Day Years [...] AM EDT Routine [facility] [address] [place] [id number] Jose Rodriguez DO [address] [facility] [address] [place], [place] [id number] documented as of this encounter Procedures Procedure Name Priority Date/Time Associated Diagnosis Comments US OB BPP W NON-STRESS 05/18/2025 5:08 PM EDT documented in this encounter Results * US OB BPP W NON-STRESS (05/18/2025 5:08 PM EDT) Anatomical Region Laterality Modality Other 05/18/2025 5:08 PM EDT Narrative 05/18/2025 8:17 [place] [address] Ultrasound Report Signed Patient: VIMAL PIZANO MR#: [id number] : 2000 Acct:[id number] Age/Sex: 25 / F ADM Date: 05/18/25 Loc: US Attending Dr: Collin Leach Ordering Physician: Collin Leach Date of Service: 05/18/25 Procedure(s): US OB BPP w non-stress Accession Number(s): [id number] cc: Collin Leach; LUIS SEE [address] [address] Patient Name: VIMAL PIZANO MRN: [id number] date: 2000 Sex: F Assigned Patient Location: [facility] Current Patient Location: Accession/Order Number: [id number] Exam Date: 05/18/2025 11:16 Report Date: 05/18/2025 [...] Acharya M.D. 05/18/2025 5:08 PM Dictation Location: [place] [address] Electronically authenticated by: [id number] Y Date: 05/18/2025 17:08 Dictated By: Heriberto Acharya M.D. Signed By: 05/18/252016 DD/ 07 TD/TT: Marketing Intern: Procedure Note Radiology, Radiologist, MD - 05/18/2025 [place] [address] Ultrasound Report Signed Patient: VIMAL PIZANO MMR#: [id number] : 2000Acct:[id number] Age/Sex: 25 / FADM Date: 05/18/25 Loc: US Attending Dr: Collin Leach Ordering Physician: Collin Leach Date of Service: 05/18/25 Procedure(s): US OB BPP w non-stress Accession Number(s): [id number] cc: Collin Leach; LUIS SEE [place] [id number] Patient Name: VIMAL PIZANO MRN: [id number] date: 2000 Sex: F Assigned Patient Location: [facility] Current Patient Location: Accession/Order Number: [id number] Exam Date: 05/18/2025 11:16 Report Date: 05/18/2025 [...] Acharya M.D. 05/18/2025 5:08 PM Dictation Location: [place] [address] Electronically authenticated by: [id number] Y Date: 7:08 Dictated By: Heriberto Acharya M.D. Signed By:05/18/252016 DD/ 170 TD/TT: Marketing Intern: Collin [facility] Final Result documented in this encounter Visit Diagnoses Not on filedocumented in this encounter Care Teams Resident Services Director Relationship Specialty Start Date End Date Unallocated, Noms Provider, [address] [place] [address] PCP - General Family Medicine 08/03/24 documented as of this encounter
--- OUTSIDE RECORDS SUMMARY | 2025-05-25 08:00 | XMS_ITS | Encounter Summary ---
Author Organization [facility] Address [address] [place] [address] Care Team Providers Care Business Mail Entry Clerk Name Role Phone Vaishali Zapata MD Primary Care Provider Bipin cheng Unallocated, Noms Provider Primary Care Provi krissy Encounter Details Date Type Department Care Team (Late st Contact Info) Description 08/02/2024 Abstract ARJUN PANG [address] [place] [address] Jose Rodriguez DO [address] [place], [place] [address] Social History Tobacco Use Types Packs/Day Years [...] Department Care Team (Late Contact Info) Description 05/28/2025 10:30 AM EDT Routine ARJUN PANG [address] [place] [address] Jose Rodriguez DO [address] [place], [facility] documented as of this encounter Visit Diagnoses Not on filedocumented in this encounter Care Teams Business Mail Entry Clerk Relationship Specialty Start Date End Date Vaishali Zapata MD [address] [place] [address] PCP - General Family Medicine 02/04/23 08/02/24 Unallocated, Noms Provider, [address] [place] [address] PCP - General Family Medicine 08/03/24 documented as of this encounter
--- OUTSIDE RECORDS SUMMARY | 2025-05-25 08:00 | XMS_ITS | Clinical Summary ---
Author Organization [facility] Address [address] [place] [address] Care Team Providers Care Straight Truck Driver Name Role Phone Unallocated, Noms Provider [...] tablet 04/30/20 26 Active Lancets Ultra Thin miscIndications:G estational diabetes mellitus (GDM), antepartum, gestational diabetes method of control unspecified (HHS-HCC),Elevate d glucose tolerance test 1 each by In Vitro route Daily Use to check FSBS four times daily 150 each 3 5 06/07/20 25 Active Alcohol Swabs (Alcohol Prep Pad) 70 % padsIndications:G estational diabetes mellitus (GDM), antepartum, gestational diabetes method of control unspecified ([facility]),Elevate d glucose tolerance test Apply 1 Pad topically Daily Use four times daily to check FSBS. 150 each 3 5 Active Glucose Blood (Blood Glucose Test) stripIndications: Gestational diabetes mellitus (GDM), antepartum, gestational diabetes method of control unspecified ([facility]HS-HCC),Elevate d glucose tolerance test 1 strip by In Vitro route Daily Use in the morning prior to breakfast, 1 hour after each meal for a total of 4times daily. 150 strip 3 5 06/07/20 25 Active Blood Glucose Monitoring Suppl (D-Care Glucometer) w/Device kitIndications:Ge stational diabetes mellitus (GDM), antepartum, gestational diabetes method of control unspecified ([facility]),Elevate d glucose tolerance test 1 kit Daily Use four times daily to check FSBS. In the morning prior to breakfast & 1 hour after each meal for a total of 4times daily. 1 kit 5 05/08/20 26 Active Encounters Date Type Department Care Team Description 05/22/2025 2:40 PM EDT Routine [facility] [place] [address] Mackenzie Rodriguez, DO Third trimester ([facility]); 31 weeks gestation of ([facility]) 05/22/2025 Bamboo flowsheet [facility] [address]ANG [address] [facility] [place] [address] Mackenzie Rodriguez, 05/20/2025 Clinisync Result Encounter NOMS External Department Unsolicited Mackenzie Rodriguez, 05/18/2025 Clinisync Result Encounter NOMS External Department Unsolicited Rossana Leach PA 05/18/2025 Clinisync Result Encounter NOMS External Department Unsolicited Mackenzie Rodriguez, 05/14/2025 2:40 PM [place] [address] Mackenzie Rodriguez, DO Third trimester ([facility]); 30 weeks gestation of ([facility]); induced hypertension, antepartum ([facility]) 05/14/2025 [place] [address] Mackenzie Rodriguez, 05/11/2025 Clinisync Result Encounter NOMS External Department Unsolicited Rossana Leach PA 05/08/2025 [place] [phone] Mackenzie Rodriguez, 05/07/2025 [place] [address] Glenna Butler, MARILU ALL CBC WITH AUTO DIFF, SRMCOH PROTHROMBIN TIME INR W/O COUM, [facility] APTT, Additional followed-up results: 6 05/06/2025 Clinisync Result Encounter NOMS External Department Unsolicited Rossana Leach PA 05/04/2025 Clinisync Result Encounter NOMS External Department Unsolicited Rossana Leach PA 05/04/2025 Clinisync Result Encounter NOMS External Department Unsolicited Rossana Leach PA 05/04/2025 [place] [phone] Mackenzie Rodriguez, 05/04/2025 Clinisync Result Encounter NOMS External Department Unsolicited Rossana Leach PA 04/30/2025 10:50 AM [place] [phone] Rossana Leach PA BP check; -induced hypertension in third trimester ([facility]); Gestational diabetes mellitus (GDM) in third trimester, gestational diabetes method of control unspecified ([facility]) 04/30/2025 Bamboo flowsheet [facility] [address] [place] [address] Rossana Leach PA 04/29/2025 Telephone [facility] [address] [place] [address] Kavitha Almanza MA 04/27/2025 Clinisync Result Encounter NOMS External Department Unsolicited Rossana Leach PA 04/25/2025 2:50 PM EDT Office Visit [facility] [address] [address] Rossana Leach PA Second trimester ([facility]); 27 weeks gestation of ([facility]); induced hypertension, antepartum ([facility]) 04/25/2025 Bamboo flowsheet [facility] [address] [address] Rossana Leach PA 04/11/2025 3:30 PM EDT Routine [facility] [address] [address] Rossana Leach PA Second trimester ([facility]); 25 weeks gestation of ([facility]); Diabetes mellitus screening; Elevated BP without diagnosis of hypertension 04/11/2025 Bamboo flowsheet [facility] [address] [address] Rossana Leach PA 03/28/2025 Abstract [facility] [address] [address] Mackenzie Rodriguez DO 03/25/2025 Clinisync Result Encounter NOMS External Department Unsolicited Mackenzie Rodriguez DO 03/14/2025 10:50 AM EDT Routine [facility] [address] [address] Michael, Mackenzie, DO Second trimester ([facility]); 21 weeks gestation of ([facility]) 03/14/2025 Bamboo flowsheet [facility] [address] [place] [phone] Mackenzie Rodriguez, 03/11/2025 Results Follow-Up [facility] [place] [phone] Glenna Butler, SERVICE AIDE OB ANATOMY 03/11/2025 Telephone [facility] [place] [phone] Glenna Butler LPN 03/08/2025 Clinisync Result Encounter NOMS External Department Unsolicited Mackenzie Rodriguez, DO 03/08/2025 Clinisync Result Encounter NOMS External Department Unsolicited Mackenzie Rodriguez, DO 03/06/2025 Orders Only [facility] TREVI[address]OGY[address]egan [address] [facility] [place] [phone] Kavitha Almanza MA from Last 3 Months Family History Medical [...] 12 oz) 05/22/2025 3:02 PM EDT Height 160 cm (5' 3 ) 01/06/2023 12:00 PM EDT Body Mass Index 31.49 01/06/2023 12:00 PM EDT Plan of Treatment Upcoming Encounters Date Type Department Care Team (Late st Contact Info) Description 05/28/2025 10:30 AM EDT Routine [facility] [address] [phone] Mackenzie Rodriguez, [address] [place] [place] [address] Health Maintenance Due Date Last Done Comments Influenza Vaccine (#1) 2025 08/28/2003, 2002 Procedures Procedure Name Priority Date/Time Associated Diagnosis Comments POCT URINALYSIS DIPSTICK Routine 05/22/2025 3:12 PM EDT Third trimester ([facility]) TBH TOTAL PROTEIN 24 HOUR URINE Routine 05/20/2025 7:00 AM EDT US OB BPP W NON-STRESS 05/18/2025 5:08 [...] Routine 04/25/2025 3:12 PM EDT Second trimester ([facility]) POCT URINALYSIS DIPSTICK Routine 04/11/2025 3:44 PM EDT Second trimester ([facility]) US OB INCOMPLETE ANATOMY 03/25/2025 8:25 AM EDT POCT URINALYSIS DIPSTICK Routine 03/14/2025 11:39 AM EDT Second trimester ([facility]) US OB CERVICAL LENGTH 03/08/2025 8:36 PM EDT US OB ANATOMY 03/08/2025 8:36 PM EDT from Last 3 Months Results * POCT urinalysis dipstick manually resulted (05/22/2025 3:12 PM EDT) Only the most recent of5 resultswithin [...] - Positive Urine 05/22/2025 3:12 PM EDT Mackenzie Rodriguez DO POINT OF CARE TEST ENTER/EDIT OR DERABLES Final Result * (ABNORMAL) TBH TOTAL PROTEIN 24 HOUR URINE (05/20/2025 7:00 AM EDT) Only the most recent of2 resultswithin the time period is included. TOTAL PROTEIN URINE RANDOM 6.7 <=11.9 mg/dL TBH TOTAL VOLUME 24 HOUR URINE 2,900 mL/24hr TBH TBH TOTAL PROTEIN 24 HOUR URINE 194.3(H) <=149.1 mg/24hr TBH 05/20/2025 7:00 AM EDT 05/20/2025 5:37 PM EDT Narrative CLINISYNC - 05/20/2025 7:25 PM EDT us Mackenzie Michael DO CLINISYNC Final Result [facility] * US OB BPP W NON-STRESS (05/18/2025 5:08 PM EDT) Only the most recent of3 resultswithin the time period is included. Anatomical Region Laterality Modality Other 05/18/2025 5:08 PM EDT Narrative 05/18/2025 8:17 PM EDT [address] [address] Ultrasound Report Signed Patient: VIMAL FUNES MR#: [id number] : 2000 Acct:[id number] Age/Sex: 25 / F ADM Date: 05/18/25 Loc: US Attending Dr: Rossana Leach Ordering Physician: Rossana Leach Date of Service: 05/18/25 Procedure(s): US OB BPP w non-stress Accession Number(s): [id number] cc: Rossana Leach; LUIS SEE [address] [address] Patient Name: VIMAL FUNES MRN: [id number] date: 2000 Sex: F Assigned Patient Location: [facility] Current Patient Location: Accession/Order Number: [id number] Exam Date: 05/18/2025 11:16 Report Date: 05/18/2025 [...] BPP w non-stress IMPRESSION: Biophysical profile score: 8 Impression dictated by: Heriberto Acharya M.D. 05/18/2025 5:08 PM Dictation Location: [facility] Electronically authenticated by: [id number] Y Date: 05/18/2025 17:08 Dictated By: Heriberto Acharya M.D. Signed By: 05/18/252016 DD/ 07 TD/TT: Wound/Ostomy Clinical Nurse Specialist: Procedure Note Radiology, Radiologist, MD - 05/18/2025 [place] [address] Ultrasound Report Signed Patient: VIMAL FUNES MMR#: [id number] : 2000Acct:[id number] Age/Sex: 25 / FADM Date: 05/18/25 Loc: US Attending Dr: Rossana Leach Ordering Physician: Rossana Leach Date of Service: 05/18/25 Procedure(s): US OB BPP w non-stress Accession Number(s): [id number] cc: Rossana Leach; LUIS SEE [place] [id number] Patient Name: VIMAL FUNES MRN: [id number] date: 2000 Sex: F Assigned Patient Location: [facility] Current Patient Location: Accession/Order Number: [id number] Exam Date: 05/18/2025 11:16 Report Date: 05/18/2025 [...] BPP w non-stress IMPRESSION: Biophysical profile score: 88 Impression dictated by: Heriberto Acharya M.D. 05/18/2025 5:08 PM Dictation Location: [place] Electronically authenticated by: [id number] Y Date: 7: Dictated By: Heriberto Acharya M.D. Signed By:05/18/252016 DD/ 07 TD/TT: Wound/Ostomy Clinical Nurse Specialist: Rossana BISWAS [facility] IMAGING Final Result * (ABNORMAL) TBH CREATININE (05/18/2025 11:03 AM EDT) Only the most recent of2 resultswithin the time period is included. CREATININE 0.38(L) 0.55 - 1.02 mg/dL TBH TBH EGFR-AF PANAMANIAN >60 >=60 mL/min/1.7 3m 2 TBH TBH EGFR-NON AF PANAMANIAN >60 >=60 mL/min/1.7 3m 2 TBH 05/18/2025 11:0 3 AM EDT 05/18/2025 11:08 AM EDT Narrative CLINISYNC - 05/18/2025 11:50 AM EDT us Mackenzie Rodriguez DO CLINISYNC Final Result [facility] * [facility] PROTHROMBIN TIME INR W/O COUM (05/18/2025 11:03 AM EDT) Only the most recent of2 resultswithin the time period is included. PROTHROMBIN TIME 10.2 9.0 - 11.6 sec TBH TBH INR 0.96 TBH Comment: DESIRED INR: 2.0-3.0 CONDITIONS NOT LISTED BELOW 2.5-3.5 FOR PROSTHETIC HEART VALVE REPLACEMENT 2.5-3.5 RECURRENT THROMBOSIS 05/18/2025 11:0 3 AM EDT 05/18/2025 11:08 AM EDT Narrative CLINISYNC - 05/18/2025 11:29 AM EDT Mackenzie Michael DO CLINISYNC Final Result Performing Organization Address [facility]/ZIP Co de Phone Number [facility] * [facility] AST (05/18/2025 11:03 AM EDT) Only the most recent of2 resultswithin the time period is included. ASPARTATE AMINO TRANSFERASE 18 15 - 37 U/L TBH 05/18/2025 11:0 3 AM EDT 05/18/2025 11:08 AM EDT Narrative CLINISYNC - 05/18/2025 11:50 AM EDT [employer] Michael DO CLINISYNC Final Result Performing Organization Address [facility] Co de Phone Number [facility] * [facility] APTT (05/18/2025 11:03 AM EDT) Only the most recent of2 resultswithin the time period is included. PARTIAL THROMBOPLASTIN TIME 25.6 22.3 - 36.2 sec TB 05/18/2025 11:0 3 AM EDT 05/18/2025 11:08 AM EDT Narrative CLINISYNC - 05/18/2025 11:29 AM EDT Mackenzie Michael DO CLINISYNC Final Result Performing Organization Address [facility] de Phone Number [facility] * ALL URIC ACID (05/18/2025 11:03 AM EDT) Only the most recent of2 resultswithin the time period is included. URIC ACID 4.0 2.6 - 6.0 mg/dL TB 05/18/2025 11:0 3 AM EDT 05/18/2025 11:08 AM EDT Narrative CLINISYNC - 05/18/2025 11:50 AM EDT us Mackenzie Michael DO CLINISYNC Final Result [facility] * ALL LDH (05/18/2025 11:03 AM EDT) Only the most recent of2 resultswithin the time period is included. LACTATE DEHYDROGENASE 147 81 - 234 U/L TB 05/18/2025 11:0 3 AM EDT 05/18/2025 11:08 AM EDT Narrative CLINISYNC - 05/18/2025 11:50 AM EDT Mackenzie Michael DO CLINISYNC Final Result Performing Organization Address [facility] Co de Phone Number [facility] * (ABNORMAL) ALL CBC WITH AUTO DIFF (05/18/2025 11:03 AM EDT) Only the most recent of3 resultswithin the time period is included. TB WBC 15.0(H) 4.0 - 11.0 10 3/uL TBH TB RBC 4.17(L) 4.20 - 5.40 10 6/uL TBH TBH HGB 13.3 12.0 - 16.0 g/dL TB TB HCT 38.1 36.0 - 48.0 % TBH TBH MCV 91.4 81.0 - 99.0 fL TBH TBH MCH 31.9 26.7 - 34.0 pg TBH TBH MCHC 34.9 29.9 - 35.2 g/dL TB TB RDW [...] Narrative CLINISYNC - 05/18/2025 11:27 AM EDT Mackenzie Michael DO CLINISYNC Final Result [facility] * ALL BUN (05/18/2025 11:03 AM EDT) Only the most recent of2 resultswithin the time period is included. Pathologist [facility] BLOOD UREA NITROGEN 9.0 7.0 - 18.0 mg/dL TBH 05/18/2025 11:0 3 AM EDT 05/18/2025 11:08 AM EDT Narrative CLINISYNC - 05/18/2025 11:50 AM EDT us Mackenzie Michael DO CLINISYNC Final Result CLIN[facility]FL TB * US OB GROWTH (05/04/2025 12:08 PM EDT) Anatomical Region Laterality Modality Other 05/04/2025 12:0 8 PM EDT Narrative 05/04/2025 12:11 PM EDT [address] [address] Ultrasound Report Signed Patient: VIMAL FUNES MR#: [id number] : 2000 Acct:[id number] Age/Sex: 25 / F ADM Date: 05/04/25 Loc: [facility] 250-[address]: Rossana Leach Ordering Physician: Rossana Leach Date of Service: 05/04/25 Procedure(s): US OB growth Accession Number(s): [id number] cc: Rossana Leach; LUIS SEE [place] [address] Patient Name: VIMAL FUNES MRN: [id number] date: 2000 Sex: F Assigned Patient Location: [facility] Current Patient Location: [facility] Accession/Order Number: [id number] Exam Date: 05/04/2025 12:06 Report Date: 05/04/2025 [...] Jr., D.O. 05/04/2025 12:08 PM Dictation Location: [employer] Electronically authenticated by: [id number] Y Date: 05/04/2025 12:08 Dictated By: Bulmaro Arias M.D. Signed By: 05/04/25 1211 DD/ 1208 TD/TT: Wound/Ostomy Clinical Nurse Specialist: Procedure Note Radiology, Radiologist, MD - 05/04/[address] [address] Ultrasound Report Signed Patient: VIMAL FUNES MMR#: [id number] : 2000Acct:[id number] Age/Sex: 25 / FADM Date: 05/04/25 Loc: [facility] 250-[address]: Rossana Leach Ordering Physician: Rossana Leach Date of Service: 05/04/25 Procedure(s): US OB growth Accession Number(s): [id number] cc: Rossana Leach; LUIS SEE [place] [id number] Patient Name: VIMAL FUNES MRN: [id number] date: 2000 Sex: F Assigned Patient Location: [facility] Current Patient Location: [facility] Accession/Order Number: [id number] Exam Date: 05/04/2025 12:06 Report Date: 05/04/2025 [...] Jr., D.O. 05/04/2025 12:08 PM Dictation Location: [place] [address] Electronically authenticated by: [id number] Y Date: 2:08 Dictated By: Bulmaro Arias M.D. Signed By:05/04/25 1211 DD/ 1208 TD/TT: Wound/Ostomy Clinical Nurse Specialist: us Rossana BISWAS [facility] IMAG[facility] Final Result * (ABNORMAL) GLUCOSE [...] ORDERABLES Final Resul t Performing Organization Address City/[facility]/ZIP Co de Phone Number [facility] * (ABNORMAL) GLUCOSE 1 HOUR (04/27/2025 10:05 AM EDT) GLUCOSE 1 HOUR 171(H) <130 mg/dL TB 04/27/2025 10:0 5 AM EDT 04/27/2025 10:06 AM EDT Narrative CLINISYNC - 04/27/2025 10:45 AM EDT Rossana BISWAS LAB BLOOD ORDERABLES Final Resul t Performing Organization Address City/[facility]/ZIP Co de Phone Number [facility] * US OB INCOMPLETE ANATOMY (03/25/2025 8:25 AM EDT) Anatomical Region Laterality Modality Other 03/25/2025 8:25 AM EDT Narrative 03/25/2025 8:27 AM EDT [address] [address] Ultrasound Report Signed Patient: VIMAL FUNES MR#: [id number] : 2000 Acct:[id number] Age/Sex: 24 / F ADM Date: 03/23/25 Loc: US Attending Dr: Mackenzie Rodriguez D.O. Ordering Physician: Mackenzie Rodriguez D.O. Date of Service: 03/23/25 Procedure(s): US OB incomplete anatomy Accession Number(s): [id number] cc: LUIS SEE ; Mackenzie Rodriguez D.O. The [place] [address] Patient Name: VIMAL FUNES MRN: [id number] date: 2000 Sex: F Assigned Patient Location: US Current Patient Location: US Accession/Order Number: [id number] Exam Date: 03/25/2025 08:23 Report Date: 03/25/2025 [...] Brown M.D. 03/25/2025 8:25 AM Dictation Location: [place] [address] Electronically authenticated by: [id number] Y Date: 03/25/2025 08:25 Dictated By: Meghana Brown M.D. Signed By: 03/25/25826 DD/ 4 TD/TT: Wound/Ostomy Clinical Nurse Specialist: Procedure Note Radiology, Radiologist, MD - 03/25/2025 [place] [address] Ultrasound Report Signed Patient: VIMAL FUNES MMR#: [id number] : 2000Acct:[id number] Age/Sex: 24 / FADM Date: 03/23/25 Loc: US Attending Dr: Mackenzie Rodriguez D.O. Ordering Physician: Mackenzie Rodriguez D.O. Date of Service: 03/23/25 Procedure(s): US OB incomplete anatomy Accession Number(s): [id number] cc: LUIS SEE ; Mackenzie Rodriguez D.O. [address] [address] Patient Name: VIMAL FUNES MRN: [id number] date: 2000 Sex: F Assigned Patient Location: US Current Patient Location: US Accession/Order Number: [id number] Exam Date: 03/25/2025 08:23 Report Date: 03/25/2025 [...] Brown M.D. 03/25/2025 8:25 AM Dictation Location: [place] [address] Electronically authenticated by: [id number] Y Date: 508:25 Dictated By: Meghana Brown M.D. Signed By:03/25/25 0827 DD/ 4 TD/TT: Wound/Ostomy Clinical Nurse Specialist: us Mackenzie Rodriguez DO [facility] IMAGING Final Result * US OB CERVICAL LENGTH (03/08/2025 8:36 PM EDT) Anatomical Region Laterality Modality Other 03/08/2025 8:36 PM EDT Narrative 03/08/2025 8:38 PM EDT [address] [address] Ultrasound Report Signed Patient: VIMAL FUNES MR#: [id number] : 2000 Acct:[id number] Age/Sex: 24 / F ADM Date: 03/08/25 Loc: US Attending Dr: Mackenzie Rodriguez D.O. Ordering Physician: Mackenzie Rodriguez D.O. Date of Service: 03/08/25 Procedure(s): US OB cervical length Accession Number(s): [id number] cc: LUIS SEE ; Mackenzie Rodriguez D.O. [place] [address] Patient Name: VIMAL FUNES MRN: [id number] date: 2000 Sex: F Assigned Patient Location: US Current Patient Location: US Accession/Order Number: [id number] Exam Date: 03/08/2025 20:31 Report Date: 03/08/2025 [...] Knapp M.D. 03/08/2025 8:36 PM Dictation Location: [place] Electronically authenticated by: [id number] Y Date: 03/08/2025 20:36 Dictated By: Shivam Knapp D.O. Signed By: 03/08/252037 DD/ 35 TD/TT: Wound/Ostomy Clinical Nurse Specialist: Procedure Note Radiology, Radiologist, - 03/08/2025 [place] [address] Ultrasound Report Signed Patient: VIMAL FUNES MMR#: [id number] : 2000Acct:[id number] Age/Sex: 24 / FADM Date: 03/08/25 Loc: US Attending Dr: Mackenzie Rodriguez D.O. Ordering Physician: Mackenzie Rodriguez D.O. Date of Service: 03/08/25 Procedure(s): US OB cervical length Accession Number(s): [id number] cc: LUIS SEE ; Mackenzie Rodriguez D.O. The [place] [id number] Patient Name: VIMAL FUNES MRN: [id number] date: 2000 Sex: F Assigned Patient Location: US Current Patient Location: US Accession/Order Number: [id number] Exam Date: 03/08/2025 20:31 Report Date: 03/08/2025 [...] M.D. 03/08/2025 8:36 PM Dictation Location: [facility] Electronically authenticated by: [id number] Y Date: 0:36 Dictated By: Shivam Knapp D.O. Signed By:03/08/252037 DD/ 35 TD/TT: Wound/Ostomy Clinical Nurse Specialist: us Mackenzie Rodriguez DO [facility] IMAGING Final Result * US OB ANATOMY (03/08/2025 8:36 PM EDT) Anatomical Region Laterality Modality Other 03/08/2025 8:36 PM EDT Narrative 03/08/2025 8:38 [place] [address] Ultrasound Report Signed Patient: VIMAL FUNES MR#: [id number] : 2000 Acct:[id number] Age/Sex: 24 / F ADM Date: 03/08/25 Loc: US Attending Dr: Mackenzie Rodriguez D.O. Ordering Physician: Mackenzie Rodriguez D.O. Date of Service: 03/08/25 Procedure(s): US OB anatomy Accession Number(s): [id number] cc: LUIS SEE ; Mackenzie Rodriguez D.O. [address] [address] Patient Name: VIMAL FUNES MRN: [id number] date: 2000 Sex: F Assigned Patient Location: US Current Patient Location: US Accession/Order Number: [id number] Exam Date: 03/08/2025 20:31 Report Date: 03/08/2025 [...] Knapp M.D. 03/08/2025 8:36 PM Dictation Location: [place] Electronically authenticated by: [id number] Y Date: 03/08/2025 20:36 Dictated By: Shivam Knapp D.O. Signed By: 03/08/252037 DD/ 35 TD/TT: Wound/Ostomy Clinical Nurse Specialist: Procedure Note Radiology, Radiologist, MD - 03/08/2025 [place] [address] Ultrasound Report Signed Patient: VIMAL FUNES MMR#: [id number] : 2000Acct:[id number] Age/Sex: 24 FADM Date: 03/08/25 Loc: US Attending Dr: Mackenzie Rodriguez D.O. Ordering Physician: Mackenzie Rodriguez D.O. Date of Service: 03/08/25 Procedure(s): US OB anatomy Accession Number(s): [id number] cc: LUIS SEE ; Mackenzie Rodriguez D.O. The [address] [address] Patient Name: VIMAL FUNES MRN: [id number] date: 2000 Sex: F Assigned Patient Location: US Current Patient Location: US Accession/Order Number: [id number] Exam Date: 03/08/2025 20:31 Report Date: 03/08/2025 [...] 19 weeks 3 days. Impression dictated by: hSivam Knapp M.D. 03/08/2025 8:36 PM Dictation Location: [facility] Electronically authenticated by: [id number] Y Date: 0:36 Dictated By: Shivam Knapp D.O. Signed By:03/08/252037 DD/ 35 TD/TT: Wound/Ostomy Clinical Nurse Specialist: Mackenzie Rodriguez DO [facility] IMAGING Final Result from Last 3 Months Insurance [employer] Care Teams Straight Truck Driver Relationship Specialty Start Date End Date Unallocated, [facility] [place], [address] [place] [address] PCP - General Family Medicine 08/03/24
--- OUTSIDE RECORDS SUMMARY | 2025-05-25 08:00 | XMS_ITS | Encounter Summary ---
Author Organization [facility] Address [address] [place] [address] Care Team Providers Care Slate Cutter Name Role Phone Unallocated, Noms Provider Primary Care Provi krissy Encounter Details Date Type Department Care Team (Late st Contact Info) Description 05/11/2025 Clinisync Result Encounter [facility] External Department Unsolicited Collin Leach PA [address] [place], [facility]11 Social History Tobacco Use [...] AM EDT Routine [facility] [address] [facility] [place] [phone] Jose Rodriguez DO [address] [facility] [address]ué [place], [place] [id number] documented as of this encounter Procedures Procedure Name Priority Date/Time Associated Diagnosis Comments US OB BPP W NON-STRESS 05/11/2025 12:02 PM EDT documented in this encounter Results * US OB BPP W NON-STRESS (05/11/2025 12:02 PM EDT) Anatomical Region Laterality Modality Other 05/11/2025 12:0 2 PM EDT Narrative 05/11/2025 12:04 [place] [address] Ultrasound Report Signed Patient: VIMAL PIZANO MR#: [id number] : 2000 Acct:[id number] Age/Sex: 25 / F ADM Date: 05/11/25 Loc: [facility] 253-[address]: Collin Leach Ordering Physician: Collin Leach Date of Service: 05/11/25 Procedure(s): US OB BPP w non-stress Accession Number(s): [id number] cc: Collin Leach; LUIS SEE [address] [address] Patient Name: VIMAL PIZANO MRN: [id number] date: 2000 Sex: F Assigned Patient Location: [facility] Current Patient Location: [facility] Accession/Order Number: [id number] Exam Date: 05/11/2025 12:01 Report Date: 05/11/2025 12:02 At the request of: COLLIN LEACH Procedure: US OB BPP w non-stress Biophysical profile. Reason for exam: Gestational diabetes COMPARISON: 05/04/2025 TECHNIQUE: Transabdominal imaging of the gravid uterus was obtained. FINDINGS: The chief engineer's helper reports a BPP of 8 out of 8. DANYA is normal at 11.9 cm. heart rate 138 bpm. US/US OB BPP w non-stress IMPRESSION: BPP 8 out of 8. Impression dictated by: Bulmaro Arias Jr., D.O. 05/11/2025 12:02 PM Dictation Location: [facility]-PC-18 Electronically authenticated by: [id number] Y Date: 05/11/2025 12:02 Dictated By: Bulmaro Arias M.D. Signed By: 05/11/25 1204 DD/ 120 TD/TT: Straightener: Procedure Note Radiology, Radiologist, - 05/11/2025 [place] [address] Ultrasound Report Signed Patient: VIMAL PIZANO MMR#: [id number] : 2000Acct:[id number] Age/Sex: 25 / FADM Date: 05/11/25 Loc: [facility] 253-[address]: Collin Leach Ordering Physician: Collin Leach Date of Service: 05/11/25 Procedure(s): US OB BPP w non-stress Accession Number(s): [id number] cc: Collin Leach; LUIS SEE [place] [address] Patient Name: VIMAL PIZANO MRN: [id number] date: 2000 Sex: F Assigned Patient Location: [facility] Current Patient Location: [facility] Accession/Order Number: [id number] Exam Date: 05/11/2025 12:01 Report Date: 05/11/2025 12:02 At the request of: COLLIN LEACH Procedure: US OB BPP w non-stress Biophysical profile. Reason for exam: Gestational diabetes COMPARISON: 05/04/2025 TECHNIQUE: Transabdominal imaging of the gravid uterus was obtained. FINDINGS: The chief engineer's helper reports a BPP of 8 out of 8. DANYA is normal at11.9 cm. heart rate 138 bpm. US/US OB BPP w non-stress IMPRESSION: BPP 8 out of 8. Impression dictated by: Bulmaro Arias Jr., D.O. 05/11/2025 12:02 PM Dictation Location: [facility]PC-18 Electronically authenticated by: [id number] Y Date: 2:02 Dictated By: Bulmaro Arias M.D. Signed By:05/11/25 1204 DD/ 1202 TD/TT: Straightener: Collin BISWAS [facility] Final Result documented in this encounter Visit Diagnoses Not on filedocumented in this encounter Care Teams Slate Cutter Relationship Specialty Start Date End Date Unallocated, Noms Provider, [address] [place] [address] PCP - General Family Medicine 08/03/24 documented as of this encounter
--- OUTSIDE RECORDS SUMMARY | 2025-05-25 08:00 | XMS_ITS | Encounter Summary ---
Author Organization [facility] Address [address] [place] [address] Care Team Providers Care Back Up Worker Name Role Phone Unallocated, Noms Provider Primary Care Provi krissy Encounter Details Date Type Department Care Team (Late st Contact Info) Description 05/18/2025 Clinisync Result Encounter [facility] External Department Unsolicited Jose Rodriguez DO [address] [place] [address] Social History Tobacco Use Types Packs/Day [...] Routine [facility] [address] [place] [phone] Jose Rodriguez DO [address] [place] [address] documented as of this encounter Procedures [...] EDT Jose Michael DO [facility] Final [facility] * ALL URIC ACID (05/18/2025 11:03 AM EDT) URIC ACID 4.0 2.6 - 6.0 mg/dL TB 05/18/2025 11:0 3 AM EDT 05/18/2025 11:08 AM EDT Narrative [facility]IN[facility] - 05/18/2025 11:50 AM EDT Jose Michael DO [facility] Final Result Performing Organization Address [facility] Co de Phone Number [facility] * (ABNORMAL) TBH CREATININE (05/18/2025 11:03 AM EDT) CREATININE 0.38(L) 0.55 - 1.02 mg/dL TBH TBH EGFR-AF POLISH >60 >=60 mL/min/1.7 3m 2 TBH TBH EGFR-NON AF POLISH >60 >=60 mL/min/1.7 3m 2 TBH 05/18/2025 11:0 3 AM EDT 05/18/2025 11:08 AM EDT Narrative CLINIS[facility] - 05/18/2025 11:50 AM EDT Jose Michelezio DO [facility]IN[facility] Final Result Performing Organization Address City/[facility]/ZIP Co de Phone Number [facility] * ALL BUN (05/18/2025 11:03 AM EDT) BLOOD UREA NITROGEN 9.0 7.0 - 18.0 mg/dL TBH 05/18/2025 11:0 3 AM EDT 05/18/2025 11:08 AM EDT Narrative [facility]INIS[facility] - 05/18/2025 11:50 AM EDT Jose Michael DO [facility] Final Result [facility] * [facility] APTT (05/18/2025 11:03 AM EDT) PARTIAL THROMBOPLASTIN TIME 25.6 22.3 - 36.2 sec TBH 05/18/2025 11:0 3 AM EDT 05/18/2025 11:08 AM EDT Narrative CLINISY[facility] - 05/18/2025 11:29 AM EDT Jose Michael DO [facility]IN[facility] Final Result Performing Organization Address City/[facility]/ZIP Co de Phone Number [facility] * SRMCOH PROTHROMBIN TIME INR W/O COUM (05/18/2025 11:03 AM EDT) PROTHROMBIN TIME 10.2 9.0 - 11.6 sec TB TB INR 0.96 TBH Comment: DESIRED INR: 2.0-3.0 CONDITIONS NOT LISTED BELOW 2.5-3.5 FOR PROSTHETIC HEART VALVE REPLACEMENT 2.5-3.5 RECURRENT THROMBOSIS 05/18/2025 11:0 3 AM EDT 05/18/2025 11:08 AM EDT Narrative CLINISYNC - 05/18/2025 11:29 AM EDT [facility] Michael DO CLINIS[facility] Final Result Performing Organization Address City/[facility]/ZIP Co de Phone Number [facility] * (ABNORMAL) ALL CBC WITH [...] on filedocumented in this encounter Care Teams Back Up Worker Relationship Specialty Start Date End Date Unallocated, Noms Provider, MD Zuhair [place], [place] [id number] PCP - General Family Medicine 08/03/24 documented as of this encounter
--- OUTSIDE RECORDS SUMMARY | 2025-05-25 08:00 | XMS_ITS | Encounter Summary ---
Author Organization [facility] Address [address] [place] [address] Care Team Providers Care Carbon Accountant Name Role Phone Unallocated, Noms Provider Primary Care Provi krissy Encounter Details Date Type Department Care Team (Late st Contact Info) Description 08/10/2024 Abstract ARJUN PANG [facility] [place] [phone] Jose Rodriguez DO [address] [place], [place] [address] Social History Tobacco Use Types Packs/Day Years [...] 05/28/2025 10:30 AM EDT Routine ARJUN PANG [facility] [place] [address] Jose Rodriguez DO [address] [place], [facility]11 documented as of this encounter Visit Diagnoses Not on filedocumented in this encounter Care Teams Carbon Accountant Relationship Specialty Start Date End Date Unallocated, Noms Provider, [address] [place] [address] PCP - General Family Medicine 08/03/24 documented as of this encounter
--- OUTSIDE RECORDS SUMMARY | 2025-05-25 08:00 | XMS_ITS | Encounter Summary ---
Author Organization [facility] Address [address] [place] [address] Care Team Providers Care Review Analyst Name Role Phone Unallocated, Noms Provider Primary Care Provi krissy Encounter Details Date Type Department Care Team (Late Contact Info) Description 05/08/2025 Abstract ARJUN PANG [facility] [place] [address] Jose Rodriguez DO [address] [place], [facility]11 Social History Tobacco Use Types [...] Info) Description 05/28/2025 10:30 AM EDT Routine NOMMay PANG [address] [place] [address] Jose Rodriguez DO [address] [facility] [address] [place] [place] [address] documented as of this encounter Visit Diagnoses Not on filedocumented in this encounter Care Teams Review Analyst Relationship Specialty Start Date End Date Unallocated, Noms Provider, [place] [address] PCP - General Family Medicine 08/03/24 documented as of this encounter
--- OUTSIDE RECORDS SUMMARY | 2025-05-25 08:00 | XMS_ITS | Encounter Summary ---
Author Organization [facility] Address [address] [place] [address] Care Team Providers Care Bee Worker Name Role Phone Unallocated, Noms Provider Primary Care Provi krissy Encounter Details Date Type Department Care Team (Late st Contact Info) Description 03/11/2025 Results Follow-Up ARJUN [place] [facility] [address] [facility] [address] [place] [address] Glenna Butler LPN [address] [place] [address] US OB ANATOMY Social History [...] Description 05/28/2025 10:30 AM EDT Routine [facility]ir [facility] [address] [facility] [place] [phone] Jose Rodriguez DO [address] [place] [address] documented as of this encounter Visit Diagnoses Not on filedocumented in this encounter Care Teams Bee Worker Relationship Specialty Start Date End Date Unallocated, Noms Gilda, [address] [place] [address] PCP - General Family Medicine 08/03/24 documented as of this encounter
--- OUTSIDE RECORDS SUMMARY | 2025-05-25 08:00 | XMS_ITS | Encounter Summary ---
Author Organization [facility] Address [address] [place] [address] Care Team Providers Care Clinical Sales Consultant Name Role Phone Unallocated, Noms Provider Primary Care Provi krissy Encounter Details Date Type Department Care Team (Late Contact Info) Description 05/22/2025 Bamboo flowsheet ARJUN PANG [address] [place] [phone] Jose Rodriguez DO [address] [place], [place] [address]Tal [place], [facility]11 Social History [...] 10:30 AM EDT Routine NOMMay PANG [address] [place] [address] Jose Rodriguez DO [address] [place], [place] [address]sude[address] [place] [address] documented as of this encounter Visit Diagnoses Not on filedocumented in this encounter Care Teams Clinical Sales Consultant Relationship Specialty Start Date End Date Unallocated, Noms Provider, [place] [address] PCP - General Family Medicine 08/03/24 documented as of this encounter
--- OUTSIDE RECORDS SUMMARY | 2025-05-25 08:00 | XMS_ITS | CCD ---
Author Organization [facility] Care Team Providers Care Aprn Name Role Phone MICHAEL ., DR MANN [...] MICHAEL ., DR MANN Consulting Unavailable SHARP, DARNI Consulting Unavailable MICHAEL ., DR MANN Procedure [...] Unavailable MISC, DR DOMINIQUE Primary Care Unavailable LA PLATA, DR COCO Danielle Consulting Unavailable MICHAEL ., DR MANN Consulting Unavailable MICHAEL ., DR MANN Admitting Unavailable MICHAEL ., DR MANN Attending Unavailable MISC, DR DOMINIQUE Primary Care Unavailable MICHAEL ., DR MANN Consulting Unavailable MICHAEL ., DR MANN Admitting Unavailable MICHAEL ., DR MANN Attending Unavailable MISC, DR DOMINIQUE Primary Care Unavailable LA PLATA, DR COCO Danielle Consulting Unavailable MICHAEL ., [...] DOMINIQUE Primary Care Unavailable MICHAEL ., DR AMNN Consulting Unavailable CARIDAD NGUYEN Admitting Unavailable CARIDAD [...] Primary Care Provider UnavailXENIA Marquez Attending Unavailable MICHAEL, JOSE R Referring Unavailable MICHAEL, JOSE Attending Unavailable RACHEL, ROSSANA Attending Unavailable MICHAEL, JOSE Attending Unavailable RACHEL, ROSSANA Attending Unavailable MICHAEL, JOSE Attending Unavailable RACHEL, ROSSANA Attending Unavailable RACHEL, ROSSANA Attending Unavailable RACHEL, ROSSANA Attending Unavailable MICHAEL, JOSE Attending Unavailable MICHAEL, JOSE Attending Unavailable Medications Current Medications Medication Drug [...] antepartum, gestational diabetes method of control unspecified ([facility]) , Elevated glucose tolerance test 1 [...] tablet Indications: -induced hypertension in third trimester ([facility]) Take 1 tablet (300 mg) by mouth in the morning and 1 tablet (300 mg) in the evening and 1 tablet (300 mg) before bedtime. 90 tablet 04/30/2025 04/30/2026 Active Start: 04-25-2025 End: 04-25-2026 take 1 tablet by mouth in the morning labetalol (Normodyne) 200 MG tablet Indications: induced hypertension, antepartum ([facility]) Take 1 tablet (200 mg) by mouth [...] UA Negative Negative - 4(70) +++ mg/dL [facility] Blood, UA Negative Negative - 50 Jason/mcL [facility] Clarity, UA Clear [facility] Color, UA Yellow [facility] Glucose, UA Negative Negative - 2000(110) ++++ mg/dL [facility] Interpretation and review of laboratory results Normal [facility] Ketones, UA Negative Negative - 160(16) ++++ mg/dL [facility] Leukocytes, UA Negative Negative - 500+++ Carlos/mcL [facility] Nitrite, UA Negative Negative - Positive [facility] pH, UA 6 5 - 9 [facility] Protein, UA Negative Negative - 2000(20) ++++ mg/dL [facility] Spec Grav, UA 1.01 1 - 1.03 [facility] Urobilinogen, UA 0.2 0.2 - 12 mg/dL [facility] TBH TOTAL PROTEIN 24 HOUR UR INEon 05-20-2025 Interpretation and review of laboratory results Abnormal [facility] Protein (U) [Mass/Vol] 6.7 mg/dL NINF - 11.9 mg/dL [facility] TBH TOTAL PROTEIN 24 HOUR URINE 194.3 [facility] TOTAL VOLUME 24 HOUR URINE 2900 mL/24hr [facility] ALL CBC WITH AUTO DIFFon BASOPHILS ABSOLUTE AUTO 0 [facility] Basophils/100 WBC (Bld) 0.1 % Low 0.2 - 2.0 % [facility] Eosinophils/100 WBC (Bld) 1.7 % 0.9 - 7.0 % [facility] Erythrocyte distribution width (RBC) [Ratio] 12.7 % 11.0 - 15.0 % [facility] Hematocrit (Bld) [Volume fraction] 38.1 % 36.0 - 48.0 % [facility] Hemoglobin (Bld) [Mass/Vol] 13.3 g/dL 12.0 - 16.0 g/dL [facility] IMMATURE GRANULOCYTES ABS AUTO 0.06 High [facility] Immature granulocytes/100 WBC (Bld) 0.4 % 0.0 - 0.5 % [facility] Interpretation and review of laboratory results Abnormal [facility] LYMPHOCYTES ABSOLUTE AUTO 1.4 [facility] Lymphocytes/100 WBC (Bld) 9 % Low 20.5 - 60.0 % [facility] MCH (RBC) [Entitic mass] 31.9 pg 26.7 - 34.0 pg [facility] MCHC (RBC) [Mass/Vol] 34.9 g/dL 29.9 - 35.2 g/dL [facility] MCV (RBC) [Entitic vol] 91.4 fL 81.0 [...] US OB BPP W NON-STRESS on 05-18-2025 [place] [address] Ultrasound Report Signed Patient: VIMAL FUNES MR#: [id number] : 2000 Acct:[id number] Age/Sex: 25 / F ADM Date: 05/18/25 Loc: US Attending Dr: Rossana Leach Ordering Physician: Rossana Leach Date of Service: 05/18/25 Procedure(s): US OB BPP w non-stress Accession Number(s): [id number] cc: Rossana Leach; JENNIFER SEE [address] [address] Patient Name: VIMAL FUNES MRN: [id number] date: 2000 Sex: F Assigned Patient Location: [facility] Current Patient Location: Accession/Order Number: [id number] Exam Date: 05/18/2025 11:16 Report Date: 05/18/2025 [...] Acharya M.D. 05/18/2025 5:08 PM Dictation Location: [place] [address] Electronically authenticated by: [id number] Y Date: 05/18/2025 17:08 Dictated By: Heriberto Acharya M.D. Signed By: 05/18/252016 DD/ 07 TD/TT: Chart Picker: [facility] Radiology, Radiologist, - 05/18/2025 [place] [id number] Ultrasound Report Signed Patient: VIMAL FUNES MR#: [id number] : 2000 Acct:[id number] Age/Sex: 25 / F ADM Date: 05/18/25 Loc: US Attending Dr: Rossana Leach Ordering Physician: Rossana Leach Date of Service: 05/18/25 Procedure(s): US OB BPP w non-stress Accession Number(s): [id number] cc: Rossana Leach; JENNIFER SEE [address] [address] Patient Name: VIMAL FUNES MRN: [facility]:[id number] date: 2000 Sex: F Assigned Patient Location: [facility] Current Patient Location: Accession/Order Number: [id number] Exam Date: 05/18/2025 11:16 Report Date: 05/18/2025 [...] Acharya M.D. 05/18/2025 5:08 PM Dictation Location: [place] [address] Electronically authenticated by: [id number] Y Date: 05/18/2025 17:08 Dictated By: Heriberto Acharya M.D. Signed By: 05/18/252016 DD/ 07 TD/TT: Chart Picker: [facility] Radiology Study observation (narrative) [facility] US OB BPP W NON-STRESS Ordered By: Radiologist Radiology on 05-18-2025 [facility] [employer] Work Phone: Glucose random or fasting- P OCTOrdered By: Sheridan Smallwood on 05-13-2025 External Glucose Fasting Or Random (Fbs) 80 [facility] US OB BPP W NON-STRESS on 05-11-2025 [place] [address] Ultrasound Report Signed Patient: VIMAL FUNES MR#: [id number] : 2000 Acct:[id number] Age/Sex: 25 / F ADM Date: 05/11/25 Loc: [facility] 253-[address]: Rossana Leach Ordering Physician: Rossana Leach Date of Service: 05/11/25 Procedure(s): US OB BPP w non-stress Accession Number(s): [id number] cc: Rossana Leach; JENNIFER SEE [place] [address] Patient Name: VIMAL FUNES MRN: [id number] date: 2000 Sex: F Assigned Patient Location: [facility] Current Patient Location: [facility] Accession/Order Number: [id number] Exam Date: 05/11/2025 12:01 Report Date: 05/11/2025 12:02 At the request of: ROSSANA LEACH Procedure: US OB BPP w non-stress Biophysical profile. Reason for exam: Gestational diabetes COMPARISON: 05/04/2025 TECHNIQUE: Transabdominal imaging of the gravid uterus was obtained. FINDINGS: The repairer evaporator reports a BPP of 8 out of 8. DANYA is normal at 11.9 cm. heart rate 138 bpm. US/US OB BPP w non-stress IMPRESSION: BPP 8 out of 8. Impression dictated by: Bulmaro Arias Jr., D.O. 05/11/2025 12:02 PM Dictation Location[facility] [employer] Electronically authenticated by: [id number] Y Date: 05/11/2025 12:02 Dictated By: Bulmaro Arias M.D. Signed By: 05/11/25 1204 DD/ 1202 TD/TT: Chart Picker: [facility] Radiology, Radiologist, MD - 05/11/2025 [place] [address] Ultrasound Report Signed Patient: VIMAL FUNES MR#: [id number] : 2000 Acct:[id number] Age/Sex: 25 / F ADM Date: 05/11/25 Loc: [facility] 253-[address]: Rossana Leach Ordering Physician: Rossana Leach Date of Service: 05/11/25 Procedure(s): US OB BPP w non-stress Accession Number(s): [id number] cc: Rossana Leach; JENNIFER SEE [place] [id number] Patient Name: VIMAL FUNES MRN: [facility]:[id number] date: 2000 Sex: F Assigned Patient Location: [facility] Current Patient Location: [facility] Accession/Order Number: [id number] Exam Date: 05/11/2025 12:01 Report Date: 05/11/2025 12:02 At the request of: ROSSANA LEACH Procedure: US OB BPP w non-stress Biophysical profile. Reason for exam: Gestational diabetes COMPARISON: 05/04/2025 TECHNIQUE: Transabdominal imaging of the gravid uterus was obtained. FINDINGS: The repairer evaporator reports a BPP of 8 out of 8. DANYA is normal at 11.9 cm. heart rate 138 bpm. US/US OB BPP w non-stress IMPRESSION: BPP 8 out of 8. Impression dictated by: Bulmaro Arias Jr., D.O. 05/11/2025 12:02 PM Dictation Location: [employer] Electronically authenticated by: [id number] Y Date: 05/11/2025 12:02 Dictated By: Bulmaro Arias M.D. Signed By: 05/11/25 1204 DD/ 1202 TD/TT: Chart Picker: [facility] Radiology Study observation (narrative) [facility] US OB BPP W NON-STRESS Ordered By: Radiologist Radiology on 05-11-2025 [facility] [employer] Work Phone: TBH TOTAL PROTEIN 24 HOUR UR INEon 05-06-2025 TOTAL PROTEIN URINE RANDOM <6.0 NINF - 11.9 mg/dL [facility] TOTAL VOLUME 24 HOUR URINE 3700 mL/24hr [facility] [employer] 2nd hr Glucose Tolerance 100 gm loadon 05-04-2025 Glucose Tolerance Test 2 Hour 186 [facility] ALL CBC WITH AUTO DIFFon BASOPHILS ABSOLUTE AUTO 0 [facility] Basophils/100 WBC (Bld) 0.2 % 0.2 - 2.0 % [facility] Eosinophils/100 WBC (Bld) 2.6 % 0.9 - 7.0 % [facility] Erythrocyte distribution width (RBC) [Ratio] 12.7 % 11.0 - 15.0 % [facility] Hematocrit (Bld) [Volume fraction] 39.5 % 36.0 - 48.0 % [facility] Hemoglobin (Bld) [Mass/Vol] 13.7 g/dL 12.0 - 16.0 g/dL [facility] IMMATURE GRANULOCYTES ABS AUTO 0.05 High [facility] Immature granulocytes/100 WBC (Bld) 0.4 % 0.0 - 0.5 % [facility] Interpretation and review of laboratory results Abnormal [facility] LYMPHOCYTES ABSOLUTE AUTO 1.6 [facility] Lymphocytes/100 WBC (Bld) 12.6 % Low 20.5 - 60.0 % [facility] MCH (RBC) [Entitic mass] 31.9 pg 26.7 - 34.0 pg [facility] MCHC (RBC) [Mass/Vol] 34.7 g/dL 29.9 - 35.2 g/dL [facility] MCV (RBC) [Entitic vol] 92.1 fL 81.0 - 99.0 fL [facility] MONOCYTES ABSOLUTE AUTO 0.6 [facility] Monocytes/100 WBC (Bld) 5 % 1.7 - 12.0 % [facility] NEUTROPHILS ABSOLUTE AUTO 9.9 High [facility] Neutrophils/100 WBC (Bld) 79.2 % High 43.0 - 75.0 % [facility] Platelet mean volume (Bld) [Entitic vol] 11 fL 9.5 - 13.5 fL [facility] TBH EO # 0.3 [facility] TBH PLT 226 [facility] TBH RBC 4.29 [facility] TBH WBC 12.5 High [facility] Glucose tolerance, 1 houron 05-04-2025 Glucose Tolerance Test 1 Hour 234 [facility] Glucose tolerance, 3 hourson 05-04-2025 Glucose Tolerance Test 3 Hour 133 [facility] Glucose, tolerance fastingon 05-04-2025 Glucose Tolerance Test Fasting 108 [facility] No Panel Informationon 05-04 [facility] US OB BPP W NON-STRESS on 05-04-[address] [address] Ultrasound Report Signed Patient: VIMAL FUNES MR#: [id number] : 2000 Acct:[id number] Age/Sex: 25 / F ADM Date: 05/04/25 Loc: [facility] 250-[address]: Rossana Leach Ordering Physician: Rossana Leach Date of Service: 05/04/25 Procedure(s): US OB BPP w non-stress Accession Number(s): [id number] cc: Rossana Leach; JENNIFER SEE [address] [address] Patient Name: VIMAL FUNES MRN: [id number]:[id number] date: 2000 Sex: F Assigned Patient Location: [facility] Current Patient Location: [facility] Accession/Order Number: [id number] Exam Date: 05/04/2025 12:08 Report Date: 05/04/2025 12:09 At the request of: ROSSANA LEACH Procedure: US OB BPP w non-stress Biophysical profile. Reason for exam: Gestational diabetes COMPARISON: None TECHNIQUE: Transabdominal imaging of the gravid uterus was obtained. FINDINGS: The repairer evaporator reports a BPP of 8 out of 8. DANYA is normal at 12.4 cm. heart rate 150 bpm. US/US OB BPP w non-stress IMPRESSION: BPP 8 out of 8. Impression dictated by: Bulmaro Arias Jr., D.O. 05/04/2025 12:09 PM Dictation Location: [place] [address] Electronically authenticated by: [id number] Y Date: 05/04/2025 12:09 Dictated By: Bulmaro Arias M.D. Signed By: 05/04/25 1212 DD/ 1209 TD/TT: Chart Picker: [facility] Radiology, Radiologist, MD - 05/04/2025 [place] [address] Ultrasound Report Signed Patient: VIMAL FUNES MR#: [id number] : 2000 Acct:[id number] Age/Sex: 25 / F ADM Date: 05/04/25 Loc: [place] [address]: Rossana Leach Ordering Physician: Rossana Leach Date of Service: 05/04/25 Procedure(s): US OB BPP w non-stress Accession Number(s): [id number] cc: Rossana Leach; JENNIFER SEE [place] [id number] Patient Name: VIMAL FUNES MRN: [facility]:[id number] date: 2000 Sex: F Assigned Patient Location: [facility] Current Patient Location: [facility] Accession/Order Number: [id number] Exam Date: 05/04/2025 12:08 Report Date: 05/04/2025 12:09 At the request of: ROSSANA LEACH Procedure: US OB BPP w non-stress Biophysical profile. Reason for exam: Gestational diabetes COMPARISON: None TECHNIQUE: Transabdominal imaging of the gravid uterus was obtained. FINDINGS: The repairer evaporator reports a BPP of 8 out of 8. DANYA is normal at 12.4 cm. heart rate 150 bpm. US/US OB BPP w non-stress IMPRESSION: BPP 8 out of 8. Impression dictated by: Bulmaro Arias Jr., D.O. 05/04/2025 12:09 PM Dictation Location: [employer] Electronically authenticated by: [id number] Y Date: 05/04/2025 12:09 Dictated By: Bulmaro Arias M.D. Signed By: 05/04/25 1212 DD/ 1209 TD/TT: Chart Picker: [facility] Radiology Study observation (narrative) [facility] US OB BPP W NON-STRESS Ordered By: Radiologist Radiology on 05-04-2025 [facility] [employer] Work Phone: US OB GROWTHon 05-04-2025 [place] [address] Ultrasound Report Signed Patient: IVMAL FUNES MR#: [id number] : 2000 Acct:[id number] Age/Sex: 25 / F ADM Date: 05/04/25 Loc: [facility] 250-[address]: Rossana Leach Ordering Physician: Rossana Leach Date of Service: 05/04/25 Procedure(s): US OB growth Accession Number(s): [id number] cc: Rossana Leach; JENNIFER SEE [place] [id number] Patient Name: VIMAL FUNES MRN: [id number]:[id number] date: 2000 Sex: F Assigned Patient Location: [facility] Current Patient Location: [facility] Accession/Order Number: [id number] Exam Date: 05/04/2025 12:06 Report Date: 05/04/2025 [...] Jr., D.O. 05/04/2025 12:08 PM Dictation Location: [employer] Electronically authenticated by: [id number] Y Date: 05/04/2025 12:08 Dictated By: Bulmaro Arias M.D. Signed By: 05/04/25 1211 DD/ 1208 TD/TT: Chart Picker: [facility] Radiology, Radiologist, - 05/04/2025 [place] [address] Ultrasound Report Signed Patient: VIMAL FUNES MR#: [id number] : 2000 Acct:[id number] Age/Sex: 25 / F ADM Date: 05/04/25 Loc: [facility] 250-[address]: Rossana Leach Ordering Physician: Rossana Leach Date of Service: 05/04/25 Procedure(s): US OB growth Accession Number(s): [id number] cc: JENNIFER Watkins [place] [address] Patient Name: VIMAL FUNES MRN: [facility]:[id number] date: 2000 Sex: F Assigned Patient Location: [facility] Current Patient Location: [facility] Accession/Order Number: [id number] Exam Date: 05/04/2025 12:06 Report Date: 05/04/2025 [...] Jr., D.O. 05/04/2025 12:08 PM Dictation Location: [employer] Electronically authenticated by: [id number] Y Date: 05/04/2025 12:08 Dictated By: Bulmaro Arias M.D. Signed By: 05/04/25 1211 DD/ 1208 TD/TT: Chart Picker: [facility] Radiology Study observation (narrative) [facility] OB GROWTHOrdered By: Jeimy ologist Radiology on 05-04-2025 [facility] [employer] Work Phone: Urinalysis macro (dipstick) panel (U)on 04-30-2025 Bilirubin, UA Negative Negative - 4(70) +++ mg/dL [facility] Blood, UA Negative Negative - 50 Jason/mcL [facility] Clarity, UA Clear [facility] re Color, UA Yellow [facility] e Glucose, UA Positive Negative - 2000(110) ++++ mg/dL [facility] Interpretation and review of laboratory results Abnormal [facility] Ketones, UA Negative Negative - 160(16) ++++ mg/dL [facility] Leukocytes, UA Positive Negative - 500+++ Carlos/mcL [facility] Nitrite, UA Negative Negative - Positive [facility] pH, UA 6 5 - 9 [facility] [employer] Protein, UA Negative Negative - 2000(20) ++++ mg/dL [facility] Spec Grav, UA 1.01 1 - 1.03 [facility] Urobilinogen, UA 1.0 0.2 - 12 mg/dL [facility] ALL CBC WITH AUTO DIFFon BASOPHILS ABSOLUTE AUTO 0 [facility] Basophils/100 WBC (Bld) 0.2 % 0.2 - 2.0 % [facility] Eosinophils/100 WBC (Bld) 2.2 % 0.9 - 7.0 % [facility] Erythrocyte distribution width (RBC) [Ratio] 12.9 % 11.0 - 15.0 % [facility] Hematocrit (Bld) [Volume fraction] 40 % 36.0 - 48.0 % [facility] Hemoglobin (Bld) [Mass/Vol] 13.6 g/dL 12.0 - 16.0 g/dL [facility] IMMATURE GRANULOCYTES ABS AUTO 0.04 High [facility] Immature granulocytes/100 WBC (Bld) 0.3 % 0.0 - 0.5 % [facility] Interpretation and review of laboratory results Abnormal [facility] LYMPHOCYTES ABSOLUTE AUTO 1.4 [facility] Lymphocytes/100 WBC (Bld) 10.8 % Low 20.5 - 60.0 % [facility] MCH (RBC) [Entitic mass] 31.7 pg 26.7 - 34.0 pg [facility] MCHC (RBC) [Mass/Vol] 34 g/dL 29.9 - 35.2 g/dL [facility] MCV (RBC) [Entitic vol] 93.2 fL 81.0 - 99.0 fL [facility] MONOCYTES ABSOLUTE AUTO 0.5 [facility] Monocytes/100 WBC (Bld) 4.3 % 1.7 - 12.0 % [facility] NEUTROPHILS ABSOLUTE AUTO 10.2 High [facility] Neutrophils/100 WBC (Bld) 82.2 % High 43.0 - 75.0 % [facility] Platelet mean volume (Bld) [Entitic vol] 10.6 fL 9.5 - 13.5 fL [facility] TBH EO # 0.3 [facility] TBH PLT 202 [facility] TB RBC 4.29 [facility] TB WBC 12.5 High [facility] Glucose 1h post 50g loadon 0 04-27-2025 Glucose, 1 hr PP 50GM dose 171 [facility] No Panel Informationon 04-27 [facility] Urinalysis macro (dipstick) panel (U)on 04-25-2025 Bilirubin, UA Negative Negative - 4(70) +++ mg/dL [facility] Blood, UA Negative Negative - 50 Jason/mcL [facility] Clarity, UA Clear [facility] re Color, UA Yellow [facility] Glucose, UA Negative Negative - 1999(110) ++++ mg/dL [facility] Interpretation and review of laboratory results Normal [facility] Ketones, UA Negative Negative - 160(16) ++++ mg/dL [facility] Leukocytes, UA Negative Negative - 500+++ Carlos/mcL [facility] Nitrite, UA Negative Negative - Positive [facility] pH, UA 6.5 5 - 9 [facility] Protein, UA Negative Negative - 1999(20) ++++ mg/dL [facility] Spec Grav, UA 1.01 1 - 1.03 [facility] Urobilinogen, UA 0.2 0.2 - 12 mg/dL [facility] Urinalysis macro (dipstick) panel (U)on 04-11-2025 Bilirubin, UA Negative Negative - 4(70) +++ mg/dL [facility] Blood, UA Negative Negative - 50 Jason/mcL [facility] Clarity, UA Clear [facility] Color, UA Yellow [facility] Glucose, UA Negative Negative - 1999(110) ++++ mg/dL [facility] Interpretation and review of laboratory results Normal [facility] Ketones, UA Negative Negative - 160(16) ++++ mg/dL [facility] Healthcare Leukocytes, UA Negative Negative - 500+++ Carlos/mcL [facility] Nitrite, UA Negative Negative - Positive [facility] pH, UA 7 5 - 9 [facility] Protein, UA Negative Negative - 1999(20) ++++ mg/dL [facility] Spec Grav, UA 1.005 1 - 1.03 [facility] Urobilinogen, UA 1.0 0.2 - 12 mg/dL [facility] US OB INCOMPLETE ANATOMYon 0 03-25-2025 [place] [address] Ultrasound Report Signed Patient: VIMAL FUNES MR#: [id number] : 2000 Acct:[id number] Age/Sex: 24 / F ADM Date: 03/23/25 Loc: US Attending Dr: Jose Rodriguez D.O. Ordering Physician: Jose Rodriguez D.O. Date of Service: 06/28/25 Procedure(s): US OB incomplete anatomy Accession Number(s): [id number] cc: JENNIFER SEE ; Jose Rodirguez D.O. [place] [phone] Patient Name: VIMAL FUNES MRN: [facility]:[id number] date: 2000 Sex: F Assigned Patient Location: US Current Patient Location: US Accession/Order Number: [id number] Exam Date: 03/25/2025 08:23 Report Date: 03/25/2025 [...] Brown M.D. 03/25/2025 8:25 AM Dictation Location: [place] [address] Electronically authenticated by: [id number] Y Date: 03/25/2025 08:25 Dictated By: Meghana Brown M.D. Signed By: 03/25/25826 DD/ 4 TD/TT: Chart Picker: [facility] Radiology, Radiologist, MD - 03/25/2025 [place] [address] Ultrasound Report Signed Patient: VIMAL FUNES MR#: [id number] : 2000 Acct:[id number] Age/Sex: 24 / F ADM Date: 03/23/25 Loc: US Attending Dr: Jose Rodriguez D.O. Ordering Physician: Jose Rodriguez D.O. Date of Service: 03/23/25 Procedure(s): US OB incomplete anatomy Accession Number(s): [id number] cc: JENNIFER SEE ; Jose Rodriguez D.O. [address] [address] Patient Name: VIMAL FUNES MRN: [id number]:[id number] date: 2000 Sex: F Assigned Patient Location: US Current Patient Location: US Accession/Order Number: [id number] Exam Date: 03/25/2025 08:23 Report Date: 03/25/2025 08:25 At the request of: JOES RODRIGUEZ DO Procedure: US OB incomplete anatomy [...] Brown M.D. 03/25/2025 8:25 AM Dictation Location: [place] [address] Electronically authenticated by: [id number] Y Date: 03/25/2025 08:25 Dictated By: Meghana Brown M.D. Signed By: 03/25/25826 DD/ 4 TD/TT: Chart Picker: [facility] Kluster Radiology Study observation (narrative) [facility] OB INCOMPLETE ANATOMYOrde red By: Radiologist Radiology on 03-25-2025 [facility] [employer] Work Phone: Urinalysis macro (dipstick) panel (U)on 03-14-2025 Bilirubin, UA Negative Negative - 4(70) +++ mg/dL [facility] Blood, UA Negative Negative - 50 Jason/mcL [facility] Clarity, UA Clear [facility] re Color, UA Yellow [facility] Glucose, UA Negative Negative - 1999(110) ++++ mg/dL [facility] Interpretation and review of laboratory results Normal [facility] Ketones, UA Negative Negative - 160(16) ++++ mg/dL [facility] Leukocytes, UA Negative Negative - 500+++ Carlos/mcL [facility] Nitrite, UA Negative Negative - Positive [facility] pH, UA 7 5 - 9 [facility] Protein, UA Negative Negative - 1999(20) ++++ mg/dL [facility] Spec Grav, UA 1.01 1 - 1.03 [facility] Urobilinogen, UA 0.2 0.2 - 12 mg/dL [facility] Health[facility] e No Panel InformationOrdered By: Radiologist Radiology on 03-08-2025 [facility] Work Phone: No Panel Informationon 03-08 Radiology Study observation (narrative) [facility] US OB ANATOMYon 03-08-2025 [place] [address] Ultrasound Report Signed Patient: VIMAL FUNES MR#: [id number] : 2000 Acct:[id number] Age/Sex: 24 / F ADM Date: 03/08/25 Loc: US Attending Dr: Jose Rodriguez D.O. Ordering Physician: Jose Rodriguez D.O. Date of Service: 03/08/25 Procedure(s): US OB anatomy Accession Number(s): [id number] cc: JENNIFER SEE ; Jose Rodriguez D.O. [place] [id number] Patient Name: VIMAL FUNES MRN: [facility]:[id number] date: 2000 Sex: F Assigned Patient Location: US Current Patient Location: US Accession/Order Number: [id number] Exam Date: 03/08/2025 20:31 Report Date: 03/08/2025 [...] Knapp M.D. 03/08/2025 8:36 PM Dictation Location: [place] [address] Electronically authenticated by: [id number] Y Date: 03/08/2025 20:36 Dictated By: Shivam Knapp D.O. Signed By: 03/08/252037 DD/ 35 TD/TT: Chart Picker: [facility] Radiology, Radiologist, MD - 03/08/2025 [place] [address] Ultrasound Report Signed Patient: VIMAL FUNES MR#: [id number] : 2000 Acct:[id number] Age/Sex: 24 / F ADM Date: 03/08/25 Loc: US Attending Dr: Jose Rodriguez D.O. Ordering Physician: Jose Rodriguez D.O. Date of Service: 03/08/25 Procedure(s): US OB anatomy Accession Number(s): [id number] cc: JENNIFER SEE Corey D.O. The [place] [id number] Patient Name: VIMAL FUNES MRN: [facility]:[id number] date: 2000 Sex: F Assigned Patient Location: US Current Patient Location: US Accession/Order Number: [id number] Exam Date: 03/08/2025 20:31 Report Date: 03/08/2025 [...] Knapp M.D. 03/08/2025 8:36 PM Dictation Location: [place] [address] Electronically authenticated by: [id number] Y Date: 03/08/2025 20:36 Dictated By: Shivam Knapp D.O. Signed By: 03/08/252037 DD/ 35 TD/TT: Chart Picker: [email or web address] CERVICAL LENGTHon 02-24 [place] [address] Ultrasound Report Signed Patient: VIMAL FUNES MR#: [id number] : 2000 Acct:[id number] Age/Sex: 24 / F ADM Date: 03/08/25 Loc: US Attending Dr: Jose Rodriguez D.O. Ordering Physician: Jose Rodriguez D.O. Date of Service: 03/08/25 Procedure(s): US OB cervical length Accession Number(s): [id number] cc: JENNIFER SEE ; Jose Rodriguez D.O. The [address] [id number] Patient Name: VIMAL FUNES MRN: [facility]:[id number] date: 2000 Sex: F Assigned Patient Location: US Current Patient Location: US Accession/Order Number: [id number] Exam Date: 03/08/2025 20:31 Report Date: 03/08/2025 [...] Knapp M.D. 03/08/2025 8:36 PM Dictation Location: [employer] Electronically authenticated by: [id number] Y Date: 03/08/2025 20:36 Dictated By: Shivam Knapp D.O. Signed By: 03/08/252037 DD/ 35 TD/TT: Chart Picker: [facility] Radiology, Radiologist, - 03/08/2025 The [place] [id number] Ultrasound Report Signed Patient: VIMAL FUNES MR#: [id number] : 2000 Acct:[id number] Age/Sex: 24 / F ADM Date: 03/08/25 Loc: US Attending Dr: Jose Rodriguez D.O. Ordering Physician: Jose Rodriguez D.O. Date of Service: 03/08/25 Procedure(s): US OB cervical length Accession Number(s): [id number] cc: JENNIFER SEE ; Jose Rodriguez D.O. [place] [address] Patient Name: VIMAL FUNES MRN: [id number]:[id number] date: 2000 Sex: F Assigned Patient Location: US Current Patient Location: US Accession/Order Number: [id number] Exam Date: 03/08/2025 20:31 Report Date: 03/08/2025 [...] Knapp M.D. 03/08/2025 8:36 PM Dictation Location: [employer] Electronically authenticated by: [id number] Y Date: 03/08/2025 20:36 Dictated By: Shivam Knapp D.O. Signed By: 03/08/252037 DD/ 35 TD/TT: Chart Picker: [facility] IGP,APTIMA HPV,AGE GDLNon AGE GDLN ACOG TESTING Note . [facility] Comment on above: TESTS RESULT FLAG UN ITS REF RANGE LAB Clinician Provided Cytology Information Source.............Endocervix No. of containers..01 ThinPrep Vial Age Algo ACOG Yris... FLAG LEGEND: L-Low Normal,H-High Normal,LL-Alert Low,HH-Alert High <-Panic Low,>-Panic High,A-Abnormal,AA-Critical Abnormal Performed at: 01 =[address] [facility] [address] Jenise Byrne MD, IGP, RFX APTIMA HPV ASCU Note . [facility] Comment on above: TESTS RESULT FLAG UN ITS REF RANGE LAB DIAGNOSIS: 02 NEGATIVE FOR INTRAEPITHELIAL LESION OR MALIGNANCY. Specimen adequacy: 02 Satisfactory for evaluation. Endocervical and/or squamous metaplastic cells (endocervical component) are present. Performed by: Hussein Alvarez Atg Java Developer (ASCP) . 02 Note: Note 02 The [...] <-Panic Low,>-Panic High,A-Abnormal,AA-Critical Abnormal Performed at: [address] [place] [address] Jenise Byrne MD, Performed at: = - [facility] [address] [id number] Residential Sales Manager: Jenise Byrne MD, Phone: [phone] Performed at: [facility] [address] [id number] Residential Sales Manager: Jenise Byrne MD, Phone: [phone] SPATULA-ALONE ENDOCERVIX CLIN[facility] RECURRENT VAGINITIS (HTRX)on 02-22-2025 ATOPOBIUM VAGINAE 0 [facility] althcare ATOPOBIUM VAGINAE Not detected [facility] BVAB 2,3 (BACTERIAL VAGINOSIS ASSOCIATED BACTERIA 2, 3); MOBILUNCUS SPP 0 [facility] BVAB 2,3 (BACTERIAL VAGINOSIS ASSOCIATED BACTERIA 2, 3); MOBILUNCUS SPP Not detected [facility] SIMEON ALBICANS, PARAPSILOSIS, TROPICALIS 0 [facility] Healthcare SIMEON ALBICANS, PARAPSILOSIS, TROPICALIS Not detected [facility] SIMEON GLABRATA 0 [facility] SIMEON GLABRATA Not detected [facility] SIMEON KRUSEI 0 [facility] SIMEON KRUSEI Not detected [facility] CHLAMYDIA TRACHOMATIS 0 [facility] CHLAMYDIA TRACHOMATIS Not detected N [facility] GARDNERELLA VAGINALIS 0 [facility] GARDNERELLA VAGINALIS Not detected N [facility] MEGASPHAERA (TYPES 1, 2) 0 [facility] MEGASPHAERA (TYPES 1, 2) Not detected [facility] MYCOPLASMA GENITALIUM 0 [facility] MYCOPLASMA GENITALIUM Not detected N [facility] NEISSERIA GONORRHOEAE 0 [facility] NEISSERIA GONORRHOEAE Not detected N [facility] TRICHOMONAS VAGINALIS 0 [facility] TRICHOMONAS VAGINALIS Not detected [facility] Urinalysis macro (dipstick) panel (U)on 02-20-2025 Bilirubin, UA Negative Negative - 4(70) +++ mg/dL [facility] Blood, UA Negative Negative - 50 Jason/mcL [facility] Clarity, UA Clear [facility] re Color, UA Yellow [facility] Glucose, UA Negative Negative - 1999(110) ++++ mg/dL [facility] Interpretation and review of laboratory results Abnormal [facility] Ketones, UA Negative Negative - 160(16) ++++ mg/dL [facility] Leukocytes, UA Negative Negative - 500+++ Carlos/mcL [facility] Nitrite, UA Negative Negative - Positive [facility] pH, UA 7 5 - 9 [facility] Protein, UA Negative Negative - 1999(20) ++++ mg/dL [facility] Spec Grav, UA 1.01 1 - 1.03 [facility] Urobilinogen, UA 0.2 0.2 - 12 mg/dL [facility] Unlisted Lab Teston 01-16-20 [facility] Urinalysis macro (dipstick) panel (U)on 01-14-2025 Bilirubin, UA Negative Negative - 4(70) +++ mg/dL [facility] Blood, UA Positive Negative - 50 Jason/mcL [facility] Comment on above: trace-intact Clarity, UA Clear [facility] re Color, UA Yellow [facility] Glucose, UA Negative Negative - 1999(110) ++++ mg/dL [facility] Interpretation and review of laboratory results Abnormal [facility] Ketones, UA Negative Negative - 160(16) ++++ mg/dL [facility] Leukocytes, UA Negative Negative - 500+++ Carlos/mcL [facility] Nitrite, UA Negative Negative - Positive [facility] pH, UA 6 5 - 9 [facility] e Protein, UA Negative Negative - 1999(20) ++++ mg/dL [facility] Spec Grav, UA 1.005 1 - 1.03 [facility] Urobilinogen, UA 0.2 0.2 - 12 mg/dL [facility] Free Cell DNA (Non-Pro Medica Send Out)on 01-13-2025 [facility] ALL CBC WITH AUTO DIFFon BASOPHILS ABSOLUTE AUTO 0 [facility] Basophils/100 WBC (Bld) 0.4 % 0.2 - 2.0 % [facility] Eosinophils/100 WBC (Bld) 1.7 % 0.9 - 7.0 % [facility] Erythrocyte distribution width (RBC) [Ratio] 12.3 % 11.0 - 15.0 % [facility] Hematocrit (Bld) [Volume fraction] 42.5 % 36.0 - 48.0 % [facility] Hemoglobin (Bld) [Mass/Vol] 14.7 g/dL 12.0 - 16.0 g/dL [facility] IMMATURE GRANULOCYTES ABS AUTO 0.02 [facility] Immature granulocytes/100 WBC (Bld) 0.2 % 0.0 - 0.5 % [facility] Interpretation and review of laboratory results Abnormal [facility] LYMPHOCYTES ABSOLUTE AUTO 1.4 [facility] Lymphocytes/100 WBC (Bld) 15.4 % Low 20.5 - 60.0 % [facility] MCH (RBC) [Entitic mass] 31.6 pg 26.7 - 34.0 pg [facility] MCHC (RBC) [Mass/Vol] 34.6 g/dL 29.9 - 35.2 g/dL [facility] MCV (RBC) [Entitic vol] 91.4 fL 81.0 - 99.0 fL [facility] MONOCYTES ABSOLUTE AUTO 0.5 [facility] Monocytes/100 WBC (Bld) 5.4 % 1.7 - 12.0 % [facility] NEUTROPHILS ABSOLUTE AUTO 7 High [facility] Neutrophils/100 WBC (Bld) 76.9 % High 43.0 - 75.0 % [facility] Platelet mean volume (Bld) [Entitic vol] 10.1 fL 9.5 - 13.5 fL [facility] TBH EO # 0.2 [facility] TBH PLT 216 [facility] TB RBC 4.65 [facility] TB WBC 9.2 [facility] Hemoglobin A1con 01-05-2025 HbA1c (Bld) [Mass fraction] 5 % 4.0 - 6.0 % [facility] No Panel Informationon 01-05 [facility] Healthcar [...] by RADHA POE II, MD, PHD at 21-Mar-2025 08:35:59 PM [facility] Normal Not Available Comment on above: Order Comment: US OB TRANSVAGINAL No LMP recorded. TBH PREG QUANT HCGon 025 HCG QUANTITATIVE 57014 mIU/mL [facility] Comment on above: [...] WEEKS 15,000-200,000 6-8 WEEKS 10,000-100,000 2-3 MONTHS [facility] ALL CBC WITH AUTO DIFFon BASOPHILS ABSOLUTE AUTO 0 [facility] Basophils/100 WBC (Bld) 0.5 % 0.2 - 2.0 % [facility] Eosinophils/100 WBC (Bld) 6.2 % 0.9 - 7.0 % [facility] Erythrocyte distribution width (RBC) [Ratio] 11.9 % 11.0 - 15.0 % [facility] Hematocrit (Bld) [Volume fraction] 43.8 % 36.0 - 48.0 % [facility] Hemoglobin (Bld) [Mass/Vol] 14.8 g/dL 12.0 - 16.0 g/dL [facility] IMMATURE GRANULOCYTES ABS AUTO 0.02 [facility] Immature granulocytes/100 WBC (Bld) 0.2 % 0.0 - 0.5 % [facility] LYMPHOCYTES ABSOLUTE AUTO 2 [facility] Lymphocytes/100 WBC (Bld) 22.1 % 20.5 - 60.0 % [facility] MCH (RBC) [Entitic mass] 31.7 pg 26.7 - 34.0 pg [facility] MCHC (RBC) [Mass/Vol] 33.8 g/dL 29.9 - 35.2 g/dL [facility] MCV (RBC) [Entitic vol] 93.8 fL 81.0 - 99.0 fL [facility] MONOCYTES ABSOLUTE AUTO 0.5 [facility] Monocytes/100 WBC (Bld) 5.3 % 1.7 - 12.0 % [facility] NEUTROPHILS ABSOLUTE AUTO 5.8 [facility] Neutrophils/100 WBC (Bld) 65.7 % 43.0 - 75.0 % [facility] Platelet mean volume (Bld) [Entitic vol] 10 fL 9.5 - 13.5 fL [facility] TBH EO # 0.6 [facility] TB PLT 236 [facility] TB RBC 4.67 [facility] TB[facility] WBC 8.9 [facility] CLIN[facility] [place] 08-10-2024 L Specimen: [id number] Received: 08/10/24 Status: CAROL Hoang Num: [id number] Spec Type: Surgical Subm Dr: Jose Rodriguez Tissues: A Products of Conception - Spontaneous or Missed (CONTENTS OF CONCEPT Procedures: HE/2, Gross/Micro L4 Age/ Patient Sex Location Account Attending Physician Vimal Funes LABELL [id number] Jose Rodriguez SPEC NUM: [id number] RECD: 08/10/24 STATUS: CAROL HOANG NUM: [id number] CAROLIN: 08/10/24[facility]: Jose Rodriguez ENTERED: 08/10/24 [facility] DR: Rafia,Lab SPEC TYPE: Surgical DEPT: MONICA ALTMAN ENTERED BY: [id number] RECV BY: [id number] ORDERED: HE/2, Gross/Micro L4 ORDERED: HE/2, Gross/Micro [...] villi and decidua. No tissue is identified. Process Controls Technician sections of the chorionic villi are submitted in cassette A1 with airport representative sections of the decidua is submitted in cassette A2. (2, ss, [id number] A) CPT Codes 06914 Specimen: [id number] Received: 08/10/24 Status: CAROL Hoang Num: [id number] Spec Type: Surgical Subm Dr: Jose Rodriguez Tissues: A Products of Conception - Spontaneous or Missed (CONTENTS OF CONCEPT Procedures: HE/Odell Flores/Agusto L4 Patient: Vimal Funes [id number] (Continued) Signed (signature on file) Josh Aragon MD 08/13/24 1647 Normal [facility] TBH PREG QUANT HCGon 024 HCG QUANTITATIVE 240 mIU/mL [facility] Comment on above: 5-50 0.2-1 WEEK 50-500 1-2 WEEKS 100-5,000 2-3 WEEKS 500-10,000 3-4 WEEKS 1,000-50,000 4-5 WEEKS 10,000-100,000 5-6 WEEKS 15,000-200,000 6-8 WEEKS 10,000-100,000 2-3 MONTHS [facility] ALL CBC WITH AUTO DIFFon BASOPHILS ABSOLUTE AUTO 0.1 [facility] Basophils/100 WBC (Bld) 0.5 % 0.2 - 2.0 % [facility] Eosinophils/100 WBC (Bld) 2.8 % 0.9 - 7.0 % [facility] Erythrocyte distribution width (RBC) [Ratio] 11.9 % 11.0 - 15.0 % [facility] Hematocrit (Bld) [Volume fraction] 44.7 % 36.0 - 48.0 % [facility] Hemoglobin (Bld) [Mass/Vol] 15.3 g/dL 12.0 - 16.0 g/dL [facility] IMMATURE GRANULOCYTES ABS AUTO 0.03 [facility] Immature granulocytes/100 WBC (Bld) 0.3 % 0.0 - 0.5 % [facility] Interpretation and review of laboratory results Abnormal [facility] LYMPHOCYTES ABSOLUTE AUTO 1.6 [facility] Lymphocytes/100 WBC (Bld) 14.9 % Low 20.5 - 60.0 % [facility] MCH (RBC) [Entitic mass] 31.7 pg 26.7 - 34.0 pg [facility] MCHC (RBC) [Mass/Vol] 34.2 g/dL 29.9 - 35.2 g/dL [facility] MCV (RBC) [Entitic vol] 92.7 fL 81.0 - 99.0 fL [facility] MONOCYTES ABSOLUTE AUTO 0.4 [facility] Monocytes/100 WBC (Bld) 3.7 % 1.7 - 12.0 % [facility] NEUTROPHILS ABSOLUTE AUTO 8.2 High [facility] Neutrophils/100 WBC (Bld) 77.8 % High 43.0 - 75.0 % [facility] Platelet mean volume (Bld) [Entitic vol] 10 fL 9.5 - 13.5 fL [facility] TBH EO # 0.3 [facility] PLT 263 [facility] RBC 4.82 [facility] WBC 10.6 [facility] e CLINISYNC No Panel Informationon 07-21 [facility] DRUG SCREEN RAPID (URINE )on 07-21-2024 AMPHETAMINE SCREEN URINE Negative NEGATIVE [facility] BARBITURATES SCREEN URINE Negative NEGATIVE [facility] BENZODIAZEPINES SCREEN URINE Negative NEGATIVE [facility] BUPRENORPHINE SCREEN URINE Negative NEGATIVE [facility] Comment on above: DRUG CLASS TEST SYST [...] 300 ng/mL CANNABINOID SCREEN URINE Negative NEGATIVE [facility] COCAINE SCREEN URINE Negative NEGATIVE [facility] METHADONE SCREEN URINE Negative NEGATIVE NO [facility] METHAMPHETAMINES SCREEN URINE Negative NEGATIVE [facility] OPIATE SCREEN URINE Negative NEGATIVE [facility] OXYCODONE SCREEN URINE Negative NEGATIVE NO [facility] PHENCYCLIDINE SCREEN URINE Negative NEGATIVE [facility] TRICYCLIC ANTIDEPRESSANT URINE Negative NEGATIVE [facility] REEFLEX IF POSITIVE [facility]IN[facility] HCG ( test) Ql (U)o n 06-29-2024 Interpretation and review of laboratory results Abnormal [facility] Preg Test, Ur Positive [facility] Urinalysis macro (dipstick) panel (U)on 06-29-2024 Bilirubin, UA Negative Negative - 4(70) +++ mg/dL [facility] Blood, UA Negative Negative - 50 Jason/mcL [facility] Clarity, UA Clear [facility] re Color, UA Yellow [facility] e Glucose, UA Negative Negative - 2000(110) ++++ mg/dL [facility] Interpretation and review of laboratory results Normal [facility] Ketones, UA Negative Negative - 160(16) ++++ mg/dL [facility] Leukocytes, UA Negative Negative - 500+++ Carlos/mcL [facility] Nitrite, UA Negative Negative - Positive [facility] pH, UA 7.0 5 - 9 [facility] Protein, UA Negative Negative - 2000(20) ++++ mg/dL [facility] Spec Grav, UA 1.015 1 - 1.03 [facility] Urobilinogen, UA 0.2 0.2 - 12 mg/dL [facility] XR hand RT min 3V*on 023 XR hand RT min 3V* [facility] [employer] Other XR hand RT min 3V* [facility] [employer] Other XR hand RT min 3V* [address] [place] [address] [employer] Other XR hand RT min 3V* [place] [address] [employer] Other XR hand RT min 3V* XRay Report [employer] Other XR hand RT min 3V* Signed [employer] Other XR hand RT min 3V* Patient: Vimal Funes MR#: [id number] [employer] Other XR hand RT min 3V* 18 [employer] Other XR hand RT min 3V* : 2000 Acct:[id number] [employer] Other XR hand RT min 3V* Age/Sex: 22 / F ADM Date: 12/26/22 [employer] Other XR hand RT min 3V* Loc: XDUCLY Room: Type: [facility] [employer] Other XR hand RT min 3V* Attending Dr: Jennifer Huston CASINO ATTENDANT-C [employer] Other XR hand RT min 3V* Copies to: JEFFERY Rodriguez [employer] Other XR hand RT min 3V* Ordering Provider: JEFFERY Rodriguez [employer] Other XR hand RT min 3V* Date of Service: 12/26/22 [employer] Other XR hand RT min 3V* XR/XR hand RT min 3V*: RIGHT HAND INJURY [employer] Other XR hand RT min 3V* RIGHT HAND - 4 views [employer] Other XR hand RT min 3V* REASON FOR EXAM: Patient had right thumb hyperextended yesterday when trying to open the door. Now [employer] Other XR hand RT min 3V* with pain. [employer] Other XR hand RT min 3V* COMPARISON: None [employer] Other XR hand RT min 3V* FINDINGS: [employer] Other XR hand RT min 3V* No focal soft tissue abnormality. There appears to be avulsion fracture involving the base of the [employer] Other XR hand RT min 3V* distal phalanx of the thumb. Joint spaces appear maintained. No bony erosions. [employer] Other XR hand RT min 3V* XR/XR hand RT min 3V* [employer] Other XR hand RT min 3V* IMPRESSION: [employer] Other XR hand RT min 3V* AVULSION FRACTURE INVOLVING THE BASE OF THE DISTAL PHALANX OF THE THUMB. [employer] Other XR hand RT min 3V* Impression dictated by: Bulmaro Arias Jr., D.O.12/26/2022 1:44 PM [employer] Other XR hand RT min 3V* Dictation Location: RADIO-PC-15 [employer] Other XR hand RT min 3V* Transcribed By: PWS 12/26/22 1344 [employer] Other XR hand RT min 3V* Dictated By: Bulmaro Arias Jr, DO 12/26/22 1343 [employer] Other XR hand RT min 3V* Signed By: [employer] Other XR hand RT min 3V* 12/26/22 1343 Nor [employer] Other PAP ACOG PANEL 2: 22 to 30on 11-09-2022 . . Normal [facility] Comment on above: Performed By: #### [id number] ####[facility] [address] [place] [address]DrGene Mancini Age Gdln ACOG Testing [facility] Comment on above: Performed By: #### [id number] ####[facility] [address] [place] [address]DrGene Mancini DIAGNOSIS: Comment [facility] Comment on above: Result Comment: NEGA TIVE FOR INTRAEPITHELIAL LESION OR MALIGNANCY. Performed By: #### [id number] ####[facility] [address] [place], [place] [address]DrGene Mancini Methodology: Comment [facility] Comment on above: Result Comment: This liquid based ThinPrep(R) pap test was screened with the use of an image guided system. Performed By: #### 4 [id number] ####[facility] [address] [place], [place] [address]DrGene Mancini Note: Comment [facility] Comment on above: Result Comment: The Pap smear is a screening test designed to aid in the detection of premalignant and malignant conditions of the uterine cervix. It is not a diagnostic procedure and should not be used as the sole means of detecting cervical cancer. Both false-positive and false-negative reports do occur. . Performed By: #### [id number] ####[facility] [address] [place] [address]Dr. Donis Mancini Performed by: Comment Normal [facility] [facility] Comment on above: Result Comment: [employer] Technician (ASCP) Performed By: #### [id number] ####[facility] [address] [place] [address]DrGene Mancini Reflex Criteria: Comment Normal [facility] Comment on above: Result Comment: The HPV DNA reflex criteria were not met with this specimen result therefore, no HPV testing was performed. . Performed By: #### [id number] ####[facility] [address] [place] [address]Dr. Donis Mancini Specimen adequacy: Comment Normal [facility] Comment on above: Result Comment: Sati sfactory for evaluation. Endocervical and/or squamous metaplastic cells (endocervical component) are present. Performed By: #### [id number] ####[facility] [address] [place] [address]Dr. Donis Mancini Cytology Cervical or vaginal smear or scraping studyOrdered By: Jael Nix on 11-02-2022 [facility] e CBC AUTO DIFFon 08-11-2022 BASO # 0.0 103/ul Normal 0.0-0.1 [facility] Comment on above: Performed By: #### C T/NGNA #### [facility] [address] [place] [address] Dr. Donis Mancini Basophils/100 WBC (Bld) 0.2 % Normal 0.2-2.0 [facility] Comment on above: Performed By: #### C T/NGNA #### [facility] [address] [place] [address] Dr. Donis Mancini EO # 0.1 103/ul Normal 0.0-0.7 [facility] Comment on above: Performed By: #### C T/NGNA #### [facility] [address] [place] [address] Dr. Donis Mancini Eosinophils/100 WBC (Bld) 0.5 % Critically low 0.9-7.0 [facility] Comment on above: Performed By: #### C T/NGNA #### [facility] [address] [place] [address] Dr. Donis Mancini Erythrocyte distribution width (RBC) [Ratio] 12.5 % Normal 11.0-15.0 [facility] Comment on above: Performed By: #### C T/NGNA #### [facility] [address] [place] [address] Dr. Donis Mancini Hematocrit (Bld) [Volume fraction] 35.9 % Critically low 36.0-48.0 [facility] Comment on above: Performed By: #### C T/NGNA #### [facility] [address] [place] [address] Dr. Donis Mancini Hemoglobin (Bld) [Mass/Vol] 12.4 g/dL Normal 12.0-16.0 [facility] Comment on above: Result Comment: michelet ent delivered Performed By: #### C T/NGNA #### [facility] [address] [place] [address] Dr. Donis Mancini IG # 0.10 10e3/ul Critically high 0.00-0.03 [facility] Comment on above: Performed By: #### C T/NGNA #### [facility] [address] [place] [address] Dr. Donis Mancini IG % 0.5 % Normal 0.0-0.5 [facility] Comment on above: Performed By: #### C T/NGNA #### [facility] [address] [place] [address] Dr. Donis Mancini LYMPH # 1.5 103/ul Normal 1.2-3.8 [facility] Comment on above: Performed By: #### C T/NGNA #### [facility] [address] [place] [address] Dr. Donis Mancini Lymphocytes/100 WBC (Bld) 7.6 % Critically low 20.5-60.0 [facility] Comment on above: Performed By: #### C T/NGNA #### [facility] [address] [address] [address] Donis Mancini MANUAL DIFF REQ NO Normal [facility] Comment on above: Performed By: #### C T/NGNA #### [facility] [address] [place] [address] Dr. Donis Mancini MCH (RBC) [Entitic mass] 32.2 pg Normal 26.7-34.0 [facility] Comment on above: Performed By: #### C T/NGNA #### [facility] [address] [place] [address] Dr. Donis Mancini MCHC (RBC) [Mass/Vol] 34.5 g/dL Normal 29.9-35.2 [facility] Comment on above: Performed By: #### C T/NGNA #### [facility] [address] [place] [address] Dr. Donis Mancini MCV (RBC) [Entitic vol] 93.2 fL Normal 81.0-99.0 [facility] Comment on above: Performed By: #### C T/NGNA #### [facility] [address] [place] [address] Dr. Donis Mancini MONO # 1.3 103/ul Critically high 0.3-0.8 [facility] Comment on above: Performed By: #### C T/NGNA #### [facility] [address] [place] [address] Dr. Donis Mancini Monocytes/100 WBC (Bld) 6.8 % Normal 1.7-12.0 [facility] Comment on above: Performed By: #### C T/NGNA #### [facility] [address] [place] [address] Dr. Donis Mancini NEUT # 16.2 103/ul Critically high 1.4-6.5 [facility] Comment on above: Performed By: #### C T/NGNA #### [facility] [address] [place] [address] Dr. Donis Mancini Neutrophils/100 WBC (Bld) 84.4 % Critically high 43.0-75.0 [facility] Comment on above: Performed By: #### C T/NGNA #### [facility] [address] [address] [address] Donis Mancini Platelet mean volume (Bld) [Entitic vol] 11.8 fL Normal 9.5-13.5 [facility] Comment on above: Performed By: #### C T/NGNA #### [facility] [address] [address] [address] Donis Mancini PLT 156 103/ul Normal 150-450 [facility] Comment on above: Performed By: #### C T/NGNA #### [facility] [address] [address] [address] Donis Mancini RBC 3.85 106/ul Critically low 4.20-5.40 [facility] Comment on above: Performed By: #### C T/NGNA #### [facility] [address] [address] [address] Donis Mancini WBC 19.2 103/ul Critically high 4.0-11.0 [facility] Comment on above: Performed By: #### C T/NGNA #### [facility] [address] [place] [address] Dr. Donis Mancini [facility] SARS-CoV-2 (COVID-19) RNA INESSA+probe Ql (Unsp spec) Not detected Normal NOT DETECTED [facility] Comment on above: Result Comment: When diagnostic [...] for this test is supported by the [employer] Operator of Health and Human Service's [...] be used). Performed By: #### C VDTBH ####[facility] [address] [place] [address]Dr. Donis Mancini DRUG SCREEN RAPID (URINE)on 08-10-2022 AMP Negative Normal NEGATIVE [facility] Comment on above: Performed By: #### D RUGRPD ####[facility] [address] [place], [place] [address]Dr. Donis Mancini BAR Negative Normal NEGATIVE [facility] Comment on above: Performed By: #### D RUGRPD ####[facility] [address] [place], [place] [address]Dr. Laceyjavi Mancini BUP Negative Normal NEGATIVE [facility] Comment on above: Performed By: #### D RUGRPD ####[facility] [address] [place], [place] [address]Dr. Laceyajvi Mancini BZO Negative Normal NEGATIVE [facility] Comment on above: Performed By: #### D RUGRPD ####[facility] [address] [place], [place] [address]Dr. Donis Mancini ALEXA Negative Normal NEGATIVE [facility] Comment on above: Performed By: #### D RUGRPD ####[facility] [address] [place], [place] [address]Dr. Laceyjavi [facility] CUT-OFFS SEE BELOW Normal [facility] Comment on above: Result Comment: AMP (Amphetamine): 500ng/mL, BAR (Barbituates): 200 ng/mL, BZO (Benzodiazepines): 150 ng/mL, BUP (Buprenorphine): 10 ng/mL, ALEXA (Cocaine): 150 ng/mL, mAMP (Methamphetamine): 500 ng/mL, MTD (Methadone): 200 ng/mL, OPI (Opiates): 100 ng/mL, OXY (Oxycodone): 100 ng/mL, PCP (Phencyclidine): 25 ng/mL, PPX (Propoxyphene): 300 ng/mL, THC (Cannabinoids): 50 ng/mL, TCA (Trycyclic Antidepressants): 300 ng/mL Performed By: #### D RUGRPD ####[facility] [address] [place] [id number]. Donis Mancini DRUG CUT HEADER DRUG CLASS TEST SYSTEM CUT-OFF CONCENTRATIONS ARE FOLLOWS: Normal [facility] Comment on above: Performed By: #### D RUGRPD ####[facility] [address] [place] [phone]. Donis Mancini mAMP Negative Normal NEGATIVE [facility] Comment on above: Performed By: #### D RUGRPD ####[facility] [address] [place] [address]Dr. Donis Mancini MTD Negative Normal NEGATIVE [facility] Comment on above: Performed By: #### D RUGRPD ####[facility] [address] [place], [place] [address]Dr. Donis Mancini OPI Negative Normal NEGATIVE [facility] Comment on above: Performed By: #### D RUGRPD ####[facility] [address] [place], [place] [address]Dr. Yijavi Mancini OXY Negative Normal NEGATIVE [facility] Comment on above: Performed By: #### D RUGRPD ####[facility] [address] [place], [place] [address]Dr. Donis Mancini PCP Negative Normal NEGATIVE [facility] Comment on above: Performed By: #### D RUGRPD ####[facility] [address] [place] [address]Dr. Donis Mancini PPX Negative Normal NEGATIVE [facility] Comment on above: Performed By: #### D RUGRPD ####[facility] [address] [place] [phone]. Donis Mancini TCA Negative Normal NEGATIVE [facility] Comment on above: Performed By: #### D RUGRPD ####[facility] [address] [place] [address]Dr. Donis Mancini THC Negative Normal NEGATIVE [facility] Comment on above: Performed By: #### D RUGRPD ####[facility] [address] [place], [place] [address]Dr. Donis Mancini TYPE AND SCREENon 08-10-2022 TYPE AND SCREEN Negative Normal [facility] Comment on above: Performed By: #### T NS ####[facility] [address] [place], [place] [address]Dp. Donis Mancini US PREG BIOPHY W NON [...] profile score 8.0. Electronically authenticated by: ESTEFANY BENNTET Date: 2022-08-10 07:18 Normal [facility] US PREG GROWTHon 08-10-2022 US PREG GROWTH [...] ESTEFANY BENNETT Date: 2022-08-10 07:16 Normal [facility] CBC AUTO DIFFon 08-09-2022 BASO # 0.0 103/ul Normal 0.0-0.1 [facility] Comment on above: Performed By: #### C BC ####[facility] [address] [place] [phone]. Donis Mancini Basophils/100 WBC (Bld) 0.2 % Normal 0.2-2.0 [facility] Comment on above: Performed By: #### C BC ####[facility] [address] [place] [phone]. Donis Mancini EO # 0.4 103/ul Normal 0.0-0.7 [facility] Comment on above: Performed By: #### C BC ####[facility] [address] [place] [phone]. Donis Mancini Eosinophils/100 WBC (Bld) 2.8 % Normal 0.9-7.0 [facility] Comment on above: Performed By: #### C BC ####[facility] [address] [place], [place] [address]Dr. Donis Mancini Erythrocyte distribution width (RBC) [Ratio] 12.2 % Normal 11.0-15.0 [facility] Comment on above: Performed By: #### C BC ####[facility] [address] [place], [place] [address]Dr. Donis Mancini Hematocrit (Bld) [Volume fraction] 41.4 % Normal 36.0-48.0 [facility] Comment on above: Performed By: #### C BC ####[facility] [address] [place], [place] [address]Dr. Donis Mancini Hemoglobin (Bld) [Mass/Vol] 14.4 g/dL Normal 12.0-16.0 [facility] Comment on above: Performed By: #### C BC ####[facility] [address] [place] [phone]. Donis Mancini IG # 0.06 10e3/ul Critically high 0.00-0.03 [facility] Comment on above: Performed By: #### C BC ####[facility] [address] [place], [place] [address]Dr. Donis Mancini IG % 0.5 % Normal 0.0-0.5 [facility] Comment on above: Performed By: #### C BC ####[facility] [address] [place] [phone]. Donis Mancini LYMPH # 1.5 103/ul Normal 1.2-3.8 [facility] Comment on above: Performed By: #### C BC ####[facility] [address] [place] [phone]. Donis Mancini Lymphocytes/100 WBC (Bld) 11.7 % Critically low 20.5-60.0 [facility] Comment on above: Performed By: #### C BC ####[facility] [address] [place] [address]Dr. Donis Mancini MANUAL DIFF REQ NO Normal [facility] Comment on above: Performed By: #### C BC ####[facility] [address] [place] [address]Dr. Donis Mancini MCH (RBC) [Entitic mass] 31.9 pg Normal 26.7-34.0 [facility] Comment on above: Performed By: #### C BC ####[facility] [address] [place] [phone]. Donis Mancini MCHC (RBC) [Mass/Vol] 34.8 g/dL Normal 29.9-35.2 [facility] Comment on above: Performed By: #### C BC ####[facility] [address] [place] [phone] Mancini MCV (RBC) [Entitic vol] 91.8 fL Normal 81.0-99.0 [facility] Comment on above: Performed By: #### C BC ####[facility] [address] [place] [phone] Mancini MONO # 1.0 103/ul Critically high 0.3-0.8 [facility] Comment on above: Performed By: #### C BC ####[facility] [address] [place] [phone] Mancini Monocytes/100 WBC (Bld) 7.5 % Normal 1.7-12.0 [facility] Comment on above: Performed By: #### C BC ####[facility] [address] [place] [phone]. Donis Mancini NEUT # 10.0 103/ul Critically high 1.4-6.5 [facility] Comment on above: Performed By: #### C BC ####[facility] [address] [place] [phone] Mancini Neutrophils/100 WBC (Bld) 77.3 % Critically high 43.0-75.0 [facility] Comment on above: Performed By: #### C BC ####[facility] [address] [place] [phone]. Donis Mancini Platelet mean volume (Bld) [Entitic vol] 11.6 fL Normal 9.5-13.5 [facility] Comment on above: Performed By: #### C BC ####[facility] [address] [place] [phone]. Donis Mancini PLT 184 103/ul Normal 150-450 [facility] Comment on above: Performed By: #### C BC ####[facility] [address] [place] [phone]. Donis Mancini RBC 4.51 106/ul Normal 4.20-5.40 [facility] Comment on above: Performed By: #### C BC ####[facility] [address] [place] [phone] Mancini WBC 12.9 103/ul Critically high 4.0-11.0 [facility] Comment on above: Performed By: #### C BC ####[facility] [address] [place] [phone] Mancini LDHon 08-09-2022 LDH 167 U/L Normal 81-234 [facility] Comment on above: Performed By: #### C T/NGNA #### [facility] [address] [place], [place] [address] Dr. Donis Mancini PROF 14(COMP METB)on 022 Albumin [Mass/Vol] 2.7 g/dL Critically low 3.4-5.0 [facility] Comment on above: Performed By: #### C T/NGNA #### [facility] [address] [place] [address] Dr. Donis Mancini Albumin/Globulin [Mass ratio] 0.6 {ratio} Normal [facility] Comment on above: Performed By: #### C T/NGNA #### [facility] [address] [address] [address] Donis Mancini ALP [Catalytic activity/Vol] 176 U/L Critically high 46-116 [facility] Comment on above: Performed By: #### C T/NGNA #### [facility] [address] [place] [address] Dr. Donis Mancini ALT [Catalytic activity/Vol] 20 U/L Normal 14-59 [facility] Comment on above: Performed By: #### C T/NGNA #### [facility] [address] [place] [address] Dr. Donis Mancini Anion gap [Moles/Vol] 12.9 mmol/L Normal [facility] Comment on above: Performed By: #### C T/NGNA #### [facility] [address] [place] [address] Dr. Donis Mancini AST [Catalytic activity/Vol] 20 U/L Normal 15-37 [facility] Comment on above: Performed By: #### C T/NGNA #### [facility] [address] [place] [address] Dr. Donis Mancini Bilirubin [Mass/Vol] 0.1 mg/dL Critically low 0.2-1.0 [facility] Comment on above: Performed By: #### C T/NGNA #### [facility] [address] [place] [address] Dr. Donis Mancini Calcium [Mass/Vol] 9.1 mg/dL Normal 8.5-10.1 [facility] Comment on above: Performed By: #### C T/NGNA #### [facility] [address] [place] [address] Dr. Donis Mancini Chloride [Moles/Vol] 104 mmol/L Normal 98-107 [facility] Comment on above: Performed By: #### C T/NGNA #### [facility] [address] [address] [address] Donis Mancini CO2 [Moles/Vol] 22.9 mmol/L Normal 21.0-32.0 [facility] Comment on above: Performed By: #### C T/NGNA #### [facility] [address] [address] [address] Donis Mancini Creatinine [Mass/Vol] 0.43 mg/dL Critically low 0.55-1.02 [facility] Comment on above: Performed By: #### C T/NGNA #### [facility] [address] [address] [address] Donis Mancini EGFR-AF BERMUDIAN >60 Normal >=60 [facility] Comment on above: Performed By: #### C T/NGNA #### [facility] [address] [address] [address] Donis Mancini EGFR-NON AF BERMUDIAN >60 Normal >=60 [facility] Comment on above: Performed By: #### C T/NGNA #### [facility] [address] [address] [address] Donis Mancini Globulin (S) [Mass/Vol] 4.2 g/dL Normal [facility] Comment on above: Performed By: #### C T/NGNA #### [facility] [address] [address] [address] Donis Mancini Glucose [Mass/Vol] 95 mg/dL Normal 74-106 [facility] Comment on above: Performed By: #### C T/NGNA #### [facility] [address] [address] [address] Donis Mancini Potassium [Moles/Vol] 3.8 mmol/L Normal 3.5-5.1 [facility] Comment on above: Performed By: #### C T/NGNA #### [facility] [address] [address] [address] Donis Mancini Protein [Mass/Vol] 6.9 g/dL Normal 6.4-8.2 [facility] Comment on above: Performed By: #### C T/NGNA #### [facility] [address] [place] [address] Dr. Donis Mancini Sodium [Moles/Vol] 136 mmol/L Normal 136-145 [facility] Comment on above: Performed By: #### C T/NGNA #### [facility] [address] [place] [address] Dr. Donis Mancini Urea nitrogen [Mass/Vol] 10.0 mg/dL Normal 7.0-18.0 [facility] Comment on above: Performed By: #### C T/NGNA #### [facility] [address] [place] [address] Dr. Donis Mancini Urea nitrogen/Creatinine [Mass ratio] 23.3 mg/mg Normal [facility] Comment on above: Performed By: #### C T/NGNA #### [facility] [address] [place] [address] Dr. Donis Mancini URIC ACID SERUMon 08-09-2022 Urate [Mass/Vol] 3.6 mg/dL Normal 2.6-6.0 [facility] Comment on above: Performed By: #### C T/NGNA #### [facility] [address] [place] [address] Dr. Donis Mancini CBC AUTO DIFFon 08-07-2022 BASO # 0.0 103/ul Normal 0.0-0.1 [facility] Comment on above: Performed By: #### U AMIC #### [facility] [address] [place] [address] Dr. Donis Mancini Basophils/100 WBC (Bld) 0.2 % Normal 0.2-2.0 [facility] Comment on above: Performed By: #### U AMIC #### [facility] [address] [place] [address] Dr. Donis Macnini EO # 0.2 103/ul Normal 0.0-0.7 [facility] Comment on above: Performed By: #### U AMIC #### [facility] [address] [address] [address] Donis Mancini Eosinophils/100 WBC (Bld) 1.8 % Normal 0.9-7.0 [facility] Comment on above: Performed By: #### U AMIC #### [facility] [address] [address] [address] Donis Mancini Erythrocyte distribution width (RBC) [Ratio] 12.3 % Normal 11.0-15.0 [facility] Comment on above: Performed By: #### U AMIC #### [facility] [address] [address] [address] Donis Mancini Hematocrit (Bld) [Volume fraction] 45.7 % Normal 36.0-48.0 [facility] Comment on above: Performed By: #### U AMIC #### [facility] [address] [place] [address] Dr. Donis Mancini Hemoglobin (Bld) [Mass/Vol] 16.0 g/dL Normal 12.0-16.0 [facility] Comment on above: Performed By: #### U AMIC #### [facility] [address] [address] [address] Donis Mancini IG # 0.07 10e3/ul Critically high 0.00-0.03 [facility] Comment on above: Performed By: #### U AMIC #### [facility] [address] [place] [address] Dr. Donis Mancini IG % 0.5 % Normal 0.0-0.5 [facility] Comment on above: Performed By: #### U AMIC #### [facility] [address] [address] [address] Donis Mancini LYMPH # 1.5 103/ul Normal 1.2-3.8 [facility] Comment on above: Performed By: #### U AMIC #### [facility] [address] [address] [address] Donis Mancini Lymphocytes/100 WBC (Bld) 11.2 % Critically low 20.5-60.0 [facility] Comment on above: Performed By: #### U AMIC #### [facility] [address] [place] [address] Dr. Donis Mancini MANUAL DIFF REQ NO Normal [facility] Comment on above: Performed By: #### U AMIC #### [facility] [address] [place] [address] Dr. Donis Mancini MCH (RBC) [Entitic mass] 32.0 pg Normal 26.7-34.0 [facility] Comment on above: Performed By: #### U AMIC #### [facility] [address] [place] [address] Dr. Donis Mancini MCHC (RBC) [Mass/Vol] 35.0 g/dL Normal 29.9-35.2 [facility] Comment on above: Performed By: #### U AMIC #### [facility] [address] [place] [address] Dr. Donis Mancini MCV (RBC) [Entitic vol] 91.4 fL Normal 81.0-99.0 [facility] Comment on above: Performed By: #### U AMIC #### [facility] [address] [place] [address] Dr. Donis Mancini MONO # 0.9 103/ul Critically high 0.3-0.8 [facility] Comment on above: Performed By: #### U AMIC #### [facility] [address] [place] [address] Dr. Donis Mancini Monocytes/100 WBC (Bld) 6.3 % Normal 1.7-12.0 [facility] Comment on above: Performed By: #### U AMIC #### [facility] [address] [place] [address] Dr. Donis Mancini NEUT # 10.9 103/ul Critically high 1.4-6.5 [facility] Comment on above: Performed By: #### U AMIC #### [facility] [address] [place] [address] Dr. Donis Mancini Neutrophils/100 WBC (Bld) 80.0 % Critically high 43.0-75.0 [facility] Comment on above: Performed By: #### U AMIC #### [facility] [address] [address] [address] Donis Mancini Platelet mean volume (Bld) [Entitic vol] 11.5 fL Normal 9.5-13.5 [facility] Comment on above: Performed By: #### U AMIC #### [facility] [address] [address] [address] Donis Mancini PLT 182 103/ul Normal 150-450 [facility] Comment on above: Performed By: #### U AMIC #### [facility] [address] [address] [address] Donis Mancini RBC 5.00 106/ul Normal 4.20-5.40 [facility] Comment on above: Performed By: #### U AMIC #### [facility] [address] [address] [address] Donis Mancini WBC 13.6 103/ul Critically high 4.0-11.0 [facility] Comment on above: Performed By: #### U AMIC #### [facility] [address] [address] [address] Donis Mancini LDHon 08-07-2022 LDH 171 U/L Normal 81-234 [facility] Comment on above: Performed By: #### C MP, URIC, LDH ####[facility] [address] [phone]. Donis Mancini PROF 14(COMP METB)on 022 Albumin [Mass/Vol] 2.9 g/dL Critically low 3.4-5.0 [facility] Comment on above: Performed By: #### C MP, URIC, LDH ####[facility] [address] [phone]. Donis Mancini Albumin/Globulin [Mass ratio] 0.6 {ratio} Normal [facility] Comment on above: Performed By: #### C MP, URIC, LDH ####[facility] [address] [phone]. Donis Mancini ALP [Catalytic activity/Vol] 192 U/L Critically high 46-116 [facility] Comment on above: Performed By: #### C MP, URIC, LDH ####[facility] [address] [address]Dr. Donis Mancini ALT [Catalytic activity/Vol] 23 U/L Normal 14-59 [facility] Comment on above: Performed By: #### C MP, URIC, LDH ####[facility] [address] [address]Dr. Donis Mancini Anion gap [Moles/Vol] 14.4 mmol/L Normal [facility] Comment on above: Performed By: #### C MP, URIC, LDH ####[facility] [address] [address]Dr. Donis Mancini AST [Catalytic activity/Vol] 23 U/L Normal 15-37 [facility] Comment on above: Performed By: #### C MP, URIC, LDH ####[facility] [address] [place], [place] [address]Dr. Donis Mancini Bilirubin [Mass/Vol] 0.2 mg/dL Normal 0.2-1.0 [facility] Comment on above: Performed By: #### C MP, URIC, LDH ####[facility] [address] [place], [place] [address]Dr. Donis Mancini Calcium [Mass/Vol] 9.4 mg/dL Normal 8.5-10.1 [facility] Comment on above: Performed By: #### C MP, URIC, LDH ####[facility] [address] [address]Dr. Donis Mancini Chloride [Moles/Vol] 104 mmol/L Normal 98-107 [facility] Comment on above: Performed By: #### C MP, URIC, LDH ####[facility] [address] [place], [place] [address]Dr. Donis Mancini CO2 [Moles/Vol] 21.7 mmol/L Normal 21.0-32.0 [facility] Comment on above: Performed By: #### C MP, URIC, LDH ####[facility] [address] [place], [place] [address]Dr. Donis Mancini Creatinine [Mass/Vol] 0.46 mg/dL Critically low 0.55-1.02 [facility] Comment on above: Performed By: #### C MP, URIC, LDH ####[facility] [address] [address]Dr. Donis Mancini EGFR-AF BERMUDIAN >60 Normal >=60 [facility] Comment on above: Performed By: #### C MP, URIC, LDH ####[facility] [address] [address]Dr. Donis Mancini EGFR-NON AF BERMUDIAN >60 Normal >=60 [facility] Comment on above: Performed By: #### C MP, URIC, LDH ####[facility] [address] [address]Dr. Donis Mancini Globulin (S) [Mass/Vol] 4.6 g/dL Normal [facility] Comment on above: Performed By: #### C MP, URIC, LDH ####[facility] [address] [address]Dr. Donis Mancini Glucose [Mass/Vol] 89 mg/dL Normal 74-106 [facility] Comment on above: Performed By: #### C MP, URIC, LDH ####[facility] [address] [address]Dr. Donis Mancini Potassium [Moles/Vol] 4.1 mmol/L Normal 3.5-5.1 [facility] Comment on above: Performed By: #### C MP, URIC, LDH ####[facility] [address] [address]Dr. Donis Mancini Protein [Mass/Vol] 7.5 g/dL Normal 6.4-8.2 [facility] Comment on above: Performed By: #### C MP, URIC, LDH ####[facility] [address] [address]Dr. Donis Mancini Sodium [Moles/Vol] 136 mmol/L Normal 136-145 [facility] Comment on above: Performed By: #### C MP, URIC, LDH ####[facility] [address] [phone]. Donis Mancini Urea nitrogen [Mass/Vol] 8.0 mg/dL Normal 7.0-18.0 [facility] Comment on above: Performed By: #### C MP, URIC, LDH ####[facility] [address] [place], [place] [address]WiDr. Donis Mancini Urea nitrogen/Creatinine [Mass ratio] 17.4 mg/mg Normal [facility] Comment on above: Performed By: #### C MP, URIC, LDH ####[facility] [address] [place], [place] [address]BvDr. Donis Mancini PROTIMEon 08-07-2022 INR Coag (PPP) [Relative time] {INR} Normal [facility] Comment on above: Performed By: #### U AMIC #### [facility] [address] [address] [address] Donis Mancini INR GUIDELINES SEE BELOW Normal [facility] Comment on above: Result Comment: NICCI RED INR: 2.0 - 3.0 CONDITIONS NOT LISTED BELOW 2.5 - 3.5 FOR PROSTHETIC HEART VALVE REPLACEMENT 2.5 - 3.5 RECURRENT THROMBOSIS Performed By: #### U AMIC #### [facility] [address] [address] [address] Donis Mancini PT Coag (PPP) [Time] 9.8 s Normal 9.0-11.6 [facility] Comment on above: Performed By: #### U AMIC #### [facility] [address] [address] [address] Donis Mancini PTTon 08-07-2022 aPTT Coag (Bld) [Time] 28.5 s Normal 22.3-36.[address] [facility] Comment on above: Performed By: #### U AMIC #### [facility] [address] [address] [address] Donis Mancini UA (CLEAN/CATCH) EL TEACHER/MICRO I F IND.on 08-07-2022 Bilirubin Ql (U) Negative Normal NEGATIVE [facility] Comment on above: Performed By: #### U AMIC #### [facility] [address] [address] [address] Donis Mancini Clarity (U) CLEAR Normal CLEAR [facility] Comment on above: Performed By: #### U AMIC #### [facility] [address] [address] [address] Donis Mancini Color (U) LT. YELLOW Normal YELLOW [facility] Comment on above: Performed By: #### U AMIC #### [facility] [address] [address] [address] Donis Mancini Glucose Ql (U) Negative Normal NEGATIVE [facility] Comment on above: Performed By: #### U AMIC #### [facility] [address] [place] [address] Dr. Donis aMncini Hemoglobin Ql (U) Negative Normal NEGATIVE [facility] Comment on above: Performed By: #### U AMIC #### [facility] [address] [place] [address] Dr. Donis Mancini Ketones Ql (U) Negative Normal NEGATIVE [facility] Comment on above: Performed By: #### U AMIC #### [facility] [address] [place] [address] Dr. Donis Mancini LEUKOCYTES Negative Normal NEGATIVE [facility] Comment on above: Performed By: #### U AMIC #### [facility] [address] [place] [address] Dr. Donis Mancini Nitrite Ql (U) Negative Normal NEGATIVE [facility] Comment on above: Performed By: #### U AMIC #### [facility] [address] [place] [address] Dr. Donis Mancini pH (U) 7.0 [pH] Normal 5-9 [facility] Comment on above: Performed By: #### U AMIC #### [facility] [address] [place] [address] Dr. Donis Mancini SPEC GRAVITY <=1.005 Abnormal 1.005-<=1.02 5 [facility] Comment on above: Performed By: #### U AMIC #### [facility] [address] [place] [address] Dr. Donis Mancini UA PROTEIN Negative Normal NEGATIVE/ TRACE [facility] Comment on above: Performed By: #### U AMIC #### [facility] [address] [address] [address] Donis Mancini UR MICRO IND NOT INDICATED Normal [facility] Comment on above: Performed By: #### U AMIC #### [facility] [address] [address] [address] Donis Mancini Urobilinogen Qn (U) 0.2 {Sarah'U}/dL Normal 0.2 - 1. 0 [facility] Comment on above: Performed By: #### U AMIC #### [facility] [address] [address] [address] Donis Mancini URIC ACID SERUMon 08-07-2022 Urate [Mass/Vol] 3.8 mg/dL Normal 2.6-6.0 [facility] Comment on above: Performed By: #### C MP, URIC, LDH ####[facility] [address] [address]Dr. Donis Mancini URINE T PROTEIN CREAT RATIOo n 08-07-2022 UR TOTAL PROTEIN <6.0 Normal <=12.0 [facility] Comment on above: Performed By: #### C T/NGNA #### [facility] [address] [address] [address] Donis Mnacini URINE CREAT 13.45 mg/dL Critically low 20.00-300.00 [facility] Comment on above: Performed By: #### C T/NGNA #### [facility] [address] [address] [address] Donis Mancini US PREG BIOPHY W [...] COCO STERN Date: 2022-08-01 08:31 Normal [facility] CHLAMYDIA/GONOCOCCUS INESSA (SW AB/URINE/PAPon 07-31-2022 Chlamydia trachomatis, INESSA Negative Normal Negative [facility] Comment on above: Performed By: #### C T/NGNA #### [facility] [address] [place] [address] Dr. Donis Mancini Neisseria gonorrhoeae, INESSA Negative Normal Negative [facility] Comment on above: Performed By: #### C T/NGNA #### [facility] [address] [place] [address] Dr. Donis Mancini VAGINITIS/VAGINOSIS DNA PROB Domenic 07-31-2022 Simeon species Negative Normal Negative [facility] Comment on above: Performed By: #### V AGINT ####[facility] [address] [address]Dr. Donis Mancini Gardnerella vaginalis Negative Normal Negative [facility] Comment on above: Performed By: #### V AGINT ####[facility] [address] [place], [place] [address]Dr. Donis Mancini Trichomonas vaginalis Negative Normal Negative [facility] Comment on above: Performed By: #### V AGINT ####[facility] [address] [address]Dr. Donis Mancini GROUP B STREP CULTUREon S. agalactiae Ag Ql (Unsp spec) Culture Observations: NEGATIVE FOR GROUP B STREPTOCOCCUS. Normal [facility] Comment on above: Performed By: #### G BSCX #### [facility] [address] [place] [address] Dr. Donis Mancini US PREG BIOPHY W [...] interval follow-up recommended Electronically authenticated by: COCO SETRN Date: 2022-07-25 09:41 Normal [facility] US PREG GROWTHon 07-11-2022 US PREG GROWTH [...] ESTEFANY BENNETT Date: 2022-07-11 19:28 Normal [facility] Covid-19 PCR (CVDTB)on 06-26 SARS-CoV-2 (COVID-19) RNA INESSA+probe Ql (Unsp spec) Not detected Normal NOT DETECTED [facility] Comment on above: Result Comment: When diagnostic [...] for this test is supported by the [employer] Service's [...] used). Performed By: #### C T/NGNA #### [facility] [address] [place] [address] Dr. Donis Mancini GTT 3 HR PREGon 06-03-2022 Glucose [Mass/Vol] 94 mg/dL Normal 74-106 [facility] Comment on above: Performed By: #### U AMIC #### [facility] [address] [place] [address] Dr. Donis Mancini Glucose [Mass/Vol] 147 mg/dL Normal [facility] Comment on above: Performed By: #### U AMIC #### [facility] [address] [place] [address] Dr. Donis Mancini Glucose [Mass/Vol] 159 mg/dL Normal [facility] Comment on above: Performed By: #### U AMIC #### [facility] [address] [place] [address] Dr. Donis Mancini Glucose [Mass/Vol] 151 mg/dL Normal [facility] Comment on above: Performed By: #### U AMIC #### [facility] [address] [place] [address] Dr. Donis Mancini GLUCOSE - 1HRon 05-21-2022 Glucose [Mass/Vol] 141 mg/dL Critically high 74-106 [facility] Comment on above: Performed By: #### U AMIC #### [facility] [address] [place] [address] Dr. Donis Mancini HEMOGRAM AND PLATELon 2021 Hematocrit (Bld) [Volume fraction] 39.1 % Normal 36.0-48.0 [facility] Comment on above: Performed By: #### U AMIC #### [facility] [address] [place] [address] Dr. Donis Mancini Hemoglobin (Bld) [Mass/Vol] 13.1 g/dL Normal 12.0-16.0 [facility] Comment on above: Performed By: #### U AMIC #### [facility] [address] [place] [address] Dr. Donis Mancini MCH (RBC) [Entitic mass] 32.3 pg Normal 26.7-34.0 [facility] Comment on above: Performed By: #### U AMIC #### [facility] [address] [place] [address] Dr. Donis Mancini MCHC (RBC) [Mass/Vol] 33.5 g/dL Normal 29.9-35.2 [facility] Comment on above: Performed By: #### U AMIC #### [facility] [address] [place] [address] Dr. Donis Mancini MCV (RBC) [Entitic vol] 96.5 fL Normal 81.0-99.0 [facility] Comment on above: Performed By: #### U AMIC #### [facility] [address] [address] [address] Donis Mancini PLT 220 103/ul Normal 150-450 [facility] Comment on above: Performed By: #### U AMIC #### [facility] [address] [place] [address] Dr. Donis Mancini RBC 4.05 106/ul Critically low 4.20-5.40 [facility] Comment on above: Performed By: #### U AMIC #### [facility] [address] [place] [address] Dr. Donis Mancini WBC 12.8 103/ul Critically high 4.0-11.0 [facility] Comment on above: Performed By: #### U AMIC #### [facility] [address] [place] [address] Dr. Donis Mancini US PREG BIOPHYSICAL NO [...] ESTEFANY BENNETT Date: 2022-05-11 06:25 Normal [facility] CULTURE URINEon 05-10-2022 CULTURE URINE Culture Observations: MODERATE GROWTH OF MIXED GENITAL RAMBO. NO POTENTIAL PATHOGENS SEEN. Normal [facility] Comment on above: Performed By: #### U RCX #### [facility] [address] [address] [address] Donis Mancini UA RANDOM W/MICROSCOPICon BACTERIA LARGE Abnormal NONE SEEN [facility] Comment on above: Performed By: #### U AMIC ####[facility] [address] [address]Dr. Donis Mancini Bilirubin Ql (U) Negative Normal NEGATIVE [facility] Comment on above: Performed By: #### U AMIC ####[facility] [address] [address]DrGene Mancini CAST NONE SEEN Normal NONE SEEN [facility] Comment on above: Performed By: #### U AMIC ####[facility] [address] [address]DrGene Mancini Clarity (U) CLEAR Normal CLEAR [facility] Comment on above: Performed By: #### U AMIC ####[facility] [address] [address]DrGene Mancini Color (U) YELLOW Normal YELLOW [facility] Comment on above: Performed By: #### U AMIC ####[facility] [address] [address]DrGene Mancini Crystals LM Nom (Urine sed) NONE SEEN Normal NONE SEEN [facility] Comment on above: Performed By: #### U AMIC ####[facility] [address] [address]DrGene Mancini Epithelial cells LM Ql (Urine sed) MODERATE Abnormal NONE SEEN /RARE [facility] Comment on above: Performed By: #### U AMIC ####[facility] [address] [address]Dr. Donis Mancini Glucose Ql (U) 250 mg/dl Abnormal NEGATIVE [facility] Comment on above: Performed By: #### U AMIC ####[facility] [address] [address]Dr. Donis Mancini Hemoglobin Ql (U) TRACE-INTACT Abnormal NEGATIVE [facility] Comment on above: Performed By: #### U AMIC ####[facility] [address] [address]Dr. Donis Mancini Ketones Ql (U) Negative Normal NEGATIVE [facility] Comment on above: Performed By: #### U AMIC ####[facility] [address] [place], [place] [address]Dr. Donis Mancini LEUKOCYTES LARGE Abnormal NEGATIVE [facility] Comment on above: Performed By: #### U AMIC ####[facility] [address] [place], [place] [address]Dr. Donis Mancini MUCOUS NONE SEEN Normal NONE SEEN [facility] Comment on above: Performed By: #### U AMIC ####[facility] [address] [place], [place] [address]Dr. Donis Mancini Nitrite Ql (U) Negative Normal NEGATIVE [facility] Comment on above: Performed By: #### U AMIC ####[facility] [address] [place], [place] [address]Dr. Donis Mancini pH (U) 6.0 [pH] Normal 5-9 [facility] Comment on above: Performed By: #### U AMIC ####[facility] [address] [place], [place] [address]Dr. Donis Mancini RBC 2-5 Abnormal 0-2 [facility] Comment on above: Performed By: #### U AMIC ####[facility] [address] [place] [address]Dr. Donis Mancini SPEC GRAVITY <=1.005 Abnormal 1.005-<=1.02 5 [facility] Comment on above: Performed By: #### U AMIC ####[facility] [address] [address]Dr. Donis Mancini UA PROTEIN Negative Normal NEGATIVE/ TRACE [facility] Comment on above: Performed By: #### U AMIC ####[facility] [address] [place] [address]Dr. Donis Mancini Urobilinogen Qn (U) 0.2 {Sarah'U}/dL Normal 0.2 - 1. 0 [facility] Comment on above: Performed By: #### U AMIC ####[facility] [address] [place], [place] [address]Dr. Donis Mancini WBC 10-20 Abnormal NONE SEEN [facility] Comment on above: Performed By: #### U AMIC ####[facility] [address] [place], [place] [address]Dr. Donis Mancini CULTURE URINEon 04-27-2022 CULTURE URINE Culture Observations: LIGHT GROWTH OF MIXED GENITAL RAMBO. NO POTENTIAL PATHOGENS SEEN. Normal [facility] Comment on above: Performed By: #### U RCX ####[facility] [address] [place], [place] [address]Dr. Donis Mancini UA (CLEAN/CATCH) EL TEACHER/MICRO I F IND.on 04-27-2022 Bilirubin Ql (U) Negative Normal NEGATIVE [facility] Comment on above: Performed By: #### U ACSWENDY UMICRO ####[facility] [address] [place], [place] [address]Dr. Donis Mancini Clarity (U) CLEAR Normal CLEAR [facility] Comment on above: Performed By: #### U ACSWENDY UMICRO ####[facility] [address] [place] [address]Dr. Donis Mancini Color (U) LT. YELLOW Normal YELLOW [facility] Comment on above: Performed By: #### U ACSIND UMICRO ####[facility] [address] [place] [address]Dr. Donis Mancini Glucose Ql (U) Negative Normal NEGATIVE [facility] Comment on above: Performed By: #### U ACSWENDY, UMICRO ####[facility] [address] [place] [address]Dr. Donis Mancini Hemoglobin Ql (U) Negative Normal NEGATIVE [facility] Comment on above: Performed By: #### U ACSWENDY, UMICRO ####[facility] [address] [place] [address]Dr. Donis Mancini Ketones Ql (U) Negative Normal NEGATIVE [facility] Comment on above: Performed By: #### U ACSWENDY, UMICRO ####[facility] [address] [place] [address]Dr. Donis Mancini LEUKOCYTES SMALL Abnormal NEGATIVE [facility] Comment on above: Performed By: #### U ACSWENDY, UMICRO ####[facility] [address] [place] [address] [address]Dr. Donis Mancini Nitrite Ql (U) Negative Normal NEGATIVE [facility] Comment on above: Performed By: #### U ACSWENDY UMICRO ####[facility] [address] [place] [address]Dr. Donis Mancini pH (U) 7.0 [pH] Normal 5-9 [facility] Comment on above: Performed By: #### U ACSWENDY, UMICRO ####[facility] [address] [place] [address] [address]Dr. Donis Mancini SPEC GRAVITY 1.015 Normal 1.005-<=1.02 5 [facility] Comment on above: Performed By: #### U ACSWENDY UMICRO ####[facility] [address] [place] [address] [address]Dr. Donis Mancini UA PROTEIN Negative Normal NEGATIVE/ TRACE [facility] Comment on above: Performed By: #### U ACSWENDY UMICRO ####[facility] [address] [place] [address] [address]Dr. Donis Mancini UR MICRO IND INDICATED Normal [facility] Comment on above: Performed By: #### U ACSWENDY UMICRO ####[facility] [address] [place] [address] [address]Dr. Donis Mancini Urobilinogen Qn (U) 0.2 {Sarah'U}/dL Normal 0.2 - 1. 0 [facility] Comment on above: Performed By: #### U NELSON UMICRO ####[facility] [address] [place] [address] [address]Dr. Donis Mancini URINE MICROSCOPIC ONLYon BACTERIA MODERATE Abnormal NONE SEEN [facility] Comment on above: Performed By: #### U NELSON UMICRO ####[facility] [address] [place] [address] [address]Dr. Donis Mancini Bacteria identified Cx Nom (U) INDICATED Normal [facility] Comment on above: Performed By: #### U NELSON UMICRO ####[facility] [address] [place], [place] [address]Dr. Donis Mancini CAST NONE SEEN Normal NONE SEEN [facility] Comment on above: Performed By: #### U NELSON UMICRO ####[facility] [address] [place], [place] [address]Dr. Donis Mancini Crystals LM Nom (Urine sed) NONE SEEN Normal NONE SEEN [facility] Comment on above: Performed By: #### U NELSON UMICRO ####[facility] [address] [place], [place] [address]Dr. Donis Mancini Epithelial cells LM Ql (Urine sed) MODERATE Abnormal NONE SEEN /RARE [facility] Comment on above: Performed By: #### U NELSON UMICRO ####[facility] [address] [place], [place] [address]Dr. Donis Mancini MUCOUS NONE SEEN Normal NONE SEEN [facility] Comment on above: Performed By: #### U NELSON UMICRO ####[facility] [address] [place], [place] [address]Dr. Donis Mancini RBC NONE SEEN Abnormal 0-2 [facility] Comment on above: Performed By: #### U NELSON UMICRO ####[facility] [address] [place], [place] [address]Dr. Donis Mancini WBC 2-5 Abnormal NONE SEEN [facility] Comment on above: Performed By: #### U DONNA DAMON ####[facility] [address] [place], [place] [address]QfDr. Donis Mancini US KIDNEYSon 04-27-2022 US KIDNEYS [...] ANDREAS AN Date: 2022-04-27 17:48 Normal [facility] CULTURE URINEon 04-16-2022 CULTURE URINE Isolate 1 [...] Trimethoprim/Sulfame thoxazole <=20 S F Normal [facility] Comment on above: Performed By: #### U RCX #### [facility] [address] [place], [place] [address] Dr. Donis Mancini US PREG ANATOMY SINGLEon [...] Age by EDC: 21 weeks 3 days YLDIA by EDC: 08/20/2022 Age by current US: 20 weeks 6 days LYDIA by current US: 08/24/2022 IMPRESSION: 1. Single live intrauterine with growth detailed above. Electronically authenticated by: ESTEFANY BENNETT Date: 2022-04-12 22:22 Normal [facility] UA RANDOM W/MICROSCOPICon BACTERIA SMALL Abnormal NONE SEEN [facility] Comment on above: Performed By: #### U AMIC #### [facility] [address] [address] [address] Donis Mancini Bilirubin Ql (U) Negative Normal NEGATIVE [facility] Comment on above: Performed By: #### U AMIC #### [facility] [address] [place], [place] [address] Dr. Donis Mancini CAST NONE SEEN Normal NONE SEEN [facility] Comment on above: Performed By: #### U AMIC #### [facility] [address] [address] [address] Donis Mancini Clarity (U) CLEAR Normal CLEAR [facility] Comment on above: Performed By: #### U AMIC #### [facility] [address] [place] [address] Dr. Donis Mancini Color (U) LT. YELLOW Normal YELLOW [facility] Comment on above: Performed By: #### U AMIC #### [facility] [address] [address] [address] Donis Mancini Crystals LM Nom (Urine sed) NONE SEEN Normal NONE SEEN [facility] Comment on above: Performed By: #### U AMIC #### [facility] [address] [place] [address] Dr. Donis Mancini Epithelial cells LM Ql (Urine sed) FEW Abnormal NONE SEEN /RARE [facility] Comment on above: Performed By: #### U AMIC #### [facility] [address] [place] [address] Dr. Donis Mancini Glucose Ql (U) Negative Normal NEGATIVE [facility] Comment on above: Performed By: #### U AMIC #### [facility] [address] [place] [address] Dr. Donis Mancini Hemoglobin Ql (U) Negative Normal NEGATIVE [facility] Comment on above: Performed By: #### U AMIC #### [facility] [address] [place] [address] Dr. Donis Mancini Ketones Ql (U) Negative Normal NEGATIVE [facility] Comment on above: Performed By: #### U AMIC #### [facility] [address] [place] [address] Dr. Donis Mancini LEUKOCYTES LARGE Abnormal NEGATIVE [facility] Comment on above: Performed By: #### U AMIC #### [facility] [address] [place] [address] Dr. Donis Mancini MUCOUS NONE SEEN Normal NONE SEEN [facility] Comment on above: Performed By: #### U AMIC #### [facility] [address] [place] [address] Dr. Donis Mancini Nitrite Ql (U) Negative Normal NEGATIVE [facility] Comment on above: Performed By: #### U AMIC #### [facility] [address] [place] [address] Dr. Donis Mancini pH (U) 5.5 [pH] Normal 5-9 [facility] Comment on above: Performed By: #### U AMIC #### [facility] [address] [place] [address] Dr. Donis Mancini RBC 0-2 Normal 0-2 [facility] Comment on above: Performed By: #### U AMIC #### [facility] [address] [place] [address] Dr. Donis Mancini SPEC GRAVITY <=1.005 Abnormal 1.005-<=1.02 5 [facility] Comment on above: Performed By: #### U AMIC #### [facility] [address] [place] [address] Dr. Donis Mancini UA PROTEIN Negative Normal NEGATIVE/ TRACE [facility] Comment on above: Performed By: #### U AMIC #### [facility] [address] [place] [address] Dr. Donis Mancini Urobilinogen Qn (U) 0.2 {Sarah'U}/dL Normal 0.2 - 1. 0 [facility] Comment on above: Performed By: #### U AMIC #### [facility] [address] [place] [address] Dr. Donis Mancini WBC 5-10 Abnormal NONE SEEN [facility] Comment on above: Performed By: #### U AMIC #### [facility] [address] [place] [address] Dr. Donis Mancini HEP B SURFACE ANTIGEN SCREEN on 01-23-2022 HBsAg Screen Negative Normal Negative [facility] Comment on above: Performed By: #### U AMIC #### [facility] [address] [place] [address] Dr. Donis Mancini HEPATITIS C VIRUS AB W/ REFL EX QUANTon 01-23-2022 HCV AB 0.1 s/co ratio Normal 0.0-0.9 [facility] Comment on above: Performed By: #### H CVPCRR ####[facility] [address] [place] [id number]. Donis Mancini Interpretation: Comment Normal [facility] Comment on above: Result Comment: Nega tive Not infected with HCV, unless recent infection is suspected or other evidence exists to indicate HCV infection. Performed By: #### H CVPCRR ####[facility] [address] [place] [id number]. Donis Mancini HIV 1 AND 2 WITH REFLEXon HIV Screen 4th Generation wRfx Non-Reactive Normal Non Reactive [facility] Comment on above: Result Comment: HIV Negative HIV-1/HIV-2 antibodies and HIV-1 p24 antigen were NOT detected. There is no laboratory evidence of HIV infection. Performed By: #### H IV12 ####[facility] [address] [place] [address] [address]Dr. Donis Mancini RPR QUANTon 01-23-2022 Rapid Plasma Reagin, Quant Non-Reactive Normal NonRea<1:1 [facility] Comment on above: Result Comment: Plea se Note: This test does not meet current guidelines for screening and diagnosis of syphilis. This test is intended for following treatment response in patients being treated for syphilis infection. To screen for syphilis infection, a reflex cascade that includes both RPR and a treponema-specific assay should be utilized, such as Treponema pallidum (Syphilis) Screening [place] (428948) or Rapid Plasma Reagin (RPR) Test With Reflex to Quantitative RPR and Confirmatory Treponema pallidum Antibodies (960121). Performed By: #### R PRQ ####[facility] [address] [place] [id number]. Donis Mancini RUBELLA AB IGGon 01-23-2022 Rubella Antibodies, IgG 1.60 index Normal Immune >0.99 [facility] Comment on above: Result Comment: Non- immune <0.90 Equivocal 0.90 - 0.99 Immune >0.99 Performed By: #### U AMIC #### [facility] [address] [address] [address] Donis Mancini CBC AUTO DIFFon 01-22-2022 BASO # 0.1 103/ul Normal 0.0-0.1 [facility] Comment on above: Performed By: #### U AMIC #### [facility] [address] [address] [address] Donis Mancini Basophils/100 WBC (Bld) 0.5 % Normal 0.2-2.0 [facility] Comment on above: Performed By: #### U AMIC #### [facility] [address] [address] [address] Donis Mancini EO # 0.6 103/ul Normal 0.0-0.7 [facility] Comment on above: Performed By: #### U AMIC #### [facility] [address] [place] [address] Dr. Donis Mancini Eosinophils/100 WBC (Bld) 5.1 % Normal 0.9-7.0 [facility] Comment on above: Performed By: #### U AMIC #### [facility] [address] [place] [address] Dr. Donis Mancini Erythrocyte distribution width (RBC) [Ratio] 12.0 % Normal 11.0-15.0 [facility] Comment on above: Performed By: #### U AMIC #### [facility] [address] [place] [address] Dr. Donis Mancini Hematocrit (Bld) [Volume fraction] 45.8 % Normal 36.0-48.0 [facility] Comment on above: Performed By: #### U AMIC #### [facility] [address] [place] [address] Dr. Donis Mancini Hemoglobin (Bld) [Mass/Vol] 15.3 g/dL Normal 12.0-16.0 [facility] Comment on above: Performed By: #### U AMIC #### [facility] [address] [place] [address] Dr. Donis Mancini IG # 0.03 10e3/ul Normal 0.00-0.03 [facility] Comment on above: Performed By: #### U AMIC #### [facility] [address] [address] [address] Donis Mancini IG % 0.3 % Normal 0.0-0.5 [facility] Comment on above: Performed By: #### U AMIC #### [facility] [address] [place] [address] Dr. Donis Mancini LYMPH # 1.7 103/ul Normal 1.2-3.8 [facility] Comment on above: Performed By: #### U AMIC #### [facility] [address] [place] [address] Dr. Donis Mancini Lymphocytes/100 WBC (Bld) 15.9 % Critically low 20.5-60.0 [facility] Comment on above: Performed By: #### U AMIC #### [facility] [address] [place] [address] Dr. Donis Mancini MANUAL DIFF REQ NO Normal [facility] Comment on above: Performed By: #### U AMIC #### [facility] [address] [place] [address] Dr. Donis Mancini MCH (RBC) [Entitic mass] 31.5 pg Normal 26.7-34.0 [facility] Comment on above: Performed By: #### U AMIC #### [facility] [address] [place] [address] Dr. Donis Mancini MCHC (RBC) [Mass/Vol] 33.4 g/dL Normal 29.9-35.2 [facility] Comment on above: Performed By: #### U AMIC #### [facility] [address] [place] [address] Dr. Donis Mancini MCV (RBC) [Entitic vol] 94.2 fL Normal 81.0-99.0 [facility] Comment on above: Performed By: #### U AMIC #### [facility] [address] [place] [address] Dr. Donis Mancini MONO # 0.6 103/ul Normal 0.3-0.8 [facility] Comment on above: Performed By: #### U AMIC #### [facility] [address] [place] [address] Dr. Donis Mancini Monocytes/100 WBC (Bld) 5.8 % Normal 1.7-12.0 [facility] Comment on above: Performed By: #### U AMIC #### [facility] [address] [address] [address] Donis Mancini NEUT # 7.8 103/ul Critically high 1.4-6.5 [facility] Comment on above: Performed By: #### U AMIC #### [facility] [address] [address] [address] Donis Mancini Neutrophils/100 WBC (Bld) 72.4 % Normal 43.0-75.0 [facility] Comment on above: Performed By: #### U AMIC #### [facility] [address] [place] [address] Dr. Donis Mancini Platelet mean volume (Bld) [Entitic vol] 9.9 fL Normal 9.5-13.5 [facility] Comment on above: Performed By: #### U AMIC #### [facility] [address] [place] [address] Dr. Donis Mancini PLT 281 103/ul Normal 150-450 [facility] Comment on above: Performed By: #### U AMIC #### [facility] [address] [place] [address] Dr. Donis Mancini RBC 4.86 106/ul Normal 4.20-5.40 [facility] Comment on above: Performed By: #### U AMIC #### [facility] [address] [place] [address] Dr. Donis Mancini WBC 10.8 103/ul Normal 4.0-11.0 [facility] Comment on above: Performed By: #### U AMIC #### [facility] [address] [place] [address] Dr. Donis Mancini CULTURE URINEon 01-22-2022 CULTURE URINE Culture Observations: LIGHT GROWTH OF MIXED GENITAL RAMBO. NO POTENTIAL PATHOGENS SEEN. Normal [facility] Comment on above: Performed By: #### U RCX #### [facility] [address] [place] [address] Dr. Donis Mancini GLYCOHEMOGLOBIN A1Con 2021 ADA RECOMMENDATION SEE BELOW Normal [facility] Comment on above: Result Comment: ADA RECOMMENDED LIMIT 4.0 - 6.0 ADA THERAPEUTIC TARGET < 7.0 ACTION SUGGESTED > 7.0 Performed By: #### A 1C ####[facility] [address] [place], [place] [address]Mw. Donis Mancini Glucose [Mass/Vol] 100 mg/dL Normal [facility] Comment on above: Performed By: #### A 1C ####[facility] [address] [place] [id number]. Donis Mancini HbA1c (Bld) [Mass fraction] 5.1 % Normal 4.5-6.2 [facility] Comment on above: Performed By: #### A 1C ####[facility] [address] [place] [id number]. Donis Mancini SEAN BOX TEST PT SEND OUTo n 01-22-2022 SENT TO REF LAB 01/22/2022 Normal [facility] Comment on above: Performed By: #### N BOX ####[facility] [address] [place] [address]Dr. Donis Mancini TYPE AND SCREENon 01-22-2022 TYPE AND SCREEN Negative Normal [facility] Comment on above: Performed By: #### T NS #### [facility] [address] [id number] Donis Mancini US PREG TVon 01-17-2022 [...] by: COCO STERN Date: 2022-01-17 09:34 Normal [facility] Provider Letteron 04-06-2021 Provider Letter April 06, 2021 Dear Vimal, We have been trying to reach you with no success. It is important that you return our call regarding your appointment upon receiving this letter. Also, at the time of your call, please provide us with your current information. Thank you for your prompt attention to this matter. Sincerely, [place] [address] [place] [address] Normal [facility] Ambulatory Clinical Summaryo n 03-10-2021 Ambulatory Clinical Summary {[id number]}CD:[id number] Normal [facility] Ambulatory Clinical Summaryo n 03-05-2021 Ambulatory Clinical Summary {[id number]}CD:[id number] Normal [facility] Gynecology Phone Visit- Tele healthon 03-05-2021 [...] only communication with the patient located at [address] [place] [address] [place] [id number], with no one else. 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 Comment on above: Result Comment: Elec tronically Signed By: ISABEL JACOBS, Joycelyn\.br\Date and Time Signed: 03/05/21 16:35 EDT Ambulatory Clinical Summaryo n 03-04-2021 Ambulatory Clinical Summary {[id number]}CD:[id number] [facility] Coding Summary.on 12-18-2020 Coding Summary. CODING DATE: 12/18/2020 [facility] STATUS: Home (Routine DC) PAYOR: [place] ADMIT DX: REASON FOR VISIT DX: U07.1 [...] Galvan CphT Date Saved: 12/18/2020 12:44 pm [facility] Physician Orderon 12-16-2020 Physician Order [id number] #1.00CD:127 [facility] Rapid COVID Antigen ([facility])on 12-16-2020 Rapid COV Int NEG Ctl Pass Normal [facility] Comment on above: Performed By: #### 2 [id number] #### [facility] [address] [place] [address] Rapid COV Int POS Ctl Pass Normal [facility] Comment on above: Performed By: #### 2 [id number] #### [facility] [address] [place] [address] SARS-CoV-2 (COVID-19) RNA INESSA+probe Ql (Unsp spec) Detected Abnormal Not Detected [facility] Comment on above: Result Comment: Left a message for callback. 12/16/2020 11:42:47 EDT Results faxed to infection control. The [employer]? System for Rapid Detection of SARS-CoV-2 is [...] For in vitro diagnostic use. In the [facility], only for use under an Emergency [...] or revoked sooner. Performed By: #### 2 [id number] #### [facility] [address] [place] [address] Employed in Healthcare Unknown Normal [facility] Comment on above: Performed By: #### 2 [id number] #### [facility] [address] [place] [address] First Test Unknown Normal [facility] Comment on above: Performed By: #### 2 [id number] #### [facility] [address] [place] [address] Hospitalized? NO Normal [facility] Comment on above: Performed By: #### 2 [id number] #### [facility] [address] [place] [address] ICU NO Normal [facility] Comment on above: Performed By: #### 2 [id number] #### [facility] [address] [place] [address] ? Unknown Normal [facility] Comment on above: Performed By: #### 2 [id number] #### [facility] [address] [place] [address] Resides in a Congregate Care Setting Unknown Normal [facility] Comment on above: Performed By: #### 2 [id number] #### [facility] [address] [place] [address] Symptomatic as defined by CDC YES Normal [facility] Comment on above: Performed By: #### 2 [id number] #### [facility] [address] [place] [address] Ambulatory Clinical Summaryo n 11-25-2020 Ambulatory Clinical Summary {[id number]}CD:[id number] [facility] Vital Signs Date Time Vital Sign Value Performing Clinician Facility 05-22-2025 15:02-0400 Body mass index (BMI) [Ratio] 31.49 kg/m2 Jose Michael DO Work Phone: [facility] 05-22-2025 15:02-0400 Body weight 80.63 kg Jose Michael DO Work Phone: [facility] 05-22-2025 15:02-0400 Diastolic blood pressure 92 mm[Hg] Jose Michael DO Work Phone: [facility] 05-22-2025 15:02-0400 Systolic blood pressure 138 mm[Hg] Jose Michael DO Work Phone: [facility] 05-14-2025 14:59-0400 Body mass index (BMI) [Ratio] 31.35 kg/m2 Ojse Michael DO Work Phone: [facility] 05-14-2025 14:59-0400 Body weight 80.29 kg Jose Michael DO Work Phone: [facility] 05-14-2025 14:59-0400 Diastolic blood pressure 90 mm[Hg] Joes Michael DO Work Phone: [facility] 05-14-2025 14:59-0400 Systolic blood pressure 140 mm[Hg] Jose Michael DO Work Phone: [facility] 05-13-2025 16:11-0400 Body weight 79.83 kg Marjorie Rico RN Work Phone: [facility] 04-30-2025 11:52-0400 Body mass index (BMI) [Ratio] 31 kg/m2 Rossana BISWAS Work Phone: [facility] 04-30-2025 11:52-0400 Body weight 79.38 kg Rossana BISWAS Work Phone: [facility] 04-30-2025 11:52-0400 Diastolic blood pressure 94 mm[Hg] Rossana Birmingham PA Work Phone: [facility] 04-30-2025 11:52-0400 Systolic blood pressure 140 mm[Hg] Rossana Birmingham PA Work Phone: [facility] 04-11-2025 15:38-0400 Body mass index (BMI) [Ratio] 30.2 kg/m2 Rossana Rachel PA Work Phone: [facility] 04-11-2025 15:38-0400 Body weight 77.34 kg Rossana Birmingham PA Work Phone: [facility] 04-11-2025 15:38-0400 Diastolic blood pressure 100 mm[Hg] Rsosana Rachel PA Work Phone: [facility] 04-11-2025 15:38-0400 Systolic blood pressure 142 mm[Hg] Rossana Birmingham PA Work Phone: [facility] 03-14-2025 11:36-0400 Body mass index (BMI) [Ratio] 29.23 kg/m2 Jose Michael DO Work Phone: [facility] 03-14-2025 11:36-0400 Body weight 74.84 kg Jose Michael DO Work Phone: [facility] 03-14-2025 11:36-0400 Diastolic blood pressure 76 mm[Hg] Jose Michael DO Work Phone: [facility] 03-14-2025 11:36-0400 Systolic blood pressure 112 mm[Hg] Jose Michael DO Work Phone: [facility] 02-20-2025 16:08-0400 Body mass index (BMI) [Ratio] 28.83 kg/m2 Rossana Rachel PA Work Phone: [facility] 02-20-2025 16:08-0400 Body weight 73.82 kg Rossana Birmingham PA Work Phone: [facility] 02-20-2025 16:08-0400 Diastolic blood pressure 82 mm[Hg] Rossana Birmingham PA Work Phone: [facility] 02-20-2025 16:08-0400 Systolic blood pressure 110 mm[Hg] Rossana Leach PA Work Phone: [facility] 01-14-2025 15:42-0400 Body mass index (BMI) [Ratio] 27.3 kg/m2 Jose Michael DO Work Phone: [facility] 01-14-2025 15:42-0400 Body weight 69.91 kg Jose Michael DO Work Phone: [facility] 01-14-2025 15:42-0400 Diastolic blood pressure 70 mm[Hg] Jose Michael DO Work Phone: [facility] 01-14-2025 15:42-0400 Systolic blood pressure 120 mm[Hg] Jose Michael DO Work Phone: [facility] 08-20-2024 10:55-0500 Body mass index (BMI) [Ratio] 25.93 kg/m2 Rossana Leach PA Work Phone: [facility] 08-20-2024 10:55-0500 Body weight 66.41 kg Rossana Rachel PA Work Phone: [facility] 08-20-2024 10:55-0500 Diastolic blood pressure 70 mm[Hg] Rossana Leach PA Work Phone: [facility] 08-20-2024 10:55-0500 Systolic blood pressure 120 mm[Hg] Rossana Leach PA Work Phone: [facility] 08-06-2024 09:38-0500 Body mass index (BMI) [Ratio] 25.47 kg/m2 Jose Michael DO Work Phone: [facility] 08-06-2024 09:38-0500 Body weight 65.23 kg Jose Michael DO Work Phone: [facility] 08-06-2024 09:38-0500 Diastolic blood pressure 70 mm[Hg] Jose Michael DO Work Phone: [facility] 08-06-2024 09:38-0500 Systolic blood pressure 120 mm[Hg] Jose Michael DO Work Phone: [facility] 06-29-2024 09:12-0400 Body mass index (BMI) [Ratio] 24.58 kg/m2 [facility] Nurse [facility] 06-29-2024 09:12-0400 Body weight 62.94 kg [facility] Nurse [facility] 06-29-2024 09:12-0400 Diastolic blood pressure 72 mm[Hg] [facility] Nurse [facility] 06-29-2024 09:12-0400 Systolic blood pressure 122 mm[Hg] [facility] Nurse [facility] 12-26-2022 13:45-0400 Body height 160.02 cm Jennifer Betzaida Other [facility] Other 12-26-2022 13:45-0400 Body mass index (BMI) [Ratio] 27.45 kg/m2 Jennifer Betzaida Other [facility] Other 12-26-2022 13:45-0400 Body temperature 97 [degF] Jennifer Betzaida Other [facility] Other 12-26-2022 13:45-0400 Body weight 70.31 kg Jennifer Betzaida Other [facility] Other 12-26-2022 13:45-0400 Diastolic blood pressure 89 mm[Hg] Jennifer Betzaida Other [facility] Other 12-26-2022 13:45-0400 Respiratory rate 18 /min Jennifer Betzaida Other [facility] Other 12-26-2022 13:45-0400 SaO2% (BldA) [Mass fraction] 100 % Jennifer Betzaida Other [facility] Other 12-26-2022 13:45-0400 Systolic blood pressure 135 mm[Hg] Jennifer Betzaida Other [facility] Other Encounters Encounter Date Encounter Type Care Provider Facility Start: 05-22-2025 End: 05-22-2025 ambulatory JOSE MICHAEL Not Available Start: 05-22-2025 End: 05-22-2025 flow sheet Jose Michael DO Work Phone: [facility] Comment on above: Third trimester preg alysa ([facility]); 31 weeks gestation of ([facility]) Start: 05-22-2025 End: 05-22-2025 Bamboo flowsheet Jose Michael DO Work Phone: [facility] Start: 05-22-2025 End: 05-22-2025 Bamboo flowsheet Jose Michael DO Work Phone: [facility] Start: 05-21-2025 End: 05-21-2025 Telephone encounter Chante Muse LD Work Phone: [facility] Start: 05-20-2025 End: 05-20-2025 Clinisync Result Encounter [...] sheet Jose Michael DO Work Phone: [facility] Comment on above: Third trimester preg alysa ([facility]); 30 weeks gestation of ([facility]); induced hypertension, antepartum ([facility]) Start: 05-14-2025 End: 05-14-2025 Bamboo flowsheet Jose Michael DO Work Phone: [facility] Start: 05-14-2025 End: 05-14-2025 Bamboo flowsheet Jose Michael DO Work Phone: [facility] Start: 05-13-2025 End: 05-13-2025 ambulatory Marjorie Rico RN Work Phone: [facility] Comment on above: Gestational diabetes mellitus (GDM) in third trimester, gestational diabetes method of control unspecified Start: 05-11-2025 End: 05-11-2025 Clinisync Result Encounter Rossana BISWAS Work Phone: [facility] Unsolicited Start: 05-11-2025 End: 05-11-2025 Clinisync Result Encounter Rossana BISWAS Work Phone: [facility] Unsolicited Start: 05-10-2025 End: 05-10-2025 Chart abstracting Scanning Provider External [facility] Start: 05-06-2025 End: 05-06-2025 Clinisync Result Encounter [...] encounter Jose Rodriguez DO Work Phone: [facility] Start: 04-30-2025 End: 04-30-2025 Bamboo flowsheet Rossana BISWAS Work Phone: [facility] Start: 04-30-2025 End: 04-30-2025 Bamboo flowsheet Rossana BISWAS Work Phone: [facility] Start: 04-30-2025 End: 04-30-2025 ambulatory ROSSANA LEACH Not Available Start: 04-30-2025 End: 04-30-2025 Patient encounter status Rossana BISWAS Work Phone: [facility] Work Phone: Start: 04-30-2025 End: 04-30-2025 flow sheet Rossana BISWAS Work Phone: [facility] Comment on above: BP check; -induced hypertension in third trimester ([facility]); Gestational diabetes mellitus (GDM) in third trimester, gestational diabetes method of control unspecified ([facility]) Start: 04-27-2025 End: 04-27-2025 Clinisync Result Encounter Rossana BISWAS Work Phone: [facility] Unsolicited Start: 04-27-2025 End: 04-27-2025 Clinisync Result Encounter Rossana BISWAS Work Phone: [facility] Unsolicited Start: 04-25-2025 End: 04-25-2025 flow sheet Rossana BISWAS Work Phone: [facility] Comment on above: Second trimester pre gnancy [...] Comment on above: Second trimester pre gnancy ([facility]); 25 weeks gestation of ([facility]); Diabetes mellitus screening; Elevated BP without [...] Comment on above: Second trimester pre gnancy ([facility]); 21 weeks gestation of ([facility]) Start: 03-08-2025 End: 03-08-2025 Clinisync Result Encounter [...] Start: 08-10-2024 End: 08-10-2024 ambulatory PHYSICIAN NO [facility] Work Phone: Start: 08-10-2024 End: 08-10-2024 Departed Referred PHYSICIAN NO [facility] Start: 08-06-2024 [...] 12-26-2022 End: 12-26-2022 ambulatory Jennifer Huston Other [facility] Other Start: 12-26-2022 End: 12-26-2022 Patient encounter procedure CASINO ATTENDANT-C Jennifer Huston Work Phone: [facility] Work Phone: [...] Start: 05-18-2025 US OB BPP W NON-STRESS Rsosana BISWAS Work Phone: Start: 05-18-2025 ALL CBC [...] Start: 12-26-2022 Plain X-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 hand CASINO ATTENDANT-C Jennifer Huston Work Phone: Start: 11-02-2022 Cytp [...] malign ant neoplasm of cervix Pap Smear [facility] Start: 06-04-2025 End: 06-04-2025 Patient encounter procedure 06/04/2025 1:00 PM EDT Appointment [facility] - Ultrasound [address] [place] [phone] Jose Rodriguez R, DO [address] [place] [address] [facility] - Ultrasound Start: 05-28-2025 End: 05-28-2025 Patient encounter procedure 05/28/2025 10:30 AM EDT Routine [facility] [address] [place] [id number] Jose Rodriguez DO [address] [place] [address] [facility] Start: 05-27-2025 Influenza vaccination [facility] Start: 05-22-2025 End: 05-22-2025 Patient encounter procedure 05/22/2025 2:40 PM EDT Routine [facility] [address] [place] [phone] Jose Rodriguez DO [address] [place] [address] [facility] Start: 05-14-2025 End: 05-14-2025 Patient encounter procedure 05/14/2025 2:40 PM EDT Routine [facility] [place] [facility] [address] [place] [address] Jose Rodriguez DO [address] [place] [address] [facility] [place] [facility] Start: 05-14-2025 End: 05-14-2026 Alanine aminotransferase [Enzymatic activity/volume] in Serum or Plasma ALT Lab Routine induced hypertension, antepartum ([facility]) Expected: 05/14/2025 (Approximate), Expires: 05/14/2026 [facility] Comment on above: Expected: 05/14/2025 (Approximate), Expires: 05/14/2026 Start: 05-14-2025 End: 05-14-2026 Aspartate aminotransferase [Enzymatic activity/volume] in Serum or Plasma AST Lab Routine induced hypertension, antepartum ([facility]-HCC) Expected: 05/14/2025 (Approximate), Expires: 05/14/2026 [facility] Comment on above: Expected: 05/14/2025 (Approximate), Expires: 05/14/2026 Start: 05-14-2025 End: 05-14-2026 CBC W Auto Differential panel - Blood CBC and differential Lab Routine induced hypertension, antepartum ([facility]CC) Expected: 05/14/2025 (Approximate), Expires: 05/14/2026 [facility] Comment on above: Expected: 05/14/2025 (Approximate), Expires: 05/14/2026 Start: 05-14-2025 End: 05-14-2026 Creatinine [Mass/volume] in Serum or Plasma Creatinine Lab Routine induced hypertension, antepartum ([facility]-HCC) Expected: 05/14/2025 (Approximate), Expires: 05/14/2026 [facility] Work Phone: Comment on above: Expected: 05/14/2025 (Approximate), Expires: 05/14/2026 Start: 05-14-2025 End: 05-14-2026 Lactate dehydrogenase [Enzymatic activity/volume] in Serum or Plasma by Lactate to pyruvate reaction Lactate dehydrogenase Lab Routine induced hypertension, antepartum ([facility]-H[facility]) Expected: 05/14/2025, Expires: 05/14/2026 [facility] Comment on above: Expected: 05/14/2025 , Expires: 05/14/2026 Start: 05-14-2025 End: 05-14-2026 Protein, urine, 24 hour Protein, urine, 24 hour Lab Routine induced hypertension, antepartum ([facility]-HCC) Expected: 05/14/2025 (Approximate), Expires: 05/14/2026 [facility] Comment on above: Expected: 05/14/2025 (Approximate), Expires: 05/14/2026 Start: 05-14-2025 End: 05-14-2026 Pt and ptt Pt and ptt Lab Routine induced hypertension, antepartum ([facility]HS-HCC) Expected: 05/14/2025, Expires: 05/14/2026 [facility] Comment on above: Expected: 05/14/2025 , Expires: 05/14/2026 Start: 05-14-2025 End: 05-14-2026 Urate [Mass/volume] in Serum or Plasma Uric acid Lab Routine induced hypertension, antepartum ([facility]HS-HCC) Expected: 05/14/2025 (Approximate), Expires: 05/14/2026 [facility] Comment on above: Expected: 05/14/2025 (Approximate), Expires: 05/14/2026 Start: 05-14-2025 End: 05-14-2026 Urea nitrogen [Mass/volume] in Serum or Plasma BUN Lab Routine induced hypertension, antepartum ([facility]-HCC) Expected: 05/14/2025, Expires: 05/14/2026 [facility] Comment on above: Expected: 05/14/2025 , Expires: 05/14/2026 Start: 05-13-2025 End: 05-13-2025 ambulatory 05/13/2025 1:30 PM EDT Support Visit [facility] [address] [place] [phone] Marjorie Rico, RN [address] [place] [address] Xenia Rayo, RD [address], [address] [place] [address] [facility] Start: 04-30-2025 End: 10-31-2025 US biophysical profile [...] control unspecified ([facility]) Expected: 04/30/2025, Expires: 08/30/2025 [facility] Comment on above: Expected: 04/30/2025 , Expires: 08/30/2025 Start: 04-30-2025 End: 04-30-2025 Patient encounter procedure 04/30/2025 10:50 AM EDT Routine [facility] [address] [place] [address] Rossana Leach PA [address] [place] [address] [facility] Start: 04-25-2025 End: 04-25-2025 Patient encounter procedure [facility] Comment on above: Arrived Start: 04-25-2025 End: 04-25-2026 Alanine aminotransferase [Enzymatic activity/volume] in Serum or Plasma ALT Lab Routine induced hypertension, antepartum ([facility]-HCC) Expected: 04/25/2025 (Approximate), Expires: 04/25/2026 [facility] Comment on above: Expected: 04/25/2025 (Approximate), Expires: 04/25/2026 Start: 04-25-2025 End: 04-25-2026 Aspartate aminotransferase [Enzymatic activity/volume] in Serum or Plasma AST Lab Routine induced hypertension, antepartum ([facility]HS-HCC) Expected: 04/25/2025 (Approximate), Expires: 04/25/2026 [facility] Comment on above: Expected: 04/25/2025 (Approximate), Expires: 04/25/2026 Start: 04-25-2025 End: 04-25-2026 CBC W Auto Differential panel - Blood CBC and differential Lab Routine induced hypertension, antepartum ([facility]-HCC) Expected: 04/25/2025 (Approximate), Expires: 04/25/2026 [facility] Comment on above: Expected: 04/25/2025 (Approximate), Expires: 04/25/2026 Start: 04-25-2025 End: 04-25-2026 Creatinine [Mass/volume] in Serum or Plasma Creatinine Lab Routine induced hypertension, antepartum ([facility]HS-HCC) Expected: 04/25/2025 (Approximate), Expires: 04/25/2026 [facility] Work Phone: Comment on above: Expected: 04/25/2025 (Approximate), Expires: 04/25/2026 Start: 04-25-2025 End: 04-25-2026 Lactate dehydrogenase [Enzymatic activity/volume] in Serum or Plasma by Lactate to pyruvate reaction Lactate dehydrogenase Lab Routine induced hypertension, antepartum ([facility]HS-HCC) Expected: 04/25/2025, Expires: 04/25/2026 [facility] Comment on above: Expected: 04/25/2025 , Expires: 04/25/2026 Start: 04-25-2025 End: 04-25-2026 Protein, urine, 24 hour Protein, urine, 24 hour Lab Routine induced hypertension, antepartum ([facility]HS-HCC) Expected: 04/25/2025 (Approximate), Expires: 04/25/2026 [facility] Comment on above: Expected: 04/25/2025 (Approximate), Expires: 04/25/2026 Start: 04-25-2025 End: 04-25-2026 Pt and ptt Pt and ptt Lab Routine induced hypertension, antepartum ([facility]HS-HCC) Expected: 04/25/2025, Expires: 04/25/2026 [facility] Comment on above: Expected: 04/25/2025 , Expires: 04/25/2026 Start: 04-25-2025 End: 04-25-2026 Urate [Mass/volume] in Serum or Plasma Uric acid Lab Routine induced hypertension, antepartum ([facility]HS-HCC) Expected: 04/25/2025 (Approximate), Expires: 04/25/2026 [facility] Comment on above: Expected: 04/25/2025 (Approximate), Expires: 04/25/2026 Start: 04-25-2025 End: 04-25-2026 Urea nitrogen [Mass/volume] in Serum or Plasma BUN Lab Routine induced hypertension, antepartum ([facility]HS-HCC) Expected: 04/25/2025, Expires: 04/25/2026 [facility] Comment on above: Expected: 04/25/2025 , Expires: 04/25/2026 Start: 04-11-2025 End: 04-11-2025 Patient encounter procedure 04/11/2025 3:30 PM EDT Routine [facility] [address] [place] [phone] Rossana Leach PA [address] [place] [address] [facility] Start: 04-11-2025 End: 04-11-2026 CBC panel - Blood by Automated count CBC Lab Routine Diabetes mellitus screening Expected: 04/11/2025 (Approximate), Expires: 04/11/2026 [facility] Work Phone: Comment on above: Expected: 04/11/2025 [...] Routine [facility] [address] [place] [address] Jose Rodriguez, [address] [place], [place] [id number] [facility] Start: 02-20-2025 End: 02-20-2025 Patient encounter procedure [facility] Comment on above: Arrived Start: 02-20-2025 End: 04-22-2025 Alpha fetoprotein, maternal Alpha fetoprotein, maternal Lab Routine 18 weeks gestation of Expected: 02/20/2025 (Approximate), Expires: 04/22/2025 [facility] Comment on above: Expected: 02/20/2025 (Approximate), [...] Initial [facility] [address] [place] [phone] [facility] Start: 12-14-2024 End: 12-14-2024 Professional / ancillary services management 12/14/2024 8:30 AM EDT Ancillary Procedure [facility] [address] [place] [phone] [facility] Start: 08-20-2024 End: 08-20-2024 Patient encounter procedure 08/20/2024 10:20 AM EST Office Visit [facility] [address] [address] [place] [address] Rossana Leach PA [address] [place], [place] [id number] [facility] Start: 08-06-2024 End: 08-06-2024 Patient encounter procedure 08/06/2024 9:10 AM EST [facility]ine [facility] [address] [place] [address] Jose Rodriguez DO [address] [place] [place] [address] [facility] Start: 06-29-2024 End: 06-29-2025 ABO/Rh ABO/Rh Lab Routine Missed menses , unspecified gestational age Expected: 06/29/2024 (Approximate), Expires: 06/29/2025 [facility] Comment on above: Expected: 06/29/2024 (Approximate), Expires: 06/29/2025 Start: 06-29-2024 End: 06-29-2025 Blood type and Indirect antibody screen panel - Blood Type and screen Lab Routine Missed menses , unspecified gestational age Expected: 06/29/2024 (Approximate), Expires: 06/29/2025 [facility] Work Phone: Comment on above: Expected: 06/29/2024 (Approximate), Expires: 06/29/2025 Start: 06-29-2024 End: 06-29-2025 Drugs of abuse panel - Urine by Screen method Rapid drug screen, urine Lab Routine , unspecified gestational age Encounter for supervision of normal first in first trimester Expected: 06/29/2024 (Approximate), Expires: 06/29/2025 [facility] Comment on above: Expected: 06/29/2024 (Approximate), Expires: 06/29/2025 Start: 06-29-2024 End: 06-29-2025 US Pelvis transvaginal US OB transvaginal Imaging Routine Missed menses Expected: 06/29/2024 (Approximate), Expires: 06/29/2025 [facility] Comment on above: Expected: 06/29/2024 (Approximate), Expires: 06/29/2025 Start: 05-27-2024 Influenza vaccination Influenza Vacc ine (#1) [facility] Start: 05-01-2024 DTaP,Tdap and Td Vac cines (7 - Td or Tdap) DTaP,Tdap and Td Vaccines (7 - Td or Tdap) [facility] Start: 2020 DTaP,Tdap and Td Vac cines (1 - Tdap) DTaP,Tdap and Td Vaccines (1 - Tdap) [facility] Start: 2019 Adult BMI Screening Adult BMI Screen ing [facility] Start: 2013 Depression Screening Depression Scre ening [facility] Start: 2013 Tobacco Screening Tobacco Screening [facility] Bacteria identified in Urine by Culture Urine culture Microbiology Routine Missed menses Ordered: 06/29/2024 [facility] Comment on above: Ordered: 06/29/2024 Bacteria identified in Urine by Culture Urine culture Microbiology Routine Urinary frequency Ordered: 02/20/2025 [facility] Comment on above: Ordered: 02/20/2025 CBC W Auto Different ial panel - Blood CBC and differential Lab Routine Missed menses , unspecified gestational age Ordered: 06/29/2024 [facility] Comment on above: Ordered: 06/29/2024 CHLAMYDIA TRACHOMATI S (GENITO/STI) CHLAMYDIA TRACHOMATIS (GENITO/STI) Lab Routine STD exposure Ordered: 02/20/2025 [facility] Comment on above: Ordered: 02/20/2025 Cytology Cervical or vaginal smear or scraping study Pap Smear Pathology and Cytology Routine Well woman exam with routine gynecological exam Ordered: 02/20/2025 [facility] Comment on above: Ordered: 02/20/2025 Hemoglobin A1c/Hemoglobin.total in Blood Hemoglobin A1c Lab Routine Missed menses , unspecified gestational age Ordered: 06/29/2024 [facility] Comment on above: Ordered: 06/29/2024 Hepatitis B virus beltran rface Ag [Presence] in Serum or Plasma by Immunoassay Hepatitis B surface antigen Lab Routine Missed menses , unspecified gestational age Ordered: 06/29/2024 [facility] Comment on above: Ordered: 06/29/2024 Hepatitis C virus Ab [Presence] in Serum or Plasma by Immunoassay Hepatitis C antibody Lab Routine Missed menses , unspecified gestational age Ordered: 06/29/2024 [facility] Comment on above: Ordered: 06/29/2024 HIV-1/HIV-2 antigen/antibody combination immunoassay HIV-1 and HIV-2 antibodies Lab Routine Missed menses , unspecified gestational age Ordered: 06/29/2024 [facility] Comment on above: Ordered: 06/29/2024 Neisseria gonorrhoea e DNA [Presence] in Unspecified specimen by INESSA with probe detection Neisseria gonorrhea DNA probe, direct Lab Routine STD exposure Ordered: 02/20/2025 [facility] Comment on above: Ordered: 02/20/2025 Reagin Ab [Presence] in Serum by RPR RPR Lab Routine Missed menses , unspecified gestational age Ordered: 06/29/2024 [facility] Comment on above: Ordered: 06/29/2024 Rubella antibody, IgG Rubella an tibody, IgG Lab Routine Missed menses , unspecified gestational age Ordered: 06/29/2024 [facility] Comment on above: Ordered: 06/29/2024 SURESWAB(R) ADVANCED VAGINITIS PLUS, TMA SURESWAB(R) ADVANCED VAGINITIS PLUS, TMA Pathology and Cytology Routine STD exposure Ordered: 02/20/2025 [facility] Work Phone: Comment on above: Ordered: 02/20/2025 Immunizations Immunization Date Immunization Notes Care Provider Fa aliza 08-28-2003 influenza virus vacc ine, unspecified formulation Nom Nurse [facility] Payers Date Payer Category Payer Medicaid [place] [employer] [id number] 2024 Blue Cross [employer] Managed Care - PPO [id number] 2023 Medicaid [employer] [place] [id number] 2023-Present [address] [place] [id number] 2023 Medicaid (Managed Care) [facility] MEDICAID [id number] 2021 Blue Cross Blue Shield [id number] 2021 Unknown BCBS BCBS [id number] 2021-Present [phone] [address] [place] [address] [id number] 2001 Unknown [id number] 2.16.840.1.917938.3.579.2. 593 2001 Unknown [id number] 2.16.840.1.490310.3.579.2. 593 2001 Unknown [id number] 2.16.840.1.794981.3.579.2. 593 2001 Unknown [id number] 2.16.840.1.901850.3.579.2. 593 2001 Unknown [id number] 2.16.840.1.695213.3.579.2. 593 2001 Unknown [id number] 2.16.840.1.899008.3.579.2. 593 2001 Unknown [id number] 2.16.840.1.283319.3.579.2. 593 2001 Unknown [id number] 2.16.840.1.679737.3.579.2. 593 2001 Unknown [id number] 2.16.840.1.360418.3.579.2. 593 2001 Unknown [id number] 2.16.840.1.318652.3.579.2. 593 2001 Unknown [id number] 2.16.840.1.480298.3.579.2. 593 2001 Unknown [id number] 2.16.840.1.507669.3.579.2. 593 2001 Unknown [id number] 2.16.840.1.666981.3.579.2. 593 2001 Unknown [id number] 2.16.840.1.841150.3.579.2. 593 2001 Unknown [id number] 2.16.840.1.853365.3.579.2. 593 2001 Unknown [id number] 2.16.840.1.348551.3.579.2. 593 2001 Unknown [id number] 2.16.840.1.225437.3.579.2. 593 2001 Unknown [id number] 2.16.840.1.101064.3.579.2. 593 2001 Unknown [id number] 2.16.840.1.031575.3.579.2. 593 2001 Unknown [id number] 2.16.840.1.839658.3.579.2. 593 2001 Unknown [id number] 2.16.840.1.792197.3.579.2. 593 2001 Unknown [id number] 2.16.840.1.851605.3.579.2. 1286 2001 Unknown [id number] 2.16.840.1.320456.3.579.2. 125 2001 Unknown [id number] 2.16.840.1.885786.3.579.2. 125 2001 Unknown [id number] 2.16840.1.883379.3.579.2. 125 2001 Unknown [id number] 2.16.840.1.215523.3.579.2. 125 2001 Unknown [id number] 2.16.840.1.251534.3.579.2. 125 2001 Unknown [id number] 2.16.840.1.464372.3.579.2. 1259 2001 Unknown [id number] 2.16.840.1.446858.3.579.2. 125 2001 Unknown [id number] 2.16.840.1.895766.3.579.2. 125 2001 Unknown [id number] 2.16.840.1.468185.3.579.2. 125 2001 Unknown [id number] 2.16.840.1.374397.3.579.2. 1258 2001 Unknown [id number] 2.16.840.1.519527.3.579.2. 125 2001 Unknown [id number] 2.16.840.1.218551.3.579.2. 1259 2001 Unknown [id number] 2.16.840.1.676022.3.579.2. 1259 1959 Self-pay 1959 Unknown [id number] 1959 Unknown [id number] Unknown [id number] 2.16.840.1.728203.3.579.2. 593 Unknown [id number] 2.16.840.1.448246.3.579.2. 531 Social History Date Type Detail Facility Start: 10-13-2023 End: 06-29-2024 Sex Assigned At [facility] [employer] Other Start: 2001 Sex Assigned At Female F [facility] Start: 10-13-2023 End: 05-10-2025 Tobacco smoking status DEIS Never smoked tobacco [facility] Start: 06-29-2024 End: 04-30-2025 Alcoholic beverage intake Current drinker of alcohol (finding) [facility] Start: 10-13-2023 End: 06-29-2024 History of Social function [facility] Start: 05-24-2024 [facility] Start: 2001 Sex assigned at Not on file [facility] Tobacco smoking stat [facility] Unknown if ever smoked [facility] Work Phone: Start: 04-29-2015 End: 08-11-2024 Sex Female (finding) [facility] Start: 05-10-2025 Alcoholic beverage intake Ex-drinker (finding) [facility] Unknown [facility] Medical Equipment Procedure Code Equipment Code Equipment Origin al Text Equipment Identifier Dates 1 strip by In Vi tro route Daily Use in the morning prior to breakfast, 1 hour after each meal for a total of 4times daily. [id number] Start: 05-08-2025 End: 06-07-2025 1 each by In Vit ro route Daily Use to check FSBS four times daily [id number] Start: 05-08-2025 End: 06-07-2025 Clinical Notes 12-26-2022 to 05-22-2025 Meghana Felder [employer] - 05/22/2025 2:40 PM EDTTelephone Encounter - Chante Muse, LD - 05/21/2025 4:35 PM EDTTelephone Encounter - Chante Muse, LD - 05/21/2025 4:35 PM EDT Note Date [...] to check FSBS. Blood Glucose Monitoring Suppl (Nano Think Glucometer) w/Device kit 1 kit, Does not [...] History of blood transfusion Lead poisoning Miscarriage ([facility]) Nonsmoker Post depression HISTORY PAST MEDICAL [...] nursing note reviewed. Exam conducted with a husbandry technician present. Vitals: Estimated body mass index is 31.49 kg/m as calculated from the following: Height as of 01/06/23: 5' 3 . Weight as of this encounter: 177 lb 12 oz. BP: (!) 138/92 Patient's last menstrual period was 10/15/2024 (exact date). ASSESSMENT & PLAN ICD-10-CM 1. Third trimester ([facility]) Z34.93 POCT urinalysis dipstick manually resulted 2. 31 weeks gestation of ([facility]) Z3A.31 Return OB: Patient presents today [...] urine protein. Pt calling in sugars to M. Orders Placed This Encounter Procedures POCT urinalysis dipstick manually resulted Follow Up: Patient is to return to office in 2 week for routine OB appointment. Documented by Meghana Felder LPN on behalf of: Jose Rodriguez DO documented in this encounter [facility] 05-21-2025 Miscellaneous Notes Called regarding blood sugar logs from 05/14/25-05/19/25. Vmial had three elevated fasting blood sugars and [...] sugars next week. documented in this encounter [facility] [employer] 05-21-2025 Telephone encounter Note Called regarding blood [...] will send in blood sugars next week. [facility] [employer] Work Phone: 05-14-2025 History of Presen t illness Narrative Reason for Appointment: Patient ID: Vimal Funes is a 25 y.o. female who presents for Routine Visit Patient presents today for Return OB appointment. MEDICATIONS Current Outpatient Medications Medication Instructions Alcohol Swabs (Alcohol Prep Pad) 70 % pads 1 Pad, Topical, Daily, Use four times daily to check FSBS. Blood Glucose Monitoring Suppl (D-LookStat Glucometer) w/Device kit 1 kit, Does not [...] nursing note reviewed. Exam conducted with a husbandry technician present. Vitals: Estimated body mass index is 31.35 kg/m as calculated from the following: Height as of 01/06/23: 5' 3 . Weight as of this encounter: 177 lb. BP: 140/90 Patient's last menstrual period was 10/15/2024 (exact date). ASSESSMENT & PLAN ICD-10-CM 1. Third trimester ([facility]) Z34.93 POCT urinalysis dipstick manually resulted 2. 30 weeks gestation of ([facility]) Z3A.30 POCT urinalysis dipstick manually resulted 3. induced hypertension, antepartum ([facility]) O13.9 Creatinine Protein, urine, 24 hour [...] Jose Rodriguez DO documented in this encounter [facility] 05-13-2025 Group counseling note Patient: Vimal Funes [...] Face to face time was 110 minutes. [employer] Work Phone: 05-13-2025 Miscellaneous Notes Patient: Vimal [...] was 110 minutes. documented in this encounter [facility] 05-07-2025 Telephone encounter Note Called pt to let her know that she did not pass her 3 hour glucose test and that I would be sending in supplies and referring her to diabetic education. [facility] 05-07-2025 Miscellaneous Notes Called pt to let her know that she did not pass her 3 hour glucose test and that I would be sending in supplies and referring her to diabetic education. documented in this encounter [facility] 04-30-2025 History of Presen t illness Narrative [...] History of blood transfusion Lead poisoning Miscarriage ([facility]) Nonsmoker Post depression /anxiety Social History [...] resulted 2. -induced hypertension in third trimester ([facility]) O13.3 US biophysical profile w non stress test US OB follow up transabdominal approach labetalol (Normodyne) 300 MG tablet 3. Gestational diabetes mellitus (GDM) in third trimester, gestational diabetes method of control unspecified ([facility]) O24.419 US biophysical profile w non [...] of: TRUE Argueta documented in this encounter [facility] 04-25-2025 History of Presen t illness Narrative [...] History of blood transfusion Lead poisoning Miscarriage ([facility]) Nonsmoker Post depression HISTORY PAST MEDICAL [...] ASSESSMENT & PLAN ICD-10-CM 1. Second trimester ([facility]) Z34.92 2. 27 weeks gestation of ([facility]) Z3A.27 Patient presents for BP check. BP elevated today despite taking 100mg bid labetolol daily. We will increase to 200mg bid daily. Patient given labs and instructed to follow up with OB should she develop headache or vision changes Pt will follow up with DR Rodriguez next week Documented by TRUE Argueta on behalf of: TRUE Argueta documented in this encounter [facility] 07-17-2025 History of Presen t illness Narrative Reason [...] History of blood transfusion Lead poisoning Miscarriage ([facility]) Nonsmoker Post depression HISTORY PAST MEDICAL HISTORY SOCIAL HISTORY Past Medical History: Diagnosis Date Anemia Gestational diabetes ([facility]) History of blood transfusion Lead poisoning Miscarriage ([facility]) Nonsmoker Post depression /anxiety Social History [...] ASSESSMENT & PLAN ICD-10-CM 1. Second trimester ([facility]) Z34.92 POCT urinalysis dipstick manually resulted 2. 25 weeks gestation of ([facility]) Z3A.25 3. Diabetes mellitus screening Z13.1 [...] of: TRUE Argueta documented in this encounter [facility] 03-14-2025 History of Presen t illness Narrative [...] Medical History: Diagnosis Date Anemia Gestational diabetes ([facility]) History of blood transfusion Lead poisoning Miscarriage ([facility]) Nonsmoker Post depression HISTORY PAST MEDICAL HISTORY SOCIAL HISTORY Past Medical History: Diagnosis Date Anemia Gestational diabetes ([facility]) History of blood transfusion Lead poisoning Miscarriage ([facility]) Nonsmoker Post depression /anxiety Social History [...] nursing note reviewed. Exam conducted with a husbandry technician present. Vitals: Estimated body mass index is 29.23 kg/m as calculated from the following: Height as of 01/06/23: 5' 3 . Weight as of this encounter: 165 lb. BP: 112/76 Patient's last menstrual period was 10/15/2024 (exact date). ASSESSMENT & PLAN ICD-10-CM 1. Second trimester ([facility]) Z34.92 POCT urinalysis dipstick manually resulted 2. 21 weeks gestation of ([facility]) Z3A.21 Patient presents today for a routine obstetrics appointment. Patient is currently 21w3d with a Estimated Date of Delivery: 07/22/25. Patient has no complaints at this time and will return to clinic in 4 weeks. Documented by Diamond Borja LPN on behalf of: Jose Rodriguez DO documented in this encounter [facility] 02-20-2025 History of Presen t illness Narrative [...] transfusion Lead poisoning Miscarriage Nonsmoker Post depression ([facility]) HISTORY PAST MEDICAL HISTORY SOCIAL HISTORY Past Medical History: Diagnosis Date Anemia Gestational diabetes History of blood transfusion Lead poisoning Miscarriage Nonsmoker Post depression ([facility]) /anxiety Social History Tobacco Use Smoking status: [...] nursing note reviewed. Exam conducted with a husbandry technician present. Vitals: Estimated body mass index [...] of: TRUE Argueta documented in this encounter [facility] 01-14-2025 History of Presen t illness Narrative [...] nursing note reviewed. Exam conducted with a husbandry technician present. Vitals: Estimated body mass index [...] meat, [facility] Patient has been consulted regarding any [...] Jose Rodriguez DO documented in this encounter [facility] 08-20-2024 History of Presen t illness Narrative [...] having a D&C Hysteroscopy performed at [facility] with Dr. Rodriguez. Pathology results was reviewed with the patient in great detail and all restrictions have been lifted. Follow Up: Patient is to return to the office for annual exam unless needed otherwise. Documented by TRUE Argueta on behalf of: TRUE Argueta documented in this encounter [facility] 08-06-2024 History of Presen t illness Narrative [...] nursing note reviewed. Exam conducted with a husbandry technician present. Vitals: Estimated body mass index [...] vaginal bleeding. Patient to discuss date with Tug Master prior to leaving. Patient is able to obtain work note for the week and if longer is needed she will reach out to office. Documented by Diamond Borja LPN on behalf of: Jose Rodriguez DO documented in this encounter [facility] 06-29-2024 History of Presen t illness Narrative [...] blood transfusion Lead poisoning Nonsmoker Post depression ([facility]) Family History Problem Relation Name Age of [...] meat, and [facility]. Patient has also been advised to [...] by: Whitney Peacock documented in this encounter [facility] 12-26-2022 Evaluation note Encounter Date Diagnosis Assessment [...] appointment to be seen soon as possible [employer] Other EvMg[employer] noteNo assessment information available [facility] Work Phone: [email or web address] note* Diagnosis Missed menses , unspecified gestational age Encounter for supervision of normal first in first trimester Nausea Nausea alone 7 weeks gestation of documented in this encounter [facility]* Diagnosis Miscarriage Unspecified spontaneous without mention of complication documented in this encounter [facility]* Diagnosis Postoperative examination Follow-up examination, following unspecified surgery documented in this encounter [facility]* Diagnosis 13 weeks gestation of Second trimester state, incidental documented in this encounter [facility]* Diagnosis Screening, , for anatomic survey Encounter for anatomic survey Well woman exam with routine gynecological exam Routine gynecological examination STD exposure Second trimester state, incidental 18 weeks gestation of Urinary frequency documented in this encounter [facility]* Diagnosis Second trimester ([facility]) state, incidental 21 weeks gestation of ([facility]) documented in this encounter [facility]* Diagnosis Second trimester ([facility]) state, incidental [...] of control unspecified [facility] Diagnosis Third trimester ([facility]) state, incidental 30 weeks gestation of ([facility]) induced hypertension, antepartum ([facility]) Transient hypertension of , antepartum [facility] Diagnosis Third trimester ([facility]) state, incidental 31 weeks gestation of ([facility]) documented in this [facility]ructionsNot on filedocumented in this encounterPro[facility]iar [facility] SystemInstructionsNot on filedocumented in this encounterProMediar Health SystemInstructionsNot on filedocumented in this encounter[facility] Summary Purpose Family History No Family History Records FoundNo Family History Records FoundNo Family History Records FoundNo Family History Records FoundNo Family History Records Found Advance Directives No Advanced Directives Records Found Advance Directive Response Recorded Date/ Time Advance Directives No December 27 23 6:21am Additional Source Comments INFORMATION SOURCE (unrecogn ized section and content) DATE CREATED AUTHOR 09/24/2021 [facility] DATE CREATED AUTHOR AUTHOR'S ORGANIZ ATION 12/07/2022 [facility] DATE CREATED AUTHOR AUTHOR'S ORGANIZ ATION 08/15/2024 [facility] DATE CREATED AUTHOR AUTHOR'S ORGANIZ ATION 05/14/2025 [facility] DATE CREATED AUTHOR AUTHOR'S ORGANIZ ATION 05/24/2025 [facility] Special[facility] EPIC REASON FOR VISIT (unrecogniz [...] of control unspecified Jose Rodriguez DO [address] [place] [address] Phone: tel: fax: Maternal- Medicine at [facility] [address] [facility] [place] [address] Phone: tel: fax: Referral ID Status Reason Start Date Expiration Date Visits Requested Visits Authorized [id number] Pending Review Specialty Services Required 05/09/2025 05/09/2026 1 1 Care Teams (unrecognized sec tion and content) Team Status: Inactive Member Role Status Dates Jennifer Huston NP-C Attending Provider Active Aprn Relationship Specialty Start Date End Date Vaishali Zapata MD [address] [place] [address] PCP - General Family Medicine 02/04/23 Aprn Relationship Specialty Start Date End Date Vaishali Zapata MD [address] [place] [address] PCP - General Family Medicine 02/04/23 Team Status: Active Member Role Status Dates PHYSICIAN NO FAMILY Primary Care Provider Active Team Status: Inactive Member Role Status Dates PHYSICIAN NO FAMILY Primary Care Provider Active Start: August 10, 2024 End: August 10, 2024 Jose Rodriguez DO Attending Provider Active Start : August 10, 2024 End: August 10, 2024 Aprn Relationship Specialty Start Date End Date Unallocated, [place] [address] PCP - General Family Medicine 08/03/24 Aprn Relationship Specialty Start Date End Date Unallocated, Arjun Vo MD [facility] [address] [facility] [place] [address] PCP - General Family Medicine 08/03/24 Aprn Relationship Specialty Start Date End Date Unallocated, Arjun Vo MD [facility] [address] [facility] [place] [address] PCP - General Family Medicine 08/03/24 Aprn Relationship Specialty Start Date End Date Unallocated, Arjun Vo MD [facility] [address] [facility] [place] [address] PCP - General Family Medicine 08/03/24 Aprn Relationship Specialty Start Date End Date Unallocated, Arjun Vo MD [facility] [place] [address] PCP - General Family Medicine 08/03/24 Aprn Relationship Specialty Start Date End Date Unallocated, Arjun Vo MD [facility] [place] [address] PCP - General Family Medicine 08/03/24 Aprn Relationship Specialty Start Date End Date Unallocated, Arjun Vo MD [facility] [place] [address] PCP - General Family Medicine 08/03/24 Aprn Relationship Specialty Start Date End Date Unallocated, Arjun Vo MD [facility] [address] [facility] [facility] [place] [address] PCP - General Family Medicine 08/03/24 Aprn Relationship Specialty Start Date End Date Unallocated, Arjun Vo MD [facility] [address] [facility] [place] [address] PCP - General Family Medicine 08/03/24 Aprn Relationship Specialty Start Date End Date Unallocated, Arjun Vo MD [facility] [place] [address] PCP - General Family Medicine 08/03/24 Aprn Relationship Specialty Start Date End Date Unallocated, Arjun Vo MD [address] [place] [address] [place] [address] PCP - General Family Medicine 08/03/24 Aprn Relationship Specialty Start Date End Date Unallocated, Arjun Vo MD [facility] [place] [address] PCP - General Family Medicine 08/03/24 Aprn Relationship Specialty Start Date End Date Unallocated, Arjun Vo MD [facility] [place] [address] PCP - General [facility] 08/03/24 Aprn Relationship Specialty Start Date End Date Unallocated, Arjun Vo MD [facility] [place] [address] PCP - General Family [facility] 08/03/24 Goals (unrecognized section and content) Goals [...] THE PRIMARY CLINICAL RECORDS. [employer] [facility]. provides no warranty or guarantee of the accuracy or completeness of information in this document.
--- OUTSIDE RECORDS SUMMARY | 2025-05-25 08:00 | XMS_ITS | Encounter Summary ---
Author Organization [facility] Address [address] [place] [address] Care Team Providers Care Boiler Water Tester Name Role Phone Vaishali Zapata MD Primary Care Provider Bipin cheng Unallocated, Noms Provider Primary Care Provi krissy Encounter Details Date Type Department Care Team (Late st Contact Info) Description 06/28/2024 Abstract ARJUN PANG [address] [place] [address] Jose Rodriguez DO [address], [place] [address] Social History Tobacco Use Types Packs/Day Years [...] 10:30 AM EDT Routine ARJUN PANG [address] [place] [address] Jose Rodriguez DO [address], [facility] documented as of this encounter Visit Diagnoses Not on filedocumented in this encounter Care Teams Boiler Water Tester Relationship Specialty Start Date End Date Vaishali Zapata MD [address] [place] [address] PCP - General Family Medicine 02/04/23 08/02/24 Unallocated, Noms Provider, [address] [place] [address] PCP - General Family Medicine 08/03/24 documented as of this encounter
--- OUTSIDE RECORDS SUMMARY | 2025-05-25 08:00 | XMS_ITS | Patient Health Record ---
Author Organization [facility] in [place] Address [address] [place] [address] Care Team Providers Care Twisthand Name Role Phone Jennifer See Primary Care Provider Allergies No Known Allergies Results Component Value Reference Range Notes PREG (CG), URINE - IN OFFI CE Reviewed date:07/23/2024 08:22:00 AM Interpretation: Performing Lab: Notes/Report: PREG (UHCG), URINE - IN OFFICE + NEG - NEG Control Present + RUBELLA AB IGG Reviewed date:07/23/2024 08:22:00 AM Interpretation: Performing Lab: Notes/Report: [facility] , Rubella Antibodies, IgG 1.57 Immune > 0.99 index Non-immune <0.90 Equivocal 0.90 - 0.99 Performed at: [facility] Immune >0.99 [address] [place], [place] [id number] Education And Outreach Coordinator: Andrew Harris PhD, Phone: [phone] Performing Lab: see note [facility] HIV Ab/p24 Ag with Reflex Reviewed date:07/23/2024 08:22:00 AM Interpretation: Performing Lab: Notes/Report: [facility] , HIV Ab/p24 Ag Screen Non Reactive Non Reactive Education And Outreach Coordinator: Andrew Harris PhD, Phone: [phone] detected. There is no laboratory evidence of HIV infection. HIV-1/HIV-2 antibodies and HIV-1 p24 antigen were NOT HIV Negative Performed at: [facility] [address] [place], [place] [id number] Performing Lab: see note LC - [facility] Rapid Plasma Reagin, Quant Reviewed date:07/23/2024 08:22:00 AM Interpretation: Performing Lab: Notes/Report: [facility] , Rapid Plasma Reagin, Quant Non Reactive NonRea<1:1 titer Performed at: [facility] infection, a reflex cascade that includes both RPR and a treponema-specific assay should be utilized, such as Treponema pallidum (Syphilis) Screening [place] ([address]) or screening and diagnosis of syphilis. This test is Education And Outreach Coordinator: Andrew Harris PhD, Phone: [phone] Please Note: This test does not meet current guidelines for Rapid Plasma Reagin (RPR) Test With Reflex to Quantitative RPR and Confirmatory Treponema pallidum Antibodies (853734). [address] [place] [phone] intended for following treatment response in patients being treated for syphilis infection. To screen for syphilis Performing Lab: see note [facility] LB HCV Antibody RFX to Quant PC R Reviewed date:07/23/2024 08:22:00 AM Interpretation: Performing Lab: Notes/Report: [facility] , HCV Ab Non Reactive Non Reactive Interpretation: Comment . individual), or other evidence exists to indicate HCV infection. suspected (which may be delayed in an immunocompromised Not infected with HCV unless early or acute infection is Performing Lab: see note [facility] LB HBsAg Screen Reviewed date:07/23/2024 08:22:00 AM Interpretation: Performing Lab: Notes/Report: [facility] , HBsAg Screen Negative Negative Education And Outreach Coordinator: Andrew Harris PhD, Phone: [phone] [address] [place], [place] [id number] Performed at: [facility] Performing Lab: see note [facility] LB Box Test Reviewed date:07/23/2024 08:22:00 AM Interpretation: Performing Lab: Notes/Report: AMLIN BOX [facility] , BOX Test Sent Out UNITY BOX Test Reference Lab UNITY BOX Test Date Sent 07/21/24 Performing Lab: see note [facility] LB CBC AUTO DIFF Reviewed date:08/10/2024 08:58:56 AM Interpretation: Performing Lab: Notes/Report: [facility] , White Blood Count 8.9 [...] 3/uL Performing Lab: see note ML - [facility] PREG QUANT HCG Reviewed date:11/20/2024 01:38:35 PM Interpretation: Performing Lab: Notes/Report: [facility] Quantitative 6254 5-50 0.2-1 WEEK 10,000-100,000 2-3 MONTHS 500-10,000 3-4 WEEKS 100-5,000 2-3 WEEKS 15,000-200,000 6-8 WEEKS 10,000-100,000 5-6 WEEKS 50-500 1-2 WEEKS 1,000-50,000 4-5 WEEKS Performing Lab: see note ML - [facility] LB PREG QUANT HCG Reviewed date:11/22/2024 08:59:16 AM Interpretation: Performing Lab: Notes/Report: [facility] , HCG Quantitative 98599 5-50 0.2-1 WEEK 100-5,000 2-3 WEEKS 10,000-100,000 2-3 MONTHS 1,000-50,000 4-5 WEEKS 500-10,000 3-4 WEEKS 15,000-200,000 6-8 WEEKS 10,000-100,000 5-6 WEEKS 50-500 1-2 WEEKS Performing Lab: see note ML - [facility] LB CBC AUTO DIFF Reviewed date:01/07/2025 01:05:16 PM Interpretation: Performing Lab: Notes/Report: [facility] , White Blood Count 9.2 4.0-11.0 10 [...] Performing Lab: see note ML - [facility] LB DRUG SCREEN RAPID (URINE) Reviewed date:01/07/2025 01:05:16 PM Interpretation: Performing Lab: Notes/Report: [facility] , Cannabinoid Screen Urine NEGATIVE NEGATIVE Phencyclidine [...] Urine NEGATIVE NEGATIVE MTD (Methadone): 200 ng/mL FOLLOWS: OPI (Opiates): 100 ng/mL AMP (Amphetamine): 500 ng/mL TCA (Trycyclic Antidepressants): 300 ng/mL BUP (Buprenorphine): 10 ng/mL OXY (Oxycodone): 100 ng/mL BAR (Barbiturates): 200 ng/mL DRUG CLASS TEST SYSTEM CUT-OFF CONCENTRATIONS ARE PCP (Phencyclidine): 25 ng/mL BZO (Benzodiazepines): 150 ng/mL THC (Cannabinoids): 50 ng/mL mAMP (Methamphetamine): 500 ng/mL ALEXA (Cocaine): 150 ng/mL Performing Lab: see note ML - [facility] LB GLYCOHEMOGLOBIN A1C Reviewed date:01/07/2025 01:05:16 PM Interpretation: Performing Lab: Notes/Report: [facility] , Glycohemoglobin A1C 5.0 4.5-6.2 % > 7.0 ADA RECOMMENDED LIMIT 4.0 - 6.0 ADA THERAPEUTIC TARGET < 7.0 ACTION SUGGESTED Estimated Average Glucose 97 Performing Lab: see note - [facility] LB Urine Culture, Routine Reviewed date:01/07/2025 01:05:16 PM Interpretation: Performing Lab: Notes/Report: [facility] , Urine Culture, Routine See Below For Report Urine Culture, Routine Urine Culture, Routine Mixed urogenital tami Urine Culture, Routine Urine Culture, Routine 50,000-100,000 co lony forming units per mL Urine Culture, Routine Urine Culture, Routine Performed at: - [facility] [place] Urine Culture, Routine Urine Culture, Routine [address], [place] [id number] Urine Culture, Routine Urine Culture, Routine Education And Outreach Coordinator: Riky Harris PhD, Phone: [phone] Urine Culture, Routine Performing Lab: see note SEE REPORT - Paper Twister Tender Id information not found for OBX-specific broadcast producer legend LC - [facility] LB Box Test Reviewed date:01/07/2025 01:05:16 PM Interpretation: Performing Lab: Notes/Report: UN[facility]OX [facility] , BOX Test Sent Out UNITY BOX Test Reference Lab UNITY BOX Test Date Sent 01-05-25 Performing Lab: see note ML - [facility] LB IGP,Aptima HPV,Age Gdln Reviewed date:02/25/2025 03:13:18 PM Interpretation: Performing Lab: Notes/Report: SPATULA-ALONE ENDOCERVIX [facility] , Age Gdln ACOG Testing Note . Age Algo ACOG Yris... 21-29 Jenise Byrne MD, Clinician Provided Cytology Information L-Low Normal,H-High Normal,LL-Alert Low,HH-Alert High <-Panic Low,>-Panic High,A-Abnormal,AA-Cri tical Abnormal TESTS RESULT FLAG UNITS REF RANGE LAB Source.............End ocervix FLAG LEGEND: No. of containers..01 ThinPrep Vial Performed at: 01 =[facility] [address] [place] [address] IGP, rfx Aptima HPV ASCU Note . NEGATIVE FOR INTRAEPITHELIAL LESION OR MALIGNANCY. occur. Education And Outreach Coordinator: Jenise Byrne MD, Phone: [phone] <-Panic Low,>-Panic High,A-Abnormal,AA-Cri tical Abnormal should not be used as the sole means of detecting cervical Performed at: [facility] The Pap smear is a screening test designed to aid in the uterine cervix. It is not a diagnostic procedure and This liquid based ThinPrep(R) pap test was screened with cancer. Both false-positive and false-negative reports do Performed at: [facility] L-Low Normal,H-High Normal,LL-Alert Low,HH-Alert High Whitney Alvarez, Warp Tier (ASCP) Satisfactory for evaluation. Endocervical and/or squamous metaplastic Performed at: cells (endocervical component) are present. Note: Note 02 [facility] [address] [facility], [place] [id number] . 02 [address] [facility] [place] [address] Education And Outreach Coordinator: Jenise Byrne MD, Phone: [phone] Performed by: Test Methodology: Note 02 TESTS RESULT FLAG UNITS REF RANGE LAB The HPV DNA reflex criteria were not met with this specimen Specimen adequacy: 02 Jenise Byrne MD, FLAG LEGEND: detection of premalignant and malignant conditions of the result therefore, no HPV testing was performed. DIAGNOSIS: 02 the use of an image guided system. [address] [facility], [place] [id number] Performing Lab: see note - [facility] US OB cervical length Reviewed date:03/14/2025 10:39:54 AM Interpretation: Performing Lab: Notes/Report: Source Facility: [place] [address] Ultrasound Report Signed Patient: VIMAL FUNES MR#: [id number] : 2000 Acct:[id number] Age/Sex: 24 / F ADM Date: 03/08/25 Loc: US Attending Dr: Mackenzie Rodirguez D.O. Ordering Physician: Mackenzie Rodriguez D.O. Date of Service: 03/08/25 Procedure(s): US OB cervical length Accession Number(s): [id number] cc: JENNIFER SEE ; Mackenzie Rodriguez D.O. [place] [address] Patient Name: VIMAL FUNES MRN: [id number] date: 2000 Sex: F Assigned Patient Location: US Current Patient Location: US Accession/Order Number: [id number] Exam Date: 03/08/2025 20:31 Report Date: 03/08/2025 [...] Knapp M.D. 03/08/2025 8:36 PM Dictation Location[facility] Electronically authenticated by: [id number] Y Date: 03/08/2025 20:36 Dictated By: Shivam Knapp D.O. Signed By: 03/08/252037 DD/ 35 TD/TT: Telephone Triage Nurse: [place] [address] Ultrasound Report Signed Patient: VIMAL FUNES MR#: [id number] : 2000 Acct:[id number] Age/Sex: 24 / F ADM Date: 03/08/25 Loc: US Attending Dr: Mackenzie Rodriguez D.O. Ordering Physician: Mackenzie Rodriguez D.O. Date of Service: 03/08/25 Procedure(s): US OB cervical length Accession Number(s): [id number] cc: JENNIFER SEE ; Mackenzie Rodriguez D.O. [place] [address] Patient Name: VIMAL FUNES MRN: [id number] date: 2000 Sex: F Assigned Patient Location: US Current Patient Location: US Accession/Order Number: [id number] Exam Date: 03/08/2025 20:31 Report Date: 03/08/2025 [...] Knapp M.D. 03/08/2025 8:36 PM Dictation Location: [facility] Electronically authenticated by: [id number] Y Date: 03/08/2025 20:36 Dictated By: Shivam Knapp D.O. Signed By: 03/08/252037 DD/ 35 TD/TT: Telephone Triage Nurse: US OB anatomy Reviewed date:03/14/2025 10:39:54 AM Interpretation: Performing Lab: Notes/Report: Source Facility: [place] [address] Ultrasound Report Signed Patient: VIMAL FUNES MR#: [id number] : 2000 Acct:[id number] Age/Sex: 24 / F ADM Date: 03/08/25 Loc: US Attending Dr: Mackenzie Rodriguez D.O. Ordering Physician: Mackenzie Rodriguez D.O. Date of Service: 03/08/25 Procedure(s): US OB anatomy Accession Number(s): [id number] cc: JENNIFER SEE Corey D.O. [place] [address] Patient Name: VIMAL FUNES MRN: [id number] date: 2000 Sex: F Assigned Patient Location: US Current Patient Location: US Accession/Order Number: [id number] Exam Date: 03/08/2025 20:31 Report Date: 03/08/2025 [...] Knapp M.D. 03/08/2025 8:36 PM Dictation Location: [facility] Electronically authenticated by: [id number] Y Date: 03/08/2025 20:36 Dictated By: Shivam Knapp D.O. Signed By: 03/08/252037 DD/ 35 TD/TT: Telephone Triage Nurse: [place] [address] Ultrasound Report Signed Patient: VIMAL FUNES MR#: [id number] : 2000 Acct:[id number] Age/Sex: 24 / F ADM Date: 03/08/25 Loc: US Attending Dr: Mackenzie Rodriguez D.O. Ordering Physician: Mackenzie Rodriguez D.O. Date of Service: 03/08/25 Procedure(s): US OB anatomy Accession Number(s): [id number] cc: JENNIFER SEE ; Mackenzie Rodriguez D.O. [address] [address] Patient Name: VIMAL FUNES MRN: [id number] date: 2000 Sex: F Assigned Patient Location: US Current Patient Location: US Accession/Order Number: [id number] Exam Date: 03/08/2025 20:31 Report Date: 03/08/2025 [...] Knapp M.D. 03/08/2025 8:36 PM Dictation Location: [facility] Electronically authenticated by: [id number] Y Date: 03/08/2025 20:36 Dictated By: Shivam Knapp D.O. Signed By: 03/08/252037 DD/ 35 TD/TT: Telephone Triage Nurse: US OB incomplete anatomy Reviewed date:03/25/2025 09:01:39 AM Interpretation: Performing Lab: Notes/Report: Source Facility: [place] [address] [place] [address] Ultrasound Report Signed Patient: VIMAL FUNES MR#: [id number] : 2000 Acct:[id number] Age/Sex: 24 / F ADM Date: 03/23/25 Loc: US Attending Dr: Mackenzie Rodriguez D.O. Ordering Physician: Mackenzie Rodriguez D.O. Date of Service: 03/23/25 Procedure(s): US OB incomplete anatomy Accession Number(s): [id number] cc: JENNIFER SEE ; Mackenzie Rodriguez D.O. [place] [id number] Patient Name: VIMAL FUNES MRN: [id number] date: 2000 Sex: F Assigned Patient Location: US Current Patient Location: US Accession/Order Number: [id number] Exam Date: 03/25/2025 08:23 Report Date: 03/25/2025 [...] Brown M.D. 03/25/2025 8:25 AM Dictation Location: [place] [address] Electronically authenticated by: [id number] Y Date: 03/25/2025 08:25 Dictated By: Meghana Brown M.D. Signed By: 03/25/25826 DD/ 4 TD/TT: Telephone Triage Nurse: [place] [address] Ultrasound Report Signed Patient: VIMAL FUNES MR#: [id number] : 2000 Acct:[id number] Age/Sex: 24 / F ADM Date: 03/23/25 Loc: US Attending Dr: Mackenzie Rodriguez D.O. Ordering Physician: Mackenzie Rodriguez D.O. Date of Service: 03/23/25 Procedure(s): US OB incomplete anatomy Accession Number(s): [id number] cc: JENNIFER SEE ; Mackenzie Rodriguez D.O. [place] [id number] Patient Name: VIMAL FUNES MRN: [id number] date: 2000 Sex: F Assigned Patient Location: US Current Patient Location: US Accession/Order Number: [id number] Exam Date: 03/25/2025 08:23 Report Date: 03/25/2025 [...] Brown M.D. 03/25/2025 8:25 AM Dictation Location: [place] [address] Electronically authenticated by: [id number] Y Date: 03/25/2025 08:25 Dictated By: Meghana Brown M.D. Signed By: 03/25/25826 DD/ 4 TD/TT: Telephone Triage Nurse: [place] Reviewed date:05/06/2025 10:03:33 AM Interpretation: Performing Lab: Notes/Report: [facility] [place] , Blood Urea Nitrogen 8.0 7.0-18.0 mg/dL Performing Lab: see note ML - [facility] LB CBC AUTO DIFF Reviewed date:05/06/2025 10:03:33 AM Interpretation: Performing Lab: Notes/Report: [facility] [place] , White Blood Count 12.5 4.0-11.0 10 [...] 3/uL Performing Lab: see note ML - [facility] LB CREATININE Reviewed date:05/06/2025 10:03:33 AM Interpretation: Performing Lab: Notes/Report: [facility] [place] , Creatinine 0.37 0.55-1.02 mg/dL Estimated GFR ( Ashley >60 >=60 mL/min/1.73m 2 Estimated GFR (Non- Hortencia >60 >=60 mL/min/1.73m 2 Performing Lab: see note ML - [facility] LB LDH Reviewed date:05/06/2025 10:03:33 AM Interpretation: Performing Lab: Notes/Report: [facility] [place] , Lactate Dehydrogenase 163 81-234 U/L Performing Lab: see note - [facility] LB PTT Reviewed date:05/06/2025 10:03:33 AM Interpretation: Performing Lab: Notes/Report: [facility] [place] , Partial Thromboplastin Time 25.7 22.3-36.2 sec Performing Lab: see note ML - [facility] LB SGOT Reviewed date:05/06/2025 10:03:33 AM Interpretation: Performing Lab: Notes/Report: [facility] [place] , Aspartate Amino Transferase 23 15-37 U/L Performing Lab: see note ML - [facility] LB URIC ACID SERUM Reviewed date:05/06/2025 10:03:33 AM Interpretation: Performing Lab: Notes/Report: [facility] , Uric Acid 3.7 2.6-6.0 mg/dL Performing Lab: see note ML - [facility] LB Prothrombin Time INR Reviewed date:05/06/2025 10:03:33 AM Interpretation: Performing Lab: Notes/Report: [facility] [place] , Prothrombin Time 10.1 9.0-11.6 sec INR 0.95 2.5-3.5 RECURRENT THROMBOSIS 2.5-3.5 FOR PROSTHETIC HEART VALVE REPLACEMENT 2.0-3.0 CONDITIONS NOT LISTED BELOW DESIRED INR: Performing Lab: see note ML - [facility] US OB BPP w non-stress Reviewed date:05/06/2025 10:03:33 AM Interpretation: Performing Lab: Notes/Report: Source Facility: [place] [address] Ultrasound Report Signed Patient: VIMAL FUNES MR#: [id number] : 2000 Acct:[id number] Age/Sex: 25 / F ADM Date: 05/04/25 Loc: [facility] 250-[address]: Rossana Leach Ordering Physician: Rossana Leach Date of Service: 05/04/25 Procedure(s): US OB BPP w non-stress Accession Number(s): [id number] cc: JENNIFER Watkins [place] [address] Patient Name: VIMAL FUNES MRN: [id number] date: 2000 Sex: F Assigned Patient Location: [facility] Current Patient Location: [facility] Accession/Order Number: [id number] Exam Date: 05/04/2025 12:08 Report Date: 05/04/2025 12:09 At the request of: ROSSANA LEACH Procedure: US OB BPP w non-stress Biophysical profile. Reason for exam: Gestational diabetes COMPARISON: None TECHNIQUE: Transabdominal imaging of the gravid uterus was obtained. FINDINGS: The outside physical damage appraiser reports a BPP of 8 out of 8. DANYA is normal at 12.4 cm. heart rate 150 bpm. US/US OB BPP w non-stress IMPRESSION: BPP 8 out of 8. Impression dictated by: Bulmaro Arias Jr., D.O. 05/04/2025 12:09 PM Dictation Location: [place] [address] Electronically authenticated by: [id number] Y Date: 05/04/2025 12:09 Dictated By: Bulmaro Arias M.D. Signed By: 05/04/25 1212 DD/ 1209 TD/TT: Telephone Triage Nurse: [place] [address] Ultrasound Report Signed Patient: VIMAL FUNES MR#: [id number] : 2000 Acct:[id number] Age/Sex: 25 / F ADM Date: 05/04/25 Loc: [place] [address]- Attending Dr: Rossana Leach Ordering Physician: Rossana Leach Date of Service: 05/04/25 Procedure(s): US OB BPP w non-stress Accession Number(s): [id number] cc: JENNIFER Watkins [place] [address] Patient Name: VIMAL FUNES MRN: [id number] date: 2000 Sex: F Assigned Patient Location: [facility] Current Patient Location: [facility] Accession/Order Number: [id number] Exam Date: 05/04/2025 12:08 Report Date: 05/04/2025 12:09 At the request of: ROSSANA LEACH Procedure: US OB fet al BPP w non-stress Biophysical profile. Reason for exam: Gestational diabetes COMPARISON: None TECHNIQUE: Transabdominal imaging of the gravid uterus was obtained. FINDINGS: The outside physical damage appraiser reports a BPP of 8 out of 8. DANYA is normal at 12.4 cm. heart rate 150 bpm. US/US OB BPP w non-stress IMPRESSION: BPP 8 ou t of 8. Impression dictated by: Bulmaro Arias Jr., D.O. 05/04/2025 12:09 PM Dictation Location: [employer] Electronically authenticated by: [id number] Y Date: 05/04/2025 12:09 Dictated By: Bulmaro Arias M.D. Signed By: 05/04/25 1212 DD/ 1209 TD/TT: Telephone Triage Nurse: US OB growth Reviewed date:05/06/2025 10:03:33 AM Interpretation: Performing Lab: Notes/Report: Source Facility: [place] [address] Ultrasound Report Signed Patient: VIMAL FUNES MR#: [id number] : 2000 Acct:[id number] Age/Sex: 25 / F ADM Date: 05/04/25 Loc: [facility] 250-[address]: Rossana Leach Ordering Physician: Rossana Leach Date of Service: 05/04/25 Procedure(s): US OB growth Accession Number(s): [id number] cc: Rossana Leach; JENNIFER SEE [place] [id number] Patient Name: VIMAL FUNES MRN: [id number] date: 2000 Sex: F Assigned Patient Location: [facility] Current Patient Location: [facility] Accession/Order Number: [id number] Exam Date: 05/04/2025 12:06 Report Date: 05/04/2025 [...] Jr., D.O. 05/04/2025 12:08 PM Dictation Location: [employer] Electronically authenticated by: [id number] Y Date: 05/04/2025 12:08 Dictated By: Bulmaro Arias M.D. Signed By: 05/04/25 1211 DD/ 1208 TD/TT: Telephone Triage Nurse: [place] [address] Ultrasound Report Signed Patient: VIMAL FUNES MR#: [id number] : 2000 Acct:[id number] Age/Sex: 25 / F ADM Date: 05/04/25 Loc: [place] [address]-[address]: Rossana Leach Ordering Physician: Rossana Leach Date of Service: 05/04/25 Procedure(s): US OB growth Accession Number(s): [id number] cc: Rossana Leach; JENNIFER SEE [address] [address] Patient Name: VIMAL FUNES MRN: [id number] date: 2000 Sex: F Assigned Patient Location: [facility] Current Patient Location: [facility] Accession/Order Number: [id number] Exam Date: 05/04/2025 12:06 Report Date: 05/04/2025 [...] Jr., D.O. 05/04/2025 12:08 PM Dictation Location: [facility] Electronically authenticated by: [id number] Y Date: 05/04/2025 12:08 Dictated By: Bulmaro Arias M.D. Signed By: 05/04/25 1211 DD/ 1208 TD/TT: Telephone Triage Nurse: Total Protein 24 Hour Urine Reviewed date:05/07/2025 09:01:34 AM Interpretation: Performing Lab: Notes/Report: [facility] , Total Protein Urine Random <6.0 <=11.9 mg/dL Total Volume 24 Hour Urine 3700 Performing Lab: see note ML - [facility] US OB BPP w non-stress Reviewed date:05/13/2025 12:03:41 PM Interpretation: Performing Lab: Notes/Report: Source Facility: [place] [address] Ultrasound Report Signed Patient: VIMAL FUNES MR#: [id number] : 2000 Acct:[id number] Age/Sex: 25 / F ADM Date: 05/11/25 Loc: [facility] 253-[address]: Rossana Leach Ordering Physician: Rossana Leach Date of Service: 05/11/25 Procedure(s): US OB BPP w non-stress Accession Number(s): [id number] cc: Rossana Leach; JENNIFER SEE [place] [phone] Patient Name: VIMAL FUNES MRN: [id number] date: 2000 Sex: F Assigned Patient Location: [facility] Current Patient Location: [facility] Accession/Order Number: [id number] Exam Date: 05/11/2025 12:01 Report Date: 05/11/2025 12:02 At the request of: ROSSANA LEACH Procedure: US OB BPP w non-stress Biophysical profile. Reason for exam: Gestational diabetes COMPARISON: 05/04/2025 TECHNIQUE: Transabdominal imaging of the gravid uterus was obtained. FINDINGS: The outside physical damage appraiser reports a BPP of 8 out of 8. DANYA is normal at 11.9 cm. heart rate 138 bpm. US/US OB BPP w non-stress IMPRESSION: BPP 8 out of 8. Impression dictated by: Bulmaro Arias Jr., D.O. 05/11/2025 12:02 PM Dictation Location: [employer] Electronically authenticated by: [id number] Y Date: 05/11/2025 12:02 Dictated By: Bulmaro Arias M.D. Signed By: 05/11/25 1204 DD/ 01 TD/TT: Telephone Triage Nurse: [place] [address] Ultrasound Report Signed Patient: VIMAL FUNES MR#: [id number] : 2000 Acct:[id number] Age/Sex: 25 / F ADM Date: 05/11/25 Loc: [facility] 253-[address]: Rossana Leach Ordering Physician: Rossana Leach Date of Service: 05/11/25 Procedure(s): US OB BPP w non-stress Accession Number(s): [id number] cc: Rossana Leach; JENNIFER SEE [place] [phone] Patient Name: VIMAL FUNES MRN: [id number] date: 2000 Sex: F Assigned Patient Location: [facility] Current Patient Location: [facility] Accession/Order Number: [id number] Exam Date: 05/11/2025 12:01 Report Date: 05/11/2025 12:02 At the request of: ROSSANA LEACH Procedure: US OB fet al BPP w non-stress Biophysical profile. Reason for exam: Gestational diabetes COMPARISON: 05/04/2025 TECHNIQUE: Transabdominal imaging of the gravid uterus was obtained. FINDINGS: The outside physical damage appraiser reports a BPP of 8 out of 8. DANYA is normal at 11.9 cm. heart rate 138 bpm. US/US OB BPP w non-stress IMPRESSION: BPP 8 ou t of 8. Impression dictated by: Bulmaro Arias Jr., D.O. 05/11/2025 12:02 PM Dictation Location: [place] [address] Electronically authenticated by: [id number] Y Date: 05/11/2025 12:02 Dictated By: Bulmaro Arias M.D. Signed By: 05/11/25 1204 DD/ 1202 TD/TT: Telephone Triage Nurse: CBC AUTO DIFF Reviewed date:05/20/2025 11:23:08 AM Interpretation: Performing Lab: Notes/Report: [facility] [place] , White Blood Count 15.0 4.0-11.0 10 [...] Performing Lab: see note ML - [facility] LB CREATININE Reviewed date:05/20/2025 11:23:08 AM Interpretation: Performing Lab: Notes/Report: [facility] [place] , Creatinine 0.38 0.55-1.02 mg/dL Estimated GFR ( Ashley >60 >=60 mL/min/1.73m 2 Estimated GFR (Non- Hortencia >60 >=60 mL/min/1.73m 2 Performing Lab: see note ML - [facility] LB LDH Reviewed date:05/20/2025 11:23:08 AM Interpretation: Performing Lab: Notes/Report: [facility] [place] , Lactate Dehydrogenase 147 81-234 U/L Performing Lab: see note - [facility] LB PTT Reviewed date:05/20/2025 11:23:08 AM Interpretation: Performing Lab: Notes/Report: [facility] [place] , Partial Thromboplastin Time 25.6 22.3-36.2 sec Performing Lab: see note ML - [facility] LB SGOT Reviewed date:05/20/2025 11:23:08 AM Interpretation: Performing Lab: Notes/Report: [facility] [place] , Aspartate Amino Transferase 18 15-37 U/L Performing Lab: see note - [facility] LB URIC ACID SERUM Reviewed date:05/20/2025 11:23:08 AM Interpretation: Performing Lab: Notes/Report: [facility] [place] , Uric Acid 4.0 2.6-6.0 mg/dL Performing Lab: see note ML - [facility] LB Prothrombin Time INR Reviewed date:05/20/2025 11:23:08 AM Interpretation: Performing Lab: Notes/Report: [facility] [place] , Prothrombin Time 10.2 9.0-11.6 sec INR 0.96 2.5-3.5 RECURRENT THROMBOSIS 2.0-3.0 CONDITIONS NOT LISTED BELOW 2.5-3.5 FOR PROSTHETIC HEART VALVE REPLACEMENT DESIRED INR: Performing Lab: see note - [facility] US OB BPP w non-stress Reviewed date:05/20/2025 11:23:08 AM Interpretation: Performing Lab: Notes/Report: Source Facility: [facility] [place], [place] [address] Ultrasound Report Signed Patient: VIMAL FUNES MR#: [id number] : 2000 Acct:[id number] Age/Sex: 25 / F ADM Date: 05/18/25 Loc: US Attending Dr: Rossana Leach Ordering Physician: Rossana Leach Date of Service: 05/18/25 Procedure(s): US OB BPP w non-stress Accession Number(s): [id number] cc: Rossana Leach; JENNIFER SEE [place] [address] Patient Name: VIMAL FUNES MRN: [id number] date: 2000 Sex: F Assigned Patient Location: [facility] Current Patient Location: Accession/Order Number: [id number] Exam Date: 05/18/2025 11:16 Report Date: 05/18/2025 [...] Acharya M.D. 05/18/2025 5:08 PM Dictation Location: [place] [address] Electronically authenticated by: [id number] Y Date: 05/18/2025 17:08 Dictated By: Heriberto Acharya M.D. Signed By: 05/18/252016 DD/ 07 TD/TT: Telephone Triage Nurse: [place] [address] Ultrasound Report Signed Patient: VIMAL FUNES MR#: [id number] : 2000 Acct:[id number] Age/Sex: 25 / F ADM Date: 05/18/25 Loc: US Attending Dr: Rossana Leach Ordering Physician: Rossana Leach Date of Service: 05/18/25 Procedure(s): US OB BPP w non-stress Accession Number(s): [id number] cc: Rossana Leach; JENNIFER SEE [place] [address] Patient Name: VIMAL FUNES MRN: [id number] date: 2000 Sex: F Assigned Patient Location: [facility] Current Patient Location: Accession/Order Number: [id number] Exam Date: 05/18/2025 11:16 Report Date: 05/18/2025 [...] Acharya M.D. 05/18/2025 5:08 PM Dictation Location: [place] [address] Electronically authenticated by: [id number] Y Date: 05/18/2025 17:08 Dictated By: Heriberto Acharya M.D. Signed By: 05/18/252016 DD/ 07 TD/TT: Telephone Triage Nurse: Total Protein 24 Hour Urine Reviewed date:05/21/2025 08:48:02 AM Interpretation: Performing Lab: Notes/Report: [facility] [place] , Total Protein Urine Random 6.7 <=11.9 mg/dL Total Volume 24 Hour Urine 2900 Total Protein 24 Hour Urine 194.3 <=149.1 mg/24hr Performing Lab: see note ML - [facility] LB BUN Reviewed date:05/20/2025 11:23:08 AM Interpretation: Performing Lab: Notes/Report: [facility] [place] , Blood Urea Nitrogen 9.0 7.0-18.0 mg/dL Performing Lab: see note ML - [facility] LB Glucose Tolerance 3 Hour Reviewed date:05/06/2025 10:03:33 AM Interpretation: Performing Lab: Notes/Report: [facility] [place] , Glucose Tolerance 3 Hour GLU FAST 108H (<95) Col: 05/04/25 0723 GLU 2HR 186H (<155) Col: 05/04/25 0927 GLU 1HR 234H (<180) Col: 05/04/25 0826 GLU 3HR 133 (<140) Col: 05/04/25 1028 Performing Lab: see note ML - [facility] LB Glucose 1 Hour Reviewed date:04/29/2025 09:37:12 AM Interpretation: Performing Lab: Notes/Report: [facility] [place] , Glucose 1 Hour 171 <130 mg/dL Performing Lab: see note ML - [facility] LB CBC AUTO DIFF Reviewed date:04/29/2025 09:37:12 AM Interpretation: Performing Lab: Notes/Report: [facility] [place] , White Blood Count 12.5 4.0-11.0 10 [...] 0.00-0.03 10 3/uL Performing Lab: see note [facility] HBsAg Screen Reviewed date:01/07/2025 01:05:16 PM Interpretation: Performing Lab: Notes/Report: [facility] , HBsAg Screen Negative Negative Education And Outreach Coordinator: Andrew Harris PhD, Phone: [phone] Performed at: [address] [id number] Performing Lab: see note [facility] HCV Antibody RFX to Quant PC R Reviewed date:01/07/2025 01:05:16 PM Interpretation: Performing Lab: Notes/Report: [facility] , HCV Ab Non Reactive Non Reactive Interpretation: Comment . suspected (which may be delayed in an immunocompromised Performed at: [place] [address] Education And Outreach Coordinator: Andrew Harris PhD, Phone: [phone] infection. individual), or other evidence exists to indicate HCV Not infected with HCV unless early or acute infection is Performing Lab: see note [facility] Rapid Plasma Reagin, Quant Reviewed date:01/07/2025 01:05:16 PM Interpretation: Performing Lab: Notes/Report: [facility] , Rapid Plasma Reagin, Quant Non Reactive NonRea<1:1 titer treated for syphilis infection. To screen for syphilis Treponema pallidum (Syphilis) Screening [place] (848392) or Education And Outreach Coordinator: Andrew Harris PhD, Phone: [phone] treponema-specific assay should be utilized, such as RPR and Confirmatory Treponema pallidum Antibodies (106031). Rapid Plasma Reagin (RPR) Test With Reflex to Quantitative Please Note: This test does not meet current guidelines for Performed at: [address] [id number] infection, a reflex cascade that includes both RPR and a screening and diagnosis of syphilis. This test is intended for following treatment response in patients being Performing Lab: see note - [facility] LB HIV Ab/p24 Ag with Reflex Reviewed date:01/07/2025 01:05:16 PM Interpretation: Performing Lab: Notes/Report: [facility] , HIV Ab/p24 Ag Screen Non Reactive Non Reactive Performed at: [facility] HIV-1/HIV-2 antibodies and HIV-1 p24 antigen were NOT Education And Outreach Coordinator: Andrew Harris PhD, Phone: [phone] HIV Negative [address] [place] [phone] detected. There is no laboratory evidence of HIV infection. Performing Lab: see note [facility] LB Type and Screen Reviewed date:01/07/2025 01:05:16 PM Interpretation: Performing Lab: Notes/Report: [facility] , Blood Type A Positive Antibody Screen NEGATIVE RUBELLA AB IGG Reviewed date:01/07/2025 01:05:16 PM Interpretation: Performing Lab: Notes/Report: [facility] , Rubella Antibodies, IgG 1.57 Immune > 0.99 index Performed at: [facility] Immune >0.99 Equivocal 0.90 - 0.[address] [place] [phone] Non-immune <0.90 Education And Outreach Coordinator: Andrew Harris PhD, Phone: [phone] Performing Lab: see note [facility] PREG QUANT HCG Reviewed date:08/20/2024 11:36:34 AM Interpretation: Performing Lab: Notes/Report: [facility] [place] , HCG Quantitative 6 500-10,000 3-4 WEEKS 5-50 0.2-1 WEEK 15,000-200,000 6-8 WEEKS 10,000-100,000 2-3 MONTHS 50-500 1-2 WEEKS 1,000-50,000 4-5 WEEKS 100-5,000 2-3 WEEKS 10,000-100,000 5-6 WEEKS Performing Lab: see note - [facility] US OB transvaginal Reviewed date:08/10/2024 08:58:56 AM Interpretation: Performing Lab: Notes/Report: Source Facility: [place] [address] Ultrasound Report Signed Patient: VIMAL FUNES MR#: [id number] : 2000 Acct:[id number] Age/Sex: 24 / F ADM Date: 08/10/24 Loc: SURGOUT Attending Dr: Mackenzie Rodriguez D.O. Ordering Physician: Mackenzie Rodriguez D.O. Date of Service: 08/10/24 Procedure(s): US OB transvaginal Accession Number(s): [id number] cc: JENNIFER SEE ; Mackenzie Rodriguez D.O. The [place] [address] Patient Name: VIMAL FUNES MRN: [id number] date: 2000 Sex: F Assigned Patient Location: [facility] Current Patient Location: [facility] Accession/Order Number: [id number] Exam Date: 08/10/2024 08:10 Report Date: 08/10/2024 [...] M.D. Signed By: 08/10/2447 DD/ 3 TD/TT: Telephone Triage Nurse: [place] [address] Ultrasound Report Signed Patient: VIMAL FUNES MR#: [id number] : 2000 Acct:[id number] Age/Sex: 24 / F ADM Date: 08/10/24 Loc: SURGOUT Attending Dr: Mackenzie Rodriguez D.O. Ordering Physician: Mackenzie Rodriguez D.O. Date of Service: 08/10/24 Procedure(s): US OB transvaginal Accession Number(s): [id number] cc: JENNIFER SEE ; Mackenzie Rodriguez D.O. [place] [address] Patient Name: VIMAL FUNES MRN: [id number] date: 2000 Sex: F [facility] Current Patient Location: [facility] Accession/Order Number: [id number] Exam Date: 08:10 Report Date: 08/10/2024 08:44 [...] M.D. Signed By: 08/10/2447 DD/ 3 TD/TT: Telephone Triage Nurse: PREG QUANT HCG Reviewed date:08/10/2024 08:58:56 AM Interpretation: Performing Lab: Notes/Report: [facility] , HCG Quantitative 240 50-500 1-2 WEEKS 1,000-50,000 4-5 WEEKS 15,000-200,000 6-8 WEEKS 10,000-100,000 2-3 MONTHS 100-5,000 2-3 WEEKS 500-10,000 3-4 WEEKS 5-50 0.2-1 WEEK 10,000-100,000 5-6 WEEKS Performing Lab: see note ML - [facility] US OB transvaginal Reviewed date:08/03/2024 08:30:13 AM Interpretation: Performing Lab: Notes/Report: Source Facility: [place] [address] Ultrasound Report Signed Patient: VIMAL FUNES MR#: [id number] : 2000 Acct:[id number] Age/Sex: 24 / F ADM Date: 08/02/24 Loc: ER Attending Dr: Ordering Physician: Kishan Cosby Date of Service: 08/02/24 Procedure(s): US OB transvaginal Accession Number(s): [id number] cc: JENNIFER SEE ; Kishan Marker [place] [address] Patient Name: VIMAL FUNES MRN: [id number] date: 2000 Sex: F Assigned Patient Location: ER Current Patient Location: ER Accession/Order Number: [id number] Exam Date: 08/02/2024 19:17 Report Date: 08/02/2024 [...] M.D. Signed By: 08/02/242126 DD/ 23 TD/TT: Telephone Triage Nurse: [place] [address] Ultrasound Report Signed Patient: VIMAL FUNES MR#: [id number] : 2000 Acct:[id number] Age/Sex: 24 / F ADM Date: 08/02/24 Loc: ER Attending Dr: Ordering Physician: Kishan Cosby Date of Service: 08/02/24 Procedure(s): US OB transvaginal Accession Number(s): [id number] cc: JENNIFER SEE ; Kishan Cosby [place] [id number] Patient Name: VIMAL FUNES MRN: [id number] date: 2000 Sex: F Assigned Patient Location: ER Current Patient Location: ER Accession/Order Number: [id number] Exam Date: 19:17 Report Date: 08/02/2024 21:24 [...] M.D. Signed By: 08/02/242126 DD/ 23 TD/TT: Telephone Triage Nurse: PROF Oreilly(COMP METB) Reviewed date:08/03/2024 08:30:13 AM Interpretation: Performing Lab: Notes/Report: [facility] , Sodium 140 136-145 mmol/L Potassium 3.4 [...] Performing Lab: see note ML - [facility] LB PREG QUANT HCG Reviewed date:08/03/2024 08:30:13 AM Interpretation: Performing Lab: Notes/Report: [facility] , HCG Quantitative 1656 15,000-200,000 6-8 WEEKS 1,000-50,000 4-5 WEEKS 10,000-100,000 2-3 MONTHS 10,000-100,000 5-6 WEEKS 100-5,000 2-3 WEEKS 50-500 1-2 WEEKS 5-50 0.2-1 WEEK 500-10,000 3-4 WEEKS Performing Lab: see note ML - [facility] LB CBC AUTO DIFF Reviewed date:08/03/2024 08:30:13 AM Interpretation: Performing Lab: Notes/Report: [facility] , White Blood Count 11.1 4.0-11.0 10 [...] 3/uL Performing Lab: see note ML - [facility] LB Urine Culture, Routine Reviewed date:07/23/2024 08:22:00 AM Interpretation: Performing Lab: Notes/Report: [facility] , Urine Culture, Routine See Below For Report Urine Culture, Routine Urine Culture, Routine Mixed urogenital tami Urine Culture, Routine Urine Culture, Routine 10,000-25,000 col nan forming units per mL Urine Culture, Routine Urine Culture, Routine Performed at: - [facility] [place] Urine Culture, Routine Urine Culture, Routine [address] [place], [place] [id number] Urine Culture, Routine Urine Culture, Routine Education And Outreach Coordinator: Riky Harris PhD, Phone: [phone] Urine Culture, Routine Performing Lab: see note SEE REPORT - Paper Twister Tender Id information not found for OBX-specific broadcast producer legend LC - [facility] LB Type and Screen Reviewed date:07/23/2024 08:22:00 AM Interpretation: Performing Lab: Notes/Report: [facility] , Blood Type A Positive Antibody Screen NEGATIVE GLYCOHEMOGLOBIN A1C Reviewed date:07/23/2024 08:22:00 AM Interpretation: Performing Lab: Notes/Report: [facility] , Glycohemoglobin A1C 4.9 4.5-6.2 % > 7.0 ACTION SUGGESTED ADA RECOMMENDED LIMIT 4.0 - 6.0 ADA THERAPEUTIC TARGET < 7.0 Estimated Average Glucose 94 Performing Lab: see note ML - [facility] LB DRUG SCREEN RAPID (URINE) Reviewed date:07/23/2024 08:22:00 AM Interpretation: Performing Lab: Notes/Report: REEFLEX IF POSITIVE [facility] , Cannabinoid Screen Urine NEGATIVE NEGATIVE Phencyclidine [...] 25 ng/mL FOLLOWS: ALEXA (Cocaine): 150 ng/mL DRUG CLASS TEST SYSTEM CUT-OFF CONCENTRATIONS ARE BUP (Buprenorphine): 10 ng/mL BAR (Barbiturates): 200 ng/mL TCA (Trycyclic Antidepressants): 300 ng/mL AMP (Amphetamine): 500 ng/mL THC (Cannabinoids): 50 ng/mL OXY (Oxycodone): 100 ng/mL BZO (Benzodiazepines): 150 ng/mL OPI (Opiates): 100 ng/mL mAMP (Methamphetamine): 500 ng/mL Performing Lab: see note ML - [facility] LB CBC AUTO DIFF Reviewed date:07/23/2024 08:22:00 AM Interpretation: Performing Lab: Notes/Report: [facility] , White Blood Count 10.6 4.0-11.0 10 [...] Performing Lab: see note ML - [facility] LB Reason For Referral No Information Medications [...] 06/05/2024 Encounters Encounter Location Date Provider Diagnosis [facility] Medicine [address] [place] [address] 06/05/2024 Jennifer See Z33.1 and Wellness examination [...] ACCESS PPO PLUS LOCAL PLAN [address] [place] [address] [id number] Vimal Funes Self - patient is the insured [employer] [place] [employer] [address] [place] [address] [id number] Vimal Funes Self - patient is the insured Medical (General) History Medical History History ICD Code lead poisoning Surgical History Surgery Date(Month/Year) ear tubes
--- OUTSIDE RECORDS SUMMARY | 2025-05-25 08:00 | XMS_ITS | Encounter Summary ---
Author Organization [facility] Address [address] [place] [address] Care Team Providers Care Residential Installer Name Role Phone Unallocated, Noms Provider Primary Care Provi krissy Encounter Details Date Type Department Care Team (Late st Contact Info) Description 08/10/2024 Abstract ARJUN PANG [facility] [place] [phone] Jose Rodriguez DO [address], [place] [address] Social History Tobacco Use Types Packs/Day Years [...] 05/28/2025 10:30 AM EDT Routine [facility]JUN PANG [facility] [place] [address] Jose Rodriguez DO [address], [id number] documented as of this encounter Visit Diagnoses Not on filedocumented in this encounter Care Teams Residential Installer Relationship Specialty Start Date End Date Unallocated, Noms Provider, [address] [place] [address] PCP - General Family Medicine 08/03/24 documented as of this encounter
--- OUTSIDE RECORDS SUMMARY | 2025-05-25 08:00 | XMS_ITS | Encounter Summary ---
Author Organization [facility] Address [address] [place] [address] Care Team Providers Care High Court Justice Name Role Phone Unallocated, Noms Provider Primary Care Provi krissy Encounter Details Date Type Department Care Team (Late st Contact Info) Description 08/10/2024 Abstract ARJUN PANG [facility] [place] [phone] Jose Rodriguez DO [address], [place] [address] Social History Tobacco Use Types Packs/Day Years [...] 05/28/2025 10:30 AM EDT Routine ARJUN PANG [facility] [place] [address] Jose Rodriguez DO [address], [facility]11 documented as of this encounter Visit Diagnoses Not on filedocumented in this encounter Care Teams High Court Justice Relationship Specialty Start Date End Date Unallocated, Noms Provider, [address] [place] [address] PCP - General Family Medicine 08/03/24 documented as of this encounter
--- OUTSIDE RECORDS SUMMARY | 2025-05-25 08:00 | XMS_ITS | Encounter Summary ---
Author Organization [facility] Address [address] [place] [address] Care Team Providers Care Employment Clerk Name Role Phone Vaishali Zapata MD Primary Care Provider Bipin cheng Unallocated, Noms Provider Primary Care Provi krissy Encounter Details Date Type Department Care Team (Late st Contact Info) Description 06/29/2024 Abstract [facility]JUN PANG [address] [facility] [place] [address] Jose Rodriguez DO [address], [place] [address] Social History Tobacco Use Types Packs/Day Years [...] 10:30 AM EDT Routine ARJUN PANG [address] [place] [address] Jose Rodriguez DO [address], [facility] documented as of this encounter Visit Diagnoses Not on filedocumented in this encounter Care Teams Employment Clerk Relationship Specialty Start Date End Date Vaishali Zapata MD [address] [place] [address] PCP - General Family Medicine 02/04/23 08/02/24 Unallocated, Noms Provider, [address] [place] [address] PCP - General Family Medicine 08/03/24 documented as of this encounter
--- OUTSIDE RECORDS SUMMARY | 2025-05-25 08:00 | XMS_ITS | Encounter Summary ---
Author Organization [facility] Address [address] [place] [address] Care Team Providers Care Avionics System Engineer Name Role Phone Unallocated, Noms Provider Primary Care Provi krissy Encounter Details Date Type Department Care Team (Late st Contact Info) Description 08/10/2024 Clinisync Result Encounter [facility] External Department Unsolicited Mackenzie Rodriguez DO [address], [place] [phone] Social History Tobacco Use Types Packs/Day Years [...] [facility] [address] [place] [phone] Mackenzie Rodriguez DO [address] [place] [address] documented as of this encounter Procedures Procedure Name Priority Date/Time Associated Diagnosis Comments US OB TRANSVAGINAL 08/10/2024 8: 44 AM EST documented in this encounter Results * US OB TRANSVAGINAL (08/10/2024 8:44 AM EST) Anatomical Region Laterality Modality Other 08/10/2024 8:44 AM EST Narrative 08/10/2024 8:47 [place] [address] Ultrasound Report Signed Patient: AMBER PIZANO MR#: [id number] : 2000 Acct:[id number] Age/Sex: 24 / F ADM Date: 08/10/24 Loc: SURGOUT Attending Dr: Mackenzie Rodriguez D.O. Ordering Physician: Mackenzie Rodriguez D.O. Date of Service: 08/10/24 Procedure(s): US OB transvaginal Accession Number(s): [id number] cc: LUIS SEE ; Mackenzie Rodriguez D.O. The [place] [id number] Patient Name: AMBER PIZANO MRN: [id number] date: 2000 Sex: F Assigned Patient Location: [facility] Current Patient Location: [facility] Accession/Order Number: [id number] Exam Date: 08/10/2024 08:10 Report Date: 08/10/2024 [...] M.D. Signed By: 08/10/24846 DD/ 3 TD/TT: Chief Counsel: Procedure Note Radiology, Radiologist, MD - 08/10/2024 [place] [address] Ultrasound Report Signed Patient: AMBER PIZANO MMR#: [id number] : 2000Acct:[id number] Age/Sex: 24 / FADM Date: 08/10/24 Loc: SURGOUT Attending Dr: Mackenzie Rodriguez D.O. Ordering Physician: Mackenzie Rodriguez D.O. Date of Service: 08/10/24 Procedure(s): US OB transvaginal Accession Number(s): [id number] cc: LUIS SEE ; Mackenzie Rodriguez D.O. The [place] [id number] Patient Name: AMBER PIZANO MRN: [id number] date: 2000 Sex: F Assigned Patient Location: [facility] Current Patient Location: [facility] Accession/Order Number: [id number] Exam Date: 08/10/2024 08:10 Report Date: 08/10/2024 [...] Lavon Herrera M.D. Signed By:08/10/2447 DD/ TD/TT: Chief Counsel: us Mackenzie Michael DO [facility] Final Result documented in this encounter Visit Diagnoses Not on filedocumented in this encounter Care Teams Avionics System Engineer Relationship Specialty Start Date End Date Unallocated, Noms Provider, [address] [place] [address] PCP - General Family Medicine 08/03/24 documented as of this encounter
--- OUTSIDE RECORDS SUMMARY | 2025-05-25 08:00 | XMS_ITS | Encounter Summary ---
Author Organization [facility] Address [address] [place] [address] Care Team Providers Care Summer Camp Counselor Name Role Phone Unallocated, Noms Provider Primary Care Provi krissy Encounter Details Date Type Department Care Team (Late Contact Info) Description 03/28/2025 Abstract ARJUN PANG [facility] [place] [address] Jose Rodriguez DO [address], [facility] Social History Tobacco Use Types [...] EDT Routine NOMMay PANG [address] [place] [address] Jose Rodriguez DO [address] [place] [place] [address] documented as of this encounter Visit Diagnoses Not on filedocumented in this encounter Care Teams Summer Camp Counselor Relationship Specialty Start Date End Date Unallocated, Noms Provider, [place] [address] PCP - General Family Medicine 08/03/24 documented as of this encounter
--- OUTSIDE RECORDS SUMMARY | 2025-05-25 08:00 | XMS_ITS | Clinical Summary ---
Author Organization [facility] QuNano s tem Address [id number] [address] [place] [address] Care Team Providers Care Gear Shaver Set Up Operator Name Role Phone Unavailable Primary Care [...] Team Description 05/21/2025 Telephone Maternal- Medicine at [facility] [address] [place] [phone] Chante Muse LD 05/13/2025 1:30 PM EDT Support Visit Maternal- Medicine at [facility] [address] [place] [phone] Marjorie Rico, RN Xenia Rayo RD Gestational diabetes mellitus (GDM) in third trimester, gestational diabetes method of control unspecified 05/13/2025 Travel 05/10/2025 Abstract Maternal- Medicine at [facility] [address] [place] [phone] External, Scanning Provider from Last 3 Months [...] Info) Description 06/04/2025 1:00 PM EDT Appointment [facility] - Ultrasound [address] [place] [address] Jose Rodriguez R, DO [address] [place] [address] [place] [address] [place] [address] Health Maintenance Due Date Last Done Comments [...] ORDERABLES Final Resul t Performing Organization Address City/[facility] Co de Phone Number MANUALLY TRANSCRIBED RESULTS * 2nd hr Glucose Tolerance 100 gm load (05/04/2025) Glucose Tolerance Test 2 Hour 186 MANUALLY TRANSCRIBED RESULTS Blood Venous blood / Unknown us Not In System Ref Prov LAB BLOOD ORDERABLES Kayli l Result Performing Organization Address [facility] de Phone Number MANUALLY TRANSCRIBED RESULTS * Glucose tolerance, 1 hour (05/04/2025) Glucose Tolerance Test 1 Hour 234 MANUALLY TRANSCRIBED RESULTS Blood Venous blood / Unknown us Not In System Ref Prov LAB BLOOD ORDERABLES Kayli l Result Performing Organization Address City/[facility]/ZIP Co de Phone Number MANUALLY TRANSCRIBED RESULTS * Glucose tolerance, 3 hours (05/04/2025) Glucose Tolerance Test 3 Hour 133 MANUALLY TRANSCRIBED RESULTS Blood Venous blood / Unknown us Not In System Ref Prov LAB BLOOD ORDERABLES Kayli l Result Performing Organization Address City/[facility] Co de Phone Number MANUALLY TRANSCRIBED [...] TRANSCRIBED RESULTS from Last 3 Months Insurance [employer]
--- OUTSIDE RECORDS SUMMARY | 2025-05-25 08:00 | XMS_ITS | Encounter Summary ---
Author Organization [facility] Address [address] [place] [address] Care Team Providers Care Parboiler Name Role Phone Vaishali Chaidez MD Primary Care Provider Bipin cheng Unallocated, Noms Provider Primary Care Provi krissy Encounter Details Date Type Department Care Team (Late st Contact Info) Description 06/29/2024 Clinisync Result Encounter [facility] External Department Unsolicited Mackenzie Rodriguez, DO [address] [place], [place] [id number] Social History Tobacco Use Types Packs/Day Years [...] Description 05/28/2025 10:30 AM EDT Routine [facility] [place] [facility] [address] [place] [phone] Mackenzie Rodriguez DO [address] [place] [address] documented as of this encounter Procedures Procedure Name Priority Date/Time Associated Diagnosis Comments US OB TRANSVAGINAL 06/29/2024 9: 11 AM EDT documented in this encounter Results * US OB TRANSVAGINAL (06/29/2024 9:11 AM EDT) Anatomical Region Laterality Modality Other 06/29/2024 9:11 AM EDT Narrative 06/29/2024 9:14 [place] [address] Ultrasound Report Signed Patient: Vimal Pizano MR#: [id number] : 2000 Acct:[id number] Age/Sex: 24 / F ADM Date: 06/29/24 Loc: [facility] Attending Dr: Mackenzie Rodriguez D.O. Ordering Physician: Mackenzie Rodriguez D.O. Date of Service: 06/29/24 Procedure(s): US OB transvaginal Accession Number(s): [id number] cc: Mackenzie oRdriguez D.O.; VAISHALI CHAIDEZ [place] [address] Patient Name: VIMAL PIZANO MRN: [id number] date: 2000 Sex: F Assigned Patient Location: [facility] Current Patient Location: [facility] Accession/Order Number: [id number] Exam Date: 06/29/2024 08:37 Report Date: 06/29/2024 [...] M.D. Signed By: 06/29/24913 DD/ 0 TD/TT: Staff Appraiser: Procedure Note Radiology, Radiologist, MD - 06/29/2024 [place] [address] Ultrasound Report Signed Patient: Vimal Pizano MMR#: [id number] : 2000Acct:[id number] Age/Sex: 24 / FADM Date: 06/29/24 Loc: [facility] Attending Dr: Mackenzie Rodriguez D.O. Ordering Physician: Mackenzie Rodriguez D.O. Date of Service: 06/29/24 Procedure(s): US OB transvaginal Accession Number(s): [id number] cc: Mackenzie Rodriguez D.O.; VAISHALI CHAIDEZ [place] [address] Patient Name: VIMAL PIZANO MRN: [id number] date: 2000 Sex: F Assigned Patient Location: [facility] Current Patient Location: [facility] Accession/Order Number: [id number] Exam Date: 06/29/2024 08:37 Report Date: 06/29/2024 [...] Herrera M.D. Signed By:06/29/24913 DD/ 0 TD/TT: Staff Appraiser: us Mackenzie Michael DO [facility] Final Result documented in this encounter Visit Diagnoses Not on filedocumented in this encounter Care Teams Parboiler Relationship Specialty Start Date End Date Vaishali Chaidez MD [address] [place] [address] PCP - General Family Medicine 02/04/23 08/02/24 Unallocated, Noms Provider, [address] [place] [address] PCP - General Family Medicine 08/03/24 documented as of this encounter
--- OUTSIDE RECORDS SUMMARY | 2025-05-25 08:00 | XMS_ITS | Encounter Summary ---
Author Organization [facility] Address [address] [place] [address] Care Team Providers Care Care Transition Manager Name Role Phone Unallocated, Noms Provider Primary Care Provi krissy Encounter Details Date Type Department Care Team (Late st Contact Info) Description 05/20/2025 Clinisync Result Encounter [facility] External Department Unsolicited Jose Rodriguez DO [address] [place] [address] Social History Tobacco Use Types Packs/Day [...] [facility] [address] [place] [address] Jose Rodriguez DO [address] [place] [address] documented as of this encounter Procedures Procedure Name Priority Date/Time Associated Diagnosis Comments [facility] TOTAL PROTEIN 24 HOUR URINE Routine 05/20/2025 7:00 AM EDT documented in this encounter Results * (ABNORMAL) [facility] TOTAL PROTEIN 24 HOUR URINE (05/20/2025 7:00 AM EDT) TOTAL PROTEIN URINE RANDOM 6.7 <=11.9 mg/dL [facility] TOTAL VOLUME 24 HOUR URINE 2,900 mL/24hr TB[facility] TOTAL PROTEIN 24 HOUR URINE 194.3(H) <=149.1 mg/24hr [facility] 05/20/2025 7:00 AM EDT 05/20/2025 5:37 PM EDT Narrative [facility] - 05/20/2025 7:25 PM EDT us Jose Michael DO [facility] Final [facility] documented in this encounter Visit Diagnoses Not on filedocumented in this encounter Care Teams Care Transition Manager Relationship Specialty Start Date End Date Unallocated, Noms Provider, [address] [place] [address] PCP - General Family Medicine 08/03/24 documented as of this encounter
--- OUTSIDE RECORDS SUMMARY | 2025-05-25 08:01 | XMS_ITS | Encounter Summary ---
Author Organization [facility] Address [address] [place] [address] Care Team Providers Care Corner Block Cutter Name Role Phone Unallocated, Noms Provider Primary Care Provi krissy Encounter Details Date Type Department Care Team (Late Contact Info) Description 05/14/2025 Bamboo flowsheet [facility] [address] [employer] [place] [phone] Jose Rodriguez DO [address] [place], [place] [address]Tal [place], [facility] Social History Tobacco Use Types [...] EDT Routine [facility] [address] [place] [address] Jose Rodriguez DO [address] [place], [place] [address] [place] [address] documented as of this encounter Visit Diagnoses Not on filedocumented in this encounter Care Teams Corner Block Cutter Relationship Specialty Start Date End Date Unallocated, Noms Provider, [place] [address] PCP - General Family Medicine 08/03/24 documented as of this encounter
--- OUTSIDE RECORDS SUMMARY | 2025-05-25 08:01 | XMS_ITS | Encounter Summary ---
Author Organization [facility] Address [address] [place] [address] Care Team Providers Care Pulp Mill Supervisor Name Role Phone Unallocated, Noms Provider Primary Care Provi krissy Encounter Details Date Type Department Care Team (Late st Contact Info) Description 03/06/2025 Orders Only ARJUN PANG [address] [place] [address] Kavitha Almanza MA [...] [address] Jose Rodriguez DO [address] [place], [place] [phone] documented as of this encounter Procedures Procedure Name Priority Date/Time Associated Diagnosis Comments PAP SMEAR Routine 02/20/2025 12:00 AM EDT documented in this encounter Results * Pap Smear (02/20/2025 12:00 AM EDT) Swab Cervical swab / Unknown us [facility] ORDERABLES Final Re sult EXTERNAL LAB documented in this encounter Visit Diagnoses Not on filedocumented in this encounter Care Teams Pulp Mill Supervisor Relationship Specialty Start Date End Date Unallocated, Noms Provider, [address] [place] [address] PCP - General Family Medicine 08/03/24 documented as of this encounter
[2025-05-25 08:04] VITALS: BP 142/85; PULSE 81
== END 2025-05-25 08:54 | disposition home or self-care (01) ==
LOC: US 07:58 → FBC 08:00
PROVIDERS: PCP Nurse Practitioner Family; Visit Provider Physician Assistant
DX: O24.419 Gestational diabetes mellitus in pregnancy, unspecified control (principal); Z3A.31 31 weeks gestation of pregnancy
CPT/HCPCS: 76818

== ENCOUNTER 2025-05-29 17:00 | Outpatient (OUT) | payer BC, OTHER, SELFPAY ==
[2025-05-29 17:15] VITALS: BP 131/74; PULSE 72
== END 2025-05-29 17:40 | disposition home or self-care (01) ==
LOC: FBCO 17:00 → FBC 17:10
PROVIDERS: PCP Nurse Practitioner Family; Visit Provider Obstetrics & Gynecology
DX: O24.419 Gestational diabetes mellitus in pregnancy, unspecified control (principal)
CPT/HCPCS: 59025

== ENCOUNTER 2025-06-01 10:52 | Outpatient (OUT) | payer BC, OTHER, SELFPAY ==
--- OUTSIDE RECORDS SUMMARY | 2024-06-05 04:30 | XMS_ITS ---
Author Organization [facility] in [place] Address [address] [place] [address] Care Team Providers Care Crown Ironer Name Role Phone Jennifer Butts Primary Care Provider Allergies No Known Allergies Results Component Value Reference Range Notes PREG ([facility]), URINE - IN OFFI CE Reviewed date:07/23/2024 08:22:00 AM Interpretation: Performing Lab: Notes/Report: PREG ([facility]), URINE - IN OFFICE + NEG - NEG Control Present + REASON FOR VISIT new patient, no pcp in over 5 years, patient is currently Medications Medication SIG (Take, Route, Fr equency, Duration) Notes Start Date End Date Status 28-0.8 MG 1 tablet Orally Once a day Active Social History Tobacco Use: Social History Observation Description Date Details (start date - stop date) Former Smoker NA - NA Tobacco Control (Standard) Question Answer Notes Tobacco use: Former smoker AUDIT-C (Standard) Question Answer Notes Did you have a drink containing alcohol in the p ast year? No Points 0 Interpretation Negative Vital Signs Weight 137.6 lbs 06/05/2024 Height 63 in 06/05/2024 Blood pressure systolic 112 mm Hg 06/05/20 24 Blood pressure diastolic 70 mm Hg 024 BMI 24.37 kg/m2 06/05/2024 Encounters Encounter Location Date Provider Diagnosis [facility] [place] [address] [place] [address] 06/05/2024 Jennifer Butts Z33.1 and Wellness examination Z00.00 Assessments Encounter Date Diagnosis (ICD Code) Assessment Notes Treatment Notes Treatment Clinical Notes Section Notes 06/05/2024 (ICD-10 - Z33.1) 06/05/2024 Wellness examination (ICD-10 - Z00.00) ROS done exam done medical hx reviewed here to establish no acute concerns fu Michael, Plan Of Treatment Treatment Notes Assessment Notes Wellness examination ROS done exam done medical hx reviewed here to establish no acute concerns fu Michael, Next Appt Details Follow Up: 1 Year,prnJose n: Progress Notes * Amber PIZANO MDOB: [birth year] (24 yo F)Acc No.[id number]:06/05/2024 New Patient Patient: Amber MADERA Provider: Lashawn Butts ([facility]), VEST BUSHELER :2000 A ge:24 Y S ex:Female Date:06/05/2024 Address:[address] [place] [address] Check In:08:08 AM ESTCheck O ut:08:44 AM EST Subjective: * Chief Complaints: * 1 . New patient, no pcp in over 5 years, patient is currently . * HPI: D epression Screening: PHQ-2 (2015 Edition) L ittle interest or pleasure in doing things??Not at all F eeling down, depressed, or hopeless? 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 * ROS: G eneral/Constitutional: Fever d enies. H eadache d enies. W eight loss?denies. O phthalmologic: Discharge d enies. E ye Pain d enies. I tching and redness d enies. E NT: Nasal discharge d enies. N sina congestion d enies.?Sore throat d enies. C ardiovascular: Chest tightness/ heavy pressure d enies. R apid heart rate d enies. S welling of extremities d enies. C hest pain d enies. ? R espiratory: Productive cough d enies. C hest pain d enies. C ough d enies. S hortness of breath d enies. W heezing d enies. ? G astrointestinal: Abdominal pain d enies. C onstipation d enies. D ecreased appetite d enies. D iarrhea d enies. N ausea d enies. V omiting?denies. G enitourinary: Urinary incontinence d enies. P ainful urination d enies. M usculoskeletal: Back pain d enies. N cheli pain d enies. M uscle aches d enies. S kin: Rash d enies. S kin lesion(s) d enies. ? p regnancy. * Active Problem List ?Problem List has not been verified* Medical History: L ead poisoning. * Surgical History: e ar tubes . * Family History: F ather: alive, diagnosed with Unspecified polyarthropathy or polyarthritis, pelvic region and thigh. M other: alive. B rother(s): alive. S ister(s): alive. 1 brother(s) , 1 sister(s) . 1 daughter(s) . . * Social History: T obacco Use: T obacco Control (Standard) T obacco use: F ormer smoker D rug/Alcohol: A BERE-C (Standard) D id you have a drink containing alcohol in the past year? N o P oints 0 I nterpretation N egative * Medications: T aking ( Vit-Fe Fumarate-FA) 28-0.8 MG Tablet 1 tablet Orally Once a day , Medication List reviewed and reconciled with the patient * Allergies: N .K.D.A. Objective: * Vitals: W t:137.6lbs, Ht: 63 in, BP:112/70mm Hg, BMI:24.37Index, Ht-cm: 160.02 cm, Wt-k.41 kg. * Examination: G eneral Examinations: GENERAL APPEARANCE: a lert and oriented, i n no acute distress. EYES: c onjunctiva normal, sclera non-icteric. EARS: e xternal auditory canals are patent. Tympanic membranes are pearly briscoe and mobile. NOSE: n ormal external appearance. THROAT: n ormal. LUNGS: c lear to auscultation bilaterally. CARDIO: r egular rate and rhythm, S1, S2 normal. ABDOMEN: s oft, nontender. MUSCULOSKELETAL G ait and station normal. SKIN: w arm and dry. Assessment: * Assessment: 1. W ellness examination - Z00.00 (Primary) 2 . P regnant - Z33.1 Plan: * Treatment: 2. P regnant L AB: PREG ([facility]), URINE - IN OFFICE (Collection Date & Time - 06/05/2024) * Labs: * L ab: PREG ([facility]), URINE - IN OFFICE (Collection Date & Time - 06/05/2024) Value Reference Range P REG ([facility]), URINE - IN OFFICE + NEG - NEG * C ontrol Present + * Procedure Codes: 8 1025 URINE TEST * Follow Up: 1 Year,prn * * Sign off status: Completed Visit Status: C HK (Check Out) true * Provider: Lashawn Butts ([facility]), VEST BUSHELER Date: 0 06/05/2024 Generated for Yolisi ng/Famariig/eTransmitting on: 0 06/01/2025 10:54 AM EDT History and Physical Notes * HPI (History of Present Illness) Category Sub-Category Detail Notes Category Not es General OBGYN Michael , 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 Tympanic membranes are pearly briscoe and mobile NOSE: normal external appe arance THROAT: normal CARDIO: regular rate and rhy thm, S1, S2 normal LUNGS: clear to auscultatio n bilaterally ABDOMEN: soft, nontender SKIN: warm and dry BACK: MUSCULOSKELETAL: Gait and station nor mal LYMPH NODES:
--- OUTSIDE RECORDS SUMMARY | 2025-05-22 14:40 | XMS_ITS | Encounter Summary ---
Author Organization [facility] Address [address] [place] [address] Care Team Providers Care Wet Wheeler Name Role Phone Unallocated, Noms Provider Primary Care Provi krissy Reason for Visit * Reason Comments Routine Visit Encounter Details Date Type Department Care Team (Late st Contact Info) Description 05/22/2025 2:40 PM EDT Routine ARJUN Morataya OBGYN [address] [place] [place] [address] Jose Rodriguez DO [address] [facility] [address] Josué Morataya, [facility]11 Third trimester ([facility]); 31 weeks gestation of ([facility]) Social History Tobacco Use Types Packs/Day [...] this encounter Progress Notes * Meghana Felder, SALESPERSON [employer] - 05/22/2025 2:40 PM EDT Reason for Appointment: Patient ID: Amber Funes is a 25 y.o. female who presents for Routine Visit Patient presents today for Return OB appointment. MEDICATIONS Current Outpatient Medications Medication Instructions Alcohol Swabs (Alcohol Prep Pad) 70 % pads 1 Pad, Topical, Daily, Use four times daily to check FSBS. Blood Glucose Monitoring Suppl (CleanSlate Glucometer) w/Device kit 1 kit, Does not [...] nursing note reviewed. Exam conducted with a electrical assembler present. Vitals: Estimated body mass index is 31.49 kg/m?? as calculated from the following: Height as of 01/06/23: 5' 3 . Weight as of this encounter: 177 lb 12 oz. BP: (!) 138/92 Patient's last menstrual period was 10/15/2024 (exact date). ASSESSMENT & PLAN ICD-10-CM 1. Third trimester ([facility]) Z34.93 POCT urinalysis dipstick manually resulted 2. 31 weeks gestation of ([facility]) Z3A.31 Return OB: Patient presents today for a routine obstetrics appointment. Patient is currently 31w2d . Patient states she is doing well but has complaints of being tired due to current . Patient has verbalizes frequent movement. labor precautions was discussed/given and patient was instructed to perform kick counts three times a day. Reviewed 24 hour urine protein. Pt calling in sugars to [facility]. Orders Placed This Encounter Procedures POCT [...] PM EDT Routine ARJUN Morataya OBGYN [address] [place] [address] Rossana Ramos PA [address] [facility] [place] [address] documented as of this encounter Procedures Procedure Name Priority Date/Time Associated Diagnosis Comments POCT URINALYSIS DIPSTICK Routine 05/22/2025 3:12 PM EDT Third trimester ([facility]) documented in this encounter Results * POCT [...] this encounter Visit Diagnoses Diagnosis Third trimester ([facility]) state, incidental 31 weeks gestation of ([facility]) documented in this encounter Care Teams Wet Wheeler Relationship Specialty Start Date End Date Unallocated, Noms Provider[place] [address] PCP - General Family Medicine 08/03/24 documented as of this encounter
--- OUTSIDE RECORDS SUMMARY | 2025-05-28 10:30 | XMS_ITS | Encounter Summary ---
Author Organization [facility] Address [address] [place] [address] Care Team Providers Care Laser Beam Cutter Name Role Phone Unallocated, Noms Provider Primary Care Provi krissy Reason for Visit * Reason Comments Routine Visit Encounter Details Date Type Department Care Team (Late st Contact Info) Description 05/28/2025 10:30 AM EDT Routine [facility] [place] [facility] [address] [facility] [place] [address] Jose Rodriguez DO [address] [facility] [address] Josué [place], [facility] Third trimester ([facility]); 32 weeks gestation of ([facility]); Gestational diabetes mellitus (GDM), antepartum, gestational diabetes method of control unspecified ([facility]); induced hypertension, antepartum ([facility]) Social History Tobacco Use Types [...] to check FSBS. Blood Glucose Monitoring Suppl (D-Provade Glucometer) w/Device kit 1 kit, Does not [...] ([facility]) 05/28/2025 Gestational diabetes mellitus (GDM), antepartum ([facility]) 05/28/2025 Resolved Ambulatory Problems Diagnosis Date Noted No Resolved Ambulatory Problems Past Medical History: Diagnosis Date Anemia Gestational diabetes ([facility]) History of blood transfusion Lead poisoning Miscarriage ([facility]) Nonsmoker Post depression HISTORY PAST MEDICAL HISTORY SOCIAL HISTORY Past Medical History: Diagnosis Date Anemia Gestational diabetes ([facility]) History of blood transfusion Lead poisoning Miscarriage ([facility]) Nonsmoker Post depression /anxiety Social [...] nursing note reviewed. Exam conducted with a business strategist present. Vitals: Estimated body mass index is 32.06 kg/m?? as calculated from the following: Height as of 01/06/23: 5' 3 . Weight as of this encounter: 181 lb. BP: 136/80 Patient's last menstrual period was 10/15/2024 (exact date). ASSESSMENT & PLAN ICD-10-CM 1. Third trimester ([facility]) Z34.93 POCT urinalysis dipstick manually resulted 2. 32 weeks gestation of ([facility]) Z3A.32 3. Gestational diabetes mellitus (GDM), antepartum, gestational diabetes method of control unspecified ([facility]) O24.419 4. induced hypertension, antepartum ([facility]) O13.9 Return OB: Patient presents today for [...] [address] [facility] [place] [address] Rossana Ramos PA [address] [facility] [place] [address] documented as of this encounter Procedures Procedure Name Priority Date/Time Associated Diagnosis Comments POCT URINALYSIS DIPSTICK Routine 05/28/2025 11:00 AM EDT Third trimester ([facility]) documented in this encounter Results * POCT [...] this encounter Visit Diagnoses Diagnosis Third trimester ([facility]) state, incidental 32 weeks gestation of ([facility]) Gestational diabetes mellitus (GDM), antepartum, gestational diabetes method of control unspecified ([facility]) induced hypertension, antepartum ([facility]) Transient hypertension of , antepartum documented in this encounter Care Teams Laser Beam Cutter Relationship Specialty Start Date End Date Unallocated, Noms Provider, [address] [place] [address] PCP - General Family Medicine 08/03/24 documented as of this encounter
--- NOTE | 2025-06-01 10:54 | US_ITS ---
The [address] [address] Patient Name: VIMAL PIZANO MRN: [id number] date: 2000 Sex: F Assigned Patient Location: US Current Patient Location: Accession/Order Number: [id number] Exam Date: 06/01/2025 10:59 Report Date: 06/01/2025 12:03 At the request of: COLLIN LEACH Procedure: US OB BPP w non-stress Biophysical profile. Reason for exam: Gestational diabetes COMPARISON: 05/25/2025 TECHNIQUE: Transabdominal imaging of the gravid uterus was obtained. FINDINGS: The blueprint cutter reports a BPP of 8 out of 8. DANYA is normal at 11.0 cm. Cardiac activity was visualized by the blueprint cutter per tech note. No heart rate was documented. US/US OB BPP w non-stress IMPRESSION: BPP 8 out of 8. Impression dictated by: Bulmaro Arias Jr., D.O. 06/01/2025 12:03 PM Dictation Location: [place] Electronically authenticated by: [id number] Y Date: 06/01/2025 12:03
--- OUTSIDE RECORDS SUMMARY | 2025-06-01 10:55 | XMS_ITS | Encounter Summary ---
Author Organization [facility] Address [address] [place] [address] Care Team Providers Care Natural Foods Clerk Name Role Phone Unallocated, Noms Provider Primary Care Provi krissy Encounter Details Date Type Department Care Team (Late Contact Info) Description 03/28/2025 Abstract [facility] [address] [place] [address] Jose Rodriguez DO [address] [facility] [address] Josué [place], [facility]11 Social History Tobacco Use Types Packs/Day [...] Department Care Team (Late Contact Info) Description 06/12/2025 3:00 PM EDT Routine [facility] [address] [place] [address] Rossana Ramos PA [address] [place] [address] [place] [address] documented as of this encounter Visit Diagnoses Not on filedocumented in this encounter Care Teams Natural Foods Clerk Relationship Specialty Start Date End Date Unallocated, Noms Provider, [address] [place] [address] PCP - General Family Medicine 08/03/24 documented as of this encounter
--- OUTSIDE RECORDS SUMMARY | 2025-06-01 10:55 | XMS_ITS | Encounter Summary ---
Author Organization [facility] tem Address [id number] [address] [place] [address] Care Team Providers Care Medical Screener Name Role Phone Unavailable Primary Care Provider Unavailabl e Encounter Details Date Type Department Care Team (Late Contact Info) Description 05/31/2025 Abstract Maternal- Medicine at [facility] [address] [facility] [place] [address] External, Scanning Provider Social History Tobacco Use [...] Contact Info) Description 06/04/2025 1:00 PM EDT Hospital Encounter [facility] [place] - Ultrasound [address] [place] [phone] Jose Rodriguez, DO [address] [facility] [address] [place] [place] [address] documented as of this encounter Procedures Procedure Name Priority Date/Time Associated Diagnosis Comments HIV 1&2 AB/AG SCREEN (P24 AG) Routine 01/05/2025 RUBELLA IGG IMMUNE STATUS Routine 01/05/2025 DRUG SCREEN, URINE Routine 01/05/2025 HEPATITIS B SURFACE ANTIGEN Routine 01/05/2025 CBC (NO DIFF) Routine 01/05/2025 TYPE AND SCREEN Routine 01/05/2025 documented in this encounter Results * Hepatitis B surface antigen (01/05/2025) Hepatitis B Surface Antigen Negative MANUALLY TRANSCRIBED RESULTS Blood Venous blood / Unknown us Not In System Ref Prov LAB BLOOD ORDERABLES Kayli l Result Performing Organization Address City/[facility] Co de Phone Number MANUALLY TRANSCRIBED RESULTS * HIV 1&2 AB/AG Screen (P24 AG) (01/05/2025) HIV 1&2 AB/AG Non Reactive MAN UALLY TRANSCRIBED RESULTS Blood Venous blood / Unknown us Not In System Ref Prov LAB BLOOD ORDERABLES Kayli l Result Performing Organization Address City/[facility]/ZIP Co de Phone Number MANUALLY TRANSCRIBED RESULTS * Type and screen (01/05/2025) Abo/Rh(D) A Positive MANUALLY TRANSCRIBED RESULTS Antibody Screen Negative MANUALLY TRANSCRIBED RESULTS Blood Venous blood / Unknown us Not In System Ref Prov BLOOD BANK TEST ORDERABLE S Final Result MANUALLY TRANSCRIBED RESULTS * Rubella IGG immune status (01/05/2025) Rubella immune IgG 1.57 MANUALLY TRANSCRIBED RESULTS Blood Venous blood / Unknown us Not In System Ref Prov LAB BLOOD ORDERABLES Kayli l Result Performing Organization Address City/[facility] Co de Phone Number MANUALLY TRANSCRIBED RESULTS * Drug Screen, Urine (01/05/2025) Ecstasy Negative MANUALLY TRANSCRIBED RESULTS Methadone Negative MANUALLY TRANSCRIBED RESULTS Opiates Negative MANUALLY TRANSCRIBED RESULTS Amphetamine/Methamp hetamine Negative MANUALLY TRANSCRIBED RESULTS Cocaine Metabolite Negative M ANUALLY TRANSCRIBED RESULTS Phencyclidine Negative MANUAL LY TRANSCRIBED RESULTS Thc Marijuana, Urine Negative MANUALLY TRANSCRIBED RESULTS Barbiturates Negative MANUALL Y TRANSCRIBED RESULTS Benzodiazepines Negarive MANU ALLY TRANSCRIBED RESULTS Urine us Not In System Ref Prov URINE ORDERABLES Final Re sult Performing Organization Address [facility] Co de Phone Number MANUALLY TRANSCRIBED RESULTS * CBC without diff (01/05/2025) Hemoglobin 14.7 MANUALLY TRANSCRIBED RESULTS Hematocrit 42.5 MANUALLY TRANSCRIBED RESULTS Rbc Mcv (Fl) By Automated Count 91.4 MANUALLY TRANSCRIBED RESULTS Blood Venous blood / Unknown us Not In System Ref Prov LAB BLOOD ORDERABLES Kayli l Result Performing Organization Address [facility] Co de Phone Number MANUALLY TRANSCRIBED RESULTS documented in this encounter Visit Diagnoses Not on filedocumented in this encounter
--- OUTSIDE RECORDS SUMMARY | 2025-06-01 10:55 | XMS_ITS | Encounter Summary ---
Author Organization [facility] Address [address] [place] [address] Care Team Providers Care Drilling Field Specialist Name Role Phone Unallocated, Noms Provider Primary Care Provi krissy Encounter Details Date Type Department Care Team (Late st Contact Info) Description 08/10/2024 Abstract ARJUN PANG [address] [facility] [place] [address] Jose Rodriguez DO [address] [facility] [address] Josué [place]ataya, [facility] [...] Description 06/12/2025 3:00 PM EDT Routine ARJUN PANG [address] [facility] [place] [address] Rossana Ramos PA [address] [facility] [address] [place], [facility] documented as of this encounter Visit Diagnoses Not on filedocumented in this encounter Care Teams Drilling Field Specialist Relationship Specialty Start Date End Date Unallocated, Noms Provider, [place] [address] PCP - General Family Medicine 08/03/24 documented as of this encounter
--- OUTSIDE RECORDS SUMMARY | 2025-06-01 10:55 | XMS_ITS | Encounter Summary ---
Author Organization [facility] Address [address] [place] [address] Care Team Providers Care Golf Ball Marker Name Role Phone Unallocated, Noms Provider Primary Care Provi krissy Encounter Details Date Type Department Care Team (Late st Contact Info) Description 05/20/2025 Clinisync Result Encounter [facility] External Department Unsolicited Jose Rodriguez DO [address] [facility] [address] Josué Morataya, [facility]11 Social History Tobacco Use Types [...] PM EDT Routine [facility] Rafia OBGYN [address] [phone] Rossana Ramos PA [address] [facility] [place] [address] documented as of this encounter Procedures [...] us Jose Michael DO [facility] Final Result [facility] documented in this encounter Visit Diagnoses Not on filedocumented in this encounter Care Teams Golf Ball Marker Relationship Specialty Start Date End Date Unallocated, Noms Provider, [address] [place] [address] PCP - General Family Medicine 08/03/24 documented as of this encounter
--- OUTSIDE RECORDS SUMMARY | 2025-06-01 10:55 | XMS_ITS | Encounter Summary ---
Author Organization [facility] [employer] [facility] tem Address [id number] [address] [place] [address] Care Team Providers Care Cancer Registry Manager Name Role Phone Unavailable Primary Care Provider Unavailabl e Encounter Details Date Type Department Care Team ([facility] st Contact Info) Description 05/28/2025 Telephone Maternal- Medicine at [facility] [address] [place] [address] Chante Muse LD [address] [place] [address] Social History Tobacco Use Types Packs/Day Years [...] * Telephone Encounter - ILEANA Willams - 05/28/2025 1:52 PM EDT Called regarding blood sugar logs from 05/20/25-05/26/25 but received voicemail. Amber had 4 elevated fasting blood sugars and 2 elevated blood sugars after breakfast. Most recent fasting blood sugarshave improved and she had three in target. We did talk last week about changing her evening snack. Will send a [employer] message. documented in this encounter Plan of Treatment Upcoming Encounters Date Type Department Care Team (Late st Contact Info) Description 06/04/2025 1:00 PM EDT Hospital Encounter [facility] - Ultrasound [address] [place] [address] Jose Rodriguez, [address] [place] [address] documented as of this encounter Visit Diagnoses Not on filedocumented in this encounter
--- OUTSIDE RECORDS SUMMARY | 2025-06-01 10:55 | XMS_ITS | Encounter Summary ---
Author Organization [facility] Address [address] [place] [address] Care Team Providers Care Machine Pack Assembler Name Role Phone Unallocated, Noms Provider Primary Care Provi krissy Encounter Details Date Type Department Care Team (Late st Contact Info) Description 05/07/2025 Results Follow-Up ARJUN Morataya OBGYKeegan [address] [facility] [address] [address] Glenna Butler LPN [address] [place] [address] ALL CBC WITH AUTO DIFF, [...] 06/12/2025 3:00 PM EDT Routine ARJUN Morataya OBCHICHO [address] [facility] [place] [address] Rossana Ramos PA [address] [facility] [place] [address] documented as of this encounter Visit Diagnoses Not on filedocumented in this encounter Care Teams Machine Pack Assembler Relationship Specialty Start Date End Date Unallocated, Arjun Vo MD [address] [place] [address] PCP - General Family Medicine 08/03/24 documented as of this encounter
--- OUTSIDE RECORDS SUMMARY | 2025-06-01 10:55 | XMS_ITS | Encounter Summary ---
Author Organization [facility] Address [address] [place] [address] Care Team Providers Care Clinic Mgr Name Role Phone Unallocated, Noms Provider Primary Care Provi krissy Encounter Details Date Type Department Care Team (Late st Contact Info) Description 05/25/2025 Clinisync Result Encounter [facility] External Department Unsolicited Collin Leach PA [address] [facility] [address] [place], [place] [address] Social History Tobacco Use Types Packs/Day Years [...] 06/12/2025 3:00 PM EDT Routine [facility] Rafia OBCHICHO [address] [facility] [place] [phone] Collin Leach PA [address] [facility] [address] [place], [facility]11 [phone] (work) documented as of this encounter Procedures Procedure Name Priority Date/Time Associated Diagnosis Comments US OB BPP W NON-STRESS 05/25/2025 11:13 AM EDT documented in this encounter Results * US OB BPP W NON-STRESS (05/25/2025 11:13 AM EDT) Anatomical Region Laterality Modality Other 05/25/2025 11:1 3 AM EDT Narrative 05/25/2025 11:16 [place] [address] Ultrasound Report Signed Patient: VIMAL PIZANO MR#: [id number] : 2000 Acct:[id number] Age/Sex: 25 / F ADM Date: 05/25/25 Loc: US Attending Dr: Collin Leach Ordering Physician: Collin Leach Date of Service: 05/25/25 Procedure(s): US OB BPP w non-stress Accession Number(s): [id number] cc: Collin Leach; LUIS SEE [address] [address] Patient Name: VIMAL PIZANO MRN: [id number] date: 2000 Sex: F Assigned Patient Location: [facility] Current Patient Location: Accession/Order Number: [id number] Exam Date: 05/25/2025 08:21 Report Date: 05/25/2025 11:13 At the request of: COLLIN LEACH Procedure: US OB BPP w non-stress US OB BPP w non-stress 05/25/2025 8:43 AM SIGNS AND SYMPTOMS: GESTATIONAL DIABETES MELLITUS O24.419 PROTOCOL: Transabdominal sonographic imaging of the gravid uterus COMPARISON: None FINDINGS: heart rate: 126 bpm. Amniotic fluid index: 10.63 cm. The deepest vertical pocket measures 4.78 cm. Estimated gestational age: 31 weeks 5 days Biophysical profile: breathing movements: 2/2 Gross body movements: 2/2 tone: 2/2 Amniotic fluid volume: 2/2 US/US OB BPP w non-stress IMPRESSION: Biophysical profile: 05/03 Impression dictated by: Heriberto Acharya M.D. 05/25/2025 11:13 AM Dictation Location: [place] [address] Electronically authenticated by: [id number] Y Date: 05/25/2025 11:13 Dictated By: Heriberto Acharya M.D. Signed By: 05/25/25 1116 DD/ 1113 TD/TT: Window Shade Cloth Sewer: Procedure Note Radiology, Radiologist, MD - 05/25/2025 [place] [address] Ultrasound Report Signed Patient: VIMAL PIZANO MMR#: [id number] : 2000Acct:[id number] Age/Sex: 25 / FADM Date: 05/25/25 Loc: US Attending Dr: Collin Leach Ordering Physician: Collin Leach Date of Service: 05/25/25 Procedure(s): US OB BPP w non-stress Accession Number(s): [id number] cc: Collin Leach; LUIS SEE [address] [address] Patient Name: VIMAL PIZANO MRN: [id number] date: 2000 Sex: F Assigned Patient Location: [facility] Current Patient Location: Accession/Order Number: [id number] Exam Date: 05/25/2025 08:21 Report Date: 05/25/2025 11:13 At the request of: COLLIN LEACH Procedure: US OB BPP w non-stress US OB BPP w non-stress 05/25/2025 8:43 AM SIGNS AND SYMPTOMS: GESTATIONAL DIABETES MELLITUS O24.419 PROTOCOL: Transabdominal sonographic imaging of the gravid uterus COMPARISON: None FINDINGS: heart rate: 126 bpm. Amniotic fluid index: 10.63 cm. The deepest vertical pocket measures 4.78cm. Estimated gestational age: 31 weeks 5 days Biophysical profile: breathing movements: 2/2 Gross body movements: 2/2 tone: 2/2 Amniotic fluid volume: 2/2 US/US OB BPP w non-stress IMPRESSION: Biophysical profile: 05/03 Impression dictated by: Heriberto Acharya M.D. 05/25/2025 11:13 AM Dictation Location: [place] [address] Electronically authenticated by: [id number] Y Date: 1:13 Dictated By: Heriberto Acharya M.D. Signed By:05/25/25 1116 DD/ 1113 TD/TT: Window Shade Cloth Sewer: Collin BISWAS [facility] Final Result documented in this encounter Visit Diagnoses Not on filedocumented in this encounter Care Teams Clinic Mgr Relationship Specialty Start Date End Date Unallocated, Noms Provider, [address] [place] [address] PCP - General Family Medicine 08/03/24 documented as of this encounter
--- OUTSIDE RECORDS SUMMARY | 2025-06-01 10:55 | XMS_ITS | Clinical Summary ---
Author Organization [facility] [employer] [facility] tem Address [id number] [address] [place] [address] Care Team Providers Care Trap Operator Name Role Phone Unavailable Primary Care [...] Encounters Date Type Department Care Team Description 05/31/2025 Orders Only Maternal- Medicine at [facility] [address] [place] [address] Ref Prov, Not In System 05/31/2025 Abstract Maternal- Medicine at [facility] [address] [place] [address] External, Scanning Provider 05/28/2025 Telephone Maternal- Medicine at [facility] [address] [place] [address] Chante Muse LD 05/21/2025 Telephone Maternal- Medicine at [facility] [address] [place] [address] Chante Muse LD 05/13/2025 1:30 PM EDT Support Visit Maternal- Medicine at [facility] [address] [place] [address] Marjorie Rico RN Xenia Rayo, ALEC Gestational diabetes mellitus (GDM) in third trimester, gestational diabetes method of control unspecified 05/13/2025 Travel 05/10/2025 Abstract Maternal- Medicine at [facility] [address] [place] [address] External, Scanning Provider from Last 3 Months [...] Description 06/04/2025 1:00 PM EDT Hospital Encounter [facility] - Ultrasound [address] [place] [address] Jose Rodriguez R, [address] [place]é [place] [address] Health Maintenance Due Date Last Done Comments Chlamydia Screening 2001 Depression Screening 2013 Tobacco Screening 2013 Adult [...] ORDERABLES Final Resul t MANUALLY TRANSCRIBED RESULTS * 2nd hr Glucose [...] ORDERABLES Kayli l Result Performing Organization Address City/[facility] Co de Phone Number MANUALLY TRANSCRIBED RESULTS * Glucose tolerance, 3 hours (05/04/2025) Glucose Tolerance Test 3 Hour 133 MANUALLY TRANSCRIBED RESULTS Blood Venous blood / Unknown us Not In System Ref Prov LAB BLOOD ORDERABLES Kayli l Result Performing Organization Address City/[facility] Co de Phone Number MANUALLY TRANSCRIBED RESULTS * Glucose, tolerance fasting (05/04/2025) Glucose Tolerance Test Fasting 108 MANUALLY TRANSCRIBED RESULTS Blood Venous blood / Unknown us Not In System Ref Prov LAB BLOOD ORDERABLES Kayli l Result Performing Organization Address [facility] de Phone Number MANUALLY TRANSCRIBED RESULTS * Glucose 1h post 50g load (04/27/2025) Glucose, 1 hr PP 50GM dose 171 MANUALLY TRANSCRIBED RESULTS Blood Venous blood / Unknown us Not In System Ref Prov LAB BLOOD ORDERABLES Kayli l Result Performing Organization Address [facility] de Phone Number MANUALLY TRANSCRIBED RESULTS from Last 3 Months Insurance [employer]
--- OUTSIDE RECORDS SUMMARY | 2025-06-01 10:55 | XMS_ITS | Encounter Summary ---
Author Organization [facility] Address [address] [place] [address] Care Team Providers Care Center Lead Consultant Name Role Phone Unallocated, Noms Provider Primary Care Provi krissy Encounter Details Date Type Department Care Team (Late Contact Info) Description 05/22/2025 Bamboo flowsheet ARJUN PANG [address] [place] [address] Jose Rodriguez DO [employer] [address]ué Morataya, [facility] Social History Tobacco Use Types Packs/Day Years [...] 3:00 PM EDT Routine NOMMay PANG [address] [place] [address] Rossana Ramos PA [address] [place] [address] [place] [address] documented as of this encounter Visit Diagnoses Not on filedocumented in this encounter Care Teams Center Lead Consultant Relationship Specialty Start Date End Date Unallocated, Noms Provider, [place] [address] PCP - General Family Medicine 08/03/24 documented as of this encounter
--- OUTSIDE RECORDS SUMMARY | 2025-06-01 10:55 | XMS_ITS | Encounter Summary ---
Author Organization [facility] Address [address] [place] [address] Care Team Providers Care Product Applications Scientist Name Role Phone Unallocated, Noms Provider Primary Care Provi krissy Encounter Details Date Type Department Care Team (Late st Contact Info) Description 05/18/2025 Clinisync Result Encounter [facility] External Department Unsolicited Collin Leach PA [address] [facility] [address] [place], [place] [address] Social History Tobacco Use Types Packs/Day Years [...] PM EDT Routine [facility] Rafia OBCHICHO [address] [facility] [place] [address] Collin Leach PA [address] [facility] [address] [place], [facility]11 [phone] (work) documented as of this encounter Procedures Procedure Name Priority Date/Time Associated Diagnosis Comments US OB BPP W NON-STRESS 05/18/2025 5:08 PM EDT documented in this encounter Results * US OB BPP W NON-STRESS (05/18/2025 5:08 PM EDT) Anatomical Region Laterality Modality Other 05/18/2025 5:08 PM EDT Narrative 05/18/2025 8:17 [place] [address] Ultrasound Report Signed Patient: VIMAL PIZANO MR#: [id number] : 2000 Acct:[id number] Age/Sex: 25 / F ADM Date: 05/18/25 Loc: US Attending Dr: Collin Leach Ordering Physician: Collin Leach Date of Service: 05/18/25 Procedure(s): US OB BPP w non-stress Accession Number(s): [id number] cc: Collin Leach; LUIS SEE [address] [address] Patient Name: VIMAL PIZANO MRN: [id number] date: 2000 Sex: F Assigned Patient Location: [facility] Current Patient Location: Accession/Order Number: [id number] Exam Date: 05/18/2025 11:16 Report Date: 05/18/2025 [...] Acharya M.D. 05/18/2025 5:08 PM Dictation Location: [place] [address] Electronically authenticated by: [id number] Y Date: 05/18/2025 17:08 Dictated By: Heriberto Acharya M.D. Signed By: 05/18/252016 DD/ 07 TD/TT: Automotive Diagnostic Technician: Procedure Note Radiology, Radiologist, MD - 05/18/2025 [place] [address] Ultrasound Report Signed Patient: VIMAL PIZANO MMR#: [id number] : 2000Acct:[id number] Age/Sex: 25 / FADM Date: 05/18/25 Loc: US Attending Dr: Collin Leach Ordering Physician: Collin Leach Date of Service: 05/18/25 Procedure(s): US OB BPP w non-stress Accession Number(s): [id number] cc: Collin Leach; LUIS SEE [place] [id number] Patient Name: VIMAL PIZANO MRN: [id number] date: 2000 Sex: F Assigned Patient Location: [facility] Current Patient Location: Accession/Order Number: [id number] Exam Date: 05/18/2025 11:16 Report Date: 05/18/2025 [...] Acharya M.D. 05/18/2025 5:08 PM Dictation Location: [place] [address] Electronically authenticated by: [id number] Y Date: 7:08 Dictated By: Heriberto Acharya M.D. Signed By:05/18/252016 DD/ 170 TD/TT: Automotive Diagnostic Technician: Collin BISWAS [facility] Final Result documented in this encounter Visit Diagnoses Not on filedocumented in this encounter Care Teams Product Applications Scientist Relationship Specialty Start Date End Date Unallocated, Noms Provider, [address] [place] [address] PCP - General Family Medicine 08/03/24 documented as of this encounter
--- OUTSIDE RECORDS SUMMARY | 2025-06-01 10:55 | XMS_ITS | Encounter Summary ---
Author Organization [facility] Address [address] [place] [address] Care Team Providers Care Cloth Packer Name Role Phone Unallocated, Noms Provider Primary Care Provi krissy Encounter Details Date Type Department Care Team (Late st Contact Info) Description 08/10/2024 Clinisync Result Encounter [facility] External Department Unsolicited Mackenzie Rodriguez DO [address] [facility] [address] Josué [place]ataya, [facility]11 Social History Tobacco Use Types [...] PM EDT Routine [facility] Rafia OBGYN [address] [facility] [place] [address] Rossana Ramos PA [address] [facility] [place] [address] documented as of this encounter Procedures Procedure Name Priority Date/Time Associated Diagnosis Comments US OB TRANSVAGINAL 08/10/2024 8: 44 AM EST documented in this encounter Results * US OB TRANSVAGINAL (08/10/2024 8:44 AM EST) Anatomical Region Laterality Modality Other 08/10/2024 8:44 AM EST Narrative 08/10/2024 8:47 [place] [address] Ultrasound Report Signed Patient: VIMAL PIZANO MR#: [id number] : 2000 Acct:[id number] Age/Sex: 24 / F ADM Date: 08/10/24 Loc: SURGOUT Attending Dr: Mackenzie Rodriguez D.O. Ordering Physician: Mackenzie Rodriguez D.O. Date of Service: 08/10/24 Procedure(s): US OB transvaginal Accession Number(s): [id number] cc: LUIS SEE ; Mackenzie Rodriguez D.O. The [place] [id number] Patient Name: VIMAL PIZANO MRN: [id number] date: 2000 Sex: F Assigned Patient Location: [facility] Current Patient Location: [facility] Accession/Order Number: [id number] Exam Date: 08/10/2024 08:10 Report Date: 08/10/2024 [...] 08:44 Dictated By: Estefany Herrera M.D. Signed By: 08/10/2447 DD/ 3 TD/TT: Manager Credit Risk: Procedure Note Radiology, Radiologist, MD - 08/10/2024 [place] [address] Ultrasound Report Signed Patient: VIMAL PIZANO MMR#: [id number] : 2000Acct:[id number] Age/Sex: 24 / FADM Date: 08/10/24 Loc: SURGOUT Attending Dr: Mackenzie Rodriguez D.O. Ordering Physician: Mackenzie Rodriguez D.O. Date of Service: 08/10/24 Procedure(s): US OB transvaginal Accession Number(s): [id number] cc: LUIS SEE ; Mackenzie Rodriguez D.O. The [place] [id number] Patient Name: VIMAL PIZANO MRN: [id number] date: 2000 Sex: F Assigned Patient Location: [facility] Current Patient Location: [facility] Accession/Order Number: [id number] Exam Date: 08/10/2024 08:10 Report Date: 08/10/2024 [...] Estefany Herrera M.D. Signed By:08/10/2447 DD/ TD/TT: Manager Credit Risk: us Mackenzie Michael DO [facility] Final Result documented in this encounter Visit Diagnoses Not on filedocumented in this encounter Care Teams Cloth Packer Relationship Specialty Start Date End Date Unallocated, Noms Provider, [address] [place] [address] PCP - General Family Medicine 08/03/24 documented as of this encounter
--- OUTSIDE RECORDS SUMMARY | 2025-06-01 10:55 | XMS_ITS | Encounter Summary ---
Author Organization [facility] Address [address] [place] [address] Care Team Providers Care Analytics Analyst Name Role Phone Vaishali Chaidez MD Primary Care Provider Bipin cheng Unallocated, [facility] Provider Primary Care Provi krissy Encounter Details Date Type Department Care Team (Late st Contact Info) Description 06/29/2024 Clinisync Result Encounter [facility] External Department Unsolicited Mackenzie Rodriguez DO [address] [place], [facility] Social History Tobacco Use Types Packs/Day [...] Description 06/12/2025 3:00 PM EDT Routine [facility] [place] [facility] [address] [place] [id number] Rossana Ramos PA [address] [place], [facility] documented as of this encounter Procedures Procedure Name Priority Date/Time Associated Diagnosis Comments US OB TRANSVAGINAL 06/29/2024 9: 11 AM EDT documented in this encounter Results * US OB TRANSVAGINAL (06/29/2024 9:11 AM EDT) Anatomical Region Laterality Modality Other 06/29/2024 9:11 AM EDT Narrative 06/29/2024 9:14 [place] [address] Ultrasound Report Signed Patient: Vimal Pizano MR#: [id number] : 2000 Acct:[id number] Age/Sex: 24 / F ADM Date: 06/29/24 Loc: [facility] Attending Dr: Mackenzie Rodriguez D.O. Ordering Physician: Mackenzie Rodriguez D.O. Date of Service: 06/29/24 Procedure(s): US OB transvaginal Accession Number(s): [id number] cc: Mackenzie Rodriguez D.O.; VAISHALI CHAIDEZ [place] [id number] Patient Name: VIMAL PIZANO MRN: [id number] date: 2000 Sex: F Assigned Patient Location: [facility] Current Patient Location: [facility] Accession/Order Number: [id number] Exam Date: 06/29/2024 08:37 Report Date: 06/29/2024 [...] M.D. Signed By: 06/29/24913 DD/ 0 TD/TT: Forging Die Sinker: Procedure Note Radiology, Radiologist, MD - 06/29/2024 [place] [address] Ultrasound Report Signed Patient: Vimal Pizano MMR#: [id number] : 2000Acct:[id number] Age/Sex: 24 / FADM Date: 06/29/24 Loc: [facility] Attending Dr: Mackenzie Rodriguez D.O. Ordering Physician: Mackenzie Rodriguez D.O. Date of Service: 06/29/24 Procedure(s): US OB transvaginal Accession Number(s): [id number] cc: Mackenzie Rodriguez D.O.; VAISHALI CHAIDEZ [place] [id number] Patient Name: VIMAL PIZANO MRN: [id number] date: 2000 Sex: F Assigned Patient Location: [facility] Current Patient Location: [facility] Accession/Order Number: [id number] Exam Date: 06/29/2024 08:37 Report Date: 06/29/2024 [...] Herrera M.D. Signed By:06/29/24913 DD/ 0 TD/TT: Forging Die Sinker: us Mackenzie Michael DO [facility] Final Result documented in this encounter Visit Diagnoses Not on filedocumented in this encounter Care Teams Analytics Analyst Relationship Specialty Start Date End Date Vaishali Chaidez MD [address] [place] [address] PCP - General Family Medicine 02/04/23 08/02/24 Unallocated, [facility] Provider, [address] [place] [address] PCP - General Family Medicine 08/03/24 documented as of this encounter
--- OUTSIDE RECORDS SUMMARY | 2025-06-01 10:55 | XMS_ITS | Patient Health Record ---
Author Organization The [facility] in [place] Address [address] [place] [address] Care Team Providers Care Vehicle Check In Clerk Name Role Phone Jennifer See Primary Care Provider Allergies No Known Allergies Results Component Value Reference Range Notes PREG ([facility]), URINE - IN OFFI CE Reviewed date:07/23/2024 08:22:00 AM Interpretation: Performing Lab: Notes/Report: PREG ([facility]), URINE - IN OFFICE + NEG - NEG Control Present + CBC AUTO DIFF Reviewed date:07/23/2024 08:22:00 AM Interpretation: Performing Lab: Notes/Report: [facility] , White Blood Count 10.6 4.0-11.0 10 [...] 3/uL Performing Lab: see note ML - [facility] LB DRUG SCREEN RAPID (URINE) Reviewed date:07/23/2024 08:22:00 AM Interpretation: Performing Lab: Notes/Report: REEFLEX IF POSITIVE [facility] , Cannabinoid Screen Urine NEGATIVE NEGATIVE Phencyclidine [...] ng/mL Performing Lab: see note ML - [facility] LB GLYCOHEMOGLOBIN A1C Reviewed date:07/23/2024 08:22:00 AM Interpretation: Performing Lab: Notes/Report: [facility] , Glycohemoglobin A1C 4.9 4.5-6.2 % > 7.0 ACTION SUGGESTED ADA RECOMMENDED LIMIT 4.0 - 6.0 ADA THERAPEUTIC TARGET < 7.0 Estimated Average Glucose 94 Performing Lab: see note ML - [facility] LB RUBELLA AB IGG Reviewed date:07/23/2024 08:22:00 AM Interpretation: Performing Lab: Notes/Report: [facility] , Rubella Antibodies, IgG 1.57 Immune > 0.99 index Non-immune <0.90 Equivocal 0.90 - 0.99 Performed at: [facility] Immune >0.[address] [place] [id number] Corporate Sales Manager: Andrew Harris PhD, Phone: [phone] Performing Lab: see note [facility] LB Type and Screen Reviewed date:07/23/2024 08:22:00 AM Interpretation: Performing Lab: Notes/Report: [facility] , Blood Type A Positive Antibody Screen NEGATIVE HIV Ab/p24 Ag with Reflex Reviewed date:07/23/2024 08:22:00 AM Interpretation: Performing Lab: Notes/Report: [facility] , HIV Ab/p24 Ag Screen Non Reactive Non Reactive Corporate Sales Manager: Andrew Harris PhD, Phone: [phone] detected. There is no laboratory evidence of HIV infection. HIV-1/HIV-2 antibodies and HIV-1 p24 antigen were NOT HIV Negative Performed at: [address] [id number] Performing Lab: see note [facility] Rapid Plasma Reagin, Quant Reviewed date:07/23/2024 08:22:00 AM Interpretation: Performing Lab: Notes/Report: [facility] , Rapid Plasma Reagin, Quant Non Reactive NonRea<1:1 titer Performed at: [facility] infection, a reflex cascade that includes both RPR and a treponema-specific assay should be utilized, such as Treponema pallidum (Syphilis) Screening [place] (164390) or screening and diagnosis of syphilis. This test is Corporate Sales Manager: Andrew Harris PhD, Phone: [phone] Please Note: This test does not meet current guidelines for Rapid Plasma Reagin (RPR) Test With Reflex to Quantitative RPR and Confirmatory Treponema pallidum Antibodies (668476). [address] [place] [phone] intended for following treatment response in patients being treated for syphilis infection. To screen for syphilis Performing Lab: see note [facility] LB HCV Antibody RFX to Quant PC R Reviewed date:07/23/2024 08:22:00 AM Interpretation: Performing Lab: Notes/Report: [facility] , HCV Ab Non Reactive Non Reactive Interpretation: Comment . individual), or other evidence exists to indicate HCV infection. suspected (which may be delayed in an immunocompromised Not infected with HCV unless early or acute infection is Performing Lab: see note - [facility] LB HBsAg Screen Reviewed date:07/23/2024 08:22:00 AM Interpretation: Performing Lab: Notes/Report: [facility] , HBsAg Screen Negative Negative Corporate Sales Manager: Andrew Harris PhD, Phone: [phone] [address] [place], [place] [phone] Performed at: [facility] Performing Lab: see note [facility] Urine Culture, Routine Reviewed date:07/23/2024 08:22:00 AM Interpretation: Performing Lab: Notes/Report: [facility] , Urine Culture, Routine See Below For Report Urine Culture, Routine Urine Culture, Routine Mixed urogenital tami Urine Culture, Routine Urine Culture, Routine 10,000-25,000 col nan forming units per mL Urine Culture, Routine Urine Culture, Routine Performed at: [facility] Urine Culture, Routine Urine Culture, Routine [address] [place] [phone] Urine Culture, Routine Urine Culture, Routine Corporate Sales Manager: Riky Harris PhD, Phone: [phone] Urine Culture, Routine Performing Lab: see note SEE REPORT - Network Operations Manager Id information not found for OBX-specific test analyst legend [facility] LB Box Test Reviewed date:07/23/2024 08:22:00 AM Interpretation: Performing Lab: Notes/Report: [facility] , BOX Test Sent Out UNITY BOX Test Reference Lab [facility] Test Date Sent 07/21/24 Performing Lab: see note [facility] LB CBC AUTO DIFF Reviewed date:08/03/2024 08:30:13 AM Interpretation: Performing Lab: Notes/Report: [facility] , White Blood Count 11.1 [...] [facility] LB PREG QUANT HCG Reviewed date:08/03/2024 08:30:13 AM Interpretation: Performing Lab: Notes/Report: [facility] , HCG Quantitative 1656 15,000-200,000 6-8 WEEKS 1,000-50,000 4-5 WEEKS 10,000-100,000 2-3 MONTHS 10,000-100,000 5-6 WEEKS 100-5,000 2-3 WEEKS 50-500 1-2 WEEKS 5-50 0.2-1 WEEK 500-10,000 3-4 WEEKS Performing Lab: see note ML - The [facility] LB PROF 14(COMP METB) Reviewed date:08/03/2024 08:30:13 AM Interpretation: Performing Lab: Notes/Report: [facility] , Sodium 140 136-145 mmol/L Potassium 3.4 [...] 0.9 Performing Lab: see note ML - [facility] US OB transvaginal Reviewed date:08/03/2024 08:30:13 AM Interpretation: Performing Lab: Notes/Report: Source Facility: [place] [address] Ultrasound Report Signed Patient: VIMAL FUNES MR#: [id number] : 2000 Acct:[id number] Age/Sex: 24 / F ADM Date: 08/02/24 Loc: ER Attending Dr: Ordering Physician: Kishan Cosby Date of Service: 08/02/24 Procedure(s): US OB transvaginal Accession Number(s): [id number] cc: JENNIFER SEE ; Kishan Cosby [place] [address] Patient Name: VIMAL FUNES MRN: [id number] date: 2000 Sex: F Assigned Patient Location: ER Current Patient Location: ER Accession/Order Number: [id number] Exam Date: 08/02/2024 19:17 Report Date: 08/02/2024 [...] M.D. Signed By: 08/02/242126 DD/ 23 TD/TT: Insurance Coordinator: [place] [address] Ultrasound Report Signed Patient: VIMAL FUENS MR#: [id number] : 2000 Acct:[id number] Age/Sex: 24 / F ADM Date: 08/02/24 Loc: ER Attending Dr: Ordering Physician: Kishan Cosby Date of Service: 08/02/24 Procedure(s): US OB transvaginal Accession Number(s): [id number] cc: JENNIFER SEE ; Kishan Cosby [place] [id number] Patient Name: VIMAL FUNES MRN: [id number] date: 2000 Sex: F Assigned Patient Location: ER Current Patient Location: ER Accession/Order Number: [id number] Exam Date: 19:17 Report Date: 08/02/2024 21:24 [...] M.D. Signed By: 08/02/242126 DD/ 23 TD/TT: Insurance Coordinator: CBC AUTO DIFF Reviewed date:08/10/2024 08:58:56 AM Interpretation: Performing Lab: Notes/Report: [facility] , White Blood Count 8.9 4.0-11.0 10 [...] 08:58:56 AM Interpretation: Performing Lab: Notes/Report: [facility] , HCG Quantitative 240 50-500 1-2 WEEKS 1,000-50,000 4-5 WEEKS 15,000-200,000 6-8 WEEKS 10,000-100,000 2-3 MONTHS 100-5,000 2-3 WEEKS 500-10,000 3-4 WEEKS 5-50 0.2-1 WEEK 10,000-100,000 5-6 WEEKS Performing Lab: see note ML - The [facility] LB US OB transvaginal Reviewed date:08/10/2024 08:58:56 AM Interpretation: Performing Lab: Notes/Report: Source Facility: [place] [address] [place] [address] Ultrasound Report Signed Patient: VIMAL FUNES MR#: [id number] : 2000 Acct:[id number] Age/Sex: 24 / F ADM Date: 08/10/24 Loc: SURGOUT Attending Dr: Mackenzie Rodriguez D.O. Ordering Physician: Mackenzie Rodriguez D.O. Date of Service: 08/10/24 Procedure(s): US OB transvaginal Accession Number(s): [id number] cc: JENNIFER SEE ; Mackenzie Rodriguez D.O. [place] [address] Patient Name: VIMAL FUNES MRN: [id number] date: 2000 Sex: F Assigned Patient Location: [facility] Current Patient Location: [facility] Accession/Order Number: [id number] Exam Date: 08/10/2024 08:10 Report Date: 08/10/2024 [...] M.D. Signed By: 08/10/24846 DD/ 3 TD/TT: Insurance Coordinator: [place] [address] Ultrasound Report Signed Patient: VIMAL FUNES MR#: [id number] : 2000 Acct:[id number] Age/Sex: 24 / F ADM Date: 08/10/24 [facility]ending Dr: Mackenzie Rodriguez D.O. Ordering Physician: Mackenzie Rodriguez D.O. Date of Service: 08/10/24 Procedure(s): US OB transvaginal Accession Number(s): [id number] cc: JENNIFER SEE ; Mackenzie Rodriguez D.O. The [place] [id number] Patient Name: VIMAL FUNES MRN: [id number] date: 2000 Sex: F Assigned Patient Location: [facility] Current Patient Location: [facility] Accession/Order Number: [id number] Exam Date: 08:10 Report Date: 08/10/2024 08:44 [...] M.D. Signed By: 08/10/24846 DD/ 3 TD/TT: Insurance Coordinator: PREG QUANT HCG Reviewed date:08/20/2024 11:36:34 AM Interpretation: Performing Lab: Notes/Report: [facility] , HCG Quantitative 6 500-10,000 3-4 WEEKS 5-50 0.2-1 WEEK 15,000-200,000 6-8 WEEKS 10,000-100,000 2-3 MONTHS 50-500 1-2 WEEKS 1,000-50,000 4-5 WEEKS 100-5,000 2-3 WEEKS 10,000-100,000 5-6 WEEKS Performing Lab: see note - [facility] LB PREG QUANT HCG Reviewed date:11/20/2024 01:38:35 PM Interpretation: Performing Lab: Notes/Report: [facility] , HCG Quantitative 6254 5-50 0.2-1 WEEK 10,000-100,000 2-3 MONTHS 500-10,000 3-4 WEEKS 100-5,000 2-3 WEEKS 15,000-200,000 6-8 WEEKS 10,000-100,000 5-6 WEEKS 50-500 1-2 WEEKS 1,000-50,000 4-5 WEEKS Performing Lab: see note ML - [facility] LB PREG QUANT HCG Reviewed date:11/22/2024 08:59:16 AM Interpretation: Performing Lab: Notes/Report: [facility] , HCG Quantitative 35786 5-50 0.2-1 WEEK 100-5,000 2-3 WEEKS 10,000-100,000 2-3 MONTHS 1,000-50,000 4-5 WEEKS 500-10,000 3-4 WEEKS 15,000-200,000 6-8 WEEKS 10,000-100,000 5-6 WEEKS 50-500 1-2 WEEKS Performing Lab: see note ML - [facility] LB CBC AUTO DIFF Reviewed date:01/07/2025 01:05:16 PM Interpretation: Performing Lab: Notes/Report: [facility] , White Blood Count 9.2 4.0-11.0 10 [...] 01:05:16 PM Interpretation: Performing Lab: Notes/Report: [facility] , Cannabinoid Screen Urine NEGATIVE NEGATIVE Phencyclidine [...] 150 ng/mL Performing Lab: see note - [facility] LB GLYCOHEMOGLOBIN A1C Reviewed date:01/07/2025 01:05:16 PM Interpretation: Performing Lab: Notes/Report: [facility] , Glycohemoglobin A1C 5.0 4.5-6.2 % > 7.0 ADA RECOMMENDED LIMIT 4.0 - 6.0 ADA THERAPEUTIC TARGET < 7.0 ACTION SUGGESTED Estimated Average Glucose 97 Performing Lab: see note - [facility] LB RUBELLA AB IGG Reviewed date:01/07/2025 01:05:16 PM Interpretation: Performing Lab: Notes/Report: [facility] , Rubella Antibodies, IgG 1.57 Immune > 0.99 index Performed at: [facility] Immune >0.99 Equivocal 0.90 - 0.[address] [place] [phone] Non-immune <0.90 Corporate Sales Manager: Andrew Harris PhD, Phone: [phone] Performing Lab: see note - [facility] LB Type and Screen Reviewed date:01/07/2025 01:05:16 PM Interpretation: Performing Lab: Notes/Report: [facility] , Blood Type A Positive Antibody Screen NEGATIVE HCV Antibody RFX to Quant PC R Reviewed date:01/07/2025 01:05:16 PM Interpretation: Performing Lab: Notes/Report: [facility] , HCV Ab Non Reactive Non Reactive Interpretation: Comment . suspected (which may be delayed in an immunocompromised Performed at: - [facility] [address] [id number] Corporate Sales Manager: Andrew Harris PhD, Phone: [phone] infection. individual), or other evidence exists to indicate HCV Not infected with HCV unless early or acute infection is Performing Lab: see note LC - [facility] LB Box Test Reviewed date:01/07/2025 01:05:16 PM Interpretation: Performing Lab: Notes/Report: [facility] , BOX Test Sent Out UNITY BOX Test Reference Lab UNITY BOX Test Date Sent 01-05-25 Performing Lab: see note - [facility] LB US OB cervical length Reviewed date:03/14/2025 10:39:54 AM Interpretation: Performing Lab: Notes/Report: Source Facility: [place] [address] Ultrasound Report Signed Patient: VIMAL FUNES MR#: [id number] : 2000 Acct:[id number] Age/Sex: 24 / F ADM Date: 03/08/25 Loc: US Attending Dr: Mackenzie Rodriguez D.O. Ordering Physician: Mackenzie Rodriguez D.O. Date of Service: 03/08/25 Procedure(s): US OB cervical length Accession Number(s): [id number] cc: JENNIFER SEE ; Mackenzie Rodriguez D.O. [place] [address] Patient Name: VIMAL FUNES MRN: [id number] date: 2000 Sex: F Assigned Patient Location: US Current Patient Location: US Accession/Order Number: [id number] Exam Date: 03/08/2025 20:31 Report Date: 03/08/2025 20:36 At the request of: MACKENZIE MARIA E DO Procedure: US OB anatomy Ultrasound assessment [...] Knapp M.D. 03/08/2025 8:36 PM Dictation Location: [employer] Electronically authenticated by: [id number] Y Date: 03/08/2025 20:36 Dictated By: Shivam Knapp D.O. Signed By: 03/08/252037 DD/ 35 TD/TT: Insurance Coordinator: [place] [address] Ultrasound Report Signed Patient: VIMAL FUNES MR#: [id number] : 2000 Acct:[id number] Age/Sex: 24 / F ADM Date: 03/08/25 Loc: US Attending Dr: Mackenzie Rodriguez D.O. Ordering Physician: Mackenzie Rodriguez D.O. Date of Service: 03/08/25 Procedure(s): US OB cervical length Accession Number(s): [id number] cc: JENNIFER SEE ; Mackenzie Rodriguez D.O. [place] [address] Patient Name: VIMAL FUNES MRN: [facility]:[id number] date: 2000 Sex: F Assigned Patient Location: Current Patient Location: Accession/Order Number: [id number] Exam Date: 03/08/2025 20:31 Report Date: 03/08/2025 [...] Knapp M.D. 03/08/2025 8:36 PM Dictation Location: [place] [address] Electronically authenticated by: [id number] Y Date: 03/08/2025 20:36 Dictated By: Shivam Knapp D.O. Signed By: 03/08/252037 DD/ 35 TD/TT: Insurance Coordinator: US OB anatomy Reviewed date:03/14/2025 10:39:54 AM Interpretation: Performing Lab: Notes/Report: Source Facility: [place] [address] Ultrasound Report Signed Patient: VIMAL FUNES MR#: [id number] : 2000 Acct:[id number] Age/Sex: 24 / F ADM Date: 03/08/25 Loc: US Attending Dr: Mackenzie Rodriguez D.O. Ordering Physician: Mackenzie Rodriguez D.O. Date of Service: 03/08/25 Procedure(s): US OB anatomy Accession Number(s): [id number] cc: JENNIFER SEE ; Mackenzie Rodriguez D.O. [place] [address] Patient Name: VIMAL FUNES MRN: [facility]:[id number] date: 2000 Sex: F Assigned Patient Location: US Current Patient Location: US Accession/Order Number: [id number] Exam Date: 03/08/2025 20:31 Report Date: 03/08/2025 [...] Knapp M.D. 03/08/2025 8:36 PM Dictation Location[email or web address] Electronically authenticated by: [id number] Y Date: 03/08/2025 20:36 Dictated By: Shivam Knapp D.O. Signed By: 03/08/252037 DD/ 35 TD/TT: Insurance Coordinator: [place] [address] Ultrasound Report Signed Patient: VIMAL FUNES MR#: [id number] : 2000 Acct:[id number] Age/Sex: 24 / F ADM Date: 03/08/25 Loc: US Attending Dr: Mackenzie Rodriguez D.O. Ordering Physician: Mackenzie Rodriguez D.O. Date of Service: 03/08/25 Procedure(s): US OB anatomy Accession Number(s): [id number] cc: JENNIFER SEE ; Mackenzie Rodriguez D.O. The [place] [id number] Patient Name: VIMAL FUNES MRN: [id number] date: 2000 Sex: F Assigned Patient Location: US Current Patient Location: US Accession/Order Number: [id number] Exam Date: 03/08/2025 20:31 Report Date: 03/08/2025 20:36 At the request of: MACKEZNIE RODRIGUEZ DO Procedure: US OB anatomy Ultrasound [...] Knapp M.D. 03/08/2025 8:36 PM Dictation Location: [place] [address] Electronically authenticated by: [id number] Y Date: 03/08/2025 20:36 Dictated By: Shivam Knapp D.O. Signed By: 03/08/252037 DD/ 35 TD/TT: Insurance Coordinator: CBC AUTO DIFF Reviewed date:05/06/2025 10:03:33 AM Interpretation: Performing Lab: Notes/Report: [facility] , White Blood Count 12.5 4.0-11.0 10 [...] [facility] LB PTT Reviewed date:05/06/2025 10:03:33 AM Interpretation: Performing Lab: Notes/Report: [facility] , Partial Thromboplastin Time 25.7 22.3-36.2 sec Performing Lab: see note - [facility] LB SGOT Reviewed date:05/06/2025 10:03:33 AM Interpretation: Performing Lab: Notes/Report: [facility] , Aspartate Amino Transferase 23 15-37 U/L Performing Lab: see note - [facility] LB URIC ACID SERUM Reviewed date:05/06/2025 10:03:33 AM Interpretation: Performing Lab: Notes/Report: [facility] , Uric Acid 3.7 2.6-6.0 mg/dL Performing Lab: see note ML - [facility] LB Prothrombin Time INR Reviewed date:05/06/2025 10:03:33 AM Interpretation: Performing Lab: Notes/Report: [facility] , Prothrombin Time 10.1 9.0-11.6 sec INR 0.95 2.5-3.5 RECURRENT THROMBOSIS 2.5-3.5 FOR PROSTHETIC HEART VALVE REPLACEMENT 2.0-3.0 CONDITIONS NOT LISTED BELOW DESIRED INR: Performing Lab: see note ML - [facility] Total Protein 24 Hour Urine Reviewed date:05/07/2025 09:01:34 AM Interpretation: Performing Lab: Notes/Report: [facility] , Total Protein Urine Random <6.0 <=11.9 mg/dL Total Volume 24 Hour Urine 3700 Performing Lab: see note - [facility] US OB BPP w non-stress Reviewed date:05/13/2025 12:03:41 PM Interpretation: Performing Lab: Notes/Report: Source Facility: [place] [address] [place] [address] Ultrasound Report Signed Patient: VIMAL FUNES MR#: [id number] : 2000 Acct:[id number] Age/Sex: 25 / F ADM Date: 05/11/25 Loc: [facility] 253-[address]: Rossana Leach Ordering Physician: Rossana Leach Date of Service: 05/11/25 Procedure(s): US OB BPP w non-stress Accession Number(s): [id number] cc: Rossana Leach; MAYI,[place] [id number] Patient Name: VIMAL FUNES MRN: [id number] date: 2000 Sex: F Assigned Patient Location: [facility] Current Patient Location: [facility] Accession/Order Number: [id number] Exam Date: 05/11/2025 12:01 Report Date: 05/11/2025 12:02 At the request of: ROSSANA LEACH Procedure: US OB BPP w non-stress Biophysical profile. Reason for exam: Gestational diabetes COMPARISON: 05/04/2025 TECHNIQUE: Transabdominal imaging of the gravid uterus was obtained. FINDINGS: The rack room worker reports a BPP of 8 out of 8. DANYA is normal at 11.9 cm. heart rate 138 bpm. US/US OB BPP w non-stress IMPRESSION: BPP 8 out of 8. Impression dictated by: Bulmaro Arias Jr., D.O. 05/11/2025 12:02 PM Dictation Location: [place] [address] Electronically authenticated by: [id number] Y Date: 05/11/2025 12:02 Dictated By: Bulmaro Arias M.D. Signed By: 05/11/25 1204 DD/ 1202 TD/TT: Insurance Coordinator: [place] [address] Ultrasound Report Signed Patient: VIMAL FUNES MR#: [id number] : 2000 Acct:[id number] Age/Sex: 25 / F ADM Date: 05/11/25 Loc: [facility] 253-[address]: Rossana Leach Ordering Physician: Rossana Leach Date of Service: 05/11/25 Procedure(s): US OB BPP w non-stress Accession Number(s): [id number] cc: Rossana Leach; [address] [address] Patient Name: VIMAL FUNES MRN: [id number] date: 2000 Sex: F Assigned Patient Location: [facility] Current Patient Location: [facility] Accession/Order Number: [id number] Exam Date: 05/11/2025 12:01 Report Date: 05/11/2025 12:02 At the request of: ROSSANA LEACH Procedure: US OB fet al BPP w non-stress Biophysical profile. Reason for exam: Gestational diabetes COMPARISON: 05/04/2025 TECHNIQUE: Transabdominal imaging of the gravid uterus was obtained. FINDINGS: The rack room worker reports a BPP of 8 out of 8. DANYA is normal at 11.9 cm. heart rate 138 bpm. US/US OB BPP w non-stress IMPRESSION: BPP 8 ou t of 8. Impression dictated by: Bulmaro Arias Jr., D.O. 05/11/2025 12:02 PM Dictation Location: [employer] Electronically authenticated by: [id number] Y Date: 05/11/2025 12:02 Dictated By: Bulmaro Arias M.D. Signed By: 05/11/25 1204 DD/ 1202 TD/TT: Insurance Coordinator: [place] Reviewed date:05/20/2025 11:23:08 AM Interpretation: Performing Lab: Notes/Report: [facility] , Blood Urea Nitrogen 9.0 7.0-18.0 mg/dL Performing Lab: see note ML - [facility] LB CBC AUTO DIFF Reviewed date:05/20/2025 11:23:08 AM Interpretation: Performing Lab: Notes/Report: [facility] , White Blood Count 15.0 4.0-11.0 10 [...] 3/uL Performing Lab: see note ML - [facility] LB CREATININE Reviewed date:05/20/2025 11:23:08 AM Interpretation: Performing Lab: Notes/Report: [facility] , Creatinine 0.38 0.55-1.02 mg/dL Estimated GFR ( Ashley >60 >=60 mL/min/1.73m 2 Estimated GFR (Non- Hortencia >60 >=60 mL/min/1.73m 2 Performing Lab: see note ML - [facility] LDH Reviewed date:05/20/2025 11:23:08 AM Interpretation: Performing Lab: Notes/Report: [facility] , Lactate Dehydrogenase 147 81-234 U/L Performing Lab: see note ML - [facility] LB PTT Reviewed date:05/20/2025 11:23:08 AM Interpretation: Performing Lab: Notes/Report: [facility] , Partial Thromboplastin Time 25.6 22.3-36.2 sec Performing Lab: see note ML - [facility] LB SGOT Reviewed date:05/20/2025 11:23:08 AM Interpretation: Performing Lab: Notes/Report: [facility] , Aspartate Amino Transferase 18 15-37 U/L Performing Lab: see note ML - [facility] LB URIC ACID SERUM Reviewed date:05/20/2025 11:23:08 AM Interpretation: Performing Lab: Notes/Report: [facility] , Uric Acid 4.0 2.6-6.0 mg/dL Performing Lab: see note ML - [facility] LB Prothrombin Time INR Reviewed date:05/20/2025 11:23:08 AM Interpretation: Performing Lab: Notes/Report: [facility] , Prothrombin Time 10.2 9.0-11.6 sec INR 0.96 2.5-3.5 RECURRENT THROMBOSIS 2.0-3.0 CONDITIONS NOT LISTED BELOW 2.5-3.5 FOR PROSTHETIC HEART VALVE REPLACEMENT DESIRED INR: Performing Lab: see note - [facility] Total Protein 24 Hour Urine Reviewed date:05/21/2025 08:48:02 AM Interpretation: Performing Lab: Notes/Report: [facility] , Total Protein Urine Random 6.7 <=11.9 mg/dL Total Volume 24 Hour Urine 2900 Total Protein 24 Hour Urine 194.3 <=149.1 mg/24hr Performing Lab: see note [facility] US OB BPP w non-stress Reviewed date:05/28/2025 11:03:16 AM Interpretation: Performing Lab: Notes/Report: Source Facility: [place] [address] Ultrasound Report Signed Patient: VIMAL FUNES MR#: [id number] : 2000 Acct:[id number] Age/Sex: 25 / F ADM Date: 05/25/25 Loc: US Attending Dr: Rossana Laech Ordering Physician: Rossana Leach Date of Service: 05/25/25 Procedure(s): US OB BPP w non-stress Accession Number(s): [id number] cc: Rossana Leach; JENNIFER SEE [place] [address] Patient Name: VIMAL FUNES MRN: [id number] date: 2000 Sex: F Assigned Patient Location: [facility] Current Patient Location: Accession/Order Number: [id number] Exam Date: 05/25/2025 08:21 Report Date: 05/25/2025 11:13 At the request of: ROSSANA LEACH Procedure: [...] Acharya M.D. 05/25/2025 11:13 AM Dictation Location: [place] [address] Electronically authenticated by: [id number] Y Date: 05/25/2025 11:13 Dictated By: Heriberto Acharya M.D. Signed By: 05/25/25 1116 DD/ 1113 TD/TT: Insurance Coordinator: [place] [address] Ultrasound Report Signed Patient: VIMAL FUNES MR#: [id number] : 2000 Acct:[id number] Age/Sex: 25 / F ADM Date: 05/25/25 Loc: US Attending Dr: Rossana Leach Ordering Physician: Rossana Leach Date of Service: 05/25/25 Procedure(s): US OB BPP w non-stress Accession Number(s): [id number] cc: JENNIFER Watkins [address] [address] Patient Name: VIMAL FUNES MRN: [id number] date: 2000 Sex: F Assigned Patient Location: [facility] Current Patient Location: Accession/Order Number: [id number] Exam Date: 05/25/2025 08:21 Report Date: 05/25/2025 11:13 At the request of: ROSSANA LEACH Procedure: US OB fet al BPP w non-stress US OB BPP w non-stress 05/25/2025 8:43 AM SIGNS AND SYMPTOMS: GESTATIONAL DIABETES MELLITUS O24.419 PROTOCOL: Transabdominal sonographic imaging of the gravid uterus COMPARISON: None FINDINGS: heart rate: 12 6 bpm. Amniotic fluid index : 10.63 cm. The deepest vertical pocket measures 4.78 cm. Estimated gestationa l age: 31 weeks 5 days Biophysical profile: breathing movements: 2/2 Gross body movements : 2/2 tone: 2/2 Amniotic fluid volum e: 2/2 US/US OB BPP w non-stress IMPRESSION: Biophysical profile: 05/03 Impression dictated by: Heriberto Acharya M.D. 05/25/2025 11:13 AM Dictation Location: [place] [address] Electronically authenticated by: [id number] Y Date: 05/25/2025 11:13 Dictated By: Heriberto Acharya M.D. Signed By: 05/25/25 1116 DD/ 1113 TD/TT: Insurance Coordinator: US OB growth Reviewed date:05/06/2025 10:03:33 AM Interpretation: Performing Lab: Notes/Report: Source Facility: [place] [address] Ultrasound Report Signed Patient: VIMAL FUNES MR#: [id number] : 2000 Acct:[id number] Age/Sex: 25 / F ADM Date: 05/04/25 Loc: [place] [address]: Rossana Leach Ordering Physician: Rossana Leach Date of Service: 05/04/25 Procedure(s): US OB growth Accession Number(s): [id number] cc: Rossana Leach; JENNIFER SEE [place] [address] Patient Name: VIMAL FUNES MRN: [id number] date: 2000 Sex: F Assigned Patient Location: [facility] Current Patient Location: [facility] Accession/Order Number: [id number] Exam Date: 05/04/2025 12:06 Report Date: 05/04/2025 [...] Jr., D.O. 05/04/2025 12:08 PM Dictation Location: [employer] Electronically authenticated by: [id number] Y Date: 05/04/2025 12:08 Dictated By: Bulmaro Arias M.D. Signed By: 05/04/25 1211 DD/ 1208 TD/TT: Insurance Coordinator: [place] [address] Ultrasound Report Signed Patient: VIMAL FUNES MR#: [id number] : 2000 Acct:[id number] Age/Sex: 25 / F ADM Date: 05/04/25 Loc: [place] [address]: Rossana Leach Ordering Physician: Rossana Leach Date of Service: 05/04/25 Procedure(s): US OB growth Accession Number(s): [id number] cc: Rossana Leach; JENNIFER SEE [place] [id number] Patient Name: VIMAL FUNES MRN: [id number] date: 2000 Sex: F Assigned Patient Location: [facility] Current Patient Location: [facility] Accession/Order Number: [id number] Exam Date: 05/04/2025 12:06 Report Date: 05/04/2025 [...] Jr., D.O. 05/04/2025 12:08 PM Dictation Location: [employer] Electronically authenticated by: [id number] Y Date: 05/04/2025 12:08 Dictated By: Bulmaro Arias M.D. Signed By: 05/04/25 1211 DD/ 1208 TD/TT: Insurance Coordinator: US OB BPP w non-stress Reviewed date:05/06/2025 10:03:33 AM Interpretation: Performing Lab: Notes/Report: Source Facility: [place] [address] Ultrasound Report Signed Patient: VIMAL FUNES MR#: [id number] : 2000 Acct:[id number] Age/Sex: 25 / F ADM Date: 05/04/25 Loc: [place] [address]: Rossana Leach Ordering Physician: Rossana Leach Date of Service: 05/04/25 Procedure(s): US OB BPP w non-stress Accession Number(s): [id number] cc: JENNIFER Watkins [place] [address] Patient Name: VIMAL FUNES MRN: [id number] date: 2000 Sex: F Assigned Patient Location: [facility] Current Patient Location: [facility] Accession/Order Number: [id number] Exam Date: 05/04/2025 12:08 Report Date: 05/04/2025 12:09 At the request of: ROSSANA LEACH Procedure: US OB BPP w non-stress Biophysical profile. Reason for exam: Gestational diabetes COMPARISON: None TECHNIQUE: Transabdominal imaging of the gravid uterus was obtained. FINDINGS: The rack room worker reports a BPP of 8 out of 8. DANYA is normal at 12.4 cm. heart rate 150 bpm. US/US OB BPP w non-stress IMPRESSION: BPP 8 out of 8. Impression dictated by: Bulmaro Arias Jr., D.O. 05/04/2025 12:09 PM Dictation Location: [place] [address] Electronically authenticated by: [id number] Y Date: 05/04/2025 12:09 Dictated By: Bulmaro Arias M.D. Signed By: 05/04/25 1212 DD/ 1209 TD/TT: Insurance Coordinator: [place] [address] Ultrasound Report Signed Patient: VIMAL FUNES MR#: [id number] : 2000 Acct:[id number] Age/Sex: 25 / F ADM Date: 05/04/25 Loc: [place] [address]: Rossana Leach Ordering Physician: Rossana Leach Date of Service: 05/04/25 Procedure(s): US OB BPP w non-stress Accession Number(s): [id number] cc: Rossana Leach; JENNIFER SEE [place] [address] Patient Name: VIMAL FUNES MRN: [facility]:[id number] date: 2000 Sex: F Assigned Patient Location: [facility] Current Patient Location: [facility] Accession/Order Number: [id number] Exam Date: 05/04/2025 12:08 Report Date: 05/04/2025 12:09 At the request of: ROSSANA LEACH Procedure: US OB fet al BPP w non-stress Biophysical profile. Reason for exam: Gestational diabetes COMPARISON: None TECHNIQUE: Transabdominal imaging of the gravid uterus was obtained. FINDINGS: The rack room worker reports a BPP of 8 out of 8. DANYA is normal at 12.4 cm. heart rate 150 bpm. US/US OB BPP w non-stress IMPRESSION: BPP 8 ou t of 8. Impression dictated by: Bulmaro Arias Jr., D.O. 05/04/2025 12:09 PM Dictation Location: [place] [address] Electronically authenticated by: [id number] Y Date: 05/04/2025 12:09 Dictated By: Bulmaro Arias M.D. Signed By: 05/04/25 1212 DD/ 1209 TD/TT: Insurance Coordinator: Glucose Tolerance 3 Hour Reviewed date:05/06/2025 10:03:33 AM Interpretation: Performing Lab: Notes/Report: [facility] , Glucose Tolerance 3 Hour GLU FAST 108H (<95) Col: 05/04/25 0723 GLU 2HR 186H (<155) Col: 05/04/25 0927 GLU 1HR 234H (<180) Col: 05/04/25 0826 GLU 3HR 133 (<140) Col: 05/04/25 1028 Performing Lab: see note ML - [facility] LB LDH Reviewed date:05/06/2025 10:03:33 AM Interpretation: Performing Lab: Notes/Report: [facility] , Lactate Dehydrogenase 163 81-234 U/L Performing Lab: see note ML - [facility] LB CREATININE Reviewed date:05/06/2025 10:03:33 AM Interpretation: Performing Lab: Notes/Report: [facility] , Creatinine 0.37 0.55-1.02 mg/dL Estimated GFR ( Ashley >60 >=60 mL/min/1.73m 2 Estimated GFR (Non- Hortencia >60 >=60 mL/min/1.73m 2 Performing Lab: see note ML - [facility] LB BUN Reviewed date:05/06/2025 10:03:33 AM Interpretation: Performing Lab: Notes/Report: [facility] , Blood Urea Nitrogen 8.0 7.0-18.0 mg/dL Performing Lab: see note ML - [facility] LB Glucose 1 Hour Reviewed date:04/29/2025 09:37:12 AM Interpretation: Performing Lab: Notes/Report: [facility] , Glucose 1 Hour 171 <130 mg/dL Performing Lab: see note - [facility] LB CBC AUTO DIFF Reviewed date:04/29/2025 09:37:12 AM Interpretation: Performing Lab: Notes/Report: [facility] , White Blood Count 12.5 4.0-11.0 10 [...] [facility] LB IGP,Aptima HPV,Age Gdln Reviewed date:02/25/2025 03:13:18 PM Interpretation: Performing Lab: Notes/Report: SPATULA-ALONE ENDOCERVIX [facility] , Age Gdln ACOG Testing Note . Age Algo ACOG Yris... 21-29 01 Jenise Byrne MD, Clinician Provided Cytology Information L-Low Normal,H-High Normal,LL-Alert Low,HH-Alert High <-Panic Low,>-Panic High,A-Abnormal,AA-Cri tical Abnormal TESTS RESULT FLAG UNITS REF RANGE LAB Source.............End ocervix FLAG LEGEND: No. of containers..01 ThinPrep Vial Performed at: 01 = [employer] [address] [place] [address] IGP, rfx Aptima HPV ASCU Note . NEGATIVE FOR INTRAEPITHELIAL LESION OR MALIGNANCY. occur. Corporate Sales Manager: Jenise Byrne MD, Phone: [phone] <-Panic Low,>-Panic High,A-Abnormal,AA-Cri tical Abnormal should not be used as the sole means of detecting cervical Performed at: [facility] The Pap smear is a screening test designed to aid in the uterine cervix. It is not a diagnostic procedure and This liquid based ThinPrep(R) pap test was screened with cancer. Both false-positive and false-negative reports do Performed at: =[facility] L-Low Normal,H-High Normal,LL-Alert Low,HH-Alert High Whitney Alvarez, Pigment Mixer (MELIP) Satisfactory for evaluation. Endocervical and/or squamous metaplastic Performed at: cells (endocervical component) are present. Note: Note 02 [facility] [address] [place], [place] [id number] . [address] [place] [address] Corporate Sales Manager: Jenise Byrne MD, Phone: [phone] Performed by: Test Methodology: Note 02 TESTS RESULT FLAG UNITS REF RANGE LAB The HPV DNA reflex criteria were not met with this specimen Specimen adequacy: 02 Jenise Byrne MD, FLAG LEGEND: detection of premalignant and malignant conditions of the result therefore, no HPV testing was performed. DIAGNOSIS: 02 the use of an image guided system. [address] [place], [place] [address] [place] [id number] Performing Lab: see note [facility] LB Urine Culture, Routine Reviewed date:01/07/2025 01:05:16 PM Interpretation: Performing Lab: Notes/Report: [facility] , Urine Culture, Routine See Below For Report Urine Culture, Routine Urine Culture, Routine Mixed urogenital tami Urine Culture, Routine Urine Culture, Routine 50,000-100,000 co lony forming units per mL Urine Culture, Routine Urine Culture, Routine Performed at: [facility] Urine Culture, Routine Urine Culture, Routine [address] [place], [place] [id number] Urine Culture, Routine Urine Culture, Routine Corporate Sales Manager: Riky Harris PhD, Phone: [phone] Urine Culture, Routine Performing Lab: see note SEE REPORT - Network Operations Manager Id information not found for OBX-specific test analyst legend LC - [facility] LB HBsAg Screen Reviewed date:01/07/2025 01:05:16 PM Interpretation: Performing Lab: Notes/Report: [facility] , HBsAg Screen Negative Negative Corporate Sales Manager: Andrew Harris PhD, Phone: [phone] Performed at: [address] [id number] Performing Lab: see note [facility] Rapid Plasma Reagin, Quant Reviewed date:01/07/2025 01:05:16 PM Interpretation: Performing Lab: Notes/Report: [facility] , Rapid Plasma Reagin, Quant Non Reactive NonRea<1:1 titer treated for syphilis infection. To screen for syphilis Treponema pallidum (Syphilis) Screening [place] ([id number]) or Corporate Sales Manager: Andrew Harris PhD, Phone: [phone] treponema-specific assay should be utilized, such as RPR and Confirmatory Treponema pallidum Antibodies (739247). Rapid Plasma Reagin (RPR) Test With Reflex to Quantitative Please Note: This test does not meet current guidelines for Performed at: [address] [id number] infection, a reflex cascade that includes both RPR and a screening and diagnosis of syphilis. This test is intended for following treatment response in patients being Performing Lab: see note [facility] HIV Ab/p24 Ag with Reflex Reviewed date:01/07/2025 01:05:16 PM Interpretation: Performing Lab: Notes/Report: [facility] , HIV Ab/p24 Ag Screen Non Reactive Non Reactive Performed at: [facility] HIV-1/HIV-2 antibodies and HIV-1 p24 antigen were NOT Corporate Sales Manager: Andrew Harris PhD, Phone: [phone] HIV Negative [address] [place] [phone] detected. There is no laboratory evidence of HIV infection. Performing Lab: see note - [facility] US OB BPP w non-stress Reviewed date:05/20/2025 11:23:08 AM Interpretation: Performing Lab: Notes/Report: Source Facility: [place] [address] [place] [address] Ultrasound Report Signed Patient: VIMAL FUNES MR#: [id number] : 2000 Acct:[id number] Age/Sex: 25 / F ADM Date: 05/18/25 Loc: US Attending Dr: Rossana Leach Ordering Physician: Rossana Leach Date of Service: 05/18/25 Procedure(s): US OB BPP w non-stress Accession Number(s): [id number] cc: Rossana Leach; JENNIFER SEE [place] [address] Patient Name: VIMAL FUNES MRN: [id number] date: 2000 Sex: F Assigned Patient Location: [facility] Current Patient Location: Accession/Order Number: [id number] Exam Date: 05/18/2025 11:16 Report Date: 05/18/2025 [...] Acharya M.D. 05/18/2025 5:08 PM Dictation Location: [place] [address] Electronically authenticated by: [id number] Y Date: 05/18/2025 17:08 Dictated By: Heriberto Acharya M.D. Signed By: 05/18/252016 DD/ 07 TD/TT: Insurance Coordinator: [place] [address] Ultrasound Report Signed Patient: VIMAL FUNES MR#: [id number] : 2000 Acct:[id number] Age/Sex: 25 / F ADM Date: 05/18/25 Loc: US Attending Dr: Rossana Leach Ordering Physician: Rossana Leach Date of Service: 05/18/25 Procedure(s): US OB BPP w non-stress Accession Number(s): [id number] cc: Rossana Leach; JENNIFER SEE [place] [address] Patient Name: VIMAL FUNES MRN: [id number] date: 2000 Sex: F Assigned Patient Location: [facility] Current Patient Location: Accession/Order Number: [id number] Exam Date: 05/18/2025 11:16 Report Date: 05/18/2025 [...] Acharya M.D. 05/18/2025 5:08 PM Dictation Location: [place] [address] Electronically authenticated by: [id number] Y Date: 05/18/2025 17:08 Dictated By: Heriberto Acharya M.D. Signed By: 05/18/252016 DD/ 07 TD/TT: Insurance Coordinator: US OB incomplete anatomy Reviewed date:03/25/2025 09:01:39 AM Interpretation: Performing Lab: Notes/Report: Source Facility: [place] [address] Ultrasound Report Signed Patient: VIMAL FUNES MR#: [id number] : 2000 Acct:[id number] Age/Sex: 24 / F ADM Date: 03/23/25 Loc: US Attending Dr: Mackenzie Rodriguez D.O. Ordering Physician: Mackenzie Rodriguez D.O. Date of Service: 03/23/25 Procedure(s): US OB incomplete anatomy Accession Number(s): [id number] cc: JENNIFER SEE ; Mackenzie Rodriguez D.O. [place] [address] Patient Name: VIMAL FUNES MRN: [id number] date: 2000 Sex: F Assigned Patient Location: US Current Patient Location: US Accession/Order Number: [id number] Exam Date: 03/25/2025 08:23 Report Date: 03/25/2025 [...] Brown M.D. 03/25/2025 8:25 AM Dictation Location: [place] [address] Electronically authenticated by: [id number] Y Date: 03/25/2025 08:25 Dictated By: Meghana Brown M.D. Signed By: 03/25/2527 DD/ 4 TD/TT: Insurance Coordinator: [place] [address] Ultrasound Report Signed Patient: VIMAL FUNES MR#: [id number] : 2000 Acct:[id number] Age/Sex: 24 / F ADM Date: 03/23/25 Loc: US Attending Dr: Mackenzie Rodriguez D.O. Ordering Physician: Mackenzie Rodriguez D.O. Date of Service: 03/23/25 Procedure(s): US OB incomplete anatomy Accession Number(s): [id number] cc: JENNIFER SEE ; Mackenzie Rodriguez D.O. [address] [address] Patient Name: VIMAL FUNES MRN: [id number] date: 2000 Sex: F Assigned Patient Location: US Current Patient Location: US Accession/Order Number: [id number] Exam Date: 03/25/2025 08:23 Report Date: 03/25/2025 [...] still not well visualized due to position. US/ OB incomplete anatomy IMPRESSION: CONTINUED LIMITED VISUALIZATION OF THE EXTREMITIES AND FACIAL FEATURES. Impression dictated by: Meghana Brown M.D. 03/25/2025 8:25 AM Dictation Location: [place] [address] Electronically authenticated by: [id number] Y Date: 03/25/2025 08:25 Dictated By: Meghana Brown M.D. Signed By: 03/25/25826 DD/ 4 TD/TT: Insurance Coordinator: Reason For Referral No Information Medications Medication [...] 06/05/2024 Encounters Encounter Location Date Provider Diagnosis [facility] Medicine [address] [place] [address] 06/05/2024 Jennifer See Z33.1 and Wellness examination [...] ACCESS PPO PLUS LOCAL PLAN [address] [place] [address] [phone] [id number] Vimal Funes Self - patient is the insured [employer] [place] [employer] [address] [place] [address] [id number] Vimal Funes Self - patient is the insured Medical (General) History Medical History History ICD Code lead poisoning Surgical History Surgery Date(Month/Year) ear tubes
--- OUTSIDE RECORDS SUMMARY | 2025-06-01 10:55 | XMS_ITS | Encounter Summary ---
Author Organization [facility] Address [address] [place] [address] Care Team Providers Care Mirror Inspector Name Role Phone Unallocated, Noms Provider Primary Care Provi krissy Encounter Details Date Type Department Care Team (Late Contact Info) Description 05/08/2025 Abstract [facility] [address] [facility] [place] [address] Jose Rodriguez DO [address] [facility] [address] Josué Morataya, [facility] Social History Tobacco Use Types Packs/Day Years [...] 3:00 PM EDT Routine [facility] [address] [facility] [place] [address] Rossana Ramos PA [address] [place] [address] [place] [address] documented as of this encounter Visit Diagnoses Not on filedocumented in this encounter Care Teams Mirror Inspector Relationship Specialty Start Date End Date Unallocated, Noms Provider, [address] [place] [address] PCP - General Family Medicine 08/03/24 documented as of this encounter
--- OUTSIDE RECORDS SUMMARY | 2025-06-01 10:55 | XMS_ITS | Encounter Summary ---
Author Organization [facility] Address [address] [place] [address] Care Team Providers Care Thread Winder Name Role Phone Unallocated, Noms Provider Primary Care Provi krissy Encounter Details Date Type Department Care Team (Late st Contact Info) Description 03/11/2025 Results Follow-Up ARJUN Morataya OBGYN [address] [facility] [address] [place] [address] Glenna Butler LPN [address] [place] [address] US OB ANATOMY Social History [...] PM EDT Routine [facility] [place] [facility] [address] [facility] [place] [address] Rossana Ramos PA [address] [facility] [place] [address] documented as of this encounter Visit Diagnoses Not on filedocumented in this encounter Care Teams Thread Winder Relationship Specialty Start Date End Date Unallocated, [place] [address] PCP - General Family Medicine 08/03/24 documented as of this encounter
--- OUTSIDE RECORDS SUMMARY | 2025-06-01 10:55 | XMS_ITS | Encounter Summary ---
Author Organization [facility] Address [address] [place] [address] Care Team Providers Care Aeronautical Design Engineer Name Role Phone Vaishali Zapata MD Primary Care Provider Bipin cheng Unallocated, Noms Provider Primary Care Provi krissy Encounter Details Date Type Department Care Team (Late st Contact Info) Description 08/02/2024 Abstract [facility] PANG [address] [facility] [place] [place] [address] Jose Rodriguez DO [address] [facility] [address] Josué Morataya, [facility] Social History Tobacco [...] 3:00 PM EDT Routine [facility] [address] [facility] [place] [place] [address] Rossana Ramos PA [address] [facility] [place] [address] documented as of this encounter Visit Diagnoses Not on filedocumented in this encounter Care Teams Aeronautical Design Engineer Relationship Specialty Start Date End Date Vaishali Zapata MD [address] [place] [address] PCP - General Family Medicine 02/04/23 08/02/24 Unallocated, Noms Provider, [address] [place] [address] PCP - General Family Medicine 08/03/24 documented as of this encounter
--- OUTSIDE RECORDS SUMMARY | 2025-06-01 10:55 | XMS_ITS | Encounter Summary ---
Author Organization [facility] Address [address] [place] [address] Care Team Providers Care Rheologist Name Role Phone Unallocated, Noms Provider Primary Care Provi krissy Encounter Details Date Type Department Care Team (Late st Contact Info) Description 05/18/2025 Clinisync Result Encounter [facility] External Department Unsolicited Jose Rodriguez DO [address] [facility] [address] Josué Morataya, [facility]11 Social History Tobacco Use Types Packs/Day Years [...] PM EDT Routine [facility] [address] [facility] [place] [id number] Rossana Ramos PA [address] [facility] [place] [address] documented as of [...] EDT Jose Michael DO [facility] ALL URIC ACID (05/18/2025 11:03 AM EDT) URIC ACID 4.0 2.6 - 6.0 mg/dL TB 05/18/2025 11:0 3 AM EDT 05/18/2025 11:08 AM EDT Narrative [facility] - 05/18/2025 11:50 AM EDT Jose Michael DO CLINISYNC Final Result Performing Organization Address [facility] Co de Phone Number [facility] * (ABNORMAL) TBH CREATININE (05/18/2025 11:03 AM EDT) CREATININE 0.38(L) 0.55 - 1.02 mg/dL TBH TBH EGFR-AF TUVALUAN >60 >=60 mL/min/1.7 3m 2 TBH TBH EGFR-NON AF TUVALUAN >60 >=60 mL/min/1.7 3m 2 TBH 05/18/2025 11:0 3 AM EDT 05/18/2025 11:08 AM EDT Narrative [facility] - 05/18/2025 11:50 AM EDT Jose Michael DO CL[facility]YNC Final Result Performing Organization Address [facility]/ZIP Co de Phone Number [facility] * ALL BUN (05/18/2025 11:03 AM EDT) BLOOD UREA NITROGEN 9.0 7.0 - 18.0 mg/dL TBH 05/18/2025 11:0 3 AM EDT 05/18/2025 11:08 AM EDT Narrative [facility] - 05/18/2025 11:50 AM EDT Jose Michael DO CL[facility] Final Result [facility] * [facility] APTT (05/18/2025 11:03 AM EDT) PARTIAL THROMBOPLASTIN TIME 25.6 22.3 - 36.2 sec TBH 05/18/2025 11:0 3 AM EDT 05/18/2025 11:08 AM EDT Narrative [facility] - 05/18/2025 11:29 AM EDT Jose Michael DO CL[facility]ISYNC Final Result [facility] * [facility] PROTHROMBIN TIME INR [...] DO CLINISYNC Final Result Performing Organization Address [facility]/ZIP Co de Phone Number [facility] * (ABNORMAL) ALL CBC WITH [...] on filedocumented in this encounter Care Teams Rheologist Relationship Specialty Start Date End Date Unallocated, Noms Provider, MD [place]uhair [place], [place] [phone] PCP - General Family Medicine 08/03/24 documented as of this encounter
--- OUTSIDE RECORDS SUMMARY | 2025-06-01 10:55 | XMS_ITS | Encounter Summary ---
Author Organization [facility] Address [address] [place] [address] Care Team Providers Care Seed Laboratory Assistant Name Role Phone Unallocated, Noms Provider Primary Care Provi krissy Encounter Details Date Type Department Care Team (Late st Contact Info) Description 08/10/2024 Abstract ARJUN PANG [address] [place] [place] [address] Jose Rodriguez DO [address] [facility] [address] Josué Morataya, [facility] Social History Tobacco [...] 3:00 PM EDT Routine ARJUN PANG [address] [place] [place] [address] Rossana Ramos PA [address] [facility] [address] [place], [facility] documented as of this encounter Visit Diagnoses Not on filedocumented in this encounter Care Teams Seed Laboratory Assistant Relationship Specialty Start Date End Date Unallocated, Noms Provider, [place] [address] PCP - General Family Medicine 08/03/24 documented as of this encounter
--- OUTSIDE RECORDS SUMMARY | 2025-06-01 10:55 | XMS_ITS | Encounter Summary ---
Author Organization [facility] tem Address [id number] [address] [place] [address] Care Team Providers Care Cinder Block Mason Name Role Phone Unavailable Primary Care Provider Unavailabl e Encounter Details Date Type Department Care Team (Late Contact Info) Description 05/31/2025 Orders Only Maternal- Medicine at [facility] [address] [place] [address] Ref Prov, [place] [address] Social History Tobacco Use Types Packs/Day Years [...] Description 06/04/2025 1:00 PM EDT Hospital Encounter [facility] - Ultrasound [address] [place] [id number] Jose Rodriguez, DO [address] [facility] [address] [place] [address] documented as of this encounter Visit Diagnoses Not on filedocumented in this encounter
--- OUTSIDE RECORDS SUMMARY | 2025-06-01 10:55 | XMS_ITS | Encounter Summary ---
Author Organization [facility] Address [address] [place] [address] Care Team Providers Care Screw Machine Tender Name Role Phone Vaishali Zapata MD Primary Care Provider Bipin cheng Unallocated, Noms Provider Primary Care Provi krissy Encounter Details Date Type Department Care Team (Late st Contact Info) Description 06/28/2024 Abstract ARJUN PANG [address] [place] [address] Jose Rodriguez DO [address] [facility] [address] Josué Morataya, [facility] [...] 3:00 PM EDT Routine ARJUN PANG [address] [place] [address] Rossana Ramos PA [address] [facility] [place] [address] documented as of this encounter Visit Diagnoses Not on filedocumented in this encounter Care Teams Screw Machine Tender Relationship Specialty Start Date End Date Vaishali Zapata MD [address] [place] [address] PCP - General Family Medicine 02/04/23 08/02/24 Unallocated, Noms Provider, [address] [place] [address] PCP - General Family Medicine 08/03/24 documented as of this encounter
--- OUTSIDE RECORDS SUMMARY | 2025-06-01 10:55 | XMS_ITS | Encounter Summary ---
Author Organization [facility] Address [address] [place] [address] Care Team Providers Care Loop Tender Name Role Phone Vaishali Zapata MD Primary Care Provider Bipin cheng Unallocated, Noms Provider Primary Care Provi krissy Encounter Details Date Type Department Care Team (Late st Contact Info) Description 06/29/2024 Abstract ARJUN PANG [address] [facility] [place] [address] Jose Rodriguez DO [address] [facility] [address] Josué Morataya, [facility] Social History Tobacco Use Types Packs/Day Years [...] 3:00 PM EDT Routine ARJUN PANG [address] [facility] [place] [address] Rossana Ramos PA [address] [facility] [place] [address] documented as of this encounter Visit Diagnoses Not on filedocumented in this encounter Care Teams Loop Tender Relationship Specialty Start Date End Date Vaishali Zapata MD [address] [place] [address] PCP - General Family Medicine 02/04/23 08/02/24 Unallocated, Noms Provider, [address] [place] [address] PCP - General Family Medicine 08/03/24 documented as of this encounter
--- OUTSIDE RECORDS SUMMARY | 2025-06-01 10:55 | XMS_ITS | Encounter Summary ---
Author Organization [facility] Address [address] [place] [address] Care Team Providers Care Newspaper Subscription Solicitor Name Role Phone Unallocated, Noms Provider Primary Care Provi krissy Encounter Details Date Type Department Care Team (Late st Contact Info) Description 08/10/2024 Abstract ARJUN PANG [address] [facility] [place] [address] Jose Rodriguez DO [address] [facility] [address] Josué [place]aya, [id number] Social History Tobacco Use Types Packs/Day Years [...] 3:00 PM EDT Routine ARJUN PANG [address] [facility] [place] [address] Rossana Ramos PA [address] [facility] [address] [place], [id number] documented as of this encounter Visit Diagnoses Not on filedocumented in this encounter Care Teams Newspaper Subscription Solicitor Relationship Specialty Start Date End Date Unallocated, Noms Provider, [place] [address] PCP - General Family Medicine 08/03/24 documented as of this encounter
--- OUTSIDE RECORDS SUMMARY | 2025-06-01 10:56 | XMS_ITS | Encounter Summary ---
Author Organization [facility] Address [address] [place] [address] Care Team Providers Care Egg Tester Name Role Phone Unallocated, Noms Provider Primary Care Provi krissy Encounter Details Date Type Department Care Team (Late st Contact Info) Description 03/06/2025 Orders Only ARJUN PANG [address] [facility] [place] [address] Kavitha Almanza MA Social History Tobacco [...] 3:00 PM EDT Routine NOMMay PANG [address] [facility] [place] [address] Rossana Ramos PA [address] [facility] [address] [place], [place] [id number] documented as of this encounter Procedures Procedure Name Priority Date/Time Associated Diagnosis Comments PAP SMEAR Routine 02/20/2025 12:00 AM EDT documented in this encounter Results * Pap Smear (02/20/2025 12:00 AM EDT) Swab Cervical swab / Unknown Rossana [facility] ORDERABLES Final Re sult EXTERNAL LAB documented in this encounter Visit Diagnoses Not on filedocumented in this encounter Care Teams Egg Tester Relationship Specialty Start Date End Date Unallocated, Noms Provider, [address] [place] [address] PCP - General Family Medicine 08/03/24 documented as of this encounter
--- OUTSIDE RECORDS SUMMARY | 2025-06-01 10:56 | XMS_ITS | Encounter Summary ---
Author Organization [facility] Address [address] [place] [address] Care Team Providers Care University Manager Name Role Phone Unallocated, Noms Provider Primary Care Provi krissy Encounter Details Date Type Department Care Team (Late st Contact Info) Description 05/28/2025 Bamboo flowsheet ARJUN PANG [address] [place] [address] [facility] [address] Josué Morataya, [facility] [address] Social History Tobacco Use Types Packs/Day Years [...] 3:00 PM EDT Routine NOMMay PANG [address] [place] [address] Rossana Ramos PA [address] [place] [address] [place] [address] documented as of this encounter Visit Diagnoses Not on filedocumented in this encounter Care Teams University Manager Relationship Specialty Start Date End Date Unallocated, Noms Provider, [place] [address] PCP - General Family Medicine 08/03/24 documented as of this encounter
--- OUTSIDE RECORDS SUMMARY | 2025-06-01 10:56 | XMS_ITS | CCD ---
Author Organization [facility] Care Team Providers Care Director Facilities Maintenance Name Role Phone MICHAEL ., DR MANN [...] DOMINIQUE Primary Care Unavailable KARASIK ., DR ANOTINE Consulting Unavailabl e WEST, DR COCO Danielle [...] Unavailable MISC, DR DOMINIQUE Primary Care Unavailable MODEL, DR COCO Danielle Consulting Unavailable MICHAEL ., DR MANN Consulting Unavailable MICHAEL ., DR MANN Admitting Unavailable MICHAEL ., DR MANN Attending Unavailable MISC, DR DOMINIQUE Primary Care Unavailable MICHAEL ., DR MANN Consulting Unavailable MICHAEL ., DR MANN Admitting Unavailable MICHAEL ., DR MANN Attending Unavailable MISC, DR DOMINIQUE Primary Care Unavailable MODEL, DR COCO Danielle Consulting Unavailable MICHAEL ., [...] Jennifer Huston Unavailable JEFFERY Huston Attending Provider [phone] Vaishali Zapata MD Primary Care Provider Unavai lable NO FAMILY, PHYSICIAN Primary Care Provider Unava ilable Michael DOJose Attending Provider Unallocated Arjun GREENBERG Provider Primary [...] JOSE Attending Unavailable MICHAEL, JOSE Attending Unavailable MICHAEL, OJSE Attending Unavailable Medications Current Medications Medication Drug [...] Glucose Monitoring Suppl (D-Care Glucometer) w/Device kit (15 sources) Start: 05-08-2025 End: 05-08-2026 Blood Glucose Monitoring Suppl (D-Care Glucometer) w/Device kit Indications: Gestational diabetes mellitus (GDM), antepartum, gestational diabetes method of control unspecified (HHS-HCC) , Elevated glucose tolerance test 1 kit Daily Use four times daily to check FSBS. In the morning prior to breakfast & 1 hour after each meal for a total of 4times daily. 1 kit 05/08/2025 05/08/2026 Active isopropyl alcohol 0.7 ml/ml medicated pad (15 sources) Start: 05-08-2025 Alcohol Swabs (Alcohol Prep [...] source) Active 115/iron/folic acid ( 19 ORAL) (5 sources) 115/iron/folic acid ( 19 ORAL) Take by mouth. Active progesterone 100 mg oral capsule (20 sources) Progesterone take 1 capsule by mouth at bedtime progesterone (PROMETRIUM) 100 mg capsule Take 1 capsule (100 mg total) by mouth in the morning and at bedtime. Active End: 05-28-2025 progesterone (Endometrin) 10 0 MG vaginal insert Insert 100 mg into the vagina in the morning and 100 mg before bedtime. 05/28/2025 Discontinued (Therapy completed) Progesterone 200 MG supposit ory (2 sources) [...] tolerance complicating ; childbirth; or the puerperium (17 sources) Gestational diabetes mellitus in childbirth, unspecified [...] Hypertension complicating ; childbirth and the puerperium (10 sources) -induced hypertension; Translations: [Gestational [-induced] hypertension without significant proteinuria, unspecified trimester] Onset: 05-28-2025 04-25-2025 Episodic Immunizations and screening for infectious [...] [31 weeks gestation of ] 05-22-2025 Episodic Residual codes; unclassified (2 sources) Gestation period, 32 weeks; Translations: [32 weeks gestation of ] 05-28-2025 Episodic Spontaneous (2 sources) Miscarriage; Translations: [Complete [...] Range Facility Urinalysis macro (dipstick) panel (U)on 05-28-2025 Bilirubin, UA Negative Negative - 4(70) +++ mg/dL [facility] Blood, UA Negative Negative - 50 Jason/mcL [facility] Clarity, UA Clear [facility] re Color, UA Yellow [facility] Glucose, UA Negative Negative - 1999(110) ++++ mg/dL [facility] Interpretation and review of laboratory results Normal [facility] Ketones, UA Negative Negative - 160(16) ++++ mg/dL [facility] Leukocytes, UA Negative Negative - 500+++ Carlos/mcL [facility] Nitrite, UA Negative Negative - Positive [facility] pH, UA 6.5 5 - 9 [facility] e Protein, UA Negative Negative - 1999(20) ++++ mg/dL [facility] Spec Grav, UA 1.005 1 - 1.03 [facility] Urobilinogen, UA 1.0 0.2 - 12 mg[facility]dL [facility] B[facility] W NON-STRESS on 05-25-2025 [place] [address] Ultrasound Report Signed Patient: VIMAL FUNES MR#: [id number] : 2000 Acct:[id number] Age/Sex: 25 / F ADM Date: 05/25/25 Loc: US Attending Dr: Rossana Ramos Ordering Physician: Rossana Ramos Date of Service: 05/25/25 Procedure(s): US OB BPP w non-stress Accession Number(s): [id number] cc: Rossana Ramos; JENNIFER SEE [address] [address] Patient Name: VIMAL FUNES MRN: [id number]:[id number] date: 2000 Sex: F Assigned Patient Location: [facility] Current Patient Location: Accession/Order Number: [id number] Exam Date: 05/25/2025 08:21 Report Date: 05/25/2025 11:13 At the request of: ROSSANA RAMOS Procedure: [...] Acharya M.D. 05/25/2025 11:13 AM [facility] Electronically authenticated by: [id number] Y Date: 05/25/2025 11:13 Dictated By: Heriberto Acharya M.D. Signed By: 05/25/25 1116 DD/ 1113 TD/TT: Director Presales: [facility] Radiology, Radiologist, - 05/25/2025 [place] [address] Ultrasound Report Signed Patient: VIMAL FUNES MR#: [id number] : 2000 Acct:[id number] Age/Sex: 25 / F ADM Date: 05/25/25 Loc: US Attending Dr: Rossana Ramos Ordering Physician: Rossana Ramos Date of Service: 05/25/25 Procedure(s): US OB BPP w non-stress Accession Number(s): [id number] cc: Rossana Ramos; JENNIFER SEE [place] [id number] Patient Name: VIMAL FUNES MRN: [facility]:[id number] date: 2000 Sex: F Assigned Patient Location: [facility] Current Patient Location: Accession/Order Number: [id number] Exam Date: 05/25/2025 08:21 Report Date: 05/25/2025 11:13 At the request of: ROSSANA RAMOS Procedure: [...] Acharya M.D. 05/25/2025 11:13 AM Dictation Location: [employer] Electronically authenticated by: [id number] Y Date: 05/25/2025 11:13 Dictated By: Heriberto Acharya M.D. Signed By: 05/25/25 1116 DD/ 1113 TD/TT: Director Presales: [facility] Radiology Study observation (narrative) [facility] US OB BPP W NON-STRESS Ordered By: Radiologist Radiology on 05-25-2025 [facility] [employer] Work Phone: Urinalysis macro (dipstick) panel (U)on 05-22-2025 Bilirubin, UA Negative Negative - 4(70) +++ mg/dL [facility] Blood, UA Negative Negative - 50 Jason/mcL [facility] Clarity, UA Clear [facility] re Color, UA Yellow [facility] Glucose, UA Negative Negative - 1999(110) ++++ mg/dL [facility] Interpretation and review of laboratory results Normal [facility] Ketones, UA Negative Negative - 160(16) ++++ mg/dL [facility] Leukocytes, UA Negative Negative - 500+++ Carlos/mcL [facility] Nitrite, UA Negative Negative - Positive [facility] pH, UA 6 5 - 9 [facility] [employer] Protein, UA Negative Negative - 1999(20) ++++ mg/dL [facility] Spec Grav, UA 1.01 1 - 1.03 [facility] Urobilinogen, UA 0.2 0.2 - 12 mg/dL [facility] TOTAL PROTEIN 24 HOUR UR INEon 05-20-2025 Interpretation and review of laboratory results Abnormal [facility] Protein (U) [Mass/Vol] 6.7 mg/dL NINF - 11.9 mg/dL [facility] TB TOTAL PROTEIN 24 HOUR URINE 194.3 High [facility] TOTAL VOLUME 24 HOUR URINE 2900 mL/24hr [facility] ALL CBC WITH AUTO DIFFon BASOPHILS ABSOLUTE AUTO 0 [facility] Basophils/100 WBC (Bld) 0.1 % Low 0.2 - 2.0 % [facility] Eosinophils/100 WBC (Bld) 1.7 % 0.9 - 7.0 % [facility] Erythrocyte distribution width (RBC) [Ratio] 12.7 % 11.0 - 15.0 % [facility] Hematocrit (Bld) [Volume fraction] 38.1 % 36.0 - 48.0 % [facility] Hemoglobin (Bld) [Mass/Vol] 13.3 g/dL 12.0 - 16.0 g/dL [facility] IMMATURE GRANULOCYTES ABS AUTO 0.06 High [facility] Immature granulocytes/100 WBC (Bld) 0.4 % 0.0 - 0.5 % [facility] Interpretation and review of laboratory results Abnormal [facility] LYMPHOCYTES ABSOLUTE AUTO 1.4 [facility] Lymphocytes/100 WBC (Bld) 9 % Low 20.5 - 60.0 % [facility] MCH (RBC) [Entitic mass] 31.9 pg 26.7 - 34.0 pg [facility] MCHC (RBC) [Mass/Vol] 34.9 g/dL 29.9 - 35.2 g/dL [facility] MCV (RBC) [Entitic vol] 91.4 fL 81.0 - 99.0 fL [facility] MONOCYTES ABSOLUTE AUTO 0.7 [facility] Monocytes/100 WBC (Bld) 4.7 % 1.7 - 12.0 % [facility] NEUTROPHILS ABSOLUTE AUTO 12.6 High [facility] Neutrophils/100 WBC (Bld) 84.1 % High 43.0 - 75.0 % [facility] Platelet mean volume (Bld) [Entitic vol] 11.2 fL 9.5 - 13.5 fL [facility] TBH EO # 0.3 [facility] TBH PLT 223 [facility] RBC 4.17 Low [facility] WBC 15 High [facility] US OB BPP W NON-STRESS on 05-18-[address] [address] Ultrasound Report Signed Patient: VIMAL FUNES MR#: [id number] : 2000 Acct:[id number] Age/Sex: 25 / F ADM Date: 05/18/25 Loc: US Attending Dr: Rossana Ramos Ordering Physician: Rossana Ramos Date of Service: 05/18/25 Procedure(s): US OB BPP w non-stress Accession Number(s): [id number] cc: Rossana Ramos; JENNIFER SEE [address] [address] Patient Name: VIMAL FUNES MRN: [facility]:[id number] date: 2000 Sex: F Assigned Patient Location: [facility] Current Patient Location: Accession/Order Number: [id number] Exam Date: 05/18/2025 11:16 Report Date: 05/18/2025 [...] Acharya M.D. 05/18/2025 5:08 PM Dictation Location: [place] [address] Electronically authenticated by: [id number] Y Date: 05/18/2025 17:08 Dictated By: Heriberto Acharya M.D. Signed By: 05/18/252016 DD/ 07 TD/TT: Director Presales: [facility] Radiology, Radiologist, - 05/18/[address] [address] Ultrasound Report Signed Patient: VIMAL FUNES MR#: [id number] : 2000 Acct:[id number] Age/Sex: 25 / F ADM Date: 05/18/25 Loc: US Attending Dr: Rossana Ramos Ordering Physician: Rossana Ramos Date of Service: 05/18/25 Procedure(s): US OB BPP w non-stress Accession Number(s): [id number] cc: Rossana Ramos; JENNIFER SEE [place] [address] Patient Name: VIMAL FUNES MRN: [id number]:[id number] date: 2000 Sex: F Assigned Patient Location: [facility] Current Patient Location: Accession/Order Number: [id number] Exam Date: 05/18/2025 11:16 Report Date: 05/18/2025 [...] Acharya M.D. 05/18/2025 5:08 PM Dictation Location: [place] [address] Electronically authenticated by: [id number] Y Date: 05/18/2025 17:08 Dictated By: Heriberto Acharya M.D. Signed By: 05/18/252016 DD/ 07 TD/TT: Director Presales: [facility] Radiology Study observation (narrative) [facility] US OB BPP W NON-STRESS Ordered By: Radiologist Radiology on 05-18-2025 [facility] [employer] Work Phone: Glucose random or fasting- P OCTOrdered By: Sheridan Smallwood on 05-13-2025 External Glucose Fasting Or Random (Fbs) 80 [facility] US OB BPP W NON-STRESS on 05-11-[address] [address] Ultrasound Report Signed Patient: VIMAL FUNES MR#: [id number] : 2000 Acct:[id number] Age/Sex: 25 / F ADM Date: 05/11/25 Loc: [facility] 253-[address]: Rossana Ramos Ordering Physician: Rossana Ramos Date of Service: 05/11/25 Procedure(s): US OB BPP w non-stress Accession Number(s): [id number] cc: Rossana Ramos; JENNIFER SEE [address] [address] Patient Name: VIMAL FUNES MRN: [id number]:[id number] date: 2000 Sex: F Assigned Patient Location: [facility] Current Patient Location: [facility] Accession/Order Number: [id number] Exam Date: 05/11/2025 12:01 Report Date: 05/11/2025 12:02 At the request of: ROSSANA RAMOS Procedure: US OB BPP w non-stress Biophysical profile. Reason for exam: Gestational diabetes COMPARISON: 05/04/2025 TECHNIQUE: Transabdominal imaging of the gravid uterus was obtained. FINDINGS: The nursery teacher reports a BPP of 8 out of 8. DANYA is normal at 11.9 cm. heart rate 138 bpm. US/US OB BPP w non-stress IMPRESSION: BPP 8 out of 8. Impression dictated by: Bulmaro Arias Jr., D.O. 05/11/2025 12:02 PM Dictation Location: [facility] Electronically authenticated by: [id number] Y Date: 05/11/2025 12:02 Dictated By: Bulmaro Arias M.D. Signed By: 05/11/25 1204 DD/ 120 TD/TT: Director Presales: [facility] Radiology, Radiologist, - 05/11/2025 [place] [address] Ultrasound Report Signed Patient: VIMAL FUNES MR#: [id number] : 2000 Acct:[id number] Age/Sex: 25 / F ADM Date: 05/11/25 Loc: [facility] 253-[address]: Rossana Ramos Ordering Physician: Rossana Ramos Date of Service: 05/11/25 Procedure(s): US OB BPP w non-stress Accession Number(s): [id number] cc: Rossana Ramos; JENNIFER SEE [place] [address] Patient Name: VIMAL FUNES MRN: [facility]:[id number] date: 2000 Sex: F Assigned Patient Location: [facility] Current Patient Location: [facility] Accession/Order Number: [id number] Exam Date: 05/11/2025 12:01 Report Date: 05/11/2025 12:02 At the request of: ROSSANA RAMOS Procedure: US OB BPP w non-stress Biophysical profile. Reason for exam: Gestational diabetes COMPARISON: 05/04/2025 TECHNIQUE: Transabdominal imaging of the gravid uterus was obtained. FINDINGS: The nursery teacher reports a BPP of 8 out of 8. DANYA is normal at 11.9 cm. heart rate 138 bpm. US/US OB BPP w non-stress IMPRESSION: BPP 8 out of 8. Impression dictated by: Bulmaro Arias Jr., D.O. 05/11/2025 12:02 PM Dictation Location: [place] [address] Electronically authenticated by: [id number] Y Date: 05/11/2025 12:02 Dictated By: Bulmaro Arias M.D. Signed By: 05/11/251203 DD/ 01 TD/TT: Director Presales: [facility] Radiology Study observation (narrative) [facility] US OB BPP W NON-STRESS Ordered By: Radiologist Radiology on 05-11-2025 [facility] Work Phone: [facility] TOTAL PROTEIN 24 HOUR UR INEon 05-06-2025 TOTAL PROTEIN URINE RANDOM <6.0 NINF - 11.9 mg/dL [facility] TOTAL VOLUME 24 HOUR URINE 3700 mL/24hr [facility] 2nd hr Glucose Tolerance 100 gm loadon 05-04-2025 Glucose Tolerance Test 2 Hour 186 [facility] ALL CBC WITH AUTO DIFFon BASOPHILS ABSOLUTE AUTO 0 [facility] Basophils/100 WBC (Bld) 0.2 % 0.2 - 2.0 % [facility] Eosinophils/100 WBC (Bld) 2.6 % 0.9 - 7.0 % [facility] Erythrocyte distribution width (RBC) [Ratio] 12.7 % 11.0 - 15.0 % [facility] Hematocrit (Bld) [Volume fraction] 39.5 % 36.0 - 48.0 % [facility] Hemoglobin (Bld) [Mass/Vol] 13.7 g/dL 12.0 - 16.0 g/dL [facility] IMMATURE GRANULOCYTES ABS AUTO 0.05 High [facility] Immature granulocytes/100 WBC (Bld) 0.4 % 0.0 - 0.5 % [facility] Interpretation and review of laboratory results Abnormal [facility] LYMPHOCYTES ABSOLUTE AUTO 1.6 [facility] Lymphocytes/100 WBC (Bld) 12.6 % Low 20.5 - 60.0 % [facility] MCH (RBC) [Entitic mass] 31.9 pg 26.7 - 34.0 pg [facility] MCHC (RBC) [Mass/Vol] 34.7 g/dL 29.9 - 35.2 g/dL [facility] MCV (RBC) [Entitic vol] 92.1 fL 81.0 - 99.0 fL [facility] MONOCYTES ABSOLUTE AUTO 0.6 [facility] Monocytes/100 WBC (Bld) 5 % 1.7 - 12.0 % [facility] NEUTROPHILS ABSOLUTE AUTO 9.9 High [facility] Neutrophils/100 WBC (Bld) 79.2 % High 43.0 - 75.0 % [facility] Platelet mean volume (Bld) [Entitic vol] 11 fL 9.5 - 13.5 fL [facility] TBH EO # 0.3 [facility] TBH PLT 226 [facility] RBC 4.29 [facility] WBC 12.5 High [facility] Glucose tolerance, 1 houron 05-04-2025 Glucose Tolerance Test 1 Hour 234 [facility] Glucose tolerance, 3 hourson 05-04-2025 Glucose Tolerance Test 3 Hour 133 [facility] Glucose, tolerance fastingon 05-04-2025 Glucose Tolerance Test Fasting 108 [facility] No Panel Informationon 05-04 [facility] US OB BPP W NON-STRESS on 05-04-2025 [place] [address] Ultrasound Report Signed Patient: VIMAL FUNES MR#: [id number] : 2000 Acct:[id number] Age/Sex: 25 / F ADM Date: 05/04/25 Loc: [place] [address]: Rossana Ramos Ordering Physician: Rossana Ramos Date of Service: 05/04/25 Procedure(s): US OB BPP w non-stress Accession Number(s): [id number] cc: Rossana Ramos; JENNIFER SEE [place] [id number] Patient Name: VIMAL FUNES MRN: [id number]:[id number] date: 2000 Sex: F Assigned Patient Location: [facility] Current Patient Location: [facility] Accession/Order Number: [id number] Exam Date: 05/04/2025 12:08 Report Date: 05/04/2025 12:09 At the request of: ROSSANA RAMOS Procedure: US OB BPP w non-stress Biophysical profile. Reason for exam: Gestational diabetes COMPARISON: None TECHNIQUE: Transabdominal imaging of the gravid uterus was obtained. FINDINGS: The nursery teacher reports a BPP of 8 out of 8. DANYA is normal at 12.4 cm. heart rate 150 bpm. US/US OB BPP w non-stress IMPRESSION: BPP 8 out of 8. Impression dictated by: Bulmaro Arias Jr. DDarline 05/04/2025 12:09 PM Dictation Location: [facility] Electronically authenticated by: [id number] Y Date: 05/04/2025 12:09 Dictated By: Bulmaro Arias M.D. Signed By: 05/04/251211 DD/ 120 TD/TT: Director Presales: [facility] Radiology, Radiologist, - 05/04/2025 [place] [address] Ultrasound Report Signed Patient: VIMAL FUNES MR#: [id number] : 2000 Acct:[id number] Age/Sex: 25 / F ADM Date: 05/04/25 Loc: [facility] [address]: Rossana Ramos Ordering Physician: Rossana Ramos Date of Service: 05/04/25 Procedure(s): US OB BPP w non-stress Accession Number(s): [id number] cc: Rossana Ramos; JENNIFER SEE [place] [address] Patient Name: VIMAL FUNES MRN: [facility]:[id number] date: 2000 Sex: F Assigned Patient Location: [facility] Current Patient Location: [facility] Accession/Order Number: [id number] Exam Date: 05/04/2025 12:08 Report Date: 05/04/2025 12:09 At the request of: ROSSANA RAMOS Procedure: US OB BPP w non-stress Biophysical profile. Reason for exam: Gestational diabetes COMPARISON: None TECHNIQUE: Transabdominal imaging of the gravid uterus was obtained. FINDINGS: The nursery teacher reports a BPP of 8 out of 8. DANYA is normal at 12.4 cm. heart rate 150 bpm. US/US OB BPP w non-stress IMPRESSION: BPP 8 out of 8. Impression dictated by: Bulmaro Airas Jr., D.O. 05/04/2025 12:09 PM Dictation Location: [facility] Electronically authenticated by: [id number] Y Date: 05/04/2025 12:09 Dictated By: Bulmaro Arias M.D. Signed By: 05/04/251211 DD/ 1209 TD/TT: Director Presales: [facility] [employer] Radiology Study observation (narrative) [facility] US OB BPP W NON-STRESS Ordered By: Radiologist Radiology on 05-04-2025 [employer] Work Phone: US OB GROWTHon 05-04-[address] [address] Ultrasound Report Signed Patient: VIMAL FUNES MR#: [id number] : 2000 Acct:[id number] Age/Sex: 25 / F ADM Date: 05/04/25 Loc: [facility] 250-[address]: Rossana Ramos Ordering Physician: Rossana Ramos Date of Service: 05/04/25 Procedure(s): US OB growth Accession Number(s): [id number] cc: Rossana Ramos; JENNIFER SEE [address] [address] Patient Name: VIMAL FUNES MRN: [id number]:[id number] date: 2000 Sex: F Assigned Patient Location: [facility] Current Patient Location: [facility] Accession/Order Number: [id number] Exam Date: 05/04/2025 12:06 Report Date: 05/04/2025 [...] Jr., D.O. 05/04/2025 12:08 PM Dictation Location: [employer] Electronically authenticated by: [id number] Y Date: 05/04/2025 12:08 Dictated By: Bulmaro Arias M.D. Signed By: 05/04/25 1211 DD/ 1208 TD/TT: Director Presales: [facility] Radiology, Radiologist, - 05/04/2025 [place] [address] Ultrasound Report Signed Patient: VIMAL FUNES MR#: [id number] : 2000 Acct:[id number] Age/Sex: 25 / F ADM Date: 05/04/25 Loc: [facility] 250-[address]: Rossana Ramos Ordering Physician: Rossana Ramos Date of Service: 05/04/25 Procedure(s): US OB growth Accession Number(s): [id number] cc: Rossana Ramos; JENNIFER SEE [place] [address] Patient Name: VIMAL FUNES MRN: [facility]:[id number] date: 2000 Sex: F Assigned Patient Location: [facility] Current Patient Location: [facility] Accession/Order Number: [id number] Exam Date: 05/04/2025 12:06 Report Date: 05/04/2025 [...] Jr., D.O. 05/04/2025 12:08 PM Dictation Location: [employer] Electronically authenticated by: [id number] Y Date: 05/04/2025 12:08 Dictated By: Bulmaro Arias M.D. Signed By: 05/04/25 1211 DD/ 1208 TD/TT: Director Presales: [facility] Radiology Study observation (narrative) [facility] US OB GROWTHOrdered By: Jeimy kwanogwilly Radiology on 05-04-2025 [facility] Work Phone: Urinalysis macro (dipstick) panel (U)on 04-30-2025 Bilirubin, UA Negative Negative - 4(70) +++ mg/dL [facility] Blood, UA Negative Negative - 50 Jason/mcL [facility] Clarity, UA Clear [facility] re Color, UA Yellow [facility] Glucose, UA Positive Negative - 1999(110) ++++ mg/dL [facility] Interpretation and review of laboratory results Abnormal [facility] Ketones, UA Negative Negative - 160(16) ++++ mg/dL [facility] Leukocytes, UA Positive Negative - 500+++ Carlos/mcL [facility] Nitrite, UA Negative Negative - Positive [facility] pH, UA 6 5 - 9 [facility] e Protein, UA Negative Negative - 1999(20) ++++ mg/dL [facility] Spec Grav, UA 1.01 1 - 1.03 [facility] Urobilinogen, UA 1.0 0.2 - 12 mg/dL [facility] ALL CBC WITH AUTO DIFFon BASOPHILS ABSOLUTE AUTO 0 [facility] Basophils/100 WBC (Bld) 0.2 % 0.2 - 2.0 % [facility] Eosinophils/100 WBC (Bld) 2.2 % 0.9 - 7.0 % [facility] Erythrocyte distribution width (RBC) [Ratio] 12.9 % 11.0 - 15.0 % [facility] Hematocrit (Bld) [Volume fraction] 40 % 36.0 - 48.0 % [facility] Hemoglobin (Bld) [Mass/Vol] 13.6 g/dL 12.0 - 16.0 g/dL [facility] IMMATURE GRANULOCYTES ABS AUTO 0.04 High [facility] Immature granulocytes/100 WBC (Bld) 0.3 % 0.0 - 0.5 % [facility] Interpretation and review of laboratory results Abnormal [facility] LYMPHOCYTES ABSOLUTE AUTO 1.4 [facility] Lymphocytes/100 WBC (Bld) 10.8 % Low 20.5 - 60.0 % [facility] MCH (RBC) [Entitic mass] 31.7 pg 26.7 - 34.0 pg [facility] MCHC (RBC) [Mass/Vol] 34 g/dL 29.9 - 35.2 g/dL [facility] MCV (RBC) [Entitic vol] 93.2 fL 81.0 - 99.0 fL [facility] MONOCYTES ABSOLUTE AUTO 0.5 [facility] Monocytes/100 WBC (Bld) 4.3 % 1.7 - 12.0 % [facility] NEUTROPHILS ABSOLUTE AUTO 10.2 High [facility] Neutrophils/100 WBC (Bld) 82.2 % High 43.0 - 75.0 % [facility] Platelet mean volume (Bld) [Entitic vol] 10.6 fL 9.5 - 13.5 fL [facility] TBH EO # 0.3 [facility] TBH PLT 202 [facility] TBH RBC 4.29 [facility] TBH WBC 12.5 High [facility] Glucose 1h post 50g loadon 0 04-27-2025 Glucose, 1 hr PP 50GM dose 171 [facility] No Panel Informationon 04-27 [facility] Urinalysis macro (dipstick) panel (U)on 04-25-2025 Bilirubin, UA Negative Negative - 4(70) +++ mg/dL [facility] Blood, UA Negative Negative - 50 Jason/mcL [facility] Clarity, UA Clear [facility] re Color, UA Yellow [facility] Glucose, UA Negative Negative - 1999(110) ++++ mg/dL [facility] Interpretation and review of laboratory results Normal [facility] Ketones, UA Negative Negative - 160(16) ++++ mg/dL [facility] Leukocytes, UA Negative Negative - 500+++ Carlos/mcL [facility] Nitrite, UA Negative Negative - Positive [facility] pH, UA 6.5 5 - 9 [facility] Protein, UA Negative Negative - 1999(20) ++++ mg/dL [facility] Spec Grav, UA 1.01 1 - 1.03 [facility] Urobilinogen, UA 0.2 0.2 - 12 mg/dL [facility] Urinalysis macro (dipstick) panel (U)on 04-11-2025 Bilirubin, UA Negative Negative - 4(70) +++ mg/dL [facility] Blood, UA Negative Negative - 50 Jason/mcL [facility] Clarity, UA Clear [facility] re Color, UA Yellow [facility] Glucose, UA Negative Negative - 1999(110) ++++ mg/dL [facility] Interpretation and review of laboratory results Normal [facility] Ketones, UA Negative Negative - 160(16) ++++ mg/dL [facility] Leukocytes, UA Negative Negative - 500+++ Carlos/mcL [facility] Nitrite, UA Negative Negative - Positive [facility] pH, UA 7 5 - 9 [facility] Health[facility] e Protein, UA Negative Negative - 1999(20) ++++ mg/dL [facility] Spec Grav, UA 1.005 1 - 1.03 [facility] Urobilinogen, UA 1.0 0.2 - 12 mg/dL [facility] e US OB INCOMPLETE ANATOMYon 0 03-25-2025 [place] [address] Ultrasound Report Signed Patient: VIMAL FUNES MR#: [id number] : 2000 Acct:[id number] Age/Sex: 24 / F ADM Date: 03/23/25 Loc: US Attending Dr: Jose Rodriguez D.O. Ordering Physician: Jose Rodriguez D.O. Date of Service: 03/23/25 Procedure(s): US OB incomplete anatomy Accession Number(s): [id number] cc: JENNIFER SEE ; Jose Rodriguez D.O. [place] [id number] Patient Name: VIMAL FUNES MRN: [id number]:[id number] date: 2000 Sex: F Assigned Patient Location: US Current Patient Location: US Accession/Order Number: [id number] Exam Date: 03/25/2025 08:23 Report Date: 03/25/2025 [...] Brown M.D. 03/25/2025 8:25 AM Dictation Location: [place] [address] Electronically authenticated by: [id number] Y Date: 03/25/2025 08:25 Dictated By: Meghana Brown M.D. Signed By: 03/25/25826 DD/ 4 TD/TT: Director Presales: [facility] Radiology, Radiologist, MD - 03/25/2025 [place] [address] Ultrasound Report Signed Patient: VIMAL FUNES MR#: [id number] : 2000 Acct:[id number] Age/Sex: 24 / F ADM Date: 03/23/25 Loc: US Attending Dr: Jose Rodriguez D.O. Ordering Physician: Jose Rodriguez D.O. Date of Service: 03/23/25 Procedure(s): US OB incomplete anatomy Accession Number(s): [id number] cc: JENNIFER SEE ; Jose Rodriguez D.O. [place] [id number] Patient Name: VIMAL FUNES MRN: [facility]:[id number] date: 2000 Sex: F Assigned Patient Location: US Current Patient Location: US Accession/Order Number: [id number] Exam Date: 03/25/2025 08:23 Report Date: 03/25/2025 [...] Brown M.D. 03/25/2025 8:25 AM Dictation Location: [place] [address] Electronically authenticated by: [id number] Y Date: 03/25/2025 08:25 Dictated By: Meghana Brown M.D. Signed By: 03/25/25826 DD/ 4 TD/TT: Director Presales: [facility] Radiology Study observation (narrative) [facility] US OB INCOMPLETE ANATOMYOrde red By: Radiologist Radiology on 03-25-2025 [facility]: Urinalysis macro (dipstick) panel (U)on 03-14-2025 Bilirubin, UA Negative Negative - 4(70) +++ mg/dL [facility] Blood, UA Negative Negative - 50 Jason/mcL [facility] Clarity, UA Clear [facility] re Color, UA Yellow [facility] [employer] Glucose, UA Negative Negative - 1999(110) ++++ mg/dL [facility] Interpretation and review of laboratory results Normal [facility] Ketones, UA Negative Negative - 160(16) ++++ mg/dL [facility] Leukocytes, UA Negative Negative - 500+++ Carlos/mcL [facility] Nitrite, UA Negative Negative - Positive [facility] pH, UA 7 5 - 9 [facility] [employer] Protein, UA Negative Negative - 2000(20) ++++ mg/dL [facility] Spec Grav, UA 1.01 1 - 1.03 [facility] Urobilinogen, UA 0.2 0.2 - 12 mg/dL [facility] No Panel InformationOrdered By: Radiologist Radiology on 03-08-2025 [employer] Work Phone: No Panel Informationon 03-08 Radiology Study observation (narrative) [facility] US OB ANATOMYon 03-08-[address] [address] Ultrasound Report Signed Patient: VIMAL FUNES MR#: [id number] : 2000 Acct:[id number] Age/Sex: 24 / F ADM Date: 03/08/25 Loc: US Attending Dr: Jose Rodriguez D.O. Ordering Physician: Jose Rodriguez D.O. Date of Service: 03/08/25 Procedure(s): US OB anatomy Accession Number(s): [id number] cc: JENNIFER SEE ; Jose Rodriguez D.O. [address] [address] Patient Name: VIMAL FUNES MRN: [id number] date: 2000 Sex: F Assigned Patient Location: Current Patient Location: US Accession/Order Number: [id number] Exam Date: 03/08/2025 20:31 Report Date: 03/08/2025 [...] 03/08/2025 8:36 PM Dictation Location: [place] [address] Electronically authenticated by: [id number] Y Date: 03/08/2025 20:36 Dictated By: Shivam Knapp D.O. Signed By: 03/08/252037 DD/ 35 TD/TT: Director Presales: [facility] Radiology, Radiologist, MD - 03/08/2025 [place] [address] Ultrasound Report Signed Patient: VIMAL FUNES MR#: [id number] : 2000 Acct:[id number] Age/Sex: 24 / F ADM Date: 03/08/25 Loc: US Attending Dr: Jose Rodriguez D.O. Ordering Physician: Jose Rodriguez D.O. Date of Service: 03/08/25 Procedure(s): US OB anatomy Accession Number(s): [id number] cc: JENNIFER SEE ; Jose Rodriguez D.O. [place] [id number] Patient Name: VIMAL FUNES MRN: [facility]:[id number] date: 2000 Sex: F Assigned Patient Location: US Current Patient Location: US Accession/Order Number: [id number] Exam Date: 03/08/2025 20:31 Report Date: 03/08/2025 [...] Knapp M.D. 03/08/2025 8:36 PM Dictation Location: [employer] Electronically authenticated by: [id number] Y Date: 03/08/2025 20:36 Dictated By: Shivam Knapp D.O. Signed By: 03/08/252037 DD/ 35 TD/TT: Director Presales: [facility] US OB CERVICAL LENGTHon 02-24 [place] [address] Ultrasound Report Signed Patient: VIMAL FUNES MR#: [id number] : 2000 Acct:[id number] Age/Sex: 24 / F ADM Date: 03/08/25 Loc: US Attending Dr: Jose Rodriguez D.O. Ordering Physician: Jose Rodriguez D.O. Date of Service: 03/08/25 Procedure(s): US OB cervical length Accession Number(s): [id number] cc: JENNIFER SEE ; Jose Rodriguez D.O. [place] [address] Patient Name: VIMAL FUNES MRN: [facility]:[id number] date: 2000 Sex: F Assigned Patient Location: US Current Patient Location: US Accession/Order Number: [id number] Exam Date: 03/08/2025 20:31 Report Date: 03/08/2025 [...] Knapp M.D. 03/08/2025 8:36 PM Dictation Location: [employer] Electronically authenticated by: [id number] Y Date: 03/08/2025 20:36 Dictated By: Shivam Knapp D.O. Signed By: 03/08/252037 DD/ 35 TD/TT: Director Presales: [facility] Radiology, Radiologist, - 03/08/2025 [place] [address] Ultrasound Report Signed Patient: VIMAL FUNES MR#: [id number] : 2000 Acct:[id number] Age/Sex: 24 / F ADM Date: 03/08/25 Loc: US Attending Dr: Jose Rodriguez D.O. Ordering Physician: Jose Rodriguez D.O. Date of Service: 03/08/25 Procedure(s): US OB cervical length Accession Number(s): [id number] cc: JENNIFER SEE ; Jose Rodriguez D.O. The [address] [address] Patient Name: VIMAL FUNES MRN: [facility]:[id number] date: 2000 Sex: F Assigned Patient Location: Current Patient Location: Accession/Order Number: [id number] Exam Date: 03/08/2025 20:31 Report Date: 03/08/2025 [...] Knapp M.D. 03/08/2025 8:36 PM Dictation Location: [employer] Electronically authenticated by: [id number] Y Date: 03/08/2025 20:36 Dictated By: Shivam Knapp D.O. Signed By: 03/08/252037 DD/ 35 TD/TT: Director Presales: [facility] IGP,APTIMA HPV,AGE GDLNon AGE GDLN ACOG TESTING Note . [facility] Comment on above: TESTS RESULT FLAG UN ITS REF RANGE LAB Clinician Provided Cytology Information Source.............Endocervix No. of containers..01 ThinPrep Vial Age Ramirez MORALES Yris... FLAG LEGEND: L-Low Normal,H-High Normal,LL-Alert Low,HH-Alert High <-Panic Low,>-Panic High,A-Abnormal,AA-Critical Abnormal Performed at: 01 =G [facility] [address] [address] Jenise Byrne MD, IGP, RFX APTIMA HPV ASCU Note . [facility] Comment on above: TESTS RESULT FLAG UN ITS REF RANGE LAB DIAGNOSIS: 02 NEGATIVE FOR INTRAEPITHELIAL LESION OR MALIGNANCY. Specimen adequacy: 02 Satisfactory for evaluation. Endocervical and/or squamous metaplastic cells (endocervical component) are present. Performed by: Hussein Alvarez, Leaf Size Picker (ASC) . 02 Note: Note 02 The Pap [...] <-Panic Low,>-Panic High,A-Abnormal,AA-Critical Abnormal Performed at: [address] [address] Jenise Byrne MD, Performed at: =[address] [id number] Coordinator Skill Training Program: Jenise Byrne MD, Phone: [phone] Performed at: [address] [id number] Coordinator Skill Training Program: Jenise Byrne MD, Phone: [phone] SPATULA-ALONE ENDOCERVIX CL[facility] Healthcar e RECURRENT VAGINITIS (HTRX)on 02-22-2025 ATOPOBIUM VAGINAE 0 [facility] ATOPOBIUM VAGINAE Not detected [facility] BVAB 2,3 (BACTERIAL VAGINOSIS ASSOCIATED BACTERIA 2, 3); MOBILUNCUS SPP 0 [facility] BVAB 2,3 (BACTERIAL VAGINOSIS ASSOCIATED BACTERIA 2, 3); MOBILUNCUS SPP Not detected [facility] SIMEON ALBICANS, PARAPSILOSIS, TROPICALIS 0 [facility] SIMEON ALBICANS, PARAPSILOSIS, TROPICALIS Not detected [facility] SIMEON GLABRATA 0 [facility] SIMEON GLABRATA Not detected [facility] SIMEON KRUSEI 0 [facility] Healt hcare SIMEON KRUSEI Not [facility] CHLAMYDIA TRACHOMATIS 0 [facility] CHLAMYDIA TRACHOMATIS Not detected N [facility] GARDNERELLA VAGINALIS 0 [facility] GARDNERELLA VAGINALIS Not detected N [facility] MEGASPHAERA (TYPES 1, 2) 0 [facility] MEGASPHAERA (TYPES 1, 2) Not detected [facility] MYCOPLASMA GENITALIUM 0 [facility] S Healthcare MYCOPLASMA GENITALIUM Not detected N [facility] NEISSERIA GONORRHOEAE 0 [facility] S Healthcare NEISSERIA GONORRHOEAE Not detected N [facility] Healthcare TRICHOMONAS VAGINALIS 0 [facility] S Healthcare TRICHOMONAS VAGINALIS Not detected N [facility] Urinalysis macro (dipstick) panel (U)on 02-20-2025 Bilirubin, UA Negative Negative - 4(70) +++ mg/dL [facility] Healthcare Blood, UA Negative Negative - 50 Jason/mcL [facility] Healthcare Clarity, UA Clear [facility] re Color, UA Yellow [facility] Glucose, UA Negative Negative - 1999(110) ++++ mg/dL [facility] Interpretation and review of laboratory results Abnormal [facility] Ketones, UA Negative Negative - 160(16) ++++ mg/dL [facility] Leukocytes, UA Negative Negative - 500+++ Carlos/mcL [facility] Healthcare Nitrite, UA Negative Negative - Positive [facility] pH, UA 7 5 - 9 [facility] Protein, UA Negative Negative - 1999(20) ++++ mg/dL [facility] Spec Grav, UA 1.01 1 - 1.03 [facility] Urobilinogen, UA 0.2 0.2 - 12 mg/dL [facility] Unlisted Lab Teston 01-16-20 25 [facility] Urinalysis macro (dipstick) panel (U)on 01-14-2025 Bilirubin, UA Negative Negative - 4(70) +++ mg/dL [facility] Blood, UA Positive Negative - 50 Jason/mcL [facility] Healthcare Comment on above: trace-intact Clarity, UA Clear [facility] re Color, UA Yellow [facility] Glucose, UA Negative Negative - 1999(110) ++++ mg/dL [facility] Interpretation and review of laboratory results Abnormal [facility] Ketones, UA Negative Negative - 160(16) ++++ mg/dL [facility] Leukocytes, UA Negative Negative - 500+++ Carlos/mcL [facility] Healthcare Nitrite, UA Negative Negative - Positive [facility] pH, UA 6 5 - 9 [facility] Protein, UA Negative Negative - 1999(20) ++++ mg/dL [facility] Healthcare Spec Grav, UA 1.005 1 - 1.03 [facility] Urobilinogen, UA 0.2 0.2 - 12 mg/dL [facility] Free Cell DNA (Non-Pro Medica Send Out)on 01-13-2025 [facility] ALL CBC WITH AUTO DIFFon BASOPHILS ABSOLUTE AUTO 0 [facility] Basophils/100 WBC (Bld) 0.4 % 0.2 - 2.0 % [facility] Eosinophils/100 WBC (Bld) 1.7 % 0.9 - 7.0 % [facility] Erythrocyte distribution width (RBC) [Ratio] 12.3 % 11.0 - 15.0 % [facility] IMMATURE GRANULOCYTES ABS AUTO 0.02 [facility] Immature granulocytes/100 WBC (Bld) 0.2 % 0.0 - 0.5 % [facility] Interpretation and review of laboratory results Abnormal [facility] LYMPHOCYTES ABSOLUTE AUTO 1.4 [facility] Lymphocytes/100 WBC (Bld) 15.4 % Low 20.5 - 60.0 % [facility] MCH (RBC) [Entitic mass] 31.6 pg 26.7 - 34.0 pg [facility] MCHC (RBC) [Mass/Vol] 34.6 g/dL 29.9 - 35.2 g/dL [facility] MCV (RBC) [Entitic vol] 91.4 fL 81.0 - 99.0 fL [facility] MONOCYTES ABSOLUTE AUTO 0.5 [facility] Monocytes/100 WBC (Bld) 5.4 % 1.7 - 12.0 % [facility] NEUTROPHILS ABSOLUTE AUTO 7 High [facility] Neutrophils/100 WBC (Bld) 76.9 % High 43.0 - 75.0 % [facility] Platelet mean volume (Bld) [Entitic vol] 10.1 fL 9.5 - 13.5 fL [facility] EO # 0.2 [facility] PLT 216 [facility] RBC 4.65 [facility] WBC 9.2 [facility] Health[facility] CLIN[facility] CBC without diffOrdered By: Lay Peacock on 01-05-2025 Rbc Mcv (Fl) By Automated Count 91.4 [facility] Drug Screen, Urineon 025 Amphetamine/Methamphet amine Negative [facility] Barbiturates Negative [facility] Benzodiazepines Negarive [facility] Cocaine Metabolite Negative [facility] Ecstasy Negative [facility] Methadone Negative [facility] Opiates Negative [facility] Phencyclidine Negative [facility] Thc Marijuana, Urine Negative [facility] HBV surface Ag IA Qlon 01-05 Hepatitis B Surface Antigen Negative [facility] HIV 1+2 Ab+HIV1 p24 Ag IA Ql on 01-05-2025 HIV 1&2 AB/AG Non-Reactive [facility] Hemoglobin A1con 01-05-2025 HbA1c (Bld) [Mass fraction] 5 % 4.0 - 6.0 % [facility] Laboratory - Hematology and Cell countson 01-05-2025 Hematocrit (Bld) [Volume fraction] 42.5 % [facility] Health[facility] e Hemoglobin (Bld) [Mass/Vol] 14.7 g/dL [facility] [employer] No Panel Informationon 01-05 [facility] Rubella IGG immune statuson 01-05-2025 Rubella immune IgG 1.57 [facility] Type and screenon 01-05-2025 Abo/Rh(D) Positive [facility] US OB TRANSVAGINALon 12-14- 025 US OB [...] II, MD, PHD at 14-Dec-2024 08:35:59 PM [facility] Normal Not Available Comment on above: Order Comment: US OB TRANSVAGINAL No LMP recorded. [facility] PREG QUANT HCGon 11-21- 025 HCG QUANTITATIVE 25669 mIU/mL [facility] Comment on above: 5-50 0.2-1 WEEK 50-500 1-2 WEEKS 100-5,000 2-3 WEEKS 500-10,000 3-4 WEEKS 1,000-50,000 4-5 WEEKS 10,000-100,000 5-6 WEEKS 15,000-200,000 6-8 WEEKS 10,000-100,000 2-3 [facility] PREG QUANT HCGon 11-19- 025 HCG QUANTITATIVE 6254 mIU/mL [facility] Comment on above: 5-50 0.2-1 WEEK 50-500 1-2 WEEKS 100-5,000 2-3 WEEKS 500-10,000 3-4 WEEKS 1,000-50,000 4-5 WEEKS 10,000-100,000 5-6 WEEKS 15,000-200,000 6-8 WEEKS 10,000-100,000 2-3 [facility] PREG QUANT HCGon 08-18- 024 HCG QUANTITATIVE 6 mIU/mL [facility] Comment on above: 5-50 0.2-1 WEEK 50-500 1-2 WEEKS 100-5,000 2-3 WEEKS 500-10,000 3-4 WEEKS 1,000-50,000 4-5 WEEKS 10,000-100,000 5-6 WEEKS 15,000-200,000 6-8 WEEKS 10,000-100,000 2-3 [facility] ALL CBC WITH AUTO DIFFon BASOPHILS ABSOLUTE AUTO 0 [facility] Basophils/100 WBC (Bld) 0.5 % 0.2 - 2.0 % [facility] Eosinophils/100 WBC (Bld) 6.2 % 0.9 - 7.0 % [facility] Erythrocyte distribution width (RBC) [Ratio] 11.9 % 11.0 - 15.0 % [facility] Hematocrit (Bld) [Volume fraction] 43.8 % 36.0 - 48.0 % [facility] Hemoglobin (Bld) [Mass/Vol] 14.8 g/dL 12.0 - 16.0 g/dL [facility] IMMATURE GRANULOCYTES ABS AUTO 0.02 [facility] Immature granulocytes/100 WBC (Bld) 0.2 % 0.0 - 0.5 % [facility] LYMPHOCYTES ABSOLUTE AUTO 2 [facility] Lymphocytes/100 WBC (Bld) 22.1 % 20.5 - 60.0 % [facility] MCH (RBC) [Entitic mass] 31.7 pg 26.7 - 34.0 pg [facility] MCHC (RBC) [Mass/Vol] 33.8 g/dL 29.9 - 35.2 g/dL [facility] MCV (RBC) [Entitic vol] 93.8 fL 81.0 - 99.0 fL [facility] MONOCYTES ABSOLUTE AUTO 0.5 [facility] Monocytes/100 WBC (Bld) 5.3 % 1.7 - 12.0 % [facility] NEUTROPHILS ABSOLUTE AUTO 5.8 [facility] Neutrophils/100 WBC (Bld) 65.7 % 43.0 - 75.0 % [facility] Platelet mean volume (Bld) [Entitic vol] 10 fL 9.5 - 13.5 fL [facility] TBH EO # 0.6 [facility] PLT 236 [facility] RBC 4.67 [facility] Health[facility] TB WBC 8.9 [facility] Healthcar e [place] 08-10-2024 L Specimen: [id number] Received: 08/10/24 Status: CAROL Hoang Num: [id number] Spec Type: Surgical Subm Dr: Jose Rodriguez Tissues: A Products of Conception - Spontaneous or Missed (CONTENTS OF CONCEPT Procedures: HE/2, Gross/Micro L4 Age/ Patient Sex Location Account Attending Physician Vimal Funes LABELL [id number] Jose Rodriguez SPEC NUM: [id number] RECD: 08/10/24 STATUS: CAROL [facility] NUM: [id number] CAROLIN: 08/10/[address] [facility] [address]: Jose Rodriguez ENTERED: 08/10/24 [facility]: Vignesh Schmitz SPEC TYPE: Surgical DEPT: MONICA ALTMAN ENTERED BY: [id number] RECV BY: [id number] ORDERED: HE/2, Gross/Micro L4 ORDERED: HE/2, Gross/Micro [...] villi and decidua. No tissue is identified. Production Technician sections of the chorionic villi are submitted in cassette A1 with construction sales representative sections of the decidua is submitted in cassette A2. (2, ss, [id number]) CPT Codes 27783 Specimen: [id number] Received: 08/10/24 Status: CAROL Hoang Num: [id number] Spec Type: Surgical Subm Dr: Jose Rodriguez Tissues: A Products of Conception - Spontaneous or Missed (CONTENTS OF CONCEPT Procedures: TONJA/Odell Flores/Agusto L4 Patient: Vimal Funes [id number] (Continued) Signed (signature on file) Josh Aragon MD 08/13/24 1647 Normal [facility] TBH PREG QUANT HCGon 024 HCG QUANTITATIVE 240 mIU/mL [facility] lthcare Comment on above: 5-50 0.2-1 WEEK 50-500 1-2 WEEKS 100-5,000 2-3 WEEKS 500-10,000 3-4 WEEKS 1,000-50,000 4-5 WEEKS 10,000-100,000 5-6 WEEKS 15,000-200,000 6-8 WEEKS 10,000-100,000 2-3 MONTHS [facility] ALL CBC WITH AUTO DIFFon BASOPHILS ABSOLUTE AUTO 0.1 [facility] Basophils/100 WBC (Bld) 0.5 % 0.2 - 2.0 % [facility] Eosinophils/100 WBC (Bld) 2.8 % 0.9 - 7.0 % [facility] Erythrocyte distribution width (RBC) [Ratio] 11.9 % 11.0 - 15.0 % [facility] Hematocrit (Bld) [Volume fraction] 44.7 % 36.0 - 48.0 % [facility] Hemoglobin (Bld) [Mass/Vol] 15.3 g/dL 12.0 - 16.0 g/dL [facility] IMMATURE GRANULOCYTES ABS AUTO 0.03 [facility] Immature granulocytes/100 WBC (Bld) 0.3 % 0.0 - 0.5 % [facility] Interpretation and review of laboratory results Abnormal [facility] LYMPHOCYTES ABSOLUTE AUTO 1.6 [facility] Lymphocytes/100 WBC (Bld) 14.9 % Low 20.5 - 60.0 % [facility] MCH (RBC) [Entitic mass] 31.7 pg 26.7 - 34.0 pg [facility] MCHC (RBC) [Mass/Vol] 34.2 g/dL 29.9 - 35.2 g/dL [facility] MCV (RBC) [Entitic vol] 92.7 fL 81.0 - 99.0 fL [facility] MONOCYTES ABSOLUTE AUTO 0.4 [facility] Monocytes/100 WBC (Bld) 3.7 % 1.7 - 12.0 % [facility] NEUTROPHILS ABSOLUTE AUTO 8.2 High [facility] Neutrophils/100 WBC (Bld) 77.8 % High 43.0 - 75.0 % [facility] Platelet mean volume (Bld) [Entitic vol] 10 fL 9.5 - 13.5 fL [facility] TBH EO # 0.3 [facility] PLT 263 [facility] RBC 4.82 [facility] WBC 10.6 [facility] No Panel Informationon 07-21 [facility] DRUG SCREEN RAPID (URINE )on 07-21-2024 AMPHETAMINE SCREEN URINE Negative NEGATIVE [facility] BARBITURATES SCREEN URINE Negative NEGATIVE [facility] BENZODIAZEPINES SCREEN URINE Negative NEGATIVE [facility] BUPRENORPHINE SCREEN URINE Negative NEGATIVE [facility] Comment on above: DRUG CLASS TEST SYST [...] 300 ng/mL CANNABINOID SCREEN URINE Negative NEGATIVE [facility] COCAINE SCREEN URINE Negative NEGATIVE [facility] METHADONE SCREEN URINE Negative NEGATIVE NO [facility] METHAMPHETAMINES SCREEN URINE Negative NEGATIVE [facility] OPIATE SCREEN URINE Negative NEGATIVE [facility] OXYCODONE SCREEN URINE Negative NEGATIVE NO [facility] PHENCYCLIDINE SCREEN URINE Negative NEGATIVE [facility] TRICYCLIC ANTIDEPRESSANT URINE Negative NEGATIVE [facility] REEFLEX IF POSITIVE CLIN[facility] HCG ( test) Ql (U)o n 06-29-2024 Interpretation and review of laboratory results Abnormal [facility] Preg Test, Ur Positive [facility] Urinalysis macro (dipstick) panel (U)on 06-29-2024 Bilirubin, UA Negative Negative - 4(70) +++ mg/dL [facility] Blood, UA Negative Negative - 50 Jason/mcL [facility] Clarity, UA Clear [facility] Healthca re Color, UA Yellow [facility] Glucose, UA Negative Negative - 1999(110) ++++ mg/dL [facility] Interpretation and review of laboratory results Normal [facility] Ketones, UA Negative Negative - 160(16) ++++ mg/dL [facility] Leukocytes, UA Negative Negative - 500+++ Cralos/mcL [facility] Nitrite, UA Negative Negative - Positive [facility] pH, UA 7.0 5 - 9 [facility] Health[facility] e Protein, UA Negative Negative - 1999(20) ++++ mg/dL [facility] Spec Grav, UA 1.015 1 - 1.03 [facility] Urobilinogen, UA 0.2 0.2 - 12 mg/dL [facility] XR hand RT min 3V*on 023 XR hand RT min 3V* [facility] [employer] Other XR hand RT min 3V* [facility] [employer] Other XR hand RT min 3V* [address] [place] [address] [employer] Other XR hand RT min 3V* [place] [address] [employer] Other XR hand RT min 3V* XRay Report [employer] Other XR hand RT min 3V* Signed [employer] Other XR hand RT min 3V* Patient: Vimal Funes MR#: [id number] [employer] Other XR hand RT min 3V* 18 [employer] Other XR hand RT min 3V* : 2000 Acct:[id number] [employer] Other XR hand RT min 3V* Age/Sex: 22 / F ADM Date: 12/26/22 [employer] Other XR hand RT min 3V* Loc: XDUCLY Room: Type: [facility] [employer] Other XR hand RT min 3V* Attending Dr: Jennifer GIL [employer] Other XR hand RT min 3V* Copies to: JEFFERY Rodriguez [employer] Other XR hand RT min 3V* Ordering Provider: JEFFERY Rodriguez [employer] Other XR hand RT min 3V* Date of Service: 12/26/22 [employer] Other XR hand RT min 3V* XR/XR hand RT min 3V*: RIGHT HAND INJURY [employer] Other XR hand RT min 3V* RIGHT HAND - 4 views [employer] Other XR hand RT min 3V* REASON FOR EXAM: Patient had right thumb hyperextended yesterday when trying to open the door. Now [employer] Other XR hand RT min 3V* with pain. [employer] Other XR hand RT min 3V* COMPARISON: None [employer] Other XR hand RT min 3V* FINDINGS: [employer] Other XR hand RT min 3V* No focal soft tissue abnormality. There appears to be avulsion fracture involving the base of the [employer] Other XR hand RT min 3V* distal phalanx of the thumb. Joint spaces appear maintained. No bony erosions. [employer] Other XR hand RT min 3V* XR/XR hand RT min 3V* [employer] Other XR hand RT min 3V* IMPRESSION: [employer] Other XR hand RT min 3V* AVULSION FRACTURE INVOLVING THE BASE OF THE DISTAL PHALANX OF THE THUMB. [employer] Other XR hand RT min 3V* Impression dictated by: Bulmaro Arias Jr., Bahman12/26/2022 1:44 PM [employer] Other XR hand RT min 3V* Dictation Location: [facility]IO-PC-15 [employer] Other XR hand RT min 3V* Transcribed By: PWS 12/26/22 [facility] [employer] Other XR hand RT min 3V* Dictated By: Bulmaro Arias Jr DO 12/26/22 [facility] [employer] Other XR hand RT min 3V* Signed By: [employer] Other XR hand RT min 3V* 12/26/[address] [place] [address] [facility] Other PAP ACOG PANEL 2: 21 to 29on 11-09-2022 . . Normal [facility] Comment on above: Performed By: #### [id number] ####[facility] [address] [place] [address]DrGene Mancini Age Gdln ACOG Testing - [facility] Comment on above: Performed By: #### [id number] ####[facility] [address] [place] [id number] Mancini DIAGNOSIS: Comment [facility] Comment on above: Result Comment: NEGA TIVE FOR INTRAEPITHELIAL LESION OR MALIGNANCY. Performed By: #### [id number] ####[facility] [address] [place] [id number] Mancini Methodology: Comment [facility] Comment on above: Result Comment: This liquid based ThinPrep(R) pap test was screened with the use of an image guided system. Performed By: #### 4 [id number] ####[facility] [address] [place] [address]DrGene Mancini Note: Comment [facility] Comment on above: Result Comment: The Pap smear is a screening test designed to aid in the detection of premalignant and malignant conditions of the uterine cervix. It is not a diagnostic procedure and should not be used as the sole means of detecting cervical cancer. Both false-positive and false-negative reports do occur. . Performed By: #### 4 [id number] ####[facility] [address] [place] [address]Dr. Donis Mancini Performed by: Comment [facility] Comment on above: Result Comment: Zuleima Lin, Inbound Call Center Representative (ASCP) Performed By: #### 4 [id number] ####[facility] [address] [place] [address]DrGene Mancini Reflex Criteria: Comment Normal [facility] Comment on above: Result Comment: The HPV DNA reflex criteria were not met with this specimen result therefore, no HPV testing was performed. . Performed By: #### 4 [id number] ####[facility] [address] [place] [address]Dr. Donis Mancini Specimen adequacy: Comment [facility] Comment on above: Result Comment: Sati sfactory for evaluation. Endocervical and/or squamous metaplastic cells (endocervical component) are present. Performed By: #### [id number] ####[facility] [address] [place] [address]Dr. Donis Mancini Cytology Cervical or vaginal smear or scraping studyOrdered By: Jael Nix on 11-02-2022 [facility] CBC AUTO DIFFon 08-11-2022 BASO # 0.0 103/ul Normal 0.0-0.1 [facility] Comment on above: Performed By: #### C T/NGNA #### [facility] [address] [place] [address] Dr. Donis Mancini Basophils/100 WBC (Bld) 0.2 % Normal 0.2-2.0 [facility] Comment on above: Performed By: #### C T/NGNA #### [facility] [address] [place] [address] Dr. Donis Mancini EO # 0.1 103/ul Normal 0.0-0.7 [facility] Comment on above: Performed By: #### C T/NGNA #### [facility] [address] [place] [address] Dr. Donis Mancini Eosinophils/100 WBC (Bld) 0.5 % Critically low 0.9-7.0 [facility] Comment on above: Performed By: #### C T/NGNA #### [facility] [address] [place] [address] Dr. Donis Mancini Erythrocyte distribution width (RBC) [Ratio] 12.5 % Normal 11.0-15.0 [facility] Comment on above: Performed By: #### C T/NGNA #### [facility] [address] [place] [address] Dr. Donis Mancini Hematocrit (Bld) [Volume fraction] 35.9 % Critically low 36.0-48.0 [facility] Comment on above: Performed By: #### C T/NGNA #### [facility] [address] [place] [address] Dr. Donis Mancini Hemoglobin (Bld) [Mass/Vol] 12.4 g/dL Normal 12.0-16.0 [facility] Comment on above: Result Comment: michelet ent delivered Performed By: #### C T/NGNA #### [facility] [address] [place] [address] Dr. Donis Mancini IG # 0.10 10e3/ul Critically high 0.00-0.03 [facility] Comment on above: Performed By: #### C T/NGNA #### [facility] [address] [place] [address] Dr. Donis Mancini IG % 0.5 % Normal 0.0-0.5 [facility] Comment on above: Performed By: #### C T/NGNA #### [facility] [address] [place] [address] Dr. Donis Mancini LYMPH # 1.5 103/ul Normal 1.2-3.8 [facility] Comment on above: Performed By: #### C T/NGNA #### [facility] [address] [place] [address] [address] Donis Mancini Lymphocytes/100 WBC (Bld) 7.6 % Critically low 20.5-60.0 [facility] Comment on above: Performed By: #### C T/NGNA #### [facility] [address] [place] [address] Dr. Donis Mancini MANUAL DIFF REQ NO Normal [facility] Comment on above: Performed By: #### C T/NGNA #### [facility] [address] [place] [address] Dr. Donis Mancini MCH (RBC) [Entitic mass] 32.2 pg Normal 26.7-34.0 [facility] Comment on above: Performed By: #### C T/NGNA #### [facility] [address] [place] [address] Dr. Donis Mancini MCHC (RBC) [Mass/Vol] 34.5 g/dL Normal 29.9-35.2 [facility] Comment on above: Performed By: #### C T/NGNA #### [facility] [address] [place] [address] Dr. Donis Mancini MCV (RBC) [Entitic vol] 93.2 fL Normal 81.0-99.0 [facility] Comment on above: Performed By: #### C T/NGNA #### [facility] [address] [place] [address] Dr. Donis Mancini MONO # 1.3 103/ul Critically high 0.3-0.8 [facility] Comment on above: Performed By: #### C T/NGNA #### [facility] [address] [place] [address] Dr. Donis Mancini Monocytes/100 WBC (Bld) 6.8 % Normal 1.7-12.0 [facility] Comment on above: Performed By: #### C T/NGNA #### [facility] [address] [place] [address] Dr. Donis Mancini NEUT # 16.2 103/ul Critically high 1.4-6.5 [facility] Comment on above: Performed By: #### C T/NGNA #### [facility] [address] [place] [address] [address] Donis Mancini Neutrophils/100 WBC (Bld) 84.4 % Critically high 43.0-75.0 [facility] Comment on above: Performed By: #### C T/NGNA #### [facility] [address] [place] [address] Dr. Donis Mancini Platelet mean volume (Bld) [Entitic vol] 11.8 fL Normal 9.5-13.5 [facility] Comment on above: Performed By: #### C T/NGNA #### [facility] [address] [place] [address] Dr. Donis Mancini PLT 156 103/ul Normal 150-450 [facility] Comment on above: Performed By: #### C T/NGNA #### [facility] [address] [place] [address] Dr. Donis Mancini RBC 3.85 106/ul Critically low 4.20-5.40 [facility] Comment on above: Performed By: #### C T/NGNA #### [facility] [address] [place] [address] Dr. Donis Mancini WBC 19.2 103/ul Critically high 4.0-11.0 [facility] Comment on above: Performed By: #### C T/NGNA #### [facility] [address] [place] [address] Dr. Donis Mancini [facility]on 07-27 SARS-CoV-2 (COVID-19) RNA INESSA+probe Ql (Unsp spec) Not detected Normal NOT DETECTED [facility] Comment on above: Result Comment: When [...] for this test is supported by the Residential Treatment Staff of Health and Human Service's declaration that [...] be used). Performed By: #### C VDTBH ####[facility] [address] [place], [place] [address]Dr. Donis Manciin DRUG SCREEN RAPID (URINE)on 08-10-2022 AMP Negative Normal NEGATIVE [facility] Comment on above: Performed By: #### D RUGRPD ####[facility] [address] [place], [place] [address]Dr. Donis Manicni BAR Negative Normal NEGATIVE [facility] Comment on above: Performed By: #### D RUGRPD ####[facility] [address] [place], [place] [address]Dr. Laceyjavi Mancini BUP Negative Normal NEGATIVE [facility] Comment on above: Performed By: #### D RUGRPD ####[facility] [address] [place], [place] [address]Dr. Donis Mancini BZO Negative Normal NEGATIVE [facility] Comment on above: Performed By: #### D RUGRPD ####[facility] [address] [place], [place] [address]Dr. Donis Mancini ALEXA Negative Normal NEGATIVE [facility] Comment on above: Performed By: #### D RUGRPD ####[facility] [address] [place], [place] [address]Dr. Laceyjavi Mancini CUT-OFFS SEE BELOW Normal [facility] Comment on above: Result Comment: AMP (Amphetamine): 500ng/mL, BAR (Barbituates): 200 ng/mL, BZO (Benzodiazepines): 150 ng/mL, BUP (Buprenorphine): 10 ng/mL, ALEXA (Cocaine): 150 ng/mL, mAMP (Methamphetamine): 500 ng/mL, MTD (Methadone): 200 ng/mL, OPI (Opiates): 100 ng/mL, OXY (Oxycodone): 100 ng/mL, PCP (Phencyclidine): 25 ng/mL, PPX (Propoxyphene): 300 ng/mL, THC (Cannabinoids): 50 ng/mL, TCA (Trycyclic Antidepressants): 300 ng/mL Performed By: #### D RUGRPD ####[facility] [address] [place], [place] [address]Dr. javi [facility] DRUG CUT HEADER DRUG CLASS TEST SYSTEM CUT-OFF CONCENTRATIONS ARE FOLLOWS: Normal [facility] Comment on above: Performed By: #### D RUGRPD ####[facility] [address] [place], [place] [address]Dr. Donis Mancini mAMP Negative Normal NEGATIVE [facility] Comment on above: Performed By: #### D RUGRPD ####[facility] [address] [place], [place] [address]Dr. Donis Mancini MTD Negative Normal NEGATIVE [facility] Comment on above: Performed By: #### D RUGRPD ####[facility] [address] [place], [place] [address]Dr. Donis [facility] OPI Negative Normal NEGATIVE [facility] Comment on above: Performed By: #### D RUGRPD ####[facility] [address] [place], [place] [address]Dr. Donis Mancini OXY Negative Normal NEGATIVE [facility] Comment on above: Performed By: #### D RUGRPD ####[facility] [address] [place], [place] [address]Dr. Donis Mancini PCP Negative Normal NEGATIVE [facility] Comment on above: Performed By: #### D RUGRPD ####[facility] [address] [place], [place] [address]Dr. Donis [facility] PPX Negative Normal NEGATIVE [facility] Comment on above: Performed By: #### D RUGRPD ####[facility] [address] [place], [place] [address]Dr. Donis Mancini TCA Negative Normal NEGATIVE [facility] Comment on above: Performed By: #### D RUGRPD ####[facility] [address] [place], [place] [address]Yy. Donis Mancini THC Negative Normal NEGATIVE [facility] Comment on above: Performed By: #### D RUGRPD ####[facility] [address] [place], [place] [address]Ts. Donis Mancini TYPE AND SCREENon 08-10-2022 TYPE AND SCREEN Negative Normal [facility] Comment on above: Performed By: #### T NS ####[facility] [address] [place], [place] [address]Hz. Donis Mancini US PREG BIOPHY W NON [...] ESTEFANY BENNETT Date: 2022-08-10 07:18 Normal [facility] US PREG GROWTHon 08-10-2022 US PREG [...] ESTEFANY BENNETT Date: 2022-08-10 07:16 Normal [facility] CBC AUTO DIFFon 08-09-2022 BASO # 0.0 103/ul Normal 0.0-0.1 [facility] Comment on above: Performed By: #### C BC ####[facility] [address] [place] [id number]. Donis Mancini Basophils/100 WBC (Bld) 0.2 % Normal 0.2-2.0 [facility] Comment on above: Performed By: #### C BC ####[facility] [address] [place], [place] [address]Dr. Donis Mancini EO # 0.4 103/ul Normal 0.0-0.7 [facility] Comment on above: Performed By: #### C BC ####[facility] [address] [place] [address]Dr. Donis Mancini Eosinophils/100 WBC (Bld) 2.8 % Normal 0.9-7.0 [facility] Comment on above: Performed By: #### C BC ####[facility] [address] [place], [place] [address]Dr. Donis Mancini Erythrocyte distribution width (RBC) [Ratio] 12.2 % Normal 11.0-15.0 [facility] Comment on above: Performed By: #### C BC ####[facility] [address] [place], [place] [address]Dr. Donis Mancini Hematocrit (Bld) [Volume fraction] 41.4 % Normal 36.0-48.0 [facility] Comment on above: Performed By: #### C BC ####[facility] [address] [place] [address]DrGene Mancini Hemoglobin (Bld) [Mass/Vol] 14.4 g/dL Normal 12.0-16.0 [facility] Comment on above: Performed By: #### C BC ####[facility] [address] [place], [place] [address]DrGene Mancini IG # 0.06 10e3/ul Critically high 0.00-0.03 [facility] Comment on above: Performed By: #### C BC ####[facility] [address] [place] [id number] Mancini IG % 0.5 % Normal 0.0-0.5 [facility] Comment on above: Performed By: #### C BC ####[facility] [address] [place] [id number] Mancini LYMPH # 1.5 103/ul Normal 1.2-3.8 [facility] Comment on above: Performed By: #### C BC ####[facility] [address] [place] [phone] Mancini Lymphocytes/100 WBC (Bld) 11.7 % Critically low 20.5-60.0 [facility] Comment on above: Performed By: #### C BC ####[facility] [address] [place] [address]DrGene Mancini MANUAL DIFF REQ NO Normal [facility] Comment on above: Performed By: #### C BC ####[facility] [address] [place] [phone] Donis Live MCH (RBC) [Entitic mass] 31.9 pg Normal 26.7-34.0 [facility] Comment on above: Performed By: #### C BC ####[facility] [address] [place] [phone] Laceyjavi Mancini MCHC (RBC) [Mass/Vol] 34.8 g/dL Normal 29.9-35.2 [facility] Comment on above: Performed By: #### C BC ####[facility] [address] [place] [phone] Laceyjavi Mancini MCV (RBC) [Entitic vol] 91.8 fL Normal 81.0-99.0 [facility] Comment on above: Performed By: #### C BC ####[facility] [address] [place] [phone] Macnini MONO # 1.0 103/ul Critically high 0.3-0.8 [facility] Comment on above: Performed By: #### C BC ####[facility] [address] [place] [phone]. Donis Mancini Monocytes/100 WBC (Bld) 7.5 % Normal 1.7-12.0 [facility] Comment on above: Performed By: #### C BC ####[facility] [address] [place] [id number]. Donis Mancini NEUT # 10.0 103/ul Critically high 1.4-6.5 [facility] Comment on above: Performed By: #### C BC ####[facility] [address] [place] [address]Dr. Donis Mancini Neutrophils/100 WBC (Bld) 77.3 % Critically high 43.0-75.0 [facility] Comment on above: Performed By: #### C BC ####[facility] [address] [place] [address]Dr. Donis Mancini Platelet mean volume (Bld) [Entitic vol] 11.6 fL Normal 9.5-13.5 [facility] Comment on above: Performed By: #### C BC ####[facility] [address] [place], [place] [address]Dr. Donis Mancini PLT 184 103/ul Normal 150-450 [facility] Comment on above: Performed By: #### C BC ####[facility] [address] [place] [address]Dr. Donis Mancini RBC 4.51 106/ul Normal 4.20-5.40 [facility] Comment on above: Performed By: #### C BC ####[facility] [address] [place] [id number]. Donis Mancini WBC 12.9 103/ul Critically high 4.0-11.0 [facility] Comment on above: Performed By: #### C BC ####[facility] [address] [place] [phone]. Donis Mancini LDHon 08-09-2022 LDH 167 U/L Normal 81-234 [facility] Comment on above: Performed By: #### C T/NGNA #### [facility] [address] [address] [address] Donis Mancini PROF 14(COMP METB)on 022 Albumin [Mass/Vol] 2.7 g/dL Critically low 3.4-5.0 [facility] Comment on above: Performed By: #### C T/NGNA #### [facility] [address] [address] [address] Donis Mancini Albumin/Globulin [Mass ratio] 0.6 {ratio} Normal [facility] Comment on above: Performed By: #### C T/NGNA #### [facility] [address] [place] [address] Dr. Donis Mancini ALP [Catalytic activity/Vol] 176 U/L Critically high 46-116 [facility] Comment on above: Performed By: #### C T/NGNA #### [facility] [address] [place] [address] [address] Donis Mancini ALT [Catalytic activity/Vol] 20 U/L Normal 14-59 [facility] Comment on above: Performed By: #### C T/NGNA #### [facility] [address] [address] [address] Donis Mancini Anion gap [Moles/Vol] 12.9 mmol/L Normal [facility] Comment on above: Performed By: #### C T/NGNA #### [facility] [address] [place] [address] [address] Donis Mancini AST [Catalytic activity/Vol] 20 U/L Normal 15-37 [facility] Comment on above: Performed By: #### C T/NGNA #### [facility] [address] [address] [address] Donis Mancini Bilirubin [Mass/Vol] 0.1 mg/dL Critically low 0.2-1.0 [facility] Comment on above: Performed By: #### C T/NGNA #### [facility] [address] [place] [address] Dr. Donis Mancini Calcium [Mass/Vol] 9.1 mg/dL Normal 8.5-10.1 [facility] Comment on above: Performed By: #### C T/NGNA #### [facility] [address] [place] [address] Dr. Donis Mancini Chloride [Moles/Vol] 104 mmol/L Normal 98-107 [facility] Comment on above: Performed By: #### C T/NGNA #### [facility] [address] [place] [address] Dr. Donis Mancini CO2 [Moles/Vol] 22.9 mmol/L Normal 21.0-32.0 [facility] Comment on above: Performed By: #### C T/NGNA #### [facility] [address] [place] [address] Dr. Donis Mancini Creatinine [Mass/Vol] 0.43 mg/dL Critically low 0.55-1.02 [facility] Comment on above: Performed By: #### C T/NGNA #### [facility] [address] [place] [address] Dr. Donis Mancini EGFR-AF KENYAN >60 Normal >=60 [facility] Comment on above: Performed By: #### C T/NGNA #### [facility] [address] [place] [address] Dr. Donis Mancini EGFR-NON AF KENYAN >60 Normal >=60 [facility] Comment on above: Performed By: #### C T/NGNA #### [facility] [address] [place] [address] Dr. Donis Mancini Globulin (S) [Mass/Vol] 4.2 g/dL Normal [facility] Comment on above: Performed By: #### C T/NGNA #### [facility] [address] [place] [address] Dr. Donis Mancini Glucose [Mass/Vol] 95 mg/dL Normal 74-106 [facility] Comment on above: Performed By: #### C T/NGNA #### [facility] [address] [place] [address] Dr. Donis Mancini Potassium [Moles/Vol] 3.8 mmol/L Normal 3.5-5.1 [facility] Comment on above: Performed By: #### C T/NGNA #### [facility] [address] [place] [address] Dr. Donis Mancini Protein [Mass/Vol] 6.9 g/dL Normal 6.4-8.2 [facility] Comment on above: Performed By: #### C T/NGNA #### [facility] [address] [place] [address] Dr. Donis Mancini Sodium [Moles/Vol] 136 mmol/L Normal 136-145 [facility] Comment on above: Performed By: #### C T/NGNA #### [facility] [address] [place] [address] Dr. Donis Mancini Urea nitrogen [Mass/Vol] 10.0 mg/dL Normal 7.0-18.0 [facility] Comment on above: Performed By: #### C T/NGNA #### [facility] [address] [place] [address] Dr. Donis Mancini Urea nitrogen/Creatinine [Mass ratio] 23.3 mg/mg Normal [facility] Comment on above: Performed By: #### C T/NGNA #### [facility] [address] [place] [address] Dr. Donis Mancini URIC ACID SERUMon 08-09-2022 Urate [Mass/Vol] 3.6 mg/dL Normal 2.6-6.0 [facility] Comment on above: Performed By: #### C T/NGNA #### [facility] [address] [place] [address] Dr. Donis Mancini CBC AUTO DIFFon 08-07-2022 BASO # 0.0 103/ul Normal 0.0-0.1 [facility] Comment on above: Performed By: #### U AMIC #### [facility] [address] [place] [address] Dr. Donis Mancini Basophils/100 WBC (Bld) 0.2 % Normal 0.2-2.0 [facility] Comment on above: Performed By: #### U AMIC #### [facility] [address] [address] [address] Donis Mancini EO # 0.2 103/ul Normal 0.0-0.7 [facility] Comment on above: Performed By: #### U AMIC #### [facility] [address] [address] [address] Donis Mancini Eosinophils/100 WBC (Bld) 1.8 % Normal 0.9-7.0 [facility] Comment on above: Performed By: #### U AMIC #### [facility] [address] [place] [address] Dr. Donis Mancini Erythrocyte distribution width (RBC) [Ratio] 12.3 % Normal 11.0-15.0 [facility] Comment on above: Performed By: #### U AMIC #### [facility] [address] [place] [address] Dr. Donis Mancini Hematocrit (Bld) [Volume fraction] 45.7 % Normal 36.0-48.0 [facility] Comment on above: Performed By: #### U AMIC #### [facility] [address] [place] [address] Dr. Donis Mancini Hemoglobin (Bld) [Mass/Vol] 16.0 g/dL Normal 12.0-16.0 [facility] Comment on above: Performed By: #### U AMIC #### [facility] [address] [place] [address] Dr. Donis Mancini IG # 0.07 10e3/ul Critically high 0.00-0.03 [facility] Comment on above: Performed By: #### U AMIC #### [facility] [address] [place] [address] Dr. Donis Mancini IG % 0.5 % Normal 0.0-0.5 [facility] Comment on above: Performed By: #### U AMIC #### [facility] [address] [place] [address] Dr. Donis Mancini LYMPH # 1.5 103/ul Normal 1.2-3.8 [facility] Comment on above: Performed By: #### U AMIC #### [facility] [address] [address] [address] Donis Mancini Lymphocytes/100 WBC (Bld) 11.2 % Critically low 20.5-60.0 [facility] Comment on above: Performed By: #### U AMIC #### [facility] [address] [place] [address] Dr. Donis Mancini MANUAL DIFF REQ NO Normal [facility] Comment on above: Performed By: #### U AMIC #### [facility] [address] [place] [address] Dr. Donis Mancini MCH (RBC) [Entitic mass] 32.0 pg Normal 26.7-34.0 [facility] Comment on above: Performed By: #### U AMIC #### [facility] [address] [place] [address] Dr. Donis Mancini MCHC (RBC) [Mass/Vol] 35.0 g/dL Normal 29.9-35.2 [facility] Comment on above: Performed By: #### U AMIC #### [facility] [address] [place] [address] Dr. Donis Mancini MCV (RBC) [Entitic vol] 91.4 fL Normal 81.0-99.0 [facility] Comment on above: Performed By: #### U AMIC #### [facility] [address] [place] [address] Dr. Donis Mancini MONO # 0.9 103/ul Critically high 0.3-0.8 The [facility] Comment on above: Performed By: #### U AMIC #### [facility] [address] [place] [address] Dr. Donis Mancini Monocytes/100 WBC (Bld) 6.3 % Normal 1.7-12.0 [facility] Comment on above: Performed By: #### U AMIC #### [facility] [address] [place] [address] Dr. Donis Mancini NEUT # 10.9 103/ul Critically high 1.4-6.5 The [facility] Comment on above: Performed By: #### U AMIC #### [facility] [address] [place], [place] [address] Dr. Donis Mancini Neutrophils/100 WBC (Bld) 80.0 % Critically high 43.0-75.0 [facility] Comment on above: Performed By: #### U AMIC #### [facility] [address] [place], [place] [address] Dr. Donis Mancini Platelet mean volume (Bld) [Entitic vol] 11.5 fL Normal 9.5-13.5 [facility] Comment on above: Performed By: #### U AMIC #### [facility] [address] [place] [address] [address] Donis Mancini PLT 182 103/ul Normal 150-450 [facility] Comment on above: Performed By: #### U AMIC #### [facility] [address] [place] [address] [address] Donis Mancini RBC 5.00 106/ul Normal 4.20-5.40 [facility] Comment on above: Performed By: #### U AMIC #### [facility] [address] [address] [address] Donis Mancini WBC 13.6 103/ul Critically high 4.0-11.0 [facility] Comment on above: Performed By: #### U AMIC #### [facility] [id number] Donis Mancini LDHon 08-07-2022 LDH 171 U/L Normal 81-234 [facility] Comment on above: Performed By: #### C MP, URIC, LDH ####[facility] [address] [place] [id number]. Donis Mancini PROF 14(COMP METB)on 022 Albumin [Mass/Vol] 2.9 g/dL Critically low 3.4-5.0 Th [facility] Comment on above: Performed By: #### C MP, URIC, LDH ####[facility] [address] [place] [id number]. Donis Mancini Albumin/Globulin [Mass ratio] 0.6 {ratio} Normal [facility] Comment on above: Performed By: #### C MP, URIC, LDH ####[facility] [address] [place] [address]Dr. Donis Mancini ALP [Catalytic activity/Vol] 192 U/L Critically high 46-116 [facility] Comment on above: Performed By: #### C MP, URIC, LDH ####[facility] [address] [place] [address]Dr. Donis Mancini ALT [Catalytic activity/Vol] 23 U/L Normal 14-59 [facility] Comment on above: Performed By: #### C MP, URIC, LDH ####[facility] [address] [place] [address]Dr. Donis Mancini Anion gap [Moles/Vol] 14.4 mmol/L Normal Th e [facility] Comment on above: Performed By: #### C MP, URIC, LDH ####[facility] [address] [place], [place] [address]Dr. Donis Mancini AST [Catalytic activity/Vol] 23 U/L Normal 15-37 [facility] Comment on above: Performed By: #### C MP, URIC, LDH ####[facility] [address] [place], [place] [address]Dr. Donis Mancini Bilirubin [Mass/Vol] 0.2 mg/dL Normal 0.2-1.0 [facility] Comment on above: Performed By: #### C MP, URIC, LDH ####[facility] [address] [place], [place] [address]Dr. Donis Mancini Calcium [Mass/Vol] 9.4 mg/dL Normal 8.5-10.1 [facility] Comment on above: Performed By: #### C MP, URIC, LDH ####[facility] [address] [place], [place] [address]Dr. Donis Mancini Chloride [Moles/Vol] 104 mmol/L Normal 98-107 [facility] Comment on above: Performed By: #### C MP, URIC, LDH ####[facility] [address] [place], [place] [address]Dr. Donis Mancini CO2 [Moles/Vol] 21.7 mmol/L Normal 21.0-32.0 The [facility] Comment on above: Performed By: #### C MP, URIC, LDH ####[facility] [address] [place] [address]Dr. Donis Mancini Creatinine [Mass/Vol] 0.46 mg/dL Critically low 0.55-1.02 [facility] Comment on above: Performed By: #### C MP, URIC, LDH ####[facility] [address] [place] [address]Dr. Donis Mancini EGFR-AF KENYAN >60 Normal >=60 The [facility] Comment on above: Performed By: #### C MP, URIC, LDH ####[facility] [address] [place] [address]Dr. Donis Mancini EGFR-NON AF KENYAN >60 Normal >=60 [facility] Comment on above: Performed By: #### C MP, URIC, LDH ####[facility] [address] [place] [address]Dr. Donis Mancini Globulin (S) [Mass/Vol] 4.6 g/dL Normal [facility] Comment on above: Performed By: #### C MP, URIC, LDH ####[facility] [address] [place] [address]Dr. Donis Mancini Glucose [Mass/Vol] 89 mg/dL Normal 74-106 The [facility] Comment on above: Performed By: #### C MP, URIC, LDH ####[facility] [address] [place] [address]Dr. Donis Mancini Potassium [Moles/Vol] 4.1 mmol/L Normal 3.5-5.1 [facility] Comment on above: Performed By: #### C MP, URIC, LDH ####[facility] [address] [place] [address]Dr. Donis Mancini Protein [Mass/Vol] 7.5 g/dL Normal 6.4-8.2 [facility] Comment on above: Performed By: #### C MP, URIC, LDH ####[facility] [address] [place] [phone]. Donis Mancini Sodium [Moles/Vol] 136 mmol/L Normal 136-145 [facility] Comment on above: Performed By: #### C MP, URIC, LDH ####[facility] [address] [place], [place] [address]Br. Donis Mancini Urea nitrogen [Mass/Vol] 8.0 mg/dL Normal 7.0-18.0 [facility] Comment on above: Performed By: #### C MP, URIC, LDH ####[facility] [address] [place] [phone]. Donis Mancini Urea nitrogen/Creatinine [Mass ratio] 17.4 mg/mg Normal [facility] Comment on above: Performed By: #### C MP, URIC, LDH ####[facility] [address] [place] [phone] Mancini PROTIMEon 08-07-2022 INR Coag (PPP) [Relative time] {INR} Normal [facility] Comment on above: Performed By: #### U AMIC #### [facility] [address] [place] [address] [address] Donis Mancini INR GUIDELINES SEE BELOW Normal [facility] Comment on above: Result Comment: NICCI RED INR: 2.0 - 3.0 CONDITIONS NOT LISTED BELOW 2.5 - 3.5 FOR PROSTHETIC HEART VALVE REPLACEMENT 2.5 - 3.5 RECURRENT THROMBOSIS Performed By: #### U AMIC #### [facility] [address] [place] [address] [address] Donis Mancini PT Coag (PPP) [Time] 9.8 s Normal 9.0-11.6 [facility] Comment on above: Performed By: #### U AMIC #### [facility] [address] [place] [address] [address] Donis Mancini PTTon 08-07-2022 aPTT Coag (Bld) [Time] 28.5 s Normal 22.3-36.2 [facility] Comment on above: Performed By: #### U AMIC #### [facility] [address] [place] [address] Dr. Donis Manciin UA (CLEAN/CATCH) QUICK MIXER OPERATOR/MICRO I F IND.on 08-07-2022 Bilirubin Ql (U) Negative Normal NEGATIVE [facility] Comment on above: Performed By: #### U AMIC #### [facility] [address] [place] [address] Dr. Donis Mancini Clarity (U) CLEAR Normal CLEAR [facility] Comment on above: Performed By: #### U AMIC #### [facility] [address] [place] [address] Dr. Donis Mancini Color (U) LT. YELLOW Normal YELLOW [facility] Comment on above: Performed By: #### U AMIC #### [facility] [address] [place] [address] Dr. Donis Mancini Glucose Ql (U) Negative Normal NEGATIVE [facility] Comment on above: Performed By: #### U AMIC #### [facility] [address] [place] [address] Dr. Donis Mancini Hemoglobin Ql (U) Negative Normal NEGATIVE [facility] Comment on above: Performed By: #### U AMIC #### [facility] [address] [place] [address] Dr. Donis Mancini Ketones Ql (U) Negative Normal NEGATIVE [facility] Comment on above: Performed By: #### U AMIC #### [facility] [address] [place] [address] Dr. Donis Mancini LEUKOCYTES Negative Normal NEGATIVE [facility] Comment on above: Performed By: #### U AMIC #### [facility] [address] [place] [address] Dr. Donis Mancini Nitrite Ql (U) Negative Normal NEGATIVE [facility] Comment on above: Performed By: #### U AMIC #### [facility] [address] [place] [address] Dr. Donis Mancini pH (U) 7.0 [pH] Normal 5-9 [facility] Comment on above: Performed By: #### U AMIC #### [facility] [address] [place] [address] Dr. Donis Mancini SPEC GRAVITY <=1.005 Abnormal 1.005-<=1.02 5 [facility] Comment on above: Performed By: #### U AMIC #### [facility] [address] [place] [address] [address] Donis Mancini UA PROTEIN Negative Normal NEGATIVE/ TRACE [facility] Comment on above: Performed By: #### U AMIC #### [facility] [address] [place] [address] [address] Donis Mancini UR MICRO IND NOT INDICATED Normal [facility] Comment on above: Performed By: #### U AMIC #### [facility] [address] [place] [address] [address] Donis Mancini Urobilinogen Qn (U) 0.2 {Sarah'U}/dL Normal 0.2 - 1. 0 [facility] Comment on above: Performed By: #### U AMIC #### [facility] [address] [place] [address] [address] Donis Mancini URIC ACID SERUMon 08-07-2022 Urate [Mass/Vol] 3.8 mg/dL Normal 2.6-6.0 The [facility] Comment on above: Performed By: #### C MP, URIC, LDH ####[facility] [address] [place] [address]Dr. Donis Mancini URINE T PROTEIN CREAT RATIOo n 08-07-2022 UR TOTAL PROTEIN <6.0 Normal <=12.0 [facility] Comment on above: Performed By: #### C T/NGNA #### [facility] [address] [place] [address] [address] Donis Mancini URINE CREAT 13.45 mg/dL Critically low 20.00-300.00 [facility] Comment on above: Performed By: #### C T/NGNA #### [facility] [address] [place] [address] Dr. Donis Mancini US PREG BIOPHY W [...] COCO STERN Date: 2022-08-01 08:31 Normal [facility] CHLAMYDIA/GONOCOCCUS INESSA (SW AB/URINE/PAPon 07-31-2022 Chlamydia trachomatis, INESSA Negative Normal Negative [facility] Comment on above: Performed By: #### C T/NGNA #### [facility] [address] [place] [address] Dr. Donis Mancini Neisseria gonorrhoeae, INESSA Negative Normal Negative [facility] Comment on above: Performed By: #### C T/NGNA #### [facility] [address] [place] [address] Dr. Donis Mancini VAGINITIS/VAGINOSIS DNA PROB Domenic 07-31-2022 Simeon species Negative Normal Negative [facility] Comment on above: Performed By: #### V AGINT ####[facility] [address] [place], [place] [address]Dr. Donis Mancini Gardnerella vaginalis Negative Normal Negative [facility] Comment on above: Performed By: #### V AGINT ####[facility] [address] [place], [place] [address]DrGene Mancini Trichomonas vaginalis Negative Normal Negative [facility] Comment on above: Performed By: #### V AGINT ####[facility] [address] [place], [place] [address]Dr. Donis Mancini GROUP B STREP CULTUREon S. agalactiae Ag Ql (Unsp spec) Culture Observations: NEGATIVE FOR GROUP B STREPTOCOCCUS. Normal [facility] Comment on above: Performed By: #### G BSCX #### [facility] [address] [place] [address] Dr. Donis Mancini US PREG BIOPHY W [...] COCO STERN Date: 2022-07-25 09:41 Normal [facility] US PREG GROWTHon 07-11-2022 US PREG [...] ESTEFANY BENNETT Date: 2022-07-11 19:28 Normal [facility] Covid-19 PCR (CVDTBH)on 06-26 SARS-CoV-2 (COVID-19) RNA INESSA+probe Ql (Unsp spec) Not detected Normal NOT DETECTED [facility] Comment on above: Result Comment: When [...] for this test is supported by the [place] of [employer] and Human Service's declaration that [...] used). Performed By: #### C T/TARAS #### [facility] [address] [place] [address] Dr. Donis Mancini GTT 3 HR PREGon 06-03-2022 Glucose [Mass/Vol] 94 mg/dL Normal 74-106 [facility] Comment on above: Performed By: #### U AMIC #### [facility] [address] [place] [address] Dr. Donis Mancini Glucose [Mass/Vol] 147 mg/dL Normal [facility] Comment on above: Performed By: #### U AMIC #### [facility] [address] [place] [address] Dr. Donis Mancini Glucose [Mass/Vol] 159 mg/dL Normal [facility] Comment on above: Performed By: #### U AMIC #### [facility] [address] [place] [address] Dr. Donis Mancini Glucose [Mass/Vol] 151 mg/dL Normal [facility] Comment on above: Performed By: #### U AMIC #### [facility] [address] [place] [address] Dr. Donis Mancini GLUCOSE - 1HRon 05-21-2022 Glucose [Mass/Vol] 141 mg/dL Critically high 74-106 [facility] Comment on above: Performed By: #### U AMIC #### [facility] [address] [place] [address] Dr. Donis Mancini HEMOGRAM AND PLATELon 2021 Hematocrit (Bld) [Volume fraction] 39.1 % Normal 36.0-48.0 [facility] Comment on above: Performed By: #### U AMIC #### [facility] [address] [place] [address] Dr. Donis Mancini Hemoglobin (Bld) [Mass/Vol] 13.1 g/dL Normal 12.0-16.0 [facility] Comment on above: Performed By: #### U AMIC #### [facility] [address] [place] [address] Dr. Donis Mancini MCH (RBC) [Entitic mass] 32.3 pg Normal 26.7-34.0 [facility] Comment on above: Performed By: #### U AMIC #### [facility] [address] [place] [address] Dr. Donis Mancini MCHC (RBC) [Mass/Vol] 33.5 g/dL Normal 29.9-35.2 [facility] Comment on above: Performed By: #### U AMIC #### [facility] [address] [place] [address] Dr. Donis Mancini MCV (RBC) [Entitic vol] 96.5 fL Normal 81.0-99.0 [facility] Comment on above: Performed By: #### U AMIC #### [facility] [address] [place] [address] Dr. Donis Mancini PLT 220 103/ul Normal 150-450 [facility] Comment on above: Performed By: #### U AMIC #### [facility] [address] [place] [address] Dr. Donis Mancini RBC 4.05 106/ul Critically low 4.20-5.40 [facility] Comment on above: Performed By: #### U AMIC #### [facility] [address] [place] [address] Dr. Donis Mancini WBC 12.8 103/ul Critically high 4.0-11.0 [facility] Comment on above: Performed By: #### U AMIC #### [facility] [address] [address] [address] Donis Mancini US PREG BIOPHYSICAL NO [...] ESTEFANY BENNETT Date: 2022-05-11 06:25 Normal [facility] CULTURE URINEon 05-10-2022 CULTURE URINE Culture Observations: MODERATE GROWTH OF MIXED GENITAL RAMBO. NO POTENTIAL PATHOGENS SEEN. Normal [facility] Comment on above: Performed By: #### U RCX #### [facility] [address] [address] [address] Donis Mancini UA RANDOM W/MICROSCOPICon BACTERIA LARGE Abnormal NONE SEEN [facility] Comment on above: Performed By: #### U AMIC ####[facility] [address] [place] [address]Dr. Donis Mancini Bilirubin Ql (U) Negative Normal NEGATIVE [facility] Comment on above: Performed By: #### U AMIC ####[facility] [address] [place] [address]Dr. Donis Mancini CAST NONE SEEN Normal NONE SEEN [facility] Comment on above: Performed By: #### U AMIC ####[facility] [address] [place] [address]Dr. Donis Mancini Clarity (U) CLEAR Normal CLEAR [facility] Comment on above: Performed By: #### U AMIC ####[facility] [address] [place] [address]Dr. Donis Mancini Color (U) YELLOW Normal YELLOW [facility] Comment on above: Performed By: #### U AMIC ####[facility] [address] [place] [address]Dr. Donis Mancini Crystals LM Nom (Urine sed) NONE SEEN Normal NONE SEEN [facility] Comment on above: Performed By: #### U AMIC ####[facility] [address] [place] [address]Dr. Donis Mancini Epithelial cells LM Ql (Urine sed) MODERATE Abnormal NONE SEEN /RARE [facility] Comment on above: Performed By: #### U AMIC ####[facility] [address] [place] [address]Dr. Donis Mancini Glucose Ql (U) 250 mg/dl Abnormal NEGATIVE [facility] Comment on above: Performed By: #### U AMIC ####[facility] [address] [place], [place] [address]Dr. Donis Mancini Hemoglobin Ql (U) TRACE-INTACT Abnormal NEGATIVE [facility] Comment on above: Performed By: #### U AMIC ####[facility] [address] [place], [place] [address]Dr. Donis Mancini Ketones Ql (U) Negative Normal NEGATIVE [facility] Comment on above: Performed By: #### U AMIC ####[facility] [address] [place], [place] [address]Dr. Donis Mancini LEUKOCYTES LARGE Abnormal NEGATIVE [facility] Comment on above: Performed By: #### U AMIC ####[facility] [address] [place] [id number]. Donis Mancini MUCOUS NONE SEEN Normal NONE SEEN [facility] Comment on above: Performed By: #### U AMIC ####[facility] [address] [place] [address]Dr. Donis Mancini Nitrite Ql (U) Negative Normal NEGATIVE [facility] Comment on above: Performed By: #### U AMIC ####[facility] [address] [place], [place] [address]Dr. Donis Mancini pH (U) 6.0 [pH] Normal 5-9 [facility] Comment on above: Performed By: #### U AMIC ####[facility] [address] [place], [place] [address]Dr. Donis Mancini RBC 2-5 Abnormal 0-2 [facility] Comment on above: Performed By: #### U AMIC ####[facility] [address] [place] [address]Dr. Donis Mancini SPEC GRAVITY <=1.005 Abnormal 1.005-<=1.02 5 [facility] Comment on above: Performed By: #### U AMIC ####[facility] [address] [place], [place] [address]Dr. Donis Mancini UA PROTEIN Negative Normal NEGATIVE/ TRACE [facility] Comment on above: Performed By: #### U AMIC ####[facility] [address] [place], [place] [address]Dr. Donis Mancini Urobilinogen Qn (U) 0.2 {Sarah'U}/dL Normal 0.2 - 1. 0 [facility] Comment on above: Performed By: #### U AMIC ####[facility] [address] [place], [place] [address]Dr. Donis Mancini WBC 10-20 Abnormal NONE SEEN [facility] Comment on above: Performed By: #### U AMIC ####[facility] [address] [place], [place] [address]Dr. Donis Mancini CULTURE URINEon 04-27-2022 CULTURE URINE Culture Observations: LIGHT GROWTH OF MIXED GENITAL RAMBO. NO POTENTIAL PATHOGENS SEEN. Normal [facility] Comment on above: Performed By: #### U RCX ####[facility] [address] [place], [place] [address]Dr. Donis Mancini UA (CLEAN/CATCH) QUICK MIXER OPERATOR/MICRO I F IND.on 04-27-2022 Bilirubin Ql (U) Negative Normal NEGATIVE [facility] Comment on above: Performed By: #### U ACSWENDY UMICRO ####[facility] [address] [place], [place] [address]Dr. Donis Mancini Clarity (U) CLEAR Normal CLEAR [facility] Comment on above: Performed By: #### U ACSIND UMICRO ####[facility] [address] [place], [place] [address]Dr. Donis Mancini Color (U) LT. YELLOW Normal YELLOW [facility] Comment on above: Performed By: #### U ACSIND, UMICRO ####[facility] [address] [place] [address]Dr. Donis Mancini Glucose Ql (U) Negative Normal NEGATIVE [facility] Comment on above: Performed By: #### U ACSIND, UMICRO ####[facility] [address] [place] [address]Dr. Donis Mancini Hemoglobin Ql (U) Negative Normal NEGATIVE [facility] Comment on above: Performed By: #### U ACSIND, UMICRO ####[facility] [address] [place] [address]Dr. Laceyjavi Mancini Ketones Ql (U) Negative Normal NEGATIVE [facility] Comment on above: Performed By: #### U ACSWENDY, UMICRO ####[facility] [address] [place], [place] [address]Dr. Donis Mancini LEUKOCYTES SMALL Abnormal NEGATIVE [facility] Comment on above: Performed By: #### U ACSWENDY, UMICRO ####[facility] [address] [place] [address]Dr. Donis Mancini Nitrite Ql (U) Negative Normal NEGATIVE [facility] Comment on above: Performed By: #### U ACSWENDY, UMICRO ####[facility] [address] [place] [address]Dr. Donis Mancini pH (U) 7.0 [pH] Normal 5-9 [facility] Comment on above: Performed By: #### U ACSWENDY, UMICRO ####[facility] [address] [place] [address]Dr. Laceyjavi Live SPEC GRAVITY 1.015 Normal 1.005-<=1.02 5 [facility] Comment on above: Performed By: #### U ACSWENDY, UMICRO ####[facility] [address] [place] [address]Dr. Donis Mancini UA PROTEIN Negative Normal NEGATIVE/ TRACE [facility] Comment on above: Performed By: #### U ACSWENDY, UMICRO ####[facility] [address] [place] [address]Dr. Laceyjavi Live UR MICRO IND INDICATED Normal [facility] Comment on above: Performed By: #### U ACSWENDY, UMICRO ####[facility] [address] [place] [address]Dr. Laceyjavi Live Urobilinogen Qn (U) 0.2 {Sarah'U}/dL Normal 0.2 - 1. 0 [facility] Comment on above: Performed By: #### U ACSWENDY, UMICRO ####[facility] [address] [place] [address]Dr. Donis Mancini URINE MICROSCOPIC ONLYon BACTERIA MODERATE Abnormal NONE SEEN [facility] Comment on above: Performed By: #### U ACSWENDY, UMICRO ####[facility] [id number] [place] [address]Dr. Donis Mancini Bacteria identified Cx Nom (U) INDICATED Normal [facility] Comment on above: Performed By: #### U ACSWENDY UMICRO ####[facility] [address] [place] [address] [address]Dr. Donis Mancini CAST NONE SEEN Normal NONE SEEN [facility] Comment on above: Performed By: #### U ACSWENDY, UMICRO ####[facility] [address] [place] [address] [address]Dr. Donis Mancini Crystals LM Nom (Urine sed) NONE SEEN Normal NONE SEEN [facility] Comment on above: Performed By: #### U NELSON UMICRO ####[facility] [address] [place] [address]Dr. Donis Mancini Epithelial cells LM Ql (Urine sed) MODERATE Abnormal NONE SEEN /RARE [facility] Comment on above: Performed By: #### U ACSWENDY UMICRO ####[facility] [address] [place] [address] [address]Dr. Donis Mancini MUCOUS NONE SEEN Normal NONE SEEN [facility] Comment on above: Performed By: #### U ACSWENDY UMICRO ####[facility] [address] [place], [place] [address]Dr. Donis Mancini RBC NONE SEEN Abnormal 0-2 [facility] Comment on above: Performed By: #### U DONNA DAMON ####[facility] [address] [place], [place] [address]Az. Donis Mancini WBC 2-5 Abnormal NONE SEEN [facility] Comment on above: Performed By: #### U DONNA DAMON ####[facility] [address] [place], [place] [address]Ll. Donis Mancini US KIDNEYSon 04-27-2022 US KIDNEYS [...] ANDREAS AN Date: 2022-04-27 17:48 Normal [facility] CULTURE URINEon 04-16-2022 CULTURE URINE Isolate 1 [...] Trimethoprim/Sulfame thoxazole <=20 S F Normal [facility] Comment on above: Performed By: #### U RCX #### [facility] [address] [place], [place] [address] Dr. Donis Mancini US PREG ANATOMY SINGLEon [...] ESTEFANY BENNETT Date: 2022-04-12 22:22 Normal [facility] UA RANDOM W/MICROSCOPICon BACTERIA SMALL Abnormal NONE SEEN [facility] Comment on above: Performed By: #### U AMIC #### [facility] [address] [place], [place] [address] Dr. Donis Mancini Bilirubin Ql (U) Negative Normal NEGATIVE The [facility] Comment on above: Performed By: #### U AMIC #### [facility] [address] [place] [address] [address] Donis Mancini CAST NONE SEEN Normal NONE SEEN [facility] Comment on above: Performed By: #### U AMIC #### [facility] [address] [address] [address] Donis Mancini Clarity (U) CLEAR Normal CLEAR [facility] Comment on above: Performed By: #### U AMIC #### [facility] [address] [address] [address] Donis Mancini Color (U) LT. YELLOW Normal YELLOW [facility] Comment on above: Performed By: #### U AMIC #### [facility] [address] [address] [address] Donis Mancini Crystals LM Nom (Urine sed) NONE SEEN Normal NONE SEEN [facility] Comment on above: Performed By: #### U AMIC #### [facility] [address] [address] [address] Donis Mancini Epithelial cells LM Ql (Urine sed) FEW Abnormal NONE SEEN /RARE [facility] Comment on above: Performed By: #### U AMIC #### [facility] [address] [place] [address] Dr. Donis Mancini Glucose Ql (U) Negative Normal NEGATIVE The [facility] Comment on above: Performed By: #### U AMIC #### [facility] [address] [address] [address] Donis Mancini Hemoglobin Ql (U) Negative Normal NEGATIVE [facility] Comment on above: Performed By: #### U AMIC #### [facility] [address] [address] [address] Donis Mancini Ketones Ql (U) Negative Normal NEGATIVE [facility] Comment on above: Performed By: #### U AMIC #### [facility] [address] [address] [address] Donis Mancini LEUKOCYTES LARGE Abnormal NEGATIVE [facility] Comment on above: Performed By: #### U AMIC #### [facility] [address] [place] [address] [address] Donis Mancini MUCOUS NONE SEEN Normal NONE SEEN [facility] Comment on above: Performed By: #### U AMIC #### [facility] [address] [address] [address] Donis Mancini Nitrite Ql (U) Negative Normal NEGATIVE [facility] Comment on above: Performed By: #### U AMIC #### [facility] [address] [place] [address] Dr. Donis Mancini pH (U) 5.5 [pH] Normal 5-9 [facility] Comment on above: Performed By: #### U AMIC #### [facility] [address] [place] [address] Dr. Donis Mancini RBC 0-2 Normal 0-2 [facility] Comment on above: Performed By: #### U AMIC #### [facility] [address] [place] [address] Dr. Donis Mancini SPEC GRAVITY <=1.005 Abnormal 1.005-<=1.02 5 [facility] Comment on above: Performed By: #### U AMIC #### [facility] [address] [place] [address] Dr. Donis Mancini UA PROTEIN Negative Normal NEGATIVE/ TRACE [facility] Comment on above: Performed By: #### U AMIC #### [facility] [address] [place] [address] Dr. Donis Mancini Urobilinogen Qn (U) 0.2 {Sarah'U}/dL Normal 0.2 - 1. 0 [facility] Comment on above: Performed By: #### U AMIC #### [facility] [address] [place] [address] Dr. Donis Mancini WBC 5-10 Abnormal NONE SEEN [facility] Comment on above: Performed By: #### U AMIC #### [facility] [address] [place] [address] Dr. Donis Mancini HEP B SURFACE ANTIGEN SCREEN on 01-23-2022 HBsAg Screen Negative Normal Negative [facility] Comment on above: Performed By: #### U AMIC #### [facility] [address] [place], [place] [address] Dr. Donis Mancini HEPATITIS C VIRUS AB W/ REFL EX QUANTon 01-23-2022 HCV AB 0.1 s/co ratio Normal 0.0-0.9 [facility] Comment on above: Performed By: #### H CVPCRR ####[facility] [address] [place] [id number]. Donis Mancini Interpretation: Comment Normal [facility] Comment on above: Result Comment: Nega tive Not infected with HCV, unless recent infection is suspected or other evidence exists to indicate HCV infection. Performed By: #### H CVPCRR ####[facility] [address] [place] [address] [address]Dr. Donis Mancini HIV 1 AND 2 WITH REFLEXon HIV Screen 4th Generation wRfx Non-Reactive Normal Non Reactive [facility] Comment on above: Result Comment: HIV Negative HIV-1/HIV-2 antibodies and HIV-1 p24 antigen were NOT detected. There is no laboratory evidence of HIV infection. Performed By: #### H IV12 ####[facility] [address] [place], [place] [address]Dr. Donis Mancini RPR QUANTon 01-23-2022 Rapid Plasma [...] utilized, such as Treponema pallidum (Syphilis) Screening [place] (109060) or Rapid Plasma Reagin (RPR) Test With Reflex to Quantitative RPR and Confirmatory Treponema pallidum Antibodies (618800). Performed By: #### R PRQ ####[facility] [address] [place] [address]DrGene Mancini RUBELLA AB IGGon 01-23-2022 Rubella Antibodies, IgG 1.60 index Normal Immune >0.99 [facility] Comment on above: Result Comment: Non- immune <0.90 Equivocal 0.90 - 0.99 Immune >0.99 Performed By: #### U AMIC #### [facility] [address] [place] [address] Dr. Donis Mancini CBC AUTO DIFFon 01-22-2022 BASO # 0.1 103/ul Normal 0.0-0.1 [facility] Comment on above: Performed By: #### U AMIC #### [facility] [address] [place] [address] Dr. Donis Mancini Basophils/100 WBC (Bld) 0.5 % Normal 0.2-2.0 [facility] Comment on above: Performed By: #### U AMIC #### [facility] [address] [place] [address] Dr. Donis Mancini EO # 0.6 103/ul Normal 0.0-0.7 [facility] Comment on above: Performed By: #### U AMIC #### [facility] [address] [place] [address] Dr. Donis Mancini Eosinophils/100 WBC (Bld) 5.1 % Normal 0.9-7.0 [facility] Comment on above: Performed By: #### U AMIC #### [facility] [address] [place] [address] Dr. Donis Mancini Erythrocyte distribution width (RBC) [Ratio] 12.0 % Normal 11.0-15.0 [facility] Comment on above: Performed By: #### U AMIC #### [facility] [address] [place] [address] Dr. Donis Mancini Hematocrit (Bld) [Volume fraction] 45.8 % Normal 36.0-48.0 [facility] Comment on above: Performed By: #### U AMIC #### [facility] [address] [place] [address] Dr. Donis Mancini Hemoglobin (Bld) [Mass/Vol] 15.3 g/dL Normal 12.0-16.0 [facility] Comment on above: Performed By: #### U AMIC #### [facility] [address] [place] [address] [address] Donis Mancini IG # 0.03 10e3/ul Normal 0.00-0.03 [facility] Comment on above: Performed By: #### U AMIC #### [facility] [address] [place] [address] Dr. Donis Mancini IG % 0.3 % Normal 0.0-0.5 [facility] Comment on above: Performed By: #### U AMIC #### [facility] [address] [place] [address] Dr. Donis Mancini LYMPH # 1.7 103/ul Normal 1.2-3.8 [facility] Comment on above: Performed By: #### U AMIC #### [facility] [address] [place] [address] Dr. Donis Mancini Lymphocytes/100 WBC (Bld) 15.9 % Critically low 20.5-60.0 [facility] Comment on above: Performed By: #### U AMIC #### [facility] [address] [place] [address] Dr. Donis Mancini MANUAL DIFF REQ NO Normal [facility] Comment on above: Performed By: #### U AMIC #### [facility] [address] [place] [address] Dr. Donis Mancini MCH (RBC) [Entitic mass] 31.5 pg Normal 26.7-34.0 [facility] Comment on above: Performed By: #### U AMIC #### [facility] [address] [place] [address] Dr. Donis Mancini MCHC (RBC) [Mass/Vol] 33.4 g/dL Normal 29.9-35.2 [facility] Comment on above: Performed By: #### U AMIC #### [facility] [address] [place] [address] Dr. Donis Mancini MCV (RBC) [Entitic vol] 94.2 fL Normal 81.0-99.0 [facility] Comment on above: Performed By: #### U AMIC #### [facility] [address] [place] [address] Dr. Donis Mancini MONO # 0.6 103/ul Normal 0.3-0.8 [facility] Comment on above: Performed By: #### U AMIC #### [facility] [address] [place] [address] Dr. Donis Mancini Monocytes/100 WBC (Bld) 5.8 % Normal 1.7-12.0 [facility] Comment on above: Performed By: #### U AMIC #### [facility] [address] [place] [address] Dr. Donis Mancini NEUT # 7.8 103/ul Critically high 1.4-6.5 [facility] Comment on above: Performed By: #### U AMIC #### [facility] [address] [place] [address] Dr. Donis Mancini Neutrophils/100 WBC (Bld) 72.4 % Normal 43.0-75.0 [facility] Comment on above: Performed By: #### U AMIC #### [facility] [address] [place] [address] Dr. Donis Mancini Platelet mean volume (Bld) [Entitic vol] 9.9 fL Normal 9.5-13.5 [facility] Comment on above: Performed By: #### U AMIC #### [facility] [address] [place] [address] Dr. Donis Mancini PLT 281 103/ul Normal 150-450 [facility] Comment on above: Performed By: #### U AMIC #### [facility] [address] [place] [address] Dr. Donis Mancini RBC 4.86 106/ul Normal 4.20-5.40 [facility] Comment on above: Performed By: #### U AMIC #### [facility] [address] [place] [address] Dr. Donis Mancini WBC 10.8 103/ul Normal 4.0-11.0 [facility] Comment on above: Performed By: #### U AMIC #### [facility] [address] [place] [address] Dr. Donis Mancini CULTURE URINEon 01-22-2022 CULTURE URINE Culture Observations: LIGHT GROWTH OF MIXED GENITAL RAMBO. NO POTENTIAL PATHOGENS SEEN. Normal [facility] Comment on above: Performed By: #### U RCX #### [facility] [address] [place] [address] [address] Donis Mancini GLYCOHEMOGLOBIN A1Con 2021 ADA RECOMMENDATION SEE BELOW Normal [facility] Comment on above: Result Comment: ADA RECOMMENDED LIMIT 4.0 - 6.0 ADA THERAPEUTIC TARGET < 7.0 ACTION SUGGESTED > 7.0 Performed By: #### A 1C ####[facility] [address] [place] [id number]. Donis Mancini Glucose [Mass/Vol] 100 mg/dL Normal The [facility] Comment on above: Performed By: #### A 1C ####[facility] [address] [place] [id number]. Donis Mancini HbA1c (Bld) [Mass fraction] 5.1 % Normal 4.5-6.2 [facility] Comment on above: Performed By: #### A 1C ####[facility] [address] [place] [id number]. Donis Mancini SEAN BOX TEST PT SEND OUTo n 01-22-2022 SENT TO REF LAB 01/22/2022 Normal [facility] Comment on above: Performed By: #### N BOX ####[facility] [address] [place] [id number]. Donis Mancini TYPE AND SCREENon 01-22-2022 TYPE AND SCREEN Negative Normal [facility] Comment on above: Performed By: #### T NS #### [facility] [address] [address] [address] Donis Mancini US PREG TVon 01-17-2022 [...] COCO STERN Date: 2022-01-17 09:34 Normal [facility] Provider Letteron 04-06-2021 Provider Letter April 06, 2021 Dear Vimal, We have been trying to reach you with no success. It is important that you return our call regarding your appointment upon receiving this letter. Also, at the time of your call, please provide us with your current information. Thank you for your prompt attention to this matter. Sincerely, [facility] [address] [place], [place] [id number] Normal [facility] Ambulatory Clinical Summaryo n 03-10-2021 Ambulatory Clinical Summary {[id number]}CD:[id number] Normal [facility] Ambulatory Clinical Summaryo n 03-05-2021 Ambulatory Clinical Summary {[id number]}CD:[id number] Normal [facility] Gynecology Phone Visit- Tele healthon [...] only communication with the patient located at [address] [place] [address] [place] [id number], with no one else. 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 CODING DATE: 12/18/2020 FINAL [facility] DSC STATUS: Home (Routine DC) PAYOR: [place] ADMIT DX: REASON FOR VISIT DX: U07.1 [...] Date Saved: 12/18/2020 12:44 pm Normal [facility] Physician Orderon 12-16-2020 Physician Order [id number] #[id number]:127 Normal [facility] Rapid COVID Antigen ([facility])on 12-16-2020 Rapid COV Int NEG Ctl Pass Normal Fis [facility] Comment on above: Performed By: #### 2 [id number] #### [facility] [address] [place] [address] Rapid COV Int POS Ctl Pass Normal Fis [facility] Comment on above: Performed By: #### 2 [id number] #### [facility] [address] [place] [address] SARS-CoV-2 (COVID-19) RNA INESSA+probe Ql (Unsp spec) Detected Abnormal Not Detected [facility] Comment on above: Result Comment: Left a message for callback. 12/16/2020 11:42:47 EDT Results faxed to infection control. The [employer] Veritor? System for Rapid Detection of SARS-CoV-2 [...] or revoked sooner. Performed By: #### 2 [id number] #### [facility] [address] [place] [address] Employed in Healthcare Unknown Normal [facility] Comment on above: Performed By: #### 2 [id number] #### [facility] [address] [place] [address] First Test Unknown Normal [facility] Comment on above: Performed By: #### 2 [id number] #### [facility] [address] [place] [address] Hospitalized? NO Normal [facility] Comment on above: Performed By: #### 2 [id number] #### [facility] [address] [place] [address] ICU NO Normal [facility] Comment on above: Performed By: #### 2 [id number] #### [facility] [address] [place] [address] ? Unknown Normal [facility] Comment on above: Performed By: #### 2 [id number] #### [facility] [address] [place] [address] Resides in a Congregate Care Setting Unknown Normal [facility] Comment on above: Performed By: #### 2 [id number] #### [facility] [address] [place] [address] Symptomatic as defined by CDC YES Normal [facility] Comment on above: Performed By: #### 2 [id number] #### [facility] [address] [place] [address] Ambulatory Clinical Summaryo n 11-25-2020 Ambulatory Clinical Summary {[id number]}CD:[id number] Normal [facility] Vital Signs Date Time Vital Sign Value Performing Clinician Facility 05-28-2025 10:48-0400 Body mass index (BMI) [Ratio] 32.06 kg/m2 Jose Michael DO Work Phone: [facility] 05-28-2025 10:48-0400 Body weight 82.1 kg Jose Michael DO Work Phone: [facility] 05-28-2025 10:48-0400 Diastolic blood pressure 80 mm[Hg] Jose Michael DO Work Phone: [facility] 05-28-2025 10:48-0400 Systolic blood pressure 136 mm[Hg] Jose Michael DO Work Phone: [facility] 05-22-2025 15:02-0400 Body mass index (BMI) [Ratio] 31.49 kg/m2 Jose Michael DO Work Phone: [facility] 05-22-2025 15:02-0400 Body weight 80.63 kg Jose Michael DO Work Phone: [facility] 05-22-2025 15:02-0400 Diastolic blood pressure 92 mm[Hg] Jose Michael DO Work Phone: [facility] 05-22-2025 15:02-0400 Systolic blood pressure 138 mm[Hg] Jose Michael DO Work Phone: [facility] 05-14-2025 14:59-0400 Body mass index (BMI) [Ratio] 31.35 kg/m2 Jose Michael DO Work Phone: [facility] 05-14-2025 14:59-0400 Body weight 80.29 kg Jose Michael DO Work Phone: [facility] 05-14-2025 14:59-0400 Diastolic blood pressure 90 mm[Hg] Jose Michael DO Work Phone: [facility] 05-14-2025 14:59-0400 Systolic blood pressure 140 mm[Hg] Jose Michael DO Work Phone: [facility] 05-13-2025 16:11-0400 Body weight 79.83 kg Marjorie Rico RN Work Phone: [facility] [place] 04-30-2025 11:52-0400 Body mass index (BMI) [Ratio] 31 kg/m2 Rossana Phoenix PA Work Phone: [facility] 04-30-2025 11:52-0400 Body weight 79.38 kg Rossana Phoenix PA Work Phone: [facility] 04-30-2025 11:52-0400 Diastolic blood pressure 94 mm[Hg] Rossana Phoenix PA Work Phone: [facility] 04-30-2025 11:52-0400 Systolic blood pressure 140 mm[Hg] Rossana Phoenix PA Work Phone: [facility] 04-11-2025 15:38-0400 Body mass index (BMI) [Ratio] 30.2 kg/m2 Rossana Phoenix PA Work Phone: [facility] 04-11-2025 15:38-0400 Body weight 77.34 kg Rossana Phoenix PA Work Phone: [facility] 04-11-2025 15:38-0400 Diastolic blood pressure 100 mm[Hg] Rossana Rachel PA Work Phone: [facility] 04-11-2025 15:38-0400 Systolic blood pressure 142 mm[Hg] Rossana Rachel PA Work Phone: [facility] 03-14-2025 11:36-0400 Body mass index (BMI) [Ratio] 29.23 kg/m2 Jose Michael DO Work Phone: [facility] 03-14-2025 11:36-0400 Body weight 74.84 kg Jose Michael DO Work Phone: [facility] 03-14-2025 11:36-0400 Diastolic blood pressure 76 mm[Hg] Jose Michael DO Work Phone: [facility] 03-14-2025 11:36-0400 Systolic blood pressure 112 mm[Hg] Jose Michael DO Work Phone: [facility] 02-20-2025 16:08-0400 Body mass index (BMI) [Ratio] 28.83 kg/m2 Rossana Rachel PA Work Phone: [facility] 02-20-2025 16:08-0400 Body weight 73.82 kg Rossana Rachel PA Work Phone: [facility] 02-20-2025 16:08-0400 Diastolic blood pressure 82 mm[Hg] Rossana Rachel PA Work Phone: [facility] 02-20-2025 16:08-0400 Systolic blood pressure 110 mm[Hg] Rossana Rachel PA Work Phone: [facility] 01-14-2025 15:42-0400 Body mass index (BMI) [Ratio] 27.3 kg/m2 Jose Michael DO Work Phone: [facility] 01-14-2025 15:42-0400 Body weight 69.91 kg Jose Michael DO Work Phone: [facility] 01-14-2025 15:42-0400 Diastolic blood pressure 70 mm[Hg] Jose Michael DO Work Phone: [facility] 01-14-2025 15:42-0400 Systolic blood pressure 120 mm[Hg] Jose Michael DO Work Phone: [facility] 08-20-2024 10:55-0500 Body mass index (BMI) [Ratio] 25.93 kg/m2 Rossana Phoenix PA Work Phone: [facility] 08-20-2024 10:55-0500 Body weight 66.41 kg Rossana Rachel PA Work Phone: [facility] 08-20-2024 10:55-0500 Diastolic blood pressure 70 mm[Hg] Rossana BISWAS Work Phone: [facility] 08-20-2024 10:55-0500 Systolic blood pressure 120 mm[Hg] Rossana BISWAS Work Phone: [facility] 08-06-2024 09:38-0500 Body mass index (BMI) [Ratio] 25.47 kg/m2 Jose Michael DO Work Phone: [facility] 08-06-2024 09:38-0500 Body weight 65.23 kg Jose Michael DO Work Phone: [facility] 08-06-2024 09:38-0500 Diastolic blood pressure 70 mm[Hg] Jose Michael DO Work Phone: [facility] 08-06-2024 09:38-0500 Systolic blood pressure 120 mm[Hg] Jose Michael DO Work Phone: [facility] 06-29-2024 09:12-0400 Body mass index (BMI) [Ratio] 24.58 kg/m2 [facility] Nurse [facility] 06-29-2024 09:12-0400 Body weight 62.94 kg [facility] Nurse [facility] 06-29-2024 09:12-0400 Diastolic blood pressure 72 mm[Hg] [facility] Nurse [facility] 06-29-2024 09:12-0400 Systolic blood pressure 122 mm[Hg] [facility] Nurse [facility] 12-26-2022 13:45-0400 Body height 160.02 cm Jennifer Huston Other [employer] Other 12-26-2022 13:45-0400 Body mass index (BMI) [Ratio] 27.45 kg/m2 Jennifer Huston Other [employer] Other 12-26-2022 13:45-0400 Body temperature 97 [degF] Jennifer Huston Other [employer] Other 12-26-2022 13:45-0400 Body weight 70.31 kg Jennifer Huston Other [employer] Other 12-26-2022 13:45-0400 Diastolic blood pressure 89 mm[Hg] Jennifer Huston Other [employer] Other 12-26-2022 13:45-0400 Respiratory rate 18 /min Jennifer Huston Other [employer] Other 12-26-2022 13:45-0400 SaO2% (BldA) [Mass fraction] 100 % Jennifer Huston Other [employer] Other 12-26-2022 13:45-0400 Systolic blood pressure 135 mm[Hg] Jennifer Huston Other [employer] Other Encounters Encounter Date Encounter Type Care Provider Facility Start: 05-31-2025 End: 05-31-2025 Chart abstracting Scanning Provider External [facility] Start: 05-28-2025 End: 05-28-2025 Bamboo flowsheet Jose Michael DO Work Phone: [facility] Start: 05-28-2025 End: 05-28-2025 Bamboo flowsheet Jose Michael DO Work Phone: [facility] Start: 05-28-2025 End: 05-28-2025 Telephone encounter Chante Muse LD Work Phone: Maternal- Medicine at [facility] Start: 05-28-2025 End: 05-28-2025 ambulatory JOSE MICHAEL Not Available Start: 05-28-2025 End: 05-28-2025 flow sheet Jose Michael DO Work Phone: ARJUN PANG Comment on above: Third trimester preg alysa ([facility]); 32 weeks gestation of ([facility]); Gestational diabetes mellitus (GDM), antepartum, gestational diabetes method of control unspecified ([facility]); induced hypertension, antepartum ([facility]) Start: 05-25-2025 End: 05-25-2025 Clinisync Result Encounter Rossana BISWAS Work Phone: [facility] External Department Unsolicited Start: 05-25-2025 End: 05-25-2025 Clinisync Result Encounter Rossana BISWAS Work Phone: [facility] External Department Unsolicited Start: 05-22-2025 End: 05-22-2025 ambulatory JOSE MICHAEL Not Available Start: 05-22-2025 End: 05-22-2025 flow sheet Jose Michael DO Work Phone: ARJUN PANG Comment on above: Third trimester preg alysa ([facility]); 31 weeks gestation of ([facility]) Start: 05-22-2025 End: 05-22-2025 Bamboo flowsheet Jose Michael DO Work Phone: ARJUN PANG Start: 05-22-2025 End: 05-22-2025 Bamboo flowsheet Jose Michael DO Work Phone: AJRUN PANG Start: 05-21-2025 End: 05-21-2025 Telephone encounter Chante TEJEDA Work Phone: Maternal- Medicine at [facility] Start: 05-20-2025 End: 05-20-2025 Clinisync Result Encounter Jose Michael DO Work Phone: [facility] External Department Unsolicited Start: 05-20-2025 End: 05-20-2025 Clinisync Result Encounter Jose Michael DO Work Phone: [facility] External Department Unsolicited Start: 05-18-2025 End: 05-18-2025 Clinisync Result Encounter Jose Michael DO Work Phone: [facility] External Department Unsolicited Start: 05-18-2025 End: 05-18-2025 Clinisync Result Encounter Jose Hendrickso DO Work Phone: [facility] External Department Unsolicited Start: 05-14-2025 End: 05-14-2025 ambulatory JOSE RODRIGUEZ Not Available Start: 05-14-2025 End: 05-14-2025 flow sheet Jose Michael DO Work Phone: [facility] Comment on above: Third trimester preg alysa ([facility]); 30 weeks gestation of ([facility]); induced hypertension, antepartum ([facility]) Start: 05-14-2025 End: 05-14-2025 Bamboo flowsheet Jose Michael DO Work Phone: [facility] Start: 05-14-2025 End: 05-14-2025 Bamboo flowsheet Jose Hendrickso DO Work Phone: [facility] Start: 05-13-2025 End: 05-13-2025 ambulatory Marjorie Rico RN Work Phone: Maternal- Medicine at [facility] Comment on above: Gestational diabetes mellitus (GDM) in third trimester, gestational diabetes method of control unspecified Start: 05-11-2025 End: 05-11-2025 Clinisync Result Encounter Rossana BISWAS Work Phone: [facility] External Department Unsolicited Start: 05-11-2025 End: 05-11-2025 Clinisync Result Encounter Rossana BISWAS Work Phone: [facility] External Department Unsolicited Start: 05-10-2025 End: 05-10-2025 Chart abstracting Scanning Provider External Maternal- Medicine at [facility] Start: 05-06-2025 End: 05-06-2025 Clinisync Result Encounter Rossana BISWAS Work Phone: [facility] External Department Unsolicited Start: 05-06-2025 End: 05-06-2025 Clinisync Result Encounter Rossana Phoenix PA Work Phone: [facility] External Department Unsolicited [...] flowsheet Rossana Rachel PA Work Phone: [facility] Start: 04-30-2025 End: 04-30-2025 Bamboo flowsheet Rossana Ramos TRUE Work Phone: [facility] Start: 04-30-2025 End: 04-30-2025 ambulatory ROSSANA RAMOS Not Available Start: 04-30-2025 End: 04-30-2025 Patient encounter status Rossana Rachel PA Work Phone: [facility] Work Phone: Start: 04-30-2025 End: 04-30-2025 flow sheet Rossana Rachel PA Work Phone: [facility] Comment on [...] Comment on above: Second trimester pre gnancy ([facility]); 27 weeks gestation of ([facility]); induced hypertension, antepartum ([facility]) Start: 04-25-2025 End: 04-25-2025 ambulatory ROSSANA RAMOS Not Available Start: 04-25-2025 End: 04-25-2025 Bamboo flowsheet Rossana Ramos PA Work Phone: [facility] Start: 04-25-2025 End: 04-25-2025 Bamboo flowsheet Rossana BISWAS Work Phone: [facility] Start: 04-11-2025 End: 04-11-2025 ambulatory ROSSANA RAMOS Not Available Start: 04-11-2025 End: 04-11-2025 flow sheet Rossana BISWAS Work Phone: [facility] Comment on above: Second trimester pre gnancy ([facility]); 25 weeks gestation of ([facility]); Diabetes mellitus screening; Elevated BP without [...] Comment on above: Second trimester pre gnancy ([facility]); 21 weeks gestation of ([facility]) Start: 03-08-2025 End: 03-08-2025 Clinisync Result Encounter Jose Michael DO Work Phone: [facility] External Department Unsolicited Start: 03-08-2025 End: 03-08-2025 Clinisync Result Encounter Jose Michael DO Work Phone: [facility] External Department Unsolicited Start: 02-20-2025 End: 02-20-2025 Patient encounter procedure Rossana BISWAS Work Phone: [facility] Start: 02-20-2025 End: 02-20-2025 flow sheet [...] Start: 08-10-2024 End: 08-10-2024 ambulatory PHYSICIAN NO [facility] Work Phone: Start: 08-10-2024 End: 08-10-2024 Departed Referred PHYSICIAN NO [facility] Start: 08-06-2024 End: 08-06-2024 Bamboo flowsheet [...] [id number] Start: 06-29-2024 End: 06-29-2024 ambulatory JOSE HENDRICKSO Not Available Start: 12-26-2022 Office outpatient ne w 20 minutes Jennifer Huston [facility] Start: 12-26-2022 End: 12-26-2022 ambulatory Jennifer Huston Other [facility] Other Start: 12-26-2022 End: 12-26-2022 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 Work Phone: [...] Date Procedure Procedure Detail Performing Clinician Start: 05-28-2025 Urnls dip stick/tabl et rgnt non-auto w/o micrscp Jose Michael DO Work Phone: Start: 05-25-2025 US OB BPP W NON-STRESS Rossana Ramos PA Work Phone: Start: 05-22-2025 Urnls dip stick/tabl et rgnt [...] Phone: Start: 03-08-2025 US OB ANATOMY Jose Faz io DO Work Phone: Start: 03-08-2025 US OB CERVICAL LENGTH C willie Rodriguez DO Work Phone: Start: 02-20-2025 RECURRENT VAGINITIS [...] micrscp Jose Hendrickso DO Work Phone: Start: 01-05-2025 Antibody rubella Not In System Ref Prov Start: 01-05-2025 Antibody screen Scannin g External Start: 01-05-2025 Drug scrn 1+ class nonchromo Not In System Ref Prov Start: 01-05-2025 FREE CELL DNA (NON-[facility] SEND OUT) Not In System Ref Prov Start: 01-05-2025 Hemoglobin glycosyla fernando a1c Scanning Provider External Start: 01-05-2025 HIV 1&2 AB/AG SCREEN (P24 AG) Not In System Ref Prov Start: 01-05-2025 Iaad ia hepatitis b surface antigen Not In System Ref Prov Start: 01-05-2025 TYPE AND SCREEN Not In System Ref Prov Start: 01-05-2025 UNLISTED LAB TEST Not I n System Ref Prov Start: 01-05-2025 ALL CBC WITH AUTO DIFF Jose Hendrickso DO Work Phone: Start: 11-21-2024 TBH PREG [...] Jose Michael DO Work Phone: Start: 07-21-2024 TB DRUG SCREEN RAPI D (URINE) [facility] DO Work Phone: Start: 06-29-2024 End: 06-29-2024 Urnls dip stick/tablet rgnt non-auto w/o micrscp 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 DO Work Phone: Start: 08-10-2022 Delivery [...] neoplasm of cervix Pap Smear [facility] Start: 06-12-2025 End: 06-12-2025 Patient encounter procedure 06/12/2025 3:00 PM EDT Routine [facility] [address] [place] [phone] Rossana Ramos PA [address] [place] [address] [facility] Start: 06-04-2025 End: 06-04-2025 Patient encounter procedure 06/04/2025 1:00 PM EDT Appointment [facility] [address] [facility] [place] [id number] Jose Rodriguez, DO [address] [place] [address] [facility] Start: 06-04-2025 Subsequent hospital visit by physician 06/04/2025 1:00 PM EDT Hospital Encounter [facility] [address] [place] [phone] Jose Rodriguez, DO [address] [place] [address] [facility] Start: 05-28-2025 End: 05-28-2025 Patient encounter procedure 05/28/2025 10:30 AM EDT Routine [facility] [address] [place] [phone] Joes Rodriguez, [address] [place] [address] [facility] Start: 05-27-2025 Influenza vaccination [facility] Start: 05-22-2025 End: 05-22-2025 Patient encounter procedure 05/22/2025 2:40 PM EDT Routine [facility] [address] [place] [phone] Jose Rodriguez, DO [address] [place] [place] [address] [facility] [place] [facility] Start: 05-14-2025 End: 05-14-2025 Patient encounter procedure 05/14/2025 2:40 PM EDT Routine [facility] [address] [place] [address] Jose Rodriguez, DO [address] [place] [address] [facility] [place] [facility] Start: 05-14-2025 End: 05-14-2026 Alanine aminotransferase [Enzymatic activity/volume] in Serum or Plasma ALT Lab Routine induced hypertension, antepartum ([facility]) Expected: 05/14/2025 (Approximate), Expires: 05/14/2026 [facility] Comment on above: Expected: 05/14/2025 (Approximate), Expires: 05/14/2026 Start: 05-14-2025 End: 05-14-2026 Aspartate aminotransferase [Enzymatic activity/volume] in Serum or Plasma AST Lab Routine induced hypertension, antepartum ([facility]) Expected: 05/14/2025 (Approximate), Expires: 05/14/2026 [facility] Comment on above: Expected: 05/14/2025 (Approximate), Expires: 05/14/2026 Start: 05-14-2025 End: 05-14-2026 CBC W Auto Differential panel - Blood CBC and differential Lab Routine induced hypertension, antepartum ([facility]) Expected: 05/14/2025 (Approximate), Expires: 05/14/2026 [facility] Comment on above: Expected: 05/14/2025 (Approximate), Expires: 05/14/2026 Start: 05-14-2025 End: 05-14-2026 Creatinine [Mass/volume] in Serum or Plasma Creatinine Lab Routine induced hypertension, antepartum ([facility]) Expected: 05/14/2025 (Approximate), Expires: 05/14/2026 [facility] Work Phone: Comment on above: Expected: 05/14/2025 (Approximate), Expires: 05/14/2026 Start: 05-14-2025 End: 05-14-2026 Lactate dehydrogenase [Enzymatic activity/volume] in Serum or Plasma by Lactate to pyruvate reaction Lactate dehydrogenase Lab Routine induced hypertension, antepartum ([facility]) Expected: 05/14/2025, Expires: 05/14/2026 [facility] Comment on above: Expected: 05/14/2025 , Expires: 05/14/2026 Start: 05-14-2025 End: 05-14-2026 Protein, urine, 24 hour Protein, urine, 24 hour Lab Routine induced hypertension, antepartum ([facility]) Expected: 05/14/2025 (Approximate), Expires: 05/14/2026 [facility] Comment on above: Expected: 05/14/2025 (Approximate), Expires: 05/14/2026 Start: 05-14-2025 End: 05-14-2026 Pt and ptt Pt and ptt Lab Routine induced hypertension, antepartum ([facility]) Expected: 05/14/2025, Expires: 05/14/2026 [facility] Comment on above: Expected: 05/14/2025 , Expires: 05/14/2026 Start: 05-14-2025 End: 05-14-2026 Urate [Mass/volume] in Serum or Plasma Uric acid Lab Routine induced hypertension, antepartum ([facility]) Expected: 05/14/2025 (Approximate), Expires: 05/14/2026 [facility] Comment on above: Expected: 05/14/2025 (Approximate), Expires: 05/14/2026 Start: 05-14-2025 End: 05-14-2026 Urea nitrogen [Mass/volume] in Serum or Plasma BUN Lab Routine induced hypertension, antepartum ([facility]) Expected: 05/14/2025, Expires: 05/14/2026 [facility] Comment on above: Expected: 05/14/2025 , Expires: 05/14/2026 Start: 05-13-2025 End: 05-13-2025 ambulatory 05/13/2025 1:30 PM EDT Support Visit Maternal- Medicine at [facility] [address] [place] [address] Marjorie Rico, RN [address], [address] [place] [address] Xenia Rayo, RD [address], [address] [place] [address] Maternal- Medicine at [facility] Start: 04-30-2025 End: 10-31-2025 US biophysical profile w non stress test US biophysical profile w non stress test Imaging Routine -induced hypertension in third trimester ([facility]) Gestational diabetes mellitus (GDM) in third trimester, gestational diabetes method of control unspecified ([facility]) Expected: 04/30/2025 (Approximate), Expires: 10/31/2025 [facility] Work Phone: Comment on above: Expected: 04/30/2025 (Approximate), Expires: 10/31/2025 Start: 04-30-2025 End: 08-30-2025 US for US OB follow up transabdominal approach Imaging Routine -induced hypertension in third trimester ([facility]) Gestational diabetes mellitus (GDM) in third trimester, gestational diabetes method of control unspecified ([facility]) Expected: 04/30/2025, Expires: 08/30/2025 [facility] Comment on above: Expected: 04/30/2025 , Expires: 08/30/2025 Start: 04-30-2025 End: 04-30-2025 Patient encounter procedure 04/30/2025 10:50 AM EDT Routine [facility] [address] [place] [phone] Rossana Ramos PA [address] [place] [address] [facility] Start: 04-25-2025 End: 04-25-2025 Patient encounter procedure [facility] Comment on above: Arrived Start: 04-25-2025 End: 04-25-2026 Alanine aminotransferase [Enzymatic activity/volume] in Serum or Plasma ALT Lab Routine induced hypertension, antepartum ([facility]) Expected: 04/25/2025 (Approximate), Expires: 04/25/2026 [facility] Comment on above: Expected: 04/25/2025 (Approximate), Expires: 04/25/2026 Start: 04-25-2025 End: 04-25-2026 Aspartate aminotransferase [Enzymatic activity/volume] in Serum or Plasma AST Lab Routine induced hypertension, antepartum ([facility]) Expected: 04/25/2025 (Approximate), Expires: 04/25/2026 [facility] Comment on above: Expected: 04/25/2025 (Approximate), Expires: 04/25/2026 Start: 04-25-2025 End: 04-25-2026 CBC W Auto Differential panel - Blood CBC and differential Lab Routine induced hypertension, antepartum ([facility]) Expected: 04/25/2025 (Approximate), Expires: 04/25/2026 [facility] Comment on above: Expected: 04/25/2025 (Approximate), Expires: 04/25/2026 Start: 04-25-2025 End: 04-25-2026 Creatinine [Mass/volume] in Serum or Plasma Creatinine Lab Routine induced hypertension, antepartum ([facility]) Expected: 04/25/2025 (Approximate), Expires: 04/25/2026 [facility] Work Phone: Comment on above: Expected: 04/25/2025 (Approximate), Expires: 04/25/2026 Start: 04-25-2025 End: 04-25-2026 Lactate dehydrogenase [Enzymatic activity/volume] in Serum or Plasma by Lactate to pyruvate reaction Lactate dehydrogenase Lab Routine induced hypertension, antepartum ([facility]) Expected: 04/25/2025, Expires: 04/25/2026 [facility] Comment on above: Expected: 04/25/2025 , Expires: 04/25/2026 Start: 04-25-2025 End: 04-25-2026 Protein, urine, 24 hour Protein, urine, 24 hour Lab Routine induced hypertension, antepartum ([facility]) Expected: 04/25/2025 (Approximate), Expires: 04/25/2026 [facility] Comment on above: Expected: 04/25/2025 (Approximate), Expires: 04/25/2026 Start: 04-25-2025 End: 04-25-2026 Pt and ptt Pt and ptt Lab Routine induced hypertension, antepartum ([facility]) Expected: 04/25/2025, Expires: 04/25/2026 [facility] Comment on above: Expected: 04/25/2025 , Expires: 04/25/2026 Start: 04-25-2025 End: 04-25-2026 Urate [Mass/volume] in Serum or Plasma Uric acid Lab Routine induced hypertension, antepartum ([facility]) Expected: 04/25/2025 (Approximate), Expires: 04/25/2026 [facility] Comment on above: Expected: 04/25/2025 (Approximate), Expires: 04/25/2026 Start: 04-25-2025 End: 04-25-2026 Urea nitrogen [Mass/volume] in Serum or Plasma BUN Lab Routine induced hypertension, antepartum ([facility]) Expected: 04/25/2025, Expires: 04/25/2026 [facility] Comment on above: Expected: 04/25/2025 , Expires: 04/25/2026 Start: 04-11-2025 End: 04-11-2025 Patient encounter procedure 04/11/2025 3:30 PM EDT Routine [facility] [address] [address] Rossana Ramos PA [address] [place] [address] [facility] Start: 04-11-2025 End: 04-11-2026 CBC panel - Blood by Automated count CBC Lab Routine Diabetes mellitus screening Expected: 04/11/2025 (Approximate), Expires: 04/11/2026 [facility] Work Phone: Comment on above: Expected: 04/11/2025 [...] AM EDT Routine [facility] [address] [phone] Jose Rodriguez, [address] [place] [address] [facility] Start: 02-20-2025 End: 02-20-2025 [...] AM EDT Initial [facility] [address] [address] [facility] Start: 12-14-2024 End: 12-14-2024 Professional / ancillary services management 12/14/2024 8:30 AM EDT Ancillary Procedure [facility] [address] [phone] [facility] Start: 08-20-2024 End: 08-20-2024 Patient encounter procedure 08/20/2024 10:20 AM EST Office Visit [facility] [address] [phone] Rossana Ramos PA [address] [place] [address] [facility] Start: 08-06-2024 End: 08-06-2024 Patient encounter procedure 08/06/2024 9:10 AM EST Routine [facility] [address] [facility] [place] [phone] Jose Rodriguez DO [address] [place], [place] [id number] [facility] Start: 06-29-2024 End: 06-29-2025 ABO/Rh ABO/Rh Lab Routine Missed menses , unspecified gestational age Expected: 06/29/2024 (Approximate), Expires: 06/29/2025 [facility] Comment on above: Expected: 06/29/2024 (Approximate), Expires: 06/29/2025 Start: 06-29-2024 End: 06-29-2025 Blood type and Indirect antibody screen panel - Blood Type and screen Lab Routine Missed menses , unspecified gestational age Expected: 06/29/2024 (Approximate), Expires: 06/29/2025 [facility] Work Phone: Comment on above: Expected: 06/29/2024 (Approximate), Expires: 06/29/2025 Start: 06-29-2024 End: 06-29-2025 Drugs of abuse panel - Urine by Screen method Rapid drug screen, urine Lab Routine , unspecified gestational age Encounter for supervision of normal first in first trimester Expected: 06/29/2024 (Approximate), Expires: 06/29/2025 [facility] Comment on above: Expected: 06/29/2024 (Approximate), Expires: 06/29/2025 Start: 06-29-2024 End: 06-29-2025 US Pelvis transvaginal US OB transvaginal Imaging Routine Missed menses Expected: 06/29/2024 (Approximate), Expires: 06/29/2025 [facility] Comment on above: Expected: 06/29/2024 (Approximate), Expires: 06/29/2025 Start: 05-27-2024 Influenza vaccination Influenza Vacc ine (#1) [facility] Start: 05-01-2024 DTaP,Tdap and Td Vac cines (7 - Td or Tdap) DTaP,Tdap and Td Vaccines (7 - Td or Tdap) [facility] Start: 2020 DTaP,Tdap and Td Vac cines (1 - Tdap) DTaP,Tdap and Td Vaccines (1 - Tdap) [facility] Start: 2019 Adult BMI Screening Adult BMI Screen ing [facility] Start: 2013 Depression Screening Depression Scre ening [facility] Start: 2013 Tobacco Screening Tobacco Screening [facility] Bacteria identified in Urine by Culture Urine culture Microbiology Routine Missed menses Ordered: 06/29/2024 [facility] Comment on above: Ordered: 06/29/2024 Bacteria identified in Urine by Culture Urine culture Microbiology Routine Urinary frequency Ordered: 02/20/2025 [facility] Comment on above: Ordered: 02/20/2025 CBC W Auto Different ial panel - Blood CBC and differential Lab Routine Missed menses , unspecified gestational age Ordered: 06/29/2024 [facility] Comment on above: Ordered: 06/29/2024 CHLAMYDIA TRACHOMATI S (GENITO/STI) CHLAMYDIA TRACHOMATIS (GENITO/STI) Lab Routine STD exposure Ordered: 02/20/2025 [facility] Comment on above: Ordered: 02/20/2025 Cytology Cervical or vaginal smear or scraping study Pap Smear Pathology and Cytology Routine Well woman exam with routine gynecological exam Ordered: 02/20/2025 [facility] Comment on above: Ordered: 02/20/2025 Hemoglobin A1c/Hemoglobin.total in Blood Hemoglobin A1c Lab Routine Missed menses , unspecified gestational age Ordered: 06/29/2024 [facility] Comment on above: Ordered: 06/29/2024 Hepatitis B virus beltran rface Ag [Presence] in Serum or Plasma by Immunoassay Hepatitis B surface antigen Lab Routine Missed menses , unspecified gestational age Ordered: 06/29/2024 [facility] Comment on above: Ordered: 06/29/2024 Hepatitis C virus Ab [Presence] in Serum or Plasma by Immunoassay Hepatitis C antibody Lab Routine Missed menses , unspecified gestational age Ordered: 06/29/2024 [facility] Comment on above: Ordered: 06/29/2024 HIV-1/HIV-2 antigen/antibody combination immunoassay HIV-1 and HIV-2 antibodies Lab Routine Missed menses , unspecified gestational age Ordered: 06/29/2024 [facility] Comment on above: Ordered: 06/29/2024 Neisseria gonorrhoea e DNA [Presence] in Unspecified specimen by INESSA with probe detection Neisseria gonorrhea DNA probe, direct Lab Routine STD exposure Ordered: 02/20/2025 [facility] Comment on above: Ordered: 02/20/2025 Reagin Ab [Presence] in Serum by RPR RPR Lab Routine Missed menses , unspecified gestational age Ordered: 06/29/2024 [facility] Comment on above: Ordered: 06/29/2024 Rubella antibody, IgG Rubella an tibody, IgG Lab Routine Missed menses , unspecified gestational age Ordered: 06/29/2024 [facility] Comment on above: Ordered: 06/29/2024 SURESWAB(R) ADVANCED VAGINITIS PLUS, TMA SURESWAB(R) ADVANCED VAGINITIS PLUS, TMA Pathology and Cytology Routine STD exposure Ordered: 02/20/2025 [facility] Work Phone: Comment on above: Ordered: 02/20/2025 Immunizations Immunization Date Immunization Notes Care Provider Ryne abrams 08-28-2002 influenza virus vacc ine, unspecified formulation Noms Nurse [facility] Payers Date Payer Category Payer Medicaid HMO [employer] [employer] [id number] 2024 Blue Cross Blue Shie ld Managed Care - PPO [id number] 2023 Medicaid [employer] [place] [id number] 2023-Present [address] [place] [id number] [id number] 2023 Medicaid (Managed Care) [facility] MEDICAID [id number] 2021 Blue Cross Blue Shield [id number] 2021 Unknown BCBS BCBS [id number] 2021-Present [phone] [address] [place] [address] [id number] 2001 Unknown [id number] 2.16.840.1.527475.3.579.2. 593 2001 Unknown [id number] 2.16.840.1.684218.3.579.2. 593 2001 Unknown [id number] 2.16.840.1.167190.3.579.2. 593 2001 Unknown [id number] 2.16.840.1.050847.3.579.2. 593 2001 Unknown [id number] 2.16.840.1.152390.3.579.2. 593 2001 Unknown [id number] 2.16.840.1.483394.3.579.2. 593 2001 Unknown [id number] 2.16.840.1.540135.3.579.2. 593 2001 Unknown [id number] 2.16.840.1.073568.3.579.2. 593 2001 Unknown [id number] 2.16.840.1.513717.3.579.2. 593 2001 Unknown [id number] 2.16.840.1.834134.3.579.2. 593 2001 Unknown [id number] 2.16.840.1.792949.3.579.2. 593 2001 Unknown [id number] 2.16.840.1.257556.3.579.2. 593 2001 Unknown [id number] 2.16.840.1.474556.3.579.2. 593 2001 Unknown [id number] 2.16.840.1.390525.3.579.2. 593 2001 Unknown [id number] 2.16.840.1.686755.3.579.2. 593 2001 Unknown [id number] 2.16.840.1.016675.3.579.2. 593 2001 Unknown [id number] 2.16.840.1.692547.3.579.2. 593 2001 Unknown [id number] 2.16.840.1.117767.3.579.2. 593 2001 Unknown [id number] 2.16.840.1.852099.3.579.2. 593 2001 Unknown [id number] 2.16.840.1.173308.3.579.2. 593 2001 Unknown [id number] 2.16.840.1.784623.3.579.2. 593 2001 Unknown [id number] 2.16.840.1.260554.3.579.2. 1286 2001 Unknown [id number] 2.16840.1.614587.3.579.2. 125 2001 Unknown [id number] 2.16840.1.450941.3.579.2. 125 2001 Unknown [id number] 2.16840.1.909578.3.579.2. 125 2001 Unknown [id number] 2.16840.1.215352.3.579.2. 125 2001 Unknown [id number] 2.16840.1.408793.3.579.2. 1259 2001 Unknown [id number] 2.16840.1.338113.3.579.2. 125 2001 Unknown [id number] 2.16840.1.041651.3.579.2. 125 2001 Unknown [id number] 2.16.840.1.371961.3.579.2. 125 2001 Unknown [id number] 2.16840.1.706549.3.579.2. 125 2001 Unknown [id number] 2.16.840.1.563769.3.579.2. 125 2001 Unknown [id number] 2.16840.1.367904.3.579.2. 1259 2001 Unknown [id number] 2.16.840.1.198055.3.579.2. 1259 2001 Unknown [id number] 2.16.840.1.115896.3.579.2. 1259 2001 Unknown [id number] 2.16.840.1.212200.3.579.2. 1259 1959 Self-pay 1959 Unknown [id number] 1959 Unknown [id number] Unknown [id number] 2.16.840.1.618060.3.579.2. 593 Unknown [id number] 2.16.840.1.338094.3.579.2. 531 Social History Date Type Detail Facility Start: 03-06-2019 End: 10-13-2023 Sex Assigned At [facility] [employer] Other Start: 2001 Sex Assigned At Female F [facility] Start: 10-13-2023 End: 05-10-2025 Tobacco smoking status IAIS Never smoked tobacco [facility] Start: 06-29-2024 End: 05-28-2025 Alcoholic beverage intake Current drinker of alcohol (finding) [facility] Start: 03-06-2019 End: 10-13-2023 History of Social function [facility] Start: [facility]-24-[facility]24 [facility] Start: [facility] Sex assigned at Not [facility] file [facility] Tobacco smoking stat us IAIS Unknown if ever smoked [facility] Work Phone: Start: 04-29-2015 End: 08-11-2024 Sex Female (finding) [facility] Start: 05-10-2025 End: 05-31-2025 Alcoholic beverage intake Ex-drinker (finding) [facility] Medical Equipment Procedure Code Equipment Code Equipment Origin al Text Equipment Identifier Dates 1 strip by In Vi tro route Daily Use in the morning prior to breakfast, 1 hour after each meal for a total of 4times daily. [id number] Start: 05-08-2025 End: 06-07-2025 1 each by In Vit ro route Daily Use to check FSBS four times daily [id number] Start: 05-08-2025 End: 06-07-2025 Clinical Notes 12-26-2022 to 05-28-2025 Telephone Encounter - ILEANA Willams - 05/28/2025 1:52 PM EDTTelephone Encounter - ILEANA Willams - 05/28/2025 1:52 PM EDTMeghana Felder LPN - 05/28/2025 10:30 AM EDT Note Date & Type Note Facility 05-28-2025 Miscellaneous Notes Called regarding blood sugar logs from 05/20/25-05/26/25 but received voicemail. Vimal had 4 elevated fasting blood sugars and 2 elevated blood sugars after breakfast. Most recent fasting blood sugars have improved and she had three in target. We did talk last week about changing her evening snack. Will send a [employer] message. documented in this encounter [employer] 05-28-2025 Telephone encounter Note Called regarding blood sugar logs from 05/20/25-05/26/25 but received voicemail. Vimal had 4 elevated fasting blood sugars and 2 elevated blood sugars after breakfast. Most recent fasting blood sugars have improved and she had three in target. We did talk last week about changing her evening snack. Will send a [employer] message. [employer] Work Phone: 05-28-2025 History of Presen t illness Narrative Reason [...] Problems Diagnosis Date Noted induced hypertension, antepartum ([facility]) 05/28/2025 Gestational diabetes mellitus (GDM), antepartum ([facility]) 05/28/2025 Resolved Ambulatory Problems Diagnosis Date Noted No Resolved Ambulatory Problems Past Medical History: Diagnosis Date Anemia Gestational diabetes ([facility]) History of blood transfusion Lead poisoning Miscarriage ([facility]) Nonsmoker Post depression HISTORY PAST MEDICAL HISTORY SOCIAL HISTORY Past Medical History: Diagnosis Date Anemia Gestational diabetes ([facility]) History of blood transfusion Lead poisoning Miscarriage ([facility]) Nonsmoker Post depression /anxiety Social History [...] nursing note reviewed. Exam conducted with a coordinator of rehabilitation services present. Vitals: Estimated body mass index is 32.06 kg/m as calculated from the following: Height as of 01/06/23: 5' 3 . Weight as of this encounter: 181 lb. BP: 136/80 Patient's last menstrual period was 10/15/2024 (exact date). ASSESSMENT & PLAN ICD-10-CM 1. Third trimester ([facility]) Z34.93 POCT urinalysis dipstick manually resulted 2. 32 weeks gestation of ([facility]) Z3A.32 3. Gestational diabetes mellitus (GDM), antepartum, gestational diabetes method of control unspecified ([facility]) O24.419 4. induced hypertension, antepartum ([facility]) O13.9 Return OB: Patient presents today for [...] Jose Rodriguez DO documented in this encounter [facility] 05-22-2025 History of Presen t illness Narrative Reason for Appointment: Patient ID: Vimal Funes is a 25 y.o. female who presents for Routine Visit Patient presents today for Return OB appointment. MEDICATIONS Current Outpatient Medications Medication Instructions Alcohol Swabs (Alcohol Prep Pad) 70 % pads 1 Pad, Topical, Daily, Use four times daily to check FSBS. Blood Glucose Monitoring Suppl ([employer] Glucometer) w/Device kit 1 kit, Does not [...] Anemia Gestational diabetes ([facility]) History of blood transfusion Lead poisoning Miscarriage ([facility]) Nonsmoker Post depression HISTORY PAST MEDICAL HISTORY SOCIAL HISTORY Past Medical History: Diagnosis Date Anemia Gestational diabetes ([facility]) History of blood transfusion Lead poisoning Miscarriage ([facility]) Nonsmoker Post depression /anxiety Social History [...] nursing note reviewed. Exam conducted with a coordinator of rehabilitation services present. Vitals: Estimated body mass index is 31.49 kg/m as calculated from the following: Height as of 01/06/23: 5' 3 . Weight as of this encounter: 177 lb 12 oz. BP: (!) 138/92 Patient's last menstrual period was 10/15/2024 (exact date). ASSESSMENT & PLAN ICD-10-CM 1. Third trimester ([facility]) Z34.93 POCT urinalysis dipstick manually resulted 2. 31 weeks gestation of ([facility]) Z3A.31 Return OB: Patient presents today for a routine obstetrics appointment. Patient is currently 31w2d . Patient states she is doing well but has complaints of being tired due to current . Patient has verbalizes frequent movement. labor precautions was discussed/given and patient was instructed to perform kick counts three times a day. Reviewed 24 hour urine protein. Pt calling in sugars to MFM. Orders Placed This Encounter Procedures POCT urinalysis dipstick manually resulted Follow Up: Patient is to return to office in 2 week for routine OB appointment. Documented by Meghana Felder LPN on behalf of: Jose Rodriguez DO documented in this encounter [facility] 05-21-2025 Miscellaneous Notes Called regarding blood sugar [...] sugars next week. documented in this encounter [employer] 05-21-2025 Telephone encounter Note Called regarding blood [...] will send in blood sugars next week. [facility] 05-14-2025 History of Presen t [...] Lead poisoning Miscarriage ([facility]) Nonsmoker Post depression HISTORY PAST MEDICAL HISTORY SOCIAL HISTORY Past Medical History: Diagnosis Date Anemia Gestational diabetes ([facility]) History of blood transfusion Lead poisoning Miscarriage ([facility]) Nonsmoker Post depression /anxiety Social History [...] nursing note reviewed. Exam conducted with a coordinator of rehabilitation services present. Vitals: Estimated body mass index is 31.35 kg/m as calculated from the following: Height as of 01/06/23: 5' 3 . Weight as of this encounter: 177 lb. BP: 140/90 Patient's last menstrual period was 10/15/2024 (exact date). ASSESSMENT & PLAN ICD-10-CM 1. Third trimester ([facility]) Z34.93 POCT urinalysis dipstick manually resulted 2. 30 weeks gestation of ([facility]) Z3A.30 POCT urinalysis dipstick manually resulted 3. induced hypertension, antepartum ([facility]) O13.9 Creatinine Protein, urine, 24 hour Pt [...] Jose Rodriguez DO documented in this encounter [facility] 05-13-2025 Group counseling note Patient: Vimal Funes [...] Face to face time was 110 minutes. [employer] Work Phone: 05-13-2025 Miscellaneous Notes Patient: Vimal [...] minutes. documented in this encounter [facility] 05-07-2025 Telephone encounter Note Called pt to let her know that she did not pass her 3 hour glucose test and that I would be sending in supplies and referring her to diabetic education. [facility] 05-07-2025 Miscellaneous Notes Called pt to let her know that she did not pass her 3 hour glucose test and that I would be sending in supplies and referring her to diabetic education. documented in this encounter [facility] 04-30-2025 History of Presen t illness Narrative [...] Lead poisoning Miscarriage ([facility]) Nonsmoker Post depression HISTORY PAST MEDICAL HISTORY SOCIAL HISTORY Past Medical History: Diagnosis Date Anemia Gestational diabetes ([facility]) History of blood transfusion Lead poisoning Miscarriage ([facility]) Nonsmoker Post depression /anxiety Social History Tobacco [...] resulted 2. -induced hypertension in third trimester ([facility]) O13.3 US biophysical profile w non stress test US OB follow up transabdominal approach labetalol (Normodyne) 300 MG tablet 3. Gestational diabetes mellitus (GDM) in third trimester, gestational diabetes method of control unspecified ([facility]) O24.419 US biophysical profile w non [...] of: TRUE Argueta documented in this encounter [facility] 04-25-2025 History of Presen t illness Narrative [...] Lead poisoning Miscarriage ([facility]) Nonsmoker Post depression HISTORY PAST MEDICAL HISTORY SOCIAL HISTORY Past Medical History: Diagnosis Date Anemia Gestational diabetes ([facility]) History of blood transfusion Lead poisoning Miscarriage ([facility]) Nonsmoker Post depression /anxiety Social History Tobacco [...] 1. Second trimester ([facility]) Z34.92 2. 27 weeks gestation of ([facility]) Z3A.27 Patient presents for BP check. BP elevated today despite taking 100mg bid labetolol daily. We will increase to 200mg bid daily. Patient given labs and instructed to follow up with OB should she develop headache or vision changes Pt will follow up with DR Rodriguez next week Documented by TRUE Argueta on behalf of: TRUE Argueta documented in this encounter [facility] 04-11-2025 History of Presen t illness Narrative [...] Anemia Gestational diabetes ([facility]) History of blood transfusion Lead poisoning Miscarriage ([facility]) Nonsmoker Post depression HISTORY PAST MEDICAL HISTORY SOCIAL HISTORY Past Medical History: Diagnosis Date Anemia Gestational diabetes ([facility]) History of blood transfusion Lead poisoning Miscarriage ([facility]) Nonsmoker Post depression /anxiety Social History [...] ASSESSMENT & PLAN ICD-10-CM 1. Second trimester ([facility]) Z34.92 POCT urinalysis dipstick manually resulted 2. 25 weeks gestation of ([facility]) Z3A.25 3. Diabetes mellitus screening Z13.1 CBC [...] of: TRUE Argueta documented in this encounter [facility] 03-14-2025 History of Presen t illness Narrative [...] Anemia Gestational diabetes ([facility]) History of blood transfusion Lead poisoning Miscarriage ([facility]) Nonsmoker Post depression HISTORY PAST MEDICAL HISTORY SOCIAL HISTORY Past Medical History: Diagnosis Date Anemia Gestational diabetes ([facility]) History of blood transfusion Lead poisoning Miscarriage ([facility]) Nonsmoker Post depression /anxiety Social History [...] nursing note reviewed. Exam conducted with a coordinator of rehabilitation services present. Vitals: Estimated body mass index is 29.23 kg/m as calculated from the following: Height as of 01/06/23: 5' 3 . Weight as of this encounter: 165 lb. BP: 112/76 Patient's last menstrual period was 10/15/2024 (exact date). ASSESSMENT & PLAN ICD-10-CM 1. Second trimester ([facility]) Z34.92 POCT urinalysis dipstick manually resulted 2. 21 weeks gestation of ([facility]) Z3A.21 Patient presents today for a routine obstetrics appointment. Patient is currently 21w3d with a Estimated Date of Delivery: 07/22/25. Patient has no complaints at this time and will return to clinic in 4 weeks. Documented by Diamond Borja LPN on behalf of: Jose Michael, DO documented in this encounter [facility] 02-20-2025 History of Presen t illness Narrative [...] transfusion Lead poisoning Miscarriage Nonsmoker Post depression ([facility]) HISTORY PAST MEDICAL HISTORY SOCIAL HISTORY Past Medical History: Diagnosis Date Anemia Gestational diabetes History of blood transfusion Lead poisoning Miscarriage Nonsmoker Post depression ([facility]) /anxiety Social History Tobacco Use Smoking [...] nursing note reviewed. Exam conducted with a coordinator of rehabilitation services present. Vitals: Estimated body mass index is [...] of: TRUE Argueta documented in this encounter [facility] 01-14-2025 History of Presen t illness Narrative [...] nursing note reviewed. Exam conducted with a coordinator of rehabilitation services present. Vitals: Estimated body mass index is [...] or undercooked meat, and stay away from [facility]. Patient has been consulted regarding [...] Jose Rodriguez DO documented in this encounter [facility] 08-20-2024 History of Presen t illness Narrative [...] having a D&C Hysteroscopy performed at [facility] with Dr. Rodriguez. Pathology results was reviewed with the patient in great detail and all restrictions have been lifted. Follow Up: Patient is to return to the office for annual exam unless needed otherwise. Documented by TRUE Argueta on behalf of: TRUE Argueta documented in this encounter [facility] 08-06-2024 History of Presen t illness Narrative [...] nursing note reviewed. Exam conducted with a coordinator of rehabilitation services present. Vitals: Estimated body mass index is [...] vaginal bleeding. Patient to discuss date with [employer] prior to leaving. Patient is able to obtain work note for the week and if longer is needed she will reach out to office. Documented by Diamond Borja LPN on behalf of: Jose Rodriguez DO documented in this encounter [facility] 06-29-2024 History of Presen t illness Narrative [...] blood transfusion Lead poisoning Nonsmoker Post depression ([facility]) Family History Problem Relation Name Age [...] or undercooked meat, and stay away from [facility]. Patient has also been advised [...] by: Whitney Peacock documented in this encounter [facility] 12-26-2022 Evaluation note Encounter Date Diagnosis Assessment [...] appointment to be seen soon as possible [employer] Ã Designation noteNo assessment information available [facility] Work Phone: Evaluytnhs note* Diagnosis Missed menses , unspecified gestational [...] of control unspecified [facility] Diagnosis Third trimester ([facility]) state, incidental 30 weeks gestation of ([facility]) induced hypertension, antepartum ([facility]) Transient hypertension of , antepartum [facility] Diagnosis Third trimester ([facility]) state, incidental 31 weeks gestation of ([facility]) [facility] Diagnosis Third trimester ([facility]) state, incidental 32 weeks gestation of ([facility]) Gestational diabetes mellitus (GDM), antepartum, gestational diabetes method of control unspecified ([facility]) induced hypertension, antepartum ([facility]) Transient hypertension of , antepartum documented in this encounter [facility]ructionsNot on filedocumented in this encounterProMedica Health SystemInstructionsNot on filedocumented in this encounterProMediil Health SystemInstructionsNot on filedocumented in this encounterProMediil Health System Summary Purpose Family History No Family History Records FoundNo Family History Records FoundNo Family History Records FoundNo Family History Records FoundNo Family History Records Found Advance Directives Advance Directive Response Recorded Date/ Time Advance Directives No December 27 23 6:21am Additional Source Comments INFORMATION SOURCE (unrecogn ized section and content) DATE CREATED AUTHOR 09/24/2021 [facility] DATE CREATED AUTHOR AUTHOR'S ORGANIZ ATION 12/07/2022 [facility] DATE CREATED AUTHOR AUTHOR'S ORGANIZ ATION 08/15/2024 [facility] DATE CREATED AUTHOR AUTHOR'S ORGANIZ ATION 05/14/2025 [facility] DATE CREATED AUTHOR AUTHOR'S ORGANIZ ATION 05/29/2025 [facility] d[facility] Specialists EPIC REASON [...] unspecified Jose Rodriguez DO [address] [place] [address] Phone: tel: fax: Maternal- Medicine at [facility] [address] [place] [address] Phone: tel: fax: Referral ID Status Reason Start Date Expiration Date Visits Requested Visits Authorized [id number] Pending Review Specialty Services Required 05/09/2025 05/09/2026 1 1 Care Teams (unrecognized sec tion and content) Team Status: Inactive Member Role Status Dates Jennifer Huston CURRENCY EXCHANGE SPECIALIST-C Attending Provider Active Director Facilities Maintenance Relationship Specialty Start Date End Date Vaishali Zapata MD [address] [place] [address] PCP - General Family Medicine 02/04/23 Director Facilities Maintenance Relationship Specialty Start Date End Date Vaishali Zapata MD [address] [place] [address] PCP - General Family Medicine 02/04/23 Team Status: Active Member Role Status Dates PHYSICIAN NO FAMILY Primary Care Provider Active Team Status: Inactive Member Role Status Dates PHYSICIAN NO FAMILY Primary Care Provider Active Start: August 10, 2024 End: August 10, 2024 Jose Rodriguez DO Attending Provider Active Start : August 10, 2024 End: August 10, 2024 Director Facilities Maintenance Relationship Specialty Start Date End Date Unallocated, MD Zuhair Aguero COUNT INCLUDES [facility] [place] [address] PCP - General Family Medicine 08/03/24 Director Facilities Maintenance Relationship Specialty Start Date End Date Unallocated, [place] [address] PCP - General Family Medicine 08/03/24 Director Facilities Maintenance Relationship Specialty Start Date End Date Unallocated, [place] [address] PCP - General Family Medicine 08/03/24 Director Facilities Maintenance Relationship Specialty Start Date End Date Unallocated, [place] [address] PCP - General Family Medicine 08/03/24 Director Facilities Maintenance Relationship Specialty Start Date End Date Unallocated, [place] [address] PCP - General Family Medicine 08/03/24 Director Facilities Maintenance Relationship Specialty Start Date End Date Unallocated, [place] [address] PCP - General Family Medicine 08/03/24 Director Facilities Maintenance Relationship Specialty Start Date End Date Unallocated, Arjun Vo [place] [facility] [place] [address] PCP - General Family Medicine 08/03/24 Director Facilities Maintenance Relationship Specialty Start Date End Date Unallocated, Arjun Vo [facility] COUNT IN[facility]ES [facility] [place] [address] PCP - General Family Medicine 08/03/24 Director Facilities Maintenance Relationship Specialty Start Date End Date Unallocated, [place] [address] PCP - General Family Medicine 08/03/24 Director Facilities Maintenance Relationship Specialty Start Date End Date Unallocated, [place] [address] PCP - General Family Medicine 08/03/24 Director Facilities Maintenance Relationship Specialty Start Date End Date Unallocated, [place] [address] PCP - General Family Medicine 08/03/24 Director Facilities Maintenance Relationship Specialty Start Date End Date Unallocated, Arjun Vo MD Zuh[place] [address] PCP - General Family Medicine 08/03/24 Director Facilities Maintenance Relationship Specialty Start Date End Date Unallocated, Arjun Vo MD Zuhair FABIANO PETERS COUNT INCLUDES [facility] [place] [address] PCP - General Family Medicine 08/03/24 Director Facilities Maintenance Relationship Specialty Start Date End Date Unallocated, Arjun Vo MD Zuhair FABIANO PETERS COUNT INCLUDES [facility] [place] [address] PCP - General Family Medicine 08/03/24 Director Facilities Maintenance Relationship Specialty Start Date End Date Unallocated, Arjun Vo MD Cj FABIANO PETERS COUNT INCLUDES [facility] [place] [address] PCP - General Family Medicine 08/03/24 Goals [...] BE BASED ON THE PRIMARY CLINICAL RECORDS. [facility]. provides no warranty or guarantee of the accuracy or completeness of information in this document.
--- OUTSIDE RECORDS SUMMARY | 2025-06-01 10:56 | XMS_ITS | Clinical Summary ---
Author Organization [facility] Address [address] [place] [address] Care Team Providers Care Telecommunications Facility Examiner Name Role Phone Unallocated, Noms Provider Primary Care Provi krissy Allergies No known active allergies Medications Vit-DSS-Fe Fum-FA ( 19) 29-1 MG tablet Take 1 each by mouth 1 (one) time each day at the same time Active loratadine (Claritin) 10 MG tablet Take 10 mg by mouth Daily Active labetalol (Normodyne) 200 MG tabletIndication s: [...] antepartum, gestational diabetes method of control unspecified ([facility]),Elevat ed glucose tolerance test Apply 1 Pad topically Daily Use four times daily to check FSBS. 150 each 3 5 Active Glucose Blood (Blood Glucose Test) stripIndications :Gestational diabetes mellitus (GDM), antepartum, gestational diabetes method of control unspecified ([facility]),Elevat ed glucose tolerance test 1 strip by In Vitro route Daily Use in the morning prior to breakfast, 1 hour after each meal for a total of 4times daily. 150 strip 3 5 06/07/20 25 Active Blood Glucose Monitoring Suppl ([email or web address]-Ubi Video Glucometer) w/Device kitIndications:G estational diabetes mellitus (GDM), antepartum, gestational diabetes method of control unspecified ([facility]),Elevat ed glucose tolerance test 1 kit Daily Use four times daily to check FSBS. In the morning prior to breakfast & 1 hour after each meal for a total of 4times daily. 1 kit 5 05/08/20 26 Active progesterone (Endometrin) 100 MG vaginal insert Insert 100 mg into the vagina in the morning and 100 mg before bedtime. 05/28/20 25 Discontin ued(Thera py completed ) Active Problems Problem Noted Date Diagnosed Date induced hypertension, antepartum ([facility]) 05/28/2025 Gestational diabetes mellitus (GDM), antepartum ([facility]) 05/28/2025 Estimated Date of Delivery Comme nts Yes 07/22/2025 Based on last me nstrual period of 10/15/2024 (Exact Date) Encounters Date Type Department Care Team Description 05/28/2025 10:30 AM EDT Routine [facility]JUN PANG [address] [facility] [place] [address] Mackenzie Rodriguez DO Third trimester ([facility]); 32 weeks gestation of ([facility]); Gestational diabetes mellitus (GDM), antepartum, gestational diabetes method of control unspecified ([facility]); induced hypertension, antepartum ([facility]) 05/28/2025 Bamboo flowsheet NOMMay PANG [address] [facility] [place] [phone] Mackenzie Rodriguez, DO 05/25/2025 Clinisync Result Encounter NOMS External Department Unsolicited Rossana Leach PA 05/22/2025 2:40 PM EDT Routine [facility] [address] [facility] [place] [address] Mackenzie Rodriguez, DO Third trimester ([facility]); 31 weeks gestation of ([facility]) 05/22/2025 Bamboo flowsheet [facility] [place] [facility] [address] [facility] [place] [phone] Mackenzie Rodriguez, DO 05/20/2025 Clinisync Result Encounter NOMS External Department Unsolicited Mackenzie Rodriguez, DO 05/18/2025 Clinisync Result Encounter NOMS External Department Unsolicited Rossana Leach PA 05/18/2025 Clinisync Result Encounter NOMS External Department Unsolicited Mackenzie Rodriguez, DO 05/14/2025 2:40 PM EDT Routine [facility] [address] [place] [phone] Mackenzie Rodriguez, Third trimester ([facility]); 30 weeks gestation of ([facility]); induced hypertension, antepartum ([facility]) 05/14/2025 Bamboo flowsheet [facility] [place] [phone] Mackenzie Rodriguez, DO 05/11/2025 Clinisync Result Encounter NOMS External Department Unsolicited Rossana Leach PA 05/08/2025 Abstract [facility] [place] [phone] Mackenzie Rodriguez, DO 05/07/2025 Results Follow-Up [facility] [place] [phone] Glenna Butler, MARILU ALL CBC WITH AUTO DIFF, SRMCOH PROTHROMBIN TIME INR W/O COUM, [facility] APTT, Additional followed-up results: 6 05/06/2025 Clinisync Result Encounter NOMS External Department Unsolicited Rossana Leach PA 05/04/2025 Clinisync Result Encounter NOMS External Department Unsolicited Rossana Leach PA 05/04/2025 Clinisync Result Encounter NOMS External Department Unsolicited Rossana Leach PA 05/04/2025 Telephone [facility] [address] [facility] [place] [address] Mackenzie Rodriguez DO 05/04/2025 Clinisync Result Encounter NOMS External Department Unsolicited Rossana Leach PA 04/30/2025 10:50 AM EDT Routine [facility] [address] [place] [address] Rossana Leach PA BP check; -induced hypertension in third trimester ([facility]); Gestational diabetes mellitus (GDM) in third trimester, gestational diabetes method of control unspecified ([facility]) 04/30/2025 Bamboo flowsheet [facility] [address] [place] [address] Rossana Leach PA 04/29/2025 Telephone [facility] [address] [place] [address] Kavitha Almanza MA 04/27/2025 Clinisync Result Encounter NOMS External Department Unsolicited Rossana Leach PA 04/25/2025 2:50 PM EDT [place] [address] Rossana Leach PA Second trimester ([facility]); 27 weeks gestation of ([facility]); induced hypertension, antepartum ([facility]) 04/25/2025 [place] [address] Rossana Leach PA 04/11/2025 3:30 PM EDT Routine [facility] [address] [facility] [place] [address] Rossana Leach PA Second trimester ([facility]); 25 weeks gestation of ([facility]); Diabetes mellitus screening; Elevated BP without diagnosis of hypertension 04/11/2025 Bamboo flowsheet [facility] [address] [facility] [place] [address] Rossana Leach PA 03/28/2025 Abstract [facility] [place] [address] Mackenzie Rodriguez, 03/25/2025 Clinisync Result Encounter NOMS External Department Unsolicited Mackenzie Rodriguez, DO 03/14/2025 10:50 AM EDT Routine [facility] [place] [address] Mackenzie Rodriguez, Second trimester ([facility]); 21 weeks gestation of ([facility]) 03/14/2025 Bamboo flowsheet [facility] [address] [place] [address] Mackenzie Rodriguez, 03/11/2025 Results Follow-Up [facility] [place] [facility] [place] [address] Glenna Butler LPN OB ANATOMY 03/11/2025 Telephone [facility] [place] [address] Glenna Butler LPN 03/08/2025 Clinisync Result Encounter NOMS External Department Unsolicited Mackenzie Rodriguez, DO 03/08/2025 Clinisync Result Encounter NOMS External Department Unsolicited Mackenzie Rodriguez, DO 03/06/2025 Orders Only [facility] [address] [facility] [place] [address] Kavitha Almanza MA from Last 3 Months [...] (181 lb) 05/28/2025 10:48 AM EDT Height 160 cm (5' 3 ) 01/06/2023 12:00 PM EDT Body Mass Index 32.06 01/06/2023 12:00 PM EDT Plan of Treatment Upcoming Encounters Date Type Department Care Team (Late st Contact Info) Description 06/12/2025 3:00 PM EDT Routine [facility] [address] [facility] [place] [phone] Rossana Leach PA [address] [place] [address] Health Maintenance Due Date Last Done Comments Influenza Vaccine (#1) 2025 08/28/2003, 2002 Procedures Procedure Name Priority Date/Time Associated Diagnosis Comments POCT URINALYSIS DIPSTICK Routine 05/28/2025 11:00 AM EDT Third trimester ([facility]) US OB BPP W NON-STRESS 05/25/2025 11:13 AM EDT POCT URINALYSIS DIPSTICK Routine 05/22/2025 3:12 PM EDT Third trimester ([facility]) TBH TOTAL PROTEIN 24 HOUR URINE Routine [...] 04/25/2025 3:12 PM EDT Second trimester ([facility]) POCT URINALYSIS DIPSTICK Routine 04/11/2025 3:44 PM EDT Second trimester ([facility]) US OB INCOMPLETE ANATOMY 03/25/2025 8:25 AM EDT POCT URINALYSIS DIPSTICK Routine 03/14/2025 11:39 AM EDT Second trimester ([facility]) US OB CERVICAL LENGTH 03/08/2025 8:36 PM EDT US OB ANATOMY 03/08/2025 8:36 PM EDT from Last 3 Months Results * POCT urinalysis dipstick manually resulted (05/28/2025 11:00 AM EDT) Only the most recent of6 resultswithin the time period is included. Color, [...] Positive Urine 05/28/2025 11:0 0 AM EDT [facility] DO POINT OF CARE TEST ENTER/EDIT OR DERABLES Final Result * US OB BPP W NON-STRESS (05/25/2025 11:13 AM EDT) Only the most recent of4 resultswithin the time period is included. Anatomical Region Laterality Modality Other 05/25/2025 11:1 3 AM EDT Narrative 05/25/2025 11:[place] [address] Ultrasound Report Signed Patient: VIMAL FUNES MR#: [id number] : 2000 Acct:[id number] Age/Sex: 25 / F ADM Date: 05/25/25 Loc: US Attending Dr: Rossana Leach Ordering Physician: Rossana Leach Date of Service: 05/25/25 Procedure(s): US OB BPP w non-stress Accession Number(s): [id number] cc: Rossana Leach; LUIS SEE [place] [phone] Patient Name: VIMAL FUNES MRN: [id number]:[id number] date: 2000 Sex: F Assigned Patient Location: [facility] Current Patient Location: Accession/Order Number: [id number] Exam Date: 05/25/2025 08:21 Report Date: 05/25/2025 [...] Acharya M.D. 05/25/2025 11:13 AM Dictation Location: [place] [address] Electronically authenticated by: [id number] Y Date: 05/25/2025 11:13 Dictated By: Heriberto Acharya M.D. Signed By: 05/25/25 1116 DD/ 1113 TD/TT: Screw Machine Tender: Procedure Note Radiology, Radiologist, MD - 05/25/[address] [address] Ultrasound Report Signed Patient: VIMAL FUNES MMR#: [id number] : 2000Acct:[id number] Age/Sex: 25 / FADM Date: 05/25/25 Loc: US Attending Dr: Rossana Leach Ordering Physician: Rossana Leach Date of Service: 05/25/25 Procedure(s): US OB BPP w non-stress Accession Number(s): [id number] cc: Rossana Leach; LUIS SEE [place] [phone] Patient Name: VIMAL FUNES MRN: [facility]:[id number] date: 2000 Sex: F Assigned Patient Location: [facility] Current Patient Location: Accession/Order Number: [id number] Exam Date: 05/25/2025 08:21 Report Date: 05/25/2025 [...] Acharya M.D. 05/25/2025 11:13 AM Dictation Location: [place] [address] Electronically authenticated by: [id number] Y Date: 1:13 Dictated By: Heriberto Acharya M.D. Signed By:05/25/25 1116 DD/ 1113 TD/TT: Screw Machine Tender: Rossana BISWAS [facility] Final Result * (ABNORMAL) TBH TOTAL PROTEIN [...] Narrative CLINISYNC - 05/20/2025 7:25 PM EDT Mackenzie Michael DO CLINISYNC Final Result Performing Organization Address [facility] Co de Phone Number [facility] * (ABNORMAL) [facility]H CREATININE (05/18/2025 [...] DO CLINISYNC Final Result Performing Organization Address [facility] de Phone Number [facility] * [facility] PROTHROMBIN TIME INR W/O [...] DO CLINISYNC Final Result Performing Organization Address [facility] Co de Phone Number CLIN[facility]NC TB * [facility] AST (05/18/2025 11:03 AM EDT) Only the most recent of2 resultswithin the time period is included. ASPARTATE AMINO TRANSFERASE 18 15 - 37 U/L TB 05/18/2025 11:0 3 AM EDT 05/18/2025 11:08 AM EDT Narrative CLINISYNC - 05/18/2025 11:50 AM EDT Mackenzie Michael DO CLINISYNC Final Result Performing Organization Address [facility] Co de Phone Number [facility] * [facility] APTT (05/18/2025 11:03 AM EDT) Only the most recent of2 resultswithin the time period is included. PARTIAL THROMBOPLASTIN TIME 25.6 22.3 - 36.2 sec TB 05/18/2025 11:0 3 AM EDT 05/18/2025 11:08 AM EDT Narrative CLINISYNC - 05/18/2025 11:29 AM EDT Mackenzie Michael DO CLINISYNC Final Result Performing Organization Address [facility] de Phone Number [facility] * ALL URIC ACID (05/18/2025 11:03 AM EDT) Only the most recent of2 resultswithin the time period is included. URIC ACID 4.0 2.6 - 6.0 mg/dL TB 05/18/2025 11:0 3 AM EDT 05/18/2025 11:08 AM EDT Narrative CLINISYNC - 05/18/2025 11:50 AM EDT Mackenzie Michael DO CLINISYNC Final Result Performing Organization Address [facility] Co de Phone Number [facility] * ALL LDH (05/18/2025 11:03 AM EDT) Only the most recent of2 resultswithin the time period is included. Pathologist [facility] LACTATE DEHYDROGENASE 147 81 - 234 U/L TB 05/18/2025 11:0 3 AM EDT 05/18/2025 11:08 AM EDT Narrative CHETISYNC - 05/18/2025 11:50 AM EDT Mackenzie Michael DO CLINISYNC Final Result [facility] * (ABNORMAL) ALL CBC WITH AUTO DIFF (05/18/2025 11:03 AM EDT) Only the most recent of3 resultswithin the time period is included. Pathologist [facility] TB WBC 15.0(H) 4.0 - 11.0 10 [...] us Mackenzie Michael DO CLINISYNC Final Result [facility] * ALL BUN (05/18/2025 11:03 AM EDT) Only the most recent of2 resultswithin the time period is included. BLOOD UREA NITROGEN 9.0 7.0 - 18.0 mg/dL TBH 05/18/2025 11:0 3 AM EDT 05/18/2025 11:08 AM EDT Narrative CLINISYNC - 05/18/2025 11:50 AM EDT us Mackenzie Michael DO CLINISYNC Final Result [facility] * US OB GROWTH (05/04/2025 12:08 PM EDT) Anatomical Region Laterality Modality Other 05/04/2025 12:0 8 PM EDT Narrative 05/04/2025 12:11 [place] [address] Ultrasound Report Signed Patient: VIMAL FUNES MR#: [id number] : 2000 Acct:[id number] Age/Sex: 25 / F ADM Date: 05/04/25 Loc: [facility] 250-[address]: Rossana Leach Ordering Physician: Rossana Leach Date of Service: 05/04/25 Procedure(s): US OB growth Accession Number(s): [id number] cc: LUIS Watkins [place] [phone] Patient Name: VIMAL FUNES MRN: [id number] date: 2000 Sex: F Assigned Patient Location: [facility] Current Patient Location: [facility] Accession/Order Number: [id number] Exam Date: 05/04/2025 12:06 Report Date: 05/04/2025 [...] Jr., D.O. 05/04/2025 12:08 PM Dictation Location: [place] [address] Electronically authenticated by: [id number] Y Date: 05/04/2025 12:08 Dictated By: Bulmaro Arias M.D. Signed By: 05/04/25 1211 DD/ 1208 TD/TT: Screw Machine Tender: Procedure Note Radiology, Radiologist, MD - 05/04/2025 [place] [address] Ultrasound Report Signed Patient: VIMAL FUNES MMR#: [id number] : 2000Acct:[id number] Age/Sex: 25 / FADM Date: 05/04/25 Loc: [facility] 250-[address]: Rossana Leach Ordering Physician: Rossana Leach Date of Service: 05/04/25 Procedure(s): US OB growth Accession Number(s): [id number] cc: LUIS Watkins [place] [phone] Patient Name: VIMAL FUNES MRN: [facility]:[id number] date: 2000 Sex: F Assigned Patient Location: [facility] Current Patient Location: [facility] Accession/Order Number: [id number] Exam Date: 05/04/2025 12:06 Report Date: 05/04/2025 [...] Jr., D.O. 05/04/2025 12:08 PM Dictation Location: [email or web address] Electronically authenticated by: [id number] Y Date: 2:08 Dictated By: Bulmaro Arias M.D. Signed By:05/04/25 1211 DD/ 1208 TD/TT: Screw Machine Tender: Rossana BISWAS [facility]AG[facility] Final Result * [...] - 05/04/2025 10:50 AM EDT us Rossana Rachel TRUE LAB BLOOD ORDERABLES Final Resul t Performing Organization Address [facility] Co de Phone Number [facility] * (ABNORMAL) GLUCOSE 1 HOUR (04/27/2025 10:05 AM EDT) GLUCOSE 1 HOUR 171(H) <130 mg/dL TBH 04/27/2025 10:0 5 AM EDT 04/27/2025 10:06 AM EDT Narrative CLINISYNC - 04/27/2025 10:45 AM EDT Rossana Rachel TRUE LAB BLOOD ORDERABLES Final Resul t Performing Organization Address [facility] de Phone Number [facility] * US OB INCOMPLETE ANATOMY (03/25/2025 8:25 AM EDT) Anatomical Region Laterality Modality Other 03/25/2025 8:25 AM EDT Narrative 03/25/2025 8:27 [place] [address] Ultrasound Report Signed Patient: VIMAL FUNES MR#: [id number] : 2000 Acct:[id number] Age/Sex: 24 / F ADM Date: 03/23/25 Loc: US Attending Dr: Mackenzie Rodriguez D.O. Ordering Physician: Mackenzie Rodriguez D.O. Date of Service: 03/23/25 Procedure(s): US OB incomplete anatomy Accession Number(s): [id number] cc: LUIS SEE ; Mackenzie Rodriguez D.O. [address] [address] Patient Name: VIMAL FUNES MRN: [id number]:[id number] date: 2000 Sex: F Assigned Patient Location: US Current Patient Location: US Accession/Order Number: [id number] Exam Date: 03/25/2025 08:23 Report Date: 03/25/2025 [...] Brown M.D. 03/25/2025 8:25 AM Dictation Location: [place] [address] Electronically authenticated by: [id number] Y Date: 03/25/2025 08:25 Dictated By: Meghana Brown M.D. Signed By: 03/25/25826 DD/ 4 TD/TT: Screw Machine Tender: Procedure Note Radiology, Radiologist, MD - 03/25/2025 [place] [address] Ultrasound Report Signed Patient: VIMAL FUNES MMR#: [id number] : 2000Acct:[id number] Age/Sex: 24 / FADM Date: 03/23/25 Loc: US Attending Dr: Mackenzie Rodriguez D.O. Ordering Physician: Mackenzie Rodriguez D.O. Date of Service: 03/23/25 Procedure(s): US OB incomplete anatomy Accession Number(s): [id number] cc: LUIS SEE ; Mackenzie Rodriguez D.O. [facility] [place] [phone] Patient Name: VIMAL FUNES MRN: [id number]:[id number] date: 2000 Sex: F Assigned Patient Location: US Current Patient Location: US Accession/Order Number: [id number] Exam Date: 03/25/2025 08:23 Report Date: 03/25/2025 [...] Brown M.D. 03/25/2025 8:25 AM Dictation Location: [place] [address] Electronically authenticated by: [id number] Y Date: 508:25 Dictated By: Meghana Brown M.D. Signed By:03/25/25826 DD/ 4 TD/TT: Screw Machine Tender: us Mackenzie Rodriguez DO [facility] IMAG[facility] Final Result * US OB CERVICAL LENGTH (03/08/2025 8:36 PM EDT) Anatomical Region Laterality Modality Other 03/08/2025 8:36 PM EDT Narrative 03/08/2025 8:38 [place] [address] Ultrasound Report Signed Patient: VIMAL FUNES MR#: [id number] : 2000 Acct:[id number] Age/Sex: 24 / F ADM Date: 03/08/25 Loc: US Attending Dr: Mackenzie Rodriguez D.O. Ordering Physician: Mackenzie Rodriguez D.O. Date of Service: 03/08/25 Procedure(s): US OB cervical length Accession Number(s): [id number] cc: LUIS SEE ; Mackenzie Rodriguez D.O. [place] [address] Patient Name: VIMAL FUNES MRN: [id number] date: 2000 Sex: F Assigned Patient Location: US Current Patient Location: US Accession/Order Number: [id number] Exam Date: 03/08/2025 20:31 Report Date: 03/08/2025 [...] Knapp M.D. 03/08/2025 8:36 PM Dictation Location: [place] [address] Electronically authenticated by: [id number] Y Date: 03/08/2025 20:36 Dictated By: Shivam Knapp D.O. Signed By: 03/08/252037 DD/ 35 TD/TT: Screw Machine Tender: Procedure Note Radiology, Radiologist, - 03/08/2025 [place] [address] Ultrasound Report Signed Patient: VIMAL FUNES MMR#: [id number] : 2000Acct:[id number] Age/Sex: 24 / FADM Date: 03/08/25 Loc: US Attending Dr: Mackenzie Rodriguez D.O. Ordering Physician: Mackenzie Rodriguez D.O. Date of Service: 03/08/25 Procedure(s): US OB cervical length Accession Number(s): [id number] cc: LUIS SEE ; Mackenzie Rodriguez D.O. [place] [address] Patient Name: VIMAL FUNES MRN: [facility]:[id number] date: 2000 Sex: F Assigned Patient Location: US Current Patient Location: US Accession/Order Number: [id number] Exam Date: 03/08/2025 20:31 Report Date: 03/08/2025 [...] Knapp M.D. 03/08/2025 8:36 PM Dictation Location: [employer] Electronically authenticated by: [id number] Y Date: 0:36 Dictated By: Shivam Knapp D.O. Signed By:03/08/252037 DD/ 35 TD/TT: Screw Machine Tender: us Mackenzie Rodriguez DO [facility] IMAGING Final Result * US OB ANATOMY (03/08/2025 8:36 PM EDT) Anatomical Region Laterality Modality Other 03/08/2025 8:36 PM EDT Narrative 03/08/2025 8:38 [place] [address] Ultrasound Report Signed Patient: VIMAL FUNES MR#: [id number] : 2000 Acct:[id number] Age/Sex: 24 / F ADM Date: 03/08/25 Loc: US Attending Dr: Mackenzie Rodriguez D.O. Ordering Physician: Mackenzie Rodriguez D.O. Date of Service: 03/08/25 Procedure(s): US OB anatomy Accession Number(s): [id number] cc: LUIS SEE ; Mackenzie Rodriguez D.O. [place] [address] Patient Name: VIMAL FUNES MRN: [id number]:[id number] date: 2000 Sex: F Assigned Patient Location: US Current Patient Location: US Accession/Order Number: [id number] Exam Date: 03/08/2025 20:31 Report Date: 03/08/2025 [...] Knapp M.D. 03/08/2025 8:36 PM Dictation Location: [employer] Electronically authenticated by: [id number] Y Date: 03/08/2025 20:36 Dictated By: Shivam Knapp D.O. Signed By: 03/08/252037 DD/ 35 TD/TT: Screw Machine Tender: Procedure Note Radiology, Radiologist, - 03/08/2025 [place] [address] Ultrasound Report Signed Patient: VIMAL FUNES MMR#: [id number] : 2000Acct:[id number] Age/Sex: 24 / FADM Date: 03/08/25 Loc: US Attending Dr: Mackenzie Rodriguez D.O. Ordering Physician: Mackenzie Rodriguez D.O. Date of Service: 03/08/25 Procedure(s): US OB anatomy Accession Number(s): [id number] cc: LUIS SEE ; Mackenzie Rodriguez D.O. [place] [phone] Patient Name: VIMAL FUNES MRN: [id number] date: 2000 Sex: F Assigned Patient Location: US Current Patient Location: US Accession/Order Number: [id number] Exam Date: 03/08/2025 20:31 Report Date: 03/08/2025 [...] Knapp M.D. 03/08/2025 8:36 PM Dictation Location: [employer] Electronically authenticated by: [id number] Y Date: 0:36 Dictated By: Shivam Knapp D.O. Signed By:03/08/252037 DD/ 35 TD/TT: Screw Machine Tender: Mackenzie Rodriguez DO [facility] IMAGING Final Result from Last 3 Months Insurance [facility] [employer] Care Teams Telecommunications Facility Examiner Relationship Specialty Start Date End Date Unallocated, [facility]oms Provider, [address] [place], [place] [id number] PCP - General Family Medicine 08/03/24
[2025-06-01 11:22] VITALS: BP 125/83; PULSE 76
== END 2025-06-01 11:56 | disposition home or self-care (01) ==
LOC: US 10:53 → FBC 10:55
PROVIDERS: PCP Nurse Practitioner Family; Visit Provider Physician Assistant
DX: O13.3 Gestational [pregnancy-induced] hypertension without significant proteinuria, third trimester (principal); O24.419 Gestational diabetes mellitus in pregnancy, unspecified control
CPT/HCPCS: 76818

== ENCOUNTER 2025-06-05 17:00 | Outpatient (OUT) | payer BC, OTHER, SELFPAY ==
--- OUTSIDE RECORDS SUMMARY | 2024-06-05 04:30 | XMS_ITS ---
Author Organization [facility] in [place] Address [address] [place] [address] Care Team Providers Care Forensic Chemist Name Role Phone Jennifer Butts Primary Care Provider [phone] Allergies No Known Allergies Results Component Value [...] 06/05/2024 Encounters Encounter Location Date Provider Diagnosis [facility] [address] [place] [address] 06/05/2024 Jennifer Butts Z33.1 and Wellness examination [...] Amber PIZANO MDOB: [birth year] (24 yo F)Acc No.[id number]:06/05/2024 New Patient Patient: Amber MADERA Provider: Lashawn Butts ([facility]), STATION MASTER :2000 A ge:24 Y S ex:Female Date:06/05/2024 Address:[address] [place] [address] Check In:08:08 AM ESTCheck O ut:08:44 AM [...] (Check Out) true * Provider: Lashawn Butts ([facility]), STATION MASTER Date: 0 06/05/2024 Generated for Yolisi ng/Faxing/eTransmitting on: 06/05/2025 05:02 PM EDT History and Physical Notes * [...]
--- OUTSIDE RECORDS SUMMARY | 2025-05-22 14:40 | XMS_ITS | Encounter Summary ---
Author Organization [facility] Address [address] [place] [address] Care Team Providers Care Health Service Worker Name Role Phone Unallocated, Noms Provider Primary Care Provi krissy Reason for Visit * Reason Comments Routine Visit Encounter Details Date Type Department Care Team (Late st Contact Info) Description 05/22/2025 2:40 PM EDT Routine ARJUN Morataya OBGYN [address] [facility] [address] Jose Rodriguez DO [address] [facility] [address] Josué Morataya, [facility]11 Third trimester ([facility]); 31 weeks gestation of ([facility]) Social History Tobacco Use Types Packs/Day Years [...] this encounter Progress Notes * Meghana Felder, SPAR MACHINE OPERATOR - 05/22/2025 2:40 PM EDT Reason for Appointment: Patient ID: Amber Funes is a 25 y.o. female who presents for Routine Visit Patient presents today for Return OB appointment. MEDICATIONS Current Outpatient Medications Medication Instructions Alcohol Swabs (Alcohol Prep Pad) 70 % pads 1 Pad, Topical, Daily, Use four times daily to check FSBS. Blood Glucose Monitoring Suppl (Yottaa Glucometer) w/Device kit 1 kit, Does not [...] nursing note reviewed. Exam conducted with a pen tender present. Vitals: Estimated body mass index is 31.49 kg/m?? as calculated from the following: Height as of 01/06/23: 5' 3 . Weight as of this encounter: 177 lb 12 oz. BP: (!) 138/92 Patient's last menstrual period was 10/15/2024 (exact date). ASSESSMENT & PLAN ICD-10-CM 1. Third trimester ([facility]) Z34.93 POCT urinalysis dipstick manually resulted 2. 31 weeks gestation of ([facility]) Z3A.31 Return OB: Patient presents today for a routine obstetrics appointment. Patient is currently 31w2d . Patient states she is doing well but has complaints of being tired due to current . Patient has verbalizes frequent movement. labor precautions was discussed/given and patient was instructed to perform kick counts three times a day. Reviewed 24 hour urine protein. Pt calling in sugars to [facility]. Orders Placed This Encounter Procedures POCT urinalysis dipstick manually resulted Follow Up: Patient is to return to office in 2 week for routine OB appointment. Documented by Meghana Felder LPN on behalf of: Jose Rodriguez DO documented in this encounter Plan of Treatment Upcoming Encounters Date Type Department Care Team (Late st Contact Info) Description 06/12/2025 3:00 PM EDT Routine ARJUN Morataya OBGYN [address] [facility] [address] Rossana Ramos PA [address] [facility] [address] [place] [address] documented as of this encounter Procedures Procedure Name Priority Date/Time Associated Diagnosis Comments POCT URINALYSIS DIPSTICK Routine 05/22/2025 3:12 PM EDT Third trimester ([facility]) documented in this encounter Results * POCT [...] this encounter Visit Diagnoses Diagnosis Third trimester ([facility]) state, incidental 31 weeks gestation of ([facility]) documented in this encounter Care Teams Health Service Worker Relationship Specialty Start Date End Date Unallocated, Noms Provider[place] [address] PCP - General Family Medicine 08/03/24 documented as of this encounter
--- OUTSIDE RECORDS SUMMARY | 2025-05-28 10:30 | XMS_ITS | Encounter Summary ---
Author Organization [facility] Address [address] [place] [address] Care Team Providers Care Cross Country/Track And Field Coach Name Role Phone Unallocated, Noms Provider Primary Care Provi krissy Reason for Visit * Reason Comments Routine Visit Encounter Details Date Type Department Care Team (Late st Contact Info) Description 05/28/2025 10:30 AM EDT Routine [facility] [place] [facility] [address] [place] [address] Jose Rodriguez DO [address] Josué [place], [facility] Third trimester ([facility]); 32 weeks gestation of ([facility]); Gestational diabetes mellitus (GDM), antepartum, gestational diabetes method of control unspecified ([facility]); induced hypertension, antepartum ([facility]) Social History Tobacco Use Types [...] Sign Reading Time Taken Comments Blood Pressure 136/80 05/28/2025 10:48 AM EDT Pulse - - Temperature - - Respiratory Rate - - Oxygen Saturation - - Inhaled Oxygen Concentration - - Weight 82.1 kg (181 lb) 05/28/2025 10:48 AM EDT Height - - Body Mass Index 32.06 01/06/2023 12:00 PM EDT documented in this encounter Progress Notes * Meghana Felder LPN - 05/28/2025 10:30 AM EDT Reason for Appointment: Patient ID: Amber Funes is a 25 y.o. female who presents for Routine Visit Patient presents today for Return OB appointment. MEDICATIONS Current Outpatient Medications Medication Instructions Alcohol Swabs (Alcohol Prep Pad) 70 % pads 1 Pad, Topical, Daily, Use four times daily to check FSBS. Blood Glucose Monitoring Suppl (D-CHROMAom Glucometer) w/Device kit 1 kit, Does not [...] MG tablet 1 each, Every 24 hours ALLERGIES No Known Allergies PROBLEMS Active Ambulatory Problems Diagnosis Date Noted induced hypertension, antepartum ([facility]) 05/28/2025 Gestational diabetes mellitus (GDM), antepartum ([facility]) 05/28/2025 Resolved Ambulatory Problems Diagnosis Date Noted No Resolved Ambulatory Problems Past Medical History: Diagnosis Date Anemia Gestational diabetes ([facility]) History of blood transfusion Lead poisoning Miscarriage ([facility]) Nonsmoker Post depression HISTORY PAST MEDICAL HISTORY SOCIAL HISTORY Past Medical History: Diagnosis Date Anemia Gestational diabetes ([facility]) History of blood transfusion Lead poisoning Miscarriage ([facility]) Nonsmoker Post depression /anxiety Social [...] nursing note reviewed. Exam conducted with a vocational services specialist present. Vitals: Estimated body mass index is 32.06 kg/m?? as calculated from the following: Height as of 01/06/23: 5' 3 . Weight as of this encounter: 181 lb. BP: 136/80 Patient's last menstrual period was 10/15/2024 (exact date). ASSESSMENT & PLAN ICD-10-CM 1. Third trimester ([facility]) Z34.93 POCT urinalysis dipstick manually resulted 2. 32 weeks gestation of ([facility]) Z3A.32 3. Gestational diabetes mellitus (GDM), antepartum, gestational diabetes method of control unspecified ([facility]) O24.419 4. induced hypertension, antepartum ([facility]) O13.9 Return OB: Patient presents today for a routine obstetrics appointment. Patient is currently 32w1d . Patient states she is doing well but has complaints of being tired due to current . Patient has verbalizes frequent movement. labor precautions was discussed/given and patient was instructed to perform kick counts three times a day. Reviewed glucose log with pt- pt to bring in sugars next visit Orders Placed This Encounter Procedures POCT urinalysis dipstick manually resulted Follow Up: Patient is to return to office in 2 week for routine OB appointment. Documented by Meghana Felder LPN on behalf of: Jose Rodriguez DO documented in this encounter Plan of Treatment Upcoming Encounters Date Type Department Care Team (Late st Contact Info) Description 06/12/2025 3:00 PM EDT Routine [facility] [address] [place] [address] Rossana Ramos PA [address] [place] [address] documented as of this encounter Procedures Procedure Name Priority Date/Time Associated Diagnosis Comments POCT URINALYSIS DIPSTICK Routine 05/28/2025 11:00 AM EDT Third trimester ([facility]) documented in this encounter Results * POCT urinalysis dipstick manually resulted (05/28/2025 11:00 AM EDT) Color, UA Yellow Clarity, UA Clear Glucose, UA Negative Negative - 1999(110) ++++ mg/dL Bilirubin, UA Negative Negative - 4(70) +++ mg/dL Ketones, UA Negative Negative - 160(16) ++++ mg/dL Spec Grav, UA 1.005 1 - 1.03 Blood, UA Negative Negative - 50 Jason/mcL pH, UA 6.5 5 - 9 Protein, UA Negative Negative - 2000(20) ++++ mg/dL Urobilinogen, UA 1.0 0.2 - 12 mg/dL Leukocytes, UA Negative Negative - 500+++ Carlos/mcL Nitrite, UA Negative Negative - Positive Urine 05/28/2025 11:0 0 AM EDT Jose Rodriguez DO POINT OF CARE TEST ENTER/EDIT OR DERABLES Final Result documented in this encounter Visit Diagnoses Diagnosis Third trimester ([facility]) state, incidental 32 weeks gestation of ([facility]) Gestational diabetes mellitus (GDM), antepartum, gestational diabetes method of control unspecified ([facility]) induced hypertension, antepartum ([facility]) Transient hypertension of , antepartum documented in this encounter Care Teams Cross Country/Track And Field Coach Relationship Specialty Start Date End Date Unallocated, Noms Provider, [address] [place] [address] PCP - General Family Medicine 08/03/24 documented as of this encounter
--- OUTSIDE RECORDS SUMMARY | 2025-06-04 14:00 | XMS_ITS | Encounter Summary ---
Author Organization [facility] tem Address [id number] [address] [place] [address] Care Team Providers Care Principal Database Developer Name Role Phone Unavailable Primary Care Provider Unavailabl e Encounter Details Date Type Department Care Team (Late st Contact Info) Description 06/04/2025 2:00 PM EDT Telemedicine Maternal- Medicine at [facility] [address] [facility] [place] [phone] Manas Martin MD [address] [facility], [address] [place] [address] Poor growth affecting management of mother in [...] as of this encounter Progress Notes * Maans Martin MD - 06/04/2025 2:00 PM EDT [...] and the other consultants, we search on [employer] and all the available care everywhere epic I did review all the imaging studies of the patient available on EMR, ordered by the primary care physician and the other application development consultant HABITS: Patient activity no restrictions, diet [...] RECOMMENDATION: 1. Continue serial Doppler studies at [facility] office weekly 2. Continue testing form of [...] patient is in complete care of her underwear hemmer. Patient does have multiple ultrasound scheduled with us Thank you for allowing me to participate in Amber Funes . If there any questions please do nothesitate to contact us. Sincerely, MANAS MARTIN MD Video Visit via Real-time Synchronous Audiovisual Provider Location: [facility]- MEDICINE AT [address] [phone] Patient Location: Other [facility] office Patient Location Car Wiper: None Video Visit Consent Statement: I discussed [...] that there are some limitations compared to evyr-qi-bngo evaluations. We elected to proceed. documented in this encounter Plan of Treatment Upcoming Encounters Date Type Department Care Team (Late st Contact Info) Description 06/11/2025 8:00 AM EDT Appointment [facility] US Imaging [address] [place] [address] 06/18/2025 3:30 PM EDT Appointment [facility] US Imaging [address] [facility] [place] [address] 06/24/2025 2:15 PM EDT Appointment Maternal Medicine [place] [address] [place] [address] documented as of this encounter Visit Diagnoses Diagnosis Poor growth affecting management of mother in third trimester, single or unspecified fetus- Primary documented in this encounter
--- OUTSIDE RECORDS SUMMARY | 2025-06-05 17:02 | XMS_ITS | Encounter Summary ---
Author Organization [facility] Address [address] [place] [address] Care Team Providers Care Design Engineer Name Role Phone Unallocated, Noms Provider Primary Care Provi krissy Encounter Details Date Type Department Care Team (Late st Contact Info) Description 05/25/2025 Clinisync Result Encounter [facility] External Department Unsolicited Collin Leach PA [address] [facility] [address] [place], [place] [address] Social History Tobacco Use Types Packs/Day Years [...] PM EDT Routine [facility] Rafia OBCHICHO [address] [place] [address] Collin Leach PA [address] [facility] [address] [place], [facility]11 [phone] (work) documented as of this encounter Procedures Procedure Name Priority Date/Time Associated Diagnosis Comments US OB BPP W NON-STRESS 05/25/2025 11:13 AM EDT documented in this encounter Results * US OB BPP W NON-STRESS (05/25/2025 11:13 AM EDT) Anatomical Region Laterality Modality Other 05/25/2025 11:1 3 AM EDT Narrative 05/25/2025 11:16 [place] [address] Ultrasound Report Signed Patient: VIMAL PIZANO MR#: [id number] : 2000 Acct:[id number] Age/Sex: 25 / F ADM Date: 05/25/25 Loc: US Attending Dr: Collin Leach Ordering Physician: Collin Leach Date of Service: 05/25/25 Procedure(s): US OB BPP w non-stress Accession Number(s): [id number] cc: Collin Leach; LUIS SEE [address] [address] Patient Name: VIMAL PIZANO MRN: [id number] date: 2000 Sex: F Assigned Patient Location: [facility] Current Patient Location: Accession/Order Number: [id number] Exam Date: 05/25/2025 08:21 Report Date: 05/25/2025 [...] Acharya M.D. 05/25/2025 11:13 AM Dictation Location: [place] [address] Electronically authenticated by: [id number] Y Date: 05/25/2025 11:13 Dictated By: Heriberto Acharya M.D. Signed By: 05/25/25 1116 DD/ 1113 TD/TT: Community Health Counselor: Procedure Note Radiology, Radiologist, MD - 05/25/2025 [place] [address] Ultrasound Report Signed Patient: VIMAL PIZANO MMR#: [id number] : 2000Acct:[id number] Age/Sex: 25 / FADM Date: 05/25/25 Loc: US Attending Dr: Collin Leach Ordering Physician: Collin Leach Date of Service: 05/25/25 Procedure(s): US OB BPP w non-stress Accession Number(s): [id number] cc: Collin Leach; LUIS SEE [address] [address] Patient Name: VIMAL PIZANO MRN: [id number] date: 2000 Sex: F Assigned Patient Location: [facility] Current Patient Location: Accession/Order Number: [id number] Exam Date: 05/25/2025 08:21 Report Date: 05/25/2025 [...] Acharya M.D. 05/25/2025 11:13 AM Dictation Location: [place] [address] Electronically authenticated by: [id number] Y Date: 1:13 Dictated By: Heriberto Acharya M.D. Signed By:05/25/25 1116 DD/ 1113 TD/TT: Community Health Counselor: Collin BISWAS [facility] Final Result documented in this encounter Visit Diagnoses Not on filedocumented in this encounter Care Teams Design Engineer Relationship Specialty Start Date End Date Unallocated, Noms Provider, [address] [place] [address] PCP - General Family Medicine 08/03/24 documented as of this encounter
--- OUTSIDE RECORDS SUMMARY | 2025-06-05 17:02 | XMS_ITS | Encounter Summary ---
Author Organization [facility] [employer] [facility] tem Address [id number] [address] [place] [address] Care Team Providers Care Film Printer Name Role Phone Unavailable Primary Care Provider Unavailabl e Encounter Details Date Type Department Care Team (Latest Contact Info) Description 06/04/2025 Travel Social History Tobacco Use Types Packs/Day [...] Info) Description 06/11/2025 8:00 AM EDT Appointment [facility] US Imaging [address] [place] [address] 06/18/2025 3:30 PM EDT Appointment [facility] US Imaging [address] [place] [address] 06/24/2025 2:15 PM EDT Appointment Maternal Medicine [facility] [address] [place] [address] documented as of this encounter Visit Diagnoses Not on filedocumented in this encounter
--- OUTSIDE RECORDS SUMMARY | 2025-06-05 17:02 | XMS_ITS | Encounter Summary ---
Author Organization [facility] [employer] [facility] tem Address [id number] [address] [place] [address] Care Team Providers Care Car Rental Clerk Name Role Phone Unavailable Primary Care Provider Unavailabl e Reason for Referral * Diagnostic Imaging (Routine) - Pending Review Specialty Diagnoses / Procedures Referred By Contac t Referred To Contact Maternal and Medicine Diagnoses Poor growth affecting management of mother in third trimester, single or unspecified fetus Gestational diabetes mellitus (GDM) in third trimester, gestational diabetes method of control unspecified Procedures US MFM with or without consult Chris Navarro MD [address], [address] [place] [address] Phone: tel: fax: Maternal- Medicine at [facility] [address] [place] [address] Phone: tel: fax: Referral ID Status Reason Start Date Expiration Date V isits Requested Visits Authorized [id number] Pending Review 06/04/2025 06/04/2026 1 1 * Diagnostic Imaging (Routine) - Pending Review Specialty Diagnoses / Procedures Referred By Contac t Referred To Contact Maternal and Medicine Diagnoses Poor growth affecting management of mother in third trimester, single or unspecified fetus Gestational diabetes mellitus (GDM) in third trimester, gestational diabetes method of control unspecified Procedures US MF with or without consult Chris Navarro MD [address], [address] [place] [address] Phone: tel: fax: Maternal- Medicine at [facility] [address] [facility] [place] [address] Phone: tel: fax: Referral ID Status Reason Start Date Expiration Date V isits Requested Visits Authorized [id number] Pending Review 06/04/2025 06/04/2026 1 1 Encounter Details Date Type Department Care Team (Late st Contact Info) Description 06/04/2025 Orders Only Maternal- Medicine at [facility] [address] [facility] [place] [phone] Marii Yoo RN Poor growth affecting management of mother in third trimester, single or unspecified fetus (Primary Dx); Gestational diabetes mellitus (GDM) in third trimester, [...] Info) Description 06/11/2025 8:00 AM EDT Appointment [facility] - [facility] US Imaging [address] [facility] [place] [address] 06/18/2025 3:30 PM EDT Appointment [facility] US Imaging [address] [place] [address] 06/24/2025 2:15 PM EDT Appointment Maternal Medicine [place] [address] [place] [address] [address] [place] [address] Scheduled Orders Name Type Priority Associated Diagnoses Orde r Schedule US MFM with or without consult Imaging Routine Poor growth affecting management of mother in third trimester, single or unspecified fetus Gestational diabetes mellitus (GDM) in third trimester, gestational diabetes method of control unspecified Expected: 06/04/2026 (Approximate), Expires: 06/04/2026 US MFM with or without consult Imaging Routine Poor growth affecting management of mother in third trimester, single or unspecified fetus Gestational diabetes mellitus (GDM) in third trimester, gestational diabetes method of control unspecified Expected: 06/04/2026 (Approximate), Expires: 06/04/2026 documented as of this encounter Visit Diagnoses Diagnosis Poor growth affecting management of mother in third trimester, single or unspecified fetus- Primary Gestational diabetes mellitus (GDM) in third trimester, gestational diabetes method of control unspecified documented in this encounter
--- OUTSIDE RECORDS SUMMARY | 2025-06-05 17:02 | XMS_ITS | Encounter Summary ---
Author Organization [facility] tem Address [id number] [address] [place] [address] Care Team Providers Care Supervisor Paper Machine Name Role Phone Unavailable Primary Care Provider Unavailabl e Encounter Details Date Type Department Care Team ([facility] st Contact Info) Description 06/05/2025 Telephone Maternal- Medicine at [facility] [address] [place] [phone] Xenia Rayo, ALEC [address] [facility] [address] [place] [address] Social History Tobacco Use Types Packs/Day Years [...] encounter Miscellaneous Notes * Telephone Encounter - Xenia Rayo RD - 06/05/2025 11:08 AM EDT Received blood sugars from 05/27/25-06/02/25 and food log. 5 elevated fasting blood sugars, all after meals WNL. Food log demonstrated that she is mostly following the meal plan. Called to discuss, she notes that she tried peanut butter toast last night and her fasting this morning was 90 mg/dL. She would like to continue to try the peanut butter toast to see if this continues to give in target sugars , however if fasting numbers continue to be elevated, then it is likely time to start medication tocontrol fasting sugars. Encouraged to call or send in sugars towards the end of the week if numbersstill high so she can get on the schedule to discuss medication with a provider. Otherwise will send in more numbers again next week. documented in this encounter Plan of Treatment Upcoming Encounters Date Type Department Care Team (Late st Contact Info) Description 06/11/2025 8:00 AM EDT Appointment [facility] US Imaging [address] [place] [address] 06/18/2025 3:30 PM EDT Appointment [facility] US Imaging [address] [place] [address] 06/24/2025 2:15 PM EDT Appointment Maternal Medicine [place] [address] [place] [address] documented as of this encounter Visit Diagnoses Not on filedocumented in this encounter
--- OUTSIDE RECORDS SUMMARY | 2025-06-05 17:03 | XMS_ITS | Encounter Summary ---
Author Organization [facility] Address [address] [place] [address] Care Team Providers Care Fruit Loader Name Role Phone Unallocated, Noms Provider Primary Care Provi krissy Encounter Details Date Type Department Care Team (Late st Contact Info) Description 08/10/2024 Abstract ARJUN PANG [address] [facility] [address] Jose Rodriguez DO [address] [facility] [address] Josué [place], [facility]11 [...] 3:00 PM EDT Routine ARJUN PANG [address] [facility] [address] Rossana Ramos PA [address] [facility] [address] [place], [facility]11 documented as of this encounter Visit Diagnoses Not on filedocumented in this encounter Care Teams Fruit Loader Relationship Specialty Start Date End Date Unallocated, Noms Provider, [place] [address] PCP - General Family Medicine 08/03/24 documented as of this encounter
--- OUTSIDE RECORDS SUMMARY | 2025-06-05 17:03 | XMS_ITS | Encounter Summary ---
Author Organization [facility] Address [address] [place] [address] Care Team Providers Care Research Test Engine Operator Name Role Phone Vaishali Chaidez MD Primary Care Provider Bipin cheng Unallocated, Noms Provider Primary Care Provi krissy Encounter Details Date Type Department Care Team (Late st Contact Info) Description 06/29/2024 Clinisync Result Encounter [facility] External Department Unsolicited Mackenzie Rodriguez DO [address] [facility] [address] [place], [facility]11 Social History [...] EDT Routine [facility] [place] O[facility] [address] [facility] [place] [phone] Rossana Ramos PA [address] [facility] [address] [place], [facility]11 documented as of this encounter Procedures Procedure Name Priority Date/Time Associated Diagnosis Comments US OB TRANSVAGINAL 06/29/2024 9: 11 AM EDT documented in this encounter Results * US OB TRANSVAGINAL (06/29/2024 9:11 AM EDT) Anatomical Region Laterality Modality Other 06/29/2024 9:11 AM EDT Narrative 06/29/2024 9:14 [place] [address] Ultrasound Report Signed Patient: Vimal Pizano MR#: [id number] : 2000 Acct:[id number] Age/Sex: 24 / F ADM Date: 06/29/24 Loc: [facility]OM[facility] Attending Dr: Mackenzie Rodriguez D.O. Ordering Physician: Mackenzie Rodriguez D.O. Date of Service: 06/29/24 Procedure(s): US OB transvaginal Accession Number(s): [id number] cc: Mackenzie Rodriguez D.O.; VAISHALI CHAIDEZ [place] [address] Patient Name: VIMAL PIZANO MRN: [id number] date: 2000 Sex: F Assigned Patient [facility]: [facility] Current Patient Location: [facility] Accession/Order Number: [id number] Exam Date: 06/29/2024 08:37 Report Date: 06/29/2024 [...] M.D. Signed By: 06/29/24913 DD/ 0 TD/TT: Information Security Officer: Procedure Note Radiology, Radiologist, MD - 06/29/2024 [place] [address] Ultrasound Report Signed Patient: Vimal Pizano MMR#: [id number] : 2000Acct:[id number] Age/Sex: 24 / FADM Date: 06/29/24 Loc: [facility] Attending Dr: Mackenzie Rodriguez D.O. Ordering Physician: Mackenzie Rodriguez D.O. Date of Service: 06/29/24 Procedure(s): US OB transvaginal Accession Number(s): [id number] cc: Mackenzie Rodriguez D.O.; VAISHALI CHAIDEZ [place] [address] Patient Name: VIMAL PIZANO MRN: [id number] date: 2000 Sex: F Assigned Patient Location: [facility] Current Patient Location: [facility] Accession/Order Number: [id number] Exam Date: 06/29/2024 08:37 Report Date: 06/29/2024 [...] Herrera M.D. Signed By:06/29/24913 DD/ 0 TD/TT: Information Security Officer: us Mackenzie Michael DO [facility] Final Result documented in this encounter Visit Diagnoses Not on filedocumented in this encounter Care Teams Research Test Engine Operator Relationship Specialty Start Date End Date Vaishali Chaidez MD [address] [place] [address] PCP - General Family Medicine 02/04/23 08/02/24 Unallocated, Noms Provider, [address] [place] [address] PCP - General Family Medicine 08/03/24 documented as of this encounter
--- OUTSIDE RECORDS SUMMARY | 2025-06-05 17:03 | XMS_ITS | Encounter Summary ---
Author Organization [facility] Address [address] [place] [address] Care Team Providers Care Metal Filer Name Role Phone Unallocated, Noms Provider Primary Care Provi krissy Encounter Details Date Type Department Care Team (Late Contact Info) Description 05/08/2025 Abstract NOMMay PANG [address] [facility] [place] [address] Jose Rodriguez DO [address] [facility] [address] Josué [place], [facility]11 Social [...] 3:00 PM EDT Routine NOMMay PANG [address] [facility] [place] [place] [address] Rossana Ramos PA [address] [place] [address] [place] [address] documented as of this encounter Visit Diagnoses Not on filedocumented in this encounter Care Teams Metal Filer Relationship Specialty Start Date End Date Unallocated, Noms Provider, [address] [place] [address] PCP - General Family Medicine 08/03/24 documented as of this encounter
--- OUTSIDE RECORDS SUMMARY | 2025-06-05 17:03 | XMS_ITS | Encounter Summary ---
Author Organization [facility] Address [address] [place] [address] Care Team Providers Care Circulation Assistant Name Role Phone Unallocated, Noms Provider Primary Care Provi krissy Encounter Details Date Type Department Care Team (Late st Contact Info) Description 06/01/2025 Clinisync Result Encounter [facility] External Department Unsolicited Collin Leach PA [address] [facility] [address] [place], [place] [address] Social History Tobacco Use Types Packs/Day Years [...] PM EDT Routine [facility] Rafia OBCHICHO [address] [facility] [place] [address] Collin Leach PA [address] [facility] [address] [place], [facility]11 [phone] (work) documented as of this encounter Procedures Procedure Name Priority Date/Time Associated Diagnosis Comments US OB BPP W NON-STRESS 06/01/2025 12:03 PM EDT documented in this encounter Results * US OB BPP W NON-STRESS (06/01/2025 12:03 PM EDT) Anatomical Region Laterality Modality Other 06/01/2025 12:0 3 PM EDT Narrative 06/01/2025 12:06 [place] [address] Ultrasound Report Signed Patient: VIMAL PIZANO MR#: [id number] : 2000 Acct:[id number] Age/Sex: 25 / F ADM Date: 06/01/25 Loc: US Attending Dr: Collin Leach Ordering Physician: Collin Leach Date of Service: 06/01/25 Procedure(s): US OB BPP w non-stress Accession Number(s): [id number] cc: Collin Leach; LUIS SEE [address] [address] Patient Name: VIMAL PIZANO MRN: [id number] date: 2000 Sex: F Assigned Patient Location: Current Patient Location: Accession/Order Number: [id number] Exam Date: 06/01/2025 10:59 Report Date: 06/01/2025 12:03 At the request of: COLLIN LEACH Procedure: US OB BPP w non-stress Biophysical profile. Reason for exam: Gestational diabetes COMPARISON: 05/25/2025 TECHNIQUE: Transabdominal imaging of the gravid uterus was obtained. FINDINGS: The operator assistant i cementing reports a BPP of 8 out of 8. DANYA is normal at 11.0 cm. Cardiac activity was visualized by the operator assistant i cementing per tech note. No heart rate was documented. US/US OB BPP w non-stress IMPRESSION: BPP 8 out of 8. Impression dictated by: Bulmaro Arias Jr., D.O. 06/01/2025 12:03 PM Dictation Location: [facility]18 Electronically authenticated by: [id number] Y Date: 06/01/2025 12:03 Dictated By: Bulmaro Arias M.D. Signed By: 06/01/25 1206 DD/ 1203 TD/TT: Jewelry Mechanic: Procedure Note Radiology, Radiologist, - 06/01/2025 [place] [address] Ultrasound Report Signed Patient: VIMAL PIZANO MMR#: [id number] : 2000Acct:[id number] Age/Sex: 25 FADM Date: 06/01/25 Loc: US Attending Dr: Collin Leach Ordering Physician: Collin Leach Date of Service: 06/01/25 Procedure(s): US OB BPP w non-stress Accession Number(s): [id number] cc: Collin Leach; LUIS SEE [place] [id number] Patient Name: VIMAL PIZANO MRN: [id number] date: 2000 Sex: F Assigned Patient Location: US Current Patient Location: Accession/Order Number: [id number] Exam Date: 06/01/2025 10:59 Report Date: 06/01/2025 12:03 At the request of: COLLIN LEACH Procedure: US OB BPP w non-stress Biophysical profile. Reason for exam: Gestational diabetes COMPARISON: 05/25/2025 TECHNIQUE: Transabdominal imaging of the gravid uterus was obtained. FINDINGS: The operator assistant i cementing reports a BPP of 8 out of 8. DANYA is normal at11.0 cm. Cardiac activity was visualized by the operator assistant i cementing per tech note. No heart rate was documented. US/US OB BPP w non-stress IMPRESSION: BPP 8 out of 8. Impression dictated by: Bulmaro Arias Jr., D.O. 06/01/2025 12:03 PM Dictation Location: [facility]18 Electronically authenticated by: [id number] Y Date: 9/06/478128:03 Dictated By: Bulmaro Arias M.D. Signed By:06/01/25 1206 DD/ 1203 TD/TT: Jewelry Mechanic: us Collin BISWAS [facility] Final Result documented in this encounter Visit Diagnoses Not on filedocumented in this encounter Care Teams Circulation Assistant Relationship Specialty Start Date End Date Unallocated, Noms Provider, [facility] [place] [address] PCP - General Family Medicine 08/03/24 documented as of this encounter
--- OUTSIDE RECORDS SUMMARY | 2025-06-05 17:03 | XMS_ITS | Encounter Summary ---
Author Organization [facility] Address [address] [place] [address] Care Team Providers Care Die Designer Name Role Phone Unallocated, Noms Provider Primary Care Provi krissy Encounter Details Date Type Department Care Team (Late st Contact Info) Description 03/06/2025 Orders Only ARJUN PANG [address] [facility] [place] [address] Kavitha Almanza [place] Social History Tobacco [...] 3:00 PM EDT Routine NOMMay PANG [address] [facility] [place] [address] Rossana Ramos PA [address] [facility] [address] [place], [facility]11 documented as of this encounter Procedures Procedure Name Priority Date/Time Associated Diagnosis Comments PAP SMEAR Routine 02/20/2025 12:00 AM EDT documented in this encounter Results * Pap Smear (02/20/2025 12:00 AM EDT) Swab Cervical swab / Unknown Rossana BISWAS [facility] CYTOLOGY ORDERABLES Final Re sult EXTERNAL LAB documented in this encounter Visit Diagnoses Not on filedocumented in this encounter Care Teams Die Designer Relationship Specialty Start Date End Date Unallocated, Noms Provider, [address] [place] [address] PCP - General Family Medicine 08/03/24 documented as of this encounter
--- OUTSIDE RECORDS SUMMARY | 2025-06-05 17:03 | XMS_ITS | Encounter Summary ---
Author Organization [facility] Address [address] [place] [address] Care Team Providers Care Tank Charger Name Role Phone Unallocated, Noms Provider Primary Care Provi krissy Encounter Details Date Type Department Care Team (Late st Contact Info) Description 06/05/2025 Abstract [facility] [address] [facility] [place] [address] Jose Rodriguez DO [address] [facility] [address] Josué Morataya, [facility]11 Social History Tobacco Use Types Packs/Day Years [...] 3:00 PM EDT Routine [facility] [address] [facility] [place] [place] [address] Rossana Ramos PA [address] [place] [address] [place] [address] documented as of this encounter Visit Diagnoses Not on filedocumented in this encounter Care Teams Tank Charger Relationship Specialty Start Date End Date Unallocated, Noms Provider, [address] [place] [address] PCP - General Family Medicine 08/03/24 documented as of this encounter
--- OUTSIDE RECORDS SUMMARY | 2025-06-05 17:03 | XMS_ITS | Encounter Summary ---
Author Organization [facility] Address [address] [place] [address] Care Team Providers Care Electric Stop Installer Name Role Phone Unallocated, Noms Provider Primary Care Provi krissy Encounter Details Date Type Department Care Team (Late st Contact Info) Description 03/11/2025 Results Follow-Up ARJUN Morataya OBGYN [address] [facility] [address] [place] [address] Glenna Butler LPN [address] [place] [address] [place] OB ANATOMY Social History [...] PM EDT Routine [facility] Morataya [facility] [address] [facility] [place] [address] Rossana Ramos PA [address] [facility] [place] [address] documented as of this encounter Visit Diagnoses Not on filedocumented in this encounter Care Teams Electric Stop Installer Relationship Specialty Start Date End Date Unallocated, [place] [address] PCP - General Family Medicine 08/03/24 documented as of this encounter
--- OUTSIDE RECORDS SUMMARY | 2025-06-05 17:03 | XMS_ITS | Encounter Summary ---
Author Organization [facility] Address [address] [place] [address] Care Team Providers Care Foot Roentgenologist Name Role Phone Vaishali Zapata MD Primary Care Provider Bipin cheng Unallocated, Noms Provider Primary Care Provi krissy Encounter Details Date Type Department Care Team (Late st Contact Info) Description 06/29/2024 Abstract [facility] [address] [facility] [place] [address] Jose Rodriguez DO [address] [facility] [address] Josué Morataya, [facility] Social History Tobacco Use Types [...] 3:00 PM EDT Routine [facility] PANG [address] [facility] [place] [address] Rossana Ramos PA [address] [facility] [place] [address] documented as of this encounter Visit Diagnoses Not on filedocumented in this encounter Care Teams Foot Roentgenologist Relationship Specialty Start Date End Date Vaishali Zapata MD [address] [place] [address] PCP - General Family Medicine 02/04/23 08/02/24 Unallocated, Noms Provider, [address] [place] [address] PCP - General Family Medicine 08/03/24 documented as of this encounter
--- OUTSIDE RECORDS SUMMARY | 2025-06-05 17:03 | XMS_ITS | Encounter Summary ---
Author Organization [facility] Address [address] [place] [address] Care Team Providers Care Field Contact Technician Name Role Phone Unallocated, Noms Provider Primary Care Provi krissy Encounter Details Date Type Department Care Team (Late st Contact Info) Description 08/10/2024 Clinisync Result Encounter [facility] External Department Unsolicited Mackenzie Rodriguez DO [address] [facility] [address] Josué Morataya, [facility] - [...] PM EDT Routine [facility] [address] [facility] [place] [place] [address] Rossana Ramos PA [address] [facility] [place] [address] documented as of this encounter Procedures Procedure Name Priority Date/Time Associated Diagnosis Comments US OB TRANSVAGINAL 08/10/2024 8: 44 AM EST documented in this encounter Results * US OB TRANSVAGINAL (08/10/2024 8:44 AM EST) Anatomical Region Laterality Modality Other 08/10/2024 8:44 AM EST Narrative 08/10/2024 8:47 [place] [address] Ultrasound Report Signed Patient: VIMAL PIZANO MR#: [id number] : 2000 Acct:[id number] Age/Sex: 24 / F ADM Date: 08/10/24 Loc: SURGOUT Attending Dr: Mackenzie Rodriguez D.O. Ordering Physician: Mackenzie Rodriguez D.O. Date of Service: 08/10/24 Procedure(s): US OB transvaginal Accession Number(s): [id number] cc: LUIS SEE ; Mackenzie Rodriguez D.O. [facility] [place] [id number] Patient Name: VIMAL PIZANO MRN: [id number] date: 2000 Sex: F Assigned Patient Location: [facility] Current Patient Location: [facility] Accession/Order Number: [id number] Exam Date: 08/10/2024 08:10 Report Date: 08/10/2024 [...] M.D. Signed By: 08/10/2447 DD/ 3 TD/TT: Telemetry Nurse: Procedure Note Radiology, Radiologist, MD - 08/10/2024 [place] [address] Ultrasound Report Signed Patient: VIMAL PIZANO MMR#: [id number] : 2000Acct:[id number] Age/Sex: 24 / FADM Date: 08/10/24 Loc: SURGOUT Attending Dr: Mackenzie Rodriguez D.O. Ordering Physician: Mackenzie Rodriguez D.O. Date of Service: 08/10/24 Procedure(s): US OB transvaginal Accession Number(s): [id number] cc: LUIS SEE ; Mackenzie Rodriguez D.O. [facility] [place] [id number] Patient Name: VIMAL PIZANO MRN: [id number] date: 2000 Sex: F Assigned Patient Location: [facility] Current Patient Location: [facility] Accession/Order Number: [id number] Exam Date: 08/10/2024 08:10 Report Date: 08/10/2024 [...] Estefany Herrera M.D. Signed By:08/10/2447 DD/ TD/TT: Telemetry Nurse: us Mackenzie Michael DO [facility] Final Result documented in this encounter Visit Diagnoses Not on filedocumented in this encounter Care Teams Field Contact Technician Relationship Specialty Start Date End Date Unallocated, Noms Provider, [address] [place] [address] PCP - General Family Medicine 08/03/24 documented as of this encounter
--- OUTSIDE RECORDS SUMMARY | 2025-06-05 17:03 | XMS_ITS | Clinical Summary ---
Author Organization [facility] Address [address] [place] [address] Care Team Providers Care Nailer Operator Name Role Phone Unallocated, Noms Provider [...] antepartum, gestational diabetes method of control unspecified ([facility]),Elevat ed glucose tolerance test Apply 1 Pad topically Daily Use four times daily to check FSBS. 150 each 3 5 Active Glucose Blood (Blood Glucose Test) stripIndications :Gestational diabetes mellitus (GDM), antepartum, gestational diabetes method of control unspecified ([facility]),Elevat ed glucose tolerance test 1 strip by In Vitro route Daily Use in the morning prior to breakfast, 1 hour after each meal for a total of 4times daily. 150 strip 3 5 06/07/20 25 Active Blood Glucose Monitoring Suppl (Listen Up-Linksify Glucometer) w/Device kitIndications:G estational diabetes mellitus (GDM), antepartum, gestational diabetes method of control unspecified ([facility]),Elevat ed glucose tolerance test 1 kit Daily [...] Noted Date Diagnosed Date induced hypertension, antepartum ([facility]) 05/28/2025 Gestational diabetes mellitus (GDM), antepartum ([facility]) 05/28/2025 Estimated Date of Delivery Comme nts Yes 07/22/2025 Based on last me nstrual period of 10/15/2024 (Exact Date) Encounters Date Type Department Care Team Description 06/05/2025 Abstract [facility] [address] [place] [address] Mackenzie Rodriguez, 06/04/2025 External [place] [address] Mackenzie Rodriguez, 06/01/2025 Clinisync Result Encounter [facility] External Department Unsolicited Rossana Leach PA 05/28/2025 10:30 AM EDT Routine [facility] [address] [facility] [place] [address] Mackenzie Rodriguez, Third trimester ([facility]); 32 weeks gestation of ([facility]); Gestational diabetes mellitus (GDM), antepartum, gestational diabetes method of control unspecified ([facility]); induced hypertension, antepartum ([facility]) 05/28/2025 Bamboo flowsheet [facility] [address] [place] [id number] Mackenzie Rodriguez, DO 05/25/2025 Clinisync Result Encounter [facility]OMS External Department Unsolicited Rossana Leach PA 05/22/2025 2:40 PM EDT Routine [facility] [place] [address] Mackenzie Rodriguez, Third trimester ([facility]); 31 weeks gestation of ([facility]) 05/22/2025 Bamboo flowsheet [facility] [address] [place] [address] Mackenzie Rodriguez, 05/20/2025 Clinisync Result Encounter [facility]OM[facility] External Department Unsolicited Mackenzie Rodriguez, DO 05/18/2025 Clinisync Result Encounter [facility]OM[facility] External Department Unsolicited Rossana Leach PA 05/18/2025 Clinisync Result Encounter [facility]OM[facility] External Department Unsolicited Mackenzie Rodriguez, DO 05/14/2025 2:40 PM EDT Routine [facility] [address] [facility] [place] [address] Mackenzie Rodriguez, Third trimester ([facility]); 30 weeks gestation of ([facility]); induced hypertension, antepartum ([facility]) 05/14/2025 Bamboo flowsheet [facility] [address] [place] [place] [address] Mackenzie Rodriguez, DO 05/11/2025 Clinisync Result Encounter NOMS External Department Unsolicited Rossana Leach PA 05/08/2025 [place] [address] Mackenzie Rodriguez, DO 05/07/2025 Results [place] [address] Glenna Butler, DRUG AND ALCOHOL TREATMENT SPECIALIST ALL CBC WITH AUTO DIFF, SRMCOH PROTHROMBIN [...] [place] [address] Rossana Leach, PA BP check; -induced hypertension in third trimester ([facility]); Gestational diabetes mellitus (GDM) in third trimester, gestational diabetes method of control unspecified ([facility]) 04/30/2025 [place] [address] Rossana Leach PA 04/29/2025 [place] [address] Kavitha Almanza MA 04/27/2025 Clinisync Result Encounter NOMS External Department Unsolicited Rossana Leach PA 04/25/2025 2:50 PM [place] [address] Rossana Lecah PA Second trimester ([facility]); 27 weeks gestation of ([facility]); induced hypertension, antepartum ([facility]) 04/25/2025 [place] [address] Rossana Leach PA 04/11/2025 3:30 [place] [address] Rossana Leach PA Second trimester ([facility]); 25 weeks gestation of ([facility]); Diabetes mellitus screening; Elevated BP without diagnosis of hypertension 04/11/2025 [place] [address] Rossana Leach PA 03/28/2025 [place] [address] Mackenzie Rodriguez, 03/25/2025 Clinisync Result Encounter [facility]OM[facility] External Department Unsolicited Mackenzie Rodriguez, 03/14/2025 10:50 [place] [address] Mackenzie Rodriguez, Second trimester ([facility]); 21 weeks gestation of ([facility]) 03/14/2025 [place] [address] Mackenzie Rodriguez, 03/11/2025 [place] [phone] Glenna Butler, DRUG AND ALCOHOL TREATMENT SPECIALIST OB ANATOMY 03/11/2025 Telephone [facility] [address] [place] [address] MeghanaGlenna monk, MARILU 03/08/2025 Clinisync Result Encounter NOMS External Department Unsolicited Muna Rodriguezy, DO 03/08/2025 Clinisync Result Encounter [facility]OMS External Department Unsolicited Mackenzie Rodriguez, DO 03/06/2025 Orders Only [facility] [address] [place] [address] Kavitha Almanza MA from Last 3 [...] Routine [facility] [address] [place] [address] Rossana Leach PA [address] [place] [address] Health Maintenance Due Date Last Done Comments Influenza Vaccine (#1) 2025 08/28/2003, 2002 Procedures Procedure Name Priority Date/Time Associated Diagnosis Comments US OB 14+ WEEKS ANATOMY SCAN 06/04/2025 4:20 PM EDT US OB BPP W NON-STRESS 06/01/2025 12:03 PM EDT POCT URINALYSIS DIPSTICK Routine 05/28/2025 11:00 AM EDT Third trimester ([facility]) US OB BPP W NON-STRESS 05/25/2025 11:13 AM EDT POCT URINALYSIS DIPSTICK Routine 05/22/2025 3:12 PM EDT Third trimester ([facility]) TBH TOTAL PROTEIN 24 HOUR URINE Routine [...] Routine 04/25/2025 3:12 PM EDT Second trimester ([facility]) POCT URINALYSIS DIPSTICK Routine 04/11/2025 3:44 PM EDT Second trimester ([facility]) US OB INCOMPLETE ANATOMY 03/25/2025 8:25 AM EDT POCT URINALYSIS DIPSTICK Routine 03/14/2025 11:39 AM EDT Second trimester ([facility]) US OB CERVICAL LENGTH 03/08/2025 8:36 PM EDT US OB ANATOMY 03/08/2025 8:36 PM EDT from Last 3 Months Results * US OB 14+ weeks anatomy scan (06/04/2025 4:20 PM EDT) Anatomical Region Laterality Modality Body Ultrasound 06/04/2025 4:20 PM EDT Narrative 06/04/2025 4:20 PM EDT THIS EXAM WAS PERFORMED AT [facility] NAME: MARIN CELIS : 2000 SEX: F Accession Number: [id number] ORDERING PHYSICIAN: CHRIS MARTIN REFERRING PHYSICIAN: MACKENZIE RODRIGUEZ Coding ----- --------- Procedures 56207: Ultrasound, uterus, real time with image documentation, and maternal evaluation plus detailed anatomic examination, transabdominal approach;single or first gestation 67683: Doppler velocimetry, ; umbilical artery Indication ----- --------- Screening for Anatomic Survey, IUGR-Poor growth, Gestational diabetes, Gestational hypertension without significant proteinuria. History ----- --------- OB History 3. Para 1 T1A1 Current ----- --------- Cell free DNA low risk analysis Maternal Assessment ----- --------- Physical Exam Height 160 cm, 5 ft 3 in. Initial weight 80 kg, 176 lb. Initial BMI 31.18 kg/m??? Method ----- --------- Transabdominal ultrasound examination. View: [...] by U/S 30 w + 0 d LYIDA by U/S: 08/13/2025 Assigned: based on the [...] EFW (oz) 4 oz EFW by: Hadlock (JFV-XL-CP-FL) Extended Tibia 49.0 mm 29w 3d <1% Khanh Foot 56.8 mm <1% Chitty Rn Cardiac 4.6 mm CM 6.2 mm 19% Nicolaides [...] bone. Maxilla. Mandible. Orbits. Heart/Thorax: LVOT view. 1-ouexnu-tovexkr view. Situs. Ductal arch view. Cardiac position. [...] 1.7 cm x 2.1 cm. Vol 6.5 cm??? Left Ovary Visualized Size 2.8 cm x 1.9 cm x 1.6 cm. Vol 4.4 cm??? Cul de Sac Visualized Impression ----- --------- [...] 4.2 cm. Recommendations ----- --------- Please see [facility] documentation from today. Subsequent follow up or other follow up as clinically determined by primary OB provider unless otherwise specified by MFM. Results forwarded to ordering provider so they can follow up with the patient as necessary. The copy-to physician of this order is MACKENZIE Victoria The ordering physician of this order is CHRIS Patterson Procedure Note Radiology, Radiologist, - 06/04/2025 THIS EXAM WAS PERFORMED AT [facility] NAME: MARIN CELIS : 2000 SEX: F Accession Number: [id number] ORDERING PHYSICIAN: CHRIS MARTIN REFERRING PHYSICIAN: MACKENZIE RODRIGUEZ Coding ----- --------- Procedures [id number]: Ultrasound, uterus, real time with imagedocumentation, and maternal evaluation plus detailed anatomic examination, transabdominalapproach;single or first gestation 67623: Doppler velocimetry, ; umbilical artery Indication ----- --------- Screening for Anatomic Survey, IUGR-Poor growth, Gestationaldiabetes, Gestational hypertension without significant proteinuria. History ----- --------- OB History 3. Para 1 T1A1 Current ----- --------- Cell free DNA low risk analysis Maternal Assessment ----- --------- Physical Exam Height 160 cm, 5 ft 3 in. Initial weight 80 kg, 176 lb.Initial BMI 31.18 kg/m??? Method ----- --------- Transabdominal ultrasound examination. View: [...] EFW (oz) 4 oz EFW by: Hadlock (BQR-HM-XY-FL) Extended Tibia 49.0 mm 29w 3d <1% Khanh Foot 56.8 mm <1% Chitty Rn Cardiac 4.6 mm CM 6.2 mm 19% Nicolaides [...] bone. Maxilla. Mandible. Orbits. Heart/Thorax: LVOT view. 1-uuykff-jbpcejn view. Situs. Ductal arch view.Cardiac position. Cardiac [...] 1.7 cm x 2.1 cm. Vol 6.5 cm??? Left Ovary Visualized Size 2.8 cm x 1.9 cm x 1.6 cm. Vol 4.4 cm??? Cul de Sac Visualized Impression ----- --------- [...] measurement within 2 SD of the mean (Johnsonak and colleagues, 1984). Umbilical artery S/D ratio in normal range. Placentomegaly noted which measures 7.7 cm. Amniotic fluid MVP measures 4.2 cm. Recommendations ----- --------- Please see MFM documentation from today. Subsequent follow up or other follow up as clinically determined byprimary OB provider unless otherwise specified by MFM. Results forwarded to ordering provider so they can follow up with thepatient as necessary. The copy-to physician of this order is MACKENZIE Victoria The ordering physician of this order is CHRIS Patterson us Mackenzie Rodriguez DO [facility] OB US PROCEDURES Final Resul t * US OB BPP W NON-STRESS (06/01/2025 12:03 PM EDT) Only the most recent of5 resultswithin the time period is included. Anatomical Region Laterality Modality Other 06/01/2025 12:0 3 PM EDT Narrative 06/01/2025 12:06 PM EDT [address] [address] Ultrasound Report Signed Patient: VIMAL FUNES MR#: [id number] : 2000 Acct:[id number] Age/Sex: 25 / F ADM Date: 06/01/25 Loc: US Attending Dr: Rossana Leach Ordering Physician: Rossana Leach Date of Service: 06/01/25 Procedure(s): US OB BPP w non-stress Accession Number(s): [id number] cc: LUIS Watkins [place] [id number] Patient Name: VIMAL FUNES MRN: [id number] date: 2000 Sex: F Assigned Patient Location: US Current Patient Location: Accession/Order Number: [id number] Exam Date: 06/01/2025 10:59 Report Date: 06/01/2025 12:03 At the request of: ROSSANA LEACH Procedure: US OB BPP w non-stress Biophysical profile. Reason for exam: Gestational diabetes COMPARISON: 05/25/2025 TECHNIQUE: Transabdominal imaging of the gravid uterus was obtained. FINDINGS: The assistant community manager reports a BPP of 8 out of 8. DANYA is normal at 11.0 cm. Cardiac activity was visualized by the assistant community manager per tech note. No heart rate was documented. US/US OB BPP w non-stress IMPRESSION: BPP 8 out of 8. Impression dictated by: Bulmaro Arias Jr., D.O. 06/01/2025 12:03 PM Dictation Location: [place] [address] Electronically authenticated by: [id number] Y Date: 06/01/2025 12:03 Dictated By: Bulmaro Arias M.D. Signed By: 06/01/25 1206 DD/ 1203 TD/TT: House Mover Supervisor: Procedure Note Radiology, Radiologist, MD - 06/01/2025 [place] [address] Ultrasound Report Signed Patient: VIMAL FUNES MMR#: [id number] : 2000Acct:[id number] Age/Sex: 25 / FADM Date: 06/01/25 Loc: US Attending Dr: Rossana Leach Ordering Physician: Rossana Leach Date of Service: 06/01/25 Procedure(s): US OB BPP w non-stress Accession Number(s): [id number] cc: LUIS Watkins [place] [id number] Patient Name: VIMAL FUNES MRN: [id number] date: 2000 Sex: F Assigned Patient Location: US Current Patient Location: Accession/Order Number: [id number] Exam Date: 06/01/2025 10:59 Report Date: 06/01/2025 12:03 At the request of: ROSSANA LEACH Procedure: US OB BPP w non-stress Biophysical profile. Reason for exam: Gestational diabetes COMPARISON: 05/25/2025 TECHNIQUE: Transabdominal imaging of the gravid uterus was obtained. FINDINGS: The assistant community manager reports a BPP of 8 out of 8. DANYA is normal at11.0 cm. Cardiac activity was visualized by the assistant community manager per tech note. No heart rate was documented. US/US OB BPP w non-stress IMPRESSION: BPP 8 out of 8. Impression dictated by: Bulmaro Arias Jr., D.O. 06/01/2025 12:03 PM Dictation Location: [email or web address] Electronically authenticated by: [id number] Y Date: 2:03 Dictated By: Bulmaro Arias M.D. Signed By:06/01/25 1206 DD/ 1203 TD/TT: House Mover Supervisor: us Rossana Leach PA [facility] Final Result * POCT urinalysis dipstick manually resulted (05/28/2025 [...] Positive Urine 05/28/2025 11:0 0 AM EDT [facility] Michael DO POINT OF CARE TEST ENTER/EDIT [...] Narrative CLINISYNC - 05/20/2025 7:25 PM EDT [facility] Michael DO CLINISYNC Final Result Performing Organization Address City/[facility]/ZIP Co de Phone Number [facility] * (ABNORMAL) TBH CREATININE (05/18/2025 11:03 AM EDT) Only the most recent of2 resultswithin the time period is included. CREATININE 0.38(L) 0.55 - 1.02 mg/dL TBH TBH EGFR-AF TRISTANIAN >60 >=60 mL/min/1.7 3m 2 TBH TBH EGFR-NON AF TRISTANIAN >60 >=60 mL/min/1.7 3m 2 TBH 05/18/2025 11:0 3 AM EDT 05/18/2025 11:08 AM EDT Narrative CLINISYNC - 05/18/2025 11:50 AM EDT [facility] Michael DO CL[facility]IS[facility]NC Final Result [facility] SRMCOH PROTHROMBIN TIME INR W/O COUM [...] DO CLINISYNC Final Result Performing Organization Address [facility] de Phone Number [facility] * [facility] AST (05/18/2025 11:03 AM EDT) Only the most recent of2 resultswithin the time period is included. ASPARTATE AMINO TRANSFERASE 18 15 - 37 U/L TB 05/18/2025 11:0 3 AM EDT 05/18/2025 11:08 AM EDT Narrative CLINISYNC - 05/18/2025 11:50 AM EDT Mackenzie Michael DO CLINISYNC Final Result Performing Organization Address [facility] de Phone Number [facility] * CC APTT (05/18/2025 11:03 AM EDT) Only the most recent of2 resultswithin the time period is included. PARTIAL THROMBOPLASTIN TIME 25.6 22.3 - 36.2 sec TBH 05/18/2025 11:0 3 AM EDT 05/18/2025 11:08 AM EDT Narrative CLINISYNC - 05/18/2025 11:29 AM EDT Mackenzie Michael DO CLINISYNC Final Result Performing Organization Address [facility]/State/ZIP Co de Phone Number [facility] * ALL URIC ACID (05/18/2025 11:03 AM EDT) Only the most recent of2 resultswithin the time period is included. [facility] URIC ACID 4.0 2.6 - 6.0 mg/dL TB 05/18/2025 11:0 3 AM EDT 05/18/2025 11:08 AM EDT Narrative CLINISYNC - 05/18/2025 11:50 AM EDT Mackenzie Michael DO CLINISYAR Final Result Performing Organization Address City/[facility]/ZIP Co de Phone Number [facility] * ALL LDH (05/18/2025 11:03 AM EDT) Only the most recent of2 resultswithin the time period is included. [facility] LACTATE DEHYDROGENASE 147 81 - 234 U/L [facility] 05/18/2025 11:0 3 AM EDT 05/18/2025 11:08 AM EDT Narrative CLINISYNC - 05/18/2025 11:50 AM EDT [facility] Final Result Performing Organization Address [facility] Co de Phone Number [facility] * (ABNORMAL) ALL CBC WITH AUTO DIFF (05/18/2025 11:03 AM EDT) Only the most recent of3 resultswithin the time period is included. [facility] TB WBC 15.0(H) 4.0 - 11.0 10 3/uL TBH TB RBC 4.17(L) 4.20 - 5.40 10 6/uL TBH TBH HGB 13.3 12.0 - 16.0 g/dL TB TBH HCT 38.1 36.0 - 48.0 % [...] EDT Mackenzie Michael DO CLINIS[facility]NC Final Result [facility] * ALL BUN (05/18/2025 11:03 AM EDT) Only the most recent of2 resultswithin the time period is included. Pathologist [facility] BLOOD UREA NITROGEN 9.0 7.0 - 18.0 mg/dL TBH 05/18/2025 11:0 3 AM EDT 05/18/2025 11:08 AM EDT Narrative CLINISYNC - 05/18/2025 11:50 AM EDT Mackenzie Michael DO CLINISYNC Final Result CLINISYNC TBH * US OB GROWTH (05/04/2025 12:08 PM EDT) Anatomical Region Laterality Modality Other 05/04/2025 12:0 8 PM EDT Narrative 05/04/2025 12:11 PM EDT [address] [address] Ultrasound Report Signed Patient: VIMAL FUNES MR#: [id number] : 2000 Acct:[id number] Age/Sex: 25 / F ADM Date: 05/04/25 Loc: [facility] 250-[address]: Rossana Leach Ordering Physician: Rossana Leach Date of Service: 05/04/25 Procedure(s): US OB growth Accession Number(s): [id number] cc: Rossana Leach; LUIS SEE [address] [address] Patient Name: VIMAL FUNSE MRN: [id number] date: 2000 Sex: F Assigned Patient Location: [facility] Current Patient Location: [facility] Accession/Order Number: [id number] Exam Date: 05/04/2025 12:06 Report Date: 05/04/2025 [...] Jr., D.O. 05/04/2025 12:08 PM Dictation Location: [email or web address] Electronically authenticated by: [id number] Y Date: 05/04/2025 12:08 Dictated By: Bulmaro Arias M.D. Signed By: 05/04/25 1211 DD/ 1208 TD/TT: House Mover Supervisor: Procedure Note Radiology, Radiologist, - 05/04/2025 [place] [address] Ultrasound Report Signed Patient: VIMAL FUENS MMR#: [id number] : 2000Acct:[id number] Age/Sex: 25 / FADM Date: 05/04/25 Loc: [facility] 250-[address]: Rossana Leach Ordering Physician: Rossana Leach Date of Service: 05/04/25 Procedure(s): US OB growth Accession Number(s): [id number] cc: Rossana Leach; LUIS SEE [place] [address] Patient Name: VIMAL FUNES MRN: [id number] date: 2000 Sex: F Assigned Patient Location: [facility] Current Patient Location: [facility] Accession/Order Number: [id number] Exam Date: 05/04/2025 12:06 Report Date: 05/04/2025 [...] Jr., DGeneOGene 05/04/2025 12:08 PM Dictation Location: [employer] Electronically authenticated by: [id number] Y Date: 2:08 Dictated By: Bulmaro Arias M.D. Signed By:05/04/25 1211 DD/ 1208 TD/TT: House Mover Supervisor: Rossana BISWAS [facility]AG[facility] Final Result * [...] ORDERABLES Final Resul t Performing Organization Address City/[facility]/ZIP Co de Phone Number CLINISYNC TB * (ABNORMAL) GLUCOSE 1 HOUR (04/27/2025 10:05 AM EDT) GLUCOSE 1 HOUR 171(H) <130 mg/dL TBH 04/27/2025 10:0 5 AM EDT 04/27/2025 10:06 AM EDT Narrative CLINISYNC - 04/27/2025 10:45 AM EDT Rossana BISWAS LAB BLOOD ORDERABLES Final Resul t CLINISYNC TB * US OB INCOMPLETE ANATOMY (03/25/2025 8:25 AM EDT) Anatomical Region Laterality Modality Other 03/25/2025 8:25 AM EDT Narrative 03/25/2025 8:27 AM EDT The [address] [address] Ultrasound Report Signed Patient: VIMAL FUNES MR#: [id number] : 2000 Acct:[id number] Age/Sex: 24 / F ADM Date: 03/23/25 Loc: US Attending Dr: Mackenzie Rodriguez D.O. Ordering Physician: Mackenzie Rodriguez D.O. Date of Service: 03/23/25 Procedure(s): US OB incomplete anatomy Accession Number(s): [id number] cc: LUIS SEE ; Mackenzie Rodriguez D.O. The [place] [address] Patient Name: VIMAL FUNES MRN: [id number] date: 2000 Sex: F Assigned Patient Location: US Current Patient Location: US Accession/Order Number: [id number] Exam Date: 03/25/2025 08:23 Report Date: 03/25/2025 [...] Brown M.D. 03/25/2025 8:25 AM Dictation Location: [place] [address] Electronically authenticated by: [id number] Y Date: 03/25/2025 08:25 Dictated By: Meghana Brown M.D. Signed By: 03/25/25826 DD/ 4 TD/TT: House Mover Supervisor: Procedure Note Radiology, Radiologist, - 03/25/2025 [place] [address] Ultrasound Report Signed Patient: VIMAL FUNES MMR#: [id number] : 2000Acct:[id number] Age/Sex: 24 / FADM Date: 03/23/25 Loc: US Attending Dr: Mackenzie Rodriguez D.O. Ordering Physician: Mackenzie Rodriguez D.O. Date of Service: 03/23/25 Procedure(s): US OB incomplete anatomy Accession Number(s): [id number] cc: LUIS SEE ; Mackenzie Rodriguez D.O. [address] [address] Patient Name: VIMAL FUNES MRN: [id number] date: 2000 Sex: F Assigned Patient Location: US Current Patient Location: US Accession/Order Number: [id number] Exam Date: 03/25/2025 08:23 Report Date: 03/25/2025 [...] Brown M.D. 03/25/2025 8:25 AM Dictation Location: [place] [address] Electronically authenticated by: [id number] Y Date: :25 Dictated By: Meghana Brown M.D. Signed By:03/25/2527 DD/ 4 TD/TT: House Mover Supervisor: Mackenzie Rodriguez DO [facility] IMAG[facility] Final Result * US OB CERVICAL LENGTH (03/08/2025 8:36 PM EDT) Anatomical Region Laterality Modality Other 03/08/2025 8:36 PM EDT Narrative 03/08/2025 8:38 PM EDT [address] [address] Ultrasound Report Signed Patient: VIMAL FUNES MR#: [id number] : 2000 Acct:[id number] Age/Sex: 24 / F ADM Date: 03/08/25 Loc: US Attending Dr: Mackenzie Rodriguez D.O. Ordering Physician: Mackenzie Rodriguez D.O. Date of Service: 03/08/25 Procedure(s): US OB cervical length Accession Number(s): [id number] cc: LUIS SEE ; Mackenzie Rodriguez D.O. [address] [address] Patient Name: VIMAL FUNES MRN: [id number] date: 2000 Sex: F Assigned Patient Location: US Current Patient Location: US Accession/Order Number: [id number] Exam Date: 03/08/2025 20:31 Report Date: 03/08/2025 [...] Knapp M.D. 03/08/2025 8:36 PM Dictation Location: [facility] Electronically authenticated by: [id number] Y Date: 03/08/2025 20:36 Dictated By: Shivam Knapp D.O. Signed By: 03/08/252037 DD/ 35 TD/TT: House Mover Supervisor: Procedure Note Radiology, Radiologist, MD - 03/08/2025 [place] [address] Ultrasound Report Signed Patient: VIMAL FUNES MMR#: [id number] : 2000Acct:[id number] Age/Sex: 24 / FADM Date: 03/08/25 Loc: US Attending Dr: Mackenzie Rodriguez D.O. Ordering Physician: Mackenzie Rodriguez D.O. Date of Service: 03/08/25 Procedure(s): US OB cervical length Accession Number(s): [id number] cc: LUIS SEE ; Mackenzie Rodriguez D.O. The [place] [place] [id number] Patient Name: VIMAL FUNES MRN: [id number] date: 2000 Sex: F Assigned Patient Location: US Current Patient Location: US Accession/Order Number: [id number] Exam Date: 03/08/2025 20:31 Report Date: 03/08/2025 [...] Knapp M.D. 03/08/2025 8:36 PM Dictation Location: [place] [address] Electronically authenticated by: [id number] Y Date: 0:36 Dictated By: Shivam Knapp D.O. Signed By:03/08/252037 DD/ 35 TD/TT: House Mover Supervisor: us Mackenzie Rodriguez DO [facility] Final Result * US OB ANATOMY (03/08/2025 8:36 PM EDT) Anatomical Region Laterality Modality Other 03/08/2025 8:36 PM EDT Narrative 03/08/2025 8:38 [place] [address] Ultrasound Report Signed Patient: VIMAL FUNES MR#: [id number] : 2000 Acct:[id number] Age/Sex: 24 / F ADM Date: 03/08/25 Loc: US Attending Dr: Mackenzie Rodriguez D.O. Ordering Physician: Mackenzie Rodriguez D.O. Date of Service: 03/08/25 Procedure(s): US OB anatomy Accession Number(s): [id number] cc: LUIS SEE Corey D.O. [place] [id number] Patient Name: VIMAL FUNES MRN: [id number] date: 2000 Sex: F Assigned Patient Location: US Current Patient Location: US Accession/Order Number: [id number] Exam Date: 03/08/2025 20:31 Report Date: 03/08/2025 [...] Knapp M.D. 03/08/2025 8:36 PM [facility]ictation [facility] Electron[facility] authenticated by: [id number] Y Date: 03/08/2025 20:36 Dictated By: Shivam Knapp D.O. Signed By: 03/08/252037 DD/ 35 TD/TT: House Mover Supervisor: Procedure Note Radiology, Radiologist, MD - 03/08/2025 [place] [address] Ultrasound Report Signed Patient: VIMAL FUNES MMR#: [id number] : 2000Acct:[id number] Age/Sex: 24 / FADM Date: 03/08/25 Loc: US Attending Dr: Mackenzie Rodriguez D.O. Ordering Physician: Mackenzie Rodriguez D.O. Date of Service: 03/08/25 Procedure(s): US OB anatomy Accession Number(s): [id number] cc: LUIS SEE ; Mackenzie Rodriguez D.O. [place] [id number] Patient Name: VIMAL FUNES MRN: [id number] date: 2000 Sex: F Assigned Patient Location: US Current Patient Location: US Accession/Order Number: [id number] Exam Date: 03/08/2025 20:31 Report Date: 03/08/2025 [...] Knapp M.D. 03/08/2025 8:36 PM Dictation Location: [place] [address] Electronically authenticated by: [id number] Y Date: 0:36 Dictated By: Shivam Knapp D.O. Signed By:03/08/252037 DD/ 35 TD/TT: House Mover Supervisor: Mackenzie Rodriguez DO [facility] Final Result from Last 3 Months Insurance BS [employer] Care Teams Nailer Operator Relationship Specialty Start Date End Date Unallocated, Noms Provider, [address] [place] [address] PCP - General Family Medicine 08/03/24
--- OUTSIDE RECORDS SUMMARY | 2025-06-05 17:03 | XMS_ITS | Encounter Summary ---
Author Organization [facility] tem Address [id number] [address] [place] [address] Care Team Providers Care Bottom Liner Name Role Phone Unavailable Primary Care Provider Unavailabl e Encounter Details Date Type Department Care Team ([facility] Contact Info) Description 05/31/2025 Orders Only Maternal- Medicine at [facility] [address] [place] [address] Ref Prov, [place] [address] Social History Tobacco Use Types Packs/Day Years [...] Department Care Team (Late Contact Info) Description 06/11/2025 8:00 AM EDT Appointment [facility] US Imaging [address] [place] [address] 06/18/2025 3:30 PM EDT Appointment [facility] US Imaging [address] [place] [address] 06/24/2025 2:15 PM EDT Appointment Maternal Medicine [place] [address] [place] [address] documented as of this encounter Visit Diagnoses Not on filedocumented in this encounter
--- OUTSIDE RECORDS SUMMARY | 2025-06-05 17:03 | XMS_ITS | Encounter Summary ---
Author Organization [facility] Address [address] [place] [address] Care Team Providers Care Forest Resources Professor Name Role Phone Unallocated, Noms Provider Primary Care Provi krissy Encounter Details Date Type Department Care Team (Late st Contact Info) Description 05/28/2025 Bamboo flowsheet ARJUN PANG [address] [place] [address] Jose Rodriguez DO [facility] [place] [address] Josué Moratyaa, [facility]11 Social History Tobacco Use [...] 3:00 PM EDT Routine NOMMay PANG [address] [place] [address] Rossana Ramos PA [address] [place] [address] [place] [address] documented as of this encounter Visit Diagnoses Not on filedocumented in this encounter Care Teams Forest Resources Professor Relationship Specialty Start Date End Date Unallocated, Noms Provider, [place] [address] PCP - General Family Medicine 08/03/24 documented as of this encounter
--- OUTSIDE RECORDS SUMMARY | 2025-06-05 17:03 | XMS_ITS | Clinical Summary ---
Author Organization [facility] tem Address [id number] [address] [place] [address] Care Team Providers Care Fourth Grade Teacher Name Role Phone Unavailable Primary Care Provider [...] tablet (100 mg total) before bedtime. Active Active Problems Problem Noted Date Diagnosed Date Poor growth affecting management of mother in third trimester 06/04/2025 Estimated Date of Delivery Comme nts Yes 07/22/2025 Based on last me nstrual period of 10/15/2024 Encounters Date Type Department Care Team Description 06/05/2025 Telephone Maternal- Medicine at [facility] [address] [place] [address] 06/04/2025 2:00 PM EDT Telemedicine Maternal- Medicine at [facility] [address] [place] [address] Chris Martin MD Poor growth affecting management of mother in third trimester, single or unspecified fetus (Primary Dx) 06/04/2025 12:41 PM EDT - 06/04/2025 11:59 PM EDT Hospital Encounter [facility] - Ultrasound [address] [place] [address] Mackenzie Rodriguez DO Screening, , for anatomic survey Discharge Disposition: Home 06/04/2025 Orders Only Maternal- Medicine at [facility] [address] [place] [address] Marii Yoo RN Poor growth affecting management of mother in third trimester, single or unspecified fetus (Primary Dx); Gestational diabetes mellitus (GDM) in third trimester, gestational diabetes method of control unspecified 06/04/2025 Travel 05/31/2025 Orders Only Maternal- Medicine at [facility] [address] [place] [address] Ref Prov, Not In System 05/31/2025 Abstract Maternal- Medicine at [facility] [address] [place] [address] External, Scanning Provider 05/28/2025 Telephone Maternal- Medicine at [facility] [address] [place] [address] Chante Muse LD 05/21/2025 Telephone Maternal- Medicine at [facility] [address] [place] [address] Chante Muse LD 05/13/2025 1:30 PM EDT Support Visit Maternal- Medicine at [facility] [address] [place] [address] Marjorie Rico RN Fischer, Kelli, ALEC Gestational diabetes mellitus (GDM) in third trimester, gestational diabetes method of control unspecified 05/13/2025 Travel 05/10/2025 Abstract Maternal- Medicine at [facility] [address] [place] [address] External, Scanning Provider from Last 3 Months [...] Info) Description 06/11/2025 8:00 AM EDT Appointment [facility] US Imaging [address] [place] [address] 06/18/2025 3:30 PM EDT Appointment [facility] US Imaging [address] [place] [address] 06/24/2025 2:15 PM EDT Appointment Maternal Medicine [place] [address] [place] [address] Health Maintenance Due Date Last Done Comments Chlamydia Screening 2001 Depression Screening 2013 Tobacco Screening 2013 Adult BMI Screening 2019 DTaP,Tdap and Td Vaccines (7 - Td or Tdap) 05/01/2024 05/01/2014, 06/01/2006, 05/19/2005, Additional history exists Influenza Vaccine 05/27/2025 08/28/2003, 07/26/2003 Pap Smear 02/21/2028 02/20/2025 Medical Devices Not on file Procedures Procedure Name Priority Date/Time Associated Diagnosis Comments US [facility] COMPREHENSIVE ANATOMIC SURVEY Routine 06/04/2025 3:06 PM EDT Screening, , for anatomic survey GLUCOSE RANDOM OR FASTING Routine 05/13/2025 Gestational diabetes mellitus (GDM) in third trimester, gestational diabetes method of control unspecified GLUCOSE TOLERANCE, 3 HOURS Routine 05/04/2025 GLUCOSE TOLERANCE, FASTING Routine 05/04/2025 GLUCOSE TOLERANCE, 1 HOUR Routine 05/04/2025 SECOND HOUR GLUCOSE TOLERANCE 100 GM LOAD Routine 05/04/2025 GLU 1H POST 50G LOAD Routine 04/27/2025 from Last 3 Months Results * US MFM COMPREHENSIVE ANATOMIC SURVEY (06/04/2025 3:06 PM EDT) Anatomical Region Laterality Modality OB-HUMAN RESOURCES COMPENSATION ANALYST Ultrasound 06/04/2025 1:03 PM EDT Narrative 06/04/2025 4:20 PM EDT NAME: JERICA CELIS : 2000 SEX: F Accession Number: [id number] ORDERING PHYSICIAN: CHRIS MARTIN REFERRING PHYSICIAN: MACKENZIE RODRIGUEZ Coding ----- --------- Procedures [id number]: Ultrasound, uterus, real time with image documentation, and maternal evaluation plus detailed anatomic examination, transabdominal approach;single or first gestation 99973: Doppler velocimetry, ; umbilical artery Indication ----- [...] EFW (oz) 4 oz EFW by: Hadlock ([id number]) Extended Tibia 49.0 mm 29w 3d <1% Khanh Foot 56.8 mm <1% Ch[employer] Circuit Board Drafter 4.6 mm CM 6.2 mm 19% Nicolaides [...] bone. Maxilla. Mandible. Orbits. Heart/Thorax: LVOT view. 2-ilkyxv-mafrcbq view. Situs. Ductal arch view. Cardiac position. [...] CELIS : 2000 SEX: F Accession Number: [id number] ORDERING PHYSICIAN: CHRIS MARTIN REFERRING PHYSICIAN: MACKENZIE RODRIGUEZ Coding ----- --------- Procedures 77702: Ultrasound, uterus, real time with imagedocumentation, and maternal evaluation plus detailed anatomic examination, transabdominalapproach;single or first gestation 06810: Doppler velocimetry, ; umbilical artery Indication ----- [...] Cerebellum tr 41.3 mm 32w 6d 22% Den AC 261.7 mm 30w 2d 1% Hadlock Femur 55.6 mm 29w 2d <1% Hadlock Humerus 51.8 mm 30w 1d 3% Khanh HC / AC 1.07 EFW 1,487 g <1% Hadlock EFW (lb) 3 lb EFW (oz) 4 oz EFW by: Hadlock ([id number]) Extended Tibia 49.0 mm 29w 3d <1% Khanh Foot 56.8 mm <1% [employer] Drafter 4.6 mm CM 6.2 mm 19% Nicolaides [...] bone. Maxilla. Mandible. Orbits. Heart/Thorax: LVOT view. 2-wuzwxq-spquoyy view. Situs. Ductal arch view.Cardiac position. Cardiac [...] can follow up with thepatient as necessary. Chris Martin MD [facility] US ORDERABLES Final Resul t * Glucose random or fasting- POCT (05/13/2025) External Glucose Fasting Or Random (Fbs) 80 MANUALLY TRANSCRIBED RESULTS Blood Venous blood / Unknown 05/13/2025 us Wendy Miranda MD LAB BLOOD ORDERABLES Final Resul t Performing Organization Address [facility] Co de Phone Number MANUALLY TRANSCRIBED RESULTS * 2nd hr Glucose Tolerance 100 gm load (05/04/2025) Glucose Tolerance Test 2 Hour 186 MANUALLY TRANSCRIBED RESULTS Blood Venous blood / Unknown us Not In System Ref Prov LAB BLOOD ORDERABLES Kayli l Result Performing Organization Address City/[facility] Co de Phone Number MANUALLY TRANSCRIBED RESULTS * Glucose tolerance, 1 hour (05/04/2025) Glucose Tolerance Test 1 Hour 234 MANUALLY TRANSCRIBED RESULTS Blood Venous blood / Unknown us Not In System Ref Prov LAB BLOOD ORDERABLES Kayli l Result Performing Organization Address [facility] Co de Phone Number MANUALLY TRANSCRIBED RESULTS [...] ORDERABLES Kayli l Result Performing Organization Address City/State/[facility] Co de Phone Number MANUALLY TRANSCRIBED RESULTS * Glucose 1h post 50g load (04/27/2025) Glucose, 1 hr PP 50GM dose 171 MANUALLY TRANSCRIBED RESULTS Blood Venous blood / Unknown us Not In System Ref Prov LAB BLOOD ORDERABLES Kayli l Result MANUALLY TRANSCRIBED RESULTS from Last 3 Months Insurance [facility] [employer]
--- OUTSIDE RECORDS SUMMARY | 2025-06-05 17:03 | XMS_ITS | Encounter Summary ---
Author Organization [facility] Address [address] [place] [address] Care Team Providers Care Door Attendant Name Role Phone Unallocated, Noms Provider Primary Care Provi krissy Encounter Details Date Type Department Care Team (Late st Contact Info) Description 08/10/2024 Abstract ARJUN PANG [address] [facility] [place] [address] Jose Rodriguez DO [address] [facility] [address] Josué Morataya, [facility] [...] 3:00 PM EDT Routine ARJUN PANG [address] [place] [address] Rossana Ramos PA [address] [facility] [address] [place], [facility]11 documented as of this encounter Visit Diagnoses Not on filedocumented in this encounter Care Teams Door Attendant Relationship Specialty Start Date End Date Unallocated, Noms Provider, [place] [address] PCP - General Family Medicine 08/03/24 documented as of this encounter
--- OUTSIDE RECORDS SUMMARY | 2025-06-05 17:03 | XMS_ITS | Encounter Summary ---
Author Organization [facility] Address [address] [place] [address] Care Team Providers Care Electric Shovel Operator Name Role Phone Unallocated, Noms Provider Primary Care Provi krissy Encounter Details Date Type Department Care Team (Late Contact Info) Description 03/28/2025 Abstract NOMMay PANG [address] [facility] [place] [address] Jose Rodriguez DO [address] [facility] [address] Josué Morataya, [facility]11 Social History Tobacco Use Types [...] PANG [address] [facility] [place] [address] Rossana Ramos PA [address] [place] [address] [place] [address] documented as of this encounter Visit Diagnoses Not on filedocumented in this encounter Care Teams Electric Shovel Operator Relationship Specialty Start Date End Date Unallocated, Noms Provider, [address] [place] [address] PCP - General Family Medicine 08/03/24 documented as of this encounter
--- OUTSIDE RECORDS SUMMARY | 2025-06-05 17:03 | XMS_ITS | Encounter Summary ---
Author Organization [facility] Address [address] [place] [address] Care Team Providers Care Diesel Motor Mechanic Name Role Phone Unallocated, Noms Provider Primary Care Provi krissy Encounter Details Date Type Department Care Team (Late Contact Info) Description 05/22/2025 Bamboo flowsheet ARJUN PANG [address] [place] [address] Jose Rodriguez DO [facility] [address] [address] Josué Morataya, [facility]11 Social History Tobacco Use Types Packs/Day [...] 3:00 PM EDT Routine NOMMay PANG [address] [place] [address] Rossana Ramos PA [address] [place] [address] [place] [address] documented as of this encounter Visit Diagnoses Not on filedocumented in this encounter Care Teams Diesel Motor Mechanic Relationship Specialty Start Date End Date Unallocated, Noms Provider, [place] [address] PCP - General Family Medicine 08/03/24 documented as of this encounter
--- OUTSIDE RECORDS SUMMARY | 2025-06-05 17:03 | XMS_ITS | Encounter Summary ---
Author Organization [facility] Address [address] [place] [address] Care Team Providers Care Institutional Aide Name Role Phone Vaishali Zapata MD Primary Care Provider Bipin cheng Unallocated, Noms Provider Primary Care Provi krissy Encounter Details Date Type Department Care Team (Late Contact Info) Description 08/02/2024 Abstract ARJUN PANG [address] [facility] [place] [address] Jose Rodriguez DO [address] [facility] [address] Josué Morataya, [facility] [...] 3:00 PM EDT Routine NOMMay PANG [address] [facility] [place] [address] Rossana Ramos PA [address] [facility] [place] [address] documented as of this encounter Visit Diagnoses Not on filedocumented in this encounter Care Teams Institutional Aide Relationship Specialty Start Date End Date Vaishali Zapata MD [address] [place] [address] PCP - General Family Medicine 02/04/23 08/02/24 Unallocated, Noms Provider, [address] [place] [address] PCP - General Family Medicine 08/03/24 documented as of this encounter
--- OUTSIDE RECORDS SUMMARY | 2025-06-05 17:03 | XMS_ITS | Encounter Summary ---
Author Organization [facility] Address [address] [place] [address] Care Team Providers Care Crystal Attacher Name Role Phone Unallocated, Noms Provider Primary Care Provi krissy Encounter Details Date Type Department Care Team (Late st Contact Info) Description 06/04/2025 External Result Encounter [facility]ia PANG [address] [place] [address] Mackenzie Rodriguez DO [address], [facility]11 Social History Tobacco Use [...] PM EDT Routine N[facility]S Rafia PANG [address] [place] [address] Rossana Ramos PA [address] [place] [address] [place] [address] documented as of this encounter Procedures Procedure Name Priority Date/Time Associated Diagnosis Comments US OB 14+ WEEKS ANATOMY SCAN 06/04/2025 4:20 PM EDT documented in this encounter Results * US OB 14+ weeks anatomy scan (06/04/2025 4:20 PM EDT) Anatomical Region Laterality Modality Body Ultrasound 06/04/2025 4:20 PM EDT Narrative 06/04/2025 4:20 PM EDT THIS EXAM WAS PERFORMED AT [facility] NAME: JERICA CELIS : 2000 SEX: F Accession Number: [id number] ORDERING PHYSICIAN: CHRIS MARTIN REFERRING PHYSICIAN: MACKENZIE RODRIGUEZ Coding ----- --------- Procedures [id number]: Ultrasound, uterus, real time with image documentation, and maternal evaluation plus detailed anatomic examination, transabdominal approach;single or first gestation 43407: Doppler velocimetry, ; umbilical artery Indication ----- [...] EFW (oz) 4 oz EFW by: Hadlock ([id number]) Extended Tibia 49.0 mm 29w 3d <1% Khanh Foot 56.8 mm <1% Chitty Ball Maker 4.6 mm CM 6.2 mm 19% Nicolaides [...] bone. Maxilla. Mandible. Orbits. Heart/Thorax: LVOT view. 8-henlex-njzzhrh view. Situs. Ductal arch view. Cardiac position. [...] 4.2 cm. Recommendations ----- --------- Please see [facility] documentation from today. Subsequent follow up or other follow up as clinically determined by primary OB provider unless otherwise specified by [facility]. Results forwarded to ordering provider so they can follow up with the patient as necessary. The copy-to physician of this order is MACKENZIE Victoria The ordering physician of this order is CHRIS Patterson Procedure Note Radiology, Radiologist, MD - 06/04/2025 THIS EXAM WAS PERFORMED AT [facility] NAME: JERICA CELIS : 2000 SEX: F Accession Number: [id number] ORDERING PHYSICIAN: CHRIS MARTIN REFERRING PHYSICIAN: MACKENZIE RODRIGUEZ Coding ----- --------- Procedures [id number]: Ultrasound, uterus, real time with imagedocumentation, and maternal evaluation plus detailed anatomic examination, transabdominalapproach;single or first gestation 68783: Doppler velocimetry, ; umbilical artery Indication ----- [...] EFW (oz) 4 oz EFW by: Hadlock ([id number]) Extended Tibia 49.0 mm 29w 3d <1% Khanh Foot 56.8 mm <1% Chitty Ball Maker 4.6 mm CM 6.2 mm 19% Nicolaides [...] bone. Maxilla. Mandible. Orbits. Heart/Thorax: LVOT view. 8-wmiuzf-hjbydom view. Situs. Ductal arch view.Cardiac position. Cardiac [...] 4.2 cm. Recommendations ----- --------- Please see [facility] documentation from today. Subsequent follow up or other follow up as clinically determined byprimary OB provider unless otherwise specified by MFM. Results forwarded to ordering provider so they can follow up with thepatient as necessary. The copy-to physician of this order is MACKENZIE Victoria The ordering physician of this order is CHRIS Patterson us Mackenzie Rodriguez DO IMG OB US PROCEDURES Final Resul t documented in this encounter Visit Diagnoses Not on filedocumented in this encounter Care Teams Crystal Attacher Relationship Specialty Start Date End Date Unallocated, Noms Provider, [address] [place] [address] PCP - General Family Medicine 08/03/24 documented as of this encounter
--- OUTSIDE RECORDS SUMMARY | 2025-06-05 17:03 | XMS_ITS | Encounter Summary ---
Author Organization [facility] tem Address [id number] [address] [place] [address] Care Team Providers Care Machine Shop Worker Name Role Phone Unavailable Primary Care Provider Unavailabl e Encounter Details Date Type Department Care Team (Late Contact Info) Description 05/31/2025 Abstract Maternal- Medicine at [facility] [address] [place] [address] External, Scanning Provider Social History Tobacco Use [...] Info) Description 06/11/2025 8:00 AM EDT Appointment [facility] US Imaging [address] [place] [address] 06/18/2025 3:30 PM EDT Appointment [facility] US Imaging [address] [place] [address] 06/24/2025 2:15 PM EDT Appointment Maternal Medicine [place] [place] [address] documented as of this encounter [...] Kayli l Result MANUALLY TRANSCRIBED RESULTS * HIV 1&2 AB/AG Screen (P24 AG) (01/05/2025) HIV 1&2 AB/AG Non Reactive MAN UALLY TRANSCRIBED RESULTS Blood Venous blood / Unknown us Not In System Ref Prov LAB BLOOD ORDERABLES Kayli l Result MANUALLY TRANSCRIBED RESULTS * Type and screen [...] ORDERABLES Kayli l Result Performing Organization Address [facility] Co de Phone Number MANUALLY TRANSCRIBED [...] ORDERABLES Final Re sult Performing Organization Address [facility] de Phone Number MANUALLY TRANSCRIBED RESULTS * CBC without diff (01/05/2025) Hemoglobin 14.7 MANUALLY TRANSCRIBED RESULTS Hematocrit 42.5 MANUALLY TRANSCRIBED RESULTS Rbc Mcv (Fl) By Automated Count 91.4 MANUALLY TRANSCRIBED RESULTS Blood Venous blood / Unknown us Not In System Ref Prov LAB BLOOD ORDERABLES Kayli l Result Performing Organization Address [facility] Co de Phone Number MANUALLY TRANSCRIBED RESULTS documented in this encounter Visit Diagnoses Not on filedocumented in this encounter
--- OUTSIDE RECORDS SUMMARY | 2025-06-05 17:03 | XMS_ITS | Encounter Summary ---
Author Organization [facility] Address [address] [place] [address] Care Team Providers Care Gun Perforator Name Role Phone Unallocated, Noms Provider Primary Care Provi krissy Encounter Details Date Type Department Care Team (Late st Contact Info) Description 05/07/2025 Results Follow-Up ARJUN Morataya [facility] [address] [facility] [address] [address] Glenna Butler LPN [address] [place] [address] ALL CBC WITH AUTO DIFF, [...] PM EDT Routine ARJUN Morataya OBCHICHO [address] [facility] [place] [address] Rossana Ramos PA [address] [facility] [place] [address] documented as of this encounter Visit Diagnoses Not on filedocumented in this encounter Care Teams Gun Perforator Relationship Specialty Start Date End Date Unallocated, Arjun Vo MD [address] [place] [address] PCP - General Family Medicine 08/03/24 documented as of this encounter
--- OUTSIDE RECORDS SUMMARY | 2025-06-05 17:03 | XMS_ITS | Encounter Summary ---
Author Organization [facility] tem Address [id number] [address] [place] [address] Care Team Providers Care Statistical Programmer Name Role Phone Unavailable Primary Care Provider Unavailabl e Encounter Details Date Type Department Care Team (Late st Contact Info) Description 05/28/2025 Telephone Maternal- Medicine at [facility] [address] [facility] [place] [id number] Chante Muse LD [address] [place] [address] Social History Tobacco Use Types Packs/Day Years [...] changing her evening snack. Will send a A la Mobile message. documented in this encounter Plan of Treatment Upcoming Encounters Date Type Department Care Team (Late st Contact Info) Description 06/11/2025 8:00 AM EDT Appointment [facility] [address] [place] [address] 06/18/2025 3:30 PM EDT Appointment [facility] [address] [place] [address] 06/24/2025 2:15 PM EDT Appointment Maternal Medicine [facility] [address] [facility] [address] [place] [address] documented as of this encounter Visit Diagnoses Not on filedocumented in this encounter
--- OUTSIDE RECORDS SUMMARY | 2025-06-05 17:03 | XMS_ITS | Encounter Summary ---
Author Organization [facility] Address [address] [place] [address] Care Team Providers Care Rn Clinical Trials Name Role Phone Vaishali Zapata MD Primary Care Provider Bipin cheng Unallocated, Noms Provider Primary Care Provi krissy Encounter Details Date Type Department Care Team (Late st Contact Info) Description 06/28/2024 Abstract [facility] P[facility] [address] [place] [address] Jose Rodriguez DO [address] Josué Morataya, [id number] Social History Tobacco Use Types Packs/Day Years [...] 3:00 PM EDT Routine ARJUN PANG [address] [place] [address] Rossana Ramos PA [address] [place] [address] documented as of this encounter Visit Diagnoses Not on filedocumented in this encounter Care Teams Rn Clinical Trials Relationship Specialty Start Date End Date Vaishali Zapata MD [address] [place] [address] PCP - General Family Medicine 02/04/23 08/02/24 Unallocated, Noms Provider, [address] [place] [address] PCP - General Family Medicine 08/03/24 documented as of this encounter
--- OUTSIDE RECORDS SUMMARY | 2025-06-05 17:03 | XMS_ITS | Encounter Summary ---
Author Organization [facility] Address [address] [place] [address] Care Team Providers Care Prototype Assembler Electronics Name Role Phone Unallocated, Noms Provider Primary Care Provi krissy Encounter Details Date Type Department Care Team (Late st Contact Info) Description 08/10/2024 Abstract ARJUN PANG [address] [place] [address] Jose Rodriguez DO [address] [facility] [address] Josué Morataya, [facility]11 Social History Tobacco Use Types Packs/Day [...] [address] [place] [address] Rossana Ramos PA [address] [facility] [address] [place], [facility]11 documented as of this encounter Visit Diagnoses Not on filedocumented in this encounter Care Teams Prototype Assembler Electronics Relationship Specialty Start Date End Date Unallocated, Noms Provider, [place] [address] PCP - General Family Medicine 08/03/24 documented as of this encounter
--- OUTSIDE RECORDS SUMMARY | 2025-06-05 17:03 | XMS_ITS | Patient Health Record ---
Author Organization The [facility] in [place] Address [address] [place] [address] Care Team Providers Care Resident Care Provider Name Role Phone Jennifer See Primary Care [...] 0.90 - 0.99 Immune >0.99 Performed at: [address] [id number] Revenue Research Analyst: Andrew Harris PhD, Phone: [phone] Performing Lab: see note - [facility] LB Type and Screen Reviewed date:07/23/2024 08:22:00 AM Interpretation: Performing Lab: Notes/Report: [facility] , Blood Type A Positive Antibody Screen NEGATIVE HIV Ab/p24 Ag with Reflex Reviewed date:07/23/2024 08:22:00 AM Interpretation: Performing Lab: Notes/Report: [facility] , HIV Ab/p24 Ag Screen Non Reactive Non Reactive HIV-1/HIV-2 antibodies and HIV-1 p24 antigen were NOT detected. There is no laboratory evidence of HIV infection. HIV Negative Performed at: [address] [id number] Revenue Research Analyst: Andrew Harris PhD, Phone: [phone] Performing Lab: see note - [facility] LB [...] utilized, such as Treponema pallidum (Syphilis) Screening [place] (058038) or Rapid Plasma Reagin (RPR) Test With Reflex to Quantitative RPR and Confirmatory Treponema pallidum Antibodies (992329). Performed at: [address] [id number] Revenue Research Analyst: Andrew Harris PhD, Phone: [phone] Performing Lab: see note [facility] HCV Antibody RFX to Quant PC R Reviewed date:07/23/2024 08:22:00 AM Interpretation: Performing Lab: Notes/Report: [facility] , HCV Ab Non Reactive Non Reactive Interpretation: Comment . Not infected with HCV unless early or acute infection is suspected (which may be delayed in an immunocompromised individual), or other evidence exists to indicate HCV infection. Performing Lab: see note [facility] HBsAg Screen Reviewed date:07/23/2024 08:22:00 AM Interpretation: Performing Lab: Notes/Report: [facility] , HBsAg Screen Negative Negative Performed at: [address] [id number] Revenue Research Analyst: Andrew Harris PhD, Phone: [phone] Performing Lab: see note [facility] LB Urine Culture, Routine Reviewed date:07/23/2024 08:22:00 AM Interpretation: Performing Lab: Notes/Report: [facility] , Urine Culture, Routine See Below For Report Urine Culture, Routine Urine Culture, Routine Mixed urogenital tami Urine Culture, Routine Urine Culture, Routine 10,000-25,000 col nan forming units per mL Urine Culture, Routine Urine Culture, Routine Performed at: CB - [facility] [place] Urine Culture, Routine Urine Culture, Routine [address] [place], [place] [id number] Urine Culture, Routine Urine Culture, Routine Revenue Research Analyst: Riky Harris PhD, Phone: [phone] Urine Culture, Routine Performing Lab: see note LC - [facility] LB SEE REPORT - [place] Id information not found for OBX-specific manager golf legend CBC AUTO DIFF Reviewed date:08/03/2024 08:30:13 AM Interpretation: Performing Lab: Notes/Report: [facility] , White Blood Count 11.1 4.0-11.0 [...] 3/uL Performing Lab: see note ML - [facility] LB PREG QUANT HCG Reviewed date:08/03/2024 08:30:13 AM Interpretation: Performing Lab: Notes/Report: [facility] , HCG Quantitative 1656 5-50 0.2-1 WEEK 50-500 1-2 WEEKS 100-5,000 2-3 WEEKS 500-10,000 3-4 WEEKS 1,000-50,000 4-5 WEEKS 10,000-100,000 5-6 WEEKS 15,000-200,000 6-8 WEEKS 10,000-100,000 2-3 MONTHS Performing Lab: see note - [facility] LB PROF 14(COMP METB) Reviewed date:08/03/2024 08:30:13 AM Interpretation: Performing Lab: Notes/Report: [facility] , Sodium 140 136-145 mmol/L Potassium [...] Performing Lab: see note ML - The [facility] OB transvaginal Reviewed date:08/03/2024 08:30:13 AM Interpretation: Performing Lab: Notes/Report: Source Facility: [facility] [place] [address] [place] [address] Ultrasound Report Signed Patient: VIMAL FUNES MR#: [id number] : 2000 Acct:[id number] Age/Sex: 24 / F ADM Date: 08/02/24 Loc: ER Attending Dr: Ordering Physician: Kishan Cosby Date of Service: 08/02/24 Procedure(s): US OB transvaginal Accession Number(s): [id number] cc: JENNIFER SEE ; Kishan Cosby [place] [id number] Patient Name: VIMAL FUNES MRN: [facility]:[id number] date: 2000 Sex: F Assigned Patient Location: ER Current Patient Location: ER Accession/Order Number: [id number] Exam Date: 08/02/2024 19:17 Report Date: 08/02/2024 [...] M.D. Signed By: 08/02/242126 DD/ 23 TD/TT: [employer] Waterproof[employer] Machine Operator: [place] [address] Ultrasound Report Signed Patient: VIMAL FUNES MR#: [id number] : 2000 Acct:[id number] Age/Sex: 24 / F ADM Date: 08/02/24 Loc: ER Attending Dr: Ordering Physician: Kishan Cosby Date of Service: 08/02/24 Procedure(s): US OB transvaginal Accession Number(s): [id number] cc: JENNIFER SEE ; Kishan Marker [place] [address] Patient Name: VIMAL FUNES MRN: [id number] date: 2000 Sex: F Assigned Patient Location: ER Current Patient Location: ER Accession/Order Number: [id number] Exam Date: 19:17 Report Date: 08/02/2024 21:24 [...] M.D. Signed By: 08/02/242126 DD/ 23 TD/TT: Primer Waterproofing Machine Operator: CBC AUTO DIFF Reviewed date:08/10/2024 08:58:56 AM Interpretation: Performing Lab: Notes/Report: [facility] , White Blood Count 8.9 4.0-11.0 [...] 3/uL Performing Lab: see note ML - [facility] LB PREG QUANT HCG Reviewed date:08/10/2024 08:58:56 AM Interpretation: Performing Lab: Notes/Report: [facility] , [facility] Quantitative 240 5-50 0.2-1 WEEK 50-500 1-2 WEEKS 100-5,000 2-3 WEEKS 500-10,000 3-4 WEEKS 1,000-50,000 4-5 WEEKS 10,000-100,000 5-6 WEEKS 15,000-200,000 6-8 WEEKS 10,000-100,000 2-3 MONTHS Performing Lab: see note - [facility] US OB transvaginal Reviewed date:08/10/2024 08:58:56 AM Interpretation: Performing Lab: Notes/Report: Source Facility: [facility] [place] [address] [place] [address] Ultrasound Report Signed Patient: VIMAL FUNES MR#: [id number] : 2000 Acct:[id number] Age/Sex: 24 / F ADM Date: 08/10/24 Loc: SURGOUT Attending Dr: Mackenzie Rodriguez D.O. Ordering Physician: Mackenzie Rodriguez D.O. Date of Service: 08/10/24 Procedure(s): US OB transvaginal Accession Number(s): [id number] cc: JENNIFER SEE ; Mackenzie Rodriguez D.O. The [address] [address] Patient Name: VIMAL FUNES MRN: [id number] date: 2000 Sex: F Assigned Patient Location: SURGOUT [facility] Accession/Order Number: [id number] Exam Date: 08/10/2024 08:10 Report Date: 08/10/2024 [...] Herrera M.D. Signed By: 08/10/2447 DD/ TD/TT: [employer] Waterproofing Machine Operator: [place] [address] Ultrasound Report Signed Patient: VIMAL FUNES MR#: [id number] : 2000 Acct:[id number] Age/Sex: 24 / F ADM Date: 08/10/24 Loc: SURGOUT Attending Dr: Mackenzie Rodriguez D.O. Ordering Physician: Mackenzie Rodriguez D.O. Date of Service: 08/10/24 Procedure(s): US OB transvaginal Accession Number(s): [id number] cc: JENNIFER SEE ; Mackenzie Rodriguez D.O. The [address] [address] Patient Name: VIMAL FUNES MRN: [id number] date: 2000 Sex: F Assigned Patient Location: SURGOUT [facility] Accession/Order Number: [id number] Exam Date: 08:10 Report Date: 08/10/2024 08:44 [...] Herrera M.D. Signed By: 08/10/2447 DD/ TD/TT: [employer] Waterproof[employer] Machine Operator: PREG QUANT HCG Reviewed date:11/20/2024 01:38:35 PM Interpretation: Performing Lab: Notes/Report: [facility] , HCG Quantitative 6254 5-50 0.2-1 WEEK 50-500 1-2 WEEKS 100-5,000 2-3 WEEKS 500-10,000 3-4 WEEKS 1,000-50,000 4-5 WEEKS 10,000-100,000 5-6 WEEKS 15,000-200,000 6-8 WEEKS 10,000-100,000 2-3 MONTHS Performing Lab: see note ML - [facility] LB PREG QUANT HCG Reviewed date:11/22/2024 08:59:16 AM Interpretation: Performing Lab: Notes/Report: [facility] , HCG Quantitative 79686 5-50 0.2-1 WEEK 50-500 1-2 WEEKS 100-5,000 2-3 WEEKS 500-10,000 3-4 WEEKS 1,000-50,000 4-5 WEEKS 10,000-100,000 5-6 WEEKS 15,000-200,000 6-8 WEEKS 10,000-100,000 2-3 MONTHS Performing Lab: see note ML - [facility] LB RUBELLA AB IGG Reviewed date:01/07/2025 01:05:16 PM Interpretation: Performing Lab: Notes/Report: [facility] , Rubella Antibodies, IgG 1.57 Immune > 0.99 index Non-immune <0.90 Equivocal 0.90 - 0.99 Immune >0.99 Performed at: [facility] [address] [id number] Revenue Research Analyst: Andrew Harris PhD, Phone: [phone] Performing Lab: see note [facility] HIV Ab/p24 Ag with Reflex Reviewed date:01/07/2025 01:05:16 PM Interpretation: Performing Lab: Notes/Report: [facility] , HIV Ab/p24 Ag Screen Non Reactive Non Reactive HIV-1/HIV-2 antibodies and HIV-1 p24 antigen were NOT detected. There is no laboratory evidence of HIV infection. HIV Negative Performed at: [facility] [address] [id number] Revenue Research Analyst: Andrew Harris PhD, Phone: [phone] Performing Lab: see note [facility] HCV Antibody RFX to Quant PC R Reviewed date:01/07/2025 01:05:16 PM Interpretation: Performing Lab: Notes/Report: [facility] , HCV Ab Non Reactive Non Reactive Interpretation: Comment . Not infected with HCV unless early or acute infection is suspected (which may be delayed in an immunocompromised individual), or other evidence exists to indicate HCV infection. Performed at: [facility] [address] [place] [id number] Revenue Research Analyst: Andrew Harris PhD, Phone: [phone] Performing Lab: see note [facility] LB Urine Culture, Routine Reviewed date:01/07/2025 01:05:16 PM Interpretation: Performing Lab: Notes/Report: [facility] , Urine Culture, Routine See Below For Report Urine Culture, Routine Urine Culture, Routine Mixed urogenital tami Urine Culture, Routine Urine Culture, Routine 50,000-100,000 co lony forming units per mL Urine Culture, Routine Urine Culture, Routine Performed at: [facility] Urine Culture, Routine Urine Culture, Routine [address] [place] [phone] Urine Culture, Routine Urine Culture, Routine Revenue Research Analyst: Riky Harris PhD, Phone: [phone] Urine Culture, Routine Performing Lab: see note - [facility] LB SEE REPORT - [place] Id information not found for OBX-specific manager golf legend US OB cervical length Reviewed date:03/14/2025 10:39:54 AM Interpretation: Performing Lab: Notes/Report: Source Facility: [place] [address] Ultrasound Report Signed Patient: VIMAL FUNES MR#: [id number] : 2000 Acct:[id number] Age/Sex: 24 / F ADM Date: 03/08/25 Loc: US Attending Dr: Mackenzie Rodriguez D.O. Ordering Physician: Mackenzie Rodriguez D.O. Date of Service: 03/08/25 Procedure(s): US OB cervical length Accession Number(s): [id number] cc: JENNIFER SEE ; Mackenzie Rodriguez D.O. The [place] [address] Patient Name: VIMAL FUNES MRN: [id number] date: 2000 Sex: F Assigned Patient Location: US Current Patient Location: US Accession/Order Number: [id number] Exam Date: 03/08/2025 20:31 Report Date: 03/08/2025 [...] Knapp M.D. 03/08/2025 8:36 PM Dictation Location: [place] [address] Electronically authenticated by: [id number] Y Date: 03/08/2025 20:36 Dictated By: Shivam Knapp D.O. Signed By: 03/08/252037 DD/ 35 TD/TT: [employer] Waterproof[employer] Machine Operator: [place] [address] Ultrasound Report Signed Patient: VIMAL FUNES MR#: [id number] : 2000 Acct:[id number] Age/Sex: 24 / F ADM Date: 03/08/25 Loc: US Attending Dr: Mackenzie Rodriguez D.O. Ordering Physician: Mackenzie Rodriguez D.O. Date of Service: 03/08/25 Procedure(s): US OB cervical length Accession Number(s): [id number] cc: JENNIFER SEE ; Mackenzie Rodriguez D.O. [place] [id number] Patient Name: VIMAL FUNES MRN: [id number] date: 2000 Sex: F Assigned Patient Location: US Current Patient Location: US Accession/Order Number: [id number] Exam Date: 03/08/2025 20:31 Report Date: 03/08/2025 [...] Knapp M.D. 03/08/2025 8:36 PM Dictation [facility] Electronically authenticated by: [id number] Y Date: 03/08/2025 20:36 Dictated By: Shivam Knapp D.O. Signed By: 03/08/252037 DD/ 35 TD/TT: Primer Waterproofing Machine Operator: US OB anatomy Reviewed date:03/14/2025 10:39:54 AM Interpretation: Performing Lab: Notes/Report: Source Facility: [place] [address] [place] [address] Ultrasound Report Signed Patient: VIMAL FUNES MR#: [id number] : 2000 Acct:[id number] Age/Sex: 24 / F ADM Date: 03/08/25 Loc: US Attending Dr: Mackenzie Rodriguez D.O. Ordering Physician: Mackenzie Rodriguez D.O. Date of Service: 03/08/25 Procedure(s): US OB anatomy Accession Number(s): [id number] cc: JENNIFER SEE ; Mackenzie Rodriguez D.O. [place] [id number] Patient Name: VIMAL FUNES MRN: [id number] date: 2000 Sex: F Assigned Patient Location: US Current Patient Location: US Accession/Order Number: [id number] Exam Date: 03/08/2025 20:31 Report Date: 03/08/2025 [...] Knapp M.D. 03/08/2025 8:36 PM Dictation Location: [employer] Electronically authenticated by: [id number] Y Date: 03/08/2025 20:36 Dictated By: Shivam Knapp D.O. Signed By: 03/08/252037 DD/ 35 TD/TT: Primer Waterproofing Machine Operator: [place] [address] Ultrasound Report Signed Patient: VIMAL FUNES MR#: [id number] : 2000 Acct:[id number] Age/Sex: 24 / F ADM Date: 03/08/25 Loc: US Attending Dr: Mackenzie Rodriguez D.O. Ordering Physician: Mackenzie Rodriguez D.O. Date of Service: 03/08/25 Procedure(s): US OB anatomy Accession Number(s): [id number] cc: JENNIFER SEE ; Mackenzie Rodriguez D.O. [place] [address] Patient Name: VIMAL FUNES MRN: [id number] date: 2000 Sex: F Assigned Patient Location: US Current Patient Location: US Accession/Order Number: [id number] Exam Date: 03/08/2025 20:31 Report Date: 03/08/2025 [...] Knapp M.D. 03/08/2025 8:36 PM Dictation Location: [place] [address] Electronically authenticated by: [id number] Y Date: 03/08/2025 20:36 Dictated By: Shivam Knapp D.O. Signed By: 03/08/252037 DD/ 35 TD/TT: Primer Waterproofing Machine Operator: CBC AUTO DIFF Reviewed date:04/29/2025 09:37:12 AM Interpretation: Performing Lab: Notes/Report: [facility] , White Blood Count 12.5 4.0-11.0 [...] Performing Lab: see note ML - [facility] LB Glucose 1 Hour Reviewed date:04/29/2025 09:37:12 AM Interpretation: Performing Lab: Notes/Report: [facility] , Glucose 1 Hour 171 <130 mg/dL Performing Lab: see note ML - [facility] LB BUN Reviewed date:05/06/2025 10:03:33 AM Interpretation: Performing Lab: Notes/Report: [facility] , Blood Urea Nitrogen 8.0 7.0-18.0 mg/dL Performing Lab: see note ML - [facility] LB CREATININE Reviewed date:05/06/2025 10:03:33 AM Interpretation: Performing Lab: Notes/Report: [facility] , Creatinine 0.37 0.55-1.02 mg/dL Estimated GFR ( Ashley >60 >=60 mL/min/1.73m 2 Estimated GFR (Non- Hortencia >60 >=60 mL/min/1.73m 2 Performing Lab: see note ML - [facility] LB LDH Reviewed date:05/06/2025 10:03:33 AM Interpretation: Performing Lab: Notes/Report: [facility] , Lactate Dehydrogenase 163 81-234 U/L Performing Lab: see note ML - [facility] LB SGOT Reviewed date:05/06/2025 10:03:33 AM Interpretation: Performing Lab: Notes/Report: [facility] , Aspartate Amino Transferase 23 15-37 U/L Performing Lab: see note ML - [facility] LB URIC ACID SERUM Reviewed date:05/06/2025 10:03:33 AM Interpretation: Performing Lab: Notes/Report: [facility] , Uric Acid 3.7 2.6-6.0 mg/dL Performing Lab: see note ML - [facility] LB Glucose Tolerance 3 Hour Reviewed date:05/06/2025 10:03:33 AM Interpretation: Performing Lab: Notes/Report: [facility] , Glucose Tolerance 3 Hour GLU FAST 108H (<95) Col: 05/04/25 0723 GLU 1HR 234H (<180) Col: 05/04/25 0826 GLU 2HR 186H (<155) Col: 05/04/25 0927 GLU 3HR 133 (<140) Col: 05/04/25 1028 Performing Lab: see note ML - [facility] US OB BPP w non-stress Reviewed date:05/06/2025 10:03:33 AM Interpretation: Performing Lab: Notes/Report: Source Facility: [place] [address] [place] [address] Ultrasound Report Signed Patient: VIMAL FUNES MR#: [id number] : 2000 Acct:[id number] Age/Sex: 25 / F ADM Date: 05/04/25 Loc: [facility] 250-[address]: Rossana Leach Ordering Physician: Rossana Leach Date of Service: 05/04/25 Procedure(s): US OB BPP w non-stress Accession Number(s): [id number] cc: Rossana Leach; JENNIFER SEE [place] [address] Patient Name: VIMAL FUNES MRN: [id number] date: 2000 Sex: F Assigned Patient Location: [facility] Current Patient Location: [facility] Accession/Order Number: [id number] Exam Date: 05/04/2025 12:08 Report Date: 05/04/2025 12:09 At the request of: ROSSANA LEACH Procedure: US OB BPP w non-stress Biophysical profile. Reason for exam: Gestational diabetes COMPARISON: None TECHNIQUE: Transabdominal imaging of the gravid uterus was obtained. FINDINGS: The home lending officer reports a BPP of 8 out of 8. DANYA is normal at 12.4 cm. heart rate 150 bpm. US/US OB BPP w non-stress IMPRESSION: BPP 8 out of 8. Impression dictated by: Bulmaro Arias Jr., D.O. 05/04/2025 12:09 PM Dictation Location: [place] [address] Electronically authenticated by: [id number] Y Date: 05/04/2025 12:09 Dictated By: Bulmaro Arias M.D. Signed By: 05/04/25 1212 DD/ 1201 TD/TT: Primer Waterproofing Machine Operator: [place] [address] Ultrasound Report Signed Patient: VIMAL FUNES MR#: [id number] : 2000 Acct:[id number] Age/Sex: 25 / F ADM Date: 05/04/25 Loc: [facility] 250-[address]: Rossana Leach Ordering Physician: Rossana Leach Date of Service: 05/04/25 Procedure(s): US OB BPP w non-stress Accession Number(s): [id number] cc: Rossana Leach; JENNIFER SEE [place] [address] Patient Name: VIMAL FUNES MRN: [id number] date: 2000 Sex: F Assigned Patient Location: [facility] Current Patient Location: [facility] Accession/Order Number: [id number] Exam Date: 05/04/2025 12:08 Report Date: 05/04/2025 12:09 At the request of: ROSSANA LEACH Procedure: US OB fet al BPP w non-stress Biophysical profile. Reason for exam: Gestational diabetes COMPARISON: None TECHNIQUE: Transabdominal imaging of the gravid uterus was obtained. FINDINGS: The home lending officer reports a BPP of 8 out of 8. DANYA is normal at 12.4 cm. heart rate 150 bpm. US/US OB BPP w non-stress IMPRESSION: BPP 8 ou t of 8. Impression dictated by: Bulmaro Arias Jr., D.O. 05/04/2025 12:09 PM Dictation Location: [place] [address] Electronically authenticated by: [id number] Y Date: 05/04/2025 12:09 Dictated By: Bulmaro Arias M.D. Signed By: 05/04/25 1212 DD/ 1209 TD/TT: Primer Waterproofing Machine Operator: US TREVIÑO growth Reviewed date:05/06/2025 10:03:33 AM Interpretation: Performing Lab: Notes/Report: Source Facility: [place] [address] [place] [address] Ultrasound Report Signed Patient: VIMAL FUNES MR#: [id number] : 2000 Acct:[id number] Age/Sex: 25 / F ADM Date: 05/04/25 Loc: [facility] 250-[address]: Rossana Leach Ordering Physician: Rossana Leach Date of Service: 05/04/25 Procedure(s): US OB growth Accession Number(s): [id number] cc: Rossana Leach; JENNIFER SEE [place] [id number] Patient Name: VIMAL FUNES MRN: [id number] date: 2000 Sex: F Assigned Patient Location: [facility] Current Patient Location: [facility] Accession/Order Number: [id number] Exam Date: 05/04/2025 12:06 Report Date: 05/04/2025 [...] Jr., D.O. 05/04/2025 12:08 PM Dictation Location: [employer] Electronically authenticated by: [id number] Y Date: 05/04/2025 12:08 Dictated By: Bulmaro Arias M.D. Signed By: 05/04/25 1211 DD/ 1208 TD/TT: Primer Waterproofing Machine Operator: [place] [address] Ultrasound Report Signed Patient: VIMAL FUNES MR#: [id number] : 2000 Acct:[id number] Age/Sex: 25 / F ADM Date: 05/04/25 Loc: [facility] 250-[address]: Rossana Leach Ordering Physician: Rossana Leach Date of Service: 05/04/25 Procedure(s): US OB growth Accession Number(s): [id number] cc: Rossana Leach; JENNIFER SEE [place] [address] Patient Name: VIMAL FUNES MRN: [id number] date: 2000 Sex: F Assigned Patient Location: [facility] Current Patient Location: [facility] Accession/Order Number: [id number] Exam Date: 05/04/2025 12:06 Report Date: 05/04/2025 [...] Jr., D.O. 05/04/2025 12:08 PM Dictation Location: [place] [address] Electronically authenticated by: [id number] Y Date: 05/04/2025 12:08 Dictated By: Bulmaro Arias M.D. Signed By: 05/04/25 1211 DD/ 1208 TD/TT: Primer Waterproofing Machine Operator: US OB BPP w non-stress Reviewed date:05/13/2025 12:03:41 PM Interpretation: Performing Lab: Notes/Report: Source Facility: [place] [address] Ultrasound Report Signed Patient: VIMAL FUNES MR#: [id number] : 2000 Acct:[id number] Age/Sex: 25 / F ADM Date: 05/11/25 Loc: [facility] [address] Attending Dr: Rossana Leach Ordering Physician: Rossana Leach Date of Service: 05/11/25 Procedure(s): US OB BPP w non-stress Accession Number(s): [id number] cc: Rossana Leach; JENNIFER SEE [place] [id number] Patient Name: VIMAL FUNES MRN: [id number] date: 2000 Sex: F Assigned Patient Location: [facility] Current Patient Location: [facility] Accession/Order Number: [id number] Exam Date: 05/11/2025 12:01 Report Date: 05/11/2025 12:02 At the request of: ROSSANA LEACH Procedure: US OB BPP w non-stress Biophysical profile. Reason for exam: Gestational diabetes COMPARISON: 05/04/2025 TECHNIQUE: Transabdominal imaging of the gravid uterus was obtained. FINDINGS: The home lending officer reports a BPP of 8 out of 8. DANYA is normal at 11.9 cm. heart rate 138 bpm. US/US OB BPP w non-stress IMPRESSION: BPP 8 out of 8. Impression dictated by: Bulmaro Arias Jr., D.O. 05/11/2025 12:02 PM Dictation Location: [place] [address] Electronically authenticated by: [id number] Y Date: 05/11/2025 12:02 Dictated By: Bulmaro Arias M.D. Signed By: 05/11/25 1204 DD/ 1202 TD/TT: Primer Waterproofing Machine Operator: [place] [address] Ultrasound Report Signed Patient: VIMAL FUNES MR#: [id number] : 2000 Acct:[id number] Age/Sex: 25 / F ADM Date: 05/11/25 Loc: [facility] [address] Attending Dr: Rossana Leach Ordering Physician: Rossana Leach Date of Service: 05/11/25 Procedure(s): US OB BPP w non-stress Accession Number(s): [id number] cc: Rossana Leach; JENNIFER SEE [facility] [address] [place] [address] Patient Name: VIMAL FUNES MRN: [facility]:[id number] date: 2000 Sex: F Assigned Patient Location: [facility] Current Patient Location: [facility] Accession/Order Number: [id number] Exam Date: 05/11/2025 12:01 Report Date: 05/11/2025 12:02 At the request of: ROSSANA LEACH Procedure: US OB fet al BPP w non-stress Biophysical profile. Reason for exam: Gestational diabetes COMPARISON: 05/04/2025 TECHNIQUE: Transabdominal imaging of the gravid uterus was obtained. FINDINGS: The home lending officer reports a BPP of 8 out of 8. DANYA is normal at 11.9 cm. heart rate 138 bpm. US/US OB BPP w non-stress IMPRESSION: BPP 8 ou t of 8. Impression dictated by: Bulmaro Arias Jr., D.O. 05/11/2025 12:02 PM Dictation Location: [facility]18 Electronically authenticated by: [id number] Y Date: 05/11/2025 12:02 Dictated By: Bulmaro Arias M.D. Signed By: 05/11/25 1204 DD/ 1202 TD/TT: [employer]proof[employer] Machine Operator: BUN Reviewed date:05/20/2025 11:23:08 AM Interpretation: Performing Lab: Notes/Report: [facility] , Blood Urea Nitrogen 9.0 7.0-18.0 mg/dL Performing Lab: see note ML - [facility] LB CREATININE Reviewed date:05/20/2025 11:23:08 AM Interpretation: Performing Lab: Notes/Report: [facility] , Creatinine 0.38 0.55-1.02 mg/dL Estimated GFR ( Ashley >60 >=60 mL/min/1.73m 2 Estimated GFR (Non- Hortencia >60 >=60 mL/min/1.73m 2 Performing Lab: see note ML - [facility] LB PTT Reviewed date:05/20/2025 11:23:08 AM Interpretation: Performing Lab: Notes/Report: [facility] , Partial Thromboplastin Time 25.6 22.3-36.2 sec Performing Lab: see note ML - [facility] LB SGOT Reviewed date:05/20/2025 11:23:08 AM Interpretation: Performing Lab: Notes/Report: [facility] , Aspartate Amino Transferase 18 15-37 U/L Performing Lab: see note - [facility] URIC ACID SERUM Reviewed date:05/20/2025 11:23:08 AM Interpretation: Performing Lab: Notes/Report: [facility] , Uric Acid 4.0 2.6-6.0 mg/dL Performing Lab: see note ML - [facility] LB Prothrombin Time INR Reviewed date:05/20/2025 11:23:08 AM Interpretation: Performing Lab: Notes/Report: [facility] , Prothrombin Time 10.2 9.0-11.6 sec INR 0.96 DESIRED INR: 2.0-3.0 CONDITIONS NOT LISTED BELOW 2.5-3.5 FOR PROSTHETIC HEART VALVE REPLACEMENT 2.5-3.5 RECURRENT THROMBOSIS Performing Lab: see note ML - [facility] US OB BPP w non-stress Reviewed date:05/20/2025 11:23:08 AM Interpretation: Performing Lab: Notes/Report: Source Facility: [place] [address] Ultrasound Report Signed Patient: VIMAL FUNES MR#: [id number] : 2000 Acct:[id number] Age/Sex: 25 / F ADM Date: 05/18/25 Loc: US Attending Dr: Rossana Leach Ordering Physician: Rossana Leach Date of Service: 05/18/25 Procedure(s): US OB BPP w non-stress Accession Number(s): [id number] cc: JENNIFER Watkins [place] [address] Patient Name: VIMAL FUNES MRN: [id number] date: 2000 Sex: F Assigned Patient Location: [facility] Current Patient Location: Accession/Order Number: [id number] Exam Date: 05/18/2025 11:16 Report Date: 05/18/2025 [...] Acharya M.D. 05/18/2025 5:08 PM Dictation Location: [place] [address] Electronically authenticated by: [id number] Y Date: 05/18/2025 17:08 Dictated By: Heriberto Acharya M.D. 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: [place] [address] Ultrasound Report Signed Patient: VIMAL FUNES MR#: [id number] : 2000 Acct:[id number] Age/Sex: 25 / F ADM Date: 05/18/25 Loc: US Attending Dr: Rossana Leach Ordering Physician: Rossana Leach Date of Service: 05/18/25 Procedure(s): US OB BPP w non-stress Accession Number(s): [id number] cc: Rossana Leach; JENNIFER SEE [address] [address] Patient Name: VIMAL FUNES MRN: [id number] date: 2000 Sex: F Assigned Patient Location: [facility] Current Patient Location: Accession/Order Number: [id number] Exam Date: 05/18/2025 11:16 Report Date: 05/18/2025 [...] Acharya M.D. 05/18/2025 5:08 PM Dictation [facility] Electronically authenticated by: [id number] Y Date: 05/18/2025 17:08 Dictated By: Heriberto Acharya M.D. 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: Total Protein 24 Hour Urine Reviewed date:05/21/2025 08:48:02 AM Interpretation: Performing Lab: Notes/Report: [facility] , Total Protein Urine Random 6.7 <=11.9 mg/dL Total Volume 24 Hour Urine 2900 Total Protein 24 Hour Urine 194.3 <=149.1 mg/24hr Performing Lab: see note ML - [facility] US OB BPP w non-stress Reviewed date:05/28/2025 11:03:16 AM Interpretation: Performing Lab: Notes/Report: Source Facility: [facility] [place] [address] [place] [address] Ultrasound Report Signed Patient: VIMAL FUNES MR#: [id number] : 2000 Acct:[id number] Age/Sex: 25 / F ADM Date: 05/25/25 Loc: US Attending Dr: Rossana Leach Ordering Physician: Rossana Leach Date of Service: 05/25/25 Procedure(s): US OB BPP w non-stress Accession Number(s): [id number] cc: JENNIFER Watkins [address] [id number] Patient Name: VIMAL FUNES MRN: [id number] date: 2000 Sex: F Assigned Patient Location: [facility] Current Patient Location: Accession/Order Number: [id number] Exam Date: 05/25/2025 08:21 Report Date: 05/25/2025 [...] Acharya M.D. 05/25/2025 11:13 AM Dictation Location: [place] [address] Electronically authenticated by: [id number] Y Date: 05/25/2025 11:13 Dictated By: Heriberto Acharya M.D. 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: [place] [address] Ultrasound Report Signed Patient: VIMAL FUNES MR#: [id number] : 2000 Acct:[id number] Age/Sex: 25 / F ADM Date: 05/25/25 Loc: US Attending Dr: Rossana Leach Ordering Physician: Rossana Leach Date of Service: 05/25/25 Procedure(s): US OB BPP w non-stress Accession Number(s): [id number] cc: JENNIFER Watkins [address] [address] Patient Name: VIMAL FUNES MRN: [id number] date: 2000 Sex: F Assigned Patient Location: [facility] Current Patient Location: Accession/Order Number: [id number] Exam Date: 05/25/2025 08:21 Report Date: 05/25/2025 [...] Acharya M.D. 05/25/2025 11:13 AM Dictation Location: [place] [address] Electronically authenticated by: [id number] Y Date: 05/25/2025 11:13 Dictated By: Heriberto Acharya M.D. 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: US OB BPP w non-stress Reviewed date:06/03/2025 09:38:37 AM Interpretation: Performing Lab: Notes/Report: Source Facility: [place] [address] Ultrasound Report Signed Patient: VIMAL FUNES MR#: [id number] : 2000 Acct:[id number] Age/Sex: 25 / F ADM Date: 06/01/25 Loc: US Attending Dr: Rossana Leach Ordering Physician: Rossana Leach Date of Service: 06/01/25 Procedure(s): US OB BPP w non-stress Accession Number(s): [id number] cc: JENNIFER Watkins [address] [address] Patient Name: VIMAL FUNES MRN: [id number] date: 2000 Sex: F Assigned Patient Location: US Current Patient Location: Accession/Order Number: [id number] Exam Date: 06/01/2025 10:59 Report Date: 06/01/2025 12:03 At the request of: ROSSANA LEACH Procedure: US OB BPP w non-stress Biophysical profile. Reason for exam: Gestational diabetes COMPARISON: 05/25/2025 TECHNIQUE: Transabdominal imaging of the gravid uterus was obtained. FINDINGS: The home lending officer reports a BPP of 8 out of 8. DANYA is normal at 11.0 cm. Cardiac activity was visualized by the home lending officer per tech note. No heart rate was documented. US/US OB BPP w non-stress IMPRESSION: BPP 8 out of 8. Impression dictated by: Bulmaro Arias Jr., D.O. 06/01/2025 12:03 PM Dictation Location: [place] [address] Electronically authenticated by: [id number] Y Date: 06/01/2025 12:03 Dictated By: Bulmaro Arias M.D. 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: [place] [address] Ultrasound Report Signed Patient: VIMAL FUNES MR#: [id number] : 2000 Acct:[id number] Age/Sex: 25 / F ADM Date: 06/01/25 Loc: US Attending Dr: Rossana Leach Ordering Physician: Rossana Leach Date of Service: 06/01/25 Procedure(s): US OB BPP w non-stress Accession Number(s): [id number] cc: JENNIFER Watkins [address] [address] Patient Name: VIMAL FUNES MRN: [id number] date: 2000 Sex: F Assigned Patient Location: US Current Patient Location: Accession/Order Number: [id number] Exam Date: 06/01/2025 10:59 Report Date: 06/01/2025 12:03 At the request of: ROSSANA LEACH Procedure: US OB fet al BPP w non-stress Biophysical profile. Reason for exam: Gestational diabetes COMPARISON: 05/25/2025 TECHNIQUE: Transabdominal imaging of the gravid uterus was obtained. FINDINGS: The home lending officer reports a BPP of 8 out of 8. DANYA is normal at 11.0 cm. Cardiac activity was visualized by the home lending officer per tech note. No heart rate was documented. US/US OB BPP w non-stress IMPRESSION: BPP 8 ou t of 8. Impression dictated by: Bulmaro Arias Jr., D.OGene 06/01/2025 12:03 PM Dictation Location: [place] [address] Electronically authenticated by: [id number] Y Date: 06/01/2025 12:03 Dictated By: Bulmaro Arias M.D. 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: LDH Reviewed date:05/20/2025 11:23:08 AM Interpretation: Performing Lab: Notes/Report: [facility] , Lactate Dehydrogenase 147 81-234 U/L Performing Lab: see note ML - [facility] LB CBC AUTO DIFF Reviewed date:05/20/2025 11:23:08 AM Interpretation: Performing Lab: Notes/Report: [facility] , White Blood Count 15.0 4.0-11.0 [...] 3/uL Performing Lab: see note - [facility] Total Protein 24 Hour Urine Reviewed date:05/07/2025 09:01:34 AM Interpretation: Performing Lab: Notes/Report: [facility] , Total Protein Urine Random <6.0 <=11.9 mg/dL Total Volume 24 Hour Urine 3700 Performing Lab: see note [facility] Prothrombin Time INR Reviewed date:05/06/2025 10:03:33 AM Interpretation: Performing Lab: Notes/Report: [facility] , Prothrombin Time 10.1 9.0-11.6 sec INR 0.95 DESIRED INR: 2.0-3.0 CONDITIONS NOT LISTED BELOW 2.5-3.5 FOR PROSTHETIC HEART VALVE REPLACEMENT 2.5-3.5 RECURRENT THROMBOSIS Performing Lab: see note [facility] LB PTT Reviewed date:05/06/2025 10:03:33 AM Interpretation: Performing Lab: Notes/Report: [facility] , Partial Thromboplastin Time 25.7 22.3-36.2 sec Performing Lab: see note [facility] LB CBC AUTO DIFF Reviewed date:05/06/2025 10:03:33 AM Interpretation: Performing Lab: Notes/Report: [facility] , White Blood Count 12.5 4.0-11.0 [...] Performing Lab: see note ML - [facility] US OB incomplete anatomy Reviewed date:03/25/2025 09:01:39 AM Interpretation: Performing Lab: Notes/Report: Source Facility: [facility] [place] [address] [place] [address] Ultrasound Report Signed Patient: VIMAL FUNES MR#: [id number] : 2000 Acct:[id number] Age/Sex: 24 / F ADM Date: 03/23/25 Loc: US Attending Dr: Mackenzie Rodriguez D.O. Ordering Physician: Mackenzie Rodriguez D.O. Date of Service: 03/23/25 Procedure(s): US OB incomplete anatomy Accession Number(s): [id number] cc: JENNIFER SEE ; Mackenzie Rodriguez D.O. [place] [address] Patient Name: VIMAL FUNES MRN: [id number] date: 2000 Sex: F Assigned Patient Location: US Current Patient Location: US Accession/Order Number: [id number] Exam Date: 03/25/2025 08:23 Report Date: 03/25/2025 [...] Brown M.D. 03/25/2025 8:25 AM Dictation Location: [place] [address] Electronically authenticated by: [id number] Y Date: 03/25/2025 08:25 Dictated By: Meghana Brown M.D. 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 Ordering Physician: Mackenzie Rodriguez D.O. Date of Service: 03/23/25 Procedure(s): US OB incomplete anatomy Accession Number(s): [id number] cc: JENNIFER SEE ; Mackenzie Rodriguez D.O. [place] [id number] Patient Name: VIMAL FUNES MRN: [id number] date: 2000 Sex: F Assigned Patient Location: US Current Patient Location: Accession/Order Number: [id number] Exam Date: 03/25/2025 08:23 Report Date: 03/25/2025 [...] Brown M.D. 03/25/2025 8:25 AM Dictation Location: [place] [address] Electronically authenticated by: [id number] Y Date: 03/25/2025 08:25 Dictated By: Meghana Brown M.D. Signed By: 03/25/25826 DD/ 4 TD/TT: [employer] Machine Operator: Hernandez PONCE HPV,Age Gdln Reviewed date:02/25/2025 03:13:18 PM Interpretation: Performing Lab: Notes/Report: SPATULA-ALONE ENDOCERVIX [facility] , Age Gdln ACOG Testing Note . TESTS RESULT FLAG UNITS REF RANGE LAB Clinician Provided Cytology Information Source.............End ocervix No. of containers..01 ThinPrep Vial Age Ramirez MORALES Yris... FLAG LEGEND: L-Low Normal,H-High Normal,LL-Alert Low,HH-Alert High <-Panic Low,>-Panic High,A-Abnormal,AA-Cri tical Abnormal Performed at: 01 =G [facility] [address] [place] [address] Jenise Byrne MD, IGP, rfx Aptima HPV ASCU Note . TESTS RESULT FLAG UNITS REF RANGE LAB DIAGNOSIS: 02 NEGATIVE FOR INTRAEPITHELIAL LESION OR MALIGNANCY. Specimen adequacy: 02 Satisfactory for evaluation. Endocervical and/or squamous metaplastic cells (endocervical component) are present. Performed by: Hussein Alvarez, Panelboard Assembler ([facility]) . 02 Note: Note 02 [...] Low,>-Panic High,A-Abnormal,AA-Cri tical Abnormal Performed at: [address] [address] Jenise Byrne MD, Performed at: =G - [facility] [id number] Revenue Research Analyst: Jenise Byrne MD, Phone: [phone] Performed at: [address] [id number] Revenue Research Analyst: Jenise Byrne MD, Phone: [phone] Performing Lab: see [facility] - [facility] Box Test Reviewed date:01/07/2025 01:05:16 PM Interpretation: Performing Lab: Notes/Report: [facility] , BOX Test Sent Out UNITY BOX Test Reference Lab [facility] Test Date Sent 01-05-25 Performing Lab: see note - [facility] LB HBsAg Screen Reviewed date:01/07/2025 01:05:16 PM Interpretation: Performing Lab: Notes/Report: [facility] , HBsAg Screen Negative Negative Performed at: [address] [id number] Revenue Research Analyst: Andrew Harris PhD, Phone: [phone] Performing Lab: see note - [facility] LB [...] utilized, such as Treponema pallidum (Syphilis) Screening [place] (195488) or Rapid Plasma Reagin (RPR) Test With Reflex to Quantitative RPR and Confirmatory Treponema pallidum Antibodies (921453). Performed at: [address] [id number] Revenue Research Analyst: Andrew Harris PhD, Phone: [phone] Performing Lab: see note - [facility] LB Type and Screen Reviewed date:01/07/2025 01:05:16 PM Interpretation: Performing Lab: Notes/Report: [facility] , Blood Type A Positive Antibody Screen NEGATIVE GLYCOHEMOGLOBIN A1C Reviewed date:01/07/2025 01:05:16 PM Interpretation: Performing Lab: Notes/Report: [facility] , Glycohemoglobin A1C 5.0 4.5-6.2 % ADA RECOMMENDED LIMIT 4.0 - 6.0 ADA THERAPEUTIC TARGET < 7.0 ACTION SUGGESTED > 7.0 Estimated Average Glucose 97 Performing Lab: see note ML - [facility] LB DRUG SCREEN RAPID (URINE) Reviewed date:01/07/2025 01:05:16 PM Interpretation: Performing Lab: Notes/Report: [facility] , Cannabinoid Screen Urine NEGATIVE NEGATIVE [...] Performing Lab: see note ML - [facility] LB CBC AUTO DIFF Reviewed date:01/07/2025 01:05:16 PM Interpretation: Performing Lab: Notes/Report: [facility] , White Blood Count 9.2 4.0-11.0 [...] Performing Lab: see note ML - [facility] LB PREG QUANT HCG Reviewed date:08/20/2024 11:36:34 AM Interpretation: Performing Lab: Notes/Report: [facility] , HCG Quantitative 6 5-50 0.2-1 WEEK 50-500 1-2 WEEKS 100-5,000 2-3 WEEKS 500-10,000 3-4 WEEKS 1,000-50,000 4-5 WEEKS 10,000-100,000 5-6 WEEKS 15,000-200,000 6-8 WEEKS 10,000-100,000 2-3 MONTHS Performing Lab: see note - [facility] LB Box Test Reviewed date:07/23/2024 08:22:00 AM Interpretation: Performing Lab: Notes/Report: [facility] , BOX Test Sent Out UNITY BOX Test Reference Lab UNITY BOX Test Date Sent 07/21/24 Performing Lab: see note - [facility] LB GLYCOHEMOGLOBIN A1C Reviewed date:07/23/2024 08:22:00 AM Interpretation: Performing Lab: Notes/Report: [facility] , Glycohemoglobin A1C 4.9 4.5-6.2 % ADA RECOMMENDED LIMIT 4.0 - 6.0 ADA THERAPEUTIC TARGET < 7.0 ACTION SUGGESTED > 7.0 Estimated Average Glucose 94 Performing Lab: see note - [facility] LB DRUG SCREEN RAPID (URINE) Reviewed date:07/23/2024 08:22:00 AM Interpretation: Performing Lab: Notes/Report: REEFLEX IF POSITIVE [facility] , Cannabinoid Screen Urine NEGATIVE NEGATIVE [...] 300 ng/mL Performing Lab: see note - [facility] LB CBC AUTO DIFF Reviewed date:07/23/2024 08:22:00 AM Interpretation: Performing Lab: Notes/Report: [facility] , White Blood Count 10.6 4.0-11.0 [...] Performing Lab: see note ML - [facility] Reason For Referral No Information Medications [...] Encounter Location Date Provider Diagnosis [facility] [address] [place] [address] 06/05/2024 Jennifer See Z33.1 and Wellness examination [...] ACCESS PPO PLUS LOCAL PLAN [address] [place] [address] [id number] Vimal Funes Self - patient is the insured [employer] [place] [employer] [address] [place] [address] [id number] Vimal Funes Self - patient is the insured Medical (General) History Medical History History ICD Code lead poisoning Surgical History Surgery Date(Month/Year) ear tubes
[2025-06-05 17:26] VITALS: BP 138/74; PULSE 71
--- OUTSIDE RECORDS SUMMARY | 2025-06-05 17:38 | XMS_ITS | CCD ---
Author Organization [facility] Care Team Providers Care Dust Operator Name Role Phone MICHAEL ., DR [...] Unavailable MISC, DR DOMINIQUE Primary Care Unavailable NAPLES, DR COCO Danielle Consulting Unavailable MICHAEL ., DR MANN Consulting Unavailable MICHAEL ., DR MANN Admitting Unavailable MICHAEL ., DR MANN Attending Unavailable MISC, DR DOMINIQUE Primary Care Unavailable MICHAEL ., DR MANN Consulting Unavailable MICHAEL ., DR MANN Admitting Unavailable MICHAEL ., DR MANN Attending Unavailable MISC, DR DOMINIQUE Primary Care Unavailable NAPLES, DR COCO Danielle Consulting Unavailable MICHAEL ., [...] Provider Unava ilable Michael DOJose Attending Provider [phone] Unallocated Arjun GREENBERG Provider Primary Care Provi [...] Glucose Monitoring Suppl (D-Care Glucometer) w/Device kit (16 sources) Start: 05-08-2025 End: 05-08-2026 Blood Glucose [...] Active isopropyl alcohol 0.7 ml/ml medicated pad (16 sources) Start: 05-08-2025 Alcohol Swabs (Alcohol Prep [...] source) Active 115/iron/folic acid ( 19 ORAL) (7 sources) 115/iron/folic acid ( 19 ORAL) Take [...] tolerance complicating ; childbirth; or the puerperium (20 sources) Gestational diabetes mellitus in childbirth, unspecified [...] Hypertension complicating ; childbirth and the puerperium (11 sources) -induced hypertension; Translations: [Gestational [-induced] hypertension [...] without diagnosis of hypertension] 04-11-2025 Episodic Other complications of (6 sources) Poor growth affecting management; Translations: [Maternal care for other known or suspected poor growth, third trimester, not applicable or unspecified] Onset: 06-04-2025 06-04-2025 Episodic Other connective tissue disease (1 source) [...] Value Interpretation Reference Range Facility US OB BPP W NON-STRESS on 06-01-[address] [address] Ultrasound Report Signed Patient: VIMAL FUNES MR#: [id number] : 2000 Acct:[id number] Age/Sex: 25 / F ADM Date: 06/01/25 Loc: US Attending Dr: Rossana Ramos Ordering Physician: Rossana Ramos Date of Service: 06/01/25 Procedure(s): US OB BPP w non-stress Accession Number(s): [id number] cc: Rossana Ramos; JENNIFER SEE [address] [address] Patient Name: VIMAL FUNES MRN: [facility]:[id number] date: 2000 Sex: F Assigned Patient Location: US Current Patient Location: Accession/Order Number: [id number] Exam Date: 06/01/2025 10:59 Report Date: 06/01/2025 12:03 At the request of: ROSSANA RAMOS Procedure: US OB BPP w non-stress Biophysical profile. Reason for exam: Gestational diabetes COMPARISON: 05/25/2025 TECHNIQUE: Transabdominal imaging of the gravid uterus was obtained. FINDINGS: The ball shagger reports a BPP of 8 out of 8. DANYA is normal at 11.0 cm. Cardiac activity was visualized by the ball shagger per tech note. No heart rate was documented. US/US OB BPP w non-stress IMPRESSION: BPP 8 out of 8. Impression dictated by: Bulmaro Arias Jr., D.O. 06/01/2025 12:03 PM Dictation Location: [place] [address] Electronically authenticated by: [id number] Y Date: 06/01/2025 12:03 Dictated By: Bulmaro Arias M.D. Signed By: 06/01/25 1206 DD/ 120 TD/TT: Hem Marker: [facility] Radiology, Radiologist, MD - 06/01/[address] [address] Ultrasound Report Signed Patient: VIMAL FUNES MR#: [id number] : 2000 Acct:[id number] Age/Sex: 25 / F ADM Date: 06/01/25 Loc: US Attending Dr: Rossana Ramos Ordering Physician: Rossana Ramos Date of Service: 06/01/25 Procedure(s): US OB BPP w non-stress Accession Number(s): [id number] cc: Rossana Ramos; JENNIFER SEE The [place] [address] Patient Name: VIMAL FUNES MRN: [id number] date: 2000 Sex: F Assigned Patient Location: US Current Patient Location: Accession/Order Number: [id number] Exam Date: 06/01/2025 10:59 Report Date: 06/01/2025 12:03 At the request of: ROSSANA RAMOS Procedure: US OB BPP w non-stress Biophysical profile. Reason for exam: Gestational diabetes COMPARISON: 05/25/2025 TECHNIQUE: Transabdominal imaging of the gravid uterus was obtained. FINDINGS: The ball shagger reports a BPP of 8 out of 8. DANYA is normal at 11.0 cm. Cardiac activity was visualized by the ball shagger per tech note. No heart rate was documented. US/US OB BPP w non-stress IMPRESSION: BPP 8 out of 8. Impression dictated by: Bulmaro Arias Jr., D.O. 06/01/2025 12:03 PM Dictation Location: [place] [address] Electronically authenticated by: [id number] Y Date: 06/01/2025 12:03 Dictated By: Bulmaro Arias M.D. Signed By: 06/01/25 1206 DD/ 1203 TD/TT: Hem Marker: [facility] Radiology Study observation (narrative) [facility] US OB BPP W NON-STRESS Ordered By: Radiologist Radiology on 06-01-2025 [facility] [employer] Work Phone: Urinalysis macro (dipstick) panel (U)on 05-28-2025 Bilirubin, UA Negative Negative - 4(70) +++ mg/dL [facility] Blood, UA Negative Negative - 50 Jason/mcL [facility] Clarity, UA Clear [facility] re Color, UA Yellow [facility] Glucose, UA Negative Negative - 1999(110) ++++ mg/dL [facility] Interpretation and review of laboratory results Normal [facility] Ketones, UA Negative Negative - 160(16) ++++ mg/dL [facility] Leukocytes, UA Negative Negative - 500+++ Carlos/mcL [facility] Nitrite, UA Negative Negative - Positive [facility] pH, UA 6.5 5 - 9 [facility] e Protein, UA Negative Negative - 1999(20) ++++ mg/dL [facility] Spec Grav, UA 1.005 1 - 1.03 [facility] Urobilinogen, UA 1.0 0.2 - 12 mg/dL [facility] US OB BPP W NON-STRESS on 05-25-2025 [place] [address] Ultrasound Report Signed Patient: VIMAL FUNES MR#: [id number] : 2000 Acct:[id number] Age/Sex: 25 / F ADM Date: 05/25/25 Loc: US Attending Dr: Rsosana Ramos Ordering Physician: Rossana Ramos Date of Service: 05/25/25 Procedure(s): US OB BPP w non-stress Accession Number(s): [id number] cc: Rossana Ramos; JENNIFER ESE [address] [address] Patient Name: VIMAL FUNES MRN: [id number]:[id number] date: 2000 Sex: F Assigned Patient Location: [facility] Current Patient Location: Accession/Order Number: [id number] Exam Date: 05/25/2025 08:21 Report Date: 05/25/2025 [...] Acharya M.D. 05/25/2025 11:13 AM Dictation Location: [email or web address] Electronically authenticated by: [id number] Y Date: 05/25/2025 11:13 Dictated By: Heriberto Acharya M.D. Signed By: 05/25/25 1116 DD/ 1113 TD/TT: Hem Marker: [facility] Radiology, Radiologist, - 05/25/2025 [place] [address] Ultrasound Report Signed Patient: VIMAL FUNES MR#: [id number] : 2000 Acct:[id number] Age/Sex: 25 / F ADM Date: 05/25/25 Loc: US Attending Dr: Rossana Ramos Ordering Physician: Rossana Ramos Date of Service: 05/25/25 Procedure(s): US OB BPP w non-stress Accession Number(s): [id number] cc: JENNIFER Watkins [address] [address] Patient Name: VIMAL FUNES MRN: [facility]:[id number] date: 2000 Sex: F Assigned Patient Location: [facility] Current Patient Location: Accession/Order Number: [id number] Exam Date: 05/25/2025 08:21 Report Date: 05/25/2025 [...] Acharya M.D. 05/25/2025 11:13 AM Dictation Location: [email or web address] Electronically authenticated by: [id number] Y Date: 05/25/2025 11:13 Dictated By: Heriberto Acharya M.D. Signed By: 05/25/25 1116 DD/ 1113 TD/TT: Hem Marker: [facility] Radiology Study observation (narrative) [facility] US OB BPP W NON-STRESS Ordered By: Radiologist Radiology on 05-25-2025 [facility] [employer] Work Phone: Urinalysis macro (dipstick) panel (U)on 05-22-2025 Bilirubin, UA Negative Negative - 4(70) +++ mg/dL [facility] Blood, UA Negative Negative - 50 Jason/mcL [facility] Clarity, UA Clear [facility] re Color, UA Yellow [facility] Glucose, UA Negative Negative - 1999(110) ++++ mg/dL [facility] Interpretation and review of laboratory results Normal [facility] Ketones, UA Negative Negative - 160(16) ++++ mg/dL [facility] Leukocytes, UA Negative Negative - 500+++ Carlos/mcL [facility] Nitrite, UA Negative Negative - Positive [facility] pH, UA 6 5 - 9 [facility] [employer] Protein, UA Negative Negative - 2000(20) ++++ mg/dL [facility] Spec Grav, UA 1.01 1 - 1.03 [facility] Urobilinogen, UA 0.2 0.2 - 12 mg/dL [facility] TBH TOTAL PROTEIN 24 HOUR UR INEon 05-20-2025 Interpretation and review of laboratory results Abnormal [facility] Protein (U) [Mass/Vol] 6.7 mg/dL NINF - 11.9 mg/dL [facility] TB TOTAL PROTEIN 24 HOUR [facility] 194.3 [facility] TOTAL VOLUME 24 HOUR URINE 2900 mL/24hr [facility] ALL CBC WITH AUTO DIFFon BASOPHILS ABSOLUTE AUTO 0 [facility] Basophils/100 WBC (Bld) 0.1 % Low 0.2 - 2.0 % [facility] Eosinophils/100 WBC (Bld) 1.7 % 0.9 - 7.0 % [facility] Erythrocyte distribution width (RBC) [Ratio] 12.7 % 11.0 - 15.0 % [facility] Hematocrit (Bld) [Volume fraction] 38.1 % 36.0 - 48.0 % [facility] Hemoglobin (Bld) [Mass/Vol] 13.3 g/dL 12.0 - 16.0 g/dL [facility] IMMATURE GRANULOCYTES ABS AUTO 0.06 High [facility] Immature granulocytes/100 WBC (Bld) 0.4 % 0.0 - 0.5 % [facility] Interpretation and review of laboratory results Abnormal [facility] LYMPHOCYTES ABSOLUTE AUTO 1.4 [facility] Lymphocytes/100 WBC (Bld) 9 % Low 20.5 - 60.0 % [facility] MCH (RBC) [Entitic mass] 31.9 pg 26.7 - 34.0 pg [facility] MCHC (RBC) [Mass/Vol] 34.9 g/dL 29.9 - 35.2 g/dL [facility] MCV (RBC) [Entitic vol] 91.4 fL 81.0 - 99.0 fL [facility] MONOCYTES ABSOLUTE AUTO 0.7 [facility] Monocytes/100 WBC (Bld) 4.7 % 1.7 - 12.0 % [facility] NEUTROPHILS ABSOLUTE AUTO 12.6 High [facility] Neutrophils/100 WBC (Bld) 84.1 % High 43.0 - 75.0 % [facility] Platelet mean volume (Bld) [Entitic vol] 11.2 fL 9.5 - 13.5 fL [facility] TBH EO # 0.3 [facility] PLT 223 [facility] RBC 4.17 Low [facility] WBC 15 High [facility] US OB BPP W NON-STRESS on 05-18-2025 [place] [id number] Ultrasound Report Signed Patient: VIMAL FUNES MR#: [id number] : 2000 Acct:[id number] Age/Sex: 25 / F ADM Date: 05/18/25 Loc: US Attending Dr: Rossana Ramos Ordering Physician: Rossana Ramos Date of Service: 05/18/25 Procedure(s): US OB BPP w non-stress Accession Number(s): [id number] cc: Rossana Ramos; JENNIFER SEE [place] [address] Patient Name: VIMAL FUNES MRN: [facility]:[id number] date: 2000 Sex: F Assigned Patient Location: [facility] Current Patient Location: Accession/Order Number: [id number] Exam Date: 05/18/2025 11:16 Report Date: 05/18/2025 [...] BPP w non-stress IMPRESSION: Biophysical profile score: /8 Impression dictated by: Heriberto Acharya M.D. 05/18/2025 5:08 PM Dictation Location: [place] [address] Electronically authenticated by: [id number] Y Date: 05/18/2025 17:08 Dictated By: Heriberto Acharya M.D. Signed By: 05/18/252016 DD/ 07 TD/TT: Hem Marker: [facility] Radiology, Radiologist, - 05/18/2025 The [place] [id number] Ultrasound Report Signed Patient: VIMAL FUNES MR#: [id number] : 2000 Acct:[id number] Age/Sex: 25 / F ADM Date: 05/18/25 Loc: US Attending Dr: Rossana Ramos Ordering Physician: Rossana Raoms Date of Service: 05/18/25 Procedure(s): US OB BPP w non-stress Accession Number(s): [id number] cc: Rossana Ramos; JENNIFER SEE [place] [phone] Patient Name: VIMAL FUNES MRN: [facility]:[id number] date: 2000 Sex: F Assigned Patient Location: [facility] Current Patient Location: Accession/Order Number: [id number] Exam Date: 05/18/2025 11:16 Report Date: 05/18/2025 [...] Acharya M.D. 05/18/2025 5:08 PM Dictation Location: [place] [address] Electronically authenticated by: [id number] Y Date: 05/18/2025 17:08 Dictated By: Heriberto Acharya M.D. Signed By: 05/18/252016 DD/ 07 TD/TT: Hem Marker: [facility] Radiology Study observation (narrative) [facility] US OB BPP W NON-STRESS Ordered By: Radiologist Radiology on 05-18-2025 [facility] [employer] Work Phone: Glucose random or fasting- P OCTOrdered By: Sheridan Smallwood on 05-13-2025 External Glucose Fasting Or Random (Fbs) 80 [facility] BPP W NON-STRESS on 05-11-2025 [place] [address] Ultrasound Report Signed Patient: VIMAL FUNES MR#: [id number] : 2000 Acct:[id number] Age/Sex: 25 / F ADM Date: 05/11/25 Loc: [facility] 253-[address]: Rossana Ramos Ordering Physician: Rossana Ramos Date of Service: 05/11/25 Procedure(s): US OB BPP w non-stress Accession Number(s): [id number] cc: Rossana Ramos; JENNIFER SEE [place] [address] Patient Name: VIMAL FUNES MRN: [facility]:[id number] date: 2000 Sex: F Assigned Patient Location: [facility] Current Patient Location: [facility] Accession/Order Number: [id number] Exam Date: 05/11/2025 12:01 Report Date: 05/11/2025 12:02 At the request of: ROSSANA RAMOS Procedure: US OB BPP w non-stress Biophysical profile. Reason for exam: Gestational diabetes COMPARISON: 05/04/2025 TECHNIQUE: Transabdominal imaging of the gravid uterus was obtained. FINDINGS: The ball shagger reports a BPP of 8 out of 8. DANYA is normal at 11.9 cm. heart rate 138 bpm. US/US OB BPP w non-stress IMPRESSION: BPP 8 out of 8. Impression dictated by: Bulmaro Arias Jr., D.O. 05/11/2025 12:02 PM Dictation Location: [place] [address] Electronically authenticated by: [id number] Y Date: 05/11/2025 12:02 Dictated By: Bulmaro Arias M.D. Signed By: 05/11/251203 DD/ 01 TD/TT: Hem Marker: [facility] Radiology, Radiologist, - 05/11/2025 [place] [address] Ultrasound Report Signed Patient: VIMAL FUNES MR#: [id number] : 2000 Acct:[id number] Age/Sex: 25 / F ADM Date: 05/11/25 Loc: [facility] 253-[address]: Rossana Ramos Ordering Physician: Rossana Ramos Date of Service: 05/11/25 Procedure(s): US OB BPP w non-stress Accession Number(s): [id number] cc: Rossana Ramos; JENNIFER SEE The [place] [address] Patient Name: VIMAL FUNES MRN: [facility]:[id number] date: 2000 Sex: F Assigned Patient Location: [facility] Current Patient Location: [facility] Accession/Order Number: [id number] Exam Date: 05/11/2025 12:01 Report Date: 05/11/2025 12:02 At the request of: ROSSANA RAMOS Procedure: US OB BPP w non-stress Biophysical profile. Reason for exam: Gestational diabetes COMPARISON: 05/04/2025 TECHNIQUE: Transabdominal imaging of the gravid uterus was obtained. FINDINGS: The ball shagger reports a BPP of 8 out of 8. DANYA is normal at 11.9 cm. heart rate 138 bpm. US/US OB BPP w non-stress IMPRESSION: BPP 8 out of 8. Impression dictated by: Bulmaro Arias Jr., D.O. 05/11/2025 12:02 PM Dictation Location: [place] [address] Electronically authenticated by: [id number] Y Date: 05/11/2025 12:02 Dictated By: Bulmaro Arias M.D. Signed By: 05/11/254 DD/ 01 TD/TT: Hem Marker: [facility] Radiology Study observation (narrative) [facility] US OB BPP W NON-STRESS Ordered By: Radiologist Radiology on 05-11-2025 [facility] [employer] Work Phone: TBH TOTAL PROTEIN 24 HOUR UR INEon 05-06-2025 TOTAL PROTEIN URINE RANDOM <6.0 NINF - 11.9 mg/dL [facility] TOTAL VOLUME 24 HOUR URINE 3700 mL/24hr [facility] Glucose Tolerance 100 gm loadon 05-04-2025 Glucose Tolerance Test 2 Hour 186 [facility] ALL CBC WITH AUTO DIFFon BASOPHILS ABSOLUTE AUTO 0 [facility] Basophils/100 WBC (Bld) 0.2 % 0.2 - 2.0 % [facility] Eosinophils/100 WBC (Bld) 2.6 % 0.9 - 7.0 % [facility] Erythrocyte distribution width (RBC) [Ratio] 12.7 % 11.0 - 15.0 % [facility] Hematocrit (Bld) [Volume fraction] 39.5 % 36.0 - 48.0 % [facility] Hemoglobin (Bld) [Mass/Vol] 13.7 g/dL 12.0 - 16.0 g/dL [facility] IMMATURE GRANULOCYTES ABS AUTO 0.05 High [facility] Immature granulocytes/100 WBC (Bld) 0.4 % 0.0 - 0.5 % [facility] Interpretation and review of laboratory results Abnormal [facility] LYMPHOCYTES ABSOLUTE AUTO 1.6 [facility] Lymphocytes/100 WBC (Bld) 12.6 % Low 20.5 - 60.0 % [facility] MCH (RBC) [Entitic mass] 31.9 pg 26.7 - 34.0 pg [facility] MCHC (RBC) [Mass/Vol] 34.7 g/dL 29.9 - 35.2 g/dL [facility] MCV (RBC) [Entitic vol] 92.1 fL 81.0 - 99.0 fL [facility] MONOCYTES ABSOLUTE AUTO 0.6 [facility] Monocytes/100 WBC (Bld) 5 % 1.7 - 12.0 % [facility] NEUTROPHILS ABSOLUTE AUTO 9.9 High [facility] Neutrophils/100 WBC (Bld) 79.2 % High 43.0 - 75.0 % [facility] Platelet mean volume (Bld) [Entitic vol] 11 fL 9.5 - 13.5 fL [facility] TBH EO # 0.3 [facility] TB[facility] PLT 226 [facility] TB[facility] RBC 4.29 [facility] TB[facility] WBC 12.5 High [facility] Glucose tolerance, 1 houron 05-04-2025 Glucose Tolerance Test 1 Hour 234 [facility] Glucose tolerance, 3 hourson 05-04-2025 Glucose Tolerance Test 3 Hour 133 [facility] Glucose, tolerance fastingon 05-04-2025 Glucose Tolerance Test Fasting 108 [facility] No Panel Informationon 05-04 [facility] US OB BPP W NON-STRESS on 05-04-2025 [place] [address] Ultrasound Report Signed Patient: VIMAL FUNES MR#: [id number] : 2000 Acct:[id number] Age/Sex: 25 / F ADM Date: 05/04/25 Loc: [facility] 250-[address]: Rossana Ramos Ordering Physician: Rossana Ramos Date of Service: 05/04/25 Procedure(s): US OB BPP w non-stress Accession Number(s): [id number] cc: Rossana Ramos; JENNIFER SEE [place] [phone] Patient Name: VIMAL FUNES MRN: [facility]:[id number] date: 2000 Sex: F Assigned Patient Location: [facility] Current Patient Location: [facility] Accession/Order Number: [id number] Exam Date: 05/04/2025 12:08 Report Date: 05/04/2025 12:09 At the request of: ROSSANA RAMOS Procedure: US OB BPP w non-stress Biophysical profile. Reason for exam: Gestational diabetes COMPARISON: None TECHNIQUE: Transabdominal imaging of the gravid uterus was obtained. FINDINGS: The ball shagger reports a BPP of 8 out of 8. DANYA is normal at 12.4 cm. heart rate 150 bpm. US/US OB BPP w non-stress IMPRESSION: BPP 8 out of 8. Impression dictated by: Bulmaro Arias Jr., D.O. 05/04/2025 12:09 PM Dictation Location: [employer] Electronically authenticated by: [id number] Y Date: 05/04/2025 12:09 Dictated By: Bulmaro Arias M.D. Signed By: 05/04/25 1212 DD/ 1209 TD/TT: Hem Marker: [facility] Radiology, Radiologist, MD - 05/04/2025 [place] [address] Ultrasound Report Signed Patient: VIMAL FUNES MR#: [id number] : 2000 Acct:[id number] Age/Sex: 25 / F ADM Date: 05/04/25 Loc: [facility] 250-[address]: Rossana Ramos Ordering Physician: Rossana Ramos Date of Service: 05/04/25 Procedure(s): US OB BPP w non-stress Accession Number(s): [id number] cc: Rossana Ramos; JENNIFER SEE [place] [address] Patient Name: VIMAL FUNES MRN: [facility]:[id number] date: 2000 Sex: F Assigned Patient Location: [facility] Current Patient Location: [facility] Accession/Order Number: [id number] Exam Date: 05/04/2025 12:08 Report Date: 05/04/2025 12:09 At the request of: ROSSANA RAMOS Procedure: US OB BPP w non-stress Biophysical profile. Reason for exam: Gestational diabetes COMPARISON: None TECHNIQUE: Transabdominal imaging of the gravid uterus was obtained. FINDINGS: The ball shagger reports a BPP of 8 out of 8. DANYA is normal at 12.4 cm. heart rate 150 bpm. US/US OB BPP w non-stress IMPRESSION: BPP 8 out of 8. Impression dictated by: Bulmaro Arias Jr., D.O. 05/04/2025 12:09 PM Dictation Location: [employer] Electronically authenticated by: [id number] Y Date: 05/04/2025 12:09 Dictated By: Bulmaro Arias M.D. Signed By: 05/04/25 1212 DD/ 1209 TD/TT: Hem Marker: [facility] Radiology Study observation (narrative) [facility] US OB BPP W NON-STRESS Ordered By: Radiologist Radiology on 05-04-2025 [facility] [employer] Work Phone: US OB GROWTHon 05-04-2025 [place] [id number] Ultrasound Report Signed Patient: VIMAL FUNES MR#: [id number] : 2000 Acct:[id number] Age/Sex: 25 / F ADM Date: 05/04/25 Loc: [facility] 250-[address]: Rossana Ramos Ordering Physician: Rossana Ramos Date of Service: 05/04/25 Procedure(s): US OB growth Accession Number(s): [id number] cc: Rossana Ramos; JENNIFER SEE [place] [phone] Patient Name: VIMAL FUNES MRN: [id number] date: 2000 Sex: F Assigned Patient Location: [facility] Current Patient Location: [facility] Accession/Order Number: [id number] Exam Date: 05/04/2025 12:06 Report Date: 05/04/2025 [...] Jr., DGeneOGene 05/04/2025 12:08 PM Dictation Location: [employer] Electronically authenticated by: [id number] Y Date: 05/04/2025 12:08 Dictated By: Bulmaro Arias M.D. Signed By: 05/04/25 1211 DD/ 1208 TD/TT: Hem Marker: [facility] Radiology, Radiologist, - 05/04/2025 [place] [address] Ultrasound Report Signed Patient: VIMAL FUNES MR#: [id number] : 2000 Acct:[id number] Age/Sex: 25 / F ADM Date: 05/04/25 Loc: [place] [address]: Rossana Ramos Ordering Physician: Rossana Ramos Date of Service: 05/04/25 Procedure(s): US OB growth Accession Number(s): [id number] cc: Rossana Ramos; JENNIFER SEE [place] [phone] Patient Name: VIMAL FUNES MRN: [facility]:[id number] date: 2000 Sex: F Assigned Patient Location: [facility] Current Patient Location: [facility] Accession/Order Number: [id number] Exam Date: 05/04/2025 12:06 Report Date: 05/04/2025 [...] Jr., [employer] 05/04/2025 12:08 PM Dictation Location: [employer] Electronically authenticated by: [id number] Y Date: 05/04/2025 12:08 Dictated By: Bulmaro Arias M.D. Signed By: 05/04/25 1211 DD/ 1208 TD/TT: Hem Marker: [facility] Radiology Study observation (narrative) [facility] US OB GROWTHOrdered By: Jeimy ologwilly Radiology on 05-04-2025 [facility] Work Phone: Urinalysis macro (dipstick) panel (U)on 04-30-2025 Bilirubin, UA Negative Negative - 4(70) +++ mg/dL [facility] Blood, UA Negative Negative - 50 Jason/mcL [facility] Clarity, UA Clear [facility] re Color, UA Yellow [facility] e Glucose, UA Positive Negative - 2000(110) ++++ mg/dL [facility] Interpretation and review of laboratory results Abnormal [facility] Ketones, UA Negative Negative - 160(16) ++++ mg/dL [facility] Leukocytes, UA Positive Negative - 500+++ Carlos/mcL [facility] Nitrite, UA Negative Negative - Positive [facility] pH, UA 6 5 - 9 [facility] e Protein, UA Negative Negative - 2000(20) ++++ mg/dL [facility] Spec Grav, UA 1.01 1 - 1.03 [facility] Urobilinogen, UA 1.0 0.2 - 12 mg/dL [facility] ALL CBC WITH AUTO DIFFon BASOPHILS ABSOLUTE AUTO 0 [facility] Basophils/100 WBC (Bld) 0.2 % 0.2 - 2.0 % [facility] Eosinophils/100 WBC (Bld) 2.2 % 0.9 - 7.0 % [facility] Erythrocyte distribution width (RBC) [Ratio] 12.9 % 11.0 - 15.0 % [facility] Hematocrit (Bld) [Volume fraction] 40 % 36.0 - 48.0 % [facility] Hemoglobin (Bld) [Mass/Vol] 13.6 g/dL 12.0 - 16.0 g/dL [facility] IMMATURE GRANULOCYTES ABS AUTO 0.04 High [facility] Immature granulocytes/100 WBC (Bld) 0.3 % 0.0 - 0.5 % [facility] Interpretation and review of laboratory results Abnormal [facility] LYMPHOCYTES ABSOLUTE AUTO 1.4 [facility] Lymphocytes/100 WBC (Bld) 10.8 % Low 20.5 - 60.0 % [facility] MCH (RBC) [Entitic mass] 31.7 pg 26.7 - 34.0 pg [facility] MCHC (RBC) [Mass/Vol] 34 g/dL 29.9 - 35.2 g/dL [facility] MCV (RBC) [Entitic vol] 93.2 fL 81.0 - 99.0 fL [facility] MONOCYTES ABSOLUTE AUTO 0.5 [facility] Monocytes/100 WBC (Bld) 4.3 % 1.7 - 12.0 % [facility] NEUTROPHILS ABSOLUTE AUTO 10.2 High [facility] Neutrophils/100 WBC (Bld) 82.2 % High 43.0 - 75.0 % [facility] Platelet mean volume (Bld) [Entitic vol] 10.6 fL 9.5 - 13.5 fL [facility] TBH EO # 0.3 [facility] TB[facility] PLT 202 [facility] TB RBC 4.29 [facility] TBH WBC 12.5 High [facility] Glucose 1h post 50g loadon 0 04-27-2025 Glucose, 1 hr PP 50GM dose 171 [facility] No Panel Informationon 04-27 [facility] e Urinalysis macro (dipstick) panel (U)on 04-25-2025 Bilirubin, UA Negative Negative - 4(70) +++ mg/dL [facility] Blood, UA Negative Negative - 50 Jason/mcL [facility] Clarity, UA Clear [facility] re Color, UA Yellow [facility] Health[facility] e Glucose, UA Negative Negative - 1999(110) ++++ mg/dL [facility] Interpretation and review of laboratory results Normal [facility] Ketones, UA Negative Negative - 160(16) ++++ mg/dL [facility] Leukocytes, UA Negative Negative - 500+++ Carlos/mcL [facility] Nitrite, UA Negative Negative - Positive [facility] pH, UA 6.5 5 - 9 [facility], UA Negative Negative - 1999(20) ++++ mg/dL [facility] Spec Grav, UA 1.01 1 - 1.03 [facility] Urobilinogen, UA 0.2 0.2 - 12 mg/dL [facility] Urinalysis macro (dipstick) panel (U)on 04-11-2025 Bilirubin, UA Negative Negative - 4(70) +++ mg/dL [facility] Blood, UA Negative Negative - 50 Jason/mcL [facility] Clarity, UA Clear [facility] re Color, UA Yellow [facility] Glucose, UA Negative Negative - 1999(110) ++++ mg/dL [facility] Interpretation and review of laboratory results Normal [facility] Ketones, UA Negative Negative - 160(16) ++++ mg/dL [facility] Leukocytes, UA Negative Negative - 500+++ Carlos/mcL [facility] Nitrite, UA Negative Negative - Positive [facility] pH, UA 7 5 - 9 [facility] e Protein, UA Negative Negative - 1999(20) ++++ mg/dL [facility] Spec Grav, UA 1.005 1 - 1.03 [facility] Urobilinogen, UA 1.0 0.2 - 12 mg/dL [facility] US OB INCOMPLETE ANATOMYon 0 03-25-2025 [place] [address] Ultrasound Report Signed Patient: VIMAL FUNES MR#: [id number] : 2000 Acct:[id number] Age/Sex: 24 / F ADM Date: 03/23/25 Loc: US Attending Dr: Jose Rodriguez D.O. Ordering Physician: Jose Rodriguez D.O. Date of Service: 03/23/25 Procedure(s): US OB incomplete anatomy Accession Number(s): [id number] cc: JENNIFER SEE ; Jose Rodriguez D.O. [address] [address] Patient Name: VIMAL FUNES MRN: [id number] date: 2000 Sex: F Assigned Patient Location: US Current Patient Location: US Accession/Order Number: [id number] Exam Date: 03/25/2025 08:23 Report Date: 03/25/2025 [...] Brown M.D. 03/25/2025 8:25 AM Dictation Location: [place] [address] Electronically authenticated by: [id number] Y Date: 03/25/2025 08:25 Dictated By: Meghana Brown M.D. Signed By: 03/25/25826 DD/ 4 TD/TT: Hem Marker: [facility] Radiology, Radiologist, MD - 03/25/2025 [place] [address] Ultrasound Report Signed Patient: VIMAL FUNES MR#: [id number] : 2000 Acct:[id number] Age/Sex: 24 / F ADM Date: 03/23/25 Loc: US Attending Dr: Jose Rodriguez D.O. Ordering Physician: Jose Rodriguez D.O. Date of Service: 03/23/25 Procedure(s): US OB incomplete anatomy Accession Number(s): [id number] cc: JENNIFER SEE ; Jose Rodriguez D.O. The [place] [id number] Patient Name: VIMAL FUNES MRN: [facility]:[id number] date: 2000 Sex: F Assigned Patient Location: US Current Patient Location: US Accession/Order Number: [id number] Exam Date: 03/25/2025 08:23 Report Date: 03/25/2025 [...] Brown M.D. 03/25/2025 8:25 AM Dictation Location: [place] [address] Electronically authenticated by: [id number] Y Date: 03/25/2025 08:25 Dictated By: Meghana Brown M.D. Signed By: 03/25/25826 DD/ 4 TD/TT: Hem Marker: [facility] Radiology Study observation (narrative) [facility] US OB INCOMPLETE ANATOMYOrde red By: Radiologist Radiology on 03-25-2025 [facility] Work Phone: Urinalysis macro (dipstick) panel (U)on 03-14-2025 Bilirubin, UA Negative Negative - 4(70) +++ mg/dL [facility] Blood, UA Negative Negative - 50 Jason/mcL [facility] Clarity, UA Clear [facility] re Color, UA Yellow [facility] e Glucose, UA Negative Negative - 1999(110) ++++ mg/dL [facility] Interpretation and review of laboratory results Normal [facility] Ketones, UA Negative Negative - 160(16) ++++ mg/dL [facility] Leukocytes, UA Negative Negative - 500+++ Carlos/mcL [facility] Nitrite, UA Negative Negative - Positive [facility] pH, UA 7 5 - 9 [facility] e Protein, UA Negative Negative - 1999(20) ++++ mg/dL [facility] Spec Grav, UA 1.01 1 - 1.03 [facility] Urobilinogen, UA 0.2 0.2 - 12 mg/dL [facility] [employer] No Panel InformationOrdered By: Radiologist Radiology on 03-08-2025 [place] Work Phone: No Panel Informationon 03-08 Radiology Study observation (narrative) [facility] ANATOMYon 03-08-2025 [place] [address] Ultrasound Report Signed Patient: VIMAL FUNES MR#: [id number] : 2000 Acct:[id number] Age/Sex: 24 / F ADM Date: 03/08/25 Loc: US Attending Dr: Jose Rodriguez D.O. Ordering Physician: Jose Rodriguez D.O. Date of Service: 03/08/25 Procedure(s): US OB anatomy Accession Number(s): [id number] cc: JENNIFER SEE ; Jose Rodriguez D.O. [place] [id number] Patient Name: VIMAL FUNES MRN: [id number] date: 2000 Sex: F Assigned Patient Location: US Current Patient Location: US Accession/Order Number: [id number] Exam Date: 03/08/2025 20:31 Report Date: 03/08/2025 [...] Knapp M.D. 03/08/2025 8:36 PM [facility]ictation [facility] Electron[facility] authentic[facility] by: [id number] Y Date: 03/08/2025 20:36 Dictated By: Shivam Knapp D.O. Signed By: 03/08/252037 DD/ 35 TD/TT: Hem Marker: [facility] Radiology, Radiologist, MD - 03/08/2025 [place] [address] Ultrasound Report Signed Patient: VIMAL FUNES MR#: [id number] : 2000 Acct:[id number] Age/Sex: 24 / F ADM Date: 03/08/25 Loc: US Attending Dr: Jose Rodriguez D.O. Ordering Physician: Jose Rodriguez D.O. Date of Service: 03/08/25 Procedure(s): US OB anatomy Accession Number(s): [id number] cc: JENNIFER SEE ; Jose Rordiguez D.O. The [place] [address] Patient Name: VIMAL FUNES MRN: [facility]:[id number] date: 2000 Sex: F Assigned Patient Location: US Current Patient Location: US Accession/Order Number: [id number] Exam Date: 03/08/2025 20:31 Report Date: 03/08/2025 [...] 03/08/2025 8:36 PM Dictation Location: [place] [address] Electronically authenticated by: [id number] Y Date: 03/08/2025 20:36 Dictated By: Shivam Knapp D.O. Signed By: 03/08/252037 DD/ 35 TD/TT: Hem [facility]er[facility] CERVICAL LENGTHon 02-24 [place] [address] Ultrasound Report Signed Patient: VIMAL FUNES MR#: [id number] : 2000 Acct:[id number] Age/Sex: 24 / F ADM Date: 03/08/25 Loc: US Attending Dr: Jose Rodriguez D.O. Ordering Physician: Jose Rodriguez D.O. Date of Service: 03/08/25 Procedure(s): US OB cervical length Accession Number(s): [id number] cc: JENNIFER SEE ; Jose Rodriguez D.O. [address] [address] Patient Name: VIMAL FUNES MRN: [id number] date: 2000 Sex: F Assigned Patient Location: US Current Patient Location: US Accession/Order Number: [id number] Exam Date: 03/08/2025 20:31 Report Date: 03/08/2025 [...] Knapp M.D. 03/08/2025 8:36 PM Dictation Location: [employer] [employer] Electronically authenticated by: [id number] Y Date: 03/08/2025 20:36 Dictated By: Shivam Knapp D.O. Signed By: 03/08/252037 DD/ 35 TD/TT: Hem Marker: [facility] Radiology, Radiologist, MD - 03/08/2025 [place] [address] Ultrasound Report Signed Patient: VIMAL FUNES MR#: [id number] : 2000 Acct:[id number] Age/Sex: 24 / F ADM Date: 03/08/25 Loc: US Attending Dr: Jose Rodriguez D.O. Ordering Physician: Jose Rodriguez D.O. Date of Service: 03/08/25 Procedure(s): US OB cervical length Accession Number(s): [id number] cc: JENNIFER SEE ; Jose Rodriguez D.O. The [address] [address] Patient Name: VIMAL FUNES MRN: [id number] date: 2000 Sex: F Assigned Patient Location: US Current Patient Location: US Accession/Order Number: [id number] Exam Date: 03/08/2025 20:31 Report Date: 03/08/2025 [...] Knapp M.D. 03/08/2025 8:36 PM Dictation [facility] Electron[facility] authenticated by: [id number] Y Date: 03/08/2025 20:36 Dictated By: Shivam Knapp D.O. Signed By: 03/08/252037 DD/ 35 TD/TT: Hem Marker: ARJUN Martinez IGP,APTIMA HPV,AGE GDLNon AGE GDLN ACOG TESTING Note . RUTH Martinez Comment on above: TESTS RESULT FLAG UN ITS REF RANGE LAB Clinician Provided Cytology Information Source.............[employer] No. of containers..01 ThinPrep Vial Age Ramirez Arndt... FLAG LEGEND: L-Low Normal,H-High Normal,LL-Alert Low,HH-Alert High <-Panic Low,>-Panic High,A-Abnormal,AA-Critical Abnormal Performed at: 01 =G [address] [address] Jenise Byrne MD, IGP, RFX APTIMA HPV ASCU Note . [facility] Comment on above: TESTS RESULT FLAG UN ITS REF RANGE LAB DIAGNOSIS: 02 NEGATIVE FOR INTRAEPITHELIAL LESION OR MALIGNANCY. Specimen adequacy: 02 Satisfactory for evaluation. Endocervical and/or squamous metaplastic cells (endocervical component) are present. Performed by: 02 Whitney Alvarez, Capacity Manager (ASCP) . 02 Note: Note 02 The [...] <-Panic Low,>-Panic High,A-Abnormal,AA-Critical Abnormal Performed at: [address] [address] Jenise Byrne MD, Performed at: = - [address] [id number] Skid Strapper: Jenise Byrne MD, Phone: [phone] Performed at: [facility] [address] [id number] Skid Strapper: Jenise Byrne MD, Phone: [phone] [facility] RECURRENT VAGINITIS (HTRX)on 02-22-2025 ATOPOBIUM VAGINAE 0 [facility] ATOPOBIUM VAGINAE Not detected [facility] BVAB 2,3 (BACTERIAL VAGINOSIS ASSOCIATED BACTERIA 2, 3); MOBILUNCUS SPP 0 [facility] BVAB 2,3 (BACTERIAL VAGINOSIS ASSOCIATED BACTERIA 2, 3); MOBILUNCUS SPP Not detected [facility] SIMEON ALBICANS, PARAPSILOSIS, TROPICALIS 0 [facility] SIMEON ALBICANS, PARAPSILOSIS, TROPICALIS Not detected [facility] SIMEON GLABRATA 0 [facility] SIMEON GLABRATA Not detected [facility] SIMEON KRUSEI 0 [facility] SIMEON KRUSEI Not detected [facility] CHLAMYDIA TRACHOMATIS 0 [facility] CHLAMYDIA TRACHOMATIS Not detected N [facility] GARDNERELLA VAGINALIS 0 [facility] GARDNERELLA VAGINALIS Not detected [facility] MEGASPHAERA (TYPES 1, 2) 0 [facility] Healthcare MEGASPHAERA (TYPES 1, 2) Not detected [facility] MYCOPLASMA GENITALIUM 0 [facility] Healthcare MYCOPLASMA GENITALIUM Not detected N [facility] Healthcare NEISSERIA GONORRHOEAE 0 [facility] NEISSERIA GONORRHOEAE Not detected N [facility] TRICHOMONAS VAGINALIS [address] [facility] TRICHOMONAS VAGINALIS Not detected N [facility] Healthcare [facility] Urinalysis macro (dipstick) panel (U)on 02-20-2025 Bilirubin, UA Negative Negative - 4(70) +++ mg/dL [facility] Blood, UA Negative Negative - 50 Jason/mcL [facility] Healthcare Clarity, UA Clear [facility] re Color, UA Yellow [facility] Health[facility] Glucose, UA Negative Negative - 1999(110) ++++ mg/dL [facility] Interpretation and review of laboratory results Abnormal [facility] Ketones, UA Negative Negative - 160(16) ++++ mg/dL [facility] Leukocytes, UA Negative Negative - 500+++ Carlos/mcL [facility] Nitrite, UA Negative Negative - Positive [facility] pH, UA 7 5 - 9 [facility] Health[facility] e Protein, UA Negative Negative - 1999(20) ++++ mg/dL [facility] Spec Grav, UA 1.01 1 - 1.03 [facility] care Urobilinogen, UA 0.2 0.2 - 12 mg/dL [facility] Unlisted Lab Teston 01-16-20 25 [facility] Urinalysis macro (dipstick) panel (U)on 01-14-2025 Bilirubin, UA Negative Negative - (70) +++ mg/dL [facility] Blood, UA Positive Negative - 50 Jason/mcL [facility] Healthcare Comment on above: trace-intact Clarity, UA Clear [facility] Healthca re Color, UA Yellow [facility] Health[facility] e Glucose, UA Negative Negative - 1999(110) ++++ mg/dL [facility] Interpretation and review of laboratory results Abnormal [facility] Ketones, UA Negative Negative - 160(16) ++++ mg/dL [facility] Leukocytes, UA Negative Negative - 500+++ Carlos/mcL [facility] Healthcare Nitrite, UA Negative Negative - Positive [facility] pH, UA 6 5 - 9 [facility] Protein, UA Negative Negative - 1999(20) ++++ mg/dL [facility] Spec Grav, UA 1.005 1 - 1.03 [facility] Urobilinogen, UA 0.2 0.2 - 12 mg/dL [facility] Health[facility] Free Cell DNA (Non-Pro Medica Send Out)on 01-13-2025 [facility] ALL CBC WITH AUTO DIFFon BASOPHILS ABSOLUTE AUTO 0 [facility] Basophils/100 WBC (Bld) 0.4 % 0.2 - 2.0 % [facility] Eosinophils/100 WBC (Bld) 1.7 % 0.9 - 7.0 % [facility] Erythrocyte distribution width (RBC) [Ratio] 12.3 % 11.0 - 15.0 % [facility] IMMATURE GRANULOCYTES ABS AUTO 0.02 [facility] Immature granulocytes/100 WBC (Bld) 0.2 % 0.0 - 0.5 % [facility] Interpretation and review of laboratory results Abnormal [facility] LYMPHOCYTES ABSOLUTE AUTO 1.4 [facility] Lymphocytes/100 WBC (Bld) 15.4 % Low 20.5 - 60.0 % [facility] MCH (RBC) [Entitic mass] 31.6 pg 26.7 - 34.0 pg [facility] MCHC (RBC) [Mass/Vol] 34.6 g/dL 29.9 - 35.2 g/dL [facility] MCV (RBC) [Entitic vol] 91.4 fL 81.0 - 99.0 fL [facility] MONOCYTES ABSOLUTE AUTO 0.5 [facility] Monocytes/100 WBC (Bld) 5.4 % 1.7 - 12.0 % [facility] NEUTROPHILS ABSOLUTE AUTO 7 High [facility] Neutrophils/100 WBC (Bld) 76.9 % High 43.0 - 75.0 % [facility] Platelet mean volume (Bld) [Entitic vol] 10.1 fL 9.5 - 13.5 fL [facility] TBH EO # 0.2 [facility] Health[facility] e TBH PLT 216 [facility] Health[facility] TBH RBC 4.65 [facility] TBH WBC 9.2 [facility] CBC without diffOrdered By: Lay Peacock on 01-05-2025 Rbc Mcv (Fl) By Automated Count 91.4 [facility] Drug Screen, Urineon 025 Amphetamine/Methamphet amine Negative [facility] Barbiturates Negative [facility] Benzodiazepines Negarive [facility] Cocaine Metabolite Negative [facility] Ecstasy Negative [facility] Methadone Negative [facility] Opiates Negative [facility] Phencyclidine Negative [facility] Thc Marijuana, Urine Negative [facility] HBV surface Ag IA Qlon 01-05 Hepatitis B Surface Antigen Negative [facility] HIV 1+2 Ab+HIV1 p24 Ag IA Ql on 01-05-2025 HIV 1&2 AB/AG Non-Reactive [facility] Hemoglobin A1con 01-05-2025 HbA1c (Bld) [Mass fraction] 5 % 4.0 - 6.0 % [facility] Laboratory - Hematology and Cell countson 01-05-2025 Hematocrit (Bld) [Volume fraction] 42.5 % [facility] [employer] Hemoglobin (Bld) [Mass/Vol] 14.7 g/dL [facility] No Panel Informationon 01-05 [facility] [employer] Rubella IGG immune statuson 01-05-2025 Rubella immune IgG 1.57 [facility] Type and screenon 01-05-2025 Abo/Rh(D) Positive [facility] US OB TRANSVAGINALon 025 US OB TRANSVAGINAL [...] II, MD, PHD at 14-Dec-2024 08:35:59 PM [facility] Normal Not Available Comment on above: Order Comment: US OB TRANSVAGINAL No LMP recorded. TBH PREG QUANT HCGon 11-21- 025 HCG QUANTITATIVE 13196 mIU/mL [facility] Comment on above: 5-50 0.2-1 WEEK 50-500 1-2 WEEKS 100-5,000 2-3 WEEKS 500-10,000 3-4 WEEKS 1,000-50,000 4-5 WEEKS 10,000-100,000 5-6 WEEKS 15,000-200,000 6-8 WEEKS 10,000-100,000 2-3 [facility] TBH PREG QUANT HCGon 025 HCG QUANTITATIVE 6254 mIU/mL [facility] Comment on above: 5-50 0.2-1 WEEK 50-500 1-2 WEEKS 100-5,000 2-3 WEEKS 500-10,000 3-4 WEEKS 1,000-50,000 4-5 WEEKS 10,000-100,000 5-6 WEEKS 15,000-200,000 6-8 WEEKS 10,000-100,000 2-3 [facility] neo[facility] TBH PREG QUANT HCGon 024 HCG QUANTITATIVE 6 mIU/mL [facility] Comment on above: 5-50 0.2-1 WEEK 50-500 1-2 WEEKS 100-5,000 2-3 WEEKS 500-10,000 3-4 WEEKS 1,000-50,000 4-5 WEEKS 10,000-100,000 5-6 WEEKS 15,000-200,000 6-8 WEEKS 10,000-100,000 2-3 [facility] ALL CBC WITH AUTO DIFFon 11- 15-2024 BASOPHILS ABSOLUTE AUTO 0 [facility] Basophils/100 WBC (Bld) 0.5 % 0.2 - 2.0 % [facility] Eosinophils/100 WBC (Bld) 6.2 % 0.9 - 7.0 % [facility] Erythrocyte distribution width (RBC) [Ratio] 11.9 % 11.0 - 15.0 % [facility] Hematocrit (Bld) [Volume fraction] 43.8 % 36.0 - 48.0 % [facility] Hemoglobin (Bld) [Mass/Vol] 14.8 g/dL 12.0 - 16.0 g/dL [facility] IMMATURE GRANULOCYTES ABS AUTO 0.02 [facility] Immature granulocytes/100 WBC (Bld) 0.2 % 0.0 - 0.5 % [facility] LYMPHOCYTES ABSOLUTE AUTO 2 [facility] Lymphocytes/100 WBC (Bld) 22.1 % 20.5 - 60.0 % [facility] MCH (RBC) [Entitic mass] 31.7 pg 26.7 - 34.0 pg [facility] MCHC (RBC) [Mass/Vol] 33.8 g/dL 29.9 - 35.2 g/dL [facility] MCV (RBC) [Entitic vol] 93.8 fL 81.0 - 99.0 fL [facility] MONOCYTES ABSOLUTE AUTO 0.5 [facility] Monocytes/100 WBC (Bld) 5.3 % 1.7 - 12.0 % [facility] NEUTROPHILS ABSOLUTE AUTO 5.8 [facility] Neutrophils/100 WBC (Bld) 65.7 % 43.0 - 75.0 % [facility] Platelet mean volume (Bld) [Entitic vol] 10 fL 9.5 - 13.5 fL [facility] TBH EO # 0.6 [facility] Healthcar e [facility] PLT 236 [facility] Health[facility] e TB RBC 4.67 [facility] TB WBC 8.9 [facility] Health[facility] e CL[facility]NC [facility] Health[facility] e [place] 08-10-2024 L Specimen: [id number] Received: 08/10/24 Status: CAROL Parker Num: [id number] Spec Type: Surgical Subm Dr: Jose Rodriguez Tissues: A Products of Conception - Spontaneous or Missed (CONTENTS OF CONCEPT Procedures: HE/2, Gross/Micro L4 Age/ Patient Sex Location Account Attending Physician Vimal Funes / LABELL [id number] Jose Rodriguez SPEC NUM: [id number] RECD: 08/10/24 STATUS: CAROL PARKER NUM: [id number] CAROLIN: 08/10/24 [facility] : Jose Rodriguez ENTERED: 08/10/[address]: Vignesh Schmitz SPEC TYPE: Surgical DEPT: MONICA ALTMAN ENTERED BY: [id number] RECV BY: [id number] ORDERED: HE/2, Gross/Micro L4 ORDERED: HE/2, Gross/Micro [...] villi and decidua. No tissue is identified. Pharmacist sections of the chorionic villi are submitted in cassette A1 with cordage sales representative sections of the decidua is submitted in cassette A2. (2, ss, [id number]) CPT Codes 79077 Specimen: [id number] Received: 08/10/24 Status: CAROL Parker Num: [id number] Spec Type: Surgical Subm : Jose Rodriguez Tissues: A Products of Conception - Spontaneous or Missed (CONTENTS OF CONCEPT Procedures: HE/2, Gross/Micro L4 Patient: Vimal Funes [id number] (Continued) Signed (signature on file) Josh Aragon MD 08/13/24 1647 Normal [facility] TBH PREG QUANT HCGon 024 HCG QUANTITATIVE 240 mIU/mL [facility] lthcare Comment on above: 5-50 0.2-1 WEEK 50-500 1-2 WEEKS 100-5,000 2-3 WEEKS 500-10,000 3-4 WEEKS 1,000-50,000 4-5 WEEKS 10,000-100,000 5-6 WEEKS 15,000-200,000 6-8 WEEKS 10,000-100,000 2-3 MONTHS CLINISYNC [facility] Healthcar e ALL CBC WITH AUTO DIFFon BASOPHILS ABSOLUTE AUTO 0.1 [facility] Basophils/100 WBC (Bld) 0.5 % 0.2 - 2.0 % [facility] Eosinophils/100 WBC (Bld) 2.8 % 0.9 - 7.0 % [facility] Erythrocyte distribution width (RBC) [Ratio] 11.9 % 11.0 - 15.0 % [facility] Hematocrit (Bld) [Volume fraction] 44.7 % 36.0 - 48.0 % [facility] Hemoglobin (Bld) [Mass/Vol] 15.3 g/dL 12.0 - 16.0 g/dL [facility] IMMATURE GRANULOCYTES ABS AUTO 0.03 [facility] Immature granulocytes/100 WBC (Bld) 0.3 % 0.0 - 0.5 % [facility] Interpretation and review of laboratory results Abnormal [facility] LYMPHOCYTES ABSOLUTE AUTO 1.6 [facility] Lymphocytes/100 WBC (Bld) 14.9 % Low 20.5 - 60.0 % [facility] MCH (RBC) [Entitic mass] 31.7 pg 26.7 - 34.0 pg [facility] MCHC (RBC) [Mass/Vol] 34.2 g/dL 29.9 - 35.2 g/dL [facility] MCV (RBC) [Entitic vol] 92.7 fL 81.0 - 99.0 fL [facility] MONOCYTES ABSOLUTE AUTO 0.4 [facility] Monocytes/100 WBC (Bld) 3.7 % 1.7 - 12.0 % [facility] NEUTROPHILS ABSOLUTE AUTO 8.2 High [facility] Neutrophils/100 WBC (Bld) 77.8 % High 43.0 - 75.0 % [facility] Platelet mean volume (Bld) [Entitic vol] 10 fL 9.5 - 13.5 fL [facility] TB EO # 0.3 [facility] e TB PLT 263 [facility] e TB RBC 4.82 [facility] WBC 10.6 [facility] e [facility] No Panel Informationon 07-21 [facility] DRUG SCREEN RAPID (URINE )on 07-21-2024 AMPHETAMINE SCREEN URINE Negative NEGATIVE [facility] BARBITURATES SCREEN URINE Negative NEGATIVE [facility] BENZODIAZEPINES SCREEN URINE Negative NEGATIVE [facility] BUPRENORPHINE SCREEN URINE Negative NEGATIVE [facility] Comment on above: DRUG CLASS [...] 300 ng/mL CANNABINOID SCREEN URINE Negative NEGATIVE [facility] COCAINE SCREEN URINE Negative NEGATIVE [facility] METHADONE SCREEN URINE Negative NEGATIVE [facility] METHAMPHETAMINES SCREEN URINE Negative NEGATIVE [facility] OPIATE SCREEN URINE Negative NEGATIVE [facility] OXYCODONE SCREEN URINE Negative NEGATIVE NO [facility] PHENCYCLIDINE SCREEN URINE Negative NEGATIVE [facility] TRICYCLIC ANTIDEPRESSANT URINE Negative NEGATIVE [facility] REEFLEX IF POSITIVE [facility] HCG ( test) Ql (U)o n 06-29-2024 Interpretation and review of laboratory results Abnormal [facility] Preg Test, Ur Positive [facility] Urinalysis macro (dipstick) panel (U)on 06-29-2024 Bilirubin, UA Negative Negative - 4(70) +++ mg/dL [facility] Blood, UA Negative Negative - 50 Jason/mcL [facility] Clarity, UA Clear [facility] re Color, UA Yellow [facility] Glucose, UA Negative Negative - 1999(110) ++++ mg/dL [facility] Interpretation and review of laboratory results Normal [facility] Ketones, UA Negative Negative - 160(16) ++++ mg/dL [facility] Leukocytes, UA Negative Negative - 500+++ Carlos/mcL [facility] Nitrite, UA Negative Negative - Positive [facility] pH, UA 7.0 5 - 9 [facility], [facility]A Negative Negative - 1999(20) ++++ mg/dL [facility] Spec Grav, UA 1.015 1 - 1.03 [facility] Urobilinogen, UA 0.2 0.2 - 12 mg/dL [facility] XR hand RT min 3V*on 023 XR hand RT min 3V* [facility] As Seen on TV Other XR hand RT min 3V* [facility] As Seen on TV Other XR hand RT min 3V* [address] [place] [address] [employer] Other XR hand RT min 3V* [place] [address] [employer] Other XR hand RT min 3V* XRay Report [employer] Other XR hand RT min 3V* Signed [employer] Other XR hand RT min 3V* Patient: Vimal Funes MR#: [id number] [employer] Other XR hand RT min 3V* 18 [employer] Other XR hand RT min 3V* : 2000 Acct:[id number] [employer] Other XR hand RT min 3V* Age/Sex: 22 / F ADM Date: 12/26/22 [employer] Other XR hand RT min 3V* Loc: XDUCLY Room: Type: [facility] [employer] Other XR hand RT min 3V* Attending Dr: Jennifer GIL [employer] Other XR hand RT min 3V* Copies to: JEFFERY Rodriguez [employer] Other XR hand RT min 3V* Ordering Provider: JEFFERY Rodriguez [employer] Other XR hand RT min 3V* Date of Service: 12/26/22 [employer] Other XR hand RT min 3V* XR/XR hand RT min 3V*: RIGHT HAND INJURY [employer] Other XR hand RT min 3V* RIGHT HAND - 4 views [employer] Other XR hand RT min 3V* REASON FOR EXAM: Patient had right thumb hyperextended yesterday when trying to open the door. Now [employer] Other XR hand RT min 3V* with pain. [employer] Other XR hand RT min 3V* COMPARISON: None [employer] Other XR hand RT min 3V* FINDINGS: [employer] Other XR hand RT min 3V* No focal soft tissue abnormality. There appears to be avulsion fracture involving the base of the [employer] Other XR hand RT min 3V* distal phalanx of the thumb. Joint spaces appear maintained. No bony erosions. [employer] Other XR hand RT min 3V* XR/XR hand RT min 3V* [employer] Other XR hand RT min 3V* IMPRESSION: [employer] Other XR hand RT min 3V* AVULSION FRACTURE INVOLVING THE BASE OF THE DISTAL PHALANX OF THE THUMB. [employer] Other XR hand RT min 3V* Impression dictated by: Bulmaro Arias Jr., D.O.12/26/2022 1:44 PM [employer] Other XR hand RT min 3V* Dictation Location: RADIO--[address] [place] [facility] Other XR hand RT min 3V* Transcribed By: PWS 12/26/22 1344 [employer] Other XR hand RT min 3V* Dictated By: Bulmaro Arias Jr DO 12/26/22 1343 [employer] Other XR hand RT min 3V* Signed By: [employer] Other XR hand RT min 3V* 12/26/[address] [place] [address] [facility] Other PAP ACOG PANEL 2: 22 to 30on 11-09-2022 . . Normal [facility] Comment on above: Performed By: #### [id number] ####[facility] [address] [place], [place] [address]DrGene Mancini Age Gdln ACOG Testing 21-29 [facility] Comment on above: Performed By: #### 4 [id number] ####[facility] [address] [place] [address]DrGene Mancini DIAGNOSIS: Comment Normal [facility] Comment on above: Result Comment: NEGA TIVE FOR INTRAEPITHELIAL LESION OR MALIGNANCY. Performed By: #### [id number] ####[facility] [address] [place], [place] [address]DrGene Mancini Methodology: Comment [facility] Comment on above: Result Comment: This liquid based ThinPrep(R) pap test was screened with the use of an image guided system. Performed By: #### 4 [id number] ####[facility] [address] [place] [address]DrGene Mancini Note: Comment Normal [facility] Comment on above: Result Comment: The Pap smear is a screening test designed to aid in the detection of premalignant and malignant conditions of the uterine cervix. It is not a diagnostic procedure and should not be used as the sole means of detecting cervical cancer. Both false-positive and false-negative reports do occur. . Performed By: #### [id number] ####[facility] [address] [place] [address]DrGene Mancini Performed by: Comment Normal [facility] Comment on above: Result Comment: Zuleima Lin, After School Program Teacher (ASCP) Performed By: #### [id number] ####[facility] [address] [place] [address]DrGene Mancini Reflex Criteria: Comment Normal [facility] Comment on above: Result Comment: The HPV DNA reflex criteria were not met with this specimen result therefore, no HPV testing was performed. . Performed By: #### 4 [id number] ####[facility] [address] [place] [address]Dr. Donis Mancini Specimen adequacy: Comment Normal [facility] Comment on above: Result Comment: Sati sfactory for evaluation. Endocervical and/or squamous metaplastic cells (endocervical component) are present. Performed By: #### 4 [id number] ####[facility] [address] [place] [address]Dr. Donis Mancini Cytology Cervical or vaginal smear or scraping studyOrdered By: Jael Nix on 11-02-2022 [facility] CBC AUTO DIFFon 08-11-2022 BASO # 0.0 103/ul Normal 0.0-0.1 [facility] Comment on above: Performed By: #### C T/NGNA #### [facility] [id number] Donis Mancini Basophils/100 WBC (Bld) 0.2 % Normal 0.2-2.0 [facility] Comment on above: Performed By: #### C T/NGNA #### [facility] [address] [place] [address] Dr. Donis Mancini EO # 0.1 103/ul Normal 0.0-0.7 [facility] Comment on above: Performed By: #### C T/NGNA #### [facility] [address] [place] [address] Dr. Donis Mancini Eosinophils/100 WBC (Bld) 0.5 % Critically low 0.9-7.0 [facility] Comment on above: Performed By: #### C T/NGNA #### [facility] [address] [place] [address] Dr. Donis Mancini Erythrocyte distribution width (RBC) [Ratio] 12.5 % Normal 11.0-15.0 [facility] Comment on above: Performed By: #### C T/NGNA #### [facility] [address] [place] [address] Dr. Donis Mancini Hematocrit (Bld) [Volume fraction] 35.9 % Critically low 36.0-48.0 [facility] Comment on above: Performed By: #### C T/NGNA #### [facility] [address] [place] [address] Dr. Donis Mancini Hemoglobin (Bld) [Mass/Vol] 12.4 g/dL Normal 12.0-16.0 [facility] Comment on above: Result Comment: michelet ent delivered Performed By: #### C T/NGNA #### [facility] [address] [place] [address] Dr. Donis Mancini IG # 0.10 10e3/ul Critically high 0.00-0.03 [facility] Comment on above: Performed By: #### C T/NGNA #### [facility] [address] [place] [address] Dr. Donis Mancini IG % 0.5 % Normal 0.0-0.5 [facility] Comment on above: Performed By: #### C T/NGNA #### [facility] [address] [place] [address] Dr. Donis Mancini LYMPH # 1.5 103/ul Normal 1.2-3.8 [facility] Comment on above: Performed By: #### C T/NGNA #### [facility] [address] [place] [address] Dr. Donis Mancini Lymphocytes/100 WBC (Bld) 7.6 % Critically low 20.5-60.0 [facility] Comment on above: Performed By: #### C T/NGNA #### [facility] [address] [place] [address] Dr. Donis Mancini MANUAL DIFF REQ NO Normal [facility] Comment on above: Performed By: #### C T/NGNA #### [facility] [address] [place] [address] Dr. Donis Mancini MCH (RBC) [Entitic mass] 32.2 pg Normal 26.7-34.0 [facility] Comment on above: Performed By: #### C T/NGNA #### [facility] [address] [place] [address] Dr. Donis Mancini MCHC (RBC) [Mass/Vol] 34.5 g/dL Normal 29.9-35.2 [facility] Comment on above: Performed By: #### C T/NGNA #### [facility] [address] [place] [address] Dr. Donis Mancini MCV (RBC) [Entitic vol] 93.2 fL Normal 81.0-99.0 [facility] Comment on above: Performed By: #### C T/NGNA #### [facility] [address] [place] [address] Dr. Donis Mancini MONO # 1.3 103/ul Critically high 0.3-0.8 [facility] Comment on above: Performed By: #### C T/NGNA #### [facility] [address] [place] [address] Dr. Donis Mancini Monocytes/100 WBC (Bld) 6.8 % Normal 1.7-12.0 [facility] Comment on above: Performed By: #### C T/NGNA #### [facility] [address] [place] [address] Dr. Donis Mancini NEUT # 16.2 103/ul Critically high 1.4-6.5 [facility] Comment on above: Performed By: #### C T/NGNA #### [facility] [address] [place] [address] Dr. Donis Mancini Neutrophils/100 WBC (Bld) 84.4 % Critically high 43.0-75.[address] [facility] Comment on above: Performed By: #### C T/NGNA #### [facility] [address] [place] [address] Dr. Donis Mancini Platelet mean volume (Bld) [Entitic vol] 11.8 fL Normal 9.5-13.[address] [facility] Comment on above: Performed By: #### C T/NGNA #### [facility] [address] [place] [address] Dr. Donis Mancini PLT 156 103/ul Normal 150-[address] [facility] Comment on above: Performed By: #### C T/NGNA #### [facility] [address] [place] [address] Dr. Donis Mancini RBC 3.85 106/ul Critically low 4.20-5.40 [facility] Comment on above: Performed By: #### C T/NGNA #### [facility] [address] [place] [address] Dr. Donis Mancini WBC 19.2 103/ul Critically high 4.0-11.0 [facility] Comment on above: Performed By: #### C T/NGNA #### [facility] [address] [place] [address] Dr. Donis Mancini Covid-19 PCR ([facility])on 07-27 SARS-CoV-2 (COVID-19) RNA INESSA+probe Ql (Unsp spec) Not detected Normal NOT DETECTED [facility] Comment on above: Result Comment: When [...] for this test is supported by the Deicer Kit Assembler of Health and Human Service's declaration that [...] be used). Performed By: #### C VDTBH ####[facility] [address] [place], [place] [address]Dr. Donis Mancini DRUG SCREEN RAPID (URINE)on 08-10-2022 AMP Negative Normal NEGATIVE [facility] Comment on above: Performed By: #### D RUGRPD ####[facility] [address] [place], [place] [address]Dr. Donis Mancini BAR Negative Normal NEGATIVE [facility] Comment on above: Performed By: #### D RUGRPD ####[facility] F[address]ch[address] [place], [place] [address]Dr. Donis Mancini BUP Negative Normal NEGATIVE [facility] Comment on above: Performed By: #### D RUGRPD ####[facility] [address]ts[address] [place], [place] [address]Dr. Donis [facility] BZO Negative Normal NEGATIVE [facility] Comment on above: Performed By: #### D RUGRPD ####[facility] [address] [place], [place] [address]Dr. Donis Mancini ALEXA Negative Normal NEGATIVE [facility] Comment on above: Performed By: #### D RUGRPD ####[facility] [address] [place], [place] [address]Dr. Donis [facility] CUT-OFFS SEE BELOW Normal [facility] Comment on above: Result Comment: AMP (Amphetamine): 500ng/mL, BAR (Barbituates): 200 ng/mL, BZO (Benzodiazepines): 150 ng/mL, BUP (Buprenorphine): 10 ng/mL, ALEXA (Cocaine): 150 ng/mL, mAMP (Methamphetamine): 500 ng/mL, MTD (Methadone): 200 ng/mL, OPI (Opiates): 100 ng/mL, OXY (Oxycodone): 100 ng/mL, PCP (Phencyclidine): 25 ng/mL, PPX (Propoxyphene): 300 ng/mL, THC (Cannabinoids): 50 ng/mL, TCA (Trycyclic Antidepressants): 300 ng/mL Performed By: #### D RUGRPD ####[facility] X[address]xc[address] [place], [place] [address]Dr. javi [facility] DRUG CUT HEADER DRUG CLASS TEST SYSTEM CUT-OFF CONCENTRATIONS ARE FOLLOWS: Normal [facility] Comment on above: Performed By: #### D RUGRPD ####[facility] [address] [place], [place] [address]Dr. Laceyjavi Mancini mAMP Negative Normal NEGATIVE [facility] Comment on above: Performed By: #### D RUGRPD ####[facility] [address] [place], [place] [address]Dr. Donis Mancini MTD Negative Normal NEGATIVE [facility] Comment on above: Performed By: #### D RUGRPD ####[facility] [address]ms[address] [place], [place] [address]Dr. Donis Mancini OPI Negative Normal NEGATIVE [facility] Comment on above: Performed By: #### D RUGRPD ####[facility] Fu[address]em[address] [place], [place] [address]Dr. Donis Mancini OXY Negative Normal NEGATIVE [facility] Comment on above: Performed By: #### D RUGRPD ####[facility] [address] [place], [place] [address]Dr. Laceyjavi Mancini PCP Negative Normal NEGATIVE [facility] Comment on above: Performed By: #### D RUGRPD ####[facility] [address]ktu[address] [place], [place] [address]Dr. Laceyjavi [facility] PPX Negative Normal NEGATIVE [facility] Comment on above: Performed By: #### D RUGRPD ####[facility] C[address]xcog[address] [place], [place] [address]Dr. Donis Mancini TCA Negative Normal NEGATIVE [facility] Comment on above: Performed By: #### D RUGRPD ####[facility] [address] [place], [place] [address]Cu. Donis Mancini THC Negative Normal NEGATIVE [facility] Comment on above: Performed By: #### D RUGRPD ####[facility] [address] [place], [place] [address]Yn. Donis Mancini TYPE AND SCREENon 08-10-2022 TYPE AND SCREEN Negative Normal [facility] Comment on above: Performed By: #### T NS ####[facility] [address] [place], [place] [address]Sl. Donis Mancini US PREG BIOPHY W NON [...] ESTEFANY BENNETT Date: 2022-08-10 07:[address] [facility] US PREG GROWTHon 08-10-2022 US PREG [...] growth detailed above. Electronically authenticated by: ESTEFANY ZIISABELLAJOSE Date: 2022-08-10 07:[address] [facility] CBC AUTO DIFFon 08-09-2022 BASO # 0.0 103/ul Normal 0.0-0.[address] [facility] Comment on above: Performed By: #### C BC ####[facility] [address] [place] [address]Dr. Donis Mancini Basophils/100 WBC (Bld) 0.2 % Normal 0.2-2.[address] [facility] Comment on above: Performed By: #### C BC ####[facility] [address] [place], [place] [address]Dr. Donis Mancini EO # 0.4 103/ul Normal 0.0-0.[address] [facility] Comment on above: Performed By: #### C BC ####[facility] [address] [place], [place] [address]Dr. Donis Mancini Eosinophils/100 WBC (Bld) 2.8 % Normal 0.9-7.[address] [facility] Comment on above: Performed By: #### C BC ####[facility] [address]ld[address] [place], [place] [address]Dr. Donis Mancini Erythrocyte distribution width (RBC) [Ratio] 12.2 % Normal 11.0-15.[address] [facility] Comment on above: Performed By: #### C BC ####[facility] [address] [place], [place] [address]Dr. Donis Mancini Hematocrit (Bld) [Volume fraction] 41.4 % Normal 36.0-48.[address] [facility] Comment on above: Performed By: #### C BC ####[facility] [address] [place], [place] [address]Dr. Donis Mancini Hemoglobin (Bld) [Mass/Vol] 14.4 g/dL Normal 12.0-16.[address] [facility] Comment on above: Performed By: #### C BC ####[facility] [address] [place] [id number]. Donis Mancini IG # 0.06 10e3/ul Critically high 0.00-0.03 [facility] Comment on above: Performed By: #### C BC ####[facility] [address] [place] [address]Dr. Donis Live IG % 0.5 % Normal 0.0-0.[address] [facility] Comment on above: Performed By: #### C BC ####[facility] [address] [place] [address]Dr. Donis Mancini LYMPH # 1.5 103/ul Normal 1.2-3.[address] [facility] Comment on above: Performed By: #### C BC ####[facility] [address] [place] [address]Dr. Donis Mancini Lymphocytes/100 WBC (Bld) 11.7 % Critically low 20.5-60.[address] [facility] Comment on above: Performed By: #### C BC ####[facility] [address] [place] [address]Dr. Laceyjavi Mancini MANUAL DIFF REQ NO Normal [facility] Comment on above: Performed By: #### C BC ####[facility] [address] [place] [address]Dr. Donis Manicni MCH (RBC) [Entitic mass] 31.9 pg Normal 26.7-34.[address] [facility] Comment on above: Performed By: #### C BC ####[facility] [address] [place] [address]Dr. Donis Mancini MCHC (RBC) [Mass/Vol] 34.8 g/dL Normal 29.9-35.[address] [facility] Comment on above: Performed By: #### C BC ####[facility] [address] [place], [place] [address]Dr. Donis Mancini MCV (RBC) [Entitic vol] 91.8 fL Normal 81.0-99.[address] [facility] Comment on above: Performed By: #### C BC ####[facility] [address] [place] [id number]. Donis Mancini MONO # 1.0 103/ul Critically high 0.3-0.8 [facility] Comment on above: Performed By: #### C BC ####[facility] [address] [place] [address]Dr. Donis Mancini Monocytes/100 WBC (Bld) 7.5 % Normal 1.7-12.[address] [facility] Comment on above: Performed By: #### C BC ####[facility] [address] [place], [place] [address]Dr. Donis Mancini NEUT # 10.0 103/ul Critically high 1.4-6.5 [facility] Comment on above: Performed By: #### C BC ####[facility] [address] [place], [place] [address]Dr. Donis Mancini Neutrophils/100 WBC (Bld) 77.3 % Critically high 43.0-75.[address] [facility] Comment on above: Performed By: #### C BC ####[facility] [address] [place], [place] [address]Dr. Donis Mancini Platelet mean volume (Bld) [Entitic vol] 11.6 fL Normal 9.5-13.[address] [facility] Comment on above: Performed By: #### C BC ####[facility] [address] [place], [place] [address]Dr. Donis Mancini PLT 184 103/ul Normal 150-[address] [facility] Comment on above: Performed By: #### C BC ####[facility] [address] [place], [place] [address]Dr. Donis Mancini RBC 4.51 106/ul Normal 4.20-5.[address] [facility] Comment on above: Performed By: #### C BC ####[facility] [address] [place], [place] [address]Dr. Donis Mancini WBC 12.9 103/ul Critically high 4.0-11.0 [facility] Comment on above: Performed By: #### C BC ####[facility] [address] [place], [place] [address]Dr. Donis Mancini LDHon 08-09-2022 LDH 167 U/L Normal 81-234 [facility] Comment on above: Performed By: #### C T/NGNA #### [facility] [address] [place] [address] Dr. Donis Mancini PROF 14(COMP METB)on 08-09- 022 Albumin [Mass/Vol] 2.7 g/dL Critically low 3.4-5.0 [facility] Comment on above: Performed By: #### C T/NGNA #### [facility] [address] [place] [address] Dr. Donis Mancini Albumin/Globulin [Mass ratio] 0.6 {ratio} Normal [facility] Comment on above: Performed By: #### C T/NGNA #### [facility] [address] [place] [address] Dr. Donis Mancini ALP [Catalytic activity/Vol] 176 U/L Critically high 46-116 [facility] Comment on above: Performed By: #### C T/NGNA #### [facility] [address] [place] [address] Dr. Donis Mancini ALT [Catalytic activity/Vol] 20 U/L Normal 14-59 [facility] Comment on above: Performed By: #### C T/NGNA #### [facility] [address] [place] [address] Dr. Donis Mancini Anion gap [Moles/Vol] 12.9 mmol/L Normal [facility] Comment on above: Performed By: #### C T/NGNA #### [facility] [address] [place] [address] Dr. Donis Mancini AST [Catalytic activity/Vol] 20 U/L Normal 15-37 [facility] Comment on above: Performed By: #### C T/NGNA #### [facility] [address] [place] [address] Dr. Donis Mancini Bilirubin [Mass/Vol] 0.1 mg/dL Critically low 0.2-1.0 [facility] Comment on above: Performed By: #### C T/NGNA #### [facility] [address] [place] [address] [address] Donis Mancini Calcium [Mass/Vol] 9.1 mg/dL Normal 8.5-10.1 [facility] Comment on above: Performed By: #### C T/NGNA #### [facility] [address] [place] [address] [address] Dnois Mancini Chloride [Moles/Vol] 104 mmol/L Normal 98-[address] [facility] Comment on above: Performed By: #### C T/NGNA #### [facility] [address] [place] [address] [address] Donis Mancini CO2 [Moles/Vol] 22.9 mmol/L Normal 21.0-32.0 [facility] Comment on above: Performed By: #### C T/NGNA #### [facility] [address] [place] [address] Dr. Donis Mancini Creatinine [Mass/Vol] 0.43 mg/dL Critically low 0.55-1.02 [facility] Comment on above: Performed By: #### C T/NGNA #### [facility] [address] [place] [address] [address] Donis Mancini EGFR-AF BAHRAINI >60 Normal >=60 [facility] Comment on above: Performed By: #### C T/NGNA #### [facility] [address] [place] [address] Dr. Donis Mancini EGFR-NON AF BAHRAINI >60 Normal >=[address] [facility] Comment on above: Performed By: #### C T/NGNA #### [facility] [address] [place] [address] [address] Donis Mancini Globulin (S) [Mass/Vol] 4.2 g/dL Normal [facility] Comment on above: Performed By: #### C T/NGNA #### [facility] [address] [place] [address] [address] Donis Mancini Glucose [Mass/Vol] 95 mg/dL Normal 74-106 [facility] Comment on above: Performed By: #### C T/NGNA #### [facility] [address] [place] [address] Dr. Donis Mancini Potassium [Moles/Vol] 3.8 mmol/L Normal 3.5-5.1 [facility] Comment on above: Performed By: #### C T/NGNA #### [facility] [address] [place] [address] Dr. Donis Mancini Protein [Mass/Vol] 6.9 g/dL Normal 6.4-8.2 [facility] Comment on above: Performed By: #### C T/NGNA #### [address] [facility] [address] [place] [address] Dr. Donis Mancini Sodium [Moles/Vol] 136 mmol/L Normal 136-145 [facility] Comment on above: Performed By: #### C T/NGNA #### [facility] [address] [place] [address] Dr. Donis Mancini Urea nitrogen [Mass/Vol] 10.0 mg/dL Normal 7.0-18.0 [facility] Comment on above: Performed By: #### C T/NGNA #### [facility] [address] [place] [address] Dr. Donis Mancini Urea nitrogen/Creatinine [Mass ratio] 23.3 mg/mg Normal [facility] Comment on above: Performed By: #### C T/NGNA #### [facility] [address] [place] [address] Dr. Donis Mancini URIC ACID SERUMon 08-09-2022 Urate [Mass/Vol] 3.6 mg/dL Normal 2.6-6.0 [facility] Comment on above: Performed By: #### C T/NGNA #### [facility] [address] [place] [address] Dr. Donis Mancini CBC AUTO DIFFon 08-07-2022 BASO # 0.0 103/ul Normal 0.0-0.1 [facility] Comment on above: Performed By: #### U AMIC #### [facility] [address] [place] [address] Dr. Donis Mancini Basophils/100 WBC (Bld) 0.2 % Normal 0.2-2.0 [facility] Comment on above: Performed By: #### U AMIC #### [facility] [address] [place] [address] Dr. Donis Manciin EO # 0.2 103/ul Normal 0.0-0.7 [facility] Comment on above: Performed By: #### U AMIC #### [facility] [address] [place] [address] Dr. Donis Mancini Eosinophils/100 WBC (Bld) 1.8 % Normal 0.9-7.0 [facility] Comment on above: Performed By: #### U AMIC #### [facility] [address] [place] [address] Dr. Donis Mancini Erythrocyte distribution width (RBC) [Ratio] 12.3 % Normal 11.0-15.0 [facility] Comment on above: Performed By: #### U AMIC #### [facility] [address] [place] [address] Dr. Donis Mancini Hematocrit (Bld) [Volume fraction] 45.7 % Normal 36.0-48.0 [facility] Comment on above: Performed By: #### U AMIC #### [facility] [address] [place] [address] Dr. Donis Mancini Hemoglobin (Bld) [Mass/Vol] 16.0 g/dL Normal 12.0-16.0 [facility] Comment on above: Performed By: #### U AMIC #### [facility] [address] [place] [address] Dr. Donis Mancini IG # 0.07 10e3/ul Critically high 0.00-0.03 [facility] Comment on above: Performed By: #### U AMIC #### [facility] [address] [place] [address] Dr. Donis Mancini IG % 0.5 % Normal 0.0-0.5 [facility] Comment on above: Performed By: #### U AMIC #### [facility] [address] [place] [address] Dr. Donis Mancini LYMPH # 1.5 103/ul Normal 1.2-3.8 [facility] Comment on above: Performed By: #### U AMIC #### [facility] [address] [place] [address] Dr. Donis Mancini Lymphocytes/100 WBC (Bld) 11.2 % Critically low 20.5-60.0 [facility] Comment on above: Performed By: #### U AMIC #### [facility] [address] [place] [address] Dr. Donis Mancini MANUAL DIFF REQ NO Normal [facility] Comment on above: Performed By: #### U AMIC #### [facility] [address] [place] [address] Dr. Donis Mancini MCH (RBC) [Entitic mass] 32.0 pg Normal 26.7-34.0 [facility] Comment on above: Performed By: #### U AMIC #### [facility] [address] [place] [address] Dr. Donis Mancini MCHC (RBC) [Mass/Vol] 35.0 g/dL Normal 29.9-35.[address] [facility] Comment on above: Performed By: #### U AMIC #### [facility] [address] [place] [address] Dr. Donis Mancini MCV (RBC) [Entitic vol] 91.4 fL Normal 81.0-99.0 [facility] Comment on above: Performed By: #### U AMIC #### [facility] [address] [place] [address] Dr. Donis Mancini MONO # 0.9 103/ul Critically high 0.3-0.8 [facility] Comment on above: Performed By: #### U AMIC #### [facility] [address] [place] [address] Dr. Donis Mancini Monocytes/100 WBC (Bld) 6.3 % Normal 1.7-12.0 [facility] Comment on above: Performed By: #### U AMIC #### [facility] [address] [place] [address] Dr. Donis Mancini NEUT # 10.9 103/ul Critically high 1.4-6.5 [facility] Comment on above: Performed By: #### U AMIC #### [facility] [address] [address] [address] Donis Mancini Neutrophils/100 WBC (Bld) 80.0 % Critically high 43.0-75.0 [facility] Comment on above: Performed By: #### U AMIC #### [facility] [address] [address] [address] Donis Mancini Platelet mean volume (Bld) [Entitic vol] 11.5 fL Normal 9.5-13.5 [facility] Comment on above: Performed By: #### U AMIC #### [facility] [address] [address] [address] Donis Mancini PLT 182 103/ul Normal 150-450 [facility] Comment on above: Performed By: #### U AMIC #### [facility] [address] [address] [address] Donis Mancini RBC 5.00 106/ul Normal 4.20-5.40 [facility] Comment on above: Performed By: #### U AMIC #### [facility] [address] [address] [address] Donis Mancini WBC 13.6 103/ul Critically high 4.0-11.0 [facility] Comment on above: Performed By: #### U AMIC #### [facility] [address] [address] [address] Donis Mancini LDHon 08-07-2022 LDH 171 U/L Normal 81-234 [facility] Comment on above: Performed By: #### C MP, URIC, LDH ####[facility] [address] [place] [address]Dr. Donis Mancini PROF 14(COMP METB)on 022 Albumin [Mass/Vol] 2.9 g/dL Critically low 3.4-5.0 [facility] Comment on above: Performed By: #### C MP, URIC, LDH ####[facility] [address] [place] [address]Dr. Donis Mancini Albumin/Globulin [Mass ratio] 0.6 {ratio} Normal [facility] Comment on above: Performed By: #### C MP, URIC, LDH ####[facility] [address] [place] [place] [address]Dr. Donis Mancini ALP [Catalytic activity/Vol] 192 U/L Critically high 46-116 [facility] Comment on above: Performed By: #### C MP, URIC, LDH ####[facility] [address] [place] [address]Dr. Donis Mancini ALT [Catalytic activity/Vol] 23 U/L Normal 14-59 [facility] Comment on above: Performed By: #### C MP, URIC, LDH ####[facility] [address] [place] [address]Dr. Laceyjavi Mancini Anion gap [Moles/Vol] 14.4 mmol/L Normal [facility] Comment on above: Performed By: #### C MP, URIC, LDH ####[facility] [address] [place], [place] [address]Dr. Donis Mancini AST [Catalytic activity/Vol] 23 U/L Normal 15-37 [facility] Comment on above: Performed By: #### C MP, URIC, LDH ####[facility] [address] [place] [address]Dr. Donis Mancini Bilirubin [Mass/Vol] 0.2 mg/dL Normal 0.2-1.0 [facility] Comment on above: Performed By: #### C MP, URIC, LDH ####[facility] [address] [place] [address]Dr. Donis Mancini Calcium [Mass/Vol] 9.4 mg/dL Normal 8.5-10.1 [facility] Comment on above: Performed By: #### C MP, URIC, LDH ####[facility] [address] [place] [address]Dr. Laceyjavi Mancini Chloride [Moles/Vol] 104 mmol/L Normal 98-107 [facility] Comment on above: Performed By: #### C MP, URIC, LDH ####[facility] [address] [place] [id number]. Donis Mancnii CO2 [Moles/Vol] 21.7 mmol/L Normal 21.0-32.0 [facility] Comment on above: Performed By: #### C MP, URIC, LDH ####[facility] [address] [place] [id number]. Donis Mancini Creatinine [Mass/Vol] 0.46 mg/dL Critically low 0.55-1.[address] [facility] Comment on above: Performed By: #### C MP, URIC, LDH ####[facility] [address] [place] [id number]. Donis Mancini EGFR-AF BAHRAINI >60 Normal >=60 [facility] Comment on above: Performed By: #### C MP, URIC, LDH ####[facility] [address] [place] [address]Dr. Donis Mancini EGFR-NON AF BAHRAINI >60 Normal >=[address] [facility] Comment on above: Performed By: #### C MP, URIC, LDH ####[facility] [address] [place] [address]Dr. Donis Mancini Globulin (S) [Mass/Vol] 4.6 g/dL Normal [facility] Comment on above: Performed By: #### C MP, URIC, LDH ####[facility] [address] [place] [id number]. Donis Mancini Glucose [Mass/Vol] 89 mg/dL Normal 74-106 [facility] Comment on above: Performed By: #### C MP, URIC, LDH ####[facility] [address] [place] [address]Dr. Donis Mancini Potassium [Moles/Vol] 4.1 mmol/L Normal 3.5-5.[address] [facility] Comment on above: Performed By: #### C MP, URIC, LDH ####[facility] [address] [place] [address]Dr. Donis Live Protein [Mass/Vol] 7.5 g/dL Normal 6.4-8.2 [facility] Comment on above: Performed By: #### C MP, URIC, LDH ####[facility] [address] [place] [address]DrGene Mancini Sodium [Moles/Vol] 136 mmol/L Normal 136-145 [facility] Comment on above: Performed By: #### C MP, URIC, LDH ####[facility] [address] [place] [address]DrGene Mancini Urea nitrogen [Mass/Vol] 8.0 mg/dL Normal 7.0-18.0 [facility] Comment on above: Performed By: #### C MP, URIC, LDH ####[facility] [address] [place] [address]DrGene Mancini Urea nitrogen/Creatinine [Mass ratio] 17.4 mg/mg Normal [facility] Comment on above: Performed By: #### C MP, URIC, LDH ####[facility] [address] [place] [address]Dr. Donis Mancini PROTIMEon 08-07-2022 INR Coag (PPP) [Relative time] {INR} Normal [facility] Comment on above: Performed By: #### U AMIC #### [facility] [address] [place] [address] Dr. Donis Mancini INR GUIDELINES SEE BELOW Normal [facility] Comment on above: Result Comment: NICCI RED INR: 2.0 - 3.0 CONDITIONS NOT LISTED BELOW 2.5 - 3.5 FOR PROSTHETIC HEART VALVE REPLACEMENT 2.5 - 3.5 RECURRENT THROMBOSIS Performed By: #### U AMIC #### [facility] [address] [address] [address] Donis Mancini PT Coag (PPP) [Time] 9.8 s Normal 9.0-11.6 [facility] Comment on above: Performed By: #### U AMIC #### [facility] [address] [address] [address] Donis Mancini PTTon 08-07-2022 aPTT Coag (Bld) [Time] 28.5 s Normal 22.3-36.2 [facility] Comment on above: Performed By: #### U AMIC #### [facility] [address] [address] [address] Donis Mancini UA (CLEAN/CATCH) SALES TRAINEE/MICRO I F IND.on 08-07-2022 Bilirubin Ql (U) Negative Normal NEGATIVE [facility] Comment on above: Performed By: #### U AMIC #### [facility] [address] [place] [address] Dr. Donis Mancini Clarity (U) CLEAR Normal CLEAR [facility] Comment on above: Performed By: #### U AMIC #### [facility] [address] [address] [address] Donis Mancini Color (U) LT. YELLOW Normal YELLOW [facility] Comment on above: Performed By: #### U AMIC #### [facility] [address] [place] [address] Dr. Donis Mancini Glucose Ql (U) Negative Normal NEGATIVE [facility] Comment on above: Performed By: #### U AMIC #### [facility] [address] [place] [address] Dr. Donis Mancini Hemoglobin Ql (U) Negative Normal NEGATIVE [facility] Comment on above: Performed By: #### U AMIC #### [facility] [address] [place] [address] Dr. Donis Mancini Ketones Ql (U) Negative Normal NEGATIVE [facility] Comment on above: Performed By: #### U AMIC #### [facility] [address] [address] [address] Donis Mancini LEUKOCYTES Negative Normal NEGATIVE [facility] Comment on above: Performed By: #### U AMIC #### [facility] [address] [place] [address] Dr. Donis Mancini Nitrite Ql (U) Negative Normal NEGATIVE [facility] Comment on above: Performed By: #### U AMIC #### [facility] [address] [place] [address] Dr. Donis Mancini pH (U) 7.0 [pH] Normal 5-9 [facility] Comment on above: Performed By: #### U AMIC #### [facility] [address] [address] [address] Donis Mancini SPEC GRAVITY <=1.005 Abnormal 1.005-<=1.02 5 [facility] Comment on above: Performed By: #### U AMIC #### [facility] [address] [address] [address] Donis Mancini UA PROTEIN Negative Normal NEGATIVE/ TRACE [facility] Comment on above: Performed By: #### U AMIC #### [facility] [address] [address] [address] Donis Mancini UR MICRO IND NOT INDICATED Normal [facility] Comment on above: Performed By: #### U AMIC #### [facility] [address] [address] [address] Donis Mancini Urobilinogen Qn (U) 0.2 {Sarah'U}/dL Normal 0.2 - 1. 0 [facility] Comment on above: Performed By: #### U AMIC #### [facility] [address] [address] [address] Donis Mancini URIC ACID SERUMon 08-07-2022 Urate [Mass/Vol] 3.8 mg/dL Normal 2.6-6.0 [facility] Comment on above: Performed By: #### C MP, URIC, LDH ####[facility] [address] [place] [address]Dr. Donis Mancini URINE T PROTEIN CREAT RATIOo n 08-07-2022 UR TOTAL PROTEIN <6.0 Normal <=12.0 [facility] Comment on above: Performed By: #### C T/NGNA #### [facility] [address] [address] [address] Donis Mancini URINE CREAT 13.45 mg/dL Critically low 20.00-300.00 [facility] Comment on above: Performed By: #### C T/NGNA #### [facility] [address] [address] [address] Donis Mancini US PREG BIOPHY W [...] COCO STERN Date: 2022-08-01 08:[address] [facility] CHLAMYDIA/GONOCOCCUS INESSA (SW AB/URINE/PAPon 07-31-2022 Chlamydia trachomatis, INESSA Negative Normal Negative [facility] Comment on above: Performed By: #### C T/NGNA #### [facility] [address] [place] [address] Dr. Donis Mancini Neisseria gonorrhoeae, INESSA Negative Normal Negative [facility] Comment on above: Performed By: #### C T/NGNA #### [facility] [address] [address] [address] Donis Mancini VAGINITIS/VAGINOSIS DNA PROB Domenic 07-31-2022 Simeon species Negative Normal Negative [facility] Comment on above: Performed By: #### V AGINT ####[facility] [address] [place] [address]Dr. Donis Mancini Gardnerella vaginalis Negative Normal Negative [facility] Comment on above: Performed By: #### V AGINT ####[facility] [address] [place] [address]Dr. Donis Mancini Trichomonas vaginalis Negative Normal Negative [facility] Comment on above: Performed By: #### V AGINT ####[facility] [address] [place], [place] [address]Dr. Donis Mancini GROUP B STREP CULTUREon S. agalactiae Ag Ql (Unsp spec) Culture Observations: NEGATIVE FOR GROUP B STREPTOCOCCUS. Normal [facility] Comment on above: Performed By: #### G BSCX #### [facility] [address] [address] [address] Donis Mancini US PREG BIOPHY W [...] COCO STERN Date: 2022-07-25 09:[address] [facility] US PREG GROWTHon 07-11-2022 US PREG [...] ESTEFANY BENNETT Date: 2022-07-11 19:[address] [facility] Covid-19 PCR (CVDTBH)on 06-26 SARS-CoV-2 (COVID-19) RNA INESSA+probe Ql (Unsp spec) Not detected Normal NOT DETECTED [facility] Comment on above: Result Comment: When [...] for this test is supported by the [place] [employer] and Human Service's declaration that [...] used). Performed By: #### C T/NGNA #### [facility] [address] [place] [address] Dr. Donis Mancini GTT 3 HR PREGon 06-03-2022 Glucose [Mass/Vol] 94 mg/dL Normal 74-106 [facility] Comment on above: Performed By: #### U AMIC #### [facility] [address] [place] [address] Dr. Donis Mancini Glucose [Mass/Vol] 147 mg/dL Normal [facility] Comment on above: Performed By: #### U AMIC #### [facility] [address] [place] [address] Dr. Donis Mancini Glucose [Mass/Vol] 159 mg/dL Normal [facility] Comment on above: Performed By: #### U AMIC #### [facility] [address] [place] [address] Dr. Donis Mancini Glucose [Mass/Vol] 151 mg/dL Normal [facility] Comment on above: Performed By: #### U AMIC #### [facility] [address] [place] [address] Dr. Donis Mancini GLUCOSE - 1HRon 05-21-2022 Glucose [Mass/Vol] 141 mg/dL Critically high 74-106 [facility] Comment on above: Performed By: #### U AMIC #### [facility] [address] [address] [address] Donis Mancini HEMOGRAM AND PLATELon 2021 Hematocrit (Bld) [Volume fraction] 39.1 % Normal 36.0-48.0 [facility] Comment on above: Performed By: #### U AMIC #### [facility] [address] [place] [address] Dr. Donis Mancini Hemoglobin (Bld) [Mass/Vol] 13.1 g/dL Normal 12.0-16.[address] [facility] Comment on above: Performed By: #### U AMIC #### [facility] [address] [place] [address] Dr. Donis Mancini MCH (RBC) [Entitic mass] 32.3 pg Normal 26.7-34.0 [facility] Comment on above: Performed By: #### U AMIC #### [facility] [address] [place] [address] Dr. Donis Mancini MCHC (RBC) [Mass/Vol] 33.5 g/dL Normal 29.9-35.[address] [facility] Comment on above: Performed By: #### U AMIC #### [facility] [address] [place] [address] Dr. Donis Mancini MCV (RBC) [Entitic vol] 96.5 fL Normal 81.0-99.0 [facility] Comment on above: Performed By: #### U AMIC #### [facility] [address] [place] [address] Dr. Donis Mancini PLT 220 103/ul Normal 150-[address] [facility] Comment on above: Performed By: #### U AMIC #### [facility] [address] [place] [address] Dr. Donis Mancini RBC 4.05 106/ul Critically low 4.20-5.40 [facility] Comment on above: Performed By: #### U AMIC #### [facility] [address] [place] [address] Dr. Donis Mancini WBC 12.8 103/ul Critically high 4.0-11.0 [facility] Comment on above: Performed By: #### U AMIC #### [facility] [address] [address] [address] Donis Mancini US PREG BIOPHYSICAL NO [...] ESTEFANY BENNETT Date: 2022-05-11 06:[address] [facility] CULTURE URINEon 05-10-2022 CULTURE URINE Culture Observations: MODERATE GROWTH OF MIXED GENITAL RAMBO. NO POTENTIAL PATHOGENS SEEN. Normal [facility] Comment on above: Performed By: #### U RCX #### [facility] [address] [address] [address] Donis Mancini UA RANDOM W/MICROSCOPICon BACTERIA LARGE Abnormal NONE SEEN [facility] Comment on above: Performed By: #### U AMIC ####[facility] [address] [place] [address]Dr. Donis Mancini Bilirubin Ql (U) Negative Normal NEGATIVE [facility] Comment on above: Performed By: #### U AMIC ####[facility] [address] [place] [address]Dr. Donis Mancini CAST NONE SEEN Normal NONE SEEN [facility] Comment on above: Performed By: #### U AMIC ####[facility] [address] [place] [address]Dr. Donis Mancini Clarity (U) CLEAR Normal CLEAR [facility] Comment on above: Performed By: #### U AMIC ####[facility] [address] [place] [address]Dr. Donis Mancini Color (U) YELLOW Normal YELLOW [facility] Comment on above: Performed By: #### U AMIC ####[facility] [address] [place] [address]Dr. Donis Mancini Crystals LM Nom (Urine sed) NONE SEEN Normal NONE SEEN [facility] Comment on above: Performed By: #### U AMIC ####[facility] [address] [place] [address]Dr. Donis Mancini Epithelial cells LM Ql (Urine sed) MODERATE Abnormal NONE SEEN /RARE [facility] Comment on above: Performed By: #### U AMIC ####[facility] [address] [place] [address]Dr. Donis Mancini Glucose Ql (U) 250 mg/dl Abnormal NEGATIVE [facility] Comment on above: Performed By: #### U AMIC ####[facility] [address] [place] [address]Dr. Donis Mancini Hemoglobin Ql (U) TRACE-INTACT Abnormal NEGATIVE [facility] Comment on above: Performed By: #### U AMIC ####[facility] [address] [place], [place] [address]Dr. Donis Mancini Ketones Ql (U) Negative Normal NEGATIVE [facility] Comment on above: Performed By: #### U AMIC ####[facility] [address] [place], [place] [address]Dr. Donis Mancini LEUKOCYTES LARGE Abnormal NEGATIVE [facility] Comment on above: Performed By: #### U AMIC ####[facility] [address] [place], [place] [address]Dr. Donis Mancini MUCOUS NONE SEEN Normal NONE SEEN [facility] Comment on above: Performed By: #### U AMIC ####[facility] [address] [place] [address]Dr. Donis Mancini Nitrite Ql (U) Negative Normal NEGATIVE [facility] Comment on above: Performed By: #### U AMIC ####[facility] [address] [place] [address]Dr. Donis Mancini pH (U) 6.0 [pH] Normal 5-[address] [facility] Comment on above: Performed By: #### U AMIC ####[facility] [address] [place] [id number]. Donis Mancini RBC 2-5 Abnormal 0-[address] [facility] Comment on above: Performed By: #### U AMIC ####[facility] [address] [place] [address]Dr. Donis Mancini SPEC GRAVITY <=1.005 Abnormal 1.005-<=1.[address] [facility] Comment on above: Performed By: #### U AMIC ####[facility] [address] [place] [address]Dr. Donis Live UA PROTEIN Negative Normal NEGATIVE/ TRACE [facility] Comment on above: Performed By: #### U AMIC ####[facility] [address] [place] [address]Dr. Donis Live Urobilinogen Qn (U) 0.2 {Sarah'U}/dL Normal 0.2 - 1. [address] [facility] Comment on above: Performed By: #### U AMIC ####[facility] [address] [place], [place] [address]Dr. Donis Live WBC 10-20 Abnormal NONE SEEN [facility] Comment on above: Performed By: #### U AMIC ####[facility] [address] [place] [address]Dr. Donis Live CULTURE URINEon 04-27-2022 CULTURE URINE Culture Observations: LIGHT GROWTH OF MIXED GENITAL RAMBO. NO POTENTIAL PATHOGENS SEEN. Normal [facility] Comment on above: Performed By: #### U RCX ####[facility] [address] [place] [address]Dr. Laceyjavi Mancini UA (CLEAN/CATCH) SALES TRAINEE/MICRO I F IND.on 04-27-2022 Bilirubin Ql (U) Negative Normal NEGATIVE [facility] Comment on above: Performed By: #### U ACSIND UMICRO ####[facility] [address] [place] [address]Dr. Donis Mancini Clarity (U) CLEAR Normal CLEAR [facility] Comment on above: Performed By: #### U ACSIND UMICRO ####[facility] Rmabpskqvf[address] [place] [address]Dr. Donis Mancini Color (U) LT. YELLOW Normal YELLOW [facility] Comment on above: Performed By: #### U ACSWENDY UMICRO ####[facility] Cpeheefzmq[address] [place] [address]Dr. Laceyjavi Live Glucose Ql (U) Negative Normal NEGATIVE [facility] Comment on above: Performed By: #### U ACSWENDY UMICRO ####[facility] Dmgbnhtdyk3222 [place] [address]Dr. Donis Mancini Hemoglobin Ql (U) Negative Normal NEGATIVE [facility] Comment on above: Performed By: #### U ACSWENDY UMICRO ####[facility] Subtxykczk[address] [place] [address]Dr. Donis Mancini Ketones Ql (U) Negative Normal NEGATIVE [facility] Comment on above: Performed By: #### U ACSWENDY ICRO ####[facility] [address] [place], [place] [address]Dr. Donis Mancini LEUKOCYTES SMALL Abnormal NEGATIVE [facility] Comment on above: Performed By: #### U ACSWENDY ICRO ####[facility] [address] [place], [place] [address]Dr. Donis Mancini Nitrite Ql (U) Negative Normal NEGATIVE [facility] Comment on above: Performed By: #### U ACSWENDY UMICRO ####[facility] Tpimvhbpkf[address] [place] [address]Dr. Donis Mancini pH (U) 7.0 [pH] Normal 5-[address] [facility] Comment on above: Performed By: #### U ACSWENDY UMICRO ####[facility] Cbjvyrznsa[address] [place] [address]Dr. Donis Mancini SPEC GRAVITY 1.015 Normal 1.005-<=1.02 5 [facility] Comment on above: Performed By: #### U ACSWENDY UMICRO ####[facility] Vjuceqmbwt[address] [place] [address]Dr. Donis Mancini UA PROTEIN Negative Normal NEGATIVE/ TRACE [facility] Comment on above: Performed By: #### U ACSIND, UMICRO ####[facility] Gaowpancem[address] [place] [address]Dr. Donis Mancini UR MICRO IND INDICATED Normal [facility] Comment on above: Performed By: #### U ACSIND, UMICRO ####[facility] Agmhwocfji[address]39 [place] [address]Dr. Donis Mancini Urobilinogen Qn (U) 0.2 {Sarah'U}/dL Normal 0.2 - 1. [address] [facility] Comment on above: Performed By: #### U ACSWENDY, UMICRO ####[facility] Dmxkkldsjr[address] [place] [address]Dr. Donis Mancini URINE MICROSCOPIC ONLYon BACTERIA MODERATE Abnormal NONE SEEN [facility] Comment on above: Performed By: #### U ACSIND, UMICRO ####[facility] Jvvmxdlwta3616 [place] [address]Dr. Donis Mancini Bacteria identified Cx Nom (U) INDICATED Normal [facility] Comment on above: Performed By: #### U ACSWENDY, UMICRO ####[facility] Uynclislte[address] [place] [address]Dr. Donis Mancini CAST NONE SEEN Normal NONE SEEN [facility] Comment on above: Performed By: #### U ACSIND, UMICRO ####[facility] Jtauikcqlp[address]74 [place] [address]Dr. Donis Mancini Crystals LM Nom (Urine sed) NONE SEEN Normal NONE SEEN [facility] Comment on above: Performed By: #### U ACSIND, UMICRO ####[facility] Dapmynqgty74[address] [place] [address]Dr. Donis Mancini Epithelial cells LM Ql (Urine sed) MODERATE Abnormal NONE SEEN /RARE [facility] Comment on above: Performed By: #### U ACSIND, UMICRO ####[facility] Iltfdfuzbt[address] [place] [address]Dr. Donis Mancini MUCOUS NONE SEEN Normal NONE SEEN [facility] Comment on above: Performed By: #### U DONNA DAMON ####[facility] [address]jh[address] [place], [place] [address]Yo. Donis Mancini RBC NONE SEEN Abnormal 0-[address] [facility] Comment on above: Performed By: #### U DONNA DAMON ####[facility] Jmyyypqlhi[address] [place], [place] [address]Jn. Donis Mancini WBC 2-5 Abnormal NONE SEEN [facility] Comment on above: Performed By: #### U DONNA DAMON ####[facility] Irovvvfwjy26[address] [place], [place] [address]Ke. Donis Mancini US KIDNEYSon 04-27-2022 US KIDNEYS [...] ANDREAS AN Date: 2022-04-27 17:[address] [facility] CULTURE URINEon 04-16-2022 CULTURE URINE Isolate [...] Trimethoprim/Sulfame thoxazole <=20 S F Normal [facility] Comment on above: Performed By: #### U RCX #### [facility] [address] [place] [address] [address] [address] Donis Mancini US PREG ANATOMY SINGLEon [...] ESTEFANY BENNETT Date: 2022-04-12 22:[address] [facility] UA RANDOM W/MICROSCOPICon BACTERIA SMALL Abnormal NONE SEEN [facility] Comment on above: Performed By: #### U AMIC #### [facility] [address] [place] [address] [address] Donis Mancini Bilirubin Ql (U) Negative Normal NEGATIVE [facility] Comment on above: Performed By: #### U AMIC #### [facility] [address] [place] [address] [address] Donis Mancini CAST NONE SEEN Normal NONE SEEN [facility] Comment on above: Performed By: #### U AMIC #### [facility] [address] [place] [address] [address] Donis Mancini Clarity (U) CLEAR Normal CLEAR [facility] Comment on above: Performed By: #### U AMIC #### [facility] [address] [place] [address] [address] Donis Mancini Color (U) LT. YELLOW Normal YELLOW [facility] Comment on above: Performed By: #### U AMIC #### [facility] [address] [place] [address] Dr. Donis Mancini Crystals LM Nom (Urine sed) NONE SEEN Normal NONE SEEN [facility] Comment on above: Performed By: #### U AMIC #### [facility] [address] [place] [address] Dr. Donis Manicni Epithelial cells LM Ql (Urine sed) FEW Abnormal NONE SEEN /RARE [facility] Comment on above: Performed By: #### U AMIC #### [facility] [address] [place] [address] Dr. Donis Mancini Glucose Ql (U) Negative Normal NEGATIVE [facility] Comment on above: Performed By: #### U AMIC #### [facility] [address] [place] [address] [address] Donis Mancini Hemoglobin Ql (U) Negative Normal NEGATIVE [facility] Comment on above: Performed By: #### U AMIC #### [facility] [address] [place] [address] [address] Donis Mancini Ketones Ql (U) Negative Normal NEGATIVE [facility] Comment on above: Performed By: #### U AMIC #### [facility] [address] [place] [address] Dr. Donis Mancini LEUKOCYTES LARGE Abnormal NEGATIVE [facility] Comment on above: Performed By: #### U AMIC #### [facility] [address] [place] [address] [address] Donis Mancini MUCOUS NONE SEEN Normal NONE SEEN [facility] Comment on above: Performed By: #### U AMIC #### [facility] [address] [place] [address] [address] Donis Mancini Nitrite Ql (U) Negative Normal NEGATIVE [facility] Comment on above: Performed By: #### U AMIC #### [facility] [address] [place] [address] Dr. Donis Mancini pH (U) 5.5 [pH] Normal 5-[address] [facility] Comment on above: Performed By: #### U AMIC #### [facility] [address] [place] [address] Dr. Donis Mancini RBC 0-2 Normal 0-2 [facility] Comment on above: Performed By: #### U AMIC #### [facility] [address] [place] [address] Dr. Donis Mancini SPEC GRAVITY <=1.005 Abnormal 1.005-<=1.02 5 [facility] Comment on above: Performed By: #### U AMIC #### [facility] [address] [place] [address] Dr. Donis Mancini UA PROTEIN Negative Normal NEGATIVE/ TRACE [facility] Comment on above: Performed By: #### U AMIC #### [facility] [address] [place] [address] Dr. Donis Mancini Urobilinogen Qn (U) 0.2 {Sarah'U}/dL Normal 0.2 - 1. 0 [facility] Comment on above: Performed By: #### U AMIC #### [facility] [address] [place] [address] Dr. Donis Mancini WBC 5-10 Abnormal NONE SEEN [facility] Comment on above: Performed By: #### U AMIC #### [facility] [address] [place] [address] Dr. Donis Mancini HEP B SURFACE ANTIGEN SCREEN on 01-23-2022 HBsAg Screen Negative Normal Negative [facility] Comment on above: Performed By: #### U AMIC #### [facility] [address] [place], [place] [address] Dr. Donis Mancini HEPATITIS C VIRUS AB W/ REFL EX QUANTon 01-23-2022 HCV AB 0.1 s/co ratio Normal 0.0-0.9 [facility] Comment on above: Performed By: #### H CVPCRR ####[facility] [address]zsh[address] [place] [id number]. Donis Mancini Interpretation: Comment Normal [facility] Comment on above: Result Comment: Nega tive Not infected with HCV, unless recent infection is suspected or other evidence exists to indicate HCV infection. Performed By: #### H CVPCRR ####[facility] [address] [place] [id number]. Donis Mancini HIV 1 AND 2 WITH REFLEXon HIV Screen 4th Generation wRfx Non-Reactive Normal Non Reactive [facility] Comment on above: Result Comment: HIV Negative HIV-1/HIV-2 antibodies and HIV-1 p24 antigen were NOT detected. There is no laboratory evidence of HIV infection. Performed By: #### H IV12 ####[facility] Bhgeckckfj[address] [place] [id number]. Donis Mancini RPR QUANTon 01-23-2022 Rapid Plasma Reagin, Quant Non-Reactive Normal NonRea<1:[address] [facility] Comment on above: Result Comment: Plea se Note: This test does not meet current guidelines for screening and diagnosis of syphilis. This test is intended for following treatment response in patients being treated for syphilis infection. To screen for syphilis infection, a reflex cascade that includes both RPR and a treponema-specific assay should be utilized, such as Treponema pallidum (Syphilis) Screening [place] (140254) or Rapid Plasma Reagin (RPR) Test With Reflex to Quantitative RPR and Confirmatory Treponema pallidum Antibodies (204067). Performed By: #### R PRQ ####[facility] [address] [place] [address]Dr. Donis Mancini RUBELLA AB IGGon 01-23-2022 Rubella Antibodies, IgG 1.60 index Normal Immune >0.99 [facility] Comment on above: Result Comment: Non- immune <0.90 Equivocal 0.90 - 0.99 Immune >0.99 Performed By: #### U AMIC #### [facility] [address] [place] [address] [address] Donis Mancini CBC AUTO DIFFon 01-22-2022 BASO # 0.1 103/ul Normal 0.0-0.1 [facility] Comment on above: Performed By: #### U AMIC #### [facility] [address] [place] [address] Dr. Donis Mancini Basophils/100 WBC (Bld) 0.5 % Normal 0.2-2.0 [facility] Comment on above: Performed By: #### U AMIC #### [facility] [address] [place] [address] Dr. Donis Mancini EO # 0.6 103/ul Normal 0.0-0.7 [facility] Comment on above: Performed By: #### U AMIC #### [facility] [address] [place] [address] Dr. Donis Mancini Eosinophils/100 WBC (Bld) 5.1 % Normal 0.9-7.0 [facility] Comment on above: Performed By: #### U AMIC #### [facility] [address] [place] [address] Dr. Donis Mancini Erythrocyte distribution width (RBC) [Ratio] 12.0 % Normal 11.0-15.0 [facility] Comment on above: Performed By: #### U AMIC #### [facility] [address] [place] [address] Dr. Donis Mancini Hematocrit (Bld) [Volume fraction] 45.8 % Normal 36.0-48.0 [facility] Comment on above: Performed By: #### U AMIC #### [facility] [address] [place] [address] Dr. Donis Mancini Hemoglobin (Bld) [Mass/Vol] 15.3 g/dL Normal 12.0-16.0 [facility] Comment on above: Performed By: #### U AMIC #### [facility] [address] [place] [address] [address] Donis Mancini IG # 0.03 10e3/ul Normal 0.00-0.03 [facility] Comment on above: Performed By: #### U AMIC #### [facility] [address] [place] [address] [address] Donis Mancini IG % 0.3 % Normal 0.0-0.5 [facility] Comment on above: Performed By: #### U AMIC #### [facility] [address] [place] [address] [address] Donis Mancini LYMPH # 1.7 103/ul Normal 1.2-3.8 [facility] Comment on above: Performed By: #### U AMIC #### [facility] [address] [place] [address] Dr. Donis Mancini Lymphocytes/100 WBC (Bld) 15.9 % Critically low 20.5-60.0 [facility] Comment on above: Performed By: #### U AMIC #### [facility] [address] [place] [address] [address] Donis Mancini MANUAL DIFF REQ NO Normal [facility] Comment on above: Performed By: #### U AMIC #### [facility] [address] [place] [address] [address] Donis Mancini MCH (RBC) [Entitic mass] 31.5 pg Normal 26.7-34.0 [facility] Comment on above: Performed By: #### U AMIC #### [facility] [address] [place] [address] [address] Donis Mancini MCHC (RBC) [Mass/Vol] 33.4 g/dL Normal 29.9-35.2 [facility] Comment on above: Performed By: #### U AMIC #### [facility] [address] [place] [address] [address] Donis Mancini MCV (RBC) [Entitic vol] 94.2 fL Normal 81.0-99.0 [facility] Comment on above: Performed By: #### U AMIC #### [facility] [address] [place] [address] [address] Donis Mancini MONO # 0.6 103/ul Normal 0.3-0.8 [facility] Comment on above: Performed By: #### U AMIC #### [facility] [address] [place] [address] [address] Donis Mancini Monocytes/100 WBC (Bld) 5.8 % Normal 1.7-12.0 [facility] Comment on above: Performed By: #### U AMIC #### [facility] [address] [place] [address] [address] Donis Mancini NEUT # 7.8 103/ul Critically high 1.4-6.5 [facility] Comment on above: Performed By: #### U AMIC #### [facility] [address] [place] [address] [address] Donis Mancini Neutrophils/100 WBC (Bld) 72.4 % Normal 43.0-75.0 [facility] Comment on above: Performed By: #### U AMIC #### [facility] [address] [place] [address] [address] Donis Mancini Platelet mean volume (Bld) [Entitic vol] 9.9 fL Normal 9.5-13.5 [facility] Comment on above: Performed By: #### U AMIC #### [facility] [address] [place] [address] [address] Donis Mancini PLT 281 103/ul Normal 150-[address] [facility] Comment on above: Performed By: #### U AMIC #### [facility] [address] [place] [address] [address] Donis Mancini RBC 4.86 106/ul Normal 4.20-5.[address] [facility] Comment on above: Performed By: #### U AMIC #### [facility] [address] [place] [address] [address] Donis Mancini WBC 10.8 103/ul Normal 4.0-11.[address] [facility] Comment on above: Performed By: #### U AMIC #### [facility] [address] [place] [address] [address] Donis Mancini CULTURE URINEon 01-22-2022 CULTURE URINE Culture Observations: LIGHT GROWTH OF MIXED GENITAL RAMBO. NO POTENTIAL PATHOGENS SEEN. Normal [facility] Comment on above: Performed By: #### U RCX #### [facility] [address] [place] [address] Dr. Donis Mancini GLYCOHEMOGLOBIN A1Con 2021 ADA RECOMMENDATION SEE BELOW Normal [facility] Comment on above: Result Comment: ADA RECOMMENDED LIMIT 4.0 - 6.0 ADA THERAPEUTIC TARGET < 7.0 ACTION SUGGESTED > 7.0 Performed By: #### A 1C ####[facility] [address] [place], [place] [address]DrGene Mancini Glucose [Mass/Vol] 100 mg/dL Normal [facility] Comment on above: Performed By: #### A 1C ####[facility] [address] [place] [address]DrGene Mancini HbA1c (Bld) [Mass fraction] 5.1 % Normal 4.5-6.[address] [facility] Comment on above: Performed By: #### A 1C ####[facility] [address] [place] [address]Dr. Donis Mancini SEAN BOX TEST PT SEND OUTo n 01-22-2022 SENT TO REF LAB 01/22/2022 Normal [facility] Comment on above: Performed By: #### N BOX ####[facility] [address] [place], [place] [address]Dr. Donis Mancini TYPE AND SCREENon 01-22-2022 TYPE AND SCREEN Negative Normal [facility] Comment on above: Performed By: #### T NS #### [facility] [address] [place] [address] Dr. Donis Mancini US PREG TVon 01-17-2022 [...] by: COCO STERN Date: 2022-01-17 09:34 Normal [facility] Provider Letteron 04-06-2021 Provider Letter April 06, 2021 Dear Vimal, We have been trying to reach you with no success. It is important that you return our call regarding your appointment upon receiving this letter. Also, at the time of your call, please provide us with your current information. Thank you for your prompt attention to this matter. Sincerely, [facility] [address] [address] Normal [facility] Ambulatory Clinical Summaryo n 03-10-2021 Ambulatory Clinical Summary {[id number]}CD:[id number] Normal [facility] Ambulatory Clinical Summaryo n 03-05-2021 Ambulatory Clinical Summary {[id number]}CD:[id number] Normal [facility] Gynecology Phone [...] only communication with the patient located at [address] [place] [address] [place] [phone], with no one else. 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 CODING DATE: 12/18/2020 FINAL [facility] STATUS: Home (Routine DC) PAYOR: Blanchard ADMIT DX: REASON FOR VISIT DX: U07.1 [...] result in slightly different terminology. Coded By: Mandy Del Rio Lou Date Saved: 12/18/2020 12:44 pm Normal [facility] Physician Orderon 12-16-2020 Physician Order [id number] #1.00CD:127 Normal [facility] Rapid COVID Antigen ([facility])on 12-16-2020 Rapid COV Int NEG Ctl Pass Normal [facility] Comment on above: Performed By: #### 2 [id number] #### [facility] [address] [place] [address] Rapid COV Int POS Ctl Pass Normal [facility] Comment on above: Performed By: #### 2 [id number] #### [facility] [address] [place] [address] SARS-CoV-2 (COVID-19) RNA INESSA+probe Ql (Unsp spec) Detected Abnormal Not Detected [facility] Comment on above: Result Comment: Left a message for callback. 12/16/2020 11:42:47 EDT Results faxed to infection control. The Video[employer] Veritor? System for Rapid Detection of SARS-CoV-2 [...] other viruses or pathogens; and, in the [facility], this test is only authorized for the duration of the declaration that circumstances exist justifying the authorization of emergency use of in vitro diagnostics for detection and/or diagnosis of the virus that causes COVID-19 under Section 564(b)(1) of the Act, 21 U.S.C. ? 360bbb-3(b)(1), unless the authorization is terminated or revoked sooner. Performed By: #### 2 [id number] #### [facility] [address] [place] [address] Employed in Healthcare Unknown Normal [facility] Comment on above: Performed By: #### 2 [id number] #### [facility] [address] [place] [address] First Test Unknown Normal [facility] Comment on above: Performed By: #### 2 [id number] #### [facility] [address] [place] [address] Hospitalized? NO Normal [facility] [place] Comment on above: Performed By: #### 2 [id number] #### [facility] [address] [place] [address] ICU NO Normal [facility] Comment on above: Performed By: #### 2 [id number] #### [facility] [address] [place] [address] ? Unknown [facility] Comment on above: Performed By: #### 2 [id number] #### [facility] [address] [place], [place] [id number] Resides in a Congregate Care Setting Unknown [facility] Comment on above: Performed By: #### 2 [id number] #### [facility] [address] [place] [address] Symptomatic as defined by [facility] YES Normal [facility] Comment on above: Performed By: #### 2 [id number] #### [facility] [address] [place] [address] Ambulatory Clinical Summaryo 11-25-2020 Ambulatory Clinical Summary {[id number]}CD:[id number] Normal [facility] Vital Signs Date Time Vital Sign Value Performing Clinician Facility 05-28-2025 10:48-0400 Body mass index (BMI) [Ratio] 32.06 kg/m2 Jose Michael DO Work Phone: [facility] 05-28-2025 10:48-0400 Body weight 82.1 kg Jose Michael DO Work Phone: [facility] 05-28-2025 10:48-0400 Diastolic blood pressure 80 mm[Hg] Jose Michael DO Work Phone: [facility] 05-28-2025 10:48-0400 Systolic blood pressure 136 mm[Hg] Jose Michael DO Work Phone: [facility] 05-22-2025 15:02-0400 Body mass index (BMI) [Ratio] 31.49 kg/m2 Jose Michael DO Work Phone: [facility] 05-22-2025 15:02-0400 Body weight 80.63 kg Jose Michael DO Work Phone: [facility] 05-22-2025 15:02-0400 Diastolic blood pressure 92 mm[Hg] Jose Michael DO Work Phone: [facility] 05-22-2025 15:02-0400 Systolic blood pressure 138 mm[Hg] Jose Michael DO Work Phone: [facility] 05-14-2025 14:59-0400 Body mass index (BMI) [Ratio] 31.35 kg/m2 Jose Michael DO Work Phone: [facility] 05-14-2025 14:59-0400 Body weight 80.29 kg Jose Michael DO Work Phone: [facility] 05-14-2025 14:59-0400 Diastolic blood pressure 90 mm[Hg] Jose Michael DO Work Phone: [facility] 05-14-2025 14:59-0400 Systolic blood pressure 140 mm[Hg] Jose Michael DO Work Phone: [facility] 05-13-2025 16:11-0400 Body weight 79.83 kg Marjorie Rico RN Work Phone: [facility] 04-30-2025 11:52-0400 Body mass index (BMI) [Ratio] 31 kg/m2 Rossana Rachel PA Work Phone: [facility] 04-30-2025 11:52-0400 Body weight 79.38 kg Rossana Walker PA Work Phone: [facility] 04-30-2025 11:52-0400 Diastolic blood pressure 94 mm[Hg] Rossana Rachel PA Work Phone: [facility] 04-30-2025 11:52-0400 Systolic blood pressure 140 mm[Hg] Rossana Rachel PA Work Phone: [facility] 04-11-2025 15:38-0400 Body mass index (BMI) [Ratio] 30.2 kg/m2 Rossana Walker PA Work Phone: [facility] 04-11-2025 15:38-0400 Body weight 77.34 kg Rossana Rachel PA Work Phone: [facility] 04-11-2025 15:38-0400 Diastolic blood pressure 100 mm[Hg] Rossana Walker PA Work Phone: [facility] 04-11-2025 15:38-0400 Systolic blood pressure 142 mm[Hg] Rossana Rachel PA Work Phone: [facility] 03-14-2025 11:36-0400 Body mass index (BMI) [Ratio] 29.23 kg/m2 Jose Michael DO Work Phone: [facility] 03-14-2025 11:36-0400 Body weight 74.84 kg Jose Michael DO Work Phone: [facility] 03-14-2025 11:36-0400 Diastolic blood pressure 76 mm[Hg] Jose Michael DO Work Phone: [facility] 03-14-2025 11:36-0400 Systolic blood pressure 112 mm[Hg] Jose Michael DO Work Phone: [facility] 02-20-2025 16:08-0400 Body mass index (BMI) [Ratio] 28.83 kg/m2 Rossana BISWAS Work Phone: [facility] 02-20-2025 16:08-0400 Body weight 73.82 kg Rossana BISWAS Work Phone: [facility] 02-20-2025 16:08-0400 Diastolic blood pressure 82 mm[Hg] Rossana Ramos PA Work Phone: [facility] 02-20-2025 16:08-0400 Systolic blood pressure 110 mm[Hg] Rossana Ramos PA Work Phone: [facility] 01-14-2025 15:42-0400 Body mass index (BMI) [Ratio] 27.3 kg/m2 Jose Michael DO Work Phone: [facility] 01-14-2025 15:42-0400 Body weight 69.91 kg Jose Michael DO Work Phone: [facility] 01-14-2025 15:42-0400 Diastolic blood pressure 70 mm[Hg] Jose Michael DO Work Phone: [facility] 01-14-2025 15:42-0400 Systolic blood pressure 120 mm[Hg] Jose Michael DO Work Phone: [facility] 08-20-2024 10:55-0500 Body mass index (BMI) [Ratio] 25.93 kg/m2 Rossana BISWAS Work Phone: [facility] 08-20-2024 10:55-0500 Body weight 66.41 kg Rossana Ramos PA Work Phone: [facility] 08-20-2024 10:55-0500 Diastolic blood pressure 70 mm[Hg] Rossana Ramos PA Work Phone: [facility] 08-20-2024 10:55-0500 Systolic blood pressure 120 mm[Hg] Rossana Ramos PA Work Phone: [facility] 08-06-2024 09:38-0500 Body mass index (BMI) [Ratio] 25.47 kg/m2 Jose Michael DO Work Phone: [facility] 08-06-2024 09:38-0500 Body weight 65.23 kg Jose Michael DO Work Phone: [facility] 08-06-2024 09:38-0500 Diastolic blood pressure 70 mm[Hg] Jose Michael DO Work Phone: [facility] 08-06-2024 09:38-0500 Systolic blood pressure 120 mm[Hg] Jose Michael DO Work Phone: [facility] 06-29-2024 09:12-0400 Body mass index (BMI) [Ratio] 24.58 kg/m2 [facility] Nurse [facility] 06-29-2024 09:12-0400 Body weight 62.94 kg [facility] Nurse [facility] 06-29-2024 09:12-0400 Diastolic blood pressure 72 mm[Hg] [facility] Nurse [facility] 06-29-2024 09:12-0400 Systolic blood pressure 122 mm[Hg] Nom Nurse [facility] 12-26-2022 13:45-0400 Body height 160.02 cm Jennifer Huston Other [employer] Other 12-26-2022 13:45-0400 Body mass index (BMI) [Ratio] 27.45 kg/m2 Jennifer Huston Other [employer] Other 12-26-2022 13:45-0400 Body temperature 97 [degF] Jennifer Huston Other [employer] Other 12-26-2022 13:45-0400 Body weight 70.31 kg Jennifer Huston Other [employer] Other 12-26-2022 13:45-0400 Diastolic blood pressure 89 mm[Hg] Jennifer Huston Other [employer] Other 12-26-2022 13:45-0400 Respiratory rate 18 /min Jennifer Huston Other [employer] Other 12-26-2022 13:45-0400 SaO2% (BldA) [Mass fraction] 100 % Jennifer Huston Other [employer] Other 12-26-2022 13:45-0400 Systolic blood pressure 135 mm[Hg] Jennifer Huston Other [employer] Other Encounters Encounter Date Encounter Type Care Provider Facility Start: 06-04-2025 End: 06-04-2025 Office consultation new/estab patient 60 min Manas Martin MD Work Phone: [facility] Comment on above: Poor growth af fecting management of mother in third trimester, single or unspecified fetus (Primary Dx) Start: 06-04-2025 End: 06-04-2025 Orders Only Marii Yoo RN [facility]- [facility] at [facility] Comment on above: Poor growth af fecting management of mother in third trimester, single or unspecified fetus (Primary Dx); Gestational diabetes mellitus (GDM) in third trimester, gestational diabetes method of control unspecified Start: 06-01-2025 End: 06-01-2025 Clinisync Result Encounter Rossana BISWAS Work Phone: [facility] Unsolicited Start: 06-01-2025 End: 06-01-2025 Clinisync Result Encounter Rossana BISWAS Work Phone: [facility] Unsolicited Start: 05-31-2025 End: 05-31-2025 Chart abstracting Scanning Provider External [facility] Start: 05-28-2025 End: 05-28-2025 Bamboo flowsheet Jose Michael DO Work Phone: [facility] Start: 05-28-2025 End: 05-28-2025 Bamboo flowsheet Jose Michael DO Work Phone: [facility] Start: 05-28-2025 End: 05-28-2025 Telephone encounter Chante TEJEDA Work Phone: [facility] Start: 05-28-2025 End: 05-28-2025 ambulatory JOSE MICHAEL Not Available Start: 05-28-2025 End: 05-28-2025 flow sheet Jose Michael DO Work Phone: [facility] Comment on above: Third trimester preg alysa ([facility]); 32 weeks gestation of ([facility]); Gestational diabetes mellitus (GDM), antepartum, gestational diabetes method of control unspecified ([facility]); induced hypertension, antepartum ([facility]) Start: 05-25-2025 End: 05-25-2025 Clinisync Result Encounter Rossana BISWAS Work Phone: [facility] Unsolicited Start: 05-25-2025 End: 05-25-2025 Clinisync Result Encounter Rossana BISWAS Work Phone: [facility] External [facility] Unsolicited Start: 05-22-2025 End: 05-22-2025 ambulatory JOSE MICHAEL Not Available Start: 05-22-2025 End: 05-22-2025 flow sheet Jose Michael DO Work Phone: [facility] Comment on above: Third trimester preg alysa ([facility]); 31 weeks gestation of ([facility]) Start: 05-22-2025 End: 05-22-2025 Bamboo flowsheet Jose Michael DO Work Phone: [facility] Start: 05-22-2025 End: 05-22-2025 Bamboo flowsheet Jose Michael DO Work Phone: [facility] Start: 05-21-2025 End: 05-21-2025 Telephone encounter Chante Muse LD Work Phone: [facility] Start: 05-20-2025 End: 05-20-2025 Clinisync Result Encounter [...] Comment on above: Third trimester preg alysa ([facility]); 30 weeks gestation of ([facility]); induced hypertension, antepartum ([facility]) Start: 05-14-2025 End: 05-14-2025 Bamboo flowsheet Jose Michael DO Work Phone: [facility] Start: 05-14-2025 End: 05-14-2025 Bamboo flowsheet Jose Michael DO Work Phone: [facility] Start: 05-13-2025 End: 05-13-2025 ambulatory Marjorie Rico RN Work Phone: [facility] Comment on above: Gestational diabetes mellitus (GDM) in third trimester, gestational diabetes method of control unspecified Start: 05-11-2025 End: 05-11-2025 Clinisync Result Encounter Rossana BISWAS Work Phone: [facility] Unsolicited Start: 05-11-2025 End: 05-11-2025 Clinisync Result Encounter Rossana BISWAS Work Phone: [facility] Unsolicited Start: 05-10-2025 End: 05-10-2025 Chart abstracting Scanning Provider External [facility] Start: 05-06-2025 End: 05-06-2025 Clinisync Result [...] Start: 05-04-2025 End: 05-08-2025 Telephone encounter Jose Hendrickso DO Work Phone: [facility] Start: 04-30-2025 End: 04-30-2025 Bamboo flowsheet Rossana BISWAS Work Phone: [facility] Start: 04-30-2025 End: 04-30-2025 Bamboo flowsheet Rossana Walker PA Work Phone: [facility] [place] [facility] Start: 04-30-2025 End: 04-30-2025 ambulatory ROSSANA RAMOS Not Available Start: 04-30-2025 End: 04-30-2025 Patient encounter status Rossana Ramos PA Work Phone: [facility] Work Phone: Start: 04-30-2025 End: 04-30-2025 flow sheet Rossana Rachel TRUE Work Phone: [facility] Comment on above: BP check; -induced hypertension in third trimester ([facility]); Gestational diabetes mellitus (GDM) in third trimester, gestational diabetes method of control unspecified ([facility]) Start: 04-27-2025 End: 04-27-2025 Clinisync Result Encounter Rossana Walker PA Work Phone: [facility] Unsolicited Start: 04-27-2025 End: 04-27-2025 Clinisync Result Encounter Rossana Ramos TRUE Work Phone: [facility] Unsolicited Start: 04-25-2025 End: 04-25-2025 flow sheet Rossana Rachel TRUE Work Phone: [facility] Comment on above: Second trimester pre gnancy ([facility]); 27 weeks gestation of ([facility]); induced hypertension, antepartum ([facility]) Start: 04-25-2025 End: 04-25-2025 ambulatory ROSSANA RAMOS Not Available Start: 04-25-2025 End: 04-25-2025 Bamboo flowsheet Rossana Rachel PA Work Phone: [facility] Start: 04-25-2025 End: 04-25-2025 Bamboo flowsheet Rossana Walker PA Work Phone: [facility] [place] [facility] Start: 04-11-2025 End: 04-11-2025 ambulatory ROSSANA RAMOS Not Available Start: 04-11-2025 End: 04-11-2025 flow sheet Rossana BISWAS Work Phone: [facility] Comment on above: Second trimester pre gnancy ([facility]); 25 weeks gestation of ([facility]); Diabetes mellitus screening; Elevated BP without diagnosis of hypertension Start: 04-11-2025 End: 04-11-2025 Bamboo flowsheet Rossana BISWAS Work Phone: [facility] Start: 04-11-2025 End: 04-11-2025 Bamboo flowsheet Rossana BISWAS Work Phone: [facility] Start: 03-25-2025 End: 03-25-2025 Clinisync Result Encounter Jose Michael DO Work Phone: [facility] External Department Unsolicited Start: 03-25-2025 End: 03-25-2025 Clinisync Result Encounter Jose Michael DO Work Phone: [facility] External Department Unsolicited Start: 03-14-2025 End: 03-14-2025 Bamboo flowsheet Jose Michael DO Work Phone: [facility] Start: 03-14-2025 End: 03-14-2025 Bamboo flowsheet Jose Michael DO Work Phone: [facility] Start: 03-14-2025 End: 03-14-2025 ambulatory JOSE MICHAEL Not Available Start: 03-14-2025 End: 03-14-2025 flow sheet Jose Michael DO Work Phone: [facility] Comment on above: Second trimester pre gnancy ([facility]); 21 weeks gestation of ([facility]) Start: 03-08-2025 End: 03-08-2025 Clinisync Result Encounter Jose Michael DO Work Phone: [facility] Unsolicited Start: 03-08-2025 End: 03-08-2025 Clinisync Result Encounter Jose Michael DO Work Phone: [facility] External Department Unsolicited Start: 02-20-2025 End: 02-20-2025 [...] up visit related to original px Rossana BISWSA Work Phone: [facility] Comment on [...] Start: 08-10-2024 End: 08-10-2024 ambulatory PHYSICIAN NO [facility] Work Phone: Start: 08-10-2024 End: 08-10-2024 Departed Referred PHYSICIAN NO [facility] Start: [...] End: 12-26-2022 ambulatory Jennifer Huston Other 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 Facility: Start: 04-12-2022 End: 04-12-[address] JOSE RODRIGUEZ . Facility:[facility] Start: 04-12-2022 End: 04-13-[address] JOSE RODRIGUEZ . Facility:[facility] Start: 03-26-2022 End: 03-27-[address] JOSE RODRIGUEZ . Facility:[facility] Start: 01-22-2022 End: 01-23-[address] JOSE RODRIGUEZ . Facility:[facility] Start: 01-14-2022 End: 01-15-[address] JOSE RODRIGEUZ . Facility: Procedures Date Procedure Procedure Detail Performing Clinician Start: 06-01-2025 US OB BPP W NON-STRESS Rossana BISWAS Work Phone: Start: 05-28-2025 Urnls dip stick/tabl et rgnt non-auto w/o micrscp Jose Michael DO Work Phone: Start: 05-25-2025 US OB BPP W NON-STRESS Rossana BISWAS Work Phone: Start: 05-22-2025 Urnls dip stick/tabl et rgnt non-auto w/o micrscp Jose Michale DO Work Phone: Start: 05-20-2025 TBH TOTAL [...] Phone: Start: 02-20-2025 IGP,APTIMA HPV,AGE GDLN Rossana Ramos PA Work Phone: Start: 02-20-2025 Microscopic observat ion [Identifier] in Cervix by Cyto stain Scanning External Start: 01-14-2025 Urnls dip stick/tabl et rgnt non-auto w/o micrscp Jose Michael DO Work Phone: Start: 01-05-2025 Antibody rubella [...] Start: 12-26-2022 Plain X-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 hand BUILDING CONSTRUCTION ESTIMATOR-C Jennifer Huston Work Phone: Start: 11-02-2022 Cytp [...] malign ant neoplasm of cervix Pap Smear [facility] Start: 06-04-2026 End: 06-04-2026 US MFM with or without consult US MFM with or without consult Imaging Routine Poor growth affecting management of mother in third trimester, single or unspecified fetus Gestational diabetes mellitus (GDM) in third trimester, gestational diabetes method of control unspecified Expected: 06/04/2026 (Approximate), Expires: 06/04/2026 [facility] Work Phone: Comment on above: Expected: 06/04/2026 (Approximate), Expires: 06/04/2026 Start: 06-24-2025 End: 06-24-2025 Patient encounter procedure 06/24/2025 2:15 PM EDT Appointment [facility] [place] [address] [place] [address] [facility] [place] [facility] Start: 06-18-2025 End: 06-18-2025 Patient encounter procedure 06/18/2025 3:30 PM EDT Appointment [facility] [address] [place] [address] [facility] Start: 06-12-2025 End: 06-12-2025 Patient encounter procedure 06/12/2025 3:00 PM EDT Routine [facility] [address] [place] [address] Rossana Ramos PA [address] [place] [address] [facility] Start: 06-11-2025 End: 06-11-2025 Patient encounter procedure 06/11/2025 8:00 AM EDT Appointment [facility] [address] [place] [address] [facility] Start: 06-04-2025 End: 06-04-2025 Patient encounter procedure 06/04/2025 1:[address] [facility] [address] [place] [phone] Jose Rodriguez, DO [address] [place] [address] [facility] Start: 06-04-2025 Subsequent hospital visit by physician 06/04/2025 1:00 PM EDT Hospital Encounter [facility] [address] [place] [address] Jose Rodriguez, DO [address] [place] [address] [facility] Start: 05-28-2025 End: 05-28-2025 Patient encounter procedure 05/28/2025 10:30 AM EDT Routine [facility] [address] [address] Jose Rodriguez, [address] [place] [address] [facility] Start: 05-27-2025 Influenza vaccination N [facility] Start: 05-22-2025 End: 05-22-2025 Patient encounter procedure 05/22/2025 2:40 PM EDT Routine [facility] [address] [address] Jose Rodriguez, [address] [place] [address] [facility] Start: 05-14-2025 End: 05-14-2025 Patient encounter procedure 05/14/2025 2:40 PM EDT Routine [facility] [address] [address] Jose Rodriguez, [address] [place] [address] [facility] Start: 05-14-2025 End: 05-14-2026 Alanine aminotransferase [Enzymatic activity/volume] in Serum or Plasma ALT Lab Routine induced hypertension, antepartum ([facility]) Expected: 05/14/2025 (Approximate), Expires: 05/14/2026 [facility] Comment on above: Expected: 05/14/2025 (Approximate), Expires: 05/14/2026 Start: 05-14-2025 End: 05-14-2026 Aspartate aminotransferase [Enzymatic activity/volume] in Serum or Plasma AST Lab Routine induced hypertension, antepartum ([facility]) Expected: 05/14/2025 (Approximate), Expires: 05/14/2026 [facility] Comment on above: Expected: 05/14/2025 (Approximate), Expires: 05/14/2026 Start: 05-14-2025 End: 05-14-2026 CBC W Auto Differential panel - Blood CBC and differential Lab Routine induced hypertension, antepartum ([facility]) Expected: 05/14/2025 (Approximate), Expires: 05/14/2026 [facility] Comment on above: Expected: 05/14/2025 (Approximate), Expires: 05/14/2026 Start: 05-14-2025 End: 05-14-2026 Creatinine [Mass/volume] in Serum or Plasma Creatinine Lab Routine induced hypertension, antepartum ([facility]) Expected: 05/14/2025 (Approximate), Expires: 05/14/2026 [facility] Work Phone: Comment on above: Expected: 05/14/2025 (Approximate), Expires: 05/14/2026 Start: 05-14-2025 End: 05-14-2026 Lactate dehydrogenase [Enzymatic activity/volume] in Serum or Plasma by Lactate to pyruvate reaction Lactate dehydrogenase Lab Routine induced hypertension, antepartum ([facility]) Expected: 05/14/2025, Expires: 05/14/2026 [facility] Comment on above: Expected: 05/14/2025 , Expires: 05/14/2026 Start: 05-14-2025 End: 05-14-2026 Protein, urine, 24 hour Protein, urine, 24 hour Lab Routine induced hypertension, antepartum ([facility]) Expected: 05/14/2025 (Approximate), Expires: 05/14/2026 [facility] Comment on above: Expected: 05/14/2025 (Approximate), Expires: 05/14/2026 Start: 05-14-2025 End: 05-14-2026 Pt and ptt Pt and ptt Lab Routine induced hypertension, antepartum ([facility]) Expected: 05/14/2025, Expires: 05/14/2026 [facility] Comment on above: Expected: 05/14/2025 , Expires: 05/14/2026 Start: 05-14-2025 End: 05-14-2026 Urate [Mass/volume] in Serum or Plasma Uric acid Lab Routine induced hypertension, antepartum ([facility]) Expected: 05/14/2025 (Approximate), Expires: 05/14/2026 [facility] Comment on above: Expected: 05/14/2025 (Approximate), Expires: 05/14/2026 Start: 05-14-2025 End: 05-14-2026 Urea nitrogen [Mass/volume] in Serum or Plasma BUN Lab Routine induced hypertension, antepartum ([facility]) Expected: 05/14/2025, Expires: 05/14/2026 [facility] Comment on above: Expected: 05/14/2025 , Expires: 05/14/2026 Start: 05-13-2025 End: 05-13-2025 ambulatory 05/13/2025 1:30 PM EDT Support Visit [facility] at [facility] [address] [facility] [place] [address] Marjorie Rico RN [address] [place] [address] Xenia Rayo, ALEC [address] [facility] [address] [place] [address] [facility] Start: 04-30-2025 End: 10-31-2025 US biophysical profile w non stress test US biophysical profile w non stress test Imaging Routine -induced hypertension in third trimester ([facility]) Gestational diabetes mellitus (GDM) in third trimester, gestational diabetes method of control unspecified ([facility]) Expected: 04/30/2025 (Approximate), Expires: 10/31/2025 [facility] Work Phone: Comment on above: Expected: 04/30/2025 (Approximate), Expires: 10/31/2025 Start: 04-30-2025 End: 08-30-2025 US for US OB follow up transabdominal approach Imaging Routine -induced hypertension in third trimester ([facility]) Gestational diabetes mellitus (GDM) in third trimester, gestational diabetes method of control unspecified ([facility]) Expected: 04/30/2025, Expires: 08/30/2025 [facility] Comment on above: Expected: 04/30/2025 , Expires: 08/30/2025 Start: 04-30-2025 End: 04-30-2025 Patient encounter procedure 04/30/2025 10:50 AM EDT Routine [facility] [address] [phone] Rossana Ramos PA [address] [place] [address] [facility] Start: 04-25-2025 End: 04-25-2025 Patient encounter procedure [facility] Comment on above: Arrived Start: 04-25-2025 End: 04-25-2026 Alanine aminotransferase [Enzymatic activity/volume] in Serum or Plasma ALT Lab Routine induced hypertension, antepartum ([facility]) Expected: 04/25/2025 (Approximate), Expires: 04/25/2026 [facility] Comment on above: Expected: 04/25/2025 (Approximate), Expires: 04/25/2026 Start: 04-25-2025 End: 04-25-2026 Aspartate aminotransferase [Enzymatic activity/volume] in Serum or Plasma AST Lab Routine induced hypertension, antepartum ([facility]) Expected: 04/25/2025 (Approximate), Expires: 04/25/2026 [facility] Comment on above: Expected: 04/25/2025 (Approximate), Expires: 04/25/2026 Start: 04-25-2025 End: 04-25-2026 CBC W Auto Differential panel - Blood CBC and differential Lab Routine induced hypertension, antepartum ([facility]) Expected: 04/25/2025 (Approximate), Expires: 04/25/2026 [facility] Comment on above: Expected: 04/25/2025 (Approximate), Expires: 04/25/2026 Start: 04-25-2025 End: 04-25-2026 Creatinine [Mass/volume] in Serum or Plasma Creatinine Lab Routine induced hypertension, antepartum ([facility]) Expected: 04/25/2025 (Approximate), Expires: 04/25/2026 [facility] Work Phone: Comment on above: Expected: 04/25/2025 (Approximate), Expires: 04/25/2026 Start: 04-25-2025 End: 04-25-2026 Lactate dehydrogenase [Enzymatic activity/volume] in Serum or Plasma by Lactate to pyruvate reaction Lactate dehydrogenase Lab Routine induced hypertension, antepartum ([facility]) Expected: 04/25/2025, Expires: 04/25/2026 [facility] Comment on above: Expected: 04/25/2025 , Expires: 04/25/2026 Start: 04-25-2025 End: 04-25-2026 Protein, urine, 24 hour Protein, urine, 24 hour Lab Routine induced hypertension, antepartum ([facility]) Expected: 04/25/2025 (Approximate), Expires: 04/25/2026 [facility] Comment on above: Expected: 04/25/2025 (Approximate), Expires: 04/25/2026 Start: 04-25-2025 End: 04-25-2026 Pt and ptt Pt and ptt Lab Routine induced hypertension, antepartum ([facility]) Expected: 04/25/2025, Expires: 04/25/2026 [facility] Comment on above: Expected: 04/25/2025 , Expires: 04/25/2026 Start: 04-25-2025 End: 04-25-2026 Urate [Mass/volume] in Serum or Plasma Uric acid Lab Routine induced hypertension, antepartum ([facility]) Expected: 04/25/2025 (Approximate), Expires: 04/25/2026 [facility] Comment on above: Expected: 04/25/2025 (Approximate), Expires: 04/25/2026 Start: 04-25-2025 End: 04-25-2026 Urea nitrogen [Mass/volume] in Serum or Plasma BUN Lab Routine induced hypertension, antepartum ([facility]) Expected: 04/25/2025, Expires: 04/25/2026 [facility] Comment on above: Expected: 04/25/2025 , Expires: 04/25/2026 Start: 04-11-2025 End: 04-11-2025 Patient encounter procedure 04/11/2025 3:30 PM EDT Routine [facility] [address] [address] [facility] [phone] Rossana Ramos PA [address] [place] [place] [address] [facility] Start: 04-11-2025 End: 04-11-2026 CBC panel - Blood by Automated count CBC Lab Routine Diabetes mellitus screening Expected: 04/11/2025 (Approximate), Expires: 04/11/2026 [facility] Work Phone: Comment on above: [...] AM EDT Routine [facility] [address] [facility] [address] [facility] [address] [address] Jose Rodriguez DO [address] [place] [place] [address] [facility] Start: 02-20-2025 End: 02-20-2025 [...] AM EDT Initial [facility] [address] [place] [address] [facility] Start: 12-14-2024 End: 12-14-2024 Professional / ancillary services management 12/14/2024 8:30 AM EDT Ancillary Procedure [facility] [address] [place] [address] [facility] Start: 08-20-2024 End: 08-20-2024 Patient encounter procedure 08/20/2024 10:20 AM EST Office Visit [facility] [address] [place] [address] Rossana Ramos PA [address] [place] [address] [facility] Start: 08-06-2024 End: 08-06-2024 Patient encounter procedure 08/06/2024 9:10 AM EST Routine [facility] [address] [place] [id number] Jose Rodriguez DO [address] [place] [address] [facility] Start: 06-29-2024 End: 06-29-2025 ABO/Rh ABO/Rh Lab Routine Missed menses , unspecified gestational age Expected: 06/29/2024 (Approximate), Expires: 06/29/2025 [facility] Comment on above: Expected: 06/29/2024 (Approximate), Expires: 06/29/2025 Start: 06-29-2024 End: 06-29-2025 Blood type and Indirect antibody screen panel - Blood Type and screen Lab Routine Missed menses , unspecified gestational age Expected: 06/29/2024 (Approximate), Expires: 06/29/2025 [facility] Work Phone: Comment on above: Expected: 06/29/2024 (Approximate), Expires: 06/29/2025 Start: 06-29-2024 End: 06-29-2025 Drugs of abuse panel - Urine by Screen method Rapid drug screen, urine Lab Routine , unspecified gestational age Encounter for supervision of normal first in first trimester Expected: 06/29/2024 (Approximate), Expires: 06/29/2025 [facility] Comment on above: Expected: 06/29/2024 (Approximate), Expires: 06/29/2025 Start: 06-29-2024 End: 06-29-2025 US Pelvis transvaginal US OB transvaginal Imaging Routine Missed menses Expected: 06/29/2024 (Approximate), Expires: 06/29/2025 [facility] Comment on above: Expected: 06/29/2024 (Approximate), Expires: 06/29/2025 Start: 05-27-2024 Influenza vaccination Influenza Vacc ine (#1) [facility] Start: 05-01-2024 DTaP,Tdap and Td Vac cines (7 - Td or Tdap) DTaP,Tdap and Td Vaccines (7 - Td or Tdap) [facility] Start: 2020 DTaP,Tdap and Td Vac cines (1 - Tdap) DTaP,Tdap and Td Vaccines (1 - Tdap) [facility] Start: 2019 Adult BMI Screening Adult BMI Screen ing [facility] Start: 2013 Depression Screening Depression Scre ening [facility] Start: 2013 Tobacco Screening Tobacco Screening [facility] Start: 2001 Screening for Chlamy jd trachomatis Chlamydia Screening [facility] Bacteria identified in Urine by Culture Urine culture Microbiology Routine Missed menses Ordered: 06/29/2024 [facility] Comment on above: Ordered: 06/29/2024 Bacteria identified in Urine by Culture Urine culture Microbiology Routine Urinary frequency Ordered: 02/20/2025 [facility] Comment on above: Ordered: 02/20/2025 CBC W Auto Different ial panel - Blood CBC and differential Lab Routine Missed menses , unspecified gestational age Ordered: 06/29/2024 [facility] Comment on above: Ordered: 06/29/2024 CHLAMYDIA TRACHOMATI S (GENITO/STI) CHLAMYDIA TRACHOMATIS (GENITO/STI) Lab Routine STD exposure Ordered: 02/20/2025 [facility] Comment on above: Ordered: 02/20/2025 Cytology Cervical or vaginal smear or scraping study Pap Smear Pathology and Cytology Routine Well woman exam with routine gynecological exam Ordered: 02/20/2025 [facility] Comment on above: Ordered: 02/20/2025 Hemoglobin A1c/Hemoglobin.total in Blood Hemoglobin A1c Lab Routine Missed menses , unspecified gestational age Ordered: 06/29/2024 [facility] Comment on above: Ordered: 06/29/2024 Hepatitis B virus beltran rface Ag [Presence] in Serum or Plasma by Immunoassay Hepatitis B surface antigen Lab Routine Missed menses , unspecified gestational age Ordered: 06/29/2024 [facility] Comment on above: Ordered: 06/29/2024 Hepatitis C virus Ab [Presence] in Serum or Plasma by Immunoassay Hepatitis C antibody Lab Routine Missed menses , unspecified gestational age Ordered: 06/29/2024 [facility] Comment on above: Ordered: 06/29/2024 HIV-1/HIV-2 antigen/antibody combination immunoassay HIV-1 and HIV-2 antibodies Lab Routine Missed menses , unspecified gestational age Ordered: 06/29/2024 [facility] Comment on above: Ordered: 06/29/2024 Neisseria gonorrhoea e DNA [Presence] in Unspecified specimen by INESSA with probe detection Neisseria gonorrhea DNA probe, direct Lab Routine STD exposure Ordered: 02/20/2025 [facility] Comment on above: Ordered: 02/20/2025 Reagin Ab [Presence] in Serum by RPR RPR Lab Routine Missed menses , unspecified gestational age Ordered: 06/29/2024 [facility] Comment on above: Ordered: 06/29/2024 [...] Payers Date Payer Category Payer Medicaid HMO [id number] 2024 [facility] Managed Care - O [id number] 2023 Medicaid [employer] [place] [id number] 2023-Present [address] [place] [id number] 2023 Medicaid (Managed Care) [employer] [id number] 2021 [facility] 1.2.8 [id number] 2021 Unknown BCBS BCBS xxxxxx [id number] 2021-Present [phone] [address] [place] [address] [id number]. [id number] 2001 Unknown [id number] 2.16.840.1.824387.3.579.2. 593 2001 Unknown [id number] 2.16.840.1.746769.3.579.2. 593 2001 Unknown [id number] 2.16.840.1.412239.3.579.2. 593 2001 Unknown [id number] 2.16.840.1.922696.3.579.2. 593 2001 Unknown [id number] 2.16.840.1.712405.3.579.2. 593 2001 Unknown [id number] 2.16.840.1.354558.3.579.2. 593 2001 Unknown [id number] 2.16.840.1.879683.3.579.2. 593 2001 Unknown [id number] 2.16.840.1.236224.3.579.2. 593 2001 Unknown [id number] 2.16.840.1.389916.3.579.2. 593 2001 Unknown [id number] 2.16.840.1.566596.3.579.2. 593 2001 Unknown [id number] 2.16.840.1.223012.3.579.2. 593 2001 Unknown [id number] 2.16.840.1.517006.3.579.2. 593 2001 Unknown [id number] 2.16.840.1.339613.3.579.2. 593 2001 Unknown [id number] 2.16.840.1.860742.3.579.2. 593 2001 Unknown [id number] 2.16.840.1.822156.3.579.2. 593 2001 Unknown [id number] 2.16.840.1.157937.3.579.2. 593 2001 Unknown [id number] 2.16.840.1.226762.3.579.2. 593 2001 Unknown [id number] 2.16.840.1.497826.3.579.2. 593 2001 Unknown [id number] 2.16.840.1.151044.3.579.2. 593 2001 Unknown [id number] 2.16840.1.306186.3.579.2. 593 2001 Unknown [id number] 2.16840.1.512148.3.579.2. 593 2001 Unknown [id number] 2.16840.1.566479.3.579.2. 1286 2001 Unknown [id number] 2.16840.1.493575.3.579.2. 125 2001 Unknown [id number] 2.16840.1.547353.3.579.2. 125 2001 Unknown [id number] 2.16840.1.537295.3.579.2. 1259 2001 Unknown [id number] 2.16840.1.888714.3.579.2. 1259 2001 Unknown [id number] 2.16840.1.182112.3.579.2. 1259 2001 Unknown [id number] 2.16840.1.810399.3.579.2. 125 2001 Unknown [id number] 2.16840.1.058764.3.579.2. 1259 2001 Unknown [id number] 2.16840.1.044732.3.579.2. 125 2001 Unknown [id number] 2.16.840.1.406711.3.579.2. 1259 2001 Unknown [id number] 2.16.840.1.816679.3.579.2. 9 2001 Unknown [id number] 2.16.840.1.037995.3.579.2. 9 2001 Unknown [id number] 2.16.840.1.922870.3.579.2. 9 2001 Unknown [id number] 2.16.840.1.722954.3.579.2. 9 2001 Unknown [id number] 2.16.840.1.604594.3.579.2. 1259 1959 Self-pay 1959 Unknown [id number] 1959 Unknown [id number] Unknown [id number] 2.16.840.1.304090.3.579.2. 593 Unknown [id number] 2.16.840.1.280685.3.579.2. 531 Social History Date Type Detail Facility Start: 03-06-2019 End: 10-13-2023 Sex Assigned At [facility] [employer] Other Start: 2001 Sex Assigned At Female F [facility] Start: 10-13-2023 End: 05-10-2025 Tobacco smoking status NHIS Never smoked tobacco [facility] Start: 06-29-2024 End: 05-28-2025 Alcoholic beverage intake Current drinker of alcohol (finding) [facility] Start: 03-06-2019 End: 10-13-2023 History of Social function [facility] Start: 05-24-2024 [facility] Start: 2001 Sex assigned at Not on file [facility] Tobacco smoking stat us OHIS Unknown if ever smoked [facility] Work Phone: Start: 04-29-2015 End: 08-11-2024 Sex Female (finding) [facility] Start: 05-10-2025 End: 05-31-2025 Alcoholic beverage intake Ex-drinker (finding) [facility] Childcare Unknown [facility] Equipment Procedure Code Equipment Code Equipment Origin al Text Equipment Identifier Dates 1 strip by In Vi tro route Daily Use in the morning prior to breakfast, 1 hour after each meal for a total of 4times daily. [id number] Start: 05-08-2025 End: 06-07-2025 1 each by In Vit ro route Daily Use to check FSBS four times daily [id number] Start: 05-08-2025 End: 06-07-2025 Clinical Notes 12-26-2022 to 06-04-2025 Manas Martin MD - 06/04/2025 2:00 PM EDTTelephone Encounter - ILEANA Willams - 05/28/2025 1:52 PM EDTTelephone Encounter - ILEANA Willams - 05/28/2025 1:52 PM EDT Note Date & Type Note Facility 06-04-2025 History of Presen t illness Narrative REASON FOR TELEMEDICINE VIDEO CONSULTATION: growth restriction HISTORY OF PRESENT ILLNESS: Vimal Funes is a pleasant 25 y.o. G [...] by mouth in the morning and at bedtime., Disp: , Rfl: FAMILY/GENETIC HISTORY: No family history of VTE, cardiac defects and mental retardation . RECENT HOSPITALIZATION: none I did review all the labs results available in addition to labs which were ordered by the primary care physician, and the other consultants, we search on [place] and all the available care everywhere epic I did review all the imaging studies of the patient available on EMR, ordered by the primary care physician and the other method consultant HABITS: Patient activity no restrictions, diet [...] pregnancies and is a leading cause of infant morbidity and mortality. In fetuses at all gestational ages with weights or [...] RECOMMENDATION: 1. Continue serial Doppler studies at [facility] office weekly 2. 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 Patient does have multiple ultrasound scheduled with us Thank you for allowing me to participate in Vimal Funes . If there any questions please do not hesitate to contact us. Sincerely, MANAS MARTIN MD Video Visit via Real-time Synchronous Audiovisual Provider Location: [facility] AT [address] [phone] Patient Location: Other [facility] office Patient Location [place]: None Video Visit Consent Statement: I discussed risks, benefits, and alternatives of a real-time synchronous audiovisual consultation with the patient (and any accompanying persons) including the risks that the patient's personal health details and medical records will be discussed over real-time, synchronous, interactive video/audio/telecommunication technology, the visit will not be recorded without the express consent of both the provider and the patient, and that there are some limitations compared to [id number]-ah-[id number] evaluations. We elected to proceed. documented in this encounter [facility] 05-28-2025 Miscellaneous Notes Called regarding blood sugar logs from 05/20/25-05/26/25 but received voicemail. Vimal had 4 elevated fasting blood sugars and 2 elevated blood sugars after breakfast. Most recent fasting blood sugars have improved and she had three in target. We did talk last week about changing her evening snack. Will send a MyChart message. documented in this encounter [facility] 05-28-2025 Telephone encounter Note Called regarding blood sugar logs from 05/20/25-05/26/25 but received voicemail. Vimal had 4 elevated fasting blood sugars and 2 elevated blood sugars after breakfast. Most recent fasting blood sugars have improved and she had three in target. We did talk last week about changing her evening snack. Will send a i.am.plus electronicshart message. [facility] Work Phone: 05-28-2025 History of Presen t [...] ([facility]) 05/28/2025 Gestational diabetes mellitus (GDM), antepartum ([facility]) 05/28/2025 Resolved Ambulatory Problems Diagnosis Date Noted No Resolved Ambulatory Problems Past Medical History: Diagnosis Date Anemia Gestational diabetes ([facility]) History of blood transfusion Lead poisoning Miscarriage ([facility]) Nonsmoker Post depression HISTORY PAST MEDICAL HISTORY SOCIAL HISTORY Past Medical History: Diagnosis Date Anemia Gestational diabetes ([facility]) History of blood transfusion Lead poisoning Miscarriage ([facility]) Nonsmoker Post depression /anxiety Social [...] nursing note reviewed. Exam conducted with a manhole stripper present. Vitals: Estimated body mass index is 32.06 kg/m as calculated from the following: Height as of 01/06/23: 5' 3 . Weight as of this encounter: 181 lb. BP: 136/80 Patient's last menstrual period was 10/15/2024 (exact date). ASSESSMENT & PLAN ICD-10-CM 1. Third trimester ([facility]) Z34.93 POCT urinalysis dipstick manually resulted 2. 32 weeks gestation of ([facility]) Z3A.32 3. Gestational diabetes mellitus (GDM), antepartum, gestational diabetes method of control unspecified ([facility]) O24.419 4. induced hypertension, antepartum ([facility]) O13.9 Return OB: Patient presents today for [...] Jose Rodriguez DO documented in this encounter [facility] 05-22-2025 History of Presen t illness Narrative [...] nursing note reviewed. Exam conducted with a manhole stripper present. Vitals: Estimated body mass index is 31.49 kg/m as calculated from the following: Height as of 01/06/23: 5' 3 . Weight as of this encounter: 177 lb 12 oz. BP: (!) 138/92 Patient's last menstrual period was 10/15/2024 (exact date). ASSESSMENT & PLAN ICD-10-CM 1. Third trimester ([facility]) Z34.93 POCT urinalysis dipstick manually resulted 2. 31 weeks gestation of ([facility]) Z3A.31 Return OB: Patient presents [...] urine protein. Pt calling in sugars to [facility]. Orders Placed This Encounter Procedures POCT urinalysis dipstick manually resulted Follow Up: Patient is to return to office in 2 week for routine OB appointment. Documented by Meghana Felder LPN on behalf of: Jose Rodriguez DO documented in this encounter [facility] 05-21-2025 Miscellaneous Notes Called regarding [...] sugars next week. documented in this encounter [facility] 05-21-2025 Telephone encounter Note Called regarding [...] will send in blood sugars next week. [facility] Work Phone: 05-14-2025 History of Presen t illness Narrative Reason for Appointment: Patient ID: Vimal Funes is a 25 y.o. female who presents for Routine Visit Patient presents today for Return OB appointment. MEDICATIONS Current Outpatient Medications Medication Instructions Alcohol Swabs (Alcohol Prep Pad) 70 % pads 1 Pad, Topical, Daily, Use four times daily to check FSBS. Blood Glucose Monitoring Suppl (D-oDesk Glucometer) w/Device kit 1 kit, Does not [...] nursing note reviewed. Exam conducted with a manhole stripper present. Vitals: Estimated body mass index is 31.35 kg/m as calculated from the following: Height as of 01/06/23: 5' 3 . Weight as of this encounter: 177 lb. BP: 140/90 Patient's last menstrual period was 10/15/2024 (exact date). ASSESSMENT & PLAN ICD-10-CM 1. Third trimester ([facility]) Z34.93 POCT urinalysis dipstick manually resulted 2. 30 weeks gestation of ([facility]) Z3A.30 POCT urinalysis dipstick manually resulted 3. induced hypertension, antepartum ([facility]) O13.9 Creatinine Protein, urine, 24 hour [...] Jose Rodriguez DO documented in this encounter [facility] 05-13-2025 Group counseling note Patient: [...] Face to face time was 110 minutes. [facility] Work Phone: 05-13-2025 Miscellaneous Notes Patient: Vimal [...] was 110 minutes. documented in this encounter [facility] 05-07-2025 Telephone encounter Note Called pt to let her know that she did not pass her 3 hour glucose test and that I would be sending in supplies and referring her to diabetic education. [facility] 05-07-2025 Miscellaneous Notes Called pt to let her know that she did not pass her 3 hour glucose test and that I would be sending in supplies and referring her to diabetic education. documented in this encounter [facility] 04-30-2025 History of Presen t [...] resulted 2. -induced hypertension in third trimester ([facility]) O13.3 US biophysical profile w non stress test US OB follow up transabdominal approach labetalol (Normodyne) 300 MG tablet 3. Gestational diabetes mellitus (GDM) in third trimester, gestational diabetes method of control unspecified ([facility]) O24.419 US biophysical profile w non [...] of: TRUE Argueta documented in this encounter [facility] 04-25-2025 History of Presen t [...] PLAN ICD-10-CM 1. Second trimester ([facility]) Z34.92 2. 27 weeks gestation of ([facility]) Z3A.27 Patient presents for BP check. BP elevated today despite taking 100mg bid labetolol daily. We will increase to 200mg bid daily. Patient given labs and instructed to follow up with OB should she develop headache or vision changes Pt will follow up with DR Rodriguez next week Documented by TRUE Argueta on behalf of: TRUE Argueta documented in this encounter [facility] 04-11-2025 History of Presen t [...] Diagnosis Date Anemia Gestational diabetes ([facility]) History of blood transfusion Lead poisoning Miscarriage ([facility]) Nonsmoker Post depression HISTORY PAST MEDICAL HISTORY SOCIAL HISTORY Past Medical History: Diagnosis Date Anemia Gestational diabetes ([facility]) History of blood transfusion Lead poisoning Miscarriage ([facility]) Nonsmoker Post depression /anxiety Social History [...] PLAN ICD-10-CM 1. Second trimester ([facility]) Z34.92 POCT urinalysis dipstick manually resulted 2. 25 weeks gestation of ([facility]) Z3A.25 3. Diabetes mellitus screening Z13.1 [...] of: TRUE Argueta documented in this encounter [facility] 03-14-2025 History of Presen t [...] nursing note reviewed. Exam conducted with a manhole stripper present. Vitals: Estimated body mass index is 29.23 kg/m as calculated from the following: Height as of 01/06/23: 5' 3 . Weight as of this encounter: 165 lb. BP: 112/76 Patient's last menstrual period was 10/15/2024 (exact date). ASSESSMENT & PLAN ICD-10-CM 1. Second trimester ([facility]) Z34.92 POCT urinalysis dipstick manually resulted 2. 21 weeks gestation of ([facility]) Z3A.21 Patient presents today for a routine obstetrics appointment. Patient is currently 21w3d with a Estimated Date of Delivery: 07/22/25. Patient has no complaints at this time and will return to clinic in 4 weeks. Documented by Diamond Borja LPN on behalf of: Jose Rodriguez DO documented in this encounter [facility] 02-20-2025 History of Presen t [...] nursing note reviewed. Exam conducted with a manhole stripper present. Vitals: Estimated body mass index is [...] of: TRUE Argueta documented in this encounter [facility] 01-14-2025 History of Presen t [...] nursing note reviewed. Exam conducted with a manhole stripper present. Vitals: Estimated body mass index is [...] or undercooked meat, and stay away from [facility]. Patient has been consulted regarding any [...] Jose Rodriguez DO documented in this encounter [facility] 08-20-2024 History of Presen t [...] having a D&C Hysteroscopy performed at [facility] with Dr. Rodriguez. Pathology results was reviewed with the patient in great detail and all restrictions have been lifted. Follow Up: Patient is to return to the office for annual exam unless needed otherwise. Documented by TRUE Argueta on behalf of: TRUE Argueta documented in this encounter [facility] 08-06-2024 History of Presen t [...] nursing note reviewed. Exam conducted with a manhole stripper present. Vitals: Estimated body mass index is [...] vaginal bleeding. Patient to discuss date with Director Of Accounting prior to leaving. Patient is able to obtain work note for the week and if longer is needed she will reach out to office. Documented by Diamond Borja LPN on behalf of: Jose Rodriguez DO documented in this encounter [facility] 06-29-2024 History of Presen t [...] or undercooked meat, and stay away from [facility]. Patient has also been advised to [...] by: Whitney Peacock documented in this encounter [facility] 12-26-2022 Evaluation note Encounter Date [...] appointment to be seen soon as possible [employer] Other Evaluation noteNo assessment information available [facility] Work Phone: Evaluation note* Diagnosis Missed menses , unspecified gestational age Encounter for supervision of normal first in first trimester Nausea Nausea alone 7 weeks gestation of documented in this encounter [facility]* Diagnosis Miscarriage Unspecified spontaneous without mention of complication [facility] Postoperative examination Follow-up examination, following [...] of control unspecified [facility] Diagnosis Third trimester [...] in [facility] Diagnosis Poor growth affecting management of mother in third trimester, single or unspecified fetus- Primary [facility] Diagnosis Poor growth affecting management of mother in third trimester, single or unspecified fetus- Primary Gestational diabetes mellitus (GDM) in third trimester, gestational diabetes method of control unspecified [facility] filedocumented in this encounter [facility] on filedocumented in this encounter [facility] filedocumented in [facility] encounter [facility] on filedocumented in this encounter [facility] Summary Purpose Family History No Family History Records FoundNo Family History Records FoundNo Family History Records FoundNo Family History Records FoundNo Family History Records Found Advance Directives Advance Directive Response Recorded Date/ Time Advance Directives No December 27 6:21am Additional Source Comments INFORMATION SOURCE (unrecogn ized section and content) DATE CREATED AUTHOR 09/24/2021 [facility] DATE CREATED AUTHOR AUTHOR'S ORGANIZ ATION 12/07/2022 [facility] DATE CREATED AUTHOR AUTHOR'S ORGANIZ ATION 08/15/2024 [facility] DATE CREATED AUTHOR AUTHOR'S ORGANIZ ATION 05/14/2025 [facility] DATE CREATED AUTHOR AUTHOR'S ORGANIZ ATION 05/29/2025 [facility] EPIC REASON FOR [...] diabetes method of control unspecified Jose Rodriguez R, DO [address] [place] [address] Phone: tel: fax: Maternal- Medicine at [facility] [address] [place] [address] Phone: tel: fax: Referral ID Status Reason Start Date Expiration Date Visits Requested Visits Authorized [id number] Pending Review Specialty Services Required 05/09/2025 05/09/2026 1 1 Care Teams (unrecognized sec tion and content) Team Status: Inactive Member Role Status Dates Jennifer Huston NP-C Attending Provider Active Dust Operator Relationship Specialty Start Date End Date Vaishali Zapata MD [address] [place] [address] PCP - General Family Medicine 02/04/23 Dust Operator Relationship Specialty Start Date End Date Vaishali Zapata MD [address] [place] [address] PCP - General Family Medicine 02/04/23 Team Status: Active Member Role Status Dates PHYSICIAN NO FAMILY Primary Care Provider Active Team Status: Inactive Member Role Status Dates PHYSICIAN NO FAMILY Primary Care Provider Active Start: August 10, 2024 End: August 10, 2024 Jose Rodriguez DO Attending Provider Active Start : August 10, 2024 End: August 10, 2024 Dust Operator Relationship Specialty Start Date End Date Unallocated, Arjun Vo MD [facility] [place] [address] PCP - General Family Medicine 08/03/24 Dust Operator Relationship Specialty Start Date End Date Unallocated, Arjun Vo MD [address] [place] [address] PCP - General Family Medicine 08/03/24 Dust Operator Relationship Specialty Start Date End Date Unallocated, Arjun Vo MD [address] [facility] [place] [address] PCP - General Family Medicine 08/03/24 Dust Operator Relationship Specialty Start Date End Date Unallocated, MD Zuhair Aguero [facility] [place] [address] PCP - General Family Medicine 08/03/24 Dust Operator Relationship Specialty Start Date End Date Unallocated, Arjun Vo MD [facility] [address] [facility] [place] [address] PCP - General Family Medicine 08/03/24 Dust Operator Relationship Specialty Start Date End Date Unallocated, Arjun Vo MD [facility] [address] [facility] [place] [address] PCP - General Family Medicine 08/03/24 Dust Operator Relationship Specialty Start Date End Date Unallocated, Arjun Vo MD [facility] [address] [facility] [place] [address] PCP - General Family Medicine 08/03/24 Dust Operator Relationship Specialty Start Date End Date Unallocated, Arjun Vo MD [facility] [place] [address] PCP - General Family Medicine 08/03/24 Dust Operator Relationship Specialty Start Date End Date Unallocated, Arjun Vo MD [facility] [place] [address] PCP - General Family Medicine 08/03/24 Dust Operator Relationship Specialty Start Date End Date Unallocated, Arjun Vo MD [facility] [place] [address] PCP - General Family Medicine 08/03/24 Dust Operator Relationship Specialty Start Date End Date Unallocated, Arjun Vo MD [facility] [address] [facility] [place] [address] PCP - General Family Medicine 08/03/24 Dust Operator Relationship Specialty Start Date End Date Unallocated, Arjun Vo MD [facility] [address] [facility] [place] [address] PCP - General Family Medicine 08/03/24 Dust Operator Relationship Specialty Start Date End Date Unallocated, Arjun Vo MD [facility] [place] [address] PCP - General Family Medicine 08/03/24 Dust Operator Relationship Specialty Start Date End Date Unallocated, Arjun Vo MD [address] [facility] [place] [address] PCP - General Family Medicine 08/03/24 Dust Operator Relationship Specialty Start Date End Date Unallocated, Arjun Vo MD [address] [place] [address] PCP - General Family Medicine 08/03/24 Goals [...] BE BASED ON THE PRIMARY CLINICAL RECORDS. [facility]. provides no warranty or guarantee of the accuracy or completeness of information in this document.
== END 2025-06-05 17:32 | disposition home or self-care (01) ==
LOC: FBCO 17:00 → FBC 17:02
PROVIDERS: PCP Nurse Practitioner Family; Visit Provider Obstetrics & Gynecology
DX: O16.3 Unspecified maternal hypertension, third trimester (principal)
CPT/HCPCS: 59025

== ENCOUNTER 2025-06-08 10:57 | Outpatient (OUT) | payer BC, OTHER, SELFPAY ==
--- OUTSIDE RECORDS SUMMARY | 2025-06-08 10:59 | XMS_ITS | CCD ---
Author Organization [facility] Care Team Providers Care Music Orchestrator Name Role Phone MICHAEL ., DR MANN [...] Unavailable MISC, DR DOMINIQUE Primary Care Unavailable [place], DR COCO Danielle Consulting Unavailable MICHAEL ., DR MANN Consulting Unavailable MICHAEL ., DR MANN Admitting Unavailable MICHAEL ., DR MANN Attending Unavailable MISC, DR DOMINIQUE Primary Care Unavailable MICHAEL ., DR MANN Consulting Unavailable MICHAEL ., DR MANN Admitting Unavailable MICHAEL ., DR MANN Attending Unavailable MISC, DR DOMINIQUE Primary Care Unavailable [place], DR COCO Danielle Consulting Unavailable MICHAEL ., [...] Jennifer Huston Unavailable JEFFERY Huston Attending Provider [phone] Vaishali Zapata MD Primary Care Provider Unavai lable NO FAMILY, PHYSICIAN Primary Care Provider Unava ilable Michael DO, Jose Attending Provider Unallocated Arjun GREENBERG Provider Primary Care Provi krissy NO FAMILY, PHYSICIAN Primary Care Unavailable Michael, Jose Attending Unavailable Michael, Jose Admitting Unavailable Unavailable Primary Care Provider Unavailabl e MICHAEL, JOSE Attending Unavailable RACHEL, ROSSANA Attending Unavailable MICHAEL, JOSE Attending Unavailable RACHEL, ROSSANA Attending Unavailable MICHAEL, JOSE Attending Unavailable RACHEL, ROSSANA Attending Unavailable RACHEL, ROSSANA Attending Unavailable RACHEL, ROSSANA Attending Unavailable MICHAEL, JOSE Attending Unavailable MICHAEL, JOSE Attending Unavailable MICHAEL, JOSE Attending Unavailable MICHAEL, JOSE R Attending Unavailable MICHAEL, JOSE R Referring Unavailable XENIA LONDON Attending Unavailable MICHAEL, JOSE R Referring Unavailable MANAS MARTIN Attending Unavailable MICHAEL, JOSE R Referring Unavailable Medications Current Medications Medication Drug Class(es) [...] Serotonin-3 Receptor Antagonist Start: 06-29-20 End: 08-20-20 25 take 1 tablet by mouth every [...] source) Active 115/iron/folic acid ( 19 ORAL) (8 sources) 115/iron/folic acid ( 19 ORAL) Take [...] of hypertension] 04-11-2025 Episodic Other complications of (7 sources) Poor growth affecting management; Translations: [Maternal care for other known or suspected poor growth, third trimester, not applicable or unspecified] Onset: 06-04-2025 06-04-2025 Episodic Other complications of (1 source) Maternal care for other known or suspected poor growth, third trimester, not applicable or unspecified; Translations: [Maternal care for other known or suspected poor growth, third trimester, not applicable or unspecified] Onset: 06-04-2025 Episodic Other connective tissue disease (1 source) Pain in right finger(s) Episodic Other and delivery including normal (20 sources) Single live ; Translations: [Encounter for supervision of other normal , third trimester] Onset: 01-18-2022 Episodic Other screening for suspected conditions (not mental disorders or infectious disease) (19 sources) Encounter for screening for malignant neoplasm [...] ] Onset: 05-01-2022 Episodic Unclassified (1 source) [facility] SPCF DIS/COND COMPL ; Translations: [OTH SPCF DIS/COND COMPL ] Onset: 04-27-2022 Urinary tract infections (5 sources) Urinary tract infection, site not specified; Translations: [UTI SITE NOT SPECIFIED] Onset: 05-10-2022 Episodic Viral infection (1 source) Viral infection, unspecified; Translations: [VIRAL INFECTION UNSPECIFIED] Onset: 07-07-2022 Episodic Results Test Name Value Interpretation Reference Range Facility US OB BPP W NON-STRESS on 06-01-2025 [place] [address] Ultrasound Report Signed Patient: VIMAL FUNES MR#: [id number] : 2000 Acct:[id number] Age/Sex: 25 / F ADM Date: 06/01/25 Loc: US Attending Dr: Rossana Ramos Ordering Physician: Rossana Ramos Date of Service: 06/01/25 Procedure(s): US OB BPP w non-stress Accession Number(s): [id number] cc: Rossana Ramos; JENNIFER SEE [place] [id number] Patient Name: VIMAL FUNES MRN: TBH:[id number] date: 2000 Sex: F Assigned Patient Location: US Current Patient Location: Accession/Order Number: [id number] Exam Date: 06/01/2025 10:59 Report Date: 06/01/2025 12:03 At the request of: ROSSANA RAMOS Procedure: US OB BPP w non-stress Biophysical profile. Reason for exam: Gestational diabetes COMPARISON: 05/25/2025 TECHNIQUE: Transabdominal imaging of the gravid uterus was obtained. FINDINGS: The manager financial reports a BPP of 8 out of 8. DANYA is normal at 11.0 cm. Cardiac activity was visualized by the manager financial per tech note. No heart rate was documented. US/US OB BPP w non-stress IMPRESSION: BPP 8 out of 8. Impression dictated by: Bulmaro Arias Jr.Bahman 06/01/2025 12:03 PM Dictation Location: RADIO-PC-18 Electronically authenticated by: [id number] Y Date: 06/01/2025 12:03 Dictated By: Bulmaro Arias M.D. Signed By: 06/01/25 1206 DD/ 1203 TD/TT: Paper Products Supervisor: [facility] Radiology, Radiologist, - 06/01/2025 [place] [address] Ultrasound Report Signed Patient: VIMAL FUNES MR#: [id number] : 2000 Acct:[id number] Age/Sex: 25 / F ADM Date: 06/01/25 Loc: US Attending Dr: Rossana Ramos Ordering Physician: Rossana Ramos Date of Service: 06/01/25 Procedure(s): US OB BPP w non-stress Accession Number(s): [id number] cc: Rossana Ramos; JENNIFER SEE [place] [address] Patient Name: VIMAL FUNES MRN: [facility]:[id number] date: 2000 Sex: F Assigned Patient Location: US Current Patient Location: Accession/Order Number: [id number] Exam Date: 06/01/2025 10:59 Report Date: 06/01/2025 12:03 At the request of: ROSSANA RAMOS Procedure: US OB BPP w non-stress Biophysical profile. Reason for exam: Gestational diabetes COMPARISON: 05/25/2025 TECHNIQUE: Transabdominal imaging of the gravid uterus was obtained. FINDINGS: The manager financial reports a BPP of 8 out of 8. DANYA is normal at 11.0 cm. Cardiac activity was visualized by the manager financial per tech note. No heart rate was documented. US/US OB BPP w non-stress IMPRESSION: BPP 8 out of 8. Impression dictated by: Bulmaro Arias Jr., D.O. 06/01/2025 12:03 PM Dictation Location: RADIO-PC-18 Electronically authenticated by: [id number] Y Date: 06/01/2025 12:03 Dictated By: Bulmaro Arias M.D. Signed By: 06/01/25 1206 DD/ 1203 TD/TT: Paper Products Supervisor: [facility] Radiology Study observation (narrative) [facility] US OB BPP W NON-STRESS Ordered By: Radiologist Radiology on 06-01-2025 [facility] Work Phone: Urinalysis macro (dipstick) panel (U)on 05-28-2025 Bilirubin, UA Negative Negative - 4(70) +++ mg/dL [facility] Blood, UA Negative Negative - 50 Jason/mcL [facility] Clarity, UA Clear [facility] re Color, UA Yellow [facility] e Glucose, UA Negative Negative - 2000(110) ++++ mg/dL [facility] Interpretation and review of laboratory results Normal [facility] Ketones, UA Negative Negative - 160(16) ++++ mg/dL [facility] Leukocytes, UA Negative Negative - 500+++ Carlos/mcL [facility] Nitrite, UA Negative Negative - Positive [facility] pH, UA 6.5 5 - 9 [facility] e Protein, UA Negative Negative - 2000(20) ++++ mg/dL [facility] Spec Grav, UA 1.005 1 - 1.03 [facility] Urobilinogen, UA 1.0 0.2 - 12 mg/dL [facility] US OB BPP W NON-STRESS on 05-25-2025 [place] [address] Ultrasound Report Signed Patient: VIMAL FUNES MR#: [id number] : 2000 Acct:[id number] Age/Sex: 25 / F ADM Date: 05/25/25 Loc: US Attending Dr: Rossana Ramos Ordering Physician: Rossana Ramos Date of Service: 05/25/25 Procedure(s): US OB BPP w non-stress Accession Number(s): [id number] cc: Rossana Ramos; JENNIFER SEE [address] [address] Patient Name: VIMAL FUNES MRN: [facility]:[id number] date: 2000 Sex: F Assigned Patient Location: [facility] Current Patient Location: Accession/Order Number: [id number] Exam Date: 05/25/2025 08:21 Report Date: 05/25/2025 [...] Acharya M.D. 05/25/2025 11:13 AM Dictation Location: [employer] Electronically authenticated by: [id number] Y Date: 05/25/2025 11:13 Dictated By: Heriberto Acharya M.D. Signed By: 05/25/25 1116 DD/ 1113 TD/TT: Paper Products Supervisor: [facility] Radiology, Radiologist, MD - 05/25/2025 [place] [address] Ultrasound Report Signed Patient: VIMAL FUNES MR#: [id number] : 2000 Acct:[id number] Age/Sex: 25 / F ADM Date: 05/25/25 Loc: US Attending Dr: Rossana Ramos Ordering Physician: Rossana Ramos Date of Service: 05/25/25 Procedure(s): US OB BPP w non-stress Accession Number(s): [id number] cc: Rossana Ramos; JENNIFER SEE The [address] [address] Patient Name: VIMAL FUNES MRN: [facility]:[id number] date: 2000 Sex: F Assigned Patient Location: [facility] Current Patient Location: Accession/Order Number: [id number] Exam Date: 05/25/2025 08:21 Report Date: 05/25/2025 [...] Acharya M.D. 05/25/2025 11:13 AM Dictation Location: [employer] Electronically authenticated by: [id number] Y Date: 05/25/2025 11:13 Dictated By: Heriberto Acharya M.D. Signed By: 05/25/25 1116 DD/ 1113 TD/TT: Paper Products Supervisor: [facility] Radiology Study observation (narrative) [facility] US OB BPP W NON-STRESS Ordered By: Radiologist Radiology on 05-25-2025 [facility] Work Phone: Urinalysis macro (dipstick) panel (U)on 05-22-2025 Bilirubin, UA Negative Negative - 4(70) +++ mg/dL [facility] Blood, UA Negative Negative - 50 Jason/mcL [facility] Clarity, UA Clear [facility] re Color, UA Yellow [facility] Glucose, UA Negative Negative - 2000(110) ++++ mg/dL [facility] Interpretation and review of laboratory results Normal [facility] Ketones, UA Negative Negative - 160(16) ++++ mg/dL [facility] Leukocytes, UA Negative Negative - 500+++ Carlos/mcL [facility] Nitrite, UA Negative Negative - Positive [facility] pH, UA 6 5 - 9 [facility] Protein, UA Negative Negative - 2000(20) ++++ mg/dL [facility] Spec Grav, UA 1.01 1 - 1.03 [facility] Urobilinogen, UA 0.2 0.2 - 12 mg/dL [facility] TBH TOTAL PROTEIN 24 HOUR UR INEon 05-20-2025 Interpretation and review of laboratory results Abnormal [facility] Protein (U) [Mass/Vol] 6.7 mg/dL NINF - 11.9 mg/dL [facility] TBH TOTAL PROTEIN 24 HOUR URINE 194.3 High [facility] TOTAL VOLUME 24 HOUR URINE 2900 mL/24hr [facility] CBC WITH AUTO DIFFon BASOPHILS ABSOLUTE AUTO 0 [facility] Basophils/100 WBC (Bld) 0.1 % Low 0.2 - 2.0 % [facility] Eosinophils/100 WBC (Bld) 1.7 % 0.9 - 7.0 % [facility] Erythrocyte distribution width (RBC) [Ratio] 12.7 % 11.0 - 15.0 % [facility] Hematocrit (Bld) [Volume fraction] 38.1 % 36.0 - 48.0 % [facility] Hemoglobin (Bld) [Mass/Vol] 13.3 g/dL 12.0 - 16.0 g/dL [facility] IMMATURE GRANULOCYTES ABS AUTO 0.06 High [facility] Immature granulocytes/100 WBC (Bld) 0.4 % 0.0 - 0.5 % [facility] Interpretation and review of laboratory results Abnormal [facility] LYMPHOCYTES ABSOLUTE AUTO 1.4 [facility] Lymphocytes/100 WBC (Bld) 9 % Low 20.5 - 60.0 % [facility] MCH (RBC) [Entitic mass] 31.9 pg 26.7 - 34.0 pg [facility] MCHC (RBC) [Mass/Vol] 34.9 g/dL 29.9 - 35.2 g/dL [facility] MCV (RBC) [Entitic vol] 91.4 fL 81.0 - 99.0 fL [facility] MONOCYTES ABSOLUTE AUTO 0.7 [facility] Monocytes/100 WBC (Bld) 4.7 % [...] US OB BPP W NON-STRESS on 05-18-2025 [place] [address] Ultrasound Report Signed Patient: VIMAL FUNES MR#: [id number] : 2000 Acct:[id number] Age/Sex: 25 / F ADM Date: 05/18/25 Loc: US Attending Dr: Rossana Ramos Ordering Physician: Rossana Ramos Date of Service: 05/18/25 Procedure(s): US OB BPP w non-stress Accession Number(s): [id number] cc: Rossana Ramos; JENNIFER SEE [place] [phone] Patient Name: VIMAL FUNES MRN: [facility]:[id number] date: 2000 Sex: F Assigned Patient Location: [facility] Current Patient Location: Accession/Order Number: [id number] Exam Date: 05/18/2025 11:16 Report Date: 05/18/2025 [...] Acharya M.D. 05/18/2025 5:08 PM Dictation Location: [place] [address] Electronically authenticated by: [id number] Y Date: 05/18/2025 17:08 Dictated By: Heriberto Acharya M.D. Signed By: 05/18/252016 DD/ 07 TD/TT: Paper Products Supervisor: [facility] Radiology, Radiologist, MD - 05/18/2025 [place] [address] Ultrasound Report Signed Patient: VIMAL FUNES MR#: [id number] : 2000 Acct:[id number] Age/Sex: 25 / F ADM Date: 05/18/25 Loc: US Attending Dr: Rossana Ramos Ordering Physician: Rossana Ramos Date of Service: 05/18/25 Procedure(s): US OB BPP w non-stress Accession Number(s): [id number] cc: Rossnaa Ramos; JENNIFER SEE [place] [phone] Patient Name: VIMAL FUNES MRN: [facility]:[id number] date: 2000 Sex: F Assigned Patient Location: [facility] Current Patient Location: Accession/Order Number: [id number] Exam Date: 05/18/2025 11:16 Report Date: 05/18/2025 [...] Acharya M.D. 05/18/2025 5:08 PM Dictation Location: [place] [address] Electronically authenticated by: [id number] Y Date: 05/18/2025 17:08 Dictated By: Heriberto Acharya M.D. Signed By: 05/18/252016 DD/ 07 TD/TT: Paper Products Supervisor: [facility] Radiology Study observation (narrative) [facility] [employer] US OB BPP W NON-STRESS Ordered By: Radiologist Radiology on 05-18-2025 [facility] [employer] Work Phone: Glucose random or fasting- P OCTOrdered By: Sheridan Smallwood on 05-13-2025 External Glucose Fasting Or Random (Fbs) [address] [employer] [facility] BPP W NON-STRESS on 05-11-2025 [place] [address] Ultrasound Report Signed Patient: VIMAL FUNES MR#: [id number] : 2000 Acct:[id number] Age/Sex: 25 / F ADM Date: 05/11/25 Loc: [facility] 253-[address]: Rossana aRmos Ordering Physician: Rossana Ramos Date of Service: 05/11/25 Procedure(s): US OB BPP w non-stress Accession Number(s): [id number] cc: Rossana Ramos; JENNIFER SEE [place] [phone] Patient Name: VIMAL FUNES MRN: [facility]:[id number] date: 2000 Sex: F Assigned Patient Location: [facility] Current Patient Location: [facility] Accession/Order Number: [id number] Exam Date: 05/11/2025 12:01 Report Date: 05/11/2025 12:02 At the request of: ROSSANA RAMOS Procedure: US OB BPP w non-stress Biophysical profile. Reason for exam: Gestational diabetes COMPARISON: 05/04/2025 TECHNIQUE: Transabdominal imaging of the gravid uterus was obtained. FINDINGS: The manager financial reports a BPP of 8 out of 8. DANYA is normal at 11.9 cm. heart rate 138 bpm. US/US OB BPP w non-stress IMPRESSION: BPP 8 out of 8. Impression dictated by: Bulmaro Arias Jr., D.O. 05/11/2025 12:02 PM Dictation Location: [place] [address] Electronically authenticated by: [id number] Y Date: 05/11/2025 12:02 Dictated By: Bulmaro Arias M.D. Signed By: 05/11/25 1204 DD/ 1202 TD/TT: Paper Products Supervisor: [facility] Radiology, Radiologist, - 05/11/2025 [place] [address] Ultrasound Report Signed Patient: VIMAL FUNES MR#: [id number] : 2000 Acct:[id number] Age/Sex: 25 / F ADM Date: 05/11/25 Loc: [facility] 253-[address]: Rossana Ramos Ordering Physician: Rossana Ramos Date of Service: 05/11/25 Procedure(s): US OB BPP w non-stress Accession Number(s): [id number] cc: Rossana Ramos; JENNIFER SEE The [place] [phone] Patient Name: VIMAL FUNES MRN: [facility]:[id number] date: 2000 Sex: F Assigned Patient Location: [facility] Current Patient Location: [facility] Accession/Order Number: [id number] Exam Date: 05/11/2025 12:01 Report Date: 05/11/2025 12:02 At the request of: ROSSANA RAMOS Procedure: US OB BPP w non-stress Biophysical profile. Reason for exam: Gestational diabetes COMPARISON: 05/04/2025 TECHNIQUE: Transabdominal imaging of the gravid uterus was obtained. FINDINGS: The manager financial reports a BPP of 8 out of 8. DANYA is normal at 11.9 cm. heart rate 138 bpm. US/US OB BPP w non-stress IMPRESSION: BPP 8 out of 8. Impression dictated by: Bulmaro Arias Jr., D.O. 05/11/2025 12:02 PM Dictation Location: [place] [address] Electronically authenticated by: [id number] Y Date: 05/11/2025 12:02 Dictated By: Bulmaro Arias M.D. Signed By: 05/11/25 1204 DD/ 1202 TD/TT: Paper Products Supervisor: [facility] Radiology Study observation (narrative) [facility] US OB BPP W NON-STRESS Ordered By: Radiologist Radiology on 05-11-2025 [facility] Work Phone: TBH TOTAL PROTEIN 24 HOUR UR INEon 05-06-2025 TOTAL PROTEIN URINE RANDOM <6.0 NINF - 11.9 mg/dL [facility] TOTAL VOLUME 24 HOUR URINE 3700 mL/24hr [facility] 2nd hr Glucose Tolerance 100 gm loadon 05-04-2025 Glucose Tolerance Test 2 Hour 186 [facility] ALL CBC WITH AUTO DIFFon BASOPHILS ABSOLUTE AUTO 0 [facility] Basophils/100 WBC (Bld) 0.2 % 0.2 - 2.0 % [facility] Eosinophils/100 WBC (Bld) 2.6 % 0.9 - 7.0 % [facility] Erythrocyte distribution width (RBC) [Ratio] 12.7 % 11.0 - 15.0 % [facility] Hematocrit (Bld) [Volume fraction] 39.5 % 36.0 - 48.0 % [facility] Hemoglobin (Bld) [Mass/Vol] 13.7 g/dL 12.0 - 16.0 g/dL [facility] IMMATURE GRANULOCYTES ABS AUTO 0.05 High [facility] Immature granulocytes/100 WBC (Bld) 0.4 % 0.0 - 0.5 % [facility] Interpretation and review of laboratory results Abnormal [facility] LYMPHOCYTES ABSOLUTE AUTO 1.6 [facility] Lymphocytes/100 WBC (Bld) 12.6 % Low 20.5 - 60.0 % [facility] MCH (RBC) [Entitic mass] 31.9 pg 26.7 - 34.0 pg [facility] MCHC (RBC) [Mass/Vol] 34.7 g/dL 29.9 - 35.2 g/dL [facility] MCV (RBC) [Entitic vol] 92.1 fL 81.0 - 99.0 fL [facility] MONOCYTES ABSOLUTE AUTO 0.6 [facility] Monocytes/100 WBC (Bld) 5 % 1.7 - 12.0 % [facility] NEUTROPHILS ABSOLUTE AUTO 9.9 High [facility] Neutrophils/100 WBC (Bld) 79.2 % High 43.0 - 75.0 % [facility] Platelet mean volume (Bld) [Entitic vol] 11 fL 9.5 - 13.5 fL [facility] TBH EO # 0.3 [facility] PLT 226 [facility] RBC 4.29 [facility] WBC 12.5 High [facility] Glucose tolerance, 1 houron 05-04-2025 Glucose Tolerance Test 1 Hour 234 [facility] Glucose tolerance, 3 hourson 05-04-2025 Glucose Tolerance Test 3 Hour 133 [facility] Glucose, tolerance fastingon 05-04-2025 Glucose Tolerance Test Fasting 108 [facility] No Panel Informationon 05-04 [facility] US OB BPP W NON-STRESS on 05-04-2025 [place] [address] Ultrasound Report Signed Patient: VIMAL FUNES MR#: [id number] : 2000 Acct:[id number] Age/Sex: 25 / F ADM Date: 05/04/25 Loc: [place] [address]: Rossana Ramos Ordering Physician: Rossana Ramos Date of Service: 05/04/25 Procedure(s): US OB BPP w non-stress Accession Number(s): [id number] cc: Rossana Ramos; JENNIFER SEE [place] [phone] Patient Name: VIMAL FUNES MRN: [facility]:[id number] date: 2000 Sex: F Assigned Patient Location: [facility] Current Patient Location: [facility] Accession/Order Number: [id number] Exam Date: 05/04/2025 12:08 Report Date: 05/04/2025 12:09 At the request of: ROSSANA RACHEL Procedure: US OB BPP w non-stress Biophysical profile. Reason for exam: Gestational diabetes COMPARISON: None TECHNIQUE: Transabdominal imaging of the gravid uterus was obtained. FINDINGS: The manager financial reports a BPP of 8 out of 8. DANYA is normal at 12.4 cm. heart rate 150 bpm. US/US OB BPP w non-stress IMPRESSION: BPP 8 out of 8. Impression dictated by: Bulmaro Arias Jr., D.O. 05/04/2025 12:09 PM Dictation Location: [place] [address] Electronically authenticated by: [id number] Y Date: 05/04/2025 12:09 Dictated By: Bulmaro Arias M.D. Signed By: 05/04/25 1212 DD/ 1209 TD/TT: Paper Products Supervisor: [facility] Radiology, Radiologist, - 05/04/2025 [place] [address] Ultrasound Report Signed Patient: VIMAL FUNES MR#: [id number] : 2000 Acct:[id number] Age/Sex: 25 / F ADM Date: 05/04/25 Loc: [place] [address]: Rossana Ramos Ordering Physician: Rossana Ramos Date of Service: 05/04/25 Procedure(s): US OB BPP w non-stress Accession Number(s): [id number] cc: JENNIFER Watkins The [place] [phone] Patient Name: VIMAL FUNES MRN: [facility]:[id number] date: 2000 Sex: F Assigned Patient Location: [facility] Current Patient Location: [facility] Accession/Order Number: [id number] Exam Date: 05/04/2025 12:08 Report Date: 05/04/2025 12:09 At the request of: ROSSANA RAMOS Procedure: US OB BPP w non-stress Biophysical profile. Reason for exam: Gestational diabetes COMPARISON: None TECHNIQUE: Transabdominal imaging of the gravid uterus was obtained. FINDINGS: The manager financial reports a BPP of 8 out of 8. DANYA is normal at 12.4 cm. heart rate 150 bpm. US/US OB BPP w non-stress IMPRESSION: BPP 8 out of 8. Impression dictated by: Bulmaro Arias Jr., D.O. 05/04/2025 12:09 PM Dictation Location: [place] [address] Electronically authenticated by: [id number] Y Date: 05/04/2025 12:09 Dictated By: Bulmaro Arias M.D. Signed By: 05/04/25 1212 DD/ 1209 TD/TT: Paper Products Supervisor: [facility] [employer] Radiology Study observation (narrative) [facility] US OB BPP W NON-STRESS Ordered By: Radiologist Radiology on 05-04-2025 [facility] Work Phone: US OB GROWTHon 05-04-2025 [place] [address] Ultrasound Report Signed Patient: VIMAL FUNES MR#: [id number] : 2000 Acct:[id number] Age/Sex: 25 / F ADM Date: 05/04/25 Loc: [facility] 250-[address]: Rossana Ramos Ordering Physician: Rossana Ramos Date of Service: 05/04/25 Procedure(s): US OB growth Accession Number(s): [id number] cc: Rossana Ramos; JENNIFER SEE [address] [address] Patient Name: VIMAL FUNES MRN: [facility]:[id number] date: 2000 Sex: F Assigned Patient Location: [facility] Current Patient Location: [facility] Accession/Order Number: [id number] Exam Date: 05/04/2025 12:06 Report Date: 05/04/2025 [...] Jr., D.O. 05/04/2025 12:08 PM Dictation Location[facility] Electronically authenticated by: [id number] Y Date: 05/04/2025 12:08 Dictated By: Bulmaro Arias M.D. Signed By: 05/04/25 1211 DD/ 1208 TD/TT: Paper Products Supervisor: [facility] Radiology, Radiologist, - 05/04/2025 [place] [address] Ultrasound Report Signed Patient: VIMAL FUNES MR#: [id number] : 2000 Acct:[id number] Age/Sex: 25 / F ADM Date: 05/04/25 Loc: [facility] 250-[address]: Rossana Ramos Ordering Physician: Rossana Ramos Date of Service: 05/04/25 Procedure(s): US OB growth Accession Number(s): [id number] cc: Rossana Ramos; JENNIFER SEE [place] [id number] Patient Name: VIMAL FUNES MRN: [facility]:[id number] date: 2000 Sex: F Assigned Patient Location: [facility] Current Patient Location: [facility] Accession/Order Number: [id number] Exam Date: 05/04/2025 12:06 Report Date: 05/04/2025 [...] Jr., D.O. 05/04/2025 12:08 PM Dictation Location: [employer] Electronically authenticated by: [id number] Y Date: 05/04/2025 12:08 Dictated By: Bulmaro Arias M.D. Signed By: 05/04/25 1211 DD/ 1208 TD/TT: Paper Products Supervisor: [facility] Radiology Study observation (narrative) [facility] OB GROWTHOrdered By: Jemiy zayas Radiology on 05-04-2025 [facility] Healthcar e Work Phone: Urinalysis macro (dipstick) panel (U)on 04-30-2025 Bilirubin, UA Negative Negative - 4(70) +++ mg/dL [facility] Blood, UA Negative Negative - 50 Jason/mcL [facility] Clarity, UA Clear [facility] re Color, UA Yellow [facility] Glucose, UA Positive Negative - 1999(110) ++++ mg/dL [facility] Interpretation and review of laboratory results Abnormal [facility] Ketones, UA Negative Negative - 160(16) ++++ mg/dL [facility] Leukocytes, UA Positive Negative - 500+++ Carlos/mcL [facility] Nitrite, UA Negative Negative - Positive [facility] pH, UA 6 5 - 9 [facility] Protein, UA Negative Negative - 2000(20) ++++ mg/dL [facility] Spec Grav, UA 1.01 1 - 1.03 [facility] Urobilinogen, UA 1.0 0.2 - 12 mg/dL [facility] Health[facility] e ALL CBC WITH AUTO DIFFon BASOPHILS ABSOLUTE AUTO 0 [facility] Basophils/100 WBC (Bld) 0.2 % 0.2 - 2.0 % [facility] Eosinophils/100 WBC (Bld) 2.2 % 0.9 - 7.0 % [facility] Erythrocyte distribution width (RBC) [Ratio] 12.9 % 11.0 - 15.0 % [facility] Hematocrit (Bld) [Volume fraction] 40 % 36.0 - 48.0 % [facility] Hemoglobin (Bld) [Mass/Vol] 13.6 g/dL 12.0 - 16.0 g/dL [facility] IMMATURE GRANULOCYTES ABS AUTO 0.04 High [facility] Immature granulocytes/100 WBC (Bld) 0.3 % 0.0 - 0.5 % [facility] Interpretation and review of laboratory results Abnormal [facility] LYMPHOCYTES ABSOLUTE AUTO 1.4 [facility] Lymphocytes/100 WBC (Bld) 10.8 % Low 20.5 - 60.0 % [facility] MCH (RBC) [Entitic mass] 31.7 pg 26.7 - 34.0 pg [facility] MCHC (RBC) [Mass/Vol] 34 g/dL 29.9 - 35.2 g/dL [facility] MCV (RBC) [Entitic vol] 93.2 fL 81.0 - 99.0 fL [facility] MONOCYTES ABSOLUTE AUTO 0.5 [facility] Monocytes/100 WBC (Bld) 4.3 % 1.7 - 12.0 % [facility] NEUTROPHILS ABSOLUTE AUTO 10.2 High [facility] Neutrophils/100 WBC (Bld) 82.2 % High 43.0 - 75.0 % [facility] Platelet mean volume (Bld) [Entitic vol] 10.6 fL 9.5 - 13.5 fL [facility] TBH EO # 0.3 [facility] PLT [facility] e TB RBC 4.29 [facility] Health[facility] e TBH WBC 12.5 High [facility] Glucose 1h post 50g loadon 0 04-27-2025 Glucose, 1 hr PP 50GM dose 171 [facility] System No Panel Informationon 04-27 [facility] Healthcar e Urinalysis macro (dipstick) panel (U)on 04-25-2025 Bilirubin, UA Negative Negative - 4(70) +++ mg/dL [facility] Blood, UA Negative Negative - 50 Jason/mcL [facility] Clarity, UA Clear [facility] re Color, UA Yellow [facility] Healthcar e Glucose, UA Negative Negative - 2000(110) ++++ mg/dL [facility] Interpretation and review of laboratory results Normal [facility] Ketones, UA Negative Negative - 160(16) ++++ mg/dL [facility] Leukocytes, UA Negative Negative - 500+++ Carlos/mcL [facility] Healthcare Nitrite, UA Negative Negative - Positive [facility] Healthcare pH, UA 6.5 5 - 9 [facility] Health[facility] e Protein, UA Negative Negative - 1999(20) ++++ mg/dL [facility] Healthcare Spec Grav, UA 1.01 1 - 1.03 [facility] Urobilinogen, UA 0.2 0.2 - 12 mg/dL [facility] Healthcare [facility] Health[facility] e Urinalysis macro (dipstick) panel (U)on 04-11-2025 Bilirubin, UA Negative Negative - 4(70) +++ mg/dL [facility] Blood, UA Negative Negative - 50 Jason/mcL [facility] Healthcare Clarity, UA Clear [facility] re Color, UA Yellow [facility] Health[facility] e Glucose, UA Negative Negative - 1999(110) ++++ mg/dL [facility] Interpretation and review of laboratory results Normal [facility] Ketones, UA Negative Negative - 160(16) ++++ mg/dL [facility] Leukocytes, UA Negative Negative - 500+++ Carlos/mcL [facility] Healthcare Nitrite, UA Negative Negative - Positive [facility] pH, UA 7 5 - 9 [facility] Health[facility] e Protein, UA Negative Negative - 1999(20) ++++ mg/dL [facility] Healthcare Spec Grav, UA 1.005 1 - 1.03 [facility] Health care Urobilinogen, UA 1.0 0.2 - 12 mg/[facility] OB INCOMPLETE ANATOMYon 0 03-25-2025 [place] [address] Ultrasound Report Signed Patient: VIMAL FUNES MR#: [id number] : 2000 Acct:[id number] Age/Sex: 24 / F ADM Date: 03/23/25 Loc: US Attending Dr: Jose Rodriguez D.O. Ordering Physician: Jose Rodriguez D.O. Date of Service: 03/23/25 Procedure(s): US OB incomplete anatomy Accession Number(s): [id number] cc: JENNIFER SEE ; Jose Rodriguez D.O. [place] [id number] Patient Name: VIMAL FUNES MRN: [facility]:[id number] date: 2000 Sex: F Assigned Patient Location: US Current Patient Location: US Accession/Order Number: [id number] Exam Date: 03/25/2025 08:23 Report Date: 03/25/2025 [...] Brown M.D. 03/25/2025 8:25 AM Dictation Location: [place] [address] Electronically authenticated by: [id number] Y Date: 03/25/2025 08:25 Dictated By: Meghana Brown M.D. Signed By: 03/25/25826 DD/ 4 TD/TT: Paper Products Supervisor: [facility] Radiology, Radiologist, MD - 03/25/2025 [place] [address] Ultrasound Report Signed Patient: VIMAL FUNES MR#: [id number] : 2000 Acct:[id number] Age/Sex: 24 / F ADM Date: 03/23/25 Loc: US Attending Dr: Jose Rodriguez D.O. Ordering Physician: Jose Rodriguez D.O. Date of Service: 03/23/25 Procedure(s): US OB incomplete anatomy Accession Number(s): [id number] cc: JENNIFER SEE ; Jose Rodriguez D.O. [address] [address] Patient Name: VIMAL FUNES MRN: [facility]:[id number] date: 2000 Sex: F Assigned Patient Location: Current Patient Location: Accession/Order Number: [id number] Exam Date: 03/25/2025 08:23 Report Date: 03/25/2025 [...] Brown M.D. 03/25/2025 8:25 AM Dictation Location: [place] [address] Electronically authenticated by: [id number] Y Date: 03/25/2025 08:25 Dictated By: Meghana Brown M.D. Signed By: 03/25/25826 DD/ 4 TD/TT: Paper Products Supervisor: [facility] Radiology Study observation (narrative) [facility] OB INCOMPLETE ANATOMYOrde red By: Radiologist Radiology on 03-25-2025 [facility] Work Phone: Urinalysis macro (dipstick) panel (U)on 03-14-2025 Bilirubin, UA Negative Negative - 4(70) +++ mg/dL [facility] Blood, UA Negative Negative - 50 Jason/mcL [facility] Clarity, UA Clear [facility] Healthca re Color, UA Yellow [facility] Glucose, UA Negative Negative - 2000(110) ++++ mg/dL [facility] Interpretation and review of laboratory results Normal [facility] Ketones, UA Negative Negative - 160(16) ++++ mg/dL [facility] Leukocytes, UA Negative Negative - 500+++ Carlos/mcL [facility] Nitrite, UA Negative Negative - Positive [facility] pH, UA 7 5 - 9 [facility] [employer] Protein, UA Negative Negative - 2000(20) ++++ mg/dL [facility] Spec Grav, UA 1.01 1 - 1.03 [facility] Urobilinogen, UA 0.2 0.2 - 12 mg/dL [facility] Health[facility] No Panel InformationOrdered By: Radiologist Radiology on 03-08-2025 [facility] [employer] Work Phone: No Panel Informationon 03-08 Radiology Study observation (narrative) [facility] US OB ANATOMYon 03-08-2025 [place] [address] Ultrasound Report Signed Patient: VIMAL FUNES MR#: [id number] : 2000 Acct:[id number] Age/Sex: 24 / F ADM Date: 03/08/25 Loc: US Attending Dr: Jose Rodriguez D.O. Ordering Physician: Jose Rodriguez D.O. Date of Service: 03/08/25 Procedure(s): US OB anatomy Accession Number(s): [id number] cc: JENNIFER SEE ; Jose Rodriguez D.O. [address] [address] Patient Name: VIMAL FUNES MRN: [facility]:[id number] date: 2000 Sex: F Assigned Patient Location: US Current Patient Location: US Accession/Order Number: [id number] Exam Date: 03/08/2025 20:31 Report Date: 03/08/2025 [...] Knapp M.D. 03/08/2025 8:36 PM [facility]ictation [facility] Electron[facility] authenticated by: [id number] Y Date: 03/08/2025 20:36 Dictated By: Shivam Knapp D.O. Signed By: 03/08/252037 DD/ 35 TD/TT: Paper Products Supervisor: [facility] Radiology, Radiologist, MD - 03/08/2025 [place] [address] Ultrasound Report Signed Patient: VIMAL FUNES MR#: [id number] : 2000 Acct:[id number] Age/Sex: 24 / F ADM Date: 03/08/25 Loc: US Attending Dr: Jose Rodriguez D.O. Ordering Physician: Jose Rodriguez D.O. Date of Service: 03/08/25 Procedure(s): US OB anatomy Accession Number(s): [id number] cc: JENNIFER SEE Corey D.O. [place] [id number] Patient Name: VIMAL FUNES MRN: [facility]:[id number] date: 2000 Sex: F Assigned Patient Location: US Current Patient Location: US Accession/Order Number: [id number] Exam Date: 03/08/2025 20:31 Report Date: 03/08/2025 [...] 03/08/2025 8:36 PM Dictation Location: [place] [address] Electronically authenticated by: [id number] Y Date: 03/08/2025 20:36 Dictated By: Shivam Knapp D.O. Signed By: 03/08/252037 DD/ 35 TD/TT: Paper Products Supervisor: [facility] US OB CERVICAL LENGTHon 02-24 [place] [address] Ultrasound Report Signed Patient: VIMAL FUNES MR#: [id number] : 2000 Acct:[id number] Age/Sex: 24 / F ADM Date: 03/08/25 Loc: US Attending Dr: Jose Rodriguez D.O. Ordering Physician: Jose Rodriguez D.O. Date of Service: 03/08/25 Procedure(s): US OB cervical length Accession Number(s): [id number] cc: JENNIFER SEE ; Jose Rodriguez D.O. [address] [address] Patient Name: VIMAL FUNES MRN: [facility]:[id number] date: 2000 Sex: F Assigned Patient Location: US Current Patient Location: US Accession/Order Number: [id number] Exam Date: 03/08/2025 20:31 Report Date: 03/08/2025 [...] 03/08/2025 8:36 PM Dictation Location: [place] [address] Electronically authenticated by: [id number] Y Date: 03/08/2025 20:36 Dictated By: Shivam Knapp D.O. Signed By: 03/08/252037 DD/ 35 TD/TT: Paper Products Supervisor: [facility] Radiology, Radiologist, MD - 03/08/2025 [place] [address] Ultrasound Report Signed Patient: VIMAL FUNES MR#: [id number] : 2000 Acct:[id number] Age/Sex: 24 / F ADM Date: 03/08/25 Loc: US Attending Dr: Jose Rodriguez D.O. Ordering Physician: Jose Rodriguez D.O. Date of Service: 03/08/25 Procedure(s): US OB cervical length Accession Number(s): [id number] cc: JENNIFER SEE ; Jose Rodriguez D.O. [place] [address] Patient Name: VIMAL FUNES MRN: [facility]:[id number] date: 2000 Sex: F Assigned Patient Location: US Current Patient Location: US Accession/Order Number: [id number] Exam Date: 03/08/2025 20:31 Report Date: 03/08/2025 [...] 03/08/2025 8:36 PM Dictation Location: [place] [address] Electronically authenticated by: [id number] Y Date: 03/08/2025 20:36 Dictated By: Shivam Knapp D.O. Signed By: 03/08/252037 DD/ 35 TD/TT: Paper Products Supervisor: [facility] IGP,APTIMA HPV,AGE GDLNon AGE GDLN ACOG TESTING Note . [facility] Comment on above: TESTS RESULT FLAG UN ITS REF RANGE LAB Clinician Provided Cytology Information Source.............Endocervix No. of containers..01 ThinPrep Vial Age Algo ACOG Yris... FLAG LEGEND: L-Low Normal,H-High Normal,LL-Alert Low,HH-Alert High <-Panic Low,>-Panic High,A-Abnormal,AA-Critical Abnormal Performed at: 01 =G [facility] [address] Jenise Byrne MD, IGP, RFX APTIMA HPV ASCU Note . [facility] Comment on above: TESTS RESULT FLAG UN [facility] REF RANGE LAB DIAGNOSIS: 02 NEGATIVE FOR INTRAEPITHELIAL LESION OR MALIGNANCY. Specimen adequacy: 02 Satisfactory for evaluation. Endocervical and/or squamous metaplastic cells (endocervical component) are present. Performed by: 02 Whitney Alvarez Geoscience Professor (ASC) . 02 Note: Note 02 The [...] <-Panic Low,>-Panic High,A-Abnormal,AA-Critical Abnormal Performed at: [address] [address] Jenise Byrne MD, Performed at: = - [address] [id number] Rip Saw Operator: Jenise Byrne MD, Phone: [phone] Performed at: [address] [id number] Rip Saw Operator: Jenise Byrne MD, Phone: [phone] SPATULA-ALONE ENDOCERVIX [facility] Healthcar e RECURRENT VAGINITIS (HTRX)on 02-22-2025 ATOPOBIUM VAGINAE 0 [facility] ATOPOBIUM VAGINAE Not detected [facility] BVAB 2,3 (BACTERIAL VAGINOSIS ASSOCIATED BACTERIA 2, 3); MOBILUNCUS SPP 0 [facility] BVAB 2,3 (BACTERIAL VAGINOSIS ASSOCIATED BACTERIA 2, 3); MOBILUNCUS SPP Not detected [facility] SIMEON ALBICANS, PARAPSILOSIS, TROPICALIS 0 [facility] SIMEON ALBICANS, PARAPSILOSIS, TROPICALIS Not detected [facility] Healthcare SIMEON GLABRATA 0 [facility] SIMEON GLABRATA Not detected [facility] SIMEON KRUSEI 0 [facility] SIMEON KRUSEI Not detected [facility] CHLAMYDIA TRACHOMATIS 0 [facility] CHLAMYDIA TRACHOMATIS Not detected N [facility] GARDNERELLA VAGINALIS 0 [facility] GARDNERELLA VAGINALIS Not detected N [facility] MEGASPHAERA (TYPES 1, 2) 0 [facility] MEGASPHAERA (TYPES 1, 2) Not detected [facility] MYCOPLASMA GENITALIUM 0 [facility] MYCOPLASMA GENITALIUM Not detected N [facility] Healthcare NEISSERIA GONORRHOEAE 0 [facility] NEISSERIA GONORRHOEAE Not detected N [facility] Healthcare TRICHOMONAS VAGINALIS 0 [facility] TRICHOMONAS VAGINALIS Not detected [facility] Urinalysis macro (dipstick) panel (U)on 02-20-2025 Bilirubin, UA Negative Negative - 4(70) +++ mg/dL [facility] Blood, UA Negative Negative - 50 Jason/mcL [facility] Clarity, UA Clear [facility] Healthca re Color, UA Yellow [facility] Healthcar e Glucose, UA Negative Negative - 1999(110) ++++ mg/dL [facility] Interpretation and review of laboratory results Abnormal [facility] Ketones, UA Negative Negative - 160(16) ++++ mg/dL [facility] Leukocytes, UA Negative Negative - 500+++ Carlos/mcL [facility] Nitrite, UA Negative Negative - Positive [facility] pH, UA 7 5 - 9 [facility] Healthcar e Protein, UA Negative Negative - 1999(20) ++++ mg/dL [facility] Spec Grav, UA 1.01 1 - 1.03 [facility] Urobilinogen, UA 0.2 0.2 - 12 mg/[facility] Unlisted Lab Teston 01-16-20 [facility] Urinalysis macro (dipstick) panel (U)on 01-14-2025 Bilirubin, UA Negative Negative - 4(70) +++ mg/dL [facility] Blood, UA Positive Negative - 50 Jason/mcL [facility] Comment on above: trace-intact Clarity, UA Clear [facility] re Color, UA Yellow [facility] Glucose, UA Negative Negative - 1999(110) ++++ mg/dL [facility] Interpretation and review of laboratory results Abnormal [facility] Ketones, UA Negative Negative - 160(16) ++++ mg/dL [facility] Leukocytes, UA Negative Negative - 500+++ Acrlos/mcL [facility] Nitrite, UA Negative Negative - Positive [facility] pH, UA 6 5 - 9 [facility] Protein, UA Negative Negative - 1999(20) ++++ mg/dL [facility] Spec Grav, UA 1.005 1 - 1.03 [facility] Urobilinogen, UA 0.2 0.2 - 12 mg/dL [facility] Health[facility] Free Cell DNA (Non-Pro Medica Send Out)on 01-13-2025 [facility] ALL CBC WITH AUTO DIFFon BASOPHILS ABSOLUTE AUTO 0 [facility] Basophils/100 WBC (Bld) 0.4 % 0.2 - 2.0 % [facility] Eosinophils/100 WBC (Bld) 1.7 % 0.9 - 7.0 % [facility] Erythrocyte distribution width (RBC) [Ratio] 12.3 % 11.0 - 15.0 % [facility] IMMATURE GRANULOCYTES ABS AUTO 0.02 [facility] Immature granulocytes/100 WBC (Bld) 0.2 % 0.0 - 0.5 % [facility] Interpretation and review of laboratory results Abnormal [facility] LYMPHOCYTES ABSOLUTE AUTO 1.4 [facility] Lymphocytes/100 WBC (Bld) 15.4 % Low 20.5 - 60.0 % [facility] MCH (RBC) [Entitic mass] 31.6 pg 26.7 - 34.0 pg [facility] MCHC (RBC) [Mass/Vol] 34.6 g/dL 29.9 - 35.2 g/dL [facility] MCV (RBC) [Entitic vol] 91.4 fL 81.0 - 99.0 fL [facility] MONOCYTES ABSOLUTE AUTO 0.5 [facility] Monocytes/100 WBC (Bld) 5.4 % 1.7 - 12.0 % [facility] NEUTROPHILS ABSOLUTE AUTO 7 High [facility] Neutrophils/100 WBC (Bld) 76.9 % High 43.0 - 75.0 % [facility] Platelet mean volume (Bld) [Entitic vol] 10.1 fL 9.5 - 13.5 fL [facility] TB EO # 0.2 [facility] e TB PLT 216 [facility] with [facility] e TBH RBC 4.65 [facility] e TB WBC 9.2 [facility]ed with [facility] e [facility] CBC without diffOrdered By: Lay Peacock on 01-05-2025 Rbc Mcv (Fl) By Automated Count 91.4 [facility] Drug Screen, Urineon 025 Amphetamine/Methamphet amine Negative [facility] Barbiturates Negative [facility] Benzodiazepines Negarive [facility] Cocaine Metabolite Negative [facility] Ecstasy Negative [facility] Methadone Negative [facility] Opiates Negative [facility] Phencyclidine Negative [facility] Thc Marijuana, Urine Negative [facility] HBV surface Ag IA Qlon 01-05 Hepatitis B Surface Antigen Negative [facility] HIV 1+2 Ab+HIV1 p24 Ag IA Ql on 01-05-2025 HIV 1&2 AB/AG Non-Reactive [facility] Hemoglobin A1con 01-05-2025 HbA1c (Bld) [Mass fraction] 5 % 4.0 - 6.0 % [facility] Laboratory - Hematology and Cell countson 01-05-2025 Hematocrit (Bld) [Volume fraction] 42.5 % [facility] Hemoglobin (Bld) [Mass/Vol] 14.7 g/dL [facility] No Panel Informationon 01-05 [facility] e Rubella IGG immune statuson 01-05-2025 Rubella immune IgG 1.57 [facility] Type and screenon 01-05-2025 Abo/Rh(D) Positive [facility] US OB TRANSVAGINALon 025 US OB TRANSVAGINAL [...] II, MD, PHD at 14-Dec-2024 08:35:59 PM [facility] Normal Not Available Comment on above: Order Comment: US OB TRANSVAGINAL No LMP recorded. TBH PREG QUANT HCGon 11-21- 025 HCG QUANTITATIVE 52781 mIU/mL [facility] Comment on above: 5-50 0.2-1 WEEK 50-500 1-2 WEEKS 100-5,000 2-3 WEEKS 500-10,000 3-4 WEEKS 1,000-50,000 4-5 WEEKS 10,000-100,000 5-6 WEEKS 15,000-200,000 6-8 WEEKS 10,000-100,000 2-3 [facility] TBH PREG QUANT HCGon 025 HCG QUANTITATIVE 6254 mIU/mL [facility] ltare Comment on above: 5-50 0.2-1 WEEK 50-500 1-2 WEEKS 100-5,000 2-3 WEEKS 500-10,000 3-4 WEEKS 1,000-50,000 4-5 WEEKS 10,000-100,000 5-6 WEEKS 15,000-200,000 6-8 WEEKS 10,000-100,000 2-3 [facility] TBH PREG QUANT HCGon 024 HCG QUANTITATIVE 6 mIU/mL [facility] ltare Comment on above: 5-50 0.2-1 WEEK 50-500 1-2 WEEKS 100-5,000 2-3 WEEKS 500-10,000 3-4 WEEKS 1,000-50,000 4-5 WEEKS 10,000-100,000 5-6 WEEKS 15,000-200,000 6-8 WEEKS 10,000-100,000 2-3 MONTHS [facility] ALL CBC WITH AUTO DIFFon BASOPHILS ABSOLUTE AUTO 0 [facility] Basophils/100 WBC (Bld) 0.5 % 0.2 - 2.0 % [facility] Eosinophils/100 WBC (Bld) 6.2 % 0.9 - 7.0 % [facility] Healthcare Erythrocyte distribution width (RBC) [Ratio] 11.9 % 11.0 - 15.0 % [facility] Hematocrit (Bld) [Volume fraction] 43.8 % 36.0 - 48.0 % [facility] [facility] Hemoglobin (Bld) [Mass/Vol] 14.8 g/dL 12.0 - 16.0 g/dL [facility] IMMATURE GRANULOCYTES ABS AUTO 0.02 [facility] Immature granulocytes/100 WBC (Bld) 0.2 % 0.0 - 0.5 % [facility] Healthcare LYMPHOCYTES ABSOLUTE AUTO 2 [facility] Lymphocytes/100 WBC (Bld) 22.1 % 20.5 - 60.0 % [facility] MCH (RBC) [Entitic mass] 31.7 pg 26.7 - 34.0 pg [facility] MCHC (RBC) [Mass/Vol] 33.8 g/dL 29.9 - 35.2 g/dL [facility] MCV (RBC) [Entitic vol] 93.8 fL 81.0 - 99.0 fL [facility] MONOCYTES ABSOLUTE AUTO 0.5 [facility] Monocytes/100 WBC (Bld) 5.3 % 1.7 - 12.0 % [facility] NEUTROPHILS ABSOLUTE AUTO 5.8 [facility] Neutrophils/100 WBC (Bld) 65.7 % 43.0 - 75.0 % [facility] Platelet mean volume (Bld) [Entitic vol] 10 fL 9.5 - 13.5 fL [facility] TBH EO # 0.6 [facility] PLT 236 [facility] RBC 4.67 [facility] WBC 8.9 [facility] [place] 08-10-2024 L Specimen: [id number] Received: 08/10/24 Status: CAROL Hoang Num: [id number] Spec Type: Surgical Subm Dr: Jose Rodriguez Tissues: A Products of Conception - Spontaneous or Missed (CONTENTS OF CONCEPT Procedures: HE/2Odell/Agusto L4 Age/ Patient Sex Location Account Attending Physician Vimal Funes / LABELL [id number] Jose Rodriguez SPEC NUM: [id number] RECD: 08/10/24 STATUS: SOUT REQ NUM: [id number] CAROLIN: 08/10/[address]: Jose Rodriguez ENTERED: 08/10/24 [facility] DR: Rafia,Lab SPEC TYPE: Surgical DEPT: MONICA ALTMAN ENTERED BY: [id number] REC BY: [id number] ORDERED: HE/2, Gross/Micro L4 ORDERED: HE/2, Gross/Micro [...] villi and decidua. No tissue is identified. Copper Etcher sections of the chorionic villi are submitted in cassette A1 with housing management representative sections of the decidua is submitted in cassette A2. (2, ss, [id number]) CPT Codes 65696 Specimen: [id number] Received: 08/10/24 Status: CAROL Hoang Num: [id number] Spec Type: Surgical Subm Dr: Jose Rodriguez Tissues: A Products of Conception - Spontaneous or Missed (CONTENTS OF CONCEPT Procedures: HE/2, Gross/Micro L4 Patient: Vimal Funes [id number] (Continued) Signed (signature on file) Josh Aragon MD 08/13/24 1647 Normal [facility] TB PREG QUANT HCGon 08-10- 024 HCG QUANTITATIVE 240 mIU/mL [facility] Comment on above: 5-50 0.2-1 WEEK 50-500 1-2 WEEKS 100-5,000 2-3 WEEKS 500-10,000 3-4 WEEKS 1,000-50,000 4-5 WEEKS 10,000-100,000 5-6 WEEKS 15,000-200,000 6-8 WEEKS 10,000-100,000 2-3 MONTHS [facility] Healthcar e ALL CBC WITH AUTO DIFFon BASOPHILS ABSOLUTE AUTO 0.1 [facility] Basophils/100 WBC (Bld) 0.5 % 0.2 - 2.0 % [facility] Eosinophils/100 WBC (Bld) 2.8 % 0.9 - 7.0 % [facility] Erythrocyte distribution width (RBC) [Ratio] 11.9 % 11.0 - 15.0 % [facility] Hematocrit (Bld) [Volume fraction] 44.7 % 36.0 - 48.0 % [facility] Hemoglobin (Bld) [Mass/Vol] 15.3 g/dL 12.0 - 16.0 g/dL [facility] IMMATURE GRANULOCYTES ABS AUTO 0.03 [facility] Immature granulocytes/100 WBC (Bld) 0.3 % 0.0 - 0.5 % [facility] Interpretation and review of laboratory results Abnormal [facility] LYMPHOCYTES ABSOLUTE AUTO 1.6 [facility] Lymphocytes/100 WBC (Bld) 14.9 % Low 20.5 - 60.0 % [facility] MCH (RBC) [Entitic mass] 31.7 pg 26.7 - 34.0 pg [facility] MCHC (RBC) [Mass/Vol] 34.2 g/dL 29.9 - 35.2 g/dL [facility] MCV (RBC) [Entitic vol] 92.7 fL 81.0 - 99.0 fL [facility] MONOCYTES ABSOLUTE AUTO 0.4 [facility] Monocytes/100 WBC (Bld) 3.7 % 1.7 - 12.0 % [facility] NEUTROPHILS ABSOLUTE AUTO 8.2 High [facility] Neutrophils/100 WBC (Bld) 77.8 % High 43.0 - 75.0 % [facility] Platelet mean volume (Bld) [Entitic vol] 10 fL 9.5 - 13.5 fL [facility] TB EO # 0.3 [facility] PLT 263 [facility] RBC 4.82 [facility] TB WBC 10.6 [facility] No Panel Informationon 07-21 M[facility]ed [facility] DRUG SCREEN RAPID (URINE )on 07-21-2024 AMPHETAMINE SCREEN URINE Negative NEGATIVE [facility] BARBITURATES SCREEN URINE Negative NEGATIVE [facility] BENZODIAZEPINES SCREEN URINE Negative NEGATIVE [facility] BUPRENORPHINE SCREEN URINE Negative NEGATIVE [facility] Comment on above: DRUG CLASS [...] 300 ng/mL CANNABINOID SCREEN URINE Negative NEGATIVE [facility] COCAINE SCREEN URINE Negative NEGATIVE [facility] METHADONE SCREEN URINE Negative NEGATIVE NO [facility] METHAMPHETAMINES SCREEN URINE Negative NEGATIVE [facility] OPIATE SCREEN URINE Negative NEGATIVE [facility] OXYCODONE SCREEN URINE Negative NEGATIVE NO [facility] PHENCYCLIDINE SCREEN URINE Negative NEGATIVE [facility] TRICYCLIC ANTIDEPRESSANT URINE Negative NEGATIVE [facility] REEFLEX IF POSITIVE [facility] HCG ( test) Ql (U)o n 06-29-2024 Interpretation and review of laboratory results Abnormal [facility] Preg Test, Ur Positive [facility] Urinalysis macro (dipstick) panel (U)on 06-29-2024 Bilirubin, UA Negative Negative - 4(70) +++ mg/dL [facility] Blood, UA Negative Negative - 50 Jason/mcL [facility] Clarity, UA Clear [facility] Color, UA Yellow [facility] Glucose, UA Negative Negative - 1999(110) ++++ mg/dL [facility] Interpretation and review of laboratory results Normal [facility] Ketones, UA Negative Negative - 160(16) ++++ mg/dL [facility] Leukocytes, UA Negative Negative - 500+++ Carlos/mcL [facility] Nitrite, UA Negative Negative - Positive [facility] pH, UA 7.0 5 - 9 [facility] Health[facility] Protein, UA Negative Negative - 1999(20) ++++ mg/dL [facility] Spec Grav, UA 1.015 1 - 1.03 [facility] Urobilinogen, UA 0.2 0.2 - 12 mg/[facility] XR hand RT min 3V*on 023 XR hand RT min 3V* [facility] [employer] Other XR hand RT min 3V* [facility] [employer] Other XR hand RT min 3V* [address] [facility] [employer] Other XR hand RT min 3V* [place] [address] [facility] [employer] Other XR hand RT min 3V* XRay Report [facility] [employer] Other XR hand RT min 3V* Signed [employer] Other XR hand RT min 3V* Patient: Vimal Funes MR#: [id number] [employer] Other XR hand RT min 3V* 18 [employer] Other XR hand RT min 3V* : 2000 Acct:[id number] [employer] Other XR hand RT min 3V* Age/Sex: 22 / F ADM Date: 12/26/22 [employer] Other XR hand RT min 3V* Loc: XDUCLY Room: Type: [facility] [employer] Other XR hand RT min 3V* Attending Dr: Jennifer GIL [employer] Other XR hand RT min 3V* Copies to: JEFFERY Rodriguez [employer] Other XR hand RT min 3V* Ordering Provider: JEFFERY Rodriguez [employer] Other XR hand RT min 3V* Date of Service: 12/26/22 [employer] Other XR hand RT min 3V* XR/XR hand RT min 3V*: RIGHT HAND INJURY [employer] Other XR hand RT min 3V* RIGHT HAND - 4 views [employer] Other XR hand RT min 3V* REASON FOR EXAM: Patient had right thumb hyperextended yesterday when trying to open the door. Now [employer] Other XR hand RT min 3V* with pain. [employer] Other XR hand RT min 3V* COMPARISON: None [employer] Other XR hand RT min 3V* FINDINGS: [employer] Other XR hand RT min 3V* No focal soft tissue abnormality. There appears to be avulsion fracture involving the base of the [employer] Other XR hand RT min 3V* distal phalanx of the thumb. Joint spaces appear maintained. No bony erosions. [employer] Other XR hand RT min 3V* XR/XR hand RT min 3V* [employer] Other XR hand RT min 3V* IMPRESSION: [employer] Other XR hand RT min 3V* AVULSION FRACTURE INVOLVING THE BASE OF THE DISTAL PHALANX OF THE THUMB. [employer] Other XR hand RT min 3V* Impression dictated by: Bulmaro Arias Jr., DGeneOGene12/26/2022 1:44 PM [facility] Other XR hand RT min 3V* Dictation Location: [facility] [employer] Other XR hand RT min 3V* Transcribed By: PWS 12/26/22 [facility] [employer] Other XR hand RT min 3V* Dictated By: Bumlaro Arias Jr, DO 12/26/22 [facility] [employer] Other XR hand RT min 3V* Signed By: [employer] Other XR hand RT min 3V* 12/26/[address] [place] [address] Your Image by [employer] Other PAP ACOG PANEL 2: 22 to 30on 11-09-2022 . . Normal [facility] Comment on above: Performed By: #### [id number] ####[facility] [address] [address]DrGene Mancini Age Gdln ACOG Testing 22- Normal [facility] Comment on above: Performed By: #### [id number] ####[facility] [address] [place] [id number] Mancini DIAGNOSIS: Comment Normal [facility] Comment on above: Result Comment: NEGA TIVE FOR INTRAEPITHELIAL LESION OR MALIGNANCY. Performed By: #### 4 [id number] ####[facility] [address] [place], [place] [address]Dr. Donis Mancini Methodology: Comment Normal [facility] Comment on above: Result Comment: This liquid based ThinPrep(R) pap test was screened with the use of an image guided system. Performed By: #### [id number] ####[facility] [address] [place], [place] [address]Dr. Donis Mancini Note: Comment Normal [facility] Comment on above: Result Comment: The Pap smear is a screening test designed to aid in the detection of premalignant and malignant conditions of the uterine cervix. It is not a diagnostic procedure and should not be used as the sole means of detecting cervical cancer. Both false-positive and false-negative reports do occur. . Performed By: #### 4 [id number] ####[place] [address]Dr. Donis Mancini Performed by: Comment Normal [facility] Comment on above: Result Comment: Zuleima Lin, Ice Grinder (ASCP) Performed By: #### [id number] ####[place] [address]DrGene Mancini Reflex Criteria: Comment [facility] Comment on above: Result Comment: The HPV DNA reflex criteria were not met with this specimen result therefore, no HPV testing was performed. . Performed By: #### [id number] ####[facility] [address] [place], [place] [address]Dr. Donis Mancini Specimen adequacy: Comment Normal [facility] Comment on above: Result Comment: Sati sfactory for evaluation. Endocervical and/or squamous metaplastic cells (endocervical component) are present. Performed By: #### 4 [id number] ####[facility] [address] [place], [place] [address]Dr. Donis Mancini Cytology Cervical or vaginal smear or scraping studyOrdered By: Jael Nix on 11-02-2022 [facility] CBC AUTO DIFFon 08-11-2022 BASO # 0.0 103/ul Normal 0.0-0.1 [facility] Comment on above: Performed By: #### C T/NGNA #### [facility] Laboratory [address] [place] [address] Dr. Donis Mancini Basophils/100 WBC (Bld) 0.2 % Normal 0.2-2.0 [facility] Comment on above: Performed By: #### C T/NGNA #### [facility] Laboratory [address] [place] [address] Dr. Donis Mancini EO # 0.1 103/ul Normal 0.0-0.7 [facility] Comment on above: Performed By: #### C T/NGNA #### [facility] Laboratory [address] [place] [address] Dr. Donis Mancini Eosinophils/100 WBC (Bld) 0.5 % Critically low 0.9-7.0 [facility] Comment on above: Performed By: #### C T/NGNA #### [facility] Laboratory [address] [place] [address] Dr. Donis Mancini Erythrocyte distribution width (RBC) [Ratio] 12.5 % Normal 11.0-15.0 [facility] Comment on above: Performed By: #### C T/NGNA #### [facility] [address] [place] [address] Dr. Donis Mancini Hematocrit (Bld) [Volume fraction] 35.9 % Critically low 36.0-48.0 [facility] Comment on above: Performed By: #### C T/NGNA #### [facility] Laboratory [address] [place] [address] Dr. Donis Mancini Hemoglobin (Bld) [Mass/Vol] 12.4 g/dL Normal 12.0-16.0 [facility] Comment on above: Result Comment: michelet ent delivered Performed By: #### C T/NGNA #### [facility] Laboratory [address] [place] [address] Dr. Donis Mancini IG # 0.10 10e3/ul Critically high 0.00-0.03 [facility] Comment on above: Performed By: #### C T/NGNA #### [facility] Laboratory [address] [place] [address] Dr. Donis Mancini IG % 0.5 % Normal 0.0-0.5 [facility] Comment on above: Performed By: #### C T/NGNA #### [facility] Laboratory [address] [address] [address] Donis Mancini LYMPH # 1.5 103/ul Normal 1.2-3.8 [facility] Comment on above: Performed By: #### C T/NGNA #### [facility] Laboratory [address] [place] [address] Dr. Donis Mancini Lymphocytes/100 WBC (Bld) 7.6 % Critically low 20.5-60.0 [facility] Comment on above: Performed By: #### C T/NGNA #### [facility] Laboratory [address] [place] [address] Dr. Donis Mancini MANUAL DIFF REQ NO Normal [facility] Comment on above: Performed By: #### C T/NGNA #### [facility] [address] [place] [address] Dr. Donis Mancini MCH (RBC) [Entitic mass] 32.2 pg Normal 26.7-34.0 [facility] Comment on above: Performed By: #### C T/NGNA #### [facility] Laboratory [address] [place] [address] Dr. Donis Mancini MCHC (RBC) [Mass/Vol] 34.5 g/dL Normal 29.9-35.2 [facility] Comment on above: Performed By: #### C T/NGNA #### [facility] Laboratory [address] [place] [address] Dr. Donis Mancini MCV (RBC) [Entitic vol] 93.2 fL Normal 81.0-99.0 [facility] Comment on above: Performed By: #### C T/NGNA #### [facility] Laboratory [address] [place] [address] Dr. Donis Mancini MONO # 1.3 103/ul Critically high 0.3-0.8 [facility] Comment on above: Performed By: #### C T/NGNA #### [facility] Laboratory [address] [address] [address] Donis Mancini Monocytes/100 WBC (Bld) 6.8 % Normal 1.7-12.0 [facility] Comment on above: Performed By: #### C T/NGNA #### [facility] Laboratory [address] [address] [address] Donis Mancini NEUT # 16.2 103/ul Critically high 1.4-6.5 [facility] Comment on above: Performed By: #### C T/NGNA #### [facility] Laboratory [address] [address] [address] Donis Mancini Neutrophils/100 WBC (Bld) 84.4 % Critically high 43.0-75.0 [facility] Comment on above: Performed By: #### C T/NGNA #### [facility] Laboratory [address] [place] [address] Dr. Donis Mancini Platelet mean volume (Bld) [Entitic vol] 11.8 fL Normal 9.5-13.5 [facility] Comment on above: Performed By: #### C T/NGNA #### [facility] Laboratory [address] [place] [address] Dr. Donis Mancini PLT 156 103/ul Normal 150-450 [facility] Comment on above: Performed By: #### C T/NGNA #### [facility] Laboratory [address] [place] [address] Dr. Donis Mancini RBC 3.85 106/ul Critically low 4.20-5.40 [facility] Comment on above: Performed By: #### C T/NGNA #### [facility] Laboratory [address] [place] [address] Dr. Donis Mancini WBC 19.2 103/ul Critically high 4.0-11.0 [facility] Comment on above: Performed By: #### C T/NGNA #### [facility] Laboratory [address] [place] [address] Dr. Donis Mancini Covid-19 PCR (CVDTB)on 07-27 SARS-CoV-2 (COVID-19) RNA INESSA+probe Ql (Unsp spec) Not detected Normal NOT DETECTED [facility] Comment on above: Result Comment: When diagnostic [...] for this test is supported by the Power Shovel Operator of Health and Human Service's declaration [...] be used). Performed By: #### C VDTBH ####[facility] [address] [place], [place] [address]Dr. Donis [facility] DRUG SCREEN RAPID (URINE)on 08-10-2022 AMP Negative Normal NEGATIVE [facility] Comment on above: Performed By: #### D RUGRPD ####[facility] [address] [place], [place] [address]Dr. Donis [facility] BAR Negative Normal NEGATIVE [facility] Comment on above: Performed By: #### D RUGRPD ####[facility] [address] [place] [address]Dr. Donis Mancini BUP Negative Normal NEGATIVE [facility] Comment on above: Performed By: #### D RUGRPD ####[facility] [address] [place] [address]Dr. Donis [facility] BZO Negative Normal NEGATIVE [facility] Comment on above: Performed By: #### D RUGRPD ####[facility] [address] [place] [address]Dr. Donis Mancini ALEXA Negative Normal NEGATIVE [facility] Comment on above: Performed By: #### D RUGRPD ####[facility] [address] [place], [place] [address]Dr. Donis Mancini CUT-OFFS SEE BELOW Normal [facility] Comment on above: Result Comment: AMP (Amphetamine): 500ng/mL, BAR (Barbituates): 200 ng/mL, BZO (Benzodiazepines): 150 ng/mL, BUP (Buprenorphine): 10 ng/mL, ALEXA (Cocaine): 150 ng/mL, mAMP (Methamphetamine): 500 ng/mL, MTD (Methadone): 200 ng/mL, OPI (Opiates): 100 ng/mL, OXY (Oxycodone): 100 ng/mL, PCP (Phencyclidine): 25 ng/mL, PPX (Propoxyphene): 300 ng/mL, THC (Cannabinoids): 50 ng/mL, TCA (Trycyclic Antidepressants): 300 ng/mL Performed By: #### D RUGRPD ####[facility] [address] [place], [place] [address]Dr. Donis Mancini DRUG CUT HEADER DRUG CLASS TEST SYSTEM CUT-OFF CONCENTRATIONS ARE FOLLOWS: Normal [facility] Comment on above: Performed By: #### D RUGRPD ####[facility] [address] [place], [place] [address]Dr. Donis Mancini mAMP Negative Normal NEGATIVE [facility] Comment on above: Performed By: #### D RUGRPD ####[facility] [address] [place], [place] [address]Dr. Donis Mancini MTD Negative Normal NEGATIVE [facility] Comment on above: Performed By: #### D RUGRPD ####[facility] [address] [place], [place] [address]Dr. Donis Mancini OPI Negative Normal NEGATIVE [facility] Comment on above: Performed By: #### D RUGRPD ####[facility] [address] [place], [place] [address]Dr. Donis Mancini OXY Negative Normal NEGATIVE [facility] Comment on above: Performed By: #### D RUGRPD ####[facility] [address] [place], [place] [address]Dr. Donis Mancini PCP Negative Normal NEGATIVE [facility] Comment on above: Performed By: #### D RUGRPD ####[facility] [address] [place] [address]Dr. Donis Mancini PPX Negative Normal NEGATIVE [facility] Comment on above: Performed By: #### D RUGRPD ####[facility] [address] [place] [id number]. Donis Mancini TCA Negative Normal NEGATIVE [facility] Comment on above: Performed By: #### D RUGRPD ####[facility] [address] [place] [id number]. Donis Mancini THC Negative Normal NEGATIVE [facility] Comment on above: Performed By: #### D RUGRPD ####[facility] [address] [place] [address]Dr. Donis Mancini TYPE AND SCREENon 08-10-2022 TYPE AND SCREEN Negative Normal [facility] Comment on above: Performed By: #### T NS ####[facility] [address] [place], [place] [address]Dr. Donis Mancini US PREG BIOPHY W NON [...] ESTEFANY BENNETT Date: 2022-08-10 07:18 Normal [facility] US PREG GROWTHon 08-10-2022 US PREG GROWTH [...] ESTEFANY BENNETT Date: 2022-08-10 07:16 Normal [facility] CBC AUTO DIFFon 08-09-2022 BASO # 0.0 103/ul Normal 0.0-0.1 [facility] Comment on above: Performed By: #### C BC ####[facility] [address] [place] [address]Dr. Donis Mancini Basophils/100 WBC (Bld) 0.2 % Normal 0.2-2.0 [facility] Comment on above: Performed By: #### C BC ####[facility] [address] [address]DrGene Mancini EO # 0.4 103/ul Normal 0.0-0.7 [facility] Comment on above: Performed By: #### C BC ####[facility] [address] [address]DrGene Mancini Eosinophils/100 WBC (Bld) 2.8 % Normal 0.9-7.0 [facility] Comment on above: Performed By: #### C BC ####[facility] [address] [place], [place] [address]DrGene Mancini Erythrocyte distribution width (RBC) [Ratio] 12.2 % Normal 11.0-15.0 [facility] Comment on above: Performed By: #### C BC ####[facility] [address] [place], [place] [address]DrGene Mancini Hematocrit (Bld) [Volume fraction] 41.4 % Normal 36.0-48.0 [facility] Comment on above: Performed By: #### C BC ####[facility] [address] [address]Dr. Donis Mancini Hemoglobin (Bld) [Mass/Vol] 14.4 g/dL Normal 12.0-16.0 [facility] Comment on above: Performed By: #### C BC ####[facility] [address] [address]Dr. Donis Mancini IG # 0.06 10e3/ul Critically high 0.00-0.03 [facility] Comment on above: Performed By: #### C BC ####[facility] [address] [address]Dr. Donis Live IG % 0.5 % Normal 0.0-0.5 [facility] Comment on above: Performed By: #### C BC ####[facility] [address] [place], [place] [address]Dr. Donis Live LYMPH # 1.5 103/ul Normal 1.2-3.8 [facility] Comment on above: Performed By: #### C BC ####[facility] [address] [place], [place] [address]Dr. Donis Live Lymphocytes/100 WBC (Bld) 11.7 % Critically low 20.5-60.0 [facility] Comment on above: Performed By: #### C BC ####[facility] [address] [address]Dr. Donis Mancini MANUAL DIFF REQ NO Normal [facility] Comment on above: Performed By: #### C BC ####[facility] [address] [address]Dr. Donis Live MCH (RBC) [Entitic mass] 31.9 pg Normal 26.7-34.0 [facility] Comment on above: Performed By: #### C BC ####[facility] [address] [address]Dr. Donis Mancini MCHC (RBC) [Mass/Vol] 34.8 g/dL Normal 29.9-35.2 [facility] Comment on above: Performed By: #### C BC ####[facility] [address] [place] [id number]. Donis Mancnii MCV (RBC) [Entitic vol] 91.8 fL Normal 81.0-99.0 [facility] Comment on above: Performed By: #### C BC ####[facility] [address] [id number]. Donis Mancini MONO # 1.0 103/ul Critically high 0.3-0.8 The [facility] Comment on above: Performed By: #### C BC ####[facility] [address] [id number]. Laceyjavi Mancini Monocytes/100 WBC (Bld) 7.5 % Normal 1.7-12.0 [facility] Comment on above: Performed By: #### C BC ####[facility] [address] [place], [place] [address]Dr. Donis Mancini NEUT # 10.0 103/ul Critically high 1.4-6.5 [facility] Comment on above: Performed By: #### C BC ####[facility] [address] [place], [place] [address]Dr. Laceyjavi Mancini Neutrophils/100 WBC (Bld) 77.3 % Critically high 43.0-75.0 [facility] Comment on above: Performed By: #### C BC ####[facility] [address] [place], [place] [address]Dr. Laceyjavi Mancini Platelet mean volume (Bld) [Entitic vol] 11.6 fL Normal 9.5-13.5 [facility] Comment on above: Performed By: #### C BC ####[facility] [address] [place], [place] [address]Dr. Donis Mancini PLT 184 103/ul Normal 150-450 [facility] Comment on above: Performed By: #### C BC ####[facility] [address] [place] [id number]. Donis Mancini RBC 4.51 106/ul Normal 4.20-5.40 [facility] Comment on above: Performed By: #### C BC ####[facility] [address] [place], [place] [address]YnDr. Donis Mancini WBC 12.9 103/ul Critically high 4.0-11.0 [facility] Comment on above: Performed By: #### C BC ####[facility] [address] [place], [place] [address]Dr. Donis Mancini LDHon 08-09-2022 LDH 167 U/L Normal 81-234 [facility] Comment on above: Performed By: #### C T/NGNA #### [facility] Laboratory [address] [address] [address] Donis Mancini PROF 14(COMP METB)on 022 Albumin [Mass/Vol] 2.7 g/dL Critically low 3.4-5.0 [facility] Comment on above: Performed By: #### C T/NGNA #### [facility] Laboratory [address] [address] [address] Donis Mancini Albumin/Globulin [Mass ratio] 0.6 {ratio} Normal [facility] Comment on above: Performed By: #### C T/NGNA #### [facility] Laboratory [address] [place] [address] Dr. Donis Mancini ALP [Catalytic activity/Vol] 176 U/L Critically high 46-116 [facility] Comment on above: Performed By: #### C T/NGNA #### [facility] Laboratory [address] [address] [address] Donis Mancini ALT [Catalytic activity/Vol] 20 U/L Normal 14-59 [facility] Comment on above: Performed By: #### C T/NGNA #### [facility] Laboratory [address] [address] [address] Donis Mancini Anion gap [Moles/Vol] 12.9 mmol/L Normal [facility] Comment on above: Performed By: #### C T/NGNA #### [facility] Laboratory [address] [place] [address] Dr. Donis Mancini AST [Catalytic activity/Vol] 20 U/L Normal 15-37 [facility] Comment on above: Performed By: #### C T/NGNA #### [facility] Laboratory [address] [place] [address] Dr. Donis Mancini Bilirubin [Mass/Vol] 0.1 mg/dL Critically low 0.2-1.0 [facility] Comment on above: Performed By: #### C T/NGNA #### [facility] Laboratory [address] [place] [address] Dr. Donis Mancini Calcium [Mass/Vol] 9.1 mg/dL Normal 8.5-10.1 [facility] Comment on above: Performed By: #### C T/NGNA #### [facility] Laboratory [address] [place] [address] Dr. Donis Mancini Chloride [Moles/Vol] 104 mmol/L Normal 98-107 [facility] Comment on above: Performed By: #### C T/NGNA #### [facility] Laboratory [address] [place] [address] Dr. Donis Mancini CO2 [Moles/Vol] 22.9 mmol/L Normal 21.0-32.0 [facility] Comment on above: Performed By: #### C T/NGNA #### [facility] Laboratory [address] [place] [address] Dr. Donis Mancini Creatinine [Mass/Vol] 0.43 mg/dL Critically low 0.55-1.02 [facility] Comment on above: Performed By: #### C T/NGNA #### [facility] Laboratory [address] [place] [address] Dr. Donis Mancini EGFR-AF CHILEAN >60 Normal >=60 [facility] Comment on above: Performed By: #### C T/NGNA #### [facility] Laboratory [address] [place] [address] Dr. Donis Mancini EGFR-NON AF CHILEAN >60 Normal >=60 [facility] Comment on above: Performed By: #### C T/NGNA #### [facility] Laboratory [address] [place] [address] Dr. Donis Mancini Globulin (S) [Mass/Vol] 4.2 g/dL Normal [facility] Comment on above: Performed By: #### C T/NGNA #### [facility] Laboratory [address] [place] [address] Dr. Donis Mancini Glucose [Mass/Vol] 95 mg/dL Normal 74-106 [facility] Comment on above: Performed By: #### C T/NGNA #### [facility] Laboratory [address] [place] [address] Dr. Donis Mancini Potassium [Moles/Vol] 3.8 mmol/L Normal 3.5-5.1 [facility] Comment on above: Performed By: #### C T/NGNA #### [facility] Laboratory [address] [place] [address] Dr. Donis Mancini Protein [Mass/Vol] 6.9 g/dL Normal 6.4-8.2 [facility] Comment on above: Performed By: #### C T/NGNA #### [facility] Laboratory [address] [place] [address] Dr. Donis Mancini Sodium [Moles/Vol] 136 mmol/L Normal 136-145 [facility] Comment on above: Performed By: #### C T/NGNA #### [facility] Laboratory [address] [place] [address] Dr. Donis Mancini Urea nitrogen [Mass/Vol] 10.0 mg/dL Normal 7.0-18.0 [facility] Comment on above: Performed By: #### C T/NGNA #### [facility] Laboratory [address] [place] [address] Dr. Donis Mancini Urea nitrogen/Creatinine [Mass ratio] 23.3 mg/mg Normal [facility] Comment on above: Performed By: #### C T/NGNA #### [facility] Laboratory [address] [place] [address] Dr. Donis Mancini URIC ACID SERUMon 08-09-2022 Urate [Mass/Vol] 3.6 mg/dL Normal 2.6-6.0 [facility] Comment on above: Performed By: #### C T/NGNA #### [facility] Laboratory [address] [address] [address] Donis Mancini CBC AUTO DIFFon 08-07-2022 BASO # 0.0 103/ul Normal 0.0-0.1 [facility] Comment on above: Performed By: #### U AMIC #### [facility] Laboratory [address] [address] [address] Donis Mancini Basophils/100 WBC (Bld) 0.2 % Normal 0.2-2.0 [facility] Comment on above: Performed By: #### U AMIC #### [facility] Laboratory [address] [place] [address] Dr. Donis Mancini EO # 0.2 103/ul Normal 0.0-0.7 [facility] Comment on above: Performed By: #### U AMIC #### [facility] Laboratory [address] [place] [address] Dr. Donis Mancini Eosinophils/100 WBC (Bld) 1.8 % Normal 0.9-7.0 [facility] Comment on above: Performed By: #### U AMIC #### [facility] Laboratory [address] [place] [address] Dr. Donis Mancini Erythrocyte distribution width (RBC) [Ratio] 12.3 % Normal 11.0-15.0 [facility] Comment on above: Performed By: #### U AMIC #### [facility] Laboratory [address] [place] [address] Dr. Donis Mancini Hematocrit (Bld) [Volume fraction] 45.7 % Normal 36.0-48.0 [facility] Comment on above: Performed By: #### U AMIC #### [facility] Laboratory [address] [place] [address] Dr. Donis Mancini Hemoglobin (Bld) [Mass/Vol] 16.0 g/dL Normal 12.0-16.0 [facility] Comment on above: Performed By: #### U AMIC #### [facility] Laboratory [address] [place] [address] Dr. Donis Mancini IG # 0.07 10e3/ul Critically high 0.00-0.03 [facility] Comment on above: Performed By: #### U AMIC #### [facility] Laboratory [address] [address] [address] Donis Mancini IG % 0.5 % Normal 0.0-0.5 [facility] Comment on above: Performed By: #### U AMIC #### [facility] Laboratory [address] [address] [address] Donis Mancini LYMPH # 1.5 103/ul Normal 1.2-3.8 [facility] Comment on above: Performed By: #### U AMIC #### [facility] Laboratory [address] [address] [address] Donis Mancini Lymphocytes/100 WBC (Bld) 11.2 % Critically low 20.5-60.0 [facility] Comment on above: Performed By: #### U AMIC #### [facility] Laboratory [address] [place] [address] Dr. Donis Mancini MANUAL DIFF REQ NO Normal [facility] Comment on above: Performed By: #### U AMIC #### [facility] Laboratory [address] [address] [address] Donis Mancini MCH (RBC) [Entitic mass] 32.0 pg Normal 26.7-34.0 [facility] Comment on above: Performed By: #### U AMIC #### [facility] Laboratory [address] [address] [address] Donis Mancini MCHC (RBC) [Mass/Vol] 35.0 g/dL Normal 29.9-35.2 [facility] Comment on above: Performed By: #### U AMIC #### [facility] Laboratory [address] [address] [address] Donis Mancini MCV (RBC) [Entitic vol] 91.4 fL Normal 81.0-99.0 [facility] Comment on above: Performed By: #### U AMIC #### [facility] Laboratory [address] [address] [address] Donis Mancini MONO # 0.9 103/ul Critically high 0.3-0.8 [facility] Comment on above: Performed By: #### U AMIC #### [facility] Laboratory [address] [address] [address] Donis Mancini Monocytes/100 WBC (Bld) 6.3 % Normal 1.7-12.0 [facility] Comment on above: Performed By: #### U AMIC #### [facility] Laboratory [address] [address] [address] Donis Mancini NEUT # 10.9 103/ul Critically high 1.4-6.5 [facility] Comment on above: Performed By: #### U AMIC #### [facility] Laboratory [address] [address] [address] Donis Mancini Neutrophils/100 WBC (Bld) 80.0 % Critically high 43.0-75.0 [facility] Comment on above: Performed By: #### U AMIC #### [facility] Laboratory [address] [place] [address] Dr. Donis Mancini Platelet mean volume (Bld) [Entitic vol] 11.5 fL Normal 9.5-13.5 [facility] Comment on above: Performed By: #### U AMIC #### [facility] Laboratory [address] [address] [address] Donis Mancini PLT 182 103/ul Normal 150-450 [facility] Comment on above: Performed By: #### U AMIC #### [facility] Laboratory [address] [place] [address] Dr. Donis Mancini RBC 5.00 106/ul Normal 4.20-5.40 [facility] Comment on above: Performed By: #### U AMIC #### [facility] Laboratory [address] [address] [address] Donis Mancini WBC 13.6 103/ul Critically high 4.0-11.0 [facility] Comment on above: Performed By: #### U AMIC #### [facility] Laboratory [address] [place] [address] Dr. Donis Mancini LDHon 08-07-2022 LDH 171 U/L Normal 81-234 [facility] Comment on above: Performed By: #### C MP, URIC, LDH ####[facility] [address] [address]Dr. Donis Mancini PROF 14(COMP METB)on 022 Albumin [Mass/Vol] 2.9 g/dL Critically low 3.4-5.0 [facility] Comment on above: Performed By: #### C MP, URIC, LDH ####[facility] [address] [address]Dr. Donis Mancini Albumin/Globulin [Mass ratio] 0.6 {ratio} Normal [facility] Comment on above: Performed By: #### C MP, URIC, LDH ####[facility] [address] [place] [address]Dr. Donis Mancini ALP [Catalytic activity/Vol] 192 U/L Critically high 46-116 [facility] Comment on above: Performed By: #### C MP, URIC, LDH ####[facility] [address] [place], [place] [address]Dr. Donis Mancini ALT [Catalytic activity/Vol] 23 U/L Normal 14-59 [facility] Comment on above: Performed By: #### C MP, URIC, LDH ####[facility] [address] [place], [place] [address]Dr. Donis Mancini Anion gap [Moles/Vol] 14.4 mmol/L Normal [facility] Comment on above: Performed By: #### C MP, URIC, LDH ####[facility] [address] [place], [place] [address]Dr. Donis Mancini AST [Catalytic activity/Vol] 23 U/L Normal 15-37 [facility] Comment on above: Performed By: #### C MP, URIC, LDH ####[facility] [address] [place], [place] [address]Dr. Donis Mancini Bilirubin [Mass/Vol] 0.2 mg/dL Normal 0.2-1.0 [facility] Comment on above: Performed By: #### C MP, URIC, LDH ####[facility] [address] [place], [place] [address]Dr. Donis Mancini Calcium [Mass/Vol] 9.4 mg/dL Normal 8.5-10.1 [facility] Comment on above: Performed By: #### C MP, URIC, LDH ####[facility] [address] [address]Dr. Donis Mancini Chloride [Moles/Vol] 104 mmol/L Normal 98-107 [facility] Comment on above: Performed By: #### C MP, URIC, LDH ####[facility] [address] [place] [address]Dr. Donis Mancini CO2 [Moles/Vol] 21.7 mmol/L Normal 21.0-32.0 [facility] Comment on above: Performed By: #### C MP, URIC, LDH ####[facility] [address] [place], [place] [address]Dr. Donis Mancini Creatinine [Mass/Vol] 0.46 mg/dL Critically low 0.55-1.02 [facility] Comment on above: Performed By: #### C MP, URIC, LDH ####[facility] [address] [place], [place] [address]Dr. Donis Mancini EGFR-AF CHILEAN >60 Normal >=60 [facility] Comment on above: Performed By: #### C MP, URIC, LDH ####[facility] [address] [place], [place] [address]Dr. Donis Mancini EGFR-NON AF CHILEAN >60 Normal >=60 [facility] Comment on above: Performed By: #### C MP, URIC, LDH ####[facility] [address] [place] [address]Dr. Donis Mancini Globulin (S) [Mass/Vol] 4.6 g/dL Normal [facility] Comment on above: Performed By: #### C MP, URIC, LDH ####[facility] [address] [address]Dr. Donis Mancini Glucose [Mass/Vol] 89 mg/dL Normal 74-106 [facility] Comment on above: Performed By: #### C MP, URIC, LDH ####[facility] [address] [place], [place] [address]Dr. Donis Mancini Potassium [Moles/Vol] 4.1 mmol/L Normal 3.5-5.1 [facility] Comment on above: Performed By: #### C MP, URIC, LDH ####[facility] [address] [place] [address]Dr. Donis Mancini Protein [Mass/Vol] 7.5 g/dL Normal 6.4-8.2 [facility] Comment on above: Performed By: #### C MP, URIC, LDH ####[facility] [address] [place] [address]Dr. Donis Mancini Sodium [Moles/Vol] 136 mmol/L Normal 136-145 [facility] Comment on above: Performed By: #### C MP, URIC, LDH ####[facility] [address] [place] [address]Dr. Donis Mancini Urea nitrogen [Mass/Vol] 8.0 mg/dL Normal 7.0-18.0 [facility] Comment on above: Performed By: #### C MP, URIC, LDH ####[facility] [address] [place] [address]Dr. Donis Mancini Urea nitrogen/Creatinine [Mass ratio] 17.4 mg/mg Normal [facility] Comment on above: Performed By: #### C MP, URIC, LDH ####[facility] [address] [place] [address]DrGene Mancini PROTIMEon 08-07-2022 INR Coag (PPP) [Relative time] {INR} Normal [facility] Comment on above: Performed By: #### U AMIC #### [facility] Laboratory [address] [address] [address] Donis Mancini INR GUIDELINES SEE BELOW Normal [facility] Comment on above: Result Comment: NICCI RED INR: 2.0 - 3.0 CONDITIONS NOT LISTED BELOW 2.5 - 3.5 FOR PROSTHETIC HEART VALVE REPLACEMENT 2.5 - 3.5 RECURRENT THROMBOSIS Performed By: #### U AMIC #### [facility] Laboratory [address] [address] [address] Donis Mancini PT Coag (PPP) [Time] 9.8 s Normal 9.0-11.6 [facility] Comment on above: Performed By: #### U AMIC #### [facility] Laboratory [address] [place] [address] Dr. Donis Mancini PTTon 08-07-2022 aPTT Coag (Bld) [Time] 28.5 s Normal 22.3-36.2 [facility] Comment on above: Performed By: #### U AMIC #### [facility] Laboratory [address] [place] [address] Dr. Donis Mancini UA (CLEAN/CATCH) BEAM SAW OPERATOR/MICRO I F IND.on 08-07-2022 Bilirubin Ql (U) Negative Normal NEGATIVE [facility] Comment on above: Performed By: #### U AMIC #### [facility] Laboratory [address] [place] [address] Dr. Donis Mancini Clarity (U) CLEAR Normal CLEAR [facility] Comment on above: Performed By: #### U AMIC #### [facility] Laboratory [address] [place] [address] Dr. Donis Mancini Color (U) LT. YELLOW Normal YELLOW [facility] Comment on above: Performed By: #### U AMIC #### [facility] Laboratory [address] [place] [address] Dr. Donis Mancini Glucose Ql (U) Negative Normal NEGATIVE [facility] Comment on above: Performed By: #### U AMIC #### [facility] Laboratory [address] [place] [address] Dr. Donis Mancini Hemoglobin Ql (U) Negative Normal NEGATIVE [facility] Comment on above: Performed By: #### U AMIC #### [facility] Laboratory [address] [place] [address] Dr. Donis Mancini Ketones Ql (U) Negative Normal NEGATIVE [facility] Comment on above: Performed By: #### U AMIC #### [facility] Laboratory [address] [place] [address] Dr. Donis Mancini LEUKOCYTES Negative Normal NEGATIVE [facility] Comment on above: Performed By: #### U AMIC #### [facility] Laboratory [address] [address] [address] Donis Mancini Nitrite Ql (U) Negative Normal NEGATIVE [facility] Comment on above: Performed By: #### U AMIC #### [facility] Laboratory [address] [address] [address] Donis Mancini pH (U) 7.0 [pH] Normal 5-9 The [facility] Comment on above: Performed By: #### U AMIC #### [facility] Laboratory [address] [address] [address] Donis Mancini SPEC GRAVITY <=1.005 Abnormal 1.005-<=1.02 5 [facility] Comment on above: Performed By: #### U AMIC #### [facility] Laboratory [address] [place] [address] Dr. Donis Mancini UA PROTEIN Negative Normal NEGATIVE/ TRACE The [facility] Comment on above: Performed By: #### U AMIC #### [facility] Laboratory [address] [address] [address] Donis Mancini UR MICRO IND NOT INDICATED Normal The [facility] Comment on above: Performed By: #### U AMIC #### [facility] [address] [address] [address] Donis Mancini Urobilinogen Qn (U) 0.2 {Sarah'U}/dL Normal 0.2 - 1. 0 The [facility] Comment on above: Performed By: #### U AMIC #### [facility] Laboratory [address] [address] [address] Donis Mancini URIC ACID SERUMon 08-07-2022 Urate [Mass/Vol] 3.8 mg/dL Normal 2.6-6.0 The [facility] Comment on above: Performed By: #### C MP, URIC, LDH ####[facility] [address] [address]Dr. Donis Mancini URINE T PROTEIN CREAT RATIOo n 08-07-2022 UR TOTAL PROTEIN <6.0 Normal <=12.0 [facility] Comment on above: Performed By: #### C T/NGNA #### [facility] [address] [address] [address] Donis Mancini URINE CREAT 13.45 mg/dL Critically low 20.00-300.00 [facility] Comment on above: Performed By: #### C T/NGNA #### [facility] [address] [address] [address] Donis Mancini US PREG BIOPHY W [...] COCO STERN Date: 2022-08-01 08:31 Normal The [facility] CHLAMYDIA/GONOCOCCUS INESSA (SW AB/URINE/PAPon 07-31-2022 Chlamydia trachomatis, INESSA Negative Normal Negative [facility] Comment on above: Performed By: #### C T/NGNA #### [facility] [address] [place] [address] Dr. Donis Mancini Neisseria gonorrhoeae, INESSA Negative Normal Negative [facility] Comment on above: Performed By: #### C T/NGNA #### [facility] [address] [address] [address] Donis Mancini VAGINITIS/VAGINOSIS DNA PROB Domenic 07-31-2022 Simeon species Negative Normal Negative [facility] Comment on above: Performed By: #### V AGINT ####[facility] [address] [place], [place] [address]Dr. Donis Mancini Gardnerella vaginalis Negative Normal Negative [facility] Comment on above: Performed By: #### V AGINT ####[facility] [address] [address]Dr. Donis Mancini Trichomonas vaginalis Negative Normal Negative [facility] Comment on above: Performed By: #### V AGINT ####[facility] [address] [place], [place] [address]XmDr. Donis Mancini GROUP B STREP CULTUREon S. agalactiae Ag Ql (Unsp spec) Culture Observations: NEGATIVE FOR GROUP B STREPTOCOCCUS. Normal The [facility] Comment on above: Performed By: #### G BSCX #### [facility] [address] [place], [place] [address] Dr. Donis Mancini US PREG BIOPHY W [...] COCO STERN Date: 2022-07-25 09:41 Normal The [facility] US PREG GROWTHon 07-11-2022 US PREG GROWTH [...] with growth detailed above. Electronically authenticated by: ESTEFANYMICHELLE BENNETT Date: 2022-07-11 19:28 Normal The [facility] Covid-19 PCR ([facility])on 06-26 SARS-CoV-2 (COVID-19) RNA INESSA+probe Ql (Unsp spec) Not detected Normal NOT DETECTED The [facility] Comment on above: Result Comment: When diagnostic [...] for this test is supported by the [employer] Operator of Health and Human Service's declaration [...] used). Performed By: #### C T/NGNA #### [facility] Laboratory [address] [place] [address] Dr. Donis Mancini GTT 3 HR PREGon 06-03-2022 Glucose [Mass/Vol] 94 mg/dL Normal 74-106 [facility] Comment on above: Performed By: #### U AMIC #### [facility] [address] [place] [address] Dr. Donis Mancini Glucose [Mass/Vol] 147 mg/dL Normal [facility] Comment on above: Performed By: #### U AMIC #### [facility] [address] [place] [address] Dr. Donis Mancini Glucose [Mass/Vol] 159 mg/dL Normal [facility] Comment on above: Performed By: #### U AMIC #### [facility] [address] [place] [address] Dr. Donis Mancini Glucose [Mass/Vol] 151 mg/dL Normal [facility] Comment on above: Performed By: #### U AMIC #### [facility] [address] [place] [address] Dr. Donis Mancini GLUCOSE - 1HRon 05-21-2022 Glucose [Mass/Vol] 141 mg/dL Critically high 74-106 [facility] Comment on above: Performed By: #### U AMIC #### [facility] Laboratory [address] [place] [address] Dr. Donis Mancini HEMOGRAM AND PLATELon 2021 Hematocrit (Bld) [Volume fraction] 39.1 % Normal 36.0-48.0 [facility] Comment on above: Performed By: #### U AMIC #### [facility] [address] [place] [address] Dr. Donis Mancini Hemoglobin (Bld) [Mass/Vol] 13.1 g/dL Normal 12.0-16.0 [facility] Comment on above: Performed By: #### U AMIC #### [facility] [address] [place] [address] Dr. Donis Mancini MCH (RBC) [Entitic mass] 32.3 pg Normal 26.7-34.0 [facility] Comment on above: Performed By: #### U AMIC #### [facility] [address] [place] [address] Dr. Donis Mancini MCHC (RBC) [Mass/Vol] 33.5 g/dL Normal 29.9-35.2 [facility] Comment on above: Performed By: #### U AMIC #### [facility] [address] [place] [address] Dr. Donis Mancini MCV (RBC) [Entitic vol] 96.5 fL Normal 81.0-99.0 [facility] Comment on above: Performed By: #### U AMIC #### [facility] [address] [place] [address] Dr. Donis Mancini PLT 220 103/ul Normal 150-450 The [facility] Comment on above: Performed By: #### U AMIC #### [facility] [address] [address] [address] Donis Mancini RBC 4.05 106/ul Critically low 4.20-5.40 [facility] Comment on above: Performed By: #### U AMIC #### [facility] Laboratory [id number] Donis Mancini WBC 12.8 103/ul Critically high 4.0-11.0 [facility] Comment on above: Performed By: #### U AMIC #### [facility] [address] [address] [address] Donis Mancini US PREG BIOPHYSICAL NO [...] ESTEFANY BENNETT Date: 2022-05-11 06:25 Normal The [facility] CULTURE URINEon 05-10-2022 CULTURE URINE Culture Observations: MODERATE GROWTH OF MIXED GENITAL RAMBO. NO POTENTIAL PATHOGENS SEEN. Normal The [facility] Comment on above: Performed By: #### U RCX #### [facility] Laboratory [address] [address] [address] Donis Mancini UA RANDOM W/MICROSCOPICon BACTERIA LARGE Abnormal NONE SEEN The [facility] Comment on above: Performed By: #### U AMIC ####[facility] [address] [address]Dr. Donis Mancini Bilirubin Ql (U) Negative Normal NEGATIVE [facility] Comment on above: Performed By: #### U AMIC ####[facility] [address] [id number]. Donis Mancini CAST NONE SEEN Normal NONE SEEN The [facility] Comment on above: Performed By: #### U AMIC ####[facility] [address] [address]Dr. Donis Mancini Clarity (U) CLEAR Normal CLEAR The [facility] Comment on above: Performed By: #### U AMIC ####[facility] [address] [address]Dr. Donis Mancini Color (U) YELLOW Normal YELLOW The [facility] Comment on above: Performed By: #### U AMIC ####[facility] [address] [address]Dr. Donis Mancini Crystals LM Nom (Urine sed) NONE SEEN Normal NONE SEEN [facility] Comment on above: Performed By: #### U AMIC ####[facility] [address] [place], [place] [address]Dr. Donis Mancini Epithelial cells LM Ql (Urine sed) MODERATE Abnormal NONE SEEN /RARE The [facility] Comment on above: Performed By: #### U AMIC ####[facility] [address] [place], [place] [address]Dr. Donis Mancini Glucose Ql (U) 250 mg/dl Abnormal NEGATIVE [facility] Comment on above: Performed By: #### U AMIC ####[facility] [address] [place], [place] [address]Dr. Donis Mancini Hemoglobin Ql (U) TRACE-INTACT Abnormal NEGATIVE [facility] Comment on above: Performed By: #### U AMIC ####[facility] [address] [place], [place] [address]Dr. Donis Mancini Ketones Ql (U) Negative Normal NEGATIVE [facility] Comment on above: Performed By: #### U AMIC ####[facility] [address] [address]Dr. Donis Mancini LEUKOCYTES LARGE Abnormal NEGATIVE The [facility] Comment on above: Performed By: #### U AMIC ####[facility] [address] [address]Dr. Donis Mancini MUCOUS NONE SEEN Normal NONE SEEN The [facility] Comment on above: Performed By: #### U AMIC ####[facility] [address] [place], [place] [address]Dr. Donis Mancini Nitrite Ql (U) Negative Normal NEGATIVE [facility] Comment on above: Performed By: #### U AMIC ####[facility] [address] [address]Dr. Donis Mancini pH (U) 6.0 [pH] Normal 5-9 [facility] Comment on above: Performed By: #### U AMIC ####[facility] [address] [address]Dr. Donis Mancini RBC 2-5 Abnormal 0-2 [facility] Comment on above: Performed By: #### U AMIC ####[facility] [address] [address]Dr. Donis Mancini SPEC GRAVITY <=1.005 Abnormal 1.005-<=1.02 5 [facility] Comment on above: Performed By: #### U AMIC ####[facility] [address] [address]Dr. Donis Mancini UA PROTEIN Negative Normal NEGATIVE/ TRACE The [facility] Comment on above: Performed By: #### U AMIC ####[facility] [address] [address]Dr. Donis Mancini Urobilinogen Qn (U) 0.2 {Sarah'U}/dL Normal 0.2 - 1. 0 [facility] Comment on above: Performed By: #### U AMIC ####[facility] [address] [address]Dr. Donis Mancini WBC 10-20 Abnormal NONE SEEN The [facility] Comment on above: Performed By: #### U AMIC ####[facility] [address] [id number]. Donis Mancini CULTURE URINEon 04-27-2022 CULTURE URINE Culture Observations: LIGHT GROWTH OF MIXED GENITAL RAMBO. NO POTENTIAL PATHOGENS SEEN. Normal The [facility] Comment on above: Performed By: #### U RCX ####[facility] [address] [address]DrGene Mancini UA (CLEAN/CATCH) BEAM SAW OPERATOR/MICRO I F IND.on 04-27-2022 Bilirubin Ql (U) Negative Normal NEGATIVE [facility] Comment on above: Performed By: #### U ACSIND, UMICRO ####[facility] [address] [place], [place] [address]Dr. Donis Mancini Clarity (U) CLEAR Normal CLEAR The [facility] Comment on above: Performed By: #### U ACSIND, UMICRO ####[facility] [address] [address]Dr. Donis Mancini Color (U) LT. YELLOW Normal YELLOW [facility] Comment on above: Performed By: #### U ACSIND, ICRO ####[facility] [address] [address]Dr. Donis Mancini Glucose Ql (U) Negative Normal NEGATIVE [facility] Comment on above: Performed By: #### U ACSIND, UMICRO ####[facility] [address] [place], [place] [address]Dr. Donis Mancini Hemoglobin Ql (U) Negative Normal NEGATIVE [facility] Comment on above: Performed By: #### U ACSWENDY, ICRO ####[facility] [address] [place], [place] [address]Dr. Donis Mancini Ketones Ql (U) Negative Normal NEGATIVE [facility] Comment on above: Performed By: #### U ACSWENDY, ICRO ####[facility] [address] [place], [place] [address]Dr. Donis Mancini LEUKOCYTES SMALL Abnormal NEGATIVE [facility] Comment on above: Performed By: #### U ACSIND, UMICRO ####[facility] [address] [place], [place] [address]Dr. Donis Mancini Nitrite Ql (U) Negative Normal NEGATIVE [facility] Comment on above: Performed By: #### U ACSIND, UMICRO ####[facility] [address] [place], [place] [address]Dr. Donis Mancini pH (U) 7.0 [pH] Normal 5-9 The [facility] Comment on above: Performed By: #### U ACSIND, UMICRO ####[facility] [address] [address]Dr. Donis Live SPEC GRAVITY 1.015 Normal 1.005-<=1.02 5 The [facility] Comment on above: Performed By: #### U NELSON UMICRO ####[facility] [address] [address]Dr. Donis Mancini UA PROTEIN Negative Normal NEGATIVE/ TRACE The [facility] Comment on above: Performed By: #### U NELSON UMICRO ####[facility] [address] [address]Dr. Donis Mancini UR MICRO IND INDICATED Normal The [facility] Comment on above: Performed By: #### U NELSON UMICRO ####[facility] [address] [address]Dr. Donis Mancini Urobilinogen Qn (U) 0.2 {Sarah'U}/dL Normal 0.2 - 1. 0 [facility] Comment on above: Performed By: #### U NELSON UMICRO ####[facility] [address] [place], [place] [address]Dr. Donis Mancini URINE MICROSCOPIC ONLYon BACTERIA MODERATE Abnormal NONE SEEN The [facility] Comment on above: Performed By: #### U NELSON UMICRO ####[facility] [address] [place], [place] [address]Dr. Donis Mancini Bacteria identified Cx Nom (U) INDICATED Normal The [facility] Comment on above: Performed By: #### U NELSON UMICRO ####[facility] [address] [address]Dr. Donis Mancini CAST NONE SEEN Normal NONE SEEN The [facility] Comment on above: Performed By: #### U NELSON UMICRO ####[facility] [address] [place], [place] [address]Dr. Donis Mancini Crystals LM Nom (Urine sed) NONE SEEN Normal NONE SEEN The [facility] Comment on above: Performed By: #### U NELSON UMICRO ####[facility] [address] [id number]. Donis Mancini Epithelial cells LM Ql (Urine sed) MODERATE Abnormal NONE SEEN /RARE The [facility] Comment on above: Performed By: #### U NEFTALY DAMONICRO ####[facility] [address] [id number]. Laceylan Mancini MUCOUS NONE SEEN Normal NONE SEEN The [facility] Comment on above: Performed By: #### U NELSON UMICRO ####[facility] [address] [place], [place] [address]Es. Yilan Mancini RBC NONE SEEN Abnormal 0-2 [facility] Comment on above: Performed By: #### U LORETTA DAMONRO ####[facility] [address] [id number]. Donis Mancini WBC 2-5 Abnormal NONE SEEN The [facility] Comment on above: Performed By: #### U LORETTA DAMONRO ####[facility] [address] [id number]. Yilan Mancini US KIDNEYSon 04-27-2022 US KIDNEYS EXAM: [...] ANDREAS AN Date: 2022-04-27 17:48 Normal The [facility] CULTURE URINEon 04-16-2022 CULTURE URINE Isolate 1 [...] Trimethoprim/Sulfame thoxazole <=20 S F Normal The [facility] Comment on above: Performed By: #### U RCX #### [facility] Laboratory [address] [place] [address] Dr. Donis Mancini US PREG ANATOMY SINGLEon [...] growth detailed above. Electronically authenticated by: ESTEFANY DONALD Date: 2022-04-12 22:22 Normal The [facility] UA RANDOM W/MICROSCOPICon BACTERIA SMALL Abnormal NONE SEEN The [facility] Comment on above: Performed By: #### U AMIC #### [facility] Laboratory [address] [place] [address] Dr. Donis Mancini Bilirubin Ql (U) Negative Normal NEGATIVE [facility] Comment on above: Performed By: #### U AMIC #### [facility] [address] [place] [address] Dr. Donis Mancini CAST NONE SEEN Normal NONE SEEN The [facility] Comment on above: Performed By: #### U AMIC #### [facility] Laboratory [address] [place] [address] Dr. Donis Mancini Clarity (U) CLEAR Normal CLEAR The [facility] Comment on above: Performed By: #### U AMIC #### [facility] [address] [place] [address] Dr. Donis Mancini Color (U) LT. YELLOW Normal YELLOW The [facility] Comment on above: Performed By: #### U AMIC #### [facility] Laboratory [address] [place] [address] Dr. Donis Mancini Crystals LM Nom (Urine sed) NONE SEEN Normal NONE SEEN The [facility] Comment on above: Performed By: #### U AMIC #### [facility] Laboratory [address] [place] [address] Dr. Donis Mancini Epithelial cells LM Ql (Urine sed) FEW Abnormal NONE SEEN /RARE The [facility] Comment on above: Performed By: #### U AMIC #### [facility] Laboratory [address] [place] [address] Dr. Donis Mancini Glucose Ql (U) Negative Normal NEGATIVE [facility] Comment on above: Performed By: #### U AMIC #### [facility] Laboratory [address] [place] [address] Dr. Donis Mancini Hemoglobin Ql (U) Negative Normal NEGATIVE [facility] Comment on above: Performed By: #### U AMIC #### [facility] [address] [address] [address] Donis Mancini Ketones Ql (U) Negative Normal NEGATIVE [facility] Comment on above: Performed By: #### U AMIC #### [facility] [address] [address] [address] Donis Mancini LEUKOCYTES LARGE Abnormal NEGATIVE The [facility] Comment on above: Performed By: #### U AMIC #### [facility] [address] [address] [address] Donis Mancini MUCOUS NONE SEEN Normal NONE SEEN The [facility] Comment on above: Performed By: #### U AMIC #### [facility] [address] [address] [address] Donis Mancini Nitrite Ql (U) Negative Normal NEGATIVE [facility] Comment on above: Performed By: #### U AMIC #### [facility] [address] [address] [address] Donis Mancini pH (U) 5.5 [pH] Normal 5-9 [facility] Comment on above: Performed By: #### U AMIC #### [facility] [address] [place] [address] Dr. Donis Mancini RBC 0-2 Normal 0-2 [facility] Comment on above: Performed By: #### U AMIC #### [facility] [address] [place] [address] Dr. Donis Mancini SPEC GRAVITY <=1.005 Abnormal 1.005-<=1.[address] [place] [address] Comment on above: Performed By: #### U AMIC #### [facility] [address] [address] [address] Donis Mancini UA PROTEIN Negative Normal NEGATIVE/ TRACE [facility] Comment on above: Performed By: #### U AMIC #### [facility] [address] [place] [address] Dr. Donis Mancini Urobilinogen Qn (U) 0.2 {Sarah'U}/dL Normal 0.2 - 1. 0 [facility] Comment on above: Performed By: #### U AMIC #### [facility] [address] [address] [address] Donis Mancini WBC 5-10 Abnormal NONE SEEN The [facility] Comment on above: Performed By: #### U AMIC #### [facility] [address] [address] [address] Donis Mancini HEP B SURFACE ANTIGEN SCREEN on 01-23-2022 HBsAg Screen Negative Normal Negative [facility] Comment on above: Performed By: #### U AMIC #### [facility] [address] [address] [address] Donis Mancini HEPATITIS C VIRUS AB W/ REFL EX QUANTon 01-23-2022 HCV AB 0.1 s/co ratio Normal 0.0-0.9 [facility] Comment on above: Performed By: #### H CVPCRR ####[facility] [id number] [address]DrGene Mancini Interpretation: Comment Normal [facility] Comment on above: Result Comment: Nega tive Not infected with HCV, unless recent infection is suspected or other evidence exists to indicate HCV infection. Performed By: #### H CVPCRR ####[facility] [id number] [address]Dr. Donis Mancini HIV 1 AND 2 WITH REFLEXon HIV Screen 4th Generation wRfx Non-Reactive Normal Non Reactive The [facility] Comment on above: Result Comment: HIV Negative HIV-1/HIV-2 antibodies and HIV-1 p24 antigen were NOT detected. There is no laboratory evidence of HIV infection. Performed By: #### H IV12 ####[facility] [id number] [address]Dr. Donis Mancini RPR QUANTon 01-23-2022 Rapid Plasma Reagin, Quant Non-Reactive Normal NonRea<1:1 [facility] Comment on above: Result Comment: Plea se Note: This test does not meet current guidelines for screening and diagnosis of syphilis. This test is intended for following treatment response in patients being treated for syphilis infection. To screen for syphilis infection, a reflex cascade that includes both RPR and a treponema-specific assay should be utilized, such as Treponema pallidum (Syphilis) Screening [place] (919096) or Rapid Plasma Reagin (RPR) Test With Reflex to Quantitative RPR and Confirmatory Treponema pallidum Antibodies (659119). Performed By: #### R PRQ ####[facility] [id number] [address]Dr. Donis Mancini RUBELLA AB IGGon 01-23-2022 Rubella Antibodies, IgG 1.60 index Normal Immune >0.99 [facility] Comment on above: Result Comment: Non- immune <0.90 Equivocal 0.90 - 0.99 Immune >0.99 Performed By: #### U AMIC #### [facility] [address] [place] [address] Dr. Donis Mancini CBC AUTO DIFFon 01-22-2022 BASO # 0.1 103/ul Normal 0.0-0.1 [facility] Comment on above: Performed By: #### U AMIC #### [facility] [address] [place] [address] Dr. Donis Mancini Basophils/100 WBC (Bld) 0.5 % Normal 0.2-2.0 [facility] Comment on above: Performed By: #### U AMIC #### [facility] [address] [place] [address] Dr. Donis Mancini EO # 0.6 103/ul Normal 0.0-0.7 [facility] Comment on above: Performed By: #### U AMIC #### [facility] [address] [place] [address] Dr. Donis Mancini Eosinophils/100 WBC (Bld) 5.1 % Normal 0.9-7.0 [facility] Comment on above: Performed By: #### U AMIC #### [facility] [address] [place] [address] Dr. Donis Mancini Erythrocyte distribution width (RBC) [Ratio] 12.0 % Normal 11.0-15.0 [facility] Comment on above: Performed By: #### U AMIC #### [facility] [address] [place] [address] Dr. Donis Mancini Hematocrit (Bld) [Volume fraction] 45.8 % Normal 36.0-48.0 [facility] Comment on above: Performed By: #### U AMIC #### [facility] [address] [address] [address] Donis Mancini Hemoglobin (Bld) [Mass/Vol] 15.3 g/dL Normal 12.0-16.0 [facility] Comment on above: Performed By: #### U AMIC #### [facility] [address] [address] [address] Donis Mancini IG # 0.03 10e3/ul Normal 0.00-0.03 [facility] Comment on above: Performed By: #### U AMIC #### [facility] [address] [place] [address] Dr. Donis Mancini IG % 0.3 % Normal 0.0-0.5 [facility] Comment on above: Performed By: #### U AMIC #### [facility] [address] [place] [address] Dr. Donis Mancini LYMPH # 1.7 103/ul Normal 1.2-3.8 [facility] Comment on above: Performed By: #### U AMIC #### [facility] [address] [place] [address] Dr. Donis Mancini Lymphocytes/100 WBC (Bld) 15.9 % Critically low 20.5-60.0 [facility] Comment on above: Performed By: #### U AMIC #### [facility] [address] [place] [address] Dr. Donis Mancini MANUAL DIFF REQ NO Normal [facility] Comment on above: Performed By: #### U AMIC #### [facility] [address] [address] [address] Donis Mancini MCH (RBC) [Entitic mass] 31.5 pg Normal 26.7-34.0 [facility] Comment on above: Performed By: #### U AMIC #### [facility] [address] [place] [address] Dr. Donis Mancini MCHC (RBC) [Mass/Vol] 33.4 g/dL Normal 29.9-35.2 [facility] Comment on above: Performed By: #### U AMIC #### [facility] [address] [address] [address] Donis Mancini MCV (RBC) [Entitic vol] 94.2 fL Normal 81.0-99.0 [facility] Comment on above: Performed By: #### U AMIC #### [facility] [address] [address] [address] Donis Mancini MONO # 0.6 103/ul Normal 0.3-0.8 [facility] Comment on above: Performed By: #### U AMIC #### [facility] [address] [place] [address] Dr. Donis Mancini Monocytes/100 WBC (Bld) 5.8 % Normal 1.7-12.0 [facility] Comment on above: Performed By: #### U AMIC #### [facility] [address] [place] [address] Dr. Donis Mancini NEUT # 7.8 103/ul Critically high 1.4-6.5 [facility] Comment on above: Performed By: #### U AMIC #### [facility] [address] [place] [address] Dr. Donis Mancini Neutrophils/100 WBC (Bld) 72.4 % Normal 43.0-75.0 [facility] Comment on above: Performed By: #### U AMIC #### [facility] [address] [place] [address] Dr. Donis Mancini Platelet mean volume (Bld) [Entitic vol] 9.9 fL Normal 9.5-13.5 [facility] Comment on above: Performed By: #### U AMIC #### [facility] [address] [place] [address] Dr. Donis Mancini PLT 281 103/ul Normal 150-450 [facility] Comment on above: Performed By: #### U AMIC #### [facility] [address] [address] [address] Donis Mancini RBC 4.86 106/ul Normal 4.20-5.40 [facility] Comment on above: Performed By: #### U AMIC #### [facility] [address] [address] [address] Donis Mancini WBC 10.8 103/ul Normal 4.0-11.0 [facility] Comment on above: Performed By: #### U AMIC #### [facility] [address] [address] [address] Donis Mancini CULTURE URINEon 01-22-2022 CULTURE URINE Culture Observations: LIGHT GROWTH OF MIXED GENITAL RAMBO. NO POTENTIAL PATHOGENS SEEN. Normal The [facility] Comment on above: Performed By: #### U RCX #### [facility] [address] [place] [address] Dr. Donis Mancini GLYCOHEMOGLOBIN A1Con 2021 ADA RECOMMENDATION SEE BELOW Normal [facility] Comment on above: Result Comment: ADA RECOMMENDED LIMIT 4.0 - 6.0 ADA THERAPEUTIC TARGET < 7.0 ACTION SUGGESTED > 7.0 Performed By: #### A 1C ####[facility] [id number] [address]DrGene Mancini Glucose [Mass/Vol] 100 mg/dL Normal [facility] Comment on above: Performed By: #### A 1C ####[facility] [id number] [address]DrGene Mancini HbA1c (Bld) [Mass fraction] 5.1 % Normal 4.5-6.2 [facility] Comment on above: Performed By: #### A 1C ####[facility] [id number] [address]DrGene Mancini SEAN BOX TEST PT SEND OUTo n 01-22-2022 SENT TO REF LAB 01/22/2022 Normal [facility] Comment on above: Performed By: #### N BOX ####[facility] [id number] [address]DrGene Mancini TYPE AND SCREENon 01-22-2022 TYPE AND SCREEN Negative Normal [facility] Comment on above: Performed By: #### T NS #### [facility] [address] [address] [address] Donis Mancini US PREG TVon 01-17-2022 [...] COCO STERN Date: 2022-01-17 09:34 Normal The [facility] Provider Letteron 04-06-2021 Provider Letter April 06, 2021 Dear Vimal, We have been trying to reach you with no success. It is important that you return our call regarding your appointment upon receiving this letter. Also, at the time of your call, please provide us with your current information. Thank you for your prompt attention to this matter. Sincerely, [facility] [address] [place] [id number] [facility] Ambulatory Clinical Summaryo n 03-10-2021 Ambulatory Clinical Summary {[id number]}CD:[id number] [facility] Ambulatory Clinical Summaryo n 03-05-2021 Ambulatory Clinical Summary {[id number]}CD:[id number] Shree Marcum [facility] Phone Visit- Tele healthon 03-05-2021 Gynecology [...] only communication with the patient located at [address] [place] [phone], with no one else. 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 CODING DATE: 12/18/2020 FINAL [facility] STATUS: Home (Routine DC) PAYOR: Lory [...] CphT Date Saved: 12/18/2020 12:44 pm Normal [facility] Physician Orderon 12-16-2020 Physician Order [id number] #[id number]:127 Normal [facility] Rapid COVID Antigen (MC)on 12-16-2020 Rapid COV Int NEG Ctl Pass Normal [facility] Comment on above: Performed By: #### 2 [id number] #### [facility] [address] [place] [address] Rapid COV Int POS Ctl Pass Normal [facility] Comment on above: Performed By: #### 2 [id number] #### [facility] [address] [place] [address] SARS-CoV-2 (COVID-19) RNA INESSA+probe Ql (Unsp spec) Detected Abnormal Not Detected [facility] Comment on above: Result Comment: Left a message for callback. 12/16/2020 11:42:47 EDT Results faxed to infection control. The [employer]? System for Rapid Detection of SARS-CoV-2 [...] or revoked sooner. Performed By: #### 2 [id number] #### [facility] [address] [place] [address] Employed in [employer] Unknown Normal [facility] Comment on above: Performed By: #### 2 [id number] #### [facility] [address] [place] [address] First Test Unknown Normal [facility] Comment on above: Performed By: #### 2 [id number] #### [facility] [address] [place] [address] Hospitalized? NO Normal [facility] Comment on above: Performed By: #### 2 [id number] #### [facility] [address] [place] [address] ICU NO Normal [facility] Comment on above: Performed By: #### 2 [id number] #### [facility] [address] [place] [address] ? Unknown Normal [facility] Comment on above: Performed By: #### 2 [id number] #### [facility] [address] [place] [address] Resides in a Congregate Care Setting Unknown Normal [facility] Comment on above: Performed By: #### 2 [id number] #### [facility] [address] [place] [address] Symptomatic as defined by CDC YES Normal [facility] Comment on above: Performed By: #### 2 [id number] #### [facility] [address] [place] [address] Ambulatory Clinical Summaryo n 11-25-2020 Ambulatory Clinical Summary {[id number]}CD:[id number] Normal [facility] Vital Signs Date Time Vital Sign Value Performing Clinician Facility 05-28-2025 10:48-0400 Body mass index (BMI) [Ratio] 32.06 kg/m2 Jose Michael DO Work Phone: [facility] 05-28-2025 10:48-0400 Body weight 82.1 kg Jose Michael DO Work Phone: [facility] 05-28-2025 10:48-0400 Diastolic blood pressure 80 mm[Hg] Jose Michael DO Work Phone: [facility] 05-28-2025 10:48-0400 Systolic blood pressure 136 mm[Hg] Jose Michael DO Work Phone: [facility] 05-22-2025 15:02-0400 Body mass index (BMI) [Ratio] 31.49 kg/m2 Jose Michael DO Work Phone: [facility] 05-22-2025 15:02-0400 Body weight 80.63 kg Jose Michael DO Work Phone: [facility] 05-22-2025 15:02-0400 Diastolic blood pressure 92 mm[Hg] Jose Michael DO Work Phone: [facility] 05-22-2025 15:02-0400 Systolic blood pressure 138 mm[Hg] Jose Michael DO Work Phone: [facility] 05-14-2025 14:59-0400 Body mass index (BMI) [Ratio] 31.35 kg/m2 Jose Michael DO Work Phone: [facility] 05-14-2025 14:59-0400 Body weight 80.29 kg Jose Michael DO Work Phone: [facility] 05-14-2025 14:59-0400 Diastolic blood pressure 90 mm[Hg] Jose Michael DO Work Phone: [facility] 05-14-2025 14:59-0400 Systolic blood pressure 140 mm[Hg] Jose Michael DO Work Phone: [facility] 05-13-2025 16:11-0400 Body weight 79.83 kg Marjorie Rico RN Work Phone: [facility] 04-30-2025 11:52-0400 Body mass index (BMI) [Ratio] 31 kg/m2 Rossana Ramos PA Work Phone: [facility] 04-30-2025 11:52-0400 Body weight 79.38 kg Rossana Rachel PA Work Phone: [facility] 04-30-2025 11:52-0400 Diastolic blood pressure 94 mm[Hg] Rossana Rachel PA Work Phone: [facility] 04-30-2025 11:52-0400 Systolic blood pressure 140 mm[Hg] Rossana Tornillo PA Work Phone: [facility] 04-11-2025 15:38-0400 Body mass index (BMI) [Ratio] 30.2 kg/m2 Rossana Tornillo PA Work Phone: [facility] 04-11-2025 15:38-0400 Body weight 77.34 kg Rossana Rachel PA Work Phone: [facility] 04-11-2025 15:38-0400 Diastolic blood pressure 100 mm[Hg] Rossana Tornillo PA Work Phone: [facility] 04-11-2025 15:38-0400 Systolic blood pressure 142 mm[Hg] Rossana Rachel PA Work Phone: [facility] 03-14-2025 11:36-0400 Body mass index (BMI) [Ratio] 29.23 kg/m2 Jose Michael DO Work Phone: [facility] 03-14-2025 11:36-0400 Body weight 74.84 kg Jose Michael DO Work Phone: [facility] 03-14-2025 11:36-0400 Diastolic blood pressure 76 mm[Hg] Jose Michael DO Work Phone: [facility] 03-14-2025 11:36-0400 Systolic blood pressure 112 mm[Hg] Jose Michael DO Work Phone: [facility] 02-20-2025 16:08-0400 Body mass index (BMI) [Ratio] 28.83 kg/m2 Rossana Ramos PA Work Phone: [facility] 02-20-2025 16:08-0400 Body weight 73.82 kg Rossana Ramos PA Work Phone: [facility] 02-20-2025 16:08-0400 Diastolic blood pressure 82 mm[Hg] Rossana Ramos PA Work Phone: [facility] 02-20-2025 16:08-0400 Systolic blood pressure 110 mm[Hg] Rossana Ramos PA Work Phone: [facility] 01-14-2025 15:42-0400 Body mass index (BMI) [Ratio] 27.3 kg/m2 Jose Michael DO Work Phone: [facility] 01-14-2025 15:42-0400 Body weight 69.91 kg Jose Michael DO Work Phone: [facility] 01-14-2025 15:42-0400 Diastolic blood pressure 70 mm[Hg] Jose Michael DO Work Phone: [facility] 01-14-2025 15:42-0400 Systolic blood pressure 120 mm[Hg] Jose Michael DO Work Phone: [facility] 08-20-2024 10:55-0500 Body mass index (BMI) [Ratio] 25.93 kg/m2 Rossana Rachel PA Work Phone: [facility] 08-20-2024 10:55-0500 Body weight 66.41 kg Rossana Tornillo PA Work Phone: [facility] 08-20-2024 10:55-0500 Diastolic blood pressure 70 mm[Hg] Rossana Rachel PA Work Phone: [facility] 08-20-2024 10:55-0500 Systolic blood pressure 120 mm[Hg] Rossana Rachel PA Work Phone: [facility] 08-06-2024 09:38-0500 Body mass index (BMI) [Ratio] 25.47 kg/m2 Jose Michael DO Work Phone: [facility] 08-06-2024 09:38-0500 Body weight 65.23 kg Jose Michael DO Work Phone: [facility] 08-06-2024 09:38-0500 Diastolic blood pressure 70 mm[Hg] Jose Michael DO Work Phone: [facility] 08-06-2024 09:38-0500 Systolic blood pressure 120 mm[Hg] Jose Michael DO Work Phone: [facility] 06-29-2024 09:12-0400 Body mass index (BMI) [Ratio] 24.58 kg/m2 Nom Nurse [facility] 06-29-2024 09:12-0400 Body weight 62.94 kg [facility] Nurse [facility] 06-29-2024 09:12-0400 Diastolic blood pressure 72 mm[Hg] Nom Nurse [facility] 06-29-2024 09:12-0400 Systolic blood pressure 122 mm[Hg] Nom Nurse [facility] 12-26-2022 13:45-0400 Body height 160.02 cm Jennifer Huston Other [facility] Other 12-26-2022 13:45-0400 Body mass index (BMI) [Ratio] 27.45 kg/m2 Jennifer Huston Other [facility] Other 12-26-2022 13:45-0400 Body temperature 97 [degF] Jennifer Huston Other [facility] Other 12-26-2022 13:45-0400 Body weight 70.31 kg Jennifer Huston Other [facility] Other 12-26-2022 13:45-0400 Diastolic blood pressure 89 mm[Hg] Jennifer Huston Other [facility] Other 12-26-2022 13:45-0400 Respiratory rate 18 /min Jennifer Huston Other [facility] Other 12-26-2022 13:45-0400 SaO2% (BldA) [Mass fraction] 100 % Jennifer Huston Other [facility] Other 12-26-2022 13:45-0400 Systolic blood pressure 135 mm[Hg] Jennifer Huston Other [facility] Other Encounters Encounter Date Encounter Type Care Provider Facility Start: 06-05-2025 End: 06-05-2025 Telephone encounter Xenia London RD Work Phone: [facility] Start: 06-04-2025 End: 06-04-2025 Office consultation new/estab patient 60 min Manas Martin MD Work Phone: [facility] Comment on above: Poor growth af fecting management of mother in third trimester, single or unspecified fetus (Primary Dx) Start: 06-04-2025 End: 06-04-2025 Orders Only Marii Yoo RN [facility] Comment on above: Poor growth af [...] abstracting Scanning Provider External [facility] Start: 05-28-2025 End: 05-28-2025 Bamboo flowsheet Jose Michael DO Work Phone: [facility] Start: 05-28-2025 End: 05-28-2025 Bamboo flowsheet Jose Michael DO Work Phone: [facility] Start: 05-28-2025 End: 05-28-2025 Telephone encounter Chante TEJEDA Work Phone: [facility] Start: 05-28-2025 End: 05-28-2025 ambulatory JOSE MICHAEL Not Available Start: 05-28-2025 End: 05-28-2025 flow sheet Jose Michael DO Work Phone: [facility] Comment on above: Third trimester preg alysa (HHS-HCC); 32 weeks gestation of (HHS-HCC); Gestational diabetes mellitus (GDM), antepartum, gestational diabetes method of control unspecified (HHS-HCC); induced hypertension, antepartum (HHS-HCC) Start: 05-25-2025 End: 05-25-2025 Clinisync Result Encounter Rossana BISWAS Work Phone: [facility] External Department Unsolicited Start: 05-25-2025 End: 05-25-2025 Clinisync Result Encounter Rossana BISWAS Work Phone: [facility] External Department Unsolicited Start: 05-22-2025 End: 05-22-2025 ambulatory JOSE MICHAEL Not Available Start: 05-22-2025 End: 05-22-2025 flow sheet Jose Michael DO Work Phone: [facility] Comment on above: Third trimester preg alysa ([facility]); 31 weeks gestation of ([facility]) Start: 05-22-2025 End: 05-22-2025 Bamboo flowsheet Jose Michael DO Work Phone: [facility] Start: 05-22-2025 End: 05-22-2025 Bamboo flowsheet Jose Michael DO Work Phone: [facility] Start: 05-21-2025 End: 05-21-2025 Telephone encounter Chante TEJEDA Work Phone: Maternal- Medicine at [facility] Start: 05-20-2025 End: 05-20-2025 Clinisync Result Encounter Jose Michael DO Work Phone: [facility] External Department Unsolicited Start: 05-20-2025 End: 05-20-2025 Clinisync Result Encounter Jose Michael DO Work Phone: [facility] External Department Unsolicited Start: 05-18-2025 End: 05-18-2025 Clinisync Result Encounter Jose Michael DO Work Phone: [facility] External Department Unsolicited Start: 05-18-2025 End: 05-18-2025 Clinisync Result Encounter Jose Micheal DO Work Phone: [facility] Unsolicited Start: 05-14-2025 End: 05-14-2025 ambulatory JOSE MICHAEL Not Available Start: 05-14-2025 End: 05-14-2025 flow sheet Jose Michael DO Work Phone: [facility] Comment on above: Third trimester preg alysa ([facility]); 30 weeks gestation of ([facility]); induced hypertension, antepartum ([facility]) Start: 05-14-2025 End: 05-14-2025 Bamboo flowsheet Jose Michael DO Work Phone: [facility] Start: 05-14-2025 End: 05-14-2025 Bamboo flowsheet Jose Michael DO Work Phone: [facility] Start: 05-13-2025 End: 05-13-2025 ambulatory Marjorie Rico RN Work Phone: Maternal- Medicine at [facility] Comment on above: Gestational diabetes mellitus (GDM) in third trimester, gestational diabetes method of control unspecified Start: 05-11-2025 End: 05-11-2025 Clinisync Result Encounter Rossana BISWAS Work Phone: [facility] External Department Unsolicited Start: 05-11-2025 End: 05-11-2025 Clinisync Result Encounter Rossana BISWAS Work Phone: [facility] External Department Unsolicited Start: 05-10-2025 End: 05-10-2025 Chart abstracting Scanning Provider External Maternal- Medicine at [facility] Start: 05-06-2025 End: 05-06-2025 Clinisync Result [...] encounter Jose Rodriguez DO Work Phone: [facility] [place] [facility] Start: 04-30-2025 End: 04-30-2025 Bamboo flowsheet Rossana Scottey PA Work Phone: [facility] [place] [facility] Start: 04-30-2025 End: 04-30-2025 Bamboo flowsheet Rossana Ramos PA Work Phone: [facility] [place] [facility] Start: 04-30-2025 End: 04-30-2025 ambulatory ROSSANA RAMOS Not Available Start: 04-30-2025 End: 04-30-2025 Patient encounter status Rossana Tornillo PA Work Phone: [facility] Work Phone: Start: 04-30-2025 End: 04-30-2025 flow sheet Rossana Ramos TRUE Work Phone: [facility] Comment on above: BP check; -induced hypertension in third trimester ([facility]); Gestational diabetes mellitus (GDM) in third trimester, gestational diabetes method of control unspecified ([facility]) Start: 04-27-2025 End: 04-27-2025 Clinisync Result Encounter Rossana Ramos TRUE Work Phone: [facility] Unsolicited Start: 04-27-2025 End: 04-27-2025 Clinisync Result Encounter Rossana Ramos TRUE Work Phone: [facility] External [facility] Unsolicited Start: 04-25-2025 End: 04-25-2025 flow sheet Rossana Ramos TRUE Work Phone: [facility] Comment on above: Second trimester pre gnancy ([facility]); 27 weeks gestation of ([facility]); induced hypertension, antepartum ([facility]) Start: 04-25-2025 End: 04-25-2025 ambulatory ROSSANA RAMOS Not Available Start: 04-25-2025 End: 04-25-2025 Bamboo flowsheet Rossana BISWAS Work Phone: [facility] [place] [facility] Start: 04-25-2025 End: 04-25-2025 Bamboo flowsheet Rossana Ramos PA Work Phone: [facility] Start: 04-11-2025 End: 04-11-2025 ambulatory ROSSANA RAMOS Not Available Start: 04-11-2025 End: 04-11-2025 flow sheet Rossana Ramos PA Work Phone: [facility] Comment on above: Second trimester pre gnancy ([facility]); 25 weeks gestation of ([facility]); Diabetes mellitus screening; Elevated BP without diagnosis of hypertension Start: 04-11-2025 End: 04-11-2025 Bamboo flowsheet Rossana BISWAS Work Phone: [facility] Start: 04-11-2025 End: 04-11-2025 Bamboo flowsheet Rossana Rachel PA Work Phone: [...] Comment on above: Second trimester pre gnancy ([facility]); 21 weeks gestation of ([facility]) Start: 03-08-2025 End: 03-08-2025 Clinisync Result Encounter Jose Michael DO Work Phone: [facility] Unsolicited Start: 03-08-2025 End: 03-08-2025 Clinisync Result Encounter Jose Michael DO Work Phone: [facility] External [facility] Unsolicited Start: 02-20-2025 End: 02-20-2025 Patient encounter procedure Rossana BISWAS Work Phone: [facility] Start: 02-20-2025 End: 02-20-2025 flow sheet Rossana BISWAS Work Phone: [facility] Comment on above: Screening, [...] Start: 08-10-2024 End: 08-10-2024 ambulatory PHYSICIAN NO [facility] Work Phone: Start: 08-10-2024 End: 08-10-2024 Departed Referred PHYSICIAN NO [facility] Start: 08-06-2024 [...] 12-26-2022 End: 12-26-2022 ambulatory Jennifer Huston Other [facility] [employer] Other Start: 12-26-2022 End: 12-26-2022 Patient encounter procedure 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 Huston Work Phone: [facility] Work [...] Procedure Procedure Detail Performing Clinician Start: 06-01-2025 OB BPP W NON-STRESS Rossana BISWAS Work Phone: Start: 05-28-2025 Urnls dip stick/tabl et rgnt non-auto w/o micrscp Jose Michael DO Work Phone: Start: 05-25-2025 OB BPP W NON-STRESS Rossana BISWAS Work Phone: Start: 05-22-2025 Urnls dip stick/tabl et rgnt non-auto w/o micrscp Joes Michael DO Work Phone: Start: 05-20-2025 [facility] TOTAL PROTEIN 24 HOUR URINE Jose Michael DO Work Phone: Start: 05-18-2025 OB BPP W NON-STRESS Rossana [...] dip stick/tabl et rgnt non-auto w/o micrscp Joseangelica Hednrickso DO Work Phone: Start: 01-05-2025 Antibody rubella [...] 07-21-2024 [facility] Work [facility]: Start: 06-29-2024 End: 06-29-2024 Urnls dip stick/tablet rgnt non-auto w/o micrscp [facility] Work Phone: Start: 12-26-2022 Plain X-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 hand 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 Huston Work Phone: Start: 11-02-2022 Cytp cerv/vag auto t hin layer prep mnl screen [facility] DO Work Phone: Start: 08-10-2022 Delivery [...] malign ant neoplasm of cervix Pap Smear [facility] Start: 06-04-2026 End: 06-04-2026 US MFM with or without consult US MFM with or without consult Imaging Routine Poor growth affecting management of mother in third trimester, single or unspecified fetus Gestational diabetes mellitus (GDM) in third trimester, gestational diabetes method of control unspecified Expected: 06/04/2026 (Approximate), Expires: 06/04/2026 [facility] Work Phone: Comment on above: Expected: 06/04/2026 (Approximate), Expires: 06/04/2026 Start: 06-24-2025 End: 06-24-2025 Patient encounter procedure 06/24/2025 2:15 PM EDT Appointment Maternal Medicine Sarah Ann [address] [place] [phone] Maternal Medicine Sarah Ann Start: 06-18-2025 End: 06-18-2025 Patient encounter procedure 06/18/2025 3:30 PM EDT Appointment [facility] [address] [place] [phone] [facility] Start: 06-12-2025 End: 06-12-2025 Patient encounter procedure 06/12/2025 3:00 PM EDT Routine [facility] [address] [place] [phone] Rossana Ramso PA [address] [place] [address] [facility] Start: 06-11-2025 End: 06-11-2025 Patient encounter procedure 06/11/2025 8:00 AM EDT Appointment [facility] [address] [place] [phone] [facility] Start: 06-04-2025 End: 06-04-2025 Patient encounter procedure 06/04/2025 1:00 PM EDT Appointment [facility] [address] [place] [address] Jose Rodriguez, [address] [place] [address] [facility] Start: 06-04-2025 Subsequent hospital visit by physician 06/04/2025 1:00 PM EDT Hospital Encounter [facility] [address] [place] [address] Jose Rodriguez R, DO [address] [place] [address] [facility] Start: 05-28-2025 End: 05-28-2025 Patient encounter procedure 05/28/2025 10:30 AM EDT Routine [facility] [address] [place] [phone] Jose Rodriguez, DO [address] [place] [address] [facility] Start: 05-27-2025 Influenza vaccination [facility] Start: 05-22-2025 End: 05-22-2025 Patient encounter procedure 05/22/2025 2:40 PM EDT Routine [facility] [address] [place] [place] [phone] Jose Rodriguez, DO [address] [place] [address] [facility] Start: 05-14-2025 End: 05-14-2025 Patient encounter procedure 05/14/2025 2:40 PM EDT Routine [facility] [place] [facility] [address] [place] [phone] Jose Rodriguez, DO [address] [place] [address] [facility] Start: 05-14-2025 End: 05-14-2026 Alanine aminotransferase [Enzymatic activity/volume] in Serum or Plasma ALT Lab Routine induced hypertension, antepartum ([facility]) Expected: 05/14/2025 (Approximate), Expires: 05/14/2026 [facility] Comment on above: Expected: 05/14/2025 (Approximate), Expires: 05/14/2026 Start: 05-14-2025 End: 05-14-2026 Aspartate aminotransferase [Enzymatic activity/volume] in Serum or Plasma AST Lab Routine induced hypertension, antepartum ([facility]-HCC) Expected: 05/14/2025 (Approximate), Expires: 05/14/2026 [facility] Comment on above: Expected: 05/14/2025 (Approximate), Expires: 05/14/2026 Start: 05-14-2025 End: 05-14-2026 CBC W Auto Differential panel - Blood CBC and differential Lab Routine induced hypertension, antepartum ([facility]) Expected: 05/14/2025 (Approximate), Expires: 05/14/2026 [facility] Comment on above: Expected: 05/14/2025 (Approximate), Expires: 05/14/2026 Start: 05-14-2025 End: 05-14-2026 Creatinine [Mass/volume] in Serum or Plasma Creatinine Lab Routine induced hypertension, antepartum ([facility]CC) Expected: 05/14/2025 (Approximate), Expires: 05/14/2026 [facility] Work Phone: Comment on above: Expected: 05/14/2025 (Approximate), Expires: 05/14/2026 Start: 05-14-2025 End: 05-14-2026 Lactate dehydrogenase [Enzymatic activity/volume] in Serum or Plasma by Lactate to pyruvate reaction Lactate dehydrogenase Lab Routine induced hypertension, antepartum ([facility]-HCC) Expected: 05/14/2025, Expires: 05/14/2026 [facility] Comment on above: Expected: 05/14/2025 , Expires: 05/14/2026 Start: 05-14-2025 End: 05-14-2026 Protein, urine, 24 hour Protein, urine, 24 hour Lab Routine induced hypertension, antepartum ([facility]HS-HCC) Expected: 05/14/2025 (Approximate), Expires: 05/14/2026 [facility] Comment on above: Expected: 05/14/2025 (Approximate), Expires: 05/14/2026 Start: 05-14-2025 End: 05-14-2026 Pt and ptt Pt and ptt Lab Routine induced hypertension, antepartum ([facility]-HCC) Expected: 05/14/2025, Expires: 05/14/2026 [facility] Comment on above: Expected: 05/14/2025 , Expires: 05/14/2026 Start: 05-14-2025 End: 05-14-2026 Urate [Mass/volume] in Serum or Plasma Uric acid Lab Routine induced hypertension, antepartum ([facility]-HCC) Expected: 05/14/2025 (Approximate), Expires: 05/14/2026 [facility] Comment on above: Expected: 05/14/2025 (Approximate), Expires: 05/14/2026 Start: 05-14-2025 End: 05-14-2026 Urea nitrogen [Mass/volume] in Serum or Plasma BUN Lab Routine induced hypertension, antepartum ([facility]-HCC) Expected: 05/14/2025, Expires: 05/14/2026 [facility] Comment on above: Expected: 05/14/2025 , Expires: 05/14/2026 Start: 05-13-2025 End: 05-13-2025 ambulatory 05/13/2025 1:30 PM EDT Support Visit Maternal- Medicine at [facility] [address] [place] [phone] Marjorie Rico RN [address] [facility] [address], [address] [place] [address] Xenia [place], ALEC [address], [address] [place] [address] Maternal- Medicine at [facility] Start: 04-30-2025 End: 10-31-2025 US biophysical [...] 10:50 AM EDT Routine [facility] [address] [place] [phone] Rossana Ramos PA [address] [facility] [place] [address] [facility] Start: 04-25-2025 End: 04-25-2025 Patient encounter procedure [facility] Comment on above: Arrived Start: 04-25-2025 [...] ([facility]) Expected: 04/25/2025 (Approximate), Expires: 04/25/2026 [facility] Comment on above: Expected: 04/25/2025 (Approximate), Expires: 04/25/2026 Start: 04-25-2025 End: 04-25-2026 Creatinine [Mass/volume] in Serum or Plasma Creatinine Lab Routine induced hypertension, antepartum ([facility]-HCC) Expected: 04/25/2025 (Approximate), Expires: 04/25/2026 [facility] Work Phone: Comment on above: Expected: 04/25/2025 (Approximate), Expires: 04/25/2026 Start: 04-25-2025 End: 04-25-2026 Lactate dehydrogenase [Enzymatic activity/volume] in Serum or Plasma by Lactate to pyruvate reaction Lactate dehydrogenase Lab Routine induced hypertension, antepartum ([facility]-HCC) Expected: 04/25/2025, Expires: 04/25/2026 [facility] Comment on above: Expected: 04/25/2025 , Expires: 04/25/2026 Start: 04-25-2025 End: 04-25-2026 Protein, urine, 24 hour Protein, urine, 24 hour Lab Routine induced hypertension, antepartum ([facility]-HCC) Expected: 04/25/2025 (Approximate), Expires: 04/25/2026 [facility] Comment on above: Expected: 04/25/2025 (Approximate), Expires: 04/25/2026 Start: 04-25-2025 End: 04-25-2026 Pt and ptt Pt and ptt Lab Routine induced hypertension, antepartum ([facility]-HCC) Expected: 04/25/2025, Expires: 04/25/2026 [facility] Comment on above: Expected: 04/25/2025 , Expires: 04/25/2026 Start: 04-25-2025 End: 04-25-2026 Urate [Mass/volume] in Serum or Plasma Uric acid Lab Routine induced hypertension, antepartum ([facility]-HCC) Expected: 04/25/2025 (Approximate), Expires: 04/25/2026 [facility] Comment on above: Expected: 04/25/2025 (Approximate), Expires: 04/25/2026 Start: 04-25-2025 End: 04-25-2026 Urea nitrogen [Mass/volume] in Serum or Plasma BUN Lab Routine induced hypertension, antepartum ([facility]) Expected: 04/25/2025, Expires: 04/25/2026 [facility] Comment on above: Expected: 04/25/2025 , Expires: 04/25/2026 Start: 04-11-2025 End: 04-11-2025 Patient encounter procedure 04/11/2025 3:30 PM EDT Routine [facility] [address] [place] [address] Rsosana Ramos PA [address] [place], [place] [phone] [facility] Start: 04-11-2025 End: 04-11-2026 CBC panel - Blood by Automated count CBC Lab Routine Diabetes mellitus screening Expected: 04/11/2025 (Approximate), Expires: 04/11/2026 [facility] Work Phone: Comment on above: Expected: 04/11/2025 (Approximate), Expires: 04/11/2026 Start: 04-11-2025 End: 04-11-2026 Measurement of glucose 1 hour after glucose challenge for glucose tolerance test Glucose tolerance, 1 hour Lab Routine Diabetes mellitus screening Expected: 04/11/2025 (Approximate), Expires: 04/11/2026 [facility] Comment on above: Expected: 04/11/2025 (Approximate), Expires: 04/11/2026 Start: 03-14-2025 End: 03-14-2025 Patient encounter procedure 03/14/2025 10:50 AM EDT Routine [facility] [address] [place] [phone] Jose Rodriguez DO [address] [place], [place] [phone] [facility] Start: 02-20-2025 End: 02-20-2025 [...] Initial [facility] [address] [place] [phone] [facility] Start: 12-14-2024 End: 12-14-2024 Professional / ancillary services management 12/14/2024 8:30 AM EDT Ancillary Procedure [facility] [address] [place] [address] [facility] Start: 08-20-2024 End: 08-20-2024 Patient encounter procedure 08/20/2024 10:20 AM EST Office Visit [facility] [address] [place] [phone] Rossana Ramos PA [address] [place], [place] [phone] [facility] Start: 08-06-2024 End: 08-06-2024 Patient encounter procedure 08/06/2024 9:10 AM EST Routine [facility] [address] [place] [address] Jose Rodriguez, [address] [place] [address] [facility] Start: 06-29-2024 End: 06-29-2025 ABO/Rh ABO/Rh Lab Routine Missed menses , unspecified gestational age Expected: 06/29/2024 (Approximate), Expires: 06/29/2025 [facility] Comment on above: Expected: 06/29/2024 (Approximate), Expires: 06/29/2025 Start: 06-29-2024 End: 06-29-2025 Blood type and Indirect antibody screen panel - Blood Type and screen Lab Routine Missed menses , unspecified gestational age Expected: 06/29/2024 (Approximate), Expires: 06/29/2025 [facility] Work Phone: Comment on above: Expected: 06/29/2024 (Approximate), Expires: 06/29/2025 Start: 06-29-2024 End: 06-29-2025 Drugs of abuse panel - Urine by Screen method Rapid drug screen, urine Lab Routine , unspecified gestational age Encounter for supervision of normal first in first trimester Expected: 06/29/2024 (Approximate), Expires: 06/29/2025 [facility] Comment on above: Expected: 06/29/2024 (Approximate), Expires: 06/29/2025 Start: 06-29-2024 End: 06-29-2025 US Pelvis transvaginal US OB transvaginal Imaging Routine Missed menses Expected: 06/29/2024 (Approximate), Expires: 06/29/2025 [facility] Comment on above: Expected: 06/29/2024 (Approximate), Expires: 06/29/2025 Start: 05-27-2024 Influenza vaccination Influenza Vacc ine (#1) [facility] Start: 05-01-2024 DTaP,Tdap and Td Vac cines (7 - Td or Tdap) DTaP,Tdap and Td Vaccines (7 - Td or Tdap) [facility] Start: 2020 DTaP,Tdap and Td Vac cines (1 - Tdap) DTaP,Tdap and Td Vaccines (1 - Tdap) [facility] Start: 2019 Adult BMI Screening Adult BMI Screen ing [facility] Start: 2013 Depression Screening Depression Scre ening [facility] Start: 2013 Tobacco Screening Tobacco Screening [facility] Start: 2001 Screening for Chlamy jd trachomatis Chlamydia Screening [facility] Bacteria identified in Urine by Culture Urine culture Microbiology Routine Missed menses Ordered: 06/29/2024 [facility] Comment on above: Ordered: 06/29/2024 Bacteria identified in Urine by Culture Urine culture Microbiology Routine Urinary frequency Ordered: 02/20/2025 [facility] Comment on above: Ordered: 02/20/2025 CBC W Auto Different ial panel - Blood CBC and differential Lab Routine Missed menses , unspecified gestational age Ordered: 06/29/2024 [facility] Comment on above: Ordered: 06/29/2024 CHLAMYDIA TRACHOMATI S (GENITO/STI) CHLAMYDIA TRACHOMATIS (GENITO/STI) Lab Routine STD exposure Ordered: 02/20/2025 [facility] Comment on above: Ordered: 02/20/2025 Cytology Cervical or vaginal smear or scraping study Pap Smear Pathology and Cytology Routine Well woman exam with routine gynecological exam Ordered: 02/20/2025 [facility] Comment on above: Ordered: 02/20/2025 Hemoglobin A1c/Hemoglobin.total in Blood Hemoglobin A1c Lab Routine Missed menses , unspecified gestational age Ordered: 06/29/2024 [facility] Comment on above: Ordered: [...] , unspecified gestational age Ordered: 06/29/2024 [facility] Comment on above: Ordered: 06/29/2024 HIV-1/HIV-2 antigen/antibody combination immunoassay HIV-1 and HIV-2 antibodies Lab Routine Missed menses , unspecified gestational age Ordered: 06/29/2024 [facility] Comment on above: Ordered: 06/29/2024 Neisseria gonorrhoea e DNA [Presence] in Unspecified specimen by INESSA with probe detection Neisseria gonorrhea DNA probe, direct Lab Routine STD exposure Ordered: 02/20/2025 [facility] Comment on above: Ordered: 02/20/2025 Reagin Ab [Presence] in Serum by RPR RPR Lab Routine Missed menses , unspecified gestational age Ordered: 06/29/2024 [facility] Comment on above: Ordered: 06/29/2024 Rubella antibody, IgG Rubella an tibody, IgG Lab Routine Missed menses , unspecified gestational age Ordered: 06/29/2024 [facility] Comment on above: Ordered: 06/29/2024 SURESWAB(R) ADVANCED VAGINITIS PLUS, TMA SURESWAB(R) ADVANCED VAGINITIS PLUS, TMA Pathology and Cytology Routine STD exposure Ordered: 02/20/2025 [facility] Work Phone: Comment on above: Ordered: 02/20/2025 Immunizations Immunization Date Immunization Notes Care Provider Ryne abrams 08-28-2002 influenza virus vacc ine, unspecified formulation Noms Nurse [facility] Payers Date Payer Category Payer Medicaid HMO [id number] 2024 [facility] [id number] 2023 Medicaid [employer] [place] [id number] 2023-Present [address] [place] [address] [id number] 2023 Medicaid (Managed Care) [facility] MEDICAID [id number] 2021 Blue Cross Blue Shield [id number] 2021 Unknown BCBS BCBS [id number] 2021-Present [phone] [address] [place] [address] [id number] 2001 Unknown [id number] 2.16.840.1.728037.3.579.2. 593 2001 Unknown [id number] 2.16.840.1.447710.3.579.2. 593 2001 Unknown [id number] 2.16.840.1.396045.3.579.2. 593 2001 Unknown [id number] 2.16.840.1.918311.3.579.2. 593 2001 Unknown [id number] 2.16.840.1.456726.3.579.2. 593 2001 Unknown [id number] 2.16.840.1.684170.3.579.2. 593 2001 Unknown [id number] 2.16.840.1.298378.3.579.2. 593 2001 Unknown [id number] 2.16.840.1.476113.3.579.2. 593 2001 Unknown [id number] 2.16.840.1.594275.3.579.2. 593 2001 Unknown [id number] 2.16.840.1.729514.3.579.2. 593 2001 Unknown [id number] 2.16.840.1.651471.3.579.2. 593 2001 Unknown [id number] 2.16.840.1.328861.3.579.2. 593 2001 Unknown [id number] 2.16.840.1.046293.3.579.2. 593 2001 Unknown [id number] 2.16.840.1.760697.3.579.2. 593 2001 Unknown [id number] 2.16.840.1.386229.3.579.2. 593 2001 Unknown [id number] 2.16.840.1.702582.3.579.2. 593 2001 Unknown [id number] 2.16.840.1.365525.3.579.2. 593 2001 Unknown [id number] 2.16.840.1.032029.3.579.2. 593 2001 Unknown [id number] 2.16.840.1.196260.3.579.2. 593 2001 Unknown [id number] 2.16.840.1.850629.3.579.2. 593 2001 Unknown [id number] 2.16.840.1.500505.3.579.2. 593 2001 Unknown [id number] 2.16.840.1.200154.3.579.2. 1259 2001 Unknown [id number] 2.16.840.1.436512.3.579.2. 1259 2001 Unknown [id number] 2.16.840.1.777561.3.579.2. 1259 2001 Unknown [id number] 2.16.840.1.963830.3.579.2. 1259 2001 Unknown [id number] 2.16.840.1.308206.3.579.2. 1259 2001 Unknown [id number] 2.16.840.1.182142.3.579.2. 1259 2001 Unknown [id number] 2.16.840.1.625563.3.579.2. 1259 2001 Unknown [id number] 2.16.840.1.087745.3.579.2. 1258 2001 Unknown [id number]. 1259 2001 Unknown [id number] [id number]. 1258 2001 Unknown [id number] 2.16.840.1.252008.3.579.2. 9 2001 Unknown [id number] 2.16.840.1.587823.3.579.2. 1258 2001 Unknown [id number] 2.16.840.1.772523.3.579.2. 1258 2001 Unknown [id number] 2.16.840.1.787346.3.579.2. 1258 2001 Unknown [id number] 2.16.840.1.178574.3.579.2. 1286 2001 Unknown [id number] 2.16.840.1.706087.3.579.2. 1285 2001 Unknown [id number] 2.16.840.1.246368.3.579.2. 1286 1958 Self-pay 1959 Unknown [id number] 1959 Unknown [id number] Unknown [id number] [id number]. 593 Unknown [id number] [id number]. 531 Social History Date Type Detail Facility Start: 03-06-2019 End: 10-13-2023 Sex Assigned At [place] Other Start: 2000 Sex Assigned At Female [facility] Start: 10-13-2023 End: 05-10-2025 Tobacco smoking status NHIS Never smoked tobacco [facility] Start: 06-29-2024 End: 05-28-2025 Alcoholic beverage intake Current drinker of alcohol (finding) [facility] Start: 03-06-2019 End: 10-13-2023 History of Social function [facility] Start: 05-24-2024 [facility] Start: 2001 Sex assigned at Not on file N [facility] Tobacco smoking stat us AKIS Unknown if ever smoked [facility] Work Phone: Start: 04-29-2015 End: 08-11-2024 Sex Female (finding) [facility] Start: 05-10-2025 End: 05-31-2025 Alcoholic beverage intake Ex-drinker (finding) [facility] Equipment Procedure Code Equipment Code Equipment Origin al Text Equipment Identifier Dates 1 strip by In Vi tro route Daily Use in the morning prior to breakfast, 1 hour after each meal for a total of 4times daily. [id number] Start: 05-08-2025 End: 06-07-2025 1 each by In Vit ro route Daily Use to check FSBS four times daily [id number] Start: 05-08-2025 End: 06-07-2025 Clinical Notes 12-26-2022 to 06-05-2025 Telephone Encounter - Xenia London RD - 06/05/2025 11:08 AM EDTTelephone Encounter - Xenia London RD - 06/05/2025 11:08 AM Geri Martin MD - 06/04/2025 2:00 PM EDT Note Date & Type Note Facility 06-05-2025 Miscellaneous Notes Received blood sugars from 05/27/25-06/02/25 and food [...] if this continues to give in target sugars, however if fasting numbers continue to be elevated, then it is likely time to start medication to control fasting sugars. Encouraged to call or send in sugars towards the end of the week if numbers still high so she can get on the schedule to discuss medication with a provider. Otherwise will send in more numbers again next week. [facility] Telephone encounter Note Received blood sugars from 05/27/25-06/02/25 and food [...] if this continues to give in target sugars, however if fasting numbers continue to be elevated, then it is likely time to start medication to control fasting sugars. Encouraged to call or send in sugars towards the end of the week if numbers still high so she can get on the schedule to discuss medication with a provider. Otherwise will send in more numbers again next week. [facility] Work Phone: 06-04-2025 History of Presen t illness Narrative [...] and the other consultants, we search on [employer] and all the available care everywhere epic I did review all the imaging studies of the patient available on EMR, ordered by the primary care physician and the other internal consultant HABITS: Patient activity no restrictions, diet [...] a leading cause of morbidity and mortality. In fetuses at all [...] RECOMMENDATION: 1. Continue serial Doppler studies at [facility] office weekly 2. 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 Patient does have multiple ultrasound scheduled with us Thank you for allowing me to participate in Vimal Funes . If there any questions please do not hesitate to contact us. Sincerely, MANAS MARTIN MD Video Visit via Real-time Synchronous Audiovisual Provider Location: [facility] AT [address] [address] Patient Location: [facility] office Patient Location Books Binder: None Video Visit Consent Statement: I discussed [...] that there are some limitations compared to [id number] evaluations. We elected to proceed. documented in this encounter [facility] 05-28-2025 Miscellaneous Notes Called regarding blood sugar logs from 05/20/25-05/26/25 but received voicemail. Vimal had 4 elevated fasting blood sugars and 2 elevated blood sugars after breakfast. Most recent fasting blood sugars have improved and she had three in target. We did talk last week about changing her evening snack. Will send a MyChart message. documented in this encounter [facility] 05-28-2025 Telephone encounter Note Called regarding blood sugar logs from 05/20/25-05/26/25 but received voicemail. Vimal had 4 elevated fasting blood sugars and 2 elevated blood sugars after breakfast. Most recent fasting blood sugars have improved and she had three in target. We did talk last week about changing her evening snack. Will send a MyChart message. [employer] Work Phone: 05-28-2025 History of Presen t [...] Problems Diagnosis Date Noted induced hypertension, antepartum ([facility]) 05/28/2025 Gestational diabetes mellitus (GDM), antepartum ([facility]) 05/28/2025 Resolved Ambulatory Problems Diagnosis Date Noted No Resolved Ambulatory Problems Past Medical History: Diagnosis Date Anemia Gestational diabetes ([facility]) History of blood transfusion Lead poisoning Miscarriage ([facility]) Nonsmoker Post depression HISTORY PAST MEDICAL HISTORY SOCIAL HISTORY Past Medical History: Diagnosis Date Anemia Gestational diabetes ([facility]) History of blood transfusion Lead poisoning Miscarriage ([facility]) Nonsmoker Post depression /anxiety Social History Tobacco [...] nursing note reviewed. Exam conducted with a income tax return preparer present. Vitals: Estimated body mass index is 32.06 kg/m as calculated from the following: Height as of 01/06/23: 5' 3 . Weight as of this encounter: 181 lb. BP: 136/80 Patient's last menstrual period was 10/15/2024 (exact date). ASSESSMENT & PLAN ICD-10-CM 1. Third trimester ([facility]) Z34.93 POCT urinalysis dipstick manually resulted 2. 32 weeks gestation of ([facility]) Z3A.32 3. Gestational diabetes mellitus (GDM), antepartum, gestational diabetes method of control unspecified ([facility]) O24.419 4. induced hypertension, antepartum ([facility]) O13.9 Return OB: Patient presents today [...] Rodriguez DO documented in this encounter [facility] 05-22-2025 History of Presen t [...] History of blood transfusion Lead poisoning Miscarriage ([facility]) Nonsmoker Post depression HISTORY PAST MEDICAL HISTORY SOCIAL HISTORY Past Medical History: Diagnosis Date Anemia Gestational diabetes ([facility]) History of blood transfusion Lead poisoning Miscarriage ([facility]) Nonsmoker Post depression /anxiety Social History Tobacco [...] nursing note reviewed. Exam conducted with a income tax return preparer present. Vitals: Estimated body mass index is 31.49 kg/m as calculated from the following: Height as of 01/06/23: 5' 3 . Weight as of this encounter: 177 lb 12 oz. BP: (!) 138/92 Patient's last menstrual period was 10/15/2024 (exact date). ASSESSMENT & PLAN ICD-10-CM 1. Third trimester ([facility]) Z34.93 POCT urinalysis dipstick manually resulted 2. 31 weeks gestation of ([facility]) Z3A.31 Return OB: Patient presents today [...] Rodriguez DO documented in this encounter [facility] 05-21-2025 Miscellaneous Notes Called regarding [...] sugars next week. documented in this encounter [facility] 05-21-2025 Telephone encounter Note Called regarding blood [...] will send in blood sugars next week. [employer] [employer] Work Phone: 05-14-2025 History of Presen t [...] nursing note reviewed. Exam conducted with a income tax return preparer present. Vitals: Estimated body mass index is 31.35 kg/m as calculated from the following: Height as of 01/06/23: 5' 3 . Weight as of this encounter: 177 lb. BP: 140/90 Patient's last menstrual period was 10/15/2024 (exact date). ASSESSMENT & PLAN ICD-10-CM 1. Third trimester ([facility]) Z34.93 POCT urinalysis dipstick manually resulted 2. 30 weeks gestation of ([facility]) Z3A.30 POCT urinalysis dipstick manually resulted 3. induced hypertension, antepartum ([facility]) O13.9 Creatinine Protein, urine, 24 hour [...] Rodriguez DO documented in this encounter [facility] 05-13-2025 Group counseling note Patient: [...] Face to face time was 110 minutes. [facility]: 05-13-2025 Miscellaneous Notes Patient: Vimal [...] was 110 minutes. documented [facility]-07-2025 Telephone encounter Note Called pt to let her know that she did not pass her 3 hour glucose test and that I would be sending in supplies and referring her to diabetic education. [facility] 05-07-2025 Miscellaneous Notes Called pt to let her know that she did not pass her 3 hour glucose test and that I would be sending in supplies and referring her to diabetic education. documented in this encounter [facility] 04-30-2025 History of Presen [...] resulted 2. -induced hypertension in third trimester ([facility]) O13.3 US biophysical profile w non stress test US OB follow up transabdominal approach labetalol (Normodyne) 300 MG tablet 3. Gestational diabetes mellitus (GDM) in third trimester, gestational diabetes method of control unspecified ([facility]) O24.419 US biophysical [...] TRUE Argueta documented in this encounter [facility] 04-25-2025 History of Presen [...] ASSESSMENT & PLAN ICD-10-CM 1. Second trimester ([facility]) Z34.92 2. 27 weeks gestation of ([facility] [...] TRUE Argueta documented in this encounter [facility] 04-11-2025 History of Presen [...] Medical History: Diagnosis Date Anemia Gestational diabetes ([facility]) History of blood transfusion Lead poisoning Miscarriage ([facility]) Nonsmoker Post depression HISTORY PAST MEDICAL HISTORY SOCIAL HISTORY Past Medical History: Diagnosis Date Anemia Gestational diabetes ([facility]) History of blood transfusion Lead poisoning Miscarriage ([facility]) Nonsmoker Post depression /anxiety Social History Tobacco [...] TRUE Argueta documented in this encounter [facility] 03-14-2025 History of Presen [...] History of blood transfusion Lead poisoning Miscarriage ([facility]) Nonsmoker Post depression HISTORY PAST MEDICAL HISTORY SOCIAL HISTORY Past Medical History: Diagnosis Date Anemia Gestational diabetes ([facility]) History of blood transfusion Lead poisoning Miscarriage ([facility]) Nonsmoker Post depression /anxiety Social History [...] nursing note reviewed. Exam conducted with a income tax return preparer present. Vitals: Estimated body mass index is 29.23 kg/m as calculated from the following: Height as of 01/06/23: 5' 3 . Weight as of this encounter: 165 lb. BP: 112/76 Patient's last menstrual period was 10/15/2024 (exact date). ASSESSMENT & PLAN ICD-10-CM 1. Second trimester ([facility]) Z34.92 POCT urinalysis dipstick manually resulted 2. 21 weeks gestation of ([facility]) Z3A.21 Patient presents today for a routine obstetrics appointment. Patient is currently 21w3d with a Estimated Date of Delivery: 07/22/25. Patient has no complaints at this time and will return to clinic in 4 weeks. Documented by Diamond Borja LPN on behalf of: Jose Rodriguez DO documented in this encounter [facility] 02-20-2025 History of Presen [...] nursing note reviewed. Exam conducted with a income tax return preparer present. Vitals: Estimated body mass index is [...] TRUE Argueta documented in this encounter [facility] 01-14-2025 History of Presen [...] nursing note reviewed. Exam conducted with a income tax return preparer present. Vitals: Estimated body mass index is [...] or undercooked meat, and stay away from [facility]. Patient has been consulted regarding any [...] Rodriguez DO documented in this encounter [facility] 08-20-2024 History of Presen [...] having a D&C Hysteroscopy performed at [facility] with Dr. Rodriguez. Pathology results was reviewed with the patient in great detail and all restrictions have been lifted. Follow Up: Patient is to return to the office for annual exam unless needed otherwise. Documented by TRUE Argueta on behalf of: TRUE Argueta documented in this encounter [facility] 08-06-2024 History of Presen [...] nursing note reviewed. Exam conducted with a income tax return preparer present. Vitals: Estimated body mass index is [...] vaginal bleeding. Patient to discuss date with Assistant Chief Nursing Officer prior to leaving. Patient is able to obtain work note for the week and if longer is needed she will reach out to office. Documented by Diamond Borja LPN on behalf of: Jose Rodriguez DO documented in this encounter [facility] 06-29-2024 History of Presen [...] or undercooked meat, and stay away from [facility]. Patient has also been advised to [...] by: Whitney Peacock documented in this encounter [facility] 12-26-2022 Evaluation note Encounter [...] appointment to be seen soon as possible [facility] Other Evaluation noteNo assessment information available [facility] Work Phone: Evaluation note* Diagnosis Missed menses [...] gestation of ([facility]) documented in this encounter [facility]* Diagnosis Second trimester ([facility]) state, incidental 25 weeks gestation of ([facility]) Diabetes mellitus screening Screening for diabetes mellitus Elevated BP without diagnosis of hypertension documented in this encounter [facility]* Diagnosis Second trimester ([facility]) state, incidental 27 weeks gestation of ([facility]) induced hypertension, antepartum ([facility]) Transient hypertension of , antepartum documented in this encounter [facility] Healthcare[facility]* Diagnosis BP check Screening [...] of control unspecified [facility]* Diagnosis Third trimester ([facility]) state, [...] unspecified fetus- Primary [facility] Diagnosis Poor growth affecting [...] Health SystemInstructionsNot on filedocumented in this encounter [facility] Summary Purpose Family History No Family [...] and content) DATE CREATED AUTHOR 09/24/2021 [facility] DATE CREATED AUTHOR AUTHOR'S ORGANIZ ATION 12/07/2022 [facility] DATE CREATED AUTHOR AUTHOR'S ORGANIZ ATION 08/15/[address] [facility] DATE CREATED AUTHOR AUTHOR'S ORGANIZ ATION 05/29/[address] [facility] EPIC DATE CREATED AUTHOR AUTHOR'S ORGANIZ ATION 06/06/2025 [facility] DATE CREATED AUTHOR AUTHOR'S ORGANIZ ATION 06/06/2025 [facility] REASON FOR VISIT (unrecogniz ed section and [...] of control unspecified Jose Rodriguez DO [address] [place] [address] Phone: tel: fax: Maternal- Medicine at [facility] [address] [place] [address] Phone: tel: fax: Referral ID Status Reason Start Date Expiration Date Visits Requested Visits Authorized [id number] Pending Review Specialty Services Required 05/09/2025 05/09/2026 1 1 Care Teams (unrecognized sec tion and content) Team Status: Inactive Member Role Status Dates Jennifer Huston NP-C Attending Provider Active Music Orchestrator Relationship Specialty Start Date End Date Vaishali Zapata MD [address] [place] [address] PCP - General Family Medicine 02/04/23 Music Orchestrator Relationship Specialty Start Date End Date Vaishali Zapata MD [address] [place] [address] PCP - General Family Medicine 02/04/23 Team Status: Active Member Role Status Dates PHYSICIAN NO FAMILY Primary Care Provider Active Team Status: Inactive Member Role Status Dates PHYSICIAN NO FAMILY Primary Care Provider Active Start: August 10, 2024 End: August 10, 2024 Jose Rodriguez DO Attending Provider Active Start : August 10, 2024 End: August 10, 2024 Music Orchestrator Relationship Specialty Start Date End Date Unallocated, [place] [address] PCP - General Family Medicine 08/03/24 Music Orchestrator Relationship Specialty Start Date End Date UnallocatedArjun MD [address] [place] [address] PCP - General Family Medicine 08/03/24 Music Orchestrator Relationship Specialty Start Date End Date Unallocated, Arjun Vo MD [facility] [address] [facility] [place] [address] PCP - General Family Medicine 08/03/24 Music Orchestrator Relationship Specialty Start Date End Date Unallocated, Arjun oV MD [facility] [address] [facility] [place] [address] PCP - General Family Medicine 08/03/24 Music Orchestrator Relationship Specialty Start Date End Date Unallocated, Arjun Vo MD [facility] [address] [facility] [place] [address] PCP - General Family Medicine 08/03/24 Music Orchestrator Relationship Specialty Start Date End Date Unallocated, Arjun Vo MD [facility] [address] [place] [place] [address] PCP - General Family Medicine 08/03/24 Music Orchestrator Relationship Specialty Start Date End Date Unallocated, Arjun Vo MD [facility] [place] [address] PCP - General Family Medicine 08/03/24 Music Orchestrator Relationship Specialty Start Date End Date Unallocated, Arjun Vo MD [facility] [place] [address] PCP - General Family Medicine 08/03/24 Music Orchestrator Relationship Specialty Start Date End Date Unallocated, Arjun Vo MD [facility] [address] [facility] [place] [place] [address] PCP - General Family Medicine 08/03/24 Music Orchestrator Relationship Specialty Start Date End Date Unallocated, Arjun Vo MD [facility] [place] [address] PCP - General Family Medicine 08/03/24 Music Orchestrator Relationship Specialty Start Date End Date Unallocated, Arjun Vo MD [address] [place] [address] PCP - General Family Medicine 08/03/24 Music Orchestrator Relationship Specialty Start Date End Date Unallocated, Arjun Vo MD [address] [place] [address] PCP - General Family Medicine 08/03/24 Music Orchestrator Relationship Specialty Start Date End Date Unallocated, Arjun Vo MD [address] [place] [address] PCP - General Family Medicine 08/03/24 Music Orchestrator Relationship Specialty Start Date End Date Unallocated, Arjun Vo MD [address] [place] [address] PCP - General Family Medicine 08/03/24 Music Orchestrator Relationship Specialty Start Date End Date Unallocated, Arjun Vo MD [address] [place] [address] PCP - General Family Medicine 08/03/24 Goals [...] BE BASED ON THE PRIMARY CLINICAL RECORDS. [employer] [facility]. provides no warranty or guarantee of the accuracy or completeness of information in this document.
--- NOTE | 2025-06-08 11:00 | US_ITS ---
[place] [id number] Patient Name: VIMAL PIZANO MRN: [id number] date: 2000 Sex: F Assigned Patient Location: [facility] Current Patient Location: Accession/Order Number: [id number] Exam Date: 06/08/2025 11:01 Report Date: 06/08/2025 12:10 At the request of: COLLIN LEACH Procedure: US OB BPP w non-stress Ultrasound biophysical profile HISTORY: Gestational diabetes Adequate breathing movement, gross body movement, tone and amniotic fluid volume for total score of 8 out of 8. The amniotic fluid index is 10.3cm within normal limits. The heart rate 157 bpm. US/US OB BPP w non-stress IMPRESSION: Adequate ultrasound biophysical profile Impression dictated by: Shivam Knapp M.D. 06/08/2025 12:10 PM Dictation Location: [employer] Electronically authenticated by: [id number] Date: 06/08/2025 12:10
[2025-06-08 11:19] VITALS: BP 140/73; PULSE 74; TEMP 36.6
== END 2025-06-08 12:04 | disposition home or self-care (01) ==
LOC: US 10:57 → FBC 10:58
PROVIDERS: PCP Nurse Practitioner Family; Visit Provider Physician Assistant
DX: O13.3 Gestational [pregnancy-induced] hypertension without significant proteinuria, third trimester (principal); O24.419 Gestational diabetes mellitus in pregnancy, unspecified control; Z3A.33 33 weeks gestation of pregnancy
CPT/HCPCS: 76818

== ENCOUNTER 2025-06-12 16:03 | Outpatient (OUT) | payer BC, OTHER, SELFPAY ==
--- OUTSIDE RECORDS SUMMARY | 2025-06-04 12:41 | XMS_ITS | Encounter Summary ---
Author Organization [facility] Formerly [facility] tem Address [id number] [address] [place] [address] Care Team Providers Care Strategic Sourcing Manager Name Role Phone Unavailable Primary Care Provider Unavailabl e Reason for Visit * Diagnostic Imaging (Routine) - Pending Review Specialty Diagnoses / Procedures Referred By Ashly thomson Referred To Contact Maternal and Medicine Diagnoses Screening, , for anatomic survey Procedures US MFM with or without consult US MFM with or without consult Chris Martin MD [address] [facility] [address] [place] [address] Phone: tel: fax: Maternal- Medicine at [facility] [address] [place] [address] Phone: tel: fax: Referral ID Status Reason Start Date Expiration Date V isits Requested Visits Authorized [id number] Pending Review 04/11/2025 04/11/2026 1 1 Encounter Details Date Type Department Care Team (Latest Contact Info) Description 06/04/2025 12:41 PM EDT - 06/04/2025 11:59 PM EDT Hospital Encounter [facility] - Ultrasound [address] [place] [id number] Jose Rodriguez, DO [address] [place] [address] Dr [address]ué [place] [address] Screening, , for anatomic survey Discharge Disposition: Home Social History Tobacco Use Types Packs/Day Years [...] on file documented as of this encounter Medications at Time of Discharge labetaloL (NORMODYNE) 100 mg tablet Take 1 tablet (100 mg total) by mouth in the morning and 1 tablet (100 mg total) before bedtime. loratadine (CLARITIN) 10 mg tablet Take 1 tablet (10 mg total) by mouth in the morning. 115/iron/folic acid ( 19 ORAL) Take by mouth. progesterone (PROMETRIUM) 100 mg capsule Take 1 capsule (100 mg total) by mouth in the morning and at bedtime. documented as of this encounter Plan of Treatment Upcoming Encounters Date Type Department Care Team (Late st Contact Info) Description 06/18/2025 3:30 PM EDT Appointment [facility] - [facility] US Imaging [address] [place] [address] 06/24/2025 2:15 PM EDT Appointment Maternal Medicine [address] [place] [address] documented as of this encounter Procedures Procedure Name Priority Date/Time Associated Diagnosis Comments [facility] COMPREHENSIVE ANATOMIC SURVEY Routine 06/04/2025 3:06 PM EDT Screening, , for anatomic survey documented in this encounter Results * [facility] COMPREHENSIVE ANATOMIC SURVEY (06/04/2025 3:06 PM EDT) Anatomical Region Laterality Modality OB-CONTINUOUS DRIER OPERATOR Ultrasound 06/04/2025 1:03 PM EDT Narrative 06/04/2025 4:20 PM EDT NAME: JERICA CELIS : 2000 SEX: F Accession Number: [id number] ORDERING PHYSICIAN: CHRIS MARTIN REFERRING PHYSICIAN: JOSE RODRIGUEZ Coding ----- --------- Procedures 74696: Ultrasound, uterus, real time with image documentation, and maternal evaluation plus detailed anatomic examination, transabdominal approach;single or first gestation 21479: Doppler velocimetry, ; umbilical artery Indication ----- --------- Screening for Anatomic Survey, IUGR-Poor growth, Gestational diabetes, Gestational hypertension without significant proteinuria. History ----- --------- OB History 3. Para 1 T1A1 Current ----- --------- Cell free DNA low risk analysis Maternal Assessment ----- --------- Physical Exam Height 160 cm, 5 ft 3 in. Initial weight 80 kg, 176 lb. Initial BMI 31.18 kg/m Method ----- --------- Transabdominal ultrasound examination. View: Suboptimal view: limited by late gestational age. ----- --------- Espino . Number of fetuses: 1 Dating ----- --------- LMP on: 10/15/2024 GA by LMP 33 w + 1 d LYDIA by LMP: 07/22/2025 Previous Ultrasound on: 12/14/2024 Type of prior assessment: GA GA at prior assessment date 8 w + 3 d GA by previous U/S 33 w + 0 d LYDIA by previous Ultrasound: 07/23/2025 Ultrasound examination on: 06/04/2025 GA by U/S based upon: AC, BPD, Femur, HC GA by U/S 30 w + 0 d LYDIA by U/S: 08/13/2025 Assigned: based on the LMP, selected on 06/04/2025 Assigned GA (weeks days) 33 w + 1 d Assigned LYDIA: 07/22/2025 General Evaluation ----- --------- Cardiac activity Present. FHR 131 bpm. Presentation: breech Placenta: Placental site: posterior fundal, away from cervical os Umbilical cord: Cord vessels: 3 vessel cord. Insertion site: not examined Amniotic fluid: Amount of AF: normal amount. MVP 4.2 cm Biometry ----- --------- Standard BPD 74.0 mm 29w 5d <1% Hadlock OFD 100.2 mm 32w 3d 31% Khanh HC 280.1 mm 30w 5d <1% Hadlock Cerebellum tr 41.3 mm 32w 6d 22% Hill AC 261.7 mm 30w 2d 1% Hadlock Femur 55.6 mm 29w 2d <1% Hadlock Humerus 51.8 mm 30w 1d 3% Khanh HC / AC 1.07 EFW 1,487 g <1% Hadlock EFW (lb) 3 lb EFW (oz) 4 oz EFW by: Hadlock ([id number]-FL) Extended Tibia 49.0 mm 29w 3d <1% Khanh Foot 56.8 mm <1% Chitty Relocation Counselor 4.6 mm CM 6.2 mm 19% Nicolaides Head / Face / Neck Cephalic index 0.74 3% Nicolaides Nasal bone: present Extremities / Bony Struc FL / BPD 0.75 FL / HC 0.20 FL / AC 0.21 Other Structures FHR 131 bpm Anatomy ----- --------- The following structures appear normal: Head/Neck: Cranium. Lateral ventricles. Choroid plexus. Cavum septi pellucidi. Cerebellum. Cisterna magna. Parenchyma. Face: Lips. Nose. Nasal bone. Maxilla. Mandible. Orbits. Heart/Thorax: LVOT view. 3-ncwjso-urwbcnj view. Situs. Ductal arch view. Cardiac position. Cardiac axis. Cardiac size. Cardiac rhythm. Abdomen: Stomach. Kidneys. Bladder. Small bowel. Large bowel. Right renal artery. Left renal artery. Genitals. Extremities/Skeleton: Left upper arm. Left forearm. Right upper leg. Right lower leg. Left upper leg. Left lower leg. Left foot. The following structures could not be adequately visualized: Head / Neck Midline falx. Face Profile. Heart / Thorax 4-chamber view. 3-vessel view. Interventricular septum. Great vessels. Diaphragm. Spine: Cervical spine. Thoracic spine. The following structures could not be examined: Head / Neck Vermis. Neck. Heart / Thorax RVOT view. Aortic arch view. Bicaval view. Right lung. Left lung. Abdomen Abdom. wall. Cord insertion. Spine Lumbar spine. Sacral spine. Extremities / Right upper arm. Right forearm. Right hand. Left hand. Right foot. Skeleton Doppler ----- --------- Umbilical Artery: normal PI 0.97 68% Ebbing PS -42.52 cm/s TAmax -25.83 cm/s MD -13.88 cm/s S / D 2.68 55% Sherry Maternal Structures ----- --------- Uterus Visualized Cervix Suboptimal Right Ovary Visualized Size 3.6 cm x 1.7 cm x 2.1 cm. Vol 6.5 cm Left Ovary Visualized Size 2.8 cm x 1.9 cm x 1.6 cm. Vol 4.4 cm Cul de Sac Visualized Impression ----- --------- Single live intrauterine . 33w 1d. growth restriction with EFW measuring at the <1%. AC measures at the 1%. The femur is measuring less than the 3rd percentile. The femur to foot ratio = 1 which is within normal limits. The HC measures less than the 3rd percentile for the gestational age but reference biometric measurement within 2 SD of the mean (Kip and colleagues, 1984). Umbilical artery S/D ratio in normal range. Placentomegaly noted which measures 7.7 cm. Amniotic fluid MVP measures 4.2 cm. Recommendations ----- --------- Please see [facility] documentation from today. Subsequent follow up or other follow up as clinically determined by primary OB provider unless otherwise specified by [facility]. Results forwarded to ordering provider so they can follow up with the patient as necessary. Procedure Note Chris Martin MD - 06/04/2025 NAME: JERICA CELIS : 2000 SEX: F Accession Number: [id number] ORDERING PHYSICIAN: CHRIS MARTIN REFERRING PHYSICIAN: JOSE RODRIGUEZ Coding ----- --------- Procedures [id number]: Ultrasound, uterus, real time with imagedocumentation, and maternal evaluation plus detailed anatomic examination, transabdominalapproach;single or first gestation 73164: Doppler velocimetry, ; umbilical artery Indication ----- --------- Screening for Anatomic Survey, IUGR-Poor growth, Gestationaldiabetes, Gestational hypertension without significant proteinuria. History ----- --------- OB History 3. Para 1 T1A1 Current ----- --------- Cell free DNA low risk analysis Maternal Assessment ----- --------- Physical Exam Height 160 cm, 5 ft 3 in. Initial weight 80 kg, 176 lb.Initial BMI 31.18 kg/m Method ----- --------- Transabdominal ultrasound examination. View: Suboptimal view: limited bylate gestational age. ----- --------- Espino . Number of fetuses: 1 Dating ----- --------- LMP on: 10/15/2024 GA by LMP 33 w + 1 d LYDIA by LMP: 07/22/2025 Previous Ultrasound on: 12/14/2024 Type of prior assessment: GA GA at prior assessment date 8 w + 3 d GA by previous U/S 33 w + 0 d LYDIA by previous Ultrasound: 07/23/2025 Ultrasound examination on: 06/04/2025 GA by U/S based upon: AC, BPD, Femur, HC GA by U/S 30 w + 0 d LYDIA by U/S: 08/13/2025 Assigned: based on the LMP, selected on 06/04/2025 Assigned GA (weeks days) 33 w + 1 d Assigned LYDIA: 07/22/2025 General Evaluation ----- --------- Cardiac activity Present. FHR 131 bpm. Presentation: breech Placenta: Placental site: posterior fundal, away from cervical os Umbilical cord: Cord vessels: 3 vessel cord. Insertion site: notexamined Amniotic fluid: Amount of AF: normal amount. MVP 4.2 cm Biometry ----- --------- Standard BPD 74.0 mm 29w 5d <1% Hadlock OFD 100.2 mm 32w 3d 31% Khanh HC 280.1 mm 30w 5d <1% Hadlock Cerebellum tr 41.3 mm 32w 6d 22% Hill AC 261.7 mm 30w 2d 1% Hadlock Femur 55.6 mm 29w 2d <1% Hadlock Humerus 51.8 mm 30w 1d 3% Khanh HC / AC 1.07 EFW 1,487 g <1% Hadlock EFW (lb) 3 lb EFW (oz) 4 oz EFW by: Hadlock ([id number]-FL) Extended Tibia 49.0 mm 29w 3d <1% Khanh Foot 56.8 mm <1% Chitty Relocation Counselor 4.6 mm CM 6.2 mm 19% Nicolaides Head / Face / Neck Cephalic index 0.74 3% Nicolaides Nasal bone: present Extremities / Bony Struc FL / BPD 0.75 FL / HC 0.20 FL / AC 0.21 Other Structures FHR 131 bpm Anatomy ----- --------- The following structures appear normal: Head/Neck: Cranium. Lateral ventricles. Choroid plexus. Cavum septipellucidi. Cerebellum. Cisterna magna. Parenchyma. Face: Lips. Nose. Nasal bone. Maxilla. Mandible. Orbits. Heart/Thorax: LVOT view. 0-dqsbmn-rxzbxyf view. Situs. Ductal arch view.Cardiac position. Cardiac axis. Cardiac size. Cardiac rhythm. Abdomen: Stomach. Kidneys. Bladder. Small bowel. Large bowel. Right renalartery. Left renal artery. Genitals. Extremities/Skeleton: Left upper arm. Left forearm. Right upper leg. Rightlower leg. Left upper leg. Left lower leg. Left foot. The following structures could not be adequately visualized: Head / Neck Midline falx. Face Profile. Heart / Thorax 4-chamber view. 3-vessel view. Interventricular septum.Great vessels. Diaphragm. Spine: Cervical spine. Thoracic spine. The following structures could not be examined: Head / Neck Vermis. Neck. Heart / Thorax RVOT view. Aortic arch view. Bicaval view. Right lung. Left lung. Abdomen Abdom. wall. Cord insertion. Spine Lumbar spine. Sacral spine. Extremities / Right upper arm. Right forearm. Right hand. Left hand.Right foot. Skeleton Doppler ----- --------- Umbilical Artery: normal PI 0.97 68% Ebbing PS -42.52 cm/s TAmax -25.83 cm/s MD -13.88 cm/s S / D 2.68 55% Sherry Maternal Structures ----- --------- Uterus Visualized Cervix Suboptimal Right Ovary Visualized Size 3.6 cm x 1.7 cm x 2.1 cm. Vol 6.5 cm Left Ovary Visualized Size 2.8 cm x 1.9 cm x 1.6 cm. Vol 4.4 cm Cul de Sac Visualized Impression ----- --------- Single live intrauterine . 33w 1d. growth restriction with EFW measuring at the <1%. AC measuresat the 1%. The femur is measuring less than the 3rd percentile. The femur to footratio = 1 which is within normal limits. The HC measures less than the 3rd percentile for the gestational agebut reference biometric measurement within 2 SD of the mean (Kip and colleagues, 1984). Umbilical artery S/D ratio in normal range. Placentomegaly noted which measures 7.7 cm. Amniotic fluid MVP measures 4.2 cm. Recommendations ----- --------- Please see [facility] documentation from today. Subsequent follow up or other follow up as clinically determined byprimary OB provider unless otherwise specified by [facility]. Results forwarded to ordering provider so they can follow up with thepatient as necessary. us Chris Martin MD [facility] ORDERABLES Final Resul t documented in this encounter Visit Diagnoses Diagnosis Screening, , for anatomic survey Encounter for anatomic survey documented in this encounter
--- OUTSIDE RECORDS SUMMARY | 2025-06-04 14:00 | XMS_ITS | Encounter Summary ---
Author Organization [facility] tem Address [id number] [address] [place] [address] Care Team Providers Care Equine Internship Name Role Phone Unavailable Primary Care Provider Unavailabl e Encounter Details Date Type Department Care Team (Late st Contact Info) Description 06/04/2025 2:00 PM EDT Telemedicine Maternal- Medicine at [facility] [address] [place] [phone] Manas Martin MD [address] [facility], [address] [place] [address] Poor growth affecting management of mother in third trimester, single or unspecified fetus (Primary Dx) Social History Tobacco Use Types Packs/Day Years [...] as of this encounter Progress Notes * Manas Martin MD - 06/04/2025 2:00 PM EDT REASON FOR TELEMEDICINE VIDEO CONSULTATION: growth restriction HISTORY OF PRESENT ILLNESS: Amber Funes is a pleasant 25 y.o. G 3 P1 011. at 33w1d due on Estimated Date of Delivery: 07/22/25 . Patient was seen today due to the following 1. growth restriction with estimated weight at the 1st percentile with normal Doppler studies. 2. Hypertension currently on labetalol 300 mg p.o. q.12 hours. Patient was started on labetalol during 3. Maternal gestational diabetes A1 currently managed by diet and exercise. Currently the patient has no complaints. The patient denies nausea, vomiting, abdominal pain, vaginal bleeding, SOB or chest pain. Patient's PMH/PSH,SH,PSYCH Hx, MEDs, ALLERGIES, and ROS were all reviewed and updated in the appropriate sections. Patient Active Problem List Diagnosis Poor growth affecting management of mother in third trimester Past Medical History: Diagnosis Date Anemia Anxiety Gestational diabetes History of blood transfusion Lead poisoning PAST OBSTETRICAL HISTORY: OB History 3 Para 1 Term 1 AB 1 Living 1 SAB 1 IAB Ectopic Multiple Live Births 1 SURGICAL HISTORY: Past Surgical History: Procedure Laterality Date ADENOIDECTOMY DILATION AND CURETTAGE OF UTERUS INNER EAR SURGERY MYRINGOPLASTY W/ FAT GRAFT ALLERGIES: No Known Allergies CURRENT MEDICATIONS: Current Outpatient Medications: labetaloL (NORMODYNE) 100 mg tablet, Take 1 tablet (100 mg total) by mouth in the morning and 1 tablet (100 mg total) before bedtime., Disp: , Rfl: loratadine (CLARITIN) 10 mg tablet, Take 1 tablet (10 mg total) by mouth in the morning., Disp: , Rfl: 115/iron/folic acid ( 19 ORAL), Take by mouth., Disp: , Rfl: progesterone (PROMETRIUM) 100 mg capsule, Take 1 capsule (100 mg total) by mouth in the morning andat bedtime., Disp: , Rfl: FAMILY/GENETIC HISTORY: No family history of VTE, cardiac defects and mental retardation . RECENT HOSPITALIZATION: none I did review all the labs results available in addition to labs which were ordered by the primary care physician, and the other consultants, we search on [employer] and all the available care everywhere epic I did review all the imaging studies of the patient available on EMR, ordered by the primary care physician and the other clinical application consultant HABITS: Patient activity no restrictions, diet no restrictions REVIEW OF SYSTEM: Head and Neck: Negative for any dizziness and headaches. Cardiovascular and Respiratory System: Denies any chest pain, shortness of breath, and coughing. Abdominal and System: Denies any abdominal pain, nausea, vomiting, vaginal bleeding, and vaginal discharge MEDICAL DECISION MAKING DISCUSSION: We started our discussion with pathophysiology of growth restriction (FGR) that can result from a variety of maternal, , and placental conditions.1 Although the primary underlying mechanisms for FGR are varied, they often share the same final common pathway of suboptimal nutrition and uteroplacental perfusion. Chromosomal disorders and congenital malformations are responsible for approximately 20% of FGR cases. Suboptimal perfusion of the maternal placental circulation is the most common cause of FGR and accounts for 25e30% of all cases. FGR occurs in up to 10% of pregnancies and is a leading cause of morbidity and mortality. Infetuses at all gestational ages with weights or abdominal circumference below the 10th percentile, the stillbirth rate is approximately 1.5%, which is twice the rate in fetuses with normal growth. Further discussed the frame work of managing fetus with growth restriction. This include testing in the form of nonstress tests DANYA and Doppler studies that will occur serially until the patient is delivered. Timing of delivery is contingent upon testing Doppler studies and amniotic fluid index and can change according to the test results. RECOMMENDATION: 1. Continue serial Doppler studies at [facility] office weekly 2. Continue testing form of twice weekly NST and weekly DANYA at her OB office. 3. At 37-0 weeks gestation based on growth restriction with normal Doppler studies. 4. Please obtain baseline 24 urine protein excretion of protein creatinine ratio along with a comprehensive metabolic profile at her OB office. 5. Low threshold to be used for evaluation admission to the hospital for preeclampsia 6. Vaginal delivery is to be anticipated with C section reserve for routine obstetrical indications DISPOSITION: At this point the patient is in complete care of her store sales leader. Patient does have multiple ultrasound scheduled with us Thank you for allowing me to participate in Amber Funes . If there any questions please do nothesitate to contact us. Sincerely, MANAS MARTIN MD Video Visit via Real-time Synchronous Audiovisual Provider Location: [facility]- MEDICINE AT [address] [address] Patient Location: Other [facility] office Patient Location Dresser Tender: None Video Visit Consent Statement: I discussed risks, benefits, and alternatives of a real-time synchronous audiovisual consultation with the patient (and any accompanying persons) including the risks that the patient's personal health details and medical records will be discussed over real-time, synchronous, interactive video/audio/telecommunication technology, the visit will not be recorded withoutthe express consent of both the provider and the patient, and that there are some limitations compared to smdr-lw-dnbo evaluations. We elected to proceed. documented in this encounter Plan of Treatment Upcoming Encounters Date Type Department Care Team (Late st Contact Info) Description 06/18/2025 3:30 PM EDT Appointment [facility] US Imaging [address] [place] [address] 06/24/2025 2:15 PM EDT Appointment Maternal Medicine [place] [address] [place] [address] documented as of this encounter Visit Diagnoses Diagnosis Poor growth affecting management of mother in third trimester, single or unspecified fetus- Primary documented in this encounter
--- OUTSIDE RECORDS SUMMARY | 2025-06-11 07:48 | XMS_ITS | Encounter Summary ---
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 Gager Apprentice Name Role Phone Unavailable Primary Care Provider Unavailabl e Reason for Referral * Diagnostic Imaging (Routine) - Pending Review Specialty Diagnoses / Procedures Referred By Ashly thomson Referred To Contact Maternal and Medicine Diagnoses Poor growth affecting management of mother in third trimester, single or unspecified fetus Gestational diabetes mellitus (GDM) in third trimester, gestational diabetes method of control unspecified Procedures US [facility] with or without consult Chris Martin MD [address], [address] [place] [address] Phone: tel: fax: Maternal- Medicine at [place] [address] [place] [address] Phone: tel: fax: Referral ID Status Reason Start Date Expiration Date V isits Requested Visits Authorized [id number] Pending Review 06/04/2025 06/04/2026 1 1 Reason [...] consult Chris Martin MD [address], [address] [place] [address] Phone: tel: fax: Maternal- Medicine at [facility] [address] [place] [address] Phone: tel: fax: Referral ID Status Reason Start Date Expiration Date V isits Requested Visits Authorized [id number] Pending Review 06/04/2025 06/04/2026 1 1 Encounter Details Date Type Department Care Team (Latest Contact Info) Description 06/11/2025 7:48 AM EDT - 06/11/2025 11:59 PM EDT Hospital Encounter [facility] - [facility] US Imaging [address] [place] [address] Poor growth affecting management of [...] Info) Description 06/18/2025 3:30 PM EDT Appointment [facility] - [facility] US Imaging [address] [place] [address] 06/24/2025 2:15 PM EDT Appointment Maternal Medicine [place] [address] [facility] [address] [place] [address] documented as of this encounter [...] 8:39 AM EDT) Anatomical Region Laterality Modality OB-SENIOR DIRECTOR OF GLOBAL COMMERCIAL TECHNOLOGY SOLUTIONS Ultrasound 06/11/2025 8:10 AM EDT Narrative 06/11/2025 10:28 AM EDT NAME: JERICA CELIS : 2000 SEX: F Accession Number: [id number] ORDERING PHYSICIAN: CHRIS MARTIN REFERRING PHYSICIAN: MACKENZIE SANDERSON Coding ----- --------- Procedures 27980: Limited OB / DANYA, 1 or More Fetuses 59062: Doppler velocimetry, ; umbilical artery Indication ----- [...] today's exam. Recommendations ----- --------- Please see [facility] recommendations from prior clinical and/or ultrasound report documentation. The patient is scheduled for weekly Dopplers. The patient is scheduled in two weeks for growth ultrasound and Dopplers. Continue testing as previously recommended. Subsequent follow up or other follow up as clinically determined by primary OB provider unless otherwise specified by [facility]. Results forwarded to ordering provider so they can follow up with the patient as necessary. Procedure Note Maria Luisa Patel MD - 06/11/2025 NAME: JERICA CELIS : 2000 SEX: F Accession Number: [id number] ORDERING PHYSICIAN: CHRIS MARTIN REFERRING PHYSICIAN: MACKENZIE SANDERSON Coding ----- --------- Procedures 90589: Limited OB / DANYA, 1 or More Fetuses 19283: Doppler velocimetry, ; umbilical artery Indication ----- [...] today's exam. Recommendations ----- --------- Please see [facility] recommendations from prior clinical and/or ultrasoundreport [...] with thepatient as necessary. Chris Martin MD [facility] ORDERABLES Final Resul t documented in this encounter Visit Diagnoses Diagnosis Poor growth affecting management of mother in third trimester, single or unspecified fetus Gestational diabetes mellitus (GDM) in third trimester, gestational diabetes method of control unspecified documented in this encounter
--- OUTSIDE RECORDS SUMMARY | 2025-06-12 15:00 | XMS_ITS | Encounter Summary ---
Author Organization [facility] Address [address] [place] [address] Care Team Providers Care Box Order Person Name Role Phone Unallocated, Noms Provider Primary Care Provi krissy Reason for Visit * Reason Comments Routine Visit Encounter Details Date Type Department Care Team (Late st Contact Info) Description 06/12/2025 3:00 PM EDT Routine ARJUN [place] OBCHICHO [address] [facility] [place] [address] Rossana Ramos PA [address] [facility] [address] [place], [facility]11 Third trimester ([facility]); 34 weeks gestation of ([facility]) Social History Tobacco Use Types Packs/Day Years [...] 12:00 PM EDT documented in this encounter Plan of Treatment Upcoming Encounters Date Type Department Care Team (Late st Contact Info) Description 06/19/2025 2:30 PM EDT Routine [facility] [address] [facility] [address] Jose Rodriguez DO [address] [place] [address] Dr [place] [address] documented as of this encounter Procedures Procedure Name Priority Date/Time Associated Diagnosis Comments POCT URINALYSIS DIPSTICK Routine 06/12/2025 3:32 PM EDT Third trimester ([facility]) 34 weeks gestation of ([facility]) documented in this encounter Results * (ABNORMAL) [...] this encounter Visit Diagnoses Diagnosis Third trimester ([facility]) state, incidental 34 weeks gestation of ([facility]) documented in this encounter Care Teams Box Order Person Relationship Specialty Start Date End Date Unallocated, Noms Provider, [address] [place] [address] PCP - General Family Medicine 08/03/24 documented as of this encounter
--- OUTSIDE RECORDS SUMMARY | 2025-06-12 16:05 | XMS_ITS | Encounter Summary ---
Author Organization [facility] tem Address [id number] [address] [place] [address] Care Team Providers Care Bicycle Repairer Name Role Phone Unavailable Primary Care Provider [...] Info) Description 06/18/2025 3:30 PM EDT Appointment [facility] US Imaging [address] [place] [address] 06/24/2025 2:15 PM EDT Appointment Maternal Medicine [place] [address] [place] [address] documented as of this encounter Visit Diagnoses Not on filedocumented in this encounter
--- OUTSIDE RECORDS SUMMARY | 2025-06-12 16:06 | XMS_ITS | Encounter Summary ---
Author Organization [facility] Address [address] [place] [address] Care Team Providers Care Concrete Mixing Plant Superintendent Name Role Phone Unallocated, Noms Provider Primary Care Provi krissy Encounter Details Date Type Department Care Team (Late Contact Info) Description 03/28/2025 Abstract ARJUN PANG [facility] [place] [address] Jose Rodriguez DO [address] [place], [facility]11 Social [...] Department Care Team (Late Contact Info) Description 06/19/2025 2:30 PM EDT Routine NOMMay PANG [address] [place] [address] Jose Rodriguez DO [address] [facility] [address] [place] [place] [address] documented as of this encounter Visit Diagnoses Not on filedocumented in this encounter Care Teams Concrete Mixing Plant Superintendent Relationship Specialty Start Date End Date Unallocated, Noms Provider, [place] [address] PCP - General Family Medicine 08/03/24 documented as of this encounter
--- OUTSIDE RECORDS SUMMARY | 2025-06-12 16:06 | XMS_ITS | Encounter Summary ---
Author Organization [facility] Address [address] [place] [address] Care Team Providers Care Gripper Installer Name Role Phone Unallocated, Noms Provider Primary Care Provi krissy Encounter Details Date Type Department Care Team (Late st Contact Info) Description 05/07/2025 Results Follow-Up ARJUN [place] OBGYKeegan [address] [place] [address] Glenna Butler LPN [address] [place] [address] ALL CBC WITH AUTO DIFF, [...] Info) Description 06/19/2025 2:30 PM EDT Routine ARJUN [place] OBGYN [address] [place] [place] [address] Jose Rodriguez DO [address] [place] [address] documented as of this encounter Visit Diagnoses Not on filedocumented in this encounter Care Teams Gripper Installer Relationship Specialty Start Date End Date Unallocated, Arjun Vo MD [address] [place] [address] PCP - General Family Medicine 08/03/24 documented as of this encounter
--- OUTSIDE RECORDS SUMMARY | 2025-06-12 16:06 | XMS_ITS | Clinical Summary ---
Author Organization [facility] [employer] [facility] tem Address [id number] [address] [place] [address] Care Team Providers Care Lab Tech Name Role Phone Unavailable Primary Care Provider [...] Encounters Date Type Department Care Team Description 06/11/2025 7:48 AM EDT - 06/11/2025 11:59 PM EDT Hospital Encounter [facility] US Imaging [address] [place] [phone] Poor growth affecting management of mother in third trimester, single or unspecified fetus; Gestational diabetes mellitus (GDM) in third trimester, gestational diabetes method of control unspecified Discharge Disposition: Home 06/11/2025 Travel 06/09/2025 Travel 06/05/2025 Telephone Maternal- Medicine at [facility] [address] [place] [address] 06/04/2025 2:00 PM EDT Telemedicine Maternal- Medicine at [facility] [address] [facility] [place] [address] Chris Martin MD Poor growth affecting management of mother in third trimester, single or unspecified fetus (Primary Dx) 06/04/2025 12:41 PM EDT - 06/04/2025 11:59 PM EDT Hospital Encounter [facility] - Ultrasound [address] [place] [address] Mackenzie Rodriguez, Screening, , for anatomic survey Discharge Disposition: Home 06/04/2025 Orders Only Maternal- Medicine at [place] [address] [place] [address] Marii Yoo RN Poor growth affecting management of mother in third trimester, single or unspecified fetus (Primary Dx); Gestational diabetes mellitus (GDM) in third trimester, gestational diabetes method of control unspecified 06/04/2025 Travel 05/31/2025 Orders Only Maternal- Medicine at [place] [address] [place] [address] Ref Prov, Not In System 05/31/2025 Abstract Maternal- Medicine at [address] [address] External, Scanning Provider 05/28/2025 Telephone Maternal- Medicine at [facility] [address] [place] [address] Chante Muse, ILEANA 05/21/2025 Telephone Maternal- Medicine at [place] [address] [place] [address] Chante Muse, ILEANA 05/13/2025 1:30 PM EDT Support Visit Maternal- Medicine at [facility] [address] [place] [phone] Marjorie Rico RN Xenia Rayo, AELC Gestational diabetes mellitus (GDM) in third trimester, gestational diabetes method of control unspecified 05/13/2025 Travel 05/10/2025 Abstract Maternal- Medicine at [facility] [address] [place] [address] External, Scanning Provider from Last 3 Months [...] Info) Description 06/18/2025 3:30 PM EDT Appointment [facility] US Imaging [address] [place] [phone] 06/24/2025 2:15 PM EDT Appointment Maternal Medicine [place] [address] [place] [address] Health Maintenance Due Date Last Done Comments Chlamydia Screening 2001 Depression Screening 2013 Tobacco Screening 2013 Adult BMI Screening 2019 DTaP,Tdap and Td Vaccines (7 - Td or Tdap) 05/01/2024 05/01/2014, 06/01/2006, 05/19/2005, Additional history exists Influenza Vaccine 05/27/2025 08/28/2003, 07/26/2003 Pap Smear 02/21/2028 02/20/2025 Medical Devices Not on file Procedures Procedure Name Priority Date/Time Associated Diagnosis Comments US M LMTD OB, 1 OR MORE FETUS Routine 06/11/2025 8:39 AM EDT Poor growth affecting management of mother in third trimester, single or unspecified fetus Gestational diabetes mellitus (GDM) in third trimester, gestational diabetes method of control unspecified [facility] COMPREHENSIVE ANATOMIC SURVEY Routine 06/04/2025 3:06 PM [...] from Last 3 Months Results * US [facility] LMTD OB, 1 OR MORE FETUS (06/11/2025 8:39 AM EDT) Only the most recent of2 resultswithin the time period is included. Anatomical Region Laterality Modality OB-[facility] Ultrasound 06/11/2025 8:10 AM EDT Narrative 06/11/2025 10:28 AM EDT NAME: JERICA CELIS : 2000 SEX: F Accession Number: [id number] ORDERING PHYSICIAN: CHRIS MARTIN REFERRING PHYSICIAN: MACKENZIE RODRIGUEZ Coding ----- --------- Procedures 31878: Limited OB / DANYA, 1 or More Fetuses 80636: Doppler velocimetry, ; umbilical artery Indication ----- [...] today's exam. Recommendations ----- --------- Please see [facility] recommendations from prior clinical and/or ultrasound report documentation. The patient is scheduled for weekly Dopplers. The patient is scheduled in two weeks for growth ultrasound and Dopplers. Continue testing as previously recommended. Subsequent follow up or other follow up as clinically determined by primary OB provider unless otherwise specified by [facility]. Results forwarded to ordering provider so they can follow up with the patient as necessary. Procedure Note Maria Luisa Patel MD - 06/11/2025 NAME: JERICA CELIS : 2000 SEX: F Accession Number: [id number] ORDERING PHYSICIAN: CHRIS MARTIN REFERRING PHYSICIAN: MACKENZIE RODRIGUEZ Coding ----- --------- Procedures [id number]: Limited OB / DANYA, 1 or More Fetuses 43218: Doppler velocimetry, ; umbilical artery Indication ----- [...] today's exam. Recommendations ----- --------- Please see [facility] recommendations from prior clinical and/or [...] thepatient as necessary. us Chris Martin MD G US ORDERABLES Final Resul t * Glucose random or fasting- POCT (05/13/2025) External Glucose Fasting Or Random (Fbs) 80 MANUALLY TRANSCRIBED RESULTS Blood Venous blood / Unknown 05/13/2025 us Wendy Miranda MD LAB BLOOD ORDERABLES Final Resul t Performing Organization Address [facility] de Phone Number MANUALLY TRANSCRIBED RESULTS * 2nd hr Glucose Tolerance 100 gm load (05/04/2025) Glucose Tolerance Test 2 Hour 186 MANUALLY TRANSCRIBED RESULTS Blood Venous blood / Unknown us Not In System Ref Prov LAB BLOOD ORDERABLES Kayli l Result Performing Organization Address [facility] Co de Phone Number MANUALLY TRANSCRIBED RESULTS * Glucose tolerance, 1 hour (05/04/2025) Glucose Tolerance Test 1 Hour 234 MANUALLY TRANSCRIBED RESULTS Blood Venous blood / Unknown us Not In System Ref Prov LAB BLOOD ORDERABLES Kayli l Result Performing Organization Address [facility]/ZIP Co de Phone Number MANUALLY [...] l Result Performing Organization Address City/[facility] Co de Phone Number MANUALLY TRANSCRIBED RESULTS * Glucose 1h post 50g load (04/27/2025) Glucose, 1 hr PP 50GM dose 171 MANUALLY TRANSCRIBED RESULTS Blood Venous blood / Unknown us Not In System Ref Prov LAB BLOOD ORDERABLES Kayli l Result Performing Organization Address City/[facility] Co de Phone Number MANUALLY TRANSCRIBED RESULTS from Last 3 Months Insurance [facility] [place] [employer]
--- OUTSIDE RECORDS SUMMARY | 2025-06-12 16:06 | XMS_ITS | Encounter Summary ---
Author Organization [facility] Address [address] [place] [address] Care Team Providers Care Patent Counsel Name Role Phone Unallocated, Noms Provider Primary Care Provi krissy Encounter Details Date Type Department Care Team (Late st Contact Info) Description 03/11/2025 Results Follow-Up [facility] [place] [facility] [address] [facility] [address] [place] [address] Glenna Butler LPN [address] [place] [address] US OB ANATOMY Social History [...] Description 06/19/2025 2:30 PM EDT Routine [facility] [place] [facility] [address] [facility] [place] [phone] Jose Rodriguez DO [address] [place] [address] documented as of this encounter Visit Diagnoses Not on filedocumented in this encounter Care Teams Patent Counsel Relationship Specialty Start Date End Date Unallocated, Noms Gilda, [address] [place] [address] PCP - General Family Medicine 08/03/24 documented as of this encounter
--- OUTSIDE RECORDS SUMMARY | 2025-06-12 16:06 | XMS_ITS | Encounter Summary ---
Author Organization [facility] tem Address [id number] [address] [place] [address] Care Team Providers Care Pro Shop Attendant Name Role Phone Unavailable Primary Care Provider Unavailabl e Encounter Details Date Type Department Care Team ([facility] st Contact Info) Description 06/05/2025 Telephone Maternal- Medicine at [facility] [address] [facility] [place] [phone] Xenia Rayo, ALEC [address] [facility], [address] [place], [place] [id number] Social History Tobacco Use Types Packs/Day Years [...] 06/18/2025 3:30 PM EDT Appointment [facility] US Imaging [address] [place] [address] 06/24/2025 2:15 PM EDT Appointment Maternal Medicine Bob White [address] [facility] [place] [address] documented as of this encounter Visit Diagnoses Not on filedocumented in this encounter
--- OUTSIDE RECORDS SUMMARY | 2025-06-12 16:06 | XMS_ITS | Encounter Summary ---
Author Organization [facility] Address [address] [place] [address] Care Team Providers Care Supervisor Asphalt Paving Name Role Phone Vaishali Zapata MD Primary Care Provider Bipin cheng Unallocated, Noms Provider Primary Care Provi krissy Encounter Details Date Type Department Care Team (Late st Contact Info) Description 06/28/2024 Abstract ARJUN PANG [address] [place] [address] Jose Rodriguez DO [address] [place], [place] [address] Social History Tobacco Use Types Packs/Day Years [...] Description 06/19/2025 2:30 PM EDT Routine ARJUN PANG [address] [place] [address] Jose Rodriguez DO [address] [place], [facility] documented as of this encounter Visit Diagnoses Not on filedocumented in this encounter Care Teams Supervisor Asphalt Paving Relationship Specialty Start Date End Date Vaishali Zapata MD [address] [place] [address] PCP - General Family Medicine 02/04/23 08/02/24 Unallocated, Noms Provider, [address] [place] [address] PCP - General Family Medicine 08/03/24 documented as of this encounter
--- OUTSIDE RECORDS SUMMARY | 2025-06-12 16:06 | XMS_ITS | Encounter Summary ---
Author Organization [facility] Address [address] [place] [address] Care Team Providers Care Framing Inspector Name Role Phone Unallocated, Noms Provider Primary Care Provi krissy Encounter Details Date Type Department Care Team (Late st Contact Info) Description 08/10/2024 Clinisync Result Encounter [facility] External Department Unsolicited Mackenzie Rodriguez DO [address] [place], [place] [id number] Social History Tobacco Use Types Packs/Day Years [...] Routine [facility] [address] [place] [phone] Mackenzie Rodriguez DO [address] [place] [address] documented as of this encounter Procedures Procedure Name Priority Date/Time Associated Diagnosis Comments US OB TRANSVAGINAL 08/10/2024 8: 44 AM EST documented in this encounter Results * US OB TRANSVAGINAL (08/10/2024 8:44 AM EST) Anatomical Region Laterality Modality Other 08/10/2024 8:44 AM EST Narrative 08/10/2024 8:47 [place] [address] Ultrasound Report Signed Patient: AMBER PIZANO MR#: [id number] : 2000 Acct:[id number] Age/Sex: 24 / F ADM Date: 08/10/24 Loc: SURGOUT Attending Dr: Mackenzie Rodriguez D.O. Ordering Physician: Mackenzie Rodriguez D.O. Date of Service: 08/10/24 Procedure(s): US OB transvaginal Accession Number(s): [id number] cc: LUIS SEE ; Mackenzie Rodriguez D.O. The [place] [id number] Patient Name: AMBER PIZANO MRN: [id number] date: 2000 Sex: F Assigned Patient Location: [facility] Current Patient Location: [facility] Accession/Order Number: [id number] Exam Date: 08/10/2024 08:10 Report Date: 08/10/2024 [...] M.D. Signed By: 08/10/24846 DD/ 3 TD/TT: Contact Manager: Procedure Note Radiology, Radiologist, MD - 08/10/2024 [place] [address] Ultrasound Report Signed Patient: AMBER PIZANO MMR#: [id number] : 2000Acct:[id number] Age/Sex: 24 / FADM Date: 08/10/24 Loc: SURGOUT Attending Dr: Mackenzie Rodriguez D.O. Ordering Physician: Mackenzie Rodriguez D.O. Date of Service: 08/10/24 Procedure(s): US OB transvaginal Accession Number(s): [id number] cc: LUIS SEE ; Mackenzie Rodriguez D.O. The [place] [id number] Patient Name: AMBER PIZANO MRN: [id number] date: 2000 Sex: F Assigned Patient Location: [facility] Current Patient Location: [facility] Accession/Order Number: [id number] Exam Date: 08/10/2024 08:10 Report Date: 08/10/2024 [...] Lavon Herrera M.D. Signed By:08/10/2447 DD/ TD/TT: Contact Manager: us Mackenzie Michael DO [facility] Final Result documented in this encounter Visit Diagnoses Not on filedocumented in this encounter Care Teams Framing Inspector Relationship Specialty Start Date End Date Unallocated, Noms Provider, [address] [place] [address] PCP - General Family Medicine 08/03/24 documented as of this encounter
--- OUTSIDE RECORDS SUMMARY | 2025-06-12 16:06 | XMS_ITS | Encounter Summary ---
Author Organization [facility] Address [address] [place] [address] Care Team Providers Care Ager Operator Name Role Phone Unallocated, Noms Provider Primary Care Provi krissy Encounter Details Date Type Department Care Team (Late st Contact Info) Description 08/10/2024 Abstract ARJUN PANG [place] [address] Jose Rodriguez DO [address] [place], [place] [address] Social History Tobacco Use Types Packs/Day Years [...] 06/19/2025 2:30 PM EDT Routine ARJUN PANG [place] [address] Jose Rodriguez DO [address] [place], [facility] documented as of this encounter Visit Diagnoses Not on filedocumented in this encounter Care Teams Ager Operator Relationship Specialty Start Date End Date Unallocated, Noms Provider, [address] [place] [address] PCP - General Family Medicine 08/03/24 documented as of this encounter
--- OUTSIDE RECORDS SUMMARY | 2025-06-12 16:06 | XMS_ITS | Encounter Summary ---
Author Organization [facility] Address [address] [place] [address] Care Team Providers Care Locomotive Boilermaker Name Role Phone Unallocated, Noms Provider Primary Care Provi krissy Encounter Details Date Type Department Care Team (Late st Contact Info) Description 06/08/2025 Clinisync Result Encounter NOMS External Department Unsolicited Collin Leach PA [address] [place], [facility]11 Social History Tobacco Use Types [...] PM EDT Routine [facility] [address] [place] [phone] Jose Rodriguez DO [address] [place], [facility]11 documented as of this encounter Procedures Procedure Name Priority Date/Time Associated Diagnosis Comments US OB BPP W NON-STRESS 06/08/2025 12:10 PM EDT documented in this encounter Results * US OB BPP W NON-STRESS (06/08/2025 12:10 PM EDT) Anatomical Region Laterality Modality Other 06/08/2025 12:1 0 PM EDT Narrative 06/08/2025 12:13 [place] [address] Ultrasound Report Signed Patient: VIMAL PIZANO MR#: [id number] : 2000 Acct:[id number] Age/Sex: 25 / F ADM Date: 06/08/25 Loc: US Attending Dr: Collin Leach Ordering Physician: Collin Leach Date of Service: 06/08/25 Procedure(s): US OB BPP w non-stress Accession Number(s): [id number] cc: Collin Leach; LUIS SEE [address] [address] Patient Name: VIMAL PIZANO MRN: [id number] date: 2000 Sex: F Assigned Patient Location: [facility] Current Patient Location: Accession/Order Number: [id number] Exam Date: 06/08/2025 11:01 Report Date: 06/08/2025 12:10 At the request of: COLLIN LEACH Procedure: US OB BPP w non-stress Ultrasound biophysical profile HISTORY: Gestational diabetes Adequate breathing movement, gross body movement, tone and amniotic fluid volume for total score of 8 out of 8. The amniotic fluid index is 10.3cm within normal limits. The heart rate 157 bpm. US/US OB BPP w non-stress IMPRESSION: Adequate ultrasound biophysical profile Impression dictated by: Shivam Knapp M.D. 06/08/2025 12:10 PM Dictation Location: [place] [address] Electronically authenticated by: [id number] Y Date: 06/08/2025 12:10 Dictated By: Shivam Knapp D.O. Signed By: 06/08/251212 DD/ 09 TD/TT: Linoleum Layer: Procedure Note Radiology, Radiologist, - 06/08/2025 [place] [address] Ultrasound Report Signed Patient: VIMAL PIZNAO MMR#: [id number] : 2000Acct:[id number] Age/Sex: 25 / FADM Date: 06/08/25 Loc: US Attending Dr: Collin Leach Ordering Physician: Collin Leach Date of Service: 06/08/25 Procedure(s): US OB BPP w non-stress Accession Number(s): [id number] cc: Collin Leach; LUIS SEE [place] [id number] Patient Name: VIMAL PIZANO MRN: [id number] date: 2000 Sex: F Assigned Patient Location: [facility] Current Patient Location: Accession/Order Number: [id number] Exam Date: 06/08/2025 11:01 Report Date: 06/08/2025 12:10 At the request of: COLLIN LEACH Procedure: US OB BPP w non-stress Ultrasound biophysical profile HISTORY: Gestational diabetes Adequate breathing movement, gross body movement, tone and amniotic fluid volume for total score of 8 out of 8. The amniotic fluidindex is 10.3cm within normal limits. The heart rate 157 bpm. US/US OB BPP w non-stress IMPRESSION: Adequate ultrasound biophysical profile Impression dictated by: Shivam Knapp M.D. 06/08/2025 12:10 PM Dictation Location: [place] [address] Electronically authenticated by: [id number] Y Date: 2:10 Dictated By: Shivam Knapp D.O. Signed By:06/08/251212 DD/ 09 TD/TT: Linoleum Layer: us Collin BISWAS [facility] Final Result documented in this encounter Visit Diagnoses Not on filedocumented in this encounter Care Teams Locomotive Boilermaker Relationship Specialty Start Date End Date Unallocated, Noms Provider, [address] [place], [place] [id number] PCP - General Family Medicine 08/03/24 documented as of this encounter
--- OUTSIDE RECORDS SUMMARY | 2025-06-12 16:06 | XMS_ITS | Encounter Summary ---
Author Organization [facility] Address [address] [place] [address] Care Team Providers Care Electrician Front Name Role Phone Vaishali Zapata MD Primary Care Provider Bipin cheng Unallocated, Noms Provider Primary Care Provi krissy Encounter Details Date Type Department Care Team (Late st Contact Info) Description 08/02/2024 Abstract ARJUN PANG [address] [place] [address] Jose Rodriguez DO [address] [place], [place] [address] Social History Tobacco Use Types Packs/Day Years [...] 2:30 PM EDT Routine ARJUN PANG [address] [place] [address] Jose Rodriguez DO [address] [place], [facility]11 documented as of this encounter Visit Diagnoses Not on filedocumented in this encounter Care Teams Electrician Front Relationship Specialty Start Date End Date Vaishali Zapata MD [address] [place] [address] PCP - General Family Medicine 02/04/23 08/02/24 Unallocated, Noms Provider, [address] [place] [address] PCP - General Family Medicine 08/03/24 documented as of this encounter
--- OUTSIDE RECORDS SUMMARY | 2025-06-12 16:06 | XMS_ITS | Clinical Summary ---
Author Organization [facility] Address [address] [place] [address] Care Team Providers Care Plastic Press Molder Name Role Phone Unallocated, Noms Provider [...] mg) before bedtime. 60 tablet 11 5 026 Active labetalol (Normodyne) 300 MG tabletIndication s:-alexandra mariluz hypertension in third trimester (HHS-HCC) Take 1 tablet (300 mg) by mouth in the morning and 1 tablet (300 mg) in the evening and 1 tablet (300 mg) before bedtime. 90 tablet 5 026 Active Alcohol Swabs (Alcohol Prep Pad) 70 % padsIndications: Gestational diabetes mellitus (GDM), antepartum, gestational diabetes method of control unspecified (HHS-HCC),Elevat ed glucose tolerance test Apply 1 Pad topically Daily Use four times daily to check FSBS. 150 each 3 5 Active Blood Glucose Monitoring Suppl (D-Care Glucometer) w/Device kitIndications:G estational diabetes mellitus (GDM), antepartum, gestational diabetes method of control unspecified ([facility]),Elevat ed glucose tolerance test 1 kit Daily Use four times daily to check FSBS. In the morning prior to breakfast & 1 hour after each meal for a total of 4times daily. 1 kit 5 026 Active progesterone (Endometrin) 100 MG vaginal insert Insert 100 mg into the vagina in the morning and 100 mg before bedtime. 025 Discontinu ed(Therapy completed) Lancets Ultra Thin miscIndications: Gestational diabetes mellitus (GDM), antepartum, gestational diabetes method of control unspecified ([facility]),Elevat ed glucose tolerance test 1 each by In Vitro route Daily Use to check FSBS four times daily 150 each 3 5 025 Glucose Blood (Blood Glucose Test) stripIndications :Gestational diabetes mellitus (GDM), antepartum, gestational diabetes method of control unspecified ([facility]),Elevat ed glucose tolerance test 1 strip by In Vitro route Daily Use in the morning prior to breakfast, 1 hour after each meal for a total of 4times daily. 150 strip 3 5 025 Active Problems Problem Noted Date Diagnosed Date induced hypertension, antepartum ([facility]) 05/28/2025 Gestational diabetes mellitus (GDM), antepartum ([facility]) 05/28/2025 Estimated Date of Delivery Comme nts Yes 07/22/2025 Based on last me nstrual period of 10/15/2024 (Exact Date) Encounters Date Type Department Care Team Description 06/12/2025 3:00 PM EDT Routine [facility] Rafia [facility] [address] [place] [address] Rossana Leach PA Third trimester ([facility]); 34 weeks gestation of ([facility]) 06/12/2025 Bamboo flowsheet [facility] [address] [facility] [place] [address] Rossana Leach PA 06/08/2025 Clinisync Result Encounter NOMS External Department Unsolicited Rossana Leach PA 06/06/2025 Results Follow-Up [facility] [address] [place] [address] Meghanalacho Glenna, CODING SPECIALIST US OB 14+ weeks anatomy scan 06/05/2025 Abstract [facility] [address] [place] [address] Mackenzie Rodriguez, 06/04/2025 External Result Encounter [facility] [address] Mackenzie Rodriguez, 06/01/2025 Clinisync Result Encounter NOMS External Department Unsolicited Rossana Leach PA 05/28/2025 10:30 AM EDT Routine [facility] Rafia [place] [address] Mackenzie Rodriguez, Third trimester ([facility]); 32 weeks gestation of ([facility]); Gestational diabetes mellitus (GDM), antepartum, gestational diabetes method of control unspecified ([facility]); induced hypertension, antepartum ([facility]) 05/28/2025 Bamboo flowsheet [facility] [address] [place] [address] Mackenzie Rodriguez, 05/25/2025 Clinisync Result Encounter NOMS External Department Unsolicited Rossana Leach PA 05/22/2025 2:40 PM EDT Routine [facility] [address] Mackenzie Rodriguez, Third trimester ([facility]); 31 weeks gestation of ([facility]) 05/22/2025 Bamboo flowsheet [facility] [address] [place] [address] Mackenzie Rodriguez, DO 05/20/2025 Clinisync Result Encounter NOMS External Department Unsolicited Mackenzie Rodriguez, 05/18/2025 Clinisync Result Encounter NOMS External Department Unsolicited Rossana Leach PA 05/18/2025 Clinisync Result Encounter NOMS External Department Unsolicited Mackenzie Rodriguez, 05/14/2025 2:40 PM [place] [address] Mackenzie Rodriguez, DO Third trimester ([facility]); 30 weeks gestation of ([facility]); induced hypertension, antepartum ([facility]) 05/14/2025 [place] [address] Mackenzie Rodriguez, 05/11/2025 Clinisync Result Encounter NOMS External Department Unsolicited Rossana Leach PA 05/08/2025 [place] [address] Mackenzie Rodriguez, DO 05/07/2025 Results [place] [address] Glenna Butler, CODING SPECIALIST ALL CBC WITH AUTO DIFF, SRMCOH PROTHROMBIN TIME INR W/O COUM, [facility] APTT, Additional followed-up results: 6 05/06/2025 Clinisync Result Encounter NOMS External Department UnsolicRossana Adames PA 05/04/2025 Clinisync Result Encounter NOMS External Department Unsolicited Rossana Leach PA 05/04/2025 Clinisync Result Encounter NOMS External Department Unsolicited Rossana Leach PA 05/04/2025 [place] [address] Mackenzie Rodriguez, DO 05/04/2025 Clinisync Result Encounter NOMS External Department Unsolicited Rossana Leach PA 04/30/2025 10:50 AM EDT Routine [facility]ia [place] [address] Rossana Leach PA BP check; -induced hypertension in third trimester ([facility]); Gestational diabetes mellitus (GDM) in third trimester, gestational diabetes method of control unspecified ([facility]) 04/30/2025 Bamboo flowsheet [facility] [place] [address] Rossana Leach PA 04/29/2025 Telephone [facility] [place] [address] Kavitha Almanza MA 04/27/2025 Clinisync Result Encounter NOMS External Department Unsolicited Rossana Leach PA 04/25/2025 2:50 PM EDT Office Visit ARJUN [facility] [place] [address] Rossana Leach PA Second trimester ([facility]); 27 weeks gestation of ([facility]); induced hypertension, antepartum ([facility]) 04/25/2025 Bamboo flowsheet NOMMay Gus[facility] [place] [place] [address] Rossana Leach PA 04/11/2025 3:30 PM EDT Routine [facility] Raf[facility] [facility] [place] [address] Rossana Leach PA Second trimester ([facility]); 25 weeks gestation of ([facility]); Diabetes mellitus screening; Elevated BP without diagnosis of hypertension 04/11/2025 Bamboo flowsheet NOM[facility] [place] [address] Rossana Leach PA 03/28/2025 Abstract [facility] [place] [address] Mackenzie Rodriguez DO 03/25/2025 Clinisync Result Encounter NOMS External Department Unsolicited Mackenzie Rodriguez DO 03/14/2025 10:50 AM EDT Routine NOM[facility] PANG [address] [place], [place] [address] [address] Mackenzie Rodriguez DO Second trimester ([facility]); 21 weeks gestation of ([facility]) 03/14/2025 Bamboo flowsheet [facility] Rafia PANG [address] [place] [address] [place] [address] Mackenzie Rodriguez DO from Last 3 Months Family History Medical [...] oz) 06/12/2025 3:22 P M EDT Height 160 cm (5' 3 ) 01/06/2023 12:00 PM EDT Body Mass Index 31.96 01/06/2023 12:00 PM EDT Plan of Treatment Upcoming Encounters Date Type Department Care Team (Late st Contact Info) Description 06/19/2025 2:30 PM EDT Routine [facility] PANG [address] [place], [place] [address] [address] Mackenzie Rodriguez DO [address] [place] [address] [place]é [place] [address] Health Maintenance Due Date Last Done Comments Influenza Vaccine (#1) 2025 08/28/2003, 2002 Procedures Procedure Name Priority Date/Time Associated Diagnosis Comments POCT URINALYSIS DIPSTICK Routine 06/12/2025 3:32 PM EDT Third trimester ([facility]) 34 weeks gestation of ([facility]) US OB BPP W NON-STRESS 06/08/2025 12:10 PM EDT US OB 14+ WEEKS ANATOMY SCAN 06/04/2025 4:20 PM EDT US OB BPP W NON-STRESS 06/01/2025 12:03 PM EDT POCT URINALYSIS DIPSTICK Routine 05/28/2025 11:00 AM EDT Third trimester ([facility]) US OB BPP W NON-STRESS 05/25/2025 11:13 AM EDT POCT URINALYSIS DIPSTICK Routine 05/22/2025 3:12 PM EDT Third trimester ([facility]) TBH TOTAL PROTEIN 24 HOUR URINE Routine [...] Routine 04/25/2025 3:12 PM EDT Second trimester ([facility]) POCT URINALYSIS DIPSTICK Routine 04/11/2025 3:44 PM EDT Second trimester ([facility]) US OB INCOMPLETE ANATOMY 03/25/2025 8:25 AM EDT POCT URINALYSIS DIPSTICK Routine 03/14/2025 11:39 AM EDT Second trimester ([facility]) from Last 3 Months Results * (ABNORMAL) POCT urinalysis dipstick manually resulted (06/12/2025 3:32 PM EDT) Only the most recent of7 resultswithin the time period is included. Color, [...] - Positive Urine 06/12/2025 3:32 PM EDT Mackenzie Rodriguez DO POINT OF CARE TEST ENTER/EDIT OR DERABLES Final Result * US OB BPP W NON-STRESS (06/08/2025 12:10 PM EDT) Only the most recent of6 resultswithin the time period is included. Anatomical Region Laterality Modality Other 06/08/2025 12:1 0 PM EDT Narrative 06/08/2025 12:13 [place] [address] Ultrasound Report Signed Patient: VIMAL FUNES MR#: [id number] : 2000 Acct:[id number] Age/Sex: 25 / F ADM Date: 06/08/25 Loc: US Attending Dr: Rossana Leach Ordering Physician: Rossana Leach Date of Service: 06/08/25 Procedure(s): US OB BPP w non-stress Accession Number(s): [id number] cc: Rossana Leach; LUIS SEE [place] [phone] Patient Name: VIMAL FUNES MRN: [id number] date: 2000 Sex: F Assigned Patient Location: [facility] Current Patient Location: Accession/Order Number: [id number] Exam Date: 06/08/2025 11:01 Report Date: 06/08/2025 12:10 At the request of: ROSSANA LEACH Procedure: [...] Knapp M.D. 06/08/2025 12:10 PM Dictation Location: [place] [address] Electronically authenticated by: [id number] Y Date: 06/08/2025 12:10 Dictated By: Shivam Knapp D.O. Signed By: 06/08/251212 DD/ 09 TD/TT: Vessel Master: Procedure Note Radiology, Radiologist, - 06/08/2025 [place] [address] Ultrasound Report Signed Patient: VIMAL FUNES MMR#: [id number] : 2000Acct:[id number] Age/Sex: 25 / FADM Date: 06/08/25 Loc: US Attending Dr: Rossana Leach Ordering Physician: Rossana Leach Date of Service: 06/08/25 Procedure(s): US OB BPP w non-stress Accession Number(s): [id number] cc: Rossana Leach; LUIS SEE [place] [phone] Patient Name: VIMAL FUNES MRN: [id number] date: 2000 Sex: F Assigned Patient Location: [facility] Current Patient Location: Accession/Order Number: [id number] Exam Date: 06/08/2025 11:01 Report Date: 06/08/2025 12:10 At the request of: ROSSANA LEACH Procedure: [...] Knapp M.D. 06/08/2025 12:10 PM Dictation Location: [place] [address] Electronically authenticated by: [id number] Y Date: 2:10 Dictated By: Shivam Knapp D.O. Signed By:06/08/251212 DD/ 09 TD/TT: Vessel Master: us Rossana BISWAS [facility]IN[facility] IMAGING Final Result * US OB 14+ weeks anatomy scan (06/04/2025 4:20 PM EDT) Anatomical Region Laterality Modality Body Ultrasound 06/04/2025 4:20 PM EDT Narrative 06/04/2025 4:20 PM EDT THIS EXAM WAS PERFORMED AT [facility] NAME: JERICA CELIS : 2000 SEX: F Accession Number: [id number] ORDERING PHYSICIAN: CHRIS MARTIN REFERRING PHYSICIAN: MACKENZIE RODRIGUEZ Coding ----- --------- Procedures 02259: Ultrasound, uterus, real time with image documentation, and maternal evaluation plus detailed anatomic examination, transabdominal approach;single or first gestation 65055: Doppler velocimetry, ; umbilical artery Indication ----- [...] EFW (oz) 4 oz EFW by: Hadlock ([id number]-CP-FL) Extended Tibia 49.0 mm 29w 3d <1% Khanh Foot 56.8 mm <1% Chitty [employer] Retrofit Technician 4.6 mm CM 6.2 mm 19% Nicolaides [...] bone. Maxilla. Mandible. Orbits. Heart/Thorax: LVOT view. 7-iswyxa-yalviyv view. Situs. Ductal arch view. Cardiac position. [...] - 06/04/2025 THIS EXAM WAS PERFORMED AT [facility] NAME: JERICA CELIS : 2000 SEX: F Accession Number: [id number] ORDERING PHYSICIAN: CHRIS MARTIN REFERRING PHYSICIAN: MACKENZIE RODRIGUEZ Coding ----- --------- Procedures 41152: Ultrasound, uterus, real time with imagedocumentation, and maternal evaluation plus detailed anatomic examination, transabdominalapproach;single or first gestation 51846: Doppler velocimetry, ; umbilical artery Indication ----- [...] EFW (oz) 4 oz EFW by: Hadlock ([id number]-[id number]-SW-FL) Extended Tibia 49.0 mm 29w 3d <1% Khanh Foot 56.8 mm <1% [employer] Retrofit Technician 4.6 mm CM 6.2 mm 19% Nicolaides [...] bone. Maxilla. Mandible. Orbits. Heart/Thorax: LVOT view. 2-uttraw-vlkqnoz view. Situs. Ductal arch view.Cardiac position. Cardiac [...] 4.2 cm. Recommendations ----- --------- Please see [facility] documentation from today. Subsequent follow up or other follow up as clinically determined byprimary OB provider unless otherwise specified by [facility]. Results forwarded to ordering provider so they can follow up with thepatient as necessary. The copy-to physician of this order is MACKENZIE Victoria The ordering physician of this order is CHRIS Patterson Mackenzie Rodriguez DO IMG OB US PROCEDURES Final Resul t * (ABNORMAL) TBH TOTAL PROTEIN 24 HOUR [...] Narrative CLINISYNC - 05/20/2025 7:25 PM EDT [facility] Michael DO CLINISYNC Final Result Performing Organization Address [facility]/ZIP Co de Phone Number [facility] * (ABNORMAL) TBH CREATININE (05/18/2025 11:03 AM EDT) Only the most recent of2 resultswithin the time period is included. CREATININE 0.38(L) 0.55 - 1.02 mg/dL TBH TBH EGFR-AF OMANI >60 >=60 mL/min/1.7 3m 2 TBH TBH EGFR-NON AF OMANI >60 >=60 mL/min/1.7 3m 2 TBH 05/18/2025 11:0 3 AM EDT 05/18/2025 11:08 AM EDT Narrative CLINISYNC - 05/18/2025 11:50 AM EDT [facility] [place] DO [facility] Final Result CLINISYVT TB * SRMCOH PROTHROMBIN TIME INR W/O COUM [...] DO CLINISYNC Final Result Performing Organization Address [facility]/ZIP Co de Phone Number [facility] * [facility] AST (05/18/2025 11:03 AM EDT) Only the most recent of2 resultswithin the time period is included. ASPARTATE AMINO TRANSFERASE 18 15 - 37 U/L TB 05/18/2025 11:0 3 AM EDT 05/18/2025 11:08 AM EDT Narrative CLINISYNC - 05/18/2025 11:50 AM EDT Mackenzie Michael DO CLINISYNC Final Result Performing Organization Address [facility] Co de Phone Number [facility] * [facility] APTT (05/18/2025 11:03 AM EDT) Only the most recent of2 resultswithin the time period is included. PARTIAL THROMBOPLASTIN TIME 25.6 22.3 - 36.2 sec TB 05/18/2025 11:0 3 AM EDT 05/18/2025 11:08 AM EDT Narrative CLINISYNC - 05/18/2025 11:29 AM EDT Mackenzie Michael DO CLINISYNC Final Result Performing Organization Address City/[facility]/ZIP Co de Phone Number [facility] * ALL URIC ACID (05/18/2025 11:03 AM EDT) Only the most recent of2 resultswithin the time period is included. URIC ACID 4.0 2.6 - 6.0 mg/dL TB 05/18/2025 11:0 3 AM EDT 05/18/2025 11:08 AM EDT Narrative CLINISYNC - 05/18/2025 11:50 AM EDT Mackenzie Michael DO CLINISYNC Final Result [facility] * ALL LDH (05/18/2025 11:03 AM EDT) Only the most recent of2 resultswithin the time period is included. LACTATE DEHYDROGENASE 147 81 - 234 U/L TB 05/18/2025 11:0 3 AM EDT 05/18/2025 11:08 AM EDT Narrative CLINISYNC - 05/18/2025 11:50 AM EDT [facility] Final Result Performing Organization Address City/[facility]/ZIP Co de Phone Number [facility] * (ABNORMAL) ALL CBC WITH AUTO [...] us Mackenzie Michael DO CLINISYNC Final Result [facility]IN[facility]NC [facility] * ALL BUN (05/18/2025 11:03 AM EDT) Only the most recent of2 resultswithin the time period is included. Pathologist [facility] BLOOD UREA NITROGEN 9.0 7.0 - 18.0 mg/dL TBH 05/18/2025 11:0 3 AM EDT 05/18/2025 11:08 AM EDT Narrative CLINISYNC - 05/18/2025 11:50 AM EDT us Mackenzie Michael DO CLINISYNC Final Result [facility] * US OB GROWTH (05/04/2025 12:08 PM EDT) Anatomical Region Laterality Modality Other 05/04/2025 12:0 8 PM EDT Narrative 05/04/2025 12:11 PM EDT [address] [address] Ultrasound Report Signed Patient: VIMAL FUNES MR#: [id number] : 2000 Acct:[id number] Age/Sex: 25 / F ADM Date: 05/04/25 Loc: [facility] 250-[address]: Rossana Leach Ordering Physician: Rossana Leach Date of Service: 05/04/25 Procedure(s): US OB growth Accession Number(s): [id number] cc: Rossana Leach; LUSI SEE [place] [address] Patient Name: VIMAL FUNES MRN: [id number] date: 2000 Sex: F Assigned Patient Location: [facility] Current Patient Location: [facility] Accession/Order Number: [id number] Exam Date: 05/04/2025 12:06 Report Date: 05/04/2025 [...] Jr., D.O. 05/04/2025 12:08 PM Dictation Location: [place] [address] Electronically authenticated by: [id number] Y Date: 05/04/2025 12:08 Dictated By: Bulmaro Arias M.D. Signed By: 05/04/25 1211 DD/ 1208 TD/TT: Vessel Master: Procedure Note Radiology, Radiologist, - 05/04/2025 [place] [address] Ultrasound Report Signed Patient: VIMAL FUNES MMR#: [id number] : 2000Acct:[id number] Age/Sex: 25 / FADM Date: 05/04/25 Loc: [facility] 250- Attending Dr: Rossana Leach Ordering Physician: Rossana Leach Date of Service: 05/04/25 Procedure(s): US OB growth Accession Number(s): [id number] cc: Rossana Leach; LUIS SEE [place] [address] Patient Name: VIMAL FUNES MRN: [id number] date: 2000 Sex: F Assigned Patient Location: [facility] Current Patient Location: [facility] Accession/Order Number: [id number] Exam Date: 05/04/2025 12:06 Report Date: 05/04/2025 [...] Jr., D.O. 05/04/2025 12:08 PM Dictation Location: [place] Electronically authenticated by: [id number] Y Date: 2:08 Dictated By: Bulmaro Arias M.D. Signed By:05/04/25 1211 DD/ 1208 TD/TT: Vessel Master: us Rossana [facility] IMAG[facility] Final Result [...] CLINISYNC - 05/04/2025 10:50 AM EDT us oRssana BISWAS LAB BLOOD ORDERABLES Final Resul t Performing Organization Address City/[facility]/ZIP Co de Phone Number [facility] * (ABNORMAL) GLUCOSE 1 HOUR (04/27/2025 10:05 AM EDT) GLUCOSE 1 HOUR 171(H) <130 mg/dL TB 04/27/2025 10:0 5 AM EDT 04/27/2025 10:06 AM EDT Narrative CLINISYNC - 04/27/2025 10:45 AM EDT Rossana BISWAS LAB BLOOD ORDERABLES Final Resul t Performing Organization Address City/State/[facility] Co de Phone Number CLINISYVT TB * US OB INCOMPLETE ANATOMY (03/25/2025 8:25 AM EDT) Anatomical Region Laterality Modality Other 03/25/2025 8:25 AM EDT Narrative 03/25/2025 8:27 AM EDT [address] [address] Ultrasound Report Signed Patient: VIMAL FUNES MR#: [id number] : 2000 Acct:[id number] Age/Sex: 24 / F ADM Date: 03/23/25 Loc: US Attending Dr: Mackenzie Rodriguez D.O. Ordering Physician: Mackenzie Rodriguez D.O. Date of Service: 03/23/25 Procedure(s): US OB incomplete anatomy Accession Number(s): [id number] cc: LUIS SEE ; Mackenzie Rodriguez D.O. [place] [address] Patient Name: VIMAL FUNES MRN: [id number] date: 2000 Sex: F Assigned Patient Location: US Current Patient Location: US Accession/Order Number: [id number] Exam Date: 03/25/2025 08:23 Report Date: 03/25/2025 [...] Brown M.D. 03/25/2025 8:25 AM Dictation Location: [place] [address] Electronically authenticated by: [id number] Y Date: 03/25/2025 08:25 Dictated By: Meghana Brown M.D. Signed By: 03/25/25826 DD/ 4 TD/TT: Vessel Master: Procedure Note Radiology, Radiologist, MD - 03/25/2025 [place] [address] Ultrasound Report Signed Patient: VIMAL FUNES MMR#: [id number] : 2000Acct:[id number] Age/Sex: 24 / FADM Date: 03/23/25 Loc: US Attending Dr: Mackenzie Rodriguez D.O. Ordering Physician: Mackenzie Rodriguez D.O. Date of Service: 03/23/25 Procedure(s): OB incomplete anatomy Accession Number(s): [id number] cc: LUIS SEE ; Mackenzie Rodriguez D.O. [place] [id number] Patient Name: VIMAL FUNES MRN: [id number] date: 2000 Sex: F Assigned Patient Location: US Current Patient Location: US Accession/Order Number: [id number] Exam Date: 03/25/2025 08:23 Report Date: 03/25/2025 [...] Brown M.D. 03/25/2025 8:25 AM Dictation Location: [place] [address] Electronically authenticated by: [id number] Y Date: 508:25 Dictated By: Meghana Brown M.D. Signed By:03/25/25826 DD/ 4 TD/TT: Vessel Master: Mackenzie Rodriguez DO CLINISYNC IMAGING Final Result from Last 3 Months Insurance [employer] Care Teams Plastic Press Molder Relationship Specialty Start Date End Date Unallocated, Noms Provider, [address] [place] [place] [address] PCP - General Family Medicine 08/03/24
--- OUTSIDE RECORDS SUMMARY | 2025-06-12 16:06 | XMS_ITS | Encounter Summary ---
Author Organization [facility] Address [address] [place] [address] Care Team Providers Care Art Department Head Name Role Phone Unallocated, Noms Provider Primary Care Provi krissy Encounter Details Date Type Department Care Team (Late st Contact Info) Description 06/12/2025 Bamboo flowsheet [facility]JUN [facility]ANG [address] [place] [address] Rossana Ramos PA [facility] [address] [place], [facility] Social History Tobacco Use Types Packs/Day Years [...] 2:30 PM EDT Routine NOMMay [facility]ANG [address] [place] [address] Michael, Jose, [address] Josué [place] [address] documented as of this encounter Visit Diagnoses Not on filedocumented in this encounter Care Teams Art Department Head Relationship Specialty Start Date End Date Unallocated, Noms Provider, [place] [address] PCP - General Family Medicine 08/03/24 documented as of this encounter
--- OUTSIDE RECORDS SUMMARY | 2025-06-12 16:06 | XMS_ITS | Encounter Summary ---
Author Organization [facility] Address [address] [place] [address] Care Team Providers Care Drapery And Upholstery Measurer Name Role Phone Unallocated, Noms Provider Primary Care Provi krissy Encounter Details Date Type Department Care Team (Late st Contact Info) Description 06/06/2025 Results Follow-Up [facility] [place] [facility] [address] [facility] [place] [address] Glenna Butler LPN [address] [place] [address] OB 14+ weeks anatomy scan Social History Tobacco Use Types Packs/Day Years [...] Encounter Note - Glenna Butler LPN - 06/06/2025 8:27 AM EDT Done! documented in this encounter Plan of Treatment Upcoming Encounters Date Type Department Care Team (Late st Contact Info) Description 06/19/2025 2:30 PM EDT Routine [facility] [place] [facility] [address] [facility] [place] [address] Jose Rodriguez DO [address] [place] [address] documented as of this encounter Visit Diagnoses Not on filedocumented in this encounter Care Teams Drapery And Upholstery Measurer Relationship Specialty Start Date End Date Unallocated, Noms MD [address] [place] [address] PCP - General Family Medicine 08/03/24 documented as of this encounter
--- OUTSIDE RECORDS SUMMARY | 2025-06-12 16:06 | XMS_ITS | Encounter Summary ---
Author Organization [facility] Address [address] [place] [address] Care Team Providers Care Clothes Marker Name Role Phone Unallocated, Noms Provider Primary Care Provi krissy Encounter Details Date Type Department Care Team (Late st Contact Info) Description 08/10/2024 Abstract [facility]JUN [facility] [place] [address] Jose Rodriguez DO [address] [place], [place] [address] Social History Tobacco Use Types Packs/Day Years [...] 06/19/2025 2:30 PM EDT Routine ARJUN PANG [facility] [place] [address] Jose Rodriguez DO [address] [place], [facility] documented as of this encounter Visit Diagnoses Not on filedocumented in this encounter Care Teams Clothes Marker Relationship Specialty Start Date End Date Unallocated, Noms Provider, [address] [place] [address] PCP - General Family Medicine 08/03/24 documented as of this encounter
--- OUTSIDE RECORDS SUMMARY | 2025-06-12 16:06 | XMS_ITS | Encounter Summary ---
Author Organization [facility] Address [address] [place] [address] Care Team Providers Care Event Sales Assistant Name Role Phone Vaishali Zapata MD Primary Care Provider Bipin cheng Unallocated, Noms Provider Primary Care Provi krissy Encounter Details Date Type Department Care Team (Late st Contact Info) Description 06/29/2024 Abstract ARJUN PANG [address] [place] [address] Jose Rodriguez DO [address] [place], [place] [address] Social History Tobacco Use Types Packs/Day Years [...] 2:30 PM EDT Routine ARJUN PANG [address] [place] [address] Jose Rodriguez DO [address] [place], [facility]11 documented as of this encounter Visit Diagnoses Not on filedocumented in this encounter Care Teams Event Sales Assistant Relationship Specialty Start Date End Date Vaishali Zapata MD [address] [place] [place] [address] PCP - General Family Medicine 02/04/23 08/02/24 Unallocated, Noms Provider, [address] [place] [address] PCP - General Family Medicine 08/03/24 documented as of this encounter
--- OUTSIDE RECORDS SUMMARY | 2025-06-12 16:06 | XMS_ITS | Encounter Summary ---
Author Organization [facility] tem Address [id number] [address] [place] [address] Care Team Providers Care Menu Planner Name Role Phone Unavailable Primary Care Provider Unavailabl e Encounter Details Date Type Department Care Team ([facility] Contact Info) Description 05/31/2025 Orders Only Maternal- Medicine at [facility] [address] [place] [phone] Ref Prov, [place] [address] Social History Tobacco Use Types Packs/Day Years [...] Department Care Team (Late Contact Info) Description 06/18/2025 3:30 PM EDT Appointment [facility] US Imaging [address] [place] [address] 06/24/2025 2:15 PM EDT Appointment Maternal Medicine [place] [address] [place] [address] documented as of this encounter Visit Diagnoses Not on filedocumented in this encounter
--- OUTSIDE RECORDS SUMMARY | 2025-06-12 16:06 | XMS_ITS | Encounter Summary ---
Author Organization [facility] tem Address [id number] [address] [place] [address] Care Team Providers Care Office Automation Technician Name Role Phone Unavailable Primary Care Provider Unavailabl e Encounter Details Date Type Department Care Team (Late Contact Info) Description 05/31/2025 Abstract Maternal- Medicine at [facility] [address] [place] [phone] External, Scanning Provider Social History Tobacco Use [...] Info) Description 06/18/2025 3:30 PM EDT Appointment [facility] US Imaging [address] [place] [address] 06/24/2025 2:15 PM EDT Appointment Maternal Medicine [place] [address] [place] [address] [place] [address] documented as of this encounter [...] ORDERABLES Kayli l Result Performing Organization Address City/[facility]/ZIP Co de Phone Number MANUALLY TRANSCRIBED RESULTS * HIV 1&2 AB/AG Screen (P24 AG) (01/05/2025) HIV 1&2 AB/AG Non Reactive MAN UALLY TRANSCRIBED RESULTS Blood Venous blood / Unknown us Not In System Ref Prov LAB BLOOD ORDERABLES Kayli l Result Performing Organization Address City/[facility]/ZIP Co de Phone Number MANUALLY TRANSCRIBED [...] ORDERABLES Kayli l Result Performing Organization Address City/[facility] Co de Phone Number MANUALLY TRANSCRIBED RESULTS [...] ORDERABLES Final Re sult Performing Organization Address [facility] de Phone Number MANUALLY TRANSCRIBED RESULTS * CBC without diff (01/05/2025) Hemoglobin 14.7 MANUALLY TRANSCRIBED RESULTS Hematocrit 42.5 MANUALLY TRANSCRIBED RESULTS Rbc Mcv (Fl) By Automated Count 91.4 MANUALLY TRANSCRIBED RESULTS Blood Venous blood / Unknown us Not In System Ref Prov LAB BLOOD ORDERABLES Kayli l Result Performing Organization Address [facility] Co de Phone Number MANUALLY TRANSCRIBED RESULTS documented in this encounter Visit Diagnoses Not on filedocumented in this encounter
--- OUTSIDE RECORDS SUMMARY | 2025-06-12 16:06 | XMS_ITS | Encounter Summary ---
Author Organization [facility] Address [address] [place] [address] Care Team Providers Care Videotape Recording Engineer Name Role Phone Unallocated, Noms Provider Primary Care Provi krissy Encounter Details Date Type Department Care Team (Late st Contact Info) Description 08/10/2024 Abstract ARJUN PANG [facility] [place] [address] Jose Rodriguez DO [address] [place], [place] [address] Social History Tobacco Use Types Packs/Day Years [...] 06/19/2025 2:30 PM EDT Routine ARJUN PANG [facility] [place] [address] Jose Rodriguez DO [address] [place], [facility]11 documented as of this encounter Visit Diagnoses Not on filedocumented in this encounter Care Teams Videotape Recording Engineer Relationship Specialty Start Date End Date Unallocated, Noms Provider, [address] [place] [address] PCP - General Family Medicine 08/03/24 documented as of this encounter
--- OUTSIDE RECORDS SUMMARY | 2025-06-12 16:06 | XMS_ITS | Encounter Summary ---
Author Organization [facility] tem Address [id number] [address] [place] [address] Care Team Providers Care Adjunct Spanish Instructor Name Role Phone Unavailable Primary Care Provider Unavailabl e Encounter Details Date Type Department Care Team (Latest Contact Info) Description 06/11/2025 Travel Social History Tobacco Use Types Packs/Day [...] 06/18/2025 3:30 PM EDT Appointment [facility] US Imaging [address] [place] [address] 06/24/2025 2:15 PM EDT Appointment Maternal Medicine [place] [address] [place] [address] documented as of this encounter Visit Diagnoses Not on filedocumented in this encounter
--- OUTSIDE RECORDS SUMMARY | 2025-06-12 16:06 | XMS_ITS | Encounter Summary ---
Author Organization [facility] tem Address [id number] [address] [place] [address] Care Team Providers Care Coppersmith Apprentice Name Role Phone Unavailable Primary Care Provider Unavailabl e Encounter Details Date Type Department Care Team (Latest Contact Info) Description 06/09/2025 Travel Social History Tobacco Use Types Packs/Day [...] Info) Description 06/18/2025 3:30 PM EDT Appointment [facility] US Imaging [address] [place] [address] 06/24/2025 2:15 PM EDT Appointment Maternal Medicine [place] [address] [place] [address] documented as of this encounter Visit Diagnoses Not on filedocumented in this encounter
--- OUTSIDE RECORDS SUMMARY | 2025-06-12 16:06 | XMS_ITS | Encounter Summary ---
Author Organization [facility] Address [address] [place] [address] Care Team Providers Care Medical Equipment Technician Name Role Phone Vaishali Chaidez MD Primary Care Provider Bipin cheng Unallocated, Noms Provider Primary Care Provi krissy Encounter Details Date Type Department Care Team (Late st Contact Info) Description 06/29/2024 Clinisync Result Encounter [facility] External Department Unsolicited Mackenzie Rodriguez, DO [address] [place], [place] [id number] Social History Tobacco Use Types Packs/Day Years [...] PM EDT Routine [facility] [place] [facility] [address] [place] [phone] Mackenzie Rodriguez DO [address] [place] [address] documented as of this encounter Procedures Procedure Name Priority Date/Time Associated Diagnosis Comments US OB TRANSVAGINAL 06/29/2024 9: 11 AM EDT documented in this encounter Results * US OB TRANSVAGINAL (06/29/2024 9:11 AM EDT) Anatomical Region Laterality Modality Other 06/29/2024 9:11 AM EDT Narrative 06/29/2024 9:14 [place] [address] Ultrasound Report Signed Patient: Vimal Pizano MR#: [id number] : 2000 Acct:[id number] Age/Sex: 24 / F ADM Date: 06/29/24 Loc: [facility] Attending Dr: Mackenzie Rodriguez D.O. Ordering Physician: Mackenzie Rodriguez D.O. Date of Service: 06/29/24 Procedure(s): US OB transvaginal Accession Number(s): [id number] cc: Mackenzie Rodriguez D.O.; VAISHALI CHAIDEZ [place] [address] Patient Name: VIMAL PIZANO MRN: [id number] date: 2000 Sex: F Assigned Patient Location: [facility] Current Patient Location: [facility] Accession/Order Number: [id number] Exam Date: 06/29/2024 08:37 Report Date: 06/29/2024 [...] M.D. Signed By: 06/29/24913 DD/ 0 TD/TT: Associate Relations Specialist: Procedure Note Radiology, Radiologist, MD - 06/29/2024 [place] [address] Ultrasound Report Signed Patient: Vimal Pizano MMR#: [id number] : 2000Acct:[id number] Age/Sex: 24 / FADM Date: 06/29/24 Loc: [facility] Attending Dr: Mackenzie Rodriguez D.O. Ordering Physician: Mackenzie Rodriguez D.O. Date of Service: 06/29/24 Procedure(s): US OB transvaginal Accession Number(s): [id number] cc: Mackenzie Rodriguez D.O.; VAISHALI CHAIDEZ [place] [address] Patient Name: VIMAL PIZANO MRN: [id number] date: 2000 Sex: F Assigned Patient Location: [facility] Current Patient Location: [facility] Accession/Order Number: [id number] Exam Date: 06/29/2024 08:37 Report Date: 06/29/2024 [...] Herrera M.D. Signed By:06/29/24913 DD/ 0 TD/TT: Associate Relations Specialist: us Mackenzie Michael DO [facility] Final Result documented in this encounter Visit Diagnoses Not on filedocumented in this encounter Care Teams Medical Equipment Technician Relationship Specialty Start Date End Date Vaishali Chaidez MD [address] [place] [address] PCP - General Family Medicine 02/04/23 08/02/24 Unallocated, Noms Provider, [address] [place] [address] PCP - General Family Medicine 08/03/24 documented as of this encounter
--- OUTSIDE RECORDS SUMMARY | 2025-06-12 16:06 | XMS_ITS | Encounter Summary ---
Author Organization [facility] Address [address] [place] [address] Care Team Providers Care Ribbon Tier Name Role Phone Unallocated, Noms Provider Primary Care Provi krissy Encounter Details Date Type Department Care Team (Late Contact Info) Description 05/08/2025 Abstract ARJUN PANG [facility] [place] [address] Jose Rodriguez DO [address] [place], [facility]11 Social History Tobacco Use [...] EDT Routine NOMMay PANG [address] [place] [address] Jose Rodriguez DO [address] [facility] [address] [place] [address] documented as of this encounter Visit Diagnoses Not on filedocumented in this encounter Care Teams Ribbon Tier Relationship Specialty Start Date End Date Unallocated, Noms Provider, [place] [address] PCP - General Family Medicine 08/03/24 documented as of this encounter
--- OUTSIDE RECORDS SUMMARY | 2025-06-12 16:06 | XMS_ITS | Encounter Summary ---
Author Organization [facility] [employer] [facility] tem Address [id number] [address] [place] [address] Care Team Providers Care Tire Center Manager Name Role Phone Unavailable Primary Care [...] consult Chris Martin MD [address], [address] [place] [address] Phone: tel: fax: Maternal- Medicine at [place] [phone] [place] [address] Phone: tel: fax: Referral ID Status Reason Start Date Expiration Date V isits Requested Visits Authorized [id number] Pending Review 06/04/2025 06/04/2026 1 1 * [...] consult Chris Martin MD [address], [address] [place] [address] Phone: tel: fax: Maternal- Medicine at [facility] [address] [place] [address] Phone: tel: fax: Referral ID Status Reason Start Date Expiration Date V isits Requested Visits Authorized [id number] Pending Review 06/04/2025 06/04/2026 1 1 Encounter Details Date Type Department Care Team (Late st Contact Info) Description 06/04/2025 Orders Only Maternal- Medicine at [facility] [address] [place] [address] Marii Yoo, RN Poor growth affecting management of mother [...] Info) Description 06/18/2025 3:30 PM EDT Appointment [facility] - MFM US Imaging [address] [place] [address] 06/24/2025 2:15 PM EDT Appointment Maternal Medicine [place] [address] [place] [address] [place] [address] Scheduled Orders Name Type Priority Associated Diagnoses Orde r Schedule US MFM with or without consult Imaging Routine Poor growth affecting management of mother in third trimester, single or unspecified fetus Gestational diabetes mellitus (GDM) in third trimester, gestational diabetes method of control unspecified Expected: 06/04/2026 (Approximate), Expires: 06/04/2026 documented as of this encounter Results * US MFM LMTD OB, 1 OR MORE FETUS (06/11/2025 8:39 AM EDT) Anatomical Region Laterality Modality OB-HOSIERY BAGGER Ultrasound 06/11/2025 8:10 AM EDT Narrative 06/11/2025 10:28 AM EDT NAME: JERICA CELIS : 2000 SEX: F Accession Number: [id number] ORDERING PHYSICIAN: CHRIS MARTIN REFERRING PHYSICIAN: MACKENZIE SANDERSON Coding ----- --------- Procedures 23944: Limited OB / DANYA, 1 or More Fetuses 48451: Doppler velocimetry, ; umbilical artery Indication ----- [...] today's exam. Recommendations ----- --------- Please see [facility] recommendations from prior clinical and/or ultrasound report documentation. The patient is scheduled for weekly Dopplers. The patient is scheduled in two weeks for growth ultrasound and Dopplers. Continue testing as previously recommended. Subsequent follow up or other follow up as clinically determined by primary OB provider unless otherwise specified by [facility]. Results forwarded to ordering provider so they can follow up with the patient as necessary. Procedure Note Maria Luisa Patel MD - 06/11/2025 NAME: JERICA CELIS : 2000 SEX: F Accession Number: [id number] ORDERING PHYSICIAN: CHRIS MARTIN REFERRING PHYSICIAN: MACKENZIE SANDERSON Coding ----- --------- Procedures 40163: Limited OB / DANYA, 1 or More Fetuses 33208: Doppler velocimetry, ; umbilical artery Indication ----- [...] today's exam. Recommendations ----- --------- Please see [facility] recommendations from prior clinical and/or ultrasoundreport documentation. The patient is scheduled for weekly Dopplers. The patient is scheduled in two weeks for growth ultrasound andDopplers. Continue testing as previously recommended. Subsequent follow up or other follow up as clinically determined byprimary OB provider unless otherwise specified by [facility]. Results forwarded to ordering provider so they can follow up with thepatient as necessary. us Chris Martin MD IMG US ORDERABLES Final Resul t documented in this encounter Visit Diagnoses Diagnosis Poor growth affecting management of mother in third trimester, single or unspecified fetus- Primary Gestational diabetes mellitus (GDM) in third trimester, gestational diabetes method of control unspecified Poor growth affecting management of mother in third trimester, single or unspecified fetus Gestational diabetes mellitus (GDM) in third trimester, gestational diabetes method of control unspecified documented in this encounter
--- OUTSIDE RECORDS SUMMARY | 2025-06-12 16:06 | XMS_ITS | Patient Health Record ---
Author Organization [facility] in [place] Address [address] [place] [address] Care Team Providers Care Surgical Assist Name Role Phone Mariia Seeela Primary Care Provider Allergies No Known Allergies Results Component Value Reference Range Notes Type and Screen Reviewed date:07/23/2024 08:22:00 AM Interpretation: Performing Lab: Notes/Report: [facility] , Blood Type A Positive Antibody Screen NEGATIVE Box Test Reviewed date:07/23/2024 08:22:00 AM Interpretation: Performing Lab: Notes/Report: [facility] , BOX Test Sent Out UNITY BOX Test Reference Lab UNITY BOX Test Date Sent 07/21/24 Performing Lab: see note ML - [facility] LB CBC AUTO DIFF Reviewed date:08/03/2024 08:30:13 AM Interpretation: Performing Lab: Notes/Report: [facility] , White Blood Count 11.1 4.0-11.0 10 [...] 3/uL Performing Lab: see note ML - [facility] LB PREG QUANT HCG Reviewed date:08/03/2024 08:30:13 AM Interpretation: Performing Lab: Notes/Report: [facility] , HCG Quantitative 1656 15,000-200,000 6-8 WEEKS 1,000-50,000 4-5 WEEKS 10,000-100,000 2-3 MONTHS 10,000-100,000 5-6 WEEKS 100-5,000 2-3 WEEKS 50-500 1-2 WEEKS 5-50 0.2-1 WEEK 500-10,000 3-4 WEEKS Performing Lab: see note ML - [facility] LB PROF 14(COMP METB) Reviewed date:08/03/2024 08:30:13 AM Interpretation: Performing Lab: Notes/Report: [facility] , Sodium 140 136-145 mmol/L Potassium [...] Performing Lab: see note ML - [facility] US OB transvaginal Reviewed date:08/03/2024 08:30:13 AM Interpretation: Performing Lab: Notes/Report: Source Facility: [place] [address] Ultrasound Report Signed Patient: VIMAL FUNES MR#: [id number] : 2000 Acct:[id number] Age/Sex: 24 / F ADM Date: 08/02/24 Loc: ER Attending Dr: Ordering Physician: Kishan Cosby Date of Service: 08/02/24 Procedure(s): US OB transvaginal Accession Number(s): [id number] cc: JENNIFER SEE ; Kishan Cosby [place] [address] Patient Name: VIMAL FUNES MRN: [id number] date: 2000 Sex: F Assigned Patient Location: ER Current Patient Location: ER Accession/Order Number: [id number] Exam Date: 08/02/2024 19:17 Report Date: 08/02/2024 [...] M.D. Signed By: 08/02/242126 DD/ 23 TD/TT: Courseware Developer: CBC AUTO DIFF Reviewed date:08/10/2024 08:58:56 AM Interpretation: Performing Lab: Notes/Report: [facility] , White Blood Count 8.9 [...] Performing Lab: see note ML - [facility] US OB transvaginal Reviewed date:08/10/2024 08:58:56 AM Interpretation: Performing Lab: Notes/Report: Source Facility: [place] [address] Ultrasound Report Signed Patient: VIMAL FUNES MR#: [id number] : 2000 Acct:[id number] Age/Sex: 24 / F ADM Date: 08/10/24 Loc: SURGOUT Attending Dr: Mackenzie Rodriguez D.O. Ordering Physician: Mackenzie Rodriguez D.O. Date of Service: 08/10/24 Procedure(s): US OB transvaginal Accession Number(s): [id number] cc: JENNIFER SEE ; Mackenzie Rodriguez D.O. [place] [address] Patient Name: VIMAL FUNES MRN: [id number] date: 2000 Sex: F Assigned Patient Location: [facility] Current Patient Location: [facility] Accession/Order Number: [id number] Exam Date: 08/10/2024 08:10 Report Date: 08/10/2024 [...] M.D. Signed By: 08/10/2447 DD/ 3 TD/TT: Courseware Developer: PREG QUANT HCG Reviewed date:08/20/2024 11:36:34 AM Interpretation: Performing Lab: Notes/Report: [facility] , HCG Quantitative 6 500-10,000 3-4 WEEKS 5-50 0.2-1 WEEK 15,000-200,000 6-8 WEEKS 10,000-100,000 2-3 MONTHS 50-500 1-2 WEEKS 1,000-50,000 4-5 WEEKS 100-5,000 2-3 WEEKS 10,000-100,000 5-6 WEEKS Performing Lab: see note ML - [facility] LB PREG QUANT HCG Reviewed date:11/20/2024 01:38:35 PM Interpretation: Performing Lab: Notes/Report: [facility] , HCG Quantitative 6254 5-50 0.2-1 WEEK 10,000-100,000 2-3 MONTHS 500-10,000 3-4 WEEKS 100-5,000 2-3 WEEKS 15,000-200,000 6-8 WEEKS 10,000-100,000 5-6 WEEKS 50-500 1-2 WEEKS 1,000-50,000 4-5 WEEKS Performing Lab: see note - [facility] RUBELLA AB IGG Reviewed date:01/07/2025 01:05:16 PM Interpretation: Performing Lab: Notes/Report: [facility] , Rubella Antibodies, IgG 1.57 Immune >0.99 inde x Performed at: [facility] Immune >0.99 Equivocal 0.90 - 0.[address] [place] [address] [phone] Non-immune <0.90 Machine Former: Andrew Harris PhD, Phone: [phone] Performing Lab: see note [facility] HIV Ab/p24 Ag with Reflex Reviewed date:01/07/2025 01:05:16 PM Interpretation: Performing Lab: Notes/Report: [facility] , HIV Ab/p24 Ag Screen Non Reactive Non Reactive Performed at: [facility] HIV-1/HIV-2 antibodies and HIV-1 p24 antigen were NOT Machine Former: Andrew Harris PhD, Phone: [phone] HIV Negative [address] [place] [address] [phone] detected. There is no laboratory evidence of HIV infection. Performing Lab: see note - [facility] LB Rapid Plasma Reagin, Quant Reviewed date:01/07/2025 01:05:16 PM Interpretation: Performing Lab: Notes/Report: [facility] , Rapid Plasma Reagin, Quant Non Reactive NonRea<1:1 titer treated for syphilis infection. To screen for syphilis Treponema pallidum (Syphilis) Screening Eros (808533) or Machine Former: Andrew Harris PhD, Phone: [phone] treponema-specific assay should be utilized, such as RPR and Confirmatory Treponema pallidum Antibodies (353632). Rapid Plasma Reagin (RPR) Test With Reflex to Quantitative Please Note: This test does not meet current guidelines for Performed at: [address] [phone] infection, a reflex cascade that includes both RPR and a screening and diagnosis of syphilis. This test is intended for following treatment response in patients being Performing Lab: see note - [facility] LB HCV Antibody RFX to Quant PC R Reviewed date:01/07/2025 01:05:16 PM Interpretation: Performing Lab: Notes/Report: [facility] , HCV Ab Non Reactive Non Reactive Interpretation: Comment . suspected (which may be delayed in an immunocompromised Performed at: [address] [id number] Machine Former: Andrew Harris PhD, Phone: [phone] infection. individual), or other evidence exists to indicate HCV Not infected with HCV unless early or acute infection is Performing Lab: see note - [facility] LB HBsAg Screen Reviewed date:01/07/2025 01:05:16 PM Interpretation: Performing Lab: Notes/Report: [facility] , HBsAg Screen Negative Negative Machine Former: Andrew Harris PhD, Phone: [phone] Performed at: [address] [id number] Performing Lab: see note - [facility] LB CBC AUTO DIFF Reviewed date:04/29/2025 09:37:12 AM Interpretation: Performing Lab: Notes/Report: [facility] , White Blood Count 12.5 4.0-11.0 [...] Performing Lab: see note ML - [facility] LB Glucose 1 Hour Reviewed date:04/29/2025 09:37:12 AM Interpretation: Performing Lab: Notes/Report: [facility] , Glucose 1 Hour 171 <130 mg/dL Performing Lab: see note ML - [facility] LB BUN Reviewed date:05/06/2025 10:03:33 AM Interpretation: Performing Lab: Notes/Report: [facility] , Blood Urea Nitrogen 8.0 7.0-18.0 mg/dL Performing Lab: see note ML - [facility] LB CREATININE Reviewed date:05/06/2025 10:03:33 AM Interpretation: Performing Lab: Notes/Report: [facility] , Creatinine 0.37 0.55-1.02 mg/dL Estimated GFR ( Ashley >60 >=60 mL/min/1.73m 2 Estimated GFR (Non- Hortencia >60 >=60 mL/min/1.73m 2 Performing Lab: see note - [facility] LB LDH Reviewed date:05/06/2025 10:03:33 AM Interpretation: Performing Lab: Notes/Report: [facility] , Lactate Dehydrogenase 163 81-234 U/L Performing Lab: see note - [facility] LB SGOT Reviewed date:05/06/2025 10:03:33 AM Interpretation: Performing Lab: Notes/Report: [facility] , Aspartate Amino Transferase 23 15-37 U/L Performing Lab: see note - [facility] URIC ACID SERUM Reviewed date:05/06/2025 10:03:33 AM Interpretation: Performing Lab: Notes/Report: [facility] , Uric Acid 3.7 2.6-6.0 mg/dL Performing Lab: see note - [facility] Glucose Tolerance 3 Hour Reviewed date:05/06/2025 10:03:33 AM Interpretation: Performing Lab: Notes/Report: [facility] , Glucose Tolerance 3 Hour GLU FAST 108H (<95) Col: 05/04/25 0723 GLU 2HR 186H (<155) Col: 05/04/25 0927 GLU 1HR 234H (<180) Col: 05/04/25 0826 GLU 3HR 133 (<140) Col: 05/04/25 1028 Performing Lab: see note - [facility] US OB BPP w non-stress Reviewed date:05/06/2025 10:03:33 AM Interpretation: Performing Lab: Notes/Report: Source Facility: [facility]-[address] [place] [address] [place] [address] Ultrasound Report Signed Patient: VIMAL FUNES MR#: [id number] : 2000 Acct:[id number] Age/Sex: 25 / F ADM Date: 05/04/25 Loc: [facility] 250-[address]: Rossana Leach Ordering Physician: Rossana Leach Date of Service: 05/04/25 Procedure(s): US OB BPP w non-stress Accession Number(s): [id number] cc: Rossana Leach; JENNIFER SEE [place] [address] Patient Name: VIMAL FUNES MRN: [id number] date: 2000 Sex: F Assigned Patient Location: [facility] Current Patient Location: [facility] Accession/Order Number: [id number] Exam Date: 05/04/2025 12:08 Report Date: 05/04/2025 12:09 At the request of: ROSSANA LEACH Procedure: US OB BPP w non-stress Biophysical profile. Reason for exam: Gestational diabetes COMPARISON: None TECHNIQUE: Transabdominal imaging of the gravid uterus was obtained. FINDINGS: The internal combustion engine subassembler reports a BPP of 8 out of 8. DANYA is normal at 12.4 cm. heart rate 150 bpm. US/US OB BPP w non-stress IMPRESSION: BPP 8 out of 8. Impression dictated by: Bulmaro Arias Jr., D.O. 05/04/2025 12:09 PM Dictation Location: [place] [address] Electronically authenticated by: [id number] Y Date: 05/04/2025 12:09 Dictated By: Bulmaro Arias M.D. Signed By: 05/04/25 1212 DD/ 1209 TD/TT: Courseware Developer: US OB growth Reviewed date:05/06/2025 10:03:33 AM Interpretation: Performing Lab: Notes/Report: Source Facility: [place] [address] [place] [address] Ultrasound Report Signed Patient: VIMAL FUNES MR#: [id number] : 2000 Acct:[id number] Age/Sex: 25 / F ADM Date: 05/04/25 Loc: [facility] 250-[address]: Rossana Leach Ordering Physician: Rossana Leach Date of Service: 05/04/25 Procedure(s): US OB growth Accession Number(s): [id number] cc: Rossana Leach; JENNIFER SEE [place] [address] Patient Name: VIMAL FUNES MRN: [id number] date: 2000 Sex: F Assigned Patient Location: [facility] Current Patient Location: [facility] Accession/Order Number: [id number] Exam Date: 05/04/2025 12:06 Report Date: 05/04/2025 [...] Jr., DDarline 05/04/2025 12:08 PM Dictation [facility] Electronically authenticated by: [id number] Y Date: 05/04/2025 12:08 Dictated By: Bulmaro Arias M.D. Signed By: 05/04/25 1211 DD/ 1208 TD/TT: Courseware Developer: Total Protein 24 Hour Urine Reviewed date:05/07/2025 09:01:34 AM Interpretation: Performing Lab: Notes/Report: [facility] , Total Protein Urine Random <6.0 <=11.9 mg/dL Total Volume 24 Hour Urine 3700 Performing Lab: see note ML - [facility] US OB BPP w non-stress Reviewed date:05/13/2025 12:03:41 PM Interpretation: Performing Lab: Notes/Report: Source Facility: [facility]-[address] [place] [address] [place] [address] Ultrasound Report Signed Patient: VIMAL FUNES MR#: [id number] : 2000 Acct:[id number] Age/Sex: 25 / F ADM Date: 05/11/25 Loc: [facility] 253-[address]: Rossana Leach Ordering Physician: Rossana Leach Date of Service: 05/11/25 Procedure(s): US OB BPP w non-stress Accession Number(s): [id number] cc: Rossana Leach; JENNIFER SEE [facility] [address] [place] [address] Patient Name: VIMAL FUNES MRN: [id number] date: 2000 Sex: F Assigned Patient Location: [facility] Current Patient Location: [facility] Accession/Order Number: [id number] Exam Date: 05/11/2025 12:01 Report Date: 05/11/2025 12:02 At the request of: ROSSANA LEACH Procedure: US OB BPP w non-stress Biophysical profile. Reason for exam: Gestational diabetes COMPARISON: 05/04/2025 TECHNIQUE: Transabdominal imaging of the gravid uterus was obtained. FINDINGS: The internal combustion engine subassembler reports a BPP of 8 out of 8. DANYA is normal at 11.9 cm. heart rate 138 bpm. US/US OB BPP w non-stress IMPRESSION: BPP 8 out of 8. Impression dictated by: Bulmaro Arias Jr., D.O. 05/11/2025 12:02 PM Dictation Location: [place] [address] Electronically authenticated by: [id number] Y Date: 05/11/2025 12:02 Dictated By: Bulmaro Arias M.D. Signed By: 05/11/25 1204 DD/ 1202 TD/TT: Courseware Developer: [place] Reviewed date:05/20/2025 11:23:08 AM Interpretation: Performing Lab: Notes/Report: [facility] , Blood Urea Nitrogen 9.0 7.0-18.0 mg/dL Performing Lab: see note ML - [facility] LB CREATININE Reviewed date:05/20/2025 11:23:08 AM Interpretation: Performing Lab: Notes/Report: [facility] , Creatinine 0.38 0.55-1.02 mg/dL Estimated GFR ( Ashley >60 >=60 mL/min/1.73m 2 Estimated GFR (Non- Hortencia >60 >=60 mL/min/1.73m 2 Performing Lab: see note - [facility] LB PTT Reviewed date:05/20/2025 11:23:08 AM Interpretation: Performing Lab: Notes/Report: [facility] , Partial Thromboplastin Time 25.6 22.3-36.2 sec Performing Lab: see note ML - [facility] LB SGOT Reviewed date:05/20/2025 11:23:08 AM Interpretation: Performing Lab: Notes/Report: [facility] , Aspartate Amino Transferase 18 15-37 U/L Performing Lab: see note - [facility] URIC ACID SERUM Reviewed date:05/20/2025 11:23:08 AM Interpretation: Performing Lab: Notes/Report: [facility] , Uric Acid 4.0 2.6-6.0 mg/dL Performing Lab: see note - [facility] Prothrombin Time INR Reviewed date:05/20/2025 11:23:08 AM Interpretation: Performing Lab: Notes/Report: [facility] , Prothrombin Time 10.2 9.0-11.6 sec INR 0.96 2.5-3.5 RECURRENT THROMBOSIS 2.0-3.0 CONDITIONS NOT LISTED BELOW 2.5-3.5 FOR PROSTHETIC HEART VALVE REPLACEMENT DESIRED INR: Performing Lab: see note - [facility] US OB BPP w non-stress Reviewed date:05/20/2025 11:23:08 AM Interpretation: Performing Lab: Notes/Report: Source Facility: [facility]-[address] [place] [address] [place] [address] Ultrasound Report Signed Patient: VIMAL FUNES MR#: [id number] : 2000 Acct:[id number] Age/Sex: 25 / F ADM Date: 05/18/25 Loc: US Attending Dr: Rossana Leach Ordering Physician: Rossana Leach Date of Service: 05/18/25 Procedure(s): US OB BPP w non-stress Accession Number(s): [id number] cc: Rossana Leach; JENNIFER SEE [place] [address] Patient Name: VIMAL FUNES MRN: [id number] date: 2000 Sex: F Assigned Patient Location: [facility] Current Patient Location: Accession/Order Number: [id number] Exam Date: 05/18/2025 11:16 Report Date: 05/18/2025 [...] 05/18/2025 5:08 PM Dictation Location: [place] [address] Electronically authenticated by: [id number] Y Date: 05/18/2025 17:08 Dictated By: Heriberto Acharya M.D. Signed By: 05/18/252016 DD/ 07 TD/TT: Courseware Developer: Total Protein 24 Hour Urine Reviewed date:05/21/2025 08:48:02 AM Interpretation: Performing Lab: Notes/Report: [facility] , Total Protein Urine Random 6.7 <=11.9 mg/dL Total Volume 24 Hour Urine 2900 Total Protein 24 Hour Urine 194.3 <=149.1 mg/24hr Performing Lab: see note ML - [facility] US OB BPP w non-stress Reviewed date:05/28/2025 11:03:16 AM Interpretation: Performing Lab: Notes/Report: Source Facility: [place] [address] [address] [address] Ultrasound Report Signed Patient: VIMAL FUNES MR#: [id number] : 2000 Acct:[id number] Age/Sex: 25 / F ADM Date: 05/25/25 Loc: US Attending Dr: Rossana Leach Ordering Physician: Rossana Leach Date of Service: 05/25/25 Procedure(s): US OB BPP w non-stress Accession Number(s): [id number] cc: Rossana Leach; JENNIFER SEE [place] [address] Patient Name: VIMAL FUNES MRN: [id number] date: 2000 Sex: F Assigned Patient Location: [facility] Current Patient Location: Accession/Order Number: [id number] Exam Date: 05/25/2025 08:21 Report Date: 05/25/2025 [...] Acharya M.D. 05/25/2025 11:13 AM Dictation Location: [employer] Electronically authenticated by: [id number] Y Date: 05/25/2025 11:13 Dictated By: Heriberto Acharya M.D. Signed By: 05/25/25 1116 DD/ 111 TD/TT: Courseware Developer: US OB BPP w non-stress Reviewed date:06/03/2025 09:38:37 AM Interpretation: Performing Lab: Notes/Report: Source Facility: [place] [address] Ultrasound Report Signed Patient: VIMAL FUNES MR#: [id number] : 2000 Acct:[id number] Age/Sex: 25 / F ADM Date: 06/01/25 Loc: US Attending Dr: Rossana Leach Ordering Physician: Rossana Leach Date of Service: 06/01/25 Procedure(s): US OB BPP w non-stress Accession Number(s): [id number] cc: Rossana Leach; JENNIFER SEE [place] [address] Patient Name: VIMAL FUNES MRN: [id number] date: 2000 Sex: F Assigned Patient Location: US Current Patient Location: Accession/Order Number: [id number] Exam Date: 06/01/2025 10:59 Report Date: 06/01/2025 12:03 At the request of: ROSSANA LEACH Procedure: US OB BPP w non-stress Biophysical profile. Reason for exam: Gestational diabetes COMPARISON: 05/25/2025 TECHNIQUE: Transabdominal imaging of the gravid uterus was obtained. FINDINGS: The internal combustion engine subassembler reports a BPP of 8 out of 8. DNAYA is normal at 11.0 cm. Cardiac activity was visualized by the internal combustion engine subassembler per tech note. No heart rate was documented. US/US OB BPP w non-stress IMPRESSION: BPP 8 out of 8. Impression dictated by: Bulmaro Arias Jr., D.O. 06/01/2025 12:03 PM Dictation Location: [place] [address] Electronically authenticated by: [id number] Y Date: 06/01/2025 12:03 Dictated By: Bulmaro Arias M.D. Signed By: 06/01/25 1206 DD/ 120 TD/TT: Courseware Developer: US OB BPP w non-stress Reviewed date:06/10/2025 10:40:51 AM Interpretation: Performing Lab: Notes/Report: Source Facility: [place] [address] [place] [address] Ultrasound Report Signed Patient: VIMAL FUNES MR#: [id number] : 2000 Acct:[id number] Age/Sex: 25 / F ADM Date: 06/08/25 Loc: US Attending Dr: Rossana Leach Ordering Physician: Rossana Leach Date of Service: 06/08/25 Procedure(s): US OB BPP w non-stress Accession Number(s): [id number] cc: Rossana Leach; JENNIFER SEE [place] [address] Patient Name: VIMAL FUNES MRN: [id number] date: 2000 Sex: F Assigned Patient Location: [facility] Current Patient Location: Accession/Order Number: [id number] Exam Date: 06/08/2025 11:01 Report Date: 06/08/2025 [...] Knapp M.D. 06/08/2025 12:10 PM Dictation [facility] Electronically authenticated by: [id number] Y Date: 06/08/2025 12:10 Dictated By: Shivam Knapp D.O. Signed By: 06/08/25 1213 DD/ 1210 TD/TT: Courseware Developer: LDH Reviewed date:05/20/2025 11:23:08 AM Interpretation: Performing Lab: Notes/Report: [facility] , Lactate Dehydrogenase 147 81-234 U/L Performing Lab: see note ML - [facility] LB CBC AUTO DIFF Reviewed date:05/20/2025 11:23:08 AM Interpretation: Performing Lab: Notes/Report: [facility] , White Blood Count 15.0 4.0-11.0 [...] 10 3/uL Performing Lab: see note - [facility] LB Prothrombin Time INR Reviewed date:05/06/2025 10:03:33 AM Interpretation: Performing Lab: Notes/Report: [facility] , Prothrombin Time 10.1 9.0-11.6 sec INR 0.95 2.5-3.5 RECURRENT THROMBOSIS 2.5-3.5 FOR PROSTHETIC HEART VALVE REPLACEMENT 2.0-3.0 CONDITIONS NOT LISTED BELOW DESIRED INR: Performing Lab: see note - [facility] LB PTT Reviewed date:05/06/2025 10:03:33 AM Interpretation: Performing Lab: Notes/Report: [facility] , Partial Thromboplastin Time 25.7 22.3-36.2 sec Performing Lab: see note ML - [facility] LB CBC AUTO DIFF Reviewed date:05/06/2025 10:03:33 AM Interpretation: Performing Lab: Notes/Report: [facility] , White Blood Count 12.5 4.0-11.0 [...] Performing Lab: see note ML - [facility] LB US OB incomplete anatomy Reviewed date:03/25/2025 09:01:39 AM Interpretation: Performing Lab: Notes/Report: Source Facility: [facility]-[address] [place] [address] [place] [address] Ultrasound Report Signed Patient: VIMAL FUNES MR#: [id number] : 2000 Acct:[id number] Age/Sex: 24 / F ADM Date: 03/23/25 Loc: US Attending Dr: Mackenzie Rodriguez D.O. Ordering Physician: Mackenzie Rodriguez D.O. Date of Service: 03/23/25 Procedure(s): US OB incomplete anatomy Accession Number(s): [id number] cc: JENNIFER SEE ; Mackenzie Rodriguez D.O. [address] [address] Patient Name: VIMAL FUNES MRN: [id number] date: 2000 Sex: F Assigned Patient Location: Current Patient Location: Accession/Order Number: [id number] Exam Date: 03/25/2025 08:23 Report Date: 03/25/2025 [...] Brown M.D. 03/25/2025 8:25 AM Dictation Location: [place] [address] Electronically authenticated by: [id number] Y Date: 03/25/2025 08:25 Dictated By: Meghana Brown M.D. Signed By: 03/25/25826 DD/ 4 TD/TT: Courseware Developer: US OB anatomy Reviewed date:03/14/2025 10:39:54 AM Interpretation: Performing Lab: Notes/Report: Source Facility: [address] [address] Ultrasound Report Signed Patient: VIMAL FUNES MR#: [id number] : 2000 Acct:[id number] Age/Sex: 24 / F ADM Date: 03/08/25 Loc: US Attending Dr: Mackenzie Rodriguez D.O. Ordering Physician: Mackenzie Rodriguez D.O. Date of Service: 03/08/25 Procedure(s): US OB anatomy Accession Number(s): [id number] cc: JENNIFER SEE ; Mackenzie Rodriguez D.O. [place] [address] Patient Name: VIMAL FUNES MRN: [id number] date: 2000 Sex: F Assigned Patient Location: US Current Patient Location: US Accession/Order Number: [id number] Exam Date: 03/08/2025 20:31 Report Date: 03/08/2025 [...] 03/08/2025 8:36 PM Dictation Location: [place] [address] Electronically authenticated by: [id number] Y Date: 03/08/2025 20:36 Dictated By: Shivam Knapp D.O. Signed By: 03/08/252037 DD/ 35 TD/TT: Courseware Developer: US OB cervical length Reviewed date:03/14/2025 10:39:54 AM Interpretation: Performing Lab: Notes/Report: Source Facility: [place] [address] Ultrasound Report Signed Patient: VIMAL FUNES MR#: [id number] : 2000 Acct:[id number] Age/Sex: 24 / F ADM Date: 03/08/25 Loc: US Attending Dr: Mackenzie Rodriguez D.O. Ordering Physician: Mackenzie Rodriguez D.O. Date of Service: 03/08/25 Procedure(s): US OB cervical length Accession Number(s): [id number] cc: JENNIFER SEE ; Mackenzie Rodriguez D.O. [place] [address] Patient Name: VIMAL FUNES MRN: [id number] date: 2000 Sex: F Assigned Patient Location: Current Patient Location: Accession/Order Number: [id number] Exam Date: 03/08/2025 20:31 Report Date: 03/08/2025 [...] Knapp M.D. 03/08/2025 8:36 PM Dictation Location: [facility] Electronically authenticated by: [id number] Y Date: 03/08/2025 20:36 Dictated By: Shivam Knapp D.O. Signed By: 03/08/252037 DD/ 35 TD/TT: Courseware Developer: Jaguar PONCEima HPV,Age Gdln Reviewed date:02/25/2025 03:13:18 PM Interpretation: Performing Lab: Notes/Report: SPATULA-ALONE ENDOCERVIX [facility] , Age Gdln ACOG Testing Note . Age Algo ACOG Yris... 21-29 01 Jenise Byrne MD, Clinician Provided Cytology Information L-Low Normal,H-High Normal,LL-Alert Low,HH-Alert High <-Panic Low,>-Panic High,A-Abnormal,AA-Crit ical Abnormal TESTS RESULT FLAG UNITS REF RANGE LAB Source.............Endo cervix FLAG LEGEND: No. of containers..01 ThinPrep Vial Performed at: 01 =[facility] [address] [place] [address] IGP, rfx Aptima HPV ASCU Note . NEGATIVE FOR INTRAEPITHELIAL LESION OR MALIGNANCY. occur. Machine Former: Jenise Byrne MD, Phone: [phone] <-Panic Low,>-Panic High,A-Abnormal,AA-Crit ical Abnormal should not be used as the sole means of detecting cervical Performed at: [facility] The Pap smear is a screening test designed to aid in the uterine cervix. It is not a diagnostic procedure and This liquid based ThinPrep(R) pap test was screened with cancer. Both false-positive and false-negative reports do Performed at: =[facility] L-Low Normal,H-High Normal,LL-Alert Low,HH-Alert High Whitney Alvarez, Bacteriology Technician (ASCP) Satisfactory for evaluation. Endocervical and/or squamous metaplastic Performed at: cells (endocervical component) are present. Note: Note [address], [place] [id number] . [address] [place] [address], [place] [address] Machine Former: Jenise Byrne MD, Phone: [phone] Performed by: Test Methodology: Note 02 TESTS RESULT FLAG UNITS REF RANGE LAB The HPV DNA reflex criteria were not met with this specimen Specimen adequacy: 02 Jenise Byrne MD, FLAG LEGEND: detection of premalignant and malignant conditions of the result therefore, no HPV testing was performed. DIAGNOSIS: 02 the use of an image guided system. [address] [facility] [place], [place] [id number] Performing Lab: see note - [facility] LB Box Test Reviewed date:01/07/2025 01:05:16 PM Interpretation: Performing Lab: Notes/Report: Ebix BOX [facility] , BOX Test Sent Out Ebix BOX Test Reference Lab UNITY BOX Test Date Sent 01-05-25 Performing Lab: see note - [facility] LB Urine Culture, Routine Reviewed date:01/07/2025 01:05:16 PM Interpretation: Performing Lab: Notes/Report: [facility] , Urine Culture, Routine See Below For Report Urine Culture, Routine Urine Culture, Routine Mixed urogenital tami Urine Culture, Routine Urine Culture, Routine 50,000-100,000 colony forming units per mL Urine Culture, Routine Urine Culture, Routine Performed at: [facility] Urine Culture, Routine Urine Culture, Routine [address] [place], [place] [id number] Urine Culture, Routine Urine Culture, Routine Machine Former: Andrew Harris PhD, Phone: [phone] Urine Culture, Routine Performing Lab: see note SEE REPORT - [employer] Id information not found for OBX-specific music video producer legend [facility] LB Type and Screen Reviewed date:01/07/2025 01:05:16 PM Interpretation: Performing Lab: Notes/Report: [facility] , Blood Type A Positive Antibody Screen NEGATIVE GLYCOHEMOGLOBIN A1C Reviewed date:01/07/2025 01:05:16 PM Interpretation: Performing Lab: Notes/Report: [facility] , Glycohemoglobin A1C 5.0 4.5-6.2 % > 7.0 ADA RECOMMENDED LIMIT 4.0 - 6.0 ADA THERAPEUTIC TARGET < 7.0 ACTION SUGGESTED Estimated Average Glucose 97 Performing Lab: see note ML - [facility] LB DRUG SCREEN RAPID (URINE) Reviewed date:01/07/2025 01:05:16 PM Interpretation: Performing Lab: Notes/Report: [facility] , Cannabinoid Screen Urine NEGATIVE NEGATIVE [...] ng/mL Performing Lab: see note ML - [facility] LB CBC AUTO DIFF Reviewed date:01/07/2025 01:05:16 PM Interpretation: Performing Lab: Notes/Report: [facility] , White Blood Count 9.2 4.0-11.0 [...] 3/uL Performing Lab: see note ML - [facility] PREG QUANT HCG Reviewed date:11/22/2024 08:59:16 AM Interpretation: Performing Lab: Notes/Report: [facility] Quantitative [address] 5-50 0.2-1 WEEK 100-5,000 2-3 WEEKS 10,000-100,000 2-3 MONTHS 1,000-50,000 4-5 WEEKS 500-10,000 3-4 WEEKS 15,000-200,000 6-8 WEEKS 10,000-100,000 5-6 WEEKS 50-500 1-2 WEEKS Performing Lab: see note ML - [facility] PREG QUANT HCG Reviewed date:08/10/2024 08:58:56 AM Interpretation: Performing Lab: Notes/Report: [facility] Quantitative 240 50-500 1-2 WEEKS 1,000-50,000 4-5 WEEKS 15,000-200,000 6-8 WEEKS 10,000-100,000 2-3 MONTHS 100-5,000 2-3 WEEKS 500-10,000 3-4 WEEKS 5-50 0.2-1 WEEK 10,000-100,000 5-6 WEEKS Performing Lab: see note ML - [facility] Urine Culture, Routine Reviewed date:07/23/2024 08:22:00 AM Interpretation: Performing Lab: Notes/Report: [facility] , Urine Culture, Routine See Below For Report Urine Culture, Routine Urine Culture, Routine Mixed urogenital tami Urine Culture, Routine Urine Culture, Routine 10,000-25,000 colony forming units per mL Urine Culture, Routine Urine Culture, Routine Performed at: [facility] Urine Culture, Routine Urine Culture, Routine [address] [place], [place] [id number] Urine Culture, Routine Urine Culture, Routine Machine Former: Andrew Harris PhD, Phone: [phone] Urine Culture, Routine Performing Lab: see note SEE REPORT - Vp Of Technology Id information not found for OBX-specific music video producer legend [facility] LB HBsAg Screen Reviewed date:07/23/2024 08:22:00 AM Interpretation: Performing Lab: Notes/Report: [facility] , HBsAg Screen Negative Negative Machine Former: Andrew Harris PhD, Phone: [phone] [address] [place], [place] [phone] Performed at: [facility] Performing Lab: see note [facility] LB HCV Antibody RFX to Quant PC R Reviewed date:07/23/2024 08:22:00 AM Interpretation: Performing Lab: Notes/Report: [facility] , HCV Ab Non Reactive Non Reactive Interpretation: Comment . individual), or other evidence exists to indicate HCV infection. suspected (which may be delayed in an immunocompromised Not infected with HCV unless early or acute infection is Performing Lab: see note [facility] LB Rapid Plasma Reagin, Quant Reviewed date:07/23/2024 08:22:00 AM Interpretation: Performing Lab: Notes/Report: [facility] , Rapid Plasma Reagin, Quant Non Reactive NonRea<1:1 titer Performed at: [facility] infection, a reflex cascade that includes both RPR and a treponema-specific assay should be utilized, such as Treponema pallidum (Syphilis) Screening Eros (969725) or screening and diagnosis of syphilis. This test is Machine Former: Andrew Harris PhD, Phone: [phone] Please Note: This test does not meet current guidelines for Rapid Plasma Reagin (RPR) Test With Reflex to Quantitative RPR and Confirmatory Treponema pallidum Antibodies (005998). [address] [place], [place] [phone] intended for following treatment response in patients being treated for syphilis infection. To screen for syphilis Performing Lab: see note [facility] HIV Ab/p24 Ag with Reflex Reviewed date:07/23/2024 08:22:00 AM Interpretation: Performing Lab: Notes/Report: [facility] , HIV Ab/p24 Ag Screen Non Reactive Non Reactive Machine Former: Andrew Harris PhD, Phone: [phone] detected. There is no laboratory evidence of HIV infection. HIV-1/HIV-2 antibodies and HIV-1 p24 antigen were NOT HIV Negative Performed at: [facility] [address] [place], [place] [phone] Performing Lab: see note [facility] RUBELLA AB IGG Reviewed date:07/23/2024 08:22:00 AM Interpretation: Performing Lab: Notes/Report: [facility] , Rubella Antibodies, IgG 1.57 Immune >0.99 inde x Non-immune <0.90 Equivocal 0.90 - 0.99 Performed at: [facility] Immune >0.[address] [place] [id number] Machine Former: Andrew Harris PhD, Phone: [phone] Performing Lab: see note [facility] LB GLYCOHEMOGLOBIN A1C Reviewed date:07/23/2024 08:22:00 AM Interpretation: Performing Lab: Notes/Report: [facility] , Glycohemoglobin A1C 4.9 4.5-6.2 % > 7.0 ACTION SUGGESTED ADA RECOMMENDED LIMIT 4.0 - 6.0 ADA THERAPEUTIC TARGET < 7.0 Estimated Average Glucose 94 Performing Lab: see note - [facility] LB DRUG SCREEN RAPID (URINE) Reviewed date:07/23/2024 08:22:00 AM Interpretation: Performing Lab: Notes/Report: REEFLEX IF POSITIVE [facility] , Cannabinoid Screen Urine NEGATIVE NEGATIVE [...] (Methamphetamine): 500 ng/mL Performing Lab: see note - [facility] LB CBC AUTO DIFF Reviewed date:07/23/2024 08:22:00 AM Interpretation: Performing Lab: Notes/Report: [facility] , White Blood Count 10.6 4.0-11.0 [...] 3/uL Performing Lab: see note ML - [facility] LB Reason For Referral No Information Medications [...] ast year? No Points 0 Interpretation Negative Plan Of Treatment No Information Insurance Providers Payer Name Payer Address Payer Phone Subscriber Number Group Number Insured Name Patient Relationship to Insured Coverage Start Date Coverage End Date AN[employer]M ACCESS PPO PLUS LOCAL PLAN [address] [place] [phone] [id number] Vimal Funes Self - patient is the insured [employer] [place] [employer] [address] [place] [address] [phone] [id number] Vimal Funes Self - patient is the insured Medical (General) History Medical History History ICD Code lead poisoning Surgical History Surgery Date(Month/Year) ear tubes
--- OUTSIDE RECORDS SUMMARY | 2025-06-12 16:07 | XMS_ITS | Encounter Summary ---
Author Organization [facility] Address [address] [place] [address] Care Team Providers Care Ethnic Origins Teacher Name Role Phone Unallocated, Noms Provider Primary Care Provi krissy Encounter Details Date Type Department Care Team (Late st Contact Info) Description 06/04/2025 External Result Encounter [facility] [place] [facility] [address] [place] [address] Mackenzie Rodriguez DO [facility] [address] [place], [facility]11 Social [...] 06/19/2025 2:30 PM EDT Routine [facility] [address] [place] [address] Mackenzie Rodriguez DO [address] [place] [address] [address] [place] [address] documented as of this encounter Procedures Procedure Name Priority Date/Time Associated Diagnosis Comments US OB 14+ WEEKS ANATOMY SCAN 06/04/2025 4:20 PM EDT documented in this encounter Results * US OB 14+ weeks anatomy scan (06/04/2025 4:20 PM EDT) Anatomical Region Laterality Modality Body Ultrasound 06/04/2025 4:20 PM EDT Narrative 06/04/2025 4:20 PM EDT THIS EXAM WAS PERFORMED AT [facility] NAME: MARIN CELIS : 2000 SEX: F Accession Number: [id number] ORDERING PHYSICIAN: CHRIS MARTIN REFERRING PHYSICIAN: MACKENZIE RODRIGUEZ Coding ----- --------- Procedures 93590: Ultrasound, uterus, real time with image documentation, and maternal evaluation plus detailed anatomic examination, transabdominal approach;single or first gestation 36891: Doppler velocimetry, ; umbilical artery Indication ----- [...] EFW (oz) 4 oz EFW by: Hadlock (IQU-ON-SQ-FL) Extended Tibia 49.0 mm 29w 3d <1% Khanh Foot 56.8 mm <1% Chitty Counselor Education Professor 4.6 mm CM 6.2 mm 19% Nicolaides [...] bone. Maxilla. Mandible. Orbits. Heart/Thorax: LVOT view. 7-hpgvjp-bkoozem view. Situs. Ductal arch view. Cardiac position. [...] 4.2 cm. Recommendations ----- --------- Please see M documentation from today. Subsequent follow up or other follow up as clinically determined by primary OB provider unless otherwise specified by M. Results forwarded to ordering provider so they can follow up with the patient as necessary. The copy-to physician of this order is MACKENZIE Victoria The ordering physician of this order is CHRIS Patterson Procedure Note Radiology, Radiologist, - 06/04/2025 THIS EXAM WAS PERFORMED AT [facility] NAME: MARIN CELIS : 2000 SEX: F Accession Number: [id number] ORDERING PHYSICIAN: CHRIS MARTIN REFERRING PHYSICIAN: MACKENZIE RODRIGUEZ Coding ----- --------- Procedures 85358: Ultrasound, uterus, real time with imagedocumentation, and maternal evaluation plus detailed anatomic examination, transabdominalapproach;single or first gestation 74421: Doppler velocimetry, ; umbilical artery Indication ----- [...] EFW (oz) 4 oz EFW by: Hadlock (FGJ-UG-UT-FL) Extended Tibia 49.0 mm 29w 3d <1% Khanh Foot 56.8 mm <1% Chitty Counselor Education Professor 4.6 mm CM 6.2 mm 19% Nicolaides [...] bone. Maxilla. Mandible. Orbits. Heart/Thorax: LVOT view. 3-oimuon-tujlkei view. Situs. Ductal arch view.Cardiac position. Cardiac [...] 4.2 cm. Recommendations ----- --------- Please see M documentation from today. Subsequent follow up or [...] on filedocumented in this encounter Care Teams Ethnic Origins Teacher Relationship Specialty Start Date End Date Unallocated, Noms Gilda, [address] [place] [address] PCP - General Family Medicine 08/03/24 documented as of this encounter
--- OUTSIDE RECORDS SUMMARY | 2025-06-12 16:07 | XMS_ITS | Encounter Summary ---
Author Organization [facility] Address [address] [place] [address] Care Team Providers Care Log Haul Operator Name Role Phone Unallocated, Noms Provider Primary Care Provi krissy Encounter Details Date Type Department Care Team (Late st Contact Info) Description 06/05/2025 Abstract [facility] PANG [facility] [place] [address] Jose Rodriguez DO [address] [place], [facility]11 Social History Tobacco Use Types Packs/Day [...] 2:30 PM EDT Routine ARJUN PANG [address] [place] [address] Jose Rodriguez DO [address] [facility] [address] [place] [address] documented as of this encounter Visit Diagnoses Not on filedocumented in this encounter Care Teams Log Haul Operator Relationship Specialty Start Date End Date Unallocated, Noms Provider, [place] [address] PCP - General Family Medicine 08/03/24 documented as of this encounter
--- OUTSIDE RECORDS SUMMARY | 2025-06-12 16:07 | XMS_ITS | Encounter Summary ---
Author Organization [facility] Address [address] [place] [address] Care Team Providers Care Wet Primer Powder Blender Name Role Phone Unallocated, Noms Provider Primary Care Provi krissy Encounter Details Date Type Department Care Team (Late st Contact Info) Description 06/01/2025 Clinisync Result Encounter [facility] External Department Unsolicited Collin Leach PA [address] [place], [facility]11 Social History Tobacco Use [...] PM EDT Routine [facility] [facility] [address] [facility] [place] [id number] Jose Rodriguez DO [address] [place], [place] [id number] documented as of this encounter Procedures Procedure Name Priority Date/Time Associated Diagnosis Comments US OB BPP W NON-STRESS 06/01/2025 12:03 PM EDT documented in this encounter Results * US OB BPP W NON-STRESS (06/01/2025 12:03 PM EDT) Anatomical Region Laterality Modality Other 06/01/2025 12:0 3 PM EDT Narrative 06/01/2025 12:06 [place] [address] Ultrasound Report Signed Patient: VIMAL PIZANO MR#: [id number] : 2000 Acct:[id number] Age/Sex: 25 / F ADM Date: 06/01/25 Loc: US Attending Dr: Collin Leach Ordering Physician: Collin Leach Date of Service: 06/01/25 Procedure(s): US OB BPP w non-stress Accession Number(s): [id number] cc: Collin Leach; LUIS SEE [address] [address] Patient Name: VIMAL PIZANO MRN: [id number] date: 2000 Sex: F Assigned Patient Location: US Current Patient Location: Accession/Order Number: [id number] Exam Date: 06/01/2025 10:59 Report Date: 06/01/2025 12:03 At the request of: COLLIN LEAHC Procedure: US OB BPP w non-stress Biophysical profile. Reason for exam: Gestational diabetes COMPARISON: 05/25/2025 TECHNIQUE: Transabdominal imaging of the gravid uterus was obtained. FINDINGS: The safety specialist reports a BPP of 8 out of 8. DANYA is normal at 11.0 cm. Cardiac activity was visualized by the safety specialist per tech note. No heart rate was documented. US/US OB BPP w non-stress IMPRESSION: BPP 8 out of 8. Impression dictated by: Bulmaro Arias Jr., D.OGene 06/01/2025 12:03 PM Dictation Location: [employer] Electronically authenticated by: [id number] Y Date: 06/01/2025 12:03 Dictated By: Bulmaro Arias M.D. Signed By: 06/01/25 1206 DD/ 1203 TD/TT: Textile Chemist: Procedure Note Radiology, Radiologist, MD - 06/01/2025 [place] [address] Ultrasound Report Signed Patient: VIMAL PIZANO MMR#: [id number] : 2000Acct:[id number] Age/Sex: FADM Date: 06/01/25 Loc: US Attending Dr: Collin Leach Ordering Physician: Coliln Leach Date of Service: 06/01/25 Procedure(s): US OB BPP w non-stress Accession Number(s): [id number] cc: Collin Leach; LUIS SEE [place] [address] Patient Name: VIMAL PIZANO MRN: [id number] date: 2000 Sex: F Assigned Patient Location: US Current Patient Location: Accession/Order Number: [id number] Exam Date: 06/01/2025 10:59 Report Date: 06/01/2025 12:03 At the request of: COLLIN LEACH Procedure: US OB BPP w non-stress Biophysical profile. Reason for exam: Gestational diabetes COMPARISON: 05/25/2025 TECHNIQUE: Transabdominal imaging of the gravid uterus was obtained. FINDINGS: The safety specialist reports a BPP of 8 out of 8. DANYA is normal at11.0 cm. Cardiac activity was visualized by the safety specialist per tech note. No heart rate was documented. US/US OB BPP w non-stress IMPRESSION: BPP 8 out of 8. Impression dictated by: Bulmaro Arias Jr., D.O. 06/01/2025 12:03 PM Dictation Location: [facility] Electronically authenticated by: [id number] Y Date: 512:03 Dictated By: Bulmaro Arias M.D. Signed By:06/01/25 1206 DD/ 1203 TD/TT: Textile Chemist: us Collin [facility] Final Result documented in this encounter Visit Diagnoses Not on filedocumented in this encounter Care Teams Wet Primer Powder Blender Relationship Specialty Start Date End Date Unallocated, Noms Gilda, [address] [place] [address] PCP - General Family Medicine 08/03/24 documented as of this encounter
--- OUTSIDE RECORDS SUMMARY | 2025-06-12 16:07 | XMS_ITS | Encounter Summary ---
Author Organization [facility] Address [address] [place] [address] Care Team Providers Care Propulsion Machinery Service Engineer Name Role Phone Unallocated, Noms Provider Primary Care Provi krissy Encounter Details Date Type Department Care Team (Late st Contact Info) Description 03/06/2025 Orders Only ARJUN PANG [address] [place] [address] Kavitha Almanza MA Social History Tobacco [...] [place] [address] Jose Rodriguez DO [address] [place], [place] [id number] documented as of this encounter Procedures Procedure Name Priority Date/Time Associated Diagnosis Comments PAP SMEAR Routine 02/20/2025 12:00 AM EDT documented in this encounter Results * Pap Smear (02/20/2025 12:00 AM EDT) Swab Cervical swab / Unknown us [facility] CYTOLOGY ORDERABLES Final Re sult EXTERNAL LAB documented in this encounter Visit Diagnoses Not on filedocumented in this encounter Care Teams Propulsion Machinery Service Engineer Relationship Specialty Start Date End Date Unallocated, Noms Provider, [address] [place] [address] PCP - General Family Medicine 08/03/24 documented as of this encounter
[2025-06-12 16:10] VITALS: BP 138/81; PULSE 83
--- OUTSIDE RECORDS SUMMARY | 2025-06-12 17:16 | XMS_ITS | CCD ---
Author Organization [facility] Care Team Providers Care Product Management Consultant Name Role Phone MICHAEL ., DR MANN [...] Unavailable MISC, DR DOMINIQUE Primary Care Unavailable ROCK TAVERN, DR COCO Danielle Consulting Unavailable MICHAEL ., DR MANN Consulting Unavailable MICHAEL ., DR MANN Admitting Unavailable MICHAEL ., DR MANN Attending Unavailable MISC, DR DOMINIQUE Primary Care Unavailable MICHAEL ., DR MANN Consulting Unavailable MICHAEL ., DR MANN Admitting Unavailable MICHAEL ., DR MANN Attending Unavailable MISC, DR DOMINIQUE Primary Care Unavailable ROCK TAVERN, DR COCO Danielle Consulting Unavailable MICHAEL ., [...] NO FAMILY, PHYSICIAN Primary Care Unavailable Michael, Jsoe Attending Unavailable Michael, Jose Admitting Unavailable Unavailable [...] MICHAEL, JOSE R Referring Unavailable MICHAEL, JOSE R Referring Unavailable Medications [...] Glucose Monitoring Suppl (D-Care Glucometer) w/Device kit (20 sources) Start: 05-08-2025 End: 05-08-2026 Blood Glucose [...] Active isopropyl alcohol 0.7 ml/ml medicated pad (20 sources) Start: 05-08-2025 Alcohol Swabs (Alcohol Prep [...] Hypertension complicating ; childbirth and the puerperium (15 sources) -induced hypertension; Translations: [Gestational [-induced] hypertension [...] [32 weeks gestation of ] 05-28-2025 Episodic Residual codes; unclassified (2 sources) Gestation period, 34 weeks; Translations: [34 weeks gestation of ] 06-12-2025 Episodic Spontaneous (2 sources) Miscarriage; Translations: [Complete [...] ] Onset: 05-01-2022 Episodic Unclassified (1 source) [facility] S[facility]F DIS/COND COMPL ; Translations: [OT SPCF DIS/COND COMPL ] Onset: 04-27-2022 Urinary tract infections (5 sources) Urinary tract infection, site not specified; Translations: [UTI SITE NOT SPECIFIED] Onset: 05-10-2022 Episodic Viral infection (1 source) Viral infection, unspecified; Translations: [VIRAL INFECTION UNSPECIFIED] Onset: 07-07-2022 Episodic Results Test Name Value Interpretation Reference Range Facility Urinalysis macro (dipstick) panel (U)on 06-12-2025 Bilirubin, UA Negative Negative - 4(70) +++ mg/dL [facility] Blood, UA Negative Negative - 50 Jason/mcL [facility] Clarity, UA Clear [facility] re Color, UA Yellow [facility] Glucose, UA Positive Negative - 1999(110) ++++ mg/dL [facility] Interpretation and review of laboratory results Abnormal [facility] Ketones, UA Negative Negative - 160(16) ++++ mg/dL [facility] Leukocytes, UA Negative Negative - 500+++ Carlos/mcL [facility] Nitrite, UA Negative Negative - Positive [facility] pH, UA 6.5 5 - 9 [facility] Protein, UA Negative Negative - 1999(20) ++++ mg/dL [facility] Spec Grav, UA 1.015 1 - 1.03 [facility] Urobilinogen, UA 1.0 0.2 - 12 mg/dL [facility] US OB BPP W NON-STRESS on 06-08-2025 [place] [address] Ultrasound Report Signed Patient: VIMAL FUNES MR#: [id number] : 2000 Acct:[id number] Age/Sex: 25 / F ADM Date: 06/08/25 Loc: US Attending Dr: Rossana Ramos Ordering Physician: Rossana Ramos Date of Service: 06/08/25 Procedure(s): US OB BPP w non-stress Accession Number(s): [id number] cc: JENNIFER Watkins [address] [address] Patient Name: VIMAL FUNES MRN: [facility]:[id number] date: 2000 Sex: F Assigned Patient Location: [facility] Current Patient Location: Accession/Order Number: [id number] Exam Date: 06/08/2025 11:01 Report Date: 06/08/2025 12:10 At the request of: ROSSANA RAMOS Procedure: US OB BPP w non-stress Ultrasound [...] Knapp M.D. 06/08/2025 12:10 PM Dictation Location: [place] [address] Electronically authenticated by: [id number] Y Date: 06/08/2025 12:10 Dictated By: Shivam Knapp D.O. Signed By: 06/08/25 1213 DD/ 1210 TD/TT: Bar Machine Operator: [facility] Radiology, Radiologist, - 06/08/2025 [place] [address] Ultrasound Report Signed Patient: VIMAL FUNES MR#: [id number] : 2000 Acct:[id number] Age/Sex: 25 / F ADM Date: 06/08/25 Loc: US Attending Dr: Rossana Ramos Ordering Physician: Rossana Ramos Date of Service: 06/08/25 Procedure(s): US OB BPP w non-stress Accession Number(s): [id number] cc: JENNIFER Watkins [address] [address] Patient Name: VIMAL FUNES MRN: [facility]:[id number] date: 2000 Sex: F Assigned Patient Location: [facility] Current Patient Location: Accession/Order Number: [id number] Exam Date: 06/08/2025 11:01 Report Date: 06/08/2025 12:10 At the request of: ROSSANA RAMOS Procedure: US OB BPP w non-stress Ultrasound [...] Knapp M.D. 06/08/2025 12:10 PM Dictation Location: [facility] English Electronically authenticated by: [id number] Y Date: 06/08/2025 12:10 Dictated By: Shivam Knapp D.O. Signed By: 06/08/25 1213 DD/ 1210 TD/TT: Bar Machine Operator: [facility] Radiology Study observation (narrative) [facility] [employer] US OB BPP W NON-STRESS Ordered By: Radiologist Radiology on 06-08-2025 [facility] [employer] Work Phone: US OB BPP W NON-STRESS on 06-01-2025 [place] [id number] Ultrasound Report Signed Patient: VIMAL FUNES MR#: [id number] : 2000 Acct:[id number] Age/Sex: 25 / F ADM Date: 06/01/25 Loc: US Attending Dr: Rossana Ramos Ordering Physician: Rossana Ramos Date of Service: 06/01/25 Procedure(s): US OB BPP w non-stress Accession Number(s): [id number] cc: Rossana Ramos; JENNIFER SEE [place] [id number] Patient Name: VIMAL FUNES MRN: [facility]:[id number] date: 2000 Sex: F Assigned Patient Location: US Current Patient Location: Accession/Order Number: [id number] Exam Date: 06/01/2025 10:59 Report Date: 06/01/2025 12:03 At the request of: ROSSANA RAMOS Procedure: US OB BPP w non-stress Biophysical profile. Reason for exam: Gestational diabetes COMPARISON: 05/25/2025 TECHNIQUE: Transabdominal imaging of the gravid uterus was obtained. FINDINGS: The amusement or recreation card checker reports a BPP of 8 out of 8. DANYA is normal at 11.0 cm. Cardiac activity was visualized by the amusement or recreation card checker per tech note. No heart rate was documented. US/US OB BPP w non-stress IMPRESSION: BPP 8 out of 8. Impression dictated by: Bulmaro Arias Jr., D.O. 06/01/2025 12:03 PM Dictation Location: [place] [address] Electronically authenticated by: [id number] Y Date: 06/01/2025 12:03 Dictated By: Bulmaro Arias M.D. Signed By: 06/01/25 1206 DD/ 1203 TD/TT: Bar Machine Operator: [facility] Radiology, Radiologist, MD - 06/01/2025 [place] [id number] Ultrasound Report Signed Patient: VIMAL FUNES MR#: [id number] : 2000 Acct:[id number] Age/Sex: 25 / F ADM Date: 06/01/25 Loc: US Attending Dr: Rossana Ramos Ordering Physician: Rossana Ramos Date of Service: 06/01/25 Procedure(s): US OB BPP w non-stress Accession Number(s): [id number] cc: Rossana Ramos; JENNIFER SEE The [address] [address] Patient Name: VIMAL FUNES MRN: [facility]:[id number] date: 2000 Sex: F Assigned Patient Location: US Current Patient Location: Accession/Order Number: [id number] Exam Date: 06/01/2025 10:59 Report Date: 06/01/2025 12:03 At the request of: ROSSANA RAMOS Procedure: US OB BPP w non-stress Biophysical profile. Reason for exam: Gestational diabetes COMPARISON: 05/25/2025 TECHNIQUE: Transabdominal imaging of the gravid uterus was obtained. FINDINGS: The amusement or recreation card checker reports a BPP of 8 out of 8. DANYA is normal at 11.0 cm. Cardiac activity was visualized by the amusement or recreation card checker per tech note. No heart rate was documented. US/US OB BPP w non-stress IMPRESSION: BPP 8 out of 8. Impression dictated by: Bulmaro Arias Jr., D.O. 06/01/2025 12:03 PM Dictation Location: [place] Electronically authenticated by: [id number] Y Date: 06/01/2025 12:03 Dictated By: Bulmaro Arias M.D. Signed By: 06/01/25 1206 DD/ 1203 TD/TT: Bar Machine Operator: [facility] Radiology Study observation (narrative) [facility] US OB BPP W NON-STRESS Ordered By: Radiologist Radiology on 06-01-2025 [facility]HyperBranch Medical Technologycar e Work Phone: Urinalysis macro (dipstick) panel (U)on 05-28-2025 Bilirubin, UA Negative Negative - 4(70) +++ mg/dL [facility] Blood, UA Negative Negative - 50 Jason/mcL [facility] Clarity, UA Clear [facility] re Color, UA Yellow [facility] [employer] e Glucose, UA Negative Negative - 1999(110) ++++ mg/dL [facility] Interpretation and review of laboratory results Normal [facility] Ketones, UA Negative Negative - 160(16) ++++ mg/dL [facility] Leukocytes, UA Negative Negative - 500+++ Carlos/mcL [facility] Nitrite, UA Negative Negative - Positive [facility] pH, UA 6.5 5 - 9 [facility] [employer] e Protein, UA Negative Negative - 2000(20) ++++ mg/dL [facility] Spec Grav, UA 1.005 1 - 1.03 [facility] Urobilinogen, UA 1.0 0.2 - 12 mg/dL [facility] US OB BPP W NON-STRESS on 05-25-[address] [address] Ultrasound Report Signed Patient: VIMAL FUNES MR#: [id number] : 2000 Acct:[id number] Age/Sex: 25 / F ADM Date: 05/25/25 Loc: US Attending Dr: Rossana Ramos Ordering Physician: Rossana Ramos Date of Service: 05/25/25 Procedure(s): US OB BPP w non-stress Accession Number(s): [id number] cc: Rossana Ramos; JENNIFER SEE [address] [address] Patient Name: VIMAL FUNES MRN: [facility]:[id number] date: 2000 Sex: F Assigned Patient Location: [facility] Current Patient Location: Accession/Order Number: [id number] Exam Date: 05/25/2025 08:21 Report Date: 05/25/2025 [...] Acharya M.D. 05/25/2025 11:13 AM Dictation Location: [place] [address] Electronically authenticated by: [id number] Y Date: 05/25/2025 11:13 Dictated By: Heriberto Acharya M.D. Signed By: 05/25/25 1116 DD/ 1113 TD/TT: Bar Machine Operator: [facility] Radiology, Radiologist, - 05/25/[address] [address] Ultrasound Report Signed Patient: VIMAL FUNES MR#: [id number] : 2000 Acct:[id number] Age/Sex: 25 / F ADM Date: 05/25/25 Loc: US Attending Dr: Rossana Ramos Ordering Physician: Rossana Ramos Date of Service: 05/25/25 Procedure(s): US OB BPP w non-stress Accession Number(s): [id number] cc: Rossana Ramos; JENNIFER SEE [address] [address] Patient Name: VIMAL FUNES MRN: [id number] date: 2000 Sex: F Assigned Patient Location: [facility] Current Patient Location: Accession/Order Number: [id number] Exam Date: 05/25/2025 08:21 Report Date: 05/25/2025 [...] Acharya M.D. 05/25/2025 11:13 AM Dictation Location: [place] [address] Electronically authenticated by: [id number] Y Date: 05/25/2025 11:13 Dictated By: Heriberto Acharya M.D. Signed By: 05/25/25 1116 DD/ 1113 TD/TT: Bar Machine Operator: [facility] Radiology Study observation (narrative) [facility] US OB BPP W NON-STRESS Ordered By: Radiologist Radiology on 05-25-2025 [facility] Work Phone: Urinalysis macro (dipstick) panel (U)on 05-22-2025 Bilirubin, UA Negative Negative - 4(70) +++ mg/dL [facility] Blood, UA Negative Negative - 50 Jason/mcL [facility] Clarity, UA Clear [facility] re Color, UA Yellow [facility] e Glucose, UA Negative Negative - 1999(110) ++++ mg/dL [facility] Interpretation and review of laboratory results Normal [facility] Ketones, UA Negative Negative - 160(16) ++++ mg/dL [facility] Leukocytes, UA Negative Negative - 500+++ Carlos/mcL [facility] Nitrite, UA Negative Negative - Positive [facility] pH, UA 6 5 - 9 [facility] e Protein, UA Negative Negative - 1999(20) ++++ mg/dL [facility] Spec Grav, UA 1.01 1 - 1.03 [facility] Urobilinogen, UA 0.2 0.2 - 12 mg/dL [facility] TOTAL PROTEIN 24 HOUR UR INEon 05-20-2025 Interpretation and review of laboratory results Abnormal [facility] Protein (U) [Mass/Vol] 6.7 mg/dL NINF - 11.9 mg/dL [facility]H TOTAL PROTEIN 24 HOUR URINE 194.3 High [facility] TOTAL VOLUME 24 HOUR URINE 2900 mL/24hr [facility] ALL CBC WITH AUTO DIFFon BASOPHILS ABSOLUTE AUTO 0 [facility] Basophils/100 WBC (Bld) 0.1 % Low 0.2 - 2.0 % [facility] Eosinophils/100 WBC (Bld) 1.7 % 0.9 - 7.0 % [facility] Erythrocyte distribution width (RBC) [Ratio] 12.7 % 11.0 - 15.0 % [facility] Hematocrit (Bld) [Volume fraction] 38.1 % 36.0 - 48.0 % [facility] Hemoglobin (Bld) [Mass/Vol] 13.3 g/dL 12.0 - 16.0 g/dL [facility] IMMATURE GRANULOCYTES ABS AUTO 0.06 High [facility] [...] US OB BPP W NON-STRESS on 05-18-[address] [address] Ultrasound Report Signed Patient: VIMAL FUNES MR#: [id number] : 2000 Acct:[id number] Age/Sex: 25 / F ADM Date: 05/18/25 Loc: US Attending Dr: Rossana Ramos Ordering Physician: Rossana Ramos Date of Service: 05/18/25 Procedure(s): US OB BPP w non-stress Accession Number(s): [id number] cc: Rossana Ramos; JENNIFER SEE [address] [address] Patient Name: VIMAL FUNES MRN: [facility]:[id number] date: 2000 Sex: F Assigned Patient Location: [facility] Current Patient Location: Accession/Order Number: [id number] Exam Date: 05/18/2025 11:16 Report Date: 05/18/2025 [...] Acharya M.D. 05/18/2025 5:08 PM Dictation Location: [place] [address] Electronically authenticated by: [id number] Y Date: 05/18/2025 17:08 Dictated By: Heriberto Acharya M.D. Signed By: 05/18/252016 DD/ 07 TD/TT: Bar Machine Operator: [facility] Radiology, Radiologist, - 05/18/2025 [place] [address] Ultrasound Report Signed Patient: VIMAL FUNES MR#: [id number] : 2000 Acct:[id number] Age/Sex: 25 / F ADM Date: 05/18/25 Loc: US Attending Dr: Rossana Ramos Ordering Physician: Rossana Ramos Date of Service: 05/18/25 Procedure(s): US OB BPP w non-stress Accession Number(s): [id number] cc: JENNIFER Watkins The [address] [address] Patient Name: VIMAL FUNES MRN: [facility]:[id number] date: 2000 Sex: F Assigned Patient Location: [facility] Current Patient Location: Accession/Order Number: [id number] Exam Date: 05/18/2025 11:16 Report Date: 05/18/2025 [...] Acharya M.D. 05/18/2025 5:08 PM Dictation Location: [place] [address] Electronically authenticated by: [id number] Y Date: 05/18/2025 17:08 Dictated By: Heriberto Acharya M.D. Signed By: 05/18/252016 DD/ 07 TD/TT: Bar Machine Operator: [facility] [employer] Radiology Study observation (narrative) [facility] US OB BPP W NON-STRESS Ordered By: Radiologist Radiology on 05-18-2025 [facility] Work Phone: Glucose random or fasting- P OCTOrdered By: Sheridan Smallwood on 05-13-2025 External Glucose Fasting Or Random (Fbs) 80 [facility] [employer] [facility] US OB BPP W NON-STRESS on 05-11-2025 [place] [address] Ultrasound Report Signed Patient: VIMAL FUNES MR#: [id number] : 2000 Acct:[id number] Age/Sex: 25 / F ADM Date: 05/11/25 Loc: [facility] 253-[address]: Rossana Ramos Ordering Physician: Rossana Ramos Date of Service: 05/11/25 Procedure(s): US OB BPP w non-stress Accession Number(s): [id number] cc: Rossana Ramos; JENNIFER SEE [address] [address] Patient Name: VIMAL FUNES MRN: [facility]:[id number] date: 2000 Sex: F Assigned Patient Location: [facility] Current Patient Location: [facility] Accession/Order Number: [id number] Exam Date: 05/11/2025 12:01 Report Date: 05/11/2025 12:02 At the request of: ROSSANA RAMOS Procedure: US OB BPP w non-stress Biophysical profile. Reason for exam: Gestational diabetes COMPARISON: 05/04/2025 TECHNIQUE: Transabdominal imaging of the gravid uterus was obtained. FINDINGS: The amusement or recreation card checker reports a BPP of 8 out of 8. DANYA is normal at 11.9 cm. heart rate 138 bpm. US/US OB BPP w non-stress IMPRESSION: BPP 8 out of 8. Impression dictated by: Bulmaro Arias Jr., D.O. 05/11/2025 12:02 PM Dictation Location: [place] [address] Electronically authenticated by: [id number] Y Date: 05/11/2025 12:02 Dictated By: Bulmaro Arias M.D. Signed By: 05/11/25 1204 DD/ 1202 TD/TT: Bar Machine Operator: [facility] Radiology, Radiologist, - 05/11/2025 [place] [address] Ultrasound Report Signed Patient: VIMAL FUNES MR#: [id number] : 2000 Acct:[id number] Age/Sex: 25 / F ADM Date: 05/11/25 Loc: [facility] 253-[address]: Rossana Ramos Ordering Physician: Rossana Ramos Date of Service: 05/11/25 Procedure(s): US OB BPP w non-stress Accession Number(s): [id number] cc: JENNIFER Watkins [address] [address] Patient Name: VIMAL FUNES MRN: [facility]:[id number] date: 2000 Sex: F Assigned Patient Location: [facility] Current Patient Location: [facility] Accession/Order Number: [id number] Exam Date: 05/11/2025 12:01 Report Date: 05/11/2025 12:02 At the request of: ROSSANA RAMOS Procedure: US OB BPP w non-stress Biophysical profile. Reason for exam: Gestational diabetes COMPARISON: 05/04/2025 TECHNIQUE: Transabdominal imaging of the gravid uterus was obtained. FINDINGS: The amusement or recreation card checker reports a BPP of 8 out of 8. DANYA is normal at 11.9 cm. heart rate 138 bpm. US/US OB BPP w non-stress IMPRESSION: BPP 8 out of 8. Impression dictated by: Bulmaro Arias Jr., D.O. 05/11/2025 12:02 PM Dictation Location: [place] [address] Electronically authenticated by: [id number] Y Date: 05/11/2025 12:02 Dictated By: Bulmaro Arias M.D. Signed By: 05/11/25 1204 DD/ 1202 TD/TT: Bar Machine Operator: [facility] Radiology Study observation (narrative) [facility] US OB BPP W NON-STRESS Ordered By: Radiologist Radiology on 05-11-2025 [facility] Work Phone: [facility] TOTAL PROTEIN 24 HOUR UR INEon 05-06-2025 TOTAL PROTEIN URINE RANDOM <6.0 NINF - 11.9 mg/dL [facility] [employer] TOTAL VOLUME 24 HOUR URINE 3700 mL/24hr [facility] [employer] [facility] [employer] e 2nd hr Glucose Tolerance 100 gm loadon 05-04-2025 Glucose Tolerance Test 2 Hour [address] [facility] ALL CBC WITH AUTO DIFFon BASOPHILS ABSOLUTE AUTO 0 [facility] Basophils/100 WBC (Bld) 0.2 % 0.2 - 2.0 % [facility] Eosinophils/100 WBC (Bld) 2.6 % 0.9 - 7.0 % [facility] Erythrocyte distribution width (RBC) [Ratio] 12.7 % 11.0 - 15.0 % [facility] Hematocrit (Bld) [Volume fraction] 39.5 % 36.0 - 48.0 % [facility] Hemoglobin (Bld) [Mass/Vol] 13.7 g/dL 12.0 - 16.0 g/dL [facility] IMMATURE GRANULOCYTES ABS AUTO 0.05 High [facility] Immature granulocytes/100 WBC (Bld) 0.4 % 0.0 - 0.5 % [facility] Interpretation and review of laboratory results Abnormal [facility] LYMPHOCYTES ABSOLUTE AUTO 1.6 [facility] Lymphocytes/100 WBC (Bld) 12.6 % Low 20.5 - 60.0 % [facility] MCH (RBC) [Entitic mass] 31.9 pg 26.7 - 34.0 pg [facility] MCHC (RBC) [Mass/Vol] 34.7 g/dL 29.9 - 35.2 g/dL [facility] MCV (RBC) [Entitic vol] 92.1 fL 81.0 - 99.0 fL [facility] MONOCYTES ABSOLUTE AUTO 0.6 [facility] Monocytes/100 WBC (Bld) 5 % 1.7 - 12.0 % [facility] NEUTROPHILS ABSOLUTE AUTO 9.9 High [facility] Neutrophils/100 WBC (Bld) 79.2 % High 43.0 - 75.0 % [facility] Platelet mean volume (Bld) [Entitic vol] 11 fL 9.5 - 13.5 fL [facility] TBH EO # 0.3 [facility] TBH PLT 226 [facility] TB RBC 4.29 [facility] TB WBC 12.5 High [facility] Glucose tolerance, 1 houron 05-04-2025 Glucose Tolerance Test 1 Hour 234 [facility] Glucose tolerance, 3 hourson 05-04-2025 Glucose Tolerance Test 3 Hour 133 [facility] Glucose, tolerance fastingon 05-04-2025 Glucose Tolerance Test Fasting 108 [facility] No Panel Informationon 05-04 [facility] US OB BPP W NON-STRESS on 05-04-[address] [address] Ultrasound Report Signed Patient: VIMAL FUNES MR#: [id number] : 2000 Acct:[id number] Age/Sex: 25 / F ADM Date: 05/04/25 Loc: [facility] 250-[address]: Rossana Ramos Ordering Physician: Rossana Ramos Date of Service: 05/04/25 Procedure(s): US OB BPP w non-stress Accession Number(s): [id number] cc: Rossana Ramos; JENNIFER SEE The [place] [id number] Patient Name: VIMAL FUNES MRN: [facility]:[id number] date: 2000 Sex: F Assigned Patient Location: [facility] Current Patient Location: [facility] Accession/Order Number: [id number] Exam Date: 05/04/2025 12:08 Report Date: 05/04/2025 12:09 At the request of: ROSSANA RAMOS Procedure: US OB BPP w non-stress Biophysical profile. Reason for exam: Gestational diabetes COMPARISON: None TECHNIQUE: Transabdominal imaging of the gravid uterus was obtained. FINDINGS: The amusement or recreation card checker reports a BPP of 8 out of 8. DANYA is normal at 12.4 cm. heart rate 150 bpm. US/US OB BPP w non-stress IMPRESSION: BPP 8 out of 8. Impression dictated by: Bulmaro Arias Jr., D.O. 05/04/2025 12:09 PM Dictation Location: [place] [address] Electronically authenticated by: [id number] Y Date: 05/04/2025 12:09 Dictated By: Bulmaro Arias M.D. Signed By: 05/04/25 1212 DD/ 1209 TD/TT: Bar Machine Operator: [facility] Radiology, Radiologist, MD - 05/04/2025 [place] [address] Ultrasound Report Signed Patient: VIMAL FUNES MR#: [id number] : 2000 Acct:[id number] Age/Sex: 25 / F ADM Date: 05/04/25 Loc: [facility] 250-[address]: Rossana Ramos Ordering Physician: Rossana Ramos Date of Service: 05/04/25 Procedure(s): US OB BPP w non-stress Accession Number(s): [id number] cc: JENNIFER Watkins [address] [address] Patient Name: VIMAL FUNES MRN: [id number] date: 2000 Sex: F Assigned Patient Location: [facility] Current Patient Location: [facility] Accession/Order Number: [id number] Exam Date: 05/04/2025 12:08 Report Date: 05/04/2025 12:09 At the request of: ROSSANA RAMOS Procedure: US OB BPP w non-stress Biophysical profile. Reason for exam: Gestational diabetes COMPARISON: None TECHNIQUE: Transabdominal imaging of the gravid uterus was obtained. FINDINGS: The amusement or recreation card checker reports a BPP of 8 out of 8. DANYA is normal at 12.4 cm. heart rate 150 bpm. US/US OB BPP w non-stress IMPRESSION: BPP 8 out of 8. Impression dictated by: Bulmaro Arias Jr., D.O. 05/04/2025 12:09 PM Dictation Location: [facility] Electronically authenticated by: [id number] Y Date: 05/04/2025 12:09 Dictated By: Bulmaro Arias M.D. Signed By: 05/04/25 1212 DD/ 1209 TD/TT: Bar Machine Operator: [facility] Radiology Study observation (narrative) [facility] US OB BPP W NON-STRESS Ordered By: Radiologist Radiology on 05-04-2025 [facility] [employer] Work Phone: US OB GROWTHon 05-04-2025 [place] [id number] Ultrasound Report Signed Patient: VIMAL FUNES MR#: [id number] : 2000 Acct:[id number] Age/Sex: 25 / F ADM Date: 05/04/25 Loc: [facility] 250-[address]: Rossana Ramos Ordering Physician: Rossana Ramos Date of Service: 05/04/25 Procedure(s): US OB growth Accession Number(s): [id number] cc: JENNIFER Watkins [place] [id number] Patient Name: VIMAL FUNES MRN: [facility]:[id number] date: 2000 Sex: F Assigned Patient Location: [facility] Current Patient Location: [facility] Accession/Order Number: [id number] Exam Date: 05/04/2025 12:06 Report Date: 05/04/2025 [...] Jr., D.O. 05/04/2025 12:08 PM Dictation Location: [facility] [employer] Electronically authenticated by: [id number] Y Date: 05/04/2025 12:08 Dictated By: Bulmaro Arias M.D. Signed By: 05/04/25 1211 DD/ 1208 TD/TT: Bar Machine Operator: [facility] Radiology, Radiologist, - 05/04/2025 [place] [address] Ultrasound Report Signed Patient: VIMAL FUNES MR#: [id number] : 2000 Acct:[id number] Age/Sex: 25 / F ADM Date: 05/04/25 Loc: [place] [address]: Rossana Ramos Ordering Physician: Rossana Ramos Date of Service: 05/04/25 Procedure(s): US OB growth Accession Number(s): [id number] cc: Rossana Ramos; JENNIFER SEE [place] [address] Patient Name: VIMAL FUNES MRN: [facility]:[id number] date: 2000 Sex: F Assigned Patient Location: [facility] Current Patient Location: [facility] Accession/Order Number: [id number] Exam Date: 05/04/2025 12:06 Report Date: 05/04/2025 [...] Jr., D.O. 05/04/2025 12:08 PM Dictation Location: [place] [address] Electronically authenticated by: [id number] Y Date: 05/04/2025 12:08 Dictated By: Bulmaro Arias M.D. Signed By: 05/04/25 1211 DD/ 1208 TD/TT: Bar Machine Operator: [facility] Radiology Study observation (narrative) [facility] OB GROWTHOrdered By: Jeimy ologwilly Radiology on 05-04-2025 [facility] Work Phone: Urinalysis macro (dipstick) panel (U)on 04-30-2025 Bilirubin, UA Negative Negative - 4(70) +++ mg/dL [facility] Blood, UA Negative Negative - 50 Jason/mcL [facility] Clarity, UA Clear [facility] re Color, UA Yellow [facility] [employer] Glucose, UA Positive Negative - 2000(110) ++++ mg/dL [facility] Interpretation and review of laboratory results Abnormal [facility] Ketones, UA Negative Negative - 160(16) ++++ mg/dL [facility] Leukocytes, UA Positive Negative - 500+++ Carlos/mcL [facility] Nitrite, UA Negative Negative - Positive [facility] pH, UA 6 5 - 9 [facility] Protein, UA Negative Negative - 1999(20) ++++ mg/dL [facility] Spec Grav, UA 1.01 1 - 1.03 [facility] Urobilinogen, UA 1.0 0.2 - 12 mg/dL [facility] ALL CBC WITH AUTO DIFFon BASOPHILS ABSOLUTE AUTO 0 [facility] Basophils/100 WBC (Bld) 0.2 % 0.2 - 2.0 % [facility] Eosinophils/100 WBC (Bld) 2.2 % 0.9 - 7.0 % [facility] Erythrocyte distribution width (RBC) [Ratio] 12.9 % 11.0 - 15.0 % [facility] Hematocrit (Bld) [Volume fraction] 40 % 36.0 - 48.0 % [facility] Hemoglobin (Bld) [Mass/Vol] 13.6 g/dL 12.0 - 16.0 g/dL [facility] IMMATURE GRANULOCYTES ABS AUTO 0.04 High [facility] Immature granulocytes/100 WBC (Bld) 0.3 % 0.0 - 0.5 % [facility] Interpretation and review of laboratory results Abnormal [facility] LYMPHOCYTES ABSOLUTE AUTO 1.4 [facility] Lymphocytes/100 WBC (Bld) 10.8 % Low 20.5 - 60.0 % [facility] MCH (RBC) [Entitic mass] 31.7 pg 26.7 - 34.0 pg [facility] MCHC (RBC) [Mass/Vol] 34 g/dL 29.9 - 35.2 g/dL [facility] MCV (RBC) [Entitic vol] 93.2 fL 81.0 - 99.0 fL [facility] MONOCYTES ABSOLUTE AUTO 0.5 [facility] Monocytes/100 WBC (Bld) 4.3 % 1.7 - 12.0 % [facility] NEUTROPHILS ABSOLUTE AUTO 10.2 High [facility] Neutrophils/100 WBC (Bld) 82.2 % High 43.0 - 75.0 % [facility] Platelet mean volume (Bld) [Entitic vol] 10.6 fL 9.5 - 13.5 fL [facility] TBH EO # 0.3 [facility] e TBH PLT 202 [facility] TB[facility] RBC 4.29 [facility] TBH WBC 12.5 High [facility] Glucose 1h post 50g loadon 0 04-27-2025 Glucose, 1 hr PP 50GM dose 171 [facility] No Panel Informationon 04-27 [facility] Urinalysis macro (dipstick) panel (U)on 04-25-2025 Bilirubin, UA Negative Negative - 4(70) +++ mg/dL [facility] Blood, UA Negative Negative - 50 Jason/mcL [facility] Clarity, UA Clear [facility] re Color, UA Yellow [facility] Glucose, UA Negative Negative - 1999(110) ++++ mg/dL [facility] Healthcare Interpretation and review of laboratory results Normal [facility] Healthcare Ketones, UA Negative Negative - 160(16) ++++ mg/dL [facility] Healthcare Leukocytes, UA Negative Negative - 500+++ Carlos/mcL [facility] Nitrite, UA Negative Negative - Positive [facility] pH, UA 6.5 5 - 9 [facility] Protein, UA Negative Negative - 1999(20) ++++ mg/dL [facility] Spec Grav, UA 1.01 1 - 1.03 [facility] care Urobilinogen, UA 0.2 0.2 - 12 mg/dL [facility] Urinalysis macro (dipstick) panel (U)on 04-11-2025 Bilirubin, UA Negative Negative - 4(70) +++ mg/dL [facility] Healthcare Blood, UA Negative Negative - 50 Jason/mcL [facility] Clarity, UA Clear [facility] re Color, UA Yellow [facility] Glucose, UA Negative Negative - 1999(110) ++++ mg/dL [facility] Interpretation and review of laboratory results Normal [facility] Healthcare Ketones, UA Negative Negative - 160(16) ++++ mg/dL [facility] Leukocytes, UA Negative Negative - 500+++ Carlos/mcL [facility] Nitrite, UA Negative Negative - Positive [facility] pH, UA 7 5 - 9 [facility] Protein, UA Negative Negative - 1999(20) ++++ mg/dL [facility] Spec Grav, UA 1.005 1 - 1.03 [facility] Urobilinogen, UA 1.0 0.2 - 12 mg/dL [facility] US OB INCOMPLETE ANATOMYon 0 03-25-[address] [address] Ultrasound Report Signed Patient: VIMAL FUNES MR#: [id number] : 2000 Acct:[id number] Age/Sex: 24 / F ADM Date: 03/23/25 Loc: US Attending Dr: Jose Rodriguez D.O. Ordering Physician: Jose Rodriguez D.O. Date of Service: 03/23/25 Procedure(s): US OB incomplete anatomy Accession Number(s): [id number] cc: JENNIFER SEE ; Jose Rodriguez D.O. [place] [id number] Patient Name: VIMAL FUNES MRN: [id number]:[id number] date: 2000 Sex: F Assigned Patient Location: US Current Patient Location: US Accession/Order Number: [id number] Exam Date: 03/25/2025 08:23 Report Date: 03/25/2025 [...] Brown M.D. 03/25/2025 8:25 AM Dictation Location: [place] [address] Electronically authenticated by: [id number] Y Date: 03/25/2025 08:25 Dictated By: Meghana Brown M.D. Signed By: 03/25/25826 DD/ 4 TD/TT: Bar Machine Operator: [facility] Radiology, Radiologist, MD - 03/25/2025 [place] [address] Ultrasound Report Signed Patient: VIMAL FUNES MR#: [id number] : 2000 Acct:[id number] Age/Sex: 24 / F ADM Date: 03/23/25 Loc: US Attending Dr: Jose Rodriguez D.O. Ordering Physician: Jose Rodriguez D.O. Date of Service: 03/23/25 Procedure(s): US OB incomplete anatomy Accession Number(s): [id number] cc: JENNIFER SEE ; Jose Rodriguez D.O. [place] [address] Patient Name: VIMAL FUNES MRN: [facility]:[id number] date: 2000 Sex: F Assigned Patient Location: US Current Patient Location: US Accession/Order Number: [id number] Exam Date: 03/25/2025 08:23 Report Date: 03/25/2025 [...] Brown M.D. 03/25/2025 8:25 AM Dictation Location: [place] [address] Electronically authenticated by: [id number] Y Date: 03/25/2025 08:25 Dictated By: Meghana Brown M.D. Signed By: 03/25/25826 DD/ 4 TD/TT: Bar Machine Operator: [facility] Radiology Study observation (narrative) [facility] US OB INCOMPLETE ANATOMYOrde red By: Radiologist Radiology on 03-25-2025 [facility] Work Phone: Urinalysis macro (dipstick) panel (U)on 03-14-2025 Bilirubin, UA Negative Negative - 4(70) +++ mg/dL [facility] Blood, UA Negative Negative - 50 Jason/mcL [facility] Clarity, UA Clear [facility] re Color, UA Yellow [facility] [employer] Glucose, UA Negative Negative - 1999(110) ++++ mg/dL [facility] Interpretation and review of laboratory results Normal [facility] Ketones, UA Negative Negative - 160(16) ++++ mg/dL [facility] Leukocytes, UA Negative Negative - 500+++ Carlos/mcL [facility] Nitrite, UA Negative Negative - Positive [facility] pH, UA 7 5 - 9 [facility] Protein, UA Negative Negative - 1999(20) ++++ mg/dL [facility] Spec Grav, UA 1.01 1 - 1.03 [facility] Urobilinogen, UA 0.2 0.2 - 12 mg/dL [facility] No Panel InformationOrdered By: Radiologist Radiology on 03-08-2025 [facility] [employer] Work Phone: No Panel Informationon 03-08 Radiology Study observation (narrative) [facility] US OB ANATOMYon 03-08-[address] [address] Ultrasound Report Signed Patient: VIMAL FUNES MR#: [id number] : 2000 Acct:[id number] Age/Sex: 24 / F ADM Date: 03/08/25 Loc: US Attending Dr: Jose Rodriguez D.O. Ordering Physician: Jose Rodriguez D.O. Date of Service: 03/08/25 Procedure(s): US OB anatomy Accession Number(s): [id number] cc: JENNIFER SEE ; Jose Rodriguez D.O. [address] [address] Patient Name: VIMAL FUNES MRN: [facility]:[id number] date: 2000 Sex: F Assigned Patient Location: US Current Patient Location: US Accession/Order Number: [id number] Exam Date: 03/08/2025 20:31 Report Date: 03/08/2025 [...] Knapp M.D. 03/08/2025 8:36 PM Dictation Location: [place] [address] Electronically authenticated by: [id number] Y Date: 03/08/2025 20:36 Dictated By: Shivam Knapp D.O. Signed By: 03/08/252037 DD/ 35 TD/TT: Bar Machine Operator: [facility] Radiology, Radiologist, - 03/08/2025 [place] [address] Ultrasound Report Signed Patient: VIMAL FUNES MR#: [id number] : 2000 Acct:[id number] Age/Sex: 24 / F ADM Date: 03/08/25 Loc: US Attending Dr: Jose Rodriguez D.O. Ordering Physician: Jose Rodriguez D.O. Date of Service: 03/08/25 Procedure(s): US OB anatomy Accession Number(s): [id number] cc: JENNIFER SEE ; Jose Rodriguez D.O. [place] [phone] Patient Name: VIMAL FUNES MRN: [facility]:[id number] date: 2000 Sex: F Assigned Patient Location: US Current Patient Location: US Accession/Order Number: [id number] Exam Date: 03/08/2025 20:31 Report Date: 03/08/2025 [...] Knapp M.D. 03/08/2025 8:36 PM Dictation Location: [employer] Electronically authenticated by: [id number] Y Date: 03/08/2025 20:36 Dictated By: Shivam Knapp D.O. Signed By: 03/08/252037 DD/ 35 TD/TT: Bar Machine Operator: [facility] US OB CERVICAL LENGTHon 02-[address] [address] Ultrasound Report Signed Patient: VIMAL FUNES MR#: [id number] : 2000 Acct:[id number] Age/Sex: 24 / F ADM Date: 03/08/25 Loc: US Attending Dr: Jose Rodriguez D.O. Ordering Physician: Jose Rodriguez D.O. Date of Service: 03/08/25 Procedure(s): US OB cervical length Accession Number(s): [id number] cc: JENNIFER SEE ; Jose Rodriguez D.O. [place] [phone] Patient Name: VIMAL FUNES [facility]N: [facility]:[id number] date: 2000 Sex: F Assigned Patient Location: US Current Patient Location: US Accession/Order Number: [id number] Exam Date: 03/08/2025 20:31 Report Date: 03/08/2025 [...] Knapp M.D. 03/08/2025 8:36 PM Dictation Location: [place] [address] Electronically authenticated by: [id number] Y Date: 03/08/2025 20:36 Dictated By: Shivam Knapp D.O. Signed By: 03/08/252037 DD/ 35 TD/TT: Bar Machine Operator: [facility] Radiology, Radiologist, - 03/08/2025 [place] [address] Ultrasound Report Signed Patient: VIMAL FUNES MR#: [id number] : 2000 Acct:[id number] Age/Sex: 24 / F ADM Date: 03/08/25 Loc: US Attending Dr: Jose Rodriguez D.O. Ordering Physician: Jose Rodriguez D.O. Date of Service: 03/08/25 Procedure(s): US OB cervical length Accession Number(s): [id number] cc: JENNIFER SEE ; Jose Rodriguez D.O. [place] [phone] Patient Name: VIMAL FUNES MRN: [facility]:[id number] date: 2000 Sex: F Assigned Patient Location: US Current Patient Location: US Accession/Order Number: [id number] Exam Date: 03/08/2025 20:31 Report Date: 03/08/2025 [...] Knapp M.D. 03/08/2025 8:36 PM Dictation Location: [employer] Electronically authenticated by: [id number] Y Date: 03/08/2025 20:36 Dictated By: Shivam Knapp D.O. Signed By: 03/08/252037 DD/ 35 TD/TT: Bar Machine Operator: ARJUN Martinez IGP,APTIMA HPV,AGE GDLNon AGE GDLN ACOG TESTING Note . RUTH Martinez Comment on above: TESTS RESULT FLAG UN ITS REF RANGE LAB Clinician Provided Cytology Information Source.............Endocervix No. of containers..01 ThinPrep Vial Age Algo ACOG Yris... -25 10 FLAG LEGEND: L-Low Normal,H-High Normal,LL-Alert Low,HH-Alert High <-Panic Low,>-Panic High,A-Abnormal,AA-Critical Abnormal Performed at: 01 =G [facility] [place] [address] Jenise Byrne MD, IGP, RFX APTIMA HPV ASCU Note . [facility] Comment on above: TESTS RESULT FLAG U NITS REF RANGE LAB DIAGNOSIS: 02 NEGATIVE FOR INTRAEPITHELIAL LESION OR MALIGNANCY. Specimen adequacy: 02 Satisfactory for evaluation. Endocervical and/or squamous metaplastic cells (endocervical component) are present. Performed by: 02 Whitney Alvarez, Quarry Extraction Worker ([facility]) . 02 Note: Note 02 The [...] High,A-Abnormal,AA-Critical Abnormal Performed at: 02 [facility] [address] [place] [address] Jenise Byrne MD, Performed at: =G - [facility] [address], [place] [id number] Associate Principal: Jenise Byrne MD, Phone: [phone] Performed at: [address], [place] [id number] Associate Principal: Jenise Byrne MD, Phone: [phone] SPATULA-ALONE ENDOCERVIX [facility] RECURRENT VAGINITIS (HTRX)on [...] TRICHOMONAS VAGINALIS Not detected N [facility] Urinalysis macro (dipstick) panel (U)on 02-20-2025 Bilirubin, UA Negative Negative - 4(70) +++ mg/dL [facility] Blood, UA Negative Negative - 50 Jason/mcL [facility] Clarity, UA Clear [facility], UA Yellow [facility] Glucose, UA Negative Negative - 2000(110) ++++ mg/dL [facility] Interpretation and review of laboratory results Abnormal [facility] Ketones, UA Negative Negative - 160(16) ++++ mg/dL [facility] Leukocytes, UA Negative Negative - 500+++ Carlos/mcL [facility] Nitrite, UA Negative Negative - Positive [facility] pH, UA 7 5 - 9 [facility] Protein, UA Negative Negative - 1999(20) ++++ mg/dL [facility] Spec Grav, UA 1.01 1 - 1.03 [facility] Urobilinogen, UA 0.2 0.2 - 12 mg/dL [facility] Unlisted Lab Teston 01-16-20 [facility] Urinalysis macro (dipstick) panel (U)on 01-14-2025 Bilirubin, UA Negative Negative - 4(70) +++ mg/dL [facility] Blood, UA Positive Negative - 50 Jason/mcL [facility] Comment on above: trace-intact Clarity, UA Clear [facility] re Color, UA Yellow [facility] Glucose, UA Negative Negative - 1999(110) ++++ mg/dL [facility] Interpretation and review of laboratory results Abnormal [facility] Ketones, UA Negative Negative - 160(16) ++++ mg/dL [facility] Leukocytes, UA Negative Negative - 500+++ Carlos/mcL [facility] Nitrite, UA Negative Negative - Positive [facility] pH, UA 6 5 - 9 [facility] Protein, UA Negative Negative - 1999(20) ++++ mg/dL [facility] Spec Grav, UA 1.005 1 - 1.03 [facility] Urobilinogen, UA 0.2 0.2 - 12 mg/dL [facility] Free Cell DNA (Non-Pro Medica Send Out)on 01-13-2025 [facility] ALL CBC WITH AUTO DIFFon BASOPHILS ABSOLUTE AUTO 0 [facility] Basophils/100 WBC (Bld) 0.4 % 0.2 - 2.0 % [facility] Eosinophils/100 WBC (Bld) 1.7 % 0.9 - 7.0 % [facility] Erythrocyte distribution width (RBC) [Ratio] 12.3 % 11.0 - 15.0 % [facility] IMMATURE GRANULOCYTES ABS AUTO 0.02 [facility] Immature granulocytes/100 WBC (Bld) 0.2 % 0.0 - 0.5 % [facility] Interpretation and review of laboratory results Abnormal [facility] LYMPHOCYTES ABSOLUTE AUTO 1.4 [facility] Lymphocytes/100 WBC (Bld) 15.4 % Low 20.5 - 60.0 % [facility] MCH (RBC) [Entitic mass] 31.6 pg 26.7 - 34.0 pg [facility] MCHC (RBC) [Mass/Vol] 34.6 g/dL 29.9 - 35.2 g/dL [facility] MCV (RBC) [Entitic vol] 91.4 fL 81.0 - 99.0 fL [facility] MONOCYTES ABSOLUTE AUTO 0.5 [facility] Monocytes/100 WBC (Bld) 5.4 % 1.7 - 12.0 % [facility] NEUTROPHILS ABSOLUTE AUTO 7 High [facility] Neutrophils/100 WBC (Bld) 76.9 % High 43.0 - 75.0 % [facility] Platelet mean volume (Bld) [Entitic vol] 10.1 fL 9.5 - 13.5 fL [facility] TBH EO # 0.2 [facility] TBH PLT 216 [facility] TBH RBC 4.65 [facility] TBH WBC 9.2 [facility] CBC without diffOrdered By: Lay Peacock on 01-05-2025 Rbc Mcv (Fl) By Automated Count 91.4 [facility] Drug Screen, Urineon 025 Amphetamine/Methamphet amine Negative [facility] Barbiturates Negative [facility] Benzodiazepines Negarive [facility] Cocaine Metabolite Negative [facility] Ecstasy Negative [facility] Methadone Negative [facility] Opiates Negative [facility] Phencyclidine Negative [facility] Thc Marijuana, Urine Negative [facility] HBV surface Ag IA Qlon 01-05 Hepatitis B Surface Antigen Negative [facility] HIV 1+2 Ab+HIV1 p24 Ag IA Ql on 01-05-2025 HIV 1&2 AB/AG Non-Reactive [facility] Hemoglobin A1con 01-05-2025 HbA1c (Bld) [Mass fraction] 5 % 4.0 - 6.0 % [facility] Laboratory - Hematology and Cell countson 01-05-2025 Hematocrit (Bld) [Volume fraction] 42.5 % [facility] Hemoglobin (Bld) [Mass/Vol] 14.7 g/dL [facility] No Panel Informationon 01-05 [facility] Rubella IGG immune statuson 01-05-2025 Rubella immune IgG 1.57 [facility] Type and screenon 01-05-2025 Abo/Rh(D) Positive [facility] US OB TRANSVAGINALon 025 US OB [...] the right ovary was not visualized. Electronically Signed:Electronickeshia y signed by RADHA POE II, MD, PHD at 14-Dec-2024 08:35:59 PM [employer] Normal Not Available Comment on above: Order Comment: US OB TRANSVAGINAL No LMP recorded. TBH PREG QUANT HCGon 025 HCG QUANTITATIVE 59267 mIU/mL [facility]a lthcare Comment on above: 5-50 0.2-1 WEEK 50-500 1-2 WEEKS 100-5,000 2-3 WEEKS 500-10,000 3-4 WEEKS 1,000-50,000 4-5 WEEKS 10,000-100,000 5-6 WEEKS 15,000-200,000 6-8 WEEKS 10,000-100,000 2-3 MONTHS CL[facility] TBH PREG QUANT HCGon 11-19-2 025 HCG QUANTITATIVE 6254 mIU/mL [facility] lthcare Comment on above: 5-50 0.2-1 WEEK 50-500 1-2 WEEKS 100-5,000 2-3 WEEKS 500-10,000 3-4 WEEKS 1,000-50,000 4-5 WEEKS 10,000-100,000 5-6 WEEKS 15,000-200,000 6-8 WEEKS 10,000-100,000 2-3 MONTHS CL[facility] TBH PREG QUANT HCGon 08-18-2 024 HCG QUANTITATIVE 6 mIU/mL [facility] Comment on above: 5-50 0.2-1 WEEK 50-500 1-2 WEEKS 100-5,000 2-3 WEEKS 500-10,000 3-4 WEEKS 1,000-50,000 4-5 WEEKS 10,000-100,000 5-6 WEEKS 15,000-200,000 6-8 WEEKS 10,000-100,000 2-3 MONTHS CL[facility] ALL CBC WITH AUTO DIFFon BASOPHILS ABSOLUTE AUTO 0 [facility] Basophils/100 WBC (Bld) 0.5 % 0.2 - 2.0 % [facility] Eosinophils/100 WBC (Bld) 6.2 % 0.9 - 7.0 % [facility] Erythrocyte distribution width (RBC) [Ratio] 11.9 % 11.0 - 15.0 % [facility] Hematocrit (Bld) [Volume fraction] 43.8 % 36.0 - 48.0 % [facility] Hemoglobin (Bld) [Mass/Vol] 14.8 g/dL 12.0 - 16.0 g/dL [facility] IMMATURE GRANULOCYTES ABS AUTO 0.02 [facility] Immature granulocytes/100 WBC (Bld) 0.2 % 0.0 - 0.5 % [facility] LYMPHOCYTES ABSOLUTE AUTO 2 [facility] Lymphocytes/100 WBC (Bld) 22.1 % 20.5 - 60.0 % [facility] MCH (RBC) [Entitic mass] 31.7 pg 26.7 - 34.0 pg [facility] MCHC (RBC) [Mass/Vol] 33.8 g/dL 29.9 - 35.2 g/dL [facility] [employer] MCV (RBC) [Entitic vol] 93.8 fL 81.0 - 99.0 fL [facility] MONOCYTES ABSOLUTE AUTO 0.5 [facility] Monocytes/100 WBC (Bld) 5.3 % 1.7 - 12.0 % [facility] NEUTROPHILS ABSOLUTE AUTO 5.8 [facility] Neutrophils/100 WBC (Bld) 65.7 % 43.0 - 75.0 % [facility] Platelet mean volume (Bld) [Entitic vol] 10 fL 9.5 - 13.5 fL [facility] TBH EO # 0.6 [facility] TBH PLT 236 [facility] TBH RBC 4.67 [facility] TBH WBC 8.9 [facility] [employer] [place] 08-10-2024 L Specimen: [id number] Received: 08/10/24 Status: CAROL Parker Num: [id number] Spec Type: Surgical Subm Dr: Jose Rodriguez Tissues: A Products of Conception - Spontaneous or Missed (CONTENTS OF CONCEPT Procedures: HE/2, Gross/Micro L4 Age/ Patient Sex Location Account Attending Physician Vimal Funes / LABELL [phone] Jsoe Rodriguez SPEC NUM: [id number] RECD: 08/10/24 STATUS: CAROL PARKER NUM: [id number] CAROLIN: 08/10/24 [facility] DR: Jose Rodriguez ENTERED: 08/10/[address]: Rafia,Lab SPEC TYPE: Surgical DEPT: MONICA ALTMAN ENTERED BY: [id number] RECV BY: [id number] ORDERED: HE/2, Gross/Micro L4 ORDERED: HE/2, Gross/Micro [...] villi and decidua. No tissue is identified. Dye Automation Operator sections of the chorionic villi are submitted in cassette A1 with pest control service representative sections of the decidua is submitted in cassette A2. (2, ss, [id number]) CPT Codes 91907 Specimen: [id number] Received: 08/10/24-1501 Status: CAROL Parker Num: [id number] Spec Type: Surgical Subm Dr: Jose Rodriguez Tissues: A Products of Conception - Spontaneous or Missed (CONTENTS OF CONCEPT Procedures: HE/2, Gross/Micro L4 Patient: Vimal Funes [id number] (Continued) Signed (signature on file) Josh Aragon MD 08/13/24 7980 Normal [facility] TB PREG QUANT HCGon 08-10- 024 HCG QUANTITATIVE 240 mIU/mL [facility] Comment on above: 5-50 0.2-1 WEEK 50-500 1-2 WEEKS 100-5,000 2-3 WEEKS 500-10,000 3-4 WEEKS 1,000-50,000 4-5 WEEKS 10,000-100,000 5-6 WEEKS 15,000-200,000 6-8 WEEKS 10,000-100,000 2-3 MONTHS [facility] ALL CBC WITH AUTO DIFFon BASOPHILS ABSOLUTE AUTO 0.1 [facility] [facility] Bas[facility]/100 WBC (Bld) 0.5 % 0.2 - 2.0 % [facility] Eosinophils/100 WBC (Bld) 2.8 % 0.9 - 7.0 % [facility] Erythrocyte distribution width (RBC) [Ratio] 11.9 % 11.0 - 15.0 % [facility] Hematocrit (Bld) [Volume fraction] 44.7 % 36.0 - 48.0 % [facility] Hemoglobin (Bld) [Mass/Vol] 15.3 g/dL 12.0 - 16.0 g/dL [facility] IMMATURE GRANULOCYTES ABS AUTO 0.03 [facility] Immature granulocytes/100 WBC (Bld) 0.3 % 0.0 - 0.5 % [facility] Interpretation and review of laboratory results Abnormal [facility] LYMPHOCYTES ABSOLUTE AUTO 1.6 [facility] Lymphocytes/100 WBC (Bld) 14.9 % Low 20.5 - 60.0 % [facility] MCH (RBC) [Entitic mass] 31.7 pg 26.7 - 34.0 pg [facility] MCHC (RBC) [Mass/Vol] 34.2 g/dL 29.9 - 35.2 g/dL [facility] MCV (RBC) [Entitic vol] 92.7 fL 81.0 - 99.0 fL [facility] MONOCYTES ABSOLUTE AUTO 0.4 [facility] Monocytes/100 WBC (Bld) 3.7 % 1.7 - 12.0 % [facility] NEUTROPHILS ABSOLUTE AUTO 8.2 High [facility] Neutrophils/100 WBC (Bld) 77.8 % High 43.0 - 75.0 % [facility] Platelet mean volume (Bld) [Entitic vol] 10 fL 9.5 - 13.5 fL [facility] TBH EO # 0.3 [facility] PLT 263 [facility] TB RBC 4.82 [facility] TBH WBC 10.6 [facility] No Panel Informationon 07-21 [facility] TB DRUG SCREEN RAPID (URINE )on 07-21-2024 AMPHETAMINE SCREEN URINE Negative NEGATIVE [facility] BARBITURATES SCREEN URINE Negative NEGATIVE [facility] BENZODIAZEPINES SCREEN URINE Negative NEGATIVE [facility] BUPRENORPHINE SCREEN URINE Negative NEGATIVE [facility] Comment on above: DRUG CLASS TEST [...] 300 ng/mL CANNABINOID SCREEN URINE Negative NEGATIVE [facility] COCAINE SCREEN URINE Negative NEGATIVE [facility] METHADONE SCREEN URINE Negative NEGATIVE NO [facility] METHAMPHETAMINES SCREEN URINE Negative NEGATIVE [facility] OPIATE SCREEN URINE Negative NEGATIVE [facility] OXYCODONE SCREEN URINE Negative NEGATIVE NO [facility] PHENCYCLIDINE SCREEN URINE Negative NEGATIVE [facility] TRICYCLIC ANTIDEPRESSANT URINE Negative NEGATIVE [facility] REEFLEX IF POSITIVE [facility] HCG ( test) Ql (U)o n 06-29-2024 Interpretation and review of laboratory results Abnormal [facility] Preg Test, Ur [facility] macro (dipstick) panel (U)on 06-29-2024 Bilirubin, UA Negative Negative - 4(70) +++ mg/dL [facility] Blood, UA Negative Negative - 50 Jason/mcL [facility] Clarity, UA Clear [facility] re Color, UA [facility] e Glucose, UA Negative Negative - 1999(110) ++++ mg/dL [facility] Interpretation and review of laboratory results Normal [facility] Ketones, UA Negative Negative - 160(16) ++++ mg/dL [facility] Leukocytes, UA Negative Negative - 500+++ Carlos/mcL [facility] Nitrite, UA Negative Negative - Positive [facility] pH, UA 7.0 5 - 9 [facility] Protein, UA Negative Negative - 1999(20) ++++ mg/dL [facility] Spec Grav, UA 1.015 1 - 1.03 [facility] Urobilinogen, UA 0.2 0.2 - 12 mg/dL [facility] XR hand RT min 3V*on 023 XR hand RT min 3V* [facility] [employer] Other XR hand RT min 3V* [facility] [employer] Other XR hand RT min 3V* 1[facility] [employer] Other XR hand RT min 3V* CASSIE Tinoco [address] [employer] Other XR hand RT min 3V* XRay Report [employer] Other XR hand RT min 3V* Signed [employer] Other XR hand RT min 3V* Patient: Vimal Funes MR#: [id number] [place] [employer] Other XR hand RT min 3V* 18 [employer] Other XR hand RT min 3V* : 2000 Acct:[id number] [employer] Other XR hand RT min 3V* Age/Sex: 22 / F ADM Date: 12/26/22 [employer] Other XR hand RT min 3V* Loc: XDUCLY Room: Type: [facility] [employer] Other XR hand RT min 3V* Attending Dr: Jennifer GIL [employer] Other XR hand RT min 3V* Copies to: JEFFERY Rodriguez [employer] Other XR hand RT min 3V* Ordering Provider: JEFFERY Rodriguez [employer] Other XR hand RT min 3V* Date of Service: 12/26/22 [employer] Other XR hand RT min 3V* XR/XR hand RT min 3V*: RIGHT HAND INJURY [employer] Other XR hand RT min 3V* RIGHT HAND - 4 views [employer] Other XR hand RT min 3V* REASON FOR EXAM: Patient had right thumb hyperextended yesterday when trying to open the door. Now [employer] Other XR hand RT min 3V* with pain. [employer] Other XR hand RT min 3V* COMPARISON: None [employer] Other XR hand RT min 3V* FINDINGS: [employer] Other XR hand RT min 3V* No focal soft tissue abnormality. There appears to be avulsion fracture involving the base of the [employer] Other XR hand RT min 3V* distal phalanx of the thumb. Joint spaces appear maintained. No bony erosions. [employer] Other XR hand RT min 3V* XR/XR hand RT min 3V* [employer] Other XR hand RT min 3V* IMPRESSION: [employer] Other XR hand RT min 3V* AVULSION FRACTURE INVOLVING THE BASE OF THE DISTAL PHALANX OF THE THUMB. [employer] Other XR hand RT min 3V* Impression dictated by: Bulmaro Arias Jr., D.OGene12/26/2022 1:44 PM [employer] Other XR hand RT min 3V* Dictation Location: [facility]- [employer] Other XR hand RT min 3V* Transcribed By: LYNETTE 12/26/22 134 [employer] Other XR hand RT min 3V* Dictated By: Bulmaro Arias Jr, DO 12/26/22 1343 [employer] Other XR hand RT min 3V* Signed By: [employer] Other XR hand RT min 3V* 12/26/[address] [facility] [employer] Other PAP ACOG PANEL 2: 22 to 30on 11-09-2022 . . Normal [facility] Comment on above: Performed By: #### [id number] ####[facility] [address] [place] [id number] Mancini Age Gdln ACOG Testing - Normal [facility] Comment on above: Performed By: #### 4 [id number] ####[facility] [address] [place] [id number]. Donis Mancini DIAGNOSIS: Comment [facility] Comment on above: Result Comment: NEGA TIVE FOR INTRAEPITHELIAL LESION OR MALIGNANCY. Performed By: #### 4 [id number] ####[facility] [address] [place], [place] [id number]. Donis Mancini Methodology: Comment [facility] Comment on above: Result Comment: This liquid based ThinPrep(R) pap test was screened with the use of an image guided system. Performed By: #### 4 [id number] ####[facility] [address] [place], [place] [address]DrGene Mancini Note: Comment [facility] Comment [...] do occur. . Performed By: #### 4 [id number] ####[facility] [address] [place] [id number]. Donis Mancini Performed by: Comment Normal [facility] Comment on above: Result Comment: Zuleima Lin Livestock Judging Coach (ASCP) Performed By: #### 4 [id number] ####[facility] [address] [place] [id number]. Donis Mancini Reflex Criteria: Comment [facility] Comment on above: Result Comment: The HPV DNA reflex criteria were not met with this specimen result therefore, no HPV testing was performed. . Performed By: #### 4 [id number] ####[facility] [address] [place] [address]Dr. Donis Mancini Specimen adequacy: Comment Normal [facility] Comment on above: Result Comment: Sati sfactory for evaluation. Endocervical and/or squamous metaplastic cells (endocervical component) are present. Performed By: #### 4 [id number] ####[facility] [address] [place] [address]Dr. Donis Mancini Cytology Cervical or vaginal smear or scraping studyOrdered By: Jael Nix on 11-02-2022 [facility] CBC AUTO DIFFon 08-11-2022 BASO # 0.0 103/ul Normal 0.0-0.1 [facility] Comment on above: Performed By: #### C T/NGNA #### [facility] [address] [place] [address] Dr. Donis Mancini Basophils/100 WBC (Bld) 0.2 % Normal 0.2-2.0 [facility] Comment on above: Performed By: #### C T/NGNA #### [facility] [address] [address] [address] Donis Mancini EO # 0.1 103/ul Normal 0.0-0.7 [facility] Comment on above: Performed By: #### C T/NGNA #### [facility] [address] [place] [address] Dr. Donis Mancini Eosinophils/100 WBC (Bld) 0.5 % Critically low 0.9-7.0 [facility] Comment on above: Performed By: #### C T/NGNA #### [facility] [address] [address] [address] Donis Mancini Erythrocyte distribution width (RBC) [Ratio] 12.5 % Normal 11.0-15.0 [facility] Comment on above: Performed By: #### C T/NGNA #### [facility] [address] [place] [address] Dr. Donis Mancini Hematocrit (Bld) [Volume fraction] 35.9 % Critically low 36.0-48.0 [facility] Comment on above: Performed By: #### C T/NGNA #### [facility] [address] [place] [address] Dr. Donis Mancini Hemoglobin (Bld) [Mass/Vol] 12.4 g/dL Normal 12.0-16.0 [facility] Comment on above: Result Comment: michelet ent delivered Performed By: #### C T/NGNA #### [facility] [address] [place] [address] Dr. Donis Mancini IG # 0.10 10e3/ul Critically high 0.00-0.03 [facility] Comment on above: Performed By: #### C T/NGNA #### [facility] [address] [place] [address] Dr. Donis Mancini IG % 0.5 % Normal 0.0-0.5 [facility] Comment on above: Performed By: #### C T/NGNA #### [facility] [address] [place] [address] Dr. Donis Mancini LYMPH # 1.5 103/ul Normal 1.2-3.8 [facility] Comment on above: Performed By: #### C T/NGNA #### [facility] [address] [place] [address] Dr. Donis Mancini Lymphocytes/100 WBC (Bld) 7.6 % Critically low 20.5-60.0 [facility] Comment on above: Performed By: #### C T/NGNA #### [facility] [address] [place] [address] Dr. Donis Mancini MANUAL DIFF REQ NO Normal [facility] Comment on above: Performed By: #### C T/NGNA #### [facility] [address] [place] [address] Dr. Donis Mancini MCH (RBC) [Entitic mass] 32.2 pg Normal 26.7-34.0 [facility] Comment on above: Performed By: #### C T/NGNA #### [facility] [address] [place] [address] Dr. Donis Mancini MCHC (RBC) [Mass/Vol] 34.5 g/dL Normal 29.9-35.2 [facility] Comment on above: Performed By: #### C T/NGNA #### [facility] [address] [place] [address] Dr. Donis Mancini MCV (RBC) [Entitic vol] 93.2 fL Normal 81.0-99.0 [facility] Comment on above: Performed By: #### C T/NGNA #### [facility] [address] [place] [address] Dr. Donis Mancini MONO # 1.3 103/ul Critically high 0.3-0.8 [facility] Comment on above: Performed By: #### C T/NGNA #### [facility] [address] [place] [address] Dr. Donis Mancini Monocytes/100 WBC (Bld) 6.8 % Normal 1.7-12.0 [facility] Comment on above: Performed By: #### C T/NGNA #### [facility] [address] [place] [address] Dr. Donis Mancini NEUT # 16.2 103/ul Critically high 1.4-6.5 [facility] Comment on above: Performed By: #### C T/NGNA #### [facility] [address] [place] [address] Dr. Donis Mancini Neutrophils/100 WBC (Bld) 84.4 % Critically high 43.0-75.0 [facility] Comment on above: Performed By: #### C T/NGNA #### [facility] [address] [place] [address] Dr. Donis Mancini Platelet mean volume (Bld) [Entitic vol] 11.8 fL Normal 9.5-13.5 [facility] Comment on above: Performed By: #### C T/NGNA #### [facility] [address] [place] [address] Dr. Donis Mancini PLT 156 103/ul Normal 150-450 [facility] Comment on above: Performed By: #### C T/NGNA #### [facility] [address] [place], [place] [address] Dr. Donis Mancini RBC 3.85 106/ul Critically low 4.20-5.40 [facility] Comment on above: Performed By: #### C T/NGNA #### [facility] [address] [place], [place] [address] Dr. Donis Mancini WBC 19.2 103/ul Critically high 4.0-11.0 [facility] Comment on above: Performed By: #### C T/NGNA #### [facility] [address] [place], [place] [address] Dr. Donis Mancini Covid-19 PCR (CVDTB)on 07-27 SARS-CoV-2 (COVID-19) RNA INESSA+probe Ql (Unsp spec) Not detected Normal NOT DETECTED [facility] Comment on above: Result Comment: When [...] for this test is supported by the [place] of Health and Human Service's declaration that [...] be used). Performed By: #### C VDTBH ####[facility] [address] [place], [place] [address]PmDr. Donis Mancini DRUG SCREEN RAPID (URINE)on 08-10-2022 AMP Negative Normal NEGATIVE [facility] Comment on above: Performed By: #### D RUGRPD ####[facility] [address] [place], [place] [address]InDr. Donis Mancini BAR Negative Normal NEGATIVE [facility] Comment on above: Performed By: #### D RUGRPD ####[facility] [address] [place] [id number]. Donis Mancini BUP Negative Normal NEGATIVE [facility] Comment on above: Performed By: #### D RUGRPD ####[facility] [address] [place] [id number]. Laceyjavi Mancini BZO Negative Normal NEGATIVE [facility] Comment on above: Performed By: #### D RUGRPD ####[facility] [address] [place] [id number]. Donis Mancini ALEXA Negative Normal NEGATIVE [facility] Comment on above: Performed By: #### D RUGRPD ####[facility] [address] [place], [place] [id number]. Donis Mancini CUT-OFFS SEE BELOW Normal [facility] Comment on above: Result Comment: AMP (Amphetamine): 500ng/mL, BAR (Barbituates): 200 ng/mL, BZO (Benzodiazepines): 150 ng/mL, BUP (Buprenorphine): 10 ng/mL, ALEXA (Cocaine): 150 ng/mL, mAMP (Methamphetamine): 500 ng/mL, MTD (Methadone): 200 ng/mL, OPI (Opiates): 100 ng/mL, OXY (Oxycodone): 100 ng/mL, PCP (Phencyclidine): 25 ng/mL, PPX (Propoxyphene): 300 ng/mL, THC (Cannabinoids): 50 ng/mL, TCA (Trycyclic Antidepressants): 300 ng/mL Performed By: #### D RUGRPD ####[facility] [address] [place] [id number]. Donis Mancini DRUG CUT HEADER DRUG CLASS TEST SYSTEM CUT-OFF CONCENTRATIONS ARE FOLLOWS: Normal [facility] Comment on above: Performed By: #### D RUGRPD ####[facility] [address] [place] [id number]. Laceyjavi Mancini mAMP Negative Normal NEGATIVE [facility] Comment on above: Performed By: #### D RUGRPD ####[facility] [address] [place] [id number]. Yijavi Mancini MTD Negative Normal NEGATIVE [facility] Comment on above: Performed By: #### D RUGRPD ####[facility] [address] [place] [id number]. Yijavi Mancini OPI Negative Normal NEGATIVE [facility] Comment on above: Performed By: #### D RUGRPD ####[facility] [address] [place] [id number]. Yilan Mancini OXY Negative Normal NEGATIVE [facility] Comment on above: Performed By: #### D RUGRPD ####[facility] [address] [place] [address]Dr. Donis Mancini PCP Negative Normal NEGATIVE [facility] Comment on above: Performed By: #### D RUGRPD ####[facility] [address] [place] [address]Dr. Donis Mancini PPX Negative Normal NEGATIVE [facility] Comment on above: Performed By: #### D RUGRPD ####[facility] [address] [place], [place] [address]Dr. Donis Mancini TCA Negative Normal NEGATIVE [facility] Comment on above: Performed By: #### D RUGRPD ####[facility] [address] [place] [address]Dr. Donis Mancini THC Negative Normal NEGATIVE [facility] Comment on above: Performed By: #### D RUGRPD ####[facility] [address] [place], [place] [address]Dr. Donis Mancini TYPE AND SCREENon 08-10-2022 TYPE AND SCREEN Negative Normal [facility] Comment on above: Performed By: #### T NS ####[facility] [address] [place], [place] [address]Dr. Donis Mancini US PREG BIOPHY W NON [...] ESTEFANY BENNETT Date: 2022-08-10 07:18 Normal [facility] US PREG GROWTHon 08-10-2022 US PREG [...] ESTEFANY BENNETT Date: 2022-08-10 07:16 Normal [facility] CBC AUTO DIFFon 08-09-2022 BASO # 0.0 103/ul Normal 0.0-0.1 [facility] Comment on above: Performed By: #### C BC ####[facility] [address] [place] [address]Dr. Donis Mancini Basophils/100 WBC (Bld) 0.2 % Normal 0.2-2.0 [facility] Comment on above: Performed By: #### C BC ####[facility] [address] [place] [id number] Mancini EO # 0.4 103/ul Normal 0.0-0.7 [facility] Comment on above: Performed By: #### C BC ####[facility] [address] [place] [id number]. Donis Mancini Eosinophils/100 WBC (Bld) 2.8 % Normal 0.9-7.0 [facility] Comment on above: Performed By: #### C BC ####[facility] [address] [place] [address]Dr. Donis Mancini Erythrocyte distribution width (RBC) [Ratio] 12.2 % Normal 11.0-15.0 [facility] Comment on above: Performed By: #### C BC ####[facility] [address] [place], [place] [address]Dr. Donis Mancini Hematocrit (Bld) [Volume fraction] 41.4 % Normal 36.0-48.0 [facility] Comment on above: Performed By: #### C BC ####[facility] [address] [place], [place] [address]Dr. Donis Mancini Hemoglobin (Bld) [Mass/Vol] 14.4 g/dL Normal 12.0-16.0 [facility] Comment on above: Performed By: #### C BC ####[facility] [address] [place], [place] [address]Dr. Donis Mancini IG # 0.06 10e3/ul Critically high 0.00-0.03 [facility] Comment on above: Performed By: #### C BC ####[facility] [address] [place], [place] [address]Dr. Donis Mancini IG % 0.5 % Normal 0.0-0.5 [facility] Comment on above: Performed By: #### C BC ####[facility] [address] [place], [place] [address]Dr. Donis Mancini LYMPH # 1.5 103/ul Normal 1.2-3.8 [facility] Comment on above: Performed By: #### C BC ####[facility] [address] [place], [place] [address]Dr. Donis Mancini Lymphocytes/100 WBC (Bld) 11.7 % Critically low 20.5-60.0 [facility] Comment on above: Performed By: #### C BC ####[facility] [address] [place] [id number]. Donis Mancini MANUAL DIFF REQ NO Normal [facility] Comment on above: Performed By: #### C BC ####[facility] [address] [place] [id number]. Donis Mancini MCH (RBC) [Entitic mass] 31.9 pg Normal 26.7-34.0 [facility] Comment on above: Performed By: #### C BC ####[facility] [address] [place], [place] [address]Dr. Donis Mancini MCHC (RBC) [Mass/Vol] 34.8 g/dL Normal 29.9-35.2 [facility] Comment on above: Performed By: #### C BC ####[facility] [address] [place], [place] [address]Dr. Donis Mancini MCV (RBC) [Entitic vol] 91.8 fL Normal 81.0-99.0 [facility] Comment on above: Performed By: #### C BC ####[facility] [address] [place] [id number]. Donis Live MONO # 1.0 103/ul Critically high 0.3-0.8 [facility] Comment on above: Performed By: #### C BC ####[facility] [address] [place], [place] [address]Dr. Donis Mancini Monocytes/100 WBC (Bld) 7.5 % Normal 1.7-12.0 [facility] Comment on above: Performed By: #### C BC ####[facility] [address] [place] [id number]. Donis Mancini NEUT # 10.0 103/ul Critically high 1.4-6.5 [facility] Comment on above: Performed By: #### C BC ####[facility] [address] [place], [place] [address]Dr. Donis Mancini Neutrophils/100 WBC (Bld) 77.3 % Critically high 43.0-75.0 [facility] Comment on above: Performed By: #### C BC ####[facility] [address] [place] [id number]. Donis Mancini Platelet mean volume (Bld) [Entitic vol] 11.6 fL Normal 9.5-13.5 [facility] Comment on above: Performed By: #### C BC ####[facility] [address] [place] [id number]. Donis Mancini PLT 184 103/ul Normal 150-450 [facility] Comment on above: Performed By: #### C BC ####[facility] [address] [place] [id number]. Donis Mancini RBC 4.51 106/ul Normal 4.20-5.40 [facility] Comment on above: Performed By: #### C BC ####[facility] [address] [place] [address]Dr. Donis Mancini WBC 12.9 103/ul Critically high 4.0-11.0 [facility] Comment on above: Performed By: #### C BC ####[facility] [address] [place] [id number] Mancini LDHon 08-09-2022 LDH 167 U/L Normal 81-234 [facility] Comment on above: Performed By: #### C T/NGNA #### [facility] [address] [address] [address] Donis Mancini PROF 14(COMP METB)on 022 Albumin [Mass/Vol] 2.7 g/dL Critically low 3.4-5.0 [facility] Comment on above: Performed By: #### C T/NGNA #### [facility] [address] [address] [address] Donis Mancini Albumin/Globulin [Mass ratio] 0.6 {ratio} Normal [facility] Comment on above: Performed By: #### C T/NGNA #### [facility] [address] [address] [address] Donis Mancini ALP [Catalytic activity/Vol] 176 U/L Critically high 46-116 [facility] Comment on above: Performed By: #### C T/NGNA #### [facility] [address] [address] [address] Donis Mancini ALT [Catalytic activity/Vol] 20 U/L Normal 14-59 [facility] Comment on above: Performed By: #### C T/NGNA #### [facility] [address] [address] [address] Donis Mancini Anion gap [Moles/Vol] 12.9 mmol/L Normal [facility] Comment on above: Performed By: #### C T/NGNA #### [facility] [address] [address] [address] Donis Mancini AST [Catalytic activity/Vol] 20 U/L Normal 15-37 [facility] Comment on above: Performed By: #### C T/NGNA #### [facility] [address] [address] [address] Donis Mancini Bilirubin [Mass/Vol] 0.1 mg/dL Critically low 0.2-1.0 [facility] Comment on above: Performed By: #### C T/NGNA #### [facility] [address] [address] [address] Donis Mancini Calcium [Mass/Vol] 9.1 mg/dL Normal 8.5-10.1 [facility] Comment on above: Performed By: #### C T/NGNA #### [facility] [address] [address] [address] Donis Mancini Chloride [Moles/Vol] 104 mmol/L Normal 98-107 [facility] Comment on above: Performed By: #### C T/NGNA #### [facility] [address] [address] [address] Donis Mancini CO2 [Moles/Vol] 22.9 mmol/L Normal 21.0-32.0 [facility] Comment on above: Performed By: #### C T/NGNA #### [facility] [address] [address] [address] Donis Mancini Creatinine [Mass/Vol] 0.43 mg/dL Critically low 0.55-1.02 [facility] Comment on above: Performed By: #### C T/NGNA #### [facility] [address] [address] [address] Donis Mancini EGFR-AF CITIZEN OF [place] >60 Normal >=60 [facility] Comment on above: Performed By: #### C T/NGNA #### [facility] [address] [address] [address] Donis Mancini EGFR-NON AF CITIZEN OF [place] >60 Normal >=60 [facility] Comment on above: Performed By: #### C T/NGNA #### [facility] [address] [address] [address] Donis Mancini Globulin (S) [Mass/Vol] 4.2 g/dL Normal [facility] Comment on above: Performed By: #### C T/NGNA #### [facility] [address] [address] [address] Donis Mancini Glucose [Mass/Vol] 95 mg/dL Normal 74-106 [facility] Comment on above: Performed By: #### C T/NGNA #### [facility] [address] [address] [address] Donis Mancini Potassium [Moles/Vol] 3.8 mmol/L Normal 3.5-5.1 [facility] Comment on above: Performed By: #### C T/NGNA #### [facility] [address] [address] [address] Donis Mancini Protein [Mass/Vol] 6.9 g/dL Normal 6.4-8.2 [facility] Comment on above: Performed By: #### C T/NGNA #### [facility] [address] [address] [address] Donis Mancini Sodium [Moles/Vol] 136 mmol/L Normal 136-145 [facility] Comment on above: Performed By: #### C T/NGNA #### [facility] [address] [address] [address] Donis Mancini Urea nitrogen [Mass/Vol] 10.0 mg/dL Normal 7.0-18.0 [facility] Comment on above: Performed By: #### C T/NGNA #### [facility] [address] [place] [address] Dr. Donis Mancini Urea nitrogen/Creatinine [Mass ratio] 23.3 mg/mg Normal [facility] Comment on above: Performed By: #### C T/NGNA #### [facility] [address] [place] [address] Dr. Donis Mancini URIC ACID SERUMon 08-09-2022 Urate [Mass/Vol] 3.6 mg/dL Normal 2.6-6.0 [facility] Comment on above: Performed By: #### C T/NGNA #### [facility] [address] [place] [address] Dr. Donis Mancini CBC AUTO DIFFon 08-07-2022 BASO # 0.0 103/ul Normal 0.0-0.1 [facility] Comment on above: Performed By: #### U AMIC #### [facility] [address] [place] [address] Dr. Donis Mancini Basophils/100 WBC (Bld) 0.2 % Normal 0.2-2.0 [facility] Comment on above: Performed By: #### U AMIC #### [facility] [address] [place] [address] Dr. Donis Mancini EO # 0.2 103/ul Normal 0.0-0.7 [facility] Comment on above: Performed By: #### U AMIC #### [facility] [address] [place] [address] Dr. Donis Mancini Eosinophils/100 WBC (Bld) 1.8 % Normal 0.9-7.0 [facility] Comment on above: Performed By: #### U AMIC #### [facility] [address] [place] [address] Dr. Donis Mancini Erythrocyte distribution width (RBC) [Ratio] 12.3 % Normal 11.0-15.0 [facility] Comment on above: Performed By: #### U AMIC #### [facility] [address] [address] [address] Donis Mancini Hematocrit (Bld) [Volume fraction] 45.7 % Normal 36.0-48.0 [facility] Comment on above: Performed By: #### U AMIC #### [facility] [address] [place] [address] Dr. Donis Mancini Hemoglobin (Bld) [Mass/Vol] 16.0 g/dL Normal 12.0-16.0 [facility] Comment on above: Performed By: #### U AMIC #### [facility] [address] [place] [address] Dr. Donis Mancini IG # 0.07 10e3/ul Critically high 0.00-0.03 [facility] Comment on above: Performed By: #### U AMIC #### [facility] [address] [place] [address] Dr. Donis Mancini IG % 0.5 % Normal 0.0-0.5 [facility] Comment on above: Performed By: #### U AMIC #### [facility] [address] [place] [address] Dr. Donis Mancini LYMPH # 1.5 103/ul Normal 1.2-3.8 [facility] Comment on above: Performed By: #### U AMIC #### [facility] [address] [place] [address] Dr. Donis Mancini Lymphocytes/100 WBC (Bld) 11.2 % Critically low 20.5-60.0 [facility] Comment on above: Performed By: #### U AMIC #### [facility] [address] [place] [address] Dr. Donis Mancini MANUAL DIFF REQ NO Normal [facility] Comment on above: Performed By: #### U AMIC #### [facility] [address] [place] [address] Dr. Donis Mancini MCH (RBC) [Entitic mass] 32.0 pg Normal 26.7-34.0 [facility] Comment on above: Performed By: #### U AMIC #### [facility] [address] [place] [address] Dr. Donis Mancini MCHC (RBC) [Mass/Vol] 35.0 g/dL Normal 29.9-35.2 [facility] Comment on above: Performed By: #### U AMIC #### [facility] [address] [address] [address] Donis Mancini MCV (RBC) [Entitic vol] 91.4 fL Normal 81.0-99.0 [facility] Comment on above: Performed By: #### U AMIC #### [facility] [address] [address] [address] Donis Mancini MONO # 0.9 103/ul Critically high 0.3-0.8 [facility] Comment on above: Performed By: #### U AMIC #### [facility] [address] [address] [address] Donis Mancini Monocytes/100 WBC (Bld) 6.3 % Normal 1.7-12.0 [facility] Comment on above: Performed By: #### U AMIC #### [facility] [address] [address] [address] Donis Mancini NEUT # 10.9 103/ul Critically high 1.4-6.5 [facility] Comment on above: Performed By: #### U AMIC #### [facility] [address] [address] [address] Donis Mancini Neutrophils/100 WBC (Bld) 80.0 % Critically high 43.0-75.0 [facility] Comment on above: Performed By: #### U AMIC #### [facility] [address] [address] [address] Donis Mancini Platelet mean volume (Bld) [Entitic vol] 11.5 fL Normal 9.5-13.5 [facility] Comment on above: Performed By: #### U AMIC #### [facility] [address] [address] [address] Donis Mancini PLT 182 103/ul Normal 150-450 [facility] Comment on above: Performed By: #### U AMIC #### [facility] [address] [address] [address] Donis Mancini RBC 5.00 106/ul Normal 4.20-5.40 [facility] Comment on above: Performed By: #### U AMIC #### [facility] [address] [address] [address] Donis Mancini WBC 13.6 103/ul Critically high 4.0-11.0 [facility] Comment on above: Performed By: #### U AMIC #### [facility] [address] [address] [address] Donis Mancini LDHon 08-07-2022 LDH 171 U/L Normal 81-234 [facility] Comment on above: Performed By: #### C MP, URIC, LDH ####[facility] [address] [address]DrGene Mancini PROF 14(COMP METB)on 022 Albumin [Mass/Vol] 2.9 g/dL Critically low 3.4-5.0 [facility] Comment on above: Performed By: #### C MP, URIC, LDH ####[facility] [address] [address]DrGene Mancini Albumin/Globulin [Mass ratio] 0.6 {ratio} Normal [facility] Comment on above: Performed By: #### C MP, URIC, LDH ####[facility] [address] [address]Dr. Donis Mancini ALP [Catalytic activity/Vol] 192 U/L Critically high 46-116 [facility] Comment on above: Performed By: #### C MP, URIC, LDH ####[facility] [address] [address]Dr. Donis Mancini ALT [Catalytic activity/Vol] 23 U/L Normal 14-59 [facility] Comment on above: Performed By: #### C MP, URIC, LDH ####[facility] [address] [address]DrGene Mancini Anion gap [Moles/Vol] 14.4 mmol/L Normal [facility] Comment on above: Performed By: #### C MP, URIC, LDH ####[facility] [address] [address]Dr. Donis Mancini AST [Catalytic activity/Vol] 23 U/L Normal 15-37 [facility] Comment on above: Performed By: #### C MP, URIC, LDH ####[facility] [address] [address]Dr. Donis Mancini Bilirubin [Mass/Vol] 0.2 mg/dL Normal 0.2-1.0 [facility] Comment on above: Performed By: #### C MP, URIC, LDH ####[facility] [address] [address]Dr. Donis Mancini Calcium [Mass/Vol] 9.4 mg/dL Normal 8.5-10.1 [facility] Comment on above: Performed By: #### C MP, URIC, LDH ####[facility] [address] [place], [place] [address]Dr. Donis Mancini Chloride [Moles/Vol] 104 mmol/L Normal 98-107 [facility] Comment on above: Performed By: #### C MP, URIC, LDH ####[facility] [address] [place], [place] [address]Dr. Donis Mancini CO2 [Moles/Vol] 21.7 mmol/L Normal 21.0-32.0 [facility] Comment on above: Performed By: #### C MP, URIC, LDH ####[facility] [address] [place], [place] [address]Dr. Donis Mancini Creatinine [Mass/Vol] 0.46 mg/dL Critically low 0.55-1.02 [facility] Comment on above: Performed By: #### C MP, URIC, LDH ####[facility] [address] [place], [place] [address]Dr. Donis Mancini EGFR-AF CITIZEN OF [place] >60 Normal >=60 [facility] Comment on above: Performed By: #### C MP, URIC, LDH ####[facility] [address] [place], [place] [address]Dr. Donis Mancini EGFR-NON AF CITIZEN OF [place] >60 Normal >=60 [facility] Comment on above: Performed By: #### C MP, URIC, LDH ####[facility] [address] [address]Dr. Donis Mancini Globulin (S) [Mass/Vol] 4.6 g/dL Normal [facility] Comment on above: Performed By: #### C MP, URIC, LDH ####[facility] [address] [address]Dr. Donis Mancini Glucose [Mass/Vol] 89 mg/dL Normal 74-106 [facility] Comment on above: Performed By: #### C MP, URIC, LDH ####[facility] [address] [place], [place] [address]Dr. Donis Mancini Potassium [Moles/Vol] 4.1 mmol/L Normal 3.5-5.1 [facility] Comment on above: Performed By: #### C MP, URIC, LDH ####[facility] [address] [place], [place] [address]Dr. Donis Mancini Protein [Mass/Vol] 7.5 g/dL Normal 6.4-8.2 [facility] Comment on above: Performed By: #### C MP, URIC, LDH ####[facility] [address] [place], [place] [address]Dr. Donis Mancini Sodium [Moles/Vol] 136 mmol/L Normal 136-145 [facility] Comment on above: Performed By: #### C MP, URIC, LDH ####[facility] [address] [place], [place] [address]Dr. Donis Mancini Urea nitrogen [Mass/Vol] 8.0 mg/dL Normal 7.0-18.0 [facility] Comment on above: Performed By: #### C MP, URIC, LDH ####[facility] [address] [place], [place] [address]Dr. Donis Mancini Urea nitrogen/Creatinine [Mass ratio] 17.4 mg/mg Normal [facility] Comment on above: Performed By: #### C MP, URIC, LDH ####[facility] [address] [address]Dr. Donis Mancini PROTIMEon 08-07-2022 INR Coag (PPP) [Relative time] {INR} Normal [facility] Comment on above: Performed By: #### U AMIC #### [facility] [address] [place] [address] Dr. Donis Mancini INR GUIDELINES SEE BELOW Normal [facility] Comment on above: Result Comment: NICCI RED INR: 2.0 - 3.0 CONDITIONS NOT LISTED BELOW 2.5 - 3.5 FOR PROSTHETIC HEART VALVE REPLACEMENT 2.5 - 3.5 RECURRENT THROMBOSIS Performed By: #### U AMIC #### [facility] [address] [address] [address] Donis Mancini PT Coag (PPP) [Time] 9.8 s Normal 9.0-11.6 [facility] Comment on above: Performed By: #### U AMIC #### [facility] [address] [place] [address] Dr. Donis Mancini PTTon 08-07-2022 aPTT Coag (Bld) [Time] 28.5 s Normal 22.3-36.2 [facility] Comment on above: Performed By: #### U AMIC #### [facility] [address] [place] [address] Dr. Donis Mancini UA (CLEAN/CATCH) LABORER PIPELINE/MICRO I F IND.on 08-07-2022 Bilirubin Ql (U) Negative Normal NEGATIVE [facility] Comment on above: Performed By: #### U AMIC #### [facility] [address] [place] [address] Dr. Donis Mancini Clarity (U) CLEAR Normal CLEAR [facility] Comment on above: Performed By: #### U AMIC #### [facility] [address] [place] [address] Dr. Donis Mancini Color (U) LT. YELLOW Normal YELLOW [facility] Comment on above: Performed By: #### U AMIC #### [facility] [address] [place] [address] Dr. Donis Mancini Glucose Ql (U) Negative Normal NEGATIVE [facility] Comment on above: Performed By: #### U AMIC #### [facility] [address] [address] [address] Donis Mancini Hemoglobin Ql (U) Negative Normal NEGATIVE [facility] Comment on above: Performed By: #### U AMIC #### [facility] [address] [address] [address] Donis Mancini Ketones Ql (U) Negative Normal NEGATIVE [facility] Comment on above: Performed By: #### U AMIC #### [facility] [address] [address] [address] Donis Mancini LEUKOCYTES Negative Normal NEGATIVE [facility] Comment on above: Performed By: #### U AMIC #### [facility] [address] [address] [address] Donis Mancini Nitrite Ql (U) Negative Normal NEGATIVE [facility] Comment on above: Performed By: #### U AMIC #### [facility] [address] [address] [address] Donis Mancini pH (U) 7.0 [pH] Normal 5-9 [facility] Comment on above: Performed By: #### U AMIC #### [facility] [address] [address] [address] Donis Mancini SPEC GRAVITY <=1.005 Abnormal 1.005-<=1.02 5 [facility] Comment on above: Performed By: #### U AMIC #### [facility] [address] [address] [address] Donis Mancini UA PROTEIN Negative Normal NEGATIVE/ TRACE [facility] Comment on above: Performed By: #### U AMIC #### [facility] [address] [address] [address] Donis Mancini UR MICRO IND NOT INDICATED Normal [facility] Comment on above: Performed By: #### U AMIC #### [facility] [address] [place] [address] Dr. Donis Mancini Urobilinogen Qn (U) 0.2 {Sarah'U}/dL Normal 0.2 - 1. 0 [facility] Comment on above: Performed By: #### U AMIC #### [facility] [address] [address] [address] Donis Mancini URIC ACID SERUMon 08-07-2022 Urate [Mass/Vol] 3.8 mg/dL Normal 2.6-6.0 [facility] Comment on above: Performed By: #### C MP, URIC, LDH ####[facility] [address] [address]Dr. Donis Mancini URINE T PROTEIN CREAT RATIOo n 08-07-2022 UR TOTAL PROTEIN <6.0 Normal <=12.0 [facility] Comment on above: Performed By: #### C T/NGNA #### [facility] [address] [address] [address] Donis Mancini URINE CREAT 13.45 mg/dL Critically low 20.00-300.00 [facility] Comment on above: Performed By: #### C T/NGNA #### [facility] [address] [place] [address] Dr. Donis Mancini US PREG BIOPHY W [...] COCO STERN Date: 2022-08-01 08:31 Normal [facility] CHLAMYDIA/GONOCOCCUS INESSA (SW AB/URINE/PAPon 07-31-2022 Chlamydia trachomatis, INESSA Negative Normal Negative [facility] Comment on above: Performed By: #### C T/NGNA #### [facility] [address] [address] [address] Donis Mancini Neisseria gonorrhoeae, INESSA Negative Normal Negative [facility] Comment on above: Performed By: #### C T/NGNA #### [facility] [address] [address] [address] Donis Mancini VAGINITIS/VAGINOSIS DNA PROB Domenic 07-31-2022 Simeon species Negative Normal Negative [facility] Comment on above: Performed By: #### V AGINT ####[facility] [address] [address]Dr. Donis Mancini Gardnerella vaginalis Negative Normal Negative [facility] Comment on above: Performed By: #### V AGINT ####[facility] [address] [address]Dr. Donis Mancini Trichomonas vaginalis Negative Normal Negative [facility] Comment on above: Performed By: #### V AGINT ####[facility] [address] [address]Dr. Donis Mancini GROUP B STREP CULTUREon S. agalactiae Ag Ql (Unsp spec) Culture Observations: NEGATIVE FOR GROUP B STREPTOCOCCUS. Normal [facility] Comment on above: Performed By: #### G BSCX #### [facility] [address] [address] [address] Donis Mancini US PREG BIOPHY W [...] COCO STERN Date: 2022-07-25 09:41 Normal [facility] US PREG GROWTHon 07-11-2022 US PREG [...] ESTEFANY BENNETT Date: 2022-07-11 19:28 Normal [facility] Covid-19 PCR (CVDTB)on 06-26 SARS-CoV-2 (COVID-19) RNA INESSA+probe Ql (Unsp spec) Not detected Normal NOT DETECTED [facility] Comment on above: Result Comment: When [...] for this test is supported by the [place] of [employer] and Human Service's declaration that [...] used). Performed By: #### C T/JAYNA #### [facility] [address] [place] [address] Dr. Donis Mancini GTT 3 HR PREGon 06-03-2022 Glucose [Mass/Vol] 94 mg/dL Normal 74-106 [facility] Comment on above: Performed By: #### U AMIC #### [facility] [address] [place] [address] Dr. Donis Mancini Glucose [Mass/Vol] 147 mg/dL Normal [facility] Comment on above: Performed By: #### U AMIC #### [facility] [address] [address] [address] Donis Mancini Glucose [Mass/Vol] 159 mg/dL Normal [facility] Comment on above: Performed By: #### U AMIC #### [facility] [address] [place] [address] Dr. Donis Mancini Glucose [Mass/Vol] 151 mg/dL Normal [facility] Comment on above: Performed By: #### U AMIC #### [facility] [address] [place] [address] Dr. Donis Mancini GLUCOSE - 1HRon 05-21-2022 Glucose [Mass/Vol] 141 mg/dL Critically high 74-106 [facility] Comment on above: Performed By: #### U AMIC #### [facility] [address] [place] [address] Dr. Donis Mancini HEMOGRAM AND PLATELon 2021 Hematocrit (Bld) [Volume fraction] 39.1 % Normal 36.0-48.0 [facility] Comment on above: Performed By: #### U AMIC #### [facility] [address] [place] [address] Dr. Donis Mancini Hemoglobin (Bld) [Mass/Vol] 13.1 g/dL Normal 12.0-16.0 [facility] Comment on above: Performed By: #### U AMIC #### [facility] [address] [place] [address] Dr. Donis Mancini MCH (RBC) [Entitic mass] 32.3 pg Normal 26.7-34.0 [facility] Comment on above: Performed By: #### U AMIC #### [facility] [address] [place] [address] Dr. Donis Mancini MCHC (RBC) [Mass/Vol] 33.5 g/dL Normal 29.9-35.2 [facility] Comment on above: Performed By: #### U AMIC #### [facility] [address] [address] [address] Donis Mancini MCV (RBC) [Entitic vol] 96.5 fL Normal 81.0-99.0 [facility] Comment on above: Performed By: #### U AMIC #### [facility] [address] [address] [address] Donis Mancini PLT 220 103/ul Normal 150-450 [facility] Comment on above: Performed By: #### U AMIC #### [facility] [address] [address] [address] Donis Mancini RBC 4.05 106/ul Critically low 4.20-5.40 [facility] Comment on above: Performed By: #### U AMIC #### [facility] [address] [place] [address] Dr. Donis Mancini WBC 12.8 103/ul Critically high 4.0-11.0 [facility] Comment on above: Performed By: #### U AMIC #### [facility] [address] [place] [address] Dr. Donis Mancini US PREG BIOPHYSICAL NO [...] ESTEFANY BENNETT Date: 2022-05-11 06:25 Normal [facility] CULTURE URINEon 05-10-2022 CULTURE URINE Culture Observations: MODERATE GROWTH OF MIXED GENITAL RAMBO. NO POTENTIAL PATHOGENS SEEN. Normal [facility] Comment on above: Performed By: #### U RCX #### [facility] [address] [address] [address] Donis Mancini UA RANDOM W/MICROSCOPICon BACTERIA LARGE Abnormal NONE SEEN [facility] Comment on above: Performed By: #### U AMIC ####[facility] [address] [place] [address]Dr. Donis Mancini Bilirubin Ql (U) Negative Normal NEGATIVE [facility] Comment on above: Performed By: #### U AMIC ####[facility] [address] [place] [address]Dr. Donis Mancini CAST NONE SEEN Normal NONE SEEN [facility] Comment on above: Performed By: #### U AMIC ####[facility] [address] [place] [address]Dr. Donis Mancini Clarity (U) CLEAR Normal CLEAR [facility] Comment on above: Performed By: #### U AMIC ####[facility] [address] [place] [address]Dr. Donis Mancini Color (U) YELLOW Normal YELLOW [facility] Comment on above: Performed By: #### U AMIC ####[facility] [address] [place] [address]Dr. Donis Mancini Crystals LM Nom (Urine sed) NONE SEEN Normal NONE SEEN [facility] Comment on above: Performed By: #### U AMIC ####[facility] [address] [place] [address]Dr. Donis Mancini Epithelial cells LM Ql (Urine sed) MODERATE Abnormal NONE SEEN /RARE [facility] Comment on above: Performed By: #### U AMIC ####[facility] [address] [place] [address]Dr. Donis Mancini Glucose Ql (U) 250 mg/dl Abnormal NEGATIVE [facility] Comment on above: Performed By: #### U AMIC ####[facility] [address] [place] [address]Dr. Donis Mancini Hemoglobin Ql (U) TRACE-INTACT Abnormal NEGATIVE [facility] Comment on above: Performed By: #### U AMIC ####[facility] [address] [place] [address]Dr. Donis Mancini Ketones Ql (U) Negative Normal NEGATIVE [facility] Comment on above: Performed By: #### U AMIC ####[facility] [address] [place] [address]Dr. Donis Mancini LEUKOCYTES LARGE Abnormal NEGATIVE [facility] Comment on above: Performed By: #### U AMIC ####[facility] [address] [place] [address]Dr. Donis Mancini MUCOUS NONE SEEN Normal NONE SEEN [facility] Comment on above: Performed By: #### U AMIC ####[facility] [address] [place] [address]Dr. Donis Mancini Nitrite Ql (U) Negative Normal NEGATIVE [facility] Comment on above: Performed By: #### U AMIC ####[facility] [address] [place], [place] [address]Dr. Donis Mancini pH (U) 6.0 [pH] Normal 5-9 [facility] Comment on above: Performed By: #### U AMIC ####[facility] [address] [place], [place] [address]Dr. Donis Mancini RBC 2-5 Abnormal 0-2 [facility] Comment on above: Performed By: #### U AMIC ####[facility] [address]ucoxifs[address] [place] [address]Dr. Donis Mancini SPEC GRAVITY <=1.005 Abnormal 1.005-<=1.02 5 [facility] Comment on above: Performed By: #### U AMIC ####[facility] [address] [place] [address]Dr. Donis Mancini UA PROTEIN Negative Normal NEGATIVE/ TRACE [facility] Comment on above: Performed By: #### U AMIC ####[facility] [address] [place] [address]Dr. Donis Mancini Urobilinogen Qn (U) 0.2 {Sarah'U}/dL Normal 0.2 - 1. 0 [facility] Comment on above: Performed By: #### U AMIC ####[facility] [address] [place] [address]Dr. Donis Mancini WBC 10-20 Abnormal NONE SEEN [facility] Comment on above: Performed By: #### U AMIC ####[facility] [address] [place] [address]Dr. Donis Mancini CULTURE URINEon 04-27-2022 CULTURE URINE Culture Observations: LIGHT GROWTH OF MIXED GENITAL RAMBO. NO POTENTIAL PATHOGENS SEEN. Normal [facility] Comment on above: Performed By: #### U RCX ####[facility] [address] [place], [place] [address]Dr. Donis Mancini UA (CLEAN/CATCH) LABORER PIPELINE/MICRO I F IND.on 04-27-2022 Bilirubin Ql (U) Negative Normal NEGATIVE [facility] Comment on above: Performed By: #### U ACSIND, UMICRO ####[facility] [address] [place], [place] [address]Dr. Donis Mancini Clarity (U) CLEAR Normal CLEAR [facility] Comment on above: Performed By: #### U ACSIND, ICRO ####[facility] [address]rd[address]uy[address] [place], [place] [address]Dr. Donis Mancini Color (U) LT. YELLOW Normal YELLOW [facility] Comment on above: Performed By: #### U ACSIND, UMICRO ####[facility] [address] [place], [place] [address]Dr. Donis Mancini Glucose Ql (U) Negative Normal NEGATIVE [facility] Comment on above: Performed By: #### U ACSIND, UMICRO ####[facility] [address]kebe[address] [place], [place] [address]Dr. Donis Mancini Hemoglobin Ql (U) Negative Normal NEGATIVE The [facility] Comment on above: Performed By: #### U ACSIND, UMICRO ####[facility] Yigslivesx[address] [place], [place] [address]Dr. Donis Mancini Ketones Ql (U) Negative Normal NEGATIVE [facility] Comment on above: Performed By: #### U ACSIND, UMICRO ####[facility] [address] [place] [address]Dr. Donis Mancini LEUKOCYTES SMALL Abnormal NEGATIVE [facility] Comment on above: Performed By: #### DONNA MONIQUE ####[facility] [address] [place] [address]Dr. Donis Mancini Nitrite Ql (U) Negative Normal NEGATIVE [facility] Comment on above: Performed By: #### DONNA MONIQUE ####[facility] [address]xbk[address] [place] [address]Dr. Donis Mancini pH (U) 7.0 [pH] Normal 5-9 [facility] Comment on above: Performed By: #### DONNA MONIQUE ####[facility] [address] [place] [address]Dr. Donis Mancini SPEC GRAVITY 1.015 Normal 1.005-<=1.02 5 [facility] Comment on above: Performed By: #### DONNA MONIQUE ####[facility] [address] [place] [address]Dr. Donis Mancini UA PROTEIN Negative Normal NEGATIVE/ TRACE [facility] Comment on above: Performed By: #### DONNA MONIQUE ####[facility] [address] [place] [address]Dr. Donis Mancini UR MICRO IND INDICATED Normal [facility] Comment on above: Performed By: #### DONNA MONIQUE ####[facility] [address] [place] [address]Dr. Donis Mancini Urobilinogen Qn (U) 0.2 {Sarah'U}/dL Normal 0.2 - 1. 0 [facility] Comment on above: Performed By: #### DONNA MONIQUE ####[facility] [address] [place] [address]Dr. Donis Mancini URINE MICROSCOPIC ONLYon BACTERIA MODERATE Abnormal NONE SEEN [facility] Comment on above: Performed By: #### DONNA MONIQUE ####[facility] [address] [place] [address]Dr. Donis Mancini Bacteria identified Cx Nom (U) INDICATED Normal [facility] Comment on above: Performed By: #### U NELSON UMICRO ####[facility] [address] [place] [address]Dr. Donis Mancini CAST NONE SEEN Normal NONE SEEN [facility] Comment on above: Performed By: #### U ACSWENDY UMICRO ####[facility] [address] [place] [address]Dr. Donis Mancini Crystals LM Nom (Urine sed) NONE SEEN Normal NONE SEEN [facility] Comment on above: Performed By: #### U NELSON UMICRO ####[facility] [address] [place] [address]Dr. Donis Mancini Epithelial cells LM Ql (Urine sed) MODERATE Abnormal NONE SEEN /RARE [facility] Comment on above: Performed By: #### U ACSWENDY UMICRO ####[facility] [address] [place] [address]Dr. Donis Mancini MUCOUS NONE SEEN Normal NONE SEEN [facility] Comment on above: Performed By: #### U NELSON UMICRO ####[facility] [address] [place] [address]Dr. Donis Mancini RBC NONE SEEN Abnormal 0-2 [facility] Comment on above: Performed By: #### U NELSON UMICRO ####[facility] [address] [place] [address]Dr. Donis Mancini WBC 2-5 Abnormal NONE SEEN [facility] Comment on above: Performed By: #### U ACSWENDY UMICRO ####[facility] [address] [place], [place] [address]Dr. Donis Mancini US KIDNEYSon 04-27-2022 US KIDNEYS [...] by: ANDREAS AN Date: 2022-04-27 17:48 Normal [facility] CULTURE URINEon 04-16-2022 CULTURE URINE Isolate [...] F Trimethoprim/Sulfame thoxazole <=20 S F Normal [facility] Comment on above: Performed By: #### U RCX #### [facility] [address] [place] [address] Dr. Donis Mancini US PREG ANATOMY SINGLEon [...] ESTEFANY BENNETT Date: 2022-04-12 22:22 Normal [facility] UA RANDOM W/MICROSCOPICon BACTERIA SMALL Abnormal NONE SEEN [facility] Comment on above: Performed By: #### U AMIC #### [facility] [address] [place] [address] Dr. Donis Mancini Bilirubin Ql (U) Negative Normal NEGATIVE [facility] Comment on above: Performed By: #### U AMIC #### [facility] [address] [place] [address] Dr. Donis Mancini CAST NONE SEEN Normal NONE SEEN [facility] Comment on above: Performed By: #### U AMIC #### [facility] [address] [place] [address] Dr. Donis Mancini Clarity (U) CLEAR Normal CLEAR [facility] Comment on above: Performed By: #### U AMIC #### [facility] [address] [place] [address] Dr. Donis Mancini Color (U) LT. YELLOW Normal YELLOW [facility] Comment on above: Performed By: #### U AMIC #### [facility] [address] [place] [address] Dr. Donis Mancini Crystals LM Nom (Urine sed) NONE SEEN Normal NONE SEEN [facility] Comment on above: Performed By: #### U AMIC #### [facility] [address] [address] [address] Donis Mancini Epithelial cells LM Ql (Urine sed) FEW Abnormal NONE SEEN /RARE [facility] Comment on above: Performed By: #### U AMIC #### [facility] [address] [address] [address] Donis Mancini Glucose Ql (U) Negative Normal NEGATIVE [facility] Comment on above: Performed By: #### U AMIC #### [facility] [address] [address] [address] Donis Mancini Hemoglobin Ql (U) Negative Normal NEGATIVE [facility] Comment on above: Performed By: #### U AMIC #### [facility] [address] [address] [address] Donis Mancini Ketones Ql (U) Negative Normal NEGATIVE [facility] Comment on above: Performed By: #### U AMIC #### [facility] [address] [address] [address] Donis Mancini LEUKOCYTES LARGE Abnormal NEGATIVE [facility] Comment on above: Performed By: #### U AMIC #### [facility] [address] [address] [address] Donis Mancini MUCOUS NONE SEEN Normal NONE SEEN [facility] Comment on above: Performed By: #### U AMIC #### [facility] [address] [address] [address] Donis Mancini Nitrite Ql (U) Negative Normal NEGATIVE [facility] Comment on above: Performed By: #### U AMIC #### [facility] [address] [address] [address] Donis Mancini pH (U) 5.5 [pH] Normal 5-9 [facility] Comment on above: Performed By: #### U AMIC #### [facility] [address] [place] [address] Dr. Donis Mancini RBC 0-2 Normal 0-2 [facility] Comment on above: Performed By: #### U AMIC #### [facility] [address] [address] [address] Donis Mancini SPEC GRAVITY <=1.005 Abnormal 1.005-<=1.02 5 [facility] Comment on above: Performed By: #### U AMIC #### [facility] [address] [address] [address] Donis Mancini UA PROTEIN Negative Normal NEGATIVE/ TRACE [facility] Comment on above: Performed By: #### U AMIC #### [facility] [address] [address] [address] Donis Mancini Urobilinogen Qn (U) 0.2 {Sarah'U}/dL Normal 0.2 - 1. 0 [facility] Comment on above: Performed By: #### U AMIC #### [facility] [address] [address] [address] Donis Mancini WBC 5-10 Abnormal NONE SEEN [facility] Comment on above: Performed By: #### U AMIC #### [facility] [address] [address] [address] Donis Mancini HEP B SURFACE ANTIGEN SCREEN on 01-23-2022 HBsAg Screen Negative Normal Negative [facility] Comment on above: Performed By: #### U AMIC #### [facility] [address] [address] [address] Donis Mancini HEPATITIS C VIRUS AB W/ REFL EX QUANTon 01-23-2022 HCV AB 0.1 s/co ratio Normal 0.0-0.9 [facility] Comment on above: Performed By: #### H CVPCRR ####[facility] [address] [place] [address]Dr. Donis Mancini Interpretation: Comment Normal [facility] Comment on above: Result Comment: Nega tive Not infected with HCV, unless recent infection is suspected or other evidence exists to indicate HCV infection. Performed By: #### H CVPCRR ####[facility] [address] [place] [address]Dr. Donis Mancini HIV 1 AND 2 WITH REFLEXon HIV Screen 4th Generation wRfx Non-Reactive Normal Non Reactive [facility] Comment on above: Result Comment: HIV Negative HIV-1/HIV-2 antibodies and HIV-1 p24 antigen were NOT detected. There is no laboratory evidence of HIV infection. Performed By: #### H IV12 ####[facility] [address] [place] [address]Dr. Donis Mancini RPR QUANTon 01-23-2022 Rapid Plasma Reagin, Quant Non-Reactive Normal NonRea<1:1 [facility] Comment on above: Result Comment: Plea se Note: This test does not meet current guidelines for screening and diagnosis of syphilis. This test is intended for following treatment response in patients being treated for syphilis infection. To screen for syphilis infection, a reflex cascade that includes both RPR and a treponema-specific assay should be utilized, such as Treponema pallidum (Syphilis) Screening Alfalfa (719668) or Rapid Plasma Reagin (RPR) Test With Reflex to Quantitative RPR and Confirmatory Treponema pallidum Antibodies (451025). Performed By: #### R PRQ ####[facility] [address] [place] [address]Dr. Donis Mancini RUBELLA AB IGGon 01-23-2022 Rubella Antibodies, IgG 1.60 index Normal Immune >0.99 [facility] Comment on above: Result Comment: Non- immune <0.90 Equivocal 0.90 - 0.99 Immune >0.99 Performed By: #### U AMIC #### [facility] [address] [place] [address] Dr. Donis Mancini CBC AUTO DIFFon 01-22-2022 BASO # 0.1 103/ul Normal 0.0-0.1 [facility] Comment on above: Performed By: #### U AMIC #### [facility] [address] [place] [address] Dr. Donis Mancini Basophils/100 WBC (Bld) 0.5 % Normal 0.2-2.0 [facility] Comment on above: Performed By: #### U AMIC #### [facility] [address] [place] [address] Dr. Donis Mancini EO # 0.6 103/ul Normal 0.0-0.7 [facility] Comment on above: Performed By: #### U AMIC #### [facility] [address] [place] [address] Dr. Donis Mancini Eosinophils/100 WBC (Bld) 5.1 % Normal 0.9-7.0 [facility] Comment on above: Performed By: #### U AMIC #### [facility] [address] [place] [address] Dr. Donis Mancini Erythrocyte distribution width (RBC) [Ratio] 12.0 % Normal 11.0-15.0 [facility] Comment on above: Performed By: #### U AMIC #### [facility] [address] [place] [address] Dr. Donis Mancini Hematocrit (Bld) [Volume fraction] 45.8 % Normal 36.0-48.0 [facility] Comment on above: Performed By: #### U AMIC #### [facility] [address] [place] [address] Dr. Donis Mancini Hemoglobin (Bld) [Mass/Vol] 15.3 g/dL Normal 12.0-16.0 [facility] Comment on above: Performed By: #### U AMIC #### [facility] [address] [place] [address] Dr. Donis Mancini IG # 0.03 10e3/ul Normal 0.00-0.03 [facility] Comment on above: Performed By: #### U AMIC #### [facility] [address] [place] [address] Dr. Donis Mancini IG % 0.3 % Normal 0.0-0.5 [facility] Comment on above: Performed By: #### U AMIC #### [facility] [address] [place] [address] Dr. Donis Mancini LYMPH # 1.7 103/ul Normal 1.2-3.8 [facility] Comment on above: Performed By: #### U AMIC #### [facility] [address] [place] [address] Dr. Donis Mancini Lymphocytes/100 WBC (Bld) 15.9 % Critically low 20.5-60.0 [facility] Comment on above: Performed By: #### U AMIC #### [facility] [address] [place] [address] Dr. Donis Mancini MANUAL DIFF REQ NO [facility] Comment on above: Performed By: #### U AMIC #### [facility] [address] [place] [address] Dr. Donis Mancini MCH (RBC) [Entitic mass] 31.5 pg Normal 26.7-34.0 [facility] Comment on above: Performed By: #### U AMIC #### [facility] [address] [place] [address] Dr. Donis Mancini MCHC (RBC) [Mass/Vol] 33.4 g/dL Normal 29.9-35.2 [facility] Comment on above: Performed By: #### U AMIC #### [facility] [address] [place] [address] Dr. Donis Mancini MCV (RBC) [Entitic vol] 94.2 fL Normal 81.0-99.0 [facility] Comment on above: Performed By: #### U AMIC #### [facility] [address] [place] [address] Dr. Donis Mancini MONO # 0.6 103/ul Normal 0.3-0.8 [facility] Comment on above: Performed By: #### U AMIC #### [facility] [address] [place] [address] Dr. Donis Mancini Monocytes/100 WBC (Bld) 5.8 % Normal 1.7-12.0 [facility] Comment on above: Performed By: #### U AMIC #### [facility] [address] [place] [address] Dr. Donis Mancini NEUT # 7.8 103/ul Critically high 1.4-6.5 [facility] Comment on above: Performed By: #### U AMIC #### [facility] [address] [place] [address] Dr. Donis Mancini Neutrophils/100 WBC (Bld) 72.4 % Normal 43.0-75.0 [facility] Comment on above: Performed By: #### U AMIC #### [facility] [address] [address] [address] Donis Mancini Platelet mean volume (Bld) [Entitic vol] 9.9 fL Normal 9.5-13.5 [facility] Comment on above: Performed By: #### U AMIC #### [facility] [address] [address] [address] Donis Mancini PLT 281 103/ul Normal 150-450 [facility] Comment on above: Performed By: #### U AMIC #### [facility] [address] [address] [address] Donis Mancini RBC 4.86 106/ul Normal 4.20-5.40 [facility] Comment on above: Performed By: #### U AMIC #### [facility] [address] [place] [address] Dr. Donis Mancini WBC 10.8 103/ul Normal 4.0-11.0 [facility] Comment on above: Performed By: #### U AMIC #### [facility] [address] [address] [address] Donis Mancini CULTURE URINEon 01-22-2022 CULTURE URINE Culture Observations: LIGHT GROWTH OF MIXED GENITAL RAMBO. NO POTENTIAL PATHOGENS SEEN. Normal [facility] Comment on above: Performed By: #### U RCX #### [facility] [address] [place] [address] Dr. Donis Mancini GLYCOHEMOGLOBIN A1Con 2021 ADA RECOMMENDATION SEE BELOW Normal [facility] Comment on above: Result Comment: ADA RECOMMENDED LIMIT 4.0 - 6.0 ADA THERAPEUTIC TARGET < 7.0 ACTION SUGGESTED > 7.0 Performed By: #### A 1C ####[facility] [address] [place] [address]Dr. Donis Mancini Glucose [Mass/Vol] 100 mg/dL Normal [facility] Comment on above: Performed By: #### A 1C ####[facility] [address] [place] [address]Dr. Donis Mancini HbA1c (Bld) [Mass fraction] 5.1 % Normal 4.5-6.2 [facility] Comment on above: Performed By: #### A 1C ####[facility] [address] [place], [place] [address]Xa. Donis Mancini SEAN BOX TEST PT SEND OUTo n 01-22-2022 SENT TO REF LAB 01/22/2022 Normal [facility] Comment on above: Performed By: #### N BOX ####[facility] [address] [place], [place] [address]Yw. Donis Mancini TYPE AND SCREENon 01-22-2022 TYPE AND SCREEN Negative Normal [facility] Comment on above: Performed By: #### T NS #### [facility] [address] [address] [address] Donis Mancini US PREG TVon 01-17-2022 [...] COCO STERN Date: 2022-01-17 09:34 Normal [facility] Provider Letteron 04-06-2021 Provider Letter April 06, 2021 Dear Vimal, We have been trying to reach you with no success. It is important that you return our call regarding your appointment upon receiving this letter. Also, at the time of your call, please provide us with your current information. Thank you for your prompt attention to this matter. Sincerely, [facility] [address] [place] [address] [facility] Ambulatory Clinical Summaryo n 03-10-2021 Ambulatory Clinical Summary {[id number]}CD:[id number] [facility] Ambulatory Clinical Summaryo n 03-05-2021 Ambulatory Clinical Summary {[id number]}CD:[id number] [facility] Gynecology Phone Visit- Tele healthon 03-05-2021 [...] only communication with the patient located at [address] [place] [address] [phone], with no one else. If it is [...] Ordered: Telephone Est 5 to 10 minutes [phone] Follow-up With When Contact Information Joycelyn RENNER In [address] [place] [address]- Additional Instructions: Problem List/Past Medical History Ongoing Contraception management Visit for routine press tender exam Historical Blood transfusion Lead poisoning Procedure/Surgical [...] hepatitis B adult vaccine 2001 Recorded Normal [facility] Comment on above: Result Comment: Elec tronically Signed By: Joycelyn RENNER\.jessica\Date and Time Signed: 03/05/21 16:35 EDT Ambulatory Clinical Summaryo n 03-04-2021 Ambulatory Clinical Summary {[id number] Normal [facility] Coding Summary.on 12-18-2020 Coding Summary. CODING DATE: 12/18/2020 FINAL [facility] STATUS: Home (Routine DC) PAYOR: [place] ADMIT DX: REASON FOR VISIT DX: U07.1 [...] CphT Date Saved: 12/18/2020 12:44 pm Normal [facility] Physician Orderon 12-16-2020 Physician Order [id number] Normal [facility] Rapid COVID Antigen ([facility])on 12-16-2020 Rapid COV Int NEG Ctl Pass Normal [facility] Comment on above: Performed By: #### 2 [id number] #### [facility] [address] [place] [address] Rapid COV Int POS Ctl Pass Normal [facility] Comment on above: Performed By: #### 2 [id number] #### [facility] [address] [place] [address] SARS-CoV-2 (COVID-19) RNA INESSA+probe Ql (Unsp spec) Detected Abnormal Not Detected [facility] Comment on above: Result Comment: Left a message for callback. 12/16/2020 11:42:47 EDT Results faxed to infection control. The [employer] Veritor? System for Rapid Detection of SARS-CoV-2 [...] For in vitro diagnostic use. In the [facility], only for use under an Emergency [...] other viruses or pathogens; and, in the [facility], this test is only authorized for the duration of the declaration that circumstances exist justifying the authorization of emergency use of in vitro diagnostics for detection and/or diagnosis of the virus that causes COVID-19 under Section 564(b)(1) of the Act, 21 U.S.C. ? 360bbb-3(b)(1), unless the authorization is terminated or revoked sooner. Performed By: #### 2 [id number] #### [facility] [address] [place] [address] Employed in Healthcare [facility] Comment on above: Performed By: #### 2 [id number] #### [facility] [address] [place] [address] First Test Unknown Normal [facility] Comment on above: Performed By: #### 2 [id number] #### [facility] [address] [place] [address] Hospitalized? NO Normal [facility] Comment on above: Performed By: #### 2 [id number] #### [facility] [address] [place] [address] ICU NO Normal [facility] Comment on above: Performed By: #### 2 [id number] #### [facility] [address] [place] [address] ? Unknown Normal [facility] Comment on above: Performed By: #### 2 [id number] #### [facility] [address] [place] [address] Resides in a Congregate Care Setting Unknown Normal [facility] Comment on above: Performed By: #### 2 [id number] #### [facility] [address] [place] [address] Symptomatic as defined by CDC YES Normal [facility] Comment on above: Performed By: #### 2 [id number] #### [facility] [address] [place] [address] [facility] Clinical Summary {[id number] Normal [facility] Vital Signs Date Time Vital Sign Value Performing Clinician Facility 06-12-2025 15:22-0400 Body mass index (BMI) [Ratio] 31.96 kg/m2 Rossana BISWAS Work Phone: [facility] 06-12-2025 15:22-040 Body weight 81.83 kg Rossana BISWAS Work Phone: [facility] 06-12-2025 15:22-0400 Diastolic blood pressure 90 mm[Hg] Rossana BISWAS Work Phone: [facility] 06-12-2025 15:22-0400 Systolic blood pressure 144 mm[Hg] Rossana BISWAS Work Phone: [facility] 05-28-2025 10:48-0400 Body mass index (BMI) [Ratio] 32.06 kg/m2 Jose Michael DO Work Phone: [facility] 05-28-2025 10:48-0400 Body weight 82.1 kg Jose Michael DO Work Phone: [facility] 05-28-2025 10:48-0400 Diastolic blood pressure 80 mm[Hg] Jose Michael DO Work Phone: [facility] 05-28-2025 10:48-0400 Systolic blood pressure 136 mm[Hg] Jose Michael DO Work Phone: [facility] 05-22-2025 15:02-0400 Body mass index (BMI) [Ratio] 31.49 kg/m2 Jose Michael DO Work Phone: [facility] 05-22-2025 15:02-0400 Body weight 80.63 kg Jose Michael DO Work Phone: [facility] 05-22-2025 15:02-0400 Diastolic blood pressure 92 mm[Hg] Jose Michael DO Work Phone: [facility] 05-22-2025 15:02-0400 Systolic blood pressure 138 mm[Hg] Jose Michael DO Work Phone: [facility] 05-14-2025 14:59-0400 Body mass index (BMI) [Ratio] 31.35 kg/m2 Jose Michael DO Work Phone: [facility] 05-14-2025 14:59-0400 Body weight 80.29 kg Jose Michael DO Work Phone: [facility] 05-14-2025 14:59-0400 Diastolic blood pressure 90 mm[Hg] Jose Michael DO Work Phone: [facility] 05-14-2025 14:59-0400 Systolic blood pressure 140 mm[Hg] Jose Michael DO Work Phone: [facility] 05-13-2025 16:11-0400 Body weight 79.83 kg Marjorie Rico RN Work Phone: [facility] 04-30-2025 11:52-0400 Body mass index (BMI) [Ratio] 31 kg/m2 Rossana Rachel PA Work Phone: [facility] 04-30-2025 11:52-0400 Body weight 79.38 kg Rossana Rachel PA Work Phone: [facility] 04-30-2025 11:52-0400 Diastolic blood pressure 94 mm[Hg] Rossana Rachel PA Work Phone: [facility] 04-30-2025 11:52-0400 Systolic blood pressure 140 mm[Hg] Rossana Alexander PA Work Phone: [facility] 04-11-2025 15:38-0400 Body mass index (BMI) [Ratio] 30.2 kg/m2 Rossana Rachel PA Work Phone: [facility] 04-11-2025 15:38-0400 Body weight 77.34 kg Rossana Rachel PA Work Phone: [facility] 04-11-2025 15:38-0400 Diastolic blood pressure 100 mm[Hg] Rossana Rachel PA Work Phone: [facility] 04-11-2025 15:38-0400 Systolic blood pressure 142 mm[Hg] Rossana Alexander PA Work Phone: [facility] 03-14-2025 11:36-0400 Body mass index (BMI) [Ratio] 29.23 kg/m2 Jose Michael DO Work Phone: [facility] 03-14-2025 11:36-0400 Body weight 74.84 kg Jose Michael DO Work Phone: [facility] 03-14-2025 11:36-0400 Diastolic blood pressure 76 mm[Hg] Jose Michael DO Work Phone: [facility] 03-14-2025 11:36-0400 Systolic blood pressure 112 mm[Hg] Jose Michael DO Work Phone: [facility] 02-20-2025 16:08-0400 Body mass index (BMI) [Ratio] 28.83 kg/m2 Rossana Alexander PA Work Phone: [facility] 02-20-2025 16:08-0400 Body weight 73.82 kg Rossana Rachel PA Work Phone: [facility] 02-20-2025 16:08-0400 Diastolic blood pressure 82 mm[Hg] Rossana Alexander PA Work Phone: [facility] 02-20-2025 16:08-0400 Systolic blood pressure 110 mm[Hg] Rossana Alexander PA Work Phone: [facility] 01-14-2025 15:42-0400 Body mass index (BMI) [Ratio] 27.3 kg/m2 Jose Michael DO Work Phone: [facility] 01-14-2025 15:42-0400 Body weight 69.91 kg Jose Michael DO Work Phone: [facility] 01-14-2025 15:42-0400 Diastolic blood pressure 70 mm[Hg] Jose Michael DO Work Phone: [facility] 01-14-2025 15:42-0400 Systolic blood pressure 120 mm[Hg] Jose Michael DO Work Phone: [facility] 08-20-2024 10:55-0500 Body mass index (BMI) [Ratio] 25.93 kg/m2 Rossana Archel PA Work Phone: [facility] 08-20-2024 10:55-0500 Body weight 66.41 kg Rossana Rachel PA Work Phone: [facility] 08-20-2024 10:55-0500 Diastolic blood pressure 70 mm[Hg] Rossana Rachel PA Work Phone: [facility] 08-20-2024 10:55-0500 Systolic blood pressure 120 mm[Hg] Rossana Ramos PA Work Phone: [facility] 08-06-2024 09:38-0500 Body mass index (BMI) [Ratio] 25.47 kg/m2 Jose Michael DO Work Phone: [facility] 08-06-2024 09:38-0500 Body weight 65.23 kg Jose Michael DO Work Phone: [facility] 08-06-2024 09:38-0500 Diastolic blood pressure 70 mm[Hg] Jose Michael DO Work Phone: [facility] 08-06-2024 09:38-0500 Systolic blood pressure 120 mm[Hg] Jose Michael DO Work Phone: [facility] 06-29-2024 09:12-0400 Body mass index (BMI) [Ratio] 24.58 kg/m2 [facility] 06-29-2024 09:12-0400 Body weight 62.94 kg [facility] Nurse [facility] 06-29-2024 09:12-0400 Diastolic blood pressure 72 mm[Hg] [facility] Nurse [facility] 06-29-2024 09:12-0400 Systolic blood pressure 122 mm[Hg] [facility] Nurse [facility] 12-26-2022 13:45-0400 Body height 160.02 cm Jennifer Huston Other [facility] Other 12-26-2022 13:45-0400 Body mass index (BMI) [Ratio] 27.45 kg/m2 Jennifer Huston Other [facility] Other 12-26-2022 13:45-0400 Body temperature 97 [degF] Jennifer Huston Other [facility] Other 12-26-2022 13:45-0400 Body weight 70.31 kg Jennifer Huston Other [facility] Other 12-26-2022 13:45-0400 Diastolic blood pressure 89 mm[Hg] Jennifer Huston Other [facility] Other 12-26-2022 13:45-0400 Respiratory rate 18 /min Jennifer Huston Other [facility] Other 12-26-2022 13:45-0400 SaO2% (BldA) [Mass fraction] 100 % Jennifer Huston Other [facility] Other 12-26-2022 13:45-0400 Systolic blood pressure 135 mm[Hg] Jennifer Huston Other [facility] Other Encounters Encounter Date Encounter Type Care Provider Facility Start: 06-12-2025 End: 06-12-2025 flow sheet Rossana BISWAS Work Phone: [facility] Comment on above: Third trimester preg alysa ([facility]); 34 weeks gestation of ([facility]) Start: 06-12-2025 End: 06-12-2025 Bamboo flowsheet Rossana BISWAS Work Phone: [facility] Start: 06-12-2025 End: 06-12-2025 Bamboo flowsheet Rossana BISWAS Work Phone: [facility] Start: 06-11-2025 End: 06-11-2025 ambulatory [facility] Start: 06-08-2025 End: 06-08-2025 Clinisync Result Encounter Rossana BISWAS Work Phone: [facility] Unsolicited Start: 06-08-2025 End: 06-08-2025 Clinisync Result Encounter Rossana BISWAS Work Phone: [facility] Unsolicited Start: 06-05-2025 End: 06-05-2025 Telephone encounter Xenia London RD Work Phone: [facility] Start: 06-04-2025 End: 06-04-2025 Office consultation new/estab patient 60 min Manas Martin MD Work Phone: [facility] Comment on above: Poor growth af fecting management of mother in third trimester, single or unspecified fetus (Primary Dx) Start: 06-04-2025 End: 06-04-2025 Orders Only Marii Yoo RN [facility] Comment on above: Poor growth af [...] abstracting Scanning Provider External [facility] Start: 05-28-2025 End: 05-28-2025 Bamboo flowsheet Jose Michael DO Work Phone: [facility] Start: 05-28-2025 End: 05-28-2025 Bamboo flowsheet Jose Michael DO Work Phone: [facility] Start: 05-28-2025 End: 05-28-2025 Telephone encounter Chante TEJEDA Work Phone: [facility] Start: 05-28-2025 End: 05-28-2025 ambulatory JOSE MICHAEL Not Available Start: 05-28-2025 End: 05-28-2025 flow sheet Jose Michael DO Work Phone: [facility] Comment on above: Third trimester preg alysa ([facility]); 32 weeks gestation of ([facility]); Gestational diabetes mellitus (GDM), antepartum, gestational diabetes method of control unspecified ([facility]); induced hypertension, antepartum ([facility]) Start: 05-25-2025 End: 05-25-2025 Clinisync Result Encounter Rossana BISWAS Work Phone: [facility] Unsolicited Start: 05-25-2025 End: 05-25-2025 Clinisync Result Encounter Rossana BIWSAS Work Phone: [facility] Unsolicited Start: 05-22-2025 End: 05-22-2025 ambulatory JOSE MICHAEL Not Available Start: 05-22-2025 End: 05-22-2025 flow sheet Jose Michael DO Work Phone: [facility] Comment on above: Third trimester preg alysa ([facility]); 31 weeks gestation of ([facility]) Start: 05-22-2025 End: 05-22-2025 Bamboo flowsheet Jose Michael DO Work Phone: [facility] Start: 05-22-2025 End: 05-22-2025 Bamboo flowsheet Jose Michael DO Work Phone: [facility] Start: 05-21-2025 End: 05-21-2025 Telephone encounter Chante TEJEDA Work Phone: [facility] Start: 05-20-2025 End: 05-20-2025 Clinisync Result [...] Unsolicited Start: 05-14-2025 End: 05-14-2025 ambulatory JOSE HENDRICKSO Not Available Start: 05-14-2025 End: 05-14-2025 flow sheet Jose Michael DO Work Phone: [facility] Comment on above: Third trimester preg alysa ([facility]); 30 weeks gestation of ([facility]); induced hypertension, antepartum ([facility]) Start: 05-14-2025 End: 05-14-2025 Bamboo flowsheet Jose Michael DO Work Phone: [facility] Start: 05-14-2025 End: 05-14-2025 Bamboo flowsheet Jose Michael DO Work Phone: [facility] Start: 05-13-2025 End: 05-13-2025 ambulatory Marjorie Rico RN Work Phone: [facility] Comment on above: Gestational diabetes mellitus (GDM) in third trimester, gestational diabetes method of control unspecified Start: 05-11-2025 End: 05-11-2025 Clinisync Result Encounter Rossana BISWAS Work Phone: [facility] Unsolicited Start: 05-11-2025 End: 05-11-2025 Clinisync Result Encounter Rossana BISWAS Work Phone: [facility] Unsolicited Start: 05-10-2025 End: 05-10-2025 Chart abstracting Scanning Provider External [facility] Start: 05-06-2025 End: 05-06-2025 Clinisync Result Encounter Rossana BISWAS Work Phone: [facility] Unsolicited Start: 05-06-2025 End: 05-06-2025 Clinisync Result Encounter Rossana Rachel PA Work [...] flowsheet Rossana Ramos TRUE Work Phone: [facility] Start: 04-30-2025 End: 04-30-2025 ambulatory ROSSANA RAMOS Not Available Start: 04-30-2025 End: 04-30-2025 Patient encounter status Rossana Alexander PA Work Phone: [facility] Work Phone: Start: 04-30-2025 End: 04-30-2025 flow sheet Rossana BISWAS Work Phone: [facility] Comment on above: BP check; -induced hypertension in third trimester ([facility]); Gestational diabetes mellitus (GDM) in third trimester, gestational diabetes method of control unspecified ([facility]) Start: 04-27-2025 End: 04-27-2025 Clinisync Result Encounter Rossana Alexander PA Work Phone: [facility] Unsolicited Start: 04-27-2025 End: 04-27-2025 Clinisync Result Encounter Rossana BISWAS Work Phone: [facility] Unsolicited Start: 04-25-2025 End: 04-25-2025 flow sheet Rossana BISWAS Work Phone: [facility] Comment on above: Second trimester pre gnancy ([facility]); 27 weeks gestation of ([facility]); induced hypertension, antepartum ([facility]) Start: 04-25-2025 End: 04-25-2025 ambulatory ROSSANA RAMOS Not Available Start: 04-25-2025 End: 04-25-2025 Bamboo flowsheet Rossana Ramos PA Work Phone: [facility] Start: 04-25-2025 End: 04-25-2025 Bamboo flowsheet Rossana BISWAS Work Phone: [facility] Start: 04-11-2025 End: 04-11-2025 ambulatory ROSSANA RAMOS Not Available Start: 04-11-2025 End: 04-11-2025 flow sheet Rossana BISWAS Work Phone: [facility] Comment on above: Second trimester pre gnancy ([facility]); 25 weeks gestation of ([facility]); Diabetes mellitus screening; Elevated BP without diagnosis of hypertension Start: 04-11-2025 End: 04-11-2025 Bamboo flowsheet Rossana BISWAS Work Phone: [facility] Start: 04-11-2025 End: 04-11-2025 Bamboo flowsheet Rossana BISWAS Work Phone: [facility] Start: 03-25-2025 End: 03-25-2025 Clinisync Result Encounter Jose Mcihael DO Work Phone: [facility] Unsolicited Start: 03-25-2025 End: 03-25-2025 Clinisync Result Encounter Jose Michael DO Work Phone: [facility] Unsolicited Start: 03-14-2025 End: 03-14-2025 Bamboo flowsheet Jose Michael DO Work Phone: [facility] Start: 03-14-2025 End: 03-14-2025 Bamboo flowsheet Jose Michael DO Work Phone: [facility] Start: 03-14-2025 End: 03-14-2025 ambulatory JOSE MICHAEL Not Available Start: 03-14-2025 End: 03-14-2025 flow sheet Jose Michael DO Work Phone: [facility] Comment on above: Second trimester pre gnancy ([facility]); 21 weeks gestation of ([facility]) Start: 03-08-2025 End: 03-08-2025 Clinisync Result Encounter Jose Michael DO Work Phone: [facility] External Department Unsolicited Start: 03-08-2025 End: 03-08-2025 Clinisync Result Encounter Jose Michael DO Work Phone: [facility] External Department Unsolicited Start: 02-20-2025 End: 02-20-2025 Patient encounter procedure Rossana BISWAS Work Phone: [facility] Healthcare Start: 02-20-2025 End: 02-20-2025 flow sheet Rossana BISWAS Work Phone: [facility] Comment on above: Screening, , for anatomic survey; Well woman exam with routine gynecological exam; STD exposure; Second trimester ; 18 weeks gestation of ; Urinary frequency Start: 02-20-2025 End: 02-20-2025 ambulatory ROSSANA RAMOS Not Available Start: 02-20-2025 End: 02-20-2025 Bamboo flowsheet Rossana BISWAS Work Phone: [facility] Start: 02-20-2025 End: 02-23-2025 Bamboo flowsheet Rossana BISWAS Work Phone: [facility] Start: 02-20-2025 End: 02-23-2025 Clinisync Result Encounter Rossana BISWAS Work Phone: [facility] External Department Unsolicited Start: 02-20-2025 End: 02-22-2025 [...] 08-18-2024 End: 08-18-2024 Clinisync Result Encounter Jose Micahel DO Work Phone: [facility] Unsolicited Start: 08-18-2024 End: 08-18-2024 Clinisync Result Encounter Jose Michael DO Work Phone: [facility] Unsolicited Start: 08-10-2024 End: 08-10-2024 Clinisync Result Encounter Jose Michael DO Work Phone: [facility] Unsolicited Start: 08-10-2024 End: 08-10-2024 Clinisync Result Encounter Jose Michael DO Work Phone: [facility] Unsolicited Start: 08-10-2024 End: 08-10-2024 ambulatory PHYSICIAN NO [facility] Work Phone: Start: 08-10-2024 End: 08-10-2024 Departed Referred PHYSICIAN NO [facility] Start: 08-06-2024 End: 08-06-2024 Bamboo flowsheet [...] 12-26-2022 End: 12-26-2022 ambulatory Jennifer Huston Other [facility] Other Start: 12-26-2022 End: 12-26-2022 Patient encounter procedure [employer] ENGINE[employer]C Jennifer Huston Work Phone: [facility] Work Phone: [...] Facility:[facility] Start: 06-03-2022 End: 06-04-[address] JSOE RODRIGUEZ . 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 Jennifer Huston Work Phone: Start: 11-02-2022 Cytp cerv/vag auto t hin layer prep mnl screen Jose Hendrickso DO Work Phone: Start: 08-10-2022 Delivery of [...] malign ant neoplasm of cervix Pap Smear [facility] Start: 06-04-2026 End: 06-04-2026 US MFM with or without consult US MFM with or without consult Imaging Routine Poor growth affecting management of mother in third trimester, single or unspecified fetus Gestational diabetes mellitus (GDM) in third trimester, gestational diabetes method of control unspecified Expected: 06/04/2026 (Approximate), Expires: 06/04/2026 [facility] Work Phone: Comment on above: Expected: 06/04/2026 (Approximate), Expires: 06/04/2026 Start: 06-24-2025 End: 06-24-2025 Patient encounter procedure 06/24/2025 2:15 PM EDT Appointment [facility] [address] [place] [address] [facility] Start: 06-19-2025 End: 06-19-2025 Patient encounter procedure 06/19/2025 2:30 PM EDT Routine [facility] [address] [place] [phone] Jose Rodriguez DO [address] [place] [address] [facility] Start: 06-18-2025 End: 06-18-2025 Patient encounter procedure 06/18/2025 3:30 PM EDT Appointment [facility] [address] [place] [address] [facility] Start: 06-12-2025 End: 06-12-2025 Patient encounter procedure 06/12/2025 3:00 PM EDT Routine [facility] [place] [address] [place] [phone] Rossana Ramos PA [address] [place] [address] [facility] Start: 06-11-2025 End: 06-11-2025 Patient encounter procedure 06/11/2025 8:00 AM EDT Appointment [facility] [address] [place] [address] [facility] Start: 06-04-2025 End: 06-04-2025 Patient encounter procedure 06/04/2025 1:00 PM EDT Appointment [facility] [address] [place] [phone] Jose Rodriguez R, DO [address] [place] [address] [facility] Start: 06-04-2025 Subsequent hospital visit by physician 06/04/2025 1:00 PM EDT Hospital Encounter [facility] [address] [place] [phone] Jose Rodriguez R, DO [address] [place] [address] [facility] Start: 05-28-2025 End: 05-28-2025 Patient encounter procedure 05/28/2025 10:30 AM EDT Routine [facility] [address] [place] [phone] Jose Rodriguez, DO [address] [place] [address] [facility] Start: 05-27-2025 Influenza vaccination N [facility] Start: 05-22-2025 End: 05-22-2025 Patient encounter procedure 05/22/2025 2:40 PM EDT Routine [facility] [address] [place] [address] Jose Rodriguez, DO [address] [place] [place] [address] [facility] Start: 05-14-2025 End: 05-14-2025 Patient encounter procedure 05/14/2025 2:40 PM EDT Routine [facility] [address] [place] [address] Jose Rodriguez, DO [address] [place] [address] [facility] Start: 05-14-2025 End: 05-14-2026 Alanine aminotransferase [Enzymatic activity/volume] in Serum or Plasma ALT Lab Routine induced hypertension, antepartum ([facility]) Expected: 05/14/2025 (Approximate), Expires: 05/14/2026 [facility] Comment on above: Expected: 05/14/2025 (Approximate), Expires: 05/14/2026 Start: 05-14-2025 End: 05-14-2026 Aspartate aminotransferase [Enzymatic activity/volume] in Serum or Plasma AST Lab Routine induced hypertension, antepartum ([facility]) Expected: 05/14/2025 (Approximate), Expires: 05/14/2026 [facility] Comment on above: Expected: 05/14/2025 (Approximate), Expires: 05/14/2026 Start: 05-14-2025 End: 05-14-2026 CBC W Auto Differential panel - Blood CBC and differential Lab Routine induced hypertension, antepartum ([facility]) Expected: 05/14/2025 (Approximate), Expires: 05/14/2026 [facility] Comment on above: Expected: 05/14/2025 (Approximate), Expires: 05/14/2026 Start: 05-14-2025 End: 05-14-2026 Creatinine [Mass/volume] in Serum or Plasma Creatinine Lab Routine induced hypertension, antepartum (HHS-HCC) Expected: 05/14/2025 (Approximate), Expires: 05/14/2026 [facility] Work Phone: Comment on above: Expected: 05/14/2025 (Approximate), Expires: 05/14/2026 Start: 05-14-2025 End: 05-14-2026 Lactate dehydrogenase [Enzymatic activity/volume] in Serum or Plasma by Lactate to pyruvate reaction Lactate dehydrogenase Lab Routine induced hypertension, antepartum (HHS-HCC) Expected: 05/14/2025, Expires: 05/14/2026 [facility] Comment on above: Expected: 05/14/2025 , Expires: 05/14/2026 Start: 05-14-2025 End: 05-14-2026 Protein, urine, 24 hour Protein, urine, 24 hour Lab Routine induced hypertension, antepartum (HHS-HCC) Expected: 05/14/2025 (Approximate), Expires: 05/14/2026 [facility] Comment on above: Expected: 05/14/2025 (Approximate), Expires: 05/14/2026 Start: 05-14-2025 End: 05-14-2026 Pt and ptt Pt and ptt Lab Routine induced hypertension, antepartum (HHS-HCC) Expected: 05/14/2025, Expires: 05/14/2026 [facility] Comment on above: Expected: 05/14/2025 , Expires: 05/14/2026 Start: 05-14-2025 End: 05-14-2026 Urate [Mass/volume] in Serum or Plasma Uric acid Lab Routine induced hypertension, antepartum (HHS-HCC) Expected: 05/14/2025 (Approximate), Expires: 05/14/2026 [facility] Comment on above: Expected: 05/14/2025 (Approximate), Expires: 05/14/2026 Start: 05-14-2025 End: 05-14-2026 Urea nitrogen [Mass/volume] in Serum or Plasma BUN Lab Routine induced hypertension, antepartum (HHS-HCC) Expected: 05/14/2025, Expires: 05/14/2026 [facility] Comment on above: Expected: 05/14/2025 , Expires: 05/14/2026 Start: 05-13-2025 End: 05-13-2025 ambulatory 05/13/2025 1:30 PM EDT Support Visit Maternal- Medicine at [facility] [address] [facility] [place] [address] Marjorie Rico RN [address] [place] [address] Xenia London, RD [address], [address] [place] [address] Maternal- Medicine at [facility] Start: 04-30-2025 End: 10-31-2025 US biophysical profile w non stress test US biophysical profile w non stress test Imaging Routine -induced hypertension in third trimester (HHS-HCC) Gestational diabetes mellitus (GDM) in third trimester, gestational diabetes method of control unspecified ([facility]-H[facility]) Expected: 04/30/2025 (Approximate), Expires: 10/31/2025 [facility] Work Phone: Comment on above: Expected: 04/30/2025 (Approximate), Expires: 10/31/2025 Start: 04-30-2025 End: 08-30-2025 US for US OB follow up transabdominal approach Imaging Routine -induced hypertension in third trimester (HHS-HCC) Gestational diabetes mellitus (GDM) in third trimester, gestational diabetes method of control unspecified (HHS-HCC) Expected: 04/30/2025, Expires: 08/30/2025 [facility] Comment on above: Expected: 04/30/2025 , Expires: 08/30/2025 Start: 04-30-2025 End: 04-30-2025 Patient encounter procedure 04/30/2025 10:50 AM EDT Routine [facility] [address] [place] [id number] Rossana Ramos PA [address] [place] [address] [facility] Start: 04-25-2025 End: 04-25-2025 Patient encounter procedure [facility] Comment on above: Arrived Start: 04-25-2025 End: 04-25-2026 Alanine aminotransferase [Enzymatic activity/volume] in Serum or Plasma ALT Lab Routine induced hypertension, antepartum (HHS-HCC) Expected: 04/25/2025 (Approximate), Expires: 04/25/2026 [facility] Comment on above: Expected: 04/25/2025 (Approximate), Expires: 04/25/2026 Start: 04-25-2025 End: 04-25-2026 Aspartate aminotransferase [Enzymatic activity/volume] in Serum or Plasma AST Lab Routine induced hypertension, antepartum (HHS-HCC) Expected: 04/25/2025 (Approximate), Expires: 04/25/2026 [facility] Comment on above: Expected: 04/25/2025 (Approximate), Expires: 04/25/2026 Start: 04-25-2025 End: 04-25-2026 CBC W Auto Differential panel - Blood CBC and differential Lab Routine induced hypertension, antepartum (HHS-HCC) Expected: 04/25/2025 (Approximate), Expires: 04/25/2026 [facility] Comment on above: Expected: 04/25/2025 (Approximate), Expires: 04/25/2026 Start: 04-25-2025 End: 04-25-2026 Creatinine [Mass/volume] in Serum or Plasma Creatinine Lab Routine induced hypertension, antepartum (HHS-HCC) Expected: 04/25/2025 (Approximate), Expires: 04/25/2026 [facility] Work Phone: Comment on above: Expected: 04/25/2025 (Approximate), Expires: 04/25/2026 Start: 04-25-2025 End: 04-25-2026 Lactate dehydrogenase [Enzymatic activity/volume] in Serum or Plasma by Lactate to pyruvate reaction Lactate dehydrogenase Lab Routine induced hypertension, antepartum (HHS-HCC) Expected: 04/25/2025, Expires: 04/25/2026 [facility] Comment on above: Expected: 04/25/2025 , Expires: 04/25/2026 Start: 04-25-2025 End: 04-25-2026 Protein, urine, 24 hour Protein, urine, 24 hour Lab Routine induced hypertension, antepartum (HHS-HCC) Expected: 04/25/2025 (Approximate), Expires: 04/25/2026 [facility] Comment on above: Expected: 04/25/2025 (Approximate), Expires: 04/25/2026 Start: 04-25-2025 End: 04-25-2026 Pt and ptt Pt and ptt Lab Routine induced hypertension, antepartum (HHS-HCC) Expected: 04/25/2025, Expires: 04/25/2026 [facility] Comment on above: Expected: 04/25/2025 , Expires: 04/25/2026 Start: 04-25-2025 End: 04-25-2026 Urate [Mass/volume] in Serum or Plasma Uric acid Lab Routine induced hypertension, antepartum (HHS-HCC) Expected: 04/25/2025 (Approximate), Expires: 04/25/2026 [facility] Comment on above: Expected: 04/25/2025 (Approximate), Expires: 04/25/2026 Start: 04-25-2025 End: 04-25-2026 Urea nitrogen [Mass/volume] in Serum or Plasma BUN Lab Routine induced hypertension, antepartum (HHS-HCC) Expected: 04/25/2025, Expires: 04/25/2026 [facility] Comment on above: Expected: 04/25/2025 , Expires: 04/25/2026 Start: 04-11-2025 End: 04-11-2025 Patient encounter procedure 04/11/2025 3:30 PM EDT Routine [facility] [address] [place] [address] Rossana Ramos PA [address] [place] [address] [facility] Start: 04-11-2025 End: 04-11-2026 [...] mellitus screening Expected: 04/11/2025 (Approximate), Expires: 04/11/2026 [facility] Comment on above: Expected: 04/11/2025 (Approximate), Expires: 04/11/2026 Start: 03-14-2025 End: 03-14-2025 Patient encounter procedure 03/14/2025 10:50 AM EDT Routine [facility] [address] [place] [phone] Jose Rodriguez, DO [address] [place] [address] [facility] Start: 02-20-2025 End: 02-20-2025 Patient encounter procedure [facility] Comment on above: Arrived Start: 02-20-2025 End: 04-22-2025 Alpha fetoprotein, maternal Alpha fetoprotein, maternal Lab Routine 18 weeks gestation of Expected: 02/20/2025 (Approximate), Expires: 04/22/2025 [facility] Comment on above: Expected: 02/20/2025 (Approximate), Expires: 04/22/2025 Start: 02-20-2025 End: 05-23-2025 US for US OB 14+ weeks anatomy scan Imaging Routine Screening, , for anatomic survey Expected: 02/20/2025, Expires: 05/23/2025 [facility] Comment on above: Expected: 02/20/2025 , Expires: 05/23/2025 Start: 01-14-2025 End: 01-14-2025 Patient encounter procedure [facility] Comment on above: Arrived Start: 12-14-2024 End: 12-14-2024 ambulatory 12/14/2024 9:00 AM EDT Initial [facility] [address] [place] [address] [facility] Start: 12-14-2024 End: 12-14-2024 Professional / ancillary services management 12/14/2024 8:30 AM EDT Ancillary Procedure [facility] [address] [place] [phone] [facility] Start: 08-20-2024 End: 08-20-2024 Patient encounter procedure 08/20/2024 10:20 AM EST Office Visit [facility] [address] [place] [phone] Rossana Ramos PA [address] [place], [place] [id number] [facility] Start: 08-06-2024 End: 08-06-2024 Patient encounter procedure 08/06/2024 9:10 AM EST Routine [facility] [address] [place] [phone] Jose Rodriguez DO [address] [place] [address] [facility] Start: 06-29-2024 End: 06-29-2025 [...] first trimester Expected: 06/29/2024 (Approximate), Expires: 06/29/2025 [facility] Comment on above: Expected: 06/29/2024 (Approximate), Expires: 06/29/2025 Start: 06-29-2024 End: 06-29-2025 US Pelvis transvaginal US OB transvaginal Imaging Routine Missed menses Expected: 06/29/2024 (Approximate), Expires: 06/29/2025 [facility] Comment on above: Expected: 06/29/2024 (Approximate), Expires: 06/29/2025 Start: 05-27-2024 Influenza vaccination Influenza Vacc ine (#1) [facility] Start: 05-01-2024 DTaP,Tdap and Td Vac cines (7 - Td or Tdap) DTaP,Tdap and Td Vaccines (7 - Td or Tdap) [facility] Start: 2020 DTaP,Tdap and Td Vac cines (1 - Tdap) DTaP,Tdap and Td Vaccines (1 - Tdap) [facility] Start: 2019 Adult BMI Screening Adult BMI Screen ing [facility] Start: 2013 Depression Screening Depression Scre ening [facility] Start: 2013 Tobacco Screening Tobacco Screening [facility] Start: 2001 Screening for Chlamy jd trachomatis Chlamydia Screening [facility] Bacteria identified in Urine by Culture Urine culture Microbiology Routine Missed menses Ordered: 06/29/2024 [facility] Comment on above: Ordered: 06/29/2024 Bacteria identified in Urine by Culture Urine culture Microbiology Routine Urinary frequency Ordered: 02/20/2025 [facility] Comment on above: Ordered: 02/20/2025 CBC W Auto Different ial panel - Blood CBC and differential Lab Routine Missed menses , unspecified gestational age Ordered: 06/29/2024 [facility] Comment on above: Ordered: 06/29/2024 CHLAMYDIA TRACHOMATI S (GENITO/STI) CHLAMYDIA TRACHOMATIS (GENITO/STI) Lab Routine STD exposure Ordered: 02/20/2025 [facility] Comment on above: Ordered: 02/20/2025 Cytology Cervical or vaginal smear or scraping study Pap Smear Pathology and Cytology Routine Well woman exam with routine gynecological exam Ordered: 02/20/2025 [facility] Comment on above: Ordered: 02/20/2025 Hemoglobin A1c/Hemoglobin.total in Blood Hemoglobin A1c Lab Routine Missed menses , unspecified gestational age Ordered: 06/29/2024 [facility] Comment on above: Ordered: 06/29/2024 Hepatitis B virus beltran rface Ag [Presence] in Serum or Plasma by Immunoassay Hepatitis B surface antigen Lab Routine Missed menses , unspecified gestational age Ordered: 06/29/2024 [facility] Comment on above: Ordered: 06/29/2024 Hepatitis C virus Ab [Presence] in Serum or Plasma by Immunoassay Hepatitis C antibody Lab Routine Missed menses , unspecified gestational age Ordered: 06/29/2024 [facility] Comment on above: Ordered: 06/29/2024 HIV-1/HIV-2 antigen/antibody combination immunoassay HIV-1 and HIV-2 antibodies Lab Routine Missed menses , unspecified gestational age Ordered: 06/29/2024 [facility] Comment on above: Ordered: 06/29/2024 Neisseria gonorrhoea e DNA [Presence] in Unspecified specimen by INESSA with probe detection Neisseria gonorrhea DNA probe, direct Lab Routine STD exposure Ordered: 02/20/2025 [facility] Comment on above: Ordered: 02/20/2025 Reagin Ab [Presence] in Serum by RPR RPR Lab Routine Missed menses , unspecified gestational age Ordered: 06/29/2024 [facility] Comment on above: Ordered: 06/29/2024 Rubella antibody, IgG Rubella an tibody, IgG Lab Routine Missed menses , unspecified gestational age Ordered: 06/29/2024 [facility] Comment on above: Ordered: 06/29/2024 SURESWAB(R) ADVANCED VAGINITIS PLUS, TMA SURESWAB(R) ADVANCED VAGINITIS PLUS, TMA Pathology and Cytology Routine STD exposure Ordered: 02/20/2025 [facility] Work Phone: Comment on above: Ordered: 02/20/2025 Immunizations Immunization Date Immunization Notes Care Provider Ryne abrams 08-28-2002 influenza virus vacc ine, unspecified formulation Noms Nurse [facility] Payers Date Payer Category Payer Medicaid HMO [id number] 2024 Blue [employer] Managed Care - PPO [id number] 2023 Medicaid [employer] [place] [id number] 2023-Present [address] [place] [address] [id number] 2023 Medicaid (Managed Care) [employer] [id number] 2021 Blue Cross Blue Shield 1.2.8 [id number] 2021 Unknown BCBS BCBS xxxxxx [id number] 2021-Present [phone] [address] [place] [address] [id number]. [id number] 2001 Unknown [id number] 2.16.840.1.305224.3.579.2. 593 2001 Unknown [id number] 2.16.840.1.448215.3.579.2. 593 2001 Unknown [id number] 2.16.840.1.749096.3.579.2. 593 2001 Unknown [id number] 2.16.840.1.821129.3.579.2. 593 2001 Unknown [id number] 2.16.840.1.779686.3.579.2. 593 2001 Unknown [id number] 2.16.840.1.432837.3.579.2. 593 2001 Unknown [id number] 2.16.840.1.737367.3.579.2. 593 2001 Unknown [id number] 2.16.840.1.066143.3.579.2. 593 2001 Unknown [id number] 2.16.840.1.428052.3.579.2. 593 2001 Unknown [id number] 2.16.840.1.503789.3.579.2. 593 2001 Unknown [id number] 2.16.840.1.179673.3.579.2. 593 2001 Unknown [id number] 2.16.840.1.388350.3.579.2. 593 2001 Unknown [id number] 2.16.840.1.241559.3.579.2. 593 2001 Unknown [id number] 2.16.840.1.619936.3.579.2. 593 2001 Unknown [id number] 2.16.840.1.311235.3.579.2. 593 2001 Unknown [id number] 2.16.840.1.310214.3.579.2. 593 2001 Unknown [id number] 2.16.840.1.857032.3.579.2. 593 2001 Unknown [id number] 2.16.840.1.394876.3.579.2. 593 2001 Unknown [id number] 2.16.840.1.982498.3.579.2. 593 2001 Unknown [id number] 2.16.840.1.146492.3.579.2. 593 2001 Unknown [id number] 2.16.840.1.760001.3.579.2. 593 2001 Unknown [id number] 2.16.840.1.082035.3.579.2. 125 2001 Unknown [id number] 2.16840.1.593318.3.579.2. 125 2001 Unknown [id number] 2.840.1.519926.3.579.2. 125 2001 Unknown [id number] 2.16840.1.486359.3.579.2. 125 2001 Unknown [id number] 2.16840.1.659334.3.579.2. 1258 2001 Unknown [id number] 2.16840.1.653620.3.579.2. 1258 2001 Unknown [id number] 2.16840.1.182908.3.579.2. 125 2001 Unknown [id number] 2.16.840.1.383759.3.579.2. 125 2001 Unknown [id number] 2.16840.1.975070.3.579.2. 1258 2001 Unknown [id number] 2.16.840.1.116857.3.579.2. 125 2001 Unknown [id number] 2.16840.1.237630.3.579.2. 1258 2001 Unknown [id number] 2.16840.1.933786.3.579.2. 1259 2001 Unknown [id number] 2.16.840.1.945867.3.579.2. 1259 2001 Unknown [id number] 2.16.840.1.937171.3.579.2. 1259 2001 Unknown [id number] 2.16.840.1.883671.3.579.2. 6 2001 Unknown [id number] 2.16.840.1.339668.3.579.2. 1286 2001 Unknown [id number] 2.16.840.1.976952.3.579.2. 1286 2001 Unknown [id number] 2.16.840.1.258517.3.579.2. 1286 1959 Self-pay 1959 Unknown [id number] 1959 Unknown [id number] Unknown [id number] 2.16.840.1.982667.3.579.2. 593 Unknown [id number] 2.16.840.1.439355.3.579.2. 531 Social History Date Type Detail Facility Start: 10-13-2023 End: 06-29-2024 Sex Assigned At [facility] [employer] Other Start: 2000 Sex Assigned At Female [facility] Start: 10-13-2023 End: 05-10-2025 Tobacco smoking status NHIS Never smoked tobacco [facility] Start: 06-29-2024 End: 05-28-2025 Alcoholic beverage intake Current drinker of alcohol (finding) [facility] Start: 10-13-2023 End: 06-29-2024 History of Social function [facility] Start: 05-24-2024 [facility] Start: 2001 Sex assigned at Not on file [facility] Tobacco smoking stat us DEIS Unknown if ever smoked [facility] Work Phone: Start: 04-29-2015 End: 08-11-2024 Sex Female (finding) [facility] Start: 05-10-2025 End: 05-31-2025 Alcoholic beverage intake Ex-drinker (finding) [facility] [facility] Unknown [employer] [facility] [employer] [facility] Medical Equipment Procedure Code Equipment Code Equipment Origin al Text Equipment Identifier Dates 1 strip by In Vi tro route Daily Use in the morning prior to breakfast, 1 hour after each meal for a total of 4times daily. [id number] Start: 05-08-2025 End: 06-07-2025 1 each by In Vit ro route Daily Use to check FSBS four times daily [id number] Start: 05-08-2025 End: 06-07-2025 Clinical Notes 12-26-2022 to 06-12-2025 TRUE Argueta - 06/12/2025 3:00 PM EDTTelephone Encounter - Xenia London, ALEC - 06/05/2025 11:08 AM EDTTelephone Encounter - Xenia London, ALEC - 06/05/2025 11:08 AM EDT Note Date & Type Note Facility 06-12-2025 History of Presen t illness Narrative Reason [...] Problems Diagnosis Date Noted induced hypertension, antepartum ([facility]-H[facility]) 05/28/2025 Gestational diabetes mellitus (GDM), antepartum ([facility]) 05/28/2025 Resolved Ambulatory Problems Diagnosis Date Noted No Resolved Ambulatory Problems Past Medical History: Diagnosis Date Anemia Gestational diabetes ([facility]-H[facility]) History of blood transfusion Lead poisoning Miscarriage ([facility]) Nonsmoker Post depression HISTORY PAST MEDICAL HISTORY SOCIAL HISTORY Past Medical History: Diagnosis Date Anemia Gestational diabetes ([facility]HS-HCC) History of blood transfusion Lead poisoning Miscarriage ([facility]) Nonsmoker Post depression /anxiety Social History Tobacco [...] Vitals: Estimated body mass index is 31.96 kg/m as calculated from the following: Height as of 01/06/23: 5' 3 . Weight as of this encounter: 180 lb 6.4 oz. BP: 144/90 Patient's last menstrual period was 10/15/2024 (exact date). ASSESSMENT & PLAN ICD-10-CM 1. Third trimester ([facility]) Z34.93 POCT urinalysis dipstick manually resulted 2. 34 weeks gestation of ([facility]) Z3A.34 POCT urinalysis dipstick manually resulted Return [...] of: TRUE Argueta documented in this encounter [facility] 06-05-2025 Miscellaneous Notes Received blood sugars from [...] again next week. documented in this encounter [facility] 06-05-2025 Telephone encounter Note Received blood sugars [...] send in more numbers again next week. [employer] Work Phone: 06-04-2025 History of Presen t [...] and the other consultants, we search on epic and all the available care everywhere epic I did review all the imaging studies of the patient available on EMR, ordered by the primary care physician and the other home care consultant HABITS: Patient activity no restrictions, diet [...] RECOMMENDATION: 1. Continue serial Doppler studies at [facility]FM office weekly 2. Continue testing form of [...] patient is in complete care of her professor of psychology. Patient does have multiple ultrasound scheduled with us Thank you for allowing me to participate in Vimal Funes . If there any questions please do not hesitate to contact us. Sincerely, MANAS MARTIN MD Video Visit via Real-time Synchronous Audiovisual Provider Location: [facility] AT [address] [address] Patient Location: Other [facility] office Patient Location Package Center Supervisor: None Video Visit Consent Statement: I discussed [...] that there are some limitations compared to [id number] evaluations. We elected to proceed. documented in this encounter [facility] 05-28-2025 Miscellaneous Notes Called regarding blood sugar logs from 05/20/25-05/26/25 but received voicemail. Vimal had 4 elevated fasting blood sugars and 2 elevated blood sugars after breakfast. Most recent fasting blood sugars have improved and she had three in target. We did talk last week about changing her evening snack. Will send a MyChart message. [facility] Telephone encounter Note Called regarding blood sugar logs from 05/20/25-05/26/25 but received voicemail. Vimal had 4 elevated fasting blood sugars and 2 elevated blood sugars after breakfast. Most recent fasting blood sugars have improved and she had three in target. We did talk last week about changing her evening snack. Will send a MyChart message. [employer] Work Phone: 05-28-2025 History of Presen t illness Narrative Reason for Appointment: Patient ID: Vimal Funes is a 25 y.o. female who presents for Routine Visit Patient presents today for Return OB appointment. MEDICATIONS Current Outpatient Medications Medication Instructions Alcohol Swabs (Alcohol Prep Pad) 70 % pads 1 Pad, Topical, Daily, Use four times daily to check FSBS. Blood Glucose Monitoring Suppl (Lumora Glucometer) w/Device kit 1 kit, Does not [...] ([facility]-H[facility]) 05/28/2025 Gestational diabetes mellitus (GDM), antepartum ([facility]-HCC) 05/28/2025 Resolved Ambulatory Problems Diagnosis Date Noted [...] nursing note reviewed. Exam conducted with a engineered wood designer present. Vitals: Estimated body mass index is 32.06 kg/m as calculated from the following: Height as of 01/06/23: 5' 3 . Weight as of this encounter: 181 lb. BP: 136/80 Patient's last menstrual period was 10/15/2024 (exact date). ASSESSMENT & PLAN ICD-10-CM 1. Third trimester ([facility]) Z34.93 POCT urinalysis dipstick manually resulted 2. 32 weeks gestation of ([facility]) Z3A.32 3. Gestational diabetes mellitus (GDM), antepartum, gestational diabetes method of control unspecified ([facility]) O24.419 4. induced hypertension, antepartum ([facility]) O13.9 Return OB: Patient presents today for [...] Jose Rodriguez DO documented in this encounter [facility] 05-22-2025 History of Presen t illness Narrative Reason for Appointment: Patient ID: Vimal Funes is a 25 y.o. female who presents for Routine Visit Patient presents today for Return OB appointment. MEDICATIONS Current Outpatient Medications Medication Instructions Alcohol Swabs (Alcohol Prep Pad) 70 % pads 1 Pad, Topical, Daily, Use four times daily to check FSBS. Blood Glucose Monitoring Suppl (D-Kismet Glucometer) w/Device kit 1 kit, Does not [...] nursing note reviewed. Exam conducted with a engineered wood designer present. Vitals: Estimated body mass index is 31.49 kg/m as calculated from the following: Height as of 01/06/23: 5' 3 . Weight as of this encounter: 177 lb 12 oz. BP: (!) 138/92 Patient's last menstrual period was 10/15/2024 (exact date). ASSESSMENT & PLAN ICD-10-CM 1. Third trimester ([facility]) Z34.93 POCT urinalysis dipstick manually resulted 2. 31 weeks gestation of ([facility]) Z3A.31 Return OB: Patient presents today for a routine obstetrics appointment. Patient is currently 31w2d . Patient states she is doing well but has complaints of being tired due to current . Patient has verbalizes frequent movement. labor precautions was discussed/given and patient was instructed to perform kick counts three times a day. Reviewed 24 hour urine protein. Pt calling in sugars to [facility]. Orders Placed This Encounter Procedures POCT urinalysis dipstick manually resulted Follow Up: Patient is to return to office in 2 week for routine OB appointment. Documented by Meghana Felder LPN on behalf of: Jose Rodriguez DO documented in this encounter [facility] 05-21-2025 Miscellaneous Notes Called regarding blood sugar [...] sugars next week. documented in this encounter [facility] [facility] Telephone encounter Note Called regarding blood [...] will send in blood sugars next week. [facility] Work Phone: 05-14-2025 History of Presen t illness Narrative Reason for Appointment: Patient ID: Vimal Funes is a 25 y.o. female who presents for Routine Visit Patient presents today for Return OB appointment. MEDICATIONS Current Outpatient Medications Medication Instructions Alcohol Swabs (Alcohol Prep Pad) 70 % pads 1 Pad, Topical, Daily, Use four times daily to check FSBS. Blood Glucose Monitoring Suppl (D-Kismet Glucometer) w/Device kit 1 kit, Does not [...] History of blood transfusion Lead poisoning Miscarriage ([facility]) Nonsmoker Post depression HISTORY PAST MEDICAL HISTORY SOCIAL HISTORY Past Medical History: Diagnosis Date Anemia Gestational diabetes ([facility]-HCC) History of blood transfusion Lead poisoning Miscarriage ([facility]) Nonsmoker Post depression /anxiety Social History Tobacco [...] nursing note reviewed. Exam conducted with a engineered wood designer present. Vitals: Estimated body mass index is 31.35 kg/m as calculated from the following: Height as of 01/06/23: 5' 3 . Weight as of this encounter: 177 lb. BP: 140/90 Patient's last menstrual period was 10/15/2024 (exact date). ASSESSMENT & PLAN ICD-10-CM 1. Third trimester ([facility]) Z34.93 POCT urinalysis dipstick manually resulted 2. 30 weeks gestation of ([facility]) Z3A.30 POCT urinalysis dipstick manually resulted 3. induced hypertension, antepartum ([facility]) O13.9 Creatinine Protein, urine, 24 hour Pt [...] Jose Rodriguez DO documented in this encounter [facility] 05-13-2025 Group counseling note Patient: Vimal [...] Face to face time was 110 minutes. [employer] Work Phone: 05-13-2025 Miscellaneous Notes Patient: Vimal [...] was 110 minutes. documented in this encounter [facility] 05-07-2025 Telephone encounter Note Called pt to let her know that she did not pass her 3 hour glucose test and that I would be sending in supplies and referring her to diabetic education. [facility] 05-07-2025 Miscellaneous Notes Called pt to let her know that she did not pass her 3 hour glucose test and that I would be sending in supplies and referring her to diabetic education. documented in this encounter [facility] 04-30-2025 History of Presen t illness [...] Medical History: Diagnosis Date Anemia Gestational diabetes ([facility]) History of blood transfusion Lead poisoning Miscarriage ([facility]) Nonsmoker Post depression HISTORY PAST MEDICAL HISTORY SOCIAL HISTORY Past Medical History: Diagnosis Date Anemia Gestational diabetes ([facility]) History of blood transfusion Lead poisoning Miscarriage ([facility]) Nonsmoker Post depression /anxiety Social [...] resulted 2. -induced hypertension in third trimester ([facility]) O13.3 US biophysical profile w non stress test US OB follow up transabdominal approach labetalol (Normodyne) 300 MG tablet 3. Gestational diabetes mellitus (GDM) in third trimester, gestational diabetes method of control unspecified ([facility]) O24.419 US biophysical profile w non stress [...] of: TRUE Argueta documented in this encounter [facility] 04-25-2025 History of Presen t illness [...] Medical History: Diagnosis Date Anemia Gestational diabetes ([facility]) History of blood transfusion Lead poisoning Miscarriage ([facility]) Nonsmoker Post depression HISTORY PAST MEDICAL HISTORY SOCIAL HISTORY Past Medical History: Diagnosis Date Anemia Gestational diabetes ([facility]) History of blood transfusion Lead poisoning Miscarriage ([facility]) Nonsmoker Post depression /anxiety Social [...] ASSESSMENT & PLAN ICD-10-CM 1. Second trimester ([facility]) Z34.92 2. 27 weeks gestation of ([facility]) Z3A.27 Patient presents for BP check. BP elevated today despite taking 100mg bid labetolol daily. We will increase to 200mg bid daily. Patient given labs and instructed to follow up with OB should she develop headache or vision changes Pt will follow up with DR Rodriguez next week Documented by TRUE Argueta on behalf of: TRUE Argueta documented in this encounter [facility] 04-11-2025 History of Presen t illness [...] ASSESSMENT & PLAN ICD-10-CM 1. Second trimester ([facility]) Z34.92 POCT urinalysis dipstick manually resulted 2. 25 weeks gestation of ([facility]) Z3A.25 3. Diabetes mellitus screening Z13.1 CBC [...] of: TRUE Argueta documented in this encounter [facility] 03-14-2025 History of Presen t illness [...] History of blood transfusion Lead poisoning Miscarriage ([facility]) Nonsmoker Post depression /anxiety Social History Tobacco [...] nursing note reviewed. Exam conducted with a engineered wood designer present. Vitals: Estimated body mass index is 29.23 kg/m as calculated from the following: Height as of 01/06/23: 5' 3 . Weight as of this encounter: 165 lb. BP: 112/76 Patient's last menstrual period was 10/15/2024 (exact date). ASSESSMENT & PLAN ICD-10-CM 1. Second trimester ([facility]) Z34.92 POCT urinalysis dipstick manually resulted 2. 21 weeks gestation of ([facility]) Z3A.21 Patient presents today for a routine obstetrics appointment. Patient is currently 21w3d with a Estimated Date of Delivery: 07/22/25. Patient has no complaints at this time and will return to clinic in 4 weeks. Documented by Diamond Borja LPN on behalf of: Jose Rodriguez DO documented in this encounter [facility] 02-20-2025 History of Presen t illness [...] nursing note reviewed. Exam conducted with a engineered wood designer present. Vitals: Estimated body mass index is [...] of: TRUE Argueta documented in this encounter [facility] 01-14-2025 History of Presen t illness [...] nursing note reviewed. Exam conducted with a engineered wood designer present. Vitals: Estimated body mass index is [...] or undercooked meat, and stay away from [facility]. Patient has been consulted regarding any [...] Jose Rodriguez DO documented in this encounter [facility] 08-20-2024 History of Presen t illness [...] having a D&C Hysteroscopy performed at [facility] with Dr. Rodriguez. Pathology results was reviewed with the patient in great detail and all restrictions have been lifted. Follow Up: Patient is to return to the office for annual exam unless needed otherwise. Documented by TRUE Argueta on behalf of: TRUE Argueta documented in this encounter [facility] 08-06-2024 History of Presen t illness [...] nursing note reviewed. Exam conducted with a engineered wood designer present. Vitals: Estimated body mass index is [...] vaginal bleeding. Patient to discuss date with Container Washer Machine prior to leaving. Patient is able to obtain work note for the week and if longer is needed she will reach out to office. 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 Patient has also been advised to [...] by: Whitney Peacock documented in this encounter [facility] 12-26-2022 Evaluation note Encounter Date Diagnosis [...] appointment to be seen soon as possible [employer] Other [employer] noteNo assessment information available [facility] Work Phone: [employer]wpvn note* Diagnosis Missed menses , unspecified gestational age Encounter for supervision of normal first in first trimester Nausea Nausea alone 7 weeks gestation of documented in this encounter [facility] note* Diagnosis Miscarriage Unspecified spontaneous without mention of complication documented in this encounter [facility] note* Diagnosis Postoperative examination Follow-up examination, following unspecified surgery documented in this encounter [facility] note* Diagnosis 13 weeks gestation of Second trimester state, incidental documented in this encounter [facility] note* Diagnosis Screening, , for anatomic survey Encounter for anatomic survey Well woman exam with routine gynecological exam Routine gynecological examination STD exposure Second trimester state, incidental 18 weeks gestation of Urinary frequency documented in this encounter [facility] note* Diagnosis Second trimester ([facility]) state, incidental 21 weeks gestation of ([facility]) documented in this encounter [facility] note* Diagnosis Second trimester ([facility]) state, incidental [...] unspecified [facility] Diagnosis Third trimester ([facility]) state, [...] unspecified [facility] Diagnosis Third trimester ([facility]) state, incidental 34 weeks gestation of ([facility]) documented in this encounter [facility]ructionsNot on filedocumented in this encounterProMedica Health SystemInstructionsNot on filedocumented in this encounterProMedidc Health SystemInstructionsNot on filedocumented in this encounterProMedidc Health SystemInstructionsNot on filedocumented in this encounterProBapt[facility] Summary Purpose Family History No Family History Records FoundNo Family History Records FoundNo Family History Records FoundNo Family History Records FoundNo Family History Records FoundNo Family History Records Found Advance Directives Advance Directive Response Recorded Date/ Time Advance Directives No December 27 6:21am Additional Source Comments INFORMATION SOURCE (unrecogn ized section and content) DATE CREATED AUTHOR 09/24/2021 [facility] DATE CREATED AUTHOR AUTHOR'S ORGANIZ ATION 12/07/2022 [facility] DATE CREATED AUTHOR AUTHOR'S ORGANIZ ATION 08/15/2024 [facility] DATE CREATED AUTHOR AUTHOR'S ORGANIZ ATION 05/29/2025 [facility] EPIC DATE CREATED AUTHOR AUTHOR'S ORGANIZ ATION 06/06/2025 [facility] DATE CREATED AUTHOR AUTHOR'S ORGANIZ ATION 06/12/2025 [facility] REASON FOR VISIT (unrecogniz ed section [...] of control unspecified Jose Rodriguez R, DO [address] [place] [address] [place] [address] Phone: tel: fax: Maternal- Medicine at [facility] [address] [place] [address] Phone: tel: fax: Referral ID Status Reason Start Date Expiration Date Visits Requested Visits Authorized [id number] Pending Review Specialty Services Required 05/09/2025 05/09/2026 1 1 Care Teams (unrecognized sec tion and content) Team Status: Inactive Member Role Status Dates SORIN DonC Attending Provider Active Product Management Consultant Relationship Specialty Start Date End Date Vaishali Zapata MD [address] [place] [address] PCP - General Family Medicine 02/04/23 Product Management Consultant Relationship Specialty Start Date End Date Vaishali Zapata MD [address] [place] [address] PCP - General Family Medicine 02/04/23 Team Status: Active Member Role Status Dates PHYSICIAN NO FAMILY Primary Care Provider Active Team Status: Inactive Member Role Status Dates PHYSICIAN NO FAMILY Primary Care Provider Active Start: August 10, 2024 End: August 10, 2024 Jose Rodriguez DO Attending Provider Active Start : August 10, 2024 End: August 10, 2024 Product Management Consultant Relationship Specialty Start Date End Date Unallocated, Arjun Vo MD [address] [place] [address] [place] [address] PCP - General Family Medicine 08/03/24 Product Management Consultant Relationship Specialty Start Date End Date Unallocated, Arjun Vo MD [address] [place] [address] [place] [address] PCP - General Family Medicine 08/03/24 Product Management Consultant Relationship Specialty Start Date End Date Unallocated, Arjun Vo MD [facility] [place] [address] PCP - General Family Medicine 08/03/24 Product Management Consultant Relationship Specialty Start Date End Date Unallocated, Arjun Vo MD [facility] [address] [place] [address] PCP - General Family Medicine 08/03/24 Product Management Consultant Relationship Specialty Start Date End Date Unallocated, Arjun Vo MD [facility] [address] [place] [address] PCP - General Family Medicine 08/03/24 Product Management Consultant Relationship Specialty Start Date End Date Unallocated, Arjun Vo MD [address] [place] [address] PCP - General Family Medicine 08/03/24 Product Management Consultant Relationship Specialty Start Date End Date Unallocated, Arjun Vo MD [facility] [place] [address] PCP - General Family Medicine 08/03/24 Product Management Consultant Relationship Specialty Start Date End Date Unallocated, Arjun Vo MD [facility] [place] [address] PCP - General Family Medicine 08/03/24 Product Management Consultant Relationship Specialty Start Date End Date Unallocated, Arjun Vo MD [facility] [place] [address] PCP - General Family Medicine 08/03/24 Product Management Consultant Relationship Specialty Start Date End Date Unallocated, Arjun Vo MD [facility] [place] [address] PCP - General Family Medicine 08/03/24 Product Management Consultant Relationship Specialty Start Date End Date Unallocated, Arjun Vo MD [facility] [place] [address] PCP - General Family Medicine 08/03/24 Product Management Consultant Relationship Specialty Start Date End Date Unallocated, Arjun Vo MD [facility] [place] [address] PCP - General Family Medicine 08/03/24 Product Management Consultant Relationship Specialty Start Date End Date Unallocated, Arjun Vo MD [facility] [address] [place] [address] PCP - General Family Medicine 08/03/24 Product Management Consultant Relationship Specialty Start Date End Date Unallocated, Arjun Vo MD [facility] [place] [address] PCP - General Family Medicine 08/03/24 Product Management Consultant Relationship Specialty Start Date End Date Unallocated, Arjun Vo MD [address] [place] [address] PCP - General Family Medicine 08/03/24 Product Management Consultant Relationship Specialty Start Date End Date Unallocated, Arjun Vo MD [address] [place] [address] PCP - General Family Medicine 08/03/24 Product Management Consultant Relationship Specialty Start Date End Date Unallocated, Arjun Vo MD [address] [place] [address] PCP - General Family Medicine 08/03/24 Goals [...] BE BASED ON THE PRIMARY CLINICAL RECORDS. [place] [employer] [facility]. provides no warranty or guarantee of the accuracy or completeness of information in this document.
== END 2025-06-12 16:38 | disposition home or self-care (01) ==
LOC: FBCO 16:03 → FBC 16:05
PROVIDERS: PCP Nurse Practitioner Family; Visit Provider Obstetrics & Gynecology
DX: O24.419 Gestational diabetes mellitus in pregnancy, unspecified control (principal); O16.9 Unspecified maternal hypertension, unspecified trimester; O09.299 Supervision of pregnancy with other poor reproductive or obstetric history, unspecified trimester; Z3A.00 Weeks of gestation of pregnancy not specified
CPT/HCPCS: 59025

== ENCOUNTER 2025-06-15 10:57 | Outpatient (OUT) | payer BC, OTHER, SELFPAY ==
--- OUTSIDE RECORDS SUMMARY | 2025-06-04 14:00 | XMS_ITS | Encounter Summary ---
Author Organization [facility] tem Address [id number] [address] [place] [address] Care Team Providers Care Recording Engineer Name Role Phone Unavailable Primary Care Provider Unavailabl e Encounter Details Date Type Department Care Team (Late st Contact Info) Description 06/04/2025 2:00 PM EDT Telemedicine Maternal- Medicine at [facility] [address] [place] [phone] Manas Martin MD [address] [facility], [address] [place] [address] Poor growth affecting management of mother in [...] and the other consultants, we search on [facility] and all the available care everywhere epic I did review all the imaging studies of the patient available on EMR, ordered by the primary care physician and the other home energy consultant supervisor HABITS: Patient activity no restrictions, diet no [...] RECOMMENDATION: 1. Continue serial Doppler studies at [facility] office weekly 2. 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 Patient does have multiple ultrasound scheduled with us Thank you for allowing me to participate in Amber Funes . If there any questions please do nothesitate to contact us. Sincerely, MANAS MARTIN MD Video Visit via Real-time Synchronous Audiovisual Provider Location: [facility] MATERNAL- MEDICINE AT [address] [address] Patient Location: Other [facility] office Patient Location Floor Technician: None Video Visit Consent Statement: I discussed [...] that there are some limitations compared to [id number] evaluations. We elected to proceed. documented in this encounter Plan of Treatment Upcoming Encounters Date Type Department Care Team (Late st Contact Info) Description 06/18/2025 3:30 PM EDT Appointment [facility] US Imaging [address] [place] [address] 06/24/2025 2:15 PM EDT Appointment Maternal Medicine [place] [address] [place] [address] documented as of this encounter Visit Diagnoses Diagnosis Poor growth affecting management of mother in third trimester, single or unspecified fetus- Primary documented in this encounter
--- OUTSIDE RECORDS SUMMARY | 2025-06-11 07:48 | XMS_ITS | Encounter Summary ---
Author Organization [facility] [employer] [facility] tem Address [facility]-[id number] [address] [place] [address] Care Team Providers Care Associate Director Of Nursing Name Role Phone Unavailable Primary Care Provider Unavailabl e Reason for Referral * Diagnostic Imaging (Routine) - Pending Review Specialty Diagnoses / Procedures Referred By Ashly thomson Referred To Contact Maternal and Medicine Diagnoses Poor growth affecting management of mother in third trimester, single or unspecified fetus Gestational diabetes mellitus (GDM) in third trimester, gestational diabetes method of control unspecified Procedures US [facility] with or without consult Chris Martin MD [address], [address] [place] [address] Phone: tel: fax: Maternal- Medicine at [place] [address] [place] [address] Phone: tel: fax: Referral ID Status Reason Start Date Expiration Date V isits Requested Visits Authorized [id number] Pending Review 06/04/2025 06/04/2026 1 1 Reason [...] consult Chris Martin MD [address], [address] [place] [address] Phone: tel: fax: Maternal- Medicine at [address] [place] [address] Phone: tel: fax: Referral ID Status Reason Start Date Expiration Date V isits Requested Visits Authorized [id number] Pending Review 06/04/2025 06/04/2026 1 1 Encounter Details Date Type Department Care Team (Latest Contact Info) Description 06/11/2025 7:48 AM EDT - 06/11/2025 11:59 PM EDT Hospital Encounter - [facility] US Imaging [address] [place] [address] Poor growth affecting management of [...] Info) Description 06/18/2025 3:30 PM EDT Appointment - [facility] US Imaging [address] [place] [address] 06/24/2025 2:15 PM EDT Appointment Maternal Medicine [place] [address] [place] [address] documented as of this encounter [...] 8:39 AM EDT) Anatomical Region Laterality Modality OB-APPLICATION DEVELOPMENT PROJECT MANAGER Ultrasound 06/11/2025 8:10 AM EDT Narrative 06/11/2025 10:28 AM EDT NAME: JERICA CELIS : 2000 SEX: F Accession Number: [id number] ORDERING PHYSICIAN: CHRIS MARTIN REFERRING PHYSICIAN: MACKENZIE SNADERSON Coding ----- --------- Procedures 20853: Limited OB / DANYA, 1 or More Fetuses 01719: Doppler velocimetry, ; umbilical artery Indication ----- [...] today's exam. Recommendations ----- --------- Please see [facility] recommendations from prior clinical and/or ultrasound report documentation. The patient is scheduled for weekly Dopplers. The patient is scheduled in two weeks for growth ultrasound and Dopplers. Continue testing as previously recommended. Subsequent follow up or other follow up as clinically determined by primary OB provider unless otherwise specified by [facility]. Results forwarded to ordering provider so they can follow up with the patient as necessary. Procedure Note Maria Luisa Patel MD - 06/11/2025 NAME: JERICA CELIS : 2000 SEX: F Accession Number: [id number] ORDERING PHYSICIAN: CHRIS MARTIN REFERRING PHYSICIAN: MACKENZIE SANDERSON Coding ----- --------- Procedures 25791: Limited OB / DANYA, 1 or More Fetuses 77425: Doppler velocimetry, ; umbilical artery Indication ----- [...] today's exam. Recommendations ----- --------- Please see [facility] recommendations from prior clinical and/or ultrasoundreport documentation. [...] with thepatient as necessary. Chris Martin MD [facility] ORDERABLES Final Resul t documented in this encounter Visit Diagnoses Diagnosis Poor growth affecting management of mother in third trimester, single or unspecified fetus Gestational diabetes mellitus (GDM) in third trimester, gestational diabetes method of control unspecified documented in this encounter
--- OUTSIDE RECORDS SUMMARY | 2025-06-12 15:00 | XMS_ITS | Encounter Summary ---
Author Organization [facility] Address [address] [place] [address] Care Team Providers Care Aged Or Disabled Care Worker Name Role Phone Unallocated, Noms Provider Primary Care Provi krissy Reason for Visit * Reason Comments Routine Visit Encounter Details Date Type Department Care Team (Late st Contact Info) Description 06/12/2025 3:00 PM EDT Routine ARJUN [place] OBCHICHO [address] [facility] [address] Rossana Ramos PA [address] [place], [facility]11 Third trimester ([facility]); 34 weeks gestation of ([facility]) Social History Tobacco Use [...] Sign Reading Time Taken Comments Blood Pressure 144/90 06/12/2025 3:22 PM EDT Pulse - - Temperature - - Respiratory Rate - - Oxygen Saturation - - Inhaled Oxygen Concentration - - Weight 81.8 kg (180 lb 6.4 oz) 06/12/2025 3:22 P M EDT Height - - Body Mass Index 31.96 01/06/2023 12:00 PM EDT documented in this encounter Progress Notes * TRUE Argueta - 06/12/2025 3:00 PM EDT Reason for Appointment: Patient ID: Amber Funes is a 25 y.o. female who presents for Routine Visit Patient presents today for Return OB appointment. MEDICATIONS Current Outpatient Medications Medication Instructions Alcohol Swabs (Alcohol Prep Pad) 70 % pads 1 Pad, Topical, Daily, Use four times daily to check FSBS. Blood Glucose Monitoring Suppl (menschmaschine publishing Glucometer) w/Device kit 1 kit, Does not [...] Problems Diagnosis Date Noted induced hypertension, antepartum ([facility]) 05/28/2025 Gestational diabetes mellitus (GDM), antepartum ([facility]) 05/28/2025 Resolved Ambulatory Problems Diagnosis Date Noted No Resolved Ambulatory Problems Past Medical History: Diagnosis Date Anemia Gestational diabetes ([facility]) History of blood transfusion Lead poisoning Miscarriage ([facility]) Nonsmoker Post depression HISTORY PAST MEDICAL HISTORY SOCIAL HISTORY Past Medical History: Diagnosis Date Anemia Gestational diabetes ([facility]) History of blood transfusion Lead poisoning Miscarriage ([facility]) Nonsmoker Post depression /anxiety Social History Tobacco [...] reviewed. Vitals: Estimated body mass index is 31.96 kg/m?? as calculated from the following: Height as of 01/06/23: 5' 3 . Weight as of this encounter: 180 lb 6.4 oz. BP: 144/90 Patient's last menstrual period was 10/15/2024 (exact date). ASSESSMENT & PLAN ICD-10-CM 1. Third trimester ([facility]) Z34.93 POCT urinalysis dipstick manually resulted 2. 34 weeks gestation of ([facility]) Z3A.34 POCT urinalysis dipstick manually resulted Return OB: Patient presents today for a routine obstetrics appointment. Patient is currently 34w2d . Patient states she is doing well but has complaints of being tired due to current . Patient has verbalizes frequent movement. labor precautions was discussed/given and patient was instructed to perform kick counts three times a day. Orders Placed This Encounter Procedures POCT urinalysis dipstick manually resulted Follow Up: Patient is to return to office in 1 week for routine OB appointment. Documented by TRUE Argueta on behalf of: TRUE Argueta documented in this encounter Plan of Treatment Upcoming Encounters Date Type Department Care Team (Late st Contact Info) Description 06/19/2025 2:30 PM EDT Routine [facility] [address] [facility] [address] Jose Rodriguez DO [address] [place] [address] documented as of this encounter Procedures Procedure Name Priority Date/Time Associated Diagnosis Comments POCT URINALYSIS DIPSTICK Routine 06/12/2025 3:32 PM EDT Third trimester ([facility]) 34 weeks gestation of ([facility]) documented in this encounter Results * (ABNORMAL) POCT urinalysis dipstick manually resulted (06/12/2025 3:32 PM EDT) Color, UA Yellow Clarity, UA Clear Glucose, UA Positive Negative - 2000(110) ++++ mg/dL Bilirubin, UA Negative Negative - 4(70) +++ mg/dL Ketones, UA Negative Negative - 160(16) ++++ mg/dL Spec Grav, UA 1.015 1 - 1.03 Blood, UA Negative Negative - 50 Jason/mcL pH, UA 6.5 5 - 9 Protein, UA Negative Negative - 2000(20) ++++ mg/dL Urobilinogen, UA 1.0 0.2 - 12 mg/dL Leukocytes, UA Negative Negative - 500+++ Carlos/mcL Nitrite, UA Negative Negative - Positive Urine 06/12/2025 3:32 PM EDT Jose Rodriguez DO POINT OF CARE TEST ENTER/EDIT OR DERABLES Final Result documented in this encounter Visit Diagnoses Diagnosis Third trimester ([facility]) state, incidental 34 weeks gestation of ([facility]) documented in this encounter Care Teams Aged Or Disabled Care Worker Relationship Specialty Start Date End Date Unallocated, Noms Gilda, [place] [address] PCP - General Family Medicine 08/03/24 documented as of this encounter
--- NOTE | 2025-06-15 11:00 | US_ITS ---
[address] [address] Patient Name: VIMAL PIZANO MRN: [id number] date: 2000 Sex: F Assigned Patient Location: US Current Patient Location: US Accession/Order Number: [id number] Exam Date: 06/15/2025 11:07 Report Date: 06/15/2025 12:51 At the request of: COLLIN LEACH Procedure: US OB BPP w non-stress Biophysical profile. Reason for exam: Gestational diabetes COMPARISON: 06/08/2025 TECHNIQUE: Transabdominal imaging of the gravid uterus was obtained. FINDINGS: The power plant engineer reports a BPP of 8 out of 8. DANYA is normal at 11.0 cm. heart rate 136 bpm. US/US OB BPP w non-stress IMPRESSION: BPP 8 out of 8. Impression dictated by: Amadou Carias M.D. 06/15/2025 12:51 PM Dictation Location: [facility] Electronically authenticated by: [id number] Y Date: 06/15/2025 12:51
--- OUTSIDE RECORDS SUMMARY | 2025-06-15 11:00 | XMS_ITS | CCD ---
Author Organization [facility] Care Team Providers Care News Producer Name Role Phone MICHAEL ., DR MANN [...] Unavailable MISC, DR DOMINIQUE Primary Care Unavailable HAMPSHIRE, DR COCO Danielle Consulting Unavailable MICHAEL ., DR MANN Consulting Unavailable MICHAEL ., DR MANN Admitting Unavailable MICHAEL ., DR MANN Attending Unavailable MISC, DR DOMINIQUE Primary Care Unavailable MICHAEL ., DR MANN Consulting Unavailable MICHAEL ., DR MANN Admitting Unavailable MICHAEL ., DR MANN Attending Unavailable MISC, DR DOMINIQUE Primary Care Unavailable HAMPSHIRE, DR COCO Danielle Consulting Unavailable MICHAEL ., [...] Primary Care Provider Unavailabl e MICHAEL, JOSE R Attending Unavailable MICHAEL, JOSE R Referring Unavailable XENIA LONDON Attending Unavailable MICHAEL, JOSE R Referring Unavailable MANAS MARTIN Attending Unavailable MICHAEL, JOSE R Referring Unavailable MICHAEL, JOSE R Referring Unavailable MICHAEL, JOSE Attending Unavailable RACHEL, ROSSANA Attending Unavailable MICHAEL, JOSE Attending Unavailable RACHEL, ROSSANA Attending Unavailable RACHEL, ROSSANA Attending Unavailable RACHEL, ROSSANA Attending Unavailable MICHAEL, JOSE Attending Unavailable MICHAEL, JOSE Attending Unavailable MICHAEL, JOSE Attending Unavailable RACHEL, [...] Onset: 05-01-2022 Episodic Unclassified (1 source) [facility] SPCF DIS/COND COMPL ; Translations: [OT [...] Negative Negative - 4(70) +++ mg/dL [facility] Blood, UA Negative Negative - 50 Jason/mcL [facility] Clarity, UA Clear [facility] re Color, UA Yellow [facility] Healthcar e Glucose, UA Positive Negative - 1999(110) ++++ mg/dL [facility] Interpretation and review of laboratory results Abnormal [facility] Ketones, UA Negative Negative - 160(16) ++++ mg/dL [facility] Leukocytes, UA Negative Negative - 500+++ Carlos/mcL [facility] Nitrite, UA Negative Negative - Positive [facility] pH, UA 6.5 5 - 9 [facility] Protein, UA Negative Negative - 1999(20) ++++ mg/dL [facility] Spec Grav, UA 1.015 1 - 1.03 [facility] Urobilinogen, UA 1.0 0.2 - 12 mg/dL [facility] US OB BPP W NON-STRESS on 06-08-2025 [place] [address] Ultrasound Report Signed Patient: VIMAL FUNES MR#: [id number] : 2000 Acct:[id number] Age/Sex: 25 / F ADM Date: 06/08/25 Loc: US Attending Dr: Rossana Ramos Ordering Physician: Rossana Ramos Date of Service: 06/08/25 Procedure(s): US OB BPP w non-stress Accession Number(s): [id number] cc: JENNIFER Watkins [address] [address] Patient Name: VIMAL FUNES MRN: [facility]:[id number] date: 2000 Sex: F Assigned Patient Location: [facility] Current Patient Location: Accession/Order Number: [id number] Exam Date: 06/08/2025 11:01 Report Date: 06/08/2025 [...] Knapp M.D. 06/08/2025 12:10 PM Dictation Location: [place] [address] Electronically authenticated by: [id number] Y Date: 06/08/2025 12:10 Dictated By: Shivam Knapp D.O. Signed By: 06/08/25 121 DD/ 121 TD/TT: Nursing Professor: [facility] Radiology, Radiologist, MD - 06/08/2025 [place] [address] Ultrasound Report Signed Patient: VIMAL FUNES MR#: [id number] : 2000 Acct:[id number] Age/Sex: 25 / F ADM Date: 06/08/25 Loc: US Attending Dr: Rossana Ramos Ordering Physician: Rossana Ramos Date of Service: 06/08/25 Procedure(s): US OB BPP w non-stress Accession Number(s): [id number] cc: JENNIFER Watkins [address] [address] Patient Name: VIMAL FUNES MRN: [facility]:[id number] date: 2000 Sex: F Assigned Patient Location: [facility] Current Patient Location: Accession/Order Number: [id number] Exam Date: 06/08/2025 11:01 Report Date: 06/08/2025 [...] Knapp M.D. 06/08/2025 12:10 PM Dictation Location: [place] [address] Electronically authenticated by: [id number] Y Date: 06/08/2025 12:10 Dictated By: Shivam Knapp D.O. Signed By: 06/08/25 1213 DD/ 1210 TD/TT: Nursing Professor: [facility] Rad[facility] Study observation (narrative) [facility] Bfly US OB BPP W NON-STRESS Ordered By: Radiologist Radiology on 06-08-2025 [facility]ITAL[facility]-dial LLCcar e Work Phone: US OB BPP W NON-STRESS on 06-01-2025 [place] [address] Ultrasound Report Signed Patient: VIMAL FUNES MR#: [id number] : 2000 Acct:[id number] Age/Sex: 25 / F ADM Date: 06/01/25 Loc: US Attending Dr: Rsosana Ramos Ordering Physician: Rossana Ramos Date of Service: 06/01/25 Procedure(s): US OB BPP w non-stress Accession Number(s): [id number] cc: Rossana Ramos; JENNIFER SEE [place] [id number] Patient Name: VIMAL FUNES MRN: [id number]:[id number] date: 2000 Sex: F Assigned Patient Location: US Current Patient Location: Accession/Order Number: [id number] Exam Date: 06/01/2025 10:59 Report Date: 06/01/2025 12:03 At the request of: ROSSANA RAMOS Procedure: US OB BPP w non-stress Biophysical profile. Reason for exam: Gestational diabetes COMPARISON: 05/25/2025 TECHNIQUE: Transabdominal imaging of the gravid uterus was obtained. FINDINGS: The truss designer reports a BPP of 8 out of 8. DANYA is normal at 11.0 cm. Cardiac activity was visualized by the truss designer per tech note. No heart rate was documented. US/US OB BPP w non-stress IMPRESSION: BPP 8 out of 8. Impression dictated by: Bulmaro Arias Jr., D.O. 06/01/2025 12:03 PM Dictation Location: [place] [address] Electronically authenticated by: [id number] Y Date: 06/01/2025 12:03 Dictated By: Bulmaro Arias M.D. Signed By: 06/01/25 1206 DD/ 1203 TD/TT: Nursing Professor: [facility] Radiology, Radiologist, MD - 06/01/2025 The [place] [id number] Ultrasound Report Signed Patient: VIMAL FUNES MR#: [id number] : 2000 Acct:[id number] Age/Sex: 25 / F ADM Date: 06/01/25 Loc: US Attending Dr: Rossana Ramos Ordering Physician: Rossana Ramos Date of Service: 06/01/25 Procedure(s): US OB BPP w non-stress Accession Number(s): [id number] cc: Rossana Ramos; JENNIFER SEE The [address] [address] Patient Name: VIMAL FUNES MRN: [facility]:[id number] date: 2000 Sex: F Assigned Patient Location: US Current Patient Location: Accession/Order Number: [id number] Exam Date: 06/01/2025 10:59 Report Date: 06/01/2025 12:03 At the request of: ROSSANA RAMOS Procedure: US OB BPP w non-stress Biophysical profile. Reason for exam: Gestational diabetes COMPARISON: 05/25/2025 TECHNIQUE: Transabdominal imaging of the gravid uterus was obtained. FINDINGS: The truss designer reports a BPP of 8 out of 8. DANYA is normal at 11.0 cm. Cardiac activity was visualized by the truss designer per tech note. No heart rate was documented. US/US OB BPP w non-stress IMPRESSION: BPP 8 out of 8. Impression dictated by: Bulmaro Arias Jr., D.O. 06/01/2025 12:03 PM Dictation Location: [employer] Electronically authenticated by: [id number] Y Date: 06/01/2025 12:03 Dictated By: Bulmaro Arias M.D. Signed By: 06/01/25 1206 DD/ 1203 TD/TT: Nursing Professor: [facility] Radiology Study observation (narrative) [facility] US OB BPP W NON-STRESS Ordered By: Radiologist Radiology on 06-01-2025 [facility] LLCcar e Work Phone: Urinalysis macro (dipstick) panel (U)on 05-28-2025 Bilirubin, UA Negative Negative - 4(70) +++ mg/dL [facility] Blood, UA Negative Negative - 50 Jason/mcL [facility] Clarity, UA Clear [facility] re Color, UA Yellow [facility] Vascular Closure e Glucose, UA Negative Negative - 1999(110) ++++ mg/dL [facility] Interpretation and review of laboratory results Normal [facility] Ketones, UA Negative Negative - 160(16) ++++ mg/dL [facility] Leukocytes, UA Negative Negative - 500+++ Carlos/mcL [facility] Nitrite, UA Negative Negative - Positive [facility] pH, UA 6.5 5 - 9 [facility] Vascular Closure e Protein, UA Negative Negative - 1999(20) ++++ mg/dL [facility] Spec Grav, UA 1.005 1 - 1.03 [facility] Urobilinogen, UA 1.0 0.2 - 12 mg/dL [facility] US OB BPP W NON-STRESS on 05-25-[address] [address] Ultrasound Report Signed Patient: VIMAL FUNES MR#: [id number] : 2000 Acct:[id number] Age/Sex: 25 / F ADM Date: 05/25/25 Loc: US Attending Dr: Rossana Ramos Ordering Physician: oRssana Ramos Date of Service: 05/25/25 Procedure(s): US OB BPP w non-stress Accession Number(s): [id number] cc: Rossana Ramos; JENNIFER SEE [address] [address] Patient Name: VIMAL FUNES MRN: [facility]:[id number] date: 2000 Sex: F Assigned Patient Location: [facility] Current Patient Location: Accession/Order Number: [id number] Exam Date: 05/25/2025 08:21 Report Date: 05/25/2025 [...] Acharya M.D. 05/25/2025 11:13 AM Dictation Location: [place] [address] Electronically authenticated by: [id number] Y Date: 05/25/2025 11:13 Dictated By: Heriberto Acharya M.D. Signed By: 05/25/25 1116 DD/ 1113 TD/TT: Nursing Professor: [facility] Radiology, Radiologist, MD - 05/25/[address] [address] Ultrasound Report Signed Patient: VIMAL FUNES MR#: [id number] : 2000 Acct:[id number] Age/Sex: 25 / F ADM Date: 05/25/25 Loc: US Attending Dr: Rossana Ramos Ordering Physician: Rossana Ramos Date of Service: 05/25/25 Procedure(s): US OB BPP w non-stress Accession Number(s): [id number] cc: Rossana Ramos; JENNIFER SEE [address] [address] Patient Name: VIMAL FUNES MRN: [id number] date: 2000 Sex: F Assigned Patient Location: [facility] Current Patient Location: Accession/Order Number: [id number] Exam Date: 05/25/2025 08:21 Report Date: 05/25/2025 [...] Acharya M.D. 05/25/2025 11:13 AM Dictation Location: [facility] [employer] Electronically authenticated by: [id number] Y Date: 05/25/2025 11:13 Dictated By: Heriberto Acharya M.D. Signed By: 05/25/25 1116 DD/ 1113 TD/TT: Nursing Professor: [facility] Radiology Study observation (narrative) [facility] US OB BPP W NON-STRESS Ordered By: Radiologist Radiology on 05-25-2025 [facility] Stat [facility]he [facility] e Work Phone: Urinalysis macro (dipstick) panel (U)on 05-22-2025 Bilirubin, UA Negative Negative - 4(70) +++ mg/dL [facility] Blood, UA Negative Negative - 50 Jason/mcL [facility] Clarity, UA Clear [facility] re Color, UA Yellow [facility] e Glucose, UA Negative Negative - 1999(110) ++++ mg/dL [facility] Interpretation and review of laboratory results Normal [facility] Ketones, UA Negative Negative - 160(16) ++++ mg/dL [facility] Leukocytes, UA Negative Negative - 500+++ Carlos/mcL [facility] Nitrite, UA Negative Negative - Positive [facility] pH, UA 6 5 - 9 [facility] Protein, UA Negative Negative - 1999(20) ++++ mg/dL [facility] Spec Grav, UA 1.01 1 - 1.03 [facility] Urobilinogen, UA 0.2 0.2 - 12 mg/dL [facility] e TBH TOTAL PROTEIN 24 HOUR UR INEon 05-20-2025 Interpretation and review of laboratory results Abnormal [facility] Protein (U) [Mass/Vol] 6.7 mg/dL NINF - 11.9 mg/dL [facility] TBH TOTAL PROTEIN 24 HOUR URINE 194.3 High [facility] TOTAL VOLUME 24 HOUR URINE 2900 mL/24hr [facility] CLIN[facility]NC [facility]alt[facility] e ALL CBC WITH AUTO DIFFon BASOPHILS ABSOLUTE AUTO 0 [facility] Basophils/100 WBC (Bld) 0.1 % Low 0.2 - 2.0 % [facility] Eosinophils/100 WBC (Bld) 1.7 % 0.9 - 7.0 % [facility] Erythrocyte distribution width (RBC) [Ratio] 12.7 % 11.0 - 15.0 % [facility] Hematocrit (Bld) [Volume fraction] 38.1 % 36.0 - 48.0 % [facility] Hemoglobin (Bld) [Mass/Vol] 13.3 g/dL 12.0 - 16.0 g/dL [facility] IMMATURE GRANULOCYTES ABS AUTO 0.06 High [...] US OB BPP W NON-STRESS on 05-18-[address] [address] Ultrasound Report Signed Patient: VIMAL FUNES MR#: [id number] : 2000 Acct:[id number] Age/Sex: 25 / F ADM Date: 05/18/25 Loc: US Attending Dr: Rossana Ramos Ordering Physician: Rossana Ramos Date of Service: 05/18/25 Procedure(s): US OB BPP w non-stress Accession Number(s): [id number] cc: Rossana Ramos; JENNIFER SEE [address] [address] Patient Name: VIMAL FUNES MRN: [id number] date: 2000 Sex: F Assigned Patient Location: [facility] Current Patient Location: Accession/Order Number: [id number] Exam Date: 05/18/2025 11:16 Report Date: 05/18/2025 [...] Acharya M.D. 05/18/2025 5:08 PM Dictation Location: [place] [address] Electronically authenticated by: [id number] Y Date: 05/18/2025 17:08 Dictated By: Heriberto Acharya M.D. Signed By: 05/18/252016 DD/ 07 TD/TT: Nursing Professor: [facility] Radiology, Radiologist, - 05/18/2025 [place] [address] Ultrasound Report Signed Patient: VIMAL FUNES MR#: [id number] : 2000 Acct:[id number] Age/Sex: 25 / F ADM Date: 05/18/25 Loc: US Attending Dr: Rossana Ramos Ordering Physician: Rossana Ramos Date of Service: 05/18/25 Procedure(s): US OB BPP w non-stress Accession Number(s): [id number] cc: Rossana Ramos; JENNIFER SEE The [place] [id number] Patient Name: VIMAL FUNES MRN: [facility]:[id number] date: 2000 Sex: F Assigned Patient Location: [facility] Current Patient Location: Accession/Order Number: [id number] Exam Date: 05/18/2025 11:16 Report Date: 05/18/2025 [...] M.D. 05/18/2025 5:08 PM Dictation Location: [facility] Electronically authenticated by: [id number] Y Date: 05/18/2025 17:08 Dictated By: Heriberto Acharya M.D. Signed By: 05/18/252016 DD/ 07 TD/TT: Nursing Professor: [facility] Radiology Study observation (narrative) [facility] US OB BPP W NON-STRESS Ordered By: Radiologist Radiology on 05-18-2025 [facility] Work Phone: Glucose random or fasting- P OCTOrdered By: Sheridan Smallwood on 05-13-2025 External Glucose Fasting Or Random (Fbs) 80 [facility] US OB BPP W NON-STRESS on 05-11-2025 [place] [address] Ultrasound Report Signed Patient: VIMAL FUNES MR#: [id number] : 2000 Acct:[id number] Age/Sex: 25 / F ADM Date: 05/11/25 Loc: [facility] 253-[address]: Rossana Ramos Ordering Physician: Rossana Ramos Date of Service: 05/11/25 Procedure(s): US OB BPP w non-stress Accession Number(s): [id number] cc: JENNIFER Watkins [place] [id number] Patient Name: VIMAL FUNES MRN: [facility]:[id number] date: 2000 Sex: F Assigned Patient Location: [facility] Current Patient Location: [facility] Accession/Order Number: [id number] Exam Date: 05/11/2025 12:01 Report Date: 05/11/2025 12:02 At the request of: ROSSANA RAMOS Procedure: US OB BPP w non-stress Biophysical profile. Reason for exam: Gestational diabetes COMPARISON: 05/04/2025 TECHNIQUE: Transabdominal imaging of the gravid uterus was obtained. FINDINGS: The truss designer reports a BPP of 8 out of 8. DANYA is normal at 11.9 cm. heart rate 138 bpm. US/US OB BPP w non-stress IMPRESSION: BPP 8 out of 8. Impression dictated by: Bulmaro Arias Jr., D.O. 05/11/2025 12:02 PM Dictation Location: [place] [address] Electronically authenticated by: [id number] Y Date: 05/11/2025 12:02 Dictated By: Bulmaro Arias M.D. Signed By: 05/11/25 1204 DD/ 1202 TD/TT: Nursing Professor: [facility] Radiology, Radiologist, MD - 05/11/2025 [place] [address] Ultrasound Report Signed Patient: VIMAL FUNES MR#: [id number] : 2000 Acct:[id number] Age/Sex: 25 / F ADM Date: 05/11/25 Loc: [facility] 253-[address]: Rossana Ramos Ordering Physician: Rossana Ramos Date of Service: 05/11/25 Procedure(s): US OB BPP w non-stress Accession Number(s): [id number] cc: JENNIFER Watkins [place] [id number] Patient Name: VIMAL FUNES MRN: [id number] date: 2000 Sex: F Assigned Patient Location: [facility] Current Patient Location: [facility] Accession/Order Number: [id number] Exam Date: 05/11/2025 12:01 Report Date: 05/11/2025 12:02 At the request of: ROSSANA RAMOS Procedure: US OB BPP w non-stress Biophysical profile. Reason for exam: Gestational diabetes COMPARISON: 05/04/2025 TECHNIQUE: Transabdominal imaging of the gravid uterus was obtained. FINDINGS: The truss designer reports a BPP of 8 out of 8. DANYA is normal at 11.9 cm. heart rate 138 bpm. US/US OB BPP w non-stress IMPRESSION: BPP 8 out of 8. Impression dictated by: Bulmaro Arias Jr., D.O. 05/11/2025 12:02 PM Dictation Location: [place] [address] Electronically authenticated by: [id number] Y Date: 05/11/2025 12:02 Dictated By: Bulmaro Arias M.D. Signed By: 05/11/25 1204 DD/ 1202 TD/TT: Nursing Professor: [facility] Radiology Study observation (narrative) [facility] US OB BPP W NON-STRESS Ordered By: Radiologist Radiology on 05-11-2025 [facility]al[facility] e Work Phone: [facility] TOTAL PROTEIN 24 HOUR UR INEon 05-06-2025 TOTAL PROTEIN URINE RANDOM <6.0 NINF - 11.9 mg/dL [facility] Bfly TOTAL VOLUME 24 HOUR URINE 3700 mL/24hr [facility] Bfly [facility] Vascular Closure e 2nd hr Glucose Tolerance 100 gm loadon 05-04-2025 Glucose Tolerance Test 2 Hour 186 [facility] ALL CBC WITH AUTO DIFFon BASOPHILS ABSOLUTE AUTO [address] [facility] Basophils/100 WBC (Bld) 0.2 % 0.2 - 2.0 % [facility] Eosinophils/100 WBC (Bld) 2.6 % 0.9 - 7.0 % [facility] Erythrocyte distribution width (RBC) [Ratio] 12.7 % 11.0 - 15.0 % [facility] Hematocrit (Bld) [Volume fraction] 39.5 % 36.0 - 48.0 % [facility] Hemoglobin (Bld) [Mass/Vol] 13.7 g/dL 12.0 - 16.0 g/dL [facility] IMMATURE GRANULOCYTES ABS AUTO 0.[address] [facility] Immature granulocytes/100 WBC (Bld) 0.4 % 0.0 - 0.5 % [facility] Interpretation and review of laboratory results Abnormal [facility] LYMPHOCYTES ABSOLUTE AUTO 1.6 [facility] Lymphocytes/100 WBC (Bld) 12.6 % Low 20.5 - 60.0 % [facility] MCH (RBC) [Entitic mass] 31.9 pg 26.7 - 34.[address] [facility] MCHC (RBC) [Mass/Vol] 34.7 g/dL 29.9 - 35.2 g/dL [facility] MCV (RBC) [Entitic vol] 92.1 fL 81.0 - 99.[address] [facility] MONOCYTES ABSOLUTE AUTO 0.6 [facility] Monocytes/100 WBC (Bld) 5 % 1.7 - 12.0 % [facility] NEUTROPHILS ABSOLUTE AUTO 9.[address] [facility] Neutrophils/100 WBC (Bld) 79.2 % High 43.0 - 75.0 % [facility] Platelet mean volume (Bld) [Entitic vol] 11 fL 9.5 - 13.[address] [facility] TBH EO # 0.3 [facility] TB PLT 226 [facility] TB RBC 4.29 [facility] TBH WBC 12.5 High [facility] Healthcar e CLINISYNC Glucose tolerance, 1 houron 05-04-2025 Glucose Tolerance Test 1 Hour 234 [facility] Glucose tolerance, 3 hourson 05-04-2025 Glucose Tolerance Test 3 Hour 133 [facility] Glucose, tolerance fastingon 05-04-2025 Glucose Tolerance Test Fasting 108 [facility] No Panel Informationon 05-04 [facility] Healthcar e US OB BPP W NON-STRESS on 05-04-[address] [address] Ultrasound Report Signed Patient: VIMAL FUNES MR#: [id number] : 2000 Acct:[id number] Age/Sex: 25 / F ADM Date: 05/04/25 Loc: [facility] 250-[address]: Rossana Ramos Ordering Physician: Rossana Ramos Date of Service: 05/04/25 Procedure(s): US OB BPP w non-stress Accession Number(s): [id number] cc: Rossana Ramos; JENNIFER SEE The [address] [address] Patient Name: VIMAL FUNES MRN: [facility]:[id number] date: 2000 Sex: F Assigned Patient Location: [facility] Current Patient Location: [facility] Accession/Order Number: [id number] Exam Date: 05/04/2025 12:08 Report Date: 05/04/2025 12:09 At the request of: ROSSANA RAMOS Procedure: US OB BPP w non-stress Biophysical profile. Reason for exam: Gestational diabetes COMPARISON: None TECHNIQUE: Transabdominal imaging of the gravid uterus was obtained. FINDINGS: The truss designer reports a BPP of 8 out of 8. DANYA is normal at 12.4 cm. heart rate 150 bpm. US/US OB BPP w non-stress IMPRESSION: BPP 8 out of 8. Impression dictated by: Bulmaro Arias Jr., D.O. 05/04/2025 12:09 PM Dictation Location: [place] [address] Electronically authenticated by: [id number] Y Date: 05/04/2025 12:09 Dictated By: Bulmaro Arias M.D. Signed By: 05/04/25 1212 DD/ 1209 TD/TT: Nursing Professor: [facility] Radiology, Radiologist, MD - 05/04/2025 [place] [address] Ultrasound Report Signed Patient: VIMAL FUNES MR#: [id number] : 2000 Acct:[id number] Age/Sex: 25 / F ADM Date: 05/04/25 Loc: [facility] 250-[address]: Rossana Ramos Ordering Physician: Rossana Ramos Date of Service: 05/04/25 Procedure(s): US OB BPP w non-stress Accession Number(s): [id number] cc: JENNIFER Watkins [address] [id number] Patient Name: VIMAL FUNES MRN: [id number]:[id number] date: 2000 Sex: F Assigned Patient Location: [facility] Current Patient Location: [facility] Accession/Order Number: [id number] Exam Date: 05/04/2025 12:08 Report Date: 05/04/2025 12:09 At the request of: ROSSANA RAMOS Procedure: US OB BPP w non-stress Biophysical profile. Reason for exam: Gestational diabetes COMPARISON: None TECHNIQUE: Transabdominal imaging of the gravid uterus was obtained. FINDINGS: The truss designer reports a BPP of 8 out of 8. DANYA is normal at 12.4 cm. heart rate 150 bpm. US/US OB BPP w non-stress IMPRESSION: BPP 8 out of 8. Impression dictated by: Bulmaro Arias Jr., D.O. 05/04/2025 12:09 PM Dictation Location: [facility] Electronically authenticated by: [id number] Y Date: 05/04/2025 12:09 Dictated By: Bulmaro Arias M.D. Signed By: 05/04/25 1212 DD/ 1209 TD/TT: Nursing Professor: [facility] Radiology Study observation (narrative) [facility] US OB BPP W NON-STRESS Ordered By: Radiologist Radiology on 05-04-2025 [facility] Stat [employer] e Work Phone: US OB GROWTHon 05-04-2025 [place] [address] Ultrasound Report Signed Patient: VIMAL FUNES MR#: [id number] : 2000 Acct:[id number] Age/Sex: 25 / F ADM Date: 05/04/25 Loc: [facility] 250-[address]: Rossana Ramos Ordering Physician: Rossana Ramos Date of Service: 05/04/25 Procedure(s): US OB growth Accession Number(s): [id number] cc: JENNIFER Watkins [address] [address] Patient Name: VIMAL FUNES MRN: [facility]:[id number] date: 2000 Sex: F Assigned Patient Location: [facility] Current Patient Location: [facility] Accession/Order Number: [id number] Exam Date: 05/04/2025 12:06 Report Date: 05/04/2025 [...] Jr., D.O. 05/04/2025 12:08 PM Dictation Location: [facility]ish[facility]owl Electronically authenticated by: [id number] Y Date: 05/04/2025 12:08 Dictated By: Bulmaro Arias M.D. Signed By: 05/04/25 1211 DD/ 1208 TD/TT: Nursing Professor: [facility] Radiology, Radiologist, - 05/04/2025 [place] [address] Ultrasound Report Signed Patient: VIMAL FUNES MR#: [id number] : 2000 Acct:[id number] Age/Sex: 25 / F ADM Date: 05/04/25 Loc: [facility] 250-[address]: Rossana Ramos Ordering Physician: Rossana Ramos Date of Service: 05/04/25 Procedure(s): US OB growth Accession Number(s): [id number] cc: JENNIFER Watkins [address], [place] [id number] Patient Name: VIMAL FUNES MRN: [id number] date: 2000 Sex: F Assigned Patient Location: [facility] Current Patient Location: [facility] [facility] Accession/Order Number: [id number] Exam Date: 05/04/2025 12:06 Report Date: 05/04/2025 [...] Jr., D.O. 05/04/2025 12:08 PM Dictation Location: [employer] Electronically authenticated by: [id number] Y Date: 05/04/2025 12:08 Dictated By: Bulmaro Arias M.D. Signed By: 05/04/25 1211 DD/ 1208 TD/TT: Nursing Professor: [facility] Radiology Study observation (narrative) [facility] OB GROWTHOrdered By: Jeimy ologist Radiology on 05-04-2025 [facility] Work Phone: Urinalysis macro (dipstick) panel (U)on 04-30-2025 Bilirubin, UA Negative Negative - 4(70) +++ mg/dL [facility] Blood, UA Negative Negative - 50 Jason/mcL [facility] Clarity, UA Clear [facility] Healthca re Color, UA Yellow [facility] e Glucose, UA Positive Negative - 2000(110) ++++ mg/dL [facility] Interpretation and review of laboratory results Abnormal [facility] Ketones, UA Negative Negative - 160(16) ++++ mg/dL [facility] Leukocytes, UA Positive Negative - 500+++ Carlos/mcL [facility] Nitrite, UA Negative Negative - Positive [facility] pH, UA 6 5 - 9 [facility], UA Negative Negative - 1999(20) ++++ mg/dL [facility] Spec Grav, UA 1.01 1 - 1.03 [facility] Urobilinogen, UA 1.0 0.2 - 12 mg/dL [facility] Health[facility] e ALL CBC WITH AUTO DIFFon BASOPHILS ABSOLUTE AUTO 0 [facility] Basophils/100 WBC (Bld) 0.2 % 0.2 - 2.0 % [facility] Eosinophils/100 WBC (Bld) 2.2 % 0.9 - 7.0 % [facility] Erythrocyte distribution width (RBC) [Ratio] 12.9 % 11.0 - 15.0 % [facility] Hematocrit (Bld) [Volume fraction] 40 % 36.0 - 48.0 % [facility] Hemoglobin (Bld) [Mass/Vol] 13.6 g/dL 12.0 - 16.0 g/dL [facility] IMMATURE GRANULOCYTES ABS AUTO 0.[address] [facility] Immature granulocytes/100 WBC (Bld) 0.3 % 0.0 - 0.5 % [facility] Interpretation and review of laboratory results Abnormal [facility] LYMPHOCYTES ABSOLUTE AUTO 1.4 [facility] Lymphocytes/100 WBC (Bld) 10.8 % Low 20.5 - 60.0 % [facility] MCH (RBC) [Entitic mass] 31.7 pg 26.7 - 34.[address] [facility] MCHC (RBC) [Mass/Vol] 34 g/dL 29.9 - 35.2 g/dL [facility] MCV (RBC) [Entitic vol] 93.2 fL 81.0 - 99.[address] [facility] MONOCYTES ABSOLUTE AUTO 0.5 [facility] Monocytes/100 WBC (Bld) 4.3 % 1.7 - 12.0 % [facility] NEUTROPHILS ABSOLUTE AUTO 10.[address] [facility] Neutrophils/100 WBC (Bld) 82.2 % High 43.0 - 75.0 % [facility] Platelet mean volume (Bld) [Entitic vol] 10.6 fL 9.5 - 13.[address] [facility] TBH EO # 0.3 [facility] PLT 202 [facility] RBC 4.29 [facility] WBC 12.5 High [facility] Glucose 1h post 50g loadon 0 04-27-2025 Glucose, 1 hr PP 50GM dose 171 [facility] No Panel Informationon 04-27 [facility] Urinalysis macro (dipstick) panel (U)on 04-25-2025 Bilirubin, UA Negative Negative - 4(70) +++ mg/dL [facility] Healthcare Blood, UA Negative Negative - 50 Jason/mcL [facility] Healthcare Clarity, UA Clear [facility] Color, UA Yellow [facility] Glucose, UA Negative Negative - 1999(110) ++++ mg/dL [facility] Interpretation and review of laboratory results Normal [facility] Healthcare Ketones, UA Negative Negative - 160(16) ++++ mg/dL [facility] Healthcare Leukocytes, UA Negative Negative - 500+++ Carlos/mcL [facility] Healthcare Nitrite, UA Negative Negative - Positive [facility] pH, UA 6.5 5 - 9 [facility] Protein, UA Negative Negative - 1999(20) ++++ mg/dL [facility] Healthcare Spec Grav, UA 1.01 1 - 1.03 [facility] care Urobilinogen, UA 0.2 0.2 - 12 mg/dL [facility] Urinalysis macro (dipstick) panel (U)on 04-11-2025 Bilirubin, UA Negative Negative - 4(70) +++ mg/dL [facility] Healthcare Blood, UA Negative Negative - 50 Jason/mcL [facility] Healthcare Clarity, UA Clear [facility] Color, UA Yellow [facility] Glucose, UA Negative Negative - 1999(110) ++++ mg/dL [facility] Interpretation and review of laboratory results Normal [facility] Healthcare Ketones, UA Negative Negative - 160(16) ++++ mg/dL [facility] Leukocytes, UA Negative Negative - 500+++ Carlos/mcL [facility] Healthcare Nitrite, UA Negative Negative - Positive [facility] pH, UA 7 5 - 9 [facility] Protein, UA Negative Negative - 1999(20) ++++ mg/dL [facility] Healthcare Spec Grav, UA 1.005 1 - 1.03 [facility] Urobilinogen, UA 1.0 0.2 - 12 mg/dL [facility] US OB INCOMPLETE ANATOMYon 0 03-25-2025 [place] [address] Ultrasound Report Signed Patient: VIMAL FUNES MR#: [id number] : 2000 Acct:[id number] Age/Sex: 24 / F ADM Date: 03/23/25 Loc: US Attending Dr: Jose Rodriguez D.O. Ordering Physician: Jose Rodriguez D.O. Date of Service: 03/23/25 Procedure(s): US OB incomplete anatomy Accession Number(s): [id number] cc: JENNIFER SEE ; Jose Rodriguez D.O. [place] [id number] Patient Name: VIMAL FUNES MRN: [id number]:[id number] date: 2000 Sex: F Assigned Patient Location: US Current Patient Location: US Accession/Order Number: [id number] Exam Date: 03/25/2025 08:23 Report Date: 03/25/2025 [...] Brown M.D. 03/25/2025 8:25 AM Dictation Location: [place] [address] Electronically authenticated by: [id number] Y Date: 03/25/2025 08:25 Dictated By: Meghana Brown M.D. Signed By: 03/25/25826 DD/ 4 TD/TT: Nursing Professor: [facility] Radiology, Radiologist, MD - 03/25/2025 [place] [address] Ultrasound Report Signed Patient: VIMAL FUNES MR#: [id number] : 2000 Acct:[id number] Age/Sex: 24 / F ADM Date: 03/23/25 Loc: US Attending Dr: Jose Rodriguez D.O. Ordering Physician: Jose Rodriguez D.O. Date of Service: 03/23/25 Procedure(s): US OB incomplete anatomy Accession Number(s): [id number] cc: JENNIFER SEE ; Jose Rodriguez D.O. The [place] [id number] Patient Name: VIMAL FUNES MRN: [facility]:[id number] date: 2000 Sex: F Assigned Patient Location: US Current Patient Location: US Accession/Order Number: [id number] Exam Date: 03/25/2025 08:23 Report Date: 03/25/2025 [...] Brown M.D. 03/25/2025 8:25 AM Dictation Location: [place] [address] Electronically authenticated by: [id number] Y Date: 03/25/2025 08:25 Dictated By: Meghana Brown M.D. Signed By: 03/25/2527 DD/ 4 TD/TT: Nursing Professor: [facility] Radiology Study observation (narrative) [facility] Bfly US OB INCOMPLETE ANATOMYOrde red By: Radiologist Radiology on 03-25-2025 [employer] e Work Phone: Urinalysis macro (dipstick) panel (U)on 03-14-2025 Bilirubin, UA Negative Negative - 4(70) +++ mg/dL [facility] Blood, UA Negative Negative - 50 Jason/mcL [facility] Clarity, UA Clear [facility] Stat Doctorsca re Color, UA Yellow [facility] Stat Doctorscar e Glucose, UA Negative Negative - 1999(110) ++++ mg/dL [facility] Interpretation and review of laboratory results Normal [facility] Ketones, UA Negative Negative - 160(16) ++++ mg/dL [facility] Leukocytes, UA Negative Negative - 500+++ Carlos/mcL [facility] Nitrite, UA Negative Negative - Positive [facility] pH, UA 7 5 - 9 [facility] V[facility] e Protein, UA Negative Negative - 1999(20) ++++ mg/dL [facility] Spec Grav, UA 1.01 1 - 1.03 [facility] Urobilinogen, UA 0.2 0.2 - 12 mg/dL [facility] No Panel InformationOrdered By: Radiologist Radiology on 03-08-2025 [facility] Work Phone: No Panel Informationon 03-08 Radiology Study observation (narrative) [facility] US OB ANATOMYon 03-08-[address] [address] Ultrasound Report Signed Patient: VIMAL FUNES MR#: [id number] : 2000 Acct:[id number] Age/Sex: 24 / F ADM Date: 03/08/25 Loc: US Attending Dr: Jose Rodriguez D.O. Ordering Physician: Jose Rodriguez D.O. Date of Service: 03/08/25 Procedure(s): US OB anatomy Accession Number(s): [id number] cc: JENNIFER SEE ; Jose Rodriguez D.O. [address] [address] Patient Name: VIMAL FUNES MRN: [facility]:[id number] date: 2000 Sex: F Assigned Patient Location: US Current Patient Location: US Accession/Order Number: [id number] Exam Date: 03/08/2025 20:31 Report Date: 03/08/2025 [...] Knapp M.D. 03/08/2025 8:36 PM Dictation Location: [place] [address] Electronically authenticated by: [id number] Y Date: 03/08/2025 20:36 Dictated By: Shivam Knapp D.O. Signed By: 03/08/252037 DD/ 35 TD/TT: Nursing Professor: [facility] Radiology, Radiologist, - 03/08/[address] [address] Ultrasound Report Signed Patient: VIMAL FUNES MR#: [id number] : 2000 Acct:[id number] Age/Sex: 24 / F ADM Date: 03/08/25 Loc: US Attending Dr: Jose Rodriguez D.O. Ordering Physician: Jose Rodriguez D.O. Date of Service: 03/08/25 Procedure(s): US OB anatomy Accession Number(s): [id number] cc: JENNIFER SEE ; Jose Rodriguez D.O. [place] [address] Patient Name: VIMAL FUNES MRN: [facility]:[id number] date: 2000 Sex: F Assigned Patient Location: US Current Patient Location: US Accession/Order Number: [id number] Exam Date: 03/08/2025 20:31 Report Date: 03/08/2025 [...] Knapp M.D. 03/08/2025 8:36 PM Dictation Location: [place] [address] Electronically authenticated by: [id number] Y Date: 03/08/2025 20:36 Dictated By: Shivam Knapp D.O. Signed By: 03/08/252037 DD/ 35 TD/TT: Nursing Professor: [facility] US OB CERVICAL LENGTHon 02-[address] [address] Ultrasound Report Signed Patient: VIMAL FUNES MR#: [id number] : 2000 Acct:[id number] Age/Sex: 24 / F ADM Date: 03/08/25 Loc: US Attending Dr: Jose Rodriguez D.O. Ordering Physician: Jose Rodriguez D.O. Date of Service: 03/08/25 Procedure(s): US OB cervical length Accession Number(s): [id number] cc: JENNIFER SEE ; Jose Rodriguez D.O. [place] [phone] Patient Name: VIMAL FUNES MRN: [facility]:[id number] date: 2000 Sex: F Assigned Patient Location: US Current Patient Location: US Accession/Order Number: [id number] Exam Date: 03/08/2025 20:31 Report Date: 03/08/2025 [...] Knapp M.D. 03/08/2025 8:36 PM Dictation Location: [place] [address] Electronically authenticated by: [id number] Y Date: 03/08/2025 20:36 Dictated By: Shivam Knapp D.O. Signed By: 03/08/252037 DD/ 35 TD/TT: Nursing Professor: [facility] Radiology, Radiologist, MD - 03/08/2025 [place] [address] Ultrasound Report Signed Patient: VIMAL FUNES MR#: [id number] : 2000 Acct:[id number] Age/Sex: 24 / F ADM Date: 03/08/25 Loc: US Attending Dr: Jose Rodriguez D.O. Ordering Physician: Jose Rodriguez D.O. Date of Service: 03/08/25 Procedure(s): US OB cervical length Accession Number(s): [id number] cc: JENNIFER SEE ; Jose Rodriguez D.O. [place] [address] Patient Name: VIMAL FUNES MRN: [facility]:[id number] date: 2000 Sex: F Assigned Patient Location: US Current Patient Location: Accession/Order Number: [id number] Exam Date: 03/08/2025 20:31 Report Date: 03/08/2025 [...] Knapp M.D. 03/08/2025 8:36 PM Dictation Location: [employer] Electronically authenticated by: [id number] Y Date: 03/08/2025 20:36 Dictated By: Shivam Knapp D.O. Signed By: 03/08/252037 DD/ 35 TD/TT: Nursing Professor: ARJUN YOOP,APTIMA HPV,AGE GDLNon AGE GDLN ACOG TESTING Note . RUTH Martinez Comment on above: TESTS RESULT FLAG UN ITS REF RANGE LAB Clinician Provided Cytology Information Source.............Endocervix No. of containers..01 ThinPrep Vial Age Algo ACOG Yris... - 01 FLAG LEGEND: L-Low Normal,H-High Normal,LL-Alert Low,HH-Alert High <-Panic Low,>-Panic High,A-Abnormal,AA-Critical Abnormal Performed at: 01 =G [address] [address] Jenise Byrne MD, IGP, RFX APTIMA HPV ASCU Note . [facility] Comment on above: TESTS RESULT FLAG UN ITS REF RANGE LAB DIAGNOSIS: 02 NEGATIVE FOR INTRAEPITHELIAL LESION OR MALIGNANCY. Specimen adequacy: 02 Satisfactory for evaluation. Endocervical and/or squamous metaplastic cells (endocervical component) are present. Performed by: 02 Whitney Alvarez, Hand Coremaker ([facility]) . 02 Note: Note 02 [...] High,A-Abnormal,AA-Critical Abnormal Performed at: 02 [facility] [address] [place] [address] Jenise Byrne MD, Performed at: =G - [facility] [address], [place] [id number] Ramp Boss: Jenise Byrne MD, Phone: [phone] Performed at: [facility] [address] [place] [id number] Ramp Boss: Jenise Byrne MD, Phone: [phone] SPATULA-ALONE ENDOCERVIX CL[facility] Health[facility] e RECURRENT VAGINITIS (HTRX)on 02-22-2025 ATOPOBIUM VAGINAE 0 [facility] ATOPOBIUM VAGINAE Not detected [facility] BVAB 2,3 (BACTERIAL VAGINOSIS ASSOCIATED BACTERIA 2, 3); MOBILUNCUS SPP 0 [facility] BVAB 2,3 (BACTERIAL VAGINOSIS ASSOCIATED [...] TRICHOMONAS VAGINALIS Not detected [facility] Urinalysis macro (dipstick) panel (U)on 02-20-2025 Bilirubin, UA Negative Negative - 4(70) +++ mg/dL [facility] Blood, UA Negative Negative - 50 Jason/mcL [facility] Clarity, UA Clear [facility] re Color, UA Yellow [facility] Glucose, UA Negative Negative - 2000(110) ++++ mg/dL [facility] Interpretation and review of laboratory results Abnormal [facility] Ketones, UA Negative Negative - 160(16) ++++ mg/dL [facility] Leukocytes, UA Negative Negative - 500+++ Carlos/mcL [facility] Nitrite, UA Negative Negative - Positive [facility] pH, UA 7 5 - 9 [facility] Protein, UA Negative Negative - 1999(20) ++++ mg/dL [facility] Spec Grav, UA 1.01 1 - 1.03 [facility] Urobilinogen, UA 0.2 0.2 - 12 mg/dL [facility] Unlisted Lab Teston 01-16-20 [facility] Urinalysis macro (dipstick) panel (U)on 01-14-2025 Bilirubin, UA Negative Negative - 4(70) +++ mg/dL [facility] Blood, UA Positive Negative - 50 Jason/mcL [facility] Comment on above: trace-intact Clarity, UA Clear [facility] re Color, UA Yellow [facility] Glucose, UA Negative Negative - 1999(110) ++++ mg/dL [facility] Interpretation and review of laboratory results Abnormal [facility] Ketones, UA Negative Negative - 160(16) ++++ mg/dL [facility] Leukocytes, UA Negative Negative - 500+++ Carlos/mcL [facility] Nitrite, UA Negative Negative - Positive [facility] pH, UA 6 5 - 9 [facility] Protein, UA Negative Negative - 1999(20) ++++ mg/dL [facility] Spec Grav, UA 1.005 1 - 1.03 [facility] Urobilinogen, UA 0.2 0.2 - 12 mg/dL [facility] Free Cell DNA (Non-Pro Medica Send Out)on 01-13-2025 [facility] ALL CBC WITH AUTO DIFFon BASOPHILS ABSOLUTE AUTO 0 [facility] Basophils/100 WBC (Bld) 0.4 % 0.2 - 2.0 % [facility] Eosinophils/100 WBC (Bld) 1.7 % 0.9 - 7.0 % [facility] Erythrocyte distribution width (RBC) [Ratio] 12.3 % 11.0 - 15.0 % [facility] IMMATURE GRANULOCYTES ABS AUTO 0.02 [facility] Immature granulocytes/100 WBC (Bld) 0.2 % 0.0 - 0.5 % [facility] Interpretation and review of laboratory results Abnormal [facility] LYMPHOCYTES ABSOLUTE AUTO 1.4 [facility] Lymphocytes/100 WBC (Bld) 15.4 % Low 20.5 - 60.0 % [facility] MCH (RBC) [Entitic mass] 31.6 pg 26.7 - 34.[address] [facility] MCHC (RBC) [Mass/Vol] 34.6 g/dL 29.9 - 35.2 g/dL [facility] MCV (RBC) [Entitic vol] 91.4 fL 81.0 - 99.[address] [facility] MONOCYTES ABSOLUTE AUTO 0.5 [facility] Monocytes/100 WBC (Bld) 5.4 % 1.7 - 12.0 % [facility] NEUTROPHILS ABSOLUTE AUTO [address] [facility] Neutrophils/100 WBC (Bld) 76.9 % High 43.0 - 75.0 % [facility] Platelet mean volume (Bld) [Entitic vol] 10.1 fL 9.5 - 13.[address] [facility] TBH EO # 0.2 [facility] PLT 216 [facility] 4.65 [facility] WBC 9.2 [facility] CBC without diffOrdered By: Lay Peacock on 01-05-2025 Rbc Mcv (Fl) By Automated Count 91.4 [facility] Drug Screen, Urineon 025 Amphetamine/Methamphet amine Negative [facility] Barbiturates Negative [facility] Benzodiazepines Negarive [facility] Cocaine Metabolite Negative [facility] Ecstasy Negative [facility] Methadone Negative [facility] Opiates Negative [facility] Phencyclidine Negative [facility] Thc Marijuana, Urine Negative [facility] HBV surface Ag IA Qlon 01-05 Hepatitis B Surface Antigen Negative [facility] HIV 1+2 Ab+HIV1 p24 Ag IA Ql on 01-05-2025 HIV 1&2 AB/AG Non-Reactive [facility] Hemoglobin A1con 01-05-2025 HbA1c (Bld) [Mass fraction] 5 % 4.0 - 6.0 % [facility] Laboratory - Hematology and Cell countson 01-05-2025 Hematocrit (Bld) [Volume fraction] 42.5 % [facility] Hemoglobin (Bld) [Mass/Vol] 14.7 g/dL [facility] No Panel Informationon 01-05 [facility] Rubella IGG immune statuson 01-05-2025 Rubella immune IgG 1.57 [facility] Type and screenon 01-05-2025 Abo/Rh(D) Positive [facility] US OB TRANSVAGINALon 025 US OB [...] II, MD, PHD at 14-Dec-2024 08:35:59 PM [facility] [employer] Normal Not Available Comment on above: Order Comment: US OB TRANSVAGINAL No LMP recorded. TBH PREG QUANT HCGon 025 HCG QUANTITATIVE 57446 mIU/mL [facility] Comment on above: 5-50 0.2-1 WEEK 50-500 1-2 WEEKS 100-5,000 2-3 WEEKS 500-10,000 3-4 WEEKS 1,000-50,000 4-5 WEEKS 10,000-100,000 5-6 WEEKS 15,000-200,000 6-8 WEEKS 10,000-100,000 2-3 MONTHS CLINISYME [facility] TBH PREG QUANT HCGon 11-19- 025 HCG QUANTITATIVE 6254 mIU/mL [facility] He ltare Comment on above: 5-50 0.2-1 WEEK 50-500 1-2 WEEKS 100-5,000 2-3 WEEKS 500-10,000 3-4 WEEKS 1,000-50,000 4-5 WEEKS 10,000-100,000 5-6 WEEKS 15,000-200,000 6-8 WEEKS 10,000-100,000 2-3 MONTHS [facility]IN[facility] TBH PREG QUANT HCGon 08-18- 024 HCG QUANTITATIVE 6 mIU/mL [facility] Comment on above: 5-50 0.2-1 WEEK 50-500 1-2 WEEKS 100-5,000 2-3 WEEKS 500-10,000 3-4 WEEKS 1,000-50,000 4-5 WEEKS 10,000-100,000 5-6 WEEKS 15,000-200,000 6-8 WEEKS 10,000-100,000 2-3 [facility] ALL CBC WITH AUTO DIFFon BASOPHILS ABSOLUTE AUTO 0 [facility] Basophils/100 WBC (Bld) 0.5 % 0.2 - 2.0 % [facility] Eosinophils/100 WBC (Bld) 6.2 % 0.9 - 7.0 % [facility] Erythrocyte distribution width (RBC) [Ratio] 11.9 % 11.0 - 15.0 % [facility] Hematocrit (Bld) [Volume fraction] 43.8 % 36.0 - 48.0 % [facility] Hemoglobin (Bld) [Mass/Vol] 14.8 g/dL 12.0 - 16.0 g/dL [facility] IMMATURE GRANULOCYTES ABS AUTO 0.02 [facility] Immature granulocytes/100 WBC (Bld) 0.2 % 0.0 - 0.5 % [facility] LYMPHOCYTES ABSOLUTE AUTO 2 [facility] Lymphocytes/100 WBC (Bld) 22.1 % 20.5 - 60.0 % [facility] MCH (RBC) [Entitic mass] 31.7 pg 26.7 - 34.0 pg [facility] MCHC (RBC) [Mass/Vol] 33.8 g/dL 29.9 - 35.2 g/dL [facility] MCV (RBC) [Entitic vol] 93.8 fL 81.0 - 99.0 fL [facility] MONOCYTES ABSOLUTE AUTO 0.5 [facility] Monocytes/100 WBC (Bld) 5.3 % 1.7 - 12.0 % [facility] NEUTROPHILS ABSOLUTE AUTO 5.8 [facility] Neutrophils/100 WBC (Bld) 65.7 % 43.0 - 75.0 % [facility] Platelet mean volume (Bld) [Entitic vol] 10 fL 9.5 - 13.5 fL [facility] TBH EO # 0.6 [facility] TBH PLT 236 [facility] RBC 4.67 [facility] WBC 8.9 [facility] [place] 08-10-2024 L Specimen: [id number] Received: 08/10/24 Status: CAROL Parker Num: [id number] Spec Type: Surgical Subm Dr: Jose Rodriguez Tissues: A Products of Conception - Spontaneous or Missed (CONTENTS OF CONCEPT Procedures: HE/2, Gross/Micro L4 Age/ Patient Sex Location Account Attending Physician FunesVimal / LABELL [id number] Jose Rodriguez SPEC NUM: [id number] RECD: 08/10/24 STATUS: CAROL PARKER NUM: [id number] CAROLIN: 08/10/[address] [facility] [address]: Jose Rodriguez ENTERED: 08/10/[address]: Nadir,Lab SPEC TYPE: Surgical DEPT: MONICA ALTMAN ENTERED BY: [id number] RECV BY: [id number] ORDERED: HE/2, Gross/Micro L4 ORDERED: HE/2, Gross/Micro [...] villi and decidua. No tissue is identified. Numerical Control Lathe Operator sections of the chorionic villi are submitted in cassette A1 with appliance service representative sections of the decidua is submitted in cassette A2. (2, ss, [id number]) CPT Codes 89918 Specimen: [id number] Received: 08/10/24-1501 Status: CAROL Parker Num: [id number] Spec Type: Surgical Subm Dr: Jose Rodriguez Tissues: A Products of Conception - Spontaneous or Missed (CONTENTS OF CONCEPT Procedures: HE/2, Gross/Micro L4 Patient: Vimal Funes [id number] (Continued) Signed (signature on file) Josh Aragon MD 08/13/24 8826 Normal The Counts Include 234 B[facility] At [facility] TB PREG QUANT HCGon 08-10- 024 HCG QUANTITATIVE 240 mIU/mL [facility] Comment on above: 5-50 0.2-1 WEEK 50-500 1-2 WEEKS 100-5,000 2-3 WEEKS 500-10,000 3-4 WEEKS 1,000-50,000 4-5 WEEKS 10,000-100,000 5-6 WEEKS 15,000-200,000 6-8 WEEKS 10,000-100,000 2-3 MONTHS [facility] ALL CBC WITH AUTO DIFFon BASOPHILS ABSOLUTE AUTO 0.1 [facility] Basophils/100 WBC (Bld) 0.5 % 0.2 - 2.0 % [facility] Eosinophils/100 WBC (Bld) 2.8 % 0.9 - 7.0 % [facility] Erythrocyte distribution width (RBC) [Ratio] 11.9 % 11.0 - 15.0 % [facility] Hematocrit (Bld) [Volume fraction] 44.7 % 36.0 - 48.0 % [facility] Hemoglobin (Bld) [Mass/Vol] 15.3 g/dL 12.0 - 16.0 g/dL [facility] IMMATURE GRANULOCYTES ABS AUTO 0.03 [facility] Immature granulocytes/100 WBC (Bld) 0.3 % 0.0 - 0.5 % [facility] Interpretation and review of laboratory results Abnormal [facility] LYMPHOCYTES ABSOLUTE AUTO 1.6 [facility] Lymphocytes/100 WBC (Bld) 14.9 % Low 20.5 - 60.0 % [facility] MCH (RBC) [Entitic mass] 31.7 pg 26.7 - 34.[address] [facility] MCHC (RBC) [Mass/Vol] 34.2 g/dL 29.9 - 35.2 g/dL [facility] MCV (RBC) [Entitic vol] 92.7 fL 81.0 - 99.[address] [facility] MONOCYTES ABSOLUTE AUTO 0.4 [facility] Monocytes/100 WBC (Bld) 3.7 % 1.7 - 12.0 % [facility] NEUTROPHILS ABSOLUTE AUTO 8.[address] [facility] Neutrophils/100 WBC (Bld) 77.8 % High 43.0 - 75.0 % [facility] Platelet mean volume (Bld) [Entitic vol] 10 fL 9.5 - 13.[address] [facility] TBH EO # 0.3 [facility]T 263 [facility] TB RBC 4.82 [facility] TB WBC 10.6 [facility] No Panel Informationon 07-21 [facility] TB DRUG SCREEN RAPID (URINE )on 07-21-2024 AMPHETAMINE SCREEN URINE Negative NEGATIVE [facility] BARBITURATES SCREEN URINE Negative NEGATIVE [facility] BENZODIAZEPINES SCREEN URINE Negative NEGATIVE [facility] BUPRENORPHINE SCREEN URINE Negative NEGATIVE [facility] Comment on above: DRUG CLASS TEST [...] ng/mL CANNABINOID SCREEN URINE Negative NEGATIVE [facility] COCAINE SCREEN URINE Negative NEGATIVE [facility] [facility] METHADONE SCREEN URINE Negative NEGATIVE NO [facility] METHAMPHETAMINES SCREEN URINE Negative NEGATIVE [facility] OPIATE SCREEN URINE Negative NEGATIVE [facility] OXYCODONE SCREEN URINE Negative NEGATIVE NO [facility] PHENCYCLIDINE SCREEN URINE Negative NEGATIVE [facility] TRICYCLIC ANTIDEPRESSANT URINE Negative NEGATIVE [facility] REEFLEX IF POSITIVE [facility] HCG ( test) Ql (U)o n 06-29-2024 Interpretation and review of laboratory results Abnormal [facility] Preg Test, Ur Positive [facility] Urinalysis macro (dipstick) panel (U)on 06-29-2024 Bilirubin, UA Negative Negative - 4(70) +++ mg/dL [facility] Blood, UA Negative Negative - 50 Jason/mcL [facility] Clarity, UA Clear [facility] re Color, UA Yellow [facility] e Glucose, UA Negative Negative - 1999(110) ++++ mg/dL [facility] Interpretation and review of laboratory results Normal [facility] Ketones, UA Negative Negative - 160(16) ++++ mg/dL [facility] Leukocytes, UA Negative Negative - 500+++ Carlos/mcL [facility] Nitrite, UA Negative Negative - Positive [facility] pH, UA 7.0 5 - 9 [facility], [facility] Negative Negative - 1999(20) ++++ mg/dL [facility] Spec Grav, UA 1.015 1 - 1.03 [facility] Urobilinogen, UA 0.2 0.2 - 12 mg/dL [facility] X[facility] hand RT min 3V*on 023 XR hand RT min 3V* [facility] Other XR hand RT min 3V* [facility] Other XR hand RT min 3V* [address] [place] [address] [facility]) Other XR hand RT min 3V* CASSIE Tinoco [address] [facility] Other XR hand RT min 3V* XRay Report [facility] Other XR hand RT min 3V* Signed [facility] Other XR hand RT min 3V* Patient: Vimal Funes MR#: [id number] [place] [facility] Other XR hand RT min 3V* 18 [facility] Other XR hand RT min 3V* : 2000 Acct:[id number] [facility] Other XR hand RT min 3V* Age/Sex: 22 / F ADM Date: 12/26/22 [facility] Other XR hand RT min 3V* Loc: XDUC Room: Type: [facility] Other XR hand RT min 3V* Attending Dr: Jennifer GIL [facility] Other XR hand RT min 3V* Copies to: JEFFERY Rodriguez [facility] Other XR hand RT min 3V* Ordering Provider: JEFFERY Rodriguez [facility] Other XR hand RT min 3V* Date of Service: 12/26/22 [facility] Other XR hand RT min 3V* XR/XR hand RT min 3V*: RIGHT HAND INJURY [facility] Other XR hand RT min 3V* RIGHT HAND - 4 views [facility] Other XR hand RT min 3V* REASON FOR EXAM: Patient had right thumb hyperextended yesterday when trying to open the door. Now [facility] Other XR hand RT min 3V* with pain. [facility] Other XR hand RT min 3V* COMPARISON: None [facility] Other XR hand RT min 3V* FINDINGS: [facility] Other XR hand RT min 3V* No focal soft tissue abnormality. There appears to be avulsion fracture involving the base of the [facility] Other XR hand RT min 3V* distal phalanx of the thumb. Joint spaces appear maintained. No bony erosions. [facility] Other XR hand RT min 3V* XR/XR hand RT min 3V* [facility] Other XR hand RT min 3V* IMPRESSION: [facility] Other XR hand RT min 3V* AVULSION FRACTURE INVOLVING THE BASE OF THE DISTAL PHALANX OF THE THUMB. [facility] Other XR hand RT min 3V* Impression dictated by: Bulmaro Arias Jr., D.O.12/26/2022 1:44 PM [facility] Other XR hand RT min 3V* Dictation Location: [place] [address] [facility] Other XR hand RT min 3V* Transcribed By: LYNETTE 12/26/22 1344 [facility] Other XR hand RT min 3V* Dictated By: Bulmaro Arias Jr, DO 12/26/22 1343 [facility] Other XR hand RT min 3V* Signed By: [facility] Other XR hand RT min 3V* 12/26/22 1344 [facility] agencyQ Other PAP ACOG PANEL 2: 22 to 30on 11-09-2022 . . Normal [facility] Comment on above: Performed By: #### [id number] ####[facility] [address] [place] [id number] Mancini Age Gdln ACOG Testing 21-29 Normal [facility] Comment on above: Performed By: #### 4 [id number] ####[facility] [address] [place], [place] [id number]. Donis Mancini DIAGNOSIS: Comment [facility] Comment on above: Result Comment: NEGA TIVE FOR INTRAEPITHELIAL LESION OR MALIGNANCY. Performed By: #### 4 [id number] ####[facility] [address] [place], [place] [id number] Mancini Methodology: Comment Normal [facility] Comment on above: Result Comment: This liquid based ThinPrep(R) pap test was screened with the use of an image guided system. Performed By: #### 4 [id number] ####[facility] [address] [place], [place] [address]DrGene Mancini Note: Comment [facility] Comment on above: Result Comment: The Pap smear is a screening test designed to aid in the detection of premalignant and malignant conditions of the uterine cervix. It is not a diagnostic procedure and should not be used as the sole means of detecting cervical cancer. Both false-positive and false-negative reports do occur. . Performed By: #### 4 [id number] ####[facility] [address] [place] [id number] Mancini Performed by: Comment Normal [facility] Comment on above: Result Comment: Zuleima Lin, Character Artist (ASCP) Performed By: #### 4 [id number] ####[facility] [address] [place], [place] [id number] Mancini Reflex Criteria: Comment Normal [facility] Comment on above: Result Comment: The HPV DNA reflex criteria were not met with this specimen result therefore, no HPV testing was performed. . Performed By: #### 4 [id number] ####[facility] [address] [place] [address]Dr. Donis Mancini Specimen adequacy: Comment Normal [facility] Comment on above: Result Comment: Sati sfactory for evaluation. Endocervical and/or squamous metaplastic cells (endocervical component) are present. Performed By: #### 4 [id number] ####[facility] [address] [place] [address]Dr. Donis Mancini Cytology Cervical or vaginal smear or scraping studyOrdered By: Jael Nix on 11-02-2022 [facility] CBC AUTO DIFFon 08-11-2022 BASO # 0.0 103/ul Normal 0.0-0.1 [facility] Comment on above: Performed By: #### C T/NGNA #### [facility] [address] [place] [address] Dr. Donis Mancini Basophils/100 WBC (Bld) 0.2 % Normal 0.2-2.0 [facility] Comment on above: Performed By: #### C T/NGNA #### [facility] [address] [place] [address] Dr. Donis Mancini EO # 0.1 103/ul Normal 0.0-0.7 [facility] Comment on above: Performed By: #### C T/NGNA #### [facility] [address] [place] [address] Dr. Donis Mancini Eosinophils/100 WBC (Bld) 0.5 % Critically low 0.9-7.0 [facility] Comment on above: Performed By: #### C T/NGNA #### [facility] [address] [place] [address] Dr. Donis Mancini Erythrocyte distribution width (RBC) [Ratio] 12.5 % Normal 11.0-15.0 [facility] Comment on above: Performed By: #### C T/NGNA #### [facility] [address] [place] [address] Dr. Donis Mancini Hematocrit (Bld) [Volume fraction] 35.9 % Critically low 36.0-48.0 [facility] Comment on above: Performed By: #### C T/NGNA #### [facility] [address] [place] [address] [address] Donis Mancini Hemoglobin (Bld) [Mass/Vol] 12.4 g/dL Normal 12.0-16.0 [facility] Comment on above: Result Comment: michelet ent delivered Performed By: #### C T/NGNA #### [facility] [address] [place] [address] [address] Donis Mancini IG # 0.10 10e3/ul Critically high 0.00-0.03 [facility] Comment on above: Performed By: #### C T/NGNA #### [facility] [address] [place] [address] Dr. Donis Mancini IG % 0.5 % Normal 0.0-0.5 [facility] Comment on above: Performed By: #### C T/NGNA #### [facility] [address] [place] [address] [address] Donis Mancini LYMPH # 1.5 103/ul Normal 1.2-3.8 [facility] Comment on above: Performed By: #### C T/NGNA #### [facility] [address] [place] [address] Dr. Donis Mancini Lymphocytes/100 WBC (Bld) 7.6 % Critically low 20.5-60.0 [facility] Comment on above: Performed By: #### C T/NGNA #### [facility] [address] [place] [address] Dr. Donis Mancini MANUAL DIFF REQ NO Normal [facility] Comment on above: Performed By: #### C T/NGNA #### [facility] [address] [place] [address] [address] Donis Mancini MCH (RBC) [Entitic mass] 32.2 pg Normal 26.7-34.0 [facility] Comment on above: Performed By: #### C T/NGNA #### [facility] [address] [place] [address] Dr. Donis Mancini MCHC (RBC) [Mass/Vol] 34.5 g/dL Normal 29.9-35.2 [facility] Comment on above: Performed By: #### C T/NGNA #### [facility] [address] [place] [address] Dr. Donis Mancini MCV (RBC) [Entitic vol] 93.2 fL Normal 81.0-99.0 [facility] Comment on above: Performed By: #### C T/NGNA #### [facility] [address] [place] [address] Dr. Donis Mancini MONO # 1.3 103/ul Critically high 0.3-0.8 [facility] Comment on above: Performed By: #### C T/NGNA #### [facility] [address] [place] [address] Dr. Donis Mancini Monocytes/100 WBC (Bld) 6.8 % Normal 1.7-12.0 [facility] Comment on above: Performed By: #### C T/NGNA #### [facility] [address] [place] [address] Dr. Donis Mancini NEUT # 16.2 103/ul Critically high 1.4-6.5 [facility] Comment on above: Performed By: #### C T/NGNA #### [facility] [address] [place] [address] Dr. Donis Mancini Neutrophils/100 WBC (Bld) 84.4 % Critically high 43.0-75.0 [facility] Comment on above: Performed By: #### C T/NGNA #### [facility] [address] [place] [address] Dr. Donis Mancini Platelet mean volume (Bld) [Entitic vol] 11.8 fL Normal 9.5-13.5 [facility] Comment on above: Performed By: #### C T/NGNA #### [facility] [address] [place] [address] Dr. Donis Mancini PLT 156 103/ul Normal 150-450 [facility] Comment on above: Performed By: #### C T/NGNA #### [facility] [address] [place], [place] [address] Dr. Donis Mancini RBC 3.85 106/ul Critically low 4.20-5.40 [facility] Comment on above: Performed By: #### C T/NGNA #### [facility] [address] [place], [place] [address] Dr. Donis Mancini WBC 19.2 103/ul Critically high 4.0-11.0 [facility] Comment on above: Performed By: #### C T/NGNA #### [facility] [address] [place], [place] [address] Dr. Donis Mancini [facility]on 07-27 SARS-CoV-2 (COVID-19) RNA INESSA+probe Ql (Unsp spec) Not detected Normal NOT DETECTED [facility] Comment on above: Result Comment: When [...] for this test is supported by the Hand Touch Up Painter of Health and Human Service's declaration that [...] be used). Performed By: #### C VDTBH ####[facility] [address] [place], [place] [address]XwDr. Donis Mancini DRUG SCREEN RAPID (URINE)on 08-10-2022 AMP Negative Normal NEGATIVE [facility] Comment on above: Performed By: #### D RUGRPD ####[facility] [address] [place], [place] [address]Tu. Donis Mancini BAR Negative Normal NEGATIVE [facility] Comment on above: Performed By: #### D RUGRPD ####[facility] [address] [place] [address]Dr. Donis Mancini BUP Negative Normal NEGATIVE [facility] Comment on above: Performed By: #### D RUGRPD ####[facility] [address] [place] [id number]. Laceyjavi Mancini BZO Negative Normal NEGATIVE [facility] Comment on above: Performed By: #### D RUGRPD ####[facility] [address] [place] [address]Dr. Donis Mancini ALEXA Negative Normal NEGATIVE [facility] Comment on above: Performed By: #### D RUGRPD ####[facility] [address] [place], [place] [address]Dr. Donis Mancini CUT-OFFS SEE BELOW Normal [facility] Comment on above: Result Comment: AMP (Amphetamine): 500ng/mL, BAR (Barbituates): 200 ng/mL, BZO (Benzodiazepines): 150 ng/mL, BUP (Buprenorphine): 10 ng/mL, ALEXA (Cocaine): 150 ng/mL, mAMP (Methamphetamine): 500 ng/mL, MTD (Methadone): 200 ng/mL, OPI (Opiates): 100 ng/mL, OXY (Oxycodone): 100 ng/mL, PCP (Phencyclidine): 25 ng/mL, PPX (Propoxyphene): 300 ng/mL, THC (Cannabinoids): 50 ng/mL, TCA (Trycyclic Antidepressants): 300 ng/mL Performed By: #### D RUGRPD ####[facility] [address] [place] [id number]. Donis Mancini DRUG CUT HEADER DRUG CLASS TEST SYSTEM CUT-OFF CONCENTRATIONS ARE FOLLOWS: Normal [facility] Comment on above: Performed By: #### D RUGRPD ####[facility] [address] [place] [id number]. Donis Mancini mAMP Negative Normal NEGATIVE [facility] Comment on above: Performed By: #### D RUGRPD ####[facility] [address] [place] [id number]. Yijavi Mancini MTD Negative Normal NEGATIVE [facility] Comment on above: Performed By: #### D RUGRPD ####[facility] [address] [place] [id number]. Yijavi Mancini OPI Negative Normal NEGATIVE [facility] Comment on above: Performed By: #### D RUGRPD ####[facility] [address] [place] [address]Dr. Yilan Mancini OXY Negative Normal NEGATIVE [facility] Comment on above: Performed By: #### D RUGRPD ####[facility] [address] [place] [address]Dr. Yijavi Mancini PCP Negative Normal NEGATIVE [facility] Comment on above: Performed By: #### D RUGRPD ####[facility] [address] [place], [place] [address]Dr. Yijavi Mancini PPX Negative Normal NEGATIVE [facility] Comment on above: Performed By: #### D RUGRPD ####[facility] [address] [place], [place] [address]Dr. Yijavi Mancini TCA Negative Normal NEGATIVE [facility] Comment on above: Performed By: #### D RUGRPD ####[facility] [address] [place] [address]Dr. Donis Mancini THC Negative Normal NEGATIVE [facility] Comment on above: Performed By: #### D RUGRPD ####[facility] [address] [place], [place] [address]Dr. Donis Mancini TYPE AND SCREENon 08-10-2022 TYPE AND SCREEN Negative Normal [facility] Comment on above: Performed By: #### T NS ####[facility] [address] [place], [place] [address]Dr. Donis Mancini US PREG BIOPHY W NON [...] ESTEFANY BENNETT Date: 2022-08-10 07:18 Normal [facility] US PREG GROWTHon 08-10-2022 US PREG [...] ESTEFANY BENNETT Date: 2022-08-10 07:16 Normal [facility] CBC AUTO DIFFon 08-09-2022 BASO # 0.0 103/ul Normal 0.0-0.1 [facility] Comment on above: Performed By: #### C BC ####[facility] [address] [place] [address]Dr. Donis Mancini Basophils/100 WBC (Bld) 0.2 % Normal 0.2-2.0 [facility] Comment on above: Performed By: #### C BC ####[facility] [address] [place] [address]Dr. Donis Mancini EO # 0.4 103/ul Normal 0.0-0.7 [facility] Comment on above: Performed By: #### C BC ####[facility] [address] [place] [id number]. Donis Mancini Eosinophils/100 WBC (Bld) 2.8 % Normal 0.9-7.0 [facility] Comment on above: Performed By: #### C BC ####[facility] [address] [place] [address]Dr. Donis Mancini Erythrocyte distribution width (RBC) [Ratio] 12.2 % Normal 11.0-15.0 [facility] Comment on above: Performed By: #### C BC ####[facility] [address] [place], [place] [address]Dr. Donis Mancini Hematocrit (Bld) [Volume fraction] 41.4 % Normal 36.0-48.0 [facility] Comment on above: Performed By: #### C BC ####[facility] [address] [place], [place] [address]Dr. Donis Mancini Hemoglobin (Bld) [Mass/Vol] 14.4 g/dL Normal 12.0-16.0 [facility] Comment on above: Performed By: #### C BC ####[facility] [address] [place], [place] [address]Dr. Donis Mancini IG # 0.06 10e3/ul Critically high 0.00-0.03 [facility] Comment on above: Performed By: #### C BC ####[facility] [address] [place], [place] [address]Dr. Donis Mancini IG % 0.5 % Normal 0.0-0.5 [facility] Comment on above: Performed By: #### C BC ####[facility] [address] [place], [place] [address]Dr. Donis Mancini LYMPH # 1.5 103/ul Normal 1.2-3.8 [facility] Comment on above: Performed By: #### C BC ####[facility] X[address] [place], [place] [address]Dr. Donis Mancini Lymphocytes/100 WBC (Bld) 11.7 % Critically low 20.5-60.0 [facility] Comment on above: Performed By: #### C BC ####[facility] [address] [place] [id number]. Donis Mancini MANUAL DIFF REQ NO Normal [facility] Comment on above: Performed By: #### C BC ####[facility] [address] [place] [id number]. Donis Mancini MCH (RBC) [Entitic mass] 31.9 pg Normal 26.7-34.0 [facility] Comment on above: Performed By: #### C BC ####[facility] [address] [place] [id number]. Donis Mancini MCHC (RBC) [Mass/Vol] 34.8 g/dL Normal 29.9-35.2 [facility] Comment on above: Performed By: #### C BC ####[facility] [address] [place], [place] [address]Dr. Donis Mancini MCV (RBC) [Entitic vol] 91.8 fL Normal 81.0-99.0 [facility] Comment on above: Performed By: #### C BC ####[facility] [address] [place], [place] [address]Dr. Donis Mancini MONO # 1.0 103/ul Critically high 0.3-0.8 [facility] Comment on above: Performed By: #### C BC ####[facility] [address] [place], [place] [address]Dr. Donis Mancini Monocytes/100 WBC (Bld) 7.5 % Normal 1.7-12.0 [facility] Comment on above: Performed By: #### C BC ####[facility] [address] [place] [id number]. Donis Mancini NEUT # 10.0 103/ul Critically high 1.4-6.5 [facility] Comment on above: Performed By: #### C BC ####[facility] [address] [place], [place] [address]Dr. Donis Mancini Neutrophils/100 WBC (Bld) 77.3 % Critically high 43.0-75.0 [facility] Comment on above: Performed By: #### C BC ####[facility] [address] [place], [place] [address]Bq. Donis Mancini Platelet mean volume (Bld) [Entitic vol] 11.6 fL Normal 9.5-13.5 [facility] Comment on above: Performed By: #### C BC ####[facility] [address] [place] [id number]. Donis Mancini PLT 184 103/ul Normal 150-450 [facility] Comment on above: Performed By: #### C BC ####[facility] [address] [place] [id number]. Donis Mancini RBC 4.51 106/ul Normal 4.20-5.40 [facility] Comment on above: Performed By: #### C BC ####[facility] [address] [place] [id number]. Donis Mancini WBC 12.9 103/ul Critically high 4.0-11.0 [facility] Comment on above: Performed By: #### C BC ####[facility] [address] [place] [id number] Mancini LDHon 08-09-2022 LDH 167 U/L Normal 81-234 [facility] Comment on above: Performed By: #### C T/NGNA #### [facility] [address] [place] [address] [address] Donis Mancini PROF 14(COMP METB)on 022 Albumin [Mass/Vol] 2.7 g/dL Critically low 3.4-5.0 [facility] Comment on above: Performed By: #### C T/NGNA #### [facility] [address] [place] [address] [address] Donis Mancini Albumin/Globulin [Mass ratio] 0.6 {ratio} Normal [facility] Comment on above: Performed By: #### C T/NGNA #### [facility] [address] [place] [address] [address] Donis Mancini ALP [Catalytic activity/Vol] 176 U/L Critically high 46-116 [facility] Comment on above: Performed By: #### C T/NGNA #### [facility] [address] [place] [address] [address] Donis Mancini ALT [Catalytic activity/Vol] 20 U/L Normal 14-59 [facility] Comment on above: Performed By: #### C T/NGNA #### [facility] [address] [place] [address] [address] Donis Mancini Anion gap [Moles/Vol] 12.9 mmol/L Normal [facility] Comment on above: Performed By: #### C T/NGNA #### [facility] [address] [place] [address] [address] Donis Mancini AST [Catalytic activity/Vol] 20 U/L Normal 15-37 [facility] Comment on above: Performed By: #### C T/NGNA #### [facility] [address] [place] [address] [address] Donis Mancini Bilirubin [Mass/Vol] 0.1 mg/dL Critically low 0.2-1.0 [facility] Comment on above: Performed By: #### C T/NGNA #### [facility] [address] [place] [address] [address] Donis Mancini Calcium [Mass/Vol] 9.1 mg/dL Normal 8.5-10.1 [facility] Comment on above: Performed By: #### C T/NGNA #### [facility] [address] [place] [address] [address] Donis Mancini Chloride [Moles/Vol] 104 mmol/L Normal 98-107 [facility] Comment on above: Performed By: #### C T/NGNA #### [facility] [address] [place] [address] [address] Donis Mancini CO2 [Moles/Vol] 22.9 mmol/L Normal 21.0-32.0 [facility] Comment on above: Performed By: #### C T/NGNA #### [facility] [address] [place] [address] [address] Donis Mancini Creatinine [Mass/Vol] 0.43 mg/dL Critically low 0.55-1.02 [facility] Comment on above: Performed By: #### C T/NGNA #### [facility] [address] [place] [address] Dr. Donis Mancini EGFR-AF POLISH >60 Normal >=60 [facility] Comment on above: Performed By: #### C T/NGNA #### [facility] [address] [place] [address] [address] Donis Mancini EGFR-NON AF POLISH >60 Normal >=60 [facility] Comment on above: Performed By: #### C T/NGNA #### [facility] [address] [place] [address] [address] Donis Mancini Globulin (S) [Mass/Vol] 4.2 g/dL Normal [facility] Comment on above: Performed By: #### C T/NGNA #### [facility] [address] [place] [address] Dr. Donis Mancini Glucose [Mass/Vol] 95 mg/dL Normal 74-106 [facility] Comment on above: Performed By: #### C T/NGNA #### [facility] [address] [place] [address] Dr. Donis Mancini Potassium [Moles/Vol] 3.8 mmol/L Normal 3.5-5.1 [facility] Comment on above: Performed By: #### C T/NGNA #### [facility] [address] [place] [address] Dr. Donis Mancini Protein [Mass/Vol] 6.9 g/dL Normal 6.4-8.2 [facility] Comment on above: Performed By: #### C T/NGNA #### [facility] [address] [place] [address] Dr. Donis Mancini Sodium [Moles/Vol] 136 mmol/L Normal 136-145 [facility] Comment on above: Performed By: #### C T/NGNA #### [facility] [address] [place] [address] [address] Donis Mancini Urea nitrogen [Mass/Vol] 10.0 mg/dL Normal 7.0-18.0 [facility] Comment on above: Performed By: #### C T/NGNA #### [facility] [address] [place] [address] Dr. Donis Mancini Urea nitrogen/Creatinine [Mass ratio] 23.3 mg/mg Normal [facility] Comment on above: Performed By: #### C T/NGNA #### [facility] [address] [place] [address] Dr. Donis Mancini URIC ACID SERUMon 08-09-2022 Urate [Mass/Vol] 3.6 mg/dL Normal 2.6-6.0 The [facility] Comment on above: Performed By: #### C T/NGNA #### [facility] [address] [place] [address] Dr. Donis Mancini CBC AUTO DIFFon 08-07-2022 BASO # 0.0 103/ul Normal 0.0-0.1 [facility] Comment on above: Performed By: #### U AMIC #### [facility] [address] [place] [address] Dr. Donis Mancini Basophils/100 WBC (Bld) 0.2 % Normal 0.2-2.0 [facility] Comment on above: Performed By: #### U AMIC #### [facility] [address] [place] [address] Dr. Donis Mancini EO # 0.2 103/ul Normal 0.0-0.7 [facility] Comment on above: Performed By: #### U AMIC #### [facility] [address] [place] [address] Dr. Donis Mancini Eosinophils/100 WBC (Bld) 1.8 % Normal 0.9-7.0 [facility] Comment on above: Performed By: #### U AMIC #### [facility] [address] [place] [address] Dr. Donis Mancini Erythrocyte distribution width (RBC) [Ratio] 12.3 % Normal 11.0-15.0 [facility] Comment on above: Performed By: #### U AMIC #### [facility] [address] [address] [address] Donis Mancini Hematocrit (Bld) [Volume fraction] 45.7 % Normal 36.0-48.0 [facility] Comment on above: Performed By: #### U AMIC #### [facility] [address] [address] [address] Donis Mancini Hemoglobin (Bld) [Mass/Vol] 16.0 g/dL Normal 12.0-16.0 [facility] Comment on above: Performed By: #### U AMIC #### [facility] [address] [address] [address] Donis Mancini IG # 0.07 10e3/ul Critically high 0.00-0.03 [facility] Comment on above: Performed By: #### U AMIC #### [facility] [address] [address] [address] Donis Mancini IG % 0.5 % Normal 0.0-0.5 [facility] Comment on above: Performed By: #### U AMIC #### [facility] [address] [address] [address] Donis Mancini LYMPH # 1.5 103/ul Normal 1.2-3.8 [facility] Comment on above: Performed By: #### U AMIC #### [facility] [address] [address] [address] Donis Mancini Lymphocytes/100 WBC (Bld) 11.2 % Critically low 20.5-60.0 [facility] Comment on above: Performed By: #### U AMIC #### [facility] [address] [address] [address] Donis Mancini MANUAL DIFF REQ NO Normal [facility] Comment on above: Performed By: #### U AMIC #### [facility] [address] [address] [address] Donis Mancini MCH (RBC) [Entitic mass] 32.0 pg Normal 26.7-34.0 [facility] Comment on above: Performed By: #### U AMIC #### [facility] [address] [address] [address] Donis Mancini MCHC (RBC) [Mass/Vol] 35.0 g/dL Normal 29.9-35.2 [facility] Comment on above: Performed By: #### U AMIC #### [facility] [address] [address] [address] Donis Mancini MCV (RBC) [Entitic vol] 91.4 fL Normal 81.0-99.0 [facility] Comment on above: Performed By: #### U AMIC #### [facility] [address] [address] [address] Donis Mancini MONO # 0.9 103/ul Critically high 0.3-0.8 [facility] Comment on above: Performed By: #### U AMIC #### [facility] [address] [address] [address] Donis Mancini Monocytes/100 WBC (Bld) 6.3 % Normal 1.7-12.0 [facility] Comment on above: Performed By: #### U AMIC #### [facility] [address] [address] [address] Donis Mancini NEUT # 10.9 103/ul Critically high 1.4-6.5 The [facility] Comment on above: Performed By: #### U AMIC #### [facility] [address] [address] [address] Donis Mancini Neutrophils/100 WBC (Bld) 80.0 % Critically high 43.0-75.0 [facility] Comment on above: Performed By: #### U AMIC #### [facility] [address] [address] [address] Donis Mancini Platelet mean volume (Bld) [Entitic vol] 11.5 fL Normal 9.5-13.5 [facility] Comment on above: Performed By: #### U AMIC #### [facility] [address] [address] [address] Donis Mancini PLT 182 103/ul Normal 150-450 [facility] Comment on above: Performed By: #### U AMIC #### [facility] [address] [place], [place] [address] Dr. Donis Mancini RBC 5.00 106/ul Normal 4.20-5.40 [facility] Comment on above: Performed By: #### U AMIC #### [facility] [address] [place], [place] [address] Dr. Donis Mancini WBC 13.6 103/ul Critically high 4.0-11.0 [facility] Comment on above: Performed By: #### U AMIC #### [facility] [address] [address] [address] Donis Mancini LDHon 08-07-2022 LDH 171 U/L Normal 81-234 [facility] Comment on above: Performed By: #### C MP, URIC, LDH ####[facility] [address] [address]DrGene Mancini PROF 14(COMP METB)on 022 Albumin [Mass/Vol] 2.9 g/dL Critically low 3.4-5.0 [facility] Comment on above: Performed By: #### C MP, URIC, LDH ####[facility] [address] [address]DrGene Mancini Albumin/Globulin [Mass ratio] 0.6 {ratio} Normal [facility] Comment on above: Performed By: #### C MP, URIC, LDH ####[facility] [address] [address]DrGene Mancini ALP [Catalytic activity/Vol] 192 U/L Critically high 46-116 [facility] Comment on above: Performed By: #### C MP, URIC, LDH ####[facility] [address] [address]DrGene Mancini ALT [Catalytic activity/Vol] 23 U/L Normal 14-59 [facility] Comment on above: Performed By: #### C MP, URIC, LDH ####[facility] [address] [address]DrGene Mancini Anion gap [Moles/Vol] 14.4 mmol/L Normal [facility] Comment on above: Performed By: #### C MP, URIC, LDH ####[facility] [address] [address]Dr. Donis Mancini AST [Catalytic activity/Vol] 23 U/L Normal 15-37 [facility] Comment on above: Performed By: #### C MP, URIC, LDH ####[facility] [address] [address]Dr. Donis Mancini Bilirubin [Mass/Vol] 0.2 mg/dL Normal 0.2-1.0 [facility] Comment on above: Performed By: #### C MP, URIC, LDH ####[facility] [address] [address]Dr. Donis Mancini Calcium [Mass/Vol] 9.4 mg/dL Normal 8.5-10.1 [facility] Comment on above: Performed By: #### C MP, URIC, LDH ####[facility] [address] [place], [place] [address]Dr. Donis Mancini Chloride [Moles/Vol] 104 mmol/L Normal 98-107 [facility] Comment on above: Performed By: #### C MP, URIC, LDH ####[facility] [address] [place], [place] [address]Dr. Donis Mancini CO2 [Moles/Vol] 21.7 mmol/L Normal 21.0-32.0 The [facility] Comment on above: Performed By: #### C MP, URIC, LDH ####[facility] [address] [place], [place] [address]Dr. Donis Mancini Creatinine [Mass/Vol] 0.46 mg/dL Critically low 0.55-1.02 [facility] Comment on above: Performed By: #### C MP, URIC, LDH ####[facility] [address] [place], [place] [address]Dr. Donis Mancini EGFR-AF POLISH >60 Normal >=60 The [facility] Comment on above: Performed By: #### C MP, URIC, LDH ####[facility] [address] [place], [place] [address]Dr. Donis Mancini EGFR-NON AF POLISH >60 Normal >=60 [facility] Comment on above: Performed By: #### C MP, URIC, LDH ####[facility] [address] [address]Dr. Donis Mancini Globulin (S) [Mass/Vol] 4.6 g/dL Normal [facility] Comment on above: Performed By: #### C MP, URIC, LDH ####[facility] [address] [address]Dr. Donis Mancini Glucose [Mass/Vol] 89 mg/dL Normal 74-106 [facility] Comment on above: Performed By: #### C MP, URIC, LDH ####[facility] [address] [place], [place] [address]Dr. Donis Mancini Potassium [Moles/Vol] 4.1 mmol/L Normal 3.5-5.1 [facility] Comment on above: Performed By: #### C MP, URIC, LDH ####[facility] [address] [place], [place] [address]Dr. Donis Mancini Protein [Mass/Vol] 7.5 g/dL Normal 6.4-8.2 [facility] Comment on above: Performed By: #### C MP, URIC, LDH ####[facility] [address] [place], [place] [address]Dr. Donis Mancini Sodium [Moles/Vol] 136 mmol/L Normal 136-145 [facility] Comment on above: Performed By: #### C MP, URIC, LDH ####[facility] [address] [place], [place] [address]Dr. Donis Mancini Urea nitrogen [Mass/Vol] 8.0 mg/dL Normal 7.0-18.0 [facility] Comment on above: Performed By: #### C MP, URIC, LDH ####[facility] [address] [place], [place] [address]Dr. Donis Mancini Urea nitrogen/Creatinine [Mass ratio] 17.4 mg/mg Normal [facility] Comment on above: Performed By: #### C MP, URIC, LDH ####[facility] [address] [address]Dr. Donis Mancini PROTIMEon 08-07-2022 INR Coag (PPP) [Relative time] {INR} Normal [facility] Comment on above: Performed By: #### U AMIC #### [facility] [address] [place] [address] Dr. Donis Mancini INR GUIDELINES SEE BELOW Normal [facility] Comment on above: Result Comment: NICCI RED INR: 2.0 - 3.0 CONDITIONS NOT LISTED BELOW 2.5 - 3.5 FOR PROSTHETIC HEART VALVE REPLACEMENT 2.5 - 3.5 RECURRENT THROMBOSIS Performed By: #### U AMIC #### [facility] [address] [address] [address] Donis Mancini PT Coag (PPP) [Time] 9.8 s Normal 9.0-11.6 [facility] Comment on above: Performed By: #### U AMIC #### [facility] [address] [place] [address] Dr. Donis Mancini PTTon 08-07-2022 aPTT Coag (Bld) [Time] 28.5 s Normal 22.3-36.2 [facility] Comment on above: Performed By: #### U AMIC #### [facility] [address] [place] [address] Dr. 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 Donis Mancini Clarity (U) CLEAR Normal CLEAR [facility] Comment on above: Performed By: #### U AMIC #### [facility] [address] [place] [address] Dr. Donis Mancini Color (U) LT. YELLOW Normal YELLOW [facility] Comment on above: Performed By: #### U AMIC #### [facility] [address] [place] [address] Dr. Donis Mancini Glucose Ql (U) Negative Normal NEGATIVE The [facility] Comment on above: Performed By: #### U AMIC #### [facility] [address] [address] [address] Donis Mancini Hemoglobin Ql (U) Negative Normal NEGATIVE [facility] Comment on above: Performed By: #### U AMIC #### [facility] [address] [address] [address] Donis Mancini Ketones Ql (U) Negative Normal NEGATIVE [facility] Comment on above: Performed By: #### U AMIC #### [facility] [address] [address] [address] Donis Mancini LEUKOCYTES Negative Normal NEGATIVE [facility] Comment on above: Performed By: #### U AMIC #### [facility] [address] [place] [address] Dr. Donis Mancini Nitrite Ql (U) Negative Normal NEGATIVE [facility] Comment on above: Performed By: #### U AMIC #### [facility] [address] [address] [address] Donis Mancini pH (U) 7.0 [pH] Normal 5-9 [facility] Comment on above: Performed By: #### U AMIC #### [facility] [address] [address] [address] Donis Mancini SPEC GRAVITY <=1.005 Abnormal 1.005-<=1.02 5 [facility] Comment on above: Performed By: #### U AMIC #### [facility] [address] [address] [address] Donis Mancini UA PROTEIN Negative Normal NEGATIVE/ TRACE [facility] Comment on above: Performed By: #### U AMIC #### [facility] [address] [address] [address] Donis Mancini UR MICRO IND NOT INDICATED Normal [facility] Comment on above: Performed By: #### U AMIC #### [facility] [address] [place] [address] Dr. Donis Mancini Urobilinogen Qn (U) 0.2 {Sarah'U}/dL Normal 0.2 - 1. 0 [facility] Comment on above: Performed By: #### U AMIC #### [facility] [address] [address] [address] Donis Mancini URIC ACID SERUMon 08-07-2022 Urate [Mass/Vol] 3.8 mg/dL Normal 2.6-6.0 The [facility] Comment on above: Performed By: #### C MP, URIC, LDH ####[facility] [address] [place], [place] [address]EjDr. Donis Mancini URINE T PROTEIN CREAT RATIOo n 08-07-2022 UR TOTAL PROTEIN <6.0 Normal <=12.0 The [facility] Comment on above: Performed By: #### C T/NGNA #### [facility] [address] [address] [address] Donis Mancini URINE CREAT 13.45 mg/dL Critically low 20.00-300.00 [facility] Comment on above: Performed By: #### C T/NGNA #### [facility] [address] [address] [address] Donis Mancini US PREG BIOPHY W [...] COCO STERN Date: 2022-08-01 08:31 Normal [facility] CHLAMYDIA/GONOCOCCUS INESSA (SW AB/URINE/PAPon 07-31-2022 Chlamydia trachomatis, INESSA Negative Normal Negative [facility] Comment on above: Performed By: #### C T/NGNA #### [facility] [address] [address] [address] Donis Mancini Neisseria gonorrhoeae, INESSA Negative Normal Negative [facility] Comment on above: Performed By: #### C T/NGNA #### [facility] [address] [address] [address] Donis Mancini VAGINITIS/VAGINOSIS DNA PROB Domenic 07-31-2022 Simeon species Negative Normal Negative [facility] Comment on above: Performed By: #### V AGINT ####[facility] [address] [address]Dr. Donis Mancini Gardnerella vaginalis Negative Normal Negative [facility] Comment on above: Performed By: #### V AGINT ####[facility] [address] [address]Dr. Donis Mancini Trichomonas vaginalis Negative Normal Negative [facility] Comment on above: Performed By: #### V AGINT ####[facility] [address] [address]Dr. Donis Mancini GROUP B STREP CULTUREon S. agalactiae Ag Ql (Unsp spec) Culture Observations: NEGATIVE FOR GROUP B STREPTOCOCCUS. Normal [facility] Comment on above: Performed By: #### G BSCX #### [facility] [address] [address] [address] Donis Mancini US PREG BIOPHY W [...] COCO STERN Date: 2022-07-25 09:41 Normal [facility] US PREG GROWTHon 07-11-2022 [...] ESTEFANY BENNETT Date: 2022-07-11 19:28 Normal [facility] Covid-19 PCR (CVDTB)on 06-26 SARS-CoV-2 (COVID-19) RNA INESSA+probe Ql (Unsp spec) Not detected Normal NOT DETECTED [facility] Comment on above: Result Comment: When [...] for this test is supported by the [place] of [employer] and Human Service's declaration that [...] used). Performed By: #### C T/NGNA #### [facility] [address] [place] [address] Dr. Donis Mancini GTT 3 HR PREGon 06-03-2022 Glucose [Mass/Vol] 94 mg/dL Normal 74-106 [facility] Comment on above: Performed By: #### U AMIC #### [facility] [address] [address] [address] Donis Mancini Glucose [Mass/Vol] 147 mg/dL Normal [facility] Comment on above: Performed By: #### U AMIC #### [facility] [address] [address] [address] Donis Mancini Glucose [Mass/Vol] 159 mg/dL Normal [facility] Comment on above: Performed By: #### U AMIC #### [facility] [address] [address] [address] Donis Mancini Glucose [Mass/Vol] 151 mg/dL Normal [facility] Comment on above: Performed By: #### U AMIC #### [facility] [address] [place] [address] Dr. Donis Mancini GLUCOSE - 1HRon 05-21-2022 Glucose [Mass/Vol] 141 mg/dL Critically high 74-106 [facility] Comment on above: Performed By: #### U AMIC #### [facility] [address] [place] [address] Dr. Donis Mancini HEMOGRAM AND PLATELon 2021 Hematocrit (Bld) [Volume fraction] 39.1 % Normal 36.0-48.0 [facility] Comment on above: Performed By: #### U AMIC #### [facility] [address] [place] [address] Dr. Donis Mancini Hemoglobin (Bld) [Mass/Vol] 13.1 g/dL Normal 12.0-16.0 [facility] Comment on above: Performed By: #### U AMIC #### [facility] [address] [place] [address] Dr. Donis Mancini MCH (RBC) [Entitic mass] 32.3 pg Normal 26.7-34.0 [facility] Comment on above: Performed By: #### U AMIC #### [facility] [address] [place] [address] Dr. Donis Mancini MCHC (RBC) [Mass/Vol] 33.5 g/dL Normal 29.9-35.2 [facility] Comment on above: Performed By: #### U AMIC #### [facility] [address] [address] [address] Donis Mancini MCV (RBC) [Entitic vol] 96.5 fL Normal 81.0-99.0 [facility] Comment on above: Performed By: #### U AMIC #### [facility] [address] [address] [address] Donis Mancini PLT 220 103/ul Normal 150-450 [facility] Comment on above: Performed By: #### U AMIC #### [facility] [address] [address] [address] Donis Mancini RBC 4.05 106/ul Critically low 4.20-5.40 [facility] Comment on above: Performed By: #### U AMIC #### [facility] [address] [address] [address] Donis Mancini WBC 12.8 103/ul Critically high 4.0-11.0 The [facility] Comment on above: Performed By: #### U AMIC #### [facility] [address] [place] [address] Dr. Donis Mancini US PREG BIOPHYSICAL NO [...] ESTEFANY BENNETT Date: 2022-05-11 06:25 Normal [facility] CULTURE URINEon 05-10-2022 CULTURE URINE Culture Observations: MODERATE GROWTH OF MIXED GENITAL RAMBO. NO POTENTIAL PATHOGENS SEEN. Normal [facility] Comment on above: Performed By: #### U RCX #### [facility] [address] [address] [address] Donis Mancini UA RANDOM W/MICROSCOPICon BACTERIA LARGE Abnormal NONE SEEN [facility] Comment on above: Performed By: #### U AMIC ####[facility] [address] [address]Dr. Donis Mancini Bilirubin Ql (U) Negative Normal NEGATIVE The [facility] Comment on above: Performed By: #### U AMIC ####[facility] [address] [address]Dr. Donis Mancini CAST NONE SEEN Normal NONE SEEN [facility] Comment on above: Performed By: #### U AMIC ####[facility] [address] [address]Dr. Donis Mancini Clarity (U) CLEAR Normal CLEAR [facility] Comment on above: Performed By: #### U AMIC ####[facility] [address] [address]Dr. Donis Mancini Color (U) YELLOW Normal YELLOW [facility] Comment on above: Performed By: #### U AMIC ####[facility] [address] [address]Dr. Donis Mancini Crystals LM Nom (Urine sed) NONE SEEN Normal NONE SEEN [facility] Comment on above: Performed By: #### U AMIC ####[facility] [address] [address]Dr. Donis Mancini Epithelial cells LM Ql (Urine sed) MODERATE Abnormal NONE SEEN /RARE [facility] Comment on above: Performed By: #### U AMIC ####[facility] [address] [address]Dr. Donis Mancini Glucose Ql (U) 250 mg/dl Abnormal NEGATIVE [facility] Comment on above: Performed By: #### U AMIC ####[facility] [address] [address]Dr. Donis Mancini Hemoglobin Ql (U) TRACE-INTACT Abnormal NEGATIVE [facility] Comment on above: Performed By: #### U AMIC ####[facility] [address] [address]Dr. Donis Macnini Ketones Ql (U) Negative Normal NEGATIVE [facility] Comment on above: Performed By: #### U AMIC ####[facility] [address] [address]Dr. Donis Mancini LEUKOCYTES LARGE Abnormal NEGATIVE [facility] Comment on above: Performed By: #### U AMIC ####[facility] [address] [address]Dr. Donis Mancini MUCOUS NONE SEEN Normal NONE SEEN [facility] Comment on above: Performed By: #### U AMIC ####[facility] [address] [address]Dr. Donis Mancini Nitrite Ql (U) Negative Normal NEGATIVE [facility] Comment on above: Performed By: #### U AMIC ####[facility] [address] [address]Dr. Donis Mancini pH (U) 6.0 [pH] Normal 5-9 [facility] Comment on above: Performed By: #### U AMIC ####[facility] [address] [place], [place] [address]Dr. Donis Mancini RBC 2-5 Abnormal 0-2 [facility] Comment on above: Performed By: #### U AMIC ####[facility] [address] [address]Dr. Donis Mancini SPEC GRAVITY <=1.005 Abnormal 1.005-<=1.02 5 [facility] Comment on above: Performed By: #### U AMIC ####[facility] [address] [address]Dr. Donis Mancini UA PROTEIN Negative Normal NEGATIVE/ TRACE [facility] Comment on above: Performed By: #### U AMIC ####[facility] [address] [address]Dr. Donis Mancini Urobilinogen Qn (U) 0.2 {Sarah'U}/dL Normal 0.2 - 1. 0 [facility] Comment on above: Performed By: #### U AMIC ####[facility] [address] [address]Dr. Donis Mancini WBC 10-20 Abnormal NONE SEEN [facility] Comment on above: Performed By: #### U AMIC ####[facility] [address] [address]Dr. Donis Mancini CULTURE URINEon 04-27-2022 CULTURE URINE Culture Observations: LIGHT GROWTH OF MIXED GENITAL RAMBO. NO POTENTIAL PATHOGENS SEEN. Normal [facility] Comment on above: Performed By: #### U RCX ####[facility] [address] [place], [place] [address]Dr. 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 Donis Mancini Clarity (U) CLEAR Normal CLEAR [facility] Comment on above: Performed By: #### U ACSIND, ICRO ####[facility] [address] [place], [place] [address]Dr. Donis Mancini Color (U) LT. YELLOW Normal YELLOW [facility] Comment on above: Performed By: #### U ACSIND, UMICRO ####[facility] [address] [place], [place] [address]Dr. Donis Mancini Glucose Ql (U) Negative Normal NEGATIVE [facility] Comment on above: Performed By: #### U ACSIND, UMICRO ####[facility] [address] [place], [place] [address]Dr. Donis Mancini Hemoglobin Ql (U) Negative Normal NEGATIVE [facility] Comment on above: Performed By: #### U ACSIND, UMICRO ####[facility] [address] [place], [place] [address]Dr. Donis Mancini Ketones Ql (U) Negative Normal NEGATIVE [facility] Comment on above: Performed By: #### U ACSIND, UMICRO ####[facility] [address] [address]Dr. Donis Mancini LEUKOCYTES SMALL Abnormal NEGATIVE [facility] Comment on above: Performed By: #### DONNA MONIQUE ####[facility] [address] [address]Dr. Donis Mancini Nitrite Ql (U) Negative Normal NEGATIVE [facility] Comment on above: Performed By: #### DONNA MONIQUE ####[facility] [address] [address]Dr. Donis Mancini pH (U) 7.0 [pH] Normal 5-9 [facility] Comment on above: Performed By: #### DONNA MONIQUE ####[facility] [address] [place] [address]Dr. Donis Mancini SPEC GRAVITY 1.015 Normal 1.005-<=1.02 5 [facility] Comment on above: Performed By: #### DONNA MONIQUE ####[facility] [address] [place] [address]Dr. Donis Mancini UA PROTEIN Negative Normal NEGATIVE/ TRACE [facility] Comment on above: Performed By: #### DONNA MONIQUE ####[facility] [address] [place] [address]Dr. Donis Mancini UR MICRO IND INDICATED Normal [facility] Comment on above: Performed By: #### DONNA MONIQUE ####[facility] [address] [place] [address]Dr. Donis Mancini Urobilinogen Qn (U) 0.2 {Sarah'U}/dL Normal 0.2 - 1. 0 [facility] Comment on above: Performed By: #### DONNA MONIQUE ####[facility] [address] [place] [address]Dr. Donis Mancini URINE MICROSCOPIC ONLYon BACTERIA MODERATE Abnormal NONE SEEN [facility] Comment on above: Performed By: #### DONNA MONIQUE ####[facility] [address] [place] [address]Dr. Donis Mancini Bacteria identified Cx Nom (U) INDICATED Normal [facility] Comment on above: Performed By: #### U NELSON UMICRO ####[facility] [address] [place] [address]Dr. Donis Mancini CAST NONE SEEN Normal NONE SEEN [facility] Comment on above: Performed By: #### U NELSON UMICRO ####[facility] [address] [place] [address]Dr. Donis Mancini Crystals LM Nom (Urine sed) NONE SEEN Normal NONE SEEN [facility] Comment on above: Performed By: #### U NEFTALY DAMONICRO ####[facility] [address] [place] [address]Dr. Donis Mancini Epithelial cells LM Ql (Urine sed) MODERATE Abnormal NONE SEEN /RARE [facility] Comment on above: Performed By: #### U NELSON UMICRO ####[facility] [address] [place] [address]Dr. Donis Mancini MUCOUS NONE SEEN Normal NONE SEEN [facility] Comment on above: Performed By: #### U NEFTALY DAMONICRO ####[facility] [address] [place] [address]Dr. Donis Mancini RBC NONE SEEN Abnormal 0-2 [facility] Comment on above: Performed By: #### U NELSON UMICRO ####[facility] [address] [place] [address]Dr. Donis Mancini WBC 2-5 Abnormal NONE SEEN [facility] Comment on above: Performed By: #### U NELSON UMICRO ####[facility] [address] [place] [address]Dr. Donis Mancini US KIDNEYSon 04-27-2022 US KIDNEYS [...] by: ANDREAS AN Date: 2022-04-27 17:48 Normal [facility] CULTURE URINEon 04-16-2022 CULTURE URINE Isolate [...] Trimethoprim/Sulfame thoxazole <=20 S F Normal [facility] Comment on above: Performed By: #### U RCX #### [facility] [address] [place] [address] Dr. Donis Mancini US PREG ANATOMY SINGLEon [...] ESTEFANY BENNETT Date: 2022-04-12 22:22 Normal [facility] UA RANDOM W/MICROSCOPICon BACTERIA SMALL Abnormal NONE SEEN [facility] Comment on above: Performed By: #### U AMIC #### [facility] [address] [place] [address] Dr. Donis Manicni Bilirubin Ql (U) Negative Normal NEGATIVE The [facility] Comment on above: Performed By: #### U AMIC #### [facility] [address] [place] [address] Dr. Donis Mancini CAST NONE SEEN Normal NONE SEEN [facility] Comment on above: Performed By: #### U AMIC #### [facility] [address] [address] [address] Donis Mancini Clarity (U) CLEAR Normal CLEAR [facility] Comment on above: Performed By: #### U AMIC #### [facility] [address] [place] [address] Dr. Donis Mancini Color (U) LT. YELLOW Normal YELLOW [facility] Comment on above: Performed By: #### U AMIC #### [facility] [address] [place] [address] Dr. Donis Mancini Crystals LM Nom (Urine sed) NONE SEEN Normal NONE SEEN [facility] Comment on above: Performed By: #### U AMIC #### [facility] [address] [address] [address] Donis Mancini Epithelial cells LM Ql (Urine sed) FEW Abnormal NONE SEEN /RARE [facility] Comment on above: Performed By: #### U AMIC #### [facility] [address] [address] [address] Donis Mancini Glucose Ql (U) Negative Normal NEGATIVE [facility] Comment on above: Performed By: #### U AMIC #### [facility] [address] [address] [address] Donis Mancini Hemoglobin Ql (U) Negative Normal NEGATIVE The [facility] Comment on above: Performed By: #### U AMIC #### [facility] [address] [place] [address] Dr. Donis Mancini Ketones Ql (U) Negative Normal NEGATIVE [facility] Comment on above: Performed By: #### U AMIC #### [facility] [address] [place] [address] Dr. Donis Mancini LEUKOCYTES LARGE Abnormal NEGATIVE [facility] Comment on above: Performed By: #### U AMIC #### [facility] [address] [address] [address] Donis Mancini MUCOUS NONE SEEN Normal NONE SEEN [facility] Comment on above: Performed By: #### U AMIC #### [facility] [address] [address] [address] Donis Mancini Nitrite Ql (U) Negative Normal NEGATIVE [facility] Comment on above: Performed By: #### U AMIC #### [facility] [address] [address] [address] Donis Mancini pH (U) 5.5 [pH] Normal 5-9 [facility] Comment on above: Performed By: #### U AMIC #### [facility] [address] [place] [address] Dr. Donis Mancini RBC 0-2 Normal 0-2 [facility] Comment on above: Performed By: #### U AMIC #### [facility] [address] [address] [address] Donis Mancini SPEC GRAVITY <=1.005 Abnormal 1.005-<=1.02 5 [facility] Comment on above: Performed By: #### U AMIC #### [facility] [address] [address] [address] Donis Mancini UA PROTEIN Negative Normal NEGATIVE/ TRACE [facility] Comment on above: Performed By: #### U AMIC #### [facility] [address] [address] [address] Donis Mancini Urobilinogen Qn (U) 0.2 {Sarah'U}/dL Normal 0.2 - 1. 0 [facility] Comment on above: Performed By: #### U AMIC #### [facility] [address] [address] [address] Donis Mancini WBC 5-10 Abnormal NONE SEEN [facility] Comment on above: Performed By: #### U AMIC #### [facility] [address] [address] [address] Donis Mancini HEP B SURFACE ANTIGEN SCREEN on 01-23-2022 HBsAg Screen Negative Normal Negative [facility] Comment on above: Performed By: #### U AMIC #### [facility] [address] [address] [address] Donis Mancini HEPATITIS C VIRUS AB W/ REFL EX QUANTon 01-23-2022 HCV AB 0.1 s/co ratio Normal 0.0-0.9 [facility] Comment on above: Performed By: #### H CVPCRR ####[facility] [address] [place] [address]Dr. Donis Mancini Interpretation: Comment Normal The [facility] Comment on above: Result Comment: Nega tive Not infected with HCV, unless recent infection is suspected or other evidence exists to indicate HCV infection. Performed By: #### H CVPCRR ####[facility] [address] [place] [address]Dr. Donis Mancini HIV 1 AND 2 WITH REFLEXon HIV Screen 4th Generation wRfx Non-Reactive Normal Non Reactive [facility] Comment on above: Result Comment: HIV Negative HIV-1/HIV-2 antibodies and HIV-1 p24 antigen were NOT detected. There is no laboratory evidence of HIV infection. Performed By: #### H IV12 ####[facility] [address] [place] [id number]. Donis Mancini RPR QUANTon 01-23-2022 Rapid Plasma Reagin, Quant Non-Reactive Normal NonRea<1:1 [facility] Comment on above: Result Comment: Plea Note: This test does not meet current guidelines for screening and diagnosis of syphilis. This test is intended for following treatment response in patients being treated for syphilis infection. To screen for syphilis infection, a reflex cascade that includes both RPR and a treponema-specific assay should be utilized, such as Treponema pallidum (Syphilis) Screening [place] (004635) or Rapid Plasma Reagin (RPR) Test With Reflex to Quantitative RPR and Confirmatory Treponema pallidum Antibodies (755964). Performed By: #### R PRQ ####[facility] [address] [place] [id number]. Donis Mancini RUBELLA AB IGGon 01-23-2022 Rubella Antibodies, IgG 1.60 index Normal Immune >0.99 [facility] Comment on above: Result Comment: Non- immune <0.90 Equivocal 0.90 - 0.99 Immune >0.99 Performed By: #### U AMIC #### [facility] [address] [address] [address] Donis Mancini CBC AUTO DIFFon 01-22-2022 BASO # 0.1 103/ul Normal 0.0-0.1 [facility] Comment on above: Performed By: #### U AMIC #### [facility] [address] [place] [address] Dr. Donis Mancini Basophils/100 WBC (Bld) 0.5 % Normal 0.2-2.0 [facility] Comment on above: Performed By: #### U AMIC #### [facility] [address] [address] [address] Donis Mancini EO # 0.6 103/ul Normal 0.0-0.7 [facility] Comment on above: Performed By: #### U AMIC #### [facility] [address] [place] [address] Dr. Donis Mancini Eosinophils/100 WBC (Bld) 5.1 % Normal 0.9-7.0 [facility] Comment on above: Performed By: #### U AMIC #### [facility] [address] [place] [address] Dr. Donis Mancini Erythrocyte distribution width (RBC) [Ratio] 12.0 % Normal 11.0-15.0 [facility] Comment on above: Performed By: #### U AMIC #### [facility] [address] [place] [address] Dr. Donis Mancini Hematocrit (Bld) [Volume fraction] 45.8 % Normal 36.0-48.0 [facility] Comment on above: Performed By: #### U AMIC #### [facility] [address] [place] [address] Dr. Donis Mancini Hemoglobin (Bld) [Mass/Vol] 15.3 g/dL Normal 12.0-16.0 [facility] Comment on above: Performed By: #### U AMIC #### [facility] [address] [place] [address] Dr. Donis Mancini IG # 0.03 10e3/ul Normal 0.00-0.03 [facility] Comment on above: Performed By: #### U AMIC #### [facility] [address] [place] [address] Dr. Donis Mancini IG % 0.3 % Normal 0.0-0.5 [facility] Comment on above: Performed By: #### U AMIC #### [facility] [address] [place] [address] Dr. Donis Mancini LYMPH # 1.7 103/ul Normal 1.2-3.8 [facility] Comment on above: Performed By: #### U AMIC #### [facility] [address] [place] [address] Dr. Donis Mancini Lymphocytes/100 WBC (Bld) 15.9 % Critically low 20.5-60.0 [facility] Comment on above: Performed By: #### U AMIC #### [facility] [address] [place] [address] Dr. Donis Mancini MANUAL DIFF REQ NO Normal [facility] Comment on above: Performed By: #### U AMIC #### [facility] [address] [place] [address] Dr. Donis Mancini MCH (RBC) [Entitic mass] 31.5 pg Normal 26.7-34.0 [facility] Comment on above: Performed By: #### U AMIC #### [facility] [address] [place] [address] Dr. Donis Mancini MCHC (RBC) [Mass/Vol] 33.4 g/dL Normal 29.9-35.2 [facility] Comment on above: Performed By: #### U AMIC #### [facility] [address] [place] [address] Dr. Donis Mancini MCV (RBC) [Entitic vol] 94.2 fL Normal 81.0-99.0 [facility] Comment on above: Performed By: #### U AMIC #### [facility] [address] [place] [address] Dr. Donis Mancini MONO # 0.6 103/ul Normal 0.3-0.8 [facility] Comment on above: Performed By: #### U AMIC #### [facility] [address] [place] [address] Dr. Donis Mancini Monocytes/100 WBC (Bld) 5.8 % Normal 1.7-12.0 [facility] Comment on above: Performed By: #### U AMIC #### [facility] [address] [place] [address] Dr. Donis Mancini NEUT # 7.8 103/ul Critically high 1.4-6.5 [facility] Comment on above: Performed By: #### U AMIC #### [facility] [address] [place] [address] Dr. Donis Mancini Neutrophils/100 WBC (Bld) 72.4 % Normal 43.0-75.0 [facility] Comment on above: Performed By: #### U AMIC #### [facility] [address] [address] [address] Donis Mancini Platelet mean volume (Bld) [Entitic vol] 9.9 fL Normal 9.5-13.5 [facility] Comment on above: Performed By: #### U AMIC #### [facility] [address] [address] [address] Donis Mancini PLT 281 103/ul Normal 150-450 [facility] Comment on above: Performed By: #### U AMIC #### [facility] [address] [place] [address] Dr. Donis Mancini RBC 4.86 106/ul Normal 4.20-5.40 [facility] Comment on above: Performed By: #### U AMIC #### [facility] [address] [place] [address] Dr. Donis Mancini WBC 10.8 103/ul Normal 4.0-11.0 [facility] Comment on above: Performed By: #### U AMIC #### [facility] [address] [place] [address] Dr. Donis Mancini CULTURE URINEon 01-22-2022 CULTURE URINE Culture Observations: LIGHT GROWTH OF MIXED GENITAL RAMBO. NO POTENTIAL PATHOGENS SEEN. Normal [facility] Comment on above: Performed By: #### U RCX #### [facility] [address] [place] [address] Dr. Donis Mancini GLYCOHEMOGLOBIN A1Con 2021 ADA RECOMMENDATION SEE BELOW Normal [facility] Comment on above: Result Comment: ADA RECOMMENDED LIMIT 4.0 - 6.0 ADA THERAPEUTIC TARGET < 7.0 ACTION SUGGESTED > 7.0 Performed By: #### A 1C ####[facility] [address] [place] [address]Dr. Donis Mancini Glucose [Mass/Vol] 100 mg/dL Normal [facility] Comment on above: Performed By: #### A 1C ####[facility] [address] [place], [place] [address]Cj. Donis Mancini HbA1c (Bld) [Mass fraction] 5.1 % Normal 4.5-6.2 [facility] Comment on above: Performed By: #### A 1C ####[facility] [address] [place], [place] [address]Yh. Donis Mancini SEAN BOX TEST PT SEND OUTo n 01-22-2022 SENT TO REF LAB 01/22/2022 Normal [facility] Comment on above: Performed By: #### N BOX ####[facility] [address] [place], [place] [address]Dl. Donis Mancini TYPE AND SCREENon 01-22-2022 TYPE AND SCREEN Negative Normal [facility] Comment on above: Performed By: #### T NS #### [facility] [address] [address] [address] Donis Mancini US PREG TVon 01-17-2022 [...] COCO STERN Date: 2022-01-17 09:34 Normal [facility] Provider Letteron 04-06-2021 Provider Letter April 06, 2021 Dear Vimal, We have been trying to reach you with no success. It is important that you return our call regarding your appointment upon receiving this letter. Also, at the time of your call, please provide us with your current information. Thank you for your prompt attention to this matter. Sincerely, [employer] [facility] [employer] [address] [place] [address] [facility] Ambulatory Clinical Summaryo n 03-10-2021 Ambulatory Clinical Summary {[id number]}CD:[id number] [facility] Ambulatory Clinical Summaryo n 03-05-2021 Ambulatory Clinical Summary {[id number]}CD:125642 [facility] Gynecology Phone Visit- Tele healthon [...] only communication with the patient located at [address] [place] [phone], with no one else. 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 CODING DATE: 12/18/2020 FINAL [facility] [place] [facility] DS[facility] STATUS: Home (Routine DC) PAYOR: [...] CphT Date Saved: 12/18/2020 12:44 pm Normal [facility] Physician Orderon 12-16-2020 Physician Order [id number] #1.00CD:127 Normal [facility] Rapid COVID Antigen ([facility])on 12-16-2020 Rapid COV Int NEG Ctl Pass Normal [facility] Comment on above: Performed By: #### 2 [id number] #### [facility] [address] [place] [address] Rapid COV Int POS Ctl Pass Normal [facility] Comment on above: Performed By: #### 2 [id number] #### [facility] [address] [place] [address] SARS-CoV-2 (COVID-19) RNA INESSA+probe Ql (Unsp spec) Detected Abnormal Not Detected [facility] Comment on above: Result Comment: Left a message for callback. 12/16/2020 11:42:47 EDT Results faxed to infection control. The [employer] Veritor? System for Rapid Detection of SARS-CoV-2 [...] For in vitro diagnostic use. In the [facility], only for use under an Emergency [...] or revoked sooner. Performed By: #### 2 [id number] #### [address] [place] [address] Employed in Healthcare [facility] Comment on above: Performed By: #### 2 [id number] #### [facility] [address] [place] [address] First Test Unknown Normal [facility] Comment on above: Performed By: #### 2 [id number] #### [facility] [address] [place] [address] Hospitalized? NO Normal [facility] Comment on above: Performed By: #### 2 [id number] #### [facility] [address] [place] [address] ICU NO Normal [facility] Comment on above: Performed By: #### 2 [id number] #### [facility] [address] [place] [address] ? Unknown Normal [facility] Comment on above: Performed By: #### 2 [id number] #### [facility] [address] [place] [address] [facility] Unknown Normal [facility] Comment on above: Performed By: #### 2 [id number] #### [facility] [address] [place] [address] Symptomatic as defined by CDC YES Normal [facility] Comment on above: Performed By: #### 2 [id number] #### [facility] [address] [place] [address] [facility] Clinical Summary {[id number]}CD:175150 Normal [facility] Vital Signs Date Time Vital Sign Value Performing Clinician Facility 06-12-2025 15:-040 Body mass index (BMI) [Ratio] 31.96 kg/m2 Rossana BISWAS Work Phone: [facility] 06-12-2025 15:22040 Body weight 81.83 kg Rossana BISWAS Work Phone: [facility] 06-12-2025 15:22-040 Diastolic blood pressure 90 mm[Hg] Rossana BISWAS Work Phone: [facility] 06-12-2025 15:22-0400 Systolic blood pressure 144 mm[Hg] Rossana Ramos PA Work Phone: [facility] 05-28-2025 10:48-0400 Body mass index (BMI) [Ratio] 32.06 kg/m2 Jose Michael DO Work Phone: [facility] 05-28-2025 10:48-0400 Body weight 82.1 kg Jose Michael DO Work Phone: [facility] 05-28-2025 10:48-0400 Diastolic blood pressure 80 mm[Hg] Jose Michael DO Work Phone: [facility] 05-28-2025 10:48-0400 Systolic blood pressure 136 mm[Hg] Jose Michael DO Work Phone: [facility] 05-22-2025 15:02-0400 Body mass index (BMI) [Ratio] 31.49 kg/m2 Jose Michael DO Work Phone: [facility] 05-22-2025 15:02-0400 Body weight 80.63 kg Jose Michael DO Work Phone: [facility] 05-22-2025 15:02-0400 Diastolic blood pressure 92 mm[Hg] Jose Michael DO Work Phone: [facility] 05-22-2025 15:02-0400 Systolic blood pressure 138 mm[Hg] Jose Michael DO Work Phone: [facility] 05-14-2025 14:59-0400 Body mass index (BMI) [Ratio] 31.35 kg/m2 Jose Michael DO Work Phone: [facility] 05-14-2025 14:59-0400 Body weight 80.29 kg Jose Michael DO Work Phone: [facility] 05-14-2025 14:59-0400 Diastolic blood pressure 90 mm[Hg] Jose Michael DO Work Phone: [facility] 05-14-2025 14:59-0400 Systolic blood pressure 140 mm[Hg] Jose Michael DO Work Phone: [facility] 05-13-2025 16:11-0400 Body weight 79.83 kg Marjorie Rico RN Work Phone: [facility] 04-30-2025 11:52-0400 Body mass index (BMI) [Ratio] 31 kg/m2 Rossana Antrim PA Work Phone: [facility] 04-30-2025 11:52-0400 Body weight 79.38 kg Rossana Rachel PA Work Phone: [facility] 04-30-2025 11:52-0400 Diastolic blood pressure 94 mm[Hg] Rossana Antrim PA Work Phone: [facility] 04-30-2025 11:52-0400 Systolic blood pressure 140 mm[Hg] Rossana Antrim PA Work Phone: [facility] 04-11-2025 15:38-0400 Body mass index (BMI) [Ratio] 30.2 kg/m2 Rossana Rachel PA Work Phone: [facility] 04-11-2025 15:38-0400 Body weight 77.34 kg Rossana Antrim PA Work Phone: [facility] 04-11-2025 15:38-0400 Diastolic blood pressure 100 mm[Hg] Rossana Antrim PA Work Phone: [facility] 04-11-2025 15:38-0400 Systolic blood pressure 142 mm[Hg] Rossana Rachel PA Work Phone: [facility] 03-14-2025 11:36-0400 Body mass index (BMI) [Ratio] 29.23 kg/m2 Jose Michael DO Work Phone: [facility] 03-14-2025 11:36-0400 Body weight 74.84 kg Jose Michael DO Work Phone: [facility] 03-14-2025 11:36-0400 Diastolic blood pressure 76 mm[Hg] Jose Michael DO Work Phone: [facility] 03-14-2025 11:36-0400 Systolic blood pressure 112 mm[Hg] Jose Michael DO Work Phone: [facility] 02-20-2025 16:08-0400 Body mass index (BMI) [Ratio] 28.83 kg/m2 Rossana Rachel PA Work Phone: [facility] 02-20-2025 16:08-0400 Body weight 73.82 kg Rossana Antrim PA Work Phone: [facility] 02-20-2025 16:08-0400 Diastolic blood pressure 82 mm[Hg] Rossana Rachel PA Work Phone: [facility] 02-20-2025 16:08-0400 Systolic blood pressure 110 mm[Hg] Rossana Rachel PA Work Phone: [facility] 01-14-2025 15:42-0400 Body mass index (BMI) [Ratio] 27.3 kg/m2 Jose Michael DO Work Phone: [facility] 01-14-2025 15:42-0400 Body weight 69.91 kg Jose Michael DO Work Phone: [facility] 01-14-2025 15:42-0400 Diastolic blood pressure 70 mm[Hg] Jose Michael DO Work Phone: [facility] 01-14-2025 15:42-0400 Systolic blood pressure 120 mm[Hg] Jose Michael DO Work Phone: [facility] 08-20-2024 10:55-0500 Body mass index (BMI) [Ratio] 25.93 kg/m2 Rossana Rachel PA Work Phone: [facility] 08-20-2024 10:55-0500 Body weight 66.41 kg Rossana Antrim PA Work Phone: [facility] 08-20-2024 10:55-0500 Diastolic blood pressure 70 mm[Hg] Rossana Rachel PA Work Phone: [facility] 08-20-2024 10:55-0500 Systolic blood pressure 120 mm[Hg] Rossana Ramos PA Work Phone: [facility] 08-06-2024 09:38-0500 Body mass index (BMI) [Ratio] 25.47 kg/m2 Jose Michael DO Work Phone: [facility] 08-06-2024 09:38-0500 Body weight 65.23 kg Jose Michael DO Work Phone: [facility] 08-06-2024 09:38-0500 Diastolic blood pressure 70 mm[Hg] Jose Michael DO Work Phone: [facility] 08-06-2024 09:38-0500 Systolic blood pressure 120 mm[Hg] Jose Michael DO Work Phone: [facility] 06-29-2024 09:12-0400 Body mass index (BMI) [Ratio] 24.58 kg/m2 Nom Nurse [facility] 06-29-2024 09:12-0400 Body weight 62.94 kg [facility] Nurse [facility] 06-29-2024 09:12-0400 Diastolic blood pressure 72 mm[Hg] [facility] Nurse [facility] 06-29-2024 09:12-0400 Systolic blood pressure 122 mm[Hg] [facility] Nurse [facility] 12-26-2022 13:45-0400 Body height 160.02 cm Jennifer Huston Other [facility] Other 12-26-2022 13:45-0400 Body mass index (BMI) [Ratio] 27.45 kg/m2 Jennifer Huston Other [facility] Other 12-26-2022 13:45-0400 Body temperature 97 [degF] Jennifer Huston Other [facility] Other 12-26-2022 13:45-0400 Body weight 70.31 kg Jennifer Huston Other [facility] Other 12-26-2022 13:45-0400 Diastolic blood pressure 89 mm[Hg] Jennifer Huston Other [facility] Other 12-26-2022 13:45-0400 Respiratory rate 18 /min Jennifer Huston Other [facility] Other 12-26-2022 13:45-0400 SaO2% (BldA) [Mass fraction] 100 % Jennifer Huston Other [facility] Other 12-26-2022 13:45-0400 Systolic blood pressure 135 mm[Hg] Jennifer Huston Other [facility] Other Encounters Encounter Date Encounter Type Care Provider Facility Start: 06-12-2025 End: 06-12-2025 ambulatory ROSSANA RAMOS Not Available Start: 06-12-2025 End: 06-12-2025 flow sheet Rossana BISWAS Work Phone: [facility] Comment on above: Third trimester preg alysa ([facility]); 34 weeks gestation of ([facility]) Start: 06-12-2025 End: 06-12-2025 Bamboo flowsheet Rossana BISWAS Work Phone: [facility] Start: 06-12-2025 End: 06-12-2025 Bamboo flowsheet Rossana BISWAS Work Phone: [facility] Start: 06-11-2025 End: 06-11-2025 ambulatory [facility] Start: 06-08-2025 End: 06-08-2025 Clinisync Result Encounter Rossana BISWAS Work Phone: [facility] External Department Unsolicited Start: 06-08-2025 End: 06-08-2025 Clinisync Result Encounter Rossana BISWAS Work Phone: [facility] Unsolicited Start: 06-05-2025 End: 06-05-2025 Telephone encounter Xenia London RD Work Phone: [facility]- Medicine at [facility] Start: 06-04-2025 End: 06-04-2025 Office consultation new/estab patient 60 min Manas Martin MD Work Phone: [facility]- [facility] at [facility] Comment on above: Poor growth af fecting management of mother in third trimester, single or unspecified fetus (Primary Dx) Start: 06-04-2025 End: 06-04-2025 Orders Only Marii Yoo RN Maternal- Medic ine at [facility] Comment on above: Poor growth af fecting [...] Provider External [facility] at [facility] Start: 05-28-2025 End: 05-28-2025 Bamboo flowsheet Jose Michael DO Work Phone: [facility] Start: 05-28-2025 End: 05-28-2025 Bamboo flowsheet Jose Michael DO Work Phone: [facility] Start: 05-28-2025 End: 05-28-2025 Telephone encounter Chante TEJEDA Work Phone: [facility] Start: 05-28-2025 End: 05-28-2025 ambulatory JOSE MICHAEL Not Available Start: 05-28-2025 End: 05-28-2025 flow sheet Jose Michael DO Work Phone: [facility] Comment on above: Third trimester preg alysa ([facility]); 32 weeks gestation of ([facility]); Gestational diabetes mellitus (GDM), antepartum, gestational diabetes method of control unspecified ([facility]); induced hypertension, antepartum ([facility]) Start: 05-25-2025 End: 05-25-2025 Clinisync Result Encounter Rossana BISWAS Work Phone: [facility] Unsolicited Start: 05-25-2025 End: 05-25-2025 Clinisync Result Encounter Rossana BISWAS Work Phone: [facility] Unsolicited Start: 05-22-2025 End: 05-22-2025 ambulatory JOSE MICHAEL Not Available Start: 05-22-2025 End: 05-22-2025 flow sheet Jose Michael DO Work Phone: [facility] Comment on above: Third trimester preg alysa ([facility]); 31 weeks gestation of ([facility]) Start: 05-22-2025 End: 05-22-2025 Bamboo flowsheet Jose Michael DO Work Phone: [facility] Start: 05-22-2025 End: 05-22-2025 Bamboo flowsheet Jose Michael DO Work Phone: [facility] [place] Start: 05-21-2025 End: 05-21-2025 Telephone encounter Chante TEJEDA Work Phone: [facility]- [facility] Start: 05-20-2025 End: 05-20-2025 Clinisync Result Encounter [...] Unsolicited Start: 05-14-2025 End: 05-14-2025 ambulatory JOSE CHENZIO Not Available Start: 05-14-2025 End: 05-14-2025 flow sheet Jose Michael DO Work Phone: [facility] Comment on above: Third trimester preg alysa ([facility]); 30 weeks gestation of ([facility]); induced hypertension, antepartum ([facility]) Start: 05-14-2025 End: 05-14-2025 Bamboo flowsheet Jose Michael DO Work Phone: [facility] Start: 05-14-2025 End: 05-14-2025 Bamboo flowsheet Jose Michael DO Work Phone: [facility] Start: 05-13-2025 End: 05-13-2025 ambulatory Marjorie Rico RN Work Phone: [facility]- Medicine at [facility] Comment on above: Gestational diabetes mellitus (GDM) in third trimester, gestational diabetes method of control unspecified Start: 05-11-2025 End: 05-11-2025 Clinisync Result Encounter Rossana BISWAS Work Phone: [facility] Unsolicited Start: 05-11-2025 End: 05-11-2025 Clinisync Result Encounter Rossana BISWAS Work Phone: [facility] Unsolicited Start: 05-10-2025 End: 05-10-2025 Chart abstracting Scanning Provider External [facility] Start: 05-06-2025 End: 05-06-2025 Clinisync Result Encounter Rossana BISWAS Work Phone: [facility] Unsolicited Start: 05-06-2025 End: 05-06-2025 Clinisync Result Encounter Rossana BISWAS Work Phone: [facility] Unsolicited Start: 05-04-2025 End: 05-04-2025 Clinisync Result Encounter Rossana Ramos PA Work Phone: [facility] Unsolicited Start: 05-04-2025 End: 05-04-2025 Clinisync Result Encounter Rossana BISWAS Work Phone: [facility] Unsolicited Start: 05-04-2025 End: 05-08-2025 Telephone encounter Jose Rodriguez DO Work Phone: [facility] Start: 04-30-2025 End: 04-30-2025 Bamboo flowsheet Rossana Ramos TRUE Work Phone: [facility] Start: 04-30-2025 End: 04-30-2025 Bamboo flowsheet Rossana Ramos PA Work Phone: [facility] Start: 04-30-2025 End: 04-30-2025 ambulatory ROSSANA RAMOS Not Available Start: 04-30-2025 End: 04-30-2025 Patient encounter status Rossana Ramos PA Work Phone: [facility] Work Phone: Start: 04-30-2025 End: 04-30-2025 flow sheet Rossana Ramos TRUE Work Phone: [facility] Comment on above: BP check; -induced [...] sheet Rossana BISWAS Work Phone: [facility] Comment on above: Second trimester pre gnancy ([facility]); 27 weeks gestation of ([facility]); induced hypertension, antepartum ([facility]) Start: 04-25-2025 End: 04-25-2025 ambulatory ROSSANA RACHEL Not Available Start: 04-25-2025 End: 04-25-2025 Bamboo flowsheet Rossana BISWAS Work Phone: [facility] Start: 04-25-2025 End: 04-25-2025 Bamboo flowsheet Rossana BISWAS Work Phone: [facility] Start: 04-11-2025 End: 04-11-2025 ambulatory ROSSANA RACHEL Not Available Start: 04-11-2025 End: 04-11-2025 flow sheet Rossana BISWAS Work Phone: [facility] Comment on above: Second trimester pre gnancy ([facility]); 25 weeks gestation of ([facility]); Diabetes mellitus screening; Elevated BP without [...] Comment on above: Second trimester pre gnancy ([facility]); 21 weeks gestation of ([facility]) Start: 03-08-2025 End: 03-08-2025 Clinisync Result Encounter Jose Michael DO Work Phone: [facility] External Department Unsolicited Start: 03-08-2025 End: 03-08-2025 Clinisync Result Encounter Jose Michael DO Work Phone: [facility] External Department Unsolicited Start: 02-20-2025 End: 02-20-2025 Patient encounter procedure Rossana BISWAS Work Phone: [facility] Start: 02-20-2025 End: 02-20-2025 [...] 02-20-2025 End: 02-22-2025 External Result Encounter Rossana Ramos PA Work Phone: [facility] External Department Unsolicited [...] OB Start: 08-20-2024 End: 08-20-2024 ambulatory ROSSANA RACHEL Not Available Start: 08-20-2024 End: 08-20-2024 Postop [...] 08-10-2024 End: 08-10-2024 ambulatory PHYSICIAN NO [facility] Work Phone: Start: 08-10-2024 End: 08-10-2024 Departed Referred PHYSICIAN NO [facility] Start: 08-06-2024 End: 08-06-2024 Bamboo flowsheet [...] 12-26-2022 End: 12-26-2022 ambulatory Jennifer Huston Other [facility] Other Start: 12-26-2022 End: 12-26-2022 Patient encounter procedure [facility] Jennifer Huston Work Phone: [facility] [place] Work [...] Start: 12-26-2022 Plain X-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 hand [facility] Jennifer Huston Work Phone: Start: 11-02-2022 Cytp [...] malign ant neoplasm of cervix Pap Smear [facility] Start: 06-04-2026 End: 06-04-2026 US MFM with or without consult US MFM with or without consult Imaging Routine Poor growth affecting management of mother in third trimester, single or unspecified fetus Gestational diabetes mellitus (GDM) in third trimester, gestational diabetes method of control unspecified Expected: 06/04/2026 (Approximate), Expires: 06/04/2026 [facility] Work Phone: Comment on above: Expected: 06/04/2026 (Approximate), Expires: 06/04/2026 Start: 06-24-2025 End: 06-24-2025 Patient encounter procedure 06/24/2025 2:15 PM EDT Appointment Maternal Medicine [address] [place] [address] [facility]aternal [facility] [place] Start: 06-19-2025 End: 06-19-2025 Patient encounter procedure 06/19/2025 2:30 PM EDT Routine [facility] [address] [place] [phone] Jose Rodriguez DO [address] [place] [address] [facility] Start: 06-18-2025 End: 06-18-2025 Patient encounter procedure 06/18/2025 3:30 PM EDT Appointment [facility] US Imaging [address] [place] [address] [facility] US Imaging Start: 06-12-2025 End: 06-12-2025 Patient encounter procedure 06/12/2025 3:00 PM EDT Routine [facility] [address] [place] [phone] Rossana Ramos PA [address] [place] [address] [facility] Start: 06-11-2025 End: 06-11-2025 Patient encounter procedure 06/11/2025 8:00 AM EDT Appointment [facility] US Imaging [address] [place] [phone] [facility] US Imaging Start: 06-04-2025 End: 06-04-2025 Patient encounter procedure 06/04/2025 1:00 PM EDT Appointment [facility] - Ultrasound [address] [place] [phone] Jose Rodriguez R, DO [address] [place] [address] [facility] - Ultrasound Start: 06-04-2025 Subsequent hospital visit by physician 06/04/2025 1:00 PM EDT Hospital Encounter [facility] - Ultrasound [address] [place] [phone] Jose Rodriguez R, DO [address] [place] [address] [facility] - Ultrasound Start: 05-28-2025 End: 05-28-2025 Patient encounter procedure 05/28/2025 10:30 AM EDT Routine [facility] [address] [place] [address] Jose Rodriguez, DO [address] [place] [address] [facility] Start: 05-27-2025 Influenza vaccination N [facility] Start: 05-22-2025 End: 05-22-2025 Patient encounter procedure 05/22/2025 2:40 PM EDT Routine [facility] [address] [place] [phone] Jose Rodriguez, DO [address] [place] [address] [facility] Start: 05-14-2025 End: 05-14-2025 Patient encounter procedure 05/14/2025 2:40 PM EDT Routine [facility] [address] [place] [phone] Jose Rodriguez, DO [address] [place] [address] [facility] Start: 05-14-2025 End: 05-14-2026 Alanine aminotransferase [Enzymatic activity/volume] in Serum or Plasma ALT Lab Routine induced hypertension, antepartum ([facility]) Expected: 05/14/2025 (Approximate), Expires: 05/14/2026 [facility] Comment on above: Expected: 05/14/2025 (Approximate), Expires: 05/14/2026 Start: 05-14-2025 End: 05-14-2026 Aspartate aminotransferase [Enzymatic activity/volume] in Serum or Plasma AST Lab Routine induced hypertension, antepartum ([facility]) Expected: 05/14/2025 (Approximate), Expires: 05/14/2026 [facility] Comment on above: Expected: 05/14/2025 (Approximate), Expires: 05/14/2026 Start: 05-14-2025 End: 05-14-2026 CBC W Auto Differential panel - Blood CBC and differential Lab Routine induced hypertension, antepartum ([facility]) Expected: 05/14/2025 (Approximate), Expires: 05/14/2026 [facility] Comment on above: Expected: 05/14/2025 (Approximate), Expires: 05/14/2026 Start: 05-14-2025 End: 05-14-2026 Creatinine [Mass/volume] in Serum or Plasma Creatinine Lab Routine induced hypertension, antepartum ([facility]) Expected: 05/14/2025 (Approximate), Expires: 05/14/2026 [facility] Work Phone: Comment on above: Expected: 05/14/2025 (Approximate), Expires: 05/14/2026 Start: 05-14-2025 End: 05-14-2026 Lactate dehydrogenase [Enzymatic activity/volume] in Serum or Plasma by Lactate to pyruvate reaction Lactate dehydrogenase Lab Routine induced hypertension, antepartum ([facility]) Expected: 05/14/2025, Expires: 05/14/2026 [facility] Comment on above: Expected: 05/14/2025 , Expires: 05/14/2026 Start: 05-14-2025 End: 05-14-2026 Protein, urine, 24 hour Protein, urine, 24 hour Lab Routine induced hypertension, antepartum ([facility]) Expected: 05/14/2025 (Approximate), Expires: 05/14/2026 [facility] Comment on above: Expected: 05/14/2025 (Approximate), Expires: 05/14/2026 Start: 05-14-2025 End: 05-14-2026 Pt and ptt Pt and ptt Lab Routine induced hypertension, antepartum ([facility]) Expected: 05/14/2025, Expires: 05/14/2026 [facility] Comment on above: Expected: 05/14/2025 , Expires: 05/14/2026 Start: 05-14-2025 End: 05-14-2026 Urate [Mass/volume] in Serum or Plasma Uric acid Lab Routine induced hypertension, antepartum ([facility]) Expected: 05/14/2025 (Approximate), Expires: 05/14/2026 [facility] Comment on above: Expected: 05/14/2025 (Approximate), Expires: 05/14/2026 Start: 05-14-2025 End: 05-14-2026 Urea nitrogen [Mass/volume] in Serum or Plasma BUN Lab Routine induced hypertension, antepartum ([facility]) Expected: 05/14/2025, Expires: 05/14/2026 [facility] Comment on above: Expected: 05/14/2025 , Expires: 05/14/2026 Start: 05-13-2025 End: 05-13-2025 ambulatory 05/13/2025 1:30 PM EDT Support Visit Maternal- Medicine at [facility] [address] [place] [address] Marjorie Rico RN [address] [place] [address] Xenia London, RD [address] [facility] [address] [place] [address] Maternal- Medicine at [facility] Start: 04-30-2025 End: 10-31-2025 US biophysical profile w non stress test US biophysical profile w non stress test Imaging Routine -induced hypertension in third trimester ([facility]) Gestational diabetes mellitus (GDM) in third trimester, gestational diabetes method of control unspecified ([facility]) Expected: 04/30/2025 (Approximate), Expires: 10/31/2025 [facility] Work Phone: Comment on above: Expected: 04/30/2025 (Approximate), Expires: 10/31/2025 Start: 04-30-2025 End: 08-30-2025 US for US OB follow up transabdominal approach Imaging Routine -induced hypertension in third trimester ([facility]) Gestational diabetes mellitus (GDM) in third trimester, gestational diabetes method of control unspecified ([facility]) Expected: 04/30/2025, Expires: 08/30/2025 [facility] Comment on above: Expected: 04/30/2025 , Expires: 08/30/2025 Start: 04-30-2025 End: 04-30-2025 Patient encounter procedure 04/30/2025 10:50 AM EDT Routine [facility] [address] [place] [phone] Rossana Ramos PA [address] [place] [address] [facility] Start: 04-25-2025 End: 04-25-2025 Patient encounter procedure [facility] Comment on above: Arrived Start: 04-25-2025 End: 04-25-2026 Alanine aminotransferase [Enzymatic activity/volume] in Serum or Plasma ALT Lab Routine induced hypertension, antepartum ([facility]) Expected: 04/25/2025 (Approximate), Expires: 04/25/2026 [facility] Comment on above: Expected: 04/25/2025 (Approximate), Expires: 04/25/2026 Start: 04-25-2025 End: 04-25-2026 Aspartate aminotransferase [Enzymatic activity/volume] in Serum or Plasma AST Lab Routine induced hypertension, antepartum ([facility]) Expected: 04/25/2025 (Approximate), Expires: 04/25/2026 [facility] Comment on above: Expected: 04/25/2025 (Approximate), Expires: 04/25/2026 Start: 04-25-2025 End: 04-25-2026 CBC W Auto Differential panel - Blood CBC and differential Lab Routine induced hypertension, antepartum ([facility]) Expected: 04/25/2025 (Approximate), Expires: 04/25/2026 [facility] Comment on above: Expected: 04/25/2025 (Approximate), Expires: 04/25/2026 Start: 04-25-2025 End: 04-25-2026 Creatinine [Mass/volume] in Serum or Plasma Creatinine Lab Routine induced hypertension, antepartum ([facility]) Expected: 04/25/2025 (Approximate), Expires: 04/25/2026 [facility] Work Phone: Comment on above: Expected: 04/25/2025 (Approximate), Expires: 04/25/2026 Start: 04-25-2025 End: 04-25-2026 Lactate dehydrogenase [Enzymatic activity/volume] in Serum or Plasma by Lactate to pyruvate reaction Lactate dehydrogenase Lab Routine induced hypertension, antepartum ([facility]) Expected: 04/25/2025, Expires: 04/25/2026 [facility] Comment on above: Expected: 04/25/2025 , Expires: 04/25/2026 Start: 04-25-2025 End: 04-25-2026 Protein, urine, 24 hour Protein, urine, 24 hour Lab Routine induced hypertension, antepartum ([facility]) Expected: 04/25/2025 (Approximate), Expires: 04/25/2026 [facility] Comment on above: Expected: 04/25/2025 (Approximate), Expires: 04/25/2026 Start: 04-25-2025 End: 04-25-2026 Pt and ptt Pt and ptt Lab Routine induced hypertension, antepartum ([facility]) Expected: 04/25/2025, Expires: 04/25/2026 [facility] Comment on above: Expected: 04/25/2025 , Expires: 04/25/2026 Start: 04-25-2025 End: 04-25-2026 Urate [Mass/volume] in Serum or Plasma Uric acid Lab Routine induced hypertension, antepartum ([facility]) Expected: 04/25/2025 (Approximate), Expires: 04/25/2026 [facility] Comment on above: Expected: 04/25/2025 (Approximate), Expires: 04/25/2026 Start: 04-25-2025 End: 04-25-2026 Urea nitrogen [Mass/volume] in Serum or Plasma BUN Lab Routine induced hypertension, antepartum ([facility]) Expected: 04/25/2025, Expires: 04/25/2026 [facility] Comment on above: Expected: 04/25/2025 , Expires: 04/25/2026 Start: 04-11-2025 End: 04-11-2025 Patient encounter procedure 04/11/2025 3:30 PM EDT Routine [facility] [address] [place] [address] Rossana Ramos PA [address] [place] [address] [facility] Start: 04-11-2025 End: 04-11-2026 [...] mellitus screening Expected: 04/11/2025 (Approximate), Expires: 04/11/2026 [facility] Comment on above: Expected: 04/11/2025 (Approximate), Expires: 04/11/2026 Start: 03-14-2025 End: 03-14-2025 Patient encounter procedure 03/14/2025 10:50 AM EDT Routine [facility] [address] [place] [phone] Jose Rodriguez DO [address] [place] [address] [facility] Start: 02-20-2025 End: 02-20-2025 Patient encounter procedure [facility] Comment on above: Arrived Start: 02-20-2025 End: 04-22-2025 Alpha fetoprotein, maternal Alpha fetoprotein, maternal Lab Routine 18 weeks gestation of Expected: 02/20/2025 (Approximate), Expires: 04/22/2025 [facility] Comment on above: Expected: 02/20/2025 (Approximate), Expires: 04/22/2025 Start: 02-20-2025 End: 05-23-2025 US for US OB 14+ weeks anatomy scan Imaging Routine Screening, , for anatomic survey Expected: 02/20/2025, Expires: 05/23/2025 [facility] Comment on above: Expected: 02/20/2025 , Expires: 05/23/2025 Start: 01-14-2025 End: 01-14-2025 Patient encounter procedure [facility] Comment on above: Arrived Start: 12-14-2024 End: 12-14-2024 ambulatory 12/14/2024 9:00 AM EDT Initial [facility] [address] [place] [phone] [facility] Start: 12-14-2024 End: 12-14-2024 Professional / ancillary services management 12/14/2024 8:30 AM EDT Ancillary Procedure [facility] [address] [place] [phone] [facility] Start: 08-20-2024 End: 08-20-2024 Patient encounter procedure 08/20/2024 10:20 AM EST Office Visit [facility] [address] [place] [phone] Rossana Raoms PA [address] [place] [address] [facility] Start: 08-06-2024 End: 08-06-2024 Patient encounter procedure 08/06/2024 9:10 AM EST Routine [facility] [address] [place] [phone] Jose Rodriguez DO [address] [place] [address] [facility] Start: 06-29-2024 End: 06-29-2025 ABO/Rh ABO/Rh Lab Routine Missed menses , unspecified gestational age Expected: 06/29/2024 (Approximate), Expires: 06/29/2025 [facility] Comment on above: Expected: 06/29/2024 (Approximate), Expires: 06/29/2025 Start: 06-29-2024 End: 06-29-2025 Blood type and Indirect antibody screen panel - Blood Type and screen Lab Routine Missed menses , unspecified gestational age Expected: 06/29/2024 (Approximate), Expires: 06/29/2025 [facility] Work Phone: Comment on above: Expected: 06/29/2024 (Approximate), Expires: 06/29/2025 Start: 06-29-2024 End: 06-29-2025 Drugs of abuse panel - Urine by Screen method Rapid drug screen, urine Lab Routine , unspecified gestational age Encounter for supervision of normal first in first trimester Expected: 06/29/2024 (Approximate), Expires: 06/29/2025 [facility] Comment on above: Expected: 06/29/2024 (Approximate), Expires: 06/29/2025 Start: 06-29-2024 End: 06-29-2025 US Pelvis transvaginal US OB transvaginal Imaging Routine Missed menses Expected: 06/29/2024 (Approximate), Expires: 06/29/2025 [facility] Comment on above: Expected: 06/29/2024 (Approximate), Expires: 06/29/2025 Start: 05-27-2024 Influenza vaccination Influenza Vacc ine (#1) [facility] Start: 05-01-2024 DTaP,Tdap and Td Vac cines (7 - Td or Tdap) DTaP,Tdap and Td Vaccines (7 - Td or Tdap) [facility] Start: 2020 DTaP,Tdap and Td Vac cines (1 - Tdap) DTaP,Tdap and Td Vaccines (1 - Tdap) [facility] Start: 2019 Adult BMI Screening Adult BMI Screen ing [facility] Start: 2013 Depression Screening Depression Scre ening [facility] Start: 2013 Tobacco Screening Tobacco Screening [facility] Start: 2001 Screening for Chlamy jd trachomatis Chlamydia Screening [facility] Bacteria identified in Urine by Culture Urine culture Microbiology Routine Missed menses Ordered: 06/29/2024 [facility] Comment on above: Ordered: 06/29/2024 Bacteria identified in Urine by Culture Urine culture Microbiology Routine Urinary frequency Ordered: 02/20/2025 [facility] Comment on above: Ordered: 02/20/2025 CBC W Auto Different ial panel - Blood CBC and differential Lab Routine Missed menses , unspecified gestational age Ordered: 06/29/2024 [facility] Comment on above: Ordered: 06/29/2024 CHLAMYDIA TRACHOMATI S (GENITO/STI) CHLAMYDIA TRACHOMATIS (GENITO/STI) Lab Routine STD exposure Ordered: 02/20/2025 [facility] Comment on above: Ordered: 02/20/2025 Cytology Cervical or vaginal smear or scraping study Pap Smear Pathology and Cytology Routine Well woman exam with routine gynecological exam Ordered: 02/20/2025 [facility] Comment on above: Ordered: 02/20/2025 Hemoglobin A1c/Hemoglobin.total in Blood Hemoglobin A1c Lab Routine Missed menses , unspecified gestational age Ordered: 06/29/2024 [facility] Comment on above: Ordered: 06/29/2024 Hepatitis B virus beltran rface Ag [Presence] in Serum or Plasma by Immunoassay Hepatitis B surface antigen Lab Routine Missed menses , unspecified gestational age Ordered: 06/29/2024 [facility] Comment on above: Ordered: 06/29/2024 Hepatitis C virus Ab [Presence] in Serum or Plasma by Immunoassay Hepatitis C antibody Lab Routine Missed menses , unspecified gestational age Ordered: 06/29/2024 [facility] Comment on above: Ordered: 06/29/2024 HIV-1/HIV-2 antigen/antibody combination immunoassay HIV-1 and HIV-2 antibodies Lab Routine Missed menses , unspecified gestational age Ordered: 06/29/2024 [facility] Comment on above: Ordered: 06/29/2024 Neisseria gonorrhoea e DNA [Presence] in Unspecified specimen by INESSA with probe detection Neisseria gonorrhea DNA probe, direct Lab Routine STD exposure Ordered: 02/20/2025 [facility] Comment on above: Ordered: 02/20/2025 Reagin Ab [Presence] in Serum by RPR RPR Lab Routine Missed menses , unspecified gestational age Ordered: 06/29/2024 [facility] Comment on above: Ordered: 06/29/2024 Rubella antibody, IgG Rubella an tibody, IgG Lab Routine Missed menses , unspecified gestational age Ordered: 06/29/2024 [facility] Comment on above: Ordered: 06/29/2024 SURESWAB(R) ADVANCED VAGINITIS PLUS, TMA SURESWAB(R) ADVANCED VAGINITIS PLUS, TMA Pathology and Cytology Routine STD exposure Ordered: 02/20/2025 [facility] Work Phone: Comment on above: Ordered: 02/20/2025 Immunizations Immunization Date Immunization Notes Care Provider Ryne abrams 08-28-2002 influenza virus vacc ine, unspecified formulation Noms Nurse [facility] Payers Date Payer Category Payer Medicaid HMO [id number] 2024 Blue Cross [employer] Managed Care - PPO [id number] 2023 Medicaid [employer] [place] [id number] 2023-Present [address] [place] [address] [id number] 2023 Medicaid (Managed Care) [facility] MEDICAID [id number] 2021 Blue Cross Blue Shield 1.2.8 [id number] 2021 Unknown BCBS BCBS [id number] 2021-Present [phone] [address] [place] [address] [id number]. [id number] 2001 Unknown [id number] 2.16.840.1.972288.3.579.2. 593 2001 Unknown [id number] 2.16.840.1.906936.3.579.2. 593 2001 Unknown [id number] 2.16.840.1.036566.3.579.2. 593 2001 Unknown [id number] 2.16.840.1.140147.3.579.2. 593 2001 Unknown [id number] 2.16.840.1.466741.3.579.2. 593 2001 Unknown [id number] 2.16.840.1.366279.3.579.2. 593 2001 Unknown [id number] 2.16.840.1.163428.3.579.2. 593 2001 Unknown [id number] 2.16.840.1.449179.3.579.2. 593 2001 Unknown [id number] 2.16.840.1.327632.3.579.2. 593 2001 Unknown [id number] 2.16.840.1.447349.3.579.2. 593 2001 Unknown [id number] 2.16.840.1.608212.3.579.2. 593 2001 Unknown [id number] 2.16.840.1.663035.3.579.2. 593 2001 Unknown [id number] 2.16.840.1.556921.3.579.2. 593 2001 Unknown [id number] 2.16.840.1.903217.3.579.2. 593 2001 Unknown [id number] 2.16.840.1.858522.3.579.2. 593 2001 Unknown [id number] 2.16.840.1.515583.3.579.2. 593 2001 Unknown [id number] 2.16.840.1.879027.3.579.2. 593 2001 Unknown [id number] 2.16.840.1.232046.3.579.2. 593 2001 Unknown [id number] 2.16.840.1.884681.3.579.2. 593 2001 Unknown [id number] 2.16.840.1.507537.3.579.2. 593 2001 Unknown [id number] 2.16840.1.539803.3.579.2. 593 2001 Unknown [id number] 2.16840.1.116435.3.579.2. 1286 2001 Unknown [id number] 2.16840.1.380794.3.579.2. 128 2001 Unknown [id number] 2.16840.1.170247.3.579.2. 1286 2001 Unknown [id number] 2.16840.1.751746.3.579.2. 1286 2001 Unknown [id number] 2.16840.1.395520.3.579.2. 1259 2001 Unknown [id number] 2.16840.1.738523.3.579.2. 1259 2001 Unknown [id number] 2.16840.1.683047.3.579.2. 1259 2001 Unknown [id number] 2.16840.1.201192.3.579.2. 1259 2001 Unknown [id number] 2.16840.1.243228.3.579.2. 1259 2001 Unknown [id number] 2.16840.1.316449.3.579.2. 1259 2001 Unknown [id number] 2.16840.1.470727.3.579.2. 1259 2001 Unknown [id number] 2.16.840.1.793064.3.579.2. 9 2001 Unknown [id number] 2.16.840.1.219708.3.579.2. 9 2001 Unknown [id number] 2.16.840.1.229993.3.579.2. 1258 2001 Unknown [id number] 2.16.840.1.359497.3.579.2. 9 2001 Unknown [id number] 2.16.840.1.848607.3.579.2. 1258 2001 Unknown [id number] 2.16.840.1.744502.3.579.2. 9 2001 Unknown [id number] 2.16.840.1.876396.3.579.2. 1258 2001 Unknown [id number] 2.16.840.1.741100.3.579.2. 1259 1959 Self-pay 1959 Unknown [id number] 1959 Unknown [id number] Unknown [id number] 2.16.840.1.089609.3.579.2. 593 Unknown [id number] 2.16.840.1.404669.3.579.2. 531 Social History Date Type Detail Facility Start: 10-13-2023 End: 06-29-2024 Sex Assigned At [facility] [employer] Other Start: 2001 Sex Assigned At Female [facility] Start: 10-13-2023 End: 05-10-2025 Tobacco smoking status NHIS Never smoked tobacco [facility] Start: 06-29-2024 End: 05-28-2025 Alcoholic beverage intake Current drinker of alcohol (finding) [facility] Start: 10-13-2023 End: 06-29-2024 History of Social function [facility] Start: 05-24-2024 [facility] Start: 2001 Sex assigned at Not on file [facility] Tobacco smoking stat us AZIS Unknown if ever smoked [facility] Work Phone: Start: 04-29-2015 End: 08-11-2024 Sex Female (finding) [facility] Start: 05-10-2025 End: 05-31-2025 Alcoholic beverage intake [facility] Medical Equipment Procedure Code Equipment Code Equipment Origin al Text Equipment Identifier Dates 1 strip by In Vi tro route Daily Use in the morning prior to breakfast, 1 hour after each meal for a total of 4times daily. [id number] Start: 05-08-2025 End: 06-07-2025 1 each by In Vit ro route Daily Use to check FSBS four times daily [id number] Start: 05-08-2025 End: 06-07-2025 Clinical Notes 12-26-2022 to 06-12-2025 Rossana Ramos, TRUE - 06/12/2025 3:00 PM EDTTelephone Encounter - [...] Problems Diagnosis Date Noted induced hypertension, antepartum ([facility]) 05/28/2025 Gestational diabetes mellitus (GDM), antepartum ([facility]) 05/28/2025 Resolved Ambulatory Problems Diagnosis Date Noted No Resolved Ambulatory Problems Past Medical History: Diagnosis Date Anemia Gestational diabetes ([facility]) History of blood transfusion Lead poisoning Miscarriage ([facility]) Nonsmoker Post depression HISTORY PAST MEDICAL HISTORY SOCIAL HISTORY Past Medical History: Diagnosis Date Anemia Gestational diabetes ([facility]) History of blood transfusion Lead poisoning Miscarriage ([facility]) Nonsmoker Post depression /anxiety Social History [...] ASSESSMENT & PLAN ICD-10-CM 1. Third trimester ([facility]) Z34.93 POCT urinalysis dipstick manually resulted 2. 34 weeks gestation of ([facility]) Z3A.34 POCT urinalysis dipstick manually resulted Return [...] TRUE Argueta documented in this encounter [facility] 06-05-2025 Miscellaneous Notes Received blood sugars [...] again next week. [facility] Telephone encounter Note Received blood sugars [...] send in more numbers again next week. 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 Patient does have multiple ultrasound scheduled with us Thank you for allowing me to participate in Vimal Funes . If there any questions please do not hesitate to contact us. Sincerely, MANAS MARTIN MD Video Visit via Real-time Synchronous Audiovisual Provider Location: [facility] AT [address] [address] Patient Location: [facility] office Patient Location Load Tester: None Video Visit Consent Statement: I discussed [...] that there are some limitations compared to [id number] evaluations. We elected to proceed. documented in this encounter [facility] 05-28-2025 Miscellaneous Notes Called regarding blood sugar logs from 05/20/25-05/26/25 but received voicemail. Vimal had 4 elevated fasting blood sugars and 2 elevated blood sugars after breakfast. Most recent fasting blood sugars have improved and she had three in target. We did talk last week about changing her evening snack. Will send a [employer] message. documented in this encounter [facility] 05-28-2025 Telephone encounter Note Called regarding blood sugar logs from 05/20/25-8/31/25 but received voicemail. Vimal had 4 elevated fasting blood sugars and 2 elevated blood sugars after breakfast. Most recent fasting blood sugars have improved and she had three in target. We did talk last week about changing her evening snack. Will send a Hospicelink message. [employer] Work Phone: 05-28-2025 History of Presen t illness Narrative Reason for Appointment: Patient ID: Vimal Funes is a 25 y.o. female who presents for Routine Visit Patient presents today for Return OB appointment. MEDICATIONS Current Outpatient Medications Medication Instructions Alcohol Swabs (Alcohol Prep Pad) 70 % pads 1 Pad, Topical, Daily, Use four times daily to check FSBS. Blood Glucose Monitoring Suppl (D-MoneyMan Glucometer) w/Device kit 1 kit, Does not [...] nursing note reviewed. Exam conducted with a production statistical clerk present. Vitals: Estimated body mass index is 32.06 kg/m as calculated from the following: Height as of 01/06/23: 5' 3 . Weight as of this encounter: 181 lb. BP: 136/80 Patient's last menstrual period was 10/15/2024 (exact date). ASSESSMENT & PLAN ICD-10-CM 1. Third trimester ([facility]) Z34.93 POCT urinalysis dipstick manually resulted 2. 32 weeks gestation of ([facility]) Z3A.32 3. Gestational diabetes mellitus (GDM), antepartum, gestational diabetes method of control unspecified ([facility]) O24.419 4. induced hypertension, antepartum ([facility]) O13.9 Return OB: Patient presents today [...] Rodriguez DO documented in this encounter [facility] 05-22-2025 History of Presen t illness Narrative Reason for Appointment: Patient ID: Vimal Funes is a 25 y.o. female who presents for Routine Visit Patient presents today for Return OB appointment. MEDICATIONS Current Outpatient Medications Medication Instructions Alcohol Swabs (Alcohol Prep Pad) 70 % pads 1 Pad, Topical, Daily, Use four times daily to check FSBS. Blood Glucose Monitoring Suppl (D-MoneyMan Glucometer) w/Device kit 1 kit, Does not [...] History of blood transfusion Lead poisoning Miscarriage ([facility]) Nonsmoker Post depression HISTORY PAST MEDICAL HISTORY SOCIAL HISTORY Past Medical History: Diagnosis Date Anemia Gestational diabetes ([facility]) History of blood transfusion Lead poisoning Miscarriage ([facility]) Nonsmoker Post depression /anxiety Social History [...] nursing note reviewed. Exam conducted with a production statistical clerk present. Vitals: Estimated body mass index is 31.49 kg/m as calculated from the following: Height as of 01/06/23: 5' 3 . Weight as of this encounter: 177 lb 12 oz. BP: (!) 138/92 Patient's last menstrual period was 10/15/2024 (exact date). ASSESSMENT & PLAN ICD-10-CM 1. Third trimester ([facility]) Z34.93 POCT urinalysis dipstick manually resulted 2. 31 weeks gestation of ([facility]) Z3A.31 Return OB: Patient presents today [...] Rodriguez DO documented in this encounter [facility] 05-21-2025 Miscellaneous Notes Called regarding blood [...] sugars next week. documented in this encounter [facility] 05-21-2025 Telephone encounter Note Called regarding [...] will send in blood sugars next week. [employer] Work Phone: 05-14-2025 History of Presen t illness Narrative Reason for Appointment: Patient ID: Vimal Funes is a 25 y.o. female who presents for Routine Visit Patient presents today for Return OB appointment. MEDICATIONS Current Outpatient Medications Medication Instructions Alcohol Swabs (Alcohol Prep Pad) 70 % pads 1 Pad, Topical, Daily, Use four times daily to check FSBS. Blood Glucose Monitoring Suppl (D-MoneyMan Glucometer) w/Device kit 1 kit, Does not [...] nursing note reviewed. Exam conducted with a production statistical clerk present. Vitals: Estimated body mass index is 31.35 kg/m as calculated from the following: Height as of 01/06/23: 5' 3 . Weight as of this encounter: 177 lb. BP: 140/90 Patient's last menstrual period was 10/15/2024 (exact date). ASSESSMENT & PLAN ICD-10-CM 1. Third trimester ([facility]) Z34.93 POCT urinalysis dipstick manually resulted 2. 30 weeks gestation of ([facility]) Z3A.30 POCT urinalysis dipstick manually resulted 3. induced hypertension, antepartum ([facility]) O13.9 Creatinine Protein, urine, 24 hour [...] Rodriguez DO documented in this encounter [facility] 05-13-2025 Group counseling note Patient: Vimal [...] Face to face time was 110 minutes. [employer] Work Phone: 05-13-2025 Miscellaneous Notes Patient: Vimal [...] was 110 minutes. documented in this encounter [facility] 05-07-2025 Telephone encounter Note Called pt to let her know that she did not pass her 3 hour glucose test and that I would be sending in supplies and referring her to diabetic education. [facility] 05-07-2025 Miscellaneous Notes Called pt to let her know that she did not pass her 3 hour glucose test and that I would be sending in supplies and referring her to diabetic education. documented in this encounter [facility] 04-30-2025 History of Presen t illness [...] History of blood transfusion Lead poisoning Miscarriage ([facility]) Nonsmoker Post depression HISTORY PAST MEDICAL HISTORY SOCIAL HISTORY Past Medical History: Diagnosis Date Anemia Gestational diabetes ([facility]) History of blood transfusion Lead poisoning Miscarriage ([facility]) Nonsmoker Post depression /anxiety Social History [...] resulted 2. -induced hypertension in third trimester ([facility]) O13.3 US biophysical profile w non stress test US OB follow up transabdominal approach labetalol (Normodyne) 300 MG tablet 3. Gestational diabetes mellitus (GDM) in third trimester, gestational diabetes method of control unspecified ([facility]) O24.419 US biophysical profile w non [...] TRUE Argueta documented in this encounter [facility] 04-25-2025 History of Presen t illness [...] Medical History: Diagnosis Date Anemia Gestational diabetes ([facility]) History of blood transfusion Lead poisoning Miscarriage ([facility]) Nonsmoker Post depression HISTORY PAST MEDICAL HISTORY SOCIAL HISTORY Past Medical History: Diagnosis Date Anemia Gestational diabetes ([facility]) History of blood transfusion Lead poisoning Miscarriage ([facility]) Nonsmoker Post depression /anxiety Social History [...] ASSESSMENT & PLAN ICD-10-CM 1. Second trimester ([facility]) Z34.92 2. 27 weeks gestation of ([facility]) Z3A.27 Patient presents for BP check. BP elevated today despite taking 100mg bid labetolol daily. We will increase to 200mg bid daily. Patient given labs and instructed to follow up with OB should she develop headache or vision changes Pt will follow up with DR Rodriguez next week Documented by TRUE Argueta on behalf of: TRUE Argueta documented in this encounter [facility] 04-11-2025 History of Presen t illness [...] ASSESSMENT & PLAN ICD-10-CM 1. Second trimester ([facility]) Z34.92 POCT urinalysis dipstick manually resulted 2. 25 weeks gestation of ([facility]) Z3A.25 3. Diabetes mellitus screening Z13.1 [...] TRUE Argueta documented in this encounter [facility] 03-14-2025 History of Presen t illness [...] nursing note reviewed. Exam conducted with a production statistical clerk present. Vitals: Estimated body mass index is 29.23 kg/m as calculated from the following: Height as of 01/06/23: 5' 3 . Weight as of this encounter: 165 lb. BP: 112/76 Patient's last menstrual period was 10/15/2024 (exact date). ASSESSMENT & PLAN ICD-10-CM 1. Second trimester ([facility]) Z34.92 POCT urinalysis dipstick manually resulted 2. 21 weeks gestation of ([facility]) Z3A.21 Patient presents today for a routine obstetrics appointment. Patient is currently 21w3d with a Estimated Date of Delivery: 07/22/25. Patient has no complaints at this time and will return to clinic in 4 weeks. Documented by Diamond Borja LPN on behalf of: Jose Rodriguez DO documented in this encounter [facility] 02-20-2025 History of Presen t illness [...] nursing note reviewed. Exam conducted with a production statistical clerk present. Vitals: Estimated body mass index is [...] TRUE Argueta documented in this encounter [facility] 01-14-2025 History of Presen t illness [...] nursing note reviewed. Exam conducted with a production statistical clerk present. Vitals: Estimated body mass index is [...] [facility] Patient has been consulted regarding any further [...] Rodriguez DO documented in this encounter [facility] 08-20-2024 History of Presen t illness [...] having a D&C Hysteroscopy performed at [facility] with Dr. Rodriguez. Pathology results was reviewed with the patient in great detail and all restrictions have been lifted. Follow Up: Patient is to return to the office for annual exam unless needed otherwise. Documented by TRUE Argueta on behalf of: TRUE Argueta documented in this encounter [facility] 08-06-2024 History of Presen t illness [...] nursing note reviewed. Exam conducted with a production statistical clerk present. Vitals: Estimated body mass index is [...] vaginal bleeding. Patient to discuss date with Gasoline Engine Assembler prior to leaving. Patient is able to obtain work note for the week and if longer is needed she will reach out to office. Documented by Diamond Borja LPN on behalf of: Jose Rodriguez DO documented in this encounter [facility] 06-29-2024 History of Presen t illness [...] and [facility] away [facility] Patient has also been advised to not [...] Whitney Peacock documented in this encounter [facility] 12-26-2022 Evaluation note Encounter Date Diagnosis [...] appointment to be seen soon as possible [employer] Other Evaluation noteNo assessment information available [facility] Work Phone: Evalujqirf note* Diagnosis Missed menses , unspecified gestational age Encounter for supervision of normal first in first trimester Nausea Nausea alone 7 weeks gestation of documented in this encounter [facility]* Diagnosis Miscarriage Unspecified spontaneous without mention of complication documented in this encounter [facility] note* Diagnosis Postoperative examination Follow-up examination, following unspecified surgery documented in this encounter [facility] note* Diagnosis 13 weeks gestation of Second trimester state, incidental documented in this encounter [facility] note* Diagnosis Screening, , for anatomic survey [...] unspecified [facility] Diagnosis Third trimester ([facility]) state, incidental 34 weeks gestation of ([facility]) documented in this [facility]ructions[facility] on filedocumented in this encounterPro[facility] SystemInstructionsNot on filedocumented in this encounterPro[facility] SystemInstructionsNot on filedocumented in this encounterProMedimn Health SystemInstructionsNot on filedocumented in this encounterProA[facility] Summary Purpose Family History No [...] section and content) DATE CREATED AUTHOR 09/24/2021 [facility] DATE CREATED AUTHOR AUTHOR'S ORGANIZ ATION 12/07/2022 [facility] DATE CREATED AUTHOR AUTHOR'S ORGANIZ ATION 08/15/2024 [facility] DATE CREATED AUTHOR AUTHOR'S ORGANIZ ATION 06/06/2025 [facility] DATE CREATED AUTHOR AUTHOR'S ORGANIZ ATION 06/12/2025 [facility] DATE CREATED AUTHOR AUTHOR'S ORGANIZ ATION 06/14/2025 [facility] EPIC REASON FOR VISIT (unrecogniz ed [...] control unspecified Jose Rodriguez R, DO [address] [place] [place] [address] Phone: tel: fax: Maternal- Medicine at [facility] [address] [place] [address] Phone: tel: fax: Referral ID Status Reason Start Date Expiration Date Visits Requested Visits Authorized [id number] Pending Review Specialty Services Required 05/09/2025 05/09/2026 1 1 Care Teams (unrecognized sec tion and content) Team Status: Inactive Member Role Status Dates SORIN DonC Attending Provider Active News Producer Relationship Specialty Start Date End Date Vaishali Zapata MD [address] [place] [address] PCP - General Family Medicine 02/04/23 News Producer Relationship Specialty Start Date End Date Vaishali Zapata MD [address] [place] [address] PCP - General Family Medicine 02/04/23 Team Status: Active Member Role Status Dates PHYSICIAN NO FAMILY Primary Care Provider Active Team Status: Inactive Member Role Status Dates PHYSICIAN NO FAMILY Primary Care Provider Active Start: August 10, 2024 End: August 10, 2024 Jose Rodriguez DO Attending Provider Active Start : August 10, 2024 End: August 10, 2024 News Producer Relationship Specialty Start Date End Date Unallocated, Arjun Vo MD [facility] [place] [address] PCP - General Family Medicine 08/03/24 News Producer Relationship Specialty Start Date End Date Unallocated, Arjun Vo MD [facility] [place] [address] PCP - General Family Medicine 08/03/24 News Producer Relationship Specialty Start Date End Date Unallocated, MD Zuhair Aguero [facility] [place] [address] PCP - General Family Medicine 08/03/24 News Producer Relationship Specialty Start Date End Date Unallocated, Arjun [facility] MD [facility] [address] PCP - General Family Medicine 08/03/24 News Producer Relationship Specialty Start Date End Date Unallocated, [place] [address] PCP - General Family Medicine 08/03/24 News Producer Relationship Specialty Start Date End Date Unallocated, Arjun Vo MD [facility] [address] [facility] [place] [address] PCP - General Family Medicine 08/03/24 News Producer Relationship Specialty Start Date End Date Unallocated, Arjun Vo MD [facility] [place] [address] PCP - General Family Medicine 08/03/24 News Producer Relationship Specialty Start Date End Date Unallocated, Arjun Vo MD [facility] [address]ERS [facility] [place] [address] PCP - General Family Medicine 08/03/24 News Producer Relationship Specialty Start Date End Date Unallocated, Arjun Vo MD [facility] [address] PETERS [facility] [place] [address] PCP - General Family Medicine 08/03/24 News Producer Relationship Specialty Start Date End Date Unallocated, Arjun Vo MD [facility] [address] PETERS [facility] [place] [address] PCP - General Family Medicine 08/03/24 News Producer Relationship Specialty Start Date End Date Unallocated, Arjun Vo MD [facility] [place] [address] PCP - General Family Medicine 08/03/24 News Producer Relationship Specialty Start Date End Date Unallocated, Arjun Vo MD [facility] [place] [address] PCP - General Family Medicine 08/03/24 News Producer Relationship Specialty Start Date End Date Unallocated, [place] [address] PCP - General Family Medicine 08/03/24 News Producer Relationship Specialty Start Date End Date Unallocated, Arjun Vo MD [address] [facility] [place] [address] PCP - General [facility] 08/03/24 News Producer Relationship Specialty Start Date End Date Unallocated, Arjun Vo MD [address] [place] [address] PCP - [facility] 08/03/24 News Producer Relationship Specialty Start Date End Date Unallocated, Arjun Vo MD [address] [place] [address] PCP - [facility] 08/03/24 News Producer Relationship Specialty Start Date End Date Unallocated, Arjun Vo MD [address] [facility] [place] [address] PCP - [facility] 08/03/24 Goals (unrecognized section and content) Goals [...] BE BASED ON THE PRIMARY CLINICAL RECORDS. [facility]. provides no warranty or guarantee of the accuracy or completeness of information in this document.
--- OUTSIDE RECORDS SUMMARY | 2025-06-15 11:00 | XMS_ITS | Encounter Summary ---
Author Organization [facility] Medicine in Practice [facility] tem Address [id number] [address] [place] [address] Care Team Providers Care Six Pack Loader Operator Name Role Phone Unavailable Primary Care Provider Unavailabl e Encounter Details Date Type Department Care Team ([facility] Contact Info) Description 05/31/2025 Orders Only Maternal- Medicine at [facility] [address] [place] [phone] Ref Prov, [place] [address] Social History Tobacco Use Types Packs/Day Years [...] Info) Description 06/18/2025 3:30 PM EDT Appointment [facility] US Imaging [address] [place] [address] 06/24/2025 2:15 PM EDT Appointment Maternal Medicine [place] [address] [place] [place] [address] documented as of this encounter Visit Diagnoses Not on filedocumented in this encounter
--- OUTSIDE RECORDS SUMMARY | 2025-06-15 11:00 | XMS_ITS | Encounter Summary ---
Author Organization [facility] tem Address [id number] [address] [place] [address] Care Team Providers Care Bird Trapper Name Role Phone Unavailable Primary Care Provider [...] Info) Description 06/18/2025 3:30 PM EDT Appointment [facility] US Imaging [address] [place] [address] 06/24/2025 2:15 PM EDT Appointment Maternal Medicine [place] [address] [place] [address] documented as of this encounter Visit Diagnoses Not on filedocumented in this encounter
--- OUTSIDE RECORDS SUMMARY | 2025-06-15 11:00 | XMS_ITS | Encounter Summary ---
Author Organization [facility] Address [address] [place] [address] Care Team Providers Care Cell Feed Department Supervisor Name Role Phone Unallocated, Noms Provider Primary Care Provi krissy Encounter Details Date Type Department Care Team (Late st Contact Info) Description 08/10/2024 Clinisync Result Encounter [facility] External Department Unsolicited Mackenzie Rodriguez DO [address], [facility]11 Social History Tobacco Use Types Packs/Day [...] Routine [facility] [facility] [address] [place] [phone] Mackenzie Rodriguez DO [address] [place] [address] documented as of this encounter Procedures Procedure Name Priority Date/Time Associated Diagnosis Comments US OB TRANSVAGINAL 08/10/2024 8: 44 AM EST documented in this encounter Results * US OB TRANSVAGINAL (08/10/2024 8:44 AM EST) Anatomical Region Laterality Modality Other 08/10/2024 8:44 AM EST Narrative 08/10/2024 8:47 [place] [address] Ultrasound Report Signed Patient: AMBER PIZANO MR#: [id number] : 2000 Acct:[id number] Age/Sex: 24 / F ADM Date: 08/10/24 Loc: SURGOUT Attending Dr: Mackenzie Rodriguez D.O. Ordering Physician: Mackenzie Rodriguez D.O. Date of Service: 08/10/24 Procedure(s): US OB transvaginal Accession Number(s): [id number] cc: LUIS SEE ; Mackenzie Rodriguez D.O. [facility] [place] [id number] Patient Name: AMBER PIZANO MRN: [id number] date: 2000 Sex: F Assigned Patient Location: [facility] Current Patient Location: [facility] Accession/Order Number: [id number] Exam Date: 08/10/2024 08:10 Report Date: 08/10/2024 [...] M.D. Signed By: 08/10/24846 DD/ 3 TD/TT: Psychiatry Instructor: Procedure Note Radiology, Radiologist, MD - 08/10/2024 [place] [address] Ultrasound Report Signed Patient: AMBER PIZANO MMR#: [id number] : 2000Acct:[id number] Age/Sex: 24 / FADM Date: 08/10/24 Loc: SURGOUT Attending Dr: Mackenzie Rodriguez D.O. Ordering Physician: Mackenzie Rodriguez D.O. Date of Service: 08/10/24 Procedure(s): US OB transvaginal Accession Number(s): [id number] cc: LUIS SEE ; Mackenzie Rodriguez D.O. [facility] [place] [id number] Patient Name: AMBER PIZANO MRN: [id number] date: 2000 Sex: F Assigned Patient Location: [facility] Current Patient Location: [facility] Accession/Order Number: [id number] Exam Date: 08/10/2024 08:10 Report Date: 08/10/2024 [...] Lavon Herrera M.D. Signed By:08/10/2447 DD/ TD/TT: Psychiatry Instructor: us Mackenzie Michael DO [facility] Final Result documented in this encounter Visit Diagnoses Not on filedocumented in this encounter Care Teams Cell Feed Department Supervisor Relationship Specialty Start Date End Date Unallocated, Noms Provider, [address] [place] [address] PCP - General Family Medicine 08/03/24 documented as of this encounter
--- OUTSIDE RECORDS SUMMARY | 2025-06-15 11:00 | XMS_ITS | Encounter Summary ---
Author Organization [facility] Address [address] [place] [address] Care Team Providers Care Banquet Bartender Name Role Phone Unallocated, Noms Provider Primary Care Provi krissy Encounter Details Date Type Department Care Team (Late Contact Info) Description 05/08/2025 Abstract ARJUN PANG [facility] [place] [address] Jose Rodriguez DO [address], [facility]11 Social History Tobacco [...] EDT Routine NOMMay PANG [address] [place] [address] Jose Rodriguez DO [address] [facility] [place] [place] [address] documented as of this encounter Visit Diagnoses Not on filedocumented in this encounter Care Teams Banquet Bartender Relationship Specialty Start Date End Date Unallocated, Noms Provider, [place] [address] PCP - General Family Medicine 08/03/24 documented as of this encounter
--- OUTSIDE RECORDS SUMMARY | 2025-06-15 11:00 | XMS_ITS | Encounter Summary ---
Author Organization [facility] tem Address [id number] [address] [place] [address] Care Team Providers Care Car Manager Name Role Phone Unavailable Primary Care [...] Info) Description 06/18/2025 3:30 PM EDT Appointment [facility] US Imaging [address] [place] [address] 06/24/2025 2:15 PM EDT Appointment Maternal Medicine [place] [address] [place] [address] documented as of this encounter Visit Diagnoses Not on filedocumented in this encounter
--- OUTSIDE RECORDS SUMMARY | 2025-06-15 11:00 | XMS_ITS | Encounter Summary ---
Author Organization [facility] tem Address [id number] [address] [place] [address] Care Team Providers Care Automatic Toe Laster Name Role Phone Unavailable Primary Care Provider Unavailabl e Encounter Details Date Type Department Care Team ([facility] st Contact Info) Description 06/05/2025 Telephone Maternal- Medicine at [facility] [address] [facility] [place] [phone] Xenia Rayo, ALEC [address] [facility], [address] [place], [place] [phone] Social History Tobacco Use Types Packs/Day Years [...] Info) Description 06/18/2025 3:30 PM EDT Appointment [facility] US Imaging [address] [place] [address] 06/24/2025 2:15 PM EDT Appointment Maternal Medicine [place] [address] [place] [address] documented as of this encounter Visit Diagnoses Not on filedocumented in this encounter
--- OUTSIDE RECORDS SUMMARY | 2025-06-15 11:00 | XMS_ITS | Encounter Summary ---
Author Organization [facility] Address [address] [place] [address] Care Team Providers Care Freight Router Name Role Phone Vaishali Zapata MD Primary Care Provider Bipin cheng Unallocated, Noms Provider Primary Care Provi krissy Encounter Details Date Type Department Care Team (Late st Contact Info) Description 08/02/2024 Abstract ARJUN PANG [address] [place] [address] Jose Rodriguez DO [address], [place] [address] Social History Tobacco Use Types Packs/Day Years [...] 2:30 PM EDT Routine ARJUN PANG [address] [place] [address] Jose Rodriguez DO [address], [facility] documented as of this encounter Visit Diagnoses Not on filedocumented in this encounter Care Teams Freight Router Relationship Specialty Start Date End Date Vaishali Zapata MD [address] [place] [address] PCP - General Family Medicine 02/04/23 08/02/24 Unallocated, Noms Provider, [address] [place] [address] PCP - General Family Medicine 08/03/24 documented as of this encounter
--- OUTSIDE RECORDS SUMMARY | 2025-06-15 11:00 | XMS_ITS | Encounter Summary ---
Author Organization [facility] tem Address [facility][id number] [address] [place] [address] Care Team Providers Care Back Tufter Name Role Phone Unavailable Primary Care Provider [...] consult Chris Martin MD [address], [address] [place] [address] Phone: tel: fax: Maternal- Medicine at [place] [address] [place] [address] Phone: tel: fax: Referral ID Status Reason Start Date Expiration Date V isits Requested Visits Authorized [id number] Pending Review 06/04/2025 06/04/2026 1 1 * [...] consult Chris Martin MD [address], [address] [place] [address] Phone: tel: fax: Maternal- Medicine at [facility] [address] [place] [address] Phone: tel: fax: Referral ID Status Reason Start Date Expiration Date V isits Requested Visits Authorized [id number] Pending Review 06/04/2025 06/04/2026 1 1 Encounter Details Date Type Department Care Team (Late st Contact Info) Description 06/04/2025 Orders Only Maternal- Medicine at [facility] [address] [place] [address] Marii Yoo, RN Poor growth [...] Info) Description 06/18/2025 3:30 PM EDT Appointment [facility] - [facility] US Imaging [address] [place] [address] 06/24/2025 2:15 PM EDT Appointment Maternal Medicine [place] [address] [place] [address] [place] [address] Scheduled Orders Name Type Priority [...] 8:39 AM EDT) Anatomical Region Laterality Modality OB-MOTOR VEHICLE COMPLIANCE ANALYST Ultrasound 06/11/2025 8:10 AM EDT Narrative 06/11/2025 10:28 AM EDT NAME: JERICA CELIS : 2000 SEX: F Accession Number: [id number] ORDERING PHYSICIAN: CHRIS MARTIN REFERRING PHYSICIAN: MACKENZIE SANDERSON Coding ----- --------- Procedures 62609: Limited OB / DANYA, 1 or More Fetuses 87358: Doppler velocimetry, ; umbilical artery Indication ----- [...] today's exam. Recommendations ----- --------- Please see [facility] recommendations from prior clinical and/or ultrasound report documentation. The patient is scheduled for weekly Dopplers. The patient is scheduled in two weeks for growth ultrasound and Dopplers. Continue testing as previously recommended. Subsequent follow up or other follow up as clinically determined by primary OB provider unless otherwise specified by [facility]. Results forwarded to ordering provider so they can follow up with the patient as necessary. Procedure Note Maria Luisa Patel MD - 06/11/2025 NAME: JERICA CELIS : 2000 SEX: F Accession Number: [id number] ORDERING PHYSICIAN: CHRIS MARTIN REFERRING PHYSICIAN: MACKENZIE SANDERSON Coding ----- --------- Procedures 61260: Limited OB / DANYA, 1 or More Fetuses 19008: Doppler velocimetry, ; umbilical artery Indication ----- [...] today's exam. Recommendations ----- --------- Please see [facility] recommendations from prior clinical and/or ultrasoundreport documentation. The patient is scheduled for weekly Dopplers. The patient is scheduled in two weeks for growth ultrasound andDopplers. Continue testing as previously recommended. Subsequent follow up or other follow up as clinically determined byprimary OB provider unless otherwise specified by [facility]. Results forwarded to ordering provider so [...]
--- OUTSIDE RECORDS SUMMARY | 2025-06-15 11:00 | XMS_ITS | Encounter Summary ---
Author Organization [facility] tem Address [id number] [address] [place] [address] Care Team Providers Care Harmonic Analyst Name Role Phone Unavailable Primary Care Provider [...] Info) Description 06/18/2025 3:30 PM EDT Appointment [facility] US Imaging [address] [place] [address] 06/24/2025 2:15 PM EDT Appointment Maternal Medicine [place] [address] [place] [address] documented as of this encounter Visit Diagnoses Not on filedocumented in this encounter
--- OUTSIDE RECORDS SUMMARY | 2025-06-15 11:01 | XMS_ITS | Encounter Summary ---
Author Organization [facility] Address [address] [place] [address] Care Team Providers Care Telephone Solicitor Name Role Phone Unallocated, Noms Provider Primary Care Provi krissy Encounter Details Date Type Department Care Team (Late st Contact Info) Description 06/05/2025 Abstract ARJUN PANG [facility] [place] [address] Jose Rodriguez DO [address], [facility]11 Social History Tobacco [...] EDT Routine ARJUN PANG [address] [place] [address] Jose Rodriguez DO [address] [facility] [address] [place] [address] documented as of this encounter Visit Diagnoses Not on filedocumented in this encounter Care Teams Telephone Solicitor Relationship Specialty Start Date End Date Unallocated, Noms Provider, [place] [address] PCP - General Family Medicine 08/03/24 documented as of this encounter
--- OUTSIDE RECORDS SUMMARY | 2025-06-15 11:01 | XMS_ITS | Encounter Summary ---
Author Organization [facility] Address [address] [place] [address] Care Team Providers Care Mgmt Specialist Name Role Phone Unallocated, Noms Provider Primary Care Provi krissy Encounter Details Date Type Department Care Team (Late st Contact Info) Description 06/04/2025 External Result Encounter [facility] [place] PANG [address] [place] [address] Mackenzie Rodriguez DO [facility] [address], [facility] Social [...] Routine [facility] [place] PANG [address] [place] [address] Mackenzie Rodriguez DO [address] [place] [address] [address] [place] [place] [address] documented as of this encounter Procedures Procedure Name Priority Date/Time Associated Diagnosis Comments US OB 14+ WEEKS ANATOMY SCAN 06/04/2025 4:20 PM EDT documented in this encounter Results * US OB 14+ weeks anatomy scan (06/04/2025 4:20 PM EDT) Anatomical Region Laterality Modality Body Ultrasound 06/04/2025 4:20 PM EDT Narrative 06/04/2025 4:20 PM EDT THIS EXAM WAS PERFORMED AT [facility] NAME: MARIN CELIS : 2000 SEX: F Accession Number: [id number] ORDERING PHYSICIAN: CHRIS MARTIN REFERRING PHYSICIAN: MACKENZIE RODRIGUEZ Coding ----- --------- Procedures 40140: Ultrasound, uterus, real time with image documentation, and maternal evaluation plus detailed anatomic examination, transabdominal approach;single or first gestation 55327: Doppler velocimetry, ; umbilical artery Indication ----- [...] EFW (oz) 4 oz EFW by: Hadlock ([id number]) Extended Tibia 49.0 mm 29w 3d <1% Khanh Foot 56.8 mm <1% Chitty Sheet Ironworker 4.6 mm CM 6.2 mm 19% Nicolaides [...] bone. Maxilla. Mandible. Orbits. Heart/Thorax: LVOT view. 4-gwtcsk-gzrlmju view. Situs. Ductal arch view. Cardiac position. [...] - 06/04/2025 THIS EXAM WAS PERFORMED AT [facility] NAME: MARIN CELIS : 2000 SEX: F Accession Number: [id number] ORDERING PHYSICIAN: CHRIS MARTIN REFERRING PHYSICIAN: MACKENZIE RODRIGUEZ Coding ----- --------- Procedures 81364: Ultrasound, uterus, real time with imagedocumentation, and maternal evaluation plus detailed anatomic examination, transabdominalapproach;single or first gestation 18397: Doppler velocimetry, ; umbilical artery Indication ----- [...] EFW (oz) 4 oz EFW by: Hadlock ([id number]) Extended Tibia 49.0 mm 29w 3d <1% Khanh Foot 56.8 mm <1% Chitty Sheet Ironworker 4.6 mm CM 6.2 mm 19% Nicolaides [...] bone. Maxilla. Mandible. Orbits. Heart/Thorax: LVOT view. 7-zlmmyj-vgzxtun view. Situs. Ductal arch view.Cardiac position. Cardiac [...] on filedocumented in this encounter Care Teams Mgmt Specialist Relationship Specialty Start Date End Date Unallocated, Noms Gilda, [address] [place] [address] PCP - General Family Medicine 08/03/24 documented as of this encounter
--- OUTSIDE RECORDS SUMMARY | 2025-06-15 11:01 | XMS_ITS | Encounter Summary ---
Author Organization [facility] Address [address] [place] [address] Care Team Providers Care Fashion Artist Name Role Phone Unallocated, Noms Provider Primary Care Provi krissy Encounter Details Date Type Department Care Team (Late st Contact Info) Description 08/10/2024 Abstract ARJUN PANG [facility] [place] [address] Jose Rodriguez DO [address], [place] [address] Social History Tobacco Use Types Packs/Day Years [...] 06/19/2025 2:30 PM EDT Routine ARJUN PANG [facility] [place] [address] Jose Rodriguez DO [address], [facility]11 documented as of this encounter Visit Diagnoses Not on filedocumented in this encounter Care Teams Fashion Artist Relationship Specialty Start Date End Date Unallocated, Noms Provider, [address] [place] [address] PCP - General Family Medicine 08/03/24 documented as of this encounter
--- OUTSIDE RECORDS SUMMARY | 2025-06-15 11:01 | XMS_ITS | Encounter Summary ---
Author Organization [facility] Address [address] [place] [address] Care Team Providers Care Customer Field Representative Name Role Phone Unallocated, Noms Provider Primary Care Provi krissy Encounter Details Date Type Department Care Team (Late st Contact Info) Description 03/11/2025 Results Follow-Up [facility] [place] [facility] [address] [place] [address] Glenna Butler LPN [address] [place] [address] US OB ANATOMY Social History [...] PM EDT Routine [facility] [place] [facility] [address] [facility] [place] [address] Jose Rodriguez DO [address] [place] [address] documented as of this encounter Visit Diagnoses Not on filedocumented in this encounter Care Teams Customer Field Representative Relationship Specialty Start Date End Date Unallocated, Noms Gilda, [address] [place] [address] PCP - General Family Medicine 08/03/24 documented as of this encounter
--- OUTSIDE RECORDS SUMMARY | 2025-06-15 11:01 | XMS_ITS | Encounter Summary ---
Author Organization [facility] Address [address] [place] [address] Care Team Providers Care Military Pay Technician Name Role Phone Unallocated, Noms Provider Primary Care Provi krissy Encounter Details Date Type Department Care Team (Late st Contact Info) Description 03/06/2025 Orders Only ARJUN PANG [address] [place] [address] Kavitha Almanza MA Social History Tobacco [...] [address] Jose Rodriguez DO [address], [place] [id number] documented as of this encounter Procedures Procedure Name Priority Date/Time Associated Diagnosis Comments PAP SMEAR Routine 02/20/2025 12:00 AM EDT documented in this encounter Results * Pap Smear (02/20/2025 12:00 AM EDT) Swab Cervical swab / Unknown us [facility] ORDERABLES Final Re sult EXTERNAL LAB documented in this encounter Visit Diagnoses Not on filedocumented in this encounter Care Teams Military Pay Technician Relationship Specialty Start Date End Date Unallocated, Noms Provider, [address] [place] [address] PCP - General Family Medicine 08/03/24 documented as of this encounter
--- OUTSIDE RECORDS SUMMARY | 2025-06-15 11:01 | XMS_ITS | Clinical Summary ---
Author Organization [facility] Address [address] [place] [address] Care Team Providers Care Outside Plant Engineer Name Role Phone Unallocated, Noms Provider [...] antepartum, gestational diabetes method of control unspecified ([facility]),Elevat ed glucose tolerance test 1 kit [...] antepartum, gestational diabetes method of control unspecified ([facility]),Elevat ed glucose tolerance test 1 each by In Vitro route Daily Use to check FSBS four times daily 150 each 3 5 025 Glucose Blood (Blood Glucose Test) stripIndications :Gestational diabetes mellitus (GDM), antepartum, gestational diabetes method of control unspecified ([facility]),Elevat ed glucose tolerance test 1 strip by In Vitro route Daily Use in the morning prior to breakfast, 1 hour after each meal for a total of 4times daily. 150 strip 3 5 025 Active Problems Problem Noted Date Diagnosed Date induced hypertension, antepartum ([facility]) 05/28/2025 Gestational diabetes mellitus (GDM), antepartum ([facility]) 05/28/2025 Estimated Date of Delivery Comme nts Yes 07/22/2025 Based on last me nstrual period of 10/15/2024 (Exact Date) Encounters Date Type Department Care Team Description 06/12/2025 3:00 PM EDT Routine [facility] PANG [address] [place] [address] Rossana Leach PA Third trimester ([facility]); 34 weeks gestation of ([facility]) 06/12/2025 Bamboo flowsheet [facility] [address] [place] [address] Rossana Leach PA 06/08/2025 Clinisync Result Encounter NOMS External Department Unsolicited Rossana Leach PA 06/06/2025 Results Follow-Up [facility] [address] [place] [address] Meghanalacho Glenna, EDUCATION TRAINER US OB 14+ weeks anatomy scan 06/05/2025 Abstract [facility] [address] [place] [address] Mackenzie Rodriguez, 06/04/2025 External Result Encounter [facility] [address] Mackenzie Rodriguez, 06/01/2025 Clinisync Result Encounter NOMS External Department Unsolicited Rossana Leach PA 05/28/2025 10:30 AM EDT Routine [facility] Rafia [place] [address] Mackenzie Rodriguez, Third trimester ([facility]); 32 weeks gestation of ([facility]); Gestational diabetes mellitus (GDM), antepartum, gestational diabetes method of control unspecified ([facility]); induced hypertension, antepartum ([facility]) 05/28/2025 Bamboo flowsheet [facility] [address] [place] [address] Mackenzie Rodriguez, 05/25/2025 Clinisync Result Encounter NOMS External Department Unsolicited Rossana Leach PA 05/22/2025 2:40 PM EDT Routine [facility] [address] Mackenzie Rodriguez, Third trimester ([facility]); 31 weeks gestation of ([facility]) 05/22/2025 Bamboo flowsheet [facility] [address] [place] [address] Mackenzie Rodriguez, DO 05/20/2025 Clinisync Result Encounter NOMS External Department Unsolicited Mackenzie Rodriguez, 05/18/2025 Clinisync Result Encounter NOMS External Department Unsolicited Rossana Leach PA 05/18/2025 Clinisync Result Encounter NOMS External Department Unsolicited Mackenzie Rodriguez, 05/14/2025 2:40 PM [place] [address] Mackenzie Rodriguez, DO Third trimester ([facility]); 30 weeks gestation of ([facility]); induced hypertension, antepartum ([facility]) 05/14/2025 [place] [address] Mackenzie Rodriguez, 05/11/2025 Clinisync Result Encounter NOMS External Department Unsolicited Rossana Leach PA 05/08/2025 [place] [address] Mackenzie Rodriguez, DO 05/07/2025 Results [place] [address] Glenna Butler, EDUCATION TRAINER ALL CBC WITH AUTO DIFF, SRMCOH PROTHROMBIN [...] 10:50 AM EDT Routine [facility] Rafia [place] [address] Rossana Leach PA BP check; -induced hypertension in third trimester ([facility]); Gestational diabetes mellitus (GDM) in third trimester, gestational diabetes method of control unspecified ([facility]) 04/30/2025 Bamboo flowsheet [facility] [address] Rossana Leach PA 04/29/2025 Telephone [facility] Raf[facility] [place] [address] Kavitha Almanza MA 04/27/2025 Clinisync Result Encounter NOMS External Department Unsolicited Rossana Leach PA 04/25/2025 2:50 PM EDT Office Visit [facility] Gusman [place] [address] Rossana Leach PA Second trimester ([facility]); 27 weeks gestation of ([facility]); induced hypertension, antepartum ([facility]) 04/25/2025 Bamboo flowsheet NOMMay Gusman [facility] [place] [address] Rossana Leach PA 04/11/2025 3:30 PM EDT Routine [facility] Raf[facility] Gusman [place] [address] Rossana Leach PA Second trimester ([facility]); 25 weeks gestation of ([facility]); Diabetes mellitus screening; Elevated BP without diagnosis of hypertension 04/11/2025 Bamboo flowsheet NOMMay [place] [address] Rossana Leach PA 03/28/2025 Abstract N[facility] Gusman [facility] [address] Mackenzie Rodriguez DO 03/25/2025 Clinisync Result Encounter NOMS External Department Unsolicited Mackenzie Rodriguez DO from Last 3 Months [...] PM EDT Routine [facility] [address] [facility] [place] [address] Mackenzie Rodriguez DO [address] [place] [address] Health Maintenance Due Date Last Done Comments Influenza Vaccine (#1) 2025 08/28/2003, 2002 Procedures Procedure Name Priority Date/Time Associated Diagnosis Comments POCT URINALYSIS DIPSTICK Routine 06/12/2025 3:32 PM EDT Third trimester ([facility]) 34 weeks gestation of ([facility]) US OB BPP W NON-STRESS 06/08/2025 12:10 PM EDT US OB 14+ WEEKS ANATOMY SCAN 06/04/2025 4:20 PM EDT US OB BPP W NON-STRESS 06/01/2025 12:03 PM EDT POCT URINALYSIS DIPSTICK Routine 05/28/2025 11:00 AM EDT Third trimester ([facility]) US OB BPP W NON-STRESS 05/25/2025 11:13 AM EDT POCT URINALYSIS DIPSTICK Routine 05/22/2025 3:12 PM EDT Third trimester ([facility]) TBH TOTAL PROTEIN 24 HOUR URINE Routine [...] Routine 04/25/2025 3:12 PM EDT Second trimester ([facility]) POCT URINALYSIS DIPSTICK Routine 04/11/2025 3:44 PM EDT Second trimester ([facility]) US OB INCOMPLETE ANATOMY 03/25/2025 8:25 AM EDT from Last 3 Months Results * (ABNORMAL) POCT urinalysis dipstick manually resulted (06/12/2025 3:32 PM EDT) Only the most recent of6 [...] - Positive Urine 06/12/2025 3:32 PM EDT us Mackenzie Michael DO POINT OF CARE TEST ENTER/EDIT OR DERABLES Final Result * US OB BPP W NON-STRESS (06/08/2025 12:10 PM EDT) Only the most recent of6 resultswithin the time period is included. Anatomical Region Laterality Modality Other 06/08/2025 12:1 0 PM EDT Narrative 06/08/2025 12:13 PM EDT [address] [address] Ultrasound Report Signed Patient: VIMAL FUNES MR#: [id number] : 2000 Acct:[id number] Age/Sex: 25 / F ADM Date: 06/08/25 Loc: US Attending Dr: Rossana Leach Ordering Physician: Rossana Leach Date of Service: 06/08/25 Procedure(s): US OB BPP w non-stress Accession Number(s): [id number] cc: Rossana Leach; LUIS SEE [place] [id number] Patient Name: VIMAL FUNES MRN: [facility]:[id number] date: 2000 Sex: F Assigned Patient Location: [facility] Current Patient Location: Accession/Order Number: [id number] Exam Date: 06/08/2025 11:01 Report Date: 06/08/2025 [...] Knapp M.D. 06/08/2025 12:10 PM Dictation Location: [place] [address] Electronically authenticated by: [id number] Y Date: 06/08/2025 12:10 Dictated By: Shivam Knapp D.O. Signed By: 06/08/25 1213 DD/ 1210 TD/TT: Cafeteria Operator: Procedure Note Radiology, Radiologist, MD - 06/08/2025 [place] [address] Ultrasound Report Signed Patient: VIMAL FUNES MMR#: [id number] : 2000Acct:[id number] Age/Sex: 25 / FADM Date: 06/08/25 Loc: US Attending Dr: Rossana Leach Ordering Physician: Rossana Leach Date of Service: 06/08/25 Procedure(s): US OB BPP w non-stress Accession Number(s): [id number] cc: Rossana Leach; LUIS SEE [place] [address] Patient Name: VIMAL FUNES MRN: [facility]:[id number] date: 2000 Sex: F Assigned Patient Location: [facility] Current Patient Location: Accession/Order Number: [id number] Exam Date: 06/08/2025 11:01 Report Date: 06/08/2025 [...] Knapp M.D. 06/08/2025 12:10 PM Dictation Location: [place] [address] Electronically authenticated by: [id number] Y Date: 2:10 Dictated By: Shivam Knapp D.O. Signed By:06/08/25 1213 DD/ 1210 TD/TT: Cafeteria Operator: us Rossana BISWAS CLINISYNC IMAGING Final Result * US OB 14+ weeks anatomy scan (06/04/2025 4:20 PM EDT) Anatomical Region Laterality Modality Body Ultrasound 06/04/2025 4:20 PM EDT Narrative 06/04/2025 4:20 PM EDT THIS EXAM WAS PERFORMED AT [facility] NAME: MARIN CELIS : 2000 SEX: F Accession Number: [id number] ORDERING PHYSICIAN: CHRIS MARTIN REFERRING PHYSICIAN: MACKENZIE RODRIGUEZ Coding ----- --------- Procedures 51587: Ultrasound, uterus, real time with image documentation, and maternal evaluation plus detailed anatomic examination, transabdominal approach;single or first gestation 46372: Doppler velocimetry, ; umbilical artery Indication ----- [...] EFW (oz) 4 oz EFW by: Hadlock ([id number]) Extended Tibia 49.0 mm 29w 3d <1% Khanh Foot 56.8 mm <1% Chitty Radiography Technician 4.6 mm CM 6.2 mm 19% [...] bone. Maxilla. Mandible. Orbits. Heart/Thorax: LVOT view. 7-qfzndj-pwcaikw view. Situs. Ductal arch view. Cardiac position. [...] 4.2 cm. Recommendations ----- --------- Please see [facility] documentation from today. Subsequent follow up or other follow up as clinically determined by primary OB provider unless otherwise specified by [facility]. Results forwarded to ordering provider so they can follow up with the patient as necessary. The copy-to physician of this order is MACKENZIE Victoria The ordering physician of this order is CHRIS Patterson Procedure Note Radiology, Radiologist, MD - 06/04/2025 THIS EXAM WAS PERFORMED AT [facility] NAME: MARIN CELIS : 2000 SEX: F Accession Number: [id number] ORDERING PHYSICIAN: CHRIS MARTIN REFERRING PHYSICIAN: MACKENZIE RODRIGUEZ Coding ----- --------- Procedures [id number]: Ultrasound, uterus, real time with imagedocumentation, and maternal evaluation plus detailed anatomic examination, transabdominalapproach;single or first gestation 37335: Doppler velocimetry, ; umbilical artery Indication ----- [...] EFW (oz) 4 oz EFW by: Hadlock ([id number]) Extended Tibia 49.0 mm 29w 3d <1% Khanh Foot 56.8 mm <1% Chitty Radiography Technician 4.6 mm CM 6.2 mm 19% [...] bone. Maxilla. Mandible. Orbits. Heart/Thorax: LVOT view. 7-cidqwa-rzsayed view. Situs. Ductal arch view.Cardiac position. Cardiac [...] is CHRIS Patterson us Mackenzie Rodriguez DO [facility] OB US PROCEDURES Final Resul t * [...] DO CLINISYNC Final Result Performing Organization Address City/[facility] Co de Phone Number [facility] * (ABNORMAL) TBH CREATININE (05/18/2025 11:03 AM EDT) Only the most recent of2 resultswithin the time period is included. CREATININE 0.38(L) 0.55 - 1.02 mg/dL TBH TBH EGFR-AF LEBANESE >60 >=60 mL/min/1.7 3m 2 TBH TBH EGFR-NON AF LEBANESE >60 >=60 mL/min/1.7 3m 2 TBH 05/18/2025 11:0 3 AM EDT 05/18/2025 11:08 AM EDT Narrative CLINISYNC - 05/18/2025 11:50 AM EDT Mackenzie Michael DO CLINISYNC Final Result Performing Organization Address [facility] de Phone Number [facility] * SRMCOH PROTHROMBIN TIME INR W/O [...] DO CLINISYNC Final Result Performing Organization Address [facility]/ZIP Co de Phone Number [facility] * CCF AST (05/18/2025 11:03 AM EDT) Only the most recent of2 resultswithin the time period is included. ASPARTATE AMINO TRANSFERASE 18 15 - 37 U/L TB 05/18/2025 11:0 3 AM EDT 05/18/2025 11:08 AM EDT Narrative CLINISYNC - 05/18/2025 11:50 AM EDT Mackenzie Michael DO CLINISYNC Final Result Performing Organization Address [facility] de Phone Number [facility] * [facility]CF APTT (05/18/2025 11:03 AM EDT) Only the most recent of2 resultswithin the time period is included. PARTIAL THROMBOPLASTIN TIME 25.6 22.3 - 36.2 sec TB 05/18/2025 11:0 3 AM EDT 05/18/2025 11:08 AM EDT Narrative CLINISYNC - 05/18/2025 11:29 AM EDT Mackenzie Michael DO CLINISYNC Final Result Performing Organization Address [facility] Phone Number [facility] * ALL URIC ACID (05/18/2025 11:03 AM EDT) Only the most recent of2 resultswithin the time period is included. URIC ACID 4.0 2.6 - 6.0 mg/dL TB 05/18/2025 11:0 3 AM EDT 05/18/2025 11:08 AM EDT Narrative CLINISYNC - 05/18/2025 11:50 AM EDT Mackenzie Michael DO CLINISYNC Final Result Performing Organization Address [facility] de Phone Number [facility] * ALL LDH (05/18/2025 11:03 AM EDT) Only the most recent of2 resultswithin the time period is included. Pathologist [facility] LACTATE DEHYDROGENASE 147 81 - 234 U/L TBH 05/18/2025 11:0 3 AM EDT 05/18/2025 11:08 AM EDT Narrative CLINISYNC - 05/18/2025 11:50 AM EDT us Mackenzie Michael DO CLINISYNC Final Result [facility] * (ABNORMAL) ALL CBC WITH AUTO DIFF (05/18/2025 11:03 AM EDT) Only the most recent of3 resultswithin the time period is included. Pathologist [facility] TB WBC 15.0(H) 4.0 - 11.0 10 3/uL TBH TBH RBC 4.17(L) 4.20 - 5.40 10 6/uL TBH TBH HGB 13.3 12.0 - 16.0 g/dL TBH TB HCT 38.1 36.0 - 48.0 % [...] us Mackenzie Michael DO CLINISYNC Final Result [facility] * ALL BUN (05/18/2025 11:03 AM EDT) Only the most recent of2 resultswithin the time period is included. BLOOD UREA NITROGEN 9.0 7.0 - 18.0 mg/dL TBH 05/18/2025 11:0 3 AM EDT 05/18/2025 11:08 AM EDT Narrative CLINISYNC - 05/18/2025 11:50 AM EDT us Mackenzie Michael DO CLINISYNC Final Result [facility] * US OB GROWTH (05/04/2025 12:08 PM EDT) Anatomical Region Laterality Modality Other 05/04/2025 12:0 8 PM EDT Narrative 05/04/2025 12:11 [place] [address] Ultrasound Report Signed Patient: VIMAL FUNES MR#: [id number] : 2000 Acct:[id number] Age/Sex: 25 / F ADM Date: 05/04/25 Loc: [facility] 250-[address]: Rossana Leach Ordering Physician: Rossana Leach Date of Service: 05/04/25 Procedure(s): US OB growth Accession Number(s): [id number] cc: LUIS Watkins [place] [id number] Patient Name: VIMAL FUNES MRN: TBH:[id number] date: 2000 Sex: F Assigned Patient Location: [facility] Current Patient Location: [facility] Accession/Order Number: [id number] Exam Date: 05/04/2025 12:06 Report Date: 05/04/2025 [...] Jr., D.O. 05/04/2025 12:08 PM Dictation [facility] Electronically authenticated by: [id number] Y Date: 05/04/2025 12:08 Dictated By: Bulmaro Arias M.D. Signed By: 05/04/25 1211 DD/ 1208 TD/TT: Cafeteria Operator: Procedure Note Radiology, Radiologist, MD - 05/04/2025 [place] [address] Ultrasound Report Signed Patient: VIMAL FUNES MMR#: [id number] : 2000Acct:[id number] Age/Sex: 25 / FADM Date: 05/04/25 Loc: [facility] 250-[address]: Rossana Leach Ordering Physician: Rossana Leach Date of Service: 05/04/25 Procedure(s): US OB growth Accession Number(s): [id number] cc: Rossana MANMER,LUIS [place] [address] Patient Name: VIMAL FUNES MRN: [facility]:[id number] date: 2000 Sex: F Assigned Patient Location: [facility] Current Patient Location: [facility] Accession/Order Number: [id number] Exam Date: 05/04/2025 12:06 Report Date: 05/04/2025 [...] Jr., D.O. 05/04/2025 12:08 PM Dictation Location: [place] [address] Electronically authenticated by: [id number] Y Date: 2:08 Dictated By: Bulmaro Arias M.D. Signed By:05/04/25 1211 DD/ 1208 TD/TT: Cafeteria Operator: Rossana BISWAS CLIN[facility] IMAGING Final Result * (ABNORMAL) GLUCOSE TOLERANCE 3 HOUR (05/04/2025 7:23 AM EDT) GLUCOSE TOLERANCE 3 HOUR (H) mg/dL TBH Comment: GLU FAST 108H (<95) Col: 05/04/25 0723 GLU 1HR 234H (<180) Col: 05/04/25 0826 GLU 2HR 186H (<155) Col: 05/04/25 0927 GLU 3HR 133 (<140) Col: 05/04/25 1028 05/04/2025 7:2 3 AM EDT 05/04/2025 7:38 AM EDT Narrative CLINISYNC - 05/04/2025 10:50 AM EDT us Rossana BISWAS LAB BLOOD ORDERABLES Final Resul t [facility] * (ABNORMAL) GLUCOSE 1 HOUR (04/27/2025 10:05 AM EDT) GLUCOSE 1 HOUR 171(H) <130 mg/dL TBH 04/27/2025 10:0 5 AM EDT 04/27/2025 10:06 AM EDT Narrative CLINISYNC - 04/27/2025 10:45 AM EDT us Rossana BISWAS LAB BLOOD ORDERABLES Final Resul t Performing Organization Address City/[facility] Co de Phone Number [facility] * US OB INCOMPLETE ANATOMY (03/25/2025 8:25 AM EDT) Anatomical Region Laterality Modality Other 03/25/2025 8:25 AM EDT Narrative 03/25/2025 8:27 AM EDT [address] [address] Ultrasound Report Signed Patient: VIMAL FUNES MR#: [id number] : 2000 Acct:[id number] Age/Sex: 24 / F ADM Date: 03/23/25 Loc: US Attending Dr: Mackenzie Rodriguez D.O. Ordering Physician: Mackenzie Rodriguez D.O. Date of Service: 03/23/25 Procedure(s): US OB incomplete anatomy Accession Number(s): [id number] cc: LUIS SEE ; Mackenzie Rodriguez D.O. [address] [address] Patient Name: VIMAL FUNES MRN: [id number]:[id number] date: 2000 Sex: F Assigned Patient Location: US Current Patient Location: US Accession/Order Number: [id number] Exam Date: 03/25/2025 08:23 Report Date: 03/25/2025 [...] Brown M.D. 03/25/2025 8:25 AM Dictation Location: [place] [address] Electronically authenticated by: [id number] Y Date: 03/25/2025 08:25 Dictated By: Meghana Brown M.D. Signed By: 03/25/25826 DD/ 4 TD/TT: Cafeteria Operator: Procedure Note Radiology, Radiologist, MD - 03/25/2025 [place] [address] Ultrasound Report Signed Patient: VIMAL FUNES MMR#: [id number] : 2000Acct:[id number] Age/Sex: 24 FADM Date: 03/23/25 Loc: US Attending Dr: Mackenzie Rodriguez D.O. Ordering Physician: Mackenzie Rodriguez D.O. Date of Service: 03/23/25 Procedure(s): US OB incomplete anatomy Accession Number(s): [id number] cc: LUIS ESE ; Mackenzie Rodriguez D.O. The [place] [address] Patient Name: VIMAL FUNES MRN: [id number]:[id number] date: 2000 Sex: F Assigned Patient Location: US Current Patient Location: US Accession/Order Number: [id number] Exam Date: 03/25/2025 08:23 Report Date: 03/25/2025 [...] Brown M.D. 03/25/2025 8:25 AM Dictation Location: [place] [address] Electronically authenticated by: [id number] Y Date: 508:25 Dictated By: Meghana Brown M.D. Signed By:03/25/2527 DD/ 4 TD/TT: Cafeteria Operator: Mackenzie Rodriguez DO CLINISYNC IMAGING Final Result from Last 3 Months Insurance [facility] [employer] MEDICA[employer] Care Teams Outside Plant Engineer Relationship Specialty Start Date End Date Unallocated, Noms Gilda, [address] [place] [address] PCP - General Family Medicine 08/03/24
--- OUTSIDE RECORDS SUMMARY | 2025-06-15 11:01 | XMS_ITS | Encounter Summary ---
Author Organization [facility] Address [address] [place] [address] Care Team Providers Care Lap Hand Tool Name Role Phone Vaishali Zapata MD Primary Care Provider Bipin cheng Unallocated, Noms Provider Primary Care Provi krissy Encounter Details Date Type Department Care Team (Late st Contact Info) Description 06/28/2024 Abstract ARJUN PANG [address] [place] [address] Jose Rodriguez DO [address] [place], [place] [address] Social History Tobacco Use Types Packs/Day Years [...] 2:30 PM EDT Routine ARJUN PANG [address] [place] [address] Jose Rodriguez DO [address] [place], [facility] documented as of this encounter Visit Diagnoses Not on filedocumented in this encounter Care Teams Lap Hand Tool Relationship Specialty Start Date End Date Vaishali Zapata MD [address] [place] [address] PCP - General Family Medicine 02/04/23 08/02/24 Unallocated, Noms Provider, [address] [place] [address] PCP - General Family Medicine 08/03/24 documented as of this encounter
--- OUTSIDE RECORDS SUMMARY | 2025-06-15 11:01 | XMS_ITS | Encounter Summary ---
Author Organization [facility] Address [address] [place] [address] Care Team Providers Care Supervisor Roving Name Role Phone Unallocated, Noms Provider Primary Care Provi krissy Encounter Details Date Type Department Care Team (Late Contact Info) Description 03/28/2025 Abstract ARJUN PANG [facility] [place] [address] Jose Rodriguez DO [address] [place], [facility]11 Social History Tobacco Use Types Packs/Day Years [...] EDT Routine NOMMay PANG [address] [place] [address] Jose Rodriguez DO [address] [facility] [address] [place] [address] documented as of this encounter Visit Diagnoses Not on filedocumented in this encounter Care Teams Supervisor Roving Relationship Specialty Start Date End Date Unallocated, Noms Provider, [place] [address] PCP - General Family Medicine 08/03/24 documented as of this encounter
--- OUTSIDE RECORDS SUMMARY | 2025-06-15 11:01 | XMS_ITS | Encounter Summary ---
Author Organization [facility] Address [address] [place] [address] Care Team Providers Care Credit Union Examiner Name Role Phone Unallocated, Noms Provider Primary Care Provi krissy Encounter Details Date Type Department Care Team (Late st Contact Info) Description 05/07/2025 Results Follow-Up ARJUN [place] [facility] [address] [facility] [place] [place] [address] Glenna Butler LPN [address] [place] [address] ALL CBC WITH AUTO DIFF, [...] PM EDT Routine ARJUN [place] OBGYN [address] [facility] [place] [address] Jose Rodriguez DO [address] [place] [address] documented as of this encounter Visit Diagnoses Not on filedocumented in this encounter Care Teams Credit Union Examiner Relationship Specialty Start Date End Date Unallocated, Arjun Vo MD [address] [place] [address] PCP - General Family Medicine 08/03/24 documented as of this encounter
--- OUTSIDE RECORDS SUMMARY | 2025-06-15 11:01 | XMS_ITS | Encounter Summary ---
Author Organization [facility] Address [address] [place] [address] Care Team Providers Care Physical Therapy Teacher Name Role Phone Unallocated, Noms Provider Primary Care Provi krissy Encounter Details Date Type Department Care Team (Late st Contact Info) Description 06/06/2025 Results Follow-Up [facility] [place] [facility] [address] [facility] [address] [place] [address] Glenna Butler LPN [address] [place] [address] OB 14+ weeks anatomy scan [...] PM EDT Routine [facility] [place] [facility] [address] [facility] [place] [address] Jose Rodriguez DO [address] [place] [address] documented as of this encounter Visit Diagnoses Not on filedocumented in this encounter Care Teams Physical Therapy Teacher Relationship Specialty Start Date End Date Unallocated, Noms MD [address] [place] [address] PCP - General Family Medicine 08/03/24 documented as of this encounter
--- OUTSIDE RECORDS SUMMARY | 2025-06-15 11:01 | XMS_ITS | Encounter Summary ---
Author Organization [facility] Address [address] [place] [address] Care Team Providers Care University Intern Name Role Phone Vaishali Chaidez MD Primary Care Provider Bipin cheng Unallocated, Noms Provider Primary Care Provi krissy Encounter Details Date Type Department Care Team (Late st Contact Info) Description 06/29/2024 Clinisync Result Encounter NOMS External Department Unsolicited Mackenzie Rodriguez, DO [address] [place], [place] [id number] Social History Tobacco Use Types Packs/Day Years [...] Routine [facility] [place] [facility] [address] [place] [phone] Mackenzie Rodriguez DO [address] [place] [address] documented as of this encounter Procedures Procedure Name Priority Date/Time Associated Diagnosis Comments US OB TRANSVAGINAL 06/29/2024 9: 11 AM EDT documented in this encounter Results * US OB TRANSVAGINAL (06/29/2024 9:11 AM EDT) Anatomical Region Laterality Modality Other 06/29/2024 9:11 AM EDT Narrative 06/29/2024 9:14 [place] [address] Ultrasound Report Signed Patient: Vimal Pizano MR#: [id number] : 2000 Acct:[id number] Age/Sex: 24 / F ADM Date: 06/29/24 Loc: [facility] Attending Dr: Mackenzie Rodriguez D.O. Ordering Physician: Mackenzie Rodriguez D.O. Date of Service: 06/29/24 Procedure(s): US OB transvaginal Accession Number(s): [id number] cc: Mackenzie Rodriguez D.O.; VAISHALI CHAIDEZ [place] [address] Patient Name: VIMAL PIZANO MRN: [id number] date: 2000 Sex: F Assigned Patient Location: [facility] Current Patient Location: [facility] Accession/Order Number: [id number] Exam Date: 06/29/2024 08:37 Report Date: 06/29/2024 [...] M.D. Signed By: 06/29/24913 DD/ 0 TD/TT: Tester Operator Helper: Procedure Note Radiology, Radiologist, MD - 06/29/2024 [place] [address] Ultrasound Report Signed Patient: Vimal Pizano MMR#: [id number] : 2000Acct:[id number] Age/Sex: 24 / FADM Date: 06/29/24 Loc: [facility] Attending Dr: Mackenzie Rodriguez D.O. Ordering Physician: Mackenzie Rodriguez D.O. Date of Service: 06/29/24 Procedure(s): US OB transvaginal Accession Number(s): [id number] cc: Mackenzie Rodriguez D.O.; VAISHALI CHAIDEZ [place] [address] Patient Name: VIMAL PIZANO MRN: [id number] date: 2000 Sex: F Assigned Patient Location: [facility] Current Patient Location: [facility] Accession/Order Number: [id number] Exam Date: 06/29/2024 08:37 Report Date: 06/29/2024 [...] Herrera M.D. Signed By:06/29/24913 DD/ 0 TD/TT: Tester Operator Helper: us Mackenzie Michael DO [facility] Final Result documented in this encounter Visit Diagnoses Not on filedocumented in this encounter Care Teams University Intern Relationship Specialty Start Date End Date Vaishali Chaidez MD [address] [place] [address] PCP - General Family Medicine 02/04/23 08/02/24 Unallocated, Noms Provider, [address] [place] [address] PCP - General Family Medicine 08/03/24 documented as of this encounter
--- OUTSIDE RECORDS SUMMARY | 2025-06-15 11:01 | XMS_ITS | Encounter Summary ---
Author Organization [facility] Address [address] [place] [address] Care Team Providers Care Operations Manager/Coordinator Name Role Phone Unallocated, Noms Provider Primary Care Provi krissy Encounter Details Date Type Department Care Team (Late st Contact Info) Description 08/10/2024 Abstract ARJUN PANG [facility] [place] [address] Jose Rodriguez DO [address] [place], [place] [address] Social History Tobacco Use Types Packs/Day Years [...] 06/19/2025 2:30 PM EDT Routine ARJUN PANG [facility] [place] [address] Jose Rodriguez DO [address] [place], [facility] documented as of this encounter Visit Diagnoses Not on filedocumented in this encounter Care Teams Operations Manager/Coordinator Relationship Specialty Start Date End Date Unallocated, Noms Provider, [address] [place] [address] PCP - General Family Medicine 08/03/24 documented as of this encounter
--- OUTSIDE RECORDS SUMMARY | 2025-06-15 11:01 | XMS_ITS | Encounter Summary ---
Author Organization [facility] Address [address] [place] [address] Care Team Providers Care Double End Chucking Machine Operator Name Role Phone Vaishali Zapata MD Primary Care Provider Bipin cheng Unallocated, Noms Provider Primary Care Provi krissy Encounter Details Date Type Department Care Team (Late st Contact Info) Description 06/29/2024 Abstract ARJUN PANG [address] [place] [address] Jose Rodriguez DO [address] [place], [place] [address] Social History Tobacco Use Types Packs/Day Years [...] 2:30 PM EDT Routine ARJUN PANG [address] [place] [address] Jose Rodriguez DO [address] [place], [facility]11 documented as of this encounter Visit Diagnoses Not on filedocumented in this encounter Care Teams Double End Chucking Machine Operator Relationship Specialty Start Date End Date Vaishali Zapata MD [address] [place] [address] PCP - General Family Medicine 02/04/23 08/02/24 Unallocated, Noms Provider, [address] [place] [address] PCP - General Family Medicine 08/03/24 documented as of this encounter
--- OUTSIDE RECORDS SUMMARY | 2025-06-15 11:01 | XMS_ITS | Encounter Summary ---
Author Organization [facility] Address [address] [place] [address] Care Team Providers Care Formal Service Waiter Name Role Phone Unallocated, Noms Provider Primary Care Provi krissy Encounter Details Date Type Department Care Team (Late st Contact Info) Description 06/08/2025 Clinisync Result Encounter [facility]S External Department Unsolicited Collin Leach PA [address] [place], [facility]11 Social History Tobacco Use [...] PM EDT Routine [facility] [address] [facility] [place] [phone] Jose Rodriguez DO [address] [place], [facility]11 documented as of this encounter Procedures Procedure Name Priority Date/Time Associated Diagnosis Comments US OB BPP W NON-STRESS 06/08/2025 12:10 PM EDT documented in this encounter Results * US OB BPP W NON-STRESS (06/08/2025 12:10 PM EDT) Anatomical Region Laterality Modality Other 06/08/2025 12:1 0 PM EDT Narrative 06/08/2025 12:13 [place] [address] Ultrasound Report Signed Patient: VIMAL PIZANO MR#: [id number] : 2000 Acct:[id number] Age/Sex: 25 / F ADM Date: 06/08/25 Loc: US Attending Dr: Collin Leach Ordering Physician: Collin Leach Date of Service: 06/08/25 Procedure(s): US OB BPP w non-stress Accession Number(s): [id number] cc: Collin Leach; LUIS SEE [address] [address] Patient Name: VIMAL PIZANO MRN: [id number] date: 2000 Sex: F Assigned Patient Location: [facility] Current Patient Location: Accession/Order Number: [id number] Exam Date: 06/08/2025 11:01 Report Date: 06/08/2025 [...] Knapp M.D. 06/08/2025 12:10 PM Dictation Location: [place] [address] Electronically authenticated by: [id number] Y Date: 06/08/2025 12:10 Dictated By: Shivam Knapp D.O. Signed By: 06/08/251212 DD/ 09 TD/TT: Hub Associate: Procedure Note Radiology, Radiologist, - 06/08/2025 [place] [address] Ultrasound Report Signed Patient: VIMAL PIZANO MMR#: [id number] : 2000Acct:[id number] Age/Sex: 25 / FADM Date: 06/08/25 Loc: US Attending Dr: Collin Leach Ordering Physician: Collin Leach Date of Service: 06/08/25 Procedure(s): US OB BPP w non-stress Accession Number(s): [id number] cc: Collin Leach; LUIS SEE [place] [id number] Patient Name: VIMAL PIZANO MRN: [id number] date: 2000 Sex: F Assigned Patient Location: [facility] Current Patient Location: Accession/Order Number: [id number] Exam Date: 06/08/2025 11:01 Report Date: 06/08/2025 [...] Knapp M.D. 06/08/2025 12:10 PM Dictation Location: [place] [address] Electronically authenticated by: [id number] Y Date: 2:10 Dictated By: Shivam Knapp D.O. Signed By:06/08/251212 DD/ 09 TD/TT: Hub Associate: us Collin BISWAS [facility] Final Result documented in this encounter Visit Diagnoses Not on filedocumented in this encounter Care Teams Formal Service Waiter Relationship Specialty Start Date End Date Unallocated, Noms Provider, [address] [place], [place] [phone] PCP - General Family Medicine 08/03/24 documented as of this encounter
--- OUTSIDE RECORDS SUMMARY | 2025-06-15 11:01 | XMS_ITS | Encounter Summary ---
Author Organization [facility] Address [address] [place] [address] Care Team Providers Care Stock Clipper Name Role Phone Unallocated, Noms Provider Primary Care Provi krissy Encounter Details Date Type Department Care Team (Late st Contact Info) Description 06/01/2025 Clinisync Result Encounter NOMS External Department Unsolicited Collin Leach PA [address] [place], [facility]11 Social History Tobacco Use Types Packs/Day [...] PM EDT Routine [facility] [address] [facility] [place] [phone] Jose Rodriguez DO [address] [place], [place] [address] documented as of this encounter Procedures Procedure Name Priority Date/Time Associated Diagnosis Comments US OB BPP W NON-STRESS 06/01/2025 12:03 PM EDT documented in this encounter Results * US OB BPP W NON-STRESS (06/01/2025 12:03 PM EDT) Anatomical Region Laterality Modality Other 06/01/2025 12:0 3 PM EDT Narrative 06/01/2025 12:06 [place] [address] Ultrasound Report Signed Patient: VIMAL PIZANO MR#: [id number] : 2000 Acct:[id number] Age/Sex: 25 / F ADM Date: 06/01/25 Loc: US Attending Dr: Collin Leach Ordering Physician: Collin Leach Date of Service: 06/01/25 Procedure(s): US OB BPP w non-stress Accession Number(s): [id number] cc: Collin Leach; LUIS SEE [address] [address] Patient Name: VIMAL PIZANO MRN: [id number] date: 2000 Sex: F Assigned Patient Location: US Current Patient Location: Accession/Order Number: [id number] Exam Date: 06/01/2025 10:59 Report Date: 06/01/2025 12:03 At the request of: COLLIN LEACH Procedure: US OB BPP w non-stress Biophysical profile. Reason for exam: Gestational diabetes COMPARISON: 05/25/2025 TECHNIQUE: Transabdominal imaging of the gravid uterus was obtained. FINDINGS: The tax map technician reports a BPP of 8 out of 8. DANYA is normal at 11.0 cm. Cardiac activity was visualized by the tax map technician per tech note. No heart rate was documented. US/US OB BPP w non-stress IMPRESSION: BPP 8 out of 8. Impression dictated by: Bulmaro Arias Jr., D.OGene 06/01/2025 12:03 PM Dictation Location: [facility] Electronically authenticated by: [id number] Y Date: 06/01/2025 12:03 Dictated By: Bulmaro Arias M.D. Signed By: 06/01/25 1206 DD/ 1203 TD/TT: Remote Sensing Technologist: Procedure Note Radiology, Radiologist, MD - 06/01/2025 [place] [address] Ultrasound Report Signed Patient: VIMAL PIZANO MMR#: [id number] : 2000Acct:[id number] Age/Sex: FADM Date: 06/01/25 Loc: US Attending Dr: Collin Leach Ordering Physician: Collin Leach Date of Service: 06/01/25 Procedure(s): US OB BPP w non-stress Accession Number(s): [id number] cc: Collin Leach; LUIS SEE [place] [address] Patient Name: VIMAL PIZANO MRN: [id number] date: 2000 Sex: F Assigned Patient Location: US Current Patient Location: Accession/Order Number: [id number] Exam Date: 06/01/2025 10:59 Report Date: 06/01/2025 12:03 At the request of: COLLIN LEACH Procedure: US OB BPP w non-stress Biophysical profile. Reason for exam: Gestational diabetes COMPARISON: 05/25/2025 TECHNIQUE: Transabdominal imaging of the gravid uterus was obtained. FINDINGS: The tax map technician reports a BPP of 8 out of 8. DANYA is normal at11.0 cm. Cardiac activity was visualized by the tax map technician per tech note. No heart rate was documented. US/US OB BPP w non-stress IMPRESSION: BPP 8 out of 8. Impression dictated by: Bulmaro Arias Jr., D.O. 06/01/2025 12:03 PM Dictation Location: [facility] Electronically authenticated by: [id number] Y Date: 512:03 Dictated By: Bulmaro Arias M.D. Signed By:06/01/25 1206 DD/ 1203 TD/TT: Remote Sensing Technologist: us Collin [facility] Final Result documented in this encounter Visit Diagnoses Not on filedocumented in this encounter Care Teams Stock Clipper Relationship Specialty Start Date End Date Unallocated, Noms Gilda, [address] [place] [address] PCP - General Family Medicine 08/03/24 documented as of this encounter
--- OUTSIDE RECORDS SUMMARY | 2025-06-15 11:01 | XMS_ITS | Encounter Summary ---
Author Organization [facility] Address [address] [place] [address] Care Team Providers Care Ada Accommodation Consultant Name Role Phone Unallocated, Noms Provider Primary Care Provi krissy Encounter Details Date Type Department Care Team (Late st Contact Info) Description 06/12/2025 Bamboo flowsheet [facility]JUN PANG [address] [facility] [place] [address] Rossana Ramos PA [facility] [address] [place], [facility]11 Social History Tobacco Use Types Packs/Day [...] 2:30 PM EDT Routine [facility]May PANG [address] [facility] [place] [address] Michael, Jose, [address] [place]ué [place] [address] documented as of this encounter Visit Diagnoses Not on filedocumented in this encounter Care Teams Ada Accommodation Consultant Relationship Specialty Start Date End Date Unallocated, Noms Provider, [place] [address] PCP - General Family Medicine 08/03/24 documented as of this encounter
--- OUTSIDE RECORDS SUMMARY | 2025-06-15 11:01 | XMS_ITS | Encounter Summary ---
Author Organization [facility] Address [address] [place] [address] Care Team Providers Care Immunology Specialist Name Role Phone Unallocated, Noms Provider Primary Care Provi krissy Encounter Details Date Type Department Care Team (Late st Contact Info) Description 08/10/2024 Abstract ARJUN PANG [facility] [place] [address] Jose Rodriguez DO [address] [place], [place] [address] Social History Tobacco Use Types Packs/Day Years [...] ARJUN PANG [facility] [place] [address] Jose Rodriguez DO [address] [place], [facility]11 documented as of this encounter Visit Diagnoses Not on filedocumented in this encounter Care Teams Immunology Specialist Relationship Specialty Start Date End Date Unallocated, Noms Provider, [address] [place] [address] PCP - General Family Medicine 08/03/24 documented as of this encounter
--- OUTSIDE RECORDS SUMMARY | 2025-06-15 11:01 | XMS_ITS | Clinical Summary ---
Author Organization [facility] tem Address [id number] [address] [place] [address] Care Team Providers Care Calibration Technician Name Role Phone Unavailable Primary Care [...] - 06/11/2025 11:59 PM EDT Hospital Encounter [facility] US Imaging [address] [place] [address] Poor growth affecting management of mother in third trimester, single or unspecified fetus; Gestational diabetes mellitus (GDM) in third trimester, gestational diabetes method of control unspecified Discharge Disposition: Home 06/11/2025 Travel 06/09/2025 Travel 06/05/2025 Telephone Maternal- Medicine at [facility] [address] [place] [address] 06/04/2025 2:00 PM EDT Telemedicine Maternal- Medicine at [facility] [address] [place] [address] Chris Martin MD Poor growth affecting management of mother in third trimester, single or unspecified fetus (Primary Dx) 06/04/2025 12:41 PM EDT - 06/04/2025 11:59 PM EDT Hospital Encounter [facility] - Ultrasound [address] [place] [address] Mackenzie Rodriguez, Screening, , for anatomic survey Discharge Disposition: Home 06/04/2025 Orders Only Maternal- Medicine at [place] [address] [place] [address] Marii Yoo RN Poor growth affecting management of mother in third trimester, single or unspecified fetus (Primary Dx); Gestational diabetes mellitus (GDM) in third trimester, gestational diabetes method of control unspecified 06/04/2025 Travel 05/31/2025 Orders Only Maternal- Medicine at [place] [address] [place] [address] Ref Prov, Not In System 05/31/2025 Abstract Maternal- Medicine at [address] [address] External, Scanning Provider 05/28/2025 Telephone Maternal- Medicine at [facility] [address] [place] [address] Chante Muse, ILEANA 05/21/2025 Telephone Maternal- Medicine at [place] [address] [place] [address] Chante Muse, ILEANA 05/13/2025 1:30 PM EDT Support Visit Maternal- Medicine at [facility] [address] [place] [address] Marjorie Rico RN Xneia Rayo, ALEC Gestational diabetes mellitus (GDM) in third trimester, gestational diabetes method of control unspecified 05/13/2025 Travel 05/10/2025 Abstract Maternal- Medicine at [facility] [address] [place] [address] External, Scanning Provider from Last 3 Months [...] Info) Description 06/18/2025 3:30 PM EDT Appointment [facility] US Imaging [address] [place] [address] 06/24/2025 2:15 PM EDT Appointment Maternal Medicine [place] [address] [place] [address] Health Maintenance Due Date Last [...] trimester, gestational diabetes method of control unspecified [facility] COMPREHENSIVE ANATOMIC SURVEY Routine 06/04/2025 3:06 PM [...] from Last 3 Months Results * US [facility] LMTD OB, 1 OR MORE FETUS (06/11/2025 8:39 AM EDT) Only the most recent of2 resultswithin the time period is included. Anatomical Region Laterality Modality OB-PRINTING TABLE HAND Ultrasound 06/11/2025 8:10 AM EDT Narrative 06/11/2025 10:28 AM EDT NAME: JERICA CELIS : 2000 SEX: F Accession Number: [id number] ORDERING PHYSICIAN: CHRIS MARTIN REFERRING PHYSICIAN: MACKENZIE RODRIGUEZ Coding ----- --------- Procedures 28579: Limited OB / DANYA, 1 or More Fetuses 55674: Doppler velocimetry, ; umbilical artery Indication ----- [...] today's exam. Recommendations ----- --------- Please see [facility] recommendations from prior clinical and/or ultrasound report documentation. The patient is scheduled for weekly Dopplers. The patient is scheduled in two weeks for growth ultrasound and Dopplers. Continue testing as previously recommended. Subsequent follow up or other follow up as clinically determined by primary OB provider unless otherwise specified by [facility]. Results forwarded to ordering provider so they can follow up with the patient as necessary. Procedure Note Maria Luisa Patel MD - 06/11/2025 NAME: JERICA CELIS : 2000 SEX: F Accession Number: [id number] ORDERING PHYSICIAN: CHRIS MARTIN REFERRING PHYSICIAN: MACKENZIE RODRIGUEZ Coding ----- --------- Procedures 86447: Limited OB / DANYA, 1 or More Fetuses [address]72: Doppler velocimetry, ; umbilical artery Indication ----- [...] today's exam. Recommendations ----- --------- Please see [facility] recommendations from prior clinical and/or ultrasoundreport [...] ORDERABLES Final Resul t Performing Organization Address [facility] de Phone Number MANUALLY TRANSCRIBED RESULTS * 2nd hr Glucose Tolerance 100 gm load (05/04/2025) Glucose Tolerance Test 2 Hour 186 MANUALLY TRANSCRIBED RESULTS Blood Venous blood / Unknown us Not In System Ref Prov LAB BLOOD ORDERABLES Kayli l Result Performing Organization Address [facility] Co de Phone Number MANUALLY TRANSCRIBED RESULTS * Glucose tolerance, 1 hour (05/04/2025) Glucose Tolerance Test 1 Hour 234 MANUALLY TRANSCRIBED RESULTS Blood Venous blood / Unknown us Not In System Ref Prov LAB BLOOD ORDERABLES Kayli l Result Performing Organization Address [facility]/ZIP Co de Phone Number MANUALLY TRANSCRIBED [...] ORDERABLES Kayli l Result Performing Organization Address [facility] Co de Phone Number MANUALLY TRANSCRIBED RESULTS * Glucose 1h post 50g load (04/27/2025) Glucose, 1 hr PP 50GM dose 171 MANUALLY TRANSCRIBED RESULTS Blood Venous blood / Unknown us Not In System Ref Prov LAB BLOOD ORDERABLES Kayli l Result Performing Organization Address [facility] Co de Phone Number MANUALLY TRANSCRIBED RESULTS from Last 3 Months Insurance [facility]
--- OUTSIDE RECORDS SUMMARY | 2025-06-15 11:01 | XMS_ITS | Patient Health Record ---
Author Organization [facility] in [place] Address [address] [place] [address] Care Team Providers Care Program Evaluation Consultant Name Role Phone Mariia Seeela Primary Care Provider [phone] Allergies No Known Allergies Results Component Value Reference Range Notes CBC AUTO DIFF Reviewed date:07/23/2024 08:22:00 AM Interpretation: Performing Lab: Notes/Report: [facility] , White Blood Count 10.6 4.0-11.0 [...] Performing Lab: see note ML - [facility] LB DRUG SCREEN RAPID (URINE) Reviewed date:07/23/2024 08:22:00 AM Interpretation: Performing Lab: Notes/Report: REEFLEX IF POSITIVE [facility] , Cannabinoid Screen Urine NEGATIVE NEGATIVE [...] Performing Lab: see note ML - [facility] LB GLYCOHEMOGLOBIN A1C Reviewed date:07/23/2024 08:22:00 AM Interpretation: Performing Lab: Notes/Report: [facility] , Glycohemoglobin A1C 4.9 4.5-6.2 % ADA RECOMMENDED LIMIT 4.0 - 6.0 ADA THERAPEUTIC TARGET < 7.0 ACTION SUGGESTED > 7.0 Estimated Average Glucose 94 Performing Lab: see note ML - [facility] LB CBC AUTO DIFF Reviewed date:01/07/2025 01:05:16 PM Interpretation: Performing Lab: Notes/Report: [facility] , White Blood Count 9.2 4.0-11.0 [...] 10 3/uL Performing Lab: see note - [facility] GLYCOHEMOGLOBIN A1C Reviewed date:01/07/2025 01:05:16 PM Interpretation: Performing Lab: Notes/Report: [facility] , Glycohemoglobin A1C 5.0 4.5-6.2 % ADA RECOMMENDED LIMIT 4.0 - 6.0 ADA THERAPEUTIC TARGET < 7.0 ACTION SUGGESTED > 7.0 Estimated Average Glucose 97 Performing Lab: see note - [facility] Urine Culture, Routine Reviewed date:01/07/2025 01:05:16 PM Interpretation: Performing Lab: Notes/Report: [facility] , Urine Culture, Routine See Below For Report Urine Culture, Routine Urine Culture, Routine Mixed urogenital tami Urine Culture, Routine Urine Culture, Routine 50,000-100,000 colony forming units per mL Urine Culture, Routine Urine Culture, Routine Performed at: - [facility] [place] Urine Culture, Routine Urine Culture, Routine [address] [place], [place] [id number] Urine Culture, Routine Urine Culture, Routine Child And Adolescent Psychiatrist: Andrew Harris PhD, Phone: [phone] Urine Culture, Routine Performing Lab: see note LC - [facility] LB SEE REPORT - Trial Judge Id information not found for OBX-specific music producer legend IGP,Aptima HPV,Age Gdln Reviewed date:02/25/2025 03:13:18 PM Interpretation: Performing Lab: Notes/Report: SPATULA-ALONE ENDOCERVIX [facility] , Age Gdln ACOG Testing Note . TESTS RESULT FLAG UNITS REF RANGE LAB Clinician Provided Cytology Information Source.............Endo cervix No. of containers..01 ThinPrep Vial Age Algo ACOG Yris... - 01 FLAG LEGEND: L-Low Normal,H-High Normal,LL-Alert Low,HH-Alert High <-Panic Low,>-Panic High,A-Abnormal,AA-Crit ical Abnormal Performed at: 01 =G [facility] [address] Jenise Byrne MD, IGP, rfx Aptima HPV ASCU Note . TESTS RESULT FLAG UNITS REF RANGE LAB DIAGNOSIS: 02 NEGATIVE FOR INTRAEPITHELIAL LESION OR MALIGNANCY. Specimen adequacy: 02 Satisfactory for evaluation. Endocervical and/or squamous metaplastic cells (endocervical component) are present. Performed by: Hussein Alvarez, Automatic Stacker ([facility]) . 02 Note: Note 02 The [...] Low,HH-Alert High <-Panic Low,>-Panic High,A-Abnormal,AA-Crit ical Abnormal Performed at: 02 WB [facility] [address] [place] [address] Jenise Byrne MD, Performed at: =G - [facility] [address] [id number] Child And Adolescent Psychiatrist: Jenise Byrne MD, Phone: [phone] Performed at: - [facility] [id number] Child And Adolescent Psychiatrist: Jenise Byrne MD, Phone: [phone] Performing Lab: see note LC - [facility] LB BUN Reviewed date:05/06/2025 10:03:33 AM Interpretation: Performing Lab: Notes/Report: [facility] , Blood Urea Nitrogen 8.0 7.0-18.0 mg/dL Performing Lab: see note ML - [facility] LB CREATININE Reviewed date:05/06/2025 10:03:33 AM Interpretation: Performing Lab: Notes/Report: [facility] , Creatinine 0.37 0.55-1.02 mg/dL Estimated GFR ( Ashley >60 >=60 mL/min/1.73m 2 Estimated GFR (Non- Hortencia >60 >=60 mL/min/1.73m 2 Performing Lab: see note ML - [facility] LB LDH Reviewed date:05/06/2025 10:03:33 AM Interpretation: Performing Lab: Notes/Report: [facility] , Lactate Dehydrogenase 163 81-234 U/L Performing Lab: see note ML - [facility] LB SGOT Reviewed date:05/06/2025 10:03:33 AM Interpretation: Performing Lab: Notes/Report: [facility] , Aspartate Amino Transferase 23 15-37 U/L Performing Lab: see note ML - [facility] LB URIC ACID SERUM Reviewed date:05/06/2025 10:03:33 AM Interpretation: Performing Lab: Notes/Report: [facility] , Uric Acid 3.7 2.6-6.0 mg/dL Performing Lab: see note ML - [facility] LB Total Protein 24 Hour Urine Reviewed date:05/07/2025 09:01:34 AM Interpretation: Performing Lab: Notes/Report: [facility] , Total Protein Urine Random <6.0 <=11.9 mg/dL Total Volume 24 Hour Urine 3700 Performing Lab: see note ML - [facility] LB US OB BPP w non-stress Reviewed date:05/13/2025 12:03:41 PM Interpretation: Performing Lab: Notes/Report: Source Facility: [facility]-[address] [place] [address] [place] [address] Ultrasound Report Signed Patient: VIMAL FUNES MR#: [id number] : 2000 Acct:[id number] Age/Sex: 25 / F ADM Date: 05/11/25 Loc: [facility] 253-[address]: Rossana Leach Ordering Physician: Rossana Leach Date of Service: 05/11/25 Procedure(s): US OB BPP w non-stress Accession Number(s): [id number] cc: Rossana Leach; JENNIFER SEE [place] [id number] Patient Name: VIMAL FUNES MRN: [id number] date: 2000 Sex: F Assigned Patient Location: [facility] Current Patient Location: [facility] Accession/Order Number: [id number] Exam Date: 05/11/2025 12:01 Report Date: 05/11/2025 12:02 At the request of: ROSSANA LEACH Procedure: US OB BPP w non-stress Biophysical profile. Reason for exam: Gestational diabetes COMPARISON: 05/04/2025 TECHNIQUE: Transabdominal imaging of the gravid uterus was obtained. FINDINGS: The residential tech reports a BPP of 8 out of 8. DANYA is normal at 11.9 cm. heart rate 138 bpm. US/US OB BPP w non-stress IMPRESSION: BPP 8 out of 8. Impression dictated by: Bulmaro Arias Jr., D.O. 05/11/2025 12:02 PM Dictation Location: [place] [address] Electronically authenticated by: [id number] Y Date: 05/11/2025 12:02 Dictated By: Bulmaro Arias M.D. Signed By: 05/11/25 1204 DD/ 1202 TD/TT: Rejector: [place] Reviewed date:05/20/2025 11:23:08 AM Interpretation: Performing Lab: Notes/Report: [facility] , Blood Urea Nitrogen 9.0 7.0-18.0 mg/dL Performing Lab: see note ML - [facility] LB CBC AUTO DIFF Reviewed date:05/20/2025 11:23:08 AM Interpretation: Performing Lab: Notes/Report: [facility] , White Blood Count 15.0 4.0-11.0 [...] Performing Lab: see note ML - [facility] CREATININE Reviewed date:05/20/2025 11:23:08 AM Interpretation: Performing Lab: Notes/Report: [facility] , Creatinine 0.38 0.55-1.02 mg/dL Estimated GFR ( Ashley >60 >=60 mL/min/1.73m 2 Estimated GFR (Non- Hortencia >60 >=60 mL/min/1.73m 2 Performing Lab: see note - [facility] LB LDH Reviewed date:05/20/2025 11:23:08 AM Interpretation: Performing Lab: Notes/Report: [facility] , Lactate Dehydrogenase 147 81-234 U/L Performing Lab: see note - [facility] LB PTT Reviewed date:05/20/2025 11:23:08 AM Interpretation: Performing Lab: Notes/Report: [facility] , Partial Thromboplastin Time 25.6 22.3-36.2 sec Performing Lab: see note ML - [facility] LB SGOT Reviewed date:05/20/2025 11:23:08 AM Interpretation: Performing Lab: Notes/Report: [facility] , Aspartate Amino Transferase 18 15-37 U/L Performing Lab: see note ML - [facility] LB URIC ACID SERUM Reviewed date:05/20/2025 11:23:08 AM Interpretation: Performing Lab: Notes/Report: [facility] , Uric Acid 4.0 2.6-6.0 mg/dL Performing Lab: see note ML - [facility] LB Prothrombin Time INR Reviewed date:05/20/2025 11:23:08 AM Interpretation: Performing Lab: Notes/Report: [facility] , Prothrombin Time 10.2 9.0-11.6 sec INR 0.96 DESIRED INR: 2.0-3.0 CONDITIONS NOT LISTED BELOW 2.5-3.5 FOR PROSTHETIC HEART VALVE REPLACEMENT 2.5-3.5 RECURRENT THROMBOSIS Performing Lab: see note ML - [facility] US OB BPP w non-stress Reviewed date:05/20/2025 11:23:08 AM Interpretation: Performing Lab: Notes/Report: Source Facility: [place] [address] Ultrasound Report Signed Patient: VIMAL FUNES MR#: [id number] : 2000 Acct:[id number] Age/Sex: 25 / F ADM Date: 05/18/25 Loc: US Attending Dr: Rossana Leach Ordering Physician: Rossana Leach Date of Service: 05/18/25 Procedure(s): US OB BPP w non-stress Accession Number(s): [id number] cc: JENNIFER Watkins [place] [address] Patient Name: VIMAL FUNES MRN: [id number] date: 2000 Sex: F Assigned Patient Location: [facility] Current Patient Location: Accession/Order Number: [id number] Exam Date: 05/18/2025 11:16 Report Date: 05/18/2025 [...] Acharya M.D. 05/18/2025 5:08 PM Dictation Location: [place] [address] Electronically authenticated by: [id number] Y Date: 05/18/2025 17:08 Dictated By: Heriberto Acharya M.D. Signed By: 05/18/252016 DD/ 07 TD/TT: Rejector: Total Protein 24 Hour Urine Reviewed date:05/21/2025 08:48:02 AM Interpretation: Performing Lab: Notes/Report: [facility] , Total Protein Urine Random 6.7 <=11.9 mg/dL Total Volume 24 Hour Urine 2900 Total Protein 24 Hour Urine 194.3 <=149.1 mg/24hr Performing Lab: see note ML - [facility] US OB BPP w non-stress Reviewed date:05/28/2025 11:03:16 AM Interpretation: Performing Lab: Notes/Report: Source Facility: [facility]-[address] [place] [address] [place] [address] Ultrasound Report Signed Patient: VIMAL FUNES MR#: [id number] : 2000 Acct:[id number] Age/Sex: 25 / F ADM Date: 05/25/25 Loc: US Attending Dr: Rossana Leach Ordering Physician: Rossana Leach Date of Service: 05/25/25 Procedure(s): US OB BPP w non-stress Accession Number(s): [id number] cc: Rossana Leach; JENNIFER SEE [place] [id number] Patient Name: VIMAL FUNES MRN: [id number] date: 2000 Sex: F Assigned Patient Location: [facility] Current Patient Location: Accession/Order Number: [id number] Exam Date: 05/25/2025 08:21 Report Date: 05/25/2025 [...] Acharya M.D. 05/25/2025 11:13 AM Dictation Location: [place] [address] Electronically authenticated by: [id number] Y Date: 05/25/2025 11:13 Dictated By: Heriberto Acharya M.D. Signed By: 05/25/25 1116 DD/ 1113 TD/TT: Rejector: US OB BPP w non-stress Reviewed date:06/03/2025 09:38:37 AM Interpretation: Performing Lab: Notes/Report: Source Facility: [facility]-[address] [place] [address] Ultrasound Report Signed Patient: VIMAL FUNES MR#: [id number] : 2000 Acct:[id number] Age/Sex: 25 / F ADM Date: 06/01/25 Loc: US Attending Dr: Rossana Leach Ordering Physician: Rossana Leach Date of Service: 06/01/25 Procedure(s): US OB BPP w non-stress Accession Number(s): [id number] cc: Rossana Leach; JENNIFER SEE [place] [address] Patient Name: VIMAL FUNES MRN: [id number] date: 2000 Sex: F Assigned Patient Location: Current Patient Location: Accession/Order Number: [id number] Exam Date: 06/01/2025 10:59 Report Date: 06/01/2025 12:03 At the request of: ROSSANA LEACH Procedure: US OB BPP w non-stress Biophysical profile. Reason for exam: Gestational diabetes COMPARISON: 05/25/2025 TECHNIQUE: Transabdominal imaging of the gravid uterus was obtained. FINDINGS: The residential tech reports a BPP of 8 out of 8. DANYA is normal at 11.0 cm. Cardiac activity was visualized by the residential tech per tech note. No heart rate was documented. US/US OB BPP w non-stress IMPRESSION: BPP 8 out of 8. Impression dictated by: Bulmaro Arias Jr., D.O. 06/01/2025 12:03 PM Dictation Location: [place] [address] Electronically authenticated by: [id number] Y Date: 06/01/2025 12:03 Dictated By: Bulmaro Arias M.D. Signed By: 06/01/25 1206 DD/ 1203 TD/TT: Rejector: US OB BPP w non-stress Reviewed date:06/10/2025 10:40:51 AM Interpretation: Performing Lab: Notes/Report: Source Facility: [place] [address] Ultrasound Report Signed Patient: VIMAL FUNES MR#: [id number] : 2000 Acct:[id number] Age/Sex: 25 / F ADM Date: 06/08/25 Loc: US Attending Dr: Rossana Leach Ordering Physician: Rossana Leach Date of Service: 06/08/25 Procedure(s): US OB BPP w non-stress Accession Number(s): [id number] cc: Rossana Leach; JENNIFER SEE [place] [id number] Patient Name: VIMAL FUNES MRN: [id number] date: 2000 Sex: F Assigned Patient Location: [facility] Current Patient Location: Accession/Order Number: [id number] Exam Date: 06/08/2025 11:01 Report Date: 06/08/2025 [...] Knapp M.D. 06/08/2025 12:10 PM Dictation Location: [place] [address] Electronically authenticated by: [id number] Y Date: 06/08/2025 12:10 Dictated By: Shivam Knapp D.O. Signed By: 06/08/25 1213 DD/ 1210 TD/TT: Rejector: US OB growth Reviewed date:05/06/2025 10:03:33 AM Interpretation: Performing Lab: Notes/Report: Source Facility: [facility]-[address] [place] [address] [place] [address] Ultrasound Report Signed Patient: VIMAL FUNES MR#: [id number] : 2000 Acct:[id number] Age/Sex: 25 / F ADM Date: 05/04/25 Loc: [facility] 250-[address]: Rossana Leach Ordering Physician: Rossana Leach Date of Service: 05/04/25 Procedure(s): US OB growth Accession Number(s): [id number] cc: Rossana Leach; JENNIFER SEE [place] [address] Patient Name: VIMAL FUNES MRN: [id number] date: 2000 Sex: F Assigned Patient Location: [facility] Current Patient Location: [facility] Accession/Order Number: [id number] Exam Date: 05/04/2025 12:06 Report Date: 05/04/2025 [...] circumference and estimated weight. Impression dictated by: Bulmrao rAias Jr., D.O. 05/04/2025 12:08 PM Dictation Location: [place] [address] Electronically authenticated by: [id number] Y Date: 05/04/2025 12:08 Dictated By: Bulmaro Arias M.D. Signed By: 05/04/25 1211 DD/ 1208 TD/TT: Rejector: US OB BPP w non-stress Reviewed date:05/06/2025 10:03:33 AM Interpretation: Performing Lab: Notes/Report: Source Facility: [facility]-[address] [place] [address] Ultrasound Report Signed Patient: VIMAL FUNES MR#: [id number] : 2000 Acct:[id number] Age/Sex: 25 / F ADM Date: 05/04/25 Loc: [facility] 250-[address]: Rossana Leach Ordering Physician: Rossana Leach Date of Service: 05/04/25 Procedure(s): US OB BPP w non-stress Accession Number(s): [id number] cc: Rossana Leach; JENNIFER SEE [place] [phone] Patient Name: VIMAL FUNES MRN: [id number] date: 2000 Sex: F Assigned Patient Location: [facility] Current Patient Location: [facility] Accession/Order Number: [id number] Exam Date: 05/04/2025 12:08 Report Date: 05/04/2025 12:09 At the request of: ROSSANA LEACH Procedure: US OB BPP w non-stress Biophysical profile. Reason for exam: Gestational diabetes COMPARISON: None TECHNIQUE: Transabdominal imaging of the gravid uterus was obtained. FINDINGS: The residential tech reports a BPP of 8 out of 8. DANYA is normal at 12.4 cm. heart rate 150 bpm. US/US OB BPP w non-stress IMPRESSION: BPP 8 out of 8. Impression dictated by: Bulmaro Arias Jr., D.O. 05/04/2025 12:09 PM Dictation Location: [place] [address] Electronically authenticated by: [id number] Y Date: 05/04/2025 12:09 Dictated By: Bulmaro Arias M.D. Signed By: 05/04/25 1212 DD/ 1209 TD/TT: Rejector: Glucose Tolerance 3 Hour Reviewed date:05/06/2025 10:03:33 AM Interpretation: Performing Lab: Notes/Report: [facility] , Glucose Tolerance 3 Hour GLU FAST 108H (<95) Col: 05/04/25 0723 GLU 1HR 234H (<180) Col: 05/04/25 0826 GLU 2HR 186H (<155) Col: 05/04/25 0927 GLU 3HR 133 (<140) Col: 05/04/25 1028 Performing Lab: see note ML - [facility] LB Prothrombin Time INR Reviewed date:05/06/2025 10:03:33 AM Interpretation: Performing Lab: Notes/Report: [facility] , Prothrombin Time 10.1 9.0-11.6 sec INR 0.95 DESIRED INR: 2.0-3.0 CONDITIONS NOT LISTED BELOW 2.5-3.5 FOR PROSTHETIC HEART VALVE REPLACEMENT 2.5-3.5 RECURRENT THROMBOSIS Performing Lab: see note - [facility] LB PTT Reviewed date:05/06/2025 10:03:33 AM Interpretation: Performing Lab: Notes/Report: [facility] , Partial Thromboplastin Time 25.7 22.3-36.2 sec Performing Lab: see note ML - [facility] LB CBC AUTO DIFF Reviewed date:05/06/2025 10:03:33 AM Interpretation: Performing Lab: Notes/Report: [facility] , White Blood Count 12.5 4.0-11.0 [...] Performing Lab: see note ML - [facility] LB Glucose 1 Hour Reviewed date:04/29/2025 09:37:12 AM Interpretation: Performing Lab: Notes/Report: [facility] , Glucose 1 Hour 171 <130 mg/dL Performing Lab: see note ML - [facility] LB CBC AUTO DIFF Reviewed date:04/29/2025 09:37:12 AM Interpretation: Performing Lab: Notes/Report: [facility] , White Blood Count 12.5 4.0-11.0 [...] Performing Lab: see note ML - [facility] LB US OB incomplete anatomy Reviewed date:03/25/2025 09:01:39 AM Interpretation: Performing Lab: Notes/Report: Source Facility: [place] [address] Ultrasound Report Signed Patient: VIMAL FUNES MR#: [id number] : 2000 Acct:[id number] Age/Sex: 24 / F ADM Date: 03/23/25 Loc: US Attending Dr: Mackenzie Rodriguez D.O. Ordering Physician: Mackenzie Rodriguez D.O. Date of Service: 03/23/25 Procedure(s): US OB incomplete anatomy Accession Number(s): [id number] cc: JENNIFER SEE ; Mackenzie Rodriguez D.O. [place] [address] Patient Name: VIMAL FUNES MRN: [id number] date: 2000 Sex: F Assigned Patient Location: US Current Patient Location: US Accession/Order Number: [id number] Exam Date: 03/25/2025 08:23 Report Date: 03/25/2025 [...] Brown M.D. 03/25/2025 8:25 AM Dictation Location: [place] [address] Electronically authenticated by: [id number] Y Date: 03/25/2025 08:25 Dictated By: Meghana Brown M.D. Signed By: 03/25/25826 DD/ 4 TD/TT: Rejector: US OB anatomy Reviewed date:03/14/2025 10:39:54 AM Interpretation: Performing Lab: Notes/Report: Source Facility: [place] [address] Ultrasound Report Signed Patient: VIMAL FUNES MR#: [id number] : 2000 Acct:[id number] Age/Sex: 24 / F ADM Date: 03/08/25 Loc: US Attending Dr: Mackenzie Rodriguez D.O. Ordering Physician: Mackenzie Rodriguez D.O. Date of Service: 03/08/25 Procedure(s): US OB anatomy Accession Number(s): [id number] cc: JENNIFER SEE ; Mackenzie Rodriguez D.O. [place] [address] Patient Name: VIMAL FUNES MRN: [id number] date: 2000 Sex: F Assigned Patient Location: US Current Patient Location: US Accession/Order Number: [id number] Exam Date: 03/08/2025 20:31 Report Date: 03/08/2025 [...] Knapp M.D. 03/08/2025 8:36 PM Dictation Location: [place] [address] Electronically authenticated by: [id number] Y Date: 03/08/2025 20:36 Dictated By: Shivam Knapp D.O. Signed By: 03/08/252037 DD/ 35 TD/TT: Rejector: US OB cervical length Reviewed date:03/14/2025 10:39:54 AM Interpretation: Performing Lab: Notes/Report: Source Facility: [place] [address] Ultrasound Report Signed Patient: VIMAL FUNES MR#: [id number] : 2000 Acct:[id number] Age/Sex: 24 / F ADM Date: 03/08/25 Loc: US Attending Dr: Mackenzie Rodriguez D.O. Ordering Physician: Mackenzie Rodriguez D.O. Date of Service: 03/08/25 Procedure(s): US OB cervical length Accession Number(s): [id number] cc: JENNIFER SEE ; Mackenzie Rodriguez D.O. [place] [address] Patient Name: VIMAL FUNES MRN: [id number] date: 2000 Sex: F Assigned Patient Location: US Current Patient Location: US Accession/Order Number: [id number] Exam Date: 03/08/2025 20:31 Report Date: 03/08/2025 [...] Knapp M.D. 03/08/2025 8:36 PM Dictation Location: [employer] Electronically authenticated by: [id number] Y Date: 03/08/2025 20:36 Dictated By: Shivam Knapp D.O. Signed By: 03/08/252037 DD/ 35 TD/TT: Rejector: Box Test Reviewed date:01/07/2025 01:05:16 PM Interpretation: Performing Lab: Notes/Report: [facility] , BOX Test Sent Out [employer] BOX Test Reference Lab [employer] BOX Test Date Sent 01-05-25 Performing Lab: see note [facility] LB HCV Antibody RFX to Quant PC R Reviewed date:01/07/2025 01:05:16 PM Interpretation: Performing Lab: Notes/Report: [facility] , HCV Ab Non Reactive Non Reactive Interpretation: Comment . Not infected with HCV unless early or acute infection is suspected (which may be delayed in an immunocompromised individual), or other evidence exists to indicate HCV infection. Performed at: [address] [id number] Child And Adolescent Psychiatrist: Andrew Harris PhD, Phone: [phone] Performing Lab: see note - [facility] LB HIV Ab/p24 Ag with Reflex Reviewed date:01/07/2025 01:05:16 PM Interpretation: Performing Lab: Notes/Report: [facility] , HIV Ab/p24 Ag Screen Non Reactive Non Reactive HIV-1/HIV-2 antibodies and HIV-1 p24 antigen were NOT detected. There is no laboratory evidence of HIV infection. HIV Negative Performed at: [facility] [address] [id number] Child And Adolescent Psychiatrist: Andrew Harris PhD, Phone: [phone] Performing Lab: see note [facility] LB Type and Screen Reviewed date:01/07/2025 01:05:16 PM Interpretation: Performing Lab: Notes/Report: [facility] , Blood Type A Positive Antibody Screen NEGATIVE RUBELLA AB IGG Reviewed date:01/07/2025 01:05:16 PM Interpretation: Performing Lab: Notes/Report: [facility] , Rubella Antibodies, IgG 1.57 Immune >0.99 inde x Non-immune <0.90 Equivocal 0.90 - 0.99 Immune >0.99 Performed at: [address] [id number] Child And Adolescent Psychiatrist: Andrew Harris PhD, Phone: [phone] Performing Lab: see note [facility] DRUG SCREEN RAPID (URINE) Reviewed date:01/07/2025 01:05:16 PM Interpretation: Performing Lab: Notes/Report: [facility] , Cannabinoid Screen Urine NEGATIVE NEGATIVE [...] 300 ng/mL Performing Lab: see note - [facility] LB PREG QUANT HCG Reviewed date:11/22/2024 08:59:16 AM Interpretation: Performing Lab: Notes/Report: [facility] , HCG Quantitative 92879 5-50 0.2-1 WEEK 50-500 1-2 WEEKS 100-5,000 2-3 WEEKS 500-10,000 3-4 WEEKS 1,000-50,000 4-5 WEEKS 10,000-100,000 5-6 WEEKS 15,000-200,000 6-8 WEEKS 10,000-100,000 2-3 MONTHS Performing Lab: see note ML - [facility] PREG QUANT HCG Reviewed date:11/20/2024 01:38:35 PM Interpretation: Performing Lab: Notes/Report: [facility] , HCG Quantitative 6254 5-50 0.2-1 WEEK 50-500 1-2 WEEKS 100-5,000 2-3 WEEKS 500-10,000 3-4 WEEKS 1,000-50,000 4-5 WEEKS 10,000-100,000 5-6 WEEKS 15,000-200,000 6-8 WEEKS 10,000-100,000 2-3 MONTHS Performing Lab: see note ML - [facility] PREG QUANT HCG Reviewed date:08/20/2024 11:36:34 AM Interpretation: Performing Lab: Notes/Report: [facility] , HCG Quantitative 6 5-50 0.2-1 WEEK 50-500 1-2 WEEKS 100-5,000 2-3 WEEKS 500-10,000 3-4 WEEKS 1,000-50,000 4-5 WEEKS 10,000-100,000 5-6 WEEKS 15,000-200,000 6-8 WEEKS 10,000-100,000 2-3 MONTHS Performing Lab: see note ML - [facility] US OB transvaginal Reviewed date:08/10/2024 08:58:56 AM Interpretation: Performing Lab: Notes/Report: Source Facility: [facility]-[address] [place] [address] [place] [address] Ultrasound Report Signed Patient: VIMAL FUNES MR#: [id number] : 2000 Acct:[id number] Age/Sex: 24 / F ADM Date: 08/10/24 Loc: SURGOUT Attending Dr: Mackenzie Rodriguez D.O. Ordering Physician: Mackenzie Rodriguez D.O. Date of Service: 08/10/24 Procedure(s): US OB transvaginal Accession Number(s): [id number] cc: JENNIFER SEE ; Mackenzie Rodriguez D.O. [place] [address] Patient Name: VIMAL FUNES MRN: [id number] date: 2000 Sex: F Assigned Patient [facility] Current Patient Location: [facility] Accession/Order Number: [id number] Exam Date: 08/10/2024 08:10 Report Date: 08/10/2024 [...] Herrera M.D. Signed By: 08/10/2447 DD/ TD/TT: Rejector: PREG QUANT HCG Reviewed date:08/10/2024 08:58:56 AM Interpretation: Performing Lab: Notes/Report: [facility] , HCG Quantitative 240 5-50 0.2-1 WEEK 50-500 1-2 WEEKS 100-5,000 2-3 WEEKS 500-10,000 3-4 WEEKS 1,000-50,000 4-5 WEEKS 10,000-100,000 5-6 WEEKS 15,000-200,000 6-8 WEEKS 10,000-100,000 2-3 MONTHS Performing Lab: see note ML - [facility] LB CBC AUTO DIFF Reviewed date:08/10/2024 08:58:56 AM Interpretation: Performing Lab: Notes/Report: [facility] , White Blood Count 8.9 4.0-11.0 [...] Performing Lab: see note ML - [facility] LB US OB transvaginal Reviewed date:08/03/2024 08:30:13 AM Interpretation: Performing Lab: Notes/Report: Source Facility: [facility]-[address] [place] [address] [place] [address] Ultrasound Report Signed Patient: VIMAL FUNES MR#: [id number] : 2000 Acct:[id number] Age/Sex: 24 / F ADM Date: 08/02/24 Loc: ER Attending Dr: Ordering Physician: Kishan Cosby Date of Service: 08/02/24 Procedure(s): US OB transvaginal Accession Number(s): [id number] cc: JENNIFER SEE ; Kishan Cosby [place] [address] Patient Name: VIMAL FUNES MRN: [facility]:[id number] date: 2000 Sex: F Assigned Patient Location: ER Current Patient Location: ER Accession/Order Number: [id number] Exam Date: 08/02/2024 19:17 Report Date: 08/02/2024 [...] M.D. Signed By: 08/02/242126 DD/ 23 TD/TT: Rejector: PROF Oreilly(COMP METB) Reviewed date:08/03/2024 08:30:13 AM Interpretation: Performing Lab: Notes/Report: [facility] , Sodium 140 136-145 mmol/L Potassium [...] Performing Lab: see note ML - [facility] LB PREG QUANT HCG Reviewed date:08/03/2024 08:30:13 AM Interpretation: Performing Lab: Notes/Report: [facility] , HCG Quantitative 1656 5-50 0.2-1 WEEK 50-500 1-2 WEEKS 100-5,000 2-3 WEEKS 500-10,000 3-4 WEEKS 1,000-50,000 4-5 WEEKS 10,000-100,000 5-6 WEEKS 15,000-200,000 6-8 WEEKS 10,000-100,000 2-3 MONTHS Performing Lab: see note ML - [facility] LB CBC AUTO DIFF Reviewed date:08/03/2024 08:30:13 AM Interpretation: Performing Lab: Notes/Report: [facility] , White Blood Count 11.1 4.0-11.0 [...] 0.00-0.03 10 3/uL Performing Lab: see note [facility] LB HBsAg Screen Reviewed date:07/23/2024 08:22:00 AM Interpretation: Performing Lab: Notes/Report: [facility] , HBsAg Screen Negative Negative Performed at: [address] [id number] Child And Adolescent Psychiatrist: Andrew Harris PhD, Phone: [phone] Performing Lab: see note [facility] HCV Antibody RFX to Quant PC R Reviewed date:07/23/2024 08:22:00 AM Interpretation: Performing Lab: Notes/Report: [facility] , HCV Ab Non Reactive Non Reactive Interpretation: Comment . Not infected with HCV unless early or acute infection is suspected (which may be delayed in an immunocompromised individual), or other evidence exists to indicate HCV infection. Performing Lab: see note [facility] Rapid Plasma Reagin, Quant Reviewed date:07/23/2024 [...] utilized, such as Treponema pallidum (Syphilis) Screening [place] (918688) or Rapid Plasma Reagin (RPR) Test With Reflex to Quantitative RPR and Confirmatory Treponema pallidum Antibodies (279392). Performed at: [address] [id number] Child And Adolescent Psychiatrist: Andrew Harris PhD, Phone: [phone] Performing Lab: see note - [facility] LB HIV Ab/p24 Ag with Reflex Reviewed date:07/23/2024 08:22:00 AM Interpretation: Performing Lab: Notes/Report: [facility] , HIV Ab/p24 Ag Screen Non Reactive Non Reactive HIV-1/HIV-2 antibodies and HIV-1 p24 antigen were NOT detected. There is no laboratory evidence of HIV infection. HIV Negative Performed at: [address] [id number] Child And Adolescent Psychiatrist: Andrew Harris PhD, Phone: [phone] Performing Lab: see note [facility] LB Type and Screen Reviewed date:07/23/2024 08:22:00 AM Interpretation: Performing Lab: Notes/Report: [facility] , Blood Type A Positive Antibody Screen NEGATIVE RUBELLA AB IGG Reviewed date:07/23/2024 08:22:00 AM Interpretation: Performing Lab: Notes/Report: [facility] , Rubella Antibodies, IgG 1.57 Immune >0.99 inde x Non-immune <0.90 Equivocal 0.90 - 0.99 Immune >0.99 Performed at: [address] [id number] Child And Adolescent Psychiatrist: Andrew Harris PhD, Phone: [phone] Performing Lab: see note [facility] LB HBsAg Screen Reviewed date:01/07/2025 01:05:16 PM Interpretation: Performing Lab: Notes/Report: [facility] , HBsAg Screen Negative Negative Performed at: [address] [id number] Child And Adolescent Psychiatrist: Andrew Harris PhD, Phone: [phone] Performing Lab: see note [facility] LB Rapid Plasma Reagin, Quant Reviewed date:01/07/2025 [...] utilized, such as Treponema pallidum (Syphilis) Screening [place] (567105) or Rapid Plasma Reagin (RPR) Test With Reflex to Quantitative RPR and Confirmatory Treponema pallidum Antibodies (548716). Performed at: [address] [id number] Child And Adolescent Psychiatrist: Andrew Harris PhD, Phone: [phone] Performing Lab: see note [facility] Box Test Reviewed date:07/23/2024 08:22:00 AM Interpretation: Performing Lab: Notes/Report: [facility] , BOX Test Sent Out [facility] Test Reference Lab [place] BOX Test Date Sent 07/21/24 Performing Lab: see note [facility] LB Urine Culture, Routine Reviewed date:07/23/2024 08:22:00 AM Interpretation: Performing Lab: Notes/Report: [facility] , Urine Culture, Routine See Below For Report Urine Culture, Routine Urine Culture, Routine Mixed urogenital tami Urine Culture, Routine Urine Culture, Routine 10,000-25,000 colony forming units per mL Urine Culture, Routine Urine Culture, Routine Performed at: [facility] Urine Culture, Routine Urine Culture, Routine [address] [place] [phone] Urine Culture, Routine Urine Culture, Routine Child And Adolescent Psychiatrist: Andrew Harris PhD, Phone: [phone] Urine Culture, Routine Performing Lab: see note [facility] LB SEE REPORT - Trial Judge Id information not found for OBX-specific music producer legend Reason For Referral No Information Medications [...] ACCESS PPO PLUS LOCAL PLAN [address] [place] [phone] [id number] Vimal Funes Self - patient is the insured [employer] [place] [employer] [address] [place] [address] [phone] [id number] Vimal Funes Self - patient is the insured Medical (General) History Medical History History ICD Code lead poisoning Surgical History Surgery Date(Month/Year) ear tubes
== END 2025-06-15 12:47 | disposition home or self-care (01) ==
LOC: US 10:58 → FBC 12:04
PROVIDERS: PCP Nurse Practitioner Family; Visit Provider Physician Assistant
DX: O24.419 Gestational diabetes mellitus in pregnancy, unspecified control (principal); O99.283 Endocrine, nutritional and metabolic diseases complicating pregnancy, third trimester
CPT/HCPCS: 76818

== ENCOUNTER 2025-06-19 17:01 | Outpatient (OUT) | payer BC, OTHER, SELFPAY ==
--- OUTSIDE RECORDS SUMMARY | 2025-06-19 17:08 | XMS_ITS | CCD ---
Author Organization [facility] Care Team Providers Care Special Event Assistant Name Role Phone MICHAEL ., DR MANN [...] Unavailable MISC, DR DOMINIQUE Primary Care Unavailable [place], DR COCO Danielle Consulting Unavailable MICHAEL ., DR MANN Consulting Unavailable MICHAEL ., DR MANN Admitting Unavailable MICHAEL ., DR MANN Attending Unavailable MISC, DR DOMINIQUE Primary Care Unavailable MICHAEL ., DR MANN Consulting Unavailable MICHAEL ., DR MANN Admitting Unavailable MICHAEL ., DR MANN Attending Unavailable MISC, DR DOMINIQUE Primary Care Unavailable [place], DR COCO Danielle Consulting Unavailable MICHAEL [...] Referring Unavailable MANAS MARTIN Attending Unavailable MICHAEL, JSOE R Referring Unavailable MICHAEL, JOSE R Referring [...] Hypertension complicating ; childbirth and the puerperium (20 sources) -induced hypertension; Translations: [Gestational [-induced] hypertension [...] [34 weeks gestation of ] 06-12-2025 Episodic Residual codes; unclassified (2 sources) Gestation period, 35 weeks; Translations: [35 weeks gestation of ] 06-19-2025 Episodic Spontaneous (2 sources) Miscarriage; Translations: [Complete [...] Onset: 05-01-2022 Episodic Unclassified (1 source) [facility] SPCF DIS/COND COMPL ; Translations: [OT SPCF DIS/COND COMPL ] Onset: 04-27-2022 Urinary tract infections (5 sources) Urinary tract infection, site not specified; Translations: [UTI SITE NOT SPECIFIED] Onset: 05-10-2022 Episodic Viral infection (1 source) Viral infection, unspecified; Translations: [VIRAL INFECTION UNSPECIFIED] Onset: 07-07-2022 Episodic Results Test Name Value Interpretation Reference Range Facility Urinalysis macro (dipstick) panel (U)on 06-19-2025 Bilirubin, UA Negative Negative - 4(70) +++ mg/dL [facility] Blood, UA Negative Negative - 50 Jason/mcL [facility] Clarity, UA Cloudy [facility] re Color, UA Yellow [facility] Glucose, UA 1+ Negative - 1999(110) ++++ mg/dL [facility] Interpretation and review of laboratory results Abnormal [facility] Ketones, UA Negative Negative - 160(16) ++++ mg/dL [facility] Leukocytes, UA Negative Negative - 500+++ Carlos/mcL [facility] Nitrite, UA Negative Negative - Positive [facility] pH, UA 6 5 - 9 [facility] Protein, UA 1+ Negative - 1999(20) ++++ mg/dL [facility] Spec Grav, UA 1.015 1 - 1.03 [facility] care Urobilinogen, UA 1.0 0.2 - 12 mg/dL [facility] OB BPP W NON-STRESS on 06-15-[address] [address] Ultrasound Report Signed Patient: VIMAL FUNES MR#: [id number] : 2000 Acct:[id number] Age/Sex: 25 / F ADM Date: 06/15/25 Loc: [facility] 251-[address]: Rossana Ramos Ordering Physician: Rossana Ramos Date of Service: 06/15/25 Procedure(s): US OB BPP w non-stress Accession Number(s): [id number] cc: Rossana Ramos; JENNIFER SEE The [place] [id number] Patient Name: VIMAL FUNES MRN: [facility]:[id number] date: 2000 Sex: F Assigned Patient Location: US Current Patient Location: US Accession/Order Number: [id number] Exam Date: 06/15/2025 11:07 Report Date: 06/15/2025 12:51 At the request of: ROSSANA RAMOS Procedure: US OB BPP w non-stress Biophysical profile. Reason for exam: Gestational diabetes COMPARISON: 06/08/2025 TECHNIQUE: Transabdominal imaging of the gravid uterus was obtained. FINDINGS: The manager intensive care reports a BPP of 8 out of 8. DANYA is normal at 11.0 cm. heart rate 136 bpm. US/US OB BPP w non-stress IMPRESSION: BPP 8 out of 8. Impression dictated by: Amadou Carias M.D. 06/15/2025 12:51 PM Dictation Location: [place] [address] Electronically authenticated by: [id number] Y Date: 06/15/2025 12:51 Dictated By: Amadou Carias M.D. Signed By: 06/15/25 1254 DD/ 1251 TD/TT: Slot Key Person: [facility] Radiology, Radiologist, MD - 06/15/2025 [place] [address] Ultrasound Report Signed Patient: VIMAL FUNES MR#: [id number] : 2000 Acct:[id number] Age/Sex: 25 / F ADM Date: 06/15/25 Loc: [facility] [address]: Rossana Ramos Ordering Physician: Rossana Ramos Date of Service: 06/15/25 Procedure(s): US OB BPP w non-stress Accession Number(s): [id number] cc: Rossana Ramos; JENNIFER SEE [place] [id number] Patient Name: VIMAL FUNES MRN: [id number]:[id number] date: 2000 Sex: F Assigned Patient Location: US Current Patient Location: US Accession/Order Number: [id number] Exam Date: 06/15/2025 11:07 Report Date: 06/15/2025 12:51 At the request of: ROSSANA RAMOS Procedure: US OB BPP w non-stress Biophysical profile. Reason for exam: Gestational diabetes COMPARISON: 06/08/2025 TECHNIQUE: Transabdominal imaging of the gravid uterus was obtained. FINDINGS: The manager intensive care reports a BPP of 8 out of 8. DANYA is normal at 11.0 cm. heart rate 136 bpm. US/US OB BPP w non-stress IMPRESSION: BPP 8 out of 8. Impression dictated by: Amadou Carias M.D. 06/15/2025 12:51 PM Dictation Location: [place] [address] Electronically authenticated by: [id number] Y Date: 06/15/2025 12:51 Dictated By: Amadou Carias M.D. Signed By: 06/15/25 1254 DD/ 1251 TD/TT: Slot Key Person: [facility] Radiology Study observation (narrative) [facility] OB BPP W NON-STRESS Ordered By: Radiologist Radiology on 06-15-2025 [facility] [employer] Work Phone: Urinalysis macro (dipstick) panel (U)on 06-12-2025 Bilirubin, UA Negative Negative - 4(70) +++ mg/dL [facility] Blood, UA Negative Negative - 50 Jason/mcL [facility] Clarity, UA Clear [facility], UA Yellow [facility] Glucose, UA Positive Negative - 2000(110) ++++ mg/dL [facility] Interpretation and review of laboratory results Abnormal [facility] Ketones, UA Negative Negative - 160(16) ++++ mg/dL [facility] Leukocytes, UA Negative Negative - 500+++ Carlos/mcL [facility] Nitrite, UA Negative Negative - Positive [facility] pH, UA 6.5 5 - 9 [facility] Protein, UA Negative Negative - 1999(20) ++++ mg/dL [facility] Spec Grav, UA 1.015 1 - 1.03 [facility] care Urobilinogen, UA 1.0 0.2 - 12 mg/dL [facility] US OB BPP W NON-STRESS on 06-08-2025 [place] [address] Ultrasound Report Signed Patient: VIMAL FUNES MR#: [id number] : 2000 Acct:[id number] Age/Sex: 25 / F ADM Date: 06/08/25 Loc: US Attending Dr: Rossana Ramos Ordering Physician: Rossana Ramos Date of Service: 06/08/25 Procedure(s): US OB BPP w non-stress Accession Number(s): [id number] cc: Rossana Ramos; JENNIFER SEE [place] [address] Patient Name: VIMAL FUNES MRN: [facility]:[id number] date: 2000 Sex: F Assigned Patient Location: [facility] Current Patient Location: Accession/Order Number: [id number] Exam Date: 06/08/2025 11:01 Report Date: 06/08/2025 [...] Knapp M.D. 06/08/2025 12:10 PM Dictation Location: [place] [address] Electronically authenticated by: [id number] Y Date: 06/08/2025 12:10 Dictated By: Shivam Knapp D.O. Signed By: 06/08/251212 DD/ 09 TD/TT: Slot Key Person: [facility] RadiologyCheo MD - 06/08/2025 [place] [address] Ultrasound Report Signed Patient: VIMAL FUNES MR#: [id number] : 2000 Acct:[id number] Age/Sex: 25 / F ADM Date: 06/08/25 Loc: US Attending Dr: Rossana Ramos Ordering Physician: Rossana Ramos Date of Service: 06/08/25 Procedure(s): US OB BPP w non-stress Accession Number(s): [id number] cc: Rossana Ramos; JENNIFER SEE [place] [address] Patient Name: VIMAL FUNES MRN: [facility]:[id number] date: 2000 Sex: F Assigned Patient Location: [facility] Current Patient Location: Accession/Order Number: [id number] Exam Date: 06/08/2025 11:01 Report Date: 06/08/2025 [...] Knapp M.D. 06/08/2025 12:10 PM Dictation Location: [facility]4 All Electronically authenticated by: [id number] Y Date: 06/08/2025 12:10 Dictated By: Shivam Knapp D.O. Signed By: 06/08/251212 DD/ 09 TD/TT: Slot Key Person: [facility] Radiology Study observation (narrative) [facility] US OB BPP W NON-STRESS Ordered By: Radiologist Radiology on 06-08-2025 [facility] Work Phone: US OB BPP W NON-STRESS on 06-01-[address] [address] Ultrasound Report Signed Patient: VIMAL FUNES MR#: [id number] : 2000 Acct:[id number] Age/Sex: 25 / F ADM Date: 06/01/25 Loc: US Attending Dr: Rossana Ramos Ordering Physician: Rossana Ramos Date of Service: 06/01/25 Procedure(s): US OB BPP w non-stress Accession Number(s): [id number] cc: Rossana Ramos; JENNIFER SEE The [address] [address] Patient Name: VIMAL FUNES MRN: [facility]:[id number] date: 2000 Sex: F Assigned Patient Location: US Current Patient Location: Accession/Order Number: [id number] Exam Date: 06/01/2025 10:59 Report Date: 06/01/2025 12:03 At the request of: ROSSANA RAMOS Procedure: US OB BPP w non-stress Biophysical profile. Reason for exam: Gestational diabetes COMPARISON: 05/25/2025 TECHNIQUE: Transabdominal imaging of the gravid uterus was obtained. FINDINGS: The manager intensive care reports a BPP of 8 out of 8. DANYA is normal at 11.0 cm. Cardiac activity was visualized by the manager intensive care per tech note. No heart rate was documented. US/US OB BPP w non-stress IMPRESSION: BPP 8 out of 8. Impression dictated by: Bulmaro Arias Jr., D.O. 06/01/2025 12:03 PM Dictation Location: [facility]18 Electronically authenticated by: [id number] Y Date: 06/01/2025 12:03 Dictated By: Bulmaro Arias M.D. Signed By: 06/01/25 1206 DD/ 120 TD/TT: Slot Key Person: [facility] Radiology, Radiologist, - 06/01/[address] [address] Ultrasound Report Signed Patient: VIMAL FUNES MR#: [id number] : 2000 Acct:[id number] Age/Sex: 25 / F ADM Date: 06/01/25 Loc: US Attending Dr: Rossana Ramos Ordering Physician: Rossana Ramos Date of Service: 06/01/25 Procedure(s): US OB BPP w non-stress Accession Number(s): [id number] cc: Rossana Ramos; JENNIFER SEE The [address] [address] Patient Name: VIMAL FUNES MRN: [id number] date: 2000 Sex: F Assigned Patient Location: US Current Patient Location: Accession/Order Number: [id number] Exam Date: 06/01/2025 10:59 Report Date: 06/01/2025 12:03 At the request of: ROSSANA RAMOS Procedure: US OB BPP w non-stress Biophysical profile. Reason for exam: Gestational diabetes COMPARISON: 05/25/2025 TECHNIQUE: Transabdominal imaging of the gravid uterus was obtained. FINDINGS: The manager intensive care reports a BPP of 8 out of 8. DANYA is normal at 11.0 cm. Cardiac activity was visualized by the manager intensive care per tech note. No heart rate was documented. US/US OB BPP w non-stress IMPRESSION: BPP 8 out of 8. Impression dictated by: Bulmaro Arias Jr., D.O. 06/01/2025 12:03 PM Dictation Location: [place] [address] Electronically authenticated by: [id number] Y Date: 06/01/2025 12:03 Dictated By: Bulmaro Arias M.D. Signed By: 06/01/25 1206 DD/ 120 TD/TT: Slot Key Person: [facility] [employer] Radiology Study observation (narrative) [facility] US OB BPP W NON-STRESS Ordered By: Radiologist Radiology on 06-01-2025 [facility] [employer] Work Phone: Urinalysis macro (dipstick) panel (U)on 05-28-2025 Bilirubin, UA Negative Negative - 4(70) +++ mg/dL [facility] Blood, UA Negative Negative - 50 Jason/mcL [facility] Clarity, UA Clear [facility] Color, UA Yellow [facility] Glucose, UA Negative Negative - 1999(110) ++++ mg/dL [facility] Interpretation and review of laboratory results Normal [facility] Ketones, UA Negative Negative - 160(16) ++++ mg/dL [facility] Leukocytes, UA Negative Negative - 500+++ Carlos/mcL [facility] Nitrite, UA Negative Negative - Positive [facility] pH, UA 6.5 5 - 9 [facility] e Protein, UA Negative Negative - 1999(20) ++++ mg/dL [facility] Spec Grav, UA 1.005 1 - 1.03 [facility] Urobilinogen, UA 1.0 0.2 - 12 mg/dL [facility] OB BPP W NON-STRESS on 05-25-2025 [place] [address] Ultrasound Report Signed Patient: VIMAL FUNES MR#: [id number] : 2000 Acct:[id number] Age/Sex: 25 / F ADM Date: 05/25/25 Loc: US Attending Dr: Rossana Ramos Ordering Physician: Rossana Ramos Date of Service: 05/25/25 Procedure(s): US OB BPP w non-stress Accession Number(s): [id number] cc: JENNIFER Watkins [address] [address] Patient Name: VIMAL FUNES MRN: [facility]:[id number] date: 2000 Sex: F Assigned Patient Location: [facility] Current Patient Location: Accession/Order Number: [id number] Exam Date: 05/25/2025 08:21 Report Date: 05/25/2025 [...] Acharya M.D. 05/25/2025 11:13 AM Dictation Location: [facility] Electronically authenticated by: [id number] Y Date: 05/25/2025 11:13 Dictated By: Heriberto Acharya M.D. Signed By: 05/25/25 1116 DD/ 1113 TD/TT: Slot Key Person: [facility] Radiology, Radiologist, - 05/25/2025 [place] [address] Ultrasound Report Signed Patient: VIMAL FUNES MR#: [id number] : 2000 Acct:[id number] Age/Sex: 25 / F ADM Date: 05/25/25 Loc: US Attending Dr: Rossana Ramos Ordering Physician: Rossana Ramos Date of Service: 05/25/25 Procedure(s): US OB BPP w non-stress Accession Number(s): [id number] cc: JENNIFER Watkins [address] [address] Patient Name: VIMAL FUNES MRN: [facility]:[id number] date: 2000 Sex: F Assigned Patient Location: [facility] Current Patient Location: Accession/Order Number: [id number] Exam Date: 05/25/2025 08:21 Report Date: 05/25/2025 [...] Acharya M.D. 05/25/2025 11:13 AM Dictation Location: [facility] Electronically authenticated by: [id number] Y Date: 05/25/2025 11:13 Dictated By: Heriberto Acharya M.D. Signed By: 05/25/25 1116 DD/ 1113 TD/TT: Slot Key Person: [facility] Radiology Study observation (narrative) [facility] US OB BPP W NON-STRESS Ordered By: Radiologist Radiology on 05-25-2025 [facility] [employer] Work Phone: Urinalysis macro (dipstick) panel (U)on 05-22-2025 Bilirubin, UA Negative Negative - 4(70) +++ mg/dL [facility] Blood, UA Negative Negative - 50 Jason/mcL [facility] Clarity, UA [facility] re Color, UA Yellow [facility] e Glucose, UA Negative Negative - 1999(110) ++++ mg/dL [facility] Interpretation and review of laboratory results Normal [facility] Ketones, UA Negative Negative - 160(16) ++++ mg/dL [facility] Leukocytes, UA Negative Negative - 500+++ Carlos/mcL [facility] Nitrite, UA Negative Negative - Positive [facility] pH, UA 6 5 - 9 [facility] Protein, UA Negative Negative - 1999(20) ++++ mg/dL [facility] Spec Grav, UA 1.01 1 - 1.03 [facility] Urobilinogen, UA 0.2 0.2 - 12 mg/dL [facility] TOTAL PROTEIN 24 HOUR UR INEon 05-20-2025 Interpretation and review of laboratory results Abnormal [facility] Protein (U) [Mass/Vol] 6.7 mg/dL NINF - 11.9 mg/dL [facility] TOTAL PROTEIN 24 HOUR URINE 194.3 High NINF [facility] TOTAL VOLUME 24 HOUR URINE 2900 mL/24hr [facility] ALL CBC WITH AUTO DIFFon BASOPHILS ABSOLUTE AUTO 0 [facility] Basophils/100 WBC (Bld) 0.1 % Low 0.2 - 2.0 % [facility] Eosinophils/100 WBC (Bld) 1.7 % 0.9 - 7.0 % [facility] Erythrocyte distribution width (RBC) [Ratio] 12.7 % 11.0 - 15.0 % [facility] Hematocrit (Bld) [Volume fraction] 38.1 % 36.0 - 48.0 % [facility] Hemoglobin (Bld) [Mass/Vol] 13.3 g/dL 12.0 - 16.0 g/dL [facility] IMMATURE GRANULOCYTES ABS AUTO 0.06 High [facility] Immature granulocytes/100 WBC (Bld) 0.4 % 0.0 - 0.5 % [facility] Interpretation and review of laboratory results Abnormal [facility] LYMPHOCYTES ABSOLUTE AUTO 1.4 [facility] Lymphocytes/100 WBC (Bld) 9 % Low 20.5 - 60.0 % [facility] MCH (RBC) [Entitic mass] 31.9 pg 26.7 - 34.0 pg [facility] MCHC (RBC) [Mass/Vol] 34.9 g/dL 29.9 - 35.2 g/dL [facility] MCV (RBC) [Entitic vol] 91.4 fL 81.0 - 99.0 fL [facility] MONOCYTES ABSOLUTE AUTO 0.7 [facility] Monocytes/100 WBC (Bld) 4.7 % 1.7 - 12.0 % [facility] NEUTROPHILS ABSOLUTE AUTO 12.6 High [facility] Neutrophils/100 WBC (Bld) 84.1 % High 43.0 - 75.0 % [facility] Platelet mean volume (Bld) [Entitic vol] 11.2 fL 9.5 - 13.5 fL [facility] EO # 0.3 [facility] PLT 223 [facility] RBC 4.17 Low [facility] WBC 15 High [facility] US OB BPP W NON-STRESS on 05-18-[address] [address] Ultrasound Report Signed Patient: VIMAL FUNES MR#: [id number] : 2000 Acct:[id number] Age/Sex: 25 / F ADM Date: 05/18/25 Loc: US Attending Dr: Rossana Ramos Ordering Physician: Rossana Ramos Date of Service: 05/18/25 Procedure(s): US OB BPP w non-stress Accession Number(s): [id number] cc: Rossana Ramos; JENNIFER SEE [address] [address] Patient Name: VIMAL FUNES MRN: [facility]:[id number] date: 2000 Sex: F Assigned Patient Location: [facility] Current Patient Location: Accession/Order Number: [id number] Exam Date: 05/18/2025 11:16 Report Date: 05/18/2025 [...] Acharya M.D. 05/18/2025 5:08 PM Dictation Location: [place] [address] Electronically authenticated by: [id number] Y Date: 05/18/2025 17:08 Dictated By: Heriberto Acharya M.D. Signed By: 05/18/252016 DD/ 07 TD/TT: Slot Key Person: [facility] Radiology, Radiologist, MD - 05/18/2025 The [place] [id number] Ultrasound Report Signed Patient: VIMAL FUNES MR#: [id number] : 2000 Acct:[id number] Age/Sex: 25 / F ADM Date: 05/18/25 Loc: US Attending Dr: Rossana Ramos Ordering Physician: Rossana Ramos Date of Service: 05/18/25 Procedure(s): US OB BPP w non-stress Accession Number(s): [id number] cc: Rossana Ramos; JENNIFER SEE [place] [id number] Patient Name: VIMAL FUNES MRN: [facility]:[id number] date: 2000 Sex: F Assigned Patient Location: [facility] Current Patient Location: Accession/Order Number: [id number] Exam Date: 05/18/2025 11:16 Report Date: 05/18/2025 [...] Acharya M.D. 05/18/2025 5:08 PM Dictation Location: [place] [address] Electronically authenticated by: [id number] Y Date: 05/18/2025 17:08 Dictated By: Heriberto Acharya M.D. Signed By: 05/18/252016 DD/ 07 TD/TT: Slot Key Person: [facility] Radiology Study observation (narrative) [facility] US OB BPP W NON-STRESS Ordered By: Radiologist Radiology on 05-18-2025 [employer] Work Phone: Glucose random or fasting- P OCTOrdered By: Sheridan Smallwood on 05-13-2025 External Glucose Fasting Or Random (Fbs) 80 [facility] US OB BPP W NON-STRESS on 05-11-2025 [place] [address] Ultrasound Report Signed Patient: VIMAL FUNES MR#: [id number] : 2000 Acct:[id number] Age/Sex: 25 / F ADM Date: 05/11/25 Loc: [facility] 253-[address]: Rossana Ramos Ordering Physician: Rossana Ramos Date of Service: 05/11/25 Procedure(s): US OB BPP w non-stress Accession Number(s): [id number] cc: Rossana Ramos; JENNIFER SEE [place] [id number] Patient Name: VIMAL FUNES MRN: [id number]:[id number] date: 2000 Sex: F Assigned Patient Location: [facility] Current Patient Location: [facility] Accession/Order Number: [id number] Exam Date: 05/11/2025 12:01 Report Date: 05/11/2025 12:02 At the request of: ROSSANA RAMOS Procedure: US OB BPP w non-stress Biophysical profile. Reason for exam: Gestational diabetes COMPARISON: 05/04/2025 TECHNIQUE: Transabdominal imaging of the gravid uterus was obtained. FINDINGS: The manager intensive care reports a BPP of 8 out of 8. DANYA is normal at 11.9 cm. heart rate 138 bpm. US/US OB BPP w non-stress IMPRESSION: BPP 8 out of 8. Impression dictated by: Bulmaro Arias Jr., D.O. 05/11/2025 12:02 PM Dictation Location: [place] [address] Electronically authenticated by: [id number] Y Date: 05/11/2025 12:02 Dictated By: Bulmaro Arias M.D. Signed By: 05/11/25 1204 DD/ 01 TD/TT: Slot Key Person: [facility] Radiology, Radiologist, - 05/11/2025 [place] [address] Ultrasound Report Signed Patient: VIMAL FUNES MR#: [id number] : 2000 Acct:[id number] Age/Sex: 25 / F ADM Date: 05/11/25 Loc: [facility] 253-[address]: Rossana Ramos Ordering Physician: Rossana Ramos Date of Service: 05/11/25 Procedure(s): US OB BPP w non-stress Accession Number(s): [id number] cc: Rossana Ramos; JENNIFER SEE The [place] [address] Patient Name: VIMAL FUNES MRN: [facility]:[id number] date: 2000 Sex: F Assigned Patient Location: [facility] Current Patient Location: [facility] Accession/Order Number: [id number] Exam Date: 05/11/2025 12:01 Report Date: 05/11/2025 12:02 At the request of: ROSSANA RAMOS Procedure: US OB BPP w non-stress Biophysical profile. Reason for exam: Gestational diabetes COMPARISON: 05/04/2025 TECHNIQUE: Transabdominal imaging of the gravid uterus was obtained. FINDINGS: The manager intensive care reports a BPP of 8 out of 8. DANYA is normal at 11.9 cm. heart rate 138 bpm. US/US OB BPP w non-stress IMPRESSION: BPP 8 out of 8. Impression dictated by: Bulmaro Arias Jr., D.O. 05/11/2025 12:02 PM Dictation Location: [place] [address] Electronically authenticated by: [id number] Y Date: 05/11/2025 12:02 Dictated By: Bulmaro Arias M.D. Signed By: 05/11/25 1204 DD/ 01 TD/TT: Slot Key Person: [facility] Radiology Study observation (narrative) [facility] US OB BPP W NON-STRESS Ordered By: Radiologist Radiology on 05-11-2025 [facility] Work Phone: [facility] TOTAL PROTEIN 24 HOUR UR INEon 05-06-2025 TOTAL PROTEIN URINE RANDOM <6.0 NINF - 11.9 mg/dL [facility] TOTAL VOLUME 24 HOUR URINE 3700 mL/24hr [facility] Glucose Tolerance 100 gm loadon 05-04-2025 Glucose Tolerance Test 2 Hour 186 [facility] ALL CBC WITH AUTO DIFFon BASOPHILS ABSOLUTE AUTO 0 [facility] Basophils/100 WBC (Bld) 0.2 % 0.2 - 2.0 % [facility] [facility] Eosinophils/100 WBC (Bld) 2.6 % 0.9 - 7.0 % [facility] Erythrocyte distribution width (RBC) [Ratio] 12.7 % 11.0 - 15.0 % [facility] Hematocrit (Bld) [Volume fraction] 39.5 % 36.0 - 48.0 % [facility] Hemoglobin (Bld) [Mass/Vol] 13.7 g/dL 12.0 - 16.0 g/dL [facility] IMMATURE GRANULOCYTES ABS AUTO 0.05 High [facility] Immature granulocytes/100 WBC (Bld) 0.4 % 0.0 - 0.5 % [facility] Interpretation and review of laboratory results Abnormal [facility] LYMPHOCYTES ABSOLUTE AUTO 1.6 [facility] Lymphocytes/100 WBC (Bld) 12.6 % Low 20.5 - 60.0 % [facility] MCH (RBC) [Entitic mass] 31.9 pg 26.7 - 34.0 pg [facility] MCHC (RBC) [Mass/Vol] 34.7 g/dL 29.9 - 35.2 g/dL [facility] MCV (RBC) [Entitic vol] 92.1 fL 81.0 - 99.0 fL [facility] MONOCYTES ABSOLUTE AUTO 0.6 [facility] Monocytes/100 WBC (Bld) 5 % 1.7 - 12.0 % [facility] NEUTROPHILS ABSOLUTE AUTO 9.9 High [facility] Neutrophils/100 WBC (Bld) 79.2 % High 43.0 - 75.0 % [facility] Platelet mean volume (Bld) [Entitic vol] 11 fL 9.5 - 13.5 fL [facility] EO # 0.3 [facility] TBH PLT 226 [facility] TBH RBC 4.29 [facility] WBC 12.5 High [facility] Glucose tolerance, 1 houron 05-04-2025 Glucose Tolerance Test 1 Hour 234 [facility] Glucose tolerance, 3 hourson 05-04-2025 Glucose Tolerance Test 3 Hour 133 [facility] Glucose, tolerance fastingon 05-04-2025 Glucose Tolerance Test Fasting 108 [facility] No Panel Informationon 05-04 [facility] US OB BPP W NON-STRESS on 05-04-2025 [place] [address] Ultrasound Report Signed Patient: VIMAL FUNES MR#: [id number] : 2000 Acct:[id number] Age/Sex: 25 / F ADM Date: 05/04/25 Loc: [place] [address]: Rossana Ramos Ordering Physician: Rossana Ramos Date of Service: 05/04/25 Procedure(s): US OB BPP w non-stress Accession Number(s): [id number] cc: Rossana Ramos; JENNIFER SEE [place] [id number] Patient Name: VIMAL FUNES MRN: [facility]:[id number] date: 2000 Sex: F Assigned Patient Location: [facility] Current Patient Location: [facility] Accession/Order Number: [id number] Exam Date: 05/04/2025 12:08 Report Date: 05/04/2025 12:09 At the request of: ROSSANA RAMOS Procedure: US OB BPP w non-stress Biophysical profile. Reason for exam: Gestational diabetes COMPARISON: None TECHNIQUE: Transabdominal imaging of the gravid uterus was obtained. FINDINGS: The manager intensive care reports a BPP of 8 out of 8. DANYA is normal at 12.4 cm. heart rate 150 bpm. US/US OB BPP w non-stress IMPRESSION: BPP 8 out of 8. Impression dictated by: Bulmaro Arias Jr. D.OGene 05/04/2025 12:09 PM Dictation Location: [facility]-18 Electronically authenticated by: [id number] Y Date: 05/04/2025 12:09 Dictated By: Bulmaro Arias M.D. Signed By: 05/04/25 1212 DD/ 1209 TD/TT: Slot Key Person: [facility] Radiology, Radiologist, - 05/04/2025 [place] [address] Ultrasound Report Signed Patient: VIMAL FUNES MR#: [id number] : 2000 Acct:[id number] Age/Sex: 25 / F ADM Date: 05/04/25 Loc: [facility] 250-[address]: Rossana Ramos Ordering Physician: Rossana Ramos Date of Service: 05/04/25 Procedure(s): US OB BPP w non-stress Accession Number(s): [id number] cc: Rossana Ramos; JENNIFER SEE [place] [address] Patient Name: VIMAL FUNES MRN: [facility]:[id number] date: 2000 Sex: F Assigned Patient Location: [facility] Current Patient Location: [facility] Accession/Order Number: [id number] Exam Date: 05/04/2025 12:08 Report Date: 05/04/2025 12:09 At the request of: ROSSANA RAMOS Procedure: US OB BPP w non-stress Biophysical profile. Reason for exam: Gestational diabetes COMPARISON: None TECHNIQUE: Transabdominal imaging of the gravid uterus was obtained. FINDINGS: The manager intensive care reports a BPP of 8 out of 8. DANYA is normal at 12.4 cm. heart rate 150 bpm. US/US OB BPP w non-stress IMPRESSION: BPP 8 out of 8. Impression dictated by: Bulmaro Arias Jr., D.O. 05/04/2025 12:09 PM Dictation Location: [facility]-18 Electronically authenticated by: [id number] Y Date: 05/04/2025 12:09 Dictated By: Bulmaro Arias M.D. Signed By: 05/04/25 1212 DD/ 1209 TD/TT: Slot Key Person: [facility] Radiology Study observation (narrative) [facility] US OB BPP W NON-STRESS Ordered By: Radiologist Radiology on 05-04-2025 [facility] [employer] Work Phone: US OB GROWTHon 05-04-2025 [place] [id number] Ultrasound Report Signed Patient: VIMAL FUNES MR#: [id number] : 2000 Acct:[id number] Age/Sex: 25 / F ADM Date: 05/04/25 Loc: [place] [address]: Rossana Ramos Ordering Physician: Rossana Ramos Date of Service: 05/04/25 Procedure(s): US OB growth Accession Number(s): [id number] cc: Rossana Ramos; JENNIFER SEE [place] [id number] Patient Name: VIMAL FUNES MRN: [facility]:[id number] date: 2000 Sex: F Assigned Patient Location: [facility] Current Patient Location: [facility] Accession/Order Number: [id number] Exam Date: 05/04/2025 12:06 Report Date: 05/04/2025 [...] Jr., D.O. 05/04/2025 12:08 PM Dictation Location: [employer] Electronically authenticated by: [id number] Y Date: 05/04/2025 12:08 Dictated By: Bulmaro Arias M.D. Signed By: 05/04/25 1211 DD/ 1208 TD/TT: Slot Key Person: [facility] Radiology, Radiologist, - 05/04/2025 [place] [address] Ultrasound Report Signed Patient: VIMAL FUNES MR#: [id number] : 2000 Acct:[id number] Age/Sex: 25 / F ADM Date: 05/04/25 Loc: [facility] 250-[address]: Rossana Ramos Ordering Physician: Rossana Ramos Date of Service: 05/04/25 Procedure(s): US OB growth Accession Number(s): [id number] cc: Rossana Ramos; JENNIFER SEE [place] [id number] Patient Name: VIMAL FUNES MRN: [facility]:[id number] date: 2000 Sex: F Assigned Patient Location: [facility] Current Patient Location: [facility] Accession/Order Number: [id number] Exam Date: 05/04/2025 12:06 Report Date: 05/04/2025 [...] Jr., D.O. 05/04/2025 12:08 PM Dictation Location: [facility] Electronically authenticated by: [id number] Y Date: 05/04/2025 12:08 Dictated By: Bulmaro Arias M.D. Signed By: 05/04/25 1211 DD/ 1208 TD/TT: Slot Key Person: [facility] Radiology Study observation (narrative) [facility] US OB GROWTHOrdered By: Jeimy ologwilly Radiology on 05-04-2025 [facility] Health[facility] Work Phone: Urinalysis macro (dipstick) panel (U)on 04-30-2025 Bilirubin, UA Negative Negative - 4(70) +++ mg/dL [facility] Blood, UA Negative Negative - 50 Jason/mcL [facility] Clarity, UA [facility] re Color, UA Yellow [facility] Glucose, UA Positive Negative - 2000(110) ++++ mg/dL [facility] Interpretation and review of laboratory results Abnormal [facility] Ketones, UA Negative Negative - 160(16) ++++ mg/dL [facility] Leukocytes, UA Positive Negative - 500+++ Carlos/mcL [facility] Nitrite, UA Negative Negative - Positive [facility] pH, UA 6 5 - 9 [facility] e Protein, UA Negative Negative - 2000(20) ++++ mg/dL [facility] Spec Grav, UA 1.01 1 - 1.03 [facility] Urobilinogen, UA 1.0 0.2 - 12 mg/dL [facility] Health[facility] e ALL CBC WITH AUTO DIFFon BASOPHILS ABSOLUTE AUTO 0 [facility] Basophils/100 WBC (Bld) 0.2 % 0.2 - 2.0 % [facility] Eosinophils/100 WBC (Bld) 2.2 % 0.9 - 7.0 % [facility] Erythrocyte distribution width (RBC) [Ratio] 12.9 % 11.0 - 15.0 % [facility] Hematocrit (Bld) [Volume fraction] 40 % 36.0 - 48.0 % [facility] Hemoglobin (Bld) [Mass/Vol] 13.6 g/dL 12.0 - 16.0 g/dL [facility] IMMATURE GRANULOCYTES ABS AUTO 0.04 High [facility] Immature granulocytes/100 WBC (Bld) 0.3 % 0.0 - 0.5 % [facility] Interpretation and review of laboratory results Abnormal [facility] LYMPHOCYTES ABSOLUTE AUTO 1.4 [facility] Lymphocytes/100 WBC (Bld) 10.8 % Low 20.5 - 60.0 % [facility] MCH (RBC) [Entitic mass] 31.7 pg 26.7 - 34.0 pg [facility] MCHC (RBC) [Mass/Vol] 34 g/dL 29.9 - 35.2 g/dL [facility] MCV (RBC) [Entitic vol] 93.2 fL 81.0 - 99.0 fL [facility] MONOCYTES ABSOLUTE AUTO 0.5 [facility] Monocytes/100 WBC (Bld) 4.3 % 1.7 - 12.0 % [facility] NEUTROPHILS ABSOLUTE AUTO 10.2 High [facility] Neutrophils/100 WBC (Bld) 82.2 % High 43.0 - 75.0 % [facility] Platelet mean volume (Bld) [Entitic vol] 10.6 fL 9.5 - 13.5 fL [facility] TBH EO # 0.3 [facility] PLT 202 [facility] TB RBC 4.29 [facility] TBH WBC 12.5 High [facility] Glucose 1h post 50g loadon 0 04-27-2025 Glucose, 1 hr PP 50GM dose 171 [facility] No Panel Informationon 04-27 [facility] Urinalysis macro (dipstick) panel (U)on 04-25-2025 Bilirubin, UA Negative Negative - 4(70) +++ mg/dL [facility] Blood, UA Negative Negative - 50 Jason/mcL [facility] Clarity, UA [facility] re Color, UA Yellow [facility] Glucose, UA Negative Negative - 1999(110) ++++ mg/dL [facility] Interpretation and review of laboratory results Normal [facility] Ketones, UA Negative Negative - 160(16) ++++ mg/dL [facility] Leukocytes, UA Negative Negative - 500+++ Carlos/mcL [facility] Nitrite, UA Negative Negative - Positive [facility] pH, UA 6.5 5 - 9 [facility] Protein, UA Negative Negative - 1999(20) ++++ mg/dL [facility] Spec Grav, UA 1.01 1 - 1.03 [facility] Urobilinogen, UA 0.2 0.2 - 12 mg/dL [facility] Urinalysis macro (dipstick) panel (U)on 04-11-2025 Bilirubin, UA Negative Negative - 4(70) +++ mg/dL [facility] Blood, UA Negative Negative - 50 Jason/mcL [facility] Clarity, UA Clear [facility] re Color, UA Yellow [facility] Glucose, UA Negative Negative - 1999(110) ++++ mg/dL [facility] Interpretation and review of laboratory results Normal [facility] Ketones, UA Negative Negative - 160(16) ++++ mg/dL [facility] Leukocytes, UA Negative Negative - 500+++ Carlos/mcL [facility] Nitrite, UA Negative Negative - Positive [facility] pH, UA 7 5 - 9 [facility] Protein, UA Negative Negative - 1999(20) ++++ mg/dL [facility] Spec Grav, UA 1.005 1 - 1.03 [facility] Urobilinogen, UA 1.0 0.2 - 12 mg/dL [facility] US OB INCOMPLETE ANATOMYon 0 03-25-2025 [place] [address] Ultrasound Report Signed Patient: VIMAL FUNES MR#: [id number] : 2000 Acct:[id number] Age/Sex: 24 / F ADM Date: 03/23/25 Loc: US Attending Dr: Jose Rodriguez D.O. Ordering Physician: Jose Rodriguez D.O. Date of Service: 03/23/25 Procedure(s): US OB incomplete anatomy Accession Number(s): [id number] cc: JENNIFER SEE ; Jose Rodriguez D.O. [address] [address] Patient Name: VIMAL FUNES MRN: [id number]:[id number] date: 2000 Sex: F Assigned Patient Location: US Current Patient Location: US Accession/Order Number: [id number] Exam Date: 03/25/2025 08:23 Report Date: 03/25/2025 [...] 03/25/2025 8:25 AM Dictation Location: [place] [address] Electronically authenticated by: [id number] Y Date: 03/25/2025 08:25 Dictated By: Meghana Brown M.D. Signed By: 03/25/25826 DD/ 4 TD/TT: Slot Key Person: [facility] Radiology, Radiologist, MD - 03/25/2025 [place] [address] Ultrasound Report Signed Patient: VIMAL FUNES MR#: [id number] : 2000 Acct:[id number] Age/Sex: 24 / F ADM Date: 03/23/25 Loc: US Attending Dr: Jose Rodriguez D.O. Ordering Physician: Jose Rodriguez D.O. Date of Service: 03/23/25 Procedure(s): US OB incomplete anatomy Accession Number(s): [id number] cc: JENNIFER SEE ; Jose Rodriguez D.O. [place] [phone] Patient Name: VIMAL FUNES MRN: [facility]:[id number] date: 2000 Sex: F Assigned Patient Location: US Current Patient Location: US Accession/Order Number: [id number] Exam Date: 03/25/2025 08:23 Report Date: 03/25/2025 08:25 At the request of: JOSE MICHAEL DO Procedure: US OB incomplete anatomy ULTRASOUND [...] 03/25/2025 8:25 AM Dictation Location: [place] [address] Electronically authenticated by: [id number] Y Date: 03/25/2025 08:25 Dictated By: Meghana Brown M.D. Signed By: 03/25/25826 DD/ 4 TD/TT: Slot Key Person: [facility] Radiology Study observation (narrative) [facility] US OB INCOMPLETE ANATOMYOrde red By: Radiologist Radiology on 03-25-2025 [facility] [employer] Work Phone: Urinalysis macro (dipstick) panel (U)on 03-14-2025 Bilirubin, UA Negative Negative - 4(70) +++ mg/dL [facility] Blood, UA Negative Negative - 50 Jason/mcL [facility] Clarity, UA [facility] re Color, UA Yellow [facility] Glucose, UA Negative Negative - 1999(110) ++++ mg/dL [facility] Interpretation and review of laboratory results Normal [facility] Ketones, UA Negative Negative - 160(16) ++++ mg/dL [facility] Leukocytes, UA Negative Negative - 500+++ Carlos/mcL [facility] Nitrite, UA Negative Negative - Positive [facility] pH, UA 7 5 - 9 [facility] Protein, UA Negative Negative - 1999(20) ++++ mg/dL [facility] Spec Grav, UA 1.01 1 - 1.03 [facility] Urobilinogen, UA 0.2 0.2 - 12 mg/dL [facility] No Panel InformationOrdered By: Radiologist Radiology on 03-08-2025 [facility] Work Phone: No Panel Informationon 03-08 Radiology Study observation (narrative) [facility] US OB ANATOMYon 03-08-[address] [address] Ultrasound Report Signed Patient: VIMAL FUNES MR#: [id number] : 2000 Acct:[id number] Age/Sex: 24 / F ADM Date: 03/08/25 Loc: US Attending Dr: Jose Rodriguez D.O. Ordering Physician: Jose Rodriguez D.O. Date of Service: 03/08/25 Procedure(s): US OB anatomy Accession Number(s): [id number] cc: JENNIFER SEE ; Jose Rodriguez D.O. [address] [address] Patient Name: VIMAL FUNES MRN: [id number]:[id number] date: 2000 Sex: F Assigned Patient Location: US Current Patient Location: US Accession/Order Number: [id number] Exam Date: 03/08/2025 20:31 Report Date: 03/08/2025 [...] Knapp M.D. 03/08/2025 8:36 PM Dictation Location: [place] [address] Electronically authenticated by: [id number] Y Date: 03/08/2025 20:36 Dictated By: Shivam Knapp D.O. Signed By: 03/08/252037 DD/ 35 TD/TT: Slot Key Person: [facility] Radiology, Radiologist, MD - 03/08/2025 [place] [address] Ultrasound Report Signed Patient: VIMAL FUNES MR#: [id number] : 2000 Acct:[id number] Age/Sex: 24 / F ADM Date: 03/08/25 Loc: US Attending Dr: Jose Rodriguez D.O. Ordering Physician: Jose Rodriguez D.O. Date of Service: 03/08/25 Procedure(s): US OB anatomy Accession Number(s): [id number] cc: JENNIFER SEE ; Jose Rodriguez D.O. [place] [address] Patient Name: VIMAL FUNES MRN: [facility]:[id number] date: 2000 Sex: F Assigned Patient Location: US Current Patient Location: US Accession/Order Number: [id number] Exam Date: 03/08/2025 20:31 Report Date: 03/08/2025 [...] Knapp M.D. 03/08/2025 8:36 PM Dictation Location: [employer] Electronically authenticated by: [id number] Y Date: 03/08/2025 20:36 Dictated By: Shivam Knapp D.O. Signed By: 03/08/252037 DD/ 35 TD/TT: Slot Key Person: [facility] OB CERVICAL LENGTHon 02-24 [place] [address] Ultrasound Report Signed Patient: VIMAL FUNES MR#: [id number] : 2000 Acct:[id number] Age/Sex: 24 / F ADM Date: 03/08/25 Loc: US Attending Dr: Jose Rodriguez D.O. Ordering Physician: Jose Rodriguez D.O. Date of Service: 03/08/25 Procedure(s): US OB cervical length Accession Number(s): [id number] cc: JENNIFER SEE ; Jose Rodriguez D.O. [place] [phone] Patient Name: VIMAL FUNES MRN: [id number]:[id number] date: 2000 Sex: F Assigned Patient Location: US Current Patient Location: US Accession/Order Number: [id number] Exam Date: 03/08/2025 20:31 Report Date: 03/08/2025 [...] Knapp M.D. 03/08/2025 8:36 PM Dictation Location: [employer] Electronically authenticated by: [id number] Y Date: 03/08/2025 20:36 Dictated By: Shivam Knapp D.O. Signed By: 03/08/252037 DD/ 35 TD/TT: Slot Key Person: [facility] Radiology, Radiologist, MD - 03/08/2025 [place] [address] Ultrasound Report Signed Patient: VIMAL FUNES MR#: [id number] : 2000 Acct:[id number] Age/Sex: 24 / F ADM Date: 03/08/25 Loc: US Attending Dr: Jose Rodriguez D.O. Ordering Physician: Jose Rodriguez D.O. Date of Service: 03/08/25 Procedure(s): US OB cervical length Accession Number(s): [id number] cc: JENNIFER SEE ; Jose Rodriguez D.O. The [address] [address] Patient Name: VIMAL FUNES MRN: [facility]:[id number] date: 2000 Sex: F Assigned Patient Location: Current Patient Location: US Accession/Order Number: [id number] Exam Date: 03/08/2025 20:31 Report Date: 03/08/2025 [...] Knapp M.D. 03/08/2025 8:36 PM Dictation Location: [place] [address] Electronically authenticated by: [id number] Y Date: 03/08/2025 20:36 Dictated By: Shivam Knapp D.O. Signed By: 03/08/252037 DD/ 35 TD/TT: Slot Key [facility] IGP,APTIMA HPV,AGE GDLNon AGE GDLN ACOG TESTING Note . [facility] May Martinez Comment on above: TESTS RESULT FLAG UN ITS REF RANGE LAB Clinician Provided Cytology Information Source.............Endocervix No. of containers..01 ThinPrep Vial Age Ramirez Arndt... FLAG LEGEND: L-Low Normal,H-High Normal,LL-Alert Low,HH-Alert High <-Panic Low,>-Panic High,A-Abnormal,AA-Critical Abnormal Performed at: 01 =[address] [facility] [address] Jenise Byrne MD, IGP, RFX APTIMA HPV ASCU Note . [facility] Comment on above: TESTS RESULT FLAG U NITS REF RANGE LAB DIAGNOSIS: 02 NEGATIVE FOR INTRAEPITHELIAL LESION OR MALIGNANCY. Specimen adequacy: 02 Satisfactory for evaluation. Endocervical and/or squamous metaplastic cells (endocervical component) are present. Performed by: Hussein Alvarez, Spring Up Supervisor (ASCP) . 02 Note: Note 02 The [...] <-Panic Low,>-Panic High,A-Abnormal,AA-Critical Abnormal Performed at: [address] [address] Jenise Byrne MD, Performed at: =[address] [id number] [employer]: Jenise Byrne MD, Phone: [phone] Performed at: [address] [id number] [employer]: Jenise Byrne MD, Phone: [phone] SPATULA-ALONE ENDOCERVIX [facility] REC[facility]RENT VAGINITIS (HTRX)on 02-22-2025 ATOPOBIUM VAGINAE 0 [facility] ATOPOBIUM VAGINAE Not detected [facility] BVAB 2,3 (BACTERIAL VAGINOSIS ASSOCIATED BACTERIA 2, 3); MOBILUNCUS SPP 0 [facility] BVAB 2,3 (BACTERIAL VAGINOSIS ASSOCIATED BACTERIA 2, 3); MOBILUNCUS SPP Not detected [facility] SIMEON ALBICANS, PARAPSILOSIS, TROPICALIS 0 [facility] SIMEON ALBICANS, PARAPSILOSIS, TROPICALIS Not detected [facility] SIMEON GLABRATA 0 [facility] SIMEON GLABRATA [facility] S[facility]ON KRUSEI 0 [facility] SIMEON KRUSEI Not detected [facility] CHLAMYDIA TRACHOMATIS 0 [facility] CHLAMYDIA TRACHOMATIS Not detected N [facility] GARDNERELLA VAGINALIS 0 [facility] GARDNERELLA VAGINALIS Not detected [facility] MEGASPHAERA (TYPES 1, 2) 0 [facility] MEGASPHAERA (TYPES 1, 2) Not detected [facility] MYCOPLASMA GENITALIUM 0 [facility] Healthcare MYCOPLASMA GENITALIUM Not detected N [facility] Healthcare NEISSERIA GONORRHOEAE 0 [facility] Healthcare NEISSERIA GONORRHOEAE Not detected N [facility] TRICHOMONAS VAGINALIS 0 [facility] S [facility] TRICHOMONAS VAGINALIS Not detected [facility] Urinalysis macro (dipstick) panel (U)on 02-20-2025 Bilirubin, UA Negative Negative - 4(70) +++ mg/dL [facility] Blood, UA Negative Negative - 50 Jason/mcL [facility] Healthcare Clarity, UA Clear [facility] re Color, UA Yellow [facility] Glucose, UA Negative Negative - 1999(110) ++++ mg/dL [facility] Interpretation and review of laboratory results Abnormal [facility] Ketones, UA Negative Negative - 160(16) ++++ mg/dL [facility] Leukocytes, UA Negative Negative - 500+++ Carlos/mcL [facility] Healthcare Nitrite, UA Negative Negative - Positive [facility] pH, UA 7 5 - 9 [facility] Protein, UA Negative Negative - 1999(20) ++++ mg/dL [facility] Healthcare Spec Grav, UA 1.01 1 - 1.03 [facility] Urobilinogen, UA 0.2 0.2 - 12 mg/dL [facility] Unlisted Lab Teston 01-16-[address] [place] [address] Urinalysis macro (dipstick) panel (U)on 01-14-2025 Bilirubin, UA Negative Negative - 4(70) +++ mg/dL [facility] Blood, UA Positive Negative - 50 Jason/mcL [facility] Healthcare Comment on above: trace-intact Clarity, UA Clear [facility] re Color, UA Yellow [facility] Glucose, UA Negative Negative - 1999(110) ++++ mg/dL [facility] Interpretation and review of laboratory results Abnormal [facility] Ketones, UA Negative Negative - 160(16) ++++ mg/dL [facility] Leukocytes, UA Negative Negative - 500+++ Carlos/mcL [facility] Healthcare Nitrite, UA Negative Negative - Positive [facility] pH, UA 6 5 - 9 [facility] Protein, UA Negative Negative - 1999(20) ++++ mg/dL [facility] Spec Grav, UA 1.005 1 - 1.03 [facility] Urobilinogen, UA 0.2 0.2 - 12 mg/dL [facility] Free Cell DNA (Non-Pro Medica Send Out)on 01-13-2025 [facility] ALL CBC WITH AUTO DIFFon BASOPHILS ABSOLUTE AUTO 0 [facility] Basophils/100 WBC (Bld) 0.4 % 0.2 - 2.0 % [facility] Eosinophils/100 WBC (Bld) 1.7 % 0.9 - 7.0 % [facility] Erythrocyte distribution width (RBC) [Ratio] 12.3 % 11.0 - 15.0 % [facility] IMMATURE GRANULOCYTES ABS AUTO 0.02 [facility] Immature granulocytes/100 WBC (Bld) 0.2 % 0.0 - 0.5 % [facility] Interpretation and review of laboratory results Abnormal [facility] LYMPHOCYTES ABSOLUTE AUTO 1.4 [facility] Lymphocytes/100 WBC (Bld) 15.4 % Low 20.5 - 60.0 % [facility] MCH (RBC) [Entitic mass] 31.6 pg 26.7 - 34.0 pg [facility] MCHC (RBC) [Mass/Vol] 34.6 g/dL 29.9 - 35.2 g/dL [facility] MCV (RBC) [Entitic vol] 91.4 fL 81.0 - 99.0 fL [facility] MONOCYTES ABSOLUTE AUTO 0.5 [facility] Monocytes/100 WBC (Bld) 5.4 % 1.7 - 12.0 % [facility] NEUTROPHILS ABSOLUTE AUTO 7 High [facility] Neutrophils/100 WBC (Bld) 76.9 % High 43.0 - 75.0 % [facility] Platelet mean volume (Bld) [Entitic vol] 10.1 fL 9.5 - 13.5 fL [facility] TBH EO # 0.2 [facility] TBH PLT 216 [facility] RBC 4.65 [facility] WBC 9.2 [facility] CLINISYNC CBC without diffOrdered By: Lay Peacock on 01-05-2025 Rbc Mcv (Fl) By Automated Count 91.4 [facility] Drug Screen, Urineon 025 Amphetamine/Methamphet amine Negative [facility] Barbiturates Negative [facility] Benzodiazepines Negarive [facility] Cocaine Metabolite Negative [facility] Ecstasy Negative [facility] Methadone Negative [facility] Opiates Negative [facility] Phencyclidine Negative [facility] Thc Marijuana, Urine Negative [facility] HBV surface Ag IA Qlon 01-05 Hepatitis B Surface Antigen Negative [facility] HIV 1+2 Ab+HIV1 p24 Ag IA Ql on 01-05-2025 HIV 1&2 AB/AG Non-Reactive [facility] Hemoglobin A1con 01-05-2025 HbA1c (Bld) [Mass fraction] 5 % 4.0 - 6.0 % [facility] Laboratory - Hematology and Cell countson 01-05-2025 Hematocrit (Bld) [Volume fraction] 42.5 % [facility] ThriveHive e Hemoglobin (Bld) [Mass/Vol] 14.7 g/dL [facility] iVideosongs No Panel Informationon 01-05 [facility] Rubella IGG immune statuson 01-05-2025 Rubella immune IgG 1.57 [facility] Type and screenon 01-05-2025 Abo/Rh(D) Positive [facility] US OB TRANSVAGINALon 025 US [...] II, MD, PHD at 14-Dec-2024 08:35:59 PM [facility] Normal Not Available Comment on above: Order Comment: US OB TRANSVAGINAL No LMP recorded. TBH PREG QUANT HCGon 11-21- 025 HCG QUANTITATIVE 09945 mIU/mL [facility] Hea lthcare Comment on above: 5-50 0.2-1 WEEK 50-500 1-2 WEEKS 100-5,000 2-3 WEEKS 500-10,000 3-4 WEEKS 1,000-50,000 4-5 WEEKS 10,000-100,000 5-6 WEEKS 15,000-200,000 6-8 WEEKS 10,000-100,000 2-3 [facility] TBH PREG QUANT HCGon 11-19- 025 HCG QUANTITATIVE 6254 mIU/mL [facility] a lthcare Comment on above: 5-50 0.2-1 WEEK 50-500 1-2 WEEKS 100-5,000 2-3 WEEKS 500-10,000 3-4 WEEKS 1,000-50,000 4-5 WEEKS 10,000-100,000 5-6 WEEKS 15,000-200,000 6-8 WEEKS 10,000-100,000 2-3 [facility] Ritotcar e TBH PREG QUANT HCGon 024 HCG QUANTITATIVE 6 mIU/mL [facility] Comment on above: 5-50 0.2-1 WEEK 50-500 1-2 WEEKS 100-5,000 2-3 WEEKS 500-10,000 3-4 WEEKS 1,000-50,000 4-5 WEEKS 10,000-100,000 5-6 WEEKS 15,000-200,000 6-8 WEEKS 10,000-100,000 2-3 [facility] Ritotcar e ALL CBC WITH AUTO DIFFon BASOPHILS ABSOLUTE AUTO 0 [facility] Basophils/100 WBC (Bld) 0.5 % 0.2 - 2.0 % [facility] Eosinophils/100 WBC (Bld) 6.2 % 0.9 - 7.0 % [facility] Erythrocyte distribution width (RBC) [Ratio] 11.9 % 11.0 - 15.0 % [facility] Hematocrit (Bld) [Volume fraction] 43.8 % 36.0 - 48.0 % [facility] Hemoglobin (Bld) [Mass/Vol] 14.8 g/dL 12.0 - 16.0 g/dL [facility] IMMATURE GRANULOCYTES ABS AUTO 0.02 [facility] Immature granulocytes/100 WBC (Bld) 0.2 % 0.0 - 0.5 % [facility] LYMPHOCYTES ABSOLUTE AUTO 2 [facility] Lymphocytes/100 WBC (Bld) 22.1 % 20.5 - 60.0 % [facility] MCH (RBC) [Entitic mass] 31.7 pg 26.7 - 34.0 pg [facility] MCHC (RBC) [Mass/Vol] 33.8 g/dL 29.9 - 35.2 g/dL [facility] MCV (RBC) [Entitic vol] 93.8 fL 81.0 - 99.0 fL [facility] MONOCYTES ABSOLUTE AUTO 0.5 [facility] Monocytes/100 WBC (Bld) 5.3 % 1.7 - 12.0 % [facility] NEUTROPHILS ABSOLUTE AUTO 5.8 [facility] Neutrophils/100 WBC (Bld) 65.7 % 43.0 - 75.0 % [facility] Platelet mean volume (Bld) [Entitic vol] 10 fL 9.5 - 13.5 fL [facility] TBH EO # 0.6 [facility] Health[facility] e [facility] PLT 236 [facility] RBC 4.67 [facility] WBC 8.9 [facility] Health[facility] CLINISYNC [facility] Health[facility] e [place] 08-10-2024 L Specimen: [id number] Received: 08/10/24 Status: CAROL Parker Num: [id number] Spec Type: Surgical Subm Dr: Jose Rodriguez Tissues: A Products of Conception - Spontaneous or Missed (CONTENTS OF CONCEPT Procedures: HE/2, Gross/Micro L4 Age/ Patient Sex Location Account Attending Physician Vimal Funes / LABELL [id number] Jose Rodriguez SPEC NUM: [id number] RECD: 08/10/24 STATUS: CAROL PARKER NUM: [id number] CAROLIN: 08/10/24 [facility] DR: Jose Rodriguez ENTERED: 08/10/[address] [facility] [address]: Vignesh Schmtiz SPEC TYPE: Surgical DEPT: MONICA ALTMAN ENTERED BY: [id number] RECV BY: [id number] ORDERED: HE/2, Gross/Micro L4 ORDERED: HE/2, Gross/Micro [...] villi and decidua. No tissue is identified. Plumber Cub sections of the chorionic villi are submitted in cassette A1 with asset protection representative sections of the decidua is submitted in cassette A2. (2, ss, [id number]) CPT Codes 13955 Specimen: [id number] Received: 08/10/24 Status: CAROL Parker Num: [id number] Spec Type: Surgical Subm Dr: Jose Rodriguez Tissues: A Products of Conception - Spontaneous or Missed (CONTENTS OF CONCEPT Procedures: TONJA/Odell Flores/Micro L4 Patient: Vimal Funes [id number] (Continued) Signed (signature on file) Josh Aragon MD 08/13/24 1647 Normal [facility] TBH PREG QUANT HCGon 08-10- 024 HCG QUANTITATIVE 240 mIU/mL [facility] lthcare Comment on above: 5-50 0.2-1 WEEK 50-500 1-2 WEEKS 100-5,000 2-3 WEEKS 500-10,000 3-4 WEEKS 1,000-50,000 4-5 WEEKS 10,000-100,000 5-6 WEEKS 15,000-200,000 6-8 WEEKS 10,000-100,000 2-3 MONTHS [facility] CBC WITH AUTO DIFFon BASOPHILS ABSOLUTE AUTO 0.1 [facility] Basophils/100 WBC (Bld) 0.5 % 0.2 - 2.0 % [facility] Eosinophils/100 WBC (Bld) 2.8 % 0.9 - 7.0 % [facility] Erythrocyte distribution width (RBC) [Ratio] 11.9 % 11.0 - 15.0 % [facility] Hematocrit (Bld) [Volume fraction] 44.7 % 36.0 - 48.0 % [facility] Hemoglobin (Bld) [Mass/Vol] 15.3 g/dL 12.0 - 16.0 g/dL [facility] IMMATURE GRANULOCYTES ABS AUTO 0.03 [facility] Immature granulocytes/100 WBC (Bld) 0.3 % 0.0 - 0.5 % [facility] Interpretation and review of laboratory results Abnormal [facility] LYMPHOCYTES ABSOLUTE AUTO 1.6 [facility] Lymphocytes/100 WBC (Bld) 14.9 % Low 20.5 - 60.0 % [facility] MCH (RBC) [Entitic mass] 31.7 pg 26.7 - 34.0 pg [facility] MCHC (RBC) [Mass/Vol] 34.2 g/dL 29.9 - 35.2 g/dL [facility] MCV (RBC) [Entitic vol] 92.7 fL 81.0 - 99.0 fL [facility] MONOCYTES ABSOLUTE AUTO 0.4 [facility] Monocytes/100 WBC (Bld) 3.7 % 1.7 - 12.0 % [facility] NEUTROPHILS ABSOLUTE AUTO 8.2 High [facility] Neutrophils/100 WBC (Bld) 77.8 % High 43.0 - 75.0 % [facility] Platelet mean volume (Bld) [Entitic vol] 10 fL 9.5 - 13.5 fL [facility] TB EO # 0.3 [facility] e [facility] [address]T [address] [facility] RBC 4.82 [facility] e [facility] WBC 10.6 [facility] CLINISYNC No Panel Informationon 07-21 [facility] DRUG SCREEN RAPID (URINE )on 07-21-2024 AMPHETAMINE SCREEN URINE Negative NEGATIVE [facility] BARBITURATES SCREEN URINE Negative NEGATIVE [facility] BENZODIAZEPINES SCREEN URINE Negative NEGATIVE [facility] BUPRENORPHINE SCREEN URINE Negative NEGATIVE [facility] Comment on above: DRUG CLASS TEST [...] 300 ng/mL CANNABINOID SCREEN URINE Negative NEGATIVE [facility] COCAINE SCREEN URINE Negative NEGATIVE [facility] METHADONE SCREEN URINE Negative NEGATIVE NO [facility] METHAMPHETAMINES SCREEN URINE Negative NEGATIVE [facility] OPIATE SCREEN URINE Negative NEGATIVE [facility] OXYCODONE SCREEN URINE Negative NEGATIVE NO [facility] PHENCYCLIDINE SCREEN URINE Negative NEGATIVE [facility] TRICYCLIC ANTIDEPRESSANT URINE Negative NEGATIVE [facility] REEFLEX IF POSITIVE CLINISYNC HCG ( test) Ql (U)o n 06-29-2024 Interpretation and review of laboratory results Abnormal [facility] Preg Test, Ur Positive [facility] Urinalysis macro (dipstick) panel (U)on 06-29-2024 Bilirubin, UA Negative Negative - 4(70) +++ mg/dL [facility] Blood, UA Negative Negative - 50 Jason/mcL [facility] Clarity, UA Clear [facility] Healthca re Color, UA Yellow [facility] Healthcar e Glucose, UA Negative Negative - 1999(110) ++++ mg/dL [facility] Interpretation and review of laboratory results Normal [facility] Ketones, UA Negative Negative - 160(16) ++++ mg/dL [facility] Leukocytes, UA Negative Negative - 500+++ Carlos/mcL [facility] Nitrite, UA Negative Negative - Positive [facility] pH, UA 7.0 5 - 9 [facility] Health[facility] Protein, UA Negative Negative - 1999(20) ++++ mg/dL [facility] Spec Grav, UA 1.015 1 - 1.03 [facility] Urobilinogen, UA 0.2 0.2 - 12 mg/dL [facility] XR hand RT min 3V*on 023 XR hand RT min 3V* [facility] [employer] Other XR hand RT min 3V* [facility] [place] [employer] Other XR hand RT min 3V* [address] [place] [address] [employer] Other XR hand RT min 3V* [place] [address] [employer] Other XR hand RT min 3V* XRay Report [employer] Other XR hand RT min 3V* Signed [employer] Other XR hand RT min 3V* Patient: Vimal Funes MR#: [id number] [employer] Other XR hand RT min 3V* 18 [employer] Other XR hand RT min 3V* : 2000 Acct:[id number] [employer] Other XR hand RT min 3V* Age/Sex: 22 / F ADM Date: 12/26/22 [employer] Other XR hand RT min 3V* Loc: XDUCLY Room: Type: REG CLI [employer] Other XR hand RT min 3V* Attending Dr: Jennifer GIL [employer] Other XR hand RT min 3V* Copies to: JEFFERY Rodriguez [employer] Other XR hand RT min 3V* Ordering Provider: JEFFERY Rodriguez [employer] Other XR hand RT min 3V* Date of Service: 12/26/22 [employer] Other XR hand RT min 3V* XR/XR hand RT min 3V*: RIGHT HAND INJURY [employer] Other XR hand RT min 3V* RIGHT HAND - 4 views [employer] Other XR hand RT min 3V* REASON FOR EXAM: Patient had right thumb hyperextended yesterday when trying to open the door. Now [employer] Other XR hand RT min 3V* with pain. [employer] Other XR hand RT min 3V* COMPARISON: None [employer] Other XR hand RT min 3V* FINDINGS: [employer] Other XR hand RT min 3V* No focal soft tissue abnormality. There appears to be avulsion fracture involving the base of the [employer] Other XR hand RT min 3V* distal phalanx of the thumb. Joint spaces appear maintained. No bony erosions. [employer] Other XR hand RT min 3V* XR/XR hand RT min 3V* [employer] Other XR hand RT min 3V* IMPRESSION: [employer] Other XR hand RT min 3V* AVULSION FRACTURE INVOLVING THE BASE OF THE DISTAL PHALANX OF THE THUMB. [employer] Other XR hand RT min 3V* Impression dictated by: Bulmaro Arias Jr., D.O.12/26/2022 1:44 PM [employer] Other XR hand RT min 3V* Dictation Location: [facility] [employer] Other XR hand RT min 3V* Transcribed By: PWS 12/26/22 [facility] [employer] Other XR hand RT min 3V* Dictated By: Bulmaro Arias Jr, DO 12/26/22 [facility] [employer] Other XR hand RT min 3V* Signed By: [employer] Other XR hand RT min 3V* 12/26/[address] [place] [address] [employer] Other PAP ACOG PANEL 2: 22 to 30on 11-09-2022 . . Normal [facility] Comment on above: Performed By: #### [id number] ####[facility] [address] [place], [place] [address]DrGene Mancini Age Gdln ACOG Testing 21-29 [facility] Comment on above: Performed By: #### [id number] ####[facility] [address] [place] [address]DrGene Mancini DIAGNOSIS: Comment Normal [facility] Comment on above: Result Comment: NEGA TIVE FOR INTRAEPITHELIAL LESION OR MALIGNANCY. Performed By: #### [id number] ####[facility] [address] [place] [address]DrGene Mancini Methodology: Comment [facility] Comment on above: Result Comment: This liquid based ThinPrep(R) pap test was screened with the use of an image guided system. Performed By: #### [id number] ####[facility] [address] [place] [address]Dr. Donis Mancini Note: Comment Normal [facility] Comment on above: Result Comment: The Pap smear is a screening test designed to aid in the detection of premalignant and malignant conditions of the uterine cervix. It is not a diagnostic procedure and should not be used as the sole means of detecting cervical cancer. Both false-positive and false-negative reports do occur. . Performed By: #### [id number] ####[facility] [address] [place] [address]Dr. Donis Mancini Performed by: Comment Normal [facility] Comment on above: Result Comment: Zuleima Lin, Plug Stitcher (ASCP) Performed By: #### 4 [id number] ####[facility] [address] [place] [address]DrGene Mancini Reflex Criteria: Comment Normal [facility] Comment on above: Result Comment: The HPV DNA reflex criteria were not met with this specimen result therefore, no HPV testing was performed. . Performed By: #### [id number] ####[facility] [address] [place] [address]Dr. Donis Mancini Specimen adequacy: Comment Normal [facility] Comment on above: Result Comment: Sati sfactory for evaluation. Endocervical and/or squamous metaplastic cells (endocervical component) are present. Performed By: #### 4 [id number] ####[facility] [address] [place] [address]Dr. Donis Mancini Cytology Cervical or vaginal smear or scraping studyOrdered By: Jael Nix on 11-02-2022 [facility] Healthcar e CBC AUTO DIFFon 08-11-2022 BASO # 0.0 103/ul Normal 0.0-0.1 [facility] Comment on above: Performed By: #### C T/NGNA #### [facility] [address] [address] [address] Donis Mancini Basophils/100 WBC (Bld) 0.2 % Normal 0.2-2.0 [facility] Comment on above: Performed By: #### C T/NGNA #### [facility] [address] [place] [address] Dr. Donis Mancini EO # 0.1 103/ul Normal 0.0-0.7 [facility] Comment on above: Performed By: #### C T/NGNA #### [facility] [address] [place] [address] Dr. Donis Mancini Eosinophils/100 WBC (Bld) 0.5 % Critically low 0.9-7.0 [facility] Comment on above: Performed By: #### C T/NGNA #### [facility] [address] [place] [address] Dr. Donis Mancini Erythrocyte distribution width (RBC) [Ratio] 12.5 % Normal 11.0-15.0 [facility] Comment on above: Performed By: #### C T/NGNA #### [facility] [address] [place] [address] Dr. Donis Mancini Hematocrit (Bld) [Volume fraction] 35.9 % Critically low 36.0-48.0 [facility] Comment on above: Performed By: #### C T/NGNA #### [facility] [address] [place] [address] Dr. Donis Mancini Hemoglobin (Bld) [Mass/Vol] 12.4 g/dL Normal 12.0-16.0 [facility] Comment on above: Result Comment: michelet ent delivered Performed By: #### C T/NGNA #### [facility] [address] [place] [address] Dr. Donis Mancini IG # 0.10 10e3/ul Critically high 0.00-0.03 [facility] Comment on above: Performed By: #### C T/NGNA #### [facility] [address] [place] [address] Dr. Donis Mancini IG % 0.5 % Normal 0.0-0.5 [facility] Comment on above: Performed By: #### C T/NGNA #### [facility] [address] [place] [address] Dr. Donis Mancini LYMPH # 1.5 103/ul Normal 1.2-3.8 [facility] Comment on above: Performed By: #### C T/NGNA #### [facility] [address] [place] [address] Dr. Donis Mancini Lymphocytes/100 WBC (Bld) 7.6 % Critically low 20.5-60.0 [facility] Comment on above: Performed By: #### C T/NGNA #### [facility] [address] [place] [address] Dr. oDnis Mancini MANUAL DIFF REQ NO Normal [facility] Comment on above: Performed By: #### C T/NGNA #### [facility] [address] [place] [address] Dr. Donis Mancini MCH (RBC) [Entitic mass] 32.2 pg Normal 26.7-34.0 [facility] Comment on above: Performed By: #### C T/NGNA #### [facility] [address] [place] [address] Dr. Donis Mancini MCHC (RBC) [Mass/Vol] 34.5 g/dL Normal 29.9-35.2 [facility] Comment on above: Performed By: #### C T/NGNA #### [facility] [address] [place] [address] Dr. Donis Mancini MCV (RBC) [Entitic vol] 93.2 fL Normal 81.0-99.0 [facility] Comment on above: Performed By: #### C T/NGNA #### [facility] [address] [place] [address] Dr. Donis Mancini MONO # 1.3 103/ul Critically high 0.3-0.8 [facility] Comment on above: Performed By: #### C T/NGNA #### [facility] [address] [place] [address] Dr. Donis Mancini Monocytes/100 WBC (Bld) 6.8 % Normal 1.7-12.0 [facility] Comment on above: Performed By: #### C T/NGNA #### [facility] [address] [place] [address] Dr. Donis Mancini NEUT # 16.2 103/ul Critically high 1.4-6.5 [facility] Comment on above: Performed By: #### C T/NGNA #### [facility] [address] [place] [address] Dr. Donis Mancini Neutrophils/100 WBC (Bld) 84.4 % Critically high 43.0-75.0 [facility] Comment on above: Performed By: #### C T/NGNA #### [facility] [address] [place] [address] Dr. Donis Mancini Platelet mean volume (Bld) [Entitic vol] 11.8 fL Normal 9.5-13.5 [facility] Comment on above: Performed By: #### C T/NGNA #### [facility] [address] [place] [address] Dr. Donis Mancini PLT 156 103/ul Normal 150-450 [facility] Comment on above: Performed By: #### C T/NGNA #### [facility] [address] [place] [address] Dr. Donis Mancini RBC 3.85 106/ul Critically low 4.20-5.40 [facility] Comment on above: Performed By: #### C T/NGNA #### [facility] [address] [place] [address] Dr. Donis Mancini WBC 19.2 103/ul Critically high 4.0-11.0 [facility] Comment on above: Performed By: #### C T/NGNA #### [facility] [address] [place] [address] Dr. Donis Mancini [facility]27 SARS-CoV-2 (COVID-19) RNA INESSA+probe Ql (Unsp spec) Not detected Normal NOT DETECTED [facility] Comment on above: Result Comment: When diagnostic [...] for this test is supported by the [place] of Health and Human Service's declaration that [...] be used). Performed By: #### C VDTBH ####[facility] [address] [place], [place] [address]Dr. Donis Mancini DRUG SCREEN RAPID (URINE)on 08-10-2022 AMP Negative Normal NEGATIVE [facility] Comment on above: Performed By: #### D RUGRPD ####[facility] [address] [place], [place] [address]Dr. Donis Mancini BAR Negative Normal NEGATIVE [facility] Comment on above: Performed By: #### D RUGRPD ####[facility] [address] [place], [place] [address]Dr. Donis Mancini BUP Negative Normal NEGATIVE [facility] Comment on above: Performed By: #### D RUGRPD ####[facility] [address] [place], [place] [address]Dr. Donis Mancini BZO Negative Normal NEGATIVE [facility] Comment on above: Performed By: #### D RUGRPD ####[facility] [address] [place], [place] [address]Dr. Donis Mancini ALEXA Negative Normal NEGATIVE [facility] Comment on above: Performed By: #### D RUGRPD ####[facility] [address] [place], [place] [address]Dr. Doins Mancini CUT-OFFS SEE BELOW Normal [facility] Comment on above: Result Comment: AMP (Amphetamine): 500ng/mL, BAR (Barbituates): 200 ng/mL, BZO (Benzodiazepines): 150 ng/mL, BUP (Buprenorphine): 10 ng/mL, ALEXA (Cocaine): 150 ng/mL, mAMP (Methamphetamine): 500 ng/mL, MTD (Methadone): 200 ng/mL, OPI (Opiates): 100 ng/mL, OXY (Oxycodone): 100 ng/mL, PCP (Phencyclidine): 25 ng/mL, PPX (Propoxyphene): 300 ng/mL, THC (Cannabinoids): 50 ng/mL, TCA (Trycyclic Antidepressants): 300 ng/mL Performed By: #### D RUGRPD ####[facility] [id number] [place], [place] [address]Dr. Donis [facility] DRUG CUT HEADER DRUG CLASS TEST SYSTEM CUT-OFF CONCENTRATIONS ARE FOLLOWS: Normal [facility] Comment on above: Performed By: #### D RUGRPD ####[facility] Kdczdxunmu[address] [place], [place] [address]Dr. Donis Mancini mAMP Negative Normal NEGATIVE [facility] Comment on above: Performed By: #### D RUGRPD ####[facility] Irialngtqw13[address] [place], [place] [address]Dr. Donis Mancini MTD Negative Normal NEGATIVE [facility] Comment on above: Performed By: #### D RUGRPD ####[facility] Vcdcdzqfrp[address] [place], [place] [address]Dr. Donis Mancini OPI Negative Normal NEGATIVE [facility] Comment on above: Performed By: #### D RUGRPD ####[facility] Thgovvdgcq[address] [place], [place] [address]Dr. Laceyjavi Mancini OXY Negative Normal NEGATIVE [facility] Comment on above: Performed By: #### D RUGRPD ####[facility] Njrncs[address]em[address] [place], [place] [address]Dr. Donis Mancini PCP Negative Normal NEGATIVE [facility] Comment on above: Performed By: #### D RUGRPD ####[facility] Oxdnlcmupw[address] [place], [place] [address]Dr. Donis Mancini PPX Negative Normal NEGATIVE [facility] Comment on above: Performed By: #### D RUGRPD ####[facility] Fumqcmxoix[address] [place], [place] [address]Dr. Laceyjavi Mancini TCA Negative Normal NEGATIVE [facility] Comment on above: Performed By: #### D RUGRPD ####[facility] Swfhgtcvax0691 [place], [place] [address]Gb. Donis Mancini THC Negative Normal NEGATIVE [facility] Comment on above: Performed By: #### D RUGRPD ####[facility] Xuvhworzet6169 [place], [place] [address]Mm. Donis Mancini TYPE AND SCREENon 08-10-2022 TYPE AND SCREEN Negative Normal The [facility] Comment on above: Performed By: #### T NS ####[facility] Wewuzuxwjc6984 [place], [place] [address]Yh. Donis Mancini US PREG BIOPHY W NON [...] ESTEFANY BENNETT Date: 2022-08-10 07:18 Normal [facility] US PREG GROWTHon 08-10-2022 US PREG GROWTH [...] growth detailed above. Electronically authenticated by: ESTEFANY SONIYASANTO Date: 2022-08-10 07:16 Normal [facility] CBC AUTO DIFFon 08-09-2022 BASO # 0.0 103/ul Normal 0.0-0.1 [facility] Comment on above: Performed By: #### C BC ####[facility] [address] [place] [address]Dr. Donis Mancini Basophils/100 WBC (Bld) 0.2 % Normal 0.2-2.0 [facility] Comment on above: Performed By: #### C BC ####[facility] Njkr[address]clan[address] [place], [place] [address]DrGene Mancini EO # 0.4 103/ul Normal 0.0-0.7 [facility] Comment on above: Performed By: #### C BC ####[facility] Xirrzsfani[address] [place], [place] [address]DrGene Mancini Eosinophils/100 WBC (Bld) 2.8 % Normal 0.9-7.0 [facility] Comment on above: Performed By: #### C BC ####[facility] Mvezvzkozj[address] [place], [place] [address]DrGene Mancini Erythrocyte distribution width (RBC) [Ratio] 12.2 % Normal 11.0-15.0 [facility] Comment on above: Performed By: #### C BC ####[facility] Kkvwkxdman[address] [place], [place] [address]Dr. Donis Mancini Hematocrit (Bld) [Volume fraction] 41.4 % Normal 36.0-48.0 [facility] Comment on above: Performed By: #### C BC ####[facility] Tauimaqsjy739[address] [place], [place] [address]DrGene Mancini Hemoglobin (Bld) [Mass/Vol] 14.4 g/dL Normal 12.0-16.0 [facility] Comment on above: Performed By: #### C BC ####[facility] Sbgoewjgwc[address] [place], [place] [address]DrGene Mancini IG # 0.06 10e3/ul Critically high 0.00-0.03 [facility] Comment on above: Performed By: #### C BC ####[facility] [address] [place] [address]DrGene Mancini IG % 0.5 % Normal 0.0-0.5 [facility] Comment on above: Performed By: #### C BC ####[facility] [address] [place] [address]DrGene Mancini LYMPH # 1.5 103/ul Normal 1.2-3.8 [facility] Comment on above: Performed By: #### C BC ####[facility] Kgfwwsmsjb9236 [place] [address]DrGene Mancini Lymphocytes/100 WBC (Bld) 11.7 % Critically low 20.5-60.0 [facility] Comment on above: Performed By: #### C BC ####[facility] Mpcrdrirld[address] [place], [place] [address]DrGene Mancini MANUAL DIFF REQ NO Normal [facility] Comment on above: Performed By: #### C BC ####[facility] Gesvcbympx[address] [place] [address]DrGene Mancini MCH (RBC) [Entitic mass] 31.9 pg Normal 26.7-34.0 [facility] Comment on above: Performed By: #### C BC ####[facility] Ts[address]uepbdm[address] [place] [address]DrGnee Mancini MCHC (RBC) [Mass/Vol] 34.8 g/dL Normal 29.9-35.2 [facility] Comment on above: Performed By: #### C BC ####[facility] Bkrhnljfgv1375 [place] [address]DrGene Mancini MCV (RBC) [Entitic vol] 91.8 fL Normal 81.0-99.0 [facility] Comment on above: Performed By: #### C BC ####[facility] Rawvobcxmy[address] [place], [place] [address]DrGene Mancini MONO # 1.0 103/ul Critically high 0.3-0.8 [facility] Comment on above: Performed By: #### C BC ####[facility] Ordiftwqvl[address] [place] [address]Dr. Donis Mancini Monocytes/100 WBC (Bld) 7.5 % Normal 1.7-12.0 [facility] Comment on above: Performed By: #### C BC ####[facility] Mw[address]vtuzmel[address] [place] [address]Dr. Donis Mancini NEUT # 10.0 103/ul Critically high 1.4-6.5 The [facility] Comment on above: Performed By: #### C BC ####[facility] Vi[address]emef[address] [place] [address]Dr. Donis Mancini Neutrophils/100 WBC (Bld) 77.3 % Critically high 43.0-75.0 [facility] Comment on above: Performed By: #### C BC ####[facility] Mqdnvinptj[address] [place], [place] [address]Dr. Donis Mancini Platelet mean volume (Bld) [Entitic vol] 11.6 fL Normal 9.5-13.5 [facility] Comment on above: Performed By: #### C BC ####[facility] Idxfffmsyv[address] [place], [place] [address]Dr. Donis Mancini PLT 184 103/ul Normal 150-450 [facility] Comment on above: Performed By: #### C BC ####[facility] [address]ngfael[address] [place] [address]Dr. Donis Mancini RBC 4.51 106/ul Normal 4.20-5.40 [facility] Comment on above: Performed By: #### C BC ####[facility] [address]yiumrjwrs[address] [place], [place] [address]Dr. Donis Mancini WBC 12.9 103/ul Critically high 4.0-11.0 The [facility] Comment on above: Performed By: #### C BC ####[facility] Iyjhxtkyjn[address] [place], [place] [address]Dr. Donis Mancini LDHon 08-09-2022 LDH 167 U/L Normal 81-234 [facility] Comment on above: Performed By: #### C T/NGNA #### [facility] [address] [place] [address] Dr. Donis Mancini PROF 14(COMP METB)on 022 Albumin [Mass/Vol] 2.7 g/dL Critically low 3.4-5.0 [facility] Comment on above: Performed By: #### C T/NGNA #### [facility] [address] [place] [address] Dr. Donis Mancini Albumin/Globulin [Mass ratio] 0.6 {ratio} Normal [facility] Comment on above: Performed By: #### C T/NGNA #### [facility] [address] [place] [address] Dr. Donis Mancini ALP [Catalytic activity/Vol] 176 U/L Critically high 46-116 [facility] Comment on above: Performed By: #### C T/NGNA #### [facility] [address] [place] [address] Dr. Donis Mancini ALT [Catalytic activity/Vol] 20 U/L Normal 14-59 [facility] Comment on above: Performed By: #### C T/NGNA #### [facility] [address] [place] [address] Dr. Donis Mancini Anion gap [Moles/Vol] 12.9 mmol/L Normal [facility] Comment on above: Performed By: #### C T/NGNA #### [facility] [address] [place] [address] Dr. Donis Mancini AST [Catalytic activity/Vol] 20 U/L Normal 15-37 [facility] Comment on above: Performed By: #### C T/NGNA #### [facility] [address] [place] [address] Dr. Donis Mancini Bilirubin [Mass/Vol] 0.1 mg/dL Critically low 0.2-1.0 [facility] Comment on above: Performed By: #### C T/NGNA #### [facility] [address] [place] [address] Dr. Donis Mancini Calcium [Mass/Vol] 9.1 mg/dL Normal 8.5-10.[address] [facility] Comment on above: Performed By: #### C T/NGNA #### [facility] [address] [place] [address] Dr. Donis Mancini Chloride [Moles/Vol] 104 mmol/L Normal 98-107 [facility] Comment on above: Performed By: #### C T/NGNA #### [facility] [address] [place] [address] [address] Donis Mancini CO2 [Moles/Vol] 22.9 mmol/L Normal 21.0-32.0 [facility] Comment on above: Performed By: #### C T/NGNA #### [facility] [address] [place] [address] Dr. Donis Mancini Creatinine [Mass/Vol] 0.43 mg/dL Critically low 0.55-1.02 [facility] Comment on above: Performed By: #### C T/NGNA #### [facility] [address] [place] [address] Dr. Donis Mancini EGFR-AF MONTENEGRIN >60 Normal >=60 The [facility] Comment on above: Performed By: #### C T/NGNA #### [facility] [address] [place] [address] Dr. Donis Mancini EGFR-NON AF MONTENEGRIN >60 Normal >=60 [facility] Comment on above: Performed By: #### C T/NGNA #### [facility] [address] [place] [address] Dr. Donis Mancini Globulin (S) [Mass/Vol] 4.2 g/dL Normal [facility] Comment on above: Performed By: #### C T/NGNA #### [facility] [address] [place] [address] Dr. Donis Mancini Glucose [Mass/Vol] 95 mg/dL Normal 74-[address] [facility] Comment on above: Performed By: #### C T/NGNA #### [facility] [address] [place] [address] Dr. Donis Mancini Potassium [Moles/Vol] 3.8 mmol/L Normal 3.5-5.1 [facility] Comment on above: Performed By: #### C T/NGNA #### [facility] [address] [place] [address] Dr. Donis Mancini Protein [Mass/Vol] 6.9 g/dL Normal 6.4-8.[address] [facility] Comment on above: Performed By: #### C T/NGNA #### [facility] [address] [place] [address] Dr. Donis Mancini Sodium [Moles/Vol] 136 mmol/L Normal 136-[address] [facility] Comment on above: Performed By: #### C T/NGNA #### [facility] [address] [place] [address] Dr. Donis Mancini Urea nitrogen [Mass/Vol] 10.0 mg/dL Normal 7.0-18.0 [facility] Comment on above: Performed By: #### C T/NGNA #### [facility] [address] [place] [address] Dr. Donis Mancini Urea nitrogen/Creatinine [Mass ratio] 23.3 mg/mg Normal [facility] Comment on above: Performed By: #### C T/NGNA #### [facility] [address] [place] [address] Dr. Donis Mancini URIC ACID SERUMon 08-09-2022 Urate [Mass/Vol] 3.6 mg/dL Normal 2.6-6.0 [facility] Comment on above: Performed By: #### C T/NGNA #### [facility] [address] [place] [address] Dr. Donis Mancini CBC AUTO DIFFon 08-07-2022 BASO # 0.0 103/ul Normal 0.0-0.1 [facility] Comment on above: Performed By: #### U AMIC #### [facility] [address] [place] [address] Dr. Donis Mancini Basophils/100 WBC (Bld) 0.2 % Normal 0.2-2.0 [facility] Comment on above: Performed By: #### U AMIC #### [facility] [address] [place] [address] [address] Donis Mancini EO # 0.2 103/ul Normal 0.0-0.7 [facility] Comment on above: Performed By: #### U AMIC #### [facility] [address] [place] [address] [address] Donis Mancini Eosinophils/100 WBC (Bld) 1.8 % Normal 0.9-7.0 [facility] Comment on above: Performed By: #### U AMIC #### [facility] [address] [place] [address] [address] Donis Mancini Erythrocyte distribution width (RBC) [Ratio] 12.3 % Normal 11.0-15.0 [facility] Comment on above: Performed By: #### U AMIC #### [facility] [address] [place] [address] Dr. Donis Mancini Hematocrit (Bld) [Volume fraction] 45.7 % Normal 36.0-48.0 [facility] Comment on above: Performed By: #### U AMIC #### [facility] [address] [place] [address] Dr. Donis Mancini Hemoglobin (Bld) [Mass/Vol] 16.0 g/dL Normal 12.0-16.0 [facility] Comment on above: Performed By: #### U AMIC #### [facility] [address] [place] [address] Dr. Donis Mancini IG # 0.07 10e3/ul Critically high 0.00-0.03 [facility] Comment on above: Performed By: #### U AMIC #### [facility] [address] [place] [address] Dr. Donis Mancini IG % 0.5 % Normal 0.0-0.5 [facility] Comment on above: Performed By: #### U AMIC #### [facility] [address] [place] [address] [address] Donis Mancini LYMPH # 1.5 103/ul Normal 1.2-3.8 [facility] Comment on above: Performed By: #### U AMIC #### [facility] [address] [place] [address] [address] Donis Mancini Lymphocytes/100 WBC (Bld) 11.2 % Critically low 20.5-60.0 [facility] Comment on above: Performed By: #### U AMIC #### [facility] [address] [place] [address] [address] Donis Mancini MANUAL DIFF REQ NO Normal [facility] Comment on above: Performed By: #### U AMIC #### [facility] [address] [place] [address] [address] Donis Mancini MCH (RBC) [Entitic mass] 32.0 pg Normal 26.7-34.0 [facility] Comment on above: Performed By: #### U AMIC #### [facility] [address] [place] [address] [address] Donis Mancini MCHC (RBC) [Mass/Vol] 35.0 g/dL Normal 29.9-35.2 [facility] Comment on above: Performed By: #### U AMIC #### [facility] [address] [place] [address] [address] Donis Mancini MCV (RBC) [Entitic vol] 91.4 fL Normal 81.0-99.0 [facility] Comment on above: Performed By: #### U AMIC #### [facility] [address] [place] [address] [address] Donis Mancini MONO # 0.9 103/ul Critically high 0.3-0.8 [facility] Comment on above: Performed By: #### U AMIC #### [facility] [address] [place] [address] [address] Donis Mancini Monocytes/100 WBC (Bld) 6.3 % Normal 1.7-12.0 [facility] Comment on above: Performed By: #### U AMIC #### [facility] [address] [place] [address] [address] Donis Mancini NEUT # 10.9 103/ul Critically high 1.4-6.5 [facility] Comment on above: Performed By: #### U AMIC #### [facility] [address] [place] [address] [address] Donis Mancini Neutrophils/100 WBC (Bld) 80.0 % Critically high 43.0-75.0 [facility] Comment on above: Performed By: #### U AMIC #### [facility] [address] [place] [address] [address] Donis Mancini Platelet mean volume (Bld) [Entitic vol] 11.5 fL Normal 9.5-13.5 [facility] Comment on above: Performed By: #### U AMIC #### [facility] [address] [place] [address] [address] Donis Mancini PLT 182 103/ul Normal 150-450 [facility] Comment on above: Performed By: #### U AMIC #### [facility] [address] [place] [address] [address] Donis Mancini RBC 5.00 106/ul Normal 4.20-5.40 [facility] Comment on above: Performed By: #### U AMIC #### [facility] [address] [place] [address] [address] Donis Mancini WBC 13.6 103/ul Critically high 4.0-11.0 [facility] Comment on above: Performed By: #### U AMIC #### [facility] [address] [place] [address] [address] Donis Mancini LDHon 08-07-2022 LDH 171 U/L Normal 81-234 [facility] Comment on above: Performed By: #### C MP, URIC, LDH ####[facility] [address]sp[address] [place] [id number]. Donis Mancini PROF 14(COMP METB)on 022 Albumin [Mass/Vol] 2.9 g/dL Critically low 3.4-5.0 [facility] Comment on above: Performed By: #### C MP, URIC, LDH ####[facility] [address] [place] [id number]. Donis Mancini Albumin/Globulin [Mass ratio] 0.6 {ratio} Normal [facility] Comment on above: Performed By: #### C MP, URIC, LDH ####[facility] [address] [place] [address]Dr. Donis Live ALP [Catalytic activity/Vol] 192 U/L Critically high 46-116 [facility] Comment on above: Performed By: #### C MP, URIC, LDH ####[facility] [address] [place], [place] [address]Dr. Laceyjavi Mancini ALT [Catalytic activity/Vol] 23 U/L Normal 14-59 [facility] Comment on above: Performed By: #### C MP, URIC, LDH ####[facility] Heoqjtgsbf[address] [place], [place] [address]Dr. Donis Mancini Anion gap [Moles/Vol] 14.4 mmol/L Normal [facility] Comment on above: Performed By: #### C MP, URIC, LDH ####[facility] [address] [place], [place] [address]Dr. Donis Mancini AST [Catalytic activity/Vol] 23 U/L Normal 15-37 [facility] Comment on above: Performed By: #### C MP, URIC, LDH ####[facility] [address]outt[address] [place], [place] [address]Dr. Donis Mancini Bilirubin [Mass/Vol] 0.2 mg/dL Normal 0.2-1.0 [facility] Comment on above: Performed By: #### C MP, URIC, LDH ####[facility] [address] [place], [place] [address]Dr. Donis Mancini Calcium [Mass/Vol] 9.4 mg/dL Normal 8.5-10.1 [facility] Comment on above: Performed By: #### C MP, URIC, LDH ####[facility] [address] [place], [place] [address]Dr. Donis Mancini Chloride [Moles/Vol] 104 mmol/L Normal 98-107 [facility] Comment on above: Performed By: #### C MP, URIC, LDH ####[facility] [address] [place] [id number]. Donis Mancini CO2 [Moles/Vol] 21.7 mmol/L Normal 21.0-32.0 [facility] Comment on above: Performed By: #### C MP, URIC, LDH ####[facility] [address] [place] [id number]. Donis Mancini Creatinine [Mass/Vol] 0.46 mg/dL Critically low 0.55-1.02 [facility] Comment on above: Performed By: #### C MP, URIC, LDH ####[facility] [address] [place] [address]Dr. Donis Mancini EGFR-AF MONTENEGRIN >60 Normal >=60 [facility] Comment on above: Performed By: #### C MP, URIC, LDH ####[facility] [address] [place] [address]Dr. Donis Mancini EGFR-NON AF MONTENEGRIN >60 Normal >=60 [facility] Comment on above: Performed By: #### C MP, URIC, LDH ####[facility] X[address]rfxxcnj[address] [place] [address]Dr. Donis Mancini Globulin (S) [Mass/Vol] 4.6 g/dL Normal [facility] Comment on above: Performed By: #### C MP, URIC, LDH ####[facility] [address] [place] [address]Dr. Donis Mancini Glucose [Mass/Vol] 89 mg/dL Normal 74-[address] [facility] Comment on above: Performed By: #### C MP, URIC, LDH ####[facility] [address]wt[address] [place] [id number]. Donis Mancini Potassium [Moles/Vol] 4.1 mmol/L Normal 3.5-5.1 [facility] Comment on above: Performed By: #### C MP, URIC, LDH ####[facility] [address] [place] [address]Dr. Donis Mancini Protein [Mass/Vol] 7.5 g/dL Normal 6.4-8.[address] [facility] Comment on above: Performed By: #### C MP, URIC, LDH ####[facility] E[address]setd4[address] [place] [address]DrGene Mancini Sodium [Moles/Vol] 136 mmol/L Normal 136-145 [facility] Comment on above: Performed By: #### C MP, URIC, LDH ####[facility] [address]azj[address] [place] [address]Dr. Donis Mancini Urea nitrogen [Mass/Vol] 8.0 mg/dL Normal 7.0-18.0 [facility] Comment on above: Performed By: #### C MP, URIC, LDH ####[facility] [address]swl[address] [place] [address]Dr. Donis Mancini Urea nitrogen/Creatinine [Mass ratio] 17.4 mg/mg Normal [facility] Comment on above: Performed By: #### C MP, URIC, LDH ####[facility] [address] [place] [address]DrGene Mancini PROTIMEon 08-07-2022 INR Coag (PPP) [Relative time] {INR} Normal [facility] Comment on above: Performed By: #### U AMIC #### [facility] [address] [place] [address] Dr. Donis Mancini INR GUIDELINES SEE BELOW Normal [facility] Comment on above: Result Comment: NICCI RED INR: 2.0 - 3.0 CONDITIONS NOT LISTED BELOW 2.5 - 3.5 FOR PROSTHETIC HEART VALVE REPLACEMENT 2.5 - 3.5 RECURRENT THROMBOSIS Performed By: #### U AMIC #### [facility] [address] [place] [address] Dr. Donis Mancini PT Coag (PPP) [Time] 9.8 s Normal 9.0-11.6 [facility] Comment on above: Performed By: #### U AMIC #### [facility] [address] [place] [address] Dr. Donis Mancini PTTon 08-07-2022 aPTT Coag (Bld) [Time] 28.5 s Normal 22.3-36.2 [facility] Comment on above: Performed By: #### U AMIC #### [facility] [address] [place] [address] Dr. Donis Mancini UA (CLEAN/CATCH) PREFORM PLATE MAKER/MICRO I F IND.on 08-07-2022 Bilirubin Ql (U) Negative Normal NEGATIVE [facility] Comment on above: Performed By: #### U AMIC #### [facility] [address] [place] [address] Dr. Donis Mancini Clarity (U) CLEAR Normal CLEAR [facility] Comment on above: Performed By: #### U AMIC #### [facility] [address] [place] [address] [address] Donis Mancini Color (U) LT. YELLOW Normal YELLOW [facility] Comment on above: Performed By: #### U AMIC #### [facility] [address] [place] [address] Dr. Donis Mancini Glucose Ql (U) Negative Normal NEGATIVE [facility] Comment on above: Performed By: #### U AMIC #### [facility] [address] [place] [address] Dr. Donis Mancini Hemoglobin Ql (U) Negative Normal NEGATIVE [facility] Comment on above: Performed By: #### U AMIC #### [facility] [address] [place] [address] Dr. Donis Mancini Ketones Ql (U) Negative Normal NEGATIVE [facility] Comment on above: Performed By: #### U AMIC #### [facility] [address] [place] [address] Dr. Donis Mancini LEUKOCYTES Negative Normal NEGATIVE [facility] Comment on above: Performed By: #### U AMIC #### [facility] [address] [place] [address] Dr. Donis Mancini Nitrite Ql (U) Negative Normal NEGATIVE [facility] Comment on above: Performed By: #### U AMIC #### [facility] [address] [place] [address] Dr. Donis Mancini pH (U) 7.0 [pH] Normal 5-9 [facility] Comment on above: Performed By: #### U AMIC #### [facility] [address] [address] [address] Donis Mancini SPEC GRAVITY <=1.005 Abnormal 1.005-<=1.02 5 [facility] Comment on above: Performed By: #### U AMIC #### [facility] [address] [place] [address] [address] Donis Mancini UA PROTEIN Negative Normal NEGATIVE/ TRACE [facility] Comment on above: Performed By: #### U AMIC #### [facility] [address] [place] [address] [address] Donis Mancini UR MICRO IND NOT INDICATED Normal [facility] Comment on above: Performed By: #### U AMIC #### [facility] [address] [address] [address] Donis Mancini Urobilinogen Qn (U) 0.2 {Sarah'U}/dL Normal 0.2 - 1. 0 [facility] Comment on above: Performed By: #### U AMIC #### [facility] [address] [address] [address] Donis Mancini URIC ACID SERUMon 08-07-2022 Urate [Mass/Vol] 3.8 mg/dL Normal 2.6-6.0 [facility] Comment on above: Performed By: #### C MP, URIC, LDH ####[facility] [address] [place] [address]Dr. Donis Mancini URINE T PROTEIN CREAT RATIOo n 08-07-2022 UR TOTAL PROTEIN <6.0 Normal <=12.0 [facility] Comment on above: Performed By: #### C T/NGNA #### [facility] [address] [address] [address] Donis Mancini URINE CREAT 13.45 mg/dL Critically low 20.00-300.00 [facility] Comment on above: Performed By: #### C T/NGNA #### [facility] [address] [address] [address] Donis Mancini US PREG BIOPHY W [...] COCO STERN Date: 2022-08-01 08:31 Normal [facility] CHLAMYDIA/GONOCOCCUS INESSA ( AB/URINE/PAPon 07-31-2022 Chlamydia trachomatis, INESSA Negative Normal Negative [facility] Comment on above: Performed By: #### C T/NGNA #### [facility] [address] [place] [address] Dr. Donis Mancini Neisseria gonorrhoeae, INESSA Negative Normal Negative [facility] Comment on above: Performed By: #### C T/NGNA #### [facility] [address] [place] [address] Dr. Donis Mancini VAGINITIS/VAGINOSIS DNA PROB Domenic 07-31-2022 Simeon species Negative Normal Negative [facility] Comment on above: Performed By: #### V AGINT ####[facility] [address] [place], [place] [address]DrGene Mancini Gardnerella vaginalis Negative Normal Negative [facility] Comment on above: Performed By: #### V AGINT ####[facility] [address] [place] [address]DrGene Mancini Trichomonas vaginalis Negative Normal Negative [facility] Comment on above: Performed By: #### V AGINT ####[facility] [address] [place] [address]DrGene Mancini GROUP B STREP CULTUREon S. agalactiae Ag Ql (Unsp spec) Culture Observations: NEGATIVE FOR GROUP B STREPTOCOCCUS. Normal [facility] Comment on above: Performed By: #### G BSCX #### [facility] [address] [address] [address] Donis Mancini US PREG BIOPHY W [...] COCO STERN Date: 2022-07-25 09:41 Normal [facility] US PREG GROWTHon 07-11-2022 US PREG GROWTH [...] ESTEFANY BENNETT Date: 2022-07-11 19:28 Normal [facility] Covid-19 PCR (CVDTB)on 06-26 SARS-CoV-2 (COVID-19) RNA INESSA+probe Ql (Unsp spec) Not detected Normal NOT DETECTED [facility] Comment on above: Result Comment: When diagnostic [...] for this test is supported by the [place] of Health and Human Service's declaration that [...] used). Performed By: #### C T/TARAS #### [facility] [address] [place] [address] Dr. Donis Mancini GTT 3 HR PREGon 06-03-2022 Glucose [Mass/Vol] 94 mg/dL Normal 74-106 [facility] Comment on above: Performed By: #### U AMIC #### [facility] [address] [place] [address] Dr. Donis Mancini Glucose [Mass/Vol] 147 mg/dL Normal [facility] Comment on above: Performed By: #### U AMIC #### [facility] [address] [place] [address] Dr. Donis Mancini Glucose [Mass/Vol] 159 mg/dL Normal [facility] Comment on above: Performed By: #### U AMIC #### [facility] [address] [place] [address] Dr. Donis Mancini Glucose [Mass/Vol] 151 mg/dL Normal The [facility] Comment on above: Performed By: #### U AMIC #### [facility] [address] [place] [address] Dr. Donis Mancini GLUCOSE - 1HRon 05-21-2022 Glucose [Mass/Vol] 141 mg/dL Critically high 74-106 [facility] Comment on above: Performed By: #### U AMIC #### [facility] [address] [place] [address] Dr. Donis Mancini HEMOGRAM AND PLATELon 2021 Hematocrit (Bld) [Volume fraction] 39.1 % Normal 36.0-48.0 [facility] Comment on above: Performed By: #### U AMIC #### [facility] [address] [address] [address] Donis Mancini Hemoglobin (Bld) [Mass/Vol] 13.1 g/dL Normal 12.0-16.0 [facility] Comment on above: Performed By: #### U AMIC #### [facility] [address] [address] [address] Donis Mancini MCH (RBC) [Entitic mass] 32.3 pg Normal 26.7-34.0 [facility] Comment on above: Performed By: #### U AMIC #### [facility] [address] [address] [address] Donis Mancini MCHC (RBC) [Mass/Vol] 33.5 g/dL Normal 29.9-35.2 [facility] Comment on above: Performed By: #### U AMIC #### [facility] [address] [address] [address] Donis Mancini MCV (RBC) [Entitic vol] 96.5 fL Normal 81.0-99.0 [facility] Comment on above: Performed By: #### U AMIC #### [facility] [address] [address] [address] Donis Mancini PLT 220 103/ul Normal 150-450 [facility] Comment on above: Performed By: #### U AMIC #### [facility] [address] [address] [address] Donis Mancini RBC 4.05 106/ul Critically low 4.20-5.40 [facility] Comment on above: Performed By: #### U AMIC #### [facility] [address] [address] [address] Donis Mancini WBC 12.8 103/ul Critically high 4.0-11.0 [facility] Comment on above: Performed By: #### U AMIC #### [facility] [address] [address] [address] Donis Mancini US PREG BIOPHYSICAL NO [...] ESTEFANY BENNETT Date: 2022-05-11 06:25 Normal [facility] CULTURE URINEon 05-10-2022 CULTURE URINE Culture Observations: MODERATE GROWTH OF MIXED GENITAL RAMBO. NO POTENTIAL PATHOGENS SEEN. Normal [facility] Comment on above: Performed By: #### U RCX #### [facility] [address] [address] [address] Donis Mancini UA RANDOM W/MICROSCOPICon BACTERIA LARGE Abnormal NONE SEEN [facility] Comment on above: Performed By: #### U AMIC ####[facility] [address] [address]Dr. Donis Mancini Bilirubin Ql (U) Negative Normal NEGATIVE [facility] Comment on above: Performed By: #### U AMIC ####[facility] [address] [address]Dr. Donis Mancini CAST NONE SEEN Normal NONE SEEN [facility] Comment on above: Performed By: #### U AMIC ####[facility] [address] [address]Dr. Donis Mancini Clarity (U) CLEAR Normal CLEAR [facility] Comment on above: Performed By: #### U AMIC ####[facility] [address] [place] [address]Dr. Donis Mancini Color (U) YELLOW Normal YELLOW [facility] Comment on above: Performed By: #### U AMIC ####[facility] [address] [place] [address]Dr. Donis Mancini Crystals LM Nom (Urine sed) NONE SEEN Normal NONE SEEN [facility] Comment on above: Performed By: #### U AMIC ####[facility] [address] [place], [place] [address]Dr. Donis Mancini Epithelial cells LM Ql (Urine sed) MODERATE Abnormal NONE SEEN /RARE [facility] Comment on above: Performed By: #### U AMIC ####[facility] [address] [place], [place] [address]Dr. Donis Mancini Glucose Ql (U) 250 mg/dl Abnormal NEGATIVE The [facility] Comment on above: Performed By: #### U AMIC ####[facility] [address] [place], [place] [address]Dr. Donis Mancini Hemoglobin Ql (U) TRACE-INTACT Abnormal NEGATIVE [facility] Comment on above: Performed By: #### U AMIC ####[facility] [address] [place], [place] [address]Dr. Donis Mancini Ketones Ql (U) Negative Normal NEGATIVE [facility] Comment on above: Performed By: #### U AMIC ####[facility] [address] [place], [place] [address]Dr. Donis Mancini LEUKOCYTES LARGE Abnormal NEGATIVE [facility] Comment on above: Performed By: #### U AMIC ####[facility] [address] [place], [place] [address]Dr. Donis Mancini MUCOUS NONE SEEN Normal NONE SEEN [facility] Comment on above: Performed By: #### U AMIC ####[facility] [address] [place], [place] [address]Dr. Donis Mancini Nitrite Ql (U) Negative Normal NEGATIVE [facility] Comment on above: Performed By: #### U AMIC ####[facility] [address] [place], [place] [address]Dr. Donis Mancini pH (U) 6.0 [pH] Normal 5-9 [facility] Comment on above: Performed By: #### U AMIC ####[facility] [address] [place] [address]Dr. Donis Mancini RBC 2-5 Abnormal 0-2 [facility] Comment on above: Performed By: #### U AMIC ####[facility] [address] [place], [place] [address]Dr. Donis Mancini SPEC GRAVITY <=1.005 Abnormal 1.005-<=1.02 5 [facility] Comment on above: Performed By: #### U AMIC ####[facility] [address] [place], [place] [address]Dr. Donis Mancini UA PROTEIN Negative Normal NEGATIVE/ TRACE [facility] Comment on above: Performed By: #### U AMIC ####[facility] [address] [place], [place] [address]Dr. Donis Mancini Urobilinogen Qn (U) 0.2 {Sarah'U}/dL Normal 0.2 - 1. 0 [facility] Comment on above: Performed By: #### U AMIC ####[facility] [address] [place], [place] [address]Dr. Donis Mancini WBC 10-20 Abnormal NONE SEEN [facility] Comment on above: Performed By: #### U AMIC ####[facility] [address] [place], [place] [address]Dr. Donis Mancini CULTURE URINEon 04-27-2022 CULTURE URINE Culture Observations: LIGHT GROWTH OF MIXED GENITAL RAMBO. NO POTENTIAL PATHOGENS SEEN. Normal [facility] Comment on above: Performed By: #### U RCX ####[facility] [address] [place], [place] [address]Dr. Donis Mancini UA (CLEAN/CATCH) PREFORM PLATE MAKER/MICRO I F IND.on 04-27-2022 Bilirubin Ql (U) Negative Normal NEGATIVE The [facility] Comment on above: Performed By: #### U ACSWENDY UMICRO ####[facility] [address] [place], [place] [address]Dr. Donis Mancini Clarity (U) CLEAR Normal CLEAR [facility] Comment on above: Performed By: #### U ACSWENDY UMICRO ####[facility] [address] [place], [place] [address]Dr. Donis Mancnii Color (U) LT. YELLOW Normal YELLOW [facility] Comment on above: Performed By: #### U ACSWENDY, UMICRO ####[facility] [address] [place] [address]Dr. Donis Mancini Glucose Ql (U) Negative Normal NEGATIVE The [facility] Comment on above: Performed By: #### U ACSIND, UMICRO ####[facility] [address] [place] [address]Dr. Donis Mancini Hemoglobin Ql (U) Negative Normal NEGATIVE [facility] Comment on above: Performed By: #### U ACSWENDY, UMICRO ####[facility] [address] [place] [address]Dr. Laceyjavi Mancini Ketones Ql (U) Negative Normal NEGATIVE The [facility] Comment on above: Performed By: #### U ACSWENDY, UMICRO ####[facility] [address] [place] [address]Dr. Laceyjavi Mancini LEUKOCYTES SMALL Abnormal NEGATIVE [facility] Comment on above: Performed By: #### U ACSWENDY, UMICRO ####[facility] [address] [place] [address]Dr. Donis Live Nitrite Ql (U) Negative Normal NEGATIVE The [facility] Comment on above: Performed By: #### U ACSWENDY, UMICRO ####[facility] [address] [place] [address]Dr. Laceyjavi Mancini pH (U) 7.0 [pH] Normal 5-9 [facility] Comment on above: Performed By: #### U ACSWENDY, UMICRO ####[facility] [address] [place] [address]Dr. Donis Mancini SPEC GRAVITY 1.015 Normal 1.005-<=1.02 5 [facility] Comment on above: Performed By: #### U ACSIND, UMICRO ####[facility] [address] [place] [address]Dr. Donis Mancini UA PROTEIN Negative Normal NEGATIVE/ TRACE [facility] Comment on above: Performed By: #### U ACSIND, UMICRO ####[facility] [address] [place] [address]Dr. Donis Mancini UR MICRO IND INDICATED Normal [facility] Comment on above: Performed By: #### U ACSIND, UMICRO ####[facility] [address] [place] [address]Dr. Donis Mancini Urobilinogen Qn (U) 0.2 {Sarah'U}/dL Normal 0.2 - 1. 0 [facility] Comment on above: Performed By: #### U ACSWENDY, UMICRO ####[facility] [address] [place] [address]Dr. Donis Mancini URINE MICROSCOPIC ONLYon BACTERIA MODERATE Abnormal NONE SEEN [facility] Comment on above: Performed By: #### U ACSWENDY, UMICRO ####[facility] [address] [place], [place] [address]Dr. Donis Mancini Bacteria identified Cx Nom (U) INDICATED Normal [facility] Comment on above: Performed By: #### U ACSWENDY, UMICRO ####[facility] [address] [address]Dr. Donis Mancini CAST NONE SEEN Normal NONE SEEN [facility] Comment on above: Performed By: #### U ACSWENDY, UMICRO ####[facility] [address] [place] [address]Dr. Donis Mancini Crystals LM Nom (Urine sed) NONE SEEN Normal NONE SEEN [facility] Comment on above: Performed By: #### U ACSWENDY, UMICRO ####[facility] [address] [place] [address]Dr. Donis Mancini Epithelial cells LM Ql (Urine sed) MODERATE Abnormal NONE SEEN /RARE [facility] Comment on above: Performed By: #### U ACSIND, UMICRO ####[facility] [address] [address]Dr. Donis Mancini MUCOUS NONE SEEN Normal NONE SEEN [facility] Comment on above: Performed By: #### U ACSIND, UMICRO ####[facility] [address] [place], [place] [address]Sp. Donis Mancini RBC NONE SEEN Abnormal 0-2 [facility] Comment on above: Performed By: #### U DONNA DAMON ####[facility] [address] [place], [place] [address]Vm. Donis Mancini WBC 2-5 Abnormal NONE SEEN [facility] Comment on above: Performed By: #### U DONNA DAMON ####[facility] [address] [place], [place] [address]Hr. Donis Mancini US KIDNEYSon 04-27-2022 US KIDNEYS [...] ANDREAS AN Date: 2022-04-27 17:48 Normal [facility] CULTURE URINEon 04-16-2022 CULTURE URINE Isolate 1 [...] Trimethoprim/Sulfame thoxazole <=20 S F Normal [facility] Comment on above: Performed By: #### U RCX #### [facility] [address] [place] [address] Dr. Donis Mancini US PREG ANATOMY SINGLEon [...] ESTEFANY BENNETT Date: 2022-04-12 22:22 Normal [facility] UA RANDOM W/MICROSCOPICon BACTERIA SMALL Abnormal NONE SEEN [facility] Comment on above: Performed By: #### U AMIC #### [facility] [address] [place] [address] Dr. Donis Mancini Bilirubin Ql (U) Negative Normal NEGATIVE [facility] Comment on above: Performed By: #### U AMIC #### [facility] [address] [place] [address] Dr. Donis Mancini CAST NONE SEEN Normal NONE SEEN [facility] Comment on above: Performed By: #### U AMIC #### [facility] [address] [place] [address] Dr. Donis Mancini Clarity (U) CLEAR Normal CLEAR [facility] Comment on above: Performed By: #### U AMIC #### [facility] [address] [address] [address] Donis Mancini Color (U) LT. YELLOW Normal YELLOW [facility] Comment on above: Performed By: #### U AMIC #### [facility] [address] [place] [address] Dr. Donis Mancini Crystals LM Nom (Urine sed) NONE SEEN Normal NONE SEEN [facility] Comment on above: Performed By: #### U AMIC #### [facility] [address] [place] [address] Dr. Donis Mancini Epithelial cells LM Ql (Urine sed) FEW Abnormal NONE SEEN /RARE [facility] Comment on above: Performed By: #### U AMIC #### [facility] [address] [place] [address] Dr. Donis Mancini Glucose Ql (U) Negative Normal NEGATIVE [facility] Comment on above: Performed By: #### U AMIC #### [facility] [address] [address] [address] Donis Mancini Hemoglobin Ql (U) Negative Normal NEGATIVE [facility] Comment on above: Performed By: #### U AMIC #### [facility] [address] [address] [address] Donis Mancini Ketones Ql (U) Negative Normal NEGATIVE [facility] Comment on above: Performed By: #### U AMIC #### [facility] [address] [place] [address] Dr. Donis Mancini LEUKOCYTES LARGE Abnormal NEGATIVE [facility] Comment on above: Performed By: #### U AMIC #### [facility] [address] [address] [address] Donis Mancini MUCOUS NONE SEEN Normal NONE SEEN [facility] Comment on above: Performed By: #### U AMIC #### [facility] [address] [place] [address] Dr. Donis Mancini Nitrite Ql (U) Negative Normal NEGATIVE [facility] Comment on above: Performed By: #### U AMIC #### [facility] [address] [place] [address] Dr. Donis Mancini pH (U) 5.5 [pH] Normal 5-9 [facility] Comment on above: Performed By: #### U AMIC #### [facility] [address] [place] [address] Dr. Donis Mancini RBC 0-2 Normal 0-2 [facility] Comment on above: Performed By: #### U AMIC #### [facility] [address] [place] [address] Dr. Donis Mancini SPEC GRAVITY <=1.005 Abnormal 1.005-<=1.02 5 [facility] Comment on above: Performed By: #### U AMIC #### [facility] [address] [place] [address] Dr. Donis Mancini UA PROTEIN Negative Normal NEGATIVE/ TRACE [facility] Comment on above: Performed By: #### U AMIC #### [facility] [address] [place] [address] Dr. Donis Mancini Urobilinogen Qn (U) 0.2 {Sarah'U}/dL Normal 0.2 - 1. 0 [facility] Comment on above: Performed By: #### U AMIC #### [facility] [address] [place] [address] Dr. Donis Mancini WBC 5-10 Abnormal NONE SEEN [facility] Comment on above: Performed By: #### U AMIC #### [facility] [address] [place] [address] Dr. Donis Mancini HEP B SURFACE ANTIGEN SCREEN on 01-23-2022 HBsAg Screen Negative Normal Negative [facility] Comment on above: Performed By: #### U AMIC #### [facility] [address] [place], [place] [address] Dr. Donis Mancini HEPATITIS C VIRUS AB W/ REFL EX QUANTon 01-23-2022 HCV AB 0.1 s/co ratio Normal 0.0-0.9 [facility] Comment on above: Performed By: #### H CVPCRR ####[facility] [address] [address]Dr. Donis Mancini Interpretation: Comment Normal [facility] Comment on above: Result Comment: Nega tive Not infected with HCV, unless recent infection is suspected or other evidence exists to indicate HCV infection. Performed By: #### H CVPCRR ####[facility] [address] [place] [id number]. Donis Mancini HIV 1 AND 2 WITH REFLEXon HIV Screen 4th Generation wRfx Non-Reactive Normal Non Reactive [facility] Comment on above: Result Comment: HIV Negative HIV-1/HIV-2 antibodies and HIV-1 p24 antigen were NOT detected. There is no laboratory evidence of HIV infection. Performed By: #### H IV12 ####[facility] [address] [place], [place] [address]Dr. Donis Mancini RPR QUANTon 01-23-2022 Rapid Plasma Reagin, Quant Non-Reactive Normal NonRea<1:1 [facility] Comment on above: Result Comment: Plea se Note: This test does not meet current guidelines for screening and diagnosis of syphilis. This test is intended for following treatment response in patients being treated for syphilis infection. To screen for syphilis infection, a reflex cascade that includes both RPR and a treponema-specific assay should be utilized, such as Treponema pallidum (Syphilis) Screening [place] (252252) or Rapid Plasma Reagin (RPR) Test With Reflex to Quantitative RPR and Confirmatory Treponema pallidum Antibodies (218255). Performed By: #### R PRQ ####[facility] [address] [place], [place] [address]DrGene Mancini RUBELLA AB IGGon 01-23-2022 Rubella Antibodies, IgG 1.60 index Normal Immune >0.99 [facility] Comment on above: Result Comment: Non- immune <0.90 Equivocal 0.90 - 0.99 Immune >0.99 Performed By: #### U AMIC #### [facility] [address] [place] [address] Dr. Donis Mancini CBC AUTO DIFFon 01-22-2022 BASO # 0.1 103/ul Normal 0.0-0.1 [facility] Comment on above: Performed By: #### U AMIC #### [facility] [address] [place] [address] Dr. Donis Mancini Basophils/100 WBC (Bld) 0.5 % Normal 0.2-2.0 [facility] Comment on above: Performed By: #### U AMIC #### [facility] [address] [place] [address] Dr. Donis Mancini EO # 0.6 103/ul Normal 0.0-0.7 [facility] Comment on above: Performed By: #### U AMIC #### [facility] [address] [place] [address] Dr. Donis Mancini Eosinophils/100 WBC (Bld) 5.1 % Normal 0.9-7.0 [facility] Comment on above: Performed By: #### U AMIC #### [facility] [address] [place] [address] Dr. Donis Mancini Erythrocyte distribution width (RBC) [Ratio] 12.0 % Normal 11.0-15.0 [facility] Comment on above: Performed By: #### U AMIC #### [facility] [address] [place] [address] Dr. Donis Mancini Hematocrit (Bld) [Volume fraction] 45.8 % Normal 36.0-48.0 [facility] Comment on above: Performed By: #### U AMIC #### [facility] [address] [place] [address] Dr. Donis Mancini Hemoglobin (Bld) [Mass/Vol] 15.3 g/dL Normal 12.0-16.0 [facility] Comment on above: Performed By: #### U AMIC #### [facility] [address] [address] [address] Donis Mancini IG # 0.03 10e3/ul Normal 0.00-0.03 [facility] Comment on above: Performed By: #### U AMIC #### [facility] [address] [address] [address] Donis Mancini IG % 0.3 % Normal 0.0-0.5 [facility] Comment on above: Performed By: #### U AMIC #### [facility] [address] [address] [address] Donis Mancini LYMPH # 1.7 103/ul Normal 1.2-3.8 [facility] Comment on above: Performed By: #### U AMIC #### [facility] [address] [place] [address] Dr. Donis Mancini Lymphocytes/100 WBC (Bld) 15.9 % Critically low 20.5-60.0 [facility] Comment on above: Performed By: #### U AMIC #### [facility] [address] [place] [address] Dr. Donis Mancini MANUAL DIFF REQ NO Normal [facility] Comment on above: Performed By: #### U AMIC #### [facility] [address] [place] [address] Dr. Donis Mancini MCH (RBC) [Entitic mass] 31.5 pg Normal 26.7-34.0 [facility] Comment on above: Performed By: #### U AMIC #### [facility] [address] [place] [address] Dr. Donis Mancini MCHC (RBC) [Mass/Vol] 33.4 g/dL Normal 29.9-35.2 [facility] Comment on above: Performed By: #### U AMIC #### [facility] [address] [place] [address] Dr. Donis Mancini MCV (RBC) [Entitic vol] 94.2 fL Normal 81.0-99.0 [facility] Comment on above: Performed By: #### U AMIC #### [facility] [address] [address] [address] Donis Mancini MONO # 0.6 103/ul Normal 0.3-0.8 [facility] Comment on above: Performed By: #### U AMIC #### [facility] [address] [address] [address] Donis Mancini Monocytes/100 WBC (Bld) 5.8 % Normal 1.7-12.0 [facility] Comment on above: Performed By: #### U AMIC #### [facility] [address] [address] [address] Donis Mancini NEUT # 7.8 103/ul Critically high 1.4-6.5 [facility] Comment on above: Performed By: #### U AMIC #### [facility] [address] [place] [address] Dr. Donis Mancini Neutrophils/100 WBC (Bld) 72.4 % Normal 43.0-75.0 [facility] Comment on above: Performed By: #### U AMIC #### [facility] [address] [address] [address] Donis Mancini Platelet mean volume (Bld) [Entitic vol] 9.9 fL Normal 9.5-13.5 [facility] Comment on above: Performed By: #### U AMIC #### [facility] [address] [place] [address] Dr. Donis Mancini PLT 281 103/ul Normal 150-450 [facility] Comment on above: Performed By: #### U AMIC #### [facility] [address] [place] [address] Dr. Donis Mancini RBC 4.86 106/ul Normal 4.20-5.40 [facility] Comment on above: Performed By: #### U AMIC #### [facility] [address] [place] [address] Dr. Donis Mancini WBC 10.8 103/ul Normal 4.0-11.0 [facility] Comment on above: Performed By: #### U AMIC #### [facility] [address] [address] [address] Donis Mancini CULTURE URINEon 01-22-2022 CULTURE URINE Culture Observations: LIGHT GROWTH OF MIXED GENITAL RAMBO. NO POTENTIAL PATHOGENS SEEN. Normal [facility] Comment on above: Performed By: #### U RCX #### [facility] [address] [address] [address] Donis Mancini GLYCOHEMOGLOBIN A1Con 2021 ADA RECOMMENDATION SEE BELOW Normal [facility] Comment on above: Result Comment: ADA RECOMMENDED LIMIT 4.0 - 6.0 ADA THERAPEUTIC TARGET < 7.0 ACTION SUGGESTED > 7.0 Performed By: #### A 1C ####[facility] [id number] [address]DrGene Mancini Glucose [Mass/Vol] 100 mg/dL Normal [facility] Comment on above: Performed By: #### A 1C ####[facility] [id number] [address]DrGene Mancini HbA1c (Bld) [Mass fraction] 5.1 % Normal 4.5-6.2 [facility] Comment on above: Performed By: #### A 1C ####[facility] [id number] [address]Dr. Donis Mancini SEAN BOX TEST PT SEND OUTo n 01-22-2022 SENT TO REF LAB 01/22/2022 Normal [facility] Comment on above: Performed By: #### N BOX ####[facility] [id number] [address]Dr. Donis Mancini TYPE AND SCREENon 01-22-2022 TYPE AND SCREEN Negative Normal [facility] Comment on above: Performed By: #### T NS #### [facility] [address] [address] [address] Donis Mancini US PREG TVon 01-17-2022 [...] COCO STERN Date: 2022-01-17 09:34 Normal [facility] Provider Letteron 04-06-2021 Provider Letter April 06, 2021 Dear Vimal, We have been trying to reach you with no success. It is important that you return our call regarding your appointment upon receiving this letter. Also, at the time of your call, please provide us with your current information. Thank you for your prompt attention to this matter. Sincerely, [facility] [address] [place], [place] [id number] Normal [facility] Ambulatory Clinical Summaryo n 03-10-2021 Ambulatory Clinical Summary {[id number]}CD:[id number] Normal [facility] Ambulatory Clinical Summaryo n 03-05-2021 Ambulatory Clinical Summary {[id number]}CD:[id number] Normal [facility] Gynecology Phone Visit- Tele healthon [...] only communication with the patient located at [address] [place] [address] [phone], with no one else. 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 CODING DATE: 12/18/2020 FINAL [facility] STATUS: Home (Routine DC) PAYOR: [place] ADMIT DX: REASON FOR VISIT DX: [...] slightly different terminology. Coded By: Mandy Del RioLou Date Saved: 12/18/2020 12:44 pm Normal [facility] Physician Orderon 12-16-2020 Physician Order [id number]:[id number] Normal [facility] Rapid COVID Antigen ([facility])on 12-16-2020 Rapid COV Int NEG Ctl Pass Normal Fis [facility] Comment on above: Performed By: #### 2 [id number] #### [facility] [address] [place] [address] Rapid COV Int POS Ctl Pass Normal [facility] Comment on above: Performed By: #### 2 [id number] #### [facility] [address] [place] [address] SARS-CoV-2 (COVID-19) RNA INESSA+probe Ql (Unsp spec) Detected Abnormal Not Detected [facility] Comment on above: Result [...] or revoked sooner. 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 NO Normal [facility] Comment on above: Performed By: #### 2 [id number] #### [facility] [address] [place] [address] ICU NO Normal [facility] Comment on above: Performed By: #### 2 [id number] #### [facility] [address] [place] [address] ? Unknown Normal [facility] Comment on above: Performed By: #### 2 [id number] #### [facility] [address] [place] [address] Resides in a Congregate Care Setting Unknown Normal [facility] Comment on above: Performed By: #### 2 [id number] #### [facility] [address] [place] [address] Symptomatic as defined by CDC YES Normal [facility] Comment on above: Performed By: #### 2 [id number] #### [facility] [address] [place] [address] Ambulatory Clinical Summaryo 11-25-2020 Ambulatory Clinical Summary {[id number]}CD:[id number] Normal [facility] Vital Signs Date Time Vital Sign Value Performing Clinician Facility 06-19-2025 15:04-0400 Body mass index (BMI) [Ratio] 31.89 kg/m2 Jose Michael DO Work Phone: [facility] 06-19-2025 15:04-0400 Body weight 81.65 kg Jose Michael DO Work Phone: [facility] 06-19-2025 15:04-0400 Diastolic blood pressure 86 mm[Hg] Jose Michael DO Work Phone: [facility] 06-19-2025 15:04-0400 Systolic blood pressure 142 mm[Hg] Jose Michael DO Work Phone: [facility] 06-12-2025 15:22-0400 Body mass index (BMI) [Ratio] 31.96 kg/m2 Rossana BISWAS Work Phone: [facility] 06-12-2025 15:22-0400 Body weight 81.83 kg Rossana BISWAS Work Phone: [facility] 06-12-2025 15:22-0400 Diastolic blood pressure 90 mm[Hg] Rossana BISWAS Work Phone: [facility] 06-12-2025 15:22-0400 Systolic blood pressure 144 mm[Hg] Rossana BISWAS Work Phone: [facility] 05-28-2025 10:48-0400 Body mass index (BMI) [Ratio] 32.06 kg/m2 Jose Michael DO Work Phone: [facility] 05-28-2025 10:48-0400 Body weight 82.1 kg Jose Michael DO Work Phone: [facility] 05-28-2025 10:48-0400 Diastolic blood pressure 80 mm[Hg] Jose Michael DO Work Phone: [facility] 05-28-2025 10:48-0400 Systolic blood pressure 136 mm[Hg] Jose Michael DO Work Phone: [facility] 05-22-2025 15:02-0400 Body mass index (BMI) [Ratio] 31.49 kg/m2 Jose Michael DO Work Phone: [facility] 05-22-2025 15:02-0400 Body weight 80.63 kg Jose Michael DO Work Phone: [facility] 05-22-2025 15:02-0400 Diastolic blood pressure 92 mm[Hg] Jose Michael DO Work Phone: [facility] 05-22-2025 15:02-0400 Systolic blood pressure 138 mm[Hg] Jose Michael DO Work Phone: [facility] 05-14-2025 14:59-0400 Body mass index (BMI) [Ratio] 31.35 kg/m2 Jose Michael DO Work Phone: [facility] 05-14-2025 14:59-0400 Body weight 80.29 kg Jose Michael DO Work Phone: [facility] 05-14-2025 14:59-0400 Diastolic blood pressure 90 mm[Hg] Jose Michael DO Work Phone: [facility] 05-14-2025 14:59-0400 Systolic blood pressure 140 mm[Hg] Jose Michael DO Work Phone: [facility] 05-13-2025 16:11-0400 Body weight 79.83 kg Marjorie Rico RN Work Phone: [facility] 04-30-2025 11:52-0400 Body mass index (BMI) [Ratio] 31 kg/m2 Rossana BISWAS Work Phone: [facility] 04-30-2025 11:52-0400 Body weight 79.38 kg Rossana Rachel PA Work Phone: [facility] 04-30-2025 11:52-0400 Diastolic blood pressure 94 mm[Hg] Rossana Rachel PA Work Phone: [facility] 04-30-2025 11:52-0400 Systolic blood pressure 140 mm[Hg] Rossana [place] PA Work Phone: [facility] 04-11-2025 15:38-0400 Body mass index (BMI) [Ratio] 30.2 kg/m2 Rossana [place] PA Work Phone: [facility] 04-11-2025 15:38-0400 Body weight 77.34 kg Rossana Rachel PA Work Phone: [facility] 04-11-2025 15:38-0400 Diastolic blood pressure 100 mm[Hg] Rossana [place] PA Work Phone: [facility] 04-11-2025 15:38-0400 Systolic blood pressure 142 mm[Hg] Rossana [place] PA Work Phone: [facility] 03-14-2025 11:36-0400 Body mass index (BMI) [Ratio] 29.23 kg/m2 Jose Michael DO Work Phone: [facility] 03-14-2025 11:36-0400 Body weight 74.84 kg Jose Michael DO Work Phone: [facility] 03-14-2025 11:36-0400 Diastolic blood pressure 76 mm[Hg] Jose Michael DO Work Phone: [facility] 03-14-2025 11:36-0400 Systolic blood pressure 112 mm[Hg] Jose Michael DO Work Phone: [facility] 02-20-2025 16:08-0400 Body mass index (BMI) [Ratio] 28.83 kg/m2 Rossana Rachel PA Work Phone: [facility] 02-20-2025 16:08-0400 Body weight 73.82 kg Rossana Rachel PA Work Phone: [facility] 02-20-2025 16:08-0400 Diastolic blood pressure 82 mm[Hg] Rossana [place] PA Work Phone: [facility] 02-20-2025 16:08-0400 Systolic blood pressure 110 mm[Hg] Rossana [place] PA Work Phone: [facility] 01-14-2025 15:42-0400 Body mass index (BMI) [Ratio] 27.3 kg/m2 Jose Michael DO Work Phone: [facility] 01-14-2025 15:42-0400 Body weight 69.91 kg Jose Michael DO Work Phone: [facility] 01-14-2025 15:42-0400 Diastolic blood pressure 70 mm[Hg] Jose Michael DO Work Phone: [facility] 01-14-2025 15:42-0400 Systolic blood pressure 120 mm[Hg] Jose Michael DO Work Phone: [facility] 08-20-2024 10:55-0500 Body mass index (BMI) [Ratio] 25.93 kg/m2 Rossana [place] PA Work Phone: [facility] 08-20-2024 10:55-0500 Body weight 66.41 kg Rossana Rachel PA Work Phone: [facility] 08-20-2024 10:55-0500 Diastolic blood pressure 70 mm[Hg] Rossana [place] PA Work Phone: [facility] 08-20-2024 10:55-0500 Systolic blood pressure 120 mm[Hg] Rossana [place] PA Work Phone: [facility] 08-06-2024 09:38-0500 Body mass index (BMI) [Ratio] 25.47 kg/m2 Jose Michael DO Work Phone: [facility] 08-06-2024 09:38-0500 Body weight 65.23 kg Jose Michael DO Work Phone: [facility] 08-06-2024 09:38-0500 Diastolic blood pressure 70 mm[Hg] Jose Michael DO Work Phone: [facility] 08-06-2024 09:38-0500 Systolic blood pressure 120 mm[Hg] Jose Michael DO Work Phone: [facility] 06-29-2024 09:12-0400 Body mass index (BMI) [Ratio] 24.58 kg/m2 Nom Nurse [facility] 06-29-2024 09:12-0400 Body weight 62.94 kg [facility] Nurse [facility] 06-29-2024 09:12-0400 Diastolic blood pressure 72 mm[Hg] [facility] Nurse [facility] 06-29-2024 09:12-0400 Systolic blood pressure 122 mm[Hg] [facility] Nurse [facility] 12-26-2022 13:45-0400 Body height 160.02 cm Jennifer Betzaida Other [facility] Other 12-26-2022 13:45-0400 Body mass index (BMI) [Ratio] 27.45 kg/m2 Jennifer Dudleymond Other [facility] Other 12-26-2022 13:45-0400 Body temperature 97 [degF] Jennifer Dudleymond Other [facility] Other 12-26-2022 13:45-0400 Body weight 70.31 kg Jennifer Dudleymond Other [facility] Other 12-26-2022 13:45-0400 Diastolic blood pressure 89 mm[Hg] Jennifer Dudleymond Other [facility] Other 12-26-2022 13:45-0400 Respiratory rate 18 /min Jennifer Betzaida Other [facility] Other 12-26-2022 13:45-0400 SaO2% (BldA) [Mass fraction] 100 % Jennifer Huston Other [facility] Other 12-26-2022 13:45-0400 Systolic blood pressure 135 mm[Hg] Jennifer Huston Other [facility] Other Encounters Encounter Date Encounter Type Care Provider Facility Start: 06-19-2025 End: 06-19-2025 flow sheet Jose Rodriguez DO Work Phone: [facility] Comment on above: Third trimester preg alysa ([facility]); 35 weeks gestation of ([facility]); Diet controlled gestational diabetes mellitus (GDM), antepartum ([facility]); induced hypertension, antepartum ([facility]) Start: 06-15-2025 End: 06-15-2025 Clinisync Result Encounter Rossana BISWAS Work Phone: [facility] Unsolicited Start: 06-15-2025 End: 06-15-2025 Clinisync Result Encounter Rossana BISWAS Work Phone: [facility] Unsolicited Start: 06-12-2025 End: 06-12-2025 ambulatory ROSSANA RAMOS Not Available Start: 06-12-2025 End: 06-12-2025 flow sheet Rossana BISWAS Work Phone: [facility] Comment on above: Third trimester preg alysa ([facility]); 34 weeks gestation of ([facility]) Start: 06-12-2025 End: 06-12-2025 Bamboo flowsheet Rossana BISWAS Work Phone: [facility] Start: 06-12-2025 End: 06-12-2025 Bamboo flowsheet Rossana BISWAS Work Phone: [facility] Start: 06-11-2025 End: 06-11-2025 ambulatory JOSE RODRIGUEZ [facility] Start: 06-08-2025 End: 06-08-2025 Clinisync Result Encounter Rossana BISWAS Work Phone: [facility] External [facility] Unsolicited Start: 06-08-2025 End: 06-08-2025 Clinisync Result Encounter Rossana BISWAS Work Phone: [facility] External [facility] Unsolicited Start: 06-05-2025 End: 06-05-2025 Telephone encounter Xenia London RD Work Phone: [facility] Start: 06-04-2025 End: 06-04-2025 Office consultation new/estab patient 60 min Manas Martin MD Work Phone: [facility] Comment on above: Poor growth af fecting management of mother in third trimester, single or unspecified fetus (Primary Dx) Start: 06-04-2025 End: 06-04-2025 Orders Only Marii Yoo RN [facility] Comment on above: Poor growth af [...] abstracting Scanning Provider External [facility] Start: 05-28-2025 End: 05-28-2025 Bamboo flowsheet Jose Michael DO Work Phone: [facility] Start: 05-28-2025 End: 05-28-2025 Bamboo flowsheet Jose Michael DO Work Phone: [facility] Start: 05-28-2025 End: 05-28-2025 Telephone encounter Chante TEJEDA Work Phone: [facility] Start: 05-28-2025 End: 05-28-2025 ambulatory JOSE MICHAEL Not Available Start: 05-28-2025 End: 05-28-2025 flow sheet Jose Michael DO Work Phone: [facility] Comment on above: Third trimester preg alysa ([facility]); 32 weeks gestation of ([facility]); Gestational diabetes mellitus (GDM), antepartum, gestational diabetes method of control unspecified ([facility]); induced hypertension, antepartum ([facility]) Start: 05-25-2025 End: 05-25-2025 Clinisync Result Encounter Rossana BISWAS Work Phone: [facility] Unsolicited Start: 05-25-2025 End: 05-25-2025 Clinisync Result Encounter Rossana BISWAS Work Phone: [facility] External [facility] Unsolicited Start: 05-22-2025 End: 05-22-2025 ambulatory JOSE MICHAEL Not Available Start: 05-22-2025 End: 05-22-2025 flow sheet Jose Michael DO Work Phone: [facility] Comment on above: Third trimester preg alysa ([facility]); 31 weeks gestation of ([facility]) Start: 05-22-2025 End: 05-22-2025 Bamboo flowsheet Jose Michael DO Work Phone: [facility] Start: 05-22-2025 End: 05-22-2025 Bamboo flowsheet Jose Michael DO Work Phone: [facility] Start: 05-21-2025 End: 05-21-2025 Telephone encounter Chante TEJEDA Work Phone: [facility] Start: 05-20-2025 End: 05-20-2025 Clinisync Result [...] Comment on above: Third trimester preg alysa ([facility]); 30 weeks gestation of ([facility]); induced hypertension, antepartum ([facility]) Start: 05-14-2025 End: 05-14-2025 Bamboo flowsheet Jose Michael DO Work Phone: [facility] Start: 05-14-2025 End: 05-14-2025 Bamboo flowsheet Jose Michael DO Work Phone: [facility] Start: 05-13-2025 End: 05-13-2025 ambulatory Marjorie Rico RN Work Phone: [facility] Comment on above: Gestational diabetes mellitus (GDM) in third trimester, gestational diabetes method of control unspecified Start: 05-11-2025 End: 05-11-2025 Clinisync Result Encounter Rossana BISWAS Work Phone: [facility] Unsolicited Start: 05-11-2025 End: 05-11-2025 Clinisync Result Encounter Rossana BISWAS Work Phone: [facility] Unsolicited Start: 05-10-2025 End: 05-10-2025 Chart abstracting Scanning Provider External [facility] Start: 05-06-2025 End: 05-06-2025 Clinisync Result [...] encounter Jose Rodriguez DO Work Phone: [facility] Start: 04-30-2025 End: 04-30-2025 Bamboo flowsheet Rossana BISWAS Work Phone: [facility] Start: 04-30-2025 End: 04-30-2025 Bamboo flowsheet Rossana BISWAS Work Phone: [facility] Start: 04-30-2025 End: 04-30-2025 ambulatory ROSSANA RAMOS Not Available Start: 04-30-2025 End: 04-30-2025 Patient encounter status Rossana BISWAS Work Phone: [facility] Work Phone: Start: 04-30-2025 End: 04-30-2025 flow sheet Rossana BISWAS Work Phone: [facility] Comment on above: BP check; -induced hypertension in third trimester ([facility]); Gestational diabetes mellitus (GDM) in third trimester, gestational diabetes method of control unspecified ([facility]) Start: 04-27-2025 End: 04-27-2025 Clinisync Result Encounter Rossana BISWAS Work Phone: [facility] Unsolicited Start: 04-27-2025 End: 04-27-2025 Clinisync Result Encounter Rossana BISWAS Work Phone: [facility] Unsolicited Start: 04-25-2025 End: 04-25-2025 flow sheet Rossana BISWAS Work Phone: [facility] Comment on above: Second trimester pre gnancy ([facility]); 27 weeks gestation of ([facility]); induced hypertension, antepartum ([facility]) Start: 04-25-2025 End: 04-25-2025 ambulatory ROSSANA RAMOS Not Available Start: 04-25-2025 End: 04-25-2025 Bamboo flowsheet Rossana BISWAS Work Phone: [facility] Start: 04-25-2025 End: 04-25-2025 Bamboo flowsheet Rossana BISWAS Work Phone: [facility] Start: 04-11-2025 End: 04-11-2025 ambulatory ROSSANA RACHEL Not Available Start: 04-11-2025 End: 04-11-2025 flow sheet Rossana BISWAS Work Phone: [facility] Comment on above: Second trimester pre gnancy ([facility]); 25 weeks gestation of ([facility]); Diabetes mellitus screening; Elevated BP without diagnosis of hypertension Start: 04-11-2025 End: 04-11-2025 Bamboo flowsheet Rossana BISWAS Work Phone: [facility] Start: 04-11-2025 End: 04-11-2025 Bamboo flowsheet Rossana BISWAS Work Phone: [facility] Start: 03-25-2025 End: 03-25-2025 Clinisync Result Encounter Jose Rodriguez DO Work [...] Comment on above: Second trimester pre gnancy ([facility]); 21 weeks gestation of ([facility]) Start: 03-08-2025 End: 03-08-2025 Clinisync Result Encounter Jose Michael DO Work Phone: [facility] External Department Unsolicited Start: 03-08-2025 End: 03-08-2025 Clinisync Result Encounter Jose Michael DO Work Phone: [facility] External Department Unsolicited Start: 02-20-2025 End: [...] 02-20-2025 Bamboo flowsheet Rossana BISWAS Work Phone: [facility] Start: 02-20-2025 End: 02-23-2025 Bamboo flowsheet Rossana BISWAS Work Phone: [facility] Start: 02-20-2025 End: 02-23-2025 Clinisync Result Encounter Rossana Rachel BISWAS Work Phone: [facility] External Department Unsolicited [...] End: 08-10-2024 ambulatory PHYSICIAN NO [facility] Work Phone: Start: 08-10-2024 End: 08-10-[address] [facility] Start: 08-06-2024 End: 08-06-2024 Bamboo flowsheet [...] 12-26-2022 End: 12-26-2022 ambulatory Jennifer Huston Other [facility] Other Start: 12-26-2022 End: 12-26-2022 Patient encounter procedure WELLNESS SPECIALIST-C Jennifer Huston Work Phone: [facility] Work [...] Date Procedure Procedure Detail Performing Clinician Start: 06-19-2025 Urnls dip stick/tabl et rgnt non-auto w/o micrscp Jose Michael DO Work Phone: Start: 06-15-2025 US OB BPP W NON-STRESS Rossana BISWAS Work Phone: Start: 06-12-2025 Urnls dip stick/tabl et rgnt non-auto w/o micrscp Jose Michael DO Work Phone: Start: 06-08-2025 US OB [...] 05-18-2025 ALL CBC WITH AUTO DIFF Jose Mihcael DO Work Phone: Start: 05-13-2025 Glucose quantitative [...] Phone: Start: 02-20-2025 IGP,APTIMA HPV,AGE GDLN Rossana [place] PA Work Phone: Start: 02-20-2025 Microscopic observat [...] Start: 12-26-2022 Plain X-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 hand WELLNESS SPECIALIST-C Jennifer Huston Work Phone: Start: 11-02-2022 [...] malign ant [facility]ix [facility] Start: 06-04-2026 End: 06-04-2026 US MFM with or without consult US MFM with or without consult Imaging Routine Poor growth affecting management of mother in third trimester, single or unspecified fetus Gestational diabetes mellitus (GDM) in third trimester, gestational diabetes method of control unspecified Expected: 06/04/2026 (Approximate), Expires: 06/04/2026 [employer] Work Phone: Comment on above: Expected: 06/04/2026 (Approximate), Expires: 06/04/2026 Start: 06-24-2025 End: 06-24-2025 Patient encounter procedure 06/24/2025 2:15 PM EDT Appointment [facility] [address] [address] [facility] [place] Start: 06-19-2025 End: 06-19-2025 Patient encounter procedure 06/19/2025 2:30 PM EDT Routine [facility] PANG [address] [place] [address] Jose Rodriguez, [address] [place] [address] [facility] [place] [facility] Start: 06-18-2025 End: 06-18-2025 Patient encounter procedure 06/18/2025 3:30 PM EDT Appointment [facility] [address] [place] [phone] [facility] Start: 06-12-2025 End: 06-12-2025 Patient encounter procedure 06/12/2025 3:00 PM EDT Routine [facility] [place] [facility]BGY[facility] [address] [place] [place] [address] Rossana Ramos PA [address] [place] [address] [facility] [place] [facility] Start: 06-11-2025 End: 06-11-2025 Patient encounter procedure 06/11/2025 8:00 AM EDT Appointment [facility] [address] [place] [phone] [facility] Start: 06-04-2025 End: 06-04-2025 Patient encounter procedure 06/04/2025 1:00 PM EDT Appointment [facility] [address] [place] [address] Jose Rodriguez DO [address] [place] [address] [facility] Start: 06-04-2025 Subsequent hospital visit by physician 06/04/2025 1:00 PM EDT Hospital Encounter [facility] [address] [place] [address] Jose Rodriguez R, DO [address] [place] [address] [facility] Start: 05-28-2025 End: 05-28-2025 Patient encounter procedure 05/28/2025 10:30 AM EDT Routine [facility] Rafia OBCHICHO [address] [place] [address] Jose Rodriguez, DO [address] [place] [address] [facility] Start: 05-27-2025 Influenza vaccination [facility] Start: 05-22-2025 End: 05-22-2025 Patient encounter procedure 05/22/2025 2:40 PM EDT Routine [facility] [place] OBALEXIN [address] [place] [address] Jose Rodriguez, DO [address] [place], [place] [phone] [facility] [place] [facility] Start: 05-14-2025 End: 05-14-2025 Patient encounter procedure 05/14/2025 2:40 PM EDT Routine [facility] PANG [address] [place] [address] Jose Rodriguez, DO [address] [place] [address] [facility] Start: 05-14-2025 End: 05-14-2026 Alanine aminotransferase [Enzymatic activity/volume] in Serum or Plasma ALT Lab Routine induced hypertension, antepartum ([facility]) Expected: 05/14/2025 (Approximate), Expires: 05/14/2026 [facility] Comment on above: Expected: 05/14/2025 (Approximate), Expires: 05/14/2026 Start: 05-14-2025 End: 05-14-2026 Aspartate aminotransferase [Enzymatic activity/volume] in Serum or Plasma AST Lab Routine induced hypertension, antepartum ([facility]) Expected: 05/14/2025 (Approximate), Expires: 05/14/2026 [facility] Comment on above: Expected: 05/14/2025 (Approximate), Expires: 05/14/2026 Start: 05-14-2025 End: 05-14-2026 CBC W Auto Differential panel - Blood CBC and differential Lab Routine induced hypertension, antepartum ([facility]) Expected: 05/14/2025 (Approximate), Expires: 05/14/2026 [facility] Comment on above: Expected: 05/14/2025 (Approximate), Expires: 05/14/2026 Start: 05-14-2025 End: 05-14-2026 Creatinine [Mass/volume] in Serum or Plasma Creatinine Lab Routine induced hypertension, antepartum ([facility]) Expected: 05/14/2025 (Approximate), Expires: 05/14/2026 [facility] Work Phone: Comment on above: Expected: 05/14/2025 (Approximate), Expires: 05/14/2026 Start: 05-14-2025 End: 05-14-2026 Lactate dehydrogenase [Enzymatic activity/volume] in Serum or Plasma by Lactate to pyruvate reaction Lactate dehydrogenase Lab Routine induced hypertension, antepartum ([facility]) Expected: 05/14/2025, Expires: 05/14/2026 [facility] Comment on above: Expected: 05/14/2025 , Expires: 05/14/2026 Start: 05-14-2025 End: 05-14-2026 Protein, urine, 24 hour Protein, urine, 24 hour Lab Routine induced hypertension, antepartum ([facility]) Expected: 05/14/2025 (Approximate), Expires: 05/14/2026 [facility] Comment on above: Expected: 05/14/2025 (Approximate), Expires: 05/14/2026 Start: 05-14-2025 End: 05-14-2026 Pt and ptt Pt and ptt Lab Routine induced hypertension, antepartum ([facility]) Expected: 05/14/2025, Expires: 05/14/2026 [facility] Comment on above: Expected: 05/14/2025 , Expires: 05/14/2026 Start: 05-14-2025 End: 05-14-2026 Urate [Mass/volume] in Serum or Plasma Uric acid Lab Routine induced hypertension, antepartum ([facility]) Expected: 05/14/2025 (Approximate), Expires: 05/14/2026 [facility] Comment on above: Expected: 05/14/2025 (Approximate), Expires: 05/14/2026 Start: 05-14-2025 End: 05-14-2026 Urea nitrogen [Mass/volume] in Serum or Plasma BUN Lab Routine induced hypertension, antepartum ([facility]) Expected: 05/14/2025, Expires: 05/14/2026 [facility] Comment on above: Expected: 05/14/2025 , Expires: 05/14/2026 Start: 05-13-2025 End: 05-13-2025 ambulatory 05/13/2025 1:30 PM EDT Support Visit Maternal- Medicine at [facility] [address] [place] [phone] Marjorie Rico RN [address], [address] [place] [id number] [facility]- [facility] at [facility] Start: 04-30-2025 End: 10-31-2025 US biophysical profile w non stress test US biophysical profile w non stress test Imaging Routine -induced hypertension in third trimester ([facility]) Gestational diabetes mellitus (GDM) in third trimester, gestational diabetes method of control unspecified ([facility]) Expected: 04/30/2025 (Approximate), Expires: 10/31/2025 [facility] Work Phone: Comment on above: Expected: 04/30/2025 (Approximate), Expires: 10/31/2025 Start: 04-30-2025 End: 08-30-2025 US for US OB follow up transabdominal approach Imaging Routine -induced hypertension in third trimester ([facility]) Gestational diabetes mellitus (GDM) in third trimester, gestational diabetes method of control unspecified ([facility]) Expected: 04/30/2025, Expires: 08/30/2025 [facility] Comment on above: Expected: 04/30/2025 , Expires: 08/30/2025 Start: 04-30-2025 End: 04-30-2025 Patient encounter procedure 04/30/2025 10:50 AM EDT Routine ARJUN PANG [address] [place] [place] [address] Rossana Ramos PA [address] [place] [address] [facility] [place] [facility] Start: 04-25-2025 End: 04-25-2025 Patient encounter procedure [facility] Comment on above: Arrived Start: 04-25-2025 End: 04-25-2026 Alanine aminotransferase [Enzymatic activity/volume] in Serum or Plasma ALT Lab Routine induced hypertension, antepartum ([facility]) Expected: 04/25/2025 (Approximate), Expires: 04/25/2026 [facility] Comment on above: Expected: 04/25/2025 (Approximate), [...] antepartum ([facility]-HCC) Expected: 04/25/2025 (Approximate), Expires: 04/25/2026 [facility] Comment on above: Expected: 04/25/2025 (Approximate), Expires: 04/25/2026 Start: 04-25-2025 End: 04-25-2026 Creatinine [Mass/volume] in Serum or Plasma Creatinine Lab Routine induced hypertension, antepartum ([facility]) Expected: 04/25/2025 (Approximate), Expires: 04/25/2026 [facility] Work Phone: Comment on above: Expected: 04/25/2025 (Approximate), Expires: 04/25/2026 Start: 04-25-2025 End: 04-25-2026 Lactate dehydrogenase [Enzymatic activity/volume] in Serum or Plasma by Lactate to pyruvate reaction Lactate dehydrogenase Lab Routine induced hypertension, antepartum ([facility]) Expected: 04/25/2025, Expires: 04/25/2026 [facility] Comment on above: Expected: 04/25/2025 , Expires: 04/25/2026 Start: 04-25-2025 End: 04-25-2026 Protein, urine, 24 hour Protein, urine, 24 hour Lab Routine induced hypertension, antepartum ([facility]) Expected: 04/25/2025 (Approximate), Expires: 04/25/2026 [facility] Comment on above: Expected: 04/25/2025 (Approximate), Expires: 04/25/2026 Start: 04-25-2025 End: 04-25-2026 Pt and ptt Pt and ptt Lab Routine induced hypertension, antepartum ([facility]) Expected: 04/25/2025, Expires: 04/25/2026 [facility] Comment on above: Expected: 04/25/2025 , Expires: 04/25/2026 Start: 04-25-2025 End: 04-25-2026 Urate [Mass/volume] in Serum or Plasma Uric acid Lab Routine induced hypertension, antepartum ([facility]) Expected: 04/25/2025 (Approximate), Expires: 04/25/2026 [facility] Comment on above: Expected: 04/25/2025 (Approximate), Expires: 04/25/2026 Start: 04-25-2025 End: 04-25-2026 Urea nitrogen [Mass/volume] in Serum or Plasma BUN Lab Routine induced hypertension, antepartum ([facility]) Expected: 04/25/2025, Expires: 04/25/2026 [facility] Comment on above: Expected: 04/25/2025 , Expires: 04/25/2026 Start: 04-11-2025 End: 04-11-2025 Patient encounter procedure 04/11/2025 3:30 PM EDT Routine [facility] [address] [place] [place] [phone] Rossana Ramos PA [address] [place], [place] [phone] [facility] Start: 04-11-2025 End: 04-11-2026 CBC panel - Blood by Automated count CBC Lab Routine Diabetes mellitus screening Expected: 04/11/2025 (Approximate), Expires: 04/11/2026 [facility] Work Phone: Comment on above: Expected: 04/11/2025 (Approximate), Expires: 04/11/2026 Start: 04-11-2025 End: 04-11-2026 Measurement of glucose 1 hour after glucose challenge for glucose tolerance test Glucose tolerance, 1 hour Lab Routine Diabetes mellitus screening Expected: 04/11/2025 (Approximate), Expires: 04/11/2026 [facility] Comment on above: Expected: 04/11/2025 (Approximate), Expires: 04/11/2026 Start: 03-14-2025 End: 03-14-2025 Patient encounter procedure 03/14/2025 10:50 AM EDT Routine [facility] [address] [facility] [address] [place] [phone] Jose Rodriguez DO [address] [place], [place] [id number] [facility] Start: 02-20-2025 End: 02-20-2025 [...] Initial [facility] [address] [place] [address] [facility] Start: 12-14-2024 End: 12-14-2024 Professional / ancillary services management 12/14/2024 8:30 AM EDT Ancillary Procedure [facility] [address] [place] [phone] [facility] Start: 08-20-2024 End: 08-20-2024 Patient encounter procedure 08/20/2024 10:20 AM EST Office Visit [facility] [address] [place] [address] Rossana Ramos PA [address] [place] [address] [facility] Start: 08-06-2024 End: 08-06-2024 Patient encounter procedure 08/06/2024 9:10 AM EST Routine [facility] [address] [place] [address] Jose Rodriguez DO [address] [place], [place] [id number] [facility] Start: 06-29-2024 End: 06-29-2025 ABO/Rh ABO/Rh Lab Routine Missed menses , unspecified gestational age Expected: 06/29/2024 (Approximate), Expires: 06/29/2025 [facility] Comment on above: Expected: 06/29/2024 (Approximate), Expires: 06/29/2025 Start: 06-29-2024 End: 06-29-2025 Blood type and Indirect antibody screen panel - Blood Type and screen Lab Routine Missed menses , unspecified gestational age Expected: 06/29/2024 (Approximate), Expires: 06/29/2025 [facility] Work Phone: Comment on above: Expected: 06/29/2024 (Approximate), Expires: 06/29/2025 Start: 06-29-2024 End: 06-29-2025 Drugs of abuse panel - Urine by Screen method Rapid drug screen, urine Lab Routine , unspecified gestational age Encounter for supervision of normal first in first trimester Expected: 06/29/2024 (Approximate), Expires: 06/29/2025 [facility] Comment on above: Expected: 06/29/2024 (Approximate), Expires: 06/29/2025 Start: 06-29-2024 End: 06-29-2025 US Pelvis transvaginal US OB transvaginal Imaging Routine Missed menses Expected: 06/29/2024 (Approximate), Expires: 06/29/2025 [facility] Comment on above: Expected: 06/29/2024 (Approximate), Expires: 06/29/2025 Start: 05-27-2024 Influenza vaccination Influenza Vacc ine (#1) [facility] Start: 05-01-2024 DTaP,Tdap and Td Vac cines (7 - Td or Tdap) DTaP,Tdap and Td Vaccines (7 - Td or Tdap) [facility] Start: 2020 DTaP,Tdap and Td Vac cines (1 - Tdap) DTaP,Tdap and Td Vaccines (1 - Tdap) [facility] Start: 2019 Adult BMI Screening Adult BMI Screen ing [facility] Start: 2013 Depression Screening Depression Scre ening [facility] Start: 2013 Tobacco Screening Tobacco Screening [facility] Start: 2001 Screening for Chlamy jd trachomatis Chlamydia Screening [facility] Bacteria identified in Urine by Culture Urine culture Microbiology Routine Missed menses Ordered: 06/29/2024 [facility] Comment on above: Ordered: 06/29/2024 Bacteria identified in Urine by Culture Urine culture Microbiology Routine Urinary frequency Ordered: 02/20/2025 [facility] Comment on above: Ordered: 02/20/2025 CBC W Auto Different ial panel - Blood CBC and differential Lab Routine Missed menses , unspecified gestational age Ordered: 06/29/2024 [facility] Comment on above: Ordered: 06/29/2024 CHLAMYDIA TRACHOMATI S (GENITO/STI) CHLAMYDIA TRACHOMATIS (GENITO/STI) Lab Routine STD exposure Ordered: 02/20/2025 [facility] Comment on above: Ordered: 02/20/2025 Cytology Cervical or vaginal smear or scraping study Pap Smear Pathology and Cytology Routine Well woman exam with routine gynecological exam Ordered: 02/20/2025 [facility] Comment on above: Ordered: 02/20/2025 Hemoglobin A1c/Hemoglobin.total in Blood Hemoglobin A1c Lab Routine Missed menses , unspecified gestational age Ordered: 06/29/2024 [facility] Comment on above: Ordered: 06/29/2024 Hepatitis B virus beltran rface Ag [Presence] in Serum or Plasma by Immunoassay Hepatitis B surface antigen Lab Routine Missed menses , unspecified gestational age Ordered: 06/29/2024 [facility] Comment on above: Ordered: 06/29/2024 Hepatitis C virus Ab [Presence] in Serum or Plasma by Immunoassay Hepatitis C antibody Lab Routine Missed menses , unspecified gestational age Ordered: 06/29/2024 [facility] Comment on above: Ordered: 06/29/2024 HIV-1/HIV-2 antigen/antibody combination immunoassay HIV-1 and HIV-2 antibodies Lab Routine Missed menses , unspecified gestational age Ordered: 06/29/2024 [facility] Comment on above: Ordered: 06/29/2024 Neisseria [...] Payers Date Payer Category Payer Medicaid HMO [id number] 2024 Blue Cross Blue [facility] - O [id number] 2023 Medicaid [facility] MEDICAID [place] MEDICA[place] [id number] 2023-Present [address] [place] [id number] 2023 Medicaid (Managed Care) [facility] MEDICAID [id number] 2021 Blue Cross Blue Shield [id number] 2021 Unknown BCBS BCBS [id number] 2021-Present [phone] [address] [place] [address] [id number]. [id number] 2001 Unknown [id number] 2.16.840.1.518197.3.579.2. 593 2001 Unknown [id number] 2.16840.1.842255.3.579.2. 593 2001 Unknown [id number] 2.16840.1.546298.3.579.2. 593 2001 Unknown [id number] 2.16.840.1.522486.3.579.2. 593 2001 Unknown [id number] 2.16.840.1.033796.3.579.2. 593 2001 Unknown [id number] 2.16.840.1.324949.3.579.2. 593 2001 Unknown [id number] 2.16840.1.585972.3.579.2. 593 2001 Unknown [id number] 2.16.840.1.491663.3.579.2. 593 2001 Unknown [id number] 2.16.840.1.017079.3.579.2. 593 2001 Unknown [id number] 2.16840.1.469092.3.579.2. 593 2001 Unknown [id number] 2.16840.1.397441.3.579.2. 593 2001 Unknown [id number] 2.16.840.1.868816.3.579.2. 593 2001 Unknown [id number] 2.16.840.1.264904.3.579.2. 593 2001 Unknown [id number] 2.16.840.1.805624.3.579.2. 593 2001 Unknown [id number] 2.16.840.1.416675.3.579.2. 593 2001 Unknown [id number] 2.16.840.1.568846.3.579.2. 593 2001 Unknown [id number] 2.16.840.1.939167.3.579.2. 593 2001 Unknown [id number] 2.16.840.1.529248.3.579.2. 593 2001 Unknown [id number] 2.16840.1.519887.3.579.2. 593 2001 Unknown [id number] 2.16840.1.971950.3.579.2. 593 2001 Unknown [id number] 2.16.840.1.718671.3.579.2. 593 2001 Unknown [id number] 2.16.840.1.601897.3.579.2. 1286 2001 Unknown [id number] 2.16840.1.426119.3.579.2. 128 2001 Unknown [id number] 2.16.840.1.267378.3.579.2. 1286 2001 Unknown [id number] 2.16.840.1.856737.3.579.2. 128 2001 Unknown [id number] 2.16.840.1.374672.3.579.2. 1259 2001 Unknown [id number] 2.16.840.1.327081.3.579.2. 1259 2001 Unknown [id number] 2.16.840.1.267829.3.579.2. 1258 2001 Unknown [id number] 2.16.840.1.830643.3.579.2. 1258 2001 Unknown [id number] 2.16.840.1.009675.3.579.2. 1258 2001 Unknown [id number] 2.16.840.1.102597.3.579.2. 1258 2001 Unknown [id number] 2.16.840.1.547684.3.579.2. 1258 2001 Unknown [id number] 2.16.840.1.069314.3.579.2. 1258 2001 Unknown [id number] 2.16.840.1.976549.3.579.2. 1258 2001 Unknown [id number] 2.16.840.1.187370.3.579.2. 1258 2001 Unknown [id number] 2.16.840.1.536958.3.579.2. 1258 2001 Unknown [id number] 2.16.840.1.409669.3.579.2. 1258 2001 Unknown [id number] 2.16.840.1.684106.3.579.2. 1258 2001 Unknown [id number] 2.16840.1.664423.3.579.2. 1258 2001 Unknown [id number] 2.16.840.1.453656.3.579.2. 9 1959 Self-pay 1959 Unknown [id number] 1959 Unknown [id number] Unknown [id number] 2.16.840.1.962677.3.579.2. 593 Unknown [id number] 2.16840.1.321476.3.579.2. 531 Social History Date Type Detail Facility Start: 10-13-2023 End: 06-29-2024 Sex Assigned At [facility] Start: 2000 Sex Assigned At Female F [facility] Start: 10-13-2023 End: 05-10-2025 Tobacco smoking status NHIS Never smoked tobacco [facility] Start: 06-29-2024 End: 06-19-2025 Alcoholic beverage intake Current drinker of alcohol (finding) [facility] Start: 10-13-2023 End: 06-29-2024 History of Social function [facility] Start: 05-24-2024 [facility] Start: 2001 Sex assigned at Not on file N [facility] Tobacco smoking stat us NHIS Unknown if ever smoked [facility] Work Phone: Start: 04-29-2015 End: 08-11-2024 Sex Female (finding) [facility] Start: 05-10-2025 End: 05-31-2025 Alcoholic beverage intake Ex-drinker (finding) [facility] Medical Equipment Procedure Code Equipment Code Equipment Origin al Text Equipment Identifier Dates 1 strip by In Vi tro route Daily Use in the morning prior to breakfast, 1 hour after each meal for a total of 4times daily. [id number] Start: 05-08-2025 End: 06-07-2025 1 each by In Vit ro route Daily Use to check FSBS four times daily [id number] Start: 05-08-2025 End: 06-07-2025 Clinical Notes 12-26-2022 to 06-19-2025 Meghana Felder LPN - 06/19/2025 2:40 PM TRUE Navarro - 06/12/2025 3:00 PM EDTTelephone Encounter - Xenia London RD - 06/05/2025 11:08 AM Geri Martin MD - 06/04/2025 2:00 PM EDT Note Date & Type Note Facility 06-19-2025 History of Presen t illness Narrative Reason for Appointment: Patient ID: Vimal Funes is a 25 y.o. female who presents for Routine Visit Patient presents today for Return OB appointment. MEDICATIONS Current Outpatient Medications Medication Instructions Alcohol Swabs (Alcohol Prep Pad) 70 % pads 1 Pad, Topical, Daily, Use four times daily to check FSBS. Blood Glucose Monitoring Suppl ([employer] Glucometer) w/Device kit 1 kit, Does not [...] Problems Diagnosis Date Noted induced hypertension, antepartum ([facility]) 05/28/2025 Gestational diabetes mellitus (GDM), antepartum ([facility]) 05/28/2025 Resolved Ambulatory Problems Diagnosis Date Noted No Resolved Ambulatory Problems Past Medical History: Diagnosis Date Anemia Gestational diabetes ([facility]) History of blood transfusion Lead poisoning Miscarriage ([facility]) Nonsmoker Post depression HISTORY PAST MEDICAL HISTORY SOCIAL HISTORY Past Medical History: Diagnosis Date Anemia Gestational diabetes ([facility]) History of blood transfusion Lead poisoning Miscarriage ([facility]) Nonsmoker Post depression /anxiety Social History [...] nursing note reviewed. Exam conducted with a penology teacher present. Vitals: Estimated body mass index is 31.89 kg/m as calculated from the following: Height as of 01/06/23: 5' 3 . Weight as of this encounter: 180 lb. BP: 142/86 Patient's last menstrual period was 10/15/2024 (exact date). ASSESSMENT & PLAN ICD-10-CM 1. Third trimester ([facility]) Z34.93 POCT urinalysis dipstick manually resulted 2. 35 weeks gestation of ([facility]) Z3A.35 3. Diet controlled gestational diabetes mellitus (GDM), antepartum ([facility]) O24.410 4. induced hypertension, antepartum ([facility]) O13.9 Return OB: Patient presents today [...] Jose Rodriguez DO documented in this encounter [facility] 06-12-2025 History of Presen t illness Narrative Reason for Appointment: Patient ID: Vimal Funes is a 25 y.o. female who presents for Routine Visit Patient presents today for Return OB appointment. MEDICATIONS Current Outpatient Medications Medication Instructions Alcohol Swabs (Alcohol Prep Pad) 70 % pads 1 Pad, Topical, Daily, Use four times daily to check FSBS. Blood Glucose Monitoring Suppl ([employer] Glucometer) w/Device kit 1 kit, Does not [...] Problems Diagnosis Date Noted induced hypertension, antepartum ([facility]) 05/28/2025 Gestational diabetes mellitus (GDM), antepartum ([facility]) 05/28/2025 Resolved Ambulatory Problems Diagnosis Date Noted No Resolved Ambulatory Problems Past Medical History: Diagnosis Date Anemia Gestational diabetes ([facility]) History of blood transfusion Lead poisoning Miscarriage ([facility]) Nonsmoker Post depression HISTORY PAST MEDICAL HISTORY SOCIAL HISTORY Past Medical History: Diagnosis Date Anemia Gestational diabetes ([facility]) History of blood transfusion Lead poisoning Miscarriage ([facility]) Nonsmoker Post depression /anxiety Social History [...] ASSESSMENT & PLAN ICD-10-CM 1. Third trimester ([facility]) Z34.93 POCT urinalysis dipstick manually resulted 2. 34 weeks gestation of ([facility]) Z3A.34 POCT urinalysis dipstick manually resulted [...] of: TRUE Argueta documented in this encounter [facility] 06-05-2025 Miscellaneous Notes Received blood sugars [...] again next week. documented in this encounter [employer] 06-05-2025 Telephone encounter Note Received blood sugars [...] send in more numbers again next week. [employer] Work Phone: 06-04-2025 History of Presen t [...] and the other consultants, we search on [employer] and all the available care everywhere epic I did review all the imaging studies of the patient available on EMR, ordered by the primary care physician and the other center consultant HABITS: Patient activity no restrictions, diet [...] RECOMMENDATION: 1. Continue serial Doppler studies at [facility] office weekly 2. Continue testing form of [...] patient is in complete care of her shoulder joiner. Patient does have multiple ultrasound scheduled with us Thank you for allowing me to participate in Vimal Funes . If there any questions please do not hesitate to contact us. Sincerely, MANAS MARTIN MD Video Visit via Real-time Synchronous Audiovisual Provider Location: [facility]- MEDICINE AT [address] [address] Patient Location: Other [facility] office Patient Location Machine Farmworker: None Video Visit Consent Statement: I discussed [...] that there are some limitations compared to [id number] evaluations. We elected to proceed. [facility] Miscellaneous Notes Called regarding blood sugar logs from 05/20/25-05/26/25 but received voicemail. Vimal had 4 elevated fasting blood sugars and 2 elevated blood sugars after breakfast. Most recent fasting blood sugars have improved and she had three in target. We did talk last week about changing her evening snack. Will send a MyChart message. documented in this encounter [facility] 05-28-2025 Telephone encounter Note Called regarding blood sugar logs from 05/20/25-05/26/25 but received voicemail. Vimal had 4 elevated fasting blood sugars and 2 elevated blood sugars after breakfast. Most recent fasting blood sugars have improved and she had three in target. We did talk last week about changing her evening snack. Will send a MyChart message. [facility] Work Phone: 05-28-2025 History of Presen t [...] Problems Diagnosis Date Noted induced hypertension, antepartum ([facility]) 05/28/2025 Gestational diabetes mellitus (GDM), antepartum ([facility]) 05/28/2025 Resolved Ambulatory Problems Diagnosis Date Noted No Resolved Ambulatory Problems Past Medical History: Diagnosis Date Anemia Gestational diabetes ([facility]) History of blood transfusion Lead poisoning Miscarriage ([facility]) Nonsmoker Post depression HISTORY PAST MEDICAL HISTORY SOCIAL HISTORY Past Medical History: Diagnosis Date Anemia Gestational diabetes ([facility]) History of blood transfusion Lead poisoning Miscarriage ([facility]) Nonsmoker Post depression /anxiety Social [...] nursing note reviewed. Exam conducted with a penology teacher present. Vitals: Estimated body mass index is 32.06 kg/m as calculated from the following: Height as of 23: 5' 3 . Weight as of this encounter: 181 lb. BP: 136/80 Patient's last menstrual period was 10/15/2024 (exact date). ASSESSMENT & PLAN ICD-10-CM 1. Third trimester ([facility]) Z34.93 POCT urinalysis dipstick manually resulted 2. 32 weeks gestation of ([facility]) Z3A.32 3. Gestational diabetes mellitus (GDM), antepartum, gestational diabetes method of control unspecified ([facility]) O24.419 4. induced hypertension, antepartum ([facility]) O13.9 Return OB: Patient presents today [...] Jose Rodriguez DO documented in this encounter [facility] 05-22-2025 History of Presen t illness [...] History of blood transfusion Lead poisoning Miscarriage ([facility]) Nonsmoker Post depression HISTORY PAST [...] nursing note reviewed. Exam conducted with a penology teacher present. Vitals: Estimated body mass index is 31.49 kg/m as calculated from the following: Height as of 01/06/23: 5' 3 . Weight as of this encounter: 177 lb 12 oz. BP: (!) 138/92 Patient's last menstrual period was 10/15/2024 (exact date). ASSESSMENT & PLAN ICD-10-CM 1. Third trimester ([facility]) Z34.93 POCT urinalysis dipstick manually resulted 2. 31 weeks gestation of ([facility]) Z3A.31 Return OB: Patient presents today [...] urine protein. Pt calling in sugars to [facility]. Orders Placed This Encounter Procedures POCT urinalysis dipstick manually resulted Follow Up: Patient is to return to office in 2 week for routine OB appointment. Documented by Meghana Felder LPN on behalf of: Jose Rodriguez DO documented in this encounter [facility] 05-21-2025 Miscellaneous Notes Called regarding blood [...] sugars next week. documented in this encounter [facility] 05-21-2025 Telephone encounter Note Called regarding blood [...] will send in blood sugars next week. [facility] Work Phone: 05-14-2025 History of Presen t [...] nursing note reviewed. Exam conducted with a penology teacher present. Vitals: Estimated body mass index is 31.35 kg/m as calculated from the following: Height as of 01/06/23: 5' 3 . Weight as of this encounter: 177 lb. BP: 140/90 Patient's last menstrual period was 10/15/2024 (exact date). ASSESSMENT & PLAN ICD-10-CM 1. Third trimester ([facility]) Z34.93 POCT urinalysis dipstick manually resulted 2. 30 weeks gestation of ([facility]) Z3A.30 POCT urinalysis dipstick manually resulted 3. induced hypertension, antepartum ([facility]) O13.9 Creatinine Protein, urine, 24 hour [...] Jose Rodriguez DO documented in this encounter [facility] 05-13-2025 Group counseling note Patient: Vimal [...] Face to face time was 110 minutes. [facility] Work [facility]: 05-13-2025 Miscellaneous Notes Patient: Vimal [...] was 110 minutes. documented in this encounter [facility] 05-07-2025 Telephone encounter Note Called pt to let her know that she did not pass her 3 hour glucose test and that I would be sending in supplies and referring her to diabetic education. [facility] 05-07-2025 Miscellaneous Notes Called pt to let her know that she did not pass her 3 hour glucose test and that I would be sending in supplies and referring her to diabetic education. documented in this encounter [facility] 04-30-2025 History of Presen t illness [...] History of blood transfusion Lead poisoning Miscarriage ([facility]) Nonsmoker Post depression HISTORY PAST MEDICAL HISTORY SOCIAL HISTORY Past Medical History: Diagnosis Date Anemia Gestational diabetes ([facility]) History of blood transfusion Lead poisoning Miscarriage ([facility]) Nonsmoker Post depression /anxiety Social [...] resulted 2. -induced hypertension in third trimester ([facility]) O13.3 US biophysical profile w non stress test US OB follow up transabdominal approach labetalol (Normodyne) 300 MG tablet 3. Gestational diabetes mellitus (GDM) in third trimester, gestational diabetes method of control unspecified ([facility]) O24.419 US biophysical profile w [...] of: TRUE Argueta documented in this encounter [facility] 04-25-2025 History of Presen t illness [...] ASSESSMENT & PLAN ICD-10-CM 1. Second trimester ([facility]) Z34.92 2. 27 weeks gestation of ([facility]) Z3A.27 Patient presents for BP check. BP elevated today despite taking 100mg bid labetolol daily. We will increase to 200mg bid daily. Patient given labs and instructed to follow up with OB should she develop headache or vision changes Pt will follow up with DR Rodriguez next week Documented by TRUE Argueta on behalf of: TRUE Argueta documented in this encounter [facility] 04-11-2025 History of Presen t illness [...] Medical History: Diagnosis Date Anemia Gestational diabetes ([facility]) History of blood transfusion Lead poisoning Miscarriage ([facility]) Nonsmoker Post depression HISTORY PAST MEDICAL HISTORY SOCIAL HISTORY Past Medical History: Diagnosis Date Anemia Gestational diabetes ([facility]) History of blood transfusion Lead poisoning Miscarriage ([facility]) Nonsmoker Post depression /anxiety Social [...] & PLAN ICD-10-CM 1. Second trimester ([facility]) Z34.92 POCT urinalysis dipstick manually resulted 2. 25 weeks gestation of ([facility]) Z3A.25 3. Diabetes mellitus screening Z13.1 [...] of: TRUE Argueta documented in this encounter [facility] 03-14-2025 History of Presen t illness [...] History of blood transfusion Lead poisoning Miscarriage ([facility]) Nonsmoker Post depression HISTORY PAST MEDICAL HISTORY SOCIAL HISTORY Past Medical History: Diagnosis Date Anemia Gestational diabetes ([facility]) History of blood transfusion Lead poisoning Miscarriage ([facility]) Nonsmoker Post depression /anxiety Social [...] nursing note reviewed. Exam conducted with a penology teacher present. Vitals: Estimated body mass index is 29.23 kg/m as calculated from the following: Height as of 01/06/23: 5' 3 . Weight as of this encounter: 165 lb. BP: 112/76 Patient's last menstrual period was 10/15/2024 (exact date). ASSESSMENT & PLAN ICD-10-CM 1. Second trimester ([facility]) Z34.92 POCT urinalysis dipstick manually resulted 2. 21 weeks gestation of ([facility]) Z3A.21 Patient presents today for a routine obstetrics appointment. Patient is currently 21w3d with a Estimated Date of Delivery: 07/22/25. Patient has no complaints at this time and will return to clinic in 4 weeks. Documented by Diamond Borja LPN on behalf of: Jose Rodriguez DO documented in this encounter [facility] 02-20-2025 History of Presen t illness [...] nursing note reviewed. Exam conducted with a penology teacher present. Vitals: Estimated body mass index is [...] of: TRUE Argueta documented in this encounter [facility] 01-14-2025 History of Presen t illness [...] nursing note reviewed. Exam conducted with a penology teacher present. Vitals: Estimated body mass index is [...] or undercooked meat, and stay away from [facility]. Patient has been consulted regarding any [...] Jose Rodriguez DO documented in this encounter [facility] 08-20-2024 History of Presen t illness [...] having a D&C Hysteroscopy performed at [facility] with Dr. Rodriguez. Pathology results was reviewed with the patient in great detail and all restrictions have been lifted. Follow Up: Patient is to return to the office for annual exam unless needed otherwise. Documented by TRUE Argueta on behalf of: TRUE Argueta documented in this encounter [facility] 08-06-2024 History of Presen t illness [...] nursing note reviewed. Exam conducted with a penology teacher present. Vitals: Estimated body mass index is [...] vaginal bleeding. Patient to discuss date with Relations Coordinator prior to leaving. Patient is able to obtain work note for the week and if longer is needed she will reach out to office. Documented by Diamond Borja LPN on behalf of: Jose Rodriguez DO documented in this encounter [facility] 06-29-2024 History of Presen t illness [...] blood transfusion Lead poisoning Nonsmoker Post depression ([facility]) Family History Problem Relation Name [...] or undercooked meat, and stay away from [facility]. Patient has also been advised to [...] by: Whitney Peacock documented in this encounter [facility] 12-26-2022 Evaluation note Encounter Date Diagnosis [...] appointment to be seen soon as possible Tripping Other Evaluation noteNo assessment information available [facility] Work Phone: Evaluation note* Diagnosis Missed menses [...] control unspecified [facility] this encounter [facility] Diagnosis Third trimester ([facility]) [...] note* Diagnosis Third trimester ([facility]) state, incidental 35 weeks gestation of ([facility]) Diet controlled gestational diabetes mellitus (GDM), antepartum ([facility]) induced hypertension, antepartum ([facility]) Transient hypertension of , antepartum documented in this encounter [facility]ructionsNot on filedocumented in this encounterProMedica Health SystemInstructionsNot on filedocumented in this encounterProMedica Health SystemInstructionsNot on filedocumented in this encounterProMedica Health SystemInstructionsNot on filedocumented in this encounterRockingham [facility] Summary Purpose Family History No Family History Records FoundNo Family History Records FoundNo Family History Records FoundNo Family History Records FoundNo Family History Records FoundNo Family History Records Found Advance Directives Advance Directive Response Recorded Date/ Time Advance Directives No December 27 6:21am Additional Source Comments INFORMATION SOURCE (unrecogn ized section and content) DATE CREATED AUTHOR 09/24/2021 [facility] DATE CREATED AUTHOR AUTHOR'S ORGANIZ ATION 12/07/2022 [facility] DATE CREATED AUTHOR AUTHOR'S ORGANIZ ATION 08/15/2024 [facility] DATE CREATED AUTHOR AUTHOR'S ORGANIZ ATION 06/06/2025 [facility] DATE CREATED AUTHOR AUTHOR'S ORGANIZ ATION 06/12/2025 [facility] DATE CREATED AUTHOR AUTHOR'S ORGANIZ ATION 06/14/2025 [facility] Special[facility] EPIC REASON FOR VISIT [...] of control unspecified Jose Rodriguez DO [address] [place] [address] Phone: tel: fax: Maternal- Medicine at [facility] [address] [place] [address] Phone: tel: fax: Referral ID Status Reason Start Date Expiration Date Visits Requested Visits Authorized [id number] Pending Review Specialty Services Required 05/09/2025 05/09/2026 1 1 Care Teams (unrecognized sec tion and content) Team Status: Inactive Member Role Status Dates Jennifer Huston NP-C Attending Provider Active Special Event Assistant Relationship Specialty Start Date End Date Vaishali Zapata MD [address] [place] [address] PCP - General Family Medicine 02/04/23 Special Event Assistant Relationship Specialty Start Date End Date Vaishali Zapata MD [address] [place] [address] PCP - General Family Medicine 02/04/23 Team Status: Active Member Role Status Dates PHYSICIAN NO FAMILY Primary Care Provider Active Team Status: Inactive Member Role Status Dates PHYSICIAN NO FAMILY Primary Care Provider Active Start: August 10, 2024 End: August 10, 2024 Jose Rodriguez DO Attending Provider Active Start : August 10, 2024 End: August 10, 2024 Special Event Assistant Relationship Specialty Start Date End Date Unallocated, Noms Provider, [address] [place] [address] PCP - General Family Medicine 08/03/24 Special Event Assistant Relationship Specialty Start Date End Date Unallocated, Arjun Vo MD [facility] [address] [facility] [place] [address] PCP - General Family Medicine 08/03/24 Special Event Assistant Relationship Specialty Start Date End Date Unallocated, Arjun Vo MD [facility] [address] [facility] [place] [address] PCP - General Family Medicine 08/03/24 Special Event Assistant Relationship Specialty Start Date End Date Unallocated, Arjun Vo MD [facility] [address] [facility] [place] [address] PCP - General Family Medicine 08/03/24 Special Event Assistant Relationship Specialty Start Date End Date Unallocated, Arjun Vo MD [facility] [address] [facility] [place] [address] PCP - General Family Medicine 08/03/24 Special Event Assistant Relationship Specialty Start Date End Date Unallocated, Arjun Vo MD [facility] [place] [address] PCP - General Family Medicine 08/03/24 Special Event Assistant Relationship Specialty Start Date End Date Unallocated, Arjun Vo MD [facility] [place] [address] PCP - General Family Medicine 08/03/24 Special Event Assistant Relationship Specialty Start Date End Date Unallocated, Arjun Vo MD [facility] [address] [facility] [place] [address] PCP - General Family Medicine 08/03/24 Special Event Assistant Relationship Specialty Start Date End Date Unallocated, Arjun Vo MD [facility] [place] [address] PCP - General Family Medicine 08/03/24 Special Event Assistant Relationship Specialty Start Date End Date Unallocated, Arjun Vo MD [address] [place] [address] PCP - General Family Medicine 08/03/24 Special Event Assistant Relationship Specialty Start Date End Date Unallocated, [place] [address] PCP - General Family Medicine 08/03/24 Special Event Assistant Relationship Specialty Start Date End Date Unallocated, [place] [address] PCP - General Family Medicine 08/03/24 Special Event Assistant Relationship Specialty Start Date End Date Unallocated, [place] [address] PCP - General Family Medicine 08/03/24 Special Event Assistant Relationship Specialty Start Date End Date Unallocated, [place] [address] PCP - General Family Medicine 08/03/24 Special Event Assistant Relationship Specialty Start Date End Date Unallocated, [place] [address] PCP - General Family Medicine 08/03/24 Special Event Assistant Relationship Specialty Start Date End Date Unallocated, [facility] [place] [address] PCP - General Family Medicine 08/03/24 Special Event Assistant Relationship Specialty Start Date End Date Unallocated, [place] [address] PCP - General Family Medicine 08/03/24 Goals [...] BE BASED ON THE PRIMARY CLINICAL RECORDS. [facility], [facility]. provides no warranty or guarantee of the accuracy or completeness of information in this document.
[2025-06-19 17:11] VITALS: BP 134/76; PULSE 81
== END 2025-06-19 17:58 | disposition home or self-care (01) ==
LOC: FBCO 17:01 → FBC 17:05
PROVIDERS: PCP Nurse Practitioner Family; Visit Provider Obstetrics & Gynecology
DX: O24.419 Gestational diabetes mellitus in pregnancy, unspecified control (principal)
CPT/HCPCS: 59025

== ENCOUNTER 2025-06-22 10:49 | Outpatient (OUT) | payer BC, OTHER, SELFPAY ==
--- OUTSIDE RECORDS SUMMARY | 2025-06-11 07:48 | XMS_ITS | Encounter Summary ---
Author Organization [facility] [employer] 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 Name Role Phone Unavailable Primary Care Provider Unavailabl e Reason for Referral * Diagnostic Imaging (Routine) - Pending Review Specialty Diagnoses / Procedures Referred By Ashly thomson Referred To Contact Maternal and Medicine Diagnoses Poor growth affecting management of mother in third trimester, single or unspecified fetus Gestational diabetes mellitus (GDM) in third trimester, gestational diabetes method of control unspecified Procedures US [facility] with or without consult Chris Martin MD [address], [address] [place] [address] Phone: tel: fax: Maternal- Medicine at [place] [address] [place] [address] Phone: tel: fax: Referral ID Status Reason Start Date Expiration Date V isits Requested Visits Authorized [id number] Pending Review 06/04/2025 06/04/2026 1 1 Reason for Visit * Diagnostic Imaging (Routine) - Pending Review Specialty Diagnoses / Procedures Referred By Ashly thomson Referred To Contact Maternal and Medicine Diagnoses Poor growth affecting management of mother in third trimester, single or unspecified fetus Gestational diabetes mellitus (GDM) in third trimester, gestational diabetes method of control unspecified Procedures US [facility] with or without consult Chris Martin MD [address], [address] [place] [address] Phone: tel: fax: Maternal- Medicine at [facility] [address] [place] [address] Phone: tel: fax: Referral ID Status Reason Start Date Expiration Date V isits Requested Visits Authorized [id number] Pending Review 06/04/2025 06/04/2026 1 1 Encounter Details Date Type Department Care Team (Latest Contact Info) Description 06/11/2025 7:48 AM EDT - 06/11/2025 11:59 PM EDT Hospital Encounter [facility] - [facility] US Imaging [address] [place] [address] Poor growth affecting management of mother in third trimester, single or unspecified fetus; Gestational diabetes mellitus (GDM) in third trimester, gestational diabetes method of control unspecified Discharge Disposition: Home Social History Tobacco Use [...] Care Team (Late st Contact Info) Description 06/24/2025 2:15 PM EDT Appointment Maternal Medicine [place] [address] [place] [address] 07/02/2025 3:30 PM EDT Appointment [facility] - [facility] US Imaging [address] [place] [address] documented as of this encounter Procedures Procedure Name Priority Date/Time Associated Diagnosis Comments US MFM LMTD OB, 1 OR MORE FETUS Routine 06/11/2025 8:39 AM EDT Poor growth affecting management of mother in third trimester, single or unspecified fetus Gestational diabetes mellitus (GDM) in third trimester, gestational diabetes method of control unspecified documented in this encounter Results * US MFM LMTD OB, 1 OR MORE FETUS (06/11/2025 8:39 AM EDT) Anatomical Region Laterality Modality OB-OVERHEAD DOOR TECHNICIAN Ultrasound 06/11/2025 8:10 AM EDT Narrative 06/11/2025 10:28 AM EDT NAME: JERICA CELIS : 2000 SEX: F Accession Number: [id number] ORDERING PHYSICIAN: CHRIS MARTIN REFERRING PHYSICIAN: MACKENZIE SANDERSON Coding ----- --------- Procedures 59822: Limited OB / DANYA, 1 or More Fetuses 29249: Doppler velocimetry, ; umbilical artery Indication ----- --------- IUGR-Poor growth, Gestational diabetes, Gestational hypertension without significant proteinuria. History ----- --------- OB History 3. Para 1 T1A1 Current ----- --------- Cell free DNA low risk analysis Maternal Assessment ----- --------- Physical Exam Height 160 cm, 5 ft 3 in. Weight 80 kg, 176 lb. Initial weight 80 kg, 176 lb. BMI 31.18 kg/m . Initial BMI 31.18 kg/m . Weight gain 0 kg, 0 lb Method ----- --------- Transabdominal ultrasound examination. ----- --------- Espino . Number of fetuses: 1 Dating ----- --------- LMP on: 10/15/2024 GA by LMP 34 w + 1 d LYDIA by LMP: 07/22/2025 Previous Ultrasound on: 12/14/2024 Type of prior assessment: GA GA at prior assessment date 8 w + 3 d GA by previous U/S 34 w + 0 d LYDIA by previous Ultrasound: 07/23/2025 Assigned: based on the LMP, selected on 06/04/2025 Assigned GA (weeks days) 34 w + 1 d Assigned LYDIA: 07/22/2025 General Evaluation ----- --------- Cardiac activity Present. FHR 144 bpm. Presentation: cephalic Placenta: Placental site: posterior, fundal, previously documented away from cervical os Umbilical cord: Cord vessels: 3 vessel cord Amniotic fluid: Amount of AF: normal amount. MVP 6.1 cm Doppler ----- --------- Umbilical Artery: normal PI 0.93 64% Ebbing PS 40.20 cm/s 13% Ebbing TAmax 26.52 cm/s 14% Ebbing MD 15.44 cm/s S / D 2.54 51% Sherry Maternal Structures ----- --------- Uterus Visualized Cervix Suboptimal Approach - Transabdominal Right Ovary Not visualized Left Ovary Not visualized Cul de Sac Suboptimal Impression ----- --------- Single live intrauterine with a working diagnosis of FGR. Umbilical artery Doppler S/D ratio in normal range. Amniotic fluid MVP measures 6.1 cm. Previously seen Placentomegaly measures 6.5 cm on today's exam. Recommendations ----- --------- Please see [facility] recommendations from prior clinical and/or ultrasound report documentation. The patient is scheduled for weekly Dopplers. The patient is scheduled in two weeks for growth ultrasound and Dopplers. Continue testing as previously recommended. Subsequent follow up or other follow up as clinically determined by primary OB provider unless otherwise specified by [facility]. Results forwarded to ordering provider so they can follow up with the patient as necessary. Procedure Note Maria Luisa Patel MD - 06/11/2025 NAME: JERICA CELIS : 2000 SEX: F Accession Number: [id number] ORDERING PHYSICIAN: CHRIS MARTIN REFERRING PHYSICIAN: MACKENZIE SANDERSON Coding ----- --------- Procedures 04707: Limited OB / DANYA, 1 or More Fetuses 56894: Doppler velocimetry, ; umbilical artery Indication ----- --------- IUGR-Poor growth, Gestational diabetes, Gestational hypertensionwithout significant proteinuria. History ----- --------- OB History 3. Para 1 T1A1 Current ----- --------- Cell free DNA low risk analysis Maternal Assessment ----- --------- Physical Exam Height 160 cm, 5 ft 3 in. Weight 80 kg, 176 lb. Initialweight 80 kg, 176 lb. BMI 31.18 kg/m . Initial BMI 31.18 kg/m . Weight gain 0 kg, 0 lb Method ----- --------- Transabdominal ultrasound examination. ----- --------- Espino . Number of fetuses: 1 Dating ----- --------- LMP on: 10/15/2024 GA by LMP 34 w + 1 d LYDIA by LMP: 07/22/2025 Previous Ultrasound on: 12/14/2024 Type of prior assessment: GA GA at prior assessment date 8 w + 3 d GA by previous U/S 34 w + 0 d LYDIA by previous Ultrasound: 07/23/2025 Assigned: based on the LMP, selected on 06/04/2025 Assigned GA (weeks days) 34 w + 1 d Assigned LYDIA: 07/22/2025 General Evaluation ----- --------- Cardiac activity Present. FHR 144 bpm. Presentation: cephalic Placenta: Placental site: posterior, fundal, previously documented awayfrom cervical os Umbilical cord: Cord vessels: 3 vessel cord Amniotic fluid: Amount of AF: normal amount. MVP 6.1 cm Doppler ----- --------- Umbilical Artery: normal PI 0.93 64% Ebbing PS 40.20 cm/s 13% Ebbing TAmax 26.52 cm/s 14% Ebbing MD 15.44 cm/s S / D 2.54 51% Sherry Maternal Structures ----- --------- Uterus Visualized Cervix Suboptimal Approach - Transabdominal Right Ovary Not visualized Left Ovary Not visualized Cul de Sac Suboptimal Impression ----- --------- Single live intrauterine with a working diagnosis of FGR. Umbilical artery Doppler S/D ratio in normal range. Amniotic fluid MVP measures 6.1 cm. Previously seen Placentomegaly measures 6.5 cm on today's exam. Recommendations ----- --------- Please see [facility] recommendations from prior clinical and/or ultrasoundreport documentation. The patient is scheduled for weekly Dopplers. The patient is scheduled in two weeks for growth ultrasound andDopplers. Continue testing as previously recommended. Subsequent follow up or other follow up as clinically determined byprimary OB provider unless otherwise specified by M. Results forwarded to ordering provider so they can follow up with thepatient as necessary. Chris Martin MD [facility] ORDERABLES Final Resul t documented in this encounter Visit Diagnoses Diagnosis Poor growth affecting management of mother in third trimester, single or unspecified fetus Gestational diabetes mellitus (GDM) in third trimester, gestational diabetes method of control unspecified documented in this encounter
--- OUTSIDE RECORDS SUMMARY | 2025-06-12 15:00 | XMS_ITS | Encounter Summary ---
Author Organization [facility] Address [address] [place] [address] Care Team Providers Care Artificial Insemination Technician Name Role Phone Unallocated, Noms Provider Primary Care Provi krissy Reason for Visit * Reason Comments Routine Visit Encounter Details Date Type Department Care Team (Late st Contact Info) Description 06/12/2025 3:00 PM EDT Routine ARJUN [place] [facility] [address] [place] [address] Rossana Ramos PA [address] [facility] [address] [place], [facility]11 Third trimester ([facility]); 34 weeks gestation of ([facility]) Social History Tobacco Use Types Packs/Day [...] to check FSBS. Blood Glucose Monitoring Suppl (LendLayer Glucometer) w/Device kit 1 kit, Does not [...] Problems Diagnosis Date Noted induced hypertension, antepartum ([facility]) 05/28/2025 Gestational diabetes mellitus (GDM), antepartum ([facility]) 05/28/2025 Resolved Ambulatory Problems Diagnosis Date Noted No Resolved Ambulatory Problems Past Medical History: Diagnosis Date Anemia Gestational diabetes ([facility]) History of blood transfusion Lead poisoning Miscarriage ([facility]) Nonsmoker Post depression HISTORY PAST MEDICAL HISTORY SOCIAL HISTORY Past Medical History: Diagnosis Date Anemia Gestational diabetes ([facility]) History of blood transfusion Lead poisoning Miscarriage ([facility]) Nonsmoker Post depression /anxiety Social History Tobacco [...] ASSESSMENT & PLAN ICD-10-CM 1. Third trimester ([facility]) Z34.93 POCT urinalysis dipstick manually resulted 2. 34 weeks gestation of ([facility]) Z3A.34 POCT urinalysis dipstick manually resulted Return [...] Care Team (Late st Contact Info) Description 06/26/2025 9:10 AM EDT Routine [facility] [address] [place] [address] Megan Aranda, SITE WORKER [address] [facility] [address] [place] [address] 07/04/2025 9:40 AM EDT Routine [facility] [address] [place] [address] Megan Aranda, VLAD [address] [place] [address] documented as of this encounter Procedures Procedure Name Priority Date/Time Associated Diagnosis Comments POCT URINALYSIS DIPSTICK Routine 06/12/2025 3:32 PM EDT Third trimester ([facility]) 34 weeks gestation of ([facility]) documented in this encounter Results * (ABNORMAL) [...] this encounter Visit Diagnoses Diagnosis Third trimester ([facility]) state, incidental 34 weeks gestation of ([facility]) documented in this encounter Care Teams Artificial Insemination Technician Relationship Specialty Start Date End Date Unallocated, Noms Provider, [address] [place] [address] PCP - General Family Medicine 08/03/24 documented as of this encounter
--- OUTSIDE RECORDS SUMMARY | 2025-06-18 15:28 | XMS_ITS | Encounter Summary ---
Author Organization [facility] tem Address [facility] [place]-[facility] [address] [place] [address] Care Team Providers Care Brick Chimney Builder Name Role Phone Unavailable Primary Care Provider Unavailabl e Reason for Referral * Diagnostic Imaging (Routine) - Pending Review Specialty Diagnoses / Procedures Referred By Richaac t Referred To Contact Maternal and Medicine Diagnoses Intrauterine growth restriction affecting care of mother, unspecified trimester, not applicable or unspecified fetus Procedures US MFM with or without consult Maria Luisa Patel MD [address], [address] [place] [address] Phone: tel: fax: Maternal- Medicine at [address] [address] Phone: tel: fax: Referral ID Status Reason Start Date Expiration Date V isits Requested Visits Authorized [id number] Pending Review 06/17/2025 06/17/2026 1 1 Reason for Visit * Diagnostic Imaging (Routine) - Pending Review Specialty Diagnoses / Procedures Referred By Contac t Referred To Contact Maternal and Medicine Diagnoses Intrauterine growth restriction affecting care of mother, unspecified trimester, not applicable or unspecified fetus Procedures US MFM with or without consult Maria Luisa Patel MD [address], [address] [place] [address] Phone: tel: fax: Maternal- Medicine at [facility] [address] [place] [address] Phone: tel: fax: Referral ID Status Reason Start Date Expiration Date V isits Requested Visits Authorized [id number] Pending Review 06/17/2025 06/17/2026 1 1 Encounter Details Date Type Department Care Team (Latest Contact Info) Description 06/18/2025 3:28 PM EDT - 06/18/2025 11:59 PM EDT Hospital Encounter [facility] - [facility] US Imaging [address] [place] [address] Intrauterine growth restriction affecting care [...] 2:15 PM EDT Appointment Maternal Medicine [facility] [place] [address] 07/02/2025 3:30 PM EDT Appointment [facility] - [facility] US Imaging [address] [place] [address] documented as of this encounter Procedures Procedure Name Priority Date/Time Associated Diagnosis Comments US MFM AMNIOTIC FLUID VOLUME ASSESSMENT Routine 06/18/2025 4:50 PM EDT Intrauterine growth restriction affecting care of mother, unspecified trimester, not applicable or unspecified fetus documented in this encounter Results * US MFM AMNIOTIC FLUID VOLUME ASSESSMENT (06/18/2025 4:50 PM EDT) Anatomical Region Laterality Modality OB-GUN NUMBER Ultrasound 06/18/2025 4:12 PM EDT Narrative 06/18/2025 5:44 PM EDT NAME: JERICA CELIS : 2000 SEX: F Accession Number: [id number] ORDERING PHYSICIAN: MARIA LUISA PATEL REFERRING PHYSICIAN: MACKENZIE SANDERSON Coding ----- --------- Procedures 86282: Ultrasound, uterus, real time with image documentation, limited one or more fetuses 90007: Doppler velocimetry, ; umbilical artery Indication ----- [...] CELIS : 2000 SEX: F Accession Number: [id number] ORDERING PHYSICIAN: MARIA LUISA PATEL REFERRING PHYSICIAN: MACKENZIE SANDERSON Coding ----- --------- Procedures 86042: Ultrasound, uterus, real time with imagedocumentation, limited one or more fetuses 39269: Doppler velocimetry, ; umbilical artery Indication ----- [...] byprimary OB provider unless otherwise specified by [facility]. Results forwarded to ordering provider so they can follow up with thepatient as necessary us Maria Luisa Patel MD IMG US ORDERABLES Final Re sult documented in this encounter Visit Diagnoses Diagnosis Intrauterine growth restriction affecting care of mother, unspecified trimester, not applicable or unspecified fetus documented in this encounter
--- OUTSIDE RECORDS SUMMARY | 2025-06-19 14:29 | XMS_ITS ---
Author Name Auto Generated Organization OHIP Support Name Relationship Address Phone RAMANA MARCUM Next of Kin Unknown + ERWIN AUSTIN Next of Kin Unknown [phone] GEOVANNA PIZANO Next of Kin Unknown [phone] RAMANA MARCUM Next of Kin Unknown Unavailable ASIA MARCUMI Next of Kin Unknown + ERWIN [place] Next of Kin Unknown [phone] GEOVANNA PIZANO Next of Kin Unknown [phone] ASIA MARCUMI Next of Kin Unknown Unavailable ASIA MARCUMI Next of Kin Unknown Unavailable ASIA MARCUMI Next of Kin Unknown Unavailable ASIA MARCUMI Next of Kin Unknown + ERWIN [place] Next of Kin Unknown [phone] GEOVANNA PIZANO Next of Kin Unknown [phone] JOSSUE RAMANA Next of Kin Unknown + ERWIN [place] Next of Kin Unknown [phone] GEOVANNA PIZANO Next of Kin Unknown [phone] JOSSUE RAMANA Next of Kin Unknown + ERWIN [place] Next of Kin Unknown [phone] GEOVANNA PIZANO Next of Kin Unknown [phone] JOSSUE RAMANA Next of Kin Unknown Unavailable JOSSUEASIAI Next of Kin Unknown + ERWIN [place] Next of Kin Unknown [phone] GEOVANNA PIZANO Next of Kin Unknown [phone] RAMANA MARCUM Next of Kin Unknown + ERWIN [place] Next of Kin Unknown [phone] GEOVANNA PIZANO Next of Kin Unknown [phone] RAMANA MARCUM Next of Kin Unknown + GEOVANNAERWIN YOO Next of Kin Unknown [phone] GEOVANNA PIZANO Next of Kin Unknown [phone] RAMANA MARCUM Next of Kin Unknown + GEOVANNAASCENCIONIE Next of Kin Unknown [phone] GEOVANNA PIZANO Next of Kin Unknown [phone] RAMANA MARCUM Next of Kin Unknown + ASCENCION AUSTINIE Next of Kin Unknown [phone] GEOVANNA PIZANO Next of Kin Unknown [phone] RAMANA MARCUM Next of Kin Unknown + ERWIN [place] Next of Kin Unknown [phone] MAGDA PIZANOIG Next of Kin Unknown [phone] ASIA MARCUMI Next of Kin Unknown + GEOVANNAERWIN YOO Next of Kin Unknown [phone] GEOVANNA PIZANO Next of Kin Unknown [phone] ASIA MARCUMI Next of Kin Unknown + GEOVANNAASCENCION YOOIE Next of Kin Unknown [phone] GEOVANNA PIZANO Next of Kin Unknown [phone] ASIA MARCUMI Next of Kin Unknown + GEOVANNA PIZANO Next of Kin Unknown [phone] Marin Deven Next of Kin [address] [place] [address] + ASIA MARCUMI Next of Kin Unknown + MARIN GEOVANNA Next of Kin Unknown [phone] ASIA MARCUMI Next of Kin Unknown + PIZANO GEOVANNA Next of Kin Unknown [phone] Care Team Providers Care [employer] Tech Name Role Phone NO FAMILY, PHYSICIAN Primary Care Unavailable Mackenzie Rodriguez Attending Unavailable Mackenzie Rodriguez Admitting Unavailable IRLANDA LONDON Attending Unavailable MARIA E, MACKENZIE R Referring Unavailable MARIA E, MACKENZIE R Attending Unavailable MARIA E, MACKENZIE R Referring Unavailable MARIOMANAS Attending Unavailable MARIA E, MACKENZIE R Referring Unavailable MARIA E, MACKENZIE R Referring Unavailable MARIA E, MACKENZIE R Referring Unavailable MARIA E, MACKENZIE Attending Unavailable HAYLEE, COLLIN Attending Unavailable MARIA E, MACKENZIE Attending Unavailable HAYLEE, COLLIN Attending Unavailable HAYLEE, COLLIN Attending Unavailable HAYLEE, COLLIN Attending Unavailable MAIRA E, MACKENZIE Attending Unavailable MARIA E, MACKENZIE Attending Unavailable MARIA E, MACKENZIE Attending Unavailable HAYLEE, COLLIN Attending Unavailable MARIA E, MACKENZIE Attending Unavailable MARIA E, MACKENZIE Attending Unavailable HAYLEE, COLLIN Attending Unavailable PROBLEMS DATE TYPE CONDITION / CODE ATTENDING STATUS [facility] 06/18/2025 Unknown Maternal care fo r other known or suspected poor growth, unspecified trimester, not applicable or unspecified / O36.5990(ICD-10) [facility] 06/04/2025 Unknown Maternal care fo r other known or suspected poor growth, third trimester, not applicable or unspecified / O36.5930(ICD-10) MARIO MANAS [facility] 06/04/2025 Unknown Encounter for ot her specified screening / Z36.89(ICD-10) MARIA E MACKENZIE R [facility] 05/13/2025 Unknown Gestational diab etes mellitus in , unspecified control / O24.419(ICD-10) SURYA IRLANDA [facility] 05/13/2025 Unknown Gestational Diab etes / FREETEXT(AOF) [facility] PROCEDURES No Procedure Records Found RESULTS US OB TRANSVAGINAL Observed: 12/14/2024 8:26 AM Status: F Source: [facility] EPIC Order Comment: US OB TRANSVA GINAL No LMP recorded. EXAM: US OB TRANSVAGINAL HISTORY: Dating. COMPARISON: [...] II, MD, PHD at 14-Dec-2024 08:35:59 PM [facility] Observed: 08/10/2024 10:02 AM Status: Nicholas Source: [facility] ----- ------- Specimen: [id number] Received: 08/10/24 Status: CAROL Hoang Num: [id number] Spec Type: Surgical Subm Dr: Mackenzie Rodriguez Tissues: A Products of Conception - Spontaneous or Missed (CONTENTS OF CONCEPT Procedures: HE/2, Gross/Micro L4 ----- ------- Age/ Patient Sex Location Account Attending Physician ----- ------- Vimal Pizano LABELL [id number] Mackenzie Rodriguez ----- ------- SPEC NUM: [id number] RECD: 08/10/24 STATUS: CAROL ELENA NUM: [id number] CAROLIN: 08/10/[address] [facility] [address]: Mackenzie Rodriguez ENTERED: 08/10/[address] [facility] [address]: Rafia,Lab SPEC TYPE: Surgical DEPT: MONICA ALTMAN ENTERED BY: [id number] RECV BY: [id number] ORDERED: HE/2, Gross/Micro L4 ORDERED: HE/2, Gross/Micro [...] villi and decidua. No tissue is identified. Study Hall Supervisor sections of the chorionic villi are submitted in cassette A1 with direct marketing representative sections of the decidua is submitted in cassette A2. (2, ss, [id number] A) CPT Codes 39477 ----- ------- ----- ------- Specimen: [id number] Received: 08/10/24 Status: CAROL Hoang Num: [id number] Spec Type: Surgical Subm Dr: Mackenzie Rodriguez Tissues: A Products of Conception - Spontaneous or Missed (CONTENTS OF CONCEPT Procedures: Odell CHAIDEZ/Agusto L4 ----- ------- Patient: Vimal Pizano [id number] (Continued) ----- ------- Signed (signature on file) Josh Aragon MD 08/13/24 [id number] ALLERGIES DATE TYPE / CODE NAME / CODE REACTION SEVERITY SOURCE Drug Class/[id number](SNO MED CT) NO KNOWN ALLERGIES [facility] ENCOUNTERS ADMIT/DISCHARGE ACCOUNT NUMBER ADMITTING ENCOUNTER CLASS LOCATION SOURCE 06/19/2025/06/19/20 25 [id number] Ambulatory Building:[facility] 06/18/2025/06/18/20 25 [id number] Ambulatory Building:[facility] 06/12/2025/06/12/20 25 [id number] Ambulatory Building:[facility] 06/11/2025/06/11/20 25 [id number] Ambulatory Building:[facility] 06/04/2025/06/04/20 25 [id number] Ambulatory Buildin 4 [facility] 06/04/2025/06/04/20 25 [id number] Ambulatory Building:[facility] 05/28/2025/05/28/20 25 [id number] Ambulatory Building:[facility] 05/22/2025/05/22/20 25 [id number] Ambulatory Building:[facility] 05/14/2025/05/14/20 25 [id number] Ambulatory Building:[facility] 05/13/2025/05/13/20 25 [id number] Ambulatory Buildin 4 [facility] 04/30/2025/04/30/20 25 [id number] Ambulatory Building:[facility] 04/25/2025/04/25/20 25 [id number] Ambulatory Building:[facility] EPIC 04/11/2025/04/11/20 25 [id number] Ambulatory Building:[facility] EPIC 03/14/2025/03/14/20 25 [id number] Ambulatory Building:[facility] EPIC 02/20/2025/02/21/20 25 [id number] Ambulatory Building:[facility] 01/14/2025/01/15/20 25 [id number] Ambulatory Building:[facility] 12/14/2024/12/15/19 25 [id number] Ambulatory Building:[facility] EPIC 12/14/2024/12/15/19 [id number] Ambulatory Building:[facility] EPIC 08/20/2024/08/20/20 [id number] Ambulatory Building:[facility] EPIC 08/10/2024/08/10/20 [id number] [facility] 08/06/2024/08/06/20 [id number] Ambulatory Building:[facility] EPIC 06/29/2024/06/29/20 [id number] Ambulatory Building:[facility] EPIC PAYERS ENCOUNTER GUARANTOR PAYER SUBSCRIBER SOURCE 06/19/2025 VIMAL CARDONAB: [place], [place] [address]Uvv: () Primary Insurance:BCBSPolicy Number: [id number] Date:2021-09-26 DEVEN CARDONAB: [id number] [address] [facility] EPIC 06/19/2025 Secondary Insurance:[facility] MEDICAIDPolicy Number: [id number] Date:2023-01-24 VIMAL CARDONAB: [id number] [place] [address] [facility] EPIC 06/18/2025 VIMAL CARDONAB: [place] [id number]: (HP) (WP) Primary Insurance:BLUE ACCESS (PPO)Policy Number: [id number] Date:2024-09-26 DEVEN CARDONAB: [id number] [place], [place] [address]Tel: (WP) [facility] 06/18/2025 Secondary Insurance:[place] MEDICAIDPolicy Number: [id number] Date:2024-12-25 VIMAL TREJO MARINDOB: [id number] [place], [place] [address]Evq: (HP) [facility] 06/12/2025 VIMAL Kyler MARINDOB: [place], [place] [address]Dna: (HP) Primary Insurance:BCBSPolicy Number: [id number] Date:2021-09-26 DEVEN CARDONAB: [id number] [place] [address] [facility] 06/12/2025 Secondary Insurance:[facility] MEDICAIDPolicy Number: [id number] Date:2023-01-24 VIMAL Kyler BRENDANB: [id number] [place] [address] [facility] 06/11/2025 VIMAL PIZANODOB: [place], [place] [address]Pko: (HP) (WP) Primary Insurance:BLUE ACCESS (PPO)Policy Number: [id number] Date:2024-09-26 DEVEN PIZANODOB: [id number] [place], [place] [address]Rcx: (WP) [facility] 06/11/2025 Secondary Insurance:[place] MEDICAIDPolicy Number: [id number] Date:2024-12-25 VIMAL CARDONAB: [id number] [place], [place] [address]Stl: (HP) [facility] 06/04/2025 VIMAL CARDONAB: [place], [place] [address]Ldc: (HP) (WP) Primary Insurance:BLUE ACCESS (PPO)Policy Number: [id number] Date:2024-09-26 DEVEN CARDONAB: [id number] [place], [place] [address]Qbf: (WP) [facility] 06/04/2025 Secondary Insurance:[place] MEDICAIDPolicy Number: [id number] Date:2024-12-25 VIMAL CARDONAB: [id number] [place], [place] [address]Gpw: (HP) [facility] 06/04/2025 VIMAL CARDONAB: [place], [place] [address]Wmb: (HP) (WP) Primary Insurance:BLUE ACCESS (PPO)Policy Number: [id number] Date:2024-09-26 DEVEN CARDONAB: [id number] [place], [place] [address]Ffz: (WP) [facility] 06/04/2025 Secondary Insurance:[place] MEDICAIDPolicy Number: [id number] Date:2024-12-25 VIMAL CARDONAB: [id number] [place], [place] [address]Dmk: (HP) [facility] 05/28/2025 VIMAL CARDONAB: [place], [place] [address]Qba: (HP) Primary Insurance:BCBSPolicy Number: [id number] Date:2021-09-26 DEVEN CARDONAB: [id number] [facility] [address] [facility] 05/28/2025 Secondary Insurance:[facility] MEDICAIDPolicy Number: [id number] Date:2023-01-24 VIMAL Kyler JANAANDDOB: [id number] [place] [id number] [facility] EPIC 05/22/2025 VIMAL Kyler JANAANDDOB: [place], [place] [address]Nyo: (HP) Primary Insurance:BCBSPolicy Number: [id number] Date:2021-09-26 DEVEN PIZANODOB: [id number] [address] [facility] EPIC 05/22/2025 Secondary Insurance:[facility] MEDICAIDPolicy Number: [id number] Date:2023-01-24 VIMAL Kyler MARINDOB: [id number] [address] [facility] EPIC 05/14/2025 VIMAL Kyler MARINDOB: [place], [place] [address]Gwr: (HP) Primary Insurance:BCBSPolicy Number: [id number] Date:2021-09-26 DEVEN PIZANODOB: [id number] [address] [facility] EPIC 05/14/2025 Secondary Insurance:[facility] MEDICAIDPolicy Number: [id number] Date:2023-01-24 VIMAL Kyler MARINDOB: [id number] [address] [facility] EPIC 05/13/2025 VIMAL PIZANODOB: [place] [id number]: (HP) (WP) Primary Insurance:[place] MEDICAIDPolicy Number: [id number] Date:2024-12-25 VIMAL PIZANODOB: [id number] [place], [place] [address]Oqk: (HP) [facility] 05/13/2025 Secondary Insurance:BLUE ACCESS (PPO)Policy Number: [id number] Date:2024-09-26 DEVEN PIZANODOB: [id number] [place], [place] [address]Ixv: () [facility] 04/30/2025 VIMAL PIZANODOB: [place], [place] [address]Fpe: (HP) Primary Insurance:BCBSPolicy Number: [id number] Date:2021-09-26 DEVEN PIZANODOB: [id number] [place] [id number] [facility] EPIC 04/30/2025 Secondary Insurance:[facility] MEDICAIDPolicy Number: [id number] Date:2023-01-24 VIMAL PIZANODOB: [id number] [place] [id number] [facility] EPIC 04/25/2025 VIMAL PIZANODOB: [place], [place] [address]Znc: (HP) Primary Insurance:BCBSPolicy Number: [id number] Date:2021-09-26 DEVEN CARDONAB: [id number] [place] [id number] [facility] EPIC 04/25/2025 Secondary Insurance:[facility] MEDICAIDPolicy Number: [id number] Date:2023-01-24 VIMAL PIZANODOB: [id number] [place] [id number] [facility] EPIC 04/11/2025 VIMAL CARDONAB: [place], [place] [address]Oxj: (HP) Primary Insurance:BCBSPolicy Number: [id number] Date:2021-09-26 DEVEN PIZANODOB: [id number] [place] [address] [facility] EPIC 04/11/2025 Secondary Insurance:[facility] MEDICAIDPolicy Number: [id number] Date:2023-01-24 VIMAL BATESANDDOB: [id number] [place] [id number] [facility] EPIC 03/14/2025 VIMAL BATESANDDOB: [place] [id number]: (HP) Primary Insurance:BCBSPolicy Number: [id number] Date:2021-09-26 DEVEN PIZANODOB: [id number] [place] [id number] [facility] EPIC 03/14/2025 Secondary Insurance:[facility] MEDICAIDPolicy Number: [id number] Date:2023-01-24 VIMAL PIZANODOB: [id number] [place] [id number] [facility] EPIC 02/20/2025 VIMAL PIZANODOB: [place], [place] [address]Iep: (HP) Primary Insurance:BCBSPolicy Number: [id number] Date:2021-09-26 DEVEN PIZANODOB: [id number] [place] [id number] [facility] EPIC 02/20/2025 Secondary Insurance:[facility] MEDICAIDPolicy Number: [id number] Date:2023-01-24 VIMAL BATESANDDOB: [id number] [place] [id number] [facility] EPIC 01/14/2025 VIMAL PIZANODOB: [place] [id number]: (HP) Primary Insurance:BCBSPolicy Number: [id number] Date:2021-09-26 DEVEN PIZANODOB: [id number] [place] [id number] [facility] EPIC 01/14/2025 Secondary Insurance:[facility] MEDICAIDPolicy Number: [id number] Date:2023-01-24 VIMAL PIZANODOB: [id number] [address] [facility] EPIC 12/14/2024 VIMAL PIZANODOB: [place], [place] [address]Tel: (HP) Primary Insurance:BCBSPolicy Number: [id number] Date:2021-09-26 DEVEN PIZANODOB: [id number] [address] [facility] EPIC 12/14/2024 Secondary Insurance:[facility] MEDICAIDPolicy Number: [id number] Date:2023-01-24 VIMAL PIZANODOB: [id number] [address] [facility] EPIC 12/14/2024 VIMAL PIZANODOB: [place] [id number]: (HP) Primary Insurance:BCBSPolicy Number: [id number] Date:2021-09-26 DEVEN PIZANODOB: [id number] [address] [facility] EPIC 12/14/2024 Secondary Insurance:[facility] MEDICAIDPolicy Number: [id number] Date:2023-01-24 VIMAL PIZANODOB: [id number] [address] [facility] EPIC 08/20/2024 VIMAL CARDONAB: [place], [place] [address]Cuy: (HP) Primary Insurance:BCBSPolicy Number: [id number] Date:2021-09-26 DEVEN PIZANODOB: [id number] [place] [address] [facility] EPIC 08/20/2024 Secondary Insurance:[facility] MEDICAIDPolicy Number: [id number] Date:2023-01-24 VIMAL PIZANODOB: [id number] [place] [id number] [facility] EPIC 08/10/2024 Vimal Watson87 [place] [address]Xiz: (HP) Primary Insurance:Self PayPolicy Number: Effective Date:2024-08-10 [facility] 08/06/2024 VIMAL CARDONAB: [place], [place] [address]Jnu: (HP) Primary Insurance:BCBSPolicy Number: [id number] Date:2021-09-26 DEVEN CARDONAB: [id number] [place] [id number] [facility] EPIC 08/06/2024 Secondary Insurance:[facility] MEDICAIDPolicy Number: [id number] Date:2023-01-24 VIMAL PIZANODOB: [id number] [place] [address] [facility] EPIC 06/29/2024 VIMAL CARDONAB: [place], [place] [address]Tsf: (HP) Primary Insurance:BCBSPolicy Number: [id number] Date:2021-09-26 DEVEN CARDONAB: [id number] [place] [id number] [facility] EPIC 06/29/2024 Secondary Insurance:[facility] MEDICAIDPolicy Number: [id number] Date:2023-01-24 VIMAL XIE: [id number] [place] [address] [facility] EPIC
--- OUTSIDE RECORDS SUMMARY | 2025-06-19 14:40 | XMS_ITS | Encounter Summary ---
Author Organization [facility] Address [address] [place] [address] Care Team Providers Care Microwave Remote Sensing Scientist Name Role Phone Unallocated, Noms Provider Primary Care Provi krissy Reason for Visit * Reason Comments Routine Visit Encounter Details Date Type Department Care Team (Late st Contact Info) Description 06/19/2025 2:40 PM EDT Routine [facility] [place] [facility] [address] [place] [address] Jose Rodriguez DO [address] [facility] [address] Josué [place], [facility] Third trimester ([facility]); 35 weeks gestation of ([facility]); Diet controlled gestational diabetes mellitus (GDM), antepartum ([facility]); induced hypertension, antepartum ([facility]) Social History [...] to check FSBS. Blood Glucose Monitoring Suppl ([employer] Glucometer) w/Device kit 1 kit, Does not [...] History of blood transfusion Lead poisoning Miscarriage ([facility]) Nonsmoker Post depression HISTORY PAST MEDICAL HISTORY SOCIAL HISTORY Past Medical History: Diagnosis Date Anemia Gestational diabetes ([facility]) History of blood transfusion Lead poisoning Miscarriage ([facility]) Nonsmoker Post depression /anxiety Social History [...] note reviewed. Exam conducted with a child care supervisor present. Vitals: Estimated body mass index is 31.89 kg/m?? as calculated from the following: Height as of 01/06/23: 5' 3 . Weight as of this encounter: 180 lb. BP: 142/86 Patient's last menstrual period was 10/15/2024 (exact date). ASSESSMENT & PLAN ICD-10-CM 1. Third trimester ([facility]) Z34.93 POCT urinalysis dipstick manually resulted 2. 35 weeks gestation of ([facility]) Z3A.35 3. Diet controlled gestational diabetes mellitus (GDM), antepartum ([facility]) O24.410 4. induced hypertension, antepartum ([facility]) O13.9 Return OB: Patient presents today [...] [facility] [address] [facility] [place] [phone] Megan Aranda NP [address] [place] [id number] 07/04/2025 9:40 AM EDT Routine [facility] [place] [facility] [address] [facility] [place] [phone] Megan Aranda NP [address] [place] [address] documented as of this encounter Procedures Procedure Name Priority Date/Time Associated Diagnosis Comments POCT URINALYSIS DIPSTICK Routine 06/19/2025 3:05 PM EDT Third trimester ([facility]) documented in this encounter Results * (ABNORMAL) POCT urinalysis dipstick manually resulted (06/19/2025 3:05 PM EDT) Color, UA Yellow Clarity, UA Cloudy Glucose, UA 1+ Negative - 1999(110) ++++ mg/dL Bilirubin, UA Negative Negative - 4(70) +++ mg/dL Ketones, UA Negative Negative - 160(16) ++++ mg/dL Spec Grav, UA 1.015 1 - 1.03 Blood, UA Negative Negative - 50 Jason/mcL pH, UA 6.0 5 - 9 Protein, UA 1+ Negative - 1999(20) ++++ mg/dL Urobilinogen, UA 1.0 0.2 - 12 mg/dL Leukocytes, UA Negative Negative - 500+++ Carlos/mcL Nitrite, UA Negative Negative - Positive Urine 06/19/2025 3:05 PM EDT Jose Rodriguez DO POINT OF CARE TEST ENTER/EDIT OR DERABLES Final Result documented in this encounter Visit Diagnoses Diagnosis Third trimester ([facility]) state, incidental 35 weeks gestation of ([facility]) Diet controlled gestational diabetes mellitus (GDM), antepartum ([facility]) induced hypertension, antepartum ([facility]) Transient hypertension of , antepartum documented in this encounter Care Teams Microwave Remote Sensing Scientist Relationship Specialty Start Date End Date Unallocated, Noms Provider, [address] [place] [address] PCP - General Family Medicine 08/03/24 documented as of this encounter
--- NOTE | 2025-06-22 | US_ITS ---
[address] [address] Patient Name: VIMAL PIZANO MRN: [id number] date: 2000 Sex: F Assigned Patient Location: [facility] Current Patient Location: Accession/Order Number: [id number] Exam Date: 06/22/2025 10:52 Report Date: 06/22/2025 19:28 At the request of: COLLIN LEACH Procedure: US OB BPP w non-stress US OB BPP w non-stress 06/22/2025 11:11 AM SIGNS AND SYMPTOMS: ^ RELATED HYPERTENSION PROTOCOL: Transabdominal sonographic imaging of the gravid uterus COMPARISON: None FINDINGS: Estimated gestational age: 35 weeks 5 days heart rate: 153 bpm Amniotic fluid index: 10.51 cm. The deepest vertical pocket measures 4.4 cm. Biophysical profile: breathing movements: 2/2 Gross body movements: 2/2 tone: 2/2 Amniotic fluid volume: 2/2 US/US OB BPP w non-stress IMPRESSION: Biophysical profile: 05/03 Impression dictated by: Heriberto Acharya M.D. 06/22/2025 7:28 PM Dictation Location: [facility]ILL[facility] Electronically authenticated by: [id number] Y Date: 06/22/2025 19:28
--- OUTSIDE RECORDS SUMMARY | 2025-06-22 10:52 | XMS_ITS | Encounter Summary ---
Author Organization [facility] Address [address] [place] [address] Care Team Providers Care Paste Mixer Name Role Phone Unallocated, Noms Provider Primary Care Provi krissy Encounter Details Date Type Department Care Team (Late Contact Info) Description 05/08/2025 Abstract ARJUN PANG [address] [place] [place] [address] Jose Rodriguez DO [address] [place], [facility] Social History Tobacco Use Types Packs/Day [...] Department Care Team (Late Contact Info) Description 06/26/2025 9:10 AM EDT Routine [facility] P[facility] [address] [place] [place] [address] Megan Aranda, SAGGER MAKER [address] [place] [address] 07/04/2025 9:40 AM EDT Routine [facility] TREVIÑOGYN [address] [place] [place] [address] Megan Aranda, VLAD [address] [place] [address] documented as of this encounter Visit Diagnoses Not on filedocumented in this encounter Care Teams Paste Mixer Relationship Specialty Start Date End Date Unallocated, Noms Gilda, [address] [place] [address] PCP - General Family Medicine 08/03/24 documented as of this encounter
--- OUTSIDE RECORDS SUMMARY | 2025-06-22 10:52 | XMS_ITS | Encounter Summary ---
Author Organization [facility] Address [address] [place] [address] Care Team Providers Care Public Opinion Survey Taker Name Role Phone Unallocated, Noms Provider Primary Care Provi krissy Encounter Details Date Type Department Care Team (Late st Contact Info) Description 08/10/2024 Clinisync Result Encounter [facility] External Department Unsolicited Mackenzie Rodriguez DO [address] [place], [facility]11 Social History [...] 06/26/2025 9:10 AM EDT Routine [facility] [place] PANG [address] [place] [phone] Megan Aranda, VLAD [address] [place] [phone] 07/04/2025 9:40 AM EDT Routine [facility] [place] OBGYN [address] [facility] [place] [address] Megan Aranda, VLAD [address] [facility] [address] [place] [address] documented as of this encounter Procedures Procedure Name Priority Date/Time Associated Diagnosis Comments US OB TRANSVAGINAL 08/10/2024 8: 44 AM EST documented in this encounter Results * US OB TRANSVAGINAL (08/10/2024 8:44 AM EST) Anatomical Region Laterality Modality Other 08/10/2024 8:44 AM EST Narrative 08/10/2024 8:47 AM EST The [address] [address] Ultrasound Report Signed Patient: VIMAL FUNES MR#: [id number] : 2000 Acct:[id number] Age/Sex: 24 / F ADM Date: 08/10/24 Loc: SURGOUT Attending Dr: Mackenzie Rodriguez D.O. Ordering Physician: Mackenzie Rodriguez D.O. Date of Service: 08/10/24 Procedure(s): US OB transvaginal Accession Number(s): [id number] cc: LUIS SEE ; Mackenzie Rodriguez D.O. The [address] [address] Patient Name: VIMAL FUNES MRN: [id number] date: 2000 Sex: F Assigned Patient Location: [facility] Accession/Order Number: [id number] Exam Date: 08/10/2024 08:10 Report Date: 08/10/2024 [...] M.D. Signed By: 08/10/24846 DD/ 3 TD/TT: Punch Molder: Procedure Note Radiology, Radiologist, MD - 08/10/2024 [place] [address] Ultrasound Report Signed Patient: VIMAL FUNES MMR#: [id number] : 2000Acct:[id number] Age/Sex: Date: 08/10/24 Loc: SURGOUT Attending Dr: Mackenzie Rodriguez D.O. Ordering Physician: Mackenzie Rodriguez D.O. Date of Service: 08/10/24 Procedure(s): US OB transvaginal Accession Number(s): [id number] cc: LUIS SEE ; Mackenzie Rodriguez D.O. The [place] [id number] Patient Name: VIMAL FUNES MRN: [id number] date: 2000 Sex: F Assigned Patient Location: [facility] Current Patient Location: [facility] Accession/Order Number: [id number] Exam Date: 08/10/2024 08:10 Report Date: 08/10/2024 [...] Lavon Herrera M.D. Signed By:08/10/2447 DD/ TD/TT: Punch Molder: us Mackenzie Michael DO [facility] Final Result documented in this encounter Visit Diagnoses Not on filedocumented in this encounter Care Teams Public Opinion Survey Taker Relationship Specialty Start Date End Date Unallocated, Noms Provider, [address] [place] [address] PCP - General Family Medicine 08/03/24 documented as of this encounter
--- OUTSIDE RECORDS SUMMARY | 2025-06-22 10:52 | XMS_ITS | Encounter Summary ---
Author Organization [facility] tem Address [id number] [address] [place] [address] Care Team Providers Care Dental Surgery Doctor Name Role Phone Unavailable Primary Care Provider [...] 2:15 PM EDT Appointment Maternal Medicine Tianna [facility] [address] [place] [phone] 07/02/2025 3:30 PM EDT Appointment [facility] US Imaging [address] [place] [address] documented as of this encounter Visit Diagnoses Not on filedocumented in this encounter
--- OUTSIDE RECORDS SUMMARY | 2025-06-22 10:52 | XMS_ITS | Encounter Summary ---
Author Organization [facility] Address [address] [place] [address] Care Team Providers Care Computer Game Tester Name Role Phone Vaishali Zapata MD Primary Care Provider Bipin cheng Unallocated, Noms Provider Primary Care Provi krissy Encounter Details Date Type Department Care Team (Late st Contact Info) Description 08/02/2024 Abstract [facility]JUN PANG [address] [facility] [place] [address] Jose Rodriguez DO [address] Josué [place], [place] [address] Social History Tobacco Use Types Packs/Day Years [...] Info) Description 06/26/2025 9:10 AM EDT Routine ARJUN PANG [address] [place] [address] Megan Aranda, VLAD [address] [facility] [address] [place] [place] [address] 07/04/2025 9:40 AM EDT Routine [facility] [place] PANG [address] [facility] [place] [address] Megan Aranda, FOOD ADVISER [address] [facility] [address] [place] [place] [address] documented as of this encounter Visit Diagnoses Not on filedocumented in this encounter Care Teams Computer Game Tester Relationship Specialty Start Date End Date Vaishali Zapata MD [address] [place] [address] PCP - General Family Medicine 02/04/23 08/02/24 Unallocated, Noms MD Gilda [address] [place] [address] PCP - General Family Medicine 08/03/24 documented as of this encounter
--- OUTSIDE RECORDS SUMMARY | 2025-06-22 10:52 | XMS_ITS | Encounter Summary ---
Author Organization [facility] Address [address] [place] [address] Care Team Providers Care General Internal Medicine Physician Name Role Phone Unallocated, Noms Provider Primary Care Provi krissy Encounter Details Date Type Department Care Team (Late st Contact Info) Description 05/07/2025 Results Follow-Up ARJUN [place] OBGYKeegan [address] [facility] [address] [place] [address] Glenna Butler LPN [address] [place] [address] ALL CBC WITH AUTO DIFF, [...] 9:10 AM EDT Routine NOMMay PANG [address] [facility] [place] [address] Megan Aranda NP [address] [facility] [address] [place] [address] 07/04/2025 9:40 AM EDT Routine NOMMay PANG [address] [place] [address] Megan Aranda NP [address] [facility] [address] [place] [address] documented as of this encounter Visit Diagnoses Not on filedocumented in this encounter Care Teams General Internal Medicine Physician Relationship Specialty Start Date End Date Unallocated, Noms Gilda, [address] [facility] [place] [address] PCP - General Family Medicine 08/03/24 documented as of this encounter
--- OUTSIDE RECORDS SUMMARY | 2025-06-22 10:52 | XMS_ITS | Encounter Summary ---
Author Organization [facility] tem Address [id number] [address] [place] [address] Care Team Providers Care Graduate Assistant Athletic Trainer Name Role Phone Unavailable Primary Care Provider [...] 2:15 PM EDT Appointment Maternal Medicine Tianna [facility] [address] [place] [phone] 07/02/2025 3:30 PM EDT Appointment [facility] US Imaging [address] [place] [address] documented as of this encounter Visit Diagnoses Not on filedocumented in this encounter
--- OUTSIDE RECORDS SUMMARY | 2025-06-22 10:53 | XMS_ITS | Patient Health Record ---
Author Organization [facility] in [place] Address [address] [place] [address] Care Team Providers Care Investments Manager Name Role Phone Jennifer See Primary Care Provider [phone] Allergies No Known Allergies Results Component Value Reference Range Notes Type and Screen Reviewed date:07/23/2024 08:22:00 AM Interpretation: Performing Lab: Notes/Report: [facility] , Blood Type A Positive Antibody Screen NEGATIVE Rapid Plasma Reagin, Quant Reviewed date:07/23/2024 08:22:00 [...] utilized, such as Treponema pallidum (Syphilis) Screening [place] (252212) or Rapid Plasma Reagin (RPR) Test With Reflex to Quantitative RPR and Confirmatory Treponema pallidum Antibodies (117578). Performed at: [facility] [email or web address] [id number] Irrigationist: Andrew Harris PhD, Phone: [phone] Performing Lab: see note [facility] LB HBsAg Screen Reviewed date:07/23/2024 08:22:00 AM Interpretation: Performing Lab: Notes/Report: [facility] , HBsAg Screen Negative Negative Performed at: [facility] [email or web address], [place] [id number] Irrigationist: Andrew Harris PhD, Phone: [phone] Performing Lab: see note - [facility] LB Urine Culture, Routine Reviewed date:07/23/2024 08:22:00 AM Interpretation: Performing Lab: Notes/Report: [facility] , Urine Culture, Routine See Below For Report Urine Culture, Routine Urine Culture, Routine Mixed urogenital tami Urine Culture, Routine Urine Culture, Routine 10,000-25,000 colony forming units per mL Urine Culture, Routine Urine Culture, Routine Performed at: [facility] Urine Culture, Routine Urine Culture, Routine [address] [place] [id number] Urine Culture, Routine Urine Culture, Routine Irrigationist: Andrew Harris PhD, Phone: [phone] Urine Culture, Routine Performing Lab: see note - [facility] LB SEE REPORT - Casino Enforcement Agent Id information not found for OBX-specific animation producer legend Box Test Reviewed date:07/23/2024 08:22:00 AM Interpretation: Performing Lab: Notes/Report: [facility] , BOX Test Sent Out [place] BOX Test Reference Lab [facility] BOX Test Date Sent 07/21/24 Performing Lab: see note [facility] LB CBC AUTO DIFF Reviewed date:08/03/2024 08:30:13 AM Interpretation: Performing Lab: Notes/Report: [facility] , White Blood Count 11.1 4.0-11.0 [...] Performing Lab: see note ML - [facility] LB PREG QUANT HCG Reviewed date:08/03/2024 08:30:13 AM Interpretation: Performing Lab: Notes/Report: [facility] , HCG Quantitative 1656 5-50 0.2-1 WEEK 50-500 1-2 WEEKS 100-5,000 2-3 WEEKS 500-10,000 3-4 WEEKS 1,000-50,000 4-5 WEEKS 10,000-100,000 5-6 WEEKS 15,000-200,000 6-8 WEEKS 10,000-100,000 2-3 MONTHS Performing Lab: see note ML - [facility] LB PROF 14(COMP METB) Reviewed date:08/03/2024 08:30:13 AM Interpretation: Performing Lab: Notes/Report: [facility] , Sodium 140 136-145 mmol/L Potassium [...] Performing Lab: see note ML - [facility] US OB transvaginal Reviewed date:08/03/2024 08:30:13 AM Interpretation: Performing Lab: Notes/Report: Source Facility: [place] [address] Ultrasound Report Signed Patient: VIMAL FUNES MR#: [id number] : 2000 Acct:[id number] Age/Sex: 24 / F ADM Date: 08/02/24 Loc: ER Attending Dr: Ordering Physician: Kishan Cosby Date of Service: 08/02/24 Procedure(s): US OB transvaginal Accession Number(s): [id number] cc: JENNIFER SEE ; Kishan Cosby [place] [address] Patient Name: VIMAL FUNES MRN: [id number] date: 2000 Sex: F Assigned Patient Location: ER Current Patient Location: ER Accession/Order Number: [id number] Exam Date: 08/02/2024 19:17 Report Date: 08/02/2024 21:24 At the request of: KISHAN COSYB Procedure: US OB transvaginal EXAM: US OB [...] M.D. Signed By: 08/02/242126 DD/ 23 TD/TT: Table Worker: CBC AUTO DIFF Reviewed date:08/10/2024 08:58:56 AM Interpretation: Performing Lab: Notes/Report: [facility] , White Blood Count 8.9 4.0-11.0 [...] Performing Lab: see note ML - [facility] LB PREG QUANT HCG Reviewed date:08/10/2024 08:58:56 AM Interpretation: Performing Lab: Notes/Report: [facility] , HCG Quantitative 240 5-50 0.2-1 WEEK 50-500 1-2 WEEKS 100-5,000 2-3 WEEKS 500-10,000 3-4 WEEKS 1,000-50,000 4-5 WEEKS 10,000-100,000 5-6 WEEKS 15,000-200,000 6-8 WEEKS 10,000-100,000 2-3 MONTHS Performing Lab: see note ML - [facility] LB IGP,Aptima HPV,Age Gdln Reviewed date:02/25/2025 03:13:18 PM Interpretation: Performing Lab: Notes/Report: SPATULA-ALONE ENDOCERV[facility] , Age Gdln ACOG Testing Note . TESTS RESULT FLAG UNITS REF RANGE LAB Clinician Provided Cytology Information Source.............Endo cervix No. of containers..01 ThinPrep Vial Age Algo ACOG Yris... -24 10 FLAG LEGEND: L-Low Normal,H-High Normal,LL-Alert Low,HH-Alert High <-Panic Low,>-Panic High,A-Abnormal,AA-Crit ical Abnormal Performed at: 01 =G [facility] [place] [address] Jenise Byrne MD, IGP, rfx Aptima HPV ASCU Note . TESTS RESULT FLAG UNITS REF RANGE LAB DIAGNOSIS: 02 NEGATIVE FOR INTRAEPITHELIAL LESION OR MALIGNANCY. Specimen adequacy: 02 Satisfactory for evaluation. Endocervical and/or squamous metaplastic cells (endocervical component) are present. Performed by: Hussein Alvarez, Campaign Management Senior Manager ([facility]) . 02 Note: Note 02 [...] ical Abnormal Performed at: 02 [address] [facility] [address] [address] Jenise Byrne MD, Performed at: =G - [facility] [address] [id number] Irrigationist: Jenise Byrne MD, Phone: [phone] Performed at: - [facility] [id number] Irrigationist: Jenise Byrne MD, Phone: [phone] Performing Lab: see note - [facility] LB CBC AUTO DIFF Reviewed date:04/29/2025 09:37:12 AM Interpretation: Performing Lab: Notes/Report: [facility] , White Blood Count 12.5 4.0-11.0 [...] Performing Lab: see note ML - [facility] LB Glucose 1 Hour Reviewed date:04/29/2025 09:37:12 AM Interpretation: Performing Lab: Notes/Report: [facility] , Glucose 1 Hour 171 <130 mg/dL Performing Lab: see note ML - [facility] LB BUN Reviewed date:05/06/2025 10:03:33 AM Interpretation: Performing Lab: Notes/Report: [facility] , Blood Urea Nitrogen 8.0 7.0-18.0 mg/dL Performing Lab: see note ML - [facility] LB CBC AUTO DIFF Reviewed date:05/06/2025 10:03:33 AM Interpretation: Performing Lab: Notes/Report: [facility] , White Blood Count 12.5 4.0-11.0 [...] Performing Lab: see note ML - [facility] LB CREATININE Reviewed date:05/06/2025 10:03:33 AM Interpretation: Performing Lab: Notes/Report: [facility] , Creatinine 0.37 0.55-1.02 mg/dL Estimated GFR ( Ashley >60 >=60 mL/min/1.73m 2 Estimated GFR (Non- Hortencia >60 >=60 mL/min/1.73m 2 Performing Lab: see note ML - [facility] LB LDH Reviewed date:05/06/2025 10:03:33 AM Interpretation: Performing Lab: Notes/Report: [facility] , Lactate Dehydrogenase 163 81-234 U/L Performing Lab: see note ML - [facility] LB PTT Reviewed date:05/06/2025 10:03:33 AM Interpretation: Performing Lab: Notes/Report: [facility] , Partial Thromboplastin Time 25.7 22.3-36.2 sec Performing Lab: see note ML - [facility] LB SGOT Reviewed date:05/06/2025 10:03:33 AM Interpretation: Performing Lab: Notes/Report: [facility] , Aspartate Amino Transferase 23 15-37 U/L Performing Lab: see note ML - [facility] LB URIC ACID SERUM Reviewed date:05/06/2025 10:03:33 AM Interpretation: Performing Lab: Notes/Report: [facility] , Uric Acid 3.7 2.6-6.0 mg/dL Performing Lab: see note ML - [facility] Prothrombin Time INR Reviewed date:05/06/2025 10:03:33 AM Interpretation: Performing Lab: Notes/Report: [facility] , Prothrombin Time 10.1 9.0-11.6 sec INR 0.95 DESIRED INR: 2.0-3.0 CONDITIONS NOT LISTED BELOW 2.5-3.5 FOR PROSTHETIC HEART VALVE REPLACEMENT 2.5-3.5 RECURRENT THROMBOSIS Performing Lab: see note ML - [facility] LB Glucose Tolerance 3 Hour Reviewed date:05/06/2025 10:03:33 AM Interpretation: Performing Lab: Notes/Report: [facility] , Glucose Tolerance 3 Hour GLU FAST 108H (<95) Col: 05/04/25 0723 GLU 1HR 234H (<180) Col: 05/04/25 0826 GLU 2HR 186H (<155) Col: 05/04/25 0927 GLU 3HR 133 (<140) Col: 05/04/25 1028 Performing Lab: see note ML - [facility] US OB BPP w non-stress Reviewed date:05/06/2025 10:03:33 AM Interpretation: Performing Lab: Notes/Report: Source Facility: [facility] [place] [address] [place] [address] Ultrasound Report Signed Patient: VIMAL FUNES MR#: [id number] : 2000 Acct:[id number] Age/Sex: 25 / F ADM Date: 05/04/25 Loc: [facility] 250-[address]: Rossana Leach Ordering Physician: Rossana Leach Date of Service: 05/04/25 Procedure(s): US OB BPP w non-stress Accession Number(s): [id number] cc: Rossana Leach; JENNIFER SEE [place] [address] Patient Name: VIMAL FUNES MRN: [id number] date: 2000 Sex: F Assigned Patient Location: [facility] Current Patient Location: [facility] Accession/Order Number: [id number] Exam Date: 05/04/2025 12:08 Report Date: 05/04/2025 12:09 At the request of: ROSSANA LEACH Procedure: US OB BPP w non-stress Biophysical profile. Reason for exam: Gestational diabetes COMPARISON: None TECHNIQUE: Transabdominal imaging of the gravid uterus was obtained. FINDINGS: The holistic health practitioner reports a BPP of 8 out of 8. DANYA is normal at 12.4 cm. heart rate 150 bpm. US/US OB BPP w non-stress IMPRESSION: BPP 8 out of 8. Impression dictated by: Bulmaro Arias Jr., D.O. 05/04/2025 12:09 PM Dictation Location: [place] [address] Electronically authenticated by: [id number] Y Date: 05/04/2025 12:09 Dictated By: Bulmaro Arias M.D. Signed By: 05/04/25 1212 DD/ 1209 TD/TT: Table Worker: OB growth Reviewed date:05/06/2025 10:03:33 AM Interpretation: Performing Lab: Notes/Report: Source Facility: [place] [address] [place] [address] Ultrasound Report Signed Patient: VIMAL FUNES MR#: [id number] : 2000 Acct:[id number] Age/Sex: 25 / F ADM Date: 05/04/25 Loc: [facility] 250-[address]: Rossana Leach Ordering Physician: Rossana Leach Date of Service: 05/04/25 Procedure(s): US OB growth Accession Number(s): [id number] cc: Rossana Leach; JENNIFER SEE [place] [address] Patient Name: VIMAL FUNES MRN: [id number] date: 2000 Sex: F Assigned Patient Location: [facility] Current Patient Location: [facility] Accession/Order Number: [id number] Exam Date: 05/04/2025 12:06 Report Date: 05/04/2025 [...] Jr., D.O. 05/04/2025 12:08 PM Dictation Location: Location Electronically authenticated by: [id number] Y Date: 05/04/2025 12:08 Dictated By: Bulmaro Arias M.D. Signed By: 05/04/25 1211 DD/ 1208 TD/TT: Table Worker: US OB BPP w non-stress Reviewed date:05/13/2025 12:03:41 PM Interpretation: Performing Lab: Notes/Report: Source Facility: [place] [address] Ultrasound Report Signed Patient: VIMAL FUNES MR#: [id number] : 2000 Acct:[id number] Age/Sex: 25 / F ADM Date: 05/11/25 Loc: [facility] 253-[address]: Rossana Leach Ordering Physician: Rossana Leach Date of Service: 05/11/25 Procedure(s): US OB BPP w non-stress Accession Number(s): [id number] cc: Rossana Leach; JENNIFER SEE [address] [address] Patient Name: VIMAL FUNES MRN: [id number] date: 2000 Sex: F Assigned Patient Location: [facility] Current Patient Location: [facility] Accession/Order Number: [id number] Exam Date: 05/11/2025 12:01 Report Date: 05/11/2025 12:02 At the request of: ROSSANA LEACH Procedure: US OB BPP w non-stress Biophysical profile. Reason for exam: Gestational diabetes COMPARISON: 05/04/2025 TECHNIQUE: Transabdominal imaging of the gravid uterus was obtained. FINDINGS: The holistic health practitioner reports a BPP of 8 out of 8. DANYA is normal at 11.9 cm. heart rate 138 bpm. US/US OB BPP w non-stress IMPRESSION: BPP 8 out of 8. Impression dictated by: Bulmaro Arias Jr., D.O. 05/11/2025 12:02 PM Dictation Location: [place] [address] Electronically authenticated by: [id number] Y Date: 05/11/2025 12:02 Dictated By: Bulmaro Arias M.D. Signed By: 05/11/25 1204 DD/ 1202 TD/TT: Table Worker: [place] Reviewed date:05/20/2025 11:23:08 AM Interpretation: Performing Lab: Notes/Report: [facility] , Blood Urea Nitrogen 9.0 7.0-18.0 mg/dL Performing Lab: see note ML - [facility] LB CREATININE Reviewed date:05/20/2025 11:23:08 AM Interpretation: Performing Lab: Notes/Report: [facility] , Creatinine 0.38 0.55-1.02 mg/dL Estimated GFR ( Ashley >60 >=60 mL/min/1.73m 2 Estimated GFR (Non- Hortencia >60 >=60 mL/min/1.73m 2 Performing Lab: see note - [facility] LB PTT Reviewed date:05/20/2025 11:23:08 AM Interpretation: Performing Lab: Notes/Report: [facility] , Partial Thromboplastin Time 25.6 22.3-36.2 sec Performing Lab: see note - [facility] LB SGOT Reviewed date:05/20/2025 11:23:08 AM Interpretation: Performing Lab: Notes/Report: [facility] , Aspartate Amino Transferase 18 15-37 U/L Performing Lab: see note - [facility] URIC ACID SERUM Reviewed date:05/20/2025 11:23:08 AM Interpretation: Performing Lab: Notes/Report: [facility] , Uric Acid 4.0 2.6-6.0 mg/dL Performing Lab: see note - [facility] Prothrombin Time INR Reviewed date:05/20/2025 11:23:08 AM Interpretation: Performing Lab: Notes/Report: [facility] , Prothrombin Time 10.2 9.0-11.6 sec INR 0.96 DESIRED INR: 2.0-3.0 CONDITIONS NOT LISTED BELOW 2.5-3.5 FOR PROSTHETIC HEART VALVE REPLACEMENT 2.5-3.5 RECURRENT THROMBOSIS Performing Lab: see note - [facility] US OB BPP w non-stress Reviewed date:05/20/2025 11:23:08 AM Interpretation: Performing Lab: Notes/Report: Source Facility: [facility] [place] [address] [place] [address] Ultrasound Report Signed Patient: VIMAL FUNES MR#: [id number] : 2000 Acct:[id number] Age/Sex: 25 / F ADM Date: 05/18/25 Loc: US Attending Dr: Rossana Leach Ordering Physician: Rossana Leach Date of Service: 05/18/25 Procedure(s): US OB BPP w non-stress Accession Number(s): [id number] cc: Rossana Leach; JENNIFER SEE [place] [address] Patient Name: VIMAL FUNES MRN: [id number] date: 2000 Sex: F Assigned Patient Location: [facility] Current Patient Location: Accession/Order Number: [id number] Exam Date: 05/18/2025 11:16 Report Date: 05/18/2025 [...] 05/18/2025 5:08 PM Dictation Location: [place] [address] Electronically authenticated by: [id number] Y Date: 05/18/2025 17:08 Dictated By: Heriberto Acharya M.D. Signed By: 05/18/252016 DD/ 07 TD/TT: Table Worker: US OB BPP w non-stress Reviewed date:05/28/2025 11:03:16 AM Interpretation: Performing Lab: Notes/Report: Source Facility: [place] [address] Ultrasound Report Signed Patient: VIMAL FUNES MR#: [id number] : 2000 Acct:[id number] Age/Sex: 25 / F ADM Date: 05/25/25 Loc: US Attending Dr: Rossana Leach Ordering Physician: Rossana Leach Date of Service: 05/25/25 Procedure(s): US OB BPP w non-stress Accession Number(s): [id number] cc: Rossana Leach; JENNIFER SEE [place] [address] Patient Name: VIMAL FUNES MRN: [id number] date: 2000 Sex: F Assigned Patient Location: [facility] Current Patient Location: Accession/Order Number: [id number] Exam Date: 05/25/2025 08:21 Report Date: 05/25/2025 [...] 05/25/2025 11:13 AM Dictation Location: [place] [address] Electronically authenticated by: [id number] Y Date: 05/25/2025 11:13 Dictated By: Heriberto Acharya M.D. Signed By: 05/25/25 1116 DD/ 1113 TD/TT: Table Worker: US OB BPP w non-stress Reviewed date:06/03/2025 09:38:37 AM Interpretation: Performing Lab: Notes/Report: Source Facility: [facility] [place] [address] Ultrasound Report Signed Patient: VIMAL FUNES MR#: [id number] : 2000 Acct:[id number] Age/Sex: 25 / F ADM Date: 06/01/25 Loc: US Attending Dr: Rossana Leach Ordering Physician: Rossana Leach Date of Service: 06/01/25 Procedure(s): US OB BPP w non-stress Accession Number(s): [id number] cc: Rossana Leach; JENNIFER SEE [place] [address] Patient Name: VIMAL FUNES MRN: [id number] date: 2000 Sex: F Assigned Patient Location: Current Patient Location: Accession/Order Number: [id number] Exam Date: 06/01/2025 10:59 Report Date: 06/01/2025 12:03 At the request of: ROSSANA LEACH Procedure: US OB BPP w non-stress Biophysical profile. Reason for exam: Gestational diabetes COMPARISON: 05/25/2025 TECHNIQUE: Transabdominal imaging of the gravid uterus was obtained. FINDINGS: The holistic health practitioner reports a BPP of 8 out of 8. DANYA is normal at 11.0 cm. Cardiac activity was visualized by the holistic health practitioner per tech note. No heart rate was documented. US/US OB BPP w non-stress IMPRESSION: BPP 8 out of 8. Impression dictated by: Bulmaro Arias Jr., D.O. 06/01/2025 12:03 PM Dictation Location: [place] [address] Electronically authenticated by: [id number] Y Date: 06/01/2025 12:03 Dictated By: Bulmaro Arias M.D. Signed By: 06/01/25 1206 DD/ 1203 TD/TT: Table Worker: US OB BPP w non-stress Reviewed date:06/10/2025 10:40:51 AM Interpretation: Performing Lab: Notes/Report: Source Facility: [place] [address] Ultrasound Report Signed Patient: VIMAL FUNES MR#: [id number] : 2000 Acct:[id number] Age/Sex: 25 / F ADM Date: 06/08/25 Loc: US Attending Dr: Rossana Leach Ordering Physician: Rossana Leach Date of Service: 06/08/25 Procedure(s): US OB BPP w non-stress Accession Number(s): [id number] cc: Rossana Leach; JENNIFER SEE [place] [address] Patient Name: VIMAL FUNES MRN: [facility]:[id number] date: 2000 Sex: F Assigned Patient Location: [facility] Current Patient Location: Accession/Order Number: [id number] Exam Date: 06/08/2025 11:01 Report Date: 06/08/2025 [...] 06/08/2025 12:10 PM Dictation Location: [place] [address] Electronically authenticated by: [id number] Y Date: 06/08/2025 12:10 Dictated By: Shivam Knapp D.O. Signed By: 06/08/25 1213 DD/ 1210 TD/TT: Table Worker: LDH Reviewed date:05/20/2025 11:23:08 AM Interpretation: Performing Lab: Notes/Report: [facility] , Lactate Dehydrogenase 147 81-234 U/L Performing Lab: see note ML - [facility] LB CBC AUTO DIFF Reviewed date:05/20/2025 11:23:08 AM Interpretation: Performing Lab: Notes/Report: [facility] , White Blood Count [...] 3/uL Performing Lab: see note - [facility] Total Protein 24 Hour Urine Reviewed date:05/07/2025 09:01:34 AM Interpretation: Performing Lab: Notes/Report: [facility] , Total Protein Urine Random <6.0 <=11.9 mg/dL Total Volume 24 Hour Urine 3700 Performing Lab: see note - [facility] US OB incomplete anatomy Reviewed date:03/25/2025 09:01:39 AM Interpretation: Performing Lab: Notes/Report: Source Facility: [facility] [place] [address] [place] [address] Ultrasound Report Signed Patient: VIMAL FUNES MR#: [id number] : 2000 Acct:[id number] Age/Sex: 24 / F ADM Date: 03/23/25 Loc: US Attending Dr: Mackenzie Rodriguez D.O. Ordering Physician: Mackenzie Rodriguez D.O. Date of Service: 03/23/25 Procedure(s): US OB incomplete anatomy Accession Number(s): [id number] cc: JENNIFER SEE ; Mackenzie Rodriguez D.O. [place] [address] Patient Name: VIMAL FUNES MRN: [id number] date: 2000 Sex: F Assigned Patient Location: Current Patient Location: US Accession/Order Number: [id number] Exam Date: 03/25/2025 08:23 Report Date: 03/25/2025 [...] EXTREMITIES AND FACIAL FEATURES. Impression dictated by: Megahna Brown M.D. 03/25/2025 8:25 AM Dictation Location: [place] [address] Electronically authenticated by: [id number] Y Date: 03/25/2025 08:25 Dictated By: Meghana Brown M.D. Signed By: 03/25/25 0827 DD/ TD/TT: Table Worker: US OB anatomy Reviewed date:03/14/2025 10:39:54 AM Interpretation: Performing Lab: Notes/Report: Source Facility: [place] [address] Ultrasound Report Signed Patient: VIMAL FUNES MR#: [id number] : 2000 Acct:[id number] Age/Sex: 24 / F ADM Date: 03/08/25 Loc: US Attending Dr: Mackenzie Rodriguez D.O. Ordering Physician: Mackenzie Rodriguez D.O. Date of Service: 03/08/25 Procedure(s): US OB anatomy Accession Number(s): [id number] cc: JENNIFER SEE ; Mackenzie Rodriguez D.O. [place] [id number] Patient Name: VIMAL FUNES MRN: [facility]:[id number] date: 2000 Sex: F Assigned Patient Location: US Current Patient Location: US Accession/Order Number: [id number] Exam Date: 03/08/2025 20:31 Report Date: 03/08/2025 [...] Knapp M.D. 03/08/2025 8:36 PM Dictation Location: [email or web address] Electronically authenticated by: [id number] Y Date: 03/08/2025 20:36 Dictated By: Shivam Knapp D.O. Signed By: 03/08/252037 DD/ 35 TD/TT: Table Worker: US OB cervical length Reviewed date:03/14/2025 10:39:54 AM Interpretation: Performing Lab: Notes/Report: Source Facility: [place] [address] Ultrasound Report Signed Patient: VIMAL FUNES MR#: [id number] : 2000 Acct:[id number] Age/Sex: 24 / F ADM Date: 03/08/25 Loc: US Attending Dr: Mackenzie Rodriguez D.O. Ordering Physician: Mackenzie Rodriguez D.O. Date of Service: 03/08/25 Procedure(s): US OB cervical length Accession Number(s): [id number] cc: JENNIFER SEE ; Mackenzie Rodriguez D.O. [place] [address] Patient Name: VIMAL FUNES MRN: [id number] date: 2000 Sex: F Assigned Patient Location: Current Patient Location: Accession/Order Number: [id number] Exam Date: 03/08/2025 20:31 Report Date: 03/08/2025 [...] M.D. 03/08/2025 8:36 PM Dictation Location[facility] Electronically authenticated by: [id number] Y Date: 03/08/2025 20:36 Dictated By: Shivam Knapp D.O. Signed By: 03/08/252037 DD/ 35 TD/TT: Table Worker: Box Test Reviewed date:01/07/2025 01:05:16 PM Interpretation: Performing Lab: Notes/Report: [facility] , BOX Test Sent Out [employer] BOX Test Reference Lab [employer] BOX Test Date Sent 01-05-25 Performing Lab: see note [facility] LB Urine Culture, Routine Reviewed date:01/07/2025 01:05:16 PM Interpretation: Performing Lab: Notes/Report: [facility] , Urine Culture, Routine See Below For Report Urine Culture, Routine Urine Culture, Routine Mixed urogenital tami Urine Culture, Routine Urine Culture, Routine 50,000-100,000 colony forming units per mL Urine Culture, Routine Urine Culture, Routine Performed at: [facility] Urine Culture, Routine Urine Culture, Routine [address] [place] [phone] Urine Culture, Routine Urine Culture, Routine Irrigationist: Andrew Harris PhD, Phone: [phone] Urine Culture, Routine Performing Lab: see note LC - [facility] LB SEE REPORT - Casino Enforcement Agent Id information not found for OBX-specific animation producer legend HBsAg Screen Reviewed date:01/07/2025 01:05:16 PM Interpretation: Performing Lab: Notes/Report: [facility] , HBsAg Screen Negative Negative Performed at: [address] [id number] Irrigationist: Andrew Harris PhD, Phone: [phone] Performing Lab: see note LC - [facility] LB HCV Antibody RFX to Quant PC R Reviewed date:01/07/2025 01:05:16 PM Interpretation: Performing Lab: Notes/Report: [facility] , HCV Ab Non Reactive Non Reactive Interpretation: Comment . Not infected with HCV unless early or acute infection is suspected (which may be delayed in an immunocompromised individual), or other evidence exists to indicate HCV infection. Performed at: [address] [id number] Irrigationist: Andrew Harris PhD, Phone: [phone] Performing Lab: see note [facility] Rapid Plasma Reagin, [...] utilized, such as Treponema pallidum (Syphilis) Screening [place] (596249) or Rapid Plasma Reagin (RPR) Test With Reflex to Quantitative RPR and Confirmatory Treponema pallidum Antibodies (965173). Performed at: [address] [id number] Irrigationist: Andrew Harris PhD, Phone: [phone] Performing Lab: see note [facility] LB HIV Ab/p24 Ag with Reflex Reviewed date:01/07/2025 01:05:16 PM Interpretation: Performing Lab: Notes/Report: [facility] , HIV Ab/p24 Ag Screen Non Reactive Non Reactive HIV-1/HIV-2 antibodies and HIV-1 p24 antigen were NOT detected. There is no laboratory evidence of HIV infection. HIV Negative Performed at: [address] [id number] Irrigationist: Andrew Harris PhD, Phone: [phone] Performing Lab: see note [facility] LB Type and Screen Reviewed date:01/07/2025 01:05:16 PM Interpretation: Performing Lab: Notes/Report: [facility] , Blood Type A Positive Antibody Screen NEGATIVE RUBELLA AB IGG Reviewed date:01/07/2025 01:05:16 PM Interpretation: Performing Lab: Notes/Report: [facility] , Rubella Antibodies, IgG 1.57 Immune >0.99 inde x Non-immune <0.90 Equivocal 0.90 - 0.99 Immune >0.99 Performed at: - [address] [id number] Irrigationist: Andrew Harris PhD, Phone: [phone] Performing Lab: see note - [facility] LB GLYCOHEMOGLOBIN A1C Reviewed date:01/07/2025 01:05:16 PM Interpretation: Performing Lab: Notes/Report: [facility] , Glycohemoglobin A1C 5.0 4.5-6.2 % ADA RECOMMENDED LIMIT 4.0 - 6.0 ADA THERAPEUTIC TARGET < 7.0 ACTION SUGGESTED > 7.0 Estimated Average Glucose 97 Performing Lab: see note ML - [facility] DRUG SCREEN RAPID (URINE) Reviewed date:01/07/2025 01:05:16 PM Interpretation: Performing Lab: Notes/Report: [facility] , Cannabinoid Screen Urine NEGATIVE NEGATIVE [...] ng/mL Performing Lab: see note ML - [facility] LB CBC AUTO DIFF Reviewed date:01/07/2025 01:05:16 PM Interpretation: Performing Lab: Notes/Report: [facility] , White Blood Count 9.2 4.0-11.0 [...] Performing Lab: see note ML - [facility] PREG QUANT HCG Reviewed date:11/22/2024 08:59:16 AM Interpretation: Performing Lab: Notes/Report: [facility] Quantitative 01618 5-50 0.2-1 WEEK 50-500 1-2 WEEKS 100-5,000 2-3 WEEKS 500-10,000 3-4 WEEKS 1,000-50,000 4-5 WEEKS 10,000-100,000 5-6 WEEKS 15,000-200,000 6-8 WEEKS 10,000-100,000 2-3 MONTHS Performing Lab: see note ML - [facility] PREG QUANT HCG Reviewed date:11/20/2024 01:38:35 PM Interpretation: Performing Lab: Notes/Report: [facility] Quantitative 6254 5-50 0.2-1 WEEK 50-500 1-2 WEEKS 100-5,000 2-3 WEEKS 500-10,000 3-4 WEEKS 1,000-50,000 4-5 WEEKS 10,000-100,000 5-6 WEEKS 15,000-200,000 6-8 WEEKS 10,000-100,000 2-3 MONTHS Performing Lab: see note ML - [facility] PREG QUANT HCG Reviewed date:08/20/2024 11:36:34 AM Interpretation: Performing Lab: Notes/Report: [facility] , HCG Quantitative 6 5-50 0.2-1 WEEK 50-500 1-2 WEEKS 100-5,000 2-3 WEEKS 500-10,000 3-4 WEEKS 1,000-50,000 4-5 WEEKS 10,000-100,000 5-6 WEEKS 15,000-200,000 6-8 WEEKS 10,000-100,000 2-3 MONTHS Performing Lab: see note ML - [facility] US OB transvaginal Reviewed date:08/10/2024 08:58:56 AM Interpretation: Performing Lab: Notes/Report: Source Facility: [place] [address] Ultrasound Report Signed Patient: VIMAL FUNES MR#: [id number] : 2000 Acct:[id number] Age/Sex: 24 / F ADM Date: 08/10/24 Loc: SURGOUT Attending Dr: Mackenzie Rodriguez D.O. Ordering Physician: Mackenzie Rodriguez D.O. Date of Service: 08/10/24 Procedure(s): US OB transvaginal Accession Number(s): [id number] cc: JENNIFER SEE ; Mackenzie Rodriguez D.O. [place] [address] Patient Name: VIMAL FUNES MRN: [id number] date: 2000 Sex: F Assigned [facility] Current Patient Location: [facility] Accession/Order Number: [id number] Exam Date: 08/10/2024 08:10 Report Date: 08/10/2024 [...] Herrera M.D. Signed By: 08/10/2447 DD/ TD/TT: Table Worker: HCV Antibody RFX to Quant PC R Reviewed date:07/23/2024 08:22:00 AM Interpretation: Performing Lab: Notes/Report: [facility] , HCV Ab Non Reactive Non Reactive Interpretation: Comment . Not infected with HCV unless early or acute infection is suspected (which may be delayed in an immunocompromised individual), or other evidence exists to indicate HCV infection. Performing Lab: see note - [facility] LB HIV Ab/p24 Ag with Reflex Reviewed date:07/23/2024 08:22:00 AM Interpretation: Performing Lab: Notes/Report: [facility] , HIV Ab/p24 Ag Screen Non Reactive Non Reactive HIV-1/HIV-2 antibodies and HIV-1 p24 antigen were NOT detected. There is no laboratory evidence of HIV infection. HIV Negative Performed at: [address] [id number] Irrigationist: Andrew Harris PhD, Phone: [phone] Performing Lab: see note LC - [facility] LB RUBELLA AB IGG Reviewed date:07/23/2024 08:22:00 AM Interpretation: Performing Lab: Notes/Report: [facility] , Rubella Antibodies, IgG 1.57 Immune >0.99 inde x Non-immune <0.90 Equivocal 0.90 - 0.99 Immune >0.99 Performed at: [address] [id number] Irrigationist: Andrew Harris PhD, Phone: [phone] Performing Lab: see note - [facility] LB GLYCOHEMOGLOBIN A1C Reviewed date:07/23/2024 08:22:00 AM Interpretation: Performing Lab: Notes/Report: [facility] , Glycohemoglobin A1C 4.9 4.5-6.2 % ADA RECOMMENDED LIMIT 4.0 - 6.0 ADA THERAPEUTIC TARGET < 7.0 ACTION SUGGESTED > 7.0 Estimated Average Glucose 94 Performing Lab: see note ML - [facility] LB DRUG SCREEN RAPID (URINE) Reviewed date:07/23/2024 08:22:00 AM Interpretation: Performing Lab: Notes/Report: REEFLEX IF POSITIVE [facility] , Cannabinoid Screen Urine NEGATIVE NEGATIVE [...] ng/mL Performing Lab: see note ML - [facility] LB CBC AUTO DIFF Reviewed date:07/23/2024 08:22:00 AM Interpretation: Performing Lab: Notes/Report: [facility] , White Blood Count 10.6 4.0-11.0 [...] Performing Lab: see note ML - [facility] US OB BPP w non-stress Reviewed date:06/17/2025 11:37:19 AM Interpretation: Performing Lab: Notes/Report: Source Facility: [place] [address] Ultrasound Report Signed Patient: VIMAL FUNES MR#: [id number] : 2000 Acct:[id number] Age/Sex: 25 / F ADM Date: 06/15/25 Loc: [facility] 251-[address]: Rossana Leach Ordering Physician: Rossana Leach Date of Service: 06/15/25 Procedure(s): US OB BPP w non-stress Accession Number(s): [id number] cc: Rossana Leach; JENNIFER SEE [place] [id number] Patient Name: VIMAL FUNES MRN: [id number] date: 2000 Sex: F Assigned Patient Location: US Current Patient Location: US Accession/Order Number: [id number] Exam Date: 06/15/2025 11:07 Report Date: 06/15/2025 12:51 At the request of: ROSSANA LEACH Procedure: US OB BPP w non-stress Biophysical profile. Reason for exam: Gestational diabetes COMPARISON: 06/08/2025 TECHNIQUE: Transabdominal imaging of the gravid uterus was obtained. FINDINGS: The holistic health practitioner reports a BPP of 8 out of 8. DANYA is normal at 11.0 cm. heart rate 136 bpm. US/US OB BPP w non-stress IMPRESSION: BPP 8 out of 8. Impression dictated by: Amadou Carias M.D. 06/15/2025 12:51 PM Dictation Location: [place] [address] Electronically authenticated by: [id number] Y Date: 06/15/2025 12:51 Dictated By: Amadou Carias M.D. Signed By: 06/15/25 1254 DD/ 1251 TD/TT: Table Worker: Total Protein 24 Hour Urine Reviewed date:05/21/2025 08:48:02 AM Interpretation: Performing Lab: Notes/Report: [facility] , Total Protein Urine Random 6.7 <=11.9 mg/dL Total Volume 24 Hour Urine 2900 Total Protein 24 Hour Urine 194.3 <=149.1 mg/24hr Performing Lab: see note ML - [facility] LB Reason For Referral No Information [...] ACCESS PPO PLUS LOCAL PLAN [address] [place] [address] [id number] Vimal Funes Self - patient is the insured [employer] [place] [employer] [address] [place] [address] [phone] [id number] Vimal Funes Self - patient is the insured Medical (General) History Medical History History ICD Code lead poisoning Surgical History Surgery Date(Month/Year) ear tubes
--- OUTSIDE RECORDS SUMMARY | 2025-06-22 10:53 | XMS_ITS | Clinical Summary ---
Author Organization [facility] tem Address [id number] [address] [place] [address] Care Team Providers Care Oracle Brm Developer Name Role Phone Unavailable Primary Care [...] Encounters Date Type Department Care Team Description 06/20/2025 Orders Only Maternal- Medicine at [facility] [address] [place] [phone] Marii Yoo, RN Poor growth affecting management of mother in third trimester, single or unspecified fetus (Primary Dx) 06/18/2025 3:28 PM EDT - 06/18/2025 11:59 PM EDT Hospital Encounter [facility] - [facility] US Imaging [address] [place] [phone] Intrauterine growth restriction affecting care of mother, unspecified trimester, not applicable or unspecified fetus Discharge Disposition: Home 06/18/2025 Travel 06/11/2025 7:48 AM EDT - 06/11/2025 11:59 PM EDT Hospital Encounter [facility] - [facility] Imaging [address] [place] [address] Poor growth affecting management of mother in third trimester, single or unspecified fetus; Gestational diabetes mellitus (GDM) in third trimester, gestational diabetes method of control unspecified Discharge Disposition: Home 06/11/2025 Travel 06/09/2025 Travel 06/05/2025 Telephone Maternal- Medicine at [facility] [address] [place] [address] 06/04/2025 2:00 PM EDT Telemedicine Maternal- Medicine at [facility] [address] [place] [address] Chris Navarro MD Poor growth affecting management of mother in third trimester, single or unspecified fetus (Primary Dx) 06/04/2025 12:41 PM EDT - 06/04/2025 11:59 PM EDT Hospital Encounter [facility] [address] [place] [address] Mackenzie Rodriguez, Screening, , for anatomic survey Discharge Disposition: Home 06/04/2025 Orders Only Maternal- Medicine at [facility] [address] [place] [address] Marii Yoo, RN Poor growth affecting management of mother in third trimester, single or unspecified fetus (Primary Dx); Gestational diabetes mellitus (GDM) in third trimester, gestational diabetes method of control unspecified 06/04/2025 Travel 05/31/2025 Orders Only Maternal- Medicine at [facility] [address] [place] [address] Ref Prov, Not In System 05/31/2025 Abstract Maternal- Medicine at [facility] [address] [place] [address] External, Scanning Provider 05/28/2025 Telephone Maternal- Medicine at [facility] [address] [place] [phone] Chante Muse LD 05/21/2025 Telephone Maternal- Medicine at [facility] [address] [place] [phone] Chante Muse LD 05/13/2025 1:30 PM EDT Support Visit Maternal- Medicine at [address] [phone] Marjorie Rico RN Xenia Rayo RD Gestational diabetes mellitus (GDM) in third trimester, gestational diabetes method of control unspecified 05/13/2025 Travel 05/10/2025 Abstract Maternal- Medicine at [address] [phone] External, Scanning Provider from Last 3 Months [...] 06/24/2025 2:15 PM EDT Appointment Maternal Medicine [facility] [address] [place] [address] 07/02/2025 3:30 PM EDT Appointment [facility] Imaging [address] [place] [address] Health Maintenance Due Date Last Done Comments Chlamydia Screening 2001 Depression Screening 2013 Tobacco Screening 2013 Adult BMI Screening 2019 DTaP,Tdap and Td Vaccines (7 - Td or Tdap) 05/01/2024 05/01/2014, 06/01/2006, 05/19/2005, Additional history exists Influenza Vaccine 05/27/2025 08/28/2003, 07/26/2003 Pap Smear 02/21/2028 02/20/2025 Medical Devices Not on file Procedures Procedure Name Priority Date/Time Associated Diagnosis Comments [facility] AMNIOTIC FLUID VOLUME ASSESSMENT Routine 06/18/2025 4:50 PM EDT Intrauterine growth restriction affecting care of mother, unspecified trimester, not applicable or unspecified fetus [facility] LMTD OB, 1 OR MORE FETUS Routine 06/11/2025 8:39 AM EDT Poor growth affecting management of mother in third trimester, single or unspecified fetus Gestational diabetes mellitus (GDM) in third trimester, gestational diabetes method of control unspecified [facility] COMPREHENSIVE ANATOMIC SURVEY Routine 06/04/2025 3:06 PM [...] Last 3 Months Results * US MFM AMNIOTIC FLUID VOLUME ASSESSMENT (06/18/2025 4:50 PM EDT) Only the most recent of3 resultswithin the time period is included. 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 Results forwarded to ordering provider so they can follow up with the patient as necessary Procedure Note Sarah Dennis MD - 06/18/2025 NAME: JERICA CELIS : 2000 SEX: F Accession Number: [id number] ORDERING PHYSICIAN: SARAH DENNIS REFERRING PHYSICIAN: MACKENZIE RODRIGUEZ Coding ----- --------- Procedures 96624: Ultrasound, uterus, real time with imagedocumentation, limited one or more fetuses 02160: Doppler velocimetry, ; umbilical artery Indication ----- [...] byprimary OB provider unless otherwise specified by [facility]. Results forwarded to ordering provider so they can follow up with thepatient as necessary Sarah Dennis MD [facility] US ORDERABLES Final Re sult * Glucose random or fasting- POCT (05/13/2025) External Glucose Fasting Or Random (Fbs) 80 MANUALLY TRANSCRIBED RESULTS Blood Venous blood / Unknown 05/13/2025 Wendy Miranda MD LAB BLOOD ORDERABLES Final [...] Result MANUALLY TRANSCRIBED RESULTS * Glucose tolerance, 3 hours (05/04/2025) Glucose Tolerance Test 3 Hour 133 MANUALLY TRANSCRIBED RESULTS Blood Venous blood / Unknown us Not In System Ref Prov LAB BLOOD ORDERABLES Kayli l Result Performing Organization Address City/[facility] Co de Phone Number MANUALLY TRANSCRIBED RESULTS * Glucose, tolerance fasting (05/04/2025) Glucose Tolerance Test Fasting 108 MANUALLY TRANSCRIBED RESULTS Blood Venous blood / Unknown us Not In System Ref Prov LAB BLOOD ORDERABLES Kayli l Result Performing Organization Address City/State/[facility] Co de Phone Number MANUALLY TRANSCRIBED RESULTS * Glucose 1h post 50g load (04/27/2025) Glucose, 1 hr PP 50GM dose 171 MANUALLY TRANSCRIBED RESULTS Blood Venous blood / Unknown us Not In System Ref Prov LAB BLOOD ORDERABLES Kayli l Result MANUALLY TRANSCRIBED RESULTS from Last 3 Months Insurance [employer]
--- OUTSIDE RECORDS SUMMARY | 2025-06-22 10:53 | XMS_ITS | Clinical Summary ---
Author Organization [facility] Address [address] [place] [address] Care Team Providers Care Rice Drier Operator Name Role Phone Unallocated, Noms Provider [...] antepartum, gestational diabetes method of control unspecified ([facility]),Elevat ed glucose tolerance test 1 kit Daily [...] Noted Date Diagnosed Date induced hypertension, antepartum ([facility]) 05/28/2025 Gestational diabetes mellitus (GDM), antepartum ([facility]) 05/28/2025 Estimated Date of Delivery Comme nts Yes 07/22/2025 Based on last me nstrual period of 10/15/2024 (Exact Date) Encounters Date Type Department Care Team Description 06/19/2025 2:40 PM [place] [phone] Mackenzie Rodriguez DO Third trimester ([facility]); 35 weeks gestation of ([facility]); Diet controlled gestational diabetes mellitus (GDM), antepartum ([facility]); induced hypertension, antepartum ([facility]) 06/19/2025 [place] [address] Mackenzie Rodriguez, 06/15/2025 Clinisync Result Encounter NOMS External Department Unsolicited Rossana Leach PA 06/12/2025 3:00 PM EDT Routine [facility] [address] [facility] [place] [address] Rossana Leach PA Third trimester ([facility]); 34 weeks gestation of ([facility]) 06/12/2025 Bamboo flowsheet [facility] [address] [facility] [place] [address] Rossana Leach PA 06/08/2025 Clinisync Result Encounter NOMS External Department Unsolicited Rossana Leach PA 06/06/2025 Results Follow-Up [facility] [address] [place] [address] Glenna Butler LPN US OB 14+ weeks anatomy scan 06/05/2025 Abstract [facility] [address] [place] [address] Mackenzie Rodriguez, 06/04/2025 External Result Encounter [facility] [address] [place] [address] Mackenzie Rodriguez, 06/01/2025 Clinisync Result Encounter NOMS External Department Unsolicited Rossana Leach PA 05/28/2025 10:30 AM EDT Routine [facility] [address] [place] [address] Mackenzie Rodriguez, Third trimester ([facility]); 32 weeks gestation of ([facility]); Gestational diabetes mellitus (GDM), antepartum, gestational diabetes method of control unspecified ([facility]); induced hypertension, antepartum ([facility]) 05/28/2025 Bamboo flowsheet [facility] [address] [place] [phone] Mackenzie Rodriguez, DO 05/25/2025 Clinisync Result Encounter NOMS External Department Unsolicited Rossana Leach PA 05/22/2025 2:40 PM EDT Routine [facility] [address] [place] [address] Mackenzie Rodriguez, DO Third trimester ([facility]); 31 weeks gestation of ([facility]) 05/22/2025 Bamboo flowsheet [facility] HOLLYN U[facility] [place] [address] Mackenzie Rodriguez, DO 05/20/2025 Clinisync Result Encounter NOMS External Department Unsolicited Mackenzie Rodriguez, DO 05/18/2025 Clinisync Result Encounter NOMS External Department Unsolicited Rossana Leach PA 05/18/2025 Clinisync Result Encounter NOMS External Department Unsolicited Mackenzie Rodriguez, DO 05/14/2025 2:40 PM [place] [address] Mackenzie Rodriguez, DO Third trimester ([facility]); 30 weeks gestation of ([facility]); induced hypertension, antepartum ([facility]) 05/14/2025 Bamboo flowsheet [facility] TREVIÑOGYN U[facility] [place] [address] Mackenzie Rodriguez, DO 05/11/2025 Clinisync Result Encounter NOMS External Department Unsolicited Rossana Leach PA 05/08/20[place] [phone] Mackenzie Rodriguez, DO 05/07/2025 [place] [address] Dendinger, Glenna, FLOUR DISTRIBUTOR ALL CBC WITH AUTO DIFF, SRMCOH PROTHROMBIN TIME INR W/O COUM, [facility] APTT, Additional followed-up results: 6 05/06/2025 Clinisync Result Encounter NOMS External Department Unsolicited Rossana Leach PA 05/04/2025 Clinisync Result Encounter NOMS External Department Unsolicited Rossana Leach PA 05/04/2025 Clinisync Result Encounter NOMS External Department Unsolicited Rossana Leach PA 05/04/2025 Telephone [facility] PANG [address] [place] [address] Mackenzie Rodriguez DO 05/04/2025 Clinisync Result Encounter NOMS External Department Unsolicited Rossana Leach PA 04/30/2025 10:50 AM EDT Routine [facility] PANG [address] [place] [address] Rossana Leach PA BP check; -induced hypertension in third trimester ([facility]); Gestational diabetes mellitus (GDM) in third trimester, gestational diabetes method of control unspecified ([facility]) 04/30/2025 Bamboo flowsheet [facility] PANG [address] [place] [address] Rossana Leach PA 04/29/2025 Telephone [facility] [address] [place] [address] Kavitha Almanza MA 04/27/2025 Clinisync Result Encounter NOMS External Department Unsolicited Rossana Leach PA 04/25/2025 2:50 PM EDT Office Visit [facility] [address] [place] [address] Rossana Leach PA Second trimester ([facility]); 27 weeks gestation of ([facility]); induced hypertension, antepartum ([facility]) 04/25/2025 Bamboo flowsheet [facility] TREVIÑOGYKeegan [address] [place] [address] Rossana Leach PA 04/11/2025 3:30 PM EDT Routine [facility] PANG [address] [facility] [place] [address] Rossana Leach PA Second trimester ([facility]); 25 weeks gestation of ([facility]); Diabetes mellitus screening; Elevated BP without diagnosis of hypertension 04/11/2025 Bamboo flowsheet [facility]man [facility] [place] [address] Rossana Leach PA 03/28/2025 Abstract [facility] [place] [address] Mackenzie Rodriguez DO 03/25/2025 Clinisync Result Encounter NOMS External Department Unsolicited Mackenzie Rodriguze DO from Last 3 Months Family History [...] (180 lb) 06/19/2025 3:04 PM EDT Height 160 cm (5' 3 ) 01/06/2023 12:00 PM EDT Body Mass Index 31.89 01/06/2023 12:00 PM EDT Plan of Treatment Upcoming Encounters Date Type Department Care Team (Late st Contact Info) Description 06/26/2025 9:10 AM EDT Routine [facility] [address] [place] [phone] Megan Aranda, DIGITAL AD TRAFFICKER [address] [place] [place] [phone] 07/04/2025 9:40 AM EDT Routine [facility] [address] [place] [phone] Megan Aranda, DIGITAL AD TRAFFICKER [address] [place] [address] Health Maintenance Due Date Last Done Comments Influenza Vaccine (#1) 2025 08/28/2003, 2002 Procedures Procedure Name Priority Date/Time Associated Diagnosis Comments POCT URINALYSIS DIPSTICK Routine 06/19/2025 3:05 PM EDT Third trimester ([facility]) US OB BPP W NON-STRESS 06/15/2025 12:51 PM EDT POCT URINALYSIS DIPSTICK Routine 06/12/2025 3:32 PM EDT Third trimester ([facility]) 34 weeks gestation of ([facility]) US OB BPP W NON-STRESS 06/08/2025 12:10 PM EDT US OB 14+ WEEKS ANATOMY SCAN 06/04/2025 4:20 PM EDT US OB BPP W NON-STRESS 06/01/2025 12:03 PM EDT POCT URINALYSIS DIPSTICK Routine 05/28/2025 11:00 AM EDT Third trimester ([facility]) US OB BPP W NON-STRESS 05/25/2025 11:13 AM EDT POCT URINALYSIS DIPSTICK Routine 05/22/2025 3:12 PM EDT Third trimester ([facility]) TBH TOTAL PROTEIN 24 HOUR URINE Routine [...] dipstick manually resulted (06/19/2025 3:05 PM EDT) Only the most recent of7 resultswithin the time period is included. Color, UA Yellow Clarity, UA Cloudy Glucose, [...] - Positive Urine 06/19/2025 3:05 PM EDT [facility] POINT OF CARE TEST ENTER/EDIT OR DERABLES Final Result * US OB BPP W NON-STRESS (06/15/2025 12:51 PM EDT) Only the most recent of7 resultswithin the time period is included. Anatomical Region Laterality Modality Other 06/15/2025 12:5 1 PM EDT Narrative 06/15/2025 12:54 PM EDT [address] [address] Ultrasound Report Signed Patient: VIMAL FUNES MR#: [id number] : 2000 Acct:[id number] Age/Sex: 25 / F ADM Date: 06/15/25 Loc: [facility] 251-[address]: Rossana Leach Ordering Physician: Rossana Leach Date of Service: 06/15/25 Procedure(s): US OB BPP w non-stress Accession Number(s): [id number] cc: LUIS Watkins [address] [address] Patient Name: VIMAL FUNES MRN: [id number] date: 2000 Sex: F Assigned Patient Location: US Current Patient Location: US Accession/Order Number: [id number] Exam Date: 06/15/2025 11:07 Report Date: 06/15/2025 12:51 At the request of: ROSSANA LEACH Procedure: US OB BPP w non-stress Biophysical profile. Reason for exam: Gestational diabetes COMPARISON: 06/08/2025 TECHNIQUE: Transabdominal imaging of the gravid uterus was obtained. FINDINGS: The sales recruiter reports a BPP of 8 out of 8. DANYA is normal at 11.0 cm. heart rate 136 bpm. US/US OB BPP w non-stress IMPRESSION: BPP 8 out of 8. Impression dictated by: Amadou Carias M.D. 06/15/2025 12:51 PM Dictation Location: [place] [address] Electronically authenticated by: [id number] Y Date: 06/15/2025 12:51 Dictated By: Amadou Carias M.D. Signed By: 06/15/25 1254 DD/ 1251 TD/TT: Purchasing And Claims Supervisor: Procedure Note Radiology, Radiologist, MD - 06/15/2025 [place] [address] Ultrasound Report Signed Patient: VIMAL FUNES MMR#: [id number] : 2000Acct:[id number] Age/Sex: 25 / FADM Date: 06/15/25 Loc: [facility] 251-[address]: Rossana Leach Ordering Physician: Rossana Leach Date of Service: 06/15/25 Procedure(s): US OB BPP w non-stress Accession Number(s): [id number] cc: Rossana Leach; LUIS SEE [place] [id number] Patient Name: VIMAL FUNES MRN: [id number] date: 2000 Sex: F Assigned Patient Location: Current Patient Location: Accession/Order Number: [id number] Exam Date: 06/15/2025 11:07 Report Date: 06/15/2025 12:51 At the request of: ROSSANA LEACH Procedure: US OB BPP w non-stress Biophysical profile. Reason for exam: Gestational diabetes COMPARISON: 06/08/2025 TECHNIQUE: Transabdominal imaging of the gravid uterus was obtained. FINDINGS: The sales recruiter reports a BPP of 8 out of 8. DANYA is normal at11.0 cm. heart rate 136 bpm. US/US OB BPP w non-stress IMPRESSION: BPP 8 out of 8. Impression dictated by: Amadou Carias M.D. 06/15/2025 12:51 PM Dictation Location: [employer] Electronically authenticated by: [id number] Y Date: 2:51 Dictated By: Amadou Carias M.D. Signed By:06/15/25 1254 DD/ 1251 TD/TT: Purchasing And Claims Supervisor: us Rossana BISWAS [facility] Final Result * US OB 14+ weeks anatomy scan (06/04/2025 4:20 PM EDT) Anatomical Region Laterality Modality Body Ultrasound 06/04/2025 4:20 PM EDT Narrative 06/04/2025 4:20 PM EDT THIS EXAM WAS PERFORMED AT [facility] NAME: JERICA CELIS : 2000 SEX: F Accession Number: [id number] ORDERING PHYSICIAN: CHRIS MARTIN REFERRING PHYSICIAN: MACKENZIE RODRIGUEZ Coding ----- --------- Procedures 49040: Ultrasound, uterus, real time with image documentation, and maternal evaluation plus detailed anatomic examination, transabdominal approach;single or first gestation 13481: Doppler velocimetry, ; umbilical artery Indication ----- [...] EFW (oz) 4 oz EFW by: Hadlock ([id number]) Extended Tibia 49.0 mm 29w 3d <1% Khanh Foot 56.8 mm <1% Chitty Bias Cutter Helper 4.6 mm CM 6.2 mm 19% Nicolaides [...] bone. Maxilla. Mandible. Orbits. Heart/Thorax: LVOT view. 3-bgpbkl-rpjccsj view. Situs. Ductal arch view. Cardiac position. [...] 4.2 cm. Recommendations ----- --------- Please see [facility] documentation from today. Subsequent follow up or other follow up as clinically determined by primary OB provider unless otherwise specified by [facility]. Results forwarded to ordering provider so they can follow up with the patient as necessary. The copy-to physician of this order is MACKENZIE [place] The ordering physician of this order is CHRIS Patterson Procedure Note Radiology, Radiologist, - 06/04/2025 THIS EXAM WAS PERFORMED AT [facility] NAME: JERICA CELIS : 2000 SEX: F Accession Number: [id number] ORDERING PHYSICIAN: CHRIS MARTIN REFERRING PHYSICIAN: MACKENZIE RODRIGUEZ Coding ----- --------- Procedures 24358: Ultrasound, uterus, real time with imagedocumentation, and maternal evaluation plus detailed anatomic examination, transabdominalapproach;single or first gestation 64170: Doppler velocimetry, ; umbilical artery Indication ----- [...] EFW (oz) 4 oz EFW by: Hadlock ([id number]-FL) Extended Tibia 49.0 mm 29w 3d <1% Khanh Foot 56.8 mm <1% Chitty Bias Cutter Helper 4.6 mm CM 6.2 mm 19% Nicolaides [...] bone. Maxilla. Mandible. Orbits. Heart/Thorax: LVOT view. 1-empgsl-xgmrctn view. Situs. Ductal arch view.Cardiac position. Cardiac [...] - 05/20/2025 7:25 PM EDT us Mackenzie Rodriguez DO [facility] Final Result [facility] * (ABNORMAL) TBH CREATININE (05/18/2025 11:03 AM EDT) Only the most recent of2 resultswithin the time period is included. CREATININE 0.38(L) 0.55 - 1.02 mg/dL TBH TBH EGFR-AF ALBANIAN >60 >=60 mL/min/1.7 3m 2 TBH TBH EGFR-NON AF ALBANIAN >60 >=60 mL/min/1.7 3m 2 TBH 05/18/2025 11:0 3 AM EDT 05/18/2025 11:08 AM EDT Narrative CLINISYNC - 05/18/2025 11:50 AM EDT Mackenzie Michael DO CLINISYNC Final Result Performing Organization Address [facility] Co de Phone Number [facility] * SRMCO PROTHROMBIN TIME INR W/O COUM (05/18/2025 11:03 [...] Narrative CLINISYNC - 05/18/2025 11:29 AM EDT [facility] Michael DO CLINISYNC Final Result [facility] * [facility] AST (05/18/2025 11:03 AM EDT) Only the most recent of2 resultswithin the time period is included. ASPARTATE AMINO TRANSFERASE 18 15 - 37 U/L TBH 05/18/2025 11:0 3 AM EDT 05/18/2025 11:08 AM EDT Narrative CLINISYNC - 05/18/2025 11:50 AM EDT us Mackenzie Michael DO CLINISYNC Final Result Performing Organization Address [facility] Co de Phone Number [facility] * [facility] APTT (05/18/2025 11:03 AM EDT) Only the most recent of2 resultswithin the time period is included. PARTIAL THROMBOPLASTIN TIME 25.6 22.3 - 36.2 sec TBH 05/18/2025 11:0 3 AM EDT 05/18/2025 11:08 AM EDT Narrative CLINISYNC - 05/18/2025 11:29 AM EDT us Mackenzie Michael DO CLINISYNC Final Result Performing Organization Address [facility] Phone Number [facility] * ALL URIC ACID (05/18/2025 11:03 AM EDT) Only the most recent of2 resultswithin the time period is included. URIC ACID 4.0 2.6 - 6.0 mg/dL TB 05/18/2025 11:0 3 AM EDT 05/18/2025 11:08 AM EDT Narrative CLINISYNC - 05/18/2025 11:50 AM EDT us Mackenzie Michael DO CLINISYNC Final Result Performing Organization Address [facility] de Phone Number [facility] * ALL LDH (05/18/2025 11:03 AM EDT) Only the most recent of2 resultswithin the time period is included. LACTATE DEHYDROGENASE 147 81 - 234 U/L TBH 05/18/2025 11:0 3 AM EDT 05/18/2025 11:08 AM EDT Narrative CLINISYNC - 05/18/2025 11:50 AM EDT us Mackenzie Michael DO CLIN[facility] Final Result Performing Organization Address [facility]/ZIP Co de Phone Number [facility]IN[facility]NC [facility] * [...] us Mackenzie Michael DO [facility] Final Result [facility] * ALL BUN (05/18/2025 11:03 AM EDT) Only the most recent of2 resultswithin the time period is included. BLOOD UREA NITROGEN 9.0 7.0 - 18.0 mg/dL TB 05/18/2025 11:0 3 AM EDT 05/18/2025 11:08 AM EDT Narrative CLINISYNC - 05/18/2025 11:50 AM EDT us Mackenzie Michael DO CLINIS[facility]NC Final Result Performing Organization Address City/[facility]/ZIP Co de Phone Number [facility] * US OB GROWTH (05/04/2025 12:08 PM EDT) Anatomical Region Laterality Modality Other 05/04/2025 12:0 8 PM EDT Narrative 05/04/2025 12:11 PM EDT [address] [address] Ultrasound Report Signed Patient: VIMAL FUNES MR#: [id number] : 2000 Acct:[id number] Age/Sex: 25 / F ADM Date: 05/04/25 Loc: [facility] 250- Attending Dr: Rossana Leach Ordering Physician: Rossana Leach Date of Service: 05/04/25 Procedure(s): US OB growth Accession Number(s): [id number] cc: Rossana Leach; LUIS SEE [address] [address] Patient Name: VIMAL FUNES MRN: [id number] date: 2000 Sex: F Assigned Patient Location: [facility] Current Patient Location: [facility] Accession/Order Number: [id number] Exam Date: 05/04/2025 12:06 Report Date: 05/04/2025 [...] Jr., D.O. 05/04/2025 12:08 PM Dictation Location: [employer] Electronically authenticated by: [id number] Y Date: 05/04/2025 12:08 Dictated By: Bulmaro Arias M.D. Signed By: 05/04/25 1211 DD/ 1208 TD/TT: Purchasing And Claims Supervisor: Procedure Note Radiology, Radiologist, MD - 05/04/2025 [place] [address] Ultrasound Report Signed Patient: VIMAL FUNES MMR#: [id number] : 2000Acct:[id number] Age/Sex: 25 / FADM Date: 05/04/25 Loc: [facility] 250-[address]: Rossana Leach Ordering Physician: Rossana Leach Date of Service: 05/04/25 Procedure(s): US OB growth Accession Number(s): [id number] cc: Rossana Leach; LUIS SEE [facility] [place] [id number] Patient Name: VIMAL FUNES MRN: [id number] date: 2000 Sex: F Assigned Patient Location: [facility] Current Patient Location: [facility] Accession/Order Number: [id number] Exam Date: 05/04/2025 12:06 Report Date: 05/04/2025 12:08 At the request of: ROSSANA HAYLEE Procedure: US OB growth Growth ultrasound. Reason [...] Jr., D.O. 05/04/2025 12:08 PM Dictation Location: [employer] Electronically authenticated by: [id number] Y Date: :08 Dictated By: Bulmaro Arias M.D. Signed By:05/04/25 1211 DD/ 1208 TD/TT: Purchasing And Claims Supervisor: Rossana [facility] Final Result [...] BISWAS LAB BLOOD ORDERABLES Final Resul t [facility] * (ABNORMAL) GLUCOSE 1 HOUR (04/27/2025 10:05 AM EDT) GLUCOSE 1 HOUR 171(H) <130 mg/dL TB 04/27/2025 10:0 5 AM EDT 04/27/2025 10:06 AM EDT Narrative DOMINGA - 04/27/2025 10:45 AM EDT Rossana BISWAS LAB BLOOD ORDERABLES Final Resul t [facility] * OB INCOMPLETE ANATOMY (03/25/2025 8:25 AM EDT) Anatomical Region Laterality Modality Other 03/25/2025 8:25 AM EDT Narrative 03/25/2025 8:27 [place] [address] Ultrasound Report Signed Patient: VIMAL FUNES MR#: [id number] : 2000 Acct:[id number] Age/Sex: 24 / F ADM Date: 03/23/25 Loc: US Attending Dr: Mackenzie Rodriguez D.O. Ordering Physician: Mackenzie Rodriguez D.O. Date of Service: 03/23/25 Procedure(s): US OB incomplete anatomy Accession Number(s): [id number] cc: LUIS SEE ; Mackenzie Rodriguez D.O. [place] [id number] Patient Name: VIMAL FUNES MRN: [facility]:[id number] date: 2000 Sex: F Assigned Patient Location: US Current Patient Location: US Accession/Order Number: [id number] Exam Date: 03/25/2025 08:23 Report Date: 03/25/2025 [...] 03/25/2025 8:25 AM Dictation Location: [place] [address] Electronically authenticated by: [id number] Y Date: 03/25/2025 08:25 Dictated By: Meghana Brown M.D. Signed By: 03/25/25826 DD/ 4 TD/TT: Purchasing And Claims Supervisor: Procedure Note Radiology, Radiologist, MD - 03/25/2025 [place] [address] Ultrasound Report Signed Patient: VIMAL FUNES MMR#: [id number] : 2000Acct:[id number] Age/Sex: 24 / FADM Date: 03/23/25 Loc: US Attending Dr: Mackenzie Rodriguez D.O. Ordering Physician: Mackenzie Rodriguez D.O. Date of Service: 03/23/25 Procedure(s): US OB incomplete anatomy Accession Number(s): [id number] cc: LUIS SEE ; Mackenzie Rodriguez D.O. [place] [address] Patient Name: VIMAL FUNES MRN: [id number] date: 2000 Sex: F Assigned Patient Location: Current Patient Location: US Accession/Order Number: [id number] Exam Date: 03/25/2025 08:23 Report Date: 03/25/2025 [...] 03/25/2025 8:25 AM Dictation Location: [place] [address] Electronically authenticated by: [id number] Y Date: 508:25 Dictated By: Meghana Brown M.D. Signed By:03/25/25826 DD/ 4 TD/TT: Purchasing And Claims Supervisor[place] [facility] [place] [facility] Final Result from Last 3 Months Insurance [facility] [employer] MED[employer] Care Teams Rice Drier Operator Relationship Specialty Start Date End Date Unallocated, Noms Gilda, [address] [place] [phone] PCP - General Family Medicine 08/03/24
--- OUTSIDE RECORDS SUMMARY | 2025-06-22 10:53 | XMS_ITS | Encounter Summary ---
Author Organization [facility] Address [address] [place] [address] Care Team Providers Care Sqe Name Role Phone Unallocated, Noms Provider Primary Care Provi krissy Encounter Details Date Type Department Care Team (Late Contact Info) Description 06/05/2025 Abstract ARJUN PANG [address] [facility] [address] [place] [address] Jose Rodriguez DO [address] [facility] [address] [place], [place] [address] Social History Tobacco Use Types Packs/Day Years [...] 9:10 AM EDT Routine NOMMay PANG [address] [facility] [place] [address] Megan Aranda, FINAL TESTER [address] [facility] [address] [place] [address] 07/04/2025 9:40 AM EDT Routine NOMMay TREVIÑOGYN [address] [facility] [place] [address] Megan Aranda, VLAD [address] [place] [address] documented as of this encounter Visit Diagnoses Not on filedocumented in this encounter Care Teams Sqe Relationship Specialty Start Date End Date Unallocated, Noms Gilda, [address] [place] [address] PCP - General Family Medicine 08/03/24 documented as of this encounter
--- OUTSIDE RECORDS SUMMARY | 2025-06-22 10:53 | XMS_ITS | Encounter Summary ---
Author Organization [facility] Address [address] [place] [address] Care Team Providers Care Nursing Service Administrator Name Role Phone Unallocated, Noms Provider Primary Care Provi krissy Encounter Details Date Type Department Care Team (Late Contact Info) Description 06/12/2025 Bamboo flowsheet ARJUN PANG [address] [place] [address] Rossana Ramos PA [facility] [address] [place], [facility] Social History Tobacco Use Types Packs/Day Years [...] 9:10 AM EDT Routine [facility] PANG [address] [place] [place] [address] Megan Aranda VLAD [address] [facility] [address] [place] [address] 07/04/2025 9:40 AM EDT Routine [facility] OBGYN [address] [place] [address] Megan Aranda, VLAD [address] [facility] [address] [place] [address] documented as of this encounter Visit Diagnoses Not on filedocumented in this encounter Care Teams Nursing Service Administrator Relationship Specialty Start Date End Date Unallocated, Noms MD G[address] [place] [address] PCP - General Family Medicine 08/03/24 documented as of this encounter
--- OUTSIDE RECORDS SUMMARY | 2025-06-22 10:53 | XMS_ITS | Encounter Summary ---
Author Organization [facility] Address [address] [place] [address] Care Team Providers Care Trimmer Climber Name Role Phone Unallocated, Noms Provider Primary Care Provi krissy Encounter Details Date Type Department Care Team (Late st Contact Info) Description 06/08/2025 Clinisync Result Encounter [facility] External Department Unsolicited Collin Leach PA [address] [facility] [address] [place], [facility]11 Social History Tobacco [...] AM EDT Routine [facility] [place] [facility] [address] [place] [address] Megan Aranda, DROSOPHERE OPERATOR [address] [facility] [facility] [address] [place] [address] 07/04/2025 9:40 AM EDT Routine [facility] [place] [facility] [address] [place] [address] Megan Aranda, VLAD [address] [facility] [address] [place] [place] [address] documented as of this encounter Procedures Procedure Name Priority Date/Time Associated Diagnosis Comments US OB BPP W NON-STRESS 06/08/2025 12:10 PM EDT documented in this encounter Results * US OB BPP W NON-STRESS (06/08/2025 12:10 PM EDT) Anatomical Region Laterality Modality Other 06/08/2025 12:1 0 PM EDT Narrative 06/08/2025 12:13 PM EDT [address] [address] Ultrasound Report Signed Patient: VIMAL PIZANO MR#: [id number] : 2000 Acct:[id number] Age/Sex: 25 / F ADM Date: 06/08/25 Loc: US Attending Dr: Collin Leach Ordering Physician: Collin Leach Date of Service: 06/08/25 Procedure(s): US OB BPP w non-stress Accession Number(s): [id number] cc: Collin Leach; LUIS SEE [address] [address] Patient Name: VIMAL PIZANO MRN: [id number] date: 2000 Sex: F Assigned Patient Location: [facility] Current Patient Location: Accession/Order Number: [id number] Exam Date: 06/08/2025 11:01 Report Date: 06/08/2025 [...] Knapp M.D. 06/08/2025 12:10 PM Dictation Location: [place] [address] Electronically authenticated by: [id number] Y Date: 06/08/2025 12:10 Dictated By: Shivam Knapp D.O. Signed By: 06/08/25 1213 DD/ 1210 TD/TT: Social Organization Professor: Procedure Note Radiology, Radiologist, MD - 06/08/2025 [place] [address] Ultrasound Report Signed Patient: VIMAL PIZANO MMR#: [id number] : 2000Acct:[id number] Age/Sex: 25 / FADM Date: 06/08/25 Loc: US Attending Dr: Collin Leach Ordering Physician: Collin Leach Date of Service: 06/08/25 Procedure(s): US OB BPP w non-stress Accession Number(s): [id number] cc: Collin Leach; LUIS SEE [place] [address] Patient Name: VIMAL PIZANO MRN: [id number] date: 2000 Sex: F Assigned Patient Location: [facility] Current Patient Location: Accession/Order Number: [id number] Exam Date: 06/08/2025 11:01 Report Date: 06/08/2025 [...] Knapp M.D. 06/08/2025 12:10 PM Dictation Location: [place] [address] Electronically authenticated by: [id number] Y Date: 2:10 Dictated By: Shivam Knapp D.O. Signed By:06/08/25 1213 DD/ 1210 TD/TT: Social Organization Professor: us Collin BISWAS [facility] Final Result documented in this encounter Visit Diagnoses Not on filedocumented in this encounter Care Teams Trimmer Climber Relationship Specialty Start Date End Date Unallocated, Noms Provider, [address] [place] [address] PCP - General Family Medicine 08/03/24 documented as of this encounter
--- OUTSIDE RECORDS SUMMARY | 2025-06-22 10:53 | XMS_ITS | Encounter Summary ---
Author Organization [facility] Address [address] [place] [address] Care Team Providers Care Human Resources Vice President Name Role Phone Unallocated, Noms Provider Primary Care Provi krissy Encounter Details Date Type Department Care Team (Late st Contact Info) Description 06/06/2025 Results Follow-Up [facility] [place] [facility] [address] [facility] [address] [place] [address] Glenna Butler LPN [address] [place] [address] OB 14+ weeks anatomy scan [...] 06/26/2025 9:10 AM EDT Routine [facility] [place] OBCHICHO [address] [facility] [place] [address] Megan Aranda NP [address] [facility] [address] [place] [place] [address] 07/04/2025 9:40 AM EDT Routine NOM[facility] PANG [address] [place] [address] Megan Aranda, VLAD [address] [facility] [address] [place] [address] documented as of this encounter Visit Diagnoses Not on filedocumented in this encounter Care Teams Human Resources Vice President Relationship Specialty Start Date End Date Unallocated, Arjun Vo MD [address] [place] [address] PCP - General Family Medicine 08/03/24 documented as of this encounter
--- OUTSIDE RECORDS SUMMARY | 2025-06-22 10:53 | XMS_ITS | Encounter Summary ---
Author Organization [facility] Address [address] [place] [address] Care Team Providers Care Regional Rehabilitation Director Name Role Phone Vaishali Zapata MD Primary Care Provider Bipin cheng Unallocated, Noms Provider Primary Care Provi krissy Encounter Details Date Type Department Care Team (Late st Contact Info) Description 06/28/2024 Abstract [facility]JUN [facility]ANG [address] [facility] [place] [address] Jose Rodriguez DO [address] [place]é [place], [place] [address] Social History Tobacco Use Types Packs/Day Years [...] 9:10 AM EDT Routine ARJUN PANG [address] [place] [address] Megan Aranda, VLAD [address] [facility] [address] [place] [address] 07/04/2025 9:40 AM EDT Routine [facility] [place] PANG [address] [facility] [place] [address] Megan Aranda, LENS FINISHER [address] [place] [address] documented as of this encounter Visit Diagnoses Not on filedocumented in this encounter Care Teams Regional Rehabilitation Director Relationship Specialty Start Date End Date Vaishali Zapata MD [address] [place] [address] PCP - General Family Medicine 02/04/23 08/02/24 Unallocated, Noms MD Gilda [address] [place] [address] PCP - General Family Medicine 08/03/24 documented as of this encounter
--- OUTSIDE RECORDS SUMMARY | 2025-06-22 10:53 | XMS_ITS | Encounter Summary ---
Author Organization [facility] Address [address] [place] [address] Care Team Providers Care Enrobing Machine Feeder Name Role Phone Unallocated, Noms Provider Primary Care Provi krissy Encounter Details Date Type Department Care Team (Late st Contact Info) Description 08/10/2024 Abstract ARJUN PANG [address] [place] [address] Jose Rodriguez DO [address] [facility] [address] [place]ué [place], [facility]11 Social History Tobacco Use Types [...] 9:10 AM EDT Routine ARJUN PANG [address] [place] [address] Megan Aranda, TRANSMISSION AND COORDINATION ENGINEER [address] [place] [address] 07/04/2025 9:40 AM EDT Routine [facility] PANG [address] [facility] [address] Megan Aranda, TRANSMISSION AND COORDINATION ENGINEER [address] [facility] [address] [place] [address] documented as of this encounter Visit Diagnoses Not on filedocumented in this encounter Care Teams Enrobing Machine Feeder Relationship Specialty Start Date End Date Unallocated, Noms MD Gilda [address] [facility] [place] [address] PCP - General Family Medicine 08/03/24 documented as of this encounter
--- OUTSIDE RECORDS SUMMARY | 2025-06-22 10:53 | XMS_ITS | Encounter Summary ---
Author Organization [facility] Address [address] [place] [address] Care Team Providers Care Sock And Stocking Ironer Name Role Phone Vaishali Chaidez MD Primary Care Provider Bipin cheng Unallocated, Noms Provider Primary Care Provi krissy Encounter Details Date Type Department Care Team (Late st Contact Info) Description 06/29/2024 Clinisync Result Encounter NOMS External Department Unsolicited Mackenzie Rodriguez DO [address] [place], [facility]11 Social History Tobacco Use Types [...] Routine [facility] [place] [facility] [address] [place] [address] Megan Aranda, CONE SEWER [address] [place] [address] 07/04/2025 9:40 AM EDT Routine [facility] [place] [facility] [address] [facility] [place] [place] [address] Megan Aranda, CONE SEWER [address] [facility] [address] [place] [address] documented as of this encounter Procedures Procedure Name Priority Date/Time Associated Diagnosis Comments US OB TRANSVAGINAL 06/29/2024 9: 11 AM EDT documented in this encounter Results * US OB TRANSVAGINAL (06/29/2024 9:11 AM EDT) Anatomical Region Laterality Modality Other 06/29/2024 9:11 AM EDT Narrative 06/29/2024 9:14 AM EDT [address] [address] Ultrasound Report Signed Patient: Vimal Funes MR#: [id number] : 2000 Acct:[id number] Age/Sex: 24 / F ADM Date: 06/29/24 Loc: NOMS Attending Dr: Mackenzie Rodriguez D.O. Ordering Physician: Mackenzie Rodriguez D.O. Date of Service: 06/29/24 Procedure(s): US OB transvaginal Accession Number(s): [id number] cc: Mackenzie Rodriguez D.O.; VAISHALI CHAIDEZ [address] [address] Patient Name: VIMAL FUNES MRN: [id number] date: 2000 Sex: F Assigned Patient Location: [facility] Current Patient Location: [facility] Accession/Order Number: [id number] Exam Date: 06/29/2024 08:37 Report Date: 06/29/2024 [...] M.D. Signed By: 06/29/24913 DD/ 0 TD/TT: Labor Arbitrator: Procedure Note Radiology, Radiologist, - 06/29/2024 [place] [address] Ultrasound Report Signed Patient: Vimal Funes MMR#: [id number] : 2000Acct:[id number] Age/Sex: 24 FADM Date: 06/29/24 Loc: [facility]OMS Attending Dr: Mackenzie Rodriguez D.O. Ordering Physician: Mackenzie Rodriguez D.O. Date of Service: 06/29/24 Procedure(s): US OB transvaginal Accession Number(s): [id number] cc: Mackenzie Rodriguez D.O.; VAISHALI CHAIDEZ [place] [id number] Patient Name: VIMAL FNUES MRN: [id number] date: 2000 Sex: F Assigned Patient Location: [facility] Current Patient Location: [facility] Accession/Order Number: [id number] Exam Date: 06/29/2024 08:37 Report Date: 06/29/2024 [...] Herrera M.D. Signed By:06/29/24913 DD/ 0 TD/TT: Labor Arbitrator: us Mackenzie Michael DO [facility] Final Result documented in this encounter Visit Diagnoses Not on filedocumented in this encounter Care Teams Sock And Stocking Ironer Relationship Specialty Start Date End Date Vaishali Chaidez MD [address] [place] [address] PCP - General Family Medicine 02/04/23 08/02/24 Unallocated, Noms Provider, [address] [place] [address] PCP - General Family Medicine 08/03/24 documented as of this encounter
--- OUTSIDE RECORDS SUMMARY | 2025-06-22 10:53 | XMS_ITS | Encounter Summary ---
Author Organization [facility] Address [address] [place] [address] Care Team Providers Care Iv Rn Name Role Phone Unallocated, Noms Provider Primary Care Provi krissy Encounter Details Date Type Department Care Team (Late st Contact Info) Description 08/10/2024 Abstract ARJUN PANG [address] [place] [address] Jose Rodriguez DO [address] [facility] [address] [place], [facility]11 Social [...] EDT Routine ARJUN PANG [address] [place] [address] Megan Aranda, ELECTRONICS DEPARTMENT MANAGER [address] [place] [address] 07/04/2025 9:40 AM EDT Routine NOMMay PANG [address] [facility] [place] [address] Megan Aranda, ELECTRONICS DEPARTMENT MANAGER [address] [facility] [address] [place] [place] [address] documented as of this encounter Visit Diagnoses Not on filedocumented in this encounter Care Teams Iv Rn Relationship Specialty Start Date End Date Unallocated, Noms MD Gilda [address] [facility] [place] [address] PCP - General Family Medicine 08/03/24 documented as of this encounter
--- OUTSIDE RECORDS SUMMARY | 2025-06-22 10:53 | XMS_ITS | Encounter Summary ---
Author Organization [employer] [facility] tem Address [facility] [address] [place] [address] Care Team Providers Care Mental Hygiene Consultant Name Role Phone Unavailable Primary Care Provider Unavailabl e Reason for Referral * Diagnostic Imaging (Routine) - Pending Review Specialty Diagnoses / Procedures Referred By Ashly thomson Referred To Contact Maternal and Medicine Diagnoses Poor growth affecting management of mother in third trimester, single or unspecified fetus Procedures US MFM with or without consult Maria Luisa Patel MD [address] [facility] [address] [address] Phone: tel: fax: Maternal- Medicine at [facility] [address] [place] [address] Phone: tel: fax: Referral ID Status Reason Start Date Expiration Date V isits Requested Visits Authorized [id number] Pending Review 06/20/2025 06/20/2026 1 1 Encounter Details Date Type Department Care Team (Late st Contact Info) Description 06/20/2025 Orders Only Maternal- Medicine at [facility] [address] [place] [address] Marii Yoo RN Poor growth affecting management [...] 06/24/2025 2:15 PM EDT Appointment Maternal Medicine [place] [address] [facility] [address] [place] [address] 07/02/2025 3:30 PM EDT Appointment [facility] - [facility] US Imaging [address] [place] [address] Scheduled Orders Name Type Priority Associated Diagnoses Orde r Schedule US [facility] with or without consult Imaging Routine Poor growth affecting management of mother in third trimester, single or unspecified fetus Expected: 06/20/2026 (Approximate), Expires: 06/20/2026 documented as of this encounter Visit Diagnoses Diagnosis Poor growth affecting management of mother in third trimester, single or unspecified fetus- Primary documented in this encounter
--- OUTSIDE RECORDS SUMMARY | 2025-06-22 10:53 | XMS_ITS | Encounter Summary ---
Author Organization [facility] tem Address [id number] [address] [place] [address] Care Team Providers Care Lathe Operator Name Role Phone Unavailable Primary Care Provider Unavailabl e Encounter Details Date Type Department Care Team (Latest Contact Info) Description 06/18/2025 Travel Social History Tobacco Use Types Packs/Day [...] 2:15 PM EDT Appointment Maternal Medicine [facility] [place] [address] 07/02/2025 3:30 PM EDT Appointment [facility] US Imaging [address] [place] [address] documented as of this encounter Visit Diagnoses Not on filedocumented in this encounter
--- OUTSIDE RECORDS SUMMARY | 2025-06-22 10:53 | XMS_ITS | Encounter Summary ---
Author Organization [facility] Address [address] [place] [address] Care Team Providers Care Hospital Ward Clerk Name Role Phone Unallocated, Noms Provider Primary Care Provi krissy Encounter Details Date Type Department Care Team (Late Contact Info) Description 06/19/2025 Abstract ARJUN PANG [address] [facility] [place] [address] Jose Rodriguez DO [address] [facility] [address]ué [place], [facility]11 Social History Tobacco Use Types Packs/Day [...] Info) Description 06/26/2025 9:10 AM EDT Routine NOMMya PANG [address] [facility] [place] [address] Megan Aranda, ATHLETIC TRAINER [address] [facility] [address] [place] [address] 07/04/2025 9:40 AM EDT Routine NOMMay [place]ÑOGYN [address] [facility] [place] [address] Megan Aranda, VLAD [address] [facility] [address] [place] [address] documented as of this encounter Visit Diagnoses Not on filedocumented in this encounter Care Teams Hospital Ward Clerk Relationship Specialty Start Date End Date Unallocated, Noms Gilda, [address] [place] [address] PCP - General Family Medicine 08/03/24 documented as of this encounter
--- OUTSIDE RECORDS SUMMARY | 2025-06-22 10:53 | XMS_ITS | Encounter Summary ---
Author Organization [facility] Address [address] [place] [address] Care Team Providers Care Booky Name Role Phone Unallocated, Noms Provider Primary Care Provi krissy Encounter Details Date Type Department Care Team (Late st Contact Info) Description 08/10/2024 Abstract ARJUN PANG [address] [place] [address] Jose Rodriguez DO [address] [facility] [address] [place], [facility] [...] EDT Routine ARJUN PANG [address] [place] [address] Megan Aranda, STEAM TUNNEL FEEDER [address] [place] [address] 07/04/2025 9:40 AM EDT Routine NOMMay PANG [address] [facility] [place] [address] Megan Aranda, STEAM TUNNEL FEEDER [address] [facility] [address] [place] [address] documented as of this encounter Visit Diagnoses Not on filedocumented in this encounter Care Teams Booky Relationship Specialty Start Date End Date Unallocated, Noms MD Gilda [address] [place] [place] [address] PCP - General Family Medicine 08/03/24 documented as of this encounter
--- OUTSIDE RECORDS SUMMARY | 2025-06-22 10:53 | XMS_ITS | Encounter Summary ---
Author Organization [facility] Address [address] [place] [address] Care Team Providers Care Ethnographer Name Role Phone Unallocated, Noms Provider Primary Care Provi krissy Encounter Details Date Type Department Care Team (Late st Contact Info) Description 06/04/2025 External Result Encounter [facility] [place] PANG [address] [place] [address] Mackenzie Rodriguez DO [facility] [address] [place], [facility]11 Social History Tobacco [...] Routine [facility] [place] PANG [address] [place] [address] Megan Aranda VLAD [address] [facility] [address] [place] [place] [address] 07/04/2025 9:40 AM EDT Routine [facility] [place] TREVIÑOGYN [address] [facility] [place] [address] Megan Aranda NP [address] [facility] [address] [place] [place] [address] documented as of this encounter Procedures Procedure Name Priority Date/Time Associated Diagnosis Comments US OB 14+ WEEKS ANATOMY SCAN 06/04/2025 4:20 PM EDT documented in this encounter Results * US OB 14+ weeks anatomy scan (06/04/2025 4:20 PM EDT) Anatomical Region Laterality Modality Body Ultrasound 06/04/2025 4:20 PM EDT Narrative 06/04/2025 4:20 PM EDT THIS EXAM WAS PERFORMED AT [place] [facility] NAME: MARIN CELIS : 2000 SEX: F Accession Number: [id number] ORDERING PHYSICIAN: CHRIS MARTIN REFERRING PHYSICIAN: MACKENZIE RODRIGUEZ Coding ----- --------- Procedures 66950: Ultrasound, uterus, real time with image documentation, and maternal evaluation plus detailed anatomic examination, transabdominal approach;single or first gestation 17222: Doppler velocimetry, ; umbilical artery Indication ----- [...] EFW (oz) 4 oz EFW by: Hadlock (VLK-[id number]-FL) Extended Tibia 49.0 mm 29w 3d <1% Khanh Foot 56.8 mm <1% Chitty Controls Operator Molded Goods 4.6 mm CM 6.2 mm 19% Nicolaides [...] bone. Maxilla. Mandible. Orbits. Heart/Thorax: LVOT view. 6-gwaqfz-kwzcggb view. Situs. Ductal arch view. Cardiac position. [...] 4.2 cm. Recommendations ----- --------- Please see [facility] documentation from today. Subsequent follow up or other follow up as clinically determined by primary OB provider unless otherwise specified by [facility]. Results forwarded to ordering provider so they can follow up with the patient as necessary. The copy-to physician of this order is MACKENZIE Victoria The ordering physician of this order is CHRIS Patterson Procedure Note Radiology, Radiologist, - 06/04/2025 THIS EXAM WAS PERFORMED AT [facility] NAME: MARIN CELIS : 2000 SEX: F Accession Number: [id number] ORDERING PHYSICIAN: CHRIS MARTIN REFERRING PHYSICIAN: MACKENZIE RODRIGUEZ Coding ----- --------- Procedures 03176: Ultrasound, uterus, real time with imagedocumentation, and maternal evaluation plus detailed anatomic examination, transabdominalapproach;single or first gestation 15855: Doppler velocimetry, ; umbilical artery Indication ----- [...] EFW (oz) 4 oz EFW by: Hadlock ([id number]-[id number]-UT-FL) Extended Tibia 49.0 mm 29w 3d <1% Khanh Foot 56.8 mm <1% [employer] Operator Molded Goods 4.6 mm CM 6.2 mm 19% Nicolaides [...] bone. Maxilla. Mandible. Orbits. Heart/Thorax: LVOT view. 8-ujbukh-wurhezy view. Situs. Ductal arch view.Cardiac position. Cardiac [...] on filedocumented in this encounter Care Teams Ethnographer Relationship Specialty Start Date End Date Unallocated, Noms Provider, [facility] [place] [address] PCP - General Family Medicine 08/03/24 documented as of this encounter
--- OUTSIDE RECORDS SUMMARY | 2025-06-22 10:53 | XMS_ITS | Encounter Summary ---
Author Organization [facility] Address [address] [place] [address] Care Team Providers Care Book Editor Name Role Phone Unallocated, Noms Provider Primary Care Provi krissy Encounter Details Date Type Department Care Team (Late st Contact Info) Description 06/15/2025 Clinisync Result Encounter [facility] External Department Unsolicited Collin Leach PA [address] [facility] [address] [place], [facility] Social History Tobacco [...] EDT Routine [facility] [address] [facility] [address] Megan Aranda, FIELD ARTILLERY OFFICER [address] [facility] [address] [place] [place] [address] 07/04/2025 9:40 AM EDT Routine [facility] [address] [facility] [address] Megan Aranda, VLAD [address] [facility] [address] [place] [address] documented as of this encounter Procedures Procedure Name Priority Date/Time Associated Diagnosis Comments US OB BPP W NON-STRESS 06/15/2025 12:51 PM EDT documented in this encounter Results * US OB BPP W NON-STRESS (06/15/2025 12:51 PM EDT) Anatomical Region Laterality Modality Other 06/15/2025 12:5 1 PM EDT Narrative 06/15/2025 12:54 PM EDT [address] [address] Ultrasound Report Signed Patient: VIMAL PIZANO MR#: [id number] : 2000 Acct:[id number] Age/Sex: 25 / F ADM Date: 06/15/25 Loc: [facility] 251-[address]: Collin Leach Ordering Physician: Collin Leach Date of Service: 06/15/25 Procedure(s): US OB BPP w non-stress Accession Number(s): [id number] cc: Collin Leach; LUIS SEE The [address] [address] Patient Name: VIMAL PIZANO MRN: [id number] date: 2000 Sex: F Assigned Patient Location: US Current Patient Location: US Accession/Order Number: [id number] Exam Date: 06/15/2025 11:07 Report Date: 06/15/2025 12:51 At the request of: COLLIN LEACH Procedure: US OB BPP w non-stress Biophysical profile. Reason for exam: Gestational diabetes COMPARISON: 06/08/2025 TECHNIQUE: Transabdominal imaging of the gravid uterus was obtained. FINDINGS: The beet end supervisor reports a BPP of 8 out of 8. DANYA is normal at 11.0 cm. heart rate 136 bpm. US/US OB BPP w non-stress IMPRESSION: BPP 8 out of 8. Impression dictated by: Amadou Carias M.D. 06/15/2025 12:51 PM Dictation Location: [place] [address] Electronically authenticated by: [id number] Y Date: 06/15/2025 12:51 Dictated By: Amadou Carias M.D. Signed By: 06/15/25 1254 DD/ 1251 TD/TT: Morning Show Host: Procedure Note Radiology, Radiologist, MD - 06/15/2025 [place] [address] Ultrasound Report Signed Patient: VIMAL PIZANO MMR#: [id number] : 2000Acct:[id number] Age/Sex: 25 / FADM Date: 06/15/25 Loc: [facility] 251-[address]: Collin Leach Ordering Physician: Collin Leach Date of Service: 06/15/25 Procedure(s): US OB BPP w non-stress Accession Number(s): [id number] cc: Collin Leach; LUIS SEE The [place] [address] Patient Name: VIMAL PIZANO MRN: [id number] date: 2000 Sex: F Assigned Patient Location: Current Patient Location: US Accession/Order Number: [id number] Exam Date: 06/15/2025 11:07 Report Date: 06/15/2025 12:51 At the request of: COLLIN LEACH Procedure: US OB BPP w non-stress Biophysical profile. Reason for exam: Gestational diabetes COMPARISON: 06/08/2025 TECHNIQUE: Transabdominal imaging of the gravid uterus was obtained. FINDINGS: The beet end supervisor reports a BPP of 8 out of 8. DANYA is normal at11.0 cm. heart rate 136 bpm. US/US OB BPP w non-stress IMPRESSION: BPP 8 out of 8. Impression dictated by: Amadou Carias M.D. 06/15/2025 12:51 PM Dictation Location: [place] [address] Electronically authenticated by: [id number] Y Date: 2:51 Dictated By: Amadou Carias M.D. Signed By:06/15/25 1254 DD/ 1251 TD/TT: Morning Show Host: Collin [facility] Final Result documented in this encounter Visit Diagnoses Not on filedocumented in this encounter Care Teams Book Editor Relationship Specialty Start Date End Date Unallocated, Noms Provider, [address] [place] [address] PCP - General Family Medicine 08/03/24 documented as of this encounter
--- OUTSIDE RECORDS SUMMARY | 2025-06-22 10:53 | XMS_ITS | Encounter Summary ---
Author Organization [facility] Address [address] [place] [address] Care Team Providers Care Mobile Qa Tester Name Role Phone Unallocated, Noms Provider Primary Care Provi krissy Encounter Details Date Type Department Care Team (Late st Contact Info) Description 03/11/2025 Results Follow-Up [facility] [place] [facility] [address] [facility] [address] [address] Glenna Butler LPN [address] [place] [address] US OB ANATOMY Social History [...] AM EDT Routine [facility] OBCHIC[facility] [address] [facility] [place] [place] [id number] Megan Aranda NP [address] [facility] [place] [address] [place] [address] 07/04/2025 9:40 AM EDT Routine [facility] [place] [facility] [address] [facility] [place] [address] Megan Aranda, VLAD [address] [place] [address] [place] [address] documented as of this encounter Visit Diagnoses Not on filedocumented in this encounter Care Teams Mobile Qa Tester Relationship Specialty Start Date End Date Unallocated, Noms MD Gilda [address] [place] [address] PCP - General Family Medicine 08/03/24 documented as of this encounter
--- OUTSIDE RECORDS SUMMARY | 2025-06-22 10:53 | XMS_ITS | Encounter Summary ---
Author Organization [facility] Address [address] [place] [address] Care Team Providers Care Jockey Valet Name Role Phone Vaishali Zapata MD Primary Care Provider Bipin cheng Unallocated, Noms Provider Primary Care Provi krissy Encounter Details Date Type Department Care Team (Late st Contact Info) Description 06/29/2024 Abstract [facility] [address] [facility] [place] [address] Jose Rodriguez DO [address] [place], [place] [address] Social History Tobacco Use Types Packs/Day Years [...] 9:10 AM EDT Routine ARJUN PANG [address] [place] [address] Megan Aranda, VLAD [address] [facility] [address] [place] [address] 07/04/2025 9:40 AM EDT Routine [facility] PANG [address] [facility] [place] [address] Megan Aranda, SPECIAL WARFARE OPERATOR [address] [facility] [address] [place] [address] documented as of this encounter Visit Diagnoses Not on filedocumented in this encounter Care Teams Jockey Valet Relationship Specialty Start Date End Date Vaishali Zapata MD [address] [place] [address] PCP - General Family Medicine 02/04/23 08/02/24 Unallocated, Noms MD Gilda [address] [place] [address] PCP - General Family Medicine 08/03/24 documented as of this encounter
--- OUTSIDE RECORDS SUMMARY | 2025-06-22 10:53 | XMS_ITS | Encounter Summary ---
Author Organization [facility] Address [address] [place] [address] Care Team Providers Care Stamps Or Coins Salesperson Name Role Phone Unallocated, Noms Provider Primary Care Provi krissy Encounter Details Date Type Department Care Team (Late st Contact Info) Description 03/06/2025 Orders Only ARJUN PANG [address] [place] [address] Kavitha Almanza MA Social History Tobacco [...] 9:10 AM EDT Routine NOM[facility] PANG [address] [place] [address] Megan Aranda, VLAD [address] [place] [address] 07/04/2025 9:40 AM EDT Routine [facility] [place] [facility] [address] [facility] [place] [address] Megan Aranda, ORIENTATION & MOBILITY SPECIALIST [address] [facility] [address] [place] [address] documented as of this encounter Procedures Procedure Name Priority Date/Time Associated Diagnosis Comments PAP SMEAR Routine 02/20/2025 12:00 AM EDT documented in this encounter Results * Pap Smear (02/20/2025 12:00 AM EDT) Swab Cervical swab / Unknown Ross[facility] ORDERABLES Final Re sult EXTERNAL LAB documented in this encounter Visit Diagnoses Not on filedocumented in this encounter Care Teams Stamps Or Coins Salesperson Relationship Specialty Start Date End Date Unallocated, Arjun Vo MD [address] [place] [address] PCP - General Family Medicine 08/03/24 documented as of this encounter
--- OUTSIDE RECORDS SUMMARY | 2025-06-22 10:53 | XMS_ITS | Encounter Summary ---
Author Organization [facility] Address [address] [place] [address] Care Team Providers Care Cryogenic Transport Driver Name Role Phone Unallocated, Noms Provider Primary Care Provi krissy Encounter Details Date Type Department Care Team (Late Contact Info) Description 03/28/2025 Abstract [facility] PANG [address] [facility] [place] [address] Jose Rodriguez DO [address] [facility] [address] [place], [facility] Social History Tobacco Use Types Packs/Day [...] 9:10 AM EDT Routine [facility] PANG [address] [facility] [place] [address] Megan Aranda, EQUITY MANAGER [address] [facility] [address] [place] [address] 07/04/2025 9:40 AM EDT Routine [facility] TREVIÑOGYN [address] [facility] [place] [address] Megan Aranda, VLAD [address] [facility] [address] [place] [address] documented as of this encounter Visit Diagnoses Not on filedocumented in this encounter Care Teams Cryogenic Transport Driver Relationship Specialty Start Date End Date Unallocated, Noms Gilda, [address] [place] [address] PCP - General Family Medicine 08/03/24 documented as of this encounter
[2025-06-22 11:12] VITALS: BP 133/89; PULSE 81
== END 2025-06-22 11:58 | disposition home or self-care (01) ==
LOC: US 10:49 → FBC 10:51
PROVIDERS: PCP Nurse Practitioner Family; Visit Provider Physician Assistant
DX: O13.3 Gestational [pregnancy-induced] hypertension without significant proteinuria, third trimester (principal); O24.419 Gestational diabetes mellitus in pregnancy, unspecified control; Z3A.35 35 weeks gestation of pregnancy
CPT/HCPCS: 76818

== ENCOUNTER 2025-06-26 10:14 | Outpatient (OUT) | payer BC, OTHER, SELFPAY ==
--- OUTSIDE RECORDS SUMMARY | 2025-06-26 09:05 | XMS_ITS ---
Author Name Auto Generated Organization OHIP Support Name Relationship Address Phone JOSSUEASIAI Next of Kin Unknown + ERWIN AUSTIN Next of Kin Unknown [phone] GEOVANNA FUNES Next of Kin Unknown [phone] JOSSUE RAMANA Next of Kin Unknown Unavailable JOSSUEASIAI Next of Kin Unknown + ERWIN [place] Next of Kin Unknown [phone] GEOVANNA FUNES Next of Kin Unknown [phone] JOSSUE RAMANA Next of Kin Unknown Unavailable JOSSUEASIAI Next of Kin Unknown + ERWIN [place] Next of Kin Unknown [phone] GEOVANNA FUNES Next of Kin Unknown [phone] JOSSUE RAMANA Next of Kin Unknown Unavailable JOSSUEASIAI Next of Kin Unknown Unavailable JOSSUEASIAI Next of Kin Unknown Unavailable ASIA MARCUMI Next of Kin Unknown + ERWIN [place] Next of Kin Unknown [phone] GEOVANNA FUNES Next of Kin Unknown [phone] ASIA MARCUMI Next of Kin Unknown + ERWIN [place] Next of Kin Unknown [phone] GEOVANNA FUNES Next of Kin Unknown [phone] ASIA MARCUMI Next of Kin Unknown + ERWIN [place] Next of Kin Unknown [phone] GEOVANNA FUNES Next of Kin Unknown [phone] ASIA MARCUMI Next of Kin Unknown Unavailable ASIA MARCUMI Next of Kin Unknown + GEOVANNA, ERWIN Next of Kin Unknown [phone] FUNES, GEOVANNA Next of Kin Unknown [phone] COOK, RAMANA Next of Kin Unknown + GEOVANNA, ERWIN Next of Kin Unknown [phone] FUNES, GEOVANNA Next of Kin Unknown [phone] COOK, RAMANA Next of Kin Unknown + GEOVANNA, ERWIN Next of Kin Unknown [phone] FUNES, GEOVANNA Next of Kin Unknown [phone] COOK, RAMANA Next of Kin Unknown + GEOVANNA, ERWIN Next of Kin Unknown [phone] FUNES, GEOVANNA Next of Kin Unknown [phone] COOK, RAMANA Next of Kin Unknown + GEOVANNA, ERWIN Next of Kin Unknown [phone] FUNESMAGDAIG Next of Kin Unknown [phone] COOK, RAMANA Next of Kin Unknown + GEOVANNA, ERWIN Next of Kin Unknown [phone] FUNESMAGDA BAUERIG Next of Kin Unknown [phone] COOK, RAMANA Next of Kin Unknown + GEOVANNA, ERWIN Next of Kin Unknown [phone] FUNESMAGDA BAUERIG Next of Kin Unknown [phone] COOK, RAMANA Next of Kin Unknown + GEOVANNA, ERWIN Next of Kin Unknown [phone] FUNES, GEOVANNA Next of Kin Unknown [phone] COOK, RAMANA Next of Kin Unknown + GEOVANNA FUNES Next of Kin Unknown [phone] Deven Funes Next of Kin [address] [place] [address] + JOSSUE RAMANA Next of Kin Unknown + GEOVANNA FUNES Next of Kin Unknown [phone] COOK, RAMANA Next of Kin Unknown + GEOVANNA FUNES Next of Kin Unknown [phone] Care Team Providers Care [facility] Sales Manager Name Role Phone NO FAMILY, PHYSICIAN Primary Care Unavailable Michael, Mackenzie Attending Unavailable Michael, Mackenzie Admitting Unavailable IRLANDA LONDON Attending Unavailable MICHAEL, MACKENZIE R Referring Unavailable MICHAEL, MACKENZIE R Attending Unavailable MICHAEL, MACKENZIE R Referring Unavailable MARIOMANAS Nair Attending Unavailable MICHAEL, MACKENZIE R Referring Unavailable MICHAEL, MACKENZIE R Referring Unavailable MICHAEL, MACKENZIE R Referring Unavailable MICHAEL, MACKENZIE R Referring Unavailable MICHAEL, MACKENZIE Attending Unavailable HAYLEE, COLLIN Attending Unavailable MICHAEL, MACKENZIE Attending Unavailable HAYLEE, COLLIN Attending Unavailable HAYLEE, OCLLIN Attending Unavailable HAYLEE, COLLIN Attending Unavailable MICHAEL, MACKENZIE Attending Unavailable MICHAEL, MACKENZIE Attending Unavailable MICHAEL, MACKENZIE Attending Unavailable HAYLEE, COLLIN Attending Unavailable MICHAEL, MACKENZIE Attending Unavailable NIMESH POWER Attending Unavailable MICHAEL, MACKENZIE Attending Unavailable HAYLEE, COLLIN Attending Unavailable PROBLEMS DATE TYPE CONDITION / CODE ATTENDING STATUS [facility] 06/18/2025 Unknown Maternal care fo r other known or suspected poor growth, unspecified trimester, not applicable or unspecified / O36.5990(ICD-10) [facility] 06/04/2025 Unknown Maternal care fo r other known or suspected poor growth, third trimester, not applicable or unspecified / O36.5930(ICD-10) MANAS MARTIN [facility] 06/04/2025 Unknown Encounter for ot her specified screening / Z36.89(ICD-10) THALIA RODRIGUEZY R [facility] 05/13/2025 Unknown Gestational diab etes mellitus in , unspecified control / O24.419(ICD-10) IRLANDA LONDON [facility] 05/13/2025 Unknown Gestational Diab etes / FREETEXT(AOF) IRLANDA LONDON [facility] PROCEDURES No Procedure Records Found RESULTS US OB TRANSVAGINAL Observed: 12/14/2024 8:26 AM Status: F Source: [facility] EPIC Order Comment: US [...] II, MD, PHD at 14-Dec-2024 08:35:59 PM [facility] Observed: 08/10/2024 10:02 AM Status: F Source: [facility] ----- ------- Specimen: [id number] Received: 08/10/24 Status: CAROL Hoang Num: [id number] Spec Type: Surgical Subm Dr: Mackenzie Rodriguez Tissues: A Products of Conception - Spontaneous or Missed (CONTENTS OF CONCEPT Procedures: HE/2, Gross/Micro L4 ----- ------- Age/ Patient Sex Location Account Attending Physician ----- ------- Vimal Funes LABELL [id number] Mackenzie Rodriguez ----- ------- SPEC NUM: [id number] RECD: 08/10/24 STATUS: CAROL HOANG NUM: [id number] CAROLIN: 08/10/24-1001 [facility] DR: Mackenzie Rodriguez ENTERED: 08/10/[address] [facility] [address]: Vignesh Morataya SPEC TYPE: Surgical DEPT: MONICA ALTMAN ENTERED BY: [id number] RECV BY: [id number] ORDERED: HE/2, Gross/Micro L4 ORDERED: HE/2, Gross/Micro [...] villi and decidua. No tissue is identified. Support Team Assoc sections of the chorionic villi are submitted in cassette A1 with claim representative sections of the decidua is submitted in cassette A2. (2, ss, [id number] A) CPT Codes 49274 ----- ------- ----- ------- Specimen: [id number] Received: 08/10/24 Status: CAROL Hoang Num: [id number] Spec Type: Surgical Subm Dr: Mackenzie Rodriguez Tissues: A Products of Conception - Spontaneous or Missed (CONTENTS OF CONCEPT Procedures: HE/2Odell/Agusto L4 ----- ------- Patient: Vimal Funes [id number] (Continued) ----- ------- Signed (signature on file) Josh Aragon MD 08/13/24 1647 ALLERGIES DATE TYPE / CODE NAME / CODE REACTION SEVERITY SOURCE Drug Class/[id number](SNO MED CT) NO KNOWN ALLERGIES [facility] ENCOUNTERS ADMIT/DISCHARGE ACCOUNT NUMBER ADMITTING ENCOUNTER CLASS LOCATION SOURCE 06/26/2025/06/26/20 [id number] Ambulatory Building:NOM S BCP OB [facility] 06/24/2025/06/25/20 25 [id number] [address] Build[address] [facility] 06/19/2025/06/19/20 25 [id number] Ambulatory Building:NOM S BCP OB [facility] 06/18/2025/06/18/20 25 [id number] Ambulatory Building:[facility] 06/12/2025/06/12/20 [id number] Ambulatory [facility] 06/11/2025/06/11/20 25 [id number] Ambulatory Building:PTH _[facility] 06/04/2025/06/04/20 25 [id number] Ambulatory Buildin 4 [facility] 06/04/2025/06/04/20 25 [id number] Ambulatory Building:[facility] 05/28/2025/05/28/20 25 [id number] Ambulatory Building:[facility] 05/22/2025/05/22/20 25 [id number] Ambulatory Building:[facility] 05/14/2025/05/14/20 25 [id number] Ambulatory Building:[facility] 05/13/2025/05/13/20 25 [id number] Ambulatory Buildin 4 [facility] 04/30/2025/04/30/20 25 [id number] Ambulatory Building:NOM S [facility] OB [facility] 04/25/2025/04/25/20 25 [id number] Ambulatory Building:[facility] 04/11/2025/04/11/20 [id number] Ambulatory Building:N[facility] S [facility] 03/14/2025/03/14/20 [id number] Ambulatory Building:N[facility] S [facility] OB [facility] 02/20/2025/02/21/20 [id number] Ambulatory Building:[facility] 01/14/2025/01/15/20 [id number] Ambulatory Building:[facility] 12/14/2024/12/15/19 25 [id number] Ambulatory Building:[facility] S [facility] EP[facility] 12/14/2024/12/15/19 25 [id number] Ambulatory Building:[facility] EP[facility] 08/20/2024/08/20/20 24 [id number] Ambulatory Building:[facility] S [facility] 08/10/2024/08/10/20 24 [id number] [facility]enzie [facility] 08/06/2024/08/06/20 24 [id number] Ambulatory Building:N[facility] S [facility] OB [facility] EPIC 06/29/2024/06/29/20 24 [id number] Ambulatory Building:N[facility] S [facility] EPIC PAYERS ENCOUNTER GUARANTOR PAYER SUBSCRIBER SOURCE 06/26/2025 VIMAL CARDONAB: [place], [place] [address]Vbz: () Primary Insurance:BCBSPolicy Number: [id number] Date:2021-09-26 DEVEN CARDONAB: [id number] [place] [address] [facility] EP[facility] 06/26/2025 Secondary Insurance:[facility] MEDICAIDPolicy Number: [id number] Date:2023-01-24 VIMAL CARDONAB: [id number] [place] [address] [facility] EPIC 06/24/2025 VIMAL CARDONAB: [place], [place] [address]Hko: (HP) (WP) Primary Insurance:BLUE ACCESS (PPO)Policy Number: [id number] Date:2024-09-26 DEVEN CARDONAB: [id number] [place], [place] [address]Ygm: (WP) [facility] 06/24/2025 Secondary Insurance:[place] MEDICAIDPolicy Number: [id number] Date:2024-12-25 VIMAL CARDONAB: [id number] [place], [place] [address]Axq: (HP) [facility] 06/19/2025 VIMAL CARDONAB: [place], [place] [address]Ztv: (HP) Primary Insurance:BCBSPolicy Number: [id number] Date:2021-09-26 DEVEN CARDONAB: [id number] [place] [address] [facility] 06/19/2025 Secondary Insurance:[facility] MEDICAIDPolicy Number: [id number] Date:2023-01-24 VIMAL CARDONAB: [id number] [place] [address] [facility] 06/18/2025 VIMAL CARDONAB: [place], [place] [address]Kqy: (HP) (WP) Primary Insurance:BLUE ACCESS (PPO)Policy Number: [id number] Date:2024-09-26 DEVEN CARDONAB: [id number] [place], [place] [address]Kea: (WP) [facility] 06/18/2025 Secondary Insurance:[place] MEDICAIDPolicy Number: [id number] Date:2024-12-25 VIMAL CARDONAB: [id number] [place], [place] [address]Yma: (HP) [facility] 06/12/2025 VIMAL CARDONAB: [place], [place] [address]Orp: (HP) Primary Insurance:BCBSPolicy Number: [id number] Date:2021-09-26 DEVEN CARDONAB: [id number] [place] [id number] [facility] 06/12/2025 Secondary Insurance:[facility] MEDICAIDPolicy Number: [id number] Date:2023-01-24 VIMAL CARDONAB: [id number] [place] [id number] [facility] 06/11/2025 VIMAL CARDONAB: [place], [place] [address]Xhq: (HP) (WP) Primary Insurance:BLUE ACCESS (PPO)Policy Number: [id number] Date:2024-09-26 DEVEN CARDONAB: [id number] [place], [place] [address]Jxq: (WP) [facility] 06/11/2025 Secondary Insurance:[place] MEDICAIDPolicy Number: [id number] Date:2024-12-25 VIMAL CARDONAB: [id number] [place], [place] [address]Iyb: (HP) [facility] 06/04/2025 VIMAL CARDONAB: [place], [place] [address]Ojg: (HP) (WP) Primary Insurance:BLUE ACCESS (PPO)Policy Number: [id number] Date:2024-09-26 DEVEN CARDONAB: [id number] [place], [place] [address]Zkv: (WP) [facility] 06/04/2025 Secondary Insurance:[place] MEDICAIDPolicy Number: [id number] Date:2024-12-25 VIMAL CARDONAB: [id number] [place], [place] [address]Bcx: (HP) [facility] 06/04/2025 VIMAL CARDONAB: [place], [place] [address]Zrz: (HP) (WP) Primary Insurance:BLUE ACCESS (PPO)Policy Number: [id number] Date:2024-09-26 DEVEN CARDONAB: [id number] [place], [place] [address]Lua: (WP) [facility] 06/04/2025 Secondary Insurance:[place] MEDICAIDPolicy Number: [id number] Date:2024-12-25 VIMAL CARDONAB: [id number] [place], [place] [address]Dpp: (HP) [facility] 05/28/2025 VIMAL CARDONAB: [place], [place] [address]Ths: (HP) Primary Insurance:BCBSPolicy Number: [id number] Date:2021-09-26 DEVEN CARDONAB: [id number] [place] [address] [facility] 05/28/2025 Secondary Insurance:[facility] MEDICAIDPolicy Number: [id number] Date:2023-01-24 VIMAL Kyler JANAANDDOB: [id number] [address] [facility] EPIC 05/22/2025 VIMAL Kyler JANAANDDOB: [place] [id number]: (HP) Primary Insurance:BCBSPolicy Number: [id number] Date:2021-09-26 DEVEN FUNESDOB: [id number] [address] [facility] 05/22/2025 Secondary Insurance:[facility] MEDICAIDPolicy Number: [id number] Date:2023-01-24 VIMAL FUNESDOB: [id number] [address] [facility] EPIC 05/14/2025 VIMAL BATESANDDOB: [place], [place] [address]Qci: (HP) Primary Insurance:BCBSPolicy Number: [id number] Date:2021-09-26 DEVEN FUNESDOB: [id number] [address] [facility] 05/14/2025 Secondary Insurance:[facility] MEDICAIDPolicy Number: [id number] Date:2023-01-24 VIMAL Kyler JANAANDDOB: [id number] [address] [facility] EPIC 05/13/2025 VIMAL BATESANDDOB: [place], [place] [address]Uwo: (HP) (WP) Primary Insurance:[place] MEDICAIDPolicy Number: [id number] Date:2024-12-25 VIMAL FUNESDOB: [id number] [place], [place] [address]Lli: (HP) [facility] 05/13/2025 Secondary Insurance:BLUE ACCESS (PPO)Policy Number: [id number] Date:2024-09-26 DEVEN FUNESDOB: [id number] [place], [place] [address]Qxv: () [facility] 04/30/2025 VIMAL FUNESDOB: [place], [place] [address]Zdy: () Primary Insurance:BCBSPolicy Number: [id number] Date:2021-09-26 DEVEN CARDONAB: [id number] [place] [id number] [facility] EPIC 04/30/2025 Secondary Insurance:[facility] MEDICAIDPolicy Number: [id number] Date:2023-01-24 VIMAL FUNESDOB: [id number] [place] [id number] [facility] EPIC 04/25/2025 VIMAL FUNESDOB: [place], [place] [address]Iis: () Primary Insurance:BCBSPolicy Number: [id number] Date:2021-09-26 DEVEN FUNESDOB: [id number] [place] [address] [facility] 04/25/2025 Secondary Insurance:[facility] MEDICAIDPolicy Number: [id number] Date:2023-01-24 VIMAL FUNESDOB: [id number] [place] [id number] [facility] EPIC 04/11/2025 VIMAL CARDONAB: [place], [place] [address]Soo: (HP) Primary Insurance:BCBSPolicy Number: [id number] Date:2021-09-26 DEVEN FUNESDOB: [id number] [place] [id number] [facility] EPIC 04/11/2025 Secondary Insurance:[facility] MEDICAIDPolicy Number: [id number] Date:2023-01-24 VIMAL FUNESDOB: [id number] [address] [facility] EPIC 03/14/2025 VIMAL CARDONAB: [place], [place] [address]Tel: (HP) Primary Insurance:BCBSPolicy Number: [id number] Date:2021-09-26 DEVEN FUNESDOB: [id number] [address] [facility] 03/14/2025 Secondary Insurance:[facility] MEDICAIDPolicy Number: [id number] Date:2023-01-24 VIMAL CARDONAB: [id number] [address] [facility] 02/20/2025 VIMAL CARDONAB: [place], [place] [address]Cwr: (HP) Primary Insurance:BCBSPolicy Number: [id number] Date:2021-09-26 DEVEN CARDONAB: [id number] [address] [facility] 02/20/2025 Secondary Insurance:[facility] MEDICAIDPolicy Number: [id number] Date:2023-01-24 VIMAL CARDONAB: [id number] [address] [facility]IC 01/14/2025 VIMAL FUNESDOB: [place], [place] [address]Nrq: (HP) Primary Insurance:BCBSPolicy Number: [id number] Date:2021-09-26 DEVEN FUNESDOB: [id number] [place] [id number] [facility] 01/14/2025 Secondary Insurance:[facility] MEDICAIDPolicy Number: [id number] Date:2023-01-24 VIMAL FUNESDOB: [id number] [address] [facility] 12/14/2024 VIMAL FUNESDOB: [place] [id number]: (HP) Primary Insurance:BCBSPolicy Number: [id number] Date:2021-09-26 DEVEN FUNESDOB: [id number] [address] [facility] 12/14/2024 Secondary Insurance:[facility] MEDICAIDPolicy Number: [id number] Date:2023-01-24 VIMAL FUNESDOB: [id number] [address] [facility] 12/14/2024 VIMAL FUNESDOB: [place] [id number]: (HP) Primary Insurance:BCBSPolicy Number: [id number] Date:2021-09-26 DEVEN FUNESDOB: [id number] [address] [facility] 12/14/2024 Secondary Insurance:[facility] MEDICAIDPolicy Number: [id number] Date:2023-01-24 VIMAL FUNESDOB: [id number] [place] [address] [facility] 08/20/2024 VIMAL FUNESDOB: [place], [place] [address]Dzn: (HP) Primary Insurance:BCBSPolicy Number: [id number] Date:2021-09-26 DEVEN FUNESDOB: [id number] [place] [id number] [facility] 08/20/2024 Secondary Insurance:[facility] MEDICAIDPolicy Number: [id number] Date:2023-01-24 VIMAL FUNESDOB: [id number] [place] [id number] [facility] 08/10/2024 Vimal Funes4287 [place] [address]Knp: (HP) Primary Insurance:Self PayPolicy Number: Effective Date:2024-08-10 NOT [facility] 08/06/2024 VIMAL CARDONAB: [place], [place] [address]Uxb: (HP) Primary Insurance:BCBSPolicy Number: [id number] Date:2021-09-26 DEVEN FUNESDOB: [id number] [place] [address] [facility] 08/06/2024 Secondary Insurance:[facility] MEDICAIDPolicy Number: [id number] Date:2023-01-24 VIMAL FUNESDOB: [id number] [place] [id number] [facility] EP[facility] 06/29/2024 VIMAL CARDONAB: [place], [place] [address]Rnh: (HP) Primary Insurance:BCBSPolicy Number: [id number] Date:2021-09-26 DEVEN CARDONAB: [id number] [place] [id number] [facility] 06/29/2024 Secondary Insurance:[facility] [facility] MEDICAIDPolicy Number: [id number] Date:2023-01-24 VIMAL XIE: [id number] [place], [place] [address] [place] [address] [facility] EPIC
[2025-06-26 10:34] VITALS: BP 145/74; PULSE 79
== END 2025-06-26 11:20 | disposition home or self-care (01) ==
LOC: FBCO 10:14 → FBC 10:29
PROVIDERS: PCP Nurse Practitioner Family; Visit Provider Obstetrics & Gynecology
DX: O24.419 Gestational diabetes mellitus in pregnancy, unspecified control (principal)
CPT/HCPCS: 59025; 87081

== ENCOUNTER 2025-06-26 20:11 | Outpatient (REF) | payer BC, OTHER, SELFPAY ==
--- OUTSIDE RECORDS SUMMARY | 2025-06-11 07:48 | XMS_ITS | Encounter Summary ---
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 Farmworker Name Role Phone Unavailable Primary Care Provider Unavailabl e Reason for Referral * Diagnostic Imaging (Routine) - Pending Review Specialty Diagnoses / Procedures Referred By Ashly thomson Referred To Contact Maternal and Medicine Diagnoses Poor growth affecting management of mother in third trimester, single or unspecified fetus Gestational diabetes mellitus (GDM) in third trimester, gestational diabetes method of control unspecified Procedures US [facility] with or without consult Chris Martin MD [address], [address] [place] [address] Phone: tel: fax: Maternal- Medicine at [place] [address] [place] [address] Phone: tel: fax: Referral ID Status Reason Start Date Expiration Date V isits Requested Visits Authorized [id number] Pending Review 06/04/2025 06/04/2026 1 1 Reason [...] consult Chris Martin MD [address], [address] [place] [address] Phone: tel: fax: Maternal- Medicine at [facility] [address] [place] [address] Phone: tel: fax: Referral ID Status Reason Start Date Expiration Date V isits Requested Visits Authorized [id number] Pending Review 06/04/2025 06/04/2026 1 1 Encounter Details Date Type Department Care Team (Latest Contact Info) Description 06/11/2025 7:48 AM EDT - 06/11/2025 11:59 PM EDT Hospital Encounter [facility] - [facility] US Imaging [address] [place] [address] Poor growth affecting management of [...] Care Team (Late st Contact Info) Description 07/02/2025 3:30 PM EDT Appointment [facility] - [facility] US Imaging [address] [place] [address] documented as of this encounter [...] 8:39 AM EDT) Anatomical Region Laterality Modality OB-SEWING MACHINE REPAIRER Ultrasound 06/11/2025 8:10 AM EDT Narrative 06/11/2025 10:28 AM EDT NAME: JERICA CELIS : 2000 SEX: F Accession Number: [id number] ORDERING PHYSICIAN: CHRIS MARTIN REFERRING PHYSICIAN: MACKENZIE SANDERSON Coding ----- --------- Procedures 74182: Limited OB / DANYA, 1 or More Fetuses 97810: Doppler velocimetry, ; umbilical artery Indication ----- [...] today's exam. Recommendations ----- --------- Please see [facility] recommendations from prior clinical and/or [...] CELIS : 2000 SEX: F Accession Number: [id number] ORDERING PHYSICIAN: CHRIS MARTIN REFERRING PHYSICIAN: MACKENZIE SANDERSON Coding ----- --------- Procedures 44707: Limited OB / DANYA, 1 or More Fetuses 54175: Doppler velocimetry, ; umbilical artery Indication ----- [...] today's exam. Recommendations ----- --------- Please see [facility] recommendations from prior clinical and/or [...] thepatient as necessary. us Chris Martin MD [facility] ORDERABLES Final Resul t documented in this encounter Visit Diagnoses Diagnosis Poor growth affecting management of mother in third trimester, single or unspecified fetus Gestational diabetes mellitus (GDM) in third trimester, gestational diabetes method of control unspecified documented in this encounter
--- OUTSIDE RECORDS SUMMARY | 2025-06-12 15:00 | XMS_ITS | Encounter Summary ---
Author Organization [facility] Address [address] [place] [address] Care Team Providers Care In House Cra Name Role Phone Unallocated, Noms Provider Primary Care Provi krissy Reason for Visit * Reason Comments Routine Visit Encounter Details Date Type Department Care Team (Late st Contact Info) Description 06/12/2025 3:00 PM EDT Routine ARJUN [place] OB[facility]ICHO [address] [facility] [place] [address] Rossana Ramos PA [address] [place], [facility]11 Third trimester ([facility]); 34 weeks gestation of ([facility]) Social History Tobacco Use Types Packs/Day [...] to check FSBS. Blood Glucose Monitoring Suppl (Synthelis Glucometer) w/Device kit 1 kit, Does not [...] Problems Diagnosis Date Noted induced hypertension, antepartum ([facility]) 05/28/2025 Gestational diabetes mellitus (GDM), antepartum ([facility]) 05/28/2025 Resolved Ambulatory Problems Diagnosis Date Noted No Resolved Ambulatory Problems Past Medical History: Diagnosis Date Anemia Gestational diabetes ([facility]) History of blood transfusion Lead poisoning Miscarriage ([facility]) Nonsmoker Post depression HISTORY PAST MEDICAL HISTORY SOCIAL HISTORY Past Medical History: Diagnosis Date Anemia Gestational diabetes ([facility]) History of blood transfusion Lead poisoning Miscarriage ([facility]) Nonsmoker Post depression /anxiety Social History [...] ASSESSMENT & PLAN ICD-10-CM 1. Third trimester ([facility]) Z34.93 POCT urinalysis dipstick manually resulted 2. 34 weeks gestation of ([facility]) Z3A.34 POCT urinalysis dipstick manually resulted [...] Care Team (Late st Contact Info) Description 07/04/2025 9:40 AM EDT Routine [facility] [address] [facility] [place] [address] Megan Aranda, CNC OPERATOR MACHINIST [address] [facility] [address] [place] [place] [address] documented as of this encounter Procedures Procedure Name Priority Date/Time Associated Diagnosis Comments POCT URINALYSIS DIPSTICK Routine 06/12/2025 3:32 PM EDT Third trimester ([facility]) 34 weeks gestation of ([facility]) documented in this encounter Results * (ABNORMAL) [...] Positive Urine 06/12/2025 3:32 PM EDT Jose Michael DO POINT OF CARE TEST ENTER/EDIT OR DERABLES Final Result documented in this encounter Visit Diagnoses Diagnosis Third trimester ([facility]) state, incidental 34 weeks gestation of ([facility]) documented in this encounter Care Teams In House Cra Relationship Specialty Start Date End Date Unallocated, Noms MD [address] [place], [place] [id number] PCP - General Family Medicine 11/8/24 documented as of this encounter
--- OUTSIDE RECORDS SUMMARY | 2025-06-18 15:28 | XMS_ITS | Encounter Summary ---
Author Organization [facility] tem Address [facility] [place]-W[address] [address] [place] [address] Care Team Providers Care Demolitionist Name Role Phone Unavailable Primary Care Provider Unavailabl e Reason for Referral * Diagnostic Imaging (Routine) - Pending Review Specialty Diagnoses / Procedures Referred By Richaac t Referred To Contact Maternal and Medicine Diagnoses Intrauterine growth restriction affecting care of mother, unspecified trimester, not applicable or unspecified fetus Procedures US MFM with or without consult Maria Luisa Patel MD [address], [address] [place] [address] Phone: tel: fax: Maternal- Medicine at [address] [address] Phone: tel: fax: Referral ID Status Reason Start Date Expiration Date V isits Requested Visits Authorized [id number] Pending Review 06/17/2025 06/17/2026 1 1 Reason for Visit * Diagnostic Imaging (Routine) - Pending Review Specialty Diagnoses / Procedures Referred By Contac t Referred To Contact Maternal and Medicine Diagnoses Intrauterine growth restriction affecting care of mother, unspecified trimester, not applicable or unspecified fetus Procedures US MFM with or without consult Maria Luisa Patel MD [address], [address] [place] [address] Phone: tel: fax: Maternal- Medicine at [facility] [address] [place] [address] Phone: tel: fax: Referral ID Status Reason Start Date Expiration Date V isits Requested Visits Authorized [id number] Pending Review 06/17/2025 06/17/2026 1 1 Encounter Details Date Type Department Care Team (Latest Contact Info) Description 06/18/2025 3:28 PM EDT - 06/18/2025 11:59 PM EDT Hospital Encounter [facility] US Imaging [address] [place] [address] Intrauterine growth restriction affecting care [...] Info) Description 07/02/2025 3:30 PM EDT Appointment [facility] US Imaging [address] [place] [address] documented as of this encounter Procedures Procedure Name Priority Date/Time Associated Diagnosis Comments US MFM AMNIOTIC FLUID VOLUME ASSESSMENT Routine 06/18/2025 4:50 PM EDT Intrauterine growth restriction affecting care of mother, unspecified trimester, not applicable or unspecified fetus documented in this encounter Results * US MFM AMNIOTIC FLUID VOLUME ASSESSMENT (06/18/2025 4:50 PM EDT) Anatomical Region Laterality Modality OB-COMPUTER ENGINEERING TECHNOLOGIST Ultrasound 06/18/2025 4:12 PM EDT Narrative 06/18/2025 5:44 PM EDT NAME: JERICA CELIS : 2000 SEX: F Accession Number: [id number] ORDERING PHYSICIAN: MARIA LUISA PATEL REFERRING PHYSICIAN: MACKENZIE SANDERSON Coding ----- --------- Procedures 87591: Ultrasound, uterus, real time with image documentation, limited one or more fetuses 51260: Doppler velocimetry, ; umbilical artery Indication ----- [...] CELIS : 2000 SEX: F Accession Number: [id number] ORDERING PHYSICIAN: MARIA LUISA PATEL REFERRING PHYSICIAN: MACKENZIE SANDERSON Coding ----- --------- Procedures 27424: Ultrasound, uterus, real time with imagedocumentation, limited one or more fetuses 40611: Doppler velocimetry, ; umbilical artery Indication ----- [...] as necessary us Maria Luisa Patel MD [facility] [place] US ORDERABLES Final Re sult documented in this encounter Visit Diagnoses Diagnosis Intrauterine growth restriction affecting care of mother, unspecified trimester, not applicable or unspecified fetus documented in this encounter
--- OUTSIDE RECORDS SUMMARY | 2025-06-19 14:40 | XMS_ITS | Encounter Summary ---
Author Organization [facility] Address [address] [place] [address] Care Team Providers Care Timber Management Specialist Name Role Phone Unallocated, Noms Provider Primary Care Provi krissy Reason for Visit * Reason Comments Routine Visit Encounter Details Date Type Department Care Team (Late st Contact Info) Description 06/19/2025 2:40 PM EDT Routine ARJUN [place] [facility] [address] [place] [address] Jose Rodriguez DO [address] Josué [place], [facility] Third trimester ([facility]); 35 weeks gestation of ([facility]); Diet controlled gestational diabetes mellitus (GDM), antepartum ([facility]); induced hypertension, antepartum ([facility]) Social History Tobacco Use Types Packs/Day Years [...] Sign Reading Time Taken Comments Blood Pressure 142/86 06/19/2025 3:04 PM EDT Pulse - - Temperature - - Respiratory Rate - - Oxygen Saturation - - Inhaled Oxygen Concentration - - Weight 81.6 kg (180 lb) 06/19/2025 3:04 PM EDT Height - - Body Mass Index 31.89 01/06/2023 12:00 PM EDT documented in this encounter Progress Notes * Meghana Felder LPN - 06/19/2025 2:40 PM EDT Reason for Appointment: Patient ID: Amber Funes is a 25 y.o. female who presents for Routine Visit Patient presents today for Return OB appointment. MEDICATIONS Current Outpatient Medications Medication Instructions Alcohol Swabs (Alcohol Prep Pad) 70 % pads 1 Pad, Topical, Daily, Use four times daily to check FSBS. Blood Glucose Monitoring Suppl (Ohmconnect-MassBioEd Glucometer) w/Device kit 1 kit, Does not [...] History of blood transfusion Lead poisoning Miscarriage ([facility]) Nonsmoker Post depression HISTORY PAST MEDICAL HISTORY SOCIAL HISTORY Past Medical History: Diagnosis Date Anemia Gestational diabetes ([facility]) History of blood transfusion Lead poisoning Miscarriage ([facility]) Nonsmoker Post depression /anxiety Social [...] nursing note reviewed. Exam conducted with a teachers' aide present. Vitals: Estimated body mass index is 31.89 kg/m?? as calculated from the following: Height as of 01/06/23: 5' 3 . Weight as of this encounter: 180 lb. BP: 142/86 Patient's last menstrual period was 10/15/2024 (exact date). ASSESSMENT & PLAN ICD-10-CM 1. Third trimester ([facility]) Z34.93 POCT urinalysis dipstick manually resulted 2. 35 weeks gestation of ([facility]) Z3A.35 3. Diet controlled gestational diabetes mellitus (GDM), antepartum ([facility]) O24.410 4. induced hypertension, antepartum ([facility]) O13.9 Return OB: Patient presents today for a routine obstetrics appointment. Patient is currently 35w2d . Patient states she is doing well but has complaints of being tired due to current . Patient has verbalizes frequent movement. labor precautions was discussed/given and patient was instructed to perform kick counts three times a day. Pt still on blood pressure medications and checking blood sugars. Pt to come off work. Orders Placed This Encounter Procedures POCT urinalysis [...] AM EDT Routine [facility] [address] [place] [address] Megan Aranda NP [address] [place] [id number] documented as of this encounter Procedures Procedure Name Priority Date/Time Associated Diagnosis Comments POCT URINALYSIS DIPSTICK Routine 06/19/2025 3:05 PM EDT Third trimester ([facility]) documented in this encounter Results * (ABNORMAL) POCT urinalysis dipstick manually resulted (06/19/2025 3:05 PM EDT) Color, UA Yellow Clarity, UA Cloudy Glucose, UA 1+ Negative - 2000(110) ++++ mg/dL Bilirubin, UA Negative Negative - 4(70) +++ mg/dL Ketones, UA Negative Negative - 160(16) ++++ mg/dL Spec Grav, UA 1.015 1 - 1.03 Blood, UA Negative Negative - 50 Jason/mcL pH, UA 6.0 5 - 9 Protein, UA 1+ Negative - 2000(20) ++++ mg/dL Urobilinogen, UA 1.0 0.2 - 12 mg/dL Leukocytes, UA Negative Negative - 500+++ Carlos/mcL Nitrite, UA Negative Negative - Positive Urine 06/19/2025 3:05 PM EDT us Jose Rodriguez DO POINT OF CARE TEST ENTER/EDIT OR DERABLES Final Result documented in this encounter Visit Diagnoses Diagnosis Third trimester ([facility]) state, incidental 35 weeks gestation of ([facility]) Diet controlled gestational diabetes mellitus (GDM), antepartum ([facility]) induced hypertension, antepartum ([facility]) Transient hypertension of , antepartum documented in this encounter Care Teams Timber Management Specialist Relationship Specialty Start Date End Date Unallocated, Noms Provider, [place] [address] PCP - General Family Medicine 08/03/24 documented as of this encounter
--- OUTSIDE RECORDS SUMMARY | 2025-06-26 09:05 | XMS_ITS ---
Author Name Auto Generated Organization OHIP Support Name Relationship Address Phone JOSSUEASIAI Next of Kin Unknown + ERWIN AUSTIN Next of Kin Unknown [phone] GEOVANNA FUNES Next of Kin Unknown [phone] JOSSUE RAMANA Next of Kin Unknown Unavailable JOSSUEASIAI Next of Kin Unknown + ERWIN [place] Next of Kin Unknown [phone] GEOVANNA FUNES Next of Kin Unknown [phone] JOSSUE RAMANA Next of Kin Unknown Unavailable JOSSUEASIAI Next of Kin Unknown + ERWIN [place]UST[place] Next of Kin Unknown [phone] GEOVANNA FUNES Next of Kin Unknown [phone] JOSSUE RAMANA Next of Kin Unknown Unavailable JOSSUEASIAI Next of Kin Unknown Unavailable JOSSUEASIAI Next of Kin Unknown Unavailable AISA MARCUMI Next of Kin Unknown + ERWIN [place] Next of Kin Unknown [phone] GEOVANNA FUNES Next of Kin Unknown [phone] ASAI MARCUMI Next of Kin Unknown + ERWIN [place] Next of Kin Unknown [phone] GEOVANNA FUNES Next of Kin Unknown [phone] ASIA MARCUMI Next of Kin Unknown + ERWIN [place] Next of Kin Unknown [phone] GEOVANNA FUNES Next of Kin Unknown [phone] ASIA MARCUMI Next of Kin Unknown [...] 41 FUNESMAGDAIG Next of Kin Unknown [phone] COOK, RAMANA Next of Kin Unknown + GEOVANNA, ERWIN Next of Kin Unknown [phone] FUNESMAGDA BAUERIG Next of Kin Unknown [phone] COOK, RAMANA Next of Kin Unknown + GEOVANNA, ERWIN Next of Kin Unknown [phone] FUNESMAGDA BAUERIG Next of Kin Unknown [phone] COOK, RAMANA Next of Kin Unknown + GEOVANNA, ERWIN Next of Kin Unknown [phone] FUNES, GEOVANNA Next of Kin Unknown [phone] COOK, RAMANA Next of Kin Unknown + GEOVANNA FUNES Next of Kin Unknown [phone] Deven Funes Next of Kin [address] [place] [address] + JOSSUE RAMANA Next of Kin Unknown + GEOVANNA FUNES Next of Kin Unknown [phone] COOK, RAMANA Next of Kin Unknown + GEOVANNA FUNES Next of Kin Unknown [phone] Care Team Providers Care Package Line Operator Name Role Phone NO FAMILY, PHYSICIAN Primary Care Unavailable Michael, Mackenzie Attending Unavailable Michael, Mackenzie Admitting Unavailable IRLANDA LONDON Attending Unavailable MICHAEL, MACKENIZE R Referring Unavailable MICHAEL, MACKENZIE R Attending Unavailable MICHAEL, MACKENZIE R Referring Unavailable MARIOMANAS Nair Attending Unavailable MICHAEL, MACKENZIE R Referring Unavailable MICHAEL, MACKENZIE R Referring Unavailable MICHAEL, MACKENZIE R Referring Unavailable MICHAEL, MACKENZIE R Referring Unavailable MICHAEL, MACKENZIE Attending Unavailable HAYLEE, COLLIN Attending Unavailable MICHAEL, MACKENZIE Attending Unavailable HAYLEE, COLLIN Attending Unavailable HAYLEE, COLLIN Attending Unavailable HAYLEE, COLLIN Attending Unavailable MICHAEL, MACKENZIE Attending Unavailable MICHAEL, MACKENZIE Attending Unavailable MICHAEL, MACKENZIE Attending Unavailable HAYLEE, COLLIN Attending Unavailable MICHAEL, MACKENZIE Attending Unavailable NIMESH POWER Attending Unavailable MICHAEL, MACKENZIE Attending Unavailable HAYLEE, COLLIN Attending Unavailable PROBLEMS DATE TYPE CONDITION / CODE ATTENDING STATUS [facility] 06/18/2025 Unknown Maternal care fo r other known or suspected poor growth, unspecified trimester, not applicable or unspecified / O36.5990(ICD-10) [facility] 06/04/2025 Unknown Maternal care fo r other known or suspected poor growth, third trimester, not applicable or unspecified / O36.5930(ICD-10) MANAS MARTIN [facility] 06/04/2025 Unknown Encounter for ot her specified screening / Z36.89(ICD-10) THALIA RODRIGUEZY R [facility] 05/13/2025 Unknown Gestational diab etes mellitus in , unspecified control / O24.419(ICD-10) IRLANDA LONDON [facility] 05/13/2025 Unknown Gestational Diab etes / FREETEXT(AOF) IRLANDA LONDON [facility] PROCEDURES No Procedure Records Found RESULTS US OB TRANSVAGINAL Observed: 12/14/2024 8:26 AM Status: F Source: [facility] EPIC Order Comment: US OB [...] II, MD, PHD at 14-Dec-2024 08:35:59 PM [facility] L Observed: 08/10/2024 10:02 AM Status: F Source: [facility] ----- ------- Specimen: [id number] Received: 08/10/24 Status: CAROL Hoang Num: [id number] Spec Type: Surgical Subm Dr: Mackenzie Rodriguez Tissues: A Products of Conception - Spontaneous or Missed (CONTENTS OF CONCEPT Procedures: HE/2, Gross/Micro L4 ----- ------- Age/ Patient Sex Location Account Attending Physician ----- ------- Vimal Funes LABELL [id number] Mackenzie Rodriguez ----- ------- SPEC NUM: [id number] RECD: 08/10/24 STATUS: CAROL HOANG NUM: [id number] CAROLIN: 08/10/24-[address] [facility] [address]: Mackenzie Rodriguez ENTERED: 08/10/24 [facility] DR: Vignesh Morataya SPEC TYPE: Surgical DEPT: MONICA ALTMAN ENTERED BY: [id number] RECV BY: [id number] ORDERED: HE/2, Gross/Micro L4 ORDERED: HE/2, Gross/Micro [...] villi and decidua. No tissue is identified. [employer] Sales Counter Manager sections of the chorionic villi are submitted in cassette A1 with sales representative trainee sections of the decidua is submitted in cassette A2. (2, ss, [id number]) CPT Codes 06614 ----- ------- ----- ------- Specimen: [id number] Received: 08/10/24 Status: CAROL Hoang Num: [id number] Spec Type: Surgical Subm Dr: Mackenzie Rodriguez Tissues: A Products of Conception - Spontaneous or Missed (CONTENTS OF CONCEPT Procedures: HE/2Odell/Agusto L4 ----- ------- Patient: Vimal Funes [id number] (Continued) ----- ------- Signed (signature on file) Josh Aragon MD 08/13/24 1647 ALLERGIES DATE TYPE / CODE NAME / CODE REACTION SEVERITY SOURCE Drug Class/[id number](SNO MED CT) NO KNOWN ALLERGIES [facility] ENCOUNTERS ADMIT/DISCHARGE ACCOUNT NUMBER ADMITTING ENCOUNTER CLASS LOCATION SOURCE 06/26/2025/06/26/20 [id number] Ambulatory Building:NOM S B[facility] OB [facility] 06/24/2025/06/25/20 25 [id number] Ambulatory Buildin 10 [facility] 06/19/2025/06/19/20 25 [id number] Ambulatory Building:NOM S BCP OB [facility] 06/18/2025/06/18/20 25 [id number] Ambulatory Building:[facility] 06/12/2025/06/12/20 [id number] Ambulatory Building:NOM S [facility] OB [facility] 06/11/2025/06/11/20 25 [id number] Ambulatory Building:PTH _[facility] 06/04/2025/06/04/20 25 [id number] Ambulatory Buildin 4 [facility] 06/04/2025/06/04/20 25 [id number] Ambulatory Building:[facility] 05/28/2025/05/28/20 25 [id number] Ambulatory Building:NOM S [facility] OB [facility] 05/22/2025/05/22/20 25 [id number] Ambulatory Building:NOM S [facility] OB [facility] 05/14/2025/05/14/20 25 [id number] Ambulatory Building:NOM S [facility] OB [facility] 05/13/2025/05/13/20 25 [id number] Ambulatory Buildin 4 [facility] 04/30/2025/04/30/20 25 [id number] Ambulatory Building:NOM S [facility] OB [facility] 04/25/2025/04/25/20 25 [id number] Ambulatory Building:NOM S [facility] OB [facility] 04/11/2025/04/11/20 [id number] Ambulatory Building:NOM S [facility] 03/14/2025/03/14/20 [id number] Ambulatory Building:NOM S [facility] 02/20/2025/02/21/20 [id number] Ambulatory Building:NOM S [facility] 01/14/2025/01/15/20 [id number] Ambulatory Building:N[facility] S [facility] 12/14/2024/12/15/19 25 [id number] Ambulatory Building:NOM S [facility] OB [facility] 12/14/2024/12/15/19 25 [id number] Ambulatory Building:NOM S [facility] OB [facility] 08/20/2024/08/20/20 24 [id number] Ambulatory Building:NOM S [facility] OB [facility] 08/10/2024/08/10/20 24 [id number] [facility] 08/06/2024/08/06/20 24 [id number] Ambulatory Building:NOM S [facility] OB [facility] 06/29/2024/06/29/20 24 [id number] Ambulatory Building:NOM S [facility] OB [facility] PAYERS ENCOUNTER GUARANTOR PAYER SUBSCRIBER SOURCE 06/26/2025 VIMAL CARDONAB: [place], [place] [address]Ivy: () Primary Insurance:BCBSPolicy Number: [id number] Date:2021-09-26 DEVEN CARDONAB: [id number] [place] [address] [facility] 06/26/2025 Secondary Insurance:[facility] MEDICAIDPolicy Number: [id number] Date:2023-01-24 VIMAL CARDONAB: [id number] [place] [address] [facility] EPIC 06/24/2025 VIMAL CARDONAB: [place], [place] [address]Ikg: (HP) (WP) Primary Insurance:BLUE ACCESS (PPO)Policy Number: [id number] Date:2024-09-26 DEVEN CARDONAB: [id number] [place], [place] [address]Qip: (WP) [facility] 06/24/2025 Secondary Insurance:[place] MEDICAIDPolicy Number: [id number] Date:2024-12-25 VIMAL CARDONAB: [id number] [place], [place] [address]Ces: (HP) [facility] 06/19/2025 VIMAL CARDONAB: [place], [place] [address]Hfb: (HP) Primary Insurance:BCBSPolicy Number: [id number] Date:2021-09-26 DEVEN CARDONAB: [id number] [place] [address] [facility] 06/19/2025 Secondary Insurance:[facility] MEDICAIDPolicy Number: [id number] Date:2023-01-24 VIMAL CARDONAB: [id number] [place] [address] [facility] 06/18/2025 VIMAL CARDONAB: [place], [place] [address]Ard: (HP) (WP) Primary Insurance:BLUE ACCESS (PPO)Policy Number: [id number] Date:2024-09-26 DEVEN CARDONAB: [id number] [place], [place] [address]Osv: (WP) [facility] 06/18/2025 Secondary Insurance:[place] MEDICAIDPolicy Number: [id number] Date:2024-12-25 VIMAL CARDONAB: [id number] [place], [place] [address]Lfp: (HP) [facility] 06/12/2025 VIMAL CARDONAB: [place], [place] [address]Fjo: (HP) Primary Insurance:BCBSPolicy Number: [id number] Date:2021-09-26 DEVEN CARDONAB: [id number] [place] [id number] [facility] 06/12/2025 Secondary Insurance:[facility] MEDICAIDPolicy Number: [id number] Date:2023-01-24 VIMAL CARDONAB: [id number] [place] [id number] [facility] 06/11/2025 VIMAL CARDONAB: [place], [place] [address]Klr: (HP) (WP) Primary Insurance:BLUE ACCESS (PPO)Policy Number: [id number] Date:2024-09-26 DEVEN CARDONAB: [id number] [place], [place] [address]Rph: (WP) [facility] 06/11/2025 Secondary Insurance:[place] MEDICAIDPolicy Number: [id number] Date:2024-12-25 VIMAL CARDONAB: [id number] [place], [place] [address]Oje: (HP) [facility] 06/04/2025 VIMAL CARDONAB: [place], [place] [address]Ptn: (HP) (WP) Primary Insurance:BLUE ACCESS (PPO)Policy Number: [id number] Date:2024-09-26 DEVEN CARDONAB: [id number] [place], [place] [address]Svo: (WP) [facility] 06/04/2025 Secondary Insurance:[place] MEDICAIDPolicy Number: [id number] Date:2024-12-25 VIMAL CARDONAB: [id number] [place], [place] [address]Dpr: (HP) [facility] 06/04/2025 VIMAL CARDONAB: [place], [place] [address]Lag: (HP) (WP) Primary Insurance:BLUE ACCESS (PPO)Policy Number: [id number] Date:2024-09-26 DEVEN CARDONAB: [id number] [place], [place] [address]Gla: (WP) [facility] 06/04/2025 Secondary Insurance:[place] MEDICAIDPolicy Number: [id number] Date:2024-12-25 VIMAL CARDONAB: [id number] [place], [place] [address]Lgi: (HP) [facility] 05/28/2025 VIMAL CARDONAB: [place], [place] [address]Deh: (HP) Primary Insurance:BCBSPolicy Number: [id number] Date:2021-09-26 DEVEN CARDONAB: [id number] [place] [address] [facility] 05/28/2025 Secondary Insurance:[facility] MEDICAIDPolicy Number: [id number] Date:2023-01-24 VIMAL Kyler JANAANDDOB: [id number] [facility] 05/22/2025 VIMAL Kyler JANAANDDOB: [place] [id number]: (HP) Primary Insurance:BCBSPolicy Number: [id number] Date:2021-09-26 DEVEN FUNESDOB: [id number] [facility] 05/22/2025 Secondary Insurance:[facility] MEDICAIDPolicy Number: [id number] Date:2023-01-24 VIMAL FUNESDOB: [id number] [address] [facility] 05/14/2025 VIMAL BATESANDDOB: [place], [place] [address]Kxd: (HP) Primary Insurance:BCBSPolicy Number: [id number] Date:2021-09-26 DEVEN FUNESDOB: [id number] [address] [facility] 05/14/2025 Secondary Insurance:[facility] MEDICAIDPolicy Number: [id number] Date:2023-01-24 VIMAL Kyler JANAANDDOB: [id number] [address] [facility] 05/13/2025 VIMAL BATESANDDOB: [place], [place] [address]Adn: (HP) (WP) Primary Insurance:[place] MEDICAIDPolicy Number: [id number] Date:2024-12-25 VIMAL FUNESDOB: [id number] [place], [place] [address]Yac: (HP) [facility] 05/13/2025 Secondary Insurance:BLUE ACCESS (PPO)Policy Number: [id number] Date:2024-09-26 DEVEN FUNESDOB: [id number] [place], [place] [address]Xxc: () [facility] 04/30/2025 VIMAL FUNESDOB: [place], [place] [address]Zld: () Primary Insurance:BCBSPolicy Number: [id number] Date:2021-09-26 DEVEN CARDONAB: [id number] [place] [id number] [facility] 04/30/2025 Secondary Insurance:[facility] MEDICAIDPolicy Number: [id number] Date:2023-01-24 VIMAL FUNESDOB: [id number] [place] [id number] [facility] 04/25/2025 VIMAL FUNESDOB: [place], [place] [address]Bgb: () Primary Insurance:BCBSPolicy Number: [id number] Date:2021-09-26 DEVEN FUNESDOB: [id number] [place] [address] [facility] 04/25/2025 Secondary Insurance:[facility] MEDICAIDPolicy Number: [id number] Date:2023-01-24 VIMAL FUNESDOB: [id number] [place] [id number] [facility] 04/11/2025 VIMAL CARDONAB: [place], [place] [address]Zep: (HP) Primary Insurance:BCBSPolicy Number: [id number] Date:2021-09-26 DEVEN FUNESDOB: [id number] [place] [id number] [facility] 04/11/2025 Secondary Insurance:[facility] MEDICAIDPolicy Number: [id number] Date:2023-01-24 VIMAL FUNESDOB: [id number] [address] [facility] 03/14/2025 VIMAL CARDONAB: [place], [place] [address]Tel: (HP) Primary Insurance:BCBSPolicy Number: [id number] Date:2021-09-26 DEVEN FUNESDOB: [id number] [address] [facility] 03/14/2025 Secondary Insurance:[facility] MEDICAIDPolicy Number: [id number] Date:2023-01-24 VIMAL CARDONAB: [id number] [address] [facility] 02/20/2025 VIMAL CARDONAB: [place], [place] [address]Mmu: (HP) Primary Insurance:BCBSPolicy Number: [id number] Date:2021-09-26 DEVEN CARDONAB: [id number] [facility] 02/20/2025 Secondary Insurance:[facility] MEDICAIDPolicy Number: [id number] Date:2023-01-24 VIMAL CARDONAB: [id number] [facility] 01/14/2025 VIMAL FUNESDOB: [place], [place] [address]Asg: (HP) Primary Insurance:BCBSPolicy Number: [id number] Date:2021-09-26 DEVEN FUNESDOB: [id number] [place] [id number] [facility] 01/14/2025 Secondary Insurance:[facility] MEDICAIDPolicy Number: [id number] Date:2023-01-24 VIMAL FUNESDOB: [id number] [address] [facility] 12/14/2024 VIMAL FUNESDOB: [place] [id number]: (HP) Primary Insurance:BCBSPolicy Number: [id number] Date:2021-09-26 DEVEN FUNESDOB: [id number] [address] [facility] 12/14/2024 Secondary Insurance:[facility] MEDICAIDPolicy Number: [id number] Date:2023-01-24 VIMAL FUNESDOB: [id number] [address] [facility] 12/14/2024 VIMAL FUNESDOB: [place] [id number]: (HP) Primary Insurance:BCBSPolicy Number: [id number] Date:2021-09-26 DEVEN FUNESDOB: [id number] [address] [facility] 12/14/2024 Secondary Insurance:[facility] MEDICAIDPolicy Number: [id number] Date:2023-01-24 VIMAL FUNESDOB: [id number] [place] [address] [facility] 08/20/2024 IVMAL FUNESDOB: [place], [place] [address]Ucz: (HP) Primary Insurance:BCBSPolicy Number: [id number] Date:2021-09-26 DEVEN FUNESDOB: [id number] [place] [id number] [facility] 08/20/2024 Secondary Insurance:[facility] MEDICAIDPolicy Number: [id number] Date:2023-01-24 VIMLA FUNESDOB: [id number] [place] [id number] [facility] EP[facility] 08/10/2024 Vimal [id number] [place] [address]Grc: (HP) Primary Insurance:Self PayPolicy Number: Effective Date:2024-08-10 NOT [facility] 08/06/2024 VIMAL CARDONAB: [place], [place] [address]Jnk: (HP) Primary Insurance:BCBSPolicy Number: [id number] Date:2021-09-26 DEVEN FUNESDOB: [id number] [place] [address] [facility] 08/06/2024 Secondary Insurance:[facility] MEDICAIDPolicy Number: [id number] Date:2023-01-24 VIMAL FUNESDOB: [id number] [place] [id number] [facility] 06/29/2024 VIMAL CARDONAB: [place], [place] [address]Amj: (HP) Primary Insurance:BCBSPolicy Number: [id number] Date:2021-09-26 DEVEN CARDONAB: [id number] [place] [id number] [facility] 06/29/2024 Secondary Insurance:[employer] [employer] MEDICAIDPolicy Number: [id number] Date:2023-01-24 VIMAL XIE: [id number] [place], [place] [address] [place] [address] [facility] EPIC
--- OUTSIDE RECORDS SUMMARY | 2025-06-26 09:10 | XMS_ITS | Encounter Summary ---
Author Organization [facility] Address [address] [place] [address] Care Team Providers Care Skin Lap Bonder Name Role Phone Unallocated, Noms Provider Primary Care Provi krissy Reason for Visit * Reason Comments Routine Visit Encounter Details Date Type Department Care Team (Late st Contact Info) Description 06/26/2025 9:10 AM EDT Routine [facility] [place] [facility] [address] [facility] [place] [address] Megan Aranda, VLAD [address] [facility] [address] [place] [address] Third trimester ([facility]); 36 weeks gestation of ([facility]); Diet controlled gestational diabetes mellitus (GDM), antepartum ([facility]); induced hypertension, antepartum ([facility]) Social History Tobacco Use Types [...] to check FSBS. Blood Glucose Monitoring Suppl (D-[employer] Glucometer) w/Device kit 1 kit, Does not [...] Problems Diagnosis Date Noted induced hypertension, antepartum ([facility]) 05/28/2025 Gestational diabetes mellitus (GDM), antepartum ([facility]) 05/28/2025 Resolved Ambulatory Problems Diagnosis Date Noted No Resolved Ambulatory Problems Past Medical History: Diagnosis Date Anemia Gestational diabetes ([facility]) History of blood transfusion Lead poisoning Miscarriage ([facility]) Nonsmoker Post depression HISTORY PAST MEDICAL HISTORY SOCIAL HISTORY Past Medical History: Diagnosis Date Anemia Gestational diabetes ([facility]) History of blood transfusion Lead poisoning Miscarriage ([facility]) Nonsmoker Post depression /anxiety Social [...] nursing note reviewed. Exam conducted with a pharmaceutical physician present. Vitals: Estimated body mass index is 32.06 kg/m?? as calculated from the following: Height as of 01/06/23: 5' 3 . Weight as of this encounter: 181 lb. BP: 138/84 Patient's last menstrual period was 10/15/2024 (exact date). ASSESSMENT & PLAN ICD-10-CM 1. Third trimester ([facility]) Z34.93 POCT urinalysis dipstick manually resulted CULTURE, GROUP B STREP WITH SUSCEPTIBLITY CULTURE, GROUP B STREP WITH SUSCEPTIBLITY 2. 36 weeks gestation of ([facility]) Z3A.36 3. Diet controlled gestational diabetes mellitus (GDM), antepartum ([facility]) O24.410 4. induced hypertension, antepartum ([facility]) O13.9 Patient is doing well but has [...] AM EDT Routine [facility] [place] [facility] [address] [place] [address] Megan Aranda NP [address] [facility] [address] [place] [address] Scheduled Orders Name Type Priority Associated Diagnoses Orde r Schedule CULTURE, GROUP B STREP WITH SUSCEPTIBLITY Lab Routine Third trimester ([facility]) Expected: 06/26/2025, Expires: 06/26/2026 documented as of this encounter Procedures Procedure Name Priority Date/Time Associated Diagnosis Comments POCT URINALYSIS DIPSTICK Routine 06/26/2025 9:32 AM EDT Third trimester ([facility]) documented in this encounter Results * [...] antepartum documented in this encounter Care Teams Skin Lap Bonder Relationship Specialty Start Date End Date Unallocated, Noms Provider, [address] [place] [address] PCP - General Family Medicine 08/03/24 documented as of this encounter
--- OUTSIDE RECORDS SUMMARY | 2025-06-26 20:13 | XMS_ITS | Encounter Summary ---
Author Organization [facility] Address [address] [place] [address] Care Team Providers Care Executive Marketing Assistant Name Role Phone Unallocated, Noms Provider Primary Care Provi krissy Encounter Details Date Type Department Care Team (Late st Contact Info) Description 06/25/2025 Abstract [facility] PANG [address] [place] [address] Kavitha Almanza MA [...] Info) Description 07/04/2025 9:40 AM EDT Routine [facility] PANG [address] [place] [address] Megan Aranda, VLAD [address] [place] [address] documented as of this encounter Visit Diagnoses Not on filedocumented in this encounter Care Teams Executive Marketing Assistant Relationship Specialty Start Date End Date Unallocated, Noms Provider, [address] [place] [address] PCP - General Family Medicine 08/03/24 documented as of this encounter
--- OUTSIDE RECORDS SUMMARY | 2025-06-26 20:13 | XMS_ITS | Encounter Summary ---
Author Organization [facility] Address [address] [place] [address] Care Team Providers Care Anesthesiologist Name Role Phone Unallocated, Noms Provider Primary Care Provi krissy Encounter Details Date Type Department Care Team (Late st Contact Info) Description 06/22/2025 Clinisync Result Encounter N[facility] External Department Unsolicited Collin Leach PA [address] [facility] [address] [place], [facility]11 Social [...] AM EDT Routine [facility] [place] [facility] [address] [place] [address] Megan Aranda, PAINT FORMULATOR [address] [facility] [facility] [address] [place] [place] [address] documented as of this encounter Procedures Procedure Name Priority Date/Time Associated Diagnosis Comments US OB BPP W NON-STRESS 06/22/2025 7:28 PM EDT documented in this encounter Results * US OB BPP W NON-STRESS (06/22/2025 7:28 PM EDT) Anatomical Region Laterality Modality Other 06/22/2025 7:28 PM EDT Narrative 06/22/2025 7:31 PM EDT [address] [address] Ultrasound Report Signed Patient: VIMAL PIZANO MR#: [id number] : 2000 Acct:[id number] Age/Sex: 25 / F ADM Date: 06/22/25 Loc: US Attending Dr: Collin Leach Ordering Physician: Collin Leach Date of Service: 06/22/25 Procedure(s): US OB BPP w non-stress Accession Number(s): [id number] cc: Collin Leach; LUIS SEE [address] [address] Patient Name: VIMAL PIZANO MRN: [id number] date: 2000 Sex: F Assigned Patient Location: [facility] Current Patient Location: Accession/Order Number: [id number] Exam Date: 06/22/2025 10:52 Report Date: 06/22/2025 19:28 At the request of: COLLIN LEACH Procedure: US OB BPP w non-stress US OB BPP w non-stress 06/22/2025 11:11 AM SIGNS AND SYMPTOMS: RELATED HYPERTENSION PROTOCOL: Transabdominal sonographic imaging of the gravid uterus COMPARISON: None FINDINGS: Estimated gestational age: 35 weeks 5 days heart rate: 153 bpm Amniotic fluid index: 10.51 cm. The deepest vertical pocket measures 4.4 cm. Biophysical profile: breathing movements: 2/2 Gross body movements: 2/2 tone: 2/2 Amniotic fluid volume: 2/2 US/US OB BPP w non-stress IMPRESSION: Biophysical profile: 05/03 Impression dictated by: Heriberto Achraya M.D. 06/22/2025 7:28 PM Dictation Location: [place] [address] Electronically authenticated by: [id number] Y Date: 06/22/2025 19:28 Dictated By: Heriberto Acharya M.D. Signed By: 06/22/251930 DD/ 27 TD/TT: Finisher Map And Chart: Procedure Note Radiology, Radiologist, MD - 06/22/2025 [place] [address] Ultrasound Report Signed Patient: VIMAL PIZANO MMR#: [id number] : 2000Acct:[id number] Age/Sex: 25 / FADM Date: 06/22/25 Loc: US Attending Dr: Collin Leach Ordering Physician: Collin Leach Date of Service: 06/22/25 Procedure(s): US OB BPP w non-stress Accession Number(s): [id number] cc: Collin Leach; LUIS SEE [address] [address] Patient Name: VIMAL PIZANO MRN: [id number] date: 2000 Sex: F Assigned Patient Location: [facility] Current Patient Location: Accession/Order Number: [id number] Exam Date: 06/22/2025 10:52 Report Date: 06/22/2025 19:28 At the request of: COLLIN LEACH Procedure: US OB BPP w non-stress US OB BPP w non-stress 06/22/2025 11:11 AM SIGNS AND SYMPTOMS: RELATED HYPERTENSION PROTOCOL: Transabdominal sonographic imaging of the gravid uterus COMPARISON: None FINDINGS: Estimated gestational age: 35 weeks 5 days heart rate: 153 bpm Amniotic fluid index: 10.51 cm. The deepest vertical pocket measures 4.4cm. Biophysical profile: breathing movements: 2/2 Gross body movements: 2/2 tone: 2/2 Amniotic fluid volume: 2/2 US/US OB BPP w non-stress IMPRESSION: Biophysical profile: 05/03 Impression dictated by: Heriberto Acharya M.D. 06/22/2025 7:28 PM Dictation Location: [place] [address] Electronically authenticated by: [id number] Y Date: 9:28 Dictated By: Heriberto Acharya M.D. Signed By:06/22/251930 DD/ 27 TD/TT: Finisher Map And Chart: Collin [facility] Final Result documented in this encounter Visit Diagnoses Not on filedocumented in this encounter Care Teams Anesthesiologist Relationship Specialty Start Date End Date Unallocated, Noms Provider, [place] [address] PCP - General Family Medicine 08/03/24 documented as of this encounter
--- OUTSIDE RECORDS SUMMARY | 2025-06-26 20:14 | XMS_ITS | Encounter Summary ---
Author Organization [facility] Address [address] [place] [address] Care Team Providers Care Supervisor Billposting Name Role Phone Unallocated, Noms Provider Primary Care Provi krissy Encounter Details Date Type Department Care Team (Late Contact Info) Description 06/26/2025 Bamboo flowsheet [facility] [address] [place] [address] Megan Aranda, VLAD [address] [facility] [address] [place] [place] [address] Social History Tobacco Use Types Packs/Day Years [...] AM EDT Routine [facility] [place] [facility] [address] [place] [address] Megan Aranda, VLAD [address] [place] [address] documented as of this encounter Visit Diagnoses Not on filedocumented in this encounter Care Teams Supervisor Billposting Relationship Specialty Start Date End Date Unallocated, Noms Provider, [place] [address] PCP - General Family Medicine 08/03/24 documented as of this encounter
--- OUTSIDE RECORDS SUMMARY | 2025-06-26 20:14 | XMS_ITS | Encounter Summary ---
Author Organization [facility] Address [address] [place] [address] Care Team Providers Care Merchant Seaman Name Role Phone Unallocated, Noms Provider Primary Care Provi krissy Encounter Details Date Type Department Care Team (Late st Contact Info) Description 06/04/2025 External Result Encounter [facility] [place] [facility] [address] [place] [address] Mackenzie Rodriguez DO [facility] [address] [place], [facility] Social History Tobacco Use Types [...] Routine [facility] [place] [facility] [address] [place] [address] Megan Aranda VLAD [address] [facility] [address] [place] [place] [address] documented as of this encounter Procedures Procedure Name Priority Date/Time Associated Diagnosis Comments US OB 14+ WEEKS ANATOMY SCAN 06/04/2025 4:20 PM EDT documented in this encounter Results * US OB 14+ weeks anatomy scan (06/04/2025 4:20 PM EDT) Anatomical Region Laterality Modality Body Ultrasound 06/04/2025 4:20 PM EDT Narrative 06/04/2025 4:20 PM EDT THIS EXAM WAS PERFORMED AT [facility] NAME: MARIN CELIS : 2000 SEX: F Accession Number: [id number] ORDERING PHYSICIAN: CHRIS MARTIN REFERRING PHYSICIAN: MACKENZIE RODRIGUEZ Coding ----- --------- Procedures 43258: Ultrasound, uterus, real time with image documentation, and maternal evaluation plus detailed anatomic examination, transabdominal approach;single or first gestation 00653: Doppler velocimetry, ; umbilical artery Indication ----- [...] EFW (oz) 4 oz EFW by: Hadlock ([id number]) Extended Tibia 49.0 mm 29w 3d <1% Khanh Foot 56.8 mm <1% Chitty Crew Director 4.6 mm CM 6.2 mm 19% Nicolaides [...] bone. Maxilla. Mandible. Orbits. Heart/Thorax: LVOT view. 2-tdcqkv-glfuofz view. Situs. Ductal arch view. Cardiac position. [...] 4.2 cm. Recommendations ----- --------- Please see [facility] documentation from today. Subsequent follow up or other follow up as clinically determined by primary OB provider unless otherwise specified by [facility]. Results forwarded to ordering provider so they can follow up with the patient as necessary. The copy-to physician of this order is MACKENZIE Victoria The ordering physician of this order is CHRIS Patterson Procedure Note Radiology, Radiologist, - 06/04/2025 THIS EXAM WAS PERFORMED AT [facility] NAME: MARIN CELIS : 2000 SEX: F Accession Number: [id number] ORDERING PHYSICIAN: CHRIS MARTIN REFERRING PHYSICIAN: MACKENZIE RODRIGUEZ Coding ----- --------- Procedures 05325: Ultrasound, uterus, real time with imagedocumentation, and maternal evaluation plus detailed anatomic examination, transabdominalapproach;single or first gestation 82273: Doppler velocimetry, ; umbilical artery Indication ----- [...] EFW (oz) 4 oz EFW by: Hadlock ([id number]) Extended Tibia 49.0 mm 29w 3d <1% Khanh Foot 56.8 mm <1% Chitty Crew Director 4.6 mm CM 6.2 mm 19% Nicolaides [...] bone. Maxilla. Mandible. Orbits. Heart/Thorax: LVOT view. 8-dlumiz-fajzcbs view. Situs. Ductal arch view.Cardiac position. Cardiac [...] on filedocumented in this encounter Care Teams Merchant Seaman Relationship Specialty Start Date End Date Unallocated, Noms Gilda, [address] [place], [place] [id number] PCP - General Family Medicine 08/03/24 documented as of this encounter
--- OUTSIDE RECORDS SUMMARY | 2025-06-26 20:14 | XMS_ITS | Encounter Summary ---
Author Organization [facility] Address [address] [place] [address] Care Team Providers Care Border Measurer Name Role Phone Unallocated, Noms Provider Primary Care Provi krissy Encounter Details Date Type Department Care Team (Late st Contact Info) Description 08/10/2024 Abstract ARJUN PANG [address] [place] [address] Jose Rodriguez DO [address] [facility] [address] [place], [facility]11 Social History Tobacco Use Types Packs/Day [...] 9:40 AM EDT Routine ARJUN PANG [address] [place] [address] Megan Aranda, CASTING TECHNICIAN [address] [place] [address] documented as of this encounter Visit Diagnoses Not on filedocumented in this encounter Care Teams Border Measurer Relationship Specialty Start Date End Date Unallocated, Noms Provider, [address] [place] [address] PCP - General Family Medicine 08/03/24 documented as of this encounter
--- OUTSIDE RECORDS SUMMARY | 2025-06-26 20:14 | XMS_ITS | Clinical Summary ---
Author Organization [facility] Address [address] [place] [address] Care Team Providers Care Racetrack Steward Name Role Phone Unallocated, Noms Provider Primary [...] antepartum, gestational diabetes method of control unspecified ([facility]),Elevat ed glucose tolerance test 1 kit Daily [...] Noted Date Diagnosed Date induced hypertension, antepartum ([facility]) 05/28/2025 Gestational diabetes mellitus (GDM), antepartum ([facility]) 05/28/2025 Estimated Date of Delivery Comme nts Yes 07/22/2025 Based on last me nstrual period of 10/15/2024 (Exact Date) Encounters Date Type Department Care Team Description 06/26/2025 9:10 AM ED[place] [phone] Megan Aranda NP Third trimester ([facility]); 36 weeks gestation of ([facility]); Diet controlled gestational diabetes mellitus (GDM), antepartum ([facility]); induced hypertension, antepartum ([facility]) 06/26/2025 [place] [address] Mackenzie Rodriguez, 06/26/2025 Bamboo flowsheet [facility] [address] [place] [address] [phone] Megan Aranda NP 06/25/2025 Abstract [facility] [address] [place] [phone] Kavitha Almanza MA 06/22/2025 Clinisync Result Encounter NOMS External Department Unsolicited Rossana Leach PA 06/19/2025 2:40 PM EDT Routine [facility] [address] [place] [address] Mackenzie Rodriguez, Third trimester ([facility]); 35 weeks gestation of ([facility]); Diet controlled gestational diabetes mellitus (GDM), antepartum ([facility]); induced hypertension, antepartum ([facility]) 06/19/2025 Abstract [facility] [address] [place] [address] Mackenzie Rodriguez DO 06/15/2025 Clinisync Result Encounter NOMS External Department Unsolicited Rossana Leach PA 06/12/2025 3:00 PM EDT Routine [facility] [address] [place] [address] Rossana Leach PA Third trimester ([facility]); 34 weeks gestation of ([facility]) 06/12/2025 Bamboo flowsheet [facility] [address] [place] [address] Rossana Leach PA 06/08/2025 Clinisync Result Encounter NOMS External Department Unsolicited Rossana Leach PA 06/06/2025 Results Follow-Up [facility] [address] [place] [address] Dendlacho Glenna, MARILU OB 14+ weeks anatomy scan 06/05/2025 Abstract [facility] [address] [place] [phone] Mackenzie Rodriguez, 06/04/2025 External Result Encounter [facility] [address] [place] [address] Mackenzie Rodriguez, DO 06/01/2025 Clinisync Result Encounter NOMS External Department Unsolicited Rossana Leach PA 05/28/2025 10:30 AM EDT Routine [facility] [place] [address] Mackenzie Rodriguez, DO Third trimester ([facility]); 32 weeks gestation of ([facility]); Gestational diabetes mellitus (GDM), antepartum, gestational diabetes method of control unspecified ([facility]); induced hypertension, antepartum ([facility]) 05/28/2025 Bamboo flowsheet [facility] [address] [place] [address] Mackenzie Rodriguez, DO 05/25/2025 Clinisync Result Encounter NOMS External Department Unsolicited Rossana Leach PA 05/22/2025 2:40 PM EDT Routine [facility] [address] [address] [place] [address] Mackenzie Rodriguez, Third trimester ([facility]); 31 weeks gestation of ([facility]) 05/22/2025 Bamboo flowsheet [facility] [address] [place] [address] Mackenzie Rodriguez, DO 05/20/2025 Clinisync Result Encounter NOMS External Department Unsolicited Mackenzie Rodriguez, DO 05/18/2025 Clinisync Result Encounter NOMS External Department Unsolicited Rossana Leach PA 05/18/2025 Clinisync Result Encounter NOMS External Department Unsolicited Mackenzie Rodriguez, 05/14/2025 2:40 PM [place] [address] Mackenzie Rodriguez, DO Third trimester ([facility]); 30 weeks gestation of ([facility]); induced hypertension, antepartum ([facility]) 05/14/2025 [place] [address] Mackenzie Rodriguez, 05/11/2025 Clinisync Result Encounter NOMS External Department Unsolicited Rossana Leach PA 05/08/20[place] [address] Mackenzie Rodriguez, 05/07/2025 [place] [address] Glenna Butler, SINGLE POINTED OPERATOR ALL CBC WITH AUTO DIFF, SRMCOH PROTHROMBIN TIME INR W/O COUM, [facility] APTT, Additional followed-up results: 6 05/06/2025 Clinisync Result Encounter NOMS External Department Unsolicited Rossana Leach PA 05/04/2025 Clinisync Result Encounter NOMS External Department Unsolicited Rossana Leach PA 05/04/2025 Clinisync Result Encounter NOMS External Department Unsolicited Rossana Leach PA 05/04/2025 [place] [address] Mackenzie Rodriguez, 05/04/2025 Clinisync Result Encounter NOMS External Department Unsolicited Rossana Leach PA 04/30/2025 10:50 AM [place] [address] Rossana Leach PA BP check; -induced hypertension in third trimester ([facility]); Gestational diabetes mellitus (GDM) in third trimester, gestational diabetes method of control unspecified ([facility]) 04/30/2025 Bamboo flowsheet [facility] [place] [phone] Rossana Leach PA 04/29/2025 Telephone [facility] [place] [address] Kavitha Almanza MA 04/27/2025 Clinisync Result Encounter NOMS External Department Unsolicited Rossana Leach PA 04/25/2025 2:50 PM EDT [place] [phone] Rossana Leach PA Second trimester ([facility]); 27 weeks gestation of ([facility]); induced hypertension, antepartum ([facility]) 04/25/2025 Bamboo flowsheet [facility] [facility] [place] [address] Rossana Leach PA 04/11/2025 3:30 PM EDT Routine [facility] [address] [place] [address] Rossana Leach PA Second trimester ([facility]); 25 weeks gestation of ([facility]); Diabetes mellitus screening; Elevated BP without diagnosis of hypertension 04/11/2025 Bamboo flowsheet [facility] [address] [place] [address] Rossana Leach PA 03/28/2025 Abstract [facility] [place] [address] Mackenzie Rodriguez DO from Last 3 Months [...] (181 lb) 06/26/2025 9:32 AM EDT Height 160 cm (5' 3 ) 01/06/2023 12:00 PM EDT Body Mass Index 32.06 01/06/2023 12:00 PM EDT Plan of Treatment Upcoming Encounters Date Type Department Care Team (Late st Contact Info) Description 07/04/2025 9:40 AM EDT Routine [facility] [address] [place] [address] Megan Aranda, VLAD [address] [facility] [address] [place] [address] Health Maintenance Due Date Last Done Comments Influenza Vaccine (#1) 2025 08/28/2003, 2002 Procedures Procedure Name Priority Date/Time Associated Diagnosis Comments POCT URINALYSIS DIPSTICK Routine 06/26/2025 9:32 AM EDT Third trimester ([facility]) US OB BPP W NON-STRESS 06/22/2025 7:28 PM EDT POCT URINALYSIS DIPSTICK Routine 06/19/2025 3:05 PM EDT Third trimester ([facility]) US OB BPP W NON-STRESS 06/15/2025 12:51 PM EDT POCT URINALYSIS DIPSTICK Routine 06/12/2025 3:32 PM EDT Third trimester ([facility]) 34 weeks gestation of ([facility]) US OB BPP W NON-STRESS 06/08/2025 12:10 PM EDT US OB 14+ WEEKS ANATOMY SCAN 06/04/2025 4:20 PM EDT US OB BPP W NON-STRESS 06/01/2025 12:03 PM EDT POCT URINALYSIS DIPSTICK Routine 05/28/2025 11:00 AM EDT Third trimester ([facility]) US OB BPP W NON-STRESS 05/25/2025 11:13 AM EDT POCT URINALYSIS DIPSTICK Routine 05/22/2025 3:12 PM EDT Third trimester ([facility]) TBH TOTAL PROTEIN 24 HOUR URINE Routine [...] Routine 04/25/2025 3:12 PM EDT Second trimester ([facility]) POCT URINALYSIS DIPSTICK Routine 04/11/2025 3:44 PM EDT Second trimester ([facility]) from Last 3 Months Results * POCT urinalysis dipstick manually resulted (06/26/2025 9:32 AM EDT) Only the most recent of8 resultswithin the time period is included. Color, [...] - Positive Urine 06/26/2025 9:32 AM EDT us Megan Aranda NP POINT OF CARE TEST ENTER/EDIT ORDERABLES Final Result * US OB BPP W NON-STRESS (06/22/2025 7:28 PM EDT) Only the most recent of8 resultswithin the time period is included. Anatomical Region Laterality Modality Other 06/22/2025 7:28 PM EDT Narrative 06/22/2025 7:31 PM EDT The [address] [address] Ultrasound Report Signed Patient: VIMAL FUNES MR#: [id number] : 2000 Acct:[id number] Age/Sex: 25 / F ADM Date: 06/22/25 Loc: US Attending Dr: Rossana Leach Ordering Physician: Rossana Leach Date of Service: 06/22/25 Procedure(s): US OB BPP w non-stress Accession Number(s): [id number] cc: Rossana Leach; LUIS SEE [place] [id number] Patient Name: VIMAL FUNES MRN: [id number] date: 2000 Sex: F Assigned Patient Location: [facility] Current Patient Location: Accession/Order Number: [id number] Exam Date: 06/22/2025 10:52 Report Date: 06/22/2025 19:28 At the request of: ROSSANA LEACH Procedure: [...] Acharya M.D. 06/22/2025 7:28 PM Dictation Location: [place] [address] Electronically authenticated by: [id number] Y Date: 06/22/2025 19:28 Dictated By: Heriberto Acharya M.D. Signed By: 06/22/251930 DD/ 27 TD/TT: Messenger Copy: Procedure Note Radiology, Radiologist, - 06/22/2025 [place] [address] Ultrasound Report Signed Patient: VIMAL FUNES MMR#: [id number] : 2000Acct:[id number] Age/Sex: 25 / FADM Date: 06/22/25 Loc: US Attending Dr: Rossana Leach Ordering Physician: Rossana Leach Date of Service: 06/22/25 Procedure(s): US OB BPP w non-stress Accession Number(s): [id number] cc: Rossana Leach; LU[place] SEE [place] [id number] Patient Name: VIMAL FUNES MRN: [id number] date: 2000 Sex: F Assigned Patient Location: [facility] Current Patient Location: Accession/Order Number: [id number] Exam Date: 06/22/2025 10:52 Report Date: 06/22/2025 19:28 At the request of: ROSSANA LEACH Procedure: [...] Acharya M.D. 06/22/2025 7:28 PM Dictation Location: [place] [address] Electronically authenticated by: [id number] Y Date: 9:28 Dictated By: Heriberto Acharya M.D. Signed By:06/22/251930 DD/ 27 TD/TT: Messenger Copy: us Rossana BISWAS [facility] Final Result * US OB 14+ weeks anatomy scan (06/04/2025 4:20 PM EDT) Anatomical Region Laterality Modality Body Ultrasound 06/04/2025 4:20 PM EDT Narrative 06/04/2025 4:20 PM EDT THIS EXAM WAS PERFORMED AT [facility] NAME: JERICA CELIS : 2000 SEX: F Accession Number: [id number] ORDERING PHYSICIAN: CHRIS MARTIN REFERRING PHYSICIAN: MACKENZIE RODRIGUEZ Coding ----- --------- Procedures 82394: Ultrasound, uterus, real time with image documentation, and maternal evaluation plus detailed anatomic examination, transabdominal approach;single or first gestation 44536: Doppler velocimetry, ; umbilical artery Indication ----- [...] EFW (oz) 4 oz EFW by: Hadlock ([id number]-VC-WD-FL) Extended Tibia 49.0 mm 29w 3d <1% Khanh Foot 56.8 mm <1% Chitty Nurse Practitioner Physician Assistant 4.6 mm CM 6.2 mm 19% Nicolaides [...] bone. Maxilla. Mandible. Orbits. Heart/Thorax: LVOT view. 6-ducvki-waoptzt view. Situs. Ductal arch view. Cardiac position. [...] CELIS : 2000 SEX: F Accession Number: [id number] ORDERING PHYSICIAN: CHRIS MARTIN REFERRING PHYSICIAN: MACKENZIE RODRIGUEZ Coding ----- --------- Procedures 60437: Ultrasound, uterus, real time with imagedocumentation, and maternal evaluation plus detailed anatomic examination, transabdominalapproach;single or first gestation 95144: Doppler velocimetry, ; umbilical artery Indication ----- [...] EFW (oz) 4 oz EFW by: Hadlock (TGF-WC-FB-FL) Extended Tibia 49.0 mm 29w 3d <1% Khanh Foot 56.8 mm <1% Chitty Nurse Practitioner Physician Assistant 4.6 mm CM 6.2 mm 19% Nicolaides [...] bone. Maxilla. Mandible. Orbits. Heart/Thorax: LVOT view. 3-plxixf-qcymktu view. Situs. Ductal arch view.Cardiac position. Cardiac [...] 4.2 cm. Recommendations ----- --------- Please see [facility] documentation from today. Subsequent follow up [...] Narrative CLINISYNC - 05/20/2025 7:25 PM EDT [facility] Hendrick[facility] DO CLINISYNC Final Result Performing Organization Address City/[facility] Co de Phone Number [facility] * (ABNORMAL) TBH CREATININE (05/18/2025 11:03 AM EDT) Only the most recent of2 resultswithin the time period is included. CREATININE 0.38(L) 0.55 - 1.02 mg/dL TBH TBH EGFR-AF MALDIVIAN >60 >=60 mL/min/1.7 3m 2 TBH TBH EGFR-NON AF MALDIVIAN >60 >=60 mL/min/1.7 3m 2 TBH 05/18/2025 11:0 3 AM EDT 05/18/2025 11:08 AM EDT Narrative CLINISYNC - 05/18/2025 11:50 AM EDT Mackenzie Rodriguez DO CLINIS[facility]NC Final Result [facility] * [facility] PROTHROMBIN TIME INR [...] EDT Mackenzie Michael DO CLINISYNC Final Result [facility] * [facility] AST (05/18/2025 11:03 AM EDT) Only the most recent of2 resultswithin the time period is included. ASPARTATE AMINO TRANSFERASE 18 15 - 37 U/L TB 05/18/2025 11:0 3 AM EDT 05/18/2025 11:08 AM EDT Narrative CLINISYNC - 05/18/2025 11:50 AM EDT Mackenzie Michael DO CLINISYNC Final Result Performing Organization Address [facility] Co de Phone Number [facility] * [facility] APTT (05/18/2025 11:03 AM EDT) Only the most recent of2 resultswithin the time period is included. PARTIAL THROMBOPLASTIN TIME 25.6 22.3 - 36.2 sec TB 05/18/2025 11:0 3 AM EDT 05/18/2025 11:08 AM EDT Narrative CLINISYNC - 05/18/2025 11:29 AM EDT Mackenzie Michael DO CLINISYNC Final Result Performing Organization Address City/[facility]/ZIP Co de Phone Number [facility] * ALL URIC ACID (05/18/2025 11:03 AM EDT) Only the most recent of2 resultswithin the time period is included. Pathologist [facility] URIC ACID 4.0 2.6 - 6.0 mg/dL TB 05/18/2025 11:0 3 AM EDT 05/18/2025 11:08 AM EDT Narrative CLINISYNC - 05/18/2025 11:50 AM EDT Mackenzie Michael DO CLINISYNC Final Result Performing Organization Address City/[facility]/ZIP Co de Phone Number [facility] * ALL LDH (05/18/2025 11:03 AM EDT) Only the most recent of2 resultswithin the time period is included. Pathologist [facility] LACTATE DEHYDROGENASE 147 81 - 234 U/L TB 05/18/2025 11:0 3 AM EDT 05/18/2025 11:08 AM EDT Narrative CLINISYNC - 05/18/2025 11:50 AM EDT [facility] Michael DO CLINISYNC Final Result Performing Organization Address [facility] de Phone Number [facility] * (ABNORMAL) ALL CBC WITH AUTO DIFF (05/18/2025 11:03 AM EDT) Only the most recent of3 resultswithin the time period is included. Pathologist [facility] TB WBC 15.0(H) 4.0 - 11.0 10 [...] Mackenzie Michael DO CLINISYNC Final Result [facility] * ALL BUN (05/18/2025 11:03 AM EDT) Only the most recent of2 resultswithin the time period is included. Pathologist [facility] BLOOD UREA NITROGEN 9.0 7.0 - 18.0 mg/dL TBH 05/18/2025 11:0 3 AM EDT 05/18/2025 11:08 AM EDT Narrative CLINISYNC - 05/18/2025 11:50 AM EDT us Mackenzie Michael DO CLINISYNC Final Result [facility] * US OB GROWTH (05/04/2025 12:08 PM EDT) Anatomical Region Laterality Modality Other 05/04/2025 12:0 8 PM EDT Narrative 05/04/2025 12:11 PM EDT [address] [address] Ultrasound Report Signed Patient: VIMAL FUNES MR#: [id number] : 2000 Acct:[id number] Age/Sex: 25 / F ADM Date: 05/04/25 Loc: [facility] 250-[address]: Rossana Leach Ordering Physician: Rossana Leach Date of Service: 05/04/25 Procedure(s): US OB growth Accession Number(s): [id number] cc: Rossana Leach; LUIS SEE [address] [address] Patient Name: VIMAL FUNES MRN: [id number] date: 2000 Sex: F Assigned Patient Location: [facility] Current Patient Location: [facility] Accession/Order Number: [id number] Exam Date: 05/04/2025 12:06 Report Date: 05/04/2025 [...] Jr., D.O. 05/04/2025 12:08 PM Dictation Location: [facility] Electronically authenticated by: [id number] Y Date: 05/04/2025 12:08 Dictated By: Bulmaro Arias M.D. Signed By: 05/04/25 1211 DD/ 1208 TD/TT: Messenger Copy: Procedure Note Radiology, Radiologist, - 05/04/2025 The [place] [id number] Ultrasound Report Signed Patient: VIMAL FUNES MMR#: [id number] : 2000Acct:[id number] Age/Sex: 25 / FADM Date: 05/04/25 Loc: [place] [address]: Rossana Leach Ordering Physician: Rossana Leach Date of Service: 05/04/25 Procedure(s): US OB growth Accession Number(s): [id number] cc: Rossana Leach; LUIS SEE [place] [phone] Patient Name: VIMAL FUNES MRN: [id number] date: 2000 Sex: F Assigned Patient Location: [facility] Current Patient Location: [facility] Accession/Order Number: [id number] Exam Date: 05/04/2025 12:06 Report Date: 05/04/2025 [...] Jr., D.O. 05/04/2025 12:08 PM Dictation [facility] Electronically authenticated by: [id number] Y Date: 2:08 Dictated By: Bulmaro Arias M.D. Signed By:05/04/25 1211 DD/ TD/TT: Messenger Copy: Rossana BISWAS [facility] Final Result * [...] ORDERABLES Final Resul t Performing Organization Address City/[facility] Co de Phone Number [facility] TB * (ABNORMAL) GLUCOSE 1 HOUR (04/27/2025 10:05 AM EDT) GLUCOSE 1 HOUR 171(H) <130 mg/dL TBH 04/27/2025 10:0 5 AM EDT 04/27/2025 10:06 AM EDT Narrative CLINISYNC - 04/27/2025 10:45 AM EDT Rossana BISWAS LAB BLOOD ORDERABLES Final Resul t Performing Organization Address City/State/[facility] Co de Phone Number CLIN[facility] TB from Last 3 Months Insurance [facility] [employer] Care Teams Racetrack Steward Relationship Specialty Start Date End Date Unallocated, Noms Provider, [address] [place], [place] [phone] PCP - General Family Medicine 08/03/24
--- OUTSIDE RECORDS SUMMARY | 2025-06-26 20:14 | XMS_ITS | Encounter Summary ---
Author Organization [facility] Address [address] [place] [address] Care Team Providers Care Team Guide Name Role Phone Vaishali Chaidez MD Primary Care Provider Bipin cheng Unallocated, Noms Provider Primary Care Provi krissy Encounter Details Date Type Department Care Team (Late st Contact Info) Description 06/29/2024 Clinisync Result Encounter NOMS External Department Unsolicited Mackenzie Rodriguez DO [address] [place], [facility] Social History Tobacco Use Types [...] Info) Description 07/04/2025 9:40 AM EDT Routine [facility] [place] [facility] [address] [place] [address] Megan Aranda, LEAD CASHIER [address] [place] [address] documented as of this encounter Procedures Procedure Name Priority Date/Time Associated Diagnosis Comments US OB TRANSVAGINAL 06/29/2024 9: 11 AM EDT documented in this encounter Results * US OB TRANSVAGINAL (06/29/2024 9:11 AM EDT) Anatomical Region Laterality Modality Other 06/29/2024 9:11 AM EDT Narrative 06/29/2024 9:14 [place] [address] Ultrasound Report Signed Patient: Vimal Pizano MR#: [id number] : 2000 Acct:[id number] Age/Sex: 24 / F ADM Date: 06/29/24 Loc: N[facility] Attending Dr: Mackenzie Rodriguez D.O. Ordering Physician: Mackenzie Rodriguez D.O. Date of Service: 06/29/24 Procedure(s): US OB transvaginal Accession Number(s): [id number] cc: Mackenzie Rodriguez D.O.; VAISHALI CHAIDEZ [place] [phone] Patient Name: VIMAL PIZANO MRN: [id number] date: 2000 Sex: F Assigned Patient Location: [facility] Current Patient Location: [facility] Accession/Order Number: [id number] Exam Date: 06/29/2024 08:37 Report Date: 06/29/2024 [...] M.D. Signed By: 06/29/24913 DD/ 0 TD/TT: Road Crew Member: Procedure Note Radiology, Radiologist, MD - 06/29/2024 [place] [address] Ultrasound Report Signed Patient: Vimal Pizano MMR#: [id number] : 2000Acct:[id number] Age/Sex: 24 / FADM Date: 06/29/24 Loc: NOM[facility] Attending Dr: Mackenzie Rodriguez D.O. Ordering Physician: Mackenzie Rodriguez D.O. Date of Service: 06/29/24 Procedure(s): US OB transvaginal Accession Number(s): [id number] cc: Mackenzie Rodriguez D.O.; VAISHALI CHAIDEZ [place] [phone] Patient Name: VIMAL PIZANO MRN: [id number] date: 2000 Sex: F Assigned Patient Location: [facility] Current Patient Location: [facility] Accession/Order Number: [id number] Exam Date: 06/29/2024 08:37 Report Date: 06/29/2024 [...] Herrera M.D. Signed By:06/29/24913 DD/ 0 TD/TT: Road Crew Member: us Mackenzie Michael DO [facility] Final Result documented in this encounter Visit Diagnoses Not on filedocumented in this encounter Care Teams Team Guide Relationship Specialty Start Date End Date Vaishali Chaidez MD [address] [place] [address] PCP - General Family Medicine 02/04/23 08/02/24 Unallocated, Noms Provider, [address] [facility] [place] [address] PCP - General Family Medicine 08/03/24 documented as of this encounter
--- OUTSIDE RECORDS SUMMARY | 2025-06-26 20:14 | XMS_ITS | Encounter Summary ---
Author Organization [facility] Address [address] [place] [address] Care Team Providers Care Money Manager Name Role Phone Unallocated, Noms Provider Primary Care Provi krissy Encounter Details Date Type Department Care Team (Late st Contact Info) Description 08/10/2024 Abstract ARJUN PANG [address] [place] [address] Jose Rodriguez DO [address] [facility] [address] [place], [facility] Social History Tobacco Use Types Packs/Day Years [...] EDT Routine ARJUN PANG [address] [place] [address] Megan Aranda, SANITIZER [address] [place] [address] documented as of this encounter Visit Diagnoses Not on filedocumented in this encounter Care Teams Money Manager Relationship Specialty Start Date End Date Unallocated, Noms Provider, [address] [place] [address] PCP - General Family Medicine 08/03/24 documented as of this encounter
--- OUTSIDE RECORDS SUMMARY | 2025-06-26 20:14 | XMS_ITS | Encounter Summary ---
Author Organization [facility] Address [address] [place] [address] Care Team Providers Care Fur Finisher Tailor Name Role Phone Vaishali Zapata MD Primary Care Provider Bipin cheng Unallocated, Noms Provider Primary Care Provi krissy Encounter Details Date Type Department Care Team (Late st Contact Info) Description 06/28/2024 Abstract ARJUN PANG [address] [facility] [place] [address] Jose Rodriguez DO [address] Josué [place], [place] [address] Social History Tobacco Use Types Packs/Day Years [...] Department Care Team (Late Contact Info) Description 07/04/2025 9:40 AM EDT Routine ARJUN PANG [address] [employer] [address] Megan Aranda, VLAD [address] [facility] [address] [place] [address] documented as of this encounter Visit Diagnoses Not on filedocumented in this encounter Care Teams Fur Finisher Tailor Relationship Specialty Start Date End Date Vaishali Zapata MD [address] [place] [address] PCP - General Family Medicine 02/04/23 08/02/24 Unallocated, Noms Provider, [address] [facility] [place] [address] PCP - General Family Medicine 08/03/24 documented as of this encounter
--- OUTSIDE RECORDS SUMMARY | 2025-06-26 20:14 | XMS_ITS | Encounter Summary ---
Author Organization [facility] Address [address] [place] [address] Care Team Providers Care Peer Health Promoter Name Role Phone Unallocated, Noms Provider Primary Care Provi krissy Encounter Details Date Type Department Care Team (Late Contact Info) Description 06/19/2025 Abstract NOMMay PANG [address] [facility] [place] [address] Jose Rodriguez DO [address] [facility] [address] Josué [place], [place] [address] Social History Tobacco Use Types Packs/Day Years [...] Description 07/04/2025 9:40 AM EDT Routine NOMMay PANG [address] [facility] [place] [address] Megan Aranda, VLAD [address] [place] [address] documented as of this encounter Visit Diagnoses Not on filedocumented in this encounter Care Teams Peer Health Promoter Relationship Specialty Start Date End Date Unallocated, Noms Provider, [address] [place] [address] PCP - General Family Medicine 08/03/24 documented as of this encounter
--- OUTSIDE RECORDS SUMMARY | 2025-06-26 20:14 | XMS_ITS | Encounter Summary ---
Author Organization [facility] Address [address] [place] [address] Care Team Providers Care Ecological Technical Officer Name Role Phone Unallocated, Noms Provider Primary Care Provi krissy Encounter Details Date Type Department Care Team (Late st Contact Info) Description 03/11/2025 Results Follow-Up ARJUN [place] OBGYN [address] [facility] [address] [place] [address] Glenna Butler LPN [address] [place] [address] US OB ANATOMY Social History [...] AM EDT Routine NOMMay [place] OBGYN [address] [facility] [place] [address] Megan Aranda, VLAD [address] [facility] [address] [place] [address] documented as of this encounter Visit Diagnoses Not on filedocumented in this encounter Care Teams Ecological Technical Officer Relationship Specialty Start Date End Date Unallocated, Noms MD Gilda [address] [place] [address] PCP - General Family Medicine 08/03/24 documented as of this encounter
--- OUTSIDE RECORDS SUMMARY | 2025-06-26 20:14 | XMS_ITS | Encounter Summary ---
Author Organization [facility] Address [address] [place] [address] Care Team Providers Care Insurance Agents Supervisor Name Role Phone Vaishali Zapata MD Primary Care Provider Bipin cheng Unallocated, Noms Provider Primary Care Provi krissy Encounter Details Date Type Department Care Team (Late st Contact Info) Description 06/29/2024 Abstract ARJUN PANG [address] [place] [address] Jose Rodriguez DO [address] Josué [place], [place] [address] Social History Tobacco Use Types Packs/Day Years [...] 9:40 AM EDT Routine ARJUN PANG [address] [place] [address] Megan Aranda, VLAD [address] [facility] [address] [place] [address] documented as of this encounter Visit Diagnoses Not on filedocumented in this encounter Care Teams Insurance Agents Supervisor Relationship Specialty Start Date End Date Vaishali Zapata MD [address] [place] [address] PCP - General Family Medicine 02/04/23 08/02/24 Unallocated, Noms Provider, [address] [facility] [place] [address] PCP - General Family Medicine 08/03/24 documented as of this encounter
--- OUTSIDE RECORDS SUMMARY | 2025-06-26 20:14 | XMS_ITS | Encounter Summary ---
Author Organization [facility] tem Address [id number] [address] [place] [address] Care Team Providers Care Marketing Director Assisted Living Name Role Phone Unavailable Primary Care Provider Unavailabl e Encounter Details Date Type Department Care Team ([facility] Contact Info) Description 05/31/2025 Orders Only Maternal- Medicine at [facility] [address] [place] [address] Ref Prov, [place] [address] Social History Tobacco Use Types Packs/Day Years [...] Department Care Team (Late Contact Info) Description 07/02/2025 3:30 PM EDT Appointment [facility] US Imaging [address] [place] [address] documented as of this encounter Visit Diagnoses Not on filedocumented in this encounter
--- OUTSIDE RECORDS SUMMARY | 2025-06-26 20:14 | XMS_ITS | Encounter Summary ---
Author Organization [facility] Address [address] [place] [address] Care Team Providers Care Assistant Quality Manager Name Role Phone Vaishali Zapata MD Primary Care Provider Bipin cheng Unallocated, Noms Provider Primary Care Provi krissy Encounter Details Date Type Department Care Team (Late st Contact Info) Description 08/02/2024 Abstract ARJUN PANG [address] [facility] [place] [address] Jose Rodriguez DO [address] Josué [place], [place] [address] Social History Tobacco Use Types Packs/Day Years [...] 9:40 AM EDT Routine ARJUN PANG [address] [place] [address] Megan Aranda, VLAD [address] [facility] [address] [place] [address] documented as of this encounter Visit Diagnoses Not on filedocumented in this encounter Care Teams Assistant Quality Manager Relationship Specialty Start Date End Date Vaishali Zapata MD [address] [place] [address] PCP - General Family Medicine 02/04/23 08/02/24 Unallocated, Noms Provider, [address] [facility]AL[facility] [place] [address] PCP - General Family Medicine 08/03/24 documented as of this encounter
--- OUTSIDE RECORDS SUMMARY | 2025-06-26 20:14 | XMS_ITS | Encounter Summary ---
Author Organization [facility] tem Address [id number] [address] [place] [address] Care Team Providers Care Plate Embosser Name Role Phone Unavailable Primary Care Provider Unavailabl e Reason for Referral * Diagnostic Imaging (Routine) - Pending Review Specialty Diagnoses / Procedures Referred By Ashly thomson Referred To Contact Maternal and Medicine Diagnoses Poor growth affecting management of mother in third trimester, single or unspecified fetus Procedures US MFM with or without consult Maria Luisa Patel MD [address] [facility] [address] [address] Phone: tel: fax: Maternal- Medicine at [facility] [address] [place] [address] Phone: tel: fax: Referral ID Status Reason Start Date Expiration Date V isits Requested Visits Authorized [id number] Pending Review 06/20/2025 06/20/2026 1 1 Encounter Details Date Type Department Care Team (Late st Contact Info) Description 06/20/2025 Orders Only Maternal- Medicine at [facility] [address] [place] [address] Marii Yoo RN Poor growth [...] Description 07/02/2025 3:30 PM EDT Appointment [facility] - [facility] US Imaging [address] [place] [address] Scheduled Orders Name Type Priority Associated Diagnoses Orde r Schedule US [facility] with or without consult Imaging Routine Poor growth affecting management of mother in third trimester, single or unspecified fetus Expected: 06/20/2026 (Approximate), Expires: 06/20/2026 documented as of this encounter Visit Diagnoses Diagnosis Poor growth affecting management of mother in third trimester, single or unspecified fetus- Primary documented in this encounter
--- OUTSIDE RECORDS SUMMARY | 2025-06-26 20:14 | XMS_ITS | Encounter Summary ---
Author Organization [facility] Address [address] [place] [address] Care Team Providers Care Non Destructive Testing Specialist Name Role Phone Unallocated, Noms Provider Primary Care Provi krissy Encounter Details Date Type Department Care Team (Late st Contact Info) Description 08/10/2024 Abstract ARJUN PANG [address] [place] [address] Jose Rodriguez DO [address] [facility] [address] Josué [place], [facility] Social History Tobacco Use Types Packs/Day [...] EDT Routine ARJUN PANG [address] [place] [address] Megan Aranda, MEDICAL HISTORIAN [address] [place] [address] documented as of this encounter Visit Diagnoses Not on filedocumented in this encounter Care Teams Non Destructive Testing Specialist Relationship Specialty Start Date End Date Unallocated, Noms Provider, [address] [place] [address] PCP - General Family Medicine 08/03/24 documented as of this encounter
--- OUTSIDE RECORDS SUMMARY | 2025-06-26 20:14 | XMS_ITS | Encounter Summary ---
Author Organization [facility] tem Address [facility] [id number] [address] [place] [address] Care Team Providers Care Time Study Technologist Name Role Phone Unavailable Primary Care Provider Unavailabl e Encounter Details Date Type Department Care Team (Latest Contact Info) Description 06/24/2025 Travel Social History Tobacco Use Types Packs/Day [...] Description 07/02/2025 3:30 PM EDT Appointment [facility] US Imaging [address] [place] [address] documented as of this encounter Visit Diagnoses Not on filedocumented in this encounter
--- OUTSIDE RECORDS SUMMARY | 2025-06-26 20:14 | XMS_ITS | Encounter Summary ---
Author Organization [facility] Address [address] [place] [address] Care Team Providers Care Board Lining Machine Operator Name Role Phone Unallocated, Noms Provider Primary Care Provi krissy Encounter Details Date Type Department Care Team (Late Contact Info) Description 06/12/2025 Bamboo flowsheet ARJUN PANG [address] [facility] [place] [address] Rossana Ramos PA [address] [place], [facility] [...] 9:40 AM EDT Routine NOMMay PANG [address] [facility] [place] [address] Megan Aranda [address] [place] [address] documented as of this encounter Visit Diagnoses Not on filedocumented in this encounter Care Teams Board Lining Machine Operator Relationship Specialty Start Date End Date Unallocated, Noms Provider, [address] [place] [address] PCP - General Family Medicine 08/03/24 documented as of this encounter
--- OUTSIDE RECORDS SUMMARY | 2025-06-26 20:14 | XMS_ITS | Encounter Summary ---
Author Organization [facility] Address [address] [place] [address] Care Team Providers Care Food Storeroom Clerk Name Role Phone Unallocated, Noms Provider Primary Care Provi krissy Encounter Details Date Type Department Care Team (Late st Contact Info) Description 06/06/2025 Results Follow-Up ARJUN [place] OBGYN [address] [facility] [address] [place] [address] Glenna Butler LPN [address] [place] [address] OB 14+ weeks anatomy scan [...] Info) Description 07/04/2025 9:40 AM EDT Routine NOMJt [place] O[facility] [address] [facility] [facility] [place] [address] Megan Aranda, VLAD [address] [facility] [address] [place] [address] documented as of this encounter Visit Diagnoses Not on filedocumented in this encounter Care Teams Food Storeroom Clerk Relationship Specialty Start Date End Date Unallocated, Nomjt Vo MD [address] [place] [address] PCP - General Family Medicine 08/03/24 documented as of this encounter
--- OUTSIDE RECORDS SUMMARY | 2025-06-26 20:14 | XMS_ITS | Encounter Summary ---
Author Organization [facility] Address [address] [place] [address] Care Team Providers Care Sports Reporter Name Role Phone Unallocated, Noms Provider Primary Care Provi krissy Encounter Details Date Type Department Care Team (Late Contact Info) Description 03/28/2025 Abstract NOMMay PANG [address] [facility] [place] [address] Jose Rodriguez DO [address] [facility] [address] Josué [place], [place] [address] Social History Tobacco Use Types Packs/Day Years [...] 9:40 AM EDT Routine NOMMay PANG [address] [facility] [place] [address] Megan Aranda, VLAD [address] [place] [address] documented as of this encounter Visit Diagnoses Not on filedocumented in this encounter Care Teams Sports Reporter Relationship Specialty Start Date End Date Unallocated, Noms Provider, [address] [place] [address] PCP - General Family Medicine 08/03/24 documented as of this encounter
--- OUTSIDE RECORDS SUMMARY | 2025-06-26 20:14 | XMS_ITS | Encounter Summary ---
Author Organization [facility] tem Address [id number] [address] [place] [address] Care Team Providers Care Money Market Clerk Name Role Phone Unavailable Primary Care [...] Info) Description 07/02/2025 3:30 PM EDT Appointment [facility] US Imaging [address] [place] [address] documented as of this encounter Visit Diagnoses Not on filedocumented in this encounter
--- OUTSIDE RECORDS SUMMARY | 2025-06-26 20:14 | XMS_ITS | Encounter Summary ---
Author Organization [facility] Address [address] [place] [address] Care Team Providers Care Track Moving Machine Operator Name Role Phone Unallocated, Noms Provider Primary Care Provi krissy Encounter Details Date Type Department Care Team (Late Contact Info) Description 06/05/2025 Abstract ARJUN PANG [address] [facility] [place] [address] Jose Rodriguez DO [address] [facility] [address] Josué [place], [place] [address] Social History Tobacco Use Types Packs/Day Years [...] Routine NOMMay PANG [address] [facility] [place] [address] Megan Aranda, VLAD [address] [place] [address] documented as of this encounter Visit Diagnoses Not on filedocumented in this encounter Care Teams Track Moving Machine Operator Relationship Specialty Start Date End Date Unallocated, Noms Provider, [address] [place] [address] PCP - General Family Medicine 08/03/24 documented as of this encounter
--- OUTSIDE RECORDS SUMMARY | 2025-06-26 20:14 | XMS_ITS | Encounter Summary ---
Author Organization [facility] Address [address] [place] [address] Care Team Providers Care Registered Dietitian Name Role Phone Unallocated, Noms Provider Primary Care Provi krissy Encounter Details Date Type Department Care Team (Late st Contact Info) Description 06/15/2025 Clinisync Result Encounter [facility]S External Department Unsolicited Collin Leach PA [address] [facility] [address] [place], [facility] Social History Tobacco Use [...] AM EDT Routine [facility]S [facility] OBGYN [address] [facility] [place] [address] Megan Aranda, ARMHOLE RAISER LOCKSTITCH [address] [facility] [address] [place] [address] documented as of this encounter Procedures Procedure Name Priority Date/Time Associated Diagnosis Comments US OB BPP W NON-STRESS 06/15/2025 12:51 PM EDT documented in this encounter Results * US OB BPP W NON-STRESS (06/15/2025 12:51 PM EDT) Anatomical Region Laterality Modality Other 06/15/2025 12:5 1 PM EDT Narrative 06/15/2025 12:54 PM EDT [address] [address] Ultrasound Report Signed Patient: VIMAL PIZANO MR#: [id number] : 2000 Acct:[id number] Age/Sex: 25 / F ADM Date: 06/15/25 Loc: [facility] [address]: Collin Leach Ordering Physician: Collin Leach Date of Service: 06/15/25 Procedure(s): US OB BPP w non-stress Accession Number(s): [id number] cc: Collin Leach; LUIS SEE [address] [address] Patient Name: VIMAL PIZANO MRN: [id number] date: 2000 Sex: F Assigned Patient Location: Current Patient Location: Accession/Order Number: [id number] Exam Date: 06/15/2025 11:07 Report Date: 06/15/2025 12:51 At the request of: COLLIN LEACH Procedure: US OB BPP w non-stress Biophysical profile. Reason for exam: Gestational diabetes COMPARISON: 06/08/2025 TECHNIQUE: Transabdominal imaging of the gravid uterus was obtained. FINDINGS: The keymodule assembly machine tender reports a BPP of 8 out of 8. DANYA is normal at 11.0 cm. heart rate 136 bpm. US/US OB BPP w non-stress IMPRESSION: BPP 8 out of 8. Impression dictated by: Amadou Carias M.D. 06/15/2025 12:51 PM Dictation Location: [id number] Electronically authenticated by: [id number] Y Date: 06/15/2025 12:51 Dictated By: Amadou Carias M.D. Signed By: 06/15/25 1254 DD/ 1251 TD/TT: Electrolytic Etcher: Procedure Note Radiology, Radiologist, - 06/15/2025 [place] [address] Ultrasound Report Signed Patient: VIMAL PIZANO MMR#: [id number] : 2000Acct:[id number] Age/Sex: 25 FADM Date: 06/15/25 Loc: [facility] 251-[address]: Collin Leach Ordering Physician: Collin Leach Date of Service: 06/15/25 Procedure(s): US OB BPP w non-stress Accession Number(s): [id number] cc: Collin Leach; LUIS SEE [place] [address] Patient Name: VIMAL PIZANO MRN: [id number] date: 2000 Sex: F Assigned Patient Location: US Current Patient Location: US Accession/Order Number: [id number] Exam Date: 06/15/2025 11:07 Report Date: 06/15/2025 12:51 At the request of: COLLIN LEACH Procedure: US OB BPP w non-stress Biophysical profile. Reason for exam: Gestational diabetes COMPARISON: 06/08/2025 TECHNIQUE: Transabdominal imaging of the gravid uterus was obtained. FINDINGS: The keymodule assembly machine tender reports a BPP of 8 out of 8. DANYA is normal at11.0 cm. heart rate 136 bpm. US/US OB BPP w non-stress IMPRESSION: BPP 8 out of 8. Impression dictated by: Amadou Carias M.D. 06/15/2025 12:51 PM Dictation Location: [email or web address] Electronically authenticated by: [id number] Y Date: 2:51 Dictated By: Amadou Carias M.D. Signed By:06/15/25 1254 DD/ 1251 TD/TT: Electrolytic Etcher: us [facility]lin [facility] Final Result documented in this encounter Visit Diagnoses Not on filedocumented in this encounter Care Teams Registered Dietitian Relationship Specialty Start Date End Date Unallocated, Noms Provider, [address] [place] [address] PCP - General Family Medicine 08/03/24 documented as of this encounter
--- OUTSIDE RECORDS SUMMARY | 2025-06-26 20:14 | XMS_ITS | Encounter Summary ---
Author Organization [facility] Address [address] [place] [address] Care Team Providers Care Chemistry Department Chair Name Role Phone Unallocated, Noms Provider Primary Care Provi krissy Encounter Details Date Type Department Care Team (Late st Contact Info) Description 03/06/2025 Orders Only ARJUN PANG [address] [place] [address] Kavitha Almanza MA Social History Tobacco [...] 9:40 AM EDT Routine NOMMay PANG [address] [place] [address] Megan Aranda, VLAD [address] [place] [address] documented as of this encounter Procedures Procedure Name Priority Date/Time Associated Diagnosis Comments PAP SMEAR Routine 02/20/2025 12:00 AM EDT documented in this encounter Results * Pap Smear (02/20/2025 12:00 AM EDT) Swab Cervical swab / Unknown us Rossana [facility] CYTOLOGY ORDERABLES Final Re sult EXTERNAL LAB documented in this encounter Visit Diagnoses Not on filedocumented in this encounter Care Teams Chemistry Department Chair Relationship Specialty Start Date End Date Unallocated, Noms Provider, [address] [place] [address] PCP - General Family Medicine 08/03/24 documented as of this encounter
--- OUTSIDE RECORDS SUMMARY | 2025-06-26 20:14 | XMS_ITS | Clinical Summary ---
Author Organization [facility] tem Address [id number] [address] [place] [address] Care Team Providers Care Architectural Project Manager Name Role Phone Unavailable Primary Care [...] Encounters Date Type Department Care Team Description 06/24/2025 Travel 06/20/2025 Orders Only Maternal- Medicine at [facility] [address] [place] [phone] Marii Yoo, RN Poor growth affecting management of mother in third trimester, single or unspecified fetus (Primary Dx) 06/18/2025 3:28 PM EDT - 06/18/2025 11:59 PM EDT Hospital Encounter [facility] - [facility] US Imaging [address] [place] [address] Intrauterine growth restriction affecting care of mother, unspecified trimester, not applicable or unspecified fetus Discharge Disposition: Home 06/18/2025 Travel 06/11/2025 7:48 AM EDT - 06/11/2025 11:59 PM EDT Hospital Encounter [facility] - [facility] US Imaging [address] [place] [address] Poor growth affecting management of mother in third trimester, single or unspecified fetus; Gestational diabetes mellitus (GDM) in third trimester, gestational diabetes method of control unspecified Discharge Disposition: Home 06/11/2025 Travel 06/09/2025 Travel 06/05/2025 Telephone Maternal- Medicine at [facility] [address] [place] [address] 06/04/2025 2:00 PM EDT Telemedicine Maternal- Medicine at [facility] [address] [place] [address] Chris Martin MD Poor growth affecting management of mother in third trimester, single or unspecified fetus (Primary Dx) 06/04/2025 12:41 PM EDT - 06/04/2025 11:59 PM EDT Hospital Encounter [facility] - Ultrasound [address] [place] [address] Mackenzie Rodriguez, Screening, , for anatomic survey Discharge Disposition: Home 06/04/2025 Orders Only Maternal- Medicine at [facility] [address] [place] [address] Marii Yoo, RN Poor growth affecting management of mother in third trimester, single or unspecified fetus (Primary Dx); Gestational diabetes mellitus (GDM) in third trimester, gestational diabetes method of control unspecified 06/04/2025 Travel 05/31/2025 Orders Only Maternal- Medicine at [facility] [address] [place] [address] Ref Prov, Not In System 05/31/2025 Abstract Maternal- Medicine at [facility] [address] [address] External, Scanning Provider 05/28/2025 Telephone Maternal- Medicine at [address] [phone] Chante Muse LD 05/21/2025 Telephone Maternal- Medicine at [address] [address] Chante Muse LD 05/13/2025 1:30 PM EDT Support Visit Maternal- Medicine at [address] [phone] Marjorie Rico, RN Xenia Rayo RD Gestational diabetes mellitus (GDM) in third trimester, gestational diabetes method of control unspecified 05/13/2025 Travel 05/10/2025 Abstract Maternal- Medicine at [address] [phone] External, Scanning Provider from Last 3 Months [...] Info) Description 07/02/2025 3:30 PM EDT Appointment [facility] - [facility] US Imaging [address] [place] [address] Health Maintenance Due Date Last [...] [facility] OB FOLLOW-UP, 1 FETUS Routine 06/24/2025 3:06 PM EDT Poor growth affecting management of mother [...] Last 3 Months Results * US MFM OB FOLLOW-UP, 1 FETUS (06/24/2025 3:06 PM EDT) Only the most recent of4 resultswithin the time period is included. Anatomical Region Laterality Modality OB-GEOMORPHOLOGY TEACHER Ultrasound 06/24/2025 2:19 PM EDT Narrative 06/24/2025 3:22 PM EDT NAME: JERICA CELIS : 2000 SEX: F Accession Number: [id number] ORDERING PHYSICIAN: CHRIS MARTIN REFERRING PHYSICIAN: MACKENZIE RODRIGUEZ Coding ----- --------- Procedures 10194: Ultrasound, uterus, real time with image documentation, follow up, transabdominal approach per fetus 58865: Doppler velocimetry, ; umbilical artery Indication ----- [...] --------- LMP on: 10/15/2024 GA by LMP 36 w + 0 d LYDIA by LMP: 07/22/2025 Previous Ultrasound on: 12/14/2024 Type of prior assessment: GA GA at prior assessment date 8 w + 3 d GA by previous U/S 35 w + 6 d LYDIA by previous Ultrasound: 07/23/2025 Ultrasound examination on: 06/24/2025 GA by U/S based upon: AC, BPD, Femur, HC GA by U/S 32 w + 2 d LYDIA by U/S: 08/17/2025 Assigned: based on the LMP, selected on 06/04/2025 Assigned GA (weeks days) 36 w + 0 d Assigned LYDIA: 07/22/2025 General Evaluation ----- --------- Cardiac activity Present. FHR 142 bpm. movements: visualized. Presentation: breech Placenta: Placental site: posterior, previously documented away from cervical os Umbilical cord: Cord vessels: 3 vessel cord. Insertion site: not examined Amniotic fluid: Amount of AF: normal amount. MVP 4.1 cm Biometry ----- --------- Standard BPD 77.8 mm 31w 2d <1% Hadlock OFD 106.9 mm 35w 2d 31% Khanh HC 296.9 mm 32w 6d <1% Hadlock Cerebellum tr 47.0 mm 35w 3d 33% Hill AC 289.0 mm 32w 6d 2% Hadlock Femur 61.5 mm 31w 6d <1% Hadlock Humerus 55.7 mm 32w 3d 4% Khanh HC / AC 1.03 EFW 1,978 g 1% Hadlock EFW (lb) 4 lb EFW (oz) 6 oz EFW by: Hadlock ([id number]-YY-OH-FL) Extended Tibia 55.4 mm 32w 4d 3% Khanh Foot 61.3 mm <1% Chitty Front End Technician 2.8 mm CM 6.0 mm 12% Nicolaides Head / Face / Neck Cephalic index 0.73 <1% Nicolaides Extremities / Bony Struc FL / BPD 0.79 FL / HC 0.21 FL / AC 0.21 Other Structures FHR 142 bpm Anatomy ----- --------- The following structures appear normal: Head/Neck: Cranium. Lateral ventricles. Cavum septi pellucidi. Cerebellum. Cisterna magna. Heart/Thorax: 4-chamber view. Cardiac position. Cardiac axis. Cardiac size. Cardiac rhythm. Diaphragm. Abdomen: Stomach. Kidneys. Bladder. Doppler ----- --------- Umbilical Artery: normal PI 0.98 84% Ebbing PS 49.88 cm/s 53% Ebbing TAmax 32.96 cm/s 48% Ebbing MD 16.81 cm/s S / D 2.79 72% Sherry Maternal Structures ----- --------- Uterus Visualized Cervix Suboptimal Approach - Transabdominal Right Ovary Not visualized Left Ovary Not visualized Cul de Sac Suboptimal Impression ----- --------- Single live intrauterine at 36w 0d with known severe FGR. Severe growth restriction on repeat growth today. EFW measures at the 1%, AC measures at the 2%.. Amniotic fluid MVP measures 4.1 cm. Umbilical artery S/D ratio in normal range. The HC measures less than the 3rd percentile for the gestational age but reference biometric measurement within 2 SD of the mean (Kip and colleagues, 1984). The femur is measuring less than the 3rd percentile. The femur to foot ratio = 1, which is within normal limits, though limited by advanced gestational age. Placentomegaly identified. Thickness measures 6cm. Recommendations ----- --------- Please see [facility] recommendations from prior clinical and/or ultrasound report documentation. Subsequent follow up or other follow up as clinically determined by primary OB provider unless otherwise specified by M. Results forwarded to ordering provider so they can follow up with the patient as necessary. Procedure Note Wendy Miranda MD - 06/24/2025 NAME: JERICA CELIS : 2000 SEX: F Accession Number: [id number] ORDERING PHYSICIAN: CHRIS MARTIN REFERRING PHYSICIAN: MACKENZIE RODRIGUEZ Coding ----- --------- Procedures 70549: Ultrasound, uterus, real time with imagedocumentation, follow up, transabdominal approach per fetus 65662: Doppler velocimetry, ; umbilical artery Indication ----- [...] --------- LMP on: 10/15/2024 GA by LMP 36 w + 0 d LYDIA by LMP: 07/22/2025 Previous Ultrasound on: 12/14/2024 Type of prior assessment: GA GA at prior assessment date 8 w + 3 d GA by previous U/S 35 w + 6 d LYDIA by previous Ultrasound: 07/23/2025 Ultrasound examination on: 06/24/2025 GA by U/S based upon: AC, BPD, Femur, HC GA by U/S 32 w + 2 d LYDIA by U/S: 08/17/2025 Assigned: based on the LMP, selected on 06/04/2025 Assigned GA (weeks days) 36 w + 0 d Assigned LYDIA: 07/22/2025 General Evaluation ----- --------- Cardiac activity Present. FHR 142 bpm. movements: visualized.Presentation: breech Placenta: Placental site: posterior, previously documented away fromcervical os Umbilical cord: Cord vessels: 3 vessel cord. Insertion site: notexamined Amniotic fluid: Amount of AF: normal amount. MVP 4.1 cm Biometry ----- --------- Standard BPD 77.8 mm 31w 2d <1% Hadlock OFD 106.9 mm 35w 2d 31% Khanh HC 296.9 mm 32w 6d <1% Hadlock Cerebellum tr 47.0 mm 35w 3d 33% Hill AC 289.0 mm 32w 6d 2% Hadlock Femur 61.5 mm 31w 6d <1% Hadlock Humerus 55.7 mm 32w 3d 4% Khanh HC / AC 1.03 EFW 1,978 g 1% Hadlock EFW (lb) 4 lb EFW (oz) 6 oz EFW by: Hadlock (QXU-VH-AP-FL) Extended Tibia 55.4 mm 32w 4d 3% Khanh Foot 61.3 mm <1% Chitty Front End Technician 2.8 mm CM 6.0 mm 12% Nicolaides Head / Face / Neck Cephalic index 0.73 <1% Nicolaides Extremities / Bony Struc FL / BPD 0.79 FL / HC 0.21 FL / AC 0.21 Other Structures FHR 142 bpm Anatomy ----- --------- The following structures appear normal: Head/Neck: Cranium. Lateral ventricles. Cavum septi pellucidi. Cerebellum.Cisterna magna. Heart/Thorax: 4-chamber view. Cardiac position. Cardiac axis. Cardiacsize. Cardiac rhythm. Diaphragm. Abdomen: Stomach. Kidneys. Bladder. Doppler ----- --------- Umbilical Artery: normal PI 0.98 84% Ebbing PS 49.88 cm/s 53% Ebbing TAmax 32.96 cm/s 48% Ebbing MD 16.81 cm/s S / D 2.79 72% Sherry Maternal Structures ----- --------- Uterus Visualized Cervix Suboptimal Approach - Transabdominal Right Ovary Not visualized Left Ovary Not visualized Cul de Sac Suboptimal Impression ----- --------- Single live intrauterine at 36w 0d with known severe FGR. Severe growth restriction on repeat growth today. EFW measures atthe 1%, AC measures at the 2%.. Amniotic fluid MVP measures 4.1 cm. Umbilical artery S/D ratio in normal range. The HC measures less than the 3rd percentile for the gestational agebut reference biometric measurement within 2 SD of the mean (Kip and colleagues, 1984). The femur is measuring less than the 3rd percentile. The femur to footratio = 1, which is within normal limits, though limited by advanced gestational age. Placentomegaly identified. Thickness measures 6cm. Recommendations ----- --------- Please see MFM recommendations from prior clinical and/or ultrasoundreport documentation. Subsequent follow up or other follow up as clinically determined byprimary OB provider unless otherwise specified by MFM. Results forwarded to ordering provider so they can follow up with thepatient as necessary. us Chris Martin MD [facility] [place] ORDERABLES Final Resul t * Glucose random or fasting- POCT (05/13/2025) External Glucose Fasting Or Random (Fbs) 80 MANUALLY TRANSCRIBED RESULTS Blood Venous blood / Unknown 05/13/2025 us Wendy Miranda MD LAB BLOOD ORDERABLES Final Resul t Performing Organization Address City/[facility] Co de Phone Number MANUALLY TRANSCRIBED RESULTS * 2nd hr Glucose Tolerance 100 gm load (05/04/2025) Glucose Tolerance Test 2 Hour 186 MANUALLY TRANSCRIBED RESULTS Blood Venous blood / Unknown us Not In System Ref Prov LAB BLOOD ORDERABLES Kayli l Result Performing Organization Address [facility] Co de Phone Number MANUALLY TRANSCRIBED RESULTS * Glucose tolerance, 1 hour (05/04/2025) Glucose Tolerance Test 1 Hour 234 MANUALLY TRANSCRIBED RESULTS Blood Venous blood / Unknown us Not In System Ref Prov LAB BLOOD ORDERABLES Kayli l Result Performing Organization Address [facility] de Phone Number MANUALLY TRANSCRIBED RESULTS * [...] ORDERABLES Kayli l Result Performing Organization Address City/[facility] Co de Phone Number MANUALLY TRANSCRIBED RESULTS from Last 3 Months Insurance [facility] [employer]
--- OUTSIDE RECORDS SUMMARY | 2025-06-26 20:14 | XMS_ITS | Encounter Summary ---
Author Organization [facility] Address [address] [place] [address] Care Team Providers Care Spine Nurse Name Role Phone Unallocated, Noms Provider Primary Care Provi krissy Encounter Details Date Type Department Care Team (Late st Contact Info) Description 08/10/2024 Clinisync Result Encounter [facility] External Department Unsolicited Mackenzie Rodriguez DO [address] [place], [facility] [...] Description 07/04/2025 9:40 AM EDT Routine [facility] Rafai PANG [address] [place] [address] Megan Aranda, VLAD [address] [place] [address] documented as of this encounter Procedures Procedure Name Priority Date/Time Associated Diagnosis Comments US OB TRANSVAGINAL 08/10/2024 8: 44 AM EST documented in this encounter Results * US OB TRANSVAGINAL (08/10/2024 8:44 AM EST) Anatomical Region Laterality Modality Other 08/10/2024 8:44 AM EST Narrative 08/10/2024 8:47 [place] [address] Ultrasound Report Signed Patient: VIMAL PIZANO MR#: [id number] : 2000 Acct:[id number] Age/Sex: 24 / F ADM Date: 08/10/24 Loc: SURGOUT Attending Dr: Mackenzie Rodriguez D.O. Ordering Physician: Mackenzie Rodriguez D.O. Date of Service: 08/10/24 Procedure(s): US OB transvaginal Accession Number(s): [id number] cc: LUIS SEE ; Mackenzie Rodriguez D.O. [address] [address] Patient Name: VIMAL PIZANO MRN: [id number] date: 2000 Sex: F Assigned Patient Location: [facility] Current Patient Location: [facility] Accession/Order Number: [id number] Exam Date: 08/10/2024 08:10 Report Date: 08/10/2024 [...] M.D. Signed By: 08/10/24846 DD/ 3 TD/TT: Filter Worker: Procedure Note Radiology, Radiologist, MD - 08/10/2024 [place] [address] Ultrasound Report Signed Patient: VIMAL PIZANO MMR#: [id number] : 2000Acct:[id number] Age/Sex: 24 / FADM Date: 08/10/24 Loc: SURGOUT Attending Dr: Mackenzie Rodriguez D.O. Ordering Physician: Mackenzie Rodriguez D.O. Date of Service: 08/10/24 Procedure(s): US OB transvaginal Accession Number(s): [id number] cc: LUIS SEE ; Mackenzie Rodriguez D.O. The [place] [id number] Patient Name: VIMAL PIZANO MRN: [id number] date: 2000 Sex: F Assigned Patient Location: [facility] Current Patient Location: [facility] Accession/Order Number: [id number] Exam Date: 08/10/2024 08:10 Report Date: 08/10/2024 [...] Lavon Herrera M.D. Signed By:08/10/2447 DD/ TD/TT: Filter Worker: us Mackenzie Michael DO [facility] Final Result documented in this encounter Visit Diagnoses Not on filedocumented in this encounter Care Teams Spine Nurse Relationship Specialty Start Date End Date Unallocated, Noms Provider, [address] [place] [address] PCP - General Family Medicine 08/03/24 documented as of this encounter
--- OUTSIDE RECORDS SUMMARY | 2025-06-26 20:14 | XMS_ITS | Encounter Summary ---
Author Organization [facility] Address [address] [place] [address] Care Team Providers Care Child Psychologist Name Role Phone Unallocated, Noms Provider Primary Care Provi krissy Encounter Details Date Type Department Care Team (Late st Contact Info) Description 05/07/2025 Results Follow-Up ARJUN [place] OBGYKeegan [address] [place] [address] Glenna Butler LPN [address] [place] [address] ALL CBC WITH AUTO DIFF, [...] Description 07/04/2025 9:40 AM EDT Routine ARJUN [place] OBGYN [address] [place] [address] Megan Aranda, VLAD [address] [facility] [address] [place] [address] documented as of this encounter Visit Diagnoses Not on filedocumented in this encounter Care Teams Child Psychologist Relationship Specialty Start Date End Date Unallocated, Arjun Vo MD [address] [place] [address] PCP - General Family Medicine 08/03/24 documented as of this encounter
--- OUTSIDE RECORDS SUMMARY | 2025-06-26 20:14 | XMS_ITS | Encounter Summary ---
Author Organization [facility] Address [address] [place] [address] Care Team Providers Care Data Entry Associate Name Role Phone Unallocated, Noms Provider Primary Care Provi krissy Encounter Details Date Type Department Care Team (Late Contact Info) Description 05/08/2025 Abstract ARJUN PANG [address] [place] [address] Jose Rodriguez DO [address] [facility] [address] [place], [facility]11 Social History Tobacco [...] 9:40 AM EDT Routine NOMMay PANG [address] [place] [address] Megan Aranda, [address] [place] [phone] documented as of this encounter Visit Diagnoses Not on filedocumented in this encounter Care Teams Data Entry Associate Relationship Specialty Start Date End Date Unallocated, Noms Provider, [address] [place] [address] PCP - General Family Medicine 08/03/24 documented as of this encounter
== END 2025-06-26 20:12 | disposition home or self-care (01) ==
LOC: LAB 20:11
PROVIDERS: PCP Nurse Practitioner Family; Visit Provider Nurse Practitioner Family
DX: Z34.93 Encounter for supervision of normal pregnancy, unspecified, third trimester (principal); Z3A.36 36 weeks gestation of pregnancy
CPT/HCPCS: 87081

== ENCOUNTER 2025-06-29 11:04 | Outpatient (OUT) | payer BC, OTHER, SELFPAY ==
--- OUTSIDE RECORDS SUMMARY | 2025-06-18 15:28 | XMS_ITS | Encounter Summary ---
Author Organization [facility] tem Address [id number] [address] [place] [address] Care Team Providers Care Shift Supervisor Melting Name Role Phone Unavailable Primary Care Provider Unavailabl e Reason for Referral * Diagnostic Imaging (Routine) - Pending Review Specialty Diagnoses / Procedures Referred By Richaac t Referred To Contact Maternal and Medicine Diagnoses Intrauterine growth restriction affecting care of mother, unspecified trimester, not applicable or unspecified fetus Procedures US MFM with or without consult Maria Luisa Patel MD [address], [address] [place] [address] Phone: tel: fax: Maternal- Medicine at [address] [address] Phone: tel: fax: Referral ID Status Reason Start Date Expiration Date V isits Requested Visits Authorized [id number] Pending Review 06/17/2025 06/17/2026 1 1 Reason for Visit * Diagnostic Imaging (Routine) - Pending Review Specialty Diagnoses / Procedures Referred By Contac t Referred To Contact Maternal and Medicine Diagnoses Intrauterine growth restriction affecting care of mother, unspecified trimester, not applicable or unspecified fetus Procedures US MFM with or without consult Maria Luisa Patel MD [address], [address] [place] [address] Phone: tel: fax: Maternal- Medicine at [facility] [address] [place] [address] Phone: tel: fax: Referral ID Status Reason Start Date Expiration Date V isits Requested Visits Authorized [id number] Pending Review 06/17/2025 06/17/2026 1 1 Encounter Details Date Type Department Care Team (Latest Contact Info) Description 06/18/2025 3:28 PM EDT - 06/18/2025 11:59 PM EDT Hospital Encounter [facility] US Imaging [address] [place] [address] Intrauterine growth restriction affecting care of mother, unspecified trimester, not applicable or unspecified fetus Discharge Disposition: Home Social History Tobacco Use [...] Info) Description 07/02/2025 3:30 PM EDT Appointment [facility] US Imaging [address] [place] [address] documented as of this encounter Procedures Procedure Name Priority Date/Time Associated Diagnosis Comments US MFM AMNIOTIC FLUID VOLUME ASSESSMENT Routine 06/18/2025 4:50 PM EDT Intrauterine growth restriction affecting care of mother, unspecified trimester, not applicable or unspecified fetus documented in this encounter Results * US MFM AMNIOTIC FLUID VOLUME ASSESSMENT (06/18/2025 4:50 PM EDT) Anatomical Region Laterality Modality OB-MOTION STUDY TECHNICIAN Ultrasound 06/18/2025 4:12 PM EDT Narrative 06/18/2025 5:44 PM EDT NAME: JERICA CELIS : 2000 SEX: F Accession Number: [id number] ORDERING PHYSICIAN: MARIA LUISA PATEL REFERRING PHYSICIAN: MACKENZIE SANDERSON Coding ----- --------- Procedures 92921: Ultrasound, uterus, real time with image documentation, limited one or more fetuses 62899: Doppler velocimetry, ; umbilical artery Indication ----- [...] --------- LMP on: 10/15/2024 GA by LMP 35 w + 1 d LYDIA by LMP: 07/22/2025 Previous Ultrasound on: 12/14/2024 Type of prior assessment: GA GA at prior assessment date 8 w + 3 d GA by previous U/S 35 w + 0 d LYDIA by previous Ultrasound: 07/23/2025 Assigned: based on the LMP, selected on 06/04/2025 Assigned GA (weeks days) 35 w + 1 d Assigned LYDIA: 07/22/2025 General Evaluation ----- --------- Cardiac activity Present. FHR 134 bpm. Presentation: variable Placenta: Placental site: posterior, previously documented away from cervical os Amniotic fluid: Amount of AF: normal amount. MVP 2.6 cm Doppler ----- --------- Umbilical Artery: normal PI 1.08 93% Jose Antoniobing PS -37.52 cm/s TAmax -24.57 cm/s MD -13.83 cm/s S / D 2.92 75% Sherry Maternal Structures ----- --------- Uterus Visualized Cervix Suboptimal Approach - Transabdominal Right Ovary Not visualized Left Ovary Not visualized Cul de Sac Suboptimal Impression ----- --------- Single live intrauterine with a working diagnosis of FGR. Umbilical artery Doppler S/D ratio in normal range. Amniotic fluid MVP measures 2.6 cm. Previously seen placentomegaly measures 6.8 cm on today's exam. Recommendations ----- --------- The patient is scheduled in 1 week(s) for growth and Doppler. Subsequent follow up or other follow up as clinically determined by primary OB provider unless otherwise specified by MFM. Results forwarded to ordering provider so they can follow up with the patient as necessary Procedure Note Maria Luisa Patel MD - 06/18/2025 NAME: JERICA CELIS : 2000 SEX: F Accession Number: [id number] ORDERING PHYSICIAN: MARIA LUISA PATEL REFERRING PHYSICIAN: MACKENZIE SNADERSON Coding ----- --------- Procedures 13927: Ultrasound, uterus, real time with imagedocumentation, limited one or more fetuses 58845: Doppler velocimetry, ; umbilical artery Indication ----- [...] --------- LMP on: 10/15/2024 GA by LMP 35 w + 1 d LYDIA by LMP: 07/22/2025 Previous Ultrasound on: 12/14/2024 Type of prior assessment: GA GA at prior assessment date 8 w + 3 d GA by previous U/S 35 w + 0 d LYDIA by previous Ultrasound: 07/23/2025 Assigned: based on the LMP, selected on 06/04/2025 Assigned GA (weeks days) 35 w + 1 d Assigned LYDIA: 07/22/2025 General Evaluation ----- --------- Cardiac activity Present. FHR 134 bpm. Presentation: variable Placenta: Placental site: posterior, previously documented away fromcervical os Amniotic fluid: Amount of AF: normal amount. MVP 2.6 cm Doppler ----- --------- Umbilical Artery: normal PI 1.08 93% Ebbing PS -37.52 cm/s TAmax -24.57 cm/s MD -13.83 cm/s S / D 2.92 75% Sherry Maternal Structures ----- --------- Uterus Visualized Cervix Suboptimal Approach - Transabdominal Right Ovary Not visualized Left Ovary Not visualized Cul de Sac Suboptimal Impression ----- --------- Single live intrauterine with a working diagnosis of FGR. Umbilical artery Doppler S/D ratio in normal range. Amniotic fluid MVP measures 2.6 cm. Previously seen placentomegaly measures 6.8 cm on today's exam. Recommendations ----- --------- The patient is scheduled in 1 week(s) for growth and Doppler. Subsequent follow up or other follow up as clinically determined byprimary OB provider unless otherwise specified by M. Results forwarded to ordering provider so they can follow up with thepatient as necessary us Maria Luisa Patel MD [facility] [place] ORDERABLES Final Re sult documented in this encounter Visit Diagnoses Diagnosis Intrauterine growth restriction affecting care of mother, unspecified trimester, not applicable or unspecified fetus documented in this encounter
--- OUTSIDE RECORDS SUMMARY | 2025-06-19 14:40 | XMS_ITS | Encounter Summary ---
Author Organization [facility] Address [address] [place] [address] Care Team Providers Care Machinery Rigger Name Role Phone Unallocated, Noms Provider Primary Care Provi krissy Reason for Visit * Reason Comments Routine Visit Encounter Details Date Type Department Care Team (Late st Contact Info) Description 06/19/2025 2:40 PM EDT Routine [facility] [place] [facility] [address] [place] [address] Jose Rodriguez DO [address] Josué [place], [facility]11 Third trimester ([facility]); 35 weeks gestation of ([facility]); Diet controlled gestational diabetes mellitus (GDM), antepartum ([facility]); induced hypertension, antepartum ([facility]) Social History Tobacco Use Types Packs/Day [...] to check FSBS. Blood Glucose Monitoring Suppl ([employer] Glucometer) w/Device kit 1 kit, Does not [...] History of blood transfusion Lead poisoning Miscarriage ([facility]) Nonsmoker Post depression HISTORY PAST MEDICAL HISTORY SOCIAL HISTORY Past Medical History: Diagnosis Date Anemia Gestational diabetes ([facility]) History of blood transfusion Lead poisoning Miscarriage ([facility]) Nonsmoker Post depression /anxiety Social [...] nursing note reviewed. Exam conducted with a marine electrician apprentice present. Vitals: Estimated body mass index is 31.89 kg/m?? as calculated from the following: Height as of 01/06/23: 5' 3 . Weight as of this encounter: 180 lb. BP: 142/86 Patient's last menstrual period was 10/15/2024 (exact date). ASSESSMENT & PLAN ICD-10-CM 1. Third trimester ([facility]) Z34.93 POCT urinalysis dipstick manually resulted 2. 35 weeks gestation of ([facility]) Z3A.35 3. Diet controlled gestational diabetes mellitus (GDM), antepartum ([facility]) O24.410 4. induced hypertension, antepartum ([facility]) O13.9 Return OB: Patient presents today for [...] AM EDT Routine [facility] [address] [facility] [place] [address] Megan Aranda NP [address] [place] [phone] documented as of this encounter Procedures Procedure Name Priority Date/Time Associated Diagnosis Comments POCT URINALYSIS DIPSTICK Routine 06/19/2025 3:05 PM EDT Third trimester ([facility]) documented in this encounter Results * [...] antepartum documented in this encounter Care Teams Machinery Rigger Relationship Specialty Start Date End Date Unallocated, Noms Provider, [place] [address] PCP - General Family Medicine 08/03/24 documented as of this encounter
--- OUTSIDE RECORDS SUMMARY | 2025-06-26 09:10 | XMS_ITS | Encounter Summary ---
Author Organization [facility] Address [address] [place] [address] Care Team Providers Care Monomer Recovery Supervisor Name Role Phone Unallocated, Noms Provider Primary Care Provi krissy Reason for Visit * Reason Comments Routine Visit Encounter Details Date Type Department Care Team (Late st Contact Info) Description 06/26/2025 9:10 AM EDT Routine [facility] [place] [facility] [address] [facility] [place] [address] Megan Aranda, VLAD [address] [facility] [address] [place] [address] Third trimester [facility] 36 weeks gestation of ([facility]); Diet controlled gestational diabetes mellitus (GDM), antepartum ([facility]); induced hypertension, antepartum ([facility]) Social History Tobacco Use Types [...] Sign Reading Time Taken Comments Blood Pressure 138/84 06/26/2025 9:32 AM EDT Pulse - - Temperature - - Respiratory Rate - - Oxygen Saturation - - Inhaled Oxygen Concentration - - Weight 82.1 kg (181 lb) 06/26/2025 9:32 AM EDT Height - - Body Mass Index 32.06 01/06/2023 12:00 PM EDT documented in this encounter Progress Notes * Megan Aranda NP - 06/26/2025 9:10 AM EDT Reason for Appointment: Patient ID: Amber Funes is a 25 y.o. female who presents for Routine Visit Patient presents today for Return OB appointment. MEDICATIONS Current Outpatient Medications Medication Instructions Alcohol Swabs (Alcohol Prep Pad) 70 % pads 1 Pad, Topical, Daily, Use four times daily to check FSBS. Blood Glucose Monitoring Suppl (D-[employer] Glucometer) w/Device kit 1 kit, Does not [...] Problems Diagnosis Date Noted induced hypertension, antepartum ([facility]) 05/28/2025 Gestational diabetes mellitus (GDM), antepartum ([facility]) 05/28/2025 Resolved Ambulatory Problems Diagnosis Date Noted No Resolved Ambulatory Problems Past Medical History: Diagnosis Date Anemia Gestational diabetes ([facility]) History of blood transfusion Lead poisoning Miscarriage ([facility]) Nonsmoker Post depression HISTORY PAST MEDICAL HISTORY SOCIAL HISTORY Past Medical History: Diagnosis Date Anemia Gestational diabetes ([facility]) History of blood transfusion Lead poisoning Miscarriage ([facility]) Nonsmoker Post depression /anxiety Social [...] Appearance: Normal appearance. She is well-developed. Genitourinary: Right Adnexa: not tender and no mass present. Left Adnexa: not tender and no mass present. No cervical discharge. Breasts: Breasts are soft. Right: Normal. Left: Normal. HENT: Head: Normocephalic. Nose: Nose normal. Mouth/Throat: Mouth: Mucous membranes are moist. Cardiovascular: Rate and Rhythm: Normal rate and regular rhythm. Pulmonary: Effort: Pulmonary effort is normal. Breath sounds: Normal breath sounds. Abdominal: General: Bowel sounds are normal. There is no distension. Palpations: Abdomen is soft. Tenderness: There is no abdominal tenderness. There is no guarding or rebound. Musculoskeletal: General: No swelling. Normal range of motion. Cervical back: Normal range of motion. Right lower leg: No edema. Left lower leg: No edema. Neurological: General: No focal deficit present. Mental Status: She is alert and oriented to person, place, and time. Skin: General: Skin is warm and dry. Psychiatric: Mood and Affect: Mood normal. Behavior: Behavior normal. Vitals and nursing note reviewed. Exam conducted with a corporate wellness coordinator present. Vitals: Estimated body mass index is 32.06 kg/m?? as calculated from the following: Height as of 01/06/23: 5' 3 . Weight as of this encounter: 181 lb. BP: 138/84 Patient's last menstrual period was 10/15/2024 (exact date). ASSESSMENT & PLAN ICD-10-CM 1. Third trimester ([facility]) Z34.93 POCT urinalysis dipstick manually resulted CULTURE, GROUP B STREP WITH SUSCEPTIBLITY CULTURE, GROUP B STREP WITH SUSCEPTIBLITY 2. 36 weeks gestation of ([facility]) Z3A.36 3. Diet controlled gestational diabetes mellitus (GDM), antepartum ([facility]) O24.410 4. induced hypertension, antepartum ([facility]) O13.9 Patient is doing well but has complaints of being tired and having maternal discomfort due to . Patient verbalized frequent movement and was instructed to perform kick counts three times per day. labor precautions were given, LARC consent was declined, and GBS was obtained. Cervical check was not performed patient declined to at this visit. Orders Placed This Encounter Procedures CULTURE, GROUP B STREP WITH SUSCEPTIBLITY POCT urinalysis dipstick manually resulted Follow Up: Continue NST and BPP. Patient is to return to office in 1 week for routine OB appointment Documented by Jael Nix MA on behalf of: Megan Aranda NP documented in this encounter Plan of Treatment Upcoming Encounters Date Type Department Care Team (Late st Contact Info) Description 07/04/2025 9:40 AM EDT Routine [facility] [place] [facility] [address] [place] [address] Megan Aranda NP [address] [facility] [address] [place] [address] Scheduled Orders Name Type Priority Associated Diagnoses Orde r Schedule CULTURE, GROUP B STREP WITH SUSCEPTIBLITY Lab Routine Third trimester ([facility]) Expected: 06/26/2025, Expires: 06/26/2026 documented as of this encounter Procedures Procedure Name Priority Date/Time Associated Diagnosis Comments POCT URINALYSIS DIPSTICK Routine 06/26/2025 9:32 AM EDT Third trimester ([facility]) documented in this encounter Results * POCT urinalysis dipstick manually resulted (06/26/2025 9:32 AM EDT) Color, UA Yellow Clarity, UA Clear Glucose, UA Negative Negative - 2000(110) ++++ mg/dL Bilirubin, UA Negative Negative - 4(70) +++ mg/dL Ketones, UA Negative Negative - 160(16) ++++ mg/dL Spec Grav, UA 1.025 1 - 1.03 Blood, UA Negative Negative - 50 Jason/mcL pH, UA 6.0 5 - 9 Protein, UA 1+ Negative - 2000(20) ++++ mg/dL Urobilinogen, UA 1.0 0.2 - 12 mg/dL Leukocytes, UA Negative Negative - 500+++ Carlos/mcL Nitrite, UA Negative Negative - Positive Urine 06/26/2025 9:32 AM EDT Megan Aranda NP POINT OF CARE TEST ENTER/EDIT ORDERABLES Final Result documented in this encounter Visit Diagnoses Diagnosis Third trimester ([facility]) state, incidental 36 weeks gestation of ([facility]) Diet controlled gestational diabetes mellitus (GDM), antepartum ([facility]) induced hypertension, antepartum ([facility]) Transient hypertension of , antepartum documented in this encounter Care Teams Monomer Recovery Supervisor Relationship Specialty Start Date End Date Unallocated, Noms Provider, [address] [place] [address] PCP - General Family Medicine 08/03/24 documented as of this encounter
--- OUTSIDE RECORDS SUMMARY | 2025-06-29 11:06 | XMS_ITS | Encounter Summary ---
Author Organization [facility] Address [address] [place] [address] Care Team Providers Care Textile Machine Mechanic Name Role Phone Unallocated, Noms Provider Primary Care Provi krissy Encounter Details Date Type Department Care Team (Late st Contact Info) Description 06/22/2025 Clinisync Result Encounter [facility] External Department Unsolicited Collin Leach PA [address] [facility] [address] [place], [facility]11 Social History Tobacco Use Types [...] AM EDT Routine [facility] Rafia OBGYN [address] [address] Megan Aranda, MACHINE SCALLOP CUTTER [address] [facility] [place] [address] documented as of this encounter Procedures Procedure Name Priority Date/Time Associated Diagnosis Comments US OB BPP W NON-STRESS 06/22/2025 7:28 PM EDT documented in this encounter Results * US OB BPP W NON-STRESS (06/22/2025 7:28 PM EDT) Anatomical Region Laterality Modality Other 06/22/2025 7:28 PM EDT Narrative 06/22/2025 7:31 PM EDT [address] [address] Ultrasound Report Signed Patient: VIMAL PIZANO MR#: [id number] : 2000 Acct:[id number] Age/Sex: 25 / F ADM Date: 06/22/25 Loc: US Attending Dr: Collin Lecah Ordering Physician: Collin Leach Date of Service: 06/22/25 Procedure(s): US OB BPP w non-stress Accession Number(s): [id number] cc: Collin Leach; LUIS SEE [address] [address] Patient Name: VIMAL PIZANO MRN: [id number] date: 2000 Sex: F Assigned Patient Location: [facility] Current Patient Location: Accession/Order Number: [id number] Exam Date: 06/22/2025 10:52 Report Date: 06/22/2025 [...] Acharya M.D. 06/22/2025 7:28 PM Dictation Location: [place] [address] Electronically authenticated by: [id number] Y Date: 06/22/2025 19:28 Dictated By: Heriberto Acharya M.D. Signed By: 06/22/251930 DD/ 27 TD/TT: Superintendent Gas Distribution: Procedure Note Radiology, Radiologist, MD - 06/22/2025 [place] [address] Ultrasound Report Signed Patient: VIMAL PIZANO MMR#: [id number] : 2000Acct:[id number] Age/Sex: 25 / FADM Date: 06/22/25 Loc: US Attending Dr: Collin Leach Ordering Physician: Collin Leach Date of Service: 06/22/25 Procedure(s): US OB BPP w non-stress Accession Number(s): [id number] cc: Collin Leach; LUIS SEE [address] [address] Patient Name: VIMAL PIZANO MRN: [id number] date: 2000 Sex: F Assigned Patient Location: [facility] Current Patient Location: Accession/Order Number: [id number] Exam Date: 06/22/2025 10:52 Report Date: 06/22/2025 [...] Acharya M.D. 06/22/2025 7:28 PM Dictation Location: [place] [address] Electronically authenticated by: [id number] Y Date: 9:28 Dictated By: Heriberto Acharya M.D. Signed By:06/22/251930 DD/ 27 TD/TT: Superintendent Gas Distribution: Collin BISWAS [facility] Final Result documented in this encounter Visit Diagnoses Not on filedocumented in this encounter Care Teams Textile Machine Mechanic Relationship Specialty Start Date End Date Unallocated, Noms Provider, [place] [address] PCP - General Family Medicine 08/03/24 documented as of this encounter
--- OUTSIDE RECORDS SUMMARY | 2025-06-29 11:06 | XMS_ITS | Encounter Summary ---
Author Organization [facility] Address [address] [place] [address] Care Team Providers Care Kerfer Machine Operator Name Role Phone Unallocated, Noms Provider Primary Care Provi krissy Encounter Details Date Type Department Care Team (Late st Contact Info) Description 08/10/2024 Abstract ARJUN PANG [address] [place] [address] Jose Rodriguez DO [address] [facility] [address] [place], [facility]11 Social History Tobacco Use Types [...] EDT Routine ARJUN PANG [address] [place] [address] Megan Aranda, JAMMER HOOKER [address] [place] [address] documented as of this encounter Visit Diagnoses Not on filedocumented in this encounter Care Teams Kerfer Machine Operator Relationship Specialty Start Date End Date Unallocated, Noms Provider, [address] [place] [address] PCP - General Family Medicine 08/03/24 documented as of this encounter
--- OUTSIDE RECORDS SUMMARY | 2025-06-29 11:06 | XMS_ITS | Encounter Summary ---
Author Organization [facility] Address [address] [place] [address] Care Team Providers Care Master Motorcycle Technician Name Role Phone Unallocated, Noms Provider Primary Care Provi krissy Encounter Details Date Type Department Care Team (Late st Contact Info) Description 08/10/2024 Abstract ARJUN PANG [address] [place] [address] Jose Rodriguez DO [address] [facility] [address] [place], [facility]11 [...] EDT Routine ARJUN PANG [address] [place] [address] Megan Aranda, GRAIN COMBINE DRIVER [address] [place] [address] documented as of this encounter Visit Diagnoses Not on filedocumented in this encounter Care Teams Master Motorcycle Technician Relationship Specialty Start Date End Date Unallocated, Noms Provider, [address] [place] [address] PCP - General Family Medicine 08/03/24 documented as of this encounter
--- OUTSIDE RECORDS SUMMARY | 2025-06-29 11:06 | XMS_ITS | Encounter Summary ---
Author Organization [facility] Address [address] [place] [address] Care Team Providers Care Brake Operator Heavy Duty Name Role Phone Vaishali Zapata MD Primary Care Provider Bipin cheng Unallocated, Noms Provider Primary Care Provi krissy Encounter Details Date Type Department Care Team (Late st Contact Info) Description 06/28/2024 Abstract ARJUN PANG [address] [facility] [place] [address] Jose Rodriguez DO [address] [place], [place] [address] Social History Tobacco Use Types Packs/Day Years [...] 9:40 AM EDT Routine ARJUN PANG [address] [employer] [place] [address] Megan Aranda, VLAD [address] [facility] [address] [place] [place] [address] documented as of this encounter Visit Diagnoses Not on filedocumented in this encounter Care Teams Brake Operator Heavy Duty Relationship Specialty Start Date End Date Vaishali Zapata MD [address] [place] [place] [address] PCP - General Family Medicine 02/04/23 08/02/24 Unallocated, Noms Provider, [address] [facility] [place] [address] PCP - General Family Medicine 08/03/24 documented as of this encounter
--- OUTSIDE RECORDS SUMMARY | 2025-06-29 11:06 | XMS_ITS | Encounter Summary ---
Author Organization [facility] tem Address [facility] [id number] [address] [place] [address] Care Team Providers Care Photographer Assistant Name Role Phone Unavailable Primary Care [...] 3:30 PM EDT Appointment [facility] US Imaging [address] [place] [address] documented as of this encounter Visit Diagnoses Not on filedocumented in this encounter
--- OUTSIDE RECORDS SUMMARY | 2025-06-29 11:06 | XMS_ITS | Encounter Summary ---
Author Organization [facility] Address [address] [place] [address] Care Team Providers Care Market Intelligence Consultant Name Role Phone Vaishali Zapata MD Primary Care Provider Bipin cheng Unallocated, Noms Provider Primary Care Provi krissy Encounter Details Date Type Department Care Team (Late st Contact Info) Description 06/29/2024 Abstract ARJUN PANG [address] [place] [address] Jose Rodriguez DO [address] Josué [place], [place] [address] Social History Tobacco Use Types Packs/Day Years [...] 9:40 AM EDT Routine ARJUN PANG [address] [place] [address] Megan Aranda, VLAD [address] [facility] [place] [address] documented as of this encounter Visit Diagnoses Not on filedocumented in this encounter Care Teams Market Intelligence Consultant Relationship Specialty Start Date End Date Vaishali Zapata MD [address] [place] [address] PCP - General Family Medicine 02/04/23 08/02/24 Unallocated, Noms Provider, [address] [facility] [place] [address] PCP - General Family Medicine 08/03/24 documented as of this encounter
--- OUTSIDE RECORDS SUMMARY | 2025-06-29 11:06 | XMS_ITS | Encounter Summary ---
Author Organization [facility] Address [address] [place] [address] Care Team Providers Care Chief Investigator Name Role Phone Unallocated, Noms Provider Primary Care Provi krissy Encounter Details Date Type Department Care Team (Late Contact Info) Description 03/28/2025 Abstract NOMMay PANG [address] [facility] [place] [address] Jose Rodriguez DO [address] [facility] [address] [place]ué [place], [place] [address] Social History Tobacco Use Types Packs/Day Years [...] EDT Routine NOMMay PANG [address] [facility] [place] [address] Megan Aranda, VLAD [address] [place] [address] documented as of this encounter Visit Diagnoses Not on filedocumented in this encounter Care Teams Chief Investigator Relationship Specialty Start Date End Date Unallocated, Noms Provider, [address] [place] [address] PCP - General Family Medicine 08/03/24 documented as of this encounter
--- OUTSIDE RECORDS SUMMARY | 2025-06-29 11:06 | XMS_ITS | Encounter Summary ---
Author Organization [facility] tem Address [facility] [id number] [address] [place] [address] Care Team Providers Care Talking Books Library Clerk Name Role Phone Unavailable Primary Care Provider Unavailabl e Encounter Details Date Type Department Care Team ([facility] Contact Info) Description 05/31/2025 Orders Only [facility] [address] [place] [phone] Ref Prov, [place] [address] Social History Tobacco Use Types Packs/Day Years [...] Info) Description 07/02/2025 3:30 PM EDT Appointment [facility] US Imaging [address] [place] [address] documented as of this encounter Visit Diagnoses Not on filedocumented in this encounter
--- OUTSIDE RECORDS SUMMARY | 2025-06-29 11:06 | XMS_ITS | Encounter Summary ---
Author Organization [facility] Address [address] [place] [address] Care Team Providers Care Garbage Collector Supervisor Name Role Phone Unallocated, Noms Provider Primary Care Provi krissy Encounter Details Date Type Department Care Team (Late Contact Info) Description 05/08/2025 Abstract ARJUN PANG [address] [facility] [place] [address] Jose Rodriguez DO [address] [facility] [address] Josué [place], [facility] Social History Tobacco Use Types Packs/Day [...] 9:40 AM EDT Routine NOMMay PANG [address] [facility] [place] [address] Megan Aranda, VLAD [address] [place] [address] documented as of this encounter Visit Diagnoses Not on filedocumented in this encounter Care Teams Garbage Collector Supervisor Relationship Specialty Start Date End Date Unallocated, Noms Provider, [address] [place] [address] PCP - General Family Medicine 08/03/24 documented as of this encounter
--- OUTSIDE RECORDS SUMMARY | 2025-06-29 11:06 | XMS_ITS | Encounter Summary ---
Author Organization [facility] Address [address] [place] [address] Care Team Providers Care Mixer Machine Feeder Name Role Phone Unallocated, Noms Provider Primary Care Provi krissy Encounter Details Date Type Department Care Team (Late st Contact Info) Description 06/25/2025 Abstract ARJUN PANG [address] [place] [address] Kavitha Almanza MA Social History Tobacco [...] EDT Routine ARJUN PANG [address] [place] [address] Megan Aranda, VLAD [address] [place] [address] documented as of this encounter Visit Diagnoses Not on filedocumented in this encounter Care Teams Mixer Machine Feeder Relationship Specialty Start Date End Date Unallocated, Noms Provider, [address] [place] [address] PCP - General Family Medicine 08/03/24 documented as of this encounter
--- OUTSIDE RECORDS SUMMARY | 2025-06-29 11:06 | XMS_ITS | Encounter Summary ---
Author Organization [facility] Address [address] [place] [address] Care Team Providers Care Neurology Manager Name Role Phone Unallocated, Noms Provider Primary Care Provi krissy Encounter Details Date Type Department Care Team (Late st Contact Info) Description 06/15/2025 Clinisync Result Encounter [facility] External Department Unsolicited Collin Leach PA [address] [facility] [address] [place], [facility]11 Social History Tobacco Use Types [...] AM EDT Routine [facility] [address] [facility] [place] [address] Megan Aranda, RN [employer] [address] [facility] [address] [place] [address] documented as of this encounter Procedures Procedure Name Priority Date/Time Associated Diagnosis Comments US OB BPP W NON-STRESS 06/15/2025 12:51 PM EDT documented in this encounter Results * US OB BPP W NON-STRESS (06/15/2025 12:51 PM EDT) Anatomical Region Laterality Modality Other 06/15/2025 12:5 1 PM EDT Narrative 06/15/2025 12:54 PM EDT [address] [address] Ultrasound Report Signed Patient: VIMAL PIZANO MR#: [id number] : 2000 Acct:[id number] Age/Sex: 25 / F ADM Date: 06/15/25 Loc: [facility] [address]: Collin Leach Ordering Physician: Collin Leach Date of Service: 06/15/25 Procedure(s): US OB BPP w non-stress Accession Number(s): [id number] cc: Collin Leach; LUIS SEE [address] [address] Patient Name: VIMAL PIZANO MRN: [id number] date: 2000 Sex: F Assigned Patient Location: Current Patient Location: Accession/Order Number: [id number] Exam Date: 06/15/2025 11:07 Report Date: 06/15/2025 12:51 At the request of: COLLIN LEACH Procedure: US OB BPP w non-stress Biophysical profile. Reason for exam: Gestational diabetes COMPARISON: 06/08/2025 TECHNIQUE: Transabdominal imaging of the gravid uterus was obtained. FINDINGS: The case fitter reports a BPP of 8 out of 8. DANYA is normal at 11.0 cm. heart rate 136 bpm. US/US OB BPP w non-stress IMPRESSION: BPP 8 out of 8. Impression dictated by: Amadou Carias M.D. 06/15/2025 12:51 PM Dictation Location: [facility]-29 Electronically authenticated by: [id number] Y Date: 06/15/2025 12:51 Dictated By: Amadou Carias M.D. Signed By: 06/15/25 1254 DD/ 1251 TD/TT: Financial Services Director: Procedure Note Radiology, Radiologist, - 06/15/2025 [place] [address] Ultrasound Report Signed Patient: VIMAL PIZANO MMR#: [id number] : 2000Acct:[id number] Age/Sex: 25 FADM Date: 06/15/25 Loc: [facility] [address]: Collin Leach Ordering Physician: Collin Leach Date of Service: 06/15/25 Procedure(s): US OB BPP w non-stress Accession Number(s): [id number] cc: Collin Leach; LUIS SEE [place] [address] Patient Name: VIMAL PIZANO MRN: [id number] date: 2000 Sex: F Assigned Patient Location: US Current Patient Location: US Accession/Order Number: [id number] Exam Date: 06/15/2025 11:07 Report Date: 06/15/2025 12:51 At the request of: COLLIN LEACH Procedure: US OB BPP w non-stress Biophysical profile. Reason for exam: Gestational diabetes COMPARISON: 06/08/2025 TECHNIQUE: Transabdominal imaging of the gravid uterus was obtained. FINDINGS: The case fitter reports a BPP of 8 out of 8. DANYA is normal at11.0 cm. heart rate 136 bpm. US/US OB BPP w non-stress IMPRESSION: BPP 8 out of 8. Impression dictated by: Amadou Carias M.D. 06/15/2025 12:51 PM Dictation Location: [facility] Electronically authenticated by: [id number] Y Date: 2:51 Dictated By: Amadou Carias M.D. Signed By:06/15/25 1254 DD/ 1251 TD/TT: Financial Services Director: us Collin BISWAS [facility] Final Result documented in this encounter Visit Diagnoses Not on filedocumented in this encounter Care Teams Neurology Manager Relationship Specialty Start Date End Date Unallocated, Noms Provider, [address] [place] [address] PCP - General Family Medicine 08/03/24 documented as of this encounter
--- OUTSIDE RECORDS SUMMARY | 2025-06-29 11:06 | XMS_ITS | Encounter Summary ---
Author Organization [facility] tem Address [facility] [address] [place] [address] Care Team Providers Care Steam Hand Name Role Phone Unavailable Primary Care Provider Unavailabl e Reason for Referral * Diagnostic Imaging (Routine) - Pending Review Specialty Diagnoses / Procedures Referred By Ashly thomson Referred To Contact Maternal and Medicine Diagnoses Poor growth affecting management of mother in third trimester, single or unspecified fetus Procedures US MFM with or without consult Maria Luisa Patel MD [address] [facility] [address] [address] Phone: tel: fax: Maternal- Medicine at [facility] [address] [place] [address] Phone: tel: fax: Referral ID Status Reason Start Date Expiration Date V isits Requested Visits Authorized [id number] Pending Review 06/20/2025 06/20/2026 1 1 Encounter Details Date Type Department Care Team (Late st Contact Info) Description 06/20/2025 Orders Only Maternal- Medicine at [facility] [address] [place] [address] Marii Yoo RN Poor growth [...] Info) Description 07/02/2025 3:30 PM EDT Appointment [facility] - [facility] US Imaging [address] [place] [address] Scheduled Orders Name Type Priority Associated Diagnoses Orde r Schedule US [facility] with or without consult Imaging Routine Poor growth affecting management of mother in third trimester, single or unspecified fetus Expected: 06/20/2026 (Approximate), Expires: 06/20/2026 documented as of this encounter Visit Diagnoses Diagnosis Poor growth affecting management of mother in third trimester, single or unspecified fetus- Primary documented in this encounter
--- OUTSIDE RECORDS SUMMARY | 2025-06-29 11:06 | XMS_ITS | Encounter Summary ---
Author Organization [facility] Address [address] [place] [address] Care Team Providers Care Special Education Resource Teacher Name Role Phone Unallocated, Noms Provider Primary Care Provi krissy Encounter Details Date Type Department Care Team (Late st Contact Info) Description 03/11/2025 Results Follow-Up ARJUN [place] OBGYN [address] [facility] [address] [place] [address] Glenna Butler LPN [address] [place] [address] US OB ANATOMY Social History [...] AM EDT Routine NOM[facility] [place] OBG[facility] [address] [facility] [place] [address] Megan Aranda, VLAD [address] [facility] [address] [place] [address] documented as of this encounter Visit Diagnoses Not on filedocumented in this encounter Care Teams Special Education Resource Teacher Relationship Specialty Start Date End Date Unallocated, Noms MD Gilda [address] [place] [address] PCP - General Family Medicine 08/03/24 documented as of this encounter
--- OUTSIDE RECORDS SUMMARY | 2025-06-29 11:06 | XMS_ITS | Encounter Summary ---
Author Organization [facility] Address [address] [place] [address] Care Team Providers Care Systems Integration Engineer Name Role Phone Unallocated, Noms Provider Primary Care Provi krissy Encounter Details Date Type Department Care Team (Late st Contact Info) Description 05/07/2025 Results Follow-Up ARJUN [place] OBGYKeegan [address] [facility] [address] [address] Glenna Butler LPN [address] [place] [address] ALL CBC WITH AUTO DIFF, [...] AM EDT Routine ARJUN [place] OBGYN [address] [facility] [place] [address] Megan Arnada, VLAD [address] [facility] [address] [place] [place] [address] documented as of this encounter Visit Diagnoses Not on filedocumented in this encounter Care Teams Systems Integration Engineer Relationship Specialty Start Date End Date Unallocated, Arjun Vo MD [address] [place] [address] PCP - General Family Medicine 08/03/24 documented as of this encounter
--- OUTSIDE RECORDS SUMMARY | 2025-06-29 11:06 | XMS_ITS | Encounter Summary ---
Author Organization [facility] Address [address] [place] [address] Care Team Providers Care Form Raiser Name Role Phone Vaishali Chaidez MD Primary Care Provider Bipin cheng Unallocated, Noms Provider Primary Care Provi krissy Encounter Details Date Type Department Care Team (Late st Contact Info) Description 06/29/2024 Clinisync Result Encounter [facility] External Department Unsolicited Mackenzie Rodriguez DO [address] [place], [facility] [...] Routine [facility] [address] [place] [address] Megan Aranda, MIXED LIVESTOCK FARMER [address] [place] [address] documented as of this encounter Procedures Procedure Name Priority Date/Time Associated Diagnosis Comments US OB TRANSVAGINAL 06/29/2024 9: 11 AM EDT documented in this encounter Results * US OB TRANSVAGINAL (06/29/2024 9:11 AM EDT) Anatomical Region Laterality Modality Other 06/29/2024 9:11 AM EDT Narrative 06/29/2024 9:14 [place] [address] Ultrasound Report Signed Patient: Vimal Pizano MR#: [id number] : 2000 Acct:[id number] Age/Sex: 24 / F ADM Date: 06/29/24 Loc: [facility] Attending Dr: Mackenzie Rodriguez D.O. Ordering Physician: Mackenzie Rodriguez D.O. Date of Service: 06/29/24 Procedure(s): US OB transvaginal Accession Number(s): [id number] cc: Mackenzie Rodriguez D.O.; VAISHALI CHAIDEZ [place] [id number] Patient Name: VIMAL PIZANO MRN: [id number] date: 2000 Sex: F Assigned Patient Location: [facility] Current Patient Location: [facility] Accession/Order Number: [id number] Exam Date: 06/29/2024 08:37 Report Date: 06/29/2024 [...] M.D. Signed By: 06/29/24913 DD/ 0 TD/TT: Senior Net Developer: Procedure Note Radiology, Radiologist, MD - 06/29/2024 [place] [address] Ultrasound Report Signed Patient: Vimal Pizano MMR#: [id number] : 2000Acct:[id number] Age/Sex: 24 / FADM Date: 06/29/24 Loc: [facility] Attending Dr: Mackenzie Rodriguez D.O. Ordering Physician: Mackenzie Rodriguez D.O. Date of Service: 06/29/24 Procedure(s): US OB transvaginal Accession Number(s): [id number] cc: Mackenzie Rodriguez D.O.; VAISHALI CHAIDEZ [place] [phone] Patient Name: VIMAL PIZANO MRN: [id number] date: 2000 Sex: F Assigned Patient Location: [facility] Current Patient Location: [facility] Accession/Order Number: [id number] Exam Date: 06/29/2024 08:37 Report Date: 06/29/2024 [...] Herrera M.D. Signed By:06/29/24913 DD/ 0 TD/TT: Senior Net Developer: us Mackenzie Michael DO [facility] Final Result documented in this encounter Visit Diagnoses Not on filedocumented in this encounter Care Teams Form Raiser Relationship Specialty Start Date End Date Vaishali Chaidez MD [address] [place] [address] PCP - General Family Medicine 02/04/23 08/02/24 Unallocated, Noms Provider, [address] [facility] [place] [address] PCP - General Family Medicine 08/03/24 documented as of this encounter
--- OUTSIDE RECORDS SUMMARY | 2025-06-29 11:06 | XMS_ITS | Encounter Summary ---
Author Organization [facility] Address [address] [place] [address] Care Team Providers Care Greenhouse Grower Name Role Phone Unallocated, Noms Provider Primary Care Provi krissy Encounter Details Date Type Department Care Team (Late Contact Info) Description 06/26/2025 Bamboo flowsheet NOMMay PANG [address] [place] [address] Megan Aranda, VLAD [address] [facility] [address] [place] [place] [address] Social History Tobacco Use Types Packs/Day [...] AM EDT Routine [facility]ia PANG [address] [place] [address] Megan Aranda, VLAD [address] [place] [address] documented as of this encounter Visit Diagnoses Not on filedocumented in this encounter Care Teams Greenhouse Grower Relationship Specialty Start Date End Date Unallocated, Noms Provider, [place] [address] PCP - General Family Medicine 08/03/24 documented as of this encounter
--- OUTSIDE RECORDS SUMMARY | 2025-06-29 11:06 | XMS_ITS | Patient Health Record ---
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 Name Role Phone BenjamínJennifer costa Primary Care Provider [phone] Allergies No Known Allergies Results Component Value Reference Range Notes RUBELLA AB IGG Reviewed date:07/23/2024 08:22:00 AM Interpretation: Performing Lab: Notes/Report: [facility] , Rubella Antibodies, IgG 1.57 Immune >0.99 inde x Non-immune <0.90 Equivocal 0.90 - 0.99 Immune >0.99 Performed at: [employer] [id number] Contract Consultant: Andrew Harris PhD, Phone: [phone] Performing Lab: see note LC - [facility] LB Type and Screen Reviewed date:07/23/2024 08:22:00 AM Interpretation: Performing Lab: Notes/Report: [facility] , Blood Type A Positive Antibody Screen NEGATIVE HIV Ab/p24 Ag with Reflex Reviewed date:07/23/2024 08:22:00 AM Interpretation: Performing Lab: Notes/Report: [facility] , HIV Ab/p24 Ag Screen Non Reactive Non Reactive HIV-1/HIV-2 antibodies and HIV-1 p24 antigen were NOT detected. There is no laboratory evidence of HIV infection. HIV Negative Performed at: [employer] [id number] Contract Consultant: Andrew Harris PhD, Phone: [phone] Performing Lab: see note LC - [facility] [...] utilized, such as Treponema pallidum (Syphilis) Screening Gates (338350) or Rapid Plasma Reagin (RPR) Test With Reflex to Quantitative RPR and Confirmatory Treponema pallidum Antibodies (147323). Performed at: [address] [id number] Contract Consultant: Andrew Harris PhD, Phone: [phone] Performing Lab: see note - [facility] LB [...] , HBsAg Screen Negative Negative Performed at: [address] [id number] Contract Consultant: Andrew Harris PhD, Phone: [phone] Performing Lab: see note - [facility] LB IGP,Aptima HPV,Age Gdln Reviewed date:02/25/2025 03:13:18 PM Interpretation: Performing Lab: Notes/Report: SPATULA-ALONE ENDOCERVIX [facility] , Age Gdln ACOG Testing Note . TESTS RESULT FLAG UNITS REF RANGE LAB Clinician Provided Cytology Information Source.............Endo cervix No. of containers..01 ThinPrep Vial Age Ramirez MORALES Yris... FLAG LEGEND: L-Low Normal,H-High Normal,LL-Alert Low,HH-Alert High <-Panic Low,>-Panic High,A-Abnormal,AA-Crit ical Abnormal Performed at: 01 =G [facility] [address] Jenise Byrne MD, IGP, rfx Aptima HPV ASCU Note . TESTS RESULT FLAG UNITS REF RANGE LAB DIAGNOSIS: 02 NEGATIVE FOR INTRAEPITHELIAL LESION OR MALIGNANCY. Specimen adequacy: 02 Satisfactory for evaluation. Endocervical and/or squamous metaplastic cells (endocervical component) are present. Performed by: Hussein Alvarez, Toll Operator (ASCP) . 02 Note: Note 02 The [...] Low,>-Panic High,A-Abnormal,AA-Crit ical Abnormal Performed at: [address] [address] Jenise Byrne MD, Performed at: =G - [facility] [address] [id number] Contract Consultant: Jenise Byrne MD, Phone: [phone] Performed at: [facility] [id number] Contract Consultant: Jenise Byrne MD, Phone: [phone] Performing Lab: see note - [facility] Reviewed date:05/06/2025 10:03:33 AM Interpretation: Performing Lab: Notes/Report: [facility] , Blood Urea Nitrogen 8.0 7.0-18.0 mg/dL Performing Lab: see note ML - [facility] CREATININE Reviewed date:05/06/2025 10:03:33 AM Interpretation: Performing Lab: Notes/Report: [facility] , Creatinine 0.37 0.55-1.02 mg/dL Estimated GFR ( Ashley >60 >=60 mL/min/1.73m 2 Estimated GFR (Non- Hortencia >60 >=60 mL/min/1.73m 2 Performing Lab: see note ML - [facility] LDH Reviewed date:05/06/2025 10:03:33 AM Interpretation: Performing Lab: Notes/Report: [facility] , Lactate Dehydrogenase 163 81-234 U/L Performing Lab: see note ML - [facility] LB SGOT Reviewed date:05/06/2025 10:03:33 AM Interpretation: Performing Lab: Notes/Report: [facility] , Aspartate Amino Transferase 23 15-37 U/L Performing Lab: see note ML - [facility] LB URIC ACID SERUM Reviewed date:05/06/2025 10:03:33 AM Interpretation: Performing Lab: Notes/Report: [facility] , Uric Acid 3.7 2.6-6.0 mg/dL Performing Lab: see note ML - [facility] LB Glucose Tolerance 3 Hour Reviewed date:05/06/2025 10:03:33 AM Interpretation: Performing Lab: Notes/Report: [facility] , Glucose Tolerance 3 Hour GLU FAST 108H (<95) Col: 05/04/25 0723 GLU 1HR 234H (<180) Col: 05/04/25 0826 GLU 2HR 186H (<155) Col: 05/04/25 0927 GLU 3HR 133 (<140) Col: 05/04/25 1028 Performing Lab: see note ML - [facility] LB CBC AUTO DIFF Reviewed date:05/20/2025 11:23:08 AM Interpretation: Performing Lab: Notes/Report: [facility] , White Blood Count 15.0 4.0-11.0 [...] Performing Lab: see note ML - [facility] LB CREATININE Reviewed date:05/20/2025 11:23:08 AM Interpretation: Performing Lab: Notes/Report: [facility] , Creatinine 0.38 0.55-1.02 mg/dL Estimated GFR ( Ashley >60 >=60 mL/min/1.73m 2 Estimated GFR (Non- Hortencia >60 >=60 mL/min/1.73m 2 Performing Lab: see note ML - [facility] LB LDH Reviewed date:05/20/2025 11:23:08 AM Interpretation: Performing Lab: Notes/Report: [facility] , Lactate Dehydrogenase 147 81-234 U/L Performing Lab: see note ML - [facility] LB PTT Reviewed date:05/20/2025 11:23:08 AM Interpretation: Performing Lab: Notes/Report: [facility] , Partial Thromboplastin Time 25.6 22.3-36.2 sec Performing Lab: see note ML - [facility] LB SGOT Reviewed date:05/20/2025 11:23:08 AM Interpretation: Performing Lab: Notes/Report: [facility] , Aspartate Amino Transferase 18 15-37 U/L Performing Lab: see note ML - [facility] LB URIC ACID SERUM Reviewed date:05/20/2025 11:23:08 AM Interpretation: Performing Lab: Notes/Report: [facility] , Uric Acid 4.0 2.6-6.0 mg/dL Performing Lab: see note ML - [facility] LB Prothrombin Time INR Reviewed date:05/20/2025 11:23:08 AM Interpretation: Performing Lab: Notes/Report: [facility] , Prothrombin Time 10.2 9.0-11.6 sec INR 0.96 DESIRED INR: 2.0-3.0 CONDITIONS NOT LISTED BELOW 2.5-3.5 FOR PROSTHETIC HEART VALVE REPLACEMENT 2.5-3.5 RECURRENT THROMBOSIS Performing Lab: see note ML - [facility] US OB BPP w non-stress Reviewed date:06/10/2025 10:40:51 AM Interpretation: Performing Lab: Notes/Report: Source Facility: [place] [address] [place] [address] Ultrasound Report Signed Patient: VIMAL FUNES MR#: [id number] : 2000 Acct:[id number] Age/Sex: 25 / F ADM Date: 06/08/25 Loc: US Attending Dr: Rossana Leach Ordering Physician: Rossana Leach Date of Service: 06/08/25 Procedure(s): US OB BPP w non-stress Accession Number(s): [id number] cc: Rossana Leach; JENNIFER SEE [place] [address] Patient Name: VIMAL FUNES MRN: [id number] date: 2000 Sex: F [facility] Patient Location: Accession/Order Number: [id number] Exam Date: 06/08/2025 11:01 Report Date: 06/08/2025 [...] Knapp M.D. 06/08/2025 12:10 PM Dictation Location: [facility] Electronically authenticated by: [id number] Y Date: 06/08/2025 12:10 Dictated By: Shivam Knapp D.O. Signed By: 06/08/25 1213 DD/ 1210 TD/TT: Ceramic Saw Tender: US OB BPP w non-stress Reviewed date:06/24/2025 03:35:28 PM Interpretation: Performing Lab: Notes/Report: Source Facility: [place] [address] Ultrasound Report Signed Patient: VIMAL FUNES MR#: [id number] : 2000 Acct:[id number] Age/Sex: 25 / F ADM Date: 06/22/25 Loc: US Attending Dr: Rossana Leach Ordering Physician: Rossana Leach Date of Service: 06/22/25 Procedure(s): US OB BPP w non-stress Accession Number(s): [id number] cc: Rossana Leach; JENNIFER SEE [place] [address] Patient Name: VIMAL FUNES MRN: [id number] date: 2000 Sex: F [facility] Current Patient Location: Accession/Order Number: [id number] Exam Date: 06/22/2025 10:52 Report Date: 06/22/2025 [...] Acharya M.D. 06/22/2025 7:28 PM Dictation Location: [place] [address] Electronically authenticated by: [id number] Y Date: 06/22/2025 19:28 Dictated By: Heriberto Acharya M.D. Signed By: 06/22/251930 DD/ 27 TD/TT: Ceramic Saw Tender: US OB BPP w non-stress Reviewed date:05/28/2025 11:03:16 AM Interpretation: Performing Lab: Notes/Report: Source Facility: [facility] [place] [address] Ultrasound Report Signed Patient: VIMAL FUNES MR#: [id number] : 2000 Acct:[id number] Age/Sex: 25 / F ADM Date: 05/25/25 Loc: US Attending Dr: Rossana Leach Ordering Physician: Rossana Leach Date of Service: 05/25/25 Procedure(s): US OB BPP w non-stress Accession Number(s): [id number] cc: Rossana Leach; JENNIFER SEE [place] [address] Patient Name: VIMAL FUNES MRN: [id number] date: 2000 Sex: F [facility] Current Patient Location: Accession/Order Number: [id number] Exam Date: 05/25/2025 08:21 Report Date: 05/25/2025 [...] Acharya M.D. 05/25/2025 11:13 AM Dictation Location: [place] [address] Electronically authenticated by: [id number] Y Date: 05/25/2025 11:13 Dictated By: Heriberto Acharya M.D. Signed By: 05/25/25 1116 DD/ 1113 TD/TT: Ceramic Saw Tender: Total Protein 24 Hour Urine Reviewed date:05/21/2025 08:48:02 AM Interpretation: Performing Lab: Notes/Report: [facility] , Total Protein Urine Random 6.7 <=11.9 mg/dL Total Volume 24 Hour Urine 2900 Total Protein 24 Hour Urine 194.3 <=149.1 mg/24hr Performing Lab: see note ML - [facility] LB US OB BPP w non-stress Reviewed date:05/20/2025 11:23:08 AM Interpretation: Performing Lab: Notes/Report: Source Facility: [place] [address] Ultrasound Report Signed Patient: VIMAL FUNES MR#: [id number] : 2000 Acct:[id number] Age/Sex: 25 / F ADM Date: 05/18/25 Loc: US Attending Dr: Rossana Leach Ordering Physician: Rossana Leach Date of Service: 05/18/25 Procedure(s): US OB BPP w non-stress Accession Number(s): [id number] cc: Rossana Leach; JENNIFER SEE [place] [id number] Patient Name: VIMAL FUNES MRN: [id number] date: 2000 Sex: F [facility] Current Patient Location: Accession/Order Number: [id number] Exam Date: 05/18/2025 11:16 Report Date: 05/18/2025 [...] Acharya M.D. 05/18/2025 5:08 PM Dictation Location: [employer] Electronically authenticated by: [id number] Y Date: 05/18/2025 17:08 Dictated By: Heriberto Acharya M.D. Signed By: 05/18/252016 DD/ 07 TD/TT: Ceramic Saw Tender: [place] Reviewed date:05/20/2025 11:23:08 AM Interpretation: Performing Lab: Notes/Report: [facility] , Blood Urea Nitrogen 9.0 7.0-18.0 mg/dL Performing Lab: see note ML - [facility] LB Total Protein 24 Hour Urine Reviewed date:05/07/2025 09:01:34 AM Interpretation: Performing Lab: Notes/Report: [facility] , Total Protein Urine Random <6.0 <=11.9 mg/dL Total Volume 24 Hour Urine 3700 Performing Lab: see note - [facility] LB US OB growth Reviewed date:05/06/2025 10:03:33 AM Interpretation: Performing Lab: Notes/Report: Source Facility: [facility] [place] [address] [place] [address] Ultrasound Report Signed Patient: VIMAL FUNES MR#: [id number] : 2000 Acct:[id number] Age/Sex: 25 / F ADM Date: 05/04/25 [facility]: Rossana Leach Ordering Physician: Rossana Leach Date of Service: 05/04/25 Procedure(s): US OB growth Accession Number(s): [id number] cc: Rossana Leach; JENNIFER SEE [place] [address] Patient Name: VIMAL FUNES MRN: [id number] date: 2000 Sex: F [facility] Accession/Order Number: [id number] Exam Date: 05/04/2025 12:06 Report Date: 05/04/2025 [...] Jr., D.O. 05/04/2025 12:08 PM Dictation Location: [employer] Electronically authenticated by: [id number] Y Date: 05/04/2025 12:08 Dictated By: Bulmaro Arias M.D. Signed By: 05/04/25 1211 DD/ 1208 TD/TT: Ceramic Saw Tender: US OB BPP w non-stress Reviewed date:05/06/2025 10:03:33 AM Interpretation: Performing Lab: Notes/Report: Source Facility: [place] [address] Ultrasound Report Signed Patient: VIMAL FUNES MR#: [id number] : 2000 Acct:[id number] Age/Sex: 25 / F ADM Date: 05/04/25 [facility]: Rossana Leach Ordering Physician: Rossana Leach Date of Service: 05/04/25 Procedure(s): US OB BPP w non-stress Accession Number(s): [id number] cc: Rossana Leach; JENNIFER SEE [facility] [address] [place], [place] [address] Patient Name: VIMAL FUNES MRN: [id number] date: 2000 Sex: F [facility] Accession/Order Number: [id number] Exam Date: 05/04/2025 12:08 Report Date: 05/04/2025 12:09 At the request of: ROSSANA LEACH Procedure: US OB BPP w non-stress Biophysical profile. Reason for exam: Gestational diabetes COMPARISON: None TECHNIQUE: Transabdominal imaging of the gravid uterus was obtained. FINDINGS: The early childhood aide classroom reports a BPP of 8 out of 8. DANYA is normal at 12.4 cm. heart rate 150 bpm. US/US OB BPP w non-stress IMPRESSION: BPP 8 out of 8. Impression dictated by: Bulmaro Arias Jr., D.O. 05/04/2025 12:09 PM Dictation Location: [employer] Electronically authenticated by: [id number] Y Date: 05/04/2025 12:09 Dictated By: Bulmaro Arias M.D. Signed By: 05/04/25 1212 DD/ 1209 TD/TT: Ceramic Saw Tender: Prothrombin Time INR Reviewed date:05/06/2025 10:03:33 AM Interpretation: Performing Lab: Notes/Report: [facility] , Prothrombin Time 10.1 9.0-11.6 sec INR 0.95 DESIRED INR: 2.0-3.0 CONDITIONS NOT LISTED BELOW 2.5-3.5 FOR PROSTHETIC HEART VALVE REPLACEMENT 2.5-3.5 RECURRENT THROMBOSIS Performing Lab: see note ML - [facility] LB PTT Reviewed date:05/06/2025 10:03:33 AM Interpretation: Performing Lab: Notes/Report: [facility] , Partial Thromboplastin Time 25.7 22.3-36.2 sec Performing Lab: see note ML - [facility] LB CBC AUTO DIFF Reviewed date:05/06/2025 10:03:33 AM Interpretation: Performing Lab: Notes/Report: [facility] , White Blood Count 12.5 4.0-11.0 [...] 3/uL Performing Lab: see note ML - [facility] LB Glucose 1 Hour Reviewed date:04/29/2025 09:37:12 AM Interpretation: Performing Lab: Notes/Report: [facility] , Glucose 1 Hour 171 <130 mg/dL Performing Lab: see note - [facility] LB CBC AUTO DIFF Reviewed date:04/29/2025 09:37:12 AM Interpretation: Performing Lab: Notes/Report: [facility] , White Blood Count 12.5 4.0-11.0 [...] see note ML - [facility] US OB incomplete anatomy Reviewed date:03/25/2025 09:01:39 AM Interpretation: Performing Lab: Notes/Report: Source Facility: [facility] [place] [address] [place] [address] Ultrasound Report Signed Patient: VIMAL FUNES MR#: [id number] : 2000 Acct:[id number] Age/Sex: 24 / F ADM Date: 03/23/25 Loc: US Attending Dr: Mackenzie Rodriguez D.O. Ordering Physician: Mackenzie Rodriguez D.O. Date of Service: 03/23/25 Procedure(s): US OB incomplete anatomy Accession Number(s): [id number] cc: JENNIFER SEE ; Mackenzie Rodriguez D.O. [place] [address] Patient Name: VIMAL FUNES MRN: [id number] date: 2000 Sex: F Assigned Patient Location: US Current Patient Location: US Accession/Order Number: [id number] Exam Date: 03/25/2025 08:23 Report Date: 03/25/2025 [...] Brown M.D. 03/25/2025 8:25 AM Dictation Location: [place] [address] Electronically authenticated by: [id number] Y Date: 03/25/2025 08:25 Dictated By: Meghana Brown M.D. Signed By: 03/25/25826 DD/ 4 TD/TT: Ceramic Saw Tender: US OB anatomy Reviewed date:03/14/2025 10:39:54 AM Interpretation: Performing Lab: Notes/Report: Source Facility: [place] [address] Ultrasound Report Signed Patient: VIMAL FUNES MR#: [id number] : 2000 Acct:[id number] Age/Sex: 24 / F ADM Date: 03/08/25 Loc: US Attending Dr: Mackenzie Rodriguez D.O. Ordering Physician: Mackenzie Rodriguez D.O. Date of Service: 03/08/25 Procedure(s): US OB anatomy Accession Number(s): [id number] cc: JENNIFER SEE ; Mackenzie Rodriguez D.O. [place] [address] Patient Name: VIMAL FUNES MRN: [id number] date: 2000 Sex: F Assigned Patient Location: Current Patient Location: Accession/Order Number: [id number] Exam Date: 03/08/2025 20:31 Report Date: 03/08/2025 [...] Knapp M.D. 03/08/2025 8:36 PM Dictation Location[facility] Electron[facility] authenticated by: [id number] Y Date: 03/08/2025 20:36 Dictated By: Shivam Knapp D.O. Signed By: 03/08/252037 DD/ 35 TD/TT: Ceramic Saw Tender: US OB cervical length Reviewed date:03/14/2025 10:39:54 AM Interpretation: Performing Lab: Notes/Report: Source Facility: [facility] [place] [address] [place] [address] Ultrasound Report Signed Patient: VIMAL FUNES MR#: [id number] : 2000 Acct:[id number] Age/Sex: 24 / F ADM Date: 03/08/25 Loc: US Attending Dr: Mackenzie Rodriguez D.O. Ordering Physician: Mackenzie Rodriguez D.O. Date of Service: 03/08/25 Procedure(s): US OB cervical length Accession Number(s): [id number] cc: JENNIFER SEE ; Mackenzie Rodriguez D.O. [place] [address] Patient Name: VIMAL FUNES MRN: [id number] date: 2000 Sex: F Assigned Patient Location: US Current Patient Location: US Accession/Order Number: [id number] Exam Date: 03/08/2025 20:31 Report Date: 03/08/2025 [...] Knapp M.D. 03/08/2025 8:36 PM Dictation Location: [employer] Electronically authenticated by: [id number] Y Date: 03/08/2025 20:36 Dictated By: Shivam Knapp D.O. Signed By: 03/08/252037 DD/ 35 TD/TT: Ceramic Saw Tender: Box Test Reviewed date:01/07/2025 01:05:16 PM Interpretation: Performing Lab: Notes/Report: [facility] , BOX Test Sent Out [place] B[facility] Test Reference Lab [place] [facility] Test Date Sent 01-05-25 Performing Lab: see note [facility] LB Urine Culture, Routine Reviewed date:01/07/2025 01:05:16 PM Interpretation: Performing Lab: Notes/Report: [facility] , Urine Culture, Routine See Below For Report Urine Culture, Routine Urine Culture, Routine Mixed urogenital tami Urine Culture, Routine Urine Culture, Routine 50,000-100,000 colony forming units per mL Urine Culture, Routine Urine Culture, Routine Performed at: [facility] Urine Culture, Routine Urine Culture, Routine [address] [place] [id number] Urine Culture, Routine Urine Culture, Routine Contract Consultant: Andrew Harris PhD, Phone: [phone] Urine Culture, Routine Performing Lab: see note LC - [facility] LB SEE REPORT - Access Services Representative Id information not found for OBX-specific board machine set up operator legend HBsAg Screen Reviewed date:01/07/2025 01:05:16 PM Interpretation: Performing Lab: Notes/Report: [facility] , HBsAg Screen Negative Negative Performed at: [address] [id number] Contract Consultant: Andrew Harris PhD, Phone: [phone] Performing Lab: see note [facility] LB HCV Antibody RFX to Quant PC R Reviewed date:01/07/2025 01:05:16 PM Interpretation: Performing Lab: Notes/Report: [facility] , HCV Ab Non Reactive Non Reactive Interpretation: Comment . Not infected with HCV unless early or acute infection is suspected (which may be delayed in an immunocompromised individual), or other evidence exists to indicate HCV infection. Performed at: [address] [id number] Contract Consultant: Andrew Harris PhD, Phone: [phone] Performing Lab: see note [facility] Rapid Plasma Reagin, Quant Reviewed [...] utilized, such as Treponema pallidum (Syphilis) Screening Gates (362113) or Rapid Plasma Reagin (RPR) Test With Reflex to Quantitative RPR and Confirmatory Treponema pallidum Antibodies (589962). Performed at: [address] [id number] Contract Consultant: Andrew Harris PhD, Phone: [phone] Performing Lab: see note [facility] LB HIV Ab/p24 Ag with Reflex Reviewed date:01/07/2025 01:05:16 PM Interpretation: Performing Lab: Notes/Report: [facility] , HIV Ab/p24 Ag Screen Non Reactive Non Reactive HIV-1/HIV-2 antibodies and HIV-1 p24 antigen were NOT detected. There is no laboratory evidence of HIV infection. HIV Negative Performed at: [address] [id number] Contract Consultant: Andrew Harris PhD, Phone: [phone] Performing Lab: see note [facility] LB Type and Screen Reviewed date:01/07/2025 01:05:16 PM Interpretation: Performing Lab: Notes/Report: [facility] , Blood Type A Positive Antibody Screen NEGATIVE RUBELLA AB IGG Reviewed date:01/07/2025 01:05:16 PM Interpretation: Performing Lab: Notes/Report: [facility] , Rubella Antibodies, IgG 1.57 Immune >0.99 inde x Non-immune <0.90 Equivocal 0.90 - 0.99 Immune >0.99 Performed at: [address] [id number] Contract Consultant: Andrew Harris PhD, Phone: [phone] Performing Lab: see note [facility] LB GLYCOHEMOGLOBIN A1C Reviewed date:01/07/2025 01:05:16 PM Interpretation: Performing Lab: Notes/Report: [facility] , Glycohemoglobin A1C 5.0 4.5-6.2 % ADA RECOMMENDED LIMIT 4.0 - 6.0 ADA THERAPEUTIC TARGET < 7.0 ACTION SUGGESTED > 7.0 Estimated Average Glucose 97 Performing Lab: see note ML - [facility] LB DRUG SCREEN RAPID (URINE) Reviewed date:01/07/2025 01:05:16 PM Interpretation: Performing Lab: Notes/Report: [facility] , Cannabinoid Screen Urine NEGATIVE NEGATIVE [...] Performing Lab: see note ML - [facility] LB CBC AUTO DIFF Reviewed date:01/07/2025 01:05:16 PM Interpretation: Performing Lab: Notes/Report: [facility] , White Blood Count 9.2 4.0-11.0 [...] 3/uL Performing Lab: see note ML - [facility] PREG QUANT HCG Reviewed date:11/22/2024 08:59:16 AM Interpretation: Performing Lab: Notes/Report: [facility] Quantitative 52716 5-50 0.2-1 WEEK 50-500 1-2 WEEKS 100-5,000 2-3 WEEKS 500-10,000 3-4 WEEKS 1,000-50,000 4-5 WEEKS 10,000-100,000 5-6 WEEKS 15,000-200,000 6-8 WEEKS 10,000-100,000 2-3 MONTHS Performing Lab: see note ML - [facility] PREG QUANT HCG Reviewed date:11/20/2024 01:38:35 PM Interpretation: Performing Lab: Notes/Report: [facility] Quantitative 6254 5-50 0.2-1 WEEK 50-500 1-2 WEEKS 100-5,000 2-3 WEEKS 500-10,000 3-4 WEEKS 1,000-50,000 4-5 WEEKS 10,000-100,000 5-6 WEEKS 15,000-200,000 6-8 WEEKS 10,000-100,000 2-3 MONTHS Performing Lab: see note ML - [facility] PREG QUANT HCG Reviewed date:08/20/2024 11:36:34 AM Interpretation: Performing Lab: Notes/Report: [facility] , HCG Quantitative 6 5-50 0.2-1 WEEK 50-500 1-2 WEEKS 100-5,000 2-3 WEEKS 500-10,000 3-4 WEEKS 1,000-50,000 4-5 WEEKS 10,000-100,000 5-6 WEEKS 15,000-200,000 6-8 WEEKS 10,000-100,000 2-3 MONTHS Performing Lab: see note ML - [facility] US OB transvaginal Reviewed date:08/10/2024 08:58:56 AM Interpretation: Performing Lab: Notes/Report: Source Facility: [facility] [place] [address] Ultrasound Report Signed Patient: VIMAL FUNES MR#: [id number] : 2000 Acct:[id number] Age/Sex: 24 / F ADM Date: 08/10/24 Loc: SURGOUT Attending Dr: Mackenzie Rodriguez D.O. Ordering Physician: Mackenzie Rodriguez D.O. Date of Service: 08/10/24 Procedure(s): US OB transvaginal Accession Number(s): [id number] cc: JENNIFER SEE ; Mackenzie Rodriguez D.O. [place] [address] Patient Name: VIMAL FUNES MRN: [id number] date: 2000 Sex: F Assigned Patient Location: [facility] Current Patient Location: [facility] Accession/Order Number: [id number] Exam Date: 08/10/2024 08:10 Report Date: 08/10/2024 [...] Herrera M.D. Signed By: 08/10/2447 DD/ TD/TT: Ceramic Saw Tender: PREG QUANT HCG Reviewed date:08/10/2024 08:58:56 AM Interpretation: Performing Lab: Notes/Report: [facility] , HCG Quantitative 240 5-50 0.2-1 WEEK 50-500 1-2 WEEKS 100-5,000 2-3 WEEKS 500-10,000 3-4 WEEKS 1,000-50,000 4-5 WEEKS 10,000-100,000 5-6 WEEKS 15,000-200,000 6-8 WEEKS 10,000-100,000 2-3 MONTHS Performing Lab: see note ML - [facility] LB CBC AUTO DIFF Reviewed date:08/10/2024 08:58:56 AM Interpretation: Performing Lab: Notes/Report: [facility] , White Blood Count 8.9 4.0-11.0 [...] 3/uL Performing Lab: see note ML - [facility] US OB transvaginal Reviewed date:08/03/2024 08:30:13 AM Interpretation: Performing Lab: Notes/Report: Source Facility: [place] [address] Ultrasound Report Signed Patient: VIMAL FUNES MR#: [id number] : 2000 Acct:[id number] Age/Sex: 24 / F ADM Date: 08/02/24 Loc: ER Attending Dr: Ordering Physician: Kishan oCsby Date of Service: 08/02/24 Procedure(s): US OB transvaginal Accession Number(s): [id number] cc: JENNIFER SEE ; Kishan Cosby [place] [address] Patient Name: VIMAL FUNES MRN: [id number] date: 2000 Sex: F Assigned Patient Location: ER Current Patient Location: ER Accession/Order Number: [id number] Exam Date: 08/02/2024 19:17 Report Date: 08/02/2024 [...] M.D. Signed By: 08/02/242126 DD/ 23 TD/TT: Ceramic Saw Tender: PROF Oreilly(COMP METB) Reviewed date:08/03/2024 08:30:13 AM Interpretation: Performing Lab: Notes/Report: [facility] , Sodium 140 136-145 mmol/L Potassium 3.4 [...] Lab: see note ML - [facility] LB PREG QUANT HCG Reviewed date:08/03/2024 08:30:13 AM Interpretation: Performing Lab: Notes/Report: [facility] , HCG Quantitative 1656 5-50 0.2-1 WEEK 50-500 1-2 WEEKS 100-5,000 2-3 WEEKS 500-10,000 3-4 WEEKS 1,000-50,000 4-5 WEEKS 10,000-100,000 5-6 WEEKS 15,000-200,000 6-8 WEEKS 10,000-100,000 2-3 MONTHS Performing Lab: see note ML - [facility] LB CBC AUTO DIFF Reviewed date:08/03/2024 08:30:13 AM Interpretation: Performing Lab: Notes/Report: [facility] , White Blood Count 11.1 4.0-11.0 [...] Performing Lab: see note ML - [facility] LB Box Test Reviewed date:07/23/2024 08:22:00 AM Interpretation: Performing Lab: Notes/Report: [facility] , BOX Test Sent Out Metooo BOX Test Reference Lab RON BOX Test Date Sent 07/21/24 Performing Lab: see note ML - [facility] LB Urine Culture, Routine Reviewed date:07/23/2024 08:22:00 AM Interpretation: Performing Lab: Notes/Report: [facility] , Urine Culture, Routine See Below For Report Urine Culture, Routine Urine Culture, Routine Mixed urogenital tami Urine Culture, Routine Urine Culture, Routine 10,000-25,000 colony forming units per mL Urine Culture, Routine Urine Culture, Routine [facility]formed [facility] Urine Culture, Routine Urine Culture, Routine [address] [place], [place] [id number] Urine Culture, Routine Urine Culture, Routine Contract Consultant: nAdrew Harris PhD, Phone: [phone] Urine Culture, Routine Performing Lab: see note - [facility] LB SEE REPORT - Access Services Representative Id information not found for OBX-specific board machine set up operator legend GLYCOHEMOGLOBIN A1C Reviewed date:07/23/2024 08:22:00 AM Interpretation: Performing Lab: Notes/Report: [facility] , Glycohemoglobin A1C 4.9 4.5-6.2 % ADA RECOMMENDED LIMIT 4.0 - 6.0 ADA THERAPEUTIC TARGET < 7.0 ACTION SUGGESTED > 7.0 Estimated Average Glucose 94 Performing Lab: see note ML - [facility] LB DRUG SCREEN RAPID (URINE) Reviewed date:07/23/2024 08:22:00 AM Interpretation: Performing Lab: Notes/Report: REEFLEX IF POSITIVE [facility] , Cannabinoid Screen Urine NEGATIVE NEGATIVE [...] ng/mL Performing Lab: see note ML - [facility] LB CBC AUTO DIFF Reviewed date:07/23/2024 08:22:00 AM Interpretation: Performing Lab: Notes/Report: [facility] , White Blood Count 10.6 4.0-11.0 [...] 3/uL Performing Lab: see note ML - [facility] US OB BPP w non-stress Reviewed date:06/17/2025 11:37:19 AM Interpretation: Performing Lab: Notes/Report: Source Facility: [facility] [place] [address] [place] [address] Ultrasound Report Signed Patient: VIMAL FUNES MR#: [id number] : 2000 Acct:[id number] Age/Sex: 25 / F ADM Date: 06/15/25 [facility]: Rossana Leach Ordering Physician: Rossana Leach Date of Service: 06/15/25 Procedure(s): US OB BPP w non-stress Accession Number(s): [id number] cc: Rossana Leach; JENNIFER SEE [place] [address] Patient Name: VIMAL FUNES MRN: [id number] date: 2000 Sex: F Assigned Patient Location: Current Patient Location: Accession/Order Number: [id number] Exam Date: 06/15/2025 11:07 Report Date: 06/15/2025 12:51 At the request of: ROSSANA LEACH Procedure: US OB BPP w non-stress Biophysical profile. Reason for exam: Gestational diabetes COMPARISON: 06/08/2025 TECHNIQUE: Transabdominal imaging of the gravid uterus was obtained. FINDINGS: The early childhood aide classroom reports a BPP of 8 out of 8. DANYA is normal at 11.0 cm. heart rate 136 bpm. US/US OB BPP w non-stress IMPRESSION: BPP 8 out of 8. Impression dictated by: Amadou Carias M.D. 06/15/2025 12:51 PM Dictation Location: [place] [address] Electronically authenticated by: [id number] Y Date: 06/15/2025 12:51 Dictated By: Amadou Carias M.D. Signed By: 06/15/25 1254 DD/ 1251 TD/TT: Ceramic Saw Tender: US OB BPP w non-stress Reviewed date:06/03/2025 09:38:37 AM Interpretation: Performing Lab: Notes/Report: Source Facility: [place] [address] [place] [address] Ultrasound Report Signed Patient: VIMAL FUNES MR#: [id number] : 2000 Acct:[id number] Age/Sex: 25 / F ADM Date: 06/01/25 Loc: US Attending Dr: Rossana Leach Ordering Physician: Rossana Leach Date of Service: 06/01/25 Procedure(s): US OB BPP w non-stress Accession Number(s): [id number] cc: Rossana Leach; JENNIFER SEE [place] [id number] Patient Name: VIMAL FUNES MRN: [id number] date: 2000 Sex: F Assigned Patient Location: US Current Patient Location: Accession/Order Number: [id number] Exam Date: 06/01/2025 10:59 Report Date: 06/01/2025 12:03 At the request of: ROSSANA LEACH Procedure: US OB BPP w non-stress Biophysical profile. Reason for exam: Gestational diabetes COMPARISON: 05/25/2025 TECHNIQUE: Transabdominal imaging of the gravid uterus was obtained. FINDINGS: The early childhood aide classroom reports a BPP of 8 out of 8. DANYA is normal at 11.0 cm. Cardiac activity was visualized by the early childhood aide classroom per tech note. No heart rate was documented. US/US OB BPP w non-stress IMPRESSION: BPP 8 out of 8. Impression dictated by: Bulmaro Arias Jr., D.O. 06/01/2025 12:03 PM Dictation Location: [place] [address] Electronically authenticated by: [id number] Y Date: 06/01/2025 12:03 Dictated By: Bulmaro Arias M.D. Signed By: 06/01/25 1206 DD/ 120 TD/TT: Ceramic Saw Tender: US OB BPP w non-stress Reviewed date:05/13/2025 12:03:41 PM Interpretation: Performing Lab: Notes/Report: Source Facility: [facility] [place] [address] [place] [address] Ultrasound Report Signed Patient: VIMAL FUNES MR#: [id number] : 2000 Acct:[id number] Age/Sex: 25 / F ADM Date: 05/11/25 [facility]: Rossana Leach Ordering Physician: Rossana Leach Date of Service: 05/11/25 Procedure(s): US OB BPP w non-stress Accession Number(s): [id number] cc: Rossana Leach; JENNIFER SEE [place] [address] Patient Name: VIMAL FUNES MRN: [id number] date: 2000 Sex: F [facility] Accession/Order Number: [id number] Exam Date: 05/11/2025 12:01 Report Date: 05/11/2025 12:02 At the request of: ROSSANA LEACH Procedure: US OB BPP w non-stress Biophysical profile. Reason for exam: Gestational diabetes COMPARISON: 05/04/2025 TECHNIQUE: Transabdominal imaging of the gravid uterus was obtained. FINDINGS: The early childhood aide classroom reports a BPP of 8 out of 8. DANYA is normal at 11.9 cm. heart rate 138 bpm. US/US OB BPP w non-stress IMPRESSION: BPP 8 out of 8. Impression dictated by: Bulmaro Arias Jr., D.O. 05/11/2025 12:02 PM Dictation Location: [place] [address] Electronically authenticated by: [id number] Y Date: 05/11/2025 12:02 Dictated By: Bulmaro Arias M.D. Signed By: 05/11/25 1204 DD/ 1202 TD/TT: Ceramic Saw Tender: Reason For Referral No Information Medications Medication [...] ACCESS PPO PLUS LOCAL PLAN [address] [place] [address] [id number] Vimal Funes Self - patient is the insured [employer] [employer] [address] [place] [address] [id number] Vimal Funes Self - patient is the insured Medical (General) History Medical History History ICD Code lead poisoning Surgical History Surgery Date(Month/Year) ear tubes
--- OUTSIDE RECORDS SUMMARY | 2025-06-29 11:06 | XMS_ITS | Encounter Summary ---
Author Organization [facility] Address [address] [place] [address] Care Team Providers Care Box Lining Machine Operator Name Role Phone Unallocated, Noms Provider Primary Care Provi krissy Encounter Details Date Type Department Care Team (Late Contact Info) Description 06/19/2025 Abstract [facility] [address] [place] [place] [address] Jose Rodriguez DO [address] Josué [place], [facility] Social History Tobacco [...] 9:40 AM EDT Routine [facility] [address] [place] [place] [address] Megan Aranda, [address] [place] [phone] documented as of this encounter Visit Diagnoses Not on filedocumented in this encounter Care Teams Box Lining Machine Operator Relationship Specialty Start Date End Date Unallocated, Noms Provider, [address] [place] [address] PCP - General Family Medicine 08/03/24 documented as of this encounter
--- OUTSIDE RECORDS SUMMARY | 2025-06-29 11:06 | XMS_ITS | Encounter Summary ---
Author Organization [facility] tem Address [id number] [address] [place] [address] Care Team Providers Care Furnace Brazer Name Role Phone Unavailable Primary Care Provider [...] Info) Description 07/02/2025 3:30 PM EDT Appointment [facility] US Imaging [address] [place] [address] documented as of this encounter Visit Diagnoses Not on filedocumented in this encounter
--- OUTSIDE RECORDS SUMMARY | 2025-06-29 11:06 | XMS_ITS | Clinical Summary ---
Author Organization [facility] [employer] [facility] tem Address [id number] [address] [place] [address] Care Team Providers Care Piping Drafter Name Role Phone Unavailable Primary Care Provider [...] Travel 06/20/2025 Orders Only Maternal- Medicine at [facility] [address] [place] [phone] Marii Yoo, RN Poor growth affecting management of mother in third trimester, single or unspecified fetus (Primary Dx) 06/18/2025 3:28 PM EDT - 06/18/2025 11:59 PM EDT Hospital Encounter [facility] - [facility] US Imaging [address] [place] [phone] Intrauterine growth restriction affecting care of mother, unspecified trimester, not applicable or unspecified fetus Discharge Disposition: Home 06/18/2025 Travel 06/11/2025 7:48 AM EDT - 06/11/2025 11:59 PM EDT Hospital Encounter [facility] - [facility] US Imaging [address] [place] [address] Poor growth affecting management of mother in third trimester, single or unspecified fetus; Gestational diabetes mellitus (GDM) in third trimester, gestational diabetes method of control unspecified Discharge Disposition: Home 06/11/2025 Travel 06/09/2025 Travel 06/05/2025 Telephone Maternal- Medicine at [facility] [address] [place] [place] [address] 06/04/2025 2:00 PM EDT Telemedicine Maternal- Medicine at [facility] [address] [place] [place] [address] Chris Martin MD Poor growth affecting management of mother in third trimester, single or unspecified fetus (Primary Dx) 06/04/2025 12:41 PM EDT - 06/04/2025 11:59 PM EDT Hospital Encounter [facility] - Ultrasound [address] [place] [address] Mackenzie Rodriguez, Screening, , for anatomic survey Discharge Disposition: Home 06/04/2025 Orders Only Maternal- Medicine at [facility] [address] [place] [address] Marii Yoo, RN Poor growth affecting management of mother in third trimester, single or unspecified fetus (Primary Dx); Gestational diabetes mellitus (GDM) in third trimester, gestational diabetes method of control unspecified 06/04/2025 Travel 05/31/2025 Orders Only Maternal- Medicine at [facility] [address] [place] [address] Ref Prov, Not In System 05/31/2025 Abstract Maternal- Medicine at [facility] [address] [address] External, Scanning Provider 05/28/2025 Telephone Maternal- Medicine at [address] [phone] Chante Muse LD 05/21/2025 Telephone Maternal- Medicine at [address] [address] Chante Muse LD 05/13/2025 1:30 PM EDT Support Visit Maternal- Medicine at [address] [phone] Marjorie Rico, RN Xenia Rayo RD Gestational diabetes mellitus (GDM) in third trimester, gestational diabetes method of control unspecified 05/13/2025 Travel 05/10/2025 Abstract Maternal- Medicine at [address] [phone] External, Scanning Provider from Last 3 Months [...] Info) Description 07/02/2025 3:30 PM EDT Appointment [facility] - [facility] US Imaging [address] [place] [address] Health Maintenance Due Date Last Done Comments Chlamydia Screening 2001 Depression Screening 2013 Tobacco Screening 2013 Adult BMI Screening 2019 DTaP,Tdap and Td Vaccines (7 - Td or Tdap) 05/01/2024 05/01/2014, 06/01/2006, 05/19/2005, Additional history exists Influenza Vaccine 05/27/2025 08/28/2003, 07/26/2003 Pap Smear 02/21/2028 02/20/2025 Medical Devices Not on file Procedures Procedure Name Priority Date/Time Associated Diagnosis Comments [facility] OB FOLLOW-UP, 1 FETUS Routine 06/24/2025 3:06 PM EDT Poor growth affecting management of mother in third trimester, single or unspecified fetus Gestational diabetes mellitus (GDM) in third trimester, gestational diabetes method of control unspecified [facility] AMNIOTIC FLUID VOLUME ASSESSMENT Routine 06/18/2025 4:50 PM EDT Intrauterine growth restriction affecting care of mother, unspecified trimester, not applicable or unspecified fetus [facility] LMTD OB, 1 OR MORE FETUS Routine [...] period is included. Anatomical Region Laterality Modality OB-PRIVATE DUTY LPN Ultrasound 06/24/2025 2:19 PM EDT Narrative 06/24/2025 3:22 PM EDT NAME: JERICA CELIS : 2000 SEX: F Accession Number: [id number] ORDERING PHYSICIAN: CHRIS MARTIN REFERRING PHYSICIAN: MACKENZIE RODRGIUEZ Coding ----- --------- Procedures 32080: Ultrasound, uterus, real time with image documentation, follow up, transabdominal approach per fetus 73523: Doppler velocimetry, ; umbilical artery Indication ----- [...] EFW (oz) 6 oz EFW by: Hadlock (HEJ-XO-EX-FL) Extended Tibia 55.4 mm 32w 4d 3% Khanh Foot 61.3 mm <1% Chitty Timber Management Technician 2.8 mm CM 6.0 mm 12% [...] measures 6cm. Recommendations ----- --------- Please see [facility] recommendations from prior clinical and/or ultrasound report documentation. Subsequent follow up or other follow up as clinically determined by primary OB provider unless otherwise specified by M. Results forwarded to ordering provider so they can follow up with the patient as necessary. Procedure Note Wendy Miranda MD - 06/24/2025 NAME: JERICA CELIS : 2000 SEX: F Accession Number: [id number] ORDERING PHYSICIAN: CHRIS MARTIN REFERRING PHYSICIAN: MACKENZIE RODRIGUEZ Coding ----- --------- Procedures 09063: Ultrasound, uterus, real time with imagedocumentation, follow up, transabdominal approach per fetus 30396: Doppler velocimetry, ; umbilical artery Indication ----- [...] EFW (oz) 6 oz EFW by: Hadlock (IOE-UB-RB-FL) Extended Tibia 55.4 mm 32w 4d 3% Khanh Foot 61.3 mm <1% Chitty Timber Management Technician 2.8 mm CM 6.0 mm 12% [...] thepatient as necessary. us Chris Martin MD [facility] US ORDERABLES Final Resul t * Glucose random or fasting- POCT (05/13/2025) External Glucose Fasting Or Random (Fbs) 80 MANUALLY TRANSCRIBED RESULTS Blood Venous blood / Unknown 05/13/2025 us Wendy Miranda MD LAB BLOOD ORDERABLES Final Resul t Performing Organization Address City/[facility] Co de Phone Number MANUALLY TRANSCRIBED RESULTS * 2nd hr Glucose Tolerance 100 gm load (05/04/2025) Glucose Tolerance Test 2 Hour 186 MANUALLY TRANSCRIBED RESULTS Blood Venous blood / Unknown us Not In System Ref Prov LAB BLOOD ORDERABLES Kayli l Result Performing Organization Address [facility] Co de Phone Number MANUALLY TRANSCRIBED RESULTS * Glucose tolerance, 1 hour (05/04/2025) Glucose Tolerance Test 1 Hour 234 MANUALLY TRANSCRIBED RESULTS Blood Venous blood / Unknown us Not In System Ref Prov LAB BLOOD ORDERABLES Kayli l Result Performing Organization Address [facility] de Phone Number MANUALLY TRANSCRIBED [...] ORDERABLES Kayli l Result Performing Organization Address City/[facility] Co de Phone Number MANUALLY TRANSCRIBED RESULTS from Last 3 Months Insurance [facility] [employer]
--- OUTSIDE RECORDS SUMMARY | 2025-06-29 11:06 | XMS_ITS | Encounter Summary ---
Author Organization [facility] Address [address] [place] [address] Care Team Providers Care Supervisor Pullet Farm Name Role Phone Vaishali Zapata MD Primary Care Provider Bipin cheng Unallocated, Noms Provider Primary Care Provi krissy Encounter Details Date Type Department Care Team (Late st Contact Info) Description 08/02/2024 Abstract [facility] [address] [facility] [place] [address] Jose Rodriguez DO [address] Josué [place], [place] [address] Social History Tobacco Use Types Packs/Day Years [...] 9:40 AM EDT Routine ARJUN PANG [address] [place] [address] Megan Aranda, VLAD [address] [facility] [place] [place] [address] documented as of this encounter Visit Diagnoses Not on filedocumented in this encounter Care Teams Supervisor Pullet Farm Relationship Specialty Start Date End Date Vaishali Zapata MD [address] [place] [address] PCP - General Family Medicine 02/04/23 08/02/24 Unallocated, Noms Provider, [address] [place] [address] PCP - General Family Medicine 08/03/24 documented as of this encounter
--- OUTSIDE RECORDS SUMMARY | 2025-06-29 11:06 | XMS_ITS | Encounter Summary ---
Author Organization [facility] Address [address] [place] [address] Care Team Providers Care Warehouse Distribution Manager Name Role Phone Unallocated, Noms Provider Primary Care Provi krissy Encounter Details Date Type Department Care Team (Late st Contact Info) Description 08/10/2024 Clinisync Result Encounter N[facility] External Department Unsolicited Mackenzie Rodriguez DO [address] [place], [facility] Social History Tobacco Use [...] Routine [facility]S Rafia PANG [address] [place] [address] Megan Aranda, [address] [place] [address] documented as of this encounter Procedures Procedure Name Priority Date/Time Associated Diagnosis Comments US OB TRANSVAGINAL 08/10/2024 8: 44 AM EST documented in this encounter Results * US OB TRANSVAGINAL (08/10/2024 8:44 AM EST) Anatomical Region Laterality Modality Other 08/10/2024 8:44 AM EST Narrative 08/10/2024 8:47 [place] [address] Ultrasound Report Signed Patient: VIMAL PIZANO MR#: [id number] : 2000 Acct:[id number] Age/Sex: 24 / F ADM Date: 08/10/24 Loc: SURGOUT Attending Dr: Mackenzie Rodriguez D.O. Ordering Physician: Mackenzie Rodriguez D.O. Date of Service: 08/10/24 Procedure(s): US OB transvaginal Accession Number(s): [id number] cc: LUIS SEE ; Mackenzie Rodriguez D.O. [address] [address] Patient Name: VIMAL PIZANO MRN: [id number] date: 2000 Sex: F Assigned Patient Location: [facility] Current Patient Location: [facility] Accession/Order Number: [id number] Exam Date: 08/10/2024 08:10 Report Date: 08/10/2024 [...] Signed By: 08/10/24846 DD/ 3 TD/TT: Supervisor Cap And Hat Production: Procedure Note Radiology, Radiologist, MD - 08/10/2024 [place] [address] Ultrasound Report Signed Patient: VIMAL PIZANO MMR#: [id number] : 2000Acct:[id number] Age/Sex: 24 / FADM Date: 08/10/24 Loc: SURGOUT Attending Dr: Mackenzie Rodriguez D.O. Ordering Physician: Mackenzie Rodriguez D.O. Date of Service: 08/10/24 Procedure(s): US OB transvaginal Accession Number(s): [id number] cc: LUIS SEE ; Mackenzie Rodriguez D.O. The [place] [id number] Patient Name: VIMAL PIZANO MRN: [id number] date: 2000 Sex: F Assigned Patient Location: [facility] Current Patient Location: [facility] Accession/Order Number: [id number] Exam Date: 08/10/2024 08:10 Report Date: 08/10/2024 [...] Lavon Herrera M.D. Signed By:08/10/2447 DD/ TD/TT: Supervisor Cap And Hat Production: us Mackenzie Michael DO [facility] Final Result documented in this encounter Visit Diagnoses Not on filedocumented in this encounter Care Teams Warehouse Distribution Manager Relationship Specialty Start Date End Date Unallocated, Noms Provider, [address] [place] [address] PCP - General Family Medicine 08/03/24 documented as of this encounter
--- OUTSIDE RECORDS SUMMARY | 2025-06-29 11:06 | XMS_ITS | Encounter Summary ---
Author Organization [facility] Address [address] [place] [address] Care Team Providers Care Archery Equipment Hay Sorter Name Role Phone Unallocated, Noms Provider Primary Care Provi krissy Encounter Details Date Type Department Care Team (Late st Contact Info) Description 06/06/2025 Results Follow-Up [facility] [place] [facility] [address] [address] [address] Glenna Butler LPN [address] [place] [address] OB 14+ weeks anatomy scan [...] AM EDT Routine [facility] [place] [facility] [address] [place] [address] Megan Aranda, VLAD [address] [address] [place] [place] [address] documented as of this encounter Visit Diagnoses Not on filedocumented in this encounter Care Teams Archery Equipment Hay Sorter Relationship Specialty Start Date End Date Unallocated, Nomjt Vo MD [address] [place] [place] [address] PCP - General Family Medicine 08/03/24 documented as of this encounter
--- OUTSIDE RECORDS SUMMARY | 2025-06-29 11:06 | XMS_ITS | Encounter Summary ---
Author Organization [facility] Address [address] [place] [address] Care Team Providers Care Cycling Instructor Name Role Phone Unallocated, Noms Provider Primary Care Provi krissy Encounter Details Date Type Department Care Team (Late st Contact Info) Description 08/10/2024 Abstract ARJUN PANG [address] [place] [address] Jose Rodriguez DO [address] [facility] [address] [address] Josué [place], [facility]11 [...] EDT Routine ARJUN PANG [address] [place] [address] Megan Aranda, GEOTECHNICAL OPERATING ENGINEER [address] [place] [address] documented as of this encounter Visit Diagnoses Not on filedocumented in this encounter Care Teams Cycling Instructor Relationship Specialty Start Date End Date Unallocated, Noms Provider, [address] [place] [address] PCP - General Family Medicine 08/03/24 documented as of this encounter
--- OUTSIDE RECORDS SUMMARY | 2025-06-29 11:07 | XMS_ITS | Encounter Summary ---
Author Organization [facility] Address [address] [place] [address] Care Team Providers Care Encapsulator Name Role Phone Unallocated, Noms Provider Primary Care Provi krissy Encounter Details Date Type Department Care Team (Late Contact Info) Description 06/05/2025 Abstract NOMMay PANG [address] [place] [address] Jose Rodriguez DO [address] [facility] [address]ué [place], [place] [address] Social History Tobacco Use Types Packs/Day Years [...] 9:40 AM EDT Routine [facility] P[facility] [address] [place] [address] Megan Aranda, [address] [place] [id number] documented as of this encounter Visit Diagnoses Not on filedocumented in this encounter Care Teams Encapsulator Relationship Specialty Start Date End Date Unallocated, Noms Provider, [address] [place] [address] PCP - General Family Medicine 08/03/24 documented as of this encounter
--- OUTSIDE RECORDS SUMMARY | 2025-06-29 11:07 | XMS_ITS | CCD ---
Author Organization [facility] Care Team Providers Care Hospital Unit Coordinator Name Role Phone MICHAEL ., DR [...] Unavailable MISC, DR DOMINIQUE Primary Care Unavailable MURPHY, DR COCO Danielle Consulting Unavailable MICHAEL ., DR MANN Consulting Unavailable MICHAEL ., DR MANN Admitting Unavailable MICHAEL ., DR MANN Attending Unavailable MISC, DR DOMINIQUE Primary Care Unavailable MICHAEL ., DR MANN Consulting Unavailable MICHAEL ., DR MANN Admitting Unavailable MICHAEL ., DR MANN Attending Unavailable MISC, DR DOMINIQUE Primary Care Unavailable MURPHY, DR COCO Danielle Consulting Unavailable MICHAEL ., [...] source) Active 115/iron/folic acid ( 19 ORAL) (9 sources) 115/iron/folic acid ( 19 ORAL) Take [...] of hypertension] 04-11-2025 Episodic Other complications of (10 sources) Poor growth affecting management; Translations: [Maternal care for other known or suspected poor growth, third trimester, not applicable or unspecified] Onset: 06-04-2025 06-04-2025 Episodic Other complications of (1 source) Maternal care for other known or suspected poor growth, unspecified trimester, not applicable or unspecified; Translations: [Maternal care for other known or suspected poor growth, unspecified trimester, not applicable or unspecified] Onset: 06-18-2025 Episodic Other complications of (1 source) Maternal [...] [35 weeks gestation of ] 06-19-2025 Episodic Residual codes; unclassified (2 sources) Gestation period, 36 weeks; Translations: [36 weeks gestation of ] 06-26-2025 Episodic Spontaneous (2 sources) Miscarriage; Translations: [Complete [...] ] Onset: 05-01-2022 Episodic Unclassified (1 source) [facility] ; Translations: [[facility] DIS/COND COMPL ] Onset: 04-27-2022 Urinary tract infections (5 sources) Urinary tract infection, site not specified; Translations: [UTI SITE NOT SPECIFIED] Onset: 05-10-2022 Episodic Viral infection (1 source) Viral infection, unspecified; Translations: [VIRAL INFECTION UNSPECIFIED] Onset: 07-07-2022 Episodic Results Test Name Value Interpretation Reference Range Facility Urinalysis macro (dipstick) panel (U)on 06-26-2025 Bilirubin, UA Negative Negative - 4(70) +++ mg/dL [facility] Blood, UA Negative Negative - 50 Jason/mcL [facility] Clarity, UA Clear [facility] re Color, UA Yellow [facility] e Glucose, UA Negative Negative - 1999(110) [...] UA 6 5 - 9 [facility] e Protein, UA 1+ Negative - 1999(20) ++++ mg/dL [facility] Spec Grav, UA 1.025 1 - 1.03 [facility] Urobilinogen, UA 1.0 0.2 - 12 mg/dL [facility] US OB BPP W NON-STRESS on 06-22-[address] [address] Ultrasound Report Signed Patient: VIMAL FUNES MR#: [id number] : 2000 Acct:[id number] Age/Sex: 25 / F ADM Date: 06/22/25 Loc: US Attending Dr: Rossana Ramos Ordering Physician: Rossana Ramos Date of Service: 06/22/25 Procedure(s): US OB BPP w non-stress Accession Number(s): [id number] cc: Rossana Ramos; JENNIFER SEE [place] [id number] Patient Name: VIMAL FUNES MRN: TBH:[id number] date: 2000 Sex: F Assigned Patient Location: [facility] Current Patient Location: Accession/Order Number: [id number] Exam Date: 06/22/2025 10:52 Report Date: 06/22/2025 19:28 At the request of: ROSSANA RAMOS Procedure: [...] Acharya M.D. 06/22/2025 7:28 PM Dictation Location: [place] [address] Electronically authenticated by: [id number] Y Date: 06/22/2025 19:28 Dictated By: Heriberto Acharya M.D. Signed By: 06/22/251930 DD/ 27 TD/TT: Director Security Risk Management: [facility] Radiology, Radiologist, - 06/22/2025 The [place] [id number] Ultrasound Report Signed Patient: VIMAL FUNES MR#: [id number] : 2000 Acct:[id number] Age/Sex: 25 / F ADM Date: 06/22/25 Loc: US Attending Dr: Rossana Ramos Ordering Physician: Rossana Ramos Date of Service: 06/22/25 Procedure(s): US OB BPP w non-stress Accession Number(s): [id number] cc: Rossana Ramos; JENNIFER SEE [place] [id number] Patient Name: VIMAL FUNES MRN: [facility]:[id number] date: 2000 Sex: F Assigned Patient Location: [facility] Current Patient Location: Accession/Order Number: [id number] Exam Date: 06/22/2025 10:52 Report Date: 06/22/2025 19:28 At the request of: ROSSANA RAMOS Procedure: [...] Acharya M.D. 06/22/2025 7:28 PM Dictation Location: [place] [address] Electronically authenticated by: [id number] Y Date: 06/22/2025 19:28 Dictated By: Heriberto Acharya M.D. Signed By: 06/22/251930 DD/ 27 TD/TT: Director Security Risk Management: [facility] Radiology Study observation (narrative) [facility] US OB BPP W NON-STRESS Ordered By: Radiologist Radiology on 06-22-2025 [facility] [employer] Work Phone: Urinalysis macro (dipstick) panel (U)on 06-19-2025 Bilirubin, UA Negative Negative - 4(70) +++ mg/dL [facility] Blood, UA Negative Negative - 50 Jason/mcL [facility] Clarity, UA Cloudy [facility] re Color, UA Yellow [facility] [employer] e Glucose, UA 1+ Negative - 1999(110) ++++ mg/dL [facility] Center pH, UA 6 5 - 9 [facility] 39 Health e Protein, UA 1+ Negative - 1999(20) ++++ mg/dL [facility] Spec Grav, UA 1.015 1 - 1.03 [facility] Urobilinogen, UA 1.0 0.2 - 12 mg/dL [facility] US OB BPP W NON-STRESS on 06-15-[address] [address] Ultrasound Report Signed Patient: VIMAL FUNES MR#: [id number] : 2000 Acct:[id number] Age/Sex: 25 / F ADM Date: 06/15/25 Loc: [facility] 251-[address]: Rossana Ramos Ordering Physician: Rossana Ramos Date of Service: 06/15/25 Procedure(s): US OB BPP w non-stress Accession Number(s): [id number] cc: JENNIFER Watkins [address] [address] Patient Name: VIMAL FUNES MRN: [id number]:[id number] date: 2000 Sex: F Assigned Patient Location: US Current Patient Location: US Accession/Order Number: [id number] Exam Date: 06/15/2025 11:07 Report Date: 06/15/2025 12:51 At the request of: ROSSANA RAMOS Procedure: US OB BPP w non-stress Biophysical profile. Reason for exam: Gestational diabetes COMPARISON: 06/08/2025 TECHNIQUE: Transabdominal imaging of the gravid uterus was obtained. FINDINGS: The production mechanic reports a BPP of 8 out of 8. DANYA is normal at 11.0 cm. heart rate 136 bpm. US/US OB BPP w non-stress IMPRESSION: BPP 8 out of 8. Impression dictated by: Amadou Carais M.D. 06/15/2025 12:51 PM Dictation Location: [place] [address] Electronically authenticated by: [id number] Y Date: 06/15/2025 12:51 Dictated By: Amadou Carias M.D. Signed By: 06/15/25 1254 DD/ 1251 TD/TT: Director Security Risk Management: [facility] Radiology, Radiologist, MD - 06/15/2025 [place] [address] Ultrasound Report Signed Patient: VIMAL FUNES MR#: [id number] : 2000 Acct:[id number] Age/Sex: 25 / F ADM Date: 06/15/25 Loc: [facility] 251-[address]: Rossana Ramos Ordering Physician: Rossana Ramos Date of Service: 06/15/25 Procedure(s): US OB BPP w non-stress Accession Number(s): [id number] cc: Rossana Ramos; JENNIFER SEE The [address] [address] Patient Name: VIMAL FUNES MRN: [facility]:[id number] date: 2000 Sex: F Assigned Patient Location: Current Patient Location: US Accession/Order Number: [id number] Exam Date: 06/15/2025 11:07 Report Date: 06/15/2025 12:51 At the request of: ROSSANA RAMOS Procedure: US OB BPP w non-stress Biophysical profile. Reason for exam: Gestational diabetes COMPARISON: 06/08/2025 TECHNIQUE: Transabdominal imaging of the gravid uterus was obtained. FINDINGS: The production mechanic reports a BPP of 8 out of 8. DANYA is normal at 11.0 cm. heart rate 136 bpm. US/US OB BPP w non-stress IMPRESSION: BPP 8 out of 8. Impression dictated by: Amadou Carias M.D. 06/15/2025 12:51 PM Dictation Location: [employer] Electronically authenticated by: [id number] Y Date: 06/15/2025 12:51 Dictated By: Amadou Carias M.D. Signed By: 06/15/25 1254 DD/ 1251 TD/TT: Director Security Risk Management: [facility] Radiology Study observation (narrative) [facility] US OB BPP W NON-STRESS Ordered By: Radiologist Radiology on 06-15-2025 [facility] 39 [facility] e Work Phone: Urinalysis macro (dipstick) panel (U)on 06-12-2025 Bilirubin, UA Negative Negative - 4(70) +++ mg/dL [facility] Blood, UA Negative Negative - 50 Jason/mcL [facility] Clarity, UA Clear [facility] re Color, UA Yellow [facility] 39 Health e Glucose, UA Positive Negative - [...] Center pH, UA 6.5 5 - 9 [facility] [employer] e Protein, UA Negative Negative - 1999(20) ++++ mg/dL [facility] Spec Grav, UA 1.015 1 - 1.03 [facility] Urobilinogen, UA 1.0 0.2 - 12 [facility]dL [facility] BPP W NON-STRESS on 06-08-[address] [address] Ultrasound Report Signed Patient: VIMAL FUNES MR#: [id number] : 2000 Acct:[id number] Age/Sex: 25 / F ADM Date: 06/08/25 Loc: US Attending Dr: Rossana Ramos Ordering Physician: Rossana Ramos Date of Service: 06/08/25 Procedure(s): US OB BPP w non-stress Accession Number(s): [id number] cc: Rossana Ramos; JENNIFER SEE [place] [id number] Patient Name: VIMAL FUNES MRN: [facility]:[id number] date: 2000 Sex: F Assigned Patient Location: [facility] Current Patient Location: Accession/Order Number: [id number] Exam Date: 06/08/2025 11:01 Report Date: 06/08/2025 [...] Knapp M.D. 06/08/2025 12:10 PM Dictation Location: [place] [address] Electronically authenticated by: [id number] Y Date: 06/08/2025 12:10 Dictated By: Shivam Knapp D.O. Signed By: 06/08/25 1213 DD/ 1210 TD/TT: Director Security Risk Management: [facility] Radiology, Radiologist, MD - 06/08/2025 The [place] [id number] Ultrasound Report Signed Patient: VIMAL FUNES MR#: [id number] : 2000 Acct:[id number] Age/Sex: 25 / F ADM Date: 06/08/25 Loc: US Attending Dr: Rossana Ramos Ordering Physician: Rossana Ramos Date of Service: 06/08/25 Procedure(s): US OB BPP w non-stress Accession Number(s): [id number] cc: Rossana Ramos; JENNIFER SEE [address] [address] Patient Name: VIMAL FUNES MRN: TBH:[id number] date: 2000 Sex: F Assigned Patient Location: [facility] Current Patient Location: Accession/Order Number: [id number] Exam Date: 06/08/2025 11:01 Report Date: 06/08/2025 [...] Knapp M.D. 06/08/2025 12:10 PM Dictation Location: [place] [address] Electronically authenticated by: [id number] Y Date: 06/08/2025 12:10 Dictated By: Shivam Knapp D.O. Signed By: 06/08/25 1213 DD/ 1210 TD/TT: Director Security Risk Management: [facility] Radiology Study observation (narrative) [facility] US OB BPP W NON-STRESS Ordered By: Radiologist Radiology on 06-08-2025 [facility] Work Phone: US OB BPP W NON-STRESS on 06-01-[address] [address] Ultrasound Report Signed Patient: VIMAL FUNES MR#: [id number] : 2000 Acct:[id number] Age/Sex: 25 / F ADM Date: 06/01/25 Loc: US Attending Dr: Rossana Ramos Ordering Physician: Rossana Ramos Date of Service: 06/01/25 Procedure(s): US OB BPP w non-stress Accession Number(s): [id number] cc: JENNIFER Watkins [place] [address] Patient Name: VIMAL FUNES MRN: [facility]:[id number] date: 2000 Sex: F Assigned Patient Location: US Current Patient Location: Accession/Order Number: [id number] Exam Date: 06/01/2025 10:59 Report Date: 06/01/2025 12:03 At the request of: ROSSANA RAMOS Procedure: US OB BPP w non-stress Biophysical profile. Reason for exam: Gestational diabetes COMPARISON: 05/25/2025 TECHNIQUE: Transabdominal imaging of the gravid uterus was obtained. FINDINGS: The production mechanic reports a BPP of 8 out of 8. DANYA is normal at 11.0 cm. Cardiac activity was visualized by the production mechanic per tech note. No heart rate was documented. US/US OB BPP w non-stress IMPRESSION: BPP 8 out of 8. Impression dictated by: Bulmaro Arias Jr., D.O. 06/01/2025 12:03 PM Dictation Location: [place] [address] Electronically authenticated by: [id number] Y Date: 06/01/2025 12:03 Dictated By: Bulmaro Arias M.D. Signed By: 06/01/25 1206 DD/ 1203 TD/TT: Director Security Risk Management: [facility] Radiology, Radiologist, MD - 06/01/2025 [place] [address] Ultrasound Report Signed Patient: VIMAL FUNES MR#: [id number] : 2000 Acct:[id number] Age/Sex: 25 / F ADM Date: 06/01/25 Loc: US Attending Dr: Rossana Ramos Ordering Physician: Rossana Ramos Date of Service: 06/01/25 Procedure(s): US OB BPP w non-stress Accession Number(s): [id number] cc: JENNIFER Watkins [place] [phone] Patient Name: VIMAL FUNES MRN: [facility]:[id number] date: 2000 Sex: F Assigned Patient Location: US Current Patient Location: Accession/Order Number: [id number] Exam Date: 06/01/2025 10:59 Report Date: 06/01/2025 12:03 At the request of: ROSSANA RAMOS Procedure: US OB BPP w non-stress Biophysical profile. Reason for exam: Gestational diabetes COMPARISON: 05/25/2025 TECHNIQUE: Transabdominal imaging of the gravid uterus was obtained. FINDINGS: The production mechanic reports a BPP of 8 out of 8. DANYA is normal at 11.0 cm. Cardiac activity was visualized by the production mechanic per tech note. No heart rate was documented. US/US OB BPP w non-stress IMPRESSION: BPP 8 out of 8. Impression dictated by: Bulmaro Arias Jr., D.O. 06/01/2025 12:03 PM Dictation Location: [place] [address] Electronically authenticated by: [id number] Y Date: 06/01/2025 12:03 Dictated By: Bulmaro Arias M.D. Signed By: 06/01/25 1206 DD/ 1203 TD/TT: Director Security Risk Management: [facility] Radiology Study observation (narrative) [facility] OB BPP W NON-STRESS Ordered By: Radiologist Radiology on 06-01-2025 [facility] e Work Phone: Urinalysis macro (dipstick) panel (U)on 05-28-2025 Bilirubin, UA Negative Negative - 4(70) +++ mg/dL [facility] Blood, UA Negative Negative - 50 Jason/mcL [facility]A Yellow [facility] e Glucose, UA Negative Negative - 2000(110) [...] Center pH, UA 6.5 5 - 9 [facility] Protein, UA Negative Negative - 1999(20) ++++ mg/dL [facility] Spec Grav, UA 1.005 1 - 1.03 [facility] Urobilinogen, UA 1.0 0.2 - 12 mg/dL [facility] OB BPP W NON-STRESS on 05-25-2025 [place] [address] Ultrasound Report Signed Patient: VIMAL FUNES MR#: [id number] : 2000 Acct:[id number] Age/Sex: 25 / F ADM Date: 05/25/25 Loc: US Attending Dr: Rossana Ramos Ordering Physician: Rossana Ramos Date of Service: 05/25/25 Procedure(s): US OB BPP w non-stress Accession Number(s): [id number] cc: Rossana Ramos; JENNIFER SEE [place] [phone] Patient Name: VIMAL FUNES MRN: TBH:[id number] date: 2000 Sex: F Assigned Patient Location: [facility] Current Patient Location: Accession/Order Number: [id number] Exam Date: 05/25/2025 08:21 Report Date: 05/25/2025 [...] Acharya M.D. 05/25/2025 11:13 AM Dictation Location: [place] Electronically authenticated by: [id number] Y Date: 05/25/2025 11:13 Dictated By: Heriberto Acharya M.D. Signed By: 05/25/25 1116 DD/ 1113 TD/TT: Director Security Risk Management: [facility] Radiology, Radiologist, - 05/25/2025 [place] [address] Ultrasound Report Signed Patient: VIMAL FUNES MR#: [id number] : 2000 Acct:[id number] Age/Sex: 25 / F ADM Date: 05/25/25 Loc: US Attending Dr: Rossana Ramos Ordering Physician: Rossana Ramos Date of Service: 05/25/25 Procedure(s): US OB BPP w non-stress Accession Number(s): [id number] cc: Rossana Ramos; JENNIFER SEE [place] [phone] Patient Name: VIMAL FUNES MRN: [facility]:[id number] date: 2000 Sex: F Assigned Patient Location: [facility] Current Patient Location: Accession/Order Number: [id number] Exam Date: 05/25/2025 08:21 Report Date: 05/25/2025 [...] Acharya M.D. 05/25/2025 11:13 AM Dictation Location: [place] [address] Electronically authenticated by: [id number] Y Date: 05/25/2025 11:13 Dictated By: Heriberto Acharya M.D. Signed By: 05/25/25 1116 DD/ 1113 TD/TT: Director Security Risk Management: [facility] Radiology Study observation (narrative) [facility] US OB BPP W NON-STRESS Ordered By: Radiologist Radiology on 05-25-2025 [facility] Work Phone: Urinalysis macro (dipstick) panel (U)on 05-22-2025 Bilirubin, UA Negative Negative - 4(70) +++ mg/dL [facility] Blood, UA Negative Negative - 50 Jason/mcL [facility] Clarity, UA Clear [facility] re Color, UA Yellow [facility] e Glucose, UA Negative Negative - 2000(110) [...] UA 6 5 - 9 [facility] e Protein, UA Negative Negative - 2000(20) ++++ mg/dL [facility] Spec Grav, UA 1.01 1 - 1.03 [facility] Urobilinogen, UA 0.2 0.2 - 12 mg/dL [facility] TOTAL PROTEIN 24 HOUR UR INEon 05-20-2025 Interpretation and review of laboratory results Abnormal [facility] Protein (U) [Mass/Vol] 6.7 mg/dL NINF - 11.9 mg/dL [facility] TBH TOTAL PROTEIN 24 HOUR URINE 194.3 High [facility] TOTAL VOLUME 24 HOUR URINE 2900 mL/24hr [facility] e ALL CBC WITH AUTO DIFFon BASOPHILS ABSOLUTE AUTO 0 [facility] Basophils/100 WBC (Bld) 0.1 % Low 0.2 - 2.0 % [facility] Eosinophils/100 WBC (Bld) 1.7 % 0.9 - 7.0 % [facility] Erythrocyte distribution width (RBC) [Ratio] 12.7 % [...] (Bld) 4.7 % 1.7 - 12.0 % [facility] NEUTROPHILS ABSOLUTE AUTO 12.6 High [facility] Neutrophils/100 WBC (Bld) 84.1 % High 43.0 - 75.0 % [facility] Platelet mean volume (Bld) [Entitic vol] 11.2 fL 9.5 - 13.5 fL [facility] TBH EO # 0.3 [facility] TBH PLT 223 [facility] RBC 4.17 Low [facility]H WBC 15 High [facility] US OB BPP W NON-STRESS on 05-18-2025 [place] [address] Ultrasound Report Signed Patient: VIMAL FUNES MR#: [id number] : 2000 Acct:[id number] Age/Sex: 25 / F ADM Date: 05/18/25 Loc: US Attending Dr: Rossana Ramos Ordering Physician: Rossana Ramos Date of Service: 05/18/25 Procedure(s): US OB BPP w non-stress Accession Number(s): [id number] cc: JENNIFER Watkins [place] [id number] Patient Name: VIMAL FUNES MRN: [facility]:[id number] date: 2000 Sex: F Assigned Patient Location: [facility] Current Patient Location: Accession/Order Number: [id number] Exam Date: 05/18/2025 11:16 Report Date: 05/18/2025 [...] Acharya M.D. 05/18/2025 5:08 PM Dictation Location: [place] [address] Electronically authenticated by: [id number] Y Date: 05/18/2025 17:08 Dictated By: Heriberto Acharya M.D. Signed By: 05/18/252016 DD/ 07 TD/TT: Director Security Risk Management: [facility] Radiology, Radiologist, MD - 05/18/2025 [place] [address] Ultrasound Report Signed Patient: VIMAL FUNES MR#: [id number] : 2000 Acct:[id number] Age/Sex: 25 / F ADM Date: 05/18/25 Loc: US Attending Dr: Rossana Ramos Ordering Physician: Rossana Ramos Date of Service: 05/18/25 Procedure(s): US OB BPP w non-stress Accession Number(s): [id number] cc: Rossana SEE,JENNIFER [address] [address] Patient Name: VIMAL FUNES MRN: [id number] date: 2000 Sex: F Assigned Patient Location: [facility] Current Patient Location: Accession/Order Number: [id number] Exam Date: 05/18/2025 11:16 Report Date: 05/18/2025 [...] Acharya M.D. 05/18/2025 5:08 PM Dictation Location: [place] [address] Electronically authenticated by: [id number] Y Date: 05/18/2025 17:08 Dictated By: Heriberto Acharya M.D. Signed By: 05/18/252016 DD/ 07 TD/TT: Director Security Risk Management: [facility] Radiology Study observation (narrative) [facility] OB BPP W NON-STRESS Ordered By: Radiologist Radiology on 05-18-2025 [facility] [employer] Work Phone: Glucose random or fasting- P OCTOrdered By: Sheridan Smallwood on 05-13-2025 External Glucose Fasting Or Random (Fbs) [facility] US OB BPP W NON-STRESS on 05-11-[address] [address] Ultrasound Report Signed Patient: VIMAL FUNES MR#: [id number] : 2000 Acct:[id number] Age/Sex: 25 / F ADM Date: 05/11/25 Loc: [facility] [address] Att[address]: Rossana Ramos Ordering Physician: Rossana Ramos Date of Service: 05/11/25 Procedure(s): US OB BPP w non-stress Accession Number(s): [id number] cc: Rossana Ramos; JENNIFER SEE [place] [id number] Patient Name: VIMAL FUNES MRN: [facility]:[id number] date: 2000 Sex: F Assigned Patient Location: [facility] Current Patient Location: [facility] Accession/Order Number: [id number] Exam Date: 05/11/2025 12:01 Report Date: 05/11/2025 12:02 At the request of: ROSSANA RAMOS Procedure: US OB BPP w non-stress Biophysical profile. Reason for exam: Gestational diabetes COMPARISON: 05/04/2025 TECHNIQUE: Transabdominal imaging of the gravid uterus was obtained. FINDINGS: The production mechanic reports a BPP of 8 out of 8. DANYA is normal at 11.9 cm. heart rate 138 bpm. US/US OB BPP w non-stress IMPRESSION: BPP 8 out of 8. Impression dictated by: Bulmaro Arias Jr., D.O. 05/11/2025 12:02 PM Dictation Location: [place] [address] Electronically authenticated by: [id number] Y Date: 05/11/2025 12:02 Dictated By: Bulmaro Arias M.D. Signed By: 05/11/25 1204 DD/ 1202 TD/TT: Director Security Risk Management: [facility] Radiology, Radiologist, MD - 05/11/2025 [place] [address] Ultrasound Report Signed Patient: VIMAL FUNES MR#: [id number] : 2000 Acct:[id number] Age/Sex: 25 / F ADM Date: 05/11/25 Loc: [facility] Deepak Attending Dr: Rossana Ramos Ordering Physician: Rossana Ramos Date of Service: 05/11/25 Procedure(s): US OB BPP w non-stress Accession Number(s): [id number] cc: Rossana Ramos; JENNIFER SEE [place] [phone] Patient Name: VIMAL FUNES MRN: [id number] date: 2000 Sex: F Assigned Patient Location: [facility] Current Patient Location: [facility] Accession/Order Number: [id number] Exam Date: 05/11/2025 12:01 Report Date: 05/11/2025 12:02 At the request of: ROSSANA RAMOS Procedure: US OB BPP w non-stress Biophysical profile. Reason for exam: Gestational diabetes COMPARISON: 05/04/2025 TECHNIQUE: Transabdominal imaging of the gravid uterus was obtained. FINDINGS: The production mechanic reports a BPP of 8 out of 8. DANYA is normal at 11.9 cm. heart rate 138 bpm. US/US OB BPP w non-stress IMPRESSION: BPP 8 out of 8. Impression dictated by: Bulmaro Arias Jr., D.O. 05/11/2025 12:02 PM Dictation Location: [place] [address] Electronically authenticated by: [id number] Y Date: 05/11/2025 12:02 Dictated By: Bulmaro Arias M.D. Signed By: 05/11/25 1204 DD/ 1202 TD/TT: Director Security Risk Management: [facility] [employer] Radiology Study observation (narrative) [facility] [employer] US OB BPP W NON-STRESS Ordered By: Radiologist Radiology on 05-11-2025 [facility] [employer] [employer] [facility] Work Phone: [facility] TOTAL PROTEIN 24 HOUR UR INEon 05-06-2025 TOTAL PROTEIN URINE RANDOM <6.0 NINF - 11.9 mg/dL [facility] [employer] TOTAL VOLUME 24 HOUR URINE 3700 mL/24hr [facility] [employer] CLINISYNC [facility] 39 Health e 2nd hr Glucose Tolerance 100 gm loadon 05-04-2025 Glucose Tolerance Test 2 Hour 186 [facility] ALL CBC WITH AUTO DIFFon BASOPHILS [...] [Mass/Vol] 34.7 g/dL 29.9 - 35.2 g/dL [facility] MCV (RBC) [Entitic vol] 92.1 fL 81.0 - 99.0 fL [facility] MONOCYTES ABSOLUTE AUTO 0.6 [facility] Monocytes/100 WBC (Bld) 5 % 1.7 - 12.0 % [facility] NEUTROPHILS ABSOLUTE AUTO 9.9 High [facility] Neutrophils/100 WBC (Bld) 79.2 % High 43.0 - 75.0 % [facility] Platelet mean volume (Bld) [Entitic vol] 11 fL 9.5 - 13.5 fL [facility] TBH EO # 0.3 [facility] e TB PLT 226 [facility] TB RBC 4.29 [facility] TB WBC 12.5 High [facility] CLINISYNC Glucose tolerance, 1 houron 05-04-2025 Glucose Tolerance Test 1 Hour 234 [facility] Glucose tolerance, 3 hourson 05-04-2025 Glucose Tolerance Test 3 Hour 133 [facility] Glucose, tolerance fastingon 05-04-2025 Glucose Tolerance Test Fasting 108 [facility] No Panel Informationon 05-04 [facility] US OB BPP W NON-STRESS on 05-04-2025 [facility] [place] [id number] Ultrasound Report Signed Patient: VIMAL FUNES MR#: [id number] : 2000 Acct:[id number] Age/Sex: 25 / F ADM Date: 05/04/25 Loc: [facility] 250- Attending Dr: Rossana Ramos Ordering Physician: Rossana Ramos Date of Service: 05/04/25 Procedure(s): US OB BPP w non-stress Accession Number(s): [id number] cc: Rossana Ramos; JENNIFER SEE [place] [id number] Patient Name: VIMAL FUNES MRN: [facility]:[id number] date: 2000 Sex: F Assigned Patient Location: [facility] Current Patient Location: [facility] Accession/Order Number: [id number] Exam Date: 05/04/2025 12:08 Report Date: 05/04/2025 12:09 At the request of: ROSSANA RAMOS Procedure: US OB BPP w non-stress Biophysical profile. Reason for exam: Gestational diabetes COMPARISON: None TECHNIQUE: Transabdominal imaging of the gravid uterus was obtained. FINDINGS: The production mechanic reports a BPP of 8 out of 8. DANYA is normal at 12.4 cm. heart rate 150 bpm. US/US OB BPP w non-stress IMPRESSION: BPP 8 out of 8. Impression dictated by: Bulmaro Arias Jr., D.O. 05/04/2025 12:09 PM Dictation Location: [place] [address] Electronically authenticated by: [id number] Y Date: 05/04/2025 12:09 Dictated By: Bulmaro Arias M.D. Signed By: 05/04/25 1212 DD/ 1209 TD/TT: Director Security Risk Management: [facility] Radiology, Radiologist, - 05/04/2025 [facility] [place] [id number] Ultrasound Report Signed Patient: VIMAL FUNES MR#: [id number] : 2000 Acct:[id number] Age/Sex: 25 / F ADM Date: 05/04/25 Loc: [facility] 250-[address]: Rossana Ramos Ordering Physician: Rossana Ramos Date of Service: 05/04/25 Procedure(s): US OB BPP w non-stress Accession Number(s): [id number] cc: Rossana Ramos; JENNIFER SEE [place] [id number] Patient Name: VIMAL FUNES MRN: [facility]:[id number] date: 2000 Sex: F Assigned Patient Location: [facility] Current Patient Location: [facility] Accession/Order Number: [id number] Exam Date: 05/04/2025 12:08 Report Date: 05/04/2025 12:09 At the request of: ROSSANA RAMOS Procedure: US OB BPP w non-stress Biophysical profile. Reason for exam: Gestational diabetes COMPARISON: None TECHNIQUE: Transabdominal imaging of the gravid uterus was obtained. FINDINGS: The production mechanic reports a BPP of 8 out of 8. DANYA is normal at 12.4 cm. heart rate 150 bpm. US/US OB BPP w non-stress IMPRESSION: BPP 8 out of 8. Impression dictated by: Bulmaro Arias Jr., D.O. 05/04/2025 12:09 PM Dictation Location: [place] [address] Electronically authenticated by: [id number] Y Date: 05/04/2025 12:09 Dictated By: Bulmaro Arias M.D. Signed By: 05/04/25 1212 DD/ 1209 TD/TT: Director Security Risk Management: [facility] [employer] Radiology Study observation (narrative) [facility] US OB BPP W NON-STRESS Ordered By: Radiologist Radiology on 05-04-2025 [facility] [employer] Work Phone: US OB GROWTHon 05-04-2025 [place] [address] Ultrasound Report Signed Patient: VIMAL FUNES MR#: [id number] : 2000 Acct:[id number] Age/Sex: 25 / F ADM Date: 05/04/25 Loc: [facility] 250-[address]: Rossana Ramos Ordering Physician: Rossana Ramos Date of Service: 05/04/25 Procedure(s): US OB growth Accession Number(s): [id number] cc: Rossana Ramos; JENNIFER SEE [place] [address] Patient Name: VIMAL FUNES MRN: [facility]:[id number] date: 2000 Sex: F Assigned Patient Location: [facility] Current Patient Location: [facility] Accession/Order Number: [id number] Exam Date: 05/04/2025 12:06 Report Date: 05/04/2025 [...] Jr., D.O. 05/04/2025 12:08 PM Dictation Location: [employer] Electronically authenticated by: [id number] Y Date: 05/04/2025 12:08 Dictated By: Bulmaro Arias M.D. Signed By: 05/04/25 1211 DD/ 1208 TD/TT: Director Security Risk Management: [facility] Radiology, Radiologist, - 05/04/2025 [place] [address] Ultrasound Report Signed Patient: VIMAL FUNES MR#: [id number] : 2000 Acct:[id number] Age/Sex: 25 / F ADM Date: 05/04/25 Loc: [facility] 250-[address]: Rossana Ramos Ordering Physician: Rossana Ramos Date of Service: 05/04/25 Procedure(s): US OB growth Accession Number(s): [id number] cc: Rossana Ramos; JENNIFER SEE [place] [address] Patient Name: VIMAL FUNES MRN: [facility]:[id number] date: 2000 Sex: F Assigned Patient Location: [facility] Current Patient Location: [facility] Accession/Order Number: [id number] Exam Date: 05/04/2025 12:06 Report Date: 05/04/2025 [...] Jr., D.O. 05/04/2025 12:08 PM Dictation Location: [place] [address] Electronically authenticated by: [id number] Y Date: 05/04/2025 12:08 Dictated By: Bulmaro Arias M.D. Signed By: 05/04/25 1211 DD/ 1208 TD/TT: Director Security Risk Management: [facility] Radiology Study observation (narrative) [facility] OB GROWTHOrdered By: Jeimy kwanogwilly Radiology on 05-04-2025 [facility] 39 Health e Work Phone: Urinalysis macro (dipstick) panel (U)on 04-30-2025 Bilirubin, UA Negative Negative - 4(70) +++ mg/dL [facility] Blood, UA Negative Negative - 50 Jason/mcL [facility] Clarity, UA Clear [facility] re Color, UA Yellow [facility] Health[facility] e Glucose, UA Positive Negative [...] UA 6 5 - 9 [facility] e Protein, UA Negative Negative - 1999(20) ++++ mg/dL [facility] Spec Grav, UA 1.01 1 - 1.03 [facility] Urobilinogen, UA 1.0 0.2 - 12 mg/dL [facility] Healthcar e ALL CBC WITH [...] [facility] TBH EO # 0.3 [facility] PLT 202 [facility] RBC 4.29 [facility] TBH WBC 12.5 High [facility] Health[facility] CLINISYNC Glucose 1h post 50g loadon 0 04-27-2025 Glucose, 1 hr PP 50GM dose 171 [facility] No Panel Informationon 04-27 [facility] Health[facility] e Urinalysis macro (dipstick) panel (U)on 04-25-2025 Bilirubin, UA Negative Negative - 4(70) +++ mg/dL [facility] Blood, UA Negative Negative - 50 Jason/mcL [facility] Clarity, UA Clear [facility] Healthca re Color, UA Yellow [facility] [...] Center pH, UA 6.5 5 - 9 [facility] e Protein, UA Negative Negative - 1999(20) ++++ mg/dL [facility] Spec Grav, UA 1.01 1 - 1.03 [facility] Urobilinogen, UA 0.2 0.2 - 12 mg/dL [facility] Urinalysis macro (dipstick) panel (U)on 04-11-2025 Bilirubin, UA Negative Negative - 4(70) +++ mg/dL [facility] Blood, UA Negative Negative - 50 Jason/mcL [facility] Clarity, UA Clear [facility] re Color, UA Yellow [facility] e Glucose, UA Negative Negative - 1999(110) ++++ mg/dL [facility] Interpretation and review of laboratory results Normal [facility] Ketones, UA Negative Negative - 160(16) ++++ mg/dL [facility] Leukocytes, UA Negative Negative - 500+++ Carlos/mcL [facility] Nitrite, UA Negative Negative - Positive [facility] Healthcare pH, UA 7 5 - 9 [facility] Protein, UA Negative Negative - 1999(20) ++++ mg/dL [facility] Spec Grav, UA 1.005 1 - 1.03 [facility] care Urobilinogen, UA 1.0 0.2 - 12 mg/dL [facility] US OB INCOMPLETE ANATOMYon 0 03-25-2025 [place] [address] Ultrasound Report Signed Patient: VIMAL FUNES MR#: [id number] : 2000 Acct:[id number] Age/Sex: 24 / F ADM Date: 03/23/25 Loc: US Attending Dr: Jose Rodriguez D.O. Ordering Physician: Jose Rodriguez D.O. Date of Service: 03/23/25 Procedure(s): US OB incomplete anatomy Accession Number(s): [id number] cc: JENNIFER SEE ; Jose Rodriguez D.O. [place] [address] Patient Name: VIMAL FUNES MRN: [id number]:[id number] date: 2000 Sex: F Assigned Patient Location: Current Patient Location: US Accession/Order Number: [id number] Exam Date: 03/25/2025 08:23 Report Date: 03/25/2025 [...] Brown M.D. 03/25/2025 8:25 AM Dictation Location: [place] [address] Electronically authenticated by: [id number] Date: 03/25/2025 08:25 Dictated By: Meghana Brown M.D. Signed By: 03/25/25826 DD/ 4 TD/TT: Director Security Risk Management: [facility] Radiology, Radiologist, MD - 03/25/2025 [place] [address] Ultrasound Report Signed Patient: VIMAL FUNES MR#: [id number] : 2000 Acct:[id number] Age/Sex: 24 / F ADM Date: 03/23/25 Loc: US Attending Dr: Jose Rodriguez D.O. Ordering Physician: Jose Rodriguez D.O. Date of Service: 03/23/25 Procedure(s): US OB incomplete anatomy Accession Number(s): [id number] cc: JENNIFER SEE ; Jose Rodriguez D.O. [place] [address] Patient Name: VIMAL FUNES MRN: [facility]:[id number] date: 2000 Sex: F Assigned Patient Location: Current Patient Location: Accession/Order Number: [id number] Exam Date: 03/25/2025 08:23 Report Date: 03/25/2025 [...] Brown M.D. 03/25/2025 8:25 AM Dictation Location: [place] [address] Electronically authenticated by: [id number] Y Date: 03/25/2025 08:25 Dictated By: Meghana Brown M.D. Signed By: 03/25/25826 DD/ 4 TD/TT: Director Security Risk Management: [facility] Radiology Study observation (narrative) [facility] US OB INCOMPLETE ANATOMYOrde red By: Radiologist Radiology on 03-25-2025 [facility] Phone: Urinalysis macro (dipstick) panel (U)on 03-14-2025 Bilirubin, UA Negative Negative - 4(70) +++ mg/dL [facility] Blood, UA Negative Negative - 50 Jason/mcL [facility] Clarity, UA Clear [facility] re Color, UA Yellow [facility] 39 Health e Glucose, UA Negative Negative - [...] Center pH, UA 7 5 - 9 [facility] 39 Health e Protein, UA Negative Negative - 2000(20) ++++ mg/dL [facility] Spec Grav, UA 1.01 1 - 1.03 [facility] Urobilinogen, UA 0.2 0.2 - 12 mg/dL [facility] No Panel InformationOrdered By: Radiologist Radiology on 03-08-2025 [facility] [employer] Work Phone: No Panel Informationon 03-08 Radiology Study observation (narrative) [facility] US OB ANATOMYon 03-08-[address] [address] Ultrasound Report Signed Patient: VIMAL FUNES MR#: [id number] : 2000 Acct:[id number] Age/Sex: 24 / F ADM Date: 03/08/25 Loc: US Attending Dr: oJse Rodriguez D.O. Ordering Physician: Jose Rodriguez D.O. Date of Service: 03/08/25 Procedure(s): US OB anatomy Accession Number(s): [id number] cc: JENNIFER SEE ; Jose Rodriguez D.O. [address] [address] Patient Name: VIMAL FUNES MRN: [facility]:[id number] date: 2000 Sex: F Assigned Patient Location: US Current Patient Location: US Accession/Order Number: [id number] Exam Date: 03/08/2025 20:31 Report Date: 03/08/2025 [...] Knapp M.D. 03/08/2025 8:36 PM Dictation Location: [facility] Electronically authenticated by: [id number] Y Date: 03/08/2025 20:36 Dictated By: Shivam Knapp D.O. Signed By: 03/08/252037 DD/ 35 TD/TT: Director Security Risk Management: [facility] Radiology, Radiologist, MD - 03/08/[address] [address] Ultrasound Report Signed Patient: VIMAL FUNES MR#: [id number] : 2000 Acct:[id number] Age/Sex: 24 / F ADM Date: 03/08/25 Loc: US Attending Dr: Jose Rodriguez D.O. Ordering Physician: Jose Rodriguez D.O. Date of Service: 03/08/25 Procedure(s): US OB anatomy Accession Number(s): [id number] cc: JENNIFER SEE ; Jose Rodriguez D.O. [place] [address] Patient Name: VIMAL FUNES MRN: [id number]:[id number] date: 2000 Sex: F Assigned Patient Location: US Current Patient Location: US Accession/Order Number: [id number] Exam Date: 03/08/2025 20:31 Report Date: 03/08/2025 [...] Knapp M.D. 03/08/2025 8:36 PM Dictation Location: [place] [address] Electronically authenticated by: [id number] Y Date: 03/08/2025 20:36 Dictated By: Shivam Knapp D.O. Signed By: 03/08/252037 DD/ 35 TD/TT: Director Security Risk Management: [facility] US OB CERVICAL LENGTHon 02-24 [place] [address] Ultrasound Report Signed Patient: VIMAL FUNES MR#: [id number] : 2000 Acct:[id number] Age/Sex: 24 / F ADM Date: 03/08/25 Loc: US Attending Dr: Jose Rodriguez D.O. Ordering Physician: Jose Rodriguez D.O. Date of Service: 03/08/25 Procedure(s): US OB cervical length Accession Number(s): [id number] cc: JENNIFER SEE ; Jose Rodriguez D.O. [place] [id number] Patient Name: VIMAL FUNES MRN: [facility]:[id number] date: 2000 Sex: F Assigned Patient Location: US Current Patient Location: US Accession/Order Number: [id number] Exam Date: 03/08/2025 20:31 Report Date: 03/08/2025 [...] Knapp M.D. 03/08/2025 8:36 PM Dictation Location: [place] [address] Electronically authenticated by: [id number] Y Date: 03/08/2025 20:36 Dictated By: Shivam Knapp D.O. Signed By: 03/08/252037 DD/ 35 TD/TT: Director Security Risk Management: [facility] Radiology, Radiologist, MD - 03/08/2025 [place] [address] Ultrasound Report Signed Patient: VIMAL FUNES MR#: [id number] : 2000 Acct:[id number] Age/Sex: 24 / F ADM Date: 03/08/25 Loc: US Attending Dr: Jose Rodriguez D.O. Ordering Physician: Jose Rodriguez D.O. Date of Service: 03/08/25 Procedure(s): US OB cervical length Accession Number(s): [id number] cc: JENNIFER SEE ; Jose Rodriguez D.O. [place] [address] Patient Name: VIMAL FUNES MRN: [facility]:[id number] date: 2000 Sex: F Assigned Patient Location: US Current Patient Location: US Accession/Order Number: [id number] Exam Date: 03/08/2025 20:31 Report Date: 03/08/2025 [...] Knapp M.D. 03/08/2025 8:36 PM Dictation Location: [employer] Electronically authenticated by: [id number] Y Date: 03/08/2025 20:36 Dictated By: Shivam Knapp D.O. Signed By: 03/08/252037 DD/ 35 TD/TT: Director Security Risk Management: [facility] IGP,APTIMA HPV,AGE GDLNon AGE GDLN ACOG TESTING Note . [facility] Comment on above: TESTS RESULT FLAG UN ITS REF RANGE LAB Clinician Provided Cytology Information Source.............Endocervix No. of containers..01 ThinPrep Vial Age Algo ACOG Yris... FLAG LEGEND: L-Low Normal,H-High Normal,LL-Alert Low,HH-Alert High <-Panic Low,>-Panic High,A-Abnormal,AA-Critical Abnormal Performed at: 01 =[address] [facility] [place] [address] Jenise Byrne MD, IGP, RFX APTIMA HPV ASCU Note . [facility] Comment on above: TESTS RESULT FLAG UN ITS REF RANGE LAB DIAGNOSIS: 02 NEGATIVE FOR INTRAEPITHELIAL LESION OR MALIGNANCY. Specimen adequacy: 02 Satisfactory for evaluation. Endocervical and/or squamous metaplastic cells (endocervical component) are present. Performed by: Hussein Alvarez, Aerial Lineman ([facility]) . 02 Note: Note 02 The [...] <-Panic Low,>-Panic High,A-Abnormal,AA-Critical Abnormal Performed at: [address] [address] Jenise Byrne MD, Performed at: =[facility] [id number] Quality Control Clerk: Jenise Byrne MD, Phone: [phone] Performed at: [facility] [address] [id number] Quality Control Clerk: Jenise Byrne MD, Phone: [phone] SPATULA-ALONE ENDOCERVIX CLINISYNC [facility] Healthcar e RECURRENT VAGINITIS (HTRX)on 02-22-2025 ATOPOBIUM VAGINAE 0 [facility] ATOPOBIUM VAGINAE Not detected [facility] BVAB 2,3 (BACTERIAL VAGINOSIS ASSOCIATED BACTERIA 2, 3); MOBILUNCUS SPP 0 [facility] BVAB 2,3 (BACTERIAL VAGINOSIS ASSOCIATED BACTERIA 2, 3); MOBILUNCUS SPP Not detected [facility] Healthcare SIMEON ALBICANS, PARAPSILOSIS, TROPICALIS 0 [facility] SIMEON ALBICANS, PARAPSILOSIS, TROPICALIS Not detected [facility] SIMEON GLABRATA 0 [facility] SIMEON GLABRATA Not detected [facility]USEI [facility] KRUSEI Not detected NOM [...] TRICHOMONAS VAGINALIS Not detected [facility] Urinalysis macro (dipstick) panel (U)on 02-20-2025 Bilirubin, UA Negative Negative - 4(70) +++ mg/dL [facility] Blood, UA Negative Negative - 50 Jason/mcL [facility] Clarity, UA Clear [facility] re Color, UA Yellow [facility] Health[facility] e Glucose, UA Negative Negative [...] Center pH, UA 7 5 - 9 [facility] Health[facility] e Protein, UA Negative Negative - 1999(20) ++++ mg/dL [facility] Spec Grav, UA 1.01 1 - 1.03 [facility] Urobilinogen, UA 0.2 0.2 - 12 mg/dL [facility] Unlisted Lab Teston 01-16-20 [facility] Urinalysis macro (dipstick) panel (U)on 01-14-2025 Bilirubin, UA Negative Negative - 4(70) +++ mg/dL [facility] Blood, UA Positive Negative - 50 Jason/mcL [facility] Comment on above: trace-intact Clarity, UA Clear [facility] Healthca re Color, UA Yellow [facility] Health[facility] e Glucose, UA Negative Negative [...] Center pH, UA 6 5 - 9 [facility] Health[facility] e Protein, UA Negative Negative - 1999(20) ++++ mg/dL [facility] Spec Grav, UA 1.005 1 - 1.03 [facility] Urobilinogen, UA 0.2 0.2 - 12 mg/dL [facility] Free Cell DNA (Non-Pro Medica Send Out)on 01-13-2025 [facility] ALL CBC WITH AUTO DIFFon BASOPHILS [...] [facility]2 [facility]T 216 [facility] Healthcar e TBH RBC 4.65 [facility] TBH WBC 9.2 [facility] Healthcar e CLINISYNC CBC without diffOrdered By: Lay Peacock on 01-05-2025 Rbc Mcv (Fl) By Automated Count 91.4 [facility] Drug Screen, Urineon 025 Amphetamine/Methamphet amine Negative [facility] Barbiturates Negative [facility] Benzodiazepines Negarive [facility] Cocaine Metabolite Negative [facility] Ecstasy Negative [facility] Methadone Negative [facility] Opiates Negative [facility] Phencyclidine Negative [facility] Thc Marijuana, Urine Negative [facility] HBV surface Ag IA Qlon 01-05 Hepatitis B Surface Antigen Negative [facility] HIV 1+2 Ab+HIV1 p24 Ag IA Ql on 01-05-2025 HIV 1&2 AB/AG Non-Reactive [facility] Hemoglobin A1con 01-05-2025 HbA1c (Bld) [Mass fraction] 5 % 4.0 - 6.0 % [facility] Laboratory - Hematology and Cell countson 01-05-2025 Hematocrit (Bld) [Volume fraction] 42.5 % [facility] 39 Health e Hemoglobin (Bld) [Mass/Vol] 14.7 g/dL [facility] No Panel Informationon 01-05 [facility] 39 Health e Rubella IGG immune statuson 01-05-2025 Rubella immune IgG 1.57 [facility] Type and screenon 01-05-2025 Abo/Rh(D) Positive [facility] US OB TRANSVAGINALon 025 US OB [...] visualized. Electronically Signed:Praveen y signed by RADHA PEO II, MD, PHD at 14-Dec-2024 08:35:59 PM [facility] Normal Not Available Comment on above: Order Comment: US OB TRANSVAGINAL No LMP recorded. [facility] PREG QUANT HCGon 025 HCG QUANTITATIVE 46599 mIU/mL [facility] Comment on above: 5-50 0.2-1 WEEK 50-500 1-2 WEEKS 100-5,000 2-3 WEEKS 500-10,000 3-4 WEEKS 1,000-50,000 4-5 WEEKS 10,000-100,000 5-6 WEEKS 15,000-200,000 6-8 WEEKS 10,000-100,000 2-3 [facility] PREG QUANT HCGon 025 HCG QUANTITATIVE 6254 mIU/mL [facility] Comment on above: 5-50 0.2-1 WEEK 50-500 1-2 WEEKS 100-5,000 2-3 WEEKS 500-10,000 3-4 WEEKS 1,000-50,000 4-5 WEEKS 10,000-100,000 5-6 WEEKS 15,000-200,000 6-8 WEEKS 10,000-100,000 2-3 [facility] PREG QUANT HCGon 024 HCG QUANTITATIVE 6 mIU/mL [facility] Comment on above: 5-50 0.2-1 WEEK 50-500 1-2 WEEKS 100-5,000 2-3 WEEKS 500-10,000 3-4 WEEKS 1,000-50,000 4-5 WEEKS 10,000-100,000 5-6 WEEKS 15,000-200,000 6-8 WEEKS 10,000-100,000 2-3 [facility] ALL CBC WITH AUTO DIFFon BASOPHILS ABSOLUTE AUTO 0 [facility] Basophils/100 WBC (Bld) 0.5 % 0.2 - 2.0 % [facility] Eosinophils/100 WBC (Bld) 6.2 % 0.9 - 7.0 % [facility] [...] % [facility] LYMPHOCYTES ABSOLUTE AUTO 2 [facility] Lymphocytes/100 WBC (Bld) 22.1 % 20.5 - 60.0 % [facility] MCH (RBC) [Entitic mass] 31.7 pg 26.7 - 34.0 pg [facility] MCHC (RBC) [Mass/Vol] 33.8 g/dL 29.9 - 35.2 g/dL [facility] MCV (RBC) [Entitic vol] 93.8 fL 81.0 - 99.0 fL [facility] MONOCYTES ABSOLUTE AUTO 0.5 [facility] Monocytes/100 WBC (Bld) 5.3 % 1.7 - 12.0 % [facility] NEUTROPHILS ABSOLUTE AUTO 5.8 [facility] Neutrophils/100 WBC (Bld) 65.7 % 43.0 - 75.0 % [facility] Platelet mean volume (Bld) [Entitic vol] 10 fL 9.5 - 13.5 fL [facility] TBH EO # 0.6 [facility] PLT 236 [facility] RBC 4.67 [facility] WBC 8.9 [facility] CLINISYNC [facility] [place] 08-10-2024 L Specimen: [id number] Received: 08/10/24 Status: CAROL Parker Num: [id number] Spec Type: Surgical Subm Dr: Jose Rodriguez Tissues: A Products of Conception - Spontaneous or Missed (CONTENTS OF CONCEPT Procedures: HE/2, Gross/Micro L4 Age/ Patient Sex Location Account Attending Physician Vimal Funes LABELL [id number] Jose Rodriguez SPEC NUM: [id number] RECD: 08/10/24 STATUS: CAROL PARKER NUM: [id number] CAROLIN: 08/10/[address] [facility] [address]: Jose Rodriguez ENTERED: 08/10/24 [facility] DR: Rafia,Vignesh SPEC TYPE: Surgical DEPT: MONICA ALTMAN ENTERED BY: [id number] RECV BY: [id number] ORDERED: HE/2, Gross/Micro L4 ORDERED: HE/2, Gross/Micro [...] villi and decidua. No tissue is identified. Tooling Engineering Tech sections of the chorionic villi are submitted in cassette A1 with assistance representative sections of the decidua is submitted in cassette A2. (2, ss, [id number]) CPT Codes 44037 Specimen: [id number] Received: 08/10/24 Status: CAROL Parker Num: [id number] Spec Type: Surgical Subm Dr: Jose Rodriguez Tissues: A Products of Conception - Spontaneous or Missed (CONTENTS OF CONCEPT Procedures: HE/Sandra Gross/Agusto L4 Patient: Vimal Funes [id number] (Continued) Signed (signature on file) Josh Aragon MD 08/13/24 5932 Normal [facility] TB PREG QUANT HCGon HCG QUANTITATIVE 240 mIU/mL [facility] EO # 0.3 [facility] PLT 263 [facility] e TB RBC 4.82 [facility] WBC 10.6 [facility] e CLINISYNC No Panel Informationon 07-21 [facility] e [facility] DRUG SCREEN RAPID (URINE )on 07-21-2024 [...] ng/mL CANNABINOID SCREEN URINE Negative NEGATIVE [facility] COCAINE SCREEN URINE Negative NEGATIVE [facility] METHADONE SCREEN URINE Negative NEGATIVE NO [facility] METHAMPHETAMINES SCREEN URINE Negative NEGATIVE [facility] OPIATE SCREEN URINE Negative NEGATIVE [facility] OXYCODONE SCREEN URINE Negative NEGATIVE NO [facility] PHENCYCLIDINE SCREEN URINE Negative NEGATIVE [facility] TRICYCLIC ANTIDEPRESSANT URINE Negative NEGATIVE [facility] REEFLEX IF POSITIVE CLINISYNC HCG ( test) Ql (U)o n 06-29-2024 Interpretation and review of laboratory results Abnormal [facility] Preg Test, Ur Positive [facility] Urinalysis macro (dipstick) panel (U)on 06-29-2024 Bilirubin, UA Negative Negative - 4(70) +++ mg/dL [facility] Blood, UA Negative Negative - 50 Jason/mcL [facility] Clarity, UA Clear [facility] re Color, UA Yellow [facility] Glucose, UA Negative Negative - 2000(110) ++++ [...] Center pH, UA 7.0 5 - 9 [facility] Healthcar e Protein, UA Negative Negative - 1999(20) ++++ mg/dL [facility] Spec Grav, UA 1.015 1 - 1.03 [facility] Urobilinogen, UA 0.2 0.2 - 12 mg/dL [facility] Health[facility] e XR hand RT min 3V*on 023 XR hand RT min 3V* [facility] [employer] Other XR hand RT min 3V* [facility] [employer] Other XR hand RT min 3V* [address] [place] [address] [employer] Other XR hand RT min 3V* CASSIE Tinoco [address] [employer] Other XR hand RT min 3V* XRay Report [employer] Other XR hand RT min 3V* Signed [employer] Other XR hand RT min 3V* Patient: Vimal Funes MR#: [id number] [employer] Other XR hand RT min 3V* 18 [employer] Other XR hand RT min 3V* : 2000 Acct:[id number] [employer] Other XR hand RT min 3V* Age/Sex: 22 / F ADM Date: 12/26/22 [employer] Other XR hand RT min 3V* Loc: XDUCLY Room: Type: [facility] [employer] Other XR hand RT min 3V* Attending Dr: Jennifer GIL [employer] Other XR hand RT min 3V* Copies to: JEFFERY Rodriguez [employer] Other XR hand RT min 3V* Ordering Provider: JEFFERY Rodriguez [employer] Other XR hand RT min 3V* Date of Service: 12/26/22 [employer] Other XR hand RT min 3V* XR/XR hand RT min 3V*: RIGHT HAND INJURY [employer] Other XR hand RT min 3V* RIGHT HAND - 4 views [employer] Other XR hand RT min 3V* REASON FOR EXAM: Patient had right thumb hyperextended yesterday when trying to open the door. Now [employer] Other XR hand RT min 3V* with pain. [employer] Other XR hand RT min 3V* COMPARISON: None [employer] Other XR hand RT min 3V* FINDINGS: [employer] Other XR hand RT min 3V* No focal soft tissue abnormality. There appears to be avulsion fracture involving the base of the [employer] Other XR hand RT min 3V* distal phalanx of the thumb. Joint spaces appear maintained. No bony erosions. [employer] Other XR hand RT min 3V* XR/XR hand RT min 3V* [employer] Other XR hand RT min 3V* IMPRESSION: [employer] Other XR hand RT min 3V* AVULSION FRACTURE INVOLVING THE BASE OF THE DISTAL PHALANX OF THE THUMB. [employer] Other XR hand RT min 3V* Impression dictated by: Bulmaro Arias Jr., D.O.12/26/2022 1:44 PM [employer] Other XR hand RT min 3V* Dictation Location: [facility] [employer] Other XR hand RT min 3V* Transcribed By: LYNETTE 12/26/22 1344 [facility] [employer] Other XR hand RT min 3V* Dictated By: Bulmaro Arias Jr, DO 12/26/22 1343 [facility] [employer] Other XR hand RT min 3V* Signed By: [facility] [employer] Other XR hand RT min 3V* 12/26/22 1344 [facility] [employer] Other PAP ACOG PANEL 2: 22 to 30on 11-09-2022 . . [facility] Comment on above: Performed By: #### [id number] ####[facility] [address] [place], [place] [address]Dr. Donis Mancini Age Gdln ACOG Testing [facility] Comment on above: Performed By: #### 4 [id number] ####[facility] L[address] [place], [place] [address]DrGene Mancini DIAGNOSIS: Comment [facility] Comment on above: Result Comment: NEGA TIVE FOR INTRAEPITHELIAL LESION OR MALIGNANCY. Performed By: #### 4 [id number] ####[facility] [address] [place], [place] [address]DrGene Mancini Methodology: Comment [facility] Comment on above: Result Comment: This liquid based ThinPrep(R) pap test was screened with the use of an image guided system. Performed By: #### 4 [id number] ####[facility] [address] [place], [place] [address]Dr. Donis Mancini Note: Comment [facility] Comment on above: Result Comment: The Pap smear is a screening test designed to aid in the detection of premalignant and malignant conditions of the uterine cervix. It is not a diagnostic procedure and should not be used as the sole means of detecting cervical cancer. Both false-positive and false-negative reports do occur. . Performed By: #### 4 [id number] ####[facility] [address] [place], [place] [address]DrGene Mancini Performed by: Comment [facility] Comment on above: Result Comment: Zuleima Lin, Thermal Cutting Tracer Machine Operator (ASCP) Performed By: #### 4 [id number] ####[facility] [address] [address]Dr. Donis Mancini Reflex Criteria: Comment Normal [facility] Comment on above: Result Comment: The HPV DNA reflex criteria were not met with this specimen result therefore, no HPV testing was performed. . Performed By: #### 4 [id number] ####[facility] [address] [address]DrGene Mancini Specimen adequacy: Comment Normal The [facility] Comment on above: Result Comment: Sati sfactory for evaluation. Endocervical and/or squamous metaplastic cells (endocervical component) are present. Performed By: #### 4 [id number] ####[facility] [address] [address]DrGene Mancini Cytology Cervical or vaginal smear or scraping studyOrdered By: Jael Nix on 11-02-2022 [facility] CBC AUTO DIFFon 08-11-2022 BASO # 0.0 103/ul Normal 0.0-0.1 [facility] Comment on above: Performed By: #### C T/NGNA #### [facility] Laboratory [address] [place] [address] Dr. Donis Mancini Basophils/100 WBC (Bld) 0.2 % Normal 0.2-2.0 [facility] Comment on above: Performed By: #### C T/NGNA #### [facility] Laboratory [address] [place] [address] Dr. Donis Mancini EO # 0.1 103/ul Normal 0.0-0.7 [facility] Comment on above: Performed By: #### C T/NGNA #### [facility] Laboratory [address] [place] [address] Dr. Donis Mancini Eosinophils/100 WBC (Bld) 0.5 % Critically low 0.9-7.0 [facility] Comment on above: Performed By: #### C T/NGNA #### [facility] Laboratory [address] [place] [address] Dr. Donis Mancini Erythrocyte distribution width (RBC) [Ratio] 12.5 % Normal 11.0-15.0 [facility] Comment on above: Performed By: #### C T/NGNA #### [facility] Laboratory [address] [place] [address] Dr. Donis Mancini Hematocrit (Bld) [Volume fraction] 35.9 % Critically low 36.0-48.0 [facility] Comment on above: Performed By: #### C T/NGNA #### [facility] Laboratory [address] [address] [address] Donis Mancini Hemoglobin (Bld) [Mass/Vol] 12.4 g/dL Normal 12.0-16.0 [facility] Comment on above: Result Comment: michelet ent delivered Performed By: #### C T/NGNA #### [facility] Laboratory [address] [place] [address] Dr. Donis Mancini IG # 0.10 10e3/ul Critically high 0.00-0.03 [facility] Comment on above: Performed By: #### C T/NGNA #### [facility] Laboratory [address] [address] [address] Donis Mancini IG % 0.5 % Normal 0.0-0.5 [facility] Comment on above: Performed By: #### C T/NGNA #### [facility] Laboratory [address] [address] [address] Donis Mancini LYMPH # 1.5 103/ul Normal 1.2-3.8 The [facility] Comment on above: Performed By: #### C T/NGNA #### [facility] Laboratory [address] [address] [address] Donis Mancini Lymphocytes/100 WBC (Bld) 7.6 % Critically low 20.5-60.0 [facility] Comment on above: Performed By: #### C T/NGNA #### [facility] Laboratory [address] [address] [address] Donis Mancini MANUAL DIFF REQ NO Normal [facility] Comment on above: Performed By: #### C T/NGNA #### [facility] Laboratory [address] [address] [address] Donis Mancini MCH (RBC) [Entitic mass] 32.2 pg Normal 26.7-34.0 [facility] Comment on above: Performed By: #### C T/NGNA #### [facility] Laboratory [address] [place] [address] Dr. Donis Mancini MCHC (RBC) [Mass/Vol] 34.5 g/dL Normal 29.9-35.2 The [facility] Comment on above: Performed By: #### C T/NGNA #### [facility] Laboratory [address] [place] [address] Dr. Donis Mancini MCV (RBC) [Entitic vol] 93.2 fL Normal 81.0-99.0 [facility] Comment on above: Performed By: #### C T/NGNA #### [facility] Laboratory [address] [place] [address] Dr. Donis Mancini MONO # 1.3 103/ul Critically high 0.3-0.8 [facility] Comment on above: Performed By: #### C T/NGNA #### [facility] Laboratory [address] [place] [address] Dr. Donis Mancini Monocytes/100 WBC (Bld) 6.8 % Normal 1.7-12.0 [facility] Comment on above: Performed By: #### C T/NGNA #### [facility] Laboratory [address] [place] [address] Dr. Donis Mancini NEUT # 16.2 103/ul Critically high 1.4-6.5 [facility] Comment on above: Performed By: #### C T/NGNA #### [facility] Laboratory [address] [place] [address] Dr. Donis Mancini Neutrophils/100 WBC (Bld) 84.4 % Critically high 43.0-75.0 [facility] Comment on above: Performed By: #### C T/NGNA #### [facility] Laboratory [address] [place] [address] Dr. Donis Mancini Platelet mean volume (Bld) [Entitic vol] 11.8 fL Normal 9.5-13.5 The [facility] Comment on above: Performed By: #### C T/NGNA #### [facility] Laboratory [address] [place] [address] Dr. Donis Mancini PLT 156 103/ul Normal 150-450 The [facility] Comment on above: Performed By: #### C T/NGNA #### [facility] Laboratory [address] [place] [address] Dr. Donis Mancini RBC 3.85 106/ul Critically low 4.20-5.40 [facility] Comment on above: Performed By: #### C T/NGNA #### [facility] Laboratory [address] [place] [address] Dr. Donis Mancini WBC 19.2 103/ul Critically high 4.0-11.0 [facility] Comment on above: Performed By: #### C T/NGNA #### [facility] Laboratory [address] [place] [address] Dr. Donis Mancini [facility]on 07[facility]27 SARS-CoV-2 (COVID-19) RNA INESSA+probe Ql (Unsp spec) Not detected Normal NOT DETECTED The [facility] Comment on above: Result Comment: When diagnostic [...] for this test is supported by the [place] of Health and Human Service's declaration that [...] C VDTBH ####[facility] [address] [address]Dr. Donis Mancini DRUG SCREEN RAPID (URINE)on 08-10-2022 AMP Negative Normal NEGATIVE The [facility] Comment on above: Performed By: #### D RUGRPD ####[facility] [address] [address]Dr. Laceyjavi Mancini BAR Negative Normal NEGATIVE The [facility] Comment on above: Performed By: #### D RUGRPD ####[facility] [address] [address]Dr. Laceyjavi Mancini BUP Negative Normal NEGATIVE The [facility] Comment on above: Performed By: #### D RUGRPD ####[facility] [address] [place], [place] [address]Dr. Laceyjavi Mancini BZO Negative Normal NEGATIVE The [facility] Comment on above: Performed By: #### D RUGRPD ####[facility] [address] [address]Dr. Laceyjavi Mancini ALEXA Negative Normal NEGATIVE The [facility] Comment on above: Performed By: #### D RUGRPD ####[facility] [address] [place], [place] [address]Dr. Donis Mancini CUT-OFFS SEE BELOW Normal The [facility] Comment on above: Result Comment: AMP (Amphetamine): [...] D RUGRPD ####[facility] [address] [place], [place] [address]Dr. Donis Mancini DRUG CUT HEADER DRUG CLASS TEST SYSTEM CUT-OFF CONCENTRATIONS ARE FOLLOWS: Normal The [facility] Comment on above: Performed By: #### D RUGRPD ####[facility] [address] [address]Dr. Donis Mancini mAMP Negative Normal NEGATIVE The [facility] Comment on above: Performed By: #### D RUGRPD ####[facility] [address] [id number]. Yijavi Mancini MTD Negative Normal NEGATIVE The [facility] Comment on above: Performed By: #### D RUGRPD ####[facility] [address] [place] [address]Dr. Yijavi Mancini OPI Negative Normal NEGATIVE The [facility] Comment on above: Performed By: #### D RUGRPD ####[facility] [address] [place], [place] [address]Dr. Yilan Mancini OXY Negative Normal NEGATIVE The [facility] Comment on above: Performed By: #### D RUGRPD ####[facility] [address] [place], [place] [address]Dr. Yijavi Mancini PCP Negative Normal NEGATIVE The [facility] Comment on above: Performed By: #### D RUGRPD ####[facility] [address] [place], [place] [address]Dr. Yijavi Mancini PPX Negative Normal NEGATIVE The [facility] Comment on above: Performed By: #### D RUGRPD ####[facility] [address] [place], [place] [address]Dr. Yijavi Mancini TCA Negative Normal NEGATIVE The [facility] Comment on above: Performed By: #### D RUGRPD ####[facility] [address] [place] [address]Dr. Yijavi Mancini THC Negative Normal NEGATIVE The [facility] Comment on above: Performed By: #### D RUGRPD ####[facility] [address] [place], [place] [address]Dr. Yilan Mancini TYPE AND SCREENon 08-10-2022 TYPE AND SCREEN Negative Normal [facility] Comment on above: Performed By: #### T NS ####[facility] [address] [place] [id number] Mancini US PREG BIOPHY W NON STRESSo [...] Normal The [facility] US PREG GROWTHon 08-10-2022 US PREG GROWTH [...] Normal The [facility] CBC AUTO DIFFon 08-09-2022 BASO # 0.0 103/ul Normal 0.0-0.1 [facility] Comment on above: Performed By: #### C BC ####[facility] [address] [place], [place] [address]Dr. Donis Mancini Basophils/100 WBC (Bld) 0.2 % Normal 0.2-2.0 [facility] Comment on above: Performed By: #### C BC ####[facility] [address] [address]Dr. Donis Mancini EO # 0.4 103/ul Normal 0.0-0.7 [facility] Comment on above: Performed By: #### C BC ####[facility] [address] [place] [address]Dr. Donis Mancini Eosinophils/100 WBC (Bld) 2.8 % Normal 0.9-7.0 [facility] Comment on above: Performed By: #### C BC ####[facility] [address] [place], [place] [address]Dr. Donis Mancini Erythrocyte distribution width (RBC) [Ratio] 12.2 % Normal 11.0-15.0 [facility] Comment on above: Performed By: #### C BC ####[facility] [address] [place], [place] [address]Dr. Donis Mancini Hematocrit (Bld) [Volume fraction] 41.4 % Normal 36.0-48.0 [facility] Comment on above: Performed By: #### C BC ####[facility] [address] [place], [place] [address]Dr. Donis Mancini Hemoglobin (Bld) [Mass/Vol] 14.4 g/dL Normal 12.0-16.0 [facility] Comment on above: Performed By: #### C BC ####[facility] [address] [place], [place] [address]Dr. Donis Mancini IG # 0.06 10e3/ul Critically high 0.00-0.03 [facility] Comment on above: Performed By: #### C BC ####[facility] [address] [place], [place] [address]Dr. Laceyjavi Mancini IG % 0.5 % Normal 0.0-0.5 [facility] Comment on above: Performed By: #### C BC ####[facility] [address] [place], [place] [address]Dr. Donis Mancini LYMPH # 1.5 103/ul Normal 1.2-3.8 [facility] Comment on above: Performed By: #### C BC ####[facility] [address] [place] [address]Dr. Donis Mancini Lymphocytes/100 WBC (Bld) 11.7 % Critically low 20.5-60.0 [facility] Comment on above: Performed By: #### C BC ####[facility] [address] [place] [address]Dr. Donis Mancini MANUAL DIFF REQ NO Normal [facility] Comment on above: Performed By: #### C BC ####[facility] [address] [place] [address]Dr. Donis Mancini MCH (RBC) [Entitic mass] 31.9 pg Normal 26.7-34.0 [facility] Comment on above: Performed By: #### C BC ####[facility] [address] [place], [place] [address]Dr. Donis Mancini MCHC (RBC) [Mass/Vol] 34.8 g/dL Normal 29.9-35.2 [facility] Comment on above: Performed By: #### C BC ####[facility] [address] [place], [place] [address]Dr. Donis Mancini MCV (RBC) [Entitic vol] 91.8 fL Normal 81.0-99.0 [facility] Comment on above: Performed By: #### C BC ####[facility] [address] [place] [address]Dr. Donis Mancini MONO # 1.0 103/ul Critically high 0.3-0.8 [facility] Comment on above: Performed By: #### C BC ####[facility] [address] [place], [place] [address]Dr. Donis Mancini Monocytes/100 WBC (Bld) 7.5 % Normal 1.7-12.0 [facility] Comment on above: Performed By: #### C BC ####[facility] [address] [place], [place] [address]Dr. Donis Mancini NEUT # 10.0 103/ul Critically high 1.4-6.5 [facility] Comment on above: Performed By: #### C BC ####[facility] [address] [address]Dr. Donis Mancini Neutrophils/100 WBC (Bld) 77.3 % Critically high 43.0-75.0 [facility] Comment on above: Performed By: #### C BC ####[facility] [address] [address]Dr. Donis Mancini Platelet mean volume (Bld) [Entitic vol] 11.6 fL Normal 9.5-13.5 [facility] Comment on above: Performed By: #### C BC ####[facility] [address] [place] [address]DrGene Mancini PLT 184 103/ul Normal 150-450 [facility] Comment on above: Performed By: #### C BC ####[facility] [address] [place] [address]DrGene Mancini RBC 4.51 106/ul Normal 4.20-5.40 [facility] Comment on above: Performed By: #### C BC ####[facility] [address] [place] [address]DrGene Mancini WBC 12.9 103/ul Critically high 4.0-11.0 [facility] Comment on above: Performed By: #### C BC ####[facility] [address] [id number]. Donis Mancini LDHon 08-09-2022 LDH 167 U/L Normal 81-234 [facility] Comment on above: Performed By: #### C T/NGNA #### [facility] [address] [address] [address] Donis Mancini PROF 14(COMP METB)on 022 Albumin [Mass/Vol] 2.7 g/dL Critically low 3.4-5.0 Th [facility] Comment on above: Performed By: #### C T/NGNA #### [facility] [address] [address] [address] Donis Mancini Albumin/Globulin [Mass ratio] 0.6 {ratio} Normal [facility] Comment on above: Performed By: #### C T/NGNA #### [facility] [address] [address] [address] Donis Mancini ALP [Catalytic activity/Vol] 176 U/L Critically high 46-116 [facility] Comment on above: Performed By: #### C T/NGNA #### [facility] [address] [address] [address] Donis Mancini ALT [Catalytic activity/Vol] 20 U/L Normal 14-59 [facility] Comment on above: Performed By: #### C T/NGNA #### [facility] [address] [place] [address] Dr. Donis Mancini Anion gap [Moles/Vol] 12.9 mmol/L Normal [facility] Comment on above: Performed By: #### C T/NGNA #### [facility] [address] [address] [address] Donis Mancini AST [Catalytic activity/Vol] 20 U/L Normal 15-37 [facility] Comment on above: Performed By: #### C T/NGNA #### [facility] [address] [place] [address] Dr. Donis Mancini Bilirubin [Mass/Vol] 0.1 mg/dL Critically low 0.2-1.0 [facility] Comment on above: Performed By: #### C T/NGNA #### [facility] [address] [place] [address] Dr. Donis Mancini Calcium [Mass/Vol] 9.1 mg/dL Normal 8.5-10.1 [facility] Comment on above: Performed By: #### C T/NGNA #### [facility] [address] [place] [address] Dr. Donis Mancini Chloride [Moles/Vol] 104 mmol/L Normal 98-107 [facility] Comment on above: Performed By: #### C T/NGNA #### [facility] [address] [place] [address] Dr. Donis Mancini CO2 [Moles/Vol] 22.9 mmol/L Normal 21.0-32.0 [facility] Comment on above: Performed By: #### C T/NGNA #### [facility] [address] [address] [address] Donis Mancini Creatinine [Mass/Vol] 0.43 mg/dL Critically low 0.55-1.02 [facility] Comment on above: Performed By: #### C T/NGNA #### [facility] [address] [address] [address] Donis Mancini EGFR-AF AUSTRALIAN >60 Normal >=60 [facility] Comment on above: Performed By: #### C T/NGNA #### [facility] [address] [place] [address] Dr. Donis Mancini EGFR-NON AF AUSTRALIAN >60 Normal >=60 The [facility] Comment on above: Performed By: #### C T/NGNA #### [facility] [address] [address] [address] Donis Mancini Globulin (S) [Mass/Vol] 4.2 g/dL Normal [facility] Comment on above: Performed By: #### C T/NGNA #### [facility] [address] [address] [address] Donis Mancini Glucose [Mass/Vol] 95 mg/dL Normal 74-106 The [facility] Comment on above: Performed By: #### C T/NGNA #### [facility] [address] [address] [address] Donis Mancini Potassium [Moles/Vol] 3.8 mmol/L Normal 3.5-5.1 The [facility] Comment on above: Performed By: #### C T/NGNA #### [facility] [address] [place] [address] Dr. Donis Mancini Protein [Mass/Vol] 6.9 g/dL Normal 6.4-8.2 The [facility] Comment on above: Performed By: #### C T/NGNA #### [facility] [address] [place] [address] Dr. Donis Mancini Sodium [Moles/Vol] 136 mmol/L Normal 136-145 [facility] Comment on above: Performed By: #### C T/NGNA #### [facility] [address] [place] [address] Dr. Donis Mancini Urea nitrogen [Mass/Vol] 10.0 mg/dL Normal 7.0-18.0 [facility] Comment on above: Performed By: #### C T/NGNA #### [facility] [address] [place] [address] Dr. Donis Mancini Urea nitrogen/Creatinine [Mass ratio] 23.3 mg/mg Normal [facility] Comment on above: Performed By: #### C T/NGNA #### [facility] [address] [place] [address] Dr. Donis Mancini URIC ACID SERUMon 08-09-2022 Urate [Mass/Vol] 3.6 mg/dL Normal 2.6-6.0 [facility] Comment on above: Performed By: #### C T/NGNA #### [facility] [address] [place] [address] Dr. Donis Mancini CBC AUTO DIFFon 08-07-2022 BASO # 0.0 103/ul Normal 0.0-0.1 [facility] Comment on above: Performed By: #### U AMIC #### [facility] [address] [place] [address] Dr. Donis Mancini Basophils/100 WBC (Bld) 0.2 % Normal 0.2-2.0 [facility] Comment on above: Performed By: #### U AMIC #### [facility] [address] [place] [address] Dr. Donis Mancini EO # 0.2 103/ul Normal 0.0-0.7 [facility] Comment on above: Performed By: #### U AMIC #### [facility] [address] [place] [address] Dr. Donis Mancini Eosinophils/100 WBC (Bld) 1.8 % Normal 0.9-7.0 [facility] Comment on above: Performed By: #### U AMIC #### [facility] [address] [address] [address] Donis Mancini Erythrocyte distribution width (RBC) [Ratio] 12.3 % Normal 11.0-15.0 [facility] Comment on above: Performed By: #### U AMIC #### [facility] [address] [address] [address] Donis Mancini Hematocrit (Bld) [Volume fraction] 45.7 % Normal 36.0-48.0 [facility] Comment on above: Performed By: #### U AMIC #### [facility] [address] [address] [address] Donis Mancini Hemoglobin (Bld) [Mass/Vol] 16.0 g/dL Normal 12.0-16.0 [facility] Comment on above: Performed By: #### U AMIC #### [facility] [address] [address] [address] Donis Mancini IG # 0.07 10e3/ul Critically high 0.00-0.03 [facility] Comment on above: Performed By: #### U AMIC #### [facility] [address] [address] [address] Donis Mancini IG % 0.5 % Normal 0.0-0.5 [facility] Comment on above: Performed By: #### U AMIC #### [facility] [address] [address] [address] Donis Mancini LYMPH # 1.5 103/ul Normal 1.2-3.8 [facility] Comment on above: Performed By: #### U AMIC #### [facility] [address] [address] [address] Donis Mancini Lymphocytes/100 WBC (Bld) 11.2 % Critically low 20.5-60.0 [facility] Comment on above: Performed By: #### U AMIC #### [facility] [address] [place] [address] Dr. Donis Mancini MANUAL DIFF REQ NO Normal [facility] Comment on above: Performed By: #### U AMIC #### [facility] [address] [address] [address] Donis Mancini MCH (RBC) [Entitic mass] 32.0 pg Normal 26.7-34.0 The [facility] Comment on above: Performed By: #### U AMIC #### [facility] [address] [address] [address] Donis Mancini MCHC (RBC) [Mass/Vol] 35.0 g/dL Normal 29.9-35.2 The [facility] Comment on above: Performed By: #### U AMIC #### [facility] [address] [address] [address] Donis Mancini MCV (RBC) [Entitic vol] 91.4 fL Normal 81.0-99.0 The [facility] Comment on above: Performed By: #### U AMIC #### [facility] [address] [address] [address] Donis Mancini MONO # 0.9 103/ul Critically high 0.3-0.8 The [facility] Comment on above: Performed By: #### U AMIC #### [facility] [address] [address] [address] Donis Mancini Monocytes/100 WBC (Bld) 6.3 % Normal 1.7-12.0 The [facility] Comment on above: Performed By: #### U AMIC #### [facility] [address] [address] [address] Donis Mancini NEUT # 10.9 103/ul Critically high 1.4-6.5 [facility] Comment on above: Performed By: #### U AMIC #### [facility] [address] [address] [address] Donis Mancini Neutrophils/100 WBC (Bld) 80.0 % Critically high 43.0-75.0 The [facility] Comment on above: Performed By: #### U AMIC #### [facility] [address] [address] [address] Donis Mancini Platelet mean volume (Bld) [Entitic vol] 11.5 fL Normal 9.5-13.5 [facility] Comment on above: Performed By: #### U AMIC #### [facility] [address] [place], [place] [address] Dr. Donis Mancini PLT 182 103/ul Normal 150-450 [facility] Comment on above: Performed By: #### U AMIC #### [facility] [address] [address] [address] Donis Mancini RBC 5.00 106/ul Normal 4.20-5.40 [facility] Comment on above: Performed By: #### U AMIC #### [facility] [address] [place], [place] [address] Dr. Donis Mancini WBC 13.6 103/ul Critically high 4.0-11.0 [facility] Comment on above: Performed By: #### U AMIC #### [facility] [address] [address] [address] Donis Mancini LDHon 08-07-2022 LDH 171 U/L Normal 81-234 [facility] Comment on above: Performed By: #### C MP, URIC, LDH ####[facility] [address] [address]DrGene Mancini PROF 14(COMP METB)on 022 Albumin [Mass/Vol] 2.9 g/dL Critically low 3.4-5.0 Th [facility] Comment on above: Performed By: #### C MP, URIC, LDH ####[facility] [address] [address]Dr. Donis Mancini Albumin/Globulin [Mass ratio] 0.6 {ratio} Normal [facility] Comment on above: Performed By: #### C MP, URIC, LDH ####[facility] [address] [address]Dr. Donis Mancini ALP [Catalytic activity/Vol] 192 U/L Critically high 46-116 [facility] Comment on above: Performed By: #### C MP, URIC, LDH ####[facility] [address] [address]Dr. Donis Mancini ALT [Catalytic activity/Vol] 23 U/L Normal 14-59 [facility] Comment on above: Performed By: #### C MP, URIC, LDH ####[facility] [address] [address]Dr. Donis Mancini Anion gap [Moles/Vol] 14.4 mmol/L Normal Th e [facility] Comment on above: Performed By: #### C MP, URIC, LDH ####[facility] [address] [address]Dr. Donis Mancini AST [Catalytic activity/Vol] 23 U/L Normal 15-37 [facility] Comment on above: Performed By: #### C MP, URIC, LDH ####[facility] [address] [address]Dr. Donis Mancini Bilirubin [Mass/Vol] 0.2 mg/dL Normal 0.2-1.0 The [facility] Comment on above: Performed By: #### C MP, URIC, LDH ####[facility] [address] [place], [place] [address]Dr. Donis Mancini Calcium [Mass/Vol] 9.4 mg/dL Normal 8.5-10.1 [facility] Comment on above: Performed By: #### C MP, URIC, LDH ####[facility] [address] [place], [place] [address]Dr. Donis Mancini Chloride [Moles/Vol] 104 mmol/L Normal 98-107 The [facility] Comment on above: Performed By: #### C MP, URIC, LDH ####[facility] [address] [place], [place] [address]Dr. Donis Mancini CO2 [Moles/Vol] 21.7 mmol/L Normal 21.0-32.0 [facility] Comment on above: Performed By: #### C MP, URIC, LDH ####[facility] [address] [address]Dr. Donis Mancini Creatinine [Mass/Vol] 0.46 mg/dL Critically low 0.55-1.02 [facility] Comment on above: Performed By: #### C MP, URIC, LDH ####[facility] [address] [address]. Yilan Mancini EGFR-AF AUSTRALIAN >60 Normal >=60 [facility] Comment on above: Performed By: #### C MP, URIC, LDH ####[facility] [address] [address]. Laceylan Mancini EGFR-NON AF AUSTRALIAN >60 Normal >=60 The [facility] Comment on above: Performed By: #### C MP, URIC, LDH ####[facility] [address] [address]Dr. Donis Mancini Globulin (S) [Mass/Vol] 4.6 g/dL Normal The [facility] Comment on above: Performed By: #### C MP, URIC, LDH ####[facility] [address] [address]. Laceylan Mancini Glucose [Mass/Vol] 89 mg/dL Normal 74-106 The [facility] Comment on above: Performed By: #### C MP, URIC, LDH ####[facility] [address] [address]. Laceylan Mancini Potassium [Moles/Vol] 4.1 mmol/L Normal 3.5-5.1 The [facility] Comment on above: Performed By: #### C MP, URIC, LDH ####[facility] [address] [address]. Laceylan Mancini Protein [Mass/Vol] 7.5 g/dL Normal 6.4-8.2 The [facility] Comment on above: Performed By: #### C MP, URIC, LDH ####[facility] [address] [address] Laceylan Mancini Sodium [Moles/Vol] 136 mmol/L Normal 136-145 The [facility] Comment on above: Performed By: #### C MP, URIC, LDH ####[facility] [address] [address]. Laceylan Mnacini Urea nitrogen [Mass/Vol] 8.0 mg/dL Normal 7.0-18.0 The [facility] Comment on above: Performed By: #### C MP, URIC, LDH ####[facility] [address] [id number] Donis Mancini Urea nitrogen/Creatinine [Mass ratio] 17.4 mg/mg Normal [facility] Comment on above: Performed By: #### C MP, URIC, LDH ####[facility] [address] [place], [place] [address]Dr. Donis Mancini PROTIMEon 08-07-2022 INR Coag (PPP) [Relative time] {INR} Normal [facility] Comment on above: Performed By: #### U AMIC #### [facility] [address] [address] [address] Donis Mancini INR GUIDELINES SEE BELOW Normal [facility] Comment on above: Result Comment: NICCI RED INR: 2.0 - 3.0 CONDITIONS NOT LISTED BELOW 2.5 - 3.5 FOR PROSTHETIC HEART VALVE REPLACEMENT 2.5 - 3.5 RECURRENT THROMBOSIS Performed By: #### U AMIC #### [facility] [address] [address] [address] Donis Mancini PT Coag (PPP) [Time] 9.8 s Normal 9.0-11.6 [facility] Comment on above: Performed By: #### U AMIC #### [facility] [address] [place] [address] Dr. Donis Mancini PTTon 08-07-2022 aPTT Coag (Bld) [Time] 28.5 s Normal 22.3-36.2 [facility] Comment on above: Performed By: #### U AMIC #### [facility] [address] [place] [address] Dr. Donis Mancini UA (CLEAN/CATCH) INTERNAL REVIEW AND AUDIT COMPLIANCE/MICRO I F IND.on 08-07-2022 Bilirubin Ql (U) Negative Normal NEGATIVE [facility] Comment on above: Performed By: #### U AMIC #### [facility] [address] [place] [address] Dr. Donis Mancini Clarity (U) CLEAR Normal CLEAR [facility] Comment on above: Performed By: #### U AMIC #### [facility] [address] [address] [address] Donis Mancini Color (U) LT. YELLOW Normal YELLOW The [facility] Comment on above: Performed By: #### U AMIC #### [facility] [address] [address] [address] Donis Mancini Glucose Ql (U) Negative Normal NEGATIVE [facility] Comment on above: Performed By: #### U AMIC #### [facility] [address] [address] [address] Donis Mancini Hemoglobin Ql (U) Negative Normal NEGATIVE [facility] Comment on above: Performed By: #### U AMIC #### [facility] [address] [place] [address] Dr. Donis Mancini Ketones Ql (U) Negative Normal NEGATIVE [facility] Comment on above: Performed By: #### U AMIC #### [facility] [address] [place] [address] Dr. Donis Mancini LEUKOCYTES Negative Normal NEGATIVE [facility] Comment on above: Performed By: #### U AMIC #### [facility] [address] [place] [address] Dr. Donis Mancini Nitrite Ql (U) Negative Normal NEGATIVE [facility] Comment on above: Performed By: #### U AMIC #### [facility] [address] [place] [address] Dr. Donis Mancini pH (U) 7.0 [pH] Normal 5-9 [facility] Comment on above: Performed By: #### U AMIC #### [facility] [address] [place] [address] Dr. Donis Mancini SPEC GRAVITY <=1.005 Abnormal 1.005-<=1.02 5 [facility] Comment on above: Performed By: #### U AMIC #### [facility] [address] [place] [address] Dr. Donis Mancini UA PROTEIN Negative Normal NEGATIVE/ TRACE The [facility] Comment on above: Performed By: #### U AMIC #### [facility] [address] [place] [address] Dr. Donis Mancini UR MICRO IND NOT INDICATED Normal [facility] Comment on above: Performed By: #### U AMIC #### [facility] [address] [address] [address] Donis Mancini Urobilinogen Qn (U) 0.2 {Sarah'U}/dL Normal 0.2 - 1. 0 The [facility] Comment on above: Performed By: #### U AMIC #### [facility] [address] [address] [address] Donis Mancini URIC ACID SERUMon 08-07-2022 Urate [Mass/Vol] 3.8 mg/dL Normal 2.6-6.0 [facility] Comment on above: Performed By: #### C MP, URIC, LDH ####[facility] [address] [address]Dr. Donis Mancini URINE T PROTEIN CREAT RATIOo n 08-07-2022 UR TOTAL PROTEIN <6.0 Normal <=12.0 [facility] Comment on above: Performed By: #### C T/NGNA #### [facility] [address] [address] [address] Donis Mancini URINE CREAT 13.45 mg/dL Critically low 20.00-300.00 [facility] Comment on above: Performed By: #### C T/NGNA #### [facility] [address] [place] [address] Dr. Donis Mancini US PREG BIOPHY W [...] Normal The [facility] CHLAMYDIA/GONOCOCCUS INESSA (SW AB/URINE/PAPon 07-31-2022 Chlamydia trachomatis, INESSA Negative Normal Negative [facility] Comment on above: Performed By: #### C T/NGNA #### [facility] [address] [address] [address] Donis Mancini Neisseria gonorrhoeae, INESSA Negative Normal Negative [facility] Comment on above: Performed By: #### C T/NGNA #### [facility] [address] [address] [address] Donis Mancini VAGINITIS/VAGINOSIS DNA PROB Domenic 07-31-2022 Simeon species Negative Normal Negative [facility] Comment on above: Performed By: #### V AGINT ####[facility] [address] [address]Dr. Donis Mancini Gardnerella vaginalis Negative Normal Negative [facility] Comment on above: Performed By: #### V AGINT ####[facility] [address] [address]Dr. Donis Mancini Trichomonas vaginalis Negative Normal Negative The [facility] Comment on above: Performed By: #### V AGINT ####[facility] [address] [address]Dr. Donis Mancini GROUP B STREP CULTUREon S. agalactiae Ag Ql (Unsp spec) Culture Observations: NEGATIVE FOR GROUP B STREPTOCOCCUS. Normal The [facility] Comment on above: Performed By: #### G BSCX #### [facility] [address] [place] [address] Dr. Donis Mancini US PREG BIOPHY W [...] Normal The [facility] US PREG GROWTHon 07-11-2022 US PREG GROWTH [...] ESTEFANY BENNETT Date: 2022-07-11 19:28 Normal The [facility]26 SARS-CoV-2 (COVID-19) RNA INESSA+probe Ql (Unsp spec) Not detected Normal NOT DETECTED The [facility] Comment on above: Result Comment: When diagnostic [...] for this test is supported by the [employer] Off[employer]arer of Health and Human Service's declaration that [...] used). Performed By: #### C T/TARAS #### [facility] [address] [address] [address] Donis Mancini GTT 3 HR PREGon 06-03-2022 Glucose [Mass/Vol] 94 mg/dL Normal 74-106 [facility] Comment on above: Performed By: #### U AMIC #### [facility] [address] [address] [address] Donis Mancini Glucose [Mass/Vol] 147 mg/dL Normal [facility] Comment on above: Performed By: #### U AMIC #### [facility] [address] [place] [address] Dr. Donis Mancini Glucose [Mass/Vol] 159 mg/dL Normal [facility] Comment on above: Performed By: #### U AMIC #### [facility] [address] [address] [address] Donis Mancini Glucose [Mass/Vol] 151 mg/dL Normal [facility] Comment on above: Performed By: #### U AMIC #### [facility] [address] [place] [address] Dr. Donis Mancini GLUCOSE - 1HRon 05-21-2022 Glucose [Mass/Vol] 141 mg/dL Critically high 74-106 [facility] Comment on above: Performed By: #### U AMIC #### [facility] [address] [address] [address] Donis Mancini HEMOGRAM AND PLATELon 2021 Hematocrit (Bld) [Volume fraction] 39.1 % Normal 36.0-48.0 [facility] Comment on above: Performed By: #### U AMIC #### [facility] [address] [place] [address] Dr. Donis Mancini Hemoglobin (Bld) [Mass/Vol] 13.1 g/dL Normal 12.0-16.0 [facility] Comment on above: Performed By: #### U AMIC #### [facility] [address] [address] [address] Donis Mancini MCH (RBC) [Entitic mass] 32.3 pg Normal 26.7-34.0 The [facility] Comment on above: Performed By: #### U AMIC #### [facility] [address] [address] [address] Donis Mancini MCHC (RBC) [Mass/Vol] 33.5 g/dL Normal 29.9-35.2 [facility] Comment on above: Performed By: #### U AMIC #### [facility] Laboratory [address] [address] [address] Donis Mancini MCV (RBC) [Entitic vol] 96.5 fL Normal 81.0-99.0 [facility] Comment on above: Performed By: #### U AMIC #### [facility] Laboratory [address] [address] [address] Donis Mancini PLT 220 103/ul Normal 150-450 [facility] Comment on above: Performed By: #### U AMIC #### [facility] Laboratory [address] [address] [address] Donis Mancini RBC 4.05 106/ul Critically low 4.20-5.40 [facility] Comment on above: Performed By: #### U AMIC #### [facility] Laboratory [address] [address] [address] Donis Mancini WBC 12.8 103/ul Critically high 4.0-11.0 [facility] Comment on above: Performed By: #### U AMIC #### [facility] Laboratory [address] [address] [address] Donis Mancini US PREG BIOPHYSICAL NO [...] Normal [facility] CULTURE URINEon 05-10-2022 CULTURE URINE Culture Observations: MODERATE GROWTH OF MIXED GENITAL RAMBO. NO POTENTIAL PATHOGENS SEEN. Normal [facility] Comment on above: Performed By: #### U RCX #### [facility] Laboratory [address] [address] [address] Donis Mancini UA RANDOM W/MICROSCOPICon BACTERIA LARGE Abnormal NONE SEEN [facility] Comment on above: Performed By: #### U AMIC ####[facility] [address] [address]Dr. Donis Mancini Bilirubin Ql (U) Negative Normal NEGATIVE [facility] Comment on above: Performed By: #### U AMIC ####[facility] [address] [address]DrGene Mancini CAST NONE SEEN Normal NONE SEEN [facility] Comment on above: Performed By: #### U AMIC ####[facility] [address] [address]Dr. Donis Mancini Clarity (U) CLEAR Normal CLEAR [facility] Comment on above: Performed By: #### U AMIC ####[facility] [address] [address]Dr. Donis Mancini Color (U) YELLOW Normal YELLOW [facility] Comment on above: Performed By: #### U AMIC ####[facility] [address] [address]Dr. Donis Mancini Crystals LM Nom (Urine sed) NONE SEEN Normal NONE SEEN [facility] Comment on above: Performed By: #### U AMIC ####[facility] [address] [address]DrGene Mancini Epithelial cells LM Ql (Urine sed) MODERATE Abnormal NONE SEEN /RARE [facility] Comment on above: Performed By: #### U AMIC ####[facility] [address] [address]Dr. Donis Mancini Glucose Ql (U) 250 mg/dl Abnormal NEGATIVE [facility] Comment on above: Performed By: #### U AMIC ####[facility] [address] [address]Dr. Donis Mancini Hemoglobin Ql (U) TRACE-INTACT Abnormal NEGATIVE [facility] Comment on above: Performed By: #### U AMIC ####[facility] [address] [place], [place] [address]Dr. Donis Mancini Ketones Ql (U) Negative Normal NEGATIVE [facility] Comment on above: Performed By: #### U AMIC ####[facility] [address] [place], [place] [address]Dr. Donis Mancini LEUKOCYTES LARGE Abnormal NEGATIVE [facility] Comment on above: Performed By: #### U AMIC ####[facility] [address] [place], [place] [address]Dr. Donis Mancini MUCOUS NONE SEEN Normal NONE SEEN [facility] Comment on above: Performed By: #### U AMIC ####[facility] [address] [place], [place] [address]Dr. Donis Mancini Nitrite Ql (U) Negative Normal NEGATIVE [facility] Comment on above: Performed By: #### U AMIC ####[facility] Mydf[address]htpx[address] [place], [place] [address]Dr. Donis Mancini pH (U) 6.0 [pH] Normal 5-9 [facility] Comment on above: Performed By: #### U AMIC ####[facility] [address] [place], [place] [address]Dr. Donis Mancini RBC 2-5 Abnormal 0-2 [facility] Comment on above: Performed By: #### U AMIC ####[facility] [address] [place], [place] [address]Dr. Donis Mancini SPEC GRAVITY <=1.005 Abnormal 1.005-<=1.02 5 [facility] Comment on above: Performed By: #### U AMIC ####[facility] [address] [place], [place] [address]Dr. Donis Mancini UA PROTEIN Negative Normal NEGATIVE/ TRACE [facility] Comment on above: Performed By: #### U AMIC ####[facility] [address] [address]Dr. Donsi Mancini Urobilinogen Qn (U) 0.2 {Sarah'U}/dL Normal 0.2 - 1. 0 [facility] Comment on above: Performed By: #### U AMIC ####[facility] [address] [address]Dr. Donis Mancini WBC 10-20 Abnormal NONE SEEN [facility] Comment on above: Performed By: #### U AMIC ####[facility] [address] [address]Dr. Donis Mancini CULTURE URINEon 04-27-2022 CULTURE URINE Culture Observations: LIGHT GROWTH OF MIXED GENITAL RAMBO. NO POTENTIAL PATHOGENS SEEN. Normal [facility] Comment on above: Performed By: #### U RCX ####[facility] Sc[address]inh[address] [place], [place] [address]Dr. Donis Mancini UA (CLEAN/CATCH) INTERNAL REVIEW AND AUDIT COMPLIANCE/MICRO I F IND.on 04-27-2022 Bilirubin Ql (U) Negative Normal NEGATIVE [facility] Comment on above: Performed By: #### U ACSWENDY ICRO ####[facility] [address] [place], [place] [address]Dr. Donis Mancini Clarity (U) CLEAR Normal CLEAR [facility] Comment on above: Performed By: #### U ACSWENDY ICRO ####[facility] [address] [place], [place] [address]Dr. Donis Mancini Color (U) LT. YELLOW Normal YELLOW [facility] Comment on above: Performed By: #### U ACSWENDY ICRO ####[facility] [address] [place], [place] [address]Dr. Donis Mancini Glucose Ql (U) Negative Normal NEGATIVE [facility] Comment on above: Performed By: #### U ACSWENDY UMICRO ####[facility] [address] [place], [place] [address]Dr. Donis Mancini Hemoglobin Ql (U) Negative Normal NEGATIVE [facility] Comment on above: Performed By: #### U ACSWENDY, UMICRO ####[facility] [address] [address]Dr. Donis Mancini Ketones Ql (U) Negative Normal NEGATIVE [facility] Comment on above: Performed By: #### U ACSWENDY, UMICRO ####[facility] [address] [address]Dr. Donis Mancini LEUKOCYTES SMALL Abnormal NEGATIVE [facility] Comment on above: Performed By: #### U ACSWENDY, UMICRO ####[facility] [address] [address]Dr. Donis Mancini Nitrite Ql (U) Negative Normal NEGATIVE [facility] Comment on above: Performed By: #### U ACSWENDY, ICRO ####[facility] [address] [address]Dr. Donis Mancini pH (U) 7.0 [pH] Normal 5-9 [facility] Comment on above: Performed By: #### U ACSWENDY, ICRO ####[facility] [address] [address]Dr. Donis Mancini SPEC GRAVITY 1.015 Normal 1.005-<=1.02 5 [facility] Comment on above: Performed By: #### U ACSWENDY, ICRO ####[facility] [address] [address]Dr. Donis Mancini UA PROTEIN Negative Normal NEGATIVE/ TRACE [facility] Comment on above: Performed By: #### U ACSWENDY, ICRO ####[facility] [address] [address]Dr. Donis Mancini UR MICRO IND INDICATED Normal [facility] Comment on above: Performed By: #### U ACSWENDY, ICRO ####[facility] [address] [address]Dr. Donis Mancini Urobilinogen Qn (U) 0.2 {Sarah'U}/dL Normal 0.2 - 1. 0 [facility] Comment on above: Performed By: #### U ACSWENDY UMICRO ####[facility] [address] [address]Dr. Donis Mancini URINE MICROSCOPIC ONLYon BACTERIA MODERATE Abnormal NONE SEEN [facility] Comment on above: Performed By: #### U ACSWENDY UMICRO ####[facility] [address] [address]Dr. Donis Mancini Bacteria identified Cx Nom (U) INDICATED Normal [facility] Comment on above: Performed By: #### U NELSON UMICRO ####[facility] [address] [address]Dr. Donis Mancini CAST NONE SEEN Normal NONE SEEN [facility] Comment on above: Performed By: #### U NELSON UMICRO ####[facility] [address] [address]Dr. Donis Mancini Crystals LM Nom (Urine sed) NONE SEEN Normal NONE SEEN [facility] Comment on above: Performed By: #### U NELSON UMICRO ####[facility] [address] [address]Dr. Donis Mancini Epithelial cells LM Ql (Urine sed) MODERATE Abnormal NONE SEEN /RARE [facility] Comment on above: Performed By: #### U NELSON UMICRO ####[facility] [address] [address]Dr. Donis Mancini MUCOUS NONE SEEN Normal NONE SEEN [facility] Comment on above: Performed By: #### U NELSON UMICRO ####[facility] [address] [address]Dr. Donis Mancini RBC NONE SEEN Abnormal 0-2 [facility] Comment on above: Performed By: #### U NELSON UMICRO ####[facility] [address] [address]Dr. Donis Mancini WBC 2-5 Abnormal NONE SEEN [facility] Comment on above: Performed By: #### U ACSWENDY UMICRO ####[facility] [address] [place], [place] [address]DrGene Mancini US KIDNEYSon 04-27-2022 US KIDNEYS EXAM: [...] by: ANDREAS AN Date: 2022-04-27 17:48 Normal [facility] CULTURE URINEon 04-16-2022 CULTURE URINE Isolate 1 [...] Normal [facility] Comment on above: Performed By: #### U RCX #### [facility] Laboratory [address] [address] [address] Donis Mancini US PREG ANATOMY SINGLEon [...] ESTEFANY BENNETT Date: 2022-04-12 22:22 Normal [facility] UA RANDOM W/MICROSCOPICon BACTERIA SMALL Abnormal NONE SEEN [facility] Comment on above: Performed By: #### U AMIC #### [facility] Laboratory [address] [address] [address] Donis Mancini Bilirubin Ql (U) Negative Normal NEGATIVE [facility] Comment on above: Performed By: #### U AMIC #### [facility] Laboratory [address] [address] [address] Donis Mancini CAST NONE SEEN Normal NONE SEEN [facility] Comment on above: Performed By: #### U AMIC #### [facility] [address] [place], [place] [address] Dr. Donis Mancini Clarity (U) CLEAR Normal CLEAR [facility] Comment on above: Performed By: #### U AMIC #### [facility] Laboratory [address] [address] [address] Donis Mancini Color (U) LT. YELLOW Normal YELLOW [facility] Comment on above: Performed By: #### U AMIC #### [facility] Laboratory [address] [address] [address] Donis Mancini Crystals LM Nom (Urine sed) NONE SEEN Normal NONE SEEN [facility] Comment on above: Performed By: #### U AMIC #### [facility] Laboratory [address] [address] [address] Donis Mancini Epithelial cells LM Ql (Urine sed) FEW Abnormal NONE SEEN /RARE [facility] Comment on above: Performed By: #### U AMIC #### [facility] Laboratory [address] [place] [address] Dr. Donis Mancini Glucose Ql (U) Negative Normal NEGATIVE [facility] Comment on above: Performed By: #### U AMIC #### [facility] Laboratory [address] [place] [address] Dr. Donis Mancini Hemoglobin Ql (U) Negative Normal NEGATIVE [facility] Comment on above: Performed By: #### U AMIC #### [facility] Laboratory [address] [address] [address] Donis Mancini Ketones Ql (U) Negative Normal NEGATIVE [facility] Comment on above: Performed By: #### U AMIC #### [facility] Laboratory [address] [address] [address] Donis Mancini LEUKOCYTES LARGE Abnormal NEGATIVE [facility] Comment on above: Performed By: #### U AMIC #### [facility] Laboratory [address] [place] [address] Dr. Donis Mancini MUCOUS NONE SEEN Normal NONE SEEN [facility] Comment on above: Performed By: #### U AMIC #### [facility] Laboratory [address] [address] [address] Donis Mancini Nitrite Ql (U) Negative Normal NEGATIVE [facility] Comment on above: Performed By: #### U AMIC #### [facility] Laboratory [address] [place] [address] Dr. Donis Mancini pH (U) 5.5 [pH] Normal 5-9 [facility] Comment on above: Performed By: #### U AMIC #### [facility] Laboratory [address] [address] [address] Donis Mancini RBC 0-2 Normal 0-2 [facility] Comment on above: Performed By: #### U AMIC #### [facility] Laboratory [address] [address] [address] Donis Mancini SPEC GRAVITY <=1.005 Abnormal 1.005-<=1.02 5 [facility] Comment on above: Performed By: #### U AMIC #### [facility] Laboratory [address] [address] [address] Donis Mancini UA PROTEIN Negative Normal NEGATIVE/ TRACE [facility] Comment on above: Performed By: #### U AMIC #### [facility] Laboratory [address] [address] [address] Donis Mancini Urobilinogen Qn (U) 0.2 {Sarah'U}/dL Normal 0.2 - 1. 0 [facility] Comment on above: Performed By: #### U AMIC #### [facility] [address] [address] [address] Donis Mancini WBC 5-10 Abnormal NONE SEEN [facility] Comment on above: Performed By: #### U AMIC #### [facility] Laboratory [address] [address] [address] Donis Mancini HEP B SURFACE ANTIGEN SCREEN on 01-23-2022 HBsAg Screen Negative Normal Negative [facility] Comment on above: Performed By: #### U AMIC #### [facility] Laboratory [address] [address] [address] Donis Mancini HEPATITIS C VIRUS AB W/ REFL EX QUANTon 01-23-2022 HCV AB 0.1 s/co ratio Normal 0.0-0.9 [facility] Comment on above: Performed By: #### H CVPCRR ####[facility] [address] [address]Dr. Donis Mancini Interpretation: Comment Normal [facility] Comment on above: Result Comment: Nega tive Not infected with HCV, unless recent infection is suspected or other evidence exists to indicate HCV infection. Performed By: #### H CVPCRR ####[facility] [address] [address]Dr. Donis Mancini HIV 1 AND 2 WITH REFLEXon HIV Screen 4th Generation wRfx Non-Reactive Normal Non Reactive [facility] Comment on above: Result Comment: HIV Negative HIV-1/HIV-2 antibodies and HIV-1 p24 antigen were NOT detected. There is no laboratory evidence of HIV infection. Performed By: #### H IV12 ####[facility] [address] [address]Dr. Donis Mancini RPR QUANTon 01-23-2022 Rapid Plasma Reagin, Quant Non-Reactive Normal NonRea<1:1 [facility] Comment on above: Result Comment: Plea se Note: This test does not meet current guidelines for screening and diagnosis of syphilis. This test is intended for following treatment response in patients being treated for syphilis infection. To screen for syphilis infection, a reflex cascade that includes both RPR and a treponema-specific assay should be utilized, such as Treponema pallidum (Syphilis) Screening [place] (096243) or Rapid Plasma Reagin (RPR) Test With Reflex to Quantitative RPR and Confirmatory Treponema pallidum Antibodies (269596). Performed By: #### R PRQ ####[facility] [address] [address]DrGene Mancini RUBELLA AB IGGon 01-23-2022 Rubella Antibodies, IgG 1.60 index Normal Immune >0.99 [facility] Comment on above: Result Comment: Non- immune <0.90 Equivocal 0.90 - 0.99 Immune >0.99 Performed By: #### U AMIC #### [facility] Laboratory [address] [place] [address] Dr. Donis Mancini CBC AUTO DIFFon 01-22-2022 BASO # 0.1 103/ul Normal 0.0-0.1 [facility] Comment on above: Performed By: #### U AMIC #### [facility] Laboratory [address] [place], [place] [address] Dr. Donis Mancini Basophils/100 WBC (Bld) 0.5 % Normal 0.2-2.0 [facility] Comment on above: Performed By: #### U AMIC #### [facility] Laboratory [address] [place] [address] Dr. Donis Mancini EO # 0.6 103/ul Normal 0.0-0.7 [facility] Comment on above: Performed By: #### U AMIC #### [facility] Laboratory [address] [place] [address] Dr. Donis Mancini Eosinophils/100 WBC (Bld) 5.1 % Normal 0.9-7.0 [facility] Comment on above: Performed By: #### U AMIC #### [facility] Laboratory [address] [place] [address] Dr. Donis Mancini Erythrocyte distribution width (RBC) [Ratio] 12.0 % Normal 11.0-15.0 [facility] Comment on above: Performed By: #### U AMIC #### [facility] Laboratory [address] [place] [address] Dr. Donis Mancini Hematocrit (Bld) [Volume fraction] 45.8 % Normal 36.0-48.0 [facility] Comment on above: Performed By: #### U AMIC #### [facility] Laboratory [address] [place] [address] Dr. Donis Mancini Hemoglobin (Bld) [Mass/Vol] 15.3 g/dL Normal 12.0-16.0 [facility] Comment on above: Performed By: #### U AMIC #### [facility] Laboratory [address] [place] [address] Dr. Donis Mancini IG # 0.03 10e3/ul Normal 0.00-0.03 [facility] Comment on above: Performed By: #### U AMIC #### [facility] Laboratory [address] [place] [address] Dr. Donis Mancini IG % 0.3 % Normal 0.0-0.5 [facility] Comment on above: Performed By: #### U AMIC #### [facility] Laboratory [address] [address] [address] Donis Mancini LYMPH # 1.7 103/ul Normal 1.2-3.8 [facility] Comment on above: Performed By: #### U AMIC #### [facility] Laboratory [address] [address] [address] Donis Mancini Lymphocytes/100 WBC (Bld) 15.9 % Critically low 20.5-60.0 [facility] Comment on above: Performed By: #### U AMIC #### [facility] Laboratory [address] [address] [address] Donis Mancini MANUAL DIFF REQ NO Normal [facility] Comment on above: Performed By: #### U AMIC #### [facility] Laboratory [address] [address] [address] Donis Mancini MCH (RBC) [Entitic mass] 31.5 pg Normal 26.7-34.0 [facility] Comment on above: Performed By: #### U AMIC #### [facility] Laboratory [address] [place] [address] Dr. Donis Mancini MCHC (RBC) [Mass/Vol] 33.4 g/dL Normal 29.9-35.2 [facility] Comment on above: Performed By: #### U AMIC #### [facility] Laboratory [address] [place] [address] Dr. Donis Mancini MCV (RBC) [Entitic vol] 94.2 fL Normal 81.0-99.0 [facility] Comment on above: Performed By: #### U AMIC #### [facility] Laboratory [address] [place] [address] Dr. Donis Mancini MONO # 0.6 103/ul Normal 0.3-0.8 [facility] Comment on above: Performed By: #### U AMIC #### [facility] Laboratory [address] [address] [address] Donis Mancini Monocytes/100 WBC (Bld) 5.8 % Normal 1.7-12.0 [facility] Comment on above: Performed By: #### U AMIC #### [facility] Laboratory [address] [address] [address] Donis Mancini NEUT # 7.8 103/ul Critically high 1.4-6.5 [facility] Comment on above: Performed By: #### U AMIC #### [facility] Laboratory [address] [address] [address] Donis Mancini Neutrophils/100 WBC (Bld) 72.4 % Normal 43.0-75.0 [facility] Comment on above: Performed By: #### U AMIC #### [facility] Laboratory [address] [address] [address] Donis Mancini Platelet mean volume (Bld) [Entitic vol] 9.9 fL Normal 9.5-13.5 [facility] Comment on above: Performed By: #### U AMIC #### [facility] Laboratory [address] [address] [address] Donis Mancini PLT 281 103/ul Normal 150-450 [facility] Comment on above: Performed By: #### U AMIC #### [facility] Laboratory [address] [place] [address] Dr. Donis Mancini RBC 4.86 106/ul Normal 4.20-5.40 [facility] Comment on above: Performed By: #### U AMIC #### [facility] Laboratory [address] [address] [address] Donis Mancini WBC 10.8 103/ul Normal 4.0-11.0 [facility] Comment on above: Performed By: #### U AMIC #### [facility] Laboratory [address] [address] [address] Donis Mancini CULTURE URINEon 01-22-2022 CULTURE URINE Culture Observations: LIGHT GROWTH OF MIXED GENITAL RAMBO. NO POTENTIAL PATHOGENS SEEN. Normal [facility] Comment on above: Performed By: #### U RCX #### [facility] Laboratory [address] [address] [address] Donis Mancini GLYCOHEMOGLOBIN A1Con 2021 ADA RECOMMENDATION SEE BELOW Normal The [facility] Comment on above: Result Comment: ADA RECOMMENDED LIMIT 4.0 - 6.0 ADA THERAPEUTIC TARGET < 7.0 ACTION SUGGESTED > 7.0 Performed By: #### A 1C ####[facility] [id number] [place], [place] [address]Cj. Donis Mancini Glucose [Mass/Vol] 100 mg/dL Normal [facility] Comment on above: Performed By: #### A 1C ####[facility] [id number] [place], [place] [address]Eg. Donis Mancini HbA1c (Bld) [Mass fraction] 5.1 % Normal 4.5-6.2 [facility] Comment on above: Performed By: #### A 1C ####[facility] [id number] [id number]. Donis Mancini SEAN BOX TEST PT SEND OUTo n 01-22-2022 SENT TO REF LAB 01/22/2022 Normal [facility] Comment on above: Performed By: #### N BOX ####[facility] [id number] [id number]. Donis Mancini TYPE AND SCREENon 01-22-2022 TYPE AND SCREEN Negative Normal [facility] Comment on above: Performed By: #### T NS #### [facility] Laboratory [address] [place], [place] [address] Dr. Donis Mancini US PREG TVon 01-17-2022 [...] Normal [facility] Provider Letteron 04-06-2021 Provider Letter April 06, 2021 Dear Vimal, We have been trying to reach you with no success. It is important that you return our call regarding your appointment upon receiving this letter. Also, at the time of your call, please provide us with your current information. Thank you for your prompt attention to this matter. Sincerely, [employer] [address] Normal [facility] Ambulatory Clinical Summaryo n 03-10-2021 Ambulatory Clinical Summary {[id number]}CD:[id number] Normal [facility] Ambulatory Clinical Summaryo n 03-05-2021 Ambulatory Clinical Summary {[id number]}CD:[id number] Normal [facility] Gynecology Phone Visit- Tele healthon [...] communication with the patient located at [address] [place] [phone], with no one else. 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 CODING DATE: 12/18/2020 FINAL [facility] DSC STATUS: Home (Routine DC) PAYOR: Miltona ADMIT DX: REASON FOR VISIT DX: U07.1 [...] Galvan CphT Date Saved: 12/18/2020 12:44 pm [facility] Physician Orderon 12-16-2020 Physician Order [id number] #[id number]:[id number] [facility] Rapid COVID Antigen ([facility])on 12-16-2020 Rapid COV Int NEG Ctl Pass Normal [facility] Comment on above: Performed By: #### 2 [id number] #### [facility] [address] [place] [address] Rapid COV Int POS Ctl Pass Normal Fis her [facility] Comment on above: Performed By: #### 2 [id number] #### [facility] [address] [place] [address] SARS-CoV-2 (COVID-19) RNA INESSA+probe Ql (Unsp spec) Detected Abnormal Not Detected [facility] Comment on above: Result Comment: Left a message for callback. 12/16/2020 11:42:47 EDT Results faxed to infection control. The [employer] Veritor? System for Rapid Detection of SARS-CoV-2 [...] or revoked sooner. Performed By: #### 2 [id number] #### [facility] [address] [place] [address] Employed in Healthcare Unknown Normal [facility] Comment on above: Performed By: #### 2 [id number] #### [facility] [address] [facility] [place] [address] First Test Unknown Normal [facility] Comment on above: Performed By: #### 2 [id number] #### [facility] [address] [place] [address] Hospitalized? NO Normal [facility] Comment on above: Performed By: #### 2 [id number] #### [facility] [address] [place] [address] ICU NO Normal [facility] Comment on above: Performed By: #### 2 [id number] #### [facility] [address] [facility] [place] [address] ? Unknown Normal [facility] Comment on above: Performed By: #### 2 [id number] #### [facility] [address] [place] [address] Resides in a Congregate Care Setting Unknown Normal [facility] Comment on above: Performed By: #### 2 [id number] #### [facility] [address] [place] [address] Symptomatic as defined by [facility] YES Normal [facility] Comment on above: Performed By: #### 2 [id number] #### [facility] [address] [place] [address] Ambulatory Clinical Summaryo n 11-25-2020 Ambulatory Clinical Summary {[id number]}CD:[id number] Normal [facility] Vital Signs Date Time Vital Sign Value Performing Clinician Facility 06-26-2025 09:32-0400 Body mass index (BMI) [Ratio] 32.06 kg/m2 Megan Aranda PROFILING MACHINE SETUP OPERATOR Work Phone: [facility] 06-26-2025 09:32-0400 Body weight 82.1 kg Megan Aranda PROFILING MACHINE SETUP OPERATOR Work Phone: [facility] 06-26-2025 09:32-0400 Diastolic blood pressure 84 mm[Hg] Megan Whitleyly PROFILING MACHINE SETUP OPERATOR Work Phone: [facility] 06-26-2025 09:32-0400 Systolic blood pressure 138 mm[Hg] Megan Whitleyly PROFILING MACHINE SETUP OPERATOR Work Phone: [facility] 06-19-2025 15:04-0400 Body mass index (BMI) [Ratio] 31.89 kg/m2 Jose Michael DO Work Phone: [facility] 06-19-2025 15:04-0400 Body weight 81.65 kg Jose Michael DO Work Phone: [facility] 06-19-2025 15:04-0400 Diastolic blood pressure 86 mm[Hg] Jose Michael DO Work Phone: [facility] 06-19-2025 15:04-0400 Systolic blood pressure 142 mm[Hg] Jose Michael DO Work Phone: [facility] 06-12-2025 15:22-0400 Body mass index (BMI) [Ratio] 31.96 kg/m2 Rossana BISWAS Work Phone: [facility] 06-12-2025 15:22-0400 Body weight 81.83 kg Rossana BISWAS Work Phone: [facility] 06-12-2025 15:22-0400 Diastolic blood pressure 90 mm[Hg] Rossana BISWAS Work Phone: [facility] 06-12-2025 15:22-0400 Systolic blood pressure 144 mm[Hg] Rossana Ramos PA Work Phone: [facility] 05-28-2025 10:48-0400 Body mass index (BMI) [Ratio] 32.06 kg/m2 Jose Michael DO Work Phone: [facility] 05-28-2025 10:48-0400 Body weight 82.1 kg Jose Michael DO Work Phone: [facility] 05-28-2025 10:48-0400 Diastolic blood pressure 80 mm[Hg] Jose Michael DO Work Phone: [facility] 05-28-2025 10:48-0400 Systolic blood pressure 136 mm[Hg] Jose Micahel DO Work Phone: [facility] [...] 05-22-2025 15:02-0400 Systolic blood pressure 138 mm[Hg] Ojse Michael DO Work Phone: [facility] [...] 79.83 kg Marjorie Rico RN Work Phone: [facility] 04-30-2025 11:52-0400 Body mass index (BMI) [Ratio] 31 kg/m2 Rossana Rachel PA Work Phone: [facility] 04-30-2025 11:52-0400 Body weight 79.38 kg Rossana Morse PA Work Phone: [facility] 04-30-2025 11:52-0400 Diastolic blood pressure 94 mm[Hg] Rossana Rachel PA Work Phone: [facility] 04-30-2025 11:52-0400 Systolic blood pressure 140 mm[Hg] Rossana Rachel PA Work Phone: [facility] 04-11-2025 15:38-0400 Body mass index (BMI) [Ratio] 30.2 kg/m2 Rossana Morse PA Work Phone: [facility] 04-11-2025 15:38-0400 Body weight 77.34 kg Rosasna Morse PA Work Phone: [facility] 04-11-2025 15:38-0400 Diastolic blood pressure 100 mm[Hg] Rossana Morse PA Work Phone: [facility] [...] mass index (BMI) [Ratio] 28.83 kg/m2 Rossana Morse PA Work Phone: [facility] 02-20-2025 16:08-0400 Body weight 73.82 kg Rossana Rachel PA Work Phone: [facility] 02-20-2025 16:08-0400 Diastolic blood pressure 82 mm[Hg] Rossana Rachel PA Work Phone: [facility] 02-20-2025 16:08-0400 Systolic blood pressure 110 mm[Hg] Rossana Rachel PA Work Phone: [facility] [...] 08-20-2024 10:55-0500 Body weight 66.41 kg Rossana Morse PA Work Phone: [facility] 08-20-2024 10:55-0500 Diastolic blood pressure 70 mm[Hg] Rossana Rachel PA Work Phone: [facility] 08-20-2024 10:55-0500 Systolic blood pressure 120 mm[Hg] Rossana Morse PA Work Phone: [facility] [...] Body mass index (BMI) [Ratio] 24.58 kg/m2 [facility] Nurse [facility] 06-29-2024 09:12-0400 Body weight 62.94 kg [facility] Nurse [facility] 06-29-2024 09:12-0400 Diastolic blood pressure 72 mm[Hg] [facility] Nurse [facility] 06-29-2024 09:12-0400 Systolic blood pressure 122 mm[Hg] [facility] Nurse [facility] 12-26-2022 13:45-0400 Body height 160.02 cm Jennifer Huston Other [employer] [facility] [employer] Other 12-26-2022 13:45-0400 Body mass index (BMI) [Ratio] 27.45 kg/m2 Jennifer Huston Other [employer] Other 12-26-2022 13:45-0400 Body temperature 97 [degF] Jennifer Huston Other [employer] Other 12-26-2022 13:45-0400 Body weight 70.31 kg Jennifer Huston Other [employer] Other 12-26-2022 13:45-0400 Diastolic blood pressure 89 mm[Hg] Jennifer Huston Other [employer] Other 12-26-2022 13:45-0400 Respiratory rate 18 /min Jennifer Huston Other [employer] Other 12-26-2022 13:45-0400 SaO2% (BldA) [Mass fraction] 100 % Jennifer Huston Other [employer] Other 12-26-2022 13:45-0400 Systolic blood pressure 135 mm[Hg] Jennifer Huston Other [employer] Other Encounters Encounter Date Encounter Type Care Provider Facility Start: 06-26-2025 End: 06-26-2025 Bamboo flowsheet Megan Aranda NP Work Phone: [facility] Start: 06-26-2025 End: 06-26-2025 Bamboo flowsheet Megan Aranda NP Work Phone: [facility] Start: 06-26-2025 End: 06-26-2025 flow sheet Megan Aranda NP Work Phone: [facility] Comment on above: Third trimester preg alysa ([facility]); 36 weeks gestation of ([facility]); Diet controlled gestational diabetes mellitus (GDM), antepartum ([facility]); induced hypertension, antepartum ([facility]) Start: 06-22-2025 End: 06-22-2025 Clinisync Result Encounter Rossana BISWAS Work Phone: [facility] External Department Unsolicited Start: 06-22-2025 End: 06-22-2025 Clinisync Result Encounter Rossana BISWAS Work Phone: [facility] External Department Unsolicited Start: 06-20-2025 End: 06-20-2025 Orders Only Marii Yoo RN [facility] Comment on above: Poor growth af fecting management of mother in third trimester, single or unspecified fetus (Primary Dx) Start: 06-19-2025 End: 06-19-2025 flow sheet Jose Michael DO Work Phone: [facility] Comment on above: Third trimester preg alysa ([facility]); 35 weeks gestation of ([facility]); Diet controlled gestational diabetes mellitus (GDM), antepartum ([facility]); induced hypertension, antepartum ([facility]) Start: 06-19-2025 End: 06-19-2025 ambulatory JOSE MICHAEL Not Available Start: 06-18-2025 End: 06-18-2025 ambulatory [facility] Start: 06-15-2025 End: 06-15-2025 Clinisync Result Encounter Rossana BISWAS Work Phone: [facility] External Department Unsolicited Start: 06-15-2025 End: 06-15-2025 Clinisync Result Encounter Rossana BISWAS Work Phone: [facility] External Department Unsolicited Start: 06-12-2025 End: 06-12-2025 ambulatory ROSSANA RAMOS Not Available Start: 06-12-2025 End: 06-12-2025 flow sheet Rossana BISWAS Work Phone: [facility] Comment on above: Third trimester preg alysa ([facility]); 34 weeks gestation of ([facility]) Start: 06-12-2025 End: 06-12-2025 Bamboo flowsheet Rossana BISWAS Work Phone: [facility] Start: 06-12-2025 End: 06-12-2025 Bamboo flowsheet Rossana BISWAS Work Phone: [facility] [place] [facility] Start: 06-11-2025 End: 06-11-2025 ambulatory [facility] Start: 06-08-2025 End: 06-08-2025 Clinisync Result Encounter Rossana BISWAS Work Phone: [facility] External Department Unsolicited Start: 06-08-2025 End: 06-08-2025 Clinisync Result Encounter Rossana BISWAS Work Phone: [facility] External Department Unsolicited Start: 06-05-2025 End: 06-05-2025 Telephone encounter Xenia London RD Work Phone: [facility] Start: 06-04-2025 End: 06-04-2025 Office consultation new/estab patient 60 min Manas Martin MD Work Phone: [facility] Comment on above: Poor growth af fecting management of mother in third trimester, single or unspecified fetus (Primary Dx) Start: 06-04-2025 End: 06-04-2025 Orders Only Marii Yoo RN [facility] Comment on above: Poor growth af fecting [...] abstracting Scanning Provider External [facility] Start: 05-28-2025 End: 05-28-2025 Bamboo flowsheet Jose Michael DO Work Phone: [facility] Start: 05-28-2025 End: 05-28-2025 Bamboo flowsheet Jose Michael DO Work Phone: [facility] Start: 05-28-2025 End: 05-28-2025 Telephone encounter Chante TEJEDA Work Phone: [facility] Start: 05-28-2025 End: 05-28-2025 ambulatory JOSE MICHAEL Not Available Start: 05-28-2025 End: 05-28-2025 flow sheet Jose Michael DO Work Phone: [facility] Comment on above: Third trimester preg alysa ([facility]); 32 weeks gestation of ([facility]); Gestational diabetes mellitus (GDM), antepartum, gestational diabetes method of control unspecified ([facility]); induced hypertension, antepartum ([facility]) Start: 05-25-2025 End: 05-25-2025 Clinisync Result Encounter Rossana BISWAS Work Phone: [facility] External Department Unsolicited Start: 05-25-2025 End: 05-25-2025 Clinisync Result Encounter Rossana BISWAS Work Phone: [facility] External Department Unsolicited Start: 05-22-2025 End: 05-22-2025 ambulatory JOSE MICHAEL Not Available Start: 05-22-2025 End: 05-22-2025 flow sheet Jose Michael DO Work Phone: [facility] Comment on above: Third trimester preg alysa ([facility]); 31 weeks gestation of ([facility]) Start: 05-22-2025 End: 05-22-2025 Bamboo flowsheet Jose Michael DO Work Phone: [facility] Start: 05-22-2025 End: 05-22-2025 Bamboo flowsheet Jose Michael DO Work Phone: [facility] Start: 05-21-2025 End: 05-21-2025 Telephone encounter Chante TEJEDA Work Phone: [facility] Start: 05-20-2025 End: 05-20-2025 Clinisync Result Encounter [...] Comment on above: Third trimester preg alysa ([facility]); 30 weeks gestation of ([facility]); induced hypertension, antepartum ([facility]) Start: 05-14-2025 End: 05-14-2025 Bamboo flowsheet Jose Michael DO Work Phone: [facility] Start: 05-14-2025 End: 05-14-2025 Bamboo flowsheet Jose Michael DO Work Phone: [facility] Start: 05-13-2025 End: 05-13-2025 ambulatory Marjorie Rico RN Work Phone: [facility] Comment on above: Gestational diabetes mellitus (GDM) in third trimester, gestational diabetes method of control unspecified Start: 05-11-2025 End: 05-11-2025 Clinisync Result Encounter Rossana BISWAS Work Phone: [facility] External Department Unsolicited Start: 05-11-2025 End: 05-11-2025 Clinisync Result Encounter Rossana BISWAS Work Phone: [facility] External Department Unsolicited Start: 05-10-2025 End: 05-10-2025 Chart abstracting Scanning Provider External [facility] Start: 05-06-2025 End: 05-06-2025 Clinisync Result Encounter Rossana BISWAS Work Phone: [facility] External Department Unsolicited Start: 05-06-2025 End: 05-06-2025 Clinisync Result Encounter Rossana BISWAS Work Phone: [facility] External Department Unsolicited Start: 05-04-2025 End: 05-04-2025 Clinisync Result Encounter Rossana aRmos PA Work Phone: [facility] External Department Unsolicited Start: 05-04-2025 End: 05-04-2025 Clinisync Result Encounter Rossana BISWAS Work Phone: [facility] External Department Unsolicited Start: 05-04-2025 End: 05-08-2025 Telephone encounter Jose Rodriguez Work Phone: [facility] Start: 04-30-2025 End: 04-30-2025 Bamboo flowsheet Rossana Ramos PA Work Phone: [facility] Start: 04-30-2025 End: 04-30-2025 Bamboo flowsheet Rossana Ramos PA Work Phone: [facility] Start: 04-30-2025 End: 04-30-2025 ambulatory ROSSANA RAMOS Not Available Start: 04-30-2025 End: 04-30-2025 Patient encounter status Rossana Ramos PA Work Phone: [facility] Work Phone: Start: 04-30-2025 End: 04-30-2025 flow sheet Rossana Ramos PA Work Phone: [facility] Comment [...] 04-25-2025 End: 04-25-2025 flow sheet Rossana Rachel PA Work Phone: [facility] Comment on above: Second trimester pre gnancy ([facility]); 27 weeks gestation of ([facility]); induced hypertension, antepartum ([facility]) Start: 04-25-2025 End: 04-25-2025 ambulatory ROSSANA RAMOS Not Available Start: 04-25-2025 End: 04-25-2025 Bamboo flowsheet Rossana BISWAS Work Phone: [facility] Start: 04-25-2025 End: 04-25-2025 Bamboo flowsheet Rossana BISWAS Work Phone: [facility] Start: 04-11-2025 End: 04-11-2025 ambulatory ROSSANA RAMOS Not Available Start: 04-11-2025 End: 04-11-2025 flow sheet Rossana Rachel PA Work Phone: [facility] Comment on above: Second trimester pre gnancy ([facility]); 25 weeks gestation of ([facility]); Diabetes mellitus screening; Elevated BP [...] Comment on above: Second trimester pre gnancy ([facility]); 21 weeks gestation of ([facility]) Start: 03-08-2025 End: 03-08-2025 Clinisync Result Encounter Jose Michael DO Work Phone: [facility] External Department Unsolicited Start: 03-08-2025 End: 03-08-2025 Clinisync Result Encounter Jose Michael DO Work Phone: [facility] External Department Unsolicited Start: 02-20-2025 End: 02-20-2025 Patient encounter procedure Rossana BISWAS Work Phone: [facility] Start: 02-20-2025 End: 02-20-2025 flow [...] Start: 08-10-2024 End: 08-10-2024 ambulatory PHYSICIAN [facility] Work Phone: Start: 08-10-2024 End: 08-10-2024 Departed Referred PHYSICIAN NO [facility] Start: 08-06-2024 End: 08-06-2024 Bamboo flowsheet Jose Michael DO Work Phone: [facility] Start: 08-06-2024 End: 08-06-2024 Bamboo flowsheet Jose Michael DO Work Phone: [facility] Start: 08-06-2024 End: 08-06-2024 ambulatory JOSE DCO Not Available Start: 08-06-2024 End: 08-06-2024 Office [...] 12-26-2022 End: 12-26-2022 ambulatory Jennifer Huston Other [facility] [employer] Other Start: 12-26-2022 End: 12-26-2022 Patient encounter procedure PROFILING MACHINE SETUP OPERATOR-C Jennifer Huston Work Phone: [facility] Work Phone: [...] End: 05-10-[address] JOSE RODRIGUEZ . Facility: Start: 05-10-2022 End: 05-10-[address] DOCTOR ATWOOD Facility:[facility] Start: 05-03-[address] JOSE RODRIGUEZ . Facili ty:[facility] Start: 04-27-2022 End: 04-27-[address] JOSE RODRIGUEZ . Facility: Start: 04-12-2022 End: 04-12-[address] JOSE RODRIGUEZ . Facility: Start: 04-12-2022 End: 04-13-[address] JOSE RODRIGUEZ . Facility: Start: 03-26-2022 End: 03-27-[address] JOSE RODRIGUEZ . Facility: Start: 01-22-2022 End: 01-23-[address] JOSE RODRIGUEZ . Facility: Start: 01-14-2022 End: 01-15-[address] JOSE RODRIGUEZ . Facility: Procedures Date Procedure Procedure Detail Performing Clinician Start: 06-26-2025 Urnls dip stick/tabl et rgnt non-auto w/o micrscp Megan Aranda PROFILING MACHINE SETUP OPERATOR Work Phone: Start: 06-22-2025 US OB BPP W NON-STRESS Rossana BISWAS Work Phone: Start: 06-19-2025 Urnls dip stick/tabl et rgnt [...] Start: 12-26-2022 Plain X-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 hand PROFILING MACHINE SETUP OPERATOR-C Jennifer Huston Work Phone: Start: 11-02-2022 [...] malign ant neoplasm [facility] cervix [facility] Start: 06-20-2026 End: 06-20-2026 US MFM with or without consult US MFM with or without consult Imaging Routine Poor growth affecting management of mother in third trimester, single or unspecified fetus Expected: 06/20/2026 (Approximate), Expires: 06/20/2026 [employer] Work Phone: Comment on above: Expected: 06/20/2026 (Approximate), Expires: 06/20/2026 Start: 06-04-2026 End: 06-04-2026 US MFM with or without consult US MFM with or without consult Imaging Routine Poor growth affecting management of mother in third trimester, single or unspecified fetus Gestational diabetes mellitus (GDM) in third trimester, gestational diabetes method of control unspecified Expected: 06/04/2026 (Approximate), Expires: 06/04/2026 [employer] Work Phone: Comment on above: Expected: 06/04/2026 (Approximate), Expires: 06/04/2026 Start: 07-04-2025 End: 07-04-2025 Patient encounter procedure 07/04/2025 9:40 AM EDT Routine [facility] [address] [facility] [address] [place] [id number] Megan Aranda, PROFILING MACHINE SETUP OPERATOR [address] [place] [address] [facility] Start: 07-02-2025 End: 07-02-2025 Patient encounter procedure 07/02/2025 3:30 PM EDT Appointment [facility] [address] [place] [address] [facility] Start: 06-26-2025 End: 06-26-2026 CULTURE, GROUP B STREP WITH SUSCEPTIBLITY CULTURE, GROUP B STREP WITH SUSCEPTIBLITY Lab Routine Third trimester ([facility]) Expected: 06/26/2025, Expires: 06/26/2026 [facility] Work Phone: Comment on above: Expected: 06/26/2025 , Expires: 06/26/2026 Start: 06-26-2025 End: 06-26-2025 Patient encounter procedure [facility] Comment on above: Arrived Start: 06-24-2025 End: 06-24-2025 Patient encounter procedure 06/24/2025 2:15 PM EDT Appointment [facility] [address] [place] [phone] [facility] [place] Start: 06-19-2025 End: 06-19-2025 Patient encounter procedure 06/19/2025 2:30 PM EDT Routine [facility] [address] [facility] [place] [phone] Jose Rodriguez DO [address] [place], [place] [phone] [facility] [place] [facility] Start: 06-18-2025 End: 06-18-2025 Patient encounter procedure 06/18/2025 3:30 PM EDT Appointment [facility] [address] [place] [phone] [facility] Start: 06-12-2025 End: 06-12-2025 Patient encounter procedure 06/12/2025 3:00 PM EDT Routine [facility] [place] OBCHIC[facility] [address] [place] [address] Rossana Ramos PA [address] [place] [address] [facility] [place] [facility] Start: 06-11-2025 End: 06-11-2025 Patient encounter procedure 06/11/2025 8:00 AM EDT Appointment [facility] [address] [facility] [place] [phone] [facility] Start: 06-04-2025 End: 06-04-2025 Patient encounter procedure 06/04/2025 1:00 PM EDT Appointment [facility] [address] [place] [address] Jose Rodriguez R, DO [address] [place] [address] [facility] Start: 06-04-2025 Subsequent hospital visit by physician 06/04/2025 1:00 PM EDT Hospital Encounter [facility] [address] [place] [address] Jose Rodriguez, DO [address] [place] [address] [facility] Start: 05-28-2025 End: 05-28-2025 Patient encounter procedure 05/28/2025 10:30 AM EDT Routine [facility] [place] [facility] [address] [facility] [place] [address] Jose Rodriguez, DO [address] [place] [address] [facility] [place] [facility] Start: 05-27-2025 Influenza vaccination [facility] Start: 05-22-2025 End: 05-22-2025 Patient encounter procedure 05/22/2025 2:40 PM EDT Routine [facility] [address] [facility] [place] [address] Jose Rodriguez, DO [address] [place] [address] [facility] [place] [facility] Start: 05-14-2025 End: 05-14-2025 Patient encounter procedure 05/14/2025 2:40 PM EDT Routine [facility] [address] [facility] [place] [address] Jose Rodriguez, DO [address] [facility] [address] [place] [address] [facility] Start: 05-14-2025 End: 05-14-2026 Alanine aminotransferase [Enzymatic activity/volume] in Serum or Plasma ALT Lab Routine induced hypertension, antepartum ([facility]) Expected: 05/14/2025 (Approximate), Expires: 05/14/2026 [facility] [...] PM EDT Support Visit [facility] at [facility] [address] [place] [address] Marjorie Rico RN [address] [facility], [address] [place] [phone] Xenia London, ALEC [address], [address] [place] [address] [facility] Start: 04-30-2025 End: 10-31-2025 US biophysical profile w non stress test US biophysical profile w non stress test Imaging Routine -induced hypertension in third trimester ([facility]) Gestational diabetes mellitus (GDM) in third trimester, gestational diabetes method of control unspecified ([facility]) Expected: 04/30/2025 (Approximate), Expires: 10/31/2025 [facility] Work Phone: Comment on above: Expected: 04/30/2025 (Approximate), Expires: 10/31/2025 Start: 04-30-2025 End: 08-30-2025 US for US OB follow up transabdominal approach Imaging Routine -induced hypertension in third trimester ([facility]) Gestational diabetes mellitus (GDM) in third trimester, gestational diabetes method of control unspecified ([facility]) Expected: 04/30/2025, Expires: 08/30/2025 [facility] Comment on above: Expected: 04/30/2025 , Expires: 08/30/2025 Start: 04-30-2025 End: 04-30-2025 Patient encounter procedure 04/30/2025 10:50 AM EDT Routine [facility] [place] [facility] [address] [facility] [place] [address] Rossana Ramos PA [address] [facility] [place] [address] [facility] [place] [facility] Start: 04-25-2025 End: 04-25-2025 Patient encounter procedure [facility] Comment on above: Arrived [...] hypertension, antepartum ([facility]) Expected: 04/25/2025, Expires: 04/25/2026 [facility] Comment on above: Expected: 04/25/2025 , Expires: 04/25/2026 Start: 04-11-2025 End: 04-11-2025 Patient encounter procedure 04/11/2025 3:30 PM EDT Routine [facility] [address] [facility] [place] [phone] Rossana Ramos PA [address] [facility] [place] [address] [facility] Start: 04-11-2025 End: 04-11-2026 [...] AM EDT Routine [facility] [address] [facility] [place] [address] Jose Rodriguez DO [address] [facility] [address] [place] [address] [facility] Start: 02-20-2025 End: 02-20-2025 [...] Initial [facility] [address] [place] [phone] [facility] Start: 12-14-2024 End: 12-14-2024 Professional / ancillary services management 12/14/2024 8:30 AM EDT Ancillary Procedure [facility] [address] [place] [address] [facility] Start: 08-20-2024 End: 08-20-2024 Patient encounter procedure 08/20/2024 10:20 AM EST Office Visit [facility] [address] [place] [address] Rossana Ramos PA [address] [place] [address] [facility] Start: 08-06-2024 End: 08-06-2024 Patient encounter procedure 08/06/2024 9:10 AM EST Routine [facility] [address] [place] [address] Jose Rodriguez DO [address] [place] [address] [facility] Start: 06-29-2024 End: 06-29-2025 [...] (Approximate), Expires: 06/29/2025 [facility] Work Phone: Comment on above: [...] Td Vaccines (7 - Td or Tdap) [facility] Start: 2020 DTaP,Tdap and Td Vac cines (1 - Tdap) DTaP,Tdap and Td Vaccines (1 - Tdap) [facility] Start: 2019 Adult BMI Screening Adult BMI Screen ing [facility] Start: 2013 Depression Screening Depression Scre ening [facility] Start: 2013 Tobacco Screening Tobacco Screening [facility] Start: 2001 Screening for Chlamy jd trachomatis Chlamydia Screening [facility] Bacteria identified in Urine by Culture [...] and Cytology Routine STD exposure Ordered: 02/20/2025 [facility] Work Phone: Comment on above: Ordered: 02/20/2025 Immunizations Immunization Date Immunization Notes Care Provider Ryne abrams [birth year]2003 influenza virus vacc ine, unspecified formulation Noms Nurse [facility] Payers Date Payer Category Payer Medicaid HMO [id number] 2024 Blue Cross [employer] Managed Care - O [id number] 2023 Medicaid [facility] MEDICAID [place] MED[place] [id number] 2023-Present [address] [place] [id number] [id number] 2023 Medicaid (Managed Care) [employer] [id number] 2021 Blue Cross Blue Shield 1.2.8 [id number] 2021 Unknown BCBS BCBS [id number] [id number] 2021-Present [phone] [address] [place] [address] [id number]. [id number] 2001 Unknown [id number] 2.16.840.1.801905.3.579.2. 593 2001 Unknown [id number] 2.16.840.1.827666.3.579.2. 593 2001 Unknown [id number] 2.16.840.1.701005.3.579.2. 593 2001 Unknown [id number] 2.16.840.1.381192.3.579.2. 593 2001 Unknown [id number] 2.16.840.1.065935.3.579.2. 593 2001 Unknown [id number] 2.16.840.1.650056.3.579.2. 593 2001 Unknown [id number] 2.16.840.1.528784.3.579.2. 593 2001 Unknown [id number] 2.16.840.1.434756.3.579.2. 593 2001 Unknown [id number] 2.16.840.1.159247.3.579.2. 593 2001 Unknown [id number] 2.16.840.1.320496.3.579.2. 593 2001 Unknown [id number] 2.16.840.1.128454.3.579.2. 593 2001 Unknown [id number] 2.16.840.1.663765.3.579.2. 593 2001 Unknown [id number] 2.16.840.1.345057.3.579.2. 593 2001 Unknown [id number] 2.16.840.1.824918.3.579.2. 593 2001 Unknown [id number] 2.16.840.1.549947.3.579.2. 593 2001 Unknown [id number] 2.16.840.1.503187.3.579.2. 593 2001 Unknown [id number] 2.16.840.1.570538.3.579.2. 593 2001 Unknown [id number] 2.16.840.1.513669.3.579.2. 593 2001 Unknown [id number] 2.16.840.1.216048.3.579.2. 593 2001 Unknown [id number] 2.16.840.1.410107.3.579.2. 593 2001 Unknown [id number] 2.16.840.1.051691.3.579.2. 593 2001 Unknown [id number] 2.16.840.1.060568.3.579.2. 1286 2001 Unknown [id number] 2.16.840.1.834212.3.579.2. 128 2001 Unknown [id number] 2.16.840.1.779227.3.579.2. 128 2001 Unknown [id number] 2.16.840.1.074051.3.579.2. 128 2001 Unknown [id number] 2.16.840.1.807682.3.579.2. 1286 2001 Unknown [id number] 2.16.840.1.319500.3.579.2. 1259 2001 Unknown [id number] 2.16.840.1.686148.3.579.2. 1259 2001 Unknown [id number] 2.16.840.1.890576.3.579.2. 1258 2001 Unknown [id number] 2.16.840.1.246445.3.579.2. 1258 2001 Unknown [id number] 2.16.840.1.926039.3.579.2. 1258 2001 Unknown [id number] 2.16.840.1.686632.3.579.2. 1258 2001 Unknown [id number] 2.16.840.1.339082.3.579.2. 1258 2001 Unknown [id number] 2.16.840.1.359854.3.579.2. 1258 2001 Unknown [id number] 2.16840.1.281686.3.579.2. 1258 2001 Unknown [id number] 2.16840.1.011908.3.579.2. 1258 2001 Unknown [id number] 2.16840.1.674590.3.579.2. 1258 2001 Unknown [id number] 2.16840.1.655851.3.579.2. 1258 2001 Unknown [id number] 2.16840.1.082901.3.579.2. 1258 2001 Unknown [id number] 2.16840.1.064081.3.579.2. 1258 2001 Unknown [id number] 2.840.1.278807.3.579.2. 1258 2001 Unknown [id number] 2.16840.1.261051.3.579.2. 9 1959 Self-pay 1959 Unknown [id number] 1959 Unknown [id number] Unknown [id number] 2.16840.1.177949.3.579.2. 593 Unknown [id number] 2.840.1.161891.3.579.2. 531 Social History Date Type Detail Facility Start: 10-13-2023 End: 06-29-2024 Sex Assigned At [facility] [employer] Other Start: 2001 Sex Assigned At Female F [facility] Start: 10-13-2023 End: 05-10-2025 Tobacco smoking status NHIS Never smoked tobacco [facility] Start: 06-29-2024 End: 06-26-2025 Alcoholic beverage intake Current drinker of alcohol (finding) [facility] Start: 10-13-2023 End: 06-29-2024 History of Social function [facility] Start: 05-24-2024 [facility] Start: 2001 Sex assigned at Not on file N [facility] Tobacco smoking stat us NHIS Unknown if ever smoked [facility] Work Phone: Start: 04-29-2015 End: 08-11-2024 Sex Female (finding) [facility] Start: 05-10-2025 End: 05-31-2025 Alcoholic beverage intake Ex-drinker (finding) [facility] Unknown [facility] Medical Equipment Procedure Code Equipment Code Equipment Origin al Text Equipment Identifier Dates 1 strip by In Vi tro route Daily Use in the morning prior to breakfast, 1 hour after each meal for a total of 4times daily. [id number] Start: 05-08-2025 End: 06-07-2025 1 each by In Vit ro route Daily Use to check FSBS four times daily [id number] Start: 05-08-2025 End: 06-07-2025 Clinical Notes 12-26-2022 to 06-26-2025 Megan Aranda NP - 06/26/2025 9:10 AM Sriram Felder LPN - 06/19/2025 2:40 PM TRUE Navarro - 06/12/2025 3:00 PM EDTTelephone Encounter - Xenia London RD - 06/05/2025 11:08 AM EDT Note Date & Type Note Facility 06-26-2025 History of Presen t illness Narrative Reason for Appointment: Patient ID: Vimal Funes is a 25 y.o. female who presents for Routine Visit Patient presents today for Return OB appointment. MEDICATIONS Current Outpatient Medications Medication Instructions Alcohol Swabs (Alcohol Prep Pad) 70 % pads 1 Pad, Topical, Daily, Use four times daily to check FSBS. Blood Glucose Monitoring Suppl ([employer]-Wave Broadband Glucometer) w/Device kit 1 kit, Does not [...] Problems Diagnosis Date Noted induced hypertension, antepartum ([facility]) 05/28/2025 Gestational diabetes mellitus (GDM), antepartum ([facility]) 05/28/2025 Resolved Ambulatory Problems Diagnosis Date Noted No Resolved Ambulatory Problems Past Medical History: Diagnosis Date Anemia Gestational diabetes ([facility]) History of blood transfusion Lead poisoning Miscarriage ([facility]) Nonsmoker Post depression HISTORY PAST MEDICAL HISTORY SOCIAL HISTORY Past Medical History: Diagnosis Date Anemia Gestational diabetes ([facility]) History of blood transfusion Lead poisoning Miscarriage ([facility]) Nonsmoker Post depression /anxiety Social [...] nursing note reviewed. Exam conducted with a brass plater present. Vitals: Estimated body mass index is [...] WITH SUSCEPTIBLITY 2. 36 weeks gestation of ([facility]) Z3A.36 3. Diet controlled gestational diabetes mellitus (GDM), antepartum ([facility]) O24.410 4. induced hypertension, antepartum ([facility]) O13.9 Patient is doing well [...] Megan Aranda NP documented in this encounter [facility] 06-19-2025 History of Presen t illness Narrative Reason for Appointment: Patient ID: Vimal Funes is a 25 y.o. female who presents for Routine Visit Patient presents today for Return OB appointment. MEDICATIONS Current Outpatient Medications Medication Instructions Alcohol Swabs (Alcohol Prep Pad) 70 % pads 1 Pad, Topical, Daily, Use four times daily to check FSBS. Blood Glucose Monitoring Suppl ([employer] Glucometer) w/Device kit 1 kit, Does not [...] transfusion Lead poisoning Miscarriage ([facility]) Nonsmoker Post depression HISTORY PAST MEDICAL HISTORY SOCIAL HISTORY Past Medical History: Diagnosis Date Anemia Gestational diabetes ([facility]) History of blood transfusion Lead poisoning Miscarriage ([facility]) Nonsmoker Post depression /anxiety Social History [...] nursing note reviewed. Exam conducted with a brass plater present. Vitals: Estimated body mass index is 31.89 kg/m as calculated from the following: Height as of 01/06/23: 5' 3 . Weight as of this encounter: 180 lb. BP: 142/86 Patient's last menstrual period was 10/15/2024 (exact date). ASSESSMENT & PLAN ICD-10-CM 1. Third trimester ([facility]) Z34.93 POCT urinalysis dipstick manually resulted 2. 35 weeks gestation of ([facility]) Z3A.35 3. Diet controlled gestational diabetes mellitus (GDM), antepartum ([facility]) O24.410 4. induced hypertension, antepartum ([facility]) O13.9 Return OB: Patient [...] encounter [facility] 06-12-2025 History of Presen t illness Narrative Reason for Appointment: Patient ID: Vimal Funes is a 25 y.o. female who presents for Routine Visit Patient presents today for Return OB appointment. MEDICATIONS Current Outpatient Medications Medication Instructions Alcohol Swabs (Alcohol Prep Pad) 70 % pads 1 Pad, Topical, Daily, Use four times daily to check FSBS. Blood Glucose Monitoring Suppl (PacketFront Glucometer) w/Device kit 1 kit, Does not [...] encounter [facility] 06-05-2025 Miscellaneous Notes Received blood sugars from [...] again next week. [facility] Telephone encounter Note Received blood sugars [...] send in more numbers again next week. [employer] Work Phone: 06-04-2025 History of Presen t [...] and the other consultants, we search on nPario and all the available care everywhere epic I did review all the imaging studies of the patient available on EMR, ordered by the primary care physician and the other advertising sales consultant HABITS: Patient activity no restrictions, diet [...] patient is in complete care of her clinical documentation manager. Patient does have multiple ultrasound scheduled with us Thank you for allowing me to participate in Vimal Funes . If there any questions please do not hesitate to contact us. Sincerely, MANAS MARTIN MD Video Visit via Real-time Synchronous Audiovisual Provider Location: [facility] MATERNAL- MEDICINE AT [address] [address] Patient Location: Other [facility] office Patient Location Sap Ppm Consultant: None Video Visit Consent Statement: I discussed [...] that there are some limitations compared to [id number] evaluations. We elected to proceed. [facility]2025 Miscellaneous Notes Called regarding blood sugar logs from 05/20/25-05/26/25 but received voicemail. Vimal had 4 elevated fasting blood sugars and 2 elevated blood sugars after breakfast. Most recent fasting blood sugars have improved and she had three in target. We did talk last week about changing her evening snack. Will send a MyChart message. [facility]-28-2025 Telephone encounter Note Called regarding blood sugar logs from 05/20/25-05/26/25 but received voicemail. Vimal had 4 elevated fasting blood sugars and 2 elevated blood sugars after breakfast. Most recent fasting blood sugars have improved and she had three in target. We did talk last week about changing her evening snack. Will send a MyChart message. [employer] Work Phone: 05-28-2025 History of Presen t [...] Problems Diagnosis Date Noted induced hypertension, antepartum ([facility]) 05/28/2025 Gestational diabetes mellitus (GDM), antepartum ([facility]) 05/28/2025 Resolved Ambulatory Problems Diagnosis Date Noted No Resolved Ambulatory Problems Past Medical History: Diagnosis Date Anemia Gestational diabetes ([facility]) History of blood transfusion Lead poisoning Miscarriage ([facility]) Nonsmoker Post depression HISTORY PAST MEDICAL HISTORY SOCIAL HISTORY Past Medical History: Diagnosis Date Anemia Gestational diabetes ([facility]) History of blood transfusion Lead poisoning Miscarriage ([facility]) Nonsmoker Post depression /anxiety [...] nursing note reviewed. Exam conducted with a brass plater present. Vitals: Estimated body mass index is 32.06 kg/m as calculated from the following: Height as of 01/06/23: 5' 3 . Weight as of this encounter: 181 lb. BP: 136/80 Patient's last menstrual period was 10/15/2024 (exact date). ASSESSMENT & PLAN ICD-10-CM 1. Third trimester ([facility]) Z34.93 POCT urinalysis dipstick manually resulted 2. 32 weeks gestation of ([facility]) Z3A.32 3. Gestational diabetes mellitus (GDM), antepartum, gestational diabetes method of control unspecified ([facility]) O24.419 4. induced hypertension, antepartum ([facility]) O13.9 Return OB: Patient [...] to check FSBS. Blood Glucose Monitoring Suppl ([employer]-Wave Broadband Glucometer) w/Device kit 1 kit, Does not [...] transfusion Lead poisoning Miscarriage ([facility]) Nonsmoker Post depression HISTORY PAST MEDICAL HISTORY SOCIAL HISTORY Past Medical History: Diagnosis Date Anemia Gestational diabetes ([facility]) History of blood transfusion Lead poisoning Miscarriage ([facility]) Nonsmoker Post depression /anxiety Social [...] nursing note reviewed. Exam conducted with a brass plater present. Vitals: Estimated body mass index is 31.49 kg/m as calculated from the following: Height as of 01/06/23: 5' 3 . Weight as of this encounter: 177 lb 12 oz. BP: (!) 138/92 Patient's last menstrual period was 10/15/2024 (exact date). ASSESSMENT & PLAN ICD-10-CM 1. Third trimester ([facility]) Z34.93 POCT urinalysis dipstick manually resulted 2. 31 weeks gestation of ([facility]) Z3A.31 Return OB: Patient presents today for [...] sugars next week. [facility] Telephone encounter Note Called regarding blood [...] send in blood sugars next week. [facility] [employer] Work Phone: 05-14-2025 History of Presen t [...] Medical History: Diagnosis Date Anemia Gestational diabetes ([facility]) History of blood transfusion Lead poisoning Miscarriage ([facility]) Nonsmoker Post depression HISTORY PAST MEDICAL HISTORY SOCIAL HISTORY Past Medical History: Diagnosis Date Anemia Gestational diabetes ([facility]) History of blood transfusion Lead poisoning Miscarriage ([facility]) Nonsmoker Post depression /anxiety Social [...] nursing note reviewed. Exam conducted with a brass plater present. Vitals: Estimated body mass index is 31.35 kg/m as calculated from the following: Height as of 01/06/23: 5' 3 . Weight as of this encounter: 177 lb. BP: 140/90 Patient's last menstrual period was 10/15/2024 (exact date). ASSESSMENT & PLAN ICD-10-CM 1. Third trimester ([facility]) Z34.93 POCT urinalysis dipstick manually resulted 2. 30 weeks gestation of ([facility]) Z3A.30 POCT urinalysis dipstick manually resulted 3. induced hypertension, antepartum ([facility]) O13.9 Creatinine Protein, urine, 24 [...] Face to face time was 110 minutes. [employer] Work Phone: 05-13-2025 Miscellaneous Notes Patient: Vimal [...] was 110 minutes. documented in this encounter [employer] 05-07-2025 Telephone encounter Note Called pt to [...] transfusion Lead poisoning Miscarriage ([facility]) Nonsmoker Post depression HISTORY PAST MEDICAL HISTORY SOCIAL HISTORY Past Medical History: Diagnosis Date Anemia Gestational diabetes ([facility]) History of blood transfusion Lead poisoning Miscarriage ([facility]) Nonsmoker Post depression /anxiety Social History [...] resulted 2. -induced hypertension in third trimester ([facility]) O13.3 US biophysical profile w non stress test US OB follow up transabdominal approach labetalol (Normodyne) 300 MG tablet 3. Gestational diabetes mellitus (GDM) in third trimester, gestational diabetes method of control unspecified ([facility]) O24.419 US biophysical profile w [...] ASSESSMENT & PLAN ICD-10-CM 1. Second trimester ([facility]) Z34.92 2. 27 weeks gestation of ([facility]) Z3A.27 Patient presents for [...] Medical History: Diagnosis Date Anemia Gestational diabetes [facility] [facility] History of blood transfusion Lead poisoning Miscarriage ([facility]) Nonsmoker Post depression HISTORY PAST MEDICAL HISTORY SOCIAL HISTORY Past Medical History: Diagnosis Date Anemia Gestational diabetes ([facility]) History of blood transfusion Lead poisoning Miscarriage ([facility]) Nonsmoker Post depression /anxiety Social History [...] ASSESSMENT & PLAN ICD-10-CM 1. Second trimester ([facility]) Z34.92 POCT urinalysis dipstick manually resulted 2. 25 weeks gestation of ([facility]) Z3A.25 3. Diabetes mellitus screening [...] nursing note reviewed. Exam conducted with a brass plater present. Vitals: Estimated body mass index is 29.23 kg/m as calculated from the following: Height as of 01/06/23: 5' 3 . Weight as of this encounter: 165 lb. BP: 112/76 Patient's last menstrual period was 10/15/2024 (exact date). ASSESSMENT & PLAN ICD-10-CM 1. Second trimester ([facility]) Z34.92 POCT urinalysis dipstick manually resulted 2. 21 weeks gestation of ([facility]) Z3A.21 Patient presents today for [...] nursing note reviewed. Exam conducted with a brass plater present. Vitals: Estimated body mass index is [...] nursing note reviewed. Exam conducted with a brass plater present. Vitals: Estimated body mass index is [...] undercooked meat, and stay away from [facility]. Patient has been consulted regarding any further [...] at [facility] with Dr. Rodriguez. Pathology results was reviewed [...] nursing note reviewed. Exam conducted with a brass plater present. Vitals: Estimated body mass index is [...] vaginal bleeding. Patient to discuss date with Enterprise Systems Architect prior to leaving. Patient is able to [...] transfusion Lead poisoning Nonsmoker Post depression ([facility]) Family History Problem Relation Name [...] undercooked meat, and stay away from [facility]. Patient has also been advised to not [...] appointment to be seen soon as possible [employer] Other Evaluation noteNo assessment information available [facility] Work Phone: Evaluation note* Diagnosis [...] note* Diagnosis Third trimester ([facility]) state, incidental 36 weeks gestation of ([facility]) Diet controlled gestational diabetes mellitus (GDM), antepartum ([facility]) induced hypertension, antepartum ([facility]) Transient hypertension of , antepartum documented in this encounter [facility] HealthcareInstructionsNot on filedocumented in this encounterProMediin Health SystemInstructionsNot on filedocumented in this encounterProMediin Health SystemInstructionsNot on filedocumented in this encounterProV[facility] SystemInstructionsNot on filedocumented in this encounterProProtestant [facility] System Summary Purpose Family History No Family History Records FoundNo Family History Records FoundNo Family History Records FoundNo Family History Records FoundNo Family History Records FoundNo Family History Records Found Advance Directives Advance Directive Response Recorded Date/ Time Advance Directives No December 27 6:21am Additional Source Comments INFORMATION SOURCE (unrecogn ized section and content) DATE CREATED AUTHOR 09/24/2021 [facility] DATE CREATED AUTHOR AUTHOR'S ORGANIZ ATION 12/07/2022 [facility] DATE CREATED AUTHOR AUTHOR'S ORGANIZ ATION 08/15/2024 [facility] DATE CREATED AUTHOR AUTHOR'S ORGANIZ ATION 06/06/2025 [facility] DATE CREATED AUTHOR AUTHOR'S ORGANIZ ATION 06/20/2025 [facility] DATE CREATED AUTHOR AUTHOR'S ORGANIZ ATION 06/20/2025 [facility] EPIC REASON FOR VISIT (unrecogniz ed [...] method of control unspecified Jose Rodriguez, DO [address] [place] [address] Dr [place]ué [place] [address] Phone: tel: fax: M[facility]- [facility] at [facility] [address] [place] [address] Phone: tel: fax: Referral ID Status Reason Start Date Expiration Date Visits Requested Visits Authorized [id number] Pending Review Specialty Services Required 05/09/2025 05/09/2026 1 1 Care Teams (unrecognized sec tion and content) Team Status: Inactive Member Role Status Dates Jennifer Huston NP-C Attending Provider Active Hospital Unit Coordinator Relationship Specialty Start Date End Date Vaishali Zapata MD [address] [place] [address] PCP - General Family Medicine 02/04/23 Hospital Unit Coordinator Relationship Specialty Start Date End Date Vaishali Zapata MD [address] [place] [address] PCP - General Family Medicine 02/04/23 Team Status: Active Member Role Status Dates PHYSICIAN NO FAMILY Primary Care Provider Active Team Status: Inactive Member Role Status Dates PHYSICIAN NO FAMILY Primary Care Provider Active Start: August 10, 2024 End: August 10, 2024 Jose Rodriguez DO Attending Provider Active Start : August 10, 2024 End: August 10, 2024 Hospital Unit Coordinator Relationship Specialty Start Date End Date Unallocated, Arjun Vo MD [facility] [address] [facility] [place] [address] PCP - General Family Medicine 08/03/24 Hospital Unit Coordinator Relationship Specialty Start Date End Date Unallocated, Arjun Vo MD [facility] [address] [facility] [place] [address] PCP - General Family Medicine 08/03/24 Hospital Unit Coordinator Relationship Specialty Start Date End Date Unallocated, Arjun Vo MD [facility] [address] [facility] [place] [address] PCP - General Family Medicine 08/03/24 Hospital Unit Coordinator Relationship Specialty Start Date End Date Unallocated, [facility] [place] [address] PCP - General Family Medicine 08/03/24 Hospital Unit Coordinator Relationship Specialty Start Date End Date Unallocated, [place] [address] PCP - General Family Medicine 08/03/24 Hospital Unit Coordinator Relationship Specialty Start Date End Date Unallocated, [place] [address] PCP - General Family Medicine 08/03/24 Hospital Unit Coordinator Relationship Specialty Start Date End Date Unallocated, Arjun Vo MD [facility] [address] [facility] [place] [address] PCP - General Family Medicine 08/03/24 Hospital Unit Coordinator Relationship Specialty Start Date End Date Unallocated, [facility] [place] [address] PCP - General Family Medicine 08/03/24 Hospital Unit Coordinator Relationship Specialty Start Date End Date Unallocated, Arjun Vo MD [facility] [address] [facility] [place] [address] PCP - General Family Medicine 08/03/24 Hospital Unit Coordinator Relationship Specialty Start Date End Date Unallocated, Arjun Vo MD [facility] [address] [facility] [place] [address] PCP - General Family Medicine 08/03/24 Hospital Unit Coordinator Relationship Specialty Start Date End Date Unallocated, Arjun Vo MD [facility] [address] [facility] [place] [address] PCP - General Family Medicine 08/03/24 Hospital Unit Coordinator Relationship Specialty Start Date End Date Unallocated, Arjun Vo MD [facility] [place] [address] PCP - General Family Medicine 08/03/24 Hospital Unit Coordinator Relationship Specialty Start Date End Date Unallocated, [facility] [place] [address] PCP - General Family Medicine 08/03/24 Hospital Unit Coordinator Relationship Specialty Start Date End Date Unallocated, [place] [address] PCP - General Family Medicine 08/03/24 Hospital Unit Coordinator Relationship Specialty Start Date End Date Unallocated, Arjun Vo MD [address] [facility] [place] [address] PCP - General [facility] 08/03/24 Hospital Unit Coordinator Relationship Specialty Start Date End Date Unallocated, Arjun Vo MD [address] [place] [address] PCP - [facility] 08/03/24 Hospital Unit Coordinator Relationship Specialty Start Date End Date Unallocated, Arjun Vo MD [address] [place] [address] PCP - [facility] 08/03/24 Hospital Unit Coordinator Relationship Specialty Start Date End Date Unallocated, Arjun Vo MD [address] [facility] [place] [address] PCP - [facility] 08/03/24 Goals (unrecognized section and content) [...] BE BASED ON THE PRIMARY CLINICAL RECORDS. [employer] [facility]. provides no warranty or guarantee of the accuracy or completeness of information in this document.
--- OUTSIDE RECORDS SUMMARY | 2025-06-29 11:07 | XMS_ITS | Encounter Summary ---
Author Organization [facility] Address [address] [place] [address] Care Team Providers Care Metal Spinner Name Role Phone Unallocated, Noms Provider Primary Care Provi krissy Encounter Details Date Type Department Care Team (Late st Contact Info) Description 03/06/2025 Orders Only [facility] [address] [place] [address] Kavitha Almanza MA Social History Tobacco [...] EDT Routine [facility] [address] [place] [address] Megan Aranda, [address] [place] [address] documented as of this encounter Procedures [...] filedocumented in this encounter Care Teams Metal Spinner Relationship Specialty Start Date End Date Unallocated, Noms Provider, [address] [place] [address] PCP - General Family Medicine 08/03/24 documented as of this encounter
--- OUTSIDE RECORDS SUMMARY | 2025-06-29 11:07 | XMS_ITS | Clinical Summary ---
Author Organization [facility] Address [address] [place] [address] Care Team Providers Care Cut Roll Machine Offbearer Name Role Phone Unallocated, Noms Provider Primary Care Provi krissy Allergies No known active allergies Medications Vit-DSS-Fe Fum-FA ( 19) 29-1 MG tablet Take 1 each by mouth 1 (one) time each day at the same time Active loratadine (Claritin) 10 MG tablet Take 10 mg by mouth Daily Active labetalol (Normodyne) 200 MG tabletIndications : induced hypertension, antepartum (HHS-HCC) Take 1 tablet (200 mg) by mouth in the morning and 1 tablet (200 mg) before bedtime. 60 tablet 5 04/25/20 26 Active labetalol (Normodyne) 300 MG tabletIndications :-induce d hypertension in third trimester (HHS-HCC) Take 1 tablet (300 mg) by mouth in the morning and 1 tablet (300 mg) in the evening and 1 tablet (300 mg) before bedtime. 90 tablet 5 04/30/20 26 Active Alcohol Swabs (Alcohol Prep Pad) 70 % padsIndications:G estational diabetes mellitus (GDM), antepartum, gestational diabetes method of control unspecified (HHS-HCC),Elevate d glucose tolerance test Apply 1 Pad topically Daily Use four times daily to check FSBS. 150 each 3 5 Active Blood Glucose Monitoring Suppl (D-Care Glucometer) w/Device kitIndications:Ge stational diabetes mellitus (GDM), antepartum, gestational diabetes method of control unspecified (HHS-HCC),Elevate d glucose tolerance test 1 kit Daily Use four times daily to check FSBS. In the morning prior to breakfast & 1 hour after each meal for a total of 4times daily. 1 kit 5 05/08/20 26 Active Lancets Ultra Thin miscIndications:G estational diabetes mellitus (GDM), antepartum, gestational diabetes method of control unspecified (HHS-HCC),Elevate d glucose tolerance test 1 each by In Vitro route Daily Use to check FSBS four times daily 150 each 3 5 06/07/20 25 Glucose Blood (Blood Glucose Test) stripIndications: Gestational diabetes mellitus (GDM), antepartum, gestational diabetes method of control unspecified (HHS-HCC),Elevate d glucose tolerance test 1 strip by In Vitro route Daily Use in the morning prior to breakfast, 1 hour after each meal for a total of 4times daily. 150 strip 3 5 06/07/20 25 Active Problems Problem Noted Date Diagnosed Date induced hypertension, antepartum ([facility] HCC) 05/28/2025 Gestational diabetes mellitus (GDM), antepartum ([facility]-HCC) 05/28/2025 Estimated Date of Delivery Comme nts Yes 07/22/2025 Based on last me nstrual period of 10/15/2024 (Exact Date) Encounters Date Type Department Care Team Description 06/26/2025 9:10 AM [place] [address] Megan Aranda NP Third trimester ([facility]); 36 weeks gestation of ([facility]); Diet controlled gestational diabetes mellitus (GDM), antepartum ([facility]-HCC); induced hypertension, antepartum ([facility]-HCC) 06/26/2025 [place] [address] Mackenzie Rodriguez DO 06/26/2025 Bamboo flowsheet [facility] PANG [address] [place] [address] Megan Aranda NP 06/25/2025 Abstract [facility] OBGYN Uzma [address] [place] [address] Kavitha Almanza MA 06/22/2025 Clinisync Result Encounter NOMS External Department Unsolicited Rossana Leach PA 06/19/2025 2:40 PM EDT Routine [facility] OBGYN [address] [place] [address] Mackenzie Rodriguez DO Third trimester ([facility]); 35 weeks gestation of ([facility]); Diet controlled gestational diabetes mellitus (GDM), antepartum ([facility]); induced hypertension, antepartum ([facility]) 06/19/2025 Abstract [facility] [place] Gusman [address] [place] [address] Mackenzie Rodriguez DO 06/15/2025 Clinisync Result Encounter NOMS External Department Unsolicited Rossana Leach PA 06/12/2025 3:00 PM EDT Routine [facility] OBCHICHO Gusman [address] [place] [address] Rossana Leach PA Third trimester ([facility]); 34 weeks gestation of ([facility]) 06/12/2025 Bamboo flowsheet [facility] OBGYKeegan [address] [place] [address] [place] [address] Rossana Leach PA 06/08/2025 Clinisync Result Encounter NOMS External Department Unsolicited Rossana Leach PA 06/06/2025 Results Follow-Up ARJUN Gus[place] [address] Glenna Butler LPN US OB 14+ weeks anatomy scan 06/05/2025 Abstract N[place] [address] Mackenzie Rodriguez, DO 06/04/2025 External Result Encounter [facility] [address] Mackenzie Rodriguez, DO 06/01/2025 Clinisync Result Encounter NOMS External Department Unsolicited Rossana Leach PA 05/28/2025 10:30 AM EDT Routine [facility] [address] Mackenzie Rodriguez, DO Third trimester ([facility]); 32 weeks gestation of ([facility]); Gestational diabetes mellitus (GDM), antepartum, gestational diabetes method of control unspecified ([facility]); induced hypertension, antepartum ([facility]) 05/28/2025 Bamboo flowsheet NOMMay Gus[place] [address] Mackenzie Rodriguez, DO 05/25/2025 Clinisync Result Encounter NOMS External Department Unsolicited Rossana Leach PA 05/22/2025 2:40 [place] [address] Mackenzie Rodriguez, DO Third trimester ([facility]); 31 weeks gestation of ([facility]) 05/22/2025 Bamboo flowsheet NOMMay Gus[place] [address] Mackenzie Rodriguez, DO 05/20/2025 Clinisync Result Encounter NOMS External Department Unsolicited Mackenzie Rodriguez, DO 05/18/2025 Clinisync Result Encounter NOMS External Department Unsolicited Rossana Leach PA 05/18/2025 Clinisync Result Encounter NOMS External Department Unsolicited Mackenzie Rodriguez, DO 05/14/2025 2:40 PM EDT [place] [address] Mackenzie Rodriguez, DO Third trimester ([facility]); 30 weeks gestation of ([facility]); induced hypertension, antepartum ([facility]) 05/14/2025 [place] [address] Mackenzie Rodriguez, 05/11/2025 Clinisync Result Encounter NOMS External Department Unsolicited Rossana Leach PA 05/08/2025 [place] [phone] Mackenzie Rodriguez, 05/07/2025 [place] [address] Glenna Butler, TOOTH CUTTER SPUR ALL CBC WITH AUTO DIFF, SRMCOH PROTHROMBIN TIME INR W/O COUM, [facility] APTT, Additional followed-up results: 6 05/06/2025 Clinisync Result Encounter NOMS External Department Unsolicited Rossana Leach PA 05/04/2025 Clinisync Result Encounter NOMS External Department Unsolicited Rossana Leach PA 05/04/2025 Clinisync Result Encounter NOMS External Department Unsolicited Rossana Leach PA 05/04/2025 [place] [address] Mackenzie Rodriguez, 05/04/2025 Clinisync Result Encounter NOMS External Department Unsolicited Rossana Leach PA 04/30/2025 10:50 AM [place] [phone] Rossana Leach PA BP check; -induced hypertension in third trimester ([facility]); Gestational diabetes mellitus (GDM) in third trimester, gestational diabetes method of control unspecified ([facility]) 04/30/2025 Bamboo flowsheet [facility] [place] PANG [address] [place] [address] Rossana Leach PA 04/29/2025 Telephone [facility] [place] [phone] AlmanzaKavitha evans MA 04/27/2025 Clinisync Result Encounter NOMS External Department Unsolicited Rossana Leach PA 04/25/2025 2:50 PM EDT Office Visit [facility] [place] Gus[place] [address] Rossana Leach PA Second trimester ([facility]); 27 weeks gestation of ([facility]); induced hypertension, antepartum ([facility]) 04/25/2025 Bamboo flowsheet [facility] PANG [address] [place] [address] [place] [address] Rossana Leach PA 04/11/2025 3:30 PM EDT Routine [facility] PANG [address] [place] [address] [place] [address] Rossana Leach PA Second trimester ([facility]); 25 weeks gestation of ([facility]); Diabetes mellitus screening; Elevated BP without diagnosis of hypertension 04/11/2025 Bamboo flowsheet [facility] PANG [address] [place] [address] [place] [address] Rossana Leach PA from Last 3 Months [...] AM EDT Routine [facility] OBGYN [address] [place] [address] Megan Aranda, PROGRESS MAN [address] [place] [place] [address] Health Maintenance Due Date Last Done Comments Influenza Vaccine (#1) 2025 08/28/2003, 2002 Procedures Procedure Name Priority Date/Time Associated Diagnosis Comments POCT URINALYSIS DIPSTICK Routine 06/26/2025 9:32 AM EDT Third trimester ([facility]) US OB BPP W NON-STRESS 06/22/2025 7:28 PM EDT POCT URINALYSIS DIPSTICK Routine 06/19/2025 3:05 PM EDT Third trimester ([facility]) US OB BPP W NON-STRESS 06/15/2025 12:51 PM EDT POCT URINALYSIS DIPSTICK Routine 06/12/2025 3:32 PM EDT Third trimester ([facility]) 34 weeks gestation of ([facility]) US OB BPP W NON-STRESS 06/08/2025 12:10 PM EDT US OB 14+ WEEKS ANATOMY SCAN 06/04/2025 4:20 PM EDT US OB BPP W NON-STRESS 06/01/2025 12:03 PM EDT POCT URINALYSIS DIPSTICK Routine 05/28/2025 11:00 AM EDT Third trimester ([facility]) US OB BPP W NON-STRESS 05/25/2025 11:13 AM EDT POCT URINALYSIS DIPSTICK Routine 05/22/2025 3:12 PM EDT Third trimester ([facility]) TBH TOTAL PROTEIN 24 HOUR URINE [...] Routine 04/25/2025 3:12 PM EDT Second trimester ([facility]) POCT URINALYSIS DIPSTICK Routine 04/11/2025 3:44 PM EDT Second trimester ([facility]) from Last 3 Months Results * POCT [...] PM EDT Narrative 06/22/2025 7:31 [place] [address] Ultrasound Report Signed Patient: VIMAL FUNES MR#: [id number] : 2000 Acct:[id number] Age/Sex: 25 / F ADM Date: 06/22/25 Loc: US Attending Dr: Rossana Leach Ordering Physician: Rossana Leach Date of Service: 06/22/25 Procedure(s): US OB BPP w non-stress Accession Number(s): [id number] cc: Rossana Leach; LUIS SEE [place] [id number] Patient Name: VIMAL FUNES MRN: [id number] date: 2000 Sex: F Assigned Patient Location: [facility] Current Patient Location: Accession/Order Number: [id number] Exam Date: 06/22/2025 10:52 Report Date: 06/22/2025 [...] Acharya M.D. 06/22/2025 7:28 PM Dictation Location: [place] [address] Electronically authenticated by: [id number] Y Date: 06/22/2025 19:28 Dictated By: Heriberto Acharya M.D. Signed By: 06/22/251930 DD/ 27 TD/TT: Separator Tender: Procedure Note Radiology, Radiologist, MD - 06/22/2025 [place] [address] Ultrasound Report Signed Patient: VIMAL FUNES MMR#: [id number] : 2000Acct:[id number] Age/Sex: 25 / FADM Date: 06/22/25 Loc: US Attending Dr: Rossana Leach Ordering Physician: Rossana Leach Date of Service: 06/22/25 Procedure(s): US OB BPP w non-stress Accession Number(s): [id number] cc: Rossana Leach; [place] [address] Patient Name: VIMAL FUNES MRN: [id number] date: 2000 Sex: F Assigned Patient Location: [facility] Current Patient Location: Accession/Order Number: [id number] Exam Date: 06/22/2025 10:52 Report Date: 06/22/2025 [...] Acharya M.D. 06/22/2025 7:28 PM Dictation Location: [place] [address] Electronically authenticated by: [id number] Y Date: 9:28 Dictated By: Heriberto Acharya M.D. Signed By:06/22/251930 DD/ 27 TD/TT: Separator Tender: us Rossana BISWAS CLINISYNC IMAGING Final Result * US OB 14+ weeks anatomy scan (06/04/2025 4:20 PM EDT) Anatomical Region Laterality Modality Body Ultrasound 06/04/2025 4:20 PM EDT Narrative 06/04/2025 4:20 PM EDT THIS EXAM WAS PERFORMED AT [facility] NAME: JERICA CELIS : 2000 SEX: F Accession Number: [id number] ORDERING PHYSICIAN: CHRIS MARTIN REFERRING PHYSICIAN: MACKENZIE RODRIGUEZ Coding ----- --------- Procedures 62547: Ultrasound, uterus, real time with image documentation, and maternal evaluation plus detailed anatomic examination, transabdominal approach;single or first gestation 50662: Doppler velocimetry, ; umbilical artery Indication ----- [...] previous U/S 33 w + 0 d LYIDA by previous Ultrasound: 07/23/2025 Ultrasound examination on: [...] EFW (oz) 4 oz EFW by: Hadlock ([id number]) Extended Tibia 49.0 mm 29w 3d <1% Khanh Foot 56.8 mm <1% Chitty Boat Pilot 4.6 mm CM 6.2 mm 19% Nicolaides [...] bone. Maxilla. Mandible. Orbits. Heart/Thorax: LVOT view. 1-vrlmgd-zqymadl view. Situs. Ductal arch view. Cardiac position. [...] 4.2 cm. Recommendations ----- --------- Please see [facility] documentation from today. Subsequent follow up or other follow up as clinically determined by primary OB provider unless otherwise specified by [facility]. Results forwarded to ordering provider so they can follow up with the patient as necessary. The copy-to physician of this order is MACKENZIE Victoria The ordering physician of this order is CHRIS Patterson Procedure Note Radiology, Radiologist, MD - 06/04/2025 THIS EXAM WAS PERFORMED AT [facility] NAME: JERICA CELIS : 2000 SEX: F Accession Number: [id number] ORDERING PHYSICIAN: CHRIS MARTIN REFERRING PHYSICIAN: MACKENZIE RODRIGUEZ Coding ----- --------- Procedures 53690: Ultrasound, uterus, real time with imagedocumentation, and maternal evaluation plus detailed anatomic examination, transabdominalapproach;single or first gestation 74353: Doppler velocimetry, ; umbilical artery Indication ----- [...] EFW (oz) 4 oz EFW by: Hadlock ([id number]-FL) Extended Tibia 49.0 mm 29w 3d <1% Khanh Foot 56.8 mm <1% Chitty Boat Pilot 4.6 mm CM 6.2 mm 19% Nicolaides [...] bone. Maxilla. Mandible. Orbits. Heart/Thorax: LVOT view. 2-adrofv-jotorfg view. Situs. Ductal arch view.Cardiac position. Cardiac [...] 4.2 cm. Recommendations ----- --------- Please see [facility] documentation from today. Subsequent follow up or other follow up as clinically determined byprimary OB provider unless otherwise specified by [facility]. Results forwarded to ordering provider so they can follow up with thepatient as necessary. The copy-to physician of this order is MACKENZIE Victoria The ordering physician of this order is CHRIS Patterson us Mackenzie Rodriguez DO IM OB US PROCEDURES Final Resul t * [...] EDT Mackenzie Michael DO CLINISYNC Final Result [facility] * (ABNORMAL) TBH CREATININE (05/18/2025 11:03 AM EDT) Only the most recent of2 resultswithin the time period is included. CREATININE 0.38(L) 0.55 - 1.02 mg/dL TBH TBH EGFR-AF [place]ER >60 >=60 mL/min/1.7 3m 2 TBH TBH EGFR-NON AF [place]ER >60 >=60 mL/min/1.7 3m 2 TBH 05/18/2025 11:0 3 AM EDT 05/18/2025 11:08 AM EDT Narrative CLINISYNC - 05/18/2025 11:50 AM EDT Mackenzie Michael DO CLINISYNC Final Result [facility] * SRMCOH PROTHROMBIN TIME INR W/O [...] DO CLINISYNC Final Result Performing Organization Address [facility] Co de Phone Number [facility] * [facility] AST (05/18/2025 11:03 AM EDT) Only the most recent of2 resultswithin the time period is included. ASPARTATE AMINO TRANSFERASE 18 15 - 37 U/L TB 05/18/2025 11:0 3 AM EDT 05/18/2025 11:08 AM EDT Narrative CLINISYNC - 05/18/2025 11:50 AM EDT Mackenzie Michael DO CLINISYNC Final Result Performing Organization Address [facility] Co de Phone Number [facility] * [facility] APTT (05/18/2025 11:03 AM EDT) Only the most recent of2 resultswithin the time period is included. PARTIAL THROMBOPLASTIN TIME 25.6 22.3 - 36.2 sec TB 05/18/2025 11:0 3 AM EDT 05/18/2025 11:08 AM EDT Narrative CLINISYNC - 05/18/2025 11:29 AM EDT Mackenzie Michael DO CLINISYNC Final Result Performing Organization Address [facility] Co de Phone Number [facility] * ALL URIC ACID (05/18/2025 11:03 AM EDT) Only the most recent of2 resultswithin the time period is included. URIC ACID 4.0 2.6 - 6.0 mg/dL TB 05/18/2025 11:0 3 AM EDT 05/18/2025 11:08 AM EDT Narrative CLINISYNC - 05/18/2025 11:50 AM EDT us Mackenzie Michael DO CLINISYNC Final Result CLINISYNC TB * ALL LDH (05/18/2025 11:03 AM EDT) Only the most recent of2 resultswithin the time period is included. Pathologist [facility] LACTATE DEHYDROGENASE 147 81 - 234 U/L TBH 05/18/2025 11:0 3 AM EDT 05/18/2025 11:08 AM EDT Narrative CLINISYNC - 05/18/2025 11:50 AM EDT [facility] Final Result Performing Organization Address City/[facility]/ZIP Co de Phone Number CLINISYNC [facility] * (ABNORMAL) ALL CBC WITH AUTO DIFF (05/18/2025 11:03 AM EDT) Only the most recent of3 resultswithin the time period is included. Pathologist [facility] TBH WBC 15.0(H) 4.0 - 11.0 10 3/uL TBH TBH RBC 4.17(L) 4.20 - 5.40 10 6/uL TBH TBH HGB 13.3 12.0 - 16.0 g/dL TB TB HCT 38.1 36.0 - 48.0 % TBH TBH MCV 91.4 81.0 - 99.0 fL TBH TBH MCH 31.9 26.7 - 34.0 pg TBH TBH MCHC 34.9 29.9 - 35.2 g/dL TB TBH RDW [...] us Mackenzie Michael DO CLINISYNC Final Result [facility] * ALL BUN (05/18/2025 11:03 AM EDT) Only the most recent of2 resultswithin the time period is included. BLOOD UREA NITROGEN 9.0 7.0 - 18.0 mg/dL TBH 05/18/2025 11:0 3 AM EDT 05/18/2025 11:08 AM EDT Narrative CLINISYNC - 05/18/2025 11:50 AM EDT us Mackenzie Michael DO [facility] * US OB GROWTH (05/04/2025 12:08 PM EDT) Anatomical Region Laterality Modality Other 05/04/2025 12:0 8 PM EDT Narrative 05/04/2025 12:11 PM EDT The [address] [address] Ultrasound Report Signed Patient: VIMAL FUNES MR#: [id number] : 2000 Acct:[id number] Age/Sex: 25 / F ADM Date: 05/04/25 Loc: [facility] 250-[address]: Rossana Leach Ordering Physician: Rossana Leach Date of Service: 05/04/25 Procedure(s): US OB growth Accession Number(s): [id number] cc: Rossana Leach; [place] [address] Patient Name: VIMAL FUNES MRN: [id number]:[id number] date: 2000 Sex: F Assigned Patient Location: [facility] Current Patient Location: [facility] Accession/Order Number: [id number] Exam Date: 05/04/2025 12:06 Report Date: 05/04/2025 [...] Jr., D.O. 05/04/2025 12:08 PM Dictation Location: [place] Electronically authenticated by: [id number] Y Date: 05/04/2025 12:08 Dictated By: Bulmaro Arias M.D. Signed By: 05/04/25 1211 DD/ 1208 TD/TT: Separator Tender: Procedure Note Radiology, Radiologist, - 05/04/2025 [place] [address] Ultrasound Report Signed Patient: VIMAL FUNES MMR#: [id number] : 2000Acct:[id number] Age/Sex: 25 / FADM Date: 05/04/25 Loc: [facility] 250-[address]: Rossana Leach Ordering Physician: Rossana Leach Date of Service: 05/04/25 Procedure(s): US OB growth Accession Number(s): [id number] cc: Rossana Leach; [place] [address] Patient Name: VIMAL FUNES MRN: [facility]:[id number] date: 2000 Sex: F Assigned Patient Location: [facility] Current Patient Location: [facility] Accession/Order Number: [id number] Exam Date: 05/04/2025 12:06 Report Date: 05/04/2025 [...] Jr., D.O. 05/04/2025 12:08 PM Dictation Location: [place] [address] Electronically authenticated by: [id number] Y Date: 2:08 Dictated By: Bulmaro Arias M.D. Signed By:05/04/25 1211 DD/ 1208 TD/TT: Separator Tender: Rossana BISWAS [facility] IMAGING Final Result * (ABNORMAL) GLUCOSE TOLERANCE 3 HOUR (05/04/2025 7:23 AM EDT) GLUCOSE TOLERANCE 3 HOUR (H) mg/dL TB Comment: GLU FAST 108H (<95) Col: 05/04/25 0723 GLU 1HR 234H (<180) Col: 05/04/25 0826 GLU 2HR 186H (<155) Col: 05/04/25 0927 GLU 3HR 133 (<140) Col: 05/04/25 1028 05/04/2025 7:23 AM EDT 05/04/2025 7:38 AM EDT Narrative CLINISYNC - 05/04/2025 10:50 AM EDT us Rossana BISWAS LAB BLOOD ORDERABLES Final Resul t CLINISYNC TB * (ABNORMAL) GLUCOSE 1 HOUR (04/27/2025 10:05 AM EDT) Pathologist [facility] GLUCOSE 1 HOUR 171(H) <130 mg/dL TBH 04/27/2025 10:0 5 AM EDT 04/27/2025 10:06 AM EDT Narrative CLINISYNC - 04/27/2025 10:45 AM EDT us Rossana BISWAS LAB BLOOD ORDERABLES Final Resul t CLINISYNC TB from Last 3 Months Insurance [facility] [employer] Care Teams Cut Roll Machine Offbearer Relationship Specialty Start Date End Date Unallocated, Noms Provider, [address] [place] [address] PCP - General Family Medicine 08/03/24
--- OUTSIDE RECORDS SUMMARY | 2025-06-29 11:07 | XMS_ITS | Encounter Summary ---
Author Organization [facility] Address [address] [place] [address] Care Team Providers Care Economic Analyst Name Role Phone Unallocated, [facility] Provider Primary Care Provi krissy Encounter Details Date Type Department Care Team (Late st Contact Info) Description 06/04/2025 External Result Encounter [facility] [address] [place] [address] Mackenzie Rodriguez DO [facility] [address] [place], [facility] Social History Tobacco [...] Routine [facility] [place] [address] [place] [address] Megan Aranda [address] [facility] [address] [place] [address] documented as of this encounter Procedures [...] CELIS : 2000 SEX: F Accession Number: [id number] ORDERING PHYSICIAN: CHRIS MARTIN REFERRING PHYSICIAN: MACKENZIE RODRIGUEZ Coding ----- --------- Procedures 88552: Ultrasound, uterus, real time with image documentation, and maternal evaluation plus detailed anatomic examination, transabdominal approach;single or first gestation 33788: Doppler velocimetry, ; umbilical artery Indication ----- [...] EFW (oz) 4 oz EFW by: Hadlock ([id number]) Extended Tibia 49.0 mm 29w 3d <1% Khanh Foot 56.8 mm <1% Chitty Supervisor Plasma 4.6 mm CM 6.2 mm 19% Nicolaides [...] bone. Maxilla. Mandible. Orbits. Heart/Thorax: LVOT view. 5-squbjo-lhewxay view. Situs. Ductal arch view. Cardiac position. [...] 4.2 cm. Recommendations ----- --------- Please see [facility] documentation from today. Subsequent follow up or other follow up as clinically determined by primary OB provider unless otherwise specified by [facility]. Results forwarded to ordering provider so they can follow up with the patient as necessary. The copy-to physician of this order is MACKENZIE Victoria The ordering physician of this order is CHRIS Patterson Procedure Note Radiology, Radiologist, - 06/04/2025 THIS EXAM WAS PERFORMED AT [facility] NAME: MARIN CELIS : 2000 SEX: F Accession Number: [id number] ORDERING PHYSICIAN: CHRIS MARTIN REFERRING PHYSICIAN: MACKENZIE RODRIGUEZ Coding ----- --------- Procedures [id number]: Ultrasound, uterus, real time with imagedocumentation, and maternal evaluation plus detailed anatomic examination, transabdominalapproach;single or first gestation 50169: Doppler velocimetry, ; umbilical artery Indication ----- [...] EFW (oz) 4 oz EFW by: Hadlock ([id number]-FL) Extended Tibia 49.0 mm 29w 3d <1% Khanh Foot 56.8 mm <1% Chitty Supervisor Plasma 4.6 mm CM 6.2 mm 19% Nicolaides [...] bone. Maxilla. Mandible. Orbits. Heart/Thorax: LVOT view. 3-ngstbb-wbqzkka view. Situs. Ductal arch view.Cardiac position. Cardiac [...] on filedocumented in this encounter Care Teams Economic Analyst Relationship Specialty Start Date End Date Unallocated, [facility] [place], [address] [place], [place] [id number] PCP - General Family Medicine 08/03/24 documented as of this encounter
--- NOTE | 2025-06-29 11:08 | US_ITS ---
[address] [address] Patient Name: VIMAL PIZANO MRN: [id number] date: 2000 Sex: F Assigned Patient Location: US Current Patient Location: Accession/Order Number: [id number] Exam Date: 06/29/2025 11:10 Report Date: 06/29/2025 12:49 At the request of: COLLIN LEACH Procedure: US OB BPP w non-stress Biophysical profile. Reason for exam: Gestational diabetes COMPARISON: 06/22/2025 TECHNIQUE: Transabdominal imaging of the gravid uterus was obtained. FINDINGS: The retort furnace helper reports a BPP of 8 out of 8. DANYA is normal at 11.0 cm. heart rate 148 bpm US/US OB BPP w non-stress IMPRESSION: BPP 8 out of 8. Impression dictated by: Bulmaro Arias Jr., D.O. 06/29/2025 12:49 PM Dictation Location: [facility] Electronically authenticated by: [id number] Y Date: 06/29/2025 12:49
[2025-06-29 11:45] VITALS: BP 137/76; PULSE 80
== END 2025-06-29 12:15 | disposition home or self-care (01) ==
LOC: US 11:05 → FBC 11:12
PROVIDERS: PCP Nurse Practitioner Family; Visit Provider Physician Assistant
DX: O13.3 Gestational [pregnancy-induced] hypertension without significant proteinuria, third trimester (principal); O24.419 Gestational diabetes mellitus in pregnancy, unspecified control; Z3A.36 36 weeks gestation of pregnancy
CPT/HCPCS: 76818

== ENCOUNTER 2025-07-03 16:49 | Outpatient (OUT) | payer BC, OTHER, SELFPAY ==
--- OUTSIDE RECORDS SUMMARY | 2025-07-03 16:55 | XMS_ITS | CCD ---
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 Name Role Phone MICHAEL ., DR MANN Consulting Unavailable MICHAEL ., DR MANN Admitting Unavailable MICHAEL ., DR MANN Attending Unavailable MISC, DR DOMINIQUE Primary Care Unavailable MICHAEL ., DR MANN Admitting Unavailable MICHAEL ., DR MANN Attending Unavailable MISC, DR DOMINIQUE Primary Care Unavailable MICHEAL ., DR MANN Consulting Unavailable MISC, DR [...] Unavailable MISC, DR DOMINIQUE Primary Care Unavailable [place], DR COCO Danielle Consulting Unavailable MICHAEL ., DR MANN Consulting Unavailable MICHAEL ., DR MANN Admitting Unavailable MICHAEL ., DR MANN Attending Unavailable MISC, DR DOMINIQUE Primary Care Unavailable MICHAEL ., DR MANN Consulting Unavailable MICHAEL ., DR MANN Admitting Unavailable MICHAEL ., DR MANN Attending Unavailable MISC, DR DOMINIQUE Primary Care Unavailable [place], DR COCO Danielle Consulting Unavailable MICHAEL ., [...] Jennifer Huston Unavailable JEFFERY Huston Attending Provider [phone] Vaishali Zapata MD Primary Care Provider Unavai [...] RAMOS Attending Unavailable MICHAEL, JOSE Attending Unavailable NIMESH ARANDA Attending Unavailable MICHAEL, JOSE Attending Unavailable RACHEL, [...] unspecified] Onset: 06-18-2025 Episodic Other complications of (2 sources) Maternal care for other known or suspected [...] Test Name Value Interpretation Reference Range Facility OB BPP W NON-STRESS on 06-29-2025 [place] [address] Ultrasound Report Signed Patient: VIMAL FUNES MR#: [id number] : 2000 Acct:[id number] Age/Sex: 25 / F ADM Date: 06/29/25 Loc: US Attending Dr: Rossana Ramos Ordering Physician: Rossana Ramos Date of Service: 06/29/25 Procedure(s): US OB BPP w non-stress Accession Number(s): [id number] cc: Rossana Ramos; JENNIFER SEE [place] [id number] Patient Name: VIMAL FUNES MRN: [facility]:[id number] date: 2000 Sex: F Assigned Patient Location: US Current Patient Location: Accession/Order Number: [id number] Exam Date: 06/29/2025 11:10 Report Date: 06/29/2025 12:49 At the request of: ROSSANA RAMOS Procedure: US OB BPP w non-stress Biophysical profile. Reason for exam: Gestational diabetes COMPARISON: 06/22/2025 TECHNIQUE: Transabdominal imaging of the gravid uterus was obtained. 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 DANYA is normal at 11.0 cm. heart rate 148 bpm US/US OB BPP w non-stress IMPRESSION: BPP 8 out of 8. Impression dictated by: Bulmaro Arias Jr., D.O. 06/29/2025 12:49 PM Dictation Location: [place] [address] Electronically authenticated by: [id number] Y Date: 06/29/2025 12:49 Dictated By: Bulmaro Arias M.D. Signed By: 06/29/25 1252 DD/ 1249 TD/TT: Brace Maker: [facility] Radiology, Radiologist, MD - 06/29/2025 [place] [address] Ultrasound Report Signed Patient: VIMAL FUNES MR#: [id number] : 2000 Acct:[id number] Age/Sex: 25 / F ADM Date: 06/29/25 Loc: US Attending Dr: Rossana Ramos Ordering Physician: Rossana Ramos Date of Service: 06/29/25 Procedure(s): US OB BPP w non-stress Accession Number(s): [id number] cc: Rossana Ramos; JENNIFER SEE [place] [id number] Patient Name: VIMAL FUNES MRN: [facility]:[id number] date: 2000 Sex: F Assigned Patient Location: US Current Patient Location: Accession/Order Number: [id number] Exam Date: 06/29/2025 11:10 Report Date: 06/29/2025 12:49 At the request of: ROSSANA RAMOS Procedure: US OB BPP w non-stress Biophysical profile. Reason for exam: Gestational diabetes COMPARISON: 06/22/2025 TECHNIQUE: Transabdominal imaging of the gravid uterus was obtained. 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 DANYA is normal at 11.0 cm. heart rate 148 bpm US/US OB BPP w non-stress IMPRESSION: BPP 8 out of 8. Impression dictated by: Bulmaro Arias Jr., D.O. 06/29/2025 12:49 PM Dictation Location: [facility] Electronically authenticated by: [id number] Y Date: 06/29/2025 12:49 Dictated By: Bulmaro Arias M.D. Signed By: 06/29/25 1252 DD/ 1249 TD/TT: Brace Maker: [facility] Radiology Study observation (narrative) [facility] US OB BPP W NON-STRESS Ordered By: Radiologist Radiology on 06-29-2025 [facility] Work Phone: Urinalysis macro (dipstick) panel (U)on 06-26-2025 Bilirubin, UA Negative Negative - 4(70) +++ mg/dL [facility] Blood, UA Negative Negative - 50 Jason/mcL [facility] Clarity, UA Clear [facility] re Color, UA Yellow [facility] [employer] Glucose, UA Negative Negative - 1999(110) ++++ mg/dL [facility] Interpretation and review of laboratory results Normal [facility] Ketones, UA Negative Negative - 160(16) ++++ mg/dL [facility] Leukocytes, UA Negative Negative - 500+++ Carlos/mcL [facility] Nitrite, UA Negative Negative - Positive [facility] pH, UA 6 5 - 9 [facility] [employer] [facility] Protein, UA 1+ Negative - 2000(20) ++++ mg/dL [facility] Spec Grav, UA 1.025 1 - 1.03 [facility] Urobilinogen, UA 1.0 0.2 - 12 mg/dL [facility] BPP W NON-STRESS on 06-22-[address] [address] Ultrasound Report Signed Patient: VIMAL FUNES MR#: [id number] : 2000 Acct:[id number] Age/Sex: 25 / F ADM Date: 06/22/25 Loc: US Attending Dr: Rossana Ramos Ordering Physician: Rossana Ramos Date of Service: 06/22/25 Procedure(s): US OB BPP w non-stress Accession Number(s): [id number] cc: Rossana Ramos; JENNIFER SEE [address] [address] Patient Name: VIMAL FUNES MRN: [facility]:[id number] date: 2000 Sex: F Assigned Patient Location: [facility] Current Patient Location: Accession/Order Number: [id number] Exam Date: 06/22/2025 10:52 Report Date: 06/22/2025 [...] Acharya M.D. 06/22/2025 7:28 PM Dictation Location: [place] [address] Electronically authenticated by: [id number] Y Date: 06/22/2025 19:28 Dictated By: Heriberto Acharya M.D. Signed By: 06/22/251930 DD/ 27 TD/TT: Brace Maker: [facility] Radiology, Radiologist, - 06/22/[address] [address] Ultrasound Report Signed Patient: VIMAL FUNES MR#: [id number] : 2000 Acct:[id number] Age/Sex: 25 / F ADM Date: 06/22/25 Loc: US Attending Dr: Rossana Ramos Ordering Physician: Rossana Ramos Date of Service: 06/22/25 Procedure(s): US OB BPP w non-stress Accession Number(s): [id number] cc: Rossana Ramos; JENNIFER SEE [place] [address] Patient Name: VIMAL FUNES MRN: [facility]:[id number] date: 2000 Sex: F Assigned Patient Location: [facility] Current Patient Location: Accession/Order Number: [id number] Exam Date: 06/22/2025 10:52 Report Date: 06/22/2025 [...] Acharya M.D. 06/22/2025 7:28 PM Dictation Location: [place] [address] Electronically authenticated by: [id number] Y Date: 06/22/2025 19:28 Dictated By: Heriberto Acharya M.D. Signed By: 06/22/251930 DD/ 27 TD/TT: Brace Maker: [facility] Radiology Study observation (narrative) [facility] US OB BPP W NON-STRESS Ordered By: Radiologist Radiology on 06-22-2025 [facility] Work Phone: Urinalysis macro (dipstick) panel (U)on 06-19-2025 Bilirubin, UA Negative Negative - 4(70) +++ mg/dL [facility] Blood, UA Negative Negative - 50 Jason/mcL [facility] Clarity, UA Cloudy [facility] re Color, UA Yellow [facility] Glucose, UA 1+ Negative - 1999(110) ++++ mg/dL [facility] Interpretation and review of laboratory results Abnormal [facility] Ketones, UA Negative Negative - 160(16) ++++ mg/dL [facility] Leukocytes, UA Negative Negative - 500+++ Carlos/mcL [facility] Nitrite, UA Negative Negative - Positive [facility] pH, UA 6 5 - 9 [facility] Protein, UA 1+ Negative - 1999(20) ++++ mg/dL [facility] Spec Grav, UA 1.015 1 - 1.03 [facility] Urobilinogen, UA 1.0 0.2 - 12 mg/dL [facility] OB BPP W NON-STRESS on 06-15-2025 [place] [address] Ultrasound Report Signed Patient: VIMAL FUNES MR#: [id number] : 2000 Acct:[id number] Age/Sex: 25 / F ADM Date: 06/15/25 Loc: [facility] 251-[address]: Rossana Ramos Ordering Physician: Rossana Ramos Date of Service: 06/15/25 Procedure(s): US OB BPP w non-stress Accession Number(s): [id number] cc: Rossana Ramos; JENNIFER SEE [address] [address] Patient Name: VIMAL FUNES MRN: [facility]:[id number] date: 2000 Sex: F Assigned Patient Location: Current Patient Location: US Accession/Order Number: [id number] Exam Date: 06/15/2025 11:07 Report Date: 06/15/2025 12:51 At the request of: ROSSANA RAMOS Procedure: US OB BPP w non-stress Biophysical profile. Reason for exam: Gestational diabetes COMPARISON: 06/08/2025 TECHNIQUE: Transabdominal imaging of the gravid uterus was obtained. 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 DANYA is normal at 11.0 cm. heart rate 136 bpm. US/US OB BPP w non-stress IMPRESSION: BPP 8 out of 8. Impression dictated by: Amadou Carias M.D. 06/15/2025 12:51 PM Dictation Location: [place] [address] Electronically authenticated by: [id number] Y Date: 06/15/2025 12:51 Dictated By: Amadou Carias M.D. Signed By: 06/15/25 1254 DD/ 125 TD/TT: Brace Maker: [facility] Radiology, Radiologist, MD - 06/15/2025 [place] [address] Ultrasound Report Signed Patient: VIMAL FUNES MR#: [id number] : 2000 Acct:[id number] Age/Sex: 25 / F ADM Date: 06/15/25 Loc: [facility] 251-[address]: Rossana Ramos Ordering Physician: Rossana Ramos Date of Service: 06/15/25 Procedure(s): US OB BPP w non-stress Accession Number(s): [id number] cc: JENNIFER Watkins The [place] [phone] Patient Name: VIMAL FUNES MRN: [facility]:[id number] date: 2000 Sex: F Assigned Patient Location: US Current Patient Location: US Accession/Order Number: [id number] Exam Date: 06/15/2025 11:07 Report Date: 06/15/2025 12:51 At the request of: ROSSANA RAMOS Procedure: US OB BPP w non-stress Biophysical profile. Reason for exam: Gestational diabetes COMPARISON: 06/08/2025 TECHNIQUE: Transabdominal imaging of the gravid uterus was obtained. 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 DANYA is normal at 11.0 cm. heart rate 136 bpm. US/US OB BPP w non-stress IMPRESSION: BPP 8 out of 8. Impression dictated by: Amadou Carias M.D. 06/15/2025 12:51 PM Dictation Location: [place] [address] Electronically authenticated by: [id number] Y Date: 06/15/2025 12:51 Dictated By: Amadou Carias M.D. Signed By: 06/15/25 1254 DD/ 1251 TD/TT: Brace Maker: [facility] Radiology Study observation (narrative) [facility] US OB BPP W NON-STRESS Ordered By: Radiologist Radiology on 06-15-2025 [facility] Work Phone: Urinalysis macro (dipstick) panel (U)on 06-12-2025 Bilirubin, UA Negative Negative - 4(70) +++ mg/dL [facility] Blood, UA Negative Negative - 50 Jason/mcL [facility] Clarity, UA Clear [facility] re Color, UA Yellow [facility] [employer] Glucose, UA Positive Negative - 1999(110) ++++ mg/dL [facility] Interpretation and review of laboratory results Abnormal [facility] Ketones, UA Negative Negative - 160(16) ++++ mg/dL [facility] Leukocytes, UA Negative Negative - 500+++ Carlos/mcL [facility] Nitrite, UA Negative Negative - Positive [facility] pH, UA 6.5 5 - 9 [facility] [facility] Protein, UA Negative Negative - 1999(20) ++++ mg/dL [facility] Spec Grav, UA 1.015 1 - 1.03 [facility] Urobilinogen, UA 1.0 0.2 - 12 mg/dL [facility] OB BPP W NON-STRESS on 06-08-[address] [address] Ultrasound Report Signed Patient: VIMAL FUNES MR#: [id number] : 2000 Acct:[id number] Age/Sex: 25 / F ADM Date: 06/08/25 Loc: US Attending Dr: Rossana Ramos Ordering Physician: Rossana Ramos Date of Service: 06/08/25 Procedure(s): US OB BPP w non-stress Accession Number(s): [id number] cc: JENNIFER Watkins The [address] [id number] Patient Name: VIMAL FUNES MRN: [facility]:[id number] date: 2000 Sex: F Assigned Patient Location: [facility] Current Patient Location: Accession/Order Number: [id number] Exam Date: 06/08/2025 11:01 Report Date: 06/08/2025 [...] Knapp M.D. 06/08/2025 12:10 PM Dictation Location: [place] [address] Electronically authenticated by: [id number] Y Date: 06/08/2025 12:10 Dictated By: Shivam Knapp D.O. Signed By: 06/08/25 1213 DD/ 1210 TD/TT: Brace Maker: [facility] Radiology, Radiologist, MD - 06/08/2025 [place] [address] Ultrasound Report Signed Patient: VIMAL FUNES MR#: [id number] : 2000 Acct:[id number] Age/Sex: 25 / F ADM Date: 06/08/25 Loc: US Attending Dr: Rossana Ramos Ordering Physician: Rossana Ramos Date of Service: 06/08/25 Procedure(s): US OB BPP w non-stress Accession Number(s): [id number] cc: JENNIFER Watkins [address] [phone] Patient Name: VIMAL FUNES MRN: [id number] date: 2000 Sex: F Assigned Patient Location: [facility] Current Patient Location: Accession/Order Number: [id number] Exam Date: 06/08/2025 11:01 Report Date: 06/08/2025 [...] Knapp M.D. 06/08/2025 12:10 PM Dictation Location: [place] [address] Electronically authenticated by: [id number] Y Date: 06/08/2025 12:10 Dictated By: Shivam Knapp D.O. Signed By: 06/08/25 1213 DD/ 1210 TD/TT: Brace Maker: [facility] Radiology Study observation (narrative) [facility] US OB BPP W NON-STRESS Ordered By: Radiologist Radiology on 06-08-2025 [facility] [employer] Work Phone: US OB BPP W NON-STRESS on 06-01-2025 [place] [id number] Ultrasound Report Signed Patient: VIMAL FUNES MR#: [id number] : 2000 Acct:[id number] Age/Sex: 25 / F ADM Date: 06/01/25 Loc: US Attending Dr: Rossana Ramos Ordering Physician: Rossana Ramos Date of Service: 06/01/25 Procedure(s): US OB BPP w non-stress Accession Number(s): [id number] cc: JENNIFER Watkins [address] [address] Patient Name: VIMAL FUNES MRN: [facility]:[id number] date: 2000 Sex: F Assigned Patient Location: Current Patient Location: Accession/Order Number: [id number] Exam Date: 06/01/2025 10:59 Report Date: 06/01/2025 12:03 At the request of: ROSSANA RAMOS Procedure: US OB BPP w non-stress Biophysical profile. Reason for exam: Gestational diabetes COMPARISON: 05/25/2025 TECHNIQUE: Transabdominal imaging of the gravid uterus was obtained. 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 DANYA is normal at 11.0 cm. Cardiac activity was visualized by the real estate internship per tech note. No heart rate was documented. US/US OB BPP w non-stress IMPRESSION: BPP 8 out of 8. Impression dictated by: Bulmaro Arias Jr., D.O. 06/01/2025 12:03 PM Dictation Location: [facility] Electronically authenticated by: [id number] Y Date: 06/01/2025 12:03 Dictated By: Bulmaro Arias M.D. Signed By: 06/01/25 1206 DD/ 1203 TD/TT: Brace Maker: [facility] Radiology, Radiologist, MD - 06/01/[address] [address] Ultrasound Report Signed Patient: VIMAL FUNES MR#: [id number] : 2000 Acct:[id number] Age/Sex: 25 / F ADM Date: 06/01/25 Loc: US Attending Dr: Rossana Ramos Ordering Physician: Rossana Ramos Date of Service: 06/01/25 Procedure(s): US OB BPP w non-stress Accession Number(s): [id number] cc: Rossana Ramos; JENNIFER SEE The [address] [address] Patient Name: VIMAL FUNES MRN: [facility]:[id number] date: 2000 Sex: F Assigned Patient Location: Current Patient Location: Accession/Order Number: [id number] Exam Date: 06/01/2025 10:59 Report Date: 06/01/2025 12:03 At the request of: ROSSANA RAMOS Procedure: US OB BPP w non-stress Biophysical profile. Reason for exam: Gestational diabetes COMPARISON: 05/25/2025 TECHNIQUE: Transabdominal imaging of the gravid uterus was obtained. 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 DANYA is normal at 11.0 cm. Cardiac activity was visualized by the real estate internship per tech note. No heart rate was documented. US/US OB BPP w non-stress IMPRESSION: BPP 8 out of 8. Impression dictated by: Bulmaro Arias Jr., D.O. 06/01/2025 12:03 PM Dictation Location: [place] [address] Electronically authenticated by: [id number] Y Date: 06/01/2025 12:03 Dictated By: Bulmaro Arias M.D. Signed By: 06/01/25 1206 DD/ 1203 TD/TT: Brace Maker: [facility] Radiology Study observation (narrative) [facility] US OB BPP W NON-STRESS Ordered By: Radiologist Radiology on 06-01-2025 [facility] [employer] Work Phone: Urinalysis macro (dipstick) panel (U)on 05-28-2025 Bilirubin, UA Negative Negative - 4(70) +++ mg/dL [facility] Blood, UA Negative Negative - 50 Jason/mcL [facility] Clarity, UA Clear [facility] [employer] re Color, UA Yellow [facility] [employer] Glucose, UA Negative Negative - 1999(110) ++++ mg/dL [facility] Interpretation and review of laboratory results Normal [facility] Ketones, UA Negative Negative - 160(16) ++++ mg/dL [facility] Leukocytes, UA Negative Negative - 500+++ Carlos/mcL [facility] Nitrite, UA Negative Negative - Positive [facility] pH, UA 6.5 5 - 9 [facility] [employer] Protein, UA Negative Negative - 1999(20) ++++ mg/dL [facility] Spec Grav, UA 1.005 1 - 1.03 [facility] care Urobilinogen, UA 1.0 0.2 - 12 mg/dL [facility] US OB BPP W NON-STRESS on 05-25-2025 [place] [address] Ultrasound Report Signed Patient: VIMAL FUNES MR#: [id number] : 2000 Acct:[id number] Age/Sex: 25 / F ADM Date: 05/25/25 Loc: US Attending Dr: Rossana Ramos Ordering Physician: Rossana Ramos Date of Service: 05/25/25 Procedure(s): US OB BPP w non-stress Accession Number(s): [id number] cc: Rossana Ramos; JENNIFER SEE [place] [address] Patient Name: VIMAL FUNES MRN: [id number]:[id number] date: 2000 Sex: F Assigned Patient Location: [facility] Current Patient Location: Accession/Order Number: [id number] Exam Date: 05/25/2025 08:21 Report Date: 05/25/2025 [...] Acharya M.D. 05/25/2025 11:13 AM Dictation Location: [place] [address] Electronically authenticated by: [id number] Y Date: 05/25/2025 11:13 Dictated By: Heriberto Acharya M.D. Signed By: 05/25/25 1116 DD/ 1113 TD/TT: Brace Maker: [facility] Radiology, Radiologist, - 05/25/2025 [place] [address] Ultrasound Report Signed Patient: VIMAL FUNES MR#: [id number] : 2000 Acct:[id number] Age/Sex: 25 / F ADM Date: 05/25/25 Loc: US Attending Dr: Rossana Ramos Ordering Physician: Rossana Ramos Date of Service: 05/25/25 Procedure(s): US OB BPP w non-stress Accession Number(s): [id number] cc: Rossana Ramos; JENNIFER SEE [place] [phone] Patient Name: VIMAL FUNES MRN: [facility]:[id number] date: 2000 Sex: F Assigned Patient Location: [facility] Current Patient Location: Accession/Order Number: [id number] Exam Date: 05/25/2025 08:21 Report Date: 05/25/2025 [...] Acharya M.D. 05/25/2025 11:13 AM Dictation Location: [place] [address] Electronically authenticated by: [id number] Y Date: 05/25/2025 11:13 Dictated By: Heriberto Acharya M.D. Signed By: 05/25/25 1116 DD/ 111 TD/TT: Brace Maker: [facility] Radiology Study observation (narrative) [facility] US OB BPP W NON-STRESS Ordered By: Radiologist Radiology on 05-25-2025 [facility] Work Phone: Urinalysis macro (dipstick) panel (U)on 05-22-2025 Bilirubin, UA Negative Negative - 4(70) +++ mg/dL [facility] Blood, UA Negative Negative - 50 Jason/mcL [facility] Clarity, UA Clear [facility] re Color, UA Yellow [facility] e Glucose, UA Negative Negative - 1999(110) ++++ mg/dL [facility] Interpretation and review of laboratory results Normal [facility] Ketones, UA Negative Negative - 160(16) ++++ mg/dL [facility] Leukocytes, UA Negative Negative - 500+++ Carlos/mcL [facility] Nitrite, UA Negative Negative - Positive [facility] pH, UA 6 5 - 9 [facility] [employer] Protein, UA Negative Negative - 1999(20) ++++ mg/dL [facility] Spec Grav, UA 1.01 1 - 1.03 [facility] Urobilinogen, UA 0.2 0.2 - 12 mg/dL [facility] TBH TOTAL PROTEIN 24 HOUR UR INEon 05-20-2025 Interpretation and review of laboratory results Abnormal [facility] Protein (U) [Mass/Vol] 6.7 mg/dL NINF - 11.9 mg/dL [facility] TBH TOTAL PROTEIN 24 HOUR URINE 194.3 High [facility] TOTAL VOLUME 24 HOUR URINE 2900 mL/24hr [facility] ALL CBC WITH AUTO DIFFon BASOPHILS ABSOLUTE AUTO 0 [facility] Basophils/100 WBC (Bld) 0.1 % Low 0.2 - 2.0 % [facility] Eosinophils/100 WBC (Bld) 1.7 % 0.9 - 7.0 % [facility] Erythrocyte distribution width (RBC) [Ratio] 12.7 % 11.0 - 15.0 % [facility] Hematocrit (Bld) [Volume fraction] 38.1 % 36.0 - 48.0 % [facility] Hemoglobin (Bld) [Mass/Vol] 13.3 g/dL 12.0 - 16.0 g/dL [facility] IMMATURE GRANULOCYTES ABS AUTO 0.06 High [facility] Immature granulocytes/100 WBC (Bld) 0.4 % 0.0 - 0.5 % [facility] Interpretation and review of laboratory results Abnormal [facility] LYMPHOCYTES ABSOLUTE AUTO 1.4 [facility] Lymphocytes/100 WBC (Bld) 9 % Low 20.5 - 60.0 % [facility] MCH (RBC) [Entitic mass] 31.9 pg 26.7 - 34.0 pg [facility] MCHC (RBC) [Mass/Vol] 34.9 g/dL 29.9 - 35.2 g/dL [facility] MCV (RBC) [Entitic vol] 91.4 fL 81.0 - 99.0 fL [facility] MONOCYTES ABSOLUTE AUTO 0.7 [facility] Monocytes/100 WBC (Bld) 4.7 % 1.7 - 12.0 % [facility] NEUTROPHILS ABSOLUTE AUTO 12.6 High [facility] Neutrophils/100 WBC (Bld) 84.1 % High 43.0 - 75.0 % [facility] Platelet mean volume (Bld) [Entitic vol] 11.2 fL 9.5 - 13.5 fL [facility] EO # 0.3 [facility] PLT 223 [facility] RBC 4.17 Low [facility] WBC 15 High [facility] US OB BPP W NON-STRESS on 05-18-2025 [place] [id number] Ultrasound Report Signed Patient: VIMAL FUNES MR#: [id number] : 2000 Acct:[id number] Age/Sex: 25 / F ADM Date: 05/18/25 Loc: US Attending Dr: Rossana Ramos Ordering Physician: Rossana Ramos Date of Service: 05/18/25 Procedure(s): US OB BPP w non-stress Accession Number(s): [id number] cc: Rossana Ramos; JENNIFER SEE [address] [address] Patient Name: VIMAL FUNES MRN: [facility]:[id number] date: 2000 Sex: F Assigned Patient Location: [facility] Current Patient Location: Accession/Order Number: [id number] Exam Date: 05/18/2025 11:16 Report Date: 05/18/2025 [...] Acharya M.D. 05/18/2025 5:08 PM Dictation Location: [place] [address] Electronically authenticated by: [id number] Y Date: 05/18/2025 17:08 Dictated By: Heriberto Acharya M.D. Signed By: 05/18/252016 DD/ 07 TD/TT: Brace Maker: [facility] Radiology, Radiologist, MD - 05/18/2025 [place] [address] Ultrasound Report Signed Patient: VIMAL FUNES MR#: [id number] : 2000 Acct:[id number] Age/Sex: 25 / F ADM Date: 05/18/25 Loc: US Attending Dr: Rossana Ramos Ordering Physician: Rossana Ramos Date of Service: 05/18/25 Procedure(s): US OB BPP w non-stress Accession Number(s): [id number] cc: Rossana Ramos; JENNIFER SEE The [address] [address] Patient Name: VIMAL FUNES MRN: [facility]:[id number] date: 2000 Sex: F Assigned Patient Location: [facility] Current Patient Location: Accession/Order Number: [id number] Exam Date: 05/18/2025 11:16 Report Date: 05/18/2025 [...] Acharya M.D. 05/18/2025 5:08 PM Dictation Location: [employer] TechnologiesOVERLAKE HOSPITAL MEDICAL CENTERNival Electronically authenticated by: [id number] Y Date: 05/18/2025 17:08 Dictated By: Heriberto Acharya M.D. Signed By: 05/18/252016 DD/ 07 TD/TT: Brace Maker: [facility] Radiology Study observation (narrative) [facility] US OB BPP W NON-STRESS Ordered By: Radiologist Radiology on 05-18-2025 [facility] Work Phone: Glucose random or fasting- P OCTOrdered By: Sheridan Smallwood on 05-13-2025 External Glucose Fasting Or Random (Fbs) 80 [facility] US OB BPP W NON-STRESS on 05-11-[address] [address] Ultrasound Report Signed Patient: VIMAL FUNES MR#: [id number] : 2000 Acct:[id number] Age/Sex: 25 / F ADM Date: 05/11/25 Loc: [facility] 253-[address]: Rossana Ramos Ordering Physician: Rossana Ramos Date of Service: 05/11/25 Procedure(s): US OB BPP w non-stress Accession Number(s): [id number] cc: JENNIFER Watkins The [place] [address] Patient Name: VIMAL FUNES MRN: [facility]:[id number] date: 2000 Sex: F Assigned Patient Location: [facility] Current Patient Location: [facility] Accession/Order Number: [id number] Exam Date: 05/11/2025 12:01 Report Date: 05/11/2025 12:02 At the request of: ROSSANA RAMOS Procedure: US OB BPP w non-stress Biophysical profile. Reason for exam: Gestational diabetes COMPARISON: 05/04/2025 TECHNIQUE: Transabdominal imaging of the gravid uterus was obtained. 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 DANYA is normal at 11.9 cm. heart rate 138 bpm. US/US OB BPP w non-stress IMPRESSION: BPP 8 out of 8. Impression dictated by: Bulmaro Arias Jr., D.O. 05/11/2025 12:02 PM Dictation Location: [place] [address] Electronically authenticated by: [id number] Y Date: 05/11/2025 12:02 Dictated By: Bulmaro Arias M.D. Signed By: 05/11/25 1204 DD/ 1202 TD/TT: Brace Maker: [facility] Radiology, Radiologist, MD - 05/11/2025 [place] [address] Ultrasound Report Signed Patient: VIMAL FUNES MR#: [id number] : 2000 Acct:[id number] Age/Sex: 25 / F ADM Date: 05/11/25 Loc: [facility] 253-[address]: Rossana Ramos Ordering Physician: Rossana Ramos Date of Service: 05/11/25 Procedure(s): US OB BPP w non-stress Accession Number(s): [id number] cc: Rossana MANMER,JENNIFER [place] [address] Patient Name: VIMAL FUNES MRN: [facility]:[id number] date: 2000 Sex: F Assigned Patient Location: [facility] Current Patient Location: [facility] Accession/Order Number: [id number] Exam Date: 05/11/2025 12:01 Report Date: 05/11/2025 12:02 At the request of: ROSSANA RAMOS Procedure: US OB BPP w non-stress Biophysical profile. Reason for exam: Gestational diabetes COMPARISON: 05/04/2025 TECHNIQUE: Transabdominal imaging of the gravid uterus was obtained. 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 DANYA is normal at 11.9 cm. heart rate 138 bpm. US/US OB BPP w non-stress IMPRESSION: BPP 8 out of 8. Impression dictated by: Bulmaro Arias Jr., D.O. 05/11/2025 12:02 PM Dictation Location: [employer] Electronically authenticated by: [id number] Y Date: 05/11/2025 12:02 Dictated By: Bulmaro Arias M.D. Signed By: 05/11/25 1204 DD/ 1202 TD/TT: Brace Maker: [facility] [employer] Radiology Study observation (narrative) [facility] [employer] US OB BPP W NON-STRESS Ordered By: Radiologist Radiology on 05-11-2025 [facility] [employer] Work Phone: [facility] TOTAL PROTEIN 24 HOUR UR INEon 05-06-2025 TOTAL PROTEIN URINE RANDOM <6.0 NINF - 11.9 mg/dL [facility] [employer] TOTAL VOLUME 24 HOUR URINE 3700 mL/24hr [facility] [employer] CLINISYNC [facility] [employer] 2nd hr Glucose Tolerance 100 gm loadon 05-04-2025 Glucose Tolerance Test 2 Hour 186 [facility] ALL CBC WITH AUTO DIFFon BASOPHILS ABSOLUTE AUTO 0 [facility] [employer] Basophils/100 WBC (Bld) 0.2 % 0.2 - 2.0 % [facility] [employer] Eosinophils/100 WBC (Bld) 2.6 % 0.9 - 7.0 % [facility] Erythrocyte distribution width (RBC) [Ratio] 12.7 % 11.0 - 15.0 % [facility] Hematocrit (Bld) [Volume fraction] 39.5 % 36.0 - 48.0 % [facility] Hemoglobin (Bld) [Mass/Vol] 13.7 g/dL 12.0 - 16.0 g/dL [facility] IMMATURE GRANULOCYTES ABS AUTO 0.05 High [facility] Immature granulocytes/100 WBC (Bld) 0.4 % 0.0 - 0.5 % [facility] Interpretation and review of laboratory results Abnormal [facility] LYMPHOCYTES ABSOLUTE AUTO 1.6 [facility] Lymphocytes/100 WBC (Bld) 12.6 % Low 20.5 - 60.0 % [facility] MCH (RBC) [Entitic mass] 31.9 pg 26.7 - 34.0 pg [facility] MCHC (RBC) [Mass/Vol] 34.7 g/dL 29.9 - 35.2 g/dL [facility] MCV (RBC) [Entitic vol] 92.1 fL 81.0 - 99.0 fL [facility] MONOCYTES ABSOLUTE AUTO 0.6 [facility] Monocytes/100 WBC (Bld) 5 % 1.7 - 12.0 % [facility] NEUTROPHILS ABSOLUTE AUTO 9.9 High [facility] Neutrophils/100 WBC (Bld) 79.2 % High 43.0 - 75.0 % [facility] Platelet mean volume (Bld) [Entitic vol] 11 fL 9.5 - 13.5 fL [facility] TBH EO # 0.3 [facility] TB PLT 226 [facility] TB RBC 4.29 [facility] TB WBC 12.5 High [facility] CLINISYNC Glucose tolerance, 1 houron 05-04-2025 Glucose Tolerance Test [address] [facility] [employer] [facility] Glucose tolerance, 3 hourson 05-04-2025 Glucose Tolerance Test [address] [facility] [facility] [facility] Glucose, tolerance fastingon 05-04-2025 Glucose Tolerance Test Fasting 108 [facility] [facility] No Panel Informationon 05-04 [facility] US OB BPP W NON-STRESS on 05-04-[address] [address] Ultrasound Report Signed Patient: VIMAL FUNES MR#: [id number] : 2000 Acct:[id number] Age/Sex: 25 / F ADM Date: 05/04/25 Loc: [facility] 250-[address]: Rossana Ramos Ordering Physician: Rossana Ramos Date of Service: 05/04/25 Procedure(s): US OB BPP w non-stress Accession Number(s): [id number] cc: Rossana Ramos; JENNIFER SEE The [place] [address] Patient Name: VIMAL FUNES MRN: [facility]:[id number] date: 2000 Sex: F Assigned Patient Location: [facility] Current Patient Location: [facility] Accession/Order Number: [id number] Exam Date: 05/04/2025 12:08 Report Date: 05/04/2025 12:09 At the request of: ROSSANA RAMOS Procedure: US OB BPP w non-stress Biophysical profile. Reason for exam: Gestational diabetes COMPARISON: None TECHNIQUE: Transabdominal imaging of the gravid uterus was obtained. 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 DANYA is normal at 12.4 cm. heart rate 150 bpm. US/US OB BPP w non-stress IMPRESSION: BPP 8 out of 8. Impression dictated by: Bulmaro Arias Jr., D.O. 05/04/2025 12:09 PM Dictation Location: [place] [address] Electronically authenticated by: [id number] Y Date: 05/04/2025 12:09 Dictated By: Bulmaro Arias M.D. Signed By: 05/04/25 1212 DD/ 1209 TD/TT: Brace Maker: [facility] Radiology, Radiologist, - 05/04/2025 [place] [address] Ultrasound Report Signed Patient: VIMAL FUNES MR#: [id number] : 2000 Acct:[id number] Age/Sex: 25 / F ADM Date: 05/04/25 Loc: [facility] 250-[address]: Rossana Ramos Ordering Physician: Rossana Ramos Date of Service: 05/04/25 Procedure(s): US OB BPP w non-stress Accession Number(s): [id number] cc: Rossana Ramos; JENNIFER SEE [address] [address] Patient Name: VIMAL FUNES MRN: [id number] date: 2000 Sex: F Assigned Patient Location: [facility] Current Patient Location: [facility] Accession/Order Number: [id number] Exam Date: 05/04/2025 12:08 Report Date: 05/04/2025 12:09 At the request of: ROSSANA RAMOS Procedure: US OB BPP w non-stress Biophysical profile. Reason for exam: Gestational diabetes COMPARISON: None TECHNIQUE: Transabdominal imaging of the gravid uterus was obtained. 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 DANYA is normal at 12.4 cm. heart rate 150 bpm. US/US OB BPP w non-stress IMPRESSION: BPP 8 out of 8. Impression dictated by: Bulmaro Arias Jr., D.O. 05/04/2025 12:09 PM Dictation Location: [place] [address] Electronically authenticated by: [id number] Y Date: 05/04/2025 12:09 Dictated By: Bulmaro Arias M.D. Signed By: 05/04/25 1212 DD/ 1209 TD/TT: Brace Maker: [facility] Radiology Study observation (narrative) [facility] US OB BPP W NON-STRESS Ordered By: Radiologist Radiology on 05-04-2025 [facility] [employer] Work Phone: US OB GROWTHon 05-04-[address] [address] Ultrasound Report Signed Patient: VIMAL FUNES MR#: [id number] : 2000 Acct:[id number] Age/Sex: 25 / F ADM Date: 05/04/25 Loc: [facility] 250-[address]: Rossana Ramos Ordering Physician: Rossana Ramos Date of Service: 05/04/25 Procedure(s): US OB growth Accession Number(s): [id number] cc: Rossana Ramos; JENNIFER SEE The [address] [address] Patient Name: VIMAL FUNES MRN: [facility]:[id number] date: 2000 Sex: F Assigned Patient Location: [facility] Current Patient Location: [facility] Accession/Order Number: [id number] Exam Date: 05/04/2025 12:06 Report Date: 05/04/2025 [...] Jr., D.O. 05/04/2025 12:08 PM Dictation Location: [facility] Electronically authenticated by: [id number] Y Date: 05/04/2025 12:08 Dictated By: Bulmaro Arias M.D. Signed By: 05/04/25 1211 DD/ 1208 TD/TT: Brace Maker: [facility] Radiology, Radiologist, MD - 05/04/[address] [address] Ultrasound Report Signed Patient: VIMAL FUNES MR#: [id number] : 2000 Acct:[id number] Age/Sex: 25 / F ADM Date: 05/04/25 Loc: [facility] 250-[address]: Rossana Ramos Ordering Physician: Rossana Ramos Date of Service: 05/04/25 Procedure(s): US OB growth Accession Number(s): [id number] cc: Rossana Ramos; JENNIFER SEE [place] [id number] Patient Name: VIMAL FUNES MRN: [facility]:[id number] date: 2000 Sex: F Assigned Patient Location: [facility] Current Patient Location: [facility] Accession/Order Number: [id number] Exam Date: 05/04/2025 12:06 Report Date: 05/04/2025 [...] Jr., D.O. 05/04/2025 12:08 PM Dictation Location: [place] [address] Electronically authenticated by: [id number] Y Date: 05/04/2025 12:08 Dictated By: Bulmaro Arias M.D. Signed By: 05/04/25 1211 DD/ 1208 TD/TT: Brace Maker: [facility] [employer] Radiology Study observation (narrative) [facility] US OB GROWTHOrdered By: Jeimy azyas Radiology on 05-04-2025 [facility] [employer] Work Phone: Urinalysis macro (dipstick) panel (U)on 04-30-2025 Bilirubin, UA Negative Negative - 4(70) +++ mg/dL [facility] Blood, UA Negative Negative - 50 Jason/mcL [facility] Clarity, UA Clear [facility] Color, UA Yellow [facility] [employer] Glucose, UA Positive Negative - 2000(110) ++++ mg/dL [facility] Interpretation and review of laboratory results Abnormal [facility] Ketones, UA Negative Negative - 160(16) ++++ mg/dL [facility] Leukocytes, UA Positive Negative - 500+++ Carlos/mcL [facility] Nitrite, UA Negative Negative - Positive [facility] pH, UA 6 5 - 9 [facility] Protein, UA Negative Negative - 1999(20) ++++ mg/dL [facility] Spec Grav, UA 1.01 1 - 1.03 [facility] Urobilinogen, UA 1.0 0.2 - 12 mg/dL [facility] ALL CBC WITH AUTO DIFFon BASOPHILS ABSOLUTE AUTO 0 [facility] Basophils/100 WBC (Bld) 0.2 % 0.2 - 2.0 % [facility] Eosinophils/100 WBC (Bld) 2.2 % 0.9 - 7.0 % [facility] Erythrocyte distribution width (RBC) [Ratio] 12.9 % 11.0 - 15.0 % [facility] Hematocrit (Bld) [Volume fraction] 40 % 36.0 - 48.0 % [facility] Hemoglobin (Bld) [Mass/Vol] 13.6 g/dL 12.0 - 16.0 g/dL [facility] IMMATURE GRANULOCYTES ABS AUTO 0.04 High [facility] Immature granulocytes/100 WBC (Bld) 0.3 % 0.0 - 0.5 % [facility] Interpretation and review of laboratory results Abnormal [facility] LYMPHOCYTES ABSOLUTE AUTO 1.4 [facility] Lymphocytes/100 WBC (Bld) 10.8 % Low 20.5 - 60.0 % [facility] MCH (RBC) [Entitic mass] 31.7 pg 26.7 - 34.0 pg [facility] MCHC (RBC) [Mass/Vol] 34 g/dL 29.9 - 35.2 g/dL [facility] MCV (RBC) [Entitic vol] 93.2 fL 81.0 - 99.0 fL [facility] MONOCYTES ABSOLUTE AUTO 0.5 [facility] Monocytes/100 WBC (Bld) 4.3 % 1.7 - 12.0 % [facility] NEUTROPHILS ABSOLUTE AUTO 10.2 High [facility] Neutrophils/100 WBC (Bld) 82.2 % High 43.0 - 75.0 % [facility] Platelet mean volume (Bld) [Entitic vol] 10.6 fL 9.5 - 13.5 fL [facility] TBH EO # 0.3 [facility] TBH PLT 202 [facility] TB RBC 4.29 [facility] TB WBC 12.5 High [facility] Glucose 1h post 50g loadon 0 04-27-2025 Glucose, 1 hr PP 50GM dose 171 [facility] No Panel Informationon 04-27 [facility] Urinalysis macro (dipstick) panel (U)on 04-25-2025 Bilirubin, UA Negative Negative - 4(70) +++ mg/dL [facility] Blood, UA Negative Negative - 50 Jason/mcL [facility] Healthcare Clarity, UA Clear [facility] Color, UA Yellow [facility] Glucose, UA Negative Negative - 1999(110) ++++ mg/dL [facility] Interpretation and review of laboratory results Normal [facility] Ketones, UA Negative Negative - 160(16) ++++ mg/dL [facility] Leukocytes, UA Negative Negative - 500+++ Carlos/mcL [facility] Healthcare Nitrite, UA Negative Negative - Positive [facility] pH, UA 6.5 5 - 9 [facility] Protein, UA Negative Negative - 1999(20) ++++ mg/dL [facility] Spec Grav, UA 1.01 1 - 1.03 [facility] Urobilinogen, UA 0.2 0.2 - 12 mg/dL [facility] Urinalysis macro (dipstick) panel (U)on 04-11-2025 Bilirubin, UA Negative Negative - 4(70) +++ mg/dL [facility] Blood, UA Negative Negative - 50 Jason/mcL [facility] Healthcare Clarity, UA Clear [facility] Color, UA Yellow [facility] Glucose, UA Negative Negative - 1999(110) ++++ mg/dL [facility] Interpretation and review of laboratory results Normal [facility] Ketones, UA Negative Negative - 160(16) ++++ mg/dL [facility] Healthcare Leukocytes, UA Negative Negative - 500+++ Carlos/mcL [facility] Healthcare Nitrite, UA Negative Negative - Positive [facility] pH, UA 7 5 - 9 [facility] Protein, UA Negative Negative - 1999(20) ++++ mg/dL [facility] Spec Grav, UA 1.005 1 - 1.03 [facility] Urobilinogen, UA 1.0 0.2 - 12 mg/dL [facility] US OB INCOMPLETE ANATOMYon 0 03-25-2025 [place] [address] Ultrasound Report Signed Patient: VIMAL FUNES MR#: [id number] : 2000 Acct:[id number] Age/Sex: 24 / F ADM Date: 03/23/25 Loc: US Attending Dr: Jose Rodriguez D.O. Ordering Physician: Jose Rodriguez D.O. Date of Service: 03/23/25 Procedure(s): US OB incomplete anatomy Accession Number(s): [id number] cc: JENNIFER SEE ; Jose Rodriguez D.O. [place] [address] Patient Name: VIMAL FUNES MRN: [id number] date: 2000 Sex: F Assigned Patient Location: US Current Patient Location: US Accession/Order Number: [id number] Exam Date: 03/25/2025 08:23 Report Date: 03/25/2025 [...] Brown M.D. 03/25/2025 8:25 AM Dictation Location: [place] [address] Electronically authenticated by: [id number] Y Date: 03/25/2025 08:25 Dictated By: Meghana Brown M.D. Signed By: 03/25/2527 DD/ 4 TD/TT: Brace Maker: [facility] Radiology, Radiologist, MD - 03/25/2025 [place] [address] Ultrasound Report Signed Patient: VIMAL FUNES MR#: [id number] : 2000 Acct:[id number] Age/Sex: 24 / F ADM Date: 03/23/25 Loc: US Attending Dr: Jose Rodriguez D.O. Ordering Physician: Jose Rodriguez D.O. Date of Service: 03/23/25 Procedure(s): US OB incomplete anatomy Accession Number(s): [id number] cc: JENNIFER SEE ; Jose Rodriguez D.O. The [place] [address] Patient Name: VIMAL FUNES MRN: [facility]:[id number] date: 2000 Sex: F Assigned Patient Location: US Current Patient Location: US Accession/Order Number: [id number] Exam Date: 03/25/2025 08:23 Report Date: 03/25/2025 [...] Brown M.D. 03/25/2025 8:25 AM Dictation Location: [place] [address] Electronically authenticated by: [id number] Y Date: 03/25/2025 08:25 Dictated By: Meghana Brown M.D. Signed By: 03/25/25826 DD/ 4 TD/TT: Brace Maker: [facility] Radiology Study observation (narrative) [facility] US OB INCOMPLETE ANATOMYOrde red By: Radiologist Radiology on 03-25-2025 [facility] [employer] Work Phone: Urinalysis macro (dipstick) panel (U)on 03-14-2025 Bilirubin, UA Negative Negative - 4(70) +++ mg/dL [facility] Blood, UA Negative Negative - 50 Jason/mcL [facility] Clarity, UA Clear [facility] re Color, UA Yellow [facility] e Glucose, UA Negative Negative - 2000(110) ++++ mg/dL [facility] Interpretation and review of laboratory results Normal [facility] Ketones, UA Negative Negative - 160(16) ++++ mg/dL [facility] Leukocytes, UA Negative Negative - 500+++ Carlos/mcL [facility] Nitrite, UA Negative Negative - Positive [facility] pH, UA 7 5 - 9 [facility] Protein, UA Negative Negative - 1999(20) ++++ mg/dL [facility] Spec Grav, UA 1.01 1 - 1.03 [facility] Urobilinogen, UA 0.2 0.2 - 12 mg/dL [facility] No Panel InformationOrdered By: Radiologist Radiology on 03-08-2025 [facility] Work Phone: No Panel Informationon 03-08 Radiology Study observation (narrative) [facility] US OB ANATOMYon 03-08-2025 [place] [address] Ultrasound Report Signed Patient: VIMAL FUNES MR#: [id number] : 2000 Acct:[id number] Age/Sex: 24 / F ADM Date: 03/08/25 Loc: US Attending Dr: Jose Rodriguez D.O. Ordering Physician: Jose Rodriguez D.O. Date of Service: 03/08/25 Procedure(s): US OB anatomy Accession Number(s): [id number] cc: JENNIFER SEE ; Jose Rodriguez D.O. The [address] [address] Patient Name: VIMAL FUNES MRN: [facility]:[id number] date: 2000 Sex: F Assigned Patient Location: US Current Patient Location: US Accession/Order Number: [id number] Exam Date: 03/08/2025 20:31 Report Date: 03/08/2025 [...] Knapp M.D. 03/08/2025 8:36 PM Dictation Location: [place] [address] Electronically authenticated by: [id number] Y Date: 03/08/2025 20:36 Dictated By: Shivam Knapp D.O. Signed By: 03/08/252037 DD/ 35 TD/TT: Brace Maker: [facility] Radiology, Radiologist, MD - 03/08/2025 The [place] [id number] Ultrasound Report Signed Patient: VIMAL FUNES MR#: [id number] : 2000 Acct:[id number] Age/Sex: 24 / F ADM Date: 03/08/25 Loc: US Attending Dr: Jose Rodriguez D.O. Ordering Physician: Jose Rodriguez D.O. Date of Service: 03/08/25 Procedure(s): US OB anatomy Accession Number(s): [id number] cc: JENNIFER SEE ; Jose Rodriguez D.O. [place] [address] Patient Name: VIMAL FUNES MRN: [id number] date: 2000 Sex: F Assigned Patient Location: US Current Patient Location: US Accession/Order Number: [id number] Exam Date: 03/08/2025 20:31 Report Date: 03/08/2025 [...] Knapp M.D. 03/08/2025 8:36 PM Dictation Location: [facility] Electronically authenticated by: [id number] Y Date: 03/08/2025 20:36 Dictated By: Shivam Knapp D.O. Signed By: 03/08/252037 DD/ 35 TD/TT: Brace Maker: ARJUN Martinez OB CERVICAL LENGTHon 02-24 [place] [address] Ultrasound Report Signed Patient: VIMAL FUNES MR#: [id number] : 2000 Acct:[id number] Age/Sex: 24 / F ADM Date: 03/08/25 Loc: US Attending Dr: Jose Rodriguez D.O. Ordering Physician: Jose Rodriguez D.O. Date of Service: 03/08/25 Procedure(s): US OB cervical length Accession Number(s): [id number] cc: JENNIFER SEE ; Jose Rodriguez D.O. [place] [address] Patient Name: VIMAL FUNES MRN: [id number] date: 2000 Sex: F Assigned Patient Location: US Current Patient Location: US Accession/Order Number: [id number] Exam Date: 03/08/2025 20:31 Report Date: 03/08/2025 [...] Knapp M.D. 03/08/2025 8:36 PM Dictation Location: [place] [address] Electronically authenticated by: [id number] Y Date: 03/08/2025 20:36 Dictated By: Shivam Knapp D.O. Signed By: 03/08/252037 DD/ 35 TD/TT: Brace Maker: [facility] Radiology, Radiologist, MD - 03/08/2025 [place] [address] Ultrasound Report Signed Patient: VIMAL FUNES MR#: [id number] : 2000 Acct:[id number] Age/Sex: 24 / F ADM Date: 03/08/25 Loc: US Attending Dr: Jose Rodriguez D.O. Ordering Physician: Jose Rodriguez D.O. Date of Service: 03/08/25 Procedure(s): US OB cervical length Accession Number(s): [id number] cc: JENNIFER SEE ; Jose Rodriguez D.O. The [place] [id number] Patient Name: VIMAL UFNES MRN: [facility]:[id number] date: 2000 Sex: F Assigned Patient Location: US Current Patient Location: US Accession/Order Number: [id number] Exam Date: 03/08/2025 20:31 Report Date: 03/08/2025 [...] Knapp M.D. 03/08/2025 8:36 PM Dictation Location: [facility] Electronically authenticated by: [id number] Y Date: 03/08/2025 20:36 Dictated By: Shivam Knapp D.O. Signed By: 03/08/252037 DD/ 35 TD/TT: Brace Maker: [facility] IGP,APTIMA HPV,AGE GDLNon AGE GDLN ACOG TESTING Note . [facility] Comment on above: TESTS RESULT FLAG UN ITS REF RANGE LAB Clinician Provided Cytology Information Source.............[employer]ix No. of containers..01 ThinPrep Vial Age Algo ACOG Yris... FLAG LEGEND: L-Low Normal,H-High Normal,LL-Alert Low,HH-Alert High <-Panic Low,>-Panic High,A-Abnormal,AA-Critical Abnormal Performed at: 01 =G [facility] [address] [address] [place] [address] Jenise Byrne MD, IGP, RFX APTIMA HPV ASCU Note . [facility] Comment on above: TESTS RESULT FLAG UN ITS REF RANGE LAB DIAGNOSIS: 02 NEGATIVE FOR INTRAEPITHELIAL LESION OR MALIGNANCY. Specimen adequacy: 02 Satisfactory for evaluation. Endocervical and/or squamous metaplastic cells (endocervical component) are present. Performed by: Hussein Alvarez, Cast Iron Dipper ([facility]) . 02 Note: Note 02 [...] High,A-Abnormal,AA-Critical Abnormal Performed at: 02 WB [facility] [address] [address] [facility] [place] [address] Jenise Byrne MD, Performed at: = - [facility], [place] [id number] Front End Wheel Loader Operator: Jenise Byrne MD, Phone: [phone] Performed at: [facility], [place] [id number] Front End Wheel Loader Operator: Jenise Byrne MD, Phone: [phone] [facility] Healthcar e RECURRENT VAGINITIS (HTRX)on 02-22-2025 ATOPOBIUM VAGINAE 0 [facility] ATOPOBIUM VAGINAE Not detected [facility] [...] UA Negative Negative - 4(70) +++ mg/dL [facility] Blood, UA Negative Negative - 50 Jason/mcL [facility] Clarity, UA Clear NOM Healthca re Color, UA Yellow NOM Health[facility] e Glucose, UA Negative Negative - 2000(110) ++++ mg/dL [facility] Interpretation and review of laboratory results Abnormal [facility] Ketones, UA Negative Negative - 160(16) ++++ mg/dL [facility] Leukocytes, UA Negative Negative - 500+++ Carlos/mcL [facility] Nitrite, UA Negative Negative - Positive [facility] pH, UA 7 5 - 9 [facility] Protein, UA Negative Negative - 1999(20) ++++ mg/dL [facility] Spec Grav, UA 1.01 1 - 1.03 [facility] Urobilinogen, UA 0.2 0.2 - 12 mg/dL [facility] Un[facility] Lab Teston 01-16-20 [facility] Urinalysis macro (dipstick) panel (U)on 01-14-2025 Bilirubin, UA Negative Negative - 4(70) +++ mg/dL [facility] Blood, UA Positive Negative - 50 Jason/mcL [facility] Comment on above: trace-intact Clarity, UA Clear [facility] Healthdc re Color, UA Yellow [facility] Healthcar e Glucose, UA Negative Negative - 1999(110) ++++ mg/dL [facility] Interpretation and review of laboratory results Abnormal [facility] Ketones, UA Negative Negative - 160(16) ++++ mg/dL [facility] Leukocytes, UA Negative Negative - 500+++ Carlos/mcL [facility] Nitrite, UA Negative Negative - Positive [facility] pH, UA 6 5 - 9 [facility] Protein, UA Negative Negative - 1999(20) ++++ mg/dL [facility] Spec Grav, UA 1.005 1 - 1.03 [facility] Urobilinogen, UA 0.2 0.2 - 12 mg/dL [facility] Healthcar e Free Cell DNA (Non-Pro Medica Send Out)on 01-13-2025 [facility] ALL CBC WITH AUTO DIFFon BASOPHILS ABSOLUTE AUTO 0 [facility] Basophils/100 WBC (Bld) 0.4 % 0.2 - 2.0 % [facility] Eosinophils/100 WBC (Bld) 1.7 % 0.9 - 7.0 % [facility] Erythrocyte distribution width (RBC) [Ratio] 12.3 % 11.0 - 15.0 % [facility] IMMATURE GRANULOCYTES ABS AUTO 0.02 [facility] Immature granulocytes/100 WBC (Bld) 0.2 % 0.0 - 0.5 % [facility] Interpretation and review of laboratory results Abnormal [facility] LYMPHOCYTES ABSOLUTE AUTO 1.4 [facility] Lymphocytes/100 WBC (Bld) 15.4 % Low 20.5 - 60.0 % [facility] MCH (RBC) [Entitic mass] 31.6 pg 26.7 - 34.0 pg [facility] MCHC (RBC) [Mass/Vol] 34.6 g/dL 29.9 - 35.2 g/dL [facility] MCV (RBC) [Entitic vol] 91.4 fL 81.0 - 99.0 fL [facility] MONOCYTES ABSOLUTE AUTO 0.5 [facility] Monocytes/100 WBC (Bld) 5.4 % 1.7 - 12.0 % [facility] NEUTROPHILS ABSOLUTE AUTO 7 High [facility] Neutrophils/100 WBC (Bld) 76.9 % High 43.0 - 75.0 % [facility] Platelet mean volume (Bld) [Entitic vol] 10.1 fL 9.5 - 13.5 fL [facility] RBC 4.65 [facility] Healthcar e TBH WBC 9.2 [facility] Healthcar e CLINISYNC CBC without diffOrdered By: Lay Peacock on 01-05-2025 Rbc Mcv (Fl) By Automated Count 91.4 [facility] Drug Screen, Urineon 025 Amphetamine/Methamphet amine Negative [facility] Barbiturates Negative [facility] Benzodiazepines Negarive [facility] Cocaine Metabolite Negative [facility] Ecstasy Negative [facility] Methadone Negative [facility] Opiates Negative [facility] Phencyclidine Negative [facility] Thc Marijuana, Urine Negative [facility] HBV surface Ag IA Qlon 01-05 Hepatitis B Surface Antigen Negative [facility] HIV 1+2 Ab+HIV1 p24 Ag IA Ql on 01-05-2025 HIV 1&2 AB/AG Non-Reactive [facility] Hemoglobin A1con 01-05-2025 HbA1c (Bld) [Mass fraction] 5 % 4.0 - 6.0 % [facility] Laboratory - Hematology and Cell countson 01-05-2025 Hematocrit (Bld) [Volume fraction] 42.5 % [facility] Hemoglobin (Bld) [Mass/Vol] 14.7 g/dL [facility] Healthcare No Panel Informationon 01-05 [facility] Rubella IGG immune statuson 01-05-2025 Rubella immune IgG 1.57 [facility] Type and screenon 01-05-2025 Abo/Rh(D) Positive [facility] US OB TRANSVAGINALon 025 US OB TRANSVAGINAL [...] II, MD, PHD at 14-Dec-2024 08:35:59 PM [facility] Normal Not Available Comment on above: Order Comment: US OB TRANSVAGINAL No LMP recorded. TBH PREG QUANT HCGon 025 HCG QUANTITATIVE 91307 mIU/mL [facility] Comment on above: 5-50 0.2-1 WEEK 50-500 1-2 WEEKS 100-5,000 2-3 WEEKS 500-10,000 3-4 WEEKS 1,000-50,000 4-5 WEEKS 10,000-100,000 5-6 WEEKS 15,000-200,000 6-8 WEEKS 10,000-100,000 2-3 [facility] PREG QUANT HCGon 11-19- 025 HCG QUANTITATIVE 6254 mIU/mL [facility] Comment on above: 5-50 0.2-1 WEEK 50-500 1-2 WEEKS 100-5,000 2-3 WEEKS 500-10,000 3-4 WEEKS 1,000-50,000 4-5 WEEKS 10,000-100,000 5-6 WEEKS 15,000-200,000 6-8 WEEKS 10,000-100,000 2-3 MONTHS [facility] PREG QUANT HCGon 024 HCG QUANTITATIVE 6 mIU/mL [facility] ltare Comment on above: 5-50 0.2-1 WEEK 50-500 1-2 WEEKS 100-5,000 2-3 WEEKS 500-10,000 3-4 WEEKS 1,000-50,000 4-5 WEEKS 10,000-100,000 5-6 WEEKS 15,000-200,000 6-8 WEEKS 10,000-100,000 2-3 [facility] WITH AUTO DIFFon BASOPHILS ABSOLUTE AUTO 0 [facility] Basophils/100 WBC (Bld) 0.5 % 0.2 - 2.0 % [facility] Eosinophils/100 WBC (Bld) 6.2 % 0.9 - 7.0 % [facility] Erythrocyte distribution width (RBC) [Ratio] 11.9 % 11.0 - 15.0 % [facility] Hematocrit (Bld) [Volume fraction] 43.8 % 36.0 - 48.0 % [facility] Hemoglobin (Bld) [Mass/Vol] 14.8 g/dL 12.0 - 16.0 g/dL [facility] IMMATURE GRANULOCYTES ABS AUTO 0.02 [facility] Immature granulocytes/100 WBC (Bld) 0.2 % 0.0 - 0.5 % [facility] LYMPHOCYTES ABSOLUTE AUTO 2 [facility] Lymphocytes/100 WBC (Bld) 22.1 % 20.5 - 60.0 % [facility] MCH (RBC) [Entitic mass] 31.7 pg 26.7 - 34.0 pg [facility] MCHC (RBC) [Mass/Vol] 33.8 g/dL 29.9 - 35.2 g/dL [facility] MCV (RBC) [Entitic vol] 93.8 fL 81.0 - 99.0 fL [facility] MONOCYTES ABSOLUTE AUTO 0.5 [facility] Monocytes/100 WBC (Bld) 5.3 % 1.7 - 12.0 % [facility] NEUTROPHILS ABSOLUTE AUTO 5.8 [facility] Neutrophils/100 WBC (Bld) 65.7 % 43.0 - 75.0 % [facility] Platelet mean volume (Bld) [Entitic vol] 10 fL 9.5 - 13.5 fL [facility] TBH EO # 0.6 [facility] Health[facility] e TBH PLT 236 [facility] Health[facility] TBH RBC 4.67 [facility] Health[facility] e TBH WBC 8.9 [facility] Health[facility] Healthcar e [place] 08-10-2024 L Specimen: [id number] Received: 08/10/24 Status: CAROL Hoang Num: [id number] Spec Type: Surgical Subm Dr: Jose Rodriguez Tissues: A Products of Conception - Spontaneous or Missed (CONTENTS OF CONCEPT Procedures: HE/2, Gross/Micro L4 Age/ Patient Sex Location Account Attending Physician Vimal Funes / LABELL [id number] Jose Rodriguez SPEC NUM: [id number] RECD: 08/10/24 STATUS: CAROL ELENA NUM: [id number] CAROLIN: 08/10/24 [facility] DR: Jose Rodriguez ENTERED: 08/10/24 [facility] DR: Nadir,Lab SPEC TYPE: Surgical DEPT: MONICA ALTMAN ENTERED BY: [id number] RECV BY: [id number] ORDERED: HE/2, Gross/Micro L4 ORDERED: HE/2, Gross/Micro [...] villi and decidua. No tissue is identified. Page Technician sections of the chorionic villi are submitted in cassette A1 with retail representative sections of the decidua is submitted in cassette A2. (2, ss, [id number]) CPT Codes 71000 Specimen: [id number] Received: 08/10/24 Status: CAROL Hoang Num: [id number] Spec Type: Surgical Subm Dr: Jose Rodriguez Tissues: A Products of Conception - Spontaneous or Missed (CONTENTS OF CONCEPT Procedures: HE/2, Gross/Micro L4 Patient: Vimal Funes [id number] (Continued) Signed (signature on file) Josh Aragon MD 08/13/24 2191 Normal [facility] TB PREG QUANT HCGon 024 HCG QUANTITATIVE 240 mIU/mL [facility] Comment on above: 5-50 0.2-1 WEEK 50-500 1-2 WEEKS 100-5,000 2-3 WEEKS 500-10,000 3-4 WEEKS 1,000-50,000 4-5 WEEKS 10,000-100,000 5-6 WEEKS 15,000-200,000 6-8 WEEKS 10,000-100,000 2-3 MONTHS CLINISYNC NOM Healthcar e ALL CBC WITH AUTO DIFFon BASOPHILS ABSOLUTE AUTO 0.1 [facility] Basophils/100 WBC (Bld) 0.5 % 0.2 - 2.0 % [facility] Eosinophils/100 WBC (Bld) 2.8 % 0.9 - 7.0 % [facility] Erythrocyte distribution width (RBC) [Ratio] 11.9 % 11.0 - 15.0 % [facility] Hematocrit (Bld) [Volume fraction] 44.7 % 36.0 - 48.0 % [facility] Hemoglobin (Bld) [Mass/Vol] 15.3 g/dL 12.0 - 16.0 g/dL [facility] IMMATURE GRANULOCYTES ABS AUTO 0.03 [facility] Immature granulocytes/100 WBC (Bld) 0.3 % 0.0 - 0.5 % [facility] Interpretation and review of laboratory results Abnormal [facility] LYMPHOCYTES ABSOLUTE AUTO 1.6 [facility] Lymphocytes/100 WBC (Bld) 14.9 % Low 20.5 - 60.0 % [facility] MCH (RBC) [Entitic mass] 31.7 pg 26.7 - 34.0 pg [facility] MCHC (RBC) [Mass/Vol] 34.2 g/dL 29.9 - 35.2 g/dL [facility] MCV (RBC) [Entitic vol] 92.7 fL 81.0 - 99.0 fL [facility] MONOCYTES ABSOLUTE AUTO 0.4 [facility] Monocytes/100 WBC (Bld) 3.7 % 1.7 - 12.0 % [facility] NEUTROPHILS ABSOLUTE AUTO 8.2 High [facility] Neutrophils/100 WBC (Bld) 77.8 % High 43.0 - 75.0 % [facility] Platelet mean volume (Bld) [Entitic vol] 10 fL 9.5 - 13.5 fL [facility] TBH EO # 0.3 [facility] TBH PLT 263 [facility] TB RBC 4.82 [facility] TBH WBC 10.6 [facility] No Panel Informationon 07-21 [facility] TB DRUG SCREEN RAPID (URINE )on 07-21-2024 AMPHETAMINE SCREEN URINE Negative NEGATIVE [facility] BARBITURATES SCREEN URINE Negative NEGATIVE [facility] BENZODIAZEPINES SCREEN URINE Negative NEGATIVE [facility] BUPRENORPHINE SCREEN URINE Negative NEGATIVE [facility] Comment on above: DRUG CLASS [...] 300 ng/mL CANNABINOID SCREEN URINE Negative NEGATIVE [facility] COCAINE SCREEN URINE Negative NEGATIVE [facility] METHADONE SCREEN URINE Negative NEGATIVE NO [facility] METHAMPHETAMINES SCREEN URINE Negative NEGATIVE [facility] OPIATE SCREEN URINE Negative NEGATIVE [facility] OXYCODONE SCREEN URINE Negative NEGATIVE NO [facility] PHENCYCLIDINE SCREEN URINE Negative NEGATIVE [facility] TRICYCLIC ANTIDEPRESSANT URINE Negative NEGATIVE [facility] REEFLEX IF POSITIVE CLINISYNC HCG ( test) Ql (U)o n 06-29-2024 Interpretation and review of laboratory results Abnormal [facility] Preg Test, Ur Positive [facility] Health[facility] e Urinalysis macro (dipstick) panel (U)on 06-29-2024 Bilirubin, UA Negative Negative - 4(70) +++ mg/dL [facility] Blood, UA Negative Negative - 50 Jason/mcL [facility] Clarity, UA Clear [facility] re Color, UA Yellow [facility] Glucose, UA Negative Negative - 1999(110) ++++ mg/dL [facility] Interpretation and review of laboratory results Normal [facility] Ketones, UA Negative Negative - 160(16) ++++ mg/dL [facility] Leukocytes, UA Negative Negative - 500+++ Carlos/mcL [facility] Nitrite, UA Negative Negative - Positive [facility] pH, UA 7.0 5 - 9 [facility] Protein, UA Negative Negative - 1999(20) ++++ mg/dL [facility] Spec Grav, UA 1.015 1 - 1.03 [facility] care Urobilinogen, UA 0.2 0.2 - 12 mg/dL [facility] Health[facility] e XR hand RT min 3V*on 023 XR hand RT min 3V* [facility] [employer] Other XR hand RT min 3V* [facility] [employer] Other XR hand RT min 3V* [address] [facility] [employer] Other XR hand RT min 3V* [place]E [place] [id number] [employer] Other XR hand RT min 3V* XRay Report [employer] Other XR hand RT min 3V* Signed [employer] Other XR hand RT min 3V* Patient: Vimal Funes MR#: [id number] [place] [employer] Other XR hand RT min 3V* 18 [employer] Other XR hand RT min 3V* : 2000 Acct:[id number] [employer] Other XR hand RT min 3V* Age/Sex: 22 / F ADM Date: 12/26/22 [employer] Other XR hand RT min 3V* Loc: XDUCLY Room: Type: [facility] [employer] Other XR hand RT min 3V* Attending Dr: Jennifer GIL [employer] Other XR hand RT min 3V* Copies to: JEFFERY Rodriguez [employer] Other XR hand RT min 3V* Ordering Provider: JEFFERY Rodriguez [employer] Other XR hand RT min 3V* Date of Service: 12/26/22 [employer] Other XR hand RT min 3V* XR/XR hand RT min 3V*: RIGHT HAND INJURY [employer] Other XR hand RT min 3V* RIGHT HAND - 4 views [employer] Other XR hand RT min 3V* REASON FOR EXAM: Patient had right thumb hyperextended yesterday when trying to open the door. Now [employer] Other XR hand RT min 3V* with pain. [employer] Other XR hand RT min 3V* COMPARISON: None [employer] Other XR hand RT min 3V* FINDINGS: [employer] Other XR hand RT min 3V* No focal soft tissue abnormality. There appears to be avulsion fracture involving the base of the [employer] Other XR hand RT min 3V* distal phalanx of the thumb. Joint spaces appear maintained. No bony erosions. [employer] Other XR hand RT min 3V* XR/XR hand RT min 3V* [employer] Other XR hand RT min 3V* IMPRESSION: [employer] Other XR hand RT min 3V* AVULSION FRACTURE INVOLVING THE BASE OF THE DISTAL PHALANX OF THE THUMB. [employer] Other XR hand RT min 3V* Impression dictated by: Bulmaro Arias Jr., Bahman12/26/2022 1:44 PM [employer] Other XR hand RT min 3V* Dictation Location: [facility]--15 [employer] Other XR hand RT min 3V* Transcribed By: LYNETTE 12/26/22 1344 [employer] Other XR hand RT min 3V* Dictated By: Bulmaro Arias Jr, DO 12/26/22 1343 [facility] [employer] Other XR hand RT min 3V* Signed By: [facility] [employer] Other XR hand RT min 3V* 12/26/22 1344 [facility] [employer] Other PAP ACOG PANEL 2: 22 to 30on 11-09-2022 . . Normal [facility] Comment on above: Performed By: #### [id number] ####[facility] [address] [address]DrGene Mancini Age Gdln ACOG Testing - [facility] Comment on above: Performed By: #### [id number] ####[facility] [address] [place], [place] [address]DrGene Mancini DIAGNOSIS: Comment [facility] Comment on above: Result Comment: NEGA TIVE FOR INTRAEPITHELIAL LESION OR MALIGNANCY. Performed By: #### 4 [id number] ####[facility] [address] [place], [place] [address]DrGene Mancini Methodology: Comment [facility] Comment on above: Result Comment: This liquid based ThinPrep(R) pap test was screened with the use of an image guided system. Performed By: #### 4 [id number] ####[facility] [address] [place], [place] [address]DrGene Mancini Note: Comment [facility] Comment on above: Result Comment: The Pap smear is a screening test designed to aid in the detection of premalignant and malignant conditions of the uterine cervix. It is not a diagnostic procedure and should not be used as the sole means of detecting cervical cancer. Both false-positive and false-negative reports do occur. . Performed By: #### [id number] ####[facility] [address] [place], [place] [address]DrGene Mancini Performed by: Comment Normal [facility] Comment on above: Result Comment: Zuleima Lin, Music Arranger (ASCP) Performed By: #### 4 [id number] ####[facility] [address] [address]DrGene Mancini Reflex Criteria: Comment [facility] Comment on above: Result Comment: The HPV DNA reflex criteria were not met with this specimen result therefore, no HPV testing was performed. . Performed By: #### 4 [id number] ####[facility] [address] [address]DrGene Mancini Specimen adequacy: Comment Normal [facility] Comment on above: Result Comment: Sati sfactory for evaluation. Endocervical and/or squamous metaplastic cells (endocervical component) are present. Performed By: #### 4 [id number] ####[facility] [address] [address]DrGene Mancini Cytology Cervical or vaginal smear or scraping studyOrdered By: Jael Nix on 11-02-2022 [facility] CBC AUTO DIFFon 08-11-2022 BASO # 0.0 103/ul Normal 0.0-0.1 [facility] Comment on above: Performed By: #### C T/NGNA #### [facility] [address] [address] [address] Donis Mancini Basophils/100 WBC (Bld) 0.2 % Normal 0.2-2.0 [facility] Comment on above: Performed By: #### C T/NGNA #### [facility] [address] [place] [address] Dr. Donis Mancini EO # 0.1 103/ul Normal 0.0-0.7 [facility] Comment on above: Performed By: #### C T/NGNA #### [facility] [address] [address] [address] Donis Mancini Eosinophils/100 WBC (Bld) 0.5 % Critically low 0.9-7.0 [facility] Comment on above: Performed By: #### C T/NGNA #### [facility] [address] [place] [address] Dr. Donis Mancini Erythrocyte distribution width (RBC) [Ratio] 12.5 % Normal 11.0-15.0 [facility] Comment on above: Performed By: #### C T/NGNA #### [facility] [address] [place] [address] Dr. Donis Mancini Hematocrit (Bld) [Volume fraction] 35.9 % Critically low 36.0-48.0 [facility] Comment on above: Performed By: #### C T/NGNA #### [facility] [address] [place] [address] Dr. Donis Mancini Hemoglobin (Bld) [Mass/Vol] 12.4 g/dL Normal 12.0-16.0 [facility] Comment on above: Result Comment: michelet ent delivered Performed By: #### C T/NGNA #### [facility] [address] [place] [address] Dr. Donis Mancini IG # 0.10 10e3/ul Critically high 0.00-0.03 [facility] Comment on above: Performed By: #### C T/NGNA #### [facility] [address] [place] [address] Dr. Donis Mancini IG % 0.5 % Normal 0.0-0.5 [facility] Comment on above: Performed By: #### C T/NGNA #### [facility] [address] [place] [address] Dr. Donis Mancini LYMPH # 1.5 103/ul Normal 1.2-3.8 [facility] Comment on above: Performed By: #### C T/NGNA #### [facility] [address] [place] [address] Dr. Donis Mancini Lymphocytes/100 WBC (Bld) 7.6 % Critically low 20.5-60.0 [facility] Comment on above: Performed By: #### C T/NGNA #### [facility] [address] [place] [address] Dr. Donis Mancini MANUAL DIFF REQ NO Normal [facility] Comment on above: Performed By: #### C T/NGNA #### [facility] [address] [place] [address] Dr. Donis Mancini MCH (RBC) [Entitic mass] 32.2 pg Normal 26.7-34.0 [facility] Comment on above: Performed By: #### C T/NGNA #### [facility] [address] [place] [address] Dr. Donis Mancini MCHC (RBC) [Mass/Vol] 34.5 g/dL Normal 29.9-35.[address] [facility] Comment on above: Performed By: #### C T/NGNA #### [facility] [address] [place] [address] Dr. Donis Mancini MCV (RBC) [Entitic vol] 93.2 fL Normal 81.0-99.[address] [facility] Comment on above: Performed By: #### C T/NGNA #### [facility] [address] [place] [address] Dr. Donis Mancini MONO # 1.3 103/ul Critically high 0.3-0.8 [facility] Comment on above: Performed By: #### C T/NGNA #### [facility] [address] [place] [address] Dr. Donis Mancini Monocytes/100 WBC (Bld) 6.8 % Normal 1.7-12.[address] [facility] Comment on above: Performed By: #### C T/NGNA #### [facility] [address] [place] [address] Dr. Donis Mancini NEUT # 16.2 103/ul Critically high 1.4-6.5 [facility] Comment on above: Performed By: #### C T/NGNA #### [facility] [address] [place] [address] Dr. Donis Mancini Neutrophils/100 WBC (Bld) 84.4 % Critically high 43.0-75.[address] [facility] Comment on above: Performed By: #### C T/NGNA #### [facility] [address] [place] [address] Dr. Donis Mancini Platelet mean volume (Bld) [Entitic vol] 11.8 fL Normal 9.5-13.[address] [facility] Comment on above: Performed By: #### C T/NGNA #### [facility] [address] [place], [place] [address] Dr. Donis Mancini PLT 156 103/ul Normal 150-[address] [facility] Comment on above: Performed By: #### C T/NGNA #### [facility] [address] [place], [place] [address] Dr. Donis Mancini RBC 3.85 106/ul Critically low 4.20-5.40 [facility] Comment on above: Performed By: #### C T/NGNA #### [facility] [id number] Donis Mancini WBC 19.2 103/ul Critically high 4.0-11.0 [facility] Comment on above: Performed By: #### C T/NGNA #### [facility] [id number] Donis Mancini Covid-19 PCR ([facility])on 07-27 SARS-CoV-2 (COVID-19) RNA INESSA+probe Ql (Unsp spec) Not detected Normal NOT DETECTED [facility] Comment on above: Result Comment: When [...] for this test is supported by the [place] of Health and Human Service's declaration that [...] used). Performed By: #### C VDTBH ####[facility] [address] [place], [place] [address]GwDr. Donis Mancini DRUG SCREEN RAPID (URINE)on 08-10-2022 AMP Negative Normal NEGATIVE [facility] Comment on above: Performed By: #### D RUGRPD ####[facility] [address] [address]Dr. Laceyjavi Mancini BAR Negative Normal NEGATIVE [facility] Comment on above: Performed By: #### D RUGRPD ####[facility] [address] [place] [address]Dr. Donis Mancini BUP Negative Normal NEGATIVE [facility] Comment on above: Performed By: #### D RUGRPD ####[facility] Swkrordobl[address] [place], [place] [address]Dr. Laceyjavi Mancini BZO Negative Normal NEGATIVE [facility] Comment on above: Performed By: #### D RUGRPD ####[facility] Fojwyusilf[address] [place], [place] [address]Dr. Laceyjavi Mancini ALXEA Negative Normal NEGATIVE [facility] Comment on above: Performed By: #### D RUGRPD ####[facility] Khwrutdwaa[address] [place], [place] [address]Dr. Donis Mancini CUT-OFFS SEE BELOW Normal [facility] Comment on above: Result Comment: AMP [...] ng/mL Performed By: #### D RUGRPD ####[facility] Pvahxurfun[address] [place], [place] [address]Dr. Donis Mancini DRUG CUT HEADER DRUG CLASS TEST SYSTEM CUT-OFF CONCENTRATIONS ARE FOLLOWS: Normal [facility] Comment on above: Performed By: #### D RUGRPD ####[facility] Nolefgnoie[address] [place], [place] [id number]. Donis Mancini mAMP Negative Normal NEGATIVE [facility] Comment on above: Performed By: #### D RUGRPD ####[facility] [address]nuwhpmtgs[address] [place] [address]Dr. Donis Mancini MTD Negative Normal NEGATIVE [facility] Comment on above: Performed By: #### D RUGRPD ####[facility] [address]ergyhiepk[address] [place] [id number]. Donis Mancini OPI Negative Normal NEGATIVE [facility] Comment on above: Performed By: #### D RUGRPD ####[facility] Lershbuxda[address] [place], [place] [address]Dr. Donis Mancini OXY Negative Normal NEGATIVE [facility] Comment on above: Performed By: #### D RUGRPD ####[facility] Dxxthazsob[address] [place], [place] [address]Dr. Donis Mancini PCP Negative Normal NEGATIVE [facility] Comment on above: Performed By: #### D RUGRPD ####[facility] Tnofprynse[address] [place], [place] [address]Dr. Donis Mancini PPX Negative Normal NEGATIVE [facility] Comment on above: Performed By: #### D RUGRPD ####[facility] Tucqihqtxc[address] [place], [place] [address]Dr. Donis Mancini TCA Negative Normal NEGATIVE [facility] Comment on above: Performed By: #### D RUGRPD ####[facility] Voukbrlmgq[address] [place], [place] [address]Dr. Donis Mancini THC Negative Normal NEGATIVE [facility] Comment on above: Performed By: #### D RUGRPD ####[facility] Aevaydupdp[address] [place], [place] [address]Dr. Donis Mancini TYPE AND SCREENon 08-10-2022 TYPE AND SCREEN Negative Normal [facility] Comment on above: Performed By: #### T NS ####[facility] Pkpwjkqwjz[address] [place], [place] [address]Dr. Donis Mancini US PREG BIOPHY W NON [...] BENNETT Date: 2022-08-10 07:[address] [facility] US PREG GROWTHon 08-10-2022 US PREG [...] BENNETT Date: 2022-08-10 07:[address] [facility] CBC AUTO DIFFon 08-09-2022 BASO # 0.0 103/ul Normal 0.0-0.1 [facility] Comment on above: Performed By: #### C BC ####[facility] Uojkprvmgl13[address] [place] [address]DrGene Mancini Basophils/100 WBC (Bld) 0.2 % Normal 0.2-2.0 [facility] Comment on above: Performed By: #### C BC ####[facility] Fmliqzkzpv29[address] [place] [address]Dr. Donis Mancini EO # 0.4 103/ul Normal 0.0-0.[address] [facility] Comment on above: Performed By: #### C BC ####[facility] Cfrkqkakmx[address] [place] [address]Dr. Donis Mancini Eosinophils/100 WBC (Bld) 2.8 % Normal 0.9-7.[address] [facility] Comment on above: Performed By: #### C BC ####[facility] Iwhhfruwgc95[address] [place] [address]Dr. Donis Mancini Erythrocyte distribution width (RBC) [Ratio] 12.2 % Normal 11.0-15.[address] [facility] Comment on above: Performed By: #### C BC ####[facility] Srcmjgddiu9[address] [place], [place] [address]Dr. Donis Mancini Hematocrit (Bld) [Volume fraction] 41.4 % Normal 36.0-48.[address] [facility] Comment on above: Performed By: #### C BC ####[facility] Barmylxfwk0[address] [place], [place] [address]Dr. Donis Mancini Hemoglobin (Bld) [Mass/Vol] 14.4 g/dL Normal 12.0-16.[address] [facility] Comment on above: Performed By: #### C BC ####[facility] Bbfkawkdel[address] [place], [place] [address]Dr. Donis Mancini IG # 0.06 10e3/ul Critically high 0.00-0.03 [facility] Comment on above: Performed By: #### C BC ####[facility] Uzgrfgxved9[address] [place] [address]Dr. Donis Mancini IG % 0.5 % Normal 0.0-0.[address] [facility] Comment on above: Performed By: #### C BC ####[facility] Zkjxykchnu[address] [place], [place] [address]Dr. Donis Mancini LYMPH # 1.5 103/ul Normal 1.2-3.[address] [facility] Comment on above: Performed By: #### C BC ####[facility] Wbybidkvfh98[address] [place], [place] [address]Dr. Donis Mancini Lymphocytes/100 WBC (Bld) 11.7 % Critically low 20.5-60.[address] [facility] Comment on above: Performed By: #### C BC ####[facility] Vvkevogync[address] [place] [address]Dr. Donis Mancini MANUAL DIFF REQ NO Normal [facility] Comment on above: Performed By: #### C BC ####[facility] Mardknhgoy045[address] [place] [address]Dr. Donis Mancini MCH (RBC) [Entitic mass] 31.9 pg Normal 26.7-34.[address] [facility] Comment on above: Performed By: #### C BC ####[facility] Agxiuwfour380[address] [place] [address]Dr. Donis Mancini MCHC (RBC) [Mass/Vol] 34.8 g/dL Normal 29.9-35.[address] [facility] Comment on above: Performed By: #### C BC ####[facility] Fxbkoprndm5[address] [place] [address]Dr. Donis Mancini MCV (RBC) [Entitic vol] 91.8 fL Normal 81.0-99.[address] [facility] Comment on above: Performed By: #### C BC ####[facility] Bdoszhooaw[address] [place] [address]Dr. Donis Mancini MONO # 1.0 103/ul Critically high 0.3-0.8 [facility] Comment on above: Performed By: #### C BC ####[facility] P[address]sljwwka67[address] [place] [address]Dr. Donis Mancini Monocytes/100 WBC (Bld) 7.5 % Normal 1.7-12.[address] [facility] Comment on above: Performed By: #### C BC ####[facility] Fikgqobmwe[address] [place] [address]Dr. Donis Mancini NEUT # 10.0 103/ul Critically high 1.4-6.5 [facility] Comment on above: Performed By: #### C BC ####[facility] Mfimsyelow45[address] [place] [address]Dr. Donis Mancini Neutrophils/100 WBC (Bld) 77.3 % Critically high 43.0-75.0 [facility] Comment on above: Performed By: #### C BC ####[facility] Dirlhbvuia[address] [place] [address]Dr. Donis Mancini Platelet mean volume (Bld) [Entitic vol] 11.6 fL Normal 9.5-13.5 [facility] Comment on above: Performed By: #### C BC ####[facility] Vgcbrqgrkg17[address] [place] [address]Dr. Donis Mancini PLT 184 103/ul Normal 150-[address] [facility] Comment on above: Performed By: #### C BC ####[facility] Argljcgiaa[address] [place] [address]Dr. Donis Mancini RBC 4.51 106/ul Normal 4.20-5.40 [facility] Comment on above: Performed By: #### C BC ####[facility] Qdxaywrlch[address] [place] [address]Dr. Donis Mancini WBC 12.9 103/ul Critically high 4.0-11.0 [facility] Comment on above: Performed By: #### C BC ####[facility] Yesawdqshk[address] [place] [address]Dr. Donis Mancini LDHon 08-09-2022 LDH 167 U/L Normal 81-234 [facility] Comment on above: Performed By: #### C T/NGNA #### [facility] [address] [address] [address] Donis Mancini PROF 14(COMP METB)on 022 Albumin [Mass/Vol] 2.7 g/dL Critically low 3.4-5.0 [facility] Comment on above: Performed By: #### C T/NGNA #### [facility] [address] [address] [address] Donis Mancini Albumin/Globulin [Mass ratio] 0.6 {ratio} Normal [facility] Comment on above: Performed By: #### C T/NGNA #### [facility] [address] [address] [address] Donis Mancini ALP [Catalytic activity/Vol] 176 U/L Critically high 46-116 [facility] Comment on above: Performed By: #### C T/NGNA #### [facility] [address] [address] [address] Donis Mancini ALT [Catalytic activity/Vol] 20 U/L Normal 14-59 [facility] Comment on above: Performed By: #### C T/NGNA #### [facility] [address] [address] [address] Donis Mancini Anion gap [Moles/Vol] 12.9 mmol/L Normal [facility] Comment on above: Performed By: #### C T/NGNA #### [facility] [address] [address] [address] Donis Mancini AST [Catalytic activity/Vol] 20 U/L Normal 15-37 [facility] Comment on above: Performed By: #### C T/NGNA #### [facility] [address] [address] [address] Donis Mancini Bilirubin [Mass/Vol] 0.1 mg/dL Critically low 0.2-1.0 [facility] Comment on above: Performed By: #### C T/NGNA #### [facility] [address] [address] [address] Donis Mancini Calcium [Mass/Vol] 9.1 mg/dL Normal 8.5-10.1 [facility] Comment on above: Performed By: #### C T/NGNA #### [facility] [address] [address] [address] Donis Mancini Chloride [Moles/Vol] 104 mmol/L Normal 98-107 [facility] Comment on above: Performed By: #### C T/NGNA #### [facility] [address] [address] [address] Donis Mancini CO2 [Moles/Vol] 22.9 mmol/L Normal 21.0-32.0 [facility] Comment on above: Performed By: #### C T/NGNA #### [facility] [address] [address] [address] Donis Mancini Creatinine [Mass/Vol] 0.43 mg/dL Critically low 0.55-1.02 [facility] Comment on above: Performed By: #### C T/NGNA #### [facility] [address] [address] [address] Donis Mancini EGFR-AF EMIRATI >60 Normal >=60 [facility] Comment on above: Performed By: #### C T/NGNA #### [facility] [address] [address] [address] Donis Mancini EGFR-NON AF EMIRATI >60 Normal >=60 [facility] Comment on above: Performed By: #### C T/NGNA #### [facility] [address] [address] [address] Donis Mancini Globulin (S) [Mass/Vol] 4.2 g/dL Normal [facility] Comment on above: Performed By: #### C T/NGNA #### [facility] [address] [address] [address] Donis Mancini Glucose [Mass/Vol] 95 mg/dL Normal 74-106 [facility] Comment on above: Performed By: #### C T/NGNA #### [facility] [address] [address] [address] Donis Mancini Potassium [Moles/Vol] 3.8 mmol/L Normal 3.5-5.[address] [facility] Comment on above: Performed By: #### C T/NGNA #### [facility] [address] [address] [address] Donis Mancini Protein [Mass/Vol] 6.9 g/dL Normal 6.4-8.2 [facility] Comment on above: Performed By: #### C T/NGNA #### [facility] [address] [address] [address] Donis Mancini Sodium [Moles/Vol] 136 mmol/L Normal 136-145 [facility] Comment on above: Performed By: #### C T/NGNA #### [facility] [address] [place] [address] Dr. Donis Mancini Urea nitrogen [Mass/Vol] 10.0 mg/dL Normal 7.0-18.[address] [facility] Comment on above: Performed By: #### C T/NGNA #### [facility] [address] [place] [address] Dr. Donis Mancini Urea nitrogen/Creatinine [Mass ratio] 23.3 mg/mg Normal [facility] Comment on above: Performed By: #### C T/NGNA #### [facility] [address] [place] [address] Dr. Donis Mancini URIC ACID SERUMon 08-09-2022 Urate [Mass/Vol] 3.6 mg/dL Normal 2.6-6.0 [facility] Comment on above: Performed By: #### C T/NGNA #### [facility] [address] [place] [address] Dr. Donis Mancini CBC AUTO DIFFon 08-07-2022 BASO # 0.0 103/ul Normal 0.0-0.1 [facility] Comment on above: Performed By: #### U AMIC #### [facility] [address] [place] [address] Dr. Donis Mancini Basophils/100 WBC (Bld) 0.2 % Normal 0.2-2.0 [facility] Comment on above: Performed By: #### U AMIC #### [facility] [address] [place] [address] Dr. Donis Mancini EO # 0.2 103/ul Normal 0.0-0.[address] [facility] Comment on above: Performed By: #### U AMIC #### [facility] [address] [place] [address] Dr. Donis Mancini Eosinophils/100 WBC (Bld) 1.8 % Normal 0.9-7.[address] [facility] Comment on above: Performed By: #### U AMIC #### [facility] [address] [place] [address] Dr. Donis Mancini Erythrocyte distribution width (RBC) [Ratio] 12.3 % Normal 11.0-15.0 [facility] Comment on above: Performed By: #### U AMIC #### [facility] [address] [place] [address] Dr. Donis Mancini Hematocrit (Bld) [Volume fraction] 45.7 % Normal 36.0-48.0 [facility] Comment on above: Performed By: #### U AMIC #### [facility] [address] [place] [address] Dr. Donis Mancini Hemoglobin (Bld) [Mass/Vol] 16.0 g/dL Normal 12.0-16.0 [facility] Comment on above: Performed By: #### U AMIC #### [facility] [address] [place] [address] Dr. Donis Mancini IG # 0.07 10e3/ul Critically high 0.00-0.03 [facility] Comment on above: Performed By: #### U AMIC #### [facility] [address] [place] [address] Dr. Donis Mancini IG % 0.5 % Normal 0.0-0.5 [facility] Comment on above: Performed By: #### U AMIC #### [facility] [address] [place] [address] Dr. Donis Mancini LYMPH # 1.5 103/ul Normal 1.2-3.8 [facility] Comment on above: Performed By: #### U AMIC #### [facility] [address] [place] [address] Dr. Donis Mancini Lymphocytes/100 WBC (Bld) 11.2 % Critically low 20.5-60.0 [facility] Comment on above: Performed By: #### U AMIC #### [facility] [address] [place] [address] Dr. Donis Mancini MANUAL DIFF REQ NO Normal [facility] Comment on above: Performed By: #### U AMIC #### [facility] [address] [place] [address] Dr. Donis Mancini MCH (RBC) [Entitic mass] 32.0 pg Normal 26.7-34.0 [facility] Comment on above: Performed By: #### U AMIC #### [facility] [address] [address] [address] Donis Mancini MCHC (RBC) [Mass/Vol] 35.0 g/dL Normal 29.9-35.[address] [facility] Comment on above: Performed By: #### U AMIC #### [facility] [address] [place] [address] Dr. Donis Mancini MCV (RBC) [Entitic vol] 91.4 fL Normal 81.0-99.[address] [facility] Comment on above: Performed By: #### U AMIC #### [facility] [address] [place] [address] Dr. Donis Mancini MONO # 0.9 103/ul Critically high 0.3-0.8 [facility] Comment on above: Performed By: #### U AMIC #### [facility] [address] [place] [address] Dr. Donis Mancini Monocytes/100 WBC (Bld) 6.3 % Normal 1.7-12.0 [facility] Comment on above: Performed By: #### U AMIC #### [facility] [address] [place] [address] Dr. Donis Mancini NEUT # 10.9 103/ul Critically high 1.4-6.5 [facility] Comment on above: Performed By: #### U AMIC #### [facility] [address] [place] [address] Dr. Donis Mancini Neutrophils/100 WBC (Bld) 80.0 % Critically high 43.0-75.[address] [facility] Comment on above: Performed By: #### U AMIC #### [facility] [address] [place] [address] Dr. Donis Mancini Platelet mean volume (Bld) [Entitic vol] 11.5 fL Normal 9.5-13.[address] [facility] Comment on above: Performed By: #### U AMIC #### [facility] [address] [place] [address] Dr. Donis Mancini PLT 182 103/ul Normal 150-450 [facility] Comment on above: Performed By: #### U AMIC #### [facility] [address] [address] [address] Donis Mancini RBC 5.00 106/ul Normal 4.20-5.40 [facility] Comment on above: Performed By: #### U AMIC #### [facility] [address] [address] [address] Donis Mancini WBC 13.6 103/ul Critically high 4.0-11.0 [facility] Comment on above: Performed By: #### U AMIC #### [facility] [address] [address] [address] Donis Mancini LDHon 08-07-2022 LDH 171 U/L Normal 81-234 [facility] Comment on above: Performed By: #### C MP, URIC, LDH ####[facility] [address]etfsd[address] [place] [address]DrGene Mancini PROF 14(COMP METB)on 022 Albumin [Mass/Vol] 2.9 g/dL Critically low 3.4-5.0 [facility] Comment on above: Performed By: #### C MP, URIC, LDH ####[facility] [address]owwvxshd[address] [place] [address]DrGene Mancini Albumin/Globulin [Mass ratio] 0.6 {ratio} Normal [facility] Comment on above: Performed By: #### C MP, URIC, LDH ####[facility] A[address]imzprp[address] [place] [address]DrGene Mancini ALP [Catalytic activity/Vol] 192 U/L Critically high 46-116 [facility] Comment on above: Performed By: #### C MP, URIC, LDH ####[facility] Euwpasrrnh05[address] [place] [address]DrGene Mancini ALT [Catalytic activity/Vol] 23 U/L Normal 14-59 [facility] Comment on above: Performed By: #### C MP, URIC, LDH ####[facility] [address]jyvh[address] [place] [address]Dr. Donis Mancini Anion gap [Moles/Vol] 14.4 mmol/L Normal [facility] Comment on above: Performed By: #### C MP, URIC, LDH ####[facility] [address]cn[address]btfe[address] [place], [place] [address]Dr. Donis Mancini AST [Catalytic activity/Vol] 23 U/L Normal 15-37 [facility] Comment on above: Performed By: #### C MP, URIC, LDH ####[facility] [address]mbudidni[address] [place], [place] [address]Dr. Donis Mancini Bilirubin [Mass/Vol] 0.2 mg/dL Normal 0.2-1.0 [facility] Comment on above: Performed By: #### C MP, URIC, LDH ####[facility] Wmooudfbjq[address] [place], [place] [address]Dr. Donis Mancini Calcium [Mass/Vol] 9.4 mg/dL Normal 8.5-10.1 [facility] Comment on above: Performed By: #### C MP, URIC, LDH ####[facility] [address]uchq[address] [place], [place] [address]Dr. Donis Mancini Chloride [Moles/Vol] 104 mmol/L Normal 98-107 [facility] Comment on above: Performed By: #### C MP, URIC, LDH ####[facility] [address]thaou[address]cn[address] [place], [place] [address]Dr. Donis Mancini CO2 [Moles/Vol] 21.7 mmol/L Normal 21.0-32.0 [facility] Comment on above: Performed By: #### C MP, URIC, LDH ####[facility] [address]yipfoqi[address] [place], [place] [address]Dr. Donis Mancini Creatinine [Mass/Vol] 0.46 mg/dL Critically low 0.55-1.02 [facility] Comment on above: Performed By: #### C MP, URIC, LDH ####[facility] [address]emkwchkqx[address] [place], [place] [address]Dr. Donis Mancini EGFR-AF EMIRATI >60 Normal >=60 [facility] Comment on above: Performed By: #### C MP, URIC, LDH ####[facility] [address] [address]Dr. Donis Mancini EGFR-NON AF EMIRATI >60 Normal >=[address] [facility] Comment on above: Performed By: #### C MP, URIC, LDH ####[facility] [address]wft[address] [place] [address]Dr. Donis Mancini Globulin (S) [Mass/Vol] 4.6 g/dL Normal [facility] Comment on above: Performed By: #### C MP, URIC, LDH ####[facility] [address] [address]Dr. Donis Mancini Glucose [Mass/Vol] 89 mg/dL Normal 74-106 [facility] Comment on above: Performed By: #### C MP, URIC, LDH ####[facility] Cejegratbx[address] [place], [place] [address]Dr. Donis Mancini Potassium [Moles/Vol] 4.1 mmol/L Normal 3.5-5.[address] [facility] Comment on above: Performed By: #### C MP, URIC, LDH ####[facility] M[address]gqxhmkq[address] [place], [place] [address]Dr. Donis Mancini Protein [Mass/Vol] 7.5 g/dL Normal 6.4-8.2 [facility] Comment on above: Performed By: #### C MP, URIC, LDH ####[facility] [address]hognnhmpy[address] [place] [address]Dr. Donis Mancini Sodium [Moles/Vol] 136 mmol/L Normal 136-145 [facility] Comment on above: Performed By: #### C MP, URIC, LDH ####[facility] [address]hz[address]jzdq[address] [place], [place] [address]Dr. Donis Mancini Urea nitrogen [Mass/Vol] 8.0 mg/dL Normal 7.0-18.0 [facility] Comment on above: Performed By: #### C MP, URIC, LDH ####[facility] Ogrkq[address]fdi[address] [place], [place] [address]Dr. Donis Mancini Urea nitrogen/Creatinine [Mass ratio] 17.4 mg/mg Normal [facility] Comment on above: Performed By: #### C MP, URIC, LDH ####[facility] [address]pyc[address] [address]Dr. Donis Mancini PROTIMEon 08-07-2022 INR Coag (PPP) [Relative time] {INR} Normal [facility] Comment on above: Performed By: #### U AMIC #### [facility] [address] [place] [address] Dr. Donis Mancini INR GUIDELINES SEE BELOW Normal [facility] Comment on above: Result Comment: NICCI RED INR: 2.0 - 3.0 CONDITIONS NOT LISTED BELOW 2.5 - 3.5 FOR PROSTHETIC HEART VALVE REPLACEMENT 2.5 - 3.5 RECURRENT THROMBOSIS Performed By: #### U AMIC #### [facility] [address] [place] [address] Dr. Donis Mancini PT Coag (PPP) [Time] 9.8 s Normal 9.0-11.6 [facility] Comment on above: Performed By: #### U AMIC #### [facility] [address] [place] [address] Dr. Donis Mancini PTTon 08-07-2022 aPTT Coag (Bld) [Time] 28.5 s Normal 22.3-36.2 Th [facility] Comment on above: Performed By: #### U AMIC #### [facility] [address] [place] [address] Dr. Donis Mancini UA (CLEAN/CATCH) ROD POINTER/MICRO I F IND.on 08-07-2022 Bilirubin Ql (U) Negative Normal NEGATIVE [facility] Comment on above: Performed By: #### U AMIC #### [facility] [address] [place] [address] Dr. Donis Mancini Clarity (U) CLEAR Normal CLEAR [facility] [facility] Comment on above: Performed By: #### U AMIC #### [facility] [address] [place] [address] Dr. Donis Mancini Color (U) LT. YELLOW Normal YELLOW [facility] Comment on above: Performed By: #### U AMIC #### [facility] [address] [address] [address] Donis Mancini Glucose Ql (U) Negative Normal NEGATIVE [facility] Comment on above: Performed By: #### U AMIC #### [facility] [address] [address] [address] Donis Mancini Hemoglobin Ql (U) Negative Normal NEGATIVE [facility] Comment on above: Performed By: #### U AMIC #### [facility] [address] [address] [address] Donis Mancini Ketones Ql (U) Negative Normal NEGATIVE [facility] Comment on above: Performed By: #### U AMIC #### [facility] [address] [address] [address] Donis Mancini LEUKOCYTES Negative Normal NEGATIVE [facility] Comment on above: Performed By: #### U AMIC #### [facility] [address] [address] [address] Donis Mancini Nitrite Ql (U) Negative Normal NEGATIVE [facility] Comment on above: Performed By: #### U AMIC #### [facility] [address] [address] [address] Donis Mancini pH (U) 7.0 [pH] Normal 5-9 [facility] Comment on above: Performed By: #### U AMIC #### [facility] [address] [address] [address] Donis Mancini SPEC GRAVITY <=1.005 Abnormal 1.005-<=1.02 5 [facility] Comment on above: Performed By: #### U AMIC #### [facility] [address] [address] [address] Donis Mancini UA PROTEIN Negative Normal NEGATIVE/ TRACE [facility] Comment on above: Performed By: #### U AMIC #### [facility] [address] [address] [address] Donis Mancini UR MICRO IND NOT INDICATED Normal [facility] Comment on above: Performed By: #### U AMIC #### [facility] [address] [place] [address] Dr. Donis Mancini Urobilinogen Qn (U) 0.2 {Sarah'U}/dL Normal 0.2 - 1. 0 [facility] Comment on above: Performed By: #### U AMIC #### [facility] [address] [place] [address] Dr. Donis Mancini URIC ACID SERUMon 08-07-2022 Urate [Mass/Vol] 3.8 mg/dL Normal 2.6-6.0 [facility] Comment on above: Performed By: #### C MP, URIC, LDH ####[facility] [address] [address]Dr. Donis Mancini URINE T PROTEIN CREAT RATIOo n 08-07-2022 UR TOTAL PROTEIN <6.0 Normal <=12.0 [facility] Comment on above: Performed By: #### C T/NGNA #### [facility] [address] [place] [address] Dr. Donis Mancini URINE CREAT 13.45 mg/dL Critically low 20.00-300.00 [facility] Comment on above: Performed By: #### C T/NGNA #### [facility] [address] [place] [address] Dr. Donis Mancini US PREG BIOPHY W [...] by: COCO STERN Date: 2022-08-01 08:31 Normal [facility] CHLAMYDIA/GONOCOCCUS INESSA (SW AB/URINE/PAPon 07-31-2022 Chlamydia trachomatis, INESSA Negative Normal Negative [facility] Comment on above: Performed By: #### C T/NGNA #### [facility] [address] [address] [address] Donis Mancini Neisseria gonorrhoeae, INESSA Negative Normal Negative [facility] Comment on above: Performed By: #### C T/NGNA #### [facility] [address] [address] [address] Donis Mancini VAGINITIS/VAGINOSIS DNA PROB Domenic 07-31-2022 Simeon species Negative Normal Negative [facility] Comment on above: Performed By: #### V AGINT ####[facility] [address] [address]Dr. Donis Mancini Gardnerella vaginalis Negative Normal Negative [facility] Comment on above: Performed By: #### V AGINT ####[facility] [address] [address]Dr. Donis Mancini Trichomonas vaginalis Negative Normal Negative [facility] Comment on above: Performed By: #### V AGINT ####[facility] [address] [address]DrGene Mancini GROUP B STREP CULTUREon S. agalactiae Ag Ql (Unsp spec) Culture Observations: NEGATIVE FOR GROUP B STREPTOCOCCUS. Normal [facility] Comment on above: Performed By: #### G BSCX #### [facility] [address] [place] [address] Dr. Donis Mancini US PREG BIOPHY W [...] STERN Date: 2022-07-25 09:[address] [facility] US PREG GROWTHon 07-11-2022 US PREG [...] BENNETT Date: 2022-07-11 19:[address] [facility] Covid-19 PCR (CVDTB)on 06-26 SARS-CoV-2 (COVID-19) RNA INESSA+probe Ql (Unsp spec) Not detected Normal NOT DETECTED [facility] Comment on above: Result Comment: When [...] for this test is supported by the [employer] Supervisor of Health and Human Service's declaration [...] Performed By: #### C T/JAYNA #### [facility] [address] [address] [address] Donis Mancini GTT 3 HR PREGon 06-03-2022 Glucose [Mass/Vol] 94 mg/dL Normal 74-106 [facility] Comment on above: Performed By: #### U AMIC #### [facility] [address] [address] [address] Donis Mancini Glucose [Mass/Vol] 147 mg/dL Normal [facility] Comment on above: Performed By: #### U AMIC #### [facility] [address] [address] [address] Donis Mancini Glucose [Mass/Vol] 159 mg/dL Normal [facility] Comment on above: Performed By: #### U AMIC #### [facility] [address] [address] [address] Donis Mancini Glucose [Mass/Vol] 151 mg/dL Normal [facility] Comment on above: Performed By: #### U AMIC #### [facility] [address] [address] [address] Donis Mancini GLUCOSE - 1HRon 05-21-2022 Glucose [Mass/Vol] 141 mg/dL Critically high 74-106 [facility] Comment on above: Performed By: #### U AMIC #### [facility] [address] [address] [address] Donis Mancini HEMOGRAM AND PLATELon 2021 Hematocrit (Bld) [Volume fraction] 39.1 % Normal 36.0-48.0 [facility] Comment on above: Performed By: #### U AMIC #### [facility] [address] [address] [address] Donis Mancini Hemoglobin (Bld) [Mass/Vol] 13.1 g/dL Normal 12.0-16.0 [facility] Comment on above: Performed By: #### U AMIC #### [facility] [address] [address] [address] Donis Mancini MCH (RBC) [Entitic mass] 32.3 pg Normal 26.7-34.0 [facility] Comment on above: Performed By: #### U AMIC #### [facility] [address] [address] [address] Donis Mancini MCHC (RBC) [Mass/Vol] 33.5 g/dL Normal 29.9-35.2 [facility] Comment on above: Performed By: #### U AMIC #### [facility] [address] [address] [address] Donis Mancini MCV (RBC) [Entitic vol] 96.5 fL Normal 81.0-99.0 [facility] Comment on above: Performed By: #### U AMIC #### [facility] [address] [address] [address] Donis Mancini PLT 220 103/ul Normal 150-450 [facility] Comment on above: Performed By: #### U AMIC #### [facility] [address] [address] [address] Donis Mancini RBC 4.05 106/ul Critically low 4.20-5.40 [facility] Comment on above: Performed By: #### U AMIC #### [facility] [address] [address] [address] Donis Mancini WBC 12.8 103/ul Critically high 4.0-11.0 [facility] Comment on above: Performed By: #### U AMIC #### [facility] [address] [address] [address] Donis Mancini US PREG BIOPHYSICAL NO [...] BENNETT Date: 2022-05-11 06:[address] [facility] CULTURE URINEon 05-10-2022 CULTURE URINE Culture Observations: MODERATE GROWTH OF MIXED GENITAL RAMBO. NO POTENTIAL PATHOGENS SEEN. Normal [facility] Comment on above: Performed By: #### U RCX #### [facility] [address] [address] [address] Donis Mancini UA RANDOM W/MICROSCOPICon BACTERIA LARGE Abnormal NONE SEEN [facility] Comment on above: Performed By: #### U AMIC ####[facility] [address] [address]Dr. Donis Mancini Bilirubin Ql (U) Negative Normal NEGATIVE [facility] Comment on above: Performed By: #### U AMIC ####[facility] [address] [address]Dr. Donis Mancini CAST NONE SEEN Normal NONE SEEN [facility] Comment on above: Performed By: #### U AMIC ####[facility] [address] [address]Dr. Donis Mancini Clarity (U) CLEAR Normal CLEAR [facility] Comment on above: Performed By: #### U AMIC ####[facility] [address] [address]Dr. Donis Mancini Color (U) YELLOW Normal YELLOW [facility] Comment on above: Performed By: #### U AMIC ####[facility] [address] [address]Dr. Donis Mancini Crystals LM Nom (Urine sed) NONE SEEN Normal NONE SEEN [facility] Comment on above: Performed By: #### U AMIC ####[facility] [address] [address]Dr. Donis Mancini Epithelial cells LM Ql (Urine sed) MODERATE Abnormal NONE SEEN /RARE [facility] Comment on above: Performed By: #### U AMIC ####[facility] [address] [address]Dr. Donis Mancini Glucose Ql (U) 250 mg/dl Abnormal NEGATIVE [facility] Comment on above: Performed By: #### U AMIC ####[facility] [address] [address]Dr. Donis Mancini Hemoglobin Ql (U) TRACE-INTACT Abnormal NEGATIVE [facility] Comment on above: Performed By: #### U AMIC ####[facility] [address] [place], [place] [address]Dr. Donis Mancini Ketones Ql (U) Negative Normal NEGATIVE [facility] Comment on above: Performed By: #### U AMIC ####[facility] [address] [place], [place] [address]Dr. Donis Mancini LEUKOCYTES LARGE Abnormal NEGATIVE [facility] Comment on above: Performed By: #### U AMIC ####[facility] [address] [place], [place] [address]Dr. Donis Mancini MUCOUS NONE SEEN Normal NONE SEEN [facility] Comment on above: Performed By: #### U AMIC ####[facility] [address] [place], [place] [address]Dr. Donis Mancini Nitrite Ql (U) Negative Normal NEGATIVE [facility] Comment on above: Performed By: #### U AMIC ####[facility] [address] [place], [place] [address]Dr. Donis Mancini pH (U) 6.0 [pH] Normal 5-9 [facility] Comment on above: Performed By: #### U AMIC ####[facility] Asops[address] [place], [place] [address]Dr. Donis Mancini RBC 2-5 Abnormal 0-[address] [facility] Comment on above: Performed By: #### U AMIC ####[facility] [address] [place], [place] [address]Dr. Donis Mancini SPEC GRAVITY <=1.005 Abnormal 1.005-<=1.[address] [facility] Comment on above: Performed By: #### U AMIC ####[facility] [address] [place], [place] [address]Dr. Donis Manicni UA PROTEIN Negative Normal NEGATIVE/ TRACE [facility] Comment on above: Performed By: #### U AMIC ####[facility] [address] [place], [place] [address]Dr. Donis Mancini Urobilinogen Qn (U) 0.2 {Sarah'U}/dL Normal 0.2 - 1. [address] [facility] Comment on above: Performed By: #### U AMIC ####[facility] [address] [address]Dr. Donis Mancini WBC 10-20 Abnormal NONE SEEN [facility] Comment on above: Performed By: #### U AMIC ####[facility] [address] [address]Dr. Donis Mancini CULTURE URINEon 04-27-2022 CULTURE URINE Culture Observations: LIGHT GROWTH OF MIXED GENITAL RAMBO. NO POTENTIAL PATHOGENS SEEN. Normal [facility] Comment on above: Performed By: #### U RCX ####[facility] [address] [address]Dr. Donis Mancini UA (CLEAN/CATCH) ROD POINTER/MICRO I F IND.on 04-27-2022 Bilirubin Ql (U) Negative Normal NEGATIVE [facility] Comment on above: Performed By: #### U ACSIND ICRO ####[facility] [address] [address]Dr. Donsi Mancini Clarity (U) CLEAR Normal CLEAR [facility] Comment on above: Performed By: #### U ACSWENDY ICRO ####[facility] [address]xsph[address] [address]Dr. Donis Mancini Color (U) LT. YELLOW Normal YELLOW [facility] Comment on above: Performed By: #### U ACSIND ICRO ####[facility] [address] [place], [place] [address]Dr. Donis Mancini Glucose Ql (U) Negative Normal NEGATIVE [facility] Comment on above: Performed By: #### U ACSWENDY ICRO ####[facility] [address]ft[address] [place], [place] [address]Dr. Donis Mancini Hemoglobin Ql (U) Negative Normal NEGATIVE [facility] Comment on above: Performed By: #### U ACSIND UMICRO ####[facility] [address] [place], [place] [address]Dr. Donis Mancini Ketones Ql (U) Negative Normal NEGATIVE [facility] Comment on above: Performed By: #### U ACSWENDY UMICRO ####[facility] [address] [address]Dr. Donis Mancini LEUKOCYTES SMALL Abnormal NEGATIVE [facility] Comment on above: Performed By: #### U ACSWENDY UMICRO ####[facility] [address] [address]Dr. Donis Mancini Nitrite Ql (U) Negative Normal NEGATIVE [facility] Comment on above: Performed By: #### U ACSWENDY UMICRO ####[facility] [address]ex[address] [address]Dr. Donis Mancini pH (U) 7.0 [pH] Normal 5-9 [facility] Comment on above: Performed By: #### U NELSON UMICRO ####[facility] [address]ib[address] [address]Dr. Donis Mancini SPEC GRAVITY 1.015 Normal 1.005-<=1.02 5 [facility] Comment on above: Performed By: #### U NELSON UMICRO ####[facility] [address] [place], [place] [address]Dr. Donis Mancini UA PROTEIN Negative Normal NEGATIVE/ TRACE [facility] Comment on above: Performed By: #### U ACSWENDY UMICRO ####[facility] [address]re[address] [address]Dr. Donis Mancini UR MICRO IND INDICATED Normal [facility] Comment on above: Performed By: #### U ACSWENDY UMICRO ####[facility] [address]um[address] [address]Dr. Donis Mancini Urobilinogen Qn (U) 0.2 {Sarah'U}/dL Normal 0.2 - 1. 0 [facility] Comment on above: Performed By: #### U ACSWENDY UMICRO ####[facility] [address] [address]Dr. Donis Mancini URINE MICROSCOPIC ONLYon BACTERIA MODERATE Abnormal NONE SEEN [facility] Comment on above: Performed By: #### U ACSWENDY, UMICRO ####[facility] [address] [address]Dr. Donis Mancini Bacteria identified Cx Nom (U) INDICATED Normal [facility] Comment on above: Performed By: #### U ACSIND, UMICRO ####[facility] [address] [address]Dr. Donis Mancini CAST NONE SEEN Normal NONE SEEN [facility] Comment on above: Performed By: #### U ACSWENDY, UMICRO ####[facility] [address] [address]Dr. Donis Mancini Crystals LM Nom (Urine sed) NONE SEEN Normal NONE SEEN [facility] Comment on above: Performed By: #### U ACSWENDY, UMICRO ####[facility] [address] [address]Dr. Donis Mancini Epithelial cells LM Ql (Urine sed) MODERATE Abnormal NONE SEEN /RARE [facility] Comment on above: Performed By: #### U ACSWENDY, UMICRO ####[facility] [address] [address]Dr. Donis Mancini MUCOUS NONE SEEN Normal NONE SEEN [facility] Comment on above: Performed By: #### U ACSWENDY, UMICRO ####[facility] [address] [address]Dr. Donis Mancini RBC NONE SEEN Abnormal 0-[address] [facility] Comment on above: Performed By: #### U ACSWENDY, UMICRO ####[facility] [address] [address]Dr. Donis Mancini WBC 2-5 Abnormal NONE SEEN [facility] Comment on above: Performed By: #### U ACSWENDY, UMICRO ####[facility] [address] [address]Dr. Donis Mancini US KIDNEYSon 04-27-2022 US KIDNEYS [...] ANDREAS AN Date: 2022-04-27 17:[address] [facility] CULTURE URINEon 04-16-2022 CULTURE URINE Isolate [...] Trimethoprim/Sulfame thoxazole <=20 S F Normal [facility] Comment on above: Performed By: #### U RCX #### [facility] [address] [place] [address] Dr. Donis Mancini US PREG ANATOMY SINGLEon [...] BENNETT Date: 2022-04-12 22:[address] [facility] UA RANDOM W/MICROSCOPICon BACTERIA SMALL Abnormal NONE SEEN [facility] Comment on above: Performed By: #### U AMIC #### [facility] [address] [place] [address] Dr. Donis Mancini Bilirubin Ql (U) Negative Normal NEGATIVE [facility] Comment on above: Performed By: #### U AMIC #### [facility] [address] [address] [address] Donis Mancini CAST NONE SEEN Normal NONE SEEN [facility] Comment on above: Performed By: #### U AMIC #### [facility] [address] [address] [address] Donis Mancini Clarity (U) CLEAR Normal CLEAR [facility] Comment on above: Performed By: #### U AMIC #### [facility] [address] [address] [address] Donis Mancini Color (U) LT. YELLOW Normal YELLOW [facility] Comment on above: Performed By: #### U AMIC #### [facility] [address] [address] [address] Donis Mancini Crystals LM Nom (Urine sed) NONE SEEN Normal NONE SEEN [facility] Comment on above: Performed By: #### U AMIC #### [facility] [address] [address] [address] Donis Mancini Epithelial cells LM Ql (Urine sed) FEW Abnormal NONE SEEN /RARE [facility] Comment on above: Performed By: #### U AMIC #### [facility] [address] [address] [address] Donis Mancini Glucose Ql (U) Negative Normal NEGATIVE [facility] Comment on above: Performed By: #### U AMIC #### [facility] [address] [place] [address] Dr. Donis Mancini Hemoglobin Ql (U) Negative Normal NEGATIVE [facility] Comment on above: Performed By: #### U AMIC #### [facility] [address] [address] [address] Donis Mancini Ketones Ql (U) Negative Normal NEGATIVE [facility] Comment on above: Performed By: #### U AMIC #### [facility] [address] [address] [address] Donis Mancini LEUKOCYTES LARGE Abnormal NEGATIVE [facility] Comment on above: Performed By: #### U AMIC #### [facility] [address] [address] [address] Donis Mancini MUCOUS NONE SEEN Normal NONE SEEN [facility] Comment on above: Performed By: #### U AMIC #### [facility] [address] [address] [address] Donis Mancini Nitrite Ql (U) Negative Normal NEGATIVE [facility] Comment on above: Performed By: #### U AMIC #### [facility] [address] [place] [address] Dr. Donis Mancini pH (U) 5.5 [pH] Normal 5-[address] [facility] Comment on above: Performed By: #### U AMIC #### [facility] [address] [address] [address] Donis Mancini RBC 0-2 Normal 0-[address] [facility] Comment on above: Performed By: #### U AMIC #### [facility] [address] [address] [address] Donis Mancini SPEC GRAVITY <=1.005 Abnormal 1.005-<=1.02 5 [facility] Comment on above: Performed By: #### U AMIC #### [facility] [address] [address] [address] Donis Mancini UA PROTEIN Negative Normal NEGATIVE/ TRACE [facility] Comment on above: Performed By: #### U AMIC #### [facility] [address] [address] [address] Donis Mancini Urobilinogen Qn (U) 0.2 {Sarah'U}/dL Normal 0.2 - 1. 0 [facility] Comment on above: Performed By: #### U AMIC #### [facility] [address] [address] [address] Donis Mancini WBC 5-10 Abnormal NONE SEEN [facility] Comment on above: Performed By: #### U AMIC #### [facility] [address] [address] [address] Donis Mancini HEP B SURFACE ANTIGEN SCREEN on 01-23-2022 HBsAg Screen Negative Normal Negative [facility] Comment on above: Performed By: #### U AMIC #### [facility] [address] [address] [address] Donis Mancini HEPATITIS C VIRUS AB W/ REFL EX QUANTon 01-23-2022 HCV AB 0.1 s/co ratio Normal 0.0-0.9 [facility] Comment on above: Performed By: #### H CVPCRR ####[facility] [address] [address]Dr. Donis Mancini Interpretation: Comment Normal [facility] Comment on above: Result Comment: Nega tive Not infected with HCV, unless recent infection is suspected or other evidence exists to indicate HCV infection. Performed By: #### H CVPCRR ####[facility] [address] [place] [id number]. Donis Mancini HIV 1 AND 2 WITH REFLEXon HIV Screen 4th Generation wRfx Non-Reactive Normal Non Reactive [facility] Comment on above: Result Comment: HIV Negative HIV-1/HIV-2 antibodies and HIV-1 p24 antigen were NOT detected. There is no laboratory evidence of HIV infection. Performed By: #### H IV12 ####[facility] [address] [place] [id number]. Donis Mancini RPR QUANTon 01-23-2022 Rapid Plasma Reagin, Quant Non-Reactive Normal NonRea<1:1 [facility] Comment on above: Result Comment: Ashley catalan Note: This test does not meet current guidelines for screening and diagnosis of syphilis. This test is intended for following treatment response in patients being treated for syphilis infection. To screen for syphilis infection, a reflex cascade that includes both RPR and a treponema-specific assay should be utilized, such as Treponema pallidum (Syphilis) Screening [place] (395116) or Rapid Plasma Reagin (RPR) Test With Reflex to Quantitative RPR and Confirmatory Treponema pallidum Antibodies (542903). Performed By: #### R PRQ ####[facility] [address] [place] [address]Dr. Donis Mancini RUBELLA AB IGGon 01-23-2022 Rubella Antibodies, IgG 1.60 index Normal Immune >0.99 [facility] Comment on above: Result Comment: Non- immune <0.90 Equivocal 0.90 - 0.99 Immune >0.99 Performed By: #### U AMIC #### [facility] [address] [place] [address] Dr. Donis Mancini CBC AUTO DIFFon 01-22-2022 BASO # 0.1 103/ul Normal 0.0-0.1 [facility] Comment on above: Performed By: #### U AMIC #### [facility] [address] [place] [address] Dr. Donis Mancini Basophils/100 WBC (Bld) 0.5 % Normal 0.2-2.0 [facility] Comment on above: Performed By: #### U AMIC #### [facility] [address] [place] [address] Dr. Donis Mancini EO # 0.6 103/ul Normal 0.0-0.7 [facility] Comment on above: Performed By: #### U AMIC #### [facility] [address] [place] [address] Dr. Donis Mancini Eosinophils/100 WBC (Bld) 5.1 % Normal 0.9-7.0 [facility] Comment on above: Performed By: #### U AMIC #### [facility] [address] [place] [address] Dr. Donis Mancini Erythrocyte distribution width (RBC) [Ratio] 12.0 % Normal 11.0-15.0 [facility] Comment on above: Performed By: #### U AMIC #### [facility] [address] [place] [address] Dr. Donis Mancini Hematocrit (Bld) [Volume fraction] 45.8 % Normal 36.0-48.0 [facility] Comment on above: Performed By: #### U AMIC #### [facility] [address] [place] [address] Dr. Donis Mancini Hemoglobin (Bld) [Mass/Vol] 15.3 g/dL Normal 12.0-16.0 [facility] Comment on above: Performed By: #### U AMIC #### [facility] [address] [place] [address] Dr. Donis Mancini IG # 0.03 10e3/ul Normal 0.00-0.03 [facility] Comment on above: Performed By: #### U AMIC #### [facility] [address] [place] [address] Dr. Donis Mancini IG % 0.3 % Normal 0.0-0.5 [facility] Comment on above: Performed By: #### U AMIC #### [facility] [address] [place] [address] Dr. Donis Mancini LYMPH # 1.7 103/ul Normal 1.2-3.8 [facility] Comment on above: Performed By: #### U AMIC #### [facility] [address] [address] [address] Donis Mancini Lymphocytes/100 WBC (Bld) 15.9 % Critically low 20.5-60.0 [facility] Comment on above: Performed By: #### U AMIC #### [facility] [address] [address] [address] Donis Mancini MANUAL DIFF REQ NO Normal [facility] Comment on above: Performed By: #### U AMIC #### [facility] [address] [address] [address] Donis Mancini MCH (RBC) [Entitic mass] 31.5 pg Normal 26.7-34.0 [facility] Comment on above: Performed By: #### U AMIC #### [facility] [address] [place] [address] Dr. Donis Mancini MCHC (RBC) [Mass/Vol] 33.4 g/dL Normal 29.9-35.2 [facility] Comment on above: Performed By: #### U AMIC #### [facility] [address] [place] [address] Dr. Donis Mancini MCV (RBC) [Entitic vol] 94.2 fL Normal 81.0-99.0 [facility] Comment on above: Performed By: #### U AMIC #### [facility] [address] [place] [address] Dr. Donis Mancini MONO # 0.6 103/ul Normal 0.3-0.[address] [facility] Comment on above: Performed By: #### U AMIC #### [facility] [address] [place] [address] Dr. Donis Mancini Monocytes/100 WBC (Bld) 5.8 % Normal 1.7-12.[address] [facility] Comment on above: Performed By: #### U AMIC #### [facility] [address] [address] [address] Donis Mancini NEUT # 7.8 103/ul Critically high 1.4-6.5 [facility] Comment on above: Performed By: #### U AMIC #### [facility] [address] [address] [address] Donis Mancini Neutrophils/100 WBC (Bld) 72.4 % Normal 43.0-75.0 [facility] Comment on above: Performed By: #### U AMIC #### [facility] [address] [address] [address] Donis Mancini Platelet mean volume (Bld) [Entitic vol] 9.9 fL Normal 9.5-13.5 [facility] Comment on above: Performed By: #### U AMIC #### [facility] [address] [address] [address] Donis Mancini PLT 281 103/ul Normal 150-450 [facility] Comment on above: Performed By: #### U AMIC #### [facility] [address] [address] [address] Donis Mancini RBC 4.86 106/ul Normal 4.20-5.40 [facility] Comment on above: Performed By: #### U AMIC #### [facility] [address] [address] [address] Donis Mancini WBC 10.8 103/ul Normal 4.0-11.0 [facility] Comment on above: Performed By: #### U AMIC #### [facility] [id number] Donis Mancini CULTURE URINEon 01-22-2022 CULTURE URINE Culture Observations: LIGHT GROWTH OF MIXED GENITAL RAMBO. NO POTENTIAL PATHOGENS SEEN. Normal [facility] Comment on above: Performed By: #### U RCX #### [facility] [address] [address] [address] Donis Mancini GLYCOHEMOGLOBIN A1Con 2021 ADA RECOMMENDATION SEE BELOW Normal [facility] Comment on above: Result Comment: ADA RECOMMENDED LIMIT 4.0 - 6.0 ADA THERAPEUTIC TARGET < 7.0 ACTION SUGGESTED > 7.0 Performed By: #### A 1C ####[facility] [id number] [address]Dr. Donis Mancini Glucose [Mass/Vol] 100 mg/dL Normal [facility] Comment on above: Performed By: #### A 1C ####[facility] [address] [id number] Mancini HbA1c (Bld) [Mass fraction] 5.1 % Normal 4.5-6.2 [facility] Comment on above: Performed By: #### A 1C ####[facility] [address] [address]Dr. Donis Mancini SEAN BOX TEST PT SEND OUTo n 01-22-2022 SENT TO REF LAB 01/22/2022 Normal [facility] Comment on above: Performed By: #### N BOX ####[facility] [address] [address]DrGene Mancini TYPE AND SCREENon 01-22-2022 TYPE AND SCREEN Negative Normal [facility] Comment on above: Performed By: #### T NS #### [facility] [address] [address] [address] Donis Mancini US PREG TVon 01-17-2022 [...] STERN Date: 2022-01-17 09:[address] [facility] Provider Letteron 04-06-2021 Provider Letter April 06, 2021 Dear Vimal, We have been trying to reach you with no success. It is important that you return our call regarding your appointment upon receiving this letter. Also, at the time of your call, please provide us with your current information. Thank you for your prompt attention to this matter. Sincerely, [facility] [place] [address] Normal [facility] Ambulatory Clinical Summaryo n 03-10-2021 Ambulatory Clinical Summary {[id number]}CD:[id number] [facility] Ambulatory Clinical Summaryo 03-05-2021 Ambulatory Clinical Summary {[id number]}CD:[id number] [facility] Gynecology Phone [...] communication with the patient located at [address] [place] [address] [place] [phone], with no one else. If it is [...] Ordered: Telephone Est 5 to 10 minutes [id number] Follow-up With When Contact Information Joycelyn RENNER In [address] [place] [address]- Additional Instructions: Problem List/Past Medical History Ongoing Contraception management Visit for routine obstetrics gyn physician exam Historical Blood transfusion Lead poisoning Procedure/Surgical [...] adult vaccine 2001 Recorded Normal [facility] Comment on above: Result Comment: Elec tronically Signed By: ISABEL JACOBS, Joycelyn\.jessica\Date and Time Signed: 03/05/21 16:35 EDT Ambulatory Clinical Summaryo n 03-04-2021 Ambulatory Clinical Summary {[id number]}CD:[id number] Normal [facility] Coding Summary.on 12-18-2020 Coding Summary. CODING DATE: 12/18/2020 FINAL [facility] DSC STATUS: Home (Routine DC) PAYOR: [place] ADMIT DX: REASON FOR VISIT DX: U07.1 [...] Saved: 12/18/2020 12:44 pm Normal [facility] Physician Orderon 12-16-2020 Physician Order [id number] #[id number]:127 Normal [facility] Rapid COVID Antigen ([facility])on 12-16-2020 Rapid COV Int NEG Ctl Pass Normal [facility] Comment on above: Performed By: #### 2 [id number] #### [facility] [address] [place] [address] Rapid COV Int POS Ctl Pass Normal [facility] Comment on above: Performed By: #### 2 [id number] #### [facility] [address] [place] [address] SARS-CoV-2 (COVID-19) RNA INESSA+probe Ql (Unsp spec) Detected Abnormal Not Detected [facility] Comment on above: Result Comment: Left a message for callback. 12/16/2020 11:42:47 EDT Results faxed to infection control. The [employer] System for Rapid Detection of SARS-CoV-2 is [...] or revoked sooner. Performed By: #### 2 [id number] #### [facility] [address] [place] [address] Employed in Healthcare Unknown Normal [facility] Comment on above: Performed By: #### 2 [id number] #### [facility] [address] [place] [address] First Test Unknown Normal [facility] Comment on above: Performed By: #### 2 [id number] #### [facility] [address] [place] [address] Hospitalized? NO Normal [facility] Comment on above: Performed By: #### 2 [id number] #### [facility] [address] [place] [address] ICU NO Normal [facility] Comment on above: Performed By: #### 2 [id number] #### [facility] [address] [place] [address] ? Unknown Normal [facility] Comment on above: Performed By: #### 2 [id number] #### [facility] [address] [id number] Resides in a [facility] Care Setting Unknown Normal [facility] Comment on above: Performed By: #### 2 [id number] #### [facility] [address] [place] [address] Symptomatic as defined by CDC YES Normal [facility] Comment on above: Performed By: #### 2 [id number] #### [facility] [address] [place] [address] Ambulatory Clinical Summaryo 11-25-2020 Ambulatory Clinical Summary {[id number]}CD:[id number] Normal [facility] Vital Signs Date Time Vital Sign Value Performing Clinician Facility 06-26-2025 09:32-0400 Body mass index (BMI) [Ratio] 32.06 kg/m2 Nimesh Aranda [employer] Work Phone: [facility] 06-26-2025 09:32-0400 Body weight 82.1 kg Nimesh Aranda [employer] Work Phone: [facility] 06-26-2025 09:32-0400 Diastolic blood pressure 84 mm[Hg] Nimesh Rosi [employer] Work Phone: [facility] 06-26-2025 09:32-0400 Systolic blood pressure 138 mm[Hg] Nimesh Bradyerly [employer] Work Phone: [facility] 06-19-2025 15:04-0400 Body mass index (BMI) [Ratio] 31.89 kg/m2 Jose Michael DO Work Phone: [facility] 06-19-2025 15:04-0400 Body weight 81.65 kg Jose Michael DO Work Phone: [facility] 06-19-2025 15:04-0400 Diastolic blood pressure 86 mm[Hg] Jose Michael DO Work Phone: [facility] 06-19-2025 15:04-0400 Systolic blood pressure 142 mm[Hg] Jose Michael DO Work Phone: [facility] 06-12-2025 15:22-0400 Body mass index (BMI) [Ratio] 31.96 kg/m2 Rossana BISWAS Work Phone: [facility] 06-12-2025 15:22-0400 Body weight 81.83 kg Rossana Ramos PA Work Phone: [facility] 06-12-2025 15:22-0400 Diastolic blood pressure 90 mm[Hg] Rossana Rachel PA Work Phone: [facility] 06-12-2025 15:22-0400 Systolic blood pressure 144 mm[Hg] Rossana Ramos PA Work Phone: [facility] 05-28-2025 10:48-0400 Body mass index (BMI) [Ratio] 32.06 kg/m2 Jose Michael DO Work Phone: [facility] 05-28-2025 10:48-0400 Body weight 82.1 kg Jose Michael DO Work Phone: [facility] 05-28-2025 10:48-0400 Diastolic blood pressure 80 mm[Hg] Jose Michael DO Work Phone: [facility] 05-28-2025 10:48-0400 Systolic blood pressure 136 mm[Hg] Jose Michael DO Work Phone: [facility] 05-22-2025 15:02-0400 Body mass index (BMI) [Ratio] 31.49 kg/m2 Jose Michael DO Work Phone: [facility] 05-22-2025 15:02-0400 Body weight 80.63 kg Jose Michael DO Work Phone: [facility] 05-22-2025 15:02-0400 Diastolic blood pressure 92 mm[Hg] Jose Michael DO Work Phone: [facility] 05-22-2025 15:02-0400 Systolic blood pressure 138 mm[Hg] Jose Michael DO Work Phone: [facility] 05-14-2025 14:59-0400 Body mass index (BMI) [Ratio] 31.35 kg/m2 Jose Michael DO Work Phone: [facility] 05-14-2025 14:59-0400 Body weight 80.29 kg Jose Michael DO Work Phone: [facility] 05-14-2025 14:59-0400 Diastolic blood pressure 90 mm[Hg] Jose Michael DO Work Phone: [facility] 05-14-2025 14:59-0400 Systolic blood pressure 140 mm[Hg] Jose Michael DO Work Phone: [facility] 05-13-2025 16:11-0400 Body weight 79.83 kg Marjorie Rico RN Work Phone: [facility] 04-30-2025 11:52-0400 Body mass index (BMI) [Ratio] 31 kg/m2 Rossana BISWAS Work Phone: [facility] 04-30-2025 11:52-0400 Body weight 79.38 kg Rossana Rachel PA Work Phone: [facility] 04-30-2025 11:52-0400 Diastolic blood pressure 94 mm[Hg] Rossana Rachel PA Work Phone: [facility] 04-30-2025 11:52-0400 Systolic blood pressure 140 mm[Hg] Rossana De Soto PA Work Phone: [facility] 04-11-2025 15:38-0400 Body mass index (BMI) [Ratio] 30.2 kg/m2 Rossana De Soto PA Work Phone: [facility] 04-11-2025 15:38-0400 Body weight 77.34 kg Rossana Rachel PA Work Phone: [facility] 04-11-2025 15:38-0400 Diastolic blood pressure 100 mm[Hg] Rossana De Soto PA Work Phone: [facility] 04-11-2025 15:38-0400 Systolic blood pressure 142 mm[Hg] Rossana Rachel PA Work Phone: [facility] 03-14-2025 11:36-0400 Body mass index (BMI) [Ratio] 29.23 kg/m2 Jose Michael DO Work Phone: [facility] 03-14-2025 11:36-0400 Body weight 74.84 kg Jose Michael DO Work Phone: [facility] 03-14-2025 11:36-0400 Diastolic blood pressure 76 mm[Hg] Jose Michael DO Work Phone: [facility] 03-14-2025 11:36-0400 Systolic blood pressure 112 mm[Hg] Jose Michael DO Work Phone: [facility] 02-20-2025 16:08-0400 Body mass index (BMI) [Ratio] 28.83 kg/m2 Rossana Rachel PA Work Phone: [facility] 02-20-2025 16:08-0400 Body weight 73.82 kg Rossana De Soto PA Work Phone: [facility] 02-20-2025 16:08-0400 Diastolic blood pressure 82 mm[Hg] Rossana Ramos PA Work Phone: [facility] 02-20-2025 16:08-0400 Systolic blood pressure 110 mm[Hg] Rossana Ramos PA Work Phone: [facility] 01-14-2025 15:42-0400 Body mass index (BMI) [Ratio] 27.3 kg/m2 Jose Michael DO Work Phone: [facility] 01-14-2025 15:42-0400 Body weight 69.91 kg Jose Michael DO Work Phone: [facility] 01-14-2025 15:42-0400 Diastolic blood pressure 70 mm[Hg] Jose Michael DO Work Phone: [facility] 01-14-2025 15:42-0400 Systolic blood pressure 120 mm[Hg] Jose Michael DO Work Phone: [facility] 08-20-2024 10:55-0500 Body mass index (BMI) [Ratio] 25.93 kg/m2 Rossana Ramos PA Work Phone: [facility] 08-20-2024 10:55-0500 Body weight 66.41 kg Rossana Ramos PA Work Phone: [facility] 08-20-2024 10:55-0500 Diastolic blood pressure 70 mm[Hg] Rossana Ramos PA Work Phone: [facility] 08-20-2024 10:55-0500 Systolic blood pressure 120 mm[Hg] Rossana Rachel PA Work Phone: [facility] 08-06-2024 09:38-0500 Body mass index (BMI) [Ratio] 25.47 kg/m2 Jose Michael DO Work Phone: [facility] 08-06-2024 09:38-0500 Body weight 65.23 kg Jose Michael DO Work Phone: [facility] 08-06-2024 09:38-0500 Diastolic blood pressure 70 mm[Hg] Jose Michael DO Work Phone: [facility] 08-06-2024 09:38-0500 Systolic blood pressure 120 mm[Hg] Jose Michael DO Work Phone: [facility] 06-29-2024 09:12-0400 Body mass index (BMI) [Ratio] 24.58 kg/m2 Nom Nurse [facility] 06-29-2024 09:12-0400 Body weight 62.94 kg [facility] Nurse [facility] 06-29-2024 09:12-0400 Diastolic blood pressure 72 mm[Hg] [facility] Nurse [facility] 06-29-2024 09:12-0400 Systolic blood pressure 122 mm[Hg] [facility] Nurse [facility] 12-26-2022 13:45-0400 Body height 160.02 cm Jennifer Betzaida Other [employer] Other 12-26-2022 13:45-0400 Body mass index (BMI) [Ratio] 27.45 kg/m2 Jennifer Dudleymond Other [employer] Other 12-26-2022 13:45-0400 Body temperature 97 [degF] Jennifer Dudleymond Other [employer] Other 12-26-2022 13:45-0400 Body weight 70.31 kg Jennifer Betzaida Other [employer] Other 12-26-2022 13:45-0400 Diastolic blood pressure 89 mm[Hg] Jennifer Betzaida Other [employer] Other 12-26-2022 13:45-0400 Respiratory rate 18 /min Jennifer Betzaida Other [employer] Other 12-26-2022 13:45-0400 SaO2% (BldA) [Mass fraction] 100 % Jennifer Huston Other [employer] Other 12-26-2022 13:45-0400 Systolic blood pressure 135 mm[Hg] Jennifer Huston Other [employer] Other Encounters Encounter Date Encounter Type Care Provider Facility Start: 06-29-2025 End: 06-29-2025 Clinisync Result Encounter Rossana BISWAS Work Phone: [facility] Unsolicited Start: 06-29-2025 End: 06-29-2025 Clinisync Result Encounter Rossana BISWAS Work Phone: [facility] Unsolicited Start: 06-26-2025 End: 06-26-2025 Bamboo flowsheet Nimesh Aranda [employer] Work Phone: [facility] Start: 06-26-2025 End: 06-26-2025 Bamboo flowsheet Nimesh Aranda [employer] Work Phone: [facility] Start: 06-26-2025 End: 06-26-2025 flow sheet Nimesh Rosi [employer] Work Phone: [facility] Comment on above: Third trimester preg alysa ([facility]); 36 weeks gestation of ([facility]); Diet controlled gestational diabetes mellitus (GDM), antepartum ([facility]); induced hypertension, antepartum ([facility]) Start: 06-26-2025 End: 06-26-2025 ambulatory NIMESH BLANCHARDLY Not Available Start: 06-24-2025 End: 06-25-2025 ambulatory [facility] Start: 06-22-2025 End: 06-22-2025 Clinisync Result Encounter Rossana BISWAS Work Phone: [facility] Unsolicited Start: 06-22-2025 End: 06-22-2025 Clinisync Result Encounter Rossana BISWAS Work Phone: [facility] External [facility] Unsolicited Start: 06-20-2025 End: 06-20-2025 Orders Only Marii Yoo RN [facility] Comment on above: Poor growth af fecting management of mother in third trimester, single or unspecified fetus (Primary Dx) Start: 06-19-2025 End: 06-19-2025 flow sheet Jose Michael DO Work Phone: [facility] Comment on above: Third trimester preg alysa ([facility]); 35 weeks gestation of ([facility]); Diet controlled gestational diabetes mellitus (GDM), antepartum ([facility]); induced hypertension, antepartum ([facility]) Start: 06-19-2025 End: 06-19-2025 ambulatory JOSE MICHAEL Not Available Start: 06-18-2025 End: 06-18-[facility] Start: 06-15-2025 End: 06-15-2025 Clinisync Result [...] preg alysa ([facility]); 34 weeks gestation of ([facility]) Start: 06-12-2025 End: 06-12-2025 Bamboo flowsheet Rossana BISWAS Work Phone: [facility] Start: 06-12-2025 End: 06-12-2025 Bamboo flowsheet Rossana BISWAS Work Phone: [facility] Start: 06-11-2025 End: 06-11-2025 ambulatory JOSE R MICHAEL [facility] Start: 06-08-2025 End: 06-08-2025 Clinisync Result Encounter Rossana BISWAS Work Phone: [facility] Unsolicited Start: 06-08-2025 End: 06-08-2025 Clinisync Result Encounter Rossana BISWAS Work Phone: [facility] Unsolicited Start: 06-05-2025 End: 06-05-2025 Telephone encounter Xenia London RD Work Phone: [facility] Start: 06-04-2025 End: 06-04-2025 Office consultation new/estab patient 60 min Manas Martin MD Work Phone: [facility] Comment on above: Poor growth af fecting management of mother in third trimester, single or unspecified fetus (Primary Dx) Start: 06-04-2025 End: 06-04-2025 Orders Only Marii Yoo RN [facility] Comment on above: Poor growth af [...] abstracting Scanning Provider External [facility] Start: 05-28-2025 End: 05-28-2025 Bamboo flowsheet Jose Michael DO Work Phone: [facility] Start: 05-28-2025 End: 09-02-2025 Bamboo flowsheet Jose Michael DO Work Phone: [facility] Start: 05-28-2025 End: 05-28-2025 Telephone encounter Chante TEJEDA Work Phone: [facility] Start: 05-28-2025 End: 05-28-2025 ambulatory JOSE MICHAEL Not Available Start: 05-28-2025 End: 05-28-2025 flow sheet Jose Michael DO Work Phone: [facility] Comment on above: Third trimester preg alysa ([facility]); 32 weeks gestation of ([facility]); Gestational diabetes mellitus (GDM), antepartum, gestational diabetes method of control unspecified ([facility]); induced hypertension, antepartum ([facility]) Start: 05-25-2025 End: 05-25-2025 Clinisync Result Encounter Rossana BISWAS Work Phone: [facility] Unsolicited Start: 05-25-2025 End: 05-25-2025 Clinisync Result Encounter Rossana BISWAS Work Phone: [facility] Unsolicited Start: 05-22-2025 End: 05-22-2025 ambulatory JOSE MICHAEL Not Available Start: 05-22-2025 End: 05-22-2025 flow sheet Jose Michael DO Work Phone: [facility] Comment on above: Third trimester preg alysa ([facility]); 31 weeks gestation of ([facility]) Start: 05-22-2025 End: 05-22-2025 Bamboo flowsheet Jose Michael DO Work Phone: [facility] Start: 05-22-2025 End: 05-22-2025 Bamboo flowsheet Jose Michael DO Work Phone: [facility] Start: 05-21-2025 End: 05-21-2025 Telephone encounter Chante Micha LD Work Phone: [facility] Start: 05-20-2025 End: 05-20-2025 Clinisync Result [...] sheet Jose Michael DO Work Phone: [facility] Comment on above: Third trimester preg alysa ([facility]); 30 weeks gestation of ([facility]); induced hypertension, antepartum ([facility]) Start: 05-14-2025 End: 05-14-2025 Bamboo flowsheet Jose Michael DO Work Phone: [facility] Start: 05-14-2025 End: 05-14-2025 Bamboo flowsheet Jose Michael DO Work Phone: [facility] Start: 05-13-2025 End: 05-13-2025 ambulatory Marjorie Rico RN Work Phone: [facility] Comment on above: Gestational diabetes mellitus (GDM) in third trimester, gestational diabetes method of control unspecified Start: 05-11-2025 End: 05-11-2025 Clinisync Result Encounter Rossana BISWAS Work Phone: [facility] Unsolicited Start: 05-11-2025 End: 05-11-2025 Clinisync Result Encounter Rossana BISWAS Work Phone: [facility] External Department Unsolicited Start: 05-10-2025 End: 05-10-2025 Chart abstracting Scanning Provider External [facility] at [facility] Start: 05-06-2025 End: 05-06-2025 Clinisync Result [...] encounter Jose Hendrickso DO Work Phone: [facility] Start: 04-30-2025 End: 04-30-2025 Bamboo flowsheet Rossana BISWAS Work Phone: [facility] Start: 04-30-2025 End: 04-30-2025 Bamboo flowsheet Rossana BISWAS Work Phone: [facility] Start: 04-30-2025 End: 04-30-2025 ambulatory ROSSANA RAMOS Not Available Start: 04-30-2025 End: 04-30-2025 Patient encounter status Rossana BISWAS Work Phone: [facility] Work Phone: Start: 04-30-2025 End: 04-30-2025 flow sheet Rossana BISWAS Work Phone: [facility] Comment on above: BP check; -induced hypertension in third trimester ([facility]); Gestational diabetes mellitus (GDM) in third trimester, gestational diabetes method of control unspecified ([facility]) Start: 04-27-2025 End: 04-27-2025 Clinisync Result Encounter Rossana BISWAS Work Phone: [facility] External Department Unsolicited Start: 04-27-2025 End: 04-27-2025 Clinisync Result Encounter Rossana BISWAS Work Phone: [facility] External Department Unsolicited Start: 04-25-2025 End: 04-25-2025 flow sheet Rossana BISWAS Work Phone: [facility] Comment on above: Second trimester pre gnancy ([facility]); 27 weeks gestation of ([facility]); induced hypertension, antepartum ([facility]) Start: 04-25-2025 End: 04-25-2025 ambulatory ROSSANA SCOTTEY Not Available Start: 04-25-2025 End: 04-25-2025 Bamboo flowsheet Rossana BISWAS Work Phone: [facility] Start: 04-25-2025 End: 04-25-2025 Bamboo flowsheet Rossana BISWAS Work Phone: [facility] Start: 04-11-2025 End: 04-11-2025 ambulatory ROSSANA RACHEL Not Available Start: 04-11-2025 End: 04-11-2025 flow sheet Rossana BISWAS Work Phone: [facility] Comment on above: Second trimester pre gnancy ([facility]); 25 weeks gestation of ([facility]); Diabetes mellitus screening; Elevated BP without diagnosis [...] flow sheet Jose Michael DO Work Phone: [facility] Comment on above: Second trimester pre gnancy ([facility]); 21 weeks gestation of ([facility]) Start: 03-08-2025 End: 03-08-2025 Clinisync Result Encounter Jose Michael DO Work Phone: [facility] External Department Unsolicited Start: 03-08-2025 End: 03-08-2025 Clinisync Result Encounter Jose Michael DO Work Phone: [facility] External Department Unsolicited Start: 02-20-2025 End: 02-20-2025 Patient encounter procedure Rossana BISWAS Work Phone: [facility] Start: 02-20-2025 End: 02-20-2025 flow sheet Rossana BISWAS Work Phone: [facility] Comment on above: Screening, , [...] 02-20-2025 End: 02-22-2025 External Result Encounter Rossana Scottandressa BISWAS Work Phone: [facility] External Department Unsolicited [...] original px Rossana BISWAS Work Phone: [facility] Comment on above: Postoperative examin [...] Start: 08-10-2024 End: 08-10-2024 ambulatory PHYSICIAN NO [facility] Work Phone: Start: 08-10-2024 End: 08-10-2024 Departed Referred PHYSICIAN NO [facility] Start: 08-06-2024 End: 08-06-2024 Bamboo flowsheet [...] OB Comment on above: GA: [id number] Start: 12-26-2022 Office outpatient ne w 20 minutes Jennifer Huston [facility] Start: 12-26-2022 End: 12-26-2022 ambulatory Jennifer Huston Other [employer] Other Start: 12-26-2022 End: 12-26-2022 Patient 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 procedure 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 Jennifer Huston Work Phone: [facility] Work [...] Date Procedure Procedure Detail Performing Clinician Start: 06-29-2025 US OB BPP W NON-STRESS Rossana BISWAS Work Phone: Start: 06-26-2025 Urnls dip stick/tabl et rgnt non-auto w/o micrscp Nimesh Aranda NP Work Phone: Start: 06-22-2025 US OB BPP [...] Start: 03-08-2025 US OB CERVICAL LENGTH C oreangelica MicheleMichael DO Work Phone: Start: 02-20-2025 RECURRENT VAGINITIS [...] Start: 01-05-2025 ALL CBC WITH AUTO DIFF Joes Michael DO Work Phone: Start: 11-21-2024 [facility] PREG QUANT HCG Core y Michael DO Work Phone: Start: 11-19-2024 [facility] PREG QUANT HCG Core y Michael DO Work Phone: Start: 08-18-2024 [facility] PREG QUANT HCG Core y Michael DO Work Phone: Start: 08-10-2024 ALL CBC WITH AUTO DIFF Jose Hendrickso DO Work Phone: Start: 08-10-2024 [facility] PREG QUANT HCG Muna y Michael DO Work Phone: Start: 07-21-2024 ALL CBC WITH AUTO DIFF Jose Hendrickso DO Work Phone: Start: 07-21-2024 [facility] DRUG SCREEN RAPI D (URINE) Jose Hendrickso DO Work Phone: Start: 06-29-2024 End: 06-29-2024 Urnls dip stick/tablet rgnt non-auto w/o micrscp Jose Rodriguez DO Work Phone: Start: 12-26-2022 Plain X-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 hand 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 Jennifer Huston Work Phone: Start: 11-02-2022 Cytp [...] malign ant neoplasm of cervix Pap Smear [facility] [employer] Start: 06-20-2026 End: 06-20-2026 US MFM with or without consult US MFM with or without consult Imaging Routine Poor growth affecting management of mother in third trimester, single or unspecified fetus Expected: 06/20/2026 (Approximate), Expires: 06/20/2026 [employer] Work Phone: Comment on above: Expected: 06/20/2026 (Approximate), Expires: 06/20/2026 Start: 06-04-2026 End: 06-04-2026 US MFM with or without consult US MFM with or without consult Imaging Routine Poor growth affecting management of mother in third trimester, single or unspecified fetus Gestational diabetes mellitus (GDM) in third trimester, gestational diabetes method of control unspecified Expected: 06/04/2026 (Approximate), Expires: 06/04/2026 [employer] Work Phone: Comment on above: Expected: 06/04/2026 (Approximate), Expires: 06/04/2026 Start: 07-04-2025 End: 07-04-2025 Patient encounter procedure 07/04/2025 9:40 AM EDT Routine [facility] [address] [place] [address] Nimesh Aranda, VLAD [address] [place] [address] [facility]ANG Start: 07-02-2025 End: 07-02-2025 Patient encounter procedure 07/02/2025 3:30 PM EDT Appointment [facility] [address] [place] [address] [facility] Start: 06-26-2025 End: 06-26-2026 CULTURE, GROUP B STREP WITH SUSCEPTIBLITY CULTURE, GROUP B STREP WITH SUSCEPTIBLITY Lab Routine Third trimester ([facility]) Expected: 06/26/2025, Expires: 06/26/2026 [facility] Work Phone: Comment on above: Expected: 06/26/2025 , Expires: 06/26/2026 Start: 06-26-2025 End: 06-26-2025 Patient encounter procedure ARJUN PANG Comment on above: Arrived Start: 06-24-2025 End: 06-24-2025 Patient encounter procedure 06/24/2025 2:15 PM EDT Appointment [facility] [address] [place] [address] [address] [place] [address] [facility] Start: 06-19-2025 End: 06-19-2025 Patient encounter procedure 06/19/2025 2:30 PM EDT Routine [facility]OM[facility] [address] [place] [address] Jose Rodriguez, [address] [place] [address] ARJUN [place] [facility] Start: 06-18-2025 End: 06-18-2025 Patient encounter procedure 06/18/2025 3:30 PM EDT Appointment [facility] [address] [place] [address] [facility] Start: 06-12-2025 End: 06-12-2025 Patient encounter procedure 06/12/2025 3:00 PM EDT Routine [facility]JUN PANG [address] [facility] [place] [address] Rossana Ramos PA [address] [place] [address] ARJUN PANG Start: 06-11-2025 End: 06-11-2025 Patient encounter procedure 06/11/2025 8:00 AM EDT Appointment [facility] [address] [place] [phone] [facility] Start: 06-04-2025 End: 06-04-2025 Patient encounter procedure 06/04/2025 1:00 PM EDT Appointment [facility] [address] [facility] [place] [address] Jose Rodriguez R, DO [address] [place] [address] [facility] Start: 06-04-2025 Subsequent hospital visit by physician 06/04/2025 1:00 PM EDT Hospital Encounter [facility] [address] [place] [address] Jose Rodriguez R, DO [address] [place] [address] [facility] Start: 05-28-2025 End: 05-28-2025 Patient encounter procedure 05/28/2025 10:30 AM EDT Routine [facility] [address] [place] [phone] Jose Rodriguez, DO [address] [place] [address] [facility] Start: 05-27-2025 Influenza vaccination N [facility] Start: 05-22-2025 End: 05-22-2025 Patient encounter procedure 05/22/2025 2:40 PM EDT Routine [facility] [address] [place] [phone] Jose Rodriguez, DO [address] [place] [address] [facility] Start: 05-14-2025 End: 05-14-2025 Patient encounter procedure 05/14/2025 2:40 PM EDT Routine [facility] [address] [place] [phone] Jose Rodriguez, DO [address] [place] [address] [facility] Start: 05-14-2025 End: 05-14-2026 Alanine aminotransferase [Enzymatic activity/volume] in Serum or Plasma ALT Lab Routine induced hypertension, antepartum ([facility]) Expected: 05/14/2025 (Approximate), Expires: 05/14/2026 [facility] Comment on above: Expected: 05/14/2025 (Approximate), Expires: 05/14/2026 Start: 05-14-2025 End: 05-14-2026 Aspartate aminotransferase [Enzymatic activity/volume] in Serum or Plasma AST Lab Routine induced hypertension, antepartum ([facility]) Expected: 05/14/2025 (Approximate), Expires: 05/14/2026 [facility] Comment on above: Expected: 05/14/2025 (Approximate), Expires: 05/14/2026 Start: 05-14-2025 End: 05-14-2026 CBC W Auto Differential panel - Blood CBC and differential Lab Routine induced hypertension, antepartum ([facility]) Expected: 05/14/2025 (Approximate), Expires: 05/14/2026 [facility] Comment on above: Expected: 05/14/2025 (Approximate), Expires: 05/14/2026 Start: 05-14-2025 End: 05-14-2026 Creatinine [Mass/volume] in Serum or Plasma Creatinine Lab Routine induced hypertension, antepartum ([facility]) Expected: 05/14/2025 (Approximate), Expires: 05/14/2026 [facility] Work Phone: Comment on above: Expected: 05/14/2025 (Approximate), Expires: 05/14/2026 Start: 05-14-2025 End: 05-14-2026 Lactate dehydrogenase [Enzymatic activity/volume] in Serum or Plasma by Lactate to pyruvate reaction Lactate dehydrogenase Lab Routine induced hypertension, antepartum ([facility]) Expected: 05/14/2025, Expires: 05/14/2026 [facility] Comment on above: Expected: 05/14/2025 , Expires: 05/14/2026 Start: 05-14-2025 End: 05-14-2026 Protein, urine, 24 hour Protein, urine, 24 hour Lab Routine induced hypertension, antepartum ([facility]) Expected: 05/14/2025 (Approximate), Expires: 05/14/2026 [facility] Comment on above: Expected: 05/14/2025 (Approximate), Expires: 05/14/2026 Start: 05-14-2025 End: 05-14-2026 Pt and ptt Pt and ptt Lab Routine induced hypertension, antepartum ([facility]) Expected: 05/14/2025, Expires: 05/14/2026 [facility] Comment on above: Expected: 05/14/2025 , Expires: 05/14/2026 Start: 05-14-2025 End: 05-14-2026 Urate [Mass/volume] in Serum or Plasma Uric acid Lab Routine induced hypertension, antepartum ([facility]) Expected: 05/14/2025 (Approximate), Expires: 05/14/2026 [facility] Comment on above: Expected: 05/14/2025 (Approximate), Expires: 05/14/2026 Start: 05-14-2025 End: 05-14-2026 Urea nitrogen [Mass/volume] in Serum or Plasma BUN Lab Routine induced hypertension, antepartum ([facility]) Expected: 05/14/2025, Expires: 05/14/2026 [facility] Comment on above: Expected: 05/14/2025 , Expires: 05/14/2026 Start: 05-13-2025 End: 05-13-2025 ambulatory 05/13/2025 1:30 PM EDT Support Visit [facility] at [facility] [address] [place] [address] Marjorie Rico RN [address], [address] [place] [address] Xenia London, ALEC [address], [address] [place] [address] [facility] Start: 04-30-2025 End: 10-31-2025 US biophysical [...] control unspecified ([facility]) Expected: 04/30/2025, Expires: 08/30/2025 [facility] Comment on above: Expected: 04/30/2025 , Expires: 08/30/2025 Start: 04-30-2025 End: 04-30-2025 Patient encounter procedure 04/30/2025 10:50 AM EDT Routine ARJUN PANG [address] [place] [address] Rossana Ramos PA [address] [place] [address] ARJUN PANG Start: 04-25-2025 End: 04-25-2025 Patient encounter procedure [facility] Comment on above: Arrived Start: 04-25-2025 [...] antepartum ([facility]) Expected: 04/25/2025 (Approximate), Expires: 04/25/2026 [facility] Comment on above: Expected: 04/25/2025 (Approximate), Expires: 04/25/2026 Start: 04-25-2025 End: 04-25-2026 Creatinine [Mass/volume] in Serum or Plasma Creatinine Lab Routine induced hypertension, antepartum ([facility]) Expected: 04/25/2025 (Approximate), Expires: 04/25/2026 [facility] Work Phone: Comment on above: Expected: 04/25/2025 (Approximate), Expires: 04/25/2026 Start: 04-25-2025 End: 04-25-2026 Lactate dehydrogenase [Enzymatic activity/volume] in Serum or Plasma by Lactate to pyruvate reaction Lactate dehydrogenase Lab Routine induced hypertension, antepartum ([facility]) Expected: 04/25/2025, Expires: 04/25/2026 [facility] Comment on above: Expected: 04/25/2025 , Expires: 04/25/2026 Start: 04-25-2025 End: 04-25-2026 Protein, urine, 24 hour Protein, urine, 24 hour Lab Routine induced hypertension, antepartum ([facility]) Expected: 04/25/2025 (Approximate), Expires: 04/25/2026 [facility] Comment on above: Expected: 04/25/2025 (Approximate), Expires: 04/25/2026 Start: 04-25-2025 End: 04-25-2026 Pt and ptt Pt and ptt Lab Routine induced hypertension, antepartum ([facility]) Expected: 04/25/2025, Expires: 04/25/2026 [facility] Comment on above: Expected: 04/25/2025 , Expires: 04/25/2026 Start: 04-25-2025 End: 04-25-2026 Urate [Mass/volume] in Serum or Plasma Uric acid Lab Routine induced hypertension, antepartum ([facility]) Expected: 04/25/2025 (Approximate), Expires: 04/25/2026 [facility] Comment on above: Expected: 04/25/2025 (Approximate), Expires: 04/25/2026 Start: 04-25-2025 End: 04-25-2026 Urea nitrogen [Mass/volume] in Serum or Plasma BUN Lab Routine induced hypertension, antepartum ([facility]) Expected: 04/25/2025, Expires: 04/25/2026 [facility] Comment on above: Expected: 04/25/2025 , Expires: 04/25/2026 Start: 04-11-2025 End: 04-11-2025 Patient encounter procedure 04/11/2025 3:30 PM EDT Routine [facility] [address] [place] [address] Rossana Ramos PA [address] [place] [address] [facility] Start: 04-11-2025 End: 04-11-2026 CBC panel - Blood by Automated count CBC Lab Routine Diabetes mellitus screening Expected: 04/11/2025 (Approximate), Expires: 04/11/2026 [facility] Work Phone: Comment on above: Expected: 04/11/2025 (Approximate), Expires: 04/11/2026 Start: 04-11-2025 End: 04-11-2026 Measurement of glucose 1 hour after glucose challenge for glucose tolerance test Glucose tolerance, 1 hour Lab Routine Diabetes mellitus screening Expected: 04/11/2025 (Approximate), Expires: 04/11/2026 [facility] Comment on above: Expected: 04/11/2025 (Approximate), Expires: 04/11/2026 Start: 03-14-2025 End: 03-14-2025 Patient encounter procedure 03/14/2025 10:50 AM EDT Routine [facility] [address] [facility] [place] [address] Jose Rodriguez DO [address] [place], [place] [phone] [facility] Start: 02-20-2025 End: 02-20-2025 [...] [facility] [address] [place] [address] [facility] Start: 12-14-2024 End: 12-14-2024 Professional / ancillary services management 12/14/2024 8:30 AM EDT Ancillary Procedure [facility] [address] [place] [address] [facility] Start: 08-20-2024 End: 08-20-2024 Patient encounter procedure 08/20/2024 10:20 AM EST Office Visit [facility] [address] [place] [address] Rossana Ramos PA [address] [place] [address] [facility] Start: 08-06-2024 End: 08-06-2024 Patient encounter procedure 08/06/2024 9:10 AM EST Routine [facility] [address] [place] [address] Jose Rodriguez, DO [address] [place] [address] [facility] Start: 06-29-2024 End: 06-29-2025 ABO/Rh ABO/Rh Lab Routine Missed menses , unspecified gestational age Expected: 06/29/2024 (Approximate), Expires: 06/29/2025 [facility] Comment on above: Expected: 06/29/2024 (Approximate), Expires: 06/29/2025 Start: 06-29-2024 End: 06-29-2025 Blood type and Indirect antibody screen panel - Blood Type and screen Lab Routine Missed menses , unspecified gestational age Expected: 06/29/2024 (Approximate), Expires: 06/29/2025 [facility] Work Phone: Comment on above: Expected: 06/29/2024 (Approximate), Expires: 06/29/2025 Start: 06-29-2024 End: 06-29-2025 Drugs of abuse panel - Urine by Screen method Rapid drug screen, urine Lab Routine , unspecified gestational age Encounter for supervision of normal first in first trimester Expected: 06/29/2024 (Approximate), Expires: 06/29/2025 [facility] Comment on above: Expected: 06/29/2024 (Approximate), Expires: 06/29/2025 Start: 06-29-2024 End: 06-29-2025 US Pelvis transvaginal US OB transvaginal Imaging Routine Missed menses Expected: 06/29/2024 (Approximate), Expires: 06/29/2025 [facility] Comment on above: Expected: 06/29/2024 (Approximate), Expires: 06/29/2025 Start: 05-27-2024 Influenza vaccination Influenza Vacc ine (#1) [facility] Start: 05-01-2024 DTaP,Tdap and Td Vac cines (7 - Td or Tdap) DTaP,Tdap and Td Vaccines (7 - Td or Tdap) [facility] Start: 2020 DTaP,Tdap and Td Vac cines (1 - Tdap) DTaP,Tdap and Td Vaccines (1 - Tdap) [facility] Start: 2019 Adult BMI Screening Adult BMI Screen ing [facility] Start: 2013 Depression Screening Depression Scre ening [facility] Start: 2013 Tobacco Screening Tobacco Screening [facility] Start: 2001 Screening for Chlamy jd trachomatis Chlamydia Screening [facility] Bacteria identified in Urine by Culture Urine culture Microbiology Routine Missed menses Ordered: 06/29/2024 [facility] Comment on above: Ordered: 06/29/2024 Bacteria identified in Urine by Culture Urine culture Microbiology Routine Urinary frequency Ordered: 02/20/2025 [facility] Comment on above: Ordered: 02/20/2025 CBC W Auto Different ial panel - Blood CBC and differential Lab Routine Missed menses , unspecified gestational age Ordered: 06/29/2024 [facility] Comment on above: Ordered: 06/29/2024 CHLAMYDIA TRACHOMATI S (GENITO/STI) CHLAMYDIA TRACHOMATIS (GENITO/STI) Lab Routine STD exposure Ordered: 02/20/2025 [facility] Comment on above: Ordered: 02/20/2025 Cytology Cervical or vaginal smear or scraping study Pap Smear Pathology and Cytology Routine Well woman exam with routine gynecological exam Ordered: 02/20/2025 [facility] Comment on above: Ordered: 02/20/2025 Hemoglobin A1c/Hemoglobin.total in Blood Hemoglobin A1c Lab Routine Missed menses , unspecified gestational age Ordered: 06/29/2024 [facility] Comment on above: Ordered: 06/29/2024 Hepatitis B virus beltran rface Ag [Presence] in Serum or Plasma by Immunoassay Hepatitis B surface antigen Lab Routine Missed menses , unspecified gestational age Ordered: 06/29/2024 [facility] Comment on above: Ordered: 06/29/2024 Hepatitis C virus Ab [Presence] in Serum or Plasma by Immunoassay Hepatitis C antibody Lab Routine Missed menses , unspecified gestational age Ordered: 06/29/2024 [facility] Comment on above: Ordered: 06/29/2024 HIV-1/HIV-2 antigen/antibody combination immunoassay HIV-1 and HIV-2 antibodies Lab Routine Missed menses , unspecified gestational age Ordered: 06/29/2024 [facility] Comment on above: Ordered: 06/29/2024 Neisseria gonorrhoea e DNA [Presence] in Unspecified specimen by INESSA with probe detection Neisseria gonorrhea DNA probe, direct Lab Routine STD exposure Ordered: 02/20/2025 [facility] Comment on above: Ordered: 02/20/2025 Reagin Ab [Presence] in Serum by RPR RPR Lab Routine Missed menses , unspecified gestational age Ordered: 06/29/2024 [facility] Comment on above: Ordered: 06/29/2024 Rubella antibody, IgG Rubella an tibody, IgG Lab Routine Missed menses , unspecified gestational age Ordered: 06/29/2024 [facility] Comment on above: Ordered: 06/29/2024 SURESWAB(R) ADVANCED VAGINITIS PLUS, TMA SURESWAB(R) ADVANCED VAGINITIS PLUS, TMA Pathology and Cytology Routine STD exposure Ordered: 02/20/2025 [facility] Work Phone: Comment on above: Ordered: 02/20/2025 Immunizations Immunization Date Immunization Notes Care Provider Ryne abrams 08-28-2002 influenza virus vacc ine, unspecified formulation [facility] Nurse [facility] Healthcare Payers Date Payer Category Payer Medicaid HMO [id number] 2024 [facility] - O [id number] 2023 Medicaid [employer] [place] [id number] 2023-Present [address] [place] [id number] 2023 Medicaid (Managed Care) [facility] MEDICAID [id number] 2021 [employer] Blue [employer] [id number] 2021 Unknown BCBS BCBS [id number] [id number] 2021-Present [phone] [address] [place] [address] [id number] 2001 Unknown [id number] 2.16.840.1.270195.3.579.2. 593 2001 Unknown [id number] 2.16.840.1.829664.3.579.2. 593 2001 Unknown [id number] 2.16.840.1.111950.3.579.2. 593 2001 Unknown [id number] 2.16.840.1.458801.3.579.2. 593 2001 Unknown [id number] 2.16.840.1.485066.3.579.2. 593 2001 Unknown [id number] 2.16.840.1.466394.3.579.2. 593 2001 Unknown [id number] 2.16.840.1.400624.3.579.2. 593 2001 Unknown [id number] 2.16.840.1.348238.3.579.2. 593 2001 Unknown [id number] 2.16.840.1.821273.3.579.2. 593 2001 Unknown [id number] 2.16.840.1.810935.3.579.2. 593 2001 Unknown [id number] 2.16.840.1.223989.3.579.2. 593 2001 Unknown [id number] 2.16.840.1.541005.3.579.2. 593 2001 Unknown [id number] 2.16.840.1.130357.3.579.2. 593 2001 Unknown [id number] 2.16.840.1.992266.3.579.2. 593 2001 Unknown [id number] 2.16.840.1.832503.3.579.2. 593 2001 Unknown [id number] 2.16.840.1.520899.3.579.2. 593 2001 Unknown [id number] 2.16840.1.695163.3.579.2. 593 2001 Unknown [id number] 2.16.840.1.373279.3.579.2. 593 2001 Unknown [id number] 2.16.840.1.100936.3.579.2. 593 2001 Unknown [id number] 2.16.840.1.895880.3.579.2. 593 2001 Unknown [id number] 2.16840.1.336647.3.579.2. 593 2001 Unknown [id number] 2.16.840.1.522556.3.579.2. 1286 2001 Unknown [id number] 2.16.840.1.348563.3.579.2. 128 2001 Unknown [id number] 2.16.840.1.524487.3.579.2. 1286 2001 Unknown [id number] 2.16.840.1.727600.3.579.2. 128 2001 Unknown [id number] 2.16.840.1.807808.3.579.2. 1286 2001 Unknown [id number] 2.840.1.233221.3.579.2. 1285 2001 Unknown [id number] 2.16840.1.022159.3.579.2. 1258 2001 Unknown [id number] 2.840.1.504676.3.579.2. 1258 2001 Unknown [id number] 2.840.1.329846.3.579.2. 1258 2001 Unknown [id number] 2.840.1.531038.3.579.2. 1258 2001 Unknown [id number] 2.840.1.837392.3.579.2. 1258 2001 Unknown [id number] 2..1.147190.3.579.2. 1258 2001 Unknown [id number] 2.840.1.851882.3.579.2. 1258 2001 Unknown [id number] 2.0.1.245673.3.579.2. 1258 2001 Unknown [id number] [id number] 2001 Unknown [id number] 1258 2001 Unknown [id number]. 1258 2001 Unknown [id number] [id number]. 1258 2001 Unknown [id number] 2.840.1.707916.3.579.2. 1258 2001 Unknown [id number] 2.840.1.535253.3.579.2. 1258 2001 Unknown [id number] 2.840.1.318344.3.579.2. 1259 2001 Unknown [id number] [id number]. 1259 1959 Self-pay 1959 Unknown [id number] 1959 Unknown [id number] Unknown [id number]. 593 Unknown [id number] 531 Social History Date Type Detail Facility Start: 10-13-2023 End: 06-29-2024 Sex Assigned At [facility] [employer] Other Start: 2000 Sex Assigned At Female [facility] Start: 10-13-2023 End: 05-10-2025 Tobacco smoking status MOIS Never smoked tobacco [facility] Start: 06-29-2024 End: 06-26-2025 Alcoholic beverage intake Current drinker of alcohol (finding) [facility] Start: 10-13-2023 End: 06-29-2024 History of Social function [facility] Start: 05-24-2024 [facility] Start: 2001 Sex assigned at Not on file [facility] Tobacco smoking stat us MOIS Unknown if ever smoked [facility] Work Phone: Start: 04-29-2015 End: 08-11-2024 Sex Female (finding) [facility] Start: 05-10-2025 End: 05-31-2025 Alcoholic beverage intake Ex-drinker (finding) [facility] Medical Equipment Procedure Code Equipment Code Equipment Origin al Text Equipment Identifier Dates 1 strip by In Vi tro route Daily Use in the morning prior to breakfast, 1 hour after each meal for a total of 4times daily. [id number] Start: 05-08-2025 End: 06-07-2025 1 each by In Vit ro route Daily Use to check FSBS four times daily [id number] Start: 05-08-2025 End: 06-07-2025 Clinical Notes 04-02-2023 to 06-26-2025 Nimesh Aranda NP - 06/26/2025 9:10 AM Sriram [...] to check FSBS. Blood Glucose Monitoring Suppl (D-RABT Glucometer) w/Device kit 1 kit, Does not [...] nursing note reviewed. Exam conducted with a lab pack chemist present. Vitals: Estimated body mass index is 32.06 kg/m as calculated from the following: Height as of 01/06/23: 5' 3 . Weight as of this encounter: 181 lb. BP: 138/84 Patient's last menstrual period was 10/15/2024 (exact date). ASSESSMENT & PLAN ICD-10-CM 1. Third trimester ([facility]) Z34.93 POCT urinalysis dipstick manually resulted CULTURE, GROUP B STREP WITH SUSCEPTIBLITY CULTURE, GROUP B STREP WITH SUSCEPTIBLITY 2. 36 weeks gestation of ([facility]) Z3A.36 3. Diet controlled gestational diabetes mellitus (GDM), antepartum ([facility]) O24.410 4. induced hypertension, antepartum ([facility]) O13.9 Patient is doing well but has [...] by Jael Nix MA on behalf of: Nimesh Aranda NP documented in this encounter [facility] 06-19-2025 History of Presen t [...] Problems Diagnosis Date Noted induced hypertension, antepartum ([facility]) 05/28/2025 Gestational diabetes mellitus (GDM), antepartum ([facility]) 05/28/2025 Resolved Ambulatory Problems Diagnosis Date Noted No Resolved Ambulatory Problems Past Medical History: Diagnosis Date Anemia Gestational diabetes ([facility]) History of blood transfusion Lead poisoning Miscarriage ([facility]) Nonsmoker Post depression HISTORY PAST MEDICAL HISTORY SOCIAL HISTORY Past Medical History: Diagnosis Date Anemia Gestational diabetes ([facility]) History of blood transfusion Lead poisoning Miscarriage ([facility]) Nonsmoker Post depression /anxiety Social History Tobacco [...] nursing note reviewed. Exam conducted with a lab pack chemist present. Vitals: Estimated body mass index is 31.89 kg/m as calculated from the following: Height as of 01/06/23: 5' 3 . Weight as of this encounter: 180 lb. BP: 142/86 Patient's last menstrual period was 10/15/2024 (exact date). ASSESSMENT & PLAN ICD-10-CM 1. Third trimester ([facility]) Z34.93 POCT urinalysis dipstick manually resulted 2. 35 weeks gestation of ([facility]) Z3A.35 3. Diet controlled gestational diabetes mellitus (GDM), antepartum ([facility]) O24.410 4. induced hypertension, antepartum ([facility]) O13.9 Return OB: Patient presents today [...] Jose Rodriguez DO documented in this encounter [facility] 06-12-2025 History of Presen t [...] Problems Diagnosis Date Noted induced hypertension, antepartum ([facility]) 05/28/2025 Gestational diabetes mellitus (GDM), antepartum ([facility]) 05/28/2025 Resolved Ambulatory Problems Diagnosis Date Noted No Resolved Ambulatory Problems Past Medical History: Diagnosis Date Anemia Gestational diabetes ([facility]) History of blood transfusion Lead poisoning [facility]isc[facility]) Nonsmoker Post depression HISTORY PAST MEDICAL HISTORY SOCIAL HISTORY Past Medical History: Diagnosis Date Anemia Gestational diabetes ([facility]) History of blood transfusion Lead poisoning Miscarriage ([facility]) Nonsmoker Post depression /anxiety Social History Tobacco [...] & PLAN ICD-10-CM 1. Third trimester ([facility]) Z34.93 POCT urinalysis dipstick manually resulted 2. 34 weeks gestation of ([facility]) Z3A.34 POCT urinalysis dipstick manually resulted [...] of: TRUE Argueta documented in this encounter [facility] 06-05-2025 Miscellaneous Notes Received blood [...] again next week. documented in this encounter [facility] 06-05-2025 Telephone encounter Note Received blood sugars [...] send in more numbers again next week. 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 Patient does have multiple ultrasound scheduled with us Thank you for allowing me to participate in Vimal Funes . If there any questions please do not hesitate to contact us. Sincerely, MANAS MARTIN MD Video Visit via Real-time Synchronous Audiovisual Provider Location: [facility]- [facility]ICINE AT [address] [facility] [id number] Patient Location: Other [facility] office Patient Location Mainframe Developer: None Video Visit Consent Statement: I discussed [...] that there are some limitations compared to byqo-vj-[id number] evaluations. We elected to proceed. [facility] Miscellaneous Notes Called regarding blood sugar logs from 05/20/25-05/26/25 but received voicemail. Vimal had 4 elevated fasting blood sugars and 2 elevated blood sugars after breakfast. Most recent fasting blood sugars have improved and she had three in target. We did talk last week about changing her evening snack. Will send a MyChart message. [facility] 05-28-2025 Telephone encounter Note Called regarding blood sugar logs from 05/20/25-05/26/25 but received voicemail. Vimal had 4 elevated fasting blood sugars and 2 elevated blood sugars after breakfast. Most recent fasting blood sugars have improved and she had three in target. We did talk last week about changing her evening snack. Will send a MyChart message. [facility] Work Phone: 05-28-2025 History of Presen t illness Narrative Reason for Appointment: Patient ID: Vimal Funes is a 25 y.o. female who presents for Routine Visit Patient presents today for Return OB appointment. MEDICATIONS Current Outpatient Medications Medication Instructions Alcohol Swabs (Alcohol Prep Pad) 70 % pads 1 Pad, Topical, Daily, Use four times daily to check FSBS. Blood Glucose Monitoring Suppl (D-RABT Glucometer) w/Device kit 1 kit, Does not [...] Problems Diagnosis Date Noted induced hypertension, antepartum ([facility]) 05/28/2025 Gestational diabetes mellitus (GDM), antepartum ([facility]) 05/28/2025 Resolved Ambulatory Problems Diagnosis Date Noted No Resolved Ambulatory Problems Past Medical History: Diagnosis Date Anemia Gestational diabetes ([facility]) History of blood transfusion Lead poisoning Miscarriage ([facility]) Nonsmoker Post depression HISTORY PAST MEDICAL HISTORY SOCIAL HISTORY Past Medical History: Diagnosis Date Anemia Gestational diabetes ([facility]) History of blood transfusion Lead poisoning Miscarriage ([facility]) Nonsmoker Post depression /anxiety Social History Tobacco [...] nursing note reviewed. Exam conducted with a lab pack chemist present. Vitals: Estimated body mass index is 32.06 kg/m as calculated from the following: Height as of 01/06/23: 5' 3 . Weight as of this encounter: 181 lb. BP: 136/80 Patient's last menstrual period was 10/15/2024 (exact date). ASSESSMENT & PLAN ICD-10-CM 1. Third trimester ([facility]) Z34.93 POCT urinalysis dipstick manually resulted 2. 32 weeks gestation of ([facility]) Z3A.32 3. Gestational diabetes mellitus (GDM), antepartum, gestational diabetes method of control unspecified ([facility]) O24.419 4. induced hypertension, antepartum ([facility]) O13.9 Return OB: Patient presents today [...] Jose Rodriguez DO documented in this encounter [facility] 05-22-2025 History of Presen t illness Narrative Reason for Appointment: Patient ID: Vimal Funes is a 25 y.o. female who presents for Routine Visit Patient presents today for Return OB appointment. MEDICATIONS Current Outpatient Medications Medication Instructions Alcohol Swabs (Alcohol Prep Pad) 70 % pads 1 Pad, Topical, Daily, Use four times daily to check FSBS. Blood Glucose Monitoring Suppl (D-RABT Glucometer) w/Device kit 1 kit, Does not [...] nursing note reviewed. Exam conducted with a lab pack chemist present. Vitals: Estimated body mass index is 31.49 kg/m as calculated from the following: Height as of 01/06/23: 5' 3 . Weight as of this encounter: 177 lb 12 oz. BP: (!) 138/92 Patient's last menstrual period was 10/15/2024 (exact date). ASSESSMENT & PLAN ICD-10-CM 1. Third trimester ([facility]) Z34.93 POCT urinalysis dipstick manually resulted 2. 31 weeks gestation of ([facility]) Z3A.31 Return OB: Patient presents today [...] Jose Rodriguez DO documented in this encounter [facility] 05-21-2025 Miscellaneous Notes Called regarding [...] sugars next week. documented in this encounter [facility] 05-21-2025 Telephone encounter Note Called regarding blood [...] will send in blood sugars next week. [facility] Work Phone: 05-14-2025 History of Presen t illness Narrative Reason for Appointment: Patient ID: Vimal Funes is a 25 y.o. female who presents for Routine Visit Patient presents today for Return OB appointment. MEDICATIONS Current Outpatient Medications Medication Instructions Alcohol Swabs (Alcohol Prep Pad) 70 % pads 1 Pad, Topical, Daily, Use four times daily to check FSBS. Blood Glucose Monitoring Suppl (D-RABT Glucometer) w/Device kit 1 kit, Does not [...] Lead poisoning Miscarriage ([facility]) Nonsmoker Post depression HISTORY PAST MEDICAL [...] nursing note reviewed. Exam conducted with a lab pack chemist present. Vitals: Estimated body mass index is 31.35 kg/m as calculated from the following: Height as of 01/06/23: 5' 3 . Weight as of this encounter: 177 lb. BP: 140/90 Patient's last menstrual period was 10/15/2024 (exact date). ASSESSMENT & PLAN ICD-10-CM 1. Third trimester ([facility]) Z34.93 POCT urinalysis dipstick manually resulted 2. 30 weeks gestation of ([facility]) Z3A.30 POCT urinalysis dipstick manually resulted 3. induced hypertension, antepartum ([facility]) O13.9 Creatinine Protein, urine, 24 hour [...] Jose Rodriguez DO documented in this encounter [facility] 05-13-2025 Group counseling note Patient: [...] Face to face time was 110 minutes. [employer] Work Phone: 05-13-2025 Miscellaneous Notes Patient: Vimal [...] was 110 minutes. documented in this encounter [facility] 05-07-2025 Telephone encounter Note Called pt to let her know that she did not pass her 3 hour glucose test and that I would be sending in supplies and referring her to diabetic education. [facility] 05-07-2025 Miscellaneous Notes Called pt to let her know that she did not pass her 3 hour glucose test and that I would be sending in supplies and referring her to diabetic education. documented in this encounter [facility] 04-30-2025 History of Presen t [...] 2. -induced hypertension in third trimester ([facility]) O13.3 US biophysical profile w non stress test US OB follow up transabdominal approach labetalol (Normodyne) 300 MG tablet 3. Gestational diabetes mellitus (GDM) in third trimester, gestational diabetes method of control unspecified ([facility]) O24.419 US biophysical profile w non [...] of: TRUE Argueta documented in this encounter [facility] 04-25-2025 History of Presen t [...] ASSESSMENT & PLAN ICD-10-CM 1. Second trimester ([facility]) Z34.92 2. 27 weeks gestation of ([facility]) Z3A.27 Patient presents for BP check. BP elevated today despite taking 100mg bid labetolol daily. We will increase to 200mg bid daily. Patient given labs and instructed to follow up with OB should she develop headache or vision changes Pt will follow up with DR Rodriguez next week Documented by TRUE Argueta on behalf of: TRUE Argueta documented in this encounter [facility] 04-11-2025 History of Presen t [...] Lead poisoning Miscarriage ([facility]) Nonsmoker Post depression HISTORY PAST MEDICAL HISTORY SOCIAL HISTORY Past Medical History: Diagnosis Date Anemia Gestational diabetes ([facility]) History of blood transfusion Lead poisoning Miscarriage ([facility]) Nonsmoker Post depression /anxiety Social History Tobacco [...] & PLAN ICD-10-CM 1. Second trimester ([facility]) Z34.92 POCT urinalysis dipstick manually resulted 2. 25 weeks gestation of ([facility]) Z3A.25 3. Diabetes mellitus screening Z13.1 [...] of: TRUE Argueta documented in this encounter [facility] 03-14-2025 History of Presen t [...] nursing note reviewed. Exam conducted with a lab pack chemist present. Vitals: Estimated body mass index is 29.23 kg/m as calculated from the following: Height as of 01/06/23: 5' 3 . Weight as of this encounter: 165 lb. BP: 112/76 Patient's last menstrual period was 10/15/2024 (exact date). ASSESSMENT & PLAN ICD-10-CM 1. Second trimester ([facility]) Z34.92 POCT urinalysis dipstick manually resulted 2. 21 weeks gestation of ([facility]) Z3A.21 Patient presents today for a routine obstetrics appointment. Patient is currently 21w3d with a Estimated Date of Delivery: 07/22/25. Patient has no complaints at this time and will return to clinic in 4 weeks. Documented by Diamond Borja LPN on behalf of: Jose Rodriguez DO documented in this encounter [facility] 02-20-2025 History of Presen t [...] transfusion Lead poisoning Miscarriage Nonsmoker Post depression ([facility]) HISTORY PAST MEDICAL HISTORY SOCIAL HISTORY Past Medical History: Diagnosis Date Anemia Gestational diabetes History of blood transfusion Lead poisoning Miscarriage Nonsmoker Post depression ([facility]) /anxiety Social History Tobacco Use Smoking [...] nursing note reviewed. Exam conducted with a lab pack chemist present. Vitals: Estimated body mass index is [...] of: TRUE Argueta documented in this encounter [facility] 01-14-2025 History of Presen t [...] nursing note reviewed. Exam conducted with a lab pack chemist present. Vitals: Estimated body mass index is [...] Jose Rodriguez DO documented in this encounter [facility] 08-20-2024 History of Presen t [...] a D&C Hysteroscopy performed at [facility] with Dr. Rodriguez. Pathology results was reviewed with the patient in great detail and all restrictions have been lifted. Follow Up: Patient is to return to the office for annual exam unless needed otherwise. Documented by TRUE Argueta on behalf of: TRUE Argueta documented in this encounter [facility] 08-06-2024 History of Presen t [...] nursing note reviewed. Exam conducted with a lab pack chemist present. Vitals: Estimated body mass index is [...] vaginal bleeding. Patient to discuss date with Campus Aide prior to leaving. Patient is able to obtain work note for the week and if longer is needed she will reach out to office. Documented by Diamond Borja LPN on behalf of: Jose Rodriguez DO documented in this encounter [facility] 06-29-2024 History of Presen t [...] blood transfusion Lead poisoning Nonsmoker Post depression ([facility]) Family History Problem Relation Name Age of [...] by: Whitney Peacock documented in this encounter [facility] [employer] 12-26-2022 Evaluation note Encounter Date Diagnosis Assessment [...] appointment to be seen soon as possible [employer] Other [employer] noteNo assessment information available [facility] Work Phone: [email or web address] note* Diagnosis Missed menses , unspecified gestational age Encounter for supervision of normal first in first trimester Nausea Nausea alone 7 weeks gestation of documented in this encounter [facility] [employer] note* Diagnosis Miscarriage Unspecified spontaneous without mention of complication documented in this encounter [facility] [employer]Evaluation note* Diagnosis Postoperative examination Follow-up examination, following unspecified surgery documented in this encounter [facility] [employer] note* Diagnosis 13 weeks gestation of Second trimester state, incidental documented in this encounter [facility] [employer] note* Diagnosis Screening, , for anatomic survey Encounter for anatomic survey Well woman exam with routine gynecological exam Routine gynecological examination STD exposure Second trimester state, incidental 18 weeks gestation of Urinary frequency documented in this encounter [facility] [employer] note* Diagnosis Second trimester ([facility]) state, incidental 21 weeks gestation of ([facility]) documented in this encounter [facility] [employer]Evaluation note* Diagnosis Second trimester ([facility]) state, incidental [...] unspecified fetus- Primary [facility] Diagnosis Third trimester ([facility]) state, incidental 36 weeks gestation of ([facility]) Diet controlled gestational diabetes mellitus (GDM), antepartum ([facility]) induced hypertension, antepartum ([facility]) Transient hypertension of , antepartum documented in this encounter [facility]ructionsNot on filedocumented in this encounterProMedica Health SystemInstructionsNot on filedocumented in this encounterProEastpointe [facility] Health SystemInstructionsNot on filedocumented in this encounterProSt. [facility] SystemInstructionsNot on filedocumented in this encounterMarion [facility] Summary Purpose Family History No [...] section and content) DATE CREATED AUTHOR 09/24/2021 [facility] DATE CREATED AUTHOR AUTHOR'S ORGANIZ ATION 12/07/2022 [facility] DATE CREATED AUTHOR AUTHOR'S ORGANIZ ATION 08/15/2024 [facility] DATE CREATED AUTHOR AUTHOR'S ORGANIZ ATION 06/06/2025 [facility] DATE CREATED AUTHOR AUTHOR'S ORGANIZ ATION 06/20/2025 [facility] DATE CREATED AUTHOR AUTHOR'S ORGANIZ ATION 06/30/2025 [facility] Amb[facility] DATE CREATED AUTHOR AUTHOR'S ORGANIZ ATION 07/01/2025 [facility] EPIC REASON FOR VISIT [...] method of control unspecified Jose Rodriguez DO [address] [place] [address] [place] [address]ué [place] [address] Phone: tel: fax: M[facility]- Medicine at [facility] [address] [place] [address] Phone: tel: fax: Referral ID Status Reason Start Date Expiration Date Visits Requested Visits Authorized [id number] Pending Review Specialty Services Required 05/09/2025 05/09/2026 1 1 Care Teams (unrecognized sec tion and content) Team Status: Inactive Member Role Status Dates Jennifer Huston NP-C Attending Provider Active Colored Leather Setter Relationship Specialty Start Date End Date Vaishali Zapata MD [address] [place] [address] PCP - General Family Medicine 02/04/23 [employer]ored Leather Setter Relationship Specialty Start Date End Date Vaishali Zapata MD [address] [place] [address] PCP - General Family Medicine 02/04/23 Team Status: Active Member Role Status Dates PHYSICIAN NO FAMILY Primary Care Provider Active Team Status: Inactive Member Role Status Dates PHYSICIAN NO FAMILY Primary Care Provider Active Start: August 10, 2024 End: August 10, 2024 Jose Rodriguez DO Attending Provider Active Start : August 10, 2024 End: August 10, 2024 Colored Leather Setter Relationship Specialty Start Date End Date Unallocated, [place] [address] PCP - General Family Medicine 08/03/24 Colored Leather Setter Relationship Specialty Start Date End Date Unallocated, [place] [address] PCP - General Family Medicine 08/03/24 Colored Leather Setter Relationship Specialty Start Date End Date Unallocated, MD Zuhair Aguero [facility] [place] [address] PCP - General Family Medicine 08/03/24 Colored Leather Setter Relationship Specialty Start Date End Date Unallocated, Arjun Vo [place] [facility] [place] [address] PCP - General Family Medicine 08/03/24 Colored Leather Setter Relationship Specialty Start Date End Date Unallocated, Arjnu Vo [place] [facility] [place] [address] PCP - General Family Medicine 08/03/24 Colored Leather Setter Relationship Specialty Start Date End Date Unallocated, Arjun Vo MD [facility] [address] [facility] [place] [address] PCP - General Family Medicine 08/03/24 Colored Leather Setter Relationship Specialty Start Date End Date Unallocated, Arjun Vo MD [facility] [address] [facility] [place] [address] PCP - General Family Medicine 08/03/24 Colored Leather Setter Relationship Specialty Start Date End Date Unallocated, Arjun Vo MD [facility] [address] [facility] [place] [address] PCP - General Family Medicine 08/03/24 Colored Leather Setter Relationship Specialty Start Date End Date Unallocated, Arjun Vo [place] [facility] [place] [address] PCP - General Family Medicine 08/03/24 Colored Leather Setter Relationship Specialty Start Date End Date Unallocated, Arjun Vo MD [facility] [address] [facility] [place] [address] PCP - General Family Medicine 08/03/24 Colored Leather Setter Relationship Specialty Start Date End Date Unallocated, [place] [address] PCP - General Family Medicine 08/03/24 Colored Leather Setter Relationship Specialty Start Date End Date Unallocated, Arjun Vo MD [facility] [place] [address] PCP - [facility] 08/03/24 Colored Leather Setter Relationship Specialty Start Date End Date Unallocated, Arjun Vo [place] [facility] [place] [address] PCP [facility] 08/03/24 Colored Leather Setter Relationship Specialty Start Date End Date Unallocated, Arjun Vo MD [facility] [place] [address] PCP [facility] 08/03/24 Colored Leather Setter Relationship Specialty Start Date End Date Unallocated, Arjun Vo [place] [facility] [place] [address] PCP [facility] 08/03/24 Colored Leather Setter Relationship Specialty Start Date End Date Unallocated, Arjun Vo MD [facility] [place] [address] PCP [facility] 08/03/24 Colored Leather Setter Relationship Specialty Start Date End Date Unallocated, Arjun Vo MD [facility] [place] [place] [address] PCP [facility] 08/03/24 Colored Leather Setter Relationship Specialty Start Date End Date Unallocated, Arjun Vo MD [facility] [place] [address] [facility] 08/03/24 Goals (unrecognized section and content) [...] BE BASED ON THE PRIMARY CLINICAL RECORDS. [facility] [employer] [facility] provides no warranty or guarantee of the accuracy or completeness of information in this document.
[2025-07-03 17:20] VITALS: BP 139/89; PULSE 80
== END 2025-07-03 17:22 | disposition home or self-care (01) ==
LOC: FBCO 16:50 → FBC 16:51
PROVIDERS: PCP Nurse Practitioner Family; Visit Provider Obstetrics & Gynecology
DX: O24.419 Gestational diabetes mellitus in pregnancy, unspecified control (principal); Z3A.37 37 weeks gestation of pregnancy
CPT/HCPCS: 59025

== ENCOUNTER 2025-07-04 11:00 | Inpatient (IN) | payer BC, OTHER, SELFPAY ==
[2025-07-04] VITALS (55 sets, daily range): BP systolic 111–166; BP diastolic 51–104; PULSE 59–90; TEMP 36.5–37.2; O2SAT 95–96
--- OUTSIDE RECORDS SUMMARY | 2025-07-04 11:09 | XMS_ITS | CCD ---
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 [employer] Name Role Phone MICHAEL ., DR [...] Unavailable MISC, DR DOMINIQUE Primary Care Unavailable LYERLY, DR COCO Danielle Consulting Unavailable MICHAEL ., DR MANN Consulting Unavailable MICHAEL ., DR MANN Admitting Unavailable MICHAEL ., DR MANN Attending Unavailable MISC, DR DOMINIQUE Primary Care Unavailable MICHAEL ., DR MANN Consulting Unavailable MICHAEL ., DR MANN Admitting Unavailable MICHAEL ., DR MANN Attending Unavailable MISC, DR DOMINIQUE Primary Care Unavailable LYERLY, DR COCO Danielle Consulting Unavailable MICHAEL ., [...] JOSE Attending Unavailable ROSSANA RAMOS Attending Unavailable MICHALE, JOSE Attending Unavailable NIMESH ARANDA Attending Unavailable [...] Facility OB BPP W NON-STRESS on 06-29-2025 [place] [address] Ultrasound Report Signed Patient: VIMAL FUNES MR#: [id number] : 2000 Acct:[id number] Age/Sex: 25 / F ADM Date: 06/29/25 Loc: US Attending Dr: Rossana Ramos Ordering Physician: Rossana Ramos Date of Service: 06/29/25 Procedure(s): US OB BPP w non-stress Accession Number(s): [id number] cc: Rossana Ramos; JENNIFER SEE [place] [id number] Patient Name: VIMAL FUNES MRN: [facility]:[id number] date: 2000 Sex: F Assigned Patient Location: US Current Patient Location: Accession/Order Number: [id number] Exam Date: 06/29/2025 11:10 Report Date: 06/29/2025 12:49 At the request of: ROSSANA RAMOS Procedure: US OB BPP w non-stress Biophysical profile. Reason for exam: Gestational diabetes COMPARISON: 06/22/2025 TECHNIQUE: Transabdominal imaging of the gravid uterus was obtained. FINDINGS: The computer numerical control operator reports a BPP of 8 out of 8. DANYA is normal at 11.0 cm. heart rate 148 bpm US/US OB BPP w non-stress IMPRESSION: BPP 8 out of 8. Impression dictated by: Bulmaro Arias Jr., D.O. 06/29/2025 12:49 PM Dictation Location: [place] [address] Electronically authenticated by: [id number] Y Date: 06/29/2025 12:49 Dictated By: Bulmaro Arias M.D. Signed By: 06/29/25 1252 DD/ 1249 TD/TT: Structural Steel Equipment Erector: [facility] Radiology, Radiologist, MD - 06/29/2025 [place] [address] Ultrasound Report Signed Patient: VIMAL FUNES MR#: [id number] : 2000 Acct:[id number] Age/Sex: 25 / F ADM Date: 06/29/25 Loc: US Attending Dr: Rossana Ramos Ordering Physician: Rossana Ramos Date of Service: 06/29/25 Procedure(s): US OB BPP w non-stress Accession Number(s): [id number] cc: Rossana Ramos; JENNIFER SEE [place] [id number] Patient Name: VIMAL FUNES MRN: [facility]:[id number] date: 2000 Sex: F Assigned Patient Location: US Current Patient Location: Accession/Order Number: [id number] Exam Date: 06/29/2025 11:10 Report Date: 06/29/2025 12:49 At the request of: ROSSANA RAMOS Procedure: US OB BPP w non-stress Biophysical profile. Reason for exam: Gestational diabetes COMPARISON: 06/22/2025 TECHNIQUE: Transabdominal imaging of the gravid uterus was obtained. FINDINGS: The computer numerical control operator reports a BPP of 8 out of 8. DANYA is normal at 11.0 cm. heart rate 148 bpm US/US OB BPP w non-stress IMPRESSION: BPP 8 out of 8. Impression dictated by: Bulmaro Arias Jr., D.O. 06/29/2025 12:49 PM Dictation Location: [employer] Electronically authenticated by: [id number] Y Date: 06/29/2025 12:49 Dictated By: Bulmaro Arias M.D. Signed By: 06/29/25 1252 DD/ 1249 TD/TT: Structural Steel Equipment Erector: [facility] Radiology Study observation (narrative) [facility] US OB BPP W NON-STRESS Ordered By: Radiologist Radiology on 06-29-2025 [facility]: Urinalysis macro (dipstick) panel (U)on 06-26-2025 Bilirubin, UA Negative Negative - 4(70) +++ mg/dL [facility] Blood, UA Negative Negative - 50 Jason/mcL [facility] Clarity, UA Clear [facility] re Color, UA Yellow [facility] Glucose, UA Negative Negative - 1999(110) ++++ mg/dL [facility] Interpretation and review of laboratory results Normal [facility] Ketones, UA Negative Negative - 160(16) ++++ mg/dL [facility] Leukocytes, UA Negative Negative - 500+++ Carlos/mcL [facility] Nitrite, UA Negative Negative - Positive [facility] pH, UA 6 5 - 9 [facility] Protein, UA 1+ Negative - 2000(20) ++++ mg/dL [facility] Spec Grav, UA 1.025 1 - 1.03 [facility] Urobilinogen, UA 1.0 0.2 - 12 mg/dL [facility] US OB BPP W NON-STRESS on 06-22-[address] [address] Ultrasound Report Signed Patient: VIMAL FUNES MR#: [id number] : 2000 Acct:[id number] Age/Sex: 25 / F ADM Date: 06/22/25 Loc: US Attending Dr: Rossana Ramos Ordering Physician: Rossana Ramos Date of Service: 06/22/25 Procedure(s): US OB BPP w non-stress Accession Number(s): [id number] cc: Rossana Ramos; JENNIFER SEE [address] [address] Patient Name: VIMAL FUNES MRN: [facility]:[id number] date: 2000 Sex: F Assigned Patient Location: [facility] Current Patient Location: Accession/Order Number: [id number] Exam Date: 06/22/2025 10:52 Report Date: 06/22/2025 [...] Acharya M.D. 06/22/2025 7:28 PM Dictation Location: [place] [address] Electronically authenticated by: [id number] Y Date: 06/22/2025 19:28 Dictated By: Heriberto Acharya M.D. Signed By: 06/22/251930 DD/ 27 TD/TT: Structural Steel Equipment Erector: [facility] Radiology, Radiologist, - 06/22/[address] [address] Ultrasound Report Signed Patient: VIMAL FUNES MR#: [id number] : 2000 Acct:[id number] Age/Sex: 25 / F ADM Date: 06/22/25 Loc: US Attending Dr: Rossana Ramos Ordering Physician: Rossana Ramos Date of Service: 06/22/25 Procedure(s): US OB BPP w non-stress Accession Number(s): [id number] cc: Rossana Ramos; JENNIFER SEE [place] [address] Patient Name: VIMAL FUNES MRN: [facility]:[id number] date: 2000 Sex: F Assigned Patient Location: [facility] Current Patient Location: Accession/Order Number: [id number] Exam Date: 06/22/2025 10:52 Report Date: 06/22/2025 [...] Acharya M.D. 06/22/2025 7:28 PM Dictation Location: [place] [address] Electronically authenticated by: [id number] Y Date: 06/22/2025 19:28 Dictated By: Heriberto Acharya M.D. Signed By: 06/22/251930 DD/ 27 TD/TT: Structural Steel Equipment Erector: [facility] Radiology Study observation (narrative) [facility] US OB BPP W NON-STRESS Ordered By: Radiologist Radiology on 06-22-2025 [facility] Work Phone: Urinalysis macro (dipstick) panel (U)on 06-19-2025 Bilirubin, UA Negative Negative - 4(70) +++ mg/dL [facility] Blood, UA Negative Negative - 50 Jason/mcL [facility] Clarity, UA Cloudy [facility] re Color, UA Yellow [facility] Glucose, UA 1+ Negative - 1999(110) ++++ mg/dL [facility] Interpretation and review of laboratory results Abnormal [facility] Ketones, UA Negative Negative - 160(16) ++++ mg/dL [facility] Leukocytes, UA Negative Negative - 500+++ Carlos/mcL [facility] Nitrite, UA Negative Negative - Positive [facility] pH, UA 6 5 - 9 [facility] Protein, UA 1+ Negative - 1999(20) ++++ mg/dL [facility] Spec Grav, UA 1.015 1 - 1.03 [facility] Urobilinogen, UA 1.0 0.2 - 12 mg/dL [facility] US OB BPP W NON-STRESS on 06-15-2025 [place] [address] Ultrasound Report Signed Patient: VIMAL FUNES MR#: [id number] : 2000 Acct:[id number] Age/Sex: 25 / F ADM Date: 06/15/25 Loc: [facility] 251-[address]: Rossana Ramos Ordering Physician: Rossana Ramos Date of Service: 06/15/25 Procedure(s): US OB BPP w non-stress Accession Number(s): [id number] cc: Rossana Ramos; JENNIFER SEE [address] [address] Patient Name: VIMAL FUNES MRN: [id number]:[id number] date: 2000 Sex: F Assigned Patient Location: Current Patient Location: US Accession/Order Number: [id number] Exam Date: 06/15/2025 11:07 Report Date: 06/15/2025 12:51 At the request of: ROSSANA RAMOS Procedure: US OB BPP w non-stress Biophysical profile. Reason for exam: Gestational diabetes COMPARISON: 06/08/2025 TECHNIQUE: Transabdominal imaging of the gravid uterus was obtained. FINDINGS: The computer numerical control operator reports a BPP of 8 out of 8. DANYA is normal at 11.0 cm. heart rate 136 bpm. US/US OB BPP w non-stress IMPRESSION: BPP 8 out of 8. Impression dictated by: Amadou Carias M.D. 06/15/2025 12:51 PM Dictation Location: [place] [address] Electronically authenticated by: [id number] Y Date: 06/15/2025 12:51 Dictated By: Amadou Carias M.D. Signed By: 06/15/25 1254 DD/ 125 TD/TT: Structural Steel Equipment Erector: [facility] Radiology, Radiologist, MD - 06/15/2025 [place] [address] Ultrasound Report Signed Patient: VIMAL FUNES MR#: [id number] : 2000 Acct:[id number] Age/Sex: 25 / F ADM Date: 06/15/25 Loc: [facility] 251-[address]: Rossana Ramos Ordering Physician: Rossana Ramos Date of Service: 06/15/25 Procedure(s): US OB BPP w non-stress Accession Number(s): [id number] cc: JENNIFER Watkins [place] [id number] Patient Name: VIMAL FUNES MRN: [facility]:[id number] date: 2000 Sex: F Assigned Patient Location: US Current Patient Location: US Accession/Order Number: [id number] Exam Date: 06/15/2025 11:07 Report Date: 06/15/2025 12:51 At the request of: ROSSANA RAMOS Procedure: US OB BPP w non-stress Biophysical profile. Reason for exam: Gestational diabetes COMPARISON: 06/08/2025 TECHNIQUE: Transabdominal imaging of the gravid uterus was obtained. FINDINGS: The computer numerical control operator reports a BPP of 8 out of 8. DANYA is normal at 11.0 cm. heart rate 136 bpm. US/US OB BPP w non-stress IMPRESSION: BPP 8 out of 8. Impression dictated by: Amadou Carias M.D. 06/15/2025 12:51 PM Dictation Location: [place] [address] Electronically authenticated by: [id number] Y Date: 06/15/2025 12:51 Dictated By: Amadou Carias M.D. Signed By: 06/15/25 1254 DD/ 1251 TD/TT: Structural Steel Equipment Erector: [facility] Radiology Study observation (narrative) [facility] US OB BPP W NON-STRESS Ordered By: Radiologist Radiology on 06-15-2025 [facility] Work Phone: Urinalysis macro (dipstick) panel (U)on 06-12-2025 Bilirubin, UA Negative Negative - 4(70) +++ mg/dL [facility] Blood, UA Negative Negative - 50 Jason/mcL [facility] Clarity, UA Clear [facility] re Color, UA Yellow [facility] Glucose, UA Positive Negative - 1999(110) ++++ mg/dL [facility] Interpretation and review of laboratory results Abnormal [facility] Ketones, UA Negative Negative - 160(16) ++++ mg/dL [facility] Leukocytes, UA Negative Negative - 500+++ Carlos/mcL [facility] Nitrite, UA Negative Negative - Positive [facility] pH, UA 6.5 5 - 9 [facility] Protein, UA Negative Negative - 1999(20) ++++ mg/dL [facility] Spec Grav, UA 1.015 1 - 1.03 [facility] Urobilinogen, UA 1.0 0.2 - 12 mg/dL [facility] US OB BPP W NON-STRESS on 06-08-[address] [address] Ultrasound Report Signed Patient: VIMAL FUNES MR#: [id number] : 2000 Acct:[id number] Age/Sex: 25 / F ADM Date: 06/08/25 Loc: US Attending Dr: Rossana Ramos Ordering Physician: Rossana Ramos Date of Service: 06/08/25 Procedure(s): US OB BPP w non-stress Accession Number(s): [id number] cc: JENNIFER Watkins The [address] [id number] Patient Name: VIMAL FUNES MRN: [facility]:[id number] date: 2000 Sex: F Assigned Patient Location: [facility] Current Patient Location: Accession/Order Number: [id number] Exam Date: 06/08/2025 11:01 Report Date: 06/08/2025 [...] Knapp M.D. 06/08/2025 12:10 PM Dictation Location: [place] [address] Electronically authenticated by: [id number] Y Date: 06/08/2025 12:10 Dictated By: Shivam Knapp D.O. Signed By: 06/08/25 1213 DD/ 1210 TD/TT: Structural Steel Equipment Erector: [facility] Radiology, Radiologist, MD - 06/08/2025 [place] [address] Ultrasound Report Signed Patient: VIMAL FUNES MR#: [id number] : 2000 Acct:[id number] Age/Sex: 25 / F ADM Date: 06/08/25 Loc: US Attending Dr: Rossana Ramos Ordering Physician: Rossana Ramos Date of Service: 06/08/25 Procedure(s): US OB BPP w non-stress Accession Number(s): [id number] cc: JENNIFER Watkins [address] [phone] Patient Name: VIMAL FUNES MRN: [id number] date: 2000 Sex: F Assigned Patient Location: [facility] Current Patient Location: Accession/Order Number: [id number] Exam Date: 06/08/2025 11:01 Report Date: 06/08/2025 [...] Knapp M.D. 06/08/2025 12:10 PM Dictation Location: [place] [address] Electronically authenticated by: [id number] Y Date: 06/08/2025 12:10 Dictated By: Shivam Knapp D.O. Signed By: 06/08/25 1213 DD/ 1210 TD/TT: Structural Steel Equipment Erector: [facility] Radiology Study observation (narrative) [facility] US OB BPP W NON-STRESS Ordered By: Radiologist Radiology on 06-08-2025 [facility] Work Phone: US OB BPP W NON-STRESS on 06-01-2025 [place] [id number] Ultrasound Report Signed Patient: VIMAL FUNES MR#: [id number] : 2000 Acct:[id number] Age/Sex: 25 / F ADM Date: 06/01/25 Loc: US Attending Dr: Rossana Ramos Ordering Physician: Rossana Ramos Date of Service: 06/01/25 Procedure(s): US OB BPP w non-stress Accession Number(s): [id number] cc: JENNIFER Watkins [address] [address] Patient Name: VIMAL FUNES MRN: [facility]:[id number] date: 2000 Sex: F Assigned Patient Location: Current Patient Location: Accession/Order Number: [id number] Exam Date: 06/01/2025 10:59 Report Date: 06/01/2025 12:03 At the request of: ROSSANA RAMOS Procedure: US OB BPP w non-stress Biophysical profile. Reason for exam: Gestational diabetes COMPARISON: 05/25/2025 TECHNIQUE: Transabdominal imaging of the gravid uterus was obtained. FINDINGS: The computer numerical control operator reports a BPP of 8 out of 8. DANAY is normal at 11.0 cm. Cardiac activity was visualized by the computer numerical control operator per tech note. No heart rate was documented. US/US OB BPP w non-stress IMPRESSION: BPP 8 out of 8. Impression dictated by: Bulmaro Arias Jr., D.O. 06/01/2025 12:03 PM Dictation Location: [facility] Electronically authenticated by: [id number] Y Date: 06/01/2025 12:03 Dictated By: Bulmaro Arias M.D. Signed By: 06/01/25 1206 DD/ 1203 TD/TT: Structural Steel Equipment Erector: [facility] Radiology, Radiologist, MD - 06/01/[address] [address] Ultrasound Report Signed Patient: VIMAL FUNES MR#: [id number] : 2000 Acct:[id number] Age/Sex: 25 / F ADM Date: 06/01/25 Loc: US Attending Dr: Rossana Ramos Ordering Physician: Rossana Ramos Date of Service: 06/01/25 Procedure(s): US OB BPP w non-stress Accession Number(s): [id number] cc: Rsosana Ramos; JENNIFER SEE The [address] [address] Patient Name: VIMAL FUNES MRN: [facility]:[id number] date: 2000 Sex: F Assigned Patient Location: Current Patient Location: Accession/Order Number: [id number] Exam Date: 06/01/2025 10:59 Report Date: 06/01/2025 12:03 At the request of: ROSSANA RAMOS Procedure: US OB BPP w non-stress Biophysical profile. Reason for exam: Gestational diabetes COMPARISON: 05/25/2025 TECHNIQUE: Transabdominal imaging of the gravid uterus was obtained. FINDINGS: The computer numerical control operator reports a BPP of 8 out of 8. DANYA is normal at 11.0 cm. Cardiac activity was visualized by the computer numerical control operator per tech note. No heart rate was documented. US/US OB BPP w non-stress IMPRESSION: BPP 8 out of 8. Impression dictated by: Bulmaro Arias Jr., D.O. 06/01/2025 12:03 PM Dictation Location: [place] [address] Electronically authenticated by: [id number] Y Date: 06/01/2025 12:03 Dictated By: Bulmaro Arias M.D. Signed By: 06/01/25 1206 DD/ 1203 TD/TT: Structural Steel Equipment Erector: [facility] Radiology Study observation (narrative) [facility] US OB BPP W NON-STRESS Ordered By: Radiologist Radiology on 06-01-2025 [facility] Work Phone: Urinalysis macro (dipstick) panel (U)on 05-28-2025 Bilirubin, UA Negative Negative - 4(70) +++ mg/dL [facility] Blood, UA Negative Negative - 50 Jason/mcL [facility] Clarity, UA Clear [facility] re Color, UA Yellow [facility] Glucose, UA Negative Negative - 1999(110) ++++ mg/dL [facility] Interpretation and review of laboratory results Normal [facility] Ketones, UA Negative Negative - 160(16) ++++ mg/dL [facility] Leukocytes, UA Negative Negative - 500+++ Carlos/mcL [facility] Nitrite, UA Negative Negative - Positive [facility] pH, UA 6.5 5 - 9 [facility] Protein, UA Negative Negative - 1999(20) ++++ mg/dL [facility] Spec Grav, UA 1.005 1 - 1.03 [facility] Urobilinogen, UA 1.0 0.2 - 12 mg/dL [facility] US OB BPP W NON-STRESS on 05-25-2025 [place] [address] Ultrasound Report Signed Patient: VIMAL FUNES MR#: [id number] : 2000 Acct:[id number] Age/Sex: 25 / F ADM Date: 05/25/25 Loc: US Attending Dr: Rossana Ramos Ordering Physician: Rossana Ramos Date of Service: 05/25/25 Procedure(s): US OB BPP w non-stress Accession Number(s): [id number] cc: Rossana Ramos; JENNIFER SEE [place] [address] Patient Name: VIMAL FUNES MRN: [facility]:[id number] date: 2000 Sex: F Assigned Patient Location: [facility] Current Patient Location: Accession/Order Number: [id number] Exam Date: 05/25/2025 08:21 Report Date: 05/25/2025 [...] 05/25/2025 11:13 AM Dictation Location: [place] [address] Electronically authenticated by: [id number] Y Date: 05/25/2025 11:13 Dictated By: Heriberto Acharya M.D. Signed By: 05/25/25 1116 DD/ 1113 TD/TT: Structural Steel Equipment Erector: [facility] Radiology, Radiologist, - 05/25/2025 [place] [address] Ultrasound Report Signed Patient: VIMAL FUNES MR#: [id number] : 2000 Acct:[id number] Age/Sex: 25 / F ADM Date: 05/25/25 Loc: US Attending Dr: Rossana Ramos Ordering Physician: Rossana Ramos Date of Service: 05/25/25 Procedure(s): US OB BPP w non-stress Accession Number(s): [id number] cc: Rossana Ramos; JENNIFER SEE [place] [id number] Patient Name: VIMAL FUNES MRN: [facility]:[id number] date: 2000 Sex: F Assigned Patient Location: [facility] Current Patient Location: Accession/Order Number: [id number] Exam Date: 05/25/2025 08:21 Report Date: 05/25/2025 [...] 05/25/2025 11:13 AM Dictation Location: [place] [address] Electronically authenticated by: [id number] Y Date: 05/25/2025 11:13 Dictated By: Heriberto Acharya M.D. Signed By: 05/25/25 1116 DD/ 111 TD/TT: Structural Steel Equipment Erector: [facility] Radiology Study observation (narrative) [facility] US OB BPP W NON-STRESS Ordered By: Radiologist Radiology on 05-25-2025 [facility] Work Phone: Urinalysis macro (dipstick) panel (U)on 05-22-2025 Bilirubin, UA Negative Negative - 4(70) +++ mg/dL [facility] Blood, UA Negative Negative - 50 Jason/mcL [facility] Clarity, UA Clear [facility] re Color, UA Yellow [facility] e Glucose, UA Negative Negative - 1999(110) ++++ mg/dL [facility] Interpretation and review of laboratory results Normal [facility] Ketones, UA Negative Negative - 160(16) ++++ mg/dL [facility] Leukocytes, UA Negative Negative - 500+++ Carlos/mcL [facility] Nitrite, UA Negative Negative - Positive [facility] pH, UA 6 5 - 9 [facility] Protein, UA Negative Negative - 1999(20) ++++ mg/dL [facility] Spec Grav, UA 1.01 1 - 1.03 [facility] Urobilinogen, UA 0.2 0.2 - 12 mg/dL [facility] TOTAL PROTEIN 24 HOUR UR INEon 05-20-2025 Interpretation and review of laboratory results Abnormal [facility] Protein (U) [Mass/Vol] 6.7 mg/dL NINF - 11.9 mg/dL [facility]H TOTAL PROTEIN 24 HOUR URINE 194.3 High [facility] TOTAL VOLUME 24 HOUR URINE 2900 mL/24hr [facility] ALL CBC WITH AUTO DIFFon BASOPHILS ABSOLUTE AUTO 0 [facility] Basophils/100 WBC (Bld) 0.1 % Low 0.2 - 2.0 % [facility] Eosinophils/100 WBC (Bld) 1.7 % 0.9 - 7.0 % [facility] Erythrocyte distribution width (RBC) [Ratio] 12.7 % 11.0 - 15.0 % [facility] Hematocrit (Bld) [Volume fraction] 38.1 % 36.0 - 48.0 % [facility] Hemoglobin (Bld) [Mass/Vol] 13.3 g/dL 12.0 - 16.0 g/dL [facility] IMMATURE GRANULOCYTES ABS AUTO 0.06 High [facility] Immature granulocytes/100 WBC (Bld) 0.4 % 0.0 - 0.5 % [facility] Interpretation and review of laboratory results Abnormal [facility] LYMPHOCYTES ABSOLUTE AUTO 1.4 [facility] Lymphocytes/100 WBC (Bld) 9 % Low 20.5 - 60.0 % [facility] MCH (RBC) [Entitic mass] 31.9 pg 26.7 - 34.0 pg [facility] MCHC (RBC) [Mass/Vol] 34.9 g/dL 29.9 - 35.2 g/dL [facility] MCV (RBC) [Entitic vol] 91.4 fL 81.0 - 99.0 fL [facility] MONOCYTES ABSOLUTE AUTO 0.7 [facility] Monocytes/100 WBC (Bld) 4.7 % 1.7 - 12.0 % [facility] NEUTROPHILS ABSOLUTE AUTO 12.[address] [facility] Neutrophils/100 WBC (Bld) 84.1 % High 43.0 - 75.0 % [facility] Platelet mean volume (Bld) [Entitic vol] 11.2 fL 9.5 - 13.5 fL [facility] EO # 0.3 [facility] PLT 223 [facility] RBC 4.17 Low [facility] WBC 15 High [facility] US OB BPP W NON-STRESS on 05-18-2025 [place] [id number] Ultrasound Report Signed Patient: VIMAL FUNES MR#: [id number] : 2000 Acct:[id number] Age/Sex: 25 / F ADM Date: 05/18/25 Loc: US Attending Dr: Rossana Ramos Ordering Physician: Rossana Ramos Date of Service: 05/18/25 Procedure(s): US OB BPP w non-stress Accession Number(s): [id number] cc: Rossana Ramos; JENNIFER SEE [address] [address] Patient Name: VIMAL FUNES MRN: [facility]:[id number] date: 2000 Sex: F Assigned Patient Location: [facility] Current Patient Location: Accession/Order Number: [id number] Exam Date: 05/18/2025 11:16 Report Date: 05/18/2025 [...] 05/18/2025 5:08 PM Dictation Location: [place] [address] Electronically authenticated by: [id number] Y Date: 05/18/2025 17:08 Dictated By: Heriberto Acharya M.D. Signed By: 05/18/252016 DD/ 07 TD/TT: Structural Steel Equipment Erector: [facility] Radiology, Radiologist, MD - 05/18/2025 [place] [address] Ultrasound Report Signed Patient: VIMAL FUNES MR#: [id number] : 2000 Acct:[id number] Age/Sex: 25 / F ADM Date: 05/18/25 Loc: US Attending Dr: Rossana Ramos Ordering Physician: Rossana Ramos Date of Service: 05/18/25 Procedure(s): US OB BPP w non-stress Accession Number(s): [id number] cc: Rossana Ramos; JENNIFER SEE The [address] [address] Patient Name: VIMAL FUNES MRN: [facility]:[id number] date: 2000 Sex: F Assigned Patient Location: [facility] Current Patient Location: Accession/Order Number: [id number] Exam Date: 05/18/2025 11:16 Report Date: 05/18/2025 [...] Acharya M.D. 05/18/2025 5:08 PM Dictation Location: [facility] Electronically authenticated by: [id number] Y Date: 05/18/2025 17:08 Dictated By: Heriberto Acharya M.D. Signed By: 05/18/252016 DD/ 07 TD/TT: Structural [employer] Equipment Erector: [facility] Radiology Study observation (narrative) [facility] US OB BPP W NON-STRESS Ordered By: Radiologist Radiology on 05-18-2025 [facility] Work Phone: Glucose random or fasting- P OCTOrdered By: Sheridan Smallwood on 05-13-2025 External Glucose Fasting Or Random (Fbs) 80 [facility]oor System [facility] US OB BPP W NON-STRESS on 05-11-[address] [address] Ultrasound Report Signed Patient: VIMAL FUNES MR#: [id number] : 2000 Acct:[id number] Age/Sex: 25 / F ADM Date: 05/11/25 Loc: [facility] 253-[address]: Rossana Ramos Ordering Physician: Rossana Ramos Date of Service: 05/11/25 Procedure(s): US OB BPP w non-stress Accession Number(s): [id number] cc: JENNIFER Watkins The [place] [address] Patient Name: VIMAL FUNES MRN: [facility]:[id number] date: 2000 Sex: F Assigned Patient Location: [facility] Current Patient Location: [facility] Accession/Order Number: [id number] Exam Date: 05/11/2025 12:01 Report Date: 05/11/2025 12:02 At the request of: ROSSANA RAMOS Procedure: US OB BPP w non-stress Biophysical profile. Reason for exam: Gestational diabetes COMPARISON: 05/04/2025 TECHNIQUE: Transabdominal imaging of the gravid uterus was obtained. FINDINGS: The computer numerical control operator reports a BPP of 8 out of 8. DANYA is normal at 11.9 cm. heart rate 138 bpm. US/US OB BPP w non-stress IMPRESSION: BPP 8 out of 8. Impression dictated by: Bulmaro Arias Jr., D.O. 05/11/2025 12:02 PM Dictation Location: [place] [address] Electronically authenticated by: [id number] Y Date: 05/11/2025 12:02 Dictated By: Bulmaro Arias M.D. Signed By: 05/11/25 1204 DD/ 1202 TD/TT: [employer] Equipment Erector: [facility] Radiology, Radiologist, MD - 05/11/2025 [place] [address] Ultrasound Report Signed Patient: VIMAL FUNES MR#: [id number] : 2000 Acct:[id number] Age/Sex: 25 / F ADM Date: 05/11/25 Loc: [facility] 253-[address]: Rossana Ramos Ordering Physician: Rossana Ramos Date of Service: 05/11/25 Procedure(s): US OB BPP w non-stress Accession Number(s): [id number] cc: Rossana MANMER,JENNIFER [place] [address] Patient Name: VIMAL FUNES MRN: [facility]:[id number] date: 2000 Sex: F Assigned Patient Location: [facility] Current Patient Location: [facility] Accession/Order Number: [id number] Exam Date: 05/11/2025 12:01 Report Date: 05/11/2025 12:02 At the request of: ROSSANA RAMOS Procedure: US OB BPP w non-stress Biophysical profile. Reason for exam: Gestational diabetes COMPARISON: 05/04/2025 TECHNIQUE: Transabdominal imaging of the gravid uterus was obtained. FINDINGS: The computer numerical control operator reports a BPP of 8 out of 8. DANYA is normal at 11.9 cm. heart rate 138 bpm. US/US OB BPP w non-stress IMPRESSION: BPP 8 out of 8. Impression dictated by: Bulmaro Arias Jr., D.O. 05/11/2025 12:02 PM Dictation Location: [employer] Electronically authenticated by: [id number] Y Date: 05/11/2025 12:02 Dictated By: Bulmaro Arias M.D. Signed By: 05/11/25 1204 DD/ 1202 TD/TT: Structural [employer] Equipment Erector: [facility] CNS Response Radiology Study observation (narrative) [facility] CNS Response US OB BPP W NON-STRESS Ordered By: Radiologist Radiology on 05-11-2025 [facility] [employer] Work Phone: [facility] TOTAL PROTEIN 24 HOUR UR INEon 05-06-2025 TOTAL PROTEIN URINE RANDOM <6.0 NINF - 11.9 mg/dL [facility] CNS Response TOTAL VOLUME 24 HOUR URINE 3700 mL/24hr [facility] CNS Response CLINISYNC [facility] 2nd hr Glucose Tolerance 100 gm loadon 05-04-2025 Glucose Tolerance Test 2 Hour 186 [facility]oor [facility] ALL CBC WITH AUTO DIFFon BASOPHILS ABSOLUTE AUTO 0 [facility] CNS Response Basophils/100 WBC (Bld) 0.2 % 0.2 - 2.0 % [facility] CNS Response Eosinophils/100 WBC (Bld) 2.6 % 0.9 - 7.0 % [facility] Erythrocyte distribution width (RBC) [Ratio] 12.7 % 11.0 - 15.0 % [facility] Hematocrit (Bld) [Volume fraction] 39.5 % 36.0 - 48.0 % [facility] Hemoglobin (Bld) [Mass/Vol] 13.7 g/dL 12.0 - 16.0 g/dL [facility] IMMATURE GRANULOCYTES ABS AUTO 0.[address] [facility] Immature granulocytes/100 WBC (Bld) 0.4 % 0.0 - 0.5 % [facility] Interpretation and review of laboratory results Abnormal [facility] LYMPHOCYTES ABSOLUTE AUTO 1.6 [facility] Lymphocytes/100 WBC (Bld) 12.6 % Low 20.5 - 60.0 % [facility] MCH (RBC) [Entitic mass] 31.9 pg 26.7 - 34.[address] [facility] MCHC (RBC) [Mass/Vol] 34.7 g/dL 29.9 - 35.2 g/dL [facility] MCV (RBC) [Entitic vol] 92.1 fL 81.0 - 99.[address] [facility] MONOCYTES ABSOLUTE AUTO 0.6 [facility] Monocytes/100 WBC (Bld) 5 % 1.7 - 12.0 % [facility] NEUTROPHILS ABSOLUTE AUTO 9.[address] [facility] Neutrophils/100 WBC (Bld) 79.2 % High 43.0 - 75.0 % [facility] Platelet mean volume (Bld) [Entitic vol] 11 fL 9.5 - 13.[address] [facility] TBH EO # 0.3 [facility] TB PLT 226 [facility] TB RBC 4.29 [facility] TB WBC 12.5 High [facility] CLINISYNC Glucose tolerance, 1 houron 05-04-2025 Glucose Tolerance Test 1 Hour 234 [facility] Glucose tolerance, 3 hourson 05-04-2025 Glucose Tolerance Test 3 Hour 133 [facility] Glucose, tolerance fastingon 05-04-2025 Glucose Tolerance Test Fasting 108 [facility] No Panel Informationon 05-04 [facility] US OB BPP W NON-STRESS on 05-04-[address] [address] Ultrasound Report Signed Patient: VIMAL FUNES MR#: [id number] : 2000 Acct:[id number] Age/Sex: 25 / F ADM Date: 05/04/25 Loc: [facility] 250-[address]: Rossana Ramos Ordering Physician: Rossana Ramos Date of Service: 05/04/25 Procedure(s): US OB BPP w non-stress Accession Number(s): [id number] cc: Rossana Ramos; JENNIFER SEE The [place] [address] Patient Name: VIMAL FUNES MRN: [facility]:[id number] date: 2000 Sex: F Assigned Patient Location: [facility] Current Patient Location: [facility] Accession/Order Number: [id number] Exam Date: 05/04/2025 12:08 Report Date: 05/04/2025 12:09 At the request of: ROSSANA RAMOS Procedure: US OB BPP w non-stress Biophysical profile. Reason for exam: Gestational diabetes COMPARISON: None TECHNIQUE: Transabdominal imaging of the gravid uterus was obtained. FINDINGS: The computer numerical control operator reports a BPP of 8 out of 8. DANYA is normal at 12.4 cm. heart rate 150 bpm. US/US OB BPP w non-stress IMPRESSION: BPP 8 out of 8. Impression dictated by: Bulmaro Arias Jr., D.O. 05/04/2025 12:09 PM Dictation Location: [place] [address] Electronically authenticated by: [id number] Y Date: 05/04/2025 12:09 Dictated By: Bulmaro Arias M.D. Signed By: 05/04/25 1212 DD/ 1209 TD/TT: Structural Steel Equipment Erector: [facility] Radiology, Radiologist, - 05/04/2025 [place] [address] Ultrasound Report Signed Patient: VIMAL FUNES MR#: [id number] : 2000 Acct:[id number] Age/Sex: 25 / F ADM Date: 05/04/25 Loc: [facility] 250-[address]: Rossana Ramos Ordering Physician: Rossana Ramos Date of Service: 05/04/25 Procedure(s): US OB BPP w non-stress Accession Number(s): [id number] cc: Rossana Ramos; JENNIFER SEE [address] [address] Patient Name: VIMAL FUNES MRN: [id number] date: 2000 Sex: F Assigned Patient Location: [facility] Current Patient Location: [facility] Accession/Order Number: [id number] Exam Date: 05/04/2025 12:08 Report Date: 05/04/2025 12:09 At the request of: ROSSANA RAMOS Procedure: US OB BPP w non-stress Biophysical profile. Reason for exam: Gestational diabetes COMPARISON: None TECHNIQUE: Transabdominal imaging of the gravid uterus was obtained. FINDINGS: The computer numerical control operator reports a BPP of 8 out of 8. DANYA is normal at 12.4 cm. heart rate 150 bpm. US/US OB BPP w non-stress IMPRESSION: BPP 8 out of 8. Impression dictated by: Bulmaro Arias Jr., D.O. 05/04/2025 12:09 PM Dictation Location: [place] [address] Electronically authenticated by: [id number] Y Date: 05/04/2025 12:09 Dictated By: Bulmaro Arias M.D. Signed By: 05/04/25 1212 DD/ 1209 TD/TT: Structural Steel Equipment Erector: [facility] Radiology Study observation (narrative) [facility] US OB BPP W NON-STRESS Ordered By: Radiologist Radiology on 05-04-2025 [facility] LabDoorcar e Work Phone: US OB GROWTHon 05-04-[address] [address] Ultrasound Report Signed Patient: VIMAL FUNES MR#: [id number] : 2000 Acct:[id number] Age/Sex: 25 / F ADM Date: 05/04/25 Loc: [facility] 250-[address]: Rossana Ramos Ordering Physician: Rossana Ramos Date of Service: 05/04/25 Procedure(s): US OB growth Accession Number(s): [id number] cc: Rossana Ramos; JENNIFER SEE The [address] [address] Patient Name: VIMAL FUNES MRN: [facility]:[id number] date: 2000 Sex: F Assigned Patient Location: [facility] Current Patient Location: [facility] Accession/Order Number: [id number] Exam Date: 05/04/2025 12:06 Report Date: 05/04/2025 [...] Jr., D.O. 05/04/2025 12:08 PM Dictation Location: [facility] Electronically authenticated by: [id number] Y Date: 05/04/2025 12:08 Dictated By: Bulmaro Arias M.D. Signed By: 05/04/25 1211 DD/ 1208 TD/TT: Structural Steel Equipment Erector: [facility] Radiology, Radiologist, MD - 05/04/[address] [address] Ultrasound Report Signed Patient: VIMAL FUNES MR#: [id number] : 2000 Acct:[id number] Age/Sex: 25 / F ADM Date: 05/04/25 Loc: [facility] 250-[address]: Rossana Ramos Ordering Physician: Rossana Ramos Date of Service: 05/04/25 Procedure(s): US OB growth Accession Number(s): [id number] cc: Rossana Ramos; JENNIFER SEE [place] [id number] Patient Name: VIMAL FUNES MRN: [facility]:[id number] date: 2000 Sex: F Assigned Patient Location: [facility] Current Patient Location: [facility] Accession/Order Number: [id number] Exam Date: 05/04/2025 12:06 Report Date: 05/04/2025 [...] Jr., D.O. 05/04/2025 12:08 PM Dictation Location: [place] [address] Electronically authenticated by: [id number] Y Date: 05/04/2025 12:08 Dictated By: Bulmaro Arias M.D. Signed By: 05/04/25 1211 DD/ 1208 TD/TT: Structural Steel Equipment Erector: [facility] CNS Response Radiology Study observation (narrative) [facility] US OB GROWTHOrdered By: Jeimy zayas Radiology on 05-04-2025 [facility] [employer] Work Phone: Urinalysis macro (dipstick) panel (U)on 04-30-2025 Bilirubin, UA Negative Negative - 4(70) +++ mg/dL [facility] Blood, UA Negative Negative - 50 Jason/mcL [facility] Clarity, UA Clear [facility] Health[facility] re Color, UA Yellow [facility] LabDoorcar e Glucose, UA Positive Negative - 2000(110) ++++ mg/dL [facility] Interpretation and review of laboratory results Abnormal [facility] Ketones, UA Negative Negative - 160(16) ++++ mg/dL [facility] Leukocytes, UA Positive Negative - 500+++ Carlos/mcL [facility] Nitrite, UA Negative Negative - Positive [facility] pH, UA 6 5 - 9 [facility] Protein, UA Negative Negative - 1999(20) ++++ mg/dL [facility] Spec Grav, UA 1.01 1 - 1.03 [facility] Urobilinogen, UA 1.0 0.2 - 12 mg/dL [facility] Health[facility] ALL CBC WITH AUTO DIFFon BASOPHILS ABSOLUTE AUTO 0 [facility] Basophils/100 WBC (Bld) 0.2 % 0.2 - 2.0 % [facility] Eosinophils/100 WBC (Bld) 2.2 % 0.9 - 7.0 % [facility] Erythrocyte distribution width (RBC) [Ratio] 12.9 % 11.0 - 15.0 % [facility] Hematocrit (Bld) [Volume fraction] 40 % 36.0 - 48.0 % [facility] Hemoglobin (Bld) [Mass/Vol] 13.6 g/dL 12.0 - 16.0 g/dL [facility] IMMATURE GRANULOCYTES ABS AUTO 0.[address] [facility] Immature granulocytes/100 WBC (Bld) 0.3 % 0.0 - 0.5 % [facility] Interpretation and review of laboratory results Abnormal [facility] LYMPHOCYTES ABSOLUTE AUTO 1.4 [facility] Lymphocytes/100 WBC (Bld) 10.8 % Low 20.5 - 60.0 % [facility] MCH (RBC) [Entitic mass] 31.7 pg 26.7 - 34.[address] [facility] MCHC (RBC) [Mass/Vol] 34 g/dL 29.9 - 35.2 g/dL [facility] MCV (RBC) [Entitic vol] 93.2 fL 81.0 - 99.[address] [facility] MONOCYTES ABSOLUTE AUTO 0.5 [facility] Monocytes/100 WBC (Bld) 4.3 % 1.7 - 12.0 % [facility] NEUTROPHILS ABSOLUTE AUTO 10.[address] [facility] Neutrophils/100 WBC (Bld) 82.2 % High 43.0 - 75.0 % [facility] Platelet mean volume (Bld) [Entitic vol] 10.6 fL 9.5 - 13.[address] [facility] TBH EO # 0.3 [facility] TBH PLT 202 [facility] TB RBC 4.29 [facility] TB WBC 12.5 High [facility] CLINISYNC Glucose 1h post 50g loadon 0 04-27-2025 Glucose, 1 hr PP 50GM dose 171 [facility] No Panel Informationon 04-27 [facility] Health[facility] e Urinalysis macro (dipstick) panel (U)on 04-25-2025 Bilirubin, UA Negative Negative - 4(70) +++ mg/dL [facility] Blood, UA Negative Negative - 50 Jason/mcL [facility] Healthcare Clarity, UA Clear [facility] Color, UA Yellow [facility] Healthcar e Glucose, UA Negative Negative - 1999(110) ++++ mg/dL [facility] Interpretation and review of laboratory results Normal [facility] Ketones, UA Negative Negative - 160(16) ++++ mg/dL [facility] Leukocytes, UA Negative Negative - 500+++ Carlos/mcL [facility] Healthcare Nitrite, UA Negative Negative - Positive [facility] pH, UA 6.5 5 - 9 [facility] Protein, UA Negative Negative - 1999(20) ++++ mg/dL [facility] Spec Grav, UA 1.01 1 - 1.03 [facility] Urobilinogen, UA 0.2 0.2 - 12 mg/dL [facility] Urinalysis macro (dipstick) panel (U)on 04-11-2025 Bilirubin, UA Negative Negative - 4(70) +++ mg/dL [facility] Blood, UA Negative Negative - 50 Jason/mcL [facility] Healthcare Clarity, UA Clear [facility] Color, UA Yellow [facility] Health[facility] e Glucose, UA Negative Negative - 1999(110) ++++ mg/dL [facility] Interpretation and review of laboratory results Normal [facility] Ketones, UA Negative Negative - 160(16) ++++ mg/dL [facility] Healthcare Leukocytes, UA Negative Negative - 500+++ Carlos/mcL [facility] Healthcare Nitrite, UA Negative Negative - Positive [facility] pH, UA 7 5 - 9 [facility] Health[facility] e Protein, UA Negative Negative - 1999(20) ++++ mg/dL [facility] Spec Grav, UA 1.005 1 - 1.03 [facility] Urobilinogen, UA 1.0 0.2 - 12 mg/dL [facility] US OB INCOMPLETE ANATOMYon 0 03-25-2025 [place] [address] Ultrasound Report Signed Patient: VIMAL FUNES MR#: [id number] : 2000 Acct:[id number] Age/Sex: 24 / F ADM Date: 03/23/25 Loc: US Attending Dr: Jose Rodriguez D.O. Ordering Physician: Jose Rodriguez D.O. Date of Service: 03/23/25 Procedure(s): US OB incomplete anatomy Accession Number(s): [id number] cc: JENNIFER SEE ; Jose Rodriguez D.O. [place] [address] Patient Name: VIMAL FUNES MRN: [facility]:[id number] date: 2000 Sex: F Assigned Patient Location: US Current Patient Location: US Accession/Order Number: [id number] Exam Date: 03/25/2025 08:23 Report Date: 03/25/2025 [...] Brown M.D. 03/25/2025 8:25 AM Dictation Location: [place] [address] Electronically authenticated by: [id number] Y Date: 03/25/2025 08:25 Dictated By: Meghana Brown M.D. Signed By: 03/25/2527 DD/ 4 TD/TT: Structural Steel Equipment Erector: [facility] Radiology, Radiologist, MD - 03/25/2025 [place] [address] Ultrasound Report Signed Patient: VIMAL FUNES MR#: [id number] : 2000 Acct:[id number] Age/Sex: 24 / F ADM Date: 03/23/25 Loc: US Attending Dr: Jose Rodriguez D.O. Ordering Physician: Jose Rodriguez D.O. Date of Service: 03/23/25 Procedure(s): US OB incomplete anatomy Accession Number(s): [id number] cc: JENNIFER SEE ; Jose Rodriguez D.O. The [place] [address] Patient Name: VIMAL FUNES MRN: [facility]:[id number] date: 2000 Sex: F Assigned Patient Location: US Current Patient Location: US Accession/Order Number: [id number] Exam Date: 03/25/2025 08:23 Report Date: 03/25/2025 [...] Brown M.D. 03/25/2025 8:25 AM Dictation Location: [place] [address] Electronically authenticated by: [id number] Y Date: 03/25/2025 08:25 Dictated By: Meghana Brown M.D. Signed By: 03/25/25826 DD/ 4 TD/TT: Structural Steel Equipment Erector: [facility] Radiology Study observation (narrative) [facility] US OB INCOMPLETE ANATOMYOrde red By: Radiologist Radiology on 03-25-2025 [facility] [employer] Work Phone: Urinalysis macro (dipstick) panel (U)on 03-14-2025 Bilirubin, UA Negative Negative - 4(70) +++ mg/dL [facility] Blood, UA Negative Negative - 50 Jason/mcL [facility] Clarity, UA Clear [facility] re Color, UA Yellow [facility] e Glucose, UA Negative Negative - 2000(110) ++++ mg/dL [facility] Interpretation and review of laboratory results Normal [facility] Ketones, UA Negative Negative - 160(16) ++++ mg/dL [facility] Leukocytes, UA Negative Negative - 500+++ Carlos/mcL [facility] Nitrite, UA Negative Negative - Positive [facility] pH, UA 7 5 - 9 [facility] Protein, UA Negative Negative - 1999(20) ++++ mg/dL [facility] Spec Grav, UA 1.01 1 - 1.03 [facility] Urobilinogen, UA 0.2 0.2 - 12 mg/dL [facility] No Panel InformationOrdered By: Radiologist Radiology on 03-08-2025 [facility] Work Phone: No Panel Informationon 03-08 Radiology Study observation (narrative) [facility] US OB ANATOMYon 03-08-2025 [place] [address] Ultrasound Report Signed Patient: VIMAL FUNES MR#: [id number] : 2000 Acct:[id number] Age/Sex: 24 / F ADM Date: 03/08/25 Loc: US Attending Dr: Jose Rodriguez D.O. Ordering Physician: Jose Rodriguez D.O. Date of Service: 03/08/25 Procedure(s): US OB anatomy Accession Number(s): [id number] cc: JENNIFER SEE ; Jose Rodriguez D.O. The [address] [address] Patient Name: VIMAL FUNES MRN: [facility]:[id number] date: 2000 Sex: F Assigned Patient Location: US Current Patient Location: US Accession/Order Number: [id number] Exam Date: 03/08/2025 20:31 Report Date: 03/08/2025 [...] Knapp M.D. 03/08/2025 8:36 PM Dictation Location: [place] [address] Electronically authenticated by: [id number] Y Date: 03/08/2025 20:36 Dictated By: Shivam Knapp D.O. Signed By: 03/08/252037 DD/ 35 TD/TT: Structural Steel Equipment Erector: [facility] Radiology, Radiologist, MD - 03/08/2025 The [place] [id number] Ultrasound Report Signed Patient: VIMAL FUNES MR#: [id number] : 2000 Acct:[id number] Age/Sex: 24 / F ADM Date: 03/08/25 Loc: US Attending Dr: Jose Rodriguez D.O. Ordering Physician: Jose Rodriguez D.O. Date of Service: 03/08/25 Procedure(s): US OB anatomy Accession Number(s): [id number] cc: JENNIFER SEE ; Jose Rodriguez D.O. [place] [address] Patient Name: VIMAL FUNES MRN: [id number]:[id number] date: 2000 Sex: F Assigned Patient Location: US Current Patient Location: US Accession/Order Number: [id number] Exam Date: 03/08/2025 20:31 Report Date: 03/08/2025 [...] Knapp M.D. 03/08/2025 8:36 PM Dictation Location: [employer] Electronically authenticated by: [id number] Y Date: 03/08/2025 20:36 Dictated By: Shivam Knapp D.O. Signed By: 03/08/252037 DD/ 35 TD/TT: Structural [employer] Equipment Erector: ARJUN Martinez OB CERVICAL LENGTHon 02-24 [place] [address] Ultrasound Report Signed Patient: VIMAL FUNES MR#: [id number] : 2000 Acct:[id number] Age/Sex: 24 / F ADM Date: 03/08/25 Loc: US Attending Dr: Jose Rodriguez D.O. Ordering Physician: Jose Rodriguez D.O. Date of Service: 03/08/25 Procedure(s): US OB cervical length Accession Number(s): [id number] cc: JENNIFER SEE ; Jose Rodriguez D.O. [place] [address] Patient Name: VIMAL FUNES MRN: [id number] date: 2000 Sex: F Assigned Patient Location: US Current Patient Location: US Accession/Order Number: [id number] Exam Date: 03/08/2025 20:31 Report Date: 03/08/2025 [...] Knapp M.D. 03/08/2025 8:36 PM Dictation Location: [place] [address] Electronically authenticated by: [id number] Y Date: 03/08/2025 20:36 Dictated By: Shivam Knapp D.O. Signed By: 03/08/252037 DD/ 35 TD/TT: Structural Steel Equipment Erector: [facility] Radiology, Radiologist, MD - 03/08/2025 [place] [address] Ultrasound Report Signed Patient: VIMAL FUNES MR#: [id number] : 2000 Acct:[id number] Age/Sex: 24 / F ADM Date: 03/08/25 Loc: US Attending Dr: Jose Rodriguez D.O. Ordering Physician: Jose Rodriguez D.O. Date of Service: 03/08/25 Procedure(s): US OB cervical length Accession Number(s): [id number] cc: JENNIFER SEE ; Jose Rodriguez D.O. The [place] [id number] Patient Name: VIMAL FUNES MRN: [facility]:[id number] date: 2000 Sex: F Assigned Patient Location: US Current Patient Location: US Accession/Order Number: [id number] Exam Date: 03/08/2025 20:31 Report Date: 03/08/2025 [...] Knapp M.D. 03/08/2025 8:36 PM Dictation Location: [employer] Electronically authenticated by: [id number] Y Date: 03/08/2025 20:36 Dictated By: Shivam Knapp D.O. Signed By: 03/08/252037 DD/ 35 TD/TT: Structural [employer] Equipment Erector: [facility] IGP,APTIMA HPV,AGE GDLNon AGE GDLN ACOG TESTING Note . [facility] Comment on above: TESTS RESULT FLAG UN ITS REF RANGE LAB Clinician Provided Cytology Information Source.............[employer] No. of containers..01 ThinPrep Vial Age Algo ACOG Yris... FLAG LEGEND: L-Low Normal,H-High Normal,LL-Alert Low,HH-Alert High <-Panic Low,>-Panic High,A-Abnormal,AA-Critical Abnormal Performed at: 01 =G [facility] [address] [facility] [place] [id number] Jenise Byrne MD, IGP, RFX APTIMA HPV ASCU Note . [facility] Comment on above: TESTS RESULT FLAG UN ITS REF RANGE LAB DIAGNOSIS: 02 NEGATIVE FOR INTRAEPITHELIAL LESION OR MALIGNANCY. Specimen adequacy: 02 Satisfactory for evaluation. Endocervical and/or squamous metaplastic cells (endocervical component) are present. Performed by: Hussein Alvarez, [place] ([facility]) . 02 Note: Note 02 The [...] Performed at: 02 [facility] [place] [address] [facility] [address] Jenise Byrne MD, Performed at: = - [facility], [place] [id number] Election Assistant: Jenise Byrne MD, Phone: [phone] Performed at: [facility], [place] [id number] Election Assistant: Jenise Byrne MD, Phone: [phone] SPATULA-ALONE ENDOCERVIX [facility] Healthcar e RECURRENT VAGINITIS (HTRX)on 02-22-2025 ATOPOBIUM [...] Negative Negative - 4(70) +++ mg/dL [facility] Blood, UA Negative Negative - 50 Jason[facility]mcL [facility] Clarity, UA Clear [facility] re Color, UA Yellow [facility] Glucose, UA Negative Negative - 2000(110) ++++ mg/dL [facility] Interpretation and review of laboratory results Abnormal [facility] Ketones, UA Negative Negative - 160(16) ++++ mg/dL [facility] Leukocytes, UA Negative Negative - 500+++ Carlos/mcL [facility] Nitrite, UA Negative Negative - Positive [facility] pH, UA 7 5 - 9 [facility] Protein, UA Negative Negative - 1999(20) ++++ mg/dL [facility] Spec Grav, UA 1.01 1 - 1.03 [facility] Urobilinogen, UA 0.2 0.2 - 12 mg/dL [facility] Unlisted Lab Teston 01-16-20 [facility] Urinalysis macro (dipstick) panel (U)on 01-14-2025 Bilirubin, UA Negative Negative - 4(70) +++ mg/dL [facility] Blood, UA Positive Negative - 50 Jason/mcL [facility] Comment on above: trace-intact Clarity, UA Clear [facility] Healthnj re Color, UA Yellow [facility] Glucose, UA Negative Negative - 1999(110) ++++ mg/dL [facility] Interpretation and review of laboratory results Abnormal [facility] Ketones, UA Negative Negative - 160(16) ++++ mg/dL [facility] Leukocytes, UA Negative Negative - 500+++ Carlos/mcL [facility] Nitrite, UA Negative Negative - Positive [facility] pH, UA 6 5 - 9 [facility] Protein, UA Negative Negative - 1999(20) ++++ mg/dL [facility] Spec Grav, UA 1.005 1 - 1.03 [facility] Urobilinogen, UA 0.2 0.2 - 12 mg/dL [facility] Healthcar e Free Cell DNA (Non-Pro Medica Send Out)on 01-13-2025 [facility] ALL CBC WITH AUTO DIFFon BASOPHILS ABSOLUTE AUTO 0 [facility] Basophils/100 WBC (Bld) 0.4 % 0.2 - 2.0 % [facility] Eosinophils/100 WBC (Bld) 1.7 % 0.9 - 7.0 % [facility] Erythrocyte distribution width (RBC) [Ratio] 12.3 % 11.0 - 15.0 % [facility] IMMATURE GRANULOCYTES ABS AUTO 0.02 [facility] Immature granulocytes/100 WBC (Bld) 0.2 % 0.0 - 0.5 % [facility] Interpretation and review of laboratory results Abnormal [facility] LYMPHOCYTES ABSOLUTE AUTO 1.4 [facility] Lymphocytes/100 WBC (Bld) 15.4 % Low 20.5 - 60.0 % [facility] MCH (RBC) [Entitic mass] 31.6 pg 26.7 - 34.[address] [facility] MCHC (RBC) [Mass/Vol] 34.6 g/dL 29.9 - 35.2 g/dL [facility] MCV (RBC) [Entitic vol] 91.4 fL 81.0 - 99.[address] [facility] MONOCYTES ABSOLUTE AUTO 0.5 [facility] Monocytes/100 WBC (Bld) 5.4 % 1.7 - 12.0 % [facility] NEUTROPHILS ABSOLUTE AUTO [address] [facility] Neutrophils/100 WBC (Bld) 76.9 % High 43.0 - 75.0 % [facility] Platelet mean volume (Bld) [Entitic vol] 10.1 fL 9.5 - 13.[address] [facility] TBH EO # 0.2 [facility] TB[facility] PLT 216 [facility] TB RBC 4.65 [facility] Health[facility] TBH WBC 9.2 [facility] CL[facility]ISYNC CBC without diffOrdered By: Lay Peacock on 01-05-2025 Rbc Mcv (Fl) By Automated Count 91.4 [facility] Drug Screen, Urineon 025 Amphetamine/Methamphet amine Negative [facility] Barbiturates Negative [facility] Benzodiazepines Negarive [facility] Cocaine Metabolite Negative [facility] Ecstasy Negative [facility] Methadone Negative [facility] Opiates Negative [facility] Phencyclidine Negative [facility] Thc Marijuana, Urine Negative [facility] HBV surface Ag IA Qlon 01-05 Hepatitis B Surface Antigen Negative [facility] HIV 1+2 Ab+HIV1 p24 Ag IA Ql on 01-05-2025 HIV 1&2 AB/AG Non-Reactive [facility] Hemoglobin A1con 01-05-2025 HbA1c (Bld) [Mass fraction] 5 % 4.0 - 6.0 % [facility] Laboratory - Hematology and Cell countson 01-05-2025 Hematocrit (Bld) [Volume fraction] 42.5 % [facility] [facility] Hemoglobin (Bld) [Mass/Vol] 14.7 g/dL [facility] Healthcare No Panel Informationon 01-05 [facility] Rubella IGG immune statuson 01-05-2025 Rubella immune IgG 1.57 [facility] Type and screenon 01-05-2025 Abo/Rh(D) Positive [facility] US OB TRANSVAGINALon 025 US OB [...] II, MD, PHD at 14-Dec-2024 08:35:59 PM [facility] Normal Not Available Comment on above: Order Comment: US OB TRANSVAGINAL No LMP recorded. TBH PREG QUANT HCGon 025 HCG QUANTITATIVE 87770 mIU/mL [facility] Hea lthcare Comment on above: 5-50 0.2-1 WEEK 50-500 1-2 WEEKS 100-5,000 2-3 WEEKS 500-10,000 3-4 WEEKS 1,000-50,000 4-5 WEEKS 10,000-100,000 5-6 WEEKS 15,000-200,000 6-8 WEEKS 10,000-100,000 2-3 [facility] PREG QUANT HCGon 11-19- 025 HCG QUANTITATIVE 6254 mIU/mL [facility] Comment on above: 5-50 0.2-1 WEEK 50-500 1-2 WEEKS 100-5,000 2-3 WEEKS 500-10,000 3-4 WEEKS 1,000-50,000 4-5 WEEKS 10,000-100,000 5-6 WEEKS 15,000-200,000 6-8 WEEKS 10,000-100,000 2-3 MONTHS [facility] PREG QUANT HCGon 024 HCG QUANTITATIVE 6 mIU/mL [facility] ltare Comment on above: 5-50 0.2-1 WEEK 50-500 1-2 WEEKS 100-5,000 2-3 WEEKS 500-10,000 3-4 WEEKS 1,000-50,000 4-5 WEEKS 10,000-100,000 5-6 WEEKS 15,000-200,000 6-8 WEEKS 10,000-100,000 2-3 [facility] CBC WITH AUTO DIFFon BASOPHILS ABSOLUTE AUTO [address] [facility] Basophils/100 WBC (Bld) 0.5 % 0.2 - 2.0 % [facility] Eosinophils/100 WBC (Bld) 6.2 % 0.9 - 7.0 % [facility] Erythrocyte distribution width (RBC) [Ratio] 11.9 % 11.0 - 15.0 % [facility] Hematocrit (Bld) [Volume fraction] 43.8 % 36.0 - 48.0 % [facility] Hemoglobin (Bld) [Mass/Vol] 14.8 g/dL 12.0 - 16.0 g/dL [facility] IMMATURE GRANULOCYTES ABS AUTO 0.02 [facility] Immature granulocytes/100 WBC (Bld) 0.2 % 0.0 - 0.5 % [facility] LYMPHOCYTES ABSOLUTE AUTO 2 [facility] Lymphocytes/100 WBC (Bld) 22.1 % 20.5 - 60.0 % [facility] MCH (RBC) [Entitic mass] 31.7 pg 26.7 - 34.[address] [facility] MCHC (RBC) [Mass/Vol] 33.8 g/dL 29.9 - 35.2 g/dL [facility] MCV (RBC) [Entitic vol] 93.8 fL 81.0 - 99.[address] [facility] MONOCYTES ABSOLUTE AUTO 0.5 [facility] Monocytes/100 WBC (Bld) 5.3 % 1.7 - 12.0 % [facility] NEUTROPHILS ABSOLUTE AUTO 5.8 [facility] Neutrophils/100 WBC (Bld) 65.7 % 43.0 - 75.0 % [facility] Platelet mean volume (Bld) [Entitic vol] 10 fL 9.5 - 13.[address] [facility] TBH EO # 0.6 [facility] TBH PLT 236 [facility] TB[facility] RBC 4.67 [facility] TBH WBC 8.9 [facility] Health[facility] e [place] 08-10-2024 L Specimen: [id number] Received: 08/10/24 Status: CAROL Hoang Num: [id number] Spec Type: Surgical Subm Dr: Jose Rodriguez Tissues: A Products of Conception - Spontaneous or Missed (CONTENTS OF CONCEPT Procedures: HE/2, Gross/Micro L4 Age/ Patient Sex Location Account Attending Physician Vimal Funes / LABELL [id number] Jose Rodriguez SPEC NUM: [id number] RECD: 08/10/24 STATUS: CAROL ELENA NUM: [id number] CAROLIN: 08/10/24 [facility] DR: Jose Rodriguez ENTERED: 08/10/[address] [facility] [address]: Nadir,Lab SPEC TYPE: Surgical DEPT: MONICA ALTMAN ENTERED BY: [id number] RECV BY: [id number] ORDERED: HE/2, Gross/Micro L4 ORDERED: HE/2, Gross/Micro [...] villi and decidua. No tissue is identified. Pressure Tester Operator sections of the chorionic villi are submitted in cassette A1 with community relations representative sections of the decidua is submitted in cassette A2. (2, ss, [id number]) CPT Codes 13022 Specimen: [id number] Received: 08/10/24 Status: CAROL Hoang Num: [id number] Spec Type: Surgical Subm Dr: Jose Rodriguez Tissues: A Products of Conception - Spontaneous or Missed (CONTENTS OF CONCEPT Procedures: HE/2, Gross/Micro L4 Patient: Vimal Funes [id number] (Continued) Signed (signature on file) Josh Aragon MD 08/13/24 7849 Normal [facility] TB PREG QUANT HCGon 024 HCG QUANTITATIVE 240 mIU/mL [facility] Comment on above: 5-50 0.2-1 WEEK 50-500 1-2 WEEKS 100-5,000 2-3 WEEKS 500-10,000 3-4 WEEKS 1,000-50,000 4-5 WEEKS 10,000-100,000 5-6 WEEKS 15,000-200,000 6-8 WEEKS 10,000-100,000 2-3 MONTHS CLINISYNC [facility] ALL CBC WITH AUTO DIFFon BASOPHILS ABSOLUTE AUTO 0.1 [facility] Basophils/100 WBC (Bld) 0.5 % 0.2 - 2.0 % [facility] Eosinophils/100 WBC (Bld) 2.8 % 0.9 - 7.0 % [facility] Erythrocyte distribution width (RBC) [Ratio] 11.9 % 11.0 - 15.0 % [facility] Hematocrit (Bld) [Volume fraction] 44.7 % 36.0 - 48.0 % [facility] Hemoglobin (Bld) [Mass/Vol] 15.3 g/dL 12.0 - 16.0 g/dL [facility] IMMATURE GRANULOCYTES ABS AUTO 0.03 [facility] Immature granulocytes/100 WBC (Bld) 0.3 % 0.0 - 0.5 % [facility] Interpretation and review of laboratory results Abnormal [facility] LYMPHOCYTES ABSOLUTE AUTO 1.6 [facility] Lymphocytes/100 WBC (Bld) 14.9 % Low 20.5 - 60.0 % [facility] MCH (RBC) [Entitic mass] 31.7 pg 26.7 - 34.[address] [facility] MCHC (RBC) [Mass/Vol] 34.2 g/dL 29.9 - 35.2 g/dL [facility] MCV (RBC) [Entitic vol] 92.7 fL 81.0 - 99.[address] [facility] MONOCYTES ABSOLUTE AUTO 0.[facility] Monocytes/100 WBC (Bld) 3.7 % 1.7 - 12.0 % [facility] NEUTROPHILS ABSOLUTE AUTO 8.[address] [facility] Neutrophils/100 WBC (Bld) 77.8 % High 43.0 - 75.0 % [facility] Platelet mean volume (Bld) [Entitic vol] 10 fL 9.5 - 13.[address] [facility] TBH EO # 0.3 [facility] TBH PLT 263 [facility] TB RBC 4.82 [facility] TB[facility] WBC 10.6 [facility] No Panel Informationon 07-21 [facility] TB DRUG SCREEN RAPID (URINE )on 07-21-2024 AMPHETAMINE SCREEN URINE Negative NEGATIVE [facility] BARBITURATES SCREEN URINE Negative NEGATIVE [facility] BENZODIAZEPINES SCREEN URINE Negative NEGATIVE [facility] BUPRENORPHINE SCREEN URINE Negative NEGATIVE [facility] Comment on above: DRUG CLASS [...] ng/mL CANNABINOID SCREEN URINE Negative NEGATIVE [facility] COCAINE SCREEN URINE Negative NEGATIVE [facility] METHADONE SCREEN URINE Negative NEGATIVE NO MS [facility] METHAMPHETAMINES SCREEN URINE Negative NEGATIVE [facility] OPIATE SCREEN URINE Negative NEGATIVE [facility] OXYCODONE SCREEN URINE Negative NEGATIVE NO [facility] PHENCYCLIDINE SCREEN URINE Negative NEGATIVE [facility] TRICYCLIC ANTIDEPRESSANT URINE Negative NEGATIVE [facility] REEFLEX IF POSITIVE CLIN[facility]NC HCG ( test) Ql (U)o n 06-29-2024 Interpretation and review of laboratory results Abnormal [facility] Preg Test, Ur Positive [facility] Urinalysis macro (dipstick) panel (U)on 06-29-2024 Bilirubin, UA Negative Negative - 4(70) +++ mg/dL [facility] Blood, UA Negative Negative - 50 Jason/mcL [facility] Clarity, UA Clear [facility] re Color, UA Yellow [facility] Glucose, UA Negative Negative - 1999(110) ++++ mg/dL [facility] Interpretation and review of laboratory results Normal [facility] Ketones, UA Negative Negative - 160(16) ++++ mg/dL [facility] Leukocytes, UA Negative Negative - 500+++ Carlos/mcL [facility] Nitrite, UA Negative Negative - Positive [facility] pH, UA 7.0 5 - 9 [facility] Protein, UA Negative Negative - 1999(20) ++++ mg/dL [facility] Spec Grav, UA 1.015 1 - 1.03 [facility] Urobilinogen, UA 0.2 0.2 - 12 mg/dL [facility] Health[facility] XR hand RT min 3V*on 023 XR hand RT min 3V* [facility] Other XR hand RT min 3V* [facility] Other XR hand RT min 3V* [facility] [employer] Other XR hand RT min 3V* CASSIE [place] [id number] [employer] Other XR hand RT min 3V* XRay Report [employer] Other XR hand RT min 3V* Signed [employer] Other XR hand RT min 3V* Patient: Vimal Funes MR#: [id number] [place] [facility] Other XR hand RT min 3V* 18 [employer] Other XR hand RT min 3V* : 2000 Acct:[id number] [employer] Other XR hand RT min 3V* Age/Sex: 22 / F ADM Date: 12/26/22 [employer] Other XR hand RT min 3V* Loc: XDUCLY Room: Type: [facility] [employer] Other XR hand RT min 3V* Attending Dr: Jennifer GIL [employer] Other XR hand RT min 3V* Copies to: JEFFERY Rodriguez [employer] Other XR hand RT min 3V* Ordering Provider: JEFFERY Rodriguez [employer] Other XR hand RT min 3V* Date of Service: 12/26/22 [employer] Other XR hand RT min 3V* XR/XR hand RT min 3V*: RIGHT HAND INJURY [employer] Other XR hand RT min 3V* RIGHT HAND - 4 views [employer] Other XR hand RT min 3V* REASON FOR EXAM: Patient had right thumb hyperextended yesterday when trying to open the door. Now [employer] Other XR hand RT min 3V* with pain. [employer] Other XR hand RT min 3V* COMPARISON: None [employer] Other XR hand RT min 3V* FINDINGS: [employer] Other XR hand RT min 3V* No focal soft tissue abnormality. There appears to be avulsion fracture involving the base of the [employer] Other XR hand RT min 3V* distal phalanx of the thumb. Joint spaces appear maintained. No bony erosions. [employer] Other XR hand RT min 3V* XR/XR hand RT min 3V* [employer] Other XR hand RT min 3V* IMPRESSION: [employer] Other XR hand RT min 3V* AVULSION FRACTURE INVOLVING THE BASE OF THE DISTAL PHALANX OF THE THUMB. [employer] Other XR hand RT min 3V* Impression dictated by: Bulmaro Arias Jr., Bahman12/26/2022 1:44 PM [employer] Other XR hand RT min 3V* Dictation Location: [facility]--15 [employer] Other XR hand RT min 3V* Transcribed By: LYNETTE 12/26/22 1344 [employer] Other XR hand RT min 3V* Dictated By: Bulmaro Arias Jr, DO 12/26/[address] [facility] Other XR hand RT min 3V* Signed By: [facility] Other XR hand RT min 3V* 12/26/22 1344 [facility] Other PAP ACOG PANEL 2: 22 to 30on 11-09-2022 . . Normal [facility] Comment on above: Performed By: #### [id number] ####[facility] [address] [place] [address]DrGene Mancini Age Gdln ACOG Testing - [facility] Comment on above: Performed By: #### [id number] ####[facility] [id number] [place], [place] [address]DrGene Mancini DIAGNOSIS: Comment [facility] Comment on above: Result Comment: NEGA TIVE FOR INTRAEPITHELIAL LESION OR MALIGNANCY. Performed By: #### [id number] ####[facility] [address] [place], [place] [address]DrGene Mancini Methodology: Comment [facility] Comment on above: Result Comment: This liquid based ThinPrep(R) pap test was screened with the use of an image guided system. Performed By: #### 4 [id number] ####[facility] [id number] [place], [place] [address]DrGene Mancini Note: Comment [facility] Comment on above: Result Comment: The Pap smear is a screening test designed to aid in the detection of premalignant and malignant conditions of the uterine cervix. It is not a diagnostic procedure and should not be used as the sole means of detecting cervical cancer. Both false-positive and false-negative reports do occur. . Performed By: #### 4 [id number] ####[facility] [address] [place], [place] [address]DrGene Mancini Performed by: Comment Normal [facility] Comment on above: Result Comment: Zuleima iLn, Clinical Manager (ASCP) Performed By: #### 4 [id number] ####[facility] [address] [place] [address]DrGene Mancini Reflex Criteria: Comment Normal [facility] Comment on above: Result Comment: The HPV DNA reflex criteria were not met with this specimen result therefore, no HPV testing was performed. . Performed By: #### 4 [id number] ####[facility] [address] [place] [address]DrGene Mancini Specimen adequacy: Comment Normal [facility] Comment on above: Result Comment: Sati sfactory for evaluation. Endocervical and/or squamous metaplastic cells (endocervical component) are present. Performed By: #### 4 [id number] ####[facility] [address] [place] [address]DrGene Mancini Cytology Cervical or vaginal smear or scraping studyOrdered By: Jael Nix on 11-02-2022 [facility] CBC AUTO DIFFon 08-11-2022 BASO # 0.0 103/ul Normal 0.0-0.1 [facility] Comment on above: Performed By: #### C T/NGNA #### [facility] [address] [place] [address] [address] Donis Mancini Basophils/100 WBC (Bld) 0.2 % Normal 0.2-2.0 [facility] Comment on above: Performed By: #### C T/NGNA #### [facility] [address] [place] [address] Dr. Donis Mancini EO # 0.1 103/ul Normal 0.0-0.7 [facility] Comment on above: Performed By: #### C T/NGNA #### [facility] [address] [address] [address] Donis Mancini Eosinophils/100 WBC (Bld) 0.5 % Critically low 0.9-7.0 [facility] Comment on above: Performed By: #### C T/NGNA #### [facility] [address] [place] [address] Dr. Donis Mancini Erythrocyte distribution width (RBC) [Ratio] 12.5 % Normal 11.0-15.0 [facility] Comment on above: Performed By: #### C T/NGNA #### [facility] [address] [place] [address] Dr. Donis Mancini Hematocrit (Bld) [Volume fraction] 35.9 % Critically low 36.0-48.0 [facility] Comment on above: Performed By: #### C T/NGNA #### [facility] [address] [place] [address] Dr. Donis Mancini Hemoglobin (Bld) [Mass/Vol] 12.4 g/dL Normal 12.0-16.0 [facility] Comment on above: Result Comment: michelet ent delivered Performed By: #### C T/NGNA #### [facility] [address] [place] [address] Dr. Donis Mancini IG # 0.10 10e3/ul Critically high 0.00-0.03 [facility] Comment on above: Performed By: #### C T/NGNA #### [facility] [address] [place] [address] Dr. Donis Mancini IG % 0.5 % Normal 0.0-0.5 [facility] Comment on above: Performed By: #### C T/NGNA #### [facility] [address] [place] [address] Dr. Donis Mancini LYMPH # 1.5 103/ul Normal 1.2-3.8 [facility] Comment on above: Performed By: #### C T/NGNA #### [facility] [address] [place] [address] Dr. Donis Mancini Lymphocytes/100 WBC (Bld) 7.6 % Critically low 20.5-60.0 [facility] Comment on above: Performed By: #### C T/NGNA #### [facility] [address] [place] [address] Dr. Donis Mancini MANUAL DIFF REQ NO Normal [facility] Comment on above: Performed By: #### C T/NGNA #### [facility] [address] [place] [address] Dr. Donis Mancini MCH (RBC) [Entitic mass] 32.2 pg Normal 26.7-34.0 [facility] Comment on above: Performed By: #### C T/NGNA #### [facility] [address] [place] [address] Dr. Donis Mancini MCHC (RBC) [Mass/Vol] 34.5 g/dL Normal 29.9-35.2 [facility] Comment on above: Performed By: #### C T/NGNA #### [facility] [address] [place] [address] Dr. Donis Mancini MCV (RBC) [Entitic vol] 93.2 fL Normal 81.0-99.0 [facility] Comment on above: Performed By: #### C T/NGNA #### [facility] [address] [place] [address] Dr. Donis Mancini MONO # 1.3 103/ul Critically high 0.3-0.8 [facility] Comment on above: Performed By: #### C T/NGNA #### [facility] [address] [place] [address] Dr. Donis Mancini Monocytes/100 WBC (Bld) 6.8 % Normal 1.7-12.0 [facility] Comment on above: Performed By: #### C T/NGNA #### [facility] [address] [place] [address] Dr. Donis Mancini NEUT # 16.2 103/ul Critically high 1.4-6.5 [facility] Comment on above: Performed By: #### C T/NGNA #### [facility] [address] [place] [address] Dr. Donis Mancini Neutrophils/100 WBC (Bld) 84.4 % Critically high 43.0-75.0 [facility] Comment on above: Performed By: #### C T/NGNA #### [facility] [address] [place] [address] Dr. Donis Mancini Platelet mean volume (Bld) [Entitic vol] 11.8 fL Normal 9.5-13.5 [facility] Comment on above: Performed By: #### C T/NGNA #### [facility] [address] [place], [place] [address] Dr. Donis Mancini PLT 156 103/ul Normal 150-450 [facility] Comment on above: Performed By: #### C T/NGNA #### [facility] [address] [place], [place] [address] Dr. Donis Mancini RBC 3.85 106/ul Critically low 4.20-5.40 [facility] [facility] Comment on above: Performed By: #### C T/NGNA #### [facility] [id number] Donis Mancini WBC 19.2 103/ul Critically high 4.0-11.0 [facility] Comment on above: Performed By: #### C T/NGNA #### [facility] [id number] Donis Mancini Covid-19 PCR ([facility])on 07-27 SARS-CoV-2 (COVID-19) RNA INESSA+probe Ql (Unsp spec) Not detected Normal NOT DETECTED [facility] Comment on above: Result Comment: When [...] for this test is supported by the [place] of Health and Human Service's declaration that [...] be used). Performed By: #### C VDTBH ####[facility] V[address]dulycn[address] [place], [place] [address]VyDr. Donis Mancini DRUG SCREEN RAPID (URINE)on 08-10-2022 AMP Negative Normal NEGATIVE [facility] Comment on above: Performed By: #### D RUGRPD ####[facility] [address] [address]Dr. Laceyjavi Mancini BAR Negative Normal NEGATIVE [facility] Comment on above: Performed By: #### D RUGRPD ####[facility] [address] [address]Dr. Donis Mancini BUP Negative Normal NEGATIVE [facility] Comment on above: Performed By: #### D RUGRPD ####[facility] [address] [place], [place] [address]Dr. Laceyjavi Mancini BZO Negative Normal NEGATIVE [facility] Comment on above: Performed By: #### D RUGRPD ####[facility] [address] [place], [place] [address]Dr. Laceyjavi Mancini ALEXA Negative Normal NEGATIVE [facility] Comment on above: Performed By: #### D RUGRPD ####[facility] [address] [place], [place] [address]Dr. Donis Mancini CUT-OFFS SEE BELOW Normal [facility] Comment on above: Result Comment: AMP (Amphetamine): 500ng/mL, BAR (Barbituates): 200 ng/mL, BZO (Benzodiazepines): 150 ng/mL, BUP (Buprenorphine): 10 ng/mL, ALEXA (Cocaine): 150 ng/mL, mAMP (Methamphetamine): 500 ng/mL, MTD (Methadone): 200 ng/mL, OPI (Opiates): 100 ng/mL, OXY (Oxycodone): 100 ng/mL, PCP (Phencyclidine): 25 ng/mL, PPX (Propoxyphene): 300 ng/mL, THC (Cannabinoids): 50 ng/mL, TCA (Trycyclic Antidepressants): 300 ng/mL Performed By: #### D RUGRPD ####[facility] [address] [place], [place] [address]Dr. Donis Mancini DRUG CUT HEADER DRUG CLASS TEST SYSTEM CUT-OFF CONCENTRATIONS ARE FOLLOWS: Normal [facility] Comment on above: Performed By: #### D RUGRPD ####[facility] [address] [place], [place] [id number]. Donis Mancini mAMP Negative Normal NEGATIVE [facility] Comment on above: Performed By: #### D RUGRPD ####[facility] [address] [address]Dr. Donis Mancini MTD Negative Normal NEGATIVE [facility] Comment on above: Performed By: #### D RUGRPD ####[facility] [address] [id number]. Donis Mancini OPI Negative Normal NEGATIVE [facility] Comment on above: Performed By: #### D RUGRPD ####[facility] [address] [place], [place] [address]Dr. Donis Mancini OXY Negative Normal NEGATIVE [facility] Comment on above: Performed By: #### D RUGRPD ####[facility] [address] [place], [place] [address]Dr. Donis Mancini PCP Negative Normal NEGATIVE [facility] Comment on above: Performed By: #### D RUGRPD ####[facility] [address] [place], [place] [address]Dr. Donis Mancini PPX Negative Normal NEGATIVE [facility] Comment on above: Performed By: #### D RUGRPD ####[facility] [address] [place], [place] [address]Dr. Donis Mancini TCA Negative Normal NEGATIVE [facility] Comment on above: Performed By: #### D RUGRPD ####[facility] R[address] [place], [place] [address]Dr. Donis Mancini THC Negative Normal NEGATIVE [facility] Comment on above: Performed By: #### D RUGRPD ####[facility] N[address] [place], [place] [address]Dr. Donis Mancini TYPE AND SCREENon 08-10-2022 TYPE AND SCREEN Negative Normal [facility] Comment on above: Performed By: #### T NS ####[facility] De[address] [place], [place] [address]Dr. Donis Mancini US PREG BIOPHY W NON [...] ESTEFANY BENNETT Date: 2022-08-10 07:18 Normal [facility] US PREG GROWTHon 08-10-2022 US PREG [...] ESTEFANY BENNETT Date: 2022-08-10 07:16 Normal [facility] CBC AUTO DIFFon 08-09-2022 BASO # 0.0 103/ul Normal 0.0-0.1 [facility] Comment on above: Performed By: #### C BC ####[facility] [address] [address]DrGene Macnini Basophils/100 WBC (Bld) 0.2 % Normal 0.2-2.0 [facility] Comment on above: Performed By: #### C BC ####[facility] [address] [address]Dr. Donis Mancini EO # 0.4 103/ul Normal 0.0-0.7 [facility] Comment on above: Performed By: #### C BC ####[facility] [address] [address]Dr. Donis Mancini Eosinophils/100 WBC (Bld) 2.8 % Normal 0.9-7.0 [facility] Comment on above: Performed By: #### C BC ####[facility] [address] [address]Dr. Donis Mancini Erythrocyte distribution width (RBC) [Ratio] 12.2 % Normal 11.0-15.0 [facility] Comment on above: Performed By: #### C BC ####[facility] [address] [place], [place] [address]Dr. Donis Mancini Hematocrit (Bld) [Volume fraction] 41.4 % Normal 36.0-48.0 [facility] Comment on above: Performed By: #### C BC ####[facility] Q[address]um[address] [place], [place] [address]Dr. Donis Mancini Hemoglobin (Bld) [Mass/Vol] 14.4 g/dL Normal 12.0-16.0 [facility] Comment on above: Performed By: #### C BC ####[facility] [address] [place], [place] [address]Dr. Donis Mancini IG # 0.06 10e3/ul Critically high 0.00-0.03 [facility] Comment on above: Performed By: #### C BC ####[facility] [address] [address]Dr. Donis Mancini IG % 0.5 % Normal 0.0-0.5 [facility] Comment on above: Performed By: #### C BC ####[facility] [address] [place], [place] [address]Dr. Donis Mancini LYMPH # 1.5 103/ul Normal 1.2-3.8 [facility] Comment on above: Performed By: #### C BC ####[facility] [address] [place], [place] [address]Dr. Donis Mancini Lymphocytes/100 WBC (Bld) 11.7 % Critically low 20.5-60.0 [facility] Comment on above: Performed By: #### C BC ####[facility] [address] [address]Dr. Donis Mancini MANUAL DIFF REQ NO Normal [facility] Comment on above: Performed By: #### C BC ####[facility] [address] [address]Dr. Donis Mancini MCH (RBC) [Entitic mass] 31.9 pg Normal 26.7-34.0 [facility] Comment on above: Performed By: #### C BC ####[facility] [address] [address]Dr. Donis Mancini MCHC (RBC) [Mass/Vol] 34.8 g/dL Normal 29.9-35.2 [facility] Comment on above: Performed By: #### C BC ####[facility] [address] [address]Dr. Donis Mancini MCV (RBC) [Entitic vol] 91.8 fL Normal 81.0-99.0 [facility] Comment on above: Performed By: #### C BC ####[facility] [address] [address]Dr. Donis Mancini MONO # 1.0 103/ul Critically high 0.3-0.8 [facility] Comment on above: Performed By: #### C BC ####[facility] [address] [address]Dr. Donis Mancini Monocytes/100 WBC (Bld) 7.5 % Normal 1.7-12.0 [facility] Comment on above: Performed By: #### C BC ####[facility] [address] [address]Dr. Donis Mancini NEUT # 10.0 103/ul Critically high 1.4-6.5 [facility] Comment on above: Performed By: #### C BC ####[facility] [address] [address]Dr. Donis Mancini Neutrophils/100 WBC (Bld) 77.3 % Critically high 43.0-75.0 [facility] Comment on above: Performed By: #### C BC ####[facility] [address] [address]Dr. Donis Mancini Platelet mean volume (Bld) [Entitic vol] 11.6 fL Normal 9.5-13.5 [facility] Comment on above: Performed By: #### C BC ####[facility] [address] [address]Dr. Donis Mancini PLT 184 103/ul Normal 150-450 [facility] Comment on above: Performed By: #### C BC ####[facility] [address] [address]Dr. Donis Mancini RBC 4.51 106/ul Normal 4.20-5.40 [facility] Comment on above: Performed By: #### C BC ####[facility] [address] [address]Dr. Donis Mancini WBC 12.9 103/ul Critically high 4.0-11.0 [facility] Comment on above: Performed By: #### C BC ####[facility] [address] [address]Dr. Donis Mancini LDHon 08-09-2022 LDH 167 U/L Normal 81-234 [facility] Comment on above: Performed By: #### C T/NGNA #### [facility] [address] [address] [address] Donis Mancini PROF 14(COMP METB)on 022 Albumin [Mass/Vol] 2.7 g/dL Critically low 3.4-5.0 [facility] Comment on above: Performed By: #### C T/NGNA #### [facility] [address] [address] [address] Donis Mancini Albumin/Globulin [Mass ratio] 0.6 {ratio} Normal [facility] Comment on above: Performed By: #### C T/NGNA #### [facility] [address] [address] [address] Donis Mancini ALP [Catalytic activity/Vol] 176 U/L Critically high 46-116 [facility] Comment on above: Performed By: #### C T/NGNA #### [facility] [address] [address] [address] Donis Mancini ALT [Catalytic activity/Vol] 20 U/L Normal 14-59 [facility] Comment on above: Performed By: #### C T/NGNA #### [facility] [address] [address] [address] Donis Mancini Anion gap [Moles/Vol] 12.9 mmol/L Normal [facility] Comment on above: Performed By: #### C T/NGNA #### [facility] [address] [address] [address] Donis Mancini AST [Catalytic activity/Vol] 20 U/L Normal 15-37 [facility] Comment on above: Performed By: #### C T/NGNA #### [facility] [address] [address] [address] Donis Mancini Bilirubin [Mass/Vol] 0.1 mg/dL Critically low 0.2-1.0 [facility] Comment on above: Performed By: #### C T/NGNA #### [facility] [address] [address] [address] Donis Mancini Calcium [Mass/Vol] 9.1 mg/dL Normal 8.5-10.1 [facility] Comment on above: Performed By: #### C T/NGNA #### [facility] [address] [address] [address] Donis Mancini Chloride [Moles/Vol] 104 mmol/L Normal 98-107 [facility] Comment on above: Performed By: #### C T/NGNA #### [facility] [address] [address] [address] Donis Mancini CO2 [Moles/Vol] 22.9 mmol/L Normal 21.0-32.0 [facility] Comment on above: Performed By: #### C T/NGNA #### [facility] [address] [address] [address] Donis Mancini Creatinine [Mass/Vol] 0.43 mg/dL Critically low 0.55-1.02 [facility] Comment on above: Performed By: #### C T/NGNA #### [facility] [address] [address] [address] Donis Mancini EGFR-AF FIJIAN >60 Normal >=60 [facility] Comment on above: Performed By: #### C T/NGNA #### [facility] [address] [address] [address] Donis Mancini EGFR-NON AF FIJIAN >60 Normal >=60 [facility] Comment on above: Performed By: #### C T/NGNA #### [facility] [address] [address] [address] Donis Mancini Globulin (S) [Mass/Vol] 4.2 g/dL Normal [facility] Comment on above: Performed By: #### C T/NGNA #### [facility] [address] [address] [address] Donis Mancini Glucose [Mass/Vol] 95 mg/dL Normal 74-106 [facility] Comment on above: Performed By: #### C T/NGNA #### [facility] [address] [address] [address] Donis Mancini Potassium [Moles/Vol] 3.8 mmol/L Normal 3.5-5.1 [facility] Comment on above: Performed By: #### C T/NGNA #### [facility] [address] [address] [address] Donis Mancini Protein [Mass/Vol] 6.9 g/dL Normal 6.4-8.2 [facility] Comment on above: Performed By: #### C T/NGNA #### [facility] [address] [address] [address] Donis Mancini Sodium [Moles/Vol] 136 mmol/L Normal 136-145 [facility] Comment on above: Performed By: #### C T/NGNA #### [facility] [address] [place] [address] Dr. Donis Mancini Urea nitrogen [Mass/Vol] 10.0 mg/dL Normal 7.0-18.0 [facility] Comment on above: Performed By: #### C T/NGNA #### [facility] [address] [place] [address] Dr. Donis Mancini Urea nitrogen/Creatinine [Mass ratio] 23.3 mg/mg Normal [facility] Comment on above: Performed By: #### C T/NGNA #### [facility] [address] [place] [address] Dr. Donis Mancini URIC ACID SERUMon 08-09-2022 Urate [Mass/Vol] 3.6 mg/dL Normal 2.6-6.0 [facility] Comment on above: Performed By: #### C T/NGNA #### [facility] [address] [place] [address] Dr. Donis Mancini CBC AUTO DIFFon 08-07-2022 BASO # 0.0 103/ul Normal 0.0-0.1 [facility] Comment on above: Performed By: #### U AMIC #### [facility] [address] [place] [address] Dr. Donis Mancini Basophils/100 WBC (Bld) 0.2 % Normal 0.2-2.0 [facility] Comment on above: Performed By: #### U AMIC #### [facility] [address] [place] [address] Dr. Donis Mancini EO # 0.2 103/ul Normal 0.0-0.7 [facility] Comment on above: Performed By: #### U AMIC #### [facility] [address] [place] [address] Dr. Donis Mancini Eosinophils/100 WBC (Bld) 1.8 % Normal 0.9-7.0 [facility] Comment on above: Performed By: #### U AMIC #### [facility] [address] [place] [address] Dr. Donis Mancini Erythrocyte distribution width (RBC) [Ratio] 12.3 % Normal 11.0-15.0 [facility] Comment on above: Performed By: #### U AMIC #### [facility] [address] [place] [address] Dr. Donis Mancini Hematocrit (Bld) [Volume fraction] 45.7 % Normal 36.0-48.0 [facility] Comment on above: Performed By: #### U AMIC #### [facility] [address] [place] [address] Dr. Donis Mancini Hemoglobin (Bld) [Mass/Vol] 16.0 g/dL Normal 12.0-16.0 [facility] Comment on above: Performed By: #### U AMIC #### [facility] [address] [place] [address] Dr. Donis Mancini IG # 0.07 10e3/ul Critically high 0.00-0.03 [facility] Comment on above: Performed By: #### U AMIC #### [facility] [address] [place] [address] Dr. Donis Mancini IG % 0.5 % Normal 0.0-0.5 [facility] Comment on above: Performed By: #### U AMIC #### [facility] [address] [place] [address] Dr. Donis Mancini LYMPH # 1.5 103/ul Normal 1.2-3.8 [facility] Comment on above: Performed By: #### U AMIC #### [facility] [address] [place] [address] Dr. Donis Mancini Lymphocytes/100 WBC (Bld) 11.2 % Critically low 20.5-60.0 [facility] Comment on above: Performed By: #### U AMIC #### [facility] [address] [place] [address] Dr. Donis Mancini MANUAL DIFF REQ NO Normal [facility] Comment on above: Performed By: #### U AMIC #### [facility] [address] [place] [address] Dr. Donis Mancini MCH (RBC) [Entitic mass] 32.0 pg Normal 26.7-34.0 [facility] Comment on above: Performed By: #### U AMIC #### [facility] [address] [address] [address] Donis Mancini MCHC (RBC) [Mass/Vol] 35.0 g/dL Normal 29.9-35.2 [facility] Comment on above: Performed By: #### U AMIC #### [facility] [address] [place] [address] Dr. Donis Mancini MCV (RBC) [Entitic vol] 91.4 fL Normal 81.0-99.0 [facility] Comment on above: Performed By: #### U AMIC #### [facility] [address] [place] [address] Dr. Donis Mancini MONO # 0.9 103/ul Critically high 0.3-0.8 [facility] Comment on above: Performed By: #### U AMIC #### [facility] [address] [place] [address] Dr. Donis Mancini Monocytes/100 WBC (Bld) 6.3 % Normal 1.7-12.0 [facility] Comment on above: Performed By: #### U AMIC #### [facility] [address] [place] [address] Dr. Donis Mancini NEUT # 10.9 103/ul Critically high 1.4-6.5 [facility] Comment on above: Performed By: #### U AMIC #### [facility] [address] [place] [address] Dr. Donis Mancini Neutrophils/100 WBC (Bld) 80.0 % Critically high 43.0-75.0 [facility] Comment on above: Performed By: #### U AMIC #### [facility] [address] [place] [address] Dr. Donis Mancini Platelet mean volume (Bld) [Entitic vol] 11.5 fL Normal 9.5-13.5 [facility] Comment on above: Performed By: #### U AMIC #### [facility] [address] [place] [address] Dr. Donis Mancini PLT 182 103/ul Normal 150-450 [facility] Comment on above: Performed By: #### U AMIC #### [facility] [address] [address] [address] Donis Mancini RBC 5.00 106/ul Normal 4.20-5.40 [facility] Comment on above: Performed By: #### U AMIC #### [facility] [address] [address] [address] Donis Mancini WBC 13.6 103/ul Critically high 4.0-11.0 [facility] Comment on above: Performed By: #### U AMIC #### [facility] [address] [address] [address] Donis Mancini LDHon 08-07-2022 LDH 171 U/L Normal 81-234 [facility] Comment on above: Performed By: #### C MP, URIC, LDH ####[facility] [address] [address]DrGene Mancini PROF 14(COMP METB)on 022 Albumin [Mass/Vol] 2.9 g/dL Critically low 3.4-5.0 [facility] Comment on above: Performed By: #### C MP, URIC, LDH ####[facility] [address] [address]DrGene Mancini Albumin/Globulin [Mass ratio] 0.6 {ratio} Normal [facility] Comment on above: Performed By: #### C MP, URIC, LDH ####[facility] [address] [address]DrGene Mancini ALP [Catalytic activity/Vol] 192 U/L Critically high 46-116 [facility] Comment on above: Performed By: #### C MP, URIC, LDH ####[facility] [address] [address]DrGene Mancini ALT [Catalytic activity/Vol] 23 U/L Normal 14-59 [facility] Comment on above: Performed By: #### C MP, URIC, LDH ####[facility] [address] [address]Dr. Donis Mancini Anion gap [Moles/Vol] 14.4 mmol/L Normal [facility] Comment on above: Performed By: #### C MP, URIC, LDH ####[facility] [address] [place], [place] [address]Dr. Donis Mancini AST [Catalytic activity/Vol] 23 U/L Normal 15-37 [facility] Comment on above: Performed By: #### C MP, URIC, LDH ####[facility] [address] [place], [place] [address]Dr. Donis Mancini Bilirubin [Mass/Vol] 0.2 mg/dL Normal 0.2-1.0 [facility] Comment on above: Performed By: #### C MP, URIC, LDH ####[facility] [address] [place], [place] [address]Dr. Donis Mancini Calcium [Mass/Vol] 9.4 mg/dL Normal 8.5-10.1 [facility] Comment on above: Performed By: #### C MP, URIC, LDH ####[facility] [address] [place], [place] [address]Dr. Donis Mancini Chloride [Moles/Vol] 104 mmol/L Normal 98-107 [facility] Comment on above: Performed By: #### C MP, URIC, LDH ####[facility] [address] [place], [place] [address]Dr. Donis Mancini CO2 [Moles/Vol] 21.7 mmol/L Normal 21.0-32.0 [facility] Comment on above: Performed By: #### C MP, URIC, LDH ####[facility] [address] [place], [place] [address]Dr. Donis Mancini Creatinine [Mass/Vol] 0.46 mg/dL Critically low 0.55-1.02 [facility] Comment on above: Performed By: #### C MP, URIC, LDH ####[facility] [address] [place], [place] [address]Dr. Donis Mancini EGFR-AF FIJIAN >60 Normal >=60 [facility] Comment on above: Performed By: #### C MP, URIC, LDH ####[facility] [address] [address]Dr. Donis Mancini EGFR-NON AF FIJIAN >60 Normal >=60 [facility] Comment on above: Performed By: #### C MP, URIC, LDH ####[facility] [address] [address]Dr. Donis Mancini Globulin (S) [Mass/Vol] 4.6 g/dL Normal [facility] Comment on above: Performed By: #### C MP, URIC, LDH ####[facility] [address] [address]Dr. Donis Mancini Glucose [Mass/Vol] 89 mg/dL Normal 74-106 [facility] Comment on above: Performed By: #### C MP, URIC, LDH ####[facility] [address] [place], [place] [address]Dr. Donis Mancini Potassium [Moles/Vol] 4.1 mmol/L Normal 3.5-5.1 [facility] Comment on above: Performed By: #### C MP, URIC, LDH ####[facility] [address] [place], [place] [address]Dr. Donis Mancini Protein [Mass/Vol] 7.5 g/dL Normal 6.4-8.2 [facility] Comment on above: Performed By: #### C MP, URIC, LDH ####[facility] [address] [address]Dr. Donis Mancini Sodium [Moles/Vol] 136 mmol/L Normal 136-145 [facility] Comment on above: Performed By: #### C MP, URIC, LDH ####[facility] [address] [place], [place] [address]Dr. Donis Mancini Urea nitrogen [Mass/Vol] 8.0 mg/dL Normal 7.0-18.0 [facility] Comment on above: Performed By: #### C MP, URIC, LDH ####[facility] [address] [place], [place] [address]Dr. Donis Mancini Urea nitrogen/Creatinine [Mass ratio] 17.4 mg/mg Normal [facility] Comment on above: Performed By: #### C MP, URIC, LDH ####[facility] [address] [address]Dr. Donis Mancini PROTIMEon 08-07-2022 INR Coag (PPP) [Relative time] {INR} Normal [facility] Comment on above: Performed By: #### U AMIC #### [facility] [address] [place] [address] Dr. Donis Mancini INR GUIDELINES SEE BELOW Normal [facility] Comment on above: Result Comment: NICCI RED INR: 2.0 - 3.0 CONDITIONS NOT LISTED BELOW 2.5 - 3.5 FOR PROSTHETIC HEART VALVE REPLACEMENT 2.5 - 3.5 RECURRENT THROMBOSIS Performed By: #### U AMIC #### [facility] [address] [place] [address] Dr. Donis Mancini PT Coag (PPP) [Time] 9.8 s Normal 9.0-11.6 [facility] Comment on above: Performed By: #### U AMIC #### [facility] [address] [place] [address] Dr. Donis Mancini PTTon 08-07-2022 aPTT Coag (Bld) [Time] 28.5 s Normal 22.3-36.2 Th [facility] Comment on above: Performed By: #### U AMIC #### [facility] [address] [place] [address] Dr. Donis Mancini UA (CLEAN/CATCH) TELECOMMUNICATION TOWER TECHNICIAN/MICRO I F IND.on 08-07-2022 Bilirubin Ql (U) Negative Normal NEGATIVE [facility] Comment on above: Performed By: #### U AMIC #### [facility] [address] [place] [address] Dr. Donis Mancini Clarity (U) CLEAR Normal CLEAR [facility] Comment on above: Performed By: #### U AMIC #### [facility] [address] [place] [address] Dr. Donis Mancini Color (U) LT. YELLOW Normal YELLOW [facility] Comment on above: Performed By: #### U AMIC #### [facility] [address] [address] [address] Donis Mancini Glucose Ql (U) Negative Normal NEGATIVE [facility] Comment on above: Performed By: #### U AMIC #### [facility] [address] [address] [address] Donis Mancini Hemoglobin Ql (U) Negative Normal NEGATIVE [facility] Comment on above: Performed By: #### U AMIC #### [facility] [address] [address] [address] Donis Mancini Ketones Ql (U) Negative Normal NEGATIVE [facility] Comment on above: Performed By: #### U AMIC #### [facility] [address] [address] [address] Donis Mancini LEUKOCYTES Negative Normal NEGATIVE [facility] Comment on above: Performed By: #### U AMIC #### [facility] [address] [address] [address] Donis Mancini Nitrite Ql (U) Negative Normal NEGATIVE [facility] Comment on above: Performed By: #### U AMIC #### [facility] [address] [address] [address] Donis Mancini pH (U) 7.0 [pH] Normal 5-9 [facility] Comment on above: Performed By: #### U AMIC #### [facility] [address] [address] [address] Donis Mancini SPEC GRAVITY <=1.005 Abnormal 1.005-<=1.02 5 [facility] Comment on above: Performed By: #### U AMIC #### [facility] [address] [address] [address] Donis Mancini UA PROTEIN Negative Normal NEGATIVE/ TRACE [facility] Comment on above: Performed By: #### U AMIC #### [facility] [address] [address] [address] Donis Mancini UR MICRO IND NOT INDICATED Normal [facility] Comment on above: Performed By: #### U AMIC #### [facility] [address] [place] [address] Dr. Donis Mancini Urobilinogen Qn (U) 0.2 {Sarah'U}/dL Normal 0.2 - 1. 0 [facility] Comment on above: Performed By: #### U AMIC #### [facility] [address] [place] [address] Dr. Donis Mancini URIC ACID SERUMon 08-07-2022 Urate [Mass/Vol] 3.8 mg/dL Normal 2.6-6.0 [facility] Comment on above: Performed By: #### C MP, URIC, LDH ####[facility] [address] [address]Dr. Donis Mancini URINE T PROTEIN CREAT RATIOo n 08-07-2022 UR TOTAL PROTEIN <6.0 Normal <=12.0 [facility] Comment on above: Performed By: #### C T/NGNA #### [facility] [address] [place] [address] Dr. Donis Mancini URINE CREAT 13.45 mg/dL Critically low 20.00-300.00 [facility] Comment on above: Performed By: #### C T/NGNA #### [facility] [address] [place] [address] Dr. Donis Mancini US PREG BIOPHY W [...] by: COCO STERN Date: 2022-08-01 08:31 Normal [facility] CHLAMYDIA/GONOCOCCUS INESSA (SW AB/URINE/PAPon 07-31-2022 Chlamydia trachomatis, INESSA Negative Normal Negative [facility] Comment on above: Performed By: #### C T/NGNA #### [facility] [address] [address] [address] Donis Mancini Neisseria gonorrhoeae, INESSA Negative Normal Negative [facility] Comment on above: Performed By: #### C T/NGNA #### [facility] [address] [address] [address] Donis Mancini VAGINITIS/VAGINOSIS DNA PROB Domenic 07-31-2022 Simeon species Negative Normal Negative [facility] Comment on above: Performed By: #### V AGINT ####[facility] [address] [address]Dr. Donis Mancini Gardnerella vaginalis Negative Normal Negative [facility] Comment on above: Performed By: #### V AGINT ####[facility] [address] [address]Dr. Donis Mancini Trichomonas vaginalis Negative Normal Negative [facility] Comment on above: Performed By: #### V AGINT ####[facility] [address] [place] [address]DrGene Mancini GROUP B STREP CULTUREon S. agalactiae Ag Ql (Unsp spec) Culture Observations: NEGATIVE FOR GROUP B STREPTOCOCCUS. Normal [facility] Comment on above: Performed By: #### G BSCX #### [facility] [address] [place] [address] Dr. Donis Mancini US PREG BIOPHY W [...] COCO STERN Date: 2022-07-25 09:41 Normal [facility] US PREG GROWTHon 07-11-2022 US PREG [...] ESTEFANY BENNETT Date: 2022-07-11 19:28 Normal [facility] Covid-19 PCR (CVDTB)on 06-26 SARS-CoV-2 (COVID-19) RNA INESSA+probe Ql (Unsp spec) Not detected Normal NOT DETECTED [facility] Comment on above: Result Comment: When [...] for this test is supported by the [employer] Human Service's declaration [...] used). Performed By: #### C T/JAYNA #### [facility] [address] [address] [address] Donis Mancini GTT 3 HR PREGon 06-03-2022 Glucose [Mass/Vol] 94 mg/dL Normal 74-106 [facility] Comment on above: Performed By: #### U AMIC #### [facility] [address] [address] [address] Donis Mancini Glucose [Mass/Vol] 147 mg/dL Normal [facility] Comment on above: Performed By: #### U AMIC #### [facility] [address] [address] [address] Donis Mancini Glucose [Mass/Vol] 159 mg/dL Normal [facility] Comment on above: Performed By: #### U AMIC #### [facility] [address] [address] [address] Donis Mancini Glucose [Mass/Vol] 151 mg/dL Normal [facility] Comment on above: Performed By: #### U AMIC #### [facility] [address] [address] [address] Donis Mancini GLUCOSE - 1HRon 05-21-2022 Glucose [Mass/Vol] 141 mg/dL Critically high 74-106 [facility] Comment on above: Performed By: #### U AMIC #### [facility] [address] [address] [address] Donis Mancini HEMOGRAM AND PLATELon 2021 Hematocrit (Bld) [Volume fraction] 39.1 % Normal 36.0-48.0 [facility] Comment on above: Performed By: #### U AMIC #### [facility] [address] [address] [address] Donis Mancini Hemoglobin (Bld) [Mass/Vol] 13.1 g/dL Normal 12.0-16.0 [facility] Comment on above: Performed By: #### U AMIC #### [facility] [address] [address] [address] Donis Mancini MCH (RBC) [Entitic mass] 32.3 pg Normal 26.7-34.0 [facility] Comment on above: Performed By: #### U AMIC #### [facility] [address] [address] [address] Donis Mancini MCHC (RBC) [Mass/Vol] 33.5 g/dL Normal 29.9-35.2 [facility] Comment on above: Performed By: #### U AMIC #### [facility] [address] [address] [address] Donis Mancini MCV (RBC) [Entitic vol] 96.5 fL Normal 81.0-99.0 [facility] Comment on above: Performed By: #### U AMIC #### [facility] [address] [address] [address] Donis Mancini PLT 220 103/ul Normal 150-450 [facility] Comment on above: Performed By: #### U AMIC #### [facility] [address] [address] [address] Donis Mancini RBC 4.05 106/ul Critically low 4.20-5.40 [facility] Comment on above: Performed By: #### U AMIC #### [facility] [address] [address] [address] Donis Mancini WBC 12.8 103/ul Critically high 4.0-11.0 [facility] Comment on above: Performed By: #### U AMIC #### [facility] [address] [address] [address] Donis Mancini US PREG BIOPHYSICAL NO [...] ESTEFANY BENNETT Date: 2022-05-11 06:25 Normal [facility] CULTURE URINEon 05-10-2022 CULTURE URINE Culture Observations: MODERATE GROWTH OF MIXED GENITAL RAMBO. NO POTENTIAL PATHOGENS SEEN. Normal [facility] Comment on above: Performed By: #### U RCX #### [facility] [address] [address] [address] Donis Mancini UA RANDOM W/MICROSCOPICon BACTERIA LARGE Abnormal NONE SEEN [facility] Comment on above: Performed By: #### U AMIC ####[facility] [address] [place] [address]Dr. Donis Mancini Bilirubin Ql (U) Negative Normal NEGATIVE [facility] Comment on above: Performed By: #### U AMIC ####[facility] [address] [place] [address]Dr. Donis Mancini CAST NONE SEEN Normal NONE SEEN [facility] Comment on above: Performed By: #### U AMIC ####[facility] [address] [place] [address]Dr. Donis Mancini Clarity (U) CLEAR Normal CLEAR [facility] Comment on above: Performed By: #### U AMIC ####[facility] [address] [place] [address]Dr. Donis Mancini Color (U) YELLOW Normal YELLOW [facility] Comment on above: Performed By: #### U AMIC ####[facility] [address] [place] [address]Dr. Donis Mancini Crystals LM Nom (Urine sed) NONE SEEN Normal NONE SEEN [facility] Comment on above: Performed By: #### U AMIC ####[facility] [address] [place] [address]Dr. Donis Mancini Epithelial cells LM Ql (Urine sed) MODERATE Abnormal NONE SEEN /RARE [facility] Comment on above: Performed By: #### U AMIC ####[facility] [address] [place] [address]Dr. Donis Mancini Glucose Ql (U) 250 mg/dl Abnormal NEGATIVE [facility] Comment on above: Performed By: #### U AMIC ####[facility] [address] [place] [address]Dr. Donis Mancini Hemoglobin Ql (U) TRACE-INTACT Abnormal NEGATIVE [facility] Comment on above: Performed By: #### U AMIC ####[facility] [address] [place], [place] [address]Dr. Donis Mancini Ketones Ql (U) Negative Normal NEGATIVE [facility] Comment on above: Performed By: #### U AMIC ####[facility] [address] [place], [place] [address]Dr. Donis Mancini LEUKOCYTES LARGE Abnormal NEGATIVE [facility] Comment on above: Performed By: #### U AMIC ####[facility] [address] [place], [place] [address]Dr. Donis Mancini MUCOUS NONE SEEN Normal NONE SEEN [facility] Comment on above: Performed By: #### U AMIC ####[facility] [address] [place], [place] [address]Dr. Donis Mancini Nitrite Ql (U) Negative Normal NEGATIVE [facility] Comment on above: Performed By: #### U AMIC ####[facility] [address] [place], [place] [address]Dr. Donis Mancini pH (U) 6.0 [pH] Normal 5-9 [facility] Comment on above: Performed By: #### U AMIC ####[facility] [address] [place], [place] [address]Dr. Donis Mancini RBC 2-5 Abnormal 0-2 [facility] Comment on above: Performed By: #### U AMIC ####[facility] [address] [place], [place] [address]Dr. Donis Mancini SPEC GRAVITY <=1.005 Abnormal 1.005-<=1.02 5 [facility] Comment on above: Performed By: #### U AMIC ####[facility] [address] [place], [place] [address]Dr. Donis Mancini UA PROTEIN Negative Normal NEGATIVE/ TRACE [facility] Comment on above: Performed By: #### U AMIC ####[facility] [address] [place], [place] [address]Dr. Donis Mancini Urobilinogen Qn (U) 0.2 {Sarah'U}/dL Normal 0.2 - 1. 0 [facility] Comment on above: Performed By: #### U AMIC ####[facility] [address] [place] [address]Dr. Donis Mancini WBC 10-20 Abnormal NONE SEEN [facility] Comment on above: Performed By: #### U AMIC ####[facility] [address] [place] [address]Dr. Donis Mancini CULTURE URINEon 04-27-2022 CULTURE URINE Culture Observations: LIGHT GROWTH OF MIXED GENITAL RAMBO. NO POTENTIAL PATHOGENS SEEN. Normal [facility] Comment on above: Performed By: #### U RCX ####[facility] [address] [place] [address]Dr. Donis Mancini UA (CLEAN/CATCH) TELECOMMUNICATION TOWER TECHNICIAN/MICRO I F IND.on 04-27-2022 Bilirubin Ql (U) Negative Normal NEGATIVE [facility] Comment on above: Performed By: #### U ACSIND ICRO ####[facility] [address] [place] [address]Dr. Donis Mancini Clarity (U) CLEAR Normal CLEAR [facility] Comment on above: Performed By: #### U ACSWENDY ICRO ####[facility] [address] [place] [address]Dr. Donis Mancini Color (U) LT. YELLOW Normal YELLOW [facility] Comment on above: Performed By: #### U ACSIND ICRO ####[facility] [address] [place], [place] [address]Dr. Donis Mancini Glucose Ql (U) Negative Normal NEGATIVE [facility] Comment on above: Performed By: #### U ACSWENDY ICRO ####[facility] [address] [place], [place] [address]Dr. Donis Mancini Hemoglobin Ql (U) Negative Normal NEGATIVE [facility] Comment on above: Performed By: #### U ACSIND UMICRO ####[facility] [address] [place], [place] [address]Dr. Donis Mancini Ketones Ql (U) Negative Normal NEGATIVE [facility] Comment on above: Performed By: #### U ACSWENDY UMICRO ####[facility] [address] [place] [address]Dr. Donis Mancini LEUKOCYTES SMALL Abnormal NEGATIVE [facility] Comment on above: Performed By: #### U ACSWENDY UMICRO ####[facility] [address] [place] [address]Dr. Donis Mancini Nitrite Ql (U) Negative Normal NEGATIVE [facility] Comment on above: Performed By: #### U ACSWENDY UMICRO ####[facility] [address] [place] [address]Dr. Donis Mancini pH (U) 7.0 [pH] Normal 5-9 [facility] Comment on above: Performed By: #### U NELSON UMICRO ####[facility] [address] [place] [address]Dr. Donis Mancini SPEC GRAVITY 1.015 Normal 1.005-<=1.02 5 [facility] Comment on above: Performed By: #### U NELSON UMICRO ####[facility] [address] [place], [place] [address]Dr. Donis Mancini UA PROTEIN Negative Normal NEGATIVE/ TRACE [facility] Comment on above: Performed By: #### U ACSWENDY UMICRO ####[facility] [address] [place] [address]Dr. Donis Mancini UR MICRO IND INDICATED Normal [facility] Comment on above: Performed By: #### U ACSWENDY UMICRO ####[facility] [address] [place] [address]Dr. Donis Mancini Urobilinogen Qn (U) 0.2 {Sarah'U}/dL Normal 0.2 - 1. 0 [facility] Comment on above: Performed By: #### U ACSWENDY UMICRO ####[facility] [address] [place] [address]Dr. Donis Mancini URINE MICROSCOPIC ONLYon BACTERIA MODERATE Abnormal NONE SEEN [facility] Comment on above: Performed By: #### U ACSWENDY, UMICRO ####[facility] [address] [place] [address]Dr. Donis Mancini Bacteria identified Cx Nom (U) INDICATED Normal [facility] Comment on above: Performed By: #### U ACSIND, UMICRO ####[facility] [address] [place] [address]Dr. Donis Mancini CAST NONE SEEN Normal NONE SEEN [facility] Comment on above: Performed By: #### U ACSWENDY, UMICRO ####[facility] [address] [place] [address]Dr. Donis Mancini Crystals LM Nom (Urine sed) NONE SEEN Normal NONE SEEN [facility] Comment on above: Performed By: #### U ACSWENDY, UMICRO ####[facility] [address] [place] [address]Dr. Donis Mancini Epithelial cells LM Ql (Urine sed) MODERATE Abnormal NONE SEEN /RARE [facility] Comment on above: Performed By: #### U ACSWENDY, UMICRO ####[facility] [address] [place] [address]Dr. Donis Mancini MUCOUS NONE SEEN Normal NONE SEEN [facility] Comment on above: Performed By: #### U ACSWENDY, UMICRO ####[facility] [address] [place] [address]Dr. Donis Mancini RBC NONE SEEN Abnormal 0-2 [facility] Comment on above: Performed By: #### U ACSWENDY, UMICRO ####[facility] [address] [place] [address]Dr. Donis Mancini WBC 2-5 Abnormal NONE SEEN [facility] Comment on above: Performed By: #### U ACSWENDY, UMICRO ####[facility] [address] [place] [address]Dr. Donis Mancini US KIDNEYSon 04-27-2022 US KIDNEYS [...] ANDREAS AN Date: 2022-04-27 17:48 Normal [facility] CULTURE URINEon 04-16-2022 CULTURE URINE Isolate [...] Trimethoprim/Sulfame thoxazole <=20 S F Normal [facility] Comment on above: Performed By: #### U RCX #### [facility] [address] [place] [address] Dr. Donis Mancini US PREG ANATOMY SINGLEon [...] ESTEFANY BENNETT Date: 2022-04-12 22:22 Normal [facility] UA RANDOM W/MICROSCOPICon BACTERIA SMALL Abnormal NONE SEEN [facility] Comment on above: Performed By: #### U AMIC #### [facility] [address] [place] [address] Dr. Donis Mancini Bilirubin Ql (U) Negative Normal NEGATIVE [facility] Comment on above: Performed By: #### U AMIC #### [facility] [address] [address] [address] Donis Mancini CAST NONE SEEN Normal NONE SEEN [facility] Comment on above: Performed By: #### U AMIC #### [facility] [address] [address] [address] Donis Mancini Clarity (U) CLEAR Normal CLEAR [facility] Comment on above: Performed By: #### U AMIC #### [facility] [address] [address] [address] Donis Mancini Color (U) LT. YELLOW Normal YELLOW [facility] Comment on above: Performed By: #### U AMIC #### [facility] [address] [address] [address] Donis Mancini Crystals LM Nom (Urine sed) NONE SEEN Normal NONE SEEN [facility] Comment on above: Performed By: #### U AMIC #### [facility] [address] [address] [address] Donis Mancini Epithelial cells LM Ql (Urine sed) FEW Abnormal NONE SEEN /RARE [facility] Comment on above: Performed By: #### U AMIC #### [facility] [address] [address] [address] Donis Mancini Glucose Ql (U) Negative Normal NEGATIVE [facility] Comment on above: Performed By: #### U AMIC #### [facility] [address] [place] [address] Dr. Donis Mancini Hemoglobin Ql (U) Negative Normal NEGATIVE [facility] Comment on above: Performed By: #### U AMIC #### [facility] [address] [address] [address] Donis Mancini Ketones Ql (U) Negative Normal NEGATIVE [facility] Comment on above: Performed By: #### U AMIC #### [facility] [address] [address] [address] Donis Mancini LEUKOCYTES LARGE Abnormal NEGATIVE [facility] Comment on above: Performed By: #### U AMIC #### [facility] [address] [address] [address] Donis Mancini MUCOUS NONE SEEN Normal NONE SEEN [facility] Comment on above: Performed By: #### U AMIC #### [facility] [address] [address] [address] Donis Mancini Nitrite Ql (U) Negative Normal NEGATIVE [facility] Comment on above: Performed By: #### U AMIC #### [facility] [address] [place] [address] Dr. Donis Mancini pH (U) 5.5 [pH] Normal 5-9 [facility] Comment on above: Performed By: #### U AMIC #### [facility] [address] [address] [address] Donis Mancini RBC 0-2 Normal 0-2 [facility] Comment on above: Performed By: #### U AMIC #### [facility] [address] [address] [address] Donis Mancini SPEC GRAVITY <=1.005 Abnormal 1.005-<=1.02 5 [facility] Comment on above: Performed By: #### U AMIC #### [facility] [address] [address] [address] Donis Mancini UA PROTEIN Negative Normal NEGATIVE/ TRACE [facility] Comment on above: Performed By: #### U AMIC #### [facility] [address] [address] [address] Donis Mancini Urobilinogen Qn (U) 0.2 {Sarah'U}/dL Normal 0.2 - 1. 0 [facility] Comment on above: Performed By: #### U AMIC #### [facility] [address] [address] [address] Donis Mancini WBC 5-10 Abnormal NONE SEEN [facility] Comment on above: Performed By: #### U AMIC #### [facility] [address] [address] [address] Donis Mancini HEP B SURFACE ANTIGEN SCREEN on 01-23-2022 HBsAg Screen Negative Normal Negative [facility] Comment on above: Performed By: #### U AMIC #### [facility] [address] [address] [address] Donis Mancini HEPATITIS C VIRUS AB W/ REFL EX QUANTon 01-23-2022 HCV AB 0.1 s/co ratio Normal 0.0-0.9 [facility] Comment on above: Performed By: #### H CVPCRR ####[facility] [address] [address]Dr. Donis Mancini Interpretation: Comment Normal [facility] Comment on above: Result Comment: Nega tive Not infected with HCV, unless recent infection is suspected or other evidence exists to indicate HCV infection. Performed By: #### H CVPCRR ####[facility] [address] [id number]. Donis Mancini HIV 1 AND 2 WITH REFLEXon HIV Screen 4th Generation wRfx Non-Reactive Normal Non Reactive [facility] Comment on above: Result Comment: HIV Negative HIV-1/HIV-2 antibodies and HIV-1 p24 antigen were NOT detected. There is no laboratory evidence of HIV infection. Performed By: #### H IV12 ####[facility] [address] [id number]. Donis Mancini RPR QUANTon 01-23-2022 Rapid Plasma Reagin, Quant Non-Reactive Normal NonRea<1:1 [facility] Comment on above: Result Comment: Ashley catalan Note: This test does not meet current guidelines for screening and diagnosis of syphilis. This test is intended for following treatment response in patients being treated for syphilis infection. To screen for syphilis infection, a reflex cascade that includes both RPR and a treponema-specific assay should be utilized, such as Treponema pallidum (Syphilis) Screening [place] (047855) or Rapid Plasma Reagin (RPR) Test With Reflex to Quantitative RPR and Confirmatory Treponema pallidum Antibodies (562021). Performed By: #### R PRQ ####[facility] [address] [address]Dr. Donis Mancini RUBELLA AB IGGon 01-23-2022 Rubella Antibodies, IgG 1.60 index Normal Immune >0.99 [facility] Comment on above: Result Comment: Non- immune <0.90 Equivocal 0.90 - 0.99 Immune >0.99 Performed By: #### U AMIC #### [facility] [address] [place] [address] Dr. Donis Mancini CBC AUTO DIFFon 01-22-2022 BASO # 0.1 103/ul Normal 0.0-0.1 [facility] Comment on above: Performed By: #### U AMIC #### [facility] [address] [place] [address] Dr. Donis Mancini Basophils/100 WBC (Bld) 0.5 % Normal 0.2-2.0 [facility] Comment on above: Performed By: #### U AMIC #### [facility] [address] [place] [address] Dr. Donis Mancini EO # 0.6 103/ul Normal 0.0-0.7 [facility] Comment on above: Performed By: #### U AMIC #### [facility] [address] [place] [address] Dr. Donis Mancini Eosinophils/100 WBC (Bld) 5.1 % Normal 0.9-7.0 [facility] Comment on above: Performed By: #### U AMIC #### [facility] [address] [place] [address] Dr. Donis Mancini Erythrocyte distribution width (RBC) [Ratio] 12.0 % Normal 11.0-15.0 [facility] Comment on above: Performed By: #### U AMIC #### [facility] [address] [place] [address] Dr. Donis Mancini Hematocrit (Bld) [Volume fraction] 45.8 % Normal 36.0-48.0 [facility] Comment on above: Performed By: #### U AMIC #### [facility] [address] [place] [address] Dr. Donis Mancini Hemoglobin (Bld) [Mass/Vol] 15.3 g/dL Normal 12.0-16.0 [facility] Comment on above: Performed By: #### U AMIC #### [facility] [address] [place] [address] Dr. Donis Mancini IG # 0.03 10e3/ul Normal 0.00-0.03 [facility] Comment on above: Performed By: #### U AMIC #### [facility] [address] [place] [address] Dr. Donis Mancini IG % 0.3 % Normal 0.0-0.5 [facility] Comment on above: Performed By: #### U AMIC #### [facility] [address] [place] [address] Dr. Donis Mancini LYMPH # 1.7 103/ul Normal 1.2-3.8 [facility] Comment on above: Performed By: #### U AMIC #### [facility] [address] [address] [address] Donis Mancini Lymphocytes/100 WBC (Bld) 15.9 % Critically low 20.5-60.0 [facility] Comment on above: Performed By: #### U AMIC #### [facility] [address] [address] [address] Donis Mancini MANUAL DIFF REQ NO Normal [facility] Comment on above: Performed By: #### U AMIC #### [facility] [address] [address] [address] Donis Mancini MCH (RBC) [Entitic mass] 31.5 pg Normal 26.7-34.0 [facility] Comment on above: Performed By: #### U AMIC #### [facility] [address] [place] [address] Dr. Donis Mancini MCHC (RBC) [Mass/Vol] 33.4 g/dL Normal 29.9-35.2 [facility] Comment on above: Performed By: #### U AMIC #### [facility] [address] [place] [address] Dr. Donis Mancini MCV (RBC) [Entitic vol] 94.2 fL Normal 81.0-99.0 [facility] Comment on above: Performed By: #### U AMIC #### [facility] [address] [place] [address] Dr. Donis Mancini MONO # 0.6 103/ul Normal 0.3-0.8 [facility] Comment on above: Performed By: #### U AMIC #### [facility] [address] [place] [address] Dr. Donis Mancini Monocytes/100 WBC (Bld) 5.8 % Normal 1.7-12.0 [facility] Comment on above: Performed By: #### U AMIC #### [facility] [address] [address] [address] Donis Mancini NEUT # 7.8 103/ul Critically high 1.4-6.5 [facility] Comment on above: Performed By: #### U AMIC #### [facility] [address] [address] [address] Donis Mancini Neutrophils/100 WBC (Bld) 72.4 % Normal 43.0-75.0 [facility] Comment on above: Performed By: #### U AMIC #### [facility] [address] [address] [address] Donis Mancini Platelet mean volume (Bld) [Entitic vol] 9.9 fL Normal 9.5-13.5 [facility] Comment on above: Performed By: #### U AMIC #### [facility] [address] [address] [address] Donis Mancini PLT 281 103/ul Normal 150-450 [facility] Comment on above: Performed By: #### U AMIC #### [facility] [address] [address] [address] Donis Mancini RBC 4.86 106/ul Normal 4.20-5.40 [facility] Comment on above: Performed By: #### U AMIC #### [facility] [address] [address] [address] Donis Mancini WBC 10.8 103/ul Normal 4.0-11.0 [facility] Comment on above: Performed By: #### U AMIC #### [facility] [id number] Donis Mancini CULTURE URINEon 01-22-2022 CULTURE URINE Culture Observations: LIGHT GROWTH OF MIXED GENITAL RAMBO. NO POTENTIAL PATHOGENS SEEN. Normal [facility] Comment on above: Performed By: #### U RCX #### [facility] [address] [address] [address] Donis Mancini GLYCOHEMOGLOBIN A1Con 2021 ADA RECOMMENDATION SEE BELOW Normal [facility] Comment on above: Result Comment: ADA RECOMMENDED LIMIT 4.0 - 6.0 ADA THERAPEUTIC TARGET < 7.0 ACTION SUGGESTED > 7.0 Performed By: #### A 1C ####[facility] [address] [address]Dr. Donis Mancini Glucose [Mass/Vol] 100 mg/dL Normal [facility] Comment on above: Performed By: #### A 1C ####[facility] [address] [id number] Mancini HbA1c (Bld) [Mass fraction] 5.1 % Normal 4.5-6.2 [facility] Comment on above: Performed By: #### A 1C ####[facility] [address] [address]Dr. Donis Mancini SEAN BOX TEST PT SEND OUTo n 01-22-2022 SENT TO REF LAB 01/22/2022 Normal [facility] Comment on above: Performed By: #### N BOX ####[facility] [address] [address]DrGene Mancini TYPE AND SCREENon 01-22-2022 TYPE AND SCREEN Negative Normal [facility] Comment on above: Performed By: #### T NS #### [facility] [address] [address] [address] Donis Mancini US PREG TVon 01-17-2022 [...] COCO STERN Date: 2022-01-17 09:34 Normal [facility] Provider Letteron 04-06-2021 Provider Letter April [...] this matter. Sincerely, [facility] [place] [address] Normal [facility] Ambulatory Clinical Summaryo n 03-10-2021 Ambulatory Clinical Summary {[id number]}CD:[id number] [facility] Ambulatory Clinical Summaryo 03-05-2021 Ambulatory Clinical Summary {[id number]}CD:[id number] [facility] Gynecology Phone Visit- Tele healthon 03-05-2021 Gynecology [...] only communication with the patient located at [address] [place] [address] [place] [id number], with no one else. If it is [...] Ordered: Telephone Est 5 to 10 minutes [id number] Follow-up With When Contact Information Joycelyn RENNER In [address] [place] [address]- Additional Instructions: Problem List/Past Medical History Ongoing Contraception management Visit for routine recorder gravity prospecting exam Historical Blood transfusion Lead poisoning Procedure/Surgical [...] Clinical Summaryo n 03-04-2021 Ambulatory Clinical Summary {[id number]}CD:[id number] Normal [facility] Coding Summary.on 12-18-2020 Coding Summary. CODING DATE: 12/18/2020 FINAL [facility] DSC STATUS: Home (Routine DC) PAYOR: Amador Pines ADMIT DX: REASON FOR VISIT DX: U07.1 [...] [facility] Phys[facility] Order[facility] 12-16-2020 Physician Order [id number] #[id number]:127 Normal [facility] Rapid COVID Antigen ([facility])on 12-16-2020 Rapid COV Int NEG Ctl Pass Normal [facility] Comment on above: Performed By: #### 2 [id number] #### [facility] [address] [place] [address] Rapid COV Int POS Ctl Pass Normal [facility] Comment on above: Performed By: #### 2 [id number] #### [facility] [address] [place] [address] SARS-CoV-2 (COVID-19) RNA INESSA+probe Ql (Unsp spec) Detected Abnormal Not Detected [facility] Comment on above: Result Comment: Left a message for callback. 12/16/2020 11:42:47 EDT Results faxed to infection control. The g4interactive System for Rapid Detection of SARS-CoV-2 is [...] or revoked sooner. Performed By: #### 2 [id number] #### [facility] [address] [place] [address] Employed in Healthcare Unknown Normal [facility] Comment on above: Performed By: #### 2 [id number] #### [facility] [address] [place] [address] First Test Unknown Normal [facility] Comment on above: Performed By: #### 2 [id number] #### [facility] [address] [place] [address] Hospitalized? NO Normal [facility] Comment on above: Performed By: #### 2 [id number] #### [facility] [address] [place] [address] ICU NO Normal [facility] Comment on above: Performed By: #### 2 [id number] #### [facility] [address] [place] [address] ? Unknown Normal [facility] Comment on above: Performed By: #### 2 [id number] #### [facility] [address] [id number] Resides in a [facility] Care Setting Unknown Normal [facility] Comment on above: Performed By: #### 2 [id number] #### [facility] [address] [place] [address] Symptomatic as defined by CDC YES Normal [facility] Comment on above: Performed By: #### 2 [id number] #### [facility] [address] [place] [address] Ambulatory Clinical Summaryo 11-25-2020 Ambulatory Clinical Summary {[id number]}CD:[id number] Normal [facility] Vital Signs Date Time Vital Sign Value Performing Clinician Facility 06-26-2025 09:32-0400 Body mass index (BMI) [Ratio] 32.06 kg/m2 Nimesh Aranda [employer]IDE Work Phone: [facility] 06-26-2025 09:32-0400 Body weight 82.1 kg Nimesh Aranda [employer] GUIDE Work Phone: [facility] 06-26-2025 09:32-0400 Diastolic blood pressure 84 mm[Hg] Nimesh Rosi [employer]ING GUIDE Work Phone: [facility] 06-26-2025 09:32-0400 Systolic blood pressure 138 mm[Hg] Nimesh Bradyerly [employer]ING GUIDE Work Phone: [facility] 06-19-2025 15:04-0400 Body mass index (BMI) [Ratio] 31.89 kg/m2 Jose Michael DO Work Phone: [facility] 06-19-2025 15:04-0400 Body weight 81.65 kg Jose Michael DO Work Phone: [facility] 06-19-2025 15:04-0400 Diastolic blood pressure 86 mm[Hg] Jose Michael DO Work Phone: [facility] 06-19-2025 15:04-0400 Systolic blood pressure 142 mm[Hg] Jose Michael DO Work Phone: [facility] 06-12-2025 15:22-0400 Body mass index (BMI) [Ratio] 31.96 kg/m2 Rossana BISWAS Work Phone: [facility] 06-12-2025 15:22-0400 Body weight 81.83 kg Rossana Ramos PA Work Phone: [facility] 06-12-2025 15:22-0400 Diastolic blood pressure 90 mm[Hg] Rossana Rachel PA Work Phone: [facility] 06-12-2025 15:22-0400 Systolic blood pressure 144 mm[Hg] Rossana Ramos PA Work Phone: [facility] 05-28-2025 10:48-0400 Body mass index (BMI) [Ratio] 32.06 kg/m2 Jose Michael DO Work Phone: [facility] 05-28-2025 10:48-0400 Body weight 82.1 kg Jose Michael DO Work Phone: [facility] 05-28-2025 10:48-0400 Diastolic blood pressure 80 mm[Hg] Jose Michael DO Work Phone: [facility] 05-28-2025 10:48-0400 Systolic blood pressure 136 mm[Hg] Jose Michael DO Work Phone: [facility] 05-22-2025 15:02-0400 Body mass index (BMI) [Ratio] 31.49 kg/m2 Jose Michael DO Work Phone: [facility] 05-22-2025 15:02-0400 Body weight 80.63 kg Jose Michael DO Work Phone: [facility] 05-22-2025 15:02-0400 Diastolic blood pressure 92 mm[Hg] Jose Michael DO Work Phone: [facility] 05-22-2025 15:02-0400 Systolic blood pressure 138 mm[Hg] Jose Michael DO Work Phone: [facility] 05-14-2025 14:59-0400 Body mass index (BMI) [Ratio] 31.35 kg/m2 Jose Michael DO Work Phone: [facility] 05-14-2025 14:59-0400 Body weight 80.29 kg Jose Michael DO Work Phone: [facility] 05-14-2025 14:59-0400 Diastolic blood pressure 90 mm[Hg] Jose Michael DO Work Phone: [facility] 05-14-2025 14:59-0400 Systolic blood pressure 140 mm[Hg] Jose Michael DO Work Phone: [facility] 05-13-2025 16:11-0400 Body weight 79.83 kg Marjorie Rico RN Work Phone: [facility] 04-30-2025 11:52-0400 Body mass index (BMI) [Ratio] 31 kg/m2 Rossana BISWAS Work Phone: [facility] 04-30-2025 11:52-0400 Body weight 79.38 kg Rossana Rachel PA Work Phone: [facility] 04-30-2025 11:52-0400 Diastolic blood pressure 94 mm[Hg] Rossana Rachel PA Work Phone: [facility] 04-30-2025 11:52-0400 Systolic blood pressure 140 mm[Hg] Rossana [employer] PA Work Phone: [facility] 04-11-2025 15:38-0400 Body mass index (BMI) [Ratio] 30.2 kg/m2 Rossana [employer] PA Work Phone: [facility] 04-11-2025 15:38-0400 Body weight 77.34 kg Rossana Rachel PA Work Phone: [facility] 04-11-2025 15:38-0400 Diastolic blood pressure 100 mm[Hg] Rossana [employer] PA Work Phone: [facility] 04-11-2025 15:38-0400 Systolic blood pressure 142 mm[Hg] Rossana Rachel PA Work Phone: [facility] 03-14-2025 11:36-0400 Body mass index (BMI) [Ratio] 29.23 kg/m2 Jose Michael DO Work Phone: [facility] 03-14-2025 11:36-0400 Body weight 74.84 kg Jose Michael DO Work Phone: [facility] 03-14-2025 11:36-0400 Diastolic blood pressure 76 mm[Hg] Jose Michael DO Work Phone: [facility] 03-14-2025 11:36-0400 Systolic blood pressure 112 mm[Hg] Jose Michael DO Work Phone: [facility] 02-20-2025 16:08-0400 Body mass index (BMI) [Ratio] 28.83 kg/m2 Rossana Rachel PA Work Phone: [facility] 02-20-2025 16:08-0400 Body weight 73.82 kg Rossana [employer] PA Work Phone: [facility] 02-20-2025 16:08-0400 Diastolic blood pressure 82 mm[Hg] Rossana Ramos PA Work Phone: [facility] 02-20-2025 16:08-0400 Systolic blood pressure 110 mm[Hg] Rossana Ramos PA Work Phone: [facility] 01-14-2025 15:42-0400 Body mass index (BMI) [Ratio] 27.3 kg/m2 Jose Michael DO Work Phone: [facility] 01-14-2025 15:42-0400 Body weight 69.91 kg Jose Michael DO Work Phone: [facility] 01-14-2025 15:42-0400 Diastolic blood pressure 70 mm[Hg] Jose Michael DO Work Phone: [facility] 01-14-2025 15:42-0400 Systolic blood pressure 120 mm[Hg] Jose Michael DO Work Phone: [facility] 08-20-2024 10:55-0500 Body mass index (BMI) [Ratio] 25.93 kg/m2 Rossana Ramos PA Work Phone: [facility] 08-20-2024 10:55-0500 Body weight 66.41 kg Rossana Ramos PA Work Phone: [facility] 08-20-2024 10:55-0500 Diastolic blood pressure 70 mm[Hg] Rossana Ramos PA Work Phone: [facility] 08-20-2024 10:55-0500 Systolic blood pressure 120 mm[Hg] Rossana Rachel PA Work Phone: [facility] 08-06-2024 09:38-0500 Body mass index (BMI) [Ratio] 25.47 kg/m2 Jose Michael DO Work Phone: [facility] 08-06-2024 09:38-0500 Body weight 65.23 kg Jose Michael DO Work Phone: [facility] 08-06-2024 09:38-0500 Diastolic blood pressure 70 mm[Hg] Jose Michael DO Work Phone: [facility] 08-06-2024 09:38-0500 Systolic blood pressure 120 mm[Hg] Jose Michael DO Work Phone: [facility] 06-29-2024 09:12-0400 Body mass index (BMI) [Ratio] 24.58 kg/m2 Nom Nurse [facility] 06-29-2024 09:12-0400 Body weight 62.94 kg [facility] Nurse [facility] 06-29-2024 09:12-0400 Diastolic blood pressure 72 mm[Hg] [facility] Nurse [facility] 06-29-2024 09:12-0400 Systolic blood pressure 122 mm[Hg] [facility] Nurse [facility] 12-26-2022 13:45-0400 Body height 160.02 cm Jennifer Betzaida Other [employer] Other 12-26-2022 13:45-0400 Body mass index (BMI) [Ratio] 27.45 kg/m2 Jennifer Dudleymond Other [employer] Other 12-26-2022 13:45-0400 Body temperature 97 [degF] Jennifer Dudleymond Other [employer] Other 12-26-2022 13:45-0400 Body weight 70.31 kg Jennifer Betzaida Other [employer] Other 12-26-2022 13:45-0400 Diastolic blood pressure 89 mm[Hg] Jennifer Betzaida Other [employer] Other 12-26-2022 13:45-0400 Respiratory rate 18 /min Jennifer Betzaida Other [employer] Other 12-26-2022 13:45-0400 SaO2% (BldA) [Mass fraction] 100 % Jennifer Huston Other [employer] Other 12-26-2022 13:45-0400 Systolic blood pressure 135 mm[Hg] Jennifer Huston Other [employer] Other Encounters Encounter Date Encounter Type Care Provider Facility Start: 06-29-2025 End: 06-29-2025 Clinisync Result Encounter Rossana BISWAS Work Phone: [facility] External Department Unsolicited Start: 06-29-2025 End: 06-29-2025 Clinisync Result Encounter Rossana BISWAS Work Phone: [facility] External Department Unsolicited Start: 06-26-2025 End: 06-26-2025 Bamboo flowsheet Nimesh Aranda [employer]ING GUIDE Work Phone: [facility] Start: 06-26-2025 End: 06-26-2025 Bamboo flowsheet Nimesh Aranda [employer]ING GUIDE Work Phone: [facility] Start: 06-26-2025 End: 06-26-2025 flow sheet Nimesh Rosi [employer]ING GUIDE Work Phone: [facility] Comment on above: Third trimester preg alysa ([facility]); 36 weeks gestation of ([facility]); Diet controlled gestational diabetes mellitus (GDM), antepartum ([facility]); induced hypertension, antepartum ([facility]) Start: 06-26-2025 End: 06-26-2025 ambulatory NIMESH BLANCHARDLY Not Available Start: 06-24-2025 End: 06-25-2025 ambulatory [facility] Start: 06-22-2025 End: 06-22-2025 Clinisync Result Encounter Rossana BISWAS Work Phone: [facility] External Department Unsolicited Start: 06-22-2025 End: 06-22-2025 Clinisync Result Encounter Rossana BISWAS Work Phone: [facility] External Department Unsolicited Start: 06-20-2025 End: 06-20-2025 Orders Only Marii Yoo RN Maternal- Medic ine at [facility] Comment on above: Poor growth af fecting management of mother in third trimester, single or unspecified fetus (Primary Dx) Start: 06-19-2025 End: 06-19-2025 flow sheet Jose Michael DO Work Phone: [facility] Comment on above: Third trimester preg alysa ([facility]); 35 weeks gestation of ([facility]); Diet controlled gestational diabetes mellitus (GDM), antepartum ([facility]); induced hypertension, antepartum ([facility]) Start: 06-19-2025 End: 06-19-2025 ambulatory JOSE MICHAEL Not Available Start: 06-18-2025 End: 06-18-2025 [facility] Start: 06-15-2025 End: 06-15-2025 Clinisync Result Encounter Rossana BISWAS Work Phone: [facility] External Department Unsolicited Start: 06-15-2025 End: 06-15-2025 Clinisync Result Encounter Rossana BISWAS Work Phone: [facility] External Department Unsolicited Start: 06-12-2025 End: 06-12-2025 ambulatory ROSSANA RAMOS Not Available Start: 06-12-2025 End: 06-12-2025 flow sheet Rossana BISWAS Work Phone: [facility]JUN PANG Comment on above: Third trimester preg alysa ([facility]); 34 weeks gestation of ([facility]) Start: 06-12-2025 End: 06-12-2025 Bamboo flowsheet Rossana BISWAS Work Phone: ARJUN PANG Start: 06-12-2025 End: 06-12-2025 Bamboo flowsheet Rossana BISWAS Work Phone: [facility] Start: 06-11-2025 End: 06-11-2025 ambulatory JOSE R MICHAEL [facility] Start: 06-08-2025 End: 06-08-2025 Clinisync Result Encounter Rossana BISWAS Work Phone: [facility] External Department Unsolicited Start: 06-08-2025 End: 06-08-2025 Clinisync Result Encounter Rossana BISWAS Work Phone: [facility] External Department Unsolicited Start: 06-05-2025 End: 06-05-2025 Telephone encounter Xenia London RD Work Phone: [facility] Medicine at [facility] Start: 06-04-2025 End: 06-04-2025 Office consultation new/estab patient 60 min Manas Martin MD Work Phone: [facility] Medicine at [facility] Comment on above: Poor growth af fecting management of mother in third trimester, single or unspecified fetus (Primary Dx) Start: 06-04-2025 End: 06-04-2025 Orders Only Marii Yoo RN Maternal- Medic ine at [facility] Comment on above: Poor growth af fecting [...] abstracting Scanning Provider External [facility] Start: 05-28-2025 End: 05-28-2025 Bamboo flowsheet Jose Michael DO Work Phone: [facility] Start: 05-28-2025 End: 09-02-2025 Bamboo flowsheet Jose Michael DO Work Phone: [facility] Start: 05-28-2025 End: 05-28-2025 Telephone encounter Chante TEJEDA Work Phone: [facility] Start: 05-28-2025 End: 05-28-2025 ambulatory JOSE MICHAEL Not Available Start: 05-28-2025 End: 05-28-2025 flow sheet Jose Michael DO Work Phone: [facility] Comment on above: Third trimester preg alysa ([facility]); 32 weeks gestation of ([facility]); Gestational diabetes mellitus (GDM), antepartum, gestational diabetes method of control unspecified ([facility]); induced hypertension, antepartum ([facility]) Start: 05-25-2025 End: 05-25-2025 Clinisync Result Encounter Rossana BISWAS Work Phone: [facility] External Department Unsolicited Start: 05-25-2025 End: 05-25-2025 Clinisync Result Encounter Rossana BISWAS Work Phone: [facility] External Department Unsolicited Start: 05-22-2025 End: 05-22-2025 ambulatory JSOE MICHAEL Not Available Start: 05-22-2025 End: 05-22-2025 flow sheet Jose Michael DO Work Phone: [facility] Comment on above: Third trimester preg alysa ([facility]); 31 weeks gestation of ([facility]) Start: 05-22-2025 End: 05-22-2025 Bamboo flowsheet Jose Michael DO Work Phone: [facility] Start: 05-22-2025 End: 05-22-2025 Bamboo flowsheet Jose Michael DO Work Phone: [facility] Start: 05-21-2025 End: 05-21-2025 Telephone encounter Chante Micha LD Work Phone: [facility]- Medicine [facility] Start: 05-20-2025 End: 05-20-2025 Clinisync [...] Comment on above: Third trimester preg alysa ([facility]); 30 weeks gestation of ([facility]); induced hypertension, antepartum ([facility]) Start: 05-14-2025 End: 05-14-2025 Bamboo flowsheet Jose Michael DO Work Phone: [facility] Start: 05-14-2025 End: 05-14-2025 Bamboo flowsheet Jose Michael DO Work Phone: [facility] Start: 05-13-2025 End: 05-13-2025 ambulatory Marjorie Rico RN Work Phone: [facility]- Medicine at [facility] Comment on above: Gestational diabetes mellitus (GDM) in third trimester, gestational diabetes method of control unspecified Start: 05-11-2025 End: 05-11-2025 Clinisync Result Encounter Rossana BISWAS Work Phone: [facility] External Department Unsolicited Start: 05-11-2025 End: 05-11-2025 Clinisync Result Encounter Rossana BISWAS Work Phone: [facility] External Department Unsolicited Start: 05-10-2025 End: 05-10-2025 Chart abstracting Scanning Provider External [facility] Start: 05-06-2025 End: 05-06-2025 Clinisync Result Encounter Rossana BISWAS Work Phone: [facility] External Department Unsolicited Start: 05-06-2025 End: 05-06-2025 Clinisync Result Encounter Rossana BISWAS Work Phone: [facility] External Department Unsolicited Start: 05-04-2025 End: 05-04-2025 Clinisync Result Encounter Rossana BISWAS Work Phone: [facility] External Department Unsolicited Start: 05-04-2025 End: 05-04-2025 Clinisync Result Encounter Rossana BISAWS Work Phone: [facility] External Department Unsolicited Start: [...] flow sheet Rossana BISWAS Work Phone: [facility] Comment on above: BP check; -induced hypertension in third trimester ([facility]); Gestational diabetes mellitus (GDM) in third trimester, gestational diabetes method of control unspecified ([facility]) Start: 04-27-2025 End: 04-27-2025 Clinisync Result Encounter Rossana BISWAS Work Phone: [facility] External Department Unsolicited Start: 04-27-2025 End: 04-27-2025 Clinisync Result Encounter Rossana BISWAS Work Phone: [facility] External Department Unsolicited Start: 04-25-2025 End: 04-25-2025 flow sheet Rossana BISWAS Work Phone: [facility] Comment on above: Second trimester pre gnancy ([facility]); 27 weeks gestation of ([facility]); induced hypertension, antepartum ([facility]) Start: 04-25-2025 End: 04-25-2025 ambulatory ROSSANA SCOTTEY [...] above: Second trimester pre gnancy ([facility]); 25 weeks gestation of ([facility]); Diabetes mellitus screening; Elevated BP without [...] flow sheet Jose Michael DO Work Phone: [facility] Comment on above: Second trimester pre gnancy ([facility]); 21 weeks gestation of ([facility]) Start: 03-08-2025 End: 03-08-2025 Clinisync Result Encounter Jose Michael DO Work Phone: [facility] External Department Unsolicited Start: 03-08-2025 End: 03-08-2025 Clinisync Result Encounter Jose Michael DO Work Phone: [facility] External Department Unsolicited Start: 02-20-2025 End: 02-20-2025 Patient encounter procedure Rossana BISWAS Work Phone: [facility] Start: 02-20-2025 End: 02-20-2025 flow sheet Rossana BISWAS Work Phone: [facility] Comment on above: Screening, [...] to original px Rossana BISWAS Work Phone: [facility] Comment on above: Postoperative [...] 08-10-2024 End: 08-10-2024 ambulatory PHYSICIAN NO [facility] Work Phone: Start: 08-10-2024 End: 08-10-2024 Departed Referred PHYSICIAN NO [facility] Start: 08-06-2024 End: 08-06-2024 Bamboo flowsheet [...] 12-26-2022 End: 12-26-2022 ambulatory Jennifer Huston Other [employer] Other Start: 12-26-2022 End: 12-26-2022 Patient encounter procedure CYCLE TOURING GUIDE-C Jennifer Huston Work Phone: [facility] [...] DOCTOR ATWOOD Facility:[facility]1 Start: 05-03-[address] JOES RODRIGUEZ . Facili ty:[facility]1 Start: 04-27-2022 End: 04-27-[address] JOSE RODRIGUEZ . Facility:[facility] Start: 04-12-2022 End: 04-12-[address] JOSE RODRIGUEZ . Facility:[facility] Start: 04-12-2022 End: 04-13-[address] JOSE RODRIGUEZ . Facility:[facility] Start: 03-26-2022 End: 03-27-[address] JOSE RODIRGUEZ . Facility:[facility] Start: 01-22-2022 End: 01-23-2022 ambulatory [...] 05-18-2025 US OB BPP W NON-STRESS Rossana BISWSA Work Phone: Start: 05-18-2025 ALL CBC WITH [...] Start: 12-26-2022 Plain X-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 hand CYCLE TOURING GUIDE-C Jennifer Huston Work Phone: Start: 11-02-2022 Cytp [...] neoplasm of cervix Pap Smear [facility] Responsys Start: 06-20-2026 End: 06-20-2026 US MFM with or without consult US MFM with or without consult Imaging Routine Poor growth affecting management of mother in third trimester, single or unspecified fetus Expected: 06/20/2026 (Approximate), Expires: 06/20/2026 [employer] Work Phone: Comment on above: Expected: 06/20/2026 [...] 9:40 AM EDT Routine ARJUN PANG [address] [place] [address] Nimesh Aranda, VLAD [address] [place] [place] [address] ARJUN PANG Start: 07-02-2025 End: 07-02-2025 Patient encounter procedure 07/02/2025 3:30 PM EDT Appointment [facility] [address] [place] [address] [facility] Start: 06-26-2025 End: 06-26-2026 CULTURE, GROUP B STREP WITH SUSCEPTIBLITY CULTURE, GROUP B STREP WITH SUSCEPTIBLITY Lab Routine Third trimester ([facility]) Expected: 06/26/2025, Expires: 06/26/2026 [facility] Work Phone: Comment on above: Expected: 06/26/2025 , Expires: 06/26/2026 Start: 06-26-2025 End: 06-26-2025 Patient encounter procedure ARJUN PANG Comment on above: Arrived Start: 06-24-2025 End: 06-24-2025 Patient encounter procedure 06/24/2025 2:15 PM EDT Appointment [facility] [address] [place] [address] [address] [place] [address] [facility] Start: 06-19-2025 End: 06-19-2025 Patient encounter procedure 06/19/2025 2:30 PM EDT Routine [facility] [address] [place] [address] Jose Rodriguez, [address] [place] [address] ARJ[facility] [place] [facility] Start: 06-18-2025 End: 06-18-2025 Patient encounter procedure 06/18/2025 3:30 PM EDT Appointment [facility] [address] [place] [phone] [facility] Start: 06-12-2025 End: 06-12-2025 Patient encounter procedure 06/12/2025 3:00 PM EDT Routine [facility]UN PANG [address] [facility] [address] Rossana Ramos PA [address] [place] [address] ARJUN PANG Start: 06-11-2025 End: 06-11-2025 Patient encounter procedure 06/11/2025 8:00 AM EDT Appointment [facility] [address] [place] [phone] [facility] Start: 06-04-2025 End: 06-04-2025 Patient encounter procedure 06/04/2025 1:00 PM EDT Appointment [facility] [address] [facility] [address] Jose Rodriguez R, DO [address] [place] [address] [facility] - [facility] Start: 06-04-2025 Subsequent hospital visit by physician 06/04/2025 1:00 PM EDT Hospital Encounter [facility] [address] [place] [address] Jose Rodriguez R, DO [address] [place] [address] [facility] Start: 05-28-2025 End: 05-28-2025 Patient encounter procedure 05/28/2025 10:30 AM EDT Routine [facility] [address] [place] [phone] Jose Rodriguez, DO [address] [place] [address] [facility] Start: 05-27-2025 Influenza vaccination N [facility] Start: 05-22-2025 End: 05-22-2025 Patient encounter procedure 05/22/2025 2:40 PM EDT Routine [facility] [address] [place] [phone] Jose Rodriguez, DO [address] [place] [address] [facility] Start: 05-14-2025 End: 05-14-2025 Patient encounter procedure 05/14/2025 2:40 PM EDT Routine [facility] [address] [place] [phone] Jose Rodriguez, DO [address] [place] [address] [facility] Start: 05-14-2025 End: 05-14-2026 Alanine aminotransferase [Enzymatic activity/volume] in Serum or Plasma ALT Lab Routine induced hypertension, antepartum ([facility]) Expected: 05/14/2025 (Approximate), Expires: 05/14/2026 [facility] Comment on above: Expected: 05/14/2025 (Approximate), Expires: 05/14/2026 Start: 05-14-2025 End: 05-14-2026 Aspartate aminotransferase [Enzymatic activity/volume] in Serum or Plasma AST Lab Routine induced hypertension, antepartum ([facility]) Expected: 05/14/2025 (Approximate), Expires: 05/14/2026 [facility] Comment on above: Expected: 05/14/2025 (Approximate), Expires: 05/14/2026 Start: 05-14-2025 End: 05-14-2026 CBC W Auto Differential panel - Blood CBC and differential Lab Routine induced hypertension, antepartum ([facility]) Expected: 05/14/2025 (Approximate), Expires: 05/14/2026 [facility] Comment on above: Expected: 05/14/2025 (Approximate), Expires: 05/14/2026 Start: 05-14-2025 End: 05-14-2026 Creatinine [Mass/volume] in Serum or Plasma Creatinine Lab Routine induced hypertension, antepartum ([facility]) Expected: 05/14/2025 (Approximate), Expires: 05/14/2026 [facility] Work Phone: Comment on above: Expected: 05/14/2025 (Approximate), Expires: 05/14/2026 Start: 05-14-2025 End: 05-14-2026 Lactate dehydrogenase [Enzymatic activity/volume] in Serum or Plasma by Lactate to pyruvate reaction Lactate dehydrogenase Lab Routine induced hypertension, antepartum ([facility]) Expected: 05/14/2025, Expires: 05/14/2026 [facility] Comment on above: Expected: 05/14/2025 , Expires: 05/14/2026 Start: 05-14-2025 End: 05-14-2026 Protein, urine, 24 hour Protein, urine, 24 hour Lab Routine induced hypertension, antepartum ([facility]) Expected: 05/14/2025 (Approximate), Expires: 05/14/2026 [facility] Comment on above: Expected: 05/14/2025 (Approximate), Expires: 05/14/2026 Start: 05-14-2025 End: 05-14-2026 Pt and ptt Pt and ptt Lab Routine induced hypertension, antepartum ([facility]) Expected: 05/14/2025, Expires: 05/14/2026 [facility] Comment on above: Expected: 05/14/2025 , Expires: 05/14/2026 Start: 05-14-2025 End: 05-14-2026 Urate [Mass/volume] in Serum or Plasma Uric acid Lab Routine induced hypertension, antepartum ([facility]) Expected: 05/14/2025 (Approximate), Expires: 05/14/2026 [facility] Comment on above: Expected: 05/14/2025 (Approximate), Expires: 05/14/2026 Start: 05-14-2025 End: 05-14-2026 Urea nitrogen [Mass/volume] in Serum or Plasma BUN Lab Routine induced hypertension, antepartum ([facility]) Expected: 05/14/2025, Expires: 05/14/2026 [facility] Comment on above: Expected: 05/14/2025 , Expires: 05/14/2026 Start: 05-13-2025 End: 05-13-2025 ambulatory 05/13/2025 1:30 PM EDT Support Visit [facility] at [facility] [address] [place] [address] Marjorie Rico RN [address] [place] [address] Xenia London, ALEC [address], [address] [place] [address] [facility] Start: 04-30-2025 End: 10-31-2025 US [...] control unspecified ([facility]) Expected: 04/30/2025, Expires: 08/30/2025 [facility] Comment on above: Expected: 04/30/2025 , Expires: 08/30/2025 Start: 04-30-2025 End: 04-30-2025 Patient encounter procedure 04/30/2025 10:50 AM EDT Routine ARJUN PANG [address] [place] [phone] Rossana Ramos PA [address] [place] [address] ARJUN PANG Start: 04-25-2025 End: 04-25-2025 Patient [...] ([facility]) Expected: 04/25/2025 (Approximate), Expires: 04/25/2026 [facility] Comment on above: Expected: 04/25/2025 (Approximate), Expires: 04/25/2026 Start: 04-25-2025 End: 04-25-2026 Creatinine [Mass/volume] in Serum or Plasma Creatinine Lab Routine induced hypertension, antepartum ([facility]) Expected: 04/25/2025 (Approximate), Expires: 04/25/2026 [facility] Work Phone: Comment on above: Expected: 04/25/2025 (Approximate), Expires: 04/25/2026 Start: 04-25-2025 End: 04-25-2026 Lactate dehydrogenase [Enzymatic activity/volume] in Serum or Plasma by Lactate to pyruvate reaction Lactate dehydrogenase Lab Routine induced hypertension, antepartum ([facility]) Expected: 04/25/2025, Expires: 04/25/2026 [facility] Comment on above: Expected: 04/25/2025 , Expires: 04/25/2026 Start: 04-25-2025 End: 04-25-2026 Protein, urine, 24 hour Protein, urine, 24 hour Lab Routine induced hypertension, antepartum ([facility]) Expected: 04/25/2025 (Approximate), Expires: 04/25/2026 [facility] Comment on above: Expected: 04/25/2025 (Approximate), Expires: 04/25/2026 Start: 04-25-2025 End: 04-25-2026 Pt and ptt Pt and ptt Lab Routine induced hypertension, antepartum ([facility]) Expected: 04/25/2025, Expires: 04/25/2026 [facility] Comment on above: Expected: 04/25/2025 , Expires: 04/25/2026 Start: 04-25-2025 End: 04-25-2026 Urate [Mass/volume] in Serum or Plasma Uric acid Lab Routine induced hypertension, antepartum ([facility]) Expected: 04/25/2025 (Approximate), Expires: 04/25/2026 [facility] Comment on above: Expected: 04/25/2025 (Approximate), Expires: 04/25/2026 Start: 04-25-2025 End: 04-25-2026 Urea nitrogen [Mass/volume] in Serum or Plasma BUN Lab Routine induced hypertension, antepartum ([facility]) Expected: 04/25/2025, Expires: 04/25/2026 [facility] Comment on above: Expected: 04/25/2025 , Expires: 04/25/2026 Start: 04-11-2025 End: 04-11-2025 Patient encounter procedure 04/11/2025 3:30 PM EDT Routine [facility] [address] [facility] [address] Rossana Ramos PA [address] [place] [address] [facility] Start: 04-11-2025 End: 04-11-2026 CBC panel - Blood by Automated count CBC Lab Routine Diabetes mellitus screening Expected: 04/11/2025 (Approximate), Expires: 04/11/2026 [facility] Work Phone: Comment on above: Expected: 04/11/2025 (Approximate), Expires: 04/11/2026 Start: 04-11-2025 End: 04-11-2026 Measurement of glucose 1 hour after glucose challenge for glucose tolerance test Glucose tolerance, 1 hour Lab Routine Diabetes mellitus screening Expected: 04/11/2025 (Approximate), Expires: 04/11/2026 [facility] Comment on above: Expected: 04/11/2025 (Approximate), Expires: 04/11/2026 Start: 03-14-2025 End: 03-14-2025 Patient encounter procedure 03/14/2025 10:50 AM EDT Routine [facility] [address] [facility] [place] [address] Jose Rodriguez DO [address] [place], [place] [phone] [facility] Start: 02-20-2025 End: 02-20-2025 [...] Initial [facility] [address] [place] [phone] [facility] Start: 12-14-2024 End: 12-14-2024 Professional / ancillary services management 12/14/2024 8:30 AM EDT Ancillary Procedure [facility] [address] [place] [phone] [facility] Start: 08-20-2024 End: 08-20-2024 Patient encounter procedure 08/20/2024 10:20 AM EST Office Visit [facility] [address] [place] [address] Rossana Ramos PA [address] [place] [address] [facility] Start: 08-06-2024 End: 08-06-2024 Patient encounter procedure 08/06/2024 9:10 AM EST Routine [facility] [address] [place] [address] Jose Rodriguez, DO [address] [place] [address] [facility] Start: 06-29-2024 End: 06-29-2025 ABO/Rh ABO/Rh Lab Routine Missed menses , unspecified gestational age Expected: 06/29/2024 (Approximate), Expires: 06/29/2025 [facility] Comment on above: Expected: 06/29/2024 (Approximate), Expires: 06/29/2025 Start: 06-29-2024 End: 06-29-2025 Blood type and Indirect antibody screen panel - Blood Type and screen Lab Routine Missed menses , unspecified gestational age Expected: 06/29/2024 (Approximate), Expires: 06/29/2025 [facility] Work Phone: Comment on above: Expected: 06/29/2024 (Approximate), Expires: 06/29/2025 Start: 06-29-2024 End: 06-29-2025 Drugs of abuse panel - Urine by Screen method Rapid drug screen, urine Lab Routine , unspecified gestational age Encounter for supervision of normal first in first trimester Expected: 06/29/2024 (Approximate), Expires: 06/29/2025 [facility] Comment on above: Expected: 06/29/2024 (Approximate), Expires: 06/29/2025 Start: 06-29-2024 End: 06-29-2025 US Pelvis transvaginal US OB transvaginal Imaging Routine Missed menses Expected: 06/29/2024 (Approximate), Expires: 06/29/2025 [facility] Comment on above: Expected: 06/29/2024 (Approximate), Expires: 06/29/2025 Start: 05-27-2024 Influenza vaccination Influenza Vacc ine (#1) [facility] Start: 05-01-2024 DTaP,Tdap and Td Vac cines (7 - Td or Tdap) DTaP,Tdap and Td Vaccines (7 - Td or Tdap) [facility] Start: 2020 DTaP,Tdap and Td Vac cines (1 - Tdap) DTaP,Tdap and Td Vaccines (1 - Tdap) [facility] Start: 2019 Adult BMI Screening Adult BMI Screen ing [facility] Start: 2013 Depression Screening Depression Scre ening [facility] Start: 2013 Tobacco Screening Tobacco Screening [facility] Start: 2001 Screening for Chlamy jd trachomatis Chlamydia Screening [facility] Bacteria identified in Urine by Culture Urine culture Microbiology Routine Missed menses Ordered: 06/29/2024 [facility] Comment on above: Ordered: 06/29/2024 Bacteria identified in Urine by Culture Urine culture Microbiology Routine Urinary frequency Ordered: 02/20/2025 [facility] Comment on above: Ordered: 02/20/2025 CBC W Auto Different ial panel - Blood CBC and differential Lab Routine Missed menses , unspecified gestational age Ordered: 06/29/2024 [facility] Comment on above: Ordered: 06/29/2024 CHLAMYDIA TRACHOMATI S (GENITO/STI) CHLAMYDIA TRACHOMATIS (GENITO/STI) Lab Routine STD exposure Ordered: 02/20/2025 [facility] Comment on above: Ordered: 02/20/2025 Cytology Cervical or vaginal smear or scraping study Pap Smear Pathology and Cytology Routine Well woman exam with routine gynecological exam Ordered: 02/20/2025 [facility] Comment on above: Ordered: 02/20/2025 Hemoglobin A1c/Hemoglobin.total in Blood Hemoglobin A1c Lab Routine Missed menses , unspecified gestational age Ordered: 06/29/2024 [facility] Comment on above: Ordered: 06/29/2024 Hepatitis B virus beltran rface Ag [Presence] in Serum or Plasma by Immunoassay Hepatitis B surface antigen Lab Routine Missed menses , unspecified gestational age Ordered: 06/29/2024 [facility] Comment on above: Ordered: 06/29/2024 Hepatitis C virus Ab [Presence] in Serum or Plasma by Immunoassay Hepatitis C antibody Lab Routine Missed menses , unspecified gestational age Ordered: 06/29/2024 [facility] Comment on above: Ordered: 06/29/2024 HIV-1/HIV-2 antigen/antibody combination immunoassay HIV-1 and HIV-2 antibodies Lab Routine Missed menses , unspecified gestational age Ordered: 06/29/2024 [facility] Comment on above: Ordered: 06/29/2024 Neisseria gonorrhoea e DNA [Presence] in Unspecified specimen by INESSA with probe detection Neisseria gonorrhea DNA probe, direct Lab Routine STD exposure Ordered: 02/20/2025 [facility] Comment on above: Ordered: 02/20/2025 Reagin Ab [Presence] in Serum by RPR RPR Lab Routine Missed menses , unspecified gestational age Ordered: 06/29/2024 [facility] Comment on above: Ordered: 06/29/2024 Rubella antibody, IgG Rubella an tibody, IgG Lab Routine Missed menses , unspecified gestational age Ordered: 06/29/2024 [facility] Comment on above: Ordered: 06/29/2024 SURESWAB(R) ADVANCED VAGINITIS PLUS, TMA SURESWAB(R) ADVANCED VAGINITIS PLUS, TMA Pathology and Cytology Routine STD exposure Ordered: 02/20/2025 [facility] Work Phone: Comment on above: Ordered: 02/20/2025 Immunizations Immunization Date Immunization Notes Care Provider Ryne abrams 08-28-2002 influenza virus vacc ine, unspecified formulation [facility]oms Nurse [facility] Healthcare Payers Date Payer Category Payer Medicaid HMO [id number] 2024 [facility] Managed Care - O [id number] 2023 Medicaid [employer] [place] [id number] 2023-Present [address] [place] [id number]. [id number] 2023 Medicaid (Managed Care) [facility] MEDICAID [id number] 2021 Blue Cross Blue Shield 1.2.8 [id number] 2021 Unknown BCBS BCBS xxxxxx [id number] 2021-Present [phone] [address] [place] [address] [id number]. [id number] 2001 Unknown [id number] 2.16.840.1.197080.3.579.2. 593 2001 Unknown [id number] 2.16.840.1.331154.3.579.2. 593 2001 Unknown [id number] 2.16.840.1.477770.3.579.2. 593 2001 Unknown [id number] 2.16.840.1.378360.3.579.2. 593 2001 Unknown [id number] 2.16.840.1.255954.3.579.2. 593 2001 Unknown [id number] 2.16.840.1.184220.3.579.2. 593 2001 Unknown [id number] 2.16.840.1.583015.3.579.2. 593 2001 Unknown [id number] 2.16.840.1.322223.3.579.2. 593 2001 Unknown [id number] 2.16.840.1.848445.3.579.2. 593 2001 Unknown [id number] 2.16.840.1.194954.3.579.2. 593 2001 Unknown [id number] 2.16.840.1.415940.3.579.2. 593 2001 Unknown [id number] 2.16.840.1.618368.3.579.2. 593 2001 Unknown [id number] 2.16.840.1.360487.3.579.2. 593 2001 Unknown [id number] 2.16.840.1.404438.3.579.2. 593 2001 Unknown [id number] 2.16.840.1.413109.3.579.2. 593 2001 Unknown [id number] 2.16.840.1.936875.3.579.2. 593 2001 Unknown [id number] 2.16840.1.963263.3.579.2. 593 2001 Unknown [id number] 2.16.840.1.792758.3.579.2. 593 2001 Unknown [id number] 2.16.840.1.180666.3.579.2. 593 2001 Unknown [id number] 2.16.840.1.818983.3.579.2. 593 2001 Unknown [id number] 2.16840.1.971830.3.579.2. 593 2001 Unknown [id number] 2.16.840.1.350278.3.579.2. 1286 2001 Unknown [id number] 2.16.840.1.606596.3.579.2. 128 2001 Unknown [id number] 2.16.840.1.863994.3.579.2. 1286 2001 Unknown [id number] 2.16.840.1.958149.3.579.2. 128 2001 Unknown [id number] 2.16.840.1.460119.3.579.2. 1286 2001 Unknown [id number] 2.840.1.804332.3.579.2. 1285 2001 Unknown [id number] 2.16840.1.197459.3.579.2. 1258 2001 Unknown [id number] 2.840.1.040928.3.579.2. 1258 2001 Unknown [id number] 2.840.1.429032.3.579.2. 1258 2001 Unknown [id number] 2.840.1.369232.3.579.2. 1258 2001 Unknown [id number] 2.840.1.951352.3.579.2. 1258 2001 Unknown [id number] 2..1.107521.3.579.2. 1258 2001 Unknown [id number] 2.840.1.245739.3.579.2. 1258 2001 Unknown [id number] 2.0.1.141571.3.579.2. 1258 2001 Unknown [id number] 2.0.1.013351.3.579.2. 1258 2001 Unknown [id number] 2.1.533157.3.579.2. 1258 2001 Unknown [id number] 2.840.1.020333.3.579.2. 1258 2001 Unknown [id number] 2.840.1.871614.3.579.2. 1258 2001 Unknown [id number] 2.840.1.028785.3.579.2. 1258 2001 Unknown [id number] 2.840.1.711764.3.579.2. 1258 2001 Unknown [id number] 2.840.1.795717.3.579.2. 1259 2001 Unknown [id number] 2.16.840.1.283184.3.579.2. 1259 1959 Self-pay 1959 Unknown [id number] 1959 Unknown [id number] Unknown [id number] 2.16.840.1.414400.3.579.2. 593 Unknown [id number] 2.16.840.1.348970.3.579.2. 531 Social History Date Type Detail Facility Start: 10-13-2023 End: 06-29-2024 Sex Assigned At [facility] [employer] Other Start: 2001 Sex Assigned At Female F [facility] Start: 10-13-2023 End: 05-10-2025 Tobacco smoking status ARIS Never smoked tobacco [facility] Healthcare Start: 06-29-2024 End: 06-26-2025 Alcoholic beverage intake Current drinker of alcohol (finding) [facility] Start: 10-13-2023 End: 06-29-2024 History of Social function [facility] Start: 05-24-2024 [facility] Start: 2001 Sex assigned at Not on file [facility] Tobacco smoking stat us ARIS Unknown if ever smoked [facility] Work Phone: Start: 04-29-2015 End: 08-11-2024 Sex Female (finding) [facility] Start: 05-10-2025 End: 05-31-2025 Alcoholic beverage intake Ex-drinker (finding) [facility] Unknown [facility] Medical Equipment Procedure Code Equipment Code Equipment Origin al Text Equipment Identifier Dates 1 strip by In Vi tro route Daily Use in the morning prior to breakfast, 1 hour after each meal for a total of 4times daily. [id number] Start: 05-08-2025 End: 06-07-2025 1 each by In Vit ro route Daily Use to check FSBS four times daily [id number] Start: 05-08-2025 End: 06-07-2025 Clinical Notes 04-02-2023 [...] to check FSBS. Blood Glucose Monitoring Suppl ([employer] Glucometer) w/Device kit 1 kit, Does not [...] blood transfusion Lead poisoning Miscarriage ([facility]) Nonsmoker Post depression HISTORY PAST MEDICAL HISTORY SOCIAL HISTORY Past Medical History: Diagnosis Date Anemia Gestational diabetes ([facility]) History of blood transfusion Lead poisoning Miscarriage ([facility]) Nonsmoker Post depression /anxiety Social History [...] nursing note reviewed. Exam conducted with a element winding machine tender present. Vitals: Estimated body mass index is 32.06 kg/m as calculated from the following: Height as of 01/06/23: 5' 3 . Weight as of this encounter: 181 lb. BP: 138/84 Patient's last menstrual period was 10/15/2024 (exact date). ASSESSMENT & PLAN ICD-10-CM 1. Third trimester ([facility]) Z34.93 POCT urinalysis dipstick manually resulted CULTURE, GROUP B STREP WITH SUSCEPTIBLITY CULTURE, GROUP B STREP WITH SUSCEPTIBLITY 2. 36 weeks gestation of ([facility]) Z3A.36 3. Diet controlled gestational diabetes mellitus (GDM), antepartum ([facility]) O24.410 4. induced hypertension, antepartum ([facility]) O13.9 Patient is doing well but has [...] Nimesh Aranda NP documented in this encounter [facility] 06-19-2025 History of Presen t [...] Problems Diagnosis Date Noted induced hypertension, antepartum ([facility]) 05/28/2025 Gestational diabetes mellitus (GDM), antepartum ([facility]) 05/28/2025 Resolved Ambulatory Problems Diagnosis Date Noted No Resolved Ambulatory Problems Past Medical History: Diagnosis Date Anemia Gestational diabetes ([facility]) History of blood transfusion Lead poisoning Miscarriage ([facility]) Nonsmoker Post depression HISTORY PAST MEDICAL HISTORY SOCIAL HISTORY Past Medical History: Diagnosis Date Anemia Gestational diabetes ([facility]) History of blood transfusion Lead poisoning Miscarriage ([facility]) Nonsmoker Post depression /anxiety Social History [...] nursing note reviewed. Exam conducted with a element winding machine tender present. Vitals: Estimated body mass index is 31.89 kg/m as calculated from the following: Height as of 01/06/23: 5' 3 . Weight as of this encounter: 180 lb. BP: 142/86 Patient's last menstrual period was 10/15/2024 (exact date). ASSESSMENT & PLAN ICD-10-CM 1. Third trimester ([facility]) Z34.93 POCT urinalysis dipstick manually resulted 2. 35 weeks gestation of ([facility]) Z3A.35 3. Diet controlled gestational diabetes mellitus (GDM), antepartum ([facility]) O24.410 4. induced hypertension, antepartum ([facility]) O13.9 Return OB: Patient presents [...] Rodriguez DO documented in this encounter [facility] 06-12-2025 History of Presen t [...] Problems Diagnosis Date Noted induced hypertension, antepartum ([facility]) 05/28/2025 Gestational diabetes mellitus (GDM), antepartum ([facility]) 05/28/2025 Resolved Ambulatory Problems Diagnosis Date Noted No Resolved Ambulatory Problems Past Medical History: Diagnosis Date Anemia Gestational diabetes ([facility]) History of blood transfusion Lead [facility] Nonsmoker Post depression HISTORY PAST MEDICAL HISTORY SOCIAL HISTORY Past Medical History: Diagnosis Date Anemia Gestational diabetes ([facility]) History of blood transfusion Lead poisoning Miscarriage ([facility]) Nonsmoker Post depression /anxiety Social History [...] ASSESSMENT & PLAN ICD-10-CM 1. Third trimester ([facility]) Z34.93 POCT urinalysis dipstick manually resulted 2. 34 weeks gestation of ([facility]) Z3A.34 POCT urinalysis dipstick manually resulted [...] TRUE Argueta documented in this encounter [facility] 06-05-2025 Miscellaneous Notes Received blood [...] again next week. documented in this encounter [facility] 06-05-2025 Telephone encounter Note Received blood [...] send in more numbers again next week. 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 Patient does have multiple ultrasound scheduled with us Thank you for allowing me to participate in Vimal Funes . If there any questions please do not hesitate to contact us. Sincerely, MANAS MARTIN MD Video Visit via Real-time Synchronous Audiovisual Provider Location: [facility] AT [address] [facility] [id number] Patient Location: Other [facility] office Patient Location Short Filler Bunch Machine Operator: None Video Visit Consent Statement: I discussed [...] that there are some limitations compared to [id number] evaluations. We elected to proceed. documented [facility] 05-28-2025 Miscellaneous Notes Called regarding blood sugar logs from 05/20/25-05/26/25 but received voicemail. Vimal had 4 elevated fasting blood sugars and 2 elevated blood sugars after breakfast. Most recent fasting blood sugars have improved and she had three in target. We did talk last week about changing her evening snack. Will send a MyChart message. [facility] 05-28-2025 Telephone encounter Note Called regarding blood sugar logs from 05/20/25-05/26/25 but received voicemail. Vimal had 4 elevated fasting blood sugars and 2 elevated blood sugars after breakfast. Most recent fasting blood sugars have improved and she had three in target. We did talk last week about changing her evening snack. Will send a MyChart message. [facility] Work [facility]: 05-28-2025 History of Presen t illness Narrative Reason for Appointment: Patient ID: Vimal Funes is a 25 y.o. female who presents for Routine Visit Patient presents today for Return OB appointment. MEDICATIONS Current Outpatient Medications Medication Instructions Alcohol Swabs (Alcohol Prep Pad) 70 % pads 1 Pad, Topical, Daily, Use four times daily to check FSBS. Blood Glucose Monitoring Suppl ([employer] Glucometer) w/Device kit 1 kit, Does not [...] Problems Diagnosis Date Noted induced hypertension, antepartum ([facility]) 05/28/2025 Gestational diabetes mellitus (GDM), antepartum ([facility]) 05/28/2025 Resolved Ambulatory Problems Diagnosis Date Noted No Resolved Ambulatory Problems Past Medical History: Diagnosis Date Anemia Gestational diabetes ([facility]) History of blood transfusion Lead poisoning Miscarriage ([facility]) Nonsmoker Post depression HISTORY PAST MEDICAL HISTORY SOCIAL HISTORY Past Medical History: Diagnosis Date Anemia Gestational diabetes ([facility]) History of blood transfusion Lead poisoning Miscarriage ([facility]) Nonsmoker Post depression /anxiety Social History [...] nursing note reviewed. Exam conducted with a element winding machine tender present. Vitals: Estimated body mass index is 32.06 kg/m as calculated from the following: Height as of 01/06/23: 5' 3 . Weight as of this encounter: 181 lb. BP: 136/80 Patient's last menstrual period was 10/15/2024 (exact date). ASSESSMENT & PLAN ICD-10-CM 1. Third trimester ([facility]) Z34.93 POCT urinalysis dipstick manually resulted 2. 32 weeks gestation of ([facility]) Z3A.32 3. Gestational diabetes mellitus (GDM), antepartum, gestational diabetes method of control unspecified ([facility]) O24.419 4. induced hypertension, antepartum ([facility]) O13.9 Return OB: Patient presents [...] Rodriguez DO documented in this encounter [facility] 05-22-2025 History of Presen t illness Narrative Reason for Appointment: Patient ID: Vimal Funes is a 25 y.o. female who presents for Routine Visit Patient presents today for Return OB appointment. MEDICATIONS Current Outpatient Medications Medication Instructions Alcohol Swabs (Alcohol Prep Pad) 70 % pads 1 Pad, Topical, Daily, Use four times daily to check FSBS. Blood Glucose Monitoring Suppl ([employer] Imaging Glucometer) w/Device kit 1 kit, Does not [...] nursing note reviewed. Exam conducted with a element winding machine tender present. Vitals: Estimated body mass index is 31.49 kg/m as calculated from the following: Height as of 01/06/23: 5' 3 . Weight as of this encounter: 177 lb 12 oz. BP: (!) 138/92 Patient's last menstrual period was 10/15/2024 (exact date). ASSESSMENT & PLAN ICD-10-CM 1. Third trimester ([facility]) Z34.93 POCT urinalysis dipstick manually resulted 2. 31 weeks gestation of ([facility]) Z3A.31 Return OB: Patient presents today [...] Rodriguez DO documented in this encounter [facility] 05-21-2025 Miscellaneous Notes Called regarding [...] sugars next week. documented in this encounter [facility] 05-21-2025 Telephone encounter Note Called regarding [...] will send in blood sugars next week. [facility] Work Phone: 05-14-2025 History of Presen t illness Narrative Reason for Appointment: Patient ID: Vimal Funes is a 25 y.o. female who presents for Routine Visit Patient presents today for Return OB appointment. MEDICATIONS Current Outpatient Medications Medication Instructions Alcohol Swabs (Alcohol Prep Pad) 70 % pads 1 Pad, Topical, Daily, Use four times daily to check FSBS. Blood Glucose Monitoring Suppl ([employer] Imaging Glucometer) w/Device kit 1 kit, Does not [...] blood transfusion Lead poisoning Miscarriage ([facility]) Nonsmoker Post depression HISTORY PAST MEDICAL HISTORY SOCIAL HISTORY Past Medical History: Diagnosis Date Anemia Gestational diabetes ([facility]) History of blood transfusion Lead poisoning Miscarriage ([facility]) Nonsmoker Post depression /anxiety Social History [...] nursing note reviewed. Exam conducted with a element winding machine tender present. Vitals: Estimated body mass index is 31.35 kg/m as calculated from the following: Height as of 01/06/23: 5' 3 . Weight as of this encounter: 177 lb. BP: 140/90 Patient's last menstrual period was 10/15/2024 (exact date). ASSESSMENT & PLAN ICD-10-CM 1. Third trimester ([facility]) Z34.93 POCT urinalysis dipstick manually resulted 2. 30 weeks gestation of ([facility]) Z3A.30 POCT urinalysis dipstick manually resulted 3. induced hypertension, antepartum ([facility]) O13.9 Creatinine Protein, urine, 24 hour [...] Rodriguez DO documented in this encounter [facility] 05-13-2025 Group counseling note Patient: [...] Face to face time was 110 minutes. [email or web address] Work Phone: 05-13-2025 Miscellaneous Notes Patient: [...] was 110 minutes. documented in this encounter [facility] 05-07-2025 Telephone encounter Note Called pt to let her know that she did not pass her 3 hour glucose test and that I would be sending in supplies and referring her to diabetic education. [facility] 05-07-2025 Miscellaneous Notes Called pt to let her know that she did not pass her 3 hour glucose test and that I would be sending in supplies and referring her to diabetic education. documented in this encounter [facility] 04-30-2025 History of Presen t [...] resulted 2. -induced hypertension in third trimester ([facility]) O13.3 US biophysical profile w non stress test US OB follow up transabdominal approach labetalol (Normodyne) 300 MG tablet 3. Gestational diabetes mellitus (GDM) in third trimester, gestational diabetes method of control unspecified ([facility]) O24.419 US biophysical profile w non [...] TRUE Argueta documented in this encounter [facility] 04-25-2025 History of Presen t [...] PLAN ICD-10-CM 1. Second trimester ([facility]) Z34.92 2. 27 weeks gestation of ([facility]) Z3A.27 Patient presents for BP [...] TRUE Argueta documented in this encounter [facility] 04-11-2025 History of Presen t [...] History: Diagnosis Date Anemia Gestational diabetes ([facility]) History of blood transfusion Lead poisoning Miscarriage ([facility]) Nonsmoker Post depression HISTORY PAST MEDICAL HISTORY SOCIAL HISTORY Past Medical History: Diagnosis Date Anemia Gestational diabetes ([facility]) History of blood transfusion Lead poisoning Miscarriage ([facility]) Nonsmoker Post depression /anxiety Social History [...] ASSESSMENT & PLAN ICD-10-CM 1. Second trimester ([facility]) Z34.92 POCT urinalysis dipstick manually resulted 2. 25 weeks gestation of ([facility]) Z3A.25 3. Diabetes mellitus screening Z13.1 [...] TRUE Argueta documented in this encounter [facility] 03-14-2025 History of Presen t illness Narrative Reason for Appointment: Patient ID: iVmal Funes is a 24 y.o. female who [...] History: Diagnosis Date Anemia Gestational diabetes ([facility]) History of blood transfusion Lead poisoning Miscarriage ([facility]) Nonsmoker Post depression HISTORY PAST MEDICAL HISTORY SOCIAL HISTORY Past Medical History: Diagnosis Date Anemia Gestational diabetes ([facility]) History of blood transfusion Lead poisoning Miscarriage ([facility]) Nonsmoker Post depression /anxiety Social History [...] nursing note reviewed. Exam conducted with a element winding machine tender present. Vitals: Estimated body mass index is 29.23 kg/m as calculated from the following: Height as of 01/06/23: 5' 3 . Weight as of this encounter: 165 lb. BP: 112/76 Patient's last menstrual period was 10/15/2024 (exact date). ASSESSMENT & PLAN ICD-10-CM 1. Second trimester ([facility]) Z34.92 POCT urinalysis dipstick manually resulted 2. 21 weeks gestation of ([facility]) Z3A.21 Patient presents today for a routine obstetrics appointment. Patient is currently 21w3d with a Estimated Date of Delivery: 07/22/25. Patient has no complaints at this time and will return to clinic in 4 weeks. Documented by Diamond Borja LPN on behalf of: Jose Rodriguez DO documented in this encounter [facility] 02-20-2025 History of Presen t [...] transfusion Lead poisoning Miscarriage Nonsmoker Post depression ([facility]) HISTORY PAST MEDICAL HISTORY SOCIAL HISTORY Past Medical History: Diagnosis Date Anemia Gestational diabetes History of blood transfusion Lead poisoning Miscarriage Nonsmoker Post depression ([facility]) /anxiety Social History Tobacco Use Smoking [...] nursing note reviewed. Exam conducted with a element winding machine tender present. Vitals: Estimated body mass index [...] TRUE Argueta documented in this encounter [facility] 01-14-2025 History of Presen t [...] nursing note reviewed. Exam conducted with a element winding machine tender present. Vitals: Estimated body mass index [...] meat, and stay away from [facility]. Patient has been consulted regarding any [...] Rodriguez DO documented in this encounter [facility] 08-20-2024 History of Presen t [...] having a D&C Hysteroscopy performed at [facility] with Dr. Rodriguez. Pathology results was reviewed with the patient in great detail and all restrictions have been lifted. Follow Up: Patient is to return to the office for annual exam unless needed otherwise. Documented by TRUE Argueta on behalf of: TRUE Argueta documented in this encounter [facility] 08-06-2024 History of Presen t [...] nursing note reviewed. Exam conducted with a element winding machine tender present. Vitals: Estimated body mass index [...] vaginal bleeding. Patient to discuss date with Stakeholder Manager prior to leaving. Patient is able to obtain work note for the week and if longer is needed she will reach out to office. Documented by Diamond Borja LPN on behalf of: Jose Rodriguez DO documented in this encounter [facility] 06-29-2024 History of Presen t [...] blood transfusion Lead poisoning Nonsmoker Post depression ([facility]) Family History Problem Relation [...] meat, and stay away from [facility]. Patient has also been advised to [...] Peacock documented in this encounter [facility] CNS Response 12-26-2022 Evaluation note Encounter Date Diagnosis Assessment [...] appointment to be seen soon as possible [employer] Other [employer] noteNo assessment information available [facility] Work Phone: [email or web address] note* Diagnosis Missed menses , unspecified gestational age Encounter for supervision of normal first in first trimester Nausea Nausea alone 7 weeks gestation of documented in this encounter [facility] CNS ResponseEvQuarterlyation note* Diagnosis Miscarriage Unspecified spontaneous without mention of complication documented in this encounter [facility] CNS ResponseEvaluation note* Diagnosis Postoperative examination Follow-up examination, following unspecified surgery documented in this encounter [facility] [employer] note* Diagnosis 13 weeks gestation of Second trimester state, incidental documented in this encounter [facility] [employer] note* Diagnosis Screening, , for anatomic survey Encounter for anatomic survey Well woman exam with routine gynecological exam Routine gynecological examination STD exposure Second trimester state, incidental 18 weeks gestation of Urinary frequency documented in this encounter [facility] [employer] note* Diagnosis Second trimester ([facility]) state, incidental 21 weeks gestation of ([facility]) documented in this encounter [facility] CNS ResponseEvaluation note* Diagnosis Second trimester ([facility]) state, incidental [...] unspecified fetus- Primary [facility]* Diagnosis Third trimester ([facility]) state, incidental 36 weeks gestation of ([facility]) Diet controlled gestational diabetes mellitus (GDM), antepartum (HHS-HCC) induced hypertension, antepartum (HHS-HCC) Transient hypertension of , antepartum documented in this encounter [facility] HealthcareInstructionsNot on filedocumented in this encounterProMedica Health SystemInstructionsNot on filedocumented in this encounterProHartselle [facility] Health SystemInstructionsNot on filedocumented in this encounterProOhiohealth [facility] SystemInstructionsNot on filedocumented in this encounterThe [facility] Hospital [facility] System Summary Purpose Family History No Family [...] section and content) DATE CREATED AUTHOR 09/24/2021 [facility] DATE CREATED AUTHOR AUTHOR'S ORGANIZ ATION 12/07/2022 [facility] DATE CREATED AUTHOR AUTHOR'S ORGANIZ ATION 08/15/2024 [facility] DATE CREATED AUTHOR AUTHOR'S ORGANIZ ATION 06/06/2025 [facility] DATE CREATED AUTHOR AUTHOR'S ORGANIZ ATION 06/20/2025 [facility] DATE CREATED AUTHOR AUTHOR'S ORGANIZ ATION 06/30/2025 [facility]ulatory [facility] DATE CREATED AUTHOR AUTHOR'S ORGANIZ ATION 07/01/2025 [facility] dical [...] method of control unspecified Jose Rodriguez DO [address] [place] [address] [address] Josué [place] [address] Phone: tel: fax: Maternal- Medicine at [facility] [address] [place] [address] Phone: tel: fax: Referral ID Status Reason Start Date Expiration Date Visits Requested Visits Authorized [id number] Pending Review Specialty Services Required 05/09/2025 05/09/2026 1 1 Care Teams (unrecognized sec tion and content) Team Status: Inactive Member Role Status Dates Jennifer Huston NP-C Attending Provider Active [employer] Relationship Specialty Start Date End Date Vaishali Zapata MD [address] [place] [address] PCP - General Family Medicine 02/04/23 [employer] Relationship Specialty Start Date End Date Vaishali Zapata MD [address] [place] [address] PCP - General Family Medicine 02/04/23 Team Status: Active Member Role Status Dates PHYSICIAN NO FAMILY Primary Care Provider Active Team Status: Inactive Member Role Status Dates PHYSICIAN NO FAMILY Primary Care Provider Active Start: August 10, 2024 End: August 10, 2024 Jose Rodriguez DO Attending Provider Active Start : August 10, 2024 End: August 10, 2024 [employer] Relationship Specialty Start Date End Date Unallocated, [place] [address] PCP - General Family Medicine 08/03/24 [employer] Relationship Specialty Start Date End Date Unallocated, [place] [address] PCP - General Family Medicine 08/03/24 [employer] Relationship Specialty Start Date End Date Unallocated, MD Zuhair Aguero [place] [address] PCP - General Family Medicine 08/03/24 [employer] Relationship Specialty Start Date End Date Unallocated, Arjun Vo MD [facility] [place] [address] PCP - General Family Medicine 08/03/24 [employer] Relationship Specialty Start Date End Date Unallocated, Arjun Vo MD [facility] [place] [address] PCP - General Family Medicine 08/03/24 [employer] Relationship Specialty Start Date End Date Unallocated, Arjun Vo MD [facility] [address] [facility] [facility] [place] [address] PCP - General Family Medicine 08/03/24 [employer] Relationship Specialty Start Date End Date Unallocated, Arjun Vo MD [facility] [address] [place] [address] PCP - General Family Medicine 08/03/24 [employer] Relationship Specialty Start Date End Date Unallocated, Arjun Vo MD [facility] [address] [facility] [facility] [place] [address] PCP - General Family Medicine 08/03/24 [employer] Relationship Specialty Start Date End Date Unallocated, Arjun Vo MD [facility] [place] [address] PCP - General Family Medicine 08/03/24 [employer] Relationship Specialty Start Date End Date Unallocated, Arjun Vo MD [facility] [place] [facility] [place] [address] PCP - General Family Medicine 08/03/24 [employer] Relationship Specialty Start Date End Date Unallocated, [place] [address] PCP - General Family Medicine 08/03/24 [employer] Relationship Specialty Start Date End Date Unallocated, Arjun Vo MD [facility] [place] [facility] [place] [address] PCP - [facility] 08/03/24 [employer] Relationship Specialty Start Date End Date Unallocated, Arjun Vo MD [facility] [place] [address] PCP [facility] 08/03/24 [employer] Relationship Specialty Start Date End Date Unallocated, Arjun Vo MD [facility] [address] [facility] [place] [address] PCP [facility] 08/03/24 [employer] Relationship Specialty Start Date End Date Unallocated, Arjun Vo MD [facility] [place] [address] PCP [facility] 08/03/24 [employer] Relationship Specialty Start Date End Date Unallocated, Arjun Vo MD [facility] [address] [facility] [place] [address] PCP [facility] 08/03/24 [employer] Relationship Specialty Start Date End Date Unallocated, Arjun Vo MD [facility] [address] [place] [address] PCP [facility] 08/03/24 [employer] Relationship Specialty Start Date End Date Unallocated, Arjun Vo MD [facility] [address] [facility] [place] [address] [facility] Medicine 08/03/24 Goals (unrecognized section and [...] BE BASED ON THE PRIMARY CLINICAL RECORDS. [facility] [employer] [facility]. provides no warranty or guarantee of the accuracy or completeness of information in this document.
[2025-07-04 11:27] LABS: Glucose Urine UA NEGATIVE (NEGATIVE)
[2025-07-04 11:43] LABS: Cannabinoid Screen Urine NEGATIVE (NEGATIVE); Methamphetamines Screen Urine NEGATIVE (NEGATIVE); Tricyclic Antidepressant Urine NEGATIVE (NEGATIVE)
[2025-07-04 11:46] LABS: Cast Seen? NONE SEEN #/LPF (NONE SEEN); Crystals Seen? None Seen #/HPF (None Seen); Urine Culture Indicated YES-LC
[2025-07-04 12:58] LABS: Hematocrit 42.5 % (36.0-48.0); Hemoglobin 14.6 g/dL (12.0-16.0); Immature Granulocytes Abs Auto 0.05 10^3/uL (0.00-0.03); Immature Granulocytes Pct Auto 0.4 % (0.0-0.5); Lymphocytes Absolute Auto 1.4 10^3/uL (1.2-3.8); Mean Corpuscular HGB Conc 34.4 g/dL (29.9-35.2); Mean Corpuscular Hemoglobin 31.9 pg (26.7-34.0); Mean Corpuscular Volume 93.0 fL (81.0-99.0); Platelet Count 175 10^3/uL (150-450); Red Blood Count 4.57 10^6/uL (4.20-5.40); White Blood Count 12.6 10^3/uL (4.0-11.0)
[2025-07-04] MEDS: 0.9 % SODIUM CHLORIDE 1,000 ML 125 ML IV (13:05)
[2025-07-04] MEDS: OXYTOCIN/0.9 % SODIUM CHLORIDE 10 UNITS/500 ML PLAST..BAG 6 UNIT IV (13:05)
[2025-07-04 13:14] LABS: Alanine Aminotransferase 28 U/L (14-59); Aspartate Amino Transferase 29 U/L (15-37); Blood Urea Nitrogen 7.0 mg/dL (7.0-18.0); Estimated GFR (African America >60 (>=60 mL/min/1.73m^2); Estimated GFR (Non-African Ame >60 (>=60 mL/min/1.73m^2); Uric Acid 4.8 mg/dL (2.6-6.0)
[2025-07-04 13:19] LABS: Partial Thromboplastin Time 26.5 sec (22.3-36.2); Prothrombin Time 9.8 sec (9.0-11.6)
[2025-07-04 13:21] LABS: Fibrinogen 461 mg/dL (200-400); INR <0.93
[2025-07-04] MEDS: LABETALOL HCL 100 MG TABLET 300 MG PO ×2 (15:22→22:18)
[2025-07-04] MEDS: CITRIC ACID/SODIUM CITRATE 30 ML SOLUTION ORACIT SHOHL'S SOLN PO (17:34)
[2025-07-04] MEDS: FAMOTIDINE/PF 20 MG/2 ML VIAL IV (17:34)
[2025-07-04] MEDS: CEFAZOLIN SODIUM/DEXTROSE,ISO 2 GM/50 ML PIGGYBACK IV ×2 (17:34→23:44)
[2025-07-04] MEDS: METOCLOPRAMIDE HCL 10 MG/2 ML VIAL IVP (17:34)
[2025-07-04 18:14] LABS: Total Protein Urine Random <6.0 mg/dL (<=11.9)
--- NOTE | 2025-07-04 18:32 | PM.OBPRCCS ---
Procedure Pre-op/Post-op diagnoses: Pre-Op/Post-Op Diagnoses Operation Date: 07/04/25 18:00 <No data on this case meets the specified criteria> Procedure: Procedures Operation Date: 07/04/25 18:00 Actual Procedure Side Surgeon p Not Applicable Jose Rodriguez DO Curtain Inspector: Kusum Zhao Estimated blood loss (mL): 575 Disposition: floor Anesthesia type: Spinal
--- NOTE | 2025-07-04 18:33 | PM.ONB ---
Brief Operative Note Date of procedure: 07/04/25 Pre-op diagnosis general: iup at 36 6/7wks, severe preeclampsia, iugr, non reassuring heart tones Post-op diagnosis: same as pre-op Procedure: NAME OF PROCEDURE: [ section ] PROCEDURE: Patient was taken back to the Operating Room where she was given a spinal anesthesia with Duramorph without difficulty. She was prepped and draped in the normal sterile fashion. A Pfannenstiel skin incision was then made 2 cm above the symphysis pubis and carried down to underlying rectus fascia using a Bovie. The fascia was incised in the midline and extended laterally using Valentine scissors. Two Chaz clamps were placed on the superior aspect of the fascia and dissected off the underlying rectus muscles. The same was performed on the inferior aspect as well. The muscles were then in the midline. Peritoneum was identified and entered bluntly. The peritoneum was then extended superiorly and inferiorly with good visualization of the bladder. The bladder blade was inserted. A low transverse incision was made on the patient's uterus and extended laterally digitally. The was then delivered atraumatically after the bladder blade was removed in the cephalic position. The cord was clamped and cut. Cord blood was obtained. The infant was handed off to awaiting team. The patient's placenta was spontaneously delivered. The uterus was then exteriorized. The uterus was cleared of all clots and debris. The bladder blade was reinserted. The patient's uterine incision was closed using #0 Vicryl in a running lock fashion. Excellent hemostasis was assured. The uterus was then returned to the patient's abdomen. The patient's abdomen was copiously irrigated using warm saline. Peritoneal gutters were cleared of all clots and debris. Again excellent hemostasis was assured. The patient's peritoneum was closed using 3-0 Vicryl in a running fashion. The patient's fascia was closed using #0 Vicryl in a running fashion. The patient's skin was closed using 4-0 Vicryl subcuticularly. The patient tolerated the procedure well. Sponge, lap, and needle counts were correct x2. The patient was taken to the Recovery Room in stable condition. Anesthesia: spinal Surgeon: Jose Rodriguez [employer] Supervisor: Kusum Zhao Estimated blood loss (mL): 575 Pathology: other (placenta) Condition: stable Disposition: floor Urinary Catheter Management Urinary Catheter Management Urethral: Cath placed during this visit: no
[2025-07-04] MEDS: MAGNESIUM-BOLUS FROM THE BAG- 40 GM/1,000 ML IV.SOLN IV (19:34)
[2025-07-04] MEDS: 0.9 % SODIUM CHLORIDE 1,000 ML 75 ML IV (19:34)
[2025-07-04] MEDS: MAGNESIUM SULFATE IN WATER 40 GM/1,000 ML IV.SOLN IV (19:55)
[2025-07-04] MEDS: KETOROLAC TROMETHAMINE 30 MG/ML VIAL IVP (23:48)
[2025-07-05] VITALS (11 sets, daily range): BP systolic 120–143; BP diastolic 57–82; PULSE 90–96; TEMP 36.7–37.1; O2SAT 98
[2025-07-05] MEDS: ENOXAPARIN SODIUM 40 MG/0.4 ML SYRINGE SUBQ (05:16)
[2025-07-05] MEDS: LABETALOL HCL 100 MG TABLET 300 MG PO ×3 (06:04→22:16)
[2025-07-05] MEDS: KETOROLAC TROMETHAMINE 30 MG/ML VIAL IVP ×3 (06:04→20:36)
[2025-07-05 06:38] LABS: Hematocrit 33.7 % (36.0-48.0); Hemoglobin 11.4 g/dL (12.0-16.0); Immature Granulocytes Abs Auto 0.08 10^3/uL (0.00-0.03); Immature Granulocytes Pct Auto 0.4 % (0.0-0.5); Lymphocytes Absolute Auto 1.1 10^3/uL (1.2-3.8); Mean Corpuscular HGB Conc 33.8 g/dL (29.9-35.2); Mean Corpuscular Hemoglobin 32.1 pg (26.7-34.0); Mean Corpuscular Volume 94.9 fL (81.0-99.0); Platelet Count 194 10^3/uL (150-450); Red Blood Count 3.55 10^6/uL (4.20-5.40); White Blood Count 17.8 10^3/uL (4.0-11.0)
--- NOTE | 2025-07-05 07:55 | P.OBPN_ITS ---
OB - PN: Subj Subjective Patient comments: no complaints and pain well controlled [place] status: doing well Exam Constitutional Vital Signs, click to edit/add: Last Vital Signs Temp 98.5 F 07/05/25 05:19 Pulse 75 07/04/25 23:41 Resp 15 07/04/25 23:41 BP 124/78 07/05/25 06:35 Pulse Ox 96 07/04/25 20:00 O2 Del Method Room Air 07/05/25 00:00 Documenting provider has reviewed patient's vital signs: yes Common normals: no apparent distress Respiratory Common normals: normal respiratory effort and clear to auscultation bilaterally Cardio Common normals: regular rate and regular rhythm GI Common normals: Normal to inspection, nondistended, normoactive bowel sounds present Extremity Common normals: normal to inspection, no clubbing, cyanosis or edema and no calf tenderness Results Labs Labs: Short CBC 07/04/25 07/05/25 Range/Units 12:42 06:18 WBC 12.6 H 17.8 H (4.0-11.0) 10^3/uL Hgb 14.6 11.4 L (12.0-16.0) g/dL Hct 42.5 33.7 L (36.0-48.0) % Plt Count 175 194 (150-450) 10^3/uL BMP 07/04/25 12:42 BUN 7.0 Creatinine 0.39 L Liver Function 07/04/25 Range/Units 12:42 AST 29 (15-37) U/L ALT 28 (14-59) U/L Urine 07/04/25 Range/Units 11:00 Urine Color Lt. yellow (YELLOW) Urine Clarity Clear (CLEAR) Urine pH 6.5 (5.0-9.0) Ur Specific [place] <=1.005 A (1.005-1.025) Urine Protein Negative (NEG/TRACE) mg/dL Urine Glucose (UA) Negative (NEGATIVE) mg/dL Urinary Catheter Management Urinary Catheter Management Urethral: Cath placed during this visit: yes Urethral indwelling: No Insertion date: 07/04/25 Insertion time: 17:15 OB - PN: A/P Assessment and Plan (1) Intrauterine : (2) Severe preeclampsia: Assessment and Plan: dc mag at 24hrs (3) Gestational hypertension: Assessment and Plan: cont labetalol Plan - day: 1 Plan: routine postop care Time Spent with Patient Time: Total time spent is greater than 50% in coordination of care (as documented) at patient's floor/unit and/or counseling patient: Total time spent with greater than 50% in coordination of care (as documented) at patient's floor/unit and/or counseling patient: less than 15 minutes
[2025-07-05] MEDS: DOCUSATE SODIUM 100 MG CAPSULE PO ×2 (08:16→20:36)
[2025-07-05] MEDS: 0.9 % SODIUM CHLORIDE 1,000 ML 75 ML IV (09:39)
[2025-07-05] MEDS: MAGNESIUM SULFATE IN WATER 40 GM/1,000 ML IV.SOLN IV (14:15)
[2025-07-05] MEDS: SIMETHICONE 80 MG TAB.CHEW PO ×2 (14:21→18:24)
[2025-07-05] MEDS: OXYCODONE HCL/ACETAMINOPHEN 5MG/325MG 1 TAB PO (23:00)
[2025-07-06 00:36] VITALS: TEMP 36.8
[2025-07-06 00:37] VITALS: BP 112/53; PULSE 82
[2025-07-06] MEDS: SIMETHICONE 80 MG TAB.CHEW PO ×2 (00:37→11:15)
[2025-07-06] MEDS: KETOROLAC TROMETHAMINE 30 MG/ML VIAL IVP (01:55)
[2025-07-06 06:07] VITALS: BP 125/56; PULSE 80
[2025-07-06] MEDS: ENOXAPARIN SODIUM 40 MG/0.4 ML SYRINGE SUBQ (06:07)
[2025-07-06] MEDS: LABETALOL HCL 100 MG TABLET 300 MG PO (06:07)
[2025-07-06 08:06] VITALS: BP 131/64; PULSE 80; TEMP 36.6
[2025-07-06 08:20] VITALS: BP 131/64; PULSE 80
[2025-07-06] MEDS: IBUPROFEN 400 MG TABLET 800 MG PO (08:26)
[2025-07-06] MEDS: DOCUSATE SODIUM 100 MG CAPSULE PO (08:27)
--- NOTE | 2025-07-06 08:45 | P.OBPN_ITS ---
OB - PN: Subj Subjective Patient comments: no complaints and pain well controlled [place] status: doing well Exam Constitutional Vital Signs, click to edit/add: Last Vital Signs Temp 97.8 F 07/06/25 08:06 Pulse 80 07/06/25 08:20 Resp 18 07/06/25 08:06 BP 131/64 07/06/25 08:20 Pulse Ox 98 07/05/25 12:39 O2 Del Method Room Air 07/05/25 19:35 Documenting provider has reviewed patient's vital signs: yes Common normals: no apparent distress Respiratory Common normals: normal respiratory effort and clear to auscultation bilaterally Cardio Common normals: regular rate and regular rhythm GI Common normals: Normal to inspection, nondistended, normoactive bowel sounds present Extremity Common normals: normal to inspection, no clubbing, cyanosis or edema and no calf tenderness Urinary Catheter Management Urinary Catheter Management Urethral: Cath placed during this visit: yes, but has since been removed by the nurse Urethral indwelling: No Insertion date: 07/04/25 Insertion time: 17:15 Removal date: 07/05/25 Removal time: 19:45 OB - PN: A/P Assessment and Plan (1) Intrauterine : (2) Severe preeclampsia: (3) Gestational hypertension: Plan - day: 2 Plan: routine postop care Time Spent with Patient Time: Total time spent is greater than 50% in coordination of care (as documented) at patient's floor/unit and/or counseling patient: Total time spent with greater than 50% in coordination of care (as documented) at patient's floor/unit and/or counseling patient: less than 15 minutes
[2025-07-06] MEDS: ACETAMINOPHEN 500 MG TABLET 1000 MG PO (12:58)
--- NOTE | 2025-07-06 13:06 | DS_ITS ---
DISCHARGE DATE: ??07/06/2025 ? PRIMARY DIAGNOSES: 1.? Intrauterine at 36 6/7 weeks. 2.? Severe preeclampsia. 3.? IUGR (intrauterine growth restriction) 4.? Non-reassuring heart tones. ? PROCEDURE:? section. ? HOSPITAL COURSE:? As expected.? Please see chart for full details.? ? LABORATORY DATA:? Please see chart. ? COMPLICATIONS:? None. ? DISCHARGE CONDITION:? Stable. ? CONSULTATION:? Anesthesia. ? DISCHARGE INSTRUCTIONS: 1.? Diet:? Regular. 2.? Medications: a.? Percocet 5/325 one to two p.o. every 4-6 hours p.r.n. pain. b.? Motrin 800 one p.o. every 8 hours p.r.n. pain. 3.? Followup in one week. Restrictions:? Pelvic rest for 6 weeks.? No heavy lifting.? May drive when pain free and no longer on narcotics. MTDD
== END 2025-07-06 13:06 | disposition home or self-care (01) | DRG 788 ==
PROVIDERS: Admitting Provider Obstetrics & Gynecology; PCP Nurse Practitioner Family; Visit Provider Obstetrics & Gynecology
PROC: 10D00Z1 Extraction of Products of Conception, Low, Open Approach (ICD-10-PCS; CPT 59514; principal; 2025-07-04 18:00)
DX: O14.14 Severe pre-eclampsia complicating childbirth (principal); O36.5930 Maternal care for other known or suspected poor fetal growth, third trimester, not applicable or unspecified; O24.420 Gestational diabetes mellitus in childbirth, diet controlled; O76 Abnormality in fetal heart rate and rhythm complicating labor and delivery; Z3A.36 36 weeks gestation of pregnancy; Z37.0 Single live birth
CPT/HCPCS: 36415; 51702; 59050; 80307; 81001; 82565; 82570; 84156; 84450; 84460; 84520; 84550; 85025; 85384; 85610; 85730; 86850; 86900; 86901; 87086; 94667; 94668; J0690; J1100; J1650; J1885; J2274; J2371; J2405; J2590; J2765; J3475; J3490